=== PATIENT | male | born 1955 | race Caucasian/White ===

== ENCOUNTER 2019-04-27 13:47 | Emergency (ER) | payer MEDICAID, SELFPAY ==
[2019-04-27] VITALS (8 sets, daily range): BP systolic 137–169; BP diastolic 57–110; PULSE 89–121; RESP 16–18; TEMP 36.4–37.1; O2SAT 93–97; BMI 33.6
--- NOTE | 2019-04-27 16:03 | RAD_ITS ---
STUDY: X-RAY - LEFT FOOT CLINICAL: Male, 64 years old. Plantar ulcer. TECHNIQUE: 3 view(s) of the foot. COMPARISON: None. FINDINGS: There is an enthesophyte involving the posterior superior calcaneus at the site of insertion of the Achilles tendon. There is an additional plantar calcaneal enthesophyte present. There are degenerative changes of the subtalar, talonavicular, calcaneocuboid and tarsal articulations. Normal metatarsi. There is loss of all normal tarsometatarsal joint spaces. There is joint space loss of the first MTP joint noted as well. Normal interphalangeal joint of the great toe. Normal phalanges of the great toe. Normal interphalangeal joints and phalanges of the lesser toes. 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 RAD/Foot min 3 Views IMPRESSION: No osteomyelitis identified. Loss of the normal TMT joint spaces likely secondary to underlying arthritis. Soft tissue defect along the plantar aspect of the forefoot blood donor unit assistant with an underlying ulcer. Electronically Signed: Harriet Reveles MD at 17:06 EDT Tel , Service support ,
[2019-04-27] MEDS: 0.9% Normal Saline 1,000 ML 150 ML IV (16:30)
[2019-04-27 16:33] LABS: Absolute Lymphocyte Count 2.03 X10^3/uL (0.83-4.51); Absolute Neutrophil Count 9.2 X10^3/uL (2.0-7.7); Basophil# 0.12 X10^3/uL; Eosinophil# 0.04 X10^3/uL; Eosinophils% 0.3 % (0-5); Hematocrit 52.1 % (40-54); Hemoglobin 17.5 g/dL (13.0-16.5); Lymphocyte # 2.03 X10^3/ul (4.0); Lymphocyte % 16.1 % (19-41); Mean Corp Hgb Conc 33.6 g/dL (32-36); Mean Corpuscular Hgb 31.1 pg (27.0-32.0); Mean Corpuscular Volume 92.7 fL (80-94); Mean Platelet Vol. 10.9 fl (6.2-12.0); Monocyte# 1.11 X10^3/uL; Monocyte% 8.8 % (0-10); NRBC Flagged by Analyzer 0 % (0-5); Neutrophil # 9.17 X10^3/uL (2.7-7.7); Platelet Count 179 K/mm3 (150-450); RBC Distribution Width CV 12.4 % (11.6-14.6); RBC Distribution Width SD 42.5 fl (35.1-43.9); Red Blood Count 5.62 M/mm3 (4.6-6.2); White Blood Count 12.6 K/mm3 (4.4-11.0)
[2019-04-27 16:46] LABS: Anion Gap 11 (5-15); BUN 10 mg/dL (7-18); BUN/Creat Ratio 13.9 RATIO (10-20); Calcium,Total 9.3 mg/dL (8.5-10.1); Chloride 102 mmol/L (98-107); Creatinine, Serum 0.72 mg/dL (0.70-1.30); EST Glomerular Filtration Rate 117 mL/min (>60); Est Glom Filt Rate - Afr Amer 142 mL/min (>60); Estimated Creatinine Clearance 118.68 ml/min; Glucose 402 mg/dL (74-106); Potassium 4.1 mmol/L (3.5-5.1); Sodium Level 136 mmol/L (136-145)
[2019-04-27 16:49] LABS: Erythrocyte Sedimentation Rate 55 mm/hr (0-20)
[2019-04-27 16:56] LABS: Lactic Acid 1.5 mmol/L (0.4-2.0)
--- NOTE | 2019-04-27 17:25 | ED.DCSUM_ITS ---
- ER Visit Summary Date of Service: 04/27/19 Chief Complaint: [Wound to left foot] History of Present Illness: The patient is a 64 M [patient presents the emergency department complaining of a wound to his left foot that has had for years however is progressively worse worsened and now has concern about inf ection over the last week or so. Patient states that over the last 2 to 3 days he has had increased difficulty walking secondary to pain. Patient is noted some drainage from the wound and some foul odor. Denies any fever or chills or sweats. Patient is a diabetic and has history of hypertension however has been noncompliant with his medications because of insurance issues. He does not have a primary care physician.] Physical Examination: [HEENT-PERRLA, EOMI. Cranial nerves II through XII grossly intact. TMs clear. Mucous membranes moist. No adenopathy. Cardiovascular-regular rate and rhythm without murmur or ectopy Lungs-clear to auscultation, chest wall stable without crepitus or subcu emphysema Abdomen-normoactive bowel sounds, soft, nontender, no rebound or rigidity, no peritoneal signs. Extremities-intact ?4, normal range of motion, normal pulses, atraumatic. Left foot-patient has a large wound over the plantar aspect of the first MTP joint of the left foot with some drainage noted from it. Patient has some diffuse erythema surrounding the wound and to the dorsum of the foot. Patient has tenderness to palpation over the first metatarsal. Neurovascularly intact.] Test Results: [CBC with differential obtained showed white count 12.6, hemoglobin 17.5, hematocrit 52, plates 179. Glucose was 402. Sed rate was 55 and CRP was 125.] X-ray of the left foot obtained showed no evidence of osteomyelitis. Emergency Department Course and Treatment: [Patient had a wound culture o btained. Patient was ordered Unasyn and vancomycin. I recommended that we admit the patient for IV antibiotics and surgical consultation. Patient understands my concern about the infection and the infection potentially spreading and patient potentially losing his foot. He states that he has animals at home to care for and he needs to make arrangements for them before he can be admitted but he is willing to come back tomorrow to be admitted. Patient does not want to be admitted this evening. Patient will sign out AGAINST MEDICAL ADVICE. Patient has capacity to do so.] Treatment Plan: [Patient advised to return for admission. Patient also will be given a prescription for clindamycin in the meantime and also referral to podiatry] Disposition: [Discharged AGAINST MEDICAL ADVICE] Impression: [Diabetic foot ulcer left foot Hyperglycemia] This note was generated with [employer] dictation software. It may contain incorrect words, spelling, and punctuation that were not noted in review of the chart prior to signing ED Disposition - Plan for ED Patient: Referrals: Care Physician,No Primary [Primary Care Provider] -
--- NOTE | 2019-04-27 17:29 | ED.DEP ---
ED Disposition - Plan for ED Patient: Instructions: Diabetic Foot Ulcers, ED Diabetic Hyperglycemia Prescriptions: Clindamycin HCl [Cleocin] 300 mg PO Q6H #40 cap Prescription Printed Referrals: Care Physician,No Primary [Primary Care Provider] - Irene Claudio DPM [STAFF PHYSICIAN] - As soon as possible Bassem Heller III, MD [STAFF PHYSICIAN] - As soon as possible
--- NOTE | 2019-04-27 22:30 | ED.RN ---
MD WANTED TO ADMIT PT, PT REFUSED ADMISSION AMA WAS SIGNED BY PT PRIOR TO DISCHARGE AND WITNESSED BY THIS NURSE.PT VERBALIZES IMPORTANCE OF FOLLOWING UP WITH PCP AND WOUND CLINIC FOR CONTINUED CARE OF THE FOOT ULCER.
--- NOTE | 2019-04-28 16:49 | ED.RN ---
Attempt to do a follow up call regarding wound/blood culture reports. Phone number had voice mail of a Dr Olga Barnes. No message was left.
== END 2019-04-27 22:32 | disposition left against medical advice (07) ==
LOC: ED 16:42
PROVIDERS: Emergency Provider Emergency Medicine
DX: E11.621 Type 2 diabetes mellitus with foot ulcer (principal); L97.529 Non-pressure chronic ulcer of other part of left foot with unspecified severity; E11.65 Type 2 diabetes mellitus with hyperglycemia; I10 Essential (primary) hypertension; Z91.14 Patient's other noncompliance with medication regimen
CPT/HCPCS: 73630; 80048; 83605; 85025; 85652; 86140; 87040; 87070; 87077; 87186; 87205; 96361; 96365; 96366; 96367; 99283; J7030; J7040; A4216; J0295

== ENCOUNTER 2019-05-10 05:00 | Inpatient (IN) | payer MEDICAID, SELFPAY ==
[2019-04-27 13:48] VITALS: BMI 33.6
[2019-05-10] VITALS (19 sets, daily range): BP systolic 91–142; BP diastolic 58–84; PULSE 69–105; RESP 16–30; TEMP 36.1–36.9; O2SAT 93–99; BMI 33.2; BMI 32.2; BMI 743.0; BMI 32.3
--- NOTE | 2019-05-10 05:14 | EKG12_ITS ---
Test Reason : ADMISSION/ROUTINE Blood Pressure : / mmHG Vent. Rate : 086 BPM Atrial Rate : 086 BPM P-R Int : 170 ms QRS Dur : 098 ms QT Int : 406 ms P-R-T Axes : 056 062 061 degrees QTc Int : 485 ms Normal sinus rhythm Prolonged QT Abnormal ECG When compared with ECG of 10-MAY-2019 05:33, MANUAL COMPARISON REQUIRED, DATA IS UNCONFIRMED Confirmed by RYDER APRNELL ([id number]), sports editor DENI KERR ([id number]) on 05/17/2019 2:42:19 PM Referred By: MIKA Confirmed By:RYDER PARNELL
--- NOTE | 2019-05-10 05:14 | RAD_ITS ---
STUDY: X-RAY CHEST REASON FOR EXAM: Male, 64 years old. Dyspnea TECHNIQUE: Single AP portable view of the chest. COMPARISON: None. FINDINGS: The lungs are clear and expanded. There is no demonstrated pleural abnormality. Normal size heart. Normal mediastinum and meche. Normal visualized pulmonary arteries. Normal visualized aortic arch and descending thoracic aorta. There are diffuse degenerative changes of the visualized thoracic spine. There is degenerative osteoarthritis of the bilateral shoulders. There is no demonstrated abnormality of the visualized soft tissue structures of the upper abdomen. RAD/Chest 1 View (Portable) IMPRESSION: Degenerative changes, as described above. No demonstrated acute cardiopulmonary process. Electronically Signed: Nanci Daniel, at 5:51 EDT Tel , Service support ,
--- NOTE | 2019-05-10 05:14 | RAD_ITS ---
STUDY: X-RAY - LEFT FOOT CLINICAL: Male, 64 years old. Foot infection TECHNIQUE: 3 view(s) of the foot. COMPARISON: None. FINDINGS: Normal talus, calcaneus, and tarsal bones. Normal visualized subtalar, talonavicular, calcaneocuboid, tarsal and tarsometatarsal articulations. Deformity at the base of the fourth and fifth metatarsals most likely due to healed infection. There is degenerative arthrosis of the metatarsophalangeal joint of the hallux . Normal tibial and fibular sesamoid bones. Normal interphalangeal joint of the great toe. Normal phalanges of the great toe. Normal second through fifth metatarsophalangeal joints. There is bony erosion of the lateral aspect of the base of the proximal phalanx of the toe suggesting osteomyelitis. There is a defect in the soft tissues at the plantar aspect of the big toe. RAD/Foot min 3 Views IMPRESSION: Possible osteomyelitis at the base of the proximal phalanx of the big toe. Electronically Signed: Nanci Daniel, at 6:07 EDT Tel , Service support ,
[2019-05-10] MEDS: 0.9% Normal Saline 1,000 ML 999 ML IV ×4 (05:15→09:37)
[2019-05-10 05:20] LABS: Bedside Glucose > 500 mg/dL (70-110)
--- NOTE | 2019-05-10 05:21 | ED.VIS.GEN ---
History of Present Illness Chief Complaint: Fall Informant: Patient Onset: - - Multiple falls recently Narrative: Patient has been feeling weak and dizzy, urinating a lot, he has been out of insulin for the last couple weeks and has not gotten any because he states he cannot afford it. He was seen in the ER for a left foot wound 2 weeks ago, prescribed antibiotics that he states he just finished. He thinks the wound is looking worse. He has not seen a health provider for it. Today he was lightheaded and fell, states he did not lose consciousness or pass out. Feels dehydrated with dry mouth. He states he sustained some rug burn to his knees and face but denies any major injury from his falls. No neck or back pain. He has peripheral neuropathy related to diabetes, also has numbness in both of his feet, but still feels shooting pains in his left foot from his wound. Paramedics were called this morning, they said he tried to refuse to come but they would let him refused. He did not seem well. His house was very unkempt, he was urinating in buckets and there were feces around the floor. - Past Medical History (1) Type 2 diabetes mellitus Status: Chronic (2) Obstructive sleep apnea Status: Chronic Past Medical History - Allergies and Home Meds Allergies/Adverse Reactions: Allergies No Known Allergies Allergy (Verified 06/23/17 15:08) Primary Care Physician: Care Physician,No Primary [Primary Care Provider] - Lives: Alone Smoking Status: Current every day smoker Alcohol: None Review of Systems General: Reports: Malaise. Denies: Chills, Fever, Sweats Eyes: Denies: Visual changes - bilaterally, Diplopia ENT: Reports: - - Dry mouth. Denies: Rhinorrhea, Sore throat Cardiovascular: Denies: Chest pain, Palpitations Respiratory: Denies: Dyspnea, Cough, Dyspnea on exertion Gastrointestinal: Denies: Abdominal pain, Nausea, Vomiting, Diarrhea, Melena, Hematochezia Genitourinary: Reports: Frequency. Denies: Dysuria, Hematuria Musculoskeletal: Reports: Extremity Pain - Left foot. Denies: Neck pain, Back pain Skin: Reports: Wounds - Left foot. Denies: Rash Neurological: Reports: Numbness - Both feet. Denies: Headache, Weakness Endocrine: Reports: Polyuria, Polydipsia Physical Exam Vital Signs/Narrative: Vital Signs Temp Pulse Resp BP Pulse Ox 05/10/19 05:01 98.3 F 105 H 24 H 129/77 H 93 Inital Vital Signs reviewed: Yes General: Well nourished, Well developed, Unkempt, No Acute Distress - But ill appearing Head: Normocephalic, Atraumatic Eyes: Perrl, EOMI - Without pain or entrapment ENT: No rhinorrhea, TM's clear - Without hemotympanum, Dry mucous membranes, - - Superficial abrasions that are consistent with rug aguilar, right forehead and anterior chin. No bony tenderness.. Negative for: Moist mucous membranes, Sinus tenderness Neck: Supple, Nontender - Full range of motion without pain or neurologic symptom Cardiovascular: Regular rate, Regular rhythm, No murmurs, Tachycardia Respiratory: No distress, CTA bilaterally, Chest nontender Abdomen: Soft, Nontender, Nondistended, Normal bowel sounds, Ventral hernia, Hernia reducible Back: Nontender, Normal Inspection. Negative for: CVA tenderness Extremities: No edema, Tenderness - Left foot wound Skin: Normal color, Rash - Complex left mid/fore-foot wound with dorsal and plantar aspects. Appears grossly infected with some green and/or necrotic aspects. Significant surrounding cellulitis that does not extend to the lower leg, there is no lymphangitis, Trauma - abrasions to both knees without tenderness; facial abrasions. Neurological: Alert, Oriented x3, Cranial nerves II-XII grossly intact, Normal Strength. Negative for: Normal Sensation - Numb in feet but high speed warper tender in left foot wound Psychological: Normal affect, Normal Mood Diagnostic/Tx/Re-eval Impressions Chest X-Ray 05/10/19 05:14 IMPRESSION: Degenerative changes, as described above. No demonstrated acute cardiopulmonary process. Electronically Signed: Nanci Daniel, at 5:51 EDT Tel , Service support , Foot X-Ray 05/10/19 05:14 IMPRESSION: Possible osteomyelitis at the base of the proximal phalanx of the big toe. Electronically Signed: Nanci Daniel, at 6:07 EDT Tel , Service support , 05/10/19 05:14 Chest 1 View (Portable) [RAD] Stat Xray Foot [Foot min 3 Views] [RAD] Stat Laboratory Results 05/10/19 05/10/19 05/10/19 05:07 05:10 05:10 WBC 23.4 H RBC 5.34 Hgb 16.4 Hct 49.9 MCV 93.4 MCH 30.7 MCHC 32.9 RDW Std Deviation 42.6 RDW Coeff of Fatuma 12.4 Plt Count 367 MPV 11.0 Immature Gran % (Auto) 2.100 H Neut % (Auto) 87.9 H Lymph % (Auto) 4.3 L [place] % (Auto) 5.4 Eos % (Auto) 0.0 Baso % (Auto) 0.3 Absolute Neuts (auto) 20.6 H Absolute Lymphs (auto) 1.00 Nucleated RBC % 0 PT 15.6 H INR 1.3 APTT 37.8 H Sodium Potassium Chloride Carbon Dioxide Anion Gap BUN Creatinine Estim Creat Clear Calc Est GFR (MDRD) Af Amer Est GFR (MDRD) Non-Af BUN/Creatinine Ratio Glucose Lactic Acid Calcium Total Bilirubin AST ALT Alkaline Phosphatase Troponin I Total Protein Albumin Globulin Albumin/Globulin Ratio Urine Color Urine Clarity Urine pH Ur Specific [place] Urine Protein Urine Glucose (UA) Urine Ketones Urine Occult Blood Urine Nitrite Urine Bilirubin Urine Urobilinogen Ur Leukocyte Esterase Urine RBC Urine WBC Ur Squamous Epith Cells Urine Bacteria Urine Mucus POC Glucose > 500 H* 05/10/19 05/10/19 05/10/19 05:10 05:10 05:40 WBC RBC Hgb Hct MCV MCH MCHC RDW Std Deviation RDW Coeff of Fatuma Plt Count MPV Immature Gran % (Auto) Neut % (Auto) Lymph % (Auto) [place] % (Auto) Eos % (Auto) Baso % (Auto) Absolute Neuts (auto) Absolute Lymphs (auto) Nucleated RBC % PT INR APTT Sodium 134 L Potassium 3.6 Chloride 101 Carbon Dioxide 20.0 L Anion Gap 13 BUN 17 Creatinine 1.33 H Estim Creat Clear Calc 64.25 Est GFR (MDRD) Af Amer 70 Est GFR (MDRD) Non-Af 58 L BUN/Creatinine Ratio 12.8 Glucose 896 H* Lactic Acid 3.1 H Calcium 9.1 Total Bilirubin 0.60 AST 73 H ALT 52 Alkaline Phosphatase 125 H Troponin I 0.523 H Total Protein 8.0 Albumin 2.6 L Globulin 5.4 H Albumin/Globulin Ratio 0.5 L Urine Color Straw Urine Clarity Clear Urine pH 6.5 Ur Specific [place] 1.010 Urine Protein Negative Urine Glucose (UA) 1000 H Urine Ketones 5 H Urine Occult Blood 150 H Urine Nitrite Negative Urine Bilirubin Negative Urine Urobilinogen Normal Ur Leukocyte Esterase Negative Urine RBC 0 SEEN Urine WBC 0 SEEN Ur Squamous Epith Cells 0 SEEN Urine Bacteria 0 SEEN Urine Mucus 0 SEEN POC Glucose - Rhythm Strip Rhythm Strip: Sinus Tach Rate: 110 Ectopy: None - EKG Initial EKG Interpretation: Sinus Rhythm, No Acute Injury Pattern, Non-Specific ST Changes - V3-6 with J-point elevation and concave ST elevation, no reciprocal changes Prior: No Prior - Medical Decision Making Clinically, patient is awake and conversive, but appears dehydrated, tachycardic, ill but relatively stable. His left foot wound looks awful. We obtained blood cultures, I sterilized the top of his foot where the worst aspects of the wound are with chlorhexidine, followed by expressing clear fluid from the peroneal-most wound and swabbing the tibial wound with both aerobic and anaerobic swabs. After blood work was obtained we quickly started both Zosyn and vancomycin. X-rays show suspicion for osteomyelitis in the proximal phalanx of the great toe, consistent with the location of the plantar wound, which was the main wound present at his prior visit. His blood sugar is a 96. He is getting IV fluid boluses, and he will also get some insulin. His heart rate is come down to the 90s with a liter of fluid so far. His troponin is elevated but his EKG does not appear to show any acute injury although he has slight J-point elevation of a millimeter and mild subsequent concave ST elevation in the V3-6 leads. He has no chest pain and I do not think this indicates a STEMI. He has no prior EKGs available for comparison. He was given morphine for his left foot pain. Plan is for admission for further care. Patient is amenable this time. Discussed w/ Dr. Vasquez, who prefers PCU vs ICU, and to hold off on insulin gtt. - Critical Care Time Critical care time (excluding procedures): 30-74 minutes - 45 min, Including time spent:, Discussing w/Patient &/or Family/Beet End Supervisor, Discussing w/Consultants, Arranging Admission or Transfer, Performing Direct Patient Care at Bedside ED Disposition - Plan for ED Patient: Disposition: Acute Care Hospital [facility] Diagnosis: Uncontrolled diabetes mellitus, Hyperglycemia due to type 2 diabetes mellitus, Diabetic infection of left foot, Osteomyelitis of great toe of left foot, DEAN (acute kidney injury), Severe sepsis, Elevated troponin Referrals: Care Physician,No Primary [Primary Care Provider] -
[2019-05-10 05:44] LABS: International Normalized Ratio 1.3; Prothrombin Time (Protime)PT. 15.6 SECONDS (11.7-14.9)
[2019-05-10 05:45] LABS: Absolute Neutrophil Count 20.6 X10^3/uL (2.0-7.7); Basophil# 0.08 X10^3/uL; Basophil% 0.3 % (0-1); Differential Indicated SCAN CRITERIA MET; Hematocrit 49.9 % (40-54); Hemoglobin 16.4 g/dL (13.0-16.5); Lymphocyte % 4.3 % (19-41); Mean Corp Hgb Conc 32.9 g/dL (32-36); Mean Corpuscular Hgb 30.7 pg (27.0-32.0); Mean Corpuscular Volume 93.4 fL (80-94); Monocyte# 1.26 X10^3/uL; Monocyte% 5.4 % (0-10); NRBC Flagged by Analyzer 0 % (0-5); Neutrophil # 20.61 X10^3/uL (2.7-7.7); Neutrophil % 87.9 % (47-70); POSITIVE DIFFERENTIAL YES; POSITIVE MORPHOLOGY YES; Partial Thromboplast Time 37.8 Seconds (24.1-36.2); Platelet Count 367 K/mm3 (150-450); RBC Distribution Width CV 12.4 % (11.6-14.6); RBC Distribution Width SD 42.6 fl (35.1-43.9); Red Blood Count 5.34 M/mm3 (4.6-6.2); White Blood Count 23.4 K/mm3 (4.4-11.0)
--- NOTE | 2019-05-10 05:48 | ED.RN ---
PT STATES I DON'T TAKE ANY MEDICINE DAILY. I AM SUPPOSED TO BUT I CAN NOT AFFORD IT . MEDICATION LIST ONLY PARTIALLY COMPLETED. DID NOT REMOVE ALL MEDICATIONS SO ABLE TO SEE WHAT PT WAS TAKING
[2019-05-10 05:51] LABS: Bacteria 0 SEEN /hpf (None Seen); Mucous, Urine 0 SEEN /hpf (<or=2+); Red Blood Cells-Urine 0 SEEN /hpf (0-5); Squamous Epithelial Cells - UA 0 SEEN /hpf (0-5); White Blood Cells 0 SEEN /hpf (0-5)
[2019-05-10] MEDS: Morphine 4 MG/ML Syringe IV (06:02)
[2019-05-10 06:11] LABS: Color, Urine Straw (Yellow); Glucose, Dipstick 1000 mg/dl (Normal); Ketone-Dipstick 5 mg/dl (Negative); Leukocyte Esterase-Dipstick Negative /ul (Negative); Nitrite-Dipstick Negative (Negative); Occult Blood-Urine 150 /ul (Negative); Protein-Dipstick Negative (Negative); Urine Bilirubin Dipstick Negative (Negative); Urine Clarity Clear (Clear); Urine Urobilinogen Normal (Normal); Urine pH 6.5 (5.0 - 8.0)
[2019-05-10 06:25] LABS: ALB/GLOB Ratio 0.5 RATIO (0.9-2.4); AST(SGOT) 73 U/L (15-37); Alanine Aminotransfer ALT/SGPT 52 U/L (16-61); Albumin, Serum 2.6 g/dL (3.2-5.0); Alkaline Phosphatase 125 U/L (45-117); Anion Gap 13 (5-15); BUN 17 mg/dL (7-18); BUN/Creat Ratio 12.8 RATIO (10-20); Calcium,Total 9.1 mg/dL (8.5-10.1); Chloride 101 mmol/L (98-107); Creatinine, Serum 1.33 mg/dL (0.70-1.30); EST Glomerular Filtration Rate 58 mL/min (>60); Est Glom Filt Rate - Afr Amer 70 mL/min (>60); Estimated Creatinine Clearance 64.25 ml/min; Globulin 5.4 g/dL (2.2-4.2); Glucose 896 mg/dL (74-106); Potassium 3.6 mmol/L (3.5-5.1); Sodium Level 134 mmol/L (136-145)
--- NOTE | 2019-05-10 06:25 | ED.RN ---
DR GUERRERO NOTIFIED OF GLUCOSE AND LACTIC ACID RESULTS
[2019-05-10 06:26] LABS: Lactic Acid 3.1 mmol/L (0.4-2.0)
[2019-05-10 06:39] LABS: Differential Comment SCANNED
[2019-05-10 07:01] LABS: Bedside Glucose > 500 mg/dL (70-110)
[2019-05-10] MEDS: Insulin Lispro 100 UNIT/ML INSULN.PEN 20 UNIT IV (07:14)
[2019-05-10 07:15] LABS: Osmolality, Serum 323 mOsm/KG (280-301)
[2019-05-10 07:26] LABS: CPK Total, Creatine Kinase 4362 U/L (39-308)
--- NOTE | 2019-05-10 07:47 | HP.PCM_ITS ---
Problem List (1) Morbid obesity due to excess calories Status: Chronic (2) Tobacco dependence due to cigarettes Status: Chronic (3) DEAN (acute kidney injury) Status: Acute (4) Diabetic infection of left foot Status: Acute (5) Elevated troponin Status: Acute (6) Osteomyelitis of great toe of left foot Status: Chronic (7) Severe sepsis Status: Acute (8) Uncontrolled diabetes mellitus Status: Chronic Qualifiers: Diabetes mellitus type: type 2 (9) Obstructive sleep apnea Status: Chronic (10) Type 2 diabetes mellitus Status: Chronic (11) Diabetic neuropathy Status: Chronic Qualifiers: Diabetes mellitus type: type 2 Diabetes mellitus complication detail: diabetic polyneuropathy Qualified Code(s): E11.42 - Type 2 diabetes mellitus with diabetic polyneuropathy (12) Dehydration Status: Acute (13) Diabetic hyperosmolar non-ketotic state Status: Acute (14) Hypertension Status: Chronic (15) Peripheral vascular disease Status: Suspected History of Present Illness Date of Admission: 05/10/19 Chief Complaint: red foot with open wounds The patient is a 64 year old M with a past medical history of hypertension, diabetes mellitus type 2, diabetic polyneuropathy, tobacco dependence, morbid obesity, and ANT who was brought to the ED by squad with lightheadedness and a fall and infection due to diabetic ulcers of the the left foot. He fell and was unable to get to the phone so he had to crawl thus the abrasions on his knees. He also has abrasions on both knees, his chin and forehead. He was seen in the Ed on 04/27/2019 and was sent home with a prescription for clindamycin. He admits to pain in his left lower extremity, primarily in the left foot. He has not taken any of his medications in 2 weeks. He has been having polyuria and polydipsia. He lives by himself and is not taking care of himself. The EMT's stated he has been urinating in buckets and there was stool around the floor. Vital signs at presentation to the emergency department were temperature 98.3, pulse rate 105, blood pressure 129/77, respiratory rate 24 and he was 93 to 99% saturated on room air. White blood cell count was elevated at 23.4 with 88% neutrophils and 2.1% immature granulocytes. Hemoglobin was 16.4 and platelets were within normal limits. MCV was normal. Sodium was low at 134 and the serum bicarb was mildly decreased at 20. BUN is 17 and the creatinine is 1.33, up from 0.72 on . Serum osmolality is high at 323 and the lactic acid is 3.1. AST is mildly increased at 73 and the alkaline phosphatase is mildly increased at 125. Troponin was 0.523. Urine was negative for protein and had no white blood cells. Random blood sugar was 896. the EKG showed NSR with no significant ST or T wave changes. He denied CP, SOB, palpitations. He had a stress that was negative many years ago. There is a FH of CVD in his father. 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) Allergies No Known Allergies Allergy (Verified 06/23/17 15:08) Home Medications: Ambulatory Orders Medication Instructions Recorded Calcium Carbonate [Calcium] 500 mg PO DAILY 06/23/17 Cephalexin [Keflex] 500 mg PO Q6 #40 capsule 06/23/17 Dulaglutide [Trulicity] 1.5 mg SQ QWEEK 06/23/17 Gabapentin [Neurontin] 300 mg PO TIDCM 06/23/17 Lisinopril [Zestril] 10 mg PO DAILY 06/23/17 Metformin HCl 1,000 mg PO BID 06/23/17 Multivitamin [Multiple Vitamins] 1 each PO DAILY 06/23/17 Potassium Chloride [K-Tab ER] 8 meq PO DAILY 06/23/17 Clindamycin HCl [Cleocin] 300 mg PO Q6H #40 cap 04/27/19 Surgical History: - - Surgery to the right ankle for fracture Psychiatric History: No pertinent psych hx Lives: Alone Smoking Status: Current every day smoker - 1-1/2 packs/day Tobacco Use: Cigarettes Alcohol: Rare Drugs: None - *Family History Maternal History Items: Diabetes Paternal History Items: Heart Disease Sibling History Items: Cancer - breast cancer in his sister Review of Systems Constitutional: Reports: Weakness. Denies: Chills, Fever, Weight Change Eyes: Reports: Blurred vision HEENT: Denies: Head Aches, Sinus Congestion, Sinus Drainage Cardiovascular: Reports: Edema - left foot, Light Headedness. Denies: Chest Pain, Palpitations Respiratory: Denies: Cough, Shortness of breath at rest, Sputum production Gastrointestinal: Denies: Abdominal Pain, Nausea, Vomiting Genitourinary: Reports: Frequency. Denies: Dysuria Musculoskeletal: Reports: Joint Tenderness - R ankle and the left ankle also. Denies: Joint Pain Skin: Reports: Wounds - diabetic foot ulcers on the dorsal and plantar surfaces of the left foot. Denies: Rash Neurological: Reports: Numbness - both feet. Denies: Focal weakness, Tingling Psychiatric: Denies: Anxiety, Depression, Homicidal Ideations, Suicidal Ideations Endocrine: Reports: Polydipsia, Polyuria Hematologic/ Lymphatic: Denies: Easy Bruising, Easy Bleeding, Hx of blood clot VTE Information - Inpt Only VTE Present on Admission: No VTE Mechan Device Prophylaxis: SCD's VTE Pharm Prophylaxis ordered?: Yes Patient Problems: Active and Suspected Problems Diabetic infection of left foot (Acute) DEAN (acute kidney injury) (Acute) Severe sepsis (Acute) Elevated troponin (Acute) Dehydration (Acute) Diabetic hyperosmolar non-ketotic state (Acute) Peripheral vascular disease (Suspected) - Physical Exam General: Alert, Oriented x3, Cooperative, Well developed, Well nourished, - - looks very tired HEENT: PERRLA, EOMI, Normocephalic, - - he has abrasions on the chin and the forehead Oral: No Gingival or Mucosal Lesions/ Ulcerations, Dry Mucosa Neck: Supple, No JVD, Negative Carotid Bruits, No Nodes, No Nuchal Rigidity, Trachea Midline Lungs: Clear to auscultation, Diminished Cardiovascular: Regular rate, Regular Rhythm, Normal S1, Normal S2, No murmurs, No rub noted, No Gallop Abdomen: Bowel Sounds Present, Soft, Non Tender, Non-Distended, Obese, - - No abdominal bruits Extremities: No clubbing, No cyanosis, Edema - of the left foot Skin: No rashes, Ulcer/ Wound - necrotic ulcers on the dorsum of the left foot and also a plantar ulcer, there is erythema of the dorsum of the left foot and it is warm to touch. the erythema involves the ankle Lymphatic: No Cervical, Supraclavicular, or Inguinal Adenopathy Neurological: Cranial nerves II-XII grossly intact, Neuro grossly intact, - - decreased sensation both LE's due to diabetic neuropathy Psych/Mental Status: Appropriate, Flat Affect Vital Signs Temp Pulse Resp BP Pulse Ox 97.9 F 97 29 H 139/62 H 96 05/10/19 07:10 05/10/19 07:10 05/10/19 07:10 05/10/19 07:10 05/10/19 07:10 Oxygen Delivery Method Room Air Weight: 244 lb 7.882 oz Body Mass Index (BMI) 32.2 Finger Stick Blood Glucose 600 Microbiology Past 72 Hours 05/10/19 05:40 Gram Stain - Final Wound Abcess - Left Foot Laboratory Tests Past 24 Hrs 05/10/19 05/10/19 05/10/19 05:10 05:10 05:10 WBC 23.4 H RBC 5.34 Hgb 16.4 Hct 49.9 MCV 93.4 MCH 30.7 MCHC 32.9 RDW Std Deviation 42.6 RDW Coeff of Fatuma 12.4 Plt Count 367 MPV 11.0 Immature Gran % (Auto) 2.100 H Neut % (Auto) 87.9 H Lymph % (Auto) 4.3 L [place] % (Auto) 5.4 Eos % (Auto) 0.0 Baso % (Auto) 0.3 Absolute Neuts (auto) 20.6 H Absolute Lymphs (auto) 1.00 Nucleated RBC % 0 Differential Comment SCANNED PT 15.6 H INR 1.3 APTT 37.8 H Sodium 134 L Potassium 3.6 Chloride 101 Carbon Dioxide 20.0 L Anion Gap 13 BUN 17 Creatinine 1.33 H Estim Creat Clear Calc 64.25 Est GFR (MDRD) Af Amer 70 Est GFR (MDRD) Non-Af 58 L BUN/Creatinine Ratio 12.8 Glucose 896 H* Serum Osmolality Lactic Acid Calcium 9.1 Total Bilirubin 0.60 AST 73 H ALT 52 Alkaline Phosphatase 125 H Total Creatine Kinase Troponin I 0.523 H Total Protein 8.0 Albumin 2.6 L Globulin 5.4 H Albumin/Globulin Ratio 0.5 L Urine Color Urine Clarity Urine pH Ur Specific [place] Urine Protein Urine Glucose (UA) Urine Ketones Urine Occult Blood Urine Nitrite Urine Bilirubin Urine Urobilinogen Ur Leukocyte Esterase Urine RBC Urine WBC Ur Squamous Epith Cells Urine Bacteria Urine Mucus 05/10/19 05/10/19 05/10/19 05:10 05:20 05:20 WBC RBC Hgb Hct MCV MCH MCHC RDW Std Deviation RDW Coeff of Fatuma Plt Count MPV Immature Gran % (Auto) Neut % (Auto) Lymph % (Auto) [place] % (Auto) Eos % (Auto) Baso % (Auto) Absolute Neuts (auto) Absolute Lymphs (auto) Nucleated RBC % Differential Comment PT INR APTT Sodium Potassium Chloride Carbon Dioxide Anion Gap BUN Creatinine Estim Creat Clear Calc Est GFR (MDRD) Af Amer Est GFR (MDRD) Non-Af BUN/Creatinine Ratio Glucose Serum Osmolality 323 H Lactic Acid 3.1 H Calcium Total Bilirubin AST ALT Alkaline Phosphatase Total Creatine Kinase 4362 H Troponin I Total Protein Albumin Globulin Albumin/Globulin Ratio Urine Color Urine Clarity Urine pH Ur Specific [place] Urine Protein Urine Glucose (UA) Urine Ketones Urine Occult Blood Urine Nitrite Urine Bilirubin Urine Urobilinogen Ur Leukocyte Esterase Urine RBC Urine WBC Ur Squamous Epith Cells Urine Bacteria Urine Mucus 05/10/19 05:40 WBC RBC Hgb Hct MCV MCH MCHC RDW Std Deviation RDW Coeff of Fatuma Plt Count MPV Immature Gran % (Auto) Neut % (Auto) Lymph % (Auto) [place] % (Auto) Eos % (Auto) Baso % (Auto) Absolute Neuts (auto) Absolute Lymphs (auto) Nucleated RBC % Differential Comment PT INR APTT Sodium Potassium Chloride Carbon Dioxide Anion Gap BUN Creatinine Estim Creat Clear Calc Est GFR (MDRD) Af Amer Est GFR (MDRD) Non-Af BUN/Creatinine Ratio Glucose Serum Osmolality Lactic Acid Calcium Total Bilirubin AST ALT Alkaline Phosphatase Total Creatine Kinase Troponin I Total Protein Albumin Globulin Albumin/Globulin Ratio Urine Color Straw Urine Clarity Clear Urine pH 6.5 Ur Specific [place] 1.010 Urine Protein Negative Urine Glucose (UA) 1000 H Urine Ketones 5 H Urine Occult Blood 150 H Urine Nitrite Negative Urine Bilirubin Negative Urine Urobilinogen Normal Ur Leukocyte Esterase Negative Urine RBC 0 SEEN Urine WBC 0 SEEN Ur Squamous Epith Cells 0 SEEN Urine Bacteria 0 SEEN Urine Mucus 0 SEEN POC Glucose 05/10/19 05/10/19 06:55 05:07 POC Glucose > 500 H* > 500 H* Assessment/Plan All Active Problems Diabetic infection of left foot (Acute) DEAN (acute kidney injury) (Acute) Severe sepsis (Acute) Elevated troponin (Acute) Dehydration (Acute) Diabetic hyperosmolar non-ketotic state (Acute) Impressions 1. severe sepsis due to diabetic foot infection with ARF 2. Diabetic hyperosmolar non-ketotic state 3. DM II - uncontrolled. 4. ARF - likely pre-renal. The fractional excretion of sodium is less than 1%. 5. Diabetic foot infection with necrosis and osteomyelitis 6. Dehydration 7. Diabetic peripheral polyneuropathy 8. Tobacco dependence 9. ANT-noncompliant with CPAP 10. Abrasions to both knees, chin, nose and forehead 11. Hypertension 12. Hypokalemia 13. Rhabdomyolysis 14. Elevated troponin-more likely than not due to demand ischemia related to severe sepsis 15. Stage I diastolic dysfunction with inferobasal hypokinesis 16 hyponatremia-resolved Consult Dr. Claudio Consult Dr. Pathak Serial cardiac enzymes Supplement potassium Hydrate Recheck lab in the a.m. Echocardiogram Urine sodium, chloride, creatinine and potassium Get the blood sugars under control MRSA PCR of wound drainage-negative Continue vancomycin and Zosyn for now Check a phosphorus and magnesium ESR and CRP Smoking cessation counseling was given-NicoDerm patch written for Will likely need amputation (possibly a transmetatarsal amputation- Dr. Claudio will be taking to surgery tonight Needs a stress test going forward Blood cultures ordered, wound culture taken SCDs and enoxaparin for DVT prophylaxis Famotidine 20 mg twice daily for GI prophylaxis Code Visit Inpatient E&M: 24977 Init Hosp L3
--- NOTE | 2019-05-10 08:01 | MRI_ITS ---
STUDY: MRI LEFT MIDFOOT REASON FOR EXAM: Male, 64 years old. TECHNIQUE: Standardized fat and water weighted pulse sequences were obtained in all 3 orthogonal planes. COMPARISON: None. FINDINGS: Mild Charcot changes of the forefoot and midfoot. Extensive cellulitis adjacent to the MTP joint of the first digit with a soft tissue ulceration extending to the plantar tendons of the first digit. Large area of soft tissue edema along the extensor surface of the foot adjacent to the heads of the first and second toes (sagittal series 3 images 18-27).. Increased signal intensity within the head of the first metatarsal and the proximal phalanx of the first digit. These findings are compatible with contiguous-spread osteomyelitis of the head of the first metatarsal and the proximal phalanx of the first metatarsal (sagittal series 3 images 18-27). MRI/Lower Ext/No Jt/w/o IMPRESSION: Mild Charcot changes of the forefoot and midfoot. Findings compatible with contiguous size and spread osteomyelitis of the head and proximal phalanx of the first metatarsal. Electronically Signed: Nabil Daniels MD at 10:54 EDT , Service support ,
--- NOTE | 2019-05-10 08:06 | ART_ITS ---
Reason For Study: Decreased pedal pulses Procedure A bilateral lower extremity continuous wave Doppler with analog waveform analysis,segmental pressures,and ankle brachial indexes without exercise. Left Segmental Pressures Left posterior tibial artery = 149mmHg. Left dorsalis pedis artery = 144mmHg. Left digit = >254 mmHg. The left dorsalis pedis waveforms are triphasic. The left posterior tibial artery waveforms are triphasic. Right Segmental Pressures Right brachial= 134mmHg. Right posterior tibial artery = 148mmHg. Right dorsalis pedis artery = 137mmHg. Right digit = 78 mmHg. The right dorsalis pedis waveforms are triphasic. The right posterior tibial artery waveforms are triphasic. Indices The right ankle brachial index by the dorsalis pedis is 1.02. The right ankle brachial index by the posterior tibial artery is 1.10. The right digital-brachial index is 0.58. The left ankle brachial index by the posterior tibial artery is 1.07. The left ankle brachial index by the dorsalis pedis is 1.11. The left digital-brachial index is NC. Interpretation Summary Triphasic Doppler waveforms are noted at ankle level bilaterally. Pulse-volume recording waveform amplitudes appear satisfactory at all levels, including low-thigh, calf, ankle, and digital levels. Resting ankle-brachial indices are normal bilaterally. The right digital-brachial index is mildly diminished. The left digital-brachial index could not be determined due to the non-compressibility of the vasculature at digital level. Arterial flow appears normal to ankle level bilaterally. The right digital-brachial index suggests mild, distal, small-vessel arterial occlusive disease in the right lower extremity. There appears to be arterial calcification at digital level on the left, precluding complete assessment of arterial flow at this level. Clinical correlation is advised. Ordering Physician: Shivani Vasquez Performed By: Madai Crockett RVT
[2019-05-10 08:18] LABS: Phosphorus 2.7 mg/dL (2.5-4.9)
--- NOTE | 2019-05-10 08:19 | EKG12_ITS ---
Test Reason : FALL Blood Pressure : / mmHG Vent. Rate : 098 BPM Atrial Rate : 098 BPM P-R Int : 166 ms QRS Dur : 096 ms QT Int : 370 ms P-R-T Axes : 064 059 060 degrees QTc Int : 472 ms Normal sinus rhythm Normal ECG Confirmed by SULEIMAN VACA, DAWOOD ([id number]), book editor CHERYL EDWARD ([id number]) on 05/11/2019 1:41:10 PM Referred By: CESAR Confirmed By:DAWOOD BEARDEN MD
[2019-05-10 08:29] LABS: Erythrocyte Sedimentation Rate 102 mm/hr (0-20)
[2019-05-10 08:39] LABS: Hemoglobin A1c 13.3 % (4.2-6.3)
--- NOTE | 2019-05-10 09:08 | PCM.RX.CS ---
Consult Pharmacy has been consulted to manage selected antiobiotic: Vancomycin Type of Consult: New start Suspected Infection: Osteomyelitis Prior Doses of Antibiotics Received/Current Regimen: 1 X 1750MG IN ED AT 0542 Labs: Sodium 134 mmol/L (136-145) L 05/10/19 05:10 Potassium 3.6 mmol/L (3.5-5.1) 05/10/19 05:10 Chloride 101 mmol/L (98-107) 05/10/19 05:10 Carbon Dioxide 20.0 mmol/L (21.0-32.0) L 05/10/19 05:10 13 (5-15) 05/10/19 05:10 BUN 17 mg/dL (7-18) 05/10/19 05:10 1.33 mg/dL (0.70-1.30) H 05/10/19 05:10 Est GFR (MDRD) Af Amer 70 mL/min (>60) 05/10/19 05:10 Est GFR (MDRD) Non-Af 58 mL/min (>60) L 05/10/19 05:10 12.8 RATIO (10-20) 05/10/19 05:10 Glucose 896 mg/dL (74-106) H* 05/10/19 05:10 TROUGH LEVEL ORDERED 30 MIN PRIOR TO 4TH DOSE = 05/11/19 @ 1730 Microbiology: Microbiology 05/10/19 05:40 Wound Abcess - Left Foot Gram Stain - Final Weight used for dosin.9 kg Estimated Creatinine Clearance: 64.25 Goal Trough: 15-20 mcg/mL - VANCOMYCIN IVPB 1500MG Q12H Pharmacy Plan for Drug Dosing: Pharmacy Service will continue to monitor and adjust dosing as required.
[2019-05-10 09:31] LABS: Reflex Lactate? Y
[2019-05-10] MEDS: 0.9% Normal Saline 1,000 ML 200 ML IV ×2 (09:37→11:44)
[2019-05-10] MEDS: Calcium (Elemental) 500 MG Tablet PO (09:38)
[2019-05-10] MEDS: Docusate Sodium 100 MG Capsule PO ×2 (09:38→22:51)
[2019-05-10] MEDS: Multivitamins,Therapeutic Tablet 1 TABLET PO (09:38)
[2019-05-10] MEDS: Famotidine 20 MG Tablet PO ×2 (09:38→22:52)
[2019-05-10] MEDS: Enoxaparin 40 MG/0.4 ML Syringe SC (09:39)
[2019-05-10] MEDS: Lisinopril 10 MG Tablet PO (09:39)
--- NOTE | 2019-05-10 09:51 | NURSING ---
wound photo: left dorsal foot
--- NOTE | 2019-05-10 09:53 | NURSING ---
wound photo: left plantar foot
--- NOTE | 2019-05-10 09:53 | NURSING ---
wound photo: bilateral knees
--- NOTE | 2019-05-10 09:54 | NURSING ---
wound photo: right plantar lateral foot
[2019-05-10 10:12] LABS: Lactic Acid 1.6 mmol/L (0.4-2.0)
[2019-05-10] MEDS: Insulin Lispro 100 UNIT/ML INSULN.PEN SC ×3 (11:26→22:51)
--- NOTE | 2019-05-10 12:14 | CON.PCM_ITS ---
Problem List (1) Chronic ulcer of left foot with necrosis of bone Status: Chronic (2) Diabetic infection of left foot Status: Acute (3) Osteomyelitis of great toe of left foot Status: Chronic (4) Severe sepsis Status: Acute (5) Peripheral vascular disease Status: Suspected Reason for Consult Date of Consultation: 05/10/19 Reason for Consultation: Left foot infection History of Present Illness: The patient is a 64 year old M with multiple comorbidities including diabetic neuropathy, hyperglycemia, hypertension, and obstructive sleep apnea was seen bedside this afternoon for left foot infection with associated severe sepsis. He relates his foot progressively worsened in a rapid manner for the past 2 weeks and dates the initial ulcer onset to about 1-1/2 years ago. He has been treated in outpatient setting with an outside provider which she does not remember the care providers name. He denies trauma or exposure to pets. He denies soaking the foot. It is noted that he presented to the emergency room on April 29 and left AGAINST MEDICAL ADVICE on oral clindamycin. He returned earlier today due to dizziness and was found that his blood sugar was over 900 mg/dL. He denies current fever or chills, nausea or vomiting. His family is bedside. His family reports he is unable to safely take care of himself at home and ask for social work assistance for assistive services. He denies claudication however also denies routine ambulation. He does have rest paresthesias which is consistent with neuropathy. 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) Allergies No Known Allergies Allergy (Verified 06/23/17 15:08) Home Medications: Ambulatory Orders Medication Instructions Recorded Calcium Carbonate [Calcium] 500 mg PO DAILY 06/23/17 Cephalexin [Keflex] 500 mg PO Q6 #40 capsule 06/23/17 Dulaglutide [Trulicity] 1.5 mg SQ QWEEK 06/23/17 Gabapentin [Neurontin] 300 mg PO TIDCM 06/23/17 Lisinopril [Zestril] 10 mg PO DAILY 06/23/17 Metformin HCl 1,000 mg PO BID 06/23/17 Multivitamin [Multiple Vitamins] 1 each PO DAILY 06/23/17 Potassium Chloride [K-Tab ER] 8 meq PO DAILY 06/23/17 Clindamycin HCl [Cleocin] 300 mg PO Q6H #40 cap 04/27/19 Surgical History: - - Surgery to the right ankle for fracture Psychiatric History: No pertinent psych hx Lives: Alone Smoking Status: Current every day smoker Tobacco Use: Cigarettes Alcohol: Rare Drugs: None - *Family History Maternal History Items: Diabetes Paternal History Items: Heart Disease Sibling History Items: Cancer - breast cancer in his sister Review of Systems Constitutional: Reports: Weakness, Fatigue. Denies: Chills, Fever Cardiovascular: Denies: Chest Pain, Claudication Respiratory: Denies: Shortness of Breath Gastrointestinal: Denies: Diarrhea, Nausea, Vomiting Musculoskeletal: Reports: Foot Pain. Denies: Joint Tenderness, Leg Pain Skin: Reports: Skin Changes, Wounds Neurological: Reports: Numbness, Tingling Endocrine: Reports: Polydipsia, Polyuria Patient Problems: Active and Suspected Problems Diabetic infection of left foot (Acute) DEAN (acute kidney injury) (Acute) Severe sepsis (Acute) Elevated troponin (Acute) Dehydration (Acute) Diabetic hyperosmolar non-ketotic state (Acute) Peripheral vascular disease (Suspected) - Physical Exam General: Alert, Oriented x3, Cooperative, Lethargic HEENT: Atraumatic Extremities: Capillary Refill Less than 3 Seconds - All digits left, No Calf Tenderness - Negative Ernie and Rangel sign bilateral, Diminished Peripheral Pulses - Nonpalpable PT and DP pulses left, - - Also manipulation pain is noted. There is fibrous necrotic devitalized dorsal foot with purulence on expression and positive probe to bone. This site does communicate with the plantar sub-fir st metatarsal ulcer site with significant peripheral callus buildup. His peripheral skin is hairless and atrophic. There is no interdigital maceration. A significant degree of tissue devitalized is noted which is a concern for limbs salvageability. Skin: Ulcer/ Wound - Significant tissue loss and necrosis and purulence noted to left foot. There is mild peripheral erythema with no distinct streaking. Musculoskeletal: No Tenderness to Palpation of Joints or Extremities, Muscle Wasting, - - Active range of motion toes left. Compartments remain soft to palpate the left foot, ankle, and leg. Neurological: - - Lack of normal epicritic sensation light touch consistent with neuropathy Psych/Mental Status: Normal Affect, Appropriate Vital Signs Temp Pulse Resp BP Pulse Ox 98.4 F 84 16 130/78 H 97 05/10/19 10:30 05/10/19 11:48 05/10/19 10:30 05/10/19 10:30 05/10/19 11:05 Oxygen Delivery Method Room Air Weight: 110.9 kg Body Mass Index (BMI) 32.2 Finger Stick Blood Glucose 600 Intake and Output for Last 24 Hours 05/08/19 05/09/19 05/10/19 23:59 23:59 23:59 Output Total 350 / 350 Balance -350 / -350 Microbiology Past 72 Hours 05/10/19 05:40 Gram Stain - Final Wound Abcess - Left Foot Laboratory Tests Past 24 Hrs 05/10/19 05/10/19 05/10/19 05:10 05:10 05:10 WBC 23.4 H RBC 5.34 Hgb 16.4 Hct 49.9 MCV 93.4 MCH 30.7 MCHC 32.9 RDW Std Deviation 42.6 RDW Coeff of Fatuma 12.4 Plt Count 367 MPV 11.0 Immature Gran % (Auto) 2.100 H Neut % (Auto) 87.9 H Lymph % (Auto) 4.3 L [place] % (Auto) 5.4 Eos % (Auto) 0.0 Baso % (Auto) 0.3 Absolute Neuts (auto) 20.6 H Absolute Lymphs (auto) 1.00 Nucleated RBC % 0 Differential Comment SCANNED ESR PT 15.6 H INR 1.3 APTT 37.8 H Sodium 134 L Potassium 3.6 Chloride 101 Carbon Dioxide 20.0 L Anion Gap 13 BUN 17 Creatinine 1.33 H Estim Creat Clear Calc 64.25 Est GFR (MDRD) Af Amer 70 Est GFR (MDRD) Non-Af 58 L BUN/Creatinine Ratio 12.8 Glucose 896 H* Hemoglobin A1c Serum Osmolality Lactic Acid Calcium 9.1 Phosphorus Magnesium Total Bilirubin 0.60 AST 73 H ALT 52 Alkaline Phosphatase 125 H Total Creatine Kinase Troponin I 0.523 H C-React Prot Ext Range Total Protein 8.0 Albumin 2.6 L Globulin 5.4 H Albumin/Globulin Ratio 0.5 L Urine Color Urine Clarity Urine pH Ur Specific [place] Urine Protein Urine Glucose (UA) Urine Ketones Urine Occult Blood Urine Nitrite Urine Bilirubin Urine Urobilinogen Ur Leukocyte Esterase Urine RBC Urine WBC Ur Squamous Epith Cells Urine Bacteria Urine Mucus S.aureus Protein A PCR MRSA (PCR) 05/10/19 05/10/19 05/10/19 05:10 05:10 05:10 WBC RBC Hgb Hct MCV MCH MCHC RDW Std Deviation RDW Coeff of Fatuma Plt Count MPV Immature Gran % (Auto) Neut % (Auto) Lymph % (Auto) [place] % (Auto) Eos % (Auto) Baso % (Auto) Absolute Neuts (auto) Absolute Lymphs (auto) Nucleated RBC % Differential Comment ESR 102 H PT INR APTT Sodium Potassium Chloride Carbon Dioxide Anion Gap BUN Creatinine Estim Creat Clear Calc Est GFR (MDRD) Af Amer Est GFR (MDRD) Non-Af BUN/Creatinine Ratio Glucose Hemoglobin A1c 13.3 H Serum Osmolality Lactic Acid 3.1 H Calcium Phosphorus Magnesium Total Bilirubin AST ALT Alkaline Phosphatase Total Creatine Kinase Troponin I C-React Prot Ext Range Total Protein Albumin Globulin Albumin/Globulin Ratio Urine Color Urine Clarity Urine pH Ur Specific [place] Urine Protein Urine Glucose (UA) Urine Ketones Urine Occult Blood Urine Nitrite Urine Bilirubin Urine Urobilinogen Ur Leukocyte Esterase Urine RBC Urine WBC Ur Squamous Epith Cells Urine Bacteria Urine Mucus S.aureus Protein A PCR MRSA (PCR) 05/10/19 05/10/19 05/10/19 05:10 05:20 05:20 WBC RBC Hgb Hct MCV MCH MCHC RDW Std Deviation RDW Coeff of Fatuma Plt Count MPV Immature Gran % (Auto) Neut % (Auto) Lymph % (Auto) [place] % (Auto) Eos % (Auto) Baso % (Auto) Absolute Neuts (auto) Absolute Lymphs (auto) Nucleated RBC % Differential Comment ESR PT INR APTT Sodium Potassium Chloride Carbon Dioxide Anion Gap BUN Creatinine Estim Creat Clear Calc Est GFR (MDRD) Af Amer Est GFR (MDRD) Non-Af BUN/Creatinine Ratio Glucose Hemoglobin A1c Serum Osmolality 323 H Lactic Acid Calcium Phosphorus 2.7 Magnesium 2.0 Total Bilirubin AST ALT Alkaline Phosphatase Total Creatine Kinase 4362 H Troponin I C-React Prot Ext Range 166.00 H Total Protein Albumin Globulin Albumin/Globulin Ratio Urine Color Urine Clarity Urine pH Ur Specific [place] Urine Protein Urine Glucose (UA) Urine Ketones Urine Occult Blood Urine Nitrite Urine Bilirubin Urine Urobilinogen Ur Leukocyte Esterase Urine RBC Urine WBC Ur Squamous Epith Cells Urine Bacteria Urine Mucus S.aureus Protein A PCR MRSA (PCR) 05/10/19 05/10/19 05/10/19 05:40 08:25 08:30 WBC RBC Hgb Hct MCV MCH MCHC RDW Std Deviation RDW Coeff of Fatuma Plt Count MPV Immature Gran % (Auto) Neut % (Auto) Lymph % (Auto) [place] % (Auto) Eos % (Auto) Baso % (Auto) Absolute Neuts (auto) Absolute Lymphs (auto) Nucleated RBC % Differential Comment ESR PT INR APTT Sodium Potassium Chloride Carbon Dioxide Anion Gap BUN Creatinine Estim Creat Clear Calc Est GFR (MDRD) Af Amer Est GFR (MDRD) Non-Af BUN/Creatinine Ratio Glucose Hemoglobin A1c Serum Osmolality Lactic Acid Calcium Phosphorus Magnesium Total Bilirubin AST ALT Alkaline Phosphatase Total Creatine Kinase Troponin I 0.410 H C-React Prot Ext Range Total Protein Albumin Globulin Albumin/Globulin Ratio Urine Color Straw Urine Clarity Clear Urine pH 6.5 Ur Specific [place] 1.010 Urine Protein Negative Urine Glucose (UA) 1000 H Urine Ketones 5 H Urine Occult Blood 150 H Urine Nitrite Negative Urine Bilirubin Negative Urine Urobilinogen Normal Ur Leukocyte Esterase Negative Urine RBC 0 SEEN Urine WBC 0 SEEN Ur Squamous Epith Cells 0 SEEN Urine Bacteria 0 SEEN Urine Mucus 0 SEEN S.aureus Protein A PCR Pending MRSA (PCR) Pending 05/10/19 05/10/19 09:40 11:14 WBC RBC Hgb Hct MCV MCH MCHC RDW Std Deviation RDW Coeff of Fatuma Plt Count MPV Immature Gran % (Auto) Neut % (Auto) Lymph % (Auto) [place] % (Auto) Eos % (Auto) Baso % (Auto) Absolute Neuts (auto) Absolute Lymphs (auto) Nucleated RBC % Differential Comment ESR PT INR APTT Sodium Potassium Chloride Carbon Dioxide Anion Gap BUN Creatinine Estim Creat Clear Calc Est GFR (MDRD) Af Amer Est GFR (MDRD) Non-Af BUN/Creatinine Ratio Glucose Hemoglobin A1c Serum Osmolality Lactic Acid 1.6 Calcium Phosphorus Magnesium Total Bilirubin AST ALT Alkaline Phosphatase Total Creatine Kinase Troponin I 0.341 H C-React Prot Ext Range Total Protein Albumin Globulin Albumin/Globulin Ratio Urine Color Urine Clarity Urine pH Ur Specific [place] Urine Protein Urine Glucose (UA) Urine Ketones Urine Occult Blood Urine Nitrite Urine Bilirubin Urine Urobilinogen Ur Leukocyte Esterase Urine RBC Urine WBC Ur Squamous Epith Cells Urine Bacteria Urine Mucus S.aureus Protein A PCR MRSA (PCR) POC Glucose 05/10/19 05/10/19 06:55 05:07 POC Glucose > 500 H* > 500 H* Assessment/Plan All Active Problems Diabetic infection of left foot (Acute) DEAN (acute kidney injury) (Acute) Severe sepsis (Acute) Elevated troponin (Acute) Dehydration (Acute) Diabetic hyperosmolar non-ketotic state (Acute) Left diabetic foot infection with associated severe sepsis Ulcer with necrotic tissue including bone left foot Osteomyelitis left foot hallux and first and second metatarsals Uncontrolled diabetes with neuropathy Malnutrition suspected Peripheral vascular disease suspected Lower extremity edema Other comorbidities Inability to care for self I reviewed and discussed his case. I also reviewed his diagnostic data. It is noted his white blood cell count 23.4 and he has a sedimentation rate of 102. His blood sugar was decreased from 896 to 286 mg/dL this afternoon. His x-rays were reviewed without acute fracture dislocation. There is some soft tissue emphysema to the dorsal forefoot consistent with the ulcer location. There was no foreign body. There is some osseous changes suspicious for ostium myelitis to the proximal fingers of the hallux. The corresponding MRI of the left foot demonstrates devitalized tissue to the forefoot but corresponds with the ulcer sites in addition to bone marrow edema on STIR, decreased hypointensity on T1 and increased hyperintensity on T2 which supports a diagnosis of osteomyelitis. Deep wound cultures were obtained of the foot and these are pending. It is noted he has a negative leukocyte esterase and cultures of his urine were also taken and pending. He was started on IV vancomycin and Zosyn per infectious disease recommendations. Clinically the salvageability of this foot is not likely and I recommend performing an open midfoot amputation to better control his infection status. The indications, planned procedure, possible benefits, risks, complications, and anticipated healing time management were discussed in detail with patient. No guarantees were made. The informed surgical consent and limb will need to be signed. He understands this is likely a staged procedure. I also recommend vascular surgery work-up after his acute life and limb threatening infection surgical intervention today is performed. He understands he is at risk for further amputation. He understands potential complications and risks include but are not limited to following: Pain, swelling, scarring, transfer lesion, need for further surgery, blood clot, allergic reaction, chronic pain, delayed or nonhealing, and continued infection. I answer all his questions. His family was informed of this decision and I also answered their questions. NPO and hold any anticoagulation medication orders were placed at this time. Care coordination for discharge planning and insurance guidance is also needed. Medical management per primary team and infectious diseases also greatly appreciated This case was discussed with the admitting hospitalist, Dr. Vasquez. His surgery will be performed this afternoon or evening pending operating room time availability. I will continue to follow him close while in house. Irene Claudio DPM, [facility] [phone]
--- NOTE | 2019-05-10 12:49 | PCM.HP.ID ---
Problem List (1) Diabetic infection of left foot Status: Acute Reason for Consult: osteo Consulted by: Dr. Vasquez History of Present Illness: The patient is a 64 year old M with uncontrolled DM complicated by neuropathy, presented with several weeks of L foot swelling, pain, redness, drainage. Some associated fever and chills. Denies any pet scratches/bites, no unusual exposures. Came to ED on 04/27, left AMA, given rx for clinda. Next day foot opened with purulent drainage. Now came back 05/09, admitted on vanc/zosyn. Podiatry consulted. MRI done. Pain is a shooting pain. Full ROS performed and neg except as noted above. - Medical History Past Medical History (Chronic Problems): Chronic Problems Type 2 diabetes mellitus (Chronic) Obstructive sleep apnea (Chronic) Uncontrolled diabetes mellitus (Chronic) Morbid obesity due to excess calories (Chronic) Tobacco dependence due to cigarettes (Chronic) Diabetic neuropathy (Chronic) Hypertension (Chronic) Allergies/Adverse Reactions: Allergies No Known Allergies Allergy (Verified 06/23/17 15:08) Home Medications: Ambulatory Orders Medication Instructions Recorded Calcium Carbonate [Calcium] 500 mg PO DAILY 06/23/17 Cephalexin [Keflex] 500 mg PO Q6 #40 capsule 06/23/17 Dulaglutide [Trulicity] 1.5 mg SQ QWEEK 06/23/17 Gabapentin [Neurontin] 300 mg PO TIDCM 06/23/17 Lisinopril [Zestril] 10 mg PO DAILY 06/23/17 Metformin HCl 1,000 mg PO BID 06/23/17 Multivitamin [Multiple Vitamins] 1 each PO DAILY 06/23/17 Potassium Chloride [K-Tab ER] 8 meq PO DAILY 06/23/17 Clindamycin HCl [Cleocin] 300 mg PO Q6H #40 cap 04/27/19 - Social History Tobacco Use: cigarettes Vital Signs Temp Pulse Resp BP Pulse Ox 98.4 F 84 16 130/78 H 97 05/10/19 10:30 05/10/19 11:48 05/10/19 10:30 05/10/19 10:30 05/10/19 11:05 Oxygen Delivery Method Room Air Weight: 110.9 kg Body Mass Index (BMI) 32.2 Finger Stick Blood Glucose 600 Microbiology Past 72 Hours 05/10/19 05:40 Gram Stain - Final Wound Abcess - Left Foot Laboratory Tests Past 24 Hrs 05/10/19 05/10/19 05/10/19 05:10 05:10 05:10 WBC 23.4 H RBC 5.34 Hgb 16.4 Hct 49.9 MCV 93.4 MCH 30.7 MCHC 32.9 RDW Std Deviation 42.6 RDW Coeff of Fatuma 12.4 Plt Count 367 MPV 11.0 Immature Gran % (Auto) 2.100 H Neut % (Auto) 87.9 H Lymph % (Auto) 4.3 L [place] % (Auto) 5.4 Eos % (Auto) 0.0 Baso % (Auto) 0.3 Absolute Neuts (auto) 20.6 H Absolute Lymphs (auto) 1.00 Nucleated RBC % 0 Differential Comment SCANNED ESR PT 15.6 H INR 1.3 APTT 37.8 H Sodium 134 L Potassium 3.6 Chloride 101 Carbon Dioxide 20.0 L Anion Gap 13 BUN 17 Creatinine 1.33 H Estim Creat Clear Calc 64.25 Est GFR (MDRD) Af Amer 70 Est GFR (MDRD) Non-Af 58 L BUN/Creatinine Ratio 12.8 Glucose 896 H* Hemoglobin A1c Serum Osmolality Lactic Acid Calcium 9.1 Phosphorus Magnesium Total Bilirubin 0.60 AST 73 H ALT 52 Alkaline Phosphatase 125 H Total Creatine Kinase Troponin I 0.523 H C-React Prot Ext Range Total Protein 8.0 Albumin 2.6 L Globulin 5.4 H Albumin/Globulin Ratio 0.5 L Urine Color Urine Clarity Urine pH Ur Specific [place] Urine Protein Urine Glucose (UA) Urine Ketones Urine Occult Blood Urine Nitrite Urine Bilirubin Urine Urobilinogen Ur Leukocyte Esterase Urine RBC Urine WBC Ur Squamous Epith Cells Urine Bacteria Urine Mucus S.aureus Protein A PCR MRSA (PCR) 05/10/19 05/10/19 05/10/19 05:10 05:10 05:10 WBC RBC Hgb Hct MCV MCH MCHC RDW Std Deviation RDW Coeff of Fatuma Plt Count MPV Immature Gran % (Auto) Neut % (Auto) Lymph % (Auto) [place] % (Auto) Eos % (Auto) Baso % (Auto) Absolute Neuts (auto) Absolute Lymphs (auto) Nucleated RBC % Differential Comment ESR 102 H PT INR APTT Sodium Potassium Chloride Carbon Dioxide Anion Gap BUN Creatinine Estim Creat Clear Calc Est GFR (MDRD) Af Amer Est GFR (MDRD) Non-Af BUN/Creatinine Ratio Glucose Hemoglobin A1c 13.3 H Serum Osmolality Lactic Acid 3.1 H Calcium Phosphorus Magnesium Total Bilirubin AST ALT Alkaline Phosphatase Total Creatine Kinase Troponin I C-React Prot Ext Range Total Protein Albumin Globulin Albumin/Globulin Ratio Urine Color Urine Clarity Urine pH Ur Specific [place] Urine Protein Urine Glucose (UA) Urine Ketones Urine Occult Blood Urine Nitrite Urine Bilirubin Urine Urobilinogen Ur Leukocyte Esterase Urine RBC Urine WBC Ur Squamous Epith Cells Urine Bacteria Urine Mucus S.aureus Protein A PCR MRSA (PCR) 05/10/19 05/10/19 05/10/19 05:10 05:20 05:20 WBC RBC Hgb Hct MCV MCH MCHC RDW Std Deviation RDW Coeff of Fatuma Plt Count MPV Immature Gran % (Auto) Neut % (Auto) Lymph % (Auto) [place] % (Auto) Eos % (Auto) Baso % (Auto) Absolute Neuts (auto) Absolute Lymphs (auto) Nucleated RBC % Differential Comment ESR PT INR APTT Sodium Potassium Chloride Carbon Dioxide Anion Gap BUN Creatinine Estim Creat Clear Calc Est GFR (MDRD) Af Amer Est GFR (MDRD) Non-Af BUN/Creatinine Ratio Glucose Hemoglobin A1c Serum Osmolality 323 H Lactic Acid Calcium Phosphorus 2.7 Magnesium 2.0 Total Bilirubin AST ALT Alkaline Phosphatase Total Creatine Kinase 4362 H Troponin I C-React Prot Ext Range 166.00 H Total Protein Albumin Globulin Albumin/Globulin Ratio Urine Color Urine Clarity Urine pH Ur Specific [place] Urine Protein Urine Glucose (UA) Urine Ketones Urine Occult Blood Urine Nitrite Urine Bilirubin Urine Urobilinogen Ur Leukocyte Esterase Urine RBC Urine WBC Ur Squamous Epith Cells Urine Bacteria Urine Mucus S.aureus Protein A PCR MRSA (PCR) 05/10/19 05/10/19 05/10/19 05:40 08:25 08:30 WBC RBC Hgb Hct MCV MCH MCHC RDW Std Deviation RDW Coeff of Fatuma Plt Count MPV Immature Gran % (Auto) Neut % (Auto) Lymph % (Auto) [place] % (Auto) Eos % (Auto) Baso % (Auto) Absolute Neuts (auto) Absolute Lymphs (auto) Nucleated RBC % Differential Comment ESR PT INR APTT Sodium Potassium Chloride Carbon Dioxide Anion Gap BUN Creatinine Estim Creat Clear Calc Est GFR (MDRD) Af Amer Est GFR (MDRD) Non-Af BUN/Creatinine Ratio Glucose Hemoglobin A1c Serum Osmolality Lactic Acid Calcium Phosphorus Magnesium Total Bilirubin AST ALT Alkaline Phosphatase Total Creatine Kinase Troponin I 0.410 H C-React Prot Ext Range Total Protein Albumin Globulin Albumin/Globulin Ratio Urine Color Straw Urine Clarity Clear Urine pH 6.5 Ur Specific [place] 1.010 Urine Protein Negative Urine Glucose (UA) 1000 H Urine Ketones 5 H Urine Occult Blood 150 H Urine Nitrite Negative Urine Bilirubin Negative Urine Urobilinogen Normal Ur Leukocyte Esterase Negative Urine RBC 0 SEEN Urine WBC 0 SEEN Ur Squamous Epith Cells 0 SEEN Urine Bacteria 0 SEEN Urine Mucus 0 SEEN S.aureus Protein A PCR Pending MRSA (PCR) Pending 05/10/19 05/10/19 09:40 11:14 WBC RBC Hgb Hct MCV MCH MCHC RDW Std Deviation RDW Coeff of Fatuma Plt Count MPV Immature Gran % (Auto) Neut % (Auto) Lymph % (Auto) [place] % (Auto) Eos % (Auto) Baso % (Auto) Absolute Neuts (auto) Absolute Lymphs (auto) Nucleated RBC % Differential Comment ESR PT INR APTT Sodium Potassium Chloride Carbon Dioxide Anion Gap BUN Creatinine Estim Creat Clear Calc Est GFR (MDRD) Af Amer Est GFR (MDRD) Non-Af BUN/Creatinine Ratio Glucose Hemoglobin A1c Serum Osmolality Lactic Acid 1.6 Calcium Phosphorus Magnesium Total Bilirubin AST ALT Alkaline Phosphatase Total Creatine Kinase Troponin I 0.341 H C-React Prot Ext Range Total Protein Albumin Globulin Albumin/Globulin Ratio Urine Color Urine Clarity Urine pH Ur Specific [place] Urine Protein Urine Glucose (UA) Urine Ketones Urine Occult Blood Urine Nitrite Urine Bilirubin Urine Urobilinogen Ur Leukocyte Esterase Urine RBC Urine WBC Ur Squamous Epith Cells Urine Bacteria Urine Mucus S.aureus Protein A PCR MRSA (PCR) - Other Studies Radiology: [] reviewed Other Studies: [] Route of nutrition/ use of supplements: [] Nutritional Intake: [] IV Site: [] Dyer Catheter: [] - Physical Exam General: Alert, Oriented x3, Cooperative, No apparent distress HEENT: Atraumatic, PERRLA, EOMI Neck: Supple, No Nodes Lungs: Normal air movement, Rales - R base Cardiovascular: Regular rate, Regular Rhythm, Murmur Abdomen: Soft, Non Tender, Non-Distended Extremities: Edema Skin: Ulcer/ Wound - shallow ulcers over extremities. L foot with necrosis, deep probe to bone. IV Site: Peripheral, without redness Musculoskeletal: No Tenderness to Palpation of Joints or Extremities Neurological: Cranial nerves II-XII grossly intact - Assessment/Plan Antibiotics: [] Assessment/Plan: [] Active and Suspected Problems Diabetic infection of left foot (Acute) 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 Cont empiric vanc/zosyn. Cxs and pcr pending. Will check TTE. With depth of involvement, I think he will need partial foot amputation. D/w Dr. Claudio. Will follow, thank you.
--- NOTE | 2019-05-10 12:57 | ECHOD_ITS ---
Version 2 Reason For Study: Murmur Procedure This was a 2D Doppler, Color Flow transthoracic echocardiogram. Exam performed portable in patient room. Left Ventricle Normal LV size. The estimated ejection fraction is 55 %. Stage 1 diastolic dysfunction. Infero- Basal: Hypokinetic. Basal inferoseptal: Hypokinetic. The rest of the wall segments are normal. Right Ventricle Normal RV size. Normal systolic function. Atria The left atrium is mildly enlarged. Normal right atrium. Mitral Valve Normal mitral valve. Tricuspid Valve Normal tricuspid valve. Aortic Valve Normal aortic valve. Pulmonic Valve Normal pulmonic valve. Great Vessels Normal aortic root. The pulmonary artery is normal size. Normal inferior vena cava. Pericardium/Pleural No pericardial effusion. MMode/2D Measurements & Calculations LVIDd: 4.3 cm IVSd: 0.89 cm LA dimension: 4.0 cm LVIDs: 2.8 cm LVPWd: 0.92 cm FS: 36.1 % LAV(MOD-bp): 66.8 ml LA A4 area: 21.4 cm2 RA A4 area: 20.0 cm2 LAV(MOD-bp) Indexed: 28.5 ml/m2 LAV(MOD-sp2): 71.0 ml LAV(MOD-sp4): 58.6 ml Time Measurements MV dec time: 0.28 sec Doppler Measurements & Calculations MV E max marcos: 70.2 cm/sec Lat Peak E' Marcos: 10.7 cm/sec Med Peak E' Marcos: 8.5 cm/sec MV A max marcos: 77.1 cm/sec E/E' lat: 6.6 E/E' med: 8.3 MV E/A: 0.91 MV V2 max: 92.9 cm/sec MV P1/2t max marcos: 83.8 cm/sec Ao V2 max: 136.3 cm/sec MV max P.4 mmHg MV P1/2t: 85.7 msec Ao max P.4 mmHg MV V2 mean: 53.9 cm/sec MV dec slope: 286.4 cm/sec2 MV mean P.4 mmHg MVA(P1/2t): 2.6 cm2 MV V2 VTI: 22.3 cm LV V1 max: 104.9 cm/sec PA V2 max: 89.6 cm/sec LV V1 max P.4 mmHg Interpretation Summary Normal LV size. The estimated ejection fraction is 55 %. Stage 1 diastolic dysfunction. Infero-Basal: Hypokinetic Basal inferoseptal: Hypokinetic The rest of the wall segments are normal. Structurally normal valves. Ordering Physician: Teo Pathak Referring Physician: NO PCP NOTED Performed By: Keny Tijerina RCS
[2019-05-10 13:16] LABS: Bedside Glucose 331 mg/dL (70-110)
[2019-05-10 13:30] LABS: Urine Chloride < 10 mmol/L (Not Establ.); Urine Sodium 12 mmol/L (Not Establ.)
[2019-05-10 14:41] LABS: M R Staph aureus DNA By PCR Negative (Negative); Probe Check PASS; Specimen Processing Control PASS; Staph aureus DNA By PCR NEGATIVE (Negative)
--- NOTE | 2019-05-10 15:17 | CASEMGMT ---
SW spoke with patient. Introduced self and role at [facility]. Patient confirmed he does not have Medicaid anymore. He said once he started to get disability he no longer qualified for Medicaid. He is aware he will likely need to go to SNF at d/c. SW completed Medicaid application with patient. He did give SW his sister's name and number as she may be able to help if information needs to go to S. Patient's sister- Marybeth Brown [phone] Kylah FRANZ MSW
[2019-05-10 15:38] LABS: Anion Gap 7 (5-15); BUN 10 mg/dL (7-18); BUN/Creat Ratio 19.4 RATIO (10-20); Calcium,Total 8.3 mg/dL (8.5-10.1); Chloride 107 mmol/L (98-107); Creatinine, Serum 0.52 mg/dL (0.70-1.30); EST Glomerular Filtration Rate 172 mL/min (>60); Est Glom Filt Rate - Afr Amer 208 mL/min (>60); Estimated Creatinine Clearance 164.32 ml/min; Glucose 286 mg/dL (74-106); Potassium 3.4 mmol/L (3.5-5.1); Sodium Level 137 mmol/L (136-145)
--- NOTE | 2019-05-10 16:30 | BON_PTH ---
PATIENT: GEN SIM LOC: [facility] U#:[id number] AGE/SX: 64/M ROOM: [facility] RE05/10/[address]: Dr. Rosales Aguilar MD : [id number] BED: 1 DIS: 05/21/2019 SPEC #: [id number] RECD: 05/11/19 15:17 STATUS: LEELA REQ #: [id number] SERAFIN: 05/10/19 16:[address]: Irene Claudio DEPT: SURGICAL PATHOLOGY RECD BY: Shakir Wellington ENTERED: 05/12/19 09:54 SP TYPE: Bone OTHR DR: DO Dr. Irene Simon, DPM MD Dr. Teo Driver MD No Primary Care Phys Tissues: A - Bone of foot, NOS B - Bone of foot, NOS Procedures: Decalcification bone/plaque Surgery Specimen Level III Comments: @ Ordering doctor for DEC edited from to @ noah KOHLI at 05/12/19 1018 @ Ordering doctor for SUIII edited from to @ by SEUN at 05/12/19 1018 @ Submitting doctor edited from to @ noah KOHLI at 05/12/19 1018 HEADER OPERATION: Left foot debridement of soft tissue and bone PRE-OP DIAGNOSIS: Diabetic infection of left foot TISSUE SUBMITTED: A - First and second metatarsals, B - Clearance fragment MICROSCOPIC DIAGNOSIS A. First and second metatarsals, left foot, amputations: Soft tissue with ulceration and associated acute and chronic inflammation and fibrin with purulent material consistent with ulcer and abscess formation. Bone with acute osteomyelitis. B. Bone, clearance fragment, biopsy: Bone with no evidence of acute osteomyelitis. SINA:werner 05/17/19 MICROSCOPIC DESCRIPTION Slides are reviewed. GROSS DESCRIPTION A - Received in fixative is one container labeled with the patient's name and designated first and second left metatarsals. The specimen consists of a portion of foot containing first and second toe measuring 8.5 x 6 x 6 cm. A focal area of ulceration is noted at the proximal portion of the great toe measuring 3 x 2 cm. Nails are also present. Focal areas of ulceration are also noted on the dorsal surface of the great toe and second toe measuring 3 x 2.5 cm. Also present in the container are multiple detached pieces of bone and soft tissue measuring in aggregate 7 x 6 x 3 cm. Director Ambulatory sections are submitted in six cassettes as follows: 1 & 2 - ulcerated area, 3-6 - Director Ambulatory sections from bone after decalcification. B - Received in fixative is one container labeled with the patient's name and designated clearance fragment. The specimen consists of a piece of bone measuring 1.2 x 0.4 x 0.2 cm. The entire specimen is submitted in one cassette after decalcification. / SJ:rg 05/12/19 TC: 2 CPT: 72095 x2; 68895 x2
[2019-05-10 16:46] LABS: Bedside Glucose 287 mg/dL (70-110)
--- NOTE | 2019-05-10 17:00 | RAD_ITS ---
HISTORY:LEFT FOOT PARTIAL AMPUTATION. LEFT FOOT PARTIAL AMPUTATION. COMPARISON: None FINDINGS: # of images incl. paperwork: 4 XR Foot Min 3 Views: Left BONE AND JOINTS: 3 intraoperative images demonstrate resection of the distal half of the first and second metatarsals and the first and second toes. SOFT TISSUES: Unremarkable. No radiopaque foreign body. RAD/Foot min 3 Views IMPRESSION: Resection of the distal half of the first and second metatarsals and first and second toes at 0042 Reported and signed by: Marcelina Bowles DO Electronically Signed: Marcelina Bowles DO at 23:41 EDT Tel , Service support ,
--- NOTE | 2019-05-10 18:57 | PCM.OPRPT ---
Problem List (1) Chronic ulcer of left foot with necrosis of bone Status: Chronic (2) Diabetic infection of left foot Status: Acute (3) Osteomyelitis of great toe of left foot Status: Chronic (4) Severe sepsis Status: Acute (5) Type 2 diabetes mellitus with diabetic polyneuropathy Status: Chronic Report of Operation Date of Procedure: 05/10/19 Pre-Operative Diagnosis: infection left foot with abscess, ulceration, and osteomyelitis Post-Operative Diagnosis: infection left foot with abscess, ulceration, and osteomyelitis Surgery/Procedure Performed:: debridement of non viable soft tissue and bone including up to an open first and second ray resection with additional incision and drainage to dorsal left foot Description of Surgical Findings:: hemostasis: well padded pneumatic left leg tourniquet; 250 mmHg, 19 minutes specimens sent findings: removal of necrotic and purulent tissue noted. hemostasis controlled complications: none specimens sent The patient tolerated the procedure and anesthesia well. He was transported to the pacu with vital signs stable and vascular status intact to the left lower extremity. He will be transferred back to the progressive care unit upon continued stability. Post operative x-rays were reviewed prior to leaving the operating room. Staged procedure is anticipated. Post operative orders were entered electronically. director operations broadcast: none - surgeon: Irene Claudio DPM Type of Anesthesia:: Local MAC - preop: 1:1 mix of 1% lidocaine plain and 0.5% marcaine plain administered in typical left ankle block fashion proximal to the infection level, 20 cc Specimen's removed: 1. soft tissue and bone left foot sent to pathology. 2. soft tissue and bone left foot sent to microbiology (aerobic, acid fast, fungal, anearobic). 3. clearance fragment soft tissue and bone left foot sent to pathology. 4. clearance fragment soft tissue and bone left foot sent to microbiology (aerobic, acid fast, fungal, anearobic) Drains: no Estimated Blood Loss (mL): < 200 mL Description of Procedure: Indications: This 64-year-old male with significant past medical history of diabetes with neuropathy, obstructive sleep apnea, hypertension, delayed wound healing of the left foot for approximately 1-1/2 years. He relates recent progressive worsening with discoloration and odor that has been exacerbated the last one to two weeks. He presented to the emergency room on April 29, 2019 in which she was started on oral clindamycin and left against medical advise. He returned earlier today due to progressive illness. He does have a palpable posterior tibial pulse 2 out of 4 and a weaker dorsalis pedis pulse of 1 out of 4 noted upon reassessment. He has edema and varicosities to the left lower extremity. He has a necrotic ulcer to the dorsal left foot that probes to bone and first and second metatarsal phalangeal joint and also communicates at the sub-first metatarsal head ulcer site. There is purulence on expression coming from the dorsal aspect of the foot with peripheral erythema. There is no streaking beyond the ankle lebel or other areas of bogginess or fluctuance. The preoperative x-rays do not demonstrate fractures, dislocations, or soft tissue emphysema adjacent to the ulcer site. The ulcer site does have air collection. There is some osseous destruction noted to the proximal phalanx of the hallux and there is concern for osteomyyelitis. The MRI demonstrates fluid abscess collection at the ulcer site of the dorsal foot and sub-first metatarsal head with adjacent bone marrow changes to the proximal phalanx of the hallux and first metatarsal bone consistent with osteomyelitis. Cultures were taken and are pending. He has severe elevation of white blood cell count of 23.4, elevated blood glucose level almost 900 mg/dL, hemoglobin A1c of over 13%, and evidence of kidney injury. He is septic. Infectious disease on consultation and he has been started on vancomycin and Zosyn. Urinalysis and wound cultures are also pending. Blood cultures were also obtained and are pending. He appears to have adequate perfusion for healing per his non invasive vascular studies however abnormalities are noted. His studies did demonstrate noncompressible vessels at the ankle level with triphasic waveforms. A vascular consult will additionally be considered due to his noted delayed healing of this site for over a year. He is at high risk for limb and life loss due to this condition and I recommend urgent surgical intervention. The preoperative indications, planned procedure, possible benefits, risk, complications, and anticipated healing time management were discussed in detail the patient. He understands and elects to proceed with surgery at this time. No guarantees were made. He understands complications and risks include but are not limited to the following: pain, swelling, scarring, delayed or nonhealing, continued infection, loss of limb, function, life, blood clot, allergic reaction, chronic pain, and need for further surgeries. This is a planned staged procedure. No guarantees were made. The informed surgical consent and limb were signed. I answered all his questions. Preoperative optimization was assisted with the hospitalist physician. Procedure detail: The patient was transported to the operating room via cart and placed on the operating table in the supine position. Final verification of patient, surgery, limb designation was performed via the timeout procedure. A well-padded pneumatic left mid calf tourniquet was placed. He is already receiving IV antibiotics on the medical floor including vancomycin and Zosyn. MAC anesthesia was initially by the anesthesia team. I administered the local anesthetic as noted proximal to the cellulitis area. The left lower extremity was prepped and draped in the usual aseptic manner. [place] exsanguination was performed and the tourniquet was inflated at this time. Attention was first directed to the dorsal medial forefoot which a 15 blade was used to excise the non viable fibrous and necrotic purulent plug from the dorsal aspect of the foot. Devitalized tissue was removed including the first and second toe and plantar metatarsal region. This was removed from the table and total and was not considered clinically salvageable. Next the metatarsals 1 and 2 were reflected from adjacent soft tissue and a sagittal saw was used to resect devitalized discolored and maloney bone. This was all sent to microbiology and pathology as noted. This was copiously irrigated with normal saline. A clean rongeur was used to remove devitalized soft tissue including tendon and subcutaneous tissue. Initial purulent collection was noted to the dorsal lateral left foot in which a curvilinear incision extending approximately 2 inches was performed to the skin. Blunt dissection was performed down to the tendon sheath layer and this was irrigated and cleaned with a rongeur as well. After the debridement irrigation of devitalized soft tissue and bone, no purulence or additional necrosis or odor were noted. Tourniquet was deflated at this time and capillary refill time of less than 3 seconds noted to digits 3, 4, 5 of the left foot. Electrocauterization and pressure was utilized to control hemostasis. No pulsatile bleeding was noted. The remaining ulcer site measured approximately 7 cm x 7 cm with a depth of 1.5 cm with exposed bone tendon and subcutaneous tissue. After saline irrigation, a clean rongeur was used to obtain clearance fragment from the first metatarsal and this was sent to microbiology and pathology as noted. Postoperative x-ray was obtained including 3 views of the left foot (AP, oblique, and lateral) with adequate resection of the first and second rays. No acute injuries or further proximal soft tissue emphysema or foreign body were identified. A postoperative dressing consisting of Betadine soaked gauze, abdominal pads, Kerlix, Angus wrap were applied. After procedure: The patient tolerated the procedure and anesthesia well. He was transported to PACU with vital signs stable and vascular status intact to the left lower extremity. He was advised to remain nonweightbearing to left lower extremity. He was advised to elevate for pain and inflammation management. He will be transferred back to the regular progressive care unit upon continued stability. This is a limb salvage attempt and this is likely a staged procedure. The tentative plan is to return after the tissue demarcates and I am hopeful for transmetatarsal amputation (open versus closed). I will recommend a vascular surgery consultation due to this vessel calcification and previously reported delayed healing of over one year. To continue on IV antibiotics per infectious disease. Multiple cultures are pending. Lab trends will continued to be followed. The following surgical plan and timing of the surgery is pending response to infection management, tissue demarcation, and ultimate vascular perfusion. Postoperative orders were entered electronically. I will continue to follow him closely while in house. Irene Claudio DPM, [facility] - Complications none - Admit VTE Documentation VTE Present on Admission: No VTE Mechan Device Prophylaxis: SCD's VTE Pharm Prophylaxis ordered?: Yes
[2019-05-10 19:16] LABS: Bedside Glucose 226 mg/dL (70-110)
[2019-05-10] MEDS: MELATONIN 3 MG TABLET PO (22:52)
[2019-05-10] MEDS: oxyCODONE 5 MG Tablet 10 MG PO (22:52)
[2019-05-10 23:31] LABS: Bedside Glucose 234 mg/dL (70-110)
[2019-05-11] VITALS (15 sets, daily range): BP systolic 118–149; BP diastolic 62–82; PULSE 77–91; RESP 16–18; TEMP 36.5–37.7; O2SAT 91–96; BMI 743.0; BMI 32.3
[2019-05-11] MEDS: Insulin Lispro 100 UNIT/ML INSULN.PEN SC ×4 (06:34→21:23)
[2019-05-11 06:46] LABS: Bedside Glucose 232 mg/dL (70-110)
[2019-05-11 07:07] LABS: Absolute Lymphocyte Count 1.62 X10^3/uL (0.83-4.51); Absolute Neutrophil Count 11.7 X10^3/uL (2.0-7.7); Basophil# 0.08 X10^3/uL; Basophil% 0.5 % (0-1); Eosinophil# 0.14 X10^3/uL; Hematocrit 41.7 % (40-54); Hemoglobin 13.5 g/dL (13.0-16.5); Lymphocyte # 1.62 X10^3/ul (4.0); Lymphocyte % 11.1 % (19-41); Mean Corp Hgb Conc 32.4 g/dL (32-36); Mean Corpuscular Hgb 30.9 pg (27.0-32.0); Mean Corpuscular Volume 95.4 fL (80-94); Mean Platelet Vol. 10.5 fl (6.2-12.0); Monocyte# 0.98 X10^3/uL; Monocyte% 6.7 % (0-10); NRBC Flagged by Analyzer 0 % (0-5); Neutrophil # 11.71 X10^3/uL (2.7-7.7); Neutrophil % 79.9 % (47-70); Platelet Count 297 K/mm3 (150-450); RBC Distribution Width CV 12.6 % (11.6-14.6); RBC Distribution Width SD 44.4 fl (35.1-43.9); Red Blood Count 4.37 M/mm3 (4.6-6.2); White Blood Count 14.6 K/mm3 (4.4-11.0)
[2019-05-11 07:42] LABS: Anion Gap 11 (5-15); BUN 16 mg/dL (7-18); BUN/Creat Ratio 13.8 RATIO (10-20); CPK Total, Creatine Kinase 2608 U/L (39-308); Calcium,Total 7.9 mg/dL (8.5-10.1); Chloride 108 mmol/L (98-107); Cholesterol 69 mg/dL (200); Creatinine, Serum 1.16 mg/dL (0.70-1.30); EST Glomerular Filtration Rate 68 mL/min (>60); Est Glom Filt Rate - Afr Amer 82 mL/min (>60); Estimated Creatinine Clearance 73.66 ml/min; Glucose 212 mg/dL (74-106); High Density Lipoprotein 43 mg/dL; Magnesium 1.8 mg/dL (1.6-2.6); Phosphorus 3.3 mg/dL (2.5-4.9); Potassium 4.1 mmol/L (3.5-5.1); Sodium Level 139 mmol/L (136-145); Triglycerides 67 mg/dL; Very Low Density Lipoprotein 13 mg/dL (5-40)
--- NOTE | 2019-05-11 08:14 | PN_ITS ---
Patient Problems: Active and Suspected Problems Diabetic infection of left foot (Acute) DEAN (acute kidney injury) (Acute) Severe sepsis (Acute) Elevated troponin (Acute) Dehydration (Acute) Diabetic hyperosmolar non-ketotic state (Acute) Peripheral vascular disease (Suspected) Subjective: Postoperative day #1 Antibiotic day #2-vancomycin and Zosyn All events of the past 24 hours of been reviewed. Patient was taken to surgery last evening by Dr. Claudio and had debridement of nonviable soft tissue and bone including up to an open first and second ray resection with additional incision and drainage of dorsal left foot. Arterial studies of the lower extremity showed triphasic Doppler waveforms at the ankle level bilaterally. Resting ankle-brachial indices were normal bilaterally. The left digital brachial index could not be determined due to non-compressibility of the vasculature at digital level. Radial flow appeared to be normal to ankle level bilaterally. Echocardiogram showed no evidence of endocarditis and the ejection fraction was normal at 55% with stage I diastolic dysfunction. There is inferobasal hypo kinesis possibly secondary to old myocardial infarction. He has not had a stress test in many years. Afebrile since admission Vital signs are stable. Pulse ox on room air is 94 to 95% today. Fluid balance since admission is +[phone]. Urine output on 05/10/2019 was 2450. All lab was personally reviewed. White blood cell count today is 14.6, down from 23.4 at admission. He has 80% neutrophils. ESR was 102. CRP was 166. Potassium is 4.1 following supplementation. Serum bicarb is mildly decreased at 20. Creatinine has increased from 0.52-1.16. The CK is down to 2608 from 4362 at admission. LDL is 13 and the HDL is 43. Phosphorus and magnesium are normal. 2 of 2 blood cultures are positive for gram-positive cocci in chains. The blood sugar record was reviewed. Blood sugars are now in the low 200s. Pain is adequately controlled. He denies chest pain, shortness of breath, nausea, vomiting. He denies any cravings for cigarettes since he is on the nicotine patch. I reviewed Dr. Claudio's note and she is planning on possible transmetatarsal amputation after the wound demarcates. I reviewed Dr. Pathak's note today and will continue vancomycin and Zosyn until final cultures are available. Objective: PHYSICAL EXAM: GENERAL: alert, oriented X 3, Cooperative, NAD, looks better today with better color in his face, more alert ORAL: moist mucosa, no mucosal lesions NECK: No JVD, supple, trachea midline LUNGS: CTA, symmetric chest expansion, diminished, no wheezes, rhonchi or rales, not tachypneic HEART: RRR, Normal S1 and S2, no rub, no gallop, telemetry -normal sinus rhythm with one ventricular couplet ABDOMEN: soft, NT, ND, BS present, no guarding with palpation, obese EXTREMITIES: no edema, no cyanosis, no calf tenderness SKIN: No rashes, the abrasions on the knees, elbows, face are all stable with no evidence infection NEUROLOGIC: no focal neurologic deficits PSYCH: appropriate, normal affect, pleasant The wound was examined by Dr. Claudio - please see her dictation for description of the wound - Physical Exam Vital Signs Temp Pulse Resp BP Pulse Ox 98.0 F 90 18 135/70 H 94 05/11/19 07:50 05/11/19 07:50 05/11/19 07:50 05/11/19 07:50 05/11/19 07:50 Oxygen Delivery Method Room Air Weight: 244 lb 7.882 oz Body Mass Index (BMI) 32.2 Finger Stick Blood Glucose 600 Intake and Output for Last 24 Hours 05/09/19 05/10/19 05/11/19 23:59 23:59 23:59 Intake Total 6209.4 / 6209.4 1934.69 / 1934.69 Output Total 2450 / 2450 300 / 300 Balance 3759.4 / 3759.4 1634.69 / 1634.69 Microbiology Past 72 Hours 05/10/19 05:20 Blood Culture - Preliminary Blood Culture (Wb) - Left Forearm 05/10/19 05:17 Blood Culture - Preliminary Blood Culture (Wb) - Right Forearm 05/10/19 05:40 Gram Stain - Final Wound Abcess - Left Foot Laboratory Tests Past 24 Hrs 05/10/19 05/10/19 05/10/19 05:10 05:10 05:10 WBC RBC Hgb Hct MCV MCH MCHC RDW Std Deviation RDW Coeff of Fatuma Plt Count MPV Immature Gran % (Auto) Neut % (Auto) Lymph % (Auto) [place] % (Auto) Eos % (Auto) Baso % (Auto) Absolute Neuts (auto) Absolute Lymphs (auto) Nucleated RBC % ESR 102 H Sodium Potassium Chloride Carbon Dioxide Anion Gap BUN Creatinine Estim Creat Clear Calc Est GFR (MDRD) Af Amer Est GFR (MDRD) Non-Af BUN/Creatinine Ratio Glucose Hemoglobin A1c 13.3 H Lactic Acid Calcium Phosphorus 2.7 Magnesium 2.0 Total Creatine Kinase Troponin I C-React Prot Ext Range 166.00 H Triglycerides Cholesterol LDL Cholesterol VLDL Cholesterol HDL Cholesterol Ur Random Sodium Urine Creatinine Urine Potassium Urine Chloride S.aureus Protein A PCR MRSA (PCR) 05/10/19 05/10/19 05/10/19 05:40 05:40 08:25 WBC RBC Hgb Hct MCV MCH MCHC RDW Std Deviation RDW Coeff of Fatuma Plt Count MPV Immature Gran % (Auto) Neut % (Auto) Lymph % (Auto) [place] % (Auto) Eos % (Auto) Baso % (Auto) Absolute Neuts (auto) Absolute Lymphs (auto) Nucleated RBC % ESR Sodium Potassium Chloride Carbon Dioxide Anion Gap BUN Creatinine Estim Creat Clear Calc Est GFR (MDRD) Af Amer Est GFR (MDRD) Non-Af BUN/Creatinine Ratio Glucose Hemoglobin A1c Lactic Acid Calcium Phosphorus Magnesium Total Creatine Kinase Troponin I C-React Prot Ext Range Triglycerides Cholesterol LDL Cholesterol VLDL Cholesterol HDL Cholesterol Ur Random Sodium 12 Urine Creatinine 17.70 Urine Potassium 11.0 Urine Chloride < 10 S.aureus Protein A PCR NEGATIVE MRSA (PCR) Negative 05/10/19 05/10/19 05/10/19 08:30 09:40 11:14 WBC RBC Hgb Hct MCV MCH MCHC RDW Std Deviation RDW Coeff of Fatuma Plt Count MPV Immature Gran % (Auto) Neut % (Auto) Lymph % (Auto) [place] % (Auto) Eos % (Auto) Baso % (Auto) Absolute Neuts (auto) Absolute Lymphs (auto) Nucleated RBC % ESR Sodium Potassium Chloride Carbon Dioxide Anion Gap BUN Creatinine Estim Creat Clear Calc Est GFR (MDRD) Af Amer Est GFR (MDRD) Non-Af BUN/Creatinine Ratio Glucose Hemoglobin A1c Lactic Acid 1.6 Calcium Phosphorus Magnesium Total Creatine Kinase Troponin I 0.410 H 0.341 H C-React Prot Ext Range Triglycerides Cholesterol LDL Cholesterol VLDL Cholesterol HDL Cholesterol Ur Random Sodium Urine Creatinine Urine Potassium Urine Chloride S.aureus Protein A PCR MRSA (PCR) 05/10/19 05/11/19 05/11/19 14:55 06:08 06:08 WBC 14.6 H RBC 4.37 L Hgb 13.5 Hct 41.7 MCV 95.4 H MCH 30.9 MCHC 32.4 RDW Std Deviation 44.4 H RDW Coeff of Fatuma 12.6 Plt Count 297 MPV 10.5 Immature Gran % (Auto) 0.800 Neut % (Auto) 79.9 H Lymph % (Auto) 11.1 L Stark % (Auto) 6.7 Eos % (Auto) 1.0 Baso % (Auto) 0.5 Absolute Neuts (auto) 11.7 H Absolute Lymphs (auto) 1.62 Nucleated RBC % 0 ESR Sodium 137 139 Potassium 3.4 L 4.1 Chloride 107 108 H Carbon Dioxide 23.0 20.0 L Anion Gap 7 11 BUN 10 16 Creatinine 0.52 L 1.16 Estim Creat Clear Calc 164.32 73.66 Est GFR (MDRD) Af Amer 208 82 Est GFR (MDRD) Non-Af 172 68 BUN/Creatinine Ratio 19.4 13.8 Glucose 286 H 212 H Hemoglobin A1c Lactic Acid Calcium 8.3 L 7.9 L Phosphorus 3.3 Magnesium 1.8 Total Creatine Kinase 2608 H Troponin I C-React Prot Ext Range Triglycerides 67 Cholesterol 69 LDL Cholesterol 13 VLDL Cholesterol 13 HDL Cholesterol 43 Ur Random Sodium Urine Creatinine Urine Potassium Urine Chloride S.aureus Protein A PCR MRSA (PCR) POC Glucose 05/11/19 05/10/19 05/10/19 06:32 22:47 19:08 POC Glucose 232 H 234 H 226 H 05/10/19 05/10/19 16:37 11:17 POC Glucose 287 H 331 H Medical Necessity - Tobacco Use Smoking Status: Current every day smoker Tobacco Use: Cigarettes Assessment/Plan All Active Problems Diabetic infection of left foot (Acute) DEAN (acute kidney injury) (Acute) Severe sepsis (Acute) Elevated troponin (Acute) Dehydration (Acute) Diabetic hyperosmolar non-ketotic state (Acute) Postoperative day #1 Day #2 Zosyn and vancomycin Impressions 1. severe sepsis due to diabetic foot infection with ARF and bacteremia in 2/2 BC's with GM + cocci in chains 2. Diabetic hyperosmolar non-ketotic state -resolved 3. DM II - uncontrolled. Hemoglobin A1c is 13.3. 4. ARF - likely pre-renal. The fractional excretion of sodium is less than 1%. 5. Diabetic foot infection with necrosis and osteomyelitis 6. Dehydration 7. Diabetic peripheral polyneuropathy 8. Tobacco dependence 9. ANT-noncompliant with CPAP 10. Abrasions to both knees, chin, nose and forehead 11. Hypertension 12. Hypokalemia 13. Rhabdomyolysis 14. NSTEMI - more likely than not Type II due to demand ischemia related to severe sepsis 15. Stage I diastolic dysfunction with inferobasal hypokinesis 16. hyponatremia-resolved Adjust the insulin Add Brett BID, Vitamin C and zinc to aid in wound healing Continue the IV at 175 recheck lab in the AM The arterial studies have triphasic flow to the ankle BL. THe digital brachial index on the left can not be done due to the vessels being non-compressible more likely than not from calcification of the arteries. Vascular intervention is likely not going to be indicated for this small vessel disease but, vascular consult recommended by podiatry so will ask Dr. Heller to see the pt in the AM. Code Visit Inpatient E&M: 89335 Subs Hosp L3
[2019-05-11] MEDS: Lisinopril 10 MG Tablet PO (09:00)
[2019-05-11] MEDS: Docusate Sodium 100 MG Capsule PO ×2 (09:00→21:22)
[2019-05-11] MEDS: Famotidine 20 MG Tablet PO ×2 (09:00→21:24)
[2019-05-11] MEDS: Calcium (Elemental) 500 MG Tablet PO (09:00)
[2019-05-11] MEDS: Multivitamins,Therapeutic Tablet 1 TABLET PO (09:00)
[2019-05-11] MEDS: 0.9% NaCl Peripheral Flush Adult/Peds IV ×2 (09:01→18:27)
--- NOTE | 2019-05-11 09:27 | PN.ID_ITS ---
Patient Problems: Active and Suspected Problems Diabetic infection of left foot (Acute) DEAN (acute kidney injury) (Acute) Severe sepsis (Acute) Elevated troponin (Acute) Dehydration (Acute) Diabetic hyperosmolar non-ketotic state (Acute) Peripheral vascular disease (Suspected) Subjective: Foot is sore, no fever, no n/v/d. - Physical Exam General: Alert, Cooperative, No apparent distress Lungs: Clear to auscultation Cardiovascular: Regular rate, Regular Rhythm Abdomen: Soft, Non Tender, Non-Distended Skin: Ulcer/ Wound - L foot wrapped Vital Signs Temp Pulse Resp BP Pulse Ox 98.0 F 90 18 135/70 H 94 05/11/19 07:50 05/11/19 07:50 05/11/19 07:50 05/11/19 07:50 05/11/19 07:50 Oxygen Delivery Method Room Air Weight: 110.9 kg Body Mass Index (BMI) 32.2 Finger Stick Blood Glucose 600 Intake and Output for Last 24 Hours 05/09/19 05/10/19 05/11/19 23:59 23:59 23:59 Intake Total 6209.4 / 6209.4 2318.86 / 2318.86 Output Total 2450 / 2450 300 / 300 Balance 3759.4 / 3759.4 Microbiology Past 72 Hours 05/10/19 05:17 Blood Culture - Preliminary Blood Culture (Wb) - Right Forearm 05/10/19 05:20 Blood Culture - Preliminary Blood Culture (Wb) - Left Forearm 05/10/19 05:40 Gram Stain - Final Wound Abcess - Left Foot Laboratory Tests Past 24 Hrs 05/10/19 05/10/19 05/10/19 05:40 05:40 08:25 WBC RBC Hgb Hct MCV MCH MCHC RDW Std Deviation RDW Coeff of Fatuma Plt Count MPV Immature Gran % (Auto) Neut % (Auto) Lymph % (Auto) [place] % (Auto) Eos % (Auto) Baso % (Auto) Absolute Neuts (auto) Absolute Lymphs (auto) Nucleated RBC % Sodium Potassium Chloride Carbon Dioxide Anion Gap BUN Creatinine Estim Creat Clear Calc Est GFR (MDRD) Af Amer Est GFR (MDRD) Non-Af BUN/Creatinine Ratio Glucose Lactic Acid Calcium Phosphorus Magnesium Total Creatine Kinase Troponin I Triglycerides Cholesterol LDL Cholesterol VLDL Cholesterol HDL Cholesterol Ur Random Sodium 12 Urine Creatinine 17.70 Urine Potassium 11.0 Urine Chloride < 10 S.aureus Protein A PCR NEGATIVE MRSA (PCR) Negative 05/10/19 05/10/19 05/10/19 09:40 11:14 14:55 WBC RBC Hgb Hct MCV MCH MCHC RDW Std Deviation RDW Coeff of Fatuma Plt Count MPV Immature Gran % (Auto) Neut % (Auto) Lymph % (Auto) [place] % (Auto) Eos % (Auto) Baso % (Auto) Absolute Neuts (auto) Absolute Lymphs (auto) Nucleated RBC % Sodium 137 Potassium 3.4 L Chloride 107 Carbon Dioxide 23.0 Anion Gap 7 BUN 10 Creatinine 0.52 L Estim Creat Clear Calc 164.32 Est GFR (MDRD) Af Amer 208 Est GFR (MDRD) Non-Af 172 BUN/Creatinine Ratio 19.4 Glucose 286 H Lactic Acid 1.6 Calcium 8.3 L Phosphorus Magnesium Total Creatine Kinase Troponin I 0.341 H Triglycerides Cholesterol LDL Cholesterol VLDL Cholesterol HDL Cholesterol Ur Random Sodium Urine Creatinine Urine Potassium Urine Chloride S.aureus Protein A PCR MRSA (PCR) 05/11/19 05/11/19 06:08 06:08 WBC 14.6 H RBC 4.37 L Hgb 13.5 Hct 41.7 MCV 95.4 H MCH 30.9 MCHC 32.4 RDW Std Deviation 44.4 H RDW Coeff of Fatuma 12.6 Plt Count 297 MPV 10.5 Immature Gran % (Auto) 0.800 Neut % (Auto) 79.9 H Lymph % (Auto) 11.1 L [place] % (Auto) 6.7 Eos % (Auto) 1.0 Baso % (Auto) 0.5 Absolute Neuts (auto) 11.7 H Absolute Lymphs (auto) 1.62 Nucleated RBC % 0 Sodium 139 Potassium 4.1 Chloride 108 H Carbon Dioxide 20.0 L Anion Gap 11 BUN 16 Creatinine 1.16 Estim Creat Clear Calc 73.66 Est GFR (MDRD) Af Amer 82 Est GFR (MDRD) Non-Af 68 BUN/Creatinine Ratio 13.8 Glucose 212 H Lactic Acid Calcium 7.9 L Phosphorus 3.3 Magnesium 1.8 Total Creatine Kinase 2608 H Troponin I Triglycerides 67 Cholesterol 69 LDL Cholesterol 13 VLDL Cholesterol 13 HDL Cholesterol 43 Ur Random Sodium Urine Creatinine Urine Potassium Urine Chloride S.aureus Protein A PCR MRSA (PCR) POC Glucose 05/11/19 05/10/19 05/10/19 06:32 22:47 19:08 POC Glucose 232 H 234 H 226 H 05/10/19 05/10/19 16:37 11:17 POC Glucose 287 H 331 H Medical Necessity - Tobacco Use Smoking Status: Current every day smoker Tobacco Use: Cigarettes Route of nutrition/ use of supplements: [] Nutritional Intake: [] IV Site: [] Dyer Catheter: [] - Assessment/Plan Antibiotics: [] Assessment/Plan: [] Active and Suspected Problems Diabetic infection of left foot (Acute) 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 Cont empiric vanc/zosyn. Staph aureus pcr was neg from foot. Bcx x2 showing strep-like bacteremia. TTE with no veg seen. Wbc, Cr, and lactate improved. No fever. Now s/p I&D 05/[address] Claudio. Will follow
[2019-05-11] MEDS: oxyCODONE 5 MG Tablet 10 MG PO ×2 (11:04→16:36)
[2019-05-11 11:40] LABS: Urine Sodium 32 mmol/L (Not Establ.)
[2019-05-11 11:51] LABS: Bedside Glucose 300 mg/dL (70-110)
--- NOTE | 2019-05-11 16:05 | CASEMGMT ---
ROBBIN spoke with patient earlier this am. ROBBIN gave him a list of [facility] nursing homes. ROBBIN explained to him that he will have to pick several options as it is difficult to get an accepting facility when a patient is coming on pending Medicaid. ROBBIN explained to him that when he leaves the hospital we won't know if he officially qualifies for Medicaid. Therefore, there is a chance he may not and he would be responsible for the [place] [facility] [place] bill. ROBBIN told him to look over the list and SW will fax his Medicaid application to [facility]. ROBBIN called Carmen at [facility] and the [facility] [place] [facility] [place] $2,313 per month. Any patients over this amount will have to establish a Qualified Income Trust at a local [employer]. The amount patient's income is over above number ($[id number]) will have to go into this Qualified Income Trust. Patient is over this amount so SW will have to explain this to patient and see if his sister is willing to help patient set this up. Kylah FRANZ MSW
[2019-05-11 16:51] LABS: Bedside Glucose 353 mg/dL (70-110)
--- NOTE | 2019-05-11 17:07 | PCM.PROGNOTE ---
Patient Problems: Active and Suspected Problems Diabetic infection of left foot (Acute) DEAN (acute kidney injury) (Acute) Severe sepsis (Acute) Elevated troponin (Acute) Dehydration (Acute) Diabetic hyperosmolar non-ketotic state (Acute) Peripheral vascular disease (Suspected) Subjective: This 64 year old male with multiple comorbidities was seen bedside left foot s/p debridement of non viable soft tissue and bone including first and second ray resections. He denies fever, chills, nausea, vomiting, urinary retention, or loss of appetite today. He rates his pain as a 5/10. - Physical Exam General: Alert, Oriented x3, Cooperative HEENT: Atraumatic Extremities: No cyanosis, Capillary Refill Less than 3 Seconds - to digits 3,4,5 left and peripheral to the open amputation site, No Calf Tenderness - negative agustina and stafford signs bilateral, Diminished Peripheral Pulses - palpable pt pulse noted and faint dp pulse, Edema - decreased left lower extremity Skin: Ulcer/ Wound - no purulence on expression. odor resolved. the open amputation/debridement site has fibrous, granular tissue with devitalized and some healthy tissue. there is no alfred eschar noted. no streaking noted. the peripheral skin is hairless and atrophic. there is no bogginess or fluctuance on palpation. the incision that extends to the dorsal lateral foot is also free of purulence on expression Musculoskeletal: No Tenderness to Palpation of Joints or Extremities, Muscle Wasting, - - amputation/debridement noted Neurological: - - lack of normal epicritic sensation via light touch consistent with neuropathy left lower extremity Psych/Mental Status: Normal Affect, Appropriate Vital Signs Temp Pulse Resp BP Pulse Ox 98.5 F 84 16 118/62 96 05/11/19 14:00 05/11/19 15:00 05/11/19 14:00 05/11/19 14:00 05/11/19 14:00 Oxygen Delivery Method Room Air Weight: 110.9 kg Body Mass Index (BMI) 32.2 Finger Stick Blood Glucose 600 Intake and Output for Last 24 Hours 05/09/19 05/10/19 05/11/19 23:59 23:59 23:59 Intake Total 6209.4 / 6209.4 4132.90 / 4132.90 Output Total 2450 / 2450 500 / 500 Balance 3759.4 / 3759.4 3632.90 / 3632.90 Microbiology Past 72 Hours 05/10/19 19:11 Gram Stain - Final Biopsy - Other Wound Culture - Preliminary Gram positive organism 05/10/19 19:11 Gram Stain - Final Tissue - Other Wound Culture - Preliminary Gram positive organism Alpha hemolytic organism 05/10/19 05:40 Gram Stain - Final Wound Abcess - Left Foot Wound Culture - Preliminary GNR lactose equipment man Alpha hemolytic organism 05/10/19 05:40 Urine Culture - Final Urine, Clean Catch Mixed Gram Pos & Gram Neg Org 05/10/19 05:17 Blood Culture - Preliminary Blood Culture (Wb) - Right Forearm 05/10/19 05:20 Blood Culture - Preliminary Blood Culture (Wb) - Left Forearm Laboratory Tests Past 24 Hrs 05/11/19 05/11/19 05/11/19 06:08 06:08 10:35 WBC 14.6 H RBC 4.37 L Hgb 13.5 Hct 41.7 MCV 95.4 H MCH 30.9 MCHC 32.4 RDW Std Deviation 44.4 H RDW Coeff of Fatuma 12.6 Plt Count 297 MPV 10.5 Immature Gran % (Auto) 0.800 Neut % (Auto) 79.9 H Lymph % (Auto) 11.1 L [place] % (Auto) 6.7 Eos % (Auto) 1.0 Baso % (Auto) 0.5 Absolute Neuts (auto) 11.7 H Absolute Lymphs (auto) 1.62 Nucleated RBC % 0 Sodium 139 Potassium 4.1 Chloride 108 H Carbon Dioxide 20.0 L Anion Gap 11 BUN 16 Creatinine 1.16 Estim Creat Clear Calc 73.66 Est GFR (MDRD) Af Amer 82 Est GFR (MDRD) Non-Af 68 BUN/Creatinine Ratio 13.8 Glucose 212 H Calcium 7.9 L Phosphorus 3.3 Magnesium 1.8 Total Creatine Kinase 2608 H Triglycerides 67 Cholesterol 69 LDL Cholesterol 13 VLDL Cholesterol 13 HDL Cholesterol 43 Ur Random Sodium Urine Creatinine 71.60 05/11/19 10:35 WBC RBC Hgb Hct MCV MCH MCHC RDW Std Deviation RDW Coeff of Fatuma Plt Count MPV Immature Gran % (Auto) Neut % (Auto) Lymph % (Auto) [place] % (Auto) Eos % (Auto) Baso % (Auto) Absolute Neuts (auto) Absolute Lymphs (auto) Nucleated RBC % Sodium Potassium Chloride Carbon Dioxide Anion Gap BUN Creatinine Estim Creat Clear Calc Est GFR (MDRD) Af Amer Est GFR (MDRD) Non-Af BUN/Creatinine Ratio Glucose Calcium Phosphorus Magnesium Total Creatine Kinase Triglycerides Cholesterol LDL Cholesterol VLDL Cholesterol HDL Cholesterol Ur Random Sodium 32 Urine Creatinine POC Glucose 05/11/19 05/11/19 05/11/19 16:39 11:37 06:32 POC Glucose 353 H 300 H 232 H 05/10/19 05/10/19 22:47 19:08 POC Glucose 234 H 226 H Medical Necessity - Tobacco Use Smoking Status: Current every day smoker Tobacco Use: Cigarettes Assessment/Plan All Active Problems Diabetic infection of left foot (Acute) DEAN (acute kidney injury) (Acute) Severe sepsis (Acute) Elevated troponin (Acute) Dehydration (Acute) Diabetic hyperosmolar non-ketotic state (Acute) Left diabetic foot infection with associated severe sepsis and osteomyelitis now s/p left soft tissue and bone debridement including open first and second ray resection Uncontrolled diabetes with neuropathy Malnutrition suspected Peripheral vascular disease suspected Lower extremity edema Other comorbidities I reviewed and discussed his case. I also reviewed his diagnostic data. It is noted his white blood cell count was 23.4 and is decreased to 14.6 today. He had a low grade fever earlier and his vitals are stable otherwise. His cultures from surgery is in process. It is noted he has bacteremia. He was started on IV vancomycin and Zosyn per infectious disease recommendations; this will be altered pending culture results. Clinically, the infection status is stabilizing to the foot now that he is s/p. This will be monitored close for complete infection resolution and tissue demarcation to determine the level of limb salvage. He understands a transmetatarsal amputation is likely after the tissues demarcates. I also recommend a vascular referral to get established due to his evidence of limb calcification and h/o extended delayed healing of the foot ulcer. The consult will be placed for tomorrow and is appreciated. He understands recommendations may range from additional testing, intervention, or clinical monitoring. Hemostasis is controlled; it is ok to resume enoxaparin. Medical management and DVT prophylaxis per primary team is appreciated. I will continue to follow him close while in house. Please do not hesitate to call if you have any questions. Irene Claudio DPM, [facility] [phone]
[2019-05-11] MEDS: Morphine 4 MG/ML Syringe IV (18:28)
[2019-05-11 18:46] LABS: Vancomycin, Trough Level 14.8 ug/mL (5.0-15.0)
[2019-05-11 18:57] LABS: Anion Gap 8 (5-15); BUN 25 mg/dL (7-18); BUN/Creat Ratio 12.4 RATIO (10-20); Calcium,Total 7.6 mg/dL (8.5-10.1); Chloride 106 mmol/L (98-107); Creatinine, Serum 2.01 mg/dL (0.70-1.30); EST Glomerular Filtration Rate 36 mL/min (>60); Est Glom Filt Rate - Afr Amer 43 mL/min (>60); Estimated Creatinine Clearance 42.51 ml/min; Glucose 349 mg/dL (74-106); Potassium 5.3 mmol/L (3.5-5.1); Sodium Level 133 mmol/L (136-145)
[2019-05-11 19:27] LABS: CPK Total, Creatine Kinase 3085 U/L (39-308)
--- NOTE | 2019-05-11 19:38 | PCM.RX.CS ---
Consult Pharmacy has been consulted to manage selected antiobiotic: Vancomycin Type of Consult: Follow-up Suspected Infection: Sepsis, Osteomyelitis Prior Doses of Antibiotics Received/Current Regimen: Currently on 1500mg IV q12h Labs: Sodium 133 mmol/L (136-145) L 05/11/19 17:25 Potassium 5.3 mmol/L (3.5-5.1) H 05/11/19 17:25 Chloride 106 mmol/L (98-107) 05/11/19 17:25 Carbon Dioxide 19.0 mmol/L (21.0-32.0) L 05/11/19 17:25 8 (5-15) 05/11/19 17:25 BUN 25 mg/dL (7-18) H 05/11/19 17:25 2.01 mg/dL (0.70-1.30) H 05/11/19 17:25 Est GFR (MDRD) Af Amer 43 mL/min (>60) L 05/11/19 17:25 Est GFR (MDRD) Non-Af 36 mL/min (>60) L 05/11/19 17:25 12.4 RATIO (10-20) 05/11/19 17:25 Glucose 349 mg/dL (74-106) H 05/11/19 17:25 Vancomycin Trough 14.8 ug/mL (5.0-15.0) 05/11/19 17:25 Microbiology: Microbiology 05/10/19 19:11 Biopsy - Other Gram Stain - Final 05/10/19 19:11 Biopsy - Other Wound Culture - Preliminary Gram positive organism 05/10/19 19:11 Tissue - Other Gram Stain - Final 05/10/19 19:11 Tissue - Other Wound Culture - Preliminary Gram positive organism Alpha hemolytic organism 05/10/19 05:40 Wound Abcess - Left Foot Gram Stain - Final 05/10/19 05:40 Wound Abcess - Left Foot Wound Culture - Preliminary GNR lactose practice assistant Alpha hemolytic organism 05/10/19 05:40 Urine, Clean Catch Urine Culture - Final Mixed Gram Pos & Gram Neg Org 05/10/19 05:17 Blood Culture (Wb) - Right Forearm Blood Culture - Preliminary 05/10/19 05:20 Blood Culture (Wb) - Left Forearm Blood Culture - Preliminary Weight used for dosin.9 kg Estimated Creatinine Clearance: 49 ml/min Goal Trough: 15-20 mcg/mL Pharmacy Plan for Drug Dosing: Trough obtained before this evening's dose was 14.8 mg/L. Plan to continue the same dosing regimen for now as it is almost within the goal range. It should also be noted that the patient's SCr has risen to 2.01 (CrCl 49 ml/min calculated using an adjusted body weight of 92.3kg) so we will need to monitor vancomycin levels more closely. Will repeat another trough in 24 hours. Pharmacy Service will continue to monitor and adjust dosing as required. Follow-Up Labs: Trough Vancomycin Labs to be done on [date and time ordered]: 05/12/19 17:30
[2019-05-11 21:16] LABS: Anion Gap 6 (5-15); BUN 26 mg/dL (7-18); BUN/Creat Ratio 11.7 RATIO (10-20); Chloride 106 mmol/L (98-107); Creatinine, Serum 2.22 mg/dL (0.70-1.30); EST Glomerular Filtration Rate 32 mL/min (>60); Est Glom Filt Rate - Afr Amer 39 mL/min (>60); Estimated Creatinine Clearance 38.49 ml/min; Glucose 336 mg/dL (74-106); Potassium 4.4 mmol/L (3.5-5.1); Sodium Level 134 mmol/L (136-145)
[2019-05-11 22:25] LABS: Bedside Glucose 343 mg/dL (70-110)
[2019-05-11 22:45] LABS: Anion Gap 5 (5-15); BUN 25 mg/dL (7-18); BUN/Creat Ratio 10.9 RATIO (10-20); Calcium,Total 7.9 mg/dL (8.5-10.1); Chloride 107 mmol/L (98-107); Creatinine, Serum 2.29 mg/dL (0.70-1.30); EST Glomerular Filtration Rate 31 mL/min (>60); Est Glom Filt Rate - Afr Amer 37 mL/min (>60); Estimated Creatinine Clearance 37.31 ml/min; Potassium 4.2 mmol/L (3.5-5.1); Sodium Level 134 mmol/L (136-145)
[2019-05-11 22:47] LABS: Glucose 308 mg/dL (74-106)
[2019-05-12] VITALS (8 sets, daily range): BP systolic 138–156; BP diastolic 71–81; PULSE 71–81; RESP 16–18; TEMP 36.3–36.8; O2SAT 92–97
[2019-05-12] MEDS: Morphine 4 MG/ML Syringe IV ×3 (03:46→21:32)
[2019-05-12] MEDS: 0.9% NaCl Peripheral Flush Adult/Peds IV ×2 (03:47→21:33)
[2019-05-12 05:26] LABS: Absolute Lymphocyte Count 1.61 X10^3/uL (0.83-4.51); Absolute Neutrophil Count 9.9 X10^3/uL (2.0-7.7); Basophil# 0.11 X10^3/uL; Basophil% 0.9 % (0-1); Eosinophil# 0.17 X10^3/uL; Eosinophils% 1.4 % (0-5); Hemoglobin 12.5 g/dL (13.0-16.5); Lymphocyte # 1.61 X10^3/ul (4.0); Lymphocyte % 12.8 % (19-41); Mean Corp Hgb Conc 31.3 g/dL (32-36); Mean Corpuscular Hgb 30.6 pg (27.0-32.0); Mean Platelet Vol. 10.4 fl (6.2-12.0); Monocyte# 0.69 X10^3/uL; Monocyte% 5.5 % (0-10); NRBC Flagged by Analyzer 0 % (0-5); Neutrophil # 9.87 X10^3/uL (2.7-7.7); Neutrophil % 78.4 % (47-70); Platelet Count 260 K/mm3 (150-450); RBC Distribution Width CV 12.5 % (11.6-14.6); Red Blood Count 4.08 M/mm3 (4.6-6.2); White Blood Count 12.6 K/mm3 (4.4-11.0)
--- NOTE | 2019-05-12 05:30 | PCM.CONS.GEN ---
Problem List (1) Peripheral vascular disease Status: Suspected Reason for Consult Date of Consultation: 05/12/19 History of Present Illness: The patient is a 64 year old M who was admitted to the [facility] on May 10, 2019 with multiple medical problems including diabetes [id number] and diabetic infection of the left foot and acute kidney being used complicated by morbid obesity and tobacco dependence and osteomyelitis of the left great toe and severe sepsis. I have been asked to see him by Dr. Vasquez surgical consultation regarding peripheral vascular supply to the left foot. A written copy of my surgical consult recommendations will be was present electronic records. This will be a brief focused consultation. Upon my arrival nursing reported that the patient had strikethrough on his bandage with bleeding and had to have it reinforced. The patient denies any previous vascular intervention. He denies previous history of myocardial infarction or stroke. States that he has not had any vascular surgery or endovascular techniques for his lower extremities. On May 10 he had bilateral extremity PVRs. Triphasic Doppler waveforms were noted to the ankle bilaterally. PVRs were also noted to be satisfactory at all levels. Resting ABIs were normal bilaterally. The right digital index was mildly diminished. The left atrial index could not be determined because of noncompressibility. Final interpretation was mild distal small vessel occlusive disease of the right lower extremity. Arterial calcification at the digital level in the left precluding complete assessment. Clinical correlation advised. On his presentation his white blood cell count was 23.4 thousand with 87% neutrophils. As of today his white blood cell count is 12.6 thousand with 78% neutrophils. On May 10, 2019 performed a debridement of nonviable soft tissue and bone including an open first and second ray resection was additional incision and drainage of the left foot. The operative note reports that a left leg tourniquet was applied to 250 mmHg pressure for 19 minutes. After the tourniquet was released electrocauterization and pressure was utilized to control hemostasis. No pulsatile bleeding was noted. Concern was expressed regarding calcification of distal small digital vessels. The patient states that he has been noncompliant with his medical treatment because of lack of funds. It is of note that he is a chronic tobacco user. 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) Allergies No Known Allergies Allergy (Verified 06/23/17 15:08) Home Medications: Ambulatory Orders Medication Instructions Recorded Calcium Carbonate [Calcium] 500 mg PO DAILY 06/23/17 Cephalexin [Keflex] 500 mg PO Q6 #40 capsule 06/23/17 Dulaglutide [Trulicity] 1.5 mg SQ QWEEK 06/23/17 Gabapentin [Neurontin] 300 mg PO TIDCM 06/23/17 Lisinopril [Zestril] 10 mg PO DAILY 06/23/17 Metformin HCl 1,000 mg PO BID 06/23/17 Multivitamin [Multiple Vitamins] 1 each PO DAILY 06/23/17 Potassium Chloride [K-Tab ER] 8 meq PO DAILY 06/23/17 Clindamycin HCl [Cleocin] 300 mg PO Q6H #40 cap 04/27/19 Surgical History: - - Surgery to the right ankle for fracture Psychiatric History: No pertinent psych hx Lives: Alone Smoking Status: Current every day smoker Tobacco Use: Cigarettes Alcohol: Rare Drugs: None - *Family History Maternal History Items: Diabetes Paternal History Items: Heart Disease Sibling History Items: Cancer - breast cancer in his sister Review of Systems Constitutional: Denies: Anorexia Patient Problems: Active and Suspected Problems Diabetic infection of left foot (Acute) DEAN (acute kidney injury) (Acute) Severe sepsis (Acute) Elevated troponin (Acute) Dehydration (Acute) Diabetic hyperosmolar non-ketotic state (Acute) Peripheral vascular disease (Suspected) - Physical Exam General: Alert, Oriented x3, Cooperative, No apparent distress Lungs: Clear to auscultation Cardiovascular: Regular rate, Regular Rhythm, - - Bilateral radials and brachials are 3+. Left femoral and popliteal and DP and PT pulses are all 3+. Extremities: - - The left foot dressing was partially taken down with external wraps demonstrating evidence of blood strikethrough. The dressing immediately adjacent to the wound was not exchanged. It was noted to be blood soaked. Digits are noted to be pink. The foot is warm. There is slightly diminished capillary refill at the digital level Vital Signs Temp Pulse Resp BP Pulse Ox 98.2 F 76 16 156/81 H 94 05/12/19 03:15 05/12/19 03:15 05/12/19 03:15 05/12/19 03:15 05/12/19 03:15 Oxygen Delivery Method Room Air Weight: 244 lb 7.882 oz Body Mass Index (BMI) 32.2 Finger Stick Blood Glucose 600 Intake and Output for Last 24 Hours 05/10/19 05/11/19 05/12/19 23:59 23:59 23:59 Intake Total 6209.4 / 6209.4 6877.27 / 6877.27 693.13 / 693.13 Output Total 2450 / 2450 650 / 650 Balance 3759.4 / 3759.4 6227.27 / 6227.27 693.13 / 693.13 Microbiology Past 72 Hours 05/10/19 05:17 Blood Culture - Preliminary Blood Culture (Wb) - Right Forearm 05/10/19 19:11 Gram Stain - Final Biopsy - Other Wound Culture - Preliminary Gram positive organism 05/10/19 19:11 Gram Stain - Final Tissue - Other Wound Culture - Preliminary Gram positive organism Alpha hemolytic organism 05/10/19 05:40 Gram Stain - Final Wound Abcess - Left Foot Wound Culture - Preliminary GNR lactose music rehabilitation therapist Alpha hemolytic organism 05/10/19 05:40 Urine Culture - Final Urine, Clean Catch Mixed Gram Pos & Gram Neg Org 05/10/19 05:20 Blood Culture - Preliminary Blood Culture (Wb) - Left Forearm Laboratory Tests Past 24 Hrs 05/11/19 05/11/19 05/11/19 06:08 06:08 10:35 WBC 14.6 H RBC 4.37 L Hgb 13.5 Hct 41.7 MCV 95.4 H MCH 30.9 MCHC 32.4 RDW Std Deviation 44.4 H RDW Coeff of Fatuma 12.6 Plt Count 297 MPV 10.5 Immature Gran % (Auto) 0.800 Neut % (Auto) 79.9 H Lymph % (Auto) 11.1 L Graham % (Auto) 6.7 Eos % (Auto) 1.0 Baso % (Auto) 0.5 Absolute Neuts (auto) 11.7 H Absolute Lymphs (auto) 1.62 Nucleated RBC % 0 Sodium 139 Potassium 4.1 Chloride 108 H Carbon Dioxide 20.0 L Anion Gap 11 BUN 16 Creatinine 1.16 Estim Creat Clear Calc 73.66 Est GFR (MDRD) Af Amer 82 Est GFR (MDRD) Non-Af 68 BUN/Creatinine Ratio 13.8 Glucose 212 H Calcium 7.9 L Phosphorus 3.3 Magnesium 1.8 Total Creatine Kinase 2608 H Triglycerides 67 Cholesterol 69 LDL Cholesterol 13 VLDL Cholesterol 13 HDL Cholesterol 43 Ur Random Sodium Urine Creatinine 71.60 Vancomycin Trough 05/11/19 05/11/19 05/11/19 10:35 17:25 17:25 WBC RBC Hgb Hct MCV MCH MCHC RDW Std Deviation RDW Coeff of Fatuma Plt Count MPV Immature Gran % (Auto) Neut % (Auto) Lymph % (Auto) Graham % (Auto) Eos % (Auto) Baso % (Auto) Absolute Neuts (auto) Absolute Lymphs (auto) Nucleated RBC % Sodium 133 L Potassium 5.3 H Chloride 106 Carbon Dioxide 19.0 L Anion Gap 8 BUN 25 H Creatinine 2.01 H Estim Creat Clear Calc 42.51 Est GFR (MDRD) Af Amer 43 L Est GFR (MDRD) Non-Af 36 L BUN/Creatinine Ratio 12.4 Glucose 349 H Calcium 7.6 L Phosphorus Magnesium Total Creatine Kinase Triglycerides Cholesterol LDL Cholesterol VLDL Cholesterol HDL Cholesterol Ur Random Sodium 32 Urine Creatinine Vancomycin Trough 14.8 05/11/19 05/11/19 05/11/19 17:25 20:45 22:15 WBC RBC Hgb Hct MCV MCH MCHC RDW Std Deviation RDW Coeff of Fatuma Plt Count MPV Immature Gran % (Auto) Neut % (Auto) Lymph % (Auto) Graham % (Auto) Eos % (Auto) Baso % (Auto) Absolute Neuts (auto) Absolute Lymphs (auto) Nucleated RBC % Sodium 134 L 134 L Potassium 4.4 4.2 Chloride 106 107 Carbon Dioxide 22.0 22.0 Anion Gap 6 5 BUN 26 H 25 H Creatinine 2.22 H 2.29 H Estim Creat Clear Calc 38.49 37.31 Est GFR (MDRD) Af Amer 39 L 37 L Est GFR (MDRD) Non-Af 32 L 31 L BUN/Creatinine Ratio 11.7 10.9 Glucose 336 H 308 H Calcium 8.0 L 7.9 L Phosphorus Magnesium Total Creatine Kinase 3085 H Triglycerides Cholesterol LDL Cholesterol VLDL Cholesterol HDL Cholesterol Ur Random Sodium Urine Creatinine Vancomycin Trough 05/12/19 05/12/19 05:10 05:10 WBC 12.6 H RBC 4.08 L Hgb 12.5 L Hct 40.0 MCV 98.0 H MCH 30.6 MCHC 31.3 L RDW Std Deviation 45.0 H RDW Coeff of Fatuma 12.5 Plt Count 260 MPV 10.4 Immature Gran % (Auto) 1.000 H Neut % (Auto) 78.4 H Lymph % (Auto) 12.8 L Graham % (Auto) 5.5 Eos % (Auto) 1.4 Baso % (Auto) 0.9 Absolute Neuts (auto) 9.9 H Absolute Lymphs (auto) 1.61 Nucleated RBC % 0 Sodium Potassium Chloride Carbon Dioxide Anion Gap BUN Creatinine Estim Creat Clear Calc Est GFR (MDRD) Af Amer Est GFR (MDRD) Non-Af BUN/Creatinine Ratio Glucose Calcium Phosphorus Pending Magnesium Pending Total Creatine Kinase Triglycerides Cholesterol LDL Cholesterol VLDL Cholesterol HDL Cholesterol Ur Random Sodium Urine Creatinine Vancomycin Trough POC Glucose 05/11/19 05/11/19 05/11/19 21:18 16:39 11:37 POC Glucose 343 H 353 H 300 H 05/11/19 06:32 POC Glucose 232 H Assessment/Plan All Active Problems Diabetic infection of left foot (Acute) DEAN (acute kidney injury) (Acute) Severe sepsis (Acute) Elevated troponin (Acute) Dehydration (Acute) Diabetic hyperosmolar non-ketotic state (Acute) I am actually very impressed and pleased with the degree of blood supply that Mr. Wynne is getting to the left foot. He has blood strikethrough with saturated dressings. He has nicely palpable DP and PT pulses. Doppler waveforms demonstrate that large vessel inflow is well-maintained. Based upon his presentation particularly with the amount of strikethrough blood that he has had do not believe that he will require any type of vascular intervention. As noted it would appear that his large vessel inflow with which we might be able to interact is well-maintained. Obviously he will be followed clinically for resolution of his osteomyelitis in the space foot infection. With a creatinine clearance of 31 mm/min and a BUN of 25 and a creatinine of 2.29 I am not recommending any additional vascular studies or intervention at this time. It is of note that blood glucose yesterday was as high as 349. Ongoing medical maximization of his care should assist with wound healing and infection as well. I appreciate the opportunity of assisting with his surgical care. At this point I am not anticipating that he will require any type of intervention. Teo Heller M.D., F.A.C.S.
[2019-05-12 05:45] LABS: Magnesium 1.9 mg/dL (1.6-2.6); Phosphorus 3.7 mg/dL (2.5-4.9)
[2019-05-12] MEDS: Insulin Lispro 100 UNIT/ML INSULN.PEN SC ×3 (06:51→17:08)
[2019-05-12 07:00] LABS: Bedside Glucose 222 mg/dL (70-110)
[2019-05-12] MEDS: Calcium (Elemental) 500 MG Tablet PO (08:03)
[2019-05-12] MEDS: Ascorbic Acid 500 MG Tablet PO ×2 (08:03→17:07)
[2019-05-12] MEDS: Lisinopril 10 MG Tablet PO (08:03)
[2019-05-12] MEDS: Multivitamins,Therapeutic Tablet 1 TABLET PO (08:03)
[2019-05-12] MEDS: Famotidine 20 MG Tablet PO ×2 (08:03→21:32)
[2019-05-12] MEDS: Docusate Sodium 100 MG Capsule PO ×2 (08:04→21:31)
--- NOTE | 2019-05-12 09:03 | PCM.PROGNOTE ---
Patient Problems: Active and Suspected Problems Diabetic infection of left foot (Acute) DEAN (acute kidney injury) (Acute) Severe sepsis (Acute) Elevated troponin (Acute) Dehydration (Acute) Diabetic hyperosmolar non-ketotic state (Acute) Peripheral vascular disease (Suspected) Subjective: This 64 year old male with multiple comorbidities was seen bedside left foot s/p debridement of non viable soft tissue and bone including first and second ray resections. He denies fever, chills, nausea, vomiting, urinary retention, or loss of appetite today. He rates his pain as a 5/10. - Physical Exam General: Alert, Oriented x3, Cooperative Extremities: No cyanosis, Capillary Refill Less than 3 Seconds, No Calf Tenderness - negative agustina and stafford signs, Diminished Peripheral Pulses, Edema Skin: Ulcer/ Wound - no purulence on expression. odor resolved. the open amputation/debridement site has fibrous, granular tissue with devitalized and some healthy tissue. there is no alfred eschar noted. no streaking noted. the peripheral skin is hairless and atrophic. there is no bogginess or fluctuance on palpation. the incision that extends to the dorsal lateral foot is also free of purulence on expression Musculoskeletal: No Tenderness to Palpation of Joints or Extremities, Muscle Wasting, - - arom digits Neurological: - - lack of normal sensation via light touch consistent with neuropathy Psych/Mental Status: Normal Affect, Appropriate Vital Signs Temp Pulse Resp BP Pulse Ox 98.2 F 77 16 156/81 H 94 05/12/19 03:15 05/12/19 07:00 05/12/19 03:15 05/12/19 03:15 05/12/19 03:15 Oxygen Delivery Method Room Air Weight: 110.9 kg Body Mass Index (BMI) 32.2 Finger Stick Blood Glucose 600 Intake and Output for Last 24 Hours 05/10/19 05/11/19 05/12/19 23:59 23:59 23:59 Intake Total 6209.4 / 6209.4 6877.27 / 6877.27 933.13 / 933.13 Output Total 2450 / 2450 650 / 650 700 / 700 Balance 3759.4 / 3759.4 6227.27 / 6227.27 233.13 / 233.13 Microbiology Past 72 Hours 05/10/19 05:17 Blood Culture - Preliminary Blood Culture (Wb) - Right Forearm Alpha Hemolytic Streptococcus 05/10/19 05:20 Blood Culture - Preliminary Blood Culture (Wb) - Left Forearm Alpha Hemolytic Streptococcus 05/10/19 19:11 Gram Stain - Final Biopsy - Other Wound Culture - Preliminary Gram positive organism 05/10/19 19:11 Gram Stain - Final Tissue - Other Wound Culture - Preliminary Gram positive organism Alpha hemolytic organism 05/10/19 05:40 Gram Stain - Final Wound Abcess - Left Foot Wound Culture - Preliminary GNR lactose mutton puncher Alpha hemolytic organism 05/10/19 05:40 Urine Culture - Final Urine, Clean Catch Mixed Gram Pos & Gram Neg Org Laboratory Tests Past 24 Hrs 05/11/19 05/11/19 05/11/19 10:35 10:35 17:25 WBC RBC Hgb Hct MCV MCH MCHC RDW Std Deviation RDW Coeff of Fatuma Plt Count MPV Immature Gran % (Auto) Neut % (Auto) Lymph % (Auto) Gregory % (Auto) Eos % (Auto) Baso % (Auto) Absolute Neuts (auto) Absolute Lymphs (auto) Nucleated RBC % Sodium Potassium Chloride Carbon Dioxide Anion Gap BUN Creatinine Estim Creat Clear Calc Est GFR (MDRD) Af Amer Est GFR (MDRD) Non-Af BUN/Creatinine Ratio Glucose Calcium Phosphorus Magnesium Total Creatine Kinase Ur Random Sodium 32 Urine Creatinine 71.60 Vancomycin Trough 14.8 05/11/19 05/11/19 05/11/19 17:25 17:25 20:45 WBC RBC Hgb Hct MCV MCH MCHC RDW Std Deviation RDW Coeff of Fatuma Plt Count MPV Immature Gran % (Auto) Neut % (Auto) Lymph % (Auto) Gregory % (Auto) Eos % (Auto) Baso % (Auto) Absolute Neuts (auto) Absolute Lymphs (auto) Nucleated RBC % Sodium 133 L 134 L Potassium 5.3 H 4.4 Chloride 106 106 Carbon Dioxide 19.0 L 22.0 Anion Gap 8 6 BUN 25 H 26 H Creatinine 2.01 H 2.22 H Estim Creat Clear Calc 42.51 38.49 Est GFR (MDRD) Af Amer 43 L 39 L Est GFR (MDRD) Non-Af 36 L 32 L BUN/Creatinine Ratio 12.4 11.7 Glucose 349 H 336 H Calcium 7.6 L 8.0 L Phosphorus Magnesium Total Creatine Kinase 3085 H Ur Random Sodium Urine Creatinine Vancomycin Trough 05/11/19 05/12/19 05/12/19 22:15 05:10 05:10 WBC 12.6 H RBC 4.08 L Hgb 12.5 L Hct 40.0 MCV 98.0 H MCH 30.6 MCHC 31.3 L RDW Std Deviation 45.0 H RDW Coeff of Fatuma 12.5 Plt Count 260 MPV 10.4 Immature Gran % (Auto) 1.000 H Neut % (Auto) 78.4 H Lymph % (Auto) 12.8 L Gregory % (Auto) 5.5 Eos % (Auto) 1.4 Baso % (Auto) 0.9 Absolute Neuts (auto) 9.9 H Absolute Lymphs (auto) 1.61 Nucleated RBC % 0 Sodium 134 L Potassium 4.2 Chloride 107 Carbon Dioxide 22.0 Anion Gap 5 BUN 25 H Creatinine 2.29 H Estim Creat Clear Calc 37.31 Est GFR (MDRD) Af Amer 37 L Est GFR (MDRD) Non-Af 31 L BUN/Creatinine Ratio 10.9 Glucose 308 H Calcium 7.9 L Phosphorus 3.7 Magnesium 1.9 Total Creatine Kinase Ur Random Sodium Urine Creatinine Vancomycin Trough POC Glucose 05/12/19 05/11/19 05/11/19 06:50 21:18 16:39 POC Glucose 222 H 343 H 353 H 05/11/19 11:37 POC Glucose 300 H Medical Necessity - Tobacco Use Smoking Status: Current every day smoker Tobacco Use: Cigarettes Assessment/Plan All Active Problems Diabetic infection of left foot (Acute) DEAN (acute kidney injury) (Acute) Severe sepsis (Acute) Elevated troponin (Acute) Dehydration (Acute) Diabetic hyperosmolar non-ketotic state (Acute) Left diabetic foot infection with associated severe sepsis and osteomyelitis now POD #2 left soft tissue and bone debridement including open first and second ray resection Uncontrolled diabetes with neuropathy Malnutrition suspected Lower extremity edema Other comorbidities I reviewed and discussed his case. I also reviewed his diagnostic data. It is noted his white blood cell count was 23.4 and is decreased to 12.6 today. He is afebrile and his vitals are stable otherwise. His cultures from surgery is in process. So far gram positive and alpha hemolytic organisms growth is noted. The clearance fragment demonstrates gram positive growth so far as well. It is noted he has bacteremia. Pathology specimens are pending. He was started on IV vancomycin and Zosyn per infectious disease recommendations; this will be altered pending culture results. Clinically, the infection status is stabilizing to the foot now that he is s/p. This will be monitored close for complete infection resolution and tissue demarcation to determine the level of limb salvage. He understands a transmetatarsal amputation is likely after the tissues demarcates. Vascular surgery consult is appreciated; no intervention is planned. Hemostasis is controlled; it is ok to resume enoxaparin. To remain non weightbearing to left lower extremity; surgical shoe was ordered. Medical management and DVT prophylaxis per primary team is appreciated. I will continue to follow him close while in house. Please do not hesitate to call if you have any questions. Irene Claudio DPM, [facility] [phone]
[2019-05-12] MEDS: Enoxaparin 40 MG/0.4 ML Syringe SC (11:28)
[2019-05-12 11:51] LABS: Bedside Glucose 309 mg/dL (70-110)
--- NOTE | 2019-05-12 12:18 | CASEMGMT ---
SW spoke with patient about qualifying for Medicaid. SW explained the Medicaid Qualified Income Trust (QIT) program. SW explained that he is over the $2313 allotted amount. SW explained that anything over this 2313 has to go into this account every month while he is in the detention. ROBBIN told him this is used to pay for his medical expenses. ROBBIN explained once he is discharged home the account still exists, but he no longer has to contribute money. Any money left over in the account has to be used to pay for medical expenses. He cannot just close out the account and get the money back. SW also told him that if the account is not set up with money in it before the end of the current month they will not be able to qualify him for Medicaid for that month. He said his sister would be able to help him with setting up this account. He has not decided which SNF he will go to yet. ROBBIN told him he will need to pick at least 3 facilities so SW can work on referrals. His sister teaches in [place] and is not off until 2p. ROBBIN gave him the QIT information with SW's name and phone number on it. He will talk with his sister and they will set up a time to meet with ROBBIN. Kylah FRANZ MSW
--- NOTE | 2019-05-12 13:28 | PCM.PROGNOTE ---
Patient Problems: Active and Suspected Problems Diabetic infection of left foot (Acute) DEAN (acute kidney injury) (Acute) Severe sepsis (Acute) Elevated troponin (Acute) Dehydration (Acute) Diabetic hyperosmolar non-ketotic state (Acute) Peripheral vascular disease (Suspected) Subjective: Day #3 antibiotics transitioned to Rocephin today from Vanco and Zosyn at admission Postoperative day #2 All events of the past 24 hours of been reviewed. He is afebrile. Vital signs are stable. He is 92 to 93% saturated on room air. Fluid balance since admission is +11,804. All lab was personally reviewed. White blood cell count today is down to 12.6 from 23.4 to admission. Seen in consultation by Dr. Teo Heller today and his impression is that no intervention is necessary at this time. Patient states his pain is adequately controlled. He denies chest pain, shortness of breath, nausea, vomiting, diarrhea, sores in his mouth. Objective: PHYSICAL EXAM: GENERAL: alert, oriented X 3, Cooperative, NAD, looks better today with better color in his face, more alert, sitting up in the recliner at the bedside ORAL: moist mucosa, no mucosal lesions NECK: No JVD, supple, trachea midline LUNGS: CTA, symmetric chest expansion, diminished in the bases mostly, no wheezes, rhonchi or rales, not tachypneic HEART: RRR, Normal S1 and S2, no rub, no gallop, telemetry -normal sinus rhythm with no ventricular ectopy today ABDOMEN: soft, NT, ND, BS present, no guarding with palpation, obese EXTREMITIES: no edema, no cyanosis, no calf tenderness SKIN: No rashes, the abrasions on the knees, elbows, face are all stable with no evidence infection, see Dr. Claudio's dictation for description of the wound NEUROLOGIC: no focal neurologic deficits PSYCH: appropriate, normal affect, pleasant - Physical Exam Vital Signs Temp Pulse Resp BP Pulse Ox 98.3 F 81 18 146/72 H 92 05/12/19 09:15 05/12/19 09:15 05/12/19 09:15 05/12/19 09:15 05/12/19 09:15 Oxygen Delivery Method Room Air Weight: 244 lb 7.882 oz Body Mass Index (BMI) 32.2 Finger Stick Blood Glucose 600 Intake and Output for Last 24 Hours 05/10/19 05/11/19 05/12/19 23:59 23:59 23:59 Intake Total 6209.4 / 6209.4 6877.27 / 6877.27 2518.13 / 2518.13 Output Total 2450 / 2450 650 / 650 700 / 700 Balance 3759.4 / 3759.4 6227.27 / 6227.27 1818.13 / 1818.13 Microbiology Past 72 Hours 05/10/19 19:11 Gram Stain - Final Biopsy - Other Wound Culture - Preliminary Gram positive organism 05/10/19 05:40 Gram Stain - Final Wound Abcess - Left Foot Wound Culture - Preliminary Klebsiella oxytoca Alpha hemolytic organism Anaerobic Culture - Preliminary Checking for anaerobes, further studies to follow. 05/10/19 05:17 Blood Culture - Preliminary Blood Culture (Wb) - Right Forearm Alpha Hemolytic Streptococcus 05/10/19 05:20 Blood Culture - Preliminary Blood Culture (Wb) - Left Forearm Alpha Hemolytic Streptococcus 05/10/19 19:11 Gram Stain - Final Tissue - Other Wound Culture - Preliminary Gram positive organism Alpha hemolytic organism 05/10/19 05:40 Urine Culture - Final Urine, Clean Catch Mixed Gram Pos & Gram Neg Org Laboratory Tests Past 24 Hrs 05/11/19 05/11/19 05/11/19 17:25 17:25 17:25 WBC RBC Hgb Hct MCV MCH MCHC RDW Std Deviation RDW Coeff of Fatuma Plt Count MPV Immature Gran % (Auto) Neut % (Auto) Lymph % (Auto) Jay % (Auto) Eos % (Auto) Baso % (Auto) Absolute Neuts (auto) Absolute Lymphs (auto) Nucleated RBC % Sodium 133 L Potassium 5.3 H Chloride 106 Carbon Dioxide 19.0 L Anion Gap 8 BUN 25 H Creatinine 2.01 H Estim Creat Clear Calc 42.51 Est GFR (MDRD) Af Amer 43 L Est GFR (MDRD) Non-Af 36 L BUN/Creatinine Ratio 12.4 Glucose 349 H Calcium 7.6 L Phosphorus Magnesium Total Creatine Kinase 3085 H Vancomycin Trough 14.8 05/11/19 05/11/19 05/12/19 20:45 22:15 05:10 WBC 12.6 H RBC 4.08 L Hgb 12.5 L Hct 40.0 MCV 98.0 H MCH 30.6 MCHC 31.3 L RDW Std Deviation 45.0 H RDW Coeff of Fatuma 12.5 Plt Count 260 MPV 10.4 Immature Gran % (Auto) 1.000 H Neut % (Auto) 78.4 H Lymph % (Auto) 12.8 L Jay % (Auto) 5.5 Eos % (Auto) 1.4 Baso % (Auto) 0.9 Absolute Neuts (auto) 9.9 H Absolute Lymphs (auto) 1.61 Nucleated RBC % 0 Sodium 134 L 134 L Potassium 4.4 4.2 Chloride 106 107 Carbon Dioxide 22.0 22.0 Anion Gap 6 5 BUN 26 H 25 H Creatinine 2.22 H 2.29 H Estim Creat Clear Calc 38.49 37.31 Est GFR (MDRD) Af Amer 39 L 37 L Est GFR (MDRD) Non-Af 32 L 31 L BUN/Creatinine Ratio 11.7 10.9 Glucose 336 H 308 H Calcium 8.0 L 7.9 L Phosphorus Magnesium Total Creatine Kinase Vancomycin Trough 05/12/19 05:10 WBC RBC Hgb Hct MCV MCH MCHC RDW Std Deviation RDW Coeff of Fatuma Plt Count MPV Immature Gran % (Auto) Neut % (Auto) Lymph % (Auto) Jay % (Auto) Eos % (Auto) Baso % (Auto) Absolute Neuts (auto) Absolute Lymphs (auto) Nucleated RBC % Sodium Potassium Chloride Carbon Dioxide Anion Gap BUN Creatinine Estim Creat Clear Calc Est GFR (MDRD) Af Amer Est GFR (MDRD) Non-Af BUN/Creatinine Ratio Glucose Calcium Phosphorus 3.7 Magnesium 1.9 Total Creatine Kinase Vancomycin Trough POC Glucose 05/12/19 05/12/19 05/11/19 11:25 06:50 21:18 POC Glucose 309 H 222 H 343 H 05/11/19 16:39 POC Glucose 353 H Medical Necessity - Tobacco Use Smoking Status: Current every day smoker Tobacco Use: Cigarettes Assessment/Plan All Active Problems Diabetic infection of left foot (Acute) DEAN (acute kidney injury) (Acute) Severe sepsis (Acute) Elevated troponin (Acute) Dehydration (Acute) Diabetic hyperosmolar non-ketotic state (Acute) Postoperative day #2 Day # 3 antibiotics-transition to Rocephin today Impressions 1. severe sepsis due to diabetic foot infection with ARF and bacteremia in 2/2 BC's with GM + cocci in chains 2. Diabetic hyperosmolar non-ketotic state -resolved 3. DM II - uncontrolled. Hemoglobin A1c is 13.3. 4. ARF - likely pre-renal at admission. The fractional excretion of sodium was less than 1%. Creat continues to increase.....has been on Vanco....no contrast. 5. Diabetic foot infection with necrosis and osteomyelitis 6. Dehydration 7. Diabetic peripheral polyneuropathy 8. Tobacco dependence 9. ANT-noncompliant with CPAP 10. Abrasions to both knees, chin, nose and forehead 11. Hypertension 12. Hypokalemia 13. Rhabdomyolysis 14. NSTEMI - more likely than not Type II due to demand ischemia related to severe sepsis 15. Stage I diastolic dysfunction with inferobasal hypokinesis 16. hyponatremia-resolved Continue Rocephin Will need further surgical intervention but Dr. Claudio is waiting for the wound to demarcate better-possibly will need a transmetatarsal amputation of the forefoot Creatinine has increased from 1.33 at admission to 2.39 today. He has been adequately fluid resuscitated however he had been on vancomycin. We will recheck lab in the a.m. and if the creatinine does not begin to improve will consult nephrology. Check postvoid residual. Fluid balance is up 12-1/2 L since admission. Check a urine sodium and creatinine to calculate fractional excretion of urine. If creatinine continues to increase will order renal ultrasound in the a.m. Code Visit Inpatient E&M: [id number] [facility] L3
[2019-05-12] MEDS: metroNIDAZOLE 500 MG Tablet PO ×2 (14:07→21:31)
--- NOTE | 2019-05-12 14:08 | PN.ID_ITS ---
Patient Problems: Active and Suspected Problems Diabetic infection of left foot (Acute) DEAN (acute kidney injury) (Acute) Severe sepsis (Acute) Elevated troponin (Acute) Dehydration (Acute) Diabetic hyperosmolar non-ketotic state (Acute) Peripheral vascular disease (Suspected) Subjective: Feeling better, pain improved, no fever - Physical Exam General: Alert, Cooperative, No apparent distress Lungs: Clear to auscultation, Normal air movement Cardiovascular: Regular rate, Regular Rhythm Abdomen: Soft, Non Tender, Non-Distended Skin: Ulcer/ Wound - foot wrapped Vital Signs Temp Pulse Resp BP Pulse Ox 98.3 F 81 18 146/72 H 92 05/12/19 09:15 05/12/19 09:15 05/12/19 09:15 05/12/19 09:15 05/12/19 09:15 Oxygen Delivery Method Room Air Weight: 110.9 kg Body Mass Index (BMI) 32.2 Finger Stick Blood Glucose 600 Intake and Output for Last 24 Hours 05/10/19 05/11/19 05/12/19 23:59 23:59 23:59 Intake Total 6209.4 / 6209.4 6877.27 / 6877.27 2568.13 / 2568.13 Output Total 2450 / 2450 650 / 650 700 / 700 Balance 3759.4 / 3759.4 6227.27 / 6227.27 1868.13 / 1868.13 Microbiology Past 72 Hours 05/10/19 19:11 Gram Stain - Final Tissue - Other Wound Culture - Preliminary GPC Poss Enterococcus sp Alpha hemolytic organism 05/10/19 05:40 Gram Stain - Final Wound Abcess - Left Foot Wound Culture - Preliminary Klebsiella oxytoca Gram positive veronica Anaerobic Culture - Preliminary Checking for anaerobes, further studies to follow. 05/10/19 19:11 Gram Stain - Final Biopsy - Other Wound Culture - Preliminary Gram positive organism 05/10/19 05:17 Blood Culture - Preliminary Blood Culture (Wb) - Right Forearm Alpha Hemolytic Streptococcus 05/10/19 05:20 Blood Culture - Preliminary Blood Culture (Wb) - Left Forearm Alpha Hemolytic Streptococcus 05/10/19 05:40 Urine Culture - Final Urine, Clean Catch Mixed Gram Pos & Gram Neg Org Laboratory Tests Past 24 Hrs 05/11/19 05/11/19 05/11/19 17:25 17:25 17:25 WBC RBC Hgb Hct MCV MCH MCHC RDW Std Deviation RDW Coeff of Fatuma Plt Count MPV Immature Gran % (Auto) Neut % (Auto) Lymph % (Auto) [place] % (Auto) Eos % (Auto) Baso % (Auto) Absolute Neuts (auto) Absolute Lymphs (auto) Nucleated RBC % Sodium 133 L Potassium 5.3 H Chloride 106 Carbon Dioxide 19.0 L Anion Gap 8 BUN 25 H Creatinine 2.01 H Estim Creat Clear Calc 42.51 Est GFR (MDRD) Af Amer 43 L Est GFR (MDRD) Non-Af 36 L BUN/Creatinine Ratio 12.4 Glucose 349 H Calcium 7.6 L Phosphorus Magnesium Total Creatine Kinase 3085 H Vancomycin Trough 14.8 05/11/19 05/11/19 05/12/19 20:45 22:15 05:10 WBC 12.6 H RBC 4.08 L Hgb 12.5 L Hct 40.0 MCV 98.0 H MCH 30.6 MCHC 31.3 L RDW Std Deviation 45.0 H RDW Coeff of Fatuma 12.5 Plt Count 260 MPV 10.4 Immature Gran % (Auto) 1.000 H Neut % (Auto) 78.4 H Lymph % (Auto) 12.8 L [place] % (Auto) 5.5 Eos % (Auto) 1.4 Baso % (Auto) 0.9 Absolute Neuts (auto) 9.9 H Absolute Lymphs (auto) 1.61 Nucleated RBC % 0 Sodium 134 L 134 L Potassium 4.4 4.2 Chloride 106 107 Carbon Dioxide 22.0 22.0 Anion Gap 6 5 BUN 26 H 25 H Creatinine 2.22 H 2.29 H Estim Creat Clear Calc 38.49 37.31 Est GFR (MDRD) Af Amer 39 L 37 L Est GFR (MDRD) Non-Af 32 L 31 L BUN/Creatinine Ratio 11.7 10.9 Glucose 336 H 308 H Calcium 8.0 L 7.9 L Phosphorus Magnesium Total Creatine Kinase Vancomycin Trough 05/12/19 05:10 WBC RBC Hgb Hct MCV MCH MCHC RDW Std Deviation RDW Coeff of Fatuma Plt Count MPV Immature Gran % (Auto) Neut % (Auto) Lymph % (Auto) [place] % (Auto) Eos % (Auto) Baso % (Auto) Absolute Neuts (auto) Absolute Lymphs (auto) Nucleated RBC % Sodium Potassium Chloride Carbon Dioxide Anion Gap BUN Creatinine Estim Creat Clear Calc Est GFR (MDRD) Af Amer Est GFR (MDRD) Non-Af BUN/Creatinine Ratio Glucose Calcium Phosphorus 3.7 Magnesium 1.9 Total Creatine Kinase Vancomycin Trough POC Glucose 05/12/19 05/12/19 05/11/19 11:25 06:50 21:18 POC Glucose 309 H 222 H 343 H 05/11/19 16:39 POC Glucose 353 H Medical Necessity - Tobacco Use Smoking Status: Current every day smoker Tobacco Use: Cigarettes Route of nutrition/ use of supplements: [] Nutritional Intake: [] IV Site: [] Dyer Catheter: [] - Assessment/Plan Antibiotics: [] Assessment/Plan: [] Active and Suspected Problems Diabetic infection of left foot (Acute) 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 On empiric vanc/zosyn. Staph aureus pcr was neg from foot. Bcx x2 (+) alpha strep. Surg cxs with enterococcus-like, gram pos, strep, klebs, GPR. TTE with no veg seen. Wbc, Cr, and lactate improved. No fever. Now s/p I&D 05/[address] Claudio. Narrow abx to vanc/ceftriax one/flagyl. Has DEAN, vanc trough has been at goal. D/c isolation. Will follow
[2019-05-12 15:09] LABS: Anion Gap 10 (5-15); BUN 26 mg/dL (7-18); BUN/Creat Ratio 10.9 RATIO (10-20); CPK Total, Creatine Kinase 1653 U/L (39-308); Calcium,Total 7.9 mg/dL (8.5-10.1); Chloride 110 mmol/L (98-107); Creatinine, Serum 2.39 mg/dL (0.70-1.30); EST Glomerular Filtration Rate 29 mL/min (>60); Est Glom Filt Rate - Afr Amer 36 mL/min (>60); Estimated Creatinine Clearance 35.75 ml/min; Glucose 233 mg/dL (74-106); Potassium 4.5 mmol/L (3.5-5.1); Sodium Level 137 mmol/L (136-145)
--- NOTE | 2019-05-12 15:54 | PCM.RX.CS ---
<Teo Cuello - Last Filed: 05/12/19 15:54> Consult Pharmacy has been consulted to manage selected antiobiotic: Vancomycin Suspected Infection: Sepsis, Osteomyelitis Prior Doses of Antibiotics Received/Current Regimen: Has been on 1500mg q12h. Labs: Sodium 137 mmol/L (136-145) 05/12/19 05:10 Potassium 4.5 mmol/L (3.5-5.1) 05/12/19 05:10 Chloride 110 mmol/L (98-107) H 05/12/19 05:10 Carbon Dioxide 17.0 mmol/L (21.0-32.0) L 05/12/19 05:10 10 (5-15) 05/12/19 05:10 BUN 26 mg/dL (7-18) H 05/12/19 05:10 2.39 mg/dL (0.70-1.30) H 05/12/19 05:10 Est GFR (MDRD) Af Amer 36 mL/min (>60) L 05/12/19 05:10 Est GFR (MDRD) Non-Af 29 mL/min (>60) L 05/12/19 05:10 10.9 RATIO (10-20) 05/12/19 05:10 Glucose 233 mg/dL (74-106) H 05/12/19 05:10 Vancomycin Trough 14.8 ug/mL (5.0-15.0) 05/11/19 17:25 Microbiology: Microbiology 05/10/19 19:11 Tissue - Other Gram Stain - Final 05/10/19 19:11 Tissue - Other Wound Culture - Preliminary GPC Poss Enterococcus sp Alpha hemolytic organism 05/10/19 05:40 Wound Abcess - Left Foot Gram Stain - Final 05/10/19 05:40 Wound Abcess - Left Foot Wound Culture - Preliminary Klebsiella oxytoca Gram positive veronica 05/10/19 05:40 Wound Abcess - Left Foot Anaerobic Culture - Preliminary Checking for anaerobes, further studies to follow. 05/10/19 19:11 Biopsy - Other Gram Stain - Final 05/10/19 19:11 Biopsy - Other Wound Culture - Preliminary Gram positive organism 05/10/19 05:17 Blood Culture (Wb) - Right Forearm Blood Culture - Preliminary Alpha Hemolytic Streptococcus 05/10/19 05:20 Blood Culture (Wb) - Left Forearm Blood Culture - Preliminary Alpha Hemolytic Streptococcus 05/10/19 05:40 Urine, Clean Catch Urine Culture - Final Mixed Gram Pos & Gram Neg Org Weight used for dosin.9 kg Estimated Creatinine Clearance: ~35 ml/min Goal Trough: 15-20 mcg/mL Pharmacy Plan for Drug Dosing: Will obtain another trough level today @1730 due to renal function changing (goal range 15-20 mcg/ml). Level 8.20.19 was 14.8. Will continue 1500mg iv q12h if therapeutic trough level. Pharmacy Service will continue to monitor and adjust dosing as required. Follow-Up Labs: Trough Vancomycin - 8.. @1730 before 1800 dose <[place] - Last Filed: 05/12/19 18:48> Consult Labs: Sodium 137 mmol/L (136-145) 05/12/19 05:10 Potassium 4.5 mmol/L (3.5-5.1) 05/12/19 05:10 Chloride 110 mmol/L (98-107) H 05/12/19 05:10 Carbon Dioxide 17.0 mmol/L (21.0-32.0) L 05/12/19 05:10 10 (5-15) 05/12/19 05:10 BUN 26 mg/dL (7-18) H 05/12/19 05:10 2.39 mg/dL (0.70-1.30) H 05/12/19 05:10 Est GFR (MDRD) Af Amer 36 mL/min (>60) L 05/12/19 05:10 Est GFR (MDRD) Non-Af 29 mL/min (>60) L 05/12/19 05:10 10.9 RATIO (10-20) 05/12/19 05:10 Glucose 233 mg/dL (74-106) H 05/12/19 05:10 Vancomycin Trough 23.4 ug/mL (5.0-15.0) H 05/12/19 17:30 Microbiology: Microbiology 05/10/19 19:11 Tissue - Other Gram Stain - Final 05/10/19 19:11 Tissue - Other Wound Culture - Preliminary GPC Poss Enterococcus sp Alpha hemolytic organism 05/10/19 05:40 Wound Abcess - Left Foot Gram Stain - Final 05/10/19 05:40 Wound Abcess - Left Foot Wound Culture - Preliminary Klebsiella oxytoca Gram positive veronica 05/10/19 05:40 Wound Abcess - Left Foot Anaerobic Culture - Preliminary Checking for anaerobes, further studies to follow. 05/10/19 19:11 Biopsy - Other Gram Stain - Final 05/10/19 19:11 Biopsy - Other Wound Culture - Preliminary Gram positive organism 05/10/19 05:17 Blood Culture (Wb) - Right Forearm Blood Culture - Preliminary Alpha Hemolytic Streptococcus 05/10/19 05:20 Blood Culture (Wb) - Left Forearm Blood Culture - Preliminary Alpha Hemolytic Streptococcus 05/10/19 05:40 Urine, Clean Catch Urine Culture - Final Mixed Gram Pos & Gram Neg Org Pharmacy Plan for Drug Dosing: The patient had a trough drawn 05/12/19 @1730, which resulted in a trough of 23.4 (~11.5hrs from last administered dose from previous order). Pharmacy got a call from pt's RN notifying us of elevated trough. Pharmacy recommended to hold dose, but dose already hung. RN notified pharmacy that the dose had only been running ~10min, pharmacy recommended to not infuse remaining amount and stop administration. Will plan on drawing a trough in 24hrs to assess dosing at that time. Pt will likely need to have dose adjusted d/t decrease in CrCl. PLAN/RECOMMENDATIONS 1. HOLD vancomycin dosing at present due to elevated trough 2. Random vancomycin level 05/13/19 @1800 3. Pharmacy Service will continue to monitor and adjust dosing as required.
[2019-05-12] MEDS: oxyCODONE 5 MG Tablet 10 MG PO (16:12)
[2019-05-12 17:16] LABS: Bedside Glucose 265 mg/dL (70-110)
[2019-05-12 18:16] LABS: Vancomycin, Trough Level 23.4 ug/mL (5.0-15.0)
[2019-05-12 23:10] LABS: Bedside Glucose 223 mg/dL (70-110)
[2019-05-13] VITALS (11 sets, daily range): BP systolic 141–163; BP diastolic 66–86; PULSE 72–78; RESP 18–23; TEMP 36.6–36.9; O2SAT 94–98
[2019-05-13 03:37] LABS: Urine Sodium 52 mmol/L (Not Establ.)
[2019-05-13 06:09] LABS: Anion Gap 11 (5-15); BUN 37 mg/dL (7-18); BUN/Creat Ratio 13.2 RATIO (10-20); Chloride 113 mmol/L (98-107); EST Glomerular Filtration Rate 24 mL/min (>60); Est Glom Filt Rate - Afr Amer 30 mL/min (>60); Estimated Creatinine Clearance 30.52 ml/min; Glucose 237 mg/dL (74-106); Phosphorus 3.7 mg/dL (2.5-4.9); Potassium 4.8 mmol/L (3.5-5.1); Sodium Level 141 mmol/L (136-145)
[2019-05-13] MEDS: Insulin Lispro 100 UNIT/ML INSULN.PEN SC ×3 (06:37→18:27)
[2019-05-13] MEDS: metroNIDAZOLE 500 MG Tablet PO (06:37)
[2019-05-13] MEDS: Morphine 4 MG/ML Syringe IV ×3 (06:38→21:33)
[2019-05-13 06:55] LABS: Bedside Glucose 218 mg/dL (70-110)
--- NOTE | 2019-05-13 07:00 | PCM.PROGNOTE ---
Patient Problems: Active and Suspected Problems Diabetic infection of left foot (Acute) DEAN (acute kidney injury) (Acute) Severe sepsis (Acute) Elevated troponin (Acute) Dehydration (Acute) Diabetic hyperosmolar non-ketotic state (Acute) Peripheral vascular disease (Suspected) Subjective: This 64 year old male with multiple comorbidities was seen bedside POD #3 left foot debridement of non viable soft tissue and bone including first and second ray resections. He denies fever, chills, nausea, vomiting. He reports his foot is less painful today and is stiff. He is taking less pain medication. - Physical Exam General: Alert, Oriented x3, Cooperative Extremities: No cyanosis, Capillary Refill Less than 3 Seconds, No Calf Tenderness - Negative Rangel, Diminished Peripheral Pulses - Palpable PT left, Edema - Mild to bilateral lower extremities with varicosities, Tenderness - Open wound manipulation, - - Decreased ankle dorsiflexion with the knee extended. Exam is limited due to foot pain while performing this exam. Skin: Ulcer/ Wound - No purulence on expression or alfred necrosis. There is no odor. There is no streaking. The erythema to the ankle level has resolved. The open tissue resection amputation site is a mix of granulation tissue, fibrous, biofilm, slough, and devitalized tendon and subcutaneous tissue with exposed bone resections. Hemostasis is controlled and there is decreased drainage noted. The peripheral skin is hairless and atrophic on the left foot Musculoskeletal: No Tenderness to Palpation of Joints or Extremities, Muscle Wasting, - - Open first and second ray resection left lower extremity. Active range of motion digits noted foot. Compartments are soft to palpate left lower extremity Neurological: - - Lack of normal epicritic sensation light touch Psych/Mental Status: Normal Affect, Appropriate Vital Signs Temp Pulse Resp BP Pulse Ox 98.1 F 78 18 154/66 H 94 05/13/19 03:05 05/13/19 06:33 05/13/19 06:33 05/13/19 06:33 05/13/19 03:05 Oxygen Delivery Method Room Air Weight: 110.9 kg Body Mass Index (BMI) 32.2 Finger Stick Blood Glucose 600 Intake and Output for Last 24 Hours 05/11/19 05/12/19 05/13/19 23:59 23:59 23:59 Intake Total 6877.27 / 6877.27 5320.63 / 5620.63 1109.17 / 1109.17 Output Total 650 / 650 2355 / 2705 990 / 990 Balance 6227.27 / 6227.27 2965.63 / 2915.63 119.17 / 119.17 Microbiology Past 72 Hours 05/10/19 19:11 Gram Stain - Final Tissue - Other Wound Culture - Preliminary GPC Poss Enterococcus sp Alpha hemolytic organism 05/10/19 05:40 Gram Stain - Final Wound Abcess - Left Foot Wound Culture - Preliminary Klebsiella oxytoca Gram positive veronica Anaerobic Culture - Preliminary Checking for anaerobes, further studies to follow. 05/10/19 19:11 Gram Stain - Final Biopsy - Other Wound Culture - Preliminary Gram positive organism 05/10/19 05:17 Blood Culture - Preliminary Blood Culture (Wb) - Right Forearm Alpha Hemolytic Streptococcus 05/10/19 05:20 Blood Culture - Preliminary Blood Culture (Wb) - Left Forearm Alpha Hemolytic Streptococcus 05/10/19 05:40 Urine Culture - Final Urine, Clean Catch Mixed Gram Pos & Gram Neg Org Laboratory Tests Past 24 Hrs 05/12/19 05/12/19 05/13/19 05:10 17:30 02:40 Sodium 137 Potassium 4.5 Chloride 110 H Carbon Dioxide 17.0 L Anion Gap 10 BUN 26 H Creatinine 2.39 H Estim Creat Clear Calc 35.75 Est GFR (MDRD) Af Amer 36 L Est GFR (MDRD) Non-Af 29 L BUN/Creatinine Ratio 10.9 Glucose 233 H Calcium 7.9 L Phosphorus Total Creatine Kinase 1653 H Ur Random Sodium Urine Creatinine 22.70 Vancomycin Trough 23.4 H 05/13/19 05/13/19 02:40 05:23 Sodium 141 Potassium 4.8 Chloride 113 H Carbon Dioxide 17.0 L Anion Gap 11 BUN 37 H Creatinine 2.80 H Estim Creat Clear Calc 30.52 Est GFR (MDRD) Af Amer 30 L Est GFR (MDRD) Non-Af 24 L BUN/Creatinine Ratio 13.2 Glucose 237 H Calcium 8.0 L Phosphorus 3.7 Total Creatine Kinase Ur Random Sodium 52 Urine Creatinine Vancomycin Trough POC Glucose 05/13/19 05/12/19 05/12/19 06:36 21:29 17:03 POC Glucose 218 H 223 H 265 H 05/12/19 05/12/19 11:25 06:50 POC Glucose 309 H 222 H Medical Necessity - Tobacco Use Smoking Status: Current every day smoker Tobacco Use: Cigarettes Assessment/Plan All Active Problems Diabetic infection of left foot (Acute) DEAN (acute kidney injury) (Acute) Severe sepsis (Acute) Elevated troponin (Acute) Dehydration (Acute) Diabetic hyperosmolar non-ketotic state (Acute) Left diabetic foot infection with associated severe sepsis and osteomyelitis now POD #3 left soft tissue and bone debridement including open first and second ray resection Bacteremia Uncontrolled diabetes with neuropathy Lower extremity edema Other comorbidities I reviewed and discussed his case. He is afebrile and his vitals are stable otherwise. It is noted he has bacteremia. He continues on IV Rocephin at this time to the management of infectious disease. Clinically, the infection status is stabilizing to the foot now that he is s/p. This will be monitored close for complete infection resolution and tissue demarcation to determine the level of limb salvage. He understands a transmetatarsal amputation is likely after the tissues demarcates next week. To remain non weightbearing to left lower extremity with surgical shoe. Medical management and DVT prophylaxis per primary team is appreciated. I will continue to follow him close while in house. Please do not hesitate to call if you have any questions. Irene Claudio DPM, FAC[facility] [phone]
[2019-05-13] MEDS: Ascorbic Acid 500 MG Tablet PO ×2 (08:52→18:26)
[2019-05-13] MEDS: Multivitamins,Therapeutic Tablet 1 TABLET PO (08:52)
[2019-05-13] MEDS: Calcium (Elemental) 500 MG Tablet PO (08:52)
[2019-05-13] MEDS: Enoxaparin 40 MG/0.4 ML Syringe SC (08:53)
[2019-05-13] MEDS: Docusate Sodium 100 MG Capsule PO ×2 (08:53→21:57)
[2019-05-13] MEDS: Famotidine 20 MG Tablet PO ×2 (08:54→21:57)
[2019-05-13] MEDS: Lisinopril 10 MG Tablet PO (08:55)
--- NOTE | 2019-05-13 10:19 | PCM.PN.ID ---
Patient Problems: Active and Suspected Problems Diabetic infection of left foot (Acute) DEAN (acute kidney injury) (Acute) Severe sepsis (Acute) Elevated troponin (Acute) Dehydration (Acute) Diabetic hyperosmolar non-ketotic state (Acute) Peripheral vascular disease (Suspected) Subjective: Still some chills/sweats, no fever, no abd pain - Physical Exam General: Alert, Cooperative, No apparent distress Lungs: Clear to auscultation, Normal air movement Cardiovascular: Regular rate, Regular Rhythm Abdomen: Soft, Non Tender, Non-Distended Skin: Ulcer/ Wound - foot wrapped Vital Signs Temp Pulse Resp BP Pulse Ox 98.5 F 75 18 141/78 H 95 05/13/19 08:48 05/13/19 08:48 05/13/19 08:48 05/13/19 08:48 05/13/19 08:48 Oxygen Delivery Method Room Air Weight: 110.9 kg Body Mass Index (BMI) 32.2 Finger Stick Blood Glucose 600 Intake and Output for Last 24 Hours 05/11/19 05/12/19 05/13/19 23:59 23:59 23:59 Intake Total 6877.27 / 6877.27 5320.63 / 5620.63 2114.17 / 2114.17 Output Total 650 / 650 2355 / 2705 990 / 990 Balance 6227.27 / 6227.27 2965.63 / 2915.63 1124.17 / 1124.17 Microbiology Past 72 Hours 05/10/19 19:11 Gram Stain - Final Biopsy - Other Wound Culture - Preliminary Alpha hemolytic organism Anaerobic Culture - Preliminary Checking for anaerobes, further studies to follow. 05/10/19 19:11 Gram Stain - Final Tissue - Other Wound Culture - Preliminary Enterococcus faecalis Alpha hemolytic organism Anaerobic Culture - Preliminary Checking for anaerobes, further studies to follow. 05/10/19 05:20 Blood Culture - Final Blood Culture (Wb) - Left Forearm Alpha Hemolytic Streptococcus 05/10/19 05:17 Blood Culture - Final Blood Culture (Wb) - Right Forearm Streptococcus constellatus pha 05/10/19 05:40 Gram Stain - Final Wound Abcess - Left Foot Wound Culture - Preliminary Klebsiella oxytoca Alpha hemolytic organism Anaerobic Culture - Preliminary Checking for anaerobes, further studies to follow. 05/11/19 08:47 Blood Culture - Preliminary Blood Culture (Wb) - Left Hand No growth in 48 hours. 05/11/19 08:40 Blood Culture - Preliminary Blood Culture (Wb) - Right Hand No growth in 48 hours. 05/10/19 05:40 Urine Culture - Final Urine, Clean Catch Mixed Gram Pos & Gram Neg Org Laboratory Tests Past 24 Hrs 05/12/19 05/12/19 05/13/19 05:10 17:30 02:40 Sodium 137 Potassium 4.5 Chloride 110 H Carbon Dioxide 17.0 L Anion Gap 10 BUN 26 H Creatinine 2.39 H Estim Creat Clear Calc 35.75 Est GFR (MDRD) Af Amer 36 L Est GFR (MDRD) Non-Af 29 L BUN/Creatinine Ratio 10.9 Glucose 233 H Calcium 7.9 L Phosphorus Total Creatine Kinase 1653 H Ur Random Sodium Urine Creatinine 22.70 Vancomycin Trough 23.4 H 05/13/19 05/13/19 02:40 05:23 Sodium 141 Potassium 4.8 Chloride 113 H Carbon Dioxide 17.0 L Anion Gap 11 BUN 37 H Creatinine 2.80 H Estim Creat Clear Calc 30.52 Est GFR (MDRD) Af Amer 30 L Est GFR (MDRD) Non-Af 24 L BUN/Creatinine Ratio 13.2 Glucose 237 H Calcium 8.0 L Phosphorus 3.7 Total Creatine Kinase Ur Random Sodium 52 Urine Creatinine Vancomycin Trough POC Glucose 05/13/19 05/12/19 05/12/19 06:36 21:29 17:03 POC Glucose 218 H 223 H 265 H 05/12/19 11:25 POC Glucose 309 H Medical Necessity - Tobacco Use Smoking Status: Current every day smoker Tobacco Use: Cigarettes Route of nutrition/ use of supplements: [] Nutritional Intake: [] IV Site: [] Dyer Catheter: [] - Assessment/Plan Antibiotics: [] Assessment/Plan: [] Active and Suspected Problems Diabetic infection of left foot (Acute) 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 Staph aureus pcr was neg from foot. Bcx x2 (+) alpha strep. Surg cxs with enterococcus, strep, klebs, GPR. TTE with no veg seen. Wbc, Cr, and lactate improved. No fever. Now s/p I&D 05/[address] Claudio. Worsening DEAN. Checking urine eos, may need neph eval. Will narrow abx to unasyn now that susc are back. Will follow
[2019-05-13] MEDS: 0.9% NaCl Peripheral Flush Adult/Peds IV ×3 (10:57→21:36)
[2019-05-13 11:30] LABS: Bedside Glucose 313 mg/dL (70-110)
--- NOTE | 2019-05-13 12:26 | PCM.PROGNOTE ---
Patient Problems: Active and Suspected Problems Diabetic infection of left foot (Acute) DEAN (acute kidney injury) (Acute) Severe sepsis (Acute) Elevated troponin (Acute) Dehydration (Acute) Diabetic hyperosmolar non-ketotic state (Acute) Peripheral vascular disease (Suspected) Subjective: Ongoing heavy sweats. Severe pain with any slight movement of the left foot. Pt agreeable to further amputation. No fever/chills. No N/V/D. Blood cultures now clear @ 48 hours. CP, palp. - Physical Exam General: Alert, Oriented x3, Cooperative HEENT: Atraumatic, PERRLA, EOMI, Normocephalic Neck: Supple, No JVD, Negative Carotid Bruits Lungs: Clear to auscultation, Normal air movement Cardiovascular: Regular rate, No murmurs Abdomen: Bowel Sounds Present, Soft, Non Tender Extremities: No edema, Capillary Refill Less than 3 Seconds Skin: No rashes, No breakdown Musculoskeletal: - - LLE prior 1st/2nd toe amputation. Wound dressed. Neurological: Cranial nerves II-XII grossly intact Psych/Mental Status: Normal Affect, Appropriate, Alert and oriented to time, place, person, mood and affect Vital Signs Temp Pulse Resp BP Pulse Ox 98.5 F 75 18 141/78 H 95 05/13/19 08:48 05/13/19 11:00 05/13/19 08:48 05/13/19 08:48 05/13/19 08:48 Oxygen Delivery Method Room Air Weight: 244 lb 7.882 oz Body Mass Index (BMI) 32.2 Finger Stick Blood Glucose 600 Intake and Output for Last 24 Hours 05/11/19 05/12/19 05/13/19 23:59 23:59 23:59 Intake Total 6877.27 / 6877.27 5320.63 / 5620.63 2114.17 / 2114.17 Output Total 650 / 650 2355 / 2705 990 / 990 Balance 6227.27 / 6227.27 2965.63 / 2915.63 1124.17 / 1124.17 Microbiology Past 72 Hours 05/10/19 19:11 Gram Stain - Final Biopsy - Other Wound Culture - Preliminary Alpha hemolytic organism Anaerobic Culture - Preliminary Checking for anaerobes, further studies to follow. 05/10/19 19:11 Gram Stain - Final Tissue - Other Wound Culture - Preliminary Enterococcus faecalis Alpha hemolytic organism Anaerobic Culture - Preliminary Checking for anaerobes, further studies to follow. 05/10/19 05:20 Blood Culture - Final Blood Culture (Wb) - Left Forearm Alpha Hemolytic Streptococcus 05/10/19 05:17 Blood Culture - Final Blood Culture (Wb) - Right Forearm Streptococcus constellatus pha 05/10/19 05:40 Gram Stain - Final Wound Abcess - Left Foot Wound Culture - Preliminary Klebsiella oxytoca Alpha hemolytic organism Anaerobic Culture - Preliminary Checking for anaerobes, further studies to follow. 05/11/19 08:47 Blood Culture - Preliminary Blood Culture (Wb) - Left Hand No growth in 48 hours. 05/11/19 08:40 Blood Culture - Preliminary Blood Culture (Wb) - Right Hand No growth in 48 hours. 05/10/19 05:40 Urine Culture - Final Urine, Clean Catch Mixed Gram Pos & Gram Neg Org Laboratory Tests Past 24 Hrs 05/12/19 05/12/19 05/13/19 05:10 17:30 02:40 Eos Smear Total Cells Sodium 137 Potassium 4.5 Chloride 110 H Carbon Dioxide 17.0 L Anion Gap 10 BUN 26 H Creatinine 2.39 H Estim Creat Clear Calc 35.75 Est GFR (MDRD) Af Amer 36 L Est GFR (MDRD) Non-Af 29 L BUN/Creatinine Ratio 10.9 Glucose 233 H Calcium 7.9 L Phosphorus Total Creatine Kinase 1653 H Ur Random Sodium Urine Creatinine 22.70 Vancomycin Trough 23.4 H 05/13/19 05/13/19 05/13/19 02:40 05:23 10:50 Eos Smear Total Cells Pending Sodium 141 Potassium 4.8 Chloride 113 H Carbon Dioxide 17.0 L Anion Gap 11 BUN 37 H Creatinine 2.80 H Estim Creat Clear Calc 30.52 Est GFR (MDRD) Af Amer 30 L Est GFR (MDRD) Non-Af 24 L BUN/Creatinine Ratio 13.2 Glucose 237 H Calcium 8.0 L Phosphorus 3.7 Total Creatine Kinase Ur Random Sodium 52 Urine Creatinine Vancomycin Trough POC Glucose 05/13/19 05/13/19 05/12/19 11:26 06:36 21:29 POC Glucose 313 H 218 H 223 H 05/12/19 17:03 POC Glucose 265 H Medical Necessity - Tobacco Use Smoking Status: Current every day smoker Tobacco Use: Cigarettes Assessment/Plan All Active Problems Diabetic infection of left foot (Acute) DEAN (acute kidney injury) (Acute) Severe sepsis (Acute) Elevated troponin (Acute) Dehydration (Acute) Diabetic hyperosmolar non-ketotic state (Acute) 1. Acute severe sepsis, bacteremia, 2/2 LLE diabetic foot wound - continue Ampicillin. Blood cx now negative. echo without valvular involvement. WBC improved. Plan for further amputation next week. Dr. Claudio/Pina/Lawson following. Cultures with E faecalis, K oxytoca, S constellatus. 2. DMt2 with poor control. A1C 13.3. Titrate insulin to response. 3. DEAN - worsening renal function. C/s Dr. Marsh. 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 4. NSTEMI - initial indeterminate trop trended down, no CP, tele changes. Echo with some wall motion abnormalities, EF 55%, St1 diastolic dysfxn. 5. Acute rhabdomyolysis - CK trending down. 6. Hyponatremia resolved. 7. HTN stable This patient was seen by Filiberto Camejo PA-C under the supervision of Doctor Garcia.
--- NOTE | 2019-05-13 13:33 | CASEMGMT ---
ROBBIN checked with patient to see if he spoke with his sister about the QIT program. He said he gave her the information and she will read over it. He asked if SW could give him a new list of nursing homes as he thinks his son accidentally took the other copy. ROBBIN gave him a new list and asked him to at least pick 3 if not more as it is often difficult to get patients on pending Medicaid into nursing homes. ROBBIN also told him some of the facilities want money up front. ROBBIN will work on finding out which ones for sure so he knows this ahead of time. Kylah FRANZ MSW
--- NOTE | 2019-05-13 14:18 | PCM.CONS.R ---
Consultation - Renal 05/13/19 PCP/ Referring MD: Requesting physician: [] Primary care physician: No Primary Care Phys Reason for Consultation:: DEAN - History of Present Illness History of Present Illness: The patient is a 64 year old M who was admitted to [facility] by squad on 05/10 for fall at home with diabetic left foot ulcer and lightheadedness. He had complaints of pain in LLE, collapsed at home. He had a foot callous for several months that turned into a blister and ulcer on bottom of left foot. He was unable to walk due to pain. He was seen in ER on 04/27/19 and discharged with oral antibiotics clindamycin since he signed out AMA. He lives alone at home and takes poor care of himself. He has not been taking his medication for several months and did not see a doctor for several years due to loss of insurance. He is currently on disability. He had a WBC of 23 on admit improved to 12.3 on antibiotics. His hgb A1C was 13.3 with sugar at 896 on admit. His creatinine was 1.33 on 05/10 improved to 0.52 on 05/10/19 then progressed to 1.16 to 2.22 on 05/11, 2.39 on 05/13. He had a hypotensive episode given fluids on 05/10. CPK was 4362 improved to 1653. He had no iv contrast studies. He is on lisinopril. He has been on antibiotics with vanco, flagyl, pip/tazo, and ceftriaxzone today. He has sepsis with alpha strep followed by ID. He complains of foul odor in urine. He admits to urinary hesitancy, dribbling, weak stream. He had his left great toe and second toe amputated with further debridement and amputation scheduled for next week. He denied CP, SOB, palpitations, or syncope. Denied nausea, vomiting, anorexia, fever or chills. PMH for DM2, neuropathy, HTN. Denied heart disease, stroke, TN. - Allergies Allergies: Allergies No Known Allergies Allergy (Verified 06/23/17 15:08) - Current Medications Current Medications: Current Medications Acetaminophen (Tylenol) 650 mg PO Q6H PRN PRN PRN Reason: Mild pain 1-3/Temp > 100.7 F Albuterol Sulfate (Ventolin Aerosols) 2.5 mg INHALATION Q2H PRN PRN PRN Reason: SOB/Wheezing Ascorbic [facility]itamin C) [facility] Last Admin: 05/13/19 08:52 Dose: 500 mg Documented by: Calcium Carbonate (Os-Ladarius 500) 500 mg PO DAILYCM [facility] Last Admin: 05/13/19 08:52 Dose: 500 mg Documented by: Dextrose (D50w Syringe) 0 gm IV X1 PRN; Protocol PRN Reason: Hypoglycemia Docusate Sodium (Colace) 100 mg PO BID [facility] Last Admin: 05/13/19 08:53 Dose: 100 mg Documented by: Enoxaparin Sodium (Lovenox) 40 mg SC DAILY@1000 [facility] Last Admin: 05/13/19 08:53 Dose: 40 mg Documented by: Famotidine (Pepcid) 20 mg PO BID [facility] Last Admin: 05/13/19 08:54 Dose: 20 mg Documented by: Glucagon () 1 mg IM .X1 PRN PRN Reason: Hypoglycemia Potassium Chloride 10 meq/ (Sodium Chloride) 1,005 mls @ 175 mls/hr IV .[id number] [facility] Last Admin: 05/13/19 09:30 Dose: 175 mls/hr Documented by: Sodium Chloride () 250 mls @ 15 mls/hr IV .[id number] PRN PRN Reason: SALINE FLUSH Ampicillin Sodium/Sulbactam (Sodium 3 gm/ Sodium Chloride) 112 mls @ 150 mls/hr IV Q12 [facility] Last Admin: 05/13/19 10:57 Dose: 150 mls/hr Documented by: Insulin Glargine (Lantus (Bkc)) 20 units SC QHS [facility] Last Admin: 05/12/19 21:31 Dose: 20 units Documented by: Insulin Glargine (Lantus (Bkc)) 42 units SC BREAKFAST [facility] Last Admin: 05/13/19 08:51 Dose: 42 units Documented by: Insulin Human Lispro (Humalog Kwikpen (Bk)) 0 unit SC TIDAC [facility]; Protocol Last Admin: 05/13/19 12:19 Dose: 9 u Documented by: Magnesium Hydroxide (Milk Of Magnesia) 30 ml PO DAILY PRN PRN PRN Reason: Constipation Melatonin (Melatonin) 3 mg PO QHS PRN PRN PRN Reason: INSOMNIA Last Admin: 05/10/19 22:52 Dose: 3 mg Documented by: Morphine Sulfate () 4 mg IV Q3H PRN PRN PRN Reason: Severe Pain (7-10/10) Last Admin: 05/13/19 13:45 Dose: 4 mg Documented by: Multivitamins (Multivitamin) 1 tablet PO DAILY@0800 [facility] Last Admin: 05/13/19 08:52 Dose: 1 tablet Documented by: Nicotine (Nicoderm Cq (Pbkc)) 21 mg TRANSDERM. DAILY [facility] Last Admin: 05/13/19 08:54 Dose: 21 mg Documented by: Nitroglycerin (Nitrostat) 0.4 mg SUBLINGUAL Q5M PRN PRN Reason: CARDIAC/CHEST PAIN Nutritional Formula (Brett - Esmeralda Flavor) [facility] Last Admin: 05/13/19 08:50 Dose: 1 packet Documented by: Ondansetron HCl (Zofran) 4 mg IV Q8H PRN PRN PRN Reason: NAUSEA/VOMITING Oxycodone HCl (Oxyir) 10 mg PO Q4H PRN PRN PRN Reason: Moderate Pain (4-6/10) Last Admin: 05/12/19 16:12 Dose: 10 mg Documented by: Prochlorperazine Edisylate (Compazine Iv) 5 mg IV Q4H PRN PRN PRN Reason: Breakthrough Nausea/Vomiting Sodium Chloride () 10 - 40 ml IV UD PRN PRN Reason: SALINE FLUSH Last Admin: 05/13/19 13:45 Dose: 10 ml Documented by: Zinc Sulfate (Zinc Sulfate) [facility] Last Admin: 05/13/19 08:53 Dose: 220 mg Documented by: - 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 Denies: Anorexia, Chills, Fever Eyes: Denies: Blurred vision HEENT: Denies: Head Aches Cardiovascular: Reports: - - collapsed, fell at home. Denies: Chest Pain, Edema, Palpitations, Syncope Respiratory: Denies: Cough, Shortness of Breath Gastrointestinal: Denies: Abdominal Pain, Constipation, Diarrhea, Nausea, Vomiting Genitourinary: Reports: Hesitancy, Retention, Urgency, - - dribbling. Denies: Dysuria Musculoskeletal: Reports: - - left foot pain Skin: Reports: Wounds - left foot wrapped, - - skin abrasions on face, knees, elbows Patient Problems: Active and Suspected Problems Diabetic infection of left foot (Acute) DEAN (acute kidney injury) (Acute) Severe sepsis (Acute) Elevated troponin (Acute) Dehydration (Acute) Diabetic hyperosmolar non-ketotic state (Acute) Peripheral vascular disease (Suspected) - Physical Exam General: Alert, Oriented x3, Cooperative HEENT: PERRLA Oral: Moist Mucosa Neck: Supple Lungs: Clear to auscultation, Normal air movement Cardiovascular: Regular rate Abdomen: Bowel Sounds Present, Soft, Non Tender, Non-Distended, Obese Extremities: No edema, - - left foot wrapped Skin: Ulcer/ Wound - left foot, Excoriated, - - abrasions bilateral knees, elbow, chin Musculoskeletal: No Muscle Wasting, - - mild charcot joint on xray Lymphatic: No Cervical, Supraclavicular, or Inguinal Adenopathy Neurological: Cranial nerves II-XII grossly intact Psych/Mental Status: Normal Affect, Appropriate, Alert and oriented to time, place, person, mood and affect Vital Signs Temp Pulse Resp BP Pulse Ox 98.5 F 75 18 141/78 H 95 05/13/19 08:48 05/13/19 11:00 05/13/19 08:48 05/13/19 08:48 05/13/19 08:48 Oxygen Delivery Method Room Air Weight: 110.9 kg Body Mass Index (BMI) 32.2 Finger Stick Blood Glucose 600 Intake and Output for Last 24 Hours 05/11/19 05/12/19 05/13/19 23:59 23:59 23:59 Intake Total 6877.27 / 6877.27 5320.63 / 5620.63 4709.17 / 4709.17 Output Total 650 / 650 2355 / 2705 2915 / 2915 Balance 6227.27 / 6227.27 2965.63 / 2915.63 1794.17 / 1794.17 Microbiology Past 72 Hours 05/10/19 19:11 Gram Stain - Final Biopsy - Other Wound Culture - Preliminary Alpha hemolytic organism Anaerobic Culture - Preliminary Checking for anaerobes, further studies to follow. 05/10/19 05:40 Gram Stain - Final Wound Abcess - Left Foot Wound Culture - Preliminary Klebsiella oxytoca Alpha hemolytic organism Anaerobic Culture - Preliminary Checking for anaerobes, further studies to follow. 05/10/19 19:11 Gram Stain - Final Tissue - Other Wound Culture - Preliminary Enterococcus faecalis Alpha hemolytic organism Anaerobic Culture - Preliminary Checking for anaerobes, further studies to follow. 05/10/19 05:20 Blood Culture - Final Blood Culture (Wb) - Left Forearm Alpha Hemolytic Streptococcus 05/10/19 05:17 Blood Culture - Final Blood Culture (Wb) - Right Forearm Streptococcus constellatus pha 05/11/19 08:47 Blood Culture - Preliminary Blood Culture (Wb) - Left Hand No growth in 48 hours. 05/11/19 08:40 Blood Culture - Preliminary Blood Culture (Wb) - Right Hand No growth in 48 hours. 05/10/19 05:40 Urine Culture - Final Urine, Clean Catch Mixed Gram Pos & Gram Neg Org Laboratory Tests Past 24 Hrs 05/12/19 05/12/19 05/13/19 05:10 17:30 02:40 Eos Smear Total Cells Sodium 137 Potassium 4.5 Chloride 110 H Carbon Dioxide 17.0 L Anion Gap 10 BUN 26 H Creatinine 2.39 H Estim Creat Clear Calc 35.75 Est GFR (MDRD) Af Amer 36 L Est GFR (MDRD) Non-Af 29 L BUN/Creatinine Ratio 10.9 Glucose 233 H Calcium 7.9 L Phosphorus Total Creatine Kinase 1653 H Ur Random Sodium Urine Creatinine 22.70 Vancomycin Trough 23.4 H 05/13/19 05/13/19 05/13/19 02:40 05:23 10:50 Eos Smear Total Cells Pending Sodium 141 Potassium 4.8 Chloride 113 H Carbon Dioxide 17.0 L Anion Gap 11 BUN 37 H Creatinine 2.80 H Estim Creat Clear Calc 30.52 Est GFR (MDRD) Af Amer 30 L Est GFR (MDRD) Non-Af 24 L BUN/Creatinine Ratio 13.2 Glucose 237 H Calcium 8.0 L Phosphorus 3.7 Total Creatine Kinase Ur Random Sodium 52 Urine Creatinine Vancomycin Trough POC Glucose 05/13/19 05/13/19 05/12/19 11:26 06:36 21:29 POC Glucose 313 H 218 H 223 H 05/12/19 17:03 POC Glucose 265 H Assessment/Plan All Active Problems Diabetic infection of left foot (Acute) DEAN (acute kidney injury) (Acute) Severe sepsis (Acute) Elevated troponin (Acute) Dehydration (Acute) Diabetic hyperosmolar non-ketotic state (Acute) 1. DEAN suspect ATN from sepsis, hypotension, rhabdo. Nonoliguric with creatinine up to 2.8. Evaluate for urinary retention. Check renal US, bladder scan. may need singleton to CD. STart flomax. Check FENA. Continue iv fluids. 2. Diabetic foot ulcer s/p toe amputation, debridement 3. Sepsis on iv antibx 4. HTN stable 5. DM2 with medical noncompliance due to financial reasons. 6. Rhabdomyolysis 7. weakness, debilitation 6. mild Charcot joint found on xray with diabetic neuropathy.
--- NOTE | 2019-05-13 15:10 | US_ITS ---
STUDY: RENAL ULTRASOUND - COMPLETE REASON FOR EXAM: Male, 64 years old. Acute renal failure TECHNIQUE: Ultrasound evaluation of the kidneys was performed with real-time and static foley-scale imaging. COMPARISON: None. FINDINGS: RIGHT KIDNEY: Normal location of the right kidney, which is normal in size. The right kidney measures 14.4 x 6.3 x 7.2 cm. There is a normal cortex of the right kidney. The renal cortex measures cm. There is no right renal mass or cyst. There are no right renal calculi. There is no right hydronephrosis. DISTAL RIGHT URETER: There is non-visualization of the distal right ureter. LEFT KIDNEY: Normal location of the left kidney, which is normal in size. The left kidney measures 15.4 x 6.3 x 6.8 cm. There is a normal cortex of the left kidney. The renal cortex measures 1.6 cm. There is no left renal mass or cyst. There are no left renal calculi. There is no left hydronephrosis. DISTAL LEFT URETER: There is non-visualization of the distal left ureter. BLADDER: The urinary bladder is decompressed by a Dyer catheter. US/Kidney and Bladder IMPRESSION: Normal ultrasound of the kidneys. Electronically Signed: Melvin Boateng DO at 19:25 EDT Tel [phone], Service support ,
[2019-05-13 16:36] LABS: Bedside Glucose 273 mg/dL (70-110)
[2019-05-13 17:03] LABS: Bacteria 0 SEEN /hpf (None Seen); Red Blood Cells-Urine 0 SEEN /hpf (0-5); Squamous Epithelial Cells - UA 0 SEEN /hpf (0-5)
[2019-05-13 17:05] LABS: Mucous, Urine 0 SEEN /hpf (<or=2+)
[2019-05-13 17:12] LABS: Color, Urine Yellow (Yellow); Glucose, Dipstick 250 mg/dl (Normal); Ketone-Dipstick Negative (Negative); Leukocyte Esterase-Dipstick Negative /ul (Negative); Nitrite-Dipstick Negative (Negative); Occult Blood-Urine 50 /ul (Negative); Protein-Dipstick 15 mg/dl (Negative); Specific Gravity, Urine 1.005 (1.002-1.030); Urine Bilirubin Dipstick Negative (Negative); Urine Clarity Clear (Clear); Urine Sodium 65 mmol/L (Not Establ.); Urine Urobilinogen Normal (Normal)
[2019-05-13 17:20] LABS: White Blood Cells 0-5 SEEN /hpf (0-5)
[2019-05-13 17:24] LABS: Protein, Urine (Random) 14.1 mg/dL (<11.9)
[2019-05-13] MEDS: Tamsulosin HCl 0.4 MG Capsule PO (18:32)
[2019-05-13] MEDS: 0.9% NaCl IVPB Med Flush (250 mL) 15 ML IV (21:37)
[2019-05-13 22:05] LABS: Bedside Glucose 282 mg/dL (70-110)
[2019-05-14] VITALS (15 sets, daily range): BP systolic 142–169; BP diastolic 47–79; PULSE 66–78; RESP 16–20; TEMP 36.7–37.2; O2SAT 93–98
[2019-05-14 06:36] LABS: Absolute Lymphocyte Count 1.33 X10^3/uL (0.83-4.51); Absolute Neutrophil Count 9.3 X10^3/uL (2.0-7.7); Basophil# 0.09 X10^3/uL; Basophil% 0.7 % (0-1); Eosinophil# 0.19 X10^3/uL; Eosinophils% 1.6 % (0-5); Hematocrit 39.8 % (40-54); Hemoglobin 12.8 g/dL (13.0-16.5); Lymphocyte # 1.33 X10^3/ul (4.0); Lymphocyte % 11.1 % (19-41); Mean Corp Hgb Conc 32.2 g/dL (32-36); Mean Corpuscular Hgb 30.7 pg (27.0-32.0); Mean Corpuscular Volume 95.4 fL (80-94); Mean Platelet Vol. 10.3 fl (6.2-12.0); Monocyte# 0.87 X10^3/uL; Monocyte% 7.2 % (0-10); NRBC Flagged by Analyzer 0 % (0-5); Neutrophil # 9.32 X10^3/uL (2.7-7.7); Neutrophil % 77.7 % (47-70); Platelet Count 305 K/mm3 (150-450); RBC Distribution Width CV 12.5 % (11.6-14.6); RBC Distribution Width SD 44.5 fl (35.1-43.9); Red Blood Count 4.17 M/mm3 (4.6-6.2)
[2019-05-14 06:58] LABS: Anion Gap 11 (5-15); BUN 46 mg/dL (7-18); BUN/Creat Ratio 14.9 RATIO (10-20); Calcium,Total 8.3 mg/dL (8.5-10.1); Chloride 113 mmol/L (98-107); Creatinine, Serum 3.09 mg/dL (0.70-1.30); EST Glomerular Filtration Rate 22 mL/min (>60); Est Glom Filt Rate - Afr Amer 26 mL/min (>60); Estimated Creatinine Clearance 27.65 ml/min; Glucose 232 mg/dL (74-106); Potassium 4.7 mmol/L (3.5-5.1); Sodium Level 143 mmol/L (136-145)
[2019-05-14] MEDS: Insulin Lispro 100 UNIT/ML INSULN.PEN SC ×3 (07:02→16:41)
[2019-05-14 07:36] LABS: Bedside Glucose 221 mg/dL (70-110)
[2019-05-14] MEDS: 0.9% Normal Saline 1,000 ML 75 ML IV ×2 (08:02→21:16)
[2019-05-14] MEDS: Ascorbic Acid 500 MG Tablet PO ×2 (08:16→16:40)
[2019-05-14] MEDS: oxyCODONE 5 MG Tablet 10 MG PO (08:16)
[2019-05-14] MEDS: Multivitamins,Therapeutic Tablet 1 TABLET PO (08:16)
--- NOTE | 2019-05-14 08:40 | NURSING ---
Dressing to the left foot is D&I at this time. will discuss with Dr Claudio to see if she will be in to change dressing or if she would like this nurse to change the dressing today. pt denies much discomfort at this time. pt is currently up in chair with legs elevated.
[2019-05-14] MEDS: Famotidine 20 MG Tablet PO ×2 (10:44→21:04)
[2019-05-14] MEDS: Enoxaparin 40 MG/0.4 ML Syringe SC (10:44)
[2019-05-14] MEDS: Docusate Sodium 100 MG Capsule PO ×2 (10:45→21:04)
[2019-05-14] MEDS: Calcium (Elemental) 500 MG Tablet PO (11:17)
[2019-05-14 11:30] LABS: Bedside Glucose 340 mg/dL (70-110)
--- NOTE | 2019-05-14 11:36 | CASEMGMT ---
SW spoke with patient. He chose 3 nursing facilities. [facility], [facility], and [facility]. He did not have any particular order. SW will work on making referrals. Patient will be in hospital until mid next week at least. He is also being seen by Nephrology. All of his medical needs are not all completely known yet. For instance, he could possibly need dialysis and not sure what IV antibiotics if any he will be on at d/c. ROBBIN will make initial referral at least. Kylah FRANZ MSW
--- NOTE | 2019-05-14 12:13 | CASEMGMT ---
SW called [facility] with referral as well as faxed over referral. Await response from [facility]. Kylah FRANZ MSW
--- NOTE | 2019-05-14 12:24 | PCM.PN.REN ---
Patient Problems: Active and Suspected Problems Diabetic infection of left foot (Acute) DEAN (acute kidney injury) (Acute) Severe sepsis (Acute) Elevated troponin (Acute) Dehydration (Acute) Diabetic hyperosmolar non-ketotic state (Acute) Peripheral vascular disease (Suspected) Subjective: Patient denies nausea, vomiting, diarrhea. Denies any fever chills or shortness of breath. Dyer catheter inserted for urinary retention of 500 cc on bladder scan. Kidney ultrasound did not show hydronephrosis. Renal function continues to worsen with creatinine at 3.0 however may be plateauing. - Physical Exam General: Alert, Oriented x3, Cooperative, No apparent distress Neck: Supple Lungs: Clear to auscultation Cardiovascular: Regular rate Abdomen: Bowel Sounds Present, Soft, Non Tender, Non-Distended Extremities: No edema Skin: Ulcer/ Wound - left foot, Excoriated Musculoskeletal: No Muscle Wasting Psych/Mental Status: Normal Affect, Appropriate, Alert and oriented to time, place, person, mood and affect Vital Signs Temp Pulse Resp BP Pulse Ox 98.0 F 72 18 145/68 H 97 05/14/19 08:33 05/14/19 11:00 05/14/19 08:33 05/14/19 08:33 05/14/19 08:48 Oxygen Delivery Method Room Air Weight: 110.9 kg Body Mass Index (BMI) 32.2 Finger Stick Blood Glucose 600 Intake and Output for Last 24 Hours 05/12/19 05/13/19 05/14/19 23:59 23:59 23:59 Intake Total 5320.63 / 5620.63 7666.75 / 7666.75 1321.17 / 1321.17 Output Total 2355 / 2705 6155 / 6155 1300 / 1300 Balance 2965.63 / 2915.63 1511.75 / 1511.75 21.17 / 21.17 Microbiology Past 72 Hours 05/10/19 19:11 Gram Stain - Final Biopsy - Other Wound Culture - Preliminary Alpha Hemolytic Streptococcus Gram positive veronica Anaerobic Culture - Preliminary Checking for anaerobes, further studies to follow. 05/10/19 05:40 Gram Stain - Final Wound Abcess - Left Foot Wound Culture - Preliminary Klebsiella oxytoca Gram positive veronica Alpha Hemolytic Streptococcus Gram Positive Cocci Anaerobic Culture - Preliminary Checking for anaerobes, further studies to follow. 05/10/19 19:11 Gram Stain - Final Tissue - Other Wound Culture - Final Enterococcus faecalis Streptococcus sanguinis Actinomyces odontolyticus Anaerobic Culture - Preliminary Checking for anaerobes, further studies to follow. 05/10/19 05:20 Blood Culture - Final Blood Culture (Wb) - Left Forearm Alpha Hemolytic Streptococcus 05/10/19 05:17 Blood Culture - Final Blood Culture (Wb) - Right Forearm Streptococcus constellatus pha 05/11/19 08:47 Blood Culture - Preliminary Blood Culture (Wb) - Left Hand No growth in 48 hours. 05/11/19 08:40 Blood Culture - Preliminary Blood Culture (Wb) - Right Hand No growth in 48 hours. 05/10/19 05:40 Urine Culture - Final Urine, Clean Catch Mixed Gram Pos & Gram Neg Org Laboratory Tests Past 24 Hrs 05/13/19 05/13/19 05/13/19 16:50 16:50 16:50 WBC RBC Hgb Hct MCV MCH MCHC RDW Std Deviation RDW Coeff of Fatuma Plt Count MPV Immature Gran % (Auto) Neut % (Auto) Lymph % (Auto) [place] % (Auto) Eos % (Auto) Baso % (Auto) Absolute Neuts (auto) Absolute Lymphs (auto) Nucleated RBC % Sodium Potassium Chloride Carbon Dioxide Anion Gap BUN Creatinine Estim Creat Clear Calc Est GFR (MDRD) Af Amer Est GFR (MDRD) Non-Af BUN/Creatinine Ratio Glucose Calcium Urine Color Urine Clarity Urine pH Ur Specific [place] Urine Protein Urine Glucose (UA) Urine Ketones Urine Occult Blood Urine Nitrite Urine Bilirubin Urine Urobilinogen Ur Leukocyte Esterase Urine RBC Urine WBC Ur Squamous Epith Cells Urine Bacteria Urine Mucus Urine Myoglobin Pending U Random Total Protein 14.1 H Ur Random Sodium Urine Creatinine 19.70 05/13/19 05/13/19 05/14/19 16:50 16:50 05:45 WBC 12.0 H RBC 4.17 L Hgb 12.8 L Hct 39.8 L MCV 95.4 H MCH 30.7 MCHC 32.2 RDW Std Deviation 44.5 H RDW Coeff of Fatuma 12.5 Plt Count 305 MPV 10.3 Immature Gran % (Auto) 1.700 H Neut % (Auto) 77.7 H Lymph % (Auto) 11.1 L [place] % (Auto) 7.2 Eos % (Auto) 1.6 Baso % (Auto) 0.7 Absolute Neuts (auto) 9.3 H Absolute Lymphs (auto) 1.33 Nucleated RBC % 0 Sodium Potassium Chloride Carbon Dioxide Anion Gap BUN Creatinine Estim Creat Clear Calc Est GFR (MDRD) Af Amer Est GFR (MDRD) Non-Af BUN/Creatinine Ratio Glucose Calcium Urine Color Yellow Urine Clarity Clear Urine pH 6.0 Ur Specific [place] 1.005 Urine Protein 15 H Urine Glucose (UA) 250 H Urine Ketones Negative Urine Occult Blood 50 H Urine Nitrite Negative Urine Bilirubin Negative Urine Urobilinogen Normal Ur Leukocyte Esterase Negative Urine RBC 0 SEEN Urine WBC 0-5 SEEN Ur Squamous Epith Cells 0 SEEN Urine Bacteria 0 SEEN Urine Mucus 0 SEEN Urine Myoglobin U Random Total Protein Ur Random Sodium 65 Urine Creatinine 05/14/19 05:45 WBC RBC Hgb Hct MCV MCH MCHC RDW Std Deviation RDW Coeff of Fatuma Plt Count MPV Immature Gran % (Auto) Neut % (Auto) Lymph % (Auto) [place] % (Auto) Eos % (Auto) Baso % (Auto) Absolute Neuts (auto) Absolute Lymphs (auto) Nucleated RBC % Sodium 143 Potassium 4.7 Chloride 113 H Carbon Dioxide 19.0 L Anion Gap 11 BUN 46 H Creatinine 3.09 H Estim Creat Clear Calc 27.65 Est GFR (MDRD) Af Amer 26 L Est GFR (MDRD) Non-Af 22 L BUN/Creatinine Ratio 14.9 Glucose 232 H Calcium 8.3 L Urine Color Urine Clarity Urine pH Ur Specific [place] Urine Protein Urine Glucose (UA) Urine Ketones Urine Occult Blood Urine Nitrite Urine Bilirubin Urine Urobilinogen Ur Leukocyte Esterase Urine RBC Urine WBC Ur Squamous Epith Cells Urine Bacteria Urine Mucus Urine Myoglobin U Random Total Protein Ur Random Sodium Urine Creatinine POC Glucose 05/14/19 05/14/19 05/13/19 11:15 06:59 21:53 POC Glucose 340 H 221 H 282 H 05/13/19 16:30 POC Glucose 273 H Clinical Impression(s) from Imaging Studies Renal Ultrasound 05/13/19 15:10 IMPRESSION: Normal ultrasound of the kidneys. Electronically Signed: Melvin Boateng DO at 19:25 EDT Tel [phone], Service support , Medical Necessity - Tobacco Use Smoking Status: Current every day smoker Tobacco Use: Cigarettes Assessment/Plan All Active Problems Diabetic infection of left foot (Acute) DEAN (acute kidney injury) (Acute) Severe sepsis (Acute) Elevated troponin (Acute) Dehydration (Acute) Diabetic hyperosmolar non-ketotic state (Acute) 1. DEAN suspect ATN from sepsis, hypotension, rhabdo. Nonoliguric with creatinine up to 3.0. Renal US no hydro. Dyer placed for high residuals 500cc. Flomax started. No urgent indication to initiate dialysis today. Pt without uremic symptoms. 2. Diabetic foot ulcer s/p ray amputation, debridement 3. Sepsis on iv antibx followed. 4. HTN stable 5. DM2 poorly controlled due to medical noncompliance, infection 6. Rhabdomyolysis CPK improving 7. weakness, debilitation
--- NOTE | 2019-05-14 12:47 | PN_ITS ---
Patient Problems: Active and Suspected Problems Diabetic infection of left foot (Acute) DEAN (acute kidney injury) (Acute) Severe sepsis (Acute) Elevated troponin (Acute) Dehydration (Acute) Diabetic hyperosmolar non-ketotic state (Acute) Peripheral vascular disease (Suspected) Subjective: Pt has no fever/chills. No SOB/cough. Pain in the affected limb is unchanged. He is reluctantly tolerating the singleton, no discomfort currently. Output is clear yellow. He was retaining 500cc. - Physical Exam General: Alert, Oriented x3, Cooperative HEENT: Atraumatic, PERRLA, EOMI, Normocephalic Neck: Supple, No JVD, Negative Carotid Bruits Lungs: Clear to auscultation, Normal air movement Cardiovascular: Regular rate, No murmurs Abdomen: Bowel Sounds Present, Soft, Non Tender Extremities: No edema, Capillary Refill Less than 3 Seconds Skin: No rashes, No breakdown Musculoskeletal: No Tenderness to Palpation of Joints or Extremities, - - left distal leg wrapped. Neurological: Cranial nerves II-XII grossly intact Psych/Mental Status: Normal Affect, Appropriate, Alert and oriented to time, place, person, mood and affect Vital Signs Temp Pulse Resp BP Pulse Ox 98.0 F 72 18 145/68 H 97 05/14/19 08:33 05/14/19 11:00 05/14/19 08:33 05/14/19 08:33 05/14/19 08:48 Oxygen Delivery Method Room Air Weight: 244 lb 7.882 oz Body Mass Index (BMI) 32.2 Finger Stick Blood Glucose 600 Intake and Output for Last 24 Hours 05/12/19 05/13/19 05/14/19 23:59 23:59 23:59 Intake Total 5320.63 / 5620.63 7666.75 / 7666.75 1321.17 / 1321.17 Output Total 2355 / 2705 6155 / 6155 1300 / 1300 Balance 2965.63 / 2915.63 1511.75 / 1511.75 21. / .17 Microbiology Past 72 Hours 05/10/19 19:11 Gram Stain - Final Biopsy - Other Wound Culture - Preliminary Alpha Hemolytic Streptococcus Gram positive veronica Anaerobic Culture - Preliminary Checking for anaerobes, further studies to follow. 05/10/19 05:40 Gram Stain - Final Wound Abcess - Left Foot Wound Culture - Preliminary Klebsiella oxytoca Gram positive veronica Alpha Hemolytic Streptococcus Gram Positive Cocci Anaerobic Culture - Preliminary Checking for anaerobes, further studies to follow. 05/10/19 19:11 Gram Stain - Final Tissue - Other Wound Culture - Final Enterococcus faecalis Streptococcus sanguinis Actinomyces odontolyticus Anaerobic Culture - Preliminary Checking for anaerobes, further studies to follow. 05/10/19 05:20 Blood Culture - Final Blood Culture (Wb) - Left Forearm Alpha Hemolytic Streptococcus 05/10/19 05:17 Blood Culture - Final Blood Culture (Wb) - Right Forearm Streptococcus constellatus pha 05/11/19 08:47 Blood Culture - Preliminary Blood Culture (Wb) - Left Hand No growth in 48 hours. 05/11/19 08:40 Blood Culture - Preliminary Blood Culture (Wb) - Right Hand No growth in 48 hours. 05/10/19 05:40 Urine Culture - Final Urine, Clean Catch Mixed Gram Pos & Gram Neg Org Laboratory Tests Past 24 Hrs 05/13/19 05/13/19 05/13/19 16:50 16:50 16:50 WBC RBC Hgb Hct MCV MCH MCHC RDW Std Deviation RDW Coeff of Fatuma Plt Count MPV Immature Gran % (Auto) Neut % (Auto) Lymph % (Auto) [place] % (Auto) Eos % (Auto) Baso % (Auto) Absolute Neuts (auto) Absolute Lymphs (auto) Nucleated RBC % Sodium Potassium Chloride Carbon Dioxide Anion Gap BUN Creatinine Estim Creat Clear Calc Est GFR (MDRD) Af Amer Est GFR (MDRD) Non-Af BUN/Creatinine Ratio Glucose Calcium Urine Color Urine Clarity Urine pH Ur Specific [place] Urine Protein Urine Glucose (UA) Urine Ketones Urine Occult Blood Urine Nitrite Urine Bilirubin Urine Urobilinogen Ur Leukocyte Esterase Urine RBC Urine WBC Ur Squamous Epith Cells Urine Bacteria Urine Mucus Urine Myoglobin Pending U Random Total Protein 14.1 H Ur Random Sodium Urine Creatinine 19.70 05/13/19 05/13/19 05/14/19 16:50 16:50 05:45 WBC 12.0 H RBC 4.17 L Hgb 12.8 L Hct 39.8 L MCV 95.4 H MCH 30.7 MCHC 32.2 RDW Std Deviation 44.5 H RDW Coeff of Fatuma 12.5 Plt Count 305 MPV 10.3 Immature Gran % (Auto) 1.700 H Neut % (Auto) 77.7 H Lymph % (Auto) 11.1 L [place] % (Auto) 7.2 Eos % (Auto) 1.6 Baso % (Auto) 0.7 Absolute Neuts (auto) 9.3 H Absolute Lymphs (auto) 1.33 Nucleated RBC % 0 Sodium Potassium Chloride Carbon Dioxide Anion Gap BUN Creatinine Estim Creat Clear Calc Est GFR (MDRD) Af Amer Est GFR (MDRD) Non-Af BUN/Creatinine Ratio Glucose Calcium Urine Color Yellow Urine Clarity Clear Urine pH 6.0 Ur Specific [place] 1.005 Urine Protein 15 H Urine Glucose (UA) 250 H Urine Ketones Negative Urine Occult Blood 50 H Urine Nitrite Negative Urine Bilirubin Negative Urine Urobilinogen Normal Ur Leukocyte Esterase Negative Urine RBC 0 SEEN Urine WBC 0-5 SEEN Ur Squamous Epith Cells 0 SEEN Urine Bacteria 0 SEEN Urine Mucus 0 SEEN Urine Myoglobin U Random Total Protein Ur Random Sodium 65 Urine Creatinine 05/14/19 05:45 WBC RBC Hgb Hct MCV MCH MCHC RDW Std Deviation RDW Coeff of Fatuma Plt Count MPV Immature Gran % (Auto) Neut % (Auto) Lymph % (Auto) [place] % (Auto) Eos % (Auto) Baso % (Auto) Absolute Neuts (auto) Absolute Lymphs (auto) Nucleated RBC % Sodium 143 Potassium 4.7 Chloride 113 H Carbon Dioxide 19.0 L Anion Gap 11 BUN 46 H Creatinine 3.09 H Estim Creat Clear Calc 27.65 Est GFR (MDRD) Af Amer 26 L Est GFR (MDRD) Non-Af 22 L BUN/Creatinine Ratio 14.9 Glucose 232 H Calcium 8.3 L Urine Color Urine Clarity Urine pH Ur Specific [place] Urine Protein Urine Glucose (UA) Urine Ketones Urine Occult Blood Urine Nitrite Urine Bilirubin Urine Urobilinogen Ur Leukocyte Esterase Urine RBC Urine WBC Ur Squamous Epith Cells Urine Bacteria Urine Mucus Urine Myoglobin U Random Total Protein Ur Random Sodium Urine Creatinine POC Glucose 05/14/19 05/14/19 05/13/19 11:15 06:59 21:53 POC Glucose 340 H 221 H 282 H 05/13/19 16:30 POC Glucose 273 H Medical Necessity - Tobacco Use Smoking Status: Current every day smoker Tobacco Use: Cigarettes Assessment/Plan All Active Problems Diabetic infection of left foot (Acute) DEAN (acute kidney injury) (Acute) Severe sepsis (Acute) Elevated troponin (Acute) Dehydration (Acute) Diabetic hyperosmolar non-ketotic state (Acute) 1. Acute severe sepsis, bacteremia, 2/2 LLE diabetic foot wound - continue Ampicillin. Blood cx now negative. echo without valvular involvement. WBC improved. Plan for further amputation next week. Dr. Claudio/Pina/Lawson following. Cultures with E faecalis, K oxytoca, S constellatus. 2. DMt2 with poor control. A1C 13.3. Adjusted long acting insulin, depending on how he responds will plan to add mealtime short acting. 3. DEAN - 2/2 sepsis and urinary retention. Neph following. 500cc retained, singleton placed. Flomax started. Renal US is normal. Output is good. Trend. Gently IV fluids given. Will need voiding trial prior to DC. 4. NSTEMI - initial indeterminate trop trended down, no CP, tele changes. Echo with some wall motion abnormalities, EF 55%, St1 diastolic dysfxn. 5. Acute rhabdomyolysis - resolved. 6. Hyponatremia resolved. 7. HTN stable 8. Nicotine abuse - will complicate #1. Patch provided. DVT ppx: lovenox This patient was seen by Filiberto Camejo PA-C under the supervision of Doctor Garcia.
--- NOTE | 2019-05-14 13:28 | PCM.PN.ID ---
Patient Problems: Active and Suspected Problems Diabetic infection of left foot (Acute) DEAN (acute kidney injury) (Acute) Severe sepsis (Acute) Elevated troponin (Acute) Dehydration (Acute) Diabetic hyperosmolar non-ketotic state (Acute) Peripheral vascular disease (Suspected) Subjective: Feeling ok, singleton in place, no fever, no n/v/d. - Physical Exam General: Alert, Cooperative, No apparent distress Lungs: Clear to auscultation, Normal air movement Cardiovascular: Regular rate, Regular Rhythm Abdomen: Soft, Non Tender, Non-Distended Skin: Ulcer/ Wound - foot wrapped Vital Signs Temp Pulse Resp BP Pulse Ox 98.0 F 72 18 145/68 H 97 05/14/19 08:33 05/14/19 11:00 05/14/19 08:33 05/14/19 08:33 05/14/19 08:48 Oxygen Delivery Method Room Air Weight: 110.9 kg Body Mass Index (BMI) 32.2 Finger Stick Blood Glucose 600 Intake and Output for Last 24 Hours 05/12/19 05/13/19 05/14/19 23:59 23:59 23:59 Intake Total 5320.63 / 5620.63 7666.75 / 7666.75 2121.17 / 2121.17 Output Total 2355 / 2705 6155 / 6155 3125 / 3125 Balance 2965.63 / 2915.63 1511.75 / 1511.75 -1003.83 / -1003.83 Microbiology Past 72 Hours 05/10/19 19:11 Gram Stain - Final Biopsy - Other Wound Culture - Preliminary Alpha Hemolytic Streptococcus Gram positive veronica Anaerobic Culture - Preliminary Checking for anaerobes, further studies to follow. 05/10/19 05:40 Gram Stain - Final Wound Abcess - Left Foot Wound Culture - Preliminary Klebsiella oxytoca Gram positive veronica Alpha Hemolytic Streptococcus Gram Positive Cocci Anaerobic Culture - Preliminary Checking for anaerobes, further studies to follow. 05/10/19 19:11 Gram Stain - Final Tissue - Other Wound Culture - Final Enterococcus faecalis Streptococcus sanguinis Actinomyces odontolyticus Anaerobic Culture - Preliminary Checking for anaerobes, further studies to follow. 05/10/19 05:20 Blood Culture - Final Blood Culture (Wb) - Left Forearm Alpha Hemolytic Streptococcus 05/10/19 05:17 Blood Culture - Final Blood Culture (Wb) - Right Forearm Streptococcus constellatus pha 05/11/19 08:47 Blood Culture - Preliminary Blood Culture (Wb) - Left Hand No growth in 48 hours. 05/11/19 08:40 Blood Culture - Preliminary Blood Culture (Wb) - Right Hand No growth in 48 hours. 05/10/19 05:40 Urine Culture - Final Urine, Clean Catch Mixed Gram Pos & Gram Neg Org Laboratory Tests Past 24 Hrs 05/13/19 05/13/19 05/13/19 16:50 16:50 16:50 WBC RBC Hgb Hct MCV MCH MCHC RDW Std Deviation RDW Coeff of Fatuma Plt Count MPV Immature Gran % (Auto) Neut % (Auto) Lymph % (Auto) [place] % (Auto) Eos % (Auto) Baso % (Auto) Absolute Neuts (auto) Absolute Lymphs (auto) Nucleated RBC % Sodium Potassium Chloride Carbon Dioxide Anion Gap BUN Creatinine Estim Creat Clear Calc Est GFR (MDRD) Af Amer Est GFR (MDRD) Non-Af BUN/Creatinine Ratio Glucose Calcium Urine Color Urine Clarity Urine pH Ur Specific [place] Urine Protein Urine Glucose (UA) Urine Ketones Urine Occult Blood Urine Nitrite Urine Bilirubin Urine Urobilinogen Ur Leukocyte Esterase Urine RBC Urine WBC Ur Squamous Epith Cells Urine Bacteria Urine Mucus Urine Myoglobin Pending U Random Total Protein 14.1 H Ur Random Sodium Urine Creatinine 19.70 05/13/19 05/13/19 05/14/19 16:50 16:50 05:45 WBC 12.0 H RBC 4.17 L Hgb 12.8 L Hct 39.8 L MCV 95.4 H MCH 30.7 MCHC 32.2 RDW Std Deviation 44.5 H RDW Coeff of Fatuma 12.5 Plt Count 305 MPV 10.3 Immature Gran % (Auto) 1.700 H Neut % (Auto) 77.7 H Lymph % (Auto) 11.1 L [place] % (Auto) 7.2 Eos % (Auto) 1.6 Baso % (Auto) 0.7 Absolute Neuts (auto) 9.3 H Absolute Lymphs (auto) 1.33 Nucleated RBC % 0 Sodium Potassium Chloride Carbon Dioxide Anion Gap BUN Creatinine Estim Creat Clear Calc Est GFR (MDRD) Af Amer Est GFR (MDRD) Non-Af BUN/Creatinine Ratio Glucose Calcium Urine Color Yellow Urine Clarity Clear Urine pH 6.0 Ur Specific [place] 1.005 Urine Protein 15 H Urine Glucose (UA) 250 H Urine Ketones Negative Urine Occult Blood 50 H Urine Nitrite Negative Urine Bilirubin Negative Urine Urobilinogen Normal Ur Leukocyte Esterase Negative Urine RBC 0 SEEN Urine WBC 0-5 SEEN Ur Squamous Epith Cells 0 SEEN Urine Bacteria 0 SEEN Urine Mucus 0 SEEN Urine Myoglobin U Random Total Protein Ur Random Sodium 65 Urine Creatinine 05/14/19 05:45 WBC RBC Hgb Hct MCV MCH MCHC RDW Std Deviation RDW Coeff of Fatuma Plt Count MPV Immature Gran % (Auto) Neut % (Auto) Lymph % (Auto) [place] % (Auto) Eos % (Auto) Baso % (Auto) Absolute Neuts (auto) Absolute Lymphs (auto) Nucleated RBC % Sodium 143 Potassium 4.7 Chloride 113 H Carbon Dioxide 19.0 L Anion Gap 11 BUN 46 H Creatinine 3.09 H Estim Creat Clear Calc 27.65 Est GFR (MDRD) Af Amer 26 L Est GFR (MDRD) Non-Af 22 L BUN/Creatinine Ratio 14.9 Glucose 232 H Calcium 8.3 L Urine Color Urine Clarity Urine pH Ur Specific [place] Urine Protein Urine Glucose (UA) Urine Ketones Urine Occult Blood Urine Nitrite Urine Bilirubin Urine Urobilinogen Ur Leukocyte Esterase Urine RBC Urine WBC Ur Squamous Epith Cells Urine Bacteria Urine Mucus Urine Myoglobin U Random Total Protein Ur Random Sodium Urine Creatinine POC Glucose 05/14/19 05/14/19 05/13/19 11:15 06:59 21:53 POC Glucose 340 H 221 H 282 H 05/13/19 16:30 POC Glucose 273 H Medical Necessity - Tobacco Use Smoking Status: Current every day smoker Tobacco Use: Cigarettes Route of nutrition/ use of supplements: [] Nutritional Intake: [] IV Site: [] Singleton Catheter: [] - Assessment/Plan Antibiotics: [] Assessment/Plan: [] Active and Suspected Problems Diabetic infection of left foot (Acute) 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 Staph aureus pcr was neg from foot. Bcx x2 (+) alpha strep. Surg cxs with enterococcus, strep, klebs, GPC, acinetobacter, GPR. TTE with no veg seen. No fever. Now s/p I&D 05/[address] Claudio. Worsening DEAN. Checking urine eos, neph following. 05/13 narrowed abx to unasyn. Will follow
[2019-05-14] MEDS: Morphine 4 MG/ML Syringe IV ×2 (13:39→18:21)
[2019-05-14] MEDS: 0.9% NaCl Peripheral Flush Adult/Peds IV (13:39)
--- NOTE | 2019-05-14 13:58 | NURSING ---
wound photo: left foot
--- NOTE | 2019-05-14 13:59 | NURSING ---
wound photo: left foot
[2019-05-14 16:46] LABS: Bedside Glucose 239 mg/dL (70-110)
[2019-05-14] MEDS: Tamsulosin HCl 0.4 MG Capsule PO (17:32)
[2019-05-14 22:01] LABS: Bedside Glucose 253 mg/dL (70-110)
[2019-05-15] VITALS (11 sets, daily range): BP systolic 149–168; BP diastolic 65–80; PULSE 67–84; RESP 16–18; TEMP 36.7–36.9; O2SAT 93–98
[2019-05-15] MEDS: Insulin Lispro 100 UNIT/ML INSULN.PEN SC ×3 (06:36→16:38)
[2019-05-15 06:41] LABS: Bedside Glucose 209 mg/dL (70-110)
[2019-05-15 06:42] LABS: Absolute Lymphocyte Count 1.47 X10^3/uL (0.83-4.51); Absolute Neutrophil Count 9.2 X10^3/uL (2.0-7.7); Basophil# 0.08 X10^3/uL; Basophil% 0.7 % (0-1); Eosinophil# 0.28 X10^3/uL; Eosinophils% 2.3 % (0-5); Hematocrit 37.3 % (40-54); Hemoglobin 11.9 g/dL (13.0-16.5); Lymphocyte # 1.47 X10^3/ul (4.0); Mean Corp Hgb Conc 31.9 g/dL (32-36); Mean Corpuscular Hgb 30.2 pg (27.0-32.0); Mean Corpuscular Volume 94.7 fL (80-94); Mean Platelet Vol. 10.4 fl (6.2-12.0); Monocyte# 0.98 X10^3/uL; NRBC Flagged by Analyzer 0 % (0-5); Neutrophil # 9.18 X10^3/uL (2.7-7.7); Neutrophil % 75.3 % (47-70); Platelet Count 322 K/mm3 (150-450); RBC Distribution Width CV 12.9 % (11.6-14.6); RBC Distribution Width SD 44.6 fl (35.1-43.9); Red Blood Count 3.94 M/mm3 (4.6-6.2); White Blood Count 12.2 K/mm3 (4.4-11.0)
[2019-05-15 07:01] LABS: Albumin, Serum 1.7 g/dL (3.2-5.0); BUN 46 mg/dL (7-18); BUN/Creat Ratio 14.6 RATIO (10-20); Calcium,Total 8.4 mg/dL (8.5-10.1); Chloride 113 mmol/L (98-107); Creatinine, Serum 3.15 mg/dL (0.70-1.30); EST Glomerular Filtration Rate 21 mL/min (>60); Est Glom Filt Rate - Afr Amer 26 mL/min (>60); Estimated Creatinine Clearance 27.13 ml/min; Glucose 220 mg/dL (74-106); Potassium 4.6 mmol/L (3.5-5.1); Sodium Level 142 mmol/L (136-145)
[2019-05-15] MEDS: Multivitamins,Therapeutic Tablet 1 TABLET PO (08:53)
[2019-05-15] MEDS: Calcium (Elemental) 500 MG Tablet PO (08:53)
[2019-05-15] MEDS: Ascorbic Acid 500 MG Tablet PO ×2 (08:53→17:31)
[2019-05-15] MEDS: Docusate Sodium 100 MG Capsule PO ×2 (10:41→21:23)
[2019-05-15] MEDS: Enoxaparin 40 MG/0.4 ML Syringe SC (10:41)
[2019-05-15] MEDS: Famotidine 20 MG Tablet PO ×2 (10:41→21:23)
[2019-05-15] MEDS: 0.9% Normal Saline 1,000 ML 75 ML IV ×2 (10:49→23:47)
[2019-05-15 11:55] LABS: Bedside Glucose 263 mg/dL (70-110)
--- NOTE | 2019-05-15 11:56 | PN_ITS ---
Patient Problems: Active and Suspected Problems Diabetic infection of left foot (Acute) DEAN (acute kidney injury) (Acute) Severe sepsis (Acute) Elevated troponin (Acute) Dehydration (Acute) Diabetic hyperosmolar non-ketotic state (Acute) Peripheral vascular disease (Suspected) Subjective: This 64 year old male with multiple comorbidities was seen bedside POD #5 s/p left foot debridement of non viable soft tissue and bone including first and second ray resections. He denies fever, chills, nausea, vomiting. He reports his pain in foot is still well controlled. He has an appetite and is getting ready to eat his lunch. His is sitting up and feeling well overall. - Physical Exam General: Alert, Oriented x3, Cooperative, No apparent distress Extremities: No cyanosis, Capillary Refill Less than 3 Seconds, No Calf Tenderness, Diminished Peripheral Pulses - Negative Rangel sign, Edema - Mild bilateral lower extremity edema Skin: Ulcer/ Wound - No purulence on expression or alfred necrosis noted today. There is no malodor. There is no streaking erythema/cellulitis noted. The open tissue resection amputation site is a mix of granulation tissue, fibrous, biofilm, slough, and devitalized tendon and subcutaneous tissue with exposed bon e resections. Hemostasis is controlled and there is decreased drainage noted. No strikethrough to outer dressing. The peripheral skin is hairless and atrophic on the left foot. Musculoskeletal: No Tenderness to Palpation of Joints or Extremities, Muscle Wasting, Tenderness - With surgical site manipulation., - - Open first and second ray resection left lower extremity. Patient noted to have active range of motion of remaining digits at this time. Neurological: - - Lack of epicritic sensation to the lower extremity consistent with diabetic neuropathy Psych/Mental Status: Normal Affect, Appropriate Vital Signs Temp Pulse Resp BP Pulse Ox 98.0 F 78 18 149/68 H 98 05/15/19 08:23 05/15/19 11:00 05/15/19 08:23 05/15/19 08:23 05/15/19 09:07 Oxygen Delivery Method Room Air Weight: 110.9 kg Body Mass Index (BMI) 32.2 Finger Stick Blood Glucose 600 Intake and Output for Last 24 Hours 05/13/19 05/14/19 05/15/19 23:59 23:59 23:59 Intake Total 7666.75 / 7666.75 4505.67 / 4505.67 1352 / 1352 Output Total 6155 / 6155 6525 / 6525 2500 / 2500 Balance 1511.75 / 1511.75 -2019.33 / -2019.33 -1148 / -1148 Microbiology Past 72 Hours 05/10/19 19:11 Gram Stain - Final Biopsy - Other Wound Culture - Final Streptococcus constellatus pha Lactobacillus gasseri Anaerobic Culture - Preliminary Checking for anaerobes, further studies to follow. 05/10/19 05:40 Gram Stain - Final Wound Abcess - Left Foot Wound Culture - Final Klebsiella oxytoca Lactobacillus plantarum Streptococcus agalactiae (B) Enterococcus faecalis Anaerobic Culture - Preliminary Checking for anaerobes, further studies to follow. 05/10/19 19:11 Gram Stain - Final Tissue - Other Wound Culture - Final Enterococcus faecalis Streptococcus sanguinis Actinomyces odontolyticus Anaerobic Culture - Preliminary Checking for anaerobes, further studies to follow. 05/10/19 05:20 Blood Culture - Final Blood Culture (Wb) - Left Forearm Alpha Hemolytic Streptococcus 05/10/19 05:17 Blood Culture - Final Blood Culture (Wb) - Right Forearm Streptococcus constellatus pha 05/11/19 08:47 Blood Culture - Preliminary Blood Culture (Wb) - Left Hand No growth in 48 hours. 05/11/19 08:40 Blood Culture - Preliminary Blood Culture (Wb) - Right Hand No growth in 48 hours. Laboratory Tests Past 24 Hrs 05/15/19 05/15/19 05:53 05:53 WBC 12.2 H RBC 3.94 L Hgb 11.9 L Hct 37.3 L MCV 94.7 H MCH 30.2 MCHC 31.9 L RDW Std Deviation 44.6 H RDW Coeff of Fatuma 12.9 Plt Count 322 MPV 10.4 Immature Gran % (Auto) 1.700 H Neut % (Auto) 75.3 H Lymph % (Auto) 12.0 L Edgar % (Auto) 8.0 Eos % (Auto) 2.3 Baso % (Auto) 0.7 Absolute Neuts (auto) 9.2 H Absolute Lymphs (auto) 1.47 Nucleated RBC % 0 Sodium 142 Potassium 4.6 Chloride 113 H Carbon Dioxide 21.0 BUN 46 H Creatinine 3.15 H Estim Creat Clear Calc 27.13 Est GFR (MDRD) Af Amer 26 L Est GFR (MDRD) Non-Af 21 L BUN/Creatinine Ratio 14.6 Glucose 220 H Calcium 8.4 L Phosphorus 4.0 Albumin 1.7 L POC Glucose 05/15/19 05/15/19 05/14/19 11:40 06:33 21:07 POC Glucose 263 H 209 H 253 H 05/14/19 16:38 POC Glucose 239 H Medical Necessity - Tobacco Use Smoking Status: Current every day smoker Tobacco Use: Cigarettes Assessment/Plan All Active Problems Diabetic infection of left foot (Acute) DEAN (acute kidney injury) (Acute) Severe sepsis (Acute) Elevated troponin (Acute) Dehydration (Acute) Diabetic hyperosmolar non-ketotic state (Acute) Left diabetic foot infection with associated severe sepsis and osteomyelitis now POD #5 left soft tissue and bone debridement including open first and second ray resection Bacteremia Uncontrolled diabetes with neuropathy Lower extremity edema Other comorbidities This patient was carefully examined and evaluated again today. Patient is POD #5 s/p left soft tissue and bone debridement including open first and second ray resection by Dr. Claudio. He is resting in chair bedside and getting ready to eat his lunch. He remains afebrile and his vital signs are stable. He continues on IV antibiotics at this time under the management of infectious disease. Clinically, the surgical site continues to improve in appearance while allowing the tissues to continue to demarcate. This will continue to be monitored close for complete infection resolution and tissue demarcation to determine the level of limb salvage. As of now, the plan is for patient to have his next procedure performed by Dr. Claudio early this coming week. He understands a transmetatarsal amputation is likely after the tissues demarcates next week. Surgical site was again evaluated today and then flushed with copious amounts of normal sterile saline. Once complete, the site was then dressed with adaptic to the base, followed by 4x4s, ABDs, kerlix, and guerrero bandage. Dressing can be reinforced by nursing as necessary. He is instructed to continue to remain non weightbearing to left lower extremity with surgical shoe. Medical management and DVT prophylaxis per primary team is appreciated. Podiatry will continue to follow him close while in house. Please do not hesitate to call if you have any questions.
[2019-05-15] MEDS: Morphine 4 MG/ML Syringe IV ×2 (14:55→21:35)
[2019-05-15 17:10] LABS: Bedside Glucose 229 mg/dL (70-110)
[2019-05-15] MEDS: oxyCODONE 5 MG Tablet 10 MG PO (17:31)
[2019-05-15] MEDS: Tamsulosin HCl 0.4 MG Capsule PO (17:31)
--- NOTE | 2019-05-15 18:38 | PCM.PROGNOTE ---
Patient Problems: Active and Suspected Problems Diabetic infection of left foot (Acute) DEAN (acute kidney injury) (Acute) Severe sepsis (Acute) Elevated troponin (Acute) Dehydration (Acute) Diabetic hyperosmolar non-ketotic state (Acute) Peripheral vascular disease (Suspected) Subjective: Patient was seen and examined today, his creatinine is virtually unchanged today. Patient has no complaints of any chills or fever today. - Physical Exam General: Alert, Oriented x3, Cooperative, No apparent distress HEENT: Atraumatic, PERRLA, EOMI, Normocephalic Oral: Moist Mucosa Neck: Supple, Trachea Midline, Thyroid Normal Size and Texture Lungs: Clear to auscultation, Normal air movement, No rhonchi, No wheeze, No rales Cardiovascular: Regular rate, Regular Rhythm, Normal S1, Normal S2, No murmurs, No Ectopic Activity Abdomen: Bowel Sounds Present, Soft, Non Tender, Non-Distended, No hernias noted Extremities: No clubbing, No cyanosis, No edema, Capillary Refill Less than 3 Seconds Skin: - - Left lower leg is wrapped with surgical dressing and was not examined at this time Neurological: Cranial nerves II-XII grossly intact, Neuro grossly intact, Sensory exam intact to light touch and pain, Coordination normal Psych/Mental Status: Normal Affect, Appropriate, Alert and oriented to time, place, person, mood and affect Vital Signs Temp Pulse Resp BP Pulse Ox 98.2 F 71 16 155/65 H 97 05/15/19 17:00 05/15/19 17:00 05/15/19 17:00 05/15/19 17:00 05/15/19 17:00 Oxygen Delivery Method Room Air Weight: 110.9 kg Body Mass Index (BMI) 32.2 Finger Stick Blood Glucose 600 Intake and Output for Last 24 Hours 05/13/19 05/14/19 05/15/19 23:59 23:59 23:59 Intake Total 7666.75 / 7666.75 4505.67 / 4505.67 2192 / 2192 Output Total 6155 / 6155 6525 / 6525 4008 / 4008 Balance 1511.75 / 1511.75 -2019.33 / -2019.33 -1816 / -1816 Microbiology Past 72 Hours 05/10/19 19:11 Gram Stain - Final Biopsy - Other Wound Culture - Final Streptococcus constellatus pha Lactobacillus gasseri Anaerobic Culture - Preliminary Checking for anaerobes, further studies to follow. 05/10/19 05:40 Gram Stain - Final Wound Abcess - Left Foot Wound Culture - Final Klebsiella oxytoca Lactobacillus plantarum Streptococcus agalactiae (B) Enterococcus faecalis Anaerobic Culture - Preliminary Checking for anaerobes, further studies to follow. 05/10/19 19:11 Gram Stain - Final Tissue - Other Wound Culture - Final Enterococcus faecalis Streptococcus sanguinis Actinomyces odontolyticus Anaerobic Culture - Preliminary Checking for anaerobes, further studies to follow. 05/10/19 05:20 Blood Culture - Final Blood Culture (Wb) - Left Forearm Alpha Hemolytic Streptococcus 05/10/19 05:17 Blood Culture - Final Blood Culture (Wb) - Right Forearm Streptococcus constellatus pha 05/11/19 08:47 Blood Culture - Preliminary Blood Culture (Wb) - Left Hand No growth in 48 hours. 05/11/19 08:40 Blood Culture - Preliminary Blood Culture (Wb) - Right Hand No growth in 48 hours. Laboratory Tests Past 24 Hrs 05/15/19 05/15/19 05:53 05:53 WBC 12.2 H RBC 3.94 L Hgb 11.9 L Hct 37.3 L MCV 94.7 H MCH 30.2 MCHC 31.9 L RDW Std Deviation 44.6 H RDW Coeff of Fatuma 12.9 Plt Count 322 MPV 10.4 Immature Gran % (Auto) 1.700 H Neut % (Auto) 75.3 H Lymph % (Auto) 12.0 L Stevens % (Auto) 8.0 Eos % (Auto) 2.3 Baso % (Auto) 0.7 Absolute Neuts (auto) 9.2 H Absolute Lymphs (auto) 1.47 Nucleated RBC % 0 Sodium 142 Potassium 4.6 Chloride 113 H Carbon Dioxide 21.0 BUN 46 H Creatinine 3.15 H Estim Creat Clear Calc 27.13 Est GFR (MDRD) Af Amer 26 L Est GFR (MDRD) Non-Af 21 L BUN/Creatinine Ratio 14.6 Glucose 220 H Calcium 8.4 L Phosphorus 4.0 Albumin 1.7 L POC Glucose 05/15/19 05/15/19 05/15/19 16:34 11:40 06:33 POC Glucose 229 H 263 H 209 H 05/14/19 21:07 POC Glucose 253 H Medical Necessity - Tobacco Use Smoking Status: Current every day smoker Tobacco Use: Cigarettes Assessment/Plan All Active Problems Diabetic infection of left foot (Acute) DEAN (acute kidney injury) (Acute) Severe sepsis (Acute) Elevated troponin (Acute) Dehydration (Acute) Diabetic hyperosmolar non-ketotic state (Acute) #1 acute severe sepsis secondary to left lower leg neuropathic wound infection with osteomyelitis-secondary to enterococcus, strep, Klebsiella oxytoca, lactobacillus-patient is to continue with his present antibiotics, podiatry is following the patient, infectious diseases is following patient #2 type 2 diabetes-under poor control due to patient noncompliance-continue to monitor blood sugars, titrate insulin as needed #3 acute kidney injury-etiology unclear, patient's creatinine again is unchanged from yesterday, continue to monitor labs and give IV fluids #4 acute rhabdomyolysis-resolving #5 hypertension #6 diabetic neuropathy #7 type II [id number] #8 BPH-continue Flomax, patient is a Dyer catheter Code Visit Inpatient E&M: 07211 Subs Hosp L2
--- NOTE | 2019-05-15 18:49 | NURSING ---
Reviewed and agreed w/ Xiang Leo RN charting.
[2019-05-15] MEDS: 0.9% NaCl Peripheral Flush Adult/Peds IV (21:36)
[2019-05-15 22:30] LABS: Bedside Glucose 227 mg/dL (70-110)
[2019-05-16] VITALS (11 sets, daily range): BP systolic 148–165; BP diastolic 61–75; PULSE 65–86; RESP 16–20; TEMP 36.7–37.1; O2SAT 92–98
[2019-05-16 06:17] LABS: Albumin, Serum 1.8 g/dL (3.2-5.0); BUN 49 mg/dL (7-18); BUN/Creat Ratio 16.2 RATIO (10-20); Calcium,Total 8.6 mg/dL (8.5-10.1); Chloride 115 mmol/L (98-107); Creatinine, Serum 3.02 mg/dL (0.70-1.30); EST Glomerular Filtration Rate 22 mL/min (>60); Est Glom Filt Rate - Afr Amer 27 mL/min (>60); Estimated Creatinine Clearance 28.29 ml/min; Glucose 193 mg/dL (74-106); Phosphorus 4.3 mg/dL (2.5-4.9); Potassium 4.7 mmol/L (3.5-5.1); Sodium Level 144 mmol/L (136-145)
[2019-05-16] MEDS: oxyCODONE 5 MG Tablet 10 MG PO ×2 (06:32→11:33)
[2019-05-16] MEDS: Insulin Lispro 100 UNIT/ML INSULN.PEN SC ×3 (06:35→17:21)
[2019-05-16 06:40] LABS: Bedside Glucose 186 mg/dL (70-110)
[2019-05-16] MEDS: Ascorbic Acid 500 MG Tablet PO ×2 (08:11→17:23)
[2019-05-16] MEDS: Calcium (Elemental) 500 MG Tablet PO (08:11)
[2019-05-16] MEDS: Multivitamins,Therapeutic Tablet 1 TABLET PO (08:12)
[2019-05-16] MEDS: Docusate Sodium 100 MG Capsule PO ×2 (09:16→21:38)
[2019-05-16] MEDS: Famotidine 20 MG Tablet PO ×2 (09:17→21:38)
[2019-05-16] MEDS: Enoxaparin 40 MG/0.4 ML Syringe SC (09:17)
[2019-05-16 11:25] LABS: Bedside Glucose 311 mg/dL (70-110)
[2019-05-16] MEDS: 0.9% Normal Saline 1,000 ML 75 ML IV (11:35)
--- NOTE | 2019-05-16 14:23 | PCM.PN.REN ---
Patient Problems: Active and Suspected Problems Diabetic infection of left foot (Acute) DEAN (acute kidney injury) (Acute) Severe sepsis (Acute) Elevated troponin (Acute) Dehydration (Acute) Diabetic hyperosmolar non-ketotic state (Acute) Peripheral vascular disease (Suspected) Subjective: denies nausea, vomiting, SOB. Complains of thirst. Good urine output. Creatinine slightly improved. - Physical Exam General: Alert, Oriented x3, Cooperative, No apparent distress Lungs: Clear to auscultation Cardiovascular: Regular rate, No rub noted Abdomen: Bowel Sounds Present, Soft, Non Tender, Non-Distended, Obese Extremities: Edema, - - LLE wrapped Skin: Ulcer/ Wound - left foot s/p ray amp Neurological: Cranial nerves II-XII grossly intact, - - no tremor Psych/Mental Status: Alert and oriented to time, place, person, mood and affect Vital Signs Temp Pulse Resp BP Pulse Ox 98.1 F 65 20 H 148/61 H 92 05/16/19 09:10 05/16/19 13:51 05/16/19 13:51 05/16/19 09:10 05/16/19 09:10 Oxygen Delivery Method Room Air Weight: 110.9 kg Body Mass Index (BMI) 32.2 Finger Stick Blood Glucose 600 Intake and Output for Last 24 Hours 05/14/19 05/15/19 05/16/19 23:59 23:59 23:59 Intake Total 4505.67 / 4505.67 5131.5 / 5131.5 1872 / 1872 Output Total 6525 / 6525 8858 / 8858 4050 / 4050 Balance -2019.33 / -2019.33 -3726.5 / -3726.5 -2178 / -2178 Microbiology Past 72 Hours 05/11/19 08:47 Blood Culture - Final Blood Culture (Wb) - Left Hand No growth in 5 days. 05/11/19 08:40 Blood Culture - Final Blood Culture (Wb) - Right Hand No growth in 5 days. 05/10/19 05:40 Gram Stain - Final Wound Abcess - Left Foot Wound Culture - Final Klebsiella oxytoca Lactobacillus plantarum Streptococcus agalactiae (B) Enterococcus faecalis Anaerobic Culture - Final No anaerobic bacteria isolated. 05/10/19 19:11 Gram Stain - Final Biopsy - Other Wound Culture - Final Streptococcus constellatus pha Lactobacillus gasseri Anaerobic Culture - Final Lactobacillus gasseri 05/10/19 19:11 Gram Stain - Final Tissue - Other Wound Culture - Final Enterococcus faecalis Streptococcus sanguinis Actinomyces odontolyticus Anaerobic Culture - Final Lactobacillus gasseri Laboratory Tests Past 24 Hrs 05/16/19 05:35 Sodium 144 Potassium 4.7 Chloride 115 H Carbon Dioxide 22.0 BUN 49 H Creatinine 3.02 H Estim Creat Clear Calc 28.29 Est GFR (MDRD) Af Amer 27 L Est GFR (MDRD) Non-Af 22 L BUN/Creatinine Ratio 16.2 Glucose 193 H Calcium 8.6 Phosphorus 4.3 Albumin 1.8 L POC Glucose 05/16/19 05/16/19 05/15/19 11:16 06:34 21:29 POC Glucose 311 H 186 H 227 H 05/15/19 16:34 POC Glucose 229 H Medical Necessity - Tobacco Use Smoking Status: Current every day smoker Tobacco Use: Cigarettes Assessment/Plan All Active Problems Diabetic infection of left foot (Acute) DEAN (acute kidney injury) (Acute) Severe sepsis (Acute) Elevated troponin (Acute) Dehydration (Acute) Diabetic hyperosmolar non-ketotic state (Acute) 1. DEAN due to ATN from sepsis, hypotension, rhabdo. Nonoliguric with creatinine slightly improved. May be recovering. No urgent indication to initiate dialysis today. Pt without uremic symptoms. In negative balance 2. Diabetic foot ulcer s/p ray amputation, debridement 3. Sepsis on iv antibx followed. 4. HTN stable 5. DM2 poorly controlled due to medical noncompliance, infection 6. Rhabdomyolysis CPK improving 7. weakness, debilitation
[2019-05-16] MEDS: Morphine 4 MG/ML Syringe IV ×2 (15:23→20:30)
[2019-05-16] MEDS: Tamsulosin HCl 0.4 MG Capsule PO (17:23)
[2019-05-16 17:30] LABS: Bedside Glucose 247 mg/dL (70-110)
--- NOTE | 2019-05-16 19:03 | PN_ITS ---
Patient Problems: Active and Suspected Problems Diabetic infection of left foot (Acute) DEAN (acute kidney injury) (Acute) Severe sepsis (Acute) Elevated troponin (Acute) Dehydration (Acute) Diabetic hyperosmolar non-ketotic state (Acute) Peripheral vascular disease (Suspected) Subjective: Patient seen and examined today, his creatinine dropped slightly today, he does not complain of any fevers or chills. Objective: General: Alert, Oriented x3, Cooperative, No apparent distress HEENT: Atraumatic, PERRLA, EOMI, Normocephalic Oral: Moist Mucosa Neck: Supple, Trachea Midline, Thyroid Normal Size and Texture Lungs: Clear to auscultation, Normal air movement, No rhonchi, No wheeze, No rales Cardiovascular: Regular rate, Regular Rhythm, Normal S1, Normal S2, No murmurs, No Ectopic Activity Abdomen: Bowel Sounds Present, Soft, Non Tender, Non-Distended, No hernias noted Extremities: No clubbing, No cyanosis, No edema, Capillary Refill Less than 3 Seconds, left lower leg is wrapped with surgical dressing this time Skin: - - Left lower leg is wrapped with surgical dressing and was not examined at this time Neurological: Cranial nerves II-XII grossly intact, Neuro grossly intact, Sensory exam intact to light touch and pain, Coordination normal Psych/Mental Status: Normal Affect, Appropriate, Alert and oriented to time, place, person, mood and affect - Physical Exam Vital Signs Temp Pulse Resp BP Pulse Ox 98.2 F 69 20 H 150/64 H 98 05/16/19 15:30 05/16/19 16:00 05/16/19 15:30 05/16/19 15:30 05/16/19 15:30 Oxygen Delivery Method Room Air Weight: 110.9 kg Body Mass Index (BMI) 32.2 Finger Stick Blood Glucose 600 Intake and Output for Last 24 Hours 05/14/19 05/15/19 05/16/19 23:59 23:59 23:59 Intake Total 4505.67 / 4505.67 5131.5 / 5131.5 2272 / 2272 Output Total 6525 / 6525 8858 / 8858 5800 / 5800 Balance -2019.33 / -2019.33 -3726.5 / -3726.5 -3528 / -3528 Microbiology Past 72 Hours 05/11/19 08:47 Blood Culture - Final Blood Culture (Wb) - Left Hand No growth in 5 days. 05/11/19 08:40 Blood Culture - Final Blood Culture (Wb) - Right Hand No growth in 5 days. 05/10/19 05:40 Gram Stain - Final Wound Abcess - Left Foot Wound Culture - Final Klebsiella oxytoca Lactobacillus plantarum Streptococcus agalactiae (B) Enterococcus faecalis Anaerobic Culture - Final No anaerobic bacteria isolated. 05/10/19 19:11 Gram Stain - Final Biopsy - Other Wound Culture - Final Streptococcus constellatus pha Lactobacillus gasseri Anaerobic Culture - Final Lactobacillus gasseri 05/10/19 19:11 Gram Stain - Final Tissue - Other Wound Culture - Final Enterococcus faecalis Streptococcus sanguinis Actinomyces odontolyticus Anaerobic Culture - Final Lactobacillus gasseri Laboratory Tests Past 24 Hrs 05/16/19 05:35 Sodium 144 Potassium 4.7 Chloride 115 H Carbon Dioxide 22.0 BUN 49 H Creatinine 3.02 H Estim Creat Clear Calc 28.29 Est GFR (MDRD) Af Amer 27 L Est GFR (MDRD) Non-Af 22 L BUN/Creatinine Ratio 16.2 Glucose 193 H Calcium 8.6 Phosphorus 4.3 Albumin 1.8 L POC Glucose 05/16/19 05/16/19 05/16/19 17:20 11:16 06:34 POC Glucose 247 H 311 H 186 H 05/15/19 21:29 POC Glucose 227 H Medical Necessity - Tobacco Use Smoking Status: Current every day smoker Tobacco Use: Cigarettes Assessment/Plan All Active Problems Diabetic infection of left foot (Acute) DEAN (acute kidney injury) (Acute) Severe sepsis (Acute) Elevated troponin (Acute) Dehydration (Acute) Diabetic hyperosmolar non-ketotic state (Acute) #1 acute severe sepsis secondary to left lower leg neuropathic wound infection with osteomyelitis-secondary to enterococcus, strep, Klebsiella oxytoca, lac tobacillus-patient is to continue with his present antibiotics, podiatry is following the patient, infectious diseases is following patient #2 type 2 diabetes-under poor control due to patient noncompliance-continue to monitor blood sugars, titrate insulin as needed #3 acute kidney injury-etiology unclear, patient's creatinine is slightly improved from yesterday, continue present treatment as directed by nephrology #4 acute rhabdomyolysis-resolving #5 hypertension #6 diabetic neuropathy #7 type II [id number] #8 BPH-continue Flomax, patient has a Dyer catheter Code Visit Inpatient E&M: 84179 Subs Hosp L2
[2019-05-16] MEDS: 0.9% NaCl Peripheral Flush Adult/Peds IV (20:30)
[2019-05-16 22:10] LABS: Bedside Glucose 283 mg/dL (70-110)
[2019-05-17] VITALS (16 sets, daily range): BP systolic 149–160; BP diastolic 58–78; PULSE 64–86; RESP 18–20; TEMP 36.6–36.9; O2SAT 93–98; BMI 32.3
[2019-05-17] MEDS: 0.9% Normal Saline 1,000 ML 75 ML IV ×2 (01:16→13:09)
[2019-05-17] MEDS: Morphine 4 MG/ML Syringe IV ×2 (03:53→21:46)
[2019-05-17 06:10] LABS: Albumin, Serum 1.8 g/dL (3.2-5.0); BUN 49 mg/dL (7-18); BUN/Creat Ratio 16.6 RATIO (10-20); Calcium,Total 8.7 mg/dL (8.5-10.1); Chloride 112 mmol/L (98-107); Creatinine, Serum 2.95 mg/dL (0.70-1.30); EST Glomerular Filtration Rate 23 mL/min (>60); Est Glom Filt Rate - Afr Amer 28 mL/min (>60); Estimated Creatinine Clearance 28.97 ml/min; Glucose 253 mg/dL (74-106); Phosphorus 3.8 mg/dL (2.5-4.9); Potassium 4.6 mmol/L (3.5-5.1); Sodium Level 142 mmol/L (136-145)
[2019-05-17 08:11] LABS: Bedside Glucose 224 mg/dL (70-110)
[2019-05-17] MEDS: Multivitamins,Therapeutic Tablet 1 TABLET PO (09:48)
[2019-05-17] MEDS: Calcium (Elemental) 500 MG Tablet PO (09:49)
[2019-05-17] MEDS: Docusate Sodium 100 MG Capsule PO ×2 (09:49→21:46)
[2019-05-17] MEDS: Famotidine 20 MG Tablet PO ×2 (09:50→21:46)
[2019-05-17] MEDS: Enoxaparin 40 MG/0.4 ML Syringe SC (09:51)
[2019-05-17] MEDS: Insulin Lispro 100 UNIT/ML INSULN.PEN SC ×5 (09:53→17:11)
--- NOTE | 2019-05-17 10:44 | PCM.PN.ID ---
Patient Problems: Active and Suspected Problems Foot abscess, left (Acute) Diabetic infection of left foot (Acute) DEAN (acute kidney injury) (Acute) Severe sepsis (Acute) Elevated troponin (Acute) Dehydration (Acute) Diabetic hyperosmolar non-ketotic state (Acute) Peripheral vascular disease (Suspected) Subjective: Feeling ok, OR planned for tomorrow, no fever, no n/v/d. - Physical Exam General: Alert, Cooperative, No apparent distress Lungs: Clear to auscultation, Normal air movement Cardiovascular: Regular rate, Regular Rhythm Abdomen: Soft, Non Tender, Non-Distended Extremities: Edema Skin: Ulcer/ Wound - foot wrapped Vital Signs Temp Pulse Resp BP Pulse Ox 98.1 F 71 18 158/67 H 98 05/17/19 09:30 05/17/19 09:30 05/17/19 09:30 05/17/19 09:30 05/17/19 09:30 Oxygen Delivery Method Room Air Weight: 110.9 kg Body Mass Index (BMI) 32.2 Finger Stick Blood Glucose 600 Intake and Output for Last 24 Hours 05/15/19 05/16/19 05/17/19 23:59 23:59 23:59 Intake Total 5131.5 / 5131.5 2534 / 2534 1150 / 1150 Output Total 8858 / 8858 8150 / 8150 1500 / 1500 Balance -3726.5 / -3726.5 -5616 / -5616 -350 / -350 Microbiology Past 72 Hours 05/11/19 08:47 Blood Culture - Final Blood Culture (Wb) - Left Hand No growth in 5 days. 05/11/19 08:40 Blood Culture - Final Blood Culture (Wb) - Right Hand No growth in 5 days. 05/10/19 05:40 Gram Stain - Final Wound Abcess - Left Foot Wound Culture - Final Klebsiella oxytoca Lactobacillus plantarum Streptococcus agalactiae (B) Enterococcus faecalis Anaerobic Culture - Final No anaerobic bacteria isolated. 05/10/19 19:11 Gram Stain - Final Biopsy - Other Wound Culture - Final Streptococcus constellatus pha Lactobacillus gasseri Anaerobic Culture - Final Lactobacillus gasseri 05/10/19 19:11 Gram Stain - Final Tissue - Other Wound Culture - Final Enterococcus faecalis Streptococcus sanguinis Actinomyces odontolyticus Anaerobic Culture - Final Lactobacillus gasseri Laboratory Tests Past 24 Hrs 05/17/19 05:32 Sodium 142 Potassium 4.6 Chloride 112 H Carbon Dioxide 23.0 BUN 49 H Creatinine 2.95 H Estim Creat Clear Calc 28.97 Est GFR (MDRD) Af Amer 28 L Est GFR (MDRD) Non-Af 23 L BUN/Creatinine Ratio 16.6 Glucose 253 H Calcium 8.7 Phosphorus 3.8 Albumin 1.8 L POC Glucose 05/17/19 05/16/19 05/16/19 08:06 21:33 17:20 POC Glucose 224 H 283 H 247 H 05/16/19 11:16 POC Glucose 311 H Medical Necessity - Tobacco Use Smoking Status: Current every day smoker Tobacco Use: Cigarettes Route of nutrition/ use of supplements: [] Nutritional Intake: [] IV Site: [] Dyer Catheter: [] - Assessment/Plan Antibiotics: [] Assessment/Plan: [] Active and Suspected Problems Diabetic infection of left foot (Acute) 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 Staph aureus pcr was neg from foot. Bcx x2 (+) alpha strep. Surg cxs with enterococcus, strep, klebs, GPC, acinetobacter, GPR. TTE with no veg seen. No fever. Now s/p I&D 05/[address] Claudio. DEAN slowly improving. 05/13 narrowed abx to unasyn. Will follow
[2019-05-17 13:01] LABS: Bedside Glucose 266 mg/dL (70-110)
--- NOTE | 2019-05-17 13:10 | PCM.PROGNOTE ---
Patient Problems: Active and Suspected Problems Diabetic infection of left foot (Acute) DEAN (acute kidney injury) (Acute) Severe sepsis (Acute) Elevated troponin (Acute) Dehydration (Acute) Diabetic hyperosmolar non-ketotic state (Acute) Peripheral vascular disease (Suspected) Subjective: Agreeable to surgery tomorrow. No fever/chills. No diarrhea. No cough/sob. Pain is controlled. No nicotine craving. No irritation with singleton. - Physical Exam General: Alert, Oriented x3, Cooperative HEENT: Atraumatic, PERRLA, EOMI, Normocephalic Neck: Supple, No JVD, Negative Carotid Bruits Lungs: Clear to auscultation, Normal air movement Cardiovascular: Regular rate, No murmurs Abdomen: Bowel Sounds Present, Soft, Non Tender Extremities: No edema, Capillary Refill Less than 3 Seconds Skin: No rashes, No breakdown Musculoskeletal: No Tenderness to Palpation of Joints or Extremities Neurological: Cranial nerves II-XII grossly intact Psych/Mental Status: Normal Affect, Appropriate, Alert and oriented to time, place, person, mood and affect Vital Signs Temp Pulse Resp BP Pulse Ox 98.1 F 64 18 158/67 H 98 05/17/19 09:30 05/17/19 12:35 05/17/19 09:30 05/17/19 09:30 05/17/19 09:30 Oxygen Delivery Method Room Air Weight: 244 lb 7.882 oz Body Mass Index (BMI) 32.2 Finger Stick Blood Glucose 600 Intake and Output for Last 24 Hours 05/15/19 05/16/19 05/17/19 23:59 23:59 23:59 Intake Total 5131.5 / 5131.5 2534 / 2534 2503 / 2503 Output Total 8858 / 8858 8150 / 8150 3200 / 3200 Balance -3726.5 / -3726.5 -5616 / -5616 -697 / -697 Microbiology Past 72 Hours 05/11/19 08:47 Blood Culture - Final Blood Culture (Wb) - Left Hand No growth in 5 days. 05/11/19 08:40 Blood Culture - Final Blood Culture (Wb) - Right Hand No growth in 5 days. 05/10/19 05:40 Gram Stain - Final Wound Abcess - Left Foot Wound Culture - Final Klebsiella oxytoca Lactobacillus plantarum Streptococcus agalactiae (B) Enterococcus faecalis Anaerobic Culture - Final No anaerobic bacteria isolated. 05/10/19 19:11 Gram Stain - Final Biopsy - Other Wound Culture - Final Streptococcus constellatus pha Lactobacillus gasseri Anaerobic Culture - Final Lactobacillus gasseri 05/10/19 19:11 Gram Stain - Final Tissue - Other Wound Culture - Final Enterococcus faecalis Streptococcus sanguinis Actinomyces odontolyticus Anaerobic Culture - Final Lactobacillus gasseri Laboratory Tests Past 24 Hrs 05/17/19 05:32 Sodium 142 Potassium 4.6 Chloride 112 H Carbon Dioxide 23.0 BUN 49 H Creatinine 2.95 H Estim Creat Clear Calc 28.97 Est GFR (MDRD) Af Amer 28 L Est GFR (MDRD) Non-Af 23 L BUN/Creatinine Ratio 16.6 Glucose 253 H Calcium 8.7 Phosphorus 3.8 Albumin 1.8 L POC Glucose 05/17/19 05/17/19 05/16/19 12:52 08:06 21:33 POC Glucose 266 H 224 H 283 H 05/16/19 17:20 POC Glucose 247 H Medical Necessity - Tobacco Use Smoking Status: Current every day smoker Tobacco Use: Cigarettes Assessment/Plan All Active Problems Foot abscess, left (Acute) Foot abscess, left (Acute) Diabetic infection of left foot (Acute) DEAN (acute kidney injury) (Acute) Severe sepsis (Acute) Elevated troponin (Acute) Dehydration (Acute) Diabetic hyperosmolar non-ketotic state (Acute) 1. Acute severe sepsis, bacteremia, 2/2 LLE diabetic foot wound - continue Ampicillin. Blood cx now negative. echo without valvular involvement. Likely transmet amputation tomorrow. 2. DMt2 with poor control. A1C 13.3. Continue titrating insulin to response. Started low dose mealtime will go up from there depending on his needs post op. 3. DEAN - 2/2 sepsis and urinary retention. Neph following. 500cc retained, singleton placed. Flomax started. Renal US is normal. Output is good. Trend. Gently IV fluids given. Will need voiding trial prior to DC. 4. NSTEMI - initial indeterminate trop trended down, no CP, tele changes. Echo with some wall motion abnormalities, EF 55%, St1 diastolic dysfxn. 5. Acute rhabdomyolysis - resolved. 6. Hyponatremia resolved. 7. HTN stable 8. Nicotine abuse - will complicate #1. Patch provided. DVT ppx: lovenox This patient was seen by Filiberto Camejo PA-C under the supervision of Doctor Garcia.
[2019-05-17 13:55] LABS: Eosinophil Ct. Urine No Eosinophils Seen % (.)
--- NOTE | 2019-05-17 15:35 | CASEMGMT ---
Social Work Phone call to [facility] to check if they can accept pt. Yudelka states they cannot accept until pt has his QIT set up for Medicaid eligibility. ROBBIN met with pt and sister Marybeth came in shortly after ROBBIN. Pt and sister have not worked on QIT over the weekend. ROBBIN assisted pt in completing QIT form and pt sister Marybeth was going to leave hospital and go to bank to set up and make deposit into the QIT account. ROBBIN provided sister with form that [employer] needs to complete to prove to [facility] that account has been set up and deposit has been made. This form will need faxed to [facility] when completed. Surgery is scheduled for tomorrow. ROBBIN will continue to follow. BRODY [place]
[2019-05-17 16:55] LABS: Bedside Glucose 226 mg/dL (70-110)
[2019-05-17] MEDS: Tamsulosin HCl 0.4 MG Capsule PO (17:12)
[2019-05-17] MEDS: Ascorbic Acid 500 MG Tablet PO (17:12)
--- NOTE | 2019-05-17 18:15 | PN_ITS ---
Patient Problems: Active and Suspected Problems Diabetic infection of left foot (Acute) DEAN (acute kidney injury) (Acute) Severe sepsis (Acute) Elevated troponin (Acute) Dehydration (Acute) Diabetic hyperosmolar non-ketotic state (Acute) Peripheral vascular disease (Suspected) Subjective: This 64 year old male with multiple comorbidities was seen bedside s/p left foot debridement of non viable soft tissue and bone including first and second ray resections. He denies fever, chills, nausea, vomiting. He reports his foot has decreased. He is ready to proceed with surgery for delayed procedure tomorrow now that his demarcation and infection are stable. He is concerned about his scab to this left thigh / knee area. - Physical Exam General: Alert, Oriented x3, Cooperative Extremities: No cyanosis, Capillary Refill Less than 3 Seconds, No Calf Tenderness - negative stafford and agustina signs bilateral, Diminished Peripheral Pulses, Edema - decreased Skin: Ulcer/ Wound - No purulence on expression or alfred necrosis. There is no odor. There is no streaking. The erythema to the ankle level has resolved. The open tissue resection amputation site is a mix of granulation tissue, fibrous, biofilm, slough, and devitalized tendon and subcutaneous tissue with exposed bone resections. Hemostasis is controlled and there is decreased drainage noted. The peripheral skin is hairless and atrophic on the left foot, - - scab medial knee / lower thigh left leg with serous drainage; no purulence or peripheral bogginess or infection Musculoskeletal: Muscle Wasting, Tenderness - open amputation is tender to palpate, - - open amputation left foot. compartments soft to palpate left lower extremity. Neurological: - - lack of epicritic sensation via light touch consistent with neuropathy Psych/Mental Status: Normal Affect, Appropriate Vital Signs Temp Pulse Resp BP Pulse Ox 97.9 F 72 18 160/78 H 94 05/17/19 19:25 05/17/19 19:25 05/17/19 19:25 05/17/19 19:25 05/17/19 19:25 Oxygen Delivery Method Room Air Weight: 110.9 kg Body Mass Index (BMI) 32.2 Finger Stick Blood Glucose 600 Intake and Output for Last 24 Hours 05/15/19 05/16/19 05/17/19 23:59 23:59 23:59 Intake Total 5131.5 / 5131.5 2534 / 2534 3906.25 / 3906.25 Output Total 8858 / 8858 8150 / 8150 4900 / 4900 Balance -3726.5 / -3726.5 -5616 / -5616 -993.75 / -993.75 Microbiology Past 72 Hours 05/11/19 08:47 Blood Culture - Final Blood Culture (Wb) - Left Hand No growth in 5 days. 05/11/19 08:40 Blood Culture - Final Blood Culture (Wb) - Right Hand No growth in 5 days. 05/10/19 05:40 Gram Stain - Final Wound Abcess - Left Foot Wound Culture - Final Klebsiella oxytoca Lactobacillus plantarum Streptococcus agalactiae (B) Enterococcus faecalis Anaerobic Culture - Final No anaerobic bacteria isolated. 05/10/19 19:11 Gram Stain - Final Biopsy - Other Wound Culture - Final Streptococcus constellatus pha Lactobacillus gasseri Anaerobic Culture - Final Lactobacillus gasseri 05/10/19 19:11 Gram Stain - Final Tissue - Other Wound Culture - Final Enterococcus faecalis Streptococcus sanguinis Actinomyces odontolyticus Anaerobic Culture - Final Lactobacillus gasseri Laboratory Tests Past 24 Hrs 05/13/19 05/17/19 10:50 05:32 Eos Smear Total Cells No Eosinophils Seen Sodium 142 Potassium 4.6 Chloride 112 H Carbon Dioxide 23.0 BUN 49 H Creatinine 2.95 H Estim Creat Clear Calc 28.97 Est GFR (MDRD) Af Amer 28 L Est GFR (MDRD) Non-Af 23 L BUN/Creatinine Ratio 16.6 Glucose 253 H Calcium 8.7 Phosphorus 3.8 Albumin 1.8 L POC Glucose 05/17/19 05/17/19 05/17/19 16:43 12:52 08:06 POC Glucose 226 H 266 H 224 H 05/16/19 21:33 POC Glucose 283 H Medical Necessity - Tobacco Use Smoking Status: Current every day smoker Tobacco Use: Cigarettes Assessment/Plan All Active Problems Foot abscess, left (Acute) Foot abscess, left (Acute) Diabetic infection of left foot (Acute) DEAN (acute kidney injury) (Acute) Severe sepsis (Acute) Elevated troponin (Acute) Dehydration (Acute) Diabetic hyperosmolar non-ketotic state (Acute) Left diabetic foot infection with associated severe sepsis and osteomyelitis left soft tissue and bone debridement including open first and second ray resection Bacteremia Uncontrolled diabetes with neuropathy Lower extremity edema left thigh wound, stable Other comorbidities I reviewed and discussed his case. He is afebrile and his vitals are stable. His leukocytosis has resolved. He continues on IV unasyn at this time to the management of infectious disease. Microbiology results were reviewed for the resected tissue and metatarsal clearance fragment with multiorganism growth. His pathology assessment was consistent with acute osteomyelitis for the resected infected tissue and was negative for osteomyelitis with the metatarsal clearance fragment. Clinically, the infection status is stabilizing to the foot now that he is s/p. He is ready for serial debridement with definitive transmetatarsal amputation and posterior leg muscle lengthening tomorrow afternoon. The goals of the surgery were reviewed. The planned procedure, benefits, risks, complications, anticipated healing time and management were reviewed. No guarantees were made. The informed surgical consent and limb will be signed. 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 To remain non weightbearing to left lower extremity with surgical shoe. I answered his questions. Orders were placed for NPO status and to hold anticoagulation medication. The surgery is tentatively scheduled for 15:45 on 05/18/19. It is noted he is amenable to go to rehabilitation or skilled facility after surgery if needed and covered. His left thigh wound is noted and appears stable. This would likely benefit from debridement and wound care. I recommend consult for this. It is above the tibial tuberosity and not currently in my scope to perform the debridement. I explained this to the patient. Medical management and preoperative optimization and DVT prophylaxis per primary team is appreciated. I will continue to follow him close while in house. Please do not hesitate to call if you have any questions. Irene Claudio DPM, [facility] [phone]
--- NOTE | 2019-05-17 20:16 | PCM.PN.REN ---
Patient Problems: Active and Suspected Problems Diabetic infection of left foot (Acute) DEAN (acute kidney injury) (Acute) Severe sepsis (Acute) Elevated troponin (Acute) Dehydration (Acute) Diabetic hyperosmolar non-ketotic state (Acute) Peripheral vascular disease (Suspected) Subjective: denies NVD, no SOB - Physical Exam General: Alert, Oriented x3, Cooperative, No apparent distress Cardiovascular: Regular rate Extremities: No edema - left foot wrapped Psych/Mental Status: Alert and oriented to time, place, person, mood and affect Vital Signs Temp Pulse Resp BP Pulse Ox 98.0 F 74 18 151/66 H 96 05/17/19 16:30 05/17/19 18:00 05/17/19 16:30 05/17/19 16:30 05/17/19 16:30 Oxygen Delivery Method Room Air Weight: 110.9 kg Body Mass Index (BMI) 32.2 Finger Stick Blood Glucose 600 Intake and Output for Last 24 Hours 05/15/19 05/16/19 05/17/19 23:59 23:59 23:59 Intake Total 5131.5 / 5131.5 2534 / 2534 3906.25 / 3906.25 Output Total 8858 / 8858 8150 / 8150 4900 / 4900 Balance -3726.5 / -3726.5 -5616 / -5616 -993.75 / -993.75 Microbiology Past 72 Hours 05/11/19 08:47 Blood Culture - Final Blood Culture (Wb) - Left Hand No growth in 5 days. 05/11/19 08:40 Blood Culture - Final Blood Culture (Wb) - Right Hand No growth in 5 days. 05/10/19 05:40 Gram Stain - Final Wound Abcess - Left Foot Wound Culture - Final Klebsiella oxytoca Lactobacillus plantarum Streptococcus agalactiae (B) Enterococcus faecalis Anaerobic Culture - Final No anaerobic bacteria isolated. 05/10/19 19:11 Gram Stain - Final Biopsy - Other Wound Culture - Final Streptococcus constellatus pha Lactobacillus gasseri Anaerobic Culture - Final Lactobacillus gasseri 05/10/19 19:11 Gram Stain - Final Tissue - Other Wound Culture - Final Enterococcus faecalis Streptococcus sanguinis Actinomyces odontolyticus Anaerobic Culture - Final Lactobacillus gasseri Laboratory Tests Past 24 Hrs 05/13/19 05/17/19 10:50 05:32 Eos Smear Total Cells No Eosinophils Seen Sodium 142 Potassium 4.6 Chloride 112 H Carbon Dioxide 23.0 BUN 49 H Creatinine 2.95 H Estim Creat Clear Calc 28.97 Est GFR (MDRD) Af Amer 28 L Est GFR (MDRD) Non-Af 23 L BUN/Creatinine Ratio 16.6 Glucose 253 H Calcium 8.7 Phosphorus 3.8 Albumin 1.8 L POC Glucose 05/17/19 05/17/19 05/17/19 16:43 12:52 08:06 POC Glucose 226 H 266 H 224 H 05/16/19 21:33 POC Glucose 283 H Medical Necessity - Tobacco Use Smoking Status: Current every day smoker Tobacco Use: Cigarettes Assessment/Plan All Active Problems Foot abscess, left (Acute) Foot abscess, left (Acute) Diabetic infection of left foot (Acute) DEAN (acute kidney injury) (Acute) Severe sepsis (Acute) Elevated troponin (Acute) Dehydration (Acute) Diabetic hyperosmolar non-ketotic state (Acute) 1. DEAN due to ATN from sepsis, hypotension, rhabdo. Nonoliguric with creatinine slightly improved. Continue iv fluids for negative balance 2. Diabetic foot ulcer s/p ray amputation, debridement 3. Sepsis on iv antibx followed. 4. HTN stable 5. DM2 poorly controlled due to medical noncompliance, infection
[2019-05-17 22:00] LABS: Bedside Glucose 269 mg/dL (70-110)
[2019-05-17] MEDS: 0.9% NaCl Peripheral Flush Adult/Peds IV (22:13)
[2019-05-18] VITALS (17 sets, daily range): BP systolic 141–179; BP diastolic 57–84; PULSE 62–79; RESP 16–24; TEMP 36.5–37.1; O2SAT 90–96; BMI 32.2; BMI 32.3
[2019-05-18] MEDS: 0.9% Normal Saline 1,000 ML 75 ML IV ×3 (01:38→17:25)
[2019-05-18 06:04] LABS: Absolute Lymphocyte Count 1.76 X10^3/uL (0.83-4.51); Absolute Neutrophil Count 6.6 X10^3/uL (2.0-7.7); Basophil# 0.07 X10^3/uL; Basophil% 0.7 % (0-1); Eosinophil# 0.28 X10^3/uL; Eosinophils% 2.9 % (0-5); Hematocrit 35.9 % (40-54); Hemoglobin 11.7 g/dL (13.0-16.5); Lymphocyte # 1.76 X10^3/ul (4.0); Lymphocyte % 18.1 % (19-41); Mean Corp Hgb Conc 32.6 g/dL (32-36); Mean Platelet Vol. 9.9 fl (6.2-12.0); Monocyte# 0.83 X10^3/uL; Monocyte% 8.5 % (0-10); NRBC Flagged by Analyzer 0 % (0-5); Neutrophil # 6.62 X10^3/uL (2.7-7.7); Neutrophil % 68.2 % (47-70); Platelet Count 325 K/mm3 (150-450); RBC Distribution Width SD 44.9 fl (35.1-43.9); Red Blood Count 3.78 M/mm3 (4.6-6.2); White Blood Count 9.7 K/mm3 (4.4-11.0)
[2019-05-18 06:09] LABS: Anion Gap 7 (5-15); BUN 45 mg/dL (7-18); BUN/Creat Ratio 16.4 RATIO (10-20); Calcium,Total 8.5 mg/dL (8.5-10.1); Chloride 112 mmol/L (98-107); Creatinine, Serum 2.74 mg/dL (0.70-1.30); EST Glomerular Filtration Rate 25 mL/min (>60); Est Glom Filt Rate - Afr Amer 30 mL/min (>60); Estimated Creatinine Clearance 31.19 ml/min; Glucose 160 mg/dL (74-106); Potassium 4.1 mmol/L (3.5-5.1); Sodium Level 144 mmol/L (136-145)
[2019-05-18] MEDS: Insulin Lispro 100 UNIT/ML INSULN.PEN SC ×4 (09:33→11:30)
--- NOTE | 2019-05-18 09:37 | PN.RENAL_ITS ---
Patient Problems: Active and Suspected Problems Diabetic infection of left foot (Acute) DEAN (acute kidney injury) (Acute) Severe sepsis (Acute) Elevated troponin (Acute) Dehydration (Acute) Diabetic hyperosmolar non-ketotic state (Acute) Peripheral vascular disease (Suspected) Subjective: no complaints of nausea, vomiting, SOB. - Physical Exam General: Alert, Oriented x3, Cooperative Lungs: Clear to auscultation Cardiovascular: Regular rate Extremities: No edema Psych/Mental Status: Alert and oriented to time, place, person, mood and affect Vital Signs Temp Pulse Resp BP Pulse Ox 98.0 F 64 18 154/70 H 93 05/18/19 05:00 05/18/19 07:26 05/18/19 05:00 05/18/19 05:00 05/18/19 05:00 Oxygen Delivery Method Room Air Weight: 110.9 kg Body Mass Index (BMI) 32.2 Finger Stick Blood Glucose 600 Intake and Output for Last 24 Hours 05/16/19 05/17/19 05/18/19 23:59 23:59 23:59 Intake Total 2534 / 2534 5270.75 / 5270.75 121.25 / 121.25 Output Total 8150 / 8150 7500 / 7500 1600 / 1600 Balance -5616 / -5616 -2229.25 / -2229.25 -1478.75 / -1478.75 Microbiology Past 72 Hours 05/11/19 08:47 Blood Culture - Final Blood Culture (Wb) - Left Hand No growth in 5 days. 05/11/19 08:40 Blood Culture - Final Blood Culture (Wb) - Right Hand No growth in 5 days. 05/10/19 05:40 Gram Stain - Final Wound Abcess - Left Foot Wound Culture - Final Klebsiella oxytoca Lactobacillus plantarum Streptococcus agalactiae (B) Enterococcus faecalis Anaerobic Culture - Final No anaerobic bacteria isolated. 05/10/19 19:11 Gram Stain - Final Biopsy - Other Wound Culture - Final Streptococcus constellatus pha Lactobacillus gasseri Anaerobic Culture - Final Lactobacillus gasseri 05/10/19 19:11 Gram Stain - Final Tissue - Other Wound Culture - Final Enterococcus faecalis Streptococcus sanguinis Actinomyces odontolyticus Anaerobic Culture - Final Lactobacillus gasseri Laboratory Tests Past 24 Hrs 05/13/19 05/18/19 05/18/19 10:50 05:36 05:36 WBC 9.7 RBC 3.78 L Hgb 11.7 L Hct 35.9 L MCV 95.0 H MCH 31.0 MCHC 32.6 RDW Std Deviation 44.9 H RDW Coeff of Fatuma 13.0 Plt Count 325 MPV 9.9 Immature Gran % (Auto) 1.600 H Neut % (Auto) 68.2 Lymph % (Auto) 18.1 L [place] % (Auto) 8.5 Eos % (Auto) 2.9 Baso % (Auto) 0.7 Absolute Neuts (auto) 6.6 Absolute Lymphs (auto) 1.76 Nucleated RBC % 0 Eos Smear Total Cells No Eosinophils Seen Sodium 144 Potassium 4.1 Chloride 112 H Carbon Dioxide 25.0 Anion Gap 7 BUN 45 H Creatinine 2.74 H Estim Creat Clear Calc 31.19 Est GFR (MDRD) Af Amer 30 L Est GFR (MDRD) Non-Af 25 L BUN/Creatinine Ratio 16.4 Glucose 160 H Calcium 8.5 POC Glucose 05/17/19 05/17/19 05/17/19 21:43 16:43 12:52 POC Glucose 269 H 226 H 266 H Medical Necessity - Tobacco Use Smoking Status: Current every day smoker Tobacco Use: Cigarettes Assessment/Plan All Active Problems Foot abscess, left (Acute) Foot abscess, left (Acute) Diabetic infection of left foot (Acute) DEAN (acute kidney injury) (Acute) Severe sepsis (Acute) Elevated troponin (Acute) Dehydration (Acute) Diabetic hyperosmolar non-ketotic state (Acute) 1. DEAN due to ATN from sepsis, hypotension, rhabdo. creatinine continues to improve. Continue iv fluids for negative balance 2. Diabetic foot ulcer s/p ray amputation, debridement. OR today 3. Sepsis, afebrile, leukocytosis improving 4. HTN stable 5. DM2 poorly controlled due to medical noncompliance, infection
[2019-05-18 09:40] LABS: Bedside Glucose 157 mg/dL (70-110)
--- NOTE | 2019-05-18 10:41 | PN.ID_ITS ---
Patient Problems: Active and Suspected Problems Diabetic infection of left foot (Acute) DEAN (acute kidney injury) (Acute) Severe sepsis (Acute) Elevated troponin (Acute) Dehydration (Acute) Diabetic hyperosmolar non-ketotic state (Acute) Peripheral vascular disease (Suspected) Subjective: Feeling ok, OR today, no fever - Physical Exam General: Alert, Cooperative, No apparent distress Lungs: Clear to auscultation, Normal air movement Cardiovascular: Regular rate, Regular Rhythm Abdomen: Soft, Non Tender, Non-Distended Skin: Ulcer/ Wound - L thigh shallow scabbed ulcer. L foot wrapped, reviewed photo. Vital Signs Temp Pulse Resp BP Pulse Ox 98.0 F 64 18 154/70 H 93 05/18/19 05:00 05/18/19 07:26 05/18/19 05:00 05/18/19 05:00 05/18/19 05:00 Oxygen Delivery Method Room Air Weight: 110.9 kg Body Mass Index (BMI) 32.2 Finger Stick Blood Glucose 600 Intake and Output for Last 24 Hours 05/16/19 05/17/19 05/18/19 23:59 23:59 23:59 Intake Total 2534 / 2534 5270.75 / 5270.75 233.25 / 233.25 Output Total 8150 / 8150 7500 / 7500 1600 / 1600 Balance -5616 / -5616 -2229.25 / -2229.25 -1366.75 / -1366.75 Microbiology Past 72 Hours 05/11/19 08:47 Blood Culture - Final Blood Culture (Wb) - Left Hand No growth in 5 days. 05/11/19 08:40 Blood Culture - Final Blood Culture (Wb) - Right Hand No growth in 5 days. 05/10/19 05:40 Gram Stain - Final Wound Abcess - Left Foot Wound Culture - Final Klebsiella oxytoca Lactobacillus plantarum Streptococcus agalactiae (B) Enterococcus faecalis Anaerobic Culture - Final No anaerobic bacteria isolated. 05/10/19 19:11 Gram Stain - Final Biopsy - Other Wound Culture - Final Streptococcus constellatus pha Lactobacillus gasseri Anaerobic Culture - Final Lactobacillus gasseri 05/10/19 19:11 Gram Stain - Final Tissue - Other Wound Culture - Final Enterococcus faecalis Streptococcus sanguinis Actinomyces odontolyticus Anaerobic Culture - Final Lactobacillus gasseri Laboratory Tests Past 24 Hrs 05/13/19 05/18/19 05/18/19 10:50 05:36 05:36 WBC 9.7 RBC 3.78 L Hgb 11.7 L Hct 35.9 L MCV 95.0 H MCH 31.0 MCHC 32.6 RDW Std Deviation 44.9 H RDW Coeff of Fatuma 13.0 Plt Count 325 MPV 9.9 Immature Gran % (Auto) 1.600 H Neut % (Auto) 68.2 Lymph % (Auto) 18.1 L [place] % (Auto) 8.5 Eos % (Auto) 2.9 Baso % (Auto) 0.7 Absolute Neuts (auto) 6.6 Absolute Lymphs (auto) 1.76 Nucleated RBC % 0 Eos Smear Total Cells No Eosinophils Seen Sodium 144 Potassium 4.1 Chloride 112 H Carbon Dioxide 25.0 Anion Gap 7 BUN 45 H Creatinine 2.74 H Estim Creat Clear Calc 31.19 Est GFR (MDRD) Af Amer 30 L Est GFR (MDRD) Non-Af 25 L BUN/Creatinine Ratio 16.4 Glucose 160 H Calcium 8.5 POC Glucose 05/18/19 05/17/19 05/17/19 09:32 21:43 16:43 POC Glucose 157 H 269 H 226 H 05/17/19 12:52 POC Glucose 266 H Medical Necessity - Tobacco Use Smoking Status: Current every day smoker Tobacco Use: Cigarettes Route of nutrition/ use of supplements: [] Nutritional Intake: [] IV Site: [] Dyer Catheter: [] - Assessment/Plan Antibiotics: [] Assessment/Plan: [] Active and Suspected Problems Diabetic infection of left foot (Acute) 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 Staph aureus pcr was neg from foot. Bcx x2 (+) alpha strep. Surg cxs with enterococcus, strep, klebs, GPC, acinetobacter, GPR. TTE with no veg seen. No fever. Now s/p I&D 05/[address] Claudio. DEAN slowly improving. 05/13 narrowed abx to unasyn. OR today for amp. Will follow
[2019-05-18 11:20] LABS: Bedside Glucose 184 mg/dL (70-110)
--- NOTE | 2019-05-18 14:09 | CASEMGMT ---
ROBBIN checked in with patient to see if his sister had left a paper for SW. He said she won't be in until after 230. ROBBIN will check back after 230. Kylah FRANZ MSW
--- NOTE | 2019-05-18 14:40 | NURSING ---
verbal reoprt called to elisa SULLIVAN in [place]
--- NOTE | 2019-05-18 14:47 | PCM.PROGNOTE ---
Patient Problems: Active and Suspected Problems Diabetic infection of left foot (Acute) DEAN (acute kidney injury) (Acute) Severe sepsis (Acute) Elevated troponin (Acute) Dehydration (Acute) Diabetic hyperosmolar non-ketotic state (Acute) Peripheral vascular disease (Suspected) Subjective: No complaints. Agreeable to surgery. No fevers/chills. No SOB or cough. No CP/palp/tightness. No dizziness/LH. - Physical Exam General: Alert, Oriented x3, Cooperative HEENT: Atraumatic, PERRLA, EOMI, Normocephalic Neck: Supple, No JVD, Negative Carotid Bruits Lungs: Clear to auscultation, Normal air movement Cardiovascular: Regular rate, No murmurs Abdomen: Bowel Sounds Present, Soft, Non Tender Extremities: No edema, Capillary Refill Less than 3 Seconds Skin: No rashes, No breakdown Musculoskeletal: No Tenderness to Palpation of Joints or Extremities Neurological: Cranial nerves II-XII grossly intact Psych/Mental Status: Normal Affect, Appropriate, Alert and oriented to time, place, person, mood and affect Vital Signs Temp Pulse Resp BP Pulse Ox 98.3 F 66 16 155/57 H 95 05/18/19 11:11 05/18/19 11:11 05/18/19 11:11 05/18/19 11:11 05/18/19 11:11 Oxygen Delivery Method Room Air Weight: 244 lb 7.882 oz Body Mass Index (BMI) 32.2 Finger Stick Blood Glucose 600 Intake and Output for Last 24 Hours 05/16/19 05/17/19 05/18/19 23:59 23:59 23:59 Intake Total 2534 / 2534 5270.75 / 5270.75 1091.25 / 1091.25 Output Total 8150 / 8150 7500 / 7500 2300 / 2300 Balance -5616 / -5616 -2229.25 / -2229.25 -1208.75 / -1208.75 Microbiology Past 72 Hours 05/11/19 08:47 Blood Culture - Final Blood Culture (Wb) - Left Hand No growth in 5 days. 05/11/19 08:40 Blood Culture - Final Blood Culture (Wb) - Right Hand No growth in 5 days. 05/10/19 05:40 Gram Stain - Final Wound Abcess - Left Foot Wound Culture - Final Klebsiella oxytoca Lactobacillus plantarum Streptococcus agalactiae (B) Enterococcus faecalis Anaerobic Culture - Final No anaerobic bacteria isolated. 05/10/19 19:11 Gram Stain - Final Biopsy - Other Wound Culture - Final Streptococcus constellatus pha Lactobacillus gasseri Anaerobic Culture - Final Lactobacillus gasseri 05/10/19 19:11 Gram Stain - Final Tissue - Other Wound Culture - Final Enterococcus faecalis Streptococcus sanguinis Actinomyces odontolyticus Anaerobic Culture - Final Lactobacillus gasseri Laboratory Tests Past 24 Hrs 05/18/19 05/18/19 05:36 05:36 WBC 9.7 RBC 3.78 L Hgb 11.7 L Hct 35.9 L MCV 95.0 H MCH 31.0 MCHC 32.6 RDW Std Deviation 44.9 H RDW Coeff of Fatuma 13.0 Plt Count 325 MPV 9.9 Immature Gran % (Auto) 1.600 H Neut % (Auto) 68.2 Lymph % (Auto) 18.1 L [place] % (Auto) 8.5 Eos % (Auto) 2.9 Baso % (Auto) 0.7 Absolute Neuts (auto) 6.6 Absolute Lymphs (auto) 1.76 Nucleated RBC % 0 Sodium 144 Potassium 4.1 Chloride 112 H Carbon Dioxide 25.0 Anion Gap 7 BUN 45 H Creatinine 2.74 H Estim Creat Clear Calc 31.19 Est GFR (MDRD) Af Amer 30 L Est GFR (MDRD) Non-Af 25 L BUN/Creatinine Ratio 16.4 Glucose 160 H Calcium 8.5 POC Glucose 05/18/19 05/18/19 05/17/19 11:05 09:32 21:43 POC Glucose 184 H 157 H 269 H 05/17/19 16:43 POC Glucose 226 H Medical Necessity - Tobacco Use Smoking Status: Current every day smoker Tobacco Use: Cigarettes Assessment/Plan All Active Problems Foot abscess, left (Acute) Foot abscess, left (Acute) Diabetic infection of left foot (Acute) DEAN (acute kidney injury) (Acute) Severe sepsis (Acute) Elevated troponin (Acute) Dehydration (Acute) Diabetic hyperosmolar non-ketotic state (Acute) 1. Acute severe sepsis, bacteremia, 2/2 LLE diabetic foot wound - continue Ampicillin. Blood cx now negative. echo without valvular involvement. Surgery today - transmet. 2. DMt2 with poor control. A1C 13.3. Glucose continues to improve. Will defer adjustments today given that he is going to the OR. 3. DEAN - 2/2 sepsis and urinary retention. Continued gradual improvement. Neph following. 500cc retained, singleton placed. Flomax started. Renal US is normal. Output is good. Trend. Gently IV fluids given. Will need voiding trial prior to DC. 4. NSTEMI - initial indeterminate trop trended down, no CP, tele changes. Echo with some wall motion abnormalities, EF 55%, St1 diastolic dysfxn. 5. Acute rhabdomyolysis - resolved. 6. Hyponatremia resolved. 7. HTN stable 8. Nicotine abuse - will complicate #1. Patch provided. DVT ppx: lovenox This patient was seen by Filiberto Camejo PA-C under the supervision of Doctor Garcia.
--- NOTE | 2019-05-18 15:30 | RAD_ITS ---
STUDY: X-RAY - LEFT FOOT CLINICAL: Male, 64 years old. Transmetatarsal amputation TECHNIQUE: 3 intraoperative view(s) of the foot. COMPARISON: None. FINDINGS: Transmetatarsal amputation of the foot. Bony details are limited. RAD/Foot 2 Views IMPRESSION: Transmetatarsal amputation of the foot. Electronically Signed: Melvin Boateng DO at 18:39 EDT Tel [phone], Service support ,
[2019-05-18 15:31] LABS: Bedside Glucose 125 mg/dL (70-110)
[2019-05-18] MEDS: Bupivacaine Mpf 0.5% 30 ML VIAL (15:36)
--- NOTE | 2019-05-18 15:45 | BON_PTH ---
PATIENT: GEN SIM LOC: [facility] U#:[id number] AGE/SX: 64/M ROOM: [facility] RE05/10/[address]: Dr. Rosales Aguilar MD : [id number] BED: 1 DIS: 05/21/2019 SPEC #: [id number] RECD: 05/19/19 07:39 STATUS: LEELA RE #: [id number] SERAFIN: 05/18/19 15:[address]: Irene Claudio DEPT: SURGICAL PATHOLOGY RECD BY: Nicolle Sarmiento ENTERED: 05/19/19 09:33 SP TYPE: Bone OTHR DR: Dr. Mary Marsh, DO Dr. Shivani Vasquez, DO Dr. Phong Garcia, DO MD Dr. Teo Driver MD No Primary Care Phys Tissues: A - Bone of foot, NOS B - Bone of foot, NOS Procedures: PAS Fungus (control) Decalcification bone/plaque Special Stain Group I Surgery Specimen Level III Surgery Specimen Level IV AFB Stain (control) HEADER OPERATION: Left foot debridement of soft tissue and bone PRE-OP DIAGNOSIS: Diabetic infection of left foot TISSUE SUBMITTED: A. Left foot, soft tissue and bone, B. Left foot, clearance fragment MICROSCOPIC DIAGNOSIS A. Left foot tissue and bone, amputation: Focal ulceration, acute and chronic inflammation and granulation tissue reaction. Pieces of bone with focal acute osteomyelitis and reactive changes. Special stains for acid fast bacilli and fungi are negative for organisms; matched controls are appropriate. B. Left foot, clearance fragment: A piece of bone with chronic inflammation and reactive changes. Negative for acute osteomyelitis. SJ:rg 05/25/19 COMMENT Case has been reviewed in consultation with Dr. Georges who concurs with the above diagnosis. IDC:AM MICROSCOPIC DESCRIPTION Slides are reviewed. GROSS DESCRIPTION A. Received in fixative is one container labeled with the patient's name and designated left foot soft tissue and bone. The specimen consists of a portion of foot containing three toes measuring 8 x 7 x 2 cm. The big toe and adjacent second toe is absent. Also present in the container are multiple detached pieces of soft tissue measuring in aggregate 6.5 x 5 x 2 cm. Also present in the container are 5 pieces of bone most consistent with metatarsal bone measuring in aggregate 8 x 5 x 3 cm. A focal area of ulceration is noted close to the third toe. Treating Engineer Helper sections are submitted as follows: 1-2 - soft tissue, 3-7 - bone after decalcification. B. Received in fixative is one container labeled with the patient's name and designated left foot clearance fragment. The specimen consists of a piece of bone measuring 1.2 x 0.3 x 0.2 cm. The entire specimen is submitted in one cassette after decalcification. / GINNY:sp 05/19/19 TC:2 CPT: 45435, 63158, 43073 x2, 78399 x2
--- NOTE | 2019-05-18 18:02 | RAD_ITS ---
REPORT STUDY: X-RAY - LEFT FOOT CLINICAL: Male, 64 years old. Postop TECHNIQUE: 3 view(s) of the foot. COMPARISON: None. FINDINGS: Normal talus, calcaneus, and tarsal bones. Normal visualized subtalar, talonavicular, calcaneocuboid, tarsal and tarsometatarsal articulations. Status post transmetatarsal amputation of the toes.. Postsurgical soft tissue changes at the stump. RAD/Foot min 3 Views IMPRESSION: Status post transmetatarsal amputation of the foot with postsurgical changes. Electronically Signed: Melvin Boateng DO at 18:37 EDT Tel [phone], Service support ,
--- NOTE | 2019-05-18 18:07 | PCM.OPRPT ---
Problem List (1) Foot abscess, left Status: Acute (2) Chronic ulcer of left foot with necrosis of bone Status: Chronic (3) Diabetic infection of left foot Status: Acute (4) Osteomyelitis of great toe of left foot Status: Chronic (5) Severe sepsis Status: Acute (6) Type 2 diabetes mellitus with diabetic polyneuropathy Status: Chronic Report of Operation Date of Procedure: 05/18/19 Pre-Operative Diagnosis: Left foot open first and second ray resection secondary to abscess and osteomyelitis. Gastrocnemius equinus left Post-Operative Diagnosis: Left foot open first and second ray resection secondary to abscess and osteomyelitis. Gastrocnemius equinus left. Continued abscess left foot Surgery/Procedure Performed:: Left transmetatarsal amputation with partial complex closure. Left open gastrocnemius recession Description of Surgical Findings:: Hemostasis: Well-padded pneumatic left thigh tourniquet, 315 mmHg, 47 minutes Materials: 3-0 and 2-0 Prolene, 2-0 Vicryl Complications: None Specimen sent The patient tolerated the procedure and anesthesia well. He was transported to the PACU vital signs stable and vascular status intact to the left lower extremity. Postoperative x-rays were reviewed demonstrating adequate transmetatarsal amputation resection without acute injuries. Maintained amputation parabola is noted. He will be transferred back to the progressive care unit upon continued stability. All postoperative orders were entered electronically. clinical cytogeneticist scientist: none - Surgeon: Irene Claudio D.P.M. Type of Anesthesia:: General - LMA, Local - Preoperative: 18 cc of 1:1 mixture of 1% lidocaine plain and 0.5% Marcaine plain administered in left ankle block fashion proximal to the infection site Intraoperative: A total of 8 cc of 1% lidocaine with epinephrine was administered at the open gastrocnemius site Specimen's removed: 1. Soft tissue and bone left foot sent to pathology. 2. Soft tissue and bone sent to microbiology for aerobic, anaerobic, acid-fast, fungal. 3. Clearance fragment metatarsal sent to pathology. 4. Clearance fragment metatarsal sent to microbiology for aerobic, anaerobic, acid-fast, fungal Estimated Blood Loss (mL): < 400 mL Description of Procedure: Indications: This 64-year-old male with significant past medical history of diabetes with neuropathy, obstructive sleep apnea, hypertension, delayed wound healing of the left foot for approximately 1-1/2 years. He had a left foot abscess and suspected osteomyelitis with unsalvageable forefoot. He underwent an incision and drainage with open first and second ray resection one week ago in which his sepsis and clinical salvageability of the foot has been restored. He remained afebrile and his leukocytosis has improved. It is noted he also had rhabdomyolysis and acute kidney injury secondary to his sepsis. Over the past week the infection and salvageable tissue has demarcated. His ankle dorsiflexion availability was tested while he was sedated and there is decreased ankle dorsiflexion with the knee extended and this improves when the knee is flexed. This is consistent with gastrocnemius equinus. The preoperative x-rays do not demonstrate fractures, dislocations, or soft tissue emphysema adjacent to the ulcer site. The previous first and second ray resections are noted. His blood cultures confirm bacteremia. Cultures have been monitored and infectious disease is on the case. He continues on IV Unasyn at this time. He was also evaluated for vascular impairment and no intervention is recommended at this time. The preoperative indications, planned procedure, possible benefits, risk, complications, and anticipated healing time management were discussed in detail the patient. He understands and elects to proceed with surgery at this time. No guarantees were made. He understands complications and risks include but are not limited to the following: pain, swelling, scarring, delayed or nonhealing, continued infection, loss of limb, function, life, blood clot, allergic reaction, chronic pain, and need for further surgeries. This is a planned staged procedure. No guarantees were made. The informed surgical consent and limb were signed. I answered all his questions. Preoperative optimization was assisted with the hospitalist physician. Procedure detail: The patient was transported to the operating room via cart and placed on the operating table in the supine position. Final verification of patient, surgery, limb designation was performed via the timeout procedure. A well-padded pneumatic left thigh tourniquet was placed. He is already receiving IV antibiotics on the medical floor including Unasyn. LMA was initially by the anesthesia team. I administered the local anesthetic as noted proximal to the cellulitis area as noted. The left lower extremity was prepped and draped in the usual aseptic manner. Attention was first directed to the posterior left leg for the gastrocnemius recession procedure in which no infection is noted at this level. The procedure began as the following: Several fingerbreadths distal to the medial gastrocnemius head, a 3 cm linear incision was made in the skin at the posterior medial aspect. The lidocaine with epinephrine was injected at this site for pain control prior to this incision, and also to control local hemostasis. Blunt dissection was performed until the posterior compartment fascia was identified. A rent was made in this structure and the gastrocnemius aponeurosis was identified and clearly from the underlying soleus aponeurosis. A 15 blade and tenotomy scissors were used to resect this in a transverse manner taking care to identify, protect, and retract all neurovascular structures at this time and throughout the remainder of the procedure. This was adequately resected and improved ankle dorsiflexion was noted of approximately 10 degrees with the knee flexed and extended. This was copiously irrigated with normal saline. No pulsatile bleeding was noted and no abnormal tissues were identified at this level. Vicryl was used to reapproximate the overlying fascial layer and the skin was reapproximated with Prolene utilizing horizontal mattress technique. Attention was next directed to the open amputation of the left foot. A 15 blade was used to make a fishmouth incision to resect the remaining third fourth and fifth digits in total. This was removed from the table. A martin elevator was used to reflect the soft tissue off of the metatarsals proximal to the infection area. A sagittal saw was used to perform the transmetatarsal amputation taking care to bevel the stump site to create a good parabola. Intraoperative x-ray was used to confirm adequate resection. No additional acute injuries were noted. Next, attention was directed to the plantar soft tissue in which this was debulked in any dysvascular and devitalized structures such as plantar plates, tendons, and devitalized subcutaneous tissues which was excised. All of the soft tissue and bone was sent to pathology and microbiology. It is noted that there was purulence and devitalization of the abductor hallucis muscle belly which an additional 5 cc of purulence was expressed coming from the arch of the foot. No purulence was expressed upon palpation to the medial posterior leg compartments. After debridement of these the aforementioned infected muscle bellies and saline irrigation, no additional purulence, necrosis, or odor were noted. Additional copious saline irrigation was performed. At this time, clean gloves, instrumentation, and drapery were utilized. A fresh rongeur was used to obtain clearance fragments of the first metatarsal in which these were sent to both microbiology and pathology. The tourniquet was deflated at this time and brisk capillary refill time was noted to dorsal and plantar aspects of the open amputation site. Prolene was used to form stick ties to address the visualized plantar venous complex. Electrocauterization and pressure was utilized to further control hemostasis. No pulsatile bleeding or purulence was noted. Retention vertical, horizontal mattress, and simple suture techniques were used to the central and lateral aspects of the amputation stump site. The medial aspect was left open and this was further packed with Betadine soaked gauze. The remaineder of the postoperative dressing consisted of Betadine soaked gauze, abdominal pads, Kerlix, and Angus wrap. Additionally, a well-padded left posterior mold was applied with the left lower extremity in a rectus position utilizing webril and angus wrap. After procedure: The patient tolerated the procedure and anesthesia well. He was transported to the PACU with vital signs stable and vascular status intact to the left lower extremity. He was advised to remain nonweightbearing to left lower extremity. He was advised to elevate for pain and inflammation management. He will be transferred back to the progressive care unit upon continued stability. This is a limb and life salvage attempt. To continue on IV antibiotics per infectious disease. Specimen results from surgery are pending. Lab trends will continued to be followed. To maintain a strict nonweightbearing status to left lower extremity. I recommend transition to a rehabilitation unit to aid in compliance and postoperative care. Continue glycemic control and nutritional supplementation are recommended to optimize healing. Postoperative orders were entered electronically. I will continue to follow him closely while in house. Irene Claudio DPM, [facility] Grafts/Implants Used: none - Complications none - Admit VTE Documentation VTE Present on Admission: No VTE Mechan Device Prophylaxis: SCD's VTE Pharm Prophylaxis ordered?: Yes
[2019-05-18 18:21] LABS: Bedside Glucose 137 mg/dL (70-110)
[2019-05-18] MEDS: Morphine 4 MG/ML Syringe IV (20:02)
[2019-05-18] MEDS: Docusate Sodium 100 MG Capsule PO (22:56)
[2019-05-18] MEDS: oxyCODONE 5 MG Tablet 10 MG PO (22:56)
[2019-05-18] MEDS: Famotidine 20 MG Tablet PO (22:56)
[2019-05-18 23:36] LABS: Bedside Glucose 199 mg/dL (70-110)
[2019-05-19] VITALS (11 sets, daily range): BP systolic 139–150; BP diastolic 68–75; PULSE 61–84; RESP 14–18; TEMP 36.7–37.1; O2SAT 92–94; BMI 32.3
[2019-05-19] MEDS: Morphine 4 MG/ML Syringe IV ×3 (01:02→18:05)
[2019-05-19 06:16] LABS: Absolute Lymphocyte Count 1.34 X10^3/uL (0.83-4.51); Absolute Neutrophil Count 9.3 X10^3/uL (2.0-7.7); Basophil# 0.06 X10^3/uL; Basophil% 0.5 % (0-1); Eosinophil# 0.02 X10^3/uL; Eosinophils% 0.2 % (0-5); Hematocrit 37.5 % (40-54); Hemoglobin 12.2 g/dL (13.0-16.5); Lymphocyte # 1.34 X10^3/ul (4.0); Lymphocyte % 11.5 % (19-41); Mean Corp Hgb Conc 32.5 g/dL (32-36); Mean Corpuscular Hgb 31.4 pg (27.0-32.0); Mean Corpuscular Volume 96.4 fL (80-94); Mean Platelet Vol. 9.5 fl (6.2-12.0); Monocyte# 0.83 X10^3/uL; Monocyte% 7.1 % (0-10); NRBC Flagged by Analyzer 0 % (0-5); Neutrophil # 9.31 X10^3/uL (2.7-7.7); Neutrophil % 79.7 % (47-70); Platelet Count 297 K/mm3 (150-450); RBC Distribution Width CV 12.8 % (11.6-14.6); RBC Distribution Width SD 45.4 fl (35.1-43.9); Red Blood Count 3.89 M/mm3 (4.6-6.2); White Blood Count 11.7 K/mm3 (4.4-11.0)
[2019-05-19 06:40] LABS: Anion Gap 6 (5-15); BUN 40 mg/dL (7-18); BUN/Creat Ratio 17.1 RATIO (10-20); Calcium,Total 7.9 mg/dL (8.5-10.1); Chloride 112 mmol/L (98-107); Creatinine, Serum 2.34 mg/dL (0.70-1.30); EST Glomerular Filtration Rate 30 mL/min (>60); Est Glom Filt Rate - Afr Amer 36 mL/min (>60); Estimated Creatinine Clearance 36.52 ml/min; Glucose 206 mg/dL (74-106); Potassium 4.6 mmol/L (3.5-5.1); Sodium Level 143 mmol/L (136-145)
[2019-05-19] MEDS: 0.9% Normal Saline 1,000 ML 75 ML IV ×2 (06:46→18:09)
[2019-05-19] MEDS: Insulin Lispro 100 UNIT/ML INSULN.PEN SC ×6 (08:11→16:52)
[2019-05-19] MEDS: Ascorbic Acid 500 MG Tablet PO ×2 (08:13→16:07)
[2019-05-19] MEDS: Calcium (Elemental) 500 MG Tablet PO (08:13)
[2019-05-19] MEDS: Multivitamins,Therapeutic Tablet 1 TABLET PO (08:13)
[2019-05-19] MEDS: Docusate Sodium 100 MG Capsule PO ×2 (08:14→21:30)
[2019-05-19] MEDS: Famotidine 20 MG Tablet PO ×2 (08:20→21:30)
[2019-05-19 08:25] LABS: Bedside Glucose 213 mg/dL (70-110)
--- NOTE | 2019-05-19 08:43 | NURSING ---
Dressing to the left foot is D&I. Will leave in place. Podiatry has been changing dressings daily and patient is POD#1 left transmetatarsal amputation with complex closure per Dr Claudio. no breakthrough drainage noted. pt states there has been moderate discomfort and is slightly irritable this am. will follow as needed.
--- NOTE | 2019-05-19 10:11 | CASEMGMT ---
ROBBIN spoke with patient. His sister left documents in room. SW looked and form SW needs is not there. ROBBIN called patient's sister. She said she went to [facility] and they told her she needs an regulatory attorney to start the trust. ROBBIN told her this is not accurate and some pabon are not familiar with this type of trust. She said her sister in law works at a longterm in [facility]. She is familiar with these QIT's and told her to try [facility]. She works today until 2p and will be in after that. ROBBIN told her ROBBIN will call [facility] in the meantime to see if they are familiar with this type of trust. ROBBIN called [employer] and person ROBBIN should talk with was with a customer. Someone will call ROBBIN back. Await return call. ROBBIN also called [facility] to see what bank they go through. Charissa was checking and said she would get back with ROBBIN. ROBBIN confirmed that they will accept patient as long as he has a pending Medicaid number and the QIT set up. She said that is accurate. ROBBIN also gave patient a packet that [facility] sent SW for patient. There are various forms patient needs to sign and return. Kylah FRANZ MSW
[2019-05-19 10:19] LABS: Myoglobin, Urine 18 ng/mL (0-13)
[2019-05-19] MEDS: oxyCODONE 5 MG Tablet 10 MG PO ×2 (10:30→16:07)
[2019-05-19] MEDS: oxyCODONE HCl Cr 10 MG Tablet PO ×2 (11:33→21:30)
[2019-05-19 11:51] LABS: Bedside Glucose 256 mg/dL (70-110)
--- NOTE | 2019-05-19 11:57 | CASEMGMT ---
ROBBIN checked in with patient and he completed documents in Medicaid packet. His sister will sign the one form when she comes in to [facility]. Kylah FRANZ MSW
--- NOTE | 2019-05-19 14:41 | PCM.PROGNOTE ---
Patient Problems: Active and Suspected Problems Diabetic infection of left foot (Acute) DEAN (acute kidney injury) (Acute) Severe sepsis (Acute) Elevated troponin (Acute) Dehydration (Acute) Diabetic hyperosmolar non-ketotic state (Acute) Peripheral vascular disease (Suspected) Subjective: Pt complains of severe pain following surgery, and that the medications are wearing off too quickly. No fevers/chills. No SOB/cough. C/o sore throat since surgery. Tolerating diet, no N/V. Last BM yesterday - normal. - Physical Exam General: Alert, Oriented x3, Cooperative HEENT: Atraumatic, PERRLA, EOMI, Normocephalic Neck: Supple, No JVD, Negative Carotid Bruits Lungs: Clear to auscultation, Normal air movement Cardiovascular: Regular rate, No murmurs Abdomen: Bowel Sounds Present, Soft, Non Tender Extremities: No edema, Capillary Refill Less than 3 Seconds Skin: No rashes, No breakdown Musculoskeletal: No Tenderness to Palpation of Joints or Extremities, - - wound dressed appropriately. Neurological: Cranial nerves II-XII grossly intact Psych/Mental Status: Normal Affect, Appropriate, Alert and oriented to time, place, person, mood and affect Vital Signs Temp Pulse Resp BP Pulse Ox 98.3 F 80 16 139/68 H 92 05/19/19 14:00 05/19/19 14:00 05/19/19 14:00 05/19/19 14:00 05/19/19 14:00 Oxygen Flow Rate (L/min) 2 Oxygen Delivery Method Room Air Weight: 244 lb 7.882 oz Body Mass Index (BMI) 32.2 Finger Stick Blood Glucose 137 Intake and Output for Last 24 Hours 05/17/19 05/18/19 05/19/19 23:59 23:59 23:59 Intake Total 5270.75 / 5270.75 4651.25 / 4651.25 1106.5 / 1106.5 Output Total 7500 / 7500 4700 / 4700 2245 / 2245 Balance -2229.25 / -2229.25 -48.75 / -48.75 -1138.5 / -1138.5 Microbiology Past 72 Hours 05/18/19 15:50 Gram Stain - Final Tissue - Left Foot Wound Culture - Preliminary No growth-Final to follow 05/18/19 15:50 Gram Stain - Final Bone - Left Foot Wound Culture - Preliminary No growth-Final to follow Laboratory Tests Past 24 Hrs 05/13/19 05/19/19 05/19/19 16:50 06:05 06:05 WBC 11.7 H RBC 3.89 L Hgb 12.2 L Hct 37.5 L MCV 96.4 H MCH 31.4 MCHC 32.5 RDW Std Deviation 45.4 H RDW Coeff of Fatuma 12.8 Plt Count 297 MPV 9.5 Immature Gran % (Auto) 1.000 H Neut % (Auto) 79.7 H Lymph % (Auto) 11.5 L [place] % (Auto) 7.1 Eos % (Auto) 0.2 Baso % (Auto) 0.5 Absolute Neuts (auto) 9.3 H Absolute Lymphs (auto) 1.34 Nucleated RBC % 0 Sodium 143 Potassium 4.6 Chloride 112 H Carbon Dioxide 25.0 Anion Gap 6 BUN 40 H Creatinine 2.34 H Estim Creat Clear Calc 36.52 Est GFR (MDRD) Af Amer 36 L Est GFR (MDRD) Non-Af 30 L BUN/Creatinine Ratio 17.1 Glucose 206 H Calcium 7.9 L Urine Myoglobin 18 H POC Glucose 05/19/19 05/19/19 05/18/19 11:27 08:06 23:21 POC Glucose 256 H 213 H 199 H 05/18/19 05/18/19 18:15 15:26 POC Glucose 137 H 125 H Medical Necessity - Tobacco Use Smoking Status: Current every day smoker Tobacco Use: Cigarettes Assessment/Plan All Active Problems Foot abscess, left (Acute) Foot abscess, left (Acute) Diabetic infection of left foot (Acute) DEAN (acute kidney injury) (Acute) Severe sepsis (Acute) Elevated troponin (Acute) Dehydration (Acute) Diabetic hyperosmolar non-ketotic state (Acute) 1. Acute severe sepsis, bacteremia, 2/2 LLE diabetic foot wound - continue Ampicillin. Blood cx now negative. echo without valvular involvement. Transmetatarsal amputation POD#1. 2. DMt2 with poor control. A1C 13.3. Glucose continues to improve. Will defer adjustments today given that he is going to the OR. 3. DEAN - 2/2 sepsis and urinary retention. Continues to improve. Neph following. 500cc retained, singleton placed. Flomax started. Renal US is normal. Output is good. Trend. Gently IV fluids given. Will need voiding trial prior to DC. 4. NSTEMI - initial indeterminate trop trended down, no CP, tele changes. Echo with some wall motion abnormalities, EF 55%, St1 diastolic dysfxn. 5. Acute rhabdomyolysis - resolved. 6. Hyponatremia resolved. 7. HTN stable 8. Nicotine abuse - will complicate #1. Patch provided. DVT ppx: lovenox DC planning: needs SNF placement for proper wound care, proper assistance with nonweightbearing, PTOT, and likely IV abx. This patient was seen by Filiberto Camejo PA-C under the supervision of Doctor Garcia.
--- NOTE | 2019-05-19 14:42 | PCM.PN.ID ---
Patient Problems: Active and Suspected Problems Diabetic infection of left foot (Acute) DEAN (acute kidney injury) (Acute) Severe sepsis (Acute) Elevated troponin (Acute) Dehydration (Acute) Diabetic hyperosmolar non-ketotic state (Acute) Peripheral vascular disease (Suspected) Subjective: Feeling ok, pain increased in foot after having surgery. No fever. - Physical Exam General: Alert, Cooperative, No apparent distress Lungs: Clear to auscultation, Normal air movement Cardiovascular: Regular rate, Regular Rhythm Abdomen: Soft, Non Tender, Non-Distended Skin: Incision - foot wrapped Vital Signs Temp Pulse Resp BP Pulse Ox 98.3 F 80 16 139/68 H 92 05/19/19 14:00 05/19/19 14:00 05/19/19 14:00 05/19/19 14:00 05/19/19 14:00 Oxygen Flow Rate (L/min) 2 Oxygen Delivery Method Room Air Weight: 110.9 kg Body Mass Index (BMI) 32.2 Finger Stick Blood Glucose 137 Intake and Output for Last 24 Hours 05/17/19 05/18/19 05/19/19 23:59 23:59 23:59 Intake Total 5270.75 / 5270.75 4651.25 / 4651.25 1106.5 / 1106.5 Output Total 7500 / 7500 4700 / 4700 2245 / 2245 Balance -2229.25 / -2229.25 -48.75 / -48.75 -1138.5 / -1138.5 Microbiology Past 72 Hours 05/18/19 15:50 Gram Stain - Final Tissue - Left Foot Wound Culture - Preliminary No growth-Final to follow 05/18/19 15:50 Gram Stain - Final Bone - Left Foot Wound Culture - Preliminary No growth-Final to follow Laboratory Tests Past 24 Hrs 05/13/19 05/19/19 05/19/19 16:50 06:05 06:05 WBC 11.7 H RBC 3.89 L Hgb 12.2 L Hct 37.5 L MCV 96.4 H MCH 31.4 MCHC 32.5 RDW Std Deviation 45.4 H RDW Coeff of Fatuma 12.8 Plt Count 297 MPV 9.5 Immature Gran % (Auto) 1.000 H Neut % (Auto) 79.7 H Lymph % (Auto) 11.5 L [place] % (Auto) 7.1 Eos % (Auto) 0.2 Baso % (Auto) 0.5 Absolute Neuts (auto) 9.3 H Absolute Lymphs (auto) 1.34 Nucleated RBC % 0 Sodium 143 Potassium 4.6 Chloride 112 H Carbon Dioxide 25.0 Anion Gap 6 BUN 40 H Creatinine 2.34 H Estim Creat Clear Calc 36.52 Est GFR (MDRD) Af Amer 36 L Est GFR (MDRD) Non-Af 30 L BUN/Creatinine Ratio 17.1 Glucose 206 H Calcium 7.9 L Urine Myoglobin 18 H POC Glucose 05/19/19 05/19/19 05/18/19 11:27 08:06 23:21 POC Glucose 256 H 213 H 199 H 05/18/19 05/18/19 18:15 15:26 POC Glucose 137 H 125 H Medical Necessity - Tobacco Use Smoking Status: Current every day smoker Tobacco Use: Cigarettes Route of nutrition/ use of supplements: [] Nutritional Intake: [] IV Site: [] Dyer Catheter: [] - Assessment/Plan Antibiotics: [] Assessment/Plan: [] Active and Suspected Problems Diabetic infection of left foot (Acute) 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 Staph aureus pcr was neg from foot. Bcx x2 (+) alpha strep. Surg cxs with enterococcus, strep, klebs, GPC, acinetobacter, GPR. TTE with no veg seen. No fever. Now s/p I&D 05/[address] Claudio. DEAN slowly improving. 05/13 narrowed abx to unasyn. OR 05/18 for TMA. Surg cx and path pending. It does sound from the op note that there was some pus present in the residual stump; this makes it likely that he will need picc and iv abx at discharge. Will follow
--- NOTE | 2019-05-19 14:52 | NURSING ---
Patient with court hearing in AM. Requests excuse to be sent to [facility] regarding unable to appear d/t hospitalization. Excuse faxed.
--- NOTE | 2019-05-19 15:01 | PN.RENAL_ITS ---
Patient Problems: Active and Suspected Problems Diabetic infection of left foot (Acute) DEAN (acute kidney injury) (Acute) Severe sepsis (Acute) Elevated troponin (Acute) Dehydration (Acute) Diabetic hyperosmolar non-ketotic state (Acute) Peripheral vascular disease (Suspected) Subjective: complains of pain at incision site left foot. Pt sister Marybeth at bedside. Waiting on ECF placement. Renal fxn continues to improve. - Physical Exam General: Alert, Oriented x3, Cooperative, No apparent distress Lungs: Clear to auscultation Cardiovascular: Regular rate Extremities: No edema, - - left foot covered Psych/Mental Status: Normal Affect, Appropriate, Alert and oriented to time, place, person, mood and affect Vital Signs Temp Pulse Resp BP Pulse Ox 98.3 F 80 16 139/68 H 92 05/19/19 14:00 05/19/19 14:00 05/19/19 14:00 05/19/19 14:00 05/19/19 14:00 Oxygen Flow Rate (L/min) 2 Oxygen Delivery Method Room Air Weight: 110.9 kg Body Mass Index (BMI) 32.2 Finger Stick Blood Glucose 137 Intake and Output for Last 24 Hours 05/17/19 05/18/19 05/19/19 23:59 23:59 23:59 Intake Total 5270.75 / 5270.75 4651.25 / 4651.25 1106.5 / 1106.5 Output Total 7500 / 7500 4700 / 4700 2245 / 2245 Balance -2229.25 / -2229.25 -48.75 / -48.75 -1138.5 / -1138.5 Microbiology Past 72 Hours 05/18/19 15:50 Gram Stain - Final Tissue - Left Foot Wound Culture - Preliminary No growth-Final to follow 05/18/19 15:50 Gram Stain - Final Bone - Left Foot Wound Culture - Preliminary No growth-Final to follow Laboratory Tests Past 24 Hrs 05/13/19 05/19/19 05/19/19 16:50 06:05 06:05 WBC 11.7 H RBC 3.89 L Hgb 12.2 L Hct 37.5 L MCV 96.4 H MCH 31.4 MCHC 32.5 RDW Std Deviation 45.4 H RDW Coeff of Fatuma 12.8 Plt Count 297 MPV 9.5 Immature Gran % (Auto) 1.000 H Neut % (Auto) 79.7 H Lymph % (Auto) 11.5 L [place] % (Auto) 7.1 Eos % (Auto) 0.2 Baso % (Auto) 0.5 Absolute Neuts (auto) 9.3 H Absolute Lymphs (auto) 1.34 Nucleated RBC % 0 Sodium 143 Potassium 4.6 Chloride 112 H Carbon Dioxide 25.0 Anion Gap 6 BUN 40 H Creatinine 2.34 H Estim Creat Clear Calc 36.52 Est GFR (MDRD) Af Amer 36 L Est GFR (MDRD) Non-Af 30 L BUN/Creatinine Ratio 17.1 Glucose 206 H Calcium 7.9 L Urine Myoglobin 18 H POC Glucose 05/19/19 05/19/19 05/18/19 11:27 08:06 23:21 POC Glucose 256 H 213 H 199 H 05/18/19 05/18/19 18:15 15:26 POC Glucose 137 H 125 H Medical Necessity - Tobacco Use Smoking Status: Current every day smoker Tobacco Use: Cigarettes Assessment/Plan All Active Problems Foot abscess, left (Acute) Foot abscess, left (Acute) Diabetic infection of left foot (Acute) DEAN (acute kidney injury) (Acute) Severe sepsis (Acute) Elevated troponin (Acute) Dehydration (Acute) Diabetic hyperosmolar non-ketotic state (Acute) 1. DEAN due to ATN from sepsis, hypotension, rhabdo. creatinine continues to improve down to 2.3. Post ATN diuresis 2. Diabetic foot ulcer s/p 1st/2nd toe amputation 3. Sepsis, afebrile, leukocytosis improving 4. HTN stable BP 5. DM2 poorly controlled due to medical noncompliance, infection
--- NOTE | 2019-05-19 15:31 | CASEMGMT ---
ROBBIN spoke with Emi from [employer]. She said patient's sister should be listed as the trustee. That way she has patient's permission to set up the account and manage deposits for him. ROBBIN helped them re-do paperwork. Patient's sister then went to [facility] [employer] across the street. She called ROBBIN and let her know she left all the papers with [facility] and it has to get approved. They told her it could be as soon as and as late as Friday. ROBBIN told her hopefully it is done or Friday so he can get qualified for April. ROBBIN thanked her for her assistance. Plan: Plan is for patient to go to [facility] for IV antibiotics, wound care, and PT/OT. However, patient does not have insurance. ROBBIN helped patient apply for Medicaid which he is over the income limit. In order to qualify him for Medicaid he has to open a Qualified Income Trust with a bank. Any money he is over the Medicaid amount goes into this account to help qualify him for Medicaid. Patient's sister took all necessary paperwork to [facility] [employer] across the street today. Now we are waiting on approval for the trust from the bank. Hopefully this will be approved or Fri. Kylah CHAMORRO
[2019-05-19] MEDS: Tamsulosin HCl 0.4 MG Capsule PO (16:07)
[2019-05-19 17:00] LABS: Bedside Glucose 223 mg/dL (70-110)
--- NOTE | 2019-05-19 17:51 | PN_ITS ---
Patient Problems: Active and Suspected Problems Diabetic infection of left foot (Acute) DEAN (acute kidney injury) (Acute) Severe sepsis (Acute) Elevated troponin (Acute) Dehydration (Acute) Diabetic hyperosmolar non-ketotic state (Acute) Peripheral vascular disease (Suspected) Subjective: This 64-year-old male with multiple comorbidities was seen bedside postoperative day #1 left transmetatarsal amputation with open gastrocnemius recession. His pain is moderate to the foot and back of the leg. He denies fever, chill, nausea, vomiting, loss of appetite, chest pain, shortness of breath. He is remain nonweightbearing today and elevates the surgical limb. - Physical Exam General: Alert, Oriented x3, Cooperative HEENT: Atraumatic Extremities: No cyanosis, Capillary Refill Less than 3 Seconds, No Calf Tenderness, Diminished Peripheral Pulses, Edema, Tenderness - To gastrocnemius recession and transmetatarsal amputation site palpation Skin: Incision - Well aligned and coapted to the transmetatarsal amputation stump site centrally and laterally with Prolene sutures intact. The open medial aspect is noted without purulence on expression or purulence or odor noted with removal of packing. There is no necrosis or duskiness. No proximal streaking. Incision to the posterior left leg also appears well aligned and coapted with sutures intact Musculoskeletal: Muscle Wasting, - - Improved ankle dorsiflexion with knee extended. Left lower extremity remains in a rectus position with the posterior mold splint in place Neurological: - - His sensation is intact to touch and his surgical site is sensitive Psych/Mental Status: Normal Affect, Appropriate Vital Signs Temp Pulse Resp BP Pulse Ox 98.3 F 83 16 139/68 H 92 05/19/19 14:00 05/19/19 15:00 05/19/19 14:00 05/19/19 14:00 05/19/19 14:00 Oxygen Flow Rate (L/min) 2 Oxygen Delivery Method Room Air Weight: 110.9 kg Body Mass Index (BMI) 32.2 Finger Stick Blood Glucose 137 Intake and Output for Last 24 Hours 05/17/19 05/18/19 05/19/19 23:59 23:59 23:59 Intake Total 5270.75 / 5270.75 4651.25 / 4651.25 1106.5 / 1106.5 Output Total 7500 / 7500 4700 / 4700 2245 / 2245 Balance -2229.25 / -2229.25 -48.75 / -48.75 -1138.5 / -1138.5 Microbiology Past 72 Hours 05/18/19 15:50 Gram Stain - Final Tissue - Left Foot Wound Culture - Preliminary No growth-Final to follow 05/18/19 15:50 Gram Stain - Final Bone - Left Foot Wound Culture - Preliminary No growth-Final to follow Laboratory Tests Past 24 Hrs 05/13/19 05/19/19 05/19/19 16:50 06:05 06:05 WBC 11.7 H RBC 3.89 L Hgb 12.2 L Hct 37.5 L MCV 96.4 H MCH 31.4 MCHC 32.5 RDW Std Deviation 45.4 H RDW Coeff of Fatuma 12.8 Plt Count 297 MPV 9.5 Immature Gran % (Auto) 1.000 H Neut % (Auto) 79.7 H Lymph % (Auto) 11.5 L [place] % (Auto) 7.1 Eos % (Auto) 0.2 Baso % (Auto) 0.5 Absolute Neuts (auto) 9.3 H Absolute Lymphs (auto) 1.34 Nucleated RBC % 0 Sodium 143 Potassium 4.6 Chloride 112 H Carbon Dioxide 25.0 Anion Gap 6 BUN 40 H Creatinine 2.34 H Estim Creat Clear Calc 36.52 Est GFR (MDRD) Af Amer 36 L Est GFR (MDRD) Non-Af 30 L BUN/Creatinine Ratio 17.1 Glucose 206 H Calcium 7.9 L Urine Myoglobin 18 H POC Glucose 05/19/19 05/19/19 05/19/19 16:51 11:27 08:06 POC Glucose 223 H 256 H 213 H 05/18/19 05/18/19 23:21 18:15 POC Glucose 199 H 137 H Medical Necessity - Tobacco Use Smoking Status: Current every day smoker Tobacco Use: Cigarettes Assessment/Plan All Active Problems Foot abscess, left (Acute) Foot abscess, left (Acute) Diabetic infection of left foot (Acute) DEAN (acute kidney injury) (Acute) Severe sepsis (Acute) Elevated troponin (Acute) Dehydration (Acute) Diabetic hyperosmolar non-ketotic state (Acute) POD #1 left transmetatarsal with partial complex closure and open gastrocnemius recession secondary to continued abscess formation, osteomyelitis, and previous open amputation and sepsis Bacteremia Uncontrolled diabetes with neuropathy Lower extremity edema left thigh wound, stable Other comorbidities I reviewed and discussed his case. He is afebrile and his vitals are stable. WBC 11.7 noted. He continues on IV unasyn at this time to the management of infectious disease. Updated microbiology and pathology specimens were obtained and surgery yesterday and these results are pending including clearance fragments. Postoperative x-rays were reviewed with adequate resection at the transmetatarsal level with no acute injuries or foreign bodies noted. Clinically, the infection status is stabilizing to the foot now that he is s/p. The dressing was changed this evening and was gently irrigated with normal saline. Additional dressing saline with gauze was packed into the medial aspect and this will need to be monitored and re-irrigated over the next 1 to 3 days to ensure the purulence has resolved. This was not noted today. The dressing consisted of Adaptic to the gastrocnemius recession site, gauze, abdominal pads, Kerlix, and Angus wrap to both sites. Well-padded posterior mold was also applied. His left thigh wound is noted and appears stable. This would likely benefit from debridement and wound care. I recommend consult for this. It is above the tibial tuberosity and not currently in my scope to perform the debridement. I explained this to the patient. Medical management and preoperative optimization and DVT prophylaxis per primary team is appreciated. I will continue to follow him close while in house. It is noted he is amenable to go to rehabilitation or skilled facility which is recommended. Please do not hesitate to call if you have any questions. Irene Claudio DPM, [facility] [phone]
[2019-05-19] MEDS: Acetaminophen 325 MG Tablet 650 MG PO (18:52)
[2019-05-20] VITALS (10 sets, daily range): BP systolic 149–176; BP diastolic 63–78; PULSE 60–90; RESP 16–18; TEMP 36.4–37.2; O2SAT 92–95
[2019-05-20 00:55] LABS: Bedside Glucose 252 mg/dL (70-110)
[2019-05-20 06:07] LABS: Absolute Lymphocyte Count 1.88 X10^3/uL (0.83-4.51); Basophil# 0.11 X10^3/uL; Basophil% 1.1 % (0-1); Eosinophil# 0.29 X10^3/uL; Eosinophils% 2.9 % (0-5); Hematocrit 38.3 % (40-54); Hemoglobin 12.1 g/dL (13.0-16.5); Lymphocyte # 1.88 X10^3/ul (4.0); Lymphocyte % 18.6 % (19-41); Mean Corp Hgb Conc 31.6 g/dL (32-36); Mean Corpuscular Hgb 30.9 pg (27.0-32.0); Mean Platelet Vol. 9.9 fl (6.2-12.0); Monocyte# 0.79 X10^3/uL; Monocyte% 7.8 % (0-10); NRBC Flagged by Analyzer 0 % (0-5); Neutrophil # 6.99 X10^3/uL (2.7-7.7); Neutrophil % 68.9 % (47-70); Platelet Count 312 K/mm3 (150-450); RBC Distribution Width CV 12.9 % (11.6-14.6); Red Blood Count 3.91 M/mm3 (4.6-6.2); White Blood Count 10.1 K/mm3 (4.4-11.0)
[2019-05-20 06:30] LABS: Anion Gap 8 (5-15); BUN 42 mg/dL (7-18); BUN/Creat Ratio 17.5 RATIO (10-20); Calcium,Total 8.2 mg/dL (8.5-10.1); Chloride 111 mmol/L (98-107); EST Glomerular Filtration Rate 29 mL/min (>60); Est Glom Filt Rate - Afr Amer 35 mL/min (>60); Glucose 164 mg/dL (74-106); Potassium 3.9 mmol/L (3.5-5.1); Sodium Level 144 mmol/L (136-145)
[2019-05-20] MEDS: 0.9% Normal Saline 1,000 ML 75 ML IV ×2 (06:59→21:02)
[2019-05-20] MEDS: Insulin Lispro 100 UNIT/ML INSULN.PEN SC ×6 (08:10→17:03)
[2019-05-20] MEDS: Multivitamins,Therapeutic Tablet 1 TABLET PO (08:13)
[2019-05-20] MEDS: Famotidine 20 MG Tablet PO ×2 (08:13→21:50)
[2019-05-20] MEDS: Calcium (Elemental) 500 MG Tablet PO (08:13)
[2019-05-20] MEDS: Docusate Sodium 100 MG Capsule PO ×2 (08:13→21:38)
[2019-05-20] MEDS: Ascorbic Acid 500 MG Tablet PO ×2 (08:13→17:04)
--- NOTE | 2019-05-20 08:33 | PN.RENAL_ITS ---
Patient Problems: Active and Suspected Problems Diabetic infection of left foot (Acute) DEAN (acute kidney injury) (Acute) Severe sepsis (Acute) Elevated troponin (Acute) Dehydration (Acute) Diabetic hyperosmolar non-ketotic state (Acute) Peripheral vascular disease (Suspected) Subjective: up to comode. Still with high urine volumes. Continue with iv fluids. Less foot pain - Physical Exam General: Alert, Oriented x3, Cooperative, No apparent distress Cardiovascular: Regular rate Psych/Mental Status: Alert and oriented to time, place, person, mood and affect Vital Signs Temp Pulse Resp BP Pulse Ox 97.5 F L 69 18 149/78 H 93 05/20/19 02:55 05/20/19 02:59 05/20/19 02:55 05/20/19 02:55 05/20/19 03:00 Oxygen Flow Rate (L/min) 2 Oxygen Delivery Method Nasal Cannula Weight: 110.9 kg Body Mass Index (BMI) 32.2 Finger Stick Blood Glucose 137 Intake and Output for Last 24 Hours 05/18/19 05/19/19 05/20/19 23:59 23:59 23:59 Intake Total 4651.25 / 4651.25 2809.75 / 2809.75 722.5 / 722.5 Output Total 4700 / 4700 5095 / 5095 2200 / 2200 Balance -48.75 / -48.75 -2285.25 / -2285.25 -1477.5 / -1477.5 Microbiology Past 72 Hours 05/18/19 15:50 Gram Stain - Final Bone - Left Foot Wound Culture - Preliminary No growth-Final to follow Anaerobic Culture - Preliminary No growth in 48 hours. 05/18/19 15:50 Gram Stain - Final Tissue - Left Foot Wound Culture - Preliminary No growth-Final to follow Anaerobic Culture - Preliminary No growth in 48 hours. Laboratory Tests Past 24 Hrs 05/13/19 05/20/19 05/20/19 16:50 05:36 05:36 WBC 10.1 RBC 3.91 L Hgb 12.1 L Hct 38.3 L MCV 98.0 H MCH 30.9 MCHC 31.6 L RDW Std Deviation 46.0 H RDW Coeff of Fatuma 12.9 Plt Count 312 MPV 9.9 Immature Gran % (Auto) 0.700 Neut % (Auto) 68.9 Lymph % (Auto) 18.6 L [place] % (Auto) 7.8 Eos % (Auto) 2.9 Baso % (Auto) 1.1 H Absolute Neuts (auto) 7.0 Absolute Lymphs (auto) 1.88 Nucleated RBC % 0 Sodium 144 Potassium 3.9 Chloride 111 H Carbon Dioxide 25.0 Anion Gap 8 BUN 42 H Creatinine 2.40 H Estim Creat Clear Calc 35.60 Est GFR (MDRD) Af Amer 35 L Est GFR (MDRD) Non-Af 29 L BUN/Creatinine Ratio 17.5 Glucose 164 H Calcium 8.2 L Urine Myoglobin 18 H POC Glucose 05/19/19 05/19/19 05/19/19 21:28 16:51 11:27 POC Glucose 252 H 223 H 256 H Medical Necessity - Tobacco Use Smoking Status: Current every day smoker Tobacco Use: Cigarettes Assessment/Plan All Active Problems Foot abscess, left (Acute) Foot abscess, left (Acute) Diabetic infection of left foot (Acute) DEAN (acute kidney injury) (Acute) Severe sepsis (Acute) Elevated troponin (Acute) Dehydration (Acute) Diabetic hyperosmolar non-ketotic state (Acute) 1. DEAN due to ATN from sepsis, hypotension, rhabdo. creatinine essentially unchanged at 2.4. Continue with iv fluids for Post ATN diuresis 2. Diabetic foot ulcer s/p 1st/2nd toe amputation 3. Sepsis, afebrile, leukocytosis improving 4. HTN stable BP 5. DM2 poorly controlled due to medical noncompliance, infection
[2019-05-20 08:40] LABS: Bedside Glucose 153 mg/dL (70-110)
[2019-05-20] MEDS: Morphine 4 MG/ML Syringe IV ×3 (08:46→23:15)
--- NOTE | 2019-05-20 09:27 | CASEMGMT ---
ROBBIN faxed updates to [facility]. Kylah FRANZ GLASSBLOWER
[2019-05-20] MEDS: oxyCODONE HCl Cr 10 MG Tablet PO ×2 (09:58→21:38)
[2019-05-20] MEDS: Enoxaparin 40 MG/0.4 ML Syringe SC (09:59)
--- NOTE | 2019-05-20 10:29 | PN.ID_ITS ---
Patient Problems: Active and Suspected Problems Diabetic infection of left foot (Acute) DEAN (acute kidney injury) (Acute) Severe sepsis (Acute) Elevated troponin (Acute) Dehydration (Acute) Diabetic hyperosmolar non-ketotic state (Acute) Peripheral vascular disease (Suspected) Subjective: Feeling ok, pain improved, no fever - Physical Exam General: Alert, Cooperative, No apparent distress Lungs: Clear to auscultation, Normal air movement Cardiovascular: Regular rate, Regular Rhythm Abdomen: Soft, Non Tender, Non-Distended Skin: Ulcer/ Wound - foot wrapped Vital Signs Temp Pulse Resp BP Pulse Ox 97.7 F L 80 18 158/66 H 92 05/20/19 08:50 05/20/19 08:50 05/20/19 08:50 05/20/19 08:50 05/20/19 08:50 Oxygen Flow Rate (L/min) 2 Oxygen Delivery Method Room Air Weight: 110.9 kg Body Mass Index (BMI) 32.2 Finger Stick Blood Glucose 137 Intake and Output for Last 24 Hours 05/18/19 05/19/19 05/20/19 23:59 23:59 23:59 Intake Total 4651.25 / 4651.25 2809.75 / 2809.75 955.0 / 955.0 Output Total 4700 / 4700 5095 / 5095 2200 / 2200 Balance -48.75 / -48.75 -2285.25 / -2285.25 -1245.0 / -1245.0 Microbiology Past 72 Hours 05/18/19 15:50 Gram Stain - Final Bone - Left Foot Wound Culture - Preliminary No growth-Final to follow Anaerobic Culture - Preliminary No growth in 48 hours. 05/18/19 15:50 Gram Stain - Final Tissue - Left Foot Wound Culture - Preliminary No growth-Final to follow Anaerobic Culture - Preliminary No growth in 48 hours. Laboratory Tests Past 24 Hrs 05/20/19 05/20/19 05:36 05:36 WBC 10.1 RBC 3.91 L Hgb 12.1 L Hct 38.3 L MCV 98.0 H MCH 30.9 MCHC 31.6 L RDW Std Deviation 46.0 H RDW Coeff of Fatuma 12.9 Plt Count 312 MPV 9.9 Immature Gran % (Auto) 0.700 Neut % (Auto) 68.9 Lymph % (Auto) 18.6 L [place] % (Auto) 7.8 Eos % (Auto) 2.9 Baso % (Auto) 1.1 H Absolute Neuts (auto) 7.0 Absolute Lymphs (auto) 1.88 Nucleated RBC % 0 Sodium 144 Potassium 3.9 Chloride 111 H Carbon Dioxide 25.0 Anion Gap 8 BUN 42 H Creatinine 2.40 H Estim Creat Clear Calc 35.60 Est GFR (MDRD) Af Amer 35 L Est GFR (MDRD) Non-Af 29 L BUN/Creatinine Ratio 17.5 Glucose 164 H Calcium 8.2 L POC Glucose 05/20/19 05/19/19 05/19/19 08:07 21:28 16:51 POC Glucose 153 H 252 H 223 H 05/19/19 11:27 POC Glucose 256 H Medical Necessity - Tobacco Use Smoking Status: Current every day smoker Tobacco Use: Cigarettes Route of nutrition/ use of supplements: [] Nutritional Intake: [] IV Site: [] Dyer Catheter: [] - Assessment/Plan Antibiotics: [] Assessment/Plan: [] Active and Suspected Problems Diabetic infection of left foot (Acute) 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 Staph aureus pcr was neg from foot. Bcx x2 (+) alpha strep. Surg cxs with enterococcus, strep, klebs, GPC, acinetobacter, GPR. TTE with no veg seen. No fever. Now s/p I&D 05/[address] Claudio. DEAN slowly improving. 05/13 narrowed abx to unasyn. OR 05/18 for TMA. Surg cx and path pending. It does sound from the op note that there was some pus present in the residual stump; this makes it likely that he will need picc and iv abx at discharge. If no residual osteo, course of po abx could be an option. Will follow
--- NOTE | 2019-05-20 10:31 | PCM.PROGNOTE ---
<Monica Barillas - Last Filed: 05/20/19 11:10> Patient Problems: Active and Suspected Problems Diabetic infection of left foot (Acute) DEAN (acute kidney injury) (Acute) Severe sepsis (Acute) Elevated troponin (Acute) Dehydration (Acute) Diabetic hyperosmolar non-ketotic state (Acute) Peripheral vascular disease (Suspected) Subjective: Patient seen and examined. Wound RN cleansing left foot postop area, patient complains of 8/10 pain. He denies other current complaints. Denies fever, chills. - Physical Exam General: Alert, Oriented x3, Cooperative HEENT: Atraumatic, PERRLA, EOMI, Normocephalic Neck: Supple, No JVD, Negative Carotid Bruits Lungs: Clear to auscultation, Normal air movement Cardiovascular: Regular rate, Regular Rhythm, Normal S1, Normal S2, No murmurs Abdomen: Bowel Sounds Present, Soft, Non Tender, Non-Distended, Obese Extremities: No clubbing, No cyanosis, No edema Skin: - - Left foot transmetatarsal amputation postop site intact without evidence of infection. Bilateral knee abrasions. Musculoskeletal: No Tenderness to Palpation of Joints or Extremities Neurological: Cranial nerves II-XII grossly intact, Neuro grossly intact Psych/Mental Status: Normal Affect, Appropriate Vital Signs Temp Pulse Resp BP Pulse Ox 97.7 F L 80 18 158/66 H 92 05/20/19 08:50 05/20/19 08:50 05/20/19 08:50 05/20/19 08:50 05/20/19 08:50 Oxygen Flow Rate (L/min) 2 Oxygen Delivery Method Room Air Weight: 244 lb 7.882 oz Body Mass Index (BMI) 32.2 Finger Stick Blood Glucose 137 Intake and Output for Last 24 Hours 05/18/19 05/19/19 05/20/19 23:59 23:59 23:59 Intake Total 4651.25 / 4651.25 2809.75 / 2809.75 955.0 / 955.0 Output Total 4700 / 4700 5095 / 5095 2200 / 2200 Balance -48.75 / -48.75 -2285.25 / -2285.25 -1245.0 / -1245.0 Microbiology Past 72 Hours 05/18/19 15:50 Gram Stain - Final Bone - Left Foot Wound Culture - Preliminary No growth-Final to follow Anaerobic Culture - Preliminary No growth in 48 hours. 05/18/19 15:50 Gram Stain - Final Tissue - Left Foot Wound Culture - Preliminary No growth-Final to follow Anaerobic Culture - Preliminary No growth in 48 hours. Laboratory Tests Past 24 Hrs 05/20/19 05/20/19 05:36 05:36 WBC 10.1 RBC 3.91 L Hgb 12.1 L Hct 38.3 L MCV 98.0 H MCH 30.9 MCHC 31.6 L RDW Std Deviation 46.0 H RDW Coeff of Fatuma 12.9 Plt Count 312 MPV 9.9 Immature Gran % (Auto) 0.700 Neut % (Auto) 68.9 Lymph % (Auto) 18.6 L [place] % (Auto) 7.8 Eos % (Auto) 2.9 Baso % (Auto) 1.1 H Absolute Neuts (auto) 7.0 Absolute Lymphs (auto) 1.88 Nucleated RBC % 0 Sodium 144 Potassium 3.9 Chloride 111 H Carbon Dioxide 25.0 Anion Gap 8 BUN 42 H Creatinine 2.40 H Estim Creat Clear Calc 35.60 Est GFR (MDRD) Af Amer 35 L Est GFR (MDRD) Non-Af 29 L BUN/Creatinine Ratio 17.5 Glucose 164 H Calcium 8.2 L POC Glucose 05/20/19 05/19/19 05/19/19 08:07 21:28 16:51 POC Glucose 153 H 252 H 223 H 05/19/19 11:27 POC Glucose 256 H Medical Necessity - Tobacco Use Smoking Status: Current every day smoker Tobacco Use: Cigarettes Assessment/Plan All Active Problems Foot abscess, left (Acute) Foot abscess, left (Acute) Diabetic infection of left foot (Acute) DEAN (acute kidney injury) (Acute) Severe sepsis (Acute) Elevated troponin (Acute) Dehydration (Acute) Diabetic hyperosmolar non-ketotic state (Acute) 1. Acute severe sepsis secondary to left foot osteomyelitis/diabetic foot ulceration with associated Streptococcus bacteremia-podiatry, ID and wound RN following. Patient underwent left transmetatarsal amputation with partial complex closure 05/18/2019 secondary to left foot abscess with osteomyelitis. Wound cultures with multiple organisms including Klebsiella, lactobacillus, strep and enterococcus. TTE with no vegetation. Continue IV Unasyn. Plan for continued IV antibiotics at discharge. Continue dressing changes per orders. PT/OT. 2. Type 2 diabetes mellitus, poorly controlled-hemoglobin A1c 13.3%. Home oral regimen on hold. Accu-Cheks ACHS with sliding scale insulin, scheduled Humalog and Lantus. 3. Acute kidney injury, presumed secondary to sepsis as well as urinary retention-nephrology following. Dyer in place, continue Flomax regimen. Renal ultrasound normal. Voiding trial prior to discharge. Continue IV fluids. Trend BMP. 4. NSTEMI-enzymes did not trend. Denies chest pain. Echocardiogram demonstrated EF 55%, stage I diastolic dysfunction hypokinetic inferobasal and basal inferoseptal. Rest of all segments normal. 5. Acute rhabdomyolysis-resolved. 6. Hyponatremia-resolved. 7. Hypertension-stable, home lisinopril regimen on hold given DEAN. PRN hydralazine for systolic blood pressure greater than 160. 8. Tobacco dependence-encouraged smoking cessation. Nicotine replacement patch. 9. Mild macrocytic anemia-stable. 10. Bilateral knee abrasions, secondary to fall prior to admission-wound RN following, no evidence of infection. Left knee large abrasion debrided by wound RN 05/20/2019. Keep area clean and dry. DVT prophylaxis-Lovenox subcu Discharge planning: SNF pending Medicaid, will need discharge on IV antibiotics. This patient was seen by NAGA Mercado under the supervision of Dr. Aguilar. <Rosales Aguilar - Last Filed: 05/20/19 13:15> - Physical Exam Vital Signs Temp Pulse Resp BP Pulse Ox 97.7 F L 80 18 158/66 H 94 05/20/19 08:50 05/20/19 08:50 05/20/19 08:50 05/20/19 08:50 05/20/19 11:02 Oxygen Flow Rate (L/min) 2 Oxygen Delivery Method Room Air Weight: 110.9 kg Body Mass Index (BMI) 32.2 Finger Stick Blood Glucose 137 Intake and Output for Last 24 Hours 05/18/19 05/19/19 05/20/19 23:59 23:59 23:59 Intake Total 4651.25 / 4651.25 2809.75 / 2809.75 1067.0 / 1067.0 Output Total 4700 / 4700 5095 / 5095 4400 / 4400 Balance -48.75 / -48.75 -2285.25 / -2285.25 -3333.0 / -3333.0 Microbiology Past 72 Hours 05/18/19 15:50 Gram Stain - Final Bone - Left Foot Wound Culture - Preliminary No growth-Final to follow Anaerobic Culture - Preliminary No growth in 48 hours. 05/18/19 15:50 Gram Stain - Final Tissue - Left Foot Wound Culture - Preliminary No growth-Final to follow Anaerobic Culture - Preliminary No growth in 48 hours. Laboratory Tests Past 24 Hrs 05/20/19 05/20/19 05:36 05:36 WBC 10.1 RBC 3.91 L Hgb 12.1 L Hct 38.3 L MCV 98.0 H MCH 30.9 MCHC 31.6 L RDW Std Deviation 46.0 H RDW Coeff of Fatuma 12.9 Plt Count 312 MPV 9.9 Immature Gran % (Auto) 0.700 Neut % (Auto) 68.9 Lymph % (Auto) 18.6 L [place] % (Auto) 7.8 Eos % (Auto) 2.9 Baso % (Auto) 1.1 H Absolute Neuts (auto) 7.0 Absolute Lymphs (auto) 1.88 Nucleated RBC % 0 Sodium 144 Potassium 3.9 Chloride 111 H Carbon Dioxide 25.0 Anion Gap 8 BUN 42 H Creatinine 2.40 H Estim Creat Clear Calc 35.60 Est GFR (MDRD) Af Amer 35 L Est GFR (MDRD) Non-Af 29 L BUN/Creatinine Ratio 17.5 Glucose 164 H Calcium 8.2 L POC Glucose 05/20/19 05/20/19 05/19/19 12:02 08:07 21:28 POC Glucose 225 H 153 H 252 H 05/19/19 16:51 POC Glucose 223 H Assessment/Plan his patient was seen in conjunction with NAGA Mercado . I have independently interviewed and examined the patient and reviewed pertinent historical, laboratory, and other data. Please refer to NAGA Mercado note for details of this patient's presentation, findings, and recommendations. I have reviewed NAGA Mercado note and concur with documented findings. In brief, patient is 64-year-old gentleman with history of uncontrolled diabetes mellitus type 2 admitted with severe sepsis secondary to left foot osteomyelitis and diabetic wound infection with wound culture has been positive for Klebsiella Lactobacillus Streptococcus and enterococcus in addition to streptococcal bacteremia. Patient has had a protracted stay underwent left transmetatarsal amputation with partial complex wound closure on 05/18/2019 Physical Examination: GENERAL: cooperative HEENT: Atraumatic; moist oral mucosa EYES; Anicteric, Normal Conjunctiva NECK; supple, normal thyroid, RESPIRATORY: Diminished to auscultation CARDIOVASCULAR: Regular S1 S2, GI: soft, non-tender, normoactive bowel sounds, : No Renal angle tenderness; EXTREMITIES: Left foot in surgical dressing NEURO: Awake; no lateralizing signs. PSYCH; Normal affect Assessment: 1. Severe sepsis secondary to left foot osteomyelitis as well as polymicrobial diabetic foot infection 2. Streptococcal bacteremia with negative [place] 3. Diabetes mellitus type 2 uncontrolled 4. Acute kidney injury suspected to be secondary to combination of ATN as well as obstructive uropathy 5. Acute non-STEMI attributed to demand ischemia from patient above infection 6. Acute rhabdomyolysis resolved 7. Essential hypertension 8. Tobacco dependence. 9. Anemia secondary to anemia of chronic disorder monitoring H&H Recommendations: 1. I have discussed the results of my overview and impressions with the patient 2. Options for management were reviewed Code Visit Inpatient E&M: 46677 Subs Hosp L2
--- NOTE | 2019-05-20 11:27 | NURSING ---
wound photo: left foot
--- NOTE | 2019-05-20 11:28 | NURSING ---
wound photo: left foot
[2019-05-20 12:11] LABS: Bedside Glucose 225 mg/dL (70-110)
[2019-05-20] MEDS: oxyCODONE 5 MG Tablet 10 MG PO (14:54)
[2019-05-20] MEDS: Tamsulosin HCl 0.4 MG Capsule PO (17:04)
[2019-05-20 17:11] LABS: Bedside Glucose 207 mg/dL (70-110)
[2019-05-20 22:21] LABS: Bedside Glucose 163 mg/dL (70-110)
[2019-05-21 03:00] VITALS: BP 163/79; PULSE 106; PULSE 70; RESP 18; TEMP 37.2; O2SAT 94
[2019-05-21] MEDS: Morphine 4 MG/ML Syringe IV ×2 (05:24→11:22)
[2019-05-21 06:02] LABS: Hematocrit 35.9 % (40-54); Hemoglobin 11.3 g/dL (13.0-16.5); Mean Corp Hgb Conc 31.5 g/dL (32-36); Mean Corpuscular Hgb 30.4 pg (27.0-32.0); Mean Corpuscular Volume 96.5 fL (80-94); Mean Platelet Vol. 9.6 fl (6.2-12.0); Platelet Count 280 K/mm3 (150-450); RBC Distribution Width CV 12.8 % (11.6-14.6); RBC Distribution Width SD 45.2 fl (35.1-43.9); Red Blood Count 3.72 M/mm3 (4.6-6.2); White Blood Count 9.6 K/mm3 (4.4-11.0)
[2019-05-21 06:26] LABS: Anion Gap 6 (5-15); BUN 42 mg/dL (7-18); BUN/Creat Ratio 20.2 RATIO (10-20); Calcium,Total 8.4 mg/dL (8.5-10.1); Chloride 112 mmol/L (98-107); Creatinine, Serum 2.08 mg/dL (0.70-1.30); EST Glomerular Filtration Rate 34 mL/min (>60); Est Glom Filt Rate - Afr Amer 42 mL/min (>60); Estimated Creatinine Clearance 41.08 ml/min; Glucose 130 mg/dL (74-106); Potassium 3.9 mmol/L (3.5-5.1); Sodium Level 145 mmol/L (136-145)
[2019-05-21 06:46] VITALS: PULSE 64
[2019-05-21 07:36] VITALS: O2SAT 92
[2019-05-21] MEDS: Calcium (Elemental) 500 MG Tablet PO (08:09)
[2019-05-21] MEDS: Ascorbic Acid 500 MG Tablet PO (08:09)
[2019-05-21] MEDS: Multivitamins,Therapeutic Tablet 1 TABLET PO (08:09)
[2019-05-21] MEDS: Docusate Sodium 100 MG Capsule PO (08:10)
[2019-05-21] MEDS: Famotidine 20 MG Tablet PO (08:10)
[2019-05-21] MEDS: oxyCODONE HCl Cr 10 MG Tablet PO (08:10)
[2019-05-21] MEDS: Enoxaparin 40 MG/0.4 ML Syringe SC (08:10)
[2019-05-21] MEDS: Insulin Lispro 100 UNIT/ML INSULN.PEN SC ×3 (08:17→12:12)
[2019-05-21 09:05] VITALS: BP 153/69; PULSE 83; RESP 16; TEMP 36.7; O2SAT 92
[2019-05-21 09:16] LABS: Bedside Glucose 131 mg/dL (70-110)
--- NOTE | 2019-05-21 11:23 | PCM.PN.REN ---
Patient Problems: Active and Suspected Problems Diabetic infection of left foot (Acute) DEAN (acute kidney injury) (Acute) Severe sepsis (Acute) Elevated troponin (Acute) Dehydration (Acute) Diabetic hyperosmolar non-ketotic state (Acute) Peripheral vascular disease (Suspected) Subjective: singleton removed, urine output good. Creatinine improving. Still with left leg pain. - Physical Exam General: Alert, Oriented x3, Cooperative Lungs: Clear to auscultation Cardiovascular: Regular rate Abdomen: Bowel Sounds Present, Soft, Non Tender, Non-Distended, Obese Extremities: Edema, - - left foot wrapped Musculoskeletal: No Muscle Wasting Psych/Mental Status: Alert and oriented to time, place, person, mood and affect Vital Signs Temp Pulse Resp BP Pulse Ox 98.9 F 64 18 163/79 H 92 05/21/19 03:00 05/21/19 06:46 05/21/19 03:00 05/21/19 03:00 05/21/19 07:36 Oxygen Flow Rate (L/min) 2 Oxygen Delivery Method Room Air Weight: 110.9 kg Body Mass Index (BMI) 32.2 Finger Stick Blood Glucose 137 Intake and Output for Last 24 Hours 05/19/19 05/20/19 05/21/19 23:59 23:59 23:59 Intake Total 2809.75 / 2809.75 2385.25 / 2385.25 985.75 / 985.75 Output Total 5095 / 5095 7175 / 7175 1500 / 1500 Balance -2285.25 / -2285.25 -4789.75 / -4789.75 -514.25 / -514.25 Microbiology Past 72 Hours 05/18/19 15:50 Gram Stain - Final Bone - Left Foot Wound Culture - Preliminary No growth-Final to follow Anaerobic Culture - Preliminary No growth in 48 hours. 05/18/19 15:50 Gram Stain - Final Tissue - Left Foot Wound Culture - Preliminary No growth-Final to follow Anaerobic Culture - Preliminary No growth in 48 hours. Laboratory Tests Past 24 Hrs 05/21/19 05/21/19 05:45 05:45 WBC 9.6 RBC 3.72 L Hgb 11.3 L Hct 35.9 L MCV 96.5 H MCH 30.4 MCHC 31.5 L RDW Std Deviation 45.2 H RDW Coeff of Fatuma 12.8 Plt Count 280 MPV 9.6 Sodium 145 Potassium 3.9 Chloride 112 H Carbon Dioxide 27.0 Anion Gap 6 BUN 42 H Creatinine 2.08 H Estim Creat Clear Calc 41.08 Est GFR (MDRD) Af Amer 42 L Est GFR (MDRD) Non-Af 34 L BUN/Creatinine Ratio 20.2 H Glucose 130 H Calcium 8.4 L POC Glucose 05/21/19 05/20/19 05/20/19 08:04 21:38 17:01 POC Glucose 131 H 163 H 207 H 05/20/19 12:02 POC Glucose 225 H Medical Necessity - Tobacco Use Smoking Status: Current every day smoker Tobacco Use: Cigarettes Assessment/Plan All Active Problems Foot abscess, left (Acute) Foot abscess, left (Acute) Diabetic infection of left foot (Acute) DEAN (acute kidney injury) (Acute) Severe sepsis (Acute) Elevated troponin (Acute) Dehydration (Acute) Diabetic hyperosmolar non-ketotic state (Acute) 1. DEAN due to ATN from sepsis, hypotension, rhabdo. creatinine improved to 2.0 today. Ok to dc to ECF. follow up in office in 2 wks with labs in one week. 2. Diabetic foot ulcer s/p 1st/2nd toe amputation 3. Sepsis, afebrile, leukocytosis improving 4. HTN stable BP 5. DM2 poorly controlled due to medical noncompliance, infection
[2019-05-21 11:26] LABS: Bedside Glucose 196 mg/dL (70-110)
--- NOTE | 2019-05-21 11:44 | PCM.EXTCARCO ---
- Diet 05/20/19 11:28 Diet: Carbohydrate Controlled Dietary Modifications:: Low Potassium Restriction Type of Dietary Supplement:: Glucerna [place] Is pt able to select menu?: Yes Diet Comments: 2G potassium restriction - Routine Orders/Code Status Enema Type: Fleetz Enema Frequency: Daily PRN Suppository Type: Dulcolax 10mg Suppository Frequency: Daily PRN O2 Liters per Minute: 2 O2 Frequency: PRN Keep PO Greater than or Equal to (%): 90 Routine Lab Work: CBC, BMP, - - Q Week Code Status: Full Code - Wound(s) left knee Wound Type: Abrasion right knee Wound Type: cluster of abrasions left dorsal foot Wound Type: Neuropathic/Diabetic Foot Ulcer Dressing Change: betadine with dry dressing left plantar foot Wound Type: Surgical Incision Dressing Change: Dry Sterile Dressing right lateral plantar foot Wound Type: Neuropathic/Diabetic Foot Ulcer left foot Wound Type: Neuropathic/Diabetic Foot Ulcer Dressing Change: gently packed medial incision with betadine gauze Bilateral Knees/Elbows Wound Type: Abrasion - Suggestions for Active Care Change Position every (hours): 2 Times a day to sit in chair: 3 - Therapies Weight Bearing: Non weight bearing - LLE Extremity Affected:: Left Lower Physical Therapy: Eval and Treat Occupational Therapy: Eval and Treat - Problem/Diagnosis (1) DEAN (acute kidney injury) Status: Acute Current Visit: Yes (2) Elevated troponin Status: Acute Current Visit: Yes (3) Severe sepsis Status: Acute Current Visit: Yes (4) Chronic ulcer of left foot with necrosis of bone Status: Chronic Current Visit: Yes (5) Hypertension Status: Chronic Current Visit: No (6) Morbid obesity due to excess calories Status: Chronic Current Visit: No (7) Type 2 diabetes mellitus with diabetic polyneuropathy Status: Chronic Current Visit: No (8) Obstructive sleep apnea Status: Chronic Current Visit: No - Allergies/Procedures Done in Hospital Allergies/Adverse Reactions: Allergies No Known Allergies Allergy (Verified 06/23/17 15:08) Procedures: 2-D Echocardiogram, - - left transmetatarsal amputation with partial complex closure 05/18/2019 secondary to left foot abscess with osteomyelitis - Type of Care/Length of Stay Estimated LOS: Convalescent Care Less Than 30 days Type of Care Needed: Skilled Rehab Potential: Fair Prognosis: Fair - Additional Orders/Day of Discharge Additional Orders: Left foot, flush wound with large amount of normal saline and applied Adaptic to base, 4 x 4 then ABDs over gauze, additional ABD pad over ankle. Kerlix and Angus wrap over top. H&P will serve as current which was dated: 05/10/19 Day of Discharge: 05/21/19 - Dietary and Speech Recommendations Dietitian Recommendations/Changes: Recommend carbohydrate controlled, 2g potassium, low sodium diet. Recommond continue Brett 1 packet BID to promote wound healing. Will continue Glucerna shake at meals to provide additional protein. - Follow Up Care Primary Care Physician: Care Physician,No Primary [Primary Care Provider] - Please follow up with your Primary Care Physician in: 1 Week Please Follow Up With: Irene Claudio DPM - Wound center When: 1 Week Please Follow Up With: Mary Marsh DO When: 1-2 Weeks
--- NOTE | 2019-05-21 12:07 | DS.PCM_ITS ---
<Monica Barillas - Last Filed: 05/21/19 12:22> Discharge Date and Diagnosis Date of Admission: 05/10/19 Date of Discharge: 05/21/19 - Primary Discharge Diagnosis Active and Suspected Problems 1. Acute severe sepsis secondary to left foot osteomyelitis/polymicrobial diabetic foot ulceration with associated Streptococcus bacteremia 2. Type 2 diabetes mellitus, poorly controlled 3. Acute kidney injury, presumed secondary to sepsis as well as urinary r etention 4. NSTEMI, demand ischemia as a result of #1 5. Acute rhabdomyolysis 6. Hyponatremia 7. Hypertension 8. Tobacco dependence 9. Mild macrocytic anemia 10. 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 No demonstrated acute cardiopulmonary process. Electronically Signed: Nanci Daniel, at 5:51 EDT Tel , Service support , Lower Extremity MRI 05/10/19 08:01 IMPRESSION: Mild Charcot changes of the forefoot and midfoot. Findings compatible with contiguous size and spread osteomyelitis of the head and proximal phalanx of the first metatarsal. Electronically Signed: Nabil Daniels MD at 10:54 EDT , Service support , Renal Ultrasound 05/13/19 15:10 IMPRESSION: Normal ultrasound of the kidneys. Electronically Signed: Melvin Boateng DO at 19:25 EDT Tel [phone], Service support , Foot X-Ray 05/18/19 18:02 IMPRESSION: Status post transmetatarsal amputation of the foot with postsurgical changes. Electronically Signed: Melvin Boateng DO at 18:37 EDT Tel [phone], Service support , Consultations 05/10/19 08:01 Consult: Onc/Wound/asp web developer Routine Comment: Dr. Claudio- Podiatry Dr. Pathak- ID Dr. Heller- General surgery Dr. Marsh- Nephrology Operations: - - Left transmetatarsal amputation with partial complex closure Procedures: 2-D Echocardiogram Summary of Care Provided: The patient is a 64 year old M admitted 05/10/2019 due to red foot with open wounds. 1. Acute severe sepsis secondary to left foot osteomyelitis/diabetic foot ulceration with associated Streptococcus bacteremia-podiatry, ID and wound RN consulted during admission. Patient underwent left transmetatarsal amputation with partial complex closure 05/18/2019 secondary to left foot abscess with osteomyelitis. Wound cultures with multiple organisms including Klebsiella, lactobacillus, strep and enterococcus. Left tissue foot pathology showing no growth in 48 hours. Repeat blood cultures show no growth. TTE with no vegetation. IV Unasyn during admission. Transition to oral Augmentin for 10 days at discharge per ID recommendations. Continue dressing changes per orders. PT/OT. Follow-up with wound center, Dr. Claudio in 1 week. 2. Type 2 diabetes mellitus, poorly controlled-hemoglobin A1c 13.3%. Home metformin and Trulicity regimen discontinued. Glucose well controlled on current insulin regimen. Continue home Lantus 44 units with breakfast and 32 units nightly. Humalog sliding scale insulin and 5 units 3 times daily. Follow-up with primary care provider in 1 week. 3. Acute kidney injury, presumed secondary to sepsis as well as urinary retention-nephrology following. Continue Flomax regimen, folate discontinued and voiding without difficulty. Renal ultrasound normal. Follow-up with Dr. Marsh in 1 to 2 weeks. Lisinopril discontinued at discharge. 4. NSTEMI, demand ischemia as result of #1-enzymes did not trend. Denies chest pain. Echocardiogram demonstrated EF 55%, stage I diastolic dysfunction hypokinetic inferobasal and basal inferoseptal. Rest of all segments normal. 5. Acute rhabdomyolysis-resolved. 6. Hyponatremia-resolved. 7. Hypertension-stable, home lisinopril regimen on hold given DEAN. Initiated on amlodipine 10 mg daily. 8. Tobacco dependence-encouraged smoking cessation. Nicotine replacement patch. 9. Mild macrocytic anemia-stable. 10. Bilateral knee abrasions, secondary to fall prior to admission-wound RN following, no evidence of infection. Left knee large abrasion debrided by wound RN 05/20/2019. Keep area clean and dry. General: Alert, Oriented x3, Cooperative HEENT: Atraumatic, PERRLA, EOMI, Normocephalic Neck: Supple, No JVD, Negative Carotid Bruits Lungs: Clear to auscultation, Normal air movement Cardiovascular: Regular rate, Regular Rhythm, Normal S1, Normal S2, No murmurs Abdomen: Bowel Sounds Present, Soft, Non Tender, Non-Distended, Obese Extremities: No clubbing, No cyanosis, No edema Skin: - - Left foot transmetatarsal amputation postop site intact without evidence of infection. Bilateral knee abrasions. Musculoskeletal: No Tenderness to Palpation of Joints or Extremities Neurological: Cranial nerves II-XII grossly intact, Neuro grossly intact Psych/Mental Status: Normal Affect, Appropriate Patient seen and examined prior to discharge. Physical assessment as noted above. Patient is stable for discharge with follow up recommendations as noted above. This patient was seen by NAGA Mercado under the supervision of Dr. Aguilar. - Physical Exam Vital Signs Temp Pulse Resp BP Pulse Ox 98.0 F 83 16 153/69 H 92 05/21/19 09:05 05/21/19 09:05 05/21/19 09:05 05/21/19 09:05 05/21/19 09:05 Oxygen Flow Rate (L/min) 2 Oxygen Delivery Method Room Air Weight: 244 lb 7.882 oz Body Mass Index (BMI) 32.2 Finger Stick Blood Glucose 137 Intake and Output for Last 24 Hours 05/19/19 05/20/19 05/21/19 23:59 23:59 23:59 Intake Total 2809.75 / 2809.75 2385.25 / 2385.25 985.75 / 985.75 Output Total 5095 / 5095 7175 / 7175 1500 / 1500 Balance -2285.25 / -2285.25 -4789.75 / -4789.75 -514.25 / -514.25 Microbiology Past 72 Hours 05/18/19 15:50 Gram Stain - Final Bone - Left Foot Wound Culture - Preliminary No growth-Final to follow Anaerobic Culture - Preliminary No growth in 48 hours. 05/18/19 15:50 Gram Stain - Final Tissue - Left Foot Wound Culture - Preliminary No growth-Final to follow Anaerobic Culture - Preliminary No growth in 48 hours. Laboratory Tests Past 24 Hrs 05/21/19 05/21/19 05:45 05:45 WBC 9.6 RBC 3.72 L Hgb 11.3 L Hct 35.9 L MCV 96.5 H MCH 30.4 MCHC 31.5 L RDW Std Deviation 45.2 H RDW Coeff of Fatuma 12.8 Plt Count 280 MPV 9.6 Sodium 145 Potassium 3.9 Chloride 112 H Carbon Dioxide 27.0 Anion Gap 6 BUN 42 H Creatinine 2.08 H Estim Creat Clear Calc 41.08 Est GFR (MDRD) Af Amer 42 L Est GFR (MDRD) Non-Af 34 L BUN/Creatinine Ratio 20.2 H Glucose 130 H Calcium 8.4 L POC Glucose 05/21/19 05/21/19 05/20/19 11:23 08:04 21:38 POC Glucose 196 H 131 H 163 H 05/20/19 05/20/19 17:01 12:02 POC Glucose 207 H 225 H Home Medications: Medications to take at Discharge Calcium Carbonate [Calcium] 500 mg PO DAILY 06/23/17 Gabapentin [Neurontin] 300 mg PO TIDCM 06/23/17 Multivitamin [Multiple Vitamins] 1 each PO DAILY 06/23/17 Amlodipine [Norvasc] 10 mg PO DAILY tab 05/21/19 Amoxicillin/Potassium Clav [Augmentin 875-125 Tablet] 1 ea PO BID #20 tab 05/21/19 Ascorbic Acid [Vitamin C] 500 mg PO BIDCM tab 05/21/19 Insulin Glargine [Lantus SoloStar Pen] 32 units SUBCUT QHS pen 05/21/19 Insulin Glargine [Lantus SoloStar Pen] 44 units SUBCUT BREAKFAST pen 05/21/19 Insulin Lispro [Humalog KwikPen] 5 unit SUBCUT TIDAC insuln.pen 05/21/19 Insulin Lispro [Humalog KwikPen] See Protocol SUBCUT TIDAC insuln.pen 05/21/19 Nicotine [Nicoderm Cq] 21 mg TRANSDERM. DAILY patch 05/21/19 Nutritional Supplement [Brett - ORANGE FLAVOR] 1 packet PO BIDCM packet 05/21/19 Oxycodone CR [Oxycontin] 10 mg PO BID 2 Days #4 tab 05/21/19 Oxycodone [Oxyir] 10 mg PO Q4H PRN PRN 2 Days #24 tab 05/21/19 Tamsulosin HCl [Flomax] 0.4 mg PO DAILY@1730 cap 05/21/19 Zinc Sulfate (50mg elemental) [Zinc Sulfate] 220 mg PO DAILYCM cap 05/21/19 Following Prescrptions Were Given to Patient: Amoxicillin/Potassium Clav [Augmentin 875-125 Tablet] 1 ea PO BID #20 tab Prescription Printed Oxycodone CR [Oxycontin] 10 mg PO BID 2 Days #4 tab Prescription Printed Oxycodone [Oxyir] 10 mg PO Q4H PRN PRN 2 Days #24 tab PRN Reason: Moderate Pain (4-6/10) Prescription Printed Primary Care Physician: Care Physician,No Primary [Primary Care Provider] - Please follow up with your Primary Care Physician in: 1 Week Please Follow Up With: Irene Claudio DPM - Wound center When: 1 Week Please Follow Up With: Mary Marsh DO When: 1-2 Weeks Disposition: [facility] facility Minutes spent on discharge:: 35 Patient Condition:: Stable Medical Necessity - Tobacco Use Smoking Status: Current every day smoker Tobacco Use: Cigarettes Meaningful Use Info Meaningful Use Diagnoses (Choose all that apply): None applicable <Rosales Aguilar - Last Filed: 05/21/19 12:57> Discharge Date and Diagnosis - Secondary Discharge Diagnosis Chronic Problems Type 2 diabetes mellitus (Chronic) Obstructive sleep apnea (Chronic) Uncontrolled diabetes mellitus (Chronic) Osteomyelitis of great toe of left foot (Chronic) Morbid obesity due to excess calories (Chronic) Tobacco dependence due to cigarettes (Chronic) Diabetic neuropathy (Chronic) Hypertension (Chronic) 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 I have independently interviewed and examined the patient and reviewed pertinent historical, laboratory, and other data. Please refer to NAGA Mercado note for details of this patient's presentation, findings, and recommendations. I have reviewed NAGA Mercado note and concur with documented findings. In brief, patient is 64-year-old gentleman with history of uncontrolled diabetes mellitus type 2 admitted with severe sepsis secondary to left foot osteomyelitis and diabetic wound infection with wound culture has been positive for Klebsiella Lactobacillus Streptococcus and enterococcus in addition to streptococcal bacteremia. Patient has had a protracted stay underwent left transmetatarsal amputation with partial complex wound closure on 05/18/2019 Hospital course: As documented above by Monica Barillas NP?C - Physical Exam Vital Signs Temp Pulse Resp BP Pulse Ox 98.0 F 83 16 153/69 H 92 05/21/19 09:05 05/21/19 09:05 05/21/19 09:05 05/21/19 09:05 05/21/19 09:05 Oxygen Flow Rate (L/min) 2 Oxygen Delivery Method Room Air Weight: 110.9 kg Body Mass Index (BMI) 32.2 Finger Stick Blood Glucose 137 Intake and Output for Last 24 Hours 05/19/19 05/20/19 05/21/19 23:59 23:59 23:59 Intake Total 2809.75 / 2809.75 2385.25 / 2385.25 985.75 / 985.75 Output Total 5095 / 5095 7175 / 7175 1500 / 1500 Balance -2285.25 / -2285.25 -4789.75 / -4789.75 -514.25 / -514.25 Microbiology Past 72 Hours 05/18/19 15:50 Gram Stain - Final Bone - Left Foot Wound Culture - Preliminary No growth-Final to follow Anaerobic Culture - Preliminary No growth in 48 hours. 05/18/19 15:50 Gram Stain - Final Tissue - Left Foot Wound Culture - Preliminary No growth-Final to follow Anaerobic Culture - Preliminary No growth in 48 hours. Laboratory Tests Past 24 Hrs 05/21/19 05/21/19 05:45 05:45 WBC 9.6 RBC 3.72 L Hgb 11.3 L Hct 35.9 L MCV 96.5 H MCH 30.4 MCHC 31.5 L RDW Std Deviation 45.2 H RDW Coeff of Fatuma 12.8 Plt Count 280 MPV 9.6 Sodium 145 Potassium 3.9 Chloride 112 H Carbon Dioxide 27.0 Anion Gap 6 BUN 42 H Creatinine 2.08 H Estim Creat Clear Calc 41.08 Est GFR (MDRD) Af Amer 42 L Est GFR (MDRD) Non-Af 34 L BUN/Creatinine Ratio 20.2 H Glucose 130 H Calcium 8.4 L POC Glucose 05/21/19 05/21/19 05/20/19 11:23 08:04 21:38 POC Glucose 196 H 131 H 163 H 05/20/19 17:01 POC Glucose 207 H Code Visit Inpatient E&M: 13640 Disch Hosp
[2019-05-21] MEDS: amLODIPine 10 MG Tablet PO (12:11)
--- NOTE | 2019-05-21 12:29 | PCM.PN.ID ---
Subjective: Throbbing pain in foot, no fever, no n/v/d. - Physical Exam General: Alert, Cooperative, No apparent distress Cardiovascular: Regular rate, Regular Rhythm Abdomen: Soft, Non Tender, Non-Distended Skin: Ulcer/ Wound - reviewed photos of foot Vital Signs Temp Pulse Resp BP Pulse Ox 98.0 F 83 16 153/69 H 92 05/21/19 09:05 05/21/19 09:05 05/21/19 09:05 05/21/19 09:05 05/21/19 09:05 Oxygen Flow Rate (L/min) 2 Oxygen Delivery Method Room Air Weight: 110.9 kg Body Mass Index (BMI) 32.2 Finger Stick Blood Glucose 137 Intake and Output for Last 24 Hours 05/19/19 05/20/19 05/21/19 23:59 23:59 23:59 Intake Total 2809.75 / 2809.75 2385.25 / 2385.25 985.75 / 985.75 Output Total 5095 / 5095 7175 / 7175 1500 / 1500 Balance -2285.25 / -2285.25 -4789.75 / -4789.75 -514.25 / -514.25 Microbiology Past 72 Hours 05/18/19 15:50 Gram Stain - Final Bone - Left Foot Wound Culture - Preliminary No growth-Final to follow Anaerobic Culture - Preliminary No growth in 48 hours. 05/18/19 15:50 Gram Stain - Final Tissue - Left Foot Wound Culture - Preliminary No growth-Final to follow Anaerobic Culture - Preliminary No growth in 48 hours. Laboratory Tests Past 24 Hrs 05/21/19 05/21/19 05:45 05:45 WBC 9.6 RBC 3.72 L Hgb 11.3 L Hct 35.9 L MCV 96.5 H MCH 30.4 MCHC 31.5 L RDW Std Deviation 45.2 H RDW Coeff of Fatuma 12.8 Plt Count 280 MPV 9.6 Sodium 145 Potassium 3.9 Chloride 112 H Carbon Dioxide 27.0 Anion Gap 6 BUN 42 H Creatinine 2.08 H Estim Creat Clear Calc 41.08 Est GFR (MDRD) Af Amer 42 L Est GFR (MDRD) Non-Af 34 L BUN/Creatinine Ratio 20.2 H Glucose 130 H Calcium 8.4 L POC Glucose 05/21/19 05/21/19 05/20/19 11:23 08:04 21:38 POC Glucose 196 H 131 H 163 H 05/20/19 17:01 POC Glucose 207 H Medical Necessity - Tobacco Use Smoking Status: Current every day smoker Tobacco Use: Cigarettes Route of nutrition/ use of supplements: [] Nutritional Intake: [] IV Site: [] Dyer Catheter: [] - Assessment/Plan Antibiotics: [] Assessment/Plan: [] Active and Suspected Problems Diabetic infection of left foot (Acute) 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 Staph aureus pcr was neg from foot. Bcx x2 (+) alpha strep. Surg cxs with enterococcus, strep, klebs, GPC, acinetobacter, GPR. TTE with no veg seen. No fever. Now s/p I&D 05/[address] Claudio. DEAN slowly improving. 05/13 narrowed abx to unasyn. OR 05/18 for TMA. Surg cx and path neg for residual osteo. There was some pus seen in OR, so plan will be for d/c to ECF on 10 days of augmentin, ID followup prn. Will sign off, wrote rx, d/w primary team
--- NOTE | 2019-05-21 13:36 | CASEMGMT ---
SW faxed all necessary information to [facility] in order to obtain a level of care. ROBBIN faxed orders to [facility]. Cannot set up transport until level of care is received and patient's sister comes to [facility] with QIT paperwork which will not be until after 2p. Kylah FRANZ WORKERS COMPENSATION CLAIMS SPECIALIST
[2019-05-21 15:05] VITALS: BP 153/68; PULSE 67; RESP 16; TEMP 36.7; O2SAT 94
--- NOTE | 2019-05-21 15:05 | CASEMGMT ---
Patient's sister came to [facility] with the QIT paperwork, proof that one was set up and that money was deposited. SW made copies and faxed information to [facility] and Indu Conner at [facility]. SW called [facility] and they confirmed they received ROBBIN's request for level of care. Once ROBBIN receives the level of care SW will work on transportation. Kylah FRANZ MSW
[2019-05-21] MEDS: oxyCODONE 5 MG Tablet 10 MG PO (15:09)
--- NOTE | 2019-05-21 15:34 | CASEMGMT ---
Addendum entered by Kylah Cline 05/21/19 15:47: Natali from [facility] called and they can come and picking supervisor patient. She is on her way. She said she is not allowed to transfer patient so staff will have to do this. ROBBIN told her that is fine. ROBBIN notified RN of this plan and that they will have to transfer patient to wheelchair. ROBBIN also notified cupola charger insulation, clerk secretary, and patient. PASRR was completed on [facility]. Level of care was received as patient went on pending Medicaid number. He also had to open a [employer] trust to qualify for medicaid. Patient's pending number is [id number]. Plan: d/c to [facility] under intermediate level of care on a PASRR. Patient went on pending Medicaid. [facility] picked patient up via their wc van. Kylah FRANZ YIELD IMPROVEMENT ENGINEER Original Note: ROBBIN received level of care from [facility]. ROBBIN faxed this to [facility]. ROBBIN called Natali at [facility] and left her a voice mail inquiring if they would be able to picking supervisor patient or if they would be willing to pay for [employer]. Await return call. Kylah FRANZ YIELD IMPROVEMENT ENGINEER
--- NOTE | 2019-05-21 15:53 | NURSING ---
called report to Angela @ [facility]
== END 2019-05-21 16:05 | disposition intermediate care facility (04) | DRG 853 ==
LOC: ED 06:40 → PCU 08:30
PROVIDERS: Internal Medicine; Internal Medicine Infectious Disease; Internal Medicine Nephrology; Nurse Practitioner Family; Physician Assistant; Podiatrist; Admitting Provider Internal Medicine; Emergency Provider Emergency Medicine; Visit Provider Internal Medicine
PROC: 0Y6N0Z9 Detachment at Left Foot, Partial 1st Ray, Open Approach (ICD-10-PCS; principal; 2019-05-10 16:15)
PROC: 0Y6N0ZC Detachment at Left Foot, Partial 3rd Ray, Open Approach (ICD-10-PCS; CPT 28805; principal; 2019-05-18 15:30)
DX: A40.9 Streptococcal sepsis, unspecified (principal); E11.00 Type 2 diabetes mellitus with hyperosmolarity without nonketotic hyperglycemic-hyperosmolar coma (NKHHC); I21.A1 Myocardial infarction type 2; E87.1 Hypo-osmolality and hyponatremia; M86.172 Other acute osteomyelitis, left ankle and foot; M62.82 Rhabdomyolysis; N17.9 Acute kidney failure, unspecified; L02.612 Cutaneous abscess of left foot; R65.20 Severe sepsis without septic shock; E11.42 Type 2 diabetes mellitus with diabetic polyneuropathy; S80.211A Abrasion, right knee, initial encounter; E11.69 Type 2 diabetes mellitus with other specified complication; S80.212A Abrasion, left knee, initial encounter; F17.210 Nicotine dependence, cigarettes, uncomplicated; G47.33 Obstructive sleep apnea (adult) (pediatric); L97.529 Non-pressure chronic ulcer of other part of left foot with unspecified severity; E87.6 Hypokalemia; E11.628 Type 2 diabetes mellitus with other skin complications; E86.0 Dehydration; Z91.19 Patient's noncompliance with other medical treatment and regimen; I10 Essential (primary) hypertension; W18.30XA Fall on same level, unspecified, initial encounter; Y92.009 Unspecified place in unspecified non-institutional (private) residence as the place of occurrence of the external cause; E11.621 Type 2 diabetes mellitus with foot ulcer; R33.9 Retention of urine, unspecified; E66.01 Morbid (severe) obesity due to excess calories; Z68.32 Body mass index [BMI] 32.0-32.9, adult; M62.462 Contracture of muscle, left lower leg; B96.1 Klebsiella pneumoniae [K. pneumoniae] as the cause of diseases classified elsewhere; B95.2 Enterococcus as the cause of diseases classified elsewhere; Z79.4 Long term (current) use of insulin
CPT/HCPCS: 36415; 71045; 73620; 73630; 73718; 76000; 76770; 80048; 80053; 80061; 80069; 80202; 81001; 82436; 82550; 82570; 82962; 83036; 83605; 83735; 83874; 83930; 84100; 84133; 84156; 84300; 84484; 85025; 85027; 85610; 85652; 85730; 86140; 87015; 87040; 87070; 87075; 87077; 87086; 87088; 87102; 87106; 87116; 87186; 87205; 87206; 87640; 88304; 88305; 88311; 88312; 93005; 93306; 93923; 94762; 97110; 97162; 97166; 97530; 97535; 97802; 97803; 99285; 99406; J7030; J7040; J7050; J7120; Q9957; A4216; J0295; J0696

== ENCOUNTER → 2019-07-13 15:53 | Outpatient (CLI) | payer MEDICAID, SELFPAY ==
[2019-05-18 01:20] VITALS: BMI 32.2
[2019-07-13 16:57] LABS: Absolute Lymphocyte Count 2.17 X10^3/uL (0.83-4.51); Absolute Neutrophil Count 6.2 X10^3/uL (2.0-7.7); Basophil# 0.12 X10^3/uL; Basophil% 1.2 % (0-1); Eosinophil# 0.34 X10^3/uL; Eosinophils% 3.5 % (0-5); Hematocrit 39.5 % (40-54); Hemoglobin 12.8 g/dL (13.0-16.5); Lymphocyte # 2.17 X10^3/ul (4.0); Lymphocyte % 22.4 % (19-41); Mean Corp Hgb Conc 32.4 g/dL (32-36); Mean Corpuscular Hgb 29.9 pg (27.0-32.0); Mean Corpuscular Volume 92.3 fL (80-94); Mean Platelet Vol. 10.8 fl (6.2-12.0); Monocyte# 0.81 X10^3/uL; Monocyte% 8.4 % (0-10); NRBC Flagged by Analyzer 0 % (0-5); Neutrophil # 6.18 X10^3/uL (2.7-7.7); Neutrophil % 63.7 % (47-70); Platelet Count 240 K/mm3 (150-450); RBC Distribution Width CV 13.3 % (11.6-14.6); RBC Distribution Width SD 45.1 fl (35.1-43.9); Red Blood Count 4.28 M/mm3 (4.6-6.2); White Blood Count 9.7 K/mm3 (4.4-11.0)
[2019-07-13 17:59] LABS: ALB/GLOB Ratio 0.8 RATIO (0.9-2.4); AST(SGOT) 10 U/L (15-37); Alanine Aminotransfer ALT/SGPT 18 U/L (16-61); Albumin, Serum 3.3 g/dL (3.2-5.0); Alkaline Phosphatase 74 U/L (45-117); Anion Gap 6 (5-15); BUN 13 mg/dL (7-18); BUN/Creat Ratio 16.5 RATIO (10-20); Calcium,Total 8.9 mg/dL (8.5-10.1); Chloride 107 mmol/L (98-107); Creatinine, Serum 0.79 mg/dL (0.70-1.30); EST Glomerular Filtration Rate 106 mL/min (>60); Est Glom Filt Rate - Afr Amer 128 mL/min (>60); Globulin 4.4 g/dL (2.2-4.2); Glucose 190 mg/dL (74-106); PSA,Total - Annual Screen 1.27 ng/mL (0.00-4.00); Potassium 3.9 mmol/L (3.5-5.1); Protein, Total 7.7 g/dL (6.4-8.2); Sodium Level 139 mmol/L (136-145); Thyroid Stim Hormone (TSH) 1.88 uIU/mL (0.358-3.74)
== END ==
PROVIDERS: Visit Provider Family Medicine Geriatric Medicine
DX: E11.9 Type 2 diabetes mellitus without complications (principal); I10 Essential (primary) hypertension; Z12.5 Encounter for screening for malignant neoplasm of prostate
CPT/HCPCS: 36415; 80053; 84153; 84443; 85025; G0103

== ENCOUNTER → 2019-10-05 15:15 | Outpatient (CLI) | payer MEDICARE, MEDICAID, SELFPAY ==
[2019-05-18 01:20] VITALS: BMI 32.2
[2019-10-05 17:12] LABS: Albumin, Serum 3.5 g/dL (3.2-5.0); BUN 14 mg/dL (7-18); Calcium,Total 8.9 mg/dL (8.5-10.1); Chloride 101 mmol/L (98-107); Creatinine, Serum 1.17 mg/dL (0.70-1.30); EST Glomerular Filtration Rate 67 mL/min (>60); Est Glom Filt Rate - Afr Amer 81 mL/min (>60); Glucose 394 mg/dL (74-106); Phosphorus 3.3 mg/dL (2.5-4.9); Potassium 4.6 mmol/L (3.5-5.1); Sodium Level 135 mmol/L (136-145)
[2019-10-05 17:13] LABS: Protein, Urine (Random) 7.7 mg/dL (<11.9); Protein:Creat Ratio 164 mg/g CRE (0-200)
[2019-10-05 17:23] LABS: Hematocrit 51.8 % (40-54); Hemoglobin 16.8 g/dL (13.0-16.5); Mean Corp Hgb Conc 32.4 g/dL (32-36); Mean Corpuscular Hgb 29.8 pg (27.0-32.0); Mean Platelet Vol. 11.2 fl (6.2-12.0); Platelet Count 200 K/mm3 (150-450); RBC Distribution Width CV 12.8 % (11.6-14.6); RBC Distribution Width SD 43.7 fl (35.1-43.9); Red Blood Count 5.63 M/mm3 (4.6-6.2)
== END ==
PROVIDERS: PCP Family Medicine Geriatric Medicine; Visit Provider Internal Medicine Nephrology
DX: N17.0 Acute kidney failure with tubular necrosis (principal); E11.21 Type 2 diabetes mellitus with diabetic nephropathy
CPT/HCPCS: 36415; 80069; 82570; 84156; 85027

== ENCOUNTER → 2019-10-12 14:08 | Outpatient (CLI) | payer MEDICARE, MEDICAID, SELFPAY ==
[2019-05-18 01:20] VITALS: BMI 32.2
[2019-10-12 16:32] LABS: Absolute Lymphocyte Count 2.25 X10^3/uL (0.83-4.51); Absolute Neutrophil Count 7.1 X10^3/uL (2.0-7.7); Basophil# 0.12 X10^3/uL; Basophil% 1.1 % (0-1); Eosinophils% 2.8 % (0-5); Hematocrit 51.3 % (40-54); Hemoglobin 16.4 g/dL (13.0-16.5); Lymphocyte # 2.25 X10^3/ul (4.0); Lymphocyte % 21.3 % (19-41); Mean Corpuscular Hgb 29.3 pg (27.0-32.0); Mean Corpuscular Volume 91.8 fL (80-94); Mean Platelet Vol. 11.9 fl (6.2-12.0); Monocyte# 0.74 X10^3/uL; NRBC Flagged by Analyzer 0 % (0-5); Neutrophil # 7.09 X10^3/uL (2.7-7.7); Platelet Count 195 K/mm3 (150-450); RBC Distribution Width CV 13.2 % (11.6-14.6); RBC Distribution Width SD 44.2 fl (35.1-43.9); Red Blood Count 5.59 M/mm3 (4.6-6.2); White Blood Count 10.6 K/mm3 (4.4-11.0)
[2019-10-12 16:41] LABS: ALB/GLOB Ratio 0.9 RATIO (0.9-2.4); AST(SGOT) 10 U/L (15-37); Alanine Aminotransfer ALT/SGPT 30 U/L (16-61); Albumin, Serum 3.4 g/dL (3.2-5.0); Alkaline Phosphatase 88 U/L (45-117); Anion Gap 5 (5-15); BUN 12 mg/dL (7-18); BUN/Creat Ratio 12.9 RATIO (10-20); Calcium,Total 8.7 mg/dL (8.5-10.1); Chloride 102 mmol/L (98-107); Creatinine, Serum 0.93 mg/dL (0.70-1.30); EST Glomerular Filtration Rate 87 mL/min (>60); Est Glom Filt Rate - Afr Amer 106 mL/min (>60); Globulin 3.8 g/dL (2.2-4.2); Glucose 393 mg/dL (74-106); Potassium 4.4 mmol/L (3.5-5.1); Protein, Total 7.2 g/dL (6.4-8.2); Sodium Level 134 mmol/L (136-145); Thyroid Stim Hormone (TSH) 3.24 uIU/mL (0.358-3.74)
== END ==
PROVIDERS: PCP Family Medicine Geriatric Medicine; Visit Provider Family Medicine Geriatric Medicine
DX: E11.9 Type 2 diabetes mellitus without complications (principal); I10 Essential (primary) hypertension; E23.6 Other disorders of pituitary gland
CPT/HCPCS: 36415; 80053; 84403; 84443; 85025

== ENCOUNTER → 2019-11-19 13:47 | Outpatient (CLI) | payer MEDICARE, SELFPAY ==
[2019-10-18 09:24] VITALS: BMI 32.2
[2019-11-19 15:41] LABS: M R Staph aureus DNA By PCR Negative (Negative); Probe Check PASS; Specimen Processing Control PASS; Staph aureus DNA By PCR NEGATIVE (Negative)
== END ==
PROVIDERS: PCP Family Medicine Geriatric Medicine; Referring Provider Podiatrist; Visit Provider Podiatrist
DX: L03.115 Cellulitis of right lower limb (principal)
CPT/HCPCS: 87070; 87075; 87186; 87205; 87640

== ENCOUNTER → 2020-01-11 15:10 | Outpatient (CLI) | payer MEDICARE, SELFPAY ==
[2019-10-18 09:24] VITALS: BMI 32.2
[2020-01-11 15:39] LABS: Absolute Neutrophil Count 8.2 X10^3/uL (2.0-7.7); Basophil# 0.13 X10^3/uL; Eosinophils% 2.4 % (0-5); Hematocrit 49.8 % (40-54); Lymphocyte % 22.5 % (19-41); Mean Corp Hgb Conc 32.1 g/dL (32-36); Mean Corpuscular Hgb 29.1 pg (27.0-32.0); Mean Corpuscular Volume 90.7 fL (80-94); Mean Platelet Vol. 10.2 fl (6.2-12.0); Monocyte# 0.86 X10^3/uL; Monocyte% 6.9 % (0-10); NRBC Flagged by Analyzer 0 % (0-5); Neutrophil # 8.19 X10^3/uL (2.7-7.7); Neutrophil % 66.1 % (47-70); Platelet Count 208 K/mm3 (150-450); RBC Distribution Width CV 13.6 % (11.6-14.6); RBC Distribution Width SD 45.2 fl (35.1-43.9); Red Blood Count 5.49 M/mm3 (4.6-6.2); White Blood Count 12.4 K/mm3 (4.4-11.0)
[2020-01-11 16:15] LABS: ALB/GLOB Ratio 0.8 RATIO (0.9-2.4); AST(SGOT) 21 U/L (15-37); Alanine Aminotransfer ALT/SGPT 36 U/L (16-61); Albumin, Serum 3.2 g/dL (3.2-5.0); Alkaline Phosphatase 80 U/L (45-117); Anion Gap 6 (5-15); BUN 13 mg/dL (7-18); BUN/Creat Ratio 17.5 RATIO (10-20); Calcium,Total 8.8 mg/dL (8.5-10.1); Chloride 104 mmol/L (98-107); Cholesterol 82 mg/dL (200); Creatinine, Serum 0.74 mg/dL (0.70-1.30); EST Glomerular Filtration Rate 113 mL/min (>60); Est Glom Filt Rate - Afr Amer 137 mL/min (>60); Globulin 3.8 g/dL (2.2-4.2); Glucose 165 mg/dL (74-106); High Density Lipoprotein 57 mg/dL; Sodium Level 137 mmol/L (136-145); Thyroid Stim Hormone (TSH) 2.05 uIU/mL (0.358-3.74); Triglycerides 76 mg/dL; Very Low Density Lipoprotein 15 mg/dL (5-40)
== END ==
PROVIDERS: PCP Family Medicine Geriatric Medicine; Referring Provider Family Medicine Geriatric Medicine; Visit Provider Family Medicine Geriatric Medicine
DX: E11.9 Type 2 diabetes mellitus without complications (principal); F52.8 Other sexual dysfunction not due to a substance or known physiological condition; I10 Essential (primary) hypertension
CPT/HCPCS: 36415; 80053; 80061; 84403; 84443; 85025

== ENCOUNTER 2020-01-18 09:37 | Outpatient (RCR) | payer MEDICARE, MEDICAID, SELFPAY ==
[2020-01-12 08:42] VITALS: BMI 43.5
[2020-01-17 13:44] VITALS: BMI 43.5
== END 2020-01-20 23:59 ==
LOC: DC 09:37
PROVIDERS: PCP Family Medicine Geriatric Medicine; Visit Provider Podiatrist
DX: Z71.3 Dietary counseling and surveillance (principal); E66.9 Obesity, unspecified; Z68.41 Body mass index [BMI] 40.0-44.9, adult; E11.42 Type 2 diabetes mellitus with diabetic polyneuropathy
CPT/HCPCS: 97802

== ENCOUNTER 2020-01-19 09:00 | Outpatient (RCR) | payer MEDICARE, MEDICAID, SELFPAY ==
[2019-10-18 09:24] VITALS: BMI 32.2
[2020-01-12 08:42] VITALS: BP 146/78; PULSE 101; RESP 18; TEMP 34.3; BMI 43.5
--- NOTE | 2020-01-12 09:42 | PCM.WC.HP ---
(1) Chronic ulcer of right foot with fat layer exposed Status: Chronic Current Visit: Yes Code(s): L97.512 - Non-pressure chronic ulcer of other part of right foot with fat layer exposed (2) Obesity Status: Acute Current Visit: Yes Code(s): E66.9 - Obesity, unspecified (3) Tobacco abuse Status: Acute Current Visit: Yes Code(s): Z72.0 - Tobacco use (4) Polyneuropathy due to type 2 diabetes mellitus Status: Chronic Current Visit: Yes Code(s): E11.42 - Type 2 diabetes mellitus with diabetic polyneuropathy (5) Uncontrolled diabetes mellitus Status: Chronic Current Visit: Yes Code(s): E11.65 - Type 2 diabetes mellitus with hyperglycemia (6) Chronic ulcer of left foot with necrosis of bone Status: Chronic Current Visit: Yes Code(s): L97.524 - Non-pressure chronic ulcer of other part of left foot with necrosis of bone (7) Type 2 diabetes mellitus with diabetic polyneuropathy Status: Chronic Current Visit: Yes Code(s): E11.42 - Type 2 diabetes mellitus with diabetic polyneuropathy (8) Colonization status Status: Suspected Current Visit: Yes Code(s): Z22.9 - Carrier of infectious disease, unspecified History of Present Illness Date of Service: 01/12/20 Chief Complaint: This 64-year-old male with multiple comorbidities was seen today for bilateral foot ulcers. His right foot ulcer onset was November 16, 2019. His left foot ulcer onset was 12-07-2019 and prior to that he had a blister. He is previously known to me and had a left transmetatarsal amputation performed last year for treatment of limb threatening infection. That has since been healed. He has been changing the dressing daily with hydrogel and offloads with a cam walker boot and surgical shoes. He denies fever, chill, nausea, vomiting. He denies odor or redness. History of Wound: Stable Past Medical History Past Medical History: Chronic Problems (Last Reviewed 10/18/19 @ 09:[address] 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) Diabetes (Chronic) Type 2 diabetes mellitus (Chronic) Obstructive sleep apnea (Chronic) Uncontrolled diabetes mellitus (Chronic) Osteomyelitis of great toe of left foot (Chronic) Morbid obesity due to excess calories (Chronic) Tobacco dependence due to cigarettes (Chronic) Diabetic neuropathy (Chronic) Hypertension (Chronic) 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) Past Medical History: Hyperlipidemia, hypertension, stage II chronic kidney disease, diabetes with neuropathy, obstructive sleep apnea, tobacco dependence, obesity Surgical History: - - Surgery to the right ankle for fracture, left foot transmetatarsal amputation Allergies/Adverse Reactions: Allergies No Known Allergies Allergy (Verified 10/18/19 09:18) Home Medications: Ambulatory Orders Medication Instructions Recorded Calcium Carbonate [Calcium] 500 mg PO DAILY 06/23/17 Gabapentin [Neurontin] 300 mg PO TIDCM 06/23/17 Multivitamin [Multiple Vitamins] 1 ea PO DAILY 06/23/17 aspirin 81 mg tablet,delayed 81 mg PO DAILY 08/12/19 release atorvastatin 40 mg tablet 40 mg PO DAILY 10/18/19 bupropion HCl 150 mg 24 hr tablet, 150 mg PO BID tab 10/18/19 extended release lisinopril 10 mg tablet 10 mg PO DAILY 10/18/19 tamsulosin 0.4 mg capsule 0.4 mg PO DAILY@1730 cap 10/18/19 blood sugar diagnostic See Rx Instructions .ROUTE 10/28/19 .MEDSUPPLY #100 ea lancets 33 gauge See Rx Instructions .ROUTE 10/28/19 .MEDSUPPLY #100 ea insulin degludec 200 unit/mL (3 140 unit SC QHS #15 ml 12/27/19 mL) subcutaneous pen insulin aspart U-100 100 unit/mL 80 unit SC TID #75 ml 12/28/19 (3 mL) subcutaneous pen - Family History Maternal Family History: Family History (Last Reviewed 10/18/19 @ 09:[address] Juan Arteaga MD) Father Myocardial infarction Heart disease Mother Kidney disease Diabetes Sister Asthma Breast cancer Hypertension Brother Alcoholism Melanoma Diabetes, Renal Disease - on dialysis Paternal Family History: Family History (Last Reviewed 10/18/19 @ 09:[address] Juan Arteaga MD) Father Myocardial infarction Heart disease Mother Kidney disease Diabetes Sister Asthma Breast cancer Hypertension Brother Alcoholism Melanoma Heart Disease Sibling Family History: Family History (Last Reviewed 10/18/19 @ 09:[address] Juan Arteaga MD) Father Myocardial infarction Heart disease Mother Kidney disease Diabetes Sister Asthma Breast cancer Hypertension Brother Alcoholism Melanoma Cancer - breast cancer in his sister Smoking Status: Current every day smoker Review of Systems Constitutional: Denies: Chills, Fever Cardiovascular: Denies: Chest Pain, Claudication Respiratory: Denies: Cough, Shortness of Breath Gastrointestinal: Denies: Constipation, Diarrhea, Nausea Musculoskeletal: Denies: Leg Pain Skin: Reports: Skin Changes, Wounds Neurological: Reports: Numbness, Tingling Endocrine: Denies: Change in Body Habitus - Physical Exam Vital Signs Temp Pulse Resp BP 93.7 F L 101 H 18 146/78 H 01/12/20 08:42 01/12/20 08:42 01/12/20 08:42 01/12/20 08:42 General: Alert, Oriented x3, Cooperative, No apparent distress HEENT: Atraumatic Extremities: No cyanosis, Capillary Refill Less than 3 Seconds, No Calf Tenderness, Diminished Peripheral Pulses, Edema, - - Left transmetatarsal amputation. Dorsal contraction lesser toes on the right foot with prominent metatarsal head including tailor bunion deformity Skin: Ulcer/ Wound - No purulence, erythema, streaking, odor, infection is hairless and atrophic. There is a pale granular base right sub-fifth metatarsal head ulcer site. The plantar medial left foot ulcer that has progressed and now has a fibrous base with devitalized tissue. There is no probe to bone. There is a significant amount of peripheral callus noted, - - Skin is hairless and atrophic. There is no blister formation Wound Measurements and Assessment WC - Nurse 1 - General Ulcer Measurement Start: 01/12/20 08:41 Freq: Status: Active Protocol: Activity Type Activity Date Activity User E-Sign Co-Sign Detail Recorded Client Recorded Date Recorded By Document 01/12/20 08:42 DV [id number] 01/12/20 09:05 DV 01/12/20 08:42 Wound Center Nurse 1 [Ulcer Assessment] #2 -Combined with other wound No -Current Size (cm) - Length 0.5 -Current Size (cm) - Width 1.0 -Current Size (cm) - Depth 0.2 -Total Square Cm 0.50 -Date of Last Picture (Recall this 01/12/20 field) -Photo Taken Yes -Epithelialization None Present -Tunneling No -Undermining/Tunneling No -Circular Undermining No -Classification - Thickness Full Thickness without Exposed Support Structure -Exudate Amt Medium -Exudate Type Serosanguineous -Wound Margin Indistinct, Non -Visible -Granulation Amt None Present (0 %) -Granulation Quality N/A -Slough/Fibrin Yes -Necrosis Amt Medium (34-66%) -Necrotic Tissue Type Adherent Slough -Structure Exposed None/Limited to Skin Breakdown -Texture (Maria M-wound Skin Appearance) Assessed, Scarring -Moisture (Maria M-wound Skin Appearance Assessed, ) Maceration, Weeping -Color (Maria M-wound Skin Appearance) Assessed, Ecchymosis -Temperature (Maria M-wound Skin No Abnormality Appearance) (Pt Warm) -Tenderness on Palpation (Maria M-wound No Skin Appearance) -Ulcer Cleansing Rinsed/ Irrigated with Saline -Foul Odor after Cleansing No -Anesthetic Used 5% Lidocaine Gel #1 Left Plantar -Combined with other wound No -Current Size (cm) - Length 10.2 -Current Size (cm) - Width 1.1 -Current Size (cm) - Depth 0.7 -Total Square Cm 11. -Date of Last Picture (Recall this 01/12/20 field) -Photo Taken Yes -Epithelialization None Present -Tunneling No -Undermining/Tunneling No -Circular Undermining No -Classification - Thickness Full Thickness without Exposed Support Structure -Classification - [place] Grading ( Grade 2 Diabetic Ulcer) -Exudate Amt Medium -Exudate Type Serous -Wound Margin Thickened -Granulation Amt None Present (0 %) -Granulation Quality N/A -Slough/Fibrin Yes -Necrosis Amt Large (67-100%) -Necrotic Tissue Type Adherent Slough -Structure Exposed None/Limited to Skin Breakdown -Texture (Maria M-wound Skin Appearance) Assessed, Scarring -Moisture (Maria M-wound Skin Appearance Assessed, ) Maceration, Weeping -Color (Maria M-wound Skin Appearance) Assessed, Erythema -Temperature (Maria M-wound Skin No Abnormality Appearance) (Pt Warm) -Tenderness on Palpation (Maria M-wound No Skin Appearance) -Ulcer Cleansing Rinsed/ Irrigated with Saline -Foul Odor after Cleansing No -Anesthetic Used 5% Lidocaine Gel [Edema Assessment] -Lower Limb Edema Present Yes -Right Calf (cm) 41.5 -Right Ankle (cm) 25.2 -Left Calf (cm) 43.2 -Left Ankle (cm) 25.5 Musculoskeletal: No Tenderness to Palpation of Joints or Extremities, Muscle Wasting Neurological: - - Lack of epicritic sensation light touch is consistent with neuropathy status Psych/Mental Status: Normal Affect, Appropriate Debridement Note Wound debrided: sub 5th metatarsal head Laterality: Right Wound Grade/Stage: grade 1 Type of Debridement: Excisional debridement Anesthesia Used: 5% Lidocaine Gel Depth: in the subcutaneous layer Percentage of wound debrided: 100 Instrument Used: #15 blade Tissue Removed: fibrous, devitalized subcutaneous, biofilm, slough Severity: Fat Layer Exposed Amount of bleeding with debridement: Mild Bleeding Controlled with: Pressure Patient tolerated procedure well - Additional Wound Wound debrided: plantar medial foot Laterality: Left Wound Grade/Stage: grade 1 Type of Debridement: Excisional debridement Anesthesia Used: 5% Lidocaine Gel Depth: in the subcutaneous layer Percentage of wound debrided: 100 Instrument Used: #15 blade Tissue Removed: fibrous, devitalized subcutaneous, biofilm, slough Severity: Fat Layer Exposed Amount of bleeding with debridement: Mild Bleeding Controlled with: Pressure Patient tolerated procedure: Patient tolerated procedure well Assessment/Plan Active Problems (Last Reviewed 10/18/19 @ 09:[address] Juan Arteaga MD) Chronic ulcer of right foot with fat layer exposed (Chronic) Obesity (Acute) Tobacco abuse (Acute) Polyneuropathy due to type 2 diabetes mellitus (Chronic) Uncontrolled diabetes mellitus (Chronic) 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) Assessment: Right sub-fifth metatarsal head ulcer, grade 1. Left plantar medial foot ulcer, grade 1. Left transmetatarsal amputation. Diabetes with neuropathy that is uncontrolled. Obesity. Malnutrition suspected Plan: I reviewed and discussed his case. Subcutaneous excisional debridement was performed as noted in the clinical panel. To change dressing daily with hydrogel. I would like to consider advanced wound healing product application, epi-fix, and this will be considered after the quality of the left foot tissue has improved. Keep strict weight off of the sites of the left cam walker boot and a right surgical shoe. Previous dual density Plastizote liners have been added to relieve the sites at further pressure. His noninvasive vascular studies were reviewed from which were normal and intervention is not recommended. I recommend an updated left foot x-ray due to the increased depth of 0.7 cm today. An order was placed. His hemoglobin A1c was 13 in 2019 and he reports he had it done last week with a rating of 12.1%. His elevated glucose levels are significantly impairing his healing and I recommend he follows up with a electronics assembler and tester to better control his diet. A referral was provided today. His other labs were reviewed including CBC and CMP. WBC of 12.4 is noted. Smoking cessation was discussed in detail and he was advised on the healing impairment associated with this. To return to the wound healing center in 1 week or call sooner if he has any questions or concerns. He is reassured no local signs of infection are noted today. However his slight elevation in white blood cell count is noted and devitalized left foot ulcer site. A culture was obtained including aerobic, anaerobic, and MRSA PCR.
[2020-01-12 17:41] LABS: M R Staph aureus DNA By PCR Negative (Negative); Probe Check PASS; Specimen Processing Control PASS; Staph aureus DNA By PCR NEGATIVE (Negative)
[2020-01-19 09:19] VITALS: BP 160/82; PULSE 88; RESP 16; TEMP 36.5; BMI 43.5
--- NOTE | 2020-01-19 09:46 | PCM.WC.PN ---
(1) Chronic ulcer of right foot with fat layer exposed Status: Chronic Current Visit: Yes Code(s): L97.512 - Non-pressure chronic ulcer of other part of right foot with fat layer exposed (2) Obesity Status: Acute Current Visit: Yes Code(s): E66.9 - Obesity, unspecified (3) Tobacco abuse Status: Acute Current Visit: Yes Code(s): Z72.0 - Tobacco use (4) Polyneuropathy due to type 2 diabetes mellitus Status: Chronic Current Visit: Yes Code(s): E11.42 - Type 2 diabetes mellitus with diabetic polyneuropathy (5) Uncontrolled diabetes mellitus Status: Chronic Current Visit: Yes Code(s): E11.65 - Type 2 diabetes mellitus with hyperglycemia (6) Chronic ulcer of left foot with necrosis of bone Status: Chronic Current Visit: Yes Code(s): L97.524 - Non-pressure chronic ulcer of other part of left foot with necrosis of bone (7) Type 2 diabetes mellitus with diabetic polyneuropathy Status: Chronic Current Visit: Yes Qualifiers: Diabetes mellitus prison insulin use: with prison use Qualified Code(s): E11.42 - Type 2 diabetes mellitus with diabetic polyneuropathy; Z79.4 - senior care (current) use of insulin Code(s): E11.42 - Type 2 diabetes mellitus with diabetic polyneuropathy (8) Colonization status Status: Acute Current Visit: Yes Code(s): Z22.9 - Carrier of infectious disease, unspecified (9) Osteomyelitis, unspecified Status: Chronic Current Visit: Yes Code(s): M86.9 - Osteomyelitis, unspecified Type of Wound Date of Service: 01/19/20 Chief Complaint: Right and left foot ulcers History of Wound: This 64-year-old male with multiple comorbidities was seen today for bilateral foot ulcers. His right foot ulcer onset was November 16, 2019. His left foot ulcer onset was 12-07-2019 and prior to that he had a blister. He is previously known to me and had a left transmetatarsal amputation performed last year for treatment of limb threatening infection. That has since been healed. He has been changing the dressing daily with hydrogel and offloads with a cam walker boot and surgical shoes. He denies fever, chill, nausea, vomiting. He denies odor or redness. He has been washing with the antimicrobial soap and he relates he started this yesterday. He is also taking Chantix now and has not been smoking. He also wants his nutrition referral and has made some changes with some of his snacks. He is also starting to log his food that he is eating and perform some carbohydrate counting. Progress of Wound: Right stable. Left deteriorating - Physical Exam Vital Signs Temp Pulse Resp BP 97.7 F L 88 16 160/82 H 01/19/20 09:19 01/19/20 09:19 01/19/20 09:19 01/19/20 09:19 General: Alert, Oriented x3, Cooperative, No apparent distress Extremities: No cyanosis, Capillary Refill Less than 3 Seconds, No Calf Tenderness, Diminished Peripheral Pulses, Edema Skin: Ulcer/ Wound - No purulence, erythema, string, odor, alfred necrosis. The right sub-fifth metatarsal head ulcer is ready appears very healthy. The left ulcer has a granular base with centralized deeper fibrous plug. There is no probe directly to bone however this is a concern that is in near approximation. Wound Measurements and Assessment WC - Nurse 1 - General Ulcer Measurement Start: 01/12/20 08:41 Freq: Status: Active Protocol: Activity Type Activity Date Activity User E-Sign Co-Sign Detail Recorded Client Recorded Date Recorded By Document 01/19/20 09:19 RB [id number] 01/19/20 09:21 RB 01/19/20 09:19 Wound Center Nurse 1 [Ulcer Assessment] #2 right 5th metatarsal -Combined with other wound No -Current Size (cm) - Length 0.2 -Current Size (cm) - Width 0.2 -Current Size (cm) - Depth 0.2 -Total Square Cm 0.04 -Tunneling No -Undermining/Tunneling No -Circular Undermining No -Exudate Amt Small -Exudate Type Serosanguineous -Wound Margin Thickened -Granulation Amt Medium (34-66%) -Granulation Quality [place] -Slough/Fibrin Yes -Necrosis Amt Small (1-33%) -Necrotic Tissue Type Adherent Slough -Structure Exposed N/A -Texture (Maria M-wound Skin Appearance) Callus -Moisture (Maria M-wound Skin Appearance Assessed ) -Color (Maria M-wound Skin Appearance) Assessed -Temperature (Maria M-wound Skin No Abnormality Appearance) (Pt Warm) -Tenderness on Palpation (Maria M-wound No Skin Appearance) -Ulcer Cleansing Wound Cleanser -Foul Odor after Cleansing No #1 Left Plantar medial -Combined with other wound No -Current Size (cm) - Length 1.6 -Current Size (cm) - Width 1.7 -Current Size (cm) - Depth 0.6 -Total Square Cm 2.72 -Tunneling No -Undermining/Tunneling No -Circular Undermining No -Exudate Amt Medium -Exudate Type Serosanguineous -Wound Margin Thickened -Granulation Amt Medium (34-66%) -Granulation Quality [place] -Slough/Fibrin Yes -Necrosis Amt Small (1-33%) -Necrotic Tissue Type Adherent Slough -Structure Exposed N/A -Texture (Maria M-wound Skin Appearance) Callus -Moisture (Maria M-wound Skin Appearance Assessed ) -Color (Maria M-wound Skin Appearance) Assessed -Temperature (Maria M-wound Skin No Abnormality Appearance) (Pt Warm) -Tenderness on Palpation (Maria M-wound No Skin Appearance) -Ulcer Cleansing Wound Cleanser -Foul Odor after Cleansing No -Anesthetic Used 4% Lidocaine Solution WC - Nurse 2 - General Ulcer CM Notes Start: 01/12/20 08:41 Freq: Status: Active Protocol: Activity Type Activity Date Activity User E-Sign Co-Sign Detail Recorded Client Recorded Date Recorded By Document 01/19/20 09:28 JF [id number] 01/19/20 09:33 CASSY 01/19/20 09:28 Wound Center Nurse 2 [Procedure/Treatment] #2 right 5th metatarsal -Time 09:28 -Correct Patient Yes -Correct Side, Site, Position Yes -Correct Procedure Yes -Procedure Performed Yes -Type of Procedure Debridement -Clinical Debridement Subcutaneous -Post Debridement Size (cm) - Length 0.1 -Post Debridement Size (cm) - Width 0.1 -Post Debridement Size (cm) - Depth 0.1 -Total Square Cm 0.01 -Wound/Ulcer Outcome Not Healed -Ulcer Cleansing Rinsed/ Irrigated with Saline -Foul Odor after Cleansing No -Bioengineered Tissue No -Bleeding Controlled with Pressure -Offloading Yes -Type of Offloading Surgical Shoe -Treatment Response Procedure Tolerated Well #1 Left Plantar medial -Time 09:29 -Correct Patient Yes -Correct Side, Site, Position Yes -Correct Procedure Yes -Procedure Performed Yes -Type of Procedure Debridement -Clinical Debridement Subcutaneous -Post Debridement Size (cm) - Length 1.5 -Post Debridement Size (cm) - Width 1.5 -Post Debridement Size (cm) - Depth 0.8 -Total Square Cm 2.25 -Wound/Ulcer Outcome Not Healed -Ulcer Cleansing Rinsed/ Irrigated with Saline -Foul Odor after Cleansing No -Bioengineered Tissue No -Bleeding Controlled with Pressure -Offloading Yes -Type of Offloading Camwalker -Treatment Response Procedure Tolerated Well [See Physician Procedure note for Specifics] Pain Scale: 0-10 Numeric [Pain] -Is Patient Pain Free? Yes Musculoskeletal: No Tenderness to Palpation of Joints or Extremities, Muscle Wasting, - - Left transmetatarsal amputation. Right prominent fifth metatarsal head Neurological: - - Lack of epicritic sensation light touch is consistent with neuropathy status Psych/Mental Status: Normal Affect, Appropriate Debridement Note Post-Debridement Measurements/Treatment WC - Nurse 2 - General Ulcer CM Notes Start: 01/12/20 08:41 Freq: Status: Active Protocol: Activity Type Activity Date Activity User E-Sign Co-Sign Detail Recorded Client Recorded Date Recorded By Document 01/12/20 09:24 [id number] 01/12/20 09:49 Document 01/19/20 09:28 [id number] 01/19/20 09:33 01/12/20 01/19/20 09:24 09:28 Wound Center Nurse 2 #2 right 5th metatarsal -Time 09:25 09:28 -Correct Patient Yes Yes -Correct Side, Site, Position Yes Yes -Correct Procedure Yes Yes -Procedure Performed Yes Yes -Type of Procedure Debridement Debridement -Clinical Debridement Subcutaneous Subcutaneous -Post Debridement Size (cm) - Length 0.6 0.1 -Post Debridement Size (cm) - Width 1.1 0.1 -Post Debridement Size (cm) - Depth 0.2 0.1 -Total Square Cm 0.66 0.01 -Wound/Ulcer Outcome Not Healed Not Healed -Ulcer Cleansing Rinsed/ Rinsed/ Irrigated with Irrigated with Saline Saline -Foul Odor after Cleansing No No -Bioengineered Tissue No No -Bleeding Controlled with Pressure Pressure -Offloading No Yes -Type of Offloading Surgical Shoe -Treatment Response Procedure Procedure Tolerated Well Tolerated Well #1 Left Plantar medial -Time 09:25 09:29 -Correct Patient Yes Yes -Correct Side, Site, Position Yes Yes -Correct Procedure Yes Yes -Procedure Performed Yes Yes -Type of Procedure Debridement Debridement -Clinical Debridement Subcutaneous Subcutaneous -Post Debridement Size (cm) - Length 1.2 1.5 -Post Debridement Size (cm) - Width 1.2 1.5 -Post Debridement Size (cm) - Depth 0.8 0.8 -Total Square Cm 1.44 2.25 -Wound/Ulcer Outcome Not Healed Not Healed -Ulcer Cleansing Rinsed/ Rinsed/ Irrigated with Irrigated with Saline Saline -Foul Odor after Cleansing No No -Bioengineered Tissue No No -Bleeding Controlled with Pressure Pressure -Offloading Yes Yes -Type of Offloading Camwalker Camwalker -Treatment Response Procedure Procedure Tolerated Well Tolerated Well Pain Scale: 0-10 Numeric Is Patient Pain Free? Yes Yes Wound debrided: Sub-fifth metatarsal head Laterality: Right Wound Grade/Stage: Grade 1 Type of Debridement: Excisional debridement Anesthesia Used: 5% Lidocaine Gel Depth: in the subcutaneous layer Percentage of wound debrided: 100 Instrument Used: #15 blade Tissue Removed: fibrous, devitalized subcutaneous, biofilm, slough Severity: Fat Layer Exposed Amount of bleeding with debridement: Mild Bleeding Controlled with: Pressure Patient tolerated procedure well - Additional Wound Wound debrided: plantar medial foot Laterality: Left Wound Grade/Stage: grade 1 Type of Debridement: Excisional debridement Anesthesia Used: 5% Lidocaine Gel Depth: in the subcutaneous layer Percentage of wound debrided: 100 Instrument Used: #15 blade Tissue Removed: fibrous, devitalized subcutaneous, biofilm, slough Severity: Fat Layer Exposed Amount of bleeding with debridement: Mild Bleeding Controlled with: Pressure Patient tolerated procedure: Patient tolerated procedure well Assessment/Plan Active Problems (Last Reviewed 01/17/20 @ 13:[address] Juan Arteaga MD) Chronic ulcer of right foot with fat layer exposed (Chronic) Obesity (Acute) Tobacco abuse (Acute) Colonization status (Acute) Osteomyelitis, unspecified (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) Uncontrolled diabetes mellitus (Chronic) 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) Assessment: Right sub-fifth metatarsal head ulcer, grade 1. Left plantar medial foot ulcer, grade 1. Osteomyelitis left foot work-up in process. Left transmetatarsal amputation. Diabetes with neuropathy that is uncontrolled. Obesity. Malnutrition suspected Plan: I reviewed and discussed his case. Subcutaneous excisional debridement was performed as noted in the clinical panel. To change dressing daily with hydrogel. I would like to consider advanced wound healing product application, epi-fix, and this will be considered after the quality of the left foot tissue has improved. Keep strict weight off of the sites of the left cam walker boot and a right surgical shoe. Previous dual density Plastizote liners have been added to relieve the sites at further pressure. His noninvasive vascular studies were reviewed from which were normal and intervention is not recommended. I recommend an updated left foot x-ray due to the increased depth of 0.7 cm today. This was performed at the [facility] in 01-17-2020. The right foot does not have any fractures, dislocation, foreign body, osseous destruction, soft tissue emphysema. The left foot does not have any fracture, dislocation, foreign body, alfred osseous destruction, soft tissue emphysema either however there is a subtle area of radiolucency to the first metatarsal in one view. Given his deeper ulcer status there is a concern of osteomyelitis progression. His hemoglobin A1c was 13 in 2019 and he reports he had it done last week with a rating of 12.1%. His elevated glucose levels are significantly impairing his healing and I recommend he follows up with a link wire fabric machine tender to better control his diet. A referral was provided, and he has attended. He is currently making adjustments with his eating habits. His other labs were reviewed including CBC and CMP. WBC of 12.4 is noted. I recommend updating his ESR and C-reactive protein and an order was provided today. Smoking cessation was discussed in detail and he was advised on the healing impairment associated with this. To continue with his smoking cessation program. His cultures are reviewed from last week and multi-organism growth. He has continued anteriorization even with antimicrobial soap. I recommend an antibiotic at this time and a prescription for Augmentin and ciprofloxacin was provided. This will be called into [facility] in [place]. I also recommend infectious disease referral for work-up of osteomyelitis due to his subtle x-ray findings and progressive ulcer deterioration in the left foot there is a concern of osteomyelitis. He was advised to return to the wound healing center in 1 week or call sooner if he has any questions or concerns. He is reassured no local signs of infection are noted today. However his slight elevation in white blood cell count is noted and devitalized left foot ulcer site. A culture was obtained including aerobic, anaerobic, and MRSA PCR.
[2020-01-19 11:40] LABS: Erythrocyte Sedimentation Rate 54 mm/hr (0-20)
[2020-01-19 11:41] LABS: Absolute Lymphocyte Count 2.56 X10^3/uL (0.83-4.51); Absolute Neutrophil Count 7.5 X10^3/uL (2.0-7.7); Basophil# 0.15 X10^3/uL; Basophil% 1.3 % (0-1); Eosinophil# 0.33 X10^3/uL; Eosinophils% 2.9 % (0-5); Hematocrit 48.8 % (40-54); Hemoglobin 16.1 g/dL (13.0-16.5); Lymphocyte # 2.56 X10^3/ul (4.0); Lymphocyte % 22.3 % (19-41); Mean Corpuscular Volume 90.9 fL (80-94); Mean Platelet Vol. 10.9 fl (6.2-12.0); Monocyte# 0.86 X10^3/uL; Monocyte% 7.5 % (0-10); NRBC Flagged by Analyzer 0 % (0-5); Neutrophil # 7.45 X10^3/uL (2.7-7.7); Neutrophil % 64.9 % (47-70); Platelet Count 227 K/mm3 (150-450); RBC Distribution Width CV 13.8 % (11.6-14.6); RBC Distribution Width SD 46.1 fl (35.1-43.9); Red Blood Count 5.37 M/mm3 (4.6-6.2); White Blood Count 11.5 K/mm3 (4.4-11.0)
== END 2020-01-20 23:59 ==
LOC: WC 09:00
PROVIDERS: PCP Family Medicine Geriatric Medicine; Referring Provider Podiatrist; Visit Provider Podiatrist
DX: E11.621 Type 2 diabetes mellitus with foot ulcer (principal); E66.9 Obesity, unspecified; E11.42 Type 2 diabetes mellitus with diabetic polyneuropathy; L97.512 Non-pressure chronic ulcer of other part of right foot with fat layer exposed; E11.65 Type 2 diabetes mellitus with hyperglycemia; L97.522 Non-pressure chronic ulcer of other part of left foot with fat layer exposed; E78.2 Mixed hyperlipidemia; E11.22 Type 2 diabetes mellitus with diabetic chronic kidney disease; E66.01 Morbid (severe) obesity due to excess calories; Z68.41 Body mass index [BMI] 40.0-44.9, adult; N18.2 Chronic kidney disease, stage 2 (mild); I12.9 Hypertensive chronic kidney disease with stage 1 through stage 4 chronic kidney disease, or unspecified chronic kidney disease; G47.33 Obstructive sleep apnea (adult) (pediatric); F17.210 Nicotine dependence, cigarettes, uncomplicated; Z79.899 Other long term (current) drug therapy
CPT/HCPCS: 11042; 36415; 85025; 85652; 86140; 87070; 87075; 87077; 87186; 87205; 87640; 99213; G0463

== ENCOUNTER 2020-01-26 14:46 | Outpatient (RCR) | payer MEDICARE, MEDICAID, SELFPAY ==
[2020-01-26 13:12] VITALS: BMI 43.5
== END 2020-02-20 23:59 ==
LOC: DC 14:46
PROVIDERS: PCP Family Medicine Geriatric Medicine; Visit Provider Podiatrist
DX: Z71.3 Dietary counseling and surveillance (principal); E66.9 Obesity, unspecified; Z68.41 Body mass index [BMI] 40.0-44.9, adult; E11.42 Type 2 diabetes mellitus with diabetic polyneuropathy; E11.621 Type 2 diabetes mellitus with foot ulcer; L97.512 Non-pressure chronic ulcer of other part of right foot with fat layer exposed; L97.522 Non-pressure chronic ulcer of other part of left foot with fat layer exposed; E11.69 Type 2 diabetes mellitus with other specified complication; M86.672 Other chronic osteomyelitis, left ankle and foot; E11.65 Type 2 diabetes mellitus with hyperglycemia; F17.200 Nicotine dependence, unspecified, uncomplicated; E11.51 Type 2 diabetes mellitus with diabetic peripheral angiopathy without gangrene
CPT/HCPCS: 11042; G0108

== ENCOUNTER 2020-01-28 10:50 | Outpatient (RCR) | payer MEDICARE, MEDICAID, SELFPAY ==
[2020-01-28 11:57] LABS: Erythrocyte Sedimentation Rate 53 mm/hr (0-20)
[2020-01-28 11:58] LABS: Hematocrit 48.1 % (40-54); Hemoglobin 15.7 g/dL (13.0-16.5); Mean Corp Hgb Conc 32.6 g/dL (32-36); Mean Corpuscular Hgb 30.8 pg (27.0-32.0); Mean Corpuscular Volume 94.3 fL (80-94); Mean Platelet Vol. 10.8 fl (6.2-12.0); Platelet Count 214 K/mm3 (150-450); RBC Distribution Width CV 13.9 % (11.6-14.6); RBC Distribution Width SD 47.5 fl (35.1-43.9); White Blood Count 11.8 K/mm3 (4.4-11.0)
[2020-01-28 12:04] LABS: AST(SGOT) 21 U/L (15-37); Alanine Aminotransfer ALT/SGPT 36 U/L (16-61); Albumin, Serum 3.2 g/dL (3.2-5.0); Alkaline Phosphatase 79 U/L (45-117); Anion Gap 7 (5-15); BUN 11 mg/dL (7-18); BUN/Creat Ratio 14.5 RATIO (10-20); Bilirubin, Direct 0.14 mg/dL (0.00-0.30); Calcium,Total 8.7 mg/dL (8.5-10.1); Chloride 107 mmol/L (98-107); Creatinine, Serum 0.76 mg/dL (0.70-1.30); EST Glomerular Filtration Rate 110 mL/min (>60); Est Glom Filt Rate - Afr Amer 133 mL/min (>60); Globulin 3.9 g/dL (2.2-4.2); Glucose 220 mg/dL (74-106); Potassium 4.3 mmol/L (3.5-5.1); Protein, Total 7.1 g/dL (6.4-8.2); Sodium Level 138 mmol/L (136-145)
== END 2020-01-28 18:00 | disposition home or self-care (01) ==
LOC: LAB 10:50
PROVIDERS: PCP Family Medicine Geriatric Medicine; Referring Provider Internal Medicine Infectious Disease; Visit Provider Internal Medicine Infectious Disease
DX: M86.172 Other acute osteomyelitis, left ankle and foot (principal)
CPT/HCPCS: 36415; 80048; 80076; 85027; 85652

== ENCOUNTER 2020-02-18 14:32 | Outpatient (RCR) | payer MEDICARE, MEDICAID, SELFPAY ==
[2020-01-21 00:22] VITALS: BP 160/82; PULSE 88; RESP 16; TEMP 36.5
[2020-01-26 13:12] VITALS: BP 121/54; PULSE 97; RESP 20; TEMP 36
--- NOTE | 2020-01-26 13:58 | PCM.WC.PN ---
(1) Chronic ulcer of right foot with fat layer exposed Status: Chronic Current Visit: Yes Code(s): L97.512 - Non-pressure chronic ulcer of other part of right foot with fat layer exposed (2) Tobacco abuse Status: Acute Current Visit: Yes Code(s): Z72.0 - Tobacco use (3) Colonization status Status: Acute Current Visit: Yes Code(s): Z22.9 - Carrier of infectious disease, unspecified (4) Type 2 diabetes mellitus with diabetic polyneuropathy Status: Chronic Current Visit: No Qualifiers: Code(s): E11.42 - Type 2 diabetes mellitus with diabetic polyneuropathy (5) Chronic ulcer of left foot with fat layer exposed Status: Chronic Current Visit: Yes Code(s): L97.522 - Non-pressure chronic ulcer of other part of left foot with fat layer exposed (6) Osteomyelitis of left foot Status: Suspected Current Visit: Yes Code(s): M86.9 - Osteomyelitis, unspecified Type of Wound Date of Service: 01/26/20 Chief Complaint: Right and left foot ulcers History of Wound: This 64-year-old male with multiple comorbidities was seen today for bilateral foot ulcers. His right foot ulcer onset was November 16, 2019. His left foot ulcer onset was 12-07-2019 and prior to that he had a blister. He is previously known to me and had a left transmetatarsal amputation performed last year for treatment of limb threatening infection. That has since been healed. He has been changing the dressing daily with hydrogel and offloads with a cam walker boot and surgical shoes. He denies fever, chill, nausea, vomiting. He denies odor or redness. He has been washing with the antimicrobial soap and he relates he started this yesterday. He is also taking Chantix now and has not been smoking. He also uses a nicotine patch. He obtained his updated lab work. He takes Augmentin and ciprofloxacin that was prescribed last week. He is also scheduled to see infectious disease for evaluation of left foot deteriorating ulcer with concern of bone infection. He tries to offload with a boot on the left and surgical shoe on the right. He has a knee roller at home and has not been using it all of the time. He asked if he should just go in a wheelchair. Progress of Wound: Right stable. Left deteriorating - Physical Exam Vital Signs Temp Pulse Resp BP 96.8 F L 97 20 H 121/54 H 01/26/20 13:12 01/26/20 13:12 01/26/20 13:12 01/26/20 13:12 General: Alert, Oriented x3, Cooperative, No apparent distress HEENT: Atraumatic Extremities: Diminished Peripheral Pulses, Edema Skin: Ulcer/ Wound - No purulence, erythema, streaking, odor, infection. The adjacent skin is hairless and atrophic. The inflammation on the left sub-first ray ulcer site is decreasing. There continues to be deeper central fibrous areas that has exposed capsule. There is no probe to bone. There is a lot of callus with some moisture surrounding. There is no bogginess or fluctuance on palpation. The compartments to bilateral lower extremity remain soft. The right foot ulcer has significant peripheral epithelialization and is healing well with a small granular base ulcer Wound Measurements and Assessment WC - Nurse 1 - General Ulcer Measurement Start: 01/26/20 09:27 Freq: Status: Active Protocol: Activity Type Activity Date Activity User E-Sign Co-Sign Detail Recorded Client Recorded Date Recorded By Document 01/26/20 13:12 DL [id number] 01/26/20 13:20 DL 01/26/20 13:12 Wound Center Nurse 1 [Ulcer Assessment] #2 right 5th metatarsal -Current Size (cm) - Length 0.2 -Current Size (cm) - Width 0.2 -Current Size (cm) - Depth 0.1 -Total Square Cm 0.04 -Photo Taken No -Exudate Amt Small -Exudate Type Serosanguineous -Wound Margin Thickened -Granulation Amt None Present (0 %) -Necrosis Amt Small (1-33%) -Necrotic Tissue Type Adherent Slough -Structure Exposed N/A -Texture (Maria M-wound Skin Appearance) Callus -Moisture (Maria M-wound Skin Appearance Maceration ) -Color (Maria M-wound Skin Appearance) Hemosiderin Staining -Temperature (Maria M-wound Skin No Abnormality Appearance) (Pt Warm) -Tenderness on Palpation (Maria M-wound No Skin Appearance) -Ulcer Cleansing Rinsed/ Irrigated with Saline -Foul Odor after Cleansing No -Anesthetic Used 4% Lidocaine Solution #1 Left Plantar medial -Current Size (cm) - Length 1.2 -Current Size (cm) - Width 1.4 -Current Size (cm) - Depth 0.5 -Total Square Cm 1.68 -Photo Taken No -Exudate Amt Medium -Exudate Type Serosanguineous -Wound Margin Thickened -Granulation Amt Medium (34-66%) -Granulation Quality [place] -Necrosis Amt Medium (34-66%) -Necrotic Tissue Type Adherent Slough -Structure Exposed N/A -Texture (Maria M-wound Skin Appearance) Callus -Moisture (Maria M-wound Skin Appearance Maceration ) -Color (Maria M-wound Skin Appearance) Hemosiderin Staining -Temperature (Maria M-wound Skin No Abnormality Appearance) (Pt Warm) -Tenderness on Palpation (Maria M-wound No Skin Appearance) -Ulcer Cleansing Rinsed/ Irrigated with Saline -Foul Odor after Cleansing No -Anesthetic Used 4% Lidocaine Solution [Edema Assessment] -Right Calf (cm) 42 -Right Ankle (cm) 25 -Left Calf (cm) 42.6 -Left Ankle (cm) 25.6 WC - Nurse 2 - General Ulcer CM Notes Start: 01/26/20 09:27 Freq: Status: Active Protocol: Activity Type Activity Date Activity User E-Sign Co-Sign Detail Recorded Client Recorded Date Recorded By Document 01/26/20 13:31 JF [id number] 01/26/20 13:35 JF 01/26/20 13:31 Wound Center Nurse 2 [Procedure/Treatment] #2 right 5th metatarsal -Time 13:31 -Correct Patient Yes -Correct Side, Site, Position Yes -Correct Procedure Yes -Procedure Performed Yes -Type of Procedure Debridement -Clinical Debridement Subcutaneous -Post Debridement Size (cm) - Length 0.4 -Post Debridement Size (cm) - Width 0.2 -Post Debridement Size (cm) - Depth 0.2 -Total Square Cm 0.08 -Wound/Ulcer Outcome Not Healed -Ulcer Cleansing Rinsed/ Irrigated with Saline -Foul Odor after Cleansing No -Bioengineered Tissue No -Bleeding Controlled with Pressure -Offloading Yes -Type of Offloading Camwalker -Treatment Response Procedure Tolerated Well #1 Left Plantar medial -Time 13:31 -Correct Patient Yes -Correct Side, Site, Position Yes -Correct Procedure Yes -Procedure Performed Yes -Type of Procedure Debridement -Clinical Debridement Subcutaneous -Post Debridement Size (cm) - Length 1.8 -Post Debridement Size (cm) - Width 1.8 -Post Debridement Size (cm) - Depth 0.4 -Total Square Cm 3.24 -Wound/Ulcer Outcome Not Healed -Ulcer Cleansing Rinsed/ Irrigated with Saline -Foul Odor after Cleansing No -Bioengineered Tissue No -Bleeding Controlled with Pressure -Offloading Yes -Type of Offloading Camwalker -Treatment Response Procedure Tolerated Well [See Physician Procedure note for Specifics] Pain Scale: 0-10 Numeric [Pain] -Is Patient Pain Free? Yes Musculoskeletal: No Tenderness to Palpation of Joints or Extremities, Muscle Wasting, - - Left transmetatarsal amputation. Right dorsal contraction of lesser digits with varus rotation of fifth toe and prominent fifth metatarsal head Neurological: - - Lack of epicritic sensation light touch is consistent with neuropathy status Psych/Mental Status: Normal Affect, Appropriate Debridement Note Post-Debridement Measurements/Treatment WC - Nurse 2 - General Ulcer CM Notes Start: 01/26/20 09:27 Freq: Status: Active Protocol: Activity Type Activity Date Activity User E-Sign Co-Sign Detail Recorded Client Recorded Date Recorded By Document 01/26/20 13:31 JF [id number] 01/26/20 13:35 [email or web address] 01/26/20 13:31 Wound Center Nurse 2 #2 right 5th metatarsal -Time 13:31 -Correct Patient Yes -Correct Side, Site, Position Yes -Correct Procedure Yes -Procedure Performed Yes -Type of Procedure Debridement -Clinical Debridement Subcutaneous -Post Debridement Size (cm) - Length 0.4 -Post Debridement Size (cm) - Width 0.2 -Post Debridement Size (cm) - Depth 0.2 -Total Square Cm 0.08 -Wound/Ulcer Outcome Not Healed -Ulcer Cleansing Rinsed/ Irrigated with Saline -Foul Odor after Cleansing No -Bioengineered Tissue No -Bleeding Controlled with Pressure -Offloading Yes -Type of Offloading Camwalker -Treatment Response Procedure Tolerated Well #1 Left Plantar medial -Time 13:31 -Correct Patient Yes -Correct Side, Site, Position Yes -Correct Procedure Yes -Procedure Performed Yes -Type of Procedure Debridement -Clinical Debridement Subcutaneous -Post Debridement Size (cm) - Length 1.8 -Post Debridement Size (cm) - Width 1.8 -Post Debridement Size (cm) - Depth 0.4 -Total Square Cm 3.24 -Wound/Ulcer Outcome Not Healed -Ulcer Cleansing Rinsed/ Irrigated with Saline -Foul Odor after Cleansing No -Bioengineered Tissue No -Bleeding Controlled with Pressure -Offloading Yes -Type of Offloading Camwalker -Treatment Response Procedure Tolerated Well Pain Scale: 0-10 Numeric Is Patient Pain Free? Yes Wound debrided: sub 5th metatarsal head Laterality: Right Wound Grade/Stage: grade 1 Type of Debridement: Excisional debridement Anesthesia Used: 5% Lidocaine Gel Depth: in the subcutaneous layer Percentage of wound debrided: 100 Instrument Used: #15 blade Tissue Removed: fibrous, devitalized subcutaneous, biofilm, slough Severity: Fat Layer Exposed Amount of bleeding with debridement: Mild Bleeding Controlled with: Pressure Patient tolerated procedure well - Additional Wound Wound debrided: plantar medial foot Laterality: Left Wound Grade/Stage: grade 2 Type of Debridement: Excisional debridement Anesthesia Used: 5% Lidocaine Gel Depth: in the subcutaneous layer Percentage of wound debrided: 100 Instrument Used: #15 blade Tissue Removed: fibrous, devitalized subcutaneous, biofilm, slough Severity: Fat Layer Exposed Amount of bleeding with debridement: Mild Bleeding Controlled with: Pressure Patient tolerated procedure: Patient tolerated procedure well Assessment/Plan Active Problems (Last Reviewed 01/17/20 @ 13:[address] Juan Arteaga MD) Chronic ulcer of right foot with fat layer exposed (Chronic) Tobacco abuse (Acute) Colonization status (Acute) Chronic ulcer of left foot with fat layer exposed (Chronic) Assessment: Right sub-fifth metatarsal head ulcer, grade 1. Left plantar medial foot ulcer, grade 2. Osteomyelitis left foot work-up in process. Left transmetatarsal amputation. Diabetes with neuropathy that is uncontrolled. Obesity. Malnutrition suspected Plan: I reviewed and discussed his case. Subcutaneous excisional debridement was performed as noted in the clinical panel. To change dressing daily with hydrogel. I would like to consider advanced wound healing product application, epi-fix, and this will be considered after the quality of the left foot tissue has improved. Prior authorization will be initiated. Keep strict weight off of the sites of the left cam walker boot and a right surgical shoe. Previous dual density Plastizote liners have been added to relieve the sites at further pressure. His noninvasive vascular studies were reviewed from which were normal and intervention is not recommended. I recommend an updated left foot x-ray due to the increased depth of 0.7 cm today. This was performed at the [facility] center in 01-17-2020. The right foot does not have any fractures, dislocation, foreign body, osseous destruction, soft tissue emphysema. The left foot does not have any fracture, dislocation, foreign body, alfred osseous destruction, soft tissue emphysema either however there is a subtle area of radiolucency to the first metatarsal in one view. Given his deeper ulcer status there is a concern of osteomyelitis progression and now exposed capsule tissue. His hemoglobin A1c was 13 in 2019 and he reports he had it done last week with a rating of 12.1%. His elevated glucose levels are significantly impairing his healing and I recommend he follows up with a c 13 catapult operator to better control his diet. A referral was provided, and he has attended. He is currently making adjustments with his eating habits. His other labs were reviewed including CBC and CMP. WBC of 12.4 is noted. ESR was updated at 54 and C-reactive protein was 14.3. Smoking cessation was discussed in detail and he was advised on the healing impairment associated with this. To continue with his smoking cessation program. I also recommend discontinuation of nicotine products for this also contributes to small vessel contraction. His cultures are reviewed from last week and multi-organism growth including Klebsiella oxytoca, strep viridans, corynebacterium striatum, Enterococcus faecalis. He has continued with daily cleansing with antimicrobial soap. I recommend an antibiotic at this time and a prescription for Augmentin and ciprofloxacin was provided. I also recommend infectious disease referral for work-up of osteomyelitis due to his subtle x-ray findings and progressive ulcer deterioration in the left foot there is a concern of osteomyelitis. He was seen by Dr. Pathak and a 6-week course will be planned. If his status continues to demonstrate lack of improvement or resumes to his worsening state, an MRI is recommended. Input from infectious diseases greatly appreciated. He was advised to return to the wound healing center in 1 week or call sooner if he has any questions or concerns. He is reassured no local signs of infection are noted today. I answered all of his questions today. It was reiterated he needs to maintain a better nonweightbearing status to the left foot. I do not recommend a wheelchair at this time to prevent complete deconditioning. I do however encourage him to use his knee roller at all times while in house. This can be used mainly for the left foot because this is the higher risk status at this time.
--- NOTE | 2020-01-26 22:54 | PCM.PN.ID ---
Patient Problems: Active and Suspected Problems (Last Reviewed 01/17/20 @ 13:[address] Juan Arteaga MD) Tobacco abuse (Acute) Colonization status (Acute) Osteomyelitis of left foot (Suspected) Subjective: Developed blister and then ulcer over L foot which is s/p TMA. No fever or chills, did have some redness and drainage. No pain due to neuropathy. Wound cx sent, started on cipro and augmentin. Foot improving with abx over past week. No n/v/d. - Physical Exam Vitals/I&O's: Vital Signs Temp Pulse Resp BP 96.8 F L 97 20 H 121/54 H 01/26/20 13:12 01/26/20 13:12 01/26/20 13:12 01/26/20 13:12 Weight: 149.685 kg Body Mass Index (BMI) 43.5 Finger Stick Blood Glucose 137 General: Alert, Cooperative, No apparent distress Lungs: Clear to auscultation, Normal air movement Cardiovascular: Regular rate, Regular Rhythm Abdomen: Soft, Non Tender, Non-Distended Skin: Ulcer/ Wound - L foot Medical Necessity - Tobacco Use Smoking Status: Current every day smoker Route of nutrition/ use of supplements: [] Nutritional Intake: [] IV Site: [] Dyer Catheter: [] - Assessment/Plan Antibiotics: [] Assessment/Plan: [] Active and Suspected Problems (Last Reviewed 01/17/20 @ 13:[address] Juan Arteaga MD) Tobacco abuse (Acute) Colonization status (Acute) Osteomyelitis of left foot (Suspected) Suspected L foot osteo which is s/p prior TMA. Improving on cipro/augmentin, will extend course to a full 6 weeks. Wound cx with klebs, strep viridans, enterococcus, and corynebacteria. Will check bmp, cbc, LFT, and esr now and again in 2 weeks. Return to clinic in 2 weeks. D/w Dr. Claudio, thank you for this referral.
[2020-02-02 13:52] VITALS: BP 154/71; PULSE 85; RESP 18; TEMP 36.3; BMI 43.5
--- NOTE | 2020-02-02 23:53 | PCM.WC.PN ---
(1) Chronic ulcer of right foot with fat layer exposed Status: Chronic Code(s): L97.512 - Non-pressure chronic ulcer of other part of right foot with fat layer exposed (2) Tobacco abuse Status: Acute Code(s): Z72.0 - Tobacco use (3) Colonization status Status: Acute Code(s): Z22.9 - Carrier of infectious disease, unspecified (4) Type 2 diabetes mellitus with diabetic polyneuropathy Status: Chronic Qualifiers: Code(s): E11.42 - Type 2 diabetes mellitus with diabetic polyneuropathy (5) Chronic ulcer of left foot with fat layer exposed Status: Chronic Code(s): L97.522 - Non-pressure chronic ulcer of other part of left foot with fat layer exposed (6) Osteomyelitis of left foot Status: Suspected Code(s): M86.9 - Osteomyelitis, unspecified (7) Diabetic ulcer of left foot Status: Chronic Qualifiers: Diabetic foot ulcer location: midfoot Code(s): E11.621 - Type 2 diabetes mellitus with foot ulcer; L97.529 - Non-pressure chronic ulcer of other part of left foot with unspecified severity Type of Wound Date of Service: 02/02/20 Chief Complaint: Right and left foot ulcers History of Wound: This 64-year-old male with multiple comorbidities was seen today for bilateral foot ulcers. His right foot ulcer onset was November 16, 2019. His left foot ulcer onset was 12-07-2019 and prior to that he had a blister. He is previously known to me and had a left transmetatarsal amputation performed last year for treatment of limb threatening infection. That has since been healed. He has been changing the dressing daily with hydrogel and offloads with a cam walker boot and surgical shoes. He denies fever, chill, nausea, vomiting. He denies odor or redness. He has been washing with the antimicrobial soap as advised. He is also taking Chantix now and has not been smoking. He also uses a nicotine patch. He obtained his updated lab work. He has seen infectious disease in regards to concern of early onset of acute osteomyelitis of this remaining first metatarsal. He will undergo a 6-week course of oral antibiotics and has been taking antibiotics as advised. He denies diarrhea or other known side effects. If his status worsens he is amenable to get an MRI. He tries to offload with a boot on the left and surgical shoe on the right. He has a knee roller at home and has not been using it all of the time. Progress of Wound: Right stable. Left stable - Physical Exam Vital Signs Temp Pulse Resp BP 97.3 F L 85 18 154/71 H 02/02/20 13:52 02/02/20 13:52 02/02/20 13:52 02/02/20 13:52 General: Alert, Oriented x3, Cooperative, No apparent distress HEENT: Atraumatic Extremities: No cyanosis, Capillary Refill Less than 3 Seconds, No Calf Tenderness, Diminished Peripheral Pulses, Edema Skin: Ulcer/ Wound - No purulence, erythema, streaking, odor, infection. The skin is atrophic and hairless. The tissue quality of the ulcer bed on the left foot has improved and is less devitalized. Wound Measurements and Assessment WC - Nurse 1 - General Ulcer Measurement Start: 01/26/20 09:27 Freq: Status: Active Protocol: Activity Type Activity Date Activity User E-Sign Co-Sign Detail Recorded Client Recorded Date Recorded By Document 02/02/20 13:52 PL [id number] 02/02/20 14:07 PL 02/02/20 13:52 Wound Center Nurse 1 [Ulcer Assessment] #2 right 5th metatarsal -Combined with other wound No -Current Size (cm) - Length 0.2 -Current Size (cm) - Width 0.5 -Current Size (cm) - Depth 0.1 -Total Square Cm 0.10 -Photo Taken No -Epithelialization None Present -Tunneling No -Undermining/Tunneling No -Circular Undermining No -Exudate Amt Small -Exudate Type Serosanguineous -Granulation Amt Large (67-100%) -Granulation Quality [place] -Slough/Fibrin Yes -Necrosis Amt Small (1-33%) -Necrotic Tissue Type Adherent Slough -Texture (Maria M-wound Skin Appearance) Callus -Moisture (Maria M-wound Skin Appearance No Abnormality ) -Color (Maria M-wound Skin Appearance) No Abnormality -Temperature (Maria M-wound Skin No Abnormality Appearance) (Pt Warm) -Ulcer Cleansing Rinsed/ Irrigated with Saline -Foul Odor after Cleansing No #1 Left Plantar medial -Combined with other wound No -Current Size (cm) - Length 1.5 -Current Size (cm) - Width 1.4 -Current Size (cm) - Depth 0.5 -Total Square Cm 2.10 -Photo Taken No -Epithelialization None Present -Tunneling No -Undermining/Tunneling No -Circular Undermining No -Exudate Amt Small -Exudate Type Serosanguineous -Granulation Amt Large (67-100%) -Granulation Quality [place] -Slough/Fibrin Yes -Necrosis Amt Small (1-33%) -Necrotic Tissue Type Adherent Slough -Texture (Maria M-wound Skin Appearance) Callus -Ulcer Cleansing Rinsed/ Irrigated with Saline -Foul Odor after Cleansing No WC - Nurse 2 - General Ulcer CM Notes Start: 01/26/20 09:27 Freq: Status: Active Protocol: Activity Type Activity Date Activity User E-Sign Co-Sign Detail Recorded Client Recorded Date Recorded By Document 02/02/20 14:21 [email or web address] [id number] 02/02/20 14:26 CASSY 02/02/20 14:21 Wound Center Nurse 2 [Procedure/Treatment] #2 right 5th metatarsal -Time 14:21 -Correct Patient Yes -Correct Side, Site, Position Yes -Correct Procedure Yes -Procedure Performed Yes -Type of Procedure Debridement -Clinical Debridement Subcutaneous -Post Debridement Size (cm) - Length 0.3 -Post Debridement Size (cm) - Width 0.5 -Post Debridement Size (cm) - Depth 0.1 -Total Square Cm 0.15 -Wound/Ulcer Outcome Not Healed -Ulcer Cleansing Rinsed/ Irrigated with Saline -Foul Odor after Cleansing No -Bioengineered Tissue No -Bleeding Controlled with Pressure -Offloading Yes -Type of Offloading Surgical Shoe -Treatment Response Procedure Tolerated Well #1 Left Plantar medial -Time 14:21 -Correct Patient Yes -Correct Side, Site, Position Yes -Correct Procedure Yes -Procedure Performed Yes -Type of Procedure Debridement -Clinical Debridement Subcutaneous -Post Debridement Size (cm) - Length 1.5 -Post Debridement Size (cm) - Width 1.5 -Post Debridement Size (cm) - Depth 0.4 -Total Square Cm 2.25 -Ulcer Cleansing Rinsed/ Irrigated with Saline -Foul Odor after Cleansing No -Bioengineered Tissue No -Bleeding Controlled with Pressure -Offloading Yes -Type of Offloading Camwalker -Treatment Response Procedure Tolerated Well [See Physician Procedure note for Specifics] Pain Scale: 0-10 Numeric [Pain] -Is Patient Pain Free? Yes Musculoskeletal: No Tenderness to Palpation of Joints or Extremities, Muscle Wasting Neurological: - - Lack of epicritic sensation light touch is consistent with neuropathy status Psych/Mental Status: Normal Affect, Appropriate Debridement Note Post-Debridement Measurements/Treatment WC - Nurse 2 - General Ulcer CM Notes Start: 01/26/20 09:27 Freq: Status: Active Protocol: Activity Type Activity Date Activity User E-Sign Co-Sign Detail Recorded Client Recorded Date Recorded By Document 01/26/20 13:31 [id number] 01/26/20 13:35 Document 02/02/20 14:21 [id number] 02/02/20 14:26 01/26/20 02/02/20 13:31 14:21 Wound Center Nurse 2 #2 right 5th metatarsal -Time 13:31 14:21 -Correct Patient Yes Yes -Correct Side, Site, Position Yes Yes -Correct Procedure Yes Yes -Procedure Performed Yes Yes -Type of Procedure Debridement Debridement -Clinical Debridement Subcutaneous Subcutaneous -Post Debridement Size (cm) - Length 0.4 0.3 -Post Debridement Size (cm) - Width 0.2 0.5 -Post Debridement Size (cm) - Depth 0.2 0.1 -Total Square Cm 0.08 0.15 -Wound/Ulcer Outcome Not Healed Not Healed -Ulcer Cleansing Rinsed/ Rinsed/ Irrigated with Irrigated with Saline Saline -Foul Odor after Cleansing No No -Bioengineered Tissue No No -Bleeding Controlled with Pressure Pressure -Offloading Yes Yes -Type of Offloading Camwalker Surgical Shoe -Treatment Response Procedure Procedure Tolerated Well Tolerated Well #1 Left Plantar medial -Time 13:31 14:21 -Correct Patient Yes Yes -Correct Side, Site, Position Yes Yes -Correct Procedure Yes Yes -Procedure Performed Yes Yes -Type of Procedure Debridement Debridement -Clinical Debridement Subcutaneous Subcutaneous -Post Debridement Size (cm) - Length 1.8 1.5 -Post Debridement Size (cm) - Width 1.8 1.5 -Post Debridement Size (cm) - Depth 0.4 0.4 -Total Square Cm 3.24 2.25 -Wound/Ulcer Outcome Not Healed -Ulcer Cleansing Rinsed/ Rinsed/ Irrigated with Irrigated with Saline Saline -Foul Odor after Cleansing No No -Bioengineered Tissue No No -Bleeding Controlled with Pressure Pressure -Offloading Yes Yes -Type of Offloading Camwalker Camwalker -Treatment Response Procedure Procedure Tolerated Well Tolerated Well Pain Scale: 0-10 Numeric Is Patient Pain Free? Yes Yes Wound debrided: sub 5th metatarsal head Laterality: Right Wound Grade/Stage: grade 1 Type of Debridement: Excisional debridement Anesthesia Used: 5% Lidocaine Gel Depth: in the subcutaneous layer Percentage of wound debrided: 100 Instrument Used: #15 blade Tissue Removed: fibrous, devitalized subcutaneous, biofilm, slough Severity: Fat Layer Exposed Amount of bleeding with debridement: Mild Bleeding Controlled with: Pressure Patient tolerated procedure well - Additional Wound Wound debrided: plantar medial foot Laterality: Left Wound Grade/Stage: grade 3 Type of Debridement: Excisional debridement Depth: in the subcutaneous layer Percentage of wound debrided: 100 Instrument Used: #15 blade Tissue Removed: fibrous, devitalized subcutaneous, biofilm, slough Severity: Fat Layer Exposed Amount of bleeding with debridement: Mild Bleeding Controlled with: Pressure Patient tolerated procedure: Patient tolerated procedure well Assessment/Plan Assessment: Right sub-fifth metatarsal head ulcer, grade 1. Left plantar medial foot ulcer, grade. Osteomyelitis left foot is suspected and treated at this time. Left transmetatarsal amputation. Diabetes with neuropathy that is uncontrolled. Obesity. Malnutrition suspected Plan: I reviewed and discussed his case. Subcutaneous excisional debridement was performed as noted in the clinical panel. To change dressing daily with hydrogel. I would like to consider advanced wound healing product application, epi-fix, and this will be considered after the quality of the left foot tissue has improved. Prior authorization has been initiated. Keep strict weight off of the sites of the left cam walker boot and a right surgical shoe. Previous dual density Plastizote liners have been added to relieve the sites at further pressure. His noninvasive vascular studies were reviewed from which were normal and intervention is not recommended. I recommend an updated left foot x-ray due to the increased depth of 0.7 cm today. This was performed at the [facility] in 01-17-2020. The right foot does not have any fractures, dislocation, foreign body, osseous destruction, soft tissue emphysema. The left foot does not have any fracture, dislocation, foreign body, alfred osseous destruction, soft tissue emphysema either however there is a subtle area of radiolucency to the first metatarsal in one view. Given his deeper ulcer status there is a concern of osteomyelitis progression and now exposed capsule tissue. His hemoglobin A1c was 13 in 2019 and he reports he had it done last week with a rating of 12.1%. His elevated glucose levels are significantly impairing his healing and I recommend he follows up with a pharmacology professor to better control his diet. A referral was provided, and he has attended. He is currently making adjustments with his eating habits. His other labs were reviewed including CBC and CMP. WBC of 12.4 is noted. ESR was updated at 54 and C-reactive protein was 14.3. Smoking cessation was discussed in detail and he was advised on the healing impairment associated with this. To continue with his smoking cessation program. I also recommend discontinuation of nicotine products for this also contributes to small vessel contraction. His cultures are reviewed from last week and multi-organism growth including Klebsiella oxytoca, strep viridans, corynebacterium striatum, Enterococcus faecalis. He has continued with daily cleansing with antimicrobial soap. I recommend an antibiotic at this time and a prescription for Augmentin and ciprofloxacin was provided. I also recommend infectious disease referral for work-up of osteomyelitis due to his subtle x-ray findings and progressive ulcer deterioration in the left foot there is a concern of osteomyelitis. He was seen by Dr. Pathak and a 6-week course will be planned for treatment of osteomyelitis. If his status continues to demonstrate lack of improvement or resumes to his worsening state, an MRI is recommended. Input from infectious diseases greatly appreciated. This patient may also be a candidate for hyperbaric oxygen therapy and this will be discussed with him. He was advised to return to the wound healing center in 1 week or call sooner if he has any questions or concerns. He is reassured no local signs of infection are noted today. I answered all of his questions today. It was reiterated he needs to maintain a better nonweightbearing status to the left foot. I do not recommend a wheelchair at this time to prevent complete deconditioning. I do however encourage him to use his knee roller at all times while in house. This can be used mainly for the left foot because this is the higher risk status at this time.
[2020-02-09 14:03] VITALS: BP 154/70; PULSE 70; RESP 22; TEMP 36.7; BMI 43.5
--- NOTE | 2020-02-09 15:29 | PN.PCM_ITS ---
(1) Chronic ulcer of left foot with fat layer exposed Status: Chronic Code(s): L97.522 - Non-pressure chronic ulcer of other part of left foot with fat layer exposed (2) Chronic ulcer of right foot with fat layer exposed Status: Resolved Code(s): L97.512 - Non-pressure chronic ulcer of other part of right foot with fat layer exposed (3) Tobacco abuse Status: Acute Code(s): Z72.0 - Tobacco use (4) Colonization status Status: Acute Code(s): Z22.9 - Carrier of infectious disease, unspecified (5) Type 2 diabetes mellitus with diabetic polyneuropathy Status: Chronic Qualifiers: Code(s): E11.42 - Type 2 diabetes mellitus with diabetic polyneuropathy (6) Osteomyelitis of left foot Status: Chronic Code(s): M86.9 - Osteomyelitis, unspecified (7) Diabetic ulcer of left foot Status: Chronic Qualifiers: Diabetic foot ulcer location: midfoot Diabetes mellitus type: type 2 Code(s): E11.621 - Type 2 diabetes mellitus with foot ulcer; L97.529 - Non- pressure chronic ulcer of other part of left foot with unspecified severity (8) Other specified peripheral vascular diseases Status: Chronic Code(s): I73.89 - Other specified peripheral vascular diseases Type of Wound Date of Service: 02/09/20 Chief Complaint: Right and left foot ulcers History of Wound: This 64-year-old male with multiple comorbidities was seen today for bilateral foot ulcers. His right foot ulcer onset was November 16, 2019. He denies drainage and thinks that this ulcer site may have healed. His left foot ulcer onset was 12-07-2019. He is previously known to me and had a left transmetatarsal amputation performed last year for treatment of limb threatening infection. That has since been healed. He has been changing the dressing daily with hydrogel and offloads with a cam walker boot and surgical shoes. He denies fever, chill, nausea, vomiting. He denies odor or redness. He has been washing with the antimicrobial soap as advised. He saw vascular surgery reports that he has some additional procedure scheduled. He has been trying to use a knee roller. Progress of Wound: Right healed. Left stable - Physical Exam Vital Signs Temp Pulse Resp BP 98.1 F 70 22 H 154/70 H 02/09/20 14:03 02/09/20 14:03 02/09/20 14:03 02/09/20 14:03 General: Alert, Oriented x3, Cooperative, No apparent distress Extremities: No cyanosis, Capillary Refill Less than 3 Seconds, No Calf Tenderness, Diminished Peripheral Pulses, Edema Skin: Ulcer/ Wound - No purulence, erythema, streaking, odor, full epithelialization noted to the right fifth toe in this site has healed. The left foot ulcer site remains open with granular base and continued peripheral callus noted. There is probing to deeper structures and not directly to the bone. There is no bogginess or fluctuance on palpation. The compartments of the foot remain soft. The transmetatarsal amputation on the left foot is noted Wound Measurements and Assessment WC - Nurse 1 - General Ulcer Measurement Start: 01/26/20 09:27 Freq: Status: Active Protocol: Activity Type Activity Date Activity User E-Sign Co-Sign Detail Recorded Client Recorded Date Recorded By Document 02/09/20 14:03 DL [id number] 02/09/20 14:06 DL 02/09/20 14:03 Wound Center Nurse 1 [Ulcer Assessment] #2 right 5th metatarsal -Current Size (cm) - Length 0.6 -Current Size (cm) - Width 0.2 -Current Size (cm) - Depth 0.1 -Total Square Cm 0.12 -Photo Taken No -Exudate Amt None Present -Wound Margin Thickened -Granulation Amt None Present (0 %) -Necrosis Amt Small (1-33%) -Necrotic Tissue Type Adherent Slough -Structure Exposed N/A -Texture (Maria M-wound Skin Appearance) Callus -Moisture (Maria M-wound Skin Appearance Dry/Scaly ) -Color (Maria M-wound Skin Appearance) No Abnormality -Temperature (Maria M-wound Skin No Abnormality Appearance) (Pt Warm) -Tenderness on Palpation (Maria M-wound No Skin Appearance) -Ulcer Cleansing Wound Cleanser -Foul Odor after Cleansing No -Anesthetic Used 4% Lidocaine Solution #1 Left Plantar medial -Current Size (cm) - Length 1.7 -Current Size (cm) - Width 1.5 -Current Size (cm) - Depth 0.6 -Total Square Cm 2.55 -Photo Taken No -Exudate Amt Small -Exudate Type Serosanguineous -Wound Margin Thickened -Granulation Amt Medium (34-66%) -Granulation Quality Pale,[place] -Necrosis Amt Medium (34-66%) -Necrotic Tissue Type Adherent Slough -Structure Exposed N/A -Texture (Maria M-wound Skin Appearance) Callus,Scarring -Moisture (Maria M-wound Skin Appearance Dry/Scaly ) -Color (Maria M-wound Skin Appearance) No Abnormality -Temperature (Maria M-wound Skin No Abnormality Appearance) (Pt Warm) -Tenderness on Palpation (Maria M-wound No Skin Appearance) -Ulcer Cleansing Wound Cleanser -Foul Odor after Cleansing No -Anesthetic Used 4% Lidocaine Solution WC - Nurse 2 - General Ulcer CM Notes Start: 01/26/20 09:27 Freq: Status: Active Protocol: Activity Type Activity Date Activity User E-Sign Co-Sign Detail Recorded Client Recorded Date Recorded By Document 02/09/20 14:31 CASSY [id number] 02/09/20 14:35 CASSY 02/09/20 14:31 Wound Center Nurse 2 [Procedure/Treatment] #2 right 5th metatarsal -Correct Patient No -Correct Side, Site, Position No -Correct Procedure No -Procedure Performed No -Post Debridement Size (cm) - Length 0 -Post Debridement Size (cm) - Width 0 -Post Debridement Size (cm) - Depth 0 -Total Square Cm 0 -Wound/Ulcer Outcome Healed- Epithelialized #1 Left Plantar medial -Time 14:32 -Correct Patient Yes -Correct Side, Site, Position Yes -Correct Procedure Yes -Procedure Performed Yes -Type of Procedure Debridement -Clinical Debridement Subcutaneous -Post Debridement Size (cm) - Length 1.6 -Post Debridement Size (cm) - Width 1.6 -Post Debridement Size (cm) - Depth 0.3 -Total Square Cm 2.56 -Wound/Ulcer Outcome Not Healed -Ulcer Cleansing Rinsed/ Irrigated with Saline -Foul Odor after Cleansing No -Bioengineered Tissue No -Bleeding Controlled with Pressure -Offloading Yes -Type of Offloading Camwalker -Treatment Response Procedure Tolerated Well [See Physician Procedure note for Specifics] Pain Scale: 0-10 Numeric [Pain] -Is Patient Pain Free? Yes Musculoskeletal: No Tenderness to Palpation of Joints or Extremities, Muscle Wasting Neurological: - - Lack of epicritic sensation light touch is consistent with neuropathy Psych/Mental Status: Normal Affect, Appropriate Debridement Note Post-Debridement Measurements/Treatment WC - Nurse 2 - General Ulcer CM Notes Start: 01/26/20 09:27 Freq: Status: Active Protocol: Activity Type Activity Date Activity User E-Sign Co-Sign Detail Recorded Client Recorded Date Recorded By Document 01/26/20 13:31 [id number] 01/26/20 13:35 Document 02/02/20 14:21 [id number] 02/02/20 14:26 Document 02/09/20 14:31 [id number] 02/09/20 14:35 01/26/20 02/02/20 02/09/20 13:31 14:21 14:31 Wound Center Nurse 2 #2 right 5th metatarsal -Time 13:31 14:21 -Correct Patient Yes Yes No -Correct Side, Site, Position Yes Yes No -Correct Procedure Yes Yes No -Procedure Performed Yes Yes No -Type of Procedure Debridement Debridement -Clinical Debridement Subcutaneous Subcutaneous -Post Debridement Size (cm) - Length 0.4 0.3 0 -Post Debridement Size (cm) - Width 0.2 0.5 0 -Post Debridement Size (cm) - Depth 0.2 0.1 0 -Total Square Cm 0.08 0.15 0 -Wound/Ulcer Outcome Not Healed Not Healed Healed- Epithelialized -Ulcer Cleansing Rinsed/ Rinsed/ Irrigated with Irrigated with Saline Saline -Foul Odor after Cleansing No No -Bioengineered Tissue No No -Bleeding Controlled with Pressure Pressure -Offloading Yes Yes -Type of Offloading Camwalker Surgical Shoe -Treatment Response Procedure Procedure Tolerated Well Tolerated Well #1 Left Plantar medial -Time 13:31 14:21 14:32 -Correct Patient Yes Yes Yes -Correct Side, Site, Position Yes Yes Yes -Correct Procedure Yes Yes Yes -Procedure Performed Yes Yes Yes -Type of Procedure Debridement Debridement Debridement -Clinical Debridement Subcutaneous Subcutaneous Subcutaneous -Post Debridement Size (cm) - Length 1.8 1.5 1.6 -Post Debridement Size (cm) - Width 1.8 1.5 1.6 -Post Debridement Size (cm) - Depth 0.4 0.4 0.3 -Total Square Cm 3.24 2.25 2.56 -Wound/Ulcer Outcome Not Healed Not Healed -Ulcer Cleansing Rinsed/ Rinsed/ Rinsed/ Irrigated with Irrigated with Irrigated with Saline Saline Saline -Foul Odor after Cleansing No No No -Bioengineered Tissue No No No -Bleeding Controlled with Pressure Pressure Pressure -Offloading Yes Yes Yes -Type of Offloading Camwalker Camwalker Camwalker -Treatment Response Procedure Procedure Procedure Tolerated Well Tolerated Well Tolerated Well Pain Scale: 0-10 Numeric Is Patient Pain Free? Yes Yes Yes Wound debrided: plantar medial foot Laterality: Left Wound Grade/Stage: grade 3 Type of Debridement: Excisional debridement Depth: Down to and including healthy tissue, in the subcutaneous layer Percentage of wound debrided: 100 Instrument Used: #15 blade Tissue Removed: devitalized subcutaneous, biofilm, slough, fibrous Severity: Fat Layer Exposed Amount of bleeding with debridement: Mild Bleeding Controlled with: Pressure Patient tolerated procedure well Assessment/Plan Assessment: Right sub-fifth metatarsal head ulcer healed. Left plantar medial foot ulcer, grade 3. Osteomyelitis left foot is treated medically at this time. Left transmetatarsal amputation. Diabetes with neuropathy that is uncontrolled. Obesity. Malnutrition suspected Plan: I reviewed and discussed his case. Subcutaneous excisional debridement was performed as noted in the clinical panel to the left foot. His right foot ulcer site is healed and he was reassured there are no signs of infection. To change dressing daily with hydrogel. I would like to consider advanced wound healing product application, epi-fix, and this will be considered after the quality of the left foot tissue has improved. Prior authorization has been initiated and he is not ready to proceed with this at this time. Keep strict weight off of the sites of the left cam walker boot and a right surgical shoe. Previous dual density Plastizote liners have been added to relieve the sites at further pressure. His noninvasive vascular studies were reviewed from which were normal and intervention was previously not recommended. However, this patient did go for follow-up earlier today and he reports procedure scheduled. I advised him to follow-up with all of Dr. Bonilla's recommendations to optimize his healing process. I recommend an updated left foot x-ray due to the increased depth of 0.7 cm today. This was performed at the [facility] center in 01-17-2020. The right foot does not have any fractures, dislocation, foreign body, osseous destruction, soft tissue emphysema. The left foot does not have any fracture, dislocation, foreign body, alfred osseous destruction, soft tissue emphysema either however there is a subtle area of radiolucency to the first metatarsal in one view. Given his deeper ulcer status there is a concern of osteomyelitis progression and now exposed capsule tissue. His hemoglobin A1c was 13 in 2019 and he reports he had it done last week with a rating of 12.1%. His elevated glucose levels are significantly impairing his healing and I recommend he follows up with a audit mgr to better control his diet. A referral was provided, and he has attended. He is currently making adjustments with his eating habits. His other labs were reviewed including CBC and CMP. WBC of 12.4 is noted. ESR was updated at 54 and C-reactive protein was 14.3. Smoking cessation was discussed in detail and he was advised on the healing impairment associated with this. To continue with his smoking cessation program. I also recommend discontinuation of nicotine products for this also contributes to small vessel contraction. His cultures are reviewed from last week and multi-organism growth including Klebsiella oxytoca, strep viridans, corynebacterium striatum, Enterococcus faecalis. He has continued with daily cleansing with antimicrobial soap. I recommend an antibiotic at this time and a prescription for Augmentin and ciprofloxacin was provided. I also recommend infectious disease referral for work-up of osteomyelitis due to his subtle x- ray findings and progressive ulcer deterioration in the left foot there is a concern of osteomyelitis. He was seen by Dr. Pathak and a 6-week course will be planned for treatment of osteomyelitis. If his status continues to demonstrate lack of improvement or resumes to his worsening state, an MRI is recommended. Input from infectious diseases greatly appreciated. This patient may also be a candidate for hyperbaric oxygen therapy and this will be discussed with him. He was advised to return to the wound healing center in 1 week or call sooner if he has any questions or concerns. He is reassured no local signs of infection are noted today. I answered all of his questions today. It was reiterated he needs to maintain a better nonweightbearing status to the left f oot. I do not recommend a wheelchair at this time to prevent complete deconditioning. I do however encourage him to use his knee roller at all times while in house.
[2020-02-16 13:36] VITALS: BP 149/60; PULSE 102; RESP 22; TEMP 37.3; BMI 43.5
--- NOTE | 2020-02-16 16:45 | PN.PCM_ITS ---
(1) Osteomyelitis of left foot Status: Chronic Current Visit: Yes Qualifiers: Osteomyelitis type: chronic, with draining sinus Qualified Code(s): M86.472 - Chronic osteomyelitis with draining sinus, left ankle and foot Code(s): M86.9 - Osteomyelitis, unspecified (2) Chronic ulcer of left foot with fat layer exposed Status: Chronic Current Visit: Yes Code(s): L97.522 - Non-pressure chronic ulcer of other part of left foot with fat layer exposed (3) Tobacco abuse Status: Acute Current Visit: Yes Code(s): Z72.0 - Tobacco use (4) Colonization status Status: Acute Current Visit: Yes Code(s): Z22.9 - Carrier of infectious disease, unspecified (5) Type 2 diabetes mellitus with diabetic polyneuropathy Status: Chronic Current Visit: Yes Qualifiers: Code(s): E11.42 - Type 2 diabetes mellitus with diabetic polyneuropathy (6) Diabetic ulcer of left foot Status: Chronic Current Visit: Yes Qualifiers: Diabetic foot ulcer location: midfoot Diabetes mellitus type: type 2 Code(s): E11.621 - Type 2 diabetes mellitus with foot ulcer; L97.529 - Non- pressure chronic ulcer of other part of left foot with unspecified severity (7) Other specified peripheral vascular diseases Status: Chronic Current Visit: Yes Code(s): I73.89 - Other specified peripheral vascular diseases (8) Delayed wound healing Status: Acute Current Visit: Yes Code(s): T14.8XXD - Other injury of unspecified body region, subsequent encounter Type of Wound Date of Service: 02/16/20 Chief Complaint: Right and left foot ulcers History of Wound: This 64-year-old male with multiple comorbidities was seen today for bilateral foot ulcers. His right foot ulcer onset was November 16, 2019. He denies drainage and thinks that this ulcer site may have healed. His left foot ulcer onset was 12-07-2019. He is previously known to me and had a lef t transmetatarsal amputation performed last year for treatment of limb threatening infection. That has since been healed. He has been changing the dressing daily with hydrogel and offloads with a cam walker boot and surgical shoes. He denies fever, chill, nausea, vomiting. He denies odor or redness. He has been washing with the antimicrobial soap as advised. He saw vascular surgery reports that he has some additional procedure scheduled. He is trying to use a knee roller to further offload his ulcer site. Continues to take ciprofloxacin and Augmentin for treatment of chronic osteomyelitis and is under the management of infectious disease. He denies diarrhea or other side effects from the medication. Progress of Wound: Left stable - Physical Exam Vital Signs Temp Pulse Resp BP 99.2 F H 102 H 22 H 149/60 H 02/16/20 13:36 02/16/20 13:36 02/16/20 13:36 02/16/20 13:36 General: Alert, Oriented x3, Cooperative, No apparent distress HEENT: Atraumatic Extremities: No cyanosis, Capillary Refill Less than 3 Seconds, No Calf Tende rness - Negative Ernie and Rangel left, Diminished Peripheral Pulses, Edema - Mild left, - - Transmetatarsal amputation left. Compartment soft left lower extremity. No bogginess or fluctuance on palpation Skin: Ulcer/ Wound - No purulence, erythema, streaking, odor, infection bilateral. The prior right foot ulcer site remains healed with full epithelialization to the sub-fifth metatarsal head. Left foot ulcer has a granular base with continued deeper probing but not directly to bone under the plantar medial aspect of the transmetatarsal amputation stump site region. There is continued peripheral callus formation now with a skin discontinuity slit at the 1:00 location. Wound Measurements and Assessment WC - Nurse 1 - General Ulcer Measurement Start: 01/26/20 09:27 Freq: Status: Active Protocol: Activity Type Activity Date Activity User E-Sign Co-Sign Detail Recorded Client Recorded Date Recorded By Document 02/16/20 13:36 DL [id number] 02/16/20 13:42 DL 02/16/20 13:36 Wound Center Nurse 1 [Ulcer Assessment] #1 Left Plantar medial -Current Size (cm) - Length 2.4 -Current Size (cm) - Width 1.5 -Current Size (cm) - Depth 0.5 -Total Square Cm 3.60 -Photo Taken No -Exudate Amt Small -Exudate Type Serosanguineous -Wound Margin Thickened -Granulation Amt Medium (34-66%) -Granulation Quality [place] -Necrosis Amt Small (1-33%) -Structure Exposed N/A -Texture (Maria M-wound Skin Appearance) Callus -Moisture (Maria M-wound Skin Appearance Dry/Scaly ) -Color (Maria M-wound Skin Appearance) Hemosiderin Staining -Temperature (Maria M-wound Skin No Abnormality Appearance) (Pt Warm) -Tenderness on Palpation (Maria M-wound No Skin Appearance) -Ulcer Cleansing Rinsed/ Irrigated with Saline -Foul Odor after Cleansing No -Anesthetic Used 4% Lidocaine Solution [Edema Assessment] -Left Calf (cm) 44 -Left Ankle (cm) 26 - Nurse 2 - General Ulcer CM Notes Start: 01/26/20 09:27 Freq: Status: Active Protocol: Activity Type Activity Date Activity User E-Sign Co-Sign Detail Recorded Client Recorded Date Recorded By Document 02/16/20 14:13 [id number] 02/16/20 14:15 02/16/20 14:13 Wound Center Nurse 2 [Procedure/Treatment] #1 Left Plantar medial -Time 14:14 -Correct Patient Yes -Correct Side, Site, Position Yes -Correct Procedure Yes -Procedure Performed Yes -Type of Procedure Debridement -Clinical Debridement Subcutaneous -Post Debridement Size (cm) - Length 4.7 -Post Debridement Size (cm) - Width 1.5 -Post Debridement Size (cm) - Depth 0.3 -Total Square Cm 7.05 -Wound/Ulcer Outcome Not Healed -Ulcer Cleansing Rinsed/ Irrigated with Saline -Foul Odor after Cleansing No -Bioengineered Tissue No -Bleeding Controlled with Pressure -Offloading Yes -Type of Offloading Surgical Shoe -Treatment Response Procedure Tolerated Well [See Physician Procedure note for Specifics] Pain Scale: 0-10 Numeric [Pain] -Is Patient Pain Free? Yes Musculoskeletal: No Tenderness to Palpation of Joints or Extremities, Muscle Wasting Neurological: - - Lack of normal epicritic sensation light touch consistent with neuropathy status Psych/Mental Status: Normal Affect, Appropriate Debridement Note Post-Debridement Measurements/Treatment - Nurse 2 - General Ulcer CM Notes Start: 01/26/20 09:27 Freq: Status: Active Protocol: Activity Type Activity Date Activity User E-Sign Co-Sign Detail Recorded Client Recorded Date Recorded By Document 01/26/20 13:31 JF [id number] 01/26/20 13:35 Document 02/02/20 14:21 [id number] 02/02/20 14:26 Document 02/09/20 14:31 [id number] 02/09/20 14:35 JF Document 02/16/20 14:13 [id number] 02/16/20 14:15 JF 01/26/20 02/02/20 02/09/20 13:31 14:21 14:31 Wound Center Nurse 2 #2 right 5th metatarsal -Time 13:31 14:21 -Correct Patient Yes Yes No -Correct Side, Site, Position Yes Yes No -Correct Procedure Yes Yes No -Procedure Performed Yes Yes No -Type of Procedure Debridement Debridement -Clinical Debridement Subcutaneous Subcutaneous -Post Debridement Size (cm) - Length 0.4 0.3 0 -Post Debridement Size (cm) - Width 0.2 0.5 0 -Post Debridement Size (cm) - Depth 0.2 0.1 0 -Total Square Cm 0.08 0.15 0 -Wound/Ulcer Outcome Not Healed Not Healed Healed- Epithelialized -Ulcer Cleansing Rinsed/ Rinsed/ Irrigated with Irrigated with Saline Saline -Foul Odor after Cleansing No No -Bioengineered Tissue No No -Bleeding Controlled with Pressure Pressure -Offloading Yes Yes -Type of Offloading Camwalker Surgical Shoe -Treatment Response Procedure Procedure Tolerated Well Tolerated Well #1 Left Plantar medial -Time 13: 14:21 14:32 -Correct Patient Yes Yes Yes -Correct Side, Site, Position Yes Yes Yes -Correct Procedure Yes Yes Yes -Procedure Performed Yes Yes Yes -Type of Procedure Debridement Debridement Debridement -Clinical Debridement Subcutaneous Subcutaneous Subcutaneous -Post Debridement Size (cm) - Length 1.8 1.5 1.6 -Post Debridement Size (cm) - Width 1.8 1.5 1.6 -Post Debridement Size (cm) - Depth 0.4 0.4 0.3 -Total Square Cm 3.24 2.25 2.56 -Wound/Ulcer Outcome Not Healed Not Healed -Ulcer Cleansing Rinsed/ Rinsed/ Rinsed/ Irrigated with Irrigated with Irrigated with Saline Saline Saline -Foul Odor after Cleansing No No No -Bioengineered Tissue No No No -Bleeding Controlled with Pressure Pressure Pressure -Offloading Yes Yes Yes -Type of Offloading Camwalker Camwalker Camwalker -Treatment Response Procedure Procedure Procedure Tolerated Well Tolerated Well Tolerated Well Pain Scale: 0-10 Numeric Is Patient Pain Free? Yes Yes Yes 02/16/20 14:13 Wound Center Nurse 2 #2 right 5th metatarsal -Time -Correct Patient -Correct Side, Site, Position -Correct Procedure -Procedure Performed -Type of Procedure -Clinical Debridement -Post Debridement Size (cm) - Length -Post Debridement Size (cm) - Width -Post Debridement Size (cm) - Depth -Total Square Cm -Wound/Ulcer Outcome -Ulcer Cleansing -Foul Odor after Cleansing -Bioengineered Tissue -Bleeding Controlled with -Offloading -Type of Offloading -Treatment Response #1 Left Plantar medial -Time 14:14 -Correct Patient Yes -Correct Side, Site, Position Yes -Correct Procedure Yes -Procedure Performed Yes -Type of Procedure Debridement -Clinical Debridement Subcutaneous -Post Debridement Size (cm) - Length 4.7 -Post Debridement Size (cm) - Width 1.5 -Post Debridement Size (cm) - Depth 0.3 -Total Square Cm 7.05 -Wound/Ulcer Outcome Not Healed -Ulcer Cleansing Rinsed/ Irrigated with Saline -Foul Odor after Cleansing No -Bioengineered Tissue No -Bleeding Controlled with Pressure -Offloading Yes -Type of Offloading Surgical Shoe -Treatment Response Procedure Tolerated Well Pain Scale: 0-10 Numeric Is Patient Pain Free? Yes Wound debrided: plantar medial foot Laterality: Left Wound Grade/Stage: grade 3 Type of Debridement: Excisional debridement Anesthesia Used: 5% Lidocaine Gel Depth: in the subcutaneous layer Percentage of wound debrided: 100 Instrument Used: #15 blade Tissue Removed: fibrous, devitalized subcutaneous, biofilm, slough Severity: Fat Layer Exposed Amount of bleeding with debridement: Mild Bleeding Controlled with: Pressure Patient tolerated procedure well Assessment/Plan Active Problems (Last Reviewed 01/17/20 @ 13:[address] Juan Arteaga MD) Tobacco abuse (Acute) Colonization status (Acute) Chronic ulcer of left foot with fat layer exposed (Chronic) Osteomyelitis of left foot (Chronic) Diabetic ulcer of left foot (Chronic) Other specified peripheral vascular diseases (Chronic) Delayed wound healing (Acute) Type 2 diabetes mellitus with diabetic polyneuropathy (Chronic) Assessment: Right sub-fifth metatarsal head ulcer remains healed. Left plantar medial foot ulcer, grade 3. Chronic osteomyelitis left foot is treated medically at this time. Left transmetatarsal amputation. Diabetes with neuropathy that is uncontrolled. Obesity. Malnutrition suspected Plan: I reviewed and discussed his case. Subcutaneous excisional debridement was performed as noted in the clinical panel to the left foot. His right foot ulcer site has remained healed and he was reassured there are no signs of infection. To change dressing daily with hydrogel to the left foot. I would like to consider advanced wound healing product application, epi-fix, and this will be considered after the quality of the left foot tissue has improved. Wendi lin authorization has been initiated and he is not ready to proceed with this at this time due to his initial [id number] expenses. This was discussed again today and encouraged. Keep strict weight off of the sites of the left cam walker boot. He was encouraged to utilize the roller. Previous dual density Plastizote liners have been added to relieve the sites at further pressure. His noninvasive vascular studies were reviewed from which were normal and intervention was previously not recommended. I advised him to follow-up with all of Dr. Bonilla's recommendations to optimize his healing process. He has recently been seen and intervention is planned for arterial optimization. An updated bilateral duplex was also recommended to help with planning. I recommend an updated left foot x-ray due to the increased depth of 0.7 cm at a recent prior visit. This was performed at the [facility] center in 01-17-2020. The right foot does not have any fractures, dislocation, foreign body, osseous destruction, soft tissue emphysema. The left foot does not have any fracture, dislocation, foreign body, alfred osseous destruction, soft tissue emphysema either however there is a subtle area of radiolucency to the first metatarsal. Given his deeper ulcer status there is a concern of osteomyelitis progression and now exposed capsule tissue in combination with his overall delay ing healing even though he has been on oral antibiotics for medical treatment of chronic osteomyelitis. His hemoglobin A1c was 13 in 2019 I would like to get this updated. An order was provided. His elevated glucose levels are significantly impairing his healing and I recommend he follows up with a numerical control tool programmer to better control his diet. A referral was thank you exceedingly provided, and he has attended. He is currently making adjustments with his eating habits. His other labs were reviewed including CBC and CMP. WBC of 12.4 is noted. ESR was updated at 54 and C-reactive protein was 14.3. Smoking cessation was discussed in detail and he was advised on the healing impairment associated with this. To continue with his smoking cessation program. I also recommend discontinuation of nicotine products for this also contributes to small vessel contraction. His cultures are reviewed previously, and multi- organism growth including Klebsiella oxytoca, strep viridans, corynebacterium striatum, Enterococcus faecalis. He has continued with daily cleansing with antimicrobial soap. I recommend an antibiotic at this time and a prescription for Augmentin and ciprofloxacin was provided. I also recommend infectious disease referral for work-up of osteomyelitis due to his subtle x-ray findings and progressive ulcer deterioration in the left foot there is a concern of chronic osteomyelitis. He was seen by Dr. Pathak, infectious disease specialist, and a 6-week course will be planned for treatment of osteomyelitis. To complete this course. Input from infectious diseases greatly appreciated. This patient is also a candidate for hyperbaric oxygen therapy and this was discussed at length today. Orders were provided for pre-hyperbaric oxygen therapy session screening including EKG and chest x-ray. Upon review if these are normal I will refer him for a history and physical and clearance session with an additional wound care center provider. The indication, benefits, risk, complications, anticipated healing time management with his adjunctive advanced hyperbaric oxygen therapy was discussed. He understands the requirements including daily sessions and complete smoking cessation. Compliance is imperative during this time. He like to proceed at this time. He denies acute cardiac or respiratory ailments, hearing difficulties, or claustrophobia. Educational video on this topic was also reviewed today. He was advised to return to the wound healing center in 1 week or call sooner if he has any questions or concerns. I answered all of his questions today.
--- NOTE | 2020-02-16 20:00 | PN.ID_ITS ---
Patient Problems: Active and Suspected Problems (Last Reviewed 01/17/20 @ 13:[address] Juan Arteaga MD) Tobacco abuse (Acute) Colonization status (Acute) Delayed wound healing (Acute) Subjective: Feeling better, foot improving. No fever, no n/v/d with po abx. - Physical Exam Vitals/I&O's: Vital Signs Temp Pulse Resp BP 99.2 F H 102 H 22 H 149/60 H 02/16/20 13:36 02/16/20 13:36 02/16/20 13:36 02/16/20 13:36 Oxygen Delivery Method Room Air Weight: 149.685 kg Body Mass Index (BMI) 43.5 Finger Stick Blood Glucose 137 General: Alert, Cooperative, No apparent distress Lungs: Clear to auscultation, Normal air movement Cardiovascular: Regular rate, Regular Rhythm Abdomen: Soft, Non Tender, Non-Distended Skin: Ulcer/ Wound - L foot, less red and swollen Medical Necessity - Tobacco Use Smoking Status: Current every day smoker Route of nutrition/ use of supplements: [] Nutritional Intake: [] IV Site: [] Dyer Catheter: [] - Assessment/Plan Antibiotics: [] Assessment/Plan: [] Active and Suspected Problems (Last Reviewed 01/17/20 @ 13:[address] Juan Arteaga MD) Tobacco abuse (Acute) Colonization status (Acute) Osteomyelitis of left foot (Suspected) Suspected L foot osteo which is s/p prior TMA. Improving on cipro/augmentin, will complete a full 6 weeks. Wound cx with klebs, strep viridans, enter ococcus, and corynebacteria. Reviewed recent labs. Return to clinic as needed
--- NOTE | 2020-02-18 14:35 | RAD_ITS ---
HISTORY: pre hyperbariatric some sob per patient EXAM: XR Chest 2 Views: COMPARISON: May 10, 2019 FINDINGS: # of images incl. paperwork: 2 Fibrotic lung disease persists No focal airspace disease is perceived. Calcific plaque within the aortic arch is similar Heart is not enlarged. No acute osseous pathology perceived. Pulmonary vascularity is distinct. No effusions. RAD/Chest PA and Lateral IMPRESSION: No acute disease perceived. at 0454 Reported and signed by: Alexis Flynn MD Electronically Signed: Alexis Flynn MD at 4:53 EDT Tel , Service support ,
--- NOTE | 2020-02-18 14:37 | EKG12_ITS ---
Test Reason : O2 THERAPY Blood Pressure : / mmHG Vent. Rate : 096 BPM Atrial Rate : 096 BPM P-R Int : 174 ms QRS Dur : 110 ms QT Int : 352 ms P-R-T Axes : 049 064 064 degrees QTc Int : 444 ms Normal sinus rhythm Normal ECG Confirmed by RYDER PARNELL ([id number]), senior editor TANI ROSARIO ([id number] on 02/21/2020 11:12:26 AM Referred By: Irene Claudio Confirmed By:RYDER PARNELL
[2020-02-18 16:45] LABS: Hemoglobin A1c 10.5 % (3.8-5.6)
== END 2020-02-20 23:59 ==
LOC: WC 14:32
PROVIDERS: PCP Family Medicine Geriatric Medicine; Referring Provider Podiatrist; Visit Provider Podiatrist
DX: E11.621 Type 2 diabetes mellitus with foot ulcer (principal); E11.42 Type 2 diabetes mellitus with diabetic polyneuropathy; L97.512 Non-pressure chronic ulcer of other part of right foot with fat layer exposed; L97.522 Non-pressure chronic ulcer of other part of left foot with fat layer exposed; E11.69 Type 2 diabetes mellitus with other specified complication; M86.672 Other chronic osteomyelitis, left ankle and foot; E11.65 Type 2 diabetes mellitus with hyperglycemia; E66.9 Obesity, unspecified; Z68.41 Body mass index [BMI] 40.0-44.9, adult; F17.200 Nicotine dependence, unspecified, uncomplicated; E11.51 Type 2 diabetes mellitus with diabetic peripheral angiopathy without gangrene
CPT/HCPCS: 11042; 36415; 71046; 83036; 93005

== ENCOUNTER 2020-03-01 13:29 | Outpatient (RCR) | payer MEDICARE, SELFPAY ==
[2020-02-16 13:36] VITALS: BMI 43.5
== END 2020-03-21 23:59 ==
LOC: DC 13:29
PROVIDERS: PCP Family Medicine Geriatric Medicine; Visit Provider Podiatrist
DX: Z71.3 Dietary counseling and surveillance (principal); E66.9 Obesity, unspecified; Z68.41 Body mass index [BMI] 40.0-44.9, adult; E11.42 Type 2 diabetes mellitus with diabetic polyneuropathy
CPT/HCPCS: 11042; G0108

== ENCOUNTER 2020-03-21 09:30 | Outpatient (RCR) | payer MEDICARE, MEDICAID, SELFPAY ==
[2020-02-16 13:36] VITALS: BMI 43.5
[2020-02-21 00:30] VITALS: BP 149/60; PULSE 102; RESP 22; TEMP 37.3
[2020-02-23 13:45] VITALS: BP 180/79; PULSE 95; RESP 18; TEMP 36.6; BMI 43.5
--- NOTE | 2020-02-23 14:46 | PN.PCM_ITS ---
(1) Chronic ulcer of left foot with fat layer exposed Status: Chronic Code(s): L97.522 - Non-pressure chronic ulcer of other part of left foot with fat layer exposed (2) Tobacco abuse Status: Acute Code(s): Z72.0 - Tobacco use (3) Colonization status Status: Acute Code(s): Z22.9 - Carrier of infectious disease, unspecified (4) Osteomyelitis of left foot Status: Chronic Qualifiers: Code(s): M86.9 - Osteomyelitis, unspecified (5) Type 2 diabetes mellitus with diabetic polyneuropathy Status: Chronic Qualifiers: Code(s): E11.42 - Type 2 diabetes mellitus with diabetic polyneuropathy (6) Difficulty in walking, not elsewhere classified Status: Acute Code(s): R26.2 - Difficulty in walking, not elsewhere classified Type of Wound Date of Service: 02/23/20 Chief Complaint: left foot ulcers History of Wound: This 64-year-old male with multiple comorbidities was seen today for left foot ulcer. His left foot ulcer onset was 12-07-2019. He is previously known to me and had a left transmetatarsal amputation performed last year for treatment of limb threatening infection. That has since been healed. He has been changing the dressing daily with hydrogel and offloads with a cam walker boot and surgical shoes. He denies fever, chill, nausea, vomiting. He denies odor or redness. He has been washing with the antimicrobial soap as advised. He saw vascular surgery reports that he has some additional procedure scheduled. He is trying to use a knee roller to further offload his ulcer site. Continues to take ciprofloxacin and Augmentin for treatment of chronic osteomyelitis and is under the management of infectious disease. He denies diarrhea or other side effects from the medication. He is amendable to proceed with hyperbaric oxygen and went for some screening test. He would like to review the results today. Progress of Wound: Left stable - Physical Exam Vital Signs Temp Pulse Resp BP 97.8 F 95 18 180/79 H 02/23/20 13:45 02/23/20 13:45 02/23/20 13:45 02/23/20 13:45 General: Alert, Oriented x3, Cooperative, No apparent distress HEENT: Atraumatic Extremities: No cyanosis, Capillary Refill Less than 3 Seconds, No Calf Tenderness, Diminished Peripheral Pulses, Edema Skin: Ulcer/ Wound - No purulence, erythema, streaking, odor, infection. There is still deep probing to the skin plantar ulcer site. There is no bogginess or fluctuance on palpation. The adjacent skin is hairless and atrophic on the left foot Wound Measurements and Assessment WC - Nurse 1 - General Ulcer Measurement Start: 02/23/20 13:45 Freq: Status: Active Protocol: Activity Type Activity Date Activity User E-Sign Co-Sign Detail Recorded Client Recorded Date Recorded By Document 02/23/20 13:45 RB [id number] 02/23/20 13:48 RB 02/23/20 13:45 Wound Center Nurse 1 [Ulcer Assessment] #1 Left Plantar medial -Combined with other wound No -Current Size (cm) - Length 2 -Current Size (cm) - Width 1.6 -Current Size (cm) - Depth 0.4 -Total Square Cm 3.2 -Tunneling No -Undermining/Tunneling No -Circular Undermining No -Exudate Amt Small -Exudate Type Serosanguineous -Wound Margin Fibrotic Scar, Thickened Scar -Granulation Amt Medium (34-66%) -Granulation Quality [place] -Slough/Fibrin Yes -Necrosis Amt Small (1-33%) -Necrotic Tissue Type Adherent Slough -Structure Exposed N/A -Texture (Maria M-wound Skin Appearance) Assessed,Callus -Moisture (Maria M-wound Skin Appearance Assessed ) -Color (Maria M-wound Skin Appearance) Assessed -Temperature (Maria M-wound Skin No Abnormality Appearance) (Pt Warm) -Tenderness on Palpation (Maria M-wound No Skin Appearance) -Ulcer Cleansing Wound Cleanser -Foul Odor after Cleansing No -Anesthetic Used 4% Lidocaine Solution [Edema Assessment] -Lower Limb Edema Present Yes -Right Calf (cm) 45 -Right Ankle (cm) 27.5 -Left Calf (cm) 45.5 -Left Ankle (cm) 29 Musculoskeletal: No Tenderness to Palpation of Joints or Extremities, Muscle Wasting, - - Transmetatarsal amputation Neurological: - - Lack of normal epicritic sensation light touch is consistent with neuropathy status Psych/Mental Status: Normal Affect, Appropriate Debridement Note Wound debrided: plantar medial foot Laterality: Left Wound Grade/Stage: grade 3 Type of Debridement: Excisional debridement Anesthesia Used: 5% Lidocaine Gel Depth: in the subcutaneous layer Percentage of wound debrided: 100 Instrument Used: #15 blade Tissue Removed: fibrous, devitalized subcutaneous, biofilm, slough Severity: Fat Layer Exposed Amount of bleeding with debridement: Mild Bleeding Controlled with: Pressure Patient tolerated procedure well Assessment/Plan Assessment: Right sub-fifth metatarsal head ulcer remains healed. Left plantar medial foot ulcer, grade 3. Chronic osteomyelitis left foot is treated medically at this time. Left transmetatarsal amputation. Diabetes with neuropathy that is uncontrolled. Obesity. Malnutrition suspected Plan: I reviewed and discussed his case. Subcutaneous excisional debridement was performed as noted in the clinical panel to the left foot. His right foot ulcer site has remained healed and he was reassured there are no signs of infection. To change dressing daily with hydrogel to the left foot. I would like to consider advanced wound healing product application, epi-fix, and this will be considered after the quality of the left foot tissue has improved. Prior authorization has been initiated and he is not ready to proceed with this at this time due to his initial [id number] expenses. This was discussed again today and encouraged. Keep strict weight off of the sites of the left cam walker boot. He was encouraged to utilize the roller. Previous dual density Plastizote liners have been added to relieve the sites at further pressure. His noninvasive vascular studies were reviewed from which were normal and intervention was previously not recommended. I advised him to follow-up with all of Dr. Bonilla's recommendations to optimize his healing process. He has recently been seen and intervention is planned for arterial optimization. An updated bilateral duplex was also recommended to help with planning. I recommend an updated left foot x-ray due to the increased depth of 0.7 cm at a recent prior visit. This was performed at the foot [facility] ankle center in 01-17-2020. The right foot does not have any fractures, dislocation, foreign body, osseous destruction, soft tissue emphysema. The left foot does not have any fracture, dislocation, foreign body, alfred osseous destruction, soft tissue emphysema either however there is a subtle area of radiolucency to the first metatarsal. Given his deeper ulcer status there is a concern of osteomyelitis progression and now exposed capsule tissue in combination with his overall delaying healing even though he has been on oral antibiotics for medical treatment of chronic osteomyelitis. His hemoglobin A1c was 13 in 2019 I would like to get this updated. An order was provided. His elevated glucose levels are significantly impairing his healing and I recommend he follows up with a maintenance team member to better control his diet. To continue to follow-up as advised. He is currently making adjustments with his eating habits. His other labs were reviewed including CBC and CMP. WBC of 12.4 is noted. ESR was updated at 54 and C-reactive protein was 14.3. Smoking cessation was discussed in detail and he was advised on the healing impairment associated with this. To continue with his smoking cessation program. I also recommend discontinuation of nicotine products for this also contributes to small vessel contraction. His cultures are reviewed previously, and multi-organism growth including Klebsiella oxytoca, strep viridans, corynebacterium striatum, Enterococcus faecalis. He has continued with daily cleansing with antimicrobial soap. I recommend an antibiotic at this time and a prescription for Augmentin and ciprofloxacin was provided. I also recommend infectious disease referral for work-up of osteomyelitis due to his subtle x-ray findings and progressive ulcer deterioration in the left foot there is a concern of chronic osteomyelitis. He was seen by Dr. Pathak, infectious disease specialist, and a 6-week course will be planned for treatment of osteomyelitis. To complete this course. Input from infectious diseases greatly appreciated. This patient is also a candidate for hyperbaric oxygen therapy and this was discussed at length today. Orders were provided for pre-hyperbaric oxygen therapy session screening including EKG and chest x-ray. These were without abnormalities. At this time, I will refer him for a history and physical and clearance session with an additional wound care center provider. The indication, benefits, risk, complications, anticipat ed healing time management with his adjunctive advanced hyperbaric oxygen therapy was discussed. He understands the requirements including daily sessions and complete smoking cessation. Compliance is imperative during this time. He like to proceed at this time. He denies acute cardiac or respiratory ailments, hearing difficulties, or claustrophobia. Educational video on this topic was also reviewed previously. He was advised to return to the wound healing center in 1 week or call sooner if he has any questions or concerns. I answered all of his questions today.
[2020-03-01 13:36] VITALS: BP 122/70; PULSE 91; RESP 18; TEMP 36.5; BMI 43.5
--- NOTE | 2020-03-01 20:24 | PN.PCM_ITS ---
(1) Chronic ulcer of left foot with necrosis of muscle Status: Chronic Current Visit: Yes Code(s): L97.523 - Non-pressure chronic ulcer of other part of left foot with necrosis of muscle (2) Tobacco abuse Status: Acute Current Visit: Yes Code(s): Z72.0 - Tobacco use (3) Colonization status Status: Acute Current Visit: Yes Code(s): Z22.9 - Carrier of infectious disease, unspecified (4) Osteomyelitis of left foot Status: Chronic Current Visit: Yes Qualifiers: Code(s): M86.9 - Osteomyelitis, unspecified (5) Type 2 diabetes mellitus with diabetic polyneuropathy Status: Chronic Current Visit: Yes Qualifiers: Code(s): E11.42 - Type 2 diabetes mellitus with diabetic polyneuropathy (6) Difficulty in walking, not elsewhere classified Status: Acute Current Visit: Yes Code(s): R26.2 - Difficulty in walking, not elsewhere classified Type of Wound Date of Service: 03/01/20 Chief Complaint: left foot ulcers History of Wound: This 64-year-old male with multiple comorbidities was seen today for left foot ulcer. His left foot ulcer onset was 12-07-2019. He is previously known to me and had a left transmetatarsal amputation performed last year for treatment of limb threatening infection. That has since been healed. He has been changing the dressing daily with hydrogel and offloads with a cam walker boot and surgical shoes. He denies fever, chill, nausea, vomiting. He denies odor or redness. He has been washing with the antimicrobial soap as advised. He saw vascular surgery reports that he has some additional procedure scheduled. He is trying to use a knee roller to further offload his ulcer site. Continues to take ciprofloxacin and Augmentin for treatment of chronic osteomyelitis and is under the management of infectious disease. He has had progressive exposure of capsular tissue with intermittent infections consistent with a correct during grade 3 ulcer. He is considering hyperbaric oxygen therapy as recommended. He denies diarrhea or other side effects from the medication. Progress of Wound: Left stable - Physical Exam Vital Signs Temp Pulse Resp BP 97.7 F L 91 18 122/70 H 03/01/20 13:36 03/01/20 13:36 03/01/20 13:36 03/01/20 13:36 General: Alert, Oriented x3, Cooperative, No apparent distress HEENT: Atraumatic Extremities: No cyanosis, Capillary Refill Less than 3 Seconds, No Calf Tenderness, Diminished Peripheral Pulses, Edema, - - Transmetatarsal amputation left Skin: Ulcer/ Wound - No purulence, erythema, streaking or odor. There is continued deep probing to the plantar medial ulcer on the left foot with exposed deep muscular tissue. This corresponds with the location of radiolucency on the adjacent first metatarsal that is remaining. Consistent with a Emili grade 3 and osteomyelitis Wound Measurements and Assessment WC - Nurse 1 - General Ulcer Measurement Start: 02/23/20 13:45 Freq: Status: Active Protocol: Activity Type Activity Date Activity User E-Sign Co-Sign Detail Recorded Client Recorded Date Recorded By Document 03/01/20 13:36 DV [id number] 03/01/20 13:50 DV 03/01/20 13:36 Wound Center Nurse 1 [Ulcer Assessment] #1 Left Plantar medial -Combined with other wound No -Current Size (cm) - Length 1.7 -Current Size (cm) - Width 1.5 -Current Size (cm) - Depth 0.7 -Total Square Cm 2.55 -Photo Taken No -Epithelialization None Present -Tunneling No -Undermining/Tunneling No -Circular Undermining No -Classification - Thickness Full Thickness without Exposed Support Structure -Exudate Amt Medium -Exudate Type Serosanguineous -Wound Margin Fibrotic Scar, Thickened Scar -Granulation Amt Small (1-33%) -Granulation Quality [place] -Slough/Fibrin Yes -Necrosis Amt Large (67-100%) -Necrotic Tissue Type Adherent Slough -Structure Exposed None/Limited to Skin Breakdown -Texture (Maria M-wound Skin Appearance) Assessed, Localized Edema ,Scarring -Moisture (Maria M-wound Skin Appearance Assessed, ) Weeping,Dry/ Scaly -Color (Maria M-wound Skin Appearance) No Abnormality, Assessed -Temperature (Maria M-wound Skin No Abnormality Appearance) (Pt Warm) -Tenderness on Palpation (Maria M-wound No Skin Appearance) -Ulcer Cleansing Rinsed/ Irrigated with Saline -Foul Odor after Cleansing No -Anesthetic Used 5% Lidocaine Gel [Edema Assessment] -Right Calf (cm) 47.7 -Point of measurement (cm from the 31.0 medial instep) -Right Ankle (cm) 27.0 -Point of Measurement (cm from the 12.5 medial instep) -Left Calf (cm) 47.5 -Point of measurement (cm from the 32.5 medial instep) -Left Ankle (cm) 27.0 -Point of Measurement (cm from the 13.0 medial instep) - Nurse 2 - General Ulcer CM Notes Start: 02/23/20 13:45 Freq: Status: Active Protocol: Activity Type Activity Date Activity User E-Sign Co-Sign Detail Recorded Client Recorded Date Recorded By Document 03/01/20 14:03 [id number] 03/01/20 14:06 03/01/20 14:03 Wound Center Nurse 2 [Procedure/Treatment] #1 Left Plantar medial -Time 14:04 -Correct Patient Yes -Correct Side, Site, Position Yes -Correct Procedure Yes -Procedure Performed Yes -Type of Procedure Debridement -Clinical Debridement Subcutaneous -Post Debridement Size (cm) - Length 1.8 -Post Debridement Size (cm) - Width 1.5 -Post Debridement Size (cm) - Depth 0.7 -Total Square Cm 2.70 -Wound/Ulcer Outcome Not Healed -Ulcer Cleansing Rinsed/ Irrigated with Saline -Foul Odor after Cleansing No -Bioengineered Tissue No -Bleeding Controlled with Pressure -Offloading Yes -Type of Offloading Camwalker -Treatment Response Procedure Tolerated Well [See Physician Procedure note for Specifics] Pain Scale: 0-10 Numeric [Pain] -Is Patient Pain Free? Yes Musculoskeletal: No Tenderness to Palpation of Joints or Extremities, Muscle Wasting Neurological: - - Lack of epicritic sensation light touch is consistent with neuropathy status Psych/Mental Status: Normal Affect, Appropriate Debridement Note Post-Debridement Measurements/Treatment - Nurse 2 - General Ulcer CM Notes Start: 02/23/20 13:45 Freq: Status: Active Protocol: Activity Type Activity Date Activity User E-Sign Co-Sign Detail Recorded Client Recorded Date Recorded By Document 02/23/20 18:54 PL [id number] 02/23/20 18:55 PL Document 03/01/20 14:03 [id number] 03/01/20 14:06 02/23/20 03/01/20 18:54 14:03 Wound Center Nurse 2 #1 Left Plantar medial -Time 14:27 14:04 -Correct Patient Yes Yes -Correct Side, Site, Position Yes Yes -Correct Procedure Yes Yes -Procedure Performed Yes Yes -Type of Procedure Debridement Debridement -Clinical Debridement Subcutaneous Subcutaneous -Post Debridement Size (cm) - Length 2.1 1.8 -Post Debridement Size (cm) - Width 1.7 1.5 -Post Debridement Size (cm) - Depth 0.5 0.7 -Total Square Cm 3.57 2.70 -Wound/Ulcer Outcome Not Healed Not Healed -Ulcer Cleansing Rinsed/ Rinsed/ Irrigated with Irrigated with Saline Saline -Foul Odor after Cleansing No No -Bioengineered Tissue No -Bleeding Controlled with Pressure Pressure -Offloading Yes -Type of Offloading Camwalker -Treatment Response Procedure Procedure Tolerated Well Tolerated Well Pain Scale: 0-10 Numeric Is Patient Pain Free? Yes Yes Wound debrided: plantar medial foot Laterality: Left Wound Grade/Stage: grade 3 Type of Debridement: Excisional debridement Anesthesia Used: 5% Lidocaine Gel Depth: in the subcutaneous layer Percentage of wound debrided: 100 Instrument Used: #15 blade Tissue Removed: fibrous, devitalized subcutaneous, biofilm, slough Severity: Fat Layer Exposed Amount of bleeding with debridement: Mild Bleeding Controlled with: Pressure Patient tolerated procedure well Assessment/Plan Active Problems (Last Reviewed 01/17/20 @ 13:[address] Juan Arteaga MD) Tobacco abuse (Acute) Colonization status (Acute) Chronic ulcer of left foot with fat layer exposed (Chronic) Osteomyelitis of left foot (Chronic) Difficulty in walking, not elsewhere classified (Acute) 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) Type 2 diabetes mellitus with diabetic polyneuropathy (Chronic) Assessment: Right sub-fifth metatarsal head ulcer remains healed. Left plantar medial foot ulcer, grade 3. Chronic osteomyelitis left foot is treated medically at this time. Left transmetatarsal amputation. Diabetes with neuropathy that is uncontrolled. Obesity. Malnutrition suspected Plan: I reviewed and discussed his case. Subcutaneous excisional debridement was performed as noted in the clinical panel to the left foot. To change dressing daily with hydrogel to the left foot. I would like to consider advanced wound healing product application, epi-fix, and this will be considered after the quality of the left foot tissue has improved. Prior authorization has been initiated and he is not ready to proceed with this at this time due to his initial [id number] expenses. Keep strict weight off of the sites of the left cam walker boot. He was encouraged to utilize the knee roller. Previous dual density Plastizote liners have been added to relieve the sites at further pressure. His noninvasive vascular studies were reviewed from which were normal and intervention was previously not recommended. I advised him to follow-up with all of Dr. Bonilla's recommendations to optimize his healing process. He has recently been seen and intervention is planned for arterial optimization. An updated bilateral duplex was also recommended to help with planning. I recommend an updated left foot x-ray due to the increased depth of 0.7 cm at a recent prior visit. This was performed at the foot and ankle center in 01-17-2020. The right foot does not have any fractures, dislocation, foreign body, osseous destruction, soft tissue emphysema. The left foot does not have any fracture, dislocation, foreign body, alfred osseous destruction, soft tissue emphysema either however there is a subtle area of radiolucency to the first metatarsal. Given his deeper ulcer status there is a concern of osteomyelitis and muscular infection involvement with progression and now exposed muscle tissue in combination with his overall delaying healing even though he has been on oral antibiotics for medical treatment of chronic osteomyelitis. His hemoglobin A1c was 13 in 2019 I would like to get this updated. An order was provided. His elevated glucose levels are significantly impairing his healing and I recommend he follows up with a technician helper instrument to better control his diet. To continue to follow-up as advised. He is currently making adjustments with his eating habits. He has been following up with nutritional services and had made several lifestyle changes. He also follows up with unit tender, Dr. Arteaga who is working with him to reduce his hemoglobin A1c with medication and behavioral changes. His other labs were reviewed including CBC and CMP. WBC of 12.4 is noted. ESR was updated at 54 and C-reactive protein was 14.3. Smoking cessation was discussed in detail and he was advised on the healing impairment associated with this. To continue with his smoking cessation program. I also recommend discontinuation of nicotine products for this also contributes to small vessel contraction. His cultures are reviewed previously, and multi- organism growth including Klebsiella oxytoca, strep viridans, corynebacterium striatum, Enterococcus faecalis. He has continued with daily cleansing with antimicrobial soap. I recommend an antibiotic at this time and a prescription for Augmentin and ciprofloxacin was provided previously. I also recommend infectious disease referral for work-up of osteomyelitis due to his subtle x-ray findings and progressive ulcer deterioration in the left foot there is a concern of chronic osteomyelitis. He was seen by Dr. Pathak, infectious disease specialist, and a 6-week course will be planned for treatment of osteomyelitis. To complete this course. Input from infectious diseases greatly appreciated. This patient is also a candidate for hyperbaric oxygen therapy and this was discussed at length again today. He did not have any gross abnormalities or acute pathology on his chest x-ray or EKG. These were without abnormalities. At this time, I will refer him for a history and physical and clearance session with an additional wound care center provider. The indication, benefits, risk, complications, anticipated healing time management with his adjunctive advanced hyperbaric oxygen therapy was discussed. He understands the requirements including daily sessions and complete smoking cessation. Compliance is imperative during this time. He like to proceed at this time. He denies acute cardiac or respiratory ailments, hearing difficulties, or claustrophobia. Educational video on this topic was also reviewed previously. He was advised to return to the wound healing center in 1 week or call sooner if he has any questions or concerns. I answered all of his questions today.
[2020-03-08 13:53] VITALS: BP 151/74; PULSE 86; RESP 18; TEMP 36; BMI 43.5
--- NOTE | 2020-03-08 14:37 | PN.PCM_ITS ---
(1) Chronic ulcer of left foot with necrosis of muscle Status: Chronic Current Visit: Yes Code(s): L97.523 - Non-pressure chronic ulcer of other part of left foot with necrosis of muscle (2) Tobacco abuse Status: Acute Current Visit: Yes Code(s): Z72.0 - Tobacco use (3) Colonization status Status: Acute Current Visit: Yes Code(s): Z22.9 - Carrier of infectious disease, unspecified (4) Osteomyelitis of left foot Status: Chronic Current Visit: Yes Qualifiers: Code(s): M86.9 - Osteomyelitis, unspecified (5) Type 2 diabetes mellitus with diabetic polyneuropathy Status: Chronic Current Visit: Yes Qualifiers: Code(s): E11.42 - Type 2 diabetes mellitus with diabetic polyneuropathy (6) Difficulty in walking, not elsewhere classified Status: Acute Current Visit: Yes Code(s): R26.2 - Difficulty in walking, not elsewhere classified Type of Wound Date of Service: 03/08/20 Chief Complaint: left foot ulcers History of Wound: This 64-year-old male with multiple comorbidities was seen today for left foot ulcer. His left foot ulcer onset was 12-07-2019. He is previously known to me and had a left transmetatarsal amputation performed last year for treatment of limb threatening infection. That has since been healed. He has been changing the dressing daily with hydrogel and offloads with a cam walker boot and surgical shoes. He admits that he could keep weight off is better if he uses knee roller however he needs to get his knee roller fixed prior to using it again. He has a family member that may be able to help him with this later this week. He denies fever, chill, nausea, vomiting. He denies odor or redness. He has been washing with the antimicrobial soap as advised. He saw vascular surgery reports that he has some additional procedure scheduled. He is also treated by infectious disease and took Augmentin and ciprofloxacin for treatment of his Emili grade 3 and osteomyelitis. He has had progressive exposure of capsular tissue with intermittent infections consistent with a correct during grade 3 ulcer. He is considering hyperbaric oxygen therapy as recommended. He denies claustrophobia. His diagnostic data does not demonstrate gross abnormalities. He is scheduled to have a history and physical performed this upcoming Friday and may be able to start next week if this goes well. Progress of Wound: Left stable - Physical Exam Vital Signs Temp Pulse Resp BP 96.8 F L 86 18 151/74 H 03/08/20 13:53 03/08/20 13:53 03/08/20 13:53 03/08/20 13:53 General: Alert, Oriented x3, Cooperative HEENT: Atraumatic Extremities: No cyanosis, Capillary Refill Less than 3 Seconds, No Calf Tenderness, Diminished Peripheral Pulses, Edema Skin: Ulcer/ Wound - No purulence, erythema, string, odor, infection. There is continued moderate amounts of peripheral callus and the ulcer bed is granular. There is no deep probing to bone however there is some central deeper tissue exposed such as muscle tissue. The adjacent skin is hairless and atrophic Wound Measurements and Assessment WC - Nurse 1 - General Ulcer Measurement Start: 02/23/20 13:45 Freq: Status: Active Protocol: Activity Type Activity Date Activity User E-Sign Co-Sign Detail Recorded Client Recorded Date Recorded By Document 03/08/20 13:53 DV [id number] 03/08/20 14:00 DV 03/08/20 13:53 Wound Center Nurse 1 [Ulcer Assessment] #1 Left Plantar medial -Combined with other wound No -Current Size (cm) - Length 4.0 -Current Size (cm) - Width 1.9 -Current Size (cm) - Depth 0.3 -Total Square Cm 7.60 -Photo Taken No -Epithelialization None Present -Tunneling No -Undermining/Tunneling No -Circular Undermining No -Classification - Thickness Full Thickness without Exposed Support Structure -Exudate Amt Large -Exudate Type Serosanguineous -Wound Margin Indistinct, Non -Visible -Granulation Amt None Present (0 %) -Granulation Quality N/A -Slough/Fibrin Yes -Necrosis Amt Large (67-100%) -Necrotic Tissue Type Adherent Slough -Structure Exposed None/Limited to Skin Breakdown -Texture (Maria M-wound Skin Appearance) Assessed, Localized Edema ,Scarring -Moisture (Maria M-wound Skin Appearance Weeping ) -Color (Maria M-wound Skin Appearance) Assessed, Erythema, Mottled -Temperature (Maria M-wound Skin No Abnormality Appearance) (Pt Warm) -Tenderness on Palpation (Maria M-wound No Skin Appearance) -Foul Odor after Cleansing No -Anesthetic Used 4% Lidocaine Solution [Edema Assessment] -Left Calf (cm) 46.5 -Point of measurement (cm from the 38.0 medial instep) -Left Ankle (cm) 27.1 -Point of Measurement (cm from the 8.0 medial instep) WC - Nurse 2 - General Ulcer CM Notes Start: 02/23/20 13:45 Freq: Status: Active Protocol: Activity Type Activity Date Activity User E-Sign Co-Sign Detail Recorded Client Recorded Date Recorded By Document 03/08/20 14:17 [id number] 03/08/20 14:19 03/08/20 14:17 Wound Center Nurse 2 [Procedure/Treatment] #1 Left Plantar medial -Time 14:18 -Correct Patient Yes -Correct Side, Site, Position Yes -Correct Procedure Yes -Procedure Performed Yes -Type of Procedure Debridement -Clinical Debridement Subcutaneous -Post Debridement Size (cm) - Length 4 -Post Debridement Size (cm) - Width 2 -Post Debridement Size (cm) - Depth 0.3 -Total Square Cm 8 -Wound/Ulcer Outcome Not Healed -Ulcer Cleansing Rinsed/ Irrigated with Saline -Foul Odor after Cleansing No -Bioengineered Tissue No -Bleeding Controlled with Pressure -Offloading Yes -Type of Offloading Knee Walker -Treatment Response Procedure Tolerated Well [See Physician Procedure note for Specifics] Pain Scale: 0-10 Numeric [Pain] -Is Patient Pain Free? Yes Musculoskeletal: No Tenderness to Palpation of Joints or Extremities, Muscle Wasting, - - Transmetatarsal amputation left Neurological: - - Lack of epicritic sensation light touch is consistent with neuropathy status Psych/Mental Status: Normal Affect, Appropriate Debridement Note Post-Debridement Measurements/Treatment - Nurse 2 - General Ulcer CM Notes Start: 02/23/20 13:45 Freq: Status: Active Protocol: Activity Type Activity Date Activity User E-Sign Co-Sign Detail Recorded Client Recorded Date Recorded By Document 02/23/20 18:54 PL [id number] 02/23/20 18:55 PL Document 03/01/20 14:03 [id number] 03/01/20 14:06 Document 03/08/20 14:17 [id number] 03/08/20 14:19 02/23/20 03/01/20 03/08/20 18:54 14:03 14:17 Wound Center Nurse 2 #1 Left Plantar medial -Time 14:27 14:04 14:18 -Correct Patient Yes Yes Yes -Correct Side, Site, Position Yes Yes Yes -Correct Procedure Yes Yes Yes -Procedure Performed Yes Yes Yes -Type of Procedure Debridement Debridement Debridement -Clinical Debridement Subcutaneous Subcutaneous Subcutaneous -Post Debridement Size (cm) - Length 2.1 1.8 4 -Post Debridement Size (cm) - Width 1.7 1.5 2 -Post Debridement Size (cm) - Depth 0.5 0.7 0.3 -Total Square Cm 3.57 2.70 8 -Wound/Ulcer Outcome Not Healed Not Healed Not Healed -Ulcer Cleansing Rinsed/ Rinsed/ Rinsed/ Irrigated with Irrigated with Irrigated with Saline Saline Saline -Foul Odor after Cleansing No No No -Bioengineered Tissue No No -Bleeding Controlled with Pressure Pressure Pressure -Offloading Yes Yes -Type of Offloading Camwalker Knee Walker -Treatment Response Procedure Procedure Procedure Tolerated Well Tolerated Well Tolerated Well Pain Scale: 0-10 Numeric Is Patient Pain Free? Yes Yes Yes Wound debrided: plantar medial foot Laterality: Left Wound Grade/Stage: grade 3 Type of Debridement: Excisional debridement Anesthesia Used: 5% Lidocaine Gel Depth: in the subcutaneous layer Percentage of wound debrided: 100 Instrument Used: #15 blade Tissue Removed: fibrous, devitalized subcutaneous, biofilm, slough Severity: Fat Layer Exposed Amount of bleeding with debridement: Mild Bleeding Controlled with: Pressure Patient tolerated procedure well Assessment/Plan Active Problems (Last Reviewed 01/17/20 @ 13:[address] Juan Arteaga MD) Tobacco abuse (Acute) Colonization status (Acute) Chronic ulcer of left foot with fat layer exposed (Chronic) Osteomyelitis of left foot (Chronic) Difficulty in walking, not elsewhere classified (Acute) 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) Type 2 diabetes mellitus with diabetic polyneuropathy (Chronic) Assessment: Left plantar medial foot ulcer, grade 3. Chronic osteomyelitis left foot is treated medically at this time. Left transmetatarsal amputation. Diabetes with neuropathy that is uncontrolled. Obesity. Malnutrition suspected Plan: I reviewed and discussed his case. Subcutaneous excisional debridement was performed as noted in the clinical panel to the left foot. The large peripheral callus was also debrided. To continue to change dressing daily with hydrogel to the left foot. I would like to consider advanced wound healing product application, epi-fix, and this will be considered after the quality of the left foot tissue has improved. Prior authorization has been initiated and he is not ready to proceed with this at this time due to his initial [id number] expenses. Keep strict weight off of the sites of the left cam walker boot. He was encouraged to utilize the knee roller. Previous dual density Plastizote liners have been added to relieve the sites at further pressure. Due to the amount of callus formation I am concerned that he still has moderate friction and force applied to the site. I discussed other offloading techniques such as using a walker or a knee roller. He would like to proceed with getting his knee roller adjusted and fixed this week and using that. His noninvasive vascular studies were reviewed from which were normal and intervention was previously not recommended. I advised him to follow-up with all of Dr. Bonilla's recommendations to optimize his healing process. He has recently been seen and intervention is planned for arterial optimization. An updated bilateral duplex was also recommended to help with planning. I recommend an updated left foot x-ray due to the increased depth of 0.7 cm at a recent prior visit. This was performed at the [facility] center in 01-17-2020. The right foot does not have any fractures, dislocation, foreign body, osseous destruction, soft tissue emphysema. The left foot does not have any fracture, dislocation, foreign body, alfred osseous destruction, soft tissue emphysema either however there is a subtle area of radiolucency to the first metatarsal. Given his deeper ulcer status there is a concern of osteomyelitis and muscular infection involvement with progression and now exposed muscle tissue in combination with his overall delaying healing even though he has been on oral antibiotics for medical treatment of chronic osteomyelitis. His hemoglobin A1c was 13 in 2019 I would like to get this updated. An order was provided. His elevated glucose levels are significantly impairing his healing and I recommend he follows up with a phlebotomist associate to better control his diet. To continue to follow-up as advised. He is currently making adjustments with his eating habits. He has been following up with nutritional services and had made several lifestyle changes. He also follows up with mines inspector, Dr. Arteaga who is working with him to reduce his hemoglobin A1c with medication and behavioral changes. His other labs were reviewed including CBC and CMP. WBC of 12.4 is noted. ESR was updated at 54 and C-reactive protein was 14.3. Smoking cessation was discussed in detail and he was advised on the healing impairment associated with this. To continue with his smoking cessation program. I also recommend discontinuation of nicotine products for this also contributes to small vessel contraction. His cultures are reviewed previously, and multi- organism growth including Klebsiella oxytoca, strep viridans, corynebacterium striatum, Enterococcus faecalis. He has continued with daily cleansing with antimicrobial soap. I previously recommended an antibiotic, and a prescription for Augmentin and ciprofloxacin were provided. I also recommend infectious disease referral for Emili grade 3 ulcer and osteomyelitis due to his subtle x- ray findings and progressive ulcer deterioration in the left foot there is a concern of chronic osteomyelitis. He was seen by Dr. Pathak, infectious disease specialist, and a 6-week course will be planned for treatment of osteomyelitis. To complete this course. Input from infectious diseases greatly appreciated. This patient is also a candidate for hyperbaric oxygen therapy and this was discussed at length again today. He did not have any gross abnormalities or acute pathology on his chest x-ray or EKG. These were without abnormalities. At this time, I will refer him for a history and physical and clearance session with an additional wound care center provider. The indication, benefits, risk, complications, anticipated healing time management with his adjunctive advanced hyperbaric oxygen therapy was discussed. He understands the requirements including daily sessions and complete smoking cessation. Compliance is imperative during this time. He would like to proceed at this time. He denies acute cardiac or respiratory ailments, hearing difficulties, or claustrophobia. Educational video on this topic was also r [email or web address] previously. He has his history and physical clearance for hyperbaric oxygen therapy on Friday and will proceed with scheduling if this goes well. He was advised to return to the wound healing center in 1 week or call sooner if he has any questions or concerns. I answered all of his questions today.
[2020-03-15 16:10] VITALS: BP 141/79; PULSE 83; RESP 18; TEMP 37.1; BMI 43.5
--- NOTE | 2020-03-15 16:34 | PN.PCM_ITS ---
(1) Chronic ulcer of left foot with necrosis of muscle Status: Chronic Code(s): L97.523 - Non-pressure chronic ulcer of other part of left foot with necrosis of muscle (2) Tobacco abuse Status: Acute Code(s): Z72.0 - Tobacco use (3) Colonization status Status: Acute Code(s): Z22.9 - Carrier of infectious disease, unspecified (4) Osteomyelitis of left foot Status: Chronic Qualifiers: Code(s): M86.9 - Osteomyelitis, unspecified (5) Type 2 diabetes mellitus with diabetic polyneuropathy Status: Chronic Qualifiers: Code(s): E11.42 - Type 2 diabetes mellitus with diabetic polyneuropathy (6) Difficulty in walking, not elsewhere classified Status: Acute Code(s): R26.2 - Difficulty in walking, not elsewhere classified Type of Wound Date of Service: 03/15/20 Chief Complaint: left foot ulcers History of Wound: This 64-year-old male with multiple comorbidities was seen today for left foot ulcer. His left foot ulcer onset was 12-07-2019. He is previously known to me and had a left transmetatarsal amputation performed last year for treatment of limb threatening infection. That has since been healed. He has been changing the dressing daily with hydrogel and offloads with a cam walker boot and surgical shoes. He admits that he could keep weight off is better if he uses knee roller however he needs to get his knee roller fixed prior to using it again. He has a family member that may be able to help him with this later this week. He denies fever, chill, nausea, vomiting. He denies odor or redness. He has been washing with the antimicrobial soap as advised. He saw vascular surgery reports that he has some additional procedure scheduled. He is also treated by infectious disease and took Augmentin and ciprofloxacin for treatment of his Emili grade 3 and osteomyelitis. He has had progressive exposure of capsular tissue with intermittent infections consistent with a correct during grade 3 ulcer. He is considering hyperbaric oxygen therapy as recommended. He denies claustrophobia. His diagnostic data does not demonstrate gross abnormalities. He is scheduled to have a history and physical performed this upcoming Friday and may be able to start next week if this goes well. This had to be rescheduled and he plans to get back on track. Progress of Wound: Left stable - Physical Exam Vital Signs Temp Pulse Resp BP 98.7 F 83 18 141/79 H 03/15/20 16:10 03/15/20 16:10 03/15/20 16:10 03/15/20 16:10 General: Alert, Oriented x3, Cooperative, No apparent distress Extremities: No cyanosis, Capillary Refill Less than 3 Seconds, No Calf Tenderness, Diminished Peripheral Pulses, Edema - Mild Skin: Ulcer/ Wound - No purulence, erythema, streaking, odor, infection. Deep muscular and fascial layers exposed to the central ulcer site without a direct probing to bone. Peripheral callus is noted. No bogginess or fluctuance on palpation and the compartments of the foot remained soft Wound Measurements and Assessment WC - Nurse 1 - General Ulcer Measurement Start: 02/23/20 13:45 Freq: Status: Active Protocol: Activity Type Activity Date Activity User E-Sign Co-Sign Detail Recorded Client Recorded Date Recorded By Document 03/15/20 16:10 DV [id number] 03/15/20 16:17 DV 03/15/20 16:10 Wound Center Nurse 1 [Ulcer Assessment] #1 Left Plantar medial -Combined with other wound No -Current Size (cm) - Length 3.1 -Current Size (cm) - Width 2.0 -Current Size (cm) - Depth 0.6 -Total Square Cm 6.20 -Photo Taken No -Epithelialization None Present -Tunneling No -Undermining/Tunneling No -Circular Undermining No -Classification - Thickness Full Thickness without Exposed Support Structure -Exudate Amt Large -Exudate Type Serous -Wound Margin Indistinct, Non -Visible -Granulation Quality N/A -Slough/Fibrin Yes -Necrosis Amt Large (67-100%) -Necrotic Tissue Type Adherent Slough -Structure Exposed None/Limited to Skin Breakdown -Texture (Maria M-wound Skin Appearance) Assessed, Scarring,Rash -Moisture (Maria M-wound Skin Appearance Assessed, ) Weeping -Color (Maria M-wound Skin Appearance) Assessed, Erythema -Temperature (Maria M-wound Skin No Abnormality Appearance) (Pt Warm) -Ulcer Cleansing Rinsed/ Irrigated with Saline -Foul Odor after Cleansing No -Anesthetic Used 4% Lidocaine Solution WC - Nurse 2 - General Ulcer CM Notes Start: 02/23/20 13:45 Freq: Status: Active Protocol: Activity Type Activity Date Activity User E-Sign Co-Sign Detail Recorded Client Recorded Date Recorded By Document 03/15/20 16:25 [id number] 03/15/20 16:26 03/15/20 16:25 Wound Center Nurse 2 [Procedure/Treatment] -Time 16:25 -Correct Patient Yes -Correct Side, Site, Position Yes -Correct Procedure Yes -Procedure Performed Yes -Type of Procedure Debridement -Clinical Debridement Subcutaneous -Post Debridement Size (cm) - Length 2.4 -Post Debridement Size (cm) - Width 2.1 -Post Debridement Size (cm) - Depth 0.3 -Total Square Cm 5.04 -Wound/Ulcer Outcome Not Healed -Ulcer Cleansing Rinsed/ Irrigated with Saline -Foul Odor after Cleansing No -Bioengineered Tissue No -Bleeding Controlled with Pressure -Offloading Yes -Type of Offloading Camwalker -Treatment Response Procedure Tolerated Well [See Physician Procedure note for Specifics] Pain Scale: 0-10 Numeric [Pain] -Is Patient Pain Free? Yes Musculoskeletal: No Tenderness to Palpation of Joints or Extremities, Muscle Wasting, - - Transmetatarsal amputation Neurological: - - Lack of epicritic sensation light touch is consistent with neuropathy status Psych/Mental Status: Normal Affect, Appropriate Debridement Note Post-Debridement Measurements/Treatment WC - Nurse 2 - General Ulcer CM Notes Start: 02/23/20 13:45 Freq: Status: Active Protocol: Activity Type Activity Date Activity User E-Sign Co-Sign Detail Recorded Client Recorded Date Recorded By Document 02/23/20 18:54 PL [id number] 02/23/20 18:55 PL Document 03/01/20 14:03 [id number] 03/01/20 14:06 Document 03/08/20 14:17 [id number] 03/08/20 14:19 Document 03/15/20 16:25 [id number] 03/15/20 16:26 02/23/20 03/01/20 03/08/20 18:54 14:03 14:17 Wound Center Nurse 2 #1 Left Plantar medial -Time 14:27 14:04 14:18 -Correct Patient Yes Yes Yes -Correct Side, Site, Position Yes Yes Yes -Correct Procedure Yes Yes Yes -Procedure Performed Yes Yes Yes -Type of Procedure Debridement Debridement Debridement -Clinical Debridement Subcutaneous Subcutaneous Subcutaneous -Post Debridement Size (cm) - Length 2.1 1.8 4 -Post Debridement Size (cm) - Width 1.7 1.5 2 -Post Debridement Size (cm) - Depth 0.5 0.7 0.3 -Total Square Cm 3.57 2.70 8 -Wound/Ulcer Outcome Not Healed Not Healed Not Healed -Ulcer Cleansing Rinsed/ Rinsed/ Rinsed/ Irrigated with Irrigated with Irrigated with Saline Saline Saline -Foul Odor after Cleansing No No No -Bioengineered Tissue No No -Bleeding Controlled with Pressure Pressure Pressure -Offloading Yes Yes -Type of Offloading Camwalker Knee Walker -Treatment Response Procedure Procedure Procedure Tolerated Well Tolerated Well Tolerated Well Pain Scale: 0-10 Numeric Is Patient Pain Free? Yes Yes Yes 03/15/20 16:25 Wound Center Nurse 2 #1 Left Plantar medial -Time 16:25 -Correct Patient Yes -Correct Side, Site, Position Yes -Correct Procedure Yes -Procedure Performed Yes -Type of Procedure Debridement -Clinical Debridement Subcutaneous -Post Debridement Size (cm) - Length 2.4 -Post Debridement Size (cm) - Width 2.1 -Post Debridement Size (cm) - Depth 0.3 -Total Square Cm 5.04 -Wound/Ulcer Outcome Not Healed -Ulcer Cleansing Rinsed/ Irrigated with Saline -Foul Odor after Cleansing No -Bioengineered Tissue No -Bleeding Controlled with Pressure -Offloading Yes -Type of Offloading Camwalker -Treatment Response Procedure Tolerated Well Pain Scale: 0-10 Numeric Is Patient Pain Free? Yes Wound debrided: plantar medial foot Laterality: Left Wound Grade/Stage: grade 3 Type of Debridement: Excisional debridement Anesthesia Used: 5% Lidocaine Gel Depth: in the subcutaneous layer Percentage of wound debrided: 100 Instrument Used: #15 blade Tissue Removed: fibrous, devitalized subcutaneous, biofilm, slough Severity: Fat Layer Exposed Amount of bleeding with debridement: Mild Bleeding Controlled with: Pressure Patient tolerated procedure well Assessment/Plan Assessment: Left plantar medial foot ulcer, grade 3. Chronic osteomyelitis left foot is treated medically at this time. Left transmetatarsal amputation. Diabetes with neuropathy that is uncontrolled. Obesity. Malnutrition suspected Plan: I reviewed and discussed his case. Subcutaneous excisional debridement was performed as noted in the clinical panel to the left foot. The large peripheral callus was also debrided. To continue to change dressing daily with hydrogel to the left foot. I would like to consider advanced wound healing product application, epi-fix, and this will be considered after the quality of the left foot tissue has improved. Prior authorization has been initiated and he is not ready to proceed with this at this time due to his initial [id number] expenses. Keep strict weight off of the sites of the left cam walker boot. He was encouraged to utilize the knee roller. Previous dual density Plastizote liners have been added to relieve the sites at further pressure. Due to the amount of callus formation I am concerned that he still has moderate friction and force applied to the site. I discussed other off loading techniques such as using a walker or a knee roller. He would like to proceed with getting his knee roller adjusted and fixed this week and using that. His noninvasive vascular studies were reviewed from which were normal and intervention was previously not recommended. I advised him to follow-up with all of Dr. Bonilla's recommendations to optimize his healing process. He has recently been seen and intervention is planned for arterial optimization. An updated bilateral duplex was also recommended to help with planning. I recommend an updated left foot x-ray due to the increased depth of 0.7 cm at a recent prior visit. This was performed at the [facility] center in 01-17-2020. The right foot does not have any fractures, dislocation, foreign body, osseous destruction, soft tissue emphysema. The left foot does not have any fracture, dislocation, foreign body, alfred osseous destruction, soft tissue emphysema either however there is a subtle area of radiolucency to the first metatarsal. Given his deeper ulcer status there is a concern of osteomyelitis and muscular infection involvement with progression and now exposed muscle tissue in combination with his overall delaying healing even though he has been on oral antibiotics for medical treatment of chronic osteomyelitis. His hemoglobin A1c was 13 in 2019 I would like to get this updated. An order was provided. His elevated glucose levels are significantly impairing his healing and I recommend he follows up with a interdisciplinary professor to better control his diet. To continue to follow-up as advised. He is currently making adjustments with his eating habits. He has been following up with nutritional services and had made several lifestyle changes. He also follows up with cytogenetic technician, Dr. Arteaga who is working with him to reduce his hemoglobin A1c with medication and behavioral changes. His other labs were reviewed including CBC and CMP. WBC of 12.4 is noted. ESR was updated at 54 and C-reactive protein was 14.3. Smoking cessation was discussed in detail and he was advised on the healing impairment associated with this. To continue with his smoking cessation program. I also recommend discontinuation of nicotine products for this also contributes to small vessel contraction. His cultures are reviewed previously, and multi- organism growth including Klebsiella oxytoca, strep viridans, corynebacterium striatum, Enterococcus faecalis. He has continued with daily cleansing with antimicrobial soap. I previously recommended an antibiotic, and a prescription for Augmentin and ciprofloxacin were provided. I also recommend infectious disease referral for Emili grade 3 ulcer and osteomyelitis due to his subtle x- ray findings and progressive ulcer deterioration in the left foot there is a concern of chronic osteomyelitis. He was seen by Dr. Pathak, infectious disease specialist, and a 6-week course will be planned for treatment of osteomyelitis. To complete this course. Input from infectious diseases greatly appreciated. This patient is also a candidate for hyperbaric oxygen therapy and this was discussed at length again today. He did not have any gross abnormalities or acute pathology on his chest x-ray or EKG. These were without abnormalities. At this time, I will refer him for a history and physical and clearance session with an additional wound care center provider. The indication, benefits, risk, complications, anticipated healing time management with his adjunctive advanced hyperbaric oxygen therapy was discussed. He understands the requirements including daily sessions and complete smoking cessation. Compliance is imperative during this time. He would like to proceed at this time. He denies acute cardiac or respiratory ailments, hearing diff iculties, or claustrophobia. Educational video on this topic was also reviewed previously. He has his history and physical clearance for hyperbaric oxygen therapy on Friday and will proceed with scheduling if this goes well. He was advised to return to the wound healing center in 1 week or call sooner if he has any questions or concerns. I answered all of his questions today.
[2020-03-21 09:43] VITALS: BP 154/71; PULSE 82; RESP 20; TEMP 36.7; BMI 42.8
--- NOTE | 2020-03-21 13:27 | HP.PCM_ITS ---
(1) Tobacco abuse counseling Status: Chronic Current Visit: No Code(s): Z71.6 - Tobacco abuse counseling (2) Delayed wound healing Status: Chronic Current Visit: Yes Code(s): T14.8XXD - Other injury of unspecified body region, subsequent encounter (3) Diabetic infection of left foot Status: Chronic Current Visit: Yes Code(s): E11.628 - Type 2 diabetes mellitus with other skin complications; L08.9 - Local infection of the skin and subcutaneous tissue, unspecified (4) Difficulty in walking, not elsewhere classified Status: Chronic Current Visit: No Code(s): R26.2 - Difficulty in walking, not elsewhere classified (5) Obesity Status: Chronic Current Visit: No Qualifiers: Obesity classification: adult class 3 (BMI >= 40) Serious obesity comorbidity presence: with serious comorbidity Body mass index: BMI 40.0-44.9 Code(s): E66.9 - Obesity, unspecified (6) Tobacco abuse Status: Chronic Current Visit: Yes Code(s): Z72.0 - Tobacco use (7) Chronic ulcer of left foot with fat layer exposed Status: Chronic Current Visit: Yes Code(s): L97.522 - Non-pressure chronic ulcer of other part of left foot with fat layer exposed (8) Chronic ulcer of left foot with necrosis of muscle Status: Chronic Current Visit: Yes Code(s): L97.523 - Non-pressure chronic ulcer of other part of left foot with necrosis of muscle (9) Diabetes Status: Chronic Current Visit: Yes Qualifiers: Diabetes mellitus type: type 2 Diabetes mellitus watermaster insulin use: with senior care use Diabetes mellitus complication status: with hyperglycemia Qualified Code(s): E11.65 - Type 2 diabetes mellitus with hyperglycemia; Z79.4 - senior living (current) use of insulin Code(s): E11.9 - Type 2 diabetes mellitus without complications (10) Diabetic neuropathy Status: Chronic Current Visit: Yes Qualifiers: Diabetes mellitus type: type 2 Diabetes mellitus complication detail: diabetic polyneuropathy Qualified Code(s): E11.42 - Type 2 diabetes mellitus with diabetic polyneuropathy Code(s): E11.40 - Type 2 diabetes mellitus with diabetic neuropathy, unspecified (11) Diabetic ulcer of left foot Status: Chronic Current Visit: Yes Qualifiers: Diabetic foot ulcer location: midfoot Diabetes mellitus type: type 2 Code(s): E11.621 - Type 2 diabetes mellitus with foot ulcer; L97.529 - Non- pressure chronic ulcer of other part of left foot with unspecified severity (12) Hypertension Status: Chronic Current Visit: No Code(s): I10 - Essential (primary) hypertension (13) Mixed hyperlipidemia Status: Chronic Current Visit: No Code(s): E78.2 - Mixed hyperlipidemia (14) Morbid obesity due to excess calories Status: Chronic Current Visit: No Code(s): E66.01 - Morbid (severe) obesity due to excess calories (15) Obstructive sleep apnea Status: Chronic Current Visit: No Code(s): G47.33 - Obstructive sleep apnea (adult) (pediatric) (16) Polyneuropathy due to type 2 diabetes mellitus Status: Chronic Current Visit: No Code(s): E11.42 - Type 2 diabetes mellitus with diabetic polyneuropathy (17) 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 Status: Chronic Current Visit: No Code(s): E11.22 - Type 2 diabetes mellitus with diabetic chronic kidney disease; N18.2 - Chronic kidney disease, stage 2 (mild) (18) Tobacco dependence due to cigarettes Status: Chronic Current Visit: Yes Code(s): F17.210 - Nicotine dependence, cigarettes, uncomplicated (19) Type 2 diabetes mellitus Status: Chronic Current Visit: Yes Code(s): E11.9 - Type 2 diabetes mellitus without complications (20) Type 2 diabetes mellitus with diabetic polyneuropathy Status: Chronic Current Visit: Yes Qualifiers: Diabetes mellitus senior care insulin use: with watermaster use Code(s): E11.42 - Type 2 diabetes mellitus with diabetic polyneuropathy (21) Uncontrolled diabetes mellitus Status: Chronic Current Visit: Yes Qualifiers: Diabetes mellitus type: type 2 Code(s): E11.65 - Type 2 diabetes mellitus with hyperglycemia History of Present Illness Date of Service: 03/21/20 Chief Complaint: Diabetic left foot ulceration, Mancilla Grade 3, with infection History of Wound: This is a 65-year-old diabetic male with a Mancilla grade 3 diabetic foot ulceration of the left foot. Patient has had a longstanding history of diabetic complications in his left foot. On May 18, 2019, he underwent a left transmetatarsal amputation with partial complex closure. Following his recovery, he developed a left first transmetatarsal diabetic foot ulceration, for which she has been under the care of Dr. Claudio and Dr. Pathak. Local wound care measures have been provided at the [facility] on a weekly basis. Offloading measures, a surgical shoe, and a cam walker boot have been implemented. Nutritional consultation has been provided to optimize the patient's nutritional intake. Efforts to optimize the patient's glycemic control have also been implemented. The patient is known to be a smoker, and smoking cessation has been discussed with the patient in detail repeatedly. However, the patient continues to smoke approximately 1 pack of cigarettes per day. Cultures of the patient's left foot ulceration have been obtained, as recently as January 12, 2020, which were positive for Klebsiella oxytoca, Streptococcus viridans group, Corynebacterium stratum, and Enterococcus faecalis. The assistance of the Infectious Disease service was sought, and the patient was evaluated by Dr. Pathak on February 16, 2020. The patient has been treated with courses of antibiotics, which have included Cipro and Augmentin for a full 6-week period. Despite all measures employed, the patient's Mancilla Grade 3 diabetic left foot ulceration has failed to heal, prompting consideration of hyperbaric oxygen therapy as a treatment modality. This 65-year-old male has multiple comorbidities, documented below. These include uncontrolled diabetes mellitus with peripheral neuropathy, tobacco abuse, struct of sleep apnea, stage II chronic kidney disease, hyperlipidemia, and morbid obesity. His current left foot ulceration has been present since mid-November 2019.patient has been evaluated by the Vascular Surgery service. Review of his noninvasive lower extremity arterial study reveals arterial flow to be normal at ankle level on the left, with arterial calcification at digital level. As noted by Dr. Claudio, the patient has had progressive exposure of capsular tissue with intermittent infections consistent with a Mancilla Grade 3 diabetic foot ulcer. He denies claustrophobia. His diagnostic data does not demonstrate gross abnormalities. Past Medical History Past Medical History: Chronic Problems (Last Reviewed 01/17/20 @ 13:[address] 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) Diabetes (Chronic) Type 2 diabetes mellitus (Chronic) Obstructive sleep apnea (Chronic) Uncontrolled diabetes mellitus (Chronic) Diabetic infection of left foot (Chronic) Osteomyelitis of great toe of left foot (Chronic) Morbid obesity due to excess calories (Chronic) Tobacco dependence due to cigarettes (Chronic) Diabetic neuropathy (Chronic) Hypertension (Chronic) 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) Surgical History: - - Surgery to the right ankle for fracture, left foot transmetatarsal amputation Allergies/Adverse Reactions: Allergies No Known Allergies Allergy (Verified 10/18/19 09:18) Home Medications: Ambulatory Orders Medication Instructions Recorded Calcium Carbonate [Calcium] 500 mg PO DAILY 06/23/17 Gabapentin [Neurontin] 300 mg PO TIDCM 06/23/17 Multivitamin [Multiple Vitamins] 1 ea PO DAILY 06/23/17 aspirin 81 mg tablet,delayed 81 mg PO DAILY 08/12/19 release atorvastatin 40 mg tablet 40 mg PO DAILY 10/18/19 bupropion HCl 150 mg 24 hr tablet, 150 mg PO BID tab 10/18/19 extended release lisinopril 10 mg tablet 10 mg PO DAILY 10/18/19 tamsulosin 0.4 mg capsule 0.4 mg PO DAILY@1730 cap 10/18/19 blood sugar diagnostic See Rx Instructions .ROUTE 10/28/19 .MEDSUPPLY #100 ea lancets 33 gauge See Rx Instructions .ROUTE 10/28/19 .MEDSUPPLY #100 ea Amoxicillin/Potassium Clav 1 ea PO BID #70 tab 01/26/20 [Augmentin 875-125 Tablet] Ciprofloxacin/Ciprofloxa HCl 500 mg PO BID #70 tbmp.24hr 01/26/20 [Ciprofloxacin ER 500 mg Tablet] insulin regular hum U-500 conc 135 unit SC TID #24 ml 02/01/20 - Family History Maternal Family History: Family History (Last Reviewed 10/18/19 @ 09:[address] Juan Arteaga MD) Father Myocardial infarction Heart disease Mother Kidney disease Diabetes Sister Asthma Breast cancer Hypertension Brother Alcoholism Melanoma Diabetes, Renal Disease - on dialysis Paternal Family History: Family History (Last Reviewed 10/18/19 @ 09:[address] Juan Arteaga MD) Father Myocardial infarction Heart disease Mother Kidney disease Diabetes Sister Asthma Breast cancer Hypertension Brother Alcoholism Melanoma Heart Disease Sibling Family History: Family History (Last Reviewed 10/18/19 @ 09:[address] Juan Arteaga MD) Father Myocardial infarction Heart disease Mother Kidney disease Diabetes Sister Asthma Breast cancer Hypertension Brother Alcoholism Melanoma Cancer - breast cancer in his sister Social History: The patient is . He lives alone. He does not work, ending disability. 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 He denies the use of alcohol. He smokes 1 pack of cigarettes per day, reduced from a prior history of several packs per day. Lives: Alone Smoking Status: Heavy Smoker (>10/day) Tobacco Use: Cigarettes Alcohol: None Drugs: None Review of Systems Constitutional: Reports: - - Patient denies claustrophobia.. Denies: Chills, Fever, Weight Change Eyes: Denies: Pain, Vision Change HEENT: Reports: - - Patient has a remote history of ear infections, for which she required placement of tympanostomy tubes approximately 10 years ago. Otherwise, he has had no recent problems with his ears. 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 Denies: Difficulty H earing, Difficulty Swallowing, Sinus Congestion Cardiovascular: Reports: - - The patient denies a history of cardiac disease.. Denies: Chest Pain, Palpitations Respiratory: Reports: - - Patient has no history of significant pulmonary disease, emphysema, bronchitis, COPD, pneumothorax, etc.. Denies: Cough, Shortness of Breath Gastrointestinal: Denies: Diarrhea, Nausea, Vomiting Genitourinary: Denies: Dysuria, Hematuria Neurological: Reports: - - Patient denies any history of neurological abnormalities, but for fever induced childhood seizures. He has had no seizures as an adult. Endocrine: Denies: Heat/ Cold Intolerance, Polydipsia, Polyuria Hematologic/ Lymphatic: Reports: - - Patient denies a history of anemia, blood clotting disorders, or other hematological abnormalities.. Denies: Easy Bruising, Easy Bleeding - Physical Exam Vital Signs Temp Pulse Resp BP 98.0 F 82 20 H 154/71 H 03/21/20 09:43 03/21/20 09:43 03/21/20 09:43 03/21/20 09:43 General: Alert, Oriented x3, Cooperative, No apparent distress, Well developed, Well nourished, - - The patient is morbidly obese HEENT: Atraumatic, PERRLA, EOMI - There is a moderate amount of cerumen in the ear canals bilaterally, which does not obscure the tympanic membranes., Normocephalic, TM's Clear, - - Otoscopic examination reveals the tympanic me mbranes to be intact and normal in appearance. There is a moderate amount of Oral: Moist Mucosa, No Gingival or Mucosal Lesions/ Ulcerations Neck: Supple, No JVD, Negative Carotid Bruits, Negative Hepatojugular Reflux, No Nuchal Rigidity, Trachea Midline Lungs: Clear to auscultation, Normal air movement, No rhonchi, No wheeze, No rales Cardiovascular: Regular rate, Regular Rhythm, Normal S1, Normal S2, No murmurs Abdomen: Soft, Non Tender, Non-Distended, Obese Extremities: No clubbing, No cyanosis, No edema, No Calf Tenderness, - - A well- healed left transmetatarsal amputation stump is noted. Patient is noted to have a large open ulceration overlying the left first metatarsal head. There is no obvious roberto-ulcer erythema. There is a moderate amount of bioburden. Dimensions are documented elsewhere. Skin: No rashes Musculoskeletal: No Muscle Wasting Neurological: Cranial nerves II-XII grossly intact Psych/Mental Status: Normal Affect, Appropriate, Alert and oriented to time, place, person, mood and affect Debridement Note Post-Debridement Measurements/Treatment WC - Nurse 2 - General Ulcer CM Notes Start: 02/23/20 13:45 Freq: Status: Active Protocol: Activity Type Activity Date Activity User E-Sign Co-Sign Detail Recorded Client Recorded Date Recorded By Document 02/23/20 18:54 PL [id number] 02/23/20 18:55 PL Document 03/01/20 14:03 [id number] 03/01/20 14:06 Document 03/08/20 14:17 [id number] 03/08/20 14:19 Document 03/15/20 16:25 [id number] 03/15/20 16:26 02/23/20 03/01/20 03/08/20 18:54 14:03 14:17 Wound Center Nurse 2 #1 Left Plantar medial -Time 14:27 14:04 14:18 -Correct Patient Yes Yes Yes -Correct Side, Site, Position Yes Yes Yes -Correct Procedure Yes Yes Yes -Procedure Performed Yes Yes Yes -Type of Procedure Debridement Debridement Debridement -Clinical Debridement Subcutaneous Subcutaneous Subcutaneous -Post Debridement Size (cm) - Length 2.1 1.8 4 -Post Debridement Size (cm) - Width 1.7 1.5 2 -Post Debridement Size (cm) - Depth 0.5 0.7 0.3 -Total Square Cm 3.57 2.70 8 -Wound/Ulcer Outcome Not Healed Not Healed Not Healed -Ulcer Cleansing Rinsed/ Rinsed/ Rinsed/ Irrigated with Irrigated with Irrigated with Saline Saline Saline -Foul Odor after Cleansing No No No -Bioengineered Tissue No No -Bleeding Controlled with Pressure Pressure Pressure -Offloading Yes Yes -Type of Offloading Camwalker Knee Walker -Treatment Response Procedure Procedure Procedure Tolerated Well Tolerated Well Tolerated Well Pain Scale: 0-10 Numeric Is Patient Pain Free? Yes Yes Yes 03/15/20 16:25 Wound Center Nurse 2 #1 Left Plantar medial -Time 16:25 -Correct Patient Yes -Correct Side, Site, Position Yes -Correct Procedure Yes -Procedure Performed Yes -Type of Procedure Debridement -Clinical Debridement Subcutaneous -Post Debridement Size (cm) - Length 2.4 -Post Debridement Size (cm) - Width 2.1 -Post Debridement Size (cm) - Depth 0.3 -Total Square Cm 5.04 -Wound/Ulcer Outcome Not Healed -Ulcer Cleansing Rinsed/ Irrigated with Saline -Foul Odor after Cleansing No -Bioengineered Tissue No -Bleeding Controlled with Pressure -Offloading Yes -Type of Offloading Camwalker -Treatment Response Procedure Tolerated Well Pain Scale: 0-10 Numeric Is Patient Pain Free? Yes No debridement was completed today Assessment/Plan Active Problems (Last Reviewed 01/17/20 @ 13:[address] Juan Arteaga MD) Tobacco abuse (Chronic) Chronic ulcer of left foot with fat layer exposed (Chronic) Diabetic ulcer of left foot (Chronic) Delayed wound healing (Chronic) 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) Diabetes (Chronic) Type 2 diabetes mellitus (Chronic) Uncontrolled diabetes mellitus (Chronic) Diabetic infection of left foot (Chronic) Tobacco dependence due to cigarettes (Chronic) Diabetic neuropathy (Chronic) Type 2 diabetes mellitus with diabetic polyneuropathy (Chronic) Assessment: Left plantar medial foot ulcer, Mancilla Grade 3. Chronic osteomyelitis left foot is treated medically at this time. Post-left transmetatarsal amputation. Diabetes mellitus with neuropathy that is uncontrolled. Morbid obesity. Obstructive sleep apnea. Renal insufficiency, stage 2. Hypertension. Hyperlipidemia Plan: The patient's past medical history has been thoroughly reviewed. The patient has been examined, and a medical history has been obtained. Patient's recent diagnostic tests have been reviewed. A chest x-ray, obtained on February 20, 2020, reveals no acute cardiopulmonary disease. An EKG, formed on February 18, 2020, reveals normal sinus rhythm and is also noted to be normal. Recent laboratory results have also been reviewed, with results as follows: White blood count 11.8, hemoglobin 15.7, hematocrit 48.1, platelets 214,000, ESR 53, sodium 138, potassium 4.3, chloride 107, BUN 11, creatinine 0.76, glucose 220, hemoglobin A1c 10.5, total bilirubin 0.40, AST 21, ALT 36, alkaline phosphatase 79, total protein 7.1, albumin 3.2. Based upon a review of the patient's past medical history, as well as current findings, there appeared to be no specific contraindications to proceeding with hyperbaric oxygen therapy. Patient appears to have a Mancilla Grade 3 diabetic left foot ulceration, for which he is likely to benefit from hyperbaric oxygen therapy. The patient's vascular status, nutritional status, glycemic status, and body systems have all been assessed. Management of the patient's left foot infection has also been optimized, having recruited the expertise of the Infectious Disease service, and having undergone antibiotic treatment for at least 6 weeks.-year-old debridements have also been performed. It appears as though he is likely to benefit from hyperbaric oxygen therapy. The patient has been counseled as to the potential benefits of hyperbaric oxygen therapy. Its indications and risks have been thoroughly explained. Patient's questions have been answered. The patient has indicated his desire to proceed with hyperbaric oxygen therapy. He appears to understand the commitment to appear every weekday for hyperbaric oxygen treatments. It is anticipated that he will undergo 30 treatments at 2 silas for 90 minutes each, with no anticipated need for air breaks. In the foreseeable future, it is anticipated that the patient will remain under the care of his Podiatric specialist, Dr. Claudio. He is to continue to optimize his nutritional intake and glycemic control. He stands 6 feet 1 inches tall, and weighs 325 pounds. His BMI is 42.8, which places him in a class III obesity category. Weight loss has been recommended. The patient has been advised to discontinue his smoking habit. In this regard, collaboration with his primary care physician has been recommended.
== END 2020-03-21 23:59 ==
LOC: WC 09:30
PROVIDERS: PCP Family Medicine Geriatric Medicine; Referring Provider Podiatrist; Visit Provider Podiatrist
DX: E11.621 Type 2 diabetes mellitus with foot ulcer (principal); L97.523 Non-pressure chronic ulcer of other part of left foot with necrosis of muscle; L97.522 Non-pressure chronic ulcer of other part of left foot with fat layer exposed; E11.69 Type 2 diabetes mellitus with other specified complication; M86.672 Other chronic osteomyelitis, left ankle and foot; E11.628 Type 2 diabetes mellitus with other skin complications; L08.9 Local infection of the skin and subcutaneous tissue, unspecified; E11.22 Type 2 diabetes mellitus with diabetic chronic kidney disease; I12.9 Hypertensive chronic kidney disease with stage 1 through stage 4 chronic kidney disease, or unspecified chronic kidney disease; N18.2 Chronic kidney disease, stage 2 (mild); E11.42 Type 2 diabetes mellitus with diabetic polyneuropathy; E11.65 Type 2 diabetes mellitus with hyperglycemia; E78.2 Mixed hyperlipidemia; G47.33 Obstructive sleep apnea (adult) (pediatric); F17.210 Nicotine dependence, cigarettes, uncomplicated; E66.01 Morbid (severe) obesity due to excess calories; Z68.41 Body mass index [BMI] 40.0-44.9, adult; Z22.9 Carrier of infectious disease, unspecified; Z79.4 Long term (current) use of insulin; Z79.82 Long term (current) use of aspirin; Z79.899 Other long term (current) drug therapy
CPT/HCPCS: 11042; 99213; G0463

== ENCOUNTER → 2020-04-10 16:07 | Outpatient (CLI) | payer MEDICARE, MEDICAID, SELFPAY ==
[2020-04-05 11:03] VITALS: BMI 42.8
[2020-04-10 17:10] LABS: Absolute Lymphocyte Count 2.34 X10^3/uL (0.83-4.51); Absolute Neutrophil Count 8.6 X10^3/uL (2.0-7.7); Basophil# 0.11 X10^3/uL; Basophil% 0.9 % (0-1); Eosinophil# 0.34 X10^3/uL; Eosinophils% 2.7 % (0-5); Hematocrit 45.5 % (40-54); Hemoglobin 14.4 g/dL (13.0-16.5); Lymphocyte # 2.34 X10^3/ul (4.0); Lymphocyte % 18.9 % (19-41); Mean Corp Hgb Conc 31.6 g/dL (32-36); Mean Corpuscular Hgb 29.8 pg (27.0-32.0); Mean Corpuscular Volume 94.2 fL (80-94); Mean Platelet Vol. 10.8 fl (6.2-12.0); Monocyte# 0.84 X10^3/uL; Monocyte% 6.8 % (0-10); NRBC Flagged by Analyzer 0 % (0-5); Neutrophil # 8.63 X10^3/uL (2.7-7.7); Neutrophil % 69.7 % (47-70); Platelet Count 257 K/mm3 (150-450); RBC Distribution Width CV 14.1 % (11.6-14.6); RBC Distribution Width SD 48.6 fl (35.1-43.9); Red Blood Count 4.83 M/mm3 (4.6-6.2); White Blood Count 12.4 K/mm3 (4.4-11.0)
[2020-04-10 17:30] LABS: ALB/GLOB Ratio 0.8 RATIO (0.9-2.4); AST(SGOT) 15 U/L (15-37); Alanine Aminotransfer ALT/SGPT 35 U/L (16-61); Albumin, Serum 3.2 g/dL (3.2-5.0); Alkaline Phosphatase 70 U/L (45-117); Anion Gap 5 (5-15); BUN 14 mg/dL (7-18); BUN/Creat Ratio 16.5 RATIO (10-20); Calcium,Total 8.7 mg/dL (8.5-10.1); Chloride 108 mmol/L (98-107); Creatinine, Serum 0.85 mg/dL (0.70-1.30); EST Glomerular Filtration Rate 96 mL/min (>60); Est Glom Filt Rate - Afr Amer 117 mL/min (>60); Globulin 3.9 g/dL (2.2-4.2); Glucose 173 mg/dL (74-106); Potassium 4.3 mmol/L (3.5-5.1); Protein, Total 7.1 g/dL (6.4-8.2); Sodium Level 141 mmol/L (136-145); Thyroid Stim Hormone (TSH) 1.78 uIU/mL (0.358-3.74)
== END ==
PROVIDERS: PCP Family Medicine Geriatric Medicine; Visit Provider Family Medicine Geriatric Medicine
DX: E11.9 Type 2 diabetes mellitus without complications (principal); I10 Essential (primary) hypertension; F52.8 Other sexual dysfunction not due to a substance or known physiological condition
CPT/HCPCS: 36415; 80053; 84403; 84443; 85025

== ENCOUNTER 2020-04-21 08:30 | Outpatient (RCR) | payer BC, MEDICAID, SELFPAY ==
[2020-03-22 00:28] VITALS: BP 154/71; PULSE 82; RESP 20; TEMP 36.7
--- NOTE | 2020-03-27 18:01 | WC ---
[facility] Authorization number [id number]
[2020-03-29 14:24] VITALS: BP 142/57; PULSE 98; RESP 20; TEMP 36.8; BMI 42.8
--- NOTE | 2020-03-29 16:35 | PN.PCM_ITS ---
(1) Chronic ulcer of left foot with necrosis of bone Status: Chronic Code(s): L97.524 - Non-pressure chronic ulcer of other part of left foot with necrosis of bone (2) Tobacco abuse Status: Chronic Code(s): Z72.0 - Tobacco use (3) Osteomyelitis of left foot Status: Chronic Qualifiers: Code(s): M86.9 - Osteomyelitis, unspecified (4) Delayed wound healing Status: Chronic Code(s): T14.8XXD - Other injury of unspecified body region, subsequent encounter (5) Polyneuropathy due to type 2 diabetes mellitus Status: Chronic Code(s): E11.42 - Type 2 diabetes mellitus with diabetic polyneuropathy Type of Wound Date of Service: 03/29/20 Chief Complaint: Diabetic left foot ulceration, Mancilla Grade 3, with infection History of Wound: This is a 65-year-old diabetic male with a Mancilla grade 3 diabetic foot ulceration of the left foot. Patient has had a longstanding history of diabetic complications in his left foot. On May 18, 2019, he underwent a left transmetatarsal amputation with partial complex closure. Following his recovery, he developed a left first transmetatarsal diabetic foot ulceration, for which she has been under the care of Dr. Claudio and Dr. Pathak. Local wound care measures have been provided at the [facility] on a weekly basis. Offloading measures, a surgical shoe, and a cam walker boot have been implemented. Nutritional consultation has been provided to optimize the patient's nutritional intake. Efforts to optimize the patient's glycemic control have also been implemented. The patient is known to be a smoker, and smoking cessation has been discussed with the patient in detail repeatedly. However, the patient continues to smoke approximately 1 pack of cigarettes per day. Cultures of the patient's left foot ulceration have been obtained, as recently as January 12, 2020, which were positive for Klebsiella oxytoca, Streptococcus viridans group, Corynebacterium stratum, and Enterococcus faecalis. The assistance of the Infectious Disease service was sought, and the patient was evaluated by Dr. Pathak on February 16, 2020. The patient has been treated with courses of antibiotics, which have included Cipro and Augmentin for a full 6-week period. Despite all measures employed, the patient's Mancilla Grade 3 diabetic left foot ulceration has failed to heal, prompting consideration of hyperbaric oxygen therapy as a treatment modality. This 65-year-old male has multiple comorbidities, documented below. These include uncontrolled diabetes mellitus with peripheral neuropathy, tobacco abuse, struct of sleep apnea, stage II chronic kidney disease, hyperlipidemia, and morbid obesity. His current left foot ulceration has been present since mid-November 2019.patient has been evaluated by the Vascular Surgery service. Review of his noninvasive lower extremity arterial study reveals arterial flow to be normal at ankle level on the left, with arterial calcification at digital level. The patient has had progressive exposure of capsular tissue with intermittent infections consistent with a Mancilla Grade 3 diabetic foot ulcer. He denies claustrophobia. His diagnostic data does not demonstrate gross abnormalities. Progress of Wound: Left stable - Physical Exam Vital Signs Temp Pulse Resp BP 98.2 F 98 20 H 142/57 H 03/29/20 14:24 03/29/20 14:24 03/29/20 14:24 03/29/20 14:24 General: Alert, Oriented x3, Cooperative Extremities: No cyanosis, Capillary Refill Less than 3 Seconds, No Calf Tenderness, Diminished Peripheral Pulses, Edema - Mild Skin: Ulcer/ Wound - No purulence, erythema, streaking, odor. Peripheral skin is atrophic. The peripheral callus has a lot of buildup adjacent to the ulcer Wound Measurements and Assessment WC - Nurse 1 - General Ulcer Measurement Start: 03/29/20 14:24 Freq: Status: Active Protocol: Activity Type Activity Date Activity User E-Sign Co-Sign Detail Recorded Client Recorded Date Recorded By Document 03/29/20 14:24 [id number] 03/29/20 14:34 03/29/20 14:24 Wound Center Nurse 1 [Ulcer Assessment] #1 Left Plantar medial -Combined with other wound No -Current Size (cm) - Length 1.7 -Current Size (cm) - Width 2.0 -Current Size (cm) - Depth 0.5 -Total Square Cm 3.40 -Photo Taken No -Granulation Quality Hyper- granulation,Red -Texture (Maria M-wound Skin Appearance) Assessed, Scarring -Moisture (Maria M-wound Skin Appearance Assessed, ) Maceration,Dry/ Scaly -Color (Maria M-wound Skin Appearance) Assessed, Hemosiderin Staining -Temperature (Maria M-wound Skin No Abnormality Appearance) (Pt Warm) -Tenderness on Palpation (Maria M-wound No Skin Appearance) -Ulcer Cleansing Soap and water -Foul Odor after Cleansing No -Anesthetic Used 4% Lidocaine Solution [Edema Assessment] -Lower Limb Edema Present Yes -Left Calf (cm) 45.5 -Point of measurement (cm from the 38.0 medial instep) -Left Ankle (cm) 29.0 -Point of Measurement (cm from the 5.0 medial instep) WC - Nurse 2 - General Ulcer CM Notes Start: 03/29/20 14:24 Freq: Status: Active Protocol: Activity Type Activity Date Activity User E-Sign Co-Sign Detail Recorded Client Recorded Date Recorded By Document 03/29/20 15:29 MW [id number] 03/29/20 15:30 MW 03/29/20 15:29 Wound Center Nurse 2 [Procedure/Treatment] #1 Left Plantar medial -Time 15:30 -Correct Patient Yes -Correct Side, Site, Position Yes -Correct Procedure Yes -Procedure Performed Yes -Type of Procedure Debridement -Clinical Debridement Subcutaneous -Post Debridement Size (cm) - Length 1.8 -Post Debridement Size (cm) - Width 2.0 -Post Debridement Size (cm) - Depth 0.5 -Total Square Cm 3.60 -Wound/Ulcer Outcome Not Healed -Ulcer Cleansing Rinsed/ Irrigated with Saline -Foul Odor after Cleansing No -Bioengineered Tissue No -Bleeding Controlled with Pressure -Offloading No -Treatment Response Procedure Tolerated Well [See Physician Procedure note for Specifics] Pain Scale: 0-10 Numeric [Pain] -Is Patient Pain Free? Yes Musculoskeletal: No Tenderness to Palpation of Joints or Extremities, Muscle Wasting, - - Left transmetatarsal amputation. Compartments are soft to palpate left lower extremity Neurological: - - Lack of epicritic sensation light touch is consistent with neuropathy status Psych/Mental Status: Normal Affect, Appropriate Debridement Note Post-Debridement Measurements/Treatment WC - Nurse 2 - General Ulcer CM Notes Start: 03/29/20 14:24 Freq: Status: Active Protocol: Activity Type Activity Date Activity User E-Sign Co-Sign Detail Recorded Client Recorded Date Recorded By Document 03/29/20 15:29 MW [id number] 03/29/20 15:30 MW 03/29/20 15:29 Wound Center Nurse 2 #1 Left Plantar medial -Time 15:30 -Correct Patient Yes -Correct Side, Site, Position Yes -Correct Procedure Yes -Procedure Performed Yes -Type of Procedure Debridement -Clinical Debridement Subcutaneous -Post Debridement Size (cm) - Length 1.8 -Post Debridement Size (cm) - Width 2.0 -Post Debridement Size (cm) - Depth 0.5 -Total Square Cm 3.60 -Wound/Ulcer Outcome Not Healed -Ulcer Cleansing Rinsed/ Irrigated with Saline -Foul Odor after Cleansing No -Bioengineered Tissue No -Bleeding Controlled with Pressure -Offloading No -Treatment Response Procedure Tolerated Well Pain Scale: 0-10 Numeric Is Patient Pain Free? Yes Wound debrided: plantar medial foot Laterality: Left Wound Grade/Stage: grade 3 Type of Debridement: Excisional debridement Anesthesia Used: 5% Lidocaine Gel Depth: in the subcutaneous layer Percentage of wound debrided: 100 Instrument Used: 5mm curette, - - soft tissue nipper Tissue Removed: fibrous, devitalized subcutaneous, biofilm, slough, callous Severity: Fat Layer Exposed Amount of bleeding with debridement: Mild Bleeding Controlled with: Pressure Patient tolerated procedure well Assessment/Plan Assessment: Left plantar medial foot ulcer, Mancilla Grade 3. Chronic osteomyelitis left foot is treated medically at this time. Post-left transmetatarsal amputation. Diabetes mellitus with neuropathy that is uncontrolled. Morbid obesity. Obstructive sleep apnea. Renal insufficiency, stage 2. Hypertension. Hyperlipidemia Plan: The patient's past medical history has been thoroughly reviewed. The patient has been examined, and a medical history has been obtained. Patient's recent diagnostic tests have been reviewed. A chest x-ray, obtained on February 20, 2020, reveals no acute cardiopulmonary disease. An EKG, formed on February 18, 2020, reveals normal sinus rhythm and is also noted to be normal. Recent laboratory results have also been reviewed, with results as follows: White blood count 11.8, hemoglobin 15.7, hematocrit 48.1, platelets 214,000, ESR 53, sodium 138, potassium 4.3, chloride 107, BUN 11, creatinine 0.76, glucose 220, hemoglobin A1c 10.5, total bilirubin 0.40, AST 21, ALT 36, alkaline phosphatase 79, total protein 7.1, albumin 3.2. Based upon a review of the patient's past medical history, as well as current findings, there appeared to be no specific contraindications to proceeding with hyperbaric oxygen therapy. Patient appears to have a Mancilla Grade 3 diabetic left foot ulceration, for which he is likely to benefit from hyperbaric oxygen therapy. The patient's vascular status, nutritional status, glycemic status, and body systems have all been assessed. Management of the patient's left foot infection has also been optimized, having recruited the expertise of the Infectious Disease service, and having undergone antibiotic treatment for at least 6 weeks. debridements have also been performed as noted in the clinical panel. It appears as though he is likely to benefit from hyperbaric oxygen therapy. The patient has been counseled as to the potential benefits of hyperbaric oxygen therapy. Its indications and risks have been thoroughly explained. Patient's questions have been answered. The patient has indicated his desire to proceed with hyperbaric oxygen therapy. He appears to understand the commitment to appear every weekday for hyperbaric oxygen treatments. It is anticipated that he will undergo 30 treatments at 2 silas for 90 minutes each, with no anticipated need for air breaks. He is to continue to optimize his nutritional intake and glycemic control. The patient has been advised to discontinue his smoking habit. In this regard, collaboration with his primary care physician has been recommended.
--- NOTE | 2020-04-03 11:50 | WC ---
Patient arrived to wound center for initial HBO therapy treatment. VS obtained at 1120. Blood glucose - 146, BP- 134/73, Pulse -87, Resp-16, temp- 97.2. Christen Gonzalez [employer] was unable to visualize tympanic membrane of both ears due to wax occluding view. Patient was advised to go to the [facility] to have ears cleaned per Christen. He will be rescheduled for HBO therapy tomorrow at 1130. Voiced understanding.
--- NOTE | 2020-04-03 20:45 | PN.PCM_ITS ---
(1) Cerumen impaction Status: Acute Current Visit: Yes Code(s): H61.20 - Impacted cerumen, unsp ecified ear (2) Chronic ulcer of left foot with fat layer exposed Status: Chronic Current Visit: Yes Code(s): L97.522 - Non-pressure chronic ulcer of other part of left foot with fat layer exposed (3) Tobacco abuse Status: Chronic Current Visit: Yes Code(s): Z72.0 - Tobacco use (4) Osteomyelitis of left foot Status: Chronic Current Visit: Yes Qualifiers: Code(s): M86.9 - Osteomyelitis, unspecified (5) Diabetic ulcer of left foot Status: Chronic Current Visit: Yes Qualifiers: Diabetic foot ulcer location: midfoot Diabetes mellitus type: type 2 Code(s): E11.621 - Type 2 diabetes mellitus with foot ulcer; L97.529 - Non- pressure chronic ulcer of other part of left foot with unspecified severity Type of Wound Date of Service: 04/03/20 Chief Complaint: Diabetic left foot ulceration, Mancilla Grade 3, with infection History of Wound: This is a 65-year-old diabetic male with a Mancilla grade 3 diabetic foot ulceration of the left foot. Patient has had a longstanding history of diabetic complications in his left foot. On May 18, 2019, he underwent a left transmetatarsal amputation with partial complex closure. Following his recovery, he developed a left first transmetatarsal diabetic foot ulceration, for which she has been under the care of Dr. Claudio and Dr. Pathak. Local wound care measures have been provided at the [facility] on a weekly basis. Offloading measures, a surgical shoe, and a cam walker boot have been implemented. Nutritional consultation has been provided to optimize the patient's nutritional intake. Efforts to optimize the patient's glycemic control have also been implemented. The patient is known to be a smoker, and smoking cessation has been discussed with the patient in detail repeatedly. However, the patient continues to smoke approximately 1 pack of cigarettes per day. Cultures of the patient's left foot ulceration have been obtained, as recently as January 12, 2020, which were positive for Klebsiella oxytoca, Streptococcus viridans group, Corynebacterium stratum, and Enterococcus faecalis. The assistance of the Infectious Disease service was sought, and the patient was evaluated by Dr. Pathak on February 16, 2020. The patient has been treated with courses of antibiotics, which have included Cipro and Augmentin for a full 6-week period. Despite all measures employed, the patient's Mancilla Grade 3 diabetic left foot ulceration has failed to heal, prompting consideration of hyperbaric oxygen therapy as a treatment modality. This 65-year-old male has multiple comorbidities, documented below. These include uncontrolled diabetes mellitus with peripheral neuropathy, tobacco abuse, struct of sleep apnea, stage II chronic kidney disease, hyperlipidemia, and morbid obesity. His current left foot ulceration has been present since mid-November 2019.patient has been evaluated by the Vascular Surgery service. Review of his noninvasive lower extremity arterial study reveals arterial flow to be normal at ankle level on the left, with arterial calcification at digital level. The patient has had progressive exposure of capsular tissue with intermittent infections consistent with a Mancilla Grade 3 diabetic foot ulcer. He denies claustrophobia. His diagnostic data does not demonstrate gross abnormalities. Progress of Wound: Left stable - Physical Exam Vital Signs Temp Pulse Resp BP 98.2 F 98 20 H 142/57 H 03/29/20 14:24 03/29/20 14:24 03/29/20 14:24 03/29/20 14:24 General: Alert, Oriented x3, Cooperative HEENT: Atraumatic, Normocephalic, - - Bilateral cerumen impaction. Left TM completely occluded with cerumen. Able to remove a significant amount of cerumen with a curette but there is more cerumen deeper into the ear canal. Right TM is partially occluded with cerumen. There is a small amount of TM is visible. Lungs: Clear to auscultation, Normal air movement Cardiovascular: Regular rate, Regular Rhythm Extremities: Capillary Refill Less than 3 Seconds Neurological: Cranial nerves II-XII grossly intact Psych/Mental Status: Normal Affect, Appropriate Debridement Note Post-Debridement Measurements/Treatment WC - Nurse 2 - General Ulcer CM Notes Start: 03/29/20 14:24 Freq: Status: Active Protocol: Activity Type Activity Date Activity User E-Sign Co-Sign Detail Recorded Client Recorded Date Recorded By Document 03/29/20 15:29 MW [id number] 03/29/20 15:30 MW 03/29/20 15:29 Wound Center Nurse 2 #1 Left Plantar medial -Time 15:30 -Correct Patient Yes -Correct Side, Site, Position Yes -Correct Procedure Yes -Procedure Performed Yes -Type of Procedure Debridement -Clinical Debridement Subcutaneous -Post Debridement Size (cm) - Length 1.8 -Post Debridement Size (cm) - Width 2.0 -Post Debridement Size (cm) - Depth 0.5 -Total Square Cm 3.60 -Wound/Ulcer Outcome Not Healed -Ulcer Cleansing Rinsed/ Irrigated with Saline -Foul Odor after Cleansing No -Bioengineered Tissue No -Bleeding Controlled with Pressure -Offloading No -Treatment Response Procedure Tolerated Well Pain Scale: 0-10 Numeric Is Patient Pain Free? Yes No debridement was completed today Assessment/Plan Active Problems (Last Reviewed 01/17/20 @ 13:[address] Juan Arteaga MD) Tobacco abuse (Chronic) Chronic ulcer of left foot with fat layer exposed (Chronic) Osteomyelitis of left foot (Chronic) Diabetic ulcer of left foot (Chronic) Cerumen impaction (Acute) Assessment: Left plantar medial foot ulcer, Mancilla Grade 3. Chronic osteomyelitis left foot is treated medically at this time. Post-left transmetatarsal amputation. Diabetes mellitus with neuropathy that is uncontrolled. Morbid obesity. Obstructive sleep apnea. Renal insufficiency, stage 2. Hypertension. Hyperlipidemia Plan: Patient came in today for his first HBO therapy treatment. On his assessment before starting his treatment his left TM is completely occluded with cerumen. Able to remove significant amount with a currette but there is more cerumen that needs to be irrigated out. The right TM is partially occluded with cerumen. Able to remove a small amount of the ear canal, but it did not improve the visualization of his right TM. Visualization of the TMs would be preferred before the patient has his first HBO treatment. The wound center does not have the equipment to irrigate the cerumen, so will hold his HBO therapy today and [facility] have the [facility]umen [facility] from his his ear canals bilaterally. He should be able return tomorrow to start his HBOT. Office Visits / Consults: [id number] OV L3 Est
[2020-04-04 07:16] LABS: Bedside Glucose 146 mg/dL (70-110)
[2020-04-04 11:50] VITALS: BP 144/75; PULSE 102; RESP 18; TEMP 36.8
[2020-04-04 11:50] LABS: Bedside Glucose 145 mg/dL (70-110)
[2020-04-04 14:16] LABS: Bedside Glucose 114 mg/dL (70-110)
--- NOTE | 2020-04-04 14:38 | PCM.HBO.PN ---
History of Present Illness Date of Service: 04/04/20 Presenting Chief Complaint: Diabetic left foot ulceration, Mancilla Grade 3, with infection GEN SIM is a 65 year old currently undergoing hyperbaric oxygen therapy for Mancilla Grade 3 diabetic left foot ulceration with infection/osteomyelitis. Progress: This represents the 1st such session of hyperbaric oxygen therapy. Tolerance of hyperbaric oxygen therapy: Hyperbaric oxygen therapy was administered as per the facility's protocol. The patient was able to enter the entire hyperbaric oxygen session. However, during the course of HBO therapy, he experienced pressure in both ears, which was somewhat uncomfortable. It was learned that he has a history of sinus problems, for which myringotomy tubes have been placed in the past, during adulthood. Other than pressure in his ears, the patient tolerated HBO therapy without complaints or complications. Upon emergence from the hyperbaric chamber, the patient's vital signs remained stable. Otoscopic examination revealed the tympanic membranes to be normal in appearance. Discussion was undertaken as to the likely cause of his ear pressure, related to barotrauma from enhanced atmospheric pressure. The patient was counseled as to the potential benefits of otolaryngology consultation, and the placement of myringotomy tubes to prevent further barotrauma in the future, and related complications. The patient has granted consent, and arrangements are to be made for the patient to be evaluated by the ENT service, where tube placement is likely. Patient was discharged in good condition. HBO therapy was administered for 90 minutes at 2 silas, with two 5-minute air breaks. Past Medical History Chronic Problems (Last Reviewed 01/17/20 @ 13:[address] 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) Diabetes (Chronic) Type 2 diabetes mellitus (Chronic) Obstructive sleep apnea (Chronic) Uncontrolled diabetes mellitus (Chronic) Diabetic infection of left foot (Chronic) Osteomyelitis of great toe of left foot (Chronic) Morbid obesity due to excess calories (Chronic) Tobacco dependence due to cigarettes (Chronic) Diabetic neuropathy (Chronic) Hypertension (Chronic) 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) Allergies/Adverse Reactions: Allergies No Known Allergies Allergy (Verified 10/18/19 09:18) Home Medications: Ambulatory Orders Medication Instructions Recorded Calcium Carbonate [Calcium] 500 mg PO DAILY 06/23/17 Gabapentin [Neurontin] 300 mg PO TIDCM 06/23/17 Multivitamin [Multiple Vitamins] 1 ea PO DAILY 06/23/17 aspirin 81 mg tablet,delayed 81 mg PO DAILY 08/12/19 release atorvastatin 40 mg tablet 40 mg PO DAILY 10/18/19 bupropion HCl 150 mg 24 hr tablet, 150 mg PO BID tab 10/18/19 extended release lisinopril 10 mg tablet 10 mg PO DAILY 10/18/19 tamsulosin 0.4 mg capsule 0.4 mg PO DAILY@1730 cap 10/18/19 blood sugar diagnostic See Rx Instructions .ROUTE 10/28/19 .MEDSUPPLY #100 ea lancets 33 gauge See Rx Instructions .ROUTE 10/28/19 .MEDSUPPLY #100 ea Amoxicillin/Potassium Clav 1 ea PO BID #70 tab 01/26/20 [Augmentin 875-125 Tablet] Ciprofloxacin/Ciprofloxa HCl 500 mg PO BID #70 tbmp.24hr 01/26/20 [Ciprofloxacin ER 500 mg Tablet] insulin regular hum U-500 conc 135 unit SC TID #24 ml 02/01/20 Maternal Family History: Family History (Last Reviewed 10/18/19 @ 09:[address] Juan Arteaga MD) Father Myocardial infarction Heart disease Mother Kidney disease Diabetes Sister Asthma Breast cancer Hypertension Brother Alcoholism Melanoma Family History: Diabetes, Renal Disease - on dialysis Paternal Family History: Family History (Last Reviewed 10/18/19 @ 09:[address] Juan Arteaga MD) Father Myocardial infarction Heart disease Mother Kidney disease Diabetes Sister Asthma Breast cancer Hypertension Brother Alcoholism Melanoma Family History: Heart Disease Sibling Family History: Family History (Last Reviewed 10/18/19 @ 09:[address] Juan Arteaga MD) Father Myocardial infarction Heart disease Mother Kidney disease Diabetes Sister Asthma Breast cancer Hypertension Brother Alcoholism Melanoma Family History: Cancer - breast cancer in his sister Smoking Status: Heavy Smoker (>10/day) Tobacco Use: Cigarettes Physical Exam Vital Signs Temp Pulse Resp BP 98.2 F 102 H 18 144/75 H 04/04/20 11:50 04/04/20 11:50 04/04/20 11:50 04/04/20 11:50 General: Alert, Oriented x3, Cooperative, No apparent distress, Well developed, Well nourished, - - Patient is morbidly obese HEENT: Atraumatic, PERRLA, EOMI, Normocephalic, TM's Clear - Post HBO therapy Lungs: Normal air movement Psych/Mental Status: Normal Affect, Appropriate, Alert and oriented to time, place, person, mood and affect Assessment/Plan Active Problems (Last Reviewed 01/17/20 @ 13:[address] Juan Arteaga MD) Tobacco abuse (Chronic) Chronic ulcer of left foot with fat layer exposed (Chronic) Osteomyelitis of left foot (Chronic) Diabetic ulcer of left foot (Chronic) Cerumen impaction (Acute) The patient experienced mild pressure sensation in both ears during the course of his HBO therapy session today. Therefore, and after thorough discussion with the patient, he is to be referred for ENT consultation, where myringotomy tubes are anticipated to be placed. HBO therapy will then continue thereafter. Treatment Course Number Number of HBO Treatments 30 Ordered Treatment Course Number 1 Treatment # 1 Chamber # [id number] Chamber Type Monoplace HBO Diagnosis/Indication Diagnosis/Indication(s) for Left Diabetic Foot Ulcer,Standard/Conservative Hyperbaric Therapy Classification - Mancilla Grade 2 Grading (Diabetic Ulcer) [] Classification - Mancilla Grade 2 Grading (Diabetic Ulcer) [] Classification - Mancilla Grade 3 Grading (Diabetic Ulcer) Diabetes - Detail Diabetes Diabetes Type II Diabetes Control Uncontrolled Left Extremity Ulcer, Other part of Foot Treatment Plan MARTITA (Atmospheric Absolute) 2 Number of Minutes 90 Number of Air Breaks 2
[2020-04-05 08:05] LABS: Bedside Glucose 152 mg/dL (70-110)
[2020-04-05 08:34] VITALS: BP 136/91; BP 149/68; PULSE 105; PULSE 67; RESP 16; RESP 18; TEMP 36.2; TEMP 36.7
--- NOTE | 2020-04-05 10:38 | PCM.HBO.PN ---
History of Present Illness Date of Service: 04/05/20 Presenting Chief Complaint: Diabetic left foot ulceration, Mancilla Grade 3, with infection GEN SIM is a 65 year old currently undergoing hyperbaric oxygen therapy for Mancilla Grade 3 diabetic left foot ulceration with infection/osteomyelitis. Progress: This represents the 2st such session of hyperbaric oxygen therapy. Tolerance of hyperbaric oxygen therapy: Hyperbaric oxygen therapy was administered as per the facility's protocol. The patient was able to enter the entire hyperbaric oxygen session. However, during the course of HBO therapy, he experienced pressure in both ears, which was somewhat uncomfortable. It was learned that he has a history of sinus problems, for which myringotomy tubes have been placed in the past, during adulthood. Other than pressure in his ears, the patient tolerated HBO therapy without complaints or complications. Upon emergence from the hyperbaric chamber, the patient's vital signs remained stable. Otoscopic examination revealed the tympanic membranes to be normal in appearance. Discussion was undertaken as to the likely cause of his ear pressure, related to barotrauma from enhanced atmospheric pressure. The patient was counseled as to the potential benefits of otolaryngology consultation, and the placement of myringotomy tubes to prevent further barotrauma in the future, and related complications. The patient has granted consent, and arrangements are to be made for the patient to be evaluated by the ENT service, where tube placement is likely. Patient was discharged in good condition. HBO therapy was administered for 90 minutes at 2 silas, with two 5-minute air breaks. Patient seen by ENT and had bilateral tubes put in reevaluated before patient was put into the chamber both ears intact tubes with some blood in the canals due to drainage. Patient denies any pain and is tolerating the compression of the HBO chamber well. Patient was discharged in good health and stable vital signs. Past Medical History Chronic Problems (Last Reviewed 01/17/20 @ 13:[address] 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) Diabetes (Chronic) Type 2 diabetes mellitus (Chronic) Obstructive sleep apnea (Chronic) Uncontrolled diabetes mellitus (Chronic) Diabetic infection of left foot (Chronic) Osteomyelitis of great toe of left foot (Chronic) Morbid obesity due to excess calories (Chronic) Tobacco dependence due to cigarettes (Chronic) Diabetic neuropathy (Chronic) Hypertension (Chronic) 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) Allergies/Adverse Reactions: Allergies No Known Allergies Allergy (Verified 10/18/19 09:18) Home Medications: Ambulatory Orders Medication Instructions Recorded Calcium Carbonate [Calcium] 500 mg PO DAILY 06/23/17 Gabapentin [Neurontin] 300 mg PO TIDCM 06/23/17 Multivitamin [Multiple Vitamins] 1 ea PO DAILY 06/23/17 aspirin 81 mg tablet,delayed 81 mg PO DAILY 08/12/19 release atorvastatin 40 mg tablet 40 mg PO DAILY 10/18/19 bupropion HCl 150 mg 24 hr tablet, 150 mg PO BID tab 10/18/19 extended release lisinopril 10 mg tablet 10 mg PO DAILY 10/18/19 tamsulosin 0.4 mg capsule 0.4 mg PO DAILY@1730 cap 10/18/19 blood sugar diagnostic See Rx Instructions .ROUTE 10/28/19 .MEDSUPPLY #100 ea lancets 33 gauge See Rx Instructions .ROUTE 10/28/19 .MEDSUPPLY #100 ea Amoxicillin/Potassium Clav 1 ea PO BID #70 tab 01/26/20 [Augmentin 875-125 Tablet] Ciprofloxacin/Ciprofloxa HCl 500 mg PO BID #70 tbmp.24hr 01/26/20 [Ciprofloxacin ER 500 mg Tablet] insulin regular hum U-500 conc 135 unit SC TID #24 ml 02/01/20 Maternal Family History: Family History (Last Reviewed 10/18/19 @ 09:[address] Juan Arteaga MD) Father Myocardial infarction Heart disease Mother Kidney disease Diabetes Sister Asthma Breast cancer Hypertension Brother Alcoholism Melanoma Family History: Diabetes, Renal Disease - on dialysis Paternal Family History: Family History (Last Reviewed 10/18/19 @ 09:[address] Juan Arteaga MD) Father Myocardial infarction Heart disease Mother Kidney disease Diabetes Sister Asthma Breast cancer Hypertension Brother Alcoholism Melanoma Family History: Heart Disease Sibling Family History: Family History (Last Reviewed 10/18/19 @ 09:[address] Juan Arteaga MD) Father Myocardial infarction Heart disease Mother Kidney disease Diabetes Sister Asthma Breast cancer Hypertension Brother Alcoholism Melanoma Family History: Cancer - breast cancer in his sister Smoking Status: Heavy Smoker (>10/day) Tobacco Use: Cigarettes Physical Exam Vital Signs Temp Pulse Resp BP 98.0 F 105 H 18 136/91 H 04/05/20 08:34 04/05/20 08:34 04/05/20 08:34 04/05/20 08:34 Assessment/Plan Active Problems (Last Reviewed 01/17/20 @ 13:[address] Juan Arteaga MD) Tobacco abuse (Chronic) Chronic ulcer of left foot with fat layer exposed (Chronic) Osteomyelitis of left foot (Chronic) Diabetic ulcer of left foot (Chronic) Cerumen impaction (Acute) The patient experienced mild pressure sensation in both ears during the course of his HBO therapy session today. Therefore, and after thorough discussion with the patient, he is to be referred for ENT consultation, where myringotomy tubes are anticipated to be placed. HBO therapy will then continue thereafter. Treatment Course Number Number of HBO Treatments 30 Ordered Treatment Course Number 1 Treatment # 2 Chamber # [id number] Chamber Type Monoplace HBO Diagnosis/Indication Diagnosis/Indication(s) for Left Diabetic Foot Ulcer,Standard/Conservative Hyperbaric Therapy Classification - Mancilla Grade 2 Grading (Diabetic Ulcer) [#2 right 5th metatarsal] Classification - Mancilla Grade 2 Grading (Diabetic Ulcer) [#1 Left Plantar medial] Classification - Mancilla Grade 3 Grading (Diabetic Ulcer) Diabetes - Detail Diabetes Diabetes Type II Diabetes Control Uncontrolled Left Extremity Ulcer, Other part of Foot Treatment Plan MARTITA (Atmospheric Absolute) 2 Number of Minutes 90 Number of Air Breaks 2
[2020-04-05 10:45] LABS: Bedside Glucose 105 mg/dL (70-110)
[2020-04-05 11:03] VITALS: BP 149/68; PULSE 83; RESP 18; TEMP 36.6; BMI 42.8
--- NOTE | 2020-04-05 15:36 | PN.PCM_ITS ---
(1) Chronic ulcer of left foot with necrosis of bone Status: Chronic Code(s): L97.524 - Non-pressure chronic ulcer of other part of left foot with necrosis of bone (2) Tobacco abuse Status: Chronic Code(s): Z72.0 - Tobacco use (3) Osteomyelitis of left foot Status: Chronic Qualifiers: Code(s): M86.9 - Osteomyelitis, unspecified (4) Delayed wound healing Status: Chronic Code(s): T14.8XXD - Other injury of unspecified body region, subsequent encounter (5) Polyneuropathy due to type 2 diabetes mellitus Status: Chronic Code(s): E11.42 - Type 2 diabetes mellitus with diabetic polyneuropathy Type of Wound Date of Service: 04/05/20 Chief Complaint: Diabetic left foot ulceration, Mancilla Grade 3, with infection History of Wound: This 65-year-old male with multiple comorbidities was seen today for left foot ulcer. His left foot ulcer onset was 12-07-2019. He is previously known to me and had a left transmetatarsal amputation performed last year for treatment of limb threatening infection. That has since been healed. He has been changing the dressing daily with hydrogel and offloads with a cam walker boot and surgical shoes. He admits that he could keep weight off is better if he uses knee roller however he needs to get his knee roller fixed prior to using it again. He denies fever, chill, nausea, vomiting. He denies odor or redness. He has been washing with the antimicrobial soap as advised. He saw vascular surgery reports that he has some additional procedure scheduled. He is also treated by infectious disease and took Augmentin and ciprofloxacin for treatment of his Emili grade 3 and osteomyelitis. He has had progressive exposure of capsular tissue with intermittent infections consistent with a correct during grade 3 ulcer. He is considering hyperbaric oxygen therapy as recommended. He denies claustrophobia. He is a hyperbaric oxygen therapy candidate and had 1 session completed. Since that time he had ear buildup. This was subsequently cleared and he had a tube applied as well. Progress of Wound: Left stable - Physical Exam Vital Signs Temp Pulse Resp BP 97.8 F 83 18 149/68 H 04/05/20 11:03 04/05/20 11:03 04/05/20 11:03 04/05/20 11:03 General: Alert, Oriented x3, Cooperative, No apparent distress Extremities: No cyanosis, Capillary Refill Less than 3 Seconds, No Calf Tenderness, Diminished Peripheral Pulses, Edema Skin: Ulcer/ Wound - No purulence, erythema, streaking, odor, infection. There is some peripheral callus and this is decreased from last week. The ulcer bed is granular and there is no deep probing. His adjacent skin is hairless and atrophic Wound Measurements and Assessment WC - Nurse 1 - General Ulcer Measurement Start: 03/29/20 14:24 Freq: Status: Active Protocol: Activity Type Activity Date Activity User E-Sign Co-Sign Detail Recorded Client Recorded Date Recorded By Document 04/05/20 11:03 DL [id number] 04/05/20 11:09 DL 04/05/20 11:03 Wound Center Nurse 1 [Ulcer Assessment] #1 Left Plantar medial -Current Size (cm) - Length 1.7 -Current Size (cm) - Width 1.7 -Current Size (cm) - Depth 0.4 -Total Square Cm 2.89 -Photo Taken No -Exudate Amt Small -Exudate Type Serosanguineous -Wound Margin Thickened -Granulation Amt Large (67-100%) -Granulation Quality [place] -Necrosis Amt Small (1-33%) -Necrotic Tissue Type Adherent Slough -Structure Exposed N/A -Texture (Maria M-wound Skin Appearance) Callus,Scarring -Moisture (Maria M-wound Skin Appearance Maceration ) -Color (Maria M-wound Skin Appearance) Hemosiderin Staining -Temperature (Maria M-wound Skin No Abnormality Appearance) (Pt Warm) -Tenderness on Palpation (Maria M-wound No Skin Appearance) -Ulcer Cleansing Wound Cleanser -Foul Odor after Cleansing No -Anesthetic Used 4% Lidocaine Solution [Edema Assessment] -Left Calf (cm) 46 -Left Ankle (cm) 26.8 WC - Nurse 2 - General Ulcer CM Notes Start: 03/29/20 14:24 Freq: Status: Active Protocol: Activity Type Activity Date Activity User E-Sign Co-Sign Detail Recorded Client Recorded Date Recorded By Document 04/05/20 11:36 CASSY [id number] 04/05/20 11:37 CASSY 04/05/20 11:36 Wound Center Nurse 2 [Procedure/Treatment] #1 Left Plantar medial -Time 11:36 -Correct Patient Yes -Correct Side, Site, Position Yes -Correct Procedure Yes -Procedure Performed Yes -Type of Procedure Debridement -Clinical Debridement Subcutaneous -Post Debridement Size (cm) - Length 1.8 -Post Debridement Size (cm) - Width 1.8 -Post Debridement Size (cm) - Depth 0.5 -Total Square Cm 3.24 -Wound/Ulcer Outcome Not Healed -Ulcer Cleansing Rinsed/ Irrigated with Saline -Foul Odor after Cleansing No -Bioengineered Tissue No -Bleeding Controlled with Pressure -Offloading Yes -Type of Offloading Camwalker -Treatment Response Procedure Tolerated Well [See Physician Procedure note for Specifics] Pain Scale: 0-10 Numeric [Pain] -Is Patient Pain Free? Yes Musculoskeletal: No Tenderness to Palpation of Joints or Extremities, Muscle Wasting, - - Transmetatarsal amputation left Neurological: - - Lack of normal epicritic sensation light touch is consistent with neuropathy status Psych/Mental Status: Normal Affect, Appropriate Debridement Note Post-Debridement Measurements/Treatment WC - Nurse 2 - General Ulcer CM Notes Start: 03/29/20 14:24 Freq: Status: Active Protocol: Activity Type Activity Date Activity User E-Sign Co-Sign Detail Recorded Client Recorded Date Recorded By Document 03/29/20 15:29 [id number] 03/29/20 15:30 Document 04/05/20 11:36 [id number] 04/05/20 11:37 03/29/20 04/05/20 15:29 11:36 Wound Center Nurse 2 #1 Left Plantar medial -Time 15:30 11:36 -Correct Patient Yes Yes -Correct Side, Site, Position Yes Yes -Correct Procedure Yes Yes -Procedure Performed Yes Yes -Type of Procedure Debridement Debridement -Clinical Debridement Subcutaneous Subcutaneous -Post Debridement Size (cm) - Length 1.8 1.8 -Post Debridement Size (cm) - Width 2.0 1.8 -Post Debridement Size (cm) - Depth 0.5 0.5 -Total Square Cm 3.60 3.24 -Wound/Ulcer Outcome Not Healed Not Healed -Ulcer Cleansing Rinsed/ Rinsed/ Irrigated with Irrigated with Saline Saline -Foul Odor after Cleansing No No -Bioengineered Tissue No No -Bleeding Controlled with Pressure Pressure -Offloading No Yes -Type of Offloading Camwalker -Treatment Response Procedure Procedure Tolerated Well Tolerated Well Pain Scale: 0-10 Numeric Is Patient Pain Free? Yes Yes Wound debrided: plantar medial foot Laterality: Left Wound Grade/Stage: grade 3 Type of Debridement: Excisional debridement Anesthesia Used: 5% Lidocaine Gel Depth: in the subcutaneous layer Percentage of wound debrided: 100 Instrument Used: #15 blade Tissue Removed: fibrous, devitalized subcutaneous, biofilm, slough Severity: Fat Layer Exposed Amount of bleeding with debridement: Mild Bleeding Controlled with: Pressure Patient tolerated procedure well Assessment/Plan Assessment: Left plantar medial foot ulcer, Mancilla Grade 3. Chronic osteomyelitis left foot is treated medically at this time. Post-left transmetatarsal amputation. Diabetes mellitus with neuropathy that is uncontrolled. Morbid obesity. Obstructive sleep apnea. Renal insufficiency, stage 2. Hypertension. Hyperlipidemia Plan: I reviewed and discussed his case. Subcutaneous excisional debridement was performed as noted in the clinical panel to the left foot. The large peripheral callus was also debrided. To continue to change dressing daily with hydrogel to the left foot. I would like to consider advanced wound healing product application, epi-fix, and this will be considered after the quality of the left foot tissue has improved. Prior authorization has been initiated and he is not ready to proceed with this at this time due to his initial [id number] expenses. Keep strict weight off of the sites of the left cam walker boot. He was encouraged to utilize the knee roller. Previous dual density Plastizote liners have been added to relieve the sites at further pressure. Due to the amount of callus formation I am concerned that he still has moderate friction and force applied to the site. I discussed other offloading techniques such as using a walker or a knee roller. He would like to proceed with getting his knee roller adjusted and fixed this week and using that. His noninvasive vascular studies were reviewed from which were normal and intervention was previously not recommended. I advised him to follow-up with all of Dr. Bonilla's recommendations to optimize his healing process. He has recently been seen and intervention is planned for arterial optimization. An updated bilateral duplex was also recommended to help with planning. I recommend an updated left foot x-ray due to the increased depth of 0.7 cm at a recent prior visit. This was performed at the [facility] center in 01-17-2020. The right foot does not have any fractures, dislocation, foreign body, osseous destruction, soft tissue emphysema. The left foot does not have any fracture, dislocation, foreign body, alfred osseous destruction, soft tissue emphysema either however there is a subtle area of radiolucency to the first metatarsal. Given his deeper ulcer status there is a concern of osteomyelitis and muscular infection involvement with progression and now exposed muscle tissue in combination with his overall delaying healing even though he has been on oral antibiotics for medical treatment of chronic osteomyelitis. His hemoglobin A1c was 13 in 2019 I would like to get this updated. An order was provided. His elevated glucose levels are significantly impairing his healing and I recommend he follows up with a building code administrator to better control his diet. To continue to follow-up as advised. He is currently making adjustments with his eating habits. He has been following up with nutritional services and had made several lifestyle changes. He also follows up with stretcher operator, Dr. Arteaga who is working with him to reduce his hemoglobin A1c with medication and behavioral changes. His other labs were reviewed including CBC and CMP. WBC of 12.4 is noted. ESR was updated at 54 and C-reactive protein was 14.3. Smoking cessation was discussed in detail and he was advised on the healing impairment associated with this. To continue with his smoking cessation program. I also recommend discontinuation of nicotine products for this also contributes to small vessel contraction. His cultures are reviewed previously, and multi- organism growth including Klebsiella oxytoca, strep viridans, corynebacterium striatum, Enterococcus faecalis. He has continued with daily cleansing with antimicrobial soap. I previously recommended an antibiotic, and a prescription for Augmentin and ciprofloxacin were provided. I also recommend infectious disease referral for Mancilla grade 3 ulcer and osteomyelitis due to his subtle x- ray findings and progressive ulcer deterioration in the left foot there is a concern of chronic osteomyelitis. He was seen by Dr. Pathak, infectious disease specialist, and a 6-week course will be planned for treatment of osteomyelitis. To complete this course. Input from infectious diseases greatly appreciated. This patient is also a candidate for hyperbaric oxygen therapy and this was discussed at length again today. He did not have any gross abnormalities or acute pathology on his chest x-ray or EKG. These were without abnormalities. He is an appropriate hyperbaric oxygen therapy candidate and he has been cleared. He underwent 1 session so far. The indication, benefits, risk, complications, anticipated healing time management with his adjunctive advanced hyperbaric oxygen therapy was discussed. He understands the requirements including daily sessions and complete smoking cessation. Compliance is imperative during this time. Clearance by other wound care center providers have greatly appreciated. It is noted he had recent in her cecum buildup. This was subsequently cleared and he had a tube placed. I answered all of his questions today.
--- NOTE | 2020-04-06 08:36 | PCM.HBO.PN ---
History of Present Illness Date of Service: 04/06/20 Presenting Chief Complaint: Diabetic left foot ulceration, Mancilla Grade 3, with infection GEN SIM is a 65 year old currently undergoing hyperbaric oxygen therapy for Mancilla Grade 3 diabetic left foot ulceration with infection/osteomyelitis. Progress: This represents the 3rd such session of hyperbaric oxygen therapy. Tolerance of hyperbaric oxygen therapy: Hyperbaric oxygen therapy was administered as per the facility's protocol. HBO therapy was terminated after about an hour because patient felt immensely hot. On emergence, his vitals were stable. He Had bilateral ear tubes placed on 04 April 2020. Pre-and post blood glucose levels as documented. Past Medical History Chronic Problems (Last Reviewed 01/17/20 @ 13:[address] 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) Diabetes (Chronic) Type 2 diabetes mellitus (Chronic) Obstructive sleep apnea (Chronic) Uncontrolled diabetes mellitus (Chronic) Diabetic infection of left foot (Chronic) Osteomyelitis of great toe of left foot (Chronic) Morbid obesity due to excess calories (Chronic) Tobacco dependence due to cigarettes (Chronic) Diabetic neuropathy (Chronic) Hypertension (Chronic) 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) Allergies/Adverse Reactions: Allergies No Known Allergies Allergy (Verified 10/18/19 09:18) Home Medications: Ambulatory Orders Medication Instructions Recorded Calcium Carbonate [Calcium] 500 mg PO DAILY 06/23/17 Gabapentin [Neurontin] 300 mg PO TIDCM 06/23/17 Multivitamin [Multiple Vitamins] 1 ea PO DAILY 06/23/17 aspirin 81 mg tablet,delayed 81 mg PO DAILY 08/12/19 release atorvastatin 40 mg tablet 40 mg PO DAILY 10/18/19 bupropion HCl 150 mg 24 hr tablet, 150 mg PO BID tab 10/18/19 extended release lisinopril 10 mg tablet 10 mg PO DAILY 10/18/19 tamsulosin 0.4 mg capsule 0.4 mg PO DAILY@1730 cap 10/18/19 blood sugar diagnostic See Rx Instructions .ROUTE 10/28/19 .MEDSUPPLY #100 ea lancets 33 gauge See Rx Instructions .ROUTE 10/28/19 .MEDSUPPLY #100 ea Amoxicillin/Potassium Clav 1 ea PO BID #70 tab 01/26/20 [Augmentin 875-125 Tablet] Ciprofloxacin/Ciprofloxa HCl 500 mg PO BID #70 tbmp.24hr 01/26/20 [Ciprofloxacin ER 500 mg Tablet] insulin regular hum U-500 conc 135 unit SC TID #24 ml 02/01/20 Maternal Family History: Family History (Last Reviewed 10/18/19 @ 09:[address] Juan Arteaga MD) Father Myocardial infarction Heart disease Mother Kidney disease Diabetes Sister Asthma Breast cancer Hypertension Brother Alcoholism Melanoma Family History: Diabetes, Renal Disease - on dialysis Paternal Family History: Family History (Last Reviewed 10/18/19 @ 09:[address] Juan Arteaga MD) Father Myocardial infarction Heart disease Mother Kidney disease Diabetes Sister Asthma Breast cancer Hypertension Brother Alcoholism Melanoma Family History: Heart Disease Sibling Family History: Family History (Last Reviewed 10/18/19 @ 09:[address] Juan Arteaga MD) Father Myocardial infarction Heart disease Mother Kidney disease Diabetes Sister Asthma Breast cancer Hypertension Brother Alcoholism Melanoma Family History: Cancer - breast cancer in his sister Smoking Status: Heavy Smoker (>10/day) Tobacco Use: Cigarettes Physical Exam Vital Signs Temp Pulse Resp BP 97.8 F 83 18 149/68 H 04/05/20 11:03 04/05/20 11:03 04/05/20 11:03 04/05/20 11:03 General: Alert, Oriented x3, Cooperative, No apparent distress HEENT: Atraumatic, Normocephalic Lungs: Normal air movement Psych/Mental Status: Normal Affect Assessment/Plan Active Problems (Last Reviewed 01/17/20 @ 13:[address] Juan Arteaga MD) Tobacco abuse (Chronic) Chronic ulcer of left foot with fat layer exposed (Chronic) Osteomyelitis of left foot (Chronic) Diabetic ulcer of left foot (Chronic) Cerumen impaction (Acute) Patient stopped after about an hour because he felt immensely hot. No chills or fever just hot. Vitals stable on review. Denies any ear pressure or pain as well. He will continue HBO therapy as per his medical plan. Treatment Course Number Number of HBO Treatments 30 Ordered Treatment Course Number 1 Treatment # 3 Chamber # [id number] Chamber Type Monoplace HBO Diagnosis/Indication Diagnosis/Indication(s) for Left Diabetic Foot Ulcer,Standard/Conservative Hyperbaric Therapy Classification - Mancilla Grade 2 Grading (Diabetic Ulcer) [#2 right 5th metatarsal] Classification - Mancilla Grade 2 Grading (Diabetic Ulcer) [#1 Left Plantar medial] Classification - Mancilla Grade 3 Grading (Diabetic Ulcer) Diabetes - Detail Diabetes Diabetes Type II Diabetes Control Uncontrolled Left Extremity Ulcer, Other part of Foot Treatment Plan MARTITA (Atmospheric Absolute) 2 Number of Minutes 90 Number of Air Breaks 2
[2020-04-06 08:44] VITALS: BP 159/82; BP 176/74; PULSE 73; PULSE 93; RESP 20; RESP 22; TEMP 36.6; TEMP 36.7
[2020-04-06 09:50] LABS: Bedside Glucose 211 mg/dL (70-110)
[2020-04-06 15:41] LABS: Bedside Glucose 236 mg/dL (70-110)
[2020-04-06 15:41] LABS: Bedside Glucose 252 mg/dL (70-110)
[2020-04-07 08:21] LABS: Bedside Glucose 178 mg/dL (70-110)
[2020-04-07 11:01] LABS: Bedside Glucose 154 mg/dL (70-110)
[2020-04-07 11:22] VITALS: BP 146/71; BP 169/83; PULSE 105; PULSE 71; RESP 18; TEMP 36.6; TEMP 36.7
--- NOTE | 2020-04-07 16:16 | PCM.HBO.PN ---
History of Present Illness Date of Service: 04/07/20 Presenting Chief Complaint: Diabetic left foot ulceration, Mancilla Grade 3, with infection GEN SIM is a 65 year old currently undergoing hyperbaric oxygen therapy for Mancilla Grade 3 diabetic left foot ulceration with infection/osteomyelitis. Progress: This represents the 4th such session of hyperbaric oxygen therapy. Tolerance of hyperbaric oxygen therapy: Hyperbaric oxygen therapy was administered as per the facility's protocol. On emergence, his vitals were stable. He had bilateral ear tubes placed on 04 April 2020. Pre-and post blood glucose levels as documented. Past Medical History Chronic Problems (Last Reviewed 01/17/20 @ 13:[address] 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) Diabetes (Chronic) Type 2 diabetes mellitus (Chronic) Obstructive sleep apnea (Chronic) Uncontrolled diabetes mellitus (Chronic) Diabetic infection of left foot (Chronic) Osteomyelitis of great toe of left foot (Chronic) Morbid obesity due to excess calories (Chronic) Tobacco dependence due to cigarettes (Chronic) Diabetic neuropathy (Chronic) Hypertension (Chronic) 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) Allergies/Adverse Reactions: Allergies No Known Allergies Allergy (Verified 10/18/19 09:18) Home Medications: Ambulatory Orders Medication Instructions Recorded Calcium Carbonate [Calcium] 500 mg PO DAILY 06/23/17 Gabapentin [Neurontin] 300 mg PO TIDCM 06/23/17 Multivitamin [Multiple Vitamins] 1 ea PO DAILY 06/23/17 aspirin 81 mg tablet,delayed 81 mg PO DAILY 08/12/19 release atorvastatin 40 mg tablet 40 mg PO DAILY 10/18/19 bupropion HCl 150 mg 24 hr tablet, 150 mg PO BID tab 10/18/19 extended release lisinopril 10 mg tablet 10 mg PO DAILY 10/18/19 tamsulosin 0.4 mg capsule 0.4 mg PO DAILY@1730 cap 10/18/19 blood sugar diagnostic See Rx Instructions .ROUTE 10/28/19 .MEDSUPPLY #100 ea lancets 33 gauge See Rx Instructions .ROUTE 10/28/19 .MEDSUPPLY #100 ea Amoxicillin/Potassium Clav 1 ea PO BID #70 tab 01/26/20 [Augmentin 875-125 Tablet] Ciprofloxacin/Ciprofloxa HCl 500 mg PO BID #70 tbmp.24hr 01/26/20 [Ciprofloxacin ER 500 mg Tablet] insulin regular hum U-500 conc 135 unit SC TID #24 ml 02/01/20 Maternal Family History: Family History (Last Reviewed 10/18/19 @ 09:[address] Juan Arteaga MD) Father Myocardial infarction Heart disease Mother Kidney disease Diabetes Sister Asthma Breast cancer Hypertension Brother Alcoholism Melanoma Family History: Diabetes, Renal Disease - on dialysis Paternal Family History: Family History (Last Reviewed 10/18/19 @ 09:[address] Juan Arteaga MD) Father Myocardial infarction Heart disease Mother Kidney disease Diabetes Sister Asthma Breast cancer Hypertension Brother Alcoholism Melanoma Family History: Heart Disease Sibling Family History: Family History (Last Reviewed 10/18/19 @ 09:[address] Juan Arteaga MD) Father Myocardial infarction Heart disease Mother Kidney disease Diabetes Sister Asthma Breast cancer Hypertension Brother Alcoholism Melanoma Family History: Cancer - breast cancer in his sister Smoking Status: Heavy Smoker (>10/day) Tobacco Use: Cigarettes Physical Exam Vital Signs Temp Pulse Resp BP 98.0 F 105 H 18 146/71 H 04/07/20 11:22 04/07/20 11:22 04/07/20 11:22 04/07/20 11:22 General: Alert, Oriented x3, Cooperative, No apparent distress HEENT: TM's Clear - tubes in place b/l, EAC Clear Psych/Mental Status: Normal Affect, Appropriate Assessment/Plan Active Problems (Last Reviewed 01/17/20 @ 13:[address] Juan Arteaga MD) Tobacco abuse (Chronic) Chronic ulcer of left foot with fat layer exposed (Chronic) Osteomyelitis of left foot (Chronic) Diabetic ulcer of left foot (Chronic) Cerumen impaction (Acute) The patient tolerated hyperbaric oxygen treatment well. He will continue HBO therapy as per his medical plan. Treatment Course Number Number of HBO Treatments 30 Ordered Treatment Course Number 1 Treatment # 4 Chamber # [id number] Chamber Type Monoplace HBO Diagnosis/Indication Diagnosis/Indication(s) for Left Diabetic Foot Ulcer Hyperbaric Therapy Classification - Mancilla Grade 2 Grading (Diabetic Ulcer) [] Classification - [place]ancilla Grade 2 Grading (Diabetic Ulcer) [] Classification - [place] Grade 3 Grading (Diabetic Ulcer) Diabetes - Detail Diabetes Diabetes Type II Diabetes Control Uncontrolled Left Extremity Ulcer, Other part of Foot Treatment Plan MARTITA (Atmospheric Absolute) 2.0 Number of Minutes 90 Number of Air Breaks 2
[2020-04-10 09:45] LABS: Bedside Glucose 141 mg/dL (70-110)
[2020-04-10 11:13] VITALS: BP 143/69; BP 144/77; PULSE 103; PULSE 78; RESP 18; RESP 20; TEMP 35.7; TEMP 36
[2020-04-10 11:45] LABS: Bedside Glucose 120 mg/dL (70-110)
--- NOTE | 2020-04-10 16:41 | PCM.HBO.PN ---
History of Present Illness Date of Service: 04/10/20 Presenting Chief Complaint: Diabetic left foot ulceration, Mancilla Grade 3, with infection GEN SIM is a 65 year old currently undergoing hyperbaric oxygen therapy for Mancilla Grade 3 diabetic left foot ulceration with infection/osteomyelitis. Progress: This represents the 5th such session of hyperbaric oxygen therapy. Tolerance of hyperbaric oxygen therapy: Hyperbaric oxygen therapy was administered as per the facility's protocol. On emergence, his vitals were stable. He had bilateral ear tubes placed on 04 April 2020. Pre-treatment blood glucose was 141 and post-treatment blood glucose was 120. Past Medical History Chronic Problems (Last Reviewed 01/17/20 @ 13:[address] 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) Diabetes (Chronic) Type 2 diabetes mellitus (Chronic) Obstructive sleep apnea (Chronic) Uncontrolled diabetes mellitus (Chronic) Diabetic infection of left foot (Chronic) Osteomyelitis of great toe of left foot (Chronic) Morbid obesity due to excess calories (Chronic) Tobacco dependence due to cigarettes (Chronic) Diabetic neuropathy (Chronic) Hypertension (Chronic) 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) Allergies/Adverse Reactions: Allergies No Known Allergies Allergy (Verified 10/18/19 09:18) Home Medications: Ambulatory Orders Medication Instructions Recorded Calcium Carbonate [Calcium] 500 mg PO DAILY 06/23/17 Gabapentin [Neurontin] 300 mg PO TIDCM 06/23/17 Multivitamin [Multiple Vitamins] 1 ea PO DAILY 06/23/17 aspirin 81 mg tablet,delayed 81 mg PO DAILY 08/12/19 release atorvastatin 40 mg tablet 40 mg PO DAILY 10/18/19 bupropion HCl 150 mg 24 hr tablet, 150 mg PO BID tab 10/18/19 extended release lisinopril 10 mg tablet 10 mg PO DAILY 10/18/19 tamsulosin 0.4 mg capsule 0.4 mg PO DAILY@1730 cap 10/18/19 blood sugar diagnostic See Rx Instructions .ROUTE 10/28/19 .MEDSUPPLY #100 ea lancets 33 gauge See Rx Instructions .ROUTE 10/28/19 .MEDSUPPLY #100 ea Amoxicillin/Potassium Clav 1 ea PO BID #70 tab 01/26/20 [Augmentin 875-125 Tablet] Ciprofloxacin/Ciprofloxa HCl 500 mg PO BID #70 tbmp.24hr 01/26/20 [Ciprofloxacin ER 500 mg Tablet] insulin regular hum U-500 conc 135 unit SC TID #24 ml 02/01/20 Maternal Family History: Family History (Last Reviewed 10/18/19 @ 09:[address] Juan Arteaga MD) Father Myocardial infarction Heart disease Mother Kidney disease Diabetes Sister Asthma Breast cancer Hypertension Brother Alcoholism Melanoma Family History: Diabetes, Renal Disease - on dialysis Paternal Family History: Family History (Last Reviewed 10/18/19 @ 09:[address] Juan Arteaga MD) Father Myocardial infarction Heart disease Mother Kidney disease Diabetes Sister Asthma Breast cancer Hypertension Brother Alcoholism Melanoma Family History: Heart Disease Sibling Family History: Family History (Last Reviewed 10/18/19 @ 09:[address] Juan Arteaga MD) Father Myocardial infarction Heart disease Mother Kidney disease Diabetes Sister Asthma Breast cancer Hypertension Brother Alcoholism Melanoma Family History: Cancer - breast cancer in his sister Smoking Status: Heavy Smoker (>10/day) Tobacco Use: Cigarettes Physical Exam Vital Signs Temp Pulse Resp BP 96.3 F L 103 H 20 H 143/69 H 04/10/20 11:13 04/10/20 11:13 04/10/20 11:13 04/10/20 11:13 Assessment/Plan Treatment Course Number Number of HBO Treatments 30 Ordered Treatment Course Number 1 Treatment # 5 Chamber # [id number] Chamber Type Monoplace HBO Diagnosis/Indication Diagnosis/Indication(s) for Left Diabetic Foot Ulcer,Standard/Conservative Hyperbaric Therapy Classification - Mancilla Grade 2 Grading (Diabetic Ulcer) [] Classification - [place] Grade 2 Grading (Diabetic Ulcer) [] Classification - [place] Grade 3 Grading (Diabetic Ulcer) Diabetes - Detail Diabetes Diabetes Type II Diabetes Control Uncontrolled Left Extremity Ulcer, Other part of Foot Treatment Plan MARTITA (Atmospheric Absolute) 2 Number of Minutes 90 Number of Air Breaks 2 HBO Charges CPT - 38371 ICD-10 - E11.621, E11.628, M86.9
[2020-04-11 08:15] LABS: Bedside Glucose 213 mg/dL (70-110)
[2020-04-11 10:25] LABS: Bedside Glucose 208 mg/dL (70-110)
[2020-04-11 10:55] LABS: Bedside Glucose 221 mg/dL (70-110)
[2020-04-11 11:43] VITALS: BP 152/78; BP 159/96; PULSE 104; PULSE 78; RESP 18; TEMP 36.3; TEMP 36.6
--- NOTE | 2020-04-11 12:07 | PCM.HBO.PN ---
History of Present Illness Date of Service: 04/11/20 Presenting Chief Complaint: Diabetic left foot ulceration, Mancilla Grade 3, with infection GEN SIM is a 65 year old currently undergoing hyperbaric oxygen therapy for Mancilla Grade 3 diabetic left foot ulceration with infection/osteomyelitis. Progress: This represents the 6th such session of hyperbaric oxygen therapy. Tolerance of hyperbaric oxygen therapy: Hyperbaric oxygen therapy was administered as per the facility's protocol. The patient tolerated hyperbaric oxygen therapy well, without complaints or complications. Upon emergence from the hyperbaric chamber, his vitals were stable. The patient was discharged in good condition He had bilateral ear tubes placed on 04 April 2020. Pre-and post blood glucose levels as documented. The hyperbaric session was conducted for 90 minutes at 2 silas and with two 5-minute air breaks. Past Medical History Chronic Problems (Last Reviewed 01/17/20 @ 13:[address] 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) Diabetes (Chronic) Type 2 diabetes mellitus (Chronic) Obstructive sleep apnea (Chronic) Uncontrolled diabetes mellitus (Chronic) Diabetic infection of left foot (Chronic) Osteomyelitis of great toe of left foot (Chronic) Morbid obesity due to excess calories (Chronic) Tobacco dependence due to cigarettes (Chronic) Diabetic neuropathy (Chronic) Hypertension (Chronic) 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) Allergies/Adverse Reactions: Allergies No Known Allergies Allergy (Verified 10/18/19 09:18) Home Medications: Ambulatory Orders Medication Instructions Recorded Calcium Carbonate [Calcium] 500 mg PO DAILY 06/23/17 Gabapentin [Neurontin] 300 mg PO TIDCM 06/23/17 Multivitamin [Multiple Vitamins] 1 ea PO DAILY 06/23/17 aspirin 81 mg tablet,delayed 81 mg PO DAILY 08/12/19 release atorvastatin 40 mg tablet 40 mg PO DAILY 10/18/19 bupropion HCl 150 mg 24 hr tablet, 150 mg PO BID tab 10/18/19 extended release lisinopril 10 mg tablet 10 mg PO DAILY 10/18/19 tamsulosin 0.4 mg capsule 0.4 mg PO DAILY@1730 cap 10/18/19 blood sugar diagnostic See Rx Instructions .ROUTE 10/28/19 .MEDSUPPLY #100 ea lancets 33 gauge See Rx Instructions .ROUTE 10/28/19 .MEDSUPPLY #100 ea Amoxicillin/Potassium Clav 1 ea PO BID #70 tab 01/26/20 [Augmentin 875-125 Tablet] Ciprofloxacin/Ciprofloxa HCl 500 mg PO BID #70 tbmp.24hr 01/26/20 [Ciprofloxacin ER 500 mg Tablet] insulin regular hum U-500 conc 135 unit SC TID #24 ml 02/01/20 Maternal Family History: Family History (Last Reviewed 10/18/19 @ 09:[address] Juan Arteaga MD) Father Myocardial infarction Heart disease Mother Kidney disease Diabetes Sister Asthma Breast cancer Hypertension Brother Alcoholism Melanoma Family History: Diabetes, Renal Disease - on dialysis Paternal Family History: Family History (Last Reviewed 10/18/19 @ 09:[address] Juan Arteaga MD) Father Myocardial infarction Heart disease Mother Kidney disease Diabetes Sister Asthma Breast cancer Hypertension Brother Alcoholism Melanoma Family History: Heart Disease Sibling Family History: Family History (Last Reviewed 10/18/19 @ 09:[address] Juan Arteaga MD) Father Myocardial infarction Heart disease Mother Kidney disease Diabetes Sister Asthma Breast cancer Hypertension Brother Alcoholism Melanoma Family History: Cancer - breast cancer in his sister Smoking Status: Heavy Smoker (>10/day) Tobacco Use: Cigarettes Physical Exam Vital Signs Temp Pulse Resp BP 97.3 F L 104 H 18 152/78 H 04/11/20 11:43 04/11/20 11:43 04/11/20 11:43 04/11/20 11:43 General: Alert, Oriented x3, Cooperative, No apparent distress, Well developed, Well nourished HEENT: Atraumatic, PERRLA, EOMI, Normocephalic Lungs: Normal air movement Psych/Mental Status: Normal Affect, Appropriate, Alert and oriented to time, place, person, mood and affect Assessment/Plan The patient appears to be tolerating hyperbaric oxygen therapy well, which will be continued as per the patient's medical plan Treatment Course Number Number of HBO Treatments 40 Ordered Treatment Course Number 1 Treatment # 6 Chamber # 2 Chamber Type Monoplace HBO Diagnosis/Indication Diagnosis/Indication(s) for Left Diabetic Foot Ulcer,Standard/Conservative Hyperbaric Therapy Classification - Manc[place] Grade 2 Grading (Diabetic Ulcer) [] Classification - [place] Grade 2 Grading (Diabetic Ulcer) [] Classification - [place] Grade 3 Grading (Diabetic Ulcer) Diabetes - Detail Diabetes Diabetes Type II Diabetes Control Uncontrolled Left Extremity Ulcer, Other part of Foot Treatment Plan MARTITA (Atmospheric Absolute) 2 Number of Minutes 90 Number of Air Breaks 2
[2020-04-11 12:51] LABS: Bedside Glucose 233 mg/dL (70-110)
[2020-04-13 08:16] LABS: Bedside Glucose 162 mg/dL (70-110)
--- NOTE | 2020-04-13 10:04 | PCM.HBO.PN ---
History of Present Illness Date of Service: 04/13/20 Presenting Chief Complaint: Diabetic left foot ulceration, Mancilla Grade 3, with infection GEN SIM is a 65 year old currently undergoing hyperbaric oxygen therapy for Mancilla Grade 3 diabetic left foot ulceration with infection/osteomyelitis. Progress: This represents the 6th such session of hyperbaric oxygen therapy. Tolerance of hyperbaric oxygen therapy: Hyperbaric oxygen therapy was administered as per the facility's protocol at 2 MARTITA for 90 minutes with 2 air breaks.. On emergence, his vitals were stable and he was discharged in stable condition.. He had bilateral ear tubes placed on 04 April 2020. Pre-treatment blood glucose readings as documented Past Medical History Chronic Problems (Last Reviewed 01/17/20 @ 13:[address] 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) Diabetes (Chronic) Type 2 diabetes mellitus (Chronic) Obstructive sleep apnea (Chronic) Uncontrolled diabetes mellitus (Chronic) Diabetic infection of left foot (Chronic) Osteomyelitis of great toe of left foot (Chronic) Morbid obesity due to excess calories (Chronic) Tobacco dependence due to cigarettes (Chronic) Diabetic neuropathy (Chronic) Hypertension (Chronic) 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) Allergies/Adverse Reactions: Allergies No Known Allergies Allergy (Verified 10/18/19 09:18) Home Medications: Ambulatory Orders Medication Instructions Recorded Calcium Carbonate [Calcium] 500 mg PO DAILY 06/23/17 Gabapentin [Neurontin] 300 mg PO TIDCM 06/23/17 Multivitamin [Multiple Vitamins] 1 ea PO DAILY 06/23/17 aspirin 81 mg tablet,delayed 81 mg PO DAILY 08/12/19 release atorvastatin 40 mg tablet 40 mg PO DAILY 10/18/19 bupropion HCl 150 mg 24 hr tablet, 150 mg PO BID tab 10/18/19 extended release lisinopril 10 mg tablet 10 mg PO DAILY 10/18/19 tamsulosin 0.4 mg capsule 0.4 mg PO DAILY@1730 cap 10/18/19 blood sugar diagnostic See Rx Instructions .ROUTE 10/28/19 .MEDSUPPLY #100 ea lancets 33 gauge See Rx Instructions .ROUTE 10/28/19 .MEDSUPPLY #100 ea Amoxicillin/Potassium Clav 1 ea PO BID #70 tab 01/26/20 [Augmentin 875-125 Tablet] Ciprofloxacin/Ciprofloxa HCl 500 mg PO BID #70 tbmp.24hr 01/26/20 [Ciprofloxacin ER 500 mg Tablet] insulin regular hum U-500 conc 135 unit SC TID #24 ml 02/01/20 Maternal Family History: Family History (Last Reviewed 10/18/19 @ 09:[address] Juan Arteaga MD) Father Myocardial infarction Heart disease Mother Kidney disease Diabetes Sister Asthma Breast cancer Hypertension Brother Alcoholism Melanoma Family History: Diabetes, Renal Disease - on dialysis Paternal Family History: Family History (Last Reviewed 10/18/19 @ 09:[address] Juan Atreaga MD) Father Myocardial infarction Heart disease Mother Kidney disease Diabetes Sister Asthma Breast cancer Hypertension Brother Alcoholism Melanoma Family History: Heart Disease Sibling Family History: Family History (Last Reviewed 10/18/19 @ 09:[address] Juan Arteaga MD) Father Myocardial infarction Heart disease Mother Kidney disease Diabetes Sister Asthma Breast cancer Hypertension Brother Alcoholism Melanoma Family History: Cancer - breast cancer in his sister Smoking Status: Heavy Smoker (>10/day) Tobacco Use: Cigarettes Physical Exam Vital Signs Temp Pulse Resp BP 97.3 F L 104 H 18 152/78 H 04/11/20 11:43 04/11/20 11:43 04/11/20 11:43 04/11/20 11:43 General: Alert, Oriented x3, Cooperative, No apparent distress HEENT: Atraumatic, Normocephalic Lungs: Normal air movement Psych/Mental Status: Normal Affect Assessment/Plan The patient appears to be tolerating hyperbaric oxygen therapy well, which will be continued as per the patient's medical plan Treatment Course Number Number of HBO Treatments 40 Ordered Treatment Course Number 1 Treatment # 6 Chamber # 2 Chamber Type Monoplace HBO Diagnosis/Indication Diagnosis/Indication(s) for Left Diabetic Foot Ulcer,Standard/Conservative Hyperbaric Therapy Classification - [place] Grade 2 Grading (Diabetic Ulcer) [#2 right 5th metatarsal] Classification - [place] Grade 2 Grading (Diabetic Ulcer) [#1 Left Plantar medial] Classification - [place] Grade 3 Grading (Diabetic Ulcer) Diabetes - Detail Diabetes Diabetes Type II Diabetes Control Uncontrolled Left Extremity Ulcer, Other part of Foot Treatment Plan MARTITA (Atmospheric Absolute) 2 Number of Minutes 90 Number of Air Breaks 2
[2020-04-13 10:59] VITALS: BP 153/84; BP 155/75; PULSE 70; PULSE 93; RESP 18; RESP 20; TEMP 36.3; TEMP 37
[2020-04-13 11:21] LABS: Bedside Glucose 152 mg/dL (70-110)
[2020-04-14 08:15] LABS: Bedside Glucose 179 mg/dL (70-110)
[2020-04-14 10:40] LABS: Bedside Glucose 122 mg/dL (70-110)
[2020-04-14 11:57] VITALS: BP 135/85; BP 157/89; PULSE 80; PULSE 92; RESP 18; TEMP 36.8; TEMP 36.9
--- NOTE | 2020-04-14 15:48 | PCM.HBO.PN ---
History of Present Illness Date of Service: 04/14/20 Presenting Chief Complaint: Diabetic left foot ulceration, Manc[place] Grade 3, with infection GEN SIM is a 65 year old currently undergoing hyperbaric oxygen therapy for Manc[place] Grade 3 diabetic left foot ulceration with infection/osteomyelitis. Progress: This represents the 7th such session of hyperbaric oxygen therapy. Tolerance of hyperbaric oxygen therapy: Hyperbaric oxygen therapy was administered as per the facility's protocol at 2 MARTITA for 90 minutes with 2 air breaks.. On emergence, his vitals were stable and he was discharged in stable condition. He had bilateral ear tubes placed on 04 April 2020 and has been tolerating treatments well. Pre-treatment blood glucose readings as documented Past Medical History Chronic Problems (Last Reviewed 01/17/20 @ 13:[address] 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) Diabetes (Chronic) Type 2 diabetes mellitus (Chronic) Obstructive sleep apnea (Chronic) Uncontrolled diabetes mellitus (Chronic) Diabetic infection of left foot (Chronic) Osteomyelitis of great toe of left foot (Chronic) Morbid obesity due to excess calories (Chronic) Tobacco dependence due to cigarettes (Chronic) Diabetic neuropathy (Chronic) Hypertension (Chronic) 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) Allergies/Adverse Reactions: Allergies No Known Allergies Allergy (Verified 10/18/19 09:18) Home Medications: Ambulatory Orders Medication Instructions Recorded Calcium Carbonate [Calcium] 500 mg PO DAILY 06/23/17 Gabapentin [Neurontin] 300 mg PO TIDCM 06/23/17 Multivitamin [Multiple Vitamins] 1 ea PO DAILY 06/23/17 aspirin 81 mg tablet,delayed 81 mg PO DAILY 08/12/19 release atorvastatin 40 mg tablet 40 mg PO DAILY 10/18/19 bupropion HCl 150 mg 24 hr tablet, 150 mg PO BID tab 10/18/19 extended release lisinopril 10 mg tablet 10 mg PO DAILY 10/18/19 tamsulosin 0.4 mg capsule 0.4 mg PO DAILY@1730 cap 10/18/19 blood sugar diagnostic See Rx Instructions .ROUTE 10/28/19 .MEDSUPPLY #100 ea lancets 33 gauge See Rx Instructions .ROUTE 10/28/19 .MEDSUPPLY #100 ea Amoxicillin/Potassium Clav 1 ea PO BID #70 tab 01/26/20 [Augmentin 875-125 Tablet] Ciprofloxacin/Ciprofloxa HCl 500 mg PO BID #70 tbmp.24hr 01/26/20 [Ciprofloxacin ER 500 mg Tablet] insulin regular hum U-500 conc 135 unit SC TID #24 ml 02/01/20 Maternal Family History: Family History (Last Reviewed 10/18/19 @ 09:[address] Juan Arteaga MD) Father Myocardial infarction Heart disease Mother Kidney disease Diabetes Sister Asthma Breast cancer Hypertension Brother Alcoholism Melanoma Family History: Diabetes, Renal Disease - on dialysis Paternal Family History: Family History (Last Reviewed 10/18/19 @ 09:[address] Juan Arteaga MD) Father Myocardial infarction Heart disease Mother Kidney disease Diabetes Sister Asthma Breast cancer Hypertension Brother Alcoholism Melanoma Family History: Heart Disease Sibling Family History: Family History (Last Reviewed 10/18/19 @ 09:[address] Juan Arteaga MD) Father Myocardial infarction Heart disease Mother Kidney disease Diabetes Sister Asthma Breast cancer Hypertension Brother Alcoholism Melanoma Family History: Cancer - breast cancer in his sister Smoking Status: Heavy Smoker (>10/day) Tobacco Use: Cigarettes Alcohol: None Drugs: None Physical Exam Vital Signs Temp Pulse Resp BP 98.4 F 92 18 157/89 H 04/14/20 11:57 04/14/20 11:57 04/14/20 11:57 04/14/20 11:57 General: Alert, Oriented x3, Cooperative, No apparent distress Psych/Mental Status: Normal Affect, Appropriate Assessment/Plan Active Problems (Last Reviewed 01/17/20 @ 13:[address] 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) The patient appears to be tolerating hyperbaric oxygen therapy well, which will be continued as per the patient's medical plan Treatment Course Number Number of HBO Treatments 30 Ordered Treatment Course Number 1 Treatment # 8 Chamber # [id number] Chamber Type Monoplace HBO Diagnosis/Indication Diagnosis/Indication(s) for Left Diabetic Foot Ulcer Hyperbaric Therapy Classification - Manc[place] Grade 2 Grading (Diabetic Ulcer) [] Classification - [place] Grade 2 Grading (Diabetic Ulcer) [] Classification - [place] Grade 3 Grading (Diabetic Ulcer) Diabetes - Detail Diabetes Diabetes Type II Diabetes Control Uncontrolled Left Extremity Ulcer, Heel & Midfoot Treatment Plan MARTITA (Atmospheric Absolute) 2.0 Number of Minutes 90 Number of Air Breaks 2
[2020-04-17 08:55] LABS: Bedside Glucose 201 mg/dL (70-110)
--- NOTE | 2020-04-17 10:18 | PCM.HBO.PN ---
History of Present Illness Date of Service: 04/17/20 Presenting Chief Complaint: Diabetic left foot ulceration, Manc[place] Grade 3, with infection GEN SIM is a 65 year old currently undergoing hyperbaric oxygen therapy for [place] Grade 3 diabetic left foot ulceration with infection/osteomyelitis. Progress: This represents the 9th such session of hyperbaric oxygen therapy. Tolerance of hyperbaric oxygen therapy: Hyperbaric oxygen therapy was administered as per the facility's protocol at 2 MARTITA for 90 minutes with 2 air breaks.. On emergence, his vitals were stable and he was discharged in stable condition. He had bilateral ear tubes placed on 04 April 2020 and has been tolerating treatments well. Pre-treatment blood glucose readings as documented Past Medical History Chronic Problems (Last Reviewed 01/17/20 @ 13:[address] 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) Diabetes (Chronic) Type 2 diabetes mellitus (Chronic) Obstructive sleep apnea (Chronic) Uncontrolled diabetes mellitus (Chronic) Diabetic infection of left foot (Chronic) Osteomyelitis of great toe of left foot (Chronic) Morbid obesity due to excess calories (Chronic) Tobacco dependence due to cigarettes (Chronic) Diabetic neuropathy (Chronic) Hypertension (Chronic) 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) Allergies/Adverse Reactions: Allergies No Known Allergies Allergy (Verified 10/18/19 09:18) Home Medications: Ambulatory Orders Medication Instructions Recorded Calcium Carbonate [Calcium] 500 mg PO DAILY 06/23/17 Gabapentin [Neurontin] 300 mg PO TIDCM 06/23/17 Multivitamin [Multiple Vitamins] 1 ea PO DAILY 06/23/17 aspirin 81 mg tablet,delayed 81 mg PO DAILY 08/12/19 release atorvastatin 40 mg tablet 40 mg PO DAILY 10/18/19 bupropion HCl 150 mg 24 hr tablet, 150 mg PO BID tab 10/18/19 extended release lisinopril 10 mg tablet 10 mg PO DAILY 10/18/19 tamsulosin 0.4 mg capsule 0.4 mg PO DAILY@1730 cap 10/18/19 blood sugar diagnostic See Rx Instructions .ROUTE 10/28/19 .MEDSUPPLY #100 ea lancets 33 gauge See Rx Instructions .ROUTE 10/28/19 .MEDSUPPLY #100 ea Amoxicillin/Potassium Clav 1 ea PO BID #70 tab 01/26/20 [Augmentin 875-125 Tablet] Ciprofloxacin/Ciprofloxa HCl 500 mg PO BID #70 tbmp.24hr 01/26/20 [Ciprofloxacin ER 500 mg Tablet] insulin regular hum U-500 conc 135 unit SC TID #24 ml 02/01/20 Maternal Family History: Family History (Last Reviewed 10/18/19 @ 09:[address] Juan Arteaga MD) Father Myocardial infarction Heart disease Mother Kidney disease Diabetes Sister Asthma Breast cancer Hypertension Brother Alcoholism Melanoma Family History: Diabetes, Renal Disease - on dialysis Paternal Family History: Family History (Last Reviewed 10/18/19 @ 09:[address] Juan Arteaga MD) Father Myocardial infarction Heart disease Mother Kidney disease Diabetes Sister Asthma Breast cancer Hypertension Brother Alcoholism Melanoma Family History: Heart Disease Sibling Family History: Family History (Last Reviewed 10/18/19 @ 09:[address] Juan Arteaga MD) Father Myocardial infarction Heart disease Mother Kidney disease Diabetes Sister Asthma Breast cancer Hypertension Brother Alcoholism Melanoma Family History: Cancer - breast cancer in his sister Smoking Status: Heavy Smoker (>10/day) Tobacco Use: Cigarettes Alcohol: None Drugs: None Physical Exam Vital Signs Temp Pulse Resp BP 98.4 F 92 18 157/89 H 04/14/20 11:57 04/14/20 11:57 04/14/20 11:57 04/14/20 11:57 General: Alert, Oriented x3, Cooperative HEENT: Atraumatic, TM's Clear - Bilateral ear tubes intact Lungs: Clear to auscultation, Normal air movement Cardiovascular: Regular rate, Regular Rhythm Psych/Mental Status: Normal Affect, Appropriate Assessment/Plan The patient appears to be tolerating hyperbaric oxygen therapy well, which will be continued as per the patient's medical plan Treatment Course Number Number of HBO Treatments 30 Ordered Treatment Course Number 1 Treatment # 8 Chamber # [id number] Chamber Type Monoplace HBO Diagnosis/Indication Diagnosis/Indication(s) for Left Diabetic Foot Ulcer Hyperbaric Therapy Classification - [place] Grade 2 Grading (Diabetic Ulcer) [] Classification - [place] Grade 2 Grading (Diabetic Ulcer) [] Classification - [place] Grade 3 Grading (Diabetic Ulcer) Diabetes - Detail Diabetes Diabetes Type II Diabetes Control Uncontrolled Left Extremity Ulcer, Heel & Midfoot Treatment Plan MARTITA (Atmospheric Absolute) 2.0 Number of Minutes 90 Number of Air Breaks 2 [id number]
[2020-04-17 11:01] LABS: Bedside Glucose 171 mg/dL (70-110)
[2020-04-17 11:35] VITALS: BP 151/83; BP 162/76; PULSE 69; PULSE 88; RESP 18; RESP 20; TEMP 36.7; TEMP 36.9
[2020-04-18 08:46] LABS: Bedside Glucose 198 mg/dL (70-110)
[2020-04-18 10:56] LABS: Bedside Glucose 182 mg/dL (70-110)
[2020-04-18 11:38] VITALS: BP 146/63; BP 154/79; PULSE 103; PULSE 72; RESP 16; RESP 18; TEMP 36.6
--- NOTE | 2020-04-18 14:24 | PCM.HBO.PN ---
History of Present Illness Date of Service: 04/18/20 Presenting Chief Complaint: Diabetic left foot ulceration, Manc[place] Grade 3, with infection GEN SIM is a 65 year old currently undergoing hyperbaric oxygen therapy for [place] Grade 3 diabetic left foot ulceration with infection/osteomyelitis. Progress: This represents the 10th such session of hyperbaric oxygen therapy. Tolerance of hyperbaric oxygen therapy: Hyperbaric oxygen therapy was administered as per the facility's protocol at 2 MARTITA for 90 minutes with 2 air breaks.. On emergence from the hyperbaric chamber, his vitals were stable and he was discharged in stable condition. He had bilateral ear tubes placed on 04 April 2020 and has been tolerating treatments well. Pre- and post-treatment blood glucose readings as documented. Past Medical History Chronic Problems (Last Reviewed 01/17/20 @ 13:[address] 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) Diabetes (Chronic) Type 2 diabetes mellitus (Chronic) Obstructive sleep apnea (Chronic) Uncontrolled diabetes mellitus (Chronic) Diabetic infection of left foot (Chronic) Osteomyelitis of great toe of left foot (Chronic) Morbid obesity due to excess calories (Chronic) Tobacco dependence due to cigarettes (Chronic) Diabetic neuropathy (Chronic) Hypertension (Chronic) 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) Allergies/Adverse Reactions: Allergies No Known Allergies Allergy (Verified 10/18/19 09:18) Home Medications: Ambulatory Orders Medication Instructions Recorded Calcium Carbonate [Calcium] 500 mg PO DAILY 06/23/17 Gabapentin [Neurontin] 300 mg PO TIDCM 06/23/17 Multivitamin [Multiple Vitamins] 1 ea PO DAILY 06/23/17 aspirin 81 mg tablet,delayed 81 mg PO DAILY 08/12/19 release atorvastatin 40 mg tablet 40 mg PO DAILY 10/18/19 bupropion HCl 150 mg 24 hr tablet, 150 mg PO BID tab 10/18/19 extended release lisinopril 10 mg tablet 10 mg PO DAILY 10/18/19 tamsulosin 0.4 mg capsule 0.4 mg PO DAILY@1730 cap 10/18/19 blood sugar diagnostic See Rx Instructions .ROUTE 10/28/19 .MEDSUPPLY #100 ea lancets 33 gauge See Rx Instructions .ROUTE 10/28/19 .MEDSUPPLY #100 ea Amoxicillin/Potassium Clav 1 ea PO BID #70 tab 01/26/20 [Augmentin 875-125 Tablet] Ciprofloxacin/Ciprofloxa HCl 500 mg PO BID #70 tbmp.24hr 01/26/20 [Ciprofloxacin ER 500 mg Tablet] insulin regular hum U-500 conc 135 unit SC TID #24 ml 02/01/20 Maternal Family History: Family History (Last Reviewed 10/18/19 @ 09:[address] Juan Arteaga MD) Father Myocardial infarction Heart disease Mother Kidney disease Diabetes Sister Asthma Breast cancer Hypertension Brother Alcoholism Melanoma Family History: Diabetes, Renal Disease - on dialysis Paternal Family History: Family History (Last Reviewed 10/18/19 @ 09:[address] Juan Arteaga MD) Father Myocardial infarction Heart disease Mother Kidney disease Diabetes Sister Asthma Breast cancer Hypertension Brother Alcoholism Melanoma Family History: Heart Disease Sibling Family History: Family History (Last Reviewed 10/18/19 @ 09:[address] Juan Arteaga MD) Father Myocardial infarction Heart disease Mother Kidney disease Diabetes Sister Asthma Breast cancer Hypertension Brother Alcoholism Melanoma Family History: Cancer - breast cancer in his sister Smoking Status: Heavy Smoker (>10/day) Tobacco Use: Cigarettes Alcohol: None Drugs: None Physical Exam Vital Signs Temp Pulse Resp BP 97.8 F 103 H 18 154/79 H 04/18/20 11:38 04/18/20 11:38 04/18/20 11:38 04/18/20 11:38 General: Alert, Oriented x3, Cooperative, No apparent distress, Well developed, Well nourished HEENT: Atraumatic, PERRLA, EOMI, Normocephalic Lungs: Normal air movement Psych/Mental Status: Normal Affect, Appropriate, Alert and oriented to time, place, person, mood and affect Assessment/Plan The patient appears to be tolerating hyperbaric oxygen therapy well, which will be continued as per the patient's medical plan. Treatment Course Number Number of HBO Treatments 40 Ordered Treatment Course Number 1 Treatment # 10 Chamber # 2 Chamber Type Monoplace HBO Diagnosis/Indication Diagnosis/Indication(s) for Left Diabetic Foot Ulcer Hyperbaric Therapy Classification - [place] Grade 2 Grading (Diabetic Ulcer) [] Classification - [place] Grade 2 Grading (Diabetic Ulcer) [] Classification - [place] Grade 3 Grading (Diabetic Ulcer) Diabetes - Detail Diabetes Diabetes Type II Diabetes Control Uncontrolled Left Extremity Ulcer, Other part of Foot Treatment Plan MARTITA (Atmospheric Absolute) 2 Number of Minutes 90 Number of Air Breaks 2
[2020-04-19 14:36] VITALS: BP 141/63; PULSE 95; RESP 18; TEMP 36.7; BMI 42.8
--- NOTE | 2020-04-19 16:26 | PCM.WC.PN ---
(1) Chronic ulcer of left foot with necrosis of bone Status: Chronic Code(s): L97.524 - Non-pressure chronic ulcer of other part of left foot with necrosis of bone (2) Tobacco abuse Status: Chronic Code(s): Z72.0 - Tobacco use (3) Osteomyelitis of left foot Status: Chronic Qualifiers: Code(s): M86.9 - Osteomyelitis, unspecified (4) Delayed wound healing Status: Chronic Code(s): T14.8XXD - Other injury of unspecified body region, subsequent encounter (5) Polyneuropathy due to type 2 diabetes mellitus Status: Chronic Code(s): E11.42 - Type 2 diabetes mellitus with diabetic polyneuropathy (6) Left ankle pain Status: Acute Qualifiers: Chronicity: chronic Qualified Code(s): M25.572 - Pain in left ankle and joints of left foot; G89.29 - Other chronic pain Code(s): M25.572 - Pain in left ankle and joints of left foot Type of Wound Date of Service: 04/19/20 Chief Complaint: Diabetic left foot ulceration, Mancilla Grade 3, with infection History of Wound: This 65-year-old male with multiple comorbidities was seen today for left foot ulcer. His left foot ulcer onset was 12-07-2019. He is previously known to me and had a left transmetatarsal amputation performed last year for treatment of limb threatening infection. That has since been healed. He has been changing the dressing daily with hydrogel and offloads with a cam walker boot and surgical shoes. He admits that he could keep weight off is better if he uses knee roller however he needs to get his knee roller fixed prior to using it again. He denies fever, chill, nausea, vomiting. He denies odor or redness. He has been washing with the antimicrobial soap as advised. He saw vascular surgery reports that he has some additional procedure scheduled. He is also treated by infectious disease and took Augmentin and ciprofloxacin for treatment of his Mancilla grade 3 and osteomyelitis. He has had progressive exposure of capsular tissue with intermittent infections consistent with a correct during grade 3 ulcer. He is considering hyperbaric oxygen therapy as recommended. He denies claustrophobia. He has been participating the hyperbaric oxygen therapy program. Progress of Wound: Left stable - Physical Exam Vital Signs Temp Pulse Resp BP 98.1 F 95 18 141/63 H 04/19/20 14:36 04/19/20 14:36 04/19/20 14:36 04/19/20 14:36 General: Alert, Oriented x3, Cooperative, No apparent distress HEENT: Atraumatic Extremities: No cyanosis, Capillary Refill Less than 3 Seconds, No Calf Tenderness, Diminished Peripheral Pulses, Edema, - - Left transmetatarsal head resection Skin: Ulcer/ Wound - No purulence, erythema, streaking, odor, infection. Significant peripheral callus continues. There is no deep probing noted today. Wound Measurements and Assessment WC - Nurse 1 - General Ulcer Measurement Start: 03/29/20 14:24 Freq: Status: Active Protocol: Activity Type Activity Date Activity User E-Sign Co-Sign Detail Recorded Client Recorded Date Recorded By Document 04/19/20 14:36 DANA [id number] 04/19/20 14:44 DL 04/19/20 14:36 Wound Center Nurse 1 [Ulcer Assessment] #1 Left Plantar medial -Current Size (cm) - Length 1.7 -Current Size (cm) - Width 1.8 -Current Size (cm) - Depth 0.5 -Total Square Cm 3.06 -Photo Taken No -Exudate Amt Small -Exudate Type Serosanguineous -Wound Margin Thickened -Granulation Amt Large (67-100%) -Granulation Quality [place] -Necrosis Amt Small (1-33%) -Necrotic Tissue Type Adherent Slough -Structure Exposed N/A -Texture (Maria M-wound Skin Appearance) Callus, Localized Edema ,Scarring -Moisture (Maria M-wound Skin Appearance Weeping,Dry/ ) Scaly -Color (Maria M-wound Skin Appearance) Hemosiderin Staining -Temperature (Maria M-wound Skin No Abnormality Appearance) (Pt Warm) -Tenderness on Palpation (Maria M-wound No Skin Appearance) -Ulcer Cleansing Wound Cleanser -Foul Odor after Cleansing No -Anesthetic Used 4% Lidocaine Solution [Edema Assessment] -Left Calf (cm) 45 -Left Ankle (cm) 26.5 WC - Nurse 2 - General Ulcer CM Notes Start: 03/29/20 14:24 Freq: Status: Active Protocol: Activity Type Activity Date Activity User E-Sign Co-Sign Detail Recorded Client Recorded Date Recorded By Document 04/19/20 15:05 [email or web address] [id number] 04/19/20 15:07 04/19/20 15:05 Wound Center Nurse 2 [Procedure/Treatment] #1 Left Plantar medial -Time 15:05 -Correct Patient Yes -Correct Side, Site, Position Yes -Correct Procedure Yes -Procedure Performed Yes -Type of Procedure Debridement -Clinical Debridement Subcutaneous -Post Debridement Size (cm) - Length 1.6 -Post Debridement Size (cm) - Width 2.2 -Post Debridement Size (cm) - Depth 0.6 -Total Square (cm) 3.52 -Wound/Ulcer Outcome Not Healed -Ulcer Cleansing Rinsed/ Irrigated with Saline -Foul Odor after Cleansing No -Bioengineered Tissue No -Bleeding Controlled with Pressure -Offloading Yes -Type of Offloading Camwalker -Treatment Response Procedure Tolerated Well [See Physician Procedure note for Specifics] Pain Scale: 0-10 Numeric [Pain] -Is Patient Pain Free? Yes Musculoskeletal: No Tenderness to Palpation of Joints or Extremities, Muscle Wasting Neurological: - - Lack of normal epicritic sensation via light touch Psych/Mental Status: Normal Affect, Appropriate Debridement Note Post-Debridement Measurements/Treatment WC - Nurse 2 - General Ulcer CM Notes Start: 03/29/20 14:24 Freq: Status: Active Protocol: Activity Type Activity Date Activity User E-Sign Co-Sign Detail Recorded Client Recorded Date Recorded By Document 03/29/20 15:29 [id number] 03/29/20 15:30 Document 04/05/20 11:36 [id number] 04/05/20 11:37 Document 04/19/20 15:05 [id number] 04/19/20 15:07 03/29/20 04/05/20 04/19/20 15:29 11:36 15:05 Wound Center Nurse 2 #1 Left Plantar medial -Time 15:30 11:36 15:05 -Correct Patient Yes Yes Yes -Correct Side, Site, Position Yes Yes Yes -Correct Procedure Yes Yes Yes -Procedure Performed Yes Yes Yes -Type of Procedure Debridement Debridement Debridement -Clinical Debridement Subcutaneous Subcutaneous Subcutaneous -Post Debridement Size (cm) - Length 1.8 1.8 1.6 -Post Debridement Size (cm) - Width 2.0 1.8 2.2 -Post Debridement Size (cm) - Depth 0.5 0.5 0.6 -Total Square (cm) 3.60 3.24 3.52 -Wound/Ulcer Outcome Not Healed Not Healed Not Healed -Ulcer Cleansing Rinsed/ Rinsed/ Rinsed/ Irrigated with Irrigated with Irrigated with Saline Saline Saline -Foul Odor after Cleansing No No No -Bioengineered Tissue No No No -Bleeding Controlled with Pressure Pressure Pressure -Offloading No Yes Yes -Type of Offloading Camwalker Camwalker -Treatment Response Procedure Procedure Procedure Tolerated Well Tolerated Well Tolerated Well Pain Scale: 0-10 Numeric Is Patient Pain Free? Yes Yes Yes Wound debrided: plantar medial foot Laterality: Left Wound Grade/Stage: grade 3 Type of Debridement: Selective debridement Anesthesia Used: 5% Lidocaine Gel Depth: in the subcutaneous layer Percentage of wound debrided: 100 Instrument Used: #15 blade Tissue Removed: fibrous, devitalized subcutaneous, biofilm, slough, peripheral callous Severity: Fat Layer Exposed Amount of bleeding with debridement: Mild Bleeding Controlled with: Pressure Patient tolerated procedure well Assessment/Plan Assessment: Left plantar medial foot ulcer, Mancilla Grade 3. Chronic osteomyelitis left foot is treated medically at this time. Post-left transmetatarsal amputation. Diabetes mellitus with neuropathy that is uncontrolled. Morbid obesity. Obstructive sleep apnea. Renal insufficiency, stage 2. Hypertension. Hyperlipidemia Plan: I reviewed and discussed his case. Subcutaneous excisional debridement was performed as noted in the clinical panel to the left foot. The large peripheral callus was also debrided. To continue to change dressing daily with hydrogel to the left foot. I would like to consider advanced wound healing product application, epi-fix, and this will be considered after the quality of the left foot tissue has improved. Prior authorization has been initiated and he previously deferred. He is amendable to consider an application and a prior authorization will need to be completed again. Keep strict weight off of the sites of the left cam walker boot. He was encouraged to utilize the knee roller. Previous dual density Plastizote liners have been added to relieve the sites at further pressure. Due to the amount of callus formation I am concerned that he still has moderate friction and force applied to the site. I discussed other offloading techniques such as using a walker or a knee roller. He would like to proceed with getting his knee roller adjusted and fixed this week and using that. I offered him a total contact cast with a walker portion that is designed specifically for people with a transmetatarsal amputation. He understands he will need to keep this intact for a week at a time and can still go through hyperbaric oxygen therapy. This cast will be ordered. We can also consider doing a gastrocnemius recession or any Achilles tendon lengthening to reduce his plantarflexion progression. His noninvasive vascular studies were reviewed from which were normal and intervention was previously not recommended. I advised him to follow-up with all of Dr. Bonilla's recommendations to optimize his healing process. He has recently been seen and intervention is planned for arterial optimization. An updated bilateral duplex was also recommended to help with planning. I recommend an updated left foot x-ray due to the increased depth of 0.7 cm at a recent prior visit. This was performed at the [facility] center in 01-17-2020. The right foot does not have any fractures, dislocation, foreign body, osseous destruction, soft tissue emphysema. The left foot does not have any fracture, dislocation, foreign body, alfred osseous destruction, soft tissue emphysema either however there is a subtle area of radiolucency to the first metatarsal. Given his deeper ulcer status there is a concern of osteomyelitis and muscular infection involvement with progression and now exposed muscle tissue in combination with his overall delaying healing even though he has been on oral antibiotics for medical treatment of chronic osteomyelitis. His hemoglobin A1c was 13 in 2019 I would like to get this updated. An order was provided. His elevated glucose levels are significantly impairing his healing and I recommend he follows up with a asset protection manager to better control his diet. To continue to follow-up as advised. He is currently making adjustments with his eating habits. He has been following up with nutritional services and had made several lifestyle changes. He also follows up with wardrobe specialty worker, Dr. Arteaga who is working with him to reduce his hemoglobin A1c with medication and behavioral changes. His other labs were reviewed including CBC and CMP. WBC of 12.4 is noted. ESR was updated at 54 and C-reactive protein was 14.3. Smoking cessation was discussed in detail and he was advised on the healing impairment associated with this. To continue with his smoking cessation program. I also recommend discontinuation of nicotine products for this also contributes to small vessel contraction. His cultures are reviewed previously, and multi-organism growth including Klebsiella oxytoca, strep viridans, corynebacterium striatum, Enterococcus faecalis. He has continued with daily cleansing with antimicrobial soap. I previously recommended an antibiotic, and a prescription for Augmentin and ciprofloxacin were provided. I also recommend infectious disease referral for Mancilla grade 3 ulcer and osteomyelitis due to his subtle x-ray findings and progressive ulcer deterioration in the left foot there is a concern of chronic osteomyelitis. He was seen by Dr. Pathak, infectious disease specialist, and a 6-week course will be planned for treatment of osteomyelitis. To complete this course. Input from infectious diseases greatly appreciated. This patient is also a candidate for hyperbaric oxygen therapy and this was discussed at length again today. He did not have any gross abnormalities or acute pathology on his chest x-ray or EKG. These were without abnormalities. He is an appropriate hyperbaric oxygen therapy candidate and he has been cleared. He underwent 1 session so far. The indication, benefits, risk, complications, anticipated healing time management with his adjunctive advanced hyperbaric oxygen therapy was discussed. He understands the requirements including daily sessions and complete smoking cessation. Compliance is imperative during this time. Clearance by other wound care center providers have greatly appreciated. It is noted he had recent in her cecum buildup. This was subsequently cleared and he had a tube placed. His ankle discomfort from within the past couple weeks is noted and I recommend updating an x-ray. An order was provided today. I answered all of his questions today.
[2020-04-20 08:41] LABS: Bedside Glucose 228 mg/dL (70-110)
--- NOTE | 2020-04-20 08:52 | PCM.HBO.PN ---
History of Present Illness Date of Service: 04/20/20 Presenting Chief Complaint: Diabetic left foot ulceration, Mancilla Grade 3, with infection GEN SIM is a 65 year old currently undergoing hyperbaric oxygen therapy for Mancilla Grade 3 diabetic left foot ulceration with infection/osteomyelitis. Progress: This represents the 11th such session of hyperbaric oxygen therapy. Tolerance of hyperbaric oxygen therapy: Hyperbaric oxygen therapy was administered as per the facility's protocol at 2 MARTITA for 90 minutes with 2 air breaks.. On emergence from the hyperbaric chamber, his vitals were stable and he was discharged in stable condition. He had bilateral ear tubes placed on 04 April 2020 and has been tolerating treatments well. Pre- and post-treatment blood glucose readings as documented. Past Medical History Chronic Problems (Last Reviewed 01/17/20 @ 13:[address] 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) Diabetes (Chronic) Type 2 diabetes mellitus (Chronic) Obstructive sleep apnea (Chronic) Uncontrolled diabetes mellitus (Chronic) Diabetic infection of left foot (Chronic) Osteomyelitis of great toe of left foot (Chronic) Morbid obesity due to excess calories (Chronic) Tobacco dependence due to cigarettes (Chronic) Diabetic neuropathy (Chronic) Hypertension (Chronic) 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) Allergies/Adverse Reactions: Allergies No Known Allergies Allergy (Verified 10/18/19 09:18) Home Medications: Ambulatory Orders Medication Instructions Recorded Calcium Carbonate [Calcium] 500 mg PO DAILY 06/23/17 Gabapentin [Neurontin] 300 mg PO TIDCM 06/23/17 Multivitamin [Multiple Vitamins] 1 ea PO DAILY 06/23/17 aspirin 81 mg tablet,delayed 81 mg PO DAILY 08/12/19 release atorvastatin 40 mg tablet 40 mg PO DAILY 01/27/20 bupropion HCl 150 mg 24 hr tablet, 150 mg PO BID tab 10/18/19 extended release lisinopril 10 mg tablet 10 mg PO DAILY 10/18/19 tamsulosin 0.4 mg capsule 0.4 mg PO DAILY@1730 cap 10/18/19 blood sugar diagnostic See Rx Instructions .ROUTE 10/28/19 .MEDSUPPLY #100 ea lancets 33 gauge See Rx Instructions .ROUTE 10/28/19 .MEDSUPPLY #100 ea Amoxicillin/Potassium Clav 1 ea PO BID #70 tab 01/26/20 [Augmentin 875-125 Tablet] Ciprofloxacin/Ciprofloxa HCl 500 mg PO BID #70 tbmp.24hr 01/26/20 [Ciprofloxacin ER 500 mg Tablet] insulin regular hum U-500 conc 135 unit SC TID #24 ml 02/01/20 Maternal Family History: Family History (Last Reviewed 10/18/19 @ 09:[address] Juan Arteaga MD) Father Myocardial infarction Heart disease Mother Kidney disease Diabetes Sister Asthma Breast cancer Hypertension Brother Alcoholism Melanoma Family History: Diabetes, Renal Disease - on dialysis Paternal Family History: Family History (Last Reviewed 10/18/19 @ 09:[address] Juan Arteaga MD) Father Myocardial infarction Heart disease Mother Kidney disease Diabetes Sister Asthma Breast cancer Hypertension Brother Alcoholism Melanoma Family History: Heart Disease Sibling Family History: Family History (Last Reviewed 10/18/19 @ 09:[address] Juan Arteaga MD) Father Myocardial infarction Heart disease Mother Kidney disease Diabetes Sister Asthma Breast cancer Hypertension Brother Alcoholism Melanoma Family History: Cancer - breast cancer in his sister Smoking Status: Heavy Smoker (>10/day) Tobacco Use: Cigarettes Alcohol: None Drugs: None Physical Exam Vital Signs Temp Pulse Resp BP 98.1 F 95 18 141/63 H 04/19/20 14:36 04/19/20 14:36 04/19/20 14:36 04/19/20 14:36 General: Alert, Oriented x3, Cooperative, No apparent distress HEENT: Atraumatic, Normocephalic Lungs: Normal air movement Psych/Mental Status: Normal Affect Assessment/Plan Active Problems (Last Reviewed 01/17/20 @ 13:[address] 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 Treatment Course Number Number of HBO Treatments 40 Ordered Treatment Course Number 1 Treatment # 11 Chamber # 2 Chamber Type Monoplace HBO Diagnosis/Indication Diagnosis/Indication(s) for Left Diabetic Foot Ulcer Hyperbaric Therapy Classification - Mancilla Grade 2 Grading (Diabetic Ulcer) [#2 right 5th metatarsal] Classification - Mancilla Grade 2 Grading (Diabetic Ulcer) [#1 Left Plantar medial] Classification - Mancilla Grade 3 Grading (Diabetic Ulcer) Diabetes - Detail Diabetes Diabetes Type II Diabetes Control Uncontrolled Left Extremity Ulcer, Other part of Foot Treatment Plan MARTITA (Atmospheric Absolute) 2 Number of Minutes 90 Number of Air Breaks 2 HBO Supervision.
[2020-04-20 09:18] VITALS: BP 150/71; BP 168/83; PULSE 73; PULSE 83; RESP 20; RESP 22; TEMP 36.4
[2020-04-20 10:56] LABS: Bedside Glucose 206 mg/dL (70-110)
--- NOTE | 2020-04-20 15:10 | RAD_ITS ---
STUDY: X-RAY - LEFT ANKLE REASON FOR EXAM: Male, 65 years old. LEFT ANKLE PAIN AND SWELLING, REDNESS AND HOT TO TOUCH. NO KNOWN INJURY. PATIENT HAS DIABETES. LOST HIS TOES ON THIS FOOT. TECHNIQUE: 3 view(s) of the ankle. COMPARISON: None. FINDINGS: Normal visualized distal tibia and fibula. Avulsion fracture medial malleolus. Normal tibiotalar articulation and ankle mortise. Normal visualized talus and calcaneus. The visualized subtalar, talonavicular, calcaneocuboid and tarsal articulations are normal. Medial soft tissue swelling. RAD/Ankle min 3 Views IMPRESSION: Avulsion fracture medial malleolus age indeterminate and soft tissue swelling Electronically Signed: Nikolay Ramires MD at 20:46 EDT , Service support ,
[2020-04-20 18:21] LABS: Albumin, Serum 3.1 g/dL (3.2-5.0); BUN 10 mg/dL (7-18); BUN/Creat Ratio 12.7 RATIO (10-20); Calcium,Total 8.8 mg/dL (8.5-10.1); Chloride 107 mmol/L (98-107); Creatinine, Serum 0.79 mg/dL (0.70-1.30); EST Glomerular Filtration Rate 105 mL/min (>60); Est Glom Filt Rate - Afr Amer 128 mL/min (>60); Estimated Creatinine Clearance 106.76 ml/min; Glucose 156 mg/dL (74-106); Phosphorus 3.3 mg/dL (2.5-4.9); Potassium 4.1 mmol/L (3.5-5.1); Sodium Level 140 mmol/L (136-145)
[2020-04-21 08:40] LABS: Bedside Glucose 92 mg/dL (70-110)
[2020-04-21 08:50] LABS: Bedside Glucose 139 mg/dL (70-110)
[2020-04-21 10:56] LABS: Bedside Glucose 175 mg/dL (70-110)
--- NOTE | 2020-04-21 11:27 | PCM.HBO.PN ---
History of Present Illness Date of Service: 04/21/20 Presenting Chief Complaint: Diabetic left foot ulceration, Mancilla Grade 3, with infection GEN SIM is a 65 year old currently undergoing hyperbaric oxygen therapy for Mancilla Grade 3 diabetic left foot ulceration with infection/osteomyelitis. Progress: This represents the 12th such session of hyperbaric oxygen therapy. Tolerance of hyperbaric oxygen therapy: Hyperbaric oxygen therapy was administered as per the facility's protocol at 2 MARTITA for 90 minutes with 2 air breaks.. On emergence from the hyperbaric chamber, his vitals were stable and he was discharged in stable condition. He had bilateral ear tubes placed on 04 April 2020 and has been tolerating treatments well. Pre- and post-treatment blood glucose readings as documented. Past Medical History Chronic Problems (Last Reviewed 01/17/20 @ 13:[address] 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) Diabetes (Chronic) Type 2 diabetes mellitus (Chronic) Obstructive sleep apnea (Chronic) Uncontrolled diabetes mellitus (Chronic) Diabetic infection of left foot (Chronic) Osteomyelitis of great toe of left foot (Chronic) Morbid obesity due to excess calories (Chronic) Tobacco dependence due to cigarettes (Chronic) Diabetic neuropathy (Chronic) Hypertension (Chronic) 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) Allergies/Adverse Reactions: Allergies No Known Allergies Allergy (Verified 10/18/19 09:18) Home Medications: Ambulatory Orders Medication Instructions Recorded Calcium Carbonate [Calcium] 500 mg PO DAILY 06/23/17 Gabapentin [Neurontin] 300 mg PO TIDCM 06/23/17 Multivitamin [Multiple Vitamins] 1 ea PO DAILY 06/23/17 aspirin 81 mg tablet,delayed 81 mg PO DAILY 08/12/19 release atorvastatin 40 mg tablet 40 mg PO DAILY 10/18/19 bupropion HCl 150 mg 24 hr tablet, 150 mg PO BID tab 10/18/19 extended release lisinopril 10 mg tablet 10 mg PO DAILY 10/18/19 tamsulosin 0.4 mg capsule 0.4 mg PO DAILY@1730 cap 10/18/19 blood sugar diagnostic See Rx Instructions .ROUTE 10/28/19 .MEDSUPPLY #100 ea lancets 33 gauge See Rx Instructions .ROUTE 10/28/19 .MEDSUPPLY #100 ea Amoxicillin/Potassium Clav 1 ea PO BID #70 tab 01/26/20 [Augmentin 875-125 Tablet] Ciprofloxacin/Ciprofloxa HCl 500 mg PO BID #70 tbmp.24hr 01/26/20 [Ciprofloxacin ER 500 mg Tablet] insulin regular hum U-500 conc 135 unit SC TID #24 ml 02/01/20 Maternal Family History: Family History (Last Reviewed 10/18/19 @ 09:[address] Juan Arteaga MD) Father Myocardial infarction Heart disease Mother Kidney disease Diabetes Sister Asthma Breast cancer Hypertension Brother Alcoholism Melanoma Family History: Diabetes, Renal Disease - on dialysis Paternal Family History: Family History (Last Reviewed 10/18/19 @ 09:[address] Juan Arteaga MD) Father Myocardial infarction Heart disease Mother Kidney disease Diabetes Sister Asthma Breast cancer Hypertension Brother Alcoholism Melanoma Family History: Heart Disease Sibling Family History: Family History (Last Reviewed 10/18/19 @ 09:[address] Juan Arteaga MD) Father Myocardial infarction Heart disease Mother Kidney disease Diabetes Sister Asthma Breast cancer Hypertension Brother Alcoholism Melanoma Family History: Cancer - breast cancer in his sister Smoking Status: Heavy Smoker (>10/day) Tobacco Use: Cigarettes Alcohol: None Drugs: None Physical Exam Vital Signs Temp Pulse Resp BP 97.6 F L 83 22 H 150/71 H 04/20/20 09:18 04/20/20 09:18 04/20/20 09:18 04/20/20 09:18 General: Alert, Oriented x3, Cooperative, No apparent distress Psych/Mental Status: Normal Affect, Appropriate Assessment/Plan Active Problems (Last Reviewed 01/17/20 @ 13:[address] 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 Treatment Course Number Number of HBO Treatments 40 Ordered Treatment Course Number 1 Treatment # 11 Chamber # [id number] Chamber Type Monoplace HBO Diagnosis/Indication Diagnosis/Indication(s) for Left Diabetic Foot Ulcer,Standard/Conservative Hyperbaric Therapy Classification - Mancilla Grade 2 Grading (Diabetic Ulcer) [] Classification - [place] Grade 2 Grading (Diabetic Ulcer) [] Classification - [place] Grade 3 Grading (Diabetic Ulcer) Diabetes - Detail Diabetes Diabetes Type II Diabetes Control Uncontrolled Left Extremity Ulcer, Other part of Foot Treatment Plan MARTITA (Atmospheric Absolute) 2 Number of Minutes 90 Number of Air Breaks 2
[2020-04-21 16:42] VITALS: BP 152/80; BP 159/81; PULSE 69; PULSE 96; RESP 18; TEMP 36.8; TEMP 36.9
== END 2020-04-21 23:59 ==
LOC: WC 08:30
PROVIDERS: Internal Medicine Nephrology; PCP Family Medicine Geriatric Medicine; Referring Provider Podiatrist; Visit Provider Podiatrist
DX: L97.524 Non-pressure chronic ulcer of other part of left foot with necrosis of bone (principal); E11.621 Type 2 diabetes mellitus with foot ulcer; L97.523 Non-pressure chronic ulcer of other part of left foot with necrosis of muscle; L97.522 Non-pressure chronic ulcer of other part of left foot with fat layer exposed; E11.69 Type 2 diabetes mellitus with other specified complication; M86.672 Other chronic osteomyelitis, left ankle and foot; E11.628 Type 2 diabetes mellitus with other skin complications; L08.9 Local infection of the skin and subcutaneous tissue, unspecified; E11.22 Type 2 diabetes mellitus with diabetic chronic kidney disease; N18.2 Chronic kidney disease, stage 2 (mild); I12.9 Hypertensive chronic kidney disease with stage 1 through stage 4 chronic kidney disease, or unspecified chronic kidney disease; E11.42 Type 2 diabetes mellitus with diabetic polyneuropathy; E11.65 Type 2 diabetes mellitus with hyperglycemia; G47.33 Obstructive sleep apnea (adult) (pediatric); G89.29 Other chronic pain; E78.5 Hyperlipidemia, unspecified; F17.210 Nicotine dependence, cigarettes, uncomplicated; E66.01 Morbid (severe) obesity due to excess calories; Z68.41 Body mass index [BMI] 40.0-44.9, adult; Z22.9 Carrier of infectious disease, unspecified; Z79.82 Long term (current) use of aspirin; Z79.4 Long term (current) use of insulin
CPT/HCPCS: 11042; 36415; 73610; 80069; 82962; 99183; 99212; G0277; G0463

== ENCOUNTER 2020-05-01 13:29 | Outpatient (RCR) | payer MEDICARE, SELFPAY ==
[2020-04-26 11:02] VITALS: BMI 42.8
== END 2020-05-22 23:59 ==
LOC: DC 13:29
PROVIDERS: PCP Family Medicine Geriatric Medicine; Visit Provider Podiatrist
DX: Z71.3 Dietary counseling and surveillance (principal); E66.9 Obesity, unspecified; Z68.41 Body mass index [BMI] 40.0-44.9, adult; E11.42 Type 2 diabetes mellitus with diabetic polyneuropathy
CPT/HCPCS: 97803

== ENCOUNTER 2020-05-03 10:45 | Outpatient (RCR) | payer BC, SELFPAY ==
[2020-04-19 14:36] VITALS: BMI 42.8
[2020-04-22 00:27] VITALS: BP 152/80; PULSE 96; RESP 18; TEMP 36.9
[2020-04-26 11:02] VITALS: BP 137/71; PULSE 75; RESP 18; TEMP 36.7; BMI 42.8
--- NOTE | 2020-04-26 12:56 | PN.PCM_ITS ---
(1) Left ankle pain Status: Acute Qualifiers: Code(s): M25.572 - Pain in left ankle and joints of left foot (2) Colonization status Status: Acute Code(s): Z22.9 - Carrier of infectious disease, unspecified (3) Chronic ulcer of left foot with fat layer exposed Status: Chronic Code(s): L97.522 - Non-pressure chronic ulcer of other part of left foot with fat layer exposed (4) Delayed wound healing Status: Chronic Code(s): T14.8XXD - Other injury of unspecified body region, subsequent encounter (5) Type 2 diabetes mellitus with diabetic polyneuropathy Status: Chronic Qualifiers: Code(s): E11.42 - Type 2 diabetes mellitus with diabetic polyneuropathy (6) Osteomyelitis of left foot Status: Resolved Code(s): M86.9 - Osteomyelitis, unspecified Type of Wound Date of Service: 04/26/20 Chief Complaint: Diabetic left foot ulceration, Mancilla Grade 3, with infection History of Wound: This 65-year-old male with multiple comorbidities was seen today for left foot ulcer. His left foot ulcer onset was 12-07-2019. He is previously known to me and had a left transmetatarsal amputation performed last year for treatment of limb threatening infection. That has since been healed. He has been changing the dressing daily with hydrogel and offloads with a cam walker boot and surgical shoes. He admits that he could keep weight off is better if he uses knee roller however he needs to get his knee roller fixed prior to using it again. He denies fever, chill, nausea, vomiting. He denies odor or redness. He has been washing with the antimicrobial soap as advised. He saw vascular surgery reports that he has some additional procedure scheduled. He is also treated by infectious disease and took Augmentin and ciprofloxacin for treatment of his Emili grade 3 and osteomyelitis. He has had progressive exposure of capsular tissue with intermittent infections consistent with a correct during grade 3 ulcer. He is considering hyperbaric oxygen therapy as recommended. He denies claustrophobia. He has been undergoing hyperbaric oxygen therapy. He is amendable to proceed with total contact cast today. Progress of Wound: Left stable - Physical Exam Vital Signs Temp Pulse Resp BP 98.0 F 75 18 137/71 H 04/26/20 11:02 04/26/20 11:02 04/26/20 11:02 04/26/20 11:02 General: Alert, Oriented x3, Cooperative, No apparent distress HEENT: Atraumatic Extremities: No cyanosis, Capillary Refill Less than 3 Seconds, No Calf Tenderness, Diminished Peripheral Pulses, Edema - Generalized to ankle and foot, Tenderness - Decreased tenderness to palpate ankle Skin: Ulcer/ Wound - No purulence. The ulcer has significantly increased in size and has devitalized fibrous base. No probe to bone. There is significant callus and maceration noted also. His skin is atrophic and hairless. Wound Measurements and Assessment WC - Nurse 1 - General Ulcer Measurement Start: 04/26/20 11:02 Freq: Status: Active Protocol: Activity Type Activity Date Activity User E-Sign Co-Sign Detail Recorded Client Recorded Date Recorded By Document 04/26/20 11:02 PL [id number] 04/26/20 11:08 PL 04/26/20 11:02 Wound Center Nurse 1 [Ulcer Assessment] #1 Left Plantar medial -Combined with other wound No -Current Size (cm) - Length 4.5 -Current Size (cm) - Width 2.2 -Current Size (cm) - Depth 0.8 -Total Square Cm 9.90 -Photo Taken No -Epithelialization None Present -Tunneling No -Undermining/Tunneling No -Circular Undermining No -Exudate Amt Large -Exudate Type Serosanguineous -Granulation Amt Large (67-100%) -Granulation Quality [place],Red -Slough/Fibrin Yes -Necrosis Amt Small (1-33%) -Necrotic Tissue Type Adherent Slough -Texture (Maria M-wound Skin Appearance) No Abnormality -Moisture (Maria M-wound Skin Appearance No Abnormality ) -Color (Maria M-wound Skin Appearance) No Abnormality -Temperature (Maria M-wound Skin No Abnormality Appearance) (Pt Warm) -Tenderness on Palpation (Maria M-wound No Skin Appearance) -Ulcer Cleansing Rinsed/ Irrigated with Saline -Foul Odor after Cleansing No WC - Nurse 2 - General Ulcer CM Notes Start: 04/26/20 11:02 Freq: Status: Active Protocol: Activity Type Activity Date Activity User E-Sign Co-Sign Detail Recorded Client Recorded Date Recorded By Document 04/26/20 11:22 CASSY [id number] 04/26/20 11:23 CASSY 04/26/20 11:22 Wound Center Nurse 2 [Procedure/Treatment] -Time 11:22 -Correct Patient Yes -Correct Side, Site, Position Yes -Correct Procedure Yes -Procedure Performed Yes -Type of Procedure Debridement -Clinical Debridement Subcutaneous -Post Debridement Size (cm) - Length 4.4 -Post Debridement Size (cm) - Width 2 -Post Debridement Size (cm) - Depth 1.0 -Total Square (cm) 8.8 -Wound/Ulcer Outcome Not Healed -Ulcer Cleansing Rinsed/ Irrigated with Saline -Foul Odor after Cleansing No -Bioengineered Tissue No [See Physician Procedure note for Specifics] Musculoskeletal: No Tenderness to Palpation of Joints or Extremities, Muscle Wasting, - - Left transmetatarsal amputation. Compartments remain soft to palpate left foot Neurological: - - Lack of normal epicritic sensation light touch is consistent with neuropathy status Psych/Mental Status: Normal Affect, Appropriate Debridement Note Post-Debridement Measurements/Treatment WC - Nurse 2 - General Ulcer CM Notes Start: 04/26/20 11:02 Freq: Status: Active Protocol: Activity Type Activity Date Activity User E-Sign Co-Sign Detail Recorded Client Recorded Date Recorded By Document 04/26/20 11:22 CASSY [id number] 04/26/20 11:23 CASSY 04/26/20 11:22 Wound Center Nurse 2 #1 Left Plantar medial -Time 11:22 -Correct Patient Yes -Correct Side, Site, Position Yes -Correct Procedure Yes -Procedure Performed Yes -Type of Procedure Debridement -Clinical Debridement Subcutaneous -Post Debridement Size (cm) - Length 4.4 -Post Debridement Size (cm) - Width 2 -Post Debridement Size (cm) - Depth 1.0 -Total Square (cm) 8.8 -Wound/Ulcer Outcome Not Healed -Ulcer Cleansing Rinsed/ Irrigated with Saline -Foul Odor after Cleansing No -Bioengineered Tissue No Wound debrided: plantar medial foot Laterality: Left Wound Grade/Stage: grade 3 Type of Debridement: Excisional debridement Anesthesia Used: 5% Lidocaine Gel Depth: in the subcutaneous layer Percentage of wound debrided: 100 Instrument Used: #15 blade Tissue Removed: fibrous, devitalized subcutaneous, biofilm, slough, excessive callous Severity: Fat Layer Exposed Amount of bleeding with debridement: Mild Bleeding Controlled with: Pressure Patient tolerated procedure well Assessment/Plan Assessment: Left plantar medial foot ulcer, Mancilla Grade 3. Cellulitis work-up in process. Chronic osteomyelitis left foot is treated medically at this time. Post-left transmetatarsal amputation. Diabetes mellitus with neuropathy that is uncontrolled. Morbid obesity. Obstructive sleep apnea. Renal insufficiency, stage 2. Hypertension. Hyperlipidemia Plan: I reviewed and discussed his case. Subcutaneous excisional debridement was performed as noted in the clinical panel to the left foot. The large peripheral callus was also debrided. His ulcer is notably larger in size today and has deteriorated. To continue to change dressing daily with hydrogel to the left foot. I would like to consider advanced wound healing product application, epi-fix, and this will be considered after the quality of the left foot tissue has improved. Prior authorization has been initiated and he is not ready to proceed with this at this time due to his initial [id number] expenses. Keep strict weight off of the sites of the left cam walker boot. He was encouraged to utilize the knee roller. Previous dual density Plastizote liners have been added to relieve the sites at further pressure. Due to the amount of callus formation I am concerned that he still has moderate friction and force applied to the site. I discussed other offloading techniques such as using a walker or a knee roller. We will plan on performing a total contact cast today however due to status change and infection work-up in process this will be delayed. His noninvasive vascular studies were reviewed from which were normal and intervention was previously not recommended. I advised him to follow-up with all of Dr. Bonilla's recommendations to optimize his healing process. He has recently been seen and intervention is planned for arterial optimization. An updated bilateral duplex was also recommended to help with planning. I recommend an updated left foot x-ray due to the increased depth of 0.7 cm at a recent prior visit. This was performed at the [facility] in 01-17-2020. The right foot does not have any fractures, dislocation, foreign body, osseous destruction, soft tissue emphysema. The left foot does not have any fracture, dislocation, foreign body, alfred osseous destruction, soft tissue emphysema either however there is a subtle area of radiolucency to the first metatarsal. Given his deeper ulcer status there is a concern of osteomyelitis and muscular infection involvement with progression and now exposed muscle tissue in combination with his overall delaying healing even though he has been on oral antibiotics for medical treatment of chronic osteomyelitis. His hemoglobin A1c was 13 in 2019 I would like to get this updated. An order was provided. His elevated glucose levels are significantly impairing his healing and I recommend he follows up with a airborne mission systems superintendent to better control his diet. To continue to follow-up as advised. He is currently making adjustments with his eating habits. He has been following up with nutritional services and had made several lifestyle changes. He also follows up with flexo operator, Dr. Arteaga who is working with him to reduce his hemoglobin A1c with medication and behavioral changes. His other labs were reviewed including CBC and CMP. WBC of 12.4 is noted. ESR was updated at 54 and C-reactive protein was 14.3. Smoking cessation was discussed in detail and he was advised on the healing impairment associated with this. To continue with his smoking cessation program. I also recommend discontinuation of nicotine products for this also contributes to small vessel contraction. His cultures are reviewed previously, and multi- organism growth including Klebsiella oxytoca, strep viridans, corynebacterium striatum, Enterococcus faecalis. He has continued with daily cleansing with antimicrobial soap. I previously recommended an antibiotic, and a prescription for Augmentin and ciprofloxacin were provided. I also recommend infectious disease referral for Mancilla grade 3 ulcer and osteomyelitis due to his subtle x- ray findings and progressive ulcer deterioration in the left foot there is a concern of chronic osteomyelitis. He was seen by Dr. Pathak, infectious disease specialist, and a 6-week course will be planned for treatment of osteomyelitis. This was completed. Now he has worsening status of his ulcer and therefore a culture of the wound was obtained today. I also provided orders for him to get his foot x-ray updated as well as labs including CBC, ESR, and C- reactive protein. I will call him with the results. Antibiotics will be considered pending his progress. He is an appropriate hyperbaric oxygen therapy candidate and he has been cleared. To continue his schedule. He will be due for hyperbaric renewal consideration. Is noted his ulcer size has recently deteriorated. Smoking cessation is also imperative to help healing. He used to smoke over 2 packs a day and is now down to half a pack. Compliance is imperative during this time. I answered all of his questions today.
[2020-05-03 10:47] VITALS: BP 149/78; PULSE 78; RESP 16; TEMP 36.9; BMI 42.8
--- NOTE | 2020-05-03 13:02 | PN.PCM_ITS ---
(1) Chronic ulcer of left foot with fat layer exposed Status: Chronic Current Visit: Yes Code(s): L97.522 - Non-pressure chronic ulcer of other part of left foot with fat layer exposed (2) Delayed wound healing Status: Chronic Current Visit: Yes Code(s): T14.8XXD - Other injury of unspecified body region, subsequent encounter (3) Type 2 diabetes mellitus with diabetic polyneuropathy Status: Chronic Current Visit: Yes Qualifiers: Code(s): E11.42 - Type 2 diabetes mellitus with diabetic polyneuropathy (4) Osteomyelitis of left foot Status: Resolved Current Visit: Yes Code(s): M86.9 - Osteomyelitis, unspecified (5) Cellulitis of left lower limb Status: Acute Current Visit: Yes Code(s): L03.116 - Cellulitis of left lower limb (6) MRSA (methicillin resistant staph aureus) culture positive Status: Acute Current Visit: Yes Code(s): Z22.322 - Carrier or suspected carrier of Methicillin resistant Staphylococcus aureus Type of Wound Date of Service: 05/03/20 Chief Complaint: Diabetic left foot ulceration, [place] Grade 3, with infection History of Wound: This 65-year-old male with multiple comorbidities was seen today for left foot ulcer. His left foot ulcer onset was 12-07-2019. He is previously known to me and had a left transmetatarsal amputation performed previously. That has since been healed. He has been changing the dressing daily with dakin solution wet to dry dressing and offloads with a cam walker boot and surgical shoes. However, he presents with a regular sneaker today. He does not have a knee roller today. He denies fever, chill, nausea, vomiting, or diarrhea. He denies odor or redness. He has been washing with the antimicrobial soap as advised. He saw vascular surgery reports that he has some additional procedure scheduled. He has been taking doxycycline as advised. He has been undergoing hyperbaric oxygen therapy sessions. Progress of Wound: Worse status - Physical Exam Vital Signs Temp Pulse Resp BP 98.4 F 78 16 149/78 H 05/03/20 10:47 05/03/20 10:47 05/03/20 10:47 05/03/20 10:47 General: Alert, Oriented x3, Cooperative, No apparent distress HEENT: Atraumatic Extremities: No cyanosis, Capillary Refill Less than 3 Seconds, No Calf Tenderness, Diminished Peripheral Pulses, Edema - Mild, - - Left transmetatarsal amputation Skin: Ulcer/ Wound - No purulence on expression. Odor decreased. Erythema decreased. No streaking. The wound is notably larger in size almost double and there is continued significant callus and maceration tissue. There is a visualized part of the tendon which appears healthy and is consistent with the flexor hallucis longus tendon. No probe to bone noted. No bogginess or fluctuance on palpation, - - Adjacent skin is hairless and atrophic Wound Measurements and Assessment - Nurse 1 - General Ulcer Measurement Start: 04/26/20 11:02 Freq: Status: Active Protocol: Activity Type Activity Date Activity User E-Sign Co-Sign Detail Recorded Client Recorded Date Recorded By Document 05/03/20 10:47 DANA [id number] 05/03/20 10:56 DL 05/03/20 10:47 Wound Center Nurse 1 [Ulcer Assessment] #1 Left Plantar medial -Current Size (cm) - Length 1.8 -Current Size (cm) - Width 2.1 -Current Size (cm) - Depth 0.9 -Total Square Cm 3.78 -Photo Taken Yes -Undermining/Tunneling Starts (O' 3 clock) -Undermining/Tunneling Ends (O'clock) 4 -Maximum Distance (cm) 0.3 -Exudate Amt Small -Exudate Type Serosanguineous -Wound Margin Thickened -Granulation Amt Medium (34-66%) -Granulation Quality [place] -Necrotic Tissue Type Adherent Slough -Structure Exposed N/A -Texture (Maria M-wound Skin Appearance) Callus -Moisture (Maria M-wound Skin Appearance Dry/Scaly ) -Color (Maria M-wound Skin Appearance) Hemosiderin Staining -Temperature (Maria M-wound Skin No Abnormality Appearance) (Pt Warm) -Tenderness on Palpation (Maria M-wound No Skin Appearance) -Ulcer Cleansing Wound Cleanser -Foul Odor after Cleansing No -Anesthetic Used 4% Lidocaine Solution [Edema Assessment] -Left Calf (cm) 46 -Left Ankle (cm) 27.2 - Nurse 2 - General Ulcer CM Notes Start: 04/26/20 11:02 Freq: Status: Active Protocol: Activity Type Activity Date Activity User E-Sign Co-Sign Detail Recorded Client Recorded Date Recorded By Document 05/03/20 11:16 [id number] 05/03/20 11:17 05/03/20 11:16 Wound Center Nurse 2 [Procedure/Treatment] #1 Left Plantar medial -Time 11:17 -Correct Patient Yes -Correct Side, Site, Position Yes -Correct Procedure Yes -Procedure Performed Yes -Type of Procedure Debridement -Clinical Debridement Subcutaneous -Post Debridement Size (cm) - Length 2.4 -Post Debridement Size (cm) - Width 2.0 -Post Debridement Size (cm) - Depth 0.5 -Total Square (cm) 4.80 -Wound/Ulcer Outcome Not Healed -Ulcer Cleansing Rinsed/ Irrigated with Saline -Foul Odor after Cleansing No -Bioengineered Tissue No -Bleeding Controlled with Pressure -Offloading Yes -Type of Offloading Surgical Shoe -Treatment Response Procedure Tolerated Well [See Physician Procedure note for Specifics] Pain Scale: 0-10 Numeric [Pain] -Is Patient Pain Free? Yes Musculoskeletal: No Tenderness to Palpation of Joints or Extremities, Muscle Wasting, - - Compartments left lower extremity remain soft Neurological: - - Lack of epicritic sensation light touch is consistent with his neuropathy status Psych/Mental Status: Normal Affect, Appropriate Debridement Note Post-Debridement Measurements/Treatment WC - Nurse 2 - General Ulcer CM Notes Start: 04/26/20 11:02 Freq: Status: Active Protocol: Activity Type Activity Date Activity User E-Sign Co-Sign Detail Recorded Client Recorded Date Recorded By Document 04/26/20 11:22 [id number] 04/26/20 11:23 Document 05/03/20 11:16 [id number] 05/03/20 11:17 04/26/20 05/03/20 11:22 11:16 Wound Center Nurse 2 #1 Left Plantar medial -Time 11:22 11:17 -Correct Patient Yes Yes -Correct Side, Site, Position Yes Yes -Correct Procedure Yes Yes -Procedure Performed Yes Yes -Type of Procedure Debridement Debridement -Clinical Debridement Subcutaneous Subcutaneous -Post Debridement Size (cm) - Length 4.4 2.4 -Post Debridement Size (cm) - Width 2 2.0 -Post Debridement Size (cm) - Depth 1.0 0.5 -Total Square (cm) 8.8 4.80 -Wound/Ulcer Outcome Not Healed Not Healed -Ulcer Cleansing Rinsed/ Rinsed/ Irrigated with Irrigated with Saline Saline -Foul Odor after Cleansing No No -Bioengineered Tissue No No -Bleeding Controlled with Pressure -Offloading Yes -Type of Offloading Surgical Shoe -Treatment Response Procedure Tolerated Well Pain Scale: 0-10 Numeric Is Patient Pain Free? Yes Wound debrided: plantar medial foot Laterality: Left Wound Grade/Stage: grade 3 Type of Debridement: Excisional debridement Anesthesia Used: 5% Lidocaine Gel Depth: in the subcutaneous layer Percentage of wound debrided: 100 Instrument Used: #15 blade Tissue Removed: fibrous, devitalized subcutaneous, biofilm, slough, excess callous Severity: Necrosis of Muscle Amount of bleeding with debridement: Mild Bleeding Controlled with: Pressure Patient tolerated procedure well Assessment/Plan Active Problems (Last Reviewed 04/24/20 @ 15:[address] Juan Arteaga MD) Cellulitis of left lower limb (Acute) MRSA (methicillin resistant staph aureus) culture positive (Acute) Chronic ulcer of left foot with fat layer exposed (Chronic) Delayed wound healing (Chronic) Type 2 diabetes mellitus with diabetic polyneuropathy (Chronic) Assessment: Left plantar medial foot ulcer, [place] Grade 3. Cellulitis: MRSA. Chronic osteomyelitis left foot is treated medically at this time; concern for acute presentation. Post-left transmetatarsal amputation. Diabetes mellitus with neuropathy that is uncontrolled. Morbid obesity. Obstructive sleep apnea. Renal insufficiency, stage 2. Hypertension. Hyperlipidemia Plan: I reviewed and discussed his case. Subcutaneous excisional debridement was performed as noted in the clinical panel to the left foot. The large peripheral callus was also debrided. His ulcer is notably larger in size today and has deteriorated. To continue to change dressing daily with dakin solution wet to dry dressing to the left foot. I would like to consider advanced wound healing product application, epi-fix, and this will be considered after the quality of the left foot tissue has improved. Prior authorization has been initiated and he is not ready to proceed with this at this time due to his initial [id number]-[id number] expenses. Keep strict weight off of the sites of the left cam walker boot. He was encouraged to utilize the knee roller. Previous dual density Plastizote liners have been added to relieve the sites at further pressure. Due to the amount of callus formation I am concerned that he still has moderate friction and force applied to the site especially because he walked in today wearing athletic sneakers. Compliance was reiterated. I discussed other offloading techniques such as using a walker or a knee roller. We will plan on performing a total contact cast today however due to status change and infection work-up in process this will be delayed. His noninvasive vascular studies were reviewed from which were normal and intervention was previously not recommended. I advised him to follow-up with all of Dr. Bonilla's recommendations to optimize his healing process. He has recently been seen and intervention is planned for arterial optimization. An updated bilateral duplex was also recommended to help with planning. He had an updated left foot x-ray which did not demonstrate any new progressive osseous destruction, soft tissue emphysema, fracture, dislocation, or foreign body. His culture demonstrated MRSA growth and he did have elevated white blood cell count of 11.2. He was started on doxycycline. A refill was provided. I recommend that he sees infectious disease because he is very high risk. I also recommend an MRI to confirm the extent of infection. Additional antibiotics for surgical debridement versus other procedure will be considered pending his continued response and MRI findings. To continue to work on decreasing glucose levels. He has a history of hyperglycemia. To continue to follow-up with nutritional services. To continue to follow-up as advised. He is currently making adjustments with his eating habits. He also follows up with liner inserter, Dr. Arteaga who is working with him to reduce his hemoglobin A1c with medication and behavioral changes. His other labs were reviewed including CBC and CMP. WBC of 12.4 is noted. ESR was updated at 54 and C-reactive protein was 14.3. Smoking cessation was discussed in detail and he was advised on the healing impairment associated with this. To continue with his smoking cessation program. I also recommend discontinuation of nicotine products for this also contributes to small vessel contraction. He is not demonstrating the anticipated improvement with hyperbaric oxygen therapy and this will be placed on hold. It is noted he had a recent setback with his action will be considered potential future renewals. I answered all of his questions today. To return to clinic in 1 week or call sooner if questions, concerns, or progressive worsening.
--- NOTE | 2020-05-04 14:08 | WC ---
Called patient's insurance company to obtain a precert for his MRI of left foot. Per Joana, approved with confirmation number of [id number]. Order scheduled for 05-09-2020 at 0700. Patient has been notified.
[2020-05-10 14:23] VITALS: BP 166/66; PULSE 98; RESP 18; TEMP 36.5; BMI 42.8
== END 2020-05-22 23:59 ==
LOC: WC 10:45
PROVIDERS: PCP Family Medicine Geriatric Medicine; Referring Provider Podiatrist; Visit Provider Podiatrist
DX: E11.621 Type 2 diabetes mellitus with foot ulcer (principal); E11.42 Type 2 diabetes mellitus with diabetic polyneuropathy; L97.522 Non-pressure chronic ulcer of other part of left foot with fat layer exposed; E66.01 Morbid (severe) obesity due to excess calories; G47.33 Obstructive sleep apnea (adult) (pediatric); I10 Essential (primary) hypertension; E78.5 Hyperlipidemia, unspecified; N28.9 Disorder of kidney and ureter, unspecified; F17.200 Nicotine dependence, unspecified, uncomplicated; L03.116 Cellulitis of left lower limb; Z86.14 Personal history of Methicillin resistant Staphylococcus aureus infection; M86.672 Other chronic osteomyelitis, left ankle and foot; E11.69 Type 2 diabetes mellitus with other specified complication

== ENCOUNTER → 2020-05-04 13:05 | Outpatient (CLI) | payer MEDICARE, SELFPAY ==
[2020-02-23 13:45] VITALS: BMI 43.5
[2020-05-03 10:47] VITALS: BMI 42.8
--- NOTE | 2020-05-04 13:07 | ADU_ITS ---
Reason For Study: atherosclerosis Right Velocities Left Velocities Ext. Iliac Artery, dist = 231.2 cm./sec. Ext Iliac Artery, dist = 197.8 cm./sec. Common Femoral Artery, mid = 178.5 cm./sec. Common Femoral Artery, mid = 171.7 cm./sec. Supf Femoral Artery, prox = 149.9 cm./sec. Supf. Femoral Artery, prox = 202.8 cm./sec. Supf Femoral Artery, mid = 128.0 cm./sec. Supf. Femoral Artery, mid = 166.5 cm./sec. Supf Femoral Artery, dist. = 145.5 cm./sec. Supf. Femoral Artery, dist = 140.6 cm./sec. Profunda Femoral Artery = 130.2 cm./sec. Profunda Femoral Artery = 99.2 cm./sec. Popliteal Artery, prox. = 97.2 cm./sec. Popliteal Artery, proximal, = 122.5 cm./sec. Popliteal Artery, mid = 86.2 cm./sec. Popliteal Artery, mid = 66.5 cm./sec. Popliteal Artery, dist = 114.7 cm./sec. Popliteal Artery, distal = 112.6 cm./sec. Ant. Tibial Artery, prox = 64.5 cm./sec. Ant.Tibial Artery, prox = 84.0 cm./sec. Ant. Tibial Artery, mid = 62.6 cm./sec. Ant Tibial Artery, mid = 92.8 cm./sec. Ant. Tibial Artery, dist = 84.6 cm./sec. Ant. Tibial Artery, distal = 90.6 cm./sec. Post. Tibial Artery, prox = 92.8 cm./sec. Post. Tibial Artery, prox = 121.4 cm./sec. Post. Tibial Artery, mid = 136.7 cm./sec. Post Tibial Artery, mid = 114.8 cm./sec. Post. Tibial Artery, dist = 169.5 cm./sec. Post Tibial Artery, dist. = 156.5 cm./sec. Peroneal Artery, mid = 110.2 cm./sec. Peroneal Artery, prox = 70.9 cm./sec. Peroneal Artery,dist = 103.7 cm./sec. Peroneal Artery, mid = 134.6 cm./sec. Unable to image Proximal Peroneal artery due to ptPeroneal Artery,dist. = 70.9 cm./sec. body habitus. Procedure The exam was diagnostic. Exam performed in department. Interpretation Summary Bilateral no significant stenosis visualized. Ordering Physician: Kannan Bonilla Performed By: Viktor Post RVT
--- NOTE | 2020-05-04 13:07 | ART_ITS ---
Reason For Study: atherosclerosis Procedure A bilateral lower extremity continuous wave Doppler with analog waveform analysis and ankle brachial indexes. Left Segmental Pressures Left brachial= 148mmHg. Left posterior tibial artery = 161mmHg. Left dorsalis pedis artery = 146mmHg. The left dorsalis pedis waveforms are biphasic. The left posterior tibial artery waveforms are biphasic. Right Segmental Pressures Right brachial= 157mmHg. Right posterior tibial artery = 148mmHg. Right dorsalis pedis artery = 130mmHg. Right digit = 96 mmHg. The right dorsalis pedis waveforms are biphasic. The right posterior tibial artery waveforms are biphasic. Indices The right ankle brachial index by the dorsalis pedis is .83. The right ankle brachial index by the posterior tibial artery is .94. The right digital-brachial index is .61. The left ankle brachial index by the dorsalis pedis is .93. The left ankle brachial index by the posterior tibial artery is 1.03. Interpretation Summary No significant occlussive disease a rest with KANDI 0.94 and 1.03. Ordering Physician: Kannan Bonilla Performed By: ROSE MARIE BENJAMIN Wily
== END ==
PROVIDERS: PCP Family Medicine Geriatric Medicine; Referring Provider Surgery Vascular Surgery; Visit Provider Surgery Vascular Surgery
DX: I70.235 Atherosclerosis of native arteries of right leg with ulceration of other part of foot (principal); I70.245 Atherosclerosis of native arteries of left leg with ulceration of other part of foot
CPT/HCPCS: 93922; 93925

== ENCOUNTER → 2020-05-12 12:02 | Outpatient (CLI) | payer MEDICARE, MEDICAID, SELFPAY ==
[2020-05-10 14:23] VITALS: BMI 42.8
[2020-05-12 13:01] LABS: Anion Gap 4 (5-15); BUN 13 mg/dL (7-18); Calcium,Total 8.5 mg/dL (8.5-10.1); Chloride 107 mmol/L (98-107); Creatinine, Serum 0.76 mg/dL (0.70-1.30); EST Glomerular Filtration Rate 109 mL/min (>60); Est Glom Filt Rate - Afr Amer 132 mL/min (>60); Glucose 178 mg/dL (74-106); Potassium 4.2 mmol/L (3.5-5.1); Sodium Level 136 mmol/L (136-145)
== END ==
PROVIDERS: PCP Family Medicine Geriatric Medicine; Referring Provider Internal Medicine Infectious Disease; Visit Provider Internal Medicine Infectious Disease
DX: L97.529 Non-pressure chronic ulcer of other part of left foot with unspecified severity (principal); A49.02 Methicillin resistant Staphylococcus aureus infection, unspecified site
CPT/HCPCS: 36415; 80048

== ENCOUNTER 2020-05-17 14:30 | Outpatient (RCR) | payer MEDICARE, MEDICAID, SELFPAY ==
[2020-04-19 14:36] VITALS: BMI 42.8
[2020-04-24 08:45] LABS: Bedside Glucose 167 mg/dL (70-110)
[2020-04-24 09:11] VITALS: BP 145/66; BP 148/73; PULSE 78; PULSE 91; RESP 16; RESP 18; TEMP 36.8; TEMP 36.9
[2020-04-24 10:45] LABS: Bedside Glucose 130 mg/dL (70-110)
--- NOTE | 2020-04-24 10:46 | PCM.HBO.PN ---
History of Present Illness Date of Service: 04/24/20 Presenting Chief Complaint: Diabetic left foot ulceration, Mancilla Grade 3, with infection GEN SIM is a 65 year old currently undergoing hyperbaric oxygen therapy for Manc[place] Grade 3 diabetic left foot ulceration with infection/osteomyelitis Progress: This represents the 13th such session of hyperbaric oxygen therapy. Tolerance of hyperbaric oxygen therapy: Hyperbaric oxygen therapy was administered as per the facility's protocol at 2 MARTITA for 90 minutes with 2 air breaks.. On emergence from the hyperbaric chamber, his vitals were stable and he was discharged in stable condition. He had bilateral ear tubes placed on 04 April 2020 and has been tolerating treatments well. Pre- and post-treatment blood glucose readings as documented. Past Medical History Chronic Problems (Last Reviewed 01/17/20 @ 13:[address] 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) Diabetes (Chronic) Type 2 diabetes mellitus (Chronic) Obstructive sleep apnea (Chronic) Uncontrolled diabetes mellitus (Chronic) Diabetic infection of left foot (Chronic) Osteomyelitis of great toe of left foot (Chronic) Morbid obesity due to excess calories (Chronic) Tobacco dependence due to cigarettes (Chronic) Diabetic neuropathy (Chronic) Hypertension (Chronic) 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) Allergies/Adverse Reactions: Allergies No Known Allergies Allergy (Verified 10/18/19 09:18) Home Medications: Ambulatory Orders Medication Instructions Recorded Calcium Carbonate [Calcium] 500 mg PO DAILY 06/23/17 Gabapentin [Neurontin] 300 mg PO TIDCM 06/23/17 Multivitamin [Multiple Vitamins] 1 ea PO DAILY 06/23/17 aspirin 81 mg tablet,delayed 81 mg PO DAILY 08/12/19 release atorvastatin 40 mg tablet 40 mg PO DAILY 10/18/19 bupropion HCl 150 mg 24 hr tablet, 150 mg PO BID tab 10/18/19 extended release lisinopril 10 mg tablet 10 mg PO DAILY 10/18/19 tamsulosin 0.4 mg capsule 0.4 mg PO DAILY@1730 cap 10/18/19 blood sugar diagnostic See Rx Instructions .ROUTE 10/28/19 .MEDSUPPLY #100 ea lancets 33 gauge See Rx Instructions .ROUTE 10/28/19 .MEDSUPPLY #100 ea Amoxicillin/Potassium Clav 1 ea PO BID #70 tab 01/26/20 [Augmentin 875-125 Tablet] Ciprofloxacin/Ciprofloxa HCl 500 mg PO BID #70 tbmp.24hr 01/26/20 [Ciprofloxacin ER 500 mg Tablet] insulin regular hum U-500 conc 135 unit SC TID #24 ml 02/01/20 Maternal Family History: Family History (Last Reviewed 10/18/19 @ 09:[address] Juan Arteaga MD) Father Myocardial infarction Heart disease Mother Kidney disease Diabetes Sister Asthma Breast cancer Hypertension Brother Alcoholism Melanoma Family History: Diabetes, Renal Disease - on dialysis Paternal Family History: Family History (Last Reviewed 10/18/19 @ 09:[address] Juan Arteaga MD) Father Myocardial infarction Heart disease Mother Kidney disease Diabetes Sister Asthma Breast cancer Hypertension Brother Alcoholism Melanoma Family History: Heart Disease Sibling Family History: Family History (Last Reviewed 10/18/19 @ 09:[address] Juan Arteaga MD) Father Myocardial infarction Heart disease Mother Kidney disease Diabetes Sister Asthma Breast cancer Hypertension Brother Alcoholism Melanoma Family History: Cancer - breast cancer in his sister Smoking Status: Heavy Smoker (>10/day) Physical Exam Vital Signs Temp Pulse Resp BP 98.4 F 91 18 145/66 H 04/24/20 09:11 04/24/20 09:11 04/24/20 09:11 04/24/20 09:11 General: Alert, Oriented x3, Cooperative, No apparent distress HEENT: Atraumatic, TM's Clear - Bilateral ear tubes in place. 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 Treatment Course Number Number of HBO Treatments 30 Ordered Treatment Course Number 1 Treatment # 13 Chamber # [id number] Chamber Type Monoplace HBO Diagnosis/Indication Diagnosis/Indication(s) for Left Diabetic Foot Ulcer Hyperbaric Therapy Classification - Mancilla Grade 2 Grading (Diabetic Ulcer) [] Classification - [place]anc[place] Grade 2 Grading (Diabetic Ulcer) [] Classification - [place]anc[place] Grade 3 Grading (Diabetic Ulcer) Diabetes - Detail Diabetes Diabetes Type II Diabetes Control Uncontrolled Left Extremity Ulcer, Other part of Foot Treatment Plan MARTITA (Atmospheric Absolute) 2 Number of Minutes 90 Number of Air Breaks 2 [id number] HBO management
[2020-04-26 08:35] LABS: Bedside Glucose 144 mg/dL (70-110)
[2020-04-26 08:45] VITALS: BP 137/71; BP 150/74; PULSE 75; PULSE 86; RESP 18; RESP 20; TEMP 35.8; TEMP 36.7
[2020-04-26 10:56] LABS: Bedside Glucose 96 mg/dL (70-110)
--- NOTE | 2020-04-26 10:56 | PCM.HBO.PN ---
History of Present Illness Date of Service: 04/26/20 Presenting Chief Complaint: Diabetic left foot ulceration, Mancilla Grade 3, with infection GEN SIM is a 65 year old currently undergoing hyperbaric oxygen therapy for Manc[place] Grade 3 diabetic left foot ulceration with infection/osteomyelitis Progress: This represents the 14th such session of hyperbaric oxygen therapy. Tolerance of hyperbaric oxygen therapy: Hyperbaric oxygen therapy was administered as per the facility's protocol at 2 MARTITA for 90 minutes with 2 air breaks.. On emergence from the hyperbaric chamber, his vitals were stable and he was discharged in stable condition. He had bilateral ear tubes placed on 04 April 2020 and has been tolerating treatments well. Pre- and post-treatment blood glucose readings as documented. Past Medical History Chronic Problems (Last Reviewed 04/24/20 @ 15:[address] 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) Diabetes (Chronic) Type 2 diabetes mellitus (Chronic) Obstructive sleep apnea (Chronic) Uncontrolled diabetes mellitus (Chronic) Diabetic infection of left foot (Chronic) Osteomyelitis of great toe of left foot (Chronic) Morbid obesity due to excess calories (Chronic) Tobacco dependence due to cigarettes (Chronic) Diabetic neuropathy (Chronic) Hypertension (Chronic) 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) Allergies/Adverse Reactions: Allergies No Known Allergies Allergy (Verified 04/24/20 14:46) Home Medications: Ambulatory Orders Medication Instructions Recorded Calcium Carbonate [Calcium] 500 mg PO DAILY 06/23/17 Multivitamin [Multiple Vitamins] 1 ea PO DAILY 06/23/17 aspirin 81 mg tablet,delayed 81 mg PO DAILY 08/12/19 release atorvastatin 40 mg tablet 40 mg PO DAILY 10/18/19 bupropion HCl 150 mg 24 hr tablet, 150 mg PO BID tab 10/18/19 extended release lisinopril 10 mg tablet 10 mg PO DAILY 10/18/19 tamsulosin 0.4 mg capsule 0.4 mg PO DAILY@1730 cap 10/18/19 blood sugar diagnostic See Rx Instructions .ROUTE 10/28/19 .MEDSUPPLY #100 ea lancets 33 gauge See Rx Instructions .ROUTE 10/28/19 .MEDSUPPLY #100 ea gabapentin 300 mg capsule 600 mg PO TIDCM cap 04/24/20 insulin regular hum U-500 conc 145 unit SC TID ml 04/24/20 Maternal Family History: Family History (Last Reviewed 04/24/20 @ 15:[address] Juan Arteaga MD) Father Myocardial infarction Heart disease Mother Kidney disease Diabetes Sister Asthma Breast cancer Hypertension Brother Alcoholism Melanoma Family History: Diabetes, Renal Disease - on dialysis Paternal Family History: Family History (Last Reviewed 04/24/20 @ 15:[address] Juan Arteaga MD) Father Myocardial infarction Heart disease Mother Kidney disease Diabetes Sister Asthma Breast cancer Hypertension Brother Alcoholism Melanoma Family History: Heart Disease Sibling Family History: Family History (Last Reviewed 04/24/20 @ 15:[address] 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 Treatment Course Number Number of HBO Treatments 30 Ordered Treatment Course Number 1 Treatment # 14 Chamber # [id number] Chamber Type Monoplace HBO Diagnosis/Indication Diagnosis/Indication(s) for Left Diabetic Foot Ulcer,Standard/Conservative Hyperbaric Therapy Classification - Mancilla Grade 2 Grading (Diabetic Ulcer) [#2 right 5th metatarsal] Classification - [place]anc[place] Grade 2 Grading (Diabetic Ulcer) [#1 Left Plantar medial] Classification - [place]anc[place] Grade 3 Grading (Diabetic Ulcer) Diabetes - Detail Diabetes Diabetes Type II Diabetes Control Uncontrolled Left Extremity Ulcer, Other part of Foot Treatment Plan MARTITA (Atmospheric Absolute) 2 Number of Minutes 90 Number of Air Breaks 2
--- NOTE | 2020-04-26 12:28 | RAD_ITS ---
STUDY: X-RAY - LEFT FOOT CLINICAL: Male, 65 years old. Osteomyelitis, wound care currently TECHNIQUE: 3 view(s) of the foot. COMPARISON: 05/18/2019 FINDINGS: Transmetatarsal amputations of digits 1 through 5. Soft tissue swelling. No periosteal reaction or osteolysis. Visible joint spaces are intact. RAD/Foot min 3 Views IMPRESSION: No radiographic evidence of osteomyelitis. If there is further concern for osteomyelitis, consider correlation with three-phase bone scan or contrast-enhanced MRI. Electronically Signed: Stephane Hartley MD at 17:11 EDT Tel , Service support ,
[2020-04-26 12:54] LABS: Erythrocyte Sedimentation Rate 74 mm/hr (0-20)
[2020-04-26 12:56] LABS: Absolute Lymphocyte Count 2.17 X10^3/uL (0.83-4.51); Absolute Neutrophil Count 7.9 X10^3/uL (2.0-7.7); Basophil# 0.09 X10^3/uL; Basophil% 0.8 % (0-1); Eosinophil# 0.44 X10^3/uL; Eosinophils% 3.8 % (0-5); Hemoglobin 13.8 g/dL (13.0-16.5); Lymphocyte # 2.17 X10^3/ul (4.0); Lymphocyte % 18.9 % (19-41); Mean Corp Hgb Conc 32.1 g/dL (32-36); Mean Corpuscular Hgb 29.4 pg (27.0-32.0); Mean Corpuscular Volume 91.7 fL (80-94); Mean Platelet Vol. 10.2 fl (6.2-12.0); Monocyte# 0.81 X10^3/uL; NRBC Flagged by Analyzer 0 % (0-5); Neutrophil # 7.85 X10^3/uL (2.7-7.7); Neutrophil % 68.2 % (47-70); Platelet Count 271 K/mm3 (150-450); Red Blood Count 4.69 M/mm3 (4.6-6.2); White Blood Count 11.5 K/mm3 (4.4-11.0)
[2020-04-26 18:38] LABS: M R Staph aureus DNA By PCR POSITIVE (Negative); Probe Check PASS; Staph aureus DNA By PCR POSITIVE (Negative)
[2020-04-27 09:06] LABS: Bedside Glucose 175 mg/dL (70-110)
[2020-04-27 09:13] VITALS: BP 144/87; BP 146/73; PULSE 79; PULSE 84; RESP 16; RESP 18; TEMP 35.9; TEMP 36.6
--- NOTE | 2020-04-27 10:13 | PCM.HBO.PN ---
History of Present Illness Date of Service: 04/27/20 Presenting Chief Complaint: Diabetic left foot ulceration, Mancilla Grade 3, with infection GEN SIM is a 65 year old currently undergoing hyperbaric oxygen therapy for Mancilla Grade 3 diabetic left foot ulceration with infection/osteomyelitis Progress: This represents the 15th such session of hyperbaric oxygen therapy. Tolerance of hyperbaric oxygen therapy: Hyperbaric oxygen therapy was administered as per the facility's protocol at 2 MARTITA for 90 minutes with 2 air breaks.. On emergence from the hyperbaric chamber, his vitals were stable and he was discharged in stable condition. He had bilateral ear tubes placed on 04 April 2020 and has been tolerating treatments well. Pre- and post-treatment blood glucose readings as documented. Past Medical History Chronic Problems (Last Reviewed 04/24/20 @ 15:[address] 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) Diabetes (Chronic) Type 2 diabetes mellitus (Chronic) Obstructive sleep apnea (Chronic) Uncontrolled diabetes mellitus (Chronic) Diabetic infection of left foot (Chronic) Osteomyelitis of great toe of left foot (Chronic) Morbid obesity due to excess calories (Chronic) Tobacco dependence due to cigarettes (Chronic) Diabetic neuropathy (Chronic) Hypertension (Chronic) 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) Allergies/Adverse Reactions: Allergies No Known Allergies Allergy (Verified 04/24/20 14:46) Home Medications: Ambulatory Orders Medication Instructions Recorded Calcium Carbonate [Calcium] 500 mg PO DAILY 06/23/17 Multivitamin [Multiple Vitamins] 1 ea PO DAILY 06/23/17 aspirin 81 mg tablet,delayed 81 mg PO DAILY 08/12/19 release atorvastatin 40 mg tablet 40 mg PO DAILY 10/18/19 bupropion HCl 150 mg 24 hr tablet, 150 mg PO BID tab 10/18/19 extended release lisinopril 10 mg tablet 10 mg PO DAILY 10/18/19 tamsulosin 0.4 mg capsule 0.4 mg PO DAILY@1730 cap 10/18/19 blood sugar diagnostic See Rx Instructions .ROUTE 10/28/19 .MEDSUPPLY #100 ea lancets 33 gauge See Rx Instructions .ROUTE 10/28/19 .MEDSUPPLY #100 ea gabapentin 300 mg capsule 600 mg PO TIDCM cap 04/24/20 insulin regular hum U-500 conc 145 unit SC TID ml 04/24/20 Maternal Family History: Family History (Last Reviewed 04/24/20 @ 15:[address] Juan Arteaga MD) Father Myocardial infarction Heart disease Mother Kidney disease Diabetes Sister Asthma Breast cancer Hypertension Brother Alcoholism Melanoma Family History: Diabetes, Renal Disease - on dialysis Paternal Family History: Family History (Last Reviewed 04/24/20 @ 15:[address] Juan Arteaga MD) Father Myocardial infarction Heart disease Mother Kidney disease Diabetes Sister Asthma Breast cancer Hypertension Brother Alcoholism Melanoma Family History: Heart Disease Sibling Family History: Family History (Last Reviewed 04/24/20 @ 15:[address] Juan Arteaga MD) Father Myocardial infarction Heart disease Mother Kidney disease Diabetes Sister Asthma Breast cancer Hypertension Brother Alcoholism Melanoma Family History: Cancer - breast cancer in his sister Smoking Status: Heavy Smoker (>10/day) Physical Exam Vital Signs Temp Pulse Resp BP 96.6 F L 84 18 146/73 H 04/27/20 09:13 04/27/20 09:13 04/27/20 09:13 04/27/20 09:13 General: Alert, Oriented x3, Cooperative, No apparent distress HEENT: Atraumatic, TM's Clear Lungs: Clear to auscultation, Normal air movement Cardiovascular: Regular rate, Regular Rhythm Psych/Mental Status: Normal Affect, Appropriate, Alert and oriented to time, place, person, mood and affect Assessment/Plan Active Problems (Last Reviewed 04/24/20 @ 15:[address] Juan Arteaga MD) Left ankle pain (Acute) Colonization status (Acute) Chronic ulcer of left foot with fat layer exposed (Chronic) Delayed wound healing (Chronic) Type 2 diabetes mellitus with diabetic polyneuropathy (Chronic) Treatment Course Number Number of HBO Treatments 30 Ordered Treatment Course Number 1 Treatment # 15 Chamber # [id number] Chamber Type Monoplace HBO Diagnosis/Indication Diagnosis/Indication(s) for Left Diabetic Foot Ulcer,Standard/Conservative Hyperbaric Therapy Classification - Mancilla Grade 2 Grading (Diabetic Ulcer) [] Classification - [place]anc[place] Grade 2 Grading (Diabetic Ulcer) [] Classification - [place] Grade 3 Grading (Diabetic Ulcer) Diabetes - Detail Diabetes Diabetes Type II Diabetes Control Uncontrolled Left Extremity Ulcer, Other part of Foot Treatment Plan MARTITA (Atmospheric Absolute) 2 Number of Minutes 90 Number of Air Breaks 2 The patient appears to be tolerating hyperbaric oxygen therapy well, which will be continued as per the patient's medical plan.
[2020-04-27 11:21] LABS: Bedside Glucose 124 mg/dL (70-110)
--- NOTE | 2020-04-28 09:27 | PCM.HBO.PN ---
History of Present Illness Date of Service: 04/28/20 Presenting Chief Complaint: Diabetic left foot ulceration, Mancilla Grade 3, with infection GEN SIM is a 65 year old currently undergoing hyperbaric oxygen therapy for Mancilla Grade 3 diabetic left foot ulceration with infection/osteomyelitis Progress: This represents the 16th such session of hyperbaric oxygen therapy. Tolerance of hyperbaric oxygen therapy: Hyperbaric oxygen therapy was administered as per the facility's protocol at 2 MARTITA for 90 minutes with 2 air breaks.. On emergence from the hyperbaric chamber, his vitals were stable and he was discharged in stable condition. He had bilateral ear tubes placed on 04 April 2020 and has been tolerating treatments well. Pre- and post-treatment blood glucose readings as documented. Past Medical History Chronic Problems (Last Reviewed 04/24/20 @ 15:[address] 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) Diabetes (Chronic) Type 2 diabetes mellitus (Chronic) Obstructive sleep apnea (Chronic) Uncontrolled diabetes mellitus (Chronic) Diabetic infection of left foot (Chronic) Osteomyelitis of great toe of left foot (Chronic) Morbid obesity due to excess calories (Chronic) Tobacco dependence due to cigarettes (Chronic) Diabetic neuropathy (Chronic) Hypertension (Chronic) 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) Allergies/Adverse Reactions: Allergies No Known Allergies Allergy (Verified 04/24/20 14:46) Home Medications: Ambulatory Orders Medication Instructions Recorded Calcium Carbonate [Calcium] 500 mg PO DAILY 06/23/17 Multivitamin [Multiple Vitamins] 1 ea PO DAILY 06/23/17 aspirin 81 mg tablet,delayed 81 mg PO DAILY 08/12/19 release atorvastatin 40 mg tablet 40 mg PO DAILY 10/18/19 bupropion HCl 150 mg 24 hr tablet, 150 mg PO BID tab 10/18/19 extended release lisinopril 10 mg tablet 10 mg PO DAILY 10/18/19 tamsulosin 0.4 mg capsule 0.4 mg PO DAILY@1730 cap 10/18/19 blood sugar diagnostic See Rx Instructions .ROUTE 10/28/19 .MEDSUPPLY #100 ea lancets 33 gauge See Rx Instructions .ROUTE 10/28/19 .MEDSUPPLY #100 ea gabapentin 300 mg capsule 600 mg PO TIDCM cap 04/24/20 insulin regular hum U-500 conc 145 unit SC TID ml 04/24/20 Maternal Family History: Family History (Last Reviewed 04/24/20 @ 15:[address] Juan Arteaga MD) Father Myocardial infarction Heart disease Mother Kidney disease Diabetes Sister Asthma Breast cancer Hypertension Brother Alcoholism Melanoma Family History: Diabetes, Renal Disease - on dialysis Paternal Family History: Family History (Last Reviewed 04/24/20 @ 15:[address] Juan Arteaga MD) Father Myocardial infarction Heart disease Mother Kidney disease Diabetes Sister Asthma Breast cancer Hypertension Brother Alcoholism Melanoma Family History: Heart Disease Sibling Family History: Family History (Last Reviewed 04/24/20 @ 15:[address] Juan Arteaga MD) Father Myocardial infarction Heart disease Mother Kidney disease Diabetes Sister Asthma Breast cancer Hypertension Brother Alcoholism Melanoma Family History: Cancer - breast cancer in his sister Smoking Status: Heavy Smoker (>10/day) Physical Exam Vital Signs Temp Pulse Resp BP 96.6 F L 84 18 146/73 H 04/27/20 09:13 04/27/20 09:13 04/27/20 09:13 04/27/20 09:13 General: Alert, Oriented x3, Cooperative, No apparent distress HEENT: Atraumatic, TM's Clear Lungs: Clear to auscultation, Normal air movement Cardiovascular: Regular rate, Regular Rhythm Psych/Mental Status: Normal Affect, Appropriate, Alert and oriented to time, place, person, mood and affect Assessment/Plan Active Problems (Last Reviewed 04/24/20 @ 15:[address] Juan Arteaga MD) Left ankle pain (Acute) Colonization status (Acute) Chronic ulcer of left foot with fat layer exposed (Chronic) Delayed wound healing (Chronic) Type 2 diabetes mellitus with diabetic polyneuropathy (Chronic) Treatment Course Number Number of HBO Treatments 30 Ordered Treatment Course Number 1 Treatment # 16 Chamber # [id number] Chamber Type Monoplace HBO Diagnosis/Indication Diagnosis/Indication(s) for Left Diabetic Foot Ulcer,Standard/Conservative Hyperbaric Therapy Classification - [place] Grade 2 Grading (Diabetic Ulcer) [] Classification - [place] Grade 2 Grading (Diabetic Ulcer) [] Classification - [place] Grade 3 Grading (Diabetic Ulcer) Diabetes - Detail Diabetes Diabetes Type II Diabetes Control Uncontrolled Left Extremity Ulcer, Other part of Foot Treatment Plan MARTITA (Atmospheric Absolute) 2 Number of Minutes 90 Number of Air Breaks 2 He is tolerating hyperbaric oxygen therapy well which will be continued as per his medical plan.
[2020-04-28 09:29] VITALS: BP 148/70; BP 155/84; PULSE 76; PULSE 84; RESP 16; RESP 18; TEMP 35.8
[2020-04-28 09:30] LABS: Bedside Glucose 149 mg/dL (70-110)
[2020-04-28 11:31] LABS: Bedside Glucose 125 mg/dL (70-110)
[2020-04-28 15:55] LABS: Bedside Glucose 120 mg/dL (70-110)
[2020-04-28 15:55] LABS: Bedside Glucose 118 mg/dL (70-110)
[2020-04-28 15:55] LABS: Bedside Glucose 115 mg/dL (70-110)
[2020-05-01 08:45] LABS: Bedside Glucose 236 mg/dL (70-110)
--- NOTE | 2020-05-01 09:52 | PCM.HBO.PN ---
History of Present Illness Date of Service: 05/01/20 Presenting Chief Complaint: Diabetic left foot ulceration, Mancilla Grade 3, with infection GEN SIM is a 65 year old currently undergoing hyperbaric oxygen therapy for Mancilla Grade 3 diabetic left foot ulceration with infection/osteomyelitis Progress: This represents the 17th such session of hyperbaric oxygen therapy. Tolerance of hyperbaric oxygen therapy: Hyperbaric oxygen therapy was administered as per the facility's protocol at 2 MARTITA for 90 minutes with 2 air breaks.. On emergence from the hyperbaric chamber, his vitals were stable and he was discharged in stable condition. He had bilateral ear tubes placed on 2019 and has been tolerating treatments well. Pre- and post-treatment blood glucose readings as documented. Past Medical History Chronic Problems (Last Reviewed 04/24/20 @ 15:[address] 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) Diabetes (Chronic) Type 2 diabetes mellitus (Chronic) Obstructive sleep apnea (Chronic) Uncontrolled diabetes mellitus (Chronic) Diabetic infection of left foot (Chronic) Osteomyelitis of great toe of left foot (Chronic) Morbid obesity due to excess calories (Chronic) Tobacco dependence due to cigarettes (Chronic) Diabetic neuropathy (Chronic) Hypertension (Chronic) 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) Allergies/Adverse Reactions: Allergies No Known Allergies Allergy (Verified 04/24/20 14:46) Home Medications: Ambulatory Orders Medication Instructions Recorded Calcium Carbonate [Calcium] 500 mg PO DAILY 06/23/17 Multivitamin [Multiple Vitamins] 1 ea PO DAILY 06/23/17 aspirin 81 mg tablet,delayed 81 mg PO DAILY 08/12/19 release atorvastatin 40 mg tablet 40 mg PO DAILY 10/18/19 bupropion HCl 150 mg 24 hr tablet, 150 mg PO BID tab 10/18/19 extended release lisinopril 10 mg tablet 10 mg PO DAILY 10/18/19 tamsulosin 0.4 mg capsule 0.4 mg PO DAILY@1730 cap 10/18/19 blood sugar diagnostic See Rx Instructions .ROUTE 10/28/19 .MEDSUPPLY #100 ea lancets 33 gauge See Rx Instructions .ROUTE 10/28/19 .MEDSUPPLY #100 ea gabapentin 300 mg capsule 600 mg PO TIDCM cap 04/24/20 insulin regular hum U-500 conc 145 unit SC TID ml 04/24/20 Doxycycline Hyclate 100 mg PO BID 10 Days #21 cap 04/28/20 Maternal Family History: Family History (Last Reviewed 04/24/20 @ 15:[address] Juan Arteaga MD) Father Myocardial infarction Heart disease Mother Kidney disease Diabetes Sister Asthma Breast cancer Hypertension Brother Alcoholism Melanoma Family History: Diabetes, Renal Disease - on dialysis Paternal Family History: Family History (Last Reviewed 04/24/20 @ 15:[address] Juan Arteaga MD) Father Myocardial infarction Heart disease Mother Kidney disease Diabetes Sister Asthma Breast cancer Hypertension Brother Alcoholism Melanoma Family History: Heart Disease Sibling Family History: Family History (Last Reviewed 04/24/20 @ 15:[address] Juan Arteaga MD) Father Myocardial infarction Heart disease Mother Kidney disease Diabetes Sister Asthma Breast cancer Hypertension Brother Alcoholism Melanoma Family History: Cancer - breast cancer in his sister Smoking Status: Heavy Smoker (>10/day) Physical Exam Vital Signs Temp Pulse Resp BP 96.5 F L 84 18 148/70 H 04/28/20 09:29 04/28/20 09:29 04/28/20 09:29 04/28/20 09:29 General: Alert, Oriented x3, Cooperative, No apparent distress HEENT: Atraumatic, TM's Clear Lungs: Clear to auscultation, Normal air movement Cardiovascular: Regular rate, Regular Rhythm Psych/Mental Status: Normal Affect, Appropriate, Alert and oriented to time, place, person, mood and affect Assessment/Plan Treatment Course Number Number of HBO Treatments 30 Ordered Treatment Course Number 1 Treatment # 17 Chamber # [id number] Chamber Type Monoplace HBO Diagnosis/Indication Diagnosis/Indication(s) for Left Diabetic Foot Ulcer,Standard/Conservative Hyperbaric Therapy Classification - Mancilla Grade 2 Grading (Diabetic Ulcer) [] Classification - [place] Grade 2 Grading (Diabetic Ulcer) [] Classification - [place] Grade 3 Grading (Diabetic Ulcer) Diabetes - Detail Diabetes Diabetes Type II Diabetes Control Uncontrolled Left Extremity Ulcer, Other part of Foot Treatment Plan MARTITA (Atmospheric Absolute) 2 Number of Minutes 90 Number of Air Breaks 2 He is tolerating hyperbaric oxygen therapy well, which will be continued as per his medical treatment plan.
[2020-05-01 10:05] VITALS: BP 156/76; BP 168/72; PULSE 78; PULSE 86; RESP 16; RESP 18; TEMP 36.2
[2020-05-01 12:10] LABS: Bedside Glucose 180 mg/dL (70-110)
[2020-05-02 08:30] LABS: Bedside Glucose 213 mg/dL (70-110)
[2020-05-02 08:35] VITALS: BP 150/75; BP 158/79; PULSE 75; PULSE 88; RESP 16; RESP 18; TEMP 36.1; TEMP 36.9
[2020-05-02 10:41] LABS: Bedside Glucose 190 mg/dL (70-110)
--- NOTE | 2020-05-02 13:36 | HBO.PN.PCM_ITS ---
History of Present Illness Date of Service: 05/02/20 Presenting Chief Complaint: Diabetic left foot ulceration, Mancilla Grade 3, with infection GEN SIM is a 65 year old currently undergoing hyperbaric oxygen therapy for Manc[place] Grade 3 diabetic left foot ulceration with infection/osteomyelitis Progress: This represents the 18th such session of hyperbaric oxygen therapy. Tolerance of hyperbaric oxygen therapy: Hyperbaric oxygen therapy was administered as per the facility's protocol at 2 MARTITA for 90 minutes with 2 5- minute air breaks.. The patient tolerated hyperbaric oxygen therapy well, without complaints or complications. Upon emergence from the hyperbaric chamber, his vitals were stable and he was discharged in stable condition. He had bilateral ear tubes placed on 04/04/2020 and has been tolerating treatments well. Pre- and post-treatment blood glucose readings as documented. Past Medical History Chronic Problems (Last Reviewed 04/24/20 @ 15:[address] 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) Diabetes (Chronic) Type 2 diabetes mellitus (Chronic) Obstructive sleep apnea (Chronic) Uncontrolled diabetes mellitus (Chronic) Diabetic infection of left foot (Chronic) Osteomyelitis of great toe of left foot (Chronic) Morbid obesity due to excess calories (Chronic) Tobacco dependence due to cigarettes (Chronic) Diabetic neuropathy (Chronic) Hypertension (Chronic) 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) Allergies/Adverse Reactions: Allergies No Known Allergies Allergy (Verified 04/24/20 14:46) Home Medications: Ambulatory Orders Medication Instructions Recorded Calcium Carbonate [Calcium] 500 mg PO DAILY 06/23/17 Multivitamin [Multiple Vitamins] 1 ea PO DAILY 06/23/17 aspirin 81 mg tablet,delayed 81 mg PO DAILY 08/12/19 release atorvastatin 40 mg tablet 40 mg PO DAILY 10/18/19 bupropion HCl 150 mg 24 hr tablet, 150 mg PO BID tab 10/18/19 extended release lisinopril 10 mg tablet 10 mg PO DAILY 10/18/19 tamsulosin 0.4 mg capsule 0.4 mg PO DAILY@1730 cap 10/18/19 blood sugar diagnostic See Rx Instructions .ROUTE 10/28/19 .MEDSUPPLY #100 ea lancets 33 gauge See Rx Instructions .ROUTE 10/28/19 .MEDSUPPLY #100 ea gabapentin 300 mg capsule 600 mg PO TIDCM cap 04/24/20 insulin regular hum U-500 conc 145 unit SC TID ml 04/24/20 Doxycycline Hyclate 100 mg PO BID 10 Days #21 cap 04/28/20 Maternal Family History: Family History (Last Reviewed 04/24/20 @ 15:[address] Juan Arteaga MD) Father Myocardial infarction Heart disease Mother Kidney disease Diabetes Sister Asthma Breast cancer Hypertension Brother Alcoholism Melanoma Family History: Diabetes, Renal Disease - on dialysis Paternal Family History: Family History (Last Reviewed 04/24/20 @ 15:[address] Juan Arteaga MD) Father Myocardial infarction Heart disease Mother Kidney disease Diabetes Sister Asthma Breast cancer Hypertension Brother Alcoholism Melanoma Family History: Heart Disease Sibling Family History: Family History (Last Reviewed 04/24/20 @ 15:[address] Juan Arteaga MD) Father Myocardial infarction Heart disease Mother Kidney disease Diabetes Sister Asthma Breast cancer Hypertension Brother Alcoholism Melanoma Family History: Cancer - breast cancer in his sister Smoking Status: Heavy Smoker (>10/day) Physical Exam Vital Signs Temp Pulse Resp BP 96.9 F L 88 18 150/75 H 05/02/20 08:35 05/02/20 08:35 05/02/20 08:35 05/02/20 08:35 General: Alert, Oriented x3, Cooperative, No apparent distress, Well developed, Well nourished HEENT: Atraumatic, PERRLA, EOMI, Normocephalic Lungs: Normal air movement Psych/Mental Status: Normal Affect, Appropriate, Alert and oriented to time, place, person, mood and affect Assessment/Plan The patient appears to be tolerating hyperbaric oxygen therapy well, which will be continued as per the patient's medical plan. Treatment Course Number Number of HBO Treatments 30 Ordered Treatment Course Number 1 Treatment # 18 Chamber # [id number] Chamber Type Monoplace HBO Diagnosis/Indication Diagnosis/Indication(s) for Left Diabetic Foot Ulcer,Standard/Conservative Hyperbaric Therapy Classification - Mancilla Grade 2 Grading (Diabetic Ulcer) [] Classification - [place] Grade 2 Grading (Diabetic Ulcer) [] Classification - [place] Grade 3 Grading (Diabetic Ulcer) Diabetes - Detail Diabetes Diabetes Type II Diabetes Control Uncontrolled Left Extremity Ulcer, Other part of Foot Treatment Plan MARTITA (Atmospheric Absolute) 2 Number of Minutes 90 Number of Air Breaks 2
[2020-05-03 08:15] VITALS: BP 149/78; BP 156/77; PULSE 78; PULSE 93; RESP 16; RESP 18; TEMP 36.2; TEMP 36.9
[2020-05-03 08:21] LABS: Bedside Glucose 215 mg/dL (70-110)
--- NOTE | 2020-05-03 10:12 | HBO.PN.PCM_ITS ---
History of Present Illness Date of Service: 05/03/20 Presenting Chief Complaint: Diabetic left foot ulceration, Manc[place] Grade 3, with infection GEN SIM is a 65 year old currently undergoing hyperbaric oxygen therapy for Manc[place] Grade 3 diabetic left foot ulceration with infection/osteomyelitis Progress: This represents the 19th such session of hyperbaric oxygen therapy. Tolerance of hyperbaric oxygen therapy: Hyperbaric oxygen therapy was administered as per the facility's protocol at 2 MARTITA for 90 minutes with 2 5- minute air breaks.. The patient tolerated hyperbaric oxygen therapy well, without complaints or complications. Upon emergence from the hyperbaric chamber, his vitals were stable and he was discharged in stable condition. He had bilateral ear tubes placed on 04/04/2020 and has been tolerating treatments well. Pre- and post-treatment blood glucose readings as documented. Past Medical History Chronic Problems (Last Reviewed 04/24/20 @ 15:[address] 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) Diabetes (Chronic) Type 2 diabetes mellitus (Chronic) Obstructive sleep apnea (Chronic) Uncontrolled diabetes mellitus (Chronic) Diabetic infection of left foot (Chronic) Osteomyelitis of great toe of left foot (Chronic) Morbid obesity due to excess calories (Chronic) Tobacco dependence due to cigarettes (Chronic) Diabetic neuropathy (Chronic) Hypertension (Chronic) 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) Allergies/Adverse Reactions: Allergies No Known Allergies Allergy (Verified 04/24/20 14:46) Home Medications: Ambulatory Orders Medication Instructions Recorded Calcium Carbonate [Calcium] 500 mg PO DAILY 06/23/17 Multivitamin [Multiple Vitamins] 1 ea PO DAILY 06/23/17 aspirin 81 mg tablet,delayed 81 mg PO DAILY 08/12/19 release atorvastatin 40 mg tablet 40 mg PO DAILY 10/18/19 bupropion HCl 150 mg 24 hr tablet, 150 mg PO BID tab 10/18/19 extended release lisinopril 10 mg tablet 10 mg PO DAILY 10/18/19 tamsulosin 0.4 mg capsule 0.4 mg PO DAILY@1730 cap 10/18/19 blood sugar diagnostic See Rx Instructions .ROUTE 10/28/19 .MEDSUPPLY #100 ea lancets 33 gauge See Rx Instructions .ROUTE 10/28/19 .MEDSUPPLY #100 ea gabapentin 300 mg capsule 600 mg PO TIDCM cap 04/24/20 insulin regular hum U-500 conc 145 unit SC TID ml 04/24/20 Doxycycline Hyclate 100 mg PO BID 10 Days #21 cap 04/28/20 Maternal Family History: Family History (Last Reviewed 04/24/20 @ 15:[address] Juan Arteaga MD) Father Myocardial infarction Heart disease Mother Kidney disease Diabetes Sister Asthma Breast cancer Hypertension Brother Alcoholism Melanoma Family History: Diabetes, Renal Disease - on dialysis Paternal Family History: Family History (Last Reviewed 04/24/20 @ 15:[address] Juan Arteaga MD) Father Myocardial infarction Heart disease Mother Kidney disease Diabetes Sister Asthma Breast cancer Hypertension Brother Alcoholism Melanoma Family History: Heart Disease Sibling Family History: Family History (Last Reviewed 04/24/20 @ 15:[address] Juan Arteaga MD) Father Myocardial infarction Heart disease Mother Kidney disease Diabetes Sister Asthma Breast cancer Hypertension Brother Alcoholism Melanoma Family History: Cancer - breast cancer in his sister Smoking Status: Heavy Smoker (>10/day) Physical Exam Vital Signs Temp Pulse Resp BP 97.2 F L 93 18 156/77 H 05/03/20 08:15 05/03/20 08:15 05/03/20 08:15 05/03/20 08:15 Assessment/Plan The patient appears to be tolerating hyperbaric oxygen therapy well, which will be continued as per the patient's medical plan. Treatment Course Number Number of HBO Treatments 30 Ordered Treatment Course Number 1 Treatment # 19 Chamber # [id number] Chamber Type Monoplace HBO Diagnosis/Indication Diagnosis/Indication(s) for Left Diabetic Foot Ulcer,Standard/Conservative Hyperbaric Therapy Classification - Manc[place] Grade 2 Grading (Diabetic Ulcer) [#2 right 5th metatarsal] Classification - [place] Grade 2 Grading (Diabetic Ulcer) [#1 Left Plantar medial] Classification - [place] Grade 3 Grading (Diabetic Ulcer) Diabetes - Detail Diabetes Diabetes Type II Diabetes Control Uncontrolled Left Extremity Ulcer, Other part of Foot Treatment Plan MARTITA (Atmospheric Absolute) 2 Number of Minutes 90 Number of Air Breaks 2
[2020-05-03 10:21] LABS: Bedside Glucose 151 mg/dL (70-110)
--- NOTE | 2020-05-09 06:40 | MRI_ITS ---
STUDY: MRI LEFT MIDFOOT REASON FOR EXAM: Male, 65 years old. osteomyelitis, ulcer left foot, hx prior amputation toes 1 year ago, new wound distal tarsals x 2 months TECHNIQUE: Standardized fat and water weighted pulse sequences were obtained in all 3 orthogonal planes. COMPARISON: X-ray dated 04/26/2020. FINDINGS: Extensive forefoot amputation at the level of the metatarsals. Extensive skin thickening with ulcerations. No rim-enhancing organized collections. No acute fracture. No acute dislocation. No acute cortical destruction. Tibiotalar cartilage preserved. Subtalar cartilage preserved. Mild talonavicular arthrosis. Normal calcaneocuboid cartilage. Mild/moderate navicular cuneiform joint arthrosis. Moderate tarsometatarsal joint arthrosis. Diffuse muscle atrophy of the mid foot/hindfoot. Truncated flexor and extensor tendons without acute injury. Lisfranc ligament intact. Plantar spur with chronic plantar fascial thickening (sagittal image 16 series 6). MRI/Lower Ext No Joint W/WO Cont IMPRESSION: No acute osteomyelitis or abscess formation Cellulitis with skin thickening and ulcerations Extensive midfoot amputations with moderate osteoarthritis Plantar spur with chronic plantar fascial thickening Diffuse muscle atrophy Electronically Signed: Roni Le DO at 9:54 EDT Tel , Service support ,
--- NOTE | 2020-05-10 15:03 | PN.ID_ITS ---
Subjective: Had increased redness and drainage from L foot. No fever, did have red streaking up leg. Started on doxy for 2 week course. Cx sent, MRI done. S treaking is gone, but wound not improving. No n/v/d. - Physical Exam Vitals/I&O's: Vital Signs Temp Pulse Resp BP 97.2 F L 93 18 156/77 H 05/03/20 08:15 05/03/20 08:15 05/03/20 08:15 05/03/20 08:15 Body Mass Index (BMI) 42.8 Finger Stick Blood Glucose 137 General: Alert, Cooperative, No apparent distress Lungs: Clear to auscultation, Normal air movement Cardiovascular: Regular rate, Regular Rhythm Abdomen: Soft, Non Tender, Non-Distended Skin: Ulcer/ Wound - plantar surface, now s/p debridement, bleeding Medical Necessity - Tobacco Use Smoking Status: Heavy Smoker (>10/day) Route of nutrition/ use of supplements: [] Nutritional Intake: [] IV Site: [] Dyer Catheter: [] - Assessment/Plan Antibiotics: [] Assessment/Plan: [] L foot MRSA infected ulcer - R to tetracycline, so will see if bactrim can help. GFR normal. Will send to pharmacy. Will send lab order to [facility] for end of s week/early next week. Counseled him re: potential side effects including rash and DEAN. Return to clinic as needed, d/w Dr. Claudio.
--- NOTE | 2020-05-10 16:06 | PN.PCM_ITS ---
(1) Ulcer of left foot with muscle involvement without evidence of necrosis Status: Acute Current Visit: Yes Code(s): L97.525 - Non-pressure chronic ulcer of other part of left foot with muscle involvement without evidence of necrosis (2) Cellulitis of left lower limb Status: Acute Current Visit: Yes Code(s): L03.116 - Cellulitis of left lower limb (3) MRSA (methicillin resistant staph aureus) culture positive Status: Acute Current Visit: Yes Code(s): Z22.322 - Carrier or suspected carrier of Methicillin resistant Staphylococcus aureus (4) Obesity Status: Chronic Current Visit: Yes Qualifiers: Obesity type: due to excess calories Obesity classification: adult class 3 (BMI >= 40) Serious obesity comorbidity presence: with serious comorbidity Body mass index: BMI 45.0-49.9 Qualified Code(s): E66.01 - Morbid (severe) obesity due to excess calories; Z68.42 - Body mass index (BMI) 45.0-49.9, adult Code(s): E66.9 - Obesity, unspecified (5) Tobacco abuse Status: Chronic Current Visit: Yes Code(s): Z72.0 - Tobacco use (6) Delayed wound healing Status: Chronic Current Visit: Yes Code(s): T14.8XXD - Other injury of unspecified body region, subsequent encounter (7) Polyneuropathy due to type 2 diabetes mellitus Status: Chronic Current Visit: Yes Code(s): E11.42 - Type 2 diabetes mellitus with diabetic polyneuropathy Type of Wound Date of Service: 05/10/20 Chief Complaint: Diabetic left foot ulceration, [place] Grade 3, with infection History of Wound: This 65-year-old male with multiple comorbidities was seen today for left foot ulcer. His left foot ulcer onset was 12-07-2019. He is previously known to me and had a left transmetatarsal amputation performed previously. That has since been healed. He has been changing the dressing daily with dakin solution wet to dry dressing and offloads with a cam walker boot and surgical shoes. However, he presents with a regular sneaker today. He does not have a knee roller today. He denies fever, chill, nausea, vomiting, or diarrhea. He denies odor or redness. He has been washing with the antimicrobial soap as advised. He saw vascular surgery reports that he has some additional procedure scheduled. He has been taking doxycycline as advised. He has been undergoing hyperbaric oxygen therapy sessions. Progress of Wound: stable with delayed healing - Physical Exam Vital Signs Temp Pulse Resp BP 97.2 F L 93 18 156/77 H 05/03/20 08:15 05/03/20 08:15 05/03/20 08:15 05/03/20 08:15 General: Alert, Oriented x3, Cooperative, No apparent distress HEENT: Atraumatic Extremities: No cyanosis, Capillary Refill Less than 3 Seconds, No Calf Tenderness, Diminished Peripheral Pulses, Edema Skin: Ulcer/ Wound - No purulence, erythema, streaking, odor. There is continued anteriorization avoiding other central tendon exposed. There continues to be macerated excessive callus formation. There is no probe to bone. No bogginess or fluctuance on palpation. No streaking. His adjacent skin is hairless and atrophic Musculoskeletal: No Tenderness to Palpation of Joints or Extremities, Muscle Wasting, - - Transmetatarsal amputation. His ankle dorsiflexion continues at least 90 degrees which is maintained from his surgical correction including gastrocnemius recession Neurological: - - Lack of epicritic sensation light touch is consistent with neuropathy status Psych/Mental Status: Normal Affect, Appropriate Debridement Note Wound debrided: plantar medial foot Laterality: Left Wound Grade/Stage: grade 3 Type of Debridement: Excisional debridement Anesthesia Used: 5% Lidocaine Gel Depth: in the subcutaneous layer Percentage of wound debrided: 100 Instrument Used: #15 blade Tissue Removed: fibrous, devitalized subcutaneous, biofilm, slough Severity: Fat Layer Exposed Amount of bleeding with debridement: Mild Bleeding Controlled with: Pressure Patient tolerated procedure well Assessment/Plan Clinical Impression(s) from Imaging Studies Foot X-Ray 04/26/20 12:28 IMPRESSION: No radiographic evidence of osteomyelitis. If there is further concern for osteomyelitis, consider correlation with three-phase bone scan or contrast-enhanced MRI. Electronically Signed: Stephane Hartley MD at 17:11 EDT Tel , Service support , Lower Extremity MRI 05/09/20 06:40 IMPRESSION: No acute osteomyelitis or abscess formation Cellulitis with skin thickening and ulcerations Extensive midfoot amputations with moderate osteoarthritis Plantar spur with chronic plantar fascial thickening Diffuse muscle atrophy Electronically Signed: Roni Le, at 9:54 EDT Tel , Service support , Active Problems (Last Reviewed 04/24/20 @ 15:[address] Juan Arteaga MD) Cellulitis of left lower limb (Acute) MRSA (methicillin resistant staph aureus) culture positive (Acute) Ulcer of left foot with muscle involvement without evidence of necrosis (Acute) Obesity (Chronic) Tobacco abuse (Chronic) Delayed wound healing (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) Assessment: Left plantar medial foot ulcer, [place] Grade 3 (recent status change from fat layer exposed to tendon layer exposure). The tendon is white and healthy in appearance without necrosis today. Cellulitis: MRSA. Chronic osteomyelitis left foot is treated medically at this time (AB and prior hyperbaric oxygen therapy). Post-left transmetatarsal amputation. Diabetes mellitus with neuropathy that is uncontrolled. Morbid obesity. Obstructive sleep apnea. Renal insufficiency, stage 2. Hypertension. Hyperlipidemia Plan: I reviewed and discussed his case. Subcutaneous excisional debridement was performed as noted in the clinical panel to the left foot. The large peripheral callus was also debrided. His ulcer is notably larger in size today and has deteriorated. I would like to consider advanced wound healing product application, epi-fix, and this will be considered after the quality of the left foot tissue has improved. Prior authorization has been initiated and he is not ready to proceed with this at this time due to his initial [id number] expenses. Aquacel Ag was applied today. Due to the amount of callus formation I am concerned that he still has moderate friction and force applied to the site especially because he walked in today wearing athletic sneakers. Compliance was reiterated. I discussed other offloading techniques such as using a walker or a knee roller. We will plan on performing a total contact cast and verbal consent was obtained today. This applied according standard protocol in a rectus position and well-padded manner. He tolerated this well. His noninvasive vascular studies were reviewed from which were normal and intervention was previously not recommended. I advised him to follow-up with all of Dr. Bonilla's recommendations to optimize his healing process. He has recently been seen and intervention is planned for arterial optimization. An updated bilateral duplex was also recommended to help with planning. He had an updated left foot x-ray which did not demonstrate any new progressive osseous destruction, soft tissue emphysema, fracture, dislocation, or foreign body. His culture demonstrated MRSA growth and he did have elevated white blood cell count of 11.2. He was started on doxycycline. A refill was provided. Now that the culture susceptibilities have developed it is noted that he does have an intermediate resistance to doxycycline. I recommend that he sees infectious disease because he is very high risk. I also recommended an MRI to confirm the extent of infection. This was reviewed today without radiographic evidence of osteomyelitis, abscess, or other acute findings. He was seen by infectious disease specialist, Dr. Pathak, who changed his oral antibiotics to Bactrim. Labs will be repeated in a sterile manner and orders were provided. To continue to work on decreasing glucose levels. He has a history of hyperglycemia. To continue to follow-up with nutritional services. To continue to follow-up as advised. He is currently making adjustments with his eating habits. He also follows up with edge stainer machine, Dr. Arteaga who is working with him to reduce his hemoglobin A1c with medication and behavioral changes. His other labs were reviewed including CBC and CMP. WBC of 12.4 is noted. ESR was updated at 54 and C-reactive protein was 14.3. Smoking cessation was discussed in detail and he was advised on the healing impairment associated with this. To continue with his smoking cessation program. I also recommend discontinuation of nicotine products for this also contributes to small vessel contraction. He is not demonstrating the anticipated improvement with hyperbaric oxygen therapy and this will be placed on hold. I answered all of his questions today. He will return for a total contact cast check midweek likely reapplication. To return to clinic in 1 [address] ([address] Claudio) or call sooner if questions, concerns, or progressive worsening.
[2020-05-17 14:38] VITALS: BP 144/66; PULSE 97; RESP 24; TEMP 36.8; BMI 42.8
[2020-05-17 14:42] VITALS: BP 166/66; PULSE 98; RESP 18; TEMP 36.5; BMI 42.8
--- NOTE | 2020-05-17 16:33 | PN.PCM_ITS ---
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: Acute Current Visit: Yes Code(s): L97.523 - Non-pressure chronic ulcer of other part of left foot with necrosis of muscle (2) Cellulitis of left lower limb Status: Acute Current Visit: Yes Code(s): L03.116 - Cellulitis of left lower limb (3) MRSA (methicillin resistant staph aureus) culture positive Status: Acute Current Visit: Yes Code(s): Z22.322 - Carrier or suspected carrier of Methicillin resistant Staphylococcus aureus (4) Obesity Status: Chronic Current Visit: Yes Qualifiers: Obesity type: due to excess calories Obesity classification: adult class 3 (BMI >= 40) Serious obesity comorbidity presence: with serious comorbidity Body mass index: BMI 45.0-49.9 Qualified Code(s): E66.01 - Morbid (severe) obesity due to excess calories; Z68.42 - Body mass index (BMI) 45.0-49.9, adult Code(s): E66.9 - Obesity, unspecified (5) Tobacco abuse Status: Chronic Current Visit: Yes Code(s): Z72.0 - Tobacco use (6) Delayed wound healing Status: Chronic Current Visit: Yes Code(s): T14.8XXD - Other injury of unspecified body region, subsequent encounter (7) Polyneuropathy due to type 2 diabetes mellitus Status: Chronic Current Visit: Yes Code(s): E11.42 - Type 2 diabetes mellitus with diabetic polyneuropathy Type of Wound Date of Service: 05/17/20 Chief Complaint: Diabetic left foot ulceration, Mancilla Grade 3, with infection History of Wound: This 65-year-old male with multiple comorbidities was seen today for left foot ulcer. His left foot ulcer onset was 12-07-2019. He is previously known to me and had a left transmetatarsal amputation performed previously. That has since been healed. He had a total contact cast applied last week and kept this clean, dry, and intact. His antibiotics were also changed to Bactrim. After about 2 days of taking this medication he noticed a rash and called the infectious disease office. He relates he was changed back to doxycycline however he is not sure that is the name of the medication. He relates he will be on this for an additional week. He denies diarrhea, fever, c hill, nausea, vomiting. Now that he is stabilizing, he has had he can return to the hyperbarics for continued benefits. Progress of Wound: Improving in quality and with size reduction this past week - Physical Exam Vital Signs Temp Pulse Resp BP 97.7 F L 98 18 166/66 H 05/17/20 14:42 05/17/20 14:42 05/17/20 14:42 05/17/20 14:42 General: Alert, Oriented x3, Cooperative, No apparent distress HEENT: Atraumatic Extremities: No cyanosis, Capillary Refill Less than 3 Seconds - All aspects of the transmetatarsal amputation stump site, No Calf Tenderness - Negative Ernie and Rangel sign bilateral. Adequate ankle dorsiflexion with the knee flexed and extended to over 90 degrees, left lower extremity. No bogginess or fluctuance on palpation. The compartments remain soft to palpate left, Diminished Peripheral Pulses, Edema - Decreased left Skin: Ulcer/ Wound - No purulence, erythema, streaking, odor, acute infection. His skin is atrophic and hairless. There is a remarkable reduction in maria m- ulcer callus noted and the ulcer size has also decreased. Decreased maria m-ulcer inflammation is noted. The ulcer bed on the plantar aspect of the foot is granular with central tendon noted and the tendon has some devitalized moist stringy consistency that is devitalized. There is no probing to bone, - - Is have some petechiae changes to bilateral lower extremities that are dry and now crusting and peeling Wound Measurements and Assessment WC - Nurse 1 - General Ulcer Measurement Start: 04/24/20 09:11 Freq: Status: Active Protocol: Activity Type Activity Date Activity User E-Sign Co-Sign Detail Recorded Client Recorded Date Recorded By Document 05/17/20 14:38 DL [id number] 05/17/20 14:51 DL Document 05/17/20 14:42 RB [id number] 05/17/20 14:44 RB 05/17/20 05/17/20 14:38 14:42 Wound Center Nurse 1 [Ulcer Assessment] #1 Left Plantar medial -Combined with other wound No -Current Size (cm) - Length 2.2 2 -Current Size (cm) - Width 2.5 2.2 -Current Size (cm) - Depth 0.5 0.4 -Total Square Cm 5.50 4.4 -Photo Taken No -Tunneling No -Undermining/Tunneling No -Circular Undermining No -Exudate Amt Small Small -Exudate Type Serosanguineous Serosanguineous -Wound Margin Thickened Flat & Intact -Granulation Amt Large (67-100%) Medium (34-66%) -Granulation Quality Haughton Haughton -Slough/Fibrin Yes -Necrosis Amt Small (1-33%) Medium (34-66%) -Necrotic Tissue Type Adherent Slough Adherent Slough -Structure Exposed N/A N/A -Texture (Maria M-wound Skin Appearance) Callus Assessed -Moisture (Maria M-wound Skin Appearance Dry/Scaly Assessed ) -Color (Maria M-wound Skin Appearance) Hemosiderin Assessed Staining -Temperature (Maria M-wound Skin No Abnormality No Abnormality Appearance) (Pt Warm) (Pt Warm) -Tenderness on Palpation (Maria M-wound No No Skin Appearance) -Ulcer Cleansing Wound Cleanser Wound Cleanser -Foul Odor after Cleansing No No -Anesthetic Used 4% Lidocaine Solution [Edema Assessment] -Lower Limb Edema Present Yes -Left Calf (cm) 47 -Left Ankle (cm) 27 WC - Nurse 2 - General Ulcer CM Notes Start: 05/11/20 07:13 Freq: Status: Active Protocol: Activity Type Activity Date Activity User E-Sign Co-Sign Detail Recorded Client Recorded Date Recorded By Document 05/17/20 15:21 JF [id number] 05/17/20 15:34 05/17/20 15:21 Wound Center Nurse 2 [Procedure/Treatment] #1 Left Plantar medial -Time 15:22 -Correct Patient Yes -Correct Side, Site, Position Yes -Correct Procedure Yes -Procedure Performed Yes -Type of Procedure Debridement -Clinical Debridement Subcutaneous -Tissue Removed Tendon -Post Debridement (cm) - Length 2.1 -Post Debridement (cm) - Width 2.5 -Post Debridement (cm) - Depth 0.5 -Total Square (Post) (cm) 5.25 -Area of Debridement (cm) - Length 2.1 -Area of Debridement (cm) - Width 2.5 -Total Square (Area) (cm) 5.25 -Tunneling No -Undermining/Tunneling No -Circular Undermining No -Wound/Ulcer Outcome Not Healed -Ulcer Cleansing Rinsed/ Irrigated with Saline -Foul Odor after Cleansing No -Bioengineered Tissue Yes -Type of Bioengineered Tissue Epifix -Expiration Date 01/20/25 -Product Lot Number [id number] -Percent Used 100 -Saline Lot Number [id number] -Bleeding Controlled with Pressure -Offloading Yes -Type of Offloading Total Contact Cast (TCC) - Left ($) -Treatment Response Procedure Tolerated Well -Debridement - Subq, 1st 20sq cm No -Epifix (per sq cm) 4 [See Physician Procedure note for Specifics] - Nurse 3 - General Ulcer D/C NN Start: 05/17/20 15:35 Freq: Status: Active Protocol: Activity Type Activity Date Activity User E-Sign Co-Sign Detail Recorded Client Recorded Date Recorded By Document 05/16/20 20:00 [facility] [id number] 05/17/20 15:37 [facility] 05/16/20 20:00 Wound Care Nurse 3 [Wound Dressing] #1 Left Plantar medial -Primary Dressing Applied Other -Other Dressing EPIFIX PER MD -Primary Dressing Covered/Secured Other with -Other Covering TCC UNDERCAST PER Aamir ROBERTS RN [Post Procedure Tolerated] -Treatment Response Procedure Tolerated Well Pain Scale: 0-10 Numeric [Pain] -Is Patient Pain Free? Yes - Visit Discharge [Visit Discharge Information] -Discharge Condition Stable -Ambulatory Status Ambulatory -Transportation Private Auto [Facility Notification] -Facility Type Home Health Musculoskeletal: No Tenderness to Palpation of Joints or Extremities, Muscle Wasting, - - Left transmetatarsal amputation Neurological: - - Lack of normal epicritic sensation light touch is consistent with his neuropathy status Psych/Mental Status: Normal Affect, Appropriate Debridement Note Post-Debridement Measurements/Treatment - Nurse 2 - General Ulcer CM Notes Start: 05/11/20 07:13 Freq: Status: Active Protocol: Activity Type Activity Date Activity User E-Sign Co-Sign Detail Recorded Client Recorded Date Recorded By Document 05/11/20 07:18 PL [id number] 05/11/20 07:19 PL Document 05/17/20 15:21 JF [id number] 05/17/20 15:34 JF 05/11/20 05/17/20 07:18 15:21 Wound Center Nurse 2 #1 Left Plantar medial -Time 14:33 15:22 -Correct Patient Yes Yes -Correct Side, Site, Position Yes Yes -Correct Procedure Yes Yes -Procedure Performed Yes Yes -Type of Procedure Debridement Debridement -Clinical Debridement Subcutaneous Subcutaneous -Tissue Removed Subcutaneous Tendon -Post Debridement (cm) - Length 2.2 2.1 -Post Debridement (cm) - Width 2.5 2.5 -Post Debridement (cm) - Depth 0.5 0.5 -Total Square (Post) (cm) 5.50 5.25 -Area of Debridement (cm) - Length 2.2 2.1 -Area of Debridement (cm) - Width 2.5 2.5 -Total Square (Area) (cm) 5.50 5.25 -Tunneling No No -Undermining/Tunneling No No -Circular Undermining No No -Wound/Ulcer Outcome Not Healed Not Healed -Ulcer Cleansing Rinsed/ Irrigated with Saline -Foul Odor after Cleansing No -Bioengineered Tissue No Yes -Type of Bioengineered Tissue Epifix -Expiration Date 01/20/25 -Product Lot Number [id number] -Percent Used 100 -Saline Lot Number [id number] -Bleeding Controlled with Pressure -Offloading Yes -Type of Offloading Total Contact Total Contact Cast (TCC) - Cast (TCC) - Left ($) Left ($) -Treatment Response Procedure Tolerated Well -Debridement - Subq, 1st 20sq cm Yes No -Epifix (per sq cm) 4 Pain Scale: 0-10 Numeric Is Patient Pain Free? Yes - Nurse 3 - General Ulcer D/C NN Start: 05/17/20 15:35 Freq: Status: Active Protocol: Activity Type Activity Date Activity User E-Sign Co-Sign Detail Recorded Client Recorded Date Recorded By Document 05/16/20 20:00 [facility] [id number] 05/17/20 15:37 [facility] 05/16/20 20:00 Wound Care Nurse 3 -Primary Dressing Applied Other -Other Dressing EPIFIX PER MD -Primary Dressing Covered/Secured with Other -Other Covering TCC UNDERCAST PER R ARMANDO RN Treatment Response Procedure Tolerated Well Pain Scale: 0-10 Numeric Is Patient Pain Free? Yes - Visit Discharge Discharge Condition Stable Ambulatory Status Ambulatory Transportation [facility] Facility Type Home Health Wound debrided: plantar medial foot Laterality: Left Wound Grade/Stage: grade 3 Type of Debridement: Excisional debridement Anesthesia Used: 5% Lidocaine Gel Depth: to muscle Percentage of wound debrided: 100, 30 - (central tendon, flexor digitorum longus) Instrument Used: #15 blade, Forceps Tissue Removed: fibrous, devitalized subcutaneous and tendon, biofilm, slough Severity: Necrosis of Muscle Amount of bleeding with debridement: Mild Bleeding Controlled with: Pressure Patient tolerated procedure well Assessment/Plan Clinical Impression(s) from Imaging Studies Foot X-Ray 04/26/20 12:28 IMPRESSION: No radiographic evidence of osteomyelitis. If there is further concern for osteomyelitis, consider correlation with three-phase bone scan or contrast-enhanced MRI. Electronically Signed: Stephane Hartley MD at 17:11 EDT Tel , Service support , Lower Extremity MRI 05/09/20 06:40 IMPRESSION: No acute osteomyelitis or abscess formation Cellulitis with skin thickening and ulcerations Extensive midfoot amputations with moderate osteoarthritis Plantar spur with chronic plantar fascial thickening Diffuse muscle atrophy Electronically Signed: Roni Le DO at 9:54 EDT Tel , Service support , Active Problems (Last Reviewed 04/24/20 @ 15:[address] Juan Arteaga MD) Cellulitis of left lower limb (Acute) MRSA (methicillin resistant staph aureus) culture positive (Acute) Ulcer of left foot with muscle involvement without evidence of necrosis (Acute) Ulcer of left foot with necrosis of muscle (Acute) Obesity (Chronic) Tobacco abuse (Chronic) Delayed wound healing (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) Assessment: Left plantar medial foot ulcer, Mancilla Grade 3 (recent status change from fat layer exposed to tendon layer exposure now that is devitalized). The peripheral ulcer bed has improvement in granulation and the overall size has reduced. Cellulitis: MRSA. Chronic osteomyelitis left foot is treated medically at this time (AB and prior hyperbaric oxygen therapy). Post-left transmetatarsal amputation. Diabetes mellitus with neuropathy that is uncontrolled. Morbid obesity. Obstructive sleep apnea. Renal insufficiency, stage 2. Hypertension. Hyperlipidemia Plan: I reviewed and discussed his case. Subcutaneous excisional debridement was performed as noted in the clinical panel to the left foot. The peripheral callus was also debrided. His ulcer is notably smaller in size today the quality has significantly improved. However, there is devitalized central tendon and this was debrided to healthy bleeding tissue. I would like to consider advanced wound healing product application, epi-fix, and verbal consent was obtained today. The benefits, indications, anticipated application, healing time management were reviewed. This was applied according standard protocol and further secured with a wound veil and Steri-Strips. He tolerated this well. He did well with a total contact cast last week and there is been significant reduction in inflammation and callus formation. I recommend application today. Verbal consent was obtained and this was applied according to standard protocol in a neutral position well-padded manner. He tolerated this well. He is advised to keep this clean, dry, and intact until follow-up next week. I advised him to obtain a shower bag so we can date otherwise. Prior to the application of this advanced product and cast antimicrobial Hibiclens soap and water were used to wash limb. I discussed other offloading techniques such as u sing a walker or a knee roller. His noninvasive vascular studies were reviewed from which were normal and intervention was previously not recommended. I advised him to follow-up with all of Dr. Bonilla's recommendations to optimize his healing process. He has recently been seen and intervention is planned for arterial optimization. An updated bilateral duplex was also recommended to help with planning. He had an updated left foot x-ray which did not demonstrate any new progressive osseous destruction, soft tissue emphysema, fracture, dislocation, or foreign body. His culture demonstrated MRSA growth and he did have elevated white blood cell count of 11.2. He was on doxycycline and eventually transitioning to Bactrim under the management of infectious disease. He reports a reaction to Bactrim and his antibiotics were changed again. The patient reports he is on doxycycline again. I would like to confirm will request infectious disease documentation. I recommend that he sees infectious disease because he is very high risk. I also previously recommended an MRI to confirm the extent of infection. This was reviewed during his other recent visit without radiographic evidence of acute osteomyelitis, abscess, or other acute findings. He had a history of chronic refractory osteomyelitis that is documented from earlier this year. To continue to work on decreasing glucose levels. He has a history of hyperglycemia. To continue to follow-up with nutritional services. To continue to follow-up as advised. He is currently making adjustments with his eating habits. He also follows up with rotary driller helper, Dr. Arteaga who is working with him to reduce his hemoglobin A1c with medication and behavioral changes. His other labs were reviewed including CBC and CMP. WBC of 12.4 is noted. ESR was updated at 54 and C-reactive protein was 14.3. Smoking cessation was discussed in detail and he was advised on the healing impairment associated with this. To continue with his smoking cessation program. I also recommend discontinuation of nicotine products for this also contributes to small vessel contraction. He has demonstrated appropriate stabilization from an ulcer standpoint with recent quality and size improvement. His infection also appears to be stabilizing. I recommend resuming hyperbaric oxygen therapy. This is medically necessary. Is noted his nutrition, vascular, and medical status is optimized. I advised him of the benefits. Additional insurance authorization will be pursued at this time. The patient is amendable and states he is ready to resume. I answered all of his questions today. To return to clinic in 1 week or call sooner if questions, concerns, or progressive worsening.
== END 2020-05-22 23:59 ==
LOC: WC 14:30
PROVIDERS: PCP Family Medicine Geriatric Medicine; Referring Provider Family Medicine; Visit Provider Family Medicine
DX: E11.621 Type 2 diabetes mellitus with foot ulcer (principal); E11.42 Type 2 diabetes mellitus with diabetic polyneuropathy; L97.523 Non-pressure chronic ulcer of other part of left foot with necrosis of muscle; L97.522 Non-pressure chronic ulcer of other part of left foot with fat layer exposed; B95.62 Methicillin resistant Staphylococcus aureus infection as the cause of diseases classified elsewhere; L03.116 Cellulitis of left lower limb; E66.01 Morbid (severe) obesity due to excess calories; Z68.42 Body mass index [BMI] 45.0-49.9, adult; E78.5 Hyperlipidemia, unspecified; G47.33 Obstructive sleep apnea (adult) (pediatric); E11.69 Type 2 diabetes mellitus with other specified complication; M86.672 Other chronic osteomyelitis, left ankle and foot; M19.072 Primary osteoarthritis, left ankle and foot; E11.22 Type 2 diabetes mellitus with diabetic chronic kidney disease; I12.9 Hypertensive chronic kidney disease with stage 1 through stage 4 chronic kidney disease, or unspecified chronic kidney disease; N18.2 Chronic kidney disease, stage 2 (mild); E78.2 Mixed hyperlipidemia; F17.210 Nicotine dependence, cigarettes, uncomplicated; Z79.899 Other long term (current) drug therapy; Z79.82 Long term (current) use of aspirin
CPT/HCPCS: 11042; 15275; 29445; 36415; 73630; 73720; 82962; 85025; 85652; 86140; 87070; 87075; 87077; 87186; 87205; 87640; 97803; 99183; A9575; Q4186; G0277

== ENCOUNTER 2020-05-25 15:28 | Outpatient (RCR) | payer MEDICARE, MEDICAID, SELFPAY ==
[2020-05-24 09:49] VITALS: BMI 42.8
== END 2020-06-21 23:59 ==
LOC: DC 15:28
PROVIDERS: PCP Family Medicine Geriatric Medicine; Visit Provider Podiatrist
DX: Z71.3 Dietary counseling and surveillance (principal); E66.9 Obesity, unspecified; Z68.41 Body mass index [BMI] 40.0-44.9, adult; E11.42 Type 2 diabetes mellitus with diabetic polyneuropathy
CPT/HCPCS: G0109

== ENCOUNTER 2020-06-21 08:00 | Outpatient (RCR) | payer MEDICARE, MEDICAID, SELFPAY ==
[2020-05-23 00:45] VITALS: BP 166/66; PULSE 98; RESP 18; TEMP 36.5
[2020-05-24 09:49] VITALS: BP 175/65; PULSE 98; RESP 18; TEMP 36.6; BMI 42.8
--- NOTE | 2020-05-24 10:22 | PCM.WC.PN ---
(1) Foot abscess, left Status: Acute Current Visit: Yes Code(s): L02.612 - Cutaneous abscess of left foot (2) Other acquired deformities of left foot Status: Acute Current Visit: Yes Code(s): M21.6X2 - Other acquired deformities of left foot (3) Ulcer of left foot with muscle involvement without evidence of necrosis Status: Acute Current Visit: Yes Code(s): L97.525 - Non-pressure chronic ulcer of other part of left foot with muscle involvement without evidence of necrosis (4) Ulcer of left foot with necrosis of muscle Status: Acute Current Visit: Yes Code(s): L97.523 - Non-pressure chronic ulcer of other part of left foot with necrosis of muscle (5) Chronic ulcer of left foot with fat layer exposed Status: Chronic Current Visit: Yes Code(s): L97.522 - Non-pressure chronic ulcer of other part of left foot with fat layer exposed (6) Delayed wound healing Status: Chronic Current Visit: Yes Code(s): T14.8XXD - Other injury of unspecified body region, subsequent encounter (7) Diabetes Status: Chronic Current Visit: No Qualifiers: Diabetes mellitus type: due to underlying condition Code(s): E11.9 - Type 2 diabetes mellitus without complications (8) Diabetic neuropathy Status: Chronic Current Visit: No Qualifiers: Code(s): E11.40 - Type 2 diabetes mellitus with diabetic neuropathy, unspecified (9) Morbid obesity due to excess calories Status: Chronic Current Visit: No Code(s): E66.01 - Morbid (severe) obesity due to excess calories (10) Osteomyelitis of great toe of left foot Status: Chronic Current Visit: No Code(s): M86.9 - Osteomyelitis, unspecified (11) 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 Status: Chronic Current Visit: No Code(s): E11.22 - Type 2 diabetes mellitus with diabetic chronic kidney disease; N18.2 - Chronic kidney disease, stage 2 (mild) Type of Wound Date of Service: 05/24/20 Chief Complaint: Diabetic left foot ulceration, Mancilla Grade 3, with infection History of Wound: This 65-year-old male with multiple comorbidities was seen today for left foot ulcer. His left foot ulcer onset was 12-07-2019. He is previously known to me and had a left transmetatarsal amputation performed previously. That has since been healed. He had a total contact cast applied last week and kept this clean, dry, and intact. His antibiotics were also changed to Bactrim. After about 2 days of taking this medication he noticed a rash and called the infectious disease office. He relates he was changed back to doxycycline however he is not sure that is the name of the medication. He relates he will be on this for an additional week. He denies diarrhea, fever, chill, nausea, vomiting. Now that he is stabilizing, he has had he can return to the hyperbarics for continued benefits. Progress of Wound: Improving in quality and with size reduction this past week. Is being seen to restart his HBO treatments for healing purposes along with regular weekly debridements. Wound is improving therefore the patient is able to reactivate his HBO treatments. - Physical Exam Vital Signs Temp Pulse Resp BP 97.8 F 98 18 175/65 H 05/24/20 09:49 05/24/20 09:49 05/24/20 09:49 05/24/20 09:49 General: Oriented x3, Cooperative, Well developed HEENT: Atraumatic, PERRLA Oral: Moist Mucosa Neck: Supple, No JVD Lungs: Clear to auscultation, Normal air movement Cardiovascular: Regular rate, Regular Rhythm Abdomen: Bowel Sounds Present, Soft, Non Tender, No Hepato-splenomegaly Extremities: No clubbing, No edema Skin: Ulcer/ Wound - Left plantar Emili 3 DFU Wound Measurements and Assessment WC - Nurse 1 - General Ulcer Measurement Start: 05/24/20 09:49 Freq: Status: Active Protocol: Activity Type Activity Date Activity User E-Sign Co-Sign Detail Recorded Client Recorded Date Recorded By Document 05/24/20 09:49 [facility] [id number] 05/24/20 09:59 [facility] 05/24/20 09:49 Wound Center Nurse 1 [Ulcer Assessment] #1 Left Plantar medial -Combined with other wound No -Current Size (cm) - Length 2.4 -Current Size (cm) - Width 2.1 -Current Size (cm) - Depth 0.5 -Total Square Cm 5.04 -Photo Taken No -Epithelialization Small 1-33% -Tunneling No -Undermining/Tunneling No -Circular Undermining No -Exudate Amt Small -Exudate Type Serosanguineous -Wound Margin Distinct, Outline Attached -Granulation Amt Large (67-100%) -Granulation Quality Pale,Red -Slough/Fibrin Yes -Necrosis Amt Small (1-33%) -Necrotic Tissue Type Adherent Slough -Texture (Maria M-wound Skin Appearance) Assessed,Callus ,Scarring -Moisture (Maria M-wound Skin Appearance Assessed,Dry/ ) Scaly -Color (Maria M-wound Skin Appearance) Assessed -Temperature (Maria M-wound Skin No Abnormality Appearance) (Pt Warm) -Tenderness on Palpation (Maria M-wound No Skin Appearance) -Ulcer Cleansing soapy water -Foul Odor after Cleansing No -Anesthetic Used 4% Lidocaine Solution Musculoskeletal: No Tenderness to Palpation of Joints or Extremities Lymphatic: No Cervical, Supraclavicular, or Inguinal Adenopathy Neurological: Cranial nerves II-XII grossly intact, Neuro grossly intact Psych/Mental Status: Normal Affect, Appropriate Debridement Note No debridement was completed today Assessment/Plan Active Problems (Last Reviewed 04/24/20 @ 15:[address] Juan Arteaga MD) Ulcer of left foot with muscle involvement without evidence of necrosis (Acute) Ulcer of left foot with necrosis of muscle (Acute) Chronic ulcer of left foot with fat layer exposed (Chronic) Delayed wound healing (Chronic) Other acquired deformities of left foot (Acute) Foot abscess, left (Acute) Assessment: Left plantar medial foot ulcer, Mancilla Grade 3 (recent status change from fat layer exposed to tendon layer exposure now that is devitalized). Morbid obesity. Diabetes type 2 with complications Plan: I I have evaluated and reviewed this case patient is to restart HBO treatments still to be used patient may started anytime and continue with debridement along with treatments
--- NOTE | 2020-05-24 14:34 | PN.PCM_ITS ---
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 Code(s): L97.523 - Non-pressure chronic ulcer of other part of left foot with necrosis of muscle (2) Type 2 diabetes mellitus with diabetic polyneuropathy Status: Chronic Qualifiers: Code(s): E11.42 - Type 2 diabetes mellitus with diabetic polyneuropathy (3) Osteomyelitis of left foot Status: Resolved Code(s): M86.9 - Osteomyelitis, unspecified (4) History of transmetatarsal amputation of left foot Status: Chronic Code(s): Z89.432 - Acquired absence of left foot (5) MRSA (methicillin resistant staph aureus) culture positive Status: Acute Code(s): Z22.322 - Carrier or suspected carrier of Methicillin resistant Staphylococcus aureus Type of Wound Date of Service: 05/24/20 Chief Complaint: Diabetic left foot ulceration, Mancilla Grade 3, with infection History of Wound: This 65-year-old male with multiple comorbidities was seen today for left foot ulcer. His left foot ulcer onset was 12-07-2019. He is previously known to me and had a left transmetatarsal amputation performed previously. That has since been healed. He had a total contact cast applied last week and kept this clean, dry, and intact. His antibiotics were also recently changed to linezolid. He is doing much better since his transition has occurred. He denies diarrhea, rash, fever, chill, nausea, vomiting. He also continues hyperbaric oxygen therapy. Progress of Wound: Improving - Physical Exam Vital Signs Temp Pulse Resp BP 97.8 F 98 18 175/65 H 05/24/20 09:49 05/24/20 09:49 05/24/20 09:49 05/24/20 09:49 General: Alert, Oriented x3, Cooperative, No apparent distress Extremities: No cyanosis, Capillary Refill Less than 3 Seconds, No Calf Tenderness, Diminished Peripheral Pulses, Edema Skin: Ulcer/ Wound - No purulence, erythema, streaking, odor, infection. There is a small central area of exposed flexor tendon that has lack of necrosis or probe to bone. His adjacent skin is hairless and atrophic. There is reduced callus formation also noted peripherally Wound Measurements and Assessment WC - Nurse 1 - General Ulcer Measurement Start: 05/24/20 09:49 Freq: Status: Active Protocol: Activity Type Activity Date Activity User E-Sign Co-Sign Detail Recorded Client Recorded Date Recorded By Document 05/24/20 09:49 [facility] [id number] 05/24/20 09:59 [facility] 05/24/20 09:49 Wound Center Nurse 1 [Ulcer Assessment] #1 Left Plantar medial -Combined with other wound No -Current Size (cm) - Length 2.4 -Current Size (cm) - Width 2.1 -Current Size (cm) - Depth 0.5 -Total Square Cm 5.04 -Photo Taken No -Epithelialization Small 1-33% -Tunneling No -Undermining/Tunneling No -Circular Undermining No -Exudate Amt Small -Exudate Type Serosanguineous -Wound Margin Distinct, Outline Attached -Granulation Amt Large (67-100%) -Granulation Quality Pale,Red -Slough/Fibrin Yes -Necrosis Amt Small (1-33%) -Necrotic Tissue Type Adherent Slough -Texture (Maria M-wound Skin Appearance) Assessed,Callus ,Scarring -Moisture (Maria M-wound Skin Appearance Assessed,Dry/ ) Scaly -Color (Maria M-wound Skin Appearance) Assessed -Temperature (Maria M-wound Skin No Abnormality Appearance) (Pt Warm) -Tenderness on Palpation (Maria M-wound No Skin Appearance) -Ulcer Cleansing soapy water -Foul Odor after Cleansing No -Anesthetic Used 4% Lidocaine Solution WC - Nurse 2 - General Ulcer CM Notes Start: 05/24/20 09:49 Freq: Status: Active Protocol: Activity Type Activity Date Activity User E-Sign Co-Sign Detail Recorded Client Recorded Date Recorded By Document 05/24/20 10:23 [id number] 05/24/20 10:30 05/24/20 10:23 Wound Center Nurse 2 [Procedure/Treatment] -Time 10:23 -Correct Patient Yes -Correct Side, Site, Position Yes -Correct Procedure Yes -Procedure Performed Yes -Type of Procedure Debridement -Clinical Debridement Subcutaneous -Tissue Removed Subcutaneous -Post Debridement (cm) - Length 2.2 -Post Debridement (cm) - Width 2.2 -Post Debridement (cm) - Depth 0.3 -Total Square (Post) (cm) 4.84 -Area of Debridement (cm) - Length 2.2 -Area of Debridement (cm) - Width 2.2 -Total Square (Area) (cm) 4.84 -Tunneling No -Undermining/Tunneling No -Circular Undermining No -Wound/Ulcer Outcome Not Healed -Ulcer Cleansing Rinsed/ Irrigated with Saline -Foul Odor after Cleansing No -Bioengineered Tissue Yes -Type of Bioengineered Tissue Epifix -Expiration Date 01/20/25 -Product Lot Number [id number] -Percent Used 100 -Saline Lot Number [id number] -Bleeding Controlled with Pressure -Offloading Yes -Type of Offloading Total Contact Cast (TCC) - Left ($) -Treatment Response Procedure Tolerated Well -Debridement - Subq, 1st 20sq cm No -Apply Skin Sub - 1st 25 sq cm - Feet 1 -Epifix (per sq cm) 4 [See Physician Procedure note for Specifics] Pain Scale: 0-10 Numeric [Pain] -Is Patient Pain Free? Yes - Nurse 3 - General Ulcer D/C NN Start: 05/24/20 09:49 Freq: Status: Active Protocol: Activity Type Activity Date Activity User E-Sign Co-Sign Detail Recorded Client Recorded Date Recorded By Document 05/24/20 10:47 RB [id number] 05/24/20 10:48 RB 05/24/20 10:47 Wound Care Nurse 3 [Wound Dressing] #1 Left Plantar medial -Other Dressing primary layer TCC [Compression Applied] Left -Other primary layer TCC 3 inch [Post Procedure Tolerated] -Treatment Response Procedure Tolerated Well Pain Scale: 0-10 Numeric [Pain] -Is Patient Pain Free? Yes Teaching: Wound Center [Wound Center Education] (Items with an * have Printed Materials Available- Please identify what is given to patient under the Teaching materials given to patient and caregiver Section. Foot Care -Person Taught Patient -Teaching Method Discussion -Response to teaching Verbalize understanding - Visit Discharge [Visit Discharge Information] -Discharge Condition Stable -Ambulatory Status Ambulatory -Transportation Private Auto -Medication Reconcilliation completed No & provided to patient/care provider -Clinical Summary of Care Provided Yes Musculoskeletal: No Tenderness to Palpation of Joints or Extremities, Muscle Wasting Neurological: - - Lack of normal epicritic sensation light touch is consistent w ith neuropathy status Psych/Mental Status: Normal Affect, Appropriate Debridement Note Post-Debridement Measurements/Treatment - Nurse 2 - General Ulcer CM Notes Start: 05/24/20 09:49 Freq: Status: Active Protocol: Activity Type Activity Date Activity User E-Sign Co-Sign Detail Recorded Client Recorded Date Recorded By Document 05/24/20 10:23 [email or web address] [id number] 05/24/20 10:30 CASSY 05/24/20 10:23 Wound Center Nurse 2 #1 Left Plantar medial -Time 10:23 -Correct Patient Yes -Correct Side, Site, Position Yes -Correct Procedure Yes -Procedure Performed Yes -Type of Procedure Debridement -Clinical Debridement Subcutaneous -Tissue Removed Subcutaneous -Post Debridement (cm) - Length 2.2 -Post Debridement (cm) - Width 2.2 -Post Debridement (cm) - Depth 0.3 -Total Square (Post) (cm) 4.84 -Area of Debridement (cm) - Length 2.2 -Area of Debridement (cm) - Width 2.2 -Total Square (Area) (cm) 4.84 -Tunneling No -Undermining/Tunneling No -Circular Undermining No -Wound/Ulcer Outcome Not Healed -Ulcer Cleansing Rinsed/ Irrigated with Saline -Foul Odor after Cleansing No -Bioengineered Tissue Yes -Type of Bioengineered Tissue Epifix -Expiration Date 01/20/25 -Product Lot Number [id number] -Percent Used 100 -Saline Lot Number [id number] -Bleeding Controlled with Pressure -Offloading Yes -Type of Offloading Total Contact Cast (TCC) - Left ($) -Treatment Response Procedure Tolerated Well -Debridement - Subq, 1st 20sq cm No -Apply Skin Sub - 1st 25 sq cm - Feet 1 -Epifix (per sq cm) 4 Pain Scale: 0-10 Numeric Is Patient Pain Free? Yes - Nurse 3 - General Ulcer D/C NN Start: 05/24/20 09:49 Freq: Status: Active Protocol: Activity Type Activity Date Activity User E-Sign Co-Sign Detail Recorded Client Recorded Date Recorded By Document 05/24/20 10:47 LEV [id number] 05/24/20 10:48 LEV 05/24/20 10:47 Wound Care Nurse 3 #1 Left Plantar medial -Other Dressing primary layer TCC Left -Other primary layer TCC 3 inch Treatment Response Procedure Tolerated Well Pain Scale: 0-10 Numeric Is Patient Pain Free? Yes Teaching: Wound Center Foot Care -Person Taught Patient -Teaching Method Discussion -Response to teaching Verbalize understanding WC - Visit Discharge Discharge Condition Stable Ambulatory Status Ambulatory Transportation Private Auto Medication Reconcilliation completed & No provided to patient/care provider Clinical Summary of Care Provided Yes Wound debrided: plantar foot Laterality: Left Wound Grade/Stage: grade 3 Type of Debridement: Excisional debridement Anesthesia Used: 5% Lidocaine Gel Depth: in the subcutaneous layer Percentage of wound debrided: 100 Instrument Used: #15 blade Tissue Removed: fibrous, devitalized subcutaneous, biofilm, slough Severity: Fat Layer Exposed Amount of bleeding with debridement: Mild Bleeding Controlled with: Pressure Patient tolerated procedure well Assessment/Plan Assessment: Left plantar medial foot ulcer, Mancilla Grade 3 (recent status change from fat layer exposed to tendon layer exposure now that is devitalized). Morbid obesity. Diabetes type 2 with complications. 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 Subcutaneous excisional debridement was performed as noted in the clinical panel to the left foot. The peripheral callus was also debrided. His ulcer is notably smaller in size today the quality has significantly improved. Some tendon exposed however it was not debrided today. There is not any remaining necrotic tissue noted. I would like to consider advanced wound healing product application, epi-fix, and verbal consent was obtained today. The benefits, indications, anticipated application, healing time management were reviewed. This was applied according standard protocol and further secured with a wound veil and Steri-Strips. He tolerated this well. He did well with a total contact cast last week and there is been significant reduction in inflammation and callus formation. I recommend application today. Verbal consent was obtained and this was applied according to standard protocol in a neutral position well-padded manner. He tolerated this well. He is advised to keep this clean, dry, and intact until follow-up next week. I advised him to obtain a shower bag so we can date otherwise. Prior to the application of this advanced product and cast antimicrobial Hibiclens soap and water were used to wash limb. I discussed other offloading techniques such as using a walker or a knee roller. His noninvasive vascular studies were reviewed from which were normal and intervention was previously not recommended. I advised him to follow-up with all of Dr. Bonilla's recommendations to optimize his healing process. He has recently been seen and intervention is planned for arterial optimization. An updated bilateral duplex was also recommended to help with planning. He relates he did not schedule his follow-up session with the ordering physician, Dr. Bonilla yet and he was encouraged to do so. He had an updated left foot x-ray which did not demonstrate any new progressive osseous destruction, soft tissue emphysema, fracture, dislocation, or foreign body. His culture demonstrated MRSA growth and he did have elevated white blood cell count of 11.2. This patient was trans-positioned into Selam nasal lid use due to his doxycycline resistance and rash secondary to Bactrim use. I recommend that he sees infectious disease because he is very high risk and input is greatly appreciated. I also previously recommended an MRI to confirm the extent of infection. This was reviewed during his other recent visit without radiographic evidence of acute osteomyelitis, abscess, or other acute findings. He had a history of chronic refractory osteomyelitis that is documented from earlier this year. To continue to work on decreasing glucose levels. He has a history of hyperglycemia. To c memo to follow-up with nutritional services. To continue to follow-up as advised. He is currently making adjustments with his eating habits. He also follows up with inside parts sales, Dr. Arteaga who is working with him to reduce his hemoglobin A1c with medication and behavioral changes. His other labs were reviewed including CBC and CMP. WBC of 12.4 is noted. ESR was updated at 54 and C-reactive protein was 14.3. Smoking cessation was discussed in detail and he was advised on the healing impairment associated with this. To continue with his smoking cessation program. I also recommend discontinuation of nicotine products for this also contributes to small vessel contraction. He has demonstrated appropriate stabilization from an ulcer standpoint with recent quality and size improvement. His infection also appears to be stabilizing. I recommend resuming hyperbaric oxygen therapy. This is medically necessary. Is noted his nutrition, vascular, and medical status is optimized. I advised him of the benefits. Additional insurance authorization will be pursued at this time. The patient is amendable and states he is ready to resume. I answered all of his questions today. To return to clinic in 1 week or call sooner if questions, concerns, or progressive worsening.
--- NOTE | 2020-05-26 10:57 | WC ---
Called and left a patient a message on his voicemail about his HBO start time for 05/30/2020 at 9-9:15 am. Advised that he eat breakfast prior to his treatment and to call in to confirm that he received this message.
[2020-05-30 11:55] LABS: Bedside Glucose 146 mg/dL (70-110)
[2020-05-30 12:22] VITALS: BP 127/73; BP 134/72; PULSE 101; PULSE 77; RESP 16; RESP 18; TEMP 35.7; TEMP 36.6
--- NOTE | 2020-05-30 12:46 | PCM.HBO.PN ---
History of Present Illness Date of Service: 05/30/20 Presenting Chief Complaint: Diabetic left foot ulceration, Mancilla Grade 3, with infection GEN SIM is a 65 year old currently undergoing hyperbaric oxygen therapy for diabetic left foot infection, Mancilla grade 3 Progress: Today's session represents the 20th/session of hyperbaric oxygen therapy, of an expected 30 such treatments. Tolerance of hyperbaric oxygen therapy: Hyperbaric oxygen therapy was administered as per the facility's protocol. Hyperbaric oxygen therapy was administered at 2 silas for 90 minutes with two 5-minute air breaks. Patient tolerated hyperbaric oxygen therapy well, without complaints or complications. Upon emergence from the hyperbaric chamber, the patient's vital signs remained stable. Pre-and post treatment blood sugars are documented elsewhere. The patient was discharged in good condition. Past Medical History Chronic Problems (Last Reviewed 04/24/20 @ 15:[address] 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) Tobacco abuse counseling (Chronic) Mixed hyperlipidemia (Chronic) Benign essential hypertension (Chronic) 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) Diabetes (Chronic) Type 2 diabetes mellitus (Chronic) Obstructive sleep apnea (Chronic) Uncontrolled diabetes mellitus (Chronic) Diabetic infection of left foot (Chronic) Osteomyelitis of great toe of left foot (Chronic) Morbid obesity due to excess calories (Chronic) Tobacco dependence due to cigarettes (Chronic) Diabetic neuropathy (Chronic) Hypertension (Chronic) 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) Allergies/Adverse Reactions: Allergies Sulfa (Sulfonamide Antibiotics) Allergy (Verified 05/24/20 10:13) Rash Home Medications: Ambulatory Orders Medication Instructions Recorded Calcium Carbonate [Calcium] 500 mg PO DAILY 06/23/17 Multivitamin [Multiple Vitamins] 1 ea PO DAILY 06/23/17 aspirin 81 mg tablet,delayed 81 mg PO DAILY 08/12/19 release atorvastatin 40 mg tablet 40 mg PO DAILY 10/18/19 bupropion HCl 150 mg 24 hr tablet, 150 mg PO BID tab 10/18/19 extended release lisinopril 10 mg tablet 10 mg PO DAILY 10/18/19 tamsulosin 0.4 mg capsule 0.4 mg PO DAILY@1730 cap 10/18/19 blood sugar diagnostic See Rx Instructions .ROUTE 10/28/19 .MEDSUPPLY #100 ea lancets 33 gauge See Rx Instructions .ROUTE 10/28/19 .MEDSUPPLY #100 ea gabapentin 300 mg capsule 600 mg PO TIDCM cap 04/24/20 Smz/Tmp Ds [Bactrim Ds] 1 tab PO BID #20 tab 05/10/20 insulin regular hum U-500 conc 145 unit SC TID #27 ml 05/12/20 Maternal Family History: Family History (Last Reviewed 04/24/20 @ 15:[address] Juan Arteaga MD) Father Myocardial infarction Heart disease Mother Kidney disease Diabetes Sister Asthma Breast cancer Hypertension Brother Alcoholism Melanoma Family History: Diabetes, Renal Disease - on dialysis Paternal Family History: Family History (Last Reviewed 04/24/20 @ 15:[address] Juan Arteaga MD) Father Myocardial infarction Heart disease Mother Kidney disease Diabetes Sister Asthma Breast cancer Hypertension Brother Alcoholism Melanoma Family History: Heart Disease Sibling Family History: Family History (Last Reviewed 04/24/20 @ 15:[address] Juan Arteaga MD) Father Myocardial infarction Heart disease Mother Kidney disease Diabetes Sister Asthma Breast cancer Hypertension Brother Alcoholism Melanoma Family History: Cancer - breast cancer in his sister Smoking Status: Heavy Smoker (>10/day) Physical Exam Vital Signs Temp Pulse Resp BP 97.8 F 77 16 134/72 H 05/30/20 12:22 05/30/20 12:22 05/30/20 12:22 05/30/20 12:22 General: Alert, Oriented x3, Cooperative, No apparent distress, Well developed, Well nourished HEENT: Atraumatic, PERRLA, EOMI, Normocephalic Lungs: Normal air movement Psych/Mental Status: Normal Affect, Appropriate, Alert and oriented to time, place, person, mood and affect Assessment/Plan The patient appears to be tolerating hyperbaric oxygen therapy well, which will be continued as per the patient's medical plan. Treatment Course Number Treatment Course Number 1 Treatment # 20 Chamber # 2 Chamber Type Monoplace HBO Diagnosis/Indication Diagnosis/Indication(s) for Left Diabetic Foot Ulcer,Standard/Conservative Hyperbaric Therapy Classification - Mancilla Grade 2 Grading (Diabetic Ulcer) [] Classification - Mancilla Grade 2 Grading (Diabetic Ulcer) [] Classification - Mancilla Grade 3 Grading (Diabetic Ulcer) Diabetes - Detail Diabetes Diabetes Type II Left Extremity Ulcer, Other part of Foot Treatment Plan MARTITA (Atmospheric Absolute) 2 Number of Minutes 90 Number of Air Breaks 2
[2020-05-31 08:11] LABS: Bedside Glucose 150 mg/dL (70-110)
[2020-05-31 10:35] LABS: Bedside Glucose 143 mg/dL (70-110)
[2020-05-31 10:57] VITALS: BP 154/70; PULSE 81; RESP 18; TEMP 36.4; BMI 42.8
--- NOTE | 2020-05-31 11:03 | PCM.HBO.PN ---
History of Present Illness Date of Service: 05/31/20 Presenting Chief Complaint: Diabetic left foot ulceration, Mancilla Grade 3, with infection GEN SIM is a 65 year old currently undergoing hyperbaric oxygen therapy for diabetic left foot infection, Mancilla grade 3 Progress: Today's session represents the 21st/session of hyperbaric oxygen therapy, of an expected 30 such treatments. Tolerance of hyperbaric oxygen therapy: Hyperbaric oxygen therapy was administered as per the facility's protocol. Hyperbaric oxygen therapy was administered at 2 silas for 90 minutes with two 5-minute air breaks. Patient tolerated hyperbaric oxygen therapy well, without complaints or complications. Upon emergence from the hyperbaric chamber, the patient's vital signs remained stable. Pre-and post treatment blood sugars are documented elsewhere. The patient was discharged in good condition. Past Medical History Chronic Problems (Last Reviewed 04/24/20 @ 15:[address] 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) Tobacco abuse counseling (Chronic) Mixed hyperlipidemia (Chronic) Benign essential hypertension (Chronic) 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) Diabetes (Chronic) Type 2 diabetes mellitus (Chronic) Obstructive sleep apnea (Chronic) Uncontrolled diabetes mellitus (Chronic) Diabetic infection of left foot (Chronic) Osteomyelitis of great toe of left foot (Chronic) Morbid obesity due to excess calories (Chronic) Tobacco dependence due to cigarettes (Chronic) Diabetic neuropathy (Chronic) Hypertension (Chronic) 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) Allergies/Adverse Reactions: Allergies Sulfa (Sulfonamide Antibiotics) Allergy (Verified 05/24/20 10:13) Rash Home Medications: Ambulatory Orders Medication Instructions Recorded Calcium Carbonate [Calcium] 500 mg PO DAILY 06/23/17 Multivitamin [Multiple Vitamins] 1 ea PO DAILY 06/23/17 aspirin 81 mg tablet,delayed 81 mg PO DAILY 08/12/19 release atorvastatin 40 mg tablet 40 mg PO DAILY 10/18/19 bupropion HCl 150 mg 24 hr tablet, 150 mg PO BID tab 10/18/19 extended release lisinopril 10 mg tablet 10 mg PO DAILY 10/18/19 tamsulosin 0.4 mg capsule 0.4 mg PO DAILY@1730 cap 10/18/19 blood sugar diagnostic See Rx Instructions .ROUTE 10/28/19 .MEDSUPPLY #100 ea lancets 33 gauge See Rx Instructions .ROUTE 10/28/19 .MEDSUPPLY #100 ea gabapentin 300 mg capsule 600 mg PO TIDCM cap 04/24/20 Smz/Tmp Ds [Bactrim Ds] 1 tab PO BID #20 tab 05/10/20 insulin regular hum U-500 conc 145 unit SC TID #27 ml 05/12/20 Maternal Family History: Family History (Last Reviewed 04/24/20 @ 15:[address] Juan Arteaga MD) Father Myocardial infarction Heart disease Mother Kidney disease Diabetes Sister Asthma Breast cancer Hypertension Brother Alcoholism Melanoma Family History: Diabetes, Renal Disease - on dialysis Paternal Family History: Family History (Last Reviewed 04/24/20 @ 15:[address] Juan Arteaga MD) Father Myocardial infarction Heart disease Mother Kidney disease Diabetes Sister Asthma Breast cancer Hypertension Brother Alcoholism Melanoma Family History: Heart Disease Sibling Family History: Family History (Last Reviewed 04/24/20 @ 15:[address] Juan Arteaga MD) Father Myocardial infarction Heart disease Mother Kidney disease Diabetes Sister Asthma Breast cancer Hypertension Brother Alcoholism Melanoma Family History: Cancer - breast cancer in his sister Smoking Status: Heavy Smoker (>10/day) Physical Exam Vital Signs Temp Pulse Resp BP 97.8 F 77 16 134/72 H 05/30/20 12:22 05/30/20 12:22 05/30/20 12:22 05/30/20 12:22 Assessment/Plan The patient appears to be tolerating hyperbaric oxygen therapy well, which will be continued as per the patient's medical plan. Treatment Course Number Treatment Course Number 1 Treatment # 20 Chamber # 2 Chamber Type Monoplace HBO Diagnosis/Indication Diagnosis/Indication(s) for Left Diabetic Foot Ulcer,Standard/Conservative Hyperbaric Therapy Classification - Mancilla Grade 2 Grading (Diabetic Ulcer) [#2 right 5th metatarsal] Classification - Mancilla Grade 2 Grading (Diabetic Ulcer) [#1 Left Plantar medial] Classification - Mancilla Grade 3 Grading (Diabetic Ulcer) Diabetes - Detail Diabetes Diabetes Type II Left Extremity Ulcer, Other part of Foot Treatment Plan MARTITA (Atmospheric Absolute) 2 Number of Minutes 90 Number of Air Breaks 2
[2020-05-31 11:21] VITALS: BP 135/66; BP 145/74; PULSE 70; PULSE 95; RESP 18; TEMP 36.3; TEMP 36.8
--- NOTE | 2020-05-31 13:05 | PCM.WC.PN ---
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 Current Visit: Yes Code(s): L97.523 - Non-pressure chronic ulcer of other part of left foot with necrosis of muscle (2) Type 2 diabetes mellitus with diabetic polyneuropathy Status: Chronic Current Visit: Yes Qualifiers: Code(s): E11.42 - Type 2 diabetes mellitus with diabetic polyneuropathy (3) Osteomyelitis of left foot Status: Resolved Current Visit: Yes Code(s): M86.9 - Osteomyelitis, unspecified (4) History of transmetatarsal amputation of left foot Status: Chronic Current Visit: Yes Code(s): Z89.432 - Acquired absence of left foot (5) MRSA (methicillin resistant staph aureus) culture positive Status: Resolved Current Visit: Yes Code(s): Z22.322 - Carrier or suspected carrier of Methicillin resistant Staphylococcus aureus Type of Wound Date of Service: 05/31/20 Chief Complaint: Diabetic left foot ulceration, Mancilla Grade 3, with infection History of Wound: This 65-year-old male with multiple comorbidities was seen today for left foot ulcer. His left foot ulcer onset was 12-07-2019. He is previously known to me and had a left transmetatarsal amputation performed previously. That has since been healed. He had a total contact cast applied last week and kept this clean, dry, and intact. His antibiotics were also recently changed to linezolid. He completed this course. He is doing much better since his transition has occurred. He denies diarrhea, rash, fever, chill, nausea, vomiting. He also continues hyperbaric oxygen therapy. He relates he has 9 sessions left. Progress of Wound: Improving - Physical Exam Vital Signs Temp Pulse Resp BP 97.4 F L 95 18 135/66 H 05/31/20 11:21 05/31/20 11:21 05/31/20 11:21 05/31/20 11:21 General: Alert, Oriented x3, Cooperative, No apparent distress HEENT: Atraumatic Extremities: No cyanosis, Capillary Refill Less than 3 Seconds, No Calf Tenderness, Diminished Peripheral Pulses, Edema - Mild, - - Transmetatarsal amputation left Skin: Ulcer/ Wound - No purulence, erythema, streaking, odor, infection. The tendon is no longer visualized and there is reduction in ulcer depth. There is also significant reduction in peripheral callus Wound Measurements and Assessment WC - Nurse 1 - General Ulcer Measurement Start: 05/24/20 09:49 Freq: Status: Active Protocol: Activity Type Activity Date Activity User E-Sign Co-Sign Detail Recorded Client Recorded Date Recorded By Document 05/31/20 10:57 OR [id number] 05/31/20 11:10 OR 05/31/20 10:57 Wound Center Nurse 1 [Ulcer Assessment] #1 Left Plantar medial -Current Size (cm) - Length 2.2 -Current Size (cm) - Width 2.0 -Current Size (cm) - Depth 0.2 -Total Square Cm 4.40 -Exudate Amt Small -Exudate Type Serosanguineous -Wound Margin Thickened & Rolled Under -Granulation Amt Medium (34-66%) -Granulation Quality Pale,[place] -Necrosis Amt Medium (34-66%) -Necrotic Tissue Type Adherent Slough -Texture (Maria M-wound Skin Appearance) Assessed,Callus -Moisture (Maria M-wound Skin Appearance Assessed ) -Color (Maria M-wound Skin Appearance) Assessed -Temperature (Maria M-wound Skin No Abnormality Appearance) (Pt Warm) -Tenderness on Palpation (Maria M-wound No Skin Appearance) -Ulcer Cleansing Rinsed/ Irrigated with Saline -Foul Odor after Cleansing Yes -Anesthetic Used 4% Lidocaine Solution [Edema Assessment] -Lower Limb Edema Present Yes -Left Calf (cm) 47 -Left Ankle (cm) 27 - Nurse 2 - General Ulcer CM Notes Start: 05/24/20 09:49 Freq: Status: Active Protocol: Activity Type Activity Date Activity User E-Sign Co-Sign Detail Recorded Client Recorded Date Recorded By Document 05/31/20 11:30 [id number] 05/31/20 11:33 05/31/20 11:30 Wound Center Nurse 2 [Procedure/Treatment] #1 Left Plantar medial -Time 11:31 -Correct Patient Yes -Correct Side, Site, Position Yes -Correct Procedure Yes -Procedure Performed Yes -Type of Procedure Debridement -Clinical Debridement Subcutaneous -Tissue Removed Subcutaneous -Post Debridement (cm) - Length 2.0 -Post Debridement (cm) - Width 2.0 -Post Debridement (cm) - Depth 0.6 -Total Square (Post) (cm) 4.00 -Area of Debridement (cm) - Length 2.0 -Area of Debridement (cm) - Width 2.0 -Total Square (Area) (cm) 4.00 -Tunneling No -Undermining/Tunneling No -Circular Undermining No -Wound/Ulcer Outcome Not Healed -Ulcer Cleansing Rinsed/ Irrigated with Saline -Foul Odor after Cleansing No -Bioengineered Tissue Yes -Type of Bioengineered Tissue Epifix 18mm Disc -Expiration Date 01/20/25 -Product Lot Number [id number] -Percent Used 100 -Saline Lot Number [id number] -Bleeding Controlled with Pressure -Offloading Yes -Type of Offloading Total Contact Cast (TCC) - Left ($) -Debridement - Subq, 1st 20sq cm No -Apply Skin Sub - 1st 25 sq cm - Feet 1 -Epifix (per sq cm) 4 -Epifix 18mm Disc 0 Query Text:18mm = 3 [See Physician Procedure note for Specifics] Pain Scale: 0-10 Numeric [Pain] -Is Patient Pain Free? Yes - Nurse 3 - General Ulcer D/C NN Start: 05/24/20 09:49 Freq: Status: Active Protocol: Activity Type Activity Date Activity User E-Sign Co-Sign Detail Recorded Client Recorded Date Recorded By Document 05/30/20 12:22 [id number] 05/30/20 12:25 Document 05/31/20 11:52 [id number] 05/31/20 11:53 05/30/20 05/31/20 12:22 11:52 Wound Care Nurse 3 [Wound Dressing] #1 Left Plantar medial -Other Dressing primary layer TCC applied [Post Procedure Tolerated] -Treatment Response Procedure Tolerated Well Pain Scale: 0-10 Numeric [Pain] -Is Patient Pain Free? Yes Yes - Visit Discharge [Visit Discharge Information] -Discharge Condition Stable Stable -Ambulatory Status Ambulatory,Cane Cane -Transportation Private Auto Private Auto -Medication Reconcilliation completed Yes No & provided to patient/care provider -Clinical Summary of Care Provided Yes Yes Musculoskeletal: Muscle Wasting, - - Compartment soft to palpate. No bogginess or fluctuance on palpation Neurological: - - Lack of normal epicritic sensation light touch is consistent with neuropathy status Psych/Mental Status: Normal Affect, Appropriate Debridement Note Post-Debridement Measurements/Treatment - Nurse 2 - General Ulcer CM Notes Start: 05/24/20 09:49 Freq: Status: Active Protocol: Activity Type Activity Date Activity User E-Sign Co-Sign Detail Recorded Client Recorded Date Recorded By Document 05/24/20 10:23 [id number] 05/24/20 10:30 Document 05/31/20 11:30 [id number] 05/31/20 11:33 05/24/20 05/31/20 10:23 11:30 Wound Center Nurse 2 #1 Left Plantar medial -Time 10:23 11:31 -Correct Patient Yes Yes -Correct Side, Site, Position Yes Yes -Correct Procedure Yes Yes -Procedure Performed Yes Yes -Type of Procedure Debridement Debridement -Clinical Debridement Subcutaneous Subcutaneous -Tissue Removed Subcutaneous Subcutaneous -Post Debridement (cm) - Length 2.2 2.0 -Post Debridement (cm) - Width 2.2 2.0 -Post Debridement (cm) - Depth 0.3 0.6 -Total Square (Post) (cm) 4.84 4.00 -Area of Debridement (cm) - Length 2.2 2.0 -Area of Debridement (cm) - Width 2.2 2.0 -Total Square (Area) (cm) 4.84 4.00 -Tunneling No No -Undermining/Tunneling No No -Circular Undermining No No -Wound/Ulcer Outcome Not Healed Not Healed -Ulcer Cleansing Rinsed/ Rinsed/ Irrigated with Irrigated with Saline Saline -Foul Odor after Cleansing No No -Bioengineered Tissue Yes Yes -Type of Bioengineered Tissue Epifix Epifix 18mm Disc -Expiration Date 01/20/25 01/20/25 -Product Lot Number [id number] -Percent Used 100 100 -Saline Lot Number [id number] -Bleeding Controlled with Pressure Pressure -Offloading Yes Yes -Type of Offloading Total Contact Total Contact Cast (TCC) - Cast (TCC) - Left ($) Left ($) -Treatment Response Procedure Tolerated Well -Debridement - Subq, 1st 20sq cm No No -Apply Skin Sub - 1st 25 sq cm - Feet 1 1 -Epifix (per sq cm) 4 4 -Epifix 18mm Disc 0 Query Text:18mm = 3 Pain Scale: 0-10 Numeric Is Patient Pain Free? Yes Yes - Nurse 3 - General Ulcer D/C NN Start: 05/24/20 09:49 Freq: Status: Active Protocol: Activity Type Activity Date Activity User E-Sign Co-Sign Detail Recorded Client Recorded Date Recorded By Document 05/24/20 10:47 RB [id number] 05/24/20 10:48 RB Document 05/30/20 12:22 [id number] [id number] 05/30/20 12:25 JF Document 05/31/20 11:52 RB [id number] 05/31/20 11:53 RB 05/24/20 05/30/20 05/31/20 10:47 12:22 11:52 Wound Care Nurse 3 #1 Left Plantar medial -Other Dressing primary layer primary layer TCC TCC applied Left -Other primary layer TCC 3 inch Treatment Response Procedure Procedure Tolerated Well Tolerated Well Pain Scale: 0-10 Numeric Is Patient Pain Free? Yes Yes Yes Teaching: Wound Center Foot Care -Person Taught Patient -Teaching Method Discussion -Response to teaching Verbalize understanding WC - Visit Discharge Discharge Condition Stable Stable Stable Ambulatory Status Ambulatory Ambulatory,Cane Cane Transportation Private Auto Private Auto Private Auto Medication Reconcilliation completed & No Yes No provided to patient/care provider Clinical Summary of Care Provided Yes Yes Yes Wound debrided: plantar foot Laterality: Left Wound Grade/Stage: grade 3 Type of Debridement: Excisional debridement Anesthesia Used: 5% Lidocaine Gel Percentage of wound debrided: 100 Instrument Used: #15 blade Tissue Removed: fibrous, devitalized subcutaneous, biofilm, slough Severity: Fat Layer Exposed Amount of bleeding with debridement: Mild Bleeding Controlled with: Pressure Patient tolerated procedure well Assessment/Plan Active Problems (Last Reviewed 04/24/20 @ 15:[address] 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 Morbid obesity. Diabetes type 2 with complications. 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 Subcutaneous excisional debridement was performed as noted in the clinical panel to the left foot. The peripheral callus was also debrided which is decreased. His ulcer is notably smaller in size today the quality has significantly improved. There is no longer any tendon exposed today. I would like to consider advanced wound healing product application, epi-fix, and verbal consent was obtained today. The benefits, indications, anticipated application, healing time management were reviewed. This was applied according standard protocol and further secured with a wound veil and Steri-Strips. He tolerated this well. He did well with a total contact cast last week and there is been significant reduction in inflammation and callus formation. I recommend application today. Verbal consent was obtained and this was applied according to standard protocol in a neutral position well-padded manner. He tolerated this well. He is advised to keep this clean, dry, and intact until follow-up next week. I discussed other offloading techniques such as using a walker or a knee roller. His noninvasive vascular studies were reviewed from which were normal and intervention was previously not recommended. I advised him to follow-up with all of Dr. Bonilla's recommendations to optimize his healing process. He has for help scheduling this because he has not been able to do this. He has recently been seen and intervention is planned for arterial optimization. An updated bilateral duplex was also recommended to help with planning. He had an updated left foot x-ray which did not demonstrate any new progressive osseous destruction, soft tissue emphysema, fracture, dislocation, or foreign body. His culture demonstrated MRSA growth and he did have elevated white blood cell count of 11.2. He was started on antibiotics and the type of antibiotics was changed a couple times due to reported side effects and resistance. He completed a course of Linezolid. I recommend that he sees infectious disease because he is very high risk and input is greatly appreciated. I also previously recommended an MRI to confirm the extent of infection. This was reviewed during his other recent visit without radiographic evidence of acute osteomyelitis, abscess, or other acute findings. He had a history of chronic refractory osteomyelitis that is documented from earlier this year. To continue to work on decreasing glucose levels. He has a history of hyperglycemia. To continue to follow-up with nutritional services. To continue to follow-up as advised. He is currently making adjustments with his eating habits. He also follows up with veterinary assistant technician, Dr. Arteaga who is working with him to reduce his hemoglobin A1c with medication and behavioral changes. His other labs were reviewed including CBC and CMP. WBC of 12.4 is noted. ESR was updated at 54 and C-reactive protein was 14.3. Smoking cessation was discussed in detail and he was advised on the healing impairment associated with this. To continue with his smoking cessation program. I also recommend discontinuation of nicotine products for this also contributes to small vessel contraction. He has demonstrated appropriate stabilization from an ulcer standpoint with recent quality and size improvement. His infection also appears to be stabilizing. I recommend the continuation of hyperbaric oxygen therapy. This is medically necessary and he is responding well and making appropriate progress. Additional sessions will be requested. Is noted his nutrition, vascular, and medical status is optimized. I advised him of the benefits. Additional insurance authorization will be pursued at this time. The patient is amendable and states he is ready to resume. I answered all of his questions today. To return to clinic in 1 week or call sooner if questions, concerns, or progressive worsening.
[2020-06-01 08:15] LABS: Bedside Glucose 199 mg/dL (70-110)
[2020-06-01 10:41] LABS: Bedside Glucose 148 mg/dL (70-110)
[2020-06-01 10:41] LABS: Bedside Glucose 133 mg/dL (70-110)
[2020-06-01 10:41] LABS: Bedside Glucose 114 mg/dL (70-110)
[2020-06-01 10:41] LABS: Bedside Glucose 165 mg/dL (70-110)
[2020-06-01 10:45] VITALS: BP 136/84; BP 153/66; PULSE 73; PULSE 86; RESP 18; TEMP 36.6; TEMP 36.8
--- NOTE | 2020-06-01 15:34 | PCM.HBO.PN ---
History of Present Illness Date of Service: 06/01/20 Presenting Chief Complaint: Diabetic left foot ulceration, Mancilla Grade 3, with infection GEN SIM is a 65 year old currently undergoing hyperbaric oxygen therapy for diabetic left foot infection, Mancilla grade 3. Progress: Today's session represents the 22nd session of hyperbaric oxygen therapy, of an expected 30 such treatments. Tolerance of hyperbaric oxygen therapy: Hyperbaric oxygen therapy was administered as per the facility's protocol. Hyperbaric oxygen therapy was administered at 2 silas for 90 minutes with two 5-minute air breaks. Patient tolerated hyperbaric oxygen therapy well, without complaints or complications. Upon emergence from the hyperbaric chamber, the patient's vital signs remained stable. Pre-and post treatment blood sugars are documented elsewhere. The patient was discharged in good condition. Past Medical History Chronic Problems (Last Reviewed 04/24/20 @ 15:[address] 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) Tobacco abuse counseling (Chronic) Mixed hyperlipidemia (Chronic) Benign essential hypertension (Chronic) 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) Diabetes (Chronic) Type 2 diabetes mellitus (Chronic) Obstructive sleep apnea (Chronic) Uncontrolled diabetes mellitus (Chronic) Diabetic infection of left foot (Chronic) Osteomyelitis of great toe of left foot (Chronic) Morbid obesity due to excess calories (Chronic) Tobacco dependence due to cigarettes (Chronic) Diabetic neuropathy (Chronic) Hypertension (Chronic) 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) Allergies/Adverse Reactions: Allergies Sulfa (Sulfonamide Antibiotics) Allergy (Verified 05/24/20 10:13) Rash Home Medications: Ambulatory Orders Medication Instructions Recorded Calcium Carbonate [Calcium] 500 mg PO DAILY 06/23/17 Multivitamin [Multiple Vitamins] 1 ea PO DAILY 10/02/17 aspirin 81 mg tablet,delayed 81 mg PO DAILY 08/12/19 release atorvastatin 40 mg tablet 40 mg PO DAILY 10/18/19 bupropion HCl 150 mg 24 hr tablet, 150 mg PO BID tab 10/18/19 extended release lisinopril 10 mg tablet 10 mg PO DAILY 10/18/19 tamsulosin 0.4 mg capsule 0.4 mg PO DAILY@1730 cap 10/18/19 blood sugar diagnostic See Rx Instructions .ROUTE 10/28/19 .MEDSUPPLY #100 ea lancets 33 gauge See Rx Instructions .ROUTE 10/28/19 .MEDSUPPLY #100 ea gabapentin 300 mg capsule 600 mg PO TIDCM cap 04/24/20 Smz/Tmp Ds [Bactrim Ds] 1 tab PO BID #20 tab 05/10/20 insulin regular hum U-500 conc 145 unit SC TID #27 ml 05/12/20 Maternal Family History: Family History (Last Reviewed 04/24/20 @ 15:[address] Juan Arteaga MD) Father Myocardial infarction Heart disease Mother Kidney disease Diabetes Sister Asthma Breast cancer Hypertension Brother Alcoholism Melanoma Family History: Diabetes, Renal Disease - on dialysis Paternal Family History: Family History (Last Reviewed 04/24/20 @ 15:[address] Juan Arteaga MD) Father Myocardial infarction Heart disease Mother Kidney disease Diabetes Sister Asthma Breast cancer Hypertension Brother Alcoholism Melanoma Family History: Heart Disease Sibling Family History: Family History (Last Reviewed 04/24/20 @ 15:[address] Juan Arteaga MD) Father Myocardial infarction Heart disease Mother Kidney disease Diabetes Sister Asthma Breast cancer Hypertension Brother Alcoholism Melanoma Family History: Cancer - breast cancer in his sister Smoking Status: Heavy Smoker (>10/day) Physical Exam Vital Signs Temp Pulse Resp BP 98.2 F 73 18 136/84 H 06/01/20 10:45 06/01/20 10:45 06/01/20 10:45 06/01/20 10:45 General: Alert, Oriented x3, Cooperative, No apparent distress HEENT: Atraumatic, TM's Clear Lungs: Clear to auscultation, Normal air movement Cardiovascular: Regular rate, Regular Rhythm Psych/Mental Status: Normal Affect, Appropriate, Alert and oriented to time, place, person, mood and affect Assessment/Plan Active Problems (Last Reviewed 04/24/20 @ 15:[address] 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 (Chronic) History of transmetatarsal amputation of left foot (Chronic) Type 2 diabetes mellitus with diabetic polyneuropathy (Chronic) Treatment Course Number Number of HBO Treatments 30 Ordered Treatment Course Number 1 Treatment # 22 Chamber # [id number] Chamber Type Monoplace HBO Diagnosis/Indication Diagnosis/Indication(s) for Left Diabetic Foot Ulcer Hyperbaric Therapy Classification - Mancilla Grade 2 Grading (Diabetic Ulcer) [] Classification - Mancilla Grade 2 Grading (Diabetic Ulcer) [] Classification - [place]anc[place] Grade 3 Grading (Diabetic Ulcer) Diabetes - Detail Diabetes Diabetes Type II Left Extremity Ulcer, Other part of Foot Treatment Plan MARTITA (Atmospheric Absolute) 2.0 Number of Minutes 90 Number of Air Breaks 2
[2020-06-06 08:11] LABS: Bedside Glucose 146 mg/dL (70-110)
[2020-06-06 10:20] LABS: Bedside Glucose 173 mg/dL (70-110)
[2020-06-06 11:08] VITALS: BP 144/69; BP 174/78; PULSE 110; PULSE 76; RESP 18; RESP 20; TEMP 36.4; TEMP 36.8
--- NOTE | 2020-06-06 14:45 | PCM.HBO.PN ---
History of Present Illness Date of Service: 06/06/20 Presenting Chief Complaint: Diabetic left foot ulceration, Mancilla Grade 3, with infection GEN SIM is a 65 year old currently undergoing hyperbaric oxygen therapy for diabetic left foot infection, Mancilla grade 3. Progress: Today's session represents the 23rd session of hyperbaric oxygen therapy, of an expected 30 such treatments. Tolerance of hyperbaric oxygen therapy: Hyperbaric oxygen therapy was administered as per the facility's protocol. Hyperbaric oxygen therapy was administered at 2 silas for 90 minutes with two 5-minute air breaks. Patient tolerated hyperbaric oxygen therapy well, without complaints or complications. Upon emergence from the hyperbaric chamber, the patient's vital signs remained stable. Pre-and post treatment blood sugars are documented elsewhere. The patient was discharged in good condition. Past Medical History Chronic Problems (Last Reviewed 04/24/20 @ 15:[address] 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) Tobacco abuse counseling (Chronic) Mixed hyperlipidemia (Chronic) Benign essential hypertension (Chronic) 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) Diabetes (Chronic) Type 2 diabetes mellitus (Chronic) Obstructive sleep apnea (Chronic) Uncontrolled diabetes mellitus (Chronic) Diabetic infection of left foot (Chronic) Osteomyelitis of great toe of left foot (Chronic) Morbid obesity due to excess calories (Chronic) Tobacco dependence due to cigarettes (Chronic) Diabetic neuropathy (Chronic) Hypertension (Chronic) 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) Allergies/Adverse Reactions: Allergies Sulfa (Sulfonamide Antibiotics) Allergy (Verified 05/24/20 10:13) Rash Home Medications: Ambulatory Orders Medication Instructions Recorded Calcium Carbonate [Calcium] 500 mg PO DAILY 06/23/17 Multivitamin [Multiple Vitamins] 1 ea PO DAILY 10/02/17 aspirin 81 mg tablet,delayed 81 mg PO DAILY 08/12/19 release atorvastatin 40 mg tablet 40 mg PO DAILY 10/18/19 bupropion HCl 150 mg 24 hr tablet, 150 mg PO BID tab 10/18/19 extended release lisinopril 10 mg tablet 10 mg PO DAILY 10/18/19 tamsulosin 0.4 mg capsule 0.4 mg PO DAILY@1730 cap 10/18/19 blood sugar diagnostic See Rx Instructions .ROUTE 10/28/19 .MEDSUPPLY #100 ea lancets 33 gauge See Rx Instructions .ROUTE 10/28/19 .MEDSUPPLY #100 ea gabapentin 300 mg capsule 600 mg PO TIDCM cap 04/24/20 Smz/Tmp Ds [Bactrim Ds] 1 tab PO BID #20 tab 05/10/20 insulin regular hum U-500 conc 145 unit SC TID #27 ml 05/12/20 Maternal Family History: Family History (Last Reviewed 04/24/20 @ 15:[address] Juan Arteaga MD) Father Myocardial infarction Heart disease Mother Kidney disease Diabetes Sister Asthma Breast cancer Hypertension Brother Alcoholism Melanoma Family History: Diabetes, Renal Disease - on dialysis Paternal Family History: Family History (Last Reviewed 04/24/20 @ 15:[address] Juan Arteaga MD) Father Myocardial infarction Heart disease Mother Kidney disease Diabetes Sister Asthma Breast cancer Hypertension Brother Alcoholism Melanoma Family History: Heart Disease Sibling Family History: Family History (Last Reviewed 04/24/20 @ 15:[address] Juan Arteaga MD) Father Myocardial infarction Heart disease Mother Kidney disease Diabetes Sister Asthma Breast cancer Hypertension Brother Alcoholism Melanoma Family History: Cancer - breast cancer in his sister Smoking Status: Heavy Smoker (>10/day) Physical Exam Vital Signs Temp Pulse Resp BP 98.2 F 76 18 144/69 H 06/06/20 11:08 06/06/20 11:08 06/06/20 11:08 06/06/20 11:08 General: Alert, Oriented x3, Cooperative, No apparent distress, Well developed, Well nourished HEENT: Atraumatic, PERRLA, EOMI, Normocephalic Lungs: Normal air movement Psych/Mental Status: Normal Affect, Appropriate, Alert and oriented to time, place, person, mood and affect Assessment/Plan Active Problems (Last Reviewed 04/24/20 @ 15:[address] 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 (Chronic) History of transmetatarsal amputation of left foot (Chronic) Type 2 diabetes mellitus with diabetic polyneuropathy (Chronic) The patient appears to be tolerating hyperbaric oxygen therapy well, which will be continued as per the patient's medical plan. Treatment Course Number Number of HBO Treatments 30 Ordered Treatment Course Number 1 Treatment # 23 Chamber # 2 Chamber Type Monoplace HBO Diagnosis/Indication Diagnosis/Indication(s) for Left Diabetic Foot Ulcer Hyperbaric Therapy Classification - Mancilla Grade 2 Grading (Diabetic Ulcer) [] Classification - [place] Grade 2 Grading (Diabetic Ulcer) [] Classification - [place] Grade 3 Grading (Diabetic Ulcer) Diabetes - Detail Diabetes Diabetes Type II Left Extremity Ulcer, Other part of Foot Treatment Plan MARTITA (Atmospheric Absolute) 2 Number of Minutes 90 Number of Air Breaks 2
[2020-06-07 08:20] LABS: Bedside Glucose 148 mg/dL (70-110)
[2020-06-07 10:59] VITALS: BP 128/58; PULSE 98; RESP 18; TEMP 36.8; BMI 42.8
[2020-06-07 11:06] LABS: Bedside Glucose 107 mg/dL (70-110)
--- NOTE | 2020-06-07 11:07 | PCM.HBO.PN ---
History of Present Illness Date of Service: 06/07/20 Presenting Chief Complaint: Diabetic left foot ulceration, Mancilla Grade 3, with infection GEN SIM is a 65 year old currently undergoing hyperbaric oxygen therapy for diabetic left foot infection, Mancilla grade 3. Progress: Today's session represents the 24th session of hyperbaric oxygen therapy, of an expected 30 such treatments. Tolerance of hyperbaric oxygen therapy: Hyperbaric oxygen therapy was administered as per the facility's protocol. Hyperbaric oxygen therapy was administered at 2 silas for 90 minutes with two 5-minute air breaks. Patient tolerated hyperbaric oxygen therapy well, without complaints or complications. Upon emergence from the hyperbaric chamber, the patient's vital signs remained stable. Pre-and post treatment blood sugars are documented elsewhere. The patient was discharged in good condition. Past Medical History Chronic Problems (Last Reviewed 04/24/20 @ 15:[address] 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) Tobacco abuse counseling (Chronic) Mixed hyperlipidemia (Chronic) Benign essential hypertension (Chronic) 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) Diabetes (Chronic) Type 2 diabetes mellitus (Chronic) Obstructive sleep apnea (Chronic) Uncontrolled diabetes mellitus (Chronic) Diabetic infection of left foot (Chronic) Osteomyelitis of great toe of left foot (Chronic) Morbid obesity due to excess calories (Chronic) Tobacco dependence due to cigarettes (Chronic) Diabetic neuropathy (Chronic) Hypertension (Chronic) 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) Allergies/Adverse Reactions: Allergies Sulfa (Sulfonamide Antibiotics) Allergy (Verified 05/24/20 10:13) Rash Home Medications: Ambulatory Orders Medication Instructions Recorded Calcium Carbonate [Calcium] 500 mg PO DAILY 06/23/17 Multivitamin [Multiple Vitamins] 1 ea PO DAILY 10/02/17 aspirin 81 mg tablet,delayed 81 mg PO DAILY 08/12/19 release atorvastatin 40 mg tablet 40 mg PO DAILY 10/18/19 bupropion HCl 150 mg 24 hr tablet, 150 mg PO BID tab 10/18/19 extended release lisinopril 10 mg tablet 10 mg PO DAILY 10/18/19 tamsulosin 0.4 mg capsule 0.4 mg PO DAILY@1730 cap 10/18/19 blood sugar diagnostic See Rx Instructions .ROUTE 10/28/19 .MEDSUPPLY #100 ea lancets 33 gauge See Rx Instructions .ROUTE 10/28/19 .MEDSUPPLY #100 ea gabapentin 300 mg capsule 600 mg PO TIDCM cap 04/24/20 Smz/Tmp Ds [Bactrim Ds] 1 tab PO BID #20 tab 05/10/20 insulin regular hum U-500 conc 145 unit SC TID #27 ml 05/12/20 Maternal Family History: Family History (Last Reviewed 04/24/20 @ 15:[address] Juan Arteaga MD) Father Myocardial infarction Heart disease Mother Kidney disease Diabetes Sister Asthma Breast cancer Hypertension Brother Alcoholism Melanoma Family History: Diabetes, Renal Disease - on dialysis Paternal Family History: Family History (Last Reviewed 04/24/20 @ 15:[address] Juan Arteaga MD) Father Myocardial infarction Heart disease Mother Kidney disease Diabetes Sister Asthma Breast cancer Hypertension Brother Alcoholism Melanoma Family History: Heart Disease Sibling Family History: Family History (Last Reviewed 04/24/20 @ 15:[address] Juan Arteaga MD) Father Myocardial infarction Heart disease Mother Kidney disease Diabetes Sister Asthma Breast cancer Hypertension Brother Alcoholism Melanoma Family History: Cancer - breast cancer in his sister Smoking Status: Heavy Smoker (>10/day) Physical Exam Vital Signs Temp Pulse Resp BP 98.2 F 76 18 144/69 H 06/06/20 11:08 06/06/20 11:08 06/06/20 11:08 06/06/20 11:08 Assessment/Plan Active Problems (Last Reviewed 04/24/20 @ 15:[address] 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 (Chronic) History of transmetatarsal amputation of left foot (Chronic) Type 2 diabetes mellitus with diabetic polyneuropathy (Chronic) The patient appears to be tolerating hyperbaric oxygen therapy well, which will be continued as per the patient's medical plan. Treatment Course Number Number of HBO Treatments 30 Ordered Treatment Course Number 1 Treatment # 23 Chamber # 2 Chamber Type Monoplace HBO Diagnosis/Indication Diagnosis/Indication(s) for Left Diabetic Foot Ulcer Hyperbaric Therapy Classification - Mancilla Grade 2 Grading (Diabetic Ulcer) [#2 right 5th metatarsal] Classification - [place]ancilla Grade 2 Grading (Diabetic Ulcer) [#1 Left Plantar medial] Classification - [place]anc[place] Grade 3 Grading (Diabetic Ulcer) Diabetes - Detail Diabetes Diabetes Type II Left Extremity Ulcer, Other part of Foot Treatment Plan MARTITA (Atmospheric Absolute) 2 Number of Minutes 90 Number of Air Breaks 2
[2020-06-07 11:45] VITALS: BP 135/71; BP 142/72; PULSE 104; PULSE 75; RESP 18; TEMP 36.2; TEMP 36.4
--- NOTE | 2020-06-07 13:38 | RAD_ITS ---
STUDY: X-RAY - RIGHT FOOT CLINICAL: Male, 65 years old. PATIENT CLAIMS MULTIPLE ULCERS ON RIGHT FOOT. FOOT WRAPPED IN GAUZE. TECHNIQUE: 3 view(s) of the foot. COMPARISON: None. FINDINGS: Status post ORIF of the distal tibia. There is an enthesophyte involving the posterior superior calcaneus at the site of insertion of the Achilles tendon. Small plantar spur. Normal visualized subtalar, talonavicular, calcaneocuboid, tarsal and tarsometatarsal articulations. Normal metatarsi. There is degenerative arthrosis of the metatarsophalangeal joint of the hallux . Normal tibial and fibular sesamoid bones. Normal interphalangeal joint of the great toe. Normal phalanges of the great toe. Normal second through fifth metatarsophalangeal joints. Normal interphalangeal joints and phalanges of the lesser toes. Soft tissue swelling and ulceration overlying the fifth metatarsal phalangeal joint. RAD/Foot min 3 Views IMPRESSION: Soft tissue swelling and ulceration overlying the fifth metatarsophalangeal joint. No definite changes of osteomyelitis is seen. Electronically Signed: John Gibbons, at 13:56 EDT , Service support ,
[2020-06-07 14:00] LABS: Erythrocyte Sedimentation Rate 54 mm/hr (0-20)
[2020-06-07 14:02] LABS: Absolute Lymphocyte Count 2.35 X10^3/uL (0.83-4.51); Absolute Neutrophil Count 7.5 X10^3/uL (2.0-7.7); Basophil# 0.11 X10^3/uL; Eosinophil# 0.39 X10^3/uL; Eosinophils% 3.4 % (0-5); Hematocrit 42.6 % (40-54); Hemoglobin 13.5 g/dL (13.0-16.5); Lymphocyte # 2.35 X10^3/ul (4.0); Lymphocyte % 20.8 % (19-41); Mean Corp Hgb Conc 31.7 g/dL (32-36); Mean Corpuscular Hgb 29.3 pg (27.0-32.0); Mean Corpuscular Volume 92.4 fL (80-94); Monocyte# 0.82 X10^3/uL; Monocyte% 7.3 % (0-10); NRBC Flagged by Analyzer 0 % (0-5); Neutrophil # 7.48 X10^3/uL (2.7-7.7); Neutrophil % 66.1 % (47-70); Platelet Count 264 K/mm3 (150-450); RBC Distribution Width CV 14.7 % (11.6-14.6); RBC Distribution Width SD 49.2 fl (35.1-43.9); Red Blood Count 4.61 M/mm3 (4.6-6.2); White Blood Count 11.3 K/mm3 (4.4-11.0)
[2020-06-07 14:28] LABS: ALB/GLOB Ratio 0.6 RATIO (0.9-2.4); AST(SGOT) 25 U/L (15-37); Alanine Aminotransfer ALT/SGPT 28 U/L (16-61); Alkaline Phosphatase 73 U/L (45-117); Anion Gap 4 (5-15); BUN 10 mg/dL (7-18); BUN/Creat Ratio 12.3 RATIO (10-20); Calcium,Total 8.8 mg/dL (8.5-10.1); Chloride 105 mmol/L (98-107); Creatinine, Serum 0.81 mg/dL (0.70-1.30); EST Glomerular Filtration Rate 102 mL/min (>60); Est Glom Filt Rate - Afr Amer 123 mL/min (>60); Globulin 4.9 g/dL (2.2-4.2); Glucose 66 mg/dL (74-106); Potassium 4.1 mmol/L (3.5-5.1); Protein, Total 7.9 g/dL (6.4-8.2); Sodium Level 138 mmol/L (136-145)
[2020-06-07 16:40] LABS: M R Staph aureus DNA By PCR POSITIVE (Negative); Probe Check PASS; Staph aureus DNA By PCR POSITIVE (Negative)
[2020-06-08 12:20] LABS: Bedside Glucose 132 mg/dL (70-110)
[2020-06-08 12:50] VITALS: BP 140/77; BP 153/78; PULSE 104; PULSE 74; RESP 18; TEMP 36.5; TEMP 36.6
[2020-06-08 14:45] LABS: Bedside Glucose 141 mg/dL (70-110)
--- NOTE | 2020-06-08 16:00 | PCM.HBO.PN ---
History of Present Illness Date of Service: 06/08/20 Presenting Chief Complaint: Diabetic left foot ulceration, Mancilla Grade 3, with infection GEN SIM is a 65 year old currently undergoing hyperbaric oxygen therapy for diabetic left foot infection, Mancilla grade 3. Progress: Today's session represents the 25th session of hyperbaric oxygen therapy, of an expected 30 such treatments. Tolerance of hyperbaric oxygen therapy: Hyperbaric oxygen therapy was administered as per the facility's protocol. Hyperbaric oxygen therapy was administered at 2 silas for 90 minutes with two 5-minute air breaks. Patient tolerated hyperbaric oxygen therapy well, without complaints or complications. Upon emergence from the hyperbaric chamber, the patient's vital signs remained stable. Pre-and post treatment blood sugars are documented elsewhere. The patient was discharged in good condition. Past Medical History Chronic Problems (Last Reviewed 04/24/20 @ 15:[address] 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) Tobacco abuse counseling (Chronic) Mixed hyperlipidemia (Chronic) Benign essential hypertension (Chronic) 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) Diabetes (Chronic) Type 2 diabetes mellitus (Chronic) Obstructive sleep apnea (Chronic) Uncontrolled diabetes mellitus (Chronic) Diabetic infection of left foot (Chronic) Osteomyelitis of great toe of left foot (Chronic) Morbid obesity due to excess calories (Chronic) Tobacco dependence due to cigarettes (Chronic) Diabetic neuropathy (Chronic) Hypertension (Chronic) 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) Allergies/Adverse Reactions: Allergies Sulfa (Sulfonamide Antibiotics) Allergy (Verified 05/24/20 10:13) Rash Home Medications: Ambulatory Orders Medication Instructions Recorded Calcium Carbonate [Calcium] 500 mg PO DAILY 06/23/17 Multivitamin [Multiple Vitamins] 1 ea PO DAILY 06/23/17 aspirin 81 mg tablet,delayed 81 mg PO DAILY 08/12/19 release atorvastatin 40 mg tablet 40 mg PO DAILY 10/18/19 bupropion HCl 150 mg 24 hr tablet, 150 mg PO BID tab 10/18/19 extended release lisinopril 10 mg tablet 10 mg PO DAILY 10/18/19 tamsulosin 0.4 mg capsule 0.4 mg PO DAILY@1730 cap 10/18/19 blood sugar diagnostic See Rx Instructions .ROUTE 10/28/19 .MEDSUPPLY #100 ea lancets 33 gauge See Rx Instructions .ROUTE 10/28/19 .MEDSUPPLY #100 ea gabapentin 300 mg capsule 600 mg PO TIDCM cap 04/24/20 Smz/Tmp Ds [Bactrim Ds] 1 tab PO BID #20 tab 05/10/20 insulin regular hum U-500 conc 145 unit SC TID #27 ml 05/12/20 Maternal Family History: Family History (Last Reviewed 04/24/20 @ 15:[address] Juan Arteaga MD) Father Myocardial infarction Heart disease Mother Kidney disease Diabetes Sister Asthma Breast cancer Hypertension Brother Alcoholism Melanoma Family History: Diabetes, Renal Disease - on dialysis Paternal Family History: Family History (Last Reviewed 04/24/20 @ 15:[address] Juan Arteaga MD) Father Myocardial infarction Heart disease Mother Kidney disease Diabetes Sister Asthma Breast cancer Hypertension Brother Alcoholism Melanoma Family History: Heart Disease Sibling Family History: Family History (Last Reviewed 04/24/20 @ 15:[address] Juan Arteaga MD) Father Myocardial infarction Heart disease Mother Kidney disease Diabetes Sister Asthma Breast cancer Hypertension Brother Alcoholism Melanoma Family History: Cancer - breast cancer in his sister Smoking Status: Heavy Smoker (>10/day) Physical Exam Vital Signs Temp Pulse Resp BP 97.7 F L 74 18 153/78 H 06/08/20 12:50 06/08/20 12:50 06/08/20 12:50 06/08/20 12:50 General: Alert, Oriented x3, Cooperative, No apparent distress HEENT: Atraumatic, PERRLA, Normocephalic, TM's Clear Lungs: Clear to auscultation, Normal air movement, No rhonchi, No wheeze, No rales Cardiovascular: Regular rate, Regular Rhythm, Normal S1, Normal S2 Psych/Mental Status: Normal Affect, Alert and oriented to time, place, person, mood and affect Assessment/Plan Active Problems (Last Reviewed 04/24/20 @ 15:[address] 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 (Chronic) History of transmetatarsal amputation of left foot (Chronic) Type 2 diabetes mellitus with diabetic polyneuropathy (Chronic) The patient appears to be tolerating hyperbaric oxygen therapy well, which will be continued as per the patient's medical plan. Treatment Course Number Number of HBO Treatments 30 Ordered Treatment Course Number 1 Treatment # 25 Chamber # [id number] Chamber Type Monoplace HBO Diagnosis/Indication Diagnosis/Indication(s) for Left Diabetic Foot Ulcer Hyperbaric Therapy Classification - Mancilla Grade 2 Grading (Diabetic Ulcer) [] Classification - [place] Grade 2 Grading (Diabetic Ulcer) [] Classification - [place] Grade 3 Grading (Diabetic Ulcer) Diabetes - Detail Diabetes Diabetes Type II Left Extremity Ulcer, Other part of Foot Treatment Plan MARTITA (Atmospheric Absolute) 2.0 Number of Minutes 90 Number of Air Breaks 2 The patient appears to be tolerating hyperbaric oxygen therapy well, which will be continued as per the patient's medical plan.
[2020-06-09 08:31] LABS: Bedside Glucose 208 mg/dL (70-110)
[2020-06-09 10:40] LABS: Bedside Glucose 194 mg/dL (70-110)
[2020-06-09 11:08] VITALS: BP 176/64; BP 180/77; PULSE 69; PULSE 84; RESP 16; TEMP 36.6
--- NOTE | 2020-06-09 16:51 | PCM.HBO.PN ---
History of Present Illness Date of Service: 06/09/20 Presenting Chief Complaint: Diabetic left foot ulceration, Mancilla Grade 3, with infection GEN SIM is a 65 year old currently undergoing hyperbaric oxygen therapy for diabetic left foot infection, Mancilla grade 3. Progress: Today's session represents the 26th session of hyperbaric oxygen therapy, of an expected 30 such treatments. Tolerance of hyperbaric oxygen therapy: Hyperbaric oxygen therapy was administered as per the facility's protocol. Hyperbaric oxygen therapy was administered at 2 silas for 90 minutes with two 5-minute air breaks of 100% oxygen. Patient tolerated hyperbaric oxygen therapy well, without complaints or complications. Upon emergence from the hyperbaric chamber, the patient's vital signs remained stable. Pre-and post treatment blood sugars are documented in the clinical panel. The patient was discharged in good condition. Past Medical History Chronic Problems (Last Reviewed 04/24/20 @ 15:[address] 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) Tobacco abuse counseling (Chronic) Mixed hyperlipidemia (Chronic) Benign essential hypertension (Chronic) 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) Diabetes (Chronic) Type 2 diabetes mellitus (Chronic) Obstructive sleep apnea (Chronic) Uncontrolled diabetes mellitus (Chronic) Diabetic infection of left foot (Chronic) Osteomyelitis of great toe of left foot (Chronic) Morbid obesity due to excess calories (Chronic) Tobacco dependence due to cigarettes (Chronic) Diabetic neuropathy (Chronic) Hypertension (Chronic) 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) Allergies/Adverse Reactions: Allergies Sulfa (Sulfonamide Antibiotics) Allergy (Verified 05/24/20 10:13) Rash Home Medications: Ambulatory Orders Medication Instructions Recorded Calcium Carbonate [Calcium] 500 mg PO DAILY 06/23/17 Multivitamin [Multiple Vitamins] 1 ea PO DAILY 06/23/17 aspirin 81 mg tablet,delayed 81 mg PO DAILY 08/12/19 release atorvastatin 40 mg tablet 40 mg PO DAILY 10/18/19 bupropion HCl 150 mg 24 hr tablet, 150 mg PO BID tab 10/18/19 extended release lisinopril 10 mg tablet 10 mg PO DAILY 10/18/19 tamsulosin 0.4 mg capsule 0.4 mg PO DAILY@1730 cap 10/18/19 blood sugar diagnostic See Rx Instructions .ROUTE 10/28/19 .MEDSUPPLY #100 ea lancets 33 gauge See Rx Instructions .ROUTE 10/28/19 .MEDSUPPLY #100 ea gabapentin 300 mg capsule 600 mg PO TIDCM cap 04/24/20 Smz/Tmp Ds [Bactrim Ds] 1 tab PO BID #20 tab 05/10/20 insulin regular hum U-500 conc 145 unit SC TID #27 ml 05/12/20 Maternal Family History: Family History (Last Reviewed 04/24/20 @ 15:[address] Juan Arteaga MD) Father Myocardial infarction Heart disease Mother Kidney disease Diabetes Sister Asthma Breast cancer Hypertension Brother Alcoholism Melanoma Family History: Diabetes, Renal Disease - on dialysis Paternal Family History: Family History (Last Reviewed 04/24/20 @ 15:[address] Juan Arteaga MD) Father Myocardial infarction Heart disease Mother Kidney disease Diabetes Sister Asthma Breast cancer Hypertension Brother Alcoholism Melanoma Family History: Heart Disease Sibling Family History: Family History (Last Reviewed 04/24/20 @ 15:[address] Juan Arteaga MD) Father Myocardial infarction Heart disease Mother Kidney disease Diabetes Sister Asthma Breast cancer Hypertension Brother Alcoholism Melanoma Family History: Cancer - breast cancer in his sister Smoking Status: Heavy Smoker (>10/day) Physical Exam Vital Signs Temp Pulse Resp BP 97.8 F 69 16 180/77 H 06/09/20 11:08 06/09/20 11:08 06/09/20 11:08 06/09/20 11:08 General: Alert, Oriented x3, Cooperative, No apparent distress Psych/Mental Status: Normal Affect, Appropriate Assessment/Plan Active Problems (Last Reviewed 04/24/20 @ 15:[address] 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 (Chronic) History of transmetatarsal amputation of left foot (Chronic) Type 2 diabetes mellitus with diabetic polyneuropathy (Chronic) The patient appears to be tolerating hyperbaric oxygen therapy well, which will be continued as per the patient's medical plan. Treatment Course Number Number of HBO Treatments 30 Ordered Treatment Course Number 1 Treatment # 26 Chamber # 2 Chamber Type Monoplace HBO Diagnosis/Indication Diagnosis/Indication(s) for Left Diabetic Foot Ulcer Hyperbaric Therapy Classification - Mancilla Grade 2 Grading (Diabetic Ulcer) [] Classification - [place] Grade 2 Grading (Diabetic Ulcer) [] Classification - [place] Grade 3 Grading (Diabetic Ulcer) Diabetes - Detail Diabetes Diabetes Type II Left Extremity Ulcer, Other part of Foot Treatment Plan MARTITA (Atmospheric Absolute) 2 Number of Minutes 90 Number of Air Breaks 2
--- NOTE | 2020-06-10 18:36 | PN.PCM_ITS ---
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 Current Visit: Yes Code(s): L97.523 - Non-pressure chronic ulcer of other part of left foot with necrosis of muscle (2) Type 2 diabetes mellitus with diabetic polyneuropathy Status: Chronic Current Visit: Yes Qualifiers: Code(s): E11.42 - Type 2 diabetes mellitus with diabetic polyneuropathy (3) Osteomyelitis of left foot Status: Resolved Current Visit: Yes Code(s): M86.9 - Osteomyelitis, unspecified (4) History of transmetatarsal amputation of left foot Status: Chronic Current Visit: Yes Code(s): Z89.432 - Acquired absence of left foot (5) MRSA (methicillin resistant staph aureus) culture positive Status: Resolved Current Visit: Yes Code(s): Z22.322 - Carrier or suspected carrier of Methicillin resistant Staphylococcus aureus (6) Ulcer of right foot with fat layer exposed Status: Acute Current Visit: Yes Code(s): L97.512 - Non-pressure chronic ulcer of other part of right foot with fat layer exposed Type of Wound Date of Service: 06/07/20 Chief Complaint: Diabetic left foot ulceration, [place] Grade 3, with infection History of Wound: This 65-year-old male with multiple comorbidities was seen today for left foot ulcer. His left foot ulcer onset was 12-07-2019. He is previously known to me and had a left transmetatarsal amputation performed previously. That has since been healed. He had a total contact cast applied last week and kept this clean, dry, and intact. His antibiotics were also recently changed to linezolid. He completed this course. He is doing much better since his transition has occurred. He denies diarrhea, rash, fever, chill, nausea, vomiting. He also continues hyperbaric oxygen therapy. He denies known wounds to the right lower extremity and is amendable for a lower extremity check today. Progress of Wound: Improving left. multiple new ulcers right lower extremity - Physical Exam Vital Signs Temp Pulse Resp BP 97.8 F 69 16 180/77 H 06/09/20 11:08 06/09/20 11:08 06/09/20 11:08 06/09/20 11:08 General: Alert, Oriented x3, Cooperative, No apparent distress HEENT: Atraumatic Extremities: No cyanosis, Capillary Refill Less than 3 Seconds, No Calf Tenderness, Diminished Peripheral Pulses, Edema Skin: Ulcer/ Wound - Ulcer left foot does not have purulence, erythema, string, odor, infection. Improvement in the granular base is noted. The right lower extremity have multiple new ulcers with unknown onset in which the plantar lateral ulcer near the fifth metatarsal head has an eschar and upon debridement there is granulation tissue. No deep bone or necrosis or purulence noted. There is also skin discontinuity to the dorsal 1, 2, 3 digits, dorsal medial cluster foot, and medial ankle., - - Skin is hairless and atrophic. Bilateral lower extremities compartments remain soft and there is no bogginess or fluctuance on palpation. Wound Measurements and Assessment - Nurse 3 - General Ulcer D/C NN Start: 05/24/20 09:49 Freq: Status: Active Protocol: Activity Type Activity Date Activity User E-Sign Co-Sign Detail Recorded Client Recorded Date Recorded By Document 06/09/20 11:08 [id number] 06/09/20 11:14 06/09/20 11:08 Pain Scale: 0-10 Numeric [Pain] -Is Patient Pain Free? Yes - Visit Discharge [Visit Discharge Information] -Discharge Condition Stable -Ambulatory Status Ambulatory -Transportation Private Auto -Medication Reconcilliation completed Yes & provided to patient/care provider -Clinical Summary of Care Provided Yes Musculoskeletal: No Tenderness to Palpation of Joints or Extremities, Muscle Wasting, - - Dorsal contracture lesser toes right foot. Left foot transmetatarsal amputation Neurological: - - Lack of normal epicritic sensation light touch is consistent with neuropathy status Psych/Mental Status: Normal Affect, Appropriate Debridement Note Post-Debridement Measurements/Treatment - Nurse 2 - General Ulcer CM Notes Start: 05/24/20 09:49 Freq: Status: Active Protocol: Activity Type Activity Date Activity User E-Sign Co-Sign Detail Recorded Client Recorded Date Recorded By Document 05/24/20 10:23 [id number] 05/24/20 10:30 Document 05/31/20 11:30 [id number] 05/31/20 11:33 Document 06/07/20 12:40 [id number] 06/07/20 12:49 05/24/20 05/31/20 06/07/20 10:23 11:30 12:40 Wound Center Nurse 2 #9 right lateral plantar -Time 12:41 -Correct Patient Yes -Correct Side, Site, Position Yes -Correct Procedure Yes -Procedure Performed Yes -Type of Procedure Debridement -Clinical Debridement Subcutaneous -Tissue Removed Subcutaneous -Post Debridement (cm) - Length 1.8 -Post Debridement (cm) - Width 2.3 -Post Debridement (cm) - Depth 0.5 -Total Square (Post) (cm) 4.14 -Area of Debridement (cm) - Length 1.8 -Area of Debridement (cm) - Width 2.3 -Total Square (Area) (cm) 4.14 -Tunneling No -Undermining/Tunneling No -Circular Undermining No -Wound/Ulcer Outcome Not Healed -Ulcer Cleansing Rinsed/ Irrigated with Saline -Foul Odor after Cleansing No -Bioengineered Tissue No -Bleeding Controlled with Pressure -Offloading No -Treatment Response Procedure Tolerated Well -Debridement - Subq, 1st 20sq cm Yes #8 right 3rd toe -Time 12:43 -Correct Patient Yes -Correct Side, Site, Position Yes -Correct Procedure Yes -Procedure Performed Yes -Type of Procedure Debridement -Clinical Debridement Subcutaneous -Tissue Removed Subcutaneous -Post Debridement (cm) - Length 0.3 -Post Debridement (cm) - Width 0.4 -Post Debridement (cm) - Depth 0.2 -Total Square (Post) (cm) 0.12 -Area of Debridement (cm) - Length 0.3 -Area of Debridement (cm) - Width 0.4 -Total Square (Area) (cm) 0.12 -Tunneling No -Undermining/Tunneling No -Circular Undermining No -Wound/Ulcer Outcome Not Healed -Ulcer Cleansing Rinsed/ Irrigated with Saline -Foul Odor after Cleansing No -Bioengineered Tissue No -Bleeding Controlled with Pressure -Offloading Yes -Type of Offloading Surgical Shoe -Treatment Response Procedure Tolerated Well -Debridement - Subq, 1st 20sq cm No #7 right 2nd toe -Time 12:43 -Correct Patient Yes -Correct Side, Site, Position Yes -Correct Procedure Yes -Procedure Performed Yes -Type of Procedure Debridement -Clinical Debridement Subcutaneous -Tissue Removed Subcutaneous -Post Debridement (cm) - Length 2.3 -Post Debridement (cm) - Width 1.3 -Post Debridement (cm) - Depth 0.3 -Total Square (Post) (cm) 2.99 -Area of Debridement (cm) - Length 2.3 -Area of Debridement (cm) - Width 1.3 -Total Square (Area) (cm) 2.99 -Tunneling No -Undermining/Tunneling No -Circular Undermining No -Wound/Ulcer Outcome Not Healed -Ulcer Cleansing Rinsed/ Irrigated with Saline -Foul Odor after Cleansing No -Bioengineered Tissue No -Bleeding Controlled with Pressure -Offloading Yes -Type of Offloading Surgical Shoe -Treatment Response Procedure Tolerated Well -Debridement - Subq, 1st 20sq cm No #6 right lateral base great toe -Time 12:44 -Correct Patient Yes -Correct Side, Site, Position Yes -Correct Procedure Yes -Procedure Performed Yes -Type of Procedure Debridement -Clinical Debridement Subcutaneous -Tissue Removed Subcutaneous -Post Debridement (cm) - Length 0.2 -Post Debridement (cm) - Width 0.8 -Post Debridement (cm) - Depth 0.2 -Total Square (Post) (cm) 0.16 -Area of Debridement (cm) - Length 0.2 -Area of Debridement (cm) - Width 0.8 -Total Square (Area) (cm) 0.16 -Tunneling No -Undermining/Tunneling No -Circular Undermining No -Wound/Ulcer Outcome Not Healed -Ulcer Cleansing Rinsed/ Irrigated with Saline -Foul Odor after Cleansing No -Bioengineered Tissue No -Bleeding Controlled with Pressure -Offloading Yes -Type of Offloading Surgical Shoe -Treatment Response Procedure Tolerated Well -Debridement - Subq, 1st 20sq cm No #5 right great toe cluster -Time 12:44 -Correct Patient Yes -Correct Side, Site, Position Yes -Correct Procedure Yes -Procedure Performed Yes -Type of Procedure Debridement -Clinical Debridement Subcutaneous -Tissue Removed Subcutaneous -Post Debridement (cm) - Length 0.5 -Post Debridement (cm) - Width 2.4 -Post Debridement (cm) - Depth 0.3 -Total Square (Post) (cm) 1.20 -Area of Debridement (cm) - Length 0.5 -Area of Debridement (cm) - Width 2.4 -Total Square (Area) (cm) 1.20 -Tunneling No -Undermining/Tunneling No -Circular Undermining No -Wound/Ulcer Outcome Not Healed -Ulcer Cleansing Rinsed/ Irrigated with Saline -Foul Odor after Cleansing No -Bioengineered Tissue No -Bleeding Controlled with Pressure -Offloading Yes -Type of Offloading Surgical Shoe -Treatment Response Procedure Tolerated Well -Debridement - Subq, 1st 20sq cm No #4 right medial dorsal cluster -Time 12:45 -Correct Patient Yes -Correct Side, Site, Position Yes -Correct Procedure Yes -Procedure Performed Yes -Type of Procedure Debridement -Clinical Debridement Subcutaneous -Tissue Removed Subcutaneous -Post Debridement (cm) - Length 1.8 -Post Debridement (cm) - Width 1.2 -Post Debridement (cm) - Depth 0.2 -Total Square (Post) (cm) 2.16 -Area of Debridement (cm) - Length 1.8 -Area of Debridement (cm) - Width 1.2 -Total Square (Area) (cm) 2.16 -Tunneling No -Undermining/Tunneling No -Circular Undermining No -Wound/Ulcer Outcome Not Healed -Ulcer Cleansing Rinsed/ Irrigated with Saline -Foul Odor after Cleansing No -Bioengineered Tissue No -Bleeding Controlled with Pressure -Offloading Yes -Type of Offloading Surgical Shoe -Treatment Response Procedure Tolerated Well -Debridement - Subq, 1st 20sq cm No #3 right medial ankle -Time 12:46 -Correct Patient Yes -Correct Side, Site, Position Yes -Correct Procedure Yes -Procedure Performed Yes -Type of Procedure Debridement -Clinical Debridement Subcutaneous -Tissue Removed Subcutaneous -Post Debridement (cm) - Length 3.5 -Post Debridement (cm) - Width 2.4 -Post Debridement (cm) - Depth 0.2 -Total Square (Post) (cm) 8.40 -Area of Debridement (cm) - Length 3.5 -Area of Debridement (cm) - Width 2.4 -Total Square (Area) (cm) 8.40 -Tunneling No -Undermining/Tunneling No -Circular Undermining No -Wound/Ulcer Outcome Not Healed -Ulcer Cleansing Rinsed/ Irrigated with Saline -Foul Odor after Cleansing No -Bioengineered Tissue No -Bleeding Controlled with Pressure -Offloading Yes -Type of Offloading Surgical Shoe -Treatment Response Procedure Tolerated Well -Debridement - Subq, 1st 20sq cm No #1 Left Plantar medial -Time 10:23 11:31 12:46 -Correct Patient Yes Yes Yes -Correct Side, Site, Position Yes Yes Yes -Correct Procedure Yes Yes Yes -Procedure Performed Yes Yes Yes -Type of Procedure Debridement Debridement Debridement -Clinical Debridement Subcutaneous Subcutaneous Subcutaneous -Tissue Removed Subcutaneous Subcutaneous Subcutaneous -Post Debridement (cm) - Length 2.2 2.0 2.1 -Post Debridement (cm) - Width 2.2 2.0 2 -Post Debridement (cm) - Depth 0.3 0.6 0.3 -Total Square (Post) (cm) 4.84 4.00 4.2 -Area of Debridement (cm) - Length 2.2 2.0 2.1 -Area of Debridement (cm) - Width 2.2 2.0 2 -Total Square (Area) (cm) 4.84 4.00 4.2 -Tunneling No No No -Undermining/Tunneling No No No -Circular Undermining No No No -Wound/Ulcer Outcome Not Healed Not Healed Not Healed -Ulcer Cleansing Rinsed/ Rinsed/ Rinsed/ Irrigated with Irrigated with Irrigated with Saline Saline Saline -Foul Odor after Cleansing No No No -Bioengineered Tissue Yes Yes Yes -Type of Bioengineered Tissue Epifix Epifix 18mm Epifix Disc -Expiration Date 01/20/25 01/20/25 01/20/25 -Product Lot Number [id number] -Percent Used 100 100 100 -Saline Lot Number [id number] -Bleeding Controlled with Pressure Pressure Pressure -Offloading Yes Yes Yes -Type of Offloading Total Contact Total Contact Total Contact Cast (TCC) - Cast (TCC) - Cast (TCC) - Left ($) Left ($) Left ($) -Treatment Response Procedure Procedure Tolerated Well Tolerated Well -Debridement - Subq, 1st 20sq cm No No No -Apply Skin Sub - 1st 25 sq cm - Feet 1 1 1 -Epifix (per sq cm) 4 4 4 -Epifix 18mm Disc 0 Pain Scale: 0-10 Numeric Is Patient Pain Free? Yes Yes Yes - Nurse 3 - General Ulcer D/C NN Start: 05/24/20 09:49 Freq: Status: Active Protocol: Activity Type Activity Date Activity User E-Sign Co-Sign Detail Recorded Client Recorded Date Recorded By Document 05/24/20 10:47 RB [id number] 05/24/20 10:48 RB Document 05/30/20 12:22 JF [id number] 05/30/20 12:25 JF Document 05/31/20 11:52 RB [id number] 05/31/20 11:53 RB Document 06/06/20 11:08 JF [id number] 06/06/20 11:12 JF Document 06/09/20 11:08 [id number] 06/09/20 11:14 JF 05/24/20 05/30/20 05/31/20 10:47 12:22 11:52 Wound Care Nurse 3 #1 Left Plantar medial -Other Dressing primary layer primary layer TCC TCC applied Left -Other primary layer TCC 3 inch Treatment Response Procedure Procedure Tolerated Well Tolerated Well Pain Scale: 0-10 Numeric Is Patient Pain Free? Yes Yes Yes Teaching: Wound Center Foot Care -Person Taught Patient -Teaching Method Discussion -Response to teaching Verbalize understanding WC - Visit Discharge Discharge Condition Stable Stable Stable Ambulatory Status Ambulatory Ambulatory,Cane Cane Transportation Private Auto Private Auto Private Auto Medication Reconcilliation completed & No Yes No provided to patient/care provider Clinical Summary of Care Provided Yes Yes Yes 06/06/20 06/09/20 11:08 11:08 Wound Care Nurse 3 #1 Left Plantar medial -Other Dressing Left -Other Treatment Response Pain Scale: 0-10 Numeric Is Patient Pain Free? Yes Yes Teaching: Wound Center Foot Care -Person Taught -Teaching Method -Response to teaching WC - Visit Discharge Discharge Condition Stable Stable Ambulatory Status Ambulatory Ambulatory Transportation Private Auto Private Auto Medication Reconcilliation completed & Yes Yes provided to patient/care provider Clinical Summary of Care Provided Yes Yes Wound debrided: plantar medial foot Laterality: Left Wound Grade/Stage: grade 3 Type of Debridement: Excisional debridement Anesthesia Used: 5% Lidocaine Gel Depth: in the subcutaneous layer Percentage of wound debrided: 100 Instrument Used: #15 blade Tissue Removed: fibrous, devitalized subcutaneous, biofilm, slough Severity: Fat Layer Exposed Amount of bleeding with debridement: Mild Bleeding Controlled with: Pressure Patient tolerated procedure well - Additional Wound Wound debrided: dorsal toe (1,2,3), dorsal medial foot, medial ankle, plantar lateral foot Laterality: Right Wound Grade/Stage: grade 1 Type of Debridement: Excisional debridement Anesthesia Used: 5% Lidocaine Gel Depth: in the subcutaneous layer Percentage of wound debrided: 100 Instrument Used: #15 blade Tissue Removed: fibrous, devitalized subcutaneous, biofilm, slough Severity: Fat Layer Exposed Amount of bleeding with debridement: Mild Bleeding Controlled with: Pressure Patient tolerated procedure: Patient tolerated procedure well Assessment/Plan Clinical Impression(s) from Imaging Studies Foot X-Ray 06/07/20 13:38 IMPRESSION: Soft tissue swelling and ulceration overlying the fifth metatarsophalangeal joint. No definite changes of osteomyelitis is seen. Electronically Signed: John Gibbons, at 13:56 EDT , Service support , Active Problems (Last Reviewed 04/24/20 @ 15:[address] 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 Multiple new foot ulcers include plantar lateral, dorsal medial, medial ankle, dorsal hallux, second toe, and third toe. Morbid obesity. 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 Subcutaneous excisional debridement was performed as noted in the clinical panel to the left foot. The peripheral callus was also debrided which is decreased. His ulcer status has improved. There is no longer any tendon exposed today. I would like to consider advanced wound healing product application, epi-fix, and verbal consent was obtained today. The benefits, indications, anticipated application, healing time management were reviewed. This was applied according standard protocol and further secured with a wound veil and Steri-Strips. He tolerated this well. He did well with a total contact cast last week and there is been significant reduction in inflammation and callus formation. I recommend application today. Verbal consent was obtained and this was applied according to standard protocol in a neutral position well-padded manner. He tolerated this well. He is advised to keep this clean, dry, and intact until follow-up next week. I discussed other offloading techniques such as using a walker or a knee roller. His noninvasive vascular studies were reviewed from which were normal and intervention was previously not recommended. I advised him to follow-up with all of Dr. Bonilla's recommendations to optimize his healing process. He has for help scheduling this because he has not been able to do this. He has recently been seen and intervention is planned for arterial optimization. An updated bilateral duplex was also recommended to help with planning. He had an updated left foot x-ray which did not demonstrate any new progressive osseous destruction, soft tissue emphysema, fracture, dislocation, or foreign body. His culture demonstrated MRSA growth and he did have elevated white blood cell count of 11.2. He was started on antibiotics and the type of antibiotics was changed a couple times due to reported side effects and resistance. He completed a course of Linezolid. I recommend that he sees infectious disease because he is very high risk and input is greatly appreciated. I also previously recommended an MRI to confirm the extent of infection. This was reviewed during his other recent visit without radiographic evidence of acute osteomyelitis, abscess, or other acute findings. He had a history of chronic refractory osteomyelitis that is documented from earlier this year. To continue to work on decreasing glucose levels. He has a history of hyperglycemia. To continue to follow-up with nutritional services. To continue to follow-up as advised. He is currently making adjustments with his eating habits. He also follows up with parimutuel ticket checker, Dr. Arteaga who is working with him to reduce his hemoglobin A1c with medication and behavioral changes. His other labs were reviewed including CBC and CMP. WBC of 12.4 is noted. ESR was updated at 54 and C-reactive protein was 14.3. Smoking cessation was discussed in detail and he was advised on the healing impairment associated with this. To continue with his smoking cessation program. I also recommend discontinuation of nicotine products for this also contributes to small vessel contraction. He has demonstrated appropriate stabilization from an ulcer standpoint with recent quality and size improvement. His infection also appears to be stabilizing. I recommend the continuation of hyperbaric oxygen therapy. This is medically necessary and he is responding well and making appropriate progress. Additional sessions will be requested. Is noted his nutrition, vascular, and medical status is optimized. I advised him of the benefits. Additional insurance authorization will be pursued at this time. The patient is amendable and states he is ready to resume. His right lower extremity was also reviewed today multiple new ulcers were identified. Subcutaneous excisional debridement was performed as noted in the clinical panel. I recommend updating foot x-rays. Culture was also obtained due to the moist eschar that was noted the plantar lateral aspect including aerobic, anaerobic, acid-fast, fungal. Updated labs were also ordered including CBC, ESR, C-reactive protein, and CMP. These results are pending. After debridement there was no additional eschar or purulence noted. The excised tissue was very devitalized. He is very high risk for ongoing infection and complications will be monitored close. He is advised to offload in a surgical shoe was fitted and dispensed. To place weight on his heel. Wearing bilateral total contact cast or cam walker on the right side is not recommended due to fall risk. He was advised to use an assistive device keep pressure off of his new ulcer sites as well. I answered all of his questions today. To return to clinic in 1 week or call sooner if questions, concerns, or progressive worsening.
[2020-06-12 08:15] LABS: Bedside Glucose 300 mg/dL (70-110)
[2020-06-12 08:20] LABS: Bedside Glucose 305 mg/dL (70-110)
--- NOTE | 2020-06-12 08:33 | HBO.PN.PCM_ITS ---
History of Present Illness Date of Service: 06/12/20 Presenting Chief Complaint: Diabetic left foot ulceration, Mancilla Grade 3, with infection GEN SIM is a 65 year old currently undergoing hyperbaric oxygen therapy for diabetic left foot infection, Mancilla grade 3. Progress: Today's session represents the 26th session of hyperbaric oxygen therapy, of an expected 30 such treatments. Tolerance of hyperbaric oxygen therapy: The patient was found to have elevated blood glucose levels today. Please see documented blood glucose levels elsewhere documented. He is also complaining of some discomfort to the right ear. Upon examination I am not able to visualize the right tympanic membrane due to hard cerumen. Left tympanic membrane is visible and the eustachian tube is intact. Advised the patient to be seen by manager operations research to have the cerumen in the right ear canal removed and the tympanic membrane evaluated. No dive today. Past Medical History Chronic Problems (Last Reviewed 04/24/20 @ 15:[address] 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) Tobacco abuse counseling (Chronic) Mixed hyperlipidemia (Chronic) Benign essential hypertension (Chronic) 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) Diabetes (Chronic) Type 2 diabetes mellitus (Chronic) Obstructive sleep apnea (Chronic) Uncontrolled diabetes mellitus (Chronic) Diabetic infection of left foot (Chronic) Osteomyelitis of great toe of left foot (Chronic) Morbid obesity due to excess calories (Chronic) Tobacco dependence due to cigarettes (Chronic) Diabetic neuropathy (Chronic) Hypertension (Chronic) 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) Allergies/Adverse Reactions: Allergies Sulfa (Sulfonamide Antibiotics) Allergy (Verified 05/24/20 10:13) Rash Home Medications: Ambulatory Orders Medication Instructions Recorded Calcium Carbonate [Calcium] 500 mg PO DAILY 06/23/17 Multivitamin [Multiple Vitamins] 1 ea PO DAILY 06/23/17 aspirin 81 mg tablet,delayed 81 mg PO DAILY 08/12/19 release atorvastatin 40 mg tablet 40 mg PO DAILY 10/18/19 bupropion HCl 150 mg 24 hr tablet, 150 mg PO BID tab 10/18/19 extended release lisinopril 10 mg tablet 10 mg PO DAILY 10/18/19 tamsulosin 0.4 mg capsule 0.4 mg PO DAILY@1730 cap 10/18/19 blood sugar diagnostic See Rx Instructions .ROUTE 10/28/19 .MEDSUPPLY #100 ea lancets 33 gauge See Rx Instructions .ROUTE 10/28/19 .MEDSUPPLY #100 ea gabapentin 300 mg capsule 600 mg PO TIDCM cap 04/24/20 Smz/Tmp Ds [Bactrim Ds] 1 tab PO BID #20 tab 05/10/20 insulin regular hum U-500 conc 145 unit SC TID #27 ml 05/12/20 Levofloxacin 500 mg PO DAILY 4 Days #4 tab 06/11/20 Linezolid 600 MG [Zyvox 600mg IVPB] 600 mg PO Q12 4 Days #8 tab 06/11/20 Maternal Family History: Family History (Last Reviewed 04/24/20 @ 15:[address] Juan Arteaga MD) Father Myocardial infarction Heart disease Mother Kidney disease Diabetes Sister Asthma Breast cancer Hypertension Brother Alcoholism Melanoma Family History: Diabetes, Renal Disease - on dialysis Paternal Family History: Family History (Last Reviewed 04/24/20 @ 15:[address] Juan Arteaga MD) Father Myocardial infarction Heart disease Mother Kidney disease Diabetes Sister Asthma Breast cancer Hypertension Brother Alcoholism Melanoma Family History: Heart Disease Sibling Family History: Family History (Last Reviewed 04/24/20 @ 15:[address] Juan Arteaga MD) Father Myocardial infarction Heart disease Mother Kidney disease Diabetes Sister Asthma Breast cancer Hypertension Brother Alcoholism Melanoma Family History: Cancer - breast cancer in his sister Smoking Status: Heavy Smoker (>10/day) Physical Exam Vital Signs Temp Pulse Resp BP 97.8 F 69 16 180/77 H 06/09/20 11:08 06/09/20 11:08 06/09/20 11:08 06/09/20 11:08 Assessment/Plan Active Problems (Last Reviewed 04/24/20 @ 15:[address] 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 (Chronic) History of transmetatarsal amputation of left foot (Chronic) Ulcer of right foot with fat layer exposed (Acute) Type 2 diabetes mellitus with diabetic polyneuropathy (Chronic) Treatment Course Number Number of HBO Treatments 30 Ordered Treatment Course Number 1 Treatment # 26 Chamber # 2 Chamber Type Monoplace HBO Diagnosis/Indication Diagnosis/Indication(s) for Left Diabetic Foot Ulcer Hyperbaric Therapy Classification - Mancilla Grade 2 Grading (Diabetic Ulcer) [] Classification - [place]ancilla Grade 2 Grading (Diabetic Ulcer) [] Classification - [place]anc[place] Grade 3 Grading (Diabetic Ulcer) Diabetes - Detail Diabetes Diabetes Type II Left Extremity Ulcer, Other part of Foot Treatment Plan MARTITA (Atmospheric Absolute) 2 Number of Minutes 90 Number of Air Breaks 2
--- NOTE | 2020-06-12 10:07 | WC ---
Patient unable to complete HBO therapy treatment today. C/O having pain in right ear yesterday. Blood sugar at 0815 was 305. Examined per Ruth Grace NP. Unable to visualize right eardrum. She Instructed patient to be seen at Dr. Wilcox [facility] before proceeding with any HBO treatments. Called Dr. Wilcox office. Scheduled patient to be seen at 1300 today. Patient voiced understanding.
[2020-06-13 08:10] LABS: Bedside Glucose 156 mg/dL (70-110)
[2020-06-13 10:26] LABS: Bedside Glucose 135 mg/dL (70-110)
[2020-06-13 12:06] VITALS: BP 156/76; BP 158/63; PULSE 76; PULSE 94; RESP 16; RESP 18; TEMP 35.8; TEMP 36.6
--- NOTE | 2020-06-13 12:14 | PCM.HBO.PN ---
History of Present Illness Date of Service: 06/13/20 Presenting Chief Complaint: Diabetic left foot ulceration, Mancilla Grade 3, with infection GEN SIM is a 65 year old currently undergoing hyperbaric oxygen therapy for diabetic left foot infection, Mancilla grade 3. Progress: Today's session represents the 27th session of hyperbaric oxygen therapy, of an expected 30 such treatments. Tolerance of hyperbaric oxygen therapy: Hyperbaric oxygen therapy was administered as per the facility's protocol. Hyperbaric oxygen therapy was administered for 90 minutes at 2 silas, with two 5-minute air breaks. The patient tolerated hyperbaric oxygen therapy well, without complaints or complications. Upon emergence from the hyperbaric chamber, the patient's vital signs remained stable. The patient was discharged in good condition. His pre-and post- HBO blood sugars are documented elsewhere. Past Medical History Chronic Problems (Last Reviewed 04/24/20 @ 15:[address] 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) Tobacco abuse counseling (Chronic) Mixed hyperlipidemia (Chronic) Benign essential hypertension (Chronic) 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) Diabetes (Chronic) Type 2 diabetes mellitus (Chronic) Obstructive sleep apnea (Chronic) Uncontrolled diabetes mellitus (Chronic) Diabetic infection of left foot (Chronic) Osteomyelitis of great toe of left foot (Chronic) Morbid obesity due to excess calories (Chronic) Tobacco dependence due to cigarettes (Chronic) Diabetic neuropathy (Chronic) Hypertension (Chronic) 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) Allergies/Adverse Reactions: Allergies Sulfa (Sulfonamide Antibiotics) Allergy (Verified 05/24/20 10:13) Rash Home Medications: Ambulatory Orders Medication Instructions Recorded Calcium Carbonate [Calcium] 500 mg PO DAILY 06/23/17 Multivitamin [Multiple Vitamins] 1 ea PO DAILY 06/23/17 aspirin 81 mg tablet,delayed 81 mg PO DAILY 08/12/19 release atorvastatin 40 mg tablet 40 mg PO DAILY 10/18/19 bupropion HCl 150 mg 24 hr tablet, 150 mg PO BID tab 10/18/19 extended release lisinopril 10 mg tablet 10 mg PO DAILY 10/18/19 tamsulosin 0.4 mg capsule 0.4 mg PO DAILY@1730 cap 10/18/19 blood sugar diagnostic See Rx Instructions .ROUTE 10/28/19 .MEDSUPPLY #100 ea lancets 33 gauge See Rx Instructions .ROUTE 10/28/19 .MEDSUPPLY #100 ea gabapentin 300 mg capsule 600 mg PO TIDCM cap 04/24/20 Smz/Tmp Ds [Bactrim Ds] 1 tab PO BID #20 tab 05/10/20 insulin regular hum U-500 conc 145 unit SC TID #27 ml 05/12/20 Levofloxacin 500 mg PO DAILY 4 Days #4 tab 06/11/20 Linezolid 600 MG [Zyvox 600mg IVPB] 600 mg PO Q12 4 Days #8 tab 06/11/20 Maternal Family History: Family History (Last Reviewed 04/24/20 @ 15:[address] Juan Arteaga MD) Father Myocardial infarction Heart disease Mother Kidney disease Diabetes Sister Asthma Breast cancer Hypertension Brother Alcoholism Melanoma Family History: Diabetes, Renal Disease - on dialysis Paternal Family History: Family History (Last Reviewed 04/24/20 @ 15:[address] Juan Arteaga MD) Father Myocardial infarction Heart disease Mother Kidney disease Diabetes Sister Asthma Breast cancer Hypertension Brother Alcoholism Melanoma Family History: Heart Disease Sibling Family History: Family History (Last Reviewed 04/24/20 @ 15:[address] Juan Arteaga MD) Father Myocardial infarction Heart disease Mother Kidney disease Diabetes Sister Asthma Breast cancer Hypertension Brother Alcoholism Melanoma Family History: Cancer - breast cancer in his sister Smoking Status: Heavy Smoker (>10/day) Physical Exam Vital Signs Temp Pulse Resp BP 97.8 F 76 18 156/76 H 06/13/20 12:06 06/13/20 12:06 06/13/20 12:06 06/13/20 12:06 General: Alert, Oriented x3, Cooperative, No apparent distress, Well developed, Well nourished HEENT: Atraumatic, PERRLA, EOMI, Normocephalic Lungs: Normal air movement Psych/Mental Status: Normal Affect, Appropriate, Alert and oriented to time, place, person, mood and affect Assessment/Plan Active Problems (Last Reviewed 04/24/20 @ 15:[address] 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 (Chronic) History of transmetatarsal amputation of left foot (Chronic) Ulcer of right foot with fat layer exposed (Acute) Type 2 diabetes mellitus with diabetic polyneuropathy (Chronic) The patient appears to be tolerating hyperbaric oxygen therapy well, which will be continued as per the patient's medical plan. Treatment Course Number Number of HBO Treatments 30 Ordered Treatment Course Number 1 Treatment # 27 Chamber # 2 Chamber Type Monoplace HBO Diagnosis/Indication Diagnosis/Indication(s) for Left Diabetic Foot Ulcer Hyperbaric Therapy Classification - Mancilla Grade 2 Grading (Diabetic Ulcer) [] Classification - [place] Grade 2 Grading (Diabetic Ulcer) [] Classification - [place] Grade 3 Grading (Diabetic Ulcer) Diabetes - Detail Diabetes Diabetes Type II Left Extremity Ulcer, Other part of Foot Treatment Plan MARTITA (Atmospheric Absolute) 2.0 Number of Minutes 90 Number of Air Breaks 2
[2020-06-14 15:06] VITALS: BP 144/92; PULSE 93; RESP 18; TEMP 36.7; BMI 42.8
--- NOTE | 2020-06-14 15:23 | PCM.PN.ID ---
Patient Problems: Active and Suspected Problems (Last Reviewed 04/24/20 @ 15:[address] Juan Arteaga MD) Ulcer of right foot with fat layer exposed (Acute) Subjective: Feeling better, leg less sore and red. No fever. No n/v/d. - Physical Exam Vitals/I&O's: Vital Signs Temp Pulse Resp BP 97.8 F 76 18 156/76 H 06/13/20 12:06 06/13/20 12:06 06/13/20 12:06 06/13/20 12:06 Oxygen Delivery Method Room Air Body Mass Index (BMI) 42.8 Finger Stick Blood Glucose 137 General: Alert, Cooperative, No apparent distress Lungs: Clear to auscultation, Normal air movement Cardiovascular: Regular rate, Regular Rhythm Abdomen: Soft, Non Tender, Non-Distended Skin: Ulcer/ Wound - R lateral foot ulcer Microbiology Past 72 Hours 06/07/20 14:19 Wound Abcess - Right Foot Gram Stain - Final 06/07/20 14:19 Wound Abcess - Right Foot Wound Culture - Final Meth. resistant Staph. aureus Enterococcus faecalis Klebsiella pneumoniae sp pneum Streptococcus mitis/ oralis Corynebacterium minutissimum 06/07/20 14:19 Wound Abcess - Right Foot Anaerobic Culture - Final No anaerobic bacteria isolated. Medical Necessity - Tobacco Use Smoking Status: Heavy Smoker (>10/day) Route of nutrition/ use of supplements: [] Nutritional Intake: [] IV Site: [] Dyer Catheter: [] - Assessment/Plan Antibiotics: [] Assessment/Plan: [] Active and Suspected Problems (Last Reviewed 04/24/20 @ 15:[address] Juan Arteaga MD) Ulcer of right foot with fat layer exposed (Acute) Infected R lateral foot ulcer - recent wound cx with MRSA, e faecalis, klebs, strep, corynebacteria. Day 3 of linezolid and levaquin, sx improving, tolerating well. Will write for another week's worth. Will follow as needed.
--- NOTE | 2020-06-14 16:09 | PCM.WC.PN ---
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 Current Visit: Yes Code(s): L97.523 - Non-pressure chronic ulcer of other part of left foot with necrosis of muscle (2) Type 2 diabetes mellitus with diabetic polyneuropathy Status: Chronic Current Visit: Yes Qualifiers: Code(s): E11.42 - Type 2 diabetes mellitus with diabetic polyneuropathy (3) Osteomyelitis of left foot Status: Resolved Current Visit: Yes Code(s): M86.9 - Osteomyelitis, unspecified (4) History of transmetatarsal amputation of left foot Status: Chronic Current Visit: Yes Code(s): Z89.432 - Acquired absence of left foot (5) MRSA (methicillin resistant staph aureus) culture positive Status: Chronic Current Visit: Yes Code(s): Z22.322 - Carrier or suspected carrier of Methicillin resistant Staphylococcus aureus (6) Ulcer of right foot with fat layer exposed Status: Acute Current Visit: Yes Code(s): L97.512 - Non-pressure chronic ulcer of other part of right foot with fat layer exposed (7) Cellulitis of right foot Status: Acute Current Visit: Yes Code(s): L03.115 - Cellulitis of right lower limb Type of Wound Date of Service: 06/14/20 Chief Complaint: Diabetic left foot ulceration, [place] Grade 3, with infection History of Wound: This 65-year-old male with multiple comorbidities was seen today for left foot ulcer. His left foot ulcer onset was 12-07-2019. He is previously known to me and had a left transmetatarsal amputation performed previously. That has since been healed. He had a total contact cast applied last week and kept this clean, dry, and intact. He denies diarrhea, rash, fever, chill, nausea, vomiting. He also continues hyperbaric oxygen therapy. Progress of Wound: Improving left. multiple new ulcers right lower extremity, stabilizing - Physical Exam Vital Signs Temp Pulse Resp BP 98.1 F 93 18 144/92 H 06/14/20 15:06 06/14/20 15:06 06/14/20 15:06 06/14/20 15:06 General: Alert, Oriented x3, Cooperative, No apparent distress HEENT: Atraumatic Extremities: No cyanosis, Capillary Refill Less than 3 Seconds, No Calf Tenderness, Diminished Peripheral Pulses, Edema Skin: Ulcer/ Wound - No purulence, erythema, streaking, odor, deep tissue exposure, necrosis, maceration bilateral lower extremities. Maria M-ulcer inflammation and infection sites are resolving bilateral lower extremities. The maria m-ulcer skin is also atrophic and hairless. There is no longer any exposed tendon on the left foot. There is a tunnel at the 5:00 location of the right sub-fifth metatarsal head ulcer site without direct probe to bone and this extends proximally Wound Measurements and Assessment WC - Nurse 1 - General Ulcer Measurement Start: 05/24/20 09:49 Freq: Status: Active Protocol: Activity Type Activity Date Activity User E-Sign Co-Sign Detail Recorded Client Recorded Date Recorded By Document 06/14/20 15:06 [facility] [id number] 06/14/20 15:27 [facility] 06/14/20 15:06 Wound Center Nurse 1 [Ulcer Assessment] #9 right lateral plantar -Current Size (cm) - Length 1.4 -Current Size (cm) - Width 2.4 -Current Size (cm) - Depth 0.4 -Total Square Cm 3.36 -Tunneling No -Undermining/Tunneling No -Circular Undermining No -Exudate Amt Small -Exudate Type Serosanguineous -Wound Margin Flat & Intact -Granulation Amt Large (67-100%) -Granulation Quality Red -Slough/Fibrin Yes -Necrosis Amt Medium (34-66%) -Necrotic Tissue Type Adherent Slough -Structure Exposed N/A -Texture (Maria M-wound Skin Appearance) Assessed,Callus -Moisture (Maria M-wound Skin Appearance Assessed ) -Color (Maria M-wound Skin Appearance) Assessed -Temperature (Maria M-wound Skin No Abnormality Appearance) (Pt Warm) -Tenderness on Palpation (Maria M-wound No Skin Appearance) -Ulcer Cleansing Wound Cleanser -Foul Odor after Cleansing No -Anesthetic Used 4% Lidocaine Solution #8 right 3rd toe -Combined with other wound No -Current Size (cm) - Length 0.1 -Current Size (cm) - Width 0.1 -Current Size (cm) - Depth 0.1 -Total Square Cm 0.01 -Tunneling No -Undermining/Tunneling No -Circular Undermining No -Exudate Amt None Present -Wound Margin Flat & Intact -Granulation Amt Medium (34-66%) -Granulation Quality [place] -Slough/Fibrin Yes -Necrosis Amt Small (1-33%) -Necrotic Tissue Type Adherent Slough -Structure Exposed N/A -Texture (Maria M-wound Skin Appearance) Assessed -Moisture (Maria M-wound Skin Appearance Assessed ) -Color (Maria M-wound Skin Appearance) Assessed -Temperature (Maria M-wound Skin No Abnormality Appearance) (Pt Warm) -Tenderness on Palpation (Maria M-wound No Skin Appearance) -Ulcer Cleansing Wound Cleanser -Foul Odor after Cleansing No -Anesthetic Used 4% Lidocaine Solution #7 right 2nd toe -Combined with other wound No -Current Size (cm) - Length 1.4 -Current Size (cm) - Width 0.6 -Current Size (cm) - Depth 0.2 -Total Square Cm 0.84 -Tunneling No -Undermining/Tunneling No -Circular Undermining No -Exudate Amt None Present -Wound Margin Flat & Intact -Granulation Amt Medium (34-66%) -Slough/Fibrin Yes -Necrosis Amt Medium (34-66%) -Necrotic Tissue Type Adherent Slough -Structure Exposed N/A -Texture (Maria M-wound Skin Appearance) Assessed -Moisture (Maria M-wound Skin Appearance Assessed ) -Color (Maria M-wound Skin Appearance) Assessed -Temperature (Maria M-wound Skin No Abnormality Appearance) (Pt Warm) -Tenderness on Palpation (Maria M-wound No Skin Appearance) -Ulcer Cleansing Rinsed/ Irrigated with Saline -Foul Odor after Cleansing No -Anesthetic Used 4% Lidocaine Solution #6 right lateral base great toe -Combined with other wound No -Current Size (cm) - Length 0.1 -Current Size (cm) - Width 0.1 -Current Size (cm) - Depth 0.1 -Total Square Cm 0.01 -Tunneling No -Undermining/Tunneling No -Circular Undermining No -Exudate Amt Small -Exudate Type Serosanguineous -Wound Margin Flat & Intact -Granulation Amt Medium (34-66%) -Granulation Quality [place] -Slough/Fibrin Yes -Necrosis Amt Medium (34-66%) -Necrotic Tissue Type Adherent Slough -Structure Exposed N/A -Texture (Maria M-wound Skin Appearance) Assessed -Moisture (Maria M-wound Skin Appearance Assessed ) -Color (Maria M-wound Skin Appearance) Assessed -Temperature (Maria M-wound Skin No Abnormality Appearance) (Pt Warm) -Tenderness on Palpation (Maria M-wound No Skin Appearance) -Ulcer Cleansing Wound Cleanser -Foul Odor after Cleansing No -Anesthetic Used 4% Lidocaine Solution #5 right great toe cluster -Combined with other wound No -Current Size (cm) - Length 0.1 -Current Size (cm) - Width 0.1 -Current Size (cm) - Depth 0.1 -Total Square Cm 0.01 -Tunneling No -Undermining/Tunneling No -Circular Undermining No -Exudate Amt Small -Exudate Type Serosanguineous -Wound Margin Flat & Intact -Granulation Amt Medium (34-66%) -Granulation Quality [place] -Slough/Fibrin Yes -Necrosis Amt Small (1-33%) -Necrotic Tissue Type Adherent Slough -Structure Exposed N/A -Texture (Maria M-wound Skin Appearance) Assessed -Moisture (Maria M-wound Skin Appearance Assessed ) -Color (Maria M-wound Skin Appearance) Assessed -Temperature (Maria M-wound Skin No Abnormality Appearance) (Pt Warm) -Tenderness on Palpation (Maria M-wound No Skin Appearance) -Ulcer Cleansing Wound Cleanser -Foul Odor after Cleansing No -Anesthetic Used 4% Lidocaine Solution #4 right medial dorsal cluster -Combined with other wound No -Current Size (cm) - Length 0.1 -Current Size (cm) - Width 0.1 -Current Size (cm) - Depth 0.1 -Total Square Cm 0.01 -Tunneling No -Undermining/Tunneling No -Circular Undermining No -Exudate Amt Small -Exudate Type Serosanguineous -Wound Margin Flat & Intact -Granulation Amt Medium (34-66%) -Granulation Quality [place] -Slough/Fibrin Yes -Necrosis Amt Small (1-33%) -Necrotic Tissue Type Adherent Slough -Structure Exposed N/A -Texture (Maria M-wound Skin Appearance) Assessed -Moisture (Maria M-wound Skin Appearance Assessed ) -Color (Maria M-wound Skin Appearance) Assessed -Temperature (Maria M-wound Skin No Abnormality Appearance) (Pt Warm) -Tenderness on Palpation (Maria M-wound No Skin Appearance) -Ulcer Cleansing Wound Cleanser -Foul Odor after Cleansing No -Anesthetic Used 4% Lidocaine Solution #3 right medial ankle -Combined with other wound No -Current Size (cm) - Length 3.3 -Current Size (cm) - Width 2.1 -Current Size (cm) - Depth 0.2 -Total Square Cm 6.93 -Tunneling No -Undermining/Tunneling No -Exudate Amt Small -Exudate Type Serosanguineous -Wound Margin Flat & Intact -Granulation Amt Medium (34-66%) -Granulation Quality [place] -Slough/Fibrin Yes -Necrosis Amt Large (67-100%) -Necrotic Tissue Type Adherent Slough -Structure Exposed N/A -Texture (Maria M-wound Skin Appearance) Assessed -Moisture (Maria M-wound Skin Appearance Assessed ) -Color (Maria M-wound Skin Appearance) Assessed -Temperature (Maria M-wound Skin No Abnormality Appearance) (Pt Warm) -Tenderness on Palpation (Maria M-wound No Skin Appearance) -Ulcer Cleansing Wound Cleanser -Foul Odor after Cleansing No -Anesthetic Used 4% Lidocaine Solution #1 Left Plantar medial -Current Size (cm) - Length 2.2 -Current Size (cm) - Width 1.9 -Current Size (cm) - Depth 0.6 -Total Square Cm 4.18 -Tunneling No -Undermining/Tunneling No -Circular Undermining No -Exudate Amt Medium -Exudate Type Serosanguineous -Wound Margin Thickened -Granulation Amt Medium (34-66%) -Granulation Quality [place] -Slough/Fibrin Yes -Necrosis Amt Medium (34-66%) -Necrotic Tissue Type Adherent Slough -Structure Exposed N/A -Texture (Maria M-wound Skin Appearance) Assessed,Callus -Moisture (Maria M-wound Skin Appearance Assessed ) -Color (Maria M-wound Skin Appearance) Assessed -Temperature (Maria M-wound Skin No Abnormality Appearance) (Pt Warm) -Tenderness on Palpation (Maria M-wound No Skin Appearance) -Ulcer Cleansing Wound Cleanser -Foul Odor after Cleansing No -Anesthetic Used 4% Lidocaine Solution [Edema Assessment] -Lower Limb Edema Present Yes -Right Calf (cm) 49 -Right Ankle (cm) 26.4 -Left Calf (cm) 44 -Left Ankle (cm) 27.4 WC - Nurse 2 - General Ulcer CM Notes Start: 05/24/20 09:49 Freq: Status: Active Protocol: Activity Type Activity Date Activity User E-Sign Co-Sign Detail Recorded Client Recorded Date Recorded By Document 06/14/20 15:45 [email or web address] [id number] 06/14/20 16:07 CASSY 06/14/20 15:45 Wound Center Nurse 2 [Procedure/Treatment] #9 right lateral plantar -Time 15:46 -Correct Patient Yes -Correct Side, Site, Position Yes -Correct Procedure Yes -Procedure Performed Yes -Type of Procedure Debridement -Clinical Debridement Subcutaneous -Tissue Removed Subcutaneous -Post Debridement (cm) - Length 1.5 -Post Debridement (cm) - Width 2.5 -Post Debridement (cm) - Depth 0.4 -Total Square (Post) (cm) 3.75 -Area of Debridement (cm) - Length 1.5 -Area of Debridement (cm) - Width 2.5 -Total Square (Area) (cm) 3.75 -Tunneling Yes -Tunneling Position (O'clock) 5 -Tunneling Distance (cm) 3.5 -Undermining/Tunneling No -Circular Undermining No -Wound/Ulcer Outcome Not Healed -Ulcer Cleansing Rinsed/ Irrigated with Saline -Bioengineered Tissue No -Bleeding Controlled with Pressure -Offloading Yes -Type of Offloading Surgical Shoe -Treatment Response Procedure Tolerated Well -Debridement - Subq, 1st 20sq cm Yes #8 right 3rd toe -Time 16:00 -Correct Patient Yes -Correct Side, Site, Position Yes -Correct Procedure Yes -Procedure Performed Yes -Type of Procedure Debridement -Clinical Debridement Subcutaneous -Tissue Removed Subcutaneous -Post Debridement (cm) - Length 0.3 -Post Debridement (cm) - Width 0.2 -Post Debridement (cm) - Depth 0.1 -Total Square (Post) (cm) 0.06 -Area of Debridement (cm) - Length 0.3 -Area of Debridement (cm) - Width 0.2 -Total Square (Area) (cm) 0.06 -Tunneling No -Undermining/Tunneling No -Circular Undermining No -Wound/Ulcer Outcome Not Healed -Ulcer Cleansing Rinsed/ Irrigated with Saline -Foul Odor after Cleansing No -Bioengineered Tissue No -Bleeding Controlled with Pressure -Offloading Yes -Type of Offloading Surgical Shoe -Treatment Response Procedure Tolerated Well -Debridement - Subq, 1st 20sq cm No #7 right 2nd toe -Time 16:00 -Correct Patient Yes -Correct Side, Site, Position Yes -Correct Procedure Yes -Procedure Performed Yes -Type of Procedure Debridement -Clinical Debridement Subcutaneous -Tissue Removed Subcutaneous -Post Debridement (cm) - Length 1.5 -Post Debridement (cm) - Width 0.6 -Post Debridement (cm) - Depth 0.2 -Total Square (Post) (cm) 0.90 -Area of Debridement (cm) - Length 1.5 -Area of Debridement (cm) - Width 0.6 -Total Square (Area) (cm) 0.90 -Tunneling No -Undermining/Tunneling No -Circular Undermining No -Wound/Ulcer Outcome Not Healed -Ulcer Cleansing Rinsed/ Irrigated with Saline -Foul Odor after Cleansing No -Bioengineered Tissue No -Bleeding Controlled with Pressure -Offloading Yes -Type of Offloading Surgical Shoe -Treatment Response Procedure Tolerated Well -Debridement - Subq, 1st 20sq cm No #6 right lateral base great toe -Time 16:01 -Correct Patient Yes -Correct Side, Site, Position Yes -Correct Procedure Yes -Procedure Performed Yes -Type of Procedure Debridement -Clinical Debridement Subcutaneous -Tissue Removed Subcutaneous -Post Debridement (cm) - Length 0.2 -Post Debridement (cm) - Width 0.2 -Post Debridement (cm) - Depth 0.1 -Total Square (Post) (cm) 0.04 -Area of Debridement (cm) - Length 0.2 -Area of Debridement (cm) - Width 0.2 -Total Square (Area) (cm) 0.04 -Tunneling No -Undermining/Tunneling No -Circular Undermining No -Wound/Ulcer Outcome Not Healed -Ulcer Cleansing Rinsed/ Irrigated with Saline -Foul Odor after Cleansing No -Bioengineered Tissue No -Bleeding Controlled with Pressure -Offloading No -Treatment Response Procedure Tolerated Well -Debridement - Subq, 1st 20sq cm No #5 right great toe cluster -Time 16:02 -Correct Patient Yes -Correct Side, Site, Position Yes -Correct Procedure Yes -Procedure Performed Yes -Type of Procedure Debridement -Clinical Debridement Subcutaneous -Tissue Removed Subcutaneous -Post Debridement (cm) - Length 0.3 -Post Debridement (cm) - Width 0.3 -Post Debridement (cm) - Depth 0.1 -Total Square (Post) (cm) 0.09 -Area of Debridement (cm) - Length 0.3 -Area of Debridement (cm) - Width 0.3 -Total Square (Area) (cm) 0.09 -Tunneling No -Undermining/Tunneling No -Circular Undermining No -Wound/Ulcer Outcome Not Healed -Ulcer Cleansing Rinsed/ Irrigated with Saline -Foul Odor after Cleansing No -Bioengineered Tissue No -Bleeding Controlled with Pressure -Offloading No -Treatment Response Procedure Tolerated Well -Debridement - Subq, 1st 20sq cm No #4 right medial dorsal cluster -Time 16:02 -Correct Patient Yes -Correct Side, Site, Position Yes -Correct Procedure Yes -Procedure Performed Yes -Type of Procedure Debridement -Clinical Debridement Subcutaneous -Tissue Removed Subcutaneous -Post Debridement (cm) - Length 0.3 -Post Debridement (cm) - Width 0.4 -Post Debridement (cm) - Depth 0.2 -Total Square (Post) (cm) 0.12 -Area of Debridement (cm) - Length 0.3 -Area of Debridement (cm) - Width 0.4 -Total Square (Area) (cm) 0.12 -Tunneling No -Undermining/Tunneling No -Circular Undermining No -Wound/Ulcer Outcome Not Healed -Ulcer Cleansing Rinsed/ Irrigated with Saline -Foul Odor after Cleansing No -Bioengineered Tissue No -Bleeding Controlled with Pressure -Offloading No -Treatment Response Procedure Tolerated Well -Debridement - Subq, 1st 20sq cm No #3 right medial ankle -Time 16:03 -Correct Patient Yes -Correct Side, Site, Position Yes -Correct Procedure Yes -Procedure Performed Yes -Type of Procedure Debridement -Clinical Debridement Subcutaneous -Tissue Removed Subcutaneous -Post Debridement (cm) - Length 3.3 -Post Debridement (cm) - Width 2.2 -Post Debridement (cm) - Depth 0.2 -Total Square (Post) (cm) 7.26 -Area of Debridement (cm) - Length 3.3 -Area of Debridement (cm) - Width 2.2 -Total Square (Area) (cm) 7.26 -Tunneling No -Undermining/Tunneling No -Circular Undermining No -Wound/Ulcer Outcome Not Healed -Ulcer Cleansing Rinsed/ Irrigated with Saline -Foul Odor after Cleansing No -Bioengineered Tissue No -Bleeding Controlled with Pressure -Offloading Yes -Type of Offloading Surgical Shoe -Treatment Response Procedure Tolerated Well -Debridement - Subq, 1st 20sq cm No #1 Left Plantar medial -Time 16:04 -Correct Patient Yes -Correct Side, Site, Position Yes -Correct Procedure Yes -Procedure Performed Yes -Type of Procedure Debridement -Clinical Debridement Subcutaneous -Tissue Removed Subcutaneous -Post Debridement (cm) - Length 2.3 -Post Debridement (cm) - Width 2 -Post Debridement (cm) - Depth 0.6 -Total Square (Post) (cm) 4.6 -Area of Debridement (cm) - Length 2.3 -Area of Debridement (cm) - Width 2.0 -Total Square (Area) (cm) 4.60 -Tunneling No -Undermining/Tunneling No -Circular Undermining No -Wound/Ulcer Outcome Not Healed -Ulcer Cleansing Rinsed/ Irrigated with Saline -Foul Odor after Cleansing No -Bioengineered Tissue Yes -Type of Bioengineered Tissue Epifix 18mm Disc -Expiration Date 01/20/25 -Product Lot Number [id number] -Percent Used 100 -Saline Lot Number [id number] -Bleeding Controlled with Pressure -Offloading Yes -Type of Offloading Total Contact Cast (TCC) - Left ($) -Debridement - Subq, 1st 20sq cm No -Apply Skin Sub - 1st 25 sq cm - Feet 1 -Epifix (per sq cm) 4 -Epifix 18mm Disc 0 Query Text:18mm = 3 [See Physician Procedure note for Specifics] Pain Scale: 0-10 Numeric [Pain] -Is Patient Pain Free? Yes - Nurse 3 - General Ulcer D/C NN Start: 05/24/20 09:49 Freq: Status: Active Protocol: Activity Type Activity Date Activity User E-Sign Co-Sign Detail Recorded Client Recorded Date Recorded By Document 06/13/20 12:06 [id number] 06/13/20 12:09 06/13/20 12:06 -Is Patient Pain Free? Yes - Visit Discharge [Visit Discharge Information] -Discharge Condition Stable -Ambulatory Status Ambulatory,Cane -Transportation Private Auto -Medication Reconcilliation completed Yes & provided to patient/care provider -Clinical Summary of Care Provided Yes Debridement Note Post-Debridement Measurements/Treatment - Nurse 2 - General Ulcer CM Notes Start: 05/24/20 09:49 Freq: Status: Active Protocol: Activity Type Activity Date Activity User E-Sign Co-Sign Detail Recorded Client Recorded Date Recorded By Document 05/24/20 10:23 [id number] 05/24/20 10:30 Document 05/31/20 11:30 [id number] 05/31/20 11:33 Document 06/07/20 12:40 [id number] 06/07/20 12:49 JF Document 06/14/20 15:45 JF [id number] 06/14/20 16:07 JF 05/24/20 05/31/20 06/07/20 10:23 11:30 12:40 Wound Center Nurse 2 #9 right lateral plantar -Time 12:41 -Correct Patient Yes -Correct Side, Site, Position Yes -Correct Procedure Yes -Procedure Performed Yes -Type of Procedure Debridement -Clinical Debridement Subcutaneous -Tissue Removed Subcutaneous -Post Debridement (cm) - Length 1.8 -Post Debridement (cm) - Width 2.3 -Post Debridement (cm) - Depth 0.5 -Total Square (Post) (cm) 4.14 -Area of Debridement (cm) - Length 1.8 -Area of Debridement (cm) - Width 2.3 -Total Square (Area) (cm) 4.14 -Tunneling No -Tunneling Position (O'clock) -Tunneling Distance (cm) -Undermining/Tunneling No -Circular Undermining No -Wound/Ulcer Outcome Not Healed -Ulcer Cleansing Rinsed/ Irrigated with Saline -Foul Odor after Cleansing No -Bioengineered Tissue No -Bleeding Controlled with Pressure -Offloading No -Type of Offloading -Treatment Response Procedure Tolerated Well -Debridement - Subq, 1st 20sq cm Yes #8 right 3rd toe -Time 12:43 -Correct Patient Yes -Correct Side, Site, Position Yes -Correct Procedure Yes -Procedure Performed Yes -Type of Procedure Debridement -Clinical Debridement Subcutaneous -Tissue Removed Subcutaneous -Post Debridement (cm) - Length 0.3 -Post Debridement (cm) - Width 0.4 -Post Debridement (cm) - Depth 0.2 -Total Square (Post) (cm) 0.12 -Area of Debridement (cm) - Length 0.3 -Area of Debridement (cm) - Width 0.4 -Total Square (Area) (cm) 0.12 -Tunneling No -Undermining/Tunneling No -Circular Undermining No -Wound/Ulcer Outcome Not Healed -Ulcer Cleansing Rinsed/ Irrigated with Saline -Foul Odor after Cleansing No -Bioengineered Tissue No -Bleeding Controlled with Pressure -Offloading Yes -Type of Offloading Surgical Shoe -Treatment Response Procedure Tolerated Well -Debridement - Subq, 1st 20sq cm No #7 right 2nd toe -Time 12:43 -Correct Patient Yes -Correct Side, Site, Position Yes -Correct Procedure Yes -Procedure Performed Yes -Type of Procedure Debridement -Clinical Debridement Subcutaneous -Tissue Removed Subcutaneous -Post Debridement (cm) - Length 2.3 -Post Debridement (cm) - Width 1.3 -Post Debridement (cm) - Depth 0.3 -Total Square (Post) (cm) 2.99 -Area of Debridement (cm) - Length 2.3 -Area of Debridement (cm) - Width 1.3 -Total Square (Area) (cm) 2.99 -Tunneling No -Undermining/Tunneling No -Circular Undermining No -Wound/Ulcer Outcome Not Healed -Ulcer Cleansing Rinsed/ Irrigated with Saline -Foul Odor after Cleansing No -Bioengineered Tissue No -Bleeding Controlled with Pressure -Offloading Yes -Type of Offloading Surgical Shoe -Treatment Response Procedure Tolerated Well -Debridement - Subq, 1st 20sq cm No #6 right lateral base great toe -Time 12:44 -Correct Patient Yes -Correct Side, Site, Position Yes -Correct Procedure Yes -Procedure Performed Yes -Type of Procedure Debridement -Clinical Debridement Subcutaneous -Tissue Removed Subcutaneous -Post Debridement (cm) - Length 0.2 -Post Debridement (cm) - Width 0.8 -Post Debridement (cm) - Depth 0.2 -Total Square (Post) (cm) 0.16 -Area of Debridement (cm) - Length 0.2 -Area of Debridement (cm) - Width 0.8 -Total Square (Area) (cm) 0.16 -Tunneling No -Undermining/Tunneling No -Circular Undermining No -Wound/Ulcer Outcome Not Healed -Ulcer Cleansing Rinsed/ Irrigated with Saline -Foul Odor after Cleansing No -Bioengineered Tissue No -Bleeding Controlled with Pressure -Offloading Yes -Type of Offloading Surgical Shoe -Treatment Response Procedure Tolerated Well -Debridement - Subq, 1st 20sq cm No #5 right great toe cluster -Time 12:44 -Correct Patient Yes -Correct Side, Site, Position Yes -Correct Procedure Yes -Procedure Performed Yes -Type of Procedure Debridement -Clinical Debridement Subcutaneous -Tissue Removed Subcutaneous -Post Debridement (cm) - Length 0.5 -Post Debridement (cm) - Width 2.4 -Post Debridement (cm) - Depth 0.3 -Total Square (Post) (cm) 1.20 -Area of Debridement (cm) - Length 0.5 -Area of Debridement (cm) - Width 2.4 -Total Square (Area) (cm) 1.20 -Tunneling No -Undermining/Tunneling No -Circular Undermining No -Wound/Ulcer Outcome Not Healed -Ulcer Cleansing Rinsed/ Irrigated with Saline -Foul Odor after Cleansing No -Bioengineered Tissue No -Bleeding Controlled with Pressure -Offloading Yes -Type of Offloading Surgical Shoe -Treatment Response Procedure Tolerated Well -Debridement - Subq, 1st 20sq cm No #4 right medial dorsal cluster -Time 12:45 -Correct Patient Yes -Correct Side, Site, Position Yes -Correct Procedure Yes -Procedure Performed Yes -Type of Procedure Debridement -Clinical Debridement Subcutaneous -Tissue Removed Subcutaneous -Post Debridement (cm) - Length 1.8 -Post Debridement (cm) - Width 1.2 -Post Debridement (cm) - Depth 0.2 -Total Square (Post) (cm) 2.16 -Area of Debridement (cm) - Length 1.8 -Area of Debridement (cm) - Width 1.2 -Total Square (Area) (cm) 2.16 -Tunneling No -Undermining/Tunneling No -Circular Undermining No -Wound/Ulcer Outcome Not Healed -Ulcer Cleansing Rinsed/ Irrigated with Saline -Foul Odor after Cleansing No -Bioengineered Tissue No -Bleeding Controlled with Pressure -Offloading Yes -Type of Offloading Surgical Shoe -Treatment Response Procedure Tolerated Well -Debridement - Subq, 1st 20sq cm No #3 right medial ankle -Time 12:46 -Correct Patient Yes -Correct Side, Site, Position Yes -Correct Procedure Yes -Procedure Performed Yes -Type of Procedure Debridement -Clinical Debridement Subcutaneous -Tissue Removed Subcutaneous -Post Debridement (cm) - Length 3.5 -Post Debridement (cm) - Width 2.4 -Post Debridement (cm) - Depth 0.2 -Total Square (Post) (cm) 8.40 -Area of Debridement (cm) - Length 3.5 -Area of Debridement (cm) - Width 2.4 -Total Square (Area) (cm) 8.40 -Tunneling No -Undermining/Tunneling No -Circular Undermining No -Wound/Ulcer Outcome Not Healed -Ulcer Cleansing Rinsed/ Irrigated with Saline -Foul Odor after Cleansing No -Bioengineered Tissue No -Bleeding Controlled with Pressure -Offloading Yes -Type of Offloading Surgical Shoe -Treatment Response Procedure Tolerated Well -Debridement - Subq, 1st 20sq cm No #1 Left Plantar medial -Time 10:23 11:31 12:46 -Correct Patient Yes Yes Yes -Correct Side, Site, Position Yes Yes Yes -Correct Procedure Yes Yes Yes -Procedure Performed Yes Yes Yes -Type of Procedure Debridement Debridement Debridement -Clinical Debridement Subcutaneous Subcutaneous Subcutaneous -Tissue Removed Subcutaneous Subcutaneous Subcutaneous -Post Debridement (cm) - Length 2.2 2.0 2.1 -Post Debridement (cm) - Width 2.2 2.0 2 -Post Debridement (cm) - Depth 0.3 0.6 0.3 -Total Square (Post) (cm) 4.84 4.00 4.2 -Area of Debridement (cm) - Length 2.2 2.0 2.1 -Area of Debridement (cm) - Width 2.2 2.0 2 -Total Square (Area) (cm) 4.84 4.00 4.2 -Tunneling No No No -Undermining/Tunneling No No No -Circular Undermining No No No -Wound/Ulcer Outcome Not Healed Not Healed Not Healed -Ulcer Cleansing Rinsed/ Rinsed/ Rinsed/ Irrigated with Irrigated with Irrigated with Saline Saline Saline -Foul Odor after Cleansing No No No -Bioengineered Tissue Yes Yes Yes -Type of Bioengineered Tissue Epifix Epifix 18mm Epifix Disc -Expiration Date 01/20/25 01/20/25 01/20/25 -Product Lot Number [id number] -Percent Used 100 100 100 -Saline Lot Number [id number] -Bleeding Controlled with Pressure Pressure Pressure -Offloading Yes Yes Yes -Type of Offloading Total Contact Total Contact Total Contact Cast (TCC) - Cast (TCC) - Cast (TCC) - Left ($) Left ($) Left ($) -Treatment Response Procedure Procedure Tolerated Well Tolerated Well -Debridement - Subq, 1st 20sq cm No No No -Apply Skin Sub - 1st 25 sq cm - Feet 1 1 1 -Epifix (per sq cm) 4 4 4 -Epifix 18mm Disc 0 Query Text:18mm = 3 Pain Scale: 0-10 Numeric Is Patient Pain Free? Yes Yes Yes 06/14/20 15:45 Wound Center Nurse 2 #9 right lateral plantar -Time 15:46 -Correct Patient Yes -Correct Side, Site, Position Yes -Correct Procedure Yes -Procedure Performed Yes -Type of Procedure Debridement -Clinical Debridement Subcutaneous -Tissue Removed Subcutaneous -Post Debridement (cm) - Length 1.5 -Post Debridement (cm) - Width 2.5 -Post Debridement (cm) - Depth 0.4 -Total Square (Post) (cm) 3.75 -Area of Debridement (cm) - Length 1.5 -Area of Debridement (cm) - Width 2.5 -Total Square (Area) (cm) 3.75 -Tunneling Yes -Tunneling Position (O'clock) 5 -Tunneling Distance (cm) 3.5 -Undermining/Tunneling No -Circular Undermining No -Wound/Ulcer Outcome Not Healed -Ulcer Cleansing Rinsed/ Irrigated with Saline -Foul Odor after Cleansing -Bioengineered Tissue No -Bleeding Controlled with Pressure -Offloading Yes -Type of Offloading Surgical Shoe -Treatment Response Procedure Tolerated Well -Debridement - Subq, 1st 20sq cm Yes #8 right 3rd toe -Time 16:00 -Correct Patient Yes -Correct Side, Site, Position Yes -Correct Procedure Yes -Procedure Performed Yes -Type of Procedure Debridement -Clinical Debridement Subcutaneous -Tissue Removed Subcutaneous -Post Debridement (cm) - Length 0.3 -Post Debridement (cm) - Width 0.2 -Post Debridement (cm) - Depth 0.1 -Total Square (Post) (cm) 0.06 -Area of Debridement (cm) - Length 0.3 -Area of Debridement (cm) - Width 0.2 -Total Square (Area) (cm) 0.06 -Tunneling No -Undermining/Tunneling No -Circular Undermining No -Wound/Ulcer Outcome Not Healed -Ulcer Cleansing Rinsed/ Irrigated with Saline -Foul Odor after Cleansing No -Bioengineered Tissue No -Bleeding Controlled with Pressure -Offloading Yes -Type of Offloading Surgical Shoe -Treatment Response Procedure Tolerated Well -Debridement - Subq, 1st 20sq cm No #7 right 2nd toe -Time 16:00 -Correct Patient Yes -Correct Side, Site, Position Yes -Correct Procedure Yes -Procedure Performed Yes -Type of Procedure Debridement -Clinical Debridement Subcutaneous -Tissue Removed Subcutaneous -Post Debridement (cm) - Length 1.5 -Post Debridement (cm) - Width 0.6 -Post Debridement (cm) - Depth 0.2 -Total Square (Post) (cm) 0.90 -Area of Debridement (cm) - Length 1.5 -Area of Debridement (cm) - Width 0.6 -Total Square (Area) (cm) 0.90 -Tunneling No -Undermining/Tunneling No -Circular Undermining No -Wound/Ulcer Outcome Not Healed -Ulcer Cleansing Rinsed/ Irrigated with Saline -Foul Odor after Cleansing No -Bioengineered Tissue No -Bleeding Controlled with Pressure -Offloading Yes -Type of Offloading Surgical Shoe -Treatment Response Procedure Tolerated Well -Debridement - Subq, 1st 20sq cm No #6 right lateral base great toe -Time 16:01 -Correct Patient Yes -Correct Side, Site, Position Yes -Correct Procedure Yes -Procedure Performed Yes -Type of Procedure Debridement -Clinical Debridement Subcutaneous -Tissue Removed Subcutaneous -Post Debridement (cm) - Length 0.2 -Post Debridement (cm) - Width 0.2 -Post Debridement (cm) - Depth 0.1 -Total Square (Post) (cm) 0.04 -Area of Debridement (cm) - Length 0.2 -Area of Debridement (cm) - Width 0.2 -Total Square (Area) (cm) 0.04 -Tunneling No -Undermining/Tunneling No -Circular Undermining No -Wound/Ulcer Outcome Not Healed -Ulcer Cleansing Rinsed/ Irrigated with Saline -Foul Odor after Cleansing No -Bioengineered Tissue No -Bleeding Controlled with Pressure -Offloading No -Type of Offloading -Treatment Response Procedure Tolerated Well -Debridement - Subq, 1st 20sq cm No #5 right great toe cluster -Time 16:02 -Correct Patient Yes -Correct Side, Site, Position Yes -Correct Procedure Yes -Procedure Performed Yes -Type of Procedure Debridement -Clinical Debridement Subcutaneous -Tissue Removed Subcutaneous -Post Debridement (cm) - Length 0.3 -Post Debridement (cm) - Width 0.3 -Post Debridement (cm) - Depth 0.1 -Total Square (Post) (cm) 0.09 -Area of Debridement (cm) - Length 0.3 -Area of Debridement (cm) - Width 0.3 -Total Square (Area) (cm) 0.09 -Tunneling No -Undermining/Tunneling No -Circular Undermining No -Wound/Ulcer Outcome Not Healed -Ulcer Cleansing Rinsed/ Irrigated with Saline -Foul Odor after Cleansing No -Bioengineered Tissue No -Bleeding Controlled with Pressure -Offloading No -Type of Offloading -Treatment Response Procedure Tolerated Well -Debridement - Subq, 1st 20sq cm No #4 right medial dorsal cluster -Time 16:02 -Correct Patient Yes -Correct Side, Site, Position Yes -Correct Procedure Yes -Procedure Performed Yes -Type of Procedure Debridement -Clinical Debridement Subcutaneous -Tissue Removed Subcutaneous -Post Debridement (cm) - Length 0.3 -Post Debridement (cm) - Width 0.4 -Post Debridement (cm) - Depth 0.2 -Total Square (Post) (cm) 0.12 -Area of Debridement (cm) - Length 0.3 -Area of Debridement (cm) - Width 0.4 -Total Square (Area) (cm) 0.12 -Tunneling No -Undermining/Tunneling No -Circular Undermining No -Wound/Ulcer Outcome Not Healed -Ulcer Cleansing Rinsed/ Irrigated with Saline -Foul Odor after Cleansing No -Bioengineered Tissue No -Bleeding Controlled with Pressure -Offloading No -Type of Offloading -Treatment Response Procedure Tolerated Well -Debridement - Subq, 1st 20sq cm No #3 right medial ankle -Time 16:03 -Correct Patient Yes -Correct Side, Site, Position Yes -Correct Procedure Yes -Procedure Performed Yes -Type of Procedure Debridement -Clinical Debridement Subcutaneous -Tissue Removed Subcutaneous -Post Debridement (cm) - Length 3.3 -Post Debridement (cm) - Width 2.2 -Post Debridement (cm) - Depth 0.2 -Total Square (Post) (cm) 7.26 -Area of Debridement (cm) - Length 3.3 -Area of Debridement (cm) - Width 2.2 -Total Square (Area) (cm) 7.26 -Tunneling No -Undermining/Tunneling No -Circular Undermining No -Wound/Ulcer Outcome Not Healed -Ulcer Cleansing Rinsed/ Irrigated with Saline -Foul Odor after Cleansing No -Bioengineered Tissue No -Bleeding Controlled with Pressure -Offloading Yes -Type of Offloading Surgical Shoe -Treatment Response Procedure Tolerated Well -Debridement - Subq, 1st 20sq cm No #1 Left Plantar medial -Time 16:04 -Correct Patient Yes -Correct Side, Site, Position Yes -Correct Procedure Yes -Procedure Performed Yes -Type of Procedure Debridement -Clinical Debridement Subcutaneous -Tissue Removed Subcutaneous -Post Debridement (cm) - Length 2.3 -Post Debridement (cm) - Width 2 -Post Debridement (cm) - Depth 0.6 -Total Square (Post) (cm) 4.6 -Area of Debridement (cm) - Length 2.3 -Area of Debridement (cm) - Width 2.0 -Total Square (Area) (cm) 4.60 -Tunneling No -Undermining/Tunneling No -Circular Undermining No -Wound/Ulcer Outcome Not Healed -Ulcer Cleansing Rinsed/ Irrigated with Saline -Foul Odor after Cleansing No -Bioengineered Tissue Yes -Type of Bioengineered Tissue Epifix 18mm Disc -Expiration Date 01/20/25 -Product Lot Number [id number] -Percent Used 100 -Saline Lot Number [id number] -Bleeding Controlled with Pressure -Offloading Yes -Type of Offloading Total Contact Cast (TCC) - Left ($) -Treatment Response -Debridement - Subq, 1st 20sq cm No -Apply Skin Sub - 1st 25 sq cm - Feet 1 -Epifix (per sq cm) 4 -Epifix 18mm Disc 0 Query Text:18mm = 3 Pain Scale: 0-10 Numeric Is Patient Pain Free? Yes - Nurse 3 - General Ulcer D/C NN Start: 05/24/20 09:49 Freq: Status: Active Protocol: Activity Type Activity Date Activity User E-Sign Co-Sign Detail Recorded Client Recorded Date Recorded By Document 05/24/20 10:47 [id number] 05/24/20 10:48 RB Document 05/30/20 12:22 [id number] 05/30/20 12:25 Document 05/31/20 11:52 RB [id number] 05/31/20 11:53 RB Document 06/06/20 11:08 [id number] 06/06/20 11:12 Document 06/09/20 11:08 [id number] 06/09/20 11:14 Document 06/13/20 12:06 [id number] 06/13/20 12:09 05/24/20 05/30/20 05/31/20 10:47 12:22 11:52 Wound Care Nurse 3 #1 Left Plantar medial -Other Dressing primary layer primary layer TCC TCC applied Left -Other primary layer TCC 3 inch Treatment Response Procedure Procedure Tolerated Well Tolerated Well Pain Scale: 0-10 Numeric Is Patient Pain Free? Yes Yes Yes Teaching: Wound Center Foot Care -Person Taught Patient -Teaching Method Discussion -Response to teaching Verbalize understanding WC - Visit Discharge Discharge Condition Stable Stable Stable Ambulatory Status Ambulatory Ambulatory,Cane Cane Transportation Private Auto Private Auto Private Auto Medication Reconcilliation completed & No Yes No provided to patient/care provider Clinical Summary of Care Provided Yes Yes Yes 06/06/20 06/09/20 06/13/20 11:08 11:08 12:06 Wound Care Nurse 3 #1 Left Plantar medial -Other Dressing Left -Other Treatment Response Pain Scale: 0-10 Numeric Is Patient Pain Free? Yes Yes Yes Teaching: Wound Center Foot Care -Person Taught -Teaching Method -Response to teaching WC - Visit Discharge Discharge Condition Stable Stable Stable Ambulatory Status Ambulatory Ambulatory Ambulatory,Cane Transportation Private Auto Private Auto Private Auto Medication Reconcilliation completed & Yes Yes Yes provided to patient/care provider Clinical Summary of Care Provided Yes Yes Yes Wound debrided: plantar foot Laterality: Left Wound Grade/Stage: grade 3 Type of Debridement: Excisional debridement Anesthesia Used: 5% Lidocaine Gel Depth: in the subcutaneous layer Percentage of wound debrided: 100 Instrument Used: #15 blade Tissue Removed: fibrous, devitalized subcutaneous, biofilm, slough Severity: Fat Layer Exposed Amount of bleeding with debridement: Mild Bleeding Controlled with: Pressure Patient tolerated procedure well - Additional Wound Wound debrided: sub 5th metatarsal head Laterality: Right Wound Grade/Stage: grade 1 Type of Debridement: Excisional debridement Anesthesia Used: 5% Lidocaine Gel Depth: in the subcutaneous layer Percentage of wound debrided: 100 Instrument Used: #15 blade Tissue Removed: fibrous, devitalized subcutaneous, biofilm, slough Severity: Fat Layer Exposed Amount of bleeding with debridement: Mild Bleeding Controlled with: Pressure Patient tolerated procedure: Patient tolerated procedure well - Additional Wound Wound debrided: medial lower leg, dorsal hallux, dorsal 2nd and 3rd toe, medial dorsal foot Laterality: Right Wound Grade/Stage: grade 1 Type of Debridement: Excisional debridement Anesthesia Used: 5% Lidocaine Gel Depth: in the subcutaneous layer Percentage of wound debrided: 100 Instrument Used: #15 blade Tissue Removed: fibrous, devitalized subcutaneous, biofilm, slough Severity: Fat Layer Exposed Amount of bleeding with debridement: Mild Bleeding Controlled with: Pressure Patient tolerated procedure: Patient tolerated procedure well Assessment/Plan Clinical Impression(s) from Imaging Studies Foot X-Ray 06/07/20 13:38 IMPRESSION: Soft tissue swelling and ulceration overlying the fifth metatarsophalangeal joint. No definite changes of osteomyelitis is seen. Electronically Signed: John Gibbons, at 13:56 EDT , Service support , Active Problems (Last Reviewed 04/24/20 @ 15:[address] 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 Multiple new right foot ulcers include plantar lateral, dorsal medial, medial ankle, dorsal hallux, second toe, and third toe. Cellulitis right foot. Morbid obesity. 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 Subcutaneous excisional debridement was performed as noted in the clinical panel to the left and right feet. His ulcer status has improved bilateral. There is no longer any tendon exposed today on the left foot. I would like to consider advanced wound healing product application, epi-fix, and verbal consent was obtained today. The benefits, indications, anticipated application, healing time management were reviewed. This was applied according standard protocol and further secured with a wound veil and Steri-Strips. He tolerated this well to the left foot. He did well with a total contact cast last week and there is been significant reduction in inflammation and callus formation. I recommend application today. Verbal consent was obtained and this was applied according to standard protocol in a neutral position well-padded manner to the left foot. He tolerated this well. He was advised to keep this clean, dry, and intact until follow-up next week. His right foot ulcer sites were also debrided as noted in the clinical panel. To change dressing daily with Aquacel Ag. To offload by heel weightbearing in a surgical shoe which was previously provided. I discussed other offloading techniques such as using a walker or a knee roller for the left limb. His noninvasive vascular studies were reviewed from which were normal and intervention was previously not recommended. I advised him to follow-up with all of Dr. Bonilla's recommendations to optimize his healing process. He has for help scheduling this because he has not been able to do this. He has recently been seen and intervention is planned for arterial optimization. An updated bilateral duplex was also recommended to help with planning. He had an updated left foot x-ray which did not demonstrate any new progressive osseous destruction, soft tissue emphysema, fracture, dislocation, or foreign body. I recommend that he sees infectious disease because he is very high risk and input is greatly appreciated. He had recent multi-organism culture (MRSA, E facealis, klebs, strep, corynebacterium) results and cellulitis clinical signs to the right foot. These have improved since he started linezolid and Levaquin over the weekend. An additional weeks course of antibiotics were provided. His right foot x-rays reviewed without any osseous destruction. 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 To continue with hyperbaric oxygen therapy which appears to be helping. I recommend continued course due to his positive response. This is medically necessary and he is responding well and making appropriate progress. It is noted his nutrition, vascular, and medical status is optimized. To continue to work on decreasing glucose levels. He has a history of hyperglycemia. To continue to follow-up with nutritional services. To continue to follow-up as advised. He is currently making adjustments with his eating habits. He also follows up with cooling machine operator, Dr. Arteaga who is working with him to reduce his hemoglobin A1c with medication and behavioral changes. Smoking cessation was discussed in detail and he was advised on the healing impairment associated with this. To continue with his smoking cessation program. I also recommend discontinuation of nicotine products for this also contributes to small vessel contraction. He has demonstrated appropriate stabilization from an ulcer standpoint with recent qualit I answered all of his questions today. To return to clinic in 1 week or call sooner if questions, concerns, or progressive worsening.
[2020-06-14 16:15] VITALS: RESP 16
--- NOTE | 2020-06-14 17:04 | WC ---
This was charted on wrong account on 05/26/2020: GEN SIM CONSTANCE Male : 1955 Emr# [id number] 05/26/20 10:57 - Wound Center by Kendal Haines Acct Num: [id number] : 1955 Patient Age: 65 Called and left a patient a message on his voicemail about his HBO start time for 05/30/2020 at 9-9:15 am. Advised that he eat breakfast prior to his treatment and to call in to confirm that he received this message. Initialized on 05/26/20 10:57 - END OF NOTE
--- NOTE | 2020-06-15 08:30 | PCM.HBO.PN ---
History of Present Illness Date of Service: 06/15/20 Presenting Chief Complaint: Diabetic left foot ulceration, Mancilla Grade 3, with infection GEN SIM is a 65 year old currently undergoing hyperbaric oxygen therapy for diabetic left foot infection, Mancilla grade 3. Progress: Today's session represents the 28th session of hyperbaric oxygen therapy, of an expected 30 such treatments. Tolerance of hyperbaric oxygen therapy: Hyperbaric oxygen therapy was administered as per the facility's protocol. Hyperbaric oxygen therapy was administered for 90 minutes at 2 silas, with two 5-minute air breaks. The patient tolerated hyperbaric oxygen therapy well, without complaints or complications. Upon emergence from the hyperbaric chamber, the patient's vital signs remained stable. The patient was discharged in good condition. His pre-and post- HBO blood sugars are documented elsewhere. Past Medical History Chronic Problems (Last Reviewed 04/24/20 @ 15:[address] 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) Tobacco abuse counseling (Chronic) Mixed hyperlipidemia (Chronic) Benign essential hypertension (Chronic) 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) Diabetes (Chronic) Type 2 diabetes mellitus (Chronic) Obstructive sleep apnea (Chronic) Uncontrolled diabetes mellitus (Chronic) Diabetic infection of left foot (Chronic) Osteomyelitis of great toe of left foot (Chronic) Morbid obesity due to excess calories (Chronic) Tobacco dependence due to cigarettes (Chronic) Diabetic neuropathy (Chronic) Hypertension (Chronic) 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) Allergies/Adverse Reactions: Allergies Sulfa (Sulfonamide Antibiotics) Allergy (Verified 05/24/20 10:13) Rash Home Medications: Ambulatory Orders Medication Instructions Recorded Calcium Carbonate [Calcium] 500 mg PO DAILY 06/23/17 Multivitamin [Multiple Vitamins] 1 ea PO DAILY 06/23/17 aspirin 81 mg tablet,delayed 81 mg PO DAILY 08/12/19 release atorvastatin 40 mg tablet 40 mg PO DAILY 10/18/19 bupropion HCl 150 mg 24 hr tablet, 150 mg PO BID tab 10/18/19 extended release lisinopril 10 mg tablet 10 mg PO DAILY 10/18/19 tamsulosin 0.4 mg capsule 0.4 mg PO DAILY@1730 cap 10/18/19 blood sugar diagnostic See Rx Instructions .ROUTE 10/28/19 .MEDSUPPLY #100 ea lancets 33 gauge See Rx Instructions .ROUTE 10/28/19 .MEDSUPPLY #100 ea gabapentin 300 mg capsule 600 mg PO TIDCM cap 04/24/20 insulin regular hum U-500 conc 145 unit SC TID #27 ml 05/12/20 Linezolid 600 mg PO DAILY #7 tab 06/14/20 levoFLOXacin tablet [Levaquin 500 mg PO DAILY #7 tab 06/14/20 tablet] Maternal Family History: Family History (Last Reviewed 04/24/20 @ 15:[address] Juan Arteaga MD) Father Myocardial infarction Heart disease Mother Kidney disease Diabetes Sister Asthma Breast cancer Hypertension Brother Alcoholism Melanoma Family History: Diabetes, Renal Disease - on dialysis Paternal Family History: Family History (Last Reviewed 04/24/20 @ 15:[address] Juan Arteaga MD) Father Myocardial infarction Heart disease Mother Kidney disease Diabetes Sister Asthma Breast cancer Hypertension Brother Alcoholism Melanoma Family History: Heart Disease Sibling Family History: Family History (Last Reviewed 04/24/20 @ 15:[address] Juan Arteaga MD) Father Myocardial infarction Heart disease Mother Kidney disease Diabetes Sister Asthma Breast cancer Hypertension Brother Alcoholism Melanoma Family History: Cancer - breast cancer in his sister Smoking Status: Heavy Smoker (>10/day) Physical Exam Vital Signs Temp Pulse Resp BP 98.1 F 93 16 144/92 H 06/14/20 15:06 06/14/20 15:06 06/14/20 16:15 06/14/20 15:06 General: Alert, Oriented x3, Cooperative, No apparent distress HEENT: Atraumatic, Normocephalic Lungs: Normal air movement Psych/Mental Status: Normal Affect Assessment/Plan Active Problems (Last Reviewed 04/24/20 @ 15:[address] 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 Treatment Course Number Number of HBO Treatments 30 Ordered Treatment Course Number 1 Treatment # 28 Chamber # 2 Chamber Type Monoplace HBO Diagnosis/Indication Diagnosis/Indication(s) for Left Diabetic Foot Ulcer Hyperbaric Therapy Classification - Mancilla Grade 2 Grading (Diabetic Ulcer) [#2 right 5th metatarsal] Classification - Mancilla Grade 2 Grading (Diabetic Ulcer) [#1 Left Plantar medial] Classification - Mancilla Grade 3 Grading (Diabetic Ulcer) Diabetes - Detail Diabetes Diabetes Type II Left Extremity Ulcer, Other part of Foot Treatment Plan MARTITA (Atmospheric Absolute) 2.0 Number of Minutes 90 Number of Air Breaks 2 HBO Supervision
[2020-06-15 08:31] LABS: Bedside Glucose 150 mg/dL (70-110)
[2020-06-15 08:53] VITALS: BP 137/72; BP 156/80; PULSE 100; PULSE 72; RESP 18; RESP 20; TEMP 35.9; TEMP 36.2
[2020-06-15 10:50] LABS: Bedside Glucose 132 mg/dL (70-110)
[2020-06-16 08:21] LABS: Bedside Glucose 174 mg/dL (70-110)
[2020-06-16 09:07] VITALS: BP 153/86; BP 179/85; PULSE 69; PULSE 80; RESP 18; TEMP 35.7; TEMP 35.8
[2020-06-16 11:35] LABS: Bedside Glucose 171 mg/dL (70-110)
--- NOTE | 2020-06-16 13:48 | PCM.HBO.PN ---
History of Present Illness Date of Service: 06/16/20 Presenting Chief Complaint: Diabetic left foot ulceration, [place]anc[place] Grade 3, with infection GEN SIM is a 65 year old currently undergoing hyperbaric oxygen therapy for diabetic left foot infection, Manc[place] grade 3. Progress: Today's session represents the 29th session of hyperbaric oxygen therapy, of an expected 30 such treatments. Tolerance of hyperbaric oxygen therapy: Hyperbaric oxygen therapy was administered as per the facility's protocol. Hyperbaric oxygen therapy was administered for 90 minutes at 2 silas, with two 5-minute air breaks. The patient tolerated hyperbaric oxygen therapy well, without complaints or complications. Upon emergence from the hyperbaric chamber, the patient's vital signs remained stable. The patient was discharged in good condition. His pre-and post- HBO blood sugars are documented elsewhere. Past Medical History Chronic Problems (Last Reviewed 04/24/20 @ 15:[address] 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) Tobacco abuse counseling (Chronic) Mixed hyperlipidemia (Chronic) Benign essential hypertension (Chronic) 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) Diabetes (Chronic) Type 2 diabetes mellitus (Chronic) Obstructive sleep apnea (Chronic) Uncontrolled diabetes mellitus (Chronic) Diabetic infection of left foot (Chronic) Osteomyelitis of great toe of left foot (Chronic) Morbid obesity due to excess calories (Chronic) Tobacco dependence due to cigarettes (Chronic) Diabetic neuropathy (Chronic) Hypertension (Chronic) 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) Allergies/Adverse Reactions: Allergies Sulfa (Sulfonamide Antibiotics) Allergy (Verified 05/24/20 10:13) Rash Home Medications: Ambulatory Orders Medication Instructions Recorded Calcium Carbonate [Calcium] 500 mg PO DAILY 06/23/17 Multivitamin [Multiple Vitamins] 1 ea PO DAILY 06/23/17 aspirin 81 mg tablet,delayed 81 mg PO DAILY 08/12/19 release atorvastatin 40 mg tablet 40 mg PO DAILY 10/18/19 bupropion HCl 150 mg 24 hr tablet, 150 mg PO BID tab 10/18/19 extended release lisinopril 10 mg tablet 10 mg PO DAILY 10/18/19 tamsulosin 0.4 mg capsule 0.4 mg PO DAILY@1730 cap 10/18/19 blood sugar diagnostic See Rx Instructions .ROUTE 10/28/19 .MEDSUPPLY #100 ea lancets 33 gauge See Rx Instructions .ROUTE 10/28/19 .MEDSUPPLY #100 ea gabapentin 300 mg capsule 600 mg PO TIDCM cap 04/24/20 insulin regular hum U-500 conc 145 unit SC TID #27 ml 05/12/20 Linezolid 600 mg PO DAILY #7 tab 06/14/20 levoFLOXacin tablet [Levaquin 500 mg PO DAILY #7 tab 06/14/20 tablet] Maternal Family History: Family History (Last Reviewed 04/24/20 @ 15:[address] Juan Arteaga MD) Father Myocardial infarction Heart disease Mother Kidney disease Diabetes Sister Asthma Breast cancer Hypertension Brother Alcoholism Melanoma Family History: Diabetes, Renal Disease - on dialysis Paternal Family History: Family History (Last Reviewed 04/24/20 @ 15:[address] Juan Arteaga MD) Father Myocardial infarction Heart disease Mother Kidney disease Diabetes Sister Asthma Breast cancer Hypertension Brother Alcoholism Melanoma Family History: Heart Disease Sibling Family History: Family History (Last Reviewed 04/24/20 @ 15:[address] Juan Arteaga MD) Father Myocardial infarction Heart disease Mother Kidney disease Diabetes Sister Asthma Breast cancer Hypertension Brother Alcoholism Melanoma Family History: Cancer - breast cancer in his sister Smoking Status: Heavy Smoker (>10/day) Tobacco Use: Cigarettes Physical Exam Vital Signs Temp Pulse Resp BP 96.3 F L 69 18 153/86 H 06/16/20 09:07 06/16/20 09:07 06/16/20 09:07 06/16/20 09:07 General: Alert, Oriented x3, Cooperative, No apparent distress Psych/Mental Status: Normal Affect, Appropriate Assessment/Plan Active Problems (Last Reviewed 04/24/20 @ 15:[address] 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) History of transmetatarsal amputation of left foot (Chronic) Ulcer of right foot with fat layer exposed (Acute) Cellulitis of right foot (Acute) Type 2 diabetes mellitus with diabetic polyneuropathy (Chronic) The patient appears to be tolerating hyperbaric oxygen therapy well, which will be continued as per the patient's medical plan. Treatment Course Number Number of HBO Treatments 30 Ordered Treatment Course Number 1 Treatment # 29 Chamber # [id number] Chamber Type Monoplace HBO Diagnosis/Indication Diagnosis/Indication(s) for Left Diabetic Foot Ulcer Hyperbaric Therapy Classification - [place] Grade 2 Grading (Diabetic Ulcer) [] Classification - [place] Grade 2 Grading (Diabetic Ulcer) [] Classification - [place] Grade 3 Grading (Diabetic Ulcer) Diabetes - Detail Diabetes Diabetes Type II Diabetes Control Uncontrolled Left Extremity Ulcer, Other part of Foot Treatment Plan MARTITA (Atmospheric Absolute) 2 Number of Minutes 90 Number of Air Breaks 2
[2020-06-19 08:45] LABS: Bedside Glucose 194 mg/dL (70-110)
--- NOTE | 2020-06-19 08:50 | PCM.HBO.PN ---
History of Present Illness Date of Service: 06/19/20 Presenting Chief Complaint: Diabetic left foot ulceration, [place] Grade 3, with infection GEN SIM is a 65 year old currently undergoing hyperbaric oxygen therapy for diabetic left foot infection, [place] grade 3. Progress: Today's session represents the 30th session of hyperbaric oxygen therapy, of an expected 30 such treatments. Tolerance of hyperbaric oxygen therapy: Hyperbaric oxygen therapy was administered as per the facility's protocol. Hyperbaric oxygen therapy was administered for 75 minutes at 2 silas, with two 5-minute air breaks. The treatment was stopped 15 minutes early due to the patient reporting nausea. He was diaphoretic upon emergence from the hyperbaric chamber. Nausea and diaphoresis subsided quickly. The patient's vital signs remained stable. The patient was discharged in good condition. His pre-and post- HBO blood sugars are documented elsewhere. Past Medical History Chronic Problems (Last Reviewed 04/24/20 @ 15:[address] 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) Tobacco abuse counseling (Chronic) Mixed hyperlipidemia (Chronic) Benign essential hypertension (Chronic) 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) Diabetes (Chronic) Type 2 diabetes mellitus (Chronic) Obstructive sleep apnea (Chronic) Uncontrolled diabetes mellitus (Chronic) Diabetic infection of left foot (Chronic) Osteomyelitis of great toe of left foot (Chronic) Morbid obesity due to excess calories (Chronic) Tobacco dependence due to cigarettes (Chronic) Diabetic neuropathy (Chronic) Hypertension (Chronic) 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) Allergies/Adverse Reactions: Allergies Sulfa (Sulfonamide Antibiotics) Allergy (Verified 05/24/20 10:13) Rash Home Medications: Ambulatory Orders Medication Instructions Recorded Calcium Carbonate [Calcium] 500 mg PO DAILY 06/23/17 Multivitamin [Multiple Vitamins] 1 ea PO DAILY 06/23/17 aspirin 81 mg tablet,delayed 81 mg PO DAILY 08/12/19 release atorvastatin 40 mg tablet 40 mg PO DAILY 10/18/19 bupropion HCl 150 mg 24 hr tablet, 150 mg PO BID tab 10/18/19 extended release lisinopril 10 mg tablet 10 mg PO DAILY 10/18/19 tamsulosin 0.4 mg capsule 0.4 mg PO DAILY@1730 cap 10/18/19 blood sugar diagnostic See Rx Instructions .ROUTE 10/28/19 .MEDSUPPLY #100 ea lancets 33 gauge See Rx Instructions .ROUTE 10/28/19 .MEDSUPPLY #100 ea gabapentin 300 mg capsule 600 mg PO TIDCM cap 04/24/20 insulin regular hum U-500 conc 145 unit SC TID #27 ml 05/12/20 Linezolid 600 mg PO DAILY #7 tab 06/14/20 levoFLOXacin tablet [Levaquin 500 mg PO DAILY #7 tab 06/14/20 tablet] Maternal Family History: Family History (Last Reviewed 04/24/20 @ 15:[address] Juan Arteaga MD) Father Myocardial infarction Heart disease Mother Kidney disease Diabetes Sister Asthma Breast cancer Hypertension Brother Alcoholism Melanoma Family History: Diabetes, Renal Disease - on dialysis Paternal Family History: Family History (Last Reviewed 04/24/20 @ 15:[address] Juan Arteaga MD) Father Myocardial infarction Heart disease Mother Kidney disease Diabetes Sister Asthma Breast cancer Hypertension Brother Alcoholism Melanoma Family History: Heart Disease Sibling Family History: Family History (Last Reviewed 04/24/20 @ 15:[address] Juan Arteaga MD) Father Myocardial infarction Heart disease Mother Kidney disease Diabetes Sister Asthma Breast cancer Hypertension Brother Alcoholism Melanoma Family History: Cancer - breast cancer in his sister Smoking Status: Heavy Smoker (>10/day) Tobacco Use: Cigarettes Physical Exam Vital Signs Temp Pulse Resp BP 96.3 F L 69 18 153/86 H 06/16/20 09:07 06/16/20 09:07 06/16/20 09:07 06/16/20 09:07 General: Alert, Oriented x3, Cooperative, No apparent distress HEENT: Atraumatic, TM's Clear Lungs: Clear to auscultation, Normal air movement Cardiovascular: Regular rate, Regular Rhythm Psych/Mental Status: Normal Affect, Appropriate, Alert and oriented to time, place, person, mood and affect Assessment/Plan Active Problems (Last Reviewed 04/24/20 @ 15:[address] 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) History of transmetatarsal amputation of left foot (Chronic) Ulcer of right foot with fat layer exposed (Acute) Cellulitis of right foot (Acute) Type 2 diabetes mellitus with diabetic polyneuropathy (Chronic) Treatment Course Number Number of HBO Treatments 30 Ordered Treatment Course Number 1 Treatment # 30 Chamber # [id number] Chamber Type Monoplace HBO Diagnosis/Indication Diagnosis/Indication(s) for Left Diabetic Foot Ulcer Hyperbaric Therapy Classification - [place] Grade 2 Grading (Diabetic Ulcer) [] Classification - [place] Grade 2 Grading (Diabetic Ulcer) [] Classification - [place] Grade 3 Grading (Diabetic Ulcer) Diabetes - Detail Diabetes Diabetes Type II Diabetes Control Uncontrolled Left Extremity Ulcer, Other part of Foot Treatment Plan MARTITA (Atmospheric Absolute) 2 Number of Minutes 90 Number of Air Breaks 2
[2020-06-19 09:12] VITALS: BP 156/77; PULSE 81; RESP 18; TEMP 35.8
[2020-06-19 10:40] LABS: Bedside Glucose 165 mg/dL (70-110)
[2020-06-21 08:15] LABS: Bedside Glucose 236 mg/dL (70-110)
[2020-06-21 10:20] LABS: Bedside Glucose 163 mg/dL (70-110)
[2020-06-21 10:34] VITALS: BP 149/74; PULSE 68; RESP 18; TEMP 36.4; BMI 42.8
--- NOTE | 2020-06-21 11:33 | PCM.HBO.PN ---
History of Present Illness Date of Service: 06/21/20 Presenting Chief Complaint: Diabetic left foot ulceration, [place] Grade 3, with infection GEN SIM is a 65 year old currently undergoing hyperbaric oxygen therapy for diabetic left foot infection, [place] grade 3. Progress: Today's session represents the 31st session of hyperbaric oxygen therapy, of an expected 30 such treatments. Tolerance of hyperbaric oxygen therapy: Hyperbaric oxygen therapy was administered as per the facility's protocol. Hyperbaric oxygen therapy was administered for 75 minutes at 2 silas, with two 5-minute air breaks. The treatment was stopped 15 minutes early due to the patient reporting nausea. He was diaphoretic upon emergence from the hyperbaric chamber. Nausea and diaphoresis subsided quickly. The patient's vital signs remained stable. The patient was discharged in good condition. His pre-and post- HBO blood sugars are documented elsewhere. Past Medical History Chronic Problems (Last Reviewed 04/24/20 @ 15:[address] 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) Tobacco abuse counseling (Chronic) Mixed hyperlipidemia (Chronic) Benign essential hypertension (Chronic) 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) Diabetes (Chronic) Type 2 diabetes mellitus (Chronic) Obstructive sleep apnea (Chronic) Uncontrolled diabetes mellitus (Chronic) Diabetic infection of left foot (Chronic) Osteomyelitis of great toe of left foot (Chronic) Morbid obesity due to excess calories (Chronic) Tobacco dependence due to cigarettes (Chronic) Diabetic neuropathy (Chronic) Hypertension (Chronic) 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) Allergies/Adverse Reactions: Allergies Sulfa (Sulfonamide Antibiotics) Allergy (Verified 05/24/20 10:13) Rash Home Medications: Ambulatory Orders Medication Instructions Recorded Calcium Carbonate [Calcium] 500 mg PO DAILY 06/23/17 Multivitamin [Multiple Vitamins] 1 ea PO DAILY 06/23/17 aspirin 81 mg tablet,delayed 81 mg PO DAILY 08/12/19 release atorvastatin 40 mg tablet 40 mg PO DAILY 10/18/19 bupropion HCl 150 mg 24 hr tablet, 150 mg PO BID tab 10/18/19 extended release lisinopril 10 mg tablet 10 mg PO DAILY 10/18/19 tamsulosin 0.4 mg capsule 0.4 mg PO DAILY@1730 cap 10/18/19 blood sugar diagnostic See Rx Instructions .ROUTE 10/28/19 .MEDSUPPLY #100 ea lancets 33 gauge See Rx Instructions .ROUTE 10/28/19 .MEDSUPPLY #100 ea gabapentin 300 mg capsule 600 mg PO TIDCM cap 04/24/20 insulin regular hum U-500 conc 145 unit SC TID #27 ml 05/12/20 Linezolid 600 mg PO DAILY #7 tab 06/14/20 levoFLOXacin tablet [Levaquin 500 mg PO DAILY #7 tab 06/14/20 tablet] Maternal Family History: Family History (Last Reviewed 04/24/20 @ 15:[address] Juan Arteaga MD) Father Myocardial infarction Heart disease Mother Kidney disease Diabetes Sister Asthma Breast cancer Hypertension Brother Alcoholism Melanoma Family History: Diabetes, Renal Disease - on dialysis Paternal Family History: Family History (Last Reviewed 04/24/20 @ 15:[address] Juan Arteaga MD) Father Myocardial infarction Heart disease Mother Kidney disease Diabetes Sister Asthma Breast cancer Hypertension Brother Alcoholism Melanoma Family History: Heart Disease Sibling Family History: Family History (Last Reviewed 04/24/20 @ 15:[address] Juan Arteaga MD) Father Myocardial infarction Heart disease Mother Kidney disease Diabetes Sister Asthma Breast cancer Hypertension Brother Alcoholism Melanoma Family History: Cancer - breast cancer in his sister Smoking Status: Heavy Smoker (>10/day) Tobacco Use: Cigarettes Physical Exam Vital Signs Temp Pulse Resp BP 97.6 F L 68 18 149/74 H 06/21/20 10:34 06/21/20 10:34 06/21/20 10:34 06/21/20 10:34 Assessment/Plan Active Problems (Last Reviewed 04/24/20 @ 15:[address] 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) History of transmetatarsal amputation of left foot (Chronic) Ulcer of right foot with fat layer exposed (Acute) Cellulitis of right foot (Acute) Type 2 diabetes mellitus with diabetic polyneuropathy (Chronic) The patient appears to be tolerating hyperbaric oxygen therapy well, which will be continued as per the patient's medical plan. Treatment Course Number Number of HBO Treatments 30 Ordered Treatment Course Number 1 Treatment # 30 Chamber # [id number] Chamber Type Monoplace HBO Diagnosis/Indication Diagnosis/Indication(s) for Left Diabetic Foot Ulcer Hyperbaric Therapy Classification - [place] Grade 2 Grading (Diabetic Ulcer) [#2 right 5th metatarsal] Classification - [place] Grade 2 Grading (Diabetic Ulcer) [#1 Left Plantar medial] Classification - [place] Grade 3 Grading (Diabetic Ulcer) Diabetes - Detail Diabetes Diabetes Type II Diabetes Control Uncontrolled Left Extremity Ulcer, Other part of Foot Treatment Plan MARTITA (Atmospheric Absolute) 2 Number of Minutes 90 Number of Air Breaks 2
[2020-06-21 11:36] VITALS: BP 165/94; PULSE 72; RESP 18
--- NOTE | 2020-06-21 13:27 | PN.PCM_ITS ---
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 Code(s): L97.523 - Non-pressure chronic ulcer of other part of left foot with necrosis of muscle (2) Type 2 diabetes mellitus with diabetic polyneuropathy Status: Chronic Qualifiers: Code(s): E11.42 - Type 2 diabetes mellitus with diabetic polyneuropathy (3) Osteomyelitis of left foot Status: Resolved Code(s): M86.9 - Osteomyelitis, unspecified (4) History of transmetatarsal amputation of left foot Status: Chronic Code(s): Z89.432 - Acquired absence of left foot (5) MRSA (methicillin resistant staph aureus) culture positive Status: Chronic Code(s): Z22.322 - Carrier or suspected carrier of Methicillin resistant Staphylococcus aureus (6) Ulcer of right foot with fat layer exposed Status: Chronic Code(s): L97.512 - Non-pressure chronic ulcer of other part of right foot with fat layer exposed (7) Cellulitis of right foot Status: Resolved Code(s): L03.115 - Cellulitis of right lower limb Type of Wound Date of Service: 06/21/20 Chief Complaint: Diabetic left foot ulceration, [place] Grade 3, with infection. Right foot ulcers with recent infection History of Wound: This 65-year-old male with multiple comorbidities was seen today for left foot ulcer. His left foot ulcer onset was 12-07-2019. He is previously known to me and had a left transmetatarsal amputation performed previously. That has since been healed. He had a total contact cast applied last week and kept this clean, dry, and intact. He denies diarrhea, rash, fever, chill, nausea, vomiting. He also continues hyperbaric oxygen therapy. He was also seen today for multiple right foot ulcers and he has been taking antibiotics as recommended by infectious disease. He relates his foot is doing better and he tries to offload. Progress of Wound: Improving left. Improving right foot ulcers with resolution of cellulitis - Physical Exam Vital Signs Temp Pulse Resp BP 97.6 F L 72 18 165/94 H 06/21/20 10:34 06/21/20 11:36 06/21/20 11:36 06/21/20 11:36 General: Alert, Oriented x3, Cooperative, No apparent distress HEENT: Atraumatic Extremities: No cyanosis, Capillary Refill Less than 3 Seconds, No Calf Tenderness, Diminished Peripheral Pulses, Edema Skin: Ulcer/ Wound - No purulence, erythema, streaking, odor, infection. Reduced depth to left foot ulcer with decreased callus formation noted. There is also reduced right maria m-ulcer inflammation without necrosis or maceration. Adjacent skin is hairless and atrophic Wound Measurements and Assessment WC - Nurse 1 - General Ulcer Measurement Start: 05/24/20 09:49 Freq: Status: Active Protocol: Activity Type Activity Date Activity User E-Sign Co-Sign Detail Recorded Client Recorded Date Recorded By Document 06/21/20 10:34 [facility] [id number] 06/21/20 10:53 [facility] 06/21/20 10:34 Wound Center Nurse 1 [Ulcer Assessment] #9 right lateral plantar -Combined with other wound No -Current Size (cm) - Length 1.8 -Current Size (cm) - Width 2.4 -Current Size (cm) - Depth 0.4 -Total Square Cm 4.32 -Photo Taken No -Epithelialization Small 1-33% -Tunneling No -Undermining/Tunneling No -Circular Undermining No -Exudate Amt Medium -Exudate Type Serosanguineous -Wound Margin Distinct, Outline Attached -Granulation Amt Medium (34-66%) -Granulation Quality Red -Slough/Fibrin Yes -Necrosis Amt Medium (34-66%) -Necrotic Tissue Type Adherent Slough -Texture (Maria M-wound Skin Appearance) Assessed,Callus ,Scarring -Moisture (Maria M-wound Skin Appearance Assessed,Dry/ ) Scaly -Color (Maria M-wound Skin Appearance) Assessed -Temperature (Maria M-wound Skin No Abnormality Appearance) (Pt Warm) -Tenderness on Palpation (Maria M-wound No Skin Appearance) -Ulcer Cleansing soapy water -Foul Odor after Cleansing No -Anesthetic Used 4% Lidocaine Solution #8 right 3rd toe -Combined with other wound No -Current Size (cm) - Length 0.1 -Current Size (cm) - Width 0.1 -Current Size (cm) - Depth 0.1 -Total Square Cm 0.01 -Epithelialization Large 67-100% -Exudate Amt None Present -Granulation Amt None Present (0 %) -Necrosis Amt Small (1-33%) -Necrotic Tissue Type Adherent Slough -Texture (Maria M-wound Skin Appearance) Assessed -Moisture (Maria M-wound Skin Appearance Assessed,Dry/ ) Scaly -Color (Maria M-wound Skin Appearance) Assessed -Temperature (Maria M-wound Skin No Abnormality Appearance) (Pt Warm) -Tenderness on Palpation (Maria M-wound No Skin Appearance) -Ulcer Cleansing soapy water -Foul Odor after Cleansing No -Anesthetic Used 4% Lidocaine Solution #7 right 2nd toe -Combined with other wound No -Current Size (cm) - Length 0.1 -Current Size (cm) - Width 0.1 -Current Size (cm) - Depth 0.1 -Total Square Cm 0.01 -Photo Taken No -Tunneling No -Undermining/Tunneling No -Circular Undermining No -Exudate Amt None Present -Granulation Amt None Present (0 %) -Slough/Fibrin Yes -Necrosis Amt Small (1-33%) -Necrotic Tissue Type Adherent Slough -Texture (Maria M-wound Skin Appearance) Assessed, Scarring -Moisture (Maria M-wound Skin Appearance Assessed ) -Color (Mari Am-wound Skin Appearance) Assessed -Temperature (Maria M-wound Skin No Abnormality Appearance) (Pt Warm) -Tenderness on Palpation (Maria M-wound No Skin Appearance) -Ulcer Cleansing soapy water -Foul Odor after Cleansing No -Anesthetic Used 4% Lidocaine Solution #6 right lateral base great toe -Combined with other wound No -Current Size (cm) - Length 0.1 -Current Size (cm) - Width 0.1 -Current Size (cm) - Depth 0.1 -Total Square Cm 0.01 -Photo Taken No -Epithelialization Large 67-100% -Tunneling No -Undermining/Tunneling No -Circular Undermining No -Exudate Amt None Present -Granulation Amt None Present (0 %) -Slough/Fibrin Yes -Necrosis Amt Small (1-33%) -Necrotic Tissue Type Adherent Slough -Texture (Maria M-wound Skin Appearance) Assessed, Scarring -Moisture (Maria M-wound Skin Appearance Assessed ) -Color (Maria M-wound Skin Appearance) Assessed -Temperature (Maria M-wound Skin No Abnormality Appearance) (Pt Warm) -Tenderness on Palpation (Maria M-wound No Skin Appearance) -Ulcer Cleansing soapy water -Foul Odor after Cleansing No -Anesthetic Used 4% Lidocaine Solution #5 right great toe cluster -Combined with other wound No -Current Size (cm) - Length 0.1 -Current Size (cm) - Width 0.1 -Current Size (cm) - Depth 0.1 -Total Square Cm 0.01 -Photo Taken No -Epithelialization Large 67-100% -Tunneling No -Undermining/Tunneling No -Circular Undermining No -Exudate Amt None Present -Granulation Amt None Present (0 %) -Slough/Fibrin Yes -Necrosis Amt Small (1-33%) -Necrotic Tissue Type Adherent Slough -Texture (Maria M-wound Skin Appearance) Assessed, Scarring -Moisture (Maria M-wound Skin Appearance Assessed ) -Color (Maria M-wound Skin Appearance) Assessed -Temperature (Maria M-wound Skin No Abnormality Appearance) (Pt Warm) -Tenderness on Palpation (Maria M-wound No Skin Appearance) -Ulcer Cleansing soapy water -Foul Odor after Cleansing No -Anesthetic Used 4% Lidocaine Solution #4 right medial dorsal cluster -Combined with other wound No -Current Size (cm) - Length 0.1 -Current Size (cm) - Width 0.1 -Current Size (cm) - Depth 0.1 -Total Square Cm 0.01 -Photo Taken No -Epithelialization Large 67-100% -Tunneling No -Undermining/Tunneling No -Circular Undermining No -Exudate Amt None Present -Granulation Amt None Present (0 %) -Slough/Fibrin Yes -Necrosis Amt Small (1-33%) -Necrotic Tissue Type Adherent Slough -Texture (Maria M-wound Skin Appearance) Assessed, Scarring -Moisture (Maria M-wound Skin Appearance Assessed ) -Color (Maria M-wound Skin Appearance) Assessed -Temperature (Maria M-wound Skin No Abnormality Appearance) (Pt Warm) -Tenderness on Palpation (Maria M-wound No Skin Appearance) -Ulcer Cleansing soapy water -Foul Odor after Cleansing No -Anesthetic Used 4% Lidocaine Solution #3 right medial ankle -Combined with other wound No -Current Size (cm) - Length 3 -Current Size (cm) - Width 1.5 -Current Size (cm) - Depth 0.2 -Total Square Cm 4.5 -Photo Taken No -Epithelialization None Present -Tunneling No -Undermining/Tunneling No -Circular Undermining No -Exudate Amt Medium -Exudate Type Serosanguineous -Wound Margin Thickened -Granulation Amt Medium (34-66%) -Granulation Quality Red -Slough/Fibrin Yes -Necrosis Amt Medium (34-66%) -Necrotic Tissue Type Adherent Slough -Texture (Maria M-wound Skin Appearance) Assessed, Scarring -Moisture (Maria M-wound Skin Appearance Assessed,Dry/ ) Scaly -Color (Maria M-wound Skin Appearance) Assessed -Temperature (Maria M-wound Skin No Abnormality Appearance) (Pt Warm) -Tenderness on Palpation (Maria M-wound No Skin Appearance) -Ulcer Cleansing soapy water -Foul Odor after Cleansing No -Anesthetic Used 4% Lidocaine Solution #1 Left Plantar medial -Combined with other wound No -Current Size (cm) - Length 1.7 -Current Size (cm) - Width 1.6 -Current Size (cm) - Depth 0.5 -Total Square Cm 2.72 -Photo Taken No -Epithelialization Small 1-33% -Tunneling No -Undermining/Tunneling No -Circular Undermining No -Exudate Amt Small -Exudate Type Serosanguineous -Wound Margin Distinct, Outline Attached -Granulation Amt Large (67-100%) -Granulation Quality [place] -Slough/Fibrin Yes -Necrosis Amt Small (1-33%) -Necrotic Tissue Type Adherent Slough -Texture (Maria M-wound Skin Appearance) Assessed,Callus ,Scarring -Moisture (Maria M-wound Skin Appearance Assessed,Dry/ ) Scaly -Color (Maria M-wound Skin Appearance) Assessed -Temperature (Maria M-wound Skin No Abnormality Appearance) (Pt Warm) -Tenderness on Palpation (Maria M-wound No Skin Appearance) -Ulcer Cleansing soapy water -Foul Odor after Cleansing No -Anesthetic Used 4% Lidocaine Solution [Edema Assessment] -Lower Limb Edema Present Yes -Right Calf (cm) 49.1 -Right Ankle (cm) 26.4 WC - Nurse 2 - General Ulcer CM Notes Start: 05/24/20 09:49 Freq: Status: Active Protocol: Activity Type Activity Date Activity User E-Sign Co-Sign Detail Recorded Client Recorded Date Recorded By Document 06/21/20 11:01 [facility] [id number] 06/21/20 11:20 [facility] 06/21/20 11:01 Wound Center Nurse 2 [Procedure/Treatment] #9 right lateral plantar -Time 11:10 -Correct Patient Yes -Correct Side, Site, Position Yes -Correct Procedure Yes -Procedure Performed Yes -Type of Procedure Debridement -Clinical Debridement Subcutaneous -Tissue Removed Subcutaneous -Post Debridement (cm) - Length 1.7 -Post Debridement (cm) - Width 2.2 -Post Debridement (cm) - Depth 0.3 -Total Square (Post) (cm) 3.74 -Area of Debridement (cm) - Length 1.7 -Area of Debridement (cm) - Width 2.2 -Total Square (Area) (cm) 3.74 -Tunneling No -Undermining/Tunneling No -Circular Undermining No -Wound/Ulcer Outcome Not Healed -Ulcer Cleansing Rinsed/ Irrigated with Saline -Foul Odor after Cleansing No -Bioengineered Tissue No -Bleeding Controlled with Pressure -Offloading Yes -Type of Offloading Surgical Shoe -Treatment Response Procedure Tolerated Well -Debridement - Subq, 1st 20sq cm Yes #8 right 3rd toe -Time 11:11 -Correct Patient No -Correct Side, Site, Position No -Correct Procedure No -Procedure Performed No -Post Debridement (cm) - Length 0 -Post Debridement (cm) - Width 0 -Post Debridement (cm) - Depth 0 -Total Square (Post) (cm) 0 -Area of Debridement (cm) - Length 0 -Area of Debridement (cm) - Width 0 -Total Square (Area) (cm) 0 -Tunneling No -Undermining/Tunneling No -Circular Undermining No -Wound/Ulcer Outcome Not Healed -Ulcer Cleansing Rinsed/ Irrigated with Saline -Foul Odor after Cleansing No -Bioengineered Tissue No -Bleeding Controlled with Pressure -Offloading Yes -Type of Offloading Surgical Shoe -Treatment Response Procedure Tolerated Well -Debridement - Subq, 1st 20sq cm No #7 right 2nd toe -Time 11:11 -Correct Patient Yes -Correct Side, Site, Position Yes -Correct Procedure Yes -Procedure Performed Yes -Type of Procedure Debridement -Clinical Debridement Subcutaneous -Tissue Removed Subcutaneous -Post Debridement (cm) - Length 1.0 -Post Debridement (cm) - Width 0.8 -Post Debridement (cm) - Depth 0.1 -Total Square (Post) (cm) 0.80 -Area of Debridement (cm) - Length 1.0 -Area of Debridement (cm) - Width 0.8 -Total Square (Area) (cm) 0.80 -Tunneling No -Undermining/Tunneling No -Circular Undermining No -Wound/Ulcer Outcome Not Healed -Ulcer Cleansing Rinsed/ Irrigated with Saline -Foul Odor after Cleansing No -Bioengineered Tissue No -Bleeding Controlled with Pressure -Offloading Yes -Type of Offloading Surgical Shoe -Treatment Response Procedure Tolerated Well -Debridement - Subq, 1st 20sq cm No #6 right lateral base great toe -Time 11:12 -Correct Patient Yes -Correct Side, Site, Position Yes -Correct Procedure Yes -Procedure Performed Yes -Type of Procedure Debridement -Clinical Debridement Subcutaneous -Tissue Removed Subcutaneous -Post Debridement (cm) - Length 0.3 -Post Debridement (cm) - Width 0.5 -Post Debridement (cm) - Depth 0.1 -Total Square (Post) (cm) 0.15 -Area of Debridement (cm) - Length 0.3 -Area of Debridement (cm) - Width 0.5 -Total Square (Area) (cm) 0.15 -Tunneling No -Undermining/Tunneling No -Circular Undermining No -Wound/Ulcer Outcome Not Healed -Ulcer Cleansing Rinsed/ Irrigated with Saline -Foul Odor after Cleansing No -Bioengineered Tissue No -Treatment Response Procedure Tolerated Well -Debridement - Subq, 1st 20sq cm No #5 right great toe cluster -Time 11:13 -Correct Patient Yes -Correct Side, Site, Position Yes -Correct Procedure Yes -Procedure Performed Yes -Type of Procedure Debridement -Clinical Debridement Subcutaneous -Tissue Removed Subcutaneous -Post Debridement (cm) - Length 0.1 -Post Debridement (cm) - Width 0.1 -Post Debridement (cm) - Depth 0.1 -Total Square (Post) (cm) 0.01 -Area of Debridement (cm) - Length 0.1 -Area of Debridement (cm) - Width 0.1 -Total Square (Area) (cm) 0.01 -Tunneling No -Undermining/Tunneling No -Circular Undermining No -Wound/Ulcer Outcome Not Healed -Ulcer Cleansing Rinsed/ Irrigated with Saline -Foul Odor after Cleansing No -Bioengineered Tissue No -Bleeding Controlled with Pressure -Offloading Yes -Type of Offloading Surgical Shoe -Treatment Response Procedure Tolerated Well -Debridement - Subq, 1st 20sq cm No #4 right medial dorsal cluster -Time 11:13 -Correct Patient Yes -Correct Side, Site, Position Yes -Correct Procedure Yes -Procedure Performed Yes -Type of Procedure Debridement -Clinical Debridement Subcutaneous -Tissue Removed Subcutaneous -Post Debridement (cm) - Length 1.0 -Post Debridement (cm) - Width 0.3 -Post Debridement (cm) - Depth 0.2 -Total Square (Post) (cm) 0.30 -Area of Debridement (cm) - Length 1.0 -Area of Debridement (cm) - Width 0.3 -Total Square (Area) (cm) 0.30 -Tunneling No -Undermining/Tunneling No -Circular Undermining No -Wound/Ulcer Outcome Not Healed -Ulcer Cleansing Rinsed/ Irrigated with Saline -Foul Odor after Cleansing No -Bioengineered Tissue No -Bleeding Controlled with Pressure -Offloading Yes -Type of Offloading Surgical Shoe -Treatment Response Procedure Tolerated Well -Debridement - Subq, 1st 20sq cm No #3 right medial ankle -Time 11:14 -Correct Patient Yes -Correct Side, Site, Position Yes -Correct Procedure Yes -Procedure Performed Yes -Type of Procedure Debridement -Clinical Debridement Subcutaneous -Tissue Removed Subcutaneous -Post Debridement (cm) - Length 2.8 -Post Debridement (cm) - Width 1.5 -Post Debridement (cm) - Depth 0.2 -Total Square (Post) (cm) 4.20 -Area of Debridement (cm) - Length 2.8 -Area of Debridement (cm) - Width 1.5 -Total Square (Area) (cm) 4.20 -Tunneling No -Undermining/Tunneling No -Circular Undermining No -Wound/Ulcer Outcome Not Healed -Ulcer Cleansing Rinsed/ Irrigated with Saline -Foul Odor after Cleansing No -Bioengineered Tissue No -Bleeding Controlled with Pressure -Offloading Yes -Type of Offloading Surgical Shoe -Treatment Response Procedure Tolerated Well -Debridement - Subq, 1st 20sq cm No #1 Left Plantar medial -Time 11:14 -Correct Patient Yes -Correct Side, Site, Position Yes -Correct Procedure Yes -Procedure Performed Yes -Type of Procedure Debridement -Clinical Debridement Subcutaneous -Tissue Removed Subcutaneous -Post Debridement (cm) - Length 2.0 -Post Debridement (cm) - Width 1.4 -Post Debridement (cm) - Depth 0.2 -Total Square (Post) (cm) 2.80 -Area of Debridement (cm) - Length 2.0 -Area of Debridement (cm) - Width 1.4 -Total Square (Area) (cm) 2.80 -Tunneling No -Undermining/Tunneling No -Circular Undermining No -Wound/Ulcer Outcome Not Healed -Ulcer Cleansing Rinsed/ Irrigated with Saline -Foul Odor after Cleansing No -Bioengineered Tissue Yes -Type of Bioengineered Tissue Epifix -Expiration Date 02/20/25 -Product Lot Number [id number] -Percent Used 100 -Saline Lot Number [id number] -Bleeding Controlled with Pressure -Offloading Yes -Type of Offloading Total Contact Cast (TCC) - Left ($) -Treatment Response Procedure Tolerated Well -Debridement - Subq, 1st 20sq cm No -Apply Skin Sub - 1st 25 sq cm - Feet 1 -Epifix (per sq cm) 4 [See Physician Procedure note for Specifics] Pain Scale: 0-10 Numeric [Pain] -Is Patient Pain Free? Yes - Nurse 3 - General Ulcer D/C NN Start: 05/24/20 09:49 Freq: Status: Active Protocol: Activity Type Activity Date Activity User E-Sign Co-Sign Detail Recorded Client Recorded Date Recorded By Document 06/21/20 11:36 [facility] [id number] 06/21/20 11:41 [facility] 06/21/20 11:36 Wound Care Nurse 3 [Wound Dressing] #9 right lateral plantar -Ulcer Cleansing Rinsed/ Irrigated with Saline -Foul Odor after Cleansing No -Primary Dressing Applied Aquacel AG 4x4 -Primary Dressing Covered/Secured Dry Gauze & with Roll Gauze, Secured with Tape -Aquacel AG 4x4 1 #7 right 2nd toe -Ulcer Cleansing Rinsed/ Irrigated with Saline -Foul Odor after Cleansing No -Primary Dressing Applied Aquacel AG 4x4 -Primary Dressing Covered/Secured Dry Gauze & with Roll Gauze, Secured with Tape -Aquacel AG 4x4 0 #6 right lateral base great toe -Ulcer Cleansing Rinsed/ Irrigated with Saline -Foul Odor after Cleansing No -Primary Dressing Applied Aquacel AG 4x4 -Primary Dressing Covered/Secured Dry Gauze & with Roll Gauze, Secured with Tape -Aquacel AG 4x4 0 #5 right great toe cluster -Ulcer Cleansing Rinsed/ Irrigated with Saline -Foul Odor after Cleansing No -Primary Dressing Applied Aquacel AG 4x4 -Primary Dressing Covered/Secured Dry Gauze & with Roll Gauze, Secured with Tape -Aquacel AG 4x4 0 #4 right medial dorsal cluster -Ulcer Cleansing Rinsed/ Irrigated with Saline -Foul Odor after Cleansing No -Primary Dressing Applied Aquacel AG 4x4, Other -Primary Dressing Covered/Secured Dry Gauze & with Roll Gauze, Secured with Tape -Aquacel AG 4x4 0 #3 right medial ankle -Ulcer Cleansing Rinsed/ Irrigated with Saline -Foul Odor after Cleansing No -Primary Dressing Applied Aquacel AG 4x4 -Primary Dressing Covered/Secured Dry Gauze & with Roll Gauze, Secured with Tape -Aquacel AG 4x4 0 #1 Left Plantar medial -Primary Dressing Applied Other -Other Dressing epifix per fascihakan -Primary Dressing Covered/Secured Other with -Other Covering tcc undercast [Compression Applied] Left -Other tcc undercast [Post Procedure Tolerated] -Treatment Response Procedure Tolerated Well Vital Signs [Pulse] -Pulse Rate (60-100) 72 -Pulse Location Monitor [Respirations] -Respiratory Rate (12-18) 18 -Respiratory rate source Observation -Oxygen Delivery Method Room Air [Blood Pressure] -Blood Pressure (90/60-120/80) 165/94 H -Blood Pressure Mean (mm Hg) 117 -Source Monitor -Position Sitting -Blood Pressure Location Right Arm WC - Visit Discharge [Visit Discharge Information] -Discharge Condition Stable -Ambulatory Status Ambulatory -Transportation Private Auto Musculoskeletal: No Tenderness to Palpation of Joints or Extremities, Muscle Wasting, - - Left transmetatarsal amputation. Compartments remain soft to palpate bilateral lower extremities Neurological: - - Lack of epicritic sensation light touch is consistent with neuropathy status Psych/Mental Status: Normal Affect, Appropriate Debridement Note Post-Debridement Measurements/Treatment - Nurse 2 - General Ulcer CM Notes Start: 05/24/20 09:49 Freq: Status: Active Protocol: Activity Type Activity Date Activity User E-Sign Co-Sign Detail Recorded Client Recorded Date Recorded By Document 05/24/20 10:23 [id number] 05/24/20 10:30 Document 05/31/20 11:30 [id number] 05/31/20 11:33 Document 06/07/20 12:40 [id number] 06/07/20 12:49 Document 06/14/20 15:45 [id number] 06/14/20 16:07 Document 06/21/20 11:01 [id number] 06/21/20 11:20 JF 05/24/20 05/31/20 06/07/20 10:23 11:30 12:40 Wound Center Nurse 2 #9 right lateral plantar -Time 12:41 -Correct Patient Yes -Correct Side, Site, Position Yes -Correct Procedure Yes -Procedure Performed Yes -Type of Procedure Debridement -Clinical Debridement Subcutaneous -Tissue Removed Subcutaneous -Post Debridement (cm) - Length 1.8 -Post Debridement (cm) - Width 2.3 -Post Debridement (cm) - Depth 0.5 -Total Square (Post) (cm) 4.14 -Area of Debridement (cm) - Length 1.8 -Area of Debridement (cm) - Width 2.3 -Total Square (Area) (cm) 4.14 -Tunneling No -Tunneling Position (O'clock) -Tunneling Distance (cm) -Undermining/Tunneling No -Circular Undermining No -Wound/Ulcer Outcome Not Healed -Ulcer Cleansing Rinsed/ Irrigated with Saline -Foul Odor after Cleansing No -Bioengineered Tissue No -Bleeding Controlled with Pressure -Offloading No -Type of Offloading -Treatment Response Procedure Tolerated Well -Debridement - Subq, 1st 20sq cm Yes #8 right 3rd toe -Time 12:43 -Correct Patient Yes -Correct Side, Site, Position Yes -Correct Procedure Yes -Procedure Performed Yes -Type of Procedure Debridement -Clinical Debridement Subcutaneous -Tissue Removed Subcutaneous -Post Debridement (cm) - Length 0.3 -Post Debridement (cm) - Width 0.4 -Post Debridement (cm) - Depth 0.2 -Total Square (Post) (cm) 0.12 -Area of Debridement (cm) - Length 0.3 -Area of Debridement (cm) - Width 0.4 -Total Square (Area) (cm) 0.12 -Tunneling No -Undermining/Tunneling No -Circular Undermining No -Wound/Ulcer Outcome Not Healed -Ulcer Cleansing Rinsed/ Irrigated with Saline -Foul Odor after Cleansing No -Bioengineered Tissue No -Bleeding Controlled with Pressure -Offloading Yes -Type of Offloading Surgical Shoe -Treatment Response Procedure Tolerated Well -Debridement - Subq, 1st 20sq cm No #7 right 2nd toe -Time 12:43 -Correct Patient Yes -Correct Side, Site, Position Yes -Correct Procedure Yes -Procedure Performed Yes -Type of Procedure Debridement -Clinical Debridement Subcutaneous -Tissue Removed Subcutaneous -Post Debridement (cm) - Length 2.3 -Post Debridement (cm) - Width 1.3 -Post Debridement (cm) - Depth 0.3 -Total Square (Post) (cm) 2.99 -Area of Debridement (cm) - Length 2.3 -Area of Debridement (cm) - Width 1.3 -Total Square (Area) (cm) 2.99 -Tunneling No -Undermining/Tunneling No -Circular Undermining No -Wound/Ulcer Outcome Not Healed -Ulcer Cleansing Rinsed/ Irrigated with Saline -Foul Odor after Cleansing No -Bioengineered Tissue No -Bleeding Controlled with Pressure -Offloading Yes -Type of Offloading Surgical Shoe -Treatment Response Procedure Tolerated Well -Debridement - Subq, 1st 20sq cm No #6 right lateral base great toe -Time 12:44 -Correct Patient Yes -Correct Side, Site, Position Yes -Correct Procedure Yes -Procedure Performed Yes -Type of Procedure Debridement -Clinical Debridement Subcutaneous -Tissue Removed Subcutaneous -Post Debridement (cm) - Length 0.2 -Post Debridement (cm) - Width 0.8 -Post Debridement (cm) - Depth 0.2 -Total Square (Post) (cm) 0.16 -Area of Debridement (cm) - Length 0.2 -Area of Debridement (cm) - Width 0.8 -Total Square (Area) (cm) 0.16 -Tunneling No -Undermining/Tunneling No -Circular Undermining No -Wound/Ulcer Outcome Not Healed -Ulcer Cleansing Rinsed/ Irrigated with Saline -Foul Odor after Cleansing No -Bioengineered Tissue No -Bleeding Controlled with Pressure -Offloading Yes -Type of Offloading Surgical Shoe -Treatment Response Procedure Tolerated Well -Debridement - Subq, 1st 20sq cm No #5 right great toe cluster -Time 12:44 -Correct Patient Yes -Correct Side, Site, Position Yes -Correct Procedure Yes -Procedure Performed Yes -Type of Procedure Debridement -Clinical Debridement Subcutaneous -Tissue Removed Subcutaneous -Post Debridement (cm) - Length 0.5 -Post Debridement (cm) - Width 2.4 -Post Debridement (cm) - Depth 0.3 -Total Square (Post) (cm) 1.20 -Area of Debridement (cm) - Length 0.5 -Area of Debridement (cm) - Width 2.4 -Total Square (Area) (cm) 1.20 -Tunneling No -Undermining/Tunneling No -Circular Undermining No -Wound/Ulcer Outcome Not Healed -Ulcer Cleansing Rinsed/ Irrigated with Saline -Foul Odor after Cleansing No -Bioengineered Tissue No -Bleeding Controlled with Pressure -Offloading Yes -Type of Offloading Surgical Shoe -Treatment Response Procedure Tolerated Well -Debridement - Subq, 1st 20sq cm No #4 right medial dorsal cluster -Time 12:45 -Correct Patient Yes -Correct Side, Site, Position Yes -Correct Procedure Yes -Procedure Performed Yes -Type of Procedure Debridement -Clinical Debridement Subcutaneous -Tissue Removed Subcutaneous -Post Debridement (cm) - Length 1.8 -Post Debridement (cm) - Width 1.2 -Post Debridement (cm) - Depth 0.2 -Total Square (Post) (cm) 2.16 -Area of Debridement (cm) - Length 1.8 -Area of Debridement (cm) - Width 1.2 -Total Square (Area) (cm) 2.16 -Tunneling No -Undermining/Tunneling No -Circular Undermining No -Wound/Ulcer Outcome Not Healed -Ulcer Cleansing Rinsed/ Irrigated with Saline -Foul Odor after Cleansing No -Bioengineered Tissue No -Bleeding Controlled with Pressure -Offloading Yes -Type of Offloading Surgical Shoe -Treatment Response Procedure Tolerated Well -Debridement - Subq, 20sq cm No #3 right medial ankle -Time 12:46 -Correct Patient Yes -Correct Side, Site, Position Yes -Correct Procedure Yes -Procedure Performed Yes -Type of Procedure Debridement -Clinical Debridement Subcutaneous -Tissue Removed Subcutaneous -Post Debridement (cm) - Length 3.5 -Post Debridement (cm) - Width 2.4 -Post Debridement (cm) - Depth 0.2 -Total Square (Post) (cm) 8.40 -Area of Debridement (cm) - Length 3.5 -Area of Debridement (cm) - Width 2.4 -Total Square (Area) (cm) 8.40 -Tunneling No -Undermining/Tunneling No -Circular Undermining No -Wound/Ulcer Outcome Not Healed -Ulcer Cleansing Rinsed/ Irrigated with Saline -Foul Odor after Cleansing No -Bioengineered Tissue No -Bleeding Controlled with Pressure -Offloading Yes -Type of Offloading Surgical Shoe -Treatment Response Procedure Tolerated Well -Debridement - Subq, 1st 20sq cm No #1 Left Plantar medial -Time 10:23 11:31 12:46 -Correct Patient Yes Yes Yes -Correct Side, Site, Position Yes Yes Yes -Correct Procedure Yes Yes Yes -Procedure Performed Yes Yes Yes -Type of Procedure Debridement Debridement Debridement -Clinical Debridement Subcutaneous Subcutaneous Subcutaneous -Tissue Removed Subcutaneous Subcutaneous Subcutaneous -Post Debridement (cm) - Length 2.2 2.0 2.1 -Post Debridement (cm) - Width 2.2 2.0 2 -Post Debridement (cm) - Depth 0.3 0.6 0.3 -Total Square (Post) (cm) 4.84 4.00 4.2 -Area of Debridement (cm) - Length 2.2 2.0 2.1 -Area of Debridement (cm) - Width 2.2 2.0 2 -Total Square (Area) (cm) 4.84 4.00 4.2 -Tunneling No No No -Undermining/Tunneling No No No -Circular Undermining No No No -Wound/Ulcer Outcome Not Healed Not Healed Not Healed -Ulcer Cleansing Rinsed/ Rinsed/ Rinsed/ Irrigated with Irrigated with Irrigated with Saline Saline Saline -Foul Odor after Cleansing No No No -Bioengineered Tissue Yes Yes Yes -Type of Bioengineered Tissue Epifix Epifix 18mm Epifix Disc -Expiration Date 01/20/25 01/20/25 01/20/25 -Product Lot Number [id number] -Percent Used 100 100 100 -Saline Lot Number [id number] -Bleeding Controlled with Pressure Pressure Pressure -Offloading Yes Yes Yes -Type of Offloading Total Contact Total Contact Total Contact Cast (TCC) - Cast (TCC) - Cast (TCC) - Left ($) Left ($) Left ($) -Treatment Response Procedure Procedure Tolerated Well Tolerated Well -Debridement - Subq, 1st 20sq cm No No No -Apply Skin Sub - 1st 25 sq cm - Feet 1 1 1 -Epifix (per sq cm) 4 4 4 -Epifix 18mm Disc 0 Pain Scale: 0-10 Numeric Is Patient Pain Free? Yes Yes Yes 06/14/20 06/21/20 15:45 11:01 Wound Center Nurse 2 #9 right lateral plantar -Time 15:46 11:10 -Correct Patient Yes Yes -Correct Side, Site, Position Yes Yes -Correct Procedure Yes Yes -Procedure Performed Yes Yes -Type of Procedure Debridement Debridement -Clinical Debridement Subcutaneous Subcutaneous -Tissue Removed Subcutaneous Subcutaneous -Post Debridement (cm) - Length 1.5 1.7 -Post Debridement (cm) - Width 2.5 2.2 -Post Debridement (cm) - Depth 0.4 0.3 -Total Square (Post) (cm) 3.75 3.74 -Area of Debridement (cm) - Length 1.5 1.7 -Area of Debridement (cm) - Width 2.5 2.2 -Total Square (Area) (cm) 3.75 3.74 -Tunneling Yes No -Tunneling Position (O'clock) 5 -Tunneling Distance (cm) 3.5 -Undermining/Tunneling No No -Circular Undermining No No -Wound/Ulcer Outcome Not Healed Not Healed -Ulcer Cleansing Rinsed/ Rinsed/ Irrigated with Irrigated with Saline Saline -Foul Odor after Cleansing No -Bioengineered Tissue No No -Bleeding Controlled with Pressure Pressure -Offloading Yes Yes -Type of Offloading Surgical Shoe Surgical Shoe -Treatment Response Procedure Procedure Tolerated Well Tolerated Well -Debridement - Subq, 1st 20sq cm Yes Yes #8 right 3rd toe -Time 16:00 11:11 -Correct Patient Yes No -Correct Side, Site, Position Yes No -Correct Procedure Yes No -Procedure Performed Yes No -Type of Procedure Debridement -Clinical Debridement Subcutaneous -Tissue Removed Subcutaneous -Post Debridement (cm) - Length 0.3 0 -Post Debridement (cm) - Width 0.2 0 -Post Debridement (cm) - Depth 0.1 0 -Total Square (Post) (cm) 0.06 0 -Area of Debridement (cm) - Length 0.3 0 -Area of Debridement (cm) - Width 0.2 0 -Total Square (Area) (cm) 0.06 0 -Tunneling No No -Undermining/Tunneling No No -Circular Undermining No No -Wound/Ulcer Outcome Not Healed Not Healed -Ulcer Cleansing Rinsed/ Rinsed/ Irrigated with Irrigated with Saline Saline -Foul Odor after Cleansing No No -Bioengineered Tissue No No -Bleeding Controlled with Pressure Pressure -Offloading Yes Yes -Type of Offloading Surgical Shoe Surgical Shoe -Treatment Response Procedure Procedure Tolerated Well Tolerated Well -Debridement - Subq, 1st 20sq cm No No #7 right 2nd toe -Time 16:00 11:11 -Correct Patient Yes Yes -Correct Side, Site, Position Yes Yes -Correct Procedure Yes Yes -Procedure Performed Yes Yes -Type of Procedure Debridement Debridement -Clinical Debridement Subcutaneous Subcutaneous -Tissue Removed Subcutaneous Subcutaneous -Post Debridement (cm) - Length 1.5 1.0 -Post Debridement (cm) - Width 0.6 0.8 -Post Debridement (cm) - Depth 0.2 0.1 -Total Square (Post) (cm) 0.90 0.80 -Area of Debridement (cm) - Length 1.5 1.0 -Area of Debridement (cm) - Width 0.6 0.8 -Total Square (Area) (cm) 0.90 0.80 -Tunneling No No -Undermining/Tunneling No No -Circular Undermining No No -Wound/Ulcer Outcome Not Healed Not Healed -Ulcer Cleansing Rinsed/ Rinsed/ Irrigated with Irrigated with Saline Saline -Foul Odor after Cleansing No No -Bioengineered Tissue No No -Bleeding Controlled with Pressure Pressure -Offloading Yes Yes -Type of Offloading Surgical Shoe Surgical Shoe -Treatment Response Procedure Procedure Tolerated Well Tolerated Well -Debridement - Subq, 1st 20sq cm No No #6 right lateral base great toe -Time 16:01 11:12 -Correct Patient Yes Yes -Correct Side, Site, Position Yes Yes -Correct Procedure Yes Yes -Procedure Performed Yes Yes -Type of Procedure Debridement Debridement -Clinical Debridement Subcutaneous Subcutaneous -Tissue Removed Subcutaneous Subcutaneous -Post Debridement (cm) - Length 0.2 0.3 -Post Debridement (cm) - Width 0.2 0.5 -Post Debridement (cm) - Depth 0.1 0.1 -Total Square (Post) (cm) 0.04 0.15 -Area of Debridement (cm) - Length 0.2 0.3 -Area of Debridement (cm) - Width 0.2 0.5 -Total Square (Area) (cm) 0.04 0.15 -Tunneling No No -Undermining/Tunneling No No -Circular Undermining No No -Wound/Ulcer Outcome Not Healed Not Healed -Ulcer Cleansing Rinsed/ Rinsed/ Irrigated with Irrigated with Saline Saline -Foul Odor after Cleansing No No -Bioengineered Tissue No No -Bleeding Controlled with Pressure -Offloading No -Type of Offloading -Treatment Response Procedure Procedure Tolerated Well Tolerated Well -Debridement - Subq, 1st 20sq cm No No #5 right great toe cluster -Time 16: 11:13 -Correct Patient Yes Yes -Correct Side, Site, Position Yes Yes -Correct Procedure Yes Yes -Procedure Performed Yes Yes -Type of Procedure Debridement Debridement -Clinical Debridement Subcutaneous Subcutaneous -Tissue Removed Subcutaneous Subcutaneous -Post Debridement (cm) - Length 0.3 0.1 -Post Debridement (cm) - Width 0.3 0.1 -Post Debridement (cm) - Depth 0.1 0.1 -Total Square (Post) (cm) 0.09 0.01 -Area of Debridement (cm) - Length 0.3 0.1 -Area of Debridement (cm) - Width 0.3 0.1 -Total Square (Area) (cm) 0.09 0.01 -Tunneling No No -Undermining/Tunneling No No -Circular Undermining No No -Wound/Ulcer Outcome Not Healed Not Healed -Ulcer Cleansing Rinsed/ Rinsed/ Irrigated with Irrigated with Saline Saline -Foul Odor after Cleansing No No -Bioengineered Tissue No No -Bleeding Controlled with Pressure Pressure -Offloading No Yes -Type of Offloading Surgical Shoe -Treatment Response Procedure Procedure Tolerated Well Tolerated Well -Debridement - Subq, 1st 20sq cm No No #4 right medial dorsal cluster -Time 16: 11:13 -Correct Patient Yes Yes -Correct Side, Site, Position Yes Yes -Correct Procedure Yes Yes -Procedure Performed Yes Yes -Type of Procedure Debridement Debridement -Clinical Debridement Subcutaneous Subcutaneous -Tissue Removed Subcutaneous Subcutaneous -Post Debridement (cm) - Length 0.3 1.0 -Post Debridement (cm) - Width 0.4 0.3 -Post Debridement (cm) - Depth 0.2 0.2 -Total Square (Post) (cm) 0.12 0.30 -Area of Debridement (cm) - Length 0.3 1.0 -Area of Debridement (cm) - Width 0.4 0.3 -Total Square (Area) (cm) 0.12 0.30 -Tunneling No No -Undermining/Tunneling No No -Circular Undermining No No -Wound/Ulcer Outcome Not Healed Not Healed -Ulcer Cleansing Rinsed/ Rinsed/ Irrigated with Irrigated with Saline Saline -Foul Odor after Cleansing No No -Bioengineered Tissue No No -Bleeding Controlled with Pressure Pressure -Offloading No Yes -Type of Offloading Surgical Shoe -Treatment Response Procedure Procedure Tolerated Well Tolerated Well -Debridement - Subq, 1st 20sq cm No No #3 right medial ankle -Time 16:03 11:14 -Correct Patient Yes Yes -Correct Side, Site, Position Yes Yes -Correct Procedure Yes Yes -Procedure Performed Yes Yes -Type of Procedure Debridement Debridement -Clinical Debridement Subcutaneous Subcutaneous -Tissue Removed Subcutaneous Subcutaneous -Post Debridement (cm) - Length 3.3 2.8 -Post Debridement (cm) - Width 2.2 1.5 -Post Debridement (cm) - Depth 0.2 0.2 -Total Square (Post) (cm) 7.26 4.20 -Area of Debridement (cm) - Length 3.3 2.8 -Area of Debridement (cm) - Width 2.2 1.5 -Total Square (Area) (cm) 7.26 4.20 -Tunneling No No -Undermining/Tunneling No No -Circular Undermining No No -Wound/Ulcer Outcome Not Healed Not Healed -Ulcer Cleansing Rinsed/ Rinsed/ Irrigated with Irrigated with Saline Saline -Foul Odor after Cleansing No No -Bioengineered Tissue No No -Bleeding Controlled with Pressure Pressure -Offloading Yes Yes -Type of Offloading Surgical Shoe Surgical Shoe -Treatment Response Procedure Procedure Tolerated Well Tolerated Well -Debridement - Subq, 1st 20sq cm No No #1 Left Plantar medial -Time 16:04 11:14 -Correct Patient Yes Yes -Correct Side, Site, Position Yes Yes -Correct Procedure Yes Yes -Procedure Performed Yes Yes -Type of Procedure Debridement Debridement -Clinical Debridement Subcutaneous Subcutaneous -Tissue Removed Subcutaneous Subcutaneous -Post Debridement (cm) - Length 2.3 2.0 -Post Debridement (cm) - Width 2 1.4 -Post Debridement (cm) - Depth 0.6 0.2 -Total Square (Post) (cm) 4.6 2.80 -Area of Debridement (cm) - Length 2.3 2.0 -Area of Debridement (cm) - Width 2.0 1.4 -Total Square (Area) (cm) 4.60 2.80 -Tunneling No No -Undermining/Tunneling No No -Circular Undermining No No -Wound/Ulcer Outcome Not Healed Not Healed -Ulcer Cleansing Rinsed/ Rinsed/ Irrigated with Irrigated with Saline Saline -Foul Odor after Cleansing No No -Bioengineered Tissue Yes Yes -Type of Bioengineered Tissue Epifix 18mm Epifix Disc -Expiration Date 01/20/25 02/20/25 -Product Lot Number [id number] -Percent Used 100 100 -Saline Lot Number [id number] -Bleeding Controlled with Pressure Pressure -Offloading Yes Yes -Type of Offloading Total Contact Total Contact Cast (TCC) - Cast (TCC) - Left ($) Left ($) -Treatment Response Procedure Tolerated Well -Debridement - Subq, 1st 20sq cm No No -Apply Skin Sub - 1st 25 sq cm - Feet 1 1 -Epifix (per sq cm) 4 4 -Epifix 18mm Disc 0 Pain Scale: 0-10 Numeric Is Patient Pain Free? Yes Yes - Nurse 3 - General Ulcer D/C NN Start: 05/24/20 09:49 Freq: Status: Active Protocol: Activity Type Activity Date Activity User E-Sign Co-Sign Detail Recorded Client Recorded Date Recorded By Document 05/24/20 10:47 [id number] 05/24/20 10:48 RB Document 05/30/20 12:22 [id number] 05/30/20 12:25 Document 05/31/20 11:52 [id number] 05/31/20 11:53 RB Document 06/06/20 11:08 [id number] 06/06/20 11:12 Document 06/09/20 11:08 [id number] 06/09/20 11:14 Document 06/13/20 12:06 [id number] 06/13/20 12:09 Document 06/14/20 16:15 [facility] [id number] 06/14/20 16:18 [facility] Document 06/21/20 11:36 [facility] [id number] 06/21/20 11:41 [facility] 05/24/20 05/30/20 05/31/20 10:47 12:22 11:52 Wound Care Nurse 3 #9 right lateral plantar -Ulcer Cleansing -Foul Odor after Cleansing -Primary Dressing Applied -Primary Dressing Covered/Secured with -Aquacel AG 4x4 #8 right 3rd toe -Ulcer Cleansing -Foul Odor after Cleansing -Primary Dressing Applied -Primary Dressing Covered/Secured with -Aquacel AG 4x4 #7 right 2nd toe -Ulcer Cleansing -Foul Odor after Cleansing -Primary Dressing Applied -Primary Dressing Covered/Secured with -Aquacel AG 4x4 #6 right lateral base great toe -Ulcer Cleansing -Foul Odor after Cleansing -Primary Dressing Applied -Primary Dressing Covered/Secured with -Aquacel AG 4x4 #5 right great toe cluster -Ulcer Cleansing -Foul Odor after Cleansing -Primary Dressing Applied -Primary Dressing Covered/Secured with -Aquacel AG 4x4 #4 right medial dorsal cluster -Ulcer Cleansing -Foul Odor after Cleansing -Primary Dressing Applied -Primary Dressing Covered/Secured with -Aquacel AG 4x4 #3 right medial ankle -Ulcer Cleansing -Foul Odor after Cleansing -Primary Dressing Applied -Primary Dressing Covered/Secured with -Aquacel AG 4x4 #1 Left Plantar medial -Primary Dressing Applied -Other Dressing primary layer primary layer TCC TCC applied -Primary Dressing Covered/Secured with -Other Covering Right -Tubular Bandage -Size of Tubigrip Used -Size F ($) Left -Other primary layer TCC 3 inch Treatment Response Procedure Procedure Tolerated Well Tolerated Well Pain Scale: 0-10 Numeric Is Patient Pain Free? Yes Yes Yes Pulse Rate (60-100) Pulse Location Vital Signs Respiratory Rate (12-18) Respiratory rate source Oxygen Delivery Method Blood Pressure (90/60-120/80) Blood Pressure Mean (mm Hg) Source Position Blood Pressure Location Teaching: Wound Center Foot Care -Person Taught Patient -Teaching Method Discussion -Response to teaching Verbalize understanding WC - Visit Discharge Discharge Condition Stable Stable Stable Ambulatory Status Ambulatory Ambulatory,Cane Cane Transportation Private Auto Private Auto Private Auto Medication Reconcilliation completed & No Yes No provided to patient/care provider Clinical Summary of Care Provided Yes Yes Yes Facility Type 06/06/20 06/09/20 06/13/20 11:08 11:08 12:06 Wound Care Nurse 3 #9 right lateral plantar -Ulcer Cleansing -Foul Odor after Cleansing -Primary Dressing Applied -Primary Dressing Covered/Secured with -Aquacel AG 4x4 #8 right 3rd toe -Ulcer Cleansing -Foul Odor after Cleansing -Primary Dressing Applied -Primary Dressing Covered/Secured with -Aquacel AG 4x4 #7 right 2nd toe -Ulcer Cleansing -Foul Odor after Cleansing -Primary Dressing Applied -Primary Dressing Covered/Secured with -Aquacel AG 4x4 #6 right lateral base great toe -Ulcer Cleansing -Foul Odor after Cleansing -Primary Dressing Applied -Primary Dressing Covered/Secured with -Aquacel AG 4x4 #5 right great toe cluster -Ulcer Cleansing -Foul Odor after Cleansing -Primary Dressing Applied -Primary Dressing Covered/Secured with -Aquacel AG 4x4 #4 right medial dorsal cluster -Ulcer Cleansing -Foul Odor after Cleansing -Primary Dressing Applied -Primary Dressing Covered/Secured with -Aquacel AG 4x4 #3 right medial ankle -Ulcer Cleansing -Foul Odor after Cleansing -Primary Dressing Applied -Primary Dressing Covered/Secured with -Aquacel AG 4x4 #1 Left Plantar medial -Primary Dressing Applied -Other Dressing -Primary Dressing Covered/Secured with -Other Covering Right -Tubular Bandage -Size of Tubigrip Used -Size F ($) Left -Other Treatment Response Pain Scale: 0-10 Numeric Is Patient Pain Free? Yes Yes Yes Pulse Rate (60-100) Pulse Location Vital Signs Respiratory Rate (12-18) Respiratory rate source Oxygen Delivery Method Blood Pressure (90/60-120/80) Blood Pressure Mean (mm Hg) Source Position Blood Pressure Location Teaching: Wound Center Foot Care -Person Taught -Teaching Method -Response to teaching WC - Visit Discharge Discharge Condition Stable Stable Stable Ambulatory Status Ambulatory Ambulatory Ambulatory,Cane Transportation Private Auto Private Auto Private Auto Medication Reconcilliation completed & Yes Yes Yes provided to patient/care provider Clinical Summary of Care Provided Yes Yes Yes Facility Type 06/14/20 06/21/20 16:15 11:36 Wound Care Nurse 3 #9 right lateral plantar -Ulcer Cleansing Rinsed/ Rinsed/ Irrigated with Irrigated with Saline Saline -Foul Odor after Cleansing No No -Primary Dressing Applied Aquacel AG 4x4 Aquacel AG 4x4 -Primary Dressing Covered/Secured with Dry Gauze & Dry Gauze & Roll Gauze, Roll Gauze, Secured with Secured with Tape Tape -Aquacel AG 4x4 1 1 #8 right 3rd toe -Ulcer Cleansing Rinsed/ Irrigated with Saline -Foul Odor after Cleansing No -Primary Dressing Applied Aquacel AG 4x4 -Primary Dressing Covered/Secured with Dry Gauze & Roll Gauze, Secured with Tape -Aquacel AG 4x4 0 #7 right 2nd toe -Ulcer Cleansing Rinsed/ Rinsed/ Irrigated with Irrigated with Saline Saline -Foul Odor after Cleansing No No -Primary Dressing Applied Aquacel AG 4x4 Aquacel AG 4x4 -Primary Dressing Covered/Secured with Dry Gauze & Dry Gauze & Roll Gauze, Roll Gauze, Secured with Secured with Tape Tape -Aquacel AG 4x4 0 0 #6 right lateral base great toe -Ulcer Cleansing Rinsed/ Rinsed/ Irrigated with Irrigated with Saline Saline -Foul Odor after Cleansing No No -Primary Dressing Applied Aquacel AG 4x4 Aquacel AG 4x4 -Primary Dressing Covered/Secured with Dry Gauze & Dry Gauze & Roll Gauze, Roll Gauze, Secured with Secured with Tape Tape -Aquacel AG 4x4 0 0 #5 right great toe cluster -Ulcer Cleansing Rinsed/ Rinsed/ Irrigated with Irrigated with Saline Saline -Foul Odor after Cleansing No No -Primary Dressing Applied Aquacel AG 4x4 Aquacel AG 4x4 -Primary Dressing Covered/Secured with Dry Gauze & Dry Gauze & Roll Gauze, Roll Gauze, Secured with Secured with Tape Tape -Aquacel AG 4x4 0 0 #4 right medial dorsal cluster -Ulcer Cleansing Rinsed/ Rinsed/ Irrigated with Irrigated with Saline Saline -Foul Odor after Cleansing No No -Primary Dressing Applied Aquacel AG 4x4 Aquacel AG 4x4, Other -Primary Dressing Covered/Secured with Dry Gauze & Dry Gauze & Roll Gauze, Roll Gauze, Secured with Secured with Tape Tape -Aquacel AG 4x4 0 0 #3 right medial ankle -Ulcer Cleansing Rinsed/ Rinsed/ Irrigated with Irrigated with Saline Saline -Foul Odor after Cleansing No No -Primary Dressing Applied Aquacel AG 4x4 Aquacel AG 4x4 -Primary Dressing Covered/Secured with Dry Gauze & Dry Gauze & Roll Gauze, Roll Gauze, Secured with Secured with Tape Tape -Aquacel AG 4x4 0 0 #1 Left Plantar medial -Primary Dressing Applied Other Other -Other Dressing epifix per dr epifix per dr fascione fascioine -Primary Dressing Covered/Secured with Other Other -Other Covering tcc undercast tcc undercast applied Right -Tubular Bandage Single Layer -Size of Tubigrip Used Size F -Size F ($) 1 Left -Other tcc undercast Treatment Response Procedure Procedure Tolerated Well Tolerated Well Pain Scale: 0-10 Numeric Is Patient Pain Free? Yes Pulse Rate (60-100) 72 Pulse Location Monitor Vital Signs Respiratory Rate (12-18) 16 18 Respiratory rate source Observation Observation Oxygen Delivery Method Room Air Room Air Blood Pressure (90/60-120/80) 165/94 H Blood Pressure Mean (mm Hg) 117 Source Monitor Position Sitting Blood Pressure Location Right Arm Teaching: Wound Center Foot Care -Person Taught -Teaching Method -Response to teaching WC - Visit Discharge Discharge Condition Stable Stable Ambulatory Status Ambulatory Ambulatory Transportation Private Auto Private Auto Medication Reconcilliation completed & provided to patient/care provider Clinical Summary of Care Provided Facility Type Home Health Wound debrided: plantar medial foot Laterality: Left Wound Grade/Stage: grade 3 Type of Debridement: Excisional debridement Anesthesia Used: 5% Lidocaine Gel Depth: in the subcutaneous layer Percentage of wound debrided: 100 Instrument Used: #15 blade Tissue Removed: fibrous, devitalized subcutaneous, biofilm, slough Severity: Fat Layer Exposed Amount of bleeding with debridement: Mild Bleeding Controlled with: Pressure Patient tolerated procedure well - Additional Wound Wound debrided: plantar lateral, hallux, dorsal 2nd toe, medial lower leg Laterality: Right Wound Grade/Stage: grade 1 Type of Debridement: Excisional debridement Anesthesia Used: 5% Lidocaine Gel Depth: in the subcutaneous layer Percentage of wound debrided: 100 Instrument Used: #15 blade Tissue Removed: fibrous, devitalized subcutaneous, biofilm, slough Severity: Fat Layer Exposed Amount of bleeding with debridement: Mild Bleeding Controlled with: Pressure Patient tolerated procedure: Patient tolerated procedure well Assessment/Plan Clinical Impression(s) from Imaging Studies Foot X-Ray 06/07/20 13:38 IMPRESSION: Soft tissue swelling and ulceration overlying the fifth metatarsophalangeal joint. No definite changes of osteomyelitis is seen. Electronically Signed: John Gibbons, at 13:56 EDT , Service support , Active Problems (Last Reviewed 04/24/20 @ 15:[address] 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 Multiple newer right foot ulcers include plantar lateral, dorsal medial, medial ankle, dorsal hallux, second toe, and third toe - manc[place] grade 1. Cellulitis right foot resolving well. Morbid obesity. 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 Subcutaneous excisional debridement was performed as noted in the clinical panel to the left foot and right foot and leg. His ulcer status has improved bilateral. There is no longer any tendon exposed today on the left foot. I would like to consider advanced wound healing product application, epi-fix, and verbal consent was obtained today. The benefits, indications, anticipated application, healing time management were reviewed. This was applied according standard protocol and further secured with a wound veil and Steri-Strips. He tolerated this well to the left foot. He did well with a total contact cast last week and there is been significant reduction in inflammation and callus formation. I recommend application today. Verbal consent was obtained and this was applied according to standard protocol in a neutral position well-padded manner to the left foot. He tolerated this well. He was advised to keep this clean, dry, and intact until follow-up next week. His right foot ulcer sites were also debrided as noted in the clinical panel. To change dressing daily with [employer]. To offload by heel weightbearing in a surgical shoe which was previously provided. I discussed other offloading techniques such as using a walker or a knee roller for the left limb. His noninvasive vascular studies were reviewed from which were normal and intervention was previously not recommended. I advised him to follow-up with all of Dr. Bonilla's recommendations to optimize his healing process. He has for help scheduling this because he has not been able to do this. He has recently been seen and intervention is planned for arterial optimization. An updated bilateral duplex was also recommended to help with planning. He had an updated left foot x-ray which did not demonstrate any new progressive osseous destruction, soft tissue emphysema, fracture, dislocation, or foreign body. I recommend that he sees infectious disease because he is very high risk and input is greatly appreciated. He had recent multi-organism culture (MRSA, E facealis, klebs, strep, corynebacterium) results and cellulitis clinical signs to the right foot. These have improved since he started linezolid and Levaquin over the weekend. An additional weeks course of antibiotics were provided. His right foot x-rays reviewed without any osseous destruction. 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 To continue with hyperbaric oxygen therapy which appears to be helping. I recommend continued course due to his positive response. This is medically necessary and he is responding well and making appropriate progress. It is noted his nutrition, vascular, and medical status is optimized. To continue to work on decreasing glucose levels. He has a history of hyperglycemia. To continue to follow-up with nutritional services. To continue to follow-up as advised. He is currently making adjustments with his eating habits. He also follows up with facility specialist, Dr. Arteaga who is working with him to reduce his hemoglobin A1c with medication and behavioral changes. Smoking cessation was discussed in detail and he was advised on the healing impairment associated with this. To continue with his smoking cessation program. I also recommend discontinuation of nicotine products for this also contributes to small vessel contraction. He has demonstrated appropriate stabilization from an ulcer standpoint with recent qualit I answered all of his questions today. To return to clinic in 1 week or call sooner if questions, concerns, or progressive worsening.
[2020-06-21 14:55] VITALS: BP 149/74; BP 163/78; PULSE 68; PULSE 80; RESP 18; TEMP 36.2; TEMP 36.4
[2020-06-24 15:16] LABS: Bedside Glucose 241 mg/dL (70-110)
== END 2020-06-21 23:59 ==
LOC: WC 08:00
PROVIDERS: PCP Family Medicine Geriatric Medicine; Referring Provider Family Medicine; Visit Provider Family Medicine
DX: E11.621 Type 2 diabetes mellitus with foot ulcer (principal); L97.522 Non-pressure chronic ulcer of other part of left foot with fat layer exposed; L02.612 Cutaneous abscess of left foot; E11.42 Type 2 diabetes mellitus with diabetic polyneuropathy; E66.01 Morbid (severe) obesity due to excess calories; E11.22 Type 2 diabetes mellitus with diabetic chronic kidney disease; N18.2 Chronic kidney disease, stage 2 (mild); Z86.14 Personal history of Methicillin resistant Staphylococcus aureus infection; Z89.432 Acquired absence of left foot; L97.512 Non-pressure chronic ulcer of other part of right foot with fat layer exposed; L97.312 Non-pressure chronic ulcer of right ankle with fat layer exposed; L03.115 Cellulitis of right lower limb; E78.2 Mixed hyperlipidemia; I12.9 Hypertensive chronic kidney disease with stage 1 through stage 4 chronic kidney disease, or unspecified chronic kidney disease; G47.33 Obstructive sleep apnea (adult) (pediatric); F17.210 Nicotine dependence, cigarettes, uncomplicated
CPT/HCPCS: 11042; 15275; 29445; 36415; 73630; 80053; 82962; 85025; 85652; 86140; 87015; 87070; 87075; 87077; 87101; 87116; 87186; 87205; 87206; 87640; 99183; 99213; Q4186; G0277; G0463

== ENCOUNTER 2020-07-19 08:00 | Outpatient (RCR) | payer MEDICARE, MEDICAID, SELFPAY ==
[2020-06-22 00:36] VITALS: BP 149/74; PULSE 68; RESP 18; TEMP 36.4
[2020-06-22 12:03] VITALS: BP 148/81; BP 183/65; PULSE 73; PULSE 94; RESP 18; TEMP 36.6; TEMP 37
--- NOTE | 2020-06-22 12:03 | PCM.HBO.PN ---
History of Present Illness Date of Service: 06/22/20 Presenting Chief Complaint: Diabetic left foot ulceration, Mancilla Grade 3, with infection GEN SIM is a 65 year old currently undergoing hyperbaric oxygen therapy for diabetic left foot infection, Mancilla grade 3. Progress: Today's session represents the 32nd session of hyperbaric oxygen therapy, of an expected 30 such treatments. Tolerance of hyperbaric oxygen therapy: Hyperbaric oxygen therapy was administered as per the facility's protocol. Hyperbaric oxygen therapy was administered for 90 minutes at 2 silas, with two 5-minute air breaks. Upon emergence from the hyperbaric oxygen chamber the patient had no complaints or complications. The patient's vital signs remained stable. The patient was discharged in good condition. His pre-and post- HBO blood sugars are Past Medical History Chronic Problems (Last Reviewed 04/24/20 @ 15:[address] 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) History of transmetatarsal amputation of left foot (Chronic) Ulcer of right foot with fat layer exposed (Chronic) Obesity (Chronic) Tobacco abuse (Chronic) Osteomyelitis, unspecified (Chronic) Chronic ulcer of left foot with fat layer exposed (Chronic) Osteomyelitis of left foot (Chronic) Diabetic ulcer of left foot (Chronic) Other specified peripheral vascular diseases (Chronic) Delayed wound healing (Chronic) Difficulty in walking, not elsewhere classified (Chronic) 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) Tobacco abuse counseling (Chronic) Mixed hyperlipidemia (Chronic) Benign essential hypertension (Chronic) 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) Diabetes (Chronic) Type 2 diabetes mellitus (Chronic) Obstructive sleep apnea (Chronic) Uncontrolled diabetes mellitus (Chronic) Diabetic infection of left foot (Chronic) Osteomyelitis of great toe of left foot (Chronic) Morbid obesity due to excess calories (Chronic) Tobacco dependence due to cigarettes (Chronic) Diabetic neuropathy (Chronic) Hypertension (Chronic) 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) Allergies/Adverse Reactions: Allergies Sulfa (Sulfonamide Antibiotics) Allergy (Verified 05/24/20 10:13) Rash Home Medications: Ambulatory Orders Medication Instructions Recorded Calcium Carbonate [Calcium] 500 mg PO DAILY 06/23/17 Multivitamin [Multiple Vitamins] 1 ea PO DAILY 06/23/17 aspirin 81 mg tablet,delayed 81 mg PO DAILY 08/12/19 release atorvastatin 40 mg tablet 40 mg PO DAILY 10/18/19 bupropion HCl 150 mg 24 hr tablet, 150 mg PO BID tab 10/18/19 extended release lisinopril 10 mg tablet 10 mg PO DAILY 10/18/19 tamsulosin 0.4 mg capsule 0.4 mg PO DAILY@1730 cap 10/18/19 blood sugar diagnostic See Rx Instructions .ROUTE 10/28/19 .MEDSUPPLY #100 ea lancets 33 gauge See Rx Instructions .ROUTE 10/28/19 .MEDSUPPLY #100 ea gabapentin 300 mg capsule 600 mg PO TIDCM cap 04/24/20 insulin regular hum U-500 conc 145 unit SC TID #27 ml 05/12/20 Linezolid 600 mg PO DAILY #7 tab 06/14/20 levoFLOXacin tablet [Levaquin 500 mg PO DAILY #7 tab 06/14/20 tablet] Maternal Family History: Family History (Last Reviewed 04/24/20 @ 15:[address] Juan Arteaga MD) Father Myocardial infarction Heart disease Mother Kidney disease Diabetes Sister Asthma Breast cancer Hypertension Brother Alcoholism Melanoma Family History: Diabetes, Renal Disease - on dialysis Paternal Family History: Family History (Last Reviewed 04/24/20 @ 15:[address] Juan Arteaga MD) Father Myocardial infarction Heart disease Mother Kidney disease Diabetes Sister Asthma Breast cancer Hypertension Brother Alcoholism Melanoma Family History: Heart Disease Sibling Family History: Family History (Last Reviewed 04/24/20 @ 15:[address] Juan Arteaga MD) Father Myocardial infarction Heart disease Mother Kidney disease Diabetes Sister Asthma Breast cancer Hypertension Brother Alcoholism Melanoma Family History: Cancer - breast cancer in his sister Smoking Status: Heavy Smoker (>10/day) Tobacco Use: Cigarettes Physical Exam Vital Signs Temp Pulse Resp BP 97.6 F L 68 18 149/74 H 06/22/20 00:36 06/22/20 00:36 06/22/20 00:36 06/22/20 00:36 General: Alert, Oriented x3, Cooperative, No apparent distress HEENT: Atraumatic, TM's Clear Lungs: Clear to auscultation, Normal air movement Cardiovascular: Regular rate, Regular Rhythm Psych/Mental Status: Normal Affect, Appropriate, Alert and oriented to time, place, person, mood and affect Assessment/Plan Treatment Course Number Treatment Course Number 1 Treatment # 32 HBO Diagnosis/Indication Diagnosis/Indication(s) for Left Diabetic Foot Ulcer Hyperbaric Therapy Classification - Mancilla Grade 2 Grading (Diabetic Ulcer) [] Classification - [place] Grade 2 Grading (Diabetic Ulcer) [] Classification - [place] Grade 3 Grading (Diabetic Ulcer) Diabetes - Detail Diabetes Diabetes Type II Left Extremity Ulcer, Other part of Foot
[2020-06-22 16:01] LABS: Bedside Glucose 114 mg/dL (70-110)
[2020-06-22 16:05] LABS: Bedside Glucose 152 mg/dL (70-110)
[2020-06-23 10:26] LABS: Bedside Glucose 205 mg/dL (70-110)
[2020-06-23 11:19] VITALS: BP 156/66; BP 162/66; PULSE 74; PULSE 89; RESP 16; RESP 18; TEMP 36.5; TEMP 36.6
--- NOTE | 2020-06-23 14:42 | PCM.HBO.PN ---
History of Present Illness Date of Service: 06/23/20 Presenting Chief Complaint: Diabetic left foot ulceration, Mancilla Grade 3, with infection GEN SIM is a 65 year old currently undergoing hyperbaric oxygen therapy for diabetic left foot infection, Mancilla grade 3. Progress: Today's session represents the 33rd session of hyperbaric oxygen therapy, of an expected 40 such treatments. Tolerance of hyperbaric oxygen therapy: Hyperbaric oxygen therapy was administered as per the facility's protocol. Hyperbaric oxygen therapy was administered for 90 minutes at 2 silas, with two 5-minute air breaks. Upon emergence from the hyperbaric oxygen chamber the patient had no complaints or complications. The patient's vital signs remained stable. The patient was discharged in good condition. His pre-and post- HBO blood sugars are recorded elsewhere. Past Medical History Chronic Problems (Last Reviewed 04/24/20 @ 15:[address] 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) History of transmetatarsal amputation of left foot (Chronic) Ulcer of right foot with fat layer exposed (Chronic) Obesity (Chronic) Tobacco abuse (Chronic) Osteomyelitis, unspecified (Chronic) Chronic ulcer of left foot with fat layer exposed (Chronic) Osteomyelitis of left foot (Chronic) Diabetic ulcer of left foot (Chronic) Other specified peripheral vascular diseases (Chronic) Delayed wound healing (Chronic) Difficulty in walking, not elsewhere classified (Chronic) 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) Tobacco abuse counseling (Chronic) Mixed hyperlipidemia (Chronic) Benign essential hypertension (Chronic) 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) Diabetes (Chronic) Type 2 diabetes mellitus (Chronic) Obstructive sleep apnea (Chronic) Uncontrolled diabetes mellitus (Chronic) Diabetic infection of left foot (Chronic) Osteomyelitis of great toe of left foot (Chronic) Morbid obesity due to excess calories (Chronic) Tobacco dependence due to cigarettes (Chronic) Diabetic neuropathy (Chronic) Hypertension (Chronic) 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) Allergies/Adverse Reactions: Allergies Sulfa (Sulfonamide Antibiotics) Allergy (Verified 05/24/20 10:13) Rash Home Medications: Ambulatory Orders Medication Instructions Recorded Calcium Carbonate [Calcium] 500 mg PO DAILY 06/23/17 Multivitamin [Multiple Vitamins] 1 ea PO DAILY 06/23/17 aspirin 81 mg tablet,delayed 81 mg PO DAILY 08/12/19 release atorvastatin 40 mg tablet 40 mg PO DAILY 10/18/19 bupropion HCl 150 mg 24 hr tablet, 150 mg PO BID tab 10/18/19 extended release lisinopril 10 mg tablet 10 mg PO DAILY 10/18/19 tamsulosin 0.4 mg capsule 0.4 mg PO DAILY@1730 cap 10/18/19 blood sugar diagnostic See Rx Instructions .ROUTE 10/28/19 .MEDSUPPLY #100 ea lancets 33 gauge See Rx Instructions .ROUTE 10/28/19 .MEDSUPPLY #100 ea gabapentin 300 mg capsule 600 mg PO TIDCM cap 04/24/20 insulin regular hum U-500 conc 145 unit SC TID #27 ml 05/12/20 Linezolid 600 mg PO DAILY #7 tab 06/14/20 levoFLOXacin tablet [Levaquin 500 mg PO DAILY #7 tab 06/14/20 tablet] Maternal Family History: Family History (Last Reviewed 04/24/20 @ 15:[address] Juan Arteaga MD) Father Myocardial infarction Heart disease Mother Kidney disease Diabetes Sister Asthma Breast cancer Hypertension Brother Alcoholism Melanoma Family History: Diabetes, Renal Disease - on dialysis Paternal Family History: Family History (Last Reviewed 04/24/20 @ 15:[address] Juan Arteaga MD) Father Myocardial infarction Heart disease Mother Kidney disease Diabetes Sister Asthma Breast cancer Hypertension Brother Alcoholism Melanoma Family History: Heart Disease Sibling Family History: Family History (Last Reviewed 04/24/20 @ 15:[address] Juan Arteaga MD) Father Myocardial infarction Heart disease Mother Kidney disease Diabetes Sister Asthma Breast cancer Hypertension Brother Alcoholism Melanoma Family History: Cancer - breast cancer in his sister Smoking Status: Heavy Smoker (>10/day) Tobacco Use: Cigarettes Alcohol: None Drugs: None Physical Exam Vital Signs Temp Pulse Resp BP 97.7 F L 89 16 156/66 H 06/23/20 11:19 06/23/20 11:19 06/23/20 11:19 06/23/20 11:19 General: Alert, Oriented x3, Cooperative, No apparent distress Psych/Mental Status: Normal Affect, Appropriate Assessment/Plan Active Problems (Last Reviewed 04/24/20 @ 15:[address] 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 Treatment Course Number Number of HBO Treatments 50 Ordered Treatment Course Number 1 Treatment # 33 Chamber # 2 Chamber Type Monoplace HBO Diagnosis/Indication Diagnosis/Indication(s) for Right Diabetic Foot Ulcer Hyperbaric Therapy Classification - Mancilla Grade 2 Grading (Diabetic Ulcer) [] Classification - [place] Grade 2 Grading (Diabetic Ulcer) [] Classification - [place] Grade 3 Grading (Diabetic Ulcer) Diabetes - Detail Diabetes Diabetes Type II Diabetes Control Uncontrolled Left Extremity Ulcer, Other part of Foot Treatment Plan MARTITA (Atmospheric Absolute) 2 Number of Minutes 90 Number of Air Breaks 2
[2020-06-26 08:05] LABS: Bedside Glucose 220 mg/dL (70-110)
--- NOTE | 2020-06-26 08:52 | HBO.PN.PCM_ITS ---
History of Present Illness Date of Service: 06/26/20 Presenting Chief Complaint: Diabetic left foot ulceration, Mancilla Grade 3, with infection. Right foot ulcers with recent infection GEN SIM is a 65 year old currently undergoing hyperbaric oxygen therapy for diabetic left foot infection, Mancilla grade 3. Progress: Today's session represents the 34th session of hyperbaric oxygen therapy, of an expected 40 such treatments. Tolerance of hyperbaric oxygen therapy: Hyperbaric oxygen therapy was a dministered as per the facility's protocol. Hyperbaric oxygen therapy was administered for 90 minutes at 2 silas, with two 5-minute air breaks. Upon emergence from the hyperbaric oxygen chamber the patient had no complaints or complications. The patient's vital signs remained stable. The patient was discharged in good condition. His pre-and post- HBO blood sugars are recorded elsewhere. Past Medical History Chronic Problems (Last Reviewed 04/24/20 @ 15:[address] 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) History of transmetatarsal amputation of left foot (Chronic) Ulcer of right foot with fat layer exposed (Chronic) Obesity (Chronic) Tobacco abuse (Chronic) Osteomyelitis, unspecified (Chronic) Chronic ulcer of left foot with fat layer exposed (Chronic) Osteomyelitis of left foot (Chronic) Diabetic ulcer of left foot (Chronic) Other specified peripheral vascular diseases (Chronic) Delayed wound healing (Chronic) Difficulty in walking, not elsewhere classified (Chronic) 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) Tobacco abuse counseling (Chronic) Mixed hyperlipidemia (Chronic) Benign essential hypertension (Chronic) 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) Diabetes (Chronic) Type 2 diabetes mellitus (Chronic) Obstructive sleep apnea (Chronic) Uncontrolled diabetes mellitus (Chronic) Diabetic infection of left foot (Chronic) Osteomyelitis of great toe of left foot (Chronic) Morbid obesity due to excess calories (Chronic) Tobacco dependence due to cigarettes (Chronic) Diabetic neuropathy (Chronic) Hypertension (Chronic) 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) Allergies/Adverse Reactions: Allergies Sulfa (Sulfonamide Antibiotics) Allergy (Verified 05/24/20 10:13) Rash Home Medications: Ambulatory Orders Medication Instructions Recorded Calcium Carbonate [Calcium] 500 mg PO DAILY 06/23/17 Multivitamin [Multiple Vitamins] 1 ea PO DAILY 06/23/17 aspirin 81 mg tablet,delayed 81 mg PO DAILY 08/12/19 release atorvastatin 40 mg tablet 40 mg PO DAILY 10/18/19 bupropion HCl 150 mg 24 hr tablet, 150 mg PO BID tab 10/18/19 extended release lisinopril 10 mg tablet 10 mg PO DAILY 10/18/19 tamsulosin 0.4 mg capsule 0.4 mg PO DAILY@1730 cap 10/18/19 blood sugar diagnostic See Rx Instructions .ROUTE 10/28/19 .MEDSUPPLY #100 ea lancets 33 gauge See Rx Instructions .ROUTE 10/28/19 .MEDSUPPLY #100 ea gabapentin 300 mg capsule 600 mg PO TIDCM cap 04/24/20 insulin regular hum U-500 conc 145 unit SC TID #27 ml 05/12/20 Linezolid 600 mg PO DAILY #7 tab 06/14/20 levoFLOXacin tablet [Levaquin 500 mg PO DAILY #7 tab 06/14/20 tablet] Maternal Family History: Family History (Last Reviewed 04/24/20 @ 15:[address] Juan Arteaga MD) Father Myocardial infarction Heart disease Mother Kidney disease Diabetes Sister Asthma Breast cancer Hypertension Brother Alcoholism Melanoma Family History: Diabetes, Renal Disease - on dialysis Paternal Family History: Family History (Last Reviewed 04/24/20 @ 15:[address] Juan Arteaga MD) Father Myocardial infarction Heart disease Mother Kidney disease Diabetes Sister Asthma Breast cancer Hypertension Brother Alcoholism Melanoma Family History: Heart Disease Sibling Family History: Family History (Last Reviewed 04/24/20 @ 15:[address] Juan Arteaga MD) Father Myocardial infarction Heart disease Mother Kidney disease Diabetes Sister Asthma Breast cancer Hypertension Brother Alcoholism Melanoma Family History: Cancer - breast cancer in his sister Smoking Status: Heavy Smoker (>10/day) Tobacco Use: Cigarettes Alcohol: None Drugs: None Physical Exam Vital Signs Temp Pulse Resp BP 97.7 F L 89 16 156/66 H 06/23/20 11:19 06/23/20 11:19 06/23/20 11:19 06/23/20 11:19 General: Alert, Oriented x3, Cooperative, No apparent distress HEENT: Atraumatic, TM's Clear Lungs: Clear to auscultation, Normal air movement Cardiovascular: Regular rate, Regular Rhythm Psych/Mental Status: Normal Affect, Appropriate, Alert and oriented to time, place, person, mood and affect Assessment/Plan Treatment Course Number Number of HBO Treatments 50 Ordered Treatment Course Number 1 Treatment # 34 Chamber # 2 Chamber Type Monoplace HBO Diagnosis/Indication Diagnosis/Indication(s) for Right Diabetic Foot Ulcer Hyperbaric Therapy Classification - [place]anc[place] Grade 2 Grading (Diabetic Ulcer) [] Classification - [place] Grade 2 Grading (Diabetic Ulcer) [] Classification - [place] Grade 3 Grading (Diabetic Ulcer) Diabetes - Detail Diabetes Diabetes Type II Diabetes Control Uncontrolled Left Extremity Ulcer, Other part of Foot Treatment Plan MARTITA (Atmospheric Absolute) 2 Number of Minutes 90 Number of Air Breaks 2
[2020-06-26 09:22] VITALS: BP 157/79; BP 158/76; PULSE 74; PULSE 84; RESP 18; TEMP 36.2; TEMP 36.4
[2020-06-26 10:45] LABS: Bedside Glucose 171 mg/dL (70-110)
[2020-06-27 09:05] LABS: Bedside Glucose 209 mg/dL (70-110)
[2020-06-27 10:16] LABS: Bedside Glucose 148 mg/dL (70-110)
[2020-06-27 10:20] VITALS: BP 144/70; BP 151/70; PULSE 71; PULSE 92; RESP 16; TEMP 35.9; TEMP 36.3
--- NOTE | 2020-06-27 11:34 | HBO.PN.PCM_ITS ---
History of Present Illness Date of Service: 06/27/20 Presenting Chief Complaint: Diabetic left foot ulceration, [place] Grade 3, with infection. Right foot ulcers with recent infection GEN SIM is a 65 year old currently undergoing hyperbaric oxygen therapy for diabetic left foot infection, [place] grade 3. Progress: Today's session represents the 35th session of hyperbaric oxygen therapy, of an expected 40 such treatments. Tolerance of hyperbaric oxygen therapy: Hyperbaric oxygen therapy was a dministered as per the facility's protocol. Hyperbaric oxygen therapy was administered for 90 minutes at 2 silas, with two 5-minute air breaks. Upon emergence from the hyperbaric oxygen chamber the patient had no complaints or complications. The patient's vital signs remained stable. The patient was discharged in good condition. His pre-and post- HBO blood sugars are recorded elsewhere. Past Medical History Chronic Problems (Last Reviewed 04/24/20 @ 15:[address] 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) History of transmetatarsal amputation of left foot (Chronic) Ulcer of right foot with fat layer exposed (Chronic) Obesity (Chronic) Tobacco abuse (Chronic) Osteomyelitis, unspecified (Chronic) Chronic ulcer of left foot with fat layer exposed (Chronic) Osteomyelitis of left foot (Chronic) Diabetic ulcer of left foot (Chronic) Other specified peripheral vascular diseases (Chronic) Delayed wound healing (Chronic) Difficulty in walking, not elsewhere classified (Chronic) 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) Tobacco abuse counseling (Chronic) Mixed hyperlipidemia (Chronic) Benign essential hypertension (Chronic) 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) Diabetes (Chronic) Type 2 diabetes mellitus (Chronic) Obstructive sleep apnea (Chronic) Uncontrolled diabetes mellitus (Chronic) Diabetic infection of left foot (Chronic) Osteomyelitis of great toe of left foot (Chronic) Morbid obesity due to excess calories (Chronic) Tobacco dependence due to cigarettes (Chronic) Diabetic neuropathy (Chronic) Hypertension (Chronic) 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) Allergies/Adverse Reactions: Allergies Sulfa (Sulfonamide Antibiotics) Allergy (Verified 05/24/20 10:13) Rash Home Medications: Ambulatory Orders Medication Instructions Recorded Calcium Carbonate [Calcium] 500 mg PO DAILY 06/23/17 Multivitamin [Multiple Vitamins] 1 ea PO DAILY 06/23/17 aspirin 81 mg tablet,delayed 81 mg PO DAILY 08/12/19 release atorvastatin 40 mg tablet 40 mg PO DAILY 10/18/19 bupropion HCl 150 mg 24 hr tablet, 150 mg PO BID tab 10/18/19 extended release lisinopril 10 mg tablet 10 mg PO DAILY 10/18/19 tamsulosin 0.4 mg capsule 0.4 mg PO DAILY@1730 cap 10/18/19 blood sugar diagnostic See Rx Instructions .ROUTE 10/28/19 .MEDSUPPLY #100 ea lancets 33 gauge See Rx Instructions .ROUTE 10/28/19 .MEDSUPPLY #100 ea gabapentin 300 mg capsule 600 mg PO TIDCM cap 04/24/20 insulin regular hum U-500 conc 145 unit SC TID #27 ml 05/12/20 Linezolid 600 mg PO DAILY #7 tab 06/14/20 levoFLOXacin tablet [Levaquin 500 mg PO DAILY #7 tab 06/14/20 tablet] Maternal Family History: Family History (Last Reviewed 04/24/20 @ 15:[address] Juan Arteaga MD) Father Myocardial infarction Heart disease Mother Kidney disease Diabetes Sister Asthma Breast cancer Hypertension Brother Alcoholism Melanoma Family History: Diabetes, Renal Disease - on dialysis Paternal Family History: Family History (Last Reviewed 04/24/20 @ 15:[address] Juan Arteaga MD) Father Myocardial infarction Heart disease Mother Kidney disease Diabetes Sister Asthma Breast cancer Hypertension Brother Alcoholism Melanoma Family History: Heart Disease Sibling Family History: Family History (Last Reviewed 04/24/20 @ 15:[address] Juan Arteaga MD) Father Myocardial infarction Heart disease Mother Kidney disease Diabetes Sister Asthma Breast cancer Hypertension Brother Alcoholism Melanoma Family History: Cancer - breast cancer in his sister Smoking Status: Heavy Smoker (>10/day) Tobacco Use: Cigarettes Alcohol: None Drugs: None Physical Exam Vital Signs Temp Pulse Resp BP 96.7 F L 92 16 144/70 H 06/27/20 10:20 06/27/20 10:20 06/27/20 10:20 06/27/20 10:20 General: Alert, Oriented x3, Cooperative, No apparent distress, Well developed, Well nourished HEENT: Atraumatic, PERRLA, EOMI, Normocephalic Lungs: Normal air movement Psych/Mental Status: Normal Affect, Appropriate, Alert and oriented to time, place, person, mood and affect Assessment/Plan The patient appears to be tolerating hyperbaric oxygen therapy well, which will be continued as per the patient's medical plan. Treatment Course Number Number of HBO Treatments 50 Ordered Treatment Course Number 1 Treatment # 35 Chamber # 2 Chamber Type Monoplace HBO Diagnosis/Indication Diagnosis/Indication(s) for Right Diabetic Foot Ulcer Hyperbaric Therapy Classification - [place] Grade 2 Grading (Diabetic Ulcer) [] Classification - [place] Grade 2 Grading (Diabetic Ulcer) [] Classification - [place] Grade 3 Grading (Diabetic Ulcer) Diabetes - Detail Diabetes Diabetes Type II Diabetes Control Uncontrolled Left Extremity Ulcer, Other part of Foot Treatment Plan MARTITA (Atmospheric Absolute) 2 Number of Minutes 90 Number of Air Breaks 2
[2020-06-28 10:41] VITALS: BP 154/71; PULSE 82; RESP 18; TEMP 37; BMI 42.8
[2020-06-28 11:26] VITALS: BP 153/69; PULSE 77
--- NOTE | 2020-06-28 12:48 | PCM.WC.PN ---
(1) Chronic ulcer of left foot with fat layer exposed Status: Chronic Current Visit: Yes Code(s): L97.522 - Non-pressure chronic ulcer of other part of left foot with fat layer exposed (2) Delayed wound healing Status: Chronic Current Visit: Yes Code(s): T14.8XXD - Other injury of unspecified body region, subsequent encounter (3) Diabetes Status: Chronic Current Visit: Yes Code(s): E11.9 - Type 2 diabetes mellitus without complications (4) Diabetic neuropathy Status: Chronic Current Visit: Yes Qualifiers: Code(s): E11.40 - Type 2 diabetes mellitus with diabetic neuropathy, unspecified (5) Other specified peripheral vascular diseases Status: Chronic Current Visit: Yes Code(s): I73.89 - Other specified peripheral vascular diseases (6) 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 Right foot ulcers with recent infection History of Wound: This 65-year-old male with multiple comorbidities was seen today for left foot ulcer. His left foot ulcer onset was 12-07-2019. He is previously known to me and had a left transmetatarsal amputation performed previously. That has since been healed. He had a total contact cast applied last week and kept this clean, dry, and intact. He denies diarrhea, rash, fever, chill, nausea, vomiting. He also continues hyperbaric oxygen therapy. He was also seen today for multiple right foot ulcers and he has been taking antibiotics as recommended by infectious disease. He relates his foot is doing better and he tries to offload. Progress of Wound: Subbing for regular doctor. Right lateral plantar and right medial ankle all healing well. We will continue with same treatment left plantar medial foot improving will continue with epi fix for 6 and a total contact cast which she is tolerating well - Physical Exam Vital Signs Temp Pulse Resp BP 98.6 F 77 18 153/69 H 06/28/20 10:41 06/28/20 11:26 06/28/20 10:41 06/28/20 11:26 General: Oriented x3, Cooperative, Well developed HEENT: Atraumatic, PERRLA Oral: Moist Mucosa Neck: Supple, No JVD Lungs: Clear to auscultation, Normal air movement Cardiovascular: Regular rate, Regular Rhythm Abdomen: Bowel Sounds Present, Soft, Non Tender, No Hepato-splenomegaly Extremities: No clubbing, No edema, - - Wounds to bilateral lower legs Wound Measurements and Assessment WC - Nurse 1 - General Ulcer Measurement Start: 06/22/20 11:33 Freq: Status: Active Protocol: Activity Type Activity Date Activity User E-Sign Co-Sign Detail Recorded Client Recorded Date Recorded By Document 06/28/20 10:27 RB [id number] 06/28/20 10:41 RB 06/28/20 10:27 Wound Center Nurse 1 [Ulcer Assessment] #9 right lateral plantar -Combined with other wound No -Current Size (cm) - Length 2 -Current Size (cm) - Width 2.3 -Current Size (cm) - Depth 0.6 -Total Square Cm 4.6 -Tunneling No -Undermining/Tunneling No -Circular Undermining No -Exudate Amt Medium -Exudate Type Serosanguineous -Wound Margin Thickened & Rolled Under -Granulation Amt Medium (34-66%) -Granulation Quality [place],Red -Slough/Fibrin Yes -Necrosis Amt Small (1-33%) -Necrotic Tissue Type Adherent Slough -Structure Exposed N/A -Texture (Maria M-wound Skin Appearance) Assessed,Callus -Moisture (Maria M-wound Skin Appearance Assessed ) -Color (Maria M-wound Skin Appearance) Assessed -Temperature (Maria M-wound Skin No Abnormality Appearance) (Pt Warm) -Tenderness on Palpation (Maria M-wound No Skin Appearance) -Ulcer Cleansing Wound Cleanser -Foul Odor after Cleansing No -Anesthetic Used 4% Lidocaine Solution #7 right 2nd toe -Combined with other wound No -Current Size (cm) - Length 0.1 -Current Size (cm) - Width 0.1 -Current Size (cm) - Depth 0.1 -Total Square Cm 0.01 -Tunneling No -Undermining/Tunneling No -Circular Undermining No -Exudate Amt Small -Exudate Type Serosanguineous -Wound Margin Flat & Intact -Granulation Amt Medium (34-66%) -Granulation Quality [place] -Slough/Fibrin Yes -Necrosis Amt Small (1-33%) -Necrotic Tissue Type Adherent Slough -Structure Exposed N/A -Texture (Maria M-wound Skin Appearance) Assessed -Moisture (Maria M-wound Skin Appearance Assessed ) -Color (Maria M-wound Skin Appearance) Assessed -Temperature (Maria M-wound Skin No Abnormality Appearance) (Pt Warm) -Tenderness on Palpation (Maria M-wound No Skin Appearance) -Ulcer Cleansing Wound Cleanser -Foul Odor after Cleansing No -Anesthetic Used 4% Lidocaine Solution #6 right lateral base great toe -Combined with other wound No -Current Size (cm) - Length 0.1 -Current Size (cm) - Width 0.1 -Current Size (cm) - Depth 0.1 -Total Square Cm 0.01 -Tunneling No -Undermining/Tunneling No -Circular Undermining No -Exudate Amt None Present -Wound Margin Flat & Intact -Granulation Amt Medium (34-66%) -Granulation Quality [place] -Slough/Fibrin Yes -Necrosis Amt Small (1-33%) -Necrotic Tissue Type Adherent Slough -Structure Exposed N/A -Texture (Maria M-wound Skin Appearance) Assessed -Moisture (Maria M-wound Skin Appearance Assessed ) -Color (Maria M-wound Skin Appearance) Assessed -Temperature (Maria M-wound Skin No Abnormality Appearance) (Pt Warm) -Tenderness on Palpation (Maria M-wound No Skin Appearance) -Ulcer Cleansing Wound Cleanser -Foul Odor after Cleansing No -Anesthetic Used 4% Lidocaine Solution #5 right great toe cluster -Combined with other wound No -Current Size (cm) - Length 0.1 -Current Size (cm) - Width 0.1 -Current Size (cm) - Depth 0.1 -Total Square Cm 0.01 -Tunneling No -Undermining/Tunneling No -Circular Undermining No -Wound Margin Flat & Intact -Granulation Amt Medium (34-66%) -Granulation Quality [place] -Slough/Fibrin Yes -Necrosis Amt Small (1-33%) -Necrotic Tissue Type Adherent Slough -Structure Exposed N/A -Texture (Maria M-wound Skin Appearance) Assessed -Moisture (Maria M-wound Skin Appearance Assessed ) -Color (Maria M-wound Skin Appearance) Assessed -Temperature (Maria M-wound Skin No Abnormality Appearance) (Pt Warm) -Tenderness on Palpation (Maria M-wound No Skin Appearance) -Ulcer Cleansing Wound Cleanser -Foul Odor after Cleansing No -Anesthetic Used 4% Lidocaine Solution #4 right medial dorsal cluster -Combined with other wound No -Current Size (cm) - Length 0.1 -Current Size (cm) - Width 0.1 -Current Size (cm) - Depth 0.1 -Total Square Cm 0.01 -Tunneling No -Undermining/Tunneling No -Circular Undermining No -Exudate Amt Small -Exudate Type Serosanguineous -Wound Margin Flat & Intact -Granulation Amt Medium (34-66%) -Granulation Quality [place] -Slough/Fibrin Yes -Necrosis Amt Small (1-33%) -Necrotic Tissue Type Adherent Slough -Structure Exposed N/A -Texture (Maria M-wound Skin Appearance) Assessed -Moisture (Maria M-wound Skin Appearance Assessed ) -Color (Maria M-wound Skin Appearance) Assessed -Temperature (Maria M-wound Skin No Abnormality Appearance) (Pt Warm) -Tenderness on Palpation (Maria M-wound No Skin Appearance) -Ulcer Cleansing Wound Cleanser -Foul Odor after Cleansing No -Anesthetic Used 4% Lidocaine Solution #3 right medial ankle -Current Size (cm) - Length 2.8 -Current Size (cm) - Width 1.8 -Current Size (cm) - Depth 0.1 -Total Square Cm 5.04 -Tunneling No -Undermining/Tunneling No -Exudate Amt Small -Exudate Type Serosanguineous -Wound Margin Flat & Intact -Granulation Amt Medium (34-66%) -Granulation Quality [place] -Slough/Fibrin Yes -Necrosis Amt Large (67-100%) -Necrotic Tissue Type Adherent Slough -Structure Exposed N/A -Texture (Maria M-wound Skin Appearance) Assessed -Moisture (Maria M-wound Skin Appearance Assessed ) -Color (Maria M-wound Skin Appearance) Assessed -Temperature (Maria M-wound Skin No Abnormality Appearance) (Pt Warm) -Tenderness on Palpation (Maria M-wound No Skin Appearance) -Ulcer Cleansing Wound Cleanser -Foul Odor after Cleansing No -Anesthetic Used 4% Lidocaine Solution #1 Left Plantar medial -Combined with other wound No -Current Size (cm) - Length 1.6 -Current Size (cm) - Width 1.5 -Current Size (cm) - Depth 0.5 -Total Square Cm 2.40 -Tunneling No -Undermining/Tunneling No -Circular Undermining No -Exudate Amt Medium -Exudate Type Serosanguineous -Wound Margin Thickened & Rolled Under -Granulation Amt Medium (34-66%) -Granulation Quality [place] -Slough/Fibrin Yes -Necrosis Amt Medium (34-66%) -Necrotic Tissue Type Adherent Slough -Structure Exposed N/A -Texture (Maria M-wound Skin Appearance) Assessed -Moisture (Maria M-wound Skin Appearance Assessed ) -Color (Maria M-wound Skin Appearance) Assessed -Temperature (Maria M-wound Skin No Abnormality Appearance) (Pt Warm) -Tenderness on Palpation (Maria M-wound No Skin Appearance) -Ulcer Cleansing Wound Cleanser -Foul Odor after Cleansing No -Anesthetic Used 4% Lidocaine Solution WC - Nurse 2 - General Ulcer CM Notes Start: 06/22/20 11:33 Freq: Status: Active Protocol: Activity Type Activity Date Activity User E-Sign Co-Sign Detail Recorded Client Recorded Date Recorded By Document 06/28/20 11:00 MW [id number] 06/28/20 11:16 MW 06/28/20 11:00 Wound Center Nurse 2 [Procedure/Treatment] #9 right lateral plantar -Time 11:01 -Correct Patient Yes -Correct Side, Site, Position Yes -Correct Procedure Yes -Procedure Performed Yes -Type of Procedure Debridement -Clinical Debridement Subcutaneous -Tissue Removed Subcutaneous -Post Debridement (cm) - Length 2.0 -Post Debridement (cm) - Width 2.0 -Post Debridement (cm) - Depth 0.3 -Total Square (Post) (cm) 4.00 -Area of Debridement (cm) - Length 2.0 -Area of Debridement (cm) - Width 2.0 -Total Square (Area) (cm) 4.00 -Tunneling No -Undermining/Tunneling No -Circular Undermining No -Wound/Ulcer Outcome Not Healed -Ulcer Cleansing Rinsed/ Irrigated with Saline -Foul Odor after Cleansing No -Bioengineered Tissue No -Bleeding Controlled with Pressure -Offloading No -Debridement - Subq, 1st 20sq cm Yes #7 right 2nd toe -Time 11:06 -Correct Patient Yes -Correct Side, Site, Position Yes -Correct Procedure Yes -Procedure Performed No -Post Debridement (cm) - Length 0 -Post Debridement (cm) - Width 0 -Post Debridement (cm) - Depth 0 -Total Square (Post) (cm) 0 -Tunneling No -Undermining/Tunneling No -Circular Undermining No -Wound/Ulcer Outcome Healed- Epithelialized -Bleeding Controlled with NA #6 right lateral base great toe -Time 11:07 -Correct Patient Yes -Correct Side, Site, Position Yes -Correct Procedure Yes -Procedure Performed No -Post Debridement (cm) - Length 0 -Post Debridement (cm) - Width 0 -Post Debridement (cm) - Depth 0 -Total Square (Post) (cm) 0 -Wound/Ulcer Outcome Healed- Epithelialized #5 right great toe cluster -Time 11:08 -Correct Patient Yes -Correct Side, Site, Position Yes -Correct Procedure Yes -Procedure Performed No -Post Debridement (cm) - Length 0 -Post Debridement (cm) - Width 0 -Post Debridement (cm) - Depth 0 -Total Square (Post) (cm) 0 -Wound/Ulcer Outcome Healed- Epithelialized #4 right medial dorsal cluster -Time 11:08 -Correct Patient Yes -Correct Side, Site, Position Yes -Correct Procedure Yes -Procedure Performed No -Post Debridement (cm) - Length 0 -Post Debridement (cm) - Width 0 -Post Debridement (cm) - Depth 0 -Total Square (Post) (cm) 0 -Wound/Ulcer Outcome Healed- Epithelialized #3 right medial ankle -Time 11:08 -Correct Patient Yes -Correct Side, Site, Position Yes -Correct Procedure Yes -Procedure Performed Yes -Type of Procedure Debridement -Clinical Debridement Subcutaneous -Tissue Removed Subcutaneous -Post Debridement (cm) - Length 2.8 -Post Debridement (cm) - Width 1.6 -Post Debridement (cm) - Depth 0.2 -Total Square (Post) (cm) 4.48 -Area of Debridement (cm) - Length 2.8 -Area of Debridement (cm) - Width 1.6 -Total Square (Area) (cm) 4.48 -Tunneling No -Undermining/Tunneling No -Circular Undermining No -Wound/Ulcer Outcome Not Healed -Ulcer Cleansing Rinsed/ Irrigated with Saline -Foul Odor after Cleansing No -Bioengineered Tissue No -Bleeding Controlled with Pressure -Offloading No -Debridement - Subq, 1st 20sq cm No #1 Left Plantar medial -Time 11:05 -Correct Patient Yes -Correct Side, Site, Position Yes -Correct Procedure Yes -Procedure Performed Yes -Type of Procedure Debridement -Clinical Debridement Subcutaneous -Tissue Removed Subcutaneous -Post Debridement (cm) - Length 2.2 -Post Debridement (cm) - Width 2.2 -Post Debridement (cm) - Depth 4 -Total Square (Post) (cm) 4.84 -Area of Debridement (cm) - Length 2.2 -Area of Debridement (cm) - Width 2.2 -Total Square (Area) (cm) 4.84 -Tunneling No -Undermining/Tunneling No -Circular Undermining No -Wound/Ulcer Outcome Not Healed -Ulcer Cleansing Rinsed/ Irrigated with Saline -Foul Odor after Cleansing No -Bioengineered Tissue Yes -Type of Bioengineered Tissue Epifix -Expiration Date 02/20/25 -Product Lot Number [id number] -Percent Used 100 -Saline Lot Number [id number] -Bleeding Controlled with Pressure -Offloading No -Debridement - Subq, 1st 20sq cm No -Apply Skin Sub - 1st 25 sq cm - Feet 1 -Epifix (per sq cm) 4 [See Physician Procedure note for Specifics] Pain Scale: 0-10 Numeric [Pain] -Is Patient Pain Free? Yes - Nurse 3 - General Ulcer D/C NN Start: 06/22/20 11:33 Freq: Status: Active Protocol: Activity Type Activity Date Activity User E-Sign Co-Sign Detail Recorded Client Recorded Date Recorded By Document 06/27/20 10:20 [id number] 06/27/20 10:25 Document 06/28/20 11:26 DL [id number] 06/28/20 11:31 DL 06/27/20 06/28/20 10:20 11:26 Wound Care Nurse 3 [Wound Dressing] #9 right lateral plantar -Ulcer Cleansing Wound Cleanser -Foul Odor after Cleansing No -Primary Dressing Applied Aquacel AG 4x4 -Primary Dressing Covered/Secured Dry Gauze & with Roll Gauze, Secured with Tape -Aquacel AG 4x4 1 #3 right medial ankle -Ulcer Cleansing Wound Cleanser -Foul Odor after Cleansing No -Other Dressing Aguacel AG -Primary Dressing Covered/Secured Dry Gauze & with Roll Gauze, Secured with Tape #1 Left Plantar medial -Ulcer Cleansing Wound Cleanser -Foul Odor after Cleansing No -Other Dressing Epifix -Primary Dressing Covered/Secured Dry Gauze & with Roll Gauze, Secured with Tape -Other Covering TCC Undercasting Size 3 [Post Procedure Tolerated] -Treatment Response Procedure Tolerated Well Vital Signs [Pulse] -Pulse Rate (60-100 beats/min) 77 -Pulse Location Monitor [Blood Pressure] -Blood Pressure (90/60-120/80 mm Hg) 153/69 H -Blood Pressure Mean (mm Hg) 97 -Source Monitor Pain Scale: 0-10 Numeric [Pain] -Is Patient Pain Free? Yes Yes WC - Visit Discharge [Visit Discharge Information] -Discharge Condition Stable Stable -Ambulatory Status Ambulatory Ambulatory -Transportation Private Auto -Medication Reconcilliation completed Yes & provided to patient/care provider -Clinical Summary of Care Provided Yes -Notes: Personal transport thru his insurance. [Facility Notification] -Facility Type Home Health -Orders Sent Yes Musculoskeletal: No Tenderness to Palpation of Joints or Extremities Lymphatic: No Cervical, Supraclavicular, or Inguinal Adenopathy Neurological: Cranial nerves II-XII grossly intact, Neuro grossly intact Psych/Mental Status: Normal Affect, Appropriate, Alert and oriented to time, place, person, mood and affect Debridement Note Post-Debridement Measurements/Treatment WC - Nurse 2 - General Ulcer CM Notes Start: 06/22/20 11:33 Freq: Status: Active Protocol: Activity Type Activity Date Activity User E-Sign Co-Sign Detail Recorded Client Recorded Date Recorded By Document 06/28/20 11:00 MW [id number] 06/28/20 11:16 MW 06/28/20 11:00 Wound Center Nurse 2 #9 right lateral plantar -Time 11:01 -Correct Patient Yes -Correct Side, Site, Position Yes -Correct Procedure Yes -Procedure Performed Yes -Type of Procedure Debridement -Clinical Debridement Subcutaneous -Tissue Removed Subcutaneous -Post Debridement (cm) - Length 2.0 -Post Debridement (cm) - Width 2.0 -Post Debridement (cm) - Depth 0.3 -Total Square (Post) (cm) 4.00 -Area of Debridement (cm) - Length 2.0 -Area of Debridement (cm) - Width 2.0 -Total Square (Area) (cm) 4.00 -Tunneling No -Undermining/Tunneling No -Circular Undermining No -Wound/Ulcer Outcome Not Healed -Ulcer Cleansing Rinsed/ Irrigated with Saline -Foul Odor after Cleansing No -Bioengineered Tissue No -Bleeding Controlled with Pressure -Offloading No -Debridement - Subq, 1st 20sq cm Yes #7 right 2nd toe -Time 11:06 -Correct Patient Yes -Correct Side, Site, Position Yes -Correct Procedure Yes -Procedure Performed No -Post Debridement (cm) - Length 0 -Post Debridement (cm) - Width 0 -Post Debridement (cm) - Depth 0 -Total Square (Post) (cm) 0 -Tunneling No -Undermining/Tunneling No -Circular Undermining No -Wound/Ulcer Outcome Healed- Epithelialized -Bleeding Controlled with NA #6 right lateral base great toe -Time 11:07 -Correct Patient Yes -Correct Side, Site, Position Yes -Correct Procedure Yes -Procedure Performed No -Post Debridement (cm) - Length 0 -Post Debridement (cm) - Width 0 -Post Debridement (cm) - Depth 0 -Total Square (Post) (cm) 0 -Wound/Ulcer Outcome Healed- Epithelialized #5 right great toe cluster -Time 11:08 -Correct Patient Yes -Correct Side, Site, Position Yes -Correct Procedure Yes -Procedure Performed No -Post Debridement (cm) - Length 0 -Post Debridement (cm) - Width 0 -Post Debridement (cm) - Depth 0 -Total Square (Post) (cm) 0 -Wound/Ulcer Outcome Healed- Epithelialized #4 right medial dorsal cluster -Time 11:08 -Correct Patient Yes -Correct Side, Site, Position Yes -Correct Procedure Yes -Procedure Performed No -Post Debridement (cm) - Length 0 -Post Debridement (cm) - Width 0 -Post Debridement (cm) - Depth 0 -Total Square (Post) (cm) 0 -Wound/Ulcer Outcome Healed- Epithelialized #3 right medial ankle -Time 11:08 -Correct Patient Yes -Correct Side, Site, Position Yes -Correct Procedure Yes -Procedure Performed Yes -Type of Procedure Debridement -Clinical Debridement Subcutaneous -Tissue Removed Subcutaneous -Post Debridement (cm) - Length 2.8 -Post Debridement (cm) - Width 1.6 -Post Debridement (cm) - Depth 0.2 -Total Square (Post) (cm) 4.48 -Area of Debridement (cm) - Length 2.8 -Area of Debridement (cm) - Width 1.6 -Total Square (Area) (cm) 4.48 -Tunneling No -Undermining/Tunneling No -Circular Undermining No -Wound/Ulcer Outcome Not Healed -Ulcer Cleansing Rinsed/ Irrigated with Saline -Foul Odor after Cleansing No -Bioengineered Tissue No -Bleeding Controlled with Pressure -Offloading No -Debridement - Subq, 1st 20sq cm No #1 Left Plantar medial -Time 11:05 -Correct Patient Yes -Correct Side, Site, Position Yes -Correct Procedure Yes -Procedure Performed Yes -Type of Procedure Debridement -Clinical Debridement Subcutaneous -Tissue Removed Subcutaneous -Post Debridement (cm) - Length 2.2 -Post Debridement (cm) - Width 2.2 -Post Debridement (cm) - Depth 4 -Total Square (Post) (cm) 4.84 -Area of Debridement (cm) - Length 2.2 -Area of Debridement (cm) - Width 2.2 -Total Square (Area) (cm) 4.84 -Tunneling No -Undermining/Tunneling No -Circular Undermining No -Wound/Ulcer Outcome Not Healed -Ulcer Cleansing Rinsed/ Irrigated with Saline -Foul Odor after Cleansing No -Bioengineered Tissue Yes -Type of Bioengineered Tissue Epifix -Expiration Date 02/20/25 -Product Lot Number [id number] -Percent Used 100 -Saline Lot Number [id number] -Bleeding Controlled with Pressure -Offloading No -Debridement - Subq, 1st 20sq cm No -Apply Skin Sub - 1st 25 sq cm - Feet 1 -Epifix (per sq cm) 4 Pain Scale: 0-10 Numeric Is Patient Pain Free? Yes - Nurse 3 - General Ulcer D/C NN Start: 06/22/20 11:33 Freq: Status: Active Protocol: Activity Type Activity Date Activity User E-Sign Co-Sign Detail Recorded Client Recorded Date Recorded By Document 06/23/20 11:19 CASSY [id number] 06/23/20 11:25 JF Document 06/27/20 10:20 JF [id number] 06/27/20 10:25 JF Document 06/28/20 11:26 DL [id number] 06/28/20 11:31 DL 06/23/20 06/27/20 06/28/20 11:19 10:20 11:26 Wound Care Nurse 3 #9 right lateral plantar -Ulcer Cleansing Wound Cleanser -Foul Odor after Cleansing No -Primary Dressing Applied Aquacel AG 4x4 -Primary Dressing Covered/Secured with Dry Gauze & Roll Gauze, Secured with Tape -Aquacel AG 4x4 1 #3 right medial ankle -Ulcer Cleansing Wound Cleanser -Foul Odor after Cleansing No -Other Dressing Aguacel AG -Primary Dressing Covered/Secured with Dry Gauze & Roll Gauze, Secured with Tape #1 Left Plantar medial -Ulcer Cleansing Wound Cleanser -Foul Odor after Cleansing No -Other Dressing Epifix -Primary Dressing Covered/Secured with Dry Gauze & Roll Gauze, Secured with Tape -Other Covering TCC Undercasting Size 3 Treatment Response Procedure Tolerated Well Vital Signs Pulse Rate (60-100 beats/min) 77 Pulse Location Monitor Blood Pressure (90/60-120/80 mm Hg) 153/69 H Blood Pressure Mean (mm Hg) 97 Source Monitor Pain Scale: 0-10 Numeric Is Patient Pain Free? Yes Yes Yes WC - Visit Discharge Discharge Condition Stable Stable Stable Ambulatory Status Ambulatory Ambulatory Ambulatory Transportation private Private Auto transportation Medication Reconcilliation completed & Yes Yes provided to patient/care provider Clinical Summary of Care Provided Yes Yes Notes: Personal transport thru his insurance. Facility Type Home Health Orders Sent Yes Wound debrided: Right lateral plantar Type of Debridement: Excisional debridement Anesthesia Used: 5% Lidocaine Gel Depth: Down to and including healthy tissue Percentage of wound debrided: 100 Instrument Used: 7mm curette Tissue Removed: Fibrin and devitalized tissue Severity: Limited To Skin Breakdown Amount of bleeding with debridement: Mild Bleeding Controlled with: Compression and gauze Patient tolerated procedure well - Additional Wound Wound debrided: Medial ankle Laterality: Right Type of Debridement: Excisional debridement Anesthesia Used: 5% Lidocaine Gel Depth: Down to and including healthy tissue, in the subcutaneous layer Percentage of wound debrided: 100 Instrument Used: 7mm curette Tissue Removed: Fibrin and slough Severity: Limited To Skin Breakdown Amount of bleeding with debridement: Mild Bleeding Controlled with: Compression and gauze Patient tolerated procedure: Patient tolerated procedure well - Additional Wound Wound debrided: Left plantar medial foot Type of Debridement: Excisional debridement Anesthesia Used: 5% Lidocaine Gel Depth: Down to and including healthy tissue, in the subcutaneous layer Percentage of wound debrided: 100 Instrument Used: 7mm curette Tissue Removed: Fibrin and callus Severity: Limited To Skin Breakdown Amount of bleeding with debridement: Mild Bleeding Controlled with: Compression and gauze Patient tolerated procedure: Patient tolerated procedure well Assessment/Plan Active Problems (Last Reviewed 04/24/20 @ 15:[address] Juan Arteaga MD) Ulcer of right foot with fat layer exposed (Chronic) Chronic ulcer of left foot with fat layer exposed (Chronic) Other specified peripheral vascular diseases (Chronic) Delayed wound healing (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) Diabetes (Chronic) Diabetic neuropathy (Chronic) Assessment: Left plantar medial foot ulcer, [place] Grade 3 (recent status change from fat layer exposed to tendon layer exposure now that is devitalized). Multiple newer right foot ulcers include plantar lateral, dorsal medial, medial ankle, dorsal hallux, second toe, and third toe - [place] grade 1. Cellulitis right foot resolving well. Morbid obesity. 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 Subcutaneous excisional debridement was performed as noted in the clinical panel to the left foot and right foot and leg. His ulcer status has improved bilateral. There is no longer any tendon exposed today on the left foot. epi-fix, rated well and patient is healing well. The benefits, indications, anticipated application, healing time management were reviewed. This was applied according standard protocol and further secured with a wound veil and Steri-Strips. He tolerated this well to the left foot. He did well with a total contact cast last week and there is been significant reduction in inflammation and callus formation. I recommend application today. Verbal consent was obtained and this was applied according to standard protocol in a neutral position well-padded manner to the left foot. He tolerated this well. He was advised to keep this clean, dry, and intact until follow-up next week. His right foot ulcer sites were also debrided as noted in the clinical panel. To change dressing daily with Medprex Ag. To offload by heel weightbearing in a surgical shoe which was previously provided. I discussed other offloading techniques such as using a walker or a knee roller for the left limb. His noninvasive vascular studies were reviewed from which were normal and intervention was previously not recommended. I advised him to follow-up with all of Dr. Bonilla's recommendations to optimize his healing process. He has for help scheduling this because he has not been able to do this. He has recently been seen and intervention is planned for arterial optimization. An updated bilateral duplex was also recommended to help with planning. He had an updated left foot x-ray which did not demonstrate any new progressive osseous destruction, soft tissue emphysema, fracture, dislocation, or foreign body. I recommend that he sees infectious disease because he is very high risk and input is greatly appreciated. He had recent multi-organism culture (MRSA, E facealis, klebs, strep, corynebacterium) results and cellulitis clinical signs to the right foot. These have improved since he started linezolid and Levaquin over the weekend. An additional weeks course of antibiotics were provided. His right foot x-rays reviewed without any osseous destruction. 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 To continue with hyperbaric oxygen therapy which appears to be helping. I recommend continued course due to his positive response. This is medically necessary and he is responding well and making appropriate progress. It is noted his nutrition, vascular, and medical status is optimized. To continue to work on decreasing glucose levels. He has a history of hyperglycemia. To continue to follow-up with nutritional services. To continue to follow-up as advised. He is currently making adjustments with his eating habits. He also follows up with [facility] hands, Dr. Arteaga who is working with him to reduce his hemoglobin A1c with medication and behavioral changes. Smoking cessation was discussed in detail and he was advised on the healing impairment associated with this. To continue with his smoking cessation program. I also recommend discontinuation of nicotine products for this also contributes to small vessel contraction. He has demonstrated appropriate stabilization from an ulcer standpoint with recent qualit I answered all of his questions today. To return to clinic in 1 week or call sooner if questions, concerns, or progressive worsening.
[2020-06-29 08:21] LABS: Bedside Glucose 200 mg/dL (70-110)
[2020-06-29 08:36] VITALS: BP 139/66; BP 167/72; PULSE 77; PULSE 92; RESP 18; RESP 20; TEMP 35.9; TEMP 36.1
--- NOTE | 2020-06-29 08:59 | HBO.PN.PCM_ITS ---
History of Present Illness Date of Service: 06/29/20 Presenting Chief Complaint: Diabetic left foot ulceration, Mancilla Grade 3, with infection. Right foot ulcers with recent infection GEN SIM is a 65 year old currently undergoing hyperbaric oxygen therapy for diabetic left foot infection, Mancilla grade 3. Progress: Today's session represents the 36th session of hyperbaric oxygen therapy, of an expected 40 such treatments. Tolerance of hyperbaric oxygen therapy: Hyperbaric oxygen therapy was a dministered as per the facility's protocol. Hyperbaric oxygen therapy was administered for 90 minutes at 2 silas, with two 5-minute air breaks. Upon emergence from the hyperbaric oxygen chamber the patient had no complaints or complications. The patient's vital signs remained stable. The patient was discharged in good condition. His pre-and post- HBO blood sugars are recorded elsewhere. Past Medical History Chronic Problems (Last Reviewed 04/24/20 @ 15:[address] 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) History of transmetatarsal amputation of left foot (Chronic) Ulcer of right foot with fat layer exposed (Chronic) Obesity (Chronic) Tobacco abuse (Chronic) Osteomyelitis, unspecified (Chronic) Chronic ulcer of left foot with fat layer exposed (Chronic) Osteomyelitis of left foot (Chronic) Diabetic ulcer of left foot (Chronic) Other specified peripheral vascular diseases (Chronic) Delayed wound healing (Chronic) Difficulty in walking, not elsewhere classified (Chronic) 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) Tobacco abuse counseling (Chronic) Mixed hyperlipidemia (Chronic) Benign essential hypertension (Chronic) 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) Diabetes (Chronic) Type 2 diabetes mellitus (Chronic) Obstructive sleep apnea (Chronic) Uncontrolled diabetes mellitus (Chronic) Diabetic infection of left foot (Chronic) Osteomyelitis of great toe of left foot (Chronic) Morbid obesity due to excess calories (Chronic) Tobacco dependence due to cigarettes (Chronic) Diabetic neuropathy (Chronic) Hypertension (Chronic) 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) Allergies/Adverse Reactions: Allergies Sulfa (Sulfonamide Antibiotics) Allergy (Verified 05/24/20 10:13) Rash Home Medications: Ambulatory Orders Medication Instructions Recorded Calcium Carbonate [Calcium] 500 mg PO DAILY 06/23/17 Multivitamin [Multiple Vitamins] 1 ea PO DAILY 06/23/17 aspirin 81 mg tablet,delayed 81 mg PO DAILY 08/12/19 release atorvastatin 40 mg tablet 40 mg PO DAILY 10/18/19 bupropion HCl 150 mg 24 hr tablet, 150 mg PO BID tab 10/18/19 extended release lisinopril 10 mg tablet 10 mg PO DAILY 10/18/19 tamsulosin 0.4 mg capsule 0.4 mg PO DAILY@1730 cap 10/18/19 blood sugar diagnostic See Rx Instructions .ROUTE 10/28/19 .MEDSUPPLY #100 ea lancets 33 gauge See Rx Instructions .ROUTE 10/28/19 .MEDSUPPLY #100 ea gabapentin 300 mg capsule 600 mg PO TIDCM cap 04/24/20 insulin regular hum U-500 conc 145 unit SC TID #27 ml 05/12/20 Linezolid 600 mg PO DAILY #7 tab 06/14/20 levoFLOXacin tablet [Levaquin 500 mg PO DAILY #7 tab 06/14/20 tablet] Maternal Family History: Family History (Last Reviewed 04/24/20 @ 15:[address] Juan Arteaga MD) Father Myocardial infarction Heart disease Mother Kidney disease Diabetes Sister Asthma Breast cancer Hypertension Brother Alcoholism Melanoma Family History: Diabetes, Renal Disease - on dialysis Paternal Family History: Family History (Last Reviewed 04/24/20 @ 15:[address] Juan Arteaga MD) Father Myocardial infarction Heart disease Mother Kidney disease Diabetes Sister Asthma Breast cancer Hypertension Brother Alcoholism Melanoma Family History: Heart Disease Sibling Family History: Family History (Last Reviewed 04/24/20 @ 15:[address] Juan Arteaga MD) Father Myocardial infarction Heart disease Mother Kidney disease Diabetes Sister Asthma Breast cancer Hypertension Brother Alcoholism Melanoma Family History: Cancer - breast cancer in his sister Smoking Status: Heavy Smoker (>10/day) Tobacco Use: Cigarettes Alcohol: None Drugs: None Physical Exam Vital Signs Temp Pulse Resp BP 96.7 F L 92 20 H 167/72 H 06/29/20 08:36 06/29/20 08:36 06/29/20 08:36 06/29/20 08:36 General: Alert, Oriented x3, Cooperative, No apparent distress HEENT: Atraumatic, TM's Clear Lungs: Clear to auscultation, Normal air movement Cardiovascular: Regular rate, Regular Rhythm Psych/Mental Status: Normal Affect, Appropriate, Alert and oriented to time, place, person, mood and affect Assessment/Plan Active Problems (Last Reviewed 04/24/20 @ 15:[address] Juan Arteaga MD) Ulcer of right foot with fat layer exposed (Chronic) Chronic ulcer of left foot with fat layer exposed (Chronic) Other specified peripheral vascular diseases (Chronic) Delayed wound healing (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) Diabetes (Chronic) Diabetic neuropathy (Chronic) Treatment Course Number Number of HBO Treatments 50 Ordered Treatment Course Number 1 Treatment # 36 Chamber # [id number] Chamber Type Monoplace HBO Diagnosis/Indication Diagnosis/Indication(s) for Right Diabetic Foot Ulcer Hyperbaric Therapy Classification - Manc[place] Grade 2 Grading (Diabetic Ulcer) [] Classification - [place] Grade 2 Grading (Diabetic Ulcer) [] Classification - [place] Grade 3 Grading (Diabetic Ulcer) Diabetes - Detail Diabetes Diabetes Type II Diabetes Control Uncontrolled Left Extremity Ulcer, Other part of Foot Treatment Plan MARTITA (Atmospheric Absolute) 2 Number of Minutes 90 Number of Air Breaks 2
[2020-06-29 10:11] LABS: Bedside Glucose 186 mg/dL (70-110)
[2020-06-30 10:16] LABS: Bedside Glucose 124 mg/dL (70-110)
[2020-06-30 10:36] LABS: Bedside Glucose 131 mg/dL (70-110)
[2020-06-30 10:45] VITALS: BP 153/70; BP 171/70; PULSE 75; PULSE 86; RESP 18; TEMP 35.9; TEMP 36.3
[2020-06-30 12:46] LABS: Bedside Glucose 139 mg/dL (70-110)
--- NOTE | 2020-06-30 13:48 | HBO.PN.PCM_ITS ---
History of Present Illness Date of Service: 06/30/20 Presenting Chief Complaint: Diabetic left foot ulceration, Manc[place] Grade 3, with infection. Right foot ulcers with recent infection GEN SIM is a 65 year old currently undergoing hyperbaric oxygen therapy for diabetic left foot infection, Mancilla grade 3. Progress: Today's session represents the 37th session of hyperbaric oxygen therapy, of an expected 40 such treatments. Tolerance of hyperbaric oxygen therapy: Hyperbaric oxygen therapy was a dministered as per the facility's protocol. Hyperbaric oxygen therapy was administered for 90 minutes at 2 silas, with two 5-minute air breaks. Upon emergence from the hyperbaric oxygen chamber the patient had no complaints or complications. The patient's vital signs remained stable. The patient was discharged in good condition. His pre-and post- HBO blood sugars are recorded elsewhere. Past Medical History Chronic Problems (Last Reviewed 04/24/20 @ 15:[address] 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) History of transmetatarsal amputation of left foot (Chronic) Ulcer of right foot with fat layer exposed (Chronic) Obesity (Chronic) Tobacco abuse (Chronic) Osteomyelitis, unspecified (Chronic) Chronic ulcer of left foot with fat layer exposed (Chronic) Osteomyelitis of left foot (Chronic) Diabetic ulcer of left foot (Chronic) Other specified peripheral vascular diseases (Chronic) Delayed wound healing (Chronic) Difficulty in walking, not elsewhere classified (Chronic) 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) Tobacco abuse counseling (Chronic) Mixed hyperlipidemia (Chronic) Benign essential hypertension (Chronic) 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) Diabetes (Chronic) Type 2 diabetes mellitus (Chronic) Obstructive sleep apnea (Chronic) Uncontrolled diabetes mellitus (Chronic) Diabetic infection of left foot (Chronic) Osteomyelitis of great toe of left foot (Chronic) Morbid obesity due to excess calories (Chronic) Tobacco dependence due to cigarettes (Chronic) Diabetic neuropathy (Chronic) Hypertension (Chronic) 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) Allergies/Adverse Reactions: Allergies Sulfa (Sulfonamide Antibiotics) Allergy (Verified 05/24/20 10:13) Rash Home Medications: Ambulatory Orders Medication Instructions Recorded Calcium Carbonate [Calcium] 500 mg PO DAILY 06/23/17 Multivitamin [Multiple Vitamins] 1 ea PO DAILY 06/23/17 aspirin 81 mg tablet,delayed 81 mg PO DAILY 08/12/19 release atorvastatin 40 mg tablet 40 mg PO DAILY 10/18/19 bupropion HCl 150 mg 24 hr tablet, 150 mg PO BID tab 10/18/19 extended release lisinopril 10 mg tablet 10 mg PO DAILY 10/18/19 tamsulosin 0.4 mg capsule 0.4 mg PO DAILY@1730 cap 10/18/19 blood sugar diagnostic See Rx Instructions .ROUTE 10/28/19 .MEDSUPPLY #100 ea lancets 33 gauge See Rx Instructions .ROUTE 10/28/19 .MEDSUPPLY #100 ea gabapentin 300 mg capsule 600 mg PO TIDCM cap 04/24/20 insulin regular hum U-500 conc 145 unit SC TID #27 ml 05/12/20 Linezolid 600 mg PO DAILY #7 tab 06/14/20 levoFLOXacin tablet [Levaquin 500 mg PO DAILY #7 tab 06/14/20 tablet] Maternal Family History: Family History (Last Reviewed 04/24/20 @ 15:[address] Juan Arteaga MD) Father Myocardial infarction Heart disease Mother Kidney disease Diabetes Sister Asthma Breast cancer Hypertension Brother Alcoholism Melanoma Family History: Diabetes, Renal Disease - on dialysis Paternal Family History: Family History (Last Reviewed 04/24/20 @ 15:[address] Juan Arteaga MD) Father Myocardial infarction Heart disease Mother Kidney disease Diabetes Sister Asthma Breast cancer Hypertension Brother Alcoholism Melanoma Family History: Heart Disease Sibling Family History: Family History (Last Reviewed 04/24/20 @ 15:[address] Juan Arteaga MD) Father Myocardial infarction Heart disease Mother Kidney disease Diabetes Sister Asthma Breast cancer Hypertension Brother Alcoholism Melanoma Family History: Cancer - breast cancer in his sister Smoking Status: Heavy Smoker (>10/day) Tobacco Use: Cigarettes Alcohol: None Drugs: None Physical Exam Vital Signs Temp Pulse Resp BP 96.7 F L 86 18 153/70 H 06/30/20 10:45 06/30/20 10:45 06/30/20 10:45 06/30/20 10:45 General: Alert, Cooperative, No apparent distress HEENT: Atraumatic, Normocephalic, TM's Clear - Tympanostomy tubes present bilaterally, EAC Clear Lungs: Clear to auscultation, Normal air movement, No rhonchi, No wheeze, No rales Cardiovascular: Regular rate, Regular Rhythm Psych/Mental Status: Normal Affect, Appropriate Assessment/Plan Active Problems (Last Reviewed 04/24/20 @ 15:[address] Juan Arteaga MD) Ulcer of right foot with fat layer exposed (Chronic) Chronic ulcer of left foot with fat layer exposed (Chronic) Other specified peripheral vascular diseases (Chronic) Delayed wound healing (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) Diabetes (Chronic) Diabetic neuropathy (Chronic) The patient appears to be tolerating hyperbaric oxygen therapy well, which will be continued as per the patient's medical plan. Treatment Course Number Number of HBO Treatments 50 Ordered Treatment Course Number 1 Treatment # 37 Chamber # [id number] Chamber Type Monoplace HBO Diagnosis/Indication Diagnosis/Indication(s) for Right Diabetic Foot Ulcer Hyperbaric Therapy Classification - Mancilla Grade 2 Grading (Diabetic Ulcer) [] Classification - [place] Grade 2 Grading (Diabetic Ulcer) [] Classification - [place] Grade 3 Grading (Diabetic Ulcer) Diabetes - Detail Diabetes Diabetes Type II Diabetes Control Uncontrolled Left Extremity Ulcer, Other part of Foot Treatment Plan MARTITA (Atmospheric Absolute) 2 Number of Minutes 90 Number of Air Breaks 2
[2020-07-03 08:16] LABS: Bedside Glucose 206 mg/dL (70-110)
[2020-07-03 08:37] VITALS: BP 154/74; BP 176/88; PULSE 80; PULSE 86; RESP 18; TEMP 36.5
--- NOTE | 2020-07-03 10:32 | HBO.PN.PCM_ITS ---
History of Present Illness Date of Service: 07/03/20 Presenting Chief Complaint: Diabetic left foot ulceration, Mancilla Grade 3, with infection. Right foot ulcers with recent infection GEN SIM is a 65 year old currently undergoing hyperbaric oxygen therapy for diabetic left foot infection, Mancilla grade 3. Progress: Today's session represents the 38th session of hyperbaric oxygen therapy, of an expected 40 such treatments. Tolerance of hyperbaric oxygen therapy: Hyperbaric oxygen therapy was a dministered as per the facility's protocol. Hyperbaric oxygen therapy was administered for 90 minutes at 2 silas, with two 5-minute air breaks. Upon emergence from the hyperbaric oxygen chamber the patient had no complaints or complications. The patient's vital signs remained stable. The patient was discharged in good condition. His pre-and post- HBO blood sugars are recorded elsewhere. Past Medical History Chronic Problems (Last Reviewed 04/24/20 @ 15:[address] Jaun Arteaga MD) MRSA (methicillin resistant staph aureus) culture positive (Chronic) Ulcer of left foot with necrosis of muscle (Chronic) History of transmetatarsal amputation of left foot (Chronic) Ulcer of right foot with fat layer exposed (Chronic) Obesity (Chronic) Tobacco abuse (Chronic) Osteomyelitis, unspecified (Chronic) Chronic ulcer of left foot with fat layer exposed (Chronic) Osteomyelitis of left foot (Chronic) Diabetic ulcer of left foot (Chronic) Other specified peripheral vascular diseases (Chronic) Delayed wound healing (Chronic) Difficulty in walking, not elsewhere classified (Chronic) 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) Tobacco abuse counseling (Chronic) Mixed hyperlipidemia (Chronic) Benign essential hypertension (Chronic) 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) Diabetes (Chronic) Type 2 diabetes mellitus (Chronic) Obstructive sleep apnea (Chronic) Uncontrolled diabetes mellitus (Chronic) Diabetic infection of left foot (Chronic) Osteomyelitis of great toe of left foot (Chronic) Morbid obesity due to excess calories (Chronic) Tobacco dependence due to cigarettes (Chronic) Diabetic neuropathy (Chronic) Hypertension (Chronic) 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) Allergies/Adverse Reactions: Allergies Sulfa (Sulfonamide Antibiotics) Allergy (Verified 05/24/20 10:13) Rash Home Medications: Ambulatory Orders Medication Instructions Recorded Calcium Carbonate [Calcium] 500 mg PO DAILY 06/23/17 Multivitamin [Multiple Vitamins] 1 ea PO DAILY 06/23/17 aspirin 81 mg tablet,delayed 81 mg PO DAILY 08/12/19 release atorvastatin 40 mg tablet 40 mg PO DAILY 10/18/19 bupropion HCl 150 mg 24 hr tablet, 150 mg PO BID tab 10/18/19 extended release lisinopril 10 mg tablet 10 mg PO DAILY 10/18/19 tamsulosin 0.4 mg capsule 0.4 mg PO DAILY@1730 cap 10/18/19 blood sugar diagnostic See Rx Instructions .ROUTE 10/28/19 .MEDSUPPLY #100 ea lancets 33 gauge See Rx Instructions .ROUTE 10/28/19 .MEDSUPPLY #100 ea gabapentin 300 mg capsule 600 mg PO TIDCM cap 04/24/20 insulin regular hum U-500 conc 145 unit SC TID #27 ml 05/12/20 Linezolid 600 mg PO DAILY #7 tab 06/14/20 levoFLOXacin tablet [Levaquin 500 mg PO DAILY #7 tab 06/14/20 tablet] Maternal Family History: Family History (Last Reviewed 04/24/20 @ 15:[address] Juan Arteaga MD) Father Myocardial infarction Heart disease Mother Kidney disease Diabetes Sister Asthma Breast cancer Hypertension Brother Alcoholism Melanoma Family History: Diabetes, Renal Disease - on dialysis Paternal Family History: Family History (Last Reviewed 04/24/20 @ 15:[address] Juan Arteaga MD) Father Myocardial infarction Heart disease Mother Kidney disease Diabetes Sister Asthma Breast cancer Hypertension Brother Alcoholism Melanoma Family History: Heart Disease Sibling Family History: Family History (Last Reviewed 04/24/20 @ 15:[address] Juan Arteaga MD) Father Myocardial infarction Heart disease Mother Kidney disease Diabetes Sister Asthma Breast cancer Hypertension Brother Alcoholism Melanoma Family History: Cancer - breast cancer in his sister Smoking Status: Heavy Smoker (>10/day) Tobacco Use: Cigarettes Alcohol: None Drugs: None Physical Exam Vital Signs Temp Pulse Resp BP 97.7 F L 86 18 154/74 H 07/03/20 08:37 07/03/20 08:37 07/03/20 08:37 07/03/20 08:37 General: Alert, Oriented x3, Cooperative, No apparent distress HEENT: Atraumatic, - - left TM slightly injected but non-tender, tube intact Lungs: Clear to auscultation, Normal air movement Cardiovascular: Regular rate, Regular Rhythm Psych/Mental Status: Normal Affect, Appropriate, Alert and oriented to time, place, person, mood and affect Assessment/Plan Active Problems (Last Reviewed 04/24/20 @ 15:[address] Juan Arteaga MD) Ulcer of right foot with fat layer exposed (Chronic) Chronic ulcer of left foot with fat layer exposed (Chronic) Other specified peripheral vascular diseases (Chronic) Delayed wound healing (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) Diabetes (Chronic) Diabetic neuropathy (Chronic) Treatment Course Number Number of HBO Treatments 50 Ordered Treatment Course Number 1 Treatment # 38 Chamber # [id number] Chamber Type Monoplace HBO Diagnosis/Indication Diagnosis/Indication(s) for Right Diabetic Foot Ulcer Hyperbaric Therapy Classification - [place] Grade 2 Grading (Diabetic Ulcer) [] Classification - [place] Grade 2 Grading (Diabetic Ulcer) [] Classification - [place] Grade 3 Grading (Diabetic Ulcer) Diabetes - Detail Diabetes Diabetes Type II Diabetes Control Uncontrolled Left Extremity Ulcer, Other part of Foot Treatment Plan MARTITA (Atmospheric Absolute) 2 Number of Minutes 90 Number of Air Breaks 2
[2020-07-03 11:01] LABS: Bedside Glucose 165 mg/dL (70-110)
[2020-07-04 08:06] LABS: Bedside Glucose 160 mg/dL (70-110)
[2020-07-04 10:10] LABS: Bedside Glucose 110 mg/dL (70-110)
[2020-07-04 10:49] VITALS: BP 160/70; BP 162/70; PULSE 72; PULSE 91; RESP 16; TEMP 36.1; TEMP 36.2
--- NOTE | 2020-07-04 12:13 | HBO.PN.PCM_ITS ---
History of Present Illness Date of Service: 07/04/20 Presenting Chief Complaint: Diabetic left foot ulceration, [place] Grade 3, with infection. Right foot ulcers with recent infection GEN SIM is a 65 year old currently undergoing hyperbaric oxygen therapy for diabetic left foot infection, [place] grade 3. Progress: Today's session represents the 39th session of hyperbaric oxygen therapy, of an expected 40 such treatments. Tolerance of hyperbaric oxygen therapy: Hyperbaric oxygen therapy was a dministered as per the facility's protocol. Hyperbaric oxygen therapy was administered for 90 minutes at 2 silas, with two 5-minute air breaks. Upon emergence from the hyperbaric oxygen chamber the patient had no complaints or complications. The patient's vital signs remained stable. The patient was discharged in good condition. His pre-and post- HBO blood sugars are recorded elsewhere. Past Medical History Chronic Problems (Last Reviewed 04/24/20 @ 15:[address] 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) History of transmetatarsal amputation of left foot (Chronic) Ulcer of right foot with fat layer exposed (Chronic) Obesity (Chronic) Tobacco abuse (Chronic) Osteomyelitis, unspecified (Chronic) Chronic ulcer of left foot with fat layer exposed (Chronic) Osteomyelitis of left foot (Chronic) Diabetic ulcer of left foot (Chronic) Other specified peripheral vascular diseases (Chronic) Delayed wound healing (Chronic) Difficulty in walking, not elsewhere classified (Chronic) 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) Tobacco abuse counseling (Chronic) Mixed hyperlipidemia (Chronic) Benign essential hypertension (Chronic) 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) Diabetes (Chronic) Type 2 diabetes mellitus (Chronic) Obstructive sleep apnea (Chronic) Uncontrolled diabetes mellitus (Chronic) Diabetic infection of left foot (Chronic) Osteomyelitis of great toe of left foot (Chronic) Morbid obesity due to excess calories (Chronic) Tobacco dependence due to cigarettes (Chronic) Diabetic neuropathy (Chronic) Hypertension (Chronic) 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) Allergies/Adverse Reactions: Allergies Sulfa (Sulfonamide Antibiotics) Allergy (Verified 05/24/20 10:13) Rash Home Medications: Ambulatory Orders Medication Instructions Recorded Calcium Carbonate [Calcium] 500 mg PO DAILY 06/23/17 Multivitamin [Multiple Vitamins] 1 ea PO DAILY 06/23/17 aspirin 81 mg tablet,delayed 81 mg PO DAILY 08/12/19 release atorvastatin 40 mg tablet 40 mg PO DAILY 10/18/19 bupropion HCl 150 mg 24 hr tablet, 150 mg PO BID tab 10/18/19 extended release lisinopril 10 mg tablet 10 mg PO DAILY 10/18/19 tamsulosin 0.4 mg capsule 0.4 mg PO DAILY@1730 cap 10/18/19 blood sugar diagnostic See Rx Instructions .ROUTE 10/28/19 .MEDSUPPLY #100 ea lancets 33 gauge See Rx Instructions .ROUTE 10/28/19 .MEDSUPPLY #100 ea gabapentin 300 mg capsule 600 mg PO TIDCM cap 04/24/20 insulin regular hum U-500 conc 145 unit SC TID #27 ml 05/12/20 Linezolid 600 mg PO DAILY #7 tab 06/14/20 levoFLOXacin tablet [Levaquin 500 mg PO DAILY #7 tab 06/14/20 tablet] Maternal Family History: Family History (Last Reviewed 04/24/20 @ 15:[address] Juan Arteaga MD) Father Myocardial infarction Heart disease Mother Kidney disease Diabetes Sister Asthma Breast cancer Hypertension Brother Alcoholism Melanoma Family History: Diabetes, Renal Disease - on dialysis Paternal Family History: Family History (Last Reviewed 04/24/20 @ 15:[address] Juan Arteaga MD) Father Myocardial infarction Heart disease Mother Kidney disease Diabetes Sister Asthma Breast cancer Hypertension Brother Alcoholism Melanoma Family History: Heart Disease Sibling Family History: Family History (Last Reviewed 04/24/20 @ 15:[address] Juan Arteaga MD) Father Myocardial infarction Heart disease Mother Kidney disease Diabetes Sister Asthma Breast cancer Hypertension Brother Alcoholism Melanoma Family History: Cancer - breast cancer in his sister Smoking Status: Heavy Smoker (>10/day) Tobacco Use: Cigarettes Alcohol: None Drugs: None Physical Exam Vital Signs Temp Pulse Resp BP 97.1 F L 91 16 162/70 H 07/04/20 10:49 07/04/20 10:49 07/04/20 10:49 07/04/20 10:49 General: Alert, Oriented x3, Cooperative, No apparent distress, Well developed, Well nourished HEENT: Atraumatic, PERRLA, EOMI, Normocephalic Lungs: Normal air movement Psych/Mental Status: Normal Affect, Appropriate, Alert and oriented to time, place, person, mood and affect Assessment/Plan The patient appears to be tolerating hyperbaric oxygen therapy well, which will be continued as per the patient's medical plan. Treatment Course Number Number of HBO Treatments 50 Ordered Treatment Course Number 1 Treatment # 39 Chamber # 2 Chamber Type Monoplace HBO Diagnosis/Indication Diagnosis/Indication(s) for Left Diabetic Foot Ulcer Hyperbaric Therapy Classification - [place] Grade 2 Grading (Diabetic Ulcer) [] Classification - [place] Grade 2 Grading (Diabetic Ulcer) [] Classification - [place] Grade 3 Grading (Diabetic Ulcer) Diabetes - Detail Diabetes Diabetes Type II Diabetes Control Uncontrolled Left Extremity Ulcer, Other part of Foot Treatment Plan MARTITA (Atmospheric Absolute) 2.0 Number of Minutes 90 Number of Air Breaks 2
[2020-07-05 07:46] LABS: Bedside Glucose 232 mg/dL (70-110)
[2020-07-05 10:05] LABS: Bedside Glucose 156 mg/dL (70-110)
[2020-07-05 10:21] VITALS: BP 140/71; PULSE 73; RESP 18; TEMP 35.9; BMI 42.8
--- NOTE | 2020-07-05 10:52 | HBO.PN.PCM_ITS ---
History of Present Illness Date of Service: 07/05/20 Presenting Chief Complaint: Diabetic left foot ulceration, [place] Grade 3, with infection. Right foot ulcers with recent infection GEN SIM is a 65 year old currently undergoing hyperbaric oxygen therapy for diabetic left foot infection, [place] grade 3. Progress: Today's session represents the 40th session of hyperbaric oxygen therapy, of an expected 40 such treatments. Tolerance of hyperbaric oxygen therapy: Hyperbaric oxygen therapy was a dministered as per the facility's protocol. Hyperbaric oxygen therapy was administered for 90 minutes at 2 silas, with two 5-minute air breaks. Upon emergence from the hyperbaric oxygen chamber the patient had no complaints or complications. The patient's vital signs remained stable. The patient was discharged in good condition. His pre-and post- HBO blood sugars are recorded elsewhere. Past Medical History Chronic Problems (Last Reviewed 04/24/20 @ 15:[address] 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) History of transmetatarsal amputation of left foot (Chronic) Ulcer of right foot with fat layer exposed (Chronic) Obesity (Chronic) Tobacco abuse (Chronic) Osteomyelitis, unspecified (Chronic) Chronic ulcer of left foot with fat layer exposed (Chronic) Osteomyelitis of left foot (Chronic) Diabetic ulcer of left foot (Chronic) Other specified peripheral vascular diseases (Chronic) Delayed wound healing (Chronic) Difficulty in walking, not elsewhere classified (Chronic) 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) Tobacco abuse counseling (Chronic) Mixed hyperlipidemia (Chronic) Benign essential hypertension (Chronic) 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) Diabetes (Chronic) Type 2 diabetes mellitus (Chronic) Obstructive sleep apnea (Chronic) Uncontrolled diabetes mellitus (Chronic) Diabetic infection of left foot (Chronic) Osteomyelitis of great toe of left foot (Chronic) Morbid obesity due to excess calories (Chronic) Tobacco dependence due to cigarettes (Chronic) Diabetic neuropathy (Chronic) Hypertension (Chronic) 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) Allergies/Adverse Reactions: Allergies Sulfa (Sulfonamide Antibiotics) Allergy (Verified 05/24/20 10:13) Rash Home Medications: Ambulatory Orders Medication Instructions Recorded Calcium Carbonate [Calcium] 500 mg PO DAILY 06/23/17 Multivitamin [Multiple Vitamins] 1 ea PO DAILY 06/23/17 aspirin 81 mg tablet,delayed 81 mg PO DAILY 08/12/19 release atorvastatin 40 mg tablet 40 mg PO DAILY 10/18/19 bupropion HCl 150 mg 24 hr tablet, 150 mg PO BID tab 10/18/19 extended release lisinopril 10 mg tablet 10 mg PO DAILY 10/18/19 tamsulosin 0.4 mg capsule 0.4 mg PO DAILY@1730 cap 10/18/19 blood sugar diagnostic See Rx Instructions .ROUTE 10/28/19 .MEDSUPPLY #100 ea lancets 33 gauge See Rx Instructions .ROUTE 10/28/19 .MEDSUPPLY #100 ea gabapentin 300 mg capsule 600 mg PO TIDCM cap 04/24/20 insulin regular hum U-500 conc 145 unit SC TID #27 ml 05/12/20 Linezolid 600 mg PO DAILY #7 tab 06/14/20 levoFLOXacin tablet [Levaquin 500 mg PO DAILY #7 tab 06/14/20 tablet] Maternal Family History: Family History (Last Reviewed 04/24/20 @ 15:[address] Juan Arteaga MD) Father Myocardial infarction Heart disease Mother Kidney disease Diabetes Sister Asthma Breast cancer Hypertension Brother Alcoholism Melanoma Family History: Diabetes, Renal Disease - on dialysis Paternal Family History: Family History (Last Reviewed 04/24/20 @ 15:[address] Juan Arteaga MD) Father Myocardial infarction Heart disease Mother Kidney disease Diabetes Sister Asthma Breast cancer Hypertension Brother Alcoholism Melanoma Family History: Heart Disease Sibling Family History: Family History (Last Reviewed 04/24/20 @ 15:[address] Juan Arteaga MD) Father Myocardial infarction Heart disease Mother Kidney disease Diabetes Sister Asthma Breast cancer Hypertension Brother Alcoholism Melanoma Family History: Cancer - breast cancer in his sister Smoking Status: Heavy Smoker (>10/day) Tobacco Use: Cigarettes Alcohol: None Drugs: None Physical Exam Vital Signs Temp Pulse Resp BP 96.6 F L 73 18 140/71 H 07/05/20 10:21 07/05/20 10:21 07/05/20 10:21 07/05/20 10:21 Assessment/Plan The patient appears to be tolerating hyperbaric oxygen therapy well, which will be continued as per the patient's medical plan. Treatment Course Number Number of HBO Treatments 50 Ordered Treatment Course Number 1 Treatment # 39 Chamber # 2 Chamber Type Monoplace HBO Diagnosis/Indication Diagnosis/Indication(s) for Left Diabetic Foot Ulcer Hyperbaric Therapy Classification - [place] Grade 2 Grading (Diabetic Ulcer) [#2 right 5th metatarsal] Classification - [place] Grade 2 Grading (Diabetic Ulcer) [#1 Left Plantar medial] Classification - [place] Grade 3 Grading (Diabetic Ulcer) Diabetes - Detail Diabetes Diabetes Type II Diabetes Control Uncontrolled Left Extremity Ulcer, Other part of Foot Treatment Plan MARTITA (Atmospheric Absolute) 2.0 Number of Minutes 90 Number of Air Breaks 2
[2020-07-05 11:08] VITALS: BP 140/71; BP 168/69; PULSE 73; PULSE 85; RESP 18; RESP 20; TEMP 35.9; TEMP 36.2
--- NOTE | 2020-07-05 11:48 | PN.PCM_ITS ---
(1) Ulcer of right foot with fat layer exposed Status: Chronic Code(s): L97.512 - Non-pressure chronic ulcer of other part of right foot with fat layer exposed (2) Cellulitis of right foot Status: Resolved Code(s): L03.115 - Cellulitis of right lower limb (3) Chronic ulcer of left foot with fat layer exposed Status: Chronic Code(s): L97.522 - Non-pressure chronic ulcer of other part of left foot with fat layer exposed (4) Osteomyelitis of left foot Status: Chronic Qualifiers: Code(s): M86.9 - Osteomyelitis, unspecified (5) Delayed wound healing Status: Chronic Code(s): T14.8XXD - Other injury of unspecified body region, subsequent encounter (6) Tobacco abuse counseling Status: Chronic Code(s): Z71.6 - Tobacco abuse counseling (7) Type 2 diabetes mellitus with diabetic polyneuropathy Status: Chronic Qualifiers: Code(s): E11.42 - Type 2 diabetes mellitus with diabetic polyneuropathy Type of Wound Date of Service: 07/05/20 Chief Complaint: Diabetic left foot ulceration, [place] Grade 3, with infection. Right foot ulcers with recent infection History of Wound: This 65-year-old male with multiple comorbidities was seen today for left foot ulcer. His left foot ulcer onset was 12-07-2019. He is previously known to me and had a left transmetatarsal amputation performed previously. He had a total contact cast applied last week and kept this clean, dry, and intact. He denies diarrhea, rash, fever, chill, nausea, vomiting. He also continues hyperbaric oxygen therapy. He was also seen today for multiple right foot ulcers and he has been taking antibiotics as recommended by infectious disease. He relates his foot is doing better and he tries to offload. Progress of Wound: Subbing for regular doctor. Right lateral plantar and right medial ankle all healing well. We will continue with same treatment left plantar medial foot improving will continue with epi fix for 6 and a total contact cast which she is tolerating well - Physical Exam Vital Signs Temp Pulse Resp BP 97.1 F L 85 20 H 168/69 H 07/05/20 11:08 07/05/20 11:08 07/05/20 11:08 07/05/20 11:08 General: Alert, Oriented x3, Cooperative, No apparent distress HEENT: Atraumatic Extremities: No cyanosis, Capillary Refill Less than 3 Seconds, No Calf Tenderness, Diminished Peripheral Pulses, Edema, - - Left transmetatarsal amputation Prominent metatarsal heads right Skin: Ulcer/ Wound - No purulence, erythema, streaking, odor, infection. Adjacent skin is hairless and atrophic. Decrease callus formation noted on the left and right feet Wound Measurements and Assessment WC - Nurse 1 - General Ulcer Measurement Start: 06/22/20 11:33 Freq: Status: Active Protocol: Activity Type Activity Date Activity User E-Sign Co-Sign Detail Recorded Client Recorded Date Recorded By Document 07/05/20 10:21 DL [id number] 07/05/20 10:35 DL 07/05/20 10:21 Wound Center Nurse 1 [Ulcer Assessment] #9 right lateral plantar -Current Size (cm) - Length 1.8 -Current Size (cm) - Width 2.2 -Current Size (cm) - Depth 0.7 -Total Square Cm 3.96 -Exudate Amt Small -Exudate Type Serosanguineous -Wound Margin Thickened & Rolled Under -Granulation Amt Medium (34-66%) -Granulation Quality Red -Necrosis Amt Medium (34-66%) -Necrotic Tissue Type Adherent Slough -Structure Exposed N/A -Texture (Maria M-wound Skin Appearance) Callus,Scarring -Moisture (Maria M-wound Skin Appearance Dry/Scaly ) -Color (Maria M-wound Skin Appearance) No Abnormality -Temperature (Maria M-wound Skin No Abnormality Appearance) (Pt Warm) -Tenderness on Palpation (Maria M-wound No Skin Appearance) -Ulcer Cleansing Wound Cleanser -Foul Odor after Cleansing No -Anesthetic Used 4% Lidocaine Solution #3 right medial ankle -Current Size (cm) - Length 1.3 -Current Size (cm) - Width 1 -Current Size (cm) - Depth 0.2 -Total Square Cm 1.3 -Exudate Amt Small -Exudate Type Serosanguineous -Wound Margin Distinct, Outline Attached -Granulation Amt Large (67-100%) -Granulation Quality [place] -Necrosis Amt Small (1-33%) -Necrotic Tissue Type Adherent Slough -Structure Exposed N/A -Texture (Maria M-wound Skin Appearance) Scarring -Moisture (Maria M-wound Skin Appearance No Abnormality ) -Color (Maria M-wound Skin Appearance) Hemosiderin Staining -Temperature (Maria M-wound Skin No Abnormality Appearance) (Pt Warm) -Tenderness on Palpation (Maria M-wound No Skin Appearance) -Ulcer Cleansing Wound Cleanser -Foul Odor after Cleansing No -Anesthetic Used 4% Lidocaine Solution #1 Left Plantar medial -Current Size (cm) - Length 1.4 -Current Size (cm) - Width 1.1 -Current Size (cm) - Depth 0.7 -Total Square Cm 1.54 -Exudate Amt Medium -Exudate Type Serosanguineous -Wound Margin Thickened -Granulation Amt Medium (34-66%) -Granulation Quality Pale,[place] -Necrosis Amt Medium (34-66%) -Necrotic Tissue Type Adherent Slough -Structure Exposed N/A -Texture (Maria M-wound Skin Appearance) Scarring -Moisture (Maria M-wound Skin Appearance Maceration ) -Color (Maria M-wound Skin Appearance) No Abnormality -Temperature (Maria M-wound Skin No Abnormality Appearance) (Pt Warm) -Tenderness on Palpation (Maria M-wound No Skin Appearance) -Ulcer Cleansing Wound Cleanser -Foul Odor after Cleansing No -Anesthetic Used 4% Lidocaine Solution WC - Nurse 2 - General Ulcer CM Notes Start: 06/22/20 11:33 Freq: Status: Active Protocol: Activity Type Activity Date Activity User E-Sign Co-Sign Detail Recorded Client Recorded Date Recorded By Document 07/05/20 10:53 [email or web address] [id number] 07/05/20 11:02 CASSY 07/05/20 10:53 Wound Center Nurse 2 [Procedure/Treatment] #9 right lateral plantar -Time 10:57 -Correct Patient Yes -Correct Side, Site, Position Yes -Correct Procedure Yes -Procedure Performed Yes -Type of Procedure Debridement -Clinical Debridement Subcutaneous -Tissue Removed Subcutaneous -Post Debridement (cm) - Length 1.8 -Post Debridement (cm) - Width 2.3 -Post Debridement (cm) - Depth 0.7 -Total Square (Post) (cm) 4.14 -Area of Debridement (cm) - Length 1.8 -Area of Debridement (cm) - Width 2.3 -Total Square (Area) (cm) 4.14 -Tunneling No -Undermining/Tunneling No -Circular Undermining No -Wound/Ulcer Outcome Not Healed -Ulcer Cleansing Rinsed/ Irrigated with Saline -Foul Odor after Cleansing No -Bioengineered Tissue No -Bleeding Controlled with Pressure -Offloading Yes -Type of Offloading Surgical Shoe -Treatment Response Procedure Tolerated Well -Debridement - Subq, 1st 20sq cm Yes #3 right medial ankle -Time 10:53 -Correct Patient Yes -Correct Side, Site, Position Yes -Correct Procedure Yes -Procedure Performed Yes -Type of Procedure Debridement -Clinical Debridement Subcutaneous -Tissue Removed Subcutaneous -Post Debridement (cm) - Length 1.3 -Post Debridement (cm) - Width 1.1 -Post Debridement (cm) - Depth 0.2 -Total Square (Post) (cm) 1.43 -Area of Debridement (cm) - Length 1.3 -Area of Debridement (cm) - Width 1.1 -Total Square (Area) (cm) 1.43 -Tunneling No -Undermining/Tunneling No -Circular Undermining No -Wound/Ulcer Outcome Not Healed -Ulcer Cleansing Rinsed/ Irrigated with Saline -Foul Odor after Cleansing No -Bioengineered Tissue No -Bleeding Controlled with Pressure -Offloading Yes -Type of Offloading Surgical Shoe -Treatment Response Procedure Tolerated Well -Debridement - Subq, 20sq cm No #1 Left Plantar medial -Time 10:53 -Correct Patient Yes -Correct Side, Site, Position Yes -Correct Procedure Yes -Procedure Performed Yes -Type of Procedure Debridement -Clinical Debridement Subcutaneous -Tissue Removed Subcutaneous -Post Debridement (cm) - Length 1.5 -Post Debridement (cm) - Width 1.1 -Post Debridement (cm) - Depth 0.7 -Total Square (Post) (cm) 1.65 -Area of Debridement (cm) - Length 1.4 -Area of Debridement (cm) - Width 1.1 -Total Square (Area) (cm) 1.54 -Tunneling No -Undermining/Tunneling No -Circular Undermining No -Wound/Ulcer Outcome Not Healed -Ulcer Cleansing Rinsed/ Irrigated with Saline -Foul Odor after Cleansing No -Bioengineered Tissue Yes -Type of Bioengineered Tissue Epifix -Expiration Date 02/20/25 -Product Lot Number [id number] -Percent Used 100 -Saline Lot Number [id number] -Bleeding Controlled with Pressure -Offloading Yes -Type of Offloading Total Contact Cast (TCC) - Left ($) -Treatment Response Procedure Tolerated Well -Debridement - Subq, 1st 20sq cm No -Apply Skin Sub - 1st 25 sq cm - Feet 1 -Epifix (per sq cm) 4 [See Physician Procedure note for Specifics] Pain Scale: 0-10 Numeric [Pain] -Is Patient Pain Free? Yes - Nurse 3 - General Ulcer D/C NN Start: 06/22/20 11:33 Freq: Status: Active Protocol: Activity Type Activity Date Activity User E-Sign Co-Sign Detail Recorded Client Recorded Date Recorded By Document 07/04/20 10:49 [id number] 07/04/20 10:59 07/04/20 10:49 - Visit Discharge [Visit Discharge Information] -Discharge Condition Stable -Ambulatory Status Ambulatory -Transportation Private Auto -Medication Reconcilliation completed Yes & provided to patient/care provider -Clinical Summary of Care Provided Yes Musculoskeletal: No Tenderness to Palpation of Joints or Extremities, Muscle Wasting Neurological: - - Lack of appropriate sensation light touch is consistent with neuropathy status Psych/Mental Status: Normal Affect, Appropriate Debridement Note Post-Debridement Measurements/Treatment - Nurse 2 - General Ulcer CM Notes Start: 06/22/20 11:33 Freq: Status: Active Protocol: Activity Type Activity Date Activity User E-Sign Co-Sign Detail Recorded Client Recorded Date Recorded By Document 06/28/20 11:00 [id number] 06/28/20 11:16 Document 07/05/20 10:53 [id number] 07/05/20 11:02 06/28/20 07/05/20 11:00 10:53 Wound Center Nurse 2 #9 right lateral plantar -Time 11:01 10:57 -Correct Patient Yes Yes -Correct Side, Site, Position Yes Yes -Correct Procedure Yes Yes -Procedure Performed Yes Yes -Type of Procedure Debridement Debridement -Clinical Debridement Subcutaneous Subcutaneous -Tissue Removed Subcutaneous Subcutaneous -Post Debridement (cm) - Length 2.0 1.8 -Post Debridement (cm) - Width 2.0 2.3 -Post Debridement (cm) - Depth 0.3 0.7 -Total Square (Post) (cm) 4.00 4.14 -Area of Debridement (cm) - Length 2.0 1.8 -Area of Debridement (cm) - Width 2.0 2.3 -Total Square (Area) (cm) 4.00 4.14 -Tunneling No No -Undermining/Tunneling No No -Circular Undermining No No -Wound/Ulcer Outcome Not Healed Not Healed -Ulcer Cleansing Rinsed/ Rinsed/ Irrigated with Irrigated with Saline Saline -Foul Odor after Cleansing No No -Bioengineered Tissue No No -Bleeding Controlled with Pressure Pressure -Offloading No Yes -Type of Offloading Total Contact Surgical Shoe Cast (TCC) - Left ($) -Treatment Response Procedure Tolerated Well -Debridement - Subq, 1st 20sq cm Yes Yes #7 right 2nd toe -Time 11:06 -Correct Patient Yes -Correct Side, Site, Position Yes -Correct Procedure Yes -Procedure Performed No -Post Debridement (cm) - Length 0 -Post Debridement (cm) - Width 0 -Post Debridement (cm) - Depth 0 -Total Square (Post) (cm) 0 -Tunneling No -Undermining/Tunneling No -Circular Undermining No -Wound/Ulcer Outcome Healed- Epithelialized -Bleeding Controlled with NA #6 right lateral base great toe -Time 11:07 -Correct Patient Yes -Correct Side, Site, Position Yes -Correct Procedure Yes -Procedure Performed No -Post Debridement (cm) - Length 0 -Post Debridement (cm) - Width 0 -Post Debridement (cm) - Depth 0 -Total Square (Post) (cm) 0 -Wound/Ulcer Outcome Healed- Epithelialized #5 right great toe cluster -Time 11:08 -Correct Patient Yes -Correct Side, Site, Position Yes -Correct Procedure Yes -Procedure Performed No -Post Debridement (cm) - Length 0 -Post Debridement (cm) - Width 0 -Post Debridement (cm) - Depth 0 -Total Square (Post) (cm) 0 -Wound/Ulcer Outcome Healed- Epithelialized #4 right medial dorsal cluster -Time 11:08 -Correct Patient Yes -Correct Side, Site, Position Yes -Correct Procedure Yes -Procedure Performed No -Post Debridement (cm) - Length 0 -Post Debridement (cm) - Width 0 -Post Debridement (cm) - Depth 0 -Total Square (Post) (cm) 0 -Wound/Ulcer Outcome Healed- Epithelialized #3 right medial ankle -Time 11:08 10:53 -Correct Patient Yes Yes -Correct Side, Site, Position Yes Yes -Correct Procedure Yes Yes -Procedure Performed Yes Yes -Type of Procedure Debridement Debridement -Clinical Debridement Subcutaneous Subcutaneous -Tissue Removed Subcutaneous Subcutaneous -Post Debridement (cm) - Length 2.8 1.3 -Post Debridement (cm) - Width 1.6 1.1 -Post Debridement (cm) - Depth 0.2 0.2 -Total Square (Post) (cm) 4.48 1.43 -Area of Debridement (cm) - Length 2.8 1.3 -Area of Debridement (cm) - Width 1.6 1.1 -Total Square (Area) (cm) 4.48 1.43 -Tunneling No No -Undermining/Tunneling No No -Circular Undermining No No -Wound/Ulcer Outcome Not Healed Not Healed -Ulcer Cleansing Rinsed/ Rinsed/ Irrigated with Irrigated with Saline Saline -Foul Odor after Cleansing No No -Bioengineered Tissue No No -Bleeding Controlled with Pressure Pressure -Offloading No Yes -Type of Offloading Surgical Shoe -Treatment Response Procedure Tolerated Well -Debridement - Subq, 1st 20sq cm No No #1 Left Plantar medial -Time 11:05 10:53 -Correct Patient Yes Yes -Correct Side, Site, Position Yes Yes -Correct Procedure Yes Yes -Procedure Performed Yes Yes -Type of Procedure Debridement Debridement -Clinical Debridement Subcutaneous Subcutaneous -Tissue Removed Subcutaneous Subcutaneous -Post Debridement (cm) - Length 2.2 1.5 -Post Debridement (cm) - Width 2.2 1.1 -Post Debridement (cm) - Depth 4 0.7 -Total Square (Post) (cm) 4.84 1.65 -Area of Debridement (cm) - Length 2.2 1.4 -Area of Debridement (cm) - Width 2.2 1.1 -Total Square (Area) (cm) 4.84 1.54 -Tunneling No No -Undermining/Tunneling No No -Circular Undermining No No -Wound/Ulcer Outcome Not Healed Not Healed -Ulcer Cleansing Rinsed/ Rinsed/ Irrigated with Irrigated with Saline Saline -Foul Odor after Cleansing No No -Bioengineered Tissue Yes Yes -Type of Bioengineered Tissue Epifix Epifix -Expiration Date 02/20/25 02/20/25 -Product Lot Number [id number] -Percent Used 100 100 -Saline Lot Number [id number] -Bleeding Controlled with Pressure Pressure -Offloading No Yes -Type of Offloading Total Contact Cast (TCC) - Left ($) -Treatment Response Procedure Tolerated Well -Debridement - Subq, 1st 20sq cm No No -Apply Skin Sub - 1st 25 sq cm - Feet 1 1 -Epifix (per sq cm) 4 4 Pain Scale: 0-10 Numeric Is Patient Pain Free? Yes Yes - Nurse 3 - General Ulcer D/C NN Start: 06/22/20 11:33 Freq: Status: Active Protocol: Activity Type Activity Date Activity User E-Sign Co-Sign Detail Recorded Client Recorded Date Recorded By Document 06/23/20 11:19 [id number] 06/23/20 11:25 Document 06/27/20 10:20 JF [id number] 06/27/20 10:25 JF Document 06/28/20 11:26 DL [id number] 06/28/20 11:31 DL Document 07/04/20 10:49 [id number] 07/04/20 10:59 06/23/20 06/27/20 06/28/20 11:19 10:20 11:26 Wound Care Nurse 3 #9 right lateral plantar -Ulcer Cleansing Wound Cleanser -Foul Odor after Cleansing No -Primary Dressing Applied Aquacel AG 4x4 -Primary Dressing Covered/Secured with Dry Gauze & Roll Gauze, Secured with Tape -Aquacel AG 4x4 1 #3 right medial ankle -Ulcer Cleansing Wound Cleanser -Foul Odor after Cleansing No -Other Dressing Aguacel AG -Primary Dressing Covered/Secured with Dry Gauze & Roll Gauze, Secured with Tape #1 Left Plantar medial -Ulcer Cleansing Wound Cleanser -Foul Odor after Cleansing No -Other Dressing Epifix -Primary Dressing Covered/Secured with Dry Gauze & Roll Gauze, Secured with Tape -Other Covering TCC Undercasting Size 3 Treatment Response Procedure Tolerated Well Vital Signs Pulse Rate (60-100) 77 Pulse Location Monitor Blood Pressure (90/60-120/80) 153/69 H Blood Pressure Mean (mm Hg) 97 Source Monitor Pain Scale: 0-10 Numeric Is Patient Pain Free? Yes Yes Yes - Visit Discharge Discharge Condition Stable Stable Stable Ambulatory Status Ambulatory Ambulatory Ambulatory Transportation private Private Auto transportation Medication Reconcilliation completed & Yes Yes provided to patient/care provider Clinical Summary of Care Provided Yes Yes Notes: Personal transport thru his insurance. Facility Type Home Health Orders Sent Yes 07/04/20 10:49 Wound Care Nurse 3 #9 right lateral plantar -Ulcer Cleansing -Foul Odor after Cleansing -Primary Dressing Applied -Primary Dressing Covered/Secured with -Aquacel AG 4x4 #3 right medial ankle -Ulcer Cleansing -Foul Odor after Cleansing -Other Dressing -Primary Dressing Covered/Secured with #1 Left Plantar medial -Ulcer Cleansing -Foul Odor after Cleansing -Other Dressing -Primary Dressing Covered/Secured with -Other Covering Treatment Response Vital Signs Pulse Rate (60-100) Pulse Location Blood Pressure (90/60-120/80) Blood Pressure Mean (mm Hg) Source Pain Scale: 0-10 Numeric Is Patient Pain Free? WC - Visit Discharge Discharge Condition Stable Ambulatory Status Ambulatory Transportation Private Auto Medication Reconcilliation completed & Yes provided to patient/care provider Clinical Summary of Care Provided Yes Notes: Facility Type Orders Sent Wound debrided: plantar medial foot Laterality: Left Wound Grade/Stage: grade 3 Type of Debridement: Excisional debridement Anesthesia Used: 5% Lidocaine Gel Depth: in the subcutaneous layer Percentage of wound debrided: 100 Instrument Used: #15 blade Tissue Removed: fibrous, devitalized subcutaneous, biofilm, slough Severity: Fat Layer Exposed Amount of bleeding with debridement: Mild Bleeding Controlled with: Pressure Patient tolerated procedure well - Additional Wound Wound debrided: medial ankle, sub 5th metatarsal head Laterality: Right Wound Grade/Stage: grade 1 Type of Debridement: Excisional debridement Anesthesia Used: 5% Lidocaine Gel Depth: in the subcutaneous layer Percentage of wound debrided: 100 Instrument Used: #15 blade Tissue Removed: fibrous, devitalized subcutaneous, biofilm, slough Severity: Fat Layer Exposed Amount of bleeding with debridement: Mild Bleeding Controlled with: Pressure Patient tolerated procedure: Patient tolerated procedure well Assessment/Plan Active Problems (Last Reviewed 04/24/20 @ 15:[address] Juan Arteaga MD) Ulcer of right foot with fat layer exposed (Chronic) Chronic ulcer of left foot with fat layer exposed (Chronic) Osteomyelitis of left foot (Chronic) Delayed wound healing (Chronic) Tobacco abuse counseling (Chronic) Type 2 diabetes mellitus with diabetic polyneuropathy (Chronic) Assessment: Left plantar medial foot ulcer, [place] Grade 3 (recent status change from fat layer exposed to tendon layer exposure now that is devitalized). right foot ulcers include plantar lateral, medial ankle - [place] grade 1. Other dorsal toe ulcers are healed with epithelialization noted. Cellulitis right foot resolved. Morbid obesity. 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 Subcutaneous excisional debridement was performed as noted in the clinical panel to the left foot and right foot and lower leg. His ulcer status has improved bilateral. There is no longer any tendon exposed today on the left foot. epi-fix, rated well and patient is healing well. The benefits, indications, anticipated application, healing time management were reviewed. This was applied according standard protocol and further secured with a wound veil and Steri-Strips. He tolerated this well to the left foot. He did well with a total contact cast last week and there is been significant reduction in inflammation and callus formation. I recommend application today. Verbal consent was obtained and this was applied according to standard protocol in a neutral position well-padded manner to the left foot. He tolerated this well. He was advised to keep this clean, dry, and intact until follow-up next week. His right foot ulcer sites were also debrided as noted in the clinical panel. To change dressing daily with [email or web address] Ag. To offload by heel weightbearing in a surgical shoe which was previously provided. I discussed other offloading techniques such as using a walker or a knee roller for the left limb. His noninvasive vascular studies were reviewed from which were normal and intervention was previously not recommended. I advised him to follow-up with all of Dr. Bonilla's recommendations to optimize his healing process. He has for help scheduling this because he has not been able to do this. He has recently been seen and intervention is planned for arterial optimization. An updated bilateral duplex was also recommended to help with planning. He had an updated left foot x-ray which did not demonstrate any new progressive osseous destruction, soft tissue emphysema, fracture, dislocation, or foreign body. I recommend that he sees infectious disease because he is very high risk and input is greatly appreciated. He had recent multi-organism culture (MRSA, E facealis, klebs, strep, corynebacterium) results and cellulitis clinical signs to the right foot. These have improved since he started linezolid and Levaquin over the weekend. He completed a course of antibiotics and has responded well. His right foot x-rays reviewed without any osseous destruction. 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 To continue with hyperbaric oxygen therapy which appears to be helping. I recommend continued course due to his positive response. This is medically necessary and he is responding well and making appropriate progress. It is noted his nutrition, vascular, and medical status is optimized. To continue to work on decreasing glucose levels. He has a history of hyperglycemia. To continue to follow-up with nutritional services. To continue to follow-up as advised. He is currently making adjustments with his eating habits. He also follows up with site superintendent, Dr. Arteaga who is working with him to reduce his hemoglobin A1c with medication and behavioral changes. Smoking cessation was discussed in detail and he was advised on the healing impairment associated with this. To continue with his smoking cessation program. I also recommend discontinuation of nicotine products for this also contributes to small vessel contraction. He has demonstrated appropriate stabilization from an ulcer standpoint with recent qualit I answered all of his questions today. To return to clinic in 1 week or call sooner if questions, concerns, or progressive worsening.
[2020-07-06 08:26] LABS: Bedside Glucose 211 mg/dL (70-110)
[2020-07-06 08:35] VITALS: BP 140/65; BP 169/65; PULSE 79; PULSE 93; RESP 18; TEMP 36.2
--- NOTE | 2020-07-06 09:04 | HBO.PN.PCM_ITS ---
History of Present Illness Date of Service: 07/06/20 Presenting Chief Complaint: Diabetic left foot ulceration, [place] Grade 3, with infection. Right foot ulcers with recent infection GEN SIM is a 65 year old currently undergoing hyperbaric oxygen therapy for diabetic left foot infection, Manc[place] grade 3. Progress: Today's session represents the 41st session of hyperbaric oxygen therapy, of an expected 40 such treatments. Tolerance of hyperbaric oxygen therapy: Hyperbaric oxygen therapy was a dministered as per the facility's protocol. Hyperbaric oxygen therapy was administered for 90 minutes at 2 silas, with two 5-minute air breaks. Upon emergence from the hyperbaric oxygen chamber the patient had no complaints or complications. The patient's vital signs remained stable. The patient was discharged in good condition. His pre-and post- HBO blood sugars are recorded elsewhere. Past Medical History Chronic Problems (Last Reviewed 04/24/20 @ 15:[address] Juan Artegaa MD) MRSA (methicillin resistant staph aureus) culture positive (Chronic) Ulcer of left foot with necrosis of muscle (Chronic) History of transmetatarsal amputation of left foot (Chronic) Ulcer of right foot with fat layer exposed (Chronic) Obesity (Chronic) Tobacco abuse (Chronic) Osteomyelitis, unspecified (Chronic) Chronic ulcer of left foot with fat layer exposed (Chronic) Osteomyelitis of left foot (Chronic) Diabetic ulcer of left foot (Chronic) Other specified peripheral vascular diseases (Chronic) Delayed wound healing (Chronic) Difficulty in walking, not elsewhere classified (Chronic) 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) Tobacco abuse counseling (Chronic) Mixed hyperlipidemia (Chronic) Benign essential hypertension (Chronic) 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) Diabetes (Chronic) Type 2 diabetes mellitus (Chronic) Obstructive sleep apnea (Chronic) Uncontrolled diabetes mellitus (Chronic) Diabetic infection of left foot (Chronic) Osteomyelitis of great toe of left foot (Chronic) Morbid obesity due to excess calories (Chronic) Tobacco dependence due to cigarettes (Chronic) Diabetic neuropathy (Chronic) Hypertension (Chronic) 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) Allergies/Adverse Reactions: Allergies Sulfa (Sulfonamide Antibiotics) Allergy (Verified 05/24/20 10:13) Rash Home Medications: Ambulatory Orders Medication Instructions Recorded Calcium Carbonate [Calcium] 500 mg PO DAILY 06/23/17 Multivitamin [Multiple Vitamins] 1 ea PO DAILY 06/23/17 aspirin 81 mg tablet,delayed 81 mg PO DAILY 08/12/19 release atorvastatin 40 mg tablet 40 mg PO DAILY 10/18/19 bupropion HCl 150 mg 24 hr tablet, 150 mg PO BID tab 10/18/19 extended release lisinopril 10 mg tablet 10 mg PO DAILY 10/18/19 tamsulosin 0.4 mg capsule 0.4 mg PO DAILY@1730 cap 10/18/19 blood sugar diagnostic See Rx Instructions .ROUTE 10/28/19 .MEDSUPPLY #100 ea lancets 33 gauge See Rx Instructions .ROUTE 10/28/19 .MEDSUPPLY #100 ea gabapentin 300 mg capsule 600 mg PO TIDCM cap 04/24/20 insulin regular hum U-500 conc 145 unit SC TID #27 ml 05/12/20 Linezolid 600 mg PO DAILY #7 tab 06/14/20 levoFLOXacin tablet [Levaquin 500 mg PO DAILY #7 tab 06/14/20 tablet] Maternal Family History: Family History (Last Reviewed 04/24/20 @ 15:[address] Juan Arteaga MD) Father Myocardial infarction Heart disease Mother Kidney disease Diabetes Sister Asthma Breast cancer Hypertension Brother Alcoholism Melanoma Family History: Diabetes, Renal Disease - on dialysis Paternal Family History: Family History (Last Reviewed 04/24/20 @ 15:[address] uJan Arteaga MD) Father Myocardial infarction Heart disease Mother Kidney disease Diabetes Sister Asthma Breast cancer Hypertension Brother Alcoholism Melanoma Family History: Heart Disease Sibling Family History: Family History (Last Reviewed 04/24/20 @ 15:[address] Juan Arteaga MD) Father Myocardial infarction Heart disease Mother Kidney disease Diabetes Sister Asthma Breast cancer Hypertension Brother Alcoholism Melanoma Family History: Cancer - breast cancer in his sister Smoking Status: Heavy Smoker (>10/day) Tobacco Use: Cigarettes Alcohol: None Drugs: None Physical Exam Vital Signs Temp Pulse Resp BP 97.2 F L 93 18 169/65 H 07/06/20 08:35 07/06/20 08:35 07/06/20 08:35 07/06/20 08:35 General: Alert, Oriented x3, Cooperative, No apparent distress HEENT: Atraumatic, TM's Clear Lungs: Clear to auscultation, Normal air movement Cardiovascular: Regular rate, Regular Rhythm Psych/Mental Status: Normal Affect, Appropriate, Alert and oriented to time, place, person, mood and affect Assessment/Plan Active Problems (Last Reviewed 04/24/20 @ 15:[address] Juan Arteaga MD) Ulcer of right foot with fat layer exposed (Chronic) Chronic ulcer of left foot with fat layer exposed (Chronic) Osteomyelitis of left foot (Chronic) Delayed wound healing (Chronic) Tobacco abuse counseling (Chronic) Type 2 diabetes mellitus with diabetic polyneuropathy (Chronic) Treatment Course Number Number of HBO Treatments 50 Ordered Treatment Course Number 1 Treatment # 41 Chamber # [id number] Chamber Type Monoplace HBO Diagnosis/Indication Diagnosis/Indication(s) for Left Diabetic Foot Ulcer Hyperbaric Therapy Classification - [place] Grade 2 Grading (Diabetic Ulcer) [] Classification - [place] Grade 2 Grading (Diabetic Ulcer) [] Classification - [place] Grade 3 Grading (Diabetic Ulcer) Diabetes - Detail Diabetes Diabetes Type II Diabetes Control Uncontrolled Left Extremity Ulcer, Other part of Foot Treatment Plan MARTITA (Atmospheric Absolute) 2 Number of Minutes 90 Number of Air Breaks 2
[2020-07-06 11:00] LABS: Bedside Glucose 152 mg/dL (70-110)
[2020-07-07 08:10] LABS: Bedside Glucose 196 mg/dL (70-110)
[2020-07-07 10:56] LABS: Bedside Glucose 210 mg/dL (70-110)
--- NOTE | 2020-07-07 12:23 | HBO.PN.PCM_ITS ---
History of Present Illness Date of Service: 07/07/20 Presenting Chief Complaint: Diabetic left foot ulceration, [place] Grade 3, with infection. Right foot ulcers with recent infection GEN SIM is a 65 year old currently undergoing hyperbaric oxygen therapy for diabetic left foot infection, [place] grade 3. Progress: Today's session represents the 42nd session of hyperbaric oxygen therapy, of an expected 60 such treatments. Tolerance of hyperbaric oxygen therapy: Hyperbaric oxygen therapy was a dministered as per the facility's protocol. Hyperbaric oxygen therapy was administered for 90 minutes at 2 silas, with two 5-minute air breaks. Upon emergence from the hyperbaric oxygen chamber the patient had no complaints or complications. The patient's vital signs remained stable. The patient was discharged in good condition. His pre-and post- HBO blood sugars are recorded elsewhere and were appropriate for treatment. Past Medical History Chronic Problems (Last Reviewed 04/24/20 @ 15:[address] 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) History of transmetatarsal amputation of left foot (Chronic) Ulcer of right foot with fat layer exposed (Chronic) Obesity (Chronic) Tobacco abuse (Chronic) Osteomyelitis, unspecified (Chronic) Chronic ulcer of left foot with fat layer exposed (Chronic) Osteomyelitis of left foot (Chronic) Diabetic ulcer of left foot (Chronic) Other specified peripheral vascular diseases (Chronic) Delayed wound healing (Chronic) Difficulty in walking, not elsewhere classified (Chronic) 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) Tobacco abuse counseling (Chronic) Mixed hyperlipidemia (Chronic) Benign essential hypertension (Chronic) 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) Diabetes (Chronic) Type 2 diabetes mellitus (Chronic) Obstructive sleep apnea (Chronic) Uncontrolled diabetes mellitus (Chronic) Diabetic infection of left foot (Chronic) Osteomyelitis of great toe of left foot (Chronic) Morbid obesity due to excess calories (Chronic) Tobacco dependence due to cigarettes (Chronic) Diabetic neuropathy (Chronic) Hypertension (Chronic) 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) Allergies/Adverse Reactions: Allergies Sulfa (Sulfonamide Antibiotics) Allergy (Verified 05/24/20 10:13) Rash Home Medications: Ambulatory Orders Medication Instructions Recorded Calcium Carbonate [Calcium] 500 mg PO DAILY 06/23/17 Multivitamin [Multiple Vitamins] 1 ea PO DAILY 06/23/17 aspirin 81 mg tablet,delayed 81 mg PO DAILY 08/12/19 release atorvastatin 40 mg tablet 40 mg PO DAILY 10/18/19 bupropion HCl 150 mg 24 hr tablet, 150 mg PO BID tab 10/18/19 extended release lisinopril 10 mg tablet 10 mg PO DAILY 10/18/19 tamsulosin 0.4 mg capsule 0.4 mg PO DAILY@1730 cap 10/18/19 blood sugar diagnostic See Rx Instructions .ROUTE 10/28/19 .MEDSUPPLY #100 ea lancets 33 gauge See Rx Instructions .ROUTE 10/28/19 .MEDSUPPLY #100 ea gabapentin 300 mg capsule 600 mg PO TIDCM cap 04/24/20 insulin regular hum U-500 conc 145 unit SC TID #27 ml 05/12/20 Linezolid 600 mg PO DAILY #7 tab 06/14/20 levoFLOXacin tablet [Levaquin 500 mg PO DAILY #7 tab 06/14/20 tablet] Maternal Family History: Family History (Last Reviewed 04/24/20 @ 15:[address] Juan Arteaga MD) Father Myocardial infarction Heart disease Mother Kidney disease Diabetes Sister Asthma Breast cancer Hypertension Brother Alcoholism Melanoma Family History: Diabetes, Renal Disease - on dialysis Paternal Family History: Family History (Last Reviewed 04/24/20 @ 15:[address] Juan Arteaga MD) Father Myocardial infarction Heart disease Mother Kidney disease Diabetes Sister Asthma Breast cancer Hypertension Brother Alcoholism Melanoma Family History: Heart Disease Sibling Family History: Family History (Last Reviewed 04/24/20 @ 15:[address] Juan Arteaga MD) Father Myocardial infarction Heart disease Mother Kidney disease Diabetes Sister Asthma Breast cancer Hypertension Brother Alcoholism Melanoma Family History: Cancer - breast cancer in his sister Smoking Status: Heavy Smoker (>10/day) Tobacco Use: Cigarettes Alcohol: None Drugs: None Physical Exam Vital Signs Temp Pulse Resp BP 97.2 F L 93 18 169/65 H 07/06/20 08:35 07/06/20 08:35 07/06/20 08:35 07/06/20 08:35 General: Alert, Oriented x3, Cooperative, No apparent distress Psych/Mental Status: Normal Affect, Appropriate Assessment/Plan Active Problems (Last Reviewed 04/24/20 @ 15:[address] Juan Arteaga MD) Ulcer of right foot with fat layer exposed (Chronic) Chronic ulcer of left foot with fat layer exposed (Chronic) Osteomyelitis of left foot (Chronic) Delayed wound healing (Chronic) Tobacco abuse counseling (Chronic) Type 2 diabetes mellitus with diabetic polyneuropathy (Chronic) The patient appears to be tolerating hyperbaric oxygen therapy well, which will be continued as per the patient's medical plan. Treatment Course Number Number of HBO Treatments 50 Ordered Treatment Course Number 1 Treatment # 41 Chamber # [id number] Chamber Type Monoplace HBO Diagnosis/Indication Diagnosis/Indication(s) for Left Diabetic Foot Ulcer Hyperbaric Therapy Classification - [place] Grade 2 Grading (Diabetic Ulcer) [] Classification - [place] Grade 2 Grading (Diabetic Ulcer) [] Classification - [place] Grade 3 Grading (Diabetic Ulcer) Diabetes - Detail Diabetes Diabetes Type II Diabetes Control Uncontrolled Left Extremity Ulcer, Other part of Foot Treatment Plan MARTITA (Atmospheric Absolute) 2 Number of Minutes 90 Number of Air Breaks 2
[2020-07-07 13:22] VITALS: BP 156/73; BP 168/68; PULSE 73; PULSE 96; RESP 16; RESP 18; TEMP 36.3; TEMP 36.7
[2020-07-11 08:25] LABS: Bedside Glucose 118 mg/dL (70-110)
[2020-07-11 08:56] LABS: Bedside Glucose 138 mg/dL (70-110)
[2020-07-11 08:56] LABS: Bedside Glucose 127 mg/dL (70-110)
[2020-07-11 10:35] LABS: Bedside Glucose 181 mg/dL (70-110)
[2020-07-11 10:40] VITALS: BP 151/68; BP 160/77; PULSE 113; PULSE 77; RESP 16; TEMP 35.9; TEMP 36.7
--- NOTE | 2020-07-11 13:30 | HBO.PN.PCM_ITS ---
History of Present Illness Date of Service: 07/11/20 Presenting Chief Complaint: Diabetic left foot ulceration, [place] Grade 3, with infection. Right foot ulcers with recent infection GEN SIM is a 65 year old currently undergoing hyperbaric oxygen therapy for diabetic left foot infection, [place] grade 3. Progress: Today's session represents the 43rd session of hyperbaric oxygen therapy, of an expected 60 such treatments. Tolerance of hyperbaric oxygen therapy: Hyperbaric oxygen therapy was a dministered as per the facility's protocol. Hyperbaric oxygen therapy was administered for 90 minutes at 2 silas, with two 5-minute air breaks. Upon emergence from the hyperbaric oxygen chamber the patient had no complaints or complications. The patient's vital signs remained stable. The patient was discharged in good condition. His pre-and post- HBO blood sugars are recorded elsewhere and were appropriate for treatment. Past Medical History Chronic Problems (Last Reviewed 04/24/20 @ 15:[address] 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) History of transmetatarsal amputation of left foot (Chronic) Ulcer of right foot with fat layer exposed (Chronic) Obesity (Chronic) Tobacco abuse (Chronic) Osteomyelitis, unspecified (Chronic) Chronic ulcer of left foot with fat layer exposed (Chronic) Osteomyelitis of left foot (Chronic) Diabetic ulcer of left foot (Chronic) Other specified peripheral vascular diseases (Chronic) Delayed wound healing (Chronic) Difficulty in walking, not elsewhere classified (Chronic) 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) Tobacco abuse counseling (Chronic) Mixed hyperlipidemia (Chronic) Benign essential hypertension (Chronic) 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) Diabetes (Chronic) Type 2 diabetes mellitus (Chronic) Obstructive sleep apnea (Chronic) Uncontrolled diabetes mellitus (Chronic) Diabetic infection of left foot (Chronic) Osteomyelitis of great toe of left foot (Chronic) Morbid obesity due to excess calories (Chronic) Tobacco dependence due to cigarettes (Chronic) Diabetic neuropathy (Chronic) Hypertension (Chronic) 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) Allergies/Adverse Reactions: Allergies Sulfa (Sulfonamide Antibiotics) Allergy (Verified 05/24/20 10:13) Rash Home Medications: Ambulatory Orders Medication Instructions Recorded Calcium Carbonate [Calcium] 500 mg PO DAILY 06/23/17 Multivitamin [Multiple Vitamins] 1 ea PO DAILY 06/23/17 aspirin 81 mg tablet,delayed 81 mg PO DAILY 08/12/19 release atorvastatin 40 mg tablet 40 mg PO DAILY 10/18/19 bupropion HCl 150 mg 24 hr tablet, 150 mg PO BID tab 10/18/19 extended release lisinopril 10 mg tablet 10 mg PO DAILY 10/18/19 tamsulosin 0.4 mg capsule 0.4 mg PO DAILY@1730 cap 10/18/19 blood sugar diagnostic See Rx Instructions .ROUTE 10/28/19 .MEDSUPPLY #100 ea lancets 33 gauge See Rx Instructions .ROUTE 10/28/19 .MEDSUPPLY #100 ea gabapentin 300 mg capsule 600 mg PO TIDCM cap 04/24/20 insulin regular hum U-500 conc 145 unit SC TID #27 ml 05/12/20 Linezolid 600 mg PO DAILY #7 tab 06/14/20 levoFLOXacin tablet [Levaquin 500 mg PO DAILY #7 tab 06/14/20 tablet] Maternal Family History: Family History (Last Reviewed 04/24/20 @ 15:[address] Juan Arteaga MD) Father Myocardial infarction Heart disease Mother Kidney disease Diabetes Sister Asthma Breast cancer Hypertension Brother Alcoholism Melanoma Family History: Diabetes, Renal Disease - on dialysis Paternal Family History: Family History (Last Reviewed 04/24/20 @ 15:[address] Juan Arteaga MD) Father Myocardial infarction Heart disease Mother Kidney disease Diabetes Sister Asthma Breast cancer Hypertension Brother Alcoholism Melanoma Family History: Heart Disease Sibling Family History: Family History (Last Reviewed 04/24/20 @ 15:[address] Juan Arteaga MD) Father Myocardial infarction Heart disease Mother Kidney disease Diabetes Sister Asthma Breast cancer Hypertension Brother Alcoholism Melanoma Family History: Cancer - breast cancer in his sister Smoking Status: Heavy Smoker (>10/day) Tobacco Use: Cigarettes Alcohol: None Drugs: None Physical Exam Vital Signs Temp Pulse Resp BP 96.6 F L 113 H 16 151/68 H 07/11/20 10:40 07/11/20 10:40 07/11/20 10:40 07/11/20 10:40 General: Alert, Oriented x3, Cooperative, No apparent distress, Well developed, Well nourished HEENT: Atraumatic, PERRLA, EOMI, Normocephalic Lungs: Normal air movement Psych/Mental Status: Normal Affect, Appropriate, Alert and oriented to time, place, person, mood and affect Assessment/Plan Active Problems (Last Reviewed 04/24/20 @ 15:[address] Juan Arteaga MD) Ulcer of right foot with fat layer exposed (Chronic) Chronic ulcer of left foot with fat layer exposed (Chronic) Osteomyelitis of left foot (Chronic) Delayed wound healing (Chronic) Tobacco abuse counseling (Chronic) Type 2 diabetes mellitus with diabetic polyneuropathy (Chronic) The patient appears to be tolerating hyperbaric oxygen therapy well, which will be continued as per the patient's medical plan. Treatment Course Number Number of HBO Treatments 50 Ordered Treatment Course Number 1 Treatment # 43 Chamber # 2 Chamber Type Monoplace HBO Diagnosis/Indication Diagnosis/Indication(s) for Left Diabetic Foot Ulcer Hyperbaric Therapy Classification - [place] Grade 2 Grading (Diabetic Ulcer) [] Classification - [place] Grade 2 Grading (Diabetic Ulcer) [] Classification - [place] Grade 3 Grading (Diabetic Ulcer) Diabetes - Detail Diabetes Diabetes Type II Diabetes Control Uncontrolled Left Extremity Ulcer, Other part of Foot Treatment Plan MARTITA (Atmospheric Absolute) 2 Number of Minutes 90 Number of Air Breaks 2
[2020-07-12 09:50] LABS: Bedside Glucose 129 mg/dL (70-110)
[2020-07-12 09:50] LABS: Bedside Glucose 136 mg/dL (70-110)
[2020-07-12 09:50] LABS: Bedside Glucose 126 mg/dL (70-110)
[2020-07-12 10:42] VITALS: BP 151/63; PULSE 74; RESP 18; TEMP 36.4; BMI 42.8
[2020-07-12 10:56] LABS: Bedside Glucose 149 mg/dL (70-110)
--- NOTE | 2020-07-12 11:27 | PN.PCM_ITS ---
(1) Ulcer of right foot with fat layer exposed Status: Chronic Code(s): L97.512 - Non-pressure chronic ulcer of other part of right foot with fat layer exposed (2) Chronic ulcer of left foot with fat layer exposed Status: Chronic Code(s): L97.522 - Non-pressure chronic ulcer of other part of left foot with fat layer exposed (3) Osteomyelitis of left foot Status: Chronic Qualifiers: Code(s): M86.9 - Osteomyelitis, unspecified (4) Delayed wound healing Status: Chronic Code(s): T14.8XXD - Other injury of unspecified body region, subsequent encounter (5) Tobacco abuse counseling Status: Chronic Code(s): Z71.6 - Tobacco abuse counseling (6) Type 2 diabetes mellitus with diabetic polyneuropathy Status: Chronic Qualifiers: Code(s): E11.42 - Type 2 diabetes mellitus with diabetic polyneuropathy (7) Ulcer of right lower extremity with fat layer exposed Status: Chronic Code(s): L97.912 - Non-pressure chronic ulcer of unspecified part of right lower leg with fat layer exposed Type of Wound Date of Service: 07/12/20 Chief Complaint: Diabetic left foot ulceration, Mancilla Grade 3, with infection. Right foot ulcers with resolved infection and medial lower leg History of Wound: This 65-year-old male with multiple comorbidities was seen today for left foot ulcer. His left foot ulcer onset was 12-07-2019. He is previously known to me and had a left transmetatarsal amputation performed previously. He had a total contact cast applied last week and kept this clean, dry, and intact. He denies diarrhea, rash, fever, chill, nausea, vomiting. He also continues hyperbaric oxygen therapy. He denies redness or odor. He kept his total contact cast on the left lower extremity clean and intact this past week. Progress of Wound: Improving right. Stable left with recent maceration return - Physical Exam Vital Signs Temp Pulse Resp BP 97.6 F L 74 18 151/63 H 07/12/20 10:42 07/12/20 10:42 07/12/20 10:42 07/12/20 10:42 General: Alert, Oriented x3, Cooperative, No apparent distress HEENT: Atraumatic Extremities: No cyanosis, Capillary Refill Less than 3 Seconds, No Calf Tenderness, Diminished Peripheral Pulses, Edema Skin: Ulcer/ Wound - No purulence, erythema, streaking, odor, infection bilateral. Maceration in periwound moisture moderate left. The skin is atrophic and hairless bilateral lower extremities Wound Measurements and Assessment WC - Nurse 1 - General Ulcer Measurement Start: 06/22/20 11:33 Freq: Status: Active Protocol: Activity Type Activity Date Activity User E-Sign Co-Sign Detail Recorded Client Recorded Date Recorded By Document 07/12/20 10:42 DL [id number] 07/12/20 10:53 DL 07/12/20 10:42 Wound Center Nurse 1 [Ulcer Assessment] #9 right lateral plantar -Current Size (cm) - Length 1.8 -Current Size (cm) - Width 2.2 -Current Size (cm) - Depth 0.4 -Total Square Cm 3.96 -Photo Taken No -Exudate Amt Small -Exudate Type Serosanguineous -Wound Margin Thickened -Granulation Amt Large (67-100%) -Granulation Quality Red -Necrosis Amt Small (1-33%) -Necrotic Tissue Type Adherent Slough -Structure Exposed N/A -Texture (Maria M-wound Skin Appearance) Scarring -Moisture (Maria M-wound Skin Appearance Maceration ) -Color (Maria M-wound Skin Appearance) Hemosiderin Staining -Temperature (Maria M-wound Skin No Abnormality Appearance) (Pt Warm) -Tenderness on Palpation (Maria M-wound No Skin Appearance) -Ulcer Cleansing Wound Cleanser -Foul Odor after Cleansing No -Anesthetic Used 4% Lidocaine Solution #3 right medial ankle -Current Size (cm) - Length 2.6 -Current Size (cm) - Width 1.2 -Current Size (cm) - Depth 0.1 -Total Square Cm 3.12 -Photo Taken No -Exudate Amt Small -Exudate Type Serosanguineous -Wound Margin Distinct, Outline Attached -Granulation Amt Medium (34-66%) -Granulation Quality Red -Necrosis Amt Medium (34-66%) -Necrotic Tissue Type Adherent Slough -Structure Exposed N/A -Texture (Maria M-wound Skin Appearance) Scarring -Moisture (Maria M-wound Skin Appearance Dry/Scaly ) -Color (Maria M-wound Skin Appearance) Hemosiderin Staining -Temperature (Maria M-wound Skin No Abnormality Appearance) (Pt Warm) -Tenderness on Palpation (Maria M-wound No Skin Appearance) -Ulcer Cleansing Wound Cleanser -Foul Odor after Cleansing No -Anesthetic Used 4% Lidocaine Solution #1 Left Plantar medial -Current Size (cm) - Length 2.4 -Current Size (cm) - Width 1.5 -Current Size (cm) - Depth 0.7 -Total Square Cm 3.60 -Photo Taken No -Exudate Amt Medium -Exudate Type Serosanguineous -Wound Margin Indistinct, Non -Visible -Granulation Amt Small (1-33%) -Granulation Quality Red -Necrosis Amt Large (67-100%) -Necrotic Tissue Type Adherent Slough -Structure Exposed N/A -Texture (Maria M-wound Skin Appearance) Scarring -Moisture (Maria M-wound Skin Appearance Maceration ) -Color (Maria M-wound Skin Appearance) Hemosiderin Staining -Temperature (Maria M-wound Skin No Abnormality Appearance) (Pt Warm) -Tenderness on Palpation (Maria M-wound No Skin Appearance) -Ulcer Cleansing Wound Cleanser -Foul Odor after Cleansing No -Anesthetic Used 4% Lidocaine Solution WC - Nurse 2 - General Ulcer CM Notes Start: 06/22/20 11:33 Freq: Status: Active Protocol: Activity Type Activity Date Activity User E-Sign Co-Sign Detail Recorded Client Recorded Date Recorded By Document 07/12/20 11:01 [id number] 07/12/20 11:10 [email or web address] 07/12/20 11:01 Wound Center Nurse 2 [Procedure/Treatment] #9 right lateral plantar -Time 11:05 -Correct Patient Yes -Correct Side, Site, Position Yes -Correct Procedure Yes -Procedure Performed Yes -Type of Procedure Debridement -Clinical Debridement Subcutaneous -Tissue Removed Subcutaneous -Post Debridement (cm) - Length 1.8 -Post Debridement (cm) - Width 2.1 -Post Debridement (cm) - Depth 0.1 -Total Square (Post) (cm) 3.78 -Area of Debridement (cm) - Length 1.8 -Area of Debridement (cm) - Width 2.1 -Total Square (Area) (cm) 3.78 -Tunneling No -Undermining/Tunneling No -Circular Undermining No -Wound/Ulcer Outcome Not Healed -Ulcer Cleansing Rinsed/ Irrigated with Saline -Foul Odor after Cleansing No -Bioengineered Tissue No -Bleeding Controlled with Pressure -Offloading No -Type of Offloading Total Contact Cast (TCC) - Right ($) -Treatment Response Procedure Tolerated Well -Debridement - Subq, 1st 20sq cm Yes #3 right medial ankle -Time 11:06 -Correct Patient Yes -Correct Side, Site, Position Yes -Correct Procedure Yes -Procedure Performed Yes -Type of Procedure Debridement -Clinical Debridement Subcutaneous -Tissue Removed Subcutaneous -Post Debridement (cm) - Length 2.6 -Post Debridement (cm) - Width 1.3 -Post Debridement (cm) - Depth 0.1 -Total Square (Post) (cm) 3.38 -Area of Debridement (cm) - Length 2.6 -Area of Debridement (cm) - Width 1.3 -Total Square (Area) (cm) 3.38 -Tunneling No -Undermining/Tunneling No -Circular Undermining No -Wound/Ulcer Outcome Not Healed -Ulcer Cleansing Rinsed/ Irrigated with Saline -Foul Odor after Cleansing No -Bioengineered Tissue No -Bleeding Controlled with Pressure -Offloading No -Treatment Response Procedure Tolerated Well -Debridement - Subq, 1st 20sq cm No #1 Left Plantar medial -Time 11:10 -Correct Patient Yes -Correct Side, Site, Position Yes -Correct Procedure Yes -Procedure Performed Yes -Type of Procedure Debridement -Clinical Debridement Subcutaneous -Tissue Removed Subcutaneous -Post Debridement (cm) - Length 2.5 -Post Debridement (cm) - Width 1.5 -Post Debridement (cm) - Depth 0.7 -Total Square (Post) (cm) 3.75 -Area of Debridement (cm) - Length 2.5 -Area of Debridement (cm) - Width 1.5 -Total Square (Area) (cm) 3.75 -Tunneling No -Undermining/Tunneling No -Circular Undermining No -Wound/Ulcer Outcome Not Healed -Ulcer Cleansing Rinsed/ Irrigated with Saline -Foul Odor after Cleansing No -Bioengineered Tissue No -Bleeding Controlled with Pressure -Offloading Yes -Type of Offloading Surgical Shoe -Treatment Response Procedure Tolerated Well -Debridement - Subq, 1st 20sq cm No [See Physician Procedure note for Specifics] Pain Scale: 0-10 Numeric [Pain] -Is Patient Pain Free? Yes WC - Nurse 3 - General Ulcer D/C NN Start: 06/22/20 11:33 Freq: Status: Active Protocol: Activity Type Activity Date Activity User E-Sign Co-Sign Detail Recorded Client Recorded Date Recorded By Document 07/11/20 10:40 [id number] 07/11/20 10:59 07/11/20 10:40 -Is Patient Pain Free? Yes - Visit Discharge [Visit Discharge Information] -Discharge Condition Stable -Ambulatory Status Ambulatory -Transportation Private Auto -Accompanied by private transport -Medication Reconcilliation completed Yes & provided to patient/care provider -Clinical Summary of Care Provided Yes Musculoskeletal: No Tenderness to Palpation of Joints or Extremities, Muscle Wasting, - - Transmetatarsal amputation left. Prominent fifth metatarsal head right Neurological: - - Lack of normal epicritic sensation light touch is consistent with neuropathy status Psych/Mental Status: Normal Affect, Appropriate Debridement Note Post-Debridement Measurements/Treatment WC - Nurse 2 - General Ulcer CM Notes Start: 06/22/20 11:33 Freq: Status: Active Protocol: Activity Type Activity Date Activity User E-Sign Co-Sign Detail Recorded Client Recorded Date Recorded By Document 06/28/20 11:00 [id number] 06/28/20 11:16 Document 07/05/20 10:53 [id number] 07/05/20 11:02 Document 07/12/20 11:01 [id number] 07/12/20 11:10 06/28/20 07/05/20 07/12/20 11:00 10:53 11:01 Wound Center Nurse 2 #9 right lateral plantar -Time 11:01 10:57 11:05 -Correct Patient Yes Yes Yes -Correct Side, Site, Position Yes Yes Yes -Correct Procedure Yes Yes Yes -Procedure Performed Yes Yes Yes -Type of Procedure Debridement Debridement Debridement -Clinical Debridement Subcutaneous Subcutaneous Subcutaneous -Tissue Removed Subcutaneous Subcutaneous Subcutaneous -Post Debridement (cm) - Length 2.0 1.8 1.8 -Post Debridement (cm) - Width 2.0 2.3 2.1 -Post Debridement (cm) - Depth 0.3 0.7 0.1 -Total Square (Post) (cm) 4.00 4.14 3.78 -Area of Debridement (cm) - Length 2.0 1.8 1.8 -Area of Debridement (cm) - Width 2.0 2.3 2.1 -Total Square (Area) (cm) 4.00 4.14 3.78 -Tunneling No No No -Undermining/Tunneling No No No -Circular Undermining No No No -Wound/Ulcer Outcome Not Healed Not Healed Not Healed -Ulcer Cleansing Rinsed/ Rinsed/ Rinsed/ Irrigated with Irrigated with Irrigated with Saline Saline Saline -Foul Odor after Cleansing No No No -Bioengineered Tissue No No No -Bleeding Controlled with Pressure Pressure Pressure -Offloading No Yes No -Type of Offloading Total Contact Surgical Shoe Total Contact Cast (TCC) - Cast (TCC) - Left ($) Right ($) -Treatment Response Procedure Procedure Tolerated Well Tolerated Well -Debridement - Subq, 1st 20sq cm Yes Yes Yes #7 right 2nd toe -Time 11:06 -Correct Patient Yes -Correct Side, Site, Position Yes -Correct Procedure Yes -Procedure Performed No -Post Debridement (cm) - Length 0 -Post Debridement (cm) - Width 0 -Post Debridement (cm) - Depth 0 -Total Square (Post) (cm) 0 -Tunneling No -Undermining/Tunneling No -Circular Undermining No -Wound/Ulcer Outcome Healed- Epithelialized -Bleeding Controlled with NA #6 right lateral base great toe -Time 11:07 -Correct Patient Yes -Correct Side, Site, Position Yes -Correct Procedure Yes -Procedure Performed No -Post Debridement (cm) - Length 0 -Post Debridement (cm) - Width 0 -Post Debridement (cm) - Depth 0 -Total Square (Post) (cm) 0 -Wound/Ulcer Outcome Healed- Epithelialized #5 right great toe cluster -Time 11:08 -Correct Patient Yes -Correct Side, Site, Position Yes -Correct Procedure Yes -Procedure Performed No -Post Debridement (cm) - Length 0 -Post Debridement (cm) - Width 0 -Post Debridement (cm) - Depth 0 -Total Square (Post) (cm) 0 -Wound/Ulcer Outcome Healed- Epithelialized #4 right medial dorsal cluster -Time 11:08 -Correct Patient Yes -Correct Side, Site, Position Yes -Correct Procedure Yes -Procedure Performed No -Post Debridement (cm) - Length 0 -Post Debridement (cm) - Width 0 -Post Debridement (cm) - Depth 0 -Total Square (Post) (cm) 0 -Wound/Ulcer Outcome Healed- Epithelialized #3 right medial ankle -Time 11:08 10:53 11:06 -Correct Patient Yes Yes Yes -Correct Side, Site, Position Yes Yes Yes -Correct Procedure Yes Yes Yes -Procedure Performed Yes Yes Yes -Type of Procedure Debridement Debridement Debridement -Clinical Debridement Subcutaneous Subcutaneous Subcutaneous -Tissue Removed Subcutaneous Subcutaneous Subcutaneous -Post Debridement (cm) - Length 2.8 1.3 2.6 -Post Debridement (cm) - Width 1.6 1.1 1.3 -Post Debridement (cm) - Depth 0.2 0.2 0.1 -Total Square (Post) (cm) 4.48 1.43 3.38 -Area of Debridement (cm) - Length 2.8 1.3 2.6 -Area of Debridement (cm) - Width 1.6 1.1 1.3 -Total Square (Area) (cm) 4.48 1.43 3.38 -Tunneling No No No -Undermining/Tunneling No No No -Circular Undermining No No No -Wound/Ulcer Outcome Not Healed Not Healed Not Healed -Ulcer Cleansing Rinsed/ Rinsed/ Rinsed/ Irrigated with Irrigated with Irrigated with Saline Saline Saline -Foul Odor after Cleansing No No No -Bioengineered Tissue No No No -Bleeding Controlled with Pressure Pressure Pressure -Offloading No Yes No -Type of Offloading Surgical Shoe -Treatment Response Procedure Procedure Tolerated Well Tolerated Well -Debridement - Subq, 1st 20sq cm No No No #1 Left Plantar medial -Time 11:05 10:53 11:10 -Correct Patient Yes Yes Yes -Correct Side, Site, Position Yes Yes Yes -Correct Procedure Yes Yes Yes -Procedure Performed Yes Yes Yes -Type of Procedure Debridement Debridement Debridement -Clinical Debridement Subcutaneous Subcutaneous Subcutaneous -Tissue Removed Subcutaneous Subcutaneous Subcutaneous -Post Debridement (cm) - Length 2.2 1.5 2.5 -Post Debridement (cm) - Width 2.2 1.1 1.5 -Post Debridement (cm) - Depth 4 0.7 0.7 -Total Square (Post) (cm) 4.84 1.65 3.75 -Area of Debridement (cm) - Length 2.2 1.4 2.5 -Area of Debridement (cm) - Width 2.2 1.1 1.5 -Total Square (Area) (cm) 4.84 1.54 3.75 -Tunneling No No No -Undermining/Tunneling No No No -Circular Undermining No No No -Wound/Ulcer Outcome Not Healed Not Healed Not Healed -Ulcer Cleansing Rinsed/ Rinsed/ Rinsed/ Irrigated with Irrigated with Irrigated with Saline Saline Saline -Foul Odor after Cleansing No No No -Bioengineered Tissue Yes Yes No -Type of Bioengineered Tissue Epifix Epifix -Expiration Date 02/20/25 02/20/25 -Product Lot Number [id number] -Percent Used 100 100 -Saline Lot Number [id number] -Bleeding Controlled with Pressure Pressure Pressure -Offloading No Yes Yes -Type of Offloading Total Contact Surgical Shoe Cast (TCC) - Left ($) -Treatment Response Procedure Procedure Tolerated Well Tolerated Well -Debridement - Subq, 1st 20sq cm No No No -Apply Skin Sub - 1st 25 sq cm - Feet 1 1 -Epifix (per sq cm) 4 4 Pain Scale: 0-10 Numeric Is Patient Pain Free? Yes Yes Yes - Nurse 3 - General Ulcer D/C NN Start: 06/22/20 11:33 Freq: Status: Active Protocol: Activity Type Activity Date Activity User E-Sign Co-Sign Detail Recorded Client Recorded Date Recorded By Document 06/23/20 11:19 [id number] 06/23/20 11:25 Document 06/27/20 10:20 [id number] 06/27/20 10:25 Document 06/28/20 11:26 DL [id number] 06/28/20 11:31 DL Document 07/04/20 10:49 [id number] 07/04/20 10:59 Document 07/05/20 13:02 [facility] [id number] 07/05/20 13:04 [facility] Document 07/07/20 13:22 [id number] 07/07/20 13:25 Document 07/11/20 10:40 [id number] 07/11/20 10:59 06/23/20 06/27/20 06/28/20 11:19 10:20 11:26 Wound Care Nurse 3 #9 right lateral plantar -Ulcer Cleansing Wound Cleanser -Foul Odor after Cleansing No -Primary Dressing Applied Aquacel AG 4x4 -Primary Dressing Covered/Secured with Dry Gauze & Roll Gauze, Secured with Tape -Aquacel AG 4x4 1 #3 right medial ankle -Ulcer Cleansing Wound Cleanser -Foul Odor after Cleansing No -Primary Dressing Applied -Other Dressing Aguacel AG -Primary Dressing Covered/Secured with Dry Gauze & Roll Gauze, Secured with Tape -Aquacel AG 4x4 #1 Left Plantar medial -Ulcer Cleansing Wound Cleanser -Foul Odor after Cleansing No -Primary Dressing Applied -Other Dressing Epifix -Primary Dressing Covered/Secured with Dry Gauze & Roll Gauze, Secured with Tape -Other Covering TCC Undercasting Size 3 Left -Lotion applied to leg before compression wrap -Other Treatment Response Procedure Tolerated Well Vital Signs Pulse Rate (60-100) 77 Pulse Location Monitor Blood Pressure (90/60-120/80) 153/69 H Blood Pressure Mean (mm Hg) 97 Source Monitor Pain Scale: 0-10 Numeric Is Patient Pain Free? Yes Yes Yes WC - Visit Discharge Discharge Condition Stable Stable Stable Ambulatory Status Ambulatory Ambulatory Ambulatory Transportation private [employer] Auto transportation Accompanied by Medication Reconcilliation completed & Yes Yes provided to patient/care provider Clinical Summary of Care Provided Yes Yes Notes: Personal transport thru his insurance. Facility Type Home Health Orders Sent Yes 07/04/20 07/05/20 07/07/20 10:49 13:02 13:22 Wound Care Nurse 3 #9 right lateral plantar -Ulcer Cleansing Rinsed/ Irrigated with Saline -Foul Odor after Cleansing No -Primary Dressing Applied Aquacel AG 4x4 -Primary Dressing Covered/Secured with Dry Gauze & Roll Gauze, Secured with Tape -Aquacel AG 4x4 1 #3 right medial ankle -Ulcer Cleansing Rinsed/ Irrigated with Saline -Foul Odor after Cleansing No -Primary Dressing Applied Aquacel AG 4x4 -Other Dressing -Primary Dressing Covered/Secured with Dry Gauze & Roll Gauze, Secured with Tape -Aquacel AG 4x4 1 #1 Left Plantar medial -Ulcer Cleansing -Foul Odor after Cleansing -Primary Dressing Applied Other -Other Dressing epifix per md -Primary Dressing Covered/Secured with Dry Gauze, Secured with Tape,Other -Other Covering tcc undercast Left -Lotion applied to leg before No compression wrap -Other tcc undercast Treatment Response Procedure Tolerated Well Vital Signs Pulse Rate (60-100) Pulse Location Blood Pressure (90/60-120/80) Blood Pressure Mean (mm Hg) Source Pain Scale: 0-10 Numeric Is Patient Pain Free? Yes WC - Visit Discharge Discharge Condition Stable Stable Stable Ambulatory Status Ambulatory Ambulatory Ambulatory Transportation Private Auto Private Auto Private Auto Accompanied by Medication Reconcilliation completed & Yes Yes provided to patient/care provider Clinical Summary of Care Provided Yes Yes Notes: Facility Type Orders Sent 07/11/20 10:40 Wound Care Nurse 3 #9 right lateral plantar -Ulcer Cleansing -Foul Odor after Cleansing -Primary Dressing Applied -Primary Dressing Covered/Secured with -Aquacel AG 4x4 #3 right medial ankle -Ulcer Cleansing -Foul Odor after Cleansing -Primary Dressing Applied -Other Dressing -Primary Dressing Covered/Secured with -Aquacel AG 4x4 #1 Left Plantar medial -Ulcer Cleansing -Foul Odor after Cleansing -Primary Dressing Applied -Other Dressing -Primary Dressing Covered/Secured with -Other Covering Left -Lotion applied to leg before compression wrap -Other Treatment Response Vital Signs Pulse Rate (60-100) Pulse Location Blood Pressure (90/60-120/80) Blood Pressure Mean (mm Hg) Source Pain Scale: 0-10 Numeric Is Patient Pain Free? Yes WC - Visit Discharge Discharge Condition Stable Ambulatory Status Ambulatory Transportation Private Auto Accompanied by private transport Medication Reconcilliation completed & Yes provided to patient/care provider Clinical Summary of Care Provided Yes Notes: Facility Type Orders Sent Wound debrided: plantar medial foot Laterality: Left Wound Grade/Stage: grade 3 Type of Debridement: Excisional debridement Anesthesia Used: 5% Lidocaine Gel Depth: in the subcutaneous layer Percentage of wound debrided: 100 Instrument Used: #15 blade Tissue Removed: fibrous, devitalized subcutaneous, biofilm, slough Severity: Fat Layer Exposed Amount of bleeding with debridement: Mild Bleeding Controlled with: Pressure Patient tolerated procedure well - Additional Wound Wound debrided: sub 5th metataral head, medial lower leg/ankle Laterality: Right Wound Grade/Stage: grade 1 Type of Debridement: Excisional debridement Anesthesia Used: 5% Lidocaine Gel Depth: in the subcutaneous layer Percentage of wound debrided: 100 Instrument Used: #15 blade Tissue Removed: fibrous, devitalized subcutaneous, biofilm, slough Amount of bleeding with debridement: Mild Bleeding Controlled with: Pressure Patient tolerated procedure: Patient tolerated procedure well Assessment/Plan Active Problems (Last Reviewed 04/24/20 @ 15:[address] Juan Arteaga MD) Ulcer of right foot with fat layer exposed (Chronic) Chronic ulcer of left foot with fat layer exposed (Chronic) Osteomyelitis of left foot (Chronic) Delayed wound healing (Chronic) Tobacco abuse counseling (Chronic) Type 2 diabetes mellitus with diabetic polyneuropathy (Chronic) Assessment: Left plantar medial foot ulcer, Manc[place] Grade 3 -stable. right foot ulcers include plantar lateral, medial ankle - mancilla grade 1. Cellulitis right foot resolved. maceration left foot. Morbid obesity. 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 Subcutaneous excisional debridement was performed as noted in the clinical panel to the left foot and right foot and lower leg. His ulcer status has improved bilateral. There is no longer any tendon exposed today on the left foot. He did well with a total contact cast last week and there is been significant reduction in inflammation and callus formation. However there is maceration this week and I recommend taking a break and proceeding with daily soap and water wash with Dakin wet-to-dry dressing application. I do recommend a total contact cast for the right lower extremity at this time because he is taking a break from the left. We previously did not want to put a cast on bilateral lower extremities to prevent fall risk. Verbal consent was obtained and this was applied according to standard protocol in a neutral position well-padded manner to the left foot. He tolerated this well. He was advised to keep this clean, dry, and intact until follow-up next week. . I discussed other offloading techniques such as using a walker or a knee roller for the left limb. His noninvasive vascular studies were reviewed from which were normal and intervention was previously not recommended. I advised him to follow-up with all of Dr. Bonilla's recommendations to optimize his healing process. He has for help scheduling this because he has not been able to do this. He has recently been seen and intervention is planned for arterial optimization. An updated bilateral duplex was also recommended to help with planning. He had an updated left foot x-ray which did not demonstrate any new progressive osseous destruction, soft tissue emphysema, fracture, dislocation, or foreign body. I recommend that he sees infectious disease because he is very high risk and input is greatly appreciated. He had recent multi-organism culture (MRSA, E facealis, klebs, strep, corynebacterium) results and cellulitis clinical signs to the right foot. These have improved since he started linezolid and Levaquin over the weekend. He completed a course of antibiotics and has responded well. His right foot x-rays reviewed without any osseous destruction. 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 To continue with hyperbaric oxygen therapy which appears to be helping. I recommend continued course due to his positive response. This is medically necessary and he is responding well and making appropriate progress. It is noted his nutrition, vascular, and medical status is optimized. To continue to work on decreasing glucose levels. He has a history of hyperglycemia. To continue to follow-up with nutritional services. To continue to follow-up as advised. He is currently making adjustments with his eating habits. He also follows up with construction scheduler, Dr. Arteaga who is working with him to reduce his hemoglobin A1c with medication and behavioral changes. Smoking cessation was discussed in detail and he was advised on the healing impairment associated with this. To continue with his smoking cessation program. I also recommend discontinuation of nicotine products for this also contributes to small vessel contraction. I answered all of his questions today. To return to clinic in 1 week or call sooner if questions, concerns, or progressive worsening.
--- NOTE | 2020-07-12 12:05 | PCM.HBO.PN ---
History of Present Illness Date of Service: 07/12/20 Presenting Chief Complaint: Diabetic left foot ulceration, [place] Grade 3, with infection. Right foot ulcers with resolved infection and medial lower leg GEN SIM is a 65 year old currently undergoing hyperbaric oxygen therapy for diabetic left foot infection, [place] grade 3. Progress: Today's session represents the 44th session of hyperbaric oxygen therapy, of an expected 60 such treatments. Tolerance of hyperbaric oxygen therapy: Hyperbaric oxygen therapy was administered as per the facility's protocol. Hyperbaric oxygen therapy was administered for 90 minutes at 2 silas, with two 5-minute air breaks. Upon emergence from the hyperbaric oxygen chamber the patient had no complaints or complications. The patient's vital signs remained stable. The patient was discharged in good condition. His pre-and post- HBO blood sugars are recorded elsewhere and were appropriate for treatment. Past Medical History Chronic Problems (Last Reviewed 04/24/20 @ 15:[address] Juan Arteaga MD) Ulcer of right lower extremity with fat layer exposed (Chronic) MRSA (methicillin resistant staph aureus) culture positive (Chronic) Ulcer of left foot with necrosis of muscle (Chronic) History of transmetatarsal amputation of left foot (Chronic) Ulcer of right foot with fat layer exposed (Chronic) Obesity (Chronic) Tobacco abuse (Chronic) Osteomyelitis, unspecified (Chronic) Chronic ulcer of left foot with fat layer exposed (Chronic) Osteomyelitis of left foot (Chronic) Diabetic ulcer of left foot (Chronic) Other specified peripheral vascular diseases (Chronic) Delayed wound healing (Chronic) Difficulty in walking, not elsewhere classified (Chronic) 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) Tobacco abuse counseling (Chronic) Mixed hyperlipidemia (Chronic) Benign essential hypertension (Chronic) 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) Diabetes (Chronic) Type 2 diabetes mellitus (Chronic) Obstructive sleep apnea (Chronic) Uncontrolled diabetes mellitus (Chronic) Diabetic infection of left foot (Chronic) Osteomyelitis of great toe of left foot (Chronic) Morbid obesity due to excess calories (Chronic) Tobacco dependence due to cigarettes (Chronic) Diabetic neuropathy (Chronic) Hypertension (Chronic) 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) Allergies/Adverse Reactions: Allergies Sulfa (Sulfonamide Antibiotics) Allergy (Verified 05/24/20 10:13) Rash Home Medications: Ambulatory Orders Medication Instructions Recorded Calcium Carbonate [Calcium] 500 mg PO DAILY 06/23/17 Multivitamin [Multiple Vitamins] 1 ea PO DAILY 06/23/17 aspirin 81 mg tablet,delayed 81 mg PO DAILY 08/12/19 release atorvastatin 40 mg tablet 40 mg PO DAILY 10/18/19 bupropion HCl 150 mg 24 hr tablet, 150 mg PO BID tab 10/18/19 extended release lisinopril 10 mg tablet 10 mg PO DAILY 10/18/19 tamsulosin 0.4 mg capsule 0.4 mg PO DAILY@1730 cap 10/18/19 blood sugar diagnostic See Rx Instructions .ROUTE 10/28/19 .MEDSUPPLY #100 ea lancets 33 gauge See Rx Instructions .ROUTE 10/28/19 .MEDSUPPLY #100 ea gabapentin 300 mg capsule 600 mg PO TIDCM cap 04/24/20 insulin regular hum U-500 conc 145 unit SC TID #27 ml 05/12/20 Linezolid 600 mg PO DAILY #7 tab 06/14/20 levoFLOXacin tablet [Levaquin 500 mg PO DAILY #7 tab 06/14/20 tablet] Maternal Family History: Family History (Last Reviewed 04/24/20 @ 15:[address] Juan Arteaga MD) Father Myocardial infarction Heart disease Mother Kidney disease Diabetes Sister Asthma Breast cancer Hypertension Brother Alcoholism Melanoma Family History: Diabetes, Renal Disease - on dialysis Paternal Family History: Family History (Last Reviewed 04/24/20 @ 15:[address] Juan Arteaga MD) Father Myocardial infarction Heart disease Mother Kidney disease Diabetes Sister Asthma Breast cancer Hypertension Brother Alcoholism Melanoma Family History: Heart Disease Sibling Family History: Family History (Last Reviewed 04/24/20 @ 15:[address] Juan Arteaga MD) Father Myocardial infarction Heart disease Mother Kidney disease Diabetes Sister Asthma Breast cancer Hypertension Brother Alcoholism Melanoma Family History: Cancer - breast cancer in his sister Smoking Status: Heavy Smoker (>10/day) Tobacco Use: Cigarettes Alcohol: None Drugs: None Physical Exam Vital Signs Temp Pulse Resp BP 97.6 F L 74 18 151/63 H 07/12/20 10:42 07/12/20 10:42 07/12/20 10:42 07/12/20 10:42 Assessment/Plan Active Problems (Last Reviewed 04/24/20 @ 15:[address] Juan Arteaga MD) Ulcer of right lower extremity with fat layer exposed (Chronic) Ulcer of right foot with fat layer exposed (Chronic) Chronic ulcer of left foot with fat layer exposed (Chronic) Osteomyelitis of left foot (Chronic) Delayed wound healing (Chronic) Tobacco abuse counseling (Chronic) Type 2 diabetes mellitus with diabetic polyneuropathy (Chronic) The patient appears to be tolerating hyperbaric oxygen therapy well, which will be continued as per the patient's medical plan. Treatment Course Number Number of HBO Treatments 50 Ordered Treatment Course Number 1 Treatment # 43 Chamber # 2 Chamber Type Monoplace HBO Diagnosis/Indication Diagnosis/Indication(s) for Left Diabetic Foot Ulcer Hyperbaric Therapy Classification - [place] Grade 2 Grading (Diabetic Ulcer) [#2 right 5th metatarsal] Classification - [place] Grade 2 Grading (Diabetic Ulcer) [#1 Left Plantar medial] Classification - [place] Grade 3 Grading (Diabetic Ulcer) Diabetes - Detail Diabetes Diabetes Type II Diabetes Control Uncontrolled Left Extremity Ulcer, Other part of Foot Treatment Plan MARTITA (Atmospheric Absolute) 2 Number of Minutes 90 Number of Air Breaks 2
[2020-07-12 16:49] VITALS: BP 143/70; BP 151/63; PULSE 74; PULSE 96; RESP 18; TEMP 35.9; TEMP 36.4
[2020-07-13 08:56] LABS: Bedside Glucose 191 mg/dL (70-110)
[2020-07-13 10:00] LABS: Bedside Glucose 191 mg/dL (70-110)
[2020-07-13 11:11] VITALS: BP 157/64; BP 159/70; PULSE 74; PULSE 87; RESP 18; TEMP 36.5; TEMP 36.6
--- NOTE | 2020-07-13 12:08 | PCM.HBO.PN ---
History of Present Illness Date of Service: 07/13/20 Presenting Chief Complaint: Diabetic left foot ulceration, [place] Grade 3, with infection. Right foot ulcers with resolved infection and medial lower leg GEN SIM is a 65 year old currently undergoing hyperbaric oxygen therapy for diabetic left foot infection, [place] grade 3. Progress: Today's session represents the 45th session of hyperbaric oxygen therapy, of an expected 60 such treatments. Tolerance of hyperbaric oxygen therapy: Hyperbaric oxygen therapy was administered as per the facility's protocol. Hyperbaric oxygen therapy was administered for 80 minutes at 2 silas, with two 5-minute air breaks. Patient discontinued 10 minutes earlier due to being hot. Upon emergence from the hyperbaric oxygen chamber the patient had no complaints or complications. The patient's vital signs remained stable. The patient was discharged in good condition. His pre-and post- HBO blood sugars are recorded elsewhere and were appropriate for treatment. Past Medical History Chronic Problems (Last Reviewed 04/24/20 @ 15:[address] Juan Arteaga MD) Ulcer of right lower extremity with fat layer exposed (Chronic) MRSA (methicillin resistant staph aureus) culture positive (Chronic) Ulcer of left foot with necrosis of muscle (Chronic) History of transmetatarsal amputation of left foot (Chronic) Ulcer of right foot with fat layer exposed (Chronic) Obesity (Chronic) Tobacco abuse (Chronic) Osteomyelitis, unspecified (Chronic) Chronic ulcer of left foot with fat layer exposed (Chronic) Osteomyelitis of left foot (Chronic) Diabetic ulcer of left foot (Chronic) Other specified peripheral vascular diseases (Chronic) Delayed wound healing (Chronic) Difficulty in walking, not elsewhere classified (Chronic) 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) Tobacco abuse counseling (Chronic) Mixed hyperlipidemia (Chronic) Benign essential hypertension (Chronic) 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) Diabetes (Chronic) Type 2 diabetes mellitus (Chronic) Obstructive sleep apnea (Chronic) Uncontrolled diabetes mellitus (Chronic) Diabetic infection of left foot (Chronic) Osteomyelitis of great toe of left foot (Chronic) Morbid obesity due to excess calories (Chronic) Tobacco dependence due to cigarettes (Chronic) Diabetic neuropathy (Chronic) Hypertension (Chronic) 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) Allergies/Adverse Reactions: Allergies Sulfa (Sulfonamide Antibiotics) Allergy (Verified 05/24/20 10:13) Rash Home Medications: Ambulatory Orders Medication Instructions Recorded Calcium Carbonate [Calcium] 500 mg PO DAILY 06/23/17 Multivitamin [Multiple Vitamins] 1 ea PO DAILY 06/23/17 aspirin 81 mg tablet,delayed 81 mg PO DAILY 08/12/19 release atorvastatin 40 mg tablet 40 mg PO DAILY 10/18/19 bupropion HCl 150 mg 24 hr tablet, 150 mg PO BID tab 10/18/19 extended release lisinopril 10 mg tablet 10 mg PO DAILY 10/18/19 tamsulosin 0.4 mg capsule 0.4 mg PO DAILY@1730 cap 10/18/19 blood sugar diagnostic See Rx Instructions .ROUTE 10/28/19 .MEDSUPPLY #100 ea lancets 33 gauge See Rx Instructions .ROUTE 10/28/19 .MEDSUPPLY #100 ea gabapentin 300 mg capsule 600 mg PO TIDCM cap 04/24/20 insulin regular hum U-500 conc 145 unit SC TID #27 ml 05/12/20 Linezolid 600 mg PO DAILY #7 tab 06/14/20 levoFLOXacin tablet [Levaquin 500 mg PO DAILY #7 tab 06/14/20 tablet] Maternal Family History: Family History (Last Reviewed 04/24/20 @ 15:[address] Juan Arteaga MD) Father Myocardial infarction Heart disease Mother Kidney disease Diabetes Sister Asthma Breast cancer Hypertension Brother Alcoholism Melanoma Family History: Diabetes, Renal Disease - on dialysis Paternal Family History: Family History (Last Reviewed 04/24/20 @ 15:[address] Juan Arteaga MD) Father Myocardial infarction Heart disease Mother Kidney disease Diabetes Sister Asthma Breast cancer Hypertension Brother Alcoholism Melanoma Family History: Heart Disease Sibling Family History: Family History (Last Reviewed 04/24/20 @ 15:[address] Juan Arteaga MD) Father Myocardial infarction Heart disease Mother Kidney disease Diabetes Sister Asthma Breast cancer Hypertension Brother Alcoholism Melanoma Family History: Cancer - breast cancer in his sister Smoking Status: Heavy Smoker (>10/day) Tobacco Use: Cigarettes Alcohol: None Drugs: None Physical Exam Vital Signs Temp Pulse Resp BP 97.8 F 87 18 159/70 H 07/13/20 11:11 07/13/20 11:11 07/13/20 11:11 10/22/20 11:11 General: Alert, Oriented x3, Cooperative, No apparent distress HEENT: Atraumatic, Normocephalic Lungs: Normal air movement Psych/Mental Status: Normal Affect Assessment/Plan Active Problems (Last Reviewed 04/24/20 @ 15:[address] Juan Arteaga MD) Ulcer of right lower extremity with fat layer exposed (Chronic) Ulcer of right foot with fat layer exposed (Chronic) Chronic ulcer of left foot with fat layer exposed (Chronic) Osteomyelitis of left foot (Chronic) Delayed wound healing (Chronic) Tobacco abuse counseling (Chronic) Type 2 diabetes mellitus with diabetic polyneuropathy (Chronic) The patient appears to be tolerating hyperbaric oxygen therapy well, which will be continued as per the patient's medical plan. Treatment Course Number Number of HBO Treatments 50 Ordered Treatment Course Number 1 Treatment # 45 Chamber # [id number] Chamber Type Monoplace HBO Diagnosis/Indication Diagnosis/Indication(s) for Right Diabetic Foot Ulcer Hyperbaric Therapy Classification - [place] Grade 2 Grading (Diabetic Ulcer) [] Classification - [place] Grade 2 Grading (Diabetic Ulcer) [] Classification - [place] Grade 3 Grading (Diabetic Ulcer) Diabetes - Detail Diabetes Diabetes Type II Diabetes Control Uncontrolled Left Extremity Ulcer, Other part of Foot Treatment Plan MARTITA (Atmospheric Absolute) 2.0 Number of Minutes 90 Number of Air Breaks 2 HBO supervision.
[2020-07-17 11:02] VITALS: BP 187/73; PULSE 100; RESP 18; TEMP 36.1
[2020-07-18 07:15] LABS: Bedside Glucose 269 mg/dL (70-110)
[2020-07-18 07:15] LABS: Bedside Glucose 289 mg/dL (70-110)
[2020-07-18 07:15] LABS: Bedside Glucose 292 mg/dL (70-110)
[2020-07-19 07:50] LABS: Bedside Glucose 212 mg/dL (70-110)
[2020-07-19 10:21] VITALS: BP 131/53; PULSE 79; RESP 20; TEMP 36.6; BMI 42.8
--- NOTE | 2020-07-19 10:26 | PCM.HBO.PN ---
History of Present Illness Date of Service: 07/19/20 Presenting Chief Complaint: Diabetic left foot ulceration, [place] Grade 3, with infection. Right foot ulcers with resolved infection and medial lower leg GEN SIM is a 65 year old currently undergoing hyperbaric oxygen therapy for diabetic left foot infection, [place] grade 3. Progress: Today's session represents the 46th session of hyperbaric oxygen therapy, of an expected 60 such treatments. Tolerance of hyperbaric oxygen therapy: Hyperbaric oxygen therapy was administered as per the facility's protocol. Hyperbaric oxygen therapy was administered for 80 minutes at 2 silas, with two 5-minute air breaks. Patient discontinued 10 minutes earlier due to being hot. Upon emergence from the hyperbaric oxygen chamber the patient had no complaints or complications. The patient's vital signs remained stable. The patient was discharged in good condition. His pre-and post- HBO blood sugars are recorded elsewhere and were appropriate for treatment. Past Medical History Chronic Problems (Last Reviewed 04/24/20 @ 15:[address] Juan Arteaga MD) Ulcer of right lower extremity with fat layer exposed (Chronic) MRSA (methicillin resistant staph aureus) culture positive (Chronic) Ulcer of left foot with necrosis of muscle (Chronic) History of transmetatarsal amputation of left foot (Chronic) Ulcer of right foot with fat layer exposed (Chronic) Obesity (Chronic) Tobacco abuse (Chronic) Osteomyelitis, unspecified (Chronic) Chronic ulcer of left foot with fat layer exposed (Chronic) Osteomyelitis of left foot (Chronic) Diabetic ulcer of left foot (Chronic) Other specified peripheral vascular diseases (Chronic) Delayed wound healing (Chronic) Difficulty in walking, not elsewhere classified (Chronic) 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) Tobacco abuse counseling (Chronic) Mixed hyperlipidemia (Chronic) Benign essential hypertension (Chronic) 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) Diabetes (Chronic) Type 2 diabetes mellitus (Chronic) Obstructive sleep apnea (Chronic) Uncontrolled diabetes mellitus (Chronic) Diabetic infection of left foot (Chronic) Osteomyelitis of great toe of left foot (Chronic) Morbid obesity due to excess calories (Chronic) Tobacco dependence due to cigarettes (Chronic) Diabetic neuropathy (Chronic) Hypertension (Chronic) 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) Allergies/Adverse Reactions: Allergies Sulfa (Sulfonamide Antibiotics) Allergy (Verified 05/24/20 10:13) Rash Home Medications: Ambulatory Orders Medication Instructions Recorded Calcium Carbonate [Calcium] 500 mg PO DAILY 06/23/17 Multivitamin [Multiple Vitamins] 1 ea PO DAILY 06/23/17 aspirin 81 mg tablet,delayed 81 mg PO DAILY 08/12/19 release atorvastatin 40 mg tablet 40 mg PO DAILY 10/18/19 bupropion HCl 150 mg 24 hr tablet, 150 mg PO BID tab 10/18/19 extended release lisinopril 10 mg tablet 10 mg PO DAILY 10/18/19 tamsulosin 0.4 mg capsule 0.4 mg PO DAILY@1730 cap 10/18/19 blood sugar diagnostic See Rx Instructions .ROUTE 10/28/19 .MEDSUPPLY #100 ea lancets 33 gauge See Rx Instructions .ROUTE 10/28/19 .MEDSUPPLY #100 ea gabapentin 300 mg capsule 600 mg PO TIDCM cap 04/24/20 insulin regular hum U-500 conc 145 unit SC TID #27 ml 05/12/20 Linezolid 600 mg PO DAILY #7 tab 06/14/20 levoFLOXacin tablet [Levaquin 500 mg PO DAILY #7 tab 06/14/20 tablet] Maternal Family History: Family History (Last Reviewed 04/24/20 @ 15:[address] Juan Arteaga MD) Father Myocardial infarction Heart disease Mother Kidney disease Diabetes Sister Asthma Breast cancer Hypertension Brother Alcoholism Melanoma Family History: Diabetes, Renal Disease - on dialysis Paternal Family History: Family History (Last Reviewed 04/24/20 @ 15:[address] Juan Atreaga MD) Father Myocardial infarction Heart disease Mother Kidney disease Diabetes Sister Asthma Breast cancer Hypertension Brother Alcoholism Melanoma Family History: Heart Disease Sibling Family History: Family History (Last Reviewed 04/24/20 @ 15:[address] Juan Arteaga MD) Father Myocardial infarction Heart disease Mother Kidney disease Diabetes Sister Asthma Breast cancer Hypertension Brother Alcoholism Melanoma Family History: Cancer - breast cancer in his sister Smoking Status: Heavy Smoker (>10/day) Tobacco Use: Cigarettes Alcohol: None Drugs: None Physical Exam Vital Signs Temp Pulse Resp BP 96.9 F L 100 18 187/73 H 07/17/20 11:02 07/17/20 11:02 07/17/20 11:02 07/17/20 11:02 Assessment/Plan Active Problems (Last Reviewed 04/24/20 @ 15:[address] Juan Arteaga MD) Ulcer of right lower extremity with fat layer exposed (Chronic) Ulcer of right foot with fat layer exposed (Chronic) Chronic ulcer of left foot with fat layer exposed (Chronic) Osteomyelitis of left foot (Chronic) Delayed wound healing (Chronic) Tobacco abuse counseling (Chronic) Type 2 diabetes mellitus with diabetic polyneuropathy (Chronic) The patient appears to be tolerating hyperbaric oxygen therapy well, which will be continued as per the patient's medical plan. Treatment Course Number Number of HBO Treatments 50 Ordered Treatment Course Number 1 Treatment # 45 Chamber # [id number] Chamber Type Monoplace HBO Diagnosis/Indication Diagnosis/Indication(s) for Right Diabetic Foot Ulcer Hyperbaric Therapy Classification - [place] Grade 2 Grading (Diabetic Ulcer) [#2 right 5th metatarsal] Classification - [place] Grade 2 Grading (Diabetic Ulcer) [#1 Left Plantar medial] Classification - [place] Grade 3 Grading (Diabetic Ulcer) Diabetes - Detail Diabetes Diabetes Type II Diabetes Control Uncontrolled Left Extremity Ulcer, Other part of Foot Treatment Plan MARTITA (Atmospheric Absolute) 2.0 Number of Minutes 90 Number of Air Breaks 2
[2020-07-19 10:31] LABS: Bedside Glucose 147 mg/dL (70-110)
--- NOTE | 2020-07-19 11:11 | PN.PCM_ITS ---
(1) Ulcer of right foot with fat layer exposed Status: Chronic Code(s): L97.512 - Non-pressure chronic ulcer of other part of right foot with fat layer exposed (2) Chronic ulcer of left foot with fat layer exposed Status: Chronic Code(s): L97.522 - Non-pressure chronic ulcer of other part of left foot with fat layer exposed (3) Osteomyelitis of left foot Status: Chronic Qualifiers: Code(s): M86.9 - Osteomyelitis, unspecified (4) Delayed wound healing Status: Chronic Code(s): T14.8XXD - Other injury of unspecified body region, subsequent encounter (5) Tobacco abuse counseling Status: Chronic Code(s): Z71.6 - Tobacco abuse counseling (6) Type 2 diabetes mellitus with diabetic polyneuropathy Status: Chronic Qualifiers: Code(s): E11.42 - Type 2 diabetes mellitus with diabetic polyneuropathy (7) Ulcer of right lower extremity with fat layer exposed Status: Chronic Code(s): L97.912 - Non-pressure chronic ulcer of unspecified part of right lower leg with fat layer exposed Type of Wound Date of Service: 07/19/20 Chief Complaint: Diabetic left foot ulceration, [place] Grade 3, with infection. Right foot ulcers with resolved infection and medial lower leg History of Wound: This 65-year-old male with multiple comorbidities was seen today for left foot ulcer. His left foot ulcer onset was 12-07-2019. He is previously known to me and had a left transmetatarsal amputation performed previously. He denies diarrhea, rash, fever, chill, nausea, vomiting. He also continues hyperbaric oxygen therapy. He denies redness or odor. He kept his total contact cast on the right lower extremity clean and intact this past week. He expresses extreme difficulty with the cast in regards to walking and being able to travel. He requested a break from the cast for a week. He was not able to obtain the recommended Dakin solution either and is still working on this. Progress of Wound: Improving right. Stable left with recent maceration return - Physical Exam Vital Signs Temp Pulse Resp BP 97.9 F 79 20 H 131/53 H 07/19/20 10:21 07/19/20 10:21 07/19/20 10:21 07/19/20 10:21 General: Alert, Oriented x3, Cooperative, No apparent distress HEENT: Atraumatic Extremities: No cyanosis, Capillary Refill Less than 3 Seconds, No Calf Tenderness, Diminished Peripheral Pulses, Edema Skin: Ulcer/ Wound - No purulence, erythema, streaking, odor, infection. The skin is hairless and atrophic. There is no exposed tendon or bone in the left foot however there is continued significant callus noted. The adjacent skin is hairless and atrophic Wound Measurements and Assessment WC - Nurse 1 - General Ulcer Measurement Start: 06/22/20 11:33 Freq: Status: Active Protocol: Activity Type Activity Date Activity User E-Sign Co-Sign Detail Recorded Client Recorded Date Recorded By Document 07/19/20 10:21 DL [id number] 07/19/20 10:38 DL 07/19/20 10:21 Wound Center Nurse 1 [Ulcer Assessment] #9 right lateral plantar -Current Size (cm) - Length 2.5 -Current Size (cm) - Width 2 -Current Size (cm) - Depth 0.3 -Total Square Cm 5.0 -Photo Taken No -Exudate Amt Small -Exudate Type Serosanguineous -Wound Margin Thickened -Granulation Amt Large (67-100%) -Granulation Quality [place] -Necrosis Amt Small (1-33%) -Necrotic Tissue Type Adherent Slough -Structure Exposed N/A -Texture (Maria M-wound Skin Appearance) Scarring -Moisture (Maria M-wound Skin Appearance Maceration ) -Color (Maria M-wound Skin Appearance) Hemosiderin Staining -Temperature (Maria M-wound Skin No Abnormality Appearance) (Pt Warm) -Tenderness on Palpation (Maria M-wound No Skin Appearance) -Ulcer Cleansing Wound Cleanser -Foul Odor after Cleansing No -Anesthetic Used 4% Lidocaine Solution #3 right medial ankle -Current Size (cm) - Length 0.8 -Current Size (cm) - Width 0.7 -Current Size (cm) - Depth 0.1 -Total Square Cm 0.56 -Photo Taken No -Exudate Amt Small -Exudate Type Serosanguineous -Wound Margin Distinct, Outline Attached -Granulation Amt Large (67-100%) -Granulation Quality Red -Necrosis Amt Small (1-33%) -Necrotic Tissue Type Adherent Slough -Structure Exposed N/A -Texture (Maria M-wound Skin Appearance) Scarring -Moisture (Maria M-wound Skin Appearance No Abnormality ) -Color (Maria M-wound Skin Appearance) No Abnormality -Temperature (Maria M-wound Skin No Abnormality Appearance) (Pt Warm) -Tenderness on Palpation (Maria M-wound No Skin Appearance) -Ulcer Cleansing Wound Cleanser -Foul Odor after Cleansing No -Anesthetic Used 4% Lidocaine Solution #1 Left Plantar medial -Current Size (cm) - Length 3.5 -Current Size (cm) - Width 3.8 -Current Size (cm) - Depth 0.7 -Total Square Cm 13.30 -Photo Taken No -Exudate Amt Medium -Exudate Type Serosanguineous -Wound Margin Thickened -Granulation Amt Medium (34-66%) -Granulation Quality Red -Necrosis Amt Medium (34-66%) -Necrotic Tissue Type Adherent Slough -Structure Exposed N/A -Texture (Maria M-wound Skin Appearance) Scarring -Moisture (Maria M-wound Skin Appearance Dry/Scaly ) -Color (Maria M-wound Skin Appearance) Rubor -Temperature (Maria M-wound Skin No Abnormality Appearance) (Pt Warm) -Tenderness on Palpation (Maria M-wound No Skin Appearance) -Ulcer Cleansing Wound Cleanser -Foul Odor after Cleansing No -Anesthetic Used 4% Lidocaine Solution WC - Nurse 2 - General Ulcer CM Notes Start: 06/22/20 11:33 Freq: Status: Active Protocol: Activity Type Activity Date Activity User E-Sign Co-Sign Detail Recorded Client Recorded Date Recorded By Document 07/19/20 10:49 CASSY [id number] 07/19/20 11:01 CASSY 07/19/20 10:49 Wound Center Nurse 2 [Procedure/Treatment] #9 right lateral plantar -Time 10:49 -Correct Patient Yes -Correct Side, Site, Position Yes -Correct Procedure Yes -Procedure Performed Yes -Type of Procedure Debridement -Clinical Debridement Subcutaneous -Tissue Removed Subcutaneous -Post Debridement (cm) - Length 1.8 -Post Debridement (cm) - Width 2.8 -Post Debridement (cm) - Depth 0.2 -Total Square (Post) (cm) 5.04 -Area of Debridement (cm) - Length 1.8 -Area of Debridement (cm) - Width 2.8 -Total Square (Area) (cm) 5.04 -Tunneling No -Undermining/Tunneling No -Circular Undermining No -Wound/Ulcer Outcome Not Healed -Ulcer Cleansing Rinsed/ Irrigated with Saline -Foul Odor after Cleansing No -Bioengineered Tissue No -Bleeding Controlled with Pressure -Offloading Yes -Type of Offloading Surgical Shoe -Treatment Response Procedure Tolerated Well -Debridement - Subq, 1st 20sq cm Yes #3 right medial ankle -Time 10:50 -Correct Patient Yes -Correct Side, Site, Position Yes -Correct Procedure Yes -Procedure Performed Yes -Type of Procedure Debridement -Clinical Debridement Subcutaneous -Tissue Removed Subcutaneous -Post Debridement (cm) - Length 1.0 -Post Debridement (cm) - Width 0.7 -Post Debridement (cm) - Depth 0.1 -Total Square (Post) (cm) 0.70 -Area of Debridement (cm) - Length 1.0 -Area of Debridement (cm) - Width 0.7 -Total Square (Area) (cm) 0.70 -Tunneling No -Undermining/Tunneling No -Circular Undermining No -Wound/Ulcer Outcome Not Healed -Ulcer Cleansing Rinsed/ Irrigated with Saline -Foul Odor after Cleansing No -Bioengineered Tissue No -Bleeding Controlled with Pressure -Offloading Yes -Type of Offloading Surgical Shoe -Treatment Response Procedure Tolerated Well -Debridement - Subq, 20sq cm No #1 Left Plantar medial -Time 10:50 -Correct Patient Yes -Correct Side, Site, Position Yes -Correct Procedure Yes -Procedure Performed Yes -Type of Procedure Debridement -Clinical Debridement Subcutaneous -Tissue Removed Subcutaneous -Post Debridement (cm) - Length 2.2 -Post Debridement (cm) - Width 1.8 -Post Debridement (cm) - Depth 0.3 -Total Square (Post) (cm) 3.96 -Area of Debridement (cm) - Length 2.2 -Area of Debridement (cm) - Width 1.8 -Total Square (Area) (cm) 3.96 -Tunneling No -Undermining/Tunneling No -Circular Undermining No -Wound/Ulcer Outcome Not Healed -Ulcer Cleansing Rinsed/ Irrigated with Saline -Foul Odor after Cleansing No -Bioengineered Tissue No -Bleeding Controlled with Pressure -Offloading Yes -Type of Offloading Surgical Shoe -Treatment Response Procedure Tolerated Well -Debridement - Subq, 1st 20sq cm No [See Physician Procedure note for Specifics] Pain Scale: 0-10 Numeric [Pain] -Is Patient Pain Free? Yes Musculoskeletal: No Tenderness to Palpation of Joints or Extremities, Muscle Wasting, - - Transmetatarsal amputation left. Prominent metatarsal heads right Neurological: - - Lack of normal epicritic sensation light touch is consistent with neuropathy status Psych/Mental Status: Normal Affect, Appropriate Debridement Note Post-Debridement Measurements/Treatment WC - Nurse 2 - General Ulcer CM Notes Start: 06/22/20 11:33 Freq: Status: Active Protocol: Activity Type Activity Date Activity User E-Sign Co-Sign Detail Recorded Client Recorded Date Recorded By Document 06/28/20 11:00 MW [id number] 06/28/20 11:16 MW Document 07/05/20 10:53 JF [id number] 07/05/20 11:02 JF Document 07/12/20 11:01 JF [id number] 07/12/20 11:10 JF Document 07/19/20 10:49 JF [id number] 07/19/20 11:01 JF 06/28/20 07/05/20 07/12/20 11:00 10:53 11:01 Wound Center Nurse 2 #9 right lateral plantar -Time 11:01 10:57 11:05 -Correct Patient Yes Yes Yes -Correct Side, Site, Position Yes Yes Yes -Correct Procedure Yes Yes Yes -Procedure Performed Yes Yes Yes -Type of Procedure Debridement Debridement Debridement -Clinical Debridement Subcutaneous Subcutaneous Subcutaneous -Tissue Removed Subcutaneous Subcutaneous Subcutaneous -Post Debridement (cm) - Length 2.0 1.8 1.8 -Post Debridement (cm) - Width 2.0 2.3 2.1 -Post Debridement (cm) - Depth 0.3 0.7 0.1 -Total Square (Post) (cm) 4.00 4.14 3.78 -Area of Debridement (cm) - Length 2.0 1.8 1.8 -Area of Debridement (cm) - Width 2.0 2.3 2.1 -Total Square (Area) (cm) 4.00 4.14 3.78 -Tunneling No No No -Undermining/Tunneling No No No -Circular Undermining No No No -Wound/Ulcer Outcome Not Healed Not Healed Not Healed -Ulcer Cleansing Rinsed/ Rinsed/ Rinsed/ Irrigated with Irrigated with Irrigated with Saline Saline Saline -Foul Odor after Cleansing No No No -Bioengineered Tissue No No No -Bleeding Controlled with Pressure Pressure Pressure -Offloading No Yes No -Type of Offloading Total Contact Surgical Shoe Total Contact Cast (TCC) - Cast (TCC) - Left ($) Right ($) -Treatment Response Procedure Procedure Tolerated Well Tolerated Well -Debridement - Subq, 1st 20sq cm Yes Yes Yes #7 right 2nd toe -Time 11:06 -Correct Patient Yes -Correct Side, Site, Position Yes -Correct Procedure Yes -Procedure Performed No -Post Debridement (cm) - Length 0 -Post Debridement (cm) - Width 0 -Post Debridement (cm) - Depth 0 -Total Square (Post) (cm) 0 -Tunneling No -Undermining/Tunneling No -Circular Undermining No -Wound/Ulcer Outcome Healed- Epithelialized -Bleeding Controlled with NA #6 right lateral base great toe -Time 11:07 -Correct Patient Yes -Correct Side, Site, Position Yes -Correct Procedure Yes -Procedure Performed No -Post Debridement (cm) - Length 0 -Post Debridement (cm) - Width 0 -Post Debridement (cm) - Depth 0 -Total Square (Post) (cm) 0 -Wound/Ulcer Outcome Healed- Epithelialized #5 right great toe cluster -Time 11:08 -Correct Patient Yes -Correct Side, Site, Position Yes -Correct Procedure Yes -Procedure Performed No -Post Debridement (cm) - Length 0 -Post Debridement (cm) - Width 0 -Post Debridement (cm) - Depth 0 -Total Square (Post) (cm) 0 -Wound/Ulcer Outcome Healed- Epithelialized #4 right medial dorsal cluster -Time 11:08 -Correct Patient Yes -Correct Side, Site, Position Yes -Correct Procedure Yes -Procedure Performed No -Post Debridement (cm) - Length 0 -Post Debridement (cm) - Width 0 -Post Debridement (cm) - Depth 0 -Total Square (Post) (cm) 0 -Wound/Ulcer Outcome Healed- Epithelialized #3 right medial ankle -Time 11:08 10:53 11:06 -Correct Patient Yes Yes Yes -Correct Side, Site, Position Yes Yes Yes -Correct Procedure Yes Yes Yes -Procedure Performed Yes Yes Yes -Type of Procedure Debridement Debridement Debridement -Clinical Debridement Subcutaneous Subcutaneous Subcutaneous -Tissue Removed Subcutaneous Subcutaneous Subcutaneous -Post Debridement (cm) - Length 2.8 1.3 2.6 -Post Debridement (cm) - Width 1.6 1.1 1.3 -Post Debridement (cm) - Depth 0.2 0.2 0.1 -Total Square (Post) (cm) 4.48 1.43 3.38 -Area of Debridement (cm) - Length 2.8 1.3 2.6 -Area of Debridement (cm) - Width 1.6 1.1 1.3 -Total Square (Area) (cm) 4.48 1.43 3.38 -Tunneling No No No -Undermining/Tunneling No No No -Circular Undermining No No No -Wound/Ulcer Outcome Not Healed Not Healed Not Healed -Ulcer Cleansing Rinsed/ Rinsed/ Rinsed/ Irrigated with Irrigated with Irrigated with Saline Saline Saline -Foul Odor after Cleansing No No No -Bioengineered Tissue No No No -Bleeding Controlled with Pressure Pressure Pressure -Offloading No Yes No -Type of Offloading Surgical Shoe -Treatment Response Procedure Procedure Tolerated Well Tolerated Well -Debridement - Subq, 1st 20sq cm No No No #1 Left Plantar medial -Time 11:05 10:53 11:10 -Correct Patient Yes Yes Yes -Correct Side, Site, Position Yes Yes Yes -Correct Procedure Yes Yes Yes -Procedure Performed Yes Yes Yes -Type of Procedure Debridement Debridement Debridement -Clinical Debridement Subcutaneous Subcutaneous Subcutaneous -Tissue Removed Subcutaneous Subcutaneous Subcutaneous -Post Debridement (cm) - Length 2.2 1.5 2.5 -Post Debridement (cm) - Width 2.2 1.1 1.5 -Post Debridement (cm) - Depth 4 0.7 0.7 -Total Square (Post) (cm) 4.84 1.65 3.75 -Area of Debridement (cm) - Length 2.2 1.4 2.5 -Area of Debridement (cm) - Width 2.2 1.1 1.5 -Total Square (Area) (cm) 4.84 1.54 3.75 -Tunneling No No No -Undermining/Tunneling No No No -Circular Undermining No No No -Wound/Ulcer Outcome Not Healed Not Healed Not Healed -Ulcer Cleansing Rinsed/ Rinsed/ Rinsed/ Irrigated with Irrigated with Irrigated with Saline Saline Saline -Foul Odor after Cleansing No No No -Bioengineered Tissue Yes Yes No -Type of Bioengineered Tissue Epifix Epifix -Expiration Date 02/20/25 02/20/25 -Product Lot Number [id number] -Percent Used 100 100 -Saline Lot Number [id number] -Bleeding Controlled with Pressure Pressure Pressure -Offloading No Yes Yes -Type of Offloading Total Contact Surgical Shoe Cast (TCC) - Left ($) -Treatment Response Procedure Procedure Tolerated Well Tolerated Well -Debridement - Subq, 1st 20sq cm No No No -Apply Skin Sub - 1st 25 sq cm - Feet 1 1 -Epifix (per sq cm) 4 4 Pain Scale: 0-10 Numeric Is Patient Pain Free? Yes Yes Yes 07/19/20 10:49 Wound Center Nurse 2 #9 right lateral plantar -Time 10:49 -Correct Patient Yes -Correct Side, Site, Position Yes -Correct Procedure Yes -Procedure Performed Yes -Type of Procedure Debridement -Clinical Debridement Subcutaneous -Tissue Removed Subcutaneous -Post Debridement (cm) - Length 1.8 -Post Debridement (cm) - Width 2.8 -Post Debridement (cm) - Depth 0.2 -Total Square (Post) (cm) 5.04 -Area of Debridement (cm) - Length 1.8 -Area of Debridement (cm) - Width 2.8 -Total Square (Area) (cm) 5.04 -Tunneling No -Undermining/Tunneling No -Circular Undermining No -Wound/Ulcer Outcome Not Healed -Ulcer Cleansing Rinsed/ Irrigated with Saline -Foul Odor after Cleansing No -Bioengineered Tissue No -Bleeding Controlled with Pressure -Offloading Yes -Type of Offloading Surgical Shoe -Treatment Response Procedure Tolerated Well -Debridement - Subq, 1st 20sq cm Yes #7 right 2nd toe -Time -Correct Patient -Correct Side, Site, Position -Correct Procedure -Procedure Performed -Post Debridement (cm) - Length -Post Debridement (cm) - Width -Post Debridement (cm) - Depth -Total Square (Post) (cm) -Tunneling -Undermining/Tunneling -Circular Undermining -Wound/Ulcer Outcome -Bleeding Controlled with #6 right lateral base great toe -Time -Correct Patient -Correct Side, Site, Position -Correct Procedure -Procedure Performed -Post Debridement (cm) - Length -Post Debridement (cm) - Width -Post Debridement (cm) - Depth -Total Square (Post) (cm) -Wound/Ulcer Outcome #5 right great toe cluster -Time -Correct Patient -Correct Side, Site, Position -Correct Procedure -Procedure Performed -Post Debridement (cm) - Length -Post Debridement (cm) - Width -Post Debridement (cm) - Depth -Total Square (Post) (cm) -Wound/Ulcer Outcome #4 right medial dorsal cluster -Time -Correct Patient -Correct Side, Site, Position -Correct Procedure -Procedure Performed -Post Debridement (cm) - Length -Post Debridement (cm) - Width -Post Debridement (cm) - Depth -Total Square (Post) (cm) -Wound/Ulcer Outcome #3 right medial ankle -Time 10:50 -Correct Patient Yes -Correct Side, Site, Position Yes -Correct Procedure Yes -Procedure Performed Yes -Type of Procedure Debridement -Clinical Debridement Subcutaneous -Tissue Removed Subcutaneous -Post Debridement (cm) - Length 1.0 -Post Debridement (cm) - Width 0.7 -Post Debridement (cm) - Depth 0.1 -Total Square (Post) (cm) 0.70 -Area of Debridement (cm) - Length 1.0 -Area of Debridement (cm) - Width 0.7 -Total Square (Area) (cm) 0.70 -Tunneling No -Undermining/Tunneling No -Circular Undermining No -Wound/Ulcer Outcome Not Healed -Ulcer Cleansing Rinsed/ Irrigated with Saline -Foul Odor after Cleansing No -Bioengineered Tissue No -Bleeding Controlled with Pressure -Offloading Yes -Type of Offloading Surgical Shoe -Treatment Response Procedure Tolerated Well -Debridement - Subq, 1st 20sq cm No #1 Left Plantar medial -Time 10:50 -Correct Patient Yes -Correct Side, Site, Position Yes -Correct Procedure Yes -Procedure Performed Yes -Type of Procedure Debridement -Clinical Debridement Subcutaneous -Tissue Removed Subcutaneous -Post Debridement (cm) - Length 2.2 -Post Debridement (cm) - Width 1.8 -Post Debridement (cm) - Depth 0.3 -Total Square (Post) (cm) 3.96 -Area of Debridement (cm) - Length 2.2 -Area of Debridement (cm) - Width 1.8 -Total Square (Area) (cm) 3.96 -Tunneling No -Undermining/Tunneling No -Circular Undermining No -Wound/Ulcer Outcome Not Healed -Ulcer Cleansing Rinsed/ Irrigated with Saline -Foul Odor after Cleansing No -Bioengineered Tissue No -Type of Bioengineered Tissue -Expiration Date -Product Lot Number -Percent Used -Saline Lot Number -Bleeding Controlled with Pressure -Offloading Yes -Type of Offloading Surgical Shoe -Treatment Response Procedure Tolerated Well -Debridement - Subq, 1st 20sq cm No -Apply Skin Sub - 1st 25 sq cm - Feet -Epifix (per sq cm) Pain Scale: 0-10 Numeric Is Patient Pain Free? Yes WC - Nurse 3 - General Ulcer D/C NN Start: 06/22/20 11:33 Freq: Status: Active Protocol: Activity Type Activity Date Activity User E-Sign Co-Sign Detail Recorded Client Recorded Date Recorded By Document 06/23/20 11:19 [id number] 06/23/20 11:25 JF Document 06/27/20 10:20 JF [id number] 06/27/20 10:25 JF Document 06/28/20 11:26 DL [id number] 06/28/20 11:31 DL Document 07/04/20 10:49 [id number] 07/04/20 10:59 Document 07/05/20 13:02 [facility] [id number] 07/05/20 13:04 [facility] Document 07/07/20 13:22 [id number] 07/07/20 13:25 Document 07/11/20 10:40 [id number] 07/11/20 10:59 Document 07/12/20 11:38 [facility] [id number] 07/12/20 11:40 [facility] 06/23/20 06/27/20 06/28/20 11:19 10:20 11:26 Wound Care Nurse 3 #9 right lateral plantar -Ulcer Cleansing Wound Cleanser -Foul Odor after Cleansing No -Primary Dressing Applied Aquacel AG 4x4 -Primary Dressing Covered/Secured with Dry Gauze & Roll Gauze, Secured with Tape -Other Covering -Aquacel AG 4x4 1 #3 right medial ankle -Ulcer Cleansing Wound Cleanser -Foul Odor after Cleansing No -Primary Dressing Applied -Other Dressing Aguacel AG -Primary Dressing Covered/Secured with Dry Gauze & Roll Gauze, Secured with Tape -Other Covering -Aquacel AG 4x4 #1 Left Plantar medial -Ulcer Cleansing Wound Cleanser -Foul Odor after Cleansing No -Primary Dressing Applied -Other Dressing Epifix -Primary Dressing Covered/Secured with Dry Gauze & Roll Gauze, Secured with Tape -Other Covering TCC Undercasting Size 3 -Aquacel AG 4x4 Right -Other Left -Lotion applied to leg before compression wrap -Other Treatment Response Procedure Tolerated Well Vital Signs Pulse Rate (60-100) 77 Pulse Location Monitor Blood Pressure (90/60-120/80) 153/69 H Blood Pressure Mean (mm Hg) 97 Source Monitor Pain Scale: 0-10 Numeric Is Patient Pain Free? Yes Yes Yes WC - Visit Discharge Discharge Condition Stable Stable Stable Ambulatory Status Ambulatory Ambulatory Ambulatory Transportation private Private Auto transportation Accompanied by Medication Reconcilliation completed & Yes Yes provided to patient/care provider Clinical Summary of Care Provided Yes Yes Notes: Personal transport thru his insurance. Facility Type Home Health Orders Sent Yes 07/04/20 07/05/20 07/07/20 10:49 13:02 13:22 Wound Care Nurse 3 #9 right lateral plantar -Ulcer Cleansing Rinsed/ Irrigated with Saline -Foul Odor after Cleansing No -Primary Dressing Applied Aquacel AG 4x4 -Primary Dressing Covered/Secured with Dry Gauze & Roll Gauze, Secured with Tape -Other Covering -Aquacel AG 4x4 1 #3 right medial ankle -Ulcer Cleansing Rinsed/ Irrigated with Saline -Foul Odor after Cleansing No -Primary Dressing Applied Aquacel AG 4x4 -Other Dressing -Primary Dressing Covered/Secured with Dry Gauze & Roll Gauze, Secured with Tape -Other Covering -Aquacel AG 4x4 1 #1 Left Plantar medial -Ulcer Cleansing -Foul Odor after Cleansing -Primary Dressing Applied Other -Other Dressing epifix per md -Primary Dressing Covered/Secured with Dry Gauze, Secured with Tape,Other -Other Covering tcc undercast -Aquacel AG 4x4 Right -Other Left -Lotion applied to leg before No compression wrap -Other tcc undercast Treatment Response Procedure Tolerated Well Vital Signs Pulse Rate (60-100) Pulse Location Blood Pressure (90/60-120/80) Blood Pressure Mean (mm Hg) Source Pain Scale: 0-10 Numeric Is Patient Pain Free? Yes WC - Visit Discharge Discharge Condition Stable Stable Stable Ambulatory Status Ambulatory Ambulatory Ambulatory Transportation Private Auto Private Auto Private Auto Accompanied by Medication Reconcilliation completed & Yes Yes provided to patient/care provider Clinical Summary of Care Provided Yes Yes Notes: Facility Type Orders Sent 07/11/20 07/12/20 10:40 11:38 Wound Care Nurse 3 #9 right lateral plantar -Ulcer Cleansing -Foul Odor after Cleansing -Primary Dressing Applied Aquacel AG 4x4 -Primary Dressing Covered/Secured with Dry Gauze & Roll Gauze, Secured with Tape,Other -Other Covering tcc undercast per luis lock rn -Aquacel AG 4x4 1 #3 right medial ankle -Ulcer Cleansing Rinsed/ Irrigated with Saline -Foul Odor after Cleansing No -Primary Dressing Applied Aquacel AG 4x4 -Other Dressing -Primary Dressing Covered/Secured with Dry Gauze & Roll Gauze, Secured with Tape,Other -Other Covering tcc undercast per luis lock rn -Aquacel AG 4x4 0 #1 Left Plantar medial -Ulcer Cleansing Rinsed/ Irrigated with Saline -Foul Odor after Cleansing No -Primary Dressing Applied Aquacel AG 4x4 -Other Dressing -Primary Dressing Covered/Secured with Dry Gauze & Roll Gauze, Secured with Tape -Other Covering -Aquacel AG 4x4 0 Right -Other tcc undercast Left -Lotion applied to leg before compression wrap -Other Treatment Response Vital Signs Pulse Rate (60-100) Pulse Location Blood Pressure (90/60-120/80) Blood Pressure Mean (mm Hg) Source Pain Scale: 0-10 Numeric Is Patient Pain Free? Yes Yes WC - Visit Discharge Discharge Condition Stable Stable Ambulatory Status Ambulatory Ambulatory Transportation Private Auto Private Auto Accompanied by private transport Medication Reconcilliation completed & Yes provided to patient/care provider Clinical Summary of Care Provided Yes Notes: Facility Type Home Health Orders Sent Wound debrided: Subfifth metatarsal head, medial ankle/lower leg Laterality: Right Wound Grade/Stage: grade 1 Type of Debridement: Excisional debridement Anesthesia Used: 5% Lidocaine Gel Depth: in the subcutaneous layer Percentage of wound debrided: 100 Instrument Used: #15 blade Tissue Removed: fibrous, devitalized subcutaneous, biofilm, slough Severity: Fat Layer Exposed Amount of bleeding with debridement: Mild Bleeding Controlled with: Pressure Patient tolerated procedure well - Additional Wound Wound debrided: plantar medial foot Laterality: Left Wound Grade/Stage: grade 3 Type of Debridement: Excisional debridement Anesthesia Used: 5% Lidocaine Gel Depth: in the subcutaneous layer Percentage of wound debrided: 100 Instrument Used: #15 blade Tissue Removed: fibrous, devitalized subcutaneous, biofilm, slough Severity: Fat Layer Exposed Amount of bleeding with debridement: Mild Bleeding Controlled with: Pressure Patient tolerated procedure: Patient tolerated procedure well Assessment/Plan Active Problems (Last Reviewed 04/24/20 @ 15:[address] Juan Arteaga MD) Ulcer of right lower extremity with fat layer exposed (Chronic) Ulcer of right foot with fat layer exposed (Chronic) Chronic ulcer of left foot with fat layer exposed (Chronic) Osteomyelitis of left foot (Chronic) Delayed wound healing (Chronic) Tobacco abuse counseling (Chronic) Type 2 diabetes mellitus with diabetic polyneuropathy (Chronic) Assessment: Left plantar medial foot ulcer, Mancilla Grade 3 -stable. right foot ulcers include plantar lateral, medial ankle - mancilla grade 1. Cellulitis right foot resolved. maceration left foot. Morbid obesity. 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 Subcutaneous excisional debridement was performed as noted in the clinical panel to the left foot and right foot and lower leg. His ulcer status has improved bilateral. There is no longer any tendon exposed today on the left foot. He did well with a total contact cast last week and there is been significant reduction in inflammation and callus formation to the right foot and lower leg. He relates he not tolerate this week and will going a wound VAC vacation. Will consider reapplication next week. I recommend he continues to work on obtaining the Dakin's solution and to perform Dakin wet-to-dry dressing applications on a daily basis. Aquacel Ag was applied today because that was the dressing that was appropriate and available in clinic. . I discussed other offloading techniques such as using a walker or a knee roller for the left limb. His noninvasive vascular studies were reviewed from which were normal and intervention was previously not recommended. I advised him to follow-up with all of Dr. Bonilla's recommendations to optimize his healing process. He has for help scheduling this because he has not been able to do this. He has recently been seen and intervention is planned for arterial optimization. An updated bilateral duplex was also recommended to help with planning. He had an updated left foot x-ray which did not demonstrate any new progressive osseous destruction, soft tissue emphysema, fracture, dislocation, or foreign body. I previously recommend that he sees infectious disease because he is very high risk and input is greatly appreciated. He had recent multi-organism culture (MRSA, E facealis, klebs, strep, corynebacterium) results and cellulitis clinical signs to the right foot. This has resolved and there are no clinical or systemic signs of infection noted today. 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 To continue with hyperbaric oxygen therapy which appears to be helping. I recommend continued course due to his positive response. This is medically necessary and he is responding well and making appropriate progress. It is noted his nutrition, vascular, and medical status is optimized. He understands insurance authorization is required to continue and he may not meet continued criteria. This is in process. To continue to work on decreasing glucose levels. He has a history of hyperglycemia. To continue to follow-up with nutritional services. To continue to follow-up as advised. He is currently making adjustments with his eating habits. He also follows up with molder offbearer, Dr. Arteaga who is working with him to reduce his hemoglobin A1c with medication and behavioral changes. Smoking cessation was discussed in detail and he was advised on the healing impairment associated with this. To continue with his smoking cessation program. I also recommend discontinuation of nicotine products for this also contributes to small vessel contraction. I answered all of his questions today. To return to clinic in 1 week or call sooner if questions, concerns, or progressive worsening.
[2020-07-19 11:24] VITALS: BP 130/60; PULSE 78
[2020-07-19 11:26] VITALS: BP 131/53; BP 157/58; PULSE 105; PULSE 79; RESP 18; TEMP 36.4; TEMP 36.6
== END 2020-07-22 23:59 ==
LOC: WC 08:00
PROVIDERS: PCP Family Medicine Geriatric Medicine; Referring Provider Family Medicine; Visit Provider Family Medicine
DX: E11.621 Type 2 diabetes mellitus with foot ulcer (principal); L97.522 Non-pressure chronic ulcer of other part of left foot with fat layer exposed; E11.51 Type 2 diabetes mellitus with diabetic peripheral angiopathy without gangrene; E11.42 Type 2 diabetes mellitus with diabetic polyneuropathy; L97.512 Non-pressure chronic ulcer of other part of right foot with fat layer exposed; L97.511 Non-pressure chronic ulcer of other part of right foot limited to breakdown of skin; L97.521 Non-pressure chronic ulcer of other part of left foot limited to breakdown of skin; L03.115 Cellulitis of right lower limb; E66.01 Morbid (severe) obesity due to excess calories; Z86.14 Personal history of Methicillin resistant Staphylococcus aureus infection; E11.69 Type 2 diabetes mellitus with other specified complication; M86.672 Other chronic osteomyelitis, left ankle and foot; E78.2 Mixed hyperlipidemia; I12.9 Hypertensive chronic kidney disease with stage 1 through stage 4 chronic kidney disease, or unspecified chronic kidney disease; E11.22 Type 2 diabetes mellitus with diabetic chronic kidney disease; N18.2 Chronic kidney disease, stage 2 (mild); F17.210 Nicotine dependence, cigarettes, uncomplicated; G47.33 Obstructive sleep apnea (adult) (pediatric)
CPT/HCPCS: 11042; 15275; 29445; 82962; 99183; Q4186; G0277

== ENCOUNTER → 2020-07-26 13:21 | Outpatient (CLI) | payer MEDICARE, MEDICAID, SELFPAY ==
[2020-07-26 11:27] VITALS: BMI 42.8
[2020-07-26 16:00] LABS: Absolute Lymphocyte Count 2.01 X10^3/uL (0.83-4.51); Absolute Neutrophil Count 8.2 X10^3/uL (2.0-7.7); Basophil# 0.14 X10^3/uL; Basophil% 1.2 % (0-1); Eosinophil# 0.29 X10^3/uL; Eosinophils% 2.5 % (0-5); Hematocrit 45.4 % (40-54); Lymphocyte # 2.01 X10^3/ul (4.0); Lymphocyte % 17.5 % (19-41); Mean Corp Hgb Conc 30.8 g/dL (32-36); Mean Corpuscular Hgb 28.6 pg (27.0-32.0); Mean Corpuscular Volume 92.7 fL (80-94); Mean Platelet Vol. 10.1 fl (6.2-12.0); Monocyte# 0.72 X10^3/uL; Monocyte% 6.3 % (0-10); NRBC Flagged by Analyzer 0 % (0-5); Neutrophil # 8.18 X10^3/uL (2.7-7.7); Neutrophil % 71.4 % (47-70); Platelet Count 279 K/mm3 (150-450); RBC Distribution Width CV 14.5 % (11.6-14.6); RBC Distribution Width SD 49.1 fl (35.1-43.9); White Blood Count 11.5 K/mm3 (4.4-11.0)
[2020-07-26 16:21] LABS: ALB/GLOB Ratio 0.6 RATIO (0.9-2.4); AST(SGOT) 14 U/L (15-37); Alanine Aminotransfer ALT/SGPT 34 U/L (16-61); Albumin, Serum 2.9 g/dL (3.2-5.0); Alkaline Phosphatase 101 U/L (45-117); Anion Gap 2 (5-15); BUN 11 mg/dL (7-18); BUN/Creat Ratio 12.9 RATIO (10-20); Calcium,Total 8.8 mg/dL (8.5-10.1); Chloride 104 mmol/L (98-107); Creatinine, Serum 0.85 mg/dL (0.70-1.30); EST Glomerular Filtration Rate 96 mL/min (>60); Est Glom Filt Rate - Afr Amer 116 mL/min (>60); Globulin 5.1 g/dL (2.2-4.2); Glucose 239 mg/dL (74-106); PSA,Total - Annual Screen 1.51 ng/mL (0.00-4.00); Potassium 4.7 mmol/L (3.5-5.1); Sodium Level 134 mmol/L (136-145); Thyroid Stim Hormone (TSH) 2.54 uIU/mL (0.358-3.74)
[2020-07-27 14:02] LABS: Vitamin D,25 Hydroxy 38.3 ng/mL
== END ==
PROVIDERS: PCP Family Medicine Geriatric Medicine; Visit Provider Family Medicine Geriatric Medicine
DX: I10 Essential (primary) hypertension (principal); E55.9 Vitamin D deficiency, unspecified; F52.8 Other sexual dysfunction not due to a substance or known physiological condition; Z12.5 Encounter for screening for malignant neoplasm of prostate; L97.525 Non-pressure chronic ulcer of other part of left foot with muscle involvement without evidence of necrosis; L97.512 Non-pressure chronic ulcer of other part of right foot with fat layer exposed
CPT/HCPCS: 11042; 36415; 80053; 82306; 84153; 84403; 84443; 85025; G0103

== ENCOUNTER 2020-07-27 14:39 | Outpatient (RCR) | payer MEDICARE, MEDICAID, SELFPAY ==
[2020-07-26 11:27] VITALS: BMI 42.8
== END 2020-08-21 23:59 ==
LOC: DC 14:39
PROVIDERS: PCP Family Medicine Geriatric Medicine; Visit Provider Podiatrist
DX: Z71.3 Dietary counseling and surveillance (principal); E66.9 Obesity, unspecified; Z68.41 Body mass index [BMI] 40.0-44.9, adult; E11.42 Type 2 diabetes mellitus with diabetic polyneuropathy
CPT/HCPCS: G0109

== ENCOUNTER 2020-08-16 08:45 | Outpatient (RCR) | payer MEDICARE, MEDICAID, SELFPAY ==
[2020-07-23 00:22] VITALS: BP 157/58; PULSE 105; RESP 18; TEMP 36.4
[2020-07-26 11:27] VITALS: BP 162/80; PULSE 105; RESP 18; TEMP 36.2; BMI 42.8
--- NOTE | 2020-07-26 14:18 | PCM.WC.PN ---
(1) Ulcer of left foot with muscle involvement without evidence of necrosis Status: Chronic Code(s): L97.525 - Non-pressure chronic ulcer of other part of left foot with muscle involvement without evidence of necrosis (2) Chronic ulcer of right foot with fat layer exposed Status: Chronic Code(s): L97.512 - Non-pressure chronic ulcer of other part of right foot with fat layer exposed (3) Tobacco abuse counseling Status: Chronic Code(s): Z71.6 - Tobacco abuse counseling (4) Polyneuropathy due to type 2 diabetes mellitus Status: Chronic Code(s): E11.42 - Type 2 diabetes mellitus with diabetic polyneuropathy Type of Wound Date of Service: 07/26/20 Chief Complaint: Diabetic left foot ulceration, Mancilla Grade 3, with infection. Right foot ulcers with resolved infection and medial lower leg History of Wound: This 65-year-old male with multiple comorbidities was seen today for left foot ulcer. His left foot ulcer onset was 12-07-2019. He is previously known to [facility] and had a left transmetatarsal amputation performed previously. He denies diarrhea, rash, fever, chill, nausea, vomiting. He also continues hyperbaric oxygen therapy. He denies redness or odor. He kept his total contact cast on the right lower extremity clean and intact this past week. He just started dakin solution yesterday. Progress of Wound: Improving right. Stable left - Physical Exam Vital Signs Temp Pulse Resp BP 97.2 F L 105 H 18 162/80 H 07/26/20 11:27 07/26/20 11:27 07/26/20 11:27 07/26/20 11:27 General: Alert, Oriented x3, Cooperative, No apparent distress HEENT: Atraumatic Extremities: No cyanosis, Capillary Refill Less than 3 Seconds, No Calf Tenderness, Diminished Peripheral Pulses, Edema Skin: Ulcer/ Wound - No purulence, erythema, streaking, odor, infection. Reduce maceration. His skin is atrophic and hairless Wound Measurements and Assessment WC - Nurse 1 - General Ulcer Measurement Start: 07/26/20 11:27 Freq: Status: Active Protocol: Activity Type Activity Date Activity User E-Sign Co-Sign Detail Recorded Client Recorded Date Recorded By Document 07/26/20 11:27 [facility] [id number] 07/26/20 11:36 [facility] 07/26/20 11:27 Wound Center Nurse 1 [Ulcer Assessment] #9 right lateral plantar -Combined with other wound No -Current Size (cm) - Length 2.1 -Current Size (cm) - Width 2.3 -Current Size (cm) - Depth 0.3 -Total Square Cm 4.83 -Photo Taken No -Epithelialization None Present -Tunneling No -Undermining/Tunneling No -Circular Undermining No -Exudate Amt Medium -Exudate Type Serosanguineous -Wound Margin Distinct, Outline Attached -Granulation Amt Large (67-100%) -Granulation Quality Pale,Red -Slough/Fibrin Yes -Necrosis Amt Small (1-33%) -Necrotic Tissue Type Adherent Slough -Texture (Maria M-wound Skin Appearance) Assessed,Callus ,Scarring -Moisture (Maria M-wound Skin Appearance Assessed,Dry/ ) Scaly -Color (Maria M-wound Skin Appearance) Assessed -Temperature (Maria M-wound Skin No Abnormality Appearance) (Pt Warm) -Tenderness on Palpation (Maria M-wound No Skin Appearance) -Ulcer Cleansing soapy water -Foul Odor after Cleansing No -Anesthetic Used 4% Lidocaine Solution #3 right medial ankle -Combined with other wound No -Current Size (cm) - Length 0.1 -Current Size (cm) - Width 0.1 -Current Size (cm) - Depth 0.1 -Total Square Cm 0.01 -Photo Taken No -Slough/Fibrin Yes -Necrosis Amt Small (1-33%) -Necrotic Tissue Type Adherent Slough -Texture (Maria M-wound Skin Appearance) Assessed, Scarring -Moisture (Maria M-wound Skin Appearance Assessed ) -Color (Maria M-wound Skin Appearance) Assessed -Temperature (Maria M-wound Skin No Abnormality Appearance) (Pt Warm) -Tenderness on Palpation (Maria M-wound No Skin Appearance) -Ulcer Cleansing soapy water -Foul Odor after Cleansing No -Anesthetic Used 4% Lidocaine Solution #1 Left Plantar medial -Combined with other wound No -Current Size (cm) - Length 2.1 -Current Size (cm) - Width 2.3 -Current Size (cm) - Depth 0.1 -Total Square Cm 4.83 -Photo Taken No -Epithelialization None Present -Tunneling No -Undermining/Tunneling No -Circular Undermining No -Exudate Amt Large -Exudate Type Serosanguineous -Wound Margin Distinct, Outline Attached -Granulation Amt Large (67-100%) -Granulation Quality [place] -Slough/Fibrin Yes -Necrosis Amt Small (1-33%) -Necrotic Tissue Type Adherent Slough -Texture (Maria M-wound Skin Appearance) Assessed,Callus ,Scarring -Moisture (Maria M-wound Skin Appearance Assessed,Dry/ ) Scaly -Color (Maria M-wound Skin Appearance) Assessed -Temperature (Maria M-wound Skin No Abnormality Appearance) (Pt Warm) -Tenderness on Palpation (Maria M-wound No Skin Appearance) -Ulcer Cleansing soapy water -Foul Odor after Cleansing No -Anesthetic Used 4% Lidocaine Solution [Edema Assessment] -Lower Limb Edema Present Yes -Right Calf (cm) 43.9 -Right Ankle (cm) 26.5 -Left Calf (cm) 44 -Left Ankle (cm) 27.6 WC - Nurse 2 - General Ulcer CM Notes Start: 07/26/20 11:27 Freq: Status: Active Protocol: Activity Type Activity Date Activity User E-Sign Co-Sign Detail Recorded Client Recorded Date Recorded By Document 07/26/20 11:53 [id number] 07/26/20 11:56 [facility] 07/26/20 11:53 Wound Center Nurse 2 [Procedure/Treatment] #9 right lateral plantar -Time 11:53 -Correct Patient Yes -Correct Side, Site, Position Yes -Correct Procedure Yes -Procedure Performed Yes -Type of Procedure Debridement -Clinical Debridement Subcutaneous -Tissue Removed Subcutaneous -Post Debridement (cm) - Length 2.2 -Post Debridement (cm) - Width 2.3 -Post Debridement (cm) - Depth 0.3 -Total Square (Post) (cm) 5.06 -Area of Debridement (cm) - Length 2.2 -Area of Debridement (cm) - Width 2.3 -Total Square (Area) (cm) 5.06 -Tunneling No -Undermining/Tunneling No -Circular Undermining No -Wound/Ulcer Outcome Not Healed -Ulcer Cleansing Rinsed/ Irrigated with Saline -Foul Odor after Cleansing No -Bioengineered Tissue No -Bleeding Controlled with Pressure -Offloading Yes -Type of Offloading Surgical Shoe -Treatment Response Procedure Tolerated Well -Debridement - Subq, 1st 20sq cm No #3 right medial ankle -Time 11:54 -Correct Patient Yes -Correct Side, Site, Position Yes -Correct Procedure Yes -Procedure Performed Yes -Type of Procedure Debridement -Clinical Debridement Subcutaneous -Tissue Removed Subcutaneous -Post Debridement (cm) - Length 0.4 -Post Debridement (cm) - Width 0.2 -Post Debridement (cm) - Depth 0.1 -Total Square (Post) (cm) 0.08 -Area of Debridement (cm) - Length 0.4 -Area of Debridement (cm) - Width 0.2 -Total Square (Area) (cm) 0.08 -Tunneling No -Undermining/Tunneling No -Circular Undermining No -Wound/Ulcer Outcome Not Healed -Ulcer Cleansing Rinsed/ Irrigated with Saline -Foul Odor after Cleansing No -Bioengineered Tissue No -Bleeding Controlled with Pressure -Offloading No -Treatment Response Procedure Tolerated Well -Debridement - Subq, 1st 20sq cm No #1 Left Plantar medial -Time 11:55 -Correct Patient Yes -Correct Side, Site, Position Yes -Correct Procedure Yes -Procedure Performed Yes -Type of Procedure Debridement -Clinical Debridement Subcutaneous -Tissue Removed Subcutaneous -Post Debridement (cm) - Length 2.2 -Post Debridement (cm) - Width 2.4 -Post Debridement (cm) - Depth 0.2 -Total Square (Post) (cm) 5.28 -Area of Debridement (cm) - Length 2.1 -Area of Debridement (cm) - Width 2.4 -Total Square (Area) (cm) 5.04 -Tunneling No -Undermining/Tunneling No -Circular Undermining No -Wound/Ulcer Outcome Not Healed -Ulcer Cleansing Rinsed/ Irrigated with Saline -Foul Odor after Cleansing No -Bioengineered Tissue No -Bleeding Controlled with Pressure -Offloading Yes -Type of Offloading Surgical Shoe -Treatment Response Procedure Tolerated Well -Debridement - Subq, 1st 20sq cm Yes [See Physician Procedure note for Specifics] Pain Scale: 0-10 Numeric [Pain] -Is Patient Pain Free? Yes WC - Nurse 3 - General Ulcer D/C NN Start: 07/26/20 11:27 Freq: Status: Active Protocol: Activity Type Activity Date Activity User E-Sign Co-Sign Detail Recorded Client Recorded Date Recorded By Document 07/26/20 12:13 DL [id number] 07/26/20 12:16 DL 07/26/20 12:13 Wound Care Nurse 3 [Wound Dressing] #9 right lateral plantar -Ulcer Cleansing Wound Cleanser -Foul Odor after Cleansing No -Primary Dressing Applied Aquacel AG 4x4 -Primary Dressing Covered/Secured Dry Gauze & with Roll Gauze, Secured with Tape -Aquacel AG 4x4 1 #3 right medial ankle -Ulcer Cleansing Wound Cleanser -Foul Odor after Cleansing No -Other Dressing aquacel ag -Primary Dressing Covered/Secured Dry Gauze & with Roll Gauze, Secured with Tape #1 Left Plantar medial -Ulcer Cleansing Wound Cleanser -Foul Odor after Cleansing No -Other Dressing aqaucel ag -Primary Dressing Covered/Secured Dry Gauze & with Roll Gauze, Secured with Tape [Post Procedure Tolerated] -Treatment Response Procedure Tolerated Well Pain Scale: 0-10 Numeric [Pain] -Is Patient Pain Free? Yes WC - Visit Discharge [Visit Discharge Information] -Discharge Condition Stable -Ambulatory Status Ambulatory,Cane -Transportation Private Auto -Notes: Pt to [facility] at home. Musculoskeletal: No Tenderness to Palpation of Joints or Extremities, Muscle Wasting, - - Left transmetatarsal amputation Neurological: - - Lack of normal epicritic sensation is consistent with neuropathy Psych/Mental Status: Normal Affect, Appropriate Debridement Note Post-Debridement Measurements/Treatment WC - Nurse 2 - General Ulcer CM Notes Start: 07/26/20 11:27 Freq: Status: Active Protocol: Activity Type Activity Date Activity User E-Sign Co-Sign Detail Recorded Client Recorded Date Recorded By Document 07/26/20 11:53 CASSY [id number] 07/26/20 11:56 CASSY 07/26/20 11:53 Wound Center Nurse 2 #9 right lateral plantar -Time 11:53 -Correct Patient Yes -Correct Side, Site, Position Yes -Correct Procedure Yes -Procedure Performed Yes -Type of Procedure Debridement -Clinical Debridement Subcutaneous -Tissue Removed Subcutaneous -Post Debridement (cm) - Length 2.2 -Post Debridement (cm) - Width 2.3 -Post Debridement (cm) - Depth 0.3 -Total Square (Post) (cm) 5.06 -Area of Debridement (cm) - Length 2.2 -Area of Debridement (cm) - Width 2.3 -Total Square (Area) (cm) 5.06 -Tunneling No -Undermining/Tunneling No -Circular Undermining No -Wound/Ulcer Outcome Not Healed -Ulcer Cleansing Rinsed/ Irrigated with Saline -Foul Odor after Cleansing No -Bioengineered Tissue No -Bleeding Controlled with Pressure -Offloading Yes -Type of Offloading Surgical Shoe -Treatment Response Procedure Tolerated Well -Debridement - Subq, 1st 20sq cm No #3 right medial ankle -Time 11:54 -Correct Patient Yes -Correct Side, Site, Position Yes -Correct Procedure Yes -Procedure Performed Yes -Type of Procedure Debridement -Clinical Debridement Subcutaneous -Tissue Removed Subcutaneous -Post Debridement (cm) - Length 0.4 -Post Debridement (cm) - Width 0.2 -Post Debridement (cm) - Depth 0.1 -Total Square (Post) (cm) 0.08 -Area of Debridement (cm) - Length 0.4 -Area of Debridement (cm) - Width 0.2 -Total Square (Area) (cm) 0.08 -Tunneling No -Undermining/Tunneling No -Circular Undermining No -Wound/Ulcer Outcome Not Healed -Ulcer Cleansing Rinsed/ Irrigated with Saline -Foul Odor after Cleansing No -Bioengineered Tissue No -Bleeding Controlled with Pressure -Offloading No -Treatment Response Procedure Tolerated Well -Debridement - Subq, 1st 20sq cm No #1 Left Plantar medial -Time 11:55 -Correct Patient Yes -Correct Side, Site, Position Yes -Correct Procedure Yes -Procedure Performed Yes -Type of Procedure Debridement -Clinical Debridement Subcutaneous -Tissue Removed Subcutaneous -Post Debridement (cm) - Length 2.2 -Post Debridement (cm) - Width 2.4 -Post Debridement (cm) - Depth 0.2 -Total Square (Post) (cm) 5.28 -Area of Debridement (cm) - Length 2.1 -Area of Debridement (cm) - Width 2.4 -Total Square (Area) (cm) 5.04 -Tunneling No -Undermining/Tunneling No -Circular Undermining No -Wound/Ulcer Outcome Not Healed -Ulcer Cleansing Rinsed/ Irrigated with Saline -Foul Odor after Cleansing No -Bioengineered Tissue No -Bleeding Controlled with Pressure -Offloading Yes -Type of Offloading Surgical Shoe -Treatment Response Procedure Tolerated Well -Debridement - Subq, 1st 20sq cm Yes Pain Scale: 0-10 Numeric Is Patient Pain Free? Yes WC - Nurse 3 - General Ulcer D/C NN Start: 07/26/20 11:27 Freq: Status: Active Protocol: Activity Type Activity Date Activity User E-Sign Co-Sign Detail Recorded Client Recorded Date Recorded By Document 07/26/20 12:13 DL [id number] 07/26/20 12:16 DL 07/26/20 12:13 Wound Care Nurse 3 #9 right lateral plantar -Ulcer Cleansing Wound Cleanser -Foul Odor after Cleansing No -Primary Dressing Applied Aquacel AG 4x4 -Primary Dressing Covered/Secured with Dry Gauze & Roll Gauze, Secured with Tape -Aquacel AG 4x4 1 #3 right medial ankle -Ulcer Cleansing Wound Cleanser -Foul Odor after Cleansing No -Other Dressing aquacel ag -Primary Dressing Covered/Secured with Dry Gauze & Roll Gauze, Secured with Tape #1 Left Plantar medial -Ulcer Cleansing Wound Cleanser -Foul Odor after Cleansing No -Other Dressing aqaucel ag -Primary Dressing Covered/Secured with Dry Gauze & Roll Gauze, Secured with Tape Treatment Response Procedure Tolerated Well Pain Scale: 0-10 Numeric Is Patient Pain Free? Yes WC - Visit Discharge Discharge Condition Stable Ambulatory Status Ambulatory,Cane Transportation Private Auto Notes: Pt to [facility] at home. Wound debrided: plantar medial foot Laterality: Left Wound Grade/Stage: grade 3 Type of Debridement: Excisional debridement Anesthesia Used: 5% Lidocaine Gel Depth: in the subcutaneous layer Percentage of wound debrided: 100 Instrument Used: #15 blade Tissue Removed: fibrous, devitalized subcutaneous, biofilm, slough Severity: Fat Layer Exposed Amount of bleeding with debridement: Mild Bleeding Controlled with: Pressure Patient tolerated procedure well - Additional Wound Wound debrided: medial ankle, plantar lateral foot Laterality: Left Wound Grade/Stage: grade 1 Type of Debridement: Excisional debridement Anesthesia Used: 5% Lidocaine Gel Depth: in the subcutaneous layer Percentage of wound debrided: 100 Instrument Used: #15 blade Tissue Removed: fibrous, devitalized subcutaneous, biofilm, slough Severity: Fat Layer Exposed Amount of bleeding with debridement: Mild Bleeding Controlled with: Pressure Patient tolerated procedure: Patient tolerated procedure well Assessment/Plan Active Problems (Last Reviewed 04/24/20 @ 15:[address] Juan Arteaga MD) Ulcer of left foot with muscle involvement without evidence of necrosis (Chronic) Chronic ulcer of right foot with fat layer exposed (Chronic) Tobacco abuse counseling (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) Assessment: Left plantar medial foot ulcer, [place]anc[place] Grade 3 -stable. right foot ulcers include plantar lateral, medial ankle - mancilla grade 1. Cellulitis right foot resolved. maceration left foot resolving. Morbid obesity. 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 Subcutaneous excisional debridement was performed as noted in the clinical panel to the left foot and right foot and lower leg. His ulcer status has improved bilateral. There is no longer any tendon exposed today on the left foot. To continue with Dakin's solution daily dressing changes with home health assistance. I do not recommend a total contact cast this week to allow a course of Dakin's solution dressing changes. . I discussed other offloading techniques such as using a walker or a knee roller for the left limb. His noninvasive vascular studies were reviewed from which were normal and intervention was previously not recommended. I advised him to follow-up with all of Dr. Bonilla's recommendations to optimize his healing process. He has for help scheduling this because he has not been able to do this. He has recently been seen and intervention is planned for arterial optimization. An updated bilateral duplex was also recommended to help with planning. He had an updated left foot x-ray which did not demonstrate any new progressive osseous destruction, soft tissue emphysema, fracture, dislocation, or foreign body. I previously recommend that he sees infectious disease because he is very high risk and input is greatly appreciated. He had recent multi-organism culture (MRSA, E facealis, klebs, strep, corynebacterium) results and cellulitis clinical signs to the right foot. This has resolved and there are no clinical or systemic signs of infection noted today. 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 He completed a course of hyperbaric oxygen therapy and this has helped. Additional coverage is not confirmed with his insurance. He will proceed at this time without additional sessions. To continue to work on decreasing glucose levels. He has a history of hyperglycemia. To continue to follow-up with nutritional services. To continue to follow-up as advised. He is currently making adjustments with his eating habits. He also follows up with rounding machine operator, Dr. Arteaga who is working with him to reduce his hemoglobin A1c with medication and behavioral changes. Smoking cessation was discussed in detail and he was advised on the healing impairment associated with this. To continue with his smoking cessation program. I also recommend discontinuation of nicotine products for this also contributes to small vessel contraction. I answered all of his questions today. To return to clinic in 1 week or call sooner if questions, concerns, or progressive worsening.
[2020-08-02 09:27] VITALS: BP 164/109; PULSE 90; RESP 18; TEMP 36.1; BMI 42.8
[2020-08-02 10:22] VITALS: BP 160/100
--- NOTE | 2020-08-02 23:12 | PN.PCM_ITS ---
(1) Ulcer of left foot with muscle involvement without evidence of necrosis Status: Chronic Code(s): L97.525 - Non-pressure chronic ulcer of other part of left foot with muscle involvement without evidence of necrosis (2) Chronic ulcer of right foot with fat layer exposed Status: Chronic Code(s): L97.512 - Non-pressure chronic ulcer of other part of right foot with fat layer exposed (3) Tobacco abuse counseling Status: Chronic Code(s): Z71.6 - Tobacco abuse counseling (4) Polyneuropathy due to type 2 diabetes mellitus Status: Chronic Code(s): E11.42 - Type 2 diabetes mellitus with diabetic polyneuropathy Type of Wound Date of Service: 08/02/20 Chief Complaint: Diabetic left foot ulceration, Mancilla Grade 3, with infection. Right foot ulcers with resolved infection and medial lower leg History of Wound: This 65-year-old male with multiple comorbidities was seen today for left foot ulcer. His left foot ulcer onset was 12-07-2019. He is previously known to or and had a left transmetatarsal amputation performed previously. He denies diarrhea, rash, fever, chill, nausea, vomiting. He also continues hyperbaric oxygen therapy. He denies redness or odor. He took a break from the total contact cast last week. He presents wearing bilateral extra-depth diabetic shoes today and this was not advised. He used [employer] wet-to-dry dressings last week as advised. Progress of Wound: Improving right. Stable left - Physical Exam Vital Signs Temp Pulse Resp BP 97 F L 90 18 160/100 H 08/02/20 09:27 08/02/20 09:27 08/02/20 09:27 08/02/20 10:22 General: Alert, Oriented x3, Cooperative, No apparent distress HEENT: Atraumatic Extremities: No cyanosis, Capillary Refill Less than 3 Seconds, No Calf Tenderness, Diminished Peripheral Pulses, Edema, - - Left transmetatarsal amputation Skin: Ulcer/ Wound - No purulence, erythema, string, odor, infection, exposed deep tissue, necrosis bilateral lower extremities. Skin is hairless and atrophic. Significant peripheral callus to the left foot ulcer site is noted Wound Measurements and Assessment WC - Nurse 1 - General Ulcer Measurement Start: 07/26/20 11:27 Freq: Status: Active Protocol: Activity Type Activity Date Activity User E-Sign Co-Sign Detail Recorded Client Recorded Date Recorded By Document 08/02/20 09:27 DL [id number] 08/02/20 09:36 DANA 08/02/20 09:27 Wound Center Nurse 1 [Ulcer Assessment] #9 right lateral plantar -Combined with other wound No -Current Size (cm) - Length 1.8 -Current Size (cm) - Width 2 -Current Size (cm) - Depth 0.4 -Total Square Cm 3.6 -Tunneling No -Undermining/Tunneling No -Circular Undermining No -Exudate Amt Medium -Exudate Type Serosanguineous -Wound Margin Thickened -Granulation Amt Medium (34-66%) -Granulation Quality [place] -Slough/Fibrin Yes -Necrosis Amt Small (1-33%) -Necrotic Tissue Type Adherent Slough -Structure Exposed N/A -Texture (Maria M-wound Skin Appearance) Assessed -Moisture (Maria M-wound Skin Appearance Assessed ) -Color (Maria M-wound Skin Appearance) Assessed -Temperature (Maria M-wound Skin No Abnormality Appearance) (Pt Warm) -Tenderness on Palpation (Maria M-wound No Skin Appearance) -Ulcer Cleansing Wound Cleanser -Foul Odor after Cleansing No -Anesthetic Used 4% Lidocaine Solution #3 right medial ankle -Combined with other wound No -Current Size (cm) - Length 0.1 -Current Size (cm) - Width 0.1 -Current Size (cm) - Depth 0.1 -Total Square Cm 0.01 -Tunneling No -Undermining/Tunneling No -Circular Undermining No -Exudate Amt None Present -Wound Margin Flat & Intact -Granulation Amt Large (67-100%) -Slough/Fibrin Yes -Necrosis Amt Small (1-33%) -Necrotic Tissue Type Adherent Slough -Structure Exposed N/A -Texture (Maria M-wound Skin Appearance) Assessed -Moisture (Maria M-wound Skin Appearance Assessed ) -Color (Maria M-wound Skin Appearance) Assessed -Temperature (Maria M-wound Skin No Abnormality Appearance) (Pt Warm) -Tenderness on Palpation (Maria M-wound No Skin Appearance) -Ulcer Cleansing Wound Cleanser -Foul Odor after Cleansing No -Anesthetic Used 4% Lidocaine Solution #1 Left Plantar medial -Combined with other wound No -Current Size (cm) - Length 2.1 -Current Size (cm) - Width 1.9 -Current Size (cm) - Depth 0.4 -Total Square Cm 3.99 -Tunneling No -Undermining/Tunneling No -Circular Undermining No -Exudate Amt Large -Exudate Type Serosanguineous -Wound Margin Thickened -Granulation Quality [place] -Slough/Fibrin Yes -Necrosis Amt Small (1-33%) -Necrotic Tissue Type Adherent Slough -Structure Exposed N/A -Texture (Maria M-wound Skin Appearance) Callus -Moisture (Maria M-wound Skin Appearance Assessed ) -Color (Maria M-wound Skin Appearance) Assessed -Temperature (Maria M-wound Skin No Abnormality Appearance) (Pt Warm) -Tenderness on Palpation (Maria M-wound No Skin Appearance) -Ulcer Cleansing Wound Cleanser -Foul Odor after Cleansing No -Anesthetic Used 4% Lidocaine Solution [Edema Assessment] -Lower Limb Edema Present Yes -Right Calf (cm) 43.5 -Right Ankle (cm) 26 -Left Calf (cm) 43.5 -Left Ankle (cm) 26.8 WC - Nurse 2 - General Ulcer CM Notes Start: 07/26/20 11:27 Freq: Status: Active Protocol: Activity Type Activity Date Activity User E-Sign Co-Sign Detail Recorded Client Recorded Date Recorded By Document 08/02/20 10:13 CASSY [id number] 08/02/20 10:20 CASSY 08/02/20 10:13 Wound Center Nurse 2 [Procedure/Treatment] #9 right lateral plantar -Time 10:14 -Correct Patient Yes -Correct Side, Site, Position Yes -Correct Procedure Yes -Procedure Performed Yes -Type of Procedure Debridement -Clinical Debridement Subcutaneous -Tissue Removed Subcutaneous -Post Debridement (cm) - Length 1.8 -Post Debridement (cm) - Width 2.1 -Post Debridement (cm) - Depth 0.4 -Total Square (Post) (cm) 3.78 -Area of Debridement (cm) - Length 1.8 -Area of Debridement (cm) - Width 2.1 -Total Square (Area) (cm) 3.78 -Tunneling No -Undermining/Tunneling No -Circular Undermining No -Wound/Ulcer Outcome Not Healed -Ulcer Cleansing Rinsed/ Irrigated with Saline -Foul Odor after Cleansing No -Bioengineered Tissue No -Bleeding Controlled with Pressure -Offloading Yes -Type of Offloading Camwalker -Treatment Response Procedure Tolerated Well -Debridement - Subq, 1st 20sq cm Yes #3 right medial ankle -Time 10:15 -Correct Patient Yes -Correct Side, Site, Position Yes -Correct Procedure Yes -Procedure Performed Yes -Type of Procedure Debridement -Clinical Debridement Subcutaneous -Tissue Removed Subcutaneous -Post Debridement (cm) - Length 0.1 -Post Debridement (cm) - Width 0.3 -Post Debridement (cm) - Depth 0.1 -Total Square (Post) (cm) 0.03 -Area of Debridement (cm) - Length 0.1 -Area of Debridement (cm) - Width 0.3 -Total Square (Area) (cm) 0.03 -Tunneling No -Undermining/Tunneling No -Circular Undermining No -Wound/Ulcer Outcome Not Healed -Ulcer Cleansing Rinsed/ Irrigated with Saline -Foul Odor after Cleansing No -Bioengineered Tissue No -Bleeding Controlled with Pressure -Offloading Yes -Type of Offloading Camwalker -Treatment Response Procedure Tolerated Well -Debridement - Subq, 1st 20sq cm No #1 Left Plantar medial -Time 10:17 -Correct Patient Yes -Correct Side, Site, Position Yes -Correct Procedure Yes -Procedure Performed Yes -Type of Procedure Debridement -Clinical Debridement Subcutaneous -Tissue Removed Subcutaneous -Post Debridement (cm) - Length 2.2 -Post Debridement (cm) - Width 2.0 -Post Debridement (cm) - Depth 0.3 -Total Square (Post) (cm) 4.40 -Area of Debridement (cm) - Length 2.2 -Area of Debridement (cm) - Width 2.0 -Total Square (Area) (cm) 4.40 -Tunneling No -Undermining/Tunneling No -Circular Undermining No -Wound/Ulcer Outcome Not Healed -Ulcer Cleansing Rinsed/ Irrigated with Saline -Foul Odor after Cleansing No -Bioengineered Tissue Yes -Type of Bioengineered Tissue Epifix -Expiration Date 03/22/25 -Product Lot Number [id number] -Percent Used 100 -Saline Lot Number [id number] -Other saline [id number] exp date 02/2022 -Offloading Yes -Type of Offloading Total Contact Cast (TCC) - Left ($) -Treatment Response Procedure Tolerated Well -Debridement - Subq, 1st 20sq cm No -Apply Skin Sub - 1st 25 sq cm - Feet 1 -Epifix (per sq cm) 4 [See Physician Procedure note for Specifics] Pain Scale: 0-10 Numeric [Pain] -Is Patient Pain Free? Yes WC - Nurse 3 - General Ulcer D/C NN Start: 07/26/20 11:27 Freq: Status: Active Protocol: Activity Type Activity Date Activity User E-Sign Co-Sign Detail Recorded Client Recorded Date Recorded By Document 08/02/20 10:22 DARRELL [id number] 08/02/20 10:26 KR 08/02/20 10:22 Wound Care Nurse 3 [Wound Dressing] #9 right lateral plantar -Primary Dressing Applied Promogran Guru Matter -Primary Dressing Covered/Secured Dry Gauze & with Roll Gauze, Secured with Tape -Promogran Guru Matter 1 #3 right medial ankle -Other Dressing guru -Primary Dressing Covered/Secured Dry Gauze & with Roll Gauze, Secured with Tape #1 Left Plantar medial -Other Dressing primary layer TCC [Post Procedure Tolerated] -Treatment Response Procedure Tolerated Well Vital Signs [Blood Pressure] -Blood Pressure (90/60-120/80) 160/100 H -Blood Pressure Mean (mm Hg) 120 -Source Monitor -Position Semi-Fowlers -Blood Pressure Location Left Arm WC - Visit Discharge [Visit Discharge Information] -Discharge Condition Stable -Ambulatory Status Ambulatory -Transportation Private Auto -Medication Reconcilliation completed No & provided to patient/care provider -Clinical Summary of Care Provided Yes Musculoskeletal: No Tenderness to Palpation of Joints or Extremities, Muscle Wasting Neurological: - - Lack of normal epicritic sensation light touch is consistent with neuropathy status Psych/Mental Status: Normal Affect, Appropriate Debridement Note Post-Debridement Measurements/Treatment WC - Nurse 2 - General Ulcer CM Notes Start: 07/26/20 11:27 Freq: Status: Active Protocol: Activity Type Activity Date Activity User E-Sign Co-Sign Detail Recorded Client Recorded Date Recorded By Document 07/26/20 11:53 CASSY [id number] 07/26/20 11:56 Document 08/02/20 10:13 CASSY [id number] 08/02/20 10:20 07/26/20 08/02/20 11:53 10:13 Wound Center Nurse 2 #9 right lateral plantar -Time 11:53 10:14 -Correct Patient Yes Yes -Correct Side, Site, Position Yes Yes -Correct Procedure Yes Yes -Procedure Performed Yes Yes -Type of Procedure Debridement Debridement -Clinical Debridement Subcutaneous Subcutaneous -Tissue Removed Subcutaneous Subcutaneous -Post Debridement (cm) - Length 2.2 1.8 -Post Debridement (cm) - Width 2.3 2.1 -Post Debridement (cm) - Depth 0.3 0.4 -Total Square (Post) (cm) 5.06 3.78 -Area of Debridement (cm) - Length 2.2 1.8 -Area of Debridement (cm) - Width 2.3 2.1 -Total Square (Area) (cm) 5.06 3.78 -Tunneling No No -Undermining/Tunneling No No -Circular Undermining No No -Wound/Ulcer Outcome Not Healed Not Healed -Ulcer Cleansing Rinsed/ Rinsed/ Irrigated with Irrigated with Saline Saline -Foul Odor after Cleansing No No -Bioengineered Tissue No No -Bleeding Controlled with Pressure Pressure -Offloading Yes Yes -Type of Offloading Surgical Shoe Camwalker -Treatment Response Procedure Procedure Tolerated Well Tolerated Well -Debridement - Subq, 1st 20sq cm No Yes #3 right medial ankle -Time 11:54 10:15 -Correct Patient Yes Yes -Correct Side, Site, Position Yes Yes -Correct Procedure Yes Yes -Procedure Performed Yes Yes -Type of Procedure Debridement Debridement -Clinical Debridement Subcutaneous Subcutaneous -Tissue Removed Subcutaneous Subcutaneous -Post Debridement (cm) - Length 0.4 0.1 -Post Debridement (cm) - Width 0.2 0.3 -Post Debridement (cm) - Depth 0.1 0.1 -Total Square (Post) (cm) 0.08 0.03 -Area of Debridement (cm) - Length 0.4 0.1 -Area of Debridement (cm) - Width 0.2 0.3 -Total Square (Area) (cm) 0.08 0.03 -Tunneling No No -Undermining/Tunneling No No -Circular Undermining No No -Wound/Ulcer Outcome Not Healed Not Healed -Ulcer Cleansing Rinsed/ Rinsed/ Irrigated with Irrigated with Saline Saline -Foul Odor after Cleansing No No -Bioengineered Tissue No No -Bleeding Controlled with Pressure Pressure -Offloading No Yes -Type of Offloading Camwalker -Treatment Response Procedure Procedure Tolerated Well Tolerated Well -Debridement - Subq, 1st 20sq cm No No #1 Left Plantar medial -Time 11:55 10:17 -Correct Patient Yes Yes -Correct Side, Site, Position Yes Yes -Correct Procedure Yes Yes -Procedure Performed Yes Yes -Type of Procedure Debridement Debridement -Clinical Debridement Subcutaneous Subcutaneous -Tissue Removed Subcutaneous Subcutaneous -Post Debridement (cm) - Length 2.2 2.2 -Post Debridement (cm) - Width 2.4 2.0 -Post Debridement (cm) - Depth 0.2 0.3 -Total Square (Post) (cm) 5.28 4.40 -Area of Debridement (cm) - Length 2.1 2.2 -Area of Debridement (cm) - Width 2.4 2.0 -Total Square (Area) (cm) 5.04 4.40 -Tunneling No No -Undermining/Tunneling No No -Circular Undermining No No -Wound/Ulcer Outcome Not Healed Not Healed -Ulcer Cleansing Rinsed/ Rinsed/ Irrigated with Irrigated with Saline Saline -Foul Odor after Cleansing No No -Bioengineered Tissue No Yes -Type of Bioengineered Tissue Epifix -Expiration Date 03/22/25 -Product Lot Number [id number] -Percent Used 100 -Saline Lot Number [id number] -Bleeding Controlled with Pressure -Other saline [id number] exp date 02/2022 -Offloading Yes Yes -Type of Offloading Surgical Shoe Total Contact Cast (TCC) - Left ($) -Treatment Response Procedure Procedure Tolerated Well Tolerated Well -Debridement - Subq, 1st 20sq cm Yes No -Apply Skin Sub - 1st 25 sq cm - Feet 1 -Epifix (per sq cm) 4 Pain Scale: 0-10 Numeric Is Patient Pain Free? Yes Yes WC - Nurse 3 - General Ulcer D/C NN Start: 07/26/20 11:27 Freq: Status: Active Protocol: Activity Type Activity Date Activity User E-Sign Co-Sign Detail Recorded Client Recorded Date Recorded By Document 07/26/20 12:13 DL [id number] 07/26/20 12:16 DL Document 08/02/20 10:22 KR [id number] 08/02/20 10:26 KR 07/26/20 08/02/20 12:13 10:22 Wound Care Nurse 3 #9 right lateral plantar -Ulcer Cleansing Wound Cleanser -Foul Odor after Cleansing No -Primary Dressing Applied Aquacel AG 4x4 Promogran Guru Matter -Primary Dressing Covered/Secured with Dry Gauze & Dry Gauze & Roll Gauze, Roll Gauze, Secured with Secured with Tape Tape -Aquacel AG 4x4 1 -Promogran Guru Matter 1 #3 right medial ankle -Ulcer Cleansing Wound Cleanser -Foul Odor after Cleansing No -Other Dressing aquacel ag guru -Primary Dressing Covered/Secured with Dry Gauze & Dry Gauze & Roll Gauze, Roll Gauze, Secured with Secured with Tape Tape #1 Left Plantar medial -Ulcer Cleansing Wound Cleanser -Foul Odor after Cleansing No -Other Dressing aqaucel ag primary layer TCC -Primary Dressing Covered/Secured with Dry Gauze & Roll Gauze, Secured with Tape Treatment Response Procedure Procedure Tolerated Well Tolerated Well Vital Signs Blood Pressure (90/60-120/80) 160/100 H Blood Pressure Mean (mm Hg) 120 Source Monitor Position Semi-Fowlers Blood Pressure Location Left Arm Pain Scale: 0-10 Numeric Is Patient Pain Free? Yes WC - Visit Discharge Discharge Condition Stable Stable Ambulatory Status Ambulatory,Cane Ambulatory Transportation Private Auto Private Auto Medication Reconcilliation completed & No provided to patient/care provider Clinical Summary of Care Provided Yes Notes: Pt to [facility] at home. Wound debrided: plantar medial Laterality: Left Wound Grade/Stage: grade 3 Type of Debridement: Excisional debridement Anesthesia Used: 5% Lidocaine Gel Depth: in the subcutaneous layer Percentage of wound debrided: 100 Instrument Used: #15 blade Tissue Removed: fibrous, devitalized subcutaneous tissue, biofilm, slough Severity: Fat Layer Exposed Amount of bleeding with debridement: Mild Bleeding Controlled with: Pressure Patient tolerated procedure well - Additional Wound Wound debrided: sub 5th metatarsal head ulcer , medial lower leg/ankle Laterality: Right Wound Grade/Stage: grade 1 Type of Debridement: Excisional debridement Anesthesia Used: 5% Lidocaine Gel Depth: in the subcutaneous layer Percentage of wound debrided: 100 Instrument Used: #15 blade Tissue Removed: fibrous, devitalized subcutaneous tissue, biofilm, slough Severity: Fat Layer Exposed Amount of bleeding with debridement: Mild Bleeding Controlled with: Pressure Patient tolerated procedure: Patient tolerated procedure well Assessment/Plan Active Problems (Last Reviewed 07/31/20 @ 11:[address] Juan Arteaga MD) Ulcer of left foot with muscle involvement without evidence of necrosis (Chronic) Chronic ulcer of right foot with fat layer exposed (Chronic) Tobacco abuse counseling (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) Assessment: Left plantar medial foot ulcer, [place] Grade 3 -stable. right foot ulcers include plantar lateral, medial ankle - [place] grade 1. Cellulitis right foot resolved. maceration left foot resolving. Morbid obesity. 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 Subcutaneous excisional debridement wa s performed as noted in the clinical panel to the left foot and right foot and lower leg. His ulcer status has improved bilateral. There is no longer any tendon exposed today on the left foot. To change right foot ulcer sites daily with [email or web address] Ag. Reapplication of Apligraf is recommended and continued insurance authorization will be confirmed prior to ordering for next Friday. He understands the benefits and indications of this product. A well-padded total contact cast in neutral position was applied to the left lower extremity after verbal consent was obtained. He tolerated this well. To keep clean dry and intact. I discussed other offloading techniques such as using a walker or a knee roller for the left limb. His noninvasive vascular studies were reviewed from which were normal and intervention was previously not recommended. I advised him to follow-up with all of Dr. Bonilla's recommendations to optimize his healing process. He has for help scheduling this because he has not been able to do this. He has recently been seen and intervention is planned for arterial optimization. An updated bilateral duplex was also recommended to help with planning. He had an updated left foot x-ray which did not demonstrate any new progressive osseous destruction, soft tissue emphysema, fracture, dislocation, or foreign body. I previously recommend that he sees infectious disease because he is very high risk and input is greatly appreciated. He had recent multi-organism culture (MRSA, E facealis, klebs, strep, corynebacterium) results and cellulitis clinical signs to the right foot. This has resolved and there are no clinical or systemic signs of infection noted today. 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 He completed a course of hyperbaric oxygen therapy and this has helped. Additional coverage is not confirmed with his insurance. He will proceed at this time without additional sessions. To continue to work on decreasing glucose levels. He has a history of hyperglycemia. To continue follow-up with primary care physician. To continue to follow-up with nutritional services. To continue to follow-up as advised. He is currently making adjustments with his eating habits. He also follows up with branch customer service representative, Dr. Arteaga who is working with him to reduce his hemoglobin A1c with medication and behavioral changes. Smoking cessation was discussed in detail and he was advised on the healing impairment associated with this. To continue with his smoking cessation program. I also recommend discontinuation of nicotine products for this also contributes to small vessel contraction. I answered all of his questions today. To return to clinic in 1 week or call sooner if questions, concerns, or progressive worsening.
[2020-08-09 11:11] VITALS: BP 113/81; PULSE 90; RESP 18; TEMP 36.6; BMI 42.8
[2020-08-09 11:59] VITALS: BP 130/84
--- NOTE | 2020-08-09 19:06 | PCM.WC.PN ---
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 Right foot ulcers with resolved infection and medial lower leg History of Wound: This 65-year-old male with multiple comorbidities was seen today for left foot ulcer. His left foot ulcer onset was 12-07-2019. He is previously known to me and had a left transmetatarsal amputation performed previously. He denies diarrhea, rash, fever, chill, nausea, vomiting. He completed hyperbaric oxygen therapy sessions. He denies redness or odor. He kept his total contact cast intact last week. He relates he actually bumped his right foot ulcer on something while he was bathing earlier this week and it caused a decent amount of bleeding that has since been controlled. Progress of Wound: Improving right. left improving - Physical Exam Vital Signs Temp Pulse Resp BP 97.8 F 90 18 130/84 H 08/09/20 11:11 08/09/20 11:11 08/09/20 11:11 08/09/20 11:59 General: Alert, Oriented x3, Cooperative, No apparent distress Extremities: No cyanosis, Capillary Refill Less than 3 Seconds, No Calf Tenderness, Diminished Peripheral Pulses, Edema Skin: Ulcer/ Wound - No purulence, erythema, streaking, odor, deep probing or necrosis. Adjacent skin is hairless and atrophic Wound Measurements and Assessment WC - Nurse 1 - General Ulcer Measurement Start: 07/26/20 11:27 Freq: Status: Active Protocol: Activity Type Activity Date Activity User E-Sign Co-Sign Detail Recorded Client Recorded Date Recorded By Document 08/09/20 11:11 RB [id number] 08/09/20 11:16 RB 08/09/20 11:11 Wound Center Nurse 1 [Ulcer Assessment] #9 right lateral plantar -Current Size (cm) - Length 2 -Current Size (cm) - Width 1.5 -Current Size (cm) - Depth 0.3 -Total Square Cm 3.0 -Tunneling No -Undermining/Tunneling No -Circular Undermining No -Exudate Amt Medium -Exudate Type Serosanguineous -Wound Margin Thickened -Granulation Amt Medium (34-66%) -Granulation Quality [place] -Slough/Fibrin Yes -Necrotic Tissue Type Adherent Slough -Structure Exposed N/A -Texture (Maria M-wound Skin Appearance) Callus -Moisture (Maria M-wound Skin Appearance Assessed ) -Color (Maria M-wound Skin Appearance) Assessed -Temperature (Maria M-wound Skin No Abnormality Appearance) (Pt Warm) -Tenderness on Palpation (Maria M-wound No Skin Appearance) -Ulcer Cleansing Wound Cleanser -Foul Odor after Cleansing No -Anesthetic Used 4% Lidocaine Solution #3 right medial ankle -Combined with other wound No -Current Size (cm) - Length 1.3 -Current Size (cm) - Width 1 -Current Size (cm) - Depth 0.1 -Total Square Cm 1.3 -Tunneling No -Undermining/Tunneling No -Circular Undermining No -Exudate Amt Small -Exudate Type Serosanguineous -Wound Margin Flat & Intact -Granulation Amt Medium (34-66%) -Granulation Quality [place] -Slough/Fibrin Yes -Necrosis Amt Small (1-33%) -Necrotic Tissue Type Adherent Slough -Structure Exposed N/A -Texture (Maria M-wound Skin Appearance) Assessed -Moisture (Maria M-wound Skin Appearance Assessed ) -Color (Maria M-wound Skin Appearance) Assessed -Temperature (Maria M-wound Skin No Abnormality Appearance) (Pt Warm) -Tenderness on Palpation (Maria M-wound No Skin Appearance) -Ulcer Cleansing Wound Cleanser -Foul Odor after Cleansing No -Anesthetic Used 4% Lidocaine Solution #1 Left Plantar medial -Combined with other wound No -Current Size (cm) - Length 2 -Current Size (cm) - Width 1.7 -Current Size (cm) - Depth 0.5 -Total Square Cm 3.4 -Tunneling No -Undermining/Tunneling No -Circular Undermining No -Exudate Amt Medium -Exudate Type Serosanguineous -Wound Margin Thickened -Granulation Amt Medium (34-66%) -Granulation Quality [place] -Slough/Fibrin Yes -Necrosis Amt Small (1-33%) -Structure Exposed N/A -Texture (Maria M-wound Skin Appearance) Callus -Moisture (Maria M-wound Skin Appearance Assessed ) -Color (Maria M-wound Skin Appearance) Assessed -Temperature (Maria M-wound Skin No Abnormality Appearance) (Pt Warm) -Tenderness on Palpation (Maria M-wound No Skin Appearance) -Ulcer Cleansing Wound Cleanser -Foul Odor after Cleansing No -Anesthetic Used 4% Lidocaine Solution [Edema Assessment] -Lower Limb Edema Present Yes -Right Calf (cm) 46 -Right Ankle (cm) 26 -Left Calf (cm) 45.5 -Left Ankle (cm) 27.5 WC - Nurse 2 - General Ulcer CM Notes Start: 07/26/20 11:27 Freq: Status: Active Protocol: Activity Type Activity Date Activity User E-Sign Co-Sign Detail Recorded Client Recorded Date Recorded By Document 08/09/20 11:32 [email or web address] [id number] 08/09/20 11:43 CASSY 08/09/20 11:32 Wound Center Nurse 2 [Procedure/Treatment] #9 right lateral plantar -Time 11:32 -Correct Patient Yes -Correct Side, Site, Position Yes -Correct Procedure Yes -Procedure Performed Yes -Type of Procedure Debridement -Clinical Debridement Subcutaneous -Tissue Removed Subcutaneous -Post Debridement (cm) - Length 2.2 -Post Debridement (cm) - Width 1.9 -Post Debridement (cm) - Depth 0.2 -Total Square (Post) (cm) 4.18 -Area of Debridement (cm) - Length 2.2 -Area of Debridement (cm) - Width 1.9 -Total Square (Area) (cm) 4.18 -Tunneling No -Undermining/Tunneling No -Circular Undermining No -Ulcer Cleansing Rinsed/ Irrigated with Saline -Bioengineered Tissue No -Bleeding Controlled with Pressure -Offloading Yes -Type of Offloading Surgical Shoe -Treatment Response Procedure Tolerated Well -Debridement - Subq, 1st 20sq cm No #3 right medial ankle -Time 11:33 -Correct Patient Yes -Correct Side, Site, Position Yes -Correct Procedure Yes -Procedure Performed Yes -Type of Procedure Debridement -Clinical Debridement Subcutaneous -Tissue Removed Subcutaneous -Post Debridement (cm) - Length 1.5 -Post Debridement (cm) - Width 0.9 -Post Debridement (cm) - Depth 0.1 -Total Square (Post) (cm) 1.35 -Area of Debridement (cm) - Length 1.5 -Area of Debridement (cm) - Width 0.9 -Total Square (Area) (cm) 1.35 -Tunneling No -Undermining/Tunneling No -Circular Undermining No -Wound/Ulcer Outcome Not Healed -Ulcer Cleansing Rinsed/ Irrigated with Saline -Foul Odor after Cleansing No -Bioengineered Tissue No -Bleeding Controlled with Pressure -Offloading Yes -Type of Offloading Surgical Shoe -Treatment Response Procedure Tolerated Well -Debridement - Subq, 1st 20sq cm Yes #1 Left Plantar medial -Time 11:33 -Correct Patient Yes -Correct Side, Site, Position Yes -Procedure Performed Yes -Type of Procedure Debridement -Clinical Debridement Subcutaneous -Tissue Removed Subcutaneous -Post Debridement (cm) - Length 2.1 -Post Debridement (cm) - Width 1.8 -Post Debridement (cm) - Depth 0.2 -Total Square (Post) (cm) 3.78 -Area of Debridement (cm) - Length 2.1 -Area of Debridement (cm) - Width 1.8 -Total Square (Area) (cm) 3.78 -Tunneling No -Undermining/Tunneling No -Circular Undermining No -Wound/Ulcer Outcome Not Healed -Ulcer Cleansing Rinsed/ Irrigated with Saline -Foul Odor after Cleansing No -Bioengineered Tissue Yes -Type of Bioengineered Tissue Epifix -Expiration Date 03/22/25 -Product Lot Number [id number] -Percent Used 100 -Saline Lot Number [id number] -Bleeding Controlled with Pressure -Other saline [id number] -Offloading Yes -Type of Offloading Total Contact Cast (TCC) - Left ($) -Treatment Response Procedure Tolerated Well -Debridement - Subq, 1st 20sq cm No -Apply Skin Sub - 1st 25 sq cm - Feet 1 -Epifix (per sq cm) 4 [See Physician Procedure note for Specifics] Pain Scale: 0-10 Numeric [Pain] -Is Patient Pain Free? Yes WC - Nurse 3 - General Ulcer D/C NN Start: 07/26/20 11:27 Freq: Status: Active Protocol: Activity Type Activity Date Activity User E-Sign Co-Sign Detail Recorded Client Recorded Date Recorded By Document 08/09/20 11:59 [email or web address] [id number] 08/09/20 12:01 KR 08/09/20 11:59 Wound Care Nurse 3 [Wound Dressing] #9 right lateral plantar -Primary Dressing Applied Promogran Guru Matter -Primary Dressing Covered/Secured Dry Gauze,Dry with Gauze & Roll Gauze,Secured with Tape -Promogran Guru Matter 1 #3 right medial ankle -Other Dressing guru -Primary Dressing Covered/Secured Dry Gauze,Dry with Gauze & Roll Gauze,Secured with Tape #1 Left Plantar medial -Other Dressing primary layer TCC applied [Post Procedure Tolerated] -Treatment Response Procedure Tolerated Well Vital Signs [Blood Pressure] -Blood Pressure (90/60-120/80) 130/84 H -Blood Pressure Mean (mm Hg) 99 -Source Monitor -Position Sitting -Blood Pressure Location Left Arm Pain Scale: 0-10 Numeric [Pain] -Is Patient Pain Free? Yes WC - Visit Discharge [Visit Discharge Information] -Discharge Condition Stable -Ambulatory Status Ambulatory,Cane -Transportation Private Auto -Medication Reconcilliation completed No & provided to patient/care provider -Clinical Summary of Care Provided Yes -Notes: primary TCC applied to LLE Musculoskeletal: No Tenderness to Palpation of Joints or Extremities, Muscle Wasting, - - Left transmetatarsal amputation. Right hammertoes Neurological: - - Lack of epicritic sensation consistent with neuropathy status Psych/Mental Status: Normal Affect, Appropriate Debridement Note Post-Debridement Measurements/Treatment WC - Nurse 2 - General Ulcer CM Notes Start: 07/26/20 11:27 Freq: Status: Active Protocol: Activity Type Activity Date Activity User E-Sign Co-Sign Detail Recorded Client Recorded Date Recorded By Document 07/26/20 11:53 [id number] 07/26/20 11:56 Document 08/02/20 10:13 [id number] 08/02/20 10:20 Document 08/09/20 11:32 [id number] 08/09/20 11:43 07/26/20 08/02/20 08/09/20 11:53 10:13 11:32 Wound Center Nurse 2 #9 right lateral plantar -Time 11:53 10:14 11:32 -Correct Patient Yes Yes Yes -Correct Side, Site, Position Yes Yes Yes -Correct Procedure Yes Yes Yes -Procedure Performed Yes Yes Yes -Type of Procedure Debridement Debridement Debridement -Clinical Debridement Subcutaneous Subcutaneous Subcutaneous -Tissue Removed Subcutaneous Subcutaneous Subcutaneous -Post Debridement (cm) - Length 2.2 1.8 2.2 -Post Debridement (cm) - Width 2.3 2.1 1.9 -Post Debridement (cm) - Depth 0.3 0.4 0.2 -Total Square (Post) (cm) 5.06 3.78 4.18 -Area of Debridement (cm) - Length 2.2 1.8 2.2 -Area of Debridement (cm) - Width 2.3 2.1 1.9 -Total Square (Area) (cm) 5.06 3.78 4.18 -Tunneling No No No -Undermining/Tunneling No No No -Circular Undermining No No No -Wound/Ulcer Outcome Not Healed Not Healed -Ulcer Cleansing Rinsed/ Rinsed/ Rinsed/ Irrigated with Irrigated with Irrigated with Saline Saline Saline -Foul Odor after Cleansing No No -Bioengineered Tissue No No No -Bleeding Controlled with Pressure Pressure Pressure -Offloading Yes Yes Yes -Type of Offloading [facility] -Treatment Response Procedure Procedure Procedure Tolerated Well Tolerated Well Tolerated Well -Debridement - Subq, 1st 20sq cm No Yes No #3 right medial ankle -Time 11:54 10:15 11:33 -Correct Patient Yes Yes Yes -Correct Side, Site, Position Yes Yes Yes -Correct Procedure Yes Yes Yes -Procedure Performed Yes Yes Yes -Type of Procedure Debridement Debridement Debridement -Clinical Debridement Subcutaneous Subcutaneous Subcutaneous -Tissue Removed Subcutaneous Subcutaneous Subcutaneous -Post Debridement (cm) - Length 0.4 0.1 1.5 -Post Debridement (cm) - Width 0.2 0.3 0.9 -Post Debridement (cm) - Depth 0.1 0.1 0.1 -Total Square (Post) (cm) 0.08 0.03 1.35 -Area of Debridement (cm) - Length 0.4 0.1 1.5 -Area of Debridement (cm) - Width 0.2 0.3 0.9 -Total Square (Area) (cm) 0.08 0.03 1.35 -Tunneling No No No -Undermining/Tunneling No No No -Circular Undermining No No No -Wound/Ulcer Outcome Not Healed Not Healed Not Healed -Ulcer Cleansing Rinsed/ Rinsed/ Rinsed/ Irrigated with Irrigated with Irrigated with Saline Saline Saline -Foul Odor after Cleansing No No No -Bioengineered Tissue No No No -Bleeding Controlled with Pressure Pressure Pressure -Offloading No Yes Yes -Type of Offloading [place] Surgical Shoe -Treatment Response Procedure Procedure Procedure Tolerated Well Tolerated Well Tolerated Well -Debridement - Subq, 1st 20sq cm No No Yes #1 Left Plantar medial -Time 11:55 10:17 11:33 -Correct Patient Yes Yes Yes -Correct Side, Site, Position Yes Yes Yes -Correct Procedure Yes Yes -Procedure Performed Yes Yes Yes -Type of Procedure Debridement Debridement Debridement -Clinical Debridement Subcutaneous Subcutaneous Subcutaneous -Tissue Removed Subcutaneous Subcutaneous Subcutaneous -Post Debridement (cm) - Length 2.2 2.2 2.1 -Post Debridement (cm) - Width 2.4 2.0 1.8 -Post Debridement (cm) - Depth 0.2 0.3 0.2 -Total Square (Post) (cm) 5.28 4.40 3.78 -Area of Debridement (cm) - Length 2.1 2.2 2.1 -Area of Debridement (cm) - Width 2.4 2.0 1.8 -Total Square (Area) (cm) 5.04 4.40 3.78 -Tunneling No No No -Undermining/Tunneling No No No -Circular Undermining No No No -Wound/Ulcer Outcome Not Healed Not Healed Not Healed -Ulcer Cleansing Rinsed/ Rinsed/ Rinsed/ Irrigated with Irrigated with Irrigated with Saline Saline Saline -Foul Odor after Cleansing No No No -Bioengineered Tissue No Yes Yes -Type of Bioengineered Tissue Epifix Epifix -Expiration Date 03/22/25 03/22/25 -Product Lot Number [id number] -Percent Used 100 100 -Saline Lot Number [id number] -Bleeding Controlled with Pressure Pressure -Other saline [id number] saline [id number] exp date 02/2022 -Offloading Yes Yes Yes -Type of Offloading Surgical Shoe Total Contact Total Contact Cast (TCC) - Cast (TCC) - Left ($) Left ($) -Treatment Response Procedure Procedure Procedure Tolerated Well Tolerated Well Tolerated Well -Debridement - Subq, 1st 20sq cm Yes No No -Apply Skin Sub - 1st 25 sq cm - Feet 1 1 -Epifix (per sq cm) 4 4 Pain Scale: 0-10 Numeric Is Patient Pain Free? Yes Yes Yes - Nurse 3 - General Ulcer D/C NN Start: 07/26/20 11:27 Freq: Status: Active Protocol: Activity Type Activity Date Activity User E-Sign Co-Sign Detail Recorded Client Recorded Date Recorded By Document 07/26/20 12:13 DL [id number] 07/26/20 12:16 DL Document 08/02/20 10:22 KR [id number] 08/02/20 10:26 KR Document 08/09/20 11:59 KR [id number] 08/09/20 12:01 KR 07/26/20 08/02/20 08/09/20 12:13 10:22 11:59 Wound Care Nurse 3 #9 right lateral plantar -Ulcer Cleansing Wound Cleanser -Foul Odor after Cleansing No -Primary Dressing Applied Aquacel AG 4x4 Promogran Promogran Guru Matter Guru Matter -Primary Dressing Covered/Secured with Dry Gauze & Dry Gauze & Dry Gauze,Dry Roll Gauze, Roll Gauze, Gauze & Roll Secured with Secured with Gauze,Secured Tape Tape with Tape -Aquacel AG 4x4 1 -Promogran Guru Matter 1 1 #3 right medial ankle -Ulcer Cleansing Wound Cleanser -Foul Odor after Cleansing No -Other Dressing aquacel ag guru guru -Primary Dressing Covered/Secured with Dry Gauze & Dry Gauze & Dry Gauze,Dry Roll Gauze, Roll Gauze, Gauze & Roll Secured with Secured with Gauze,Secured Tape Tape with Tape #1 Left Plantar medial -Ulcer Cleansing Wound Cleanser -Foul Odor after Cleansing No -Other Dressing aqaucel ag primary layer primary layer TCC TCC applied -Primary Dressing Covered/Secured with Dry Gauze & Roll Gauze, Secured with Tape Treatment Response Procedure Procedure Procedure Tolerated Well Tolerated Well Tolerated Well Vital Signs Blood Pressure (90/60-120/80) 160/100 H 130/84 H Blood Pressure Mean (mm Hg) 120 99 Source Monitor Monitor Position Semi-Fowlers Sitting Blood Pressure Location Left Arm Left Arm Pain Scale: 0-10 Numeric Is Patient Pain Free? Yes Yes WC - Visit Discharge Discharge Condition Stable Stable Stable Ambulatory Status Ambulatory,Cane Ambulatory Ambulatory,Cane Transportation Private Auto Private Auto Private Auto Medication Reconcilliation completed & No No provided to patient/care provider Clinical Summary of Care Provided Yes Yes Notes: Pt to [facility] primary TCC [place] [facility] [place]. applied to LLE Wound debrided: sub 5 metatarsal head ulcer, medial lower leg Laterality: Right Wound Grade/Stage: grade 1 Type of Debridement: Excisional debridement Anesthesia Used: 5% Lidocaine Gel Depth: in the subcutaneous layer Percentage of wound debrided: 100 Instrument Used: #15 blade Tissue Removed: fibrous, devitalized subcutaneous, biofilm, slough Severity: Fat Layer Exposed Amount of bleeding with debridement: Mild Bleeding Controlled with: Pressure Patient tolerated procedure well - Additional Wound Wound debrided: plantar medial foot Laterality: Left Wound Grade/Stage: grade 3 Type of Debridement: Excisional debridement Anesthesia Used: 5% Lidocaine Gel Depth: in the subcutaneous layer Percentage of wound debrided: 100 Instrument Used: #15 blade Tissue Removed: fibrous, devitalized subcutaneous, biofilm, slough Severity: Fat Layer Exposed Amount of bleeding with debridement: Mild Bleeding Controlled with: Pressure Patient tolerated procedure: Patient tolerated procedure well Assessment/Plan Active Problems (Last Reviewed 07/31/20 @ 11:[address] Juan Arteaga MD) Ulcer of left foot with muscle involvement without evidence of necrosis (Chronic) Chronic ulcer of right foot with fat layer exposed (Chronic) Tobacco abuse counseling (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) Assessment: Left plantar medial foot ulcer, [place] Grade 3 -stable. right foot ulcers include plantar lateral, medial ankle - [place] grade 1. Cellulitis right foot resolved. Morbid obesity. Diabetes type 2 with complications. 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 Subcutaneous excisional debridement was performed as noted in the clinical panel to the left foot and right foot and lower leg. His ulcer status has improved bilateral. There is no longer any tendon exposed today on the left foot. To change right foot ulcer sites daily with guru. Reapplication of epifix is recommended. This was applied according to standard protocol after verbal consent was obtained. He understands the benefits and indications of this product. This was secured in place with Steri-Strips and he tolerated this well, left foot. A well-padded total contact cast in neutral position was applied to the left lower extremity after verbal consent was obtained. He tolerated this well. To keep clean dry and intact. He was also reassured he do not see any new injuries or infections on the right lower extremity. I discussed other offloading techniques such as using a walker or a knee roller for the left limb. His noninvasive vascular studies were reviewed from which were normal and intervention was previously not recommended. I advised him to follow-up with all of Dr. Bonilla's recommendations to optimize his healing process. He has for help scheduling this because he has not been able to do this. He has recently been seen and intervention is planned for arterial optimization. An updated bilateral duplex was also recommended to help with planning. He had an updated left foot x-ray which did not demonstrate any new progressive osseous destruction, soft tissue emphysema, fracture, dislocation, or foreign body. I previously recommend that he sees infectious disease because he is very high risk and input is greatly appreciated. He had recent multi-organism culture (MRSA, E facealis, klebs, strep, corynebacterium) results and cellulitis clinical signs to the right foot. This has resolved and there are no clinical or systemic signs of infection noted today. 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 He completed a course of hyperbaric oxygen therapy and this has helped. Additional coverage is not confirmed with his insurance. He will proceed at this time without additional sessions. To continue to work on decreasing glucose levels. He has a history of hyperglycemia. To continue follow-up with primary care physician. To continue to follow-up with nutritional services. To continue to follow-up as advised. He is currently making adjustments with his eating habits. He also follows up with manager field services, Dr. Arteaga who is working with him to reduce his hemoglobin A1c with medication and behavioral changes. Smoking cessation was discussed in detail and he was advised on the healing impairment associated with this. To continue with his smoking cessation program. I also recommend discontinuation of nicotine products for this also contributes to small vessel contraction. I answered all of his questions today. To return to clinic in 1 week or call sooner if questions, concerns, or progressive worsening.
[2020-08-16 08:38] VITALS: BP 144/78; PULSE 91; RESP 18; TEMP 37; BMI 42.8
--- NOTE | 2020-08-16 10:12 | PCM.WC.PN ---
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 Status: Chronic Code(s): L97.513 - Non-pressure chronic ulcer of other part of right foot with necrosis of muscle Comment: no necrosis clarified (2) Ulcer of left foot with muscle involvement without evidence of necrosis Status: Chronic Code(s): L97.525 - Non-pressure chronic ulcer of other part of left foot with muscle involvement without evidence of necrosis (3) Tobacco abuse counseling Status: Chronic Code(s): Z71.6 - Tobacco abuse counseling (4) Polyneuropathy due to type 2 diabetes mellitus Status: Chronic Code(s): E11.42 - Type 2 diabetes mellitus with diabetic polyneuropathy (5) Injury of right foot Status: Acute Qualifiers: Encounter type: initial encounter Qualified Code(s): S99.921A - Unspecified injury of right foot, initial encounter Code(s): S99.921A - Unspecified injury of right foot, initial encounter Type of Wound Date of Service: 08/16/20 Chief Complaint: Diabetic left foot ulceration, [place] Grade 3, with infection. Right foot ulcer History of Wound: This 65-year-old male with multiple comorbidities was seen today for left foot ulcer. His left foot ulcer onset was 12-07-2019. He is previously known to me and had a left transmetatarsal amputation performed previously. He denies diarrhea, rash, fever, chill, nausea, vomiting. He completed hyperbaric oxygen therapy sessions. He denies redness or odor. He kept his total contact cast intact last week. He relates he actually bumped his right foot ulcer on something while he was bathing earlier last week and it caused a decent amount of bleeding that has since been controlled. This site has now become painful within the past 2 days. He denies redness or odor from the site. He relates that it does bleed when he walks on it. He relates he offloads it only 50% of the time and often is wearing a regular shoe. He expresses frustration with his delayed healing. He also admits sometimes he walks on a total contact cast without the cast boot. Progress of Wound: Worse status right. left improving - Physical Exam Vital Signs Temp Pulse Resp BP 98.6 F 91 18 144/78 H 08/16/20 08:38 08/16/20 08:38 08/16/20 08:38 08/16/20 08:38 General: Alert, Oriented x3, Cooperative, No apparent distress HEENT: Atraumatic Extremities: No cyanosis, Capillary Refill Less than 3 Seconds, No Calf Tenderness, Diminished Peripheral Pulses, Edema, - - No pain on palpation to fifth metatarsal head without laxity or crepitus also Skin: Ulcer/ Wound - No purulence, erythema, streaking, odor, infection. No bogginess or fluctuance. There is decreased periulcer inflammation left with decreased callus that still formed. The right foot now has exposed healthy tendon without probe to bone. This is worse status with deeper tissue exposed now., - - There is no odor or maceration bilateral. His adjacent skin is hairless and atrophic. He has scattered excoriations to bilateral lower extremities that appear stable Wound Measurements and Assessment WC - Nurse 1 - General Ulcer Measurement Start: 07/26/20 11:27 Freq: Status: Active Protocol: Activity Type Activity Date Activity User E-Sign Co-Sign Detail Recorded Client Recorded Date Recorded By Document 08/16/20 08:38 [id number] 08/16/20 08:53 RB 08/16/20 08:38 Wound Center Nurse 1 [Ulcer Assessment] #9 right lateral plantar -Combined with other wound No -Current Size (cm) - Length 1.7 -Current Size (cm) - Width 2 -Current Size (cm) - Depth 0.3 -Total Square Cm 3.4 -Tunneling No -Undermining/Tunneling No -Circular Undermining No -Exudate Amt Small -Exudate Type Serosanguineous -Wound Margin Thickened -Granulation Amt Medium (34-66%) -Granulation Quality Flora -Slough/Fibrin Yes -Necrosis Amt Medium (34-66%) -Necrotic Tissue Type Adherent Slough -Structure Exposed N/A -Texture (Maria M-wound Skin Appearance) Assessed,Callus -Moisture (Maria M-wound Skin Appearance Assessed ) -Color (Maria M-wound Skin Appearance) Assessed -Temperature (Maria M-wound Skin No Abnormality Appearance) (Pt Warm) -Tenderness on Palpation (Maria M-wound No Skin Appearance) -Ulcer Cleansing Wound Cleanser -Foul Odor after Cleansing No -Anesthetic Used 4% Lidocaine Solution #3 right medial ankle -Combined with other wound No -Current Size (cm) - Length 0.1 -Current Size (cm) - Width 0.1 -Current Size (cm) - Depth 0.1 -Total Square Cm 0.01 -Epithelialization Large 67-100% -Tunneling No -Undermining/Tunneling No -Circular Undermining No -Exudate Amt None Present -Wound Margin Flat & Intact -Granulation Amt Large (67-100%) -Granulation Quality Flora -Necrosis Amt None Present (0 %) -Structure Exposed N/A -Texture (Maria M-wound Skin Appearance) Assessed -Moisture (Maria M-wound Skin Appearance Assessed ) -Color (Maria M-wound Skin Appearance) Assessed -Temperature (Maria M-wound Skin No Abnormality Appearance) (Pt Warm) -Tenderness on Palpation (Maria M-wound No Skin Appearance) -Ulcer Cleansing Wound Cleanser -Foul Odor after Cleansing No -Anesthetic Used 4% Lidocaine Solution #1 Left Plantar medial -Combined with other wound No -Current Size (cm) - Length 1.7 -Current Size (cm) - Width 1.6 -Current Size (cm) - Depth 0.2 -Total Square Cm 2.72 -Tunneling No -Undermining/Tunneling No -Circular Undermining No -Exudate Amt Small -Exudate Type Serosanguineous -Wound Margin Thickened -Granulation Amt Medium (34-66%) -Granulation Quality Flora -Slough/Fibrin Yes -Necrosis Amt Medium (34-66%) -Necrotic Tissue Type Adherent Slough -Structure Exposed N/A -Texture (Maria M-wound Skin Appearance) Assessed,Callus -Moisture (Maria M-wound Skin Appearance Assessed ) -Color (Maria M-wound Skin Appearance) Assessed -Temperature (Maria M-wound Skin No Abnormality Appearance) (Pt Warm) -Tenderness on Palpation (Maria M-wound No Skin Appearance) -Ulcer Cleansing Wound Cleanser -Foul Odor after Cleansing No -Anesthetic Used 4% Lidocaine Solution Musculoskeletal: No Tenderness to Palpation of Joints or Extremities, Muscle Wasting, - - Transmetatarsal amputation left Neurological: - - Lack of normal epicritic sensation is consistent with neuropathy Psych/Mental Status: Normal Affect, Appropriate Debridement Note Post-Debridement Measurements/Treatment WC - Nurse 2 - General Ulcer CM Notes Start: 07/26/20 11:27 Freq: Status: Active Protocol: Activity Type Activity Date Activity User E-Sign Co-Sign Detail Recorded Client Recorded Date Recorded By Document 07/26/20 11:53 [id number] 07/26/20 11:56 Document 08/02/20 10:13 [id number] 08/02/20 10:20 Document 08/09/20 11:32 [id number] 08/09/20 11:43 07/26/20 08/02/20 08/09/20 11:53 10:13 11:32 Wound Center Nurse 2 #9 right lateral plantar -Time 11:53 10:14 11:32 -Correct Patient Yes Yes Yes -Correct Side, Site, Position Yes Yes Yes -Correct Procedure Yes Yes Yes -Procedure Performed Yes Yes Yes -Type of Procedure Debridement Debridement Debridement -Clinical Debridement Subcutaneous Subcutaneous Subcutaneous -Tissue Removed Subcutaneous Subcutaneous Subcutaneous -Post Debridement (cm) - Length 2.2 1.8 2.2 -Post Debridement (cm) - Width 2.3 2.1 1.9 -Post Debridement (cm) - Depth 0.3 0.4 0.2 -Total Square (Post) (cm) 5.06 3.78 4.18 -Area of Debridement (cm) - Length 2.2 1.8 2.2 -Area of Debridement (cm) - Width 2.3 2.1 1.9 -Total Square (Area) (cm) 5.06 3.78 4.18 -Tunneling No No No -Undermining/Tunneling No No No -Circular Undermining No No No -Wound/Ulcer Outcome Not Healed Not Healed -Ulcer Cleansing Rinsed/ Rinsed/ Rinsed/ Irrigated with Irrigated with Irrigated with Saline Saline Saline -Foul Odor after Cleansing No No -Bioengineered Tissue No No No -Bleeding Controlled with Pressure Pressure Pressure -Offloading Yes Yes Yes -Type of Offloading Surgical Shoe Camwalker Surgical Shoe -Treatment Response Procedure Procedure Procedure Tolerated Well Tolerated Well Tolerated Well -Debridement - Subq, 1st 20sq cm No Yes No #3 right medial ankle -Time 11:54 10:15 11:33 -Correct Patient Yes Yes Yes -Correct Side, Site, Position Yes Yes Yes -Correct Procedure Yes Yes Yes -Procedure Performed Yes Yes Yes -Type of Procedure Debridement Debridement Debridement -Clinical Debridement Subcutaneous Subcutaneous Subcutaneous -Tissue Removed Subcutaneous Subcutaneous Subcutaneous -Post Debridement (cm) - Length 0.4 0.1 1.5 -Post Debridement (cm) - Width 0.2 0.3 0.9 -Post Debridement (cm) - Depth 0.1 0.1 0.1 -Total Square (Post) (cm) 0.08 0.03 1.35 -Area of Debridement (cm) - Length 0.4 0.1 1.5 -Area of Debridement (cm) - Width 0.2 0.3 0.9 -Total Square (Area) (cm) 0.08 0.03 1.35 -Tunneling No No No -Undermining/Tunneling No No No -Circular Undermining No No No -Wound/Ulcer Outcome Not Healed Not Healed Not Healed -Ulcer Cleansing Rinsed/ Rinsed/ Rinsed/ Irrigated with Irrigated with Irrigated with Saline Saline Saline -Foul Odor after Cleansing No No No -Bioengineered Tissue No No No -Bleeding Controlled with Pressure Pressure Pressure -Offloading No Yes Yes -Type of Offloading Camwalker Surgical Shoe -Treatment Response Procedure Procedure Procedure Tolerated Well Tolerated Well Tolerated Well -Debridement - Subq, 1st 20sq cm No No Yes #1 Left Plantar medial -Time 11:55 10:17 11:33 -Correct Patient Yes Yes Yes -Correct Side, Site, Position Yes Yes Yes -Correct Procedure Yes Yes -Procedure Performed Yes Yes Yes -Type of Procedure Debridement Debridement Debridement -Clinical Debridement Subcutaneous Subcutaneous Subcutaneous -Tissue Removed Subcutaneous Subcutaneous Subcutaneous -Post Debridement (cm) - Length 2.2 2.2 2.1 -Post Debridement (cm) - Width 2.4 2.0 1.8 -Post Debridement (cm) - Depth 0.2 0.3 0.2 -Total Square (Post) (cm) 5.28 4.40 3.78 -Area of Debridement (cm) - Length 2.1 2.2 2.1 -Area of Debridement (cm) - Width 2.4 2.0 1.8 -Total Square (Area) (cm) 5.04 4.40 3.78 -Tunneling No No No -Undermining/Tunneling No No No -Circular Undermining No No No -Wound/Ulcer Outcome Not Healed Not Healed Not Healed -Ulcer Cleansing Rinsed/ Rinsed/ Rinsed/ Irrigated with Irrigated with Irrigated with Saline Saline Saline -Foul Odor after Cleansing No No No -Bioengineered Tissue No Yes Yes -Type of Bioengineered Tissue Epifix Epifix -Expiration Date 03/22/25 03/22/25 -Product Lot Number [id number] -Percent Used 100 100 -Saline Lot Number [id number] -Bleeding Controlled with Pressure Pressure -Other saline [id number] saline [id number] exp date 02/2022 -Offloading Yes Yes Yes -Type of Offloading Surgical Shoe Total Contact Total Contact Cast (TCC) - Cast (TCC) - Left ($) Left ($) -Treatment Response Procedure Procedure Procedure Tolerated Well Tolerated Well Tolerated Well -Debridement - Subq, 1st 20sq cm Yes No No -Apply Skin Sub - 1st 25 sq cm - Feet 1 1 -Epifix (per sq cm) 4 4 Pain Scale: 0-10 Numeric Is Patient Pain Free? Yes Yes Yes WC - Nurse 3 - General Ulcer D/C NN Start: 07/26/20 11:27 Freq: Status: Active Protocol: Activity Type Activity Date Activity User E-Sign Co-Sign Detail Recorded Client Recorded Date Recorded By Document 07/26/20 12:13 DL [id number] 07/26/20 12:16 DL Document 08/02/20 10:22 KR [id number] 08/02/20 10:26 KR Document 08/09/20 11:59 KR [id number] 08/09/20 12:01 KR 07/26/20 08/02/20 08/09/20 12:13 10:22 11:59 Wound Care Nurse 3 #9 right lateral plantar -Ulcer Cleansing Wound Cleanser -Foul Odor after Cleansing No -Primary Dressing Applied Aquacel AG 4x4 Promogran Promogran Guru Matter Guru Matter -Primary Dressing Covered/Secured with Dry Gauze & Dry Gauze & Dry Gauze,Dry Roll Gauze, Roll Gauze, Gauze & Roll Secured with Secured with Gauze,Secured Tape Tape with Tape -Aquacel AG 4x4 1 -Promogran Guru Matter 1 1 #3 right medial ankle -Ulcer Cleansing Wound Cleanser -Foul Odor after Cleansing No -Other Dressing aquacel ag guru guru -Primary Dressing Covered/Secured with Dry Gauze & Dry Gauze & Dry Gauze,Dry Roll Gauze, Roll Gauze, Gauze & Roll Secured with Secured with Gauze,Secured Tape Tape with Tape #1 Left Plantar medial -Ulcer Cleansing Wound Cleanser -Foul Odor after Cleansing No -Other Dressing aqaucel ag primary layer primary layer TCC TCC applied -Primary Dressing Covered/Secured with Dry Gauze & Roll Gauze, Secured with Tape Treatment Response Procedure Procedure Procedure Tolerated Well Tolerated Well Tolerated Well Vital Signs Blood Pressure (90/60-120/80) 160/100 H 130/84 H Blood Pressure Mean (mm Hg) 120 99 Source Monitor Monitor Position Semi-Fowlers Sitting Blood Pressure Location Left Arm Left Arm Pain Scale: 0-10 Numeric Is Patient Pain Free? Yes Yes WC - Visit Discharge Discharge Condition Stable Stable Stable Ambulatory Status Ambulatory,Cane Ambulatory Ambulatory,Cane Transportation Private Auto Private Auto Private Auto Medication Reconcilliation completed & No No provided to patient/care provider Clinical Summary of Care Provided Yes Yes Notes: Pt to [facility] [place] at home. applied to LLE Wound debrided: plantar medial foot at amputation site Laterality: Left Wound Grade/Stage: grade 3 Type of Debridement: Excisional debridement Anesthesia Used: 5% Lidocaine Gel Depth: in the subcutaneous layer Percentage of wound debrided: 100 Instrument Used: #15 blade Tissue Removed: fibrous, devitalized subcutaneous, biofilm, slough Severity: Fat Layer Exposed Amount of bleeding with debridement: Mild Bleeding Controlled with: Pressure Patient tolerated procedure well - Additional Wound Wound debrided: sub 5th metatarsal head Laterality: Right Wound Grade/Stage: grade 2 Type of Debridement: Excisional debridement Anesthesia Used: 5% Lidocaine Gel Depth: in the subcutaneous layer Percentage of wound debrided: 100 Instrument Used: #15 blade Tissue Removed: fibrous, devitalized subcutaneous, biofilm, slough Severity: Fat Layer Exposed Amount of bleeding with debridement: Mild Bleeding Controlled with: Pressure Patient tolerated procedure: Patient tolerated procedure well Assessment/Plan Active Problems (Last Reviewed 07/31/20 @ 11:[address] Juan Arteaga MD) Ulcer of left foot with muscle involvement without evidence of necrosis (Chronic) Chronic ulcer of right foot with fat layer exposed (Chronic) Tobacco abuse counseling (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) Assessment: Left plantar medial foot ulcer, [place] Grade 3 -stable. right foot ulcers include medial ankle, healed. Right foot ulcer subfifth metatarsal head work status now with exposed healthy-appearing tendon, Manc[place] grade 2. Injury right foot, work-up in process. Morbid obesity. Diabetes type 2 with complications. 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 Subcutaneous excisional debridement was performed as noted in the clinical panel to the left foot and right foot. His ulcer status has improved left and has worsened right. There is no longer any tendon exposed today on the left foot. There is no tendon exposed on the right foot. To change right foot ulcer sites daily with Gynes[employer]ics which he reports he has at home. Reapplication of epifix is recommended to the left foot. This was applied according to standard protocol after verbal consent was obtained. He understands the benefits and indications of this product. This was secured in place with Steri-Strips and he tolerated this well, left foot. A well-padded total contact cast in neutral position was applied to the left lower extremity after verbal consent was obtained. He tolerated this well. To keep clean dry and intact. He was also reassured he do not see any new injuries or infections on the right lower extremity. I would like to apply advanced wound healing product to the right foot as well however he is currently not covered under his insurance for this time. I will investigate to see if he can get approved for contralateral limb application as well. Additional prior authorization process will be started again. This is medically necessary for limb salvage. Due to his worsening status on the right foot I recommend an updated x-ray. An order for right foot and left foot x-rays were ordered due to chronicity of the ulcers and his recent reported right foot injury from about 2 weeks ago. He relates he is unable to get these today but will try to get them completed prior to his follow-up visit next week. He was also reassured no local signs of infection are noted however there is concern of deeper bone and tendon infection in the future due to the chronicity of this ulcer. He will monitor for signs of infection locally and systemically. I discussed other offloading techniques such as using a walker or a knee roller for the left limb. His noninvasive vascular studies were reviewed from which were normal and intervention was previously not recommended. I advised him to follow-up with all of Dr. Bonilla's recommendations to optimize his healing process. He has for help scheduling this because he has not been able to do this. He has recently been seen and intervention is planned for arterial optimization. An updated bilateral duplex was also recommended to help with planning. He had an updated left foot x-ray which did not demonstrate any new progressive osseous destruction, soft tissue emphysema, fracture, dislocation, or foreign body. I previously recommend that he sees infectious disease because he is very high risk and input is greatly appreciated. He had recent multi-organism culture (MRSA, E facealis, klebs, strep, corynebacterium) results and cellulitis clinical signs to the right foot. This has resolved and there are no clinical or systemic signs of infection noted today. 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 He completed a course of hyperbaric oxygen therapy and this has helped. Additional coverage is not confirmed with his insurance. He will proceed at this time without additional sessions. To continue to work on decreasing glucose levels. He has a history of hyperglycemia. To continue follow-up with primary care physician. To continue to follow-up with nutritional services. To continue to follow-up as advised. He is currently making adjustments with his eating habits. He also follows up with materials research engineer, Dr. Arteaga who is working with him to reduce his hemoglobin A1c with medication and behavioral changes. Smoking cessation was discussed in detail and he was advised on the healing impairment associated with this. To continue with his smoking cessation program. I also recommend discontinuation of nicotine products for this also contributes to small vessel contraction. I answered all of his questions today. To return to clinic in 1 week or call sooner if questions, concerns, or progressive worsening.
== END 2020-08-21 23:59 ==
LOC: WC 08:45
PROVIDERS: PCP Family Medicine Geriatric Medicine; Referring Provider Family Medicine; Visit Provider Family Medicine
DX: E11.621 Type 2 diabetes mellitus with foot ulcer (principal); L97.525 Non-pressure chronic ulcer of other part of left foot with muscle involvement without evidence of necrosis; L97.513 Non-pressure chronic ulcer of other part of right foot with necrosis of muscle; L03.115 Cellulitis of right lower limb; E66.01 Morbid (severe) obesity due to excess calories; A49.02 Methicillin resistant Staphylococcus aureus infection, unspecified site; E11.42 Type 2 diabetes mellitus with diabetic polyneuropathy; Z71.6 Tobacco abuse counseling
CPT/HCPCS: 11042; 15271; 15275; 29445; Q4186

== ENCOUNTER → 2020-08-21 12:12 | Outpatient (CLI) | payer MEDICARE, SELFPAY ==
[2020-08-16 08:38] VITALS: BMI 42.8
--- NOTE | 2020-08-21 12:16 | RAD_ITS ---
STUDY: X-RAY - LEFT FOOT CLINICAL: Diabetic ulcer, partial amputation. TECHNIQUE: 3 view(s) of the foot. COMPARISON: Radiographs 04/26/2020. FINDINGS: There is a plantar calcaneal enthesophyte. There is no evidence of active bone destruction of the tarsal bones of the hindfoot or midfoot. Normal visualized subtalar, talonavicular, calcaneocuboid, tarsal and tarsometatarsal articulations. There is transmetatarsal amputation of the first through fifth proximal metatarsal diaphyses without evidence of active bone destruction. There is soft tissue swelling at the amputation stump. RAD/Foot min 3 Views IMPRESSION: Metatarsal amputations without demonstrated active bone destruction. Electronically Signed: Bebeto Lynn MD at 13:40 EST Tel , Service support ,
--- NOTE | 2020-08-21 12:16 | RAD_ITS ---
STUDY: X-RAY - RIGHT FOOT CLINICAL: Right foot pain, ulcer. TECHNIQUE: 3 view(s) of the foot. COMPARISON: Radiographs 06/07/2020. FINDINGS: There are posterior and plantar calcaneal enthesophytes. There is orthopedic hardware in the distal fibula and medial malleolus. Normal visualized subtalar, talonavicular, calcaneocuboid, tarsal and tarsometatarsal articulations. Normal metatarsi. Normal metatarsophalangeal joint of the great toe. Normal tibial and fibular sesamoid bones. Normal interphalangeal joint of the great toe. Normal phalanges of the great toe. Normal second through fifth metatarsophalangeal joints. There is a questionable subtle nondisplaced fracture of the proximal metaphysis of the fifth proximal phalanx. There is soft tissue swelling at the lateral aspect of the forefoot. RAD/Foot min 3 Views IMPRESSION: Questionable subtle nondisplaced fracture of the proximal metaphysis of the fifth proximal phalanx. No demonstrated active bone destruction. Electronically Signed: Bebeto Lynn MD at 14:16 EST Tel , Service support ,
== END ==
PROVIDERS: PCP Family Medicine Geriatric Medicine; Referring Provider Podiatrist; Visit Provider Podiatrist
DX: L97.513 Non-pressure chronic ulcer of other part of right foot with necrosis of muscle (principal); M86.9 Osteomyelitis, unspecified
CPT/HCPCS: 73630

== ENCOUNTER 2020-08-23 10:00 | Outpatient (RCR) | payer MEDICARE, SELFPAY ==
[2020-08-22 00:22] VITALS: BP 144/78; PULSE 91; RESP 18; TEMP 37
--- NOTE | 2020-08-22 12:21 | WC ---
Anaid from [facility] called concerned that patient's toes on his right foot are swollen and there's some redness from his foot to his leg. Now warmth or drainage. He is experiencing some pain from the knee to the foot. Spoke to Dr Claudio about this , patient's xray results has not been read. Patient has an appt tomorrow at 10am. Patient has been explained that if his pain worsens before his appt, he is to report to the ER for evaluation. Spoke to Ed about this and her verbalized understanding.
[2020-08-23 10:01] VITALS: BP 155/63; PULSE 99; RESP 20; TEMP 36.6; BMI 42.8
--- NOTE | 2020-08-23 11:32 | PN.PCM_ITS ---
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 Status: Chronic Code(s): L97.513 - Non-pressure chronic ulcer of other part of right foot with necrosis of muscle Comment: no necrosis clarified (2) Ulcer of left foot with necrosis of muscle Status: Chronic Code(s): L97.523 - Non-pressure chronic ulcer of other part of left foot with necrosis of muscle (3) Polyneuropathy due to type 2 diabetes mellitus Status: Chronic Code(s): E11.42 - Type 2 diabetes mellitus with diabetic polyneuropathy (4) Diabetic neuropathy Status: Chronic Qualifiers: Code(s): E11.40 - Type 2 diabetes mellitus with diabetic neuropathy, unspecified (5) Type 2 diabetes mellitus with diabetic polyneuropathy Status: Chronic Qualifiers: Code(s): E11.42 - Type 2 diabetes mellitus with diabetic polyneuropathy (6) Muscle strain of right lower extremity Status: Acute Qualifiers: Encounter type: initial encounter Qualified Code(s): S86.911A - Strain of unspecified muscle(s) and tendon(s) at lower leg level, right leg, initial encounter Code(s): S86.911A - Strain of unspecified muscle(s) and tendon(s) at lower leg level, right leg, initial encounter Type of Wound Date of Service: 08/23/20 Chief Complaint: Diabetic left foot ulceration, [place] Grade 3, with infection. Right foot ulcer History of Wound: This 65-year-old male with multiple comorbidities was seen today for left foot ulcer. His left foot ulcer onset was 12-07-2019. He is previously known to me and had a left transmetatarsal amputation performed previously. He denies diarrhea, rash, fever, chill, nausea, vomiting. He completed hyperbaric oxygen therapy sessions. He denies redness or odor. He kept his total contact cast intact last week to the left lower extremity. He continues to walk in his regular shoe although this is not going to allow healing. He had called into the foot and ankle center and wound care center a couple of days ago complaining of right lower extremity pain and swelling after he had a very difficult time getting into and out of the transportation van to get his updated foot x-rays. He relates after resting last night the swelling and pain have significantly resolved. He denies chest pain shortness of breath, redness, odor, or new drainage. He denies calf pain. He did relate some radiating symptoms that seem to be shooting down the back of his leg also. Progress of Wound: Stable right. left improving - Physical Exam Vital Signs Temp Pulse Resp BP 97.8 F 99 20 H 155/63 H 08/23/20 10:01 08/23/20 10:01 08/23/20 10:01 08/23/20 10:01 General: Alert, Oriented x3, Cooperative, No apparent distress Extremities: No cyanosis, Capillary Refill Less than 3 Seconds, No Calf Tenderness, Diminished Peripheral Pulses, Edema - No increased edema to the right or left lower extremity. Skin: Ulcer/ Wound - No purulence, erythema, streaking, odor, infection bilateral. Continued peripheral callus is noted to the ulcer sites. His skin is atrophic., - - The right lower extremity does not demonstrate any for lower, notable edema, or redness. The compartments remain soft. Wound Measurements and Assessment WC - Nurse 1 - General Ulcer Measurement Start: 08/23/20 10:01 Freq: Status: Active Protocol: Activity Type Activity Date Activity User E-Sign Co-Sign Detail Recorded Client Recorded Date Recorded By Document 08/23/20 10:01 DL [id number] 08/23/20 10:32 DL 08/23/20 10:01 Wound Center Nurse 1 [Ulcer Assessment] #9 right lateral plantar -Current Size (cm) - Length 1.8 -Current Size (cm) - Width 2 -Current Size (cm) - Depth 0.7 -Total Square Cm 3.6 -Photo Taken No -Undermining/Tunneling Starts (O' 7 clock) -Undermining/Tunneling Ends (O'clock) 2 -Maximum Distance (cm) 0.8 -Exudate Amt Medium -Exudate Type Serosanguineous -Wound Margin Thickened -Granulation Amt Medium (34-66%) -Granulation Quality [place] -Necrosis Amt Medium (34-66%) -Necrotic Tissue Type Adherent Slough -Structure Exposed N/A -Texture (Maria M-wound Skin Appearance) Callus,Scarring -Moisture (Maria M-wound Skin Appearance Maceration ) -Color (Maria M-wound Skin Appearance) Hemosiderin Staining -Temperature (Maria M-wound Skin No Abnormality Appearance) (Pt Warm) -Tenderness on Palpation (Maria M-wound No Skin Appearance) -Ulcer Cleansing Wound Cleanser -Foul Odor after Cleansing No -Anesthetic Used 4% Lidocaine Solution #3 right medial ankle -Current Size (cm) - Length 0.1 -Current Size (cm) - Width 0.1 -Current Size (cm) - Depth 0.1 -Total Square Cm 0.01 -Photo Taken No -Exudate Amt None Present -Wound Margin Flat & Intact -Granulation Amt Large (67-100%) -Granulation Quality [place] -Necrosis Amt None Present (0 %) -Structure Exposed N/A -Texture (Maria M-wound Skin Appearance) Scarring -Moisture (Maria M-wound Skin Appearance No Abnormality ) -Color (Maria M-wound Skin Appearance) Hemosiderin Staining -Temperature (Maria M-wound Skin No Abnormality Appearance) (Pt Warm) -Tenderness on Palpation (Maria M-wound No Skin Appearance) -Ulcer Cleansing Wound Cleanser -Foul Odor after Cleansing No -Anesthetic Used 4% Lidocaine Solution #1 Left Plantar medial -Current Size (cm) - Length 1.9 -Current Size (cm) - Width 2 -Current Size (cm) - Depth 0.2 -Total Square Cm 3.8 -Exudate Amt Medium -Exudate Type Serosanguineous -Wound Margin Thickened -Granulation Amt Large (67-100%) -Granulation Quality Red -Necrosis Amt Small (1-33%) -Necrotic Tissue Type Adherent Slough -Structure Exposed N/A -Texture (Maria M-wound Skin Appearance) Callus,Scarring -Moisture (Maria M-wound Skin Appearance Maceration ) -Color (Maria M-wound Skin Appearance) Hemosiderin Staining -Temperature (Maria M-wound Skin No Abnormality Appearance) (Pt Warm) -Tenderness on Palpation (Maria M-wound No Skin Appearance) -Ulcer Cleansing Wound Cleanser -Foul Odor after Cleansing No -Anesthetic Used 4% Lidocaine Solution [Edema Assessment] -Right Calf (cm) 45.5 -Right Ankle (cm) 26.5 -Left Calf (cm) 45 -Left Ankle (cm) 26.7 WC - Nurse 2 - General Ulcer CM Notes Start: 08/23/20 10:01 Freq: Status: Active Protocol: Activity Type Activity Date Activity User E-Sign Co-Sign Detail Recorded Client Recorded Date Recorded By Document 08/23/20 10:39 CASSY [id number] 08/23/20 10:51 CASSY 08/23/20 10:39 Wound Center Nurse 2 [Procedure/Treatment] #9 right lateral plantar -Time 10:45 -Correct Patient Yes -Correct Side, Site, Position Yes -Correct Procedure Yes -Procedure Performed Yes -Type of Procedure Debridement -Clinical Debridement Subcutaneous -Tissue Removed Subcutaneous -Post Debridement (cm) - Length 2 -Post Debridement (cm) - Width 2 -Post Debridement (cm) - Depth 0.7 -Total Square (Post) (cm) 4 -Area of Debridement (cm) - Length 2 -Area of Debridement (cm) - Width 2 -Total Square (Area) (cm) 4 -Tunneling No -Undermining/Tunneling No -Circular Undermining No -Wound/Ulcer Outcome Not Healed -Ulcer Cleansing Rinsed/ Irrigated with Saline -Foul Odor after Cleansing No -Bioengineered Tissue Yes -Type of Bioengineered Tissue Epifix Mesh -Expiration Date 05/23/25 -Product Lot Number [id number] -Percent Used 100 -Other [id number] -Offloading Yes -Type of Offloading Surgical Shoe -Treatment Response Procedure Tolerated Well -Debridement - Subq, 1st 20sq cm No -Apply Skin Sub - 1st 25 sq cm - Feet 1 -Epifix Mesh (per sq cm) 11 #3 right medial ankle -Correct Patient No -Correct Side, Site, Position No -Correct Procedure No -Procedure Performed No -Post Debridement (cm) - Length 0 -Post Debridement (cm) - Width 0 -Post Debridement (cm) - Depth 0 -Total Square (Post) (cm) 0 -Area of Debridement (cm) - Length 0 -Area of Debridement (cm) - Width 0 -Total Square (Area) (cm) 0 -Wound/Ulcer Outcome Healed- Epithelialized #1 Left Plantar medial -Time 10:49 -Correct Patient Yes -Correct Side, Site, Position Yes -Correct Procedure Yes -Procedure Performed Yes -Type of Procedure Debridement -Clinical Debridement Subcutaneous -Tissue Removed Subcutaneous -Post Debridement (cm) - Length 2 -Post Debridement (cm) - Width 2 -Post Debridement (cm) - Depth 0.2 -Total Square (Post) (cm) 4 -Area of Debridement (cm) - Length 2 -Area of Debridement (cm) - Width 2 -Total Square (Area) (cm) 4 -Tunneling No -Undermining/Tunneling No -Circular Undermining No -Wound/Ulcer Outcome Not Healed -Ulcer Cleansing Rinsed/ Irrigated with Saline -Foul Odor after Cleansing No -Bioengineered Tissue No -Bleeding Controlled with Pressure -Offloading Yes -Type of Offloading Total Contact Cast (TCC) - Left ($) -Debridement - Subq, 1st 20sq cm Yes [See Physician Procedure note for Specifics] Pain Scale: 0-10 Numeric [Pain] -Is Patient Pain Free? Yes Musculoskeletal: Muscle Wasting, - - Left transmetatarsal amputation. No pain with ulcer manipulation. Negative Ernie and Rangel sign bilateral Neurological: - - Lack of normal epicritic sensation light touch Psych/Mental Status: Normal Affect, Appropriate Debridement Note Post-Debridement Measurements/Treatment WC - Nurse 2 - General Ulcer CM Notes Start: 08/23/20 10:01 Freq: Status: Active Protocol: Activity Type Activity Date Activity User E-Sign Co-Sign Detail Recorded Client Recorded Date Recorded By Document 08/23/20 10:39 CASSY [id number] 08/23/20 10:51 CASSY 08/23/20 10:39 Wound Center Nurse 2 #9 right lateral plantar -Time 10:45 -Correct Patient Yes -Correct Side, Site, Position Yes -Correct Procedure Yes -Procedure Performed Yes -Type of Procedure Debridement -Clinical Debridement Subcutaneous -Tissue Removed Subcutaneous -Post Debridement (cm) - Length 2 -Post Debridement (cm) - Width 2 -Post Debridement (cm) - Depth 0.7 -Total Square (Post) (cm) 4 -Area of Debridement (cm) - Length 2 -Area of Debridement (cm) - Width 2 -Total Square (Area) (cm) 4 -Tunneling No -Undermining/Tunneling No -Circular Undermining No -Wound/Ulcer Outcome Not Healed -Ulcer Cleansing Rinsed/ Irrigated with Saline -Foul Odor after Cleansing No -Bioengineered Tissue Yes -Type of Bioengineered Tissue Epifix Mesh -Expiration Date 05/23/25 -Product Lot Number [id number] -Percent Used 100 -Other [id number] -Offloading Yes -Type of Offloading Surgical Shoe -Treatment Response Procedure Tolerated Well -Debridement - Subq, 1st 20sq cm No -Apply Skin Sub - 1st 25 sq cm - Feet 1 -Epifix Mesh (per sq cm) 11 #3 right medial ankle -Correct Patient No -Correct Side, Site, Position No -Correct Procedure No -Procedure Performed No -Post Debridement (cm) - Length 0 -Post Debridement (cm) - Width 0 -Post Debridement (cm) - Depth 0 -Total Square (Post) (cm) 0 -Area of Debridement (cm) - Length 0 -Area of Debridement (cm) - Width 0 -Total Square (Area) (cm) 0 -Wound/Ulcer Outcome Healed- Epithelialized #1 Left Plantar medial -Time 10:49 -Correct Patient Yes -Correct Side, Site, Position Yes -Correct Procedure Yes -Procedure Performed Yes -Type of Procedure Debridement -Clinical Debridement Subcutaneous -Tissue Removed Subcutaneous -Post Debridement (cm) - Length 2 -Post Debridement (cm) - Width 2 -Post Debridement (cm) - Depth 0.2 -Total Square (Post) (cm) 4 -Area of Debridement (cm) - Length 2 -Area of Debridement (cm) - Width 2 -Total Square (Area) (cm) 4 -Tunneling No -Undermining/Tunneling No -Circular Undermining No -Wound/Ulcer Outcome Not Healed -Ulcer Cleansing Rinsed/ Irrigated with Saline -Foul Odor after Cleansing No -Bioengineered Tissue No -Bleeding Controlled with Pressure -Offloading Yes -Type of Offloading Total Contact Cast (TCC) - Left ($) -Debridement - Subq, 1st 20sq cm Yes Pain Scale: 0-10 Numeric Is Patient Pain Free? Yes Wound debrided: sub 5th metatarsal head ulcer Laterality: Right Wound Grade/Stage: grade 1 Type of Debridement: Excisional debridement Anesthesia Used: 5% Lidocaine Gel Depth: in the subcutaneous layer Percentage of wound debrided: 100 Instrument Used: #15 blade Tissue Removed: fibrous, devitalized subcutaneous, biofilm, slough Severity: Fat Layer Exposed Amount of bleeding with debridement: Mild Bleeding Controlled with: Pressure Patient tolerated procedure well - Additional Wound Wound debrided: plantar medial foot Laterality: Left Wound Grade/Stage: grade 3 Type of Debridement: Excisional debridement Anesthesia Used: 5% Lidocaine Gel Depth: in the subcutaneous layer Percentage of wound debrided: 100 Instrument Used: #15 blade Tissue Removed: fibrous, devitalized subcutaneous, biofilm, slough Severity: Fat Layer Exposed Amount of bleeding with debridement: Mild Bleeding Controlled with: Pressure Patient tolerated procedure: Patient tolerated procedure well Assessment/Plan Active Problems (Last Reviewed 07/31/20 @ 11:[address] 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 right foot ulcers include medial ankle, healed. Right foot ulcer subfifth metatarsal head work status now with exposed healthy-appearing tendon, [place] grade 2. Injury right leg, work-up in process; muscle strain suspected. Morbid obesity. Diabetes type 2 with complications Plan: I reviewed and discussed his case. Subcutaneous excisional debridement was performed as noted in the clinical panel to the left foot and right foot. His ulcer status has improved left and has worsened right. There is no longer any tendon exposed today on the left foot. There is newer tendon exposed on the right foot. He was approved for application of advanced wound healing product, epifix for the right foot. Verbal consent was obtained and this was applied according standard protocol. This was secured with a wound veil and Steri- Strips. A basic primary dressing was also applied to the left foot and was further prepped for total contact cast application which was additionally applied according to standard protocol in a rectus well-padded manner. He tolerated this well. It is noted in medial right ankle and foot ulcer site is fully epithelialized and healed. He understands the benefits and indications of this advanced epifix product. To keep bilateral lower extremities clean dry and intact. I reviewed his diagnostic data from last week including bilateral foot x-rays which did not demonstrate any new fractures, dislocation, soft tissue emphysema, osseous destruction or deterioration adjacent to the ulcer sites. I discussed other offloading techniques such as using a walker or a knee roller for the left limb. His noninvasive vascular studies were reviewed from which were normal and intervention was previously not recommended. I adv ised him to follow-up with all of Dr. Bonilla's recommendations to optimize his healing process. He has for help scheduling this because he has not been able to do this. He has recently been seen and intervention is planned for arterial optimization. An updated bilateral duplex was also recommended to help with planning. To continue to work on decreasing glucose levels. He has a history of hyperglycemia. To continue follow-up with primary care physician. To continue to follow-up with nutritional services. To continue to follow-up as advised. He is currently making adjustments with his eating habits. He also follows up with check writer, Dr. Arteaga who is working with him to reduce his hemoglobin A1c with medication and behavioral changes. Smoking cessation was discussed in detail and he was advised on the healing impairment associated with this. To continue with his smoking cessation program. I also recommend discontinuation of nicotine products for this also contributes to small vessel contraction. I answered all of his questions today. We also discussed his right lower limb complaints and he was screened for signs of critical limb ischemia, deep venous thrombosis or infection in which he is not suspect at this time. Due to his mechanical difficulty entering and exiting the bands and pain immediately after this activity I am suspecting a muscle strain of some sort. It is also possible that he irritated the nerve or his lower back due to his radiating symptoms. He says he doing much better at this time and will monitor for return or other more concerning signs. To return to clinic in 1 week or call sooner if questions, concerns, or progressive worsening.
[2020-08-23 11:45] VITALS: BP 155/64
--- NOTE | 2020-08-25 13:54 | WC ---
Received a call from [facility] home [facility]. Stated Patient said he forgot he had an epifix skin sub on his right plantar and removed it and showered. Home health nurse re-dressed with aquacel extra and gauze. Stated they will see him every other day to dress with aquacel extra until next wound center appt next week. Stated right foot/pinky toe still red and warm to touch but she feels it looks the same as it did on friday and isn't any worse. Instructed for patient to go to ER if worsens over weekend. Updated Kendal Patel RN case manager.
== END 2020-09-21 23:59 ==
LOC: WC 10:00
PROVIDERS: PCP Family Medicine Geriatric Medicine; Referring Provider Family Medicine; Visit Provider Podiatrist
DX: E11.621 Type 2 diabetes mellitus with foot ulcer (principal); L97.513 Non-pressure chronic ulcer of other part of right foot with necrosis of muscle; L97.523 Non-pressure chronic ulcer of other part of left foot with necrosis of muscle; E11.42 Type 2 diabetes mellitus with diabetic polyneuropathy; S86.911A Strain of unspecified muscle(s) and tendon(s) at lower leg level, right leg, initial encounter; E66.01 Morbid (severe) obesity due to excess calories
CPT/HCPCS: 11042; 15275; 29445; Q4186

== ENCOUNTER 2020-08-28 16:56 | Inpatient (IN) | payer MEDICARE, MEDICAID, SELFPAY ==
--- NOTE | 2020-08-28 16:55 | HP.PCM_ITS ---
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 He is well-known at the wound care center. He relates his pain and odor started on Friday however he decided to wait until today to contact us about this. He denies injury. He admits he has been walking on his wound in his shoe. He denies fever, chill, nausea, vomiting. He does report loss of appetite and tenderness to the foot and leg even though he has neuropathic. Home health has been helping him with dressing changes and also reported a worsening status over the weekend. Past Medical History Past Medical History (Chronic Problems): Chronic Problems (Last Reviewed 07/31/20 @ 11:[address] 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 (Chronic) no necrosis clarified Ulcer of right lower extremity with fat layer exposed (Chronic) MRSA (methicillin resistant staph aureus) culture positive (Chronic) Ulcer of left foot with muscle involvement without evidence of necrosis (Chronic) Ulcer of left foot with necrosis of muscle (Chronic) History of transmetatarsal amputation of left foot (Chronic) Ulcer of right foot with fat layer exposed (Chronic) Chronic ulcer of right foot with fat layer exposed (Chronic) Obesity (Chronic) Tobacco abuse (Chronic) Osteomyelitis, unspecified (Chronic) Chronic ulcer of left foot with fat layer exposed (Chronic) Osteomyelitis of left foot (Chronic) Diabetic ulcer of left foot (Chronic) Other specified peripheral vascular diseases (Chronic) Delayed wound healing (Chronic) Difficulty in walking, not elsewhere classified (Chronic) 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) Tobacco abuse counseling (Chronic) Mixed hyperlipidemia (Chronic) Benign essential hypertension (Chronic) 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) Diabetes (Chronic) Type 2 diabetes mellitus (Chronic) Obstructive sleep apnea (Chronic) Uncontrolled diabetes mellitus (Chronic) Diabetic infection of left foot (Chronic) Osteomyelitis of great toe of left foot (Chronic) Morbid obesity due to excess calories (Chronic) Tobacco dependence due to cigarettes (Chronic) Diabetic neuropathy (Chronic) Hypertension (Chronic) 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) Medical History: Medical History (Last Updated 08/28/20 @ 17:[address] Irene lCaudio, DPM) BPH (benign prostatic hyperplasia) N40.0 Erectile dysfunction N52.9 Hyperlipidemia E78.5 Hypokalemia E87.6 Neuropathic pain M79.2 Obesity E66.9 Sleep apnea G47.30 Tobacco abuse Z72.0 Type 2 diabetes mellitus E11.9 HTN (hypertension) I10 Allergies Sulfa (Sulfonamide Antibiotics) Allergy (Verified 07/28/20 14:16) Rash Home Medications: Ambulatory Orders Medication Instructions Recorded Calcium Carbonate [Calcium] 500 mg PO DAILY 06/23/17 Multivitamin [Multiple Vitamins] 1 ea PO DAILY 06/23/17 atorvastatin 40 mg tablet 40 mg PO DAILY 10/18/19 bupropion HCl 150 mg 24 hr tablet, 150 mg PO BID tab 10/18/19 extended release tamsulosin 0.4 mg capsule 0.4 mg PO DAILY@1730 cap 10/18/19 blood sugar diagnostic See Rx Instructions .ROUTE 10/28/19 .MEDSUPPLY #100 ea lancets 33 gauge See Rx Instructions .ROUTE 10/28/19 .MEDSUPPLY #100 ea gabapentin 300 mg capsule 600 mg PO TIDCM cap 04/24/20 aspirin 81 mg tablet,delayed 81 mg PO DAILY tab 07/28/20 release insulin regular hum U-500 conc 150 unit SC TID ml 07/28/20 lisinopril 40 mg tablet 40 mg PO DAILY #90 tab 07/31/20 Insulin Lispro [Humalog KwikPen] 160 units SQ LUNCH 08/28/20 Insulin U-500 [Humulin R U-500 140 units SQ DINNER 08/28/20 ([facility])] Surgical History: Surgical History (Last Reviewed 07/31/20 @ 11:[address] Juan Arteaga MD) History of ankle surgery Z98.890 History of deviated nasal septum Z87.09 History of hernia repair Z98.890, Z87.19 History of oral surgery Z98.890 History of transmetatarsal amputation of left foot Z89.432 History of vasectomy Z98.52 Surgical History: - - Surgery to the right ankle for fracture, left foot transmetatarsal amputation Psychiatric History: No pertinent psych hx Smoking Status: Heavy Smoker (>10/day) - *Family History Maternal Family History: Family History (Last Reviewed 07/31/20 @ 11:[address] Juan Arteaga MD) Father Myocardial infarction Heart disease Mother Kidney disease Diabetes Sister Asthma Breast cancer Hypertension Brother Alcoholism Melanoma History Items: Diabetes, Renal Disease - on dialysis Paternal Family History: Family History (Last Reviewed 07/31/20 @ 11:[address] Juan Arteaga MD) Father Myocardial infarction Heart disease Mother Kidney disease Diabetes Sister Asthma Breast cancer Hypertension Brother Alcoholism Melanoma History Items: Heart Disease Sibling Family History: Family History (Last Reviewed 07/31/20 @ 11:[address] Juan Arteaga MD) Father Myocardial infarction Heart disease Mother Kidney disease Diabetes Sister Asthma Breast cancer Hypertension Brother Alcoholism Melanoma History Items: Cancer - breast cancer in his sister Review of Systems Constitutional: Denies: Chills, Fever Cardiovascular: Denies: Chest Pain, Claudication Respiratory: Denies: Cough Gastrointestinal: Denies: Nausea, Vomiting Musculoskeletal: Reports: Foot Pain, Leg Pain Skin: Reports: Skin Changes, Wounds Neurological: Reports: Balance problems, Incoordination, Numbness, Tingling Psychiatric: Reports: Depression VTE Information - Inpt Only VTE Present on Admission: No VTE Pharm Prophylaxis ordered?: Yes Reason prophylaxis not ordered:: Treatment Not Indicated - will hold until after surgery Patient Problems: Active and Suspected Problems (Last Reviewed 07/31/20 @ 11:[address] Juan Arteaga MD) Cellulitis of right lower limb (Acute) Osteomyelitis of right foot (Suspected) - Physical Exam Vitals/I&O's: Body Mass Index (BMI) 42.8 Finger Stick Blood Glucose 137 General: Alert, Oriented x3, Cooperative HEENT: Atraumatic Oral: Moist Mucosa Extremities: No cyanosis, Capillary Refill Less than 3 Seconds - All digits right foot, Diminished Peripheral Pulses, Edema - Right lower extremity, Tenderness - Tenderness to palpate plantar arch, medial and posterior leg Skin: Ulcer/ Wound - Skin discontinuity subfifth metatarsal head right with increased size and new exposed bone and necrotic peripheral macerated tissue. Pronounced odor is noted. There is no purulence on expression. There is erythema and edema adjacent to the ulcer site., - - He also has dry stable excoriations to the lower extremity Musculoskeletal: Muscle Wasting, Tenderness - Pain to palpate ulcer site, - - Left lower extremity transmetatarsal amputation with total contact cast intact Neurological: - - Lack of normal epicritic sensation is consistent with his neuropathy status however he does have pain not to the infected ulcer site Psych/Mental Status: Normal Affect, Appropriate Assessment/Plan All Active Problems (Last Reviewed 07/31/20 @ 11:[address] Juan Arteaga MD) Injury of right foot (Acute) Muscle strain of right lower extremity (Acute) Cellulitis of right lower limb (Acute) Maceration of periwound skin (Acute) Left ankle pain (Acute) Osteomyelitis of left foot (Resolved) Cellulitis of left lower limb (Acute) Cellulitis of right foot (Resolved) Colonization status (Acute) Cerumen impaction (Acute) Other acquired deformities of left foot (Acute) Foot abscess, left (Acute) Foot abscess, left (Acute) DEAN (acute kidney injury) (Acute) Severe sepsis (Acute) Elevated troponin (Acute) Dehydration (Acute) Diabetic hyperosmolar non-ketotic state (Acute) Right foot infection Osteomyelitis fifth metatarsal is suspected Uncontrolled diabetes with neuropathy Other comorbidities include tobacco abuse, obesity, sleep apnea, hyperlipidemia, hypertension, prior stage II kidney disease, BPH I reviewed and discussed his case in clinic today at the foot and ankle center. He has an infected ulcer at this time with concern of osteomyelitis. His infection erythema and inflammatory changes extend well beyond 2 cm periulcer and admission for IV antibiotics and surgical intervention is recommended. X- rays (3 views, AP, lateral, oblique) were reviewed at the foot and ankle center without acute fracture dislocation. There is some rarefraction and irregular trabecular pattern to the fifth metatarsal head. There is no soft tissue emphysema or foreign body. A deep wound culture was obtained for aerobic, anaerobic, MRSA PCR post debridement. The excisional subcutaneous and muscle debridement was performed after verbal consent with a 15 blade scalpel to remove devitalized tissue, biofilm, slough, fibrous tissue. Pressure was applied to maintain hemostasis and he tolerated this. Betadine wet to dry dressing was applied. He was advised to keep weight off of this site. It is noted he is walking with a regular shoe on today. Broad-spectrum antibiotics were initiated including vancomycin and Zosyn. I recommend infectious disease consultation. MRI will be ordered as well to evaluate for additional abscess or the extent of the suspected osteomyelitis. He understand surgical intervention most likely will include 5th metatarsal head resection or fifth ray resection potentially more pending his MRI results and his response overnight. Labs are ordered including CBC, CMP, ESR, C-reactive protein, lactic acid, and EKG for preoperative assessment. Hospitalist will be consulted for medical management and care will be greatly appreciated including diabetes management, medication review, and IV fluid recommendations. The case was discussed with Dr. Linder. This patient was also seen with Dr. Powell who is the on-call podiatric physician at this time and will be involved with his care plan while in house. Please not hesitate to call if you have any questions. Irene Claudio DPM, F[facility] [phone]
[2020-08-28 17:01] VITALS: BMI 46.9
--- NOTE | 2020-08-28 17:23 | MRI_ITS ---
STUDY: MRI RIGHT FOREFOOT WITH AND WITHOUT CONTRAST REASON FOR EXAM: Male, 65 years old. rt forefoot ulcer 5TH mt,, ?osteo, odor, debridement today, surgery 08/29/20 TECHNIQUE: Standardized fat and water weighted pulse sequences were obtained in all 3 orthogonal planes, post contrast administration. IV dotarem 30ml was administered for the contrast portion of the examination. COMPARISON: Right foot x-ray dated August 21, 2020 FINDINGS: Mild diffuse subcutaneous edema is present. No discrete fluid collections are seen. Diffuse edema is present in the head of the fifth metatarsal bone, throughout the proximal phalanx, and partially in the middle and distal phalanges. Mild cortical thinning is present at the base of the proximal phalanx on the plantar surface at the region of an open soft tissue wound/ulcer measuring at least 8.5 mm in diameter, compatible with osteomyelitis. Similar findings are seen dorsum of the head of the fifth metatarsal bone also due to mild osteomyelitis. No visualized abscess. Diffuse enhancement is present in the affected fifth metatarsal head and neck and throughout the phalanges. Normal metatarsophalangeal joint of the hallux. Normal tibial and fibular sesamoids, with normal sesamoids-first metatarsal articulations. Normal interphalangeal joint of the hallux. Normal proximal and distal phalanges of the great toe. Normal medial and lateral heads of the flexor hallucis brevis tendons. Normal flexor and extensor hallucis longus tendons. Normal second through fifth metatarsophalangeal (MTP) joints. Normal interphalangeal joints of the second through fifth toes. Normal proximal, middle and distal phalanges of the second through fifth toes. Normal flexor and extensor tendons of the second through fifth toes. Normal first through fourth intermetatarsal spaces. Normal remaining visualized metatarsi. There is diffuse atrophy of the intrinsic muscles of the forefoot consistent with a peripheral neuropathy. MRI/Lower Ext No Joint W/WO Cont IMPRESSION: 1. Diffuse edema is present in the head of the fifth metatarsal bone, throughout the proximal phalanx, and partially in the middle and distal phalanges. 2. Mild cortical thinning is present at the base of the proximal phalanx on the plantar surface at the region of an open soft tissue wound/ulcer measuring at least 8.5 mm in diameter, compatible with osteomyelitis. 3. Similar findings are seen dorsum of the head of the fifth metatarsal bone also due to mild osteomyelitis. No visualized abscess. Diffuse enhancement is present in the affected fifth metatarsal head and neck and throughout the phalanges. 4. Mild diffuse subcutaneous edema is present. No discrete fluid collections are seen. Electronically Signed: Kole Terry MD at 23:21 EST , Service support ,
[2020-08-28 17:24] VITALS: BP 144/61; PULSE 89; RESP 20; TEMP 36.9; O2SAT 95
--- NOTE | 2020-08-28 17:24 | EKG12_ITS ---
Test Reason : PRE-OP Blood Pressure : / mmHG Vent. Rate : 082 BPM Atrial Rate : 082 BPM P-R Int : 174 ms QRS Dur : 112 ms QT Int : 388 ms P-R-T Axes : 045 064 067 degrees QTc Int : 453 ms Normal sinus rhythm Normal ECG Confirmed by EMMA VACA, JANE ([id number]), legal editor CHERYL EDWARD ([id number]) on 08/30/2020 1:37:37 PM Referred By: Aneta Barron Confirmed By:JANE CARTER MD
--- NOTE | 2020-08-28 17:54 | PCM.PROGNOTE ---
<Monica Barillas BE[employer]OSS - Last Filed: 08/28/20 18:06> Patient Problems: Active and Suspected Problems (Last Updated 08/28/20 @ 17:[address] Irene Claudio DPM) Cellulitis of right lower limb (Acute) Osteomyelitis of right foot (Suspected) Subjective: Patient seen and examined. Denies fever, chills. Denies pain. Plan for OR tomorrow for right foot wound. Denies current symptoms or complaints. Hospitalist medicine consulted for medical management. - Physical Exam Vitals/I&O's: Vital Signs Temp Pulse Resp BP Pulse Ox 98.4 F 89 20 H 144/61 H 95 08/28/20 17:24 08/28/20 17:24 08/28/20 17:24 08/28/20 17:24 08/28/20 17:24 Oxygen Delivery Method Room Air Weight: 365 lb 4.895 oz Body Mass Index (BMI) 46.9 Finger Stick Blood Glucose 137 General: Alert, Oriented x3, Cooperative HEENT: Atraumatic, PERRLA, EOMI, Normocephalic Neck: Supple, No JVD, Negative Carotid Bruits Lungs: Clear to auscultation, Normal air movement Cardiovascular: Regular rate, No murmurs Abdomen: Bowel Sounds Present, Soft, Non Tender, Non-Distended, Obese Extremities: No clubbing, No cyanosis, No edema, Capillary Refill Less than 3 Seconds Skin: No rashes, No breakdown, - - Right foot wound, dressing intact Musculoskeletal: No Tenderness to Palpation of Joints or Extremities Neurological: Cranial nerves II-XII grossly intact, Neuro grossly intact Psych/Mental Status: Normal Affect, Appropriate Current Medications Dextrose (Dextrose 50%-Water 25 Gm/50 Ml Disp.Syrin) 0 gm IV X1 PRN; Protocol PRN Reason: Hypoglycemia Docusate Sodium (Docusate Sodium 100 Mg Capsule) 100 mg PO BID PRN PRN PRN Reason: Constipation Famotidine (Famotidine 20 Mg Tablet) 20 mg PO BID GT Glucagon (Glucagon 1 Mg/Ml Syringe) 1 mg IM .X1 PRN PRN Reason: Hypoglycemia Sodium Chloride () 250 mls @ 15 mls/hr IV .[id number] PRN PRN Reason: Saline Flush Sodium Chloride () 250 mls @ 15 mls/hr IV .[id number] PRN PRN Reason: Additional IVPB Infusion Piperacillin Sod/Tazobactam (Sod 3.375 gm/ Sodium Chloride) 50 mls @ 12.5 mls/hr IV Q8 GT Vancomycin IV Pharmacy to Dose (1 ea/ Sodium Chloride) 500 mls @ 250 mls/hr IV X1 PRN; Protocol PRN Reason: Rx to Dose Vancomycin HCl 2,000 mg/ (Sodium Chloride) 540 mls @ 250 mls/hr IV X1 ONE Stop: 08/28/20 20:09 Melatonin (Melatonin 3 Mg Tablet) 3 mg PO QHS PRN PRN PRN Reason: INSOMNIA Nicotine (Nicotine 21 Mg Patch) 21 mg TD DAILY GT Ondansetron HCl (Ondansetron 4 Mg/2 Ml Vial) 4 mg IV Q8H PRN PRN PRN Reason: NAUSEA/VOMITING Oxycodone HCl (Oxycodone 5 Mg Tablet) 5 mg PO Q4H PRN PRN PRN Reason: Pain Score 4-10/10 Sodium Chloride (0.9% Saline Lock 10 Ml Syringe) 10 - 40 ml IV UD PRN PRN Reason: SALINE FLUSH Medical Necessity - Tobacco Use Smoking Status: Heavy Smoker (>10/day) Assessment/Plan All Active Problems (Last Updated 08/28/20 @ 17:[address] Irene Claudio, DP) DEAN (acute kidney injury) (Acute) Severe sepsis (Acute) Elevated troponin (Acute) Dehydration (Acute) Diabetic hyperosmolar non-ketotic state (Acute) Foot abscess, left (Acute) Foot abscess, left (Acute) Other acquired deformities of left foot (Acute) Colonization status (Acute) Cerumen impaction (Acute) Left ankle pain (Acute) Osteomyelitis of left foot (Resolved) Cellulitis of left lower limb (Acute) Cellulitis of right foot (Resolved) Maceration of periwound skin (Acute) Injury of right foot (Acute) Muscle strain of right lower extremity (Acute) Cellulitis of right lower limb (Acute) 1. Type 2 diabetes mellitus, poorly controlled with neuropathy-hemoglobin A1c Feb 08 2010.5%. Accu-Cheks with sliding scale insulin. Continue U5 100 regimen. 2. Acute right foot cellulitis with suspected fifth metatarsal osteomyelitis, chronic right foot ulceration-podiatry admitting. MRI ordered. Continue IV vancomycin and IV Zosyn. Follow cultures. Plan for debridement tomorrow per podiatry. 3. Hyperlipidemia-continue statin. 4. Hypertension-continue lisinopril. 5. BPH-continue Flomax. 6. Tobacco dependence- encouraged cessation. DVT prophylaxis- SCDs This patient was seen by NAGA Mercado under the supervision of Dr. Linder. <Audrey Linder - Last Filed: 08/28/20 20:48> - Physical Exam Vitals/I&O's: Vital Signs Temp Pulse Resp BP Pulse Ox 98.4 F 89 20 H 144/61 H 95 08/28/20 17:24 08/28/20 17:24 08/28/20 17:24 08/28/20 17:24 08/28/20 17:24 Oxygen Delivery Method Room Air Weight: 165.7 kg Body Mass Index (BMI) 46.9 Finger Stick Blood Glucose 137 Intake and Output for Last 24 Hours 08/26/20 08/27/20 08/28/20 23:59 23:59 23:59 Intake Total 558.33 / 558.33 Balance 558.33 / 558.33 Laboratory Results 08/28/20 17:59: POC Glucose 61 L 08/28/20 18:18: POC Glucose 78 08/28/20 18:19: WBC 12.0 H, RBC 4.87, Hgb 13.6, Hct 44.0, MCV 90.3, MCH 27.9, MCHC 30.9 L, RDW Std Deviation 48.8 H, RDW Coeff of Fatuma 14.6, Plt Count 264, MPV 9.9, Immature Gran % (Auto) 0.800, Neut % (Auto) 70.9 H, Lymph % (Auto) 17.3 L, [place] % (Auto) 7.5, Eos % (Auto) 2.7, Baso % (Auto) 0.8, Absolute Neuts (auto) 8.5 H, Absolute Lymphs (auto) 2.07, Nucleated RBC % 0, ESR 114 H 08/28/20 18:19: Sodium 141, Potassium 4.3, Chloride 109 H, Carbon Dioxide 27.0, Anion Gap 5, BUN 22 H, Creatinine 0.86, Estim Creat Clear Calc 100.89, Est GFR (MDRD) Af Amer 115, Est GFR (MDRD) Non-Af 95, BUN/Creatinine Ratio 25.6 H, Glucose 69 L, Calcium 8.8, Total Bilirubin 0.40, AST 15, ALT 31, Alkaline Phosphatase 84, C-React Prot Ext Range 50.30 H, Total Protein 8.1, Albumin 3.0 L, Globulin 5.1 H, Albumin/Globulin Ratio 0.6 L 08/28/20 18:19: Lactic Acid 1.2 Current Medications Atorvastatin Calcium (Atorvastatin Calcium 40 Mg Tablet) 40 mg PO QHS [facility] Bupropion HCl (Bupropion (Sr) 150 Mg Tablet.Sa) 150 mg PO BID [facility] Dextrose (Dextrose 50%-Water 25 Gm/50 Ml Disp.Syrin) 0 gm IV X1 PRN; Protocol PRN Reason: Hypoglycemia Docusate Sodium (Docusate Sodium 100 Mg Capsule) 100 mg PO BID PRN PRN PRN Reason: Constipation Famotidine (Famotidine 20 Mg Tablet) 20 mg PO BID [facility] Gabapentin (Gabapentin 600 Mg Tablet) 600 mg PO TIDCM [facility] Glucagon (Glucagon 1 Mg/Ml Syringe) 1 mg IM .X1 PRN PRN Reason: Hypoglycemia Sodium Chloride () 250 mls @ 15 mls/hr IV .[id number] PRN PRN Reason: Saline Flush Last Infusion: 08/28/20 18:46 Dose: 0 mls/hr Documented by: Sodium Chloride () 250 mls @ 15 mls/hr IV .[id number] PRN PRN Reason: Additional IVPB Infusion Piperacillin Sod/Tazobactam (Sod 3.375 gm/ Sodium Chloride) 50 mls @ 12.5 mls/hr IV Q8 [facility] Vancomycin IV Pharmacy to Dose (1 ea/ Sodium Chloride) 500 mls @ 250 mls/hr IV X1 PRN; Protocol PRN Reason: Rx to Dose Insulin Human Lispro (Insulin Lispro 100 Unit/Ml Insuln.Pen) 0 unit SC ACHS [facility]; Protocol Insulin Human Regular (Insulin U-500 Pen) 150 units SC TID [facility] Lisinopril (Lisinopril 40 Mg Tablet) 40 mg PO DAILY [facility] Melatonin (Melatonin 3 Mg Tablet) 3 mg PO QHS PRN PRN PRN Reason: INSOMNIA Nicotine (Nicotine 21 Mg Patch) 21 mg TD DAILY [facility] Nutritional Formula (Lactose Free) (Glucerna Shake 120 Ml Liquid) 120 ml PO 4X/DAY [facility] Ondansetron HCl (Ondansetron 4 Mg/2 Ml Vial) 4 mg IV Q8H PRN PRN PRN Reason: NAUSEA/VOMITING Oxycodone HCl (Oxycodone 5 Mg Tablet) 5 mg PO Q4H PRN PRN PRN Reason: Pain Score 4-10/10 Last Admin: 08/28/20 18:20 Dose: 5 mg Documented by: Sodium Chloride (0.9% Saline Lock 10 Ml Syringe) 10 - 40 ml IV UD PRN PRN Reason: SALINE FLUSH Last Admin: 08/28/20 18:46 Dose: 10 ml Documented by: Tamsulosin HCl (Tamsulosin Hcl 0.4 Mg Capsule) 0.4 mg PO DAILY@1730 [facility] Assessment/Plan This patient was seen in conjunction with Monica Barillas NP. I have independently interviewed and examined the patient and reviewed pertinent historical, laboratory, and other data. Please refer to her note for patient's presentation, findings, and recommendations. Consult for medical management: 65-year-old male with past medical history of type II DM complicated by nephropathy, with chronic right foot wound who comes in to follow-up in the wound center with podiatry with worsening foot pain and odor. Patient's exam was suggestive of worsening foot infection/cellulitis with possible osteomyelitis Denied any fever or chills Discussed with podiatry, plan is for OR tomorrow Vitals were reviewed -stable Physical Exam: Gen: Comfortable, not pale, not jaundiced, alert oriented x3 CVS:HS I +II, regular, no murmurs RESP: Diminished at lung bases GI: BS present and normal, nontender, no palpable organs EXT:No edema, right foot dressing Labs reviewed: ASSESSMENT: 1. Acute right foot cellulitis, history of chronic right foot ulcer with suspected right fifth metatarsal osteomyelitis 2. Type II DM, HbA1c in July was 8.3 3. Hypertension 4. Hyperlipidemia 5. Nicotine dependence 6. BPH Meds reviewed Plan: Continue IV antibiotics -vancomycin and Zosyn Continue to trend blood sugars -hold this p.m. insulin Aggressively treat hypoglycemia Follow-up on MRI Inpatient E&M: 27957 Subs Hosp L2
[2020-08-28 18:05] LABS: Bedside Glucose 61 mg/dL (70-110)
[2020-08-28] MEDS: oxyCODONE 5 MG Tablet PO (18:20)
[2020-08-28 18:37] LABS: Absolute Lymphocyte Count 2.07 X10^3/uL (0.83-4.51); Absolute Neutrophil Count 8.5 X10^3/uL (2.0-7.7); Basophil% 0.8 % (0-1); Eosinophil# 0.32 X10^3/uL; Eosinophils% 2.7 % (0-5); Hemoglobin 13.6 g/dL (13.0-16.5); Lymphocyte # 2.07 X10^3/ul (4.0); Lymphocyte % 17.3 % (19-41); Mean Corp Hgb Conc 30.9 g/dL (32-36); Mean Corpuscular Hgb 27.9 pg (27.0-32.0); Mean Corpuscular Volume 90.3 fL (80-94); Mean Platelet Vol. 9.9 fl (6.2-12.0); Monocyte% 7.5 % (0-10); NRBC Flagged by Analyzer 0 % (0-5); Neutrophil # 8.51 X10^3/uL (2.7-7.7); Neutrophil % 70.9 % (47-70); Platelet Count 264 K/mm3 (150-450); RBC Distribution Width CV 14.6 % (11.6-14.6); RBC Distribution Width SD 48.8 fl (35.1-43.9); Red Blood Count 4.87 M/mm3 (4.6-6.2)
[2020-08-28] MEDS: 0.9% Saline Lock 10 ML Syringe IV ×2 (18:46→21:56)
[2020-08-28 19:00] LABS: Erythrocyte Sedimentation Rate 114 mm/hr (0-20)
[2020-08-28 19:06] LABS: Bedside Glucose 78 mg/dL (70-110)
[2020-08-28 19:11] LABS: Lactic Acid 1.2 mmol/L (0.4-1.9)
[2020-08-28 19:13] LABS: ALB/GLOB Ratio 0.6 RATIO (0.9-2.4); AST(SGOT) 15 U/L (15-37); Alanine Aminotransfer ALT/SGPT 31 U/L (16-61); Alkaline Phosphatase 84 U/L (45-117); Anion Gap 5 (5-15); BUN 22 mg/dL (7-18); BUN/Creat Ratio 25.6 RATIO (10-20); Calcium,Total 8.8 mg/dL (8.5-10.1); Chloride 109 mmol/L (98-107); Creatinine, Serum 0.86 mg/dL (0.70-1.30); EST Glomerular Filtration Rate 95 mL/min (>60); Est Glom Filt Rate - Afr Amer 115 mL/min (>60); Estimated Creatinine Clearance 100.89 ml/min; Globulin 5.1 g/dL (2.2-4.2); Glucose 69 mg/dL (74-106); Potassium 4.3 mmol/L (3.5-5.1); Protein, Total 8.1 g/dL (6.4-8.2); Sodium Level 141 mmol/L (136-145)
[2020-08-28 21:50] VITALS: BP 139/65; PULSE 67; RESP 18; TEMP 36.5; O2SAT 92
[2020-08-28] MEDS: Famotidine 20 MG Tablet PO (21:58)
[2020-08-28] MEDS: buPROPion (SR) 150 MG Tablet.SA PO (21:58)
[2020-08-28] MEDS: Atorvastatin Calcium 40 MG Tablet PO (21:58)
[2020-08-28] MEDS: Gabapentin 600 MG Tablet PO (21:59)
[2020-08-28] MEDS: Tamsulosin HCl 0.4 MG Capsule PO (21:59)
[2020-08-28] MEDS: MELATONIN 3 MG TABLET PO (22:07)
[2020-08-28] MEDS: Glucerna Shake 120 ML LIQUID PO (22:07)
[2020-08-28] MEDS: 0.9% Normal Saline 1,000 ML 75 ML IV (22:11)
[2020-08-28 22:16] LABS: Bedside Glucose 97 mg/dL (70-110)
--- NOTE | 2020-08-28 22:37 | PCM.RX.CS ---
Consult Pharmacy has been consulted to manage selected antiobiotic: Vancomycin Type of Consult: New start Prior Doses of Antibiotics Received/Current Regimen: Medications Discontinued Medications Vancomycin HCl 2,000 mg/ (Sodium Chloride) 540 mls @ 250 mls/hr IV X1 ONE Stop: 08/28/20 20:09 Last Admin: 08/28/20 21:59 Dose: 250 mls/hr Documented by: Labs: Sodium 141 mmol/L (136-145) 08/28/20 18:19 Potassium 4.3 mmol/L (3.5-5.1) 08/28/20 18:19 Chloride 109 mmol/L (98-107) H 08/28/20 18:19 Carbon Dioxide 27.0 mmol/L (21.0-32.0) 08/28/20 18:19 Anion Gap 5 (5-15) 08/28/20 18:19 BUN 22 mg/dL (7-18) H 08/28/20 18:19 Creatinine 0.86 mg/dL (0.70-1.30) 08/28/20 18:19 Est GFR (MDRD) Af Amer 115 mL/min (>60) 08/28/20 18:19 Est GFR (MDRD) Non-Af 95 mL/min (>60) 08/28/20 18:19 BUN/Creatinine Ratio 25.6 RATIO (10-20) H 08/28/20 18:19 Glucose 69 mg/dL (74-106) L 08/28/20 18:19 Weight used for dosin kg Estimated Creatinine Clearance: 100 Goal Trough: 15-20 mcg/mL Pharmacy Plan for Drug Dosing: In a previous admission, patient was given 1750mg IV x1 followed by 1500mg IV q12h followed by increased SCr and vanc levels. Protocol dose is 1500mg IV q8h but considering that huge dose, especially for patients age, will restart on previous dose that patient tolerated of 1500mg IV q12h. Need to watch levels closely. Pharmacy Service will continue to monitor and adjust dosing as required. Follow-Up Labs: Trough Vancomycin - 08/30 @ 3066
[2020-08-29] VITALS (10 sets, daily range): BP systolic 109–156; BP diastolic 60–117; PULSE 73–87; RESP 16–18; TEMP 36.2–36.7; O2SAT 92–100
[2020-08-29] MEDS: oxyCODONE 5 MG Tablet PO ×3 (00:39→21:17)
--- NOTE | 2020-08-29 05:55 | RAD_ITS ---
STUDY: X-RAY CHEST REASON FOR EXAM: Male, 65 years old. Pre op -- diabetic -- some XIE TECHNIQUE: Single AP portable view of the chest. COMPARISON: Comparison is made with prior study dated 02/18/2020. FINDINGS: Hyperinflation. The lungs are clear. There is no demonstrated pleural abnormality. Normal size heart. Normal mediastinum and meche. There is prominence of the pulmonary hilar arteries without peripheral pulmonary vascular congestion, suggesting pulmonary hypertension. Normal visualized aortic arch and descending thoracic aorta. Normal visualized thoracic spine. Normal visualized ribs, clavicles, and shoulders. There is no demonstrated abnormality of the visualized soft tissue structures of the upper abdomen. RAD/Chest 1 View (Portable) IMPRESSION: Hyperinflation. Prominence of the central pulmonary arteries. Electronically Signed: John Gibbons, at 8:58 EST , Service support ,
[2020-08-29 07:31] LABS: Absolute Lymphocyte Count 2.58 X10^3/uL (0.83-4.51); Absolute Neutrophil Count 6.8 X10^3/uL (2.0-7.7); Basophil% 0.9 % (0-1); Eosinophil# 0.42 X10^3/uL; Eosinophils% 3.9 % (0-5); Hematocrit 41.3 % (40-54); Hemoglobin 12.7 g/dL (13.0-16.5); Lymphocyte # 2.58 X10^3/ul (4.0); Mean Corp Hgb Conc 30.8 g/dL (32-36); Mean Platelet Vol. 9.9 fl (6.2-12.0); Monocyte# 0.81 X10^3/uL; Monocyte% 7.5 % (0-10); NRBC Flagged by Analyzer 0 % (0-5); Neutrophil # 6.76 X10^3/uL (2.7-7.7); Platelet Count 232 K/mm3 (150-450); RBC Distribution Width CV 14.6 % (11.6-14.6); RBC Distribution Width SD 49.4 fl (35.1-43.9); Red Blood Count 4.54 M/mm3 (4.6-6.2); White Blood Count 10.7 K/mm3 (4.4-11.0)
[2020-08-29 07:59] LABS: ALB/GLOB Ratio 0.5 RATIO (0.9-2.4); AST(SGOT) 20 U/L (15-37); Alanine Aminotransfer ALT/SGPT 28 U/L (16-61); Albumin, Serum 2.6 g/dL (3.2-5.0); Alkaline Phosphatase 76 U/L (45-117); Anion Gap 6 (5-15); BUN 18 mg/dL (7-18); BUN/Creat Ratio 20.5 RATIO (10-20); Calcium,Total 8.4 mg/dL (8.5-10.1); Chloride 106 mmol/L (98-107); Creatinine, Serum 0.88 mg/dL (0.70-1.30); EST Glomerular Filtration Rate 93 mL/min (>60); Est Glom Filt Rate - Afr Amer 112 mL/min (>60); Globulin 4.9 g/dL (2.2-4.2); Glucose 115 mg/dL (74-106); Potassium 4.1 mmol/L (3.5-5.1); Protein, Total 7.5 g/dL (6.4-8.2); Sodium Level 137 mmol/L (136-145)
--- NOTE | 2020-08-29 07:59 | PN_ITS ---
Patient Problems: Active and Suspected Problems (Last Updated 08/28/20 @ 17:[address] Irene Claudio, [facility]) Cellulitis of right lower limb (Acute) Osteomyelitis of right foot (Suspected) Subjective: Patient seen bedside resting comfortably. Patient relates being thirsty. Patient is anxious about surgery and potential COVID 19 exposure. Patient denies N/F/V/C/CP/SOB. - Physical Exam Vitals/I&O's: Vital Signs Temp Pulse Resp BP Pulse Ox 97.7 F L 73 18 116/71 92 08/29/20 03:58 08/29/20 03:58 08/29/20 03:58 08/29/20 03:58 08/29/20 03:58 Oxygen Delivery Method Room Air Weight: 165.7 kg Body Mass Index (BMI) 46.9 Finger Stick Blood Glucose 137 Intake and Output for Last 24 Hours 08/27/20 08/28/20 08/29/20 23:59 23:59 23:59 Intake Total 1303.75 / 1303.75 1161.25 / 1161.25 Output Total 300 / 300 250 / 250 Balance 1003.75 / 1003.75 911.25 / 911.25 General: Alert, Oriented x3 HEENT: Atraumatic Extremities: No clubbing, No cyanosis, Capillary Refill Less than 3 Seconds Skin: Ulcer/ Wound - bilateral feet Musculoskeletal: Muscle Wasting, Tenderness, - - total contact cast noted to left lower extremity Neurological: - - decreased epicritic sensation consistent with neuropathy Psych/Mental Status: Normal Affect, Appropriate, Alert and oriented to time, place, person, mood and affect Microbiology Past 72 Hours 08/28/20 23:00 Interface Orders - Final Laboratory Results 08/28/20 17:59: POC Glucose 61 L 08/28/20 18:18: POC Glucose 78 08/28/20 18:19: WBC 12.0 H, RBC 4.87, Hgb 13.6, Hct 44.0, MCV 90.3, MCH 27.9, MCHC 30.9 L, RDW Std Deviation 48.8 H, RDW Coeff of Fatuma 14.6, Plt Count 264, MPV 9.9, Immature Gran % (Auto) 0.800, Neut % (Auto) 70.9 H, Lymph % (Auto) 17.3 L, [place] % (Auto) 7.5, Eos % (Auto) 2.7, Baso % (Auto) 0.8, Absolute Neuts (auto) 8.5 H, Absolute Lymphs (auto) 2.07, Nucleated RBC % 0, ESR 114 H 08/28/20 18:19: Sodium 141, Potassium 4.3, Chloride 109 H, Carbon Dioxide 27.0, Anion Gap 5, BUN 22 H, Creatinine 0.86, Estim Creat Clear Calc 100.89, Est GFR (MDRD) Af Amer 115, Est GFR (MDRD) Non-Af 95, BUN/Creatinine Ratio 25.6 H, Glucose 69 L, Calcium 8.8, Total Bilirubin 0.40, AST 15, ALT 31, Alkaline Phosphatase 84, C-React Prot Ext Range 50.30 H, Total Protein 8.1, Albumin 3.0 L , Globulin 5.1 H, Albumin/Globulin Ratio 0.6 L 08/28/20 18:19: Lactic Acid 1.2 08/28/20 22:04: POC Glucose 97 08/29/20 07:18: WBC 10.7, RBC 4.54 L, Hgb 12.7 L, Hct 41.3, MCV 91.0, MCH 28.0, MCHC 30.8 L, RDW Std Deviation 49.4 H, RDW Coeff of Fatuma 14.6, Plt Count 232, MPV 9.9, Immature Gran % (Auto) 0.700, Neut % (Auto) 63.0, Lymph % (Auto) 24.0, [place] % (Auto) 7.5, Eos % (Auto) 3.9, Baso % (Auto) 0.9, Absolute Neuts (auto) 6.8, Absolute Lymphs (auto) 2.58, Nucleated RBC % 0 08/29/20 07:18: Sodium 137, Potassium 4.1, Chloride 106, Carbon Dioxide 25.0, Anion Gap 6, BUN 18, Creatinine 0.88, Estim Creat Clear Calc 98.60, Est GFR ( RD) Af Amer 112, Est GFR (MDRD) Non-Af 93, BUN/Creatinine Ratio 20.5 H, Glucose 115 H, Calcium 8.4 L, Total Bilirubin 0.50, AST 20, ALT 28, Alkaline Phosphatase 76, Total Protein 7.5, Albumin 2.6 L, Globulin 4.9 H, Albumin/Globulin Ratio 0.5 L Current Medications Atorvastatin Calcium (Atorvastatin Calcium 40 Mg Tablet) 40 mg PO QHS [facility] Last Admin: 08/28/20 21:58 Dose: 40 mg Documented by: Bupropion HCl (Bupropion (Sr) 150 Mg Tablet.Sa) 150 mg PO BID [facility] Last Admin: 08/28/20 21:58 Dose: 150 mg Documented by: Dextrose (Dextrose 50%-Water 25 Gm/50 Ml Disp.Syrin) 0 gm IV X1 PRN; Protocol PRN Reason: Hypoglycemia Docusate Sodium (Docusate Sodium 100 Mg Capsule) 100 mg PO BID PRN PRN PRN Reason: Constipation Famotidine (Famotidine 20 Mg Tablet) 20 mg PO BID [facility] Last Admin: 08/28/20 21:58 Dose: 20 mg Documented by: Gabapentin (Gabapentin 600 Mg Tablet) 600 mg PO TIDCM [facility] Last Admin: 08/28/20 21:59 Dose: 600 mg Documented by: Glucagon (Glucagon 1 Mg/Ml Syringe) 1 mg IM .X1 PRN PRN Reason: Hypoglycemia Sodium Chloride () 250 mls @ 15 mls/hr IV .[id number] PRN PRN Reason: Saline Flush Last Infusion: 08/28/20 18:46 Dose: 0 mls/hr Documented by: Sodium Chloride () 250 mls @ 15 mls/hr IV .[id number] PRN PRN Reason: Additional IVPB Infusion Piperacillin Sod/Tazobactam (Sod 3.375 gm/ Sodium Chloride) 50 mls @ 12.5 mls/hr IV Q8 [facility] Last Infusion: 08/29/20 03:51 Dose: Infused Documented by: Vancomycin IV Pharmacy to Dose (1 ea/ Sodium Chloride) 500 mls @ 250 mls/hr IV X1 PRN; Protocol PRN Reason: Rx to Dose Sodium Chloride () 1,000 mls @ 75 mls/hr IV .[id number] [facility] Stop: 08/29/20 10:34 Last Infusion: 08/29/20 06:40 Dose: 0 mls/hr Documented by: Vancomycin HCl 1,500 mg/ (Sodium Chloride) 530 mls @ 250 mls/hr IV Q12H [facility] Last Infusion: 08/29/20 07:36 Dose: Infused Documented by: Insulin Human Lispro (Insulin Lispro 100 Unit/Ml Insuln.Pen) 0 unit SC ACHS [facility]; Protocol Last Admin: 08/28/20 22:05 Dose: Not Given Documented by: Insulin Human Regular (Insulin U-500 Pen) 150 units SC BREAKFAST [facility] Insulin Human Regular (Insulin U-500 Pen) 160 units SC LUNCH [facility] Insulin Human Regular (Insulin U-500 Pen) 140 units SC DINNER [facility] Lisinopril (Lisinopril 40 Mg Tablet) 40 mg PO DAILY [facility] Melatonin (Melatonin 3 Mg Tablet) 3 mg PO QHS PRN PRN PRN Reason: INSOMNIA Last Admin: 08/28/20 22:07 Dose: 3 mg Documented by: Nicotine (Nicotine 21 Mg Patch) 21 mg TD DAILY [facility] Last Admin: 08/28/20 21:57 Dose: 21 mg Documented by: Nutritional Formula (Lactose Free) (Glucerna Shake 120 Ml Liquid) 120 ml PO 4X/DAY [facility] Last Admin: 08/28/20 22:07 Dose: 120 ml Documented by: Ondansetron HCl (Ondansetron 4 Mg/2 Ml Vial) 4 mg IV Q8H PRN PRN PRN Reason: NAUSEA/VOMITING Oxycodone HCl (Oxycodone 5 Mg Tablet) 5 mg PO Q4H PRN PRN PRN Reason: Pain Score 4-10/10 Last Admin: 08/29/20 00:39 Dose: 5 mg Documented by: Sodium Chloride (0.9% Saline Lock 10 Ml Syringe) 10 - 40 ml IV UD PRN PRN Reason: SALINE FLUSH Last Admin: 08/28/20 21:56 Dose: 20 ml Documented by: Tamsulosin HCl (Tamsulosin Hcl 0.4 Mg Capsule) 0.4 mg PO DAILY@1730 [facility] Last Admin: 08/28/20 21:59 Dose: 0.4 mg Documented by: Medical Necessity - Tobacco Use Smoking Status: Heavy Smoker (>10/day) Assessment/Plan All Active Problems (Last Updated 08/28/20 @ 17:[address] Irene Claudio DPM) DEAN (acute kidney injury) (Acute) Severe sepsis (Acute) Elevated troponin (Acute) Dehydration (Acute) Diabetic hyperosmolar non-ketotic state (Acute) Foot abscess, left (Acute) Foot abscess, left (Acute) Other acquired deformities of left foot (Acute) Colonization status (Acute) Cerumen impaction (Acute) Left ankle pain (Acute) Osteomyelitis of left foot (Resolved) Cellulitis of left lower limb (Acute) Cellulitis of right foot (Resolved) Maceration of periwound skin (Acute) Injury of right foot (Acute) Muscle strain of right lower extremity (Acute) Cellulitis of right lower limb (Acute) Right foot infection Osteomyelitis fifth metatarsal is suspected Uncontrolled diabetes with neuropathy bilateral foot ulcers Other comorbidities include tobacco abuse, obesity, sleep apnea, hyperlipidemia, hypertension, prior stage II kidney disease, BPH Patient seen bedside Reviewed MRI and lab work with patient Reviewed surgical options with the patient as well as not conservative options including IV antibiotics. Discussed that with the extent of the infection noted on MRI as well as his rapid decline in wound appearance over the course of the week that I would recommend surgical intervention. Reviewed all risk benefits alternatives and complications including but not limited to infection delayed healing nonhealing need for further surgery or further amputation with the patient. All questions were answered. Patient agreed to proceed with the procedure. Patient is on the OR schedule for today at 4 PM. Patient is to be n.p.o. prior to. Cultures from yesterday are still pending. White blood cell count is within normal limits today was elevated upon admission PVRs from April 2020 were reviewed showing an KANDI of 0.94 which should show adequate blood flow for healing after surgery Patient is noted to have a total contact cast on his left lower extremity for foot ulceration Discussed with the patient the importance of nonweightbearing to the surgical si te but due to total contact cast on the opposite side realize that this is not feasible so recommend heel weightbearing Continue IV antibiotics Recommend ID consult Hospitalist will be consulted for medical management and care will be greatly appreciated including diabetes management, medication review, and IV fluid recommendations. The case was discussed with Dr. Linder. Please not hesitate to call if you have any questions.
[2020-08-29 08:01] LABS: Bedside Glucose 132 mg/dL (70-110)
[2020-08-29] MEDS: Lisinopril 40 MG Tablet PO (08:05)
[2020-08-29] MEDS: Gabapentin 600 MG Tablet PO ×3 (08:05→21:04)
[2020-08-29] MEDS: Famotidine 20 MG Tablet PO ×2 (08:06→21:17)
[2020-08-29] MEDS: buPROPion (SR) 150 MG Tablet.SA PO ×2 (08:06→22:07)
--- NOTE | 2020-08-29 11:31 | CON.PCM_ITS ---
Problem List (1) Osteomyelitis of right foot Status: Suspected Reason for Consult: osteo Consulted by: Dr. Claudio History of Present Illness: The patient is a 65 year old M with DM, neuropathy, recurrent foot infection, presented with several days worsening R foot pain, swelling, drainage, redness, and foul odor. No fever or chills. Follows at wound center. MRSA (+) in the past. Admitted on vanc/zosyn, seen by podiatry, MRI done, OR planned for today. Full ROS performed and neg except as noted above. - Medical History Past Medical History (Chronic Problems): Chronic Problems (Last Updated 08/28/20 @ 17:[address] 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) Diabetes (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) 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) Benign essential hypertension (Chronic) Mixed hyperlipidemia (Chronic) Chronic ulcer of right foot with fat layer exposed (Chronic) Obesity (Chronic) Tobacco abuse (Chronic) Osteomyelitis, unspecified (Chronic) Chronic ulcer of left foot with fat layer exposed (Chronic) Osteomyelitis of left foot (Chronic) Diabetic ulcer of left foot (Chronic) Other specified peripheral vascular diseases (Chronic) Delayed wound healing (Chronic) Difficulty in walking, not elsewhere classified (Chronic) 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) Tobacco abuse counseling (Chronic) MRSA (methicillin resistant staph aureus) culture positive (Chronic) Ulcer of left foot with muscle involvement without evidence of necrosis (Chronic) Ulcer of left foot with necrosis of muscle (Chronic) History of transmetatarsal amputation of left foot (Chronic) Ulcer of right foot with fat layer exposed (Chronic) Ulcer of right lower extremity with fat layer exposed (Chronic) Chronic ulcer of right foot with necrosis of muscle (Chronic) no necrosis clarified Allergies/Adverse Reactions: Allergies Sulfa (Sulfonamide Antibiotics) Allergy (Verified 07/28/20 14:16) Rash Home Medications: Ambulatory Orders Medication Instructions Recorded Calcium Carbonate [Calcium] 500 mg PO DAILY 06/23/17 Multivitamin [Multiple Vitamins] 1 ea PO DAILY 06/23/17 atorvastatin 40 mg tablet 40 mg PO DAILY 10/18/19 bupropion HCl 150 mg 24 hr tablet, 150 mg PO BID tab 10/18/19 extended release tamsulosin 0.4 mg capsule 0.4 mg PO DAILY@1730 cap 10/18/19 blood sugar diagnostic See Rx Instructions .ROUTE 10/28/19 .MEDSUPPLY #100 ea lancets 33 gauge See Rx Instructions .ROUTE 10/28/19 .MEDSUPPLY #100 ea gabapentin 300 mg capsule 600 mg PO TIDCM cap 04/24/20 aspirin 81 mg tablet,delayed 81 mg PO DAILY tab 07/28/20 release lisinopril 40 mg tablet 40 mg PO DAILY #90 tab 07/31/20 Insulin U-500 [Humulin R U-500 140 units SC DINNER 08/28/20 ([facility])] Insulin U-500 [Humulin R U-500 150 units SC BREAKFAST 08/28/20 ([facility])] Insulin U-500 [Humulin R U-500 160 units SC LUNCH 08/28/20 ([facility])] - Social History SMOKING STATUS:: Current every day smoker Vital Signs Temp Pulse Resp BP Pulse Ox 98.0 F 80 18 154/66 H 93 08/29/20 10:00 08/29/20 10:00 08/29/20 10:00 08/29/20 10:00 08/29/20 10:00 Oxygen Delivery Method Room Air Weight: 165.7 kg Body Mass Index (BMI) 46.9 Finger Stick Blood Glucose 137 Microbiology Past 72 Hours 08/28/20 23:00 - Final Interface Orders Laboratory Tests Past 24 Hrs 08/28/20 08/28/20 08/28/20 18:19 18:19 18:19 WBC 12.0 H RBC 4.87 Hgb 13.6 Hct 44.0 MCV 90.3 MCH 27.9 MCHC 30.9 L RDW Std Deviation 48.8 H RDW Coeff of Fatuma 14.6 Plt Count 264 MPV 9.9 Immature Gran % (Auto) 0.800 Neut % (Auto) 70.9 H Lymph % (Auto) 17.3 L [place] % (Auto) 7.5 Eos % (Auto) 2.7 Baso % (Auto) 0.8 Absolute Neuts (auto) 8.5 H Absolute Lymphs (auto) 2.07 Nucleated RBC % 0 ESR 114 H Sodium 141 Potassium 4.3 Chloride 109 H Carbon Dioxide 27.0 Anion Gap 5 BUN 22 H Creatinine 0.86 Estim Creat Clear Calc 100.89 Est GFR (MDRD) Af Amer 115 Est GFR (MDRD) Non-Af 95 BUN/Creatinine Ratio 25.6 H Glucose 69 L Lactic Acid 1.2 Calcium 8.8 Total Bilirubin 0.40 AST 15 ALT 31 Alkaline Phosphatase 84 C-React Prot Ext Range 50.30 H Total Protein 8.1 Albumin 3.0 L Globulin 5.1 H Albumin/Globulin Ratio 0.6 L 08/29/20 08/29/20 07:18 07:18 WBC 10.7 RBC 4.54 L Hgb 12.7 L Hct 41.3 MCV 91.0 MCH 28.0 MCHC 30.8 L RDW Std Deviation 49.4 H RDW Coeff of Fatuma 14.6 Plt Count 232 MPV 9.9 Immature Gran % (Auto) 0.700 Neut % (Auto) 63.0 Lymph % (Auto) 24.0 [place] % (Auto) 7.5 Eos % (Auto) 3.9 Baso % (Auto) 0.9 Absolute Neuts (auto) 6.8 Absolute Lymphs (auto) 2.58 Nucleated RBC % 0 ESR Sodium 137 Potassium 4.1 Chloride 106 Carbon Dioxide 25.0 Anion Gap 6 BUN 18 Creatinine 0.88 Estim Creat Clear Calc 98.60 Est GFR (MDRD) Af Amer 112 Est GFR (MDRD) Non-Af 93 BUN/Creatinine Ratio 20.5 H Glucose 115 H Lactic Acid Calcium 8.4 L Total Bilirubin 0.50 AST 20 ALT 28 Alkaline Phosphatase 76 C-React Prot Ext Range Total Protein 7.5 Albumin 2.6 L Globulin 4.9 H Albumin/Globulin Ratio 0.5 L - Other Studies Radiology: [] reviewed Other Studies: [] Route of nutrition/ use of supplements: [] Nutritional Intake: [] IV Site: [] Dyer Catheter: [] - Physical Exam General: Alert, Oriented x3, Cooperative, No apparent distress HEENT: Atraumatic, PERRLA, EOMI Neck: Supple, No Nodes Lungs: Clear to auscultation, Normal air movement Cardiovascular: Regular rate, Regular Rhythm Abdomen: Soft, Non Tender, Non-Distended Extremities: Edema Skin: Ulcer/ Wound - feet wrapped Musculoskeletal: No Tenderness to Palpation of Joints or Extremities Neurological: Cranial nerves II-XII grossly intact - Assessment/Plan Antibiotics: [] Assessment/Plan: [] Active and Suspected Problems (Last Updated 08/28/20 @ 17:[address] Irene Claudio, DP) Cellulitis of right lower limb (Acute) Osteomyelitis of right foot (Suspected) R foot osteo with uncontrolled DM - recent cxs with mrsa, enterococcus, klebs, strep mitis/oralis, and diphtheroids. Agree with vanc/zosyn. OR today. Will follow, thank you
[2020-08-29 12:01] LABS: Bedside Glucose 191 mg/dL (70-110)
--- NOTE | 2020-08-29 12:29 | PCM.PROGNOTE ---
<Monica Barillas SUPERVISOR [employer] - Last Filed: 08/29/20 12:35> Patient Problems: Active and Suspected Problems (Last Updated 08/28/20 @ 17:[address] Irene Claudio DPM) Cellulitis of right lower limb (Acute) Osteomyelitis of right foot (Suspected) Subjective: Patient seen and examined. Right lower extremity pain improved. Plan for OR at 4 PM. Patient denies current symptoms or complaints. - Physical Exam Vitals/I&O's: Vital Signs Temp Pulse Resp BP Pulse Ox 98.0 F 80 18 154/66 H 93 08/29/20 10:00 08/29/20 10:00 08/29/20 10:00 08/29/20 10:00 08/29/20 10:00 Oxygen Delivery Method Room Air Weight: 365 lb 4.895 oz Body Mass Index (BMI) 46.9 Finger Stick Blood Glucose 137 Intake and Output for Last 24 Hours 08/27/20 08/28/20 08/29/20 23:59 23:59 23:59 Intake Total 1303.75 / 1303.75 1161.25 / 1161.25 Output Total 300 / 300 1150 / 1150 Balance 1003.75 / 1003.75 11.25 / 11.25 General: Alert, Oriented x3, Cooperative HEENT: Atraumatic, PERRLA, EOMI, Normocephalic Neck: Supple, No JVD, Negative Carotid Bruits Lungs: Clear to auscultation, Normal air movement Cardiovascular: Regular rate, No murmurs Abdomen: Bowel Sounds Present, Soft, Non Tender, Non-Distended, Obese Extremities: No clubbing, No cyanosis, No edema, Capillary Refill Less than 3 Seconds Skin: No rashes, No breakdown, - - Right foot wound, dressing intact Musculoskeletal: No Tenderness to Palpation of Joints or Extremities Neurological: Cranial nerves II-XII grossly intact, Neuro grossly intact Psych/Mental Status: Normal Affect, Appropriate Microbiology Past 72 Hours 08/28/20 23:00 Interface Orders - Final Laboratory Results 08/28/20 17:59: POC Glucose 61 L 08/28/20 18:18: POC Glucose 78 08/28/20 18:19: WBC 12.0 H, RBC 4.87, Hgb 13.6, Hct 44.0, MCV 90.3, MCH 27.9, MCHC 30.9 L, RDW Std Deviation 48.8 H, RDW Coeff of Fatuma 14.6, Plt Count 264, MPV 9.9, Immature Gran % (Auto) 0.800, Neut % (Auto) 70.9 H, Lymph % (Auto) 17.3 L, [place] % (Auto) 7.5, Eos % (Auto) 2.7, Baso % (Auto) 0.8, Absolute Neuts (auto) 8.5 H, Absolute Lymphs (auto) 2.07, Nucleated RBC % 0, ESR 114 H 08/28/20 18:19: Sodium 141, Potassium 4.3, Chloride 109 H, Carbon Dioxide 27.0, Anion Gap 5, BUN 22 H, Creatinine 0.86, Estim Creat Clear Calc 100.89, Est GFR (MDRD) Af Amer 115, Est GFR (MDRD) Non-Af 95, BUN/Creatinine Ratio 25.6 H, Glucose 69 L, Calcium 8.8, Total Bilirubin 0.40, AST 15, ALT 31, Alkaline Phosphatase 84, C-React Prot Ext Range 50.30 H, Total Protein 8.1, Albumin 3.0 L, Globulin 5.1 H, Albumin/Globulin Ratio 0.6 L 08/28/20 18:19: Lactic Acid 1.2 08/28/20 22:04: POC Glucose 97 08/29/20 07:18: WBC 10.7, RBC 4.54 L, Hgb 12.7 L, Hct 41.3, MCV 91.0, MCH 28.0, MCHC 30.8 L, RDW Std Deviation 49.4 H, RDW Coeff of Fatuma 14.6, Plt Count 232, MPV 9.9, Immature Gran % (Auto) 0.700, Neut % (Auto) 63.0, Lymph % (Auto) 24.0, [place] % (Auto) 7.5, Eos % (Auto) 3.9, Baso % (Auto) 0.9, Absolute Neuts (auto) 6.8, Absolute Lymphs (auto) 2.58, Nucleated RBC % 0 08/29/20 07:18: Sodium 137, Potassium 4.1, Chloride 106, Carbon Dioxide 25.0, Anion Gap 6, BUN 18, Creatinine 0.88, Estim Creat Clear Calc 98.60, Est GFR (MDRD) Af Amer 112, Est GFR (MDRD) Non-Af 93, BUN/Creatinine Ratio 20.5 H, Glucose 115 H, Calcium 8.4 L, Total Bilirubin 0.50, AST 20, ALT 28, Alkaline Phosphatase 76, Total Protein 7.5, Albumin 2.6 L, Globulin 4.9 H, Albumin/Globulin Ratio 0.5 L 08/29/20 07:57: POC Glucose 132 H 08/29/20 11:54: POC Glucose 191 H Current Medications Atorvastatin Calcium (Atorvastatin Calcium 40 Mg Tablet) 40 mg PO QHS [facility] Last Admin: 08/28/20 21:58 Dose: 40 mg Documented by: Bupropion HCl (Bupropion (Sr) 150 Mg Tablet.Sa) 150 mg PO BID [facility] Last Admin: 08/29/20 08:06 Dose: 150 mg Documented by: Dextrose (Dextrose 50%-Water 25 Gm/50 Ml Disp.Syrin) 0 gm IV X1 PRN; Protocol PRN Reason: Hypoglycemia Docusate Sodium (Docusate Sodium 100 Mg Capsule) 100 mg PO BID PRN PRN PRN Reason: Constipation Famotidine (Famotidine 20 Mg Tablet) 20 mg PO BID [facility] Last Admin: 08/29/20 08:06 Dose: 20 mg Documented by: Gabapentin (Gabapentin 600 Mg Tablet) 600 mg PO TIDCM [facility] Last Admin: 08/29/20 12:26 Dose: 600 mg Documented by: Glucagon (Glucagon 1 Mg/Ml Syringe) 1 mg IM .X1 PRN PRN Reason: Hypoglycemia Sodium Chloride () 250 mls @ 15 mls/hr IV .[id number] PRN PRN Reason: Saline Flush Last Infusion: 08/28/20 18:46 Dose: 0 mls/hr Documented by: Sodium Chloride () 250 mls @ 15 mls/hr IV .[id number] PRN PRN Reason: Additional IVPB Infusion Piperacillin Sod/Tazobactam (Sod 3.375 gm/ Sodium Chloride) 50 mls @ 12.5 mls/hr IV Q8 [facility] Last Admin: 08/29/20 09:25 Dose: 12.5 mls/hr Documented by: Vancomycin IV Pharmacy to Dose (1 ea/ Sodium Chloride) 500 mls @ 250 mls/hr IV X1 PRN; Protocol PRN Reason: Rx to Dose Vancomycin HCl 1,500 mg/ (Sodium Chloride) 530 mls @ 250 mls/hr IV Q12H [facility] Last Infusion: 08/29/20 07:36 Dose: Infused Documented by: Insulin Human Lispro (Insulin Lispro 100 Unit/Ml Insuln.Pen) 0 unit SC ACHS [facility]; Protocol Last Admin: 08/29/20 08:03 Dose: Not Given Documented by: Insulin Human Regular (Insulin U-500 Pen) 150 units SC BREAKFAST [facility] Last Admin: 08/29/20 11:57 Dose: Not Given Documented by: Insulin Human Regular (Insulin U-500 Pen) 160 units SC LUNCH [facility] Insulin Human Regular (Insulin U-500 Pen) 140 units SC DINNER [facility] Lisinopril (Lisinopril 40 Mg Tablet) 40 mg PO DAILY [facility] Last Admin: 08/29/20 08:05 Dose: 40 mg Documented by: Melatonin (Melatonin 3 Mg Tablet) 3 mg PO QHS PRN PRN PRN Reason: INSOMNIA Last Admin: 08/28/20 22:07 Dose: 3 mg Documented by: Nicotine (Nicotine 21 Mg Patch) 21 mg TD DAILY [facility] Last Admin: 08/29/20 08:06 Dose: 21 mg Documented by: Nutritional Formula (Lactose Free) (Glucerna Shake 120 Ml Liquid) 120 ml PO 4X/DAY [facility] Last Admin: 08/29/20 08:06 Dose: Not Given Documented by: Ondansetron HCl (Ondansetron 4 Mg/2 Ml Vial) 4 mg IV Q8H PRN PRN PRN Reason: NAUSEA/VOMITING Oxycodone HCl (Oxycodone 5 Mg Tablet) 5 mg PO Q4H PRN PRN PRN Reason: Pain Score 4-10/10 Last Admin: 08/29/20 12:26 Dose: 5 mg Documented by: Sodium Chloride (0.9% Saline Lock 10 Ml Syringe) 10 - 40 ml IV UD PRN PRN Reason: SALINE FLUSH Last Admin: 08/28/20 21:56 Dose: 20 ml Documented by: Tamsulosin HCl (Tamsulosin Hcl 0.4 Mg Capsule) 0.4 mg PO DAILY@1730 [facility] Last Admin: 08/28/20 21:59 Dose: 0.4 mg Documented by: Medical Necessity - Tobacco Use Smoking Status: Heavy Smoker (>10/day) Assessment/Plan All Active Problems (Last Updated 08/28/20 @ 17:[address] Irene Claudio DPM) Cellulitis of right lower limb (Acute) 1. Type 2 diabetes mellitus, poorly controlled with neuropathy-hemoglobin A1c January 2020 10.5%. Accu-Cheks with sliding scale insulin. Continue U5 100 regimen. 2. Acute right foot cellulitis with suspected fifth metatarsal osteomyelitis, chronic right foot ulceration-podiatry primary. Continue IV vancomycin and IV Zosyn. Follow cultures. Plan for OR 08/29/2020. ID consulted. 3. Hyperlipidemia-continue statin. 4. Hypertension-continue lisinopril. 5. BPH-continue Flomax. 6. Tobacco dependence- encouraged cessation. DVT prophylaxis- SCDs This patient was seen by NAGA Mercado under the supervision of Dr. Esteves. <Andres Esteves E - Last Filed: 08/29/20 13:17> - Physical Exam Vitals/I&O's: Vital Signs Temp Pulse Resp BP Pulse Ox 98.0 F 80 18 154/66 H 93 08/29/20 10:00 08/29/20 10:00 08/29/20 10:00 08/29/20 10:00 08/29/20 10:00 Oxygen Delivery Method Room Air Weight: 365 lb 4.895 oz Body Mass Index (BMI) 46.9 Finger Stick Blood Glucose 137 Intake and Output for Last 24 Hours 08/27/20 08/28/20 08/29/20 23:59 23:59 23:59 Intake Total 1303.75 / 1303.75 1161.25 / 1161.25 Output Total 300 / 300 1150 / 1150 Balance 1003.75 / 1003.75 11.25 / 11.25 Microbiology Past 72 Hours 08/28/20 23:00 Interface Orders - Final Laboratory Results 08/28/20 17:59: POC Glucose 61 L 08/28/20 18:18: POC Glucose 78 08/28/20 18:19: WBC 12.0 H, RBC 4.87, Hgb 13.6, Hct 44.0, MCV 90.3, MCH 27.9, MCHC 30.9 L, RDW Std Deviation 48.8 H, RDW Coeff of Fatuma 14.6, Plt Count 264, MPV 9.9, Immature Gran % (Auto) 0.800, Neut % (Auto) 70.9 H, Lymph % (Auto) 17.3 L, [place] % (Auto) 7.5, Eos % (Auto) 2.7, Baso % (Auto) 0.8, Absolute Neuts (auto) 8.5 H, Absolute Lymphs (auto) 2.07, Nucleated RBC % 0, ESR 114 H 08/28/20 18:19: Sodium 141, Potassium 4.3, Chloride 109 H, Carbon Dioxide 27.0, Anion Gap 5, BUN 22 H, Creatinine 0.86, Estim Creat Clear Calc 100.89, Est GFR (MDRD) Af Amer 115, Est GFR (MDRD) Non-Af 95, BUN/Creatinine Ratio 25.6 H, Glucose 69 L, Calcium 8.8, Total Bilirubin 0.40, AST 15, ALT 31, Alkaline Phosphatase 84, C-React Prot Ext Range 50.30 H, Total Protein 8.1, Albumin 3.0 L, Globulin 5.1 H, Albumin/Globulin Ratio 0.6 L 08/28/20 18:19: Lactic Acid 1.2 08/28/20 22:04: POC Glucose 97 08/29/20 07:18: WBC 10.7, RBC 4.54 L, Hgb 12.7 L, Hct 41.3, MCV 91.0, MCH 28.0, MCHC 30.8 L, RDW Std Deviation 49.4 H, RDW Coeff of Fatuma 14.6, Plt Count 232, MPV 9.9, Immature Gran % (Auto) 0.700, Neut % (Auto) 63.0, Lymph % (Auto) 24.0, [place] % (Auto) 7.5, Eos % (Auto) 3.9, Baso % (Auto) 0.9, Absolute Neuts (auto) 6.8, Absolute Lymphs (auto) 2.58, Nucleated RBC % 0 08/29/20 07:18: Sodium 137, Potassium 4.1, Chloride 106, Carbon Dioxide 25.0, Anion Gap 6, BUN 18, Creatinine 0.88, Estim Creat Clear Calc 98.60, Est GFR (MDRD) Af Amer 112, Est GFR (MDRD) Non-Af 93, BUN/Creatinine Ratio 20.5 H, Glucose 115 H, Calcium 8.4 L, Total Bilirubin 0.50, AST 20, ALT 28, Alkaline Phosphatase 76, Total Protein 7.5, Albumin 2.6 L, Globulin 4.9 H, Albumin/Globulin Ratio 0.5 L 08/29/20 07:57: POC Glucose 132 H 08/29/20 11:54: POC Glucose 191 H Current Medications Atorvastatin Calcium (Atorvastatin Calcium 40 Mg Tablet) 40 mg PO QHS [facility] Last Admin: 08/28/20 21:58 Dose: 40 mg Documented by: Bupropion HCl (Bupropion (Sr) 150 Mg Tablet.Sa) 150 mg PO BID [facility] Last Admin: 08/29/20 08:06 Dose: 150 mg Documented by: Dextrose (Dextrose 50%-Water 25 Gm/50 Ml Disp.Syrin) 0 gm IV X1 PRN; Protocol PRN Reason: Hypoglycemia Docusate Sodium (Docusate Sodium 100 Mg Capsule) 100 mg PO BID PRN PRN PRN Reason: Constipation Famotidine (Famotidine 20 Mg Tablet) 20 mg PO BID [facility] Last Admin: 08/29/20 08:06 Dose: 20 mg Documented by: Gabapentin (Gabapentin 600 Mg Tablet) 600 mg PO TIDCM [facility] Last Admin: 08/29/20 12:26 Dose: 600 mg Documented by: Glucagon (Glucagon 1 Mg/Ml Syringe) 1 mg IM .X1 PRN PRN Reason: Hypoglycemia Sodium Chloride () 250 mls @ 15 mls/hr IV .[id number] PRN PRN Reason: Saline Flush Last Infusion: 08/28/20 18:46 Dose: 0 mls/hr Documented by: Sodium Chloride () 250 mls @ 15 mls/hr IV .[id number] PRN PRN Reason: Additional IVPB Infusion Piperacillin Sod/Tazobactam (Sod 3.375 gm/ Sodium Chloride) 50 mls @ 12.5 mls/hr IV Q8 [facility] Last Admin: 08/29/20 09:25 Dose: 12.5 mls/hr Documented by: Vancomycin IV Pharmacy to Dose (1 ea/ Sodium Chloride) 500 mls @ 250 mls/hr IV X1 PRN; Protocol PRN Reason: Rx to Dose Vancomycin HCl 1,500 mg/ (Sodium Chloride) 530 mls @ 250 mls/hr IV Q12H [facility] Last Infusion: 08/29/20 07:36 Dose: Infused Documented by: Insulin Human Lispro (Insulin Lispro 100 Unit/Ml Insuln.Pen) 0 unit SC ACHS [facility]; Protocol Last Admin: 08/29/20 13:02 Dose: Not Given Documented by: Insulin Human Regular (Insulin U-500 Pen) 150 units SC BREAKFAST [facility] Last Admin: 08/29/20 11:57 Dose: Not Given Documented by: Insulin Human Regular (Insulin U-500 Pen) 160 units SC LUNCH [facility] Last Admin: 08/29/20 13:04 Dose: Not Given Documented by: Insulin Human Regular (Insulin U-500 Pen) 140 units SC DINNER [facility] Lisinopril (Lisinopril 40 Mg Tablet) 40 mg PO DAILY [facility] Last Admin: 08/29/20 08:05 Dose: 40 mg Documented by: Melatonin (Melatonin 3 Mg Tablet) 3 mg PO QHS PRN PRN PRN Reason: INSOMNIA Last Admin: 08/28/20 22:07 Dose: 3 mg Documented by: Nicotine (Nicotine 21 Mg Patch) 21 mg TD DAILY [facility] Last Admin: 08/29/20 08:06 Dose: 21 mg Documented by: Nutritional Formula (Lactose Free) (Glucerna Shake 120 Ml Liquid) 120 ml PO 4X/DAY [facility] Last Admin: 08/29/20 13:05 Dose: Not Given Documented by: Ondansetron HCl (Ondansetron 4 Mg/2 Ml Vial) 4 mg IV Q8H PRN PRN PRN Reason: NAUSEA/VOMITING Oxycodone HCl (Oxycodone 5 Mg Tablet) 5 mg PO Q4H PRN PRN PRN Reason: Pain Score 4-10/10 Last Admin: 08/29/20 12:26 Dose: 5 mg Documented by: Sodium Chloride (0.9% Saline Lock 10 Ml Syringe) 10 - 40 ml IV UD PRN PRN Reason: SALINE FLUSH Last Admin: 08/28/20 21:56 Dose: 20 ml Documented by: Tamsulosin HCl (Tamsulosin Hcl 0.4 Mg Capsule) 0.4 mg PO DAILY@1730 [facility] Last Admin: 08/28/20 21:59 Dose: 0.4 mg Documented by: Assessment/Plan Hospitalist note: I am seeing this patient in conjunction with Monica Barillas. I independently seen and examined the patient. Progress note above, laboratory data and imaging studies reviewed and I concur with above treatment plan. Patient complained of right foot pain but improved. Denied fever chills. His vital signs are stable, afebrile. - Physical Exam General: Alert, Oriented x3, Cooperative, No apparent distress. HEENT: Atraumatic, PERRLA, EOMI. Neck: Supple, No JVD, Negative Carotid Bruits, Trachea Midline, Thyroid Normal. Lungs: Clear to auscultation, Normal air movement, No rhonchi, No wheeze, No rales. Cardiovascular: Regular rate, Regular Rhythm, Normal S1, Normal S2, PMI Normal. Abdomen: Bowel Sounds Present, Soft, Non Tender, Non-Distended, No Hepato-splenomegaly, obese. Extremities: No clubbing, No cyanosis, No edema. Right foot wound, dressed. Skin: No rashes, ulcer/wound Neurological: Cranial nerves are intact, neuro grossly intact Vital Signs are stable. Assessment and plan: #1 acute right foot cellulitis/right fifth metatarsal osteomyelitis: Patient is on IV Zosyn and vancomycin. Wound cultures are pending. Infectious disease consulted. Plan for surgery today. Podiatry medicine on the case. #2 uncontrolled type 2 diabetes mellitus: Hemoglobin A1c was 10.5% on Jan, 2020. Currently, patient is on insulin U500, sliding scale. So far, blood sugar has been under fair control during this hospital stay. #3 other chronic medical problems: Stable, continue current medications as above. This note was generated with [employer] dictation software. It may contain incorrect words, spelling, and punctuation that were not noted in checking the note before signing. Inpatient E&M: 15604 Subs Hosp L2
--- NOTE | 2020-08-29 16:00 | BON_PTH ---
PATIENT: GEN SIM LOC: [facility] U#:[id number] AGE/SX: 65/M ROOM: [facility]324 RE08/28/[address]: Dr. Irene Claudio DPM : [id number] BED: 1 DIS: 09/01/2020 SPEC #: [id number] RECD: 08/30/20 10:57 STATUS: LEELA REQ #: [id number] SERAFIN: 08/29/20 16:[address]: Irene Claudio DEPT: SURGICAL PATHOLOGY RECD BY: Lynette Mancilla ENTERED: 08/30/20 12:18 SP TYPE: Bone OTHR DR: MD Dr. Teo Loya MD Dr. Tai Chi Kwok, MD Tissues: A - Toe, NOS B - Bone of foot, NOS Procedures: Decalcification bone/plaque Surgery Specimen Level IV HEADER OPERATION: Foot infection, fifth toe amputation, fifth metatarsal resection PRE-OP DIAGNOSIS: Cellulitis, chronic ulceration right foot TISSUE SUBMITTED: A - Fifth toe right foot, B - Bone, proximal margin fifth metatarsal, right MICROSCOPIC DIAGNOSIS A. Fifth toe right foot, amputation: Focal ulceration, acute inflammation and granulation tissue reaction. Bone with acute osteomyelitis. B. Proximal margin fifth metatarsal bone, right: Pieces of bone, negative for acute osteomyelitis. SJ:benigno 09/04/20 MICROSCOPIC DESCRIPTION Slides are reviewed. GROSS DESCRIPTION A - Received in fixative is one container labeled with the patient's name and designated fifth toe right foot. The specimen consists of three fragments of dark mora bone. The largest fragment contains a nail and portions of distal toe. The fragments range in size from 2 to 5.5 cm. No distinct mass lesion is identified. Calculating Machine Mechanic sections are submitted after decalcification as follows: 1 - smaller fragments, 2??bony margin of largest fragment, 3 & 4 1 longitudinal section of largest fragment. B - Received in fixative is one container labeled with the patient's name and designated proximal margin fifth metatarsal bone right. The specimen consists of two irregular fragments of bone ranging in size from 0.3 to 1 cm. The fragments are submitted in their entirety in one cassette after decalcification. / AM:benigno 08/30/20 TC:2 CPT: 38079 x2, 13458 x2
--- NOTE | 2020-08-29 16:20 | OP.PCM_ITS ---
Problem List (1) Type 2 diabetes mellitus Status: Chronic (2) Type 2 diabetes mellitus with diabetic polyneuropathy Status: Chronic Qualifiers: (3) Chronic ulcer of right foot with fat layer exposed Status: Chronic (4) Osteomyelitis, unspecified Status: Chronic (5) Difficulty in walking, not elsewhere classified Status: Chronic (6) Osteomyelitis of right foot Status: Suspected Report of Operation Date of Procedure: 08/29/20 Pre-Operative Diagnosis: right foot ulcer. right foot cellulitis. right foot suspected OM. DM2 with neuropathy Post-Operative Diagnosis: same Surgery/Procedure Performed:: right foot 5th digit amputation and 5th metatarsal head resection with bone biopsy Description of Surgical Findings:: hemostasis: no tourniquet was used materials: 3-0 nylon, yari minimal pus within 5 MPJ capsule remaining ulceration measures 0.5x0.7x0.8cm 10cc of 1:1 mix of 1% lidocaine and 0.5% marcaine plain injected counterintelligence agent: none - Surgeon: Danielle Powell DPM, assist: Monica Phipps PGY-1 Type of Anesthesia:: Local MAC Specimen's removed: 5th digit and 5th metatarsal head, proximal 5th metatarsal bone Drains: none Estimated Blood Loss (mL): <60 Description of Procedure: Indications for Procedure: Patient presented to office with worsening right foot wound with cellulitis. He was last seen on previous Friday where graft was applied to right foot. He has history of bilateral foot ulcers with TMA and total contact cast noted to left foot. Patient was sent to [facility] for admission and further care. Imaging was obtained showing OM to proximal phalanx and metatarsa l head of the 5th digit. Leukocytosis and elevated ESR and CRP were noted. Surgical intervention was discussed with the patient to remove the infected bone and try to close the plantar 5th metatarsal head ulceration. Discussed surgical intervention with pt, understood, agreed. The patient had clearance obtained in the chart and cardiology cleared pt as well. The postoperative risks, benefits, alternatives, and complications were explained in detail with the patient. Discussed risk of COVID 19 exposure with the patient, discussed that risk of not going to hospital and having surgery were likely higher than COVID risk. Patient understood and agreed to proceed with treatment course. Description of the procedure: The patient was seen in the preoperative holding area where the chart was reviewed and the patient was examined. A consent form was reviewed and signed by the patient. All risks, benefits, alternatives, and complication including, but not limited to infection, delayed healing, nonhealing, recurrence, possible need for further surgery or amputation were explained to the patient. No guarantees, again, were given to outcome. Consent form was reviewed and signed. The patient was then transported to the OR and placed on the OR table in the supine position. After anesthesia was established an additional 10 cc of .5% jah pl. and 1% lidocaine pl. was injected in infiltrative block of the lateral right foot, 5th metatarsal, in reverse mcadams block fashion. No ankle tourniquet was applied. At this time the right foot and ankle were prepped and draped in the usual sterile fashion. Attention was then directed to the lateral right foot where an approx. 6cm incision encompassing the wound, was circumscribed with a skin scribe. Using a #15 blade the incision was initially carried out. Incision was deepened through the underlying tissue layers via sharp and blunt dissection. Care was taken to clamp and electrocauterize all vessels that were encountered. Some bleeding was noted at this time. The toe was then disarticulated at the 5th MPJ. This along with metatarsal head would be sent to pathology. The incision was carried down to the level of the right 5th metatarsal. A freer and blade was used to separate 5th met from surrounding tissue attachments. Sag saw was introduced to cut the 5th met from dorsal distal to plantar proximal at diaphysis. Site was then flushed with copious amounts of sterile saline utilizing a pulse lavage. Another cut was made at proximal 5th met with same angulation and this was sent as specimen to pathology and microbiology for proximal margin evaluation. Swab cultures were also obtained from the lateral foot wound to micro. It was noted that the left 5th proximal metatarsal remaining, was normal in appearance, with cortex noted to be hard. It was noted that good adequate bleeding was encountered at this level. Any remaining bleeders were cauterized at this time. Yari was also introduced for hemost asis. The wound edges were then reapproximated and sutured closed with 3-0 nylon in deep vertical mattress, trauma and simple suture fashion. The largel wound was able to be largely closed with small central incision deficit remaining measuring 0.4x0.3x0.8cm. Site was then cleaned and dressed with 4x4, abd, kerlix and guerrero wrap. Vascular status was maintained throughout the procedure to remaining foot. The patient was transported from the OR to the PACU with vital signs stable and vascular status intact. Patient admitted back to the floor. - Complications none - Admit VTE Documentation VTE Present on Admission: No - non operative foot has total contact cast present VTE Mechan Device Prophylaxis: None VTE Pharm Prophylaxis ordered?: Yes
[2020-08-29] MEDS: Lidocaine 1% (20 ml mdv) 20 ML Vial (16:30)
[2020-08-29] MEDS: Bupivacaine Mpf 0.5% 30 ML VIAL (16:33)
[2020-08-29] MEDS: Ipratropium/Albuterol Sulfate 3 ML AMPUL.NEB INHALATION (18:04)
--- NOTE | 2020-08-29 18:10 | RAD_ITS ---
HISTORY: POST OP RIGHT FOOT ADDITIONAL HISTORY: None provided. EXAMINATION/TECHNIQUE: XR Foot Min 3 Views Right Number of images including paperwork: 3 COMPARISON: None FINDINGS: BONES: Amputation of the fifth ray has been performed at the mid metatarsal level. No acute fracture. Mineralization appears decreased. Ankle hardware partially visible. Calcaneal enthesophytes. JOINTS: No subluxation. SOFT TISSUES: No distinct foreign body. Soft tissue irregularity/wound noted near the amputation site. Soft tissue edema, most pronounced laterally. RAD/Foot min 3 Views IMPRESSION: Status post amputation of the right fifth ray at the level of the mid metatarsal. at 0617 Reported and signed by: Radha Harris MD Electronically Signed: Radha Harris MD at 6:16 EST Tel , Service support ,
[2020-08-29 18:46] LABS: Bedside Glucose 219 mg/dL (70-110)
[2020-08-29] MEDS: Atorvastatin Calcium 40 MG Tablet PO (21:17)
[2020-08-29] MEDS: MELATONIN 3 MG TABLET PO (21:17)
[2020-08-29] MEDS: Insulin Lispro 100 UNIT/ML INSULN.PEN SC (21:18)
[2020-08-29 21:46] LABS: Bedside Glucose 298 mg/dL (70-110)
[2020-08-30 02:33] VITALS: BP 131/62; PULSE 89; RESP 18; TEMP 36.7; O2SAT 92
[2020-08-30 05:53] LABS: Hematocrit 41.5 % (40-54); Hemoglobin 12.9 g/dL (13.0-16.5); Mean Corp Hgb Conc 31.1 g/dL (32-36); Mean Corpuscular Hgb 28.4 pg (27.0-32.0); Mean Corpuscular Volume 91.2 fL (80-94); Platelet Count 242 K/mm3 (150-450); RBC Distribution Width CV 14.6 % (11.6-14.6); RBC Distribution Width SD 48.7 fl (35.1-43.9); Red Blood Count 4.55 M/mm3 (4.6-6.2); White Blood Count 10.1 K/mm3 (4.4-11.0)
[2020-08-30 06:37] LABS: Anion Gap 3 (5-15); BUN 13 mg/dL (7-18); BUN/Creat Ratio 16.1 RATIO (10-20); Calcium,Total 8.5 mg/dL (8.5-10.1); Chloride 105 mmol/L (98-107); Creatinine, Serum 0.81 mg/dL (0.70-1.30); EST Glomerular Filtration Rate 102 mL/min (>60); Est Glom Filt Rate - Afr Amer 124 mL/min (>60); Estimated Creatinine Clearance 107.12 ml/min; Glucose 249 mg/dL (74-106); Potassium 4.4 mmol/L (3.5-5.1); Sodium Level 135 mmol/L (136-145)
[2020-08-30 06:38] LABS: Vancomycin, Trough Level 8.8 ug/mL (5.0-15.0)
[2020-08-30 06:45] LABS: Bedside Glucose 237 mg/dL (70-110)
[2020-08-30] MEDS: Insulin Lispro 100 UNIT/ML INSULN.PEN SC ×2 (08:28→12:33)
[2020-08-30 08:30] VITALS: BP 158/64; PULSE 79; RESP 18; TEMP 36.6; O2SAT 93
[2020-08-30] MEDS: Juven (unflavored) Packet 1 PACKET PO ×2 (08:30→16:42)
[2020-08-30] MEDS: Glucerna Shake 120 ML LIQUID PO ×4 (08:30→22:03)
[2020-08-30] MEDS: Gabapentin 600 MG Tablet PO ×3 (08:30→16:43)
[2020-08-30] MEDS: Famotidine 20 MG Tablet PO ×2 (08:31→22:02)
[2020-08-30] MEDS: buPROPion (SR) 150 MG Tablet.SA PO ×2 (08:32→22:02)
[2020-08-30] MEDS: Lisinopril 40 MG Tablet PO (08:32)
[2020-08-30] MEDS: oxyCODONE 5 MG Tablet PO ×4 (08:35→22:02)
--- NOTE | 2020-08-30 08:42 | PN_ITS ---
Patient Problems: Active and Suspected Problems (Last Updated 08/28/20 @ 17:[address] Irene Claudio, [facility]) Cellulitis of right lower limb (Acute) Osteomyelitis of right foot (Suspected) Subjective: Chief complaint: Follow-up after consultation for medical management. Patient seen and examined. No acute events overnight. He underwent surgery today for his right foot. He has minimal pain up on movement, pain is well controlled. No other complaints. His vital signs are stable. - Physical Exam Vitals/I&O's: Vital Signs Temp Pulse Resp BP Pulse Ox 98.1 F 89 18 131/62 H 92 08/30/20 02:33 08/30/20 02:33 08/30/20 02:33 08/30/20 02:33 08/30/20 02:33 Oxygen Delivery Method Room Air Weight: 365 lb 4.895 oz Body Mass Index (BMI) 46.9 Finger Stick Blood Glucose 137 Intake and Output for Last 24 Hours 08/28/20 08/29/20 08/30/20 23:59 23:59 23:59 Intake Total 1303.75 / 1303.75 2196.25 / 2196.25 1480 / 1480 Output Total 300 / 300 2050 / 2050 1150 / 1150 Balance 1003.75 / 1003.75 146.25 / 146.25 330 / 330 General: Alert, Oriented x3, Cooperative, No apparent distress HEENT: Atraumatic, PERRLA, EOMI, Normocephalic Oral: Moist Mucosa, No Gingival or Mucosal Lesions/ Ulcerations Neck: Supple, No JVD, Negative Carotid Bruits, Trachea Midline, Thyroid Normal Size and Texture Lungs: Clear to auscultation, Normal air movement, No rhonchi, No wheeze, No rales, Diminished Cardiovascular: Regular rate, Regular Rhythm, Normal S1, Normal S2, PMI Normal Abdomen: Bowel Sounds Present, Soft, Non Tender, Non-Distended, No Hepato- splenomegaly, Obese Extremities: No clubbing, No cyanosis, Edema Skin: No rashes, Ulcer/ Wound Lymphatic: No Cervical, Supraclavicular, or Inguinal Adenopathy Neurological: Cranial nerves II-XII grossly intact, Neuro grossly intact Psych/Mental Status: Normal Affect, Appropriate, Alert and oriented to time, place, person, mood and affect Microbiology Past 72 Hours 08/28/20 23:00 Interface Orders - Final Laboratory Results 08/29/20 11:54: POC Glucose 191 H 08/29/20 18:41: POC Glucose 219 H 08/29/20 21:10: POC Glucose 298 H 08/30/20 05:39: Vancomycin Trough 8.8 08/30/20 05:39: WBC 10.1, RBC 4.55 L, Hgb 12.9 L, Hct 41.5, MCV 91.2, MCH 28.4, MCHC 31.1 L, RDW Std Deviation 48.7 H, RDW Coeff of Fatuma 14.6, Plt Count 242, MPV 10.0 08/30/20 05:39: Sodium 135 L, Potassium 4.4, Chloride 105, Carbon Dioxide 27.0, Anion Gap 3 L, BUN 13, Creatinine 0.81, Estim Creat Clear Calc 107.12, Est GFR (MDRD) Af Amer 124, Est GFR (MDRD) Non-Af 102, BUN/Creatinine Ratio 16.1, Glucose 249 H, Calcium 8.5 08/30/20 06:41: POC Glucose 237 H Current Medications Atorvastatin Calcium (Atorvastatin Calcium 40 Mg Tablet) 40 mg PO QHS [facility] Last Admin: 08/29/20 21:17 Dose: 40 mg Documented by: Bupropion HCl (Bupropion (Sr) 150 Mg Tablet.Sa) 150 mg PO BID [facility] Last Admin: 08/30/20 08:32 Dose: 150 mg Documented by: Dextrose (Dextrose 50%-Water 25 Gm/50 Ml Disp.Syrin) 0 gm IV X1 PRN; Protocol PRN Reason: Hypoglycemia Docusate Sodium (Docusate Sodium 100 Mg Capsule) 100 mg PO BID PRN PRN PRN Reason: Constipation Famotidine (Famotidine 20 Mg Tablet) 20 mg PO BID [facility] Last Admin: 08/30/20 08:31 Dose: 20 mg Documented by: Gabapentin (Gabapentin 600 Mg Tablet) 600 mg PO TIDCM [facility] Last Admin: 08/30/20 08:30 Dose: 600 mg Documented by: Glucagon (Glucagon 1 Mg/Ml Syringe) 1 mg IM .X1 PRN PRN Reason: Hypoglycemia Sodium Chloride () 250 mls @ 15 mls/hr IV .[id number] PRN PRN Reason: Saline Flush Last Infusion: 08/28/20 18:46 Dose: 0 mls/hr Documented by: Sodium Chloride () 250 mls @ 15 mls/hr IV .[id number] PRN PRN Reason: Additional IVPB Infusion Piperacillin Sod/Tazobactam (Sod 3.375 gm/ Sodium Chloride) 50 mls @ 12.5 mls/hr IV Q8 [facility] Last Admin: 08/30/20 08:21 Dose: 12.5 mls/hr Documented by: Vancomycin IV Pharmacy to Dose (1 ea/ Sodium Chloride) 500 mls @ 250 mls/hr IV X1 PRN; Protocol PRN Reason: Rx to Dose Vancomycin HCl 1,500 mg/ (Sodium Chloride) 530 mls @ 250 mls/hr IV Q12H [facility] Last Infusion: 08/30/20 07:44 Dose: Infused Documented by: Insulin Human Lispro (Insulin Lispro 100 Unit/Ml Insuln.Pen) 0 unit SC ACHS [facility]; Protocol Last Admin: 08/30/20 08:28 Dose: 2 units Documented by: Insulin Human Regular (Insulin U-500 Pen) 150 units SC BREAKFAST [facility] Last Admin: 08/30/20 08:30 Dose: 150 u Documented by: Insulin Human Regular (Insulin U-500 Pen) 160 units SC LUNCH [facility] Last Admin: 08/29/20 13:04 Dose: Not Given Documented by: Insulin Human Regular (Insulin U-500 Pen) 140 units SC DINNER [facility] Last Admin: 08/29/20 17:09 Dose: Not Given Documented by: L-Arginine/L-Glutamine/Calcium HMB (Brett (Unflavored) Packet) 1 packet PO BIDCM [facility] Last Admin: 08/30/20 08:30 Dose: 1 packet Documented by: Lisinopril (Lisinopril 40 Mg Tablet) 40 mg PO DAILY [facility] Last Admin: 08/30/20 08:32 Dose: 40 mg Documented by: Melatonin (Melatonin 3 Mg Tablet) 3 mg PO QHS PRN PRN PRN Reason: INSOMNIA Last Admin: 08/29/20 21:17 Dose: 3 mg Documented by: Nicotine (Nicotine 21 Mg Patch) 21 mg TD DAILY [facility] Last Admin: 08/30/20 08:31 Dose: 21 mg Documented by: Nutritional Formula (Lactose Free) (Glucerna Shake 120 Ml Liquid) 120 ml PO 4X/DAY [facility] Last Admin: 08/30/20 08:30 Dose: 120 ml Documented by: Ondansetron HCl (Ondansetron 4 Mg/2 Ml Vial) 4 mg IV Q8H PRN PRN PRN Reason: NAUSEA/VOMITING Oxycodone HCl (Oxycodone 5 Mg Tablet) 5 mg PO Q4H PRN PRN PRN Reason: Pain Score 4-10/10 Last Admin: 08/30/20 08:35 Dose: 5 mg Documented by: Sodium Chloride (0.9% Saline Lock 10 Ml Syringe) 10 - 40 ml IV UD PRN PRN Reason: SALINE FLUSH Last Admin: 08/28/20 21:56 Dose: 20 ml Documented by: Tamsulosin HCl (Tamsulosin Hcl 0.4 Mg Capsule) 0.4 mg PO DAILY@1730 GT Last Admin: 08/29/20 17:09 Dose: Not Given Documented by: Medical Necessity - Tobacco Use Smoking Status: Heavy Smoker (>10/day) Assessment/Plan All Active Problems (Last Updated 08/28/20 @ 17:[address] Irene Claudio, DP) Cellulitis of right lower limb (Acute) This is a 65 years old male patient admitted because of right foot infection by podiatry medicine underwent surgery for suspected right foot osteomyelitis and I am seeing this patient for pre and postoperative medical management. #1 acute right foot cellulitis/suspected right foot/right fifth metatarsal osteomyelitis: Status post right foot fifth digit amputation and right fifth metatarsal head resection with bone biopsy, postoperative day 1. Remained on IV Zosyn and vancomycin. He is on OxyIR as needed for pain. Wound cultures are pending. Podiatry medicine is managing. Infectious disease on the case as well. Plan to continue same treatment. #2 uncontrolled type 2 diabetes mellitus: Blood sugar has been in the range of around 200s, fair control. Hemoglobin A1c was 10.5% on Jan, 2020. Currently, patient is on insulin U500, sliding scale. Plan to continue same treatment. #3 hypertension: Blood pressure stable, continue lisinopril. #4 hyperlipidemia: Continue statins. #5 benign prostatic hypertrophy: Continue Flomax. #6 DVT prophylaxis: Subcu Lovenox. This note was generated with flikdate dictation software. It may contain incorrect words, spelling, and punctuation that were not noted in checking the note before signing. Inpatient E&M: 60966 Subs Hosp L2
--- NOTE | 2020-08-30 09:15 | PCM.RX.CS ---
Consult Pharmacy has been consulted to manage selected antiobiotic: Vancomycin Type of Consult: Follow-up Suspected Infection: Skin/Soft tissue, Osteomyelitis Prior Doses of Antibiotics Received/Current Regimen: Has been on 1500mg iv q12h. Labs: Sodium 135 mmol/L (136-145) L 08/30/20 05:39 Potassium 4.4 mmol/L (3.5-5.1) 08/30/20 05:39 Chloride 105 mmol/L (98-107) 08/30/20 05:39 Carbon Dioxide 27.0 mmol/L (21.0-32.0) 08/30/20 05:39 Anion Gap 3 (5-15) L 08/30/20 05:39 BUN 13 mg/dL (7-18) 08/30/20 05:39 Creatinine 0.81 mg/dL (0.70-1.30) 08/30/20 05:39 Est GFR (MDRD) Af Amer 124 mL/min (>60) 08/30/20 05:39 Est GFR (MDRD) Non-Af 102 mL/min (>60) 08/30/20 05:39 BUN/Creatinine Ratio 16.1 RATIO (10-20) 08/30/20 05:39 Glucose 249 mg/dL (74-106) H 08/30/20 05:39 Vancomycin Trough 8.8 ug/mL (5.0-15.0) 08/30/20 05:39 Microbiology: Microbiology 08/28/20 23:00 Interface Orders - Final Weight used for dosin kg Estimated Creatinine Clearance: >100ml/min Goal Trough: 15-20 mcg/mL Pharmacy Plan for Drug Dosing: Trough level today was 8.8 (goal range 15-20mcg/ml). Renal with Cr 0.81 and CrCl ~107ml/min. Will increase dose to 1500mg iv q8h per protocol. Another trough level ordered for 08.31.20 before 4th dose of this new regimen. Pharmacy Service will continue to monitor and adjust dosing as required. Follow-Up Labs: Trough Vancomycin - 08.31.20 @1330 before 1400 dose
--- NOTE | 2020-08-30 10:50 | CASEMGMT ---
RN HENNY Face to Face with patient for initial transition planning/care coordination assessment. RN HENNY introduced self and role at [facility]. Patient sitting in chair, alert and oriented. Patient willing to participate in assessment and is able to answer all questions appropriately. Care providers, pharmacy, and demographics verified. Patient wishes to discharge home with resumption of HHC with [facility]. Patient states he has no further needs or concerns at this time. CM to follow for discharge planning needs that may arise. PCP: Mitch Specialists: González, driver retraining instructor; , manager of applications development Preferred Pharmacy: [facility] Insurance: Smackages Prescription Benefit: yes Living Will/HPOA: none LNOK: son, sister Living Arrangements: Patient lives alone in a mobile home with 3 steps and railing to enter the home. Per patient he is independent at home. Transportation: [facility] van, [employer] DME/HHC: Patient states he has shower chair, BSC, rollator, knee scooter, cpap, and glucometer at home. Patient states he is active with [facility] for HHC. Disposition Plan: Patient to discharge home with resumption of HHC and follow-up plans in place. Will monitor for need for IV ATBs at discharge and possible placement. Madai GRACIA, RN, CM
[2020-08-30] MEDS: Enoxaparin 40 MG/0.4 ML Syringe SC (11:58)
[2020-08-30 12:05] LABS: Bedside Glucose 216 mg/dL (70-110)
[2020-08-30 14:30] VITALS: BP 136/63; PULSE 82; RESP 18; TEMP 36.6; O2SAT 93
--- NOTE | 2020-08-30 16:32 | PN.ID_ITS ---
Patient Problems: Active and Suspected Problems (Last Updated 08/28/20 @ 17:[address] Irene Claudio, [facility]) Cellulitis of right lower limb (Acute) Osteomyelitis of right foot (Suspected) Subjective: Feeling ok, foot sore, no fever - Physical Exam Vitals/I&O's: Vital Signs Temp Pulse Resp BP Pulse Ox 97.8 F 82 18 136/63 H 93 08/30/20 14:30 08/30/20 14:30 08/30/20 14:30 08/30/20 14:30 08/30/20 14:30 Oxygen Delivery Method Room Air Weight: 165.7 kg Body Mass Index (BMI) 46.9 Finger Stick Blood Glucose 137 Intake and Output for Last 24 Hours 08/28/20 08/29/20 08/30/20 23:59 23:59 23:59 Intake Total 1303.75 / 1303.75 2196.25 / 2196.25 2059 Output Total 300 / 300 2049 Balance 1003.75 / 1003.75 146.25 / 146.25 General: Alert, Cooperative, No apparent distress Lungs: Clear to auscultation, Normal air movement Cardiovascular: Regular rate, Regular Rhythm Abdomen: Soft, Non Tender, Non-Distended Skin: Ulcer/ Wound - foot wrapped Microbiology Past 72 Hours 08/29/20 17:08 Tissue - Aerobic & Anaerobic Swabs Gram Stain - Final 08/29/20 17:08 Tissue - Aerobic & Anaerobic Swabs Wound Culture - Preliminary Gram positive organism 08/29/20 17:10 Bone - Toe Gram Stain - Final 08/28/20 23:00 Interface Orders - Final Laboratory Results 08/29/20 18:41: POC Glucose 219 H 08/29/20 21:10: POC Glucose 298 H 08/30/20 05:39: Vancomycin Trough 8.8 08/30/20 05:39: WBC 10.1, RBC 4.55 L, Hgb 12.9 L, Hct 41.5, MCV 91.2, MCH 28.4, MCHC 31.1 L, RDW Std Deviation 48.7 H, RDW Coeff of Fatuma 14.6, Plt Count 242, MPV 10.0 08/30/20 05:39: Sodium 135 L, Potassium 4.4, Chloride 105, Carbon Dioxide 27.0, Anion Gap 3 L, BUN 13, Creatinine 0.81, Estim Creat Clear Calc 107.12, Est GFR (MDRD) Af Amer 124, Est GFR (MDRD) Non-Af 102, BUN/Creatinine Ratio 16.1, Glucose 249 H, Calcium 8.5 08/30/20 06:41: POC Glucose 237 H 08/30/20 11:51: POC Glucose 216 H Current Medications Atorvastatin Calcium (Atorvastatin Calcium 40 Mg Tablet) 40 mg PO QHS [facility] Last Admin: 08/29/20 21:17 Dose: 40 mg Documented by: Bupropion HCl (Bupropion (Sr) 150 Mg Tablet.Sa) 150 mg PO BID [facility] Last Admin: 08/30/20 08:32 Dose: 150 mg Documented by: Dextrose (Dextrose 50%-Water 25 Gm/50 Ml Disp.Syrin) 0 gm IV X1 PRN; Protocol PRN Reason: Hypoglycemia Docusate Sodium (Docusate Sodium 100 Mg Capsule) 100 mg PO BID PRN PRN PRN Reason: Constipation Enoxaparin Sodium (Enoxaparin 40 Mg/0.4 Ml Syringe) 40 mg SC DAILY [facility] Last Admin: 08/30/20 11:58 Dose: 40 mg Documented by: Famotidine (Famotidine 20 Mg Tablet) 20 mg PO BID [facility] Last Admin: 08/30/20 08:31 Dose: 20 mg Documented by: Gabapentin (Gabapentin 600 Mg Tablet) 600 mg PO TIDCM [facility] Last Admin: 08/30/20 11:58 Dose: 600 mg Documented by: Glucagon (Glucagon 1 Mg/Ml Syringe) 1 mg IM .X1 PRN PRN Reason: Hypoglycemia Sodium Chloride () 250 mls @ 15 mls/hr IV .[id number] PRN PRN Reason: Saline Flush Last Infusion: 08/30/20 12:21 Dose: 15 mls/hr Documented by: Sodium Chloride () 250 mls @ 15 mls/hr IV .[id number] PRN PRN Reason: Additional IVPB Infusion Piperacillin Sod/Tazobactam (Sod 3.375 gm/ Sodium Chloride) 50 mls @ 12.5 mls/hr IV Q8 [facility] Last Infusion: 08/30/20 12:21 Dose: Infused Documented by: Vancomycin IV Pharmacy to Dose (1 ea/ Sodium Chloride) 500 mls @ 250 mls/hr IV X1 PRN; Protocol PRN Reason: Rx to Dose Vancomycin HCl 1,500 mg/ (Sodium Chloride) 530 mls @ 250 mls/hr IV Q8H [facility] Last Infusion: 08/30/20 16:13 Dose: Infused Documented by: Insulin Human Lispro (Insulin Lispro 100 Unit/Ml Insuln.Pen) 0 unit SC ACHS [facility]; Protocol Last Admin: 08/30/20 12:33 Dose: 2 units Documented by: Insulin Human Regular (Insulin U-500 Pen) 150 units SC BREAKFAST [facility] Last Admin: 08/30/20 08:30 Dose: 150 u Documented by: Insulin Human Regular (Insulin U-500 Pen) 160 units SC LUNCH [facility] Last Admin: 08/30/20 12:33 Dose: 160 u Documented by: Insulin Human Regular (Insulin U-500 Pen) 140 units SC DINNER [facility] [place] Last Admin: 08/29/20 17:09 Dose: Not Given Documented by: L-Arginine/L-Glutamine/Calcium HMB (Brett (Unflavored) Packet) 1 packet PO BIDCM [facility] Last Admin: 08/30/20 08:30 Dose: 1 packet Documented by: Lisinopril (Lisinopril 40 Mg Tablet) 40 mg PO DAILY [facility] Last Admin: 08/30/20 08:32 Dose: 40 mg Documented by: Melatonin (Melatonin 3 Mg Tablet) 3 mg PO QHS PRN PRN PRN Reason: INSOMNIA Last Admin: 08/29/20 21:17 Dose: 3 mg Documented by: Nicotine (Nicotine 21 Mg Patch) 21 mg TD DAILY [facility] [place] Last Admin: 08/30/20 08:31 Dose: 21 mg Documented by: Nutritional Formula (Lactose Free) (Glucerna Shake 120 Ml Liquid) 120 ml PO 4X/DAY [facility] Last Admin: 08/30/20 12:40 Dose: 120 ml Documented by: Ondansetron HCl (Ondansetron 4 Mg/2 Ml Vial) 4 mg IV Q8H PRN PRN PRN Reason: NAUSEA/VOMITING Oxycodone HCl (Oxycodone 5 Mg Tablet) 5 mg PO Q4H PRN PRN PRN Reason: Pain Score 4-10/10 Last Admin: 08/30/20 12:35 Dose: 5 mg Documented by: Sodium Chloride (0.9% Saline Lock 10 Ml Syringe) 10 - 40 ml IV UD PRN PRN Reason: SALINE FLUSH Last Admin: 08/28/20 21:56 Dose: 20 ml Documented by: Tamsulosin HCl (Tamsulosin Hcl 0.4 Mg Capsule) 0.4 mg PO DAILY@1730 GT Last Admin: 08/29/20 17:09 Dose: Not Given Documented by: Medical Necessity - Tobacco Use Smoking Status: Heavy Smoker (>10/day) Route of nutrition/ use of supplements: [] Nutritional Intake: [] IV Site: [] Dyer Catheter: [] - Assessment/Plan Antibiotics: [] Assessment/Plan: [] Active and Suspected Problems (Last Updated 08/28/20 @ 17:[address] Irene Claudio, DPM) Cellulitis of right lower limb (Acute) Osteomyelitis of right foot (Suspected) R foot osteo with uncontrolled DM - recent cxs with mrsa, enterococcus, klebs, strep mitis/oralis, and diphtheroids. Cont with vanc/zosyn. OR 08/[address] Powell. Will follow
[2020-08-30] MEDS: Tamsulosin HCl 0.4 MG Capsule PO (16:43)
--- NOTE | 2020-08-30 19:57 | PCM.PROGNOTE ---
Patient Problems: Active and Suspected Problems (Last Updated 08/28/20 @ 17:[address] Irene Claudio, [facility]) Cellulitis of right lower limb (Acute) Osteomyelitis of right foot (Suspected) Subjective: Patient seen and examined in bedside chair resting comfortably. Patient denies pain in operative foot. He has no new complaints. Patient denies N/F/V/C/CP/SOB - Physical Exam Vitals/I&O's: Vital Signs Temp Pulse Resp BP Pulse Ox 97.8 F 82 18 136/63 H 93 08/30/20 14:30 08/30/20 14:30 08/30/20 14:30 08/30/20 14:30 08/30/20 14:30 Oxygen Delivery Method Room Air Weight: 165.7 kg Body Mass Index (BMI) 46.9 Finger Stick Blood Glucose 137 Intake and Output for Last 24 Hours 08/28/20 08/29/20 08/30/20 23:59 23:59 23:59 Intake Total 1303.75 / 1303.75 2196.25 / 2196.25 2131.25 / 2131.25 Output Total 300 / 300 2050 / 2050 2650 / 2650 Balance 1003.75 / 1003.75 146.25 / 146.25 -518.75 / -518.75 General: Alert, Oriented x3 HEENT: Atraumatic Extremities: No clubbing, No cyanosis, Capillary Refill Less than 3 Seconds, No Calf Tenderness, Edema - right foot, Peripheral Pulses Normal, - - total contact cast left lower extremity Skin: Ulcer/ Wound - small ulceration noted to central incision lateral right foot, Incision - lateral right foot, mild maceration noted centrally, sutures intact, skin well coapted, known mild central ulceration, skin edges warm, mild [id number] drainage noted Musculoskeletal: No Tenderness to Palpation of Joints or Extremities Neurological: - - diminished epicritic senation consistent with patient's neuropathy Psych/Mental Status: Normal Affect, Appropriate Microbiology Past 72 Hours 08/29/20 17:08 Tissue - Aerobic & Anaerobic Swabs Gram Stain - Final 08/29/20 17:08 Tissue - Aerobic & Anaerobic Swabs Wound Culture - Preliminary Gram positive organism 08/29/20 17:10 Bone - Toe Gram Stain - Final 08/28/20 23:00 Interface Orders - Final Laboratory Results 08/29/20 21:10: POC Glucose 298 H 08/30/20 05:39: Vancomycin Trough 8.8 08/30/20 05:39: WBC 10.1, RBC 4.55 L, Hgb 12.9 L, Hct 41.5, MCV 91.2, MCH 28.4, MCHC 31.1 L, RDW Std Deviation 48.7 H, RDW Coeff of Fatuma 14.6, Plt Count 242, MPV 10.0 08/30/20 05:39: Sodium 135 L, Potassium 4.4, Chloride 105, Carbon Dioxide 27.0, Anion Gap 3 L, BUN 13, Creatinine 0.81, Estim Creat Clear Calc 107.12, Est GFR (MDRD) Af Amer 124, Est GFR (MDRD) Non-Af 102, BUN/Creatinine Ratio 16.1, Glucose 249 H, Calcium 8.5 08/30/20 06:41: POC Glucose 237 H 08/30/20 11:51: POC Glucose 216 H Current Medications Atorvastatin Calcium (Atorvastatin Calcium 40 Mg Tablet) 40 mg PO QHS [facility] Last Admin: 08/29/20 21:17 Dose: 40 mg Documented by: Bupropion HCl (Bupropion (Sr) 150 Mg Tablet.Sa) 150 mg PO BID [facility] Last Admin: 08/30/20 08:32 Dose: 150 mg Documented by: Dextrose (Dextrose 50%-Water 25 Gm/50 Ml Disp.Syrin) 0 gm IV X1 PRN; Protocol PRN Reason: Hypoglycemia Docusate Sodium (Docusate Sodium 100 Mg Capsule) 100 mg PO BID PRN PRN PRN Reason: Constipation Enoxaparin Sodium (Enoxaparin 40 Mg/0.4 Ml Syringe) 40 mg SC DAILY [facility] Last Admin: 08/30/20 11:58 Dose: 40 mg Documented by: Famotidine (Famotidine 20 Mg Tablet) 20 mg PO BID [facility] Last Admin: 08/30/20 08:31 Dose: 20 mg Documented by: Gabapentin (Gabapentin 600 Mg Tablet) 600 mg PO TIDCM [facility] Last Admin: 08/30/20 16:43 Dose: 600 mg Documented by: Glucagon (Glucagon 1 Mg/Ml Syringe) 1 mg IM .X1 PRN PRN Reason: Hypoglycemia Sodium Chloride () 250 mls @ 15 mls/hr IV .[id number] PRN PRN Reason: Saline Flush Last Infusion: 08/30/20 17:06 Dose: 0 mls/hr Documented by: Sodium Chloride () 250 mls @ 15 mls/hr IV .[id number] PRN PRN Reason: Additional IVPB Infusion Piperacillin Sod/Tazobactam (Sod 3.375 gm/ Sodium Chloride) 50 mls @ 12.5 mls/hr IV Q8 [facility] Last Admin: 08/30/20 16:37 Dose: 12.5 mls/hr Documented by: Vancomycin IV Pharmacy to Dose (1 ea/ Sodium Chloride) 500 mls @ 250 mls/hr IV X1 PRN; Protocol PRN Reason: Rx to Dose Vancomycin HCl 1,500 mg/ (Sodium Chloride) 530 mls @ 250 mls/hr IV Q8H [facility] Last Infusion: 08/30/20 16:13 Dose: Infused Documented by: Insulin Human Lispro (Insulin Lispro 100 Unit/Ml Insuln.Pen) 0 unit SC ACHS [facility]; Protocol Last Admin: 08/30/20 16:43 Dose: Not Given Documented by: Insulin Human Regular (Insulin U-500 Pen) 150 units SC BREAKFAST [facility] Last Admin: 08/30/20 08:30 Dose: 150 u Documented by: Insulin Human Regular (Insulin U-500 Pen) 160 units SC LUNCH [facility] Last Admin: 08/30/20 12:33 Dose: 160 u Documented by: Insulin Human Regular (Insulin U-500 Pen) 140 units SC DINNER [facility] Last Admin: 08/30/20 16:44 Dose: 140 u Documented by: L-Arginine/L-Glutamine/Calcium HMB (Brett (Unflavored) Packet) 1 packet PO BIDCM [facility] Last Admin: 08/30/20 16:42 Dose: 1 packet Documented by: Lisinopril (Lisinopril 40 Mg Tablet) 40 mg PO DAILY [facility] Last Admin: 08/30/20 08:32 Dose: 40 mg Documented by: Melatonin (Melatonin 3 Mg Tablet) 3 mg PO QHS PRN PRN PRN Reason: INSOMNIA Last Admin: 08/29/20 21:17 Dose: 3 mg Documented by: Nicotine (Nicotine 21 Mg Patch) 21 mg TD DAILY [facility] Last Admin: 08/30/20 08:31 Dose: 21 mg Documented by: Nutritional Formula (Lactose Free) (Glucerna Shake 120 Ml Liquid) 120 ml PO 4X/DAY [facility] Last Admin: 08/30/20 16:43 Dose: 120 ml Documented by: Ondansetron HCl (Ondansetron 4 Mg/2 Ml Vial) 4 mg IV Q8H PRN PRN PRN Reason: NAUSEA/VOMITING Oxycodone HCl (Oxycodone 5 Mg Tablet) 5 mg PO Q4H PRN PRN PRN Reason: Pain Score 4-10/10 Last Admin: 08/30/20 16:49 Dose: 5 mg Documented by: Sodium Chloride (0.9% Saline Lock 10 Ml Syringe) 10 - 40 ml IV UD PRN PRN Reason: SALINE FLUSH Last Admin: 08/28/20 21:56 Dose: 20 ml Documented by: Tamsulosin HCl (Tamsulosin Hcl 0.4 Mg Capsule) 0.4 mg PO DAILY@1730 [facility] Last Admin: 08/30/20 16:43 Dose: 0.4 mg Documented by: Medical Necessity - Tobacco Use Smoking Status: Heavy Smoker (>10/day) Assessment/Plan All Active Problems (Last Updated 08/28/20 @ 17:[address] Irene Claudio, [facility]) Cellulitis of right lower limb (Acute) Right foot infection Osteomyelitis fifth metatarsal is suspected Uncontrolled diabetes with neuropathy bilateral foot ulcers Other comorbidities include tobacco abuse, obesity, sleep apnea, hyperlipidemia, hypertension, prior stage II kidney disease, BPH Patient seen and examined Patient has no pain in surgical foot Dressing changed today with mild sanginous drainage noted. Dressed with betadine, adaptic, 4x4, kerlix guerrero Cultures from OR are still pending. Follow culture results. Cultures from office growing methacillin resistiant staph aureus, kelbsiella, enterobacter, strepp mitis, corynebacterium Reviewed post op XR White blood cell count is within normal limits today was elevated upon admission PVRs from April 2020 were reviewed showing an KANDI of 0.94 which should show adequate blood flow for healing after surgery Patient is noted to have a total contact cast on his left lower extremity for foot ulceration, will remove tomorrow Discussed with the patient the importance of nonweightbearing to the surgical site but due to total contact cast on the opposite side realize that this is not feasible so recommend heel weightbearing Continue IV antibiotics Follow ID recommendations PT consulted Will need to adjust his HHC since surgery prior to DC Hospitalist will be consulted for medical management and care will be greatly appreciated including diabetes management, medication review, and IV fluid recommendations. The case was discussed with Dr. Linder. Please not hesitate to call if you have any questions.
[2020-08-30 21:50] VITALS: BP 141/83; PULSE 83; RESP 18; TEMP 36.6; O2SAT 92
[2020-08-30] MEDS: Atorvastatin Calcium 40 MG Tablet PO (22:02)
[2020-08-30] MEDS: MELATONIN 3 MG TABLET PO (22:02)
[2020-08-30 22:11] LABS: Bedside Glucose 86 mg/dL (70-110)
[2020-08-31 03:11] VITALS: BP 152/55; PULSE 79; RESP 18; TEMP 36.6; O2SAT 92
[2020-08-31 04:21] LABS: Bedside Glucose 125 mg/dL (70-110)
[2020-08-31 07:36] LABS: Bedside Glucose 62 mg/dL (70-110)
[2020-08-31 07:36] LABS: Bedside Glucose 109 mg/dL (70-110)
[2020-08-31] MEDS: oxyCODONE 5 MG Tablet PO ×3 (07:44→17:34)
[2020-08-31 07:53] VITALS: BP 146/60; PULSE 76; RESP 18; TEMP 36.6; O2SAT 94
--- NOTE | 2020-08-31 08:32 | PN_ITS ---
Patient Problems: Active and Suspected Problems (Last Updated 08/28/20 @ 17:[address] Irene Claudio, [facility]) Cellulitis of right lower limb (Acute) Osteomyelitis of right foot (Suspected) Subjective: Chief complaint: Follow-up after consultation for medical management. Patient seen and examined. No acute events overnight. He complained of mild dull aching pain of the left foot. Denied fever or chills. No other complaints. His vital signs are stable. - Physical Exam Vitals/I&O's: Vital Signs Temp Pulse Resp BP Pulse Ox 97.8 F 76 18 146/60 H 94 08/31/20 07:53 08/31/20 07:53 08/31/20 07:53 08/31/20 07:53 08/31/20 07:53 Oxygen Delivery Method Room Air Weight: 365 lb 4.895 oz Body Mass Index (BMI) 46.9 Finger Stick Blood Glucose 137 Intake and Output for Last 24 Hours 08/29/20 08/30/20 08/31/20 23:59 23:59 23:59 Intake Total 2196.25 / 2196.25 2681.25 / 2681.25 1080 / 1080 Output Total 0 / 0 3200 / 3200 700 / 700 Balance 146.25 / 146.25 -518.75 / -518.75 380 / 380 General: Alert, Oriented x3, Cooperative, No apparent distress HEENT: Atraumatic, PERRLA, EOMI, Normocephalic Oral: Moist Mucosa, No Gingival or Mucosal Lesions/ Ulcerations Neck: Supple, No JVD, Negative Carotid Bruits, Trachea Midline, Thyroid Normal Size and Texture Lungs: Clear to auscultation, Normal air movement, No rhonchi, No wheeze, No rales, Diminished Cardiovascular: Regular rate, Regular Rhythm, Normal S1, Normal S2, No murmurs, PMI Normal Abdomen: Bowel Sounds Present, Soft, Non Tender, Non-Distended, No Hepato- splenomegaly, Obese Extremities: No clubbing, No cyanosis, Edema Skin: No rashes, Ulcer/ Wound Lymphatic: No Cervical, Supraclavicular, or Inguinal Adenopathy Neurological: Cranial nerves II-XII grossly intact, Neuro grossly intact Psych/Mental Status: Normal Affect, Appropriate, Alert and oriented to time, place, person, mood and affect Microbiology Past 72 Hours 08/29/20 17:08 Tissue - Aerobic & Anaerobic Swabs Gram Stain - Final 08/29/20 17:08 Tissue - Aerobic & Anaerobic Swabs Wound Culture - Preliminary Gram positive organism 08/29/20 17:10 Bone - Toe Gram Stain - Final 08/28/20 23:00 Interface Orders - Final Laboratory Results 08/30/20 11:51: POC Glucose 216 H 08/30/20 16:41: POC Glucose 125 H 08/30/20 21:57: POC Glucose 86 08/31/20 06:45: POC Glucose 62 L 08/31/20 07:28: POC Glucose 109 Current Medications Atorvastatin Calcium (Atorvastatin Calcium 40 Mg Tablet) 40 mg PO QHS [facility] Last Admin: 08/30/20 22:02 Dose: 40 mg Documented by: Bupropion HCl (Bupropion (Sr) 150 Mg Tablet.Sa) 150 mg PO BID [facility] Last Admin: 08/30/20 22:02 Dose: 150 mg Documented by: Dextrose (Dextrose 50%-Water 25 Gm/50 Ml Disp.Syrin) 0 gm IV X1 PRN; Protocol PRN Reason: Hypoglycemia Docusate Sodium (Docusate Sodium 100 Mg Capsule) 100 mg PO BID PRN PRN PRN Reason: Constipation Enoxaparin Sodium (Enoxaparin 40 Mg/0.4 Ml Syringe) 40 mg SC DAILY [facility] Last Admin: 08/30/20 11:58 Dose: 40 mg Documented by: Famotidine (Famotidine 20 Mg Tablet) 20 mg PO BID [facility] Last Admin: 08/30/20 22:02 Dose: 20 mg Documented by: Gabapentin (Gabapentin 600 Mg Tablet) 600 mg PO TIDCM [facility] Last Admin: 08/30/20 16:43 Dose: 600 mg Documented by: Glucagon (Glucagon 1 Mg/Ml Syringe) 1 mg IM .X1 PRN PRN Reason: Hypoglycemia Sodium Chloride () 250 mls @ 15 mls/hr IV .[id number] PRN PRN Reason: Saline Flush Last Infusion: 08/31/20 00:26 Dose: 0 mls/hr Documented by: Sodium Chloride () 250 mls @ 15 mls/hr IV .[id number] PRN PRN Reason: Additional IVPB Infusion Piperacillin Sod/Tazobactam (Sod 3.375 gm/ Sodium Chloride) 50 mls @ 12.5 mls/hr IV Q8 [facility] Last Infusion: 08/31/20 05:00 Dose: Infused Documented by: Vancomycin IV Pharmacy to Dose (1 ea/ Sodium Chloride) 500 mls @ 250 mls/hr IV X1 PRN; Protocol PRN Reason: Rx to Dose Vancomycin HCl 1,500 mg/ (Sodium Chloride) 530 mls @ 250 mls/hr IV Q8H [facility] Last Admin: 08/31/20 05:26 Dose: 250 mls/hr Documented by: Insulin Human Lispro (Insulin Lispro 100 Unit/Ml Insuln.Pen) 0 unit SC ACHS [facility]; Protocol Last Admin: 08/31/20 07:46 Dose: Not Given Documented by: Insulin Human Regular (Insulin U-500 Pen) 150 units SC BREAKFAST [facility] Last Admin: 08/30/20 08:30 Dose: 150 u Documented by: Insulin Human Regular (Insulin U-500 Pen) 160 units SC LUNCH [facility] Last Admin: 08/30/20 12:33 Dose: 160 u Documented by: Insulin Human Regular (Insulin U-500 Pen) 140 units SC DINNER [facility] Last Admin: 08/30/20 16:44 Dose: 140 u Documented by: L-Arginine/L-Glutamine/Calcium HMB (Brett (Unflavored) Packet) 1 packet PO BIDCM [facility] Last Admin: 08/30/20 16:42 Dose: 1 packet Documented by: Lisinopril (Lisinopril 40 Mg Tablet) 40 mg PO DAILY [facility] Last Admin: 08/30/20 08:32 Dose: 40 mg Documented by: Melatonin (Melatonin 3 Mg Tablet) 3 mg PO QHS PRN PRN PRN Reason: INSOMNIA Last Admin: 08/30/20 22:02 Dose: 3 mg Documented by: Nicotine (Nicotine 21 Mg Patch) 21 mg TD DAILY [facility] Last Admin: 08/30/20 08:31 Dose: 21 mg Documented by: Nutritional Formula (Lactose Free) (Glucerna Shake 120 Ml Liquid) 120 ml PO 4X/DAY [facility] Last Admin: 08/30/20 22:03 Dose: 120 ml Documented by: Ondansetron HCl (Ondansetron 4 Mg/2 Ml Vial) 4 mg IV Q8H PRN PRN PRN Reason: NAUSEA/VOMITING Oxycodone HCl (Oxycodone 5 Mg Tablet) 5 mg PO Q4H PRN PRN PRN Reason: Pain Score 4-10/10 Last Admin: 08/31/20 07:44 Dose: 5 mg Documented by: Sodium Chloride (0.9% Saline Lock 10 Ml Syringe) 10 - 40 ml IV UD PRN PRN Reason: SALINE FLUSH Last Admin: 08/28/20 21:56 Dose: 20 ml Documented by: Tamsulosin HCl (Tamsulosin Hcl 0.4 Mg Capsule) 0.4 mg PO DAILY@1730 [facility] Last Admin: 08/30/20 16:43 Dose: 0.4 mg Documented by: Medical Necessity - Tobacco Use Smoking Status: Heavy Smoker (>10/day) Assessment/Plan All Active Problems (Last Updated 08/28/20 @ 17:[address] Irene Claudio, DPM) Cellulitis of right lower limb (Acute) This is a 65 years old male patient admitted because of right foot infection by podiatry medicine underwent surgery for suspected right foot osteomyelitis and I am seeing this patient for pre and postoperative medical management. #1 acute right foot cellulitis/suspected right foot/right fifth metatarsal osteomyelitis: Status post right foot fifth digit amputation and right fifth metatarsal head resection with bone biopsy, postoperative day 2. Remained on IV Zosyn and vancomycin. He is on OxyIR as needed for pain. Wound cultures are pending. Podiatry medicine is managing. Infectious disease on the case as well. Plan to continue same treatment. #2 uncontrolled type 2 diabetes mellitus: Blood sugar has been under fair control during this admission. Hemoglobin A1c was 10.5% on Jan, 2020. Currently, patient is on insulin U500, sliding scale. Plan to continue same treatment. #3 hypertension: Blood pressure stable, continue lisinopril. #4 hyperlipidemia: Continue statins. #5 benign prostatic hypertrophy: Continue Flomax. #6 DVT prophylaxis: Subcu Lovenox. This note was generated with [employer] dictation software. It may contain incorrect words, spelling, and punctuation that were not noted in checking the note before signing. Inpatient E&M: 34530 Subs Hosp L2
[2020-08-31] MEDS: Juven (unflavored) Packet 1 PACKET PO ×2 (09:19→17:28)
[2020-08-31] MEDS: Famotidine 20 MG Tablet PO ×2 (09:19→22:39)
[2020-08-31] MEDS: Gabapentin 600 MG Tablet PO ×3 (09:19→17:28)
[2020-08-31] MEDS: Glucerna Shake 120 ML LIQUID PO ×3 (09:19→22:39)
[2020-08-31] MEDS: Enoxaparin 40 MG/0.4 ML Syringe SC (09:19)
[2020-08-31] MEDS: Lisinopril 40 MG Tablet PO (09:20)
[2020-08-31] MEDS: buPROPion (SR) 150 MG Tablet.SA PO ×2 (09:20→22:39)
--- NOTE | 2020-08-31 11:12 | PN.ID_ITS ---
Patient Problems: Active and Suspected Problems (Last Updated 08/28/20 @ 17:[address] Irene Claudio, [facility]) Cellulitis of right lower limb (Acute) Osteomyelitis of right foot (Suspected) Subjective: Feeling ok, no fever, no n/v/d. - Physical Exam Vitals/I&O's: Vital Signs Temp Pulse Resp BP Pulse Ox 97.8 F 76 18 146/60 H 94 08/31/20 07:53 08/31/20 07:53 08/31/20 07:53 08/31/20 07:53 08/31/20 07:53 Oxygen Delivery Method Room Air Weight: 165.7 kg Body Mass Index (BMI) 46.9 Finger Stick Blood Glucose 137 Intake and Output for Last 24 Hours 08/29/20 08/30/20 08/31/20 23:59 23:59 23:59 Intake Total 2196.25 / 2196.25 2681.25 / 2681.25 1610 / 1610 Output Total 2049 / 2049 3200 / 3200 700 / 700 Balance 146.25 / 146.25 -518.75 / -518.75 910 / 910 General: Alert, Cooperative, No apparent distress Lungs: Clear to auscultation, Normal air movement Cardiovascular: Regular rate, Regular Rhythm Abdomen: Soft, Non Tender, Non-Distended Skin: Ulcer/ Wound - foot wrapped Microbiology Past 72 Hours 08/29/20 17:08 Tissue - Aerobic & Anaerobic Swabs Gram Stain - Final 08/29/20 17:08 Tissue - Aerobic & Anaerobic Swabs Wound Culture - Preliminary Staphylococcus aureus Staphylococcus species Gram positive organism 08/29/20 17:10 Bone - Toe Gram Stain - Final 08/29/20 17:10 Bone - Toe Wound Culture - Preliminary Staphylococcus aureus 08/28/20 23:00 Interface Orders - Final Laboratory Results 08/30/20 11:51: POC Glucose 216 H 08/30/20 16:41: POC Glucose 125 H 08/30/20 21:57: POC Glucose 86 08/31/20 06:45: POC Glucose 62 L 08/31/20 07:28: POC Glucose 109 Current Medications Acetaminophen (Acetaminophen 325 Mg Tablet) 650 mg PO Q8H PRN PRN PRN Reason: Pain 1-10 or Fever Atorvastatin Calcium (Atorvastatin Calcium 40 Mg Tablet) 40 mg PO QHS [facility] Last Admin: 08/30/20 22:02 Dose: 40 mg Documented by: Bupropion HCl (Bupropion (Sr) 150 Mg Tablet.Sa) 150 mg PO BID [facility] Last Admin: 08/31/20 09:20 Dose: 150 mg Documented by: Dextrose (Dextrose 50%-Water 25 Gm/50 Ml Disp.Syrin) 0 gm IV X1 PRN; Protocol PRN Reason: Hypoglycemia Docusate Sodium (Docusate Sodium 100 Mg Capsule) 100 mg PO BID PRN PRN PRN Reason: Constipation Enoxaparin Sodium (Enoxaparin 40 Mg/0.4 Ml Syringe) 40 mg SC DAILY [facility] Last Admin: 08/31/20 09:19 Dose: 40 mg Documented by: Famotidine (Famotidine 20 Mg Tablet) 20 mg PO BID [facility] Last Admin: 08/31/20 09:19 Dose: 20 mg Documented by: Gabapentin (Gabapentin 600 Mg Tablet) 600 mg PO TIDCM [facility] Last Admin: 08/31/20 09:19 Dose: 600 mg Documented by: Glucagon (Glucagon 1 Mg/Ml Syringe) 1 mg IM .X1 PRN PRN Reason: Hypoglycemia Sodium Chloride () 250 mls @ 15 mls/hr IV .[id number] PRN PRN Reason: Saline Flush Last Infusion: 08/31/20 00:26 Dose: 0 mls/hr Documented by: Sodium Chloride () 250 mls @ 15 mls/hr IV .[id number] PRN PRN Reason: Additional IVPB Infusion Piperacillin Sod/Tazobactam (Sod 3.375 gm/ Sodium Chloride) 50 mls @ 12.5 mls/hr IV Q8 [facility] Last Admin: 08/31/20 09:19 Dose: 12.5 mls/hr Documented by: Vancomycin IV Pharmacy to Dose (1 ea/ Sodium Chloride) 500 mls @ 250 mls/hr IV X1 PRN; Protocol PRN Reason: Rx to Dose Vancomycin HCl 1,500 mg/ (Sodium Chloride) 530 mls @ 250 mls/hr IV Q8H [facility] Last Infusion: 08/31/20 07:50 Dose: Infused Documented by: Insulin Human Lispro (Insulin Lispro 100 Unit/Ml Insuln.Pen) 0 unit SC ACHS [facility]; Protocol Last Admin: 08/31/20 07:46 Dose: Not Given Documented by: Insulin Human Regular (Insulin U-500 Pen) 150 units SC BREAKFAST [facility] Last Admin: 08/31/20 08:40 Dose: Not Given Documented by: Insulin Human Regular (Insulin U-500 Pen) 160 units SC LUNCH [facility] Last Admin: 08/30/20 12:33 Dose: 160 u Documented by: Insulin Human Regular (Insulin U-500 Pen) 140 units SC DINNER [facility] Last Admin: 08/30/20 16:44 Dose: 140 u Documented by: L-Arginine/L-Glutamine/Calcium HMB (Brett (Unflavored) Packet) 1 packet PO BIDCM [facility] Last Admin: 08/31/20 09:19 Dose: 1 packet Documented by: Lisinopril (Lisinopril 40 Mg Tablet) 40 mg PO DAILY [facility] Last Admin: 08/31/20 09:20 Dose: 40 mg Documented by: Melatonin (Melatonin 3 Mg Tablet) 3 mg PO QHS PRN PRN PRN Reason: INSOMNIA Last Admin: 08/30/20 22:02 Dose: 3 mg Documented by: Nicotine (Nicotine 21 Mg Patch) 21 mg TD DAILY [facility] Last Admin: 08/31/20 09:19 Dose: 21 mg Documented by: Nutritional Formula (Lactose Free) (Glucerna Shake 120 Ml Liquid) 120 ml PO 4X/DAY [facility] Last Admin: 08/31/20 09:19 Dose: 120 ml Documented by: Ondansetron HCl (Ondansetron 4 Mg/2 Ml Vial) 4 mg IV Q8H PRN PRN PRN Reason: NAUSEA/VOMITING Oxycodone HCl (Oxycodone 5 Mg Tablet) 5 mg PO Q4H PRN PRN PRN Reason: Pain Score 4-10/10 Last Admin: 08/31/20 07:44 Dose: 5 mg Documented by: Sodium Chloride (0.9% Saline Lock 10 Ml Syringe) 10 - 40 ml IV UD PRN PRN Reason: SALINE FLUSH Last Admin: 08/28/20 21:56 Dose: 20 ml Documented by: Tamsulosin HCl (Tamsulosin Hcl 0.4 Mg Capsule) 0.4 mg PO DAILY@1730 [facility] Last Admin: 08/30/20 16:43 Dose: 0.4 mg Documented by: Medical Necessity - Tobacco Use Smoking Status: Heavy Smoker (>10/day) Route of nutrition/ use of supplements: [] Nutritional Intake: [] IV Site: [] Dyer Catheter: [] - Assessment/Plan Antibiotics: [] Assessment/Plan: [] Active and Suspected Problems (Last Updated 08/28/20 @ 17:[address] Irene Claudio, [facility]) Cellulitis of right lower limb (Acute) Osteomyelitis of right foot (Suspected) R foot osteo with uncontrolled DM - recent cxs with mrsa, enterococcus, klebs, strep mitis/oralis, and diphtheroids. Cont with vanc/zosyn. OR 08/[address] Powell. Will order picc. Plan at this point will be 6 weeks iv vanc/erta, stop date 10/10/20, weekly bmp, cbc, esr, LFT, and vanc trough. Wrote rx, d/w case reviewer. will need one time dose of erta here prior to discharge. Will follow
[2020-08-31 11:35] LABS: Bedside Glucose 204 mg/dL (70-110)
--- NOTE | 2020-08-31 11:45 | CASEMGMT ---
LAURIE INMAN in to discuss discharge planning with patient. Scripts for IV ATBs received from ID, Vancomycin and Ertapenem. LAURIE INMAN discussed potential cost with patient. Patient states he would like to go home and his sister or niece could help with IV ATBs. Patient states he would want [facility] to come daily for dressing changes. LAURIE INMAN explained that [facility] may not be able to do dressing changes daily and the patient may need to consider SNF at discharge. Patient would like CM to send referral to [facility] to find out financials. CM will updated [facility] with discharge needs. CM will continue to follow this patient and plan for a safe discharge.
--- NOTE | 2020-08-31 11:51 | PCM.PROGNOTE ---
Patient Problems: Active and Suspected Problems (Last Updated 08/28/20 @ 17:[address] Irene Claudio, [facility]) Cellulitis of right lower limb (Acute) Osteomyelitis of right foot (Suspected) Subjective: Patient seen and examined bedside. Patient states that he has had some phantom limb pain. He denies any nausea fever vomiting chills chest pain shortness of breath. - Physical Exam Vitals/I&O's: Vital Signs Temp Pulse Resp BP Pulse Ox 97.8 F 76 18 146/60 H 94 08/31/20 07:53 08/31/20 07:53 08/31/20 07:53 08/31/20 07:53 08/31/20 07:53 Oxygen Delivery Method Room Air Weight: 165.7 kg Body Mass Index (BMI) 46.9 Finger Stick Blood Glucose 137 Intake and Output for Last 24 Hours 08/29/20 08/30/20 08/31/20 23:59 23:59 23:59 Intake Total 2196.25 / 2196.25 2681.25 / 2681.25 1610 / 1610 Output Total 2049 / 2049 3200 / 3200 700 / 700 Balance 146.25 / 146.25 -518.75 / -518.75 910 / 910 General: Alert, Oriented x3 HEENT: Atraumatic Extremities: No clubbing, No cyanosis, Capillary Refill Less than 3 Seconds, No Calf Tenderness, Edema, Peripheral Pulses Normal, Tenderness - Right foot distal incision Skin: Ulcer/ Wound - Ulceration noted to left plantar medial foot measuring 1.4 x 1.2 x 0.4 cm predebridement. There is surrounding callus tissue noted as well. This is a chronic ulceration no signs of active infection. Wound has granular base after debridement, Incision - Incision to right lateral foot with increased maceration noted to central incision. Moderate amount of serous drainage noted on dressing. Sutures intact skin well coapted. Small central ulceration. Skin edges are warm capillary fill time is normal Musculoskeletal: Tenderness, - - TMA left foot, right fifth ray resection Neurological: - - Decreased epicritic sensation consistent with neuropathy Psych/Mental Status: Normal Affect, Appropriate, Alert and oriented to time, place, person, mood and affect Microbiology Past 72 Hours 08/29/20 17:08 Tissue - Aerobic & Anaerobic Swabs Gram Stain - Final 08/29/20 17:08 Tissue - Aerobic & Anaerobic Swabs Wound Culture - Preliminary Staphylococcus aureus Staphylococcus species Gram positive organism 08/29/20 17:10 Bone - Toe Gram Stain - Final 08/29/20 17:10 Bone - Toe Wound Culture - Preliminary Staphylococcus aureus 08/28/20 23:00 Interface Orders - Final Laboratory Results 08/30/20 11:51: POC Glucose 216 H 08/30/20 16:41: POC Glucose 125 H 08/30/20 21:57: POC Glucose 86 08/31/20 06:45: POC Glucose 62 L 08/31/20 07:28: POC Glucose 109 08/31/20 11:30: POC Glucose 204 H Current Medications Acetaminophen (Acetaminophen 325 Mg Tablet) 650 mg PO Q8H PRN PRN PRN Reason: Pain 1-10 or Fever Atorvastatin Calcium (Atorvastatin Calcium 40 Mg Tablet) 40 mg PO QHS [facility] Last Admin: 08/30/20 22:02 Dose: 40 mg Documented by: Bupropion HCl (Bupropion (Sr) 150 Mg Tablet.Sa) 150 mg PO BID [facility] Last Admin: 08/31/20 09:20 Dose: 150 mg Documented by: Dextrose (Dextrose 50%-Water 25 Gm/50 Ml Disp.Syrin) 0 gm IV X1 PRN; Protocol PRN Reason: Hypoglycemia Docusate Sodium (Docusate Sodium 100 Mg Capsule) 100 mg PO BID PRN PRN PRN Reason: Constipation Enoxaparin Sodium (Enoxaparin 40 Mg/0.4 Ml Syringe) 40 mg SC DAILY [facility] Last Admin: 08/31/20 09:19 Dose: 40 mg Documented by: Famotidine (Famotidine 20 Mg Tablet) 20 mg PO BID [facility] Last Admin: 08/31/20 09:19 Dose: 20 mg Documented by: Gabapentin (Gabapentin 600 Mg Tablet) 600 mg PO TIDCM [facility] Last Admin: 08/31/20 09:19 Dose: 600 mg Documented by: Glucagon (Glucagon 1 Mg/Ml Syringe) 1 mg IM .X1 PRN PRN Reason: Hypoglycemia Sodium Chloride () 250 mls @ 15 mls/hr IV .[id number] PRN PRN Reason: Saline Flush Last Infusion: 08/31/20 00:26 Dose: 0 mls/hr Documented by: Sodium Chloride () 250 mls @ 15 mls/hr IV .[id number] PRN PRN Reason: Additional IVPB Infusion Piperacillin Sod/Tazobactam (Sod 3.375 gm/ Sodium Chloride) 50 mls @ 12.5 mls/hr IV Q8 [facility] Last Admin: 08/31/20 09:19 Dose: 12.5 mls/hr Documented by: Vancomycin IV Pharmacy to Dose (1 ea/ Sodium Chloride) 500 mls @ 250 mls/hr IV X1 PRN; Protocol PRN Reason: Rx to Dose Vancomycin HCl 1,500 mg/ (Sodium Chloride) 530 mls @ 250 mls/hr IV Q8H [facility] Last Infusion: 08/31/20 07:50 Dose: Infused Documented by: Insulin Human Lispro (Insulin Lispro 100 Unit/Ml Insuln.Pen) 0 unit SC ACHS [facility]; Protocol Last Admin: 08/31/20 07:46 Dose: Not Given Documented by: Insulin Human Regular (Insulin U-500 Pen) 150 units SC BREAKFAST [facility] Last Admin: 08/31/20 08:40 Dose: Not Given Documented by: Insulin Human Regular (Insulin U-500 Pen) 160 units SC LUNCH [facility] Last Admin: 08/30/20 12:33 Dose: 160 u Documented by: Insulin Human Regular (Insulin U-500 Pen) 140 units SC DINNER [facility] Last Admin: 08/30/20 16:44 Dose: 140 u Documented by: L-Arginine/L-Glutamine/Calcium HMB (Brett (Unflavored) Packet) 1 packet PO BIDCM [facility] Last Admin: 08/31/20 09:19 Dose: 1 packet Documented by: Lisinopril (Lisinopril 40 Mg Tablet) 40 mg PO DAILY [facility] Last Admin: 08/31/20 09:20 Dose: 40 mg Documented by: Melatonin (Melatonin 3 Mg Tablet) 3 mg PO QHS PRN PRN PRN Reason: INSOMNIA Last Admin: 08/30/20 22:02 Dose: 3 mg Documented by: Nicotine (Nicotine 21 Mg Patch) 21 mg TD DAILY [facility] Last Admin: 08/31/20 09:19 Dose: 21 mg Documented by: Nutritional Formula (Lactose Free) (Glucerna Shake 120 Ml Liquid) 120 ml PO 4X/DAY [facility] Last Admin: 08/31/20 09:19 Dose: 120 ml Documented by: Ondansetron HCl (Ondansetron 4 Mg/2 Ml Vial) 4 mg IV Q8H PRN PRN PRN Reason: NAUSEA/VOMITING Oxycodone HCl (Oxycodone 5 Mg Tablet) 5 mg PO Q4H PRN PRN PRN Reason: Pain Score 4-10/10 Last Admin: 08/31/20 07:44 Dose: 5 mg Documented by: Sodium Chloride (0.9% Saline Lock 10 Ml Syringe) 10 - 40 ml IV UD PRN PRN Reason: SALINE FLUSH Last Admin: 08/28/20 21:56 Dose: 20 ml Documented by: Tamsulosin HCl (Tamsulosin Hcl 0.4 Mg Capsule) 0.4 mg PO DAILY@1730 [facility] Last Admin: 08/30/20 16:43 Dose: 0.4 mg Documented by: Medical Necessity - Tobacco Use Smoking Status: Heavy Smoker (>10/day) Assessment/Plan All Active Problems (Last Updated 08/28/20 @ 17:[address] Irene Claudio, [facility]) Cellulitis of right lower limb (Acute) Right foot infection Osteomyelitis fifth metatarsal is suspected Uncontrolled diabetes with neuropathy bilateral foot ulcers Other comorbidities include tobacco abuse, obesity, sleep apnea, hyperlipidemia, hypertension, prior stage II kidney disease, BPH Patient seen and examined Patient has no pain in surgical foot Dressing changed today with moderate serous drainage noted. Dressed with betadine, abd, 4x4, kerlix, guerrero. Will consider changing dressing more frequently due to amount of drainage and maceration Cultures from OR are still finalizing but so far show staph aureus growing in the bone. Follow culture results. Cultures from office growing methacillin resistiant staph aureus, kelbsiella, enterobacter, strepp mitis, corynebacterium Reviewed post op XR White blood cell count is within normal limits today was elevated upon admission PVRs from April 2020 were reviewed showing an KANDI of 0.94 which should show adequate blood flow for healing after surgery Total contact cast to left lower extremity was removed today with a cast saw without incident. Underlying ulceration noted to plantar medial foot with surrounding callus tissue. Patient also has a TMA on the left side Sharp excisional nonselective debridement of all devitalized tissue, fibrous, biofilm, slough was carried out with a 3 mm curette into the level of subcutaneous tissue to the left plantar medial forefoot near TMA stump. This was done without incident. Patient tolerated due to neuropathy. Post debridement measurements were 1.5 x 1.3 x 0.4 cm Due to patient having ulcerations on both feet he is unable to be nonweightbearing to both the ulcerative and the surgical site. This would be ideal but not feasible. Patient is to limit weightbearing and focus on heel weightbearing as much as possible. Continue IV antibiotics Follow ID recommendations who recommend PICC line and long-term IV antibiotics PT consulted Talk to case management about home health care versus SNF placement. Patient is reluctant to go to a care facility due to potential COVID-19 exposure Hospitalist will be consulted for medical management and care will be greatly appreciated including diabetes management, medication review, and IV fluid recommendations Please not hesitate to call if you have any questions.
[2020-08-31] MEDS: Acetaminophen 325 MG Tablet 650 MG PO (12:07)
[2020-08-31] MEDS: Insulin Lispro 100 UNIT/ML INSULN.PEN SC ×2 (12:39→17:29)
[2020-08-31 15:00] LABS: Vancomycin, Trough Level 14.1 ug/mL (5.0-15.0)
[2020-08-31 15:30] VITALS: BP 152/113; PULSE 83; RESP 18; TEMP 36.6; O2SAT 94
--- NOTE | 2020-08-31 15:36 | PCM.RX.CS ---
Consult Pharmacy has been consulted to manage selected antiobiotic: Vancomycin Type of Consult: Follow-up Suspected Infection: Skin/Soft tissue, Osteomyelitis Prior Doses of Antibiotics Received/Current Regimen: Currently on 1500mg iv q8h. Labs: Sodium 135 mmol/L (136-145) L 08/30/20 05:39 Potassium 4.4 mmol/L (3.5-5.1) 08/30/20 05:39 Chloride 105 mmol/L (98-107) 08/30/20 05:39 Carbon Dioxide 27.0 mmol/L (21.0-32.0) 08/30/20 05:39 Anion Gap 3 (5-15) L 08/30/20 05:39 BUN 13 mg/dL (7-18) 08/30/20 05:39 Creatinine 0.81 mg/dL (0.70-1.30) 08/30/20 05:39 Est GFR (MDRD) Af Amer 124 mL/min (>60) 08/30/20 05:39 Est GFR (MDRD) Non-Af 102 mL/min (>60) 08/30/20 05:39 BUN/Creatinine Ratio 16.1 RATIO (-20) 08/30/20 05:39 Glucose 249 mg/dL (74-106) H 08/30/20 05:39 Vancomycin Trough 14.1 ug/mL (5.0-15.0) 08/31/20 13:40 Microbiology: Microbiology 08/29/20 17:08 Tissue - Aerobic & Anaerobic Swabs Gram Stain - Final 08/29/20 17:08 Tissue - Aerobic & Anaerobic Swabs Wound Culture - Preliminary Staphylococcus aureus Staphylococcus species Gram positive organism 08/29/20 17:10 Bone - Toe Gram Stain - Final 08/29/20 17:10 Bone - Toe Wound Culture - Preliminary Staphylococcus aureus 08/28/20 23:00 Interface Orders - Final Weight used for dosin kg Estimated Creatinine Clearance: 107 ml/min Goal Trough: 15-20 mcg/mL Pharmacy Plan for Drug Dosing: After increasing dose from 1500mg iv q12 to 1500mg iv q8h trough level has increased from 8.8 to 14.1 (goal range 15-20mcg/ml). Renal function stable with Cr 0.8 and CrCl >100ml/min. Will continue same dose for now and get another trough before 4th new dose with expectation trough level may still increase. Pharmacy Service will continue to monitor and adjust dosing as required. Follow-Up Labs: Trough Vancomycin - 12.11.20 @2130 before 2200 dose
--- NOTE | 2020-08-31 16:05 | CASEMGMT ---
LAURIE INMAN received call from [facility] regarding cost of ATBs. Medication is covered at 100% and supplies are covered at 80%. Cost for supplies approx $21 per day. LAURIE INMAN also spoke with Deric at [facility] and they are not able to see pay daily on MWF. LAURIE INMAN updated patient regarding cost per day and C. LAURIE INMAN updated patient that he will need to find someone to learn IV ATB administration and wound care. Patient states he knows some people that could maybe help. Patient states he is not going to a SNF.
[2020-08-31 17:11] LABS: Bedside Glucose 167 mg/dL (70-110)
[2020-08-31] MEDS: Tamsulosin HCl 0.4 MG Capsule PO (17:28)
[2020-08-31 21:00] VITALS: BP 159/62; PULSE 87; RESP 20; TEMP 36.6; O2SAT 94
[2020-08-31] MEDS: Atorvastatin Calcium 40 MG Tablet PO (22:39)
[2020-08-31] MEDS: 0.9% Saline Lock 10 ML Syringe IV (22:40)
[2020-08-31 23:46] LABS: Bedside Glucose 121 mg/dL (70-110)
[2020-09-01 02:36] VITALS: BP 167/70; PULSE 84; RESP 16; TEMP 36.7; O2SAT 93
[2020-09-01] MEDS: 0.9% Saline Lock 10 ML Syringe IV ×2 (05:58→17:30)
[2020-09-01 08:11] LABS: Bedside Glucose 98 mg/dL (70-110)
[2020-09-01 08:24] VITALS: BP 165/67; PULSE 86; RESP 18; TEMP 36.5; O2SAT 95
[2020-09-01] MEDS: Juven (unflavored) Packet 1 PACKET PO ×2 (08:26→17:30)
[2020-09-01] MEDS: Enoxaparin 40 MG/0.4 ML Syringe SC (08:26)
[2020-09-01] MEDS: Famotidine 20 MG Tablet PO (08:27)
[2020-09-01] MEDS: Gabapentin 600 MG Tablet PO ×3 (08:27→17:30)
[2020-09-01] MEDS: Lisinopril 40 MG Tablet PO (08:27)
[2020-09-01] MEDS: buPROPion (SR) 150 MG Tablet.SA PO (08:27)
--- NOTE | 2020-09-01 08:57 | PN_ITS ---
Patient Problems: Active and Suspected Problems (Last Updated 08/28/20 @ 17:[address] Irene Claudio, [facility]) Cellulitis of right lower limb (Acute) Osteomyelitis of right foot (Suspected) Subjective: Chief complaint: Follow-up after consultation for medical management. Patient seen and examined. No acute events overnight. Today, right foot pain is manageable, stable. No other complaints. Blood pressure slight elevated, other vital signs are stable. - Physical Exam Vitals/I&O's: Vital Signs Temp Pulse Resp BP Pulse Ox 97.7 F L 86 18 165/67 H 95 09/01/20 08:24 09/01/20 08:24 09/01/20 08:24 09/01/20 08:24 09/01/20 08:24 Oxygen Delivery Method Room Air Weight: 365 lb 4.895 oz Body Mass Index (BMI) 46.9 Finger Stick Blood Glucose 137 Intake and Output for Last 24 Hours 08/30/20 08/31/20 09/01/20 23:59 23:59 23:59 Intake Total 2681.25 / 2681.25 3343 / 3863 2301 / 2301 Output Total 3200 / 3200 2000 / 2900 1950 / 1950 Balance -518.75 / -518.75 1343 / 963 351 / 351 General: Alert, Oriented x3, Cooperative, No apparent distress HEENT: Atraumatic, PERRLA, EOMI, Normocephalic Oral: Moist Mucosa, No Gingival or Mucosal Lesions/ Ulcerations Neck: Supple, No JVD, Negative Carotid Bruits, Trachea Midline, Thyroid Normal Size and Texture Lungs: Clear to auscultation, Normal air movement, No rhonchi, No wheeze, No rales Cardiovascular: Regular rate, Regular Rhythm, Normal S1, Normal S2, PMI Normal Abdomen: Bowel Sounds Present, Soft, Non Tender, Non-Distended, No Hepato- splenomegaly, Obese Extremities: No clubbing, No cyanosis, Edema Skin: No rashes, Ulcer/ Wound Lymphatic: No Cervical, Supraclavicular, or Inguinal Adenopathy Neurological: Cranial nerves II-XII grossly intact, Neuro grossly intact Psych/Mental Status: Normal Affect, Appropriate, Alert and oriented to time, place, person, mood and affect Microbiology Past 72 Hours 08/29/20 17:10 Bone - Toe Gram Stain - Final 08/29/20 17:10 Bone - Toe Wound Culture - Final Meth. resistant Staph. aureus 08/29/20 17:08 Tissue - Aerobic & Anaerobic Swabs Gram Stain - Final 08/29/20 17:08 Tissue - Aerobic & Anaerobic Swabs Wound Culture - Preliminary Meth. resistant Staph. aureus Kocuria kristinae Staphylococcus simulans Laboratory Results 08/31/20 11:30: POC Glucose 204 H 08/31/20 13:40: Vancomycin Trough 14.1 08/31/20 17:05: POC Glucose 167 H 08/31/20 22:37: POC Glucose 121 H 09/01/20 08:00: POC Glucose 98 Microbiology 08/29/20 17:10 Bone - Toe Gram Stain - Final 08/29/20 17:10 Bone - Toe Wound Culture - Final Meth. resistant Staph. aureus 08/29/20 17:08 Tissue - Aerobic & Anaerobic Swabs Gram Stain - Final 08/29/20 17:08 Tissue - Aerobic & Anaerobic Swabs Wound Culture - Prel iminary Meth. resistant Staph. aureus Kocuria kristinae Staphylococcus simulans 08/28/20 23:00 Interface Orders - Final Current Medications Acetaminophen (Acetaminophen 325 Mg Tablet) 650 mg PO Q8H PRN PRN PRN Reason: Pain 1-10 or Fever Last Admin: 08/31/20 12:07 Dose: 650 mg Documented by: Atorvastatin Calcium (Atorvastatin Calcium 40 Mg Tablet) 40 mg PO QHS [facility] Last Admin: 08/31/20 22:39 Dose: 40 mg Documented by: Bupropion HCl (Bupropion (Sr) 150 Mg Tablet.Sa) 150 mg PO BID [facility] Last Admin: 09/01/20 08:27 Dose: 150 mg Documented by: Dextrose (Dextrose 50%-Water 25 Gm/50 Ml Disp.Syrin) 0 gm IV X1 PRN; Protocol PRN Reason: Hypoglycemia Docusate Sodium (Docusate Sodium 100 Mg Capsule) 100 mg PO BID PRN PRN PRN Reason: Constipation Enoxaparin Sodium (Enoxaparin 40 Mg/0.4 Ml Syringe) 40 mg SC DAILY [facility] Last Admin: 09/01/20 08:26 Dose: 40 mg Documented by: Famotidine (Famotidine 20 Mg Tablet) 20 mg PO BID [facility] Last Admin: 09/01/20 08:27 Dose: 20 mg Documented by: Gabapentin (Gabapentin 600 Mg Tablet) 600 mg PO TIDCM [facility] Last Admin: 09/01/20 08:27 Dose: 600 mg Documented by: Glucagon (Glucagon 1 Mg/Ml Syringe) 1 mg IM .X1 PRN PRN Reason: Hypoglycemia Sodium Chloride () 250 mls @ 15 mls/hr IV .[id number] PRN PRN Reason: Saline Flush Last Infusion: 09/01/20 05:59 Dose: 0 mls/hr Documented by: Sodium Chloride () 250 mls @ 15 mls/hr IV .[id number] PRN PRN Reason: Additional IVPB Infusion Piperacillin Sod/Tazobactam (Sod 3.375 gm/ Sodium Chloride) 50 mls @ 12.5 mls/hr IV Q8 [facility] Last Admin: 09/01/20 05:59 Dose: 12.5 mls/hr Documented by: Vancomycin IV Pharmacy to Dose (1 ea/ Sodium Chloride) 500 mls @ 250 mls/hr IV X1 PRN; Protocol PRN Reason: Rx to Dose Vancomycin HCl 1,500 mg/ (Sodium Chloride) 530 mls @ 250 mls/hr IV Q8H [facility] Last Infusion: 09/01/20 08:07 Dose: Infused Documented by: Insulin Human Lispro (Insulin Lispro 100 Unit/Ml Insuln.Pen) 0 unit SC ACHS [facility]; Protocol Last Admin: 09/01/20 08:25 Dose: Not Given Documented by: Insulin Human Regular (Insulin U-500 Pen) 150 units SC BREAKFAST [facility] Last Admin: 09/01/20 08:26 Dose: 150 u Documented by: Insulin Human Regular (Insulin U-500 Pen) 160 units SC LUNCH [facility] Last Admin: 08/31/20 12:39 Dose: 160 u Documented by: Insulin Human Regular (Insulin U-500 Pen) 140 units SC DINNER [facility] Last Admin: 08/31/20 17:29 Dose: 140 u Documented by: L-Arginine/L-Glutamine/Calcium HMB (Brett (Unflavored) Packet) 1 packet PO BIDCM [facility] Last Admin: 09/01/20 08:26 Dose: 1 packet Documented by: Lisinopril (Lisinopril 40 Mg Tablet) 40 mg PO DAILY [facility] Last Admin: 09/01/20 08:27 Dose: 40 mg Documented by: Melatonin (Melatonin 3 Mg Tablet) 3 mg PO QHS PRN PRN PRN Reason: INSOMNIA Last Admin: 08/30/20 22:02 Dose: 3 mg Documented by: Nicotine (Nicotine 21 Mg Patch) 21 mg TD DAILY [facility] Last Admin: 09/01/20 08:26 Dose: 21 mg Documented by: Nutritional Formula (Lactose Free) (Glucerna Shake 120 Ml Liquid) 120 ml PO 4X/DAY [facility] Last Admin: 09/01/20 08:27 Dose: Not Given Documented by: Ondansetron HCl (Ondansetron 4 Mg/2 Ml Vial) 4 mg IV Q8H PRN PRN PRN Reason: NAUSEA/VOMITING Oxycodone HCl (Oxycodone 5 Mg Tablet) 5 mg PO Q4H PRN PRN PRN Reason: Pain Score 4-1010 Last Admin: 08/31/20 17:34 Dose: 5 mg Documented by: Sodium Chloride (0.9% Saline Lock 10 Ml Syringe) 10 - 40 ml IV UD PRN PRN Reason: SALINE FLUSH Last Admin: 09/01/20 05:58 Dose: 10 ml Documented by: Tamsulosin HCl (Tamsulosin Hcl 0.4 Mg Capsule) 0.4 mg PO DAILY@1730 [facility] Last Admin: 08/31/20 17:28 Dose: 0.4 mg Documented by: Medical Necessity - Tobacco Use Smoking Status: Heavy Smoker (>10/day) Assessment/Plan All Active Problems (Last Updated 08/28/20 @ 17:[address] Irene Claudio, [facility]) Cellulitis of right lower limb (Acute) This is a 65 years old male patient admitted because of right foot infection by podiatry medicine underwent surgery for suspected right foot osteomyelitis and I am seeing this patient for pre and postoperative medical management. #1 acute right foot cellulitis/suspected right foot/right fifth metatarsal osteomyelitis: Status post right foot fifth digit amputation and right fifth metatarsal head resection with bone biopsy, postoperative day 2. Remained on IV Zosyn and vancomycin. He is on OxyIR as needed for pain. Wound cultures are revealed MRSA, staph stimulans. Podiatry medicine is managing. Infectious disease on the case as well. Plan to DC home with home health on IV antibiotics. #2 uncontrolled type 2 diabetes mellitus: Blood sugar has been under fair control during this admission. Hemoglobin A1c was 10.5% on Jan, 2020. Currently, patient is on insulin U500, sliding scale. continue same treatment. #3 hypertension: Blood pressure stable, continue lisinopril. #4 hyperlipidemia: Continue statins. #5 benign prostatic hypertrophy: Continue Flomax. #6 DVT prophylaxis: Subcu Lovenox. This note was generated with [employer] dictation software. It may contain incorrect words, spelling, and punctuation that were not noted in checking the note before signing. Inpatient E&M: 09399 Subs Hosp L2
--- NOTE | 2020-09-01 09:30 | CASEMGMT ---
LAURIE INMAN in to discuss discharge planning for patient. Patient states he would like to go home with [facility]. LAURIE INMAN called [facility] and they could do a start of care for 7pm this evening. LAURIE INMAN updated podiatry and plan is for discharge today to home. LAURIE INMAN updated the patient that he will need family member that is learning IV ATBs and wound care to be at his home this evening for teaching. Patient states he is still working on finding family member to assist with care. LAURIE INMAN will follow-up with patient and plan for a safe discharge.
--- NOTE | 2020-09-01 11:15 | CASEMGMT ---
LAURIE INMAN called and updated [facility] that patient will be leaving today and [facility] will be at home at 7pm for start of care. Patient asked to talk with CM. Patient states he is agreeable to SNF if TCU has bed available and is able to accept. LAURIE INMAN updated SW. Per SW called TCU and bed is available and they are able to accept the patient . LAURIE INMAN updated the patient regarding acceptance to TCU. LAURIE INMAN [place] [facility] and updated that patient will now be discharging to TCU pending Precert. LAURIE INMAN updated inbound ingredient logistics specialist as well. Disposition Plan: TCU pending precert
--- NOTE | 2020-09-01 12:16 | DCINST_ITS ---
Discharge Diet: Carb Control Diet Discharge Activity: - - as little as possible, stay off feet as much as he can, in surgical shoes if needs to be up Weight Bearing Status: Partial weight bearing - bilateral LE in surgical shoes Call your doctor if your incision/area has: Sudden Increased Bleeding, Increased Pain/ Swelling, Increased Redness, Foul Smelling Discharge Call your doctor if you observe: Fever of 101 or Higher, Chest pain, Calf discomfort, Uncontrolled pain Change Dressing in (Days):: 1 Additional Dressing/Incision Instructions:: change dressing daily to left foot. Left foot apply aquacel, 4x4, kerlix. Change dressing to right foot BID. Right foot apply betadine to incision, silver alginate, 4x4, abd, kerlix, guerrero wrap Allergies/Adverse Reactions: Allergies Sulfa (Sulfonamide Antibiotics) Allergy (Verified 07/28/20 14:16) Rash Medications to take at Discharge Calcium Carbonate [Calcium] 500 mg PO DAILY 06/23/17 Multivitamin [Multiple Vitamins] 1 ea PO DAILY 06/23/17 atorvastatin 40 mg tablet 40 mg PO DAILY 10/18/19 bupropion HCl 150 mg 24 hr tablet, extended release 150 mg PO BID tab 10/18/19 tamsulosin 0.4 mg capsule 0.4 mg PO DAILY@1730 cap 10/18/19 blood sugar diagnostic See Rx Instructions .ROUTE .MEDSUPPLY #100 ea 10/28/19 lancets 33 gauge See Rx Instructions .ROUTE .MEDSUPPLY #100 ea 10/28/19 gabapentin 300 mg capsule 600 mg PO TIDCM cap 04/24/20 aspirin 81 mg tablet,delayed release 81 mg PO DAILY tab 07/28/20 lisinopril 40 mg tablet 40 mg PO DAILY #90 tab 07/31/20 Insulin U-500 [Humulin R U-500 (BKC)] 140 units SC DINNER 08/28/20 Insulin U-500 [Humulin R U-500 (BKC)] 150 units SC BREAKFAST 08/28/20 Insulin U-500 [Humulin R U-500 (BK)] 160 units SC LUNCH 08/28/20 Ertapenem Sodium [Ertapenem] 1 gm IV DAILY #40 vial 08/31/20 Vancomycin/0.9 % Sod Chloride [Vanco 2 Gram/500 ml-0.9% NaCl] 2 gm IV Q12H #80 plast..bag 12/10/20 Acetaminophen [Tylenol Tablet] 650 mg PO Q8H PRN PRN tab 09/01/20 Enoxaparin [Lovenox] 40 mg SC DAILY syringe 09/01/20 Insulin U-500 [Humulin R U-500 (BKC)] 140 units SC DINNER pen 09/01/20 Insulin U-500 [Humulin R U-500 (BKC)] 150 units SC BREAKFAST pen 09/01/20 Insulin U-500 [Humulin R U-500 (BKC)] 160 units SC LUNCH pen 09/01/20 Brett (unflavored) [Brett Packet] 1 packet PO BIDCM packet 09/01/20 Nicotine [Nicoderm Cq] 21 mg TD DAILY patch 09/01/20 The following prescriptions were given: Ertapenem Sodium [Ertapenem] 1 gm IV DAILY #40 vial Prescription Printed Vancomycin/0.9 % Sod Chloride [Vanco 2 Gram/500 ml-0.9% NaCl] 2 gm IV Q12H #80 plast..bag Prescription Printed Orders to be completed after discharge: Durable Medical Equipment Location: None Selected Durable Medical Equipment Location: None Selected Primary Care Physician: Jaime Meyer Chi, MD [Primary Care Provider] - Test Results: Test results from this visit will be discussed in further detail at your follow- up appointment, if applicable. Please Follow Up With: Danielle Powell DPM When: 1 week after DC Please Follow Up With: Irene Claudio DPM When: 1 week after DC in [facility] Proposed Discharge Date: 09/01/20 - awaiting precert
--- NOTE | 2020-09-01 12:20 | PCM.TXEXTCAR ---
- Diet 08/29/20 17:44 Diet: Carbohydrate Controlled Is pt able to select menu?: Yes - Routine Orders/Code Status Routine Lab Work: CBC - once a week Code Status: Full Code - Wound(s) R foot Wound Type: Surgical Incision Dressing Change: AntiMicrobial (Aquacel AG, etc) LLE Wound Type: Neuropathic/Diabetic Foot Ulcer Dressing Change: AntiMicrobial (Aquacel AG, etc) generalized, all extremitites Wound Type: scattered scabs Dressing Change: Dry Sterile Dressing - Therapies Weight Bearing: Partial weight bearing Extremity Affected:: Bilateral Lower Physical Therapy: Eval and Treat Occupational Therapy: Eval and Treat - Problem/Diagnosis (1) Type 2 diabetes mellitus Status: Chronic (2) Type 2 diabetes mellitus with diabetic polyneuropathy Status: Chronic (3) Chronic ulcer of right foot with fat layer exposed Status: Chronic (4) Osteomyelitis, unspecified Status: Chronic (5) Difficulty in walking, not elsewhere classified Status: Chronic (6) Osteomyelitis of right foot Status: Suspected - Allergies/Procedures Done in Hospital Allergies/Adverse Reactions: Allergies Sulfa (Sulfonamide Antibiotics) Allergy (Verified 07/28/20 14:16) Rash Procedures: - - right lateral foot amputation - Type of Care/Length of Stay Estimated LOS: Convalescent Care Less Than 30 days Type of Care Needed: Skilled Rehab Potential: Fair Prognosis: Fair - Additional Orders/Day of Discharge H&P will serve as current which was dated: 08/28/20 Day of Discharge: 09/01/20 - Dietary and Speech Recommendations Dietitian Recommendations/Changes: Advance diet as tolerated to 2200 calorie controlled. Will add Brett BID for wound healing. - Follow Up Care Primary Care Physician: Jaime Meyer Chi, MD [Primary Care Provider] - Please Follow Up With: Danielle Powell DPM When: 1 week after DC Please Follow Up With: Irene Claudio DPM When: 1 week after DC at [facility]
[2020-09-01] MEDS: Acetaminophen 325 MG Tablet 650 MG PO (13:13)
[2020-09-01] MEDS: Insulin Lispro 100 UNIT/ML INSULN.PEN SC (13:14)
--- NOTE | 2020-09-01 13:22 | CASEMGMT ---
Social Work Note ROBBIN updated that pt would be agreeable to TCU and only TCU if they have beds available. ROBBIN placed a call to Emmanuelle with referral line and provided TCU referral. Emmanuelle states she has a bed available, will submit for pre-cert. Emmanuelle state she will need COVID test and states OT has not been ordered. ROBBIN spoke with physician, ravin for OT to be ordered. OT ordered. ROBBIN updated charge nurse that pt will need COVID test. SW in to speak with pt. ROBBIN introduced self and role at [facility]. Pt is alert and orientated x3. ROBBIN updated pt that TCU is able to accept pt pending pre-cert. SW updated pt that his insurance may not cover full 6 week stay at TCU for IV antibiotics. ROBBIN updated pt that if pre-cert is not obtained today, pt will likely be at [facility] through the weekend. Pt states understanding. Plan: TCU pending pre-cert. Pt will need COVID results before admitting to TCU. Madai Andrade [employer], HEART NURSE
--- NOTE | 2020-09-01 14:02 | CASEMGMT ---
LAURIE INMNA in to discuss discharge planning for patient. Patient states he would like to go home with [facility]. LAURIE INMAN called [facility] and they could do a start of care for 7pm this evening. LAURIE INMAN updated podiatry and plan is for discharge today to home. LAURIE INMAN updated the patient that he will need family member that is learning IV ATBs and wound care to be at his home this evening for teaching. Patient states he is still working on finding family member to assist with care. LAURIE INMAN will follow-up with patient and plan for a safe discharge.
--- NOTE | 2020-09-01 14:24 | PN_ITS ---
Patient Problems: Active and Suspected Problems (Last Updated 08/28/20 @ 17:[address] Irene Claudio, [facility]) Cellulitis of right lower limb (Acute) Osteomyelitis of right foot (Suspected) Subjective: Patient seen and examined in chair. Phantom limb pain, much improved. Patient has decided to go to TCU instead of [facility]. Patient is reluctant due to COVID concerns. Patient denies N/V/F/C/CP/SOB - Physical Exam Vitals/I&O's: Vital Signs Temp Pulse Resp BP Pulse Ox 97.7 F L 86 18 165/67 H 95 09/01/20 08:24 09/01/20 08:24 09/01/20 08:24 09/01/20 08:24 09/01/20 08:24 Oxygen Delivery Method Room Air Weight: 165.7 kg Body Mass Index (BMI) 46.9 Finger Stick Blood Glucose 137 Intake and Output for Last 24 Hours 08/30/20 08/31/20 09/01/20 23:59 23:59 23:59 Intake Total 2681.25 / 2681.25 3343 / 3863 2351 / 2351 Output Total 3200 / 3200 2000 / 2900 1950 / 1950 Balance -518.75 / -518.75 1343 / 963 401 / 401 General: Alert, Oriented x3 HEENT: Atraumatic Extremities: No clubbing, No cyanosis, Capillary Refill Less than 3 Seconds, No Calf Tenderness, Diminished Peripheral Pulses, Edema Skin: Ulcer/ Wound - left foot plantar medial, Incision - right foot with central ulceration, maceration to central incision is worse than yesterday. Heavy serous drainage noted to dressing, rest of wound is well copated, sutures intact, no erythema, no purulence, edges warm Musculoskeletal: No Tenderness to Palpation of Joints or Extremities, - - TMA left, right 5th ray resection Neurological: - - absent light touch sensation Psych/Mental Status: Normal Affect, Appropriate, Alert and oriented to time, place, person, mood and affect Microbiology Past 72 Hours 09/01/20 13:12 Mucosa - Nose SARS-CoV-2 Antigen (Rapid) - Final 08/29/20 17:08 Tissue - Aerobic & Anaerobic Swabs Gram Stain - Final 08/29/20 17:08 Tissue - Aerobic & Anaerobic Swabs Wound Culture - Final Meth. resistant Staph. aureus Kocuria kristinae Staphylococcus simulans 08/29/20 17:08 Tissue - Aerobic & Anaerobic Swabs Anaerobic Culture - Preliminary Checking for anaerobes, further studies to follow. 08/29/20 17:10 Bone - Toe Gram Stain - Final 08/29/20 17:10 Bone - Toe Wound Culture - Final Meth. resistant Staph. aureus 08/29/20 17:10 Bone - Toe Anaerobic Culture - Preliminary Checking for anaerobes, further studies to follow. Laboratory Results 08/31/20 13:40: Vancomycin Trough 14.1 08/31/20 17:05: POC Glucose 167 H 08/31/20 22:37: POC Glucose 121 H 09/01/20 08:00: POC Glucose 98 Current Medications Acetaminophen (Acetaminophen 325 Mg Tablet) 650 mg PO Q8H PRN PRN PRN Reason: Pain 1-10 or Fever Last Admin: 09/01/20 13:13 Dose: 650 mg Documented by: Atorvastatin Calcium (Atorvastatin Calcium 40 Mg Tablet) 40 mg PO QHS [facility] Last Admin: 08/31/20 22:39 Dose: 40 mg Documented by: Bupropion HCl (Bupropion (Sr) 150 Mg Tablet.Sa) 150 mg PO BID [facility] Last Admin: 09/01/20 08:27 Dose: 150 mg Documented by: Dextrose (Dextrose 50%-Water 25 Gm/50 Ml Disp.Syrin) 0 gm IV X1 PRN; Protocol PRN Reason: Hypoglycemia Docusate Sodium (Docusate Sodium 100 Mg Capsule) 100 mg PO BID PRN PRN PRN Reason: Constipation Enoxaparin Sodium (Enoxaparin 40 Mg/0.4 Ml Syringe) 40 mg SC DAILY [facility] Last Admin: 09/01/20 08:26 Dose: 40 mg Documented by: Famotidine (Famotidine 20 Mg Tablet) 20 mg PO BID [facility] Last Admin: 09/01/20 08:27 Dose: 20 mg Documented by: Gabapentin (Gabapentin 600 Mg Tablet) 600 mg PO TIDCM [facility] Last Admin: 09/01/20 13:15 Dose: 600 mg Documented by: Glucagon (Glucagon 1 Mg/Ml Syringe) 1 mg IM .X1 PRN PRN Reason: Hypoglycemia Sodium Chloride () 250 mls @ 15 mls/hr IV .[id number] PRN PRN Reason: Saline Flush Last Infusion: 09/01/20 09:59 Dose: 15 mls/hr Documented by: Sodium Chloride () 250 mls @ 15 mls/hr IV .[id number] PRN PRN Reason: Additional IVPB Infusion Piperacillin Sod/Tazobactam (Sod 3.375 gm/ Sodium Chloride) 50 mls @ 12.5 mls/hr IV Q8 [facility] Last Infusion: 09/01/20 09:59 Dose: Infused Documented by: Vancomycin IV Pharmacy to Dose (1 ea/ Sodium Chloride) 500 mls @ 250 mls/hr IV X1 PRN; Protocol PRN Reason: Rx to Dose Vancomycin HCl 1,500 mg/ (Sodium Chloride) 530 mls @ 250 mls/hr IV Q8H [facility] Last Infusion: 09/01/20 08:07 Dose: Infused Documented by: Insulin Human Lispro (Insulin Lispro 100 Unit/Ml Insuln.Pen) 0 unit SC ACHS [facility]; Protocol Last Admin: 09/01/20 13:14 Dose: 1 units Documented by: Insulin Human Regular (Insulin U-500 Pen) 150 units SC BREAKFAST [facility] Last Admin: 09/01/20 08:26 Dose: 150 u Documented by: Insulin Human Regular (Insulin U-500 Pen) 160 units SC LUNCH [facility] Last Admin: 09/01/20 13:13 Dose: 160 u Documented by: Insulin Human Regular (Insulin U-500 Pen) 140 units SC DINNER [facility] Last Admin: 08/31/20 17:29 Dose: 140 u Documented by: L-Arginine/L-Glutamine/Calcium HMB (Brett (Unflavored) Packet) 1 packet PO BIDCM [facility] Last Admin: 09/01/20 08:26 Dose: 1 packet Documented by: Lisinopril (Lisinopril 40 Mg Tablet) 40 mg PO DAILY [facility] Last Admin: 09/01/20 08:27 Dose: 40 mg Documented by: Melatonin (Melatonin 3 Mg Tablet) 3 mg PO QHS PRN PRN PRN Reason: INSOMNIA Last Admin: 08/30/20 22:02 Dose: 3 mg Documented by: Nicotine (Nicotine 21 Mg Patch) 21 mg TD DAILY [facility] Last Admin: 09/01/20 08:26 Dose: 21 mg Documented by: Ondansetron HCl (Ondansetron 4 Mg/2 Ml Vial) 4 mg IV Q8H PRN PRN PRN Reason: NAUSEA/VOMITING Oxycodone HCl (Oxycodone 5 Mg Tablet) 5 mg PO Q4H PRN PRN PRN Reason: Pain Score 4-10 Last Admin: 08/31/20 17:34 Dose: 5 mg Documented by: Sodium Chloride (0.9% Saline Lock 10 Ml Syringe) 10 - 40 ml IV UD PRN PRN Reason: SALINE FLUSH Last Admin: 09/01/20 05:58 Dose: 10 ml Documented by: Tamsulosin HCl (Tamsulosin Hcl 0.4 Mg Capsule) 0.4 mg PO DAILY@1730 GT Last Admin: 08/31/20 17:28 Dose: 0.4 mg Documented by: Medical Necessity - Tobacco Use Smoking Status: Heavy Smoker (>10/day) Assessment/Plan All Active Problems (Last Updated 08/28/20 @ 17:[address] Irene Claudio, DP) Cellulitis of right lower limb (Acute) Right foot infection Osteomyelitis fifth metatarsal s/p 5th ray resection right foot 08/29/20 Uncontrolled diabetes with neuropathy bilateral foot ulcers Hx TMA left foot Other comorbidities include tobacco abuse, obesity, sleep apnea, hyperlipidemia, hypertension, prior stage II kidney disease, BPH Patient seen and examined Patient has no pain in surgical foot, Dressing changed today with heavy serous drainage noted to right foot. Recommend changing at least BID. Dressed with betadine, alginate, 4x4, abd, kerlix, guerrero. Will consider changing dressing more frequently due to amount of drainage and maceration. Left foot dressed with aquacel, 4x4, kerlix Cultures from OR are still finalizing but so far show staph aureus growing in the bone. Follow culture results. Cultures from office growing methacillin resistiant staph aureus, kelbsiella, enterobacter, strepp mitis, corynebacterium Reviewed post op XR PVRs from April 2020 were reviewed showing an KANDI of 0.94 which should show adequate blood flow for healing after surgery left ulceration noted to plantar medial foot with surrounding callus tissue. Patient also has a TMA on the left side Due to patient having ulcerations on both feet he is unable to be nonweightbearing to both the ulcerative and the surgical site. This would be ideal but not feasible. Patient is to limit weightbearing and focus on heel weightbearing as much as possible. Surgical shoes ordered Continue IV antibiotics per ID Follow ID recommendations who recommend PICC line and long-term IV antibiotics PT/OT consulted RX for wheel chair and ramp placed Talk to case management about home health care versus SNF placement. Patient is reluctant to go to a care facility due to potential COVID-19 exposure. Patient did agree to TCU though. Precert is pending Hospitalist will be consulted for medical management and care will be greatly a ppreciated including diabetes management, medication review, and IV fluid recommendations Please not hesitate to call if you have any questions.
[2020-09-01 14:31] LABS: Bedside Glucose 192 mg/dL (70-110)
[2020-09-01 14:59] VITALS: BP 146/64; PULSE 78; RESP 20; TEMP 36.7; O2SAT 97
--- NOTE | 2020-09-01 16:53 | NURSING ---
got call from Emmanuelle who reported that pt got approval for TCU and could DC this evening. notified Dr Powell and Dr Esteves.
[2020-09-01 17:06] LABS: Bedside Glucose 113 mg/dL (70-110)
[2020-09-01] MEDS: Tamsulosin HCl 0.4 MG Capsule PO (17:30)
[2020-09-01] MEDS: oxyCODONE 5 MG Tablet PO (17:34)
--- NOTE | 2020-09-01 17:34 | PCM.DC.SUM ---
Discharge Date and Diagnosis - Problem List Patient Problems: Active and Suspected Problems (Last Updated 08/28/20 @ 17:[address] Irene Claudio DPM) Cellulitis of right lower limb (Acute) Osteomyelitis of right foot (Acute) Date of Admission: 08/28/20 Date of Discharge: 09/01/20 - Primary Discharge Diagnosis Acute Problems: Active Problems (Last Updated 08/28/20 @ 17:[address] Irene Claudio DPM) Cellulitis of right lower limb (Acute) Osteomyelitis right fifth metatarsal Chronic ulcerations bilateral feet Suspected Problems: Suspected Problems (Last Updated 08/28/20 @ 17:[address] Irene Claudio DPM) Diabetes with neuropathy Peripheral vascular disease - Secondary Discharge Diagnosis Chronic Problems: Chronic Problems (Last Updated 08/28/20 @ 17:[address] 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) 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) Benign essential hypertension (Chronic) Mixed hyperlipidemia (Chronic) Chronic ulcer of right foot with fat layer exposed (Chronic) Obesity (Chronic) Tobacco abuse (Chronic) Osteomyelitis, unspecified (Chronic) Chronic ulcer of left foot with fat layer exposed (Chronic) Osteomyelitis of left foot (Chronic) Diabetic ulcer of left foot (Chronic) Other specified peripheral vascular diseases (Chronic) Delayed wound healing (Chronic) Difficulty in walking, not elsewhere classified (Chronic) 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) Tobacco abuse counseling (Chronic) MRSA (methicillin resistant staph aureus) culture positive (Chronic) Ulcer of left foot with muscle involvement without evidence of necrosis (Chronic) Ulcer of left foot with necrosis of muscle (Chronic) History of transmetatarsal amputation of left foot (Chronic) Ulcer of right foot with fat layer exposed (Chronic) Ulcer of right lower extremity with fat layer exposed (Chronic) Chronic ulcer of right foot with necrosis of muscle (Chronic) no necrosis clarified Hospital Course and Treatment Operations: - - Right fifth ray partial amputation with partial closure of ulceration Procedures: PICC line placement Summary of Care Provided: The patient is a 65 year old M who was sent for admission following appointment at Dr. 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 Patient is also noted to have a total contact cast to his left lower extremity for another ulceration. Significant medical history and comorbidities. Patient was admitted and labs and imaging were obtained. Patient started on IV antibiotics. ID and medicine were consulted. Imaging showed osteomyelitis of the right fifth metatarsal and proximal phalanx. Patient went to surgery for amputation of the fifth digit and partial fifth metatarsal. This was performed with Dr. Powell on 08/29/2020. The ulceration to his right foot was partially closed at that time. Cultures from the office demonstrated a polymicrobial infection. Cultures from the operating room showed remaining positive bone margins. ID recommendations were to start patient on long-term course of IV antibiotics and the PICC line was placed. Patient was sent to facility on vancomycin and ertapenem per ID recommendations. Podiatry continue to follow with daily monitoring. It was noted that the incision site had a area of central maceration which was concerning for wound breakdown and Betadine and alginate were started as well as twice daily dressing changes as patient was having significant amount of serous drainage. Seem to stabilize and will continue with the dressing changes at the facility as well. The cast to the left foot was removed and the wound on the plantar aspect of the left medial foot was examined should be noted the patient has a TMA on the side. Dressings were also applied and changed daily on this foot. Patient was weaned off of opioids. Patient was transferred to TCU for further care, monitoring, and recovering. [] Patient Problems: Active and Suspected Problems (Last Updated 08/28/20 @ 17:[address] Irene Claudio, [facility] Cellulitis of right lower limb (Acute) Osteomyelitis of right foot (Acute) - Physical Exam Vitals/I&O's: Vital Signs Temp Pulse Resp BP Pulse Ox 98.0 F 78 20 H 146/64 H 97 09/01/20 14:59 09/01/20 14:59 09/01/20 14:59 09/01/20 14:59 09/01/20 14:59 Oxygen Delivery Method Room Air Weight: 165.7 kg Body Mass Index (BMI) 46.9 Finger Stick Blood Glucose 137 Intake and Output for Last 24 Hours 08/30/20 08/31/20 09/01/20 23:59 23:59 23:59 Intake Total 2681.25 / 2681.25 3343 / 3863 3456 / 3456 Output Total 3200 / 3200 1999 / 2900 2550 / 2550 Balance -518.75 / -518.75 1343 / 963 906 / 906 General: Alert, Oriented x3 HEENT: Atraumatic Extremities: No clubbing, No cyanosis, Capillary Refill Less than 3 Seconds, No Calf Tenderness, Diminished Peripheral Pulses, Edema Skin: Ulcer/ Wound - Bilateral feet Musculoskeletal: - - TMA left foot Neurological: - - Creased epicritic light sensation Psych/Mental Status: Normal Affect, Appropriate, Alert and oriented to time, place, person, mood and affect Microbiology Past 72 Hours 09/01/20 13:12 Mucosa - Nose SARS-CoV-2 Antigen (Rapid) - Final 08/29/20 17:08 Tissue - Aerobic & Anaerobic Swabs Gram Stain - Final 08/29/20 17:08 Tissue - Aerobic & Anaerobic Swabs Wound Culture - Final Meth. resistant Staph. aureus Kocuria kristinae Staphylococcus simulans 08/29/20 17:08 Tissue - Aerobic & Anaerobic Swabs Anaerobic Culture - Preliminary Checking for anaerobes, further studies to follow. 08/29/20 17:10 Bone - Toe Gram Stain - Final 08/29/20 17:10 Bone - Toe Wound Culture - Final Meth. resistant Staph. aureus 08/29/20 17:10 Bone - Toe Anaerobic Culture - Preliminary Checking for anaerobes, further studies to follow. Laboratory Results 08/31/20 22:37: POC Glucose 121 H 09/01/20 08:00: POC Glucose 98 09/01/20 13:07: POC Glucose 192 H 09/01/20 17:02: POC Glucose 113 H Current Medications Acetaminophen (Acetaminophen 325 Mg Tablet) 650 mg PO Q8H PRN PRN PRN Reason: Pain 1-10 or Fever Last Admin: 09/01/20 13:13 Dose: 650 mg Documented by: Atorvastatin Calcium (Atorvastatin Calcium 40 Mg Tablet) 40 mg PO QHS [facility] Last Admin: 08/31/20 22:39 Dose: 40 mg Documented by: Bupropion HCl (Bupropion (Sr) 150 Mg Tablet.Sa) 150 mg PO BID [facility] Last Admin: 09/01/20 08:27 Dose: 150 mg Documented by: Dextrose (Dextrose 50%-Water 25 Gm/50 Ml Disp.Syrin) 0 gm IV X1 PRN; Protocol PRN Reason: Hypoglycemia Docusate Sodium (Docusate Sodium 100 Mg Capsule) 100 mg PO BID PRN PRN PRN Reason: Constipation Enoxaparin Sodium (Enoxaparin 40 Mg/0.4 Ml Syringe) 40 mg SC DAILY [facility] Last Admin: 09/01/20 08:26 Dose: 40 mg Documented by: Famotidine (Famotidine 20 Mg Tablet) 20 mg PO BID [facility] Last Admin: 09/01/20 08:27 Dose: 20 mg Documented by: Gabapentin (Gabapentin 600 Mg Tablet) 600 mg PO TIDCM [facility] Last Admin: 09/01/20 17:30 Dose: 600 mg Documented by: Glucagon (Glucagon 1 Mg/Ml Syringe) 1 mg IM .X1 PRN PRN Reason: Hypoglycemia Sodium Chloride () 250 mls @ 15 mls/hr IV .[id number] PRN PRN Reason: Saline Flush Last Infusion: 09/01/20 14:59 Dose: 0 mls/hr Documented by: Sodium Chloride () 250 mls @ 15 mls/hr IV .[id number] PRN PRN Reason: Additional IVPB Infusion Piperacillin Sod/Tazobactam (Sod 3.375 gm/ Sodium Chloride) 50 mls @ 12.5 mls/hr IV Q8 [facility] Last Admin: 09/01/20 14:50 Dose: 12.5 mls/hr Documented by: Vancomycin IV Pharmacy to Dose (1 ea/ Sodium Chloride) 500 mls @ 250 mls/hr IV X1 PRN; Protocol PRN Reason: Rx to Dose Vancomycin HCl 1,500 mg/ (Sodium Chloride) 530 mls @ 250 mls/hr IV Q8H [facility] Last Infusion: 09/01/20 16:58 Dose: Infused Documented by: Insulin Human Lispro (Insulin Lispro 100 Unit/Ml Insuln.Pen) 0 unit SC ACHS [facility]; Protocol Last Admin: 09/01/20 17:25 Dose: Not Given Documented by: Insulin Human Regular (Insulin U-500 Pen) 150 units SC BREAKFAST [facility] Last Admin: 09/01/20 08:26 Dose: 150 u Documented by: Insulin Human Regular (Insulin U-500 Pen) 160 units SC LUNCH [facility] Last Admin: 09/01/20 13:13 Dose: 160 u Documented by: Insulin Human Regular (Insulin U-500 Pen) 140 units SC DINNER [facility] Last Admin: 09/01/20 17:29 Dose: 140 u Documented by: L-Arginine/L-Glutamine/Calcium HMB (Brett (Unflavored) Packet) 1 packet PO BIDCM [facility] Last Admin: 09/01/20 17:30 Dose: 1 packet Documented by: Lisinopril (Lisinopril 40 Mg Tablet) 40 mg PO DAILY [facility] Last Admin: 09/01/20 08:27 Dose: 40 mg Documented by: Melatonin (Melatonin 3 Mg Tablet) 3 mg PO QHS PRN PRN PRN Reason: INSOMNIA Last Admin: 08/30/20 22:02 Dose: 3 mg Documented by: Nicotine (Nicotine 21 Mg Patch) 21 mg TD DAILY [facility] Last Admin: 09/01/20 08:26 Dose: 21 mg Documented by: Ondansetron HCl (Ondansetron 4 Mg/2 Ml Vial) 4 mg IV Q8H PRN PRN PRN Reason: NAUSEA/VOMITING Oxycodone HCl (Oxycodone 5 Mg Tablet) 5 mg PO Q4H PRN PRN PRN Reason: Pain Score 4-10/10 Last Admin: 08/31/20 17:34 Dose: 5 mg Documented by: Sodium Chloride (0.9% Saline Lock 10 Ml Syringe) 10 - 40 ml IV UD PRN PRN Reason: SALINE FLUSH Last Admin: 09/01/20 17:30 Dose: 40 ml Documented by: Tamsulosin HCl (Tamsulosin Hcl 0.4 Mg Capsule) 0.4 mg PO DAILY@1730 [facility] Last Admin: 09/01/20 17:30 Dose: 0.4 mg Documented by: Discharge Diet: Carb Control Diet Discharge Activity: - - as little as possible, stay off feet as much as he can, in surgical shoes if needs to be up Weight Bearing Status: Partial weight bearing - bilateral LE in surgical shoes Call your doctor if your incision/area has: Sudden Increased Bleeding, Increased Pain/ Swelling, Increased Redness, Foul Smelling Discharge Call your doctor if you observe: Fever of 101 or Higher, Chest pain, Calf discomfort, Uncontrolled pain Change Dressing in (Days):: 1 Additional Dressing/Incision Instructions:: change dressing daily to left foot. Left foot apply aquacel, 4x4, kerlix. Change dressing to right foot BID. Right foot apply betadine to incision, silver alginate, 4x4, abd, kerlix, guerrero wrap Home Medications: Medications to take at Discharge Calcium Carbonate [Calcium] 500 mg PO DAILY 06/23/17 Multivitamin [Multiple Vitamins] 1 ea PO DAILY 06/23/17 atorvastatin 40 mg tablet 40 mg PO DAILY 10/18/19 bupropion HCl 150 mg 24 hr tablet, extended release 150 mg PO BID tab 10/18/19 tamsulosin 0.4 mg capsule 0.4 mg PO DAILY@1730 cap 10/18/19 gabapentin 300 mg capsule 600 mg PO TIDCM cap 04/24/20 aspirin 81 mg tablet,delayed release 81 mg PO DAILY tab 07/28/20 Insulin U-500 [Humulin R U-500 ([facility])] 140 units SC DINNER 08/28/20 Insulin U-500 [Humulin R U-500 ([facility])] 150 units SC BREAKFAST 08/28/20 Insulin U-500 [Humulin R U-500 ([facility])] 160 units SC LUNCH 08/28/20 Acetaminophen [Tylenol Tablet] 650 mg PO Q8H PRN PRN tab 09/01/20 Blood Sugar Diagnostic [Onetouch Verio Test Strip] See Rx Instructions .ROUTE .MEDSUPPLY 09/01/20 Enoxaparin [Lovenox] 40 mg SC DAILY 09/01/20 Ertapenem Sodium [Ertapenem] 1 gm IV DAILY 09/01/20 Brett (unflavored) [Brett Packet] 1 packet PO BIDCM 09/01/20 Lancets See Rx Instructions .ROUTE .MEDSUPPLY 09/01/20 Lisinopril 40 mg PO DAILY 09/01/20 Nicotine [Nicoderm Cq] 21 mg TD DAILY 09/01/20 Vancomycin/0.9 % Sod Chloride [Vanco 2 Gram/500 ml-0.9% NaCl] 2 gm IV Q12H 09/01/20 Other Amb Orders: Durable Medical Equipment Location: None Selected Durable Medical Equipment Location: None Selected Primary Care Physician: Jaime Meyer Chi, MD [Primary Care Provider] - Please follow up with your Primary Care Physician in: 1-2 weeks Please Follow Up With: Danielle Powell DPM When: 1 week after DC Please Follow Up With: Irene Claudio DPM When: 1 week after DC at [facility] Medical Necessity - Tobacco Use Smoking Status: Heavy Smoker (>10/day) Meaningful Use Info Meaningful Use Diagnoses (Choose all that apply): None applicable
--- NOTE | 2020-09-01 18:14 | NURSING ---
Report called to TCU at this time. Maggy states she needs to STAT clean a room and will call when room is ready.
--- NOTE | 2020-09-01 18:41 | PCS.PANDOC ---
PANDEMIC DOCUMENTATION INITIATED: Date: 08/28/2020 Time: 220
== END 2020-09-01 18:59 | disposition skilled nursing facility (03) | DRG 570 ==
PROVIDERS: Hospitalist; Internal Medicine; Nurse Practitioner Family; Podiatrist Foot & Ankle Surgery; Admitting Provider Podiatrist; PCP Family Medicine Geriatric Medicine; Visit Provider Podiatrist
PROC: 0Y6X0Z0 Detachment at Right 5th Toe, Complete, Open Approach (ICD-10-PCS; principal; 2020-08-29 15:45)
DX: L03.115 Cellulitis of right lower limb (principal); E11.00 Type 2 diabetes mellitus with hyperosmolarity without nonketotic hyperglycemic-hyperosmolar coma (NKHHC); Z68.42 Body mass index [BMI] 45.0-49.9, adult; M86.672 Other chronic osteomyelitis, left ankle and foot; E11.621 Type 2 diabetes mellitus with foot ulcer; E11.42 Type 2 diabetes mellitus with diabetic polyneuropathy; E66.01 Morbid (severe) obesity due to excess calories; L97.512 Non-pressure chronic ulcer of other part of right foot with fat layer exposed; I12.9 Hypertensive chronic kidney disease with stage 1 through stage 4 chronic kidney disease, or unspecified chronic kidney disease; E11.22 Type 2 diabetes mellitus with diabetic chronic kidney disease; N40.0 Benign prostatic hyperplasia without lower urinary tract symptoms; E11.69 Type 2 diabetes mellitus with other specified complication; R26.2 Difficulty in walking, not elsewhere classified; F17.200 Nicotine dependence, unspecified, uncomplicated; Z79.4 Long term (current) use of insulin; Z79.82 Long term (current) use of aspirin; Z80.3 Family history of malignant neoplasm of breast; Z80.8 Family history of malignant neoplasm of other organs or systems; Z82.49 Family history of ischemic heart disease and other diseases of the circulatory system; Z86.14 Personal history of Methicillin resistant Staphylococcus aureus infection; Z83.3 Family history of diabetes mellitus; L97.513 Non-pressure chronic ulcer of other part of right foot with necrosis of muscle; L97.524 Non-pressure chronic ulcer of other part of left foot with necrosis of bone; G47.33 Obstructive sleep apnea (adult) (pediatric); E78.2 Mixed hyperlipidemia; Z82.5 Family history of asthma and other chronic lower respiratory diseases; E11.51 Type 2 diabetes mellitus with diabetic peripheral angiopathy without gangrene; N18.2 Chronic kidney disease, stage 2 (mild)
CPT/HCPCS: 36415; 36569; 71045; 73630; 73720; 80048; 80053; 80202; 82962; 83605; 85025; 85027; 85652; 86140; 87070; 87075; 87077; 87102; 87176; 87186; 87205; 87206; 87426; 88305; 88311; 93005; 94640; 97110; 97162; 97166; 97530; 97802; 97803; A9575; J7030; J7040; J7050; A4216

== ENCOUNTER → 2020-08-28 18:10 | Outpatient (CLI) | payer MEDICARE, SELFPAY ==
[2020-08-28 17:01] VITALS: BMI 46.9
[2020-08-28 20:29] LABS: M R Staph aureus DNA By PCR POSITIVE (Negative); Probe Check PASS; Staph aureus DNA By PCR POSITIVE (Negative)
== END ==
PROVIDERS: PCP Family Medicine Geriatric Medicine; Visit Provider Podiatrist
DX: L03.115 Cellulitis of right lower limb (principal); L97.514 Non-pressure chronic ulcer of other part of right foot with necrosis of bone
CPT/HCPCS: 87070; 87075; 87077; 87186; 87205; 87640

== ENCOUNTER 2020-09-01 19:00 | Inpatient (IN) | payer MEDICARE, SELFPAY ==
[2020-08-28 17:01] VITALS: BMI 46.9
[2020-09-01 19:45] VITALS: BP 173/66; PULSE 76; RESP 16; TEMP 36.9; O2SAT 95
[2020-09-01 20:00] VITALS: BMI 47.2
--- NOTE | 2020-09-01 21:21 | HP.PCM_ITS ---
Problem List (1) Debility Status: Acute (2) Diabetes mellitus Status: Chronic (3) Diabetic polyneuropathy Status: Chronic (4) Hyperlipidemia Status: Chronic (5) BPH (benign prostatic hyperplasia) Status: Chronic (6) Tobacco abuse Status: Chronic (7) Cellulitis of right lower limb Status: Acute (8) Osteomyelitis of right foot Status: Acute History of Present Illness Date of Admission: 09/01/20 Chief Complaint: Here for rehabilitation, strengthening, intravenous antibiotics, wound care, prior to discharge home alone. 08/28/20 The patient is a 65 year old Male with below past medical history admitted to [facility]. 08/28/20 EKG normal sinus rhythm, normal EKG. 08/28/20 MRI right forefoot showed 5th toe swelling, osteomyelitis, right great toe, 5th metatarsal osteomyelitis. Right foot cultures done, right foot ulcer debrided. Vancomycin, Zosyn IV right foot osteomyelitis, right lower extremity cellulitis. 08/28/20 Monitor blood sugars. 08/29/20 Chest X-ray hyperinflation, central pulmonary artery prominence. 08/29/20 Infectious Disease recommended continuing Vancomycin, Zosyn, follow cultures. 08/29/20 Podiatry performed right foot 5th digit amputation, 5th metatarsal head resection with bone biopsy. 08/30/20 OxyIR for pain. A1c 10.5%, blood sugars poorly controlled, patient sees Endocrine. Patient states last A1c 8.2. 08/30/20 Infectious Disease recent cultures MRSA, Enterococcus, Klebsiella, Strep mitis/oralis, Diphtheroids. 08/31/20 Infectious Disease recommended IV Vancomycin/Ertapenem x 6 weeks. 09/01/20 Wound culture growing MRSA, Staph stimulans. 09/01/20 Admit to TCU with debility, here for rehabilitation, strengthening, intravenous antibiotics, wound care, prior to discharge home alone. Past Medical History Past Medical History (Chronic Problems): Chronic Problems (Last Updated 08/28/20 @ 17:[address] 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) 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) Benign essential hypertension (Chronic) Mixed hyperlipidemia (Chronic) Chronic ulcer of right foot with fat layer exposed (Chronic) Obesity (Chronic) Tobacco abuse (Chronic) Osteomyelitis, unspecified (Chronic) Chronic ulcer of left foot with fat layer exposed (Chronic) Osteomyelitis of left foot (Chronic) Diabetic ulcer of left foot (Chronic) Other specified peripheral vascular diseases (Chronic) Delayed wound healing (Chronic) Difficulty in walking, not elsewhere classified (Chronic) 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) Tobacco abuse counseling (Chronic) MRSA (methicillin resistant staph aureus) culture positive (Chronic) Ulcer of left foot with muscle involvement without evidence of necrosis (Chronic) Ulcer of left foot with necrosis of muscle (Chronic) History of transmetatarsal amputation of left foot (Chronic) Ulcer of right foot with fat layer exposed (Chronic) Ulcer of right lower extremity with fat layer exposed (Chronic) Chronic ulcer of right foot with necrosis of muscle (Chronic) no necrosis clarified Medical History: Medical History (Last Updated 08/28/20 @ 17:[address] Irene Claudio, DPM) BPH (benign prostatic hyperplasia) N40.0 Erectile dysfunction N52.9 Hyperlipidemia E78.5 Hypokalemia E87.6 Neuropathic pain M79.2 Obesity E66.9 Sleep apnea G47.30 Tobacco abuse Z72.0 Type 2 diabetes mellitus E11.9 HTN (hypertension) I10 Allergies Sulfa (Sulfonamide Antibiotics) Allergy (Verified 07/28/20 14:16) Rash Home Medications: Ambulatory Orders Medication Instructions Recorded Calcium Carbonate [Calcium] 500 mg PO DAILY 06/23/17 Multivitamin [Multiple Vitamins] 1 ea PO DAILY 06/23/17 atorvastatin 40 mg tablet 40 mg PO DAILY 10/18/19 bupropion HCl 150 mg 24 hr tablet, 150 mg PO BID tab 10/18/19 extended release tamsulosin 0.4 mg capsule 0.4 mg PO DAILY@1730 cap 10/18/19 gabapentin 300 mg capsule 600 mg PO TIDCM cap 04/24/20 aspirin 81 mg tablet,delayed 81 mg PO DAILY tab 07/28/20 release Insulin U-500 [Humulin R U-500 140 units SC DINNER 08/28/20 ([facility])] Insulin U-500 [Humulin R U-500 150 units SC BREAKFAST 08/28/20 ([facility])] Insulin U-500 [Humulin R U-500 160 units SC LUNCH 08/28/20 ([facility])] Acetaminophen [Tylenol Tablet] 650 mg PO Q8H PRN PRN tab 09/01/20 Blood Sugar Diagnostic [Onetouch See Rx Instructions .ROUTE 09/01/20 Verio Test Strip] .MEDSUPPLY Enoxaparin [Lovenox] 40 mg SC DAILY 09/01/20 Ertapenem Sodium [Ertapenem] 1 gm IV DAILY 09/01/20 Brett (unflavored) [Brett Packet] 1 packet PO BIDCM 09/01/20 Lancets See Rx Instructions .ROUTE 09/01/20 .MEDSUPPLY Lisinopril 40 mg PO DAILY 09/01/20 Nicotine [Nicoderm Cq] 21 mg TD DAILY 09/01/20 Vancomycin/0.9 % Sod Chloride 2 gm IV Q12H 09/01/20 [Vanco 2 Gram/500 ml-0.9% NaCl] Surgical History: Surgical History (Last Reviewed 07/31/20 @ 11:[address] Juan Arteaga MD) History of ankle surgery Z98.890 History of deviated nasal septum Z87.09 History of hernia repair Z98.890, Z87.19 History of oral surgery Z98.890 History of transmetatarsal amputation of left foot Z89.432 History of vasectomy Z98.52 Surgical History: herniorrhaphy, - - Surgery to the right ankle for fracture, Deviated nasal septum, oral surgery, left foot transmetatarsal amputation, vasectomy. Psychiatric History: No pertinent psych hx Lives: Alone Smoking Status: Heavy Smoker (>10/day) Tobacco Use: Cigarettes Alcohol: None Drugs: None - *Family History Maternal Family History: Family History (Last Reviewed 07/31/20 @ 11:[address] Juan Arteaga MD) Father Myocardial infarction Heart disease Mother Kidney disease Diabetes Sister Asthma Breast cancer Hypertension Brother Alcoholism Melanoma History Items: Diabetes, Renal Disease - on dialysis Paternal Family History: Family History (Last Reviewed 07/31/20 @ 11:[address] Juan Arteaga MD) Father Myocardial infarction Heart disease Mother Kidney disease Diabetes Sister Asthma Breast cancer Hypertension Brother Alcoholism Melanoma History Items: Heart Disease Sibling Family History: Family History (Last Reviewed 07/31/20 @ 11:[address] Juan Arteaga MD) Father Myocardial infarction Heart disease Mother Kidney disease Diabetes Sister Asthma Breast cancer Hypertension Brother Alcoholism Melanoma History Items: Cancer - breast cancer in his sister Review of Systems Constitutional: Denies: Chills, Fever, Weight Change HEENT: Denies: Head Aches, Sinus Congestion, Sinus Drainage Cardiovascular: Denies: Chest Pain, Palpitations Respiratory: Denies: Cough, Shortness of breath at rest, Sputum production Gastrointestinal: Denies: Abdominal Pain, Nausea, Vomiting Genitourinary: Denies: Dysuria Musculoskeletal: Denies: Joint Pain, Joint Tenderness Skin: Denies: Rash, Wounds Neurological: Denies: Numbness, Tingling, Focal weakness Psychiatric: Denies: Anxiety, Depression, Homicidal Ideations, Suicidal Ideations Hematologic/ Lymphatic: Denies: Easy Bruising, Easy Bleeding VTE Information - Inpt Only VTE Present on Admission: No VTE Mechan Device Prophylaxis: Knee High FRIDA Hose VTE Pharm Prophylaxis ordered?: Yes Patient Problems: Active and Suspected Problems (Last Updated 08/28/20 @ 17:[address] Irene Claudio, SUZETTE) Debility (Acute) Cellulitis of right lower limb (Acute) Osteomyelitis of right foot (Acute) - Physical Exam Vitals/I&O's: Vital Signs Temp Pulse Resp BP Pulse Ox 98.5 F 76 16 173/66 H 95 09/01/20 19:45 09/01/20 19:45 09/01/20 19:45 09/01/20 19:45 09/01/20 19:45 Oxygen Delivery Method Room Air Weight: 166.922 kg Body Mass Index (BMI) 47.2 Finger Stick Blood Glucose 137 General: Alert, Oriented x3, Cooperative HEENT: Atraumatic, PERRLA, EOMI, Normocephalic Neck: Supple, No JVD, Negative Carotid Bruits Lungs: Clear to auscultation, Normal air movement Cardiovascular: Regular rate, No murmurs Abdomen: Bowel Sounds Present, Soft, Non Tender Extremities: No edema, Capillary Refill Less than 3 Seconds, - - Bilateral feet dressed, PICC line left upper extremity. Skin: No rashes, No breakdown Musculoskeletal: No Tenderness to Palpation of Joints or Extremities Neurological: Cranial nerves II-XII grossly intact Psych/Mental Status: Normal Affect, Appropriate Current Medications Acetaminophen (Acetaminophen 325 Mg Tablet) 650 mg PO Q8H PRN PRN PRN Reason: Pain 1-10 or Fever Aspirin (Aspirin E.C. 81 Mg Tablet) 81 mg PO DAILY@0800 [facility] Atorvastatin Calcium (Atorvastatin Calcium 40 Mg Tablet) 40 mg PO DAILY [facility] Bupropion HCl (Bupropion (Sr) 150 Mg Tablet.Sa) 150 mg PO BID [facility] Calcium Carbonate (Calcium (Elemental) 500 Mg Tablet) 500 mg PO DAILY@0800 [facility] Enoxaparin Sodium (Enoxaparin 40 Mg/0.4 Ml Syringe) 40 mg SC DAILY [facility] Gabapentin (Gabapentin 600 Mg Tablet) 600 mg PO TIDCM [facility] Ertapenem 1 gm/ Sodium (Chloride) 50 mls @ 100 mls/hr IV DAILY@1000 ONE Stop: 09/02/20 10:29 Vancomycin HCl 2,000 mg/ (Sodium Chloride) 540 mls @ 250 mls/hr IV Q12H [facility] Insulin Human Regular (Insulin U-500 Pen) 140 units SC DINNER [facility] Insulin Human Regular (Insulin U-500 Pen) 160 units SC LUNCH [facility] Insulin Human Regular (Insulin U-500 Pen) 150 units SC BREAKFAST [facility] L-Arginine/L-Glutamine/Calcium HMB (Brett (Unflavored) Packet) 1 packet PO BI DCM [facility] Lisinopril (Lisinopril 40 Mg Tablet) 40 mg PO DAILY [facility] Multivitamins (Multivitamins,Therapeutic Tablet) 1 tablet PO DAILY@0800 [facility] Nicotine (Nicotine 21 Mg Patch) 21 mg TD DAILY [facility] Non-Formulary Medication (Vancomycin/0.9 % Sod Chloride [Vanco 2 Gram/500 Ml- 0.9% Nacl]) 2 gm IV Q12H [facility] Tamsulosin HCl (Tamsulosin Hcl 0.4 Mg Capsule) 0.4 mg PO DAILY@1730 [facility] Assessment/Plan All Active Problems (Last Updated 08/28/20 @ 17:[address] Irene Claudio, DPShad) Debility (Acute) Cellulitis of right lower limb (Acute) Osteomyelitis of right foot (Acute) 65 year old male with below past medical history hospitalized for right foot osteomyelitis, underwent right 5th toe amputation, right 5th metatarsal head resection 08/29/20, admitted to TCU with debility, here for rehabilitation, strengthening, intravenous antibiotics, wound care, prior to discharge home alone. * Debility - PT/OT. * Pain - Tylenol 1000MG Q6H PRN pain (1-10). * Bowel - Miralax 17GM daily, Senna/colace 1 tablet BID, MOM 30ML daily PRN, Dulcolax 10MG TN daily PRN. * Adult immunization - Administer Prevnar 13, Pneumovax 23, Fluzone as appropriate. * DVT prophylaxis - Lovenox 40MG SC daily. * CV prophylaxis - Aspirin 81MG daily. * Hyperlipidemia - Atorvastatin 40MG QHS. * Depression - Wellbutrin 150MG BID, stable chronic mcc use, GDR not recommended. * Calcium deficiency - Calcium 500MG daily. * Right foot osteomyelitis - Invanz 1GM daily, Vancomycin 2GM IV Q12H thru 10/10/20, consult Dr. Pathak, consult Dr. Powell. * Diabetic polyneuropathy - Gabapentin 600MG TID. * Diabetes Mellitus II - Humulin R U-500 150 units breakfast, 160 units lunch, 140 units supper. * Nutrition - Brett 1 packet BID, MVI daily. * Hypertension - Lisinopril 40MG daily. * Tobacco Abuse - Nicotine 21MG patch daily. * BPH - Tamsulosin 0.4MG daily.
[2020-09-01 22:01] LABS: Bedside Glucose 57 mg/dL (70-110)
[2020-09-01] MEDS: 0.9% Saline Lock 10 ML Syringe IV (22:58)
[2020-09-01 23:01] VITALS: BMI 47.2
[2020-09-01 23:10] LABS: Bedside Glucose 58 mg/dL (70-110)
[2020-09-01 23:50] LABS: Bedside Glucose 84 mg/dL (70-110)
--- NOTE | 2020-09-02 02:44 | PCM.RX.CS ---
Consult Pharmacy has been consulted to manage selected antiobiotic: Vancomycin Type of Consult: New start Suspected Infection: Osteomyelitis Prior Doses of Antibiotics Received/Current Regimen: Medications Vancomycin HCl 2,000 mg/ (Sodium Chloride) 540 mls @ 250 mls/hr IV Q12H GT Stop: 10/10/20 10:59 Last Admin: 09/02/20 01:46 Dose: Infused Documented by: Weight used for dosin kg Estimated Creatinine Clearance: 107 Goal Trough: 15-20 mcg/mL Pharmacy Plan for Drug Dosing: Pharmacy Service will continue to monitor and adjust dosing as required. Follow-Up Labs: Trough Vancomycin - draw 30 minutes before 4th dose Labs to be done on [date and time ordered]: 09/03/20 1030 draw weekly levels
[2020-09-02 04:42] VITALS: BP 159/77; PULSE 86; RESP 18; TEMP 36.4; O2SAT 94
[2020-09-02] MEDS: Enoxaparin 40 MG/0.4 ML Syringe SC (04:44)
[2020-09-02] MEDS: Senna/Docusate Sodium 1 Tablet PO ×2 (04:44→17:59)
[2020-09-02] MEDS: buPROPion (SR) 150 MG Tablet.SA PO ×2 (04:45→17:59)
[2020-09-02] MEDS: Lisinopril 40 MG Tablet PO (04:46)
[2020-09-02] MEDS: Atorvastatin Calcium 40 MG Tablet PO (04:48)
[2020-09-02 06:35] LABS: Bedside Glucose 47 mg/dL (70-110)
--- NOTE | 2020-09-02 06:43 | NURSING ---
Dr. Meyer notified of patients bloods sugars running low. New orders given
[2020-09-02 06:56] LABS: Bedside Glucose 84 mg/dL (70-110)
[2020-09-02 08:05] LABS: Absolute Lymphocyte Count 1.85 X10^3/uL (0.83-4.51); Absolute Neutrophil Count 6.3 X10^3/uL (2.0-7.7); Basophil# 0.08 X10^3/uL; Basophil% 0.8 % (0-1); Eosinophil# 0.44 X10^3/uL; Eosinophils% 4.6 % (0-5); Hematocrit 40.8 % (40-54); Hemoglobin 12.8 g/dL (13.0-16.5); Lymphocyte # 1.85 X10^3/ul (4.0); Lymphocyte % 19.4 % (19-41); Mean Corp Hgb Conc 31.4 g/dL (32-36); Mean Corpuscular Hgb 28.6 pg (27.0-32.0); Mean Corpuscular Volume 91.1 fL (80-94); Monocyte# 0.75 X10^3/uL; Monocyte% 7.9 % (0-10); NRBC Flagged by Analyzer 0 % (0-5); Neutrophil # 6.26 X10^3/uL (2.7-7.7); Neutrophil % 65.8 % (47-70); Platelet Count 242 K/mm3 (150-450); RBC Distribution Width CV 14.4 % (11.6-14.6); RBC Distribution Width SD 48.2 fl (35.1-43.9); Red Blood Count 4.48 M/mm3 (4.6-6.2); White Blood Count 9.5 K/mm3 (4.4-11.0)
[2020-09-02 08:13] LABS: Anion Gap 2 (5-15); BUN 12 mg/dL (7-18); BUN/Creat Ratio 15.7 RATIO (10-20); Calcium,Total 8.9 mg/dL (8.5-10.1); Chloride 109 mmol/L (98-107); Creatinine, Serum 0.76 mg/dL (0.70-1.30); EST Glomerular Filtration Rate 109 mL/min (>60); Est Glom Filt Rate - Afr Amer 132 mL/min (>60); Estimated Creatinine Clearance 114.17 ml/min; Glucose 107 mg/dL (74-106); Potassium 4.1 mmol/L (3.5-5.1); Sodium Level 141 mmol/L (136-145)
[2020-09-02] MEDS: Gabapentin 600 MG Tablet PO ×3 (09:20→17:59)
[2020-09-02] MEDS: Juven (unflavored) Packet 1 PACKET PO ×2 (09:20→17:59)
[2020-09-02 09:21] LABS: Bedside Glucose 183 mg/dL (70-110)
[2020-09-02] MEDS: Aspirin E.C. 81 MG Tablet PO (09:21)
[2020-09-02] MEDS: Calcium (Elemental) 500 MG Tablet PO (09:21)
[2020-09-02] MEDS: Multivitamins,Therapeutic Tablet 1 TABLET PO (09:21)
[2020-09-02] MEDS: 0.9% Saline Lock 10 ML Syringe IV ×2 (10:12→13:30)
[2020-09-02] MEDS: Tuberculin,Purif.prot.deriv. 50 TU/ML Vial 5 ML ID (11:05)
[2020-09-02 11:25] LABS: Bedside Glucose 240 mg/dL (70-110)
[2020-09-02] MEDS: Acetaminophen 500 MG Tablet 1000 MG PO ×2 (13:30→22:53)
[2020-09-02 16:33] VITALS: BP 161/75; PULSE 75; RESP 22; TEMP 36.7; O2SAT 93
[2020-09-02 17:25] LABS: Bedside Glucose 185 mg/dL (70-110)
[2020-09-02] MEDS: Tamsulosin HCl 0.4 MG Capsule PO (17:59)
[2020-09-02] MEDS: Povidone-Iodine Swabstick 1 PACKET TOPICAL (19:39)
[2020-09-02 22:05] LABS: Bedside Glucose 203 mg/dL (70-110)
[2020-09-03 06:26] LABS: Bedside Glucose 207 mg/dL (70-110)
[2020-09-03 06:40] VITALS: BP 148/52; PULSE 75; RESP 18; TEMP 36.6; O2SAT 93
[2020-09-03] MEDS: Lisinopril 40 MG Tablet PO (06:46)
[2020-09-03] MEDS: Atorvastatin Calcium 40 MG Tablet PO (06:46)
[2020-09-03] MEDS: Senna/Docusate Sodium 1 Tablet PO ×2 (06:47→18:08)
[2020-09-03] MEDS: buPROPion (SR) 150 MG Tablet.SA PO ×2 (06:47→18:08)
[2020-09-03] MEDS: Enoxaparin 40 MG/0.4 ML Syringe SC (06:52)
[2020-09-03] MEDS: Juven (unflavored) Packet 1 PACKET PO (08:23)
[2020-09-03] MEDS: Gabapentin 600 MG Tablet PO ×3 (08:24→18:08)
[2020-09-03] MEDS: Aspirin E.C. 81 MG Tablet PO (08:24)
[2020-09-03] MEDS: Multivitamins,Therapeutic Tablet 1 TABLET PO (08:24)
[2020-09-03] MEDS: Calcium (Elemental) 500 MG Tablet PO (08:24)
[2020-09-03] MEDS: Acetaminophen 500 MG Tablet 1000 MG PO (08:31)
--- NOTE | 2020-09-03 10:09 | NURSING ---
PT COMPLAINED OF 4/10 PAIN ON RIGHT LOWER LEG. NO REDNESS,WARM TO TOUCH,SLIGHTLY SWOLLEN. NOT TENDER. REPORTED TO RN
[2020-09-03] MEDS: 0.9% Saline Lock 10 ML Syringe IV ×2 (10:36→11:56)
[2020-09-03 10:45] VITALS: PULSE 73; RESP 18; O2SAT 93
[2020-09-03 11:10] LABS: Bedside Glucose 260 mg/dL (70-110)
[2020-09-03] MEDS: Povidone-Iodine Swabstick 1 PACKET TOPICAL (11:18)
[2020-09-03 11:30] LABS: Vancomycin, Trough Level 9.4 ug/mL (5.0-15.0)
--- NOTE | 2020-09-03 12:29 | CON.PCM_ITS ---
Problem List (1) Diabetes mellitus Status: Chronic (2) Diabetic polyneuropathy Status: Chronic (3) Peripheral vascular disease Status: Suspected (4) Chronic ulcer of right foot with fat layer exposed Status: Chronic (5) Osteomyelitis, unspecified Status: Chronic (6) Diabetic ulcer of left foot Status: Chronic Qualifiers: Diabetic foot ulcer location: midfoot Diabetes mellitus type: type 2 (7) Difficulty in walking, not elsewhere classified Status: Chronic (8) MRSA (methicillin resistant staph aureus) culture positive Status: Chronic (9) History of transmetatarsal amputation of left foot Status: Chronic (10) Cellulitis of right lower limb Status: Acute (11) Osteomyelitis of right foot Status: Acute Reason for Consult Date of Consultation: 09/03/20 Reason for Consultation: bilateral foot ulcers History of Present Illness: The patient is a 65 year old M who was sent for admission following appointment at Dr. 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 Patient is also noted to have a total contact cast to his left lower extremity for another ulceration. Significant medical history and comorbidities. Patient was admitted and labs and imaging were obtained. Patient started on IV antibiotics. ID and medicine were consulted. Imaging showed osteomyelitis of the right fifth metatarsal and proximal phalanx. Patient went to surgery for amputation of the fifth digit and partial fifth metatarsal. This was performed with Dr. Powell on 08/29/2020. The ulceration to his right foot was partially closed at that time. Cultures from the office demonstrated a polymicrobial infection. Cultures from the operating room showed remaining positive bone margins. ID recommendations were to start patient on l anshu-term course of IV antibiotics and the PICC line was placed. Patient was sent to facility on vancomycin and ertapenem per ID recommendations. Podiatry continue to follow with daily monitoring. It was noted that the incision site had a area of central maceration which was concerning for wound breakdown and Betadine and alginate were started as well as twice daily dressing changes as patient was having significant amount of serous drainage. Seem to stabilize and will continue with the dressing changes at the facility as well. The cast to the left foot was removed and the wound on the plantar aspect of the left medial foot was examined should be noted the patient has a TMA on the side. Dressings were also applied and changed daily on this foot. Patient was weaned off of opioids. Patient was transferred to TCU for further care, monitoring, and recovering. Past Medical History Past Medical History (Chronic Problems): Chronic Problems (Last Updated 08/28/20 @ 17:[address] 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) 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) Benign essential hypertension (Chronic) Mixed hyperlipidemia (Chronic) Chronic ulcer of right foot with fat layer exposed (Chronic) Obesity (Chronic) Tobacco abuse (Chronic) Osteomyelitis, unspecified (Chronic) Chronic ulcer of left foot with fat layer exposed (Chronic) Osteomyelitis of left foot (Chronic) Diabetic ulcer of left foot (Chronic) Other specified peripheral vascular diseases (Chronic) Delayed wound healing (Chronic) Difficulty in walking, not elsewhere classified (Chronic) 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) Tobacco abuse counseling (Chronic) MRSA (methicillin resistant staph aureus) culture positive (Chronic) Ulcer of left foot with muscle involvement without evidence of necrosis (Chronic) Ulcer of left foot with necrosis of muscle (Chronic) History of transmetatarsal amputation of left foot (Chronic) Ulcer of right foot with fat layer exposed (Chronic) Ulcer of right lower extremity with fat layer exposed (Chronic) Chronic ulcer of right foot with necrosis of muscle (Chronic) no necrosis clarified Medical History: Medical History (Last Updated 08/28/20 @ 17:[address] Irene Claudio, DPM) BPH (benign prostatic hyperplasia) N40.0 Erectile dysfunction N52.9 Hyperlipidemia E78.5 Hypokalemia E87.6 Neuropathic pain M79.2 Obesity E66.9 Sleep apnea G47.30 Tobacco abuse Z72.0 Type 2 diabetes mellitus E11.9 HTN (hypertension) I10 Allergies Sulfa (Sulfonamide Antibiotics) Allergy (Verified 07/28/20 14:16) Rash Home Medications: Ambulatory Orders Medication Instructions Recorded Calcium Carbonate [Calcium] 500 mg PO DAILY 06/23/17 Multivitamin [Multiple Vitamins] 1 ea PO DAILY 06/23/17 atorvastatin 40 mg tablet 40 mg PO DAILY 10/18/19 bupropion HCl 150 mg 24 hr tablet, 150 mg PO BID tab 10/18/19 extended release tamsulosin 0.4 mg capsule 0.4 mg PO DAILY@1730 cap 10/18/19 gabapentin 300 mg capsule 600 mg PO TIDCM cap 04/24/20 aspirin 81 mg tablet,delayed 81 mg PO DAILY tab 07/28/20 release Insulin U-500 [Humulin R U-500 140 units SC DINNER 08/28/20 ([facility])] Insulin U-500 [Humulin R U-500 150 units SC BREAKFAST 08/28/20 ([facility])] Insulin U-500 [Humulin R U-500 160 units SC LUNCH 08/28/20 ([facility])] Acetaminophen [Tylenol Tablet] 650 mg PO Q8H PRN PRN tab 09/01/20 Blood Sugar Diagnostic [Onetouch See Rx Instructions .ROUTE 09/01/20 Verio Test Strip] .MEDSUPPLY Enoxaparin [Lovenox] 40 mg SC DAILY 09/01/20 Ertapenem Sodium [Ertapenem] 1 gm IV DAILY 09/01/20 Brett (unflavored) [Brett Packet] 1 packet PO BIDCM 09/01/20 Lancets See Rx Instructions .ROUTE 09/01/20 .MEDSUPPLY Lisinopril 40 mg PO DAILY 09/01/20 Nicotine [Nicoderm Cq] 21 mg TD DAILY 09/01/20 Vancomycin/0.9 % Sod Chloride 2 gm IV Q12H 09/01/20 [Vanco 2 Gram/500 ml-0.9% NaCl] Surgical History: Surgical History (Last Reviewed 07/31/20 @ 11:[address] Juan Arteaga MD) History of ankle surgery Z98.890 History of deviated nasal septum Z87.09 History of hernia repair Z98.890, Z87.19 History of oral surgery Z98.890 History of transmetatarsal amputation of left foot Z89.432 History of vasectomy Z98.52 Surgical History: herniorrhaphy, - - Surgery to the right ankle for fracture, Deviated nasal septum, oral surgery, left foot transmetatarsal amputation, vasectomy. Psychiatric History: No pertinent psych hx Lives: Alone Smoking Status: Heavy Smoker (>10/day) Tobacco Use: Cigarettes Alcohol: None Drugs: None - *Family History Maternal Family History: Family History (Last Reviewed 07/31/20 @ 11:[address] Juan Arteaga MD) Father Myocardial infarction Heart disease Mother Kidney disease Diabetes Sister Asthma Breast cancer Hypertension Brother Alcoholism Melanoma History Items: Diabetes, Renal Disease - on dialysis Paternal Family History: Family History (Last Reviewed 07/31/20 @ 11:[address] Juan Arteaga MD) Father Myocardial infarction Heart disease Mother Kidney disease Diabetes Sister Asthma Breast cancer Hypertension Brother Alcoholism Melanoma History Items: Heart Disease Sibling Family History: Family History (Last Reviewed 07/31/20 @ 11:[address] Juan Arteaga MD) Father Myocardial infarction Heart disease Mother Kidney disease Diabetes Sister Asthma Breast cancer Hypertension Brother Alcoholism Melanoma History Items: Cancer - breast cancer in his sister Review of Systems Constitutional: Denies: Chills, Fever Cardiovascular: Denies: Chest Pain Respiratory: Denies: Cough, Shortness of Breath Musculoskeletal: Reports: Foot Pain - phantom limb, improved Skin: Reports: Wounds - bilateral feet Neurological: Reports: Numbness, Tingling Patient Problems: Active and Suspected Problems (Last Updated 08/28/20 @ 17:58 by BALBIR Chirinos) Debility (Acute) Peripheral vascular disease (Suspected) Cellulitis of right lower limb (Acute) Osteomyelitis of right foot (Acute) - Physical Exam Vitals/I&O's: Vital Signs Temp Pulse Resp BP Pulse Ox 97.8 F 75 18 148/52 H 93 09/03/20 06:40 09/03/20 06:40 09/03/20 06:40 09/03/20 06:40 09/03/20 06:40 Oxygen Delivery Method Room Air Weight: 166.922 kg Body Mass Index (BMI) 47.2 Finger Stick Blood Glucose 137 Intake and Output for Last 24 Hours 09/01/20 09/02/20 09/03/20 23:59 23:59 23:59 Intake Total 2601.25 / 2601.25 1310 / 1310 Output Total 800 / 800 Balance 1801.25 / 1801.25 1310 / 1310 General: Alert, Oriented x3 HEENT: Atraumatic Extremities: No clubbing, No cyanosis, Capillary Refill Less than 3 Seconds, No Calf Tenderness, Diminished Peripheral Pulses, Edema Skin: Ulcer/ Wound - Ulceration noted to left plantar medial foot. There is surrounding callus tissue noted as well. This is a chronic ulceration no signs of active infection. Wound has granular base, Incision - Incision to right lateral foot with decreased maceration noted to central incision. Moderate amount of serous drainage noted on dressing. Sutures intact skin well coapted. Small central ulceration. Skin edges are warm capillary fill time is normal Musculoskeletal: - - TMA left foot, right fifth ray resection Neurological: - - Decreased epicritic sensation consistent with neuropathy Psych/Mental Status: Normal Affect, Appropriate, Alert and oriented to time, place, person, mood and affect Laboratory Results 09/02/20 17:01: POC Glucose 185 H 09/02/20 21:43: POC Glucose 203 H 09/03/20 06:15: POC Glucose 207 H 09/03/20 10:30: Vancomycin Trough 9.4 09/03/20 10:59: POC Glucose 260 H Current Medications Acetaminophen (Acetaminophen 500 Mg Tablet) 1,000 mg PO Q6H PRN PRN Reason: Pain Score 1-10 Last Admin: 09/03/20 08:31 Dose: 1,000 mg Documented by: Alteplase, Recombinant (Alteplase 2 Mg/2 Ml Vial) 2 mg IV X1 ONE Stop: 09/03/20 13:01 Aspirin (Aspirin E.C. 81 Mg Tablet) 81 mg PO DAILY@0800 [facility] Last Admin: 09/03/20 08:24 Dose: 81 mg Documented by: Atorvastatin Calcium (Atorvastatin Calcium 40 Mg Tablet) 40 mg PO DAILY [facility] Last Admin: 09/03/20 06:46 Dose: 40 mg Documented by: Bisacodyl (Bisacodyl 10 Mg Suppository) 10 mg RECTAL DAILY PRN PRN Reason: Constipation Bupropion HCl (Bupropion (Sr) 150 Mg Tablet.Sa) 150 mg PO BID [facility] Last Admin: 09/03/20 06:47 Dose: 150 mg Documented by: Calcium Carbonate (Calcium (Elemental) 500 Mg Tablet) 500 mg PO DAILY@0800 [facility] Last Admin: 09/03/20 08:24 Dose: 500 mg Documented by: Enoxaparin Sodium (Enoxaparin 40 Mg/0.4 Ml Syringe) 40 mg SC DAILY [facility] Last Admin: 09/03/20 06:52 Dose: 40 mg Documented by: Gabapentin (Gabapentin 600 Mg Tablet) 600 mg PO TIDCM [facility] Last Admin: 09/03/20 12:02 Dose: 600 mg Documented by: Heparin Sodium (Beef Lung) (Heparin Pf Lock 10 Units/Ml 50 Units/5 Ml Syringe) 50 units IV UD PRN PRN Reason: PICC Line Heparin Flush Vancomycin HCl 2,000 mg/ (Sodium Chloride) 540 mls @ 250 mls/hr IV Q12H [facility] Stop: 10/10/20 10:59 Last Infusion: 09/03/20 02:29 Dose: Infused Documented by: Sodium Chloride () 250 mls @ 15 mls/hr IV .[id number] PRN PRN Reason: Saline Flush Last Infusion: 09/02/20 15:37 Dose: 0 mls/hr Documented by: Sodium Chloride () 250 mls @ 15 mls/hr IV .[id number] PRN PRN Reason: Additional IVPB Infusion Ertapenem 1 gm/ Sodium (Chloride) 50 mls @ 100 mls/hr IV DAILY@1000 [facility] Stop: 10/10/20 10:29 Last Infusion: 09/03/20 11:18 Dose: Infused Documented by: Insulin Human Regular (Insulin U-500 Pen) 100 units SC DINNER [facility] Last Admin: 09/02/20 17:59 Dose: 100 units Documented by: Insulin Human Regular (Insulin U-500 Pen) 100 units SC BREAKFAST [facility] Last Admin: 09/03/20 08:24 Dose: 100 u Documented by: Insulin Human Regular (Insulin U-500 Pen) 100 units SC LUNCH [facility] Last Admin: 09/03/20 12:01 Dose: 100 units Documented by: L-Arginine/L-Glutamine/Calcium HMB (Brett (Unflavored) Packet) 1 packet PO BIDCM [facility] Last Admin: 09/03/20 08:23 Dose: 1 packet Documented by: Lisinopril (Lisinopril 40 Mg Tablet) 40 mg PO DAILY [facility] Last Admin: 09/03/20 06:46 Dose: 40 mg Documented by: Magnesium Hydroxide (Magnesium Hydroxide 30 Ml Udc) 30 ml PO DAILY PRN PRN Reason: Constipation Multivitamins (Multivitamins,Therapeutic Tablet) 1 tablet PO DAILY@0800 [facility] Last Admin: 09/03/20 08:24 Dose: 1 tablet Documented by: Nicotine (Nicotine 21 Mg Patch) 21 mg TD DAILY [facility] Last Admin: 09/03/20 06:47 Dose: 21 mg Documented by: Polyethylene Glycol (Polyethylene Glycol 3350 17 Gm Packet) 17 gm PO DAILY [facility] Last Admin: 09/03/20 06:52 Dose: Not Given Documented by: Povidone Iodine (Povidone-Iodine Swabstick) 1 packet TOPICAL 1000 GT; Protocol Last Admin: 09/03/20 11:18 Dose: 1 packet Documented by: Senna/Docusate Sodium (Senna/Docusate Sodium 1 Tablet) 1 tablet PO BID [facility] Last Admin: 09/03/20 06:47 Dose: 1 tablet Documented by: Sodium Chloride (0.9% Saline Lock 10 Ml Syringe) 10 - 40 ml IV UD PRN PRN Reason: Open End PICC Flush Last Admin: 09/03/20 11:56 Dose: 20 ml Documented by: Sodium Chloride (0.9 % Nacl (Sterile) Posiflush 10 Ml) 10 - 40 ml IV UD PRN PRN Reason: Port access or dressing change Tamsulosin HCl (Tamsulosin Hcl 0.4 Mg Capsule) 0.4 mg PO DAILY@1730 [facility] Last Admin: 09/02/20 17:59 Dose: 0.4 mg Documented by: Tuberculin PPD (Tuberculin,Purif.Prot.Deriv. 50 Tu/Ml Vial) 5 tu ID X1 ONE Stop: 09/09/20 10:01 Assessment/Plan All Active Problems (Last Updated 08/28/20 @ 17:[address] Irene Claudio, DP) Debility (Acute) Cellulitis of right lower limb (Acute) Osteomyelitis of right foot (Acute) Right foot infection Osteomyelitis fifth metatarsal is suspected Uncontrolled diabetes with neuropathy bilateral foot ulcers Other comorbidities include tobacco abuse, obesity, sleep apnea, hyperlipidemia, hypertension, prior stage II kidney disease, BPH Right foot infection Osteomyelitis fifth metatarsal s/p 5th ray resection right foot 08/29/[address] Powell Uncontrolled diabetes with neuropathy bilateral foot ulcers Hx TMA left foot Other comorbidities include tobacco abuse, obesity, sleep apnea, hyperlipidemia, hypertension, prior stage II kidney disease, BPH Patient seen and examined Patient has no pain in surgical foot due to neuropathy Dressing changed today with heavy serous drainage noted to right foot. Recommend changing at least BID on right side. Right foot dressed with betadine, silver alginate, 4x4, abd, kerlix, guerrero. Will consider changing dressing less frequently as amount of drainage and maceration decreases. Left foot dressed with aquacel, 4x4, kerlix to be done daily. Continue wound care Cultures from OR show staph aureus growing in the bone. Cultures from office growing methacillin resistiant staph aureus, kelbsiella, enterobacter, strepp mitis, corynebacterium PVRs from April 2020 were reviewed showing an KANDI of 0.94 which should show adequate blood flow for healing after surgery left ulceration noted to plantar medial foot with surrounding callus tissue. Patient also has a TMA on the left side Due to patient having ulcerations on both feet he is unable to be no nweightbearing to both the ulcerative and the surgical site. This would be ideal but not feasible. Patient is to limit weightbearing and focus on heel weightbearing as much as possible in Surgical shoes Continue IV antibiotics per ID Follow ID recommendations who recommend PICC line and long-term IV antibiotics Please not hesitate to call if you have any questions. Thank you for the consult Podiatry will continue to follow
[2020-09-03] MEDS: Alteplase 2 MG/2 ML Vial IV ×2 (13:15)
--- NOTE | 2020-09-03 13:54 | NURSING ---
IN TO CHANGE PT DRESSINGS TO FEET.
--- NOTE | 2020-09-03 14:00 | NURSING ---
pt given cath lisbeth x2 via dual picc d/t total occlusion, effective. good blood return to both lines.
[2020-09-03 15:43] VITALS: BP 152/63; PULSE 78; RESP 16; TEMP 36.8; O2SAT 94
[2020-09-03 17:20] LABS: Bedside Glucose 250 mg/dL (70-110)
[2020-09-03] MEDS: Tamsulosin HCl 0.4 MG Capsule PO (18:08)
--- NOTE | 2020-09-03 19:00 | PCM.RX.CS ---
Consult Pharmacy has been consulted to manage selected antiobiotic: Vancomycin Type of Consult: Follow-up Labs: Sodium 141 mmol/L (136-145) 09/02/20 07:34 Potassium 4.1 mmol/L (3.5-5.1) 09/02/20 07:34 Chloride 109 mmol/L (98-107) H 09/02/20 07:34 Carbon Dioxide 30.0 mmol/L (21.0-32.0) 09/02/20 07:34 Anion Gap 2 (5-15) L 09/02/20 07:34 BUN 12 mg/dL (7-18) 09/02/20 07:34 Creatinine 0.76 mg/dL (0.70-1.30) 09/02/20 07:34 Est GFR (MDRD) Af Amer 132 mL/min (>60) 09/02/20 07:34 Est GFR (MDRD) Non-Af 109 mL/min (>60) 09/02/20 07:34 BUN/Creatinine Ratio 15.7 RATIO (10-20) 09/02/20 07:34 Glucose 107 mg/dL (74-106) H 09/02/20 07:34 Vancomycin Trough 9.4 ug/mL (5.0-15.0) 09/03/20 10:30 Weight used for dosin kg Goal Trough: 15-20 mcg/mL Pharmacy Plan for Drug Dosing: Trough below goal but with large BMI and 14 hour trough, recommend to continue max q12h dosing and check trough again in 48 hours. Pharmacy Service will continue to monitor and adjust dosing as required. Follow-Up Labs: Trough Vancomycin - 09/05 1030
[2020-09-03 21:36] LABS: Bedside Glucose 266 mg/dL (70-110)
[2020-09-04] MEDS: Senna/Docusate Sodium 1 Tablet PO ×2 (06:01→17:37)
[2020-09-04] MEDS: Enoxaparin 40 MG/0.4 ML Syringe SC (06:01)
[2020-09-04] MEDS: Atorvastatin Calcium 40 MG Tablet PO (06:01)
[2020-09-04] MEDS: buPROPion (SR) 150 MG Tablet.SA PO ×2 (06:01→17:36)
[2020-09-04] MEDS: Lisinopril 40 MG Tablet PO (06:01)
[2020-09-04 06:06] VITALS: BP 145/61; PULSE 85; RESP 18; TEMP 36.6; O2SAT 95
[2020-09-04 06:21] LABS: Bedside Glucose 186 mg/dL (70-110)
[2020-09-04] MEDS: Gabapentin 600 MG Tablet PO ×3 (08:57→17:36)
[2020-09-04] MEDS: Multivitamins,Therapeutic Tablet 1 TABLET PO (08:57)
[2020-09-04] MEDS: Aspirin E.C. 81 MG Tablet PO (08:58)
[2020-09-04] MEDS: Calcium (Elemental) 500 MG Tablet PO (08:58)
[2020-09-04] MEDS: Juven (unflavored) Packet 1 PACKET PO ×2 (08:59→17:32)
[2020-09-04] MEDS: 0.9% Saline Lock 10 ML Syringe IV (11:24)
[2020-09-04 11:31] LABS: Bedside Glucose 281 mg/dL (70-110)
--- NOTE | 2020-09-04 14:20 | PHA.CONS_ITS ---
<DoriLove M - Last Filed: 09/04/20 14:20> Progress Note - Pharmacy Subjective: TCU ADMISSION Objective: Allergies Sulfa (Sulfonamide Antibiotics) Allergy (Verified 07/28/20 14:16) Rash Current Medications Generic Name Dose Route Start Last Admin Trade Name Freq PRN Reason Stop Dose Admin Acetaminophen 1,000 mg 09/01/20 21:42 09/03/20 08:31 Acetaminophen 500 Mg Tablet PO 1,000 mg Q6H PRN Administration Pain Score 1-10 Aspirin 81 mg 09/02/20 08:00 09/04/20 08:58 Aspirin E.C. 81 Mg Tablet PO 81 mg DAILY@0800 GT Administration Atorvastatin Calcium 40 mg 09/02/20 06:00 09/04/20 06:01 Atorvastatin Calcium 40 Mg Tablet PO 40 mg DAILY GT Administration Bisacodyl 10 mg 09/01/20 21:41 Bisacodyl 10 Mg Suppository RECTAL DAILY PRN Constipation Bupropion HCl 150 mg 09/02/20 06:00 09/04/20 06:01 Bupropion (Sr) 150 Mg Tablet.Sa PO 150 mg BID GT Administration Calcium Carbonate 500 mg 09/02/20 08:00 09/04/20 08:58 Calcium (Elemental) 500 Mg Tablet PO 500 mg DAILY@0800 GT Administration Enoxaparin Sodium 40 mg 09/02/20 06:00 09/04/20 06:01 Enoxaparin 40 Mg/0.4 Ml Syringe SC 40 mg DAILY GT Administration Gabapentin 600 mg 09/02/20 07:45 09/04/20 12:16 Gabapentin 600 Mg Tablet PO 600 mg TIDCM GT Administration Heparin Sodium (Beef Lung) 50 units 09/01/20 22:06 Heparin Pf Lock 10 Units/Ml 50 Units/5 Ml Syringe IV UD PRN PICC Line Heparin Flush Vancomycin HCl 2,000 mg/ 540 mls @ 250 mls/hr 09/01/20 23:00 09/04/20 12:15 Sodium Chloride IV 10/10/20 10:59 250 mls/hr Q12H GT Administration Sodium Chloride 250 mls @ 15 mls/hr 09/01/20 22:06 09/04/20 13:17 IV 0 mls/hr .[id number] PRN Infusion Saline Flush Sodium Chloride 250 mls @ 15 mls/hr 09/01/20 22:06 IV .[id number] PRN Additional IVPB Infusion Ertapenem 1 gm/ Sodium 50 mls @ 100 mls/hr 09/03/20 10:00 09/04/20 13:16 Chloride IV 10/10/20 10:29 Infused DAILY@1000 GT Infusion Insulin Human Regular 120 units 09/05/20 08:00 Insulin U-500 Pen SC BREAKFAST GT Insulin Human Regular 120 units 09/04/20 17:00 Insulin U-500 Pen SC DINNER GT Insulin Human Regular 120 units 09/05/20 12:00 Insulin U-500 Pen SC LUNCH GT L-Arginine/L-Glutamine/Calcium HMB 1 packet 09/02/20 08:00 09/04/20 08:59 Brett (Unflavored) Packet PO 1 packet BIDCM GT Administration Lisinopril 40 mg 09/02/20 06:00 09/04/20 06:01 Lisinopril 40 Mg Tablet PO 40 mg DAILY GT Administration Magnesium Hydroxide 30 ml 09/01/20 21:40 Magnesium Hydroxide 30 Ml Udc PO DAILY PRN Constipation Multivitamins 1 tablet 09/02/20 08:00 09/04/20 08:57 Multivitamins,Therapeutic Tablet PO 1 tablet DAILY@0800 GT Administration Nicotine 21 mg 09/02/20 06:00 09/04/20 06:01 Nicotine 21 Mg Patch TD 21 mg DAILY GT Administration Polyethylene Glycol 17 gm 09/02/20 06:00 09/04/20 06:04 Polyethylene Glycol 3350 17 Gm Packet PO Not Given DAILY GT Povidone Iodine 1 packet 09/02/20 10:00 09/03/20 11:18 Povidone-Iodine Swabstick TOPICAL 1 packet 1000 GT Administration Protocol Senna/Docusate Sodium 1 tablet 09/02/20 06:00 09/04/20 06:01 Senna/Docusate Sodium 1 Tablet PO 1 tablet BID GT Administration Sodium Chloride 10 - 40 ml 09/01/20 22:06 09/04/20 11:24 0.9% Saline Lock 10 Ml Syringe IV 40 ml UD PRN Administration Open End PICC Flush Sodium Chloride 10 - 40 ml 09/01/20 22:06 0.9 % Nacl (Sterile) Posiflush 10 Ml IV UD PRN Port access or dressing change Tamsulosin HCl 0.4 mg 09/02/20 17:30 09/03/20 18:08 Tamsulosin Hcl 0.4 Mg Capsule PO 0.4 mg DAILY@1730 GT Administration Tuberculin PPD 5 tu 09/09/20 10:00 Tuberculin,Purif.Prot.Deriv. 50 Tu/Ml Vial ID 09/09/20 10:01 X1 ONE Problem List (Last Updated 08/28/20 @ 17:[address] Irene Claudio, DP) Debility (Acute) Diabetes mellitus (Chronic) Diabetic polyneuropathy (Chronic) Hyperlipidemia (Chronic) BPH (benign prostatic hyperplasia) (Chronic) Peripheral vascular disease (Suspected) Chronic ulcer of right foot with fat layer exposed (Chronic) Tobacco abuse (Chronic) Osteomyelitis, unspecified (Chronic) Diabetic ulcer of left foot (Chronic) Difficulty in walking, not elsewhere classified (Chronic) MRSA (methicillin resistant staph aureus) culture positive (Chronic) History of transmetatarsal amputation of left foot (Chronic) Cellulitis of right lower limb (Acute) Osteomyelitis of right foot (Acute) Vital Signs Temp Pulse Resp BP Pulse Ox 97.8 F 85 18 145/61 H 95 09/04/20 06:06 09/04/20 06:06 09/04/20 06:06 09/04/20 06:06 09/04/20 06:06 Oxygen Delivery Method Room Air Weight: 166.922 kg Body Mass Index (BMI) 47.2 Finger Stick Blood Glucose 137 Sodium 141 mmol/L (136-145) 09/02/20 07:34 Potassium 4.1 mmol/L (3.5-5.1) 09/02/20 07:34 Chloride 109 mmol/L (98-107) H 09/02/20 07:34 Carbon Dioxide 30.0 mmol/L (21.0-32.0) 09/02/20 07:34 Anion Gap 2 (5-15) L 09/02/20 07:34 BUN 12 mg/dL (7-18) 09/02/20 07:34 Creatinine 0.76 mg/dL (0.70-1.30) 09/02/20 07:34 Est GFR (MDRD) Af Amer 132 mL/min (>60) 09/02/20 07:34 Est GFR (MDRD) Non-Af 109 mL/min (>60) 09/02/20 07:34 BUN/Creatinine Ratio 15.7 RATIO (-20) 09/02/20 07:34 Glucose 107 mg/dL (74-106) H 09/02/20 07:34 Vancomycin Trough 9.4 ug/mL (5.0-15.0) 09/03/20 10:30 Assessment/Plan: 1. Pain: Tylenol 1000mg PO Q6h PRN Pain -07/01. Please continue to monitor for increased/decreased S/S pain, PRN medication usage. 2. R-Foot Oseteomyelitis: Invanz 1g PO Daily thru 10/10/20, Vancomycin 2g IV Q12hr thru 10/10/20. Please continue to monitor for resolution of infection, renal function, microbiology (as appropriate), and vancomycin trough. 3. Hypertension/ HLD/ Cardiac Prevention: Aspirin 81mg PO Daily, Lipitor 40mg PO Daily, Lisinopril 40mg PO Daily. Please continue to monitor for S/S bleeding/bruising, BP, electrolytes, renal function, and lipid panel annually or sooner if clinically indicated. 4. Diabetes II with Neuropathy: Humulin R U-500 120 units SC TIDCM, Gabapentin 600 PO TIDCM. Please continue to monitor BG, S/S hypoglycemia, A1C, renal function, improvement in neuropathy symptoms. 5. BPH: Flomax 0.4mg PO Daily. Please continue to monitor for S/S medication effectiveness, urinary retention/flow. 6. Tobacco Abuse: Nicotine Patch 21mg TD Daily. Please continue to encourage smoking cessation, medication effectiveness. 7. DVT Prophylaxis: Lovenox 40mg SC Daily. Please continue to monitor renal function, S/S bleeding/bruising. 8. General Wellness: MVI 1 tab PO Daily, Os-Ladarius 1 tab PO Daily. Please continue to monitor accordingly. Psychotropic Medications: *9. Depression: Wellbutrin SR 150mg PO BID. Please consider a GDR by 03/12 if clinically appropriate, thank you. Unnecessary Medications: None Bowel Regimen: Miralax 17g PO Daily, Senna/Docusate 1 tab PO BID, Dulcolax 10mg NM Daily PRN, MOM 30mL PO Daily PRN. Please continue to monitor for increased/decreased S/S constipation and/or diarrhea. Date of Note:: 09/04/20 - Provider Comments Provider responsibility: Provider responsible to enter orders to implement recommendations <Jaime Meyer Chi - Last Filed: 09/04/20 17:49> Progress Note - Pharmacy Subjective: [] Objective: Allergies Sulfa (Sulfonamide Antibiotics) Allergy (Verified 07/28/20 14:16) Rash Current Medications Generic Name Dose Route Start Last Admin Trade Name Freq PRN Reason Stop Dose Admin Acetaminophen 1,000 mg 09/01/20 21:42 09/03/20 08:31 Acetaminophen 500 Mg Tablet PO 1,000 mg Q6H PRN Administration Pain Score 1-10 Aspirin 81 mg 09/02/20 08:00 09/04/20 08:58 Aspirin E.C. 81 Mg Tablet PO 81 mg DAILY@0800 GT Administration Atorvastatin Calcium 40 mg 09/02/20 06:00 09/04/20 06:01 Atorvastatin Calcium 40 Mg Tablet PO 40 mg DAILY GT Administration Bisacodyl 10 mg 09/01/20 21:41 Bisacodyl 10 Mg Suppository RECTAL DAILY PRN Constipation Bupropion HCl 150 mg 09/02/20 06:00 09/04/20 17:36 Bupropion (Sr) 150 Mg Tablet.Sa PO 150 mg BID GT Administration Calcium Carbonate 500 mg 09/02/20 08:00 09/04/20 08:58 Calcium (Elemental) 500 Mg Tablet PO 500 mg DAILY@0800 GT Administration Enoxaparin Sodium 40 mg 09/02/20 06:00 09/04/20 06:01 Enoxaparin 40 Mg/0.4 Ml Syringe SC 40 mg DAILY GT Administration Gabapentin 600 mg 09/02/20 07:45 09/04/20 17:36 Gabapentin 600 Mg Tablet PO 600 mg TIDCM GT Administration Heparin Sodium (Beef Lung) 50 units 09/01/20 22:06 Heparin Pf Lock 10 Units/Ml 50 Units/5 Ml Syringe IV UD PRN PICC Line Heparin Flush Vancomycin HCl 2,000 mg/ 540 mls @ 250 mls/hr 09/01/20 23:00 09/04/20 15:27 Sodium Chloride IV 10/10/20 10:59 Infused Q12H GT Infusion Sodium Chloride 250 mls @ 15 mls/hr 09/01/20 22:06 09/04/20 13:17 IV 0 mls/hr .[id number] PRN Infusion Saline Flush Sodium Chloride 250 mls @ 15 mls/hr 09/01/20 22:06 IV .[id number] PRN Additional IVPB Infusion Ampicillin Sodium/Sulbactam 112 mls @ 150 mls/hr 09/04/20 22:00 Sodium 3 gm/ Sodium Chloride IV 10/10/20 12:00 Q8 GT Insulin Human Regular 120 units 09/05/20 08:00 Insulin U-500 Pen SC BREAKFAST GT Insulin Human Regular 120 units 09/04/20 17:00 09/04/20 17:33 Insulin U-500 Pen SC 120 units DINNER GT Administration Insulin Human Regular 120 units 09/05/20 12:00 Insulin U-500 Pen SC LUNCH GT L-Arginine/L-Glutamine/Calcium HMB 1 packet 09/02/20 08:00 09/04/20 17:32 Brett (Unflavored) Packet PO 1 packet BIDCM GT Administration Lisinopril 40 mg 09/02/20 06:00 09/04/20 06:01 Lisinopril 40 Mg Tablet PO 40 mg DAILY GT Administration Magnesium Hydroxide 30 ml 09/01/20 21:40 Magnesium Hydroxide 30 Ml Udc PO DAILY PRN Constipation Multivitamins 1 tablet 09/02/20 08:00 09/04/20 08:57 Multivitamins,Therapeutic Tablet PO 1 tablet DAILY@0800 GT Administration Nicotine 21 mg 09/02/20 06:00 09/04/20 06:01 Nicotine 21 Mg Patch TD 21 mg DAILY GT Administration Polyethylene Glycol 17 gm 09/02/20 06:00 09/04/20 06:04 Polyethylene Glycol 3350 17 Gm Packet PO Not Given DAILY GT Povidone Iodine 1 packet 09/02/20 10:00 09/03/20 11:18 Povidone-Iodine Swabstick TOPICAL 1 packet 1000 GT Administration Protocol Senna/Docusate Sodium 1 tablet 09/02/20 06:00 09/04/20 17:37 Senna/Docusate Sodium 1 Tablet PO 1 tablet BID GT Administration Sodium Chloride 10 - 40 ml 09/01/20 22:06 09/04/20 11:24 0.9% Saline Lock 10 Ml Syringe IV 40 ml UD PRN Administration Open End PICC Flush Sodium Chloride 10 - 40 ml 09/01/20 22:06 0.9 % Nacl (Sterile) Posiflush 10 Ml IV UD PRN Port access or dressing change Tamsulosin HCl 0.4 mg 09/02/20 17:30 09/04/20 17:36 Tamsulosin Hcl 0.4 Mg Capsule PO 0.4 mg DAILY@1730 GT Administration Tuberculin PPD 5 tu 09/09/20 10:00 Tuberculin,Purif.Prot.Deriv. 50 Tu/Ml Vial ID 09/09/20 10:01 X1 ONE Problem List (Last Updated 08/28/20 @ 17:[address] Irene Claudio, DP) Debility (Acute) Diabetes mellitus (Chronic) Diabetic polyneuropathy (Chronic) Hyperlipidemia (Chronic) BPH (benign prostatic hyperplasia) (Chronic) Peripheral vascular disease (Suspected) Chronic ulcer of right foot with fat layer exposed (Chronic) Tobacco abuse (Chronic) Osteomyelitis, unspecified (Chronic) Diabetic ulcer of left foot (Chronic) Difficulty in walking, not elsewhere classified (Chronic) MRSA (methicillin resistant staph aureus) culture positive (Chronic) History of transmetatarsal amputation of left foot (Chronic) Cellulitis of right lower limb (Acute) Osteomyelitis of right foot (Acute) Vital Signs Temp Pulse Resp BP Pulse Ox 97.0 F L 76 18 164/95 H 94 09/04/20 15:29 09/04/20 15:29 09/04/20 15:29 09/04/20 15:29 09/04/20 15:29 Oxygen Delivery Method Room Air Weight: 166.922 kg Body Mass Index (BMI) 47.2 Finger Stick Blood Glucose 137 Sodium 141 mmol/L (136-145) 09/02/20 07:34 Potassium 4.1 mmol/L (3.5-5.1) 09/02/20 07:34 Chloride 109 mmol/L (98-107) H 09/02/20 07:34 Carbon Dioxide 30.0 mmol/L (21.0-32.0) 09/02/20 07:34 Anion Gap 2 (5-15) L 09/02/20 07:34 BUN 12 mg/dL (7-18) 09/02/20 07:34 Creatinine 0.76 mg/dL (0.70-1.30) 09/02/20 07:34 Est GFR (MDRD) Af Amer 132 mL/min (>60) 09/02/20 07:34 Est GFR (MDRD) Non-Af 109 mL/min (>60) 09/02/20 07:34 BUN/Creatinine Ratio 15.7 RATIO (10-20) 09/02/20 07:34 Glucose 107 mg/dL (74-106) H 09/02/20 07:34 Vancomycin Trough 9.4 ug/mL (5.0-15.0) 09/03/20 10:30 Assessment/Plan: Psychotropic Medications: Unnecessary Medications: Bowel Regimen: - Provider Comments Provider responsibility: Provider responsible to enter orders to implement gibson mmendations Provider Comments to Recommendations by Pharmacy: Agree
--- NOTE | 2020-09-04 14:40 | NURSING ---
This nurse was in pts room checking IV tubing when pts bathroom call light started to ring, this nurse went into bathroom to answer light and pt started to scream at staff telling staff to leave room, pt non-compliant with transferring refusing to let staff assist. RN and therapy aware.
--- NOTE | 2020-09-04 14:44 | NURSING ---
This nurse spoke with Dr. Powell to clarify orders, pt is weight bearing as tolerated but would like pt to wear weight only to terry heels as much as possible, pt may shower as long as feet remain dry, and pt should have surgical shoes already as to follow previous recommendations for those, RN aware
[2020-09-04 15:29] VITALS: BP 164/95; PULSE 76; RESP 18; TEMP 36.1; O2SAT 94
--- NOTE | 2020-09-04 16:54 | CASEMGMT ---
Social Work Discussed code status with pt. Pt confirmed full code. MOLST form reviewed, communication to dr, and placed in chart. Martina Rothman, ADMISSIONS DEAN JOURNEYMAN MEAT CUTTER
--- NOTE | 2020-09-04 17:05 | PN.ID_ITS ---
Patient Problems: Active and Suspected Problems (Last Updated 08/28/20 @ 17:[address] Irene Claudio, [facility]) Debility (Acute) Peripheral vascular disease (Suspected) Cellulitis of right lower limb (Acute) Osteomyelitis of right foot (Acute) Subjective: Feeling well, no fever, no n/v/d - Physical Exam Vitals/I&O's: Vital Signs Temp Pulse Resp BP Pulse Ox 97.0 F L 76 18 164/95 H 94 09/04/20 15:29 09/04/20 15:29 09/04/20 15:29 09/04/20 15:29 09/04/20 15:29 Oxygen Delivery Method Room Air Weight: 166.922 kg Body Mass Index (BMI) 47.2 Finger Stick Blood Glucose 137 Intake and Output for Last 24 Hours 09/02/20 09/03/20 09/04/20 23:59 23:59 23:59 Intake Total 2601.25 / 2601.25 2770 / 2770 1995 Output Total 800 / 800 Balance 1801.25 / 1801.25 2770 / 2770 1995 General: Alert, Cooperative, No apparent distress Lungs: Clear to auscultation, Normal air movement Cardiovascular: Regular rate, Regular Rhythm Abdomen: Soft, Non Tender, Non-Distended Skin: Ulcer/ Wound - foot wrapped Laboratory Results 09/02/20 10:10: COVID-19 (NAI) Not Detected 09/03/20 16:50: POC Glucose 250 H 09/03/20 21:33: POC Glucose 266 H 09/04/20 06:09: POC Glucose 186 H 09/04/20 11:16: POC Glucose 281 H Current Medications Acetaminophen (Acetaminophen 500 Mg Tablet) 1,000 mg PO Q6H PRN PRN Reason: Pain Score 1-10 Last Admin: 09/03/20 08:31 Dose: 1,000 mg Documented by: Aspirin (Aspirin E.C. 81 Mg Tablet) 81 mg PO DAILY@0800 [facility] Last Admin: 09/04/20 08:58 Dose: 81 mg Documented by: Atorvastatin Calcium (Atorvastatin Calcium 40 Mg Tablet) 40 mg PO DAILY [facility] Last Admin: 09/04/20 06:01 Dose: 40 mg Documented by: Bisacodyl (Bisacodyl 10 Mg Suppository) 10 mg RECTAL DAILY PRN PRN Reason: Constipation Bupropion HCl (Bupropion (Sr) 150 Mg Tablet.Sa) 150 mg PO BID [facility] Last Admin: 09/04/20 06:01 Dose: 150 mg Documented by: Calcium Carbonate (Calcium (Elemental) 500 Mg Tablet) 500 mg PO DAILY@0800 [facility] Last Admin: 09/04/20 08:58 Dose: 500 mg Documented by: Enoxaparin Sodium (Enoxaparin 40 Mg/0.4 Ml Syringe) 40 mg SC DAILY [facility] Last Admin: 09/04/20 06:01 Dose: 40 mg Documented by: Gabapentin (Gabapentin 600 Mg Tablet) 600 mg PO TIDCM [facility] Last Admin: 09/04/20 12:16 Dose: 600 mg Documented by: Heparin Sodium (Beef Lung) (Heparin Pf Lock 10 Units/Ml 50 Units/5 Ml Syringe) 50 units IV UD PRN PRN Reason: PICC Line Heparin Flush Vancomycin HCl 2,000 mg/ (Sodium Chloride) 540 mls @ 250 mls/hr IV Q12H [facility] Stop: 10/10/20 10:59 Last Infusion: 09/04/20 15:27 Dose: Infused Documented by: Sodium Chloride () 250 mls @ 15 mls/hr IV .[id number] PRN PRN Reason: Saline Flush Last Infusion: 09/04/20 13:17 Dose: 0 mls/hr Documented by: Sodium Chloride () 250 mls @ 15 mls/hr IV .[id number] PRN PRN Reason: Additional IVPB Infusion Ertapenem 1 gm/ Sodium (Chloride) 50 mls @ 100 mls/hr IV DAILY@1000 [facility] Stop: 10/10/20 10:29 Last Infusion: 09/04/20 13:16 Dose: Infused Documented by: Insulin Human Regular (Insulin U-500 Pen) 120 units SC BREAKFAST [facility] Insulin Human Regular (Insulin U-500 Pen) 120 units SC DINNER [facility] Insulin Human Regular (Insulin U-500 Pen) 120 units SC LUNCH [facility] L-Arginine/L-Glutamine/Calcium HMB (Brett (Unflavored) Packet) 1 packet PO BIDCM [facility] Last Admin: 09/04/20 08:59 Dose: 1 packet Documented by: Lisinopril (Lisinopril 40 Mg Tablet) 40 mg PO DAILY [facility] Last Admin: 09/04/20 06:01 Dose: 40 mg Documented by: Magnesium Hydroxide (Magnesium Hydroxide 30 Ml Udc) 30 ml PO DAILY PRN PRN Reason: Constipation Multivitamins (Multivitamins,Therapeutic Tablet) 1 tablet PO DAILY@0800 [facility] Last Admin: 09/04/20 08:57 Dose: 1 tablet Documented by: Nicotine (Nicotine 21 Mg Patch) 21 mg TD DAILY [facility] Last Admin: 09/04/20 06:01 Dose: 21 mg Documented by: Polyethylene Glycol (Polyethylene Glycol 3350 17 Gm Packet) 17 gm PO DAILY [facility] Last Admin: 09/04/20 06:04 Dose: Not Given Documented by: Povidone Iodine (Povidone-Iodine Swabstick) 1 packet TOPICAL 1000 GT; Protocol Last Admin: 09/03/20 11:18 Dose: 1 packet Documented by: Senna/Docusate Sodium (Senna/Docusate Sodium 1 Tablet) 1 tablet PO BID [facility] Last Admin: 09/04/20 06:01 Dose: 1 tablet Documented by: Sodium Chloride (0.9% Saline Lock 10 Ml Syringe) 10 - 40 ml IV UD PRN PRN Reason: Open End PICC Flush Last Admin: 09/04/20 11:24 Dose: 40 ml Documented by: Sodium Chloride (0.9 % Nacl (Sterile) Posiflush 10 Ml) 10 - 40 ml IV UD PRN PRN Reason: Port access or dressing change Tamsulosin HCl (Tamsulosin Hcl 0.4 Mg Capsule) 0.4 mg PO DAILY@1730 [facility] Last Admin: 09/03/20 18:08 Dose: 0.4 mg Documented by: Tuberculin PPD (Tuberculin,Purif.Prot.Deriv. 50 Tu/Ml Vial) 5 tu ID X1 ONE Stop: 09/09/20 10:01 Medical Necessity - Tobacco Use Smoking Status: Heavy Smoker (>10/day) Tobacco Use: Cigarettes Route of nutrition/ use of supplements: [] Nutritional Intake: [] IV Site: [] Dyer Catheter: [] - Assessment/Plan Antibiotics: [] Assessment/Plan: [] Active and Suspected Problems (Last Updated 08/28/20 @ 17:[address] Irene Claudio, DPM) Debility (Acute) Peripheral vascular disease (Suspected) Cellulitis of right lower limb (Acute) Osteomyelitis of right foot (Acute) R foot osteo with uncontrolled DM - recent cxs with mrsa, enterococcus, klebs, strep mitis/oralis, and diphtheroids. OR 08/[address] Powell. Plan at this point will be 6 weeks iv vanc/unasyn, stop date 10/10/20, weekly bmp, cbc, esr, LFT, and vanc trough. Will follow
[2020-09-04 17:31] LABS: Bedside Glucose 214 mg/dL (70-110)
[2020-09-04] MEDS: Tamsulosin HCl 0.4 MG Capsule PO (17:36)
[2020-09-04] MEDS: Povidone-Iodine Swabstick 1 PACKET TOPICAL (21:10)
[2020-09-04 21:35] LABS: Bedside Glucose 230 mg/dL (70-110)
[2020-09-05 06:20] LABS: Bedside Glucose 233 mg/dL (70-110)
[2020-09-05] MEDS: Atorvastatin Calcium 40 MG Tablet PO (06:36)
[2020-09-05] MEDS: Lisinopril 40 MG Tablet PO (06:36)
[2020-09-05] MEDS: buPROPion (SR) 150 MG Tablet.SA PO ×2 (06:36→18:13)
[2020-09-05] MEDS: Enoxaparin 40 MG/0.4 ML Syringe SC (06:37)
[2020-09-05 06:45] VITALS: BP 139/53; PULSE 72; RESP 18; TEMP 36.8; O2SAT 92
[2020-09-05] MEDS: 0.9% Saline Lock 10 ML Syringe IV ×5 (08:02→21:29)
[2020-09-05] MEDS: Aspirin E.C. 81 MG Tablet PO (08:06)
[2020-09-05] MEDS: Juven (unflavored) Packet 1 PACKET PO ×2 (08:06→18:11)
[2020-09-05] MEDS: Calcium (Elemental) 500 MG Tablet PO (08:06)
[2020-09-05] MEDS: Gabapentin 600 MG Tablet PO ×3 (08:06→18:13)
[2020-09-05] MEDS: Multivitamins,Therapeutic Tablet 1 TABLET PO (08:06)
--- NOTE | 2020-09-05 08:14 | NURSING ---
NICOTINE PATCH VERIFIED TO RIGHT POST SHOULDER.
--- NOTE | 2020-09-05 09:45 | NURSING ---
therapy getting Surgical shoes for pt.
[2020-09-05 11:01] LABS: Bedside Glucose 271 mg/dL (70-110)
[2020-09-05 11:16] LABS: Vancomycin, Trough Level 10.7 ug/mL (5.0-15.0)
--- NOTE | 2020-09-05 13:49 | NURSING ---
This nurse offered to call Pt's family with Pt update. Pt states his care plan is tomorrow and that his son will be on the call. Pt denies need for this nurse to call family at this time.
[2020-09-05 14:22] VITALS: BP 162/90; PULSE 72; RESP 18; TEMP 36.7; O2SAT 92
--- NOTE | 2020-09-05 14:40 | PCM.RX.CS ---
Consult Pharmacy has been consulted to manage selected antiobiotic: Vancomycin Type of Consult: Follow-up Suspected Infection: Osteomyelitis Labs: Sodium 141 mmol/L (136-145) 09/02/20 07:34 Potassium 4.1 mmol/L (3.5-5.1) 09/02/20 07:34 Chloride 109 mmol/L (98-107) H 09/02/20 07:34 Carbon Dioxide 30.0 mmol/L (21.0-32.0) 09/02/20 07:34 Anion Gap 2 (5-15) L 09/02/20 07:34 BUN 12 mg/dL (7-18) 09/02/20 07:34 Creatinine 0.76 mg/dL (0.70-1.30) 09/02/20 07:34 Est GFR (MDRD) Af Amer 132 mL/min (>60) 09/02/20 07:34 Est GFR (MDRD) Non-Af 109 mL/min (>60) 09/02/20 07:34 BUN/Creatinine Ratio 15.7 RATIO (10-20) 09/02/20 07:34 Glucose 107 mg/dL (74-106) H 09/02/20 07:34 Vancomycin Trough 10.7 ug/mL (5.0-15.0) 09/05/20 10:32 Goal Trough: 15-20 mcg/mL Pharmacy Plan for Drug Dosing: VANCOMYCIN LEVEL RECEIVED Current Vancomycin Dose: 2000mg IV Q12hr Number of Doses Received: several Vancomycin Level: 10.7 Hours Since Last Dose:12.25hrs Renal Function: 0.76 Renal Function Trend: stable Lab/Micro: no new (+) MRSA in cultures Vancomycin Plan/Comments: Patient had trough drawn which resulted in a value of 10.7 (goal 15-20). Due to body habitus and older age, would hesitate to place patient on Q8hr dosing due to accumulation concerns. Patient was previously on Q8hr dosing while on MS3, and after only 3 doses of Q8hr dosing, trough jumped from 8 --> 14. Called and spoke with Dr. Pathak to discuss patient's case. Per discussion, pt has had amputation of infected site, has clean margins, and is doing well. Will plan on continuing current dose despite trough not being at goal, due to improvement in patient's condition and risk of increasing to Q8hr dosing. If patient's trough has dropped after next trough draw, can consider increasing to Q8hr interval at that time per discussion with ID service. Pending Level:09/07/20 @1030 Pharmacy Service will continue to monitor and adjust dosing as required.
[2020-09-05] MEDS: Povidone-Iodine Swabstick 1 PACKET TOPICAL (15:39)
--- NOTE | 2020-09-05 15:46 | CHAPLAIN ---
Type of Pastoral Visit _x__ Initial Visit ___ Follow-up Visit ___ On-call Visit ___ General Patient Visit ___ Spiritual Assessment ___ Family Conference ___ Bereavement ___ Rapid Response ___ Code Blue ___ Other (describe below) Pastoral Care Referral From _x__ Patient ___ Family ___ Nurse ___ Physician ___ Mule Spinner ___ Veterinary Assistant ___ Other (describe below) Sacrament/Intervention _x__ Active listening ___ Anointing ___ Confucianist ___ Bereavement ___ Communion ___ Makeda exploration ___ _x__ Life review _x__ Prayer ___ Reconciliation ___ Sacrament of Sick _x__ Supportive presence ___ Wedding ___ Other (describe below) Pastoral Comments patient invites this pulverizer tender for future visits
[2020-09-05 16:10] VITALS: PULSE 64; RESP 18; O2SAT 95
[2020-09-05 17:20] LABS: Bedside Glucose 158 mg/dL (70-110)
[2020-09-05] MEDS: Tamsulosin HCl 0.4 MG Capsule PO (18:12)
[2020-09-05 21:26] LABS: Bedside Glucose 221 mg/dL (70-110)
[2020-09-06 05:00] VITALS: BP 143/81; PULSE 75; RESP 18; TEMP 36.8; O2SAT 94
[2020-09-06] MEDS: 0.9% Saline Lock 10 ML Syringe IV ×7 (06:02→23:43)
[2020-09-06] MEDS: buPROPion (SR) 150 MG Tablet.SA PO ×2 (06:08→18:07)
[2020-09-06] MEDS: Lisinopril 40 MG Tablet PO (06:08)
[2020-09-06] MEDS: Enoxaparin 40 MG/0.4 ML Syringe SC (06:08)
[2020-09-06] MEDS: Atorvastatin Calcium 40 MG Tablet PO (06:08)
[2020-09-06 06:21] LABS: Bedside Glucose 105 mg/dL (70-110)
--- NOTE | 2020-09-06 06:53 | NURSING ---
Red lumen unable to flush. Heparin given per order. Flushed with 10cc NS and blood return noted. RN aware.
[2020-09-06] MEDS: Gabapentin 600 MG Tablet PO ×3 (08:31→18:06)
[2020-09-06] MEDS: Aspirin E.C. 81 MG Tablet PO (08:31)
[2020-09-06] MEDS: Multivitamins,Therapeutic Tablet 1 TABLET PO (08:32)
[2020-09-06] MEDS: Juven (unflavored) Packet 1 PACKET PO ×2 (08:32→18:05)
[2020-09-06] MEDS: Calcium (Elemental) 500 MG Tablet PO (08:32)
[2020-09-06 10:51] LABS: Bedside Glucose 217 mg/dL (70-110)
[2020-09-06 12:48] VITALS: PULSE 84; RESP 18; O2SAT 94
[2020-09-06] MEDS: Povidone-Iodine Swabstick 1 PACKET TOPICAL (13:31)
--- NOTE | 2020-09-06 13:59 | NURSING ---
POC DONE TODAY FOR UPDATES.
--- NOTE | 2020-09-06 14:29 | CASEMGMT ---
Social Work IDT met with patient and son via conference call for care plan meeting. Discussed patient's progress in therapy. Pt is Erin for tx, ambulating 40ft with FWW, requested to be adlib in room. Educated to heel WBS and risks - pt expressed understanding. Pt declined OT ADLS states he doesn't need any help. Supervised for all ADLs. Pt wears right surgical shoes. Pt agreed for OT to DC 09/09. Pt is on a cardiac, consistent card diet, receiving Brett. Intake is good. Pt is on IV ATB until 10/10, wounds to both feet, and is out of room isolation 09/16. Pt reiterated if there was a way for him to get the care he needs to get his IVs at home, he would be home, but there isn't, and he has accepted he needs to be in TCU for that duration. Explained [facility] insurance with [employer] 09/07 and continued stay is not guaranteed. Pt has 3 steps to enter. Provided grab bar and ramp resources to pt. Will continue to follow. Martina Rothman, ACCESS DATABASE DEVELOPER DUPLICATING 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
[2020-09-06 14:41] VITALS: BP 154/56; PULSE 75; RESP 18; TEMP 36.5; O2SAT 91
[2020-09-06 17:00] LABS: Bedside Glucose 209 mg/dL (70-110)
[2020-09-06] MEDS: Tamsulosin HCl 0.4 MG Capsule PO (18:06)
[2020-09-06 22:01] LABS: Bedside Glucose 112 mg/dL (70-110)
[2020-09-07 05:00] VITALS: BP 154/76; PULSE 78; RESP 18; TEMP 36.6; O2SAT 93
[2020-09-07] MEDS: 0.9% Saline Lock 10 ML Syringe IV ×4 (05:50→21:52)
[2020-09-07] MEDS: buPROPion (SR) 150 MG Tablet.SA PO ×2 (05:51→17:12)
[2020-09-07] MEDS: Atorvastatin Calcium 40 MG Tablet PO (05:51)
[2020-09-07] MEDS: Enoxaparin 40 MG/0.4 ML Syringe SC (05:52)
[2020-09-07 06:26] LABS: Bedside Glucose 72 mg/dL (70-110)
[2020-09-07] MEDS: Lisinopril 40 MG Tablet PO (06:56)
[2020-09-07] MEDS: Calcium (Elemental) 500 MG Tablet PO (09:19)
[2020-09-07] MEDS: Gabapentin 600 MG Tablet PO ×3 (09:19→17:12)
[2020-09-07] MEDS: Aspirin E.C. 81 MG Tablet PO (09:19)
[2020-09-07] MEDS: Multivitamins,Therapeutic Tablet 1 TABLET PO (09:19)
[2020-09-07] MEDS: Acetaminophen 500 MG Tablet 1000 MG PO ×2 (09:24→21:52)
[2020-09-07 09:26] LABS: Bedside Glucose 206 mg/dL (70-110)
--- NOTE | 2020-09-07 10:30 | NURSING ---
Dressing changes completed per order.
[2020-09-07 11:11] LABS: Bedside Glucose 192 mg/dL (70-110)
[2020-09-07 11:22] LABS: Vancomycin, Trough Level 12.5 ug/mL (5.0-15.0)
[2020-09-07] MEDS: Povidone-Iodine Swabstick 1 PACKET TOPICAL (12:08)
[2020-09-07 14:21] VITALS: BP 156/75; PULSE 69; RESP 18; TEMP 36.7; O2SAT 92
--- NOTE | 2020-09-07 16:23 | CHAPLAIN ---
Type of Pastoral Visit ___ Initial Visit _x__ Follow-up Visit ___ On-call Visit ___ General Patient Visit ___ Spiritual Assessment ___ Family Conference ___ Bereavement ___ Rapid Response ___ Code Blue ___ Other (describe below) Pastoral Care Referral From _x__ Patient ___ Family ___ Nurse ___ Physician ___ Diabetes Manager ___ Supervisor Functional Testing ___ Other (describe below) Sacrament/Intervention _x__ Active listening ___ Anointing ___ Orthodoxy ___ Bereavement ___ Communion ___ [place] exploration ___ _x__ Life review _x__ Prayer ___ Reconciliation ___ Sacrament of Sick _x__ Supportive presence ___ Wedding ___ Other (describe below) Pastoral Comments
[2020-09-07 17:01] LABS: Bedside Glucose 137 mg/dL (70-110)
[2020-09-07] MEDS: Juven (unflavored) Packet 1 PACKET PO (17:12)
[2020-09-07] MEDS: Tamsulosin HCl 0.4 MG Capsule PO (17:12)
[2020-09-07 22:06] LABS: Bedside Glucose 148 mg/dL (70-110)
[2020-09-08 02:49] VITALS: BP 142/53; PULSE 72; RESP 18; TEMP 36.4; O2SAT 95
[2020-09-08 06:26] LABS: Bedside Glucose 102 mg/dL (70-110)
[2020-09-08] MEDS: buPROPion (SR) 150 MG Tablet.SA PO ×2 (06:33→18:02)
[2020-09-08] MEDS: Enoxaparin 40 MG/0.4 ML Syringe SC (06:33)
[2020-09-08] MEDS: Lisinopril 40 MG Tablet PO (06:33)
[2020-09-08] MEDS: Atorvastatin Calcium 40 MG Tablet PO (06:33)
[2020-09-08] MEDS: 0.9% Saline Lock 10 ML Syringe IV ×2 (06:35→21:23)
[2020-09-08] MEDS: Multivitamins,Therapeutic Tablet 1 TABLET PO (08:57)
[2020-09-08] MEDS: Juven (unflavored) Packet 1 PACKET PO (08:57)
[2020-09-08] MEDS: Aspirin E.C. 81 MG Tablet PO (08:57)
[2020-09-08] MEDS: Gabapentin 600 MG Tablet PO ×3 (08:57→18:01)
[2020-09-08] MEDS: Calcium (Elemental) 500 MG Tablet PO (08:57)
--- NOTE | 2020-09-08 09:38 | PCM.RX.CS ---
Consult Pharmacy has been consulted to manage selected antiobiotic: Vancomycin Type of Consult: Follow-up Labs: Sodium 141 mmol/L (136-145) 09/02/20 07:34 Potassium 4.1 mmol/L (3.5-5.1) 09/02/20 07:34 Chloride 109 mmol/L (98-107) H 09/02/20 07:34 Carbon Dioxide 30.0 mmol/L (21.0-32.0) 09/02/20 07:34 Anion Gap 2 (5-15) L 09/02/20 07:34 BUN 12 mg/dL (7-18) 09/02/20 07:34 Creatinine 0.76 mg/dL (0.70-1.30) 09/02/20 07:34 Est GFR (MDRD) Af Amer 132 mL/min (>60) 09/02/20 07:34 Est GFR (MDRD) Non-Af 109 mL/min (>60) 09/02/20 07:34 BUN/Creatinine Ratio 15.7 RATIO (10-20) 09/02/20 07:34 Glucose 107 mg/dL (74-106) H 09/02/20 07:34 Vancomycin Trough 12.5 ug/mL (5.0-15.0) 09/07/20 10:30 Goal Trough: 15-20 mcg/mL Pharmacy Plan for Drug Dosing: VANCOMYCIN LEVEL RECEIVED Current Vancomycin Dose: 2000mg IV Q12hr Number of Doses Received: several Vancomycin Level: 12.5 Hours Since Last Dose: 11 Renal Function: 0.76 Renal Function Trend: stable Vancomycin Plan/Comments: Patient had a trough drawn which resulted in a value of 12.7 (goal 15-20). Discussed case with ID service. Pt continues to improve despite low trough (see previous note). Will continue current dose (2000mg IV Q12hr) and check a trough in a few days. Will likely go up again, given pt's body habitus. At this time, would hesitate to increase to every 8 hours due to pt age as well. Will continue to follow closely. Pending Level: 09/11/20 @1030 Pharmacy Service will continue to monitor and adjust dosing as required.
[2020-09-08 11:46] LABS: Bedside Glucose 174 mg/dL (70-110)
[2020-09-08] MEDS: Povidone-Iodine Swabstick 1 PACKET TOPICAL (12:03)
--- NOTE | 2020-09-08 12:33 | NURSING ---
Pt refused to allow me to administer insulin and vanc stating just let me eat in peace. I already had the foot doctor interrupt me and now you want to interrupt me. Will try to administer after he is finished eating
--- NOTE | 2020-09-08 14:18 | PN_ITS ---
Patient Problems: Active and Suspected Problems (Last Updated 08/28/20 @ 17:[address] Irene Claudio, [facility]) Debility (Acute) Peripheral vascular disease (Suspected) Cellulitis of right lower limb (Acute) Osteomyelitis of right foot (Acute) Subjective: Patient was seen today for follow up on bilateral feet. He is resting in chair, no complaints. No complaints of fever, chills, nausea or vomiting. - Physical Exam Vitals/I&O's: Vital Signs Temp Pulse Resp BP Pulse Ox 97.6 F L 72 18 142/53 H 95 09/08/20 02:49 09/08/20 02:49 09/08/20 02:49 09/08/20 02:49 09/08/20 02:49 Oxygen Delivery Method Room Air Weight: 167.999 kg Body Mass Index (BMI) 47.2 Finger Stick Blood Glucose 137 Intake and Output for Last 24 Hours 09/06/20 09/07/20 09/08/20 23:59 23:59 23:59 Intake Total 2624 / 2624 3152.5 / 3152.5 940 / 940 Output Total 1550 / 1550 500 / 500 Balance 2624 / 2624 1602.5 / 1602.5 440 / 440 General: Alert, Oriented x3, Cooperative, No apparent distress Extremities: Capillary Refill Less than 3 Seconds, No Calf Tenderness, - - TMA left foot with plantar ulcer sub residual 1st met: measures 1.4cm x 1.3cm and 0.2cm in depth down to subcutaneous tissue layer, no evidence of infection, there is some nonviable tissue to base and margins, no maloder. Skin: - - s/p right foot partial 5th ray amp - site healing well, there is residual ulcer centrally down to subcutaneous tissue, sutures otherwise intact and periphery is healed. There is no probe to bone, no streaking, no cellulitis, no visible abscess, no crepitus, no fluctuance bilateral foot or ankle. Musculoskeletal: No Tenderness to Palpation of Joints or Extremities - to the foot or ankle bilateral. TMA left foot. Psych/Mental Status: Appropriate, Alert and oriented to time, place, person, mood and affect Laboratory Results 09/07/20 16:57: POC Glucose 137 H 09/07/20 21:07: POC Glucose 148 H 09/08/20 06:20: POC Glucose 102 09/08/20 11:35: POC Glucose 174 H Current Medications Acetaminophen (Acetaminophen 500 Mg Tablet) 1,000 mg PO Q6H PRN PRN Reason: Pain Score 1-10 Last Admin: 09/07/20 21:52 Dose: 1,000 mg Documented by: Aspirin (Aspirin E.C. 81 Mg Tablet) 81 mg PO DAILY@0800 [facility] Last Admin: 09/08/20 08:57 Dose: 81 mg Documented by: Atorvastatin Calcium (Atorvastatin Calcium 40 Mg Tablet) 40 mg PO DAILY [facility] Last Admin: 09/08/20 06:33 Dose: 40 mg Documented by: Bisacodyl (Bisacodyl 10 Mg Suppository) 10 mg RECTAL DAILY PRN PRN Reason: Constipation Bupropion HCl (Bupropion (Sr) 150 Mg Tablet.Sa) 150 mg PO BID [facility] Last Admin: 09/08/20 06:33 Dose: 150 mg Documented by: Calcium Carbonate (Calcium (Elemental) 500 Mg Tablet) 500 mg PO DAILY@0800 [facility] Last Admin: 09/08/20 08:57 Dose: 500 mg Documented by: Enoxaparin Sodium (Enoxaparin 40 Mg/0.4 Ml Syringe) 40 mg SC DAILY [facility] Last Admin: 09/08/20 06:33 Dose: 40 mg Documented by: Gabapentin (Gabapentin 600 Mg Tablet) 600 mg PO TIDCM [facility] Last Admin: 09/08/20 13:31 Dose: 600 mg Documented by: Heparin Sodium (Beef Lung) (Heparin Pf Lock 10 Units/Ml 50 Units/5 Ml Syringe) 50 units IV UD PRN PRN Reason: PICC Line Heparin Flush Last Admin: 09/06/20 06:46 Dose: 50 units Documented by: Vancomycin HCl 2,000 mg/ (Sodium Chloride) 540 mls @ 250 mls/hr IV Q12H [facility] Stop: 10/10/20 10:59 Last Admin: 09/08/20 13:22 Dose: 250 mls/hr Documented by: Sodium Chloride () 250 mls @ 15 mls/hr IV .[id number] PRN PRN Reason: Saline Flush Last Infusion: 09/07/20 14:36 Dose: 0 mls/hr Documented by: Sodium Chloride () 250 mls @ 15 mls/hr IV .[id number] PRN PRN Reason: Additional IVPB Infusion Ampicillin Sodium/Sulbactam (Sodium 3 gm/ Sodium Chloride) 112 mls @ 150 mls/hr IV Q8 [facility] Stop: 10/10/20 12:00 Last Admin: 09/08/20 06:34 Dose: 150 mls/hr Documented by: Insulin Human Regular (Insulin U-500 Pen) 120 units SC BREAKFAST [facility] Last Admin: 09/08/20 08:58 Dose: 120 u Documented by: Insulin Human Regular (Insulin U-500 Pen) 120 units SC DINNER [facility] Last Admin: 09/07/20 17:11 Dose: 120 u Documented by: Insulin Human Regular (Insulin U-500 Pen) 120 units SC LUNCH [facility] Last Admin: 09/08/20 13:29 Dose: 120 u Documented by: L-Arginine/L-Glutamine/Calcium HMB (Brett (Unflavored) Packet) 1 packet PO BIDCM [facility] Last Admin: 09/08/20 08:57 Dose: 1 packet Documented by: Lisinopril (Lisinopril 40 Mg Tablet) 40 mg PO DAILY [facility] Last Admin: 09/08/20 06:33 Dose: 40 mg Documented by: Magnesium Hydroxide (Magnesium Hydroxide 30 Ml Udc) 30 ml PO DAILY PRN PRN Reason: Constipation Multivitamins (Multivitamins,Therapeutic Tablet) 1 tablet PO DAILY@0800 [facility] Last Admin: 09/08/20 08:57 Dose: 1 tablet Documented by: Nicotine (Nicotine 21 Mg Patch) 21 mg TD DAILY [facility] Last Admin: 09/08/20 06:33 Dose: 21 mg Documented by: Polyethylene Glycol (Polyethylene Glycol 3350 17 Gm Packet) 17 gm PO DAILY [facility] Last Admin: 09/08/20 06:30 Dose: Not Given Documented by: Povidone Iodine (Povidone-Iodine Swabstick) 1 packet TOPICAL 1000 [facility]; Protocol Last Admin: 09/08/20 12:03 Dose: 1 packet Documented by: Senna/Docusate Sodium (Senna/Docusate Sodium 1 Tablet) 1 tablet PO BID [facility] Last Admin: 09/08/20 06:30 Dose: Not Given Documented by: Sodium Chloride (0.9% Saline Lock 10 Ml Syringe) 10 - 40 ml IV UD PRN PRN Reason: Open End PICC Flush Last Admin: 09/08/20 06:35 Dose: 30 ml Documented by: Sodium Chloride (0.9 % Nacl (Sterile) Posiflush 10 Ml) 10 - 40 ml IV UD PRN PRN Reason: Port access or dressing change Tamsulosin HCl (Tamsulosin Hcl 0.4 Mg Capsule) 0.4 mg PO DAILY@1730 [facility] Last Admin: 09/07/20 17:12 Dose: 0.4 mg Documented by: Tuberculin PPD (Tuberculin,Purif.Prot.Deriv. 50 Tu/Ml Vial) 5 tu ID [id number] Stop: 09/09/20 10:01 Medical Necessity - Tobacco Use Smoking Status: Heavy Smoker (>10/day) Tobacco Use: Cigarettes Assessment/Plan All Active Problems (Last Updated 08/28/20 @ 17:[address] Irene Claudio, DPM) Debility (Acute) Cellulitis of right lower limb (Acute) Osteomyelitis of right foot (Acute) Osteomyelitis right 5th metatarsal s/p 5th ray resection right foot 08/29/[address] Powell with healing ulcer Left foot ulcer down to subcutaneous tissue TMA left foot Uncontrolled diabetes with neuropathy Other comorbidities include tobacco abuse, obesity, sleep apnea, hyperlipidemia, hypertension, prior stage II kidney disease, BPH Patient seen and examined. Removed sutures right foot, nonviable callus removed from around site using a 15 blade, cleansed with normal saline soln, applied betadine soln and gauze, kerlix and guerrero dressing - change daily using Aquacel Ag, gauze, kerlix and guerrero. Left foot ulcer: Ulceration was debrided down to subcutaneous tissue layer in sharp excisional fashion using a 15 blade, post debridement it measured 1.5cm x 1.4cm and 0.3cm in depth. Cleansed with normal saline soln. Applied Aquacel Ag, gauze, kerlix and guerrero dressing - change daily. No anesthesia was needed due to patient's neuropathy. Hemostasis achieved with gauze and pressure. Continue with antibiotic therapy per ID service. PVRs from April 2020 were reviewed showing an KANDI of 0.94 which should show adequate blood flow for healing after surgery. No weightbearing to ulcer sites. Patient is to limit weightbearing as much as possible, but if have to focus on heel weightbearing in Surgical shoes with ulcers offloaded. Keep offloaded at all times. Discussed with patient Podiatry will continue to follow weekly, call sooner if needed.
--- NOTE | 2020-09-08 16:00 | NURSING ---
Resident and son, Matthew, notified of staff member testing positive for COVID.
[2020-09-08] MEDS: Acetaminophen 500 MG Tablet 1000 MG PO (16:32)
[2020-09-08 17:56] LABS: Bedside Glucose 127 mg/dL (70-110)
[2020-09-08] MEDS: Tamsulosin HCl 0.4 MG Capsule PO (18:01)
[2020-09-08 21:40] LABS: Bedside Glucose 103 mg/dL (70-110)
[2020-09-09 06:26] LABS: Bedside Glucose 51 mg/dL (70-110)
[2020-09-09 06:45] LABS: Bedside Glucose 57 mg/dL (70-110)
[2020-09-09] MEDS: Enoxaparin 40 MG/0.4 ML Syringe SC (06:47)
[2020-09-09] MEDS: Lisinopril 40 MG Tablet PO (06:48)
[2020-09-09] MEDS: Atorvastatin Calcium 40 MG Tablet PO (06:48)
[2020-09-09] MEDS: buPROPion (SR) 150 MG Tablet.SA PO ×2 (06:48→17:25)
[2020-09-09] MEDS: Gabapentin 600 MG Tablet PO ×3 (06:48→17:25)
[2020-09-09] MEDS: 0.9% Saline Lock 10 ML Syringe IV ×5 (06:50→22:15)
[2020-09-09 06:51] VITALS: BP 143/70; PULSE 80; RESP 18; TEMP 35.9; O2SAT 94
[2020-09-09 06:58] LABS: Absolute Lymphocyte Count 1.65 X10^3/uL (0.83-4.51); Absolute Neutrophil Count 7.5 X10^3/uL (2.0-7.7); Basophil# 0.07 X10^3/uL; Basophil% 0.7 % (0-1); Eosinophil# 0.12 X10^3/uL; Eosinophils% 1.2 % (0-5); Hematocrit 44.5 % (40-54); Hemoglobin 13.7 g/dL (13.0-16.5); Lymphocyte # 1.65 X10^3/ul (4.0); Lymphocyte % 16.4 % (19-41); Mean Corp Hgb Conc 30.8 g/dL (32-36); Mean Corpuscular Hgb 27.8 pg (27.0-32.0); Mean Corpuscular Volume 90.4 fL (80-94); Mean Platelet Vol. 10.3 fl (6.2-12.0); Monocyte# 0.64 X10^3/uL; Monocyte% 6.4 % (0-10); NRBC Flagged by Analyzer 0 % (0-5); Neutrophil # 7.48 X10^3/uL (2.7-7.7); Neutrophil % 74.4 % (47-70); Platelet Count 257 K/mm3 (150-450); RBC Distribution Width CV 14.4 % (11.6-14.6); RBC Distribution Width SD 48.5 fl (35.1-43.9); Red Blood Count 4.92 M/mm3 (4.6-6.2); White Blood Count 10.1 K/mm3 (4.4-11.0)
[2020-09-09 07:00] LABS: Bedside Glucose 67 mg/dL (70-110)
--- NOTE | 2020-09-09 07:00 | NURSING ---
Pt blood sugar at 0615 was 51, pt states he feels tired and dizzy, orange juice w/sugar given, recheck in 15 minutes was 57, given cedrick doones, apple juice w/sugar, recheck was 67, pt given butterscotch candy. Will continue to monitor, reported to dayshift nurses.
[2020-09-09 07:19] LABS: Erythrocyte Sedimentation Rate 100 mm/hr (0-20)
[2020-09-09 07:32] LABS: AST(SGOT) 18 U/L (15-37); Alanine Aminotransfer ALT/SGPT 34 U/L (16-61); Albumin, Serum 2.9 g/dL (3.2-5.0); Alkaline Phosphatase 70 U/L (45-117); Anion Gap 3 (5-15); BUN 13 mg/dL (7-18); BUN/Creat Ratio 20.1 RATIO (10-20); Bilirubin, Direct 0.13 mg/dL (0.00-0.30); Calcium,Total 8.8 mg/dL (8.5-10.1); Chloride 111 mmol/L (98-107); Creatinine, Serum 0.65 mg/dL (0.70-1.30); EST Glomerular Filtration Rate 132 mL/min (>60); Est Glom Filt Rate - Afr Amer 160 mL/min (>60); Estimated Creatinine Clearance 133.49 ml/min; Globulin 5.1 g/dL (2.2-4.2); Glucose 43 mg/dL (74-106); Potassium 3.9 mmol/L (3.5-5.1); Sodium Level 140 mmol/L (136-145)
[2020-09-09] MEDS: Aspirin E.C. 81 MG Tablet PO (08:23)
[2020-09-09] MEDS: Multivitamins,Therapeutic Tablet 1 TABLET PO (08:24)
[2020-09-09] MEDS: Calcium (Elemental) 500 MG Tablet PO (08:25)
[2020-09-09 08:31] LABS: Bedside Glucose 155 mg/dL (70-110)
[2020-09-09 10:00] VITALS: PULSE 79; RESP 18; O2SAT 92
[2020-09-09 11:20] LABS: Bedside Glucose 203 mg/dL (70-110)
[2020-09-09] MEDS: Tuberculin,Purif.prot.deriv. 50 TU/ML Vial 5 ML ID (12:12)
[2020-09-09 13:58] VITALS: BP 155/75; PULSE 79; RESP 17; TEMP 36.8; O2SAT 92
[2020-09-09] MEDS: Povidone-Iodine Swabstick 1 PACKET TOPICAL (14:10)
[2020-09-09 16:55] LABS: Bedside Glucose 179 mg/dL (70-110)
[2020-09-09] MEDS: Alteplase 2 MG/2 ML Vial IV ×2 (17:09→17:19)
[2020-09-09] MEDS: Tamsulosin HCl 0.4 MG Capsule PO (17:25)
--- NOTE | 2020-09-09 18:44 | NURSING ---
Cathflo 2mg administered to bilateral lumens via stopcock method. Blood return noted. 4ml blood return removed from bilateral lumens prior to stopcock disconnection. [place] connectors changed and bilateral lumens flushed with 20ml of NS pulsated. Patient tolerated well. Sonam SULLIVAN to assist.
[2020-09-09 21:50] LABS: Bedside Glucose 191 mg/dL (70-110)
[2020-09-10 06:14] VITALS: BP 144/78; PULSE 77; RESP 18; TEMP 36.6; O2SAT 96
[2020-09-10] MEDS: Enoxaparin 40 MG/0.4 ML Syringe SC (06:24)
[2020-09-10] MEDS: Atorvastatin Calcium 40 MG Tablet PO (06:25)
[2020-09-10] MEDS: buPROPion (SR) 150 MG Tablet.SA PO ×2 (06:25→17:51)
[2020-09-10] MEDS: Lisinopril 40 MG Tablet PO (06:25)
[2020-09-10] MEDS: Gabapentin 600 MG Tablet PO ×3 (06:25→17:51)
[2020-09-10 06:30] LABS: Bedside Glucose 113 mg/dL (70-110)
[2020-09-10] MEDS: Aspirin E.C. 81 MG Tablet PO (08:43)
[2020-09-10] MEDS: Calcium (Elemental) 500 MG Tablet PO (08:44)
[2020-09-10] MEDS: Multivitamins,Therapeutic Tablet 1 TABLET PO (08:44)
[2020-09-10 10:56] LABS: Bedside Glucose 191 mg/dL (70-110)
[2020-09-10] MEDS: 0.9% Saline Lock 10 ML Syringe IV ×2 (11:21→21:57)
[2020-09-10 13:46] VITALS: BP 155/73; PULSE 74; RESP 20; TEMP 36.7; O2SAT 95
[2020-09-10 17:45] LABS: Bedside Glucose 132 mg/dL (70-110)
[2020-09-10] MEDS: Tamsulosin HCl 0.4 MG Capsule PO (17:50)
[2020-09-10 21:51] LABS: Bedside Glucose 146 mg/dL (70-110)
[2020-09-10] MEDS: Acetaminophen 500 MG Tablet 1000 MG PO (21:53)
[2020-09-10] MEDS: Povidone-Iodine Swabstick 1 PACKET TOPICAL (22:11)
[2020-09-11] MEDS: 0.9% Saline Lock 10 ML Syringe IV ×5 (05:59→15:35)
[2020-09-11] MEDS: buPROPion (SR) 150 MG Tablet.SA PO ×2 (06:09→17:55)
[2020-09-11] MEDS: Enoxaparin 40 MG/0.4 ML Syringe SC (06:09)
[2020-09-11] MEDS: Gabapentin 600 MG Tablet PO ×3 (06:09→17:54)
[2020-09-11] MEDS: Lisinopril 40 MG Tablet PO (06:09)
[2020-09-11] MEDS: Atorvastatin Calcium 40 MG Tablet PO (06:10)
[2020-09-11 06:12] VITALS: BP 149/61; PULSE 78; RESP 18; TEMP 36.4; O2SAT 94
[2020-09-11 06:21] LABS: Bedside Glucose 86 mg/dL (70-110)
[2020-09-11] MEDS: Calcium (Elemental) 500 MG Tablet PO (08:32)
[2020-09-11] MEDS: Aspirin E.C. 81 MG Tablet PO (08:33)
[2020-09-11] MEDS: Multivitamins,Therapeutic Tablet 1 TABLET PO (08:33)
[2020-09-11 08:45] LABS: Bedside Glucose 157 mg/dL (70-110)
[2020-09-11 11:05] LABS: Bedside Glucose 158 mg/dL (70-110)
[2020-09-11 11:10] LABS: Vancomycin, Trough Level 12.1 ug/mL (5.0-15.0)
--- NOTE | 2020-09-11 12:42 | NURSING ---
pt positive TB skin test to LT arm, dr avendaño notified, new order chest xray, TB quant and consult Dr Pathak.
--- NOTE | 2020-09-11 14:20 | RAD_ITS ---
STUDY: X-RAY CHEST REASON FOR EXAM: Male, 65 years old. Positive TB skin test , diabetic TECHNIQUE: PA and lateral views of the chest. COMPARISON: Comparison is made with prior study dated 08/29/2020. FINDINGS: Mild increased markings at the lung bases suggestive of atelectasis. This is more prominent on the left side. There is no demonstrated pleural abnormality. Normal size heart. Normal mediastinum and meche. Normal visualized pulmonary arteries. Normal visualized aortic arch and descending thoracic aorta. There are diffuse degenerative changes of the visualized thoracic spine. Increased thoracic kyphosis. Normal visualized ribs, clavicles, and shoulders. There is no demonstrated abnormality of the visualized soft tissue structures of the upper abdomen. RAD/Chest PA and Lateral IMPRESSION: Mild degree of increased signal markings at the lung bases worse at the left lung base suggestive of atelectasis. Electronically Signed: John Gibbons, at 14:52 EST , Service support ,
--- NOTE | 2020-09-11 14:24 | PCM.RX.CS ---
Consult Pharmacy has been consulted to manage selected antiobiotic: Vancomycin Type of Consult: Follow-up Suspected Infection: Osteomyelitis Prior Doses of Antibiotics Received/Current Regimen: Currently on 2gm iv q12h. Labs: Sodium 140 mmol/L (136-145) 09/09/20 06:25 Potassium 3.9 mmol/L (3.5-5.1) 09/09/20 06:25 Chloride 111 mmol/L (98-107) H 09/09/20 06:25 Carbon Dioxide 26.0 mmol/L (21.0-32.0) 09/09/20 06:25 Anion Gap 3 (5-15) L 09/09/20 06:25 BUN 13 mg/dL (7-18) 09/09/20 06:25 Creatinine 0.65 mg/dL (0.70-1.30) L 09/09/20 06:25 Est GFR (MDRD) Af Amer 160 mL/min (>60) 09/09/20 06:25 Est GFR (MDRD) Non-Af 132 mL/min (>60) 09/09/20 06:25 BUN/Creatinine Ratio 20.1 RATIO (10-20) H 09/09/20 06:25 Glucose 43 mg/dL (74-106) L* 09/09/20 06:25 Vancomycin Trough 12.1 ug/mL (5.0-15.0) 09/11/20 10:30 Weight used for dosin kg Estimated Creatinine Clearance: ~133ml/min Goal Trough: 15-20 mcg/mL Pharmacy Plan for Drug Dosing: Trough level today 12.1. Will continue 2gm iv q12h. A repeat trough level to be done in 4 days,. Pharmacy Service will continue to monitor and adjust dosing as required. Follow-Up Labs: Trough Vancomycin - 12.25.20 @1030 before 1100 dose
[2020-09-11 14:33] VITALS: BP 141/75; PULSE 75; RESP 17; TEMP 36.8; O2SAT 93
--- NOTE | 2020-09-11 15:03 | NURSING ---
pt refused this nurse to do dressing on left foot that has orders for dressing change 1-2x a day with drainage. reported to rn. pt also stated he did not want ANYONe updated.
--- NOTE | 2020-09-11 16:10 | PN.ID_ITS ---
Patient Problems: Active and Suspected Problems (Last Updated 08/28/20 @ 17:[address] Irene Claudio, [facility]) Debility (Acute) Peripheral vascular disease (Suspected) Cellulitis of right lower limb (Acute) Osteomyelitis of right foot (Acute) Subjective: Feeling ok. No h/o TB exposure, no night sweats, no hemoptysis, no weight loss. - Physical Exam Vitals/I&O's: Vital Signs Temp Pulse Resp BP Pulse Ox 98.3 F 75 17 141/75 H 93 09/11/20 14:33 09/11/20 14:33 09/11/20 14:33 09/11/20 14:33 09/11/20 14:33 Oxygen Delivery Method Room Air Weight: 167.999 kg Body Mass Index (BMI) 47.2 Finger Stick Blood Glucose 137 Intake and Output for Last 24 Hours 09/09/20 09/10/20 09/11/20 23:59 23:59 23:59 Intake Total 2776 / 2776 2816 / 2816 2654 / 2654 Balance 2776 / 2776 2816 / 2816 2654 / 2654 General: Alert, Cooperative, No apparent distress Lungs: Clear to auscultation, Normal air movement Cardiovascular: Regular rate, Regular Rhythm Abdomen: Soft, Non Tender, Non-Distended Skin: Ulcer/ Wound - legs wrapped, - - no raised induration on either forearm Microbiology Past 72 Hours 09/11/20 14:00 Nasal Secretion SARS-CoV-2 Antigen (Rapid) - Final Laboratory Results 09/10/20 16:24: POC Glucose 132 H 09/10/20 21:44: POC Glucose 146 H 09/11/20 06:10: POC Glucose 86 09/11/20 08:38: POC Glucose 157 H 09/11/20 10:30: Vancomycin Trough 12.1 09/11/20 10:56: POC Glucose 158 H 09/11/20 13:28: TB Test (QFT) Nil Pending, TB Test (QFT) Mitogen Pending, TB Test (QFT) Ag 1 Pending, TB Test (QFT) Ag 2 Pending, TB Test (QFT) Pending, TB Positive Criteria Pending Current Medications Acetaminophen (Acetaminophen 500 Mg Tablet) 1,000 mg PO Q6H PRN PRN Reason: Pain Score 1-10 Last Admin: 09/10/20 21:53 Dose: 1,000 mg Documented by: Aspirin (Aspirin E.C. 81 Mg Tablet) 81 mg PO DAILY@0800 [facility] Last Admin: 09/11/20 08:33 Dose: 81 mg Documented by: Atorvastatin Calcium (Atorvastatin Calcium 40 Mg Tablet) 40 mg PO DAILY [facility] Last Admin: 09/11/20 06:10 Dose: 40 mg Documented by: Bisacodyl (Bisacodyl 10 Mg Suppository) 10 mg RECTAL DAILY PRN PRN Reason: Constipation Bupropion HCl (Bupropion (Sr) 150 Mg Tablet.Sa) 150 mg PO BID [facility] Last Admin: 09/11/20 06:09 Dose: 150 mg Documented by: Calcium Carbonate (Calcium (Elemental) 500 Mg Tablet) 500 mg PO DAILY@0800 [facility] Last Admin: 09/11/20 08:32 Dose: 500 mg Documented by: Enoxaparin Sodium (Enoxaparin 40 Mg/0.4 Ml Syringe) 40 mg SC DAILY [facility] Last Admin: 09/11/20 06:09 Dose: 40 mg Documented by: Gabapentin (Gabapentin 600 Mg Tablet) 600 mg PO TIDCM [facility] Last Admin: 09/11/20 11:46 Dose: 600 mg Documented by: Heparin Sodium (Beef Lung) (Heparin Pf Lock 10 Units/Ml 50 Units/5 Ml Syringe) 50 units IV UD PRN PRN Reason: PICC Line Heparin Flush Last Admin: 09/06/20 06:46 Dose: 50 units Documented by: Vancomycin HCl 2,000 mg/ (Sodium Chloride) 540 mls @ 250 mls/hr IV Q12H [facility] Stop: 10/10/20 10:59 Last Infusion: 09/11/20 14:07 Dose: Infused Documented by: Sodium Chloride () 250 mls @ 15 mls/hr IV .[id number] PRN PRN Reason: Saline Flush Last Infusion: 09/11/20 06:51 Dose: Infused Documented by: Sodium Chloride () 250 mls @ 15 mls/hr IV .[id number] PRN PRN Reason: Additional IVPB Infusion Ampicillin Sodium/Sulbactam (Sodium 3 gm/ Sodium Chloride) 112 mls @ 150 mls/hr IV Q8 [facility] Stop: 10/10/20 12:00 Last Infusion: 09/11/20 15:35 Dose: Infused Documented by: Insulin Human Regular (Insulin U-500 Pen) 110 units SC BREAKFAST [facility] Last Admin: 09/11/20 08:38 Dose: 110 units Documented by: Insulin Human Regular (Insulin U-500 Pen) 110 units SC DINNER [facility] Last Admin: 09/10/20 17:50 Dose: 110 units Documented by: Insulin Human Regular (Insulin U-500 Pen) 110 units SC LUNCH [facility] Last Admin: 09/11/20 11:46 Dose: 110 units Documented by: L-Arginine/L-Glutamine/Calcium HMB (Brett (Unflavored) Packet) 1 packet PO BIDCM [facility] Last Admin: 09/11/20 08:32 Dose: Not Given Documented by: Lisinopril (Lisinopril 40 Mg Tablet) 40 mg PO DAILY [facility] Last Admin: 09/11/20 06:09 Dose: 40 mg Documented by: Magnesium Hydroxide (Magnesium Hydroxide 30 Ml Udc) 30 ml PO DAILY PRN PRN Reason: Constipation Multivitamins (Multivitamins,Therapeutic Tablet) 1 tablet PO DAILY@0800 [facility] Last Admin: 09/11/20 08:33 Dose: 1 tablet Documented by: Nicotine (Nicotine 21 Mg Patch) 21 mg TD DAILY [facility] Last Admin: 09/11/20 05:59 Dose: 21 mg Documented by: Polyethylene Glycol (Polyethylene Glycol 3350 17 Gm Packet) 17 gm PO DAILY [facility] Last Admin: 09/11/20 05:57 Dose: Not Given Documented by: Povidone Iodine (Povidone-Iodine Swabstick) 1 packet TOPICAL 1000 [facility]; Protocol Last Admin: 09/10/20 22:11 Dose: 1 packet Documented by: Senna/Docusate Sodium (Senna/Docusate Sodium 1 Tablet) 1 tablet PO BID [facility] Last Admin: 09/11/20 05:57 Dose: Not Given Documented by: Sodium Chloride (0.9% Saline Lock 10 Ml Syringe) 10 - 40 ml IV UD PRN PRN Reason: Open End PICC Flush Last Admin: 09/11/20 15:35 Dose: 20 ml Documented by: Sodium Chloride (0.9 % Nacl (Sterile) Posiflush 10 Ml) 10 - 40 ml IV UD PRN PRN Reason: Port access or dressing change Tamsulosin HCl (Tamsulosin Hcl 0.4 Mg Capsule) 0.4 mg PO DAILY@1730 [facility] Last Admin: 09/10/20 17:50 Dose: 0.4 mg Documented by: Medical Necessity - Tobacco Use Smoking Status: Heavy Smoker (>10/day) Tobacco Use: Cigarettes Route of nutrition/ use of supplements: [] Nutritional Intake: [] IV Site: [] Dyer Catheter: [] - Assessment/Plan Antibiotics: [] Assessment/Plan: [] Active and Suspected Problems (Last Updated 08/28/20 @ 17:[address] Irene Claudio, [facility]) Debility (Acute) Peripheral vascular disease (Suspected) Cellulitis of right lower limb (Acute) Osteomyelitis of right foot (Acute) R foot osteo with uncontrolled DM - recent cxs with mrsa, enterococcus, klebs, strep mitis/oralis, and diphtheroids. OR 08/[address] Powell. Plan at this point will be 6 weeks iv vanc/unasyn, stop date 10/10/20, weekly bmp, cbc, esr, LFT, and vanc trough. reported abnormal PPD - no raised induration on exam this afternoon, no sx of active TB, no known exposures. Will check quantiferon but overall do not think this represents a true active or latent TB infection. Will follow
[2020-09-11 17:00] LABS: Bedside Glucose 129 mg/dL (70-110)
[2020-09-11] MEDS: Tamsulosin HCl 0.4 MG Capsule PO (17:54)
--- NOTE | 2020-09-11 17:56 | NURSING ---
nicotine patch verified to left shoulder
[2020-09-11] MEDS: Povidone-Iodine Swabstick 1 PACKET TOPICAL (20:51)
[2020-09-11 21:51] LABS: Bedside Glucose 131 mg/dL (70-110)
[2020-09-12 05:00] VITALS: BP 145/75; PULSE 77; RESP 18; TEMP 36.6; O2SAT 93
[2020-09-12 06:21] LABS: Bedside Glucose 105 mg/dL (70-110)
[2020-09-12] MEDS: Lisinopril 40 MG Tablet PO (06:23)
[2020-09-12] MEDS: Enoxaparin 40 MG/0.4 ML Syringe SC (06:23)
[2020-09-12] MEDS: buPROPion (SR) 150 MG Tablet.SA PO ×2 (06:23→17:56)
[2020-09-12] MEDS: Atorvastatin Calcium 40 MG Tablet PO (06:23)
[2020-09-12] MEDS: 0.9% Saline Lock 10 ML Syringe IV ×4 (07:32→22:19)
[2020-09-12] MEDS: Gabapentin 600 MG Tablet PO ×3 (08:04→17:55)
[2020-09-12] MEDS: Multivitamins,Therapeutic Tablet 1 TABLET PO (08:04)
[2020-09-12] MEDS: Aspirin E.C. 81 MG Tablet PO (08:04)
[2020-09-12] MEDS: Calcium (Elemental) 500 MG Tablet PO (08:05)
[2020-09-12 10:00] VITALS: PULSE 77; RESP 18; O2SAT 93
[2020-09-12 11:16] LABS: Bedside Glucose 183 mg/dL (70-110)
--- NOTE | 2020-09-12 13:00 | NURSING ---
THIS NURSE REMINDED PT THAT HE NEEDS TO WEAR HIS SURGICAL SHOES WHEN WALKING. PT STATED THEY DONT FIT SHIREEN NOT WEARING THEM. THIS NURSE STATED I COULD FIND SOME OTHERS.PT STATED NO. REPORTED TO RN
[2020-09-12] MEDS: Povidone-Iodine Swabstick 1 PACKET TOPICAL (14:03)
[2020-09-12 14:51] VITALS: BP 142/88; PULSE 73; RESP 16; TEMP 36.2; O2SAT 93
--- NOTE | 2020-09-12 15:46 | NURSING ---
NICOTINE PATCH VERIFIED TO PT RIGHT SHOULDER
[2020-09-12 16:45] LABS: Bedside Glucose 150 mg/dL (70-110)
--- NOTE | 2020-09-12 16:45 | PN_ITS ---
Patient Problems: Active and Suspected Problems (Last Updated 08/28/20 @ 17:[address] Irene Claudio, [facility]) Debility (Acute) Peripheral vascular disease (Suspected) Cellulitis of right lower limb (Acute) Osteomyelitis of right foot (Acute) Subjective: This 65-year-old male with diabetes and other comorbidities was seen bedside [facility] right foot fifth ray resection and chronic ulcer of the left plantar medial foot (prior transmetatarsal amputation). He denies fever, chill, nausea, vomiting, foot pain. He relates he is able to stay off of his feet better while in the transitional care unit. He continues on IV antibiotics. - Physical Exam Vitals/I&O's: Vital Signs Temp Pulse Resp BP Pulse Ox 97.2 F L 73 16 142/88 H 93 09/12/20 14:51 09/12/20 14:51 09/12/20 14:51 09/12/20 14:51 09/12/20 14:51 Oxygen Delivery Method Room Air Weight: 166.695 kg Body Mass Index (BMI) 47.2 Finger Stick Blood Glucose 137 Intake and Output for Last 24 Hours 09/10/20 09/11/20 09/12/20 23:59 23:59 23:59 Intake Total 2816 / 2816 2886 / 2886 2063 Balance 2816 / 2816 2886 / 2886 2063 General: Alert, Oriented x3, Cooperative Extremities: No cyanosis, No edema, No Calf Tenderness, Diminished Peripheral Pulses, Edema, - - Left transmetatarsal amputation. Right fifth ray resection. Compartment soft. No bogginess or fluctuance on palpation. Skin: Ulcer/ Wound - No purulence, erythema, streaking, odor, infection, necrosis, maceration in bilateral lower extremities. Adjacent skin is hairless and atrophic bilateral. Remaining granular base wound right lateral forefoot measures 1 cm x 1 cm x 0.2 cm (post debride) (predebrid 0.9 x0.9 x 0.2cm), - - Plantar medial left granular base ulcer measures 1.4 x 1.2 x 0.2 cm post debridement (predebridement 1.3 x 1.1 x 0.2 cm). There are also some excoriations and in a cluster of granular base ulcers to the right anterior leg with no deep tissue exposed or infection Musculoskeletal: No Tenderness to Palpation of Joints or Extremities, Muscle Wasting Neurological: - - Lack of normal epicritic sensation to light touch is consistent with his neuropathy status Psych/Mental Status: Normal Affect, Appropriate Microbiology Past 72 Hours 09/11/20 14:00 Nasal Secretion SARS-CoV-2 Antigen (Rapid) - Final Laboratory Results 09/11/20 16:48: POC Glucose 129 H 09/11/20 21:41: POC Glucose 131 H 09/12/20 06:14: POC Glucose 105 09/12/20 11:04: POC Glucose 183 H Current Medications Acetaminophen (Acetaminophen 500 Mg Tablet) 1,000 mg PO Q6H PRN PRN Reason: Pain Score 1-10 Last Admin: 09/10/20 21:53 Dose: 1,000 mg Documented by: Aspirin (Aspirin E.C. 81 Mg Tablet) 81 mg PO DAILY@0800 [facility] Last Admin: 09/12/20 08:04 Dose: 81 mg Documented by: Atorvastatin Calcium (Atorvastatin Calcium 40 Mg Tablet) 40 mg PO DAILY [facility] Last Admin: 09/12/20 06:23 Dose: 40 mg Documented by: Bisacodyl (Bisacodyl 10 Mg Suppository) 10 mg RECTAL DAILY PRN PRN Reason: Constipation Bupropion HCl (Bupropion (Sr) 150 Mg Tablet.Sa) 150 mg PO BID [facility] Last Admin: 09/12/20 06:23 Dose: 150 mg Documented by: Calcium Carbonate (Calcium (Elemental) 500 Mg Tablet) 500 mg PO DAILY@0800 [facility] Last Admin: 09/12/20 08:05 Dose: 500 mg Documented by: Enoxaparin Sodium (Enoxaparin 40 Mg/0.4 Ml Syringe) 40 mg SC DAILY [facility] Last Admin: 09/12/20 06:23 Dose: 40 mg Documented by: Gabapentin (Gabapentin 600 Mg Tablet) 600 mg PO TIDCM [facility] Last Admin: 09/12/20 11:57 Dose: 600 mg Documented by: Heparin Sodium (Beef Lung) (Heparin Pf Lock 10 Units/Ml 50 Units/5 Ml Syringe) 50 units IV UD PRN PRN Reason: PICC Line Heparin Flush Last Admin: 09/06/20 06:46 Dose: 50 units Documented by: Vancomycin HCl 2,000 mg/ (Sodium Chloride) 540 mls @ 250 mls/hr IV Q12H [facility] Stop: 10/10/20 10:59 Last Infusion: 09/12/20 13:56 Dose: Infused Documented by: Sodium Chloride () 250 mls @ 15 mls/hr IV .[id number] PRN PRN Reason: Saline Flush Last Infusion: 09/11/20 06:51 Dose: Infused Documented by: Sodium Chloride () 250 mls @ 15 mls/hr IV .[id number] PRN PRN Reason: Additional IVPB Infusion Ampicillin Sodium/Sulbactam (Sodium 3 gm/ Sodium Chloride) 112 mls @ 150 mls/hr IV Q8 [facility] Stop: 10/10/20 12:00 Last Infusion: 09/12/20 14:49 Dose: Infused Documented by: Insulin Human Regular (Insulin U-500 Pen) 110 units SC BREAKFAST [facility] Last Admin: 09/12/20 08:05 Dose: 110 units Documented by: Insulin Human Regular (Insulin U-500 Pen) 110 units SC DINNER [facility] Last Admin: 09/11/20 17:53 Dose: 110 units Documented by: Insulin Human Regular (Insulin U-500 Pen) 110 units SC LUNCH [facility] Last Admin: 09/12/20 11:58 Dose: 110 units Documented by: L-Arginine/L-Glutamine/Calcium HMB (Brett (Unflavored) Packet) 1 packet PO BIDCM [facility] Last Admin: 09/12/20 08:04 Dose: Not Given Documented by: Lisinopril (Lisinopril 40 Mg Tablet) 40 mg PO DAILY [facility] Last Admin: 09/12/20 06:23 Dose: 40 mg Documented by: Magnesium Hydroxide (Magnesium Hydroxide 30 Ml Udc) 30 ml PO DAILY PRN PRN Reason: Constipation Multivitamins (Multivitamins,Therapeutic Tablet) 1 tablet PO DAILY@0800 [facility] Last Admin: 09/12/20 08:04 Dose: 1 tablet Documented by: Nicotine (Nicotine 21 Mg Patch) 21 mg TD DAILY [facility] Last Admin: 09/12/20 06:22 Dose: 21 mg Documented by: Polyethylene Glycol (Polyethylene Glycol 3350 17 Gm Packet) 17 gm PO DAILY [facility] Last Admin: 09/12/20 06:24 Dose: Not Given Documented by: Povidone Iodine (Povidone-Iodine Swabstick) 1 packet TOPICAL 1000 [facility]; Protocol Last Admin: 09/12/20 14:03 Dose: 1 packet Documented by: Senna/Docusate Sodium (Senna/Docusate Sodium 1 Tablet) 1 tablet PO BID [facility] Last Admin: 09/12/20 06:24 Dose: Not Given Documented by: Sodium Chloride (0.9% Saline Lock 10 Ml Syringe) 10 - 40 ml IV UD PRN PRN Reason: Open End PICC Flush Last Admin: 09/12/20 13:56 Dose: 40 ml Documented by: Sodium Chloride (0.9 % Nacl (Sterile) Posiflush 10 Ml) 10 - 40 ml IV UD PRN PRN Reason: Port access or dressing change Tamsulosin HCl (Tamsulosin Hcl 0.4 Mg Capsule) 0.4 mg PO DAILY@1730 [facility] Last Admin: 09/11/20 17:54 Dose: 0.4 mg Documented by: Medical Necessity - Tobacco Use Smoking Status: Heavy Smoker (>10/day) Tobacco Use: Cigarettes Assessment/Plan All Active Problems (Last Updated 08/28/20 @ 17:[address] Irene Claudio, [facility]) Debility (Acute) Cellulitis of right lower limb (Acute) Osteomyelitis of right foot (Acute) Osteomyelitis right 5th metatarsal s/p 5th ray resection right foot 08/29/[address] Powell with healing ulcer Left foot ulcer down to subcutaneous tissue (causey grade 1, no infection) Transmetatarsal amputation left foot Uncontrolled diabetes with neuropathy Other comorbidities include tobacco abuse, obesity, sleep apnea, hyperlipidemia, hypertension, prior stage II kidney disease, BPH Patient seen and examined. He remains afebrile with vital signs stable. Excisional debridement was performed to right and left foot utilizing a 15 blade scalpel after verbal consent was obtained to remove devitalized subcutaneous tissue, fibrous tissue, biofilm and slough. Pressure was applied to maintain hemostasis and he tolerated this well. Cleansed with normal saline soln, applied Aquacel Ag, gauze, kerlix and guerrero. To change daily. To continue to offload. No anesthesia needed due to neuropathy. Continue with antibiotic therapy per ID service. He is currently being treated for right foot osteomyelitis. His recent culture growth includes mrsa, enterococcus, klebs, strep mitis/oralis, and diphtheroids. The plan is for 6 weeks iv vanc/unasyn with stop date 10/10/20. Serial labs will be followed. PVRs from April 2020 were reviewed showing an KANDI of 0.94 which should show adequate blood flow for healing after surgery. No weightbearing to ulcer sites. Patient is to limit weightbearing as much as possible, but if have to focus on heel weightbearing in surgical shoes with ulcers offloaded. Podiatry will continue to follow weekly, call sooner if needed To follow up at the wound healing center after discharge. I answered his questions. Irene Claudio DPM, [facility] [phone]
[2020-09-12] MEDS: Tamsulosin HCl 0.4 MG Capsule PO (17:55)
--- NOTE | 2020-09-12 18:45 | NURSING ---
DR SIMPSON IN TO SEE PT FEET.
[2020-09-12] MEDS: Acetaminophen 500 MG Tablet 1000 MG PO (20:54)
[2020-09-12 21:45] LABS: Bedside Glucose 169 mg/dL (70-110)
[2020-09-13 06:26] LABS: Bedside Glucose 79 mg/dL (70-110)
[2020-09-13 06:33] VITALS: BP 134/32; PULSE 83; RESP 18; TEMP 36.3; O2SAT 94
[2020-09-13] MEDS: Lisinopril 40 MG Tablet PO (06:41)
[2020-09-13] MEDS: Gabapentin 600 MG Tablet PO ×3 (06:41→17:59)
[2020-09-13] MEDS: Enoxaparin 40 MG/0.4 ML Syringe SC (06:41)
[2020-09-13] MEDS: Atorvastatin Calcium 40 MG Tablet PO (06:41)
[2020-09-13] MEDS: buPROPion (SR) 150 MG Tablet.SA PO ×2 (06:42→17:59)
[2020-09-13] MEDS: 0.9% Saline Lock 10 ML Syringe IV ×2 (06:45→11:20)
[2020-09-13] MEDS: Multivitamins,Therapeutic Tablet 1 TABLET PO (08:18)
[2020-09-13] MEDS: Aspirin E.C. 81 MG Tablet PO (08:18)
[2020-09-13] MEDS: Calcium (Elemental) 500 MG Tablet PO (08:19)
[2020-09-13 10:36] LABS: Bedside Glucose 128 mg/dL (70-110)
--- NOTE | 2020-09-13 13:45 | MDS.RN ---
Information for the mds was obtained from review of the clinical record, interview of resident, staff, and direct observation of resident's care.
[2020-09-13 14:22] VITALS: BP 156/78; PULSE 77; RESP 18; TEMP 37.3; O2SAT 93
--- NOTE | 2020-09-13 14:31 | NURSING ---
BS was 128 prior to lunch, insulin held waiting to see if pt ate lunch. BS rechecked after lunch pt ate well, new BS 187
[2020-09-13 14:36] LABS: Bedside Glucose 187 mg/dL (70-110)
[2020-09-13 16:15] VITALS: PULSE 71; RESP 18; O2SAT 96
--- NOTE | 2020-09-13 16:36 | NURSING ---
Dressing change to bilateral feet. Pt tolerated well. Minimal draining on the left bottom foot noted.
[2020-09-13 16:46] LABS: Bedside Glucose 144 mg/dL (70-110)
[2020-09-13] MEDS: Tamsulosin HCl 0.4 MG Capsule PO (17:58)
[2020-09-13 21:46] LABS: Bedside Glucose 83 mg/dL (70-110)
[2020-09-13] MEDS: Acetaminophen 500 MG Tablet 1000 MG PO (23:09)
--- NOTE | 2020-09-14 02:00 | NURSING ---
Talked to the nursing concrete stone fabricating supervisor about cath lisbeth. Nursing concrete stone fabricating supervisor states to not do it due to other line still working.
[2020-09-14 06:04] VITALS: BP 149/62; PULSE 79; RESP 16; TEMP 36.6; O2SAT 94
[2020-09-14 06:20] LABS: Bedside Glucose 62 mg/dL (70-110)
[2020-09-14] MEDS: 0.9% Saline Lock 10 ML Syringe IV ×5 (06:20→22:21)
[2020-09-14] MEDS: Enoxaparin 40 MG/0.4 ML Syringe SC (06:21)
[2020-09-14] MEDS: Gabapentin 600 MG Tablet PO ×3 (06:21→17:23)
[2020-09-14] MEDS: buPROPion (SR) 150 MG Tablet.SA PO ×2 (06:22→17:24)
[2020-09-14] MEDS: Lisinopril 40 MG Tablet PO (06:22)
[2020-09-14] MEDS: Atorvastatin Calcium 40 MG Tablet PO (06:22)
[2020-09-14 07:26] LABS: Bedside Glucose 85 mg/dL (70-110)
[2020-09-14] MEDS: Aspirin E.C. 81 MG Tablet PO (08:29)
[2020-09-14] MEDS: Calcium (Elemental) 500 MG Tablet PO (08:30)
[2020-09-14 08:41] LABS: Bedside Glucose 127 mg/dL (70-110)
[2020-09-14 10:51] LABS: Bedside Glucose 169 mg/dL (70-110)
[2020-09-14] MEDS: Multivitamins,Therapeutic Tablet 1 TABLET PO (10:55)
--- NOTE | 2020-09-14 11:49 | NURSING ---
THIS NURSE HELD PT HUMULIN RU-500 AT BREAKFAST WITH THE OK FROM PT. PT STATED HE STILL WASN'T FEELING WELL. BLOOD SUGAR WAS 85 THEN RECHECKED AND 127. PT BLOOD SUGAR AT LUNCH 169 AND PT STATED HE FELT BETTER BUT ONLY WANTED 75 UNITS. RN AND AWARE.
--- NOTE | 2020-09-14 13:27 | NURSING ---
Addendum entered by Shivani Gonzalez 09/14/20 17:32: surgeon assistant here assessed line and felt it was flushing both lines and good blood return. If feel it continues to give us issues, notify them Original Note: surgeon assistant notified of pt needing new picc line d/t lines clotting off many times even after cath lisbeth administration. They will return call with arrival time
[2020-09-14 15:26] VITALS: BP 159/69; PULSE 70; RESP 16; TEMP 36.8; O2SAT 94
[2020-09-14 16:35] LABS: Bedside Glucose 221 mg/dL (70-110)
--- NOTE | 2020-09-14 16:40 | NUR.TO.PHY ---
PT STATED HE DID NOT WANT ANYONE CALLED HE WOULD UPDATE SON.
[2020-09-14] MEDS: Juven (unflavored) Packet 1 PACKET PO (17:22)
[2020-09-14] MEDS: Tamsulosin HCl 0.4 MG Capsule PO (17:23)
[2020-09-14 21:31] LABS: Bedside Glucose 204 mg/dL (70-110)
[2020-09-14 23:15] VITALS: PULSE 70; RESP 18; O2SAT 97
[2020-09-14] MEDS: Povidone-Iodine Swabstick 1 PACKET TOPICAL (23:22)
--- NOTE | 2020-09-15 01:55 | NURSING ---
Pt amb while holding onto overbed table, slightly unsteady, when asked why he uses over bed table and not walker that is in room states sonia been doing this forever and i dont want to use the walker, im sleepy, thats why im unsteady edcuated that needs to use walker to be safe. pt cont to refuse and cont to use over bed table, observed returning to bed
[2020-09-15 02:15] LABS: Bedside Glucose 269 mg/dL (70-110)
[2020-09-15 05:00] VITALS: BP 156/76; PULSE 76; RESP 18; TEMP 36.7; O2SAT 94
[2020-09-15 06:26] LABS: Bedside Glucose 312 mg/dL (70-110)
[2020-09-15] MEDS: Enoxaparin 40 MG/0.4 ML Syringe SC (06:26)
[2020-09-15] MEDS: Lisinopril 40 MG Tablet PO (06:27)
[2020-09-15] MEDS: Atorvastatin Calcium 40 MG Tablet PO (06:27)
[2020-09-15] MEDS: buPROPion (SR) 150 MG Tablet.SA PO ×2 (06:27→17:42)
[2020-09-15] MEDS: Gabapentin 600 MG Tablet PO ×3 (06:27→17:42)
[2020-09-15] MEDS: 0.9% Saline Lock 10 ML Syringe IV ×4 (06:34→22:58)
[2020-09-15] MEDS: Aspirin E.C. 81 MG Tablet PO (08:14)
[2020-09-15] MEDS: Multivitamins,Therapeutic Tablet 1 TABLET PO (08:15)
[2020-09-15] MEDS: Calcium (Elemental) 500 MG Tablet PO (08:15)
[2020-09-15 10:56] LABS: Vancomycin, Trough Level 11.2 ug/mL (5.0-15.0)
[2020-09-15 11:45] LABS: Bedside Glucose 220 mg/dL (70-110)
[2020-09-15 15:00] VITALS: BP 167/77; PULSE 73; RESP 20; TEMP 36.6; O2SAT 95
[2020-09-15] MEDS: Povidone-Iodine Swabstick 1 PACKET TOPICAL (16:11)
[2020-09-15 16:46] LABS: Bedside Glucose 273 mg/dL (70-110)
[2020-09-15] MEDS: Tamsulosin HCl 0.4 MG Capsule PO (17:41)
[2020-09-15] MEDS: Juven (unflavored) Packet 1 PACKET PO (17:42)
[2020-09-15 21:51] LABS: Bedside Glucose 237 mg/dL (70-110)
--- NOTE | 2020-09-15 23:42 | NURSING ---
Pt had taken shower earlier this juliana, terry feet dressings were noted at this time to be wet, pt did not notify staff, dressings changed, advised to ask for assist with shower next time and notify staff if dressings get wet
[2020-09-16 04:41] VITALS: BP 160/64; PULSE 80; RESP 17; TEMP 36.8; O2SAT 94
[2020-09-16 06:20] LABS: Absolute Lymphocyte Count 1.94 X10^3/uL (0.83-4.51); Absolute Neutrophil Count 6.3 X10^3/uL (2.0-7.7); Eosinophil# 0.44 X10^3/uL; Eosinophils% 4.6 % (0-5); Hematocrit 39.8 % (40-54); Hemoglobin 12.4 g/dL (13.0-16.5); Lymphocyte # 1.94 X10^3/ul (4.0); Lymphocyte % 20.1 % (19-41); Mean Corp Hgb Conc 31.2 g/dL (32-36); Mean Corpuscular Hgb 28.3 pg (27.0-32.0); Mean Corpuscular Volume 90.9 fL (80-94); Mean Platelet Vol. 10.2 fl (6.2-12.0); Monocyte# 0.81 X10^3/uL; Monocyte% 8.4 % (0-10); NRBC Flagged by Analyzer 0 % (0-5); Neutrophil # 6.26 X10^3/uL (2.7-7.7); Neutrophil % 64.7 % (47-70); Platelet Count 229 K/mm3 (150-450); RBC Distribution Width CV 14.3 % (11.6-14.6); RBC Distribution Width SD 47.8 fl (35.1-43.9); Red Blood Count 4.38 M/mm3 (4.6-6.2); White Blood Count 9.7 K/mm3 (4.4-11.0)
[2020-09-16] MEDS: 0.9% Saline Lock 10 ML Syringe IV ×4 (06:20→21:50)
[2020-09-16 06:21] LABS: Bedside Glucose 124 mg/dL (70-110)
[2020-09-16] MEDS: Enoxaparin 40 MG/0.4 ML Syringe SC (06:22)
[2020-09-16] MEDS: Lisinopril 40 MG Tablet PO (06:23)
[2020-09-16] MEDS: Atorvastatin Calcium 40 MG Tablet PO (06:23)
[2020-09-16] MEDS: buPROPion (SR) 150 MG Tablet.SA PO ×2 (06:23→17:33)
[2020-09-16 06:50] LABS: Erythrocyte Sedimentation Rate 66 mm/hr (0-20)
[2020-09-16 07:04] LABS: AST(SGOT) 20 U/L (15-37); Alanine Aminotransfer ALT/SGPT 27 U/L (16-61); Albumin, Serum 2.7 g/dL (3.2-5.0); Alkaline Phosphatase 68 U/L (45-117); Anion Gap 4 (5-15); BUN 10 mg/dL (7-18); BUN/Creat Ratio 13.7 RATIO (10-20); Bilirubin, Direct 0.08 mg/dL (0.00-0.30); Calcium,Total 8.3 mg/dL (8.5-10.1); Chloride 109 mmol/L (98-107); Creatinine, Serum 0.73 mg/dL (0.70-1.30); EST Glomerular Filtration Rate 115 mL/min (>60); Est Glom Filt Rate - Afr Amer 139 mL/min (>60); Estimated Creatinine Clearance 118.86 ml/min; Globulin 4.4 g/dL (2.2-4.2); Glucose 113 mg/dL (74-106); Potassium 3.9 mmol/L (3.5-5.1); Protein, Total 7.1 g/dL (6.4-8.2); Sodium Level 139 mmol/L (136-145)
[2020-09-16] MEDS: Gabapentin 600 MG Tablet PO ×3 (08:04→17:33)
[2020-09-16] MEDS: Aspirin E.C. 81 MG Tablet PO (08:04)
[2020-09-16] MEDS: Multivitamins,Therapeutic Tablet 1 TABLET PO (08:05)
[2020-09-16] MEDS: Calcium (Elemental) 500 MG Tablet PO (08:06)
--- NOTE | 2020-09-16 10:15 | NURSING ---
Dressings changed to b/l feet per orders
[2020-09-16] MEDS: Povidone-Iodine Swabstick 1 PACKET TOPICAL (10:51)
[2020-09-16 11:46] LABS: Bedside Glucose 172 mg/dL (70-110)
[2020-09-16 16:00] VITALS: BP 184/76; PULSE 72; RESP 19; TEMP 37.1; O2SAT 94
[2020-09-16 16:51] LABS: Bedside Glucose 151 mg/dL (70-110)
[2020-09-16] MEDS: Tamsulosin HCl 0.4 MG Capsule PO (17:33)
[2020-09-16] MEDS: Acetaminophen 500 MG Tablet 1000 MG PO (17:37)
[2020-09-16 19:45] VITALS: BP 148/58; PULSE 76; RESP 18; TEMP 37.3; O2SAT 94
[2020-09-16 21:10] LABS: Bedside Glucose 210 mg/dL (70-110)
[2020-09-17] MEDS: Acetaminophen 500 MG Tablet 1000 MG PO (01:21)
[2020-09-17 06:26] LABS: Bedside Glucose 118 mg/dL (70-110)
[2020-09-17 06:47] VITALS: BP 151/72; PULSE 68; RESP 18; TEMP 36.4; O2SAT 95
[2020-09-17] MEDS: Lisinopril 40 MG Tablet PO (06:48)
[2020-09-17] MEDS: buPROPion (SR) 150 MG Tablet.SA PO ×2 (06:48→17:13)
[2020-09-17] MEDS: Atorvastatin Calcium 40 MG Tablet PO (06:48)
[2020-09-17] MEDS: Enoxaparin 40 MG/0.4 ML Syringe SC (06:48)
[2020-09-17] MEDS: 0.9% Saline Lock 10 ML Syringe IV ×4 (06:52→22:09)
[2020-09-17] MEDS: Gabapentin 600 MG Tablet PO ×3 (07:22→17:14)
[2020-09-17] MEDS: Multivitamins,Therapeutic Tablet 1 TABLET PO (08:01)
[2020-09-17] MEDS: Calcium (Elemental) 500 MG Tablet PO (08:03)
[2020-09-17] MEDS: Aspirin E.C. 81 MG Tablet PO (08:05)
[2020-09-17 10:00] VITALS: PULSE 85; RESP 16; O2SAT 96
[2020-09-17] MEDS: Povidone-Iodine Swabstick 1 PACKET TOPICAL (10:30)
[2020-09-17 11:36] LABS: Bedside Glucose 125 mg/dL (70-110)
[2020-09-17 15:43] VITALS: BP 189/100; PULSE 71; RESP 18; TEMP 36.7; O2SAT 95
[2020-09-17 16:35] LABS: Bedside Glucose 160 mg/dL (70-110)
[2020-09-17] MEDS: Tamsulosin HCl 0.4 MG Capsule PO (17:13)
[2020-09-17 21:11] LABS: Bedside Glucose 122 mg/dL (70-110)
[2020-09-18 06:41] LABS: Bedside Glucose 102 mg/dL (70-110)
[2020-09-18] MEDS: Atorvastatin Calcium 40 MG Tablet PO (06:46)
[2020-09-18] MEDS: buPROPion (SR) 150 MG Tablet.SA PO ×2 (06:46→18:03)
[2020-09-18] MEDS: Lisinopril 40 MG Tablet PO (06:46)
[2020-09-18] MEDS: Enoxaparin 40 MG/0.4 ML Syringe SC (06:46)
[2020-09-18] MEDS: 0.9% Saline Lock 10 ML Syringe IV ×4 (06:49→22:09)
[2020-09-18] MEDS: Gabapentin 600 MG Tablet PO ×3 (08:54→18:03)
[2020-09-18] MEDS: Calcium (Elemental) 500 MG Tablet PO (08:54)
[2020-09-18] MEDS: Multivitamins,Therapeutic Tablet 1 TABLET PO (08:54)
[2020-09-18] MEDS: Aspirin E.C. 81 MG Tablet PO (08:58)
[2020-09-18 11:10] LABS: Bedside Glucose 209 mg/dL (70-110)
--- NOTE | 2020-09-18 14:12 | PN_ITS ---
Patient Problems: Active and Suspected Problems (Last Updated 08/28/20 @ 17:[address] Irene Claudio, [facility]) Debility (Acute) Peripheral vascular disease (Suspected) Cellulitis of right lower limb (Acute) Osteomyelitis of right foot (Acute) Subjective: Patient seen and examined in bedside chair. Patient denies N/F/V/C/CP/SOB/stre aking/purulence/diarrhea. - Physical Exam Vitals/I&O's: Vital Signs Temp Pulse Resp BP Pulse Ox 98.0 F 71 18 189/100 H 95 09/17/20 15:43 09/17/20 15:43 09/17/20 15:43 09/17/20 15:43 09/17/20 15:43 Oxygen Delivery Method Room Air Weight: 166.695 kg Body Mass Index (BMI) 47.2 Finger Stick Blood Glucose 137 Intake and Output for Last 24 Hours 09/16/20 09/17/20 09/18/20 23:59 23:59 23:59 Intake Total 2316 / 2316 2967.75 / 2967.75 215 / 2 Output Total 650 / 650 225 / 225 Balance 1666 / 1666 2742.75 / 2742.75 2151 / 2151 General: Alert, Oriented x3 HEENT: Atraumatic Abdomen: Obese Extremities: No clubbing, No cyanosis, Capillary Refill Less than 3 Seconds, No Calf Tenderness, Diminished Peripheral Pulses, Edema Skin: Ulcer/ Wound - left foot plantar midfoot uceration with surrounding callus tissue. Right lateral foot ucleration along amputation incision centrally. Multiple right leg ulcers. All sites into level of fat/fascia, no surrounding edema/erythema, no purulence, granular base, no signs of infection Musculoskeletal: No Tenderness to Palpation of Joints or Extremities, - - right 5th ray resection, left TMA Neurological: - - lack of epicritic sensation Psych/Mental Status: Normal Affect, Appropriate, Alert and oriented to time, place, person, mood and affect Microbiology Past 72 Hours 09/18/20 12:20 Nasal Secretion SARS-CoV-2 Antigen (Rapid) - Final Laboratory Results 09/17/20 16:29: POC Glucose 160 H 09/17/20 21:01: POC Glucose 122 H 09/18/20 06:09: POC Glucose 102 09/18/20 11:02: POC Glucose 209 H Current Medications Acetaminophen (Acetaminophen 500 Mg Tablet) 1,000 mg PO Q6H PRN PRN Reason: Pain Score 1-10 Last Admin: 09/17/20 01:21 Dose: 1,000 mg Documented by: Alteplase, Recombinant (Alteplase 2 Mg/2 Ml Vial) 2 mg IV DAILY PRN PRN PRN Reason: clotted central line port Aspirin (Aspirin E.C. 81 Mg Tablet) 81 mg PO DAILY@0800 [facility] Last Admin: 09/18/20 08:58 Dose: 81 mg Documented by: Atorvastatin Calcium (Atorvastatin Calcium 40 Mg Tablet) 40 mg PO DAILY [facility] Last Admin: 09/18/20 06:46 Dose: 40 mg Documented by: Bisacodyl (Bisacodyl 10 Mg Suppository) 10 mg RECTAL DAILY PRN PRN Reason: Constipation Bupropion HCl (Bupropion (Sr) 150 Mg Tablet.Sa) 150 mg PO BID [facility] Last Admin: 09/18/20 06:46 Dose: 150 mg Documented by: Calcium Carbonate (Calcium (Elemental) 500 Mg Tablet) 500 mg PO DAILY@0800 [facility] Last Admin: 09/18/20 08:54 Dose: 500 mg Documented by: Enoxaparin Sodium (Enoxaparin 40 Mg/0.4 Ml Syringe) 40 mg SC DAILY [facility] Last Admin: 09/18/20 06:46 Dose: 40 mg Documented by: Gabapentin (Gabapentin 600 Mg Tablet) 600 mg PO TIDCM [facility] Last Admin: 09/18/20 11:52 Dose: 600 mg Documented by: Heparin Sodium (Beef Lung) (Heparin Pf Lock 10 Units/Ml 50 Units/5 Ml Syringe) 50 units IV UD PRN PRN Reason: PICC Line Heparin Flush Last Admin: 09/06/20 06:46 Dose: 50 units Documented by: Vancomycin HCl 2,000 mg/ (Sodium Chloride) 540 mls @ 250 mls/hr IV Q12H [facility] Stop: 10/10/20 10:59 Last Infusion: 09/18/20 13:56 Dose: Infused Documented by: Sodium Chloride () 250 mls @ 15 mls/hr IV .[id number] PRN PRN Reason: Saline Flush Last Infusion: 09/17/20 18:19 Dose: 0 mls/hr Documented by: Sodium Chloride () 250 mls @ 15 mls/hr IV .[id number] PRN PRN Reason: Additional IVPB Infusion Ampicillin Sodium/Sulbactam (Sodium 3 gm/ Sodium Chloride) 112 mls @ 150 mls/hr IV Q8 [facility] Stop: 10/10/20 12:00 Last Admin: 09/18/20 13:56 Dose: 150 mls/hr Documented by: Insulin Human Regular (Insulin U-500 Pen) 110 units SC BREAKFAST [facility] Last Admin: 09/18/20 08:54 Dose: 110 units Documented by: Insulin Human Regular (Insulin U-500 Pen) 110 units SC DINNER [facility] Last Admin: 09/17/20 17:13 Dose: 110 units Documented by: Insulin Human Regular (Insulin U-500 Pen) 110 units SC LUNCH [facility] Last Admin: 09/18/20 11:52 Dose: 110 units Documented by: L-Arginine/L-Glutamine/Calcium HMB (Brett (Unflavored) Packet) 1 packet PO BIDCM [facility] Last Admin: 09/18/20 08:54 Dose: Not Given Documented by: Lisinopril (Lisinopril 40 Mg Tablet) 40 mg PO DAILY [facility] Last Admin: 09/18/20 06:46 Dose: 40 mg Documented by: Magnesium Hydroxide (Magnesium Hydroxide 30 Ml Udc) 30 ml PO DAILY PRN PRN Reason: Constipation Multivitamins (Multivitamins,Therapeutic Tablet) 1 tablet PO DAILY@0800 [facility] Last Admin: 09/18/20 08:54 Dose: 1 tablet Documented by: Nicotine (Nicotine 21 Mg Patch) 21 mg TD DAILY [facility] Last Admin: 09/18/20 06:46 Dose: 21 mg Documented by: Polyethylene Glycol (Polyethylene Glycol 3350 17 Gm Packet) 17 gm PO DAILY [facility] Last Admin: 09/18/20 06:49 Dose: Not Given Documented by: Povidone Iodine (Povidone-Iodine Swabstick) 1 packet TOPICAL 1000 [facility]; Protocol Last Admin: 09/17/20 10:30 Dose: 1 packet Documented by: Senna/Docusate Sodium (Senna/Docusate Sodium 1 Tablet) 1 tablet PO BID [facility] Last Admin: 09/18/20 06:49 Dose: Not Given Documented by: Sodium Chloride (0.9% Saline Lock 10 Ml Syringe) 10 - 40 ml IV UD PRN PRN Reason: Open End PICC Flush Last Admin: 09/18/20 11:11 Dose: 20 ml Documented by: Sodium Chloride (0.9 % Nacl (Sterile) Posiflush 10 Ml) 10 - 40 ml IV UD PRN PRN Reason: Port access or dressing change Tamsulosin HCl (Tamsulosin Hcl 0.4 Mg Capsule) 0.4 mg PO DAILY@1730 [facility] Last Admin: 09/17/20 17:13 Dose: 0.4 mg Documented by: Medical Necessity - Tobacco Use Smoking Status: Heavy Smoker (>10/day) Tobacco Use: Cigarettes Assessment/Plan All Active Problems (Last Updated 08/28/20 @ 17:[address] Irene Claudio, DPM) Debility (Acute) Cellulitis of right lower limb (Acute) Osteomyelitis of right foot (Acute) Osteomyelitis right 5th metatarsal s/p 5th ray resection right foot 08/29/[address] Powell with healing ulcer Left foot ulcer down to subcutaneous tissue (causey grade 1, no infection) Transmetatarsal amputation left foot Uncontrolled diabetes with neuropathy Other comorbidities include tobacco abuse, obesity, sleep apnea, hyperlipidemia, hypertension, prior stage II kidney disease, BPH Patient seen and examined. He remains afebrile with vital signs stable. Excisional debridement was performed to right foot and leg and left foot utilizing a 5mm curette after verbal consent was obtained to remove devitalized subcutaneous tissue, fibrous tissue, biofilm and slough. Pressure was applied to maintain hemostasis and he tolerated this well. The wound to right lateral forefoot measures 1 cm x 1.1 cm x 0.2 cm post debridement and pre debridement measured 0.9 x1.0 x 0.1cm, Plantar medial left granular base ulcer measures 1.2 x 0.9 x 0.2 cm post debridement and predebridement 1.1 x 1.0 x 0.1 cm. There are also some excoriations and in a cluster of granular base ulcers to the right anterior leg with no deep tissue exposed or infection. Cleansed with normal saline soln, applied Aquacel Ag, gauze, kerlix and guerrero. To change daily. To continue to offload. No anesthesia needed due to neuropathy. Continue with dressing changes Continue with antibiotic therapy per ID service. He is currently being treated for right foot osteomyelitis. His recent culture growth includes mrsa, enterococcus, klebs, strep mitis/oralis, and diphtheroids. The plan is for 6 weeks iv vanc/unasyn with stop date 10/10/20. Serial labs will be followed. PVRs from April 2020 were reviewed showing an KANDI of 0.94 which should show adequate blood flow for healing after surgery. No weightbearing to ulcer sites. Patient is to limit weightbearing as much as possible, but if have to focus on heel weightbearing in surgical shoes with ulcers offloaded. Podiatry will continue to follow weekly, call sooner if needed To follow up at the wound healing center after discharge. I answered his questions.
[2020-09-18 14:40] VITALS: BP 152/55; PULSE 78; RESP 16; TEMP 36.7; O2SAT 94
[2020-09-18 16:21] LABS: Bedside Glucose 170 mg/dL (70-110)
[2020-09-18] MEDS: Senna/Docusate Sodium 1 Tablet PO (18:03)
[2020-09-18] MEDS: Juven (unflavored) Packet 1 PACKET PO (18:03)
[2020-09-18] MEDS: Tamsulosin HCl 0.4 MG Capsule PO (18:03)
[2020-09-18 21:26] LABS: Bedside Glucose 220 mg/dL (70-110)
[2020-09-19 06:07] LABS: QNTFERON TB Mitogen Value > 10.00 IU/mL (.); QNTFERON TB Nil Value 0.05 IU/mL (.); QNTFERON TB1+ Ag Value 0.04 IU/mL (.); QNTFERON TB2+ Ag Value 0.04 IU/mL (.)
[2020-09-19 06:29] VITALS: BP 139/72; PULSE 90; RESP 16; TEMP 36.6; O2SAT 98
[2020-09-19 06:30] LABS: Bedside Glucose 107 mg/dL (70-110)
[2020-09-19] MEDS: buPROPion (SR) 150 MG Tablet.SA PO ×2 (06:30→17:40)
[2020-09-19] MEDS: Lisinopril 40 MG Tablet PO (06:30)
[2020-09-19] MEDS: Atorvastatin Calcium 40 MG Tablet PO (06:30)
[2020-09-19] MEDS: Enoxaparin 40 MG/0.4 ML Syringe SC (06:31)
[2020-09-19] MEDS: 0.9% Saline Lock 10 ML Syringe IV ×2 (06:32→11:23)
[2020-09-19] MEDS: Aspirin E.C. 81 MG Tablet PO (07:31)
[2020-09-19] MEDS: Gabapentin 600 MG Tablet PO ×3 (07:31→17:40)
[2020-09-19] MEDS: Calcium (Elemental) 500 MG Tablet PO (07:31)
[2020-09-19] MEDS: Multivitamins,Therapeutic Tablet 1 TABLET PO (07:31)
[2020-09-19 11:01] LABS: Bedside Glucose 205 mg/dL (70-110)
[2020-09-19 11:13] LABS: Vancomycin, Trough Level 12.2 ug/mL (5.0-15.0)
[2020-09-19 11:37] LABS: QNTIFERON TB Positive Criteria Negative (Negative)
[2020-09-19 13:35] VITALS: BP 173/90; PULSE 68; RESP 17; TEMP 36.1; O2SAT 94
--- NOTE | 2020-09-19 13:58 | CHAPLAIN ---
Type of Pastoral Visit ___ Initial Visit _x__ Follow-up Visit ___ On-call Visit ___ General Patient Visit ___ Spiritual Assessment ___ Family Conference ___ Bereavement ___ Rapid Response ___ Code Blue ___ Other (describe below) Pastoral Care Referral From _x__ Patient ___ Family ___ Nurse ___ Physician ___ Ore Storage Drier ___ Testing And Regulating Chief ___ Other (describe below) Sacrament/Intervention _x__ Active listening ___ Anointing ___ Religious ___ Bereavement ___ Communion ___ Makeda exploration ___ _x__ Life review _x__ Prayer ___ Reconciliation ___ Sacrament of Sick ___ Supportive presence ___ Wedding ___ Other (describe below) Pastoral Comments
[2020-09-19] MEDS: Povidone-Iodine Swabstick 1 PACKET TOPICAL (14:06)
[2020-09-19 14:24] VITALS: PULSE 73; RESP 18; O2SAT 97
--- NOTE | 2020-09-19 14:47 | NURSING ---
Resident and family notified of COVID status on the unit.
--- NOTE | 2020-09-19 15:07 | PCM.RX.CS ---
Consult Pharmacy has been consulted to manage selected antiobiotic: Vancomycin Type of Consult: Follow-up Suspected Infection: Osteomyelitis Labs: Sodium 139 mmol/L (136-145) 09/16/20 06:04 Potassium 3.9 mmol/L (3.5-5.1) 09/16/20 06:04 Chloride 109 mmol/L (98-107) H 09/16/20 06:04 Carbon Dioxide 26.0 mmol/L (21.0-32.0) 09/16/20 06:04 Anion Gap 4 (5-15) L 09/16/20 06:04 BUN 10 mg/dL (7-18) 09/16/20 06:04 Creatinine 0.73 mg/dL (0.70-1.30) 09/16/20 06:04 Est GFR (MDRD) Af Amer 139 mL/min (>60) 09/16/20 06:04 Est GFR (MDRD) Non-Af 115 mL/min (>60) 09/16/20 06:04 BUN/Creatinine Ratio 13.7 RATIO (10-20) 09/16/20 06:04 Glucose 113 mg/dL (74-106) H 09/16/20 06:04 Vancomycin Trough 12.2 ug/mL (5.0-15.0) 09/19/20 10:26 Microbiology: Microbiology 09/18/20 12:20 Nasal Secretion SARS-CoV-2 Antigen (Rapid) - Final 09/11/20 14:00 Nasal Secretion SARS-CoV-2 Antigen (Rapid) - Final Goal Trough: 15-20 mcg/mL Pharmacy Plan for Drug Dosing: VANCOMYCIN LEVEL RECEIVED Current Vancomycin Dose: 2000MG Q12h (11,23) Number of Doses Received: Vancomycin Level: 12.2 Hours Since Last Dose: Renal Function: 0.73 Renal Function Trend: stable Lab/Micro: Vancomycin Plan/Comments: talked with dr. sprague. he is happy with the trough level being around 12 since the pt is on 2grams q12h. recommend keeping pt on same dose and checking level in 7 days Pending Level: 09/26/2020 Pharmacy Service will continue to monitor and adjust dosing as required. Follow-Up Labs: Trough Vancomycin - 09/26/20 @ 1030
[2020-09-19 17:05] LABS: Bedside Glucose 185 mg/dL (70-110)
[2020-09-19] MEDS: Tamsulosin HCl 0.4 MG Capsule PO (17:40)
[2020-09-19] MEDS: Juven (unflavored) Packet 1 PACKET PO (17:41)
[2020-09-19 21:15] LABS: Bedside Glucose 143 mg/dL (70-110)
[2020-09-20] MEDS: Atorvastatin Calcium 40 MG Tablet PO (05:54)
[2020-09-20] MEDS: Lisinopril 40 MG Tablet PO (05:54)
[2020-09-20] MEDS: buPROPion (SR) 150 MG Tablet.SA PO ×2 (05:55→17:39)
[2020-09-20] MEDS: Enoxaparin 40 MG/0.4 ML Syringe SC (05:56)
[2020-09-20 06:05] VITALS: BP 144/80; PULSE 87; RESP 20; TEMP 36.5; O2SAT 93
[2020-09-20 06:25] LABS: Bedside Glucose 102 mg/dL (70-110)
[2020-09-20] MEDS: Calcium (Elemental) 500 MG Tablet PO (08:05)
[2020-09-20] MEDS: Multivitamins,Therapeutic Tablet 1 TABLET PO (08:05)
[2020-09-20] MEDS: Aspirin E.C. 81 MG Tablet PO (08:05)
[2020-09-20] MEDS: Gabapentin 600 MG Tablet PO ×3 (08:05→17:34)
[2020-09-20 10:00] VITALS: PULSE 63; RESP 18; O2SAT 93
[2020-09-20] MEDS: 0.9% Saline Lock 10 ML Syringe IV ×2 (10:20→21:12)
[2020-09-20 11:15] LABS: Bedside Glucose 148 mg/dL (70-110)
[2020-09-20] MEDS: Povidone-Iodine Swabstick 1 PACKET TOPICAL ×2 (13:36→13:38)
[2020-09-20 14:09] VITALS: BP 156/88; PULSE 81; RESP 18; TEMP 36.2; O2SAT 94
--- NOTE | 2020-09-20 16:24 | PN.ID_ITS ---
Patient Problems: Active and Suspected Problems (Last Updated 08/28/20 @ 17:[address] Irene Claudio, [facility]) Debility (Acute) Peripheral vascular disease (Suspected) Cellulitis of right lower limb (Acute) Osteomyelitis of right foot (Acute) Subjective: Feeling ok, no fever, no n/v/d - Physical Exam Vitals/I&O's: Vital Signs Temp Pulse Resp BP Pulse Ox 97.1 F L 81 18 156/88 H 94 09/20/20 14:09 09/20/20 14:09 09/20/20 14:09 09/20/20 14:09 09/20/20 14:09 Oxygen Delivery Method Room Air Weight: 165.561 kg Body Mass Index (BMI) 47.2 Finger Stick Blood Glucose 137 Intake and Output for Last 24 Hours 09/18/20 09/19/20 09/20/20 23:59 23:59 23:59 Intake Total 2916 / 2916 2416 / 2416 2077.5 / 2077.5 Output Total 950 / 950 350 / 350 Balance 2916 / 2916 1466 / 1466 1727.5 / 1727.5 General: Alert, Cooperative, No apparent distress Lungs: Clear to auscultation, Normal air movement Cardiovascular: Regular rate, Regular Rhythm Abdomen: Soft, Non Tender, Non-Distended Skin: Ulcer/ Wound - foot wrapped Microbiology Past 72 Hours 09/18/20 12:20 Nasal Secretion SARS-CoV-2 Antigen (Rapid) - Final Laboratory Results 09/19/20 16:52: POC Glucose 185 H 09/19/20 21:09: POC Glucose 143 H 09/20/20 06:18: POC Glucose 102 09/20/20 11:09: POC Glucose 148 H Current Medications Acetaminophen (Acetaminophen 500 Mg Tablet) 1,000 mg PO Q6H PRN PRN Reason: Pain Score 1-10 Last Admin: 09/17/20 01:21 Dose: 1,000 mg Documented by: Alteplase, Recombinant (Alteplase 2 Mg/2 Ml Vial) 2 mg IV DAILY PRN PRN PRN Reason: clotted central line port Aspirin (Aspirin E.C. 81 Mg Tablet) 81 mg PO DAILY@0800 [facility] Last Admin: 09/20/20 08:05 Dose: 81 mg Documented by: Atorvastatin Calcium (Atorvastatin Calcium 40 Mg Tablet) 40 mg PO DAILY [facility] Last Admin: 09/20/20 05:54 Dose: 40 mg Documented by: Bisacodyl (Bisacodyl 10 Mg Suppository) 10 mg RECTAL DAILY PRN PRN Reason: Constipation Bupropion HCl (Bupropion (Sr) 150 Mg Tablet.Sa) 150 mg PO BID [facility] Last Admin: 09/20/20 05:55 Dose: 150 mg Documented by: Calcium Carbonate (Calcium (Elemental) 500 Mg Tablet) 500 mg PO DAILY@0800 [facility] Last Admin: 09/20/20 08:05 Dose: 500 mg Documented by: Enoxaparin Sodium (Enoxaparin 40 Mg/0.4 Ml Syringe) 40 mg SC DAILY [facility] Last Admin: 09/20/20 05:56 Dose: 40 mg Documented by: Gabapentin (Gabapentin 600 Mg Tablet) 600 mg PO TIDCM [facility] Last Admin: 09/20/20 12:13 Dose: 600 mg Documented by: Heparin Sodium (Beef Lung) (Heparin Pf Lock 10 Units/Ml 50 Units/5 Ml Syringe) 50 units IV UD PRN PRN Reason: PICC Line Heparin Flush Last Admin: 09/06/20 06:46 Dose: 50 units Documented by: Vancomycin HCl 2,000 mg/ (Sodium Chloride) 540 mls @ 250 mls/hr IV Q12H [facility] Stop: 10/10/20 10:59 Last Admin: 09/20/20 11:23 Dose: 250 mls/hr Documented by: Sodium Chloride () 250 mls @ 15 mls/hr IV .[id number] PRN PRN Reason: Saline Flush Last Infusion: 09/20/20 01:00 Dose: 0 mls/hr Documented by: Sodium Chloride () 250 mls @ 15 mls/hr IV .[id number] PRN PRN Reason: Additional IVPB Infusion Ampicillin Sodium/Sulbactam (Sodium 3 gm/ Sodium Chloride) 112 mls @ 150 mls/hr IV Q8 [facility] Stop: 10/10/20 12:00 Last Admin: 09/20/20 15:37 Dose: 150 mls/hr Documented by: Insulin Human Regular (Insulin U-500 Pen) 110 units SC BREAKFAST [facility] Last Admin: 09/20/20 08:05 Dose: 110 units Documented by: Insulin Human Regular (Insulin U-500 Pen) 110 units SC DINNER [facility] Last Admin: 09/19/20 17:39 Dose: 110 units Documented by: Insulin Human Regular (Insulin U-500 Pen) 110 units SC LUNCH [facility] Last Admin: 09/20/20 12:13 Dose: 110 units Documented by: L-Arginine/L-Glutamine/Calcium HMB (Brett (Unflavored) Packet) 1 packet PO BIDCM [facility] Last Admin: 09/20/20 08:06 Dose: Not Given Documented by: Lisinopril (Lisinopril 40 Mg Tablet) 40 mg PO DAILY [facility] Last Admin: 09/20/20 05:54 Dose: 40 mg Documented by: Magnesium Hydroxide (Magnesium Hydroxide 30 Ml Udc) 30 ml PO DAILY PRN PRN Reason: Constipation Multivitamins (Multivitamins,Therapeutic Tablet) 1 tablet PO DAILY@0800 [facility] Last Admin: 09/20/20 08:05 Dose: 1 tablet Documented by: Nicotine (Nicotine 21 Mg Patch) 21 mg TD DAILY [facility] Last Admin: 09/20/20 05:56 Dose: 21 mg Documented by: Polyethylene Glycol (Polyethylene Glycol 3350 17 Gm Packet) 17 gm PO DAILY [facility] Last Admin: 09/20/20 05:55 Dose: Not Given Documented by: Povidone Iodine (Povidone-Iodine Swabstick) 1 packet TOPICAL 1000 [facility]; Protocol Last Admin: 09/20/20 13:36 Dose: 1 packet Documented by: Senna/Docusate Sodium (Senna/Docusate Sodium 1 Tablet) 1 tablet PO BID [facility] Last Admin: 09/20/20 05:55 Dose: Not Given Documented by: Sodium Chloride (0.9% Saline Lock 10 Ml Syringe) 10 - 40 ml IV UD PRN PRN Reason: Open End PICC Flush Last Admin: 09/20/20 10:20 Dose: 20 ml Documented by: Sodium Chloride (0.9 % Nacl (Sterile) Posiflush 10 Ml) 10 - 40 ml IV UD PRN PRN Reason: Port access or dressing change Tamsulosin HCl (Tamsulosin Hcl 0.4 Mg Capsule) 0.4 mg PO DAILY@1730 [facility] Last Admin: 09/19/20 17:40 Dose: 0.4 mg Documented by: Medical Necessity - Tobacco Use Smoking Status: Heavy Smoker (>10/day) Tobacco Use: Cigarettes Route of nutrition/ use of supplements: [] Nutritional Intake: [] IV Site: [] Dyer Catheter: [] - Assessment/Plan Antibiotics: [] Assessment/Plan: [] Active and Suspected Problems (Last Updated 08/28/20 @ 17:[address] Irene Claudio, [facility]) Debility (Acute) Peripheral vascular disease (Suspected) Cellulitis of right lower limb (Acute) Osteomyelitis of right foot (Acute) R foot osteo with uncontrolled DM - recent cxs with mrsa, enterococcus, klebs, strep mitis/oralis, and diphtheroids. OR 08/[address] Powell. Plan at this point will be 6 weeks iv vanc/unasyn, stop date 10/10/20, weekly bmp, cbc, esr, LFT, and vanc trough. Quantiferon was neg, low suspicion for latent TB. Will follow
[2020-09-20 16:41] LABS: Bedside Glucose 156 mg/dL (70-110)
[2020-09-20] MEDS: Alteplase 2 MG/2 ML Vial IV (17:27)
[2020-09-20] MEDS: Tamsulosin HCl 0.4 MG Capsule PO (17:34)
[2020-09-20 21:35] LABS: Bedside Glucose 168 mg/dL (70-110)
[2020-09-21 06:28] VITALS: BP 132/50; PULSE 94; RESP 18; TEMP 37; O2SAT 95
[2020-09-21] MEDS: Atorvastatin Calcium 40 MG Tablet PO (06:29)
[2020-09-21] MEDS: Enoxaparin 40 MG/0.4 ML Syringe SC (06:29)
[2020-09-21] MEDS: Gabapentin 600 MG Tablet PO ×3 (06:29→17:45)
[2020-09-21 06:30] LABS: Bedside Glucose 176 mg/dL (70-110)
[2020-09-21] MEDS: Lisinopril 40 MG Tablet PO (06:30)
[2020-09-21] MEDS: buPROPion (SR) 150 MG Tablet.SA PO ×2 (06:30→17:46)
[2020-09-21] MEDS: Multivitamins,Therapeutic Tablet 1 TABLET PO (08:27)
[2020-09-21] MEDS: Calcium (Elemental) 500 MG Tablet PO (08:27)
[2020-09-21] MEDS: Aspirin E.C. 81 MG Tablet PO (08:27)
[2020-09-21 10:00] VITALS: PULSE 76; RESP 18; O2SAT 96
[2020-09-21 11:16] LABS: Bedside Glucose 200 mg/dL (70-110)
[2020-09-21 15:40] VITALS: BP 162/59; PULSE 78; RESP 18; TEMP 36.3; O2SAT 94
[2020-09-21 16:16] LABS: Bedside Glucose 253 mg/dL (70-110)
[2020-09-21] MEDS: 0.9% Saline Lock 10 ML Syringe IV ×2 (16:28→21:52)
[2020-09-21] MEDS: Tamsulosin HCl 0.4 MG Capsule PO (17:45)
[2020-09-21 21:31] LABS: Bedside Glucose 186 mg/dL (70-110)
[2020-09-22 05:50] VITALS: BP 146/79; PULSE 80; RESP 16; TEMP 36.2; O2SAT 93
[2020-09-22] MEDS: Enoxaparin 40 MG/0.4 ML Syringe SC (05:51)
[2020-09-22] MEDS: Lisinopril 40 MG Tablet PO (05:51)
[2020-09-22] MEDS: Gabapentin 600 MG Tablet PO ×3 (05:51→17:43)
[2020-09-22] MEDS: Atorvastatin Calcium 40 MG Tablet PO (05:52)
[2020-09-22] MEDS: buPROPion (SR) 150 MG Tablet.SA PO ×2 (05:52→17:43)
[2020-09-22] MEDS: 0.9% Saline Lock 10 ML Syringe IV ×4 (05:55→21:34)
[2020-09-22 06:11] LABS: Bedside Glucose 136 mg/dL (70-110)
[2020-09-22] MEDS: Calcium (Elemental) 500 MG Tablet PO (07:59)
[2020-09-22] MEDS: Aspirin E.C. 81 MG Tablet PO (07:59)
[2020-09-22] MEDS: Multivitamins,Therapeutic Tablet 1 TABLET PO (07:59)
--- NOTE | 2020-09-22 08:02 | NURSING ---
satish patch verified to right shoulder
[2020-09-22 10:56] LABS: Bedside Glucose 203 mg/dL (70-110)
[2020-09-22 13:44] VITALS: BP 153/81; PULSE 81; RESP 18; TEMP 36.3; O2SAT 94
[2020-09-22 16:26] LABS: Bedside Glucose 196 mg/dL (70-110)
[2020-09-22] MEDS: Tamsulosin HCl 0.4 MG Capsule PO (17:43)
[2020-09-22 21:30] LABS: Bedside Glucose 197 mg/dL (70-110)
[2020-09-22] MEDS: Povidone-Iodine Swabstick 1 PACKET TOPICAL (21:34)
[2020-09-23 06:19] VITALS: BP 141/72; PULSE 77; RESP 18; TEMP 36.6; O2SAT 95
[2020-09-23] MEDS: Enoxaparin 40 MG/0.4 ML Syringe SC (06:21)
[2020-09-23] MEDS: buPROPion (SR) 150 MG Tablet.SA PO ×2 (06:22→18:00)
[2020-09-23] MEDS: Lisinopril 40 MG Tablet PO (06:23)
[2020-09-23] MEDS: Atorvastatin Calcium 40 MG Tablet PO (06:23)
[2020-09-23] MEDS: 0.9% Saline Lock 10 ML Syringe IV ×4 (06:24→14:27)
[2020-09-23 06:36] LABS: Bedside Glucose 139 mg/dL (70-110)
[2020-09-23 08:05] LABS: Absolute Lymphocyte Count 1.84 X10^3/uL (0.83-4.51); Absolute Neutrophil Count 6.2 X10^3/uL (2.0-7.7); Basophil# 0.12 X10^3/uL; Basophil% 1.3 % (0-1); Eosinophil# 0.41 X10^3/uL; Eosinophils% 4.3 % (0-5); Hematocrit 41.4 % (40-54); Hemoglobin 12.8 g/dL (13.0-16.5); Lymphocyte # 1.84 X10^3/ul (4.0); Lymphocyte % 19.4 % (19-41); Mean Corp Hgb Conc 30.9 g/dL (32-36); Mean Corpuscular Hgb 27.8 pg (27.0-32.0); Mean Platelet Vol. 10.9 fl (6.2-12.0); Monocyte# 0.78 X10^3/uL; Monocyte% 8.2 % (0-10); NRBC Flagged by Analyzer 0 % (0-5); Neutrophil # 6.22 X10^3/uL (2.7-7.7); Neutrophil % 65.5 % (47-70); Platelet Count 197 K/mm3 (150-450); RBC Distribution Width CV 14.5 % (11.6-14.6); RBC Distribution Width SD 47.5 fl (35.1-43.9); White Blood Count 9.5 K/mm3 (4.4-11.0)
[2020-09-23 08:15] LABS: Erythrocyte Sedimentation Rate 82 mm/hr (0-20)
[2020-09-23] MEDS: Gabapentin 600 MG Tablet PO ×3 (08:27→17:59)
[2020-09-23] MEDS: Multivitamins,Therapeutic Tablet 1 TABLET PO (08:28)
[2020-09-23] MEDS: Calcium (Elemental) 500 MG Tablet PO (08:28)
[2020-09-23] MEDS: Aspirin E.C. 81 MG Tablet PO (08:28)
[2020-09-23 08:54] LABS: AST(SGOT) 19 U/L (15-37); Alanine Aminotransfer ALT/SGPT 24 U/L (16-61); Albumin, Serum 2.8 g/dL (3.2-5.0); Alkaline Phosphatase 74 U/L (45-117); Anion Gap 5 (5-15); BUN 11 mg/dL (7-18); BUN/Creat Ratio 14.8 RATIO (10-20); Bilirubin, Direct 0.09 mg/dL (0.00-0.30); Calcium,Total 8.3 mg/dL (8.5-10.1); Chloride 109 mmol/L (98-107); Creatinine, Serum 0.74 mg/dL (0.70-1.30); EST Glomerular Filtration Rate 112 mL/min (>60); Est Glom Filt Rate - Afr Amer 136 mL/min (>60); Estimated Creatinine Clearance 117.25 ml/min; Globulin 4.7 g/dL (2.2-4.2); Glucose 135 mg/dL (74-106); Potassium 4.1 mmol/L (3.5-5.1); Protein, Total 7.5 g/dL (6.4-8.2); Sodium Level 138 mmol/L (136-145)
[2020-09-23 10:20] VITALS: PULSE 74; RESP 18; O2SAT 96
--- NOTE | 2020-09-23 10:39 | NURSING ---
this nurse set pt up for shower and wrapped pt legs up in trash bags to protect feet/dressing and wrapped left arm to cover picc AREA.
[2020-09-23 10:56] LABS: Bedside Glucose 138 mg/dL (70-110)
[2020-09-23] MEDS: Povidone-Iodine Swabstick 1 PACKET TOPICAL (13:43)
[2020-09-23 13:45] VITALS: BP 153/66; PULSE 97; RESP 20; TEMP 36.8; O2SAT 94
--- NOTE | 2020-09-23 14:20 | NURSING ---
PT STATED HE UPDATES HIS FAMILY
[2020-09-23 16:50] LABS: Bedside Glucose 142 mg/dL (70-110)
[2020-09-23] MEDS: Tamsulosin HCl 0.4 MG Capsule PO (17:59)
[2020-09-23 21:10] LABS: Bedside Glucose 142 mg/dL (70-110)
[2020-09-24 05:00] VITALS: BP 138/63; PULSE 67; RESP 18; TEMP 36.4; O2SAT 94
[2020-09-24] MEDS: Enoxaparin 40 MG/0.4 ML Syringe SC (05:57)
[2020-09-24] MEDS: Atorvastatin Calcium 40 MG Tablet PO (05:57)
[2020-09-24] MEDS: Lisinopril 40 MG Tablet PO (05:57)
[2020-09-24] MEDS: buPROPion (SR) 150 MG Tablet.SA PO ×2 (05:57→17:28)
[2020-09-24 06:16] LABS: Bedside Glucose 159 mg/dL (70-110)
--- NOTE | 2020-09-24 07:29 | NURSING ---
at hs pt was very agitated when IV vanc was running. IV was going off d/t upstream occlusion before atb was fully infused. This nurse into room, pt yells to why dont you just turn this F off! It F keeps going off and I need unhooked to do something! This nurse educates how important to get his full dose of atb, pt refused and was upset wanting it off. unhooked pt and notified RN.
[2020-09-24] MEDS: Multivitamins,Therapeutic Tablet 1 TABLET PO (07:54)
[2020-09-24] MEDS: Gabapentin 600 MG Tablet PO ×3 (07:55→17:28)
[2020-09-24] MEDS: Calcium (Elemental) 500 MG Tablet PO (07:55)
[2020-09-24] MEDS: Aspirin E.C. 81 MG Tablet PO (07:55)
[2020-09-24] MEDS: 0.9% Saline Lock 10 ML Syringe IV ×2 (10:37→13:08)
[2020-09-24 10:56] LABS: Bedside Glucose 190 mg/dL (70-110)
--- NOTE | 2020-09-24 11:48 | NURSING ---
PT STATED HE UPDATES FAMILY.
[2020-09-24] MEDS: Acetaminophen 500 MG Tablet 1000 MG PO (13:18)
[2020-09-24 14:30] VITALS: BP 161/66; PULSE 74; RESP 20; TEMP 36.9; O2SAT 94
--- NOTE | 2020-09-24 16:01 | NURSING ---
Addendum entered by Aliya Hardy 09/25/20 02:15: during hs med pass pt had apologized for his behavior and attitude towards staff. this nurse thanked him, and continued with his dx change and medications. pt tolerated well dx change well and remained pleasant throughout the night. Original Note: THIS NURSE ENTERED PT ROOM AND ASKED PT IF I COULD VERIFIE WERE HIS NICOTINE PATCH WAS. PT YELLED WHY? THIS NURSE STATED TO MAKE SURE THAT IT WAS STILL THERE AND DIDNT FALL OFF. PT YELLED NO! WHY DO YOU HAVE TO LOOK AT IT AFTER YOU PUT IT ON THIS MORNING! THIS NURSE STATED THAT SHE WAS NOT THE NURSE THAT PUT THE PATCH ON. PT YELLED NO YOU DONT HAVE TO CHECK ON SOME THING SO STUPID LEAVE ME ALONE. THIS NURSE LEFT ROOM AND REPORTED TO RN.
[2020-09-24 16:41] LABS: Bedside Glucose 191 mg/dL (70-110)
[2020-09-24] MEDS: Tamsulosin HCl 0.4 MG Capsule PO (17:28)
[2020-09-24] MEDS: Povidone-Iodine Swabstick 1 PACKET TOPICAL (21:55)
[2020-09-24 21:56] LABS: Bedside Glucose 144 mg/dL (70-110)
[2020-09-25] MEDS: Lisinopril 40 MG Tablet PO (04:27)
[2020-09-25] MEDS: Enoxaparin 40 MG/0.4 ML Syringe SC (04:27)
[2020-09-25] MEDS: Atorvastatin Calcium 40 MG Tablet PO (04:27)
[2020-09-25] MEDS: buPROPion (SR) 150 MG Tablet.SA PO ×2 (04:27→17:42)
[2020-09-25 04:35] VITALS: BP 125/61; PULSE 83; RESP 18; TEMP 36.6; O2SAT 94
[2020-09-25 06:10] LABS: Bedside Glucose 90 mg/dL (70-110)
[2020-09-25] MEDS: Calcium (Elemental) 500 MG Tablet PO (08:28)
[2020-09-25] MEDS: Aspirin E.C. 81 MG Tablet PO (08:28)
[2020-09-25] MEDS: Multivitamins,Therapeutic Tablet 1 TABLET PO (08:28)
[2020-09-25] MEDS: Gabapentin 600 MG Tablet PO ×3 (08:28→17:41)
[2020-09-25 10:00] VITALS: PULSE 78; RESP 20; O2SAT 96
[2020-09-25] MEDS: Povidone-Iodine Swabstick 1 PACKET TOPICAL (10:50)
[2020-09-25 10:51] LABS: Bedside Glucose 111 mg/dL (70-110)
[2020-09-25] MEDS: 0.9% Saline Lock 10 ML Syringe IV ×2 (11:14→21:33)
--- NOTE | 2020-09-25 13:37 | NURSING ---
PICC dressing falling off, new tegaderm CHG applied
[2020-09-25 14:13] VITALS: BP 145/68; PULSE 78; RESP 18; TEMP 36.7; O2SAT 96
[2020-09-25 16:30] LABS: Bedside Glucose 108 mg/dL (70-110)
[2020-09-25] MEDS: Tamsulosin HCl 0.4 MG Capsule PO (17:40)
[2020-09-25 21:11] LABS: Bedside Glucose 113 mg/dL (70-110)
[2020-09-26] VITALS (7 sets, daily range): BP systolic 143–181; BP diastolic 54–80; PULSE 76–86; RESP 18; TEMP 36.4–36.7; O2SAT 94–97
--- NOTE | 2020-09-26 04:55 | NURSING ---
A loud crash came from room. Patient yelling I need help Into patient's room. Patient found on floor. Patient states that I was sitting on the side of my bed and I must have fell asleep and the next thing I know I fell on the floor. Patient was asked if he hit his head. Patient states that I just hit my chin. It is noted that patient has abrasion on his chin. Patients left leg is noted to be bleeding a bit. No new areas noted. Left leg is a little puffy but patient states My leg has been like that for awhile. Patient has no complaints of pain from fall. Neurochecks initiated. Vital signs WNL. Dr. Meyer and supervisor core drilling notified.
[2020-09-26 05:11] LABS: Bedside Glucose 102 mg/dL (70-110)
[2020-09-26] MEDS: Atorvastatin Calcium 40 MG Tablet PO (05:17)
[2020-09-26] MEDS: Enoxaparin 40 MG/0.4 ML Syringe SC (05:17)
[2020-09-26] MEDS: Lisinopril 40 MG Tablet PO (05:17)
[2020-09-26] MEDS: buPROPion (SR) 150 MG Tablet.SA PO ×2 (05:18→17:37)
[2020-09-26] MEDS: Calcium (Elemental) 500 MG Tablet PO (08:13)
[2020-09-26] MEDS: Aspirin E.C. 81 MG Tablet PO (08:13)
[2020-09-26] MEDS: Multivitamins,Therapeutic Tablet 1 TABLET PO (08:13)
[2020-09-26] MEDS: Gabapentin 600 MG Tablet PO ×3 (08:13→17:37)
--- NOTE | 2020-09-26 09:06 | PCM.TCUNOT ---
Subjective: Resident seen and examined today for regulatory visit. He had swelling, redness, left lower extremity, Doppler ultrasound left lower extremity ordered, but pending. He fell asleep and fell this AM, hit his chin, Neuro checks okay. He has no other complaints. Vitals/I&O's: Vital Signs Temp Pulse Resp BP Pulse Ox 98.1 F 78 18 181/60 H 96 09/26/20 04:55 09/26/20 06:58 09/26/20 04:55 09/26/20 06:58 09/26/20 04:55 Oxygen Delivery Method Room Air Weight: 165.561 kg Body Mass Index (BMI) 47.2 Finger Stick Blood Glucose 137 Intake and Output for Last 24 Hours 09/24/20 09/25/20 09/26/20 23:59 23:59 23:59 Intake Total 3336 / 3336 2848 / 2848 1291 / 1291 Balance 3336 / 3336 2848 / 2848 1291 / 1291 Microbiology Past 72 Hours 09/25/20 11:30 Nasal Secretion SARS-CoV-2 Antigen (Rapid) - Final Laboratory Results 09/25/20 10:42: POC Glucose 111 H 09/25/20 16:27: POC Glucose 108 09/25/20 21:03: POC Glucose 113 H 09/26/20 05:02: POC Glucose 102 Past Medical History Past Medical History (Chronic Problems): Chronic Problems (Last Updated 08/28/20 @ 17:[address] 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) Benign essential hypertension (Chronic) Mixed hyperlipidemia (Chronic) Chronic ulcer of right foot with fat layer exposed (Chronic) Obesity (Chronic) Tobacco abuse (Chronic) Osteomyelitis, unspecified (Chronic) Chronic ulcer of left foot with fat layer exposed (Chronic) Osteomyelitis of left foot (Chronic) Diabetic ulcer of left foot (Chronic) Other specified peripheral vascular diseases (Chronic) Delayed wound healing (Chronic) Difficulty in walking, not elsewhere classified (Chronic) 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) Tobacco abuse counseling (Chronic) MRSA (methicillin resistant staph aureus) culture positive (Chronic) Ulcer of left foot with muscle involvement without evidence of necrosis (Chronic) Ulcer of left foot with necrosis of muscle (Chronic) History of transmetatarsal amputation of left foot (Chronic) Ulcer of right foot with fat layer exposed (Chronic) Ulcer of right lower extremity with fat layer exposed (Chronic) Chronic ulcer of right foot with necrosis of muscle (Chronic) no necrosis clarified Medical History: Medical History (Last Updated 08/28/20 @ 17:[address] Irene Claudio, DPM) BPH (benign prostatic hyperplasia) N40.0 Erectile dysfunction N52.9 Hyperlipidemia E78.5 Hypokalemia E87.6 Neuropathic pain M79.2 Obesity E66.9 Sleep apnea G47.30 Tobacco abuse Z72.0 Type 2 diabetes mellitus E11.9 HTN (hypertension) I10 Allergies Sulfa (Sulfonamide Antibiotics) Allergy (Verified 07/28/20 14:16) Rash Home Medications: Ambulatory Orders Medication Instructions Recorded Calcium Carbonate [Calcium] 500 mg PO DAILY 06/23/17 Multivitamin [Multiple Vitamins] 1 ea PO DAILY 06/23/17 atorvastatin 40 mg tablet 40 mg PO DAILY 10/18/19 bupropion HCl 150 mg 24 hr tablet, 150 mg PO BID tab 10/18/19 extended release tamsulosin 0.4 mg capsule 0.4 mg PO DAILY@1730 cap 10/18/19 gabapentin 300 mg capsule 600 mg PO TIDCM cap 04/24/20 aspirin 81 mg tablet,delayed 81 mg PO DAILY tab 07/28/20 release Insulin U-500 [Humulin R U-500 140 units SC DINNER 08/28/20 ([facility] [place])] Insulin U-500 [Humulin R U-500 150 units SC BREAKFAST 08/28/20 ([facility] [place])] Insulin U-500 [Humulin R U-500 160 units SC LUNCH 08/28/20 ([facility] [place])] Acetaminophen [Tylenol Tablet] 650 mg PO Q8H PRN PRN tab 09/01/20 Blood Sugar Diagnostic [Onetouch See Rx Instructions .ROUTE 09/01/20 Verio Test Strip] .MEDSUPPLY Enoxaparin [Lovenox] 40 mg SC DAILY 09/01/20 Ertapenem Sodium [Ertapenem] 1 gm IV DAILY 09/01/20 Brett (unflavored) [Brett Packet] 1 packet PO BIDCM 09/01/20 Lancets See Rx Instructions .ROUTE 09/01/20 .MEDSUPPLY Lisinopril 40 mg PO DAILY 09/01/20 Nicotine [Nicoderm Cq] 21 mg TD DAILY 09/01/20 Vancomycin/0.9 % Sod Chloride 2 gm IV Q12H 09/01/20 [Vanco 2 Gram/500 ml-0.9% NaCl] Surgical History: Surgical History (Last Reviewed 07/31/20 @ 11:[address] Juan Arteaga MD) History of ankle surgery Z98.890 History of deviated nasal septum Z87.09 History of hernia repair Z98.890, Z87.19 History of oral surgery Z98.890 History of transmetatarsal amputation of left foot Z89.432 History of vasectomy Z98.52 Surgical History: herniorrhaphy, - - Surgery to the right ankle for fracture, Deviated nasal septum, oral surgery, left foot transmetatarsal amputation, vasectomy. Psychiatric History: No pertinent psych hx Lives: Alone Smoking Status: Heavy Smoker (>10/day) Tobacco Use: Cigarettes Alcohol: None Drugs: None - *Family History Maternal Family History: Family History (Last Reviewed 07/31/20 @ 11:[address] Juan Arteaga MD) Father Myocardial infarction Heart disease Mother Kidney disease Diabetes Sister Asthma Breast cancer Hypertension Brother Alcoholism Melanoma History Items: Diabetes, Renal Disease - on dialysis Paternal Family History: Family History (Last Reviewed 07/31/20 @ 11:[address] Juan Arteaga MD) Father Myocardial infarction Heart disease Mother Kidney disease Diabetes Sister Asthma Breast cancer Hypertension Brother Alcoholism Melanoma History Items: Heart Disease Sibling Family History: Family History (Last Reviewed 07/31/20 @ 11:[address] Juan Arteaga MD) Father Myocardial infarction Heart disease Mother Kidney disease Diabetes Sister Asthma Breast cancer Hypertension Brother Alcoholism Melanoma History Items: Cancer - breast cancer in his sister Capacity - Capacity Assessment Tool Can the patient make a choice & communicate that choice?: Yes Can the patient understand benefits, risks and alternatives?: Yes Can the patient make a logical, rational choice?: Yes Is the choice the patient makes consistent w/ their values?: Yes Is there an impending, emergent risk to the patient?: No Does the patient have an Advance Directive?: No Is there a Surrogate Available?: No i.e. HCPOA: No i.e. close relative (spouse, child, parent, sibling)?: No Review of Systems Constitutional: Denies: Chills, Fever, Weight Change HEENT: Denies: Head Aches, Sinus Congestion, Sinus Drainage Cardiovascular: Denies: Chest Pain, Palpitations Respiratory: Denies: Cough, Shortness of breath at rest, Sputum production Gastrointestinal: Denies: Abdominal Pain, Nausea, Vomiting Genitourinary: Denies: Dysuria Musculoskeletal: Denies: Joint Pain, Joint Tenderness Skin: Denies: Rash, Wounds Neurological: Denies: Numbness, Tingling, Focal weakness Psychiatric: Denies: Anxiety, Depression, Homicidal Ideations, Suicidal Ideations Hematologic/ Lymphatic: Denies: Easy Bruising, Easy Bleeding Patient Problems: Active and Suspected Problems (Last Updated 08/28/20 @ 17:[address] Irene Claudio, [facility]) Debility (Acute) Peripheral vascular disease (Suspected) Cellulitis of right lower limb (Acute) Osteomyelitis of right foot (Acute) - Physical Exam Vitals/I&O's: Vital Signs Temp Pulse Resp BP Pulse Ox 98.1 F 78 18 181/60 H 96 09/26/20 04:55 09/26/20 06:58 09/26/20 04:55 09/26/20 06:58 09/26/20 04:55 Oxygen Delivery Method Room Air Weight: 165.561 kg Body Mass Index (BMI) 47.2 Finger Stick Blood Glucose 137 Intake and Output for Last 24 Hours 09/24/20 09/25/20 09/26/20 23:59 23:59 23:59 Intake Total 870 / 3336 2848 / 2848 1291 / 1291 Balance 333 / 3336 2848 / 2848 1291 / 1291 General: Alert, Oriented x3, Cooperative HEENT: Atraumatic, PERRLA, EOMI, Normocephalic Neck: Supple, No JVD, Negative Carotid Bruits Lungs: Clear to auscultation, Normal air movement Cardiovascular: Regular rate, No murmurs Abdomen: Bowel Sounds Present, Soft, Non Tender Extremities: Capillary Refill Less than 3 Seconds, Edema - Bilateral lower extremity edema. Right upper extremity PICC. Skin: No rashes, No breakdown Musculoskeletal: No Tenderness to Palpation of Joints or Extremities Neurological: Cranial nerves II-XII grossly intact Psych/Mental Status: Normal Affect, Appropriate Microbiology Past 72 Hours 09/25/20 11:30 Nasal Secretion SARS-CoV-2 Antigen (Rapid) - Final Laboratory Results 09/25/20 10:42: POC Glucose 111 H 09/25/20 16:27: POC Glucose 108 09/25/20 21:03: POC Glucose 113 H 09/26/20 05:02: POC Glucose 102 Current Medications Acetaminophen (Acetaminophen 500 Mg Tablet) 1,000 mg PO Q6H PRN PRN Reason: Pain Score 1-10 Last Admin: 09/24/20 13:18 Dose: 1,000 mg Documented by: Alteplase, Recombinant (Alteplase 2 Mg/2 Ml Vial) 2 mg IV DAILY PRN PRN PRN Reason: clotted central line port Last Admin: 09/20/20 17:27 Dose: 2 mg Documented by: Aspirin (Aspirin E.C. 81 Mg Tablet) 81 mg PO DAILY@0800 [facility] Last Admin: 09/26/20 08:13 Dose: 81 mg Documented by: Atorvastatin Calcium (Atorvastatin Calcium 40 Mg Tablet) 40 mg PO DAILY [facility] Last Admin: 09/26/20 05:17 Dose: 40 mg Documented by: Bisacodyl (Bisacodyl 10 Mg Suppository) 10 mg RECTAL DAILY PRN PRN Reason: Constipation Bupropion HCl (Bupropion (Sr) 150 Mg Tablet.Sa) 150 mg PO BID [facility] Last Admin: 09/26/20 05:18 Dose: 150 mg Documented by: Calcium Carbonate (Calcium (Elemental) 500 Mg Tablet) 500 mg PO DAILY@0800 [facility] Last Admin: 09/26/20 08:13 Dose: 500 mg Documented by: Enoxaparin Sodium (Enoxaparin 40 Mg/0.4 Ml Syringe) 40 mg SC DAILY [facility] Last Admin: 09/26/20 05:17 Dose: 40 mg Documented by: Gabapentin (Gabapentin 600 Mg Tablet) 600 mg PO TIDCM [facility] Last Admin: 09/26/20 08:13 Dose: 600 mg Documented by: Heparin Sodium (Beef Lung) (Heparin Pf Lock 10 Units/Ml 50 Units/5 Ml Syringe) 50 units IV UD PRN PRN Reason: PICC Line Heparin Flush Last Admin: 09/06/20 06:46 Dose: 50 units Documented by: Vancomycin HCl 2,000 mg/ (Sodium Chloride) 540 mls @ 250 mls/hr IV Q12H [facility] Stop: 10/10/20 10:59 Last Infusion: 09/26/20 01:22 Dose: Infused Documented by: Sodium Chloride () 250 mls @ 15 mls/hr IV .[id number] PRN PRN Reason: Saline Flush Last Infusion: 09/26/20 00:05 Dose: 0 mls/hr Documented by: Sodium Chloride () 250 mls @ 15 mls/hr IV .[id number] PRN PRN Reason: Additional IVPB Infusion Ampicillin Sodium/Sulbactam (Sodium 3 gm/ Sodium Chloride) 112 mls @ 150 mls/hr IV Q8 [facility] Stop: 10/10/20 12:00 Last Infusion: 09/26/20 06:00 Dose: Infused Documented by: Insulin Human Regular (Insulin U-500 Pen) 100 units SC BREAKFAST [facility] Last Admin: 09/26/20 08:13 Dose: 100 units Documented by: Insulin Human Regular (Insulin U-500 Pen) 100 units SC DINNER [facility] Insulin Human Regular (Insulin U-500 Pen) 100 units SC LUNCH [facility] L-Arginine/L-Glutamine/Calcium HMB (Brett (Unflavored) Packet) 1 packet PO BIDCM [facility] Last Admin: 09/26/20 08:11 Dose: Not Given Documented by: Lisinopril (Lisinopril 40 Mg Tablet) 40 mg PO DAILY [facility] Last Admin: 09/26/20 05:17 Dose: 40 mg Documented by: Magnesium Hydroxide (Magnesium Hydroxide 30 Ml Udc) 30 ml PO DAILY PRN PRN Reason: Constipation Multivitamins (Multivitamins,Therapeutic Tablet) 1 tablet PO DAILY@0800 [facility] Last Admin: 09/26/20 08:13 Dose: 1 tablet Documented by: Nicotine (Nicotine 21 Mg Patch) 21 mg TD DAILY [facility] Last Admin: 09/26/20 05:07 Dose: 21 mg Documented by: Polyethylene Glycol (Polyethylene Glycol 3350 17 Gm Packet) 17 gm PO DAILY [facility] Last Admin: 09/26/20 05:15 Dose: Not Given Documented by: Povidone Iodine (Povidone-Iodine Swabstick) 1 packet TOPICAL 1000 GT; Protocol Last Admin: 09/25/20 10:50 Dose: 1 packet Documented by: Senna/Docusate Sodium (Senna/Docusate Sodium 1 Tablet) 1 tablet PO BID GT Last Admin: 09/26/20 05:15 Dose: Not Given Documented by: Sodium Chloride (0.9% Saline Lock 10 Ml Syringe) 10 - 40 ml IV UD PRN PRN Reason: Open End PICC Flush Last Admin: 09/25/20 21:33 Dose: 40 ml Documented by: Sodium Chloride (0.9 % Nacl (Sterile) Posiflush 10 Ml) 10 - 40 ml IV UD PRN PRN Reason: Port access or dressing change Tamsulosin HCl (Tamsulosin Hcl 0.4 Mg Capsule) 0.4 mg PO DAILY@1730 GT Last Admin: 09/25/20 17:40 Dose: 0.4 mg Documented by: Assessment/Plan All Active Problems (Last Updated 08/28/20 @ 17:[address] Irene Claudio, DPM) Debility (Acute) Cellulitis of right lower limb (Acute) Osteomyelitis of right foot (Acute) 65 year old male with below past medical history hospitalized for right foot osteomyelitis, underwent right 5th toe amputation, right 5th metatarsal head resection 08/29/20, admitted to TCU with debility, here for rehabilitation, strengthening, intravenous antibiotics, wound care, prior to discharge home alone. Debility - PT/OT. Pain - Tylenol 1000MG Q6H PRN pain (1-10). Bowel - Miralax 17GM daily, Senna/colace 1 tablet BID, MOM 30ML daily PRN, Dulcolax 10MG MA daily PRN. Adult immunization - Administer Prevnar 13, Pneumovax 23, Fluzone as appropriate. DVT prophylaxis - Lovenox 40MG SC daily. CV prophylaxis - Aspirin 81MG daily. Hyperlipidemia - Atorvastatin 40MG QHS. 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 Calcium deficiency - Calcium 500MG daily. Right foot osteomyelitis - Unasyn 3GM IV Q8H, Vancomycin 2GM IV Q12H thru 10/10/20, Dr. Pathak, Dr. Powell. Diabetic polyneuropathy - Gabapentin 600MG TID. Diabetes Mellitus II - Humulin R U-500 100 units TID. Nutrition - Brett 1 packet BID, MVI daily. Hypertension - Lisinopril 40MG daily. Tobacco Abuse - Nicotine 21MG patch daily. BPH - Tamsulosin 0.4MG daily. Left lower extremity edema - Doppler ultrasound left lower extremity pending.
[2020-09-26] MEDS: 0.9% Saline Lock 10 ML Syringe IV ×3 (10:00→22:05)
[2020-09-26 11:06] LABS: Bedside Glucose 177 mg/dL (70-110)
[2020-09-26 11:47] LABS: Vancomycin, Trough Level 11.8 ug/mL (5.0-15.0)
--- NOTE | 2020-09-26 14:00 | PCM.RX.CS ---
Consult Pharmacy has been consulted to manage selected antiobiotic: Vancomycin Type of Consult: Follow-up Labs: Sodium 138 mmol/L (136-145) 09/23/20 07:33 Potassium 4.1 mmol/L (3.5-5.1) 09/23/20 07:33 Chloride 109 mmol/L (98-107) H 09/23/20 07:33 Carbon Dioxide 24.0 mmol/L (21.0-32.0) 09/23/20 07:33 Anion Gap 5 (5-15) 09/23/20 07:33 BUN 11 mg/dL (7-18) 09/23/20 07:33 Creatinine 0.74 mg/dL (0.70-1.30) 09/23/20 07:33 Est GFR (MDRD) Af Amer 136 mL/min (>60) 09/23/20 07:33 Est GFR (MDRD) Non-Af 112 mL/min (>60) 09/23/20 07:33 BUN/Creatinine Ratio 14.8 RATIO (10-20) 09/23/20 07:33 Glucose 135 mg/dL (74-106) H 09/23/20 07:33 Vancomycin Trough 11.8 ug/mL (5.0-15.0) 09/26/20 10:44 Microbiology: Microbiology 09/25/20 11:30 Nasal Secretion SARS-CoV-2 Antigen (Rapid) - Final 09/18/20 12:20 Nasal Secretion SARS-CoV-2 Antigen (Rapid) - Final 09/11/20 14:00 Nasal Secretion SARS-CoV-2 Antigen (Rapid) - Final Pharmacy Plan for Drug Dosing: VANCOMYCIN LEVEL RECEIVED Current Vancomycin Dose: 2g IV Q12hr Number of Doses Received: 50 doses Vancomycin Level: 11.8 Hours Since Last Dose: 12.25hr Renal Function: NNL Renal Function Trend: NNL Lab/Micro: No new Vancomycin Plan/Comments: Trough resulted in value of 11.8 (Drawn ~12.25hr from last dose). Per previous notes, Dr. Pathak aware of trough levels, ok with trough around 12, as pt already on 2g IV Q12hr. Will continue current dose and recheck a trough in 7 days. Stopdate 10/10/20 for antibiotic. Pending Level: 10/03/19 @1030 Pharmacy Service will continue to monitor and adjust dosing as required.
[2020-09-26] MEDS: Acetaminophen 500 MG Tablet 1000 MG PO (14:33)
--- NOTE | 2020-09-26 16:51 | CHAPLAIN ---
Type of Pastoral Visit ___ Initial Visit _x__ Follow-up Visit ___ On-call Visit ___ General Patient Visit ___ Spiritual Assessment ___ Family Conference ___ Bereavement ___ Rapid Response ___ Code Blue ___ Other (describe below) Pastoral Care Referral From _x__ Patient ___ Family ___ Nurse ___ Physician ___ Telephone Appointment Clerk ___ Ethics Manager ___ Other (describe below) Sacrament/Intervention _x__ Active listening ___ Anointing ___ Moravian ___ Bereavement ___ Communion ___ Makeda exploration ___ ___ Life review ___ Prayer ___ Reconciliation ___ Sacrament of Sick _x__ Supportive presence ___ Wedding ___ Other (describe below) Pastoral Comments patient was out of room and walking in the hallway; greeted pt and pt invited this web marketing intern to walk with him and visit; walked with pt to [employer] shop after he signed out and back then to his room; casual conversation; phone call from pt sister came and then left pt
[2020-09-26] MEDS: Tamsulosin HCl 0.4 MG Capsule PO (17:36)
[2020-09-26 18:31] LABS: Bedside Glucose 152 mg/dL (70-110)
[2020-09-26 21:35] LABS: Bedside Glucose 182 mg/dL (70-110)
[2020-09-26] MEDS: Povidone-Iodine Swabstick 1 PACKET TOPICAL (23:11)
--- NOTE | 2020-09-26 23:57 | NURSING ---
Addendum entered by Radha Sierra 09/27/20 00:10: Left message with bilingual social worker to talk with patient. Original Note: Patient states he would like to speak with bilingual social worker has asked about it before and hasn't heard from them yet. I communicated that I would call and leave a message let them know. Patient also said that he would like to speak with a wound nurse about his left foot. Made RN aware.
[2020-09-27] MEDS: Acetaminophen 500 MG Tablet 1000 MG PO (00:45)
[2020-09-27 05:00] VITALS: BP 135/65; PULSE 76; RESP 18; TEMP 36.7; O2SAT 94
[2020-09-27] MEDS: Lisinopril 40 MG Tablet PO (06:15)
[2020-09-27] MEDS: Atorvastatin Calcium 40 MG Tablet PO (06:15)
[2020-09-27] MEDS: Enoxaparin 40 MG/0.4 ML Syringe SC (06:15)
[2020-09-27] MEDS: buPROPion (SR) 150 MG Tablet.SA PO ×2 (06:28→18:15)
[2020-09-27] MEDS: 0.9% Saline Lock 10 ML Syringe IV ×3 (06:29→22:19)
[2020-09-27 06:30] LABS: Bedside Glucose 170 mg/dL (70-110)
[2020-09-27] MEDS: Aspirin E.C. 81 MG Tablet PO (09:20)
[2020-09-27] MEDS: Gabapentin 600 MG Tablet PO ×3 (09:20→18:15)
[2020-09-27] MEDS: Calcium (Elemental) 500 MG Tablet PO (09:20)
[2020-09-27] MEDS: Multivitamins,Therapeutic Tablet 1 TABLET PO (09:21)
[2020-09-27 11:16] LABS: Bedside Glucose 204 mg/dL (70-110)
--- NOTE | 2020-09-27 11:49 | NURSING ---
wound photo: right lateral foot
--- NOTE | 2020-09-27 11:50 | NURSING ---
wound photo: bilateral lower legs
--- NOTE | 2020-09-27 11:51 | NURSING ---
wound photo: left foot
[2020-09-27 13:36] VITALS: BP 149/61; PULSE 72; RESP 20; TEMP 36.4; O2SAT 96
--- NOTE | 2020-09-27 15:56 | CASEMGMT ---
Social Work Followed up with pt, per his request. Answered questions pertaining to insurance, wound dressing and IV ATB. Explained insurance is requesting pt lern how to change wound dressings since it is once daily and at home, there will not be a nurse out daily. Pt expressed irritation with request as he feels it is a complicated dressing, he is not comfortable changing it, he wants the nurses who are professionals to do it, and he cannot reach the wound to properly change the dressing. He is frustrated with the request and feels it is unfair for insurance to expect him to complete that task. Provided supportive listening and empathy. Pt inquired about DME at [facility] to assist with staying off feet - like an electric scooter or w/c. Explained insurance will not pay for either, but if he needs a knee scooter or walker or w/c, SW can assist. Pt stated he has a rollator at home that he could use. SW suggested for family to bring it in to ensure it is safe. Pt agreed. Encouraged pt to not refuse eduction to dressing changes by nursing and attempt to learn and assist - if it not possible, it will prove it is unable to be done by the pt. Pt reluctantly agreed. SW offered continued assistance. Will continue to follow. NRD 10/02 and continued stay is not guaranteed. Martina Rothman, [facility]
[2020-09-27 16:45] LABS: Bedside Glucose 86 mg/dL (70-110)
[2020-09-27] MEDS: Tamsulosin HCl 0.4 MG Capsule PO (18:15)
[2020-09-27 18:21] LABS: Bedside Glucose 121 mg/dL (70-110)
[2020-09-27 21:30] LABS: Bedside Glucose 106 mg/dL (70-110)
[2020-09-28 05:00] VITALS: BP 156/68; PULSE 80; RESP 18; TEMP 36.6; O2SAT 94
[2020-09-28] MEDS: Enoxaparin 40 MG/0.4 ML Syringe SC (05:19)
[2020-09-28] MEDS: Atorvastatin Calcium 40 MG Tablet PO (05:19)
[2020-09-28] MEDS: Lisinopril 40 MG Tablet PO (05:20)
[2020-09-28] MEDS: buPROPion (SR) 150 MG Tablet.SA PO ×2 (05:21→17:59)
[2020-09-28 06:10] LABS: Bedside Glucose 178 mg/dL (70-110)
--- NOTE | 2020-09-28 07:01 | NURSING ---
Patient was asked if he would like to get help with showering this am after ATB. Patient refused stating he would wait tell later. Patient stated to this nurse that he asked twice yesterday for help with shower and didn't receive any help. Rn made aware.
[2020-09-28] MEDS: Gabapentin 600 MG Tablet PO ×3 (08:23→17:59)
[2020-09-28] MEDS: Multivitamins,Therapeutic Tablet 1 TABLET PO (08:23)
[2020-09-28] MEDS: Calcium (Elemental) 500 MG Tablet PO (08:23)
[2020-09-28] MEDS: Aspirin E.C. 81 MG Tablet PO (08:23)
[2020-09-28] MEDS: 0.9% Saline Lock 10 ML Syringe IV ×2 (10:28→22:09)
--- NOTE | 2020-09-28 10:41 | NURSING ---
OLD NICOTINE PATCH REMOVED AND PUT IN DESTROYER. NEW PATCH APPLIED TO LEFT SHOULDER.
[2020-09-28 10:56] LABS: Bedside Glucose 188 mg/dL (70-110)
--- NOTE | 2020-09-28 13:44 | NURSING ---
Resident and family updated on COVID status on the unit.
[2020-09-28 13:53] VITALS: BP 160/81; PULSE 90; RESP 18; TEMP 36.4; O2SAT 95
--- NOTE | 2020-09-28 14:45 | NURSING ---
PT STATED HE UP DATES FAMILY.
--- NOTE | 2020-09-28 14:47 | NURSING ---
NOT ABLE TO FLUSH OR BLOOD RETURN IN BOTH LINES. RN AWARE AND PUT SALINE LOCK IN RIGHT HAND.
--- NOTE | 2020-09-28 14:50 | NURSING ---
PT UPDATED ON COVID POSITIVE STAFF.
[2020-09-28 16:56] LABS: Bedside Glucose 162 mg/dL (70-110)
[2020-09-28] MEDS: Tamsulosin HCl 0.4 MG Capsule PO (17:59)
[2020-09-28 22:41] LABS: Bedside Glucose 133 mg/dL (70-110)
[2020-09-28 23:45] VITALS: PULSE 85; RESP 18; O2SAT 96
[2020-09-29] MEDS: Acetaminophen 500 MG Tablet 1000 MG PO ×2 (00:20→11:42)
[2020-09-29] MEDS: Povidone-Iodine Swabstick 1 PACKET TOPICAL ×2 (00:28→10:58)
[2020-09-29 06:39] VITALS: BP 156/66; PULSE 78; RESP 16; TEMP 36.8; O2SAT 98
[2020-09-29] MEDS: Atorvastatin Calcium 40 MG Tablet PO (06:42)
[2020-09-29] MEDS: Enoxaparin 40 MG/0.4 ML Syringe SC (06:42)
[2020-09-29] MEDS: buPROPion (SR) 150 MG Tablet.SA PO ×2 (06:43→17:50)
[2020-09-29] MEDS: Lisinopril 40 MG Tablet PO (06:43)
[2020-09-29] MEDS: Gabapentin 600 MG Tablet PO ×3 (08:18→17:50)
[2020-09-29] MEDS: Calcium (Elemental) 500 MG Tablet PO (08:18)
[2020-09-29] MEDS: Multivitamins,Therapeutic Tablet 1 TABLET PO (08:18)
[2020-09-29] MEDS: Aspirin E.C. 81 MG Tablet PO (08:18)
[2020-09-29 08:33] LABS: Bedside Glucose 136 mg/dL (70-110)
[2020-09-29 08:33] LABS: Bedside Glucose 107 mg/dL (70-110)
--- NOTE | 2020-09-29 08:55 | PCM.PROGNOTE ---
Patient Problems: Active and Suspected Problems (Last Updated 08/28/20 @ 17:[address] Irene Claudio, [facility]) Debility (Acute) Peripheral vascular disease (Suspected) Cellulitis of right lower limb (Acute) Osteomyelitis of right foot (Acute) Subjective: Patient was seen today for follow up on bilateral feet. He relates he has been trying to stay off of his feet. No complaints of fever, chills, nausea or vomiting. - Physical Exam Vitals/I&O's: Vital Signs Temp Pulse Resp BP Pulse Ox 98.3 F 78 16 156/66 H 98 09/29/20 06:39 09/29/20 06:39 09/29/20 06:39 09/29/20 06:39 09/29/20 06:39 Oxygen Delivery Method Room Air Weight: 172.478 kg Body Mass Index (BMI) 47.2 Finger Stick Blood Glucose 137 Intake and Output for Last 24 Hours 09/27/20 09/28/20 09/29/20 23:59 23:59 23:59 Intake Total 2739.25 / 2739.25 2743.25 / 2743.25 1020 / 1020 Output Total 600 / 600 Balance 2739.25 / 2739.25 2143.25 / 2143.25 1020 / 1020 General: Alert, Oriented x3, Cooperative, No apparent distress Extremities: No cyanosis, Capillary Refill Less than 3 Seconds, No Calf Tenderness, Edema - diffuse generalized lower extremity edema - chronic bilaterally., - - TMA left foot with plantar ulcer sub residual 1st met: measures 1.4cm x 1.9cm and 0.2cm in depth down to subcutaneous tissue layer prior to debridement, no evidence of infection, there is a lot of callus and nonviable tissue to base and margins, no maloder. Skin: - - Right foot ulceration lateral aspect with some nonviable tissue and callus formation; measured 1.3cm x 0.9cm and 0.2cm in depth prior to debridement; no evidence of infection, no exposed bone bilateral. No evidence of ischemia to the foot or ankle bilateral. Musculoskeletal: No Tenderness to Palpation of Joints or Extremities - to the foot or ankle bilateral. TMA left foot. Laboratory Results 09/28/20 10:52: POC Glucose 188 H 09/28/20 16:40: POC Glucose 162 H 09/28/20 22:31: POC Glucose 133 H 09/29/20 06:03: POC Glucose 107 09/29/20 08:12: POC Glucose 136 H Current Medications Acetaminophen (Acetaminophen 500 Mg Tablet) 1,000 mg PO Q6H PRN PRN Reason: Pain Score 1-10 Last Admin: 09/29/20 00:20 Dose: 1,000 mg Documented by: Alteplase, Recombinant (Alteplase 2 Mg/2 Ml Vial) 2 mg IV DAILY PRN PRN PRN Reason: clotted central line port Last Admin: 09/20/20 17:27 Dose: 2 mg Documented by: Aspirin (Aspirin E.C. 81 Mg Tablet) 81 mg PO DAILY@0800 [facility] Last Admin: 09/29/20 08:18 Dose: 81 mg Documented by: Atorvastatin Calcium (Atorvastatin Calcium 40 Mg Tablet) 40 mg PO DAILY [facility] Last Admin: 09/29/20 06:42 Dose: 40 mg Documented by: Bisacodyl (Bisacodyl 10 Mg Suppository) 10 mg RECTAL DAILY PRN PRN Reason: Constipation Bupropion HCl (Bupropion (Sr) 150 Mg Tablet.Sa) 150 mg PO BID [facility] Last Admin: 09/29/20 06:43 Dose: 150 mg Documented by: Calcium Carbonate (Calcium (Elemental) 500 Mg Tablet) 500 mg PO DAILY@0800 [facility] Last Admin: 09/29/20 08:18 Dose: 500 mg Documented by: Enoxaparin Sodium (Enoxaparin 40 Mg/0.4 Ml Syringe) 40 mg SC DAILY [facility] Last Admin: 09/29/20 06:42 Dose: 40 mg Documented by: Gabapentin (Gabapentin 600 Mg Tablet) 600 mg PO TIDCM [facility] Last Admin: 09/29/20 08:18 Dose: 600 mg Documented by: Heparin Sodium (Beef Lung) (Heparin Pf Lock 10 Units/Ml 50 Units/5 Ml Syringe) 50 units IV UD PRN PRN Reason: PICC Line Heparin Flush Last Admin: 09/06/20 06:46 Dose: 50 units Documented by: Vancomycin HCl 2,000 mg/ (Sodium Chloride) 540 mls @ 250 mls/hr IV Q12H [facility] Stop: 10/10/20 10:59 Last Infusion: 09/29/20 01:20 Dose: Infused Documented by: Sodium Chloride () 250 mls @ 15 mls/hr IV .[id number] PRN PRN Reason: Saline Flush Last Infusion: 09/28/20 06:20 Dose: 0 mls/hr Documented by: Sodium Chloride () 250 mls @ 15 mls/hr IV .[id number] PRN PRN Reason: Additional IVPB Infusion Ampicillin Sodium/Sulbactam (Sodium 3 gm/ Sodium Chloride) 112 mls @ 150 mls/hr IV Q8 [facility] Stop: 10/10/20 12:00 Last Admin: 09/29/20 06:41 Dose: 150 mls/hr Documented by: Insulin Human Regular (Insulin U-500 Pen) 100 units SC BREAKFAST [facility] Last Admin: 09/29/20 08:17 Dose: 100 units Documented by: Insulin Human Regular (Insulin U-500 Pen) 100 units SC DINNER [facility] Last Admin: 09/28/20 17:58 Dose: 100 units Documented by: Insulin Human Regular (Insulin U-500 Pen) 100 units SC LUNCH [facility] Last Admin: 09/28/20 11:52 Dose: 100 units Documented by: Lisinopril (Lisinopril 40 Mg Tablet) 40 mg PO DAILY [facility] Last Admin: 09/29/20 06:43 Dose: 40 mg Documented by: Magnesium Hydroxide (Magnesium Hydroxide 30 Ml Udc) 30 ml PO DAILY PRN PRN Reason: Constipation Multivitamins (Multivitamins,Therapeutic Tablet) 1 tablet PO DAILY@0800 [facility] Last Admin: 09/29/20 08:18 Dose: 1 tablet Documented by: Nicotine (Nicotine 21 Mg Patch) 21 mg TD DAILY [facility] Last Admin: 09/29/20 06:40 Dose: 21 mg Documented by: Polyethylene Glycol (Polyethylene Glycol 3350 17 Gm Packet) 17 gm PO DAILY [facility] Last Admin: 09/29/20 06:40 Dose: Not Given Documented by: Povidone Iodine (Povidone-Iodine Swabstick) 1 packet TOPICAL 1000 [facility]; Protocol Last Admin: 09/29/20 00:28 Dose: 1 packet Documented by: Senna/Docusate Sodium (Senna/Docusate Sodium 1 Tablet) 1 tablet PO BID [facility] Last Admin: 09/29/20 06:40 Dose: Not Given Documented by: Sodium Chloride (0.9% Saline Lock 10 Ml Syringe) 10 - 40 ml IV UD PRN PRN Reason: Open End PICC Flush Last Admin: 09/28/20 22:09 Dose: 10 ml Documented by: Sodium Chloride (0.9 % Nacl (Sterile) Posiflush 10 Ml) 10 - 40 ml IV UD PRN PRN Reason: Port access or dressing change Tamsulosin HCl (Tamsulosin Hcl 0.4 Mg Capsule) 0.4 mg PO DAILY@1730 [facility] Last Admin: 09/28/20 17:59 Dose: 0.4 mg Documented by: Medical Necessity - Tobacco Use Smoking Status: Heavy Smoker (>10/day) Tobacco Use: Cigarettes Assessment/Plan All Active Problems (Last Updated 08/28/20 @ 17:[address] Irene Claudio, [facility]) Debility (Acute) Cellulitis of right lower limb (Acute) Osteomyelitis of right foot (Acute) Osteomyelitis right 5th metatarsal s/p 5th ray resection right foot 08/29/[address] Powell with healing ulcer Left foot ulcer down to subcutaneous tissue TMA left foot Uncontrolled diabetes with neuropathy Other comorbidities include tobacco abuse, obesity, sleep apnea, hyperlipidemia, hypertension, prior stage II kidney disease, BPH Patient seen and examined. Ulcerations were debrided in excision fashion right and left foot. This was done with a 15 blade, down to subcutaneous tissue. Post debridement the right foot ulcer measured 1.5cm x 1cm and 0.2cm in depth and left foot ulcer measured 1.5cm x 2.5cm and 0.2cm in depth. No anesthesia was needed due to patient's neuropathy. Hemostasis achieved with gauze and pressure. Cleansed with normal saline soln, applied aquacel and gauze, kerlix and guerrero dressing - change daily. Reviewed the importance of strict offloading of the ulcers at all times. Continue with antibiotic therapy per ID service. Again, no weightbearing to ulcer sites. Patient is to limit weightbearing as much as possible, but if have to focus on heel weightbearing in Surgical shoes with ulcers offloaded. Keep offloaded at all times. Discussed with patient in detail, he appears to be nonadherent with his based on the amount of callus formation left foot ulcer. Will add offloading pad to the surgical shoe. Podiatry will continue to follow weekly, call sooner if needed.
[2020-09-29] MEDS: 0.9% Saline Lock 10 ML Syringe IV ×2 (10:50→14:20)
[2020-09-29 11:01] LABS: Bedside Glucose 178 mg/dL (70-110)
--- NOTE | 2020-09-29 11:08 | NURSING ---
DR. CRAWFORD IN TO SEE PT THIS MORNING. DID DRESSING CHANGES AND SOME SCRAPING TO BOTH FEET.
--- NOTE | 2020-09-29 11:12 | NURSING ---
PT STATED HE UPDATES FAMILY.
--- NOTE | 2020-09-29 12:13 | NURSING ---
smocking machine operator called will be here in 45 minutes to one hour
[2020-09-29 12:50] VITALS: PULSE 78; RESP 18; O2SAT 95
--- NOTE | 2020-09-29 12:56 | NURSING ---
NICOTINE PATCH VERIFIED RIGHT POST SHOULDER.
--- NOTE | 2020-09-29 14:54 | NURSING ---
saline lock d/c and new picc put in in right upper arm.
[2020-09-29 15:13] VITALS: BP 163/51; PULSE 79; RESP 16; TEMP 36.9; O2SAT 96
[2020-09-29 16:40] LABS: Bedside Glucose 129 mg/dL (70-110)
[2020-09-29] MEDS: Tamsulosin HCl 0.4 MG Capsule PO (17:49)
[2020-09-29 21:36] LABS: Bedside Glucose 247 mg/dL (70-110)
[2020-09-30 04:00] VITALS: BP 154/69; PULSE 83; RESP 18; TEMP 36.6; O2SAT 92
[2020-09-30 06:25] LABS: Bedside Glucose 165 mg/dL (70-110)
[2020-09-30] MEDS: buPROPion (SR) 150 MG Tablet.SA PO ×2 (07:02→17:43)
[2020-09-30] MEDS: Lisinopril 40 MG Tablet PO (07:02)
[2020-09-30] MEDS: Enoxaparin 40 MG/0.4 ML Syringe SC (07:02)
[2020-09-30] MEDS: Atorvastatin Calcium 40 MG Tablet PO (07:02)
[2020-09-30 07:09] LABS: Absolute Neutrophil Count 5.9 X10^3/uL (2.0-7.7); Basophil% 1.1 % (0-1); Eosinophil# 0.41 X10^3/uL; Eosinophils% 4.4 % (0-5); Hematocrit 40.1 % (40-54); Hemoglobin 12.7 g/dL (13.0-16.5); Lymphocyte % 21.5 % (19-41); Mean Corp Hgb Conc 31.7 g/dL (32-36); Mean Corpuscular Hgb 28.1 pg (27.0-32.0); Mean Corpuscular Volume 88.7 fL (80-94); Mean Platelet Vol. 10.3 fl (6.2-12.0); Monocyte% 8.6 % (0-10); NRBC Flagged by Analyzer 0 % (0-5); Neutrophil % 63.2 % (47-70); Platelet Count 229 K/mm3 (150-450); RBC Distribution Width CV 14.4 % (11.6-14.6); RBC Distribution Width SD 46.1 fl (35.1-43.9); Red Blood Count 4.52 M/mm3 (4.6-6.2); White Blood Count 9.3 K/mm3 (4.4-11.0)
[2020-09-30 07:16] LABS: Erythrocyte Sedimentation Rate 79 mm/hr (0-20)
[2020-09-30 07:34] LABS: AST(SGOT) 12 U/L (15-37); Alanine Aminotransfer ALT/SGPT 25 U/L (16-61); Alkaline Phosphatase 86 U/L (45-117); Anion Gap 4 (5-15); BUN 13 mg/dL (7-18); BUN/Creat Ratio 17.1 RATIO (10-20); Bilirubin, Direct 0.09 mg/dL (0.00-0.30); Calcium,Total 8.3 mg/dL (8.5-10.1); Chloride 110 mmol/L (98-107); Creatinine, Serum 0.76 mg/dL (0.70-1.30); EST Glomerular Filtration Rate 109 mL/min (>60); Est Glom Filt Rate - Afr Amer 132 mL/min (>60); Estimated Creatinine Clearance 114.17 ml/min; Globulin 4.5 g/dL (2.2-4.2); Glucose 166 mg/dL (74-106); Protein, Total 7.5 g/dL (6.4-8.2); Sodium Level 139 mmol/L (136-145)
[2020-09-30] MEDS: 0.9% Saline Lock 10 ML Syringe IV ×4 (08:04→22:23)
[2020-09-30] MEDS: Gabapentin 600 MG Tablet PO ×3 (08:04→17:43)
[2020-09-30] MEDS: Aspirin E.C. 81 MG Tablet PO (08:04)
[2020-09-30] MEDS: Multivitamins,Therapeutic Tablet 1 TABLET PO (08:05)
[2020-09-30] MEDS: Calcium (Elemental) 500 MG Tablet PO (08:05)
[2020-09-30 11:21] LABS: Bedside Glucose 214 mg/dL (70-110)
--- NOTE | 2020-09-30 11:21 | PCM.PROGNOTE ---
Patient Problems: Active and Suspected Problems (Last Updated 08/28/20 @ 17:[address] Irene Claudio, [facility]) Debility (Acute) Peripheral vascular disease (Suspected) Cellulitis of right lower limb (Acute) Osteomyelitis of right foot (Acute) Subjective: Patient was seen today for follow up on bilateral foot ulcers, also has some leg wounds. He has no new complaints, no complaints of fever, chills, nausea or vomiting. - Physical Exam Vitals/I&O's: Vital Signs Temp Pulse Resp BP Pulse Ox 97.8 F 83 18 154/69 H 92 09/30/20 04:00 09/30/20 04:00 09/30/20 04:00 09/30/20 04:00 09/30/20 04:00 Oxygen Delivery Method Room Air Weight: 172.478 kg Body Mass Index (BMI) 47.2 Finger Stick Blood Glucose 137 Intake and Output for Last 24 Hours 09/28/20 09/29/20 09/30/20 23:59 23:59 23:59 Intake Total 2743.25 / 2743.25 2744 / 2744 1244 / 1244 Output Total 600 / 600 Balance 2143.25 / 2143.25 2744 / 2744 1244 / 1244 Extremities: Capillary Refill Less than 3 Seconds, No Calf Tenderness, - - plantar medial left foot ulcer, lateral right foot ulcer, also anterior right leg ulcer and left anterior leg ulcer - down to subcutaneous tissue, no evidence of infection, no maloder, no fluctuance, no crepitus, no visible abscess, no necrosis, no probe to bone, no cellulitis - tissues are healthy Musculoskeletal: No Tenderness to Palpation of Joints or Extremities, - - TMA left foot Neurological: - - Peripheral neuropathy bilateral lower extremity Psych/Mental Status: Normal Affect, Appropriate, Alert and oriented to time, place, person, mood and affect Laboratory Results 09/29/20 16:28: POC Glucose 129 H 09/29/20 21:28: POC Glucose 247 H 09/30/20 06:21: POC Glucose 165 H 09/30/20 06:46: WBC 9.3, RBC 4.52 L, Hgb 12.7 L, Hct 40.1, MCV 88.7, MCH 28.1, MCHC 31.7 L, RDW Std Deviation 46.1 H, RDW Coeff of Fatuma 14.4, Plt Count 229, MPV 10.3, Immature Gran % (Auto) 1.200 H, Neut % (Auto) 63.2, Lymph % (Auto) 21.5, Christian % (Auto) 8.6, Eos % (Auto) 4.4, Baso % (Auto) 1.1 H, Absolute Neuts (auto) 5.9, Absolute Lymphs (auto) 2.00, Nucleated RBC % 0, ESR 79 H 09/30/20 06:46: Sodium 139, Potassium 4.0, Chloride 110 H, Carbon Dioxide 25.0, Anion Gap 4 L, BUN 13, Creatinine 0.76, Estim Creat Clear Calc 114.17, Est GFR (MDRD) Af Amer 132, Est GFR (MDRD) Non-Af 109, BUN/Creatinine Ratio 17.1, Glucose 166 H, Calcium 8.3 L, Total Bilirubin 0.30, Direct Bilirubin 0.09, AST 12 L, ALT 25, Alkaline Phosphatase 86, Total Protein 7.5, Albumin 3.0 L, Globulin 4.5 H 09/30/20 11:10: POC Glucose 214 H Current Medications Acetaminophen (Acetaminophen 500 Mg Tablet) 1,000 mg PO Q6H PRN PRN Reason: Pain Score 1-10 Last Admin: 09/29/20 11:42 Dose: 1,000 mg Documented by: Alteplase, Recombinant (Alteplase 2 Mg/2 Ml Vial) 2 mg IV DAILY PRN PRN PRN Reason: clotted central line port Last Admin: 09/20/20 17:27 Dose: 2 mg Documented by: Aspirin (Aspirin E.C. 81 Mg Tablet) 81 mg PO DAILY@0800 [facility] Last Admin: 09/30/20 08:04 Dose: 81 mg Documented by: Atorvastatin Calcium (Atorvastatin Calcium 40 Mg Tablet) 40 mg PO DAILY [facility] Last Admin: 09/30/20 07:02 Dose: 40 mg Documented by: Bisacodyl (Bisacodyl 10 Mg Suppository) 10 mg RECTAL DAILY PRN PRN Reason: Constipation Bupropion HCl (Bupropion (Sr) 150 Mg Tablet.Sa) 150 mg PO BID [facility] Last Admin: 09/30/20 07:02 Dose: 150 mg Documented by: Calcium Carbonate (Calcium (Elemental) 500 Mg Tablet) 500 mg PO DAILY@0800 [facility] Last Admin: 09/30/20 08:05 Dose: 500 mg Documented by: Enoxaparin Sodium (Enoxaparin 40 Mg/0.4 Ml Syringe) 40 mg SC DAILY [facility] Last Admin: 09/30/20 07:02 Dose: 40 mg Documented by: Gabapentin (Gabapentin 600 Mg Tablet) 600 mg PO TIDCM [facility] Last Admin: 09/30/20 08:04 Dose: 600 mg Documented by: Heparin Sodium (Beef Lung) (Heparin Pf Lock 10 Units/Ml 50 Units/5 Ml Syringe) 50 units IV UD PRN PRN Reason: PICC Line Heparin Flush Last Admin: 09/06/20 06:46 Dose: 50 units Documented by: Vancomycin HCl 2,000 mg/ (Sodium Chloride) 540 mls @ 250 mls/hr IV Q12H [facility] Stop: 10/10/20 10:59 Last Infusion: 09/30/20 02:11 Dose: Infused Documented by: Sodium Chloride () 250 mls @ 15 mls/hr IV .[id number] PRN PRN Reason: Saline Flush Last Infusion: 09/28/20 06:20 Dose: 0 mls/hr Documented by: Sodium Chloride () 250 mls @ 15 mls/hr IV .[id number] PRN PRN Reason: Additional IVPB Infusion Ampicillin Sodium/Sulbactam (Sodium 3 gm/ Sodium Chloride) 112 mls @ 150 mls/hr IV Q8 [facility] Stop: 10/10/20 12:00 Last Infusion: 09/30/20 08:07 Dose: Infused Documented by: Insulin Human Regular (Insulin U-500 Pen) 100 units SC BREAKFAST [facility] Last Admin: 09/30/20 08:04 Dose: 100 units Documented by: Insulin Human Regular (Insulin U-500 Pen) 100 units SC DINNER [facility] Last Admin: 09/29/20 17:48 Dose: 100 units Documented by: Insulin Human Regular (Insulin U-500 Pen) 100 units SC LUNCH [facility] Last Admin: 09/29/20 11:38 Dose: 100 units Documented by: Lisinopril (Lisinopril 40 Mg Tablet) 40 mg PO DAILY [facility] Last Admin: 09/30/20 07:02 Dose: 40 mg Documented by: Magnesium Hydroxide (Magnesium Hydroxide 30 Ml Udc) 30 ml PO DAILY PRN PRN Reason: Constipation Multivitamins (Multivitamins,Therapeutic Tablet) 1 tablet PO DAILY@0800 [facility] Last Admin: 09/30/20 08:05 Dose: 1 tablet Documented by: Nicotine (Nicotine 21 Mg Patch) 21 mg TD DAILY [facility] Last Admin: 09/30/20 07:03 Dose: 21 mg Documented by: Polyethylene Glycol (Polyethylene Glycol 3350 17 Gm Packet) 17 gm PO DAILY [facility] Last Admin: 09/30/20 07:04 Dose: Not Given Documented by: Povidone Iodine (Povidone-Iodine Swabstick) 1 packet TOPICAL 1000 [facility]; Protocol Last Admin: 09/29/20 10:58 Dose: 1 packet Documented by: Senna/Docusate Sodium (Senna/Docusate Sodium 1 Tablet) 1 tablet PO BID [facility] Last Admin: 09/30/20 07:03 Dose: Not Given Documented by: Sodium Chloride (0.9% Saline Lock 10 Ml Syringe) 10 - 40 ml IV UD PRN PRN Reason: Open End PICC Flush Last Admin: 09/30/20 08:04 Dose: 10 ml Documented by: Sodium Chloride (0.9 % Nacl (Sterile) Posiflush 10 Ml) 10 - 40 ml IV UD PRN PRN Reason: Port access or dressing change Tamsulosin HCl (Tamsulosin Hcl 0.4 Mg Capsule) 0.4 mg PO DAILY@1730 [facility] Last Admin: 09/29/20 17:49 Dose: 0.4 mg Documented by: Medical Necessity - Tobacco Use Smoking Status: Heavy Smoker (>10/day) Tobacco Use: Cigarettes Assessment/Plan All Active Problems (Last Updated 08/28/20 @ 17:[address] Irene Claudio, [facility]) Debility (Acute) Cellulitis of right lower limb (Acute) Osteomyelitis of right foot (Acute) Osteomyelitis right 5th metatarsal s/p 5th ray resection right foot 08/29/[address] Powell with healing ulcer Left foot ulcer down to subcutaneous tissue Right anterior leg ulcer down to subcutaneous tissue Left leg ulcer down to subcutaneous tissue layer TMA left foot Uncontrolled diabetes with neuropathy Other comorbidities include tobacco abuse, obesity, sleep apnea, hyperlipidemia, hypertension, prior stage II kidney disease, BPH Patient seen and examined. Ulcerations do not need to be debrided today. Cleansed ulcerations with normal saline solution. Applied aquacel Ag to ulcerations, along with betadine to the right foot ulcer, right and left leg ulcers - these ulcerations were covered with gauze, applied kerlix and guerrero to bilateral foot. Continue with antibiotic therapy per ID service. Again, no weightbearing to ulcer sites. Patient is to limit weightbearing as much as possible, but if have to focus on heel weightbearing in Surgical shoes with ulcers offloaded. Keep offloaded at all times. Discussed with patient in detail, he appears to be nonadherent with his based on the amount of callus formation left foot ulcer. Offloading plastizote inserts were applied to surgical shoes to float and offload ulceration sites. Podiatry will continue to follow weekly, call sooner if needed.
[2020-09-30] MEDS: Povidone-Iodine Swabstick 1 PACKET TOPICAL (11:54)
[2020-09-30 15:43] VITALS: BP 155/79; PULSE 76; RESP 18; TEMP 36.7; O2SAT 96
[2020-09-30 16:40] LABS: Bedside Glucose 163 mg/dL (70-110)
[2020-09-30] MEDS: Tamsulosin HCl 0.4 MG Capsule PO (17:44)
[2020-09-30 21:36] LABS: Bedside Glucose 171 mg/dL (70-110)
[2020-09-30] MEDS: Acetaminophen 500 MG Tablet 1000 MG PO (22:21)
[2020-10-01 06:21] LABS: Bedside Glucose 185 mg/dL (70-110)
[2020-10-01] MEDS: 0.9% Saline Lock 10 ML Syringe IV ×2 (06:37→11:45)
[2020-10-01] MEDS: buPROPion (SR) 150 MG Tablet.SA PO ×2 (08:18→17:50)
[2020-10-01] MEDS: Aspirin E.C. 81 MG Tablet PO (08:18)
[2020-10-01] MEDS: Calcium (Elemental) 500 MG Tablet PO (08:18)
[2020-10-01] MEDS: Gabapentin 600 MG Tablet PO ×3 (08:18→17:49)
[2020-10-01] MEDS: Multivitamins,Therapeutic Tablet 1 TABLET PO (08:19)
[2020-10-01] MEDS: Lisinopril 40 MG Tablet PO (08:19)
[2020-10-01] MEDS: Atorvastatin Calcium 40 MG Tablet PO (08:19)
[2020-10-01] MEDS: Enoxaparin 40 MG/0.4 ML Syringe SC (08:20)
[2020-10-01 11:26] LABS: Bedside Glucose 261 mg/dL (70-110)
[2020-10-01] MEDS: Acetaminophen 500 MG Tablet 1000 MG PO ×2 (13:24→19:31)
[2020-10-01 14:46] VITALS: BP 162/59; PULSE 75; RESP 18; TEMP 36.8; O2SAT 97
[2020-10-01] MEDS: Povidone-Iodine Swabstick 1 PACKET TOPICAL (15:11)
[2020-10-01 16:18] VITALS: PULSE 74; RESP 18; O2SAT 96
[2020-10-01 16:40] LABS: Bedside Glucose 213 mg/dL (70-110)
[2020-10-01] MEDS: Tamsulosin HCl 0.4 MG Capsule PO (17:49)
[2020-10-01 21:35] LABS: Bedside Glucose 160 mg/dL (70-110)
[2020-10-02] MEDS: Acetaminophen 500 MG Tablet 1000 MG PO ×2 (00:54→06:42)
--- NOTE | 2020-10-02 01:18 | NURSING ---
Pt c/o pain to rt knee, no redness, no warmth, pt able to mb, pt amb to kitchen several times this past juliana, med with tylenol with fair affect, note left for Dr Meyer
[2020-10-02 03:09] VITALS: BP 154/66; PULSE 74; RESP 16; TEMP 37.1; O2SAT 97
[2020-10-02] MEDS: 0.9% Saline Lock 10 ML Syringe IV ×3 (05:53→13:32)
[2020-10-02 06:35] LABS: Bedside Glucose 133 mg/dL (70-110)
[2020-10-02] MEDS: Gabapentin 600 MG Tablet PO ×3 (08:16→17:57)
[2020-10-02] MEDS: Aspirin E.C. 81 MG Tablet PO (08:16)
[2020-10-02] MEDS: Atorvastatin Calcium 40 MG Tablet PO (08:18)
[2020-10-02] MEDS: Enoxaparin 40 MG/0.4 ML Syringe SC (08:18)
[2020-10-02] MEDS: Multivitamins,Therapeutic Tablet 1 TABLET PO (08:21)
[2020-10-02] MEDS: Calcium (Elemental) 500 MG Tablet PO (08:21)
[2020-10-02] MEDS: buPROPion (SR) 150 MG Tablet.SA PO ×2 (08:22→17:57)
[2020-10-02] MEDS: Lisinopril 40 MG Tablet PO (08:23)
[2020-10-02 08:32] VITALS: BP 142/52; PULSE 82
--- NOTE | 2020-10-02 08:41 | NURSING ---
THIS NURSE FOUND PT WITH OUT GREY WRAP TO RIGHT FOOT. ASKED PT WHAT HAPPENED PT STATED IT FELL OFF AND I THRU IT IN THE TRASH. THIS NURSE ASKED PT IF HE WAS ABLE TO REWRAP HIS FOOT WITH THE NEW GREY WRAP. PT STATED NO, WHY IS THIS 20 QUESTIONS. EXPLAINED TO PT HE NEEDS TO START TRYING TO LEARN HOW TO DO HIS DRESSINGS BEFORE GOING HOME. PT STATED HE CANT REACH HIS FEET. REPORTED TO RN.
--- NOTE | 2020-10-02 10:09 | NURSING ---
NEW NICOTINE PATCH TO LEFT SHOULDER. OLD PUT IN DESTROYER,WITNESS BY LAURIE ROTH
[2020-10-02] MEDS: traMADol 50 MG Tablet PO ×2 (11:08→22:33)
[2020-10-02 11:15] LABS: Bedside Glucose 215 mg/dL (70-110)
[2020-10-02 14:04] VITALS: BP 165/82; PULSE 79; RESP 16; O2SAT 96
[2020-10-02 16:30] LABS: Bedside Glucose 235 mg/dL (70-110)
[2020-10-02] MEDS: Tamsulosin HCl 0.4 MG Capsule PO (17:57)
[2020-10-02 21:31] LABS: Bedside Glucose 236 mg/dL (70-110)
[2020-10-02] MEDS: Povidone-Iodine Swabstick 1 PACKET TOPICAL (22:56)
[2020-10-03 04:00] VITALS: PULSE 75; RESP 18; TEMP 36.6; O2SAT 93
[2020-10-03 06:15] LABS: Bedside Glucose 225 mg/dL (70-110)
[2020-10-03] MEDS: Gabapentin 600 MG Tablet PO ×3 (07:56→16:42)
[2020-10-03] MEDS: Multivitamins,Therapeutic Tablet 1 TABLET PO (07:56)
[2020-10-03] MEDS: Calcium (Elemental) 500 MG Tablet PO (07:56)
[2020-10-03] MEDS: Lisinopril 40 MG Tablet PO (07:56)
[2020-10-03] MEDS: buPROPion (SR) 150 MG Tablet.SA PO ×2 (07:56→16:42)
[2020-10-03] MEDS: Aspirin E.C. 81 MG Tablet PO (07:56)
[2020-10-03] MEDS: Enoxaparin 40 MG/0.4 ML Syringe SC (07:57)
[2020-10-03] MEDS: Atorvastatin Calcium 40 MG Tablet PO (07:57)
[2020-10-03 08:02] VITALS: BP 159/70; PULSE 71
[2020-10-03 10:00] VITALS: PULSE 710; RESP 18; O2SAT 97
[2020-10-03] MEDS: Povidone-Iodine Swabstick 1 PACKET TOPICAL (10:43)
[2020-10-03 10:46] LABS: Bedside Glucose 233 mg/dL (70-110)
[2020-10-03] MEDS: traMADol 50 MG Tablet PO (10:50)
--- NOTE | 2020-10-03 11:29 | PCM.RX.CS ---
Consult Pharmacy has been consulted to manage selected antiobiotic: Vancomycin Type of Consult: Follow-up Labs: Sodium 139 mmol/L (136-145) 09/30/20 06:46 Potassium 4.0 mmol/L (3.5-5.1) 09/30/20 06:46 Chloride 110 mmol/L (98-107) H 09/30/20 06:46 Carbon Dioxide 25.0 mmol/L (21.0-32.0) 09/30/20 06:46 Anion Gap 4 (5-15) L 09/30/20 06:46 BUN 13 mg/dL (7-18) 09/30/20 06:46 Creatinine 0.76 mg/dL (0.70-1.30) 09/30/20 06:46 Est GFR (MDRD) Af Amer 132 mL/min (>60) 09/30/20 06:46 Est GFR (MDRD) Non-Af 109 mL/min (>60) 09/30/20 06:46 BUN/Creatinine Ratio 17.1 RATIO (10-20) 09/30/20 06:46 Glucose 166 mg/dL (74-106) H 09/30/20 06:46 Vancomycin Trough 11.0 ug/mL (5.0-15.0) 10/03/20 10:26 Microbiology: Microbiology 10/02/20 11:35 Nasal Secretion SARS-CoV-2 Antigen (Rapid) - Final 09/25/20 11:30 Nasal Secretion SARS-CoV-2 Antigen (Rapid) - Final 09/18/20 12:20 Nasal Secretion SARS-CoV-2 Antigen (Rapid) - Final 09/11/20 14:00 Nasal Secretion SARS-CoV-2 Antigen (Rapid) - Final Pharmacy Plan for Drug Dosing: VANCOMYCIN LEVEL RECEIVED Current Vancomycin Dose: 2000mg IV Q12hr Number of Doses Received: 63 Vancomycin Level: 11 Hours Since Last Dose: 11hrs Renal Function: 0.76 Renal Function Trend: stable Lab/Micro: no new results Vancomycin Plan/Comments: The patient has been on 2000mg IV Q12hr for several weeks at this time. Trough resulted in 11 (drawn appropriately). I discussed case with Dr. Pathak, and is ok with continuing at current dose. Patient is to be on IV Abx through 10/10/20 at this time. Will not plan on drawing another trough, and will continue current dose of 2000mg IV Q12hrs to complete course of therapy. Pending Level: None at this time. Pharmacy Service will continue to monitor and adjust dosing as required.
[2020-10-03] MEDS: 0.9% Saline Lock 10 ML Syringe IV ×3 (12:04→21:20)
--- NOTE | 2020-10-03 12:30 | NURSING ---
NEW NICOTINE PATCH APPLIED TO LEFT DELT. OLD PATCH PUT IN DESTROYER.
[2020-10-03 14:01] VITALS: BP 158/69; PULSE 74; RESP 18; TEMP 36.6; O2SAT 95
--- NOTE | 2020-10-03 15:13 | CASEMGMT ---
Social Work Insurance LCD 10/10, DC 10/11 due to end of IV ATB. Spoke with wound nurse about dressing changes since pt cannot change them on his own. Dr. Claudio approved every other day dressing changes, and she can see him at the wound clinic every Friday. Referred to [facility] for SN for 2-3 times/wk visits for dressing changes. Awaiting acceptance. Spoke with pt and provided above information. Pt agreeable and appreciative. Pt stated he can use the bus for transport. Left message with wound clinic. Plan: DC home 10/11 with wound center f/u and [facility] SN Martina Rothman, [employer]
[2020-10-03 16:20] LABS: Bedside Glucose 204 mg/dL (70-110)
[2020-10-03] MEDS: Tamsulosin HCl 0.4 MG Capsule PO (16:42)
--- NOTE | 2020-10-03 20:30 | DCINST_ITS ---
- Discharge Diagnoses Current Active Problems: Current Active and Chronic Problems (Last Updated 08/28/20 @ 17:[address] 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) Tobacco abuse (Chronic) Osteomyelitis, unspecified (Chronic) Diabetic ulcer of left foot (Chronic) Difficulty in walking, not elsewhere classified (Chronic) MRSA (methicillin resistant staph aureus) culture positive (Chronic) History of transmetatarsal amputation of left foot (Chronic) Cellulitis of right lower limb (Acute) Osteomyelitis of right foot (Acute) You will use the following diet at home:: No restrictions, Regular Your food should be the consistency of: Regular Your liquids should be the consistency of: Regular/Thin Discharge Activity: Return to Normal Activity, May Shower, Use Walker Weight Bearing Status: Weight bearing as tolerated Call your doctor if you observe: Fever of 101 or Higher, Inability to urinate, Inability to have a bowel movement, Shortness of breath, Chest pain, Uncontrolled pain Allergies/Adverse Reactions: Allergies Sulfa (Sulfonamide Antibiotics) Allergy (Verified 07/28/20 14:16) Rash Medications to take at Discharge Calcium Carbonate [Calcium] 500 mg PO DAILY 06/23/17 Multivitamin [Multiple Vitamins] 1 ea PO DAILY 06/23/17 atorvastatin 40 mg tablet 40 mg PO DAILY 10/18/19 bupropion HCl 150 mg 24 hr tablet, extended release 150 mg PO BID tab 10/18/19 tamsulosin 0.4 mg capsule 0.4 mg PO DAILY@1730 cap 10/18/19 gabapentin 300 mg capsule 600 mg PO TIDCM cap 04/24/20 aspirin 81 mg tablet,delayed release 81 mg PO DAILY tab 07/28/20 Insulin U-500 [Humulin R U-500 (BK)] 140 units SC DINNER 08/28/20 Insulin U-500 [Humulin R U-500 (BKC)] 150 units SC BREAKFAST 08/28/20 Insulin U-500 [Humulin R U-500 (BK)] 160 units SC LUNCH 08/28/20 Blood Sugar Diagnostic [Onetouch Verio Test Strip] See Rx Instructions .ROUTE .MEDSUPPLY 09/01/20 Lancets See Rx Instructions .ROUTE .MEDSUPPLY 09/01/20 Lisinopril 40 mg PO DAILY 09/01/20 Acetaminophen [Tylenol] 1,000 mg PO Q6H PRN tablet 10/03/20 Nicotine [Nicoderm Cq] 21 mg TD DAILY #30 patch 10/03/20 traMADol [Ultram] 50 mg PO Q6H PRN PRN #28 tablet 10/03/20 The following prescriptions were given: Nicotine [Nicoderm Cq] 21 mg TD DAILY #30 patch Transmission Status: Pending to [id number] traMADol [Ultram] 50 mg PO Q6H PRN PRN #28 tablet PRN Reason: Pain Score 6-10 Transmission Status: Received by [id number] Primary Care Physician: Jaime Meyer Chi, MD [Primary Care Provider] - Please follow up with your Primary Care Physician in: 1 week. Test Results: Test results from this visit will be discussed in further detail at your follow- up appointment, if applicable. Please Follow Up With: Glenn Leone DPM - Wound Center. When: 1 week. Proposed Discharge Date: 10/11/20
--- NOTE | 2020-10-03 20:32 | DS.PCM_ITS ---
Discharge Date and Diagnosis - Problem List Patient Problems: Active and Suspected Problems (Last Updated 08/28/20 @ 17:[address] Irene Claudio DPM) Debility (Acute) Peripheral vascular disease (Suspected) Cellulitis of right lower limb (Acute) Osteomyelitis of right foot (Acute) Date of Admission: 09/01/20 Date of Discharge: 10/11/20 - Primary Discharge Diagnosis Acute Problems: Active Problems (Last Updated 08/28/20 @ 17:[address] Irene Claudio DPM) Debility (Acute) Cellulitis of right lower limb (Acute) Osteomyelitis of right foot (Acute) Suspected Problems: Suspected Problems (Last Updated 08/28/20 @ 17:[address] Irene Claudio DPM) Peripheral vascular disease (Suspected) - Secondary Discharge Diagnosis Chronic Problems: Chronic Problems (Last Updated 08/28/20 @ 17:[address] 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) 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) Benign essential hypertension (Chronic) Mixed hyperlipidemia (Chronic) Chronic ulcer of right foot with fat layer exposed (Chronic) Obesity (Chronic) Tobacco abuse (Chronic) Osteomyelitis, unspecified (Chronic) Chronic ulcer of left foot with fat layer exposed (Chronic) Osteomyelitis of left foot (Chronic) Diabetic ulcer of left foot (Chronic) Other specified peripheral vascular diseases (Chronic) Delayed wound healing (Chronic) Difficulty in walking, not elsewhere classified (Chronic) 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) Tobacco abuse counseling (Chronic) MRSA (methicillin resistant staph aureus) culture positive (Chronic) Ulcer of left foot with muscle involvement without evidence of necrosis (Chronic) Ulcer of left foot with necrosis of muscle (Chronic) History of transmetatarsal amputation of left foot (Chronic) Ulcer of right foot with fat layer exposed (Chronic) Ulcer of right lower extremity with fat layer exposed (Chronic) Chronic ulcer of right foot with necrosis of muscle (Chronic) no necrosis clarified Hospital Course and Treatment Imaging Results: 09/04/20 11:56 Diet: Cardiac - Heart Healthy Food consistency:: Regular Liquid Consistency:: Regular/Thin Dietary Modifications:: Consistent Carbohydrate Is pt able to select menu?: Yes Clinical Impression(s) from Imaging Studies Chest X-Ray 09/11/20 14:20 IMPRESSION: Mild degree of increased signal markings at the lung bases worse at the left lung base suggestive of atelectasis. 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 Discharge home with Wound Center follow-up, [facility] . Patient Problems: Active and Suspected Problems (Last Updated 08/28/20 @ 17:[address] Irene Claudio, DPM) Debility (Acute) Peripheral vascular disease (Suspected) Cellulitis of right lower limb (Acute) Osteomyelitis of right foot (Acute) - Physical Exam Vitals/I&O's: Vital Signs Temp Pulse Resp BP Pulse Ox 97.9 F 74 18 158/69 H 95 10/03/20 14:01 10/03/20 14:01 10/03/20 14:01 10/03/20 14:01 10/03/20 14:01 Oxygen Delivery Method Room Air Weight: 170.778 kg Body Mass Index (BMI) 47.2 Finger Stick Blood Glucose 137 Intake and Output for Last 24 Hours 10/01/20 10/02/20 10/03/20 23:59 23:59 23:59 Intake Total 3106 / 3106 2655 / 2655 2504 / 2504 Output Total 900 / 900 Balance 2206 / 2206 2655 / 2655 2504 / 2504 Microbiology Past 72 Hours 10/02/20 11:35 Nasal Secretion SARS-CoV-2 Antigen (Rapid) - Final Laboratory Results 10/02/20 21:25: POC Glucose 236 H 10/03/20 06:07: POC Glucose 225 H 10/03/20 10:26: Vancomycin Trough 11.0 10/03/20 10:42: POC Glucose 233 H 10/03/20 16:15: POC Glucose 204 H Current Medications Acetaminophen (Acetaminophen 500 Mg Tablet) 1,000 mg PO Q6H PRN PRN Reason: Pain Score 1-5 Last Admin: 10/02/20 06:42 Dose: 1,000 mg Documented by: Alteplase, Recombinant (Alteplase 2 Mg/2 Ml Vial) 2 mg IV DAILY PRN PRN PRN Reason: clotted central line port Last Admin: 09/20/20 17:27 Dose: 2 mg Documented by: Aspirin (Aspirin E.C. 81 Mg Tablet) 81 mg PO DAILY@0800 [facility] Last Admin: 10/03/20 07:56 Dose: 81 mg Documented by: Atorvastatin Calcium (Atorvastatin Calcium 40 Mg Tablet) 40 mg PO DAILY@0800 [facility] Last Admin: 10/03/20 07:57 Dose: 40 mg Documented by: Bisacodyl (Bisacodyl 10 Mg Suppository) 10 mg RECTAL DAILY PRN PRN Reason: Constipation Bupropion HCl (Bupropion (Sr) 150 Mg Tablet.Sa) 150 mg PO 0800,1800 [facility] Last Admin: 10/03/20 16:42 Dose: 150 mg Documented by: Calcium Carbonate (Calcium (Elemental) 500 Mg Tablet) 500 mg PO DAILY@0800 [facility] Last Admin: 10/03/20 07:56 Dose: 500 mg Documented by: Enoxaparin Sodium (Enoxaparin 40 Mg/0.4 Ml Syringe) 40 mg SC DAILY@0800 [facility] Last Admin: 10/03/20 07:57 Dose: 40 mg Documented by: Gabapentin (Gabapentin 600 Mg Tablet) 600 mg PO TIDCM [facility] Last Admin: 10/03/20 16:42 Dose: 600 mg Documented by: Heparin Sodium (Beef Lung) (Heparin Pf Lock 10 Units/Ml 50 Units/5 Ml Syringe) 50 units IV UD PRN PRN Reason: PICC Line Heparin Flush Last Admin: 09/06/20 06:46 Dose: 50 units Documented by: Vancomycin HCl 2,000 mg/ (Sodium Chloride) 540 mls @ 250 mls/hr IV Q12H [facility] Stop: 10/10/20 10:59 Last Infusion: 10/03/20 15:01 Dose: Infused Documented by: Sodium Chloride () 250 mls @ 15 mls/hr IV .[id number] PRN PRN Reason: Saline Flush Last Admin: 10/03/20 06:38 Dose: 15 mls/hr Documented by: Sodium Chloride () 250 mls @ 15 mls/hr IV .[id number] PRN PRN Reason: Additional IVPB Infusion Ampicillin Sodium/Sulbactam (Sodium 3 gm/ Sodium Chloride) 112 mls @ 150 mls/hr IV Q8 [facility] Stop: 10/10/20 12:00 Last Infusion: 10/03/20 16:00 Dose: Infused Documented by: Insulin Human Regular (Insulin U-500 Pen) 110 units SC BREAKFAST [facility] Insulin Human Regular (Insulin U-500 Pen) 110 units SC DINNER [facility] Last Admin: 10/03/20 16:41 Dose: 110 u Documented by: Insulin Human Regular (Insulin U-500 Pen) 110 units SC LUNCH [facility] Lisinopril (Lisinopril 40 Mg Tablet) 40 mg PO DAILY@0800 [facility] Last Admin: 10/03/20 07:56 Dose: 40 mg Documented by: Magnesium Hydroxide (Magnesium Hydroxide 30 Ml Udc) 30 ml PO DAILY PRN PRN Reason: Constipation Multivitamins (Multivitamins,Therapeutic Tablet) 1 tablet PO DAILY@0800 [facility] Last Admin: 10/03/20 07:56 Dose: 1 tablet Documented by: Nicotine (Nicotine 21 Mg Patch) 21 mg TD DAILY@0800 [facility] Last Admin: 10/03/20 07:54 Dose: 21 mg Documented by: Polyethylene Glycol (Polyethylene Glycol 3350 17 Gm Packet) 17 gm PO DAILY@0800 [facility] Last Admin: 10/03/20 07:57 Dose: Not Given Documented by: Povidone Iodine (Povidone-Iodine Swabstick) 1 packet TOPICAL 1000 GT; Protocol Last Admin: 10/03/20 10:43 Dose: 1 packet Documented by: Senna/Docusate Sodium (Senna/Docusate Sodium 1 Tablet) 1 tablet PO 0800,1800 [facility] Last Admin: 10/03/20 16:42 Dose: Not Given Documented by: Sodium Chloride (0.9% Saline Lock 10 Ml Syringe) 10 - 40 ml IV UD PRN PRN Reason: Open End PICC Flush Last Admin: 10/03/20 15:14 Dose: 10 ml Documented by: Sodium Chloride (0.9 % Nacl (Sterile) Posiflush 10 Ml) 10 - 40 ml IV UD PRN PRN Reason: Port access or dressing change Tamsulosin HCl (Tamsulosin Hcl 0.4 Mg Capsule) 0.4 mg PO DAILY@1730 [facility] Last Admin: 10/03/20 16:42 Dose: 0.4 mg Documented by: Tramadol HCl (Tramadol 50 Mg Tablet) 50 mg PO Q6H PRN PRN PRN Reason: Pain Score 6-10 Last Admin: 10/03/20 10:50 Dose: 50 mg Documented by: Discharge Diet: No Restrictions Discharge Activity: Return to Normal Activity, May Shower, Use Walker Weight Bearing Status: Weight bearing as tolerated Call your doctor if you observe: Fever of 101 or Higher, Inability to urinate, Inability to have a bowel movement, Shortness of breath, Chest pain, Uncontrolled pain Home Medications: Medications to take at Discharge Calcium Carbonate [Calcium] 500 mg PO DAILY 06/23/17 Multivitamin [Multiple Vitamins] 1 ea PO DAILY 06/23/17 atorvastatin 40 mg tablet 40 mg PO DAILY 10/18/19 bupropion HCl 150 mg 24 hr tablet, extended release 150 mg PO BID tab 10/18/19 tamsulosin 0.4 mg capsule 0.4 mg PO DAILY@1730 cap 10/18/19 gabapentin 300 mg capsule 600 mg PO TIDCM cap 04/24/20 aspirin 81 mg tablet,delayed release 81 mg PO DAILY tab 07/28/20 Insulin U-500 [Humulin R U-500 (BKC)] 140 units SC DINNER 08/28/20 Insulin U-500 [Humulin R U-500 (BKC)] 150 units SC BREAKFAST 08/28/20 Insulin U-500 [Humulin R U-500 (BKC)] 160 units SC LUNCH 08/28/20 Blood Sugar Diagnostic [Onetouch Verio Test Strip] See Rx Instructions .ROUTE .MEDSUPPLY 09/01/20 Lancets See Rx Instructions .ROUTE .MEDSUPPLY 09/01/20 Lisinopril 40 mg PO DAILY 09/01/20 Acetaminophen [Tylenol] 1,000 mg PO Q6H PRN tablet 10/03/20 Nicotine [Nicoderm Cq] 21 mg TD DAILY #30 patch 10/03/20 traMADol [Ultram] 50 mg PO Q6H PRN PRN #28 tablet 10/03/20 Following Prescriptions Were Given to Patient: Nicotine [Nicoderm Cq] 21 mg TD DAILY #30 patch Transmission Status: [id number] traMADol [Ultram] 50 mg PO Q6H PRN PRN #28 tablet PRN Reason: Pain Score 6-10 Transmission Status: Re[facility] by [id number] Primary Care Physician: Jaime Meyer Chi, MD [Primary Care Provider] - Please follow up with your Primary Care Physician in: 1 week. Please Follow Up With: Glenn Leone DPM - Wound Center. When: 1 week. Disposition: Home with Home Health Minutes spent on discharge:: 35 Patient Condition:: Stable Medical Necessity - Tobacco Use Smoking Status: Heavy Smoker (>10/day) Tobacco Use: Cigarettes Meaningful Use Info Meaningful Use Diagnoses (Choose all that apply): None applicable
[2020-10-03 21:25] LABS: Bedside Glucose 110 mg/dL (70-110)
[2020-10-04] MEDS: 0.9% Saline Lock 10 ML Syringe IV ×3 (06:19→21:43)
[2020-10-04 06:21] LABS: Bedside Glucose 97 mg/dL (70-110)
[2020-10-04 06:45] VITALS: BP 156/96; PULSE 81; RESP 18; TEMP 36.6; O2SAT 95
[2020-10-04] MEDS: Gabapentin 600 MG Tablet PO ×3 (08:37→17:59)
[2020-10-04] MEDS: Aspirin E.C. 81 MG Tablet PO (08:37)
[2020-10-04] MEDS: Atorvastatin Calcium 40 MG Tablet PO (08:38)
[2020-10-04] MEDS: Enoxaparin 40 MG/0.4 ML Syringe SC (08:39)
[2020-10-04] MEDS: Multivitamins,Therapeutic Tablet 1 TABLET PO (08:40)
[2020-10-04] MEDS: Lisinopril 40 MG Tablet PO (08:40)
[2020-10-04] MEDS: Calcium (Elemental) 500 MG Tablet PO (08:40)
[2020-10-04] MEDS: buPROPion (SR) 150 MG Tablet.SA PO ×2 (08:40→17:59)
[2020-10-04] MEDS: Senna/Docusate Sodium 1 Tablet PO ×2 (08:40→17:59)
[2020-10-04 11:00] LABS: Bedside Glucose 187 mg/dL (70-110)
[2020-10-04] MEDS: traMADol 50 MG Tablet PO (12:12)
[2020-10-04 13:29] VITALS: BP 157/75; PULSE 74; RESP 18; TEMP 36.9; O2SAT 93
--- NOTE | 2020-10-04 16:13 | NURSING ---
DR GUAN CHANGED DRESSING TO BILAT FEET TODAY
--- NOTE | 2020-10-04 16:15 | PN_ITS ---
Patient Problems: Active and Suspected Problems (Last Updated 08/28/20 @ 17:[address] Irene Claudio, [facility]) Debility (Acute) Peripheral vascular disease (Suspected) Cellulitis of right lower limb (Acute) Osteomyelitis of right foot (Acute) Subjective: Patient was seen today for follow up on bilateral foot ulcers and right leg [facility] as well. He has no new complaints, no complaints of fever, chills, nausea or vomiting. He is on IV antibiotics for treatment of previous osteomyelitis. He is planning to return home next Friday or . He denies lower extremity pain. - Physical Exam Vitals/I&O's: Vital Signs Temp Pulse Resp BP Pulse Ox 98.5 F 74 18 157/75 H 93 10/04/20 13:29 10/04/20 13:29 10/04/20 13:29 10/04/20 13:29 10/04/20 13:29 Oxygen Delivery Method Room Air Weight: 170.778 kg Body Mass Index (BMI) 47.2 Finger Stick Blood Glucose 137 Intake and Output for Last 24 Hours 10/02/20 10/03/20 10/04/20 23:59 23:59 23:59 Intake Total 2655 / 2655 2847 / 2847 2264 / 2264 Balance 2655 / 2655 2847 / 2847 2264 / 2264 General: Alert, Oriented x3, Cooperative HEENT: Atraumatic Extremities: No cyanosis, Capillary Refill Less than 3 Seconds, No Calf Tenderness - Negative Ernie and Rangel sign bilateral, Diminished Peripheral Pulses, Edema - Moderate bilateral lower extremities. Compartments remain soft. There is no bogginess or fluctuance., - - Left transmetatarsal amputation Skin: Ulcer/ Wound - Skin discontinuity lateral right foot measures 2 x 1.5 x 0.2 cm and predebridement 1.9 x 1.4 x 0.2 cm with granular base and no exposed deep tissue or necrosis. Anterior right leg clustered granular base and fibrous tissue and weeping drainage., - - Plantar left foot measures 1.6 x 1.6 x 0.1 cm and post debridement 1.7 x 1.7 x 0.1 cm with granular base and peripheral callus. Skin is hairless and atrophic. There is no purulence, erythema, streaking, odor, necrosis or deep tissue exposure bilateral lower extremities. Neurological: - - Lack of normal epicritic sensation light touch is consistent with his neuropathy status Psych/Mental Status: Normal Affect, Appropriate Microbiology Past 72 Hours 10/02/20 11:35 Nasal Secretion SARS-CoV-2 Antigen (Rapid) - Final Laboratory Results 10/03/20 16:15: POC Glucose 204 H 10/03/20 21:21: POC Glucose 110 10/04/20 06:13: POC Glucose 97 10/04/20 10:53: POC Glucose 187 H Current Medications Acetaminophen (Acetaminophen 500 Mg Tablet) 1,000 mg PO Q6H PRN PRN Reason: Pain Score 1-5 Last Admin: 10/02/20 06:42 Dose: 1,000 mg Documented by: Alteplase, Recombinant (Alteplase 2 Mg/2 Ml Vial) 2 mg IV DAILY PRN PRN PRN Reason: clotted central line port Last Admin: 09/20/20 17:27 Dose: 2 mg Documented by: Aspirin (Aspirin E.C. 81 Mg Tablet) 81 mg PO DAILY@0800 [facility] Last Admin: 10/04/20 08:37 Dose: 81 mg Documented by: Atorvastatin Calcium (Atorvastatin Calcium 40 Mg Tablet) 40 mg PO DAILY@0800 [facility] Last Admin: 10/04/20 08:38 Dose: 40 mg Documented by: Bisacodyl (Bisacodyl 10 Mg Suppository) 10 mg RECTAL DAILY PRN PRN Reason: Constipation Bupropion HCl (Bupropion (Sr) 150 Mg Tablet.Sa) 150 mg PO 0800,1800 [facility] Last Admin: 10/04/20 08:40 Dose: 150 mg Documented by: Calcium Carbonate (Calcium (Elemental) 500 Mg Tablet) 500 mg PO DAILY@0800 [facility] Last Admin: 10/04/20 08:40 Dose: 500 mg Documented by: Enoxaparin Sodium (Enoxaparin 40 Mg/0.4 Ml Syringe) 40 mg SC DAILY@0800 [facility] Last Admin: 10/04/20 08:39 Dose: 40 mg Documented by: Gabapentin (Gabapentin 600 Mg Tablet) 600 mg PO TIDCM [facility] Last Admin: 10/04/20 11:16 Dose: 600 mg Documented by: Heparin Sodium (Beef Lung) (Heparin Pf Lock 10 Units/Ml 50 Units/5 Ml Syringe) 50 units IV UD PRN PRN Reason: PICC Line Heparin Flush Last Admin: 09/06/20 06:46 Dose: 50 units Documented by: Vancomycin HCl 2,000 mg/ (Sodium Chloride) 540 mls @ 250 mls/hr IV Q12H [facility] Stop: 10/10/20 10:59 Last Infusion: 10/04/20 15:29 Dose: Infused Documented by: Sodium Chloride () 250 mls @ 15 mls/hr IV .[id number] PRN PRN Reason: Saline Flush Last Infusion: 10/03/20 22:46 Dose: 0 mls/hr Documented by: Sodium Chloride () 250 mls @ 15 mls/hr IV .[id number] PRN PRN Reason: Additional IVPB Infusion Ampicillin Sodium/Sulbactam (Sodium 3 gm/ Sodium Chloride) 112 mls @ 150 mls/hr IV Q8 [facility] Stop: 10/10/20 12:00 Last Infusion: 10/04/20 15:29 Dose: Infused Documented by: Insulin Human Regular (Insulin U-500 Pen) 110 units SC BREAKFAST [facility] Last Admin: 10/04/20 08:37 Dose: 110 units Documented by: Insulin Human Regular (Insulin U-500 Pen) 110 units SC DINNER [facility] Last Admin: 10/03/20 16:41 Dose: 110 u Documented by: Insulin Human Regular (Insulin U-500 Pen) 110 units SC LUNCH [facility] Last Admin: 10/04/20 11:17 Dose: 110 units Documented by: Lisinopril (Lisinopril 40 Mg Tablet) 40 mg PO DAILY@0800 [facility] Last Admin: 10/04/20 08:40 Dose: 40 mg Documented by: Magnesium Hydroxide (Magnesium Hydroxide 30 Ml Udc) 30 ml PO DAILY PRN PRN Reason: Constipation Multivitamins (Multivitamins,Therapeutic Tablet) 1 tablet PO DAILY@0800 [facility] Last Admin: 10/04/20 08:40 Dose: 1 tablet Documented by: Nicotine (Nicotine 21 Mg Patch) 21 mg TD DAILY@0800 [facility] Last Admin: 10/04/20 08:40 Dose: 21 mg Documented by: Polyethylene Glycol (Polyethylene Glycol 3350 17 Gm Packet) 17 gm PO DAILY@0800 [facility] Last Admin: 10/04/20 08:39 Dose: Not Given Documented by: Povidone Iodine (Povidone-Iodine Swabstick) 1 packet TOPICAL 1000 [facility]; Protocol Last Admin: 10/04/20 11:22 Dose: Not Given Documented by: Senna/Docusate Sodium (Senna/Docusate Sodium 1 Tablet) 1 tablet PO 0800,1800 [facility] Last Admin: 10/04/20 08:40 Dose: 1 tablet Documented by: Sodium Chloride (0.9% Saline Lock 10 Ml Syringe) 10 - 40 ml IV UD PRN PRN Reason: Open End PICC Flush Last Admin: 10/04/20 11:12 Dose: 20 ml Documented by: Sodium Chloride (0.9 % Nacl (Sterile) Posiflush 10 Ml) 10 - 40 ml IV UD PRN PRN Reason: Port access or dressing change Tamsulosin HCl (Tamsulosin Hcl 0.4 Mg Capsule) 0.4 mg PO DAILY@1730 [facility] Last Admin: 10/03/20 16:42 Dose: 0.4 mg Documented by: Tramadol HCl (Tramadol 50 Mg Tablet) 50 mg PO Q6H PRN PRN PRN Reason: Pain Score 6-10 Last Admin: 10/04/20 12:12 Dose: 50 mg Documented by: Medical Necessity - Tobacco Use Smoking Status: Heavy Smoker (>10/day) Tobacco Use: Cigarettes Assessment/Plan All Active Problems (Last Updated 08/28/20 @ 17:[address] Irene Claudio, [facility]) Debility (Acute) Cellulitis of right lower limb (Acute) Osteomyelitis of right foot (Acute) Osteomyelitis right 5th metatarsal s/p 5th ray resection right foot 08/29/[address] Powell with healing ulcer Left foot ulcer down to subcutaneous tissue Right anterior leg ulcer down to subcutaneous tissue TMA left foot Uncontrolled diabetes with neuropathy Other comorbidities include tobacco abuse, obesity, sleep apnea, hyperlipidemia, hypertension, prior stage II kidney disease, BPH Walking impairment Patient seen and examined. Debridement with a 15 blade scalpel was performed after verbal consent was obtained the right leg, lateral right forefoot, and plantar medial left foot. This was performed to remove fibrous tissue, devitalized subcutaneous tissue, biofilm, and slough. Hematogenous drainage was noted and pressure was applied to maintain hemostasis. He tolerated this well without the use of local anesthetic due to his neuropathy status. Cleansed ulcerations with normal saline solution. Applied aquacel Ag to ulcerations, along with betadine to the right foot ulcer, right and left leg ulcers - these ulcerations were covered with gauze, applied kerlix and angus to bilateral foot. Continue with antibiotic therapy per ID service. This course will and next week and he plans to return home at that time. Again, no weightbearing to ulcer sites. Patient is to limit weightbearing as much as possible, but if have to focus on heel weightbearing in Surgical shoes with ulcers offloaded. Keep offloaded at all times. Discussed with patient in detail, he appears to be nonadherent with his based on the amount of callus formation left foot ulcer. Offloading plastizote inserts were applied to surgical shoes to float and offload ulceration sites. A motorized scooter prescription was also provided and he will start the process and see if he can get this approved by his insurance. Lower extremity edema is continued and noted and I recommend he elevates and also performs lower extremity muscular contraction hourly while awake. To avoid extra sodium intake throughout his diet also. Angus wraps were applied to bilateral feet and legs. Podiatry will continue to follow weekly, call sooner if needed. To follow-up with the wound healing center at time of discharge. Please not hesitate to call if you have any questions. Irene Claudio DPM, [facility] [phone]
[2020-10-04 16:50] LABS: Bedside Glucose 159 mg/dL (70-110)
--- NOTE | 2020-10-04 17:05 | NURSING ---
PT CALLED OUT, ENTERED ROOM AND PT HAD AMBULATED TO BR & BACK TO BED, TRAIL OF BLOOD NOTED FROM BR TO BED WITH EACH STEP ONTO HIS LT FOOT. PT IS AWARE HE IS ONLY TO BEAR WEIGHT TO HIS HEEL AND VERY LITTLE, BUT NON COMPLIANT AND OBVIOUS THAT HE WAS PUTTING WEIGHT ON PAD OF FOOT. DRESSING CHANGED AND REWRAPPED WITH KERLIX AND FRESH GREY WRAP. PT SITTING IN RECLINER CHAIR WITH LEGS ELEVATED. ENCOURAGED PT TO STAY THERE TO GET BLEEDING TO STOP.
[2020-10-04] MEDS: Tamsulosin HCl 0.4 MG Capsule PO (17:59)
--- NOTE | 2020-10-04 18:06 | NURSING ---
PT STILL IN RECLINER CHAIR BUT FEET BACK DOWN ON FLOOR, NO BLEEDING NOTED THROUGH GREY WRAP.
[2020-10-04 19:52] VITALS: PULSE 76; RESP 18; O2SAT 94
[2020-10-04 21:15] LABS: Bedside Glucose 215 mg/dL (70-110)
--- NOTE | 2020-10-04 23:41 | NURSING ---
Pt requesting to keep am PO meds administration time to 0800
[2020-10-04] MEDS: Acetaminophen 500 MG Tablet 1000 MG PO (23:51)
[2020-10-05 01:39] VITALS: BP 164/68; PULSE 76; RESP 18; TEMP 36.7; O2SAT 94
[2020-10-05 06:25] LABS: Bedside Glucose 213 mg/dL (70-110)
[2020-10-05] MEDS: 0.9% Saline Lock 10 ML Syringe IV ×3 (06:33→22:04)
[2020-10-05] MEDS: Enoxaparin 40 MG/0.4 ML Syringe SC (08:26)
[2020-10-05] MEDS: Gabapentin 600 MG Tablet PO ×3 (08:28→17:49)
[2020-10-05] MEDS: Aspirin E.C. 81 MG Tablet PO (08:28)
[2020-10-05] MEDS: Calcium (Elemental) 500 MG Tablet PO (08:29)
[2020-10-05] MEDS: Atorvastatin Calcium 40 MG Tablet PO (08:29)
[2020-10-05] MEDS: Senna/Docusate Sodium 1 Tablet PO ×2 (08:29→17:48)
[2020-10-05] MEDS: Multivitamins,Therapeutic Tablet 1 TABLET PO (08:29)
[2020-10-05] MEDS: buPROPion (SR) 150 MG Tablet.SA PO ×2 (08:30→17:48)
[2020-10-05] MEDS: Lisinopril 40 MG Tablet PO (08:30)
[2020-10-05 08:34] VITALS: BP 146/70; PULSE 80
--- NOTE | 2020-10-05 08:34 | NURSING ---
new nicotine patch applied to left shoulder. old removed and put in destroyer.
[2020-10-05 10:56] LABS: Bedside Glucose 183 mg/dL (70-110)
[2020-10-05] MEDS: Acetaminophen 500 MG Tablet 1000 MG PO (11:27)
[2020-10-05 12:49] VITALS: PULSE 74; RESP 18; O2SAT 94
[2020-10-05 13:42] VITALS: BP 133/96; PULSE 78; RESP 22; TEMP 36.4; O2SAT 97
[2020-10-05] MEDS: 0.9 % NaCl (Sterile) Posiflush 10 mL IV (15:14)
[2020-10-05 16:35] LABS: Bedside Glucose 190 mg/dL (70-110)
[2020-10-05] MEDS: Tamsulosin HCl 0.4 MG Capsule PO (17:48)
[2020-10-05 21:26] LABS: Bedside Glucose 226 mg/dL (70-110)
[2020-10-05] MEDS: traMADol 50 MG Tablet PO (23:33)
[2020-10-06 04:00] VITALS: BP 190/84; PULSE 90; RESP 18; TEMP 36.6; O2SAT 95
[2020-10-06 06:25] LABS: Bedside Glucose 231 mg/dL (70-110)
[2020-10-06] MEDS: Atorvastatin Calcium 40 MG Tablet PO (08:19)
[2020-10-06] MEDS: Gabapentin 600 MG Tablet PO ×3 (08:19→16:55)
[2020-10-06] MEDS: Enoxaparin 40 MG/0.4 ML Syringe SC (08:19)
[2020-10-06] MEDS: Aspirin E.C. 81 MG Tablet PO (08:20)
[2020-10-06] MEDS: buPROPion (SR) 150 MG Tablet.SA PO ×2 (08:20→16:56)
[2020-10-06] MEDS: Multivitamins,Therapeutic Tablet 1 TABLET PO (08:20)
[2020-10-06] MEDS: Lisinopril 40 MG Tablet PO (08:20)
[2020-10-06] MEDS: Calcium (Elemental) 500 MG Tablet PO (08:21)
[2020-10-06 11:01] LABS: Bedside Glucose 264 mg/dL (70-110)
--- NOTE | 2020-10-06 11:19 | CASEMGMT ---
Addendum entered by Miroslava Dale 10/06/20 11:49: Social Work: SW did give pt the information to pt in regard to the appointment [facility]. SW gave him the number for [facility] at the [facility] to call to set up transport, pt is calling now. EMI Odom Original Note: Social Work SW called the [facility], pt is set up to be seen every Friday at 10:30 am, starting on 10/18/2020. EMI Odom
[2020-10-06] MEDS: Acetaminophen 500 MG Tablet 1000 MG PO (15:09)
[2020-10-06 15:29] VITALS: BP 169/67; PULSE 74; RESP 18; TEMP 36.4; O2SAT 94
[2020-10-06 16:30] LABS: Bedside Glucose 240 mg/dL (70-110)
[2020-10-06] MEDS: Povidone-Iodine Swabstick 1 PACKET TOPICAL (16:55)
[2020-10-06] MEDS: Tamsulosin HCl 0.4 MG Capsule PO (16:55)
[2020-10-06 21:00] LABS: Bedside Glucose 186 mg/dL (70-110)
[2020-10-07 01:44] VITALS: BP 166/69; PULSE 76; RESP 20; TEMP 36.6; O2SAT 97
[2020-10-07] MEDS: 0.9% Saline Lock 10 ML Syringe IV ×4 (06:08→22:46)
[2020-10-07 06:21] LABS: Bedside Glucose 165 mg/dL (70-110)
[2020-10-07] MEDS: buPROPion (SR) 150 MG Tablet.SA PO ×2 (07:52→17:06)
[2020-10-07] MEDS: Lisinopril 40 MG Tablet PO (07:52)
[2020-10-07] MEDS: Calcium (Elemental) 500 MG Tablet PO (07:52)
[2020-10-07] MEDS: Aspirin E.C. 81 MG Tablet PO (07:53)
[2020-10-07] MEDS: Gabapentin 600 MG Tablet PO ×3 (07:53→17:06)
[2020-10-07] MEDS: Atorvastatin Calcium 40 MG Tablet PO (07:53)
[2020-10-07] MEDS: Multivitamins,Therapeutic Tablet 1 TABLET PO (07:53)
[2020-10-07 08:16] LABS: Absolute Lymphocyte Count 1.99 X10^3/uL (0.83-4.51); Absolute Neutrophil Count 7.7 X10^3/uL (2.0-7.7); Basophil# 0.12 X10^3/uL; Basophil% 1.1 % (0-1); Eosinophil# 0.54 X10^3/uL; Eosinophils% 4.8 % (0-5); Hematocrit 42.3 % (40-54); Hemoglobin 13.4 g/dL (13.0-16.5); Lymphocyte # 1.99 X10^3/ul (4.0); Lymphocyte % 17.6 % (19-41); Mean Corp Hgb Conc 31.7 g/dL (32-36); Mean Corpuscular Hgb 28.2 pg (27.0-32.0); Mean Corpuscular Volume 89.1 fL (80-94); Mean Platelet Vol. 10.7 fl (6.2-12.0); Monocyte# 0.83 X10^3/uL; Monocyte% 7.4 % (0-10); NRBC Flagged by Analyzer 0 % (0-5); Neutrophil # 7.66 X10^3/uL (2.7-7.7); Neutrophil % 67.8 % (47-70); Platelet Count 238 K/mm3 (150-450); RBC Distribution Width CV 14.1 % (11.6-14.6); Red Blood Count 4.75 M/mm3 (4.6-6.2); White Blood Count 11.3 K/mm3 (4.4-11.0)
[2020-10-07 08:35] LABS: Erythrocyte Sedimentation Rate 72 mm/hr (0-20)
[2020-10-07 08:50] LABS: AST(SGOT) 11 U/L (15-37); Alanine Aminotransfer ALT/SGPT 26 U/L (16-61); Alkaline Phosphatase 81 U/L (45-117); Anion Gap 6 (5-15); BUN 10 mg/dL (7-18); BUN/Creat Ratio 11.5 RATIO (10-20); Bilirubin, Direct 0.08 mg/dL (0.00-0.30); Calcium,Total 8.5 mg/dL (8.5-10.1); Chloride 107 mmol/L (98-107); Creatinine, Serum 0.87 mg/dL (0.70-1.30); EST Glomerular Filtration Rate 94 mL/min (>60); Est Glom Filt Rate - Afr Amer 114 mL/min (>60); Estimated Creatinine Clearance 99.73 ml/min; Globulin 4.8 g/dL (2.2-4.2); Glucose 153 mg/dL (74-106); Potassium 3.9 mmol/L (3.5-5.1); Protein, Total 7.8 g/dL (6.4-8.2); Sodium Level 138 mmol/L (136-145)
[2020-10-07] MEDS: Enoxaparin 40 MG/0.4 ML Syringe SC (09:26)
[2020-10-07] MEDS: Acetaminophen 500 MG Tablet 1000 MG PO (10:55)
[2020-10-07 11:50] LABS: Bedside Glucose 248 mg/dL (70-110)
[2020-10-07 13:39] VITALS: BP 147/68; PULSE 85; RESP 18; TEMP 37.3; O2SAT 94
[2020-10-07] MEDS: traMADol 50 MG Tablet PO (14:42)
[2020-10-07 16:56] LABS: Bedside Glucose 288 mg/dL (70-110)
[2020-10-07] MEDS: Tamsulosin HCl 0.4 MG Capsule PO (17:06)
[2020-10-07] MEDS: Senna/Docusate Sodium 1 Tablet PO (17:06)
[2020-10-07 17:42] VITALS: TEMP 36.8
[2020-10-07 21:35] LABS: Bedside Glucose 255 mg/dL (70-110)
[2020-10-08 06:21] LABS: Bedside Glucose 261 mg/dL (70-110)
[2020-10-08 06:42] VITALS: BP 136/48; PULSE 75; RESP 18; TEMP 36.9; O2SAT 95
[2020-10-08] MEDS: Aspirin E.C. 81 MG Tablet PO (08:12)
[2020-10-08] MEDS: Gabapentin 600 MG Tablet PO ×3 (08:13→17:36)
[2020-10-08] MEDS: Atorvastatin Calcium 40 MG Tablet PO (08:13)
[2020-10-08] MEDS: Multivitamins,Therapeutic Tablet 1 TABLET PO (08:13)
[2020-10-08] MEDS: Senna/Docusate Sodium 1 Tablet PO (08:15)
[2020-10-08] MEDS: Lisinopril 40 MG Tablet PO (08:15)
[2020-10-08] MEDS: Calcium (Elemental) 500 MG Tablet PO (08:15)
[2020-10-08] MEDS: buPROPion (SR) 150 MG Tablet.SA PO ×2 (08:15→17:36)
[2020-10-08] MEDS: Enoxaparin 40 MG/0.4 ML Syringe SC (08:22)
[2020-10-08] MEDS: 0.9% Saline Lock 10 ML Syringe IV ×2 (10:56→14:31)
[2020-10-08 11:05] LABS: Bedside Glucose 235 mg/dL (70-110)
[2020-10-08 14:04] VITALS: BP 159/56; PULSE 78; RESP 18; TEMP 35.9; O2SAT 94
[2020-10-08 14:34] VITALS: PULSE 72; RESP 18; O2SAT 96
[2020-10-08 16:51] LABS: Bedside Glucose 263 mg/dL (70-110)
[2020-10-08] MEDS: Tamsulosin HCl 0.4 MG Capsule PO (17:35)
[2020-10-09 00:06] LABS: Bedside Glucose 246 mg/dL (70-110)
[2020-10-09 04:00] VITALS: BP 158/74; PULSE 78; RESP 16; TEMP 36.8; O2SAT 94
[2020-10-09 06:10] LABS: Bedside Glucose 246 mg/dL (70-110)
[2020-10-09] MEDS: 0.9% Saline Lock 10 ML Syringe IV ×2 (06:21→21:34)
[2020-10-09] MEDS: Atorvastatin Calcium 40 MG Tablet PO (09:05)
[2020-10-09] MEDS: Gabapentin 600 MG Tablet PO ×3 (09:05→17:04)
[2020-10-09] MEDS: Lisinopril 40 MG Tablet PO (09:05)
[2020-10-09] MEDS: buPROPion (SR) 150 MG Tablet.SA PO ×2 (09:05→17:06)
[2020-10-09] MEDS: Calcium (Elemental) 500 MG Tablet PO (09:06)
[2020-10-09] MEDS: Aspirin E.C. 81 MG Tablet PO (09:06)
[2020-10-09] MEDS: Senna/Docusate Sodium 1 Tablet PO ×2 (09:06→17:04)
[2020-10-09] MEDS: Multivitamins,Therapeutic Tablet 1 TABLET PO (09:06)
[2020-10-09] MEDS: Enoxaparin 40 MG/0.4 ML Syringe SC (09:07)
[2020-10-09 10:51] LABS: Bedside Glucose 263 mg/dL (70-110)
[2020-10-09] MEDS: Acetaminophen 500 MG Tablet 1000 MG PO (11:07)
[2020-10-09 14:53] VITALS: BP 129/53; PULSE 71; RESP 18; TEMP 36.6; O2SAT 95
[2020-10-09 16:31] LABS: Bedside Glucose 213 mg/dL (70-110)
[2020-10-09] MEDS: Tamsulosin HCl 0.4 MG Capsule PO (17:04)
[2020-10-09 21:41] LABS: Bedside Glucose 133 mg/dL (70-110)
[2020-10-10 04:54] VITALS: BP 149/61; PULSE 97; RESP 16; TEMP 36.4; O2SAT 95
[2020-10-10 06:20] LABS: Bedside Glucose 82 mg/dL (70-110)
[2020-10-10] MEDS: Aspirin E.C. 81 MG Tablet PO (08:12)
[2020-10-10] MEDS: Gabapentin 600 MG Tablet PO ×3 (08:12→17:41)
[2020-10-10] MEDS: Atorvastatin Calcium 40 MG Tablet PO (08:13)
[2020-10-10] MEDS: Enoxaparin 40 MG/0.4 ML Syringe SC (08:13)
[2020-10-10] MEDS: Multivitamins,Therapeutic Tablet 1 TABLET PO (08:14)
[2020-10-10] MEDS: Calcium (Elemental) 500 MG Tablet PO (08:15)
[2020-10-10] MEDS: Senna/Docusate Sodium 1 Tablet PO ×2 (08:15→17:41)
[2020-10-10] MEDS: buPROPion (SR) 150 MG Tablet.SA PO ×2 (08:15→17:41)
[2020-10-10] MEDS: Lisinopril 40 MG Tablet PO (08:17)
[2020-10-10] MEDS: Acetaminophen 500 MG Tablet 1000 MG PO (08:20)
[2020-10-10 08:25] VITALS: BP 145/77; PULSE 87
[2020-10-10 10:46] LABS: Bedside Glucose 197 mg/dL (70-110)
--- NOTE | 2020-10-10 10:47 | NURSING ---
wound photo: left foot
--- NOTE | 2020-10-10 10:52 | NURSING ---
wound photo: right lower leg
--- NOTE | 2020-10-10 10:53 | NURSING ---
wound photo: right lateral foot
--- NOTE | 2020-10-10 10:54 | NURSING ---
1035 PICC PULLED FROM RT UPPER UPPER, 52 CM INTACT. DRSG APPLIED TO SITE, NO S/S INFECTION.
[2020-10-10 11:45] VITALS: PULSE 78; RESP 18; O2SAT 94
--- NOTE | 2020-10-10 11:48 | NURSING ---
PT WOULD ONLY LET THIS NURSE GIVE 110 UNITS OF INSULIN FOR BREAKFAST AND LUNCH. REPORTED TO RN
--- NOTE | 2020-10-10 11:50 | NURSING ---
THIS NURSE WENT IN TO PT ROOM TO DO DAILY ASSESSMENT. PT AT TIME STATED NO SHIREEN NOT A PT ANY MORE CAUSE THEY TOOK OUT MY PICC LINE. THIS NURSE EXPLAINED TO PT HE IS STILL A PT LONG HE IS ON THIS FLOOR AND WHY WE DO ASSESSMENTS BUT HE CAN REFUSE. PT STATED I GUESS YOU CAN JUST GO A HEAD AND DO IT THEN. REPORTED TO RN.
[2020-10-10 12:44] VITALS: BP 156/77; PULSE 82; RESP 17; TEMP 36.9; O2SAT 94
--- NOTE | 2020-10-10 14:00 | NURSING ---
pt stated he didnt want anyone calling family,he updates them.
--- NOTE | 2020-10-10 14:08 | NURSING ---
new nicotine patch to right shoulder. pt up walking around with out surgical shoes on. pt refused to let this nurse looked at his butt for assessment.
--- NOTE | 2020-10-10 14:10 | NURSING ---
kim wade/wound nurse changed pt dressings to feet.
[2020-10-10 15:51] LABS: Bedside Glucose 178 mg/dL (70-110)
--- NOTE | 2020-10-10 16:05 | PN_ITS ---
Patient Problems: Active and Suspected Problems (Last Updated 08/28/20 @ 17:[address] Irene Claudio, [facility]) Debility (Acute) Peripheral vascular disease (Suspected) Cellulitis of right lower limb (Acute) Osteomyelitis of right foot (Acute) Subjective: Patient seen and examined bedside. Patient denies any new pedal complaints. P atient denies any nausea, fever, chills, chest pain, shortness of breath, cough, streaking, purulence, vomiting. - Physical Exam Vitals/I&O's: Vital Signs Temp Pulse Resp BP Pulse Ox 98.5 F 82 17 156/77 H 94 10/10/20 12:44 10/10/20 12:44 10/10/20 12:44 10/10/20 12:44 10/10/20 12:44 Oxygen Delivery Method Room Air Weight: 171.203 kg Body Mass Index (BMI) 47.2 Finger Stick Blood Glucose 137 Intake and Output for Last 24 Hours 10/08/20 10/09/20 10/10/20 23:59 23:59 23:59 Intake Total 2776.25 / 2776.25 2799.75 / 2799.75 1732 / 1732 Balance 2776.25 / 2776.25 2799.75 / 2799.75 1732 / 1732 General: Alert, Oriented x3 HEENT: Atraumatic Abdomen: Obese Extremities: No clubbing, No cyanosis, Capillary Refill Less than 3 Seconds, No Calf Tenderness, Diminished Peripheral Pulses, Edema - No bogginess or fluc tuance with mild to moderate edema bilateral lower extremities Skin: Ulcer/ Wound - Skin discontinuity lateral right along surgical incision foot measures 2 x 1.5 x 0.2 cm and predebridement 1.9 x 1.4 x 0.2 cm with granular base and no exposed deep tissue or necrosis. Anterior right leg clustered granular base and fibrous tissue and weeping drainage., - - Plantar left foot measures 1.6 x 1.6 x 0.1 cm and post debridement 1.7 x 1.7 x 0.1 cm with granular base and peripheral callus. Skin is hairless and atrophic. There is no purulence, erythema, streaking, odor, necrosis or deep tissue exposure bilateral lower extremities. Sanguinous drainage noted Musculoskeletal: Muscle Wasting, - - Left TMA, right fifth ray resection Neurological: - - Lack of epicritic sensation consistent with neuropathy Psych/Mental Status: Normal Affect, Appropriate, Alert and oriented to time, place, person, mood and affect Microbiology Past 72 Hours 10/09/20 11:30 Nasal Secretion SARS-CoV-2 Antigen (Rapid) - Final Laboratory Results 10/09/20 16:27: POC Glucose 213 H 10/09/20 21:34: POC Glucose 133 H 10/10/20 06:08: POC Glucose 82 10/10/20 10:40: POC Glucose 197 H 10/10/20 15:45: POC Glucose 178 H Current Medications Acetaminophen (Acetaminophen 500 Mg Tablet) 1,000 mg PO Q6H PRN PRN Reason: Pain Score 1-5 Last Admin: 10/10/20 08:20 Dose: 1,000 mg Documented by: Alteplase, Recombinant (Alteplase 2 Mg/2 Ml Vial) 2 mg IV DAILY PRN PRN PRN Reason: clotted central line port Last Admin: 09/20/20 17:27 Dose: 2 mg Documented by: Aspirin (Aspirin E.C. 81 Mg Tablet) 81 mg PO DAILY@0800 [facility] Last Admin: 10/10/20 08:12 Dose: 81 mg Documented by: Atorvastatin Calcium (Atorvastatin Calcium 40 Mg Tablet) 40 mg PO DAILY@0800 [facility] Last Admin: 10/10/20 08:13 Dose: 40 mg Documented by: Bisacodyl (Bisacodyl 10 Mg Suppository) 10 mg RECTAL DAILY PRN PRN Reason: Constipation Bupropion HCl (Bupropion (Sr) 150 Mg Tablet.Sa) 150 mg PO 0800,1800 [facility] Last Admin: 10/10/20 08:15 Dose: 150 mg Documented by: Calcium Carbonate (Calcium (Elemental) 500 Mg Tablet) 500 mg PO DAILY@0800 [facility] Last Admin: 10/10/20 08:15 Dose: 500 mg Documented by: Enoxaparin Sodium (Enoxaparin 40 Mg/0.4 Ml Syringe) 40 mg SC DAILY@0800 [facility] Last Admin: 10/10/20 08:13 Dose: 40 mg Documented by: Gabapentin (Gabapentin 600 Mg Tablet) 600 mg PO TIDCM [facility] Last Admin: 10/10/20 11:48 Dose: 600 mg Documented by: Heparin Sodium (Beef Lung) (Heparin Pf Lock 10 Units/Ml 50 Units/5 Ml Syringe) 50 units IV UD PRN PRN Reason: PICC Line Heparin Flush Last Admin: 09/06/20 06:46 Dose: 50 units Documented by: Sodium Chloride () 250 mls @ 15 mls/hr IV .[id number] PRN PRN Reason: Saline Flush Last Infusion: 10/10/20 00:44 Dose: Infused Documented by: Sodium Chloride () 250 mls @ 15 mls/hr IV .[id number] PRN PRN Reason: Additional IVPB Infusion Insulin Human Regular (Insulin U-500 Pen) 150 units SC BREAKFAST [facility] Last Admin: 10/10/20 08:10 Dose: 110 units Documented by: Insulin Human Regular (Insulin U-500 Pen) 160 units SC DINNER [facility] Last Admin: 10/09/20 17:11 Dose: 160 units Documented by: Insulin Human Regular (Insulin U-500 Pen) 140 units SC LUNCH [facility] Last Admin: 10/10/20 11:46 Dose: 110 units Documented by: Lisinopril (Lisinopril 40 Mg Tablet) 40 mg PO DAILY@0800 [facility] Last Admin: 10/10/20 08:17 Dose: 40 mg Documented by: Magnesium Hydroxide (Magnesium Hydroxide 30 Ml Udc) 30 ml PO DAILY PRN PRN Reason: Constipation Multivitamins (Multivitamins,Therapeutic Tablet) 1 tablet PO DAILY@0800 [facility] Last Admin: 10/10/20 08:14 Dose: 1 tablet Documented by: Nicotine (Nicotine 21 Mg Patch) 21 mg TD DAILY@0800 [facility] Last Admin: 10/10/20 08:15 Dose: 21 mg Documented by: Polyethylene Glycol (Polyethylene Glycol 3350 17 Gm Packet) 17 gm PO DAILY@0800 [facility] Last Admin: 10/10/20 08:12 Dose: Not Given Documented by: Senna/Docusate Sodium (Senna/Docusate Sodium 1 Tablet) 1 tablet PO 0800,1800 [facility] Last Admin: 10/10/20 08:15 Dose: 1 tablet Documented by: Sodium Chloride (0.9% Saline Lock 10 Ml Syringe) 10 - 40 ml IV UD PRN PRN Reason: Open End PICC Flush Last Admin: 10/09/20 21:34 Dose: 30 ml Documented by: Sodium Chloride (0.9 % Nacl (Sterile) Posiflush 10 Ml) 10 - 40 ml IV UD PRN PRN Reason: Port access or dressing change Last Admin: 10/05/20 15:14 Dose: 10 ml Documented by: Tamsulosin HCl (Tamsulosin Hcl 0.4 Mg Capsule) 0.4 mg PO DAILY@1730 [facility] Last Admin: 10/09/20 17:04 Dose: 0.4 mg Documented by: Tramadol HCl (Tramadol 50 Mg Tablet) 50 mg PO Q6H PRN PRN PRN Reason: Pain Score 6-10 Last Admin: 10/07/20 14:42 Dose: 50 mg Documented by: Medical Necessity - Tobacco Use Smoking Status: Heavy Smoker (>10/day) Tobacco Use: Cigarettes Assessment/Plan All Active Problems (Last Updated 08/28/20 @ 17:[address] Irene Claudio, [facility]) Debility (Acute) Cellulitis of right lower limb (Acute) Osteomyelitis of right foot (Acute) Osteomyelitis right 5th metatarsal s/p 5th ray resection right foot 08/29/[address] Powell with healing ulcer Left foot ulcer down to subcutaneous tissue Right anterior leg ulcer down to subcutaneous tissue TMA left foot Uncontrolled diabetes with neuropathy Other comorbidities include tobacco abuse, obesity, sleep apnea, hyperlipidemia, hypertension, prior stage II kidney disease, BPH Walking impairment Patient seen and examined. Debridement with a 15 blade scalpel and 5 mm curette was performed after verbal consent was obtained the right leg, lateral right forefoot, and plantar medial left foot. This was performed to remove fibrous tissue, devitalized subcutaneous tissue, biofilm, and slough. Hematogenous drainage was noted and pressure was applied to maintain hemostasis. He tolerated this well without the use of local anesthetic due to his neuropathy status. Cleansed ulcerations with normal saline solution. Applied aquacel Ag to ulcerations, along with betadine to the right foot ulcer, right and left leg ulcers - these ulcerations were covered with gauze, applied kerlix and angus to bilateral foot. Continue with antibiotic therapy per ID service. He is scheduled to finish his course of antibiotics tomorrow and then will be discharged. Again, no weightbearing to ulcer sites. Patient is to limit weightbearing as much as possible, but if have to focus on heel weightbearing in Surgical shoes with ulcers offloaded. Keep offloaded at all times. Discussed with patient in detail, he appears to be nonadherent with his based on the amount of callus formation left foot ulcer which has worsened since previous exam. Lower extremity edema is continued and noted and I recommend he elevates and also performs lower extremity muscular contraction hourly while awake. To avoid extra sodium intake throughout his diet also. Angus wraps were applied to bilateral feet and legs. Discussed with patient again the importance of offloading. Noted that upon discharge and return to care at the wound care clinic that it is likely he will resume total contact casting to assist with healing of ulceration to left foot To follow-up with the wound healing center at time of discharge. Please not hesitate to call if you have any questions.
[2020-10-10] MEDS: Tamsulosin HCl 0.4 MG Capsule PO (17:40)
--- NOTE | 2020-10-10 18:03 | NURSING ---
IN TO SEE PT AND DEBRIDED LEFT FOOT.
--- NOTE | 2020-10-10 23:23 | PCA ---
refused to let check his blood sugar pt.stated not doing anymore going home tomorrow
[2020-10-11] MEDS: Multivitamins,Therapeutic Tablet 1 TABLET PO (08:27)
[2020-10-11] MEDS: Gabapentin 600 MG Tablet PO (08:28)
[2020-10-11] MEDS: Aspirin E.C. 81 MG Tablet PO (08:28)
[2020-10-11] MEDS: Atorvastatin Calcium 40 MG Tablet PO (08:28)
[2020-10-11] MEDS: buPROPion (SR) 150 MG Tablet.SA PO (08:28)
[2020-10-11] MEDS: Calcium (Elemental) 500 MG Tablet PO (08:28)
[2020-10-11] MEDS: Enoxaparin 40 MG/0.4 ML Syringe SC (08:30)
[2020-10-11] MEDS: Senna/Docusate Sodium 1 Tablet PO (08:30)
[2020-10-11 08:31] LABS: Bedside Glucose 291 mg/dL (70-110)
[2020-10-11] MEDS: Lisinopril 40 MG Tablet PO (08:34)
--- NOTE | 2020-10-11 10:50 | PCA ---
patient refused to get his blood sugar checked before lunch. he told me that he will be being discharged soon.
--- NOTE | 2020-10-11 14:46 | NURSING ---
Pt left with out receiving pt's Medication list/orders. Pt was walking past nursing station with his bags of personal belongings to leave, staff asked if he received his paperwork and was discharged. Pt stated yes I have received my paperwork. FLOOR REFINISHER saw pt walking by himself to elevator carrying his own bags and decided to get on the elevator with patient and ask where he was going, pt stated he was going home his ride was here. FLOOR REFINISHER asked pt if he got everything and if someone went over his paperwork he said yes. When FLOOR REFINISHER got to front entrance with patient, transport van was waiting to pick pt up.
== END 2020-10-11 11:00 | disposition home health service (06) | DRG 623 ==
PROVIDERS: Internal Medicine Infectious Disease; Admitting Provider Family Medicine Geriatric Medicine; PCP Family Medicine Geriatric Medicine; Visit Provider Family Medicine Geriatric Medicine
DX: E11.69 Type 2 diabetes mellitus with other specified complication (principal); L03.115 Cellulitis of right lower limb; M86.171 Other acute osteomyelitis, right ankle and foot; Z68.42 Body mass index [BMI] 45.0-49.9, adult; E11.621 Type 2 diabetes mellitus with foot ulcer; L97.519 Non-pressure chronic ulcer of other part of right foot with unspecified severity; Z23 Encounter for immunization; E11.42 Type 2 diabetes mellitus with diabetic polyneuropathy; N18.2 Chronic kidney disease, stage 2 (mild); I12.9 Hypertensive chronic kidney disease with stage 1 through stage 4 chronic kidney disease, or unspecified chronic kidney disease; E11.22 Type 2 diabetes mellitus with diabetic chronic kidney disease; E11.51 Type 2 diabetes mellitus with diabetic peripheral angiopathy without gangrene; N40.0 Benign prostatic hyperplasia without lower urinary tract symptoms; E78.2 Mixed hyperlipidemia; G47.33 Obstructive sleep apnea (adult) (pediatric); E66.01 Morbid (severe) obesity due to excess calories; F32.9 Major depressive disorder, single episode, unspecified; B95.62 Methicillin resistant Staphylococcus aureus infection as the cause of diseases classified elsewhere; F17.210 Nicotine dependence, cigarettes, uncomplicated; B95.2 Enterococcus as the cause of diseases classified elsewhere; B96.1 Klebsiella pneumoniae [K. pneumoniae] as the cause of diseases classified elsewhere; B95.5 Unspecified streptococcus as the cause of diseases classified elsewhere; B96.89 Other specified bacterial agents as the cause of diseases classified elsewhere; Z89.432 Acquired absence of left foot
CPT/HCPCS: 36415; 36569; 71046; 80048; 80076; 80202; 82962; 85025; 85652; 86480; 87426; 87635; 97110; 97116; 97162; 97165; 97530; 97535; 97802; 99406; G0009; J2997; J7040; J7050; 90670; A4216; J0295; U0003

== ENCOUNTER → 2020-09-26 08:47 | Outpatient (CLI) | payer MEDICARE, MEDICAID, SELFPAY ==
[2020-09-01 20:00] VITALS: BMI 47.2
--- NOTE | 2020-09-26 09:41 | VDLE_ITS ---
Reason For Study: Swelling Procedure LEFT This is a venous duplex using B-mode, color GSV is normal. flow and spectral Doppler. CFV is compressible, spontaneous, phasic, Exam performed portable in patient room. competent, and demonstrates normal A preliminary report was called and/or faxed augmentation. to TCU. FV is compressible, spontaneous, phasic, competent and demonstrates normal augmentation. POP V is compressible, spontaneous, phasic, competent and demonstrates normal augmentation. T/P Trunk is compressible. PTV is compressible. LT PerV is compressible. Interpretation Summary Deep veins of the left lower extremity are patent and compressible segmentally. There is no evidence of left lower extremity deep vein thrombosis. Valvular competence appears intact within the proximal deep venous system on the left . The left great saphenous vein appears patent and compressible segmentally. Ordering Physician: Jaime Meyer Referring Physician: Jaime Meyer Chi Performed By: Madai Crockett RVT
== END ==
PROVIDERS: PCP Family Medicine Geriatric Medicine; Visit Provider Family Medicine Geriatric Medicine
DX: R22.42 Localized swelling, mass and lump, left lower limb (principal)
CPT/HCPCS: 93971

== ENCOUNTER 2020-10-18 10:13 | Outpatient (RCR) | payer MEDICARE, SELFPAY ==
[2020-09-22 00:20] VITALS: BP 155/64; PULSE 99; RESP 20; TEMP 36.6
[2020-10-18 10:56] VITALS: BP 149/68; PULSE 96; RESP 22; TEMP 36.9; BMI 47.2
--- NOTE | 2020-10-18 15:45 | PN.PCM_ITS ---
(1) Diabetic polyneuropathy Status: Chronic Code(s): E11.42 - Type 2 diabetes mellitus with diabetic polyneuropathy (2) Chronic ulcer of right foot with fat layer exposed Status: Chronic Code(s): L97.512 - Non-pressure chronic ulcer of other part of right foot with fat layer exposed (3) Tobacco abuse Status: Chronic Code(s): Z72.0 - Tobacco use (4) Chronic ulcer of left foot with fat layer exposed Status: Chronic Code(s): L97.522 - Non-pressure chronic ulcer of other part of left foot with fat layer exposed (5) Delayed wound healing Status: Chronic Code(s): T14.8XXD - Other injury of unspecified body region, subsequent encounter (6) Difficulty in walking, not elsewhere classified Status: Chronic Code(s): R26.2 - Difficulty in walking, not elsewhere classified (7) Tobacco abuse counseling Status: Chronic Code(s): Z71.6 - Tobacco abuse counseling (8) Osteomyelitis of right foot Status: Resolved Code(s): M86.9 - Osteomyelitis, unspecified (9) Localized edema Status: Chronic Code(s): R60.0 - Localized edema (10) 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 Right foot ulcer History of Wound: This 65-year-old male with multiple comorbidities was seen today for left foot ulcer. His left foot ulcer onset was 12-07-2019. He is previously known to me and had a left transmetatarsal amputation performed previously. He denies diarrhea, rash, fever, chill, nausea, vomiting. He completed hyperbaric oxygen therapy sessions. He denies redness or odor. He continues to walk in his regular shoe although this is not going to allow healing. He denies calf pain. He was recently discharged from the transitional care unit for osteomyelitis management of the right foot. He also had a fifth ray resection performed by Dr. Powell. He continues to struggle with edema management, smoking cessation, nutrition, and maintaining reduced weightbearing activity. He is trying to get approved for a [employer] scooter. Progress of Wound: Stable - Physical Exam Vital Signs Temp Pulse Resp BP 98.5 F 96 22 H 149/68 H 10/18/20 10:56 10/18/20 10:56 10/18/20 10:56 10/18/20 10:56 General: Alert, Oriented x3, Cooperative, No apparent distress HEENT: Atraumatic Extremities: No cyanosis, Capillary Refill Less than 3 Seconds, No Calf Tenderness - negative agustina and stafford signs bilateral, Diminished Peripheral Pulses, Edema - Moderate lateral lower extremity, - Skin: Ulcer/ Wound - no purulence, no erythema, no streaking, no odor, no infection. Increased ulcers is noted compared to his last series of visits while staying in the transitional care unit. There is no necrosis or deep tissue exposure. Wound Measurements and Assessment WC - Nurse 1 - General Ulcer Measurement Start: 10/18/20 10:44 Freq: Status: Active Protocol: Activity Type Activity Date Activity User E-Sign Co-Sign Detail Recorded Client Recorded Date Recorded By Document 10/18/20 10:56 DL [id number] 10/18/20 11:21 DL 10/18/20 10:56 Wound Center Nurse 1 [Ulcer Assessment] #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 -Current Size (cm) - Length 16 -Current Size (cm) - Width 15 -Current Size (cm) - Depth 0.2 -Total Square Cm 240 -Photo Taken Yes #9 right lateral plantar -Current Size (cm) - Length 1.3 -Current Size (cm) - Width 1 -Current Size (cm) - Depth 0.1 -Total Square Cm 1.3 -Photo Taken Yes -Circular Undermining No -Exudate Amt Medium -Exudate Type Serosanguineous -Wound Margin Thickened -Granulation Amt Medium (34-66%) -Granulation Quality [place] -Necrosis Amt Medium (34-66%) -Necrotic Tissue Type Adherent Slough -Structure Exposed N/A -Texture (Maria M-wound Skin Appearance) Scarring -Moisture (Maria M-wound Skin Appearance Dry/Scaly ) -Color (Maria M-wound Skin Appearance) Hemosiderin Staining -Temperature (Maria M-wound Skin No Abnormality Appearance) (Pt Warm) -Tenderness on Palpation (Maria M-wound No Skin Appearance) -Ulcer Cleansing Wound Cleanser -Foul Odor after Cleansing No -Anesthetic Used 4% Lidocaine Solution #1 Left Plantar medial -Current Size (cm) - Length 2.8 -Current Size (cm) - Width 2.2 -Current Size (cm) - Depth 0.4 -Total Square Cm 6.16 -Photo Taken Yes -Undermining/Tunneling Starts (O' 3 clock) -Undermining/Tunneling Ends (O'clock) 5 -Maximum Distance (cm) 0.4 -Exudate Amt Medium -Exudate Type Serosanguineous -Wound Margin Thickened -Granulation Amt Medium (34-66%) -Granulation [place] -Necrosis Amt Medium (34-66%) -Necrotic Tissue Type Adherent Slough -Texture (Maria M-wound Skin Appearance) Scarring -Moisture (Maria M-wound Skin Appearance Dry/Scaly ) -Color (Maria M-wound Skin Appearance) Hemosiderin Staining -Temperature (Maria M-wound Skin No Abnormality Appearance) (Pt Warm) -Tenderness on Palpation (Maria M-wound No Skin Appearance) -Ulcer Cleansing Wound Cleanser -Foul Odor after Cleansing No -Anesthetic Used 4% Lidocaine Solution WC - Nurse 2 - General Ulcer CM Notes Start: 10/18/20 10:44 Freq: Status: Active Protocol: Activity Type Activity Date Activity User E-Sign Co-Sign Detail Recorded Client Recorded Date Recorded By Document 10/18/20 11:49 [email or web address] [id number] 10/18/20 11:54 CASSY 10/18/20 11:49 Wound Center Nurse 2 [Procedure/Treatment] #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 -Time 11:50 -Correct Patient Yes -Correct Side, Site, Position Yes -Correct Procedure Yes -Procedure Performed Yes -Type of Procedure Debridement -Clinical Debridement Subcutaneous -Tissue Removed Subcutaneous -Post Debridement (cm) - Length 8 -Post Debridement (cm) - Width 1 -Post Debridement (cm) - Depth 0.1 -Total Square (Post) (cm) 8 -Area of Debridement (cm) - Length 8 -Area of Debridement (cm) - Width 1 -Total Square (Area) (cm) 8 -Tunneling No -Undermining/Tunneling No -Circular Undermining No -Wound/Ulcer Outcome Not Healed -Ulcer Cleansing Rinsed/ Irrigated with Saline -Foul Odor after Cleansing No -Bioengineered Tissue No -Bleeding Controlled with Pressure -Offloading Yes -Type of Offloading Surgical Shoe -Treatment Response Procedure Tolerated Well -Debridement - Subq, 1st 20sq cm Yes #9 right lateral plantar -Time 11:50 -Correct Patient Yes -Correct Side, Site, Position Yes -Correct Procedure Yes -Procedure Performed Yes -Type of Procedure Debridement -Clinical Debridement Subcutaneous -Tissue Removed Subcutaneous -Post Debridement (cm) - Length 2.3 -Post Debridement (cm) - Width 1.2 -Post Debridement (cm) - Depth 0.4 -Total Square (Post) (cm) 2.76 -Area of Debridement (cm) - Length 2.3 -Area of Debridement (cm) - Width 1.2 -Total Square (Area) (cm) 2.76 -Tunneling No -Undermining/Tunneling No -Circular Undermining No -Wound/Ulcer Outcome Not Healed -Ulcer Cleansing Rinsed/ Irrigated with Saline -Foul Odor after Cleansing No -Bioengineered Tissue No -Bleeding Controlled with Pressure -Offloading Yes -Type of Offloading Surgical Shoe -Treatment Response Procedure Tolerated Well -Debridement - Subq, 20sq cm No #1 Left Plantar medial -Time 11:50 -Correct Patient Yes -Correct Side, Site, Position Yes -Correct Procedure Yes -Procedure Performed Yes -Type of Procedure Debridement -Clinical Debridement Subcutaneous -Tissue Removed Subcutaneous -Post Debridement (cm) - Length 2.8 -Post Debridement (cm) - Width 2.3 -Post Debridement (cm) - Depth 0.4 -Total Square (Post) (cm) 6.44 -Area of Debridement (cm) - Length 2.8 -Area of Debridement (cm) - Width 2.3 -Total Square (Area) (cm) 6.44 -Tunneling No -Undermining/Tunneling No -Circular Undermining No -Wound/Ulcer Outcome Not Healed -Ulcer Cleansing Rinsed/ Irrigated with Saline -Foul Odor after Cleansing No -Bioengineered Tissue No -Bleeding Controlled with Pressure -Offloading Yes -Type of Offloading Surgical Shoe -Treatment Response Procedure Tolerated Well -Debridement - Subq, 20sq cm No [See Physician Procedure note for Specifics] Pain Scale: 0-10 Numeric [Pain] -Is Patient Pain Free? Yes WC - Nurse 3 - General Ulcer D/C NN Start: 10/18/20 10:44 Freq: Status: Active Protocol: Activity Type Activity Date Activity User E-Sign Co-Sign Detail Recorded Client Recorded Date Recorded By Document 10/18/20 12:07 [id number] 10/18/20 12:08 DARRELL 10/18/20 12:07 Wound Care Nurse 3 [Wound Dressing] #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 -Primary Dressing Applied C Hydrogel ($), [place] -Primary Dressing Covered/Secured Dry Gauze,Dry with Gauze & Roll Gauze,Secured with Tape -[place] 1 #9 right lateral plantar -Ulcer Cleansing Rinsed/ Irrigated with Saline -Foul Odor after Cleansing No -Primary Dressing Covered/Secured Dry Gauze,Dry with Gauze & Roll Gauze,Secured with Tape #1 Left Plantar medial -Ulcer Cleansing Rinsed/ Irrigated with Saline -Foul Odor after Cleansing No -Primary Dressing Covered/Secured Dry Gauze,Dry with Gauze & Roll Gauze,Secured with Tape Pain Scale: 0-10 Numeric [Pain] -Is Patient Pain Free? Yes WC - Visit Discharge [Visit Discharge Information] -Discharge Condition Stable -Ambulatory Status Walker -Transportation Private Auto Musculoskeletal: No Tenderness to Palpation of Joints or Extremities, Muscle Wasting, - - Fifth ray resection right. Transmetatarsal amputation left. Neurological: - - Lack of normal epicritic sensation light touch is consistent with neuropathy status. Debridement Note Post-Debridement Measurements/Treatment WC - Nurse 2 - General Ulcer CM Notes Start: 10/18/20 10:44 Freq: Status: Active Protocol: Activity Type Activity Date Activity User E-Sign Co-Sign Detail Recorded Client Recorded Date Recorded By Document 10/18/20 11:49 [id number] 10/18/20 11:54 CASSY 10/18/20 11:49 Wound Center Nurse 2 #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 -Time 11:50 -Correct Patient Yes -Correct Side, Site, Position Yes -Correct Procedure Yes -Procedure Performed Yes -Type of Procedure Debridement -Clinical Debridement Subcutaneous -Tissue Removed Subcutaneous -Post Debridement (cm) - Length 8 -Post Debridement (cm) - Width 1 -Post Debridement (cm) - Depth 0.1 -Total Square (Post) (cm) 8 -Area of Debridement (cm) - Length 8 -Area of Debridement (cm) - Width 1 -Total Square (Area) (cm) 8 -Tunneling No -Undermining/Tunneling No -Circular Undermining No -Wound/Ulcer Outcome Not Healed -Ulcer Cleansing Rinsed/ Irrigated with Saline -Foul Odor after Cleansing No -Bioengineered Tissue No -Bleeding Controlled with Pressure -Offloading Yes -Type of Offloading Surgical Shoe -Treatment Response Procedure Tolerated Well -Debridement - Subq, 1st 20sq cm Yes #9 right lateral plantar -Time 11:50 -Correct Patient Yes -Correct Side, Site, Position Yes -Correct Procedure Yes -Procedure Performed Yes -Type of Procedure Debridement -Clinical Debridement Subcutaneous -Tissue Removed Subcutaneous -Post Debridement (cm) - Length 2.3 -Post Debridement (cm) - Width 1.2 -Post Debridement (cm) - Depth 0.4 -Total Square (Post) (cm) 2.76 -Area of Debridement (cm) - Length 2.3 -Area of Debridement (cm) - Width 1.2 -Total Square (Area) (cm) 2.76 -Tunneling No -Undermining/Tunneling No -Circular Undermining No -Wound/Ulcer Outcome Not Healed -Ulcer Cleansing Rinsed/ Irrigated with Saline -Foul Odor after Cleansing No -Bioengineered Tissue No -Bleeding Controlled with Pressure -Offloading Yes -Type of Offloading Surgical Shoe -Treatment Response Procedure Tolerated Well -Debridement - Subq, 1st 20sq cm No #1 Left Plantar medial -Time 11:50 -Correct Patient Yes -Correct Side, Site, Position Yes -Correct Procedure Yes -Procedure Performed Yes -Type of Procedure Debridement -Clinical Debridement Subcutaneous -Tissue Removed Subcutaneous -Post Debridement (cm) - Length 2.8 -Post Debridement (cm) - Width 2.3 -Post Debridement (cm) - Depth 0.4 -Total Square (Post) (cm) 6.44 -Area of Debridement (cm) - Length 2.8 -Area of Debridement (cm) - Width 2.3 -Total Square (Area) (cm) 6.44 -Tunneling No -Undermining/Tunneling No -Circular Undermining No -Wound/Ulcer Outcome Not Healed -Ulcer Cleansing Rinsed/ Irrigated with Saline -Foul Odor after Cleansing No -Bioengineered Tissue No -Bleeding Controlled with Pressure -Offloading Yes -Type of Offloading Surgical Shoe -Treatment Response Procedure Tolerated Well -Debridement - Subq, 1st 20sq cm No Pain Scale: 0-10 Numeric Is Patient Pain Free? Yes WC - Nurse 3 - General Ulcer D/C NN Start: 10/18/20 10:44 Freq: Status: Active Protocol: Activity Type Activity Date Activity User E-Sign Co-Sign Detail Recorded Client Recorded Date Recorded By Document 10/18/20 12:07 DARRELL [id number] 10/18/20 12:08 DARRELL 10/18/20 12:07 Wound Care Nurse 3 #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 -Primary Dressing Applied C Hydrogel ($), [place] -Primary Dressing Covered/Secured with Dry Gauze,Dry Gauze & Roll Gauze,Secured with Tape -[place] 1 #9 right lateral plantar -Ulcer Cleansing Rinsed/ Irrigated with Saline -Foul Odor after Cleansing No -Primary Dressing Covered/Secured with Dry Gauze,Dry Gauze & Roll Gauze,Secured with Tape #1 Left Plantar medial -Ulcer Cleansing Rinsed/ Irrigated with Saline -Foul Odor after Cleansing No -Primary Dressing Covered/Secured with Dry Gauze,Dry Gauze & Roll Gauze,Secured with Tape Pain Scale: 0-10 Numeric Is Patient Pain Free? Yes WC - Visit Discharge Discharge Condition Stable Ambulatory Status Walker Transportation Private Auto Wound debrided: plantar medial foot Laterality: Left Wound Grade/Stage: grade 3 Type of Debridement: Excisional debridement Anesthesia Used: 5% Lidocaine Gel Depth: in the subcutaneous layer Percentage of wound debrided: 100 Instrument Used: #15 blade Tissue Removed: fibrous, devitalized subcutaneous, biofilm, slough Severity: Fat Layer Exposed Amount of bleeding with debridement: Mild Bleeding Controlled with: Pressure Patient tolerated procedure well - Additional Wound Wound debrided: lateral forefoot Laterality: Left Wound Grade/Stage: grade 1 (prior surgical site) Type of Debridement: Excisional debridement Anesthesia Used: 5% Lidocaine Gel Depth: in the subcutaneous layer Percentage of wound debrided: 100 Instrument Used: #15 blade Tissue Removed: fibrous, devitalized subcutaneous, biofilm, slough Severity: Fat Layer Exposed Amount of bleeding with debridement: Mild Bleeding Controlled with: Pressure Patient tolerated procedure: Patient tolerated procedure well - Additional Wound Wound debrided: anterior leg cluster Laterality: Right Wound Grade/Stage: grade 1 Type of Debridement: Excisional debridement Anesthesia Used: 5% Lidocaine Gel Depth: in the subcutaneous layer Percentage of wound debrided: 100 Instrument Used: #15 blade Tissue Removed: fibrous, devitalized subcutaneous, biofilm, slough Severity: Fat Layer Exposed Amount of bleeding with debridement: Mild Bleeding Controlled with: Pressure Patient tolerated procedure: Patient tolerated procedure well Assessment/Plan Active Problems (Last Updated 08/28/20 @ 17:[address] Irene Claudio, SUZETTE) Diabetic polyneuropathy (Chronic) Chronic ulcer of right foot with fat layer exposed (Chronic) Tobacco abuse (Chronic) Chronic ulcer of left foot with fat layer exposed (Chronic) Delayed wound healing (Chronic) Difficulty in walking, not elsewhere classified (Chronic) Tobacco abuse counseling (Chronic) Assessment: Left plantar medial foot ulcer, [place] Grade 3 -stable. Right foot ulcer w/ fat layer exposed at s/p fifth ray resection site (grade 1). Morbid obesity. Diabetes type 2 with complications. Walking difficulty and impairment. Delayed healing Plan: I reviewed and discussed his case. Subcutaneous excisional debridement was performed as noted in the clinical panel to the left foot and right foot. His ulcer status is stable to bilateral foot however increased ulcer size has been noted since he has been discharged home. His leg edema is slightly more compared to when he was in the transitional care unit. To elevate and reduce salt intake. To continue with Tubigrip compression garments. He is recently not been using these and he will resume use today. Compliance was discussed. This is imperative to proceed in a positive direction in regards to his wound healing. I discussed the need for serious offloading for limb salvage purposes. He has tried various shoes and walking boots. He has struggled with the use of such as a walker of a knee roller. A motorized scooter is also an option and at this time I recommend this. This is medically necessary to offload bilateral lower extremities which is very challenging performed with compliance. His noninvasive vascular studies were reviewed from which were normal and intervention was previously not recommended. I advised him to follow-up with all of Dr. Bonilla's recommendations to optimize his healing process. He has for help scheduling this because he has not been able to do this. He has recently been seen and intervention is planned for arterial optimization. An updated bilateral duplex was also recommended to help with planning. To continue to work on decreasing glucose levels. He has a history of hyperglycemia. To continue follow-up with primary care physician. To continue to follow-up with nutritional services. To continue to follow-up as advised. He is currently making adjustments with his eating habits. He also follows up with hydramatic mechanic, Dr. Arteaga who is working with him to reduce his hemoglobin A1c with medication and behavioral changes. Smoking cessation was discussed in detail and he was advised on the healing impairment associated with this. To continue with his smoking cessation program. I also recommend discontinuation of nicotine products for this also contributes to small vessel contraction. I answered all of his questions today. . To return to clinic in 1 week or call sooner if questions, concerns, or progressive worsening.
== END 2020-10-22 23:59 ==
LOC: WC 10:13
PROVIDERS: PCP Family Medicine Geriatric Medicine; Referring Provider Podiatrist; Visit Provider Podiatrist
DX: E11.621 Type 2 diabetes mellitus with foot ulcer (principal); L97.512 Non-pressure chronic ulcer of other part of right foot with fat layer exposed; E11.42 Type 2 diabetes mellitus with diabetic polyneuropathy; L97.522 Non-pressure chronic ulcer of other part of left foot with fat layer exposed; E66.01 Morbid (severe) obesity due to excess calories; R26.2 Difficulty in walking, not elsewhere classified; Z72.0 Tobacco use; R60.0 Localized edema; L97.912 Non-pressure chronic ulcer of unspecified part of right lower leg with fat layer exposed
CPT/HCPCS: 11042; 99213; G0463

== ENCOUNTER → 2020-10-18 14:10 | Outpatient (CLI) | payer MEDICARE, MEDICAID, SELFPAY ==
[2020-10-18 10:56] VITALS: BMI 47.2
--- NOTE | 2020-10-18 14:18 | RAD_ITS ---
STUDY: X-RAY - RIGHT KNEE REASON FOR EXAM: Male, 65 years old. Pt states fell onto right knee x 1 week ago, pain medial side of patella on right knee, was swollen TECHNIQUE: 3 view(s) of the knee. COMPARISON: None. FINDINGS: Normal visualized distal femur. Normal visualized proximal tibia and fibula. Normal proximal tibiofibular articulation. There is mild degenerative arthrosis of the medial femorotibial compartment. Normal lateral femorotibial compartment. There is moderate degenerative arthrosis of the patellofemoral articulation. Small joint effusion. RAD/Knee 4 or More Views IMPRESSION: Degenerative arthrosis. Small joint effusion. Electronically Signed: John Gibbons MD at 15:24 EST , Service support ,
== END ==
PROVIDERS: PCP Family Medicine Geriatric Medicine; Referring Provider Family Medicine Geriatric Medicine; Visit Provider Family Medicine Geriatric Medicine
DX: M25.569 Pain in unspecified knee (principal); L97.522 Non-pressure chronic ulcer of other part of left foot with fat layer exposed; E11.42 Type 2 diabetes mellitus with diabetic polyneuropathy; L97.512 Non-pressure chronic ulcer of other part of right foot with fat layer exposed; Z72.0 Tobacco use; R26.2 Difficulty in walking, not elsewhere classified
CPT/HCPCS: 11042; 73564; 99213; G0463

== ENCOUNTER → 2020-10-25 14:04 | Outpatient (CLI) | payer MEDICARE, MEDICAID, SELFPAY ==
[2020-10-25 10:38] VITALS: BMI 47.2
[2020-10-25 16:05] LABS: Absolute Lymphocyte Count 2.13 X10^3/uL (0.83-4.51); Absolute Neutrophil Count 11.2 X10^3/uL (2.0-7.7); Basophil# 0.12 X10^3/uL; Basophil% 0.8 % (0-1); Eosinophil# 0.45 X10^3/uL; Hemoglobin 12.7 g/dL (13.0-16.5); Lymphocyte # 2.13 X10^3/ul (4.0); Lymphocyte % 14.2 % (19-41); Mean Corp Hgb Conc 30.2 g/dL (32-36); Mean Corpuscular Volume 89.2 fL (80-94); Monocyte# 0.85 X10^3/uL; Monocyte% 5.7 % (0-10); NRBC Flagged by Analyzer 0 % (0-5); Neutrophil % 74.7 % (47-70); Platelet Count 257 K/mm3 (150-450); RBC Distribution Width CV 15.1 % (11.6-14.6); RBC Distribution Width SD 48.8 fl (35.1-43.9); Red Blood Count 4.71 M/mm3 (4.6-6.2)
[2020-10-25 17:00] LABS: ALB/GLOB Ratio 0.7 RATIO (0.9-2.4); AST(SGOT) 12 U/L (15-37); Alanine Aminotransfer ALT/SGPT 33 U/L (16-61); Albumin, Serum 3.1 g/dL (3.2-5.0); Alkaline Phosphatase 101 U/L (45-117); Anion Gap 5 (5-15); BUN 18 mg/dL (7-18); Calcium,Total 8.9 mg/dL (8.5-10.1); Chloride 105 mmol/L (98-107); Creatinine, Serum 0.82 mg/dL (0.70-1.30); EST Glomerular Filtration Rate 101 mL/min (>60); Est Glom Filt Rate - Afr Amer 122 mL/min (>60); Globulin 4.4 g/dL (2.2-4.2); Glucose 235 mg/dL (74-106); Potassium 4.4 mmol/L (3.5-5.1); Protein, Total 7.5 g/dL (6.4-8.2); Sodium Level 136 mmol/L (136-145); Thyroid Stim Hormone (TSH) 2.52 uIU/mL (0.358-3.74)
== END ==
PROVIDERS: PCP Family Medicine Geriatric Medicine; Visit Provider Family Medicine Geriatric Medicine
DX: I10 Essential (primary) hypertension (principal); F52.8 Other sexual dysfunction not due to a substance or known physiological condition; E11.9 Type 2 diabetes mellitus without complications; S90.821A Blister (nonthermal), right foot, initial encounter; S99.921A Unspecified injury of right foot, initial encounter; B35.1 Tinea unguium; G60.8 Other hereditary and idiopathic neuropathies; E11.42 Type 2 diabetes mellitus with diabetic polyneuropathy; R60.0 Localized edema; L97.912 Non-pressure chronic ulcer of unspecified part of right lower leg with fat layer exposed; F17.210 Nicotine dependence, cigarettes, uncomplicated; E66.9 Obesity, unspecified; L97.522 Non-pressure chronic ulcer of other part of left foot with fat layer exposed; R26.2 Difficulty in walking, not elsewhere classified; L97.513 Non-pressure chronic ulcer of other part of right foot with necrosis of muscle; Z89.432 Acquired absence of left foot
CPT/HCPCS: 11042; 36415; 80053; 84403; 84443; 85025

== ENCOUNTER 2020-11-15 13:45 | Outpatient (RCR) | payer MEDICARE, MEDICAID, SELFPAY ==
[2020-10-23 00:20] VITALS: BP 149/68; PULSE 96; RESP 22; TEMP 36.9
[2020-10-25 10:38] VITALS: BP 173/58; PULSE 99; RESP 22; TEMP 36.6; BMI 47.2
--- NOTE | 2020-10-25 12:05 | PN.PCM_ITS ---
(1) Blister (nonthermal), right foot, initial encounter Status: Acute Code(s): S90.821A - Blister (nonthermal), right foot, initial encounter (2) Trauma of toe of right foot Status: Acute Qualifiers: Encounter type: initial encounter Qualified Code(s): S99.921A - Unspecified injury of right foot, initial encounter Code(s): S99.921A - Unspecified injury of right foot, initial encounter (3) Tinea unguium Status: Chronic Code(s): B35.1 - Tinea unguium (4) Other hereditary and idiopathic neuropathies Status: Chronic Code(s): G60.8 - Other hereditary and idiopathic neuropathies (5) Diabetic polyneuropathy Status: Chronic Code(s): E11.42 - Type 2 diabetes mellitus with diabetic polyneuropathy (6) Localized edema Status: Chronic Code(s): R60.0 - Localized edema (7) 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 Status: Chronic Code(s): L97.912 - Non-pressure chronic ulcer of unspecified part of right lower leg with fat layer exposed (8) Tobacco dependence due to cigarettes Status: Chronic Code(s): F17.210 - Nicotine dependence, cigarettes, uncomplicated (9) Obesity Status: Chronic Qualifiers: Code(s): E66.9 - Obesity, unspecified (10) Chronic ulcer of left foot with fat layer exposed Status: Chronic Code(s): L97.522 - Non-pressure chronic ulcer of other part of left foot with fat layer exposed (11) Difficulty in walking, not elsewhere classified Status: Chronic Code(s): R26.2 - Difficulty in walking, not elsewhere classified (12) History of transmetatarsal amputation of left foot Status: Chronic Code(s): Z89.432 - Acquired absence of left foot (13) 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 right leg ulcer. New right foot injury History of Wound: This 65-year-old male with multiple comorbidities was seen today for left foot ulcer. His left foot ulcer onset was 12-07-2019. He is previously known to me and had a left transmetatarsal amputation performed previously. He denies diarrhea, rash, fever, chill, nausea, vomiting. He completed hyperbaric oxygen therapy sessions. He denies redness or odor. He continues to walk in his regular shoe although this is not going to allow healing. He denies calf pain. He was recently discharged from the transitional care unit for osteomyelitis management of the right foot. He also had a fifth ray resection performed by Dr. Powell. He continues to struggle with edema management, smoking cessation, nutrition, and maintaining reduced weightbearing activity. He is trying to get approved for a motorized scooter. He reports that he had an injury. He ran into a chair in his kitchen and he developed a blister and his toenail and peritoenail area started turning white. He denies active drainage. This occurred within the past week. He asks for help safely trimming his toenails that he cannot safely trim on his own. he has neuropathy and having his nails trimmed by a non professional is not recommended. Progress of Wound: Stable - Physical Exam Vital Signs Temp Pulse Resp BP 97.8 F 99 22 H 173/58 H 10/25/20 10:38 10/25/20 10:38 10/25/20 10:38 10/25/20 10:38 General: Alert, Oriented x3, Cooperative, No apparent distress HEENT: Atraumatic Extremities: No cyanosis, Capillary Refill Less than 3 Seconds, No Calf Tenderness, Diminished Peripheral Pulses, Edema, - - Left transmetatarsal amputation. Right fifth ray resection Skin: Ulcer/ Wound - No purulence, erythema, streaking, odor, infection. He does have excoriations and scattered skin discontinuity to the anterior right leg. Adjacent skin is hairless and atrophic, - - Blister with serosanguineous drainage to distal second toe. Third and second toe are well adhered. The right hallux nail is nonadhered and upon gentle movement the entire nail was avulsed with a healthy pink granular base with partial keratinization. The nails on the right foot long thick 2,3,4 Wound Measurements and Assessment WC - Nurse 1 - General Ulcer Measurement Start: 10/25/20 10:38 Freq: Status: Active Protocol: Activity Type Activity Date Activity User E-Sign Co-Sign Detail Recorded Client Recorded Date Recorded By Document 10/25/20 10:38 DL [id number] 10/25/20 10:51 DL 10/25/20 10:38 Wound Center Nurse 1 [Ulcer Assessment] #11 R. Grt Toe -Current Size (cm) - Length 0.1 -Current Size (cm) - Width 0.1 -Current Size (cm) - Depth 0.1 -Total Square Cm 0.01 -Photo Taken Yes -Exudate Amt Medium -Exudate Type Serosanguineous -Wound Margin Indistinct, Non -Visible -Granulation Amt Large (67-100%) -Granulation Quality Pale -Necrosis Amt None Present (0 %) -Structure Exposed N/A -Texture (Maria M-wound Skin Appearance) Localized Edema -Moisture (Maria M-wound Skin Appearance Maceration ) -Color (Maria M-wound Skin Appearance) Hemosiderin Staining -Temperature (Maria M-wound Skin No Abnormality Appearance) (Pt Warm) -Tenderness on Palpation (Maria M-wound No Skin Appearance) -Ulcer Cleansing Wound Cleanser -Foul Odor after Cleansing No -Anesthetic Used 4% Lidocaine 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 -Current Size (cm) - Length 15.2 -Current Size (cm) - Width 12 -Current Size (cm) - Depth 0.1 -Total Square Cm 182.4 -Photo Taken No -Exudate Amt None Present -Wound Margin Thickened -Granulation Amt None Present (0 %) -Necrosis Amt Large (67-100%) -Necrotic Tissue Type Eschar -Structure Exposed N/A -Texture (Maria M-wound Skin Appearance) Localized Edema ,Scarring -Moisture (Maria M-wound Skin Appearance No Abnormality ) -Color (Maria M-wound Skin Appearance) Hemosiderin Staining -Temperature (Maria M-wound Skin No Abnormality Appearance) (Pt Warm) -Tenderness on Palpation (Maria M-wound No Skin Appearance) -Ulcer Cleansing Wound Cleanser -Foul Odor after Cleansing No -Anesthetic Used 4% Lidocaine Solution #9 right lateral plantar foot -Current Size (cm) - Length 2.6 -Current Size (cm) - Width 0.7 -Current Size (cm) - Depth 0.4 -Total Square Cm 1.82 -Photo Taken No -Exudate Type Serosanguineous -Wound Margin Thickened & Rolled Under -Granulation Amt Large (67-100%) -Granulation Quality Red -Necrosis Amt Small (1-33%) -Necrotic Tissue Type Adherent Slough -Structure Exposed N/A -Texture (Maria M-wound Skin Appearance) Scarring -Moisture (Maria M-wound Skin Appearance Maceration ) -Color (Maria M-wound Skin Appearance) Hemosiderin Staining -Temperature (Maria M-wound Skin No Abnormality Appearance) (Pt Warm) -Tenderness on Palpation (Maria M-wound No Skin Appearance) -Ulcer Cleansing Wound Cleanser -Foul Odor after Cleansing No -Anesthetic Used 4% Lidocaine Solution #1 Left Plantar medial -Current Size (cm) - Length 2.6 -Current Size (cm) - Width 3.3 -Current Size (cm) - Depth 0.4 -Total Square Cm 8.58 -Photo Taken No -Exudate Amt Medium -Exudate Type Serosanguineous -Wound Margin Thickened & Rolled Under -Granulation Amt Medium (34-66%) -Granulation Quality [place] -Necrosis Amt Medium (34-66%) -Necrotic Tissue Type Adherent Slough -Structure Exposed N/A -Texture (Maria M-wound Skin Appearance) Scarring -Moisture (Maria M-wound Skin Appearance Maceration ) -Color (Maria M-wound Skin Appearance) Hemosiderin Staining -Temperature (Maria M-wound Skin No Abnormality Appearance) (Pt Warm) -Tenderness on Palpation (Maria M-wound No Skin Appearance) -Ulcer Cleansing Wound Cleanser -Foul Odor after Cleansing No -Anesthetic Used 4% Lidocaine Solution [Edema Assessment] -Right Calf (cm) 46 -Right Ankle (cm) 25.3 -Left Calf (cm) 46.1 -Left Ankle (cm) 26 WC - Nurse 2 - General Ulcer CM Notes Start: 10/25/20 10:38 Freq: Status: Active Protocol: Activity Type Activity Date Activity User E-Sign Co-Sign Detail Recorded Client Recorded Date Recorded By Document 10/25/20 11:09 CASSY [id number] 10/25/20 11:26 CASSY 10/25/20 11:09 Wound Center Nurse 2 [Procedure/Treatment] #11 R. Grt Toe -Time 11:10 -Correct Patient No -Correct Side, Site, Position No -Correct Procedure No -Procedure Performed No -Tunneling No -Undermining/Tunneling No -Circular Undermining No -Wound/Ulcer Outcome Not Healed -Ulcer Cleansing Rinsed/ Irrigated with Saline -Foul Odor after Cleansing No -Bioengineered Tissue No -Bleeding Controlled with Pressure -Offloading Yes -Type of Offloading Surgical Shoe -Treatment Response Procedure Tolerated Well -Debridement - Subq, 1st 20sq cm No #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 -Correct Patient Yes -Correct Side, Site, Position Yes -Correct Procedure Yes -Procedure Performed Yes -Type of Procedure Debridement -Clinical Debridement Subcutaneous -Tissue Removed Subcutaneous -Post Debridement (cm) - Length 10 -Post Debridement (cm) - Width 7 -Post Debridement (cm) - Depth 0.1 -Total Square (Post) (cm) 70 -Area of Debridement (cm) - Length 10 -Area of Debridement (cm) - Width 7 -Total Square (Area) (cm) 70 -Tunneling No -Undermining/Tunneling No -Circular Undermining No -Wound/Ulcer Outcome Not Healed -Ulcer Cleansing Rinsed/ Irrigated with Saline -Foul Odor after Cleansing No -Bioengineered Tissue No -Bleeding Controlled with Pressure -Offloading Yes -Type of Offloading Surgical Shoe -Treatment Response Procedure Tolerated Well -Debridement - Subq, 1st 20sq cm Yes -Debridement, SubQ, ea addt'l 20sq cm 3 or part thereof #9 right lateral plantar foot -Time 11:11 -Correct Patient Yes -Correct Side, Site, Position Yes -Correct Procedure Yes -Procedure Performed Yes -Type of Procedure Debridement -Clinical Debridement Subcutaneous -Tissue Removed Subcutaneous -Post Debridement (cm) - Length 2.6 -Post Debridement (cm) - Width 0.8 -Post Debridement (cm) - Depth 0.4 -Total Square (Post) (cm) 2.08 -Area of Debridement (cm) - Length 2.6 -Area of Debridement (cm) - Width 0.8 -Total Square (Area) (cm) 2.08 -Tunneling No -Undermining/Tunneling No -Circular Undermining No -Wound/Ulcer Outcome Not Healed -Ulcer Cleansing Rinsed/ Irrigated with Saline -Foul Odor after Cleansing No -Bioengineered Tissue No -Bleeding Controlled with Pressure -Offloading Yes -Type of Offloading Surgical Shoe -Treatment Response Procedure Tolerated Well -Debridement - Subq, 1st 20sq cm No #1 Left Plantar medial -Time 11:12 -Correct Patient Yes -Correct Side, Site, Position Yes -Correct Procedure Yes -Procedure Performed Yes -Type of Procedure Debridement -Clinical Debridement Subcutaneous -Tissue Removed Subcutaneous -Post Debridement (cm) - Length 2.6 -Post Debridement (cm) - Width 3.4 -Post Debridement (cm) - Depth 0.4 -Total Square (Post) (cm) 8.84 -Area of Debridement (cm) - Length 2.6 -Area of Debridement (cm) - Width 3.4 -Total Square (Area) (cm) 8.84 -Tunneling No -Undermining/Tunneling No -Circular Undermining No -Wound/Ulcer Outcome Not Healed -Ulcer Cleansing Rinsed/ Irrigated with Saline -Foul Odor after Cleansing No -Bioengineered Tissue No -Bleeding Controlled with Pressure -Offloading Yes -Type of Offloading Surgical Shoe -Treatment Response Procedure Tolerated Well -Debridement - Subq, 1st 20sq cm No [See Physician Procedure note for Specifics] Pain Scale: 0-10 Numeric [Pain] -Is Patient Pain Free? Yes WC - Nurse 3 - General Ulcer D/C NN Start: 10/25/20 10:38 Freq: Status: Active Protocol: Activity Type Activity Date Activity User E-Sign Co-Sign Detail Recorded Client Recorded Date Recorded By Document 10/25/20 11:42 DL [id number] 10/25/20 11:46 DL 10/25/20 11:42 Wound Care Nurse 3 [Wound Dressing] #11 R. Grt Toe -Ulcer Cleansing Rinsed/ Irrigated with Saline -Foul Odor after Cleansing No -Primary Dressing Applied Aquacel AG 4x4 -Primary Dressing Covered/Secured Dry Gauze & with Roll Gauze, Secured with Tape -Aquacel AG 4x4 1 #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 -Ulcer Cleansing Wound Cleanser -Foul Odor after Cleansing No -Other Dressing Hydrogel/ adaptic -Primary Dressing Covered/Secured Dry Gauze & with Roll Gauze, Secured with Tape #9 right lateral plantar foot -Ulcer Cleansing Rinsed/ Irrigated with Saline -Foul Odor after Cleansing No -Other Dressing aquacel ag -Primary Dressing Covered/Secured Dry Gauze & with Roll Gauze, Secured with Tape #1 Left Plantar medial -Ulcer Cleansing Rinsed/ Irrigated with Saline -Foul Odor after Cleansing No -Other Dressing aqaucel ag -Primary Dressing Covered/Secured Dry Gauze & with Roll Gauze, Secured with Tape [Post Procedure Tolerated] -Treatment Response Procedure Tolerated Well Pain Scale: 0-10 Numeric [Pain] -Is Patient Pain Free? Yes WC - Visit Discharge [Visit Discharge Information] -Discharge Condition Stable -Ambulatory Status Ambulatory -Transportation Private Auto Musculoskeletal: No Tenderness to Palpation of Joints or Extremities, Muscle Wasting, - - Compartments of leg are soft bilateral. Walking impairment Neurological: - - Lack of normal epicritic sensation is consistent with neuropathy Psych/Mental Status: Normal Affect, Appropriate Debridement Note Post-Debridement Measurements/Treatment - Nurse 2 - General Ulcer CM Notes Start: 10/25/20 10:38 Freq: Status: Active Protocol: Activity Type Activity Date Activity User E-Sign Co-Sign Detail Recorded Client Recorded Date Recorded By Document 10/25/20 11:09 CASSY [id number] 10/25/20 11:26 CASSY 10/25/20 11:09 Wound Center Nurse 2 #11 R. Grt Toe -Time 11:10 -Correct Patient No -Correct Side, Site, Position No -Correct Procedure No -Procedure Performed No -Tunneling No -Undermining/Tunneling No -Circular Undermining No -Wound/Ulcer Outcome Not Healed -Ulcer Cleansing Rinsed/ Irrigated with Saline -Foul Odor after Cleansing No -Bioengineered Tissue No -Bleeding Controlled with Pressure -Offloading Yes -Type of Offloading Surgical Shoe -Treatment Response Procedure Tolerated Well -Debridement - Subq, 1st 20sq cm No #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 -Correct Patient Yes -Correct Side, Site, Position Yes -Correct Procedure Yes -Procedure Performed Yes -Type of Procedure Debridement -Clinical Debridement Subcutaneous -Tissue Removed Subcutaneous -Post Debridement (cm) - Length 10 -Post Debridement (cm) - Width 7 -Post Debridement (cm) - Depth 0.1 -Total Square (Post) (cm) 70 -Area of Debridement (cm) - Length 10 -Area of Debridement (cm) - Width 7 -Total Square (Area) (cm) 70 -Tunneling No -Undermining/Tunneling No -Circular Undermining No -Wound/Ulcer Outcome Not Healed -Ulcer Cleansing Rinsed/ Irrigated with Saline -Foul Odor after Cleansing No -Bioengineered Tissue No -Bleeding Controlled with Pressure -Offloading Yes -Type of Offloading Surgical Shoe -Treatment Response Procedure Tolerated Well -Debridement - Subq, 1st 20sq cm Yes -Debridement, SubQ, ea addt'l 20sq cm 3 or part thereof #9 right lateral plantar foot -Time 11:11 -Correct Patient Yes -Correct Side, Site, Position Yes -Correct Procedure Yes -Procedure Performed Yes -Type of Procedure Debridement -Clinical Debridement Subcutaneous -Tissue Removed Subcutaneous -Post Debridement (cm) - Length 2.6 -Post Debridement (cm) - Width 0.8 -Post Debridement (cm) - Depth 0.4 -Total Square (Post) (cm) 2.08 -Area of Debridement (cm) - Length 2.6 -Area of Debridement (cm) - Width 0.8 -Total Square (Area) (cm) 2.08 -Tunneling No -Undermining/Tunneling No -Circular Undermining No -Wound/Ulcer Outcome Not Healed -Ulcer Cleansing Rinsed/ Irrigated with Saline -Foul Odor after Cleansing No -Bioengineered Tissue No -Bleeding Controlled with Pressure -Offloading Yes -Type of Offloading Surgical Shoe -Treatment Response Procedure Tolerated Well -Debridement - Subq, 1st 20sq cm No #1 Left Plantar medial -Time 11:12 -Correct Patient Yes -Correct Side, Site, Position Yes -Correct Procedure Yes -Procedure Performed Yes -Type of Procedure Debridement -Clinical Debridement Subcutaneous -Tissue Removed Subcutaneous -Post Debridement (cm) - Length 2.6 -Post Debridement (cm) - Width 3.4 -Post Debridement (cm) - Depth 0.4 -Total Square (Post) (cm) 8.84 -Area of Debridement (cm) - Length 2.6 -Area of Debridement (cm) - Width 3.4 -Total Square (Area) (cm) 8.84 -Tunneling No -Undermining/Tunneling No -Circular Undermining No -Wound/Ulcer Outcome Not Healed -Ulcer Cleansing Rinsed/ Irrigated with Saline -Foul Odor after Cleansing No -Bioengineered Tissue No -Bleeding Controlled with Pressure -Offloading Yes -Type of Offloading Surgical Shoe -Treatment Response Procedure Tolerated Well -Debridement - Subq, 1st 20sq cm No Pain Scale: 0-10 Numeric Is Patient Pain Free? Yes WC - Nurse 3 - General Ulcer D/C NN Start: 10/25/20 10:38 Freq: Status: Active Protocol: Activity Type Activity Date Activity User E-Sign Co-Sign Detail Recorded Client Recorded Date Recorded By Document 10/25/20 11:42 DL [id number] 10/25/20 11:46 DL 10/25/20 11:42 Wound Care Nurse 3 #11 R. Grt Toe -Ulcer Cleansing Rinsed/ Irrigated with Saline -Foul Odor after Cleansing No -Primary Dressing Applied Aquacel AG 4x4 -Primary Dressing Covered/Secured with Dry Gauze & Roll Gauze, Secured with Tape -Aquacel AG 4x4 1 #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 -Ulcer Cleansing Wound Cleanser -Foul Odor after Cleansing No -Other Dressing Hydrogel/ adaptic -Primary Dressing Covered/Secured with Dry Gauze & Roll Gauze, Secured with Tape #9 right lateral plantar foot -Ulcer Cleansing Rinsed/ Irrigated with Saline -Foul Odor after Cleansing No -Other Dressing aquacel ag -Primary Dressing Covered/Secured with Dry Gauze & Roll Gauze, Secured with Tape #1 Left Plantar medial -Ulcer Cleansing Rinsed/ Irrigated with Saline -Foul Odor after Cleansing No -Other Dressing aqaucel ag -Primary Dressing Covered/Secured with Dry Gauze & Roll Gauze, Secured with Tape Treatment Response Procedure Tolerated Well Pain Scale: 0-10 Numeric Is Patient Pain Free? Yes WC - Visit Discharge Discharge Condition Stable Ambulatory Status Ambulatory Transportation Private Auto Wound debrided: plantar medial foot Laterality: Left Wound Grade/Stage: grade 3 Type of Debridement: Excisional debridement Anesthesia Used: 5% Lidocaine Gel Depth: in the subcutaneous layer Percentage of wound debrided: 100 Instrument Used: #15 blade Tissue Removed: fibrous, devitalized subcutaneous, biofilm, slough Severity: Fat Layer Exposed Amount of bleeding with debridement: Mild Bleeding Controlled with: Pressure Patient tolerated procedure well - Additional Wound Wound debrided: anterior leg cluster Laterality: Right Wound Grade/Stage: grade 1 Type of Debridement: Excisional debridement Anesthesia Used: 5% Lidocaine Gel Depth: in the subcutaneous layer Percentage of wound debrided: 10 Instrument Used: #15 blade Tissue Removed: fibrous, devitalized subcutaneous, biofilm, slough, eschar Severity: Fat Layer Exposed Amount of bleeding with debridement: Mild Bleeding Controlled with: Pressure Patient tolerated procedure: Patient tolerated procedure well - Additional Wound Wound debrided: lateral foot Laterality: Right Wound Grade/Stage: grade 1 (prior surgical site) Type of Debridement: Excisional debridement Anesthesia Used: 5% Lidocaine Gel Depth: in the subcutaneous layer Percentage of wound debrided: 100 Instrument Used: #15 blade Tissue Removed: fibrous, devitalized subcutaneous, biofilm, slough Severity: Fat Layer Exposed Amount of bleeding with debridement: Mild Bleeding Controlled with: Pressure Patient tolerated procedure: Patient tolerated procedure well Assessment/Plan Active Problems (Last Updated 08/28/20 @ 17:[address] 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 Right foot ulcer w/ fat layer exposed at s/p fifth ray resection site (grade 1). Right leg ulcer, grade 1. Trauma right foot with nail avulsion of the hallux and blister right second toe. Morbid obesity. Diabetes type 2 with complications. Walking difficulty and impairment. Delayed healing. Tinea unguium versus onychauxis right 2, 3, 4 Plan: I reviewed and discussed his case. Subcutaneous excisional debridement was performed as noted in the clinical panel to the left foot and right foot. His ulcer status is stable to bilateral foot however increased ulcer size has been noted since he has been discharged home. His leg edema is slightly more compared to when he was in the transitional care unit. To elevate and reduce salt intake. To continue with Tubigrip compression garments. He is recently not been using these and he will resume use today. Compliance was discussed. This is imperative to proceed in a positive direction in regards to his wound healing. I discussed the need for serious offloading for limb salvage purposes. He has tried various shoes and walking boots. He has struggled with the use of such as a walker of a knee roller. A motorized scooter is also an option and at this time I recommend this. This is in process and he is been referred to a facility in [place]. I also recommend application of a total contact cast on the left lower extremity. He will bring his cast boot next week for application. This is medically necessary to offload bilateral lower extremities which is very challenging performed with compliance. His noninvasive vascular studies were reviewed from which were normal and intervention was previously not recommended. I advised him to follow-up with all of Dr. Bonilla's recommendations to optimize his healing process. He has for help scheduling this because he has not been able to do this. He has recently been seen and intervention is planned for arterial optimization. An updated bilateral duplex was also recommended to help with planning. His new injuries are noted. His right hallux nail was avulsed without anesthetic due to his neuropathy. There are no signs of infection. His blister was also drained after alcohol preparation to the second toe. He will apply Aquacel to the sites. His toenails no the right foot were also debrided with a nail nipper 2,3,4 without incident to reduce pressure, infection, and potential fungal load. He tolerated this well and was not able to perform this on his own. To continue to work on decreasing glucose levels. He has a history of hyperglycemia. To continue follow-up with primary care physician. To continue to follow-up with nutritional services. To continue to follow-up as advised. He is currently making adjustments with his eating habits. He also follows up with metal fabricator apprentice, Dr. Arteaga who is working with him to reduce his hemoglobin A1c with medication and behavioral changes. Smoking cessation was discussed in detail and he was advised on the healing impairment associated with this. To continue with his smoking cessation program. I also recommend discontinuation of nicotine products for this also contributes to small vessel contraction. I answered all of his questions today. . To return to clinic in 1 week or call sooner if questions, concerns, or progressive worsening.
[2020-11-01 11:47] VITALS: BP 162/78; PULSE 88; RESP 22; TEMP 37; BMI 47.2
--- NOTE | 2020-11-01 14:17 | PCM.WC.PN ---
(1) Blister (nonthermal), right foot, initial encounter Status: Resolved Code(s): S90.821A - Blister (nonthermal), right foot, initial encounter (2) Trauma of toe of right foot Status: Resolved Qualifiers: Encounter type: subsequent encounter Qualified Code(s): S99.921D - Unspecified injury of right foot, subsequent encounter Code(s): S99.921A - Unspecified injury of right foot, initial encounter (3) Diabetic polyneuropathy Status: Chronic Qualifiers: Diabetes mellitus type: type 2 Qualified Code(s): E11.42 - Type 2 diabetes mellitus with diabetic polyneuropathy Code(s): E11.42 - Type 2 diabetes mellitus with diabetic polyneuropathy (4) Localized edema Status: Chronic Code(s): R60.0 - Localized edema (5) 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 Status: Chronic Code(s): L97.912 - Non-pressure chronic ulcer of unspecified part of right lower leg with fat layer exposed (6) Tobacco dependence due to cigarettes Status: Chronic Code(s): F17.210 - Nicotine dependence, cigarettes, uncomplicated (7) Obesity Status: Chronic Qualifiers: Obesity type: due to excess calories Obesity classification: adult class 3 (BMI >= 40) Serious obesity comorbidity presence: with serious comorbidity Body mass index: BMI 45.0-49.9 Qualified Code(s): E66.01 - Morbid (severe) obesity due to excess calories; Z68.42 - Body mass index [BMI] 45.0-49.9, adult Code(s): E66.9 - Obesity, unspecified (8) Chronic ulcer of left foot with fat layer exposed Status: Chronic Code(s): L97.522 - Non-pressure chronic ulcer of other part of left foot with fat layer exposed (9) Difficulty in walking, not elsewhere classified Status: Chronic Code(s): R26.2 - Difficulty in walking, not elsewhere classified (10) History of transmetatarsal amputation of left foot Status: Chronic Code(s): Z89.432 - Acquired absence of left foot (11) Ulcer of right foot with fat layer exposed Status: Chronic Code(s): L97.512 - Non-pressure chronic ulcer of other part of right foot with fat layer exposed Type of Wound Date of Service: 11/01/20 Chief Complaint: Diabetic left foot ulceration, [place] Grade 3. right leg ulcer. Right foot ulcer (prior surgery) History of Wound: This 65-year-old male with multiple comorbidities was seen today for left foot ulcer. His left foot ulcer onset was 12-07-2019. He is previously known to me and had a left transmetatarsal amputation performed previously. He also had a 5th ray resection performed on his right foot and he has residual ulcer at that site. He also has ulcers in a clustered manner to his right leg. He denies diarrhea, rash, fever, chill, nausea, vomiting. He completed hyperbaric oxygen therapy sessions. He denies redness or odor. He continues to walk in his regular shoe although this is not going to allow healing. He denies calf pain. He continues to struggle with edema management, smoking cessation, nutrition, and maintaining reduced weightbearing activity. He recently followed up with endocrinology who emphasized the need to follow through on things as well. He is trying to get approved for a motorized scooter. He reports that he had an injury. He had a blister drained last week to the right second toe and his hallux nail was avulsed. He denies drainage at the sites and this has healed. He is ready to proceed with total contact casting epifix application of these are available and recommended today. Progress of Wound: Stable bilateral - Physical Exam Vital Signs Temp Pulse Resp BP 98.6 F 88 22 H 162/78 H 11/01/20 11:47 11/01/20 11:47 11/01/20 11:47 11/01/20 11:47 General: Alert, Oriented x3, Cooperative, No apparent distress HEENT: Atraumatic Extremities: No cyanosis, Capillary Refill Less than 3 Seconds, No Calf Tenderness, Diminished Peripheral Pulses, Edema Skin: Ulcer/ Wound - No purulence, erythema, streaking, odor, infection. Atrophic skin hairless bilateral. Granular base to right lateral forefoot and plantar left medial foot (decreased callus). There is full epithelialization and keratinization to wear the right hallux nail was avulsed last week., - - The previously drained right second distal toe blister is healed without active drainage or infection. Wound Measurements and Assessment WC - Nurse 1 - General Ulcer Measurement Start: 10/25/20 10:38 Freq: Status: Active Protocol: Activity Type Activity Date Activity User E-Sign Co-Sign Detail Recorded Client Recorded Date Recorded By Document 11/01/20 11:47 DL [id number] 11/01/20 11:57 DL 11/01/20 11:47 Wound Center Nurse 1 [Ulcer Assessment] #11 R. Grt Toe -Combined with other wound No -Current Size (cm) - Length 0.1 -Current Size (cm) - Width 0.1 -Current Size (cm) - Depth 0.1 -Total Square Cm 0.01 -Photo Taken No -Epithelialization Large 67-100% -Tunneling No -Undermining/Tunneling No -Circular Undermining No -Exudate Amt None Present -Wound Margin Flat & Intact -Granulation Amt Large (67-100%) -Granulation Quality [place] -Slough/Fibrin Yes -Necrosis Amt Small (1-33%) -Necrotic Tissue Type Adherent Slough -Texture (Maria M-wound Skin Appearance) Assessed, Scarring -Moisture (Maria M-wound Skin Appearance Assessed ) -Color (Maria M-wound Skin Appearance) Assessed -Temperature (Maria M-wound Skin No Abnormality Appearance) (Pt Warm) -Tenderness on Palpation (Maria M-wound No Skin Appearance) -Ulcer Cleansing Rinsed/ Irrigated with Saline -Foul Odor after Cleansing No -Anesthetic Used 4% Lidocaine 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 -Combined with other wound No -Current Size (cm) - Length 16 -Current Size (cm) - Width 14.2 -Current Size (cm) - Depth 0.1 -Total Square Cm 227.2 -Photo Taken No -Epithelialization None Present -Tunneling No -Undermining/Tunneling No -Circular Undermining No -Exudate Amt Medium -Exudate Type Serosanguineous -Wound Margin Distinct, Outline Attached -Granulation Amt Medium (34-66%) -Granulation Quality Red -Slough/Fibrin Yes -Necrosis Amt Medium (34-66%) -Necrotic Tissue Type Adherent Slough -Texture (Maria M-wound Skin Appearance) Assessed, Scarring -Moisture (Maria M-wound Skin Appearance Assessed,Dry/ ) Scaly -Color (Maria M-wound Skin Appearance) Assessed, Erythema -Temperature (Maria M-wound Skin No Abnormality Appearance) (Pt Warm) -Tenderness on Palpation (Maria M-wound No Skin Appearance) -Ulcer Cleansing Rinsed/ Irrigated with Saline -Foul Odor after Cleansing No -Anesthetic Used 4% Lidocaine Solution #14 RIGHT LATERAL PLANTAR FOOT -Combined with other wound No -Current Size (cm) - Length 2.7 -Current Size (cm) - Width 0.7 -Current Size (cm) - Depth 0.4 -Total Square Cm 1.89 -Photo Taken No -Epithelialization None Present -Tunneling No -Undermining/Tunneling No -Circular Undermining No -Exudate Amt Medium -Exudate Type Serosanguineous -Wound Margin Thickened & Rolled Under -Granulation Amt Small (1-33%) -Granulation Quality [place] -Slough/Fibrin Yes -Necrosis Amt Large (67-100%) -Necrotic Tissue Type Adherent Slough -Texture (Maria M-wound Skin Appearance) Assessed, Scarring -Moisture (Maria M-wound Skin Appearance Assessed,Dry/ ) Scaly -Color (Maria M-wound Skin Appearance) Assessed -Temperature (Maria M-wound Skin No Abnormality Appearance) (Pt Warm) -Tenderness on Palpation (Maria M-wound No Skin Appearance) -Ulcer Cleansing Rinsed/ Irrigated with Saline -Foul Odor after Cleansing No -Anesthetic Used 4% Lidocaine Solution #13 LEFT MEDIAL PLANTAR -Combined with other wound No -Current Size (cm) - Length 2.8 -Current Size (cm) - Width 3.5 -Current Size (cm) - Depth 0.5 -Total Square Cm 9.80 -Photo Taken No -Epithelialization None Present -Tunneling No -Undermining/Tunneling No -Circular Undermining No -Exudate Amt Medium -Exudate Type Serosanguineous -Wound Margin Distinct, Outline Attached -Granulation Amt Large (67-100%) -Granulation Quality Pale,Red -Slough/Fibrin Yes -Necrosis Amt Small (1-33%) -Necrotic Tissue Type Adherent Slough -Texture (Maria M-wound Skin Appearance) Assessed,Callus ,Scarring -Moisture (Maria M-wound Skin Appearance Assessed,Dry/ ) Scaly -Color (Maria M-wound Skin Appearance) Assessed -Temperature (Maria M-wound Skin No Abnormality Appearance) (Pt Warm) -Tenderness on Palpation (Maria M-wound No Skin Appearance) -Ulcer Cleansing Rinsed/ Irrigated with Saline -Foul Odor after Cleansing No -Anesthetic Used 4% Lidocaine Solution WC - Nurse 2 - General Ulcer CM Notes Start: 10/25/20 10:38 Freq: Status: Active Protocol: Activity Type Activity Date Activity User E-Sign Co-Sign Detail Recorded Client Recorded Date Recorded By Document 11/01/20 12:19 CASSY [id number] 11/01/20 12:32 CASSY 11/01/20 12:19 Wound Center Nurse 2 [Procedure/Treatment] #Ita Jarvis Toe -Time 12:23 -Correct Patient No -Correct Side, Site, Position No -Correct Procedure No -Procedure Performed No -Post Debridement (cm) - Length 0 -Post Debridement (cm) - Width 0 -Post Debridement (cm) - Depth 0 -Total Square (Post) (cm) 0 -Area of Debridement (cm) - Length 0 -Area of Debridement (cm) - Width 0 -Total Square (Area) (cm) 0 -Wound/Ulcer Outcome Healed- Epithelialized #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 -Time 12:24 -Correct Patient Yes -Correct Side, Site, Position Yes -Correct Procedure Yes -Procedure Performed Yes -Type of Procedure Debridement -Clinical Debridement Subcutaneous -Tissue Removed Subcutaneous -Post Debridement (cm) - Length 4.5 -Post Debridement (cm) - Width 2.5 -Post Debridement (cm) - Depth 0.1 -Total Square (Post) (cm) 11.25 -Area of Debridement (cm) - Length 4.5 -Area of Debridement (cm) - Width 2.5 -Total Square (Area) (cm) 11.25 -Tunneling No -Undermining/Tunneling No -Circular Undermining No -Wound/Ulcer Outcome Not Healed -Ulcer Cleansing Rinsed/ Irrigated with Saline -Foul Odor after Cleansing No -Bioengineered Tissue No -Bleeding Controlled with Pressure -Offloading No -Treatment Response Procedure Tolerated Well -Debridement - Subq, 1st 20sq cm No #14 RIGHT LATERAL PLANTAR FOOT -Time 12:19 -Correct Patient Yes -Correct Side, Site, Position Yes -Correct Procedure Yes -Procedure Performed Yes -Type of Procedure Debridement -Clinical Debridement Subcutaneous -Tissue Removed Subcutaneous -Post Debridement (cm) - Length 2.8 -Post Debridement (cm) - Width 0.8 -Post Debridement (cm) - Depth 0.4 -Total Square (Post) (cm) 2.24 -Area of Debridement (cm) - Length 2.8 -Area of Debridement (cm) - Width 0.8 -Total Square (Area) (cm) 2.24 -Tunneling No -Undermining/Tunneling No -Circular Undermining No -Wound/Ulcer Outcome Not Healed -Ulcer Cleansing Rinsed/ Irrigated with Saline -Foul Odor after Cleansing No -Bioengineered Tissue Yes -Type of Bioengineered Tissue Epifix -Expiration Date 05/23/25 -Product Lot Number [id number] -Percent Used 100 -Lot number of Saline Used [id number] -Bleeding Controlled with Pressure -Offloading Yes -Type of Offloading Surgical Shoe -Treatment Response Procedure Tolerated Well -Debridement - Subq, 1st 20sq cm No -Apply Skin Sub - 1st 25 sq cm - Feet 1 -Epifix (per sq cm) 4 #13 LEFT MEDIAL PLANTAR -Time 12:26 -Correct Patient Yes -Correct Side, Site, Position Yes -Correct Procedure Yes -Procedure Performed Yes -Type of Procedure Debridement -Clinical Debridement Subcutaneous -Tissue Removed Subcutaneous -Post Debridement (cm) - Length 2.8 -Post Debridement (cm) - Width 3.6 -Post Debridement (cm) - Depth 0.5 -Total Square (Post) (cm) 10.08 -Area of Debridement (cm) - Length 2.8 -Area of Debridement (cm) - Width 3.6 -Total Square (Area) (cm) 10.08 -Tunneling No -Undermining/Tunneling No -Circular Undermining No -Wound/Ulcer Outcome Not Healed -Ulcer Cleansing Rinsed/ Irrigated with Saline -Foul Odor after Cleansing No -Bioengineered Tissue No -Bleeding Controlled with Pressure -Offloading Yes -Type of Offloading Total Contact Cast (TCC) - Left ($) -Treatment Response Procedure Tolerated Well -Debridement - Subq, 1st 20sq cm No [See Physician Procedure note for Specifics] UZIEL - Nurse 3 - General Ulcer D/C NN Start: 10/25/20 10:38 Freq: Status: Active Protocol: Activity Type Activity Date Activity User E-Sign Co-Sign Detail Recorded Client Recorded Date Recorded By Document 11/01/20 12:41 CASSY [id number] 11/01/20 12:42 CASSY 11/01/20 12:41 Wound Care Nurse 3 [Wound Dressing] #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 -Ulcer Cleansing Rinsed/ Irrigated with Saline -Foul Odor after Cleansing No -Primary Dressing Applied C Hydrogel ($), NonAdherent Contact Layer -Primary Dressing Covered/Secured Dry Gauze & with Roll Gauze, Secured with Tape #14 RIGHT LATERAL PLANTAR FOOT -Ulcer Cleansing Rinsed/ Irrigated with Saline -Foul Odor after Cleansing No -Primary Dressing Covered/Secured Dry Gauze & with Roll Gauze, Secured with Tape #13 LEFT MEDIAL PLANTAR -Ulcer Cleansing Rinsed/ Irrigated with Saline -Foul Odor after Cleansing No -Primary Dressing Applied Aquacel AG 4x4 -Primary Dressing Covered/Secured Dry Gauze & with Roll Gauze, Secured with Tape -Aquacel AG 4x4 1 [Compression Applied] Right -Tubular Bandage Single Layer -Size of Tubigrip Used Size E -Size E ($) 1 Pain Scale: 0-10 Numeric [Pain] -Is Patient Pain Free? Yes - Visit Discharge [Visit Discharge Information] -Discharge Condition Stable -Ambulatory Status Ambulatory -Transportation Ambulance -Medication Reconcilliation completed Yes & provided to patient/care provider -Clinical Summary of Care Provided Yes Musculoskeletal: No Tenderness to Palpation of Joints or Extremities, Muscle Wasting, - - Transmetatarsal amputation left Neurological: - - Lack of epicritic sensation light touch is consistent with neuropathy status Psych/Mental Status: Normal Affect, Appropriate Debridement Note Post-Debridement Measurements/Treatment - Nurse 2 - General Ulcer CM Notes Start: 10/25/20 10:38 Freq: Status: Active Protocol: Activity Type Activity Date Activity User E-Sign Co-Sign Detail Recorded Client Recorded Date Recorded By Document 10/25/20 11:09 [id number] 10/25/20 11:26 Document 11/01/20 12:19 [id number] 11/01/20 12:32 10/25/20 11/01/20 11:09 12:19 Wound Center Nurse 2 #11 R. mJt Toe -Time 11:10 12:23 -Correct Patient No No -Correct Side, Site, Position No No -Correct Procedure No No -Procedure Performed No No -Post Debridement (cm) - Length 0 -Post Debridement (cm) - Width 0 -Post Debridement (cm) - Depth 0 -Total Square (Post) (cm) 0 -Area of Debridement (cm) - Length 0 -Area of Debridement (cm) - Width 0 -Total Square (Area) (cm) 0 -Tunneling No -Undermining/Tunneling No -Circular Undermining No -Wound/Ulcer Outcome Not Healed Healed- Epithelialized -Ulcer Cleansing Rinsed/ Irrigated with Saline -Foul Odor after Cleansing No -Bioengineered Tissue No -Bleeding Controlled with Pressure -Offloading Yes -Type of Offloading Surgical Shoe -Treatment Response Procedure Tolerated Well -Debridement - Subq, 1st 20sq cm No #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 -Time 12:05 12:24 -Correct Patient Yes Yes -Correct Side, Site, Position Yes Yes -Correct Procedure Yes Yes -Procedure Performed Yes Yes -Type of Procedure Debridement Debridement -Clinical Debridement Subcutaneous Subcutaneous -Tissue Removed Subcutaneous Subcutaneous -Post Debridement (cm) - Length 10 4.5 -Post Debridement (cm) - Width 7 2.5 -Post Debridement (cm) - Depth 0.1 0.1 -Total Square (Post) (cm) 70 11.25 -Area of Debridement (cm) - Length 10 4.5 -Area of Debridement (cm) - Width 7 2.5 -Total Square (Area) (cm) 70 11.25 -Tunneling No No -Undermining/Tunneling No No -Circular Undermining No No -Wound/Ulcer Outcome Not Healed Not Healed -Ulcer Cleansing Rinsed/ Rinsed/ Irrigated with Irrigated with Saline Saline -Foul Odor after Cleansing No No -Bioengineered Tissue No No -Bleeding Controlled with Pressure Pressure -Other 10% of the ulcer was debrided per Dr González -Offloading Yes No -Type of Offloading Surgical Shoe -Treatment Response Procedure Procedure Tolerated Well Tolerated Well -Debridement - Subq, 1st 20sq cm Yes No #14 RIGHT LATERAL PLANTAR FOOT -Time 11:11 12:19 -Correct Patient Yes Yes -Correct Side, Site, Position Yes Yes -Correct Procedure Yes Yes -Procedure Performed Yes Yes -Type of Procedure Debridement Debridement -Clinical Debridement Subcutaneous Subcutaneous -Tissue Removed Subcutaneous Subcutaneous -Post Debridement (cm) - Length 2.6 2.8 -Post Debridement (cm) - Width 0.8 0.8 -Post Debridement (cm) - Depth 0.4 0.4 -Total Square (Post) (cm) 2.08 2.24 -Area of Debridement (cm) - Length 2.6 2.8 -Area of Debridement (cm) - Width 0.8 0.8 -Total Square (Area) (cm) 2.08 2.24 -Tunneling No No -Undermining/Tunneling No No -Circular Undermining No No -Wound/Ulcer Outcome Not Healed Not Healed -Ulcer Cleansing Rinsed/ Rinsed/ Irrigated with Irrigated with Saline Saline -Foul Odor after Cleansing No No -Bioengineered Tissue No Yes -Type of Bioengineered Tissue Epifix -Expiration Date 05/23/25 -Product Lot Number [id number] -Percent Used 100 -Lot number of Saline Used [id number] -Bleeding Controlled with Pressure Pressure -Offloading Yes Yes -Type of Offloading Surgical Shoe Surgical Shoe -Treatment Response Procedure Procedure Tolerated Well Tolerated Well -Debridement - Subq, 1st 20sq cm No No -Apply Skin Sub - 1st 25 sq cm - Feet 1 -Epifix (per sq cm) 4 #13 LEFT MEDIAL PLANTAR -Time 11:12 12:26 -Correct Patient Yes Yes -Correct Side, Site, Position Yes Yes -Correct Procedure Yes Yes -Procedure Performed Yes Yes -Type of Procedure Debridement Debridement -Clinical Debridement Subcutaneous Subcutaneous -Tissue Removed Subcutaneous Subcutaneous -Post Debridement (cm) - Length 2.6 2.8 -Post Debridement (cm) - Width 3.4 3.6 -Post Debridement (cm) - Depth 0.4 0.5 -Total Square (Post) (cm) 8.84 10.08 -Area of Debridement (cm) - Length 2.6 2.8 -Area of Debridement (cm) - Width 3.4 3.6 -Total Square (Area) (cm) 8.84 10.08 -Tunneling No No -Undermining/Tunneling No No -Circular Undermining No No -Wound/Ulcer Outcome Not Healed Not Healed -Ulcer Cleansing Rinsed/ Rinsed/ Irrigated with Irrigated with Saline Saline -Foul Odor after Cleansing No No -Bioengineered Tissue No No -Bleeding Controlled with Pressure Pressure -Offloading Yes Yes -Type of Offloading Surgical Shoe Total Contact Cast (TCC) - Left ($) -Treatment Response Procedure Procedure Tolerated Well Tolerated Well -Debridement - Subq, 1st 20sq cm No No Pain Scale: 0-10 Numeric Is Patient Pain Free? Yes WC - Nurse 3 - General Ulcer D/C NN Start: 10/25/20 10:38 Freq: Status: Active Protocol: Activity Type Activity Date Activity User E-Sign Co-Sign Detail Recorded Client Recorded Date Recorded By Document 10/25/20 11:42 DL [id number] 10/25/20 11:46 DL Document 11/01/20 12:41 JF [id number] 11/01/20 12:42 JF 10/25/20 11/01/20 11:42 12:41 Wound Care Nurse 3 #11 R. Grt Toe -Ulcer Cleansing Rinsed/ Irrigated with Saline -Foul Odor after Cleansing No -Primary Dressing Applied Aquacel AG 4x4 -Primary Dressing Covered/Secured with Dry Gauze & Roll Gauze, Secured with Tape -Aquacel AG 4x4 1 #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 -Ulcer Cleansing Wound Cleanser Rinsed/ Irrigated with Saline -Foul Odor after Cleansing No No -Primary Dressing Applied C Hydrogel ($), NonAdherent Contact Layer -Other Dressing Hydrogel/ adaptic -Primary Dressing Covered/Secured with Dry Gauze & Dry Gauze & Roll Gauze, Roll Gauze, Secured with Secured with Tape Tape #14 RIGHT LATERAL PLANTAR FOOT -Ulcer Cleansing Rinsed/ Rinsed/ Irrigated with Irrigated with Saline Saline -Foul Odor after Cleansing No No -Other Dressing aquacel ag -Primary Dressing Covered/Secured with Dry Gauze & Dry Gauze & Roll Gauze, Roll Gauze, Secured with Secured with Tape Tape #13 LEFT MEDIAL PLANTAR -Ulcer Cleansing Rinsed/ Rinsed/ Irrigated with Irrigated with Saline Saline -Foul Odor after Cleansing No No -Primary Dressing Applied Aquacel AG 4x4 -Other Dressing aqaucel ag -Primary Dressing Covered/Secured with Dry Gauze & Dry Gauze & Roll Gauze, Roll Gauze, Secured with Secured with Tape Tape -Aquacel AG 4x4 1 Right -Tubular Bandage Single Layer -Size of Tubigrip Used Size E -Size E ($) 1 Treatment Response Procedure Tolerated Well Pain Scale: 0-10 Numeric Is Patient Pain Free? Yes Yes WC - Visit Discharge Discharge Condition Stable Stable Ambulatory Status Ambulatory Ambulatory Transportation Private Auto Ambulance Medication Reconcilliation completed & Yes provided to patient/care provider Clinical Summary of Care Provided Yes Wound debrided: plantar medial foot Laterality: Left Wound Grade/Stage: grade 3 Type of Debridement: Excisional debridement Anesthesia Used: 5% Lidocaine Gel Depth: in the subcutaneous layer Percentage of wound debrided: 100 Instrument Used: #15 blade Tissue Removed: fibrous, devitalized subcutaneous, biofilm, slough Severity: Fat Layer Exposed Amount of bleeding with debridement: Mild Bleeding Controlled with: Pressure Patient tolerated procedure well - Additional Wound Wound debrided: lateral forefoot Laterality: Left Wound Grade/Stage: grade 1 (prior surgical site) Type of Debridement: Excisional debridement Anesthesia Used: 5% Lidocaine Gel Depth: in the subcutaneous layer Percentage of wound debrided: 100 Instrument Used: #15 blade Tissue Removed: fibrous, devitalized subcutaneous, biofilm, slough Severity: Fat Layer Exposed Amount of bleeding with debridement: Mild Bleeding Controlled with: Pressure Patient tolerated procedure: Patient tolerated procedure well - Additional Wound Wound debrided: cluster leg Laterality: Right Wound Grade/Stage: grade 1 Type of Debridement: Excisional debridement Anesthesia Used: 5% Lidocaine Gel Depth: in the subcutaneous layer Percentage of wound debrided: 10 Instrument Used: #15 blade Tissue Removed: fibrous, devitalized subcutaneous, biofilm, slough Severity: Fat Layer Exposed Amount of bleeding with debridement: Mild Bleeding Controlled with: Pressure Assessment/Plan Active Problems (Last Reviewed 10/31/20 @ 16:[address] 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 Right foot ulcer w/ fat layer exposed at s/p fifth ray resection site (grade 1). Right leg ulcer, grade 1. Trauma right foot with nail avulsion of the hallux and blister right second toe - both healed today. Morbid obesity. Diabetes type 2 with complications. Walking difficulty and impairment. Delayed healing Plan: I reviewed and discussed his case. Subcutaneous excisional debridement was performed as noted in the clinical panel to the left foot and right foot. His ulcer status is stable to bilateral foot however increased ulcer size has been noted since he has been discharged home. His leg edema is slightly more compared to when he was in the transitional care unit. To elevate and reduce salt intake. To continue with Tubigrip compression garments. He is recently not been using these and he will resume use today. I recommend application of advanced wound healing product to the right foot. Prior authorization was confirmed. The indications, benefits, anticipated application and healing time management were reviewed in detail. Verbal consent was obtained in the procedure for today. This was applied according to standard protocol and was further secured with a wound veil and Steri-Strips. It is noted that this is the same application site that was previously improved last year however there was time gap did not allow subsequent applications during his initial delineated approval time. The reason there was a gap included hospitalization and further rehabilitation in our transitional care unit. Therefore it was reapplied today. He was advised to keep this dressing of the right foot clean, dry, and intact until follow-up next week. Aquacel Ag was applied to the left foot and he provided verbal consent for a left total contact cast. This was applied in a well padded neutral position according standard protocol. He tolerated this well. He was also advised to keep this clean, dry, and intact until follow-up next week. Compliance was discussed. This is imperative to proceed in a positive direction in regards to his wound healing. I discussed the need for serious offloading for limb salvage purposes. He has tried various shoes and walking boots. He presents with full weightbearing and diabetic shoes again today which is not recommended. He has struggled with the use of such as a walker of a knee roller. A motorized scooter is also an option and at this time I recommend this. This is in process and he is been referred to a facility in [place]. He was not able to follow-up on this this past weekend he was advised to reach out again this week. His noninvasive vascular studies were reviewed from which were normal and intervention was previously not recommended. I advised him to follow-up with all of Dr. Bonilla's recommendations to optimize his healing process. He has for help scheduling this because he has not been able to do this. He has recently been seen and intervention is planned for arterial optimization. An updated bilateral duplex was also recommended to help with planning. His new injuries are noted. His right hallux nail was avulsed and his blister on his distal right second toe was drained last week and the sites have fully healed without signs of infection. Additional dressings to the sites are not recommended. To continue to work on decreasing glucose levels. He has a history of hyperglycemia. To continue follow-up with primary care physician. To continue to follow-up with nutritional services. To continue to follow-up as advised. He is currently making adjustments with his eating habits. He also follows up with test department helper, Dr. Arteaga who is working with him to reduce his hemoglobin A1c with medication and behavioral changes. Smoking cessation was discussed in detail and he was advised on the healing impairment associated with this. To continue with his smoking cessation program. I also recommend discontinuation of nicotine products for this also contributes to small vessel contraction. I answered all of his questions today. . To return to clinic in 1 week or call sooner if questions, concerns, or progressive worsening. He will follow-up with Dr. Powell for postoperative right foot evaluation. I answered all his questions. Note: [employer] speech recognition school athletic director software was used to create portions of this document. Sound-alike and misspelled words, as well as other school athletic director errors may be contained in the documentation. 32 minutes was spent on this encounter. This included face to face and non face to face care including preparing for the visit, reviewing the history, performing the exam, counseling and providing education to the patient, family, or caregiver, ordering medications/test/ procedures if indicated as documented, communicating with other healthcare providers, documenting information in the medical record, interpreting / sharing this information when indicated as documented, and care coordination.
[2020-11-07 12:02] VITALS: BP 164/73; PULSE 94; RESP 18; TEMP 36.2; BMI 47.2
--- NOTE | 2020-11-07 12:45 | PN.PCM_ITS ---
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 (current) use of insulin Code(s): E11.9 - Type 2 diabetes mellitus without complications (2) Diabetic polyneuropathy Status: Chronic Qualifiers: Diabetes mellitus type: type 2 Qualified Code(s): E11.42 - Type 2 diabetes mellitus with diabetic polyneuropathy Code(s): E11.42 - Type 2 diabetes mellitus with diabetic polyneuropathy (3) 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 Status: Chronic Code(s): L97.912 - Non-pressure chronic ulcer of unspecified part of right lower leg with fat layer exposed (4) Blister (nonthermal), right foot, initial encounter Status: Resolved Code(s): S90.821A - Blister (nonthermal), right foot, initial encounter (5) Ulcer of right foot with fat layer exposed Status: Chronic Code(s): L97.512 - Non-pressure chronic ulcer of other part of right foot with fat layer exposed (6) Obesity Status: Chronic Qualifiers: Obesity type: due to excess calories Obesity classification: adult class 3 (BMI >= 40) Serious obesity comorbidity presence: with serious comorbidity Body mass index: BMI 45.0-49.9 Qualified Code(s): E66.01 - Morbid (severe) obesity due to excess calories; Z68.42 - Body mass index [BMI] 45.0-49.9, adult Code(s): E66.9 - Obesity, unspecified (7) Chronic ulcer of left foot with fat layer exposed Status: Chronic Code(s): L97.522 - Non-pressure chronic ulcer of other part of left foot with fat layer exposed (8) Diabetic ulcer of left foot Status: Chronic Qualifiers: Diabetic foot ulcer location: midfoot Diabetes mellitus type: type 2 Code(s): E11.621 - Type 2 diabetes mellitus with foot ulcer; L97.529 - Non- pressure chronic ulcer of other part of left foot with unspecified severity (9) Delayed wound healing Status: Chronic Code(s): T14.8XXD - Other injury of unspecified body region, subsequent encounter (10) Difficulty in walking, not elsewhere classified Status: Chronic Code(s): R26.2 - Difficulty in walking, not elsewhere classified (11) Ulcer of right foot with fat layer exposed Status: Chronic Code(s): L97.512 - Non-pressure chronic ulcer of other part of right foot with fat layer exposed Type of Wound Date of Service: 11/07/20 Chief Complaint: Diabetic left foot ulceration, [place] Grade 3. right leg ulcer. Right foot ulcer (prior surgery) History of Wound: This 65-year-old male with multiple comorbidities was seen today for bilateral foot ulcer. His left foot ulcer onset was 12-07-2019. He is previously known to me and had a left transmetatarsal amputation performed pre viously. He also had a 5th ray resection performed on his right foot and he has residual ulcer at that site. He also has ulcers in a clustered manner to his right leg is new ulceration noted to medial right ankle cluster. He denies diarrhea, rash, fever, chill, nausea, vomiting. He completed hyperbaric oxygen therapy sessions. He denies redness or odor. He continues to walk in his regular shoe although this is not going to allow healing. He denies calf pain. He continues to struggle with edema management, smoking cessation, nutrition, and maintaining reduced weightbearing activity. He recently followed up with endocrinology who emphasized the need to follow through on things as well. He is trying to get approved for a motorized scooter. This is still pending. He reports that he had an injury. He states that the total contact cast on his left lower extremity rubbed against his medial right ankle creating a new cluster of ulcerations. He states that this was noticed yesterday November 06, 2020. He wishes to continue with total contact casting on the left and epifix application on the right foot ulceration. Progress of Wound: Stable bilateral. New ulceration to medial right ankle Subjective: Insert subjective patient states that the total contact cast rubbed against his right ankle creating a new wound. Patient denies any other issues. Patient states most likely rub during the night as he has restless leg syndrome. He states that this is only been there for 1 day duration. - Physical Exam Vital Signs Temp Pulse Resp BP 97.2 F L 94 18 164/73 H 11/07/20 12:02 11/07/20 12:02 11/07/20 12:02 11/07/20 12:02 General: Alert, Oriented x3 HEENT: Atraumatic Extremities: No clubbing, No cyanosis, Capillary Refill Less than 3 Seconds, No Calf Tenderness, Diminished Peripheral Pulses, Edema Skin: Ulcer/ Wound - Right leg cluster, right medial ankle cluster, right lateral foot, left anterior mccloud. No malodor, erythema, purulence, probing to bone, streaking, or other signs of infection. Skin is atrophic and hairless. Granular base with serosanguineous drainage after debridement, - - Left plantar foot ulceration at TMA site. No malodor, erythema, purulence, probing to bone, streaking, or other signs of infection. Skin is atrophic and hairless. Granular base with serosanguineous drainage after debridement. There is a significant amount of callus buildup periulcer and stump Wound Measurements and Assessment WC - Nurse 1 - General Ulcer Measurement Start: 10/25/20 10:38 Freq: Status: Active Protocol: Activity Type Activity Date Activity User E-Sign Co-Sign Detail Recorded Client Recorded Date Recorded By Document 11/07/20 12:02 KIKA [id number] 11/07/20 12:15 KIKA 11/07/20 12:02 Wound Center Nurse 1 [Ulcer Assessment] #15 Right medial cluster ankle -Combined with other wound No -Current Size (cm) - Length 2 -Current Size (cm) - Width 1.7 -Current Size (cm) - Depth 0.2 -Total Square Cm 3.4 -Date of Last Picture (Recall this 11/07/20 field) -Photo Taken Yes -Epithelialization None Present -Tunneling No -Undermining/Tunneling No -Granulation Amt None Present (0 %) -Slough/Fibrin Yes -Necrosis Amt Large (67-100%) -Necrotic Tissue Type Eschar -Texture (Maria M-wound Skin Appearance) No Abnormality -Moisture (Maria M-wound Skin Appearance No Abnormality ) -Color (Maria M-wound Skin Appearance) No Abnormality -Temperature (Maria M-wound Skin No Abnormality Appearance) (Pt Warm) #14 Left Ant Mccloud -Combined with other wound No -Current Size (cm) - Length 1.3 -Current Size (cm) - Width 1.0 -Current Size (cm) - Depth 0.1 -Total Square Cm 1.30 -Date of Last Picture (Recall this 11/07/20 field) -Photo Taken Yes -Epithelialization None Present -Tunneling No -Undermining/Tunneling No -Circular Undermining No -Exudate Amt Small -Exudate Type Serosanguineous -Granulation Amt Large (67-100%) -Granulation Quality [place] -Slough/Fibrin Yes -Necrosis Amt Small (1-33%) -Necrotic Tissue Type Adherent Slough -Texture (Maria M-wound Skin Appearance) No Abnormality -Moisture (Maria M-wound Skin Appearance No Abnormality ) -Color (Maria M-wound Skin Appearance) No Abnormality #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 -Combined with other wound No -Current Size (cm) - Length 15 -Current Size (cm) - Width 14 -Current Size (cm) - Depth 0.2 -Total Square Cm 210 -Epithelialization Small 1-33% -Tunneling No -Undermining/Tunneling No -Circular Undermining No -Exudate Amt Medium -Exudate Type Purulent -Granulation Amt None Present (0 %) -Slough/Fibrin Yes -Necrosis Amt Large (67-100%) -Necrotic Tissue Type Adherent Slough -Texture (Maria M-wound Skin Appearance) No Abnormality -Moisture (Maria M-wound Skin Appearance No Abnormality ) -Color (Maria M-wound Skin Appearance) No Abnormality -Temperature (Maria M-wound Skin No Abnormality Appearance) (Pt Warm) -Ulcer Cleansing Rinsed/ Irrigated with Saline #14 RIGHT LATERAL PLANTAR FOOT -Combined with other wound No -Current Size (cm) - Length 2.1 -Current Size (cm) - Width 0.7 -Current Size (cm) - Depth 0.2 -Total Square Cm 1.47 -Photo Taken No -Epithelialization None Present -Tunneling No -Undermining/Tunneling No -Circular Undermining No -Exudate Amt Medium -Exudate Type Serosanguineous -Granulation Amt Small (1-33%) -Granulation Quality [place] -Slough/Fibrin Yes -Necrosis Amt Large (67-100%) -Necrotic Tissue Type Adherent Slough -Moisture (Maria M-wound Skin Appearance Maceration ) #13 LEFT MEDIAL PLANTAR -Combined with other wound No -Current Size (cm) - Length 2.8 -Current Size (cm) - Width 3.5 -Current Size (cm) - Depth 0.3 -Total Square Cm 9.80 -Photo Taken No -Epithelialization None Present -Tunneling No -Undermining/Tunneling No -Circular Undermining No -Exudate Amt Medium -Exudate Type Serosanguineous -Granulation Amt Medium (34-66%) -Granulation Quality [place] -Slough/Fibrin Yes -Necrosis Amt Medium (34-66%) -Necrotic Tissue Type Adherent Slough -Texture (Maria M-wound Skin Appearance) Callus -Moisture (Maria M-wound Skin Appearance Maceration ) WC - Nurse 2 - General Ulcer CM Notes Start: 10/25/20 10:38 Freq: Status: Active Protocol: Activity Type Activity Date Activity User E-Sign Co-Sign Detail Recorded Client Recorded Date Recorded By Document 11/07/20 12:20 CASSY [id number] 11/07/20 12:45 CASSY 11/07/20 12:20 Wound Center Nurse 2 [Procedure/Treatment] #15 Right medial cluster ankle -Time 12:20 -Correct Patient Yes -Correct Side, Site, Position Yes -Correct Procedure Yes -Procedure Performed Yes -Type of Procedure Debridement -Clinical Debridement Subcutaneous -Tissue Removed Subcutaneous -Post Debridement (cm) - Length 2.9 -Post Debridement (cm) - Width 2.1 -Post Debridement (cm) - Depth 0.1 -Total Square (Post) (cm) 6.09 -Area of Debridement (cm) - Length 2.9 -Area of Debridement (cm) - Width 2.1 -Total Square (Area) (cm) 6.09 -Tunneling No -Undermining/Tunneling No -Circular Undermining No -Wound/Ulcer Outcome Not Healed -Ulcer Cleansing Rinsed/ Irrigated with Saline -Foul Odor after Cleansing No -Bioengineered Tissue No -Bleeding Controlled with Pressure -Offloading No -Treatment Response Procedure Tolerated Well -Debridement - Subq, 1st 20sq cm Yes -Debridement, SubQ, ea addt'l 20sq cm 2 or part thereof #14 Left Ant Mccloud -Time 12:21 -Correct Patient Yes -Correct Side, Site, Position Yes -Correct Procedure Yes -Procedure Performed Yes -Type of Procedure Debridement -Clinical Debridement Subcutaneous -Tissue Removed Subcutaneous -Post Debridement (cm) - Length 1.1 -Post Debridement (cm) - Width 1.0 -Post Debridement (cm) - Depth 0.1 -Total Square (Post) (cm) 1.10 -Area of Debridement (cm) - Length 1.1 -Area of Debridement (cm) - Width 1.0 -Total Square (Area) (cm) 1.10 -Tunneling No -Undermining/Tunneling No -Circular Undermining No -Wound/Ulcer Outcome Not Healed -Ulcer Cleansing Rinsed/ Irrigated with Saline -Foul Odor after Cleansing No -Bioengineered Tissue No -Bleeding Controlled with Pressure -Offloading Yes -Type of Offloading Total Contact Cast (TCC) - Left ($) -Treatment Response Procedure Tolerated Well -Debridement - Subq, 1st 20sq cm No #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 -Time 12:34 -Correct Patient Yes -Correct Side, Site, Position Yes -Correct Procedure Yes -Procedure Performed Yes -Type of Procedure Debridement -Clinical Debridement Subcutaneous -Tissue Removed Subcutaneous -Post Debridement (cm) - Length 9 -Post Debridement (cm) - Width 4 -Post Debridement (cm) - Depth 0.1 -Total Square (Post) (cm) 36 -Area of Debridement (cm) - Length 9 -Area of Debridement (cm) - Width 4 -Total Square (Area) (cm) 36 -Tunneling No -Undermining/Tunneling No -Circular Undermining No -Wound/Ulcer Outcome Not Healed -Ulcer Cleansing Rinsed/ Irrigated with Saline -Foul Odor after Cleansing No -Bioengineered Tissue No -Bleeding Controlled with Pressure -Offloading No -Treatment Response Procedure Tolerated Well -Debridement - Subq, 1st 20sq cm No #14 RIGHT LATERAL PLANTAR FOOT -Time 12:34 -Correct Patient Yes -Correct Side, Site, Position Yes -Correct Procedure Yes -Procedure Performed Yes -Type of Procedure Debridement -Clinical Debridement Subcutaneous -Tissue Removed Subcutaneous -Post Debridement (cm) - Length 2.5 -Post Debridement (cm) - Width 1.0 -Post Debridement (cm) - Depth 0.5 -Total Square (Post) (cm) 2.50 -Area of Debridement (cm) - Length 2.5 -Area of Debridement (cm) - Width 1.0 -Total Square (Area) (cm) 2.50 -Tunneling No -Undermining/Tunneling No -Circular Undermining No -Wound/Ulcer Outcome Not Healed -Ulcer Cleansing Rinsed/ Irrigated with Saline -Foul Odor after Cleansing No -Bioengineered Tissue Yes -Type of Bioengineered Tissue Epifix -Expiration Date 04/22/25 -Product Lot Number [id number] -Percent Used 100 -Lot number of Saline Used [id number] -Bleeding Controlled with Pressure -Offloading Yes -Type of Offloading Surgical Shoe -Treatment Response Procedure Tolerated Well -Debridement - Subq, 1st 20sq cm No -Apply Skin Sub - 1st 25 sq cm - Feet 1 -Epifix (per sq cm) 4 #13 LEFT MEDIAL PLANTAR -Time 12:43 -Correct Patient Yes -Correct Side, Site, Position Yes -Correct Procedure Yes -Procedure Performed Yes -Type of Procedure Debridement -Clinical Debridement Subcutaneous -Tissue Removed Subcutaneous -Post Debridement (cm) - Length 3.0 -Post Debridement (cm) - Width 3.3 -Post Debridement (cm) - Depth 0.3 -Total Square (Post) (cm) 9.90 -Area of Debridement (cm) - Length 3.0 -Area of Debridement (cm) - Width 3.3 -Total Square (Area) (cm) 9.90 -Tunneling No -Undermining/Tunneling No -Circular Undermining No -Wound/Ulcer Outcome Not Healed -Ulcer Cleansing Rinsed/ Irrigated with Saline -Foul Odor after Cleansing No -Bioengineered Tissue No -Bleeding Controlled with Pressure -Offloading No -Treatment Response Procedure Tolerated Well -Debridement - Subq, 1st 20sq cm No [See Physician Procedure note for Specifics] Pain Scale: 0-10 Numeric [Pain] -Is Patient Pain Free? Yes Musculoskeletal: No Tenderness to Palpation of Joints or Extremities, - - Right fifth ray resection, left TMA Neurological: - - Lack of epicritic sensation consistent with neuropathy Psych/Mental Status: Normal Affect, Appropriate Debridement Note Post-Debridement Measurements/Treatment WC - Nurse 2 - General Ulcer CM Notes Start: 10/25/20 10:38 Freq: Status: Active Protocol: Activity Type Activity Date Activity User E-Sign Co-Sign Detail Recorded Client Recorded Date Recorded By Document 10/25/20 11:09 CASSY [id number] 10/25/20 11:26 Document 11/01/20 12:19 [id number] 11/01/20 12:32 Document 11/07/20 12:20 [id number] 11/07/20 12:45 CASSY 10/25/20 11/01/20 11/07/20 11:09 12:19 12:20 Wound Center Nurse 2 #15 Right medial cluster ankle -Time 12:20 -Correct Patient Yes -Correct Side, Site, Position Yes -Correct Procedure Yes -Procedure Performed Yes -Type of Procedure Debridement -Clinical Debridement Subcutaneous -Tissue Removed Subcutaneous -Post Debridement (cm) - Length 2.9 -Post Debridement (cm) - Width 2.1 -Post Debridement (cm) - Depth 0.1 -Total Square (Post) (cm) 6.09 -Area of Debridement (cm) - Length 2.9 -Area of Debridement (cm) - Width 2.1 -Total Square (Area) (cm) 6.09 -Tunneling No -Undermining/Tunneling No -Circular Undermining No -Wound/Ulcer Outcome Not Healed -Ulcer Cleansing Rinsed/ Irrigated with Saline -Foul Odor after Cleansing No -Bioengineered Tissue No -Bleeding Controlled with Pressure -Offloading No -Treatment Response Procedure Tolerated Well -Debridement - Subq, 1st 20sq cm Yes -Debridement, SubQ, ea addt'l 20sq cm 2 or part thereof #14 Left Ant Mccloud -Time 12:21 -Correct Patient Yes -Correct Side, Site, Position Yes -Correct Procedure Yes -Procedure Performed Yes -Type of Procedure Debridement -Clinical Debridement Subcutaneous -Tissue Removed Subcutaneous -Post Debridement (cm) - Length 1.1 -Post Debridement (cm) - Width 1.0 -Post Debridement (cm) - Depth 0.1 -Total Square (Post) (cm) 1.10 -Area of Debridement (cm) - Length 1.1 -Area of Debridement (cm) - Width 1.0 -Total Square (Area) (cm) 1.10 -Tunneling No -Undermining/Tunneling No -Circular Undermining No -Wound/Ulcer Outcome Not Healed -Ulcer Cleansing Rinsed/ Irrigated with Saline -Foul Odor after Cleansing No -Bioengineered Tissue No -Bleeding Controlled with Pressure -Offloading Yes -Type of Offloading Total Contact Cast (TCC) - Left ($) -Treatment Response Procedure Tolerated Well -Debridement - Subq, 1st 20sq cm No #11 R. Grt Toe -Time 11:10 12:23 -Correct Patient No No -Correct Side, Site, Position No No -Correct Procedure No No -Procedure Performed No No -Post Debridement (cm) - Length 0 -Post Debridement (cm) - Width 0 -Post Debridement (cm) - Depth 0 -Total Square (Post) (cm) 0 -Area of Debridement (cm) - Length 0 -Area of Debridement (cm) - Width 0 -Total Square (Area) (cm) 0 -Tunneling No -Undermining/Tunneling No -Circular Undermining No -Wound/Ulcer Outcome Not Healed Healed- Epithelialized -Ulcer Cleansing Rinsed/ Irrigated with Saline -Foul Odor after Cleansing No -Bioengineered Tissue No -Bleeding Controlled with Pressure -Offloading Yes -Type of Offloading Surgical Shoe -Treatment Response Procedure Tolerated Well -Debridement - Subq, 1st 20sq cm No #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 -Time 12:05 12:24 12:34 -Correct Patient Yes Yes Yes -Correct Side, Site, Position Yes Yes Yes -Correct Procedure Yes Yes Yes -Procedure Performed Yes Yes Yes -Type of Procedure Debridement Debridement Debridement -Clinical Debridement Subcutaneous Subcutaneous Subcutaneous -Tissue Removed Subcutaneous Subcutaneous Subcutaneous -Post Debridement (cm) - Length 10 4.5 9 -Post Debridement (cm) - Width 7 2.5 4 -Post Debridement (cm) - Depth 0.1 0.1 0.1 -Total Square (Post) (cm) 70 11.25 36 -Area of Debridement (cm) - Length 10 4.5 9 -Area of Debridement (cm) - Width 7 2.5 4 -Total Square (Area) (cm) 70 11.25 36 -Tunneling No No No -Undermining/Tunneling No No No -Circular Undermining No No No -Wound/Ulcer Outcome Not Healed Not Healed Not Healed -Ulcer Cleansing Rinsed/ Rinsed/ Rinsed/ Irrigated with Irrigated with Irrigated with Saline Saline Saline -Foul Odor after Cleansing No No No -Bioengineered Tissue No No No -Bleeding Controlled with Pressure Pressure Pressure -Other 10% of the ulcer was debrided per Dr Sanamone -Offloading Yes No No -Type of Offloading Surgical Shoe -Treatment Response Procedure Procedure Procedure Tolerated Well Tolerated Well Tolerated Well -Debridement - Subq, 1st 20sq cm Yes No No #14 RIGHT LATERAL PLANTAR FOOT -Time 11:11 12:19 12:34 -Correct Patient Yes Yes Yes -Correct Side, Site, Position Yes Yes Yes -Correct Procedure Yes Yes Yes -Procedure Performed Yes Yes Yes -Type of Procedure Debridement Debridement Debridement -Clinical Debridement Subcutaneous Subcutaneous Subcutaneous -Tissue Removed Subcutaneous Subcutaneous Subcutaneous -Post Debridement (cm) - Length 2.6 2.8 2.5 -Post Debridement (cm) - Width 0.8 0.8 1.0 -Post Debridement (cm) - Depth 0.4 0.4 0.5 -Total Square (Post) (cm) 2.08 2.24 2.50 -Area of Debridement (cm) - Length 2.6 2.8 2.5 -Area of Debridement (cm) - Width 0.8 0.8 1.0 -Total Square (Area) (cm) 2.08 2.24 2.50 -Tunneling No No No -Undermining/Tunneling No No No -Circular Undermining No No No -Wound/Ulcer Outcome Not Healed Not Healed Not Healed -Ulcer Cleansing Rinsed/ Rinsed/ Rinsed/ Irrigated with Irrigated with Irrigated with Saline Saline Saline -Foul Odor after Cleansing No No No -Bioengineered Tissue No Yes Yes -Type of Bioengineered Tissue Epifix Epifix -Expiration Date 05/23/25 04/22/25 -Product Lot Number [id number] -Percent Used 100 100 -Lot number of Saline Used [id number] -Bleeding Controlled with Pressure Pressure Pressure -Offloading Yes Yes Yes -Type of Offloading Surgical Shoe Surgical Shoe Surgical Shoe -Treatment Response Procedure Procedure Procedure Tolerated Well Tolerated Well Tolerated Well -Debridement - Subq, 1st 20sq cm No No No -Apply Skin Sub - 1st 25 sq cm - Feet 1 1 -Epifix (per sq cm) 4 4 #13 LEFT MEDIAL PLANTAR -Time 11:12 12:26 12:43 -Correct Patient Yes Yes Yes -Correct Side, Site, Position Yes Yes Yes -Correct Procedure Yes Yes Yes -Procedure Performed Yes Yes Yes -Type of Procedure Debridement Debridement Debridement -Clinical Debridement Subcutaneous Subcutaneous Subcutaneous -Tissue Removed Subcutaneous Subcutaneous Subcutaneous -Post Debridement (cm) - Length 2.6 2.8 3.0 -Post Debridement (cm) - Width 3.4 3.6 3.3 -Post Debridement (cm) - Depth 0.4 0.5 0.3 -Total Square (Post) (cm) 8.84 10.08 9.90 -Area of Debridement (cm) - Length 2.6 2.8 3.0 -Area of Debridement (cm) - Width 3.4 3.6 3.3 -Total Square (Area) (cm) 8.84 10.08 9.90 -Tunneling No No No -Undermining/Tunneling No No No -Circular Undermining No No No -Wound/Ulcer Outcome Not Healed Not Healed Not Healed -Ulcer Cleansing Rinsed/ Rinsed/ Rinsed/ Irrigated with Irrigated with Irrigated with Saline Saline Saline -Foul Odor after Cleansing No No No -Bioengineered Tissue No No No -Bleeding Controlled with Pressure Pressure Pressure -Offloading Yes Yes No -Type of Offloading Surgical Shoe Total Contact Cast (TCC) - Left ($) -Treatment Response Procedure Procedure Procedure Tolerated Well Tolerated Well Tolerated Well -Debridement - Subq, 1st 20sq cm No No No Pain Scale: 0-10 Numeric Is Patient Pain Free? Yes Yes WC - Nurse 3 - General Ulcer D/C NN Start: 10/25/20 10:38 Freq: Status: Active Protocol: Activity Type Activity Date Activity User E-Sign Co-Sign Detail Recorded Client Recorded Date Recorded By Document 10/25/20 11:42 DL [id number] 10/25/20 11:46 DL Document 11/01/20 12:41 [id number] 11/01/20 12:42 10/25/20 11/01/20 11:42 12:41 Wound Care Nurse 3 #11 R. Grt Toe -Ulcer Cleansing Rinsed/ Irrigated with Saline -Foul Odor after Cleansing No -Primary Dressing Applied Aquacel AG 4x4 -Primary Dressing Covered/Secured with Dry Gauze & Roll Gauze, Secured with Tape -Aquacel AG 4x4 1 #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 -Ulcer Cleansing Wound Cleanser Rinsed/ Irrigated with Saline -Foul Odor after Cleansing No No -Primary Dressing Applied C Hydrogel ($), NonAdherent Contact Layer -Other Dressing Hydrogel/ adaptic -Primary Dressing Covered/Secured with Dry Gauze & Dry Gauze & Roll Gauze, Roll Gauze, Secured with Secured with Tape Tape #14 RIGHT LATERAL PLANTAR FOOT -Ulcer Cleansing Rinsed/ Rinsed/ Irrigated with Irrigated with Saline Saline -Foul Odor after Cleansing No No -Other Dressing aquacel ag -Primary Dressing Covered/Secured with Dry Gauze & Dry Gauze & Roll Gauze, Roll Gauze, Secured with Secured with Tape Tape #13 LEFT MEDIAL PLANTAR -Ulcer Cleansing Rinsed/ Rinsed/ Irrigated with Irrigated with Saline Saline -Foul Odor after Cleansing No No -Primary Dressing Applied Aquacel AG 4x4 -Other Dressing aqaucel ag -Primary Dressing Covered/Secured with Dry Gauze & Dry Gauze & Roll Gauze, Roll Gauze, Secured with Secured with Tape Tape -Aquacel AG 4x4 1 Right -Tubular Bandage Single Layer -Size of Tubigrip Used Size E -Size E ($) 1 Treatment Response Procedure Tolerated Well Pain Scale: 0-10 Numeric Is Patient Pain Free? Yes Yes WC - Visit Discharge Discharge Condition Stable Stable Ambulatory Status Ambulatory Ambulatory Transportation Private Auto Ambulance Medication Reconcilliation completed & Yes provided to patient/care provider Clinical Summary of Care Provided Yes Wound debrided: Leg cluster Laterality: Right Wound Grade/Stage: [place] 1 Type of Debridement: Excisional debridement Anesthesia Used: 4% Lidocaine Solution Depth: in the subcutaneous layer Percentage of wound debrided: 10 Instrument Used: 3mm curette Tissue Removed: Tissue removed includes fibrous, devitalized, biofilm, and slough tissue Severity: Fat Layer Exposed Amount of bleeding with debridement: Mild Bleeding Controlled with: Pressure Patient tolerated procedure well - Additional Wound Wound debrided: Medial ankle cluster Laterality: Right Wound Grade/Stage: [place] 1 Type of Debridement: Excisional debridement Anesthesia Used: 4% Lidocaine Solution Depth: in the subcutaneous layer Percentage of wound debrided: 80 Instrument Used: 3mm curette Tissue Removed: Tissue removed includes fibrous, devitalized, biofilm, and slough tissue Severity: Fat Layer Exposed Amount of bleeding with debridement: Mild Bleeding Controlled with: Pressure Patient tolerated procedure: Patient tolerated procedure well - Additional Wound Wound debrided: Lateral foot Laterality: Right Wound Grade/Stage: [place] 1 Type of Debridement: Excisional debridement Anesthesia Used: 4% Lidocaine Solution Depth: in the subcutaneous layer Percentage of wound debrided: 100 Instrument Used: 3mm curette Tissue Removed: Tissue removed includes fibrous, devitalized, biofilm, and slough tissue Severity: Fat Layer Exposed Amount of bleeding with debridement: Mild Bleeding Controlled with: Pressure Patient tolerated procedure: Patient tolerated procedure well - Additional Wound Wound debrided: Left anterior mccloud Laterality: Left Wound Grade/Stage: [place] 1 Type of Debridement: Excisional debridement Anesthesia Used: 4% Lidocaine Solution Depth: in the subcutaneous layer Percentage of wound debrided: 100 Instrument Used: 3mm curette Tissue Removed: Tissue removed includes fibrous, devitalized, biofilm, and slough tissue Severity: Fat Layer Exposed Amount of bleeding with debridement: Mild Bleeding Controlled with: Pressure - Additional Wound Wound debrided: Left plantar foot Laterality: Left Wound Grade/Stage: [place] 3 Type of Debridement: Excisional debridement Anesthesia Used: 4% Lidocaine Solution Depth: in the subcutaneous layer Percentage of wound debrided: 100 Instrument Used: 7mm curette Tissue Removed: Tissue removed includes fibrous, devitalized, biofilm, and slough tissue Severity: Fat Layer Exposed Amount of bleeding with debridement: Mild Bleeding Controlled with: Pressure Patient tolerated procedure: Patient tolerated procedure well Assessment/Plan Active Problems (Last Reviewed 10/31/20 @ 16:[address] 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) Tinea unguium (Chronic) Other hereditary and idiopathic neuropathies (Chronic) Ulcer of right foot with fat layer exposed (Chronic) Tobacco dependence due to cigarettes (Chronic) Obesity (Chronic) Chronic ulcer of left foot with fat layer exposed (Chronic) Diabetic ulcer of left foot (Chronic) Delayed wound healing (Chronic) Difficulty in walking, not elsewhere classified (Chronic) History of transmetatarsal amputation of left foot (Chronic) Ulcer of right foot with fat layer exposed (Chronic) 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 Right foot ulcer w/ fat layer exposed at s/p fifth ray resection site (grade 1). Right leg ulcer, grade 1. Right medial ankle cluster grade 1. Morbid obesity. Diabetes type 2 with complications. Walking difficulty and impairment. Delayed healing Plan: I reviewed and discussed his case. Subcutaneous excisional debridement was performed as noted in the clinical panel to the left foot and right foot. His ulcer status is stable to bilateral foot however increased ulcer size has been noted since he has been discharged home. His leg edema is slightly more compared to when he was in the transitional care unit. To elevate and reduce salt intake. To continue with Tubigrip compression garments. He is recently not been using these and he will resume use today. I recommend application of advanced wound healing product to the right foot. Prior authorization was confirmed. The indications, benefits, anticipated application and healing time management were reviewed in detail. Verbal consent was obtained in the procedure for today. Epigraft was applied according to standard protocol and was further secured with a wound veil and Steri-Strips. It is noted that this is the same application site that was previously improved last year however there was time gap did not allow subsequent applications during his initial delineated approval time. The reason there was a gap included hospitalization and further rehabilitation in our transitional care unit. Therefore it was reapplied today. He was advised to keep this dressing of the right foot clean, dry, and intact until follow-up next week. Right leg clusters had hydrogel applied and were dressed with gauze. Aquacel Ag was applied to the left foot and he provided verbal consent for a left total contact cast. This was applied in a well padded neutral position according standard protocol. He tolerated this well. He was also advised to keep this clean, dry, and intact until follow-up next week. Compliance was discussed. This is imperative to proceed in a positive direction in regards to his wound healing. I discussed the need for serious offloading for limb salvage purposes. He has tried various shoes and walking boots. He presents with full weightbearing and diabetic shoes again today which is not recommended. He has struggled with the use of such as a walker of a knee roller. A motorized scooter is also an option and at this time I recommend this. This is in process and he is been referred to a facility in [place]. The application process is still pending. His noninvasive vascular studies were reviewed from which were normal and intervention was previously not recommended. I advised him to follow-up with all of Dr. Bonilla's recommendations to optimize his healing process. He has for help scheduling this because he has not been able to do this. He has recently been seen and intervention is planned for arterial optimization. An updated bilateral duplex was also recommended to help with planning. His new injuries are noted. Discussed padding of medial right ankle well to prevent further rubbing on total contact cast to left lower extremity. To continue to work on decreasing glucose levels. He has a history of hyperglycemia. To continue follow-up with primary care physician. To continue to follow-up with nutritional services. To continue to follow-up as advised. He is currently making adjustments with his eating habits. He also follows up with fiction and nonfiction author, Dr. Arteaga who is working with him to reduce his hemoglobin A1c with medication and behavioral changes. Smoking cessation was discussed in detail and he was advised on the healing impairment associated with this. To continue with his smoking cessation program. I also recommend discontinuation of nicotine products for this also contributes to small vessel contraction. I answered all of his questions today. . To return to clinic in 1 week or call sooner if questions, concerns, or progressive worsening. He will follow-up with Dr. Claudio. I answered all his questions. Note: [employer] speech recognition computer specialist software was used to create portions of this document. Sound-alike and misspelled words, as well as other computer specialist errors may be contained in the documentation. 10 to 19 minutes was spent on this encounter. This included both face to face and non face to face care, which includes but not limited to time preparing for the visit (which includes but not limited to reviewing medical record, any pertinent paperwork, as well as previous imaging and/or test results), reviewing/obtaining the noted history, performing the noted examination, counseling and providing education to the patient as well as to patient's family and/or patient caregivers per patient request. This also includes ordering any medication(s), test(s), and/or procedure(s) as indicated and as documented in the medical record, interpreting / sharing this information when indicated (and with patient's permission) as documented, communicating with other healthcare providers as needed/as requested, the time documenting information in the medical record, as well as any further care coordination.
[2020-11-15 13:35] VITALS: BP 155/76; PULSE 95; RESP 18; TEMP 36.3; BMI 47.2
--- NOTE | 2020-11-15 15:06 | PCM.WC.PN ---
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 Status: Chronic Code(s): L97.912 - Non-pressure chronic ulcer of unspecified part of right lower leg with fat layer exposed (4) Tobacco dependence due to cigarettes Status: Chronic Code(s): F17.210 - Nicotine dependence, cigarettes, uncomplicated (5) Obesity Status: Chronic Qualifiers: Obesity type: due to excess calories Obesity classification: adult class 3 (BMI >= 40) Serious obesity comorbidity presence: with serious comorbidity Body mass index: BMI 45.0-49.9 Qualified Code(s): E66.01 - Morbid (severe) obesity due to excess calories; Z68.42 - Body mass index [BMI] 45.0-49.9, adult Code(s): E66.9 - Obesity, unspecified (6) Chronic ulcer of left foot with fat layer exposed Status: Chronic Code(s): L97.522 - Non-pressure chronic ulcer of other part of left foot with fat layer exposed (7) Difficulty in walking, not elsewhere classified Status: Chronic Code(s): R26.2 - Difficulty in walking, not elsewhere classified (8) History of transmetatarsal amputation of left foot Status: Chronic Code(s): Z89.432 - Acquired absence of left foot (9) Ulcer of right foot with fat layer exposed Status: Chronic Code(s): L97.512 - Non-pressure chronic ulcer of other part of right foot with fat layer exposed (10) Ulcer of left lower extremity with fat layer exposed Status: Chronic Code(s): L97.922 - Non-pressure chronic ulcer of unspecified part of left lower leg with fat layer exposed Type of Wound Date of Service: 11/15/20 Chief Complaint: Diabetic left foot ulceration, [place] Grade 3. right and left leg ulcers. Right foot ulcer (prior surgery). left foot ulcer History of Wound: This 65-year-old male with multiple comorbidities was seen today for bilateral foot ulcer. His left foot ulcer onset was 3-17-2020. He is previously known to me and had a left transmetatarsal amputation performed previously. He also had a 5th ray resection performed on his right foot and he has residual ulcer at that site. He also has ulcers in a clustered manner to his right and left legs and also a newer ulceration noted to medial right ankle cluster. He denies diarrhea, rash, fever, chill, nausea, vomiting. He completed hyperbaric oxygen therapy sessions. He denies redness or odor. He denies calf pain. He continues to struggle with edema management, smoking cessation, nutrition, and maintaining reduced weightbearing activity. He got his left total contact cast wet and his dressings were saturated upon arrival today. He also removed his right foot epifix during bathing yesterday. He is still trying to obtain an electric wheelchair. Progress of Wound: stable, all - Physical Exam Vital Signs Temp Pulse Resp BP 97.3 F L 95 18 155/76 H 11/15/20 13:35 11/15/20 13:35 11/15/20 13:35 11/15/20 13:35 General: Alert, Oriented x3, Cooperative, No apparent distress HEENT: Atraumatic Extremities: No cyanosis, Capillary Refill Less than 3 Seconds, No Calf Tenderness, Diminished Peripheral Pulses, Edema - Bilateral lower extremities, - - The left foot ulcer site is very moist and macerated with significant callus formation. The base is granular without deep tissue exposure Skin: Ulcer/ Wound - No purulence, erythema, streaking, odor, infection. Peripheral epithelialization is noted to the right foot. His cluster right and left leg ulcer sites also have improvement with granulation base. There is no deep tissue exposed or maceration. Wound Measurements and Assessment WC - Nurse 1 - General Ulcer Measurement Start: 10/25/20 10:38 Freq: Status: Active Protocol: Activity Type Activity Date Activity User E-Sign Co-Sign Detail Recorded Client Recorded Date Recorded By Document 11/15/20 13:35 RB [id number] 11/15/20 13:50 RB 11/15/20 13:35 Wound Center Nurse 1 [Ulcer Assessment] #16 right medial cluster -Combined with other wound No -Current Size (cm) - Length 2.9 -Current Size (cm) - Width 2 -Current Size (cm) - Depth 0.2 -Total Square Cm 5.8 -Tunneling No -Undermining/Tunneling No -Circular Undermining No -Exudate Amt Small -Exudate Type Serosanguineous -Wound Margin Distinct, Outline Attached -Granulation Amt Small (1-33%) -Granulation Quality [place] -Slough/Fibrin Yes -Necrosis Amt Large (67-100%) -Necrotic Tissue Type Adherent Slough -Structure Exposed N/A -Texture (Maria M-wound Skin Appearance) Assessed, Scarring -Moisture (Maria M-wound Skin Appearance Assessed ) -Color (Maria M-wound Skin Appearance) Assessed -Temperature (Maria M-wound Skin No Abnormality Appearance) (Pt Warm) -Tenderness on Palpation (Maria M-wound No Skin Appearance) -Ulcer Cleansing Wound Cleanser -Foul Odor after Cleansing No -Anesthetic Used 4% Lidocaine Solution #14 Left Ant Mccloud -Combined with other wound No -Current Size (cm) - Length 0.1 -Current Size (cm) - Width 0.1 -Current Size (cm) - Depth 0.1 -Total Square Cm 0.01 -Tunneling No -Undermining/Tunneling No -Circular Undermining No -Exudate Amt None Present -Wound Margin Flat & Intact -Granulation Amt Small (1-33%) -Granulation Quality [place] -Necrosis Amt Medium (34-66%) -Necrotic Tissue Type Adherent Slough -Structure Exposed N/A -Texture (Maria M-wound Skin Appearance) Assessed, Scarring -Moisture (Maria M-wound Skin Appearance Assessed ) -Color (Maria M-wound Skin Appearance) Assessed -Temperature (Maria M-wound Skin No Abnormality Appearance) (Pt Warm) -Tenderness on Palpation (Maria M-wound No Skin Appearance) -Ulcer Cleansing Wound Cleanser -Foul Odor after Cleansing No -Anesthetic Used 4% Lidocaine 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 -Combined with other wound No -Current Size (cm) - Length 19.4 -Current Size (cm) - Width 42.5 -Current Size (cm) - Depth 0.1 -Total Square Cm 824.50 -Tunneling No -Undermining/Tunneling No -Circular Undermining No -Exudate Amt Medium -Exudate Type Serosanguineous -Wound Margin Flat & Intact -Granulation Amt Medium (34-66%) -Granulation Quality [place] -Slough/Fibrin Yes -Necrosis Amt Medium (34-66%) -Necrotic Tissue Type Adherent Slough -Structure Exposed N/A -Texture (Maria M-wound Skin Appearance) Scarring -Moisture (Maria M-wound Skin Appearance Assessed ) -Color (Maria M-wound Skin Appearance) Assessed -Temperature (Maria M-wound Skin No Abnormality Appearance) (Pt Warm) -Tenderness on Palpation (Maria M-wound No Skin Appearance) -Ulcer Cleansing Wound Cleanser -Foul Odor after Cleansing No -Anesthetic Used 4% Lidocaine Solution #15 right lateral plantar -Combined with other wound No -Current Size (cm) - Length 1.2 -Current Size (cm) - Width 0.3 -Current Size (cm) - Depth 0.3 -Total Square Cm 0.36 -Tunneling No -Undermining/Tunneling Yes -Undermining/Tunneling Starts (O' 3 clock) -Undermining/Tunneling Ends (O'clock) 4 -Maximum Distance (cm) 0.2 -Exudate Amt Small -Exudate Type Serosanguineous -Wound Margin Flat & Intact -Granulation Amt Medium (34-66%) -Granulation Quality [place] -Slough/Fibrin Yes -Necrosis Amt Medium (34-66%) -Necrotic Tissue Type Adherent Slough -Structure Exposed N/A -Texture (Maria M-wound Skin Appearance) Assessed, Scarring -Moisture (Maria M-wound Skin Appearance Assessed ) -Color (Maria M-wound Skin Appearance) Assessed -Temperature (Maria M-wound Skin No Abnormality Appearance) (Pt Warm) -Tenderness on Palpation (Maria M-wound No Skin Appearance) -Ulcer Cleansing Wound Cleanser -Foul Odor after Cleansing No -Anesthetic Used 4% Lidocaine Solution #13 LEFT MEDIAL PLANTAR -Combined with other wound No -Current Size (cm) - Length 2.6 -Current Size (cm) - Width 3.4 -Current Size (cm) - Depth 0.3 -Total Square Cm 8.84 -Tunneling No -Undermining/Tunneling No -Circular Undermining No -Exudate Amt Small -Exudate Type Serosanguineous -Wound Margin Flat & Intact -Granulation Amt Medium (34-66%) -Granulation Quality [place] -Slough/Fibrin Yes -Necrosis Amt Medium (34-66%) -Necrotic Tissue Type Adherent Slough -Structure Exposed N/A -Texture (Maria M-wound Skin Appearance) Assessed -Moisture (Maria M-wound Skin Appearance Dry/Scaly ) -Color (Maria M-wound Skin Appearance) Assessed -Temperature (Maria M-wound Skin No Abnormality Appearance) (Pt Warm) -Tenderness on Palpation (Maria M-wound No Skin Appearance) -Ulcer Cleansing Wound Cleanser -Foul Odor after Cleansing No -Anesthetic Used 4% Lidocaine Solution [Edema Assessment] -Lower Limb Edema Present Yes -Right Calf (cm) 48.1 -Right Ankle (cm) 26.3 -Left Calf (cm) 48.4 -Left Ankle (cm) 28.3 WC - Nurse 2 - General Ulcer CM Notes Start: 10/25/20 10:38 Freq: Status: Active Protocol: Activity Type Activity Date Activity User E-Sign Co-Sign Detail Recorded Client Recorded Date Recorded By Document 11/15/20 14:00 [id number] 11/15/20 14:21 [email or web address] 11/15/20 14:00 Wound Center Nurse 2 [Procedure/Treatment] #16 right medial cluster -Time 14:12 -Correct Patient Yes -Correct Side, Site, Position Yes -Correct Procedure Yes -Procedure Performed Yes -Type of Procedure Debridement -Clinical Debridement Subcutaneous -Tissue Removed Subcutaneous -Post Debridement (cm) - Length 3 -Post Debridement (cm) - Width 2 -Post Debridement (cm) - Depth 0.2 -Total Square (Post) (cm) 6 -Area of Debridement (cm) - Length 3 -Area of Debridement (cm) - Width 2 -Total Square (Area) (cm) 6 -Tunneling No -Undermining/Tunneling No -Circular Undermining No -Wound/Ulcer Outcome Not Healed -Ulcer Cleansing Rinsed/ Irrigated with Saline -Foul Odor after Cleansing No -Bioengineered Tissue No -Bleeding Controlled with Pressure -Offloading No -Treatment Response Procedure Tolerated Well -Debridement - Subq, 1st 20sq cm No #14 Left Ant Mccloud -Time 14:12 -Correct Patient Yes -Correct Side, Site, Position Yes -Correct Procedure Yes -Procedure Performed Yes -Type of Procedure Debridement -Clinical Debridement Subcutaneous -Tissue Removed Subcutaneous -Post Debridement (cm) - Length 0.2 -Post Debridement (cm) - Width 0.2 -Post Debridement (cm) - Depth 0.1 -Total Square (Post) (cm) 0.04 -Area of Debridement (cm) - Length 0.2 -Area of Debridement (cm) - Width 0.2 -Total Square (Area) (cm) 0.04 -Tunneling No -Undermining/Tunneling No -Circular Undermining No -Wound/Ulcer Outcome Not Healed -Ulcer Cleansing Rinsed/ Irrigated with Saline -Foul Odor after Cleansing No -Bioengineered Tissue No -Bleeding Controlled with Pressure -Offloading No -Treatment Response Procedure Tolerated Well -Debridement - Subq, 1st 20sq cm No #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 -Time 14:13 -Correct Patient Yes -Correct Side, Site, Position Yes -Correct Procedure Yes -Procedure Performed Yes -Type of Procedure Debridement -Clinical Debridement Subcutaneous -Tissue Removed Subcutaneous -Post Debridement (cm) - Length 10 -Post Debridement (cm) - Width 2 -Post Debridement (cm) - Depth 0.1 -Total Square (Post) (cm) 20 -Area of Debridement (cm) - Length 10 -Area of Debridement (cm) - Width 2 -Total Square (Area) (cm) 20 -Tunneling No -Undermining/Tunneling No -Circular Undermining No -Wound/Ulcer Outcome Not Healed -Ulcer Cleansing Rinsed/ Irrigated with Saline -Foul Odor after Cleansing No -Bioengineered Tissue No -Bleeding Controlled with Pressure -Offloading No -Treatment Response Procedure Tolerated Well -Debridement - Subq, 20sq cm No #15 right lateral plantar -Time 14:04 -Correct Patient Yes -Correct Side, Site, Position Yes -Correct Procedure Yes -Procedure Performed Yes -Type of Procedure Debridement -Clinical Debridement Subcutaneous -Tissue Removed Subcutaneous -Post Debridement (cm) - Length 1.3 -Post Debridement (cm) - Width 0.4 -Post Debridement (cm) - Depth 0.3 -Total Square (Post) (cm) 0.52 -Area of Debridement (cm) - Length 1.3 -Area of Debridement (cm) - Width 0.4 -Total Square (Area) (cm) 0.52 -Tunneling No -Undermining/Tunneling No -Circular Undermining No -Wound/Ulcer Outcome Not Healed -Ulcer Cleansing Rinsed/ Irrigated with Saline -Foul Odor after Cleansing No -Bioengineered Tissue Yes -Type of Bioengineered Tissue Epifix -Expiration Date 05/23/25 -Product Lot Number [id number] -Percent Used 100 -Lot number of Saline Used [id number] -Bleeding Controlled with Pressure -Offloading No -Type of Offloading Surgical Shoe -Treatment Response Procedure Tolerated Well -Debridement - Subq, 1st 20sq cm No -Apply Skin Sub - 1st 25 sq cm - Feet 1 -Epifix (per sq cm) 4 #13 LEFT MEDIAL PLANTAR -Time 14:11 -Correct Patient Yes -Correct Side, Site, Position Yes -Correct Procedure Yes -Procedure Performed Yes -Type of Procedure Debridement -Clinical Debridement Subcutaneous -Tissue Removed Subcutaneous -Post Debridement (cm) - Length 3.9 -Post Debridement (cm) - Width 2.9 -Post Debridement (cm) - Depth 0.3 -Total Square (Post) (cm) 11.31 -Area of Debridement (cm) - Length 3.9 -Area of Debridement (cm) - Width 2.9 -Total Square (Area) (cm) 11.31 -Tunneling No -Undermining/Tunneling No -Circular Undermining No -Wound/Ulcer Outcome Not Healed -Ulcer Cleansing Rinsed/ Irrigated with Saline -Foul Odor after Cleansing No -Bioengineered Tissue No -Bleeding Controlled with Pressure -Offloading No -Treatment Response Procedure Tolerated Well -Debridement - Subq, 1st 20sq cm Yes -Debridement, SubQ, ea addt'l 20sq cm 1 or part thereof [See Physician Procedure note for Specifics] Pain Scale: 0-10 Numeric [Pain] -Is Patient Pain Free? Yes WC - Nurse 3 - General Ulcer D/C NN Start: 10/25/20 10:38 Freq: Status: Active Protocol: Activity Type Activity Date Activity User E-Sign Co-Sign Detail Recorded Client Recorded Date Recorded By Document 11/15/20 14:[address] [facility] [id number] 11/15/20 14:[address] [facility] 11/15/20 14:31 Wound Care Nurse 3 [Wound Dressing] #16 right medial cluster -Primary Dressing Applied Other -Other Dressing epifix -Primary Dressing Covered/Secured Dry Gauze & with Roll Gauze, Secured with Tape #14 Left Ant Mccloud -Ulcer Cleansing Rinsed/ Irrigated with Saline -Foul Odor after Cleansing No -Primary Dressing Applied C Hydrogel ($) -Primary Dressing Covered/Secured Dry Gauze & with Roll Gauze, Secured with Tape #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 -Ulcer Cleansing Rinsed/ Irrigated with Saline -Foul Odor after Cleansing No -Primary Dressing Applied C Hydrogel ($) -Primary Dressing Covered/Secured Dry Gauze & with Roll Gauze, Secured with Tape #15 right lateral plantar -Primary Dressing Applied Other -Other Dressing epifix -Primary Dressing Covered/Secured Dry Gauze & with Roll Gauze, Secured with Tape #13 LEFT MEDIAL PLANTAR -Ulcer Cleansing Rinsed/ Irrigated with Saline -Foul Odor after Cleansing No -Primary Dressing Applied [place] -Primary Dressing Covered/Secured Dry Gauze & with Roll Gauze, Secured with Tape -[place] 1 [Compression Applied] Left -Tubular Bandage Single Layer -Size of Tubigrip Used Size F -Size F ($) 1 Right -Tubular Bandage Single Layer -Size of Tubigrip Used Size F -Size F ($) 1 [Post Procedure Tolerated] -Treatment Response Procedure Tolerated Well WC - Visit Discharge [Visit Discharge Information] -Discharge Condition Stable -Ambulatory Status Ambulatory,Cane -Transportation Private Auto [Facility Notification] -Facility Type Home Health Musculoskeletal: Muscle Wasting, - - Left transmetatarsal amputation and right fifth ray resection. Compartments remain soft to bilateral lower extremities Neurological: - - Lack of normal epicritic sensation light touch is consistent with neuropathy status Psych/Mental Status: Normal Affect, Appropriate Debridement Note Post-Debridement Measurements/Treatment - Nurse 2 - General Ulcer CM Notes Start: 10/25/20 10:38 Freq: Status: Active Protocol: Activity Type Activity Date Activity User E-Sign Co-Sign Detail Recorded Client Recorded Date Recorded By Document 10/25/20 11:09 [id number] 10/25/20 11:26 Document 11/01/20 12:19 [id number] 11/01/20 12:32 Document 11/07/20 12:20 [id number] 11/07/20 12:45 Document 11/15/20 14:00 [id number] 11/15/20 14:21 10/25/20 11/01/20 11/07/20 11:09 12:19 12:20 Wound Center Nurse 2 #16 right medial cluster -Time 12:20 -Correct Patient Yes -Correct Side, Site, Position Yes -Correct Procedure Yes -Procedure Performed Yes -Type of Procedure Debridement -Clinical Debridement Subcutaneous -Tissue Removed Subcutaneous -Post Debridement (cm) - Length 2.9 -Post Debridement (cm) - Width 2.1 -Post Debridement (cm) - Depth 0.1 -Total Square (Post) (cm) 6.09 -Area of Debridement (cm) - Length 2.9 -Area of Debridement (cm) - Width 2.1 -Total Square (Area) (cm) 6.09 -Tunneling No -Undermining/Tunneling No -Circular Undermining No -Wound/Ulcer Outcome Not Healed -Ulcer Cleansing Rinsed/ Irrigated with Saline -Foul Odor after Cleansing No -Bioengineered Tissue No -Bleeding Controlled with Pressure -Offloading No -Treatment Response Procedure Tolerated Well -Debridement - Subq, 1st 20sq cm Yes -Debridement, SubQ, ea addt'l 20sq cm 2 or part thereof #14 Left Ant Mccloud -Time 12:21 -Correct Patient Yes -Correct Side, Site, Position Yes -Correct Procedure Yes -Procedure Performed Yes -Type of Procedure Debridement -Clinical Debridement Subcutaneous -Tissue Removed Subcutaneous -Post Debridement (cm) - Length 1.1 -Post Debridement (cm) - Width 1.0 -Post Debridement (cm) - Depth 0.1 -Total Square (Post) (cm) 1.10 -Area of Debridement (cm) - Length 1.1 -Area of Debridement (cm) - Width 1.0 -Total Square (Area) (cm) 1.10 -Tunneling No -Undermining/Tunneling No -Circular Undermining No -Wound/Ulcer Outcome Not Healed -Ulcer Cleansing Rinsed/ Irrigated with Saline -Foul Odor after Cleansing No -Bioengineered Tissue No -Bleeding Controlled with Pressure -Offloading Yes -Type of Offloading Total Contact Cast (TCC) - Left ($) -Treatment Response Procedure Tolerated Well -Debridement - Subq, 1st 20sq cm No #11 R. Grt Toe -Time 11:10 12:23 -Correct Patient No No -Correct Side, Site, Position No No -Correct Procedure No No -Procedure Performed No No -Post Debridement (cm) - Length 0 -Post Debridement (cm) - Width 0 -Post Debridement (cm) - Depth 0 -Total Square (Post) (cm) 0 -Area of Debridement (cm) - Length 0 -Area of Debridement (cm) - Width 0 -Total Square (Area) (cm) 0 -Tunneling No -Undermining/Tunneling No -Circular Undermining No -Wound/Ulcer Outcome Not Healed Healed- Epithelialized -Ulcer Cleansing Rinsed/ Irrigated with Saline -Foul Odor after Cleansing No -Bioengineered Tissue No -Bleeding Controlled with Pressure -Offloading Yes -Type of Offloading Surgical Shoe -Treatment Response Procedure Tolerated Well -Debridement - Subq, 1st 20sq cm No #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 -Time 12:05 12:24 12:34 -Correct Patient Yes Yes Yes -Correct Side, Site, Position Yes Yes Yes -Correct Procedure Yes Yes Yes -Procedure Performed Yes Yes Yes -Type of Procedure Debridement Debridement Debridement -Clinical Debridement Subcutaneous Subcutaneous Subcutaneous -Tissue Removed Subcutaneous Subcutaneous Subcutaneous -Post Debridement (cm) - Length 10 4.5 9 -Post Debridement (cm) - Width 7 2.5 4 -Post Debridement (cm) - Depth 0.1 0.1 0.1 -Total Square (Post) (cm) 70 11.25 36 -Area of Debridement (cm) - Length 10 4.5 9 -Area of Debridement (cm) - Width 7 2.5 4 -Total Square (Area) (cm) 70 11.25 36 -Tunneling No No No -Undermining/Tunneling No No No -Circular Undermining No No No -Wound/Ulcer Outcome Not Healed Not Healed Not Healed -Ulcer Cleansing Rinsed/ Rinsed/ Rinsed/ Irrigated with Irrigated with Irrigated with Saline Saline Saline -Foul Odor after Cleansing No No No -Bioengineered Tissue No No No -Bleeding Controlled with Pressure Pressure Pressure -Other 10% of the ulcer was debrided per Dr Claudio -Offloading Yes No No -Type of Offloading Surgical Shoe -Treatment Response Procedure Procedure Procedure Tolerated Well Tolerated Well Tolerated Well -Debridement - Subq, 1st 20sq cm Yes No No #15 right lateral plantar -Time 11:11 12:19 12:34 -Correct Patient Yes Yes Yes -Correct Side, Site, Position Yes Yes Yes -Correct Procedure Yes Yes Yes -Procedure Performed Yes Yes Yes -Type of Procedure Debridement Debridement Debridement -Clinical Debridement Subcutaneous Subcutaneous Subcutaneous -Tissue Removed Subcutaneous Subcutaneous Subcutaneous -Post Debridement (cm) - Length 2.6 2.8 2.5 -Post Debridement (cm) - Width 0.8 0.8 1.0 -Post Debridement (cm) - Depth 0.4 0.4 0.5 -Total Square (Post) (cm) 2.08 2.24 2.50 -Area of Debridement (cm) - Length 2.6 2.8 2.5 -Area of Debridement (cm) - Width 0.8 0.8 1.0 -Total Square (Area) (cm) 2.08 2.24 2.50 -Tunneling No No No -Undermining/Tunneling No No No -Circular Undermining No No No -Wound/Ulcer Outcome Not Healed Not Healed Not Healed -Ulcer Cleansing Rinsed/ Rinsed/ Rinsed/ Irrigated with Irrigated with Irrigated with Saline Saline Saline -Foul Odor after Cleansing No No No -Bioengineered Tissue No Yes Yes -Type of Bioengineered Tissue Epifix Epifix -Expiration Date 05/23/25 04/22/25 -Product Lot Number [id number] -Percent Used 100 100 -Lot number of Saline Used [id number] -Bleeding Controlled with Pressure Pressure Pressure -Offloading Yes Yes Yes -Type of Offloading Surgical Shoe Surgical Shoe Surgical Shoe -Treatment Response Procedure Procedure Procedure Tolerated Well Tolerated Well Tolerated Well -Debridement - Subq, 1st 20sq cm No No No -Apply Skin Sub - 1st 25 sq cm - Feet 1 1 -Epifix (per sq cm) 4 4 #13 LEFT MEDIAL PLANTAR -Time 11:12 12:26 12:43 -Correct Patient Yes Yes Yes -Correct Side, Site, Position Yes Yes Yes -Correct Procedure Yes Yes Yes -Procedure Performed Yes Yes Yes -Type of Procedure Debridement Debridement Debridement -Clinical Debridement Subcutaneous Subcutaneous Subcutaneous -Tissue Removed Subcutaneous Subcutaneous Subcutaneous -Post Debridement (cm) - Length 2.6 2.8 3.0 -Post Debridement (cm) - Width 3.4 3.6 3.3 -Post Debridement (cm) - Depth 0.4 0.5 0.3 -Total Square (Post) (cm) 8.84 10.08 9.90 -Area of Debridement (cm) - Length 2.6 2.8 3.0 -Area of Debridement (cm) - Width 3.4 3.6 3.3 -Total Square (Area) (cm) 8.84 10.08 9.90 -Tunneling No No No -Undermining/Tunneling No No No -Circular Undermining No No No -Wound/Ulcer Outcome Not Healed Not Healed Not Healed -Ulcer Cleansing Rinsed/ Rinsed/ Rinsed/ Irrigated with Irrigated with Irrigated with Saline Saline Saline -Foul Odor after Cleansing No No No -Bioengineered Tissue No No No -Bleeding Controlled with Pressure Pressure Pressure -Offloading Yes Yes No -Type of Offloading Surgical Shoe Total Contact Cast (TCC) - Left ($) -Treatment Response Procedure Procedure Procedure Tolerated Well Tolerated Well Tolerated Well -Debridement - Subq, 1st 20sq cm No No No -Debridement, SubQ, ea addt'l 20sq cm or part thereof Pain Scale: 0-10 Numeric Is Patient Pain Free? Yes Yes 11/15/20 14:00 Wound Center Nurse 2 #16 right medial cluster -Time 14:12 -Correct Patient Yes -Correct Side, Site, Position Yes -Correct Procedure Yes -Procedure Performed Yes -Type of Procedure Debridement -Clinical Debridement Subcutaneous -Tissue Removed Subcutaneous -Post Debridement (cm) - Length 3 -Post Debridement (cm) - Width 2 -Post Debridement (cm) - Depth 0.2 -Total Square (Post) (cm) 6 -Area of Debridement (cm) - Length 3 -Area of Debridement (cm) - Width 2 -Total Square (Area) (cm) 6 -Tunneling No -Undermining/Tunneling No -Circular Undermining No -Wound/Ulcer Outcome Not Healed -Ulcer Cleansing Rinsed/ Irrigated with Saline -Foul Odor after Cleansing No -Bioengineered Tissue No -Bleeding Controlled with Pressure -Offloading No -Treatment Response Procedure Tolerated Well -Debridement - Subq, 1st 20sq cm No -Debridement, SubQ, ea addt'l 20sq cm or part thereof #14 Left Ant Mccloud -Time 14:12 -Correct Patient Yes -Correct Side, Site, Position Yes -Correct Procedure Yes -Procedure Performed Yes -Type of Procedure Debridement -Clinical Debridement Subcutaneous -Tissue Removed Subcutaneous -Post Debridement (cm) - Length 0.2 -Post Debridement (cm) - Width 0.2 -Post Debridement (cm) - Depth 0.1 -Total Square (Post) (cm) 0.04 -Area of Debridement (cm) - Length 0.2 -Area of Debridement (cm) - Width 0.2 -Total Square (Area) (cm) 0.04 -Tunneling No -Undermining/Tunneling No -Circular Undermining No -Wound/Ulcer Outcome Not Healed -Ulcer Cleansing Rinsed/ Irrigated with Saline -Foul Odor after Cleansing No -Bioengineered Tissue No -Bleeding Controlled with Pressure -Offloading No -Type of Offloading -Treatment Response Procedure Tolerated Well -Debridement - Subq, 1st 20sq cm No #11 R. Grt Toe -Time -Correct Patient -Correct Side, Site, Position -Correct Procedure -Procedure Performed -Post Debridement (cm) - Length -Post Debridement (cm) - Width -Post Debridement (cm) - Depth -Total Square (Post) (cm) -Area of Debridement (cm) - Length -Area of Debridement (cm) - Width -Total Square (Area) (cm) -Tunneling -Undermining/Tunneling -Circular Undermining -Wound/Ulcer Outcome -Ulcer Cleansing -Foul Odor after Cleansing -Bioengineered Tissue -Bleeding Controlled with -Offloading -Type of Offloading -Treatment Response -Debridement - Subq, 1st 20sq cm #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 -Time 14:13 -Correct Patient Yes -Correct Side, Site, Position Yes -Correct Procedure Yes -Procedure Performed Yes -Type of Procedure Debridement -Clinical Debridement Subcutaneous -Tissue Removed Subcutaneous -Post Debridement (cm) - Length 10 -Post Debridement (cm) - Width 2 -Post Debridement (cm) - Depth 0.1 -Total Square (Post) (cm) 20 -Area of Debridement (cm) - Length 10 -Area of Debridement (cm) - Width 2 -Total Square (Area) (cm) 20 -Tunneling No -Undermining/Tunneling No -Circular Undermining No -Wound/Ulcer Outcome Not Healed -Ulcer Cleansing Rinsed/ Irrigated with Saline -Foul Odor after Cleansing No -Bioengineered Tissue No -Bleeding Controlled with Pressure -Other -Offloading No -Type of Offloading -Treatment Response Procedure Tolerated Well -Debridement - Subq, 1st 20sq cm No #15 right lateral plantar -Time 14:04 -Correct Patient Yes -Correct Side, Site, Position Yes -Correct Procedure Yes -Procedure Performed Yes -Type of Procedure Debridement -Clinical Debridement Subcutaneous -Tissue Removed Subcutaneous -Post Debridement (cm) - Length 1.3 -Post Debridement (cm) - Width 0.4 -Post Debridement (cm) - Depth 0.3 -Total Square (Post) (cm) 0.52 -Area of Debridement (cm) - Length 1.3 -Area of Debridement (cm) - Width 0.4 -Total Square (Area) (cm) 0.52 -Tunneling No -Undermining/Tunneling No -Circular Undermining No -Wound/Ulcer Outcome Not Healed -Ulcer Cleansing Rinsed/ Irrigated with Saline -Foul Odor after Cleansing No -Bioengineered Tissue Yes -Type of Bioengineered Tissue Epifix -Expiration Date 05/23/25 -Product Lot Number [id number] -Percent Used 100 -Lot number of Saline Used [id number] -Bleeding Controlled with Pressure -Offloading No -Type of Offloading Surgical Shoe -Treatment Response Procedure Tolerated Well -Debridement - Subq, 1st 20sq cm No -Apply Skin Sub - 1st 25 sq cm - Feet 1 -Epifix (per sq cm) 4 #13 LEFT MEDIAL PLANTAR -Time 14:11 -Correct Patient Yes -Correct Side, Site, Position Yes -Correct Procedure Yes -Procedure Performed Yes -Type of Procedure Debridement -Clinical Debridement Subcutaneous -Tissue Removed Subcutaneous -Post Debridement (cm) - Length 3.9 -Post Debridement (cm) - Width 2.9 -Post Debridement (cm) - Depth 0.3 -Total Square (Post) (cm) 11.31 -Area of Debridement (cm) - Length 3.9 -Area of Debridement (cm) - Width 2.9 -Total Square (Area) (cm) 11.31 -Tunneling No -Undermining/Tunneling No -Circular Undermining No -Wound/Ulcer Outcome Not Healed -Ulcer Cleansing Rinsed/ Irrigated with Saline -Foul Odor after Cleansing No -Bioengineered Tissue No -Bleeding Controlled with Pressure -Offloading No -Type of Offloading -Treatment Response Procedure Tolerated Well -Debridement - Subq, 1st 20sq cm Yes -Debridement, SubQ, ea addt'l 20sq cm 1 or part thereof Pain Scale: 0-10 Numeric Is Patient Pain Free? Yes WC - Nurse 3 - General Ulcer D/C NN Start: 10/25/20 10:38 Freq: Status: Active Protocol: Activity Type Activity Date Activity User E-Sign Co-Sign Detail Recorded Client Recorded Date Recorded By Document 10/25/20 11:42 DL [id number] 10/25/20 11:46 DL Document 11/01/20 12:41 JF [id number] 11/01/20 12:42 JF Document 11/07/20 12:56 JF [id number] 11/07/20 12:58 JF Document 11/15/20 14:[address] [facility] [id number] 11/15/20 14:[address] [facility] 10/25/20 11/01/20 11/07/20 11:42 12:41 12:56 Wound Care Nurse 3 #16 right medial cluster -Ulcer Cleansing Rinsed/ Irrigated with Saline -Foul Odor after Cleansing No -Primary Dressing Applied C Hydrogel ($), NonAdherent Contact Layer -Other Dressing -Primary Dressing Covered/Secured with Dry Gauze & Roll Gauze, Secured with Tape #14 Left Ant Mccloud -Ulcer Cleansing Rinsed/ Irrigated with Saline -Foul Odor after Cleansing No -Primary Dressing Applied C Hydrogel ($), NonAdherent Contact Layer -Primary Dressing Covered/Secured with Dry Gauze & Roll Gauze, Secured with Tape #11 R. Grt Toe -Ulcer Cleansing Rinsed/ Irrigated with Saline -Foul Odor after Cleansing No -Primary Dressing Applied Aquacel AG 4x4 -Primary Dressing Covered/Secured with Dry Gauze & Roll Gauze, Secured with Tape -Aquacel AG 4x4 1 #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 -Ulcer Cleansing Wound Cleanser Rinsed/ Rinsed/ Irrigated with Irrigated with Saline Saline -Foul Odor after Cleansing No No No -Primary Dressing Applied C Hydrogel ($), C Hydrogel ($), NonAdherent NonAdherent Contact Layer Contact Layer -Other Dressing Hydrogel/ adaptic -Primary Dressing Covered/Secured with Dry Gauze & Dry Gauze & Dry Gauze & Roll Gauze, Roll Gauze, Roll Gauze, Secured with Secured with Secured with Tape Tape Tape #15 right lateral plantar -Ulcer Cleansing Rinsed/ Rinsed/ Rinsed/ Irrigated with Irrigated with Irrigated with Saline Saline Saline -Foul Odor after Cleansing No No No -Primary Dressing Applied -Other Dressing aquacel ag -Primary Dressing Covered/Secured with Dry Gauze & Dry Gauze & Dry Gauze & Roll Gauze, Roll Gauze, Roll Gauze, Secured with Secured with Secured with Tape Tape Tape #13 LEFT MEDIAL PLANTAR -Ulcer Cleansing Rinsed/ Rinsed/ Rinsed/ Irrigated with Irrigated with Irrigated with Saline Saline Saline -Foul Odor after Cleansing No No No -Primary Dressing Applied Aquacel AG 4x4 Aquacel AG 2x2 -Other Dressing aqaucel ag -Primary Dressing Covered/Secured with Dry Gauze & Dry Gauze & Dry Gauze & Roll Gauze, Roll Gauze, Roll Gauze, Secured with Secured with Secured with Tape Tape Tape -Aquacel AG 4x4 1 -Aquacel AG 2x2 1 -Silvercel Left -Tubular Bandage -Size of Tubigrip Used -Size F ($) Right -Tubular Bandage Single Layer -Size of Tubigrip Used Size E Size D -Size D ($) 1 -Size E ($) 1 -Size F ($) Treatment Response Procedure Tolerated Well Pain Scale: 0-10 Numeric Is Patient Pain Free? Yes Yes Yes WC - Visit Discharge Discharge Condition Stable Stable Stable Ambulatory Status Ambulatory Ambulatory Ambulatory Transportation Private Auto Ambulance Private Auto Medication Reconcilliation completed & Yes Yes provided to patient/care provider Clinical Summary of Care Provided Yes Yes Facility Type 11/15/20 14:31 Wound Care Nurse 3 #16 right medial cluster -Ulcer Cleansing -Foul Odor after Cleansing -Primary Dressing Applied Other -Other Dressing epifix -Primary Dressing Covered/Secured with Dry Gauze & Roll Gauze, Secured with Tape #14 Left Ant Mccloud -Ulcer Cleansing Rinsed/ Irrigated with Saline -Foul Odor after Cleansing No -Primary Dressing Applied C Hydrogel ($) -Primary Dressing Covered/Secured with Dry Gauze & Roll Gauze, Secured with Tape #11 R. Grt Toe -Ulcer Cleansing -Foul Odor after Cleansing -Primary Dressing Applied -Primary Dressing Covered/Secured with -Aquacel AG 4x4 #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 -Ulcer Cleansing Rinsed/ Irrigated with Saline -Foul Odor after Cleansing No -Primary Dressing Applied C Hydrogel ($) -Other Dressing -Primary Dressing Covered/Secured with Dry Gauze & Roll Gauze, Secured with Tape #15 right lateral plantar -Ulcer Cleansing -Foul Odor after Cleansing -Primary Dressing Applied Other -Other Dressing epifix -Primary Dressing Covered/Secured with Dry Gauze & Roll Gauze, Secured with Tape #13 LEFT MEDIAL PLANTAR -Ulcer Cleansing Rinsed/ Irrigated with Saline -Foul Odor after Cleansing No -Primary Dressing Applied Silvercel -Other Dressing -Primary Dressing Covered/Secured with Dry Gauze & Roll Gauze, Secured with Tape -Aquacel AG 4x4 -Aquacel AG 2x2 -Silvercel 1 Left -Tubular Bandage Single Layer -Size of Tubigrip Used Size F -Size F ($) 1 Right -Tubular Bandage Single Layer -Size of Tubigrip Used Size F -Size D ($) -Size E ($) -Size F ($) 1 Treatment Response Procedure Tolerated Well Pain Scale: 0-10 Numeric Is Patient Pain Free? WC - Visit Discharge Discharge Condition Stable Ambulatory Status Ambulatory,Cane Transportation Private Auto Medication Reconcilliation completed & provided to patient/care provider Clinical Summary of Care Provided Facility Type Home Health Wound debrided: plantar foot Laterality: Left Wound Grade/Stage: grade 3 Type of Debridement: Excisional debridement Anesthesia Used: 5% Lidocaine Gel Depth: in the subcutaneous layer Percentage of wound debrided: 100 Instrument Used: #15 blade Tissue Removed: fibrous, devitalized subcutaneous, biofilm, slough Severity: Fat Layer Exposed Amount of bleeding with debridement: Mild Bleeding Controlled with: Pressure Patient tolerated procedure well - Additional Wound Wound debrided: leg clusters Laterality: Left Wound Grade/Stage: grade 1 Type of Debridement: Excisional debridement Anesthesia Used: 5% Lidocaine Gel Depth: in the subcutaneous layer Percentage of wound debrided: - - 5 Instrument Used: #15 blade Tissue Removed: fibrous, devitalized subcutaneous, biofilm, slough Severity: Fat Layer Exposed Amount of bleeding with debridement: Mild Bleeding Controlled with: Pressure Patient tolerated procedure: Patient tolerated procedure well - Additional Wound Wound debrided: leg cluster Laterality: Right Wound Grade/Stage: 1 Type of Debridement: Excisional debridement Anesthesia Used: 5% Lidocaine Gel Depth: in the subcutaneous layer Percentage of wound debrided: - - 2 Instrument Used: #15 blade Tissue Removed: fibrous, devitalized subcutaneous, biofilm, slough Severity: Fat Layer Exposed Amount of bleeding with debridement: Mild Bleeding Controlled with: Pressure Patient tolerated procedure: Patient tolerated procedure well - Additional Wound Wound debrided: lateral forefoot Laterality: Right Wound Grade/Stage: grade 1 (prior surgical site also) Type of Debridement: Excisional debridement Anesthesia Used: 5% Lidocaine Gel Depth: in the subcutaneous layer Percentage of wound debrided: 100 Instrument Used: #15 blade Tissue Removed: fibrous, devitalized subcutaneous, biofilm, slough Severity: Fat Layer Exposed Amount of bleeding with debridement: Mild Bleeding Controlled with: Pressure Patient tolerated procedure: Patient tolerated procedure well Assessment/Plan Active Problems (Last Reviewed 10/31/20 @ 16:[address] 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) Tinea unguium (Chronic) Other hereditary and idiopathic neuropathies (Chronic) Ulcer of right foot with fat layer exposed (Chronic) Tobacco dependence due to cigarettes (Chronic) Obesity (Chronic) Chronic ulcer of left foot with fat layer exposed (Chronic) Diabetic ulcer of left foot (Chronic) Delayed wound healing (Chronic) Difficulty in walking, not elsewhere classified (Chronic) History of transmetatarsal amputation of left foot (Chronic) Ulcer of right foot with fat layer exposed (Chronic) 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 Right foot ulcer w/ fat layer exposed at s/p fifth ray resection site (grade 1). Right leg ulcer cluster, grade 1. Right medial ankle cluster, grade 1. left leg ulcer, grade 1. Morbid obesity. Diabetes type 2 with complications. Walking difficulty and impairment. Delayed healing Plan: I reviewed and discussed his case. Subcutaneous excisional debridement was performed as noted in the clinical panel to the left foot, right foot, right leg and left leg. His leg edema is slightly more compared to when he was in the transitional care unit. To elevate and reduce salt intake. To continue with Tubigrip compression garments. He is recently not been using these and he will resume use today. I recommend application of advanced wound healing product to the right foot. Prior authorization was confirmed. The indications, benefits, anticipated application and healing time management were reviewed in detail. Verbal consent was obtained in the procedure for today. Epigraft was applied according to standard protocol and was further secured with a wound veil and Steri-Strips. It is noted that this is the same application site that was previously improved last year however there was time gap did not allow subsequent applications during his initial delineated approval time. The reason there was a gap included hospitalization and further rehabilitation in our transitional care unit. Therefore it was reapplied today. He was advised to keep this dressing of the right foot clean, dry, and intact until follow-up next week. Right and left leg clusters had hydrogel applied and were dressed with gauze. Aquacel Ag was applied to the left foot and he will take a break from the total contact cast due to peripheral ulcer site moisture. To change daily. Compliance was discussed. This is imperative to proceed in a positive direction in regards to his wound healing. I discussed the need for serious offloading for limb salvage purposes. He has tried various shoes and walking boots. He presents with full weightbearing and diabetic shoes again today which is not recommended. He has struggled with the use of such as a walker of a knee roller. An electric wheelchair (extra width) is also an option and at this time I recommend this. This is in process and he is been referred to a facility in [place]. The application process is still pending. An updated prescription was provided today. His noninvasive vascular studies were reviewed from which were normal and intervention was previously not recommended. I advised him to follow-up with all of Dr. Bonilla's recommendations to optimize his healing process. He has for help scheduling this because he has not been able to do this. He has recently been seen and intervention is planned for arterial optimization. An updated bilateral duplex was also recommended to help with planning. To continue to work on decreasing glucose levels. He has a history of hyperglycemia. To continue follow-up with primary care physician. To continue to follow-up with nutritional services. To continue to follow-up as advised. He is currently making adjustments with his eating habits. He also follows up with bundle packer, Dr. Arteaga who is working with him to reduce his hemoglobin A1c with medication and behavioral changes. Smoking cessation was discussed in detail and he was advised on the healing impairment associated with this. To continue with his smoking cessation program. I also recommend discontinuation of nicotine products for this also contributes to small vessel contraction. I answered all of his questions today. . To return to clinic in 1 week or call sooner if questions, concerns, or progressive worsening. I answered all his questions. Note: [employer] speech recognition warehouse checker software was used to create portions of this document. Sound-alike and misspelled words, as well as other warehouse checker errors may be contained in the documentation.
== END 2020-11-19 23:59 ==
LOC: WC 13:45
PROVIDERS: PCP Family Medicine Geriatric Medicine; Referring Provider Podiatrist; Visit Provider Podiatrist
DX: E11.621 Type 2 diabetes mellitus with foot ulcer (principal); L97.522 Non-pressure chronic ulcer of other part of left foot with fat layer exposed; E11.622 Type 2 diabetes mellitus with other skin ulcer; L97.812 Non-pressure chronic ulcer of other part of right lower leg with fat layer exposed; L97.512 Non-pressure chronic ulcer of other part of right foot with fat layer exposed; E11.42 Type 2 diabetes mellitus with diabetic polyneuropathy; F17.210 Nicotine dependence, cigarettes, uncomplicated; R60.0 Localized edema; E66.01 Morbid (severe) obesity due to excess calories; Z68.41 Body mass index [BMI] 40.0-44.9, adult; S90.821A Blister (nonthermal), right foot, initial encounter; W22.03XA Walked into furniture, initial encounter; Y93.9 Activity, unspecified; Y92.89 Other specified places as the place of occurrence of the external cause; R26.2 Difficulty in walking, not elsewhere classified; Z89.432 Acquired absence of left foot; B35.1 Tinea unguium
CPT/HCPCS: 11042; 11045; 15275; 29445; Q4186

== ENCOUNTER 2020-12-19 10:30 | Outpatient (RCR) | payer MEDICARE, MEDICAID, SELFPAY ==
[2020-11-20 00:19] VITALS: BP 155/76; PULSE 95; RESP 18; TEMP 36.3; BMI 48.5
[2020-11-22 13:00] VITALS: BP 160/55; PULSE 93; RESP 18; TEMP 36.7; BMI 48.5
--- NOTE | 2020-11-22 16:18 | PN.PCM_ITS ---
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 Code(s): L97.912 - Non-pressure chronic ulcer of unspecified part of right lower leg with fat layer exposed (4) Ulcer of right foot with fat layer exposed Status: Chronic Code(s): L97.512 - Non-pressure chronic ulcer of other part of right foot with fat layer exposed (5) Ulcer of left lower extremity with fat layer exposed Status: Chronic Code(s): L97.922 - Non-pressure chronic ulcer of unspecified part of left lower leg with fat layer exposed (6) Type 2 diabetes mellitus with diabetic polyneuropathy Status: Chronic Qualifiers: Code(s): E11.42 - Type 2 diabetes mellitus with diabetic polyneuropathy (7) Chronic ulcer of left foot with fat layer exposed Status: Chronic Code(s): L97.522 - Non-pressure chronic ulcer of other part of left foot with fat layer exposed (8) Localized edema Status: Chronic Code(s): R60.0 - Localized edema Type of Wound Date of Service: 11/22/20 Chief Complaint: Diabetic left foot ulceration, Mancilla Grade 3. right and left leg ulcers. Right foot ulcer (prior surgery). left foot ulcer History of Wound: This 65-year-old male with multiple comorbidities was seen today for bilateral foot ulcer. His left foot ulcer onset was 12-07-2019. He is previously known to me and had a left transmetatarsal amputation performed previously. He also had a 5th ray resection performed on his right foot and he has residual ulcer at that site. He also has ulcers in a clustered manner to his right and left legs. He denies diarrhea, rash, fever, chill, nausea, vomiting. He completed hyperbaric oxygen therapy sessions. He denies redness or odor. He denies calf pain. He continues to struggle with edema manageme nt, smoking cessation, nutrition, and maintaining reduced weightbearing activity. He is ready to proceed with application of left total contact cast again today. He has still not gained approval for electronic wheelchair at this time. Progress of Wound: stable, all - Physical Exam Vital Signs Temp Pulse Resp BP 98.1 F 93 18 160/55 H 11/22/20 13:00 11/22/20 13:00 11/22/20 13:00 11/22/20 13:00 General: Alert, Oriented x3, Cooperative, No apparent distress HEENT: Atraumatic Extremities: No cyanosis, Capillary Refill Less than 3 Seconds, No Calf Tenderness, Diminished Peripheral Pulses, Edema Skin: Ulcer/ Wound - no purulence, erythema, streaking, odor or infection bilateral. skin is hairless and atrophic Wound Measurements and Assessment WC - Nurse 1 - General Ulcer Measurement Start: 11/22/20 13:00 Freq: Status: Active Protocol: Activity Type Activity Date Activity User E-Sign Co-Sign Detail Recorded Client Recorded Date Recorded By Document 11/22/20 13:00 [facility] [id number] 11/22/20 13:13 [facility] 11/22/20 13:00 Wound Center Nurse 1 [Ulcer Assessment] #16 right medial cluster -Combined with other wound No -Current Size (cm) - Length 0.8 -Current Size (cm) - Width 0.9 -Current Size (cm) - Depth 0.1 -Total Square Cm 0.72 -Photo Taken No -Epithelialization Small 1-33% -Tunneling No -Undermining/Tunneling No -Circular Undermining No -Exudate Amt Small -Exudate Type Serosanguineous -Wound Margin Distinct, Outline Attached -Granulation Amt Large (67-100%) -Granulation Quality [place] -Slough/Fibrin No -Necrosis Amt None Present (0 %) -Texture (Maria M-wound Skin Appearance) Assessed, Scarring -Moisture (Maria M-wound Skin Appearance Assessed,Dry/ ) Scaly -Color (Maria M-wound Skin Appearance) Assessed -Temperature (Maria M-wound Skin No Abnormality Appearance) (Pt Warm) -Tenderness on Palpation (Maria M-wound No Skin Appearance) -Ulcer Cleansing soapy water -Foul Odor after Cleansing No -Anesthetic Used 4% Lidocaine Solution #14 Left Ant Mccloud -Combined with other wound No -Current Size (cm) - Length 0.1 -Current Size (cm) - Width 0.1 -Current Size (cm) - Depth 0.1 -Total Square Cm 0.01 -Epithelialization Large 67-100% -Tunneling No -Undermining/Tunneling No -Circular Undermining No -Texture (Maria M-wound Skin Appearance) Assessed -Moisture (Maria M-wound Skin Appearance Assessed,Dry/ ) Scaly -Color (Maria M-wound Skin Appearance) Assessed -Ulcer Cleansing soapy water #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 -Combined with other wound No -Current Size (cm) - Length 18.5 -Current Size (cm) - Width 13 -Current Size (cm) - Depth 0.1 -Total Square Cm 240.5 -Photo Taken No -Epithelialization None Present -Tunneling No -Undermining/Tunneling No -Circular Undermining No -Exudate Amt Small -Exudate Type Serosanguineous -Wound Margin Distinct, Outline Attached -Granulation Amt Small (1-33%) -Granulation Quality Red -Slough/Fibrin Yes -Necrosis Amt Large (67-100%) -Necrotic Tissue Type Eschar -Texture (Maria M-wound Skin Appearance) Assessed, Scarring -Moisture (Maria M-wound Skin Appearance Assessed,Dry/ ) Scaly -Color (Maria M-wound Skin Appearance) Assessed -Temperature (Maria M-wound Skin No Abnormality Appearance) (Pt Warm) -Tenderness on Palpation (Maria M-wound No Skin Appearance) -Ulcer Cleansing soapy water -Foul Odor after Cleansing No -Anesthetic Used 4% Lidocaine Solution #15 right lateral plantar -Combined with other wound No -Current Size (cm) - Length 1.8 -Current Size (cm) - Width 0.5 -Current Size (cm) - Depth 0.3 -Total Square Cm 0.90 -Photo Taken No -Epithelialization None Present -Tunneling No -Undermining/Tunneling No -Circular Undermining No -Exudate Amt Medium -Exudate Type Serosanguineous -Wound Margin Distinct, Outline Attached -Granulation Amt Medium (34-66%) -Granulation Quality Red -Slough/Fibrin Yes -Necrosis Amt Medium (34-66%) -Necrotic Tissue Type Adherent Slough -Texture (Maria M-wound Skin Appearance) Assessed,Callus ,Scarring -Moisture (Maria M-wound Skin Appearance Assessed,Dry/ ) Scaly -Color (Maria M-wound Skin Appearance) Assessed -Temperature (Maria M-wound Skin No Abnormality Appearance) (Pt Warm) -Tenderness on Palpation (Maria M-wound No Skin Appearance) -Ulcer Cleansing soapy water -Foul Odor after Cleansing No -Anesthetic Used 4% Lidocaine Solution #13 LEFT MEDIAL PLANTAR -Combined with other wound No -Current Size (cm) - Length 2.5 -Current Size (cm) - Width 3 -Current Size (cm) - Depth 0.4 -Total Square Cm 7.5 -Photo Taken No -Epithelialization Small 1-33% -Tunneling No -Undermining/Tunneling No -Circular Undermining No -Exudate Amt Medium -Exudate Type Serosanguineous -Wound Margin Thickened -Granulation Amt Large (67-100%) -Granulation Quality Pale,Red -Slough/Fibrin Yes -Necrosis Amt Small (1-33%) -Necrotic Tissue Type Adherent Slough -Texture (Maria M-wound Skin Appearance) Assessed,Callus ,Scarring -Moisture (Maria M-wound Skin Appearance Assessed,Dry/ ) Scaly -Color (Maria M-wound Skin Appearance) Assessed -Temperature (Maria M-wound Skin No Abnormality Appearance) (Pt Warm) -Tenderness on Palpation (Maria M-wound No Skin Appearance) -Ulcer Cleansing soapy water -Foul Odor after Cleansing No -Anesthetic Used 4% Lidocaine Solution [Edema Assessment] -Lower Limb Edema Present Yes -Right Calf (cm) 44 -Right Ankle (cm) 25.7 -Left Calf (cm) 47.5 -Left Ankle (cm) 27 WC - Nurse 2 - General Ulcer CM Notes Start: 11/22/20 13:00 Freq: Status: Active Protocol: Activity Type Activity Date Activity User E-Sign Co-Sign Detail Recorded Client Recorded Date Recorded By Document 11/22/20 13:21 [facility] [id number] 11/22/20 13:39 C[facility] 11/22/20 13:21 Wound Center Nurse 2 [Procedure/Treatment] 17-Left upper leg -Time 13:41 -Correct Patient Yes -Correct Side, Site, Position Yes -Correct Procedure Yes -Procedure Performed Yes -Type of Procedure Debridement -Clinical Debridement Subcutaneous -Tissue Removed Subcutaneous -Post Debridement (cm) - Length 3.8 -Post Debridement (cm) - Width 5.7 -Post Debridement (cm) - Depth 0.2 -Total Square (Post) (cm) 21.66 -Area of Debridement (cm) - Length 3.8 -Area of Debridement (cm) - Width 5.7 -Total Square (Area) (cm) 21.66 -Tunneling No -Undermining/Tunneling No -Circular Undermining No -Wound/Ulcer Outcome Not Healed -Ulcer Cleansing Rinsed/ Irrigated with Saline -Foul Odor after Cleansing No -Bioengineered Tissue No -Bleeding Controlled with Pressure -Offloading No -Type of Offloading Total Contact Cast (TCC) - Left ($) -Treatment Response Procedure Tolerated Well -Debridement - Subq, 1st 20sq cm No -Debridement, SubQ, ea addt'l 20sq cm 1 or part thereof #16 right medial cluster -Time 13:21 -Correct Patient Yes -Correct Side, Site, Position Yes -Correct Procedure Yes -Procedure Performed Yes -Type of Procedure Debridement -Clinical Debridement Subcutaneous -Tissue Removed Subcutaneous -Post Debridement (cm) - Length 0.9 -Post Debridement (cm) - Width 1 -Post Debridement (cm) - Depth 0.1 -Total Square (Post) (cm) 0.9 -Area of Debridement (cm) - Length 0.9 -Area of Debridement (cm) - Width 1 -Total Square (Area) (cm) 0.9 -Tunneling No -Undermining/Tunneling No -Circular Undermining No -Wound/Ulcer Outcome Not Healed -Ulcer Cleansing Rinsed/ Irrigated with Saline -Foul Odor after Cleansing No -Bioengineered Tissue No -Bleeding Controlled with Pressure -Offloading No -Treatment Response Procedure Tolerated Well -Debridement - Subq, 1st 20sq cm Yes #14 Left Ant Mccloud -Time 13:24 -Correct Patient Yes -Correct Side, Site, Position Yes -Correct Procedure Yes -Procedure Performed Yes -Type of Procedure Debridement -Clinical Debridement Subcutaneous -Tissue Removed Subcutaneous -Post Debridement (cm) - Length 0.2 -Post Debridement (cm) - Width 0.2 -Post Debridement (cm) - Depth 0.2 -Total Square (Post) (cm) 0.04 -Area of Debridement (cm) - Length 0.2 -Area of Debridement (cm) - Width 0.2 -Total Square (Area) (cm) 0.04 -Tunneling No -Undermining/Tunneling No -Circular Undermining No -Wound/Ulcer Outcome Not Healed -Ulcer Cleansing Rinsed/ Irrigated with Saline -Foul Odor after Cleansing No -Bioengineered Tissue No -Bleeding Controlled with Pressure -Offloading No -Treatment Response Procedure Tolerated Well -Debridement - Subq, 1st 20sq cm No #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 -Time 13:24 -Correct Patient Yes -Correct Side, Site, Position Yes -Correct Procedure Yes -Procedure Performed Yes -Type of Procedure Debridement -Clinical Debridement Subcutaneous -Tissue Removed Subcutaneous -Post Debridement (cm) - Length 18.5 -Post Debridement (cm) - Width 13 -Post Debridement (cm) - Depth 0.1 -Total Square (Post) (cm) 240.5 -Area of Debridement (cm) - Length 18.5 -Area of Debridement (cm) - Width 13 -Total Square (Area) (cm) 240.5 -Tunneling No -Undermining/Tunneling No -Circular Undermining No -Wound/Ulcer Outcome Not Healed -Ulcer Cleansing Rinsed/ Irrigated with Saline -Foul Odor after Cleansing No -Bioengineered Tissue No -Bleeding Controlled with Pressure -Other 2% debrided. -Offloading Yes -Type of Offloading Surgical Shoe -Treatment Response Procedure Tolerated Well -Debridement - Subq, 1st 20sq cm No #15 right lateral plantar -Time 13:24 -Correct Patient Yes -Correct Side, Site, Position Yes -Correct Procedure Yes -Procedure Performed Yes -Type of Procedure Debridement -Clinical Debridement Subcutaneous -Tissue Removed Subcutaneous -Post Debridement (cm) - Length 1.8 -Post Debridement (cm) - Width 0.6 -Post Debridement (cm) - Depth 0.3 -Total Square (Post) (cm) 1.08 -Area of Debridement (cm) - Length 1.8 -Area of Debridement (cm) - Width 0.6 -Total Square (Area) (cm) 1.08 -Tunneling No -Undermining/Tunneling No -Circular Undermining No -Wound/Ulcer Outcome Not Healed -Ulcer Cleansing Rinsed/ Irrigated with Saline -Foul Odor after Cleansing No -Bioengineered Tissue Yes -Type of Bioengineered Tissue Epifix 18mm Disc -Expiration Date 07/23/25 -Product Lot Number [id number] -Percent Used 100 -Bleeding Controlled with Pressure -Offloading Yes -Type of Offloading Surgical Shoe -Treatment Response Procedure Tolerated Well -Debridement - Subq, 1st 20sq cm No -Apply Skin Sub - 1st 25 sq cm - Feet 1 -Epifix 18mm Disc 3 Query Text:18mm = 3 #13 LEFT MEDIAL PLANTAR -Time 13:25 -Correct Patient Yes -Correct Side, Site, Position Yes -Correct Procedure Yes -Procedure Performed Yes -Type of Procedure Debridement -Clinical Debridement Subcutaneous -Tissue Removed Subcutaneous -Post Debridement (cm) - Length 2.6 -Post Debridement (cm) - Width 3 -Post Debridement (cm) - Depth 0.3 -Total Square (Post) (cm) 7.8 -Area of Debridement (cm) - Length 2.6 -Area of Debridement (cm) - Width 3 -Total Square (Area) (cm) 7.8 -Tunneling No -Undermining/Tunneling No -Circular Undermining No -Wound/Ulcer Outcome Not Healed -Ulcer Cleansing Rinsed/ Irrigated with Saline -Foul Odor after Cleansing No -Bioengineered Tissue No -Bleeding Controlled with Pressure -Offloading Yes -Type of Offloading Surgical Shoe -Treatment Response Procedure Tolerated Well -Debridement - Subq, 1st 20sq cm No [See Physician Procedure note for Specifics] Pain Scale: 0-10 Numeric [Pain] -Is Patient Pain Free? Yes WC - Nurse 3 - General Ulcer D/C NN Start: 11/22/20 13:00 Freq: Status: Active Protocol: Activity Type Activity Date Activity User E-Sign Co-Sign Detail Recorded Client Recorded Date Recorded By Document 11/22/20 13:45 RB [id number] 11/22/20 13:48 RB 11/22/20 13:45 Wound Care Nurse 3 [Wound Dressing] 17-Left upper leg -Ulcer Cleansing Rinsed/ Irrigated with Saline -Other Dressing hydrogel -Primary Dressing Covered/Secured Dry Gauze,Dry with Gauze & Roll Gauze,Secured with Tape #16 right medial cluster -Ulcer Cleansing Rinsed/ Irrigated with Saline -Other Dressing hydrogel -Primary Dressing Covered/Secured Dry Gauze,Dry with Gauze & Roll Gauze,Secured with Tape #14 Left Ant Mccloud -Ulcer Cleansing Rinsed/ Irrigated with Saline -Primary Dressing Applied Aquacel AG 4x4 -Primary Dressing Covered/Secured Dry Gauze,Dry with Gauze & Roll Gauze,Secured with Tape -Aquacel AG 4x4 1 #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 -Primary Dressing Covered/Secured Dry Gauze,Dry with Gauze & Roll Gauze,Secured with Tape #15 right lateral plantar -Primary Dressing Covered/Secured Dry Gauze,Dry with Gauze & Roll Gauze,Secured with Tape #13 LEFT MEDIAL PLANTAR -Other Dressing silver -Primary Dressing Covered/Secured Dry Gauze with -Other Covering primary of TCC applied Musculoskeletal: Muscle Wasting, - - left transmetatarsal amputation Neurological: - - lack of normal epicritic sensation via light touch consistent with neuropathy Psych/Mental Status: Normal Affect, Appropriate Debridement Note Post-Debridement Measurements/Treatment WC - Nurse 2 - General Ulcer CM Notes Start: 11/22/20 13:00 Freq: Status: Active Protocol: Activity Type Activity Date Activity User E-Sign Co-Sign Detail Recorded Client Recorded Date Recorded By Document 11/22/20 13:21 C[facility] [id number] 11/22/20 13:39 CASSY 11/22/20 13:21 Wound Center Nurse 2 17-Left upper leg -Time 13:41 -Correct Patient Yes -Correct Side, Site, Position Yes -Correct Procedure Yes -Procedure Performed Yes -Type of Procedure Debridement -Clinical Debridement Subcutaneous -Tissue Removed Subcutaneous -Post Debridement (cm) - Length 3.8 -Post Debridement (cm) - Width 5.7 -Post Debridement (cm) - Depth 0.2 -Total Square (Post) (cm) 21.66 -Area of Debridement (cm) - Length 3.8 -Area of Debridement (cm) - Width 5.7 -Total Square (Area) (cm) 21.66 -Tunneling No -Undermining/Tunneling No -Circular Undermining No -Wound/Ulcer Outcome Not Healed -Ulcer Cleansing Rinsed/ Irrigated with Saline -Foul Odor after Cleansing No -Bioengineered Tissue No -Bleeding Controlled with Pressure -Offloading No -Type of Offloading Total Contact Cast (TCC) - Left ($) -Treatment Response Procedure Tolerated Well -Debridement - Subq, 1st 20sq cm No -Debridement, SubQ, ea addt'l 20sq cm 1 or part thereof #16 right medial cluster -Time 13:21 -Correct Patient Yes -Correct Side, Site, Position Yes -Correct Procedure Yes -Procedure Performed Yes -Type of Procedure Debridement -Clinical Debridement Subcutaneous -Tissue Removed Subcutaneous -Post Debridement (cm) - Length 0.9 -Post Debridement (cm) - Width 1 -Post Debridement (cm) - Depth 0.1 -Total Square (Post) (cm) 0.9 -Area of Debridement (cm) - Length 0.9 -Area of Debridement (cm) - Width 1 -Total Square (Area) (cm) 0.9 -Tunneling No -Undermining/Tunneling No -Circular Undermining No -Wound/Ulcer Outcome Not Healed -Ulcer Cleansing Rinsed/ Irrigated with Saline -Foul Odor after Cleansing No -Bioengineered Tissue No -Bleeding Controlled with Pressure -Offloading No -Treatment Response Procedure Tolerated Well -Debridement - Subq, 1st 20sq cm Yes #14 Left Ant Mccloud -Time 13:24 -Correct Patient Yes -Correct Side, Site, Position Yes -Correct Procedure Yes -Procedure Performed Yes -Type of Procedure Debridement -Clinical Debridement Subcutaneous -Tissue Removed Subcutaneous -Post Debridement (cm) - Length 0.2 -Post Debridement (cm) - Width 0.2 -Post Debridement (cm) - Depth 0.2 -Total Square (Post) (cm) 0.04 -Area of Debridement (cm) - Length 0.2 -Area of Debridement (cm) - Width 0.2 -Total Square (Area) (cm) 0.04 -Tunneling No -Undermining/Tunneling No -Circular Undermining No -Wound/Ulcer Outcome Not Healed -Ulcer Cleansing Rinsed/ Irrigated with Saline -Foul Odor after Cleansing No -Bioengineered Tissue No -Bleeding Controlled with Pressure -Offloading No -Treatment Response Procedure Tolerated Well -Debridement - Subq, 1st 20sq cm No #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 -Time 13:24 -Correct Patient Yes -Correct Side, Site, Position Yes -Correct Procedure Yes -Procedure Performed Yes -Type of Procedure Debridement -Clinical Debridement Subcutaneous -Tissue Removed Subcutaneous -Post Debridement (cm) - Length 18.5 -Post Debridement (cm) - Width 13 -Post Debridement (cm) - Depth 0.1 -Total Square (Post) (cm) 240.5 -Area of Debridement (cm) - Length 18.5 -Area of Debridement (cm) - Width 13 -Total Square (Area) (cm) 240.5 -Tunneling No -Undermining/Tunneling No -Circular Undermining No -Wound/Ulcer Outcome Not Healed -Ulcer Cleansing Rinsed/ Irrigated with Saline -Foul Odor after Cleansing No -Bioengineered Tissue No -Bleeding Controlled with Pressure -Other 2% debrided. -Offloading Yes -Type of Offloading Surgical Shoe -Treatment Response Procedure Tolerated Well -Debridement - Subq, 1st 20sq cm No #15 right lateral plantar -Time 13:24 -Correct Patient Yes -Correct Side, Site, Position Yes -Correct Procedure Yes -Procedure Performed Yes -Type of Procedure Debridement -Clinical Debridement Subcutaneous -Tissue Removed Subcutaneous -Post Debridement (cm) - Length 1.8 -Post Debridement (cm) - Width 0.6 -Post Debridement (cm) - Depth 0.3 -Total Square (Post) (cm) 1.08 -Area of Debridement (cm) - Length 1.8 -Area of Debridement (cm) - Width 0.6 -Total Square (Area) (cm) 1.08 -Tunneling No -Undermining/Tunneling No -Circular Undermining No -Wound/Ulcer Outcome Not Healed -Ulcer Cleansing Rinsed/ Irrigated with Saline -Foul Odor after Cleansing No -Bioengineered Tissue Yes -Type of Bioengineered Tissue Epifix 18mm Disc -Expiration Date 07/23/25 -Product Lot Number [id number] -Percent Used 100 -Bleeding Controlled with Pressure -Offloading Yes -Type of Offloading Surgical Shoe -Treatment Response Procedure Tolerated Well -Debridement - Subq, 1st 20sq cm No -Apply Skin Sub - 1st 25 sq cm - Feet 1 -Epifix 18mm Disc 3 Query Text:18mm = 3 #13 LEFT MEDIAL PLANTAR -Time 13:25 -Correct Patient Yes -Correct Side, Site, Position Yes -Correct Procedure Yes -Procedure Performed Yes -Type of Procedure Debridement -Clinical Debridement Subcutaneous -Tissue Removed Subcutaneous -Post Debridement (cm) - Length 2.6 -Post Debridement (cm) - Width 3 -Post Debridement (cm) - Depth 0.3 -Total Square (Post) (cm) 7.8 -Area of Debridement (cm) - Length 2.6 -Area of Debridement (cm) - Width 3 -Total Square (Area) (cm) 7.8 -Tunneling No -Undermining/Tunneling No -Circular Undermining No -Wound/Ulcer Outcome Not Healed -Ulcer Cleansing Rinsed/ Irrigated with Saline -Foul Odor after Cleansing No -Bioengineered Tissue No -Bleeding Controlled with Pressure -Offloading Yes -Type of Offloading Surgical Shoe -Treatment Response Procedure Tolerated Well -Debridement - Subq, 1st 20sq cm No Pain Scale: 0-10 Numeric Is Patient Pain Free? Yes WC - Nurse 3 - General Ulcer D/C NN Start: 11/22/20 13:00 Freq: Status: Active Protocol: Activity Type Activity Date Activity User E-Sign Co-Sign Detail Recorded Client Recorded Date Recorded By Document 11/22/20 13:45 RB [id number] 11/22/20 13:48 RB 11/22/20 13:45 Wound Care Nurse 3 17-Left upper leg -Ulcer Cleansing Rinsed/ Irrigated with Saline -Other Dressing hydrogel -Primary Dressing Covered/Secured with Dry Gauze,Dry Gauze & Roll Gauze,Secured with Tape #16 right medial cluster -Ulcer Cleansing Rinsed/ Irrigated with Saline -Other Dressing hydrogel -Primary Dressing Covered/Secured with Dry Gauze,Dry Gauze & Roll Gauze,Secured with Tape #14 Left Ant Mccloud -Ulcer Cleansing Rinsed/ Irrigated with Saline -Primary Dressing Applied Aquacel AG 4x4 -Primary Dressing Covered/Secured with Dry Gauze,Dry Gauze & Roll Gauze,Secured with Tape -Aquacel AG 4x4 1 #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 -Primary Dressing Covered/Secured with Dry Gauze,Dry Gauze & Roll Gauze,Secured with Tape #15 right lateral plantar -Primary Dressing Covered/Secured with Dry Gauze,Dry Gauze & Roll Gauze,Secured with Tape #13 LEFT MEDIAL PLANTAR -Other Dressing silver -Primary Dressing Covered/Secured with Dry Gauze -Other Covering primary of TCC applied Wound debrided: leg Laterality: Right Wound Grade/Stage: grade 1 Type of Debridement: Excisional debridement Anesthesia Used: 5% Lidocaine Gel Depth: in the subcutaneous layer Percentage of wound debrided: - - 2% Instrument Used: #15 blade Tissue Removed: fibrous, devitalized subcutaneous, biofilm, slough Severity: Fat Layer Exposed Amount of bleeding with debridement: Mild Bleeding Controlled with: Pressure Patient tolerated procedure well - Additional Wound Wound debrided: leg cluster Laterality: Left Wound Grade/Stage: grade 1 Type of Debridement: Excisional debridement Anesthesia Used: 5% Lidocaine Gel Depth: in the subcutaneous layer Percentage of wound debrided: - - 5 Instrument Used: #15 blade Tissue Removed: fibrous, devitalized subcutaneous, biofilm, slough Severity: Fat Layer Exposed Amount of bleeding with debridement: Mild Bleeding Controlled with: Pressure Patient tolerated procedure: Patient tolerated procedure well - Additional Wound Wound debrided: distal lateral foot Laterality: Right Wound Grade/Stage: grade 1 Type of Debridement: Excisional debridement Anesthesia Used: 5% Lidocaine Gel Depth: in the subcutaneous layer Percentage of wound debrided: 100 Instrument Used: #15 blade Tissue Removed: fibrous, devitalized subcutaneous, biofilm, slough Severity: Fat Layer Exposed Amount of bleeding with debridement: Mild Bleeding Controlled with: Pressure Patient tolerated procedure: Patient tolerated procedure well - Additional Wound Wound debrided: plantar medial foot Laterality: Left Wound Grade/Stage: grade 3 Type of Debridement: Excisional debridement Anesthesia Used: 5% Lidocaine Gel Depth: in the subcutaneous layer Percentage of wound debrided: 100 Instrument Used: #15 blade Tissue Removed: fibrous, devitalized subcutaneous, biofilm, slough Severity: Fat Layer Exposed Amount of bleeding with debridement: Mild Bleeding Controlled with: Pressure Patient tolerated procedure: Patient tolerated procedure well Assessment/Plan Active Problems (Last Reviewed 10/31/20 @ 16:[address] 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 Right foot ulcer w/ fat layer exposed at s/p fifth ray resection site (grade 1). Right leg ulcer cluster, grade 1. Right medial ankle cluster, grade 1. left leg ulcer, grade 1. Morbid obesity. Diabetes type 2 with complications. Walking difficulty and impairment. Delayed healing Plan: I reviewed and discussed his case. Subcutaneous excisional debridement was performed as noted in the clinical panel to the left foot, right foot, right leg and left leg. To elevate and reduce salt intake. To continue with Tubigr ip compression garments. He is recently not been using these and he will resume use today. I recommend application of advanced wound healing product to the right foot. Prior authorization was confirmed. The indications, benefits, anticipated application and healing time management were reviewed in detail. Verbal consent was obtained in the procedure for today. Epi fix was applied according to standard protocol and was further secured with a wound veil and Steri-Strips. He tolerated this well. He was advised to keep this dressing of the right foot clean, dry, and intact until follow-up next week. Right and left leg clusters had hydrogel applied and were dressed with gauze. Verbal consent was applied for a total contact cast. This was applied according to standard protocol in a rectus well padded manner. He tolerated this well. He was advised to keep this clean, dry, intact until follow up next week. Aquacel Ag was applied to the left foot prior to cast application. I discussed the need for serious offloading for limb salvage purposes. He has tried various shoes and walking boots. He presents with full weightbearing and diabetic shoes again today which is not recommended. He has struggled with the use of such as a walker of a knee roller. An electric wheelchair (extra width) is also an option and at this time I recommend this. This was not approved and several hours have been spent on this attempt with nursing staff. I suggested he review this option with his commercial insurance underwriter to see if a different route of approval is more appropriate such as different codes or going through PCP / physical therapist. His noninvasive vascular studies were reviewed from which were normal and intervention was previously not recommended. I advised him to follow-up with all of Dr. Bonilla's recommendations to optimize his healing process. He has for help scheduling this because he has not been able to do this. He has recently been seen and intervention is planned for arterial optimization. An updated bilateral duplex was also recommended to help with planning. To continue to work on decreasing glucose levels. He has a history of hyperglycemia. To continue follow-up with primary care physician. To continue to follow-up with nutritional services. To continue to follow-up as advised. He is currently making adjustments with his eating habits. He also follows up with pickup driver, Dr. Arteaga who is working with him to reduce his hemoglobin A1c with medication and behavioral changes. Smoking cessation was discussed in detail and he was advised on the healing impairment associated with this. To continue with his smoking cessation program. I also recommend discontinuation of nicotine products for this also contributes to small vessel c ontraction. I answered all of his questions today. . To return to clinic in 1 week or call sooner if questions, concerns, or progressive worsening. I answered all his questions. Note: [facility] speech recognition transportation program director software was used to create portions of this document. Sound-alike and misspelled words, as well as other transportation program director errors may be contained in the documentation.
[2020-11-29 13:15] VITALS: BP 161/80; PULSE 99; TEMP 36.6; BMI 48.5
--- NOTE | 2020-11-29 14:09 | PN.PCM_ITS ---
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 Code(s): L97.912 - Non-pressure chronic ulcer of unspecified part of right lower leg with fat layer exposed (4) Ulcer of right foot with fat layer exposed Status: Chronic Code(s): L97.512 - Non-pressure chronic ulcer of other part of right foot with fat layer exposed (5) Type 2 diabetes mellitus with diabetic polyneuropathy Status: Chronic Qualifiers: Code(s): E11.42 - Type 2 diabetes mellitus with diabetic polyneuropathy (6) Chronic ulcer of left foot with fat layer exposed Status: Chronic Code(s): L97.522 - Non-pressure chronic ulcer of other part of left foot with fat layer exposed (7) Localized edema Status: Chronic Code(s): R60.0 - Localized edema Type of Wound Date of Service: 11/29/20 Chief Complaint: Diabetic left foot ulceration, [place] Grade 3. right and left leg ulcers. Right foot ulcer (prior surgery). left foot ulcer History of Wound: This 65-year-old male with multiple comorbidities was seen today for bilateral foot ulcer. His left foot ulcer onset was 12-07-2019. He is previously known to me and had a left transmetatarsal amputation performed previously. He also had a 5th ray resection performed on his right foot and he has residual ulcer at that site. He also has ulcers in a clustered manner to his right and left legs. He denies diarrhea, rash, fever, chill, nausea, vomiting. He completed hyperbaric oxygen therapy sessions. He denies redness or odor. He denies calf pain. He continues to struggle with edema management, smoking cessation, nutrition, and maintaining reduced weightbearing activity. He is ready to proceed with application of left total contact cast again today. He has still not gained approval for electronic wheelchair at this time and did talk to his patient case coordinator with his insurance in regards to other avenues to work towards and is approved. He does not have the details today to share with the medical team. Progress of Wound: Improving right. Stable left - Physical Exam Vital Signs Temp Pulse Resp BP 97.8 F 99 18 161/80 H 11/29/20 13:15 11/29/20 13:15 11/22/20 13:00 11/29/20 13:15 General: Alert, Oriented x3, Cooperative, No apparent distress HEENT: Atraumatic Extremities: No cyanosis, Capillary Refill Less than 3 Seconds, No Calf Tenderness, Diminished Peripheral Pulses, Edema Skin: Ulcer/ Wound - No purulence, erythema, string, odor, infection. Skin is hairless and atrophic., - - Ulcer sites noted to right lateral foot and plantar left foot. Wound Measurements and Assessment WC - Nurse 1 - General Ulcer Measurement Start: 11/22/20 13:00 Freq: Status: Active Protocol: Activity Type Activity Date Activity User E-Sign Co-Sign Detail Recorded Client Recorded Date Recorded By Document 11/29/20 13:15 DARRELL [id number] 11/29/20 13:28 DARRELL 11/29/20 13:15 Wound Center Nurse 1 [Ulcer Assessment] 17-Left upper leg -Current Size (cm) - Length 0.1 -Current Size (cm) - Width 0.1 -Current Size (cm) - Depth 0.1 -Total Square Cm 0.01 -Exudate Amt Small -Exudate Type Serosanguineous -Wound Margin Distinct, Outline Attached -Granulation Amt Medium (34-66%) -Granulation Quality Red -Necrosis Amt Medium (34-66%) -Necrotic Tissue Type Adherent Slough -Texture (Maria M-wound Skin Appearance) Assessed, Scarring -Moisture (Maria M-wound Skin Appearance Assessed,Dry/ ) Scaly -Color (Maria M-wound Skin Appearance) Assessed, Hemosiderin Staining -Temperature (Maria M-wound Skin No Abnormality Appearance) (Pt Warm) -Tenderness on Palpation (Maria M-wound No Skin Appearance) -Ulcer Cleansing soap and water -Foul Odor after Cleansing No -Anesthetic Used 4% Lidocaine Solution #16 right medial foot cluster -Current Size (cm) - Length 3.3 -Current Size (cm) - Width 1.5 -Current Size (cm) - Depth 0.2 -Total Square Cm 4.95 -Exudate Amt Medium -Exudate Type Serosanguineous -Wound Margin Distinct, Outline Attached -Granulation Amt Medium (34-66%) -Granulation Quality Red -Necrosis Amt Medium (34-66%) -Necrotic Tissue Type Adherent Slough -Texture (Maria M-wound Skin Appearance) Assessed, Scarring -Moisture (Maria M-wound Skin Appearance Assessed,Dry/ ) Scaly -Color (Maria M-wound Skin Appearance) Assessed, Hemosiderin Staining -Temperature (Maria M-wound Skin No Abnormality Appearance) (Pt Warm) -Tenderness on Palpation (Maria M-wound No Skin Appearance) -Ulcer Cleansing soap and water -Foul Odor after Cleansing No -Anesthetic Used 4% Lidocaine Solution #14 Left Ant Mccloud -Current Size (cm) - Length 0.1 -Current Size (cm) - Width 0.1 -Current Size (cm) - Depth 0.1 -Total Square Cm 0.01 -Exudate Amt Small -Exudate Type Serosanguineous -Wound Margin Distinct, Outline Attached -Granulation Amt Medium (34-66%) -Granulation Quality Red -Necrosis Amt Medium (34-66%) -Necrotic Tissue Type Adherent Slough -Texture (Maria M-wound Skin Appearance) Assessed, Scarring -Moisture (Maria M-wound Skin Appearance Assessed,Dry/ ) Scaly -Color (Maria M-wound Skin Appearance) Assessed -Temperature (Maria M-wound Skin No Abnormality Appearance) (Pt Warm) -Tenderness on Palpation (Maria M-wound No Skin Appearance) -Ulcer Cleansing soap and water -Foul Odor after Cleansing No -Anesthetic Used 4% Lidocaine 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 -Current Size (cm) - Length 13 -Current Size (cm) - Width 5 -Current Size (cm) - Depth 0.1 -Total Square Cm 65 -Exudate Amt Medium -Exudate Type Serosanguineous -Wound Margin Distinct, Outline Attached -Granulation Amt Medium (34-66%) -Granulation Quality Red -Necrosis Amt Medium (34-66%) -Necrotic Tissue Type Adherent Slough -Texture (Maria M-wound Skin Appearance) Assessed, Scarring -Moisture (Maria M-wound Skin Appearance Assessed,Dry/ ) Scaly -Color (Maria M-wound Skin Appearance) Assessed, Hemosiderin Staining -Temperature (Maria M-wound Skin No Abnormality Appearance) (Pt Warm) -Tenderness on Palpation (Maria M-wound No Skin Appearance) -Ulcer Cleansing soap and water -Foul Odor after Cleansing No -Anesthetic Used 4% Lidocaine Solution #15 right lateral plantar -Current Size (cm) - Length 0.5 -Current Size (cm) - Width 0.2 -Current Size (cm) - Depth 0.2 -Total Square Cm 0.10 -Exudate Amt Small -Exudate Type Serosanguineous -Wound Margin Distinct, Outline Attached -Granulation Amt Medium (34-66%) -Granulation Quality Red -Necrosis Amt Medium (34-66%) -Necrotic Tissue Type Adherent Slough -Texture (Maria M-wound Skin Appearance) Assessed, Scarring -Moisture (Maria M-wound Skin Appearance Assessed,Dry/ ) Scaly -Color (Maria M-wound Skin Appearance) Assessed, Hemosiderin Staining -Temperature (Maria M-wound Skin No Abnormality Appearance) (Pt Warm) -Tenderness on Palpation (Maria M-wound No Skin Appearance) -Ulcer Cleansing soapa and water -Foul Odor after Cleansing No -Anesthetic Used 4% Lidocaine Solution #13 LEFT MEDIAL PLANTAR -Current Size (cm) - Length 2.4 -Current Size (cm) - Width 2.9 -Current Size (cm) - Depth 0.4 -Total Square Cm 6.96 -Exudate Amt Small -Exudate Type Serosanguineous -Wound Margin Distinct, Outline Attached -Granulation Amt Medium (34-66%) -Granulation Quality Red -Necrosis Amt Small (1-33%) -Necrotic Tissue Type Adherent Slough -Texture (Maria M-wound Skin Appearance) Assessed, Scarring -Moisture (Maria M-wound Skin Appearance Assessed,Dry/ ) Scaly -Color (Maria M-wound Skin Appearance) Assessed, Hemosiderin Staining -Temperature (Maria M-wound Skin No Abnormality Appearance) (Pt Warm) -Tenderness on Palpation (Mariam -wound No Skin Appearance) -Ulcer Cleansing soap and water -Foul Odor after Cleansing No -Anesthetic Used 4% Lidocaine Solution WC - Nurse 2 - General Ulcer CM Notes Start: 11/22/20 13:00 Freq: Status: Active Protocol: Activity Type Activity Date Activity User E-Sign Co-Sign Detail Recorded Client Recorded Date Recorded By Document 11/29/20 13:38 CASSY [id number] 11/29/20 13:53 CASSY 11/29/20 13:38 Wound Center Nurse 2 [Procedure/Treatment] 17-Left upper leg -Time 13:39 -Correct Patient Yes -Correct Side, Site, Position Yes -Correct Procedure Yes -Procedure Performed Yes -Type of Procedure Debridement -Clinical Debridement Subcutaneous -Tissue Removed Subcutaneous -Post Debridement (cm) - Length 0.5 -Post Debridement (cm) - Width 0.4 -Post Debridement (cm) - Depth 0.1 -Total Square (Post) (cm) 0.20 -Area of Debridement (cm) - Length 0.5 -Area of Debridement (cm) - Width 0.4 -Total Square (Area) (cm) 0.20 -Tunneling No -Undermining/Tunneling No -Circular Undermining No -Wound/Ulcer Outcome Not Healed -Ulcer Cleansing Rinsed/ Irrigated with Saline -Foul Odor after Cleansing No -Bioengineered Tissue No -Bleeding Controlled with Pressure -Offloading No -Treatment Response Procedure Tolerated Well -Debridement - Subq, 1st 20sq cm Yes #16 right medial foot cluster -Time 13:38 -Correct Patient Yes -Correct Side, Site, Position Yes -Correct Procedure Yes -Procedure Performed Yes -Type of Procedure Debridement -Clinical Debridement Subcutaneous -Tissue Removed Subcutaneous -Post Debridement (cm) - Length 3.3 -Post Debridement (cm) - Width 1.6 -Post Debridement (cm) - Depth 0.2 -Total Square (Post) (cm) 5.28 -Area of Debridement (cm) - Length 3.3 -Area of Debridement (cm) - Width 1.6 -Total Square (Area) (cm) 5.28 -Tunneling No -Undermining/Tunneling No -Circular Undermining No -Wound/Ulcer Outcome Not Healed -Ulcer Cleansing Rinsed/ Irrigated with Saline -Foul Odor after Cleansing No -Bioengineered Tissue No -Bleeding Controlled with Pressure -Offloading Yes -Type of Offloading Surgical Shoe -Treatment Response Procedure Tolerated Well -Debridement - Subq, 1st 20sq cm No #14 Left Ant Mccloud -Time 13:41 -Correct Patient Yes -Correct Side, Site, Position Yes -Correct Procedure Yes -Procedure Performed Yes -Type of Procedure Debridement -Clinical Debridement Subcutaneous -Tissue Removed Subcutaneous -Post Debridement (cm) - Length 0.1 -Post Debridement (cm) - Width 0.1 -Post Debridement (cm) - Depth 0.1 -Total Square (Post) (cm) 0.01 -Area of Debridement (cm) - Length 0.1 -Area of Debridement (cm) - Width 0.1 -Total Square (Area) (cm) 0.01 -Tunneling No -Undermining/Tunneling No -Circular Undermining No -Wound/Ulcer Outcome Not Healed -Ulcer Cleansing Rinsed/ Irrigated with Saline -Foul Odor after Cleansing No -Bioengineered Tissue No -Bleeding Controlled with Pressure -Offloading No -Treatment Response Procedure Tolerated Well -Debridement - Subq, 1st 20sq cm No #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 -Time 13:42 -Correct Patient Yes -Correct Side, Site, Position Yes -Correct Procedure Yes -Procedure Performed Yes -Type of Procedure Debridement -Clinical Debridement Subcutaneous -Tissue Removed Subcutaneous -Post Debridement (cm) - Length 4 -Post Debridement (cm) - Width 3 -Post Debridement (cm) - Depth 0.1 -Total Square (Post) (cm) 12 -Area of Debridement (cm) - Length 4 -Area of Debridement (cm) - Width 3 -Total Square (Area) (cm) 12 -Tunneling No -Undermining/Tunneling No -Circular Undermining No -Wound/Ulcer Outcome Not Healed -Ulcer Cleansing Rinsed/ Irrigated with Saline -Foul Odor after Cleansing No -Bioengineered Tissue No -Bleeding Controlled with Pressure -Offloading No -Treatment Response Procedure Tolerated Well -Debridement - Subq, 20sq cm No #15 right lateral plantar -Time 13:46 -Correct Patient Yes -Correct Side, Site, Position Yes -Correct Procedure Yes -Procedure Performed Yes -Type of Procedure Debridement -Clinical Debridement Subcutaneous -Tissue Removed Subcutaneous -Post Debridement (cm) - Length 0.6 -Post Debridement (cm) - Width 0.3 -Post Debridement (cm) - Depth 0.2 -Total Square (Post) (cm) 0.18 -Area of Debridement (cm) - Length 0.6 -Area of Debridement (cm) - Width 0.3 -Total Square (Area) (cm) 0.18 -Tunneling No -Undermining/Tunneling No -Circular Undermining No -Wound/Ulcer Outcome Not Healed -Ulcer Cleansing Rinsed/ Irrigated with Saline -Foul Odor after Cleansing No -Bioengineered Tissue Yes -Type of Bioengineered Tissue Epifix 18mm Disc -Expiration Date 07/23/25 -Product Lot Number [id number] -Percent Used 100 -Lot number of Saline Used [id number] -Bleeding Controlled with Pressure -Offloading No -Treatment Response Procedure Tolerated Well -Debridement - Subq, 1st 20sq cm No -Apply Skin Sub - 1st 25 sq cm - Feet 1 -Epifix 18mm Disc 3 Query Text:18mm = 3 #13 LEFT MEDIAL PLANTAR -Time 13:47 -Correct Patient Yes -Correct Side, Site, Position Yes -Correct Procedure Yes -Procedure Performed Yes -Type of Procedure Debridement -Clinical Debridement Subcutaneous -Tissue Removed Subcutaneous -Post Debridement (cm) - Length 2.5 -Post Debridement (cm) - Width 2 -Post Debridement (cm) - Depth 0.2 -Total Square (Post) (cm) 5.0 -Area of Debridement (cm) - Length 2.5 -Area of Debridement (cm) - Width 2 -Total Square (Area) (cm) 5.0 -Tunneling No -Undermining/Tunneling No -Circular Undermining No -Wound/Ulcer Outcome Not Healed -Ulcer Cleansing Rinsed/ Irrigated with Saline -Foul Odor after Cleansing No -Bioengineered Tissue No -Bleeding Controlled with Pressure -Offloading Yes -Type of Offloading Total Contact Cast (TCC) - Left ($) -Treatment Response Procedure Tolerated Well -Debridement - Subq, 1st 20sq cm No [See Physician Procedure note for Specifics] Pain Scale: 0-10 Numeric [Pain] -Is Patient Pain Free? Yes WC - Nurse 3 - General Ulcer D/C NN Start: 11/22/20 13:00 Freq: Status: Active Protocol: Activity Type Activity Date Activity User E-Sign Co-Sign Detail Recorded Client Recorded Date Recorded By Document 11/29/20 13:59 [facility] [id number] 11/29/20 14:03 [facility] 11/29/20 13:59 Wound Care Nurse 3 [Wound Dressing] 17-Left upper leg -Ulcer Cleansing Rinsed/ Irrigated with Saline -Foul Odor after Cleansing No -Primary Dressing Applied Aquacel AG 2x2 -Primary Dressing Covered/Secured Dry Gauze & with Roll Gauze, Secured with Tape -Other Covering drsg per riccardo mcdowell rn -Aquacel AG 2x2 1 #16 right medial foot cluster -Ulcer Cleansing Rinsed/ Irrigated with Saline -Foul Odor after Cleansing No -Other Dressing epifix per md -Primary Dressing Covered/Secured Dry Gauze & with Roll Gauze, Secured with Tape -Other Covering drsgs per riccardo mcdowell rn, tcc undercast #14 Left Ant Mccloud -Ulcer Cleansing Rinsed/ Irrigated with Saline -Foul Odor after Cleansing No -Primary Dressing Applied Aquacel AG 2x2 -Primary Dressing Covered/Secured Dry Gauze & with Roll Gauze, Secured with Tape -Other Covering drsgs per riccardo mcdowell rn -Aquacel AG 2x2 0 #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 -Ulcer Cleansing Rinsed/ Irrigated with Saline -Foul Odor after Cleansing No -Primary Dressing Applied Other -Other Dressing hydrogel, drsgs per riccardo mcdowell rn -Primary Dressing Covered/Secured Dry Gauze & with Roll Gauze, Secured with Tape -Other Covering tcc undercast #15 right lateral plantar -Other Dressing epifix per md -Primary Dressing Covered/Secured Dry Gauze & with Roll Gauze, Secured with Tape -Other Covering tcc under cast #13 LEFT MEDIAL PLANTAR -Ulcer Cleansing Rinsed/ Irrigated with Saline -Foul Odor after Cleansing No -Primary Dressing Applied Aquacel AG 2x2 -Primary Dressing Covered/Secured Dry Gauze & with Roll Gauze, Secured with Tape -Other Covering drsg s per riccardo mcdowell rn -Aquacel AG 2x2 0 [Post Procedure Tolerated] -Treatment Response Procedure Tolerated Well Pain Scale: 0-10 Numeric [Pain] -Is Patient Pain Free? Yes WC - Visit Discharge [Visit Discharge Information] -Discharge Condition Stable -Ambulatory Status Ambulatory,Cane -Transportation Private Auto [Facility Notification] -Facility Type Home Health Musculoskeletal: No Tenderness to Palpation of Joints or Extremities, Muscle Wasting, - - Left transmetatarsal amputation. Right fifth ray resection. Compartments remain soft to palpate bilateral lower extremities Neurological: - - Lack of normal epicritic sensation is consistent with neuropathy Psych/Mental Status: Normal Affect, Appropriate Debridement Note Post-Debridement Measurements/Treatment WC - Nurse 2 - General Ulcer CM Notes Start: 11/22/20 13:00 Freq: Status: Active Protocol: Activity Type Activity Date Activity User E-Sign Co-Sign Detail Recorded Client Recorded Date Recorded By Document 11/22/20 13:21 CASSY [id number] 11/22/20 13:39 Document 11/29/20 13:38 [id number] 11/29/20 13:53 JF 11/22/20 11/29/20 13:21 13:38 Wound Center Nurse 2 17-Left upper leg -Time 13:41 13:39 -Correct Patient Yes Yes -Correct Side, Site, Position Yes Yes -Correct Procedure Yes Yes -Procedure Performed Yes Yes -Type of Procedure Debridement Debridement -Clinical Debridement Subcutaneous Subcutaneous -Tissue Removed Subcutaneous Subcutaneous -Post Debridement (cm) - Length 3.8 0.5 -Post Debridement (cm) - Width 5.7 0.4 -Post Debridement (cm) - Depth 0.2 0.1 -Total Square (Post) (cm) 21.66 0.20 -Area of Debridement (cm) - Length 3.8 0.5 -Area of Debridement (cm) - Width 5.7 0.4 -Total Square (Area) (cm) 21.66 0.20 -Tunneling No No -Undermining/Tunneling No No -Circular Undermining No No -Wound/Ulcer Outcome Not Healed Not Healed -Ulcer Cleansing Rinsed/ Rinsed/ Irrigated with Irrigated with Saline Saline -Foul Odor after Cleansing No No -Bioengineered Tissue No No -Bleeding Controlled with Pressure Pressure -Offloading No No -Type of Offloading Total Contact Cast (TCC) - Left ($) -Treatment Response Procedure Procedure Tolerated Well Tolerated Well -Debridement - Subq, 1st 20sq cm No Yes -Debridement, SubQ, ea addt'l 20sq cm 1 or part thereof #16 right medial foot cluster -Time 13:21 13:38 -Correct Patient Yes Yes -Correct Side, Site, Position Yes Yes -Correct Procedure Yes Yes -Procedure Performed Yes Yes -Type of Procedure Debridement Debridement -Clinical Debridement Subcutaneous Subcutaneous -Tissue Removed Subcutaneous Subcutaneous -Post Debridement (cm) - Length 0.9 3.3 -Post Debridement (cm) - Width 1 1.6 -Post Debridement (cm) - Depth 0.1 0.2 -Total Square (Post) (cm) 0.9 5.28 -Area of Debridement (cm) - Length 0.9 3.3 -Area of Debridement (cm) - Width 1 1.6 -Total Square (Area) (cm) 0.9 5.28 -Tunneling No No -Undermining/Tunneling No No -Circular Undermining No No -Wound/Ulcer Outcome Not Healed Not Healed -Ulcer Cleansing Rinsed/ Rinsed/ Irrigated with Irrigated with Saline Saline -Foul Odor after Cleansing No No -Bioengineered Tissue No No -Bleeding Controlled with Pressure Pressure -Offloading No Yes -Type of Offloading Surgical Shoe -Treatment Response Procedure Procedure Tolerated Well Tolerated Well -Debridement - Subq, 1st 20sq cm Yes No #14 Left Ant Mccloud -Time 13:24 13:41 -Correct Patient Yes Yes -Correct Side, Site, Position Yes Yes -Correct Procedure Yes Yes -Procedure Performed Yes Yes -Type of Procedure Debridement Debridement -Clinical Debridement Subcutaneous Subcutaneous -Tissue Removed Subcutaneous Subcutaneous -Post Debridement (cm) - Length 0.2 0.1 -Post Debridement (cm) - Width 0.2 0.1 -Post Debridement (cm) - Depth 0.2 0.1 -Total Square (Post) (cm) 0.04 0.01 -Area of Debridement (cm) - Length 0.2 0.1 -Area of Debridement (cm) - Width 0.2 0.1 -Total Square (Area) (cm) 0.04 0.01 -Tunneling No No -Undermining/Tunneling No No -Circular Undermining No No -Wound/Ulcer Outcome Not Healed Not Healed -Ulcer Cleansing Rinsed/ Rinsed/ Irrigated with Irrigated with Saline Saline -Foul Odor after Cleansing No No -Bioengineered Tissue No No -Bleeding Controlled with Pressure Pressure -Offloading No No -Treatment Response Procedure Procedure Tolerated Well Tolerated Well -Debridement - Subq, 1st 20sq cm No No #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 -Time 13:24 13:42 -Correct Patient Yes Yes -Correct Side, Site, Position Yes Yes -Correct Procedure Yes Yes -Procedure Performed Yes Yes -Type of Procedure Debridement Debridement -Clinical Debridement Subcutaneous Subcutaneous -Tissue Removed Subcutaneous Subcutaneous -Post Debridement (cm) - Length 18.5 4 -Post Debridement (cm) - Width 13 3 -Post Debridement (cm) - Depth 0.1 0.1 -Total Square (Post) (cm) 240.5 12 -Area of Debridement (cm) - Length 18.5 4 -Area of Debridement (cm) - Width 13 3 -Total Square (Area) (cm) 240.5 12 -Tunneling No No -Undermining/Tunneling No No -Circular Undermining No No -Wound/Ulcer Outcome Not Healed Not Healed -Ulcer Cleansing Rinsed/ Rinsed/ Irrigated with Irrigated with Saline Saline -Foul Odor after Cleansing No No -Bioengineered Tissue No No -Bleeding Controlled with Pressure Pressure -Other 2% debrided. -Offloading Yes No -Type of Offloading Surgical Shoe -Treatment Response Procedure Procedure Tolerated Well Tolerated Well -Debridement - Subq, 1st 20sq cm No No #15 right lateral plantar -Time 13:24 13:46 -Correct Patient Yes Yes -Correct Side, Site, Position Yes Yes -Correct Procedure Yes Yes -Procedure Performed Yes Yes -Type of Procedure Debridement Debridement -Clinical Debridement Subcutaneous Subcutaneous -Tissue Removed Subcutaneous Subcutaneous -Post Debridement (cm) - Length 1.8 0.6 -Post Debridement (cm) - Width 0.6 0.3 -Post Debridement (cm) - Depth 0.3 0.2 -Total Square (Post) (cm) 1.08 0.18 -Area of Debridement (cm) - Length 1.8 0.6 -Area of Debridement (cm) - Width 0.6 0.3 -Total Square (Area) (cm) 1.08 0.18 -Tunneling No No -Undermining/Tunneling No No -Circular Undermining No No -Wound/Ulcer Outcome Not Healed Not Healed -Ulcer Cleansing Rinsed/ Rinsed/ Irrigated with Irrigated with Saline Saline -Foul Odor after Cleansing No No -Bioengineered Tissue Yes Yes -Type of Bioengineered Tissue Epifix 18mm Epifix 18mm Disc Disc -Expiration Date 07/23/25 07/23/25 -Product Lot Number [id number] -Percent Used 100 100 -Lot number of Saline Used [id number] -Bleeding Controlled with Pressure Pressure -Offloading Yes No -Type of Offloading Surgical Shoe -Treatment Response Procedure Procedure Tolerated Well Tolerated Well -Debridement - Subq, 1st 20sq cm No No -Apply Skin Sub - 1st 25 sq cm - Feet 1 1 -Epifix 18mm Disc 3 3 Query Text:18mm = 3 #13 LEFT MEDIAL PLANTAR -Time 13:25 13:47 -Correct Patient Yes Yes -Correct Side, Site, Position Yes Yes -Correct Procedure Yes Yes -Procedure Performed Yes Yes -Type of Procedure Debridement Debridement -Clinical Debridement Subcutaneous Subcutaneous -Tissue Removed Subcutaneous Subcutaneous -Post Debridement (cm) - Length 2.6 2.5 -Post Debridement (cm) - Width 3 2 -Post Debridement (cm) - Depth 0.3 0.2 -Total Square (Post) (cm) 7.8 5.0 -Area of Debridement (cm) - Length 2.6 2.5 -Area of Debridement (cm) - Width 3 2 -Total Square (Area) (cm) 7.8 5.0 -Tunneling No No -Undermining/Tunneling No No -Circular Undermining No No -Wound/Ulcer Outcome Not Healed Not Healed -Ulcer Cleansing Rinsed/ Rinsed/ Irrigated with Irrigated with Saline Saline -Foul Odor after Cleansing No No -Bioengineered Tissue No No -Bleeding Controlled with Pressure Pressure -Offloading Yes Yes -Type of Offloading Surgical Shoe Total Contact Cast (TCC) - Left ($) -Treatment Response Procedure Procedure Tolerated Well Tolerated Well -Debridement - Subq, 1st 20sq cm No No Pain Scale: 0-10 Numeric Is Patient Pain Free? Yes Yes WC - Nurse 3 - General Ulcer D/C NN Start: 11/22/20 13:00 Freq: Status: Active Protocol: Activity Type Activity Date Activity User E-Sign Co-Sign Detail Recorded Client Recorded Date Recorded By Document 11/22/20 13:45 RB [id number] 11/22/20 13:48 RB Document 11/29/20 13:59 [facility] [id number] 11/29/20 14:03 BM 11/22/20 11/29/20 13:45 13:59 Wound Care Nurse 3 17-Left upper leg -Ulcer Cleansing Rinsed/ Rinsed/ Irrigated with Irrigated with Saline Saline -Foul Odor after Cleansing No -Primary Dressing Applied Aquacel AG 2x2 -Other Dressing hydrogel -Primary Dressing Covered/Secured with Dry Gauze,Dry Dry Gauze & Gauze & Roll Roll Gauze, Gauze,Secured Secured with with Tape Tape -Other Covering drsg per riccardo mcdowell rn -Aquacel AG 2x2 1 #16 right medial foot cluster -Ulcer Cleansing Rinsed/ Rinsed/ Irrigated with Irrigated with Saline Saline -Foul Odor after Cleansing No -Other Dressing hydrogel epifix per md -Primary Dressing Covered/Secured with Dry Gauze,Dry Dry Gauze & Gauze & Roll Roll Gauze, Gauze,Secured Secured with with Tape Tape -Other Covering drsgs per riccardo mcdowell rn, tcc undercast #14 Left Ant Mccloud -Ulcer Cleansing Rinsed/ Rinsed/ Irrigated with Irrigated with Saline Saline -Foul Odor after Cleansing No -Primary Dressing Applied Aquacel AG 4x4 Aquacel AG 2x2 -Primary Dressing Covered/Secured with Dry Gauze,Dry Dry Gauze & Gauze & Roll Roll Gauze, Gauze,Secured Secured with with Tape Tape -Other Covering drsgs per r july alvarez -Aquacel AG 4x4 1 -Aquacel AG 2x2 0 #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 -Ulcer Cleansing Rinsed/ Irrigated with Saline -Foul Odor after Cleansing No -Primary Dressing Applied Other -Other Dressing hydrogel, drsgs per r july rn -Primary Dressing Covered/Secured with Dry Gauze,Dry Dry Gauze & Gauze & Roll Roll Gauze, Gauze,Secured Secured with with Tape Tape -Other Covering tcc undercast #15 right lateral plantar -Other Dressing epifix per md -Primary Dressing Covered/Secured with Dry Gauze,Dry Dry Gauze & Gauze & Roll Roll Gauze, Gauze,Secured Secured with with Tape Tape -Other Covering tcc under cast #13 LEFT MEDIAL PLANTAR -Ulcer Cleansing Rinsed/ Irrigated with Saline -Foul Odor after Cleansing No -Primary Dressing Applied Aquacel AG 2x2 -Other Dressing silver -Primary Dressing Covered/Secured with Dry Gauze Dry Gauze & Roll Gauze, Secured with Tape -Other Covering primary of TCC drsg s per r applied jluy rn -Aquacel AG 2x2 0 Treatment Response Procedure Tolerated Well Pain Scale: 0-10 Numeric Is Patient Pain Free? Yes WC - Visit Discharge Discharge Condition Stable Ambulatory Status Ambulatory,[facility] Facility Type Home Health Wound debrided: anterior leg cluster Laterality: Right Wound Grade/Stage: grade 1 Type of Debridement: Excisional debridement Anesthesia Used: 5% Lidocaine Gel Depth: in the subcutaneous layer Percentage of wound debrided: - - 15% Instrument Used: #15 blade Tissue Removed: fibrous, devitalized subcutaneous, biofilm, slough Severity: Fat Layer Exposed Amount of bleeding with debridement: Mild Bleeding Controlled with: Pressure Patient tolerated procedure well - Additional Wound Wound debrided: lateral forefoot Laterality: Right Wound Grade/Stage: grade 3 Type of Debridement: Excisional debridement Anesthesia Used: 5% Lidocaine Gel Depth: in the subcutaneous layer Percentage of wound debrided: 100 Instrument Used: #15 blade Tissue Removed: fibrous, devitalized subcutaneous, biofilm, slough Severity: Fat Layer Exposed Amount of bleeding with debridement: Mild Bleeding Controlled with: Pressure Patient tolerated procedure: Patient tolerated procedure well - Additional Wound Wound debrided: medial ankle Laterality: Right Wound Grade/Stage: grade 1 Type of Debridement: Excisional debridement Anesthesia Used: 5% Lidocaine Gel Depth: in the subcutaneous layer Percentage of wound debrided: 100 Instrument Used: #15 blade Tissue Removed: fibrous, devitalized subcutaneous, biofilm, slough Severity: Fat Layer Exposed Amount of bleeding with debridement: Mild Bleeding Controlled with: Pressure Patient tolerated procedure: Patient tolerated procedure well - Additional Wound Wound debrided: plantar medial foot Laterality: Left Wound Grade/Stage: grade 3 Type of Debridement: Excisional debridement Anesthesia Used: 5% Lidocaine Gel Depth: in the subcutaneous layer Percentage of wound debrided: 100 Instrument Used: #15 blade Tissue Removed: fibrous, devitalized subcutaneous, biofilm, slough Severity: Fat Layer Exposed Amount of bleeding with debridement: Mild Bleeding Controlled with: Pressure Patient tolerated procedure: Patient tolerated procedure well Assessment/Plan Active Problems (Last Reviewed 10/31/20 @ 16:[address] 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 Right foot ulcer w/ fat layer exposed at s/p fifth ray resection site (grade 1). Right leg ulcer cluster, grade 1. Right medial ankle cluster, grade 1. left leg ulcer, grade 1. Morbid obesity. Diabetes type 2 with complications. Walking difficulty and impairment. Delayed healing Plan: I reviewed and discussed his case. Subcutaneous excisional debridement was performed as noted in the clinical panel to the left foot, right foot, right leg. To elevate and reduce salt intake. To continue with Tubigrip compression garments. I recommend application of advanced wound healing product to the right foot. Prior authorization was confirmed. The indications, benefits, anticipated application and healing time management were reviewed in detail. Verbal consent was obtained in the procedure for today. Epi fix was applied according to standard protocol and was further secured with a wound veil and Steri-Strips. He tolerated this well. He was advised to keep this dressing of the right foot clean, dry, and intact until follow-up next week. Right leg clusters had hydrogel applied and were dressed with gauze. Verbal consent was applied for a total contact cast to the left lower extremity. This was applied according to standard protocol in a rectus well padded manner. He tolerated this well. He was advised to keep this clean, dry, intact until follow up next week. Aquacel Ag was applied to the left foot prior to cast application. I discussed the need for serious offloading for limb salvage purposes. He has tried various shoes and walking boots. He presents with full weightbearing and diabetic shoes again today which is not recommended. He has struggled with the use of such as a walker of a knee roller. An electric wheelchair (extra width) is also an option and at this time I recommend this. This was not approved and several hours have been spent on this attempt with nursing staff. I suggested he review this option with his insurance broker to see if a different route of approval is more appropriate such as different codes or going through PCP / physical therapist. He started this process and still needs to communicate this with the medical team so we can help him proceed forward. I would like him to call me at [facility] later this week to provide information so I can help with the next step. His noninvasive vascular studies were reviewed from which were normal and intervention was previously not recommended. I advised him to follow-up with all of Dr. Bonilla's recommendations to optimize his healing process. He has for help scheduling this because he has not been able to do this. He has recently been seen and intervention is planned for arterial optimization. An updated bilateral duplex was also recommended to help with planning. To continue to work on decreasing glucose levels. He has a history of hyperglycemia. To continue follow-up with primary care physician. To continue to follow-up with nutritional services. To continue to follow-up as advised. He is currently making adjustments with his eating habits. He also follows up with painter rough, Dr. Arteaga who is working with him to reduce his hemoglobin A1c with medication and behavioral changes. He was last seen about 2 weeks ago. Smoking cessation was discussed in detail and he was advised on the healing impairment associated with this. To continue with his smoking cessation program. I also recommend discontinuation of nicotine products for this also contributes to small vessel contraction. I answered all of his questions today. . To return to clinic in 1 week or call sooner if questions, concerns, or progressive worsening. I answered all his questions. Note: [employer] speech recognition concrete curer software was used to create portions of this document. Sound-alike and misspelled words, as well as other concrete curer errors may be contained in the documentation.
[2020-12-06 13:51] VITALS: BP 173/56; PULSE 87; RESP 18; TEMP 37.2; BMI 48.5
--- NOTE | 2020-12-06 15:40 | PN.PCM_ITS ---
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 Code(s): L97.912 - Non-pressure chronic ulcer of unspecified part of right lower leg with fat layer exposed (4) Ulcer of right foot with fat layer exposed Status: Chronic Code(s): L97.512 - Non-pressure chronic ulcer of other part of right foot with fat layer exposed (5) Type 2 diabetes mellitus with diabetic polyneuropathy Status: Chronic Qualifiers: Code(s): E11.42 - Type 2 diabetes mellitus with diabetic polyneuropathy (6) Chronic ulcer of left foot with fat layer exposed Status: Chronic Code(s): L97.522 - Non-pressure chronic ulcer of other part of left foot with fat layer exposed (7) Localized edema Status: Chronic Code(s): R60.0 - Localized edema (8) Non-pressure chronic ulcer of unspecified part of left lower leg with fat layer exposed Status: Chronic Code(s): L97.922 - Non-pressure chronic ulcer of unspecified part of left lower leg with fat layer exposed Type of Wound Date of Service: 12/06/20 Chief Complaint: Diabetic left foot ulceration, Mancilla Grade 3. right and left leg ulcers. Right foot ulcer (prior surgery). left foot ulcer History of Wound: This 65-year-old male with multiple comorbidities was seen today for bilateral foot ulcer. His left foot ulcer onset was 12-07-2019. He is previously known to me and had a left transmetatarsal amputation performed previously. He also had a 5th ray resection performed on his right foot and he has residual ulcer at that site. He also has ulcers in a clustered manner to his right and left legs. He denies diarrhea, rash, fever, chill, nausea, vomiting. He completed hyperbaric oxygen therapy sessions. He denies redness or odor. He denies calf pain. He continues to struggle with edema management, smoking cessation, nutrition, and maintaining reduced weightbearing activity. He is ready to proceed with application of left total contact cast again today. He denies new injuries. Progress of Wound: Improving bilateral (all) - Physical Exam Vital Signs Temp Pulse Resp BP 98.9 F 87 18 173/56 H 12/06/20 13:51 12/06/20 13:51 12/06/20 13:51 12/06/20 13:51 General: Alert, Oriented x3, Cooperative, No apparent distress Extremities: No cyanosis, Capillary Refill Less than 3 Seconds, No Calf Tenderness, Diminished Peripheral Pulses, Edema Skin: Ulcer/ Wound - no purulence, no erythema, no streaking, no odor, no infection. atrophic skin noted Wound Measurements and Assessment WC - Nurse 1 - General Ulcer Measurement Start: 11/22/20 13:00 Freq: Status: Active Protocol: Activity Type Activity Date Activity User E-Sign Co-Sign Detail Recorded Client Recorded Date Recorded By Document 12/06/20 13:51 [facility] [id number] 12/06/20 14:12 [facility] 12/06/20 13:51 Wound Center Nurse 1 [Ulcer Assessment] 17-Left upper leg -Current Size (cm) - Length 8.4 -Current Size (cm) - Width 6 -Current Size (cm) - Depth 0.1 -Total Square Cm 50.4 -Exudate Type Serosanguineous -Wound Margin Distinct, Outline Attached -Granulation Amt Medium (34-66%) -Granulation Quality Red -Necrosis Amt Medium (34-66%) -Necrotic Tissue Type Adherent Slough -Texture (Maria M-wound Skin Appearance) Assessed, Scarring -Moisture (Maria M-wound Skin Appearance No Abnormality ) -Color (Maria M-wound Skin Appearance) No Abnormality -Temperature (Maria M-wound Skin No Abnormality Appearance) (Pt Warm) -Tenderness on Palpation (Maria M-wound No Skin Appearance) -Ulcer Cleansing Rinsed/ Irrigated with Saline -Foul Odor after Cleansing No -Anesthetic Used 4% Lidocaine Solution #16 right medial foot cluster -Current Size (cm) - Length 0.7 -Current Size (cm) - Width 0.4 -Current Size (cm) - Depth 0.1 -Total Square Cm 0.28 -Exudate Amt Small -Exudate Type Serosanguineous -Wound Margin Distinct, Outline Attached -Granulation Amt Medium (34-66%) -Granulation Quality Red -Necrosis Amt Medium (34-66%) -Necrotic Tissue Type Adherent Slough -Texture (Maria M-wound Skin Appearance) Assessed, Scarring -Moisture (Maria M-wound Skin Appearance No Abnormality, ) Assessed -Color (Maria M-wound Skin Appearance) No Abnormality, Assessed -Temperature (Maria M-wound Skin No Abnormality Appearance) (Pt Warm) -Tenderness on Palpation (Maria M-wound No Skin Appearance) -Ulcer Cleansing Rinsed/ Irrigated with Saline -Foul Odor after Cleansing No -Anesthetic Used 4% Lidocaine Solution #14 Left Ant Mccloud -Current Size (cm) - Length 0.1 -Current Size (cm) - Width 0.1 -Current Size (cm) - Depth 0.1 -Total Square Cm 0.01 -Exudate Amt None Present -Wound Margin Distinct, Outline Attached -Granulation Amt Medium (34-66%) -Granulation Quality Red -Necrosis Amt Medium (34-66%) -Necrotic Tissue Type Adherent Slough -Texture (Maria M-wound Skin Appearance) Assessed, Scarring -Moisture (Maria M-wound Skin Appearance No Abnormality, ) Assessed -Color (Maria M-wound Skin Appearance) No Abnormality, Assessed -Temperature (Maria M-wound Skin No Abnormality Appearance) (Pt Warm) -Tenderness on Palpation (Maria M-wound No Skin Appearance) -Ulcer Cleansing Rinsed/ Irrigated with Saline -Foul Odor after Cleansing No -Anesthetic Used 4% Lidocaine 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 -Current Size (cm) - Length 21.3 -Current Size (cm) - Width 20 -Current Size (cm) - Depth 0.2 -Total Square Cm 426.0 -Exudate Amt Small -Exudate Type Serosanguineous -Wound Margin Distinct, Outline Attached -Granulation Amt Medium (34-66%) -Granulation Quality Red -Necrosis Amt Medium (34-66%) -Necrotic Tissue Type Adherent Slough -Texture (Maria M-wound Skin Appearance) Assessed, Scarring -Moisture (Maria M-wound Skin Appearance No Abnormality, ) Assessed -Color (Maria M-wound Skin Appearance) No Abnormality, Assessed -Temperature (Maria M-wound Skin No Abnormality Appearance) (Pt Warm) -Tenderness on Palpation (Maria M-wound No Skin Appearance) -Ulcer Cleansing Rinsed/ Irrigated with Saline -Foul Odor after Cleansing No -Anesthetic Used 4% Lidocaine Solution #15 right lateral plantar -Current Size (cm) - Length 0.1 -Current Size (cm) - Width 0.1 -Current Size (cm) - Depth 0.1 -Total Square Cm 0.01 -Exudate Amt Small -Exudate Type Serosanguineous -Wound Margin Distinct, Outline Attached -Granulation Amt Medium (34-66%) -Granulation Quality Red -Necrosis Amt Medium (34-66%) -Necrotic Tissue Type Adherent Slough -Texture (Maria M-wound Skin Appearance) Assessed, Scarring -Moisture (Maria M-wound Skin Appearance No Abnormality, ) Assessed -Color (Maria M-wound Skin Appearance) No Abnormality, Assessed -Temperature (Maria M-wound Skin No Abnormality Appearance) (Pt Warm) -Tenderness on Palpation (Maria M-wound No Skin Appearance) -Ulcer Cleansing Rinsed/ Irrigated with Saline -Foul Odor after Cleansing No -Anesthetic Used 4% Lidocaine Solution #13 LEFT MEDIAL PLANTAR -Current Size (cm) - Length 2.5 -Current Size (cm) - Width 2.8 -Current Size (cm) - Depth 0.3 -Total Square Cm 7.00 -Exudate Amt Small -Exudate Type Serosanguineous -Wound Margin Distinct, Outline Attached -Granulation Amt Medium (34-66%) -Granulation Quality Red -Necrosis Amt Medium (34-66%) -Necrotic Tissue Type Adherent Slough -Texture (Maria M-wound Skin Appearance) Assessed, Scarring -Moisture (Maria M-wound Skin Appearance No Abnormality, ) Assessed -Color (Maria M-wound Skin Appearance) No Abnormality, Assessed -Temperature (Maria M-wound Skin No Abnormality Appearance) (Pt Warm) -Tenderness on Palpation (Maria M-wound No Skin Appearance) -Ulcer Cleansing Rinsed/ Irrigated with Saline -Foul Odor after Cleansing No -Anesthetic Used 4% Lidocaine Solution [Edema Assessment] -Right Calf (cm) 46.6 -Right Ankle (cm) 25.7 WC - Nurse 3 - General Ulcer D/C NN Start: 11/22/20 13:00 Freq: Status: Active Protocol: Activity Type Activity Date Activity User E-Sign Co-Sign Detail Recorded Client Recorded Date Recorded By Document 12/06/20 15:17 RB [id number] 12/06/20 15:20 RB 12/06/20 15:17 Wound Care Nurse 3 [Wound Dressing] 17-Left upper leg -Ulcer Cleansing Wound Cleanser -Primary Dressing Applied Aquacel AG 4x4 -Primary Dressing Covered/Secured Dry Gauze, with Secured with Tape -Aquacel AG 4x4 1 #16 right medial foot cluster -Primary Dressing Covered/Secured Dry Gauze,Dry with Gauze & Roll Gauze,Secured with Tape #14 Left Ant Mccloud -Other Dressing aquacel ag -Primary Dressing Covered/Secured Dry Gauze with #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 -Ulcer Cleansing Wound Cleanser -Other Dressing hydrogel -Primary Dressing Covered/Secured Dry Gauze,Dry with Gauze & Roll Gauze,Secured with Tape #15 right lateral plantar -Primary Dressing Covered/Secured Dry Gauze,Dry with Gauze & Roll Gauze,Secured with Tape #13 LEFT MEDIAL PLANTAR -Ulcer Cleansing Wound Cleanser -Other Dressing aquacel ag -Other Covering primary layer of TCC [Compression Applied] Right -Tubular Bandage Single Layer -Size of Tubigrip Used Size F -Size F ($) 1 -Other guerrero [Post Procedure Tolerated] -Treatment Response Procedure Tolerated Well Pain Scale: 0-10 Numeric [Pain] -Is Patient Pain Free? Yes Teaching: Wound Center [Wound Center Education] (Items with an * have Printed Materials Available- Please identify what is given to patient under the Teaching materials given to patient and caregiver Section. Compression Wraps & Stockings -Person Taught Patient -Teaching Method Discussion, Demonstration -Response to teaching Verbalize understanding WC - Visit Discharge [Visit Discharge Information] -Discharge Condition Stable -Ambulatory Status Ambulatory -Transportation Private Auto -Medication Reconcilliation completed No & provided to patient/care provider -Clinical Summary of Care Provided Yes Musculoskeletal: Muscle Wasting, - - TMA right. compartments soft bilateral Neurological: - - lack of normal epicritic sensation via light touch terry Psych/Mental Status: Normal Affect, Appropriate Debridement Note Post-Debridement Measurements/Treatment WC - Nurse 2 - General Ulcer CM Notes Start: 11/22/20 13:00 Freq: Status: Active Protocol: Activity Type Activity Date Activity User E-Sign Co-Sign Detail Recorded Client Recorded Date Recorded By Document 11/22/20 13:21 JF [id number] 11/22/20 13:39 Document 11/29/20 13:38 [id number] 11/29/20 13:53 11/22/20 11/29/20 13:21 13:38 Wound Center Nurse 2 17-Left upper leg -Time 13:41 13:39 -Correct Patient Yes Yes -Correct Side, Site, Position Yes Yes -Correct Procedure Yes Yes -Procedure Performed Yes Yes -Type of Procedure Debridement Debridement -Clinical Debridement Subcutaneous Subcutaneous -Tissue Removed Subcutaneous Subcutaneous -Post Debridement (cm) - Length 3.8 0.5 -Post Debridement (cm) - Width 5.7 0.4 -Post Debridement (cm) - Depth 0.2 0.1 -Total Square (Post) (cm) 21.66 0.20 -Area of Debridement (cm) - Length 3.8 0.5 -Area of Debridement (cm) - Width 5.7 0.4 -Total Square (Area) (cm) 21.66 0.20 -Tunneling No No -Undermining/Tunneling No No -Circular Undermining No No -Wound/Ulcer Outcome Not Healed Not Healed -Ulcer Cleansing Rinsed/ Rinsed/ Irrigated with Irrigated with Saline Saline -Foul Odor after Cleansing No No -Bioengineered Tissue No No -Bleeding Controlled with Pressure Pressure -Offloading No No -Type of Offloading Total Contact Cast (TCC) - Left ($) -Treatment Response Procedure Procedure Tolerated Well Tolerated Well -Debridement - Subq, 1st 20sq cm No Yes -Debridement, SubQ, ea addt'l 20sq cm 1 or part thereof #16 right medial foot cluster -Time 13:21 13:38 -Correct Patient Yes Yes -Correct Side, Site, Position Yes Yes -Correct Procedure Yes Yes -Procedure Performed Yes Yes -Type of Procedure Debridement Debridement -Clinical Debridement Subcutaneous Subcutaneous -Tissue Removed Subcutaneous Subcutaneous -Post Debridement (cm) - Length 0.9 3.3 -Post Debridement (cm) - Width 1 1.6 -Post Debridement (cm) - Depth 0.1 0.2 -Total Square (Post) (cm) 0.9 5.28 -Area of Debridement (cm) - Length 0.9 3.3 -Area of Debridement (cm) - Width 1 1.6 -Total Square (Area) (cm) 0.9 5.28 -Tunneling No No -Undermining/Tunneling No No -Circular Undermining No No -Wound/Ulcer Outcome Not Healed Not Healed -Ulcer Cleansing Rinsed/ Rinsed/ Irrigated with Irrigated with Saline Saline -Foul Odor after Cleansing No No -Bioengineered Tissue No No -Bleeding Controlled with Pressure Pressure -Offloading No Yes -Type of Offloading Surgical Shoe -Treatment Response Procedure Procedure Tolerated Well Tolerated Well -Debridement - Subq, 1st 20sq cm Yes No #14 Left Ant Mccloud -Time 13:24 13:41 -Correct Patient Yes Yes -Correct Side, Site, Position Yes Yes -Correct Procedure Yes Yes -Procedure Performed Yes Yes -Type of Procedure Debridement Debridement -Clinical Debridement Subcutaneous Subcutaneous -Tissue Removed Subcutaneous Subcutaneous -Post Debridement (cm) - Length 0.2 0.1 -Post Debridement (cm) - Width 0.2 0.1 -Post Debridement (cm) - Depth 0.2 0.1 -Total Square (Post) (cm) 0.04 0.01 -Area of Debridement (cm) - Length 0.2 0.1 -Area of Debridement (cm) - Width 0.2 0.1 -Total Square (Area) (cm) 0.04 0.01 -Tunneling No No -Undermining/Tunneling No No -Circular Undermining No No -Wound/Ulcer Outcome Not Healed Not Healed -Ulcer Cleansing Rinsed/ Rinsed/ Irrigated with Irrigated with Saline Saline -Foul Odor after Cleansing No No -Bioengineered Tissue No No -Bleeding Controlled with Pressure Pressure -Offloading No No -Treatment Response Procedure Procedure Tolerated Well Tolerated Well -Debridement - Subq, 1st 20sq cm No No #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 -Time 13: 13:42 -Correct Patient Yes Yes -Correct Side, Site, Position Yes Yes -Correct Procedure Yes Yes -Procedure Performed Yes Yes -Type of Procedure Debridement Debridement -Clinical Debridement Subcutaneous Subcutaneous -Tissue Removed Subcutaneous Subcutaneous -Post Debridement (cm) - Length 18.5 4 -Post Debridement (cm) - Width 13 3 -Post Debridement (cm) - Depth 0.1 0.1 -Total Square (Post) (cm) 240.5 12 -Area of Debridement (cm) - Length 18.5 4 -Area of Debridement (cm) - Width 13 3 -Total Square (Area) (cm) 240.5 12 -Tunneling No No -Undermining/Tunneling No No -Circular Undermining No No -Wound/Ulcer Outcome Not Healed Not Healed -Ulcer Cleansing Rinsed/ Rinsed/ Irrigated with Irrigated with Saline Saline -Foul Odor after Cleansing No No -Bioengineered Tissue No No -Bleeding Controlled with Pressure Pressure -Other 2% debrided. -Offloading Yes No -Type of Offloading Surgical Shoe -Treatment Response Procedure Procedure Tolerated Well Tolerated Well -Debridement - Subq, 1st 20sq cm No No #15 right lateral plantar -Time 13:24 13:46 -Correct Patient Yes Yes -Correct Side, Site, Position Yes Yes -Correct Procedure Yes Yes -Procedure Performed Yes Yes -Type of Procedure Debridement Debridement -Clinical Debridement Subcutaneous Subcutaneous -Tissue Removed Subcutaneous Subcutaneous -Post Debridement (cm) - Length 1.8 0.6 -Post Debridement (cm) - Width 0.6 0.3 -Post Debridement (cm) - Depth 0.3 0.2 -Total Square (Post) (cm) 1.08 0.18 -Area of Debridement (cm) - Length 1.8 0.6 -Area of Debridement (cm) - Width 0.6 0.3 -Total Square (Area) (cm) 1.08 0.18 -Tunneling No No -Undermining/Tunneling No No -Circular Undermining No No -Wound/Ulcer Outcome Not Healed Not Healed -Ulcer Cleansing Rinsed/ Rinsed/ Irrigated with Irrigated with Saline Saline -Foul Odor after Cleansing No No -Bioengineered Tissue Yes Yes -Type of Bioengineered Tissue Epifix 18mm Epifix 18mm Disc Disc -Expiration Date 07/23/25 07/23/25 -Product Lot Number [id number] -Percent Used 100 100 -Lot number of Saline Used [id number] -Bleeding Controlled with Pressure Pressure -Offloading Yes No -Type of Offloading Surgical Shoe -Treatment Response Procedure Procedure Tolerated Well Tolerated Well -Debridement - Subq, 1st 20sq cm No No -Apply Skin Sub - 1st 25 sq cm - Feet 1 1 -Epifix 18mm Disc 3 3 #13 LEFT MEDIAL PLANTAR -Time 13:25 13:47 -Correct Patient Yes Yes -Correct Side, Site, Position Yes Yes -Correct Procedure Yes Yes -Procedure Performed Yes Yes -Type of Procedure Debridement Debridement -Clinical Debridement Subcutaneous Subcutaneous -Tissue Removed Subcutaneous Subcutaneous -Post Debridement (cm) - Length 2.6 2.5 -Post Debridement (cm) - Width 3 2 -Post Debridement (cm) - Depth 0.3 0.2 -Total Square (Post) (cm) 7.8 5.0 -Area of Debridement (cm) - Length 2.6 2.5 -Area of Debridement (cm) - Width 3 2 -Total Square (Area) (cm) 7.8 5.0 -Tunneling No No -Undermining/Tunneling No No -Circular Undermining No No -Wound/Ulcer Outcome Not Healed Not Healed -Ulcer Cleansing Rinsed/ Rinsed/ Irrigated with Irrigated with Saline Saline -Foul Odor after Cleansing No No -Bioengineered Tissue No No -Bleeding Controlled with Pressure Pressure -Offloading Yes Yes -Type of Offloading Surgical Shoe Total Contact Cast (TCC) - Left ($) -Treatment Response Procedure Procedure Tolerated Well Tolerated Well -Debridement - Subq, 1st 20sq cm No No Pain Scale: 0-10 Numeric Is Patient Pain Free? Yes Yes WC - Nurse 3 - General Ulcer D/C NN Start: 11/22/20 13:00 Freq: Status: Active Protocol: Activity Type Activity Date Activity User E-Sign Co-Sign Detail Recorded Client Recorded Date Recorded By Document 11/22/20 13:45 RB [id number] 11/22/20 13:48 RB Document 11/29/20 13:59 [facility] [id number] 11/29/20 14:03 BM Document 12/06/20 15:17 RB [id number] 12/06/20 15:20 RB 11/22/20 11/29/20 12/06/20 13:45 13:59 15:17 Wound Care Nurse 3 17-Left upper leg -Ulcer Cleansing Rinsed/ Rinsed/ Wound Cleanser Irrigated with Irrigated with Saline Saline -Foul Odor after Cleansing No -Primary Dressing Applied Aquacel AG 2x2 Aquacel AG 4x4 -Other Dressing hydrogel -Primary Dressing Covered/Secured with Dry Gauze,Dry Dry Gauze & Dry Gauze, Gauze & Roll Roll Gauze, Secured with Gauze,Secured Secured with Tape with Tape Tape -Other Covering drsg per riccardo mcdowell rn -Aquacel AG 4x4 1 -Aquacel AG 2x2 1 #16 right medial foot cluster -Ulcer Cleansing Rinsed/ Rinsed/ Irrigated with Irrigated with Saline Saline -Foul Odor after Cleansing No -Other Dressing hydrogel epifix per md -Primary Dressing Covered/Secured with Dry Gauze,Dry Dry Gauze & Dry Gauze,Dry Gauze & Roll Roll Gauze, Gauze & Roll Gauze,Secured Secured with Gauze,Secured with Tape Tape with Tape -Other Covering drsgs per riccardo mcdowell rn, tcc undercast #14 Left Ant Mccloud -Ulcer Cleansing Rinsed/ Rinsed/ Irrigated with Irrigated with Saline Saline -Foul Odor after Cleansing No -Primary Dressing Applied Aquacel AG 4x4 Aquacel AG 2x2 -Other Dressing aquacel ag -Primary Dressing Covered/Secured with Dry Gauze,Dry Dry Gauze & Dry Gauze Gauze & Roll Roll Gauze, Gauze,Secured Secured with with Tape Tape -Other Covering drscata per r july rn -Aquacel AG 4x4 1 -Aquacel AG 2x2 0 #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 -Ulcer Cleansing Rinsed/ Wound Cleanser Irrigated with Saline -Foul Odor after Cleansing No -Primary Dressing Applied Other -Other Dressing hydrogel, chari hydrogel per r july rn -Primary Dressing Covered/Secured with Dry Gauze,Dry Dry Gauze & Dry Gauze,Dry Gauze & Roll Roll Gauze, Gauze & Roll Gauze,Secured Secured with Gauze,Secured with Tape Tape with Tape -Other Covering tcc undercast #15 right lateral plantar -Other Dressing epifix per md -Primary Dressing Covered/Secured with Dry Gauze,Dry Dry Gauze & Dry Gauze,Dry Gauze & Roll Roll Gauze, Gauze & Roll Gauze,Secured Secured with Gauze,Secured with Tape Tape with Tape -Other Covering tcc under cast #13 LEFT MEDIAL PLANTAR -Ulcer Cleansing Rinsed/ Wound Cleanser Irrigated with Saline -Foul Odor after Cleansing No -Primary Dressing Applied Aquacel AG 2x2 -Other Dressing silver aquacel ag -Primary Dressing Covered/Secured with Dry Gauze Dry Gauze & Roll Gauze, Secured with Tape -Other Covering primary of TCC hanny s per r primary layer applied july rn of TCC -Aquacel AG 2x2 0 Right -Tubular Bandage Single Layer -Size of Tubigrip Used Size F -Size F ($) 1 -Other geurrero Treatment Response Procedure Procedure Tolerated Well Tolerated Well Pain Scale: 0-10 Numeric Is Patient Pain Free? Yes Yes Teaching: Wound Center Compression Wraps & Stockings -Person Taught Patient -Teaching Method Discussion, Demonstration -Response to teaching Verbalize understanding WC - Visit Discharge Discharge Condition Stable Stable Ambulatory Status Ambulatory,Cane Ambulatory Transportation Private Auto Private Auto Medication Reconcilliation completed & No provided to patient/care provider Clinical Summary of Care Provided Yes Facility Type Home Health Wound debrided: leg cluster Laterality: Right Wound Grade/Stage: grade 1 Type of Debridement: Excisional debridement Anesthesia Used: 5% Lidocaine Gel Depth: in the subcutaneous layer Percentage of wound debrided: - - 5% Instrument Used: #15 blade Tissue Removed: fibrous, devitalized subcutaneous, biofilm, slough Severity: Fat Layer Exposed Amount of bleeding with debridement: Mild Bleeding Controlled with: Pressure Patient tolerated procedure well - Additional Wound Wound debrided: leg cluster Laterality: Left Wound Grade/Stage: grade 1 Type of Debridement: Excisional debridement Anesthesia Used: 5% Lidocaine Gel Depth: in the subcutaneous layer Percentage of wound debrided: - - 5% Instrument Used: #15 blade Tissue Removed: fibrous, devitalized subcutaneous, biofilm, slough Severity: Fat Layer Exposed Amount of bleeding with debridement: Mild Bleeding Controlled with: Pressure Patient tolerated procedure: Patient tolerated procedure well - Additional Wound Wound debrided: plantar foot Laterality: Left Wound Grade/Stage: grade 3 Type of Debridement: Excisional debridement Anesthesia Used: 5% Lidocaine Gel Depth: in the subcutaneous layer Percentage of wound debrided: 100 Instrument Used: #15 blade Tissue Removed: fibrous, devitalized subcutaneous, biofilm, slough Severity: Fat Layer Exposed Amount of bleeding with debridement: Mild Bleeding Controlled with: Pressure Patient tolerated procedure: Patient tolerated procedure well - Additional Wound Wound debrided: distal lateral foot Laterality: Right Wound Grade/Stage: grade 3 Type of Debridement: Excisional debridement Anesthesia Used: 5% Lidocaine Gel Depth: in the subcutaneous layer Percentage of wound debrided: 100 Instrument Used: #15 blade Tissue Removed: fibrous, devitalized subcutaneous, biofilm, slough Severity: Fat Layer Exposed Amount of bleeding with debridement: Mild Bleeding Controlled with: Pressure Patient tolerated procedure: Patient tolerated procedure well - Additional Wound Wound debrided: medial ankle Laterality: Right Wound Grade/Stage: grade 1 Type of Debridement: Excisional debridement Anesthesia Used: 5% Lidocaine Gel Depth: in the subcutaneous layer Percentage of wound debrided: 100 Instrument Used: #15 blade Tissue Removed: fibrous, devitalized subcutaneous, biofilm, slough Severity: Fat Layer Exposed Amount of bleeding with debridement: Mild Bleeding Controlled with: Pressure Patient tolerated procedure: Patient tolerated procedure well Assessment/Plan Active Problems (Last Reviewed 10/31/20 @ 16:[address] 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 Right foot ulcer w/ fat layer exposed at s/p fifth ray resection site (grade 1, prior 3). Right leg ulcer cluster, grade 1. Right medial ankle cluster, grade 1. left leg ulcer, grade 1. Morbid obesity. Diabetes type 2 with complications. Walking difficulty and impairment. Delayed healing Plan: I reviewed and discussed his case. Subcutaneous excisional debridement was performed as noted in the clinical panel to the left foot, right foot, right leg, and left leg. To elevate and reduce salt intake. To continue with Tubigrip compression garments. I recommend application of advanced wound healing product to the right foot. Prior authorization was confirmed. The indications, benefits, anticipated application and healing time management were reviewed in detail. Verbal consent was obtained in the procedure for today. Epi fix was applied according to standard protocol and was further secured with a wound veil and Steri-Strips. He tolerated this well. He was advised to keep this dressing of the right foot clean, dry, and intact until follow-up next week. Right and left leg clusters had hydrogel applied and were dressed with gauze. Verbal consent was applied for a total contact cast to the left lower extremity. This was applied according to standard protocol in a rectus well padded manner. He tolerated this well. He was advised to keep this clean, dry, intact until follow up next week. Aquacel Ag was applied to the left foot prior to cast application. I discussed the need for serious offloading for limb salvage purposes. He has tried various shoes and walking boots. He presents with full weightbearing and diabetic shoes again today which is not recommended. He has struggled with the use of such as a walker of a knee roller. An electric wheelchair (extra width) is also an option and at this time I recommend this. This was not approved and several hours have been spent on this attempt with nursing staff. I suggested he review this option with his insurance office supervisor to see if a different route of approval is more appropriate such as different codes or going through PCP / physical therapist. He started this process and still needs to communicate this with the medical team so we can help him proceed forward. His noninvasive vascular studies were reviewed from which were normal and intervention was previously not recommended. I advised him to follow-up with all of Dr. Bonilla's recommendations to optimize his healing process. He has for help scheduling this because he has not been able to do this. He has recently been seen and intervention is planned for arterial optimization. An updated bilateral duplex was also recommended to help with planning. To continue to work on decreasing glucose levels. He has a history of hyperglycemia. To continue follow-up with primary care physician. To continue to follow-up with nutritional services. To continue to follow-up as advised. He is currently making adjustments with his eating habits. He also follows up with chronic disease epidemiologist, Dr. Arteaga who is working with him to reduce his hemoglobin A1c with medication and behavioral changes. Smoking cessation was discussed in detail and he was advised on the healing impairment associated with this. To continue with his smoking cessation program. I also recommend discontinuation of nicotine products for this also contributes to small vessel contraction. I answered all of his questions today. . To return to clinic in 1 week or call sooner if questions, concerns, or progressive worsening. I answered all his questions. Note: [employer] speech recognition medical appointment clerk s oftware was used to create portions of this document. Sound-alike and misspelled words, as well as other medical appointment clerk errors may be contained in the documentation.
[2020-12-13 14:25] VITALS: BP 164/75; PULSE 98; RESP 22; TEMP 36.7; BMI 48.5
--- NOTE | 2020-12-13 17:11 | PCM.WC.PN ---
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 Code(s): L97.912 - Non-pressure chronic ulcer of unspecified part of right lower leg with fat layer exposed (4) Ulcer of right foot with fat layer exposed Status: Chronic Code(s): L97.512 - Non-pressure chronic ulcer of other part of right foot with fat layer exposed (5) Type 2 diabetes mellitus with diabetic polyneuropathy Status: Chronic Qualifiers: Code(s): E11.42 - Type 2 diabetes mellitus with diabetic polyneuropathy (6) Chronic ulcer of left foot with fat layer exposed Status: Chronic Code(s): L97.522 - Non-pressure chronic ulcer of other part of left foot with fat layer exposed (7) Localized edema Status: Chronic Code(s): R60.0 - Localized edema (8) Non-pressure chronic ulcer of unspecified part of left lower leg with fat layer exposed Status: Chronic Code(s): L97.922 - Non-pressure chronic ulcer of unspecified part of left lower leg with fat layer exposed (9) Onycholysis Status: Acute Code(s): L60.1 - Onycholysis (10) Difficulty walking Status: Acute Code(s): R26.2 - Difficulty in walking, not elsewhere classified Type of Wound Date of Service: 12/13/20 Chief Complaint: Diabetic left foot ulceration, [place] Grade 3. right and left leg ulcers. Right foot ulcer (prior surgery). left foot ulcer History of Wound: This 65-year-old male with multiple comorbidities was seen today for bilateral foot ulcer. His left foot ulcer onset was 12-07-2019. He is previously known to me and had a left transmetatarsal amputation performed previously. He also had a 5th ray resection performed on his right foot and he has residual ulcer at that site. He also has ulcers in a clustered manner to his right and left legs. He denies diarrhea,fever, chill, nausea, vomiting. He completed hyperbaric oxygen therapy sessions. He denies redness or odor. He denies calf pain. He continues to struggle with edema management, smoking cessation, nutrition, and maintaining reduced weightbearing activity. He is ready to proceed with application of left total contact cast again today. He denies new injuries. He has done well with epi fix applications to the right foot so far. He is really struggling with ambulation is trying to get approved for an electric wheelchair. The prior order I provided him was rejected. He will try to continue to work with his primary care physician and insurance company on this process. We have also given him numerous resources I reached out to several local facilities. He also has a new complaint today involving his right third toenail. He relates he bumped his toenail while coming into the building and it is now discolored. He denies pain but would like this evaluated. Progress of Wound: Improving bilateral (all). Healed right medial lower leg at the ankle. Healed proximal left leg - Physical Exam Vital Signs Temp Pulse Resp BP 98.1 F 98 22 H 164/75 H 12/13/20 14:25 12/13/20 14:25 12/13/20 14:25 12/13/20 14:25 General: Alert, Oriented x3, Cooperative, No apparent distress HEENT: Atraumatic Extremities: No cyanosis, Capillary Refill Less than 3 Seconds, No Calf Tenderness, Diminished Peripheral Pulses, Edema Skin: Ulcer/ Wound - No purulence, erythema hamstring, odor, infection. Adjacent skin is hairless and atrophic. Full epithelialization is noted to the proximal left leg and medial ankle of the right lower extremity., - - Loosening of the third toenail with dark discoloration consistent with a previous dried subungual hematoma. Upon manipulation the nail was removed and there is no remaining ulcer or infection. Wound Measurements and Assessment WC - Nurse 1 - General Ulcer Measurement Start: 11/22/20 13:00 Freq: Status: Active Protocol: Activity Type Activity Date Activity User E-Sign Co-Sign Detail Recorded Client Recorded Date Recorded By Document 12/13/20 14:25 DL [id number] 12/13/20 14:44 DL 12/13/20 14:25 Wound Center Nurse 1 [Ulcer Assessment] 17-Left upper leg -Current Size (cm) - Length 0.1 -Current Size (cm) - Width 0.1 -Current Size (cm) - Depth 0.1 -Total Square Cm 0.01 -Photo Taken No -Exudate Amt None Present -Wound Margin Indistinct, Non -Visible -Granulation Amt Small (1-33%) -Granulation Quality Evergreen -Necrosis Amt Large (67-100%) -Necrotic Tissue Type Adherent Slough -Structure Exposed N/A -Texture (Maria M-wound Skin Appearance) Scarring -Moisture (Maria M-wound Skin Appearance Dry/Scaly ) -Color (Maria M-wound Skin Appearance) Hemosiderin Staining -Temperature (Maria M-wound Skin No Abnormality Appearance) (Pt Warm) -Tenderness on Palpation (Maria M-wound No Skin Appearance) -Ulcer Cleansing Wound Cleanser -Foul Odor after Cleansing No -Anesthetic Used 4% Lidocaine Solution #16 right medial foot cluster -Current Size (cm) - Length 0.1 -Current Size (cm) - Width 0.1 -Current Size (cm) - Depth 0.1 -Total Square Cm 0.01 -Photo Taken No -Exudate Amt None Present -Wound Margin Indistinct, Non -Visible -Granulation Amt Large (67-100%) -Granulation Quality Pale,Evergreen -Necrosis Amt Small (1-33%) -Necrotic Tissue Type Adherent Slough -Structure Exposed N/A -Texture (Maria M-wound Skin Appearance) Scarring -Moisture (Maria M-wound Skin Appearance Dry/Scaly ) -Color (Maria M-wound Skin Appearance) No Abnormality -Temperature (Maria M-wound Skin No Abnormality Appearance) (Pt Warm) -Tenderness on Palpation (Maria M-wound No Skin Appearance) -Ulcer Cleansing Wound Cleanser -Foul Odor after Cleansing No -Anesthetic Used 4% Lidocaine 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 -Current Size (cm) - Length 9.7 -Current Size (cm) - Width 1 -Current Size (cm) - Depth 0.1 -Total Square Cm 9.7 -Photo Taken No -Exudate Amt None Present -Wound Margin Indistinct, Non -Visible -Granulation Amt Large (67-100%) -Granulation Quality Evergreen -Necrosis Amt Small (1-33%) -Necrotic Tissue Type Adherent Slough -Structure Exposed N/A -Texture (Maria M-wound Skin Appearance) Scarring -Moisture (Maria M-wound Skin Appearance Dry/Scaly ) -Color (Maria M-wound Skin Appearance) Hemosiderin Staining -Temperature (Maria M-wound Skin No Abnormality Appearance) (Pt Warm) -Tenderness on Palpation (Maria M-wound No Skin Appearance) -Ulcer Cleansing Wound Cleanser -Foul Odor after Cleansing No -Anesthetic Used 4% Lidocaine Solution #15 right lateral plantar -Current Size (cm) - Length 0.1 -Current Size (cm) - Width 0.1 -Current Size (cm) - Depth 0.1 -Total Square Cm 0.01 -Photo Taken No -Exudate Amt None Present -Exudate Type Serosanguineous -Wound Margin Thickened -Granulation Amt Large (67-100%) -Granulation Quality Pale -Necrosis Amt Small (1-33%) -Necrotic Tissue Type Adherent Slough -Structure Exposed N/A -Texture (Maria M-wound Skin Appearance) Scarring -Moisture (Maria M-wound Skin Appearance Dry/Scaly ) -Color (Maria M-wound Skin Appearance) Hemosiderin Staining -Temperature (Maria M-wound Skin No Abnormality Appearance) (Pt Warm) -Tenderness on Palpation (Maria M-wound No Skin Appearance) -Ulcer Cleansing Wound Cleanser -Foul Odor after Cleansing No -Anesthetic Used 4% Lidocaine Solution #13 LEFT MEDIAL PLANTAR -Current Size (cm) - Length 2.5 -Current Size (cm) - Width 2.8 -Current Size (cm) - Depth 0.4 -Total Square Cm 7.00 -Photo Taken No -Exudate Amt Medium -Exudate Type Serosanguineous -Wound Margin Thickened -Granulation Amt Medium (34-66%) -Granulation Quality Red -Necrosis Amt Medium (34-66%) -Necrotic Tissue Type Adherent Slough -Structure Exposed N/A -Texture (Maria M-wound Skin Appearance) Scarring -Moisture (Maria M-wound Skin Appearance Maceration ) -Color (Maria M-wound Skin Appearance) Hemosiderin Staining -Temperature (Maria M-wound Skin No Abnormality Appearance) (Pt Warm) -Tenderness on Palpation (Maria M-wound No Skin Appearance) -Ulcer Cleansing Wound Cleanser -Foul Odor after Cleansing No -Anesthetic Used 4% Lidocaine Solution [Edema Assessment] -Right Calf (cm) 44 -Right Ankle (cm) 25.3 -Left Calf (cm) 44 -Left Ankle (cm) 26.5 WC - Nurse 2 - General Ulcer CM Notes Start: 11/22/20 13:00 Freq: Status: Active Protocol: Activity Type Activity Date Activity User E-Sign Co-Sign Detail Recorded Client Recorded Date Recorded By Document 12/13/20 15:24 [email or web address] [id number] 12/13/20 16:38 12/13/20 15:24 Wound Center Nurse 2 [Procedure/Treatment] 17-Left upper leg -Correct Patient No -Correct Side, Site, Position No -Correct Procedure No -Procedure Performed No -Post Debridement (cm) - Length 0 -Post Debridement (cm) - Width 0 -Post Debridement (cm) - Depth 0 -Total Square (Post) (cm) 0 -Area of Debridement (cm) - Length 0 -Area of Debridement (cm) - Width 0 -Total Square (Area) (cm) 0 -Wound/Ulcer Outcome Healed- Epithelialized #16 right medial foot cluster -Correct Patient No -Correct Side, Site, Position No -Correct Procedure No -Procedure Performed No -Post Debridement (cm) - Length 0 -Post Debridement (cm) - Width 0 -Post Debridement (cm) - Depth 0 -Total Square (Post) (cm) 0 -Area of Debridement (cm) - Length 0 -Area of Debridement (cm) - Width 0 -Total Square (Area) (cm) 0 -Wound/Ulcer Outcome Healed- Epithelialized #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 -Time 16:35 -Correct Patient Yes -Correct Side, Site, Position Yes -Correct Procedure Yes -Procedure Performed Yes -Type of Procedure Debridement -Clinical Debridement Subcutaneous -Tissue Removed Subcutaneous -Post Debridement (cm) - Length 9.8 -Post Debridement (cm) - Width 1 -Post Debridement (cm) - Depth 0.1 -Total Square (Post) (cm) 9.8 -Area of Debridement (cm) - Length 9.8 -Area of Debridement (cm) - Width 1 -Total Square (Area) (cm) 9.8 -Tunneling No -Undermining/Tunneling No -Circular Undermining No -Wound/Ulcer Outcome Not Healed -Ulcer Cleansing Rinsed/ Irrigated with Saline -Foul Odor after Cleansing No -Bioengineered Tissue No -Bleeding Controlled with Pressure -Offloading No -Treatment Response Procedure Tolerated Well -Debridement - Subq, 1st 20sq cm Yes #15 right lateral plantar -Time 16:36 -Correct Patient Yes -Correct Side, Site, Position Yes -Correct Procedure Yes -Procedure Performed Yes -Type of Procedure Debridement -Clinical Debridement Subcutaneous -Tissue Removed Subcutaneous -Post Debridement (cm) - Length 1.3 -Post Debridement (cm) - Width 0.2 -Post Debridement (cm) - Depth 0.2 -Total Square (Post) (cm) 0.26 -Area of Debridement (cm) - Length 1.3 -Area of Debridement (cm) - Width 0.2 -Total Square (Area) (cm) 0.26 -Tunneling No -Undermining/Tunneling No -Circular Undermining No -Wound/Ulcer Outcome Not Healed -Ulcer Cleansing Rinsed/ Irrigated with Saline -Foul Odor after Cleansing No -Bioengineered Tissue Yes -Type of Bioengineered Tissue Epifix 18mm Disc -Expiration Date 08/22/25 -Product Lot Number [id number] -Percent Used 100 -Lot number of Saline Used [id number] -Bleeding Controlled with Pressure -Offloading Yes -Type of Offloading Surgical Shoe -Treatment Response Procedure Tolerated Well -Debridement - Subq, 1st 20sq cm No -Apply Skin Sub - 1st 25 sq cm - Feet 1 -Epifix 18mm Disc 3 Query Text:18mm = 3 #13 LEFT MEDIAL PLANTAR -Time 16:37 -Correct Patient Yes -Correct Side, Site, Position Yes -Correct Procedure Yes -Procedure Performed Yes -Type of Procedure Debridement -Clinical Debridement Subcutaneous -Tissue Removed Subcutaneous -Post Debridement (cm) - Length 2.5 -Post Debridement (cm) - Width 2.8 -Post Debridement (cm) - Depth 0.4 -Total Square (Post) (cm) 7.00 -Area of Debridement (cm) - Length 2.5 -Area of Debridement (cm) - Width 2.8 -Total Square (Area) (cm) 7.00 -Tunneling No -Undermining/Tunneling No -Circular Undermining No -Wound/Ulcer Outcome Not Healed -Ulcer Cleansing Rinsed/ Irrigated with Saline -Foul Odor after Cleansing No -Bioengineered Tissue No -Bleeding Controlled with Pressure -Offloading Yes -Type of Offloading Total Contact Cast (TCC) - Left ($) -Treatment Response Procedure Tolerated Well -Debridement - Subq, 1st 20sq cm No [See Physician Procedure note for Specifics] Pain Scale: 0-10 Numeric [Pain] -Is Patient Pain Free? Yes WC - Nurse 3 - General Ulcer D/C NN Start: 11/22/20 13:00 Freq: Status: Active Protocol: Activity Type Activity Date Activity User E-Sign Co-Sign Detail Recorded Client Recorded Date Recorded By Document 12/13/20 15:43 [facility] [id number] 12/13/20 15:46 [facility] 12/13/20 15:43 Wound Care Nurse 3 [Wound Dressing] #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 -Ulcer Cleansing Rinsed/ Irrigated with Saline -Foul Odor after Cleansing No -Primary Dressing Applied Other -Other Dressing hydrogel -Primary Dressing Covered/Secured Dry Gauze & with Roll Gauze, Secured with Tape -Other Covering drsg per riccardo mcdowell rn #15 right lateral plantar -Other Dressing epifix -Primary Dressing Covered/Secured Dry Gauze & with Roll Gauze, Secured with Tape -Other Covering drsg per riccardo mcdowell rn #13 LEFT MEDIAL PLANTAR -Other Dressing epifix -Primary Dressing Covered/Secured Dry Gauze & with Roll Gauze, Secured with Tape,Other -Other Covering tcc undercast; drsg per riccardo mcdowell rn [Compression Applied] Left -Other tcc undercast per riccardo mcdowell rn Right -Tubular Bandage Single Layer -Size of Tubigrip Used Size E -Size E ($) 1 [Post Procedure Tolerated] -Treatment Response Procedure Tolerated Well Pain Scale: 0-10 Numeric [Pain] -Is Patient Pain Free? Yes WC - Visit Discharge [Visit Discharge Information] -Discharge Condition Stable -Ambulatory Status Ambulatory,Cane -Transportation Private Auto [Facility Notification] -Facility Type Home Health Musculoskeletal: No Tenderness to Palpation of Joints or Extremities, Muscle Wasting, - - Left transmetatarsal amputation Neurological: - - Lack of normal epicritic sensation light touch is consistent with neuropathic status Psych/Mental Status: Normal Affect, Appropriate Debridement Note Post-Debridement Measurements/Treatment WC - Nurse 2 - General Ulcer CM Notes Start: 11/22/20 13:00 Freq: Status: Active Protocol: Activity Type Activity Date Activity User E-Sign Co-Sign Detail Recorded Client Recorded Date Recorded By Document 11/22/20 13:21 [id number] 11/22/20 13:39 Document 11/29/20 13:38 [id number] 11/29/20 13:53 Document 12/06/20 16:05 [id number] 12/06/20 16:12 Document 12/13/20 15:24 [id number] 12/13/20 16:38 11/22/20 11/29/20 12/06/20 13:21 13:38 16:05 Wound Center Nurse 2 17-Left upper leg -Time 13:41 13:39 16:05 -Correct Patient Yes Yes Yes -Correct Side, Site, Position Yes Yes Yes -Correct Procedure Yes Yes Yes -Procedure Performed Yes Yes Yes -Type of Procedure Debridement Debridement Debridement -Clinical Debridement Subcutaneous Subcutaneous Subcutaneous -Tissue Removed Subcutaneous Subcutaneous Subcutaneous -Post Debridement (cm) - Length 3.8 0.5 2.5 -Post Debridement (cm) - Width 5.7 0.4 2 -Post Debridement (cm) - Depth 0.2 0.1 0.1 -Total Square (Post) (cm) 21.66 0.20 5.0 -Area of Debridement (cm) - Length 3.8 0.5 2.5 -Area of Debridement (cm) - Width 5.7 0.4 2 -Total Square (Area) (cm) 21.66 0.20 5.0 -Tunneling No No No -Undermining/Tunneling No No No -Circular Undermining No No No -Wound/Ulcer Outcome Not Healed Not Healed Not Healed -Ulcer Cleansing Rinsed/ Rinsed/ Rinsed/ Irrigated with Irrigated with Irrigated with Saline Saline Saline -Foul Odor after Cleansing No No No -Bioengineered Tissue No No No -Bleeding Controlled with Pressure Pressure Pressure -Offloading No No No -Type of Offloading Total Contact Cast (TCC) - Left ($) -Treatment Response Procedure Procedure Procedure Tolerated Well Tolerated Well Tolerated Well -Debridement - Subq, 1st 20sq cm No Yes Yes -Debridement, SubQ, ea addt'l 20sq cm 1 or part thereof #16 right medial foot cluster -Time 13:21 13:38 16:06 -Correct Patient Yes Yes Yes -Correct Side, Site, Position Yes Yes Yes -Correct Procedure Yes Yes Yes -Procedure Performed Yes Yes Yes -Type of Procedure Debridement Debridement Debridement -Clinical Debridement Subcutaneous Subcutaneous Subcutaneous -Tissue Removed Subcutaneous Subcutaneous Subcutaneous -Post Debridement (cm) - Length 0.9 3.3 0.8 -Post Debridement (cm) - Width 1 1.6 0.4 -Post Debridement (cm) - Depth 0.1 0.2 0.1 -Total Square (Post) (cm) 0.9 5.28 0.32 -Area of Debridement (cm) - Length 0.9 3.3 0.8 -Area of Debridement (cm) - Width 1 1.6 0.4 -Total Square (Area) (cm) 0.9 5.28 0.32 -Tunneling No No No -Undermining/Tunneling No No No -Circular Undermining No No No -Wound/Ulcer Outcome Not Healed Not Healed Not Healed -Ulcer Cleansing Rinsed/ Rinsed/ Rinsed/ Irrigated with Irrigated with Irrigated with Saline Saline Saline -Foul Odor after Cleansing No No No -Bioengineered Tissue No No Yes -Type of Bioengineered Tissue Epifix 18mm Disc -Expiration Date 08/22/25 -Product Lot Number [id number] -Percent Used 100 -Lot number of Saline Used [id number] -Bleeding Controlled with Pressure Pressure Pressure -Offloading No Yes Yes -Type of Offloading Surgical Shoe Surgical Shoe -Treatment Response Procedure Procedure Procedure Tolerated Well Tolerated Well Tolerated Well -Debridement - Subq, 1st 20sq cm Yes No No -Apply Skin Sub - 1st 25 sq cm - Feet 0 -Epifix 18mm Disc 0 Query Text:18mm = 3 #14 Left Ant Mccloud -Time 13:24 13:41 16:07 -Correct Patient Yes Yes Yes -Correct Side, Site, Position Yes Yes Yes -Correct Procedure Yes Yes Yes -Procedure Performed Yes Yes Yes -Type of Procedure Debridement Debridement Debridement -Clinical Debridement Subcutaneous Subcutaneous Subcutaneous -Tissue Removed Subcutaneous Subcutaneous Subcutaneous -Post Debridement (cm) - Length 0.2 0.1 0.1 -Post Debridement (cm) - Width 0.2 0.1 0.1 -Post Debridement (cm) - Depth 0.2 0.1 0.1 -Total Square (Post) (cm) 0.04 0.01 0.01 -Area of Debridement (cm) - Length 0.2 0.1 0.1 -Area of Debridement (cm) - Width 0.2 0.1 0.1 -Total Square (Area) (cm) 0.04 0.01 0.01 -Tunneling No No No -Undermining/Tunneling No No No -Circular Undermining No No No -Wound/Ulcer Outcome Not Healed Not Healed Not Healed -Ulcer Cleansing Rinsed/ Rinsed/ Rinsed/ Irrigated with Irrigated with Irrigated with Saline Saline Saline -Foul Odor after Cleansing No No No -Bioengineered Tissue No No No -Bleeding Controlled with Pressure Pressure Pressure -Offloading No No No -Treatment Response Procedure Procedure Procedure Tolerated Well Tolerated Well Tolerated Well -Debridement - Subq, 1st 20sq cm No No No #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 -Time 13:24 13:42 16:08 -Correct Patient Yes Yes Yes -Correct Side, Site, Position Yes Yes Yes -Correct Procedure Yes Yes Yes -Procedure Performed Yes Yes Yes -Type of Procedure Debridement Debridement Debridement -Clinical Debridement Subcutaneous Subcutaneous Subcutaneous -Tissue Removed Subcutaneous Subcutaneous Subcutaneous -Post Debridement (cm) - Length 18.5 4 7 -Post Debridement (cm) - Width 13 3 3 -Post Debridement (cm) - Depth 0.1 0.1 0.1 -Total Square (Post) (cm) 240.5 12 21 -Area of Debridement (cm) - Length 18.5 4 7 -Area of Debridement (cm) - Width 13 3 3 -Total Square (Area) (cm) 240.5 12 21 -Tunneling No No No -Undermining/Tunneling No No No -Circular Undermining No No No -Wound/Ulcer Outcome Not Healed Not Healed Not Healed -Ulcer Cleansing Rinsed/ Rinsed/ Rinsed/ Irrigated with Irrigated with Irrigated with Saline Saline Saline -Foul Odor after Cleansing No No No -Bioengineered Tissue No No No -Bleeding Controlled with Pressure Pressure Pressure -Other 2% debrided. -Offloading Yes No No -Type of Offloading Surgical Shoe -Treatment Response Procedure Procedure Procedure Tolerated Well Tolerated Well Tolerated Well -Debridement - Subq, 1st 20sq cm No No No #15 right lateral plantar -Time 13:24 13:46 16:10 -Correct Patient Yes Yes Yes -Correct Side, Site, Position Yes Yes Yes -Correct Procedure Yes Yes Yes -Procedure Performed Yes Yes Yes -Type of Procedure Debridement Debridement Debridement -Clinical Debridement Subcutaneous Subcutaneous Subcutaneous -Tissue Removed Subcutaneous Subcutaneous Subcutaneous -Post Debridement (cm) - Length 1.8 0.6 1.0 -Post Debridement (cm) - Width 0.6 0.3 0.3 -Post Debridement (cm) - Depth 0.3 0.2 0.2 -Total Square (Post) (cm) 1.08 0.18 0.30 -Area of Debridement (cm) - Length 1.8 0.6 1.0 -Area of Debridement (cm) - Width 0.6 0.3 0.3 -Total Square (Area) (cm) 1.08 0.18 0.30 -Tunneling No No No -Undermining/Tunneling No No No -Circular Undermining No No No -Wound/Ulcer Outcome Not Healed Not Healed Not Healed -Ulcer Cleansing Rinsed/ Rinsed/ Rinsed/ Irrigated with Irrigated with Irrigated with Saline Saline Saline -Foul Odor after Cleansing No No No -Bioengineered Tissue Yes Yes Yes -Type of Bioengineered Tissue Epifix 18mm Epifix 18mm Epifix 18mm Disc Disc Disc -Expiration Date 07/23/25 07/23/25 08/22/25 -Product Lot Number [id number] -Percent Used 100 100 100 -Lot number of Saline Used [id number] -Bleeding Controlled with Pressure Pressure Pressure -Offloading Yes No No -Type of Offloading Surgical Shoe -Treatment Response Procedure Procedure Procedure Tolerated Well Tolerated Well Tolerated Well -Debridement - Subq, 1st 20sq cm No No No -Apply Skin Sub - 1st 25 sq cm - Feet 1 1 1 -Epifix 18mm Disc 3 3 3 Query Text:18mm = 3 #13 LEFT MEDIAL PLANTAR -Time 13:25 13:47 16:11 -Correct Patient Yes Yes Yes -Correct Side, Site, Position Yes Yes Yes -Correct Procedure Yes Yes Yes -Procedure Performed Yes Yes Yes -Type of Procedure Debridement Debridement Debridement -Clinical Debridement Subcutaneous Subcutaneous Subcutaneous -Tissue Removed Subcutaneous Subcutaneous Subcutaneous -Post Debridement (cm) - Length 2.6 2.5 2.5 -Post Debridement (cm) - Width 3 2 2.9 -Post Debridement (cm) - Depth 0.3 0.2 0.3 -Total Square (Post) (cm) 7.8 5.0 7.25 -Area of Debridement (cm) - Length 2.6 2.5 2.5 -Area of Debridement (cm) - Width 3 2 2.9 -Total Square (Area) (cm) 7.8 5.0 7.25 -Tunneling No No No -Undermining/Tunneling No No No -Circular Undermining No No No -Wound/Ulcer Outcome Not Healed Not Healed Not Healed -Ulcer Cleansing Rinsed/ Rinsed/ Rinsed/ Irrigated with Irrigated with Irrigated with Saline Saline Saline -Foul Odor after Cleansing No No No -Bioengineered Tissue No No No -Bleeding Controlled with Pressure Pressure Pressure -Offloading Yes Yes Yes -Type of Offloading Surgical Shoe Total Contact Total Contact Cast (TCC) - Cast (TCC) - Left ($) Left ($) -Treatment Response Procedure Procedure Procedure Tolerated Well Tolerated Well Tolerated Well -Debridement - Subq, 1st 20sq cm No No No Pain Scale: 0-10 Numeric Is Patient Pain Free? Yes Yes Yes 12/13/20 15:24 Wound Center Nurse 2 17-Left upper leg -Time -Correct Patient No -Correct Side, Site, Position No -Correct Procedure No -Procedure Performed No -Type of Procedure -Clinical Debridement -Tissue Removed -Post Debridement (cm) - Length 0 -Post Debridement (cm) - Width 0 -Post Debridement (cm) - Depth 0 -Total Square (Post) (cm) 0 -Area of Debridement (cm) - Length 0 -Area of Debridement (cm) - Width 0 -Total Square (Area) (cm) 0 -Tunneling -Undermining/Tunneling -Circular Undermining -Wound/Ulcer Outcome Healed- Epithelialized -Ulcer Cleansing -Foul Odor after Cleansing -Bioengineered Tissue -Bleeding Controlled with -Offloading -Type of Offloading -Treatment Response -Debridement - Subq, 1st 20sq cm -Debridement, SubQ, ea addt'l 20sq cm or part thereof #16 right medial foot cluster -Time -Correct Patient No -Correct Side, Site, Position No -Correct Procedure No -Procedure Performed No -Type of Procedure -Clinical Debridement -Tissue Removed -Post Debridement (cm) - Length 0 -Post Debridement (cm) - Width 0 -Post Debridement (cm) - Depth 0 -Total Square (Post) (cm) 0 -Area of Debridement (cm) - Length 0 -Area of Debridement (cm) - Width 0 -Total Square (Area) (cm) 0 -Tunneling -Undermining/Tunneling -Circular Undermining -Wound/Ulcer Outcome Healed- Epithelialized -Ulcer Cleansing -Foul Odor after Cleansing -Bioengineered Tissue -Type of Bioengineered Tissue -Expiration Date -Product Lot Number -Percent Used -Lot number of Saline Used -Bleeding Controlled with -Offloading -Type of Offloading -Treatment Response -Debridement - Subq, 1st 20sq cm -Apply Skin Sub - 1st 25 sq cm - Feet -Epifix 18mm Disc Query Text:18mm = 3 #14 Left Ant Mccloud -Time -Correct Patient -Correct Side, Site, Position -Correct Procedure -Procedure Performed -Type of Procedure -Clinical Debridement -Tissue Removed -Post Debridement (cm) - Length -Post Debridement (cm) - Width -Post Debridement (cm) - Depth -Total Square (Post) (cm) -Area of Debridement (cm) - Length -Area of Debridement (cm) - Width -Total Square (Area) (cm) -Tunneling -Undermining/Tunneling -Circular Undermining -Wound/Ulcer Outcome -Ulcer Cleansing -Foul Odor after Cleansing -Bioengineered Tissue -Bleeding Controlled with -Offloading -Treatment Response -Debridement - Subq, 1st 20sq cm #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 -Time 16:35 -Correct Patient Yes -Correct Side, Site, Position Yes -Correct Procedure Yes -Procedure Performed Yes -Type of Procedure Debridement -Clinical Debridement Subcutaneous -Tissue Removed Subcutaneous -Post Debridement (cm) - Length 9.8 -Post Debridement (cm) - Width 1 -Post Debridement (cm) - Depth 0.1 -Total Square (Post) (cm) 9.8 -Area of Debridement (cm) - Length 9.8 -Area of Debridement (cm) - Width 1 -Total Square (Area) (cm) 9.8 -Tunneling No -Undermining/Tunneling No -Circular Undermining No -Wound/Ulcer Outcome Not Healed -Ulcer Cleansing Rinsed/ Irrigated with Saline -Foul Odor after Cleansing No -Bioengineered Tissue No -Bleeding Controlled with Pressure -Other -Offloading No -Type of Offloading -Treatment Response Procedure Tolerated Well -Debridement - Subq, 1st 20sq cm Yes #15 right lateral plantar -Time 16:36 -Correct Patient Yes -Correct Side, Site, Position Yes -Correct Procedure Yes -Procedure Performed Yes -Type of Procedure Debridement -Clinical Debridement Subcutaneous -Tissue Removed Subcutaneous -Post Debridement (cm) - Length 1.3 -Post Debridement (cm) - Width 0.2 -Post Debridement (cm) - Depth 0.2 -Total Square (Post) (cm) 0.26 -Area of Debridement (cm) - Length 1.3 -Area of Debridement (cm) - Width 0.2 -Total Square (Area) (cm) 0.26 -Tunneling No -Undermining/Tunneling No -Circular Undermining No -Wound/Ulcer Outcome Not Healed -Ulcer Cleansing Rinsed/ Irrigated with Saline -Foul Odor after Cleansing No -Bioengineered Tissue Yes -Type of Bioengineered Tissue Epifix 18mm Disc -Expiration Date 08/22/25 -Product Lot Number [id number] -Percent Used 100 -Lot number of Saline Used [id number] -Bleeding Controlled with Pressure -Offloading Yes -Type of Offloading Surgical Shoe -Treatment Response Procedure Tolerated Well -Debridement - Subq, 1st 20sq cm No -Apply Skin Sub - 1st 25 sq cm - Feet 1 -Epifix 18mm Disc 3 Query Text:18mm = 3 #13 LEFT MEDIAL PLANTAR -Time 16:37 -Correct Patient Yes -Correct Side, Site, Position Yes -Correct Procedure Yes -Procedure Performed Yes -Type of Procedure Debridement -Clinical Debridement Subcutaneous -Tissue Removed Subcutaneous -Post Debridement (cm) - Length 2.5 -Post Debridement (cm) - Width 2.8 -Post Debridement (cm) - Depth 0.4 -Total Square (Post) (cm) 7.00 -Area of Debridement (cm) - Length 2.5 -Area of Debridement (cm) - Width 2.8 -Total Square (Area) (cm) 7.00 -Tunneling No -Undermining/Tunneling No -Circular Undermining No -Wound/Ulcer Outcome Not Healed -Ulcer Cleansing Rinsed/ Irrigated with Saline -Foul Odor after Cleansing No -Bioengineered Tissue No -Bleeding Controlled with Pressure -Offloading Yes -Type of Offloading Total Contact Cast (TCC) - Left ($) -Treatment Response Procedure Tolerated Well -Debridement - Subq, 1st 20sq cm No Pain Scale: 0-10 Numeric Is Patient Pain Free? Yes WC - Nurse 3 - General Ulcer D/C NN Start: 11/22/20 13:00 Freq: Status: Active Protocol: Activity Type Activity Date Activity User E-Sign Co-Sign Detail Recorded Client Recorded Date Recorded By Document 11/22/20 13:45 RB [id number] 11/22/20 13:48 RB Document 11/29/20 13:59 BMF [id number] 11/29/20 14:03 BMF Document 12/06/20 15:17 RB [id number] 12/06/20 15:20 RB Document 12/13/20 15:43 BMF [id number] 12/13/20 15:46 BMF 11/22/20 11/29/20 12/06/20 13:45 13:59 15:17 Wound Care Nurse 3 17-Left upper leg -Ulcer Cleansing Rinsed/ Rinsed/ Wound Cleanser Irrigated with Irrigated with Saline Saline -Foul Odor after Cleansing No -Primary Dressing Applied Aquacel AG 2x2 Aquacel AG 4x4 -Other Dressing hydrogel -Primary Dressing Covered/Secured with Dry Gauze,Dry Dry Gauze & Dry Gauze, Gauze & Roll Roll Gauze, Secured with Gauze,Secured Secured with Tape with Tape Tape -Other Covering drsg per r july rn -Aquacel AG 4x4 1 -Aquacel AG 2x2 1 #16 right medial foot cluster -Ulcer Cleansing Rinsed/ Rinsed/ Irrigated with Irrigated with Saline Saline -Foul Odor after Cleansing No -Other Dressing hydrogel epifix per md -Primary Dressing Covered/Secured with Dry Gauze,Dry Dry Gauze & Dry Gauze,Dry Gauze & Roll Roll Gauze, Gauze & Roll Gauze,Secured Secured with Gauze,Secured with Tape Tape with Tape -Other Covering drsgs per r july rn, tcc undercast #14 Left Ant Mccloud -Ulcer Cleansing Rinsed/ Rinsed/ Irrigated with Irrigated with Saline Saline -Foul Odor after Cleansing No -Primary Dressing Applied Aquacel AG 4x4 Aquacel AG 2x2 -Other Dressing aquacel ag -Primary Dressing Covered/Secured with Dry Gauze,Dry Dry Gauze & Dry Gauze Gauze & Roll Roll Gauze, Gauze,Secured Secured with with Tape Tape -Other Covering drsgs per riccardo mcdowell rn -Aquacel AG 4x4 1 -Aquacel AG 2x2 0 #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 -Ulcer Cleansing Rinsed/ Wound Cleanser Irrigated with Saline -Foul Odor after Cleansing No -Primary Dressing Applied Other -Other Dressing hydrogel, drsgs hydrogel per riccardo mcdowell rn -Primary Dressing Covered/Secured with Dry Gauze,Dry Dry Gauze & Dry Gauze,Dry Gauze & Roll Roll Gauze, Gauze & Roll Gauze,Secured Secured with Gauze,Secured with Tape Tape with Tape -Other Covering tcc undercast #15 right lateral plantar -Other Dressing epifix per md -Primary Dressing Covered/Secured with Dry Gauze,Dry Dry Gauze & Dry Gauze,Dry Gauze & Roll Roll Gauze, Gauze & Roll Gauze,Secured Secured with Gauze,Secured with Tape Tape with Tape -Other Covering tcc under cast #13 LEFT MEDIAL PLANTAR -Ulcer Cleansing Rinsed/ Wound Cleanser Irrigated with Saline -Foul Odor after Cleansing No -Primary Dressing Applied Aquacel AG 2x2 -Other Dressing silver aquacel ag -Primary Dressing Covered/Secured with Dry Gauze Dry Gauze & Roll Gauze, Secured with Tape -Other Covering primary of TCC drscrow s per r primary layer applied july alvarez of TCC -Aquacel AG 2x2 0 Left -Other Right -Tubular Bandage Single Layer -Size of Tubigrip Used Size F -Size E ($) -Size F ($) 1 -Other guerrero Treatment Response Procedure Procedure Tolerated Well Tolerated Well Pain Scale: 0-10 Numeric Is Patient Pain Free? Yes Yes Teaching: Wound Center Compression Wraps & Stockings -Person Taught Patient -Teaching Method Discussion, Demonstration -Response to teaching Verbalize understanding WC - Visit Discharge Discharge Condition Stable Stable Ambulatory Status Ambulatory,Cane Ambulatory Transportation Private Auto Private Auto Medication Reconcilliation completed & No provided to patient/care provider Clinical Summary of Care Provided Yes Facility Type Home Health 12/13/20 15:43 Wound Care Nurse 3 17-Left upper leg -Ulcer Cleansing -Foul Odor after Cleansing -Primary Dressing Applied -Other Dressing -Primary Dressing Covered/Secured with -Other Covering -Aquacel AG 4x4 -Aquacel AG 2x2 #16 right medial foot cluster -Ulcer Cleansing -Foul Odor after Cleansing -Other Dressing -Primary Dressing Covered/Secured with -Other Covering #14 Left Ant Mccloud -Ulcer Cleansing -Foul Odor after Cleansing -Primary Dressing Applied -Other Dressing -Primary Dressing Covered/Secured with -Other Covering -Aquacel AG 4x4 -Aquacel AG 2x2 #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 -Ulcer Cleansing Rinsed/ Irrigated with Saline -Foul Odor after Cleansing No -Primary Dressing Applied Other -Other Dressing hydrogel -Primary Dressing Covered/Secured with Dry Gauze & Roll Gauze, Secured with Tape -Other Covering hanny per riccardo mcdowell rn #15 right lateral plantar -Other Dressing epifix -Primary Dressing Covered/Secured with Dry Gauze & Roll Gauze, Secured with Tape -Other Covering hanny per riccardo mcdowell rn #13 LEFT MEDIAL PLANTAR -Ulcer Cleansing -Foul Odor after Cleansing -Primary Dressing Applied -Other Dressing epifix -Primary Dressing Covered/Secured with Dry Gauze & Roll Gauze, Secured with Tape,Other -Other Covering tcc undercast; hanny per riccardo mcdowell rn -Aquacel AG 2x2 Left -Other tcc undercast per riccardo mcdowell rn Right -Tubular Bandage Single Layer -Size of Tubigrip Used Size E -Size E ($) 1 -Size F ($) -Other Treatment Response Procedure Tolerated Well Pain Scale: 0-10 Numeric Is Patient Pain Free? Yes Teaching: Wound Center Compression Wraps & Stockings -Person Taught -Teaching Method -Response to teaching WC - Visit Discharge Discharge Condition Stable Ambulatory Status Ambulatory,Cane Transportation Private Auto Medication Reconcilliation completed & provided to patient/care provider Clinical Summary of Care Provided Facility Type Home Health Wound debrided: plantar foot Laterality: Left Wound Grade/Stage: grade 3 Type of Debridement: Excisional debridement Anesthesia Used: 5% Lidocaine Gel Depth: in the subcutaneous layer Percentage of wound debrided: 100 Instrument Used: #15 blade Tissue Removed: fibrous, devitalized subcutaneous, biofilm, slough Severity: Fat Layer Exposed Amount of bleeding with debridement: Mild Bleeding Controlled with: Pressure Patient tolerated procedure well - Additional Wound Wound debrided: leg cluster and right lateral foot Laterality: Right Wound Grade/Stage: grade 1 Type of Debridement: Excisional debridement Anesthesia Used: 5% Lidocaine Gel Depth: in the subcutaneous layer Percentage of wound debrided: 100 - foot, - - 5% leg Instrument Used: #15 blade Tissue Removed: fibrous, devitalized subcutaneous, biofilm, slough Severity: Fat Layer Exposed Amount of bleeding with debridement: Mild Bleeding Controlled with: Pressure Patient tolerated procedure: Patient tolerated procedure well Assessment/Plan Active Problems (Last Reviewed 10/31/20 @ 16:[address] 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 Right foot ulcer w/ fat layer exposed at s/p fifth ray resection site (grade 1, prior 3). Right leg ulcer cluster, grade 1. Right medial ankle cluster, grade 1 - healed. left leg ulcer, grade 1 - healed. Onycholysis now nail avulsion right third toe. Morbid obesity. Diabetes type 2 with complications. Walking difficulty and impairment. Delayed healing Plan: I reviewed and discussed his case. Subcutaneous excisional debridement was performed as noted in the clinical panel to the left foot, right foot, right leg, and left leg. 2 sites have healed and are fully epithelialized as noted. The left third toe was evaluated and is under the nail is loose. A hemostat was used to complete the nail avulsion. Local anesthetic was not required due to his neuropathic status. There is no open ulcer or infection noted. A dressing is not required at this site. To elevate and reduce salt intake. To continue with Tubigrip compression garments. I recommend application of advanced wound healing product to the right foot. Prior authorization was confirmed. The indications, benefits, anticipated application and healing time management were reviewed in detail. Verbal consent was obtained in the procedure for today. Epi fix was applied according to standard protocol and was further secured with a wound veil and Steri-Strips. He tolerated this well. He was advised to keep this dressing of the right foot clean, dry, and intact until follow-up next week. Right and left leg clusters had hydrogel applied and were dressed with gauze. Verbal consent was applied for a total contact cast to the left lower extremity. This was applied according to standard protocol in a rectus well padded manner. He tolerated this well. He was advised to keep this clean, dry, intact until follow up next week. Aquacel Ag was applied to the left foot prior to cast application. I discussed the need for serious offloading for limb salvage purposes. He has tried various shoes and walking boots. He presents with full weightbearing and diabetic shoes again today which is not recommended. He has struggled with the use of such as a walker of a knee roller. An electric wheelchair (extra width) is also an option and at this time I recommend this. This was not approved. I suggested he review this option with his insurance healthcare consultant to see if a different route of approval is more appropriate such as different codes or going through PCP / physical therapist. He started this process and still needs to communicate this with the medical team so we can help him proceed forward. His noninvasive vascular studies were reviewed from which were normal and intervention was previously not recommended. I advised him to follow-up with all of Dr. Bonilla's recommendations to optimize his healing process. He has for help scheduling this because he has not been able to do this. He has recently been seen and intervention is planned for arterial optimization. An updated bilateral duplex was also recommended to help with planning. To continue to work on decreasing glucose levels. He has a history of hyperglycemia. To continue follow-up with primary care physician. To continue to follow-up with nutritional services. To continue to follow-up as advised. He is currently making adjustments with his nutritional habits. He also follows up with blueprint tracer, Dr. Arteaga who is working with him to reduce his hemoglobin A1c with medication and behavioral changes. Smoking cessation was discussed in detail and he was advised on the healing impairment associated with this. To continue with his smoking cessation program. I also recommend discontinuation of nicotine products for this also contributes to small vessel contraction. I answered all of his questions today. . To return to clinic in 1 week or call sooner if questions, concerns, or progressive worsening. Will follow up with Dr. Powell for surgical follow-up of his right fifth ray resection. I answered all his questions. Note: [employer] speech recognition model and mold maker plaster software was used to create portions of this document. Sound-alike and misspelled words, as well as other model and mold maker plaster errors may be contained in the documentation.
[2020-12-19 10:37] VITALS: BP 158/79; PULSE 78; RESP 18; TEMP 35.8; BMI 48.5
--- NOTE | 2020-12-19 12:15 | PN.PCM_ITS ---
(1) Non-pressure chronic ulcer of right calf with fat layer exposed Status: Chronic Code(s): L97.212 - Non-pressure chronic ulcer of right calf with fat layer exposed (2) Non-pressure chronic ulcer of other part of left foot with fat layer exposed Status: Chronic Code(s): L97.522 - Non-pressure chronic ulcer of other part of left foot with fat layer exposed (3) Non-pressure chronic ulcer of other part of right foot with fat layer ex posed Status: Chronic Code(s): L97.512 - Non-pressure chronic ulcer of other part of right foot with fat layer exposed (4) Difficulty walking Status: Chronic Code(s): R26.2 - Difficulty in walking, not elsewhere classified (5) Diabetic polyneuropathy Status: Chronic Qualifiers: Code(s): E11.42 - Type 2 diabetes mellitus with diabetic polyneuropathy (6) Diabetes mellitus Status: Chronic Qualifiers: Diabetes mellitus type: type 2 Diabetes mellitus exterminator helper termite insulin use: with exterminator helper termite use Diabetes mellitus complication status: with hyperglycemia Qualified Code(s): E11.65 - Type 2 diabetes mellitus with hyperglycemia; Z79.4 - exterminator helper termite (current) use of insulin Code(s): E11.9 - Type 2 diabetes mellitus without complications (7) 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 right and left leg ulcers. Right foot ulcer (prior surgery). left foot ulcer History of Wound: This 65-year-old male with multiple comorbidities was seen today for bilateral foot ulcer. His left foot ulcer onset was 12-07-2019. He is previously known to in and had a left transmetatarsal amputation performed previously. He also had a 5th ray resection performed on his right foot and he has residual ulcer at that site. He also has ulcers in a clustered manner to his right and left legs. He denies diarrhea,fever, chill, nausea, vomiting. He completed hyperbaric oxygen therapy sessions. He denies redness or odor. He denies calf pain. He continues to struggle with edema management, smoking cessation, nutrition, and maintaining reduced weightbearing activity. He is ready to proceed with application of left total contact cast again today. He denies new injuries. He has done well with epi fix applications to the right foot so far. He is really struggling with ambulation is trying to get approved for an electric wheelchair. The prior order provided to him was rejected. He will try to continue to work with his primary care physician and insurance company on this process. We have also given him numerous resources I reached out to several local facilities. Progress of Wound: Improving bilateral (all). Healed right medial lower leg at the ankle. Healed proximal left leg Subjective: Patient seen and examined resting comfortably. Patient denies any new pedal complaints. Patient denies any nausea, fever, chills, chest pain, shortness of breath, cough, streaking, purulence, vomiting. - Physical Exam Vital Signs Temp Pulse Resp BP 96.5 F L 78 18 158/79 H 12/19/20 10:37 12/19/20 10:37 12/19/20 10:37 12/19/20 10:37 General: Alert, Oriented x3 HEENT: Atraumatic Abdomen: Obese Extremities: No clubbing, No cyanosis, Capillary Refill Less than 3 Seconds, No Calf Tenderness, Diminished Peripheral Pulses, Edema Skin: Ulcer/ Wound - Left plantar forefoot, right lateral foot leg cluster. No malodor, erythema, purulence, probing to bone, streaking, fluctuation, crepitus, or other signs of infection. Skin is atrophic and hairless. Granular base. Noted callus buildup to left periwound ulcer and amputation site, Incision - right 5th ray resection amputation site is noted to have partially dehisced and has been being treated as a wound Wound Measurements and Assessment WC - Nurse 1 - General Ulcer Measurement Start: 11/22/20 13:00 Freq: Status: Active Protocol: Activity Type Activity Date Activity User E-Sign Co-Sign Detail Recorded Client Recorded Date Recorded By Document 12/19/20 10:37 BMF [id number] 12/19/20 10:53 BMF 12/19/20 10:37 Wound Center Nurse 1 [Ulcer Assessment] #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 -Combined with other wound No -Current Size (cm) - Length 22.3 -Current Size (cm) - Width 14.3 -Current Size (cm) - Depth 0.2 -Total Square Cm 318.89 -Photo Taken No -Epithelialization None Present -Tunneling No -Undermining/Tunneling No -Circular Undermining No -Exudate Amt Small -Exudate Type Serosanguineous -Wound Margin Distinct, Outline Attached -Granulation Amt Medium (34-66%) -Granulation Quality Red -Slough/Fibrin Yes -Necrosis Amt Medium (34-66%) -Necrotic Tissue Type Eschar -Texture (Maria M-wound Skin Appearance) Assessed, Scarring -Moisture (Maria M-wound Skin Appearance Assessed ) -Color (Maria M-wound Skin Appearance) Assessed, Erythema -Temperature (Maria M-wound Skin No Abnormality Appearance) (Pt Warm) -Tenderness on Palpation (Maria M-wound No Skin Appearance) -Ulcer Cleansing soapy water -Foul Odor after Cleansing No -Anesthetic Used 4% Lidocaine Solution #15 right lateral plantar -Combined with other wound No -Current Size (cm) - Length 0.1 -Current Size (cm) - Width 0.1 -Current Size (cm) - Depth 0.1 -Total Square Cm 0.01 -Epithelialization Large 67-100% -Tunneling No -Undermining/Tunneling No -Circular Undermining No -Exudate Amt None Present -Texture (Maria M-wound Skin Appearance) Assessed -Moisture (Maria M-wound Skin Appearance Assessed,Dry/ ) Scaly -Color (Maria M-wound Skin Appearance) Assessed -Temperature (Maria M-wound Skin No Abnormality Appearance) (Pt Warm) -Tenderness on Palpation (Maria M-wound No Skin Appearance) -Ulcer Cleansing soapy water -Foul Odor after Cleansing No -Anesthetic Used 4% Lidocaine Solution #13 LEFT MEDIAL PLANTAR -Combined with other wound No -Current Size (cm) - Length 2.4 -Current Size (cm) - Width 2.7 -Current Size (cm) - Depth 0.4 -Total Square Cm 6.48 -Photo Taken No -Epithelialization None Present -Tunneling No -Undermining/Tunneling No -Circular Undermining No -Exudate Amt Large -Exudate Type Serosanguineous -Wound Margin Distinct, Outline Attached -Granulation Amt Large (67-100%) -Granulation Quality [place] -Slough/Fibrin Yes -Necrosis Amt Small (1-33%) -Necrotic Tissue Type Adherent Slough -Texture (Maria M-wound Skin Appearance) Assessed,Callus ,Scarring -Moisture (Maria M-wound Skin Appearance Assessed,Dry/ ) Scaly -Color (Maria M-wound Skin Appearance) Assessed -Temperature (Marai M-wound Skin No Abnormality Appearance) (Pt Warm) -Tenderness on Palpation (Maria M-wound No Skin Appearance) -Ulcer Cleansing soapy water -Foul Odor after Cleansing No -Anesthetic Used 4% Lidocaine Solution [Edema Assessment] -Lower Limb Edema Present Yes -Right Calf (cm) 46.9 -Right Ankle (cm) 25.6 WC - Nurse 2 - General Ulcer CM Notes Start: 11/22/20 13:00 Freq: Status: Active Protocol: Activity Type Activity Date Activity User E-Sign Co-Sign Detail Recorded Client Recorded Date Recorded By Document 12/19/20 11:17 [id number] [id number] 12/19/20 11:29 CASSY 12/19/20 11:17 Wound Center Nurse 2 [Procedure/Treatment] #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 -Time 11:17 -Correct Patient Yes -Correct Side, Site, Position Yes -Correct Procedure Yes -Procedure Performed Yes -Type of Procedure Debridement -Clinical Debridement Subcutaneous -Tissue Removed Subcutaneous -Post Debridement (cm) - Length 9.5 -Post Debridement (cm) - Width 1 -Post Debridement (cm) - Depth 0.1 -Total Square (Post) (cm) 9.5 -Area of Debridement (cm) - Length 9.5 -Area of Debridement (cm) - Width 1 -Total Square (Area) (cm) 9.5 -Tunneling No -Undermining/Tunneling No -Circular Undermining No -Wound/Ulcer Outcome Not Healed -Ulcer Cleansing Rinsed/ Irrigated with Saline -Foul Odor after Cleansing No -Bioengineered Tissue No -Bleeding Controlled with Pressure -Offloading No -Treatment Response Procedure Tolerated Well -Debridement - Subq, 1st 20sq cm Yes #15 right lateral plantar -Time 11:18 -Correct Patient Yes -Correct Side, Site, Position Yes -Correct Procedure Yes -Procedure Performed Yes -Type of Procedure Debridement -Clinical Debridement Subcutaneous -Tissue Removed Subcutaneous -Post Debridement (cm) - Length 0.6 -Post Debridement (cm) - Width 0.4 -Post Debridement (cm) - Depth 0.2 -Total Square (Post) (cm) 0.24 -Area of Debridement (cm) - Length 0.6 -Area of Debridement (cm) - Width 0.4 -Total Square (Area) (cm) 0.24 -Tunneling No -Undermining/Tunneling No -Circular Undermining No -Wound/Ulcer Outcome Not Healed -Ulcer Cleansing Rinsed/ Irrigated with Saline -Foul Odor after Cleansing No -Bioengineered Tissue Yes -Type of Bioengineered Tissue Epifix 18mm Disc -Expiration Date 07/23/25 -Product Lot Number [id number] -Percent Used 100 -Lot number of Saline Used [id number] -Bleeding Controlled with Pressure -Offloading No -Treatment Response Procedure Tolerated Well -Debridement - Subq, 1st 20sq cm No -Apply Skin Sub - 1st 25 sq cm - Feet 1 -Epifix 18mm Disc 3 Query Text:18mm = 3 #13 LEFT MEDIAL PLANTAR -Time 11:18 -Correct Patient Yes -Correct Side, Site, Position Yes -Correct Procedure Yes -Procedure Performed Yes -Type of Procedure Debridement -Clinical Debridement Subcutaneous -Tissue Removed Subcutaneous -Post Debridement (cm) - Length 2.6 -Post Debridement (cm) - Width 2.7 -Post Debridement (cm) - Depth 0.4 -Total Square (Post) (cm) 7.02 -Area of Debridement (cm) - Length 2.6 -Area of Debridement (cm) - Width 2.7 -Total Square (Area) (cm) 7.02 -Tunneling No -Undermining/Tunneling No -Circular Undermining No -Wound/Ulcer Outcome Not Healed -Ulcer Cleansing Rinsed/ Irrigated with Saline -Foul Odor after Cleansing No -Bioengineered Tissue No -Bleeding Controlled with Pressure -Offloading Yes -Type of Offloading Total Contact Cast (TCC) - Left ($) -Treatment Response Procedure Tolerated Well -Debridement - Subq, 1st 20sq cm No [See Physician Procedure note for Specifics] Pain Scale: 0-10 Numeric [Pain] -Is Patient Pain Free? Yes WC - Nurse 3 - General Ulcer D/C NN Start: 11/22/20 13:00 Freq: Status: Active Protocol: Activity Type Activity Date Activity User E-Sign Co-Sign Detail Recorded Client Recorded Date Recorded By Document 12/19/20 11:46 [facility] [id number] 12/19/20 11:47 [facility] 12/19/20 11:46 Wound Care Nurse 3 [Wound Dressing] #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 -Ulcer Cleansing Rinsed/ Irrigated with Saline -Foul Odor after Cleansing No -Primary Dressing Applied NonAdherent Contact Layer, Other -Other Dressing hydrogel -Primary Dressing Covered/Secured Dry Gauze & with Roll Gauze, Secured with Tape,Other -Other Covering abd #15 right lateral plantar -Other Dressing epifix -Primary Dressing Covered/Secured Dry Gauze & with Roll Gauze, Secured with Tape,Other -Other Covering abd #13 LEFT MEDIAL PLANTAR -Other Dressing epifix -Other Covering tcc undercast per d jessica asphalt smoother [Compression Applied] Left -Other tcc under cast Right -Tubular Bandage Single Layer -Size of Tubigrip Used Size E -Size E ($) 1 [Post Procedure Tolerated] -Treatment Response Procedure Tolerated Well Pain Scale: 0-10 Numeric [Pain] -Is Patient Pain Free? Yes WC - Visit Discharge [Visit Discharge Information] -Discharge Condition Stable -Ambulatory Status Ambulatory -Transportation Private Auto [Facility Notification] -Facility Type Home Health Musculoskeletal: No Tenderness to Palpation of Joints or Extremities, Muscle Wasting - Unsteady gait, - - Left TMA and right fifth ray resection Neurological: - - Decrease in epicritic sensation Psych/Mental Status: Normal Affect, Appropriate Debridement Note Post-Debridement Measurements/Treatment WC - Nurse 2 - General Ulcer CM Notes Start: 11/22/20 13:00 Freq: Status: Active Protocol: Activity Type Activity Date Activity User E-Sign Co-Sign Detail Recorded Client Recorded Date Recorded By Document 11/22/20 13:21 [id number] 11/22/20 13:39 Document 11/29/20 13:38 [id number] 11/29/20 13:53 Document 12/06/20 16:05 [id number] 12/06/20 16:12 Document 12/13/20 15:24 [id number] 12/13/20 16:38 Document 12/19/20 11:17 [id number] 12/19/20 11:29 11/22/20 11/29/20 12/06/20 13:21 13:38 16:05 Wound Center Nurse 2 17-Left upper leg -Time 13:41 13:39 16:05 -Correct Patient Yes Yes Yes -Correct Side, Site, Position Yes Yes Yes -Correct Procedure Yes Yes Yes -Procedure Performed Yes Yes Yes -Type of Procedure Debridement Debridement Debridement -Clinical Debridement Subcutaneous Subcutaneous Subcutaneous -Tissue Removed Subcutaneous Subcutaneous Subcutaneous -Post Debridement (cm) - Length 3.8 0.5 2.5 -Post Debridement (cm) - Width 5.7 0.4 2 -Post Debridement (cm) - Depth 0.2 0.1 0.1 -Total Square (Post) (cm) 21.66 0.20 5.0 -Area of Debridement (cm) - Length 3.8 0.5 2.5 -Area of Debridement (cm) - Width 5.7 0.4 2 -Total Square (Area) (cm) 21.66 0.20 5.0 -Tunneling No No No -Undermining/Tunneling No No No -Circular Undermining No No No -Wound/Ulcer Outcome Not Healed Not Healed Not Healed -Ulcer Cleansing Rinsed/ Rinsed/ Rinsed/ Irrigated with Irrigated with Irrigated with Saline Saline Saline -Foul Odor after Cleansing No No No -Bioengineered Tissue No No No -Bleeding Controlled with Pressure Pressure Pressure -Offloading No No No -Type of Offloading Total Contact Cast (TCC) - Left ($) -Treatment Response Procedure Procedure Procedure Tolerated Well Tolerated Well Tolerated Well -Debridement - Subq, 1st 20sq cm No Yes Yes -Debridement, SubQ, ea addt'l 20sq cm 1 or part thereof #16 right medial foot cluster -Time 13:21 13:38 16:06 -Correct Patient Yes Yes Yes -Correct Side, Site, Position Yes Yes Yes -Correct Procedure Yes Yes Yes -Procedure Performed Yes Yes Yes -Type of Procedure Debridement Debridement Debridement -Clinical Debridement Subcutaneous Subcutaneous Subcutaneous -Tissue Removed Subcutaneous Subcutaneous Subcutaneous -Post Debridement (cm) - Length 0.9 3.3 0.8 -Post Debridement (cm) - Width 1 1.6 0.4 -Post Debridement (cm) - Depth 0.1 0.2 0.1 -Total Square (Post) (cm) 0.9 5.28 0.32 -Area of Debridement (cm) - Length 0.9 3.3 0.8 -Area of Debridement (cm) - Width 1 1.6 0.4 -Total Square (Area) (cm) 0.9 5.28 0.32 -Tunneling No No No -Undermining/Tunneling No No No -Circular Undermining No No No -Wound/Ulcer Outcome Not Healed Not Healed Not Healed -Ulcer Cleansing Rinsed/ Rinsed/ Rinsed/ Irrigated with Irrigated with Irrigated with Saline Saline Saline -Foul Odor after Cleansing No No No -Bioengineered Tissue No No Yes -Type of Bioengineered Tissue Epifix 18mm Disc -Expiration Date 08/22/25 -Product Lot Number [id number] -Percent Used 100 -Lot number of Saline Used [id number] -Bleeding Controlled with Pressure Pressure Pressure -Offloading No Yes Yes -Type of Offloading Surgical Shoe Surgical Shoe -Treatment Response Procedure Procedure Procedure Tolerated Well Tolerated Well Tolerated Well -Debridement - Subq, 1st 20sq cm Yes No No -Apply Skin Sub - 1st 25 sq cm - Feet 0 -Epifix 18mm Disc 0 Query Text:18mm = 3 #14 Left Ant Mccloud -Time 13:24 13:41 16:07 -Correct Patient Yes Yes Yes -Correct Side, Site, Position Yes Yes Yes -Correct Procedure Yes Yes Yes -Procedure Performed Yes Yes Yes -Type of Procedure Debridement Debridement Debridement -Clinical Debridement Subcutaneous Subcutaneous Subcutaneous -Tissue Removed Subcutaneous Subcutaneous Subcutaneous -Post Debridement (cm) - Length 0.2 0.1 0.1 -Post Debridement (cm) - Width 0.2 0.1 0.1 -Post Debridement (cm) - Depth 0.2 0.1 0.1 -Total Square (Post) (cm) 0.04 0.01 0.01 -Area of Debridement (cm) - Length 0.2 0.1 0.1 -Area of Debridement (cm) - Width 0.2 0.1 0.1 -Total Square (Area) (cm) 0.04 0.01 0.01 -Tunneling No No No -Undermining/Tunneling No No No -Circular Undermining No No No -Wound/Ulcer Outcome Not Healed Not Healed Not Healed -Ulcer Cleansing Rinsed/ Rinsed/ Rinsed/ Irrigated with Irrigated with Irrigated with Saline Saline Saline -Foul Odor after Cleansing No No No -Bioengineered Tissue No No No -Bleeding Controlled with Pressure Pressure Pressure -Offloading No No No -Treatment Response Procedure Procedure Procedure Tolerated Well Tolerated Well Tolerated Well -Debridement - Subq, 1st 20sq cm No No No #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 -Time 13:24 13:42 16:08 -Correct Patient Yes Yes Yes -Correct Side, Site, Position Yes Yes Yes -Correct Procedure Yes Yes Yes -Procedure Performed Yes Yes Yes -Type of Procedure Debridement Debridement Debridement -Clinical Debridement Subcutaneous Subcutaneous Subcutaneous -Tissue Removed Subcutaneous Subcutaneous Subcutaneous -Post Debridement (cm) - Length 18.5 4 7 -Post Debridement (cm) - Width 13 3 3 -Post Debridement (cm) - Depth 0.1 0.1 0.1 -Total Square (Post) (cm) 240.5 12 21 -Area of Debridement (cm) - Length 18.5 4 7 -Area of Debridement (cm) - Width 13 3 3 -Total Square (Area) (cm) 240.5 12 21 -Tunneling No No No -Undermining/Tunneling No No No -Circular Undermining No No No -Wound/Ulcer Outcome Not Healed Not Healed Not Healed -Ulcer Cleansing Rinsed/ Rinsed/ Rinsed/ Irrigated with Irrigated with Irrigated with Saline Saline Saline -Foul Odor after Cleansing No No No -Bioengineered Tissue No No No -Bleeding Controlled with Pressure Pressure Pressure -Other 2% debrided. -Offloading Yes No No -Type of Offloading Surgical Shoe -Treatment Response Procedure Procedure Procedure Tolerated Well Tolerated Well Tolerated Well -Debridement - Subq, 1st 20sq cm No No No #15 right lateral plantar -Time 13:24 13:46 16:10 -Correct Patient Yes Yes Yes -Correct Side, Site, Position Yes Yes Yes -Correct Procedure Yes Yes Yes -Procedure Performed Yes Yes Yes -Type of Procedure Debridement Debridement Debridement -Clinical Debridement Subcutaneous Subcutaneous Subcutaneous -Tissue Removed Subcutaneous Subcutaneous Subcutaneous -Post Debridement (cm) - Length 1.8 0.6 1.0 -Post Debridement (cm) - Width 0.6 0.3 0.3 -Post Debridement (cm) - Depth 0.3 0.2 0.2 -Total Square (Post) (cm) 1.08 0.18 0.30 -Area of Debridement (cm) - Length 1.8 0.6 1.0 -Area of Debridement (cm) - Width 0.6 0.3 0.3 -Total Square (Area) (cm) 1.08 0.18 0.30 -Tunneling No No No -Undermining/Tunneling No No No -Circular Undermining No No No -Wound/Ulcer Outcome Not Healed Not Healed Not Healed -Ulcer Cleansing Rinsed/ Rinsed/ Rinsed/ Irrigated with Irrigated with Irrigated with Saline Saline Saline -Foul Odor after Cleansing No No No -Bioengineered Tissue Yes Yes Yes -Type of Bioengineered Tissue Epifix 18mm Epifix 18mm Epifix 18mm Disc Disc Disc -Expiration Date 07/23/25 07/23/25 08/22/25 -Product Lot Number [id number] -Percent Used 100 100 100 -Lot number of Saline Used [id number] -Bleeding Controlled with Pressure Pressure Pressure -Offloading Yes No No -Type of Offloading Surgical Shoe -Treatment Response Procedure Procedure Procedure Tolerated Well Tolerated Well Tolerated Well -Debridement - Subq, 1st 20sq cm No No No -Apply Skin Sub - 1st 25 sq cm - Feet 1 1 1 -Epifix 18mm Disc 3 3 3 Query Text:18mm = 3 #13 LEFT MEDIAL PLANTAR -Time 13:25 13:47 16:11 -Correct Patient Yes Yes Yes -Correct Side, Site, Position Yes Yes Yes -Correct Procedure Yes Yes Yes -Procedure Performed Yes Yes Yes -Type of Procedure Debridement Debridement Debridement -Clinical Debridement Subcutaneous Subcutaneous Subcutaneous -Tissue Removed Subcutaneous Subcutaneous Subcutaneous -Post Debridement (cm) - Length 2.6 2.5 2.5 -Post Debridement (cm) - Width 3 2 2.9 -Post Debridement (cm) - Depth 0.3 0.2 0.3 -Total Square (Post) (cm) 7.8 5.0 7.25 -Area of Debridement (cm) - Length 2.6 2.5 2.5 -Area of Debridement (cm) - Width 3 2 2.9 -Total Square (Area) (cm) 7.8 5.0 7.25 -Tunneling No No No -Undermining/Tunneling No No No -Circular Undermining No No No -Wound/Ulcer Outcome Not Healed Not Healed Not Healed -Ulcer Cleansing Rinsed/ Rinsed/ Rinsed/ Irrigated with Irrigated with Irrigated with Saline Saline Saline -Foul Odor after Cleansing No No No -Bioengineered Tissue No No No -Bleeding Controlled with Pressure Pressure Pressure -Offloading Yes Yes Yes -Type of Offloading Surgical Shoe Total Contact Total Contact Cast (TCC) - Cast (TCC) - Left ($) Left ($) -Treatment Response Procedure Procedure Procedure Tolerated Well Tolerated Well Tolerated Well -Debridement - Subq, 1st 20sq cm No No No Pain Scale: 0-10 Numeric Is Patient Pain Free? Yes Yes Yes 12/13/20 12/19/20 15:24 11:17 Wound Center Nurse 2 17-Left upper leg -Time -Correct Patient No -Correct Side, Site, Position No -Correct Procedure No -Procedure Performed No -Type of Procedure -Clinical Debridement -Tissue Removed -Post Debridement (cm) - Length 0 -Post Debridement (cm) - Width 0 -Post Debridement (cm) - Depth 0 -Total Square (Post) (cm) 0 -Area of Debridement (cm) - Length 0 -Area of Debridement (cm) - Width 0 -Total Square (Area) (cm) 0 -Tunneling -Undermining/Tunneling -Circular Undermining -Wound/Ulcer Outcome Healed- Epithelialized -Ulcer Cleansing -Foul Odor after Cleansing -Bioengineered Tissue -Bleeding Controlled with -Offloading -Type of Offloading -Treatment Response -Debridement - Subq, 1st 20sq cm -Debridement, SubQ, ea addt'l 20sq cm or part thereof #16 right medial foot cluster -Time -Correct Patient No -Correct Side, Site, Position No -Correct Procedure No -Procedure Performed No -Type of Procedure -Clinical Debridement -Tissue Removed -Post Debridement (cm) - Length 0 -Post Debridement (cm) - Width 0 -Post Debridement (cm) - Depth 0 -Total Square (Post) (cm) 0 -Area of Debridement (cm) - Length 0 -Area of Debridement (cm) - Width 0 -Total Square (Area) (cm) 0 -Tunneling -Undermining/Tunneling -Circular Undermining -Wound/Ulcer Outcome Healed- Epithelialized -Ulcer Cleansing -Foul Odor after Cleansing -Bioengineered Tissue -Type of Bioengineered Tissue -Expiration Date -Product Lot Number -Percent Used -Lot number of Saline Used -Bleeding Controlled with -Offloading -Type of Offloading -Treatment Response -Debridement - Subq, 1st 20sq cm -Apply Skin Sub - 1st 25 sq cm - Feet -Epifix 18mm Disc Query Text:18mm = 3 #14 Left Ant Mccloud -Time -Correct Patient -Correct Side, Site, Position -Correct Procedure -Procedure Performed -Type of Procedure -Clinical Debridement -Tissue Removed -Post Debridement (cm) - Length -Post Debridement (cm) - Width -Post Debridement (cm) - Depth -Total Square (Post) (cm) -Area of Debridement (cm) - Length -Area of Debridement (cm) - Width -Total Square (Area) (cm) -Tunneling -Undermining/Tunneling -Circular Undermining -Wound/Ulcer Outcome -Ulcer Cleansing -Foul Odor after Cleansing -Bioengineered Tissue -Bleeding Controlled with -Offloading -Treatment Response -Debridement - Subq, 1st 20sq cm #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 -Time 16:35 11:17 -Correct Patient Yes Yes -Correct Side, Site, Position Yes Yes -Correct Procedure Yes Yes -Procedure Performed Yes Yes -Type of Procedure Debridement Debridement -Clinical Debridement Subcutaneous Subcutaneous -Tissue Removed Subcutaneous Subcutaneous -Post Debridement (cm) - Length 9.8 9.5 -Post Debridement (cm) - Width 1 1 -Post Debridement (cm) - Depth 0.1 0.1 -Total Square (Post) (cm) 9.8 9.5 -Area of Debridement (cm) - Length 9.8 9.5 -Area of Debridement (cm) - Width 1 1 -Total Square (Area) (cm) 9.8 9.5 -Tunneling No No -Undermining/Tunneling No No -Circular Undermining No No -Wound/Ulcer Outcome Not Healed Not Healed -Ulcer Cleansing Rinsed/ Rinsed/ Irrigated with Irrigated with Saline Saline -Foul Odor after Cleansing No No -Bioengineered Tissue No No -Bleeding Controlled with Pressure Pressure -Other -Offloading No No -Type of Offloading -Treatment Response Procedure Procedure Tolerated Well Tolerated Well -Debridement - Subq, 1st 20sq cm Yes Yes #15 right lateral plantar -Time 16:36 11:18 -Correct Patient Yes Yes -Correct Side, Site, Position Yes Yes -Correct Procedure Yes Yes -Procedure Performed Yes Yes -Type of Procedure Debridement Debridement -Clinical Debridement Subcutaneous Subcutaneous -Tissue Removed Subcutaneous Subcutaneous -Post Debridement (cm) - Length 1.3 0.6 -Post Debridement (cm) - Width 0.2 0.4 -Post Debridement (cm) - Depth 0.2 0.2 -Total Square (Post) (cm) 0.26 0.24 -Area of Debridement (cm) - Length 1.3 0.6 -Area of Debridement (cm) - Width 0.2 0.4 -Total Square (Area) (cm) 0.26 0.24 -Tunneling No No -Undermining/Tunneling No No -Circular Undermining No No -Wound/Ulcer Outcome Not Healed Not Healed -Ulcer Cleansing Rinsed/ Rinsed/ Irrigated with Irrigated with Saline Saline -Foul Odor after Cleansing No No -Bioengineered Tissue Yes Yes -Type of Bioengineered Tissue Epifix 18mm Epifix 18mm Disc Disc -Expiration Date 08/22/25 07/23/25 -Product Lot Number [id number] -Percent Used 100 100 -Lot number of Saline Used [id number] -Bleeding Controlled with Pressure Pressure -Offloading Yes No -Type of Offloading Surgical Shoe -Treatment Response Procedure Procedure Tolerated Well Tolerated Well -Debridement - Subq, 1st 20sq cm No No -Apply Skin Sub - 1st 25 sq cm - Feet 1 1 -Epifix 18mm Disc 3 3 Query Text:18mm = 3 #13 LEFT MEDIAL PLANTAR -Time 16:37 11:18 -Correct Patient Yes Yes -Correct Side, Site, Position Yes Yes -Correct Procedure Yes Yes -Procedure Performed Yes Yes -Type of Procedure Debridement Debridement -Clinical Debridement Subcutaneous Subcutaneous -Tissue Removed Subcutaneous Subcutaneous -Post Debridement (cm) - Length 2.5 2.6 -Post Debridement (cm) - Width 2.8 2.7 -Post Debridement (cm) - Depth 0.4 0.4 -Total Square (Post) (cm) 7.00 7.02 -Area of Debridement (cm) - Length 2.5 2.6 -Area of Debridement (cm) - Width 2.8 2.7 -Total Square (Area) (cm) 7.00 7.02 -Tunneling No No -Undermining/Tunneling No No -Circular Undermining No No -Wound/Ulcer Outcome Not Healed Not Healed -Ulcer Cleansing Rinsed/ Rinsed/ Irrigated with Irrigated with Saline Saline -Foul Odor after Cleansing No No -Bioengineered Tissue No No -Bleeding Controlled with Pressure Pressure -Offloading Yes Yes -Type of Offloading Total Contact Total Contact Cast (TCC) - Cast (TCC) - Left ($) Left ($) -Treatment Response Procedure Procedure Tolerated Well Tolerated Well -Debridement - Subq, 1st 20sq cm No No Pain Scale: 0-10 Numeric Is Patient Pain Free? Yes Yes WC - Nurse 3 - General Ulcer D/C NN Start: 11/22/20 13:00 Freq: Status: Active Protocol: Activity Type Activity Date Activity User E-Sign Co-Sign Detail Recorded Client Recorded Date Recorded By Document 11/22/20 13:45 RB [id number] 11/22/20 13:48 RB Document 11/29/20 13:59 BM [id number] 11/29/20 14:03 BMF Document 12/06/20 15:17 RB [id number] 12/06/20 15:20 RB Document 12/13/20 15:43 BMF [id number] 12/13/20 15:46 BMF Document 12/19/20 11:46 BMF [id number] 12/19/20 11:47 BMF 11/22/20 11/29/20 12/06/20 13:45 13:59 15:17 Wound Care Nurse 3 17-Left upper leg -Ulcer Cleansing Rinsed/ Rinsed/ Wound Cleanser Irrigated with Irrigated with Saline Saline -Foul Odor after Cleansing No -Primary Dressing Applied Aquacel AG 2x2 Aquacel AG 4x4 -Other Dressing hydrogel -Primary Dressing Covered/Secured with Dry Gauze,Dry Dry Gauze & Dry Gauze, Gauze & Roll Roll Gauze, Secured with Gauze,Secured Secured with Tape with Tape Tape -Other Covering drsg per riccardo mcdowell rn -Aquacel AG 4x4 1 -Aquacel AG 2x2 1 #16 right medial foot cluster -Ulcer Cleansing Rinsed/ Rinsed/ Irrigated with Irrigated with Saline Saline -Foul Odor after Cleansing No -Other Dressing hydrogel epifix per md -Primary Dressing Covered/Secured with Dry Gauze,Dry Dry Gauze & Dry Gauze,Dry Gauze & Roll Roll Gauze, Gauze & Roll Gauze,Secured Secured with Gauze,Secured with Tape Tape with Tape -Other Covering drsgs per riccardo mcdowell rn, tcc undercast #14 Left Ant Mccloud -Ulcer Cleansing Rinsed/ Rinsed/ Irrigated with Irrigated with Saline Saline -Foul Odor after Cleansing No -Primary Dressing Applied Aquacel AG 4x4 Aquacel AG 2x2 -Other Dressing aquacel ag -Primary Dressing Covered/Secured with Dry Gauze,Dry Dry Gauze & Dry Gauze Gauze & Roll Roll Gauze, Gauze,Secured Secured with with Tape Tape -Other Covering drsgs per r july rn -Aquacel AG 4x4 1 -Aquacel AG 2x2 0 #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 -Ulcer Cleansing Rinsed/ Wound Cleanser Irrigated with Saline -Foul Odor after Cleansing No -Primary Dressing Applied Other -Other Dressing hydrogel, drsgs hydrogel per r july rn -Primary Dressing Covered/Secured with Dry Gauze,Dry Dry Gauze & Dry Gauze,Dry Gauze & Roll Roll Gauze, Gauze & Roll Gauze,Secured Secured with Gauze,Secured with Tape Tape with Tape -Other Covering tcc undercast #15 right lateral plantar -Other Dressing epifix per md -Primary Dressing Covered/Secured with Dry Gauze,Dry Dry Gauze & Dry Gauze,Dry Gauze & Roll Roll Gauze, Gauze & Roll Gauze,Secured Secured with Gauze,Secured with Tape Tape with Tape -Other Covering tcc under cast #13 LEFT MEDIAL PLANTAR -Ulcer Cleansing Rinsed/ Wound Cleanser Irrigated with Saline -Foul Odor after Cleansing No -Primary Dressing Applied Aquacel AG 2x2 -Other Dressing silver aquacel ag -Primary Dressing Covered/Secured with Dry Gauze Dry Gauze & Roll Gauze, Secured with Tape -Other Covering primary of TCC drsg s per r primary layer applied july rn of TCC -Aquacel AG 2x2 0 Left -Other Right -Tubular Bandage Single Layer -Size of Tubigrip Used Size F -Size E ($) -Size F ($) 1 -Other guerrero Treatment Response Procedure Procedure Tolerated Well Tolerated Well Pain Scale: 0-10 Numeric Is Patient Pain Free? Yes Yes Teaching: Wound Center Compression Wraps & Stockings -Person Taught Patient -Teaching Method Discussion, Demonstration -Response to teaching Verbalize understanding WC - Visit Discharge Discharge Condition Stable Stable Ambulatory Status Ambulatory,Cane Ambulatory Transportation Private Auto Private Auto Medication Reconcilliation completed & No provided to patient/care provider Clinical Summary of Care Provided Yes Facility Type Home Health 12/13/20 12/19/20 15:43 11:46 Wound Care Nurse 3 17-Left upper leg -Ulcer Cleansing -Foul Odor after Cleansing -Primary Dressing Applied -Other Dressing -Primary Dressing Covered/Secured with -Other Covering -Aquacel AG 4x4 -Aquacel AG 2x2 #16 right medial foot cluster -Ulcer Cleansing -Foul Odor after Cleansing -Other Dressing -Primary Dressing Covered/Secured with -Other Covering #14 Left Ant Mccloud -Ulcer Cleansing -Foul Odor after Cleansing -Primary Dressing Applied -Other Dressing -Primary Dressing Covered/Secured with -Other Covering -Aquacel AG 4x4 -Aquacel AG 2x2 #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 -Ulcer Cleansing Rinsed/ Rinsed/ Irrigated with Irrigated with Saline Saline -Foul Odor after Cleansing No No -Primary Dressing Applied Other NonAdherent Contact Layer, Other -Other Dressing hydrogel hydrogel -Primary Dressing Covered/Secured with Dry Gauze & Dry Gauze & Roll Gauze, Roll Gauze, Secured with Secured with Tape Tape,Other -Other Covering drsg per riccardo mcdowell rn #15 right lateral plantar -Other Dressing epifix epifix -Primary Dressing Covered/Secured with Dry Gauze & Dry Gauze & Roll Gauze, Roll Gauze, Secured with Secured with Tape Tape,Other -Other Covering drsg per riccardo mcdowell rn #13 LEFT MEDIAL PLANTAR -Ulcer Cleansing -Foul Odor after Cleansing -Primary Dressing Applied -Other Dressing epifix epifix -Primary Dressing Covered/Secured with Dry Gauze & Roll Gauze, Secured with Tape,Other -Other Covering tcc undercast; tcc undercast drsg per r per d jessica mcdowell rn -Aquacel AG 2x2 Left -Other tcc undercast tcc under cast per riccardo mcdowell rn Right -Tubular Bandage Single Layer Single Layer -Size of Tubigrip Used Size E Size E -Size E ($) 1 1 -Size F ($) -Other Treatment Response Procedure Procedure Tolerated Well Tolerated Well Pain Scale: 0-10 Numeric Is Patient Pain Free? Yes Yes Teaching: Wound Center Compression Wraps & Stockings -Person Taught -Teaching Method -Response to teaching WC - Visit Discharge Discharge Condition Stable Stable Ambulatory Status Ambulatory,Cane Ambulatory Transportation Private Auto Private Auto Medication Reconcilliation completed & provided to patient/care provider Clinical Summary of Care Provided Facility Type Home Health Home Health Wound debrided: Lateral foot Laterality: Right Wound Grade/Stage: [place] 1 Type of Debridement: Excisional debridement Anesthesia Used: 4% Lidocaine Solution Depth: in the subcutaneous layer Percentage of wound debrided: 100 Instrument Used: 3mm curette Tissue Removed: Tissue removed includes fibrous, devitalized, biofilm, and slough tissue Severity: Fat Layer Exposed Amount of bleeding with debridement: Mild Bleeding Controlled with: Pressure Patient tolerated procedure well - Additional Wound Wound debrided: Leg cluster Laterality: Right Wound Grade/Stage: [place] 1 Type of Debridement: Excisional debridement Anesthesia Used: 4% Lidocaine Solution Depth: in the subcutaneous layer Percentage of wound debrided: 10 Instrument Used: 3mm curette Tissue Removed: Tissue removed includes fibrous, devitalized, biofilm, and slough tissue Severity: Fat Layer Exposed Amount of bleeding with debridement: Mild Bleeding Controlled with: Pressure Patient tolerated procedure: Patient tolerated procedure well - Additional Wound Wound debrided: Plantar forefoot Laterality: Left Wound Grade/Stage: [place] 3 Type of Debridement: Excisional debridement Anesthesia Used: 4% Lidocaine Solution Percentage of wound debrided: 100 Instrument Used: 3mm curette, #15 blade Tissue Removed: Tissue removed includes fibrous, devitalized, biofilm, callus,slough tissue Severity: Fat Layer Exposed Amount of bleeding with debridement: Mild Bleeding Controlled with: Pressure Patient tolerated procedure: Patient tolerated procedure well Assessment/Plan Active Problems (Last Reviewed 10/31/20 @ 16:[address] 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) Ulcer of right foot with fat layer exposed (Chronic) Ulcer of left lower extremity with fat layer exposed (Chronic) Localized edema (Chronic) Non-pressure chronic ulcer of unspecified part of left lower leg with fat layer exposed (Chronic) Onycholysis (Acute) Difficulty walking (Chronic) Non-pressure chronic ulcer of right calf with fat layer exposed (Chronic) Non-pressure chronic ulcer of other part of left foot with fat layer exposed (Chronic) Non-pressure chronic ulcer of other part of right foot with fat layer exposed (Chronic) Peripheral vascular disease (Chronic) Type 2 diabetes mellitus with diabetic polyneuropathy (Chronic) 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) Tobacco abuse (Chronic) Chronic ulcer of left foot with fat layer exposed (Chronic) Assessment: Left plantar medial foot ulcer, [place] Grade 3 - stable. Right foot ulcer w/ fat layer exposed at s/p fifth ray resection site (grade 1, prior 3). Right leg ulcer cluster, grade 1. Right medial ankle cluster, grade 1 - healed. left leg ulcer, grade 1 - healed. Morbid obesity. Diabetes type 2 with complications. Walking difficulty and impairment. Delayed healing Plan: I reviewed and discussed his case. Patient is status post right 5th ray resection secondary to OM. Patient noted to have cracked his total contact cast. Discussed importance of wearing boot with the cast to prevent cracking of the cast. Discussed if cast cracks it can cause new wounds or make existing wounds worse. Subcutaneous excisional debridement was performed as noted in the clinical panel to the left foot, right foot, right leg. 2 sites have healed and are fully epithelialized as noted. To elevate and reduce salt intake. To continue with Tubigrip compression garments. I recommend application of advanced wound healing product to the right foot. Prior authorization was confirmed. The indications, benefits, anticipated application and healing time management were reviewed in detail. Verbal consent was obtained in the procedure for today. Epi fix was applied according to standard protocol and was further secured with a wound veil and Steri-Strips. He tolerated this well. He was advised to keep this dressing of the right foot clean, dry, and intact until follow-up next week. Right leg clusters and left foot had hydrogel applied and were dressed with gauze. Verbal consent was applied for a total contact cast to the left lower extremity. This was applied according to standard protocol in a rectus well padded manner. He tolerated this well. He was advised to keep this clean, dry, intact until follow up next week. I discussed the need for serious offloading for limb salvage purposes. He has tried various shoes and walking boots. He presents with full weightbearing and diabetic shoes again today which is not recommended. He has struggled with the use of such as a walker of a knee roller. An electric wheelchair (extra width) is also an option and at this time I recommend this. This was not approved. I suggested he review this option with his insurance sales representative to see if a different route of approval is more appropriate such as different codes or going through PCP / physical therapist. He started this process and still needs to communicate this with the medical team so we can help him proceed forward. His noninvasive vascular studies were reviewed from which were normal and intervention was previously not recommended. I advised him to follow-up with all of Dr. Bonilla's recommendations to optimize his healing process. He has for help scheduling this because he has not been able to do this. He has recently been seen and intervention is planned for arterial optimization. An updated bilateral duplex was also recommended to help with planning. To continue to work on decreasing glucose levels. He has a history of hyperglycemia. To continue follow-up with primary care physician. To continue to follow-up with nutritional services. To continue to follow-up as advised. He is currently making adjustments with his nutritional habits. He also follows up with records management associate, Dr. Arteaga, who is working with him to reduce his hemoglobin A1c with medication and behavioral changes. Smoking cessation was discussed in detail and he was advised on the healing impairment associated with this. To continue with his smoking cessation program. I also recommend discontinuation of nicotine products for this also contributes to small vessel contraction. I answered all of his questions today. . To return to clinic in 1 week or call sooner if questions, concerns, or progressive worsening. Will follow up with Dr. Claudio for surgical follow-up of his right fifth ray resection. I answered all his questions. Note: [employer] speech recognition garbage collector driver software was used to create portions of this document. Sound-alike and misspelled words, as well as other garbage collector driver errors may be contained in the documentation.
== END 2020-12-20 23:59 ==
LOC: WC 10:30
PROVIDERS: PCP Family Medicine Geriatric Medicine; Referring Provider Podiatrist; Visit Provider Podiatrist
DX: E11.621 Type 2 diabetes mellitus with foot ulcer (principal); E11.42 Type 2 diabetes mellitus with diabetic polyneuropathy; E11.622 Type 2 diabetes mellitus with other skin ulcer; R60.0 Localized edema; L97.812 Non-pressure chronic ulcer of other part of right lower leg with fat layer exposed; L97.512 Non-pressure chronic ulcer of other part of right foot with fat layer exposed; L97.522 Non-pressure chronic ulcer of other part of left foot with fat layer exposed; Z89.432 Acquired absence of left foot; L97.312 Non-pressure chronic ulcer of right ankle with fat layer exposed; E66.01 Morbid (severe) obesity due to excess calories; Z68.41 Body mass index [BMI] 40.0-44.9, adult; L97.822 Non-pressure chronic ulcer of other part of left lower leg with fat layer exposed
CPT/HCPCS: 11042; 11045; 15275; 29445; Q4186

== ENCOUNTER 2021-01-17 09:45 | Outpatient (RCR) | payer MEDICARE, MEDICAID, SELFPAY ==
[2020-12-21 00:30] VITALS: BP 158/79; PULSE 78; RESP 18; TEMP 35.8
[2020-12-27 13:23] VITALS: BP 142/63; PULSE 86; RESP 18; TEMP 36.7; BMI 48.5
--- NOTE | 2020-12-27 15:37 | PCM.WC.PN ---
(1) Diabetic polyneuropathy Status: Chronic Qualifiers: Code(s): E11.42 - Type 2 diabetes mellitus with diabetic polyneuropathy (2) Ulcer of right foot with fat layer exposed Status: Chronic Code(s): L97.512 - Non-pressure chronic ulcer of other part of right foot with fat layer exposed (3) Localized edema Status: Chronic Code(s): R60.0 - Localized edema (4) Difficulty walking Status: Chronic Code(s): R26.2 - Difficulty in walking, not elsewhere classified (5) Non-pressure chronic ulcer of other part of left foot with fat layer exposed Status: Chronic Code(s): L97.522 - Non-pressure chronic ulcer of other part of left foot with fat layer exposed (6) Type 2 diabetes mellitus with diabetic polyneuropathy Status: Chronic Qualifiers: Code(s): E11.42 - Type 2 diabetes mellitus with diabetic polyneuropathy (7) Ulcer of right lower extremity with fat layer exposed Status: Chronic Code(s): L97.912 - Non-pressure chronic ulcer of unspecified part of right lower leg with fat layer exposed (8) Delayed wound healing Status: Chronic Code(s): T14.8XXD - Other injury of unspecified body region, subsequent encounter Type of Wound Date of Service: 12/27/20 Chief Complaint: Diabetic left foot ulceration, [place] Grade 3. right and left leg ulcers. Right foot ulcer (prior surgery). left foot ulcer History of Wound: This 65-year-old male with multiple comorbidities was seen today for bilateral foot ulcer. His left foot ulcer onset was 12-07-2019. He is previously known to me and had a left transmetatarsal amputation performed previously. He also had a 5th ray resection performed on his right foot and he has residual ulcer at that site. He also has ulcers in a clustered manner to his right leg. He denies diarrhea,fever, chill, nausea, vomiting. He completed hyperbaric oxygen therapy sessions. He denies redness or odor. He denies calf pain. He continues to struggle with edema management, smoking cessation, nutrition, and maintaining reduced weightbearing activity. He is ready to proceed with application of left total contact cast again today. He denies new injuries. He has done well with epi fix applications to the right foot so far. Progress of Wound: Improving bilateral (all) - Physical Exam Vital Signs Temp Pulse Resp BP 98.1 F 86 18 142/63 H 12/27/20 13:23 12/27/20 13:23 12/27/20 13:23 12/27/20 13:23 General: Alert, Oriented x3, Cooperative, No apparent distress HEENT: Atraumatic Extremities: No cyanosis, Capillary Refill Less than 3 Seconds, No Calf Tenderness, Diminished Peripheral Pulses, Edema, - - Left transmetatarsal amputation Skin: Ulcer/ Wound - No purulence, erythema, streaking, odor, or infection. Peripheral callus noted to ulcer. Peripheral skin is hairless and atrophic Wound Measurements and Assessment WC - Nurse 1 - General Ulcer Measurement Start: 12/27/20 13:23 Freq: Status: Active Protocol: Activity Type Activity Date Activity User E-Sign Co-Sign Detail Recorded Client Recorded Date Recorded By Document 12/27/20 13:23 RB [id number] 12/27/20 13:33 RB 12/27/20 13:23 Wound Center Nurse 1 [Ulcer Assessment] #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 -Combined with other wound No -Current Size (cm) - Length 11 -Current Size (cm) - Width 5.1 -Current Size (cm) - Depth 0.2 -Total Square Cm 56.1 -Tunneling No -Undermining/Tunneling No -Circular Undermining No -Exudate Amt Medium -Exudate Type Serosanguineous -Wound Margin Distinct, Outline Attached -Granulation Amt Medium (34-66%) -Granulation Quality Red -Slough/Fibrin Yes -Necrosis Amt Medium (34-66%) -Necrotic Tissue Type Adherent Slough -Structure Exposed N/A -Texture (Maria M-wound Skin Appearance) Scarring -Moisture (Maria M-wound Skin Appearance Assessed ) -Color (Maria M-wound Skin Appearance) Assessed -Temperature (Maria M-wound Skin No Abnormality Appearance) (Pt Warm) -Tenderness on Palpation (Maria M-wound No Skin Appearance) -Ulcer Cleansing Wound Cleanser -Foul Odor after Cleansing No -Anesthetic Used 4% Lidocaine Solution #15 right lateral plantar -Combined with other wound No -Current Size (cm) - Length 0.5 -Current Size (cm) - Width 0.2 -Current Size (cm) - Depth 0.2 -Total Square Cm 0.10 -Tunneling No -Undermining/Tunneling No -Exudate Amt Small -Exudate Type Serosanguineous -Wound Margin Thickened -Granulation Amt Medium (34-66%) -Granulation Quality [place] -Slough/Fibrin Yes -Necrosis Amt Medium (34-66%) -Necrotic Tissue Type Adherent Slough -Structure Exposed N/A -Texture (Maria M-wound Skin Appearance) Callus -Moisture (Maria M-wound Skin Appearance Assessed ) -Color (Maria M-wound Skin Appearance) Assessed -Temperature (Maria M-wound Skin No Abnormality Appearance) (Pt Warm) -Tenderness on Palpation (Maria M-wound No Skin Appearance) -Ulcer Cleansing Wound Cleanser -Foul Odor after Cleansing No -Anesthetic Used 4% Lidocaine Solution #13 LEFT MEDIAL PLANTAR -Combined with other wound No -Current Size (cm) - Length 2.5 -Current Size (cm) - Width 2.7 -Current Size (cm) - Depth 0.6 -Total Square Cm 6.75 -Tunneling No -Undermining/Tunneling No -Circular Undermining No -Exudate Amt Medium -Exudate Type Serosanguineous -Wound Margin Thickened -Granulation Amt Medium (34-66%) -Granulation Quality [place] -Slough/Fibrin Yes -Necrosis Amt Large (67-100%) -Necrotic Tissue Type Adherent Slough -Structure Exposed N/A -Texture (Maria M-wound Skin Appearance) Callus -Moisture (Maria M-wound Skin Appearance Assessed ) -Color (Maria M-wound Skin Appearance) Assessed -Temperature (Maria M-wound Skin No Abnormality Appearance) (Pt Warm) -Tenderness on Palpation (Maria M-wound No Skin Appearance) -Ulcer Cleansing Wound Cleanser -Foul Odor after Cleansing No -Anesthetic Used 4% Lidocaine Solution [Edema Assessment] -Lower Limb Edema Present Yes -Right Calf (cm) 46.1 -Right Ankle (cm) 25.4 WC - Nurse 2 - General Ulcer CM Notes Start: 12/27/20 13:23 Freq: Status: Active Protocol: Activity Type Activity Date Activity User E-Sign Co-Sign Detail Recorded Client Recorded Date Recorded By Document 12/27/20 13:53 CASSY [id number] 12/27/20 14:06 CASSY 12/27/20 13:53 Wound Center Nurse 2 [Procedure/Treatment] #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 -Time 13:57 -Correct Patient Yes -Correct Side, Site, Position Yes -Correct Procedure Yes -Procedure Performed Yes -Type of Procedure Debridement -Clinical Debridement Subcutaneous -Tissue Removed Subcutaneous -Post Debridement (cm) - Length 0.5 -Post Debridement (cm) - Width 0.3 -Post Debridement (cm) - Depth 0.2 -Total Square (Post) (cm) 0.15 -Area of Debridement (cm) - Length 0.5 -Area of Debridement (cm) - Width 0.3 -Total Square (Area) (cm) 0.15 -Tunneling No -Undermining/Tunneling No -Circular Undermining No -Wound/Ulcer Outcome Not Healed -Ulcer Cleansing Rinsed/ Irrigated with Saline -Foul Odor after Cleansing No -Bioengineered Tissue No -Bleeding Controlled with Pressure -Offloading No -Treatment Response Procedure Tolerated Well -Debridement - Subq, 1st 20sq cm Yes #15 right lateral plantar -Time 13:58 -Correct Patient Yes -Correct Side, Site, Position Yes -Correct Procedure Yes -Procedure Performed Yes -Type of Procedure Debridement -Clinical Debridement Subcutaneous -Tissue Removed Subcutaneous -Post Debridement (cm) - Length 0.6 -Post Debridement (cm) - Width 0.2 -Post Debridement (cm) - Depth 0.2 -Total Square (Post) (cm) 0.12 -Area of Debridement (cm) - Length 0.6 -Area of Debridement (cm) - Width 0.2 -Total Square (Area) (cm) 0.12 -Tunneling No -Undermining/Tunneling No -Circular Undermining No -Wound/Ulcer Outcome Not Healed -Ulcer Cleansing Rinsed/ Irrigated with Saline -Foul Odor after Cleansing No -Bioengineered Tissue Yes -Type of Bioengineered Tissue Epifix 18mm Disc -Expiration Date 08/22/25 -Product Lot Number [id number] -Percent Used 100 -Lot number of Saline Used [id number] -Bleeding Controlled with Pressure -Offloading Yes -Type of Offloading Surgical Shoe -Treatment Response Procedure Tolerated Well -Debridement - Subq, 1st 20sq cm No -Apply Skin Sub - 1st 25 sq cm - Feet 1 -Epifix 18mm Disc 3 Query Text:18mm = 3 #13 LEFT MEDIAL PLANTAR -Time 14:00 -Correct Patient Yes -Correct Side, Site, Position Yes -Correct Procedure Yes -Procedure Performed Yes -Type of Procedure Debridement -Clinical Debridement Subcutaneous -Tissue Removed Subcutaneous -Post Debridement (cm) - Length 2.5 -Post Debridement (cm) - Width 2.8 -Post Debridement (cm) - Depth 0.6 -Total Square (Post) (cm) 7.00 -Area of Debridement (cm) - Length 2.5 -Area of Debridement (cm) - Width 2.8 -Total Square (Area) (cm) 7.00 -Tunneling No -Circular Undermining No -Wound/Ulcer Outcome Not Healed -Ulcer Cleansing Rinsed/ Irrigated with Saline -Foul Odor after Cleansing No -Bioengineered Tissue Yes -Type of Bioengineered Tissue Epifix 18mm Disc -Expiration Date 08/22/25 -Product Lot Number [id number] -Percent Used 100 -Lot number of Saline Used [id number] -Bleeding Controlled with Pressure -Offloading Yes -Type of Offloading Total Contact Cast (TCC) - Left ($) -Treatment Response Procedure Tolerated Well -Debridement - Subq, 1st 20sq cm No -Apply Skin Sub - 1st 25 sq cm - Feet 0 -Epifix 18mm Disc 0 Query Text:18mm = 3 [See Physician Procedure note for Specifics] Pain Scale: 0-10 Numeric [Pain] -Is Patient Pain Free? Yes Musculoskeletal: No Tenderness to Palpation of Joints or Extremities, Muscle Wasting, - - Lack of epicritic sensation is consistent with neuropathic status Psych/Mental Status: Normal Affect, Appropriate Debridement Note Post-Debridement Measurements/Treatment WC - Nurse 2 - General Ulcer CM Notes Start: 12/27/20 13:23 Freq: Status: Active Protocol: Activity Type Activity Date Activity User E-Sign Co-Sign Detail Recorded Client Recorded Date Recorded By Document 12/27/20 13:53 CASSY [id number] 12/27/20 14:06 CASSY 12/27/20 13:53 Wound Center Nurse 2 #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 -Time 13:57 -Correct Patient Yes -Correct Side, Site, Position Yes -Correct Procedure Yes -Procedure Performed Yes -Type of Procedure Debridement -Clinical Debridement Subcutaneous -Tissue Removed Subcutaneous -Post Debridement (cm) - Length 0.5 -Post Debridement (cm) - Width 0.3 -Post Debridement (cm) - Depth 0.2 -Total Square (Post) (cm) 0.15 -Area of Debridement (cm) - Length 0.5 -Area of Debridement (cm) - Width 0.3 -Total Square (Area) (cm) 0.15 -Tunneling No -Undermining/Tunneling No -Circular Undermining No -Wound/Ulcer Outcome Not Healed -Ulcer Cleansing Rinsed/ Irrigated with Saline -Foul Odor after Cleansing No -Bioengineered Tissue No -Bleeding Controlled with Pressure -Offloading No -Treatment Response Procedure Tolerated Well -Debridement - Subq, 1st 20sq cm Yes #15 right lateral plantar -Time 13:58 -Correct Patient Yes -Correct Side, Site, Position Yes -Correct Procedure Yes -Procedure Performed Yes -Type of Procedure Debridement -Clinical Debridement Subcutaneous -Tissue Removed Subcutaneous -Post Debridement (cm) - Length 0.6 -Post Debridement (cm) - Width 0.2 -Post Debridement (cm) - Depth 0.2 -Total Square (Post) (cm) 0.12 -Area of Debridement (cm) - Length 0.6 -Area of Debridement (cm) - Width 0.2 -Total Square (Area) (cm) 0.12 -Tunneling No -Undermining/Tunneling No -Circular Undermining No -Wound/Ulcer Outcome Not Healed -Ulcer Cleansing Rinsed/ Irrigated with Saline -Foul Odor after Cleansing No -Bioengineered Tissue Yes -Type of Bioengineered Tissue Epifix 18mm Disc -Expiration Date 08/22/25 -Product Lot Number [id number] -Percent Used 100 -Lot number of Saline Used [id number] -Bleeding Controlled with Pressure -Offloading Yes -Type of Offloading Surgical Shoe -Treatment Response Procedure Tolerated Well -Debridement - Subq, 1st 20sq cm No -Apply Skin Sub - 1st 25 sq cm - Feet 1 -Epifix 18mm Disc 3 Query Text:18mm = 3 #13 LEFT MEDIAL PLANTAR -Time 14:00 -Correct Patient Yes -Correct Side, Site, Position Yes -Correct Procedure Yes -Procedure Performed Yes -Type of Procedure Debridement -Clinical Debridement Subcutaneous -Tissue Removed Subcutaneous -Post Debridement (cm) - Length 2.5 -Post Debridement (cm) - Width 2.8 -Post Debridement (cm) - Depth 0.6 -Total Square (Post) (cm) 7.00 -Area of Debridement (cm) - Length 2.5 -Area of Debridement (cm) - Width 2.8 -Total Square (Area) (cm) 7.00 -Tunneling No -Circular Undermining No -Wound/Ulcer Outcome Not Healed -Ulcer Cleansing Rinsed/ Irrigated with Saline -Foul Odor after Cleansing No -Bioengineered Tissue Yes -Type of Bioengineered Tissue Epifix 18mm Disc -Expiration Date 08/22/25 -Product Lot Number [id number] -Percent Used 100 -Lot number of Saline Used [id number] -Bleeding Controlled with Pressure -Offloading Yes -Type of Offloading Total Contact Cast (TCC) - Left ($) -Treatment Response Procedure Tolerated Well -Debridement - Subq, 1st 20sq cm No -Apply Skin Sub - 1st 25 sq cm - Feet 0 -Epifix 18mm Disc 0 Query Text:18mm = 3 Pain Scale: 0-10 Numeric Is Patient Pain Free? Yes Wound debrided: plantar foot Laterality: Left Wound Grade/Stage: grade 3 Type of Debridement: Excisional debridement Anesthesia Used: 5% Lidocaine Gel Depth: in the subcutaneous layer Percentage of wound debrided: 100 Instrument Used: #15 blade Tissue Removed: fibrous, devitalized subcutaneous, biofilm, slough, callous Severity: Fat Layer Exposed Amount of bleeding with debridement: Mild Bleeding Controlled with: Pressure Patient tolerated procedure well - Additional Wound Wound debrided: lateral forefoot, anterior leg Laterality: Right Wound Grade/Stage: grade 1 Type of Debridement: Excisional debridement Anesthesia Used: 5% Lidocaine Gel Depth: in the subcutaneous layer Percentage of wound debrided: 100 - foot, - - 5% leg cluster Instrument Used: #15 blade Tissue Removed: fibrous, devitalized subcutaneous, biofilm, slough Severity: Fat Layer Exposed Amount of bleeding with debridement: Mild Bleeding Controlled with: Pressure Patient tolerated procedure: Patient tolerated procedure well Assessment/Plan Active Problems (Last Reviewed 10/31/20 @ 16:[address] Juan Arteaga MD) Diabetic polyneuropathy (Chronic) Ulcer of right foot with fat layer exposed (Chronic) Localized edema (Chronic) Difficulty walking (Chronic) Non-pressure chronic ulcer of other part of left foot with fat layer exposed (Chronic) Type 2 diabetes mellitus with diabetic polyneuropathy (Chronic) Delayed wound healing (Chronic) Ulcer of right lower extremity with fat layer exposed (Chronic) Assessment: Left plantar medial foot ulcer, [place] Grade 3 - stable. Right foot ulcer w/ fat layer exposed at s/p fifth ray resection site (grade 1, prior 3). Right leg ulcer cluster, grade 1. Right medial ankle cluster, grade 1 - healed. left leg ulcer, grade 1 - healed. Morbid obesity. Diabetes type 2 with complications. Walking difficulty and impairment. Delayed healing Plan: I reviewed and discussed his case. Patient is status post right 5th ray resection secondary to osteomyelitis of the right lower extremity. He also follows up today for right leg ulcers and left foot ulcer. He has a remote history of left transmetatarsal amputation. He had a left total contact cast applied last week. Discussed importance of wearing boot with the cast to prevent cracking of the cast. Subcutaneous excisional debridement was performed as noted in the clinical panel to the left foot, right foot, right leg. To elevate and reduce salt intake. To continue with Tubigrip compression garments. I recommend application of advanced wound healing product to the right foot. Prior authorization was confirmed. The indications, benefits, anticipated application and healing time management were reviewed in detail. Verbal consent was obtained in the procedure for today. Epi fix was applied according to standard protocol and was further secured with a wound veil and Steri-Strips. He tolerated this well. He was advised to keep this dressing of the right foot clean, dry, and intact until follow-up next week. Right leg clusters and left foot had hydrogel applied and were dressed with gauze. Epifix advancement had prior application to the left foot also. There has been applications in the remote setting approved for this limb salvage technique again. Prior authorization will be started. This is medically necessary for limb salvage. He has tried other conservative care without healed status. Verbal consent was applied for a total contact cast to the left lower extremity. This was applied according to standard protocol in a rectus well padded manner. He tolerated this well. He was advised to keep this clean, dry, intact until follow up next week. I discussed the need for serious offloading for limb salvage purposes. He has tried various shoes and walking boots. He presents with full weightbearing and diabetic shoes again today which is not recommended. He has struggled with the use of such as a walker of a knee roller. An electric wheelchair (extra width) is also an option and at this time I recommend this. This was not approved. I suggested he review this option with his insurance account executive to see if a different route of approval is more appropriate such as different codes or going through PCP / physical therapist. He started this process and still needs to communicate this with the medical team so we can help him proceed forward. His noninvasive vascular studies were reviewed from 05-04-2020 which were normal and intervention was previously not recommended. I advised him to follow-up with all of Dr. Bonilla's recommendations to optimize his healing process. He has for help scheduling this because he has not been able to do this. He has recently been seen and intervention is planned for arterial optimization. An updated bilateral duplex was also recommended to help with planning. To continue to work on decreasing glucose levels. He has a history of hyperglycemia. To continue follow-up with primary care physician. To continue to follow-up with nutritional services. To continue to follow-up as advised. He is currently making adjustments with his nutritional habits. He also follows up with welding machine operator friction, Dr. Arteaga, who is working with him to reduce his hemoglobin A1c with medication and behavioral changes. Smoking cessation was discussed in detail and he was advised on the healing impairment associated with this. To continue with his smoking cessation program. I also recommend discontinuation of nicotine products for this also contributes to small vessel contraction. I answered all of his questions today. . To return to clinic in 1 week or call sooner if questions, concerns, or progressive worsening. I answered all his questions. Note: [employer] speech recognition concrete plant laborer software was used to create portions of this document. Sound-alike and misspelled words, as well as other concrete plant laborer errors may be contained in the documentation.
[2021-01-03 14:59] VITALS: BP 148/75; PULSE 84; RESP 18; TEMP 36.8; BMI 48.5
--- NOTE | 2021-01-03 17:07 | PN.PCM_ITS ---
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 exposed Status: Chronic Code(s): L97.522 - Non-pressure chronic ulcer of other part of left foot with fat layer exposed (6) Type 2 diabetes mellitus with diabetic polyneuropathy Status: Chronic Qualifiers: Code(s): E11.42 - Type 2 diabetes mellitus with diabetic polyneuropathy (7) Ulcer of right lower extremity with fat layer exposed Status: Chronic Code(s): L97.912 - Non-pressure chronic ulcer of unspecified part of right lower leg with fat layer exposed (8) Delayed wound healing Status: Chronic Code(s): T14.8XXD - Other injury of unspecified body region, subsequent encounter Type of Wound Date of Service: 01/03/21 Chief Complaint: Diabetic left foot ulceration, [place] Grade 3. right and left leg ulcers. Right foot ulcer (prior surgery). left foot ulcer History of Wound: This 65-year-old male with multiple comorbidities was seen today for bilateral foot ulcer. His left foot ulcer onset was 12-07-2019. He is previously known to me and had a left transmetatarsal amputation performed pr eviously. He also had a 5th ray resection performed on his right foot and he has residual ulcer at that site. He also has ulcers in a clustered manner to his right leg. He denies diarrhea,fever, chill, nausea, vomiting. He completed hyperbaric oxygen therapy sessions. He denies redness or odor. He denies calf pain. He continues to struggle with edema management, smoking cessation, nutrition, and maintaining reduced weightbearing activity. He is ready to proceed with application of left total contact cast again today. He denies new injuries. He has done well with epi fix applications to the right foot so far. He thinks the site has healed. His total contact cast scraped on his right ankle reopened his ulcer site when he fell asleep on his side. This occurred within the past 4 days. He denies redness or odor. Progress of Wound: Improved right leg, left foot, healed right foot - Physical Exam Vital Signs Temp Pulse Resp BP 98.2 F 84 18 148/75 H 01/03/21 14:59 01/03/21 14:59 01/03/21 14:59 01/03/21 14:59 General: Alert, Oriented x3, Cooperative, No apparent distress HEENT: Atraumatic Extremities: No cyanosis, Capillary Refill Less than 3 Seconds, No Calf Tenderness, Diminished Peripheral Pulses, Edema Skin: Ulcer/ Wound - No purulence, erythema, streaking, odor, infection. Adjacent skin atrophic. Full epithelialization to right foot and the site has healed, - - New skin discontinuity medial malleolus without erythema or deep tissue exposure. Granular fibrous base Wound Measurements and Assessment WC - Nurse 1 - General Ulcer Measurement Start: 12/27/20 13:23 Freq: Status: Active Protocol: Activity Type Activity Date Activity User E-Sign Co-Sign Detail Recorded Client Recorded Date Recorded By Document 01/03/21 14:[address] [facility] [id number] 01/03/21 15:[address] [facility] 01/03/21 14:59 Wound Center Nurse 1 [Ulcer Assessment] #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 -Combined with other wound No -Current Size (cm) - Length 11.1 -Current Size (cm) - Width 5.3 -Current Size (cm) - Depth 0.2 -Total Square Cm 58.83 -Photo Taken No -Epithelialization None Present -Tunneling No -Undermining/Tunneling No -Circular Undermining No -Exudate Amt Medium -Exudate Type Serosanguineous -Wound Margin Distinct, Outline Attached -Granulation Amt Small (1-33%) -Granulation Quality Red -Slough/Fibrin Yes -Necrosis Amt Large (67-100%) -Necrotic Tissue Type Adherent Slough -Texture (Maria M-wound Skin Appearance) Assessed, Scarring -Moisture (Maria M-wound Skin Appearance Assessed ) -Color (Maria M-wound Skin Appearance) Assessed, Erythema -Temperature (Maria M-wound Skin No Abnormality Appearance) (Pt Warm) -Tenderness on Palpation (Maria M-wound No Skin Appearance) -Ulcer Cleansing SOAPY WATER -Foul Odor after Cleansing No -Anesthetic Used 4% Lidocaine Solution #15 right lateral plantar -Combined with other wound No -Current Size (cm) - Length 0.1 -Current Size (cm) - Width 0.1 -Current Size (cm) - Depth 0.1 -Total Square Cm 0.01 -Photo Taken No -Epithelialization Large 67-100% -Tunneling No -Undermining/Tunneling No -Circular Undermining No -Exudate Amt None Present -Texture (Maria M-wound Skin Appearance) Assessed,Callus -Moisture (Maria M-wound Skin Appearance Assessed,Dry/ ) Scaly -Color (Maria M-wound Skin Appearance) Assessed -Temperature (Maria M-wound Skin No Abnormality Appearance) (Pt Warm) -Tenderness on Palpation (Maria M-wound No Skin Appearance) -Ulcer Cleansing SOAPY WATER -Foul Odor after Cleansing No -Anesthetic Used 4% Lidocaine Solution #13 LEFT MEDIAL PLANTAR -Combined with other wound No -Current Size (cm) - Length 2.1 -Current Size (cm) - Width 2.2 -Current Size (cm) - Depth 0.3 -Total Square Cm 4.62 -Photo Taken No -Epithelialization None Present -Tunneling No -Undermining/Tunneling No -Circular Undermining No -Exudate Amt Large -Exudate Type Serosanguineous -Wound Margin Distinct, Outline Attached -Granulation Amt Large (67-100%) -Granulation Quality [place] -Slough/Fibrin Yes -Necrosis Amt Small (1-33%) -Necrotic Tissue Type Adherent Slough -Texture (Maria M-wound Skin Appearance) Assessed,Callus ,Scarring -Moisture (Maria M-wound Skin Appearance Assessed,Dry/ ) Scaly -Color (Maria M-wound Skin Appearance) Assessed -Temperature (Maria M-wound Skin No Abnormality Appearance) (Pt Warm) -Tenderness on Palpation (Maria M-wound No Skin Appearance) -Ulcer Cleansing SOAPY WATER -Foul Odor after Cleansing No -Anesthetic Used 4% Lidocaine Solution [Edema Assessment] -Lower Limb Edema Present Yes -Right Calf (cm) 45.7 -Right Ankle (cm) 25.6 WC - Nurse 2 - General Ulcer CM Notes Start: 12/27/20 13:23 Freq: Status: Active Protocol: Activity Type Activity Date Activity User E-Sign Co-Sign Detail Recorded Client Recorded Date Recorded By Document 01/03/21 15:35 [id number] 01/03/21 15:43 01/03/21 15:35 Wound Center Nurse 2 [Procedure/Treatment] #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 -Time 15:37 -Correct Patient Yes -Correct Side, Site, Position Yes -Correct Procedure Yes -Procedure Performed Yes -Type of Procedure Debridement -Clinical Debridement Subcutaneous -Tissue Removed Subcutaneous -Post Debridement (cm) - Length 2 -Post Debridement (cm) - Width 1 -Post Debridement (cm) - Depth 0.2 -Total Square (Post) (cm) 2 -Area of Debridement (cm) - Length 2 -Area of Debridement (cm) - Width 1 -Total Square (Area) (cm) 2 -Tunneling No -Undermining/Tunneling No -Circular Undermining No -Wound/Ulcer Outcome Not Healed -Ulcer Cleansing Rinsed/ Irrigated with Saline -Foul Odor after Cleansing No -Bioengineered Tissue No -Bleeding Controlled with Pressure -Offloading No -Treatment Response Procedure Tolerated Well -Debridement - Subq, 1st 20sq cm Yes -Apply Skin Sub - 1st 25 sq cm - Feet 1 -Epifix (per sq cm) 4 #15 right lateral plantar -Correct Patient No -Correct Side, Site, Position No -Correct Procedure No -Procedure Performed No -Post Debridement (cm) - Length 0 -Post Debridement (cm) - Width 0 -Post Debridement (cm) - Depth 0 -Total Square (Post) (cm) 0 -Area of Debridement (cm) - Length 0 -Area of Debridement (cm) - Width 0 -Total Square (Area) (cm) 0 -Wound/Ulcer Outcome Healed- Epithelialized #13 LEFT MEDIAL PLANTAR -Time 15:40 -Correct Patient Yes -Correct Side, Site, Position Yes -Correct Procedure Yes -Procedure Performed Yes -Type of Procedure Debridement -Clinical Debridement Subcutaneous -Tissue Removed Subcutaneous -Post Debridement (cm) - Length 3.2 -Post Debridement (cm) - Width 2.2 -Post Debridement (cm) - Depth 0.3 -Total Square (Post) (cm) 7.04 -Area of Debridement (cm) - Length 3.2 -Area of Debridement (cm) - Width 2.2 -Total Square (Area) (cm) 7.04 -Tunneling No -Undermining/Tunneling No -Circular Undermining No -Wound/Ulcer Outcome Not Healed -Ulcer Cleansing Rinsed/ Irrigated with Saline -Foul Odor after Cleansing No -Bioengineered Tissue Yes -Type of Bioengineered Tissue Epifix -Expiration Date 08/22/25 -Product Lot Number [id number] -Percent Used 100 -Lot number of Saline Used [id number] -Bleeding Controlled with Pressure -Offloading Yes -Type of Offloading Total Contact Cast (TCC) - Left ($) -Treatment Response Procedure Tolerated Well -Debridement - Subq, 1st 20sq cm No -Apply Skin Sub - 1st 25 sq cm - Feet 1 -Epifix (per sq cm) 4 [See Physician Procedure note for Specifics] Pain Scale: 0-10 Numeric [Pain] -Is Patient Pain Free? Yes - Nurse 3 - General Ulcer D/C NN Start: 12/27/20 13:23 Freq: Status: Active Protocol: Activity Type Activity Date Activity User E-Sign Co-Sign Detail Recorded Client Recorded Date Recorded By Document 01/03/21 16:[address] [facility] [id number] 01/03/21 16:[address] [facility] 01/03/21 16:00 Wound Care Nurse 3 [Wound Dressing] #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 -Ulcer Cleansing Rinsed/ Irrigated with Saline -Foul Odor after Cleansing No -Primary Dressing Applied Other -Other Dressing HYDROGEL -Primary Dressing Covered/Secured Dry Gauze & with Roll Gauze, Secured with Tape #13 LEFT MEDIAL PLANTAR -Other Dressing EPIFIX -Other Covering TCC UNDERCAST PER Aamir ROBERTS RN [Post Procedure Tolerated] -Treatment Response Procedure Tolerated Well Pain Scale: 0-10 Numeric [Pain] -Is Patient Pain Free? Yes - Visit Discharge [Visit Discharge Information] -Discharge Condition Stable -Ambulatory Status Ambulatory,Cane -Transportation Private Auto Musculoskeletal: No Tenderness to Palpation of Joints or Extremities, Muscle Wasting, - - Transmetatarsal amputation left. Right fifth ray resection. Compartments are soft to palpate bilateral lower extremities Neurological: - - Lack of epicritic sensation to light touch is consistent with neuropathy Psych/Mental Status: Normal Affect, Appropriate Debridement Note Post-Debridement Measurements/Treatment - Nurse 2 - General Ulcer CM Notes Start: 12/27/20 13:23 Freq: Status: Active Protocol: Activity Type Activity Date Activity User E-Sign Co-Sign Detail Recorded Client Recorded Date Recorded By Document 12/27/20 13:53 [id number] 12/27/20 14:06 JF Document 01/03/21 15:35 [id number] 01/03/21 15:43 JF 12/27/20 01/03/21 13:53 15:35 Wound Center Nurse 2 #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 -Time 13:57 15:37 -Correct Patient Yes Yes -Correct Side, Site, Position Yes Yes -Correct Procedure Yes Yes -Procedure Performed Yes Yes -Type of Procedure Debridement Debridement -Clinical Debridement Subcutaneous Subcutaneous -Tissue Removed Subcutaneous Subcutaneous -Post Debridement (cm) - Length 0.5 2 -Post Debridement (cm) - Width 0.3 1 -Post Debridement (cm) - Depth 0.2 0.2 -Total Square (Post) (cm) 0.15 2 -Area of Debridement (cm) - Length 0.5 2 -Area of Debridement (cm) - Width 0.3 1 -Total Square (Area) (cm) 0.15 2 -Tunneling No No -Undermining/Tunneling No No -Circular Undermining No No -Wound/Ulcer Outcome Not Healed Not Healed -Ulcer Cleansing Rinsed/ Rinsed/ Irrigated with Irrigated with Saline Saline -Foul Odor after Cleansing No No -Bioengineered Tissue No No -Bleeding Controlled with Pressure Pressure -Offloading No No -Treatment Response Procedure Procedure Tolerated Well Tolerated Well -Debridement - Subq, 1st 20sq cm Yes Yes -Apply Skin Sub - 1st 25 sq cm - Feet 1 -Epifix (per sq cm) 4 #15 right lateral plantar -Time 13:58 -Correct Patient Yes No -Correct Side, Site, Position Yes No -Correct Procedure Yes No -Procedure Performed Yes No -Type of Procedure Debridement -Clinical Debridement Subcutaneous -Tissue Removed Subcutaneous -Post Debridement (cm) - Length 0.6 0 -Post Debridement (cm) - Width 0.2 0 -Post Debridement (cm) - Depth 0.2 0 -Total Square (Post) (cm) 0.12 0 -Area of Debridement (cm) - Length 0.6 0 -Area of Debridement (cm) - Width 0.2 0 -Total Square (Area) (cm) 0.12 0 -Tunneling No -Undermining/Tunneling No -Circular Undermining No -Wound/Ulcer Outcome Not Healed Healed- Epithelialized -Ulcer Cleansing Rinsed/ Irrigated with Saline -Foul Odor after Cleansing No -Bioengineered Tissue Yes -Type of Bioengineered Tissue Epifix 18mm Disc -Expiration Date 08/22/25 -Product Lot Number [id number] -Percent Used 100 -Lot number of Saline Used [id number] -Bleeding Controlled with Pressure -Offloading Yes -Type of Offloading Surgical Shoe -Treatment Response Procedure Tolerated Well -Debridement - Subq, 1st 20sq cm No -Apply Skin Sub - 1st 25 sq cm - Feet 1 -Epifix 18mm Disc 3 #13 LEFT MEDIAL PLANTAR -Time 14:00 15:40 -Correct Patient Yes Yes -Correct Side, Site, Position Yes Yes -Correct Procedure Yes Yes -Procedure Performed Yes Yes -Type of Procedure Debridement Debridement -Clinical Debridement Subcutaneous Subcutaneous -Tissue Removed Subcutaneous Subcutaneous -Post Debridement (cm) - Length 2.5 3.2 -Post Debridement (cm) - Width 2.8 2.2 -Post Debridement (cm) - Depth 0.6 0.3 -Total Square (Post) (cm) 7.00 7.04 -Area of Debridement (cm) - Length 2.5 3.2 -Area of Debridement (cm) - Width 2.8 2.2 -Total Square (Area) (cm) 7.00 7.04 -Tunneling No No -Undermining/Tunneling No -Circular Undermining No No -Wound/Ulcer Outcome Not Healed Not Healed -Ulcer Cleansing Rinsed/ Rinsed/ Irrigated with Irrigated with Saline Saline -Foul Odor after Cleansing No No -Bioengineered Tissue Yes Yes -Type of Bioengineered Tissue Epifix 18mm Epifix Disc -Expiration Date 08/22/25 08/22/25 -Product Lot Number [id number] -Percent Used 100 100 -Lot number of Saline Used [id number] -Bleeding Controlled with Pressure Pressure -Offloading Yes Yes -Type of Offloading Total Contact Total Contact Cast (TCC) - Cast (TCC) - Left ($) Left ($) -Treatment Response Procedure Procedure Tolerated Well Tolerated Well -Debridement - Subq, 1st 20sq cm No No -Apply Skin Sub - 1st 25 sq cm - Feet 0 1 -Epifix (per sq cm) 4 -Epifix 18mm Disc 0 Pain Scale: 0-10 Numeric Is Patient Pain Free? Yes Yes WC - Nurse 3 - General Ulcer D/C NN Start: 12/27/20 13:23 Freq: Status: Active Protocol: Activity Type Activity Date Activity User E-Sign Co-Sign Detail Recorded Client Recorded Date Recorded By Document 01/03/21 16:[address] [facility] [id number] 01/03/21 16:[address] [facility] 01/03/21 16:00 Wound Care Nurse 3 #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 -Ulcer Cleansing Rinsed/ Irrigated with Saline -Foul Odor after Cleansing No -Primary Dressing Applied Other -Other Dressing HYDROGEL -Primary Dressing Covered/Secured with Dry Gauze & Roll Gauze, Secured with Tape #13 LEFT MEDIAL PLANTAR -Other Dressing EPIFIX -Other Covering TCC UNDERCAST PER Aamir ROBERTS RN Treatment Response Procedure Tolerated Well Pain Scale: 0-10 Numeric Is Patient Pain Free? Yes WC - Visit Discharge Discharge Condition Stable Ambulatory Status Ambulatory,Cane Transportation Private Auto Wound debrided: leg Laterality: Right Wound Grade/Stage: grade 1 Type of Debridement: Excisional debridement Anesthesia Used: 5% Lidocaine Gel Depth: in the subcutaneous layer Percentage of wound debrided: - - 2% Instrument Used: #15 blade Tissue Removed: fibrous, devitalized subcutaneous, biofilm, slough Severity: Fat Layer Exposed Amount of bleeding with debridement: Mild Bleeding Controlled with: Pressure Patient tolerated procedure well - Additional Wound Wound debrided: plantar foot Laterality: Left - g Wound Grade/Stage: grade 3 Type of Debridement: Excisional debridement Anesthesia Used: 5% Lidocaine Gel Depth: in the subcutaneous layer Percentage of wound debrided: 100 Instrument Used: #15 blade Tissue Removed: fibrous, devitalized subcutaneous, biofilm, slough Severity: Fat Layer Exposed Amount of bleeding with debridement: Mild Bleeding Controlled with: Pressure Patient tolerated procedure: Patient tolerated procedure well Assessment/Plan Active Problems (Last Reviewed 10/31/20 @ 16:[address] Juan Arteaga MD) Diabetic polyneuropathy (Chronic) Localized edema (Chronic) Difficulty walking (Chronic) Non-pressure chronic ulcer of other part of left foot with fat layer exposed (Chronic) Type 2 diabetes mellitus with diabetic polyneuropathy (Chronic) Delayed wound healing (Chronic) Ulcer of right lower extremity with fat layer exposed (Chronic) Assessment: Left plantar medial foot ulcer, [place] Grade 3 - stable. Right foot ulcer w/ fat layer exposed at s/p fifth ray resection site - healed. Right leg ulcer cluster, grade 1. Right medial ankle cluster, grade 1 - reopened. Morbid obesity. Diabetes type 2 with complications. Walking difficulty and impairment. Delayed healing Plan: I reviewed and discussed his case. Patient is status post right 5th ray resection secondary to osteomyelitis of the right lower extremity. This site is now healed. He also follows up today for right leg ulcers and left foot ulcer. He has a remote history of left transmetatarsal amputation. He had a left total contact cast applied last week. Discussed importance of wearing boot with the cast to prevent cracking of the cast. Subcutaneous excisional debridement was performed as noted in the clinical panel to the left foot and right leg. To elevate and reduce salt intake. To continue with Tubigrip compression garments. I recommend application of advanced wound healing product to the left foot. Prior authorization was confirmed. The indications, benefits, anticipated application and healing time management were reviewed in detail. Verbal consent was obtained in the procedure for today. Epi fix was applied according to standard protocol and was further secured with a wound veil and Steri-Strips. He tolerated this well. He was advised to keep this dressing of the right foot clean, dry, and intact until follow-up next week. Hydrogel was applied to other wound site. The application of advanced wound healing product is medically necessary for limb salvage. He has tried other conservative care without healed status. Verbal consent was applied for a total contact cast to the left lower extremity. This was applied according to standard protocol in a rectus well padded manner. He tolerated this well. He was advised to keep this clean, dry, intact until follow up next week. I discussed the need for serious offloading for limb salvage purposes. He has tried various shoes and walking boots. He presents with full weightbearing and diabetic shoes again today which is not recommended. He has struggled with the use of such as a walker of a knee ro ller. An electric wheelchair (extra width) is also an option and at this time I recommend this. This was not approved. I suggested he review this option with his disability insurance claim examiner to see if a different route of approval is more appropriate such as different codes or going through PCP / physical therapist. He started this process and still needs to communicate this with the medical team so we can help him proceed forward. His noninvasive vascular studies were reviewed from 05-04-2020 which were normal and intervention was previously not recommended. I advised him to follow-up with all of Dr. Bonilla's recommendations to optimize his healing process. He has for help scheduling this because he has not been able to do this. He has recently been seen and intervention is planned for arterial optimization. An updated bilateral duplex was also recommended to help with planning. To continue to work on decreasing glucose levels. He has a history of hyperglycemia. To continue follow-up with primary care physician. To continue to follow-up with nutritional services. To continue to follow-up as advised. He is currently making adjustments with his nutritional habits. He also follows up with tenter frame operator, Dr. Arteaga, who is working with him to reduce his hemoglobin A1c with medication and behavioral changes. Smoking cessation was discussed in detail and he was advised on the healing impairment associated with this. To continue with his smoking cessation program. I also recommend discontinuation of nicotine products for this also contributes to small vessel contraction. I answered all of his questions today. . To return to clinic in 1 week or call sooner if questions, concerns, or progressive worsening. I answered all his questions. Note: [employer] speech re cognition economic analysis director software was used to create portions of this document. Sound-alike and misspelled words, as well as other economic analysis director errors may be contained in the documentation. 20 to 29 minutes was spent on this encounter. This included face to face and non face to face care including preparing for the visit, reviewing the history, performing the exam, counseling and providing education to the patient, family, or caregiver, ordering medications/test/ procedures if indicated as documented, communicating with other healthcare providers, documenting information in the medical record, interpreting / sharing this information when indicated as documented, and care coordination. . Jose Maria 21: Medications and allergies reviewed and reconciled. He is a current tobacco user and was advised on smoking cessation. His pneumococcal and influenza vaccinations have been completed and are up-to-date. His body mass index is elevated at 40.5. He does have elevated blood pressure at 148/75. Nutrition and exercise recommendations were reviewed to decrease blood pressure to optimize healing potential. To follow-up with primary care physician.
[2021-01-10 14:56] VITALS: BP 149/79; PULSE 82; RESP 18; TEMP 35.7; BMI 48.5
--- NOTE | 2021-01-10 16:59 | PN.PCM_ITS ---
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 exposed Status: Chronic Code(s): L97.522 - Non-pressure chronic ulcer of other part of left foot with fat layer exposed (6) Type 2 diabetes mellitus with diabetic polyneuropathy Status: Chronic Qualifiers: Code(s): E11.42 - Type 2 diabetes mellitus with diabetic polyneuropathy (7) Ulcer of right lower extremity with fat layer exposed Status: Chronic Code(s): L97.912 - Non-pressure chronic ulcer of unspecified part of right lower leg with fat layer exposed (8) Delayed wound healing Status: Chronic Code(s): T14.8XXD - Other injury of unspecified body region, subsequent encounter Type of Wound Date of Service: 01/10/21 Chief Complaint: Diabetic left foot ulceration, [place] Grade 3. right and left leg ulcers. Right foot ulcer (prior surgery). left foot ulcer History of Wound: This 65-year-old male with multiple comorbidities was seen today for left foot ulcer that is very chronic. He was also seen for right leg and medial ankle ulcers. He denies diarrhea,fever, chill, nausea, vomiting. He denies redness or odor. He denies calf pain. He continues to struggle with edema management, smoking cessation, nutrition, and maintaining reduced weightbearing activity. He is ready to proceed with application of left total contact cast again today. He denies new injuries. He has done well with epi fix applications to the left foot so far. Progress of Wound: Improving all - Physical Exam Vital Signs Temp Pulse Resp BP 96.2 F L 82 18 149/79 H 01/10/21 14:56 01/10/21 14:56 01/10/21 14:56 01/10/21 14:56 General: Alert, Oriented x3, Cooperative, No apparent distress Extremities: No cyanosis, No Calf Tenderness, Diminished Peripheral Pulses, Edema Skin: Ulcer/ Wound - No purulence, erythema, string, odor, infection. Adjacent skin is hairless and atrophic Wound Measurements and Assessment WC - Nurse 1 - General Ulcer Measurement Start: 12/27/20 13:23 Freq: Status: Active Protocol: Activity Type Activity Date Activity User E-Sign Co-Sign Detail Recorded Client Recorded Date Recorded By Document 01/10/21 14:56 [facility] [id number] 01/10/21 15:09 [facility] 01/10/21 14:56 Wound Center Nurse 1 [Ulcer Assessment] #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 -Combined with other wound No -Current Size (cm) - Length 10.5 -Current Size (cm) - Width 2 -Current Size (cm) - Depth 0.1 -Total Square Cm 21.0 -Photo Taken No -Epithelialization None Present -Tunneling No -Undermining/Tunneling No -Circular Undermining No -Exudate Amt None Present -Exudate Type Serosanguineous -Wound Margin Distinct, Outline Attached -Granulation Amt None Present (0 %) -Slough/Fibrin Yes -Necrosis Amt Large (67-100%) -Necrotic Tissue Type Adherent Slough -Texture (Maria M-wound Skin Appearance) Assessed, Scarring -Moisture (Maria M-wound Skin Appearance Assessed ) -Color (Maria M-wound Skin Appearance) Assessed, Erythema -Temperature (Maria M-wound Skin No Abnormality Appearance) (Pt Warm) -Tenderness on Palpation (Maria M-wound No Skin Appearance) -Ulcer Cleansing Wound Cleanser -Foul Odor after Cleansing No -Anesthetic Used 4% Lidocaine Solution #13 LEFT MEDIAL PLANTAR -Combined with other wound No -Current Size (cm) - Length 1.8 -Current Size (cm) - Width 2.2 -Current Size (cm) - Depth 0.3 -Total Square Cm 3.96 -Photo Taken No -Epithelialization Small 1-33% -Tunneling No -Undermining/Tunneling No -Circular Undermining No -Exudate Amt Medium -Exudate Type Serosanguineous -Wound Margin Thickened -Granulation Amt Large (67-100%) -Granulation Quality [place] -Slough/Fibrin Yes -Necrosis Amt Small (1-33%) -Necrotic Tissue Type Adherent Slough -Texture (Maria M-wound Skin Appearance) Assessed,Callus ,Scarring -Moisture (Maria M-wound Skin Appearance Assessed,Dry/ ) Scaly -Color (Maria M-wound Skin Appearance) Assessed -Temperature (Maria M-wound Skin No Abnormality Appearance) (Pt Warm) -Tenderness on Palpation (Maria M-wound No Skin Appearance) -Ulcer Cleansing Wound Cleanser -Foul Odor after Cleansing No -Anesthetic Used 4% Lidocaine Solution [Edema Assessment] -Lower Limb Edema Present Yes -Right Calf (cm) 46 -Right Ankle (cm) 25 -Left Calf (cm) 46.2 -Left Ankle (cm) 27.7 WC - Nurse 2 - General Ulcer CM Notes Start: 12/27/20 13:23 Freq: Status: Active Protocol: Activity Type Activity Date Activity User E-Sign Co-Sign Detail Recorded Client Recorded Date Recorded By Document 01/10/21 15:28 [email or web address] [id number] 01/10/21 15:31 CASSY 01/10/21 15:28 Wound Center Nurse 2 [Procedure/Treatment] #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 -Time 15:28 -Correct Patient Yes -Correct Side, Site, Position Yes -Correct Procedure Yes -Procedure Performed Yes -Type of Procedure Debridement -Clinical Debridement Subcutaneous -Tissue Removed Subcutaneous -Post Debridement (cm) - Length 10 -Post Debridement (cm) - Width 2 -Post Debridement (cm) - Depth 0.1 -Total Square (Post) (cm) 20 -Area of Debridement (cm) - Length 10 -Area of Debridement (cm) - Width 2 -Total Square (Area) (cm) 20 -Tunneling No -Undermining/Tunneling No -Circular Undermining No -Wound/Ulcer Outcome Not Healed -Ulcer Cleansing Rinsed/ Irrigated with Saline -Foul Odor after Cleansing No -Bioengineered Tissue No -Bleeding Controlled with Pressure -Offloading No -Treatment Response Procedure Tolerated Well -Debridement - Subq, 1st 20sq cm Yes #13 LEFT MEDIAL PLANTAR -Time 15:30 -Correct Patient Yes -Correct Side, Site, Position Yes -Correct Procedure Yes -Procedure Performed Yes -Type of Procedure Debridement -Clinical Debridement Subcutaneous -Tissue Removed Subcutaneous -Post Debridement (cm) - Length 2 -Post Debridement (cm) - Width 2.2 -Post Debridement (cm) - Depth 0.3 -Total Square (Post) (cm) 4.4 -Area of Debridement (cm) - Length 2 -Area of Debridement (cm) - Width 2.2 -Total Square (Area) (cm) 4.4 -Tunneling No -Undermining/Tunneling No -Circular Undermining No -Wound/Ulcer Outcome Not Healed -Ulcer Cleansing Rinsed/ Irrigated with Saline -Foul Odor after Cleansing No -Bioengineered Tissue Yes -Type of Bioengineered Tissue Epifix -Expiration Date 06/22/25 -Product Lot Number [id number] -Percent Used 100 -Lot number of Saline Used [id number] -Bleeding Controlled with Pressure -Offloading Yes -Type of Offloading Total Contact Cast (TCC) - Left ($) -Treatment Response Procedure Tolerated Well -Debridement - Subq, 1st 20sq cm No -Apply Skin Sub - 1st 25 sq cm - Feet 1 -Epifix (per sq cm) 4 [See Physician Procedure note for Specifics] Pain Scale: 0-10 Numeric [Pain] -Is Patient Pain Free? Yes - Nurse 3 - General Ulcer D/C NN Start: 12/27/20 13:23 Freq: Status: Active Protocol: Activity Type Activity Date Activity User E-Sign Co-Sign Detail Recorded Client Recorded Date Recorded By Document 01/10/21 15:48 RB [id number] 01/10/21 15:49 RB 01/10/21 15:48 Wound Care Nurse 3 [Wound Dressing] #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 -Primary Dressing Applied NonAdherent Contact Layer -Other Dressing hydrogel -Primary Dressing Covered/Secured Dry Gauze,Dry with Gauze & Roll Gauze,Secured with Tape #13 LEFT MEDIAL PLANTAR -Other Dressing primary TCC applied [Post Procedure Tolerated] -Treatment Response Procedure Tolerated Well Pain Scale: 0-10 Numeric [Pain] -Is Patient Pain Free? Yes - Visit Discharge [Visit Discharge Information] -Discharge Condition Stable -Ambulatory Status Ambulatory,Cane -Transportation Private Auto -Medication Reconcilliation completed No & provided to patient/care provider -Clinical Summary of Care Provided Yes Musculoskeletal: No Tenderness to Palpation of Joints or Extremities, Muscle Wasting, - - Left transmetatarsal amputation Neurological: - - Neuropathy lack of sensation Psych/Mental Status: Normal Affect, Appropriate Debridement Note Post-Debridement Measurements/Treatment - Nurse 2 - General Ulcer CM Notes Start: 12/27/20 13:23 Freq: Status: Active Protocol: Activity Type Activity Date Activity User E-Sign Co-Sign Detail Recorded Client Recorded Date Recorded By Document 12/27/20 13:53 [id number] 12/27/20 14:06 Document 01/03/21 15:35 [id number] 01/03/21 15:43 Document 01/10/21 15:28 [id number] 01/10/21 15:31 12/27/20 01/03/21 01/10/21 13:53 15:35 15:28 Wound Center Nurse 2 #10 Aamir Mccloud cluster -Time 13:57 15:37 15:28 -Correct Patient Yes Yes Yes -Correct Side, Site, Position Yes Yes Yes -Correct Procedure Yes Yes Yes -Procedure Performed Yes Yes Yes -Type of Procedure Debridement Debridement Debridement -Clinical Debridement Subcutaneous Subcutaneous Subcutaneous -Tissue Removed Subcutaneous Subcutaneous Subcutaneous -Post Debridement (cm) - Length 0.5 2 10 -Post Debridement (cm) - Width 0.3 1 2 -Post Debridement (cm) - Depth 0.2 0.2 0.1 -Total Square (Post) (cm) 0.15 2 20 -Area of Debridement (cm) - Length 0.5 2 10 -Area of Debridement (cm) - Width 0.3 1 2 -Total Square (Area) (cm) 0.15 2 20 -Tunneling No No No -Undermining/Tunneling No No No -Circular Undermining No No No -Wound/Ulcer Outcome Not Healed Not Healed Not Healed -Ulcer Cleansing Rinsed/ Rinsed/ Rinsed/ Irrigated with Irrigated with Irrigated with Saline Saline Saline -Foul Odor after Cleansing No No No -Bioengineered Tissue No No No -Bleeding Controlled with Pressure Pressure Pressure -Offloading No No No -Treatment Response Procedure Procedure Procedure Tolerated Well Tolerated Well Tolerated Well -Debridement - Subq, 1st 20sq cm Yes Yes Yes #15 right lateral plantar -Time 13:58 -Correct Patient Yes No -Correct Side, Site, Position Yes No -Correct Procedure Yes No -Procedure Performed Yes No -Type of Procedure Debridement -Clinical Debridement Subcutaneous -Tissue Removed Subcutaneous -Post Debridement (cm) - Length 0.6 0 -Post Debridement (cm) - Width 0.2 0 -Post Debridement (cm) - Depth 0.2 0 -Total Square (Post) (cm) 0.12 0 -Area of Debridement (cm) - Length 0.6 0 -Area of Debridement (cm) - Width 0.2 0 -Total Square (Area) (cm) 0.12 0 -Tunneling No -Undermining/Tunneling No -Circular Undermining No -Wound/Ulcer Outcome Not Healed Healed- Epithelialized -Ulcer Cleansing Rinsed/ Irrigated with Saline -Foul Odor after Cleansing No -Bioengineered Tissue Yes -Type of Bioengineered Tissue Epifix 18mm Disc -Expiration Date 08/22/25 -Product Lot Number [id number] -Percent Used 100 -Lot number of Saline Used [id number] -Bleeding Controlled with Pressure -Offloading Yes -Type of Offloading Surgical Shoe -Treatment Response Procedure Tolerated Well -Debridement - Subq, 1st 20sq cm No -Apply Skin Sub - 1st 25 sq cm - Feet 1 -Epifix 18mm Disc 3 #13 LEFT MEDIAL PLANTAR -Time 14:00 15:40 15:30 -Correct Patient Yes Yes Yes -Correct Side, Site, Position Yes Yes Yes -Correct Procedure Yes Yes Yes -Procedure Performed Yes Yes Yes -Type of Procedure Debridement Debridement Debridement -Clinical Debridement Subcutaneous Subcutaneous Subcutaneous -Tissue Removed Subcutaneous Subcutaneous Subcutaneous -Post Debridement (cm) - Length 2.5 3.2 2 -Post Debridement (cm) - Width 2.8 2.2 2.2 -Post Debridement (cm) - Depth 0.6 0.3 0.3 -Total Square (Post) (cm) 7.00 7.04 4.4 -Area of Debridement (cm) - Length 2.5 3.2 2 -Area of Debridement (cm) - Width 2.8 2.2 2.2 -Total Square (Area) (cm) 7.00 7.04 4.4 -Tunneling No No No -Undermining/Tunneling No No -Circular Undermining No No No -Wound/Ulcer Outcome Not Healed Not Healed Not Healed -Ulcer Cleansing Rinsed/ Rinsed/ Rinsed/ Irrigated with Irrigated with Irrigated with Saline Saline Saline -Foul Odor after Cleansing No No No -Bioengineered Tissue Yes Yes Yes -Type of Bioengineered Tissue Epifix 18mm Epifix Epifix Disc -Expiration Date 08/22/25 08/22/25 06/22/25 -Product Lot Number [id number] -Percent Used 100 100 100 -Lot number of Saline Used [id number] -Bleeding Controlled with Pressure Pressure Pressure -Offloading Yes Yes Yes -Type of Offloading Total Contact Total Contact Total Contact Cast (TCC) - Cast (TCC) - Cast (TCC) - Left ($) Left ($) Left ($) -Treatment Response Procedure Procedure Procedure Tolerated Well Tolerated Well Tolerated Well -Debridement - Subq, 1st 20sq cm No No No -Apply Skin Sub - 1st 25 sq cm - Feet 0 1 1 -Epifix (per sq cm) 4 4 -Epifix 18mm Disc 0 Pain Scale: 0-10 Numeric Is Patient Pain Free? Yes Yes Yes - Nurse 3 - General Ulcer D/C NN Start: 12/27/20 13:23 Freq: Status: Active Protocol: Activity Type Activity Date Activity User E-Sign Co-Sign Detail Recorded Client Recorded Date Recorded By Document 01/03/21 16:00 [facility] [id number] 01/03/21 16:00 [facility] Document 01/10/21 15:48 [id number] 01/10/21 15:49 01/03/21 01/10/21 16:00 15:48 Wound Care Nurse 3 #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 -Ulcer Cleansing Rinsed/ Irrigated with Saline -Foul Odor after Cleansing No -Primary Dressing Applied Other NonAdherent Contact Layer -Other Dressing HYDROGEL hydrogel -Primary Dressing Covered/Secured with Dry Gauze & Dry Gauze,Dry Roll Gauze, Gauze & Roll Secured with Gauze,Secured Tape with Tape #13 LEFT MEDIAL PLANTAR -Other Dressing EPIFIX primary TCC applied -Other Covering TCC UNDERCAST PER Aamir ROBERTS RN Treatment Response Procedure Procedure Tolerated Well Tolerated Well Pain Scale: 0-10 Numeric Is Patient Pain Free? Yes Yes - Visit Discharge Discharge Condition Stable Stable Ambulatory Status Ambulatory,Cane Ambulatory,Cane Transportation Private Auto Private Auto Medication Reconcilliation completed & No provided to patient/care provider Clinical Summary of Care Provided Yes Wound debrided: medial ankle and leg cluster Laterality: Right Wound Grade/Stage: grade 1 Type of Debridement: Excisional debridement Anesthesia Used: 5% Lidocaine Gel Depth: in the subcutaneous layer Percentage of wound debrided: 100 - medial ankle, 30 - leg cluster Instrument Used: #15 blade Tissue Removed: fibrous, devitalized subcutaneous, biofilm, slough Severity: Fat Layer Exposed Amount of bleeding with debridement: Mild Bleeding Controlled with: Pressure Patient tolerated procedure well - Additional Wound Wound debrided: plantar medial foot Laterality: Left Wound Grade/Stage: grade 3 Type of Debridement: Excisional debridement Anesthesia Used: 5% Lidocaine Gel Depth: in the subcutaneous layer Percentage of wound debrided: 100 Instrument Used: #15 blade Tissue Removed: fibrous, devitalized subcutaneous, biofilm, slough Severity: Fat Layer Exposed Amount of bleeding with debridement: Mild Bleeding Controlled with: Pressure Patient tolerated procedure: Patient tolerated procedure well Assessment/Plan Active Problems (Last Reviewed 10/31/20 @ 16:[address] Juan Arteaga MD) Diabetic polyneuropathy (Chronic) Localized edema (Chronic) Difficulty walking (Chronic) Non-pressure chronic ulcer of other part of left foot with fat layer exposed (Chronic) Type 2 diabetes mellitus with diabetic polyneuropathy (Chronic) Delayed wound healing (Chronic) Ulcer of right lower extremity with fat layer exposed (Chronic) Assessment: Left plantar medial foot ulcer, [place] Grade 3 - stable. Right leg ulcer cluster, grade 1. Right medial ankle cluster, grade 1. Morbid obesity. Diabetes type 2 with complications. Walking difficulty and impairment. Delayed healing Plan: I reviewed and discussed his case. Subcutaneous excisional debridement was performed as noted in the clinical panel to the left foot and the right ankle and leg. He had a left total contact cast applied last week. Discussed importance of wearing boot with the cast to prevent cracking of the cast. . To elevate and reduce salt intake. To continue with Tubigrip compression garments. I recommend application of advanced wound healing product to the left foot. Prior authorization was confirmed. The indications, benefits, anticipated application and healing time management were reviewed in detail. Verbal consent was obtained in the procedure for today. Epi fix was applied according to standard protocol and was further secured with a wound veil and Steri-Strips. He tolerated this well. He was advised to keep this dressing of the right foot clean, dry, and intact until follow-up next week. Hydrogel was applied to other wound site. The application of advanced wound healing product is medically necessary for limb salvage. He has tried other conservative care without healed status. Verbal consent was applied for a total contact cast to the left lower extremity. This was applied according to standard protocol in a rectus well padded manner. He tolerated this well. He was advised to keep this clean, dry, intact until follow up next week. I discussed the need for serious offloading for limb salvage purposes. He has tried various shoes and walking boots. He presents with full weightbearing and diabetic shoes again today which is not recommended. He has struggled with the use of such as a walker of a knee roller. An electric wheelchair (extra width) is also an option and at this time I recommend this. This was not approved. Every 2 hours. His noninvasive vascular studies were reviewed from 05-04-2020 which were normal and intervention was previously not recommended. I advised him to follow-up with all of Dr. Bonilla's recommendations to optimize his healing process. He has for help scheduling this because he has not been able to do this. He has recently been seen and intervention is planned for arterial optimization. An updated bilater al duplex was also recommended to help with planning. To continue to work on decreasing glucose levels. He has a history of hyperglycemia. To continue follow-up with primary care physician. To continue to follow-up with nutritional services. To continue to follow-up as advised. He is currently making adjustments with his nutritional habits. He also follows up with p d driver, Dr. Arteaga, who is working with him to reduce his hemoglobin A1c with medication and behavioral changes. Smoking cessation was discussed in detail and he was advised on the healing impairment associated with this. To continue with his smoking cessation program. I also recommend discontinuation of nicotine products for this also contributes to small vessel contraction. I answered all of his questions today. . To return to clinic in 1 week or call sooner if questions, concerns, or progressive worsening. I answered all his questions. Note: [employer] speech recognition fusing machine feeder software was used to create portions of this document. Sound-alike and misspelled words, as well as other fusing machine feeder errors may be contained in the documentation. . Macra 21: Medications and allergies reviewed and reconciled. He is a current tobacco user and was advised on smoking cessation. His pneumococcal and influenza vaccinations have been completed and are up-to-date. His body mass index is elevated at 40.5. He does have elevated blood pressure at 148/75. Nutrition and exercise recommendations were reviewed to decrease blood pressure to optimize healing potential. To follow-up with primary care physician.
[2021-01-17 09:53] VITALS: BP 153/80; PULSE 98; RESP 22; TEMP 37; BMI 48.5
--- NOTE | 2021-01-17 11:35 | PN_ITS ---
Subjective Subjective: This 65 year old male [facility] for right leg ulcer cluster, right medial ankle ulcer, and left chronic foot ulcer. He had a total contact cast last week on the left and kept this intact. He denies fever, chills, nausea, vomiting. He wears tubigrip. Objective Data Objective Data Vital Signs: Vital Signs Temp Pulse Resp BP 98.6 F 98 22 H 153/80 H 01/17/21 09:53 01/17/21 09:53 01/17/21 09:53 01/17/21 09:53 Oxygen Delivery Method Room Air Weight: 147.418 kg Body Mass Index (BMI) 48.5 Finger Stick Blood Glucose 137 Physical Exam Const alert and oriented x3 General Appearance: cooperative HEENT normocephalic Extremity normal capillary refill Extremity Narrative: no cyanosis, no calf tenderness, diminished pulses muscle wasting noted. no tenderness. General Extremity: edema Skin Skin Narrative: no purulence, no erythema, no streaking, no odor, no infection. Adjacent skin is atrophic. ulcer all w/ granular bases and no infection. 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: Status: Chronic Code(s): L97.912 - Non-pressure chronic ulcer of unspecified part of right lower leg with fat layer exposed (2) Localized edema: Status: Chronic Code(s): R60.0 - Localized edema (3) Difficulty walking: Status: Chronic Code(s): R26.2 - Difficulty in walking, not elsewhere classified (4) Delayed wound healing: Status: Chronic Code(s): T14.8XXD - Other injury of unspecified body region, subsequent encounter (5) Type 2 diabetes mellitus with diabetic polyneuropathy: Status: Chronic Code(s): E11.42 - Type 2 diabetes mellitus with diabetic polyneuropathy Qualifiers: Qualified Code(s): Z79.4 - group home (current) use of insulin (6) Non-pressure chronic ulcer of other part of left foot with fat layer exposed: Status: Chronic Code(s): L97.522 - Non-pressure chronic ulcer of other part of left foot with fat layer exposed Plan: Procedure- Location: plantar left foot, medial ankle Excisional debridement performed Anesthesia: 5% lidocaine plain Debridement layer: subcutaneous Amount of debridement: 100% Instrumentation used: 15 blade Tissue debrided: fibrous, devitalized subcutaneous, biofilm, slough Exposed tissue: fat layer Bleeding: mild Hemostasis controlled: pressure The patient tolerated the procedure well Procedure- Location: right leg Excisional debridement performed Anesthesia: 5% lidocaine plain Debridement layer: subcutaneous Amount of debridement: 30% Instrumentation used: 15 blade Tissue debrided: fibrous, devitalized subcutaneous, biofilm, slough Exposed tissue: fat layer Bleeding: mild Hemostasis controlled: pressure The patient tolerated the procedure well Assessment: Left plantar medial foot ulcer, Mancilla Grade 3 - stable. Right leg ulcer cluster, grade 1. Right medial ankle cluster, grade 1. Morbid obesity. Diabetes type 2 with complications. Walking difficulty and impairment. Delayed healing Plan: I reviewed and discussed his case. Subcutaneous excisional debridement was performed as noted in the clinical panel to the left foot and the right ankle and leg (pre and post measurements included in nursing documentation). He had a left total contact cast applied last week. Edema noted and has been addressed. To elevate and reduce salt intake. To continue with Tubigrip compression garments. I recommend application of advanced wound healing product to the left foot. Prior authorization was confirmed. The indications, benefits, anticipated application and healing time management were reviewed in detail. Verbal consent was obtained in the procedure for today. Epi fix was applied according to standard protocol and was further secured with a wound veil and Steri-Strips to the left foot. He tolerated this well. Hydrogel was applied to other wound sites of the right medial ankle and leg cluster; to change daily. The application of advanced wound healing product is medically necessary for limb salvage. He has tried other conservative care without healed status. Verbal consent was applied for a total contact cast to the left lower extremity. This was applied according to standard protocol in a rectus well padded manner. He tolerated this well. He was advised to keep this clean, dry, intact until follow up next week. I discussed the need for serious offloading for limb salvage purposes. He has tried various shoes and walking boots. He has struggled with the use of such as a walker of a knee roller and has impaired gait. An electric wheelchair (extra width) is also an option and at this time I recommend this. This is medically necessary due to his bilateral lower extremity non weightbearing status, he lives alone and does not have assistance, he is a fall risk, and prolonged delayed wound healing is limb and life threatening. Updated prescription was provided today. His noninvasive vascular studies were reviewed from 05-04-2020 which were normal and intervention was previously not recommended. I advised him to follow-up with all of Dr. Bonilla's recommendations to optimize his healing process. He has for help scheduling this because he has not been able to do this. He has recently been seen and intervention is planned for arterial optimization. An updated bilateral duplex was also recommended to help with planning. He relates additional intervention is not recommended. To continue to work on decreasing glucose levels. He has a history of hyperglycemia. To continue follow-up with primary care physician. To continue to follow-up with nutritional services. To continue to follow-up as advised. He is currently making adjustments with his nutritional habits. He also follows up with photographic reproduction technician, Dr. Arteaga, who is working with him to reduce his hemoglobin A1c with medication and behavioral changes. Smoking cessation was discussed in detail and he was advised on the healing impairment associated with this. To continue with his smoking cessation program. He denies current tobacco use. I also recommend discontinuation of nicotine products for this also contributes to small vessel contraction. I answered all of his questions today. To return to clinic in 1 week or call sooner if questions, concerns, or progressive worsening. Note: [employer] speech recognition supervisor ornamental ironworking software was used to create portions of this document. Sound-alike and misspelled words, as well as other supervisor ornamental ironworking errors may be contained in the documentation. Mac 21: Medications and allergies reviewed and reconciled.
== END 2021-01-19 23:59 ==
LOC: WC 09:45
PROVIDERS: PCP Family Medicine Geriatric Medicine; Referring Provider Podiatrist; Visit Provider Podiatrist
DX: E11.621 Type 2 diabetes mellitus with foot ulcer (principal); L97.512 Non-pressure chronic ulcer of other part of right foot with fat layer exposed; L97.912 Non-pressure chronic ulcer of unspecified part of right lower leg with fat layer exposed; T14.8XXD Other injury of unspecified body region, subsequent encounter; L97.522 Non-pressure chronic ulcer of other part of left foot with fat layer exposed; R60.0 Localized edema; R26.2 Difficulty in walking, not elsewhere classified; E11.42 Type 2 diabetes mellitus with diabetic polyneuropathy; E66.01 Morbid (severe) obesity due to excess calories; Z79.4 Long term (current) use of insulin; Z68.41 Body mass index [BMI] 40.0-44.9, adult
CPT/HCPCS: 11042; 15275; 29445; Q4186

== ENCOUNTER → 2021-01-22 15:07 | Outpatient (CLI) | payer MEDICARE, MEDICAID, SELFPAY ==
[2021-01-17 09:53] VITALS: BMI 48.5
--- NOTE | 2021-01-22 15:15 | RAD_ITS ---
STUDY: X-RAY - LEFT KNEE REASON FOR EXAM: Male, 65 years old. KNEE PAIN TECHNIQUE: 4 view(s) of the knee. COMPARISON: None. FINDINGS: No acute fracture, dislocation or osseous destruction. Moderate medial compartment joint space. Mild lateral compartments joint space narrowing. Quadriceps enthesophyte. Mild soft tissue swelling. Trace joint effusion. RAD/Knee 4 or More Views IMPRESSION: Left knee intact with degenerative changes, as above Mild soft tissue swelling with trace joint effusion Electronically Signed: Roni Le DO at 10:10 EDT Tel , Service support ,
== END ==
PROVIDERS: PCP Family Medicine Geriatric Medicine; Referring Provider Family Medicine Geriatric Medicine; Visit Provider Family Medicine Geriatric Medicine
DX: M25.569 Pain in unspecified knee (principal)
CPT/HCPCS: 73564

== ENCOUNTER → 2021-02-06 13:49 | Outpatient (CLI) | payer MEDICARE, MEDICAID, SELFPAY ==
[2021-01-31 13:54] VITALS: BMI 48.5
--- NOTE | 2021-02-06 13:51 | RAD_ITS ---
STUDY: X-RAY - LEFT FOOT CLINICAL: Male, 65 years old. Nonhealing ulcer TECHNIQUE: 3 view(s) of the foot. COMPARISON: 08/21/2020 FINDINGS: Stable calcaneal spurs There is no evidence of active bone destruction of the tarsal bones of the hindfoot or midfoot. Normal visualized subtalar, talonavicular, calcaneocuboid, tarsal and tarsometatarsal articulations. There is transmetatarsal amputation of the first through fifth proximal metatarsal diaphyses without evidence of active bone destruction. There is soft tissue swelling at the amputation stump. RAD/Foot min 3 Views IMPRESSION: Metatarsal amputations without demonstrated active bone destruction Electronically Signed: Eugenio Lynch MD at 14:10 EDT , Service support ,
== END ==
PROVIDERS: PCP Family Medicine Geriatric Medicine; Referring Provider Podiatrist; Visit Provider Podiatrist
DX: L97.522 Non-pressure chronic ulcer of other part of left foot with fat layer exposed (principal)
CPT/HCPCS: 73630

== ENCOUNTER 2021-02-14 08:45 | Outpatient (RCR) | payer MEDICARE, SELFPAY ==
[2021-01-20 00:31] VITALS: BP 153/80; PULSE 98; RESP 22; TEMP 37
[2021-01-24 13:29] VITALS: BP 153/63; PULSE 82; RESP 18; TEMP 36.3; BMI 48.5
--- NOTE | 2021-01-24 16:30 | PN.PCM_ITS ---
History of Present Illness Date of Service: 01/24/21 Chief Complaint: Diabetic left foot ulceration, Mancilla Grade 3 right leg ulcers right medial ankle ulcer left chronic foot ulcer History of Wound: This 65-year-old male with multiple comorbidities was seen today for left foot ulcer that is very chronic. He was also seen for right leg and medial ankle ulcers. He denies diarrhea,fever, chill, nausea, vomiting. He denies redness or odor. He denies calf pain. He continues to struggle with edema management, smoking cessation, nutrition, and maintaining reduced weightbearing activity. He denies new injuries. He has done well with epi fix applications to the left foot so far. He requests a break from the total contact cast this upcoming week. He is trying to get approved for an electric wheelchair. 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 Subcutaneous excisional debr idement was performed as noted in the clinical panel to the left foot and the right ankle and leg.? He had a left total contact cast applied last week and did well. This was not applied today and he will consider it again next week. Edema noted and has been addressed.? To elevate and reduce salt intake.? To continue with Tubigrip compression garments. I recommend application of advanced wound healing product to the left foot.? Prior authorization was confirmed.? The indications, benefits, anticipated application and healing time management were reviewed in detail.? Verbal consent was obtained in the procedure for today.? Epi fix was applied according to standard protocol and was further secured with a wound veil and Steri-Strips to the left foot. ? He tolerated this well. Hydrogel was applied to other wound sites of the right medial ankle and leg cluster; to change daily.? The application of advanced wound healing product is medically necessary for limb salvage.? He has tried other conservative care without healed status. To wash limbs with soap and water. To avoid soaking activities. I discussed the need for serious offloading for limb salvage purposes.? He has tried various shoes and walking boots.? He has struggled with the use of such as a walker of a knee roller and has impaired gait.? An electric wheelchair (extra width) is also an option and at this time I recommend this.? This is medically necessary due to his bilateral lower extremity non weightbearing status, he lives alone and does not have assistance, he is a fall risk, and prolonged delayed wound healing is limb and life threatening. Updated prescription was provided again at previous visit. His noninvasive vascular studies were reviewed from 05-04-2020 which were normal and intervention was previously not recommended.? I advised him to follow-up with all of Dr. Bonilla's recommendations to optimize his healing process.? He has for help scheduling this because he has not been able to do this.? He has recently been seen and intervention is planned for arterial optimization.? An updated bilateral duplex was also recommended to help with planning.? He relates additional intervention is not recommended. To continue to work on decreasing glucose levels.? He has a history of hyperglycemia.? To continue follow-up with primary care physician.? To continue to follow-up with nutritional services.? To continue to follow-up as advised.? He is currently making adjustments with his nutritional habits.? He also follows up with foreign exchange services manager, Dr. Arteaga, who is working with him to reduce his hemoglobin A1c with medication and behavioral changes. Smoking cessation was discussed in detail and he was advised on the healing impairment associated with this.? To continue with his smoking cessation program .? He denies current tobacco use. I also recommend discontinuation of nicotine products for this also contributes to small vessel contraction.? ? I answered all of his questions today.? To return to clinic in 1 week or call sooner if questions, concerns, or progressive worsening. ? Note: [employer] speech recognition manager of digital software was used to create portions of this document. Sound-alike and misspelled words, as well as other manager of digital errors may be contained in the documentation. Macra 21: Medications and allergies reviewed and reconciled.? Physical Exam Const alert and oriented x3 General Appearance: cooperative HEENT normocephalic Extremity Extremity Narrative: No calf tenderness Diminished pulses Muscle wasting noted right fifth ray resection. left transmetatarsal amputation General Extremity: edema and no tenderness to palpation of joints or extremities; Negative for cyanosis Skin Skin Narrative: no purulence, no streaking, no odor, no infection. peripheral left foot ulcer callous noted. no maceration or necrosis noted bilateral General Skin Exam: Negative for erythema Neuro Neuro Narrative: lack of normal epicritic sensation via light touch is consistent with neuropathy status Psych cooperative and affect normal Debridement Note Debridement Note Post-Debridement Measurements and Additional Note: Pre debridement measurements Right leg cluster (30% skin discontinuity: 8.9x2.9 x 0.1 cm), right medial ankle (0.9 x 0.4 x 0.x1 cm), and left plantar foot 1.7 x 1.9 x 0.2 cm) Post-Debridement Measurements/Treatment WC - Nurse 2 - General Ulcer CM Notes Start: 01/24/21 13:29 Freq: Status: Active Protocol: Activity Type Activity Date Activity User E-Sign Co-Sign Detail Recorded Client Recorded Date Recorded By Document 01/24/21 14:05 CASSY [id number] 01/24/21 14:09 CASSY 01/24/21 14:05 [facility] Nurse 2 18-right medial ankle -Time 14:05 -Correct Patient Yes -Correct Side, Site, Position Yes -Correct Procedure Yes -Procedure Performed Yes -Type of Procedure Debridement -Clinical Debridement Subcutaneous -Tissue Removed Subcutaneous -Post Debridement (cm) - Length 1 -Post Debridement (cm) - Width 0.5 -Post Debridement (cm) - Depth 0.1 -Total Square (Post) (cm) 0.5 -Area of Debridement (cm) - Length 1 -Area of Debridement (cm) - Width 0.5 -Total Square (Area) (cm) 0.5 -Tunneling No -Undermining/Tunneling No -Circular Undermining No -Wound/Ulcer Outcome Not Healed -Ulcer Cleansing Rinsed/ Irrigated with Saline -Foul Odor after Cleansing No -Bioengineered Tissue No -Bleeding Controlled with Pressure -Offloading No -Treatment Response Procedure Tolerated Well -Debridement - Subq, 1st 20sq cm Yes -Debridement, SubQ, ea addt'l 20sq cm 1 or part thereof #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 -Time 14:06 -Correct Patient Yes -Correct Side, Site, Position Yes -Correct Procedure Yes -Procedure Performed Yes -Type of Procedure Debridement -Clinical Debridement Subcutaneous -Tissue Removed Subcutaneous -Post Debridement (cm) - Length 9 -Post Debridement (cm) - Width 3 -Post Debridement (cm) - Depth 0.1 -Total Square (Post) (cm) 27 -Area of Debridement (cm) - Length 9 -Area of Debridement (cm) - Width 3 -Total Square (Area) (cm) 27 -Tunneling No -Undermining/Tunneling No -Circular Undermining No -Wound/Ulcer Outcome Not Healed -Ulcer Cleansing Rinsed/ Irrigated with Saline -Foul Odor after Cleansing No -Bioengineered Tissue No -Bleeding Controlled with Pressure -Offloading No -Treatment Response Procedure Tolerated Well -Debridement - Subq, 1st 20sq cm No #13 LEFT MEDIAL PLANTAR -Time 14:07 -Correct Patient Yes -Correct Side, Site, Position Yes -Correct Procedure Yes -Procedure Performed Yes -Type of Procedure Debridement -Clinical Debridement Subcutaneous -Tissue Removed Subcutaneous -Post Debridement (cm) - Length 1.8 -Post Debridement (cm) - Width 2 -Post Debridement (cm) - Depth 0.2 -Total Square (Post) (cm) 3.6 -Area of Debridement (cm) - Length 1.8 -Area of Debridement (cm) - Width 2 -Total Square (Area) (cm) 3.6 -Tunneling No -Undermining/Tunneling No -Circular Undermining No -Wound/Ulcer Outcome Not Healed -Ulcer Cleansing Rinsed/ Irrigated with Saline -Foul Odor after Cleansing No -Bioengineered Tissue Yes -Type of Bioengineered Tissue Epifix -Expiration Date 09/22/25 -Product Lot Number [id number] -Percent Used 100 -Lot number of Saline Used [id number] -Bleeding Controlled with Pressure -Offloading Yes -Type of Offloading Camwalker -Treatment Response Procedure Tolerated Well -Debridement - Subq, 1st 20sq cm No -Apply Skin Sub - 1st 25 sq cm - Feet 1 -Epifix (per sq cm) 4 Pain Scale: 0-10 Numeric Is Patient Pain Free? Yes - Nurse 3 - General Ulcer D/C NN Start: 01/24/21 13:29 Freq: Status: Active Protocol: Activity Type Activity Date Activity User E-Sign Co-Sign Detail Recorded Client Recorded Date Recorded By Document 01/24/21 14:29 DL [id number] 01/24/21 14:30 DL 01/24/21 14:29 Wound Care Nurse 3 18-right medial ankle -Ulcer Cleansing Rinsed/ Irrigated with Saline -Foul Odor after Cleansing No -Primary Dressing Applied NonAdherent Contact Layer -Other Dressing hydrogel -Primary Dressing Covered/Secured with Dry Gauze & Roll Gauze, Secured with Tape #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 -Ulcer Cleansing Rinsed/ Irrigated with Saline -Foul Odor after Cleansing No -Primary Dressing Applied NonAdherent Contact Layer -Other Dressing hydrogel -Primary Dressing Covered/Secured with Dry Gauze & Roll Gauze, Secured with Tape #13 LEFT MEDIAL PLANTAR -Foul Odor after Cleansing No -Other Dressing Epifix -Primary Dressing Covered/Secured with Dry Gauze & Roll Gauze, Secured with Tape Treatment Response Procedure Tolerated Well Pain Scale: 0-10 Numeric Is Patient Pain Free? Yes WC - Visit Discharge Discharge Condition Stable Ambulatory Status Ambulatory Transportation Private Auto Wound debrided: right leg and right medial ankle Wound Grade/Stage: 1 Type of Debridement: Excisional debridement Anesthesia Used: 4% Lidocaine Solution Depth: in the subcutaneous layer Percentage of wound debrided: 100 ((medial ankle)) and 30 (leg cluster) Instrument Used: #15 blade Tissue Removed: fibrous, devitalized subcutaneous, biofilm, slough Severity: Fat Layer Exposed Amount of bleeding with debridement: Mild Bleeding Controlled with: Pressure Patient tolerated procedure: Patient tolerated procedure well Additional Wound Wound debrided: plantar foot Laterality: Left Wound Grade/Stage: 3 Type of Debridement: Excisional debridement Anesthesia Used: 4% Lidocaine Solution Depth: in the subcutaneous layer Percentage of wound debrided: 100 Instrument Used: #15 blade Tissue Removed: fibrous, devitalized subcutaneous, biofilm, slough Severity: Fat Layer Exposed Amount of bleeding with debridement: Mild Bleeding Controlled with: Pressure Patient tolerated procedure: Patient tolerated procedure well
[2021-01-31 13:54] VITALS: BP 143/64; PULSE 89; RESP 20; TEMP 36.6; BMI 48.5
--- NOTE | 2021-01-31 16:24 | PCM.WC.PN ---
History of Present Illness Date of Service: 01/31/21 Chief Complaint: Diabetic left foot ulceration, [place] Grade 3 right leg ulcers right medial ankle ulcer left chronic foot ulcer History of Wound: This 65-year-old male with multiple comorbidities was seen today for left foot ulcer that is very chronic. He was also seen for right leg and medial ankle ulcers. He denies diarrhea,fever, chill, nausea, vomiting. He denies redness or odor. He denies calf pain. He is trying to get approved for an electric wheelchair. He has been having left knee pain in which she is following up with his primary care physician. Therefore he took a break from the total contact cast. Home health been changing his dressing and he reports the epi fix was no longer present this past Friday. 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 Subcutaneous excisional debridement was performed as noted in the clinical panel to the left foot and the right ankle and leg.? Edema noted and has been addressed.? To elevate and reduce salt intake.? To continue with Tubigrip compression garments. I recommend application of advanced wound healing product to the left foot.? Prior authorization was confirmed.? The indications, benefits, anticipated application and healing time management were reviewed in detail.? Verbal consent was obtained in the procedure for today.? Epi fix was applied according to standard protocol and was further secured with a wound veil and Steri-Strips to the left foot. ? He tolerated this well. Hydrogel was applied to other wound sites of the right medial ankle and leg cluster; to change daily.? The application of advanced wound healing product is medically necessary for limb salvage.? He has tried other conservative care without healed status. To wash limbs with soap and water. To avoid soaking activities. I discussed the need for serious offloading for limb salvage purposes.? He has tried various shoes and walking boots.? He has struggled with the use of such as a walker of a knee roller and has impaired gait.? An electric wheelchair (extra width) is also an option and at this time I recommend this.? This is medically necessary due to his bilateral lower extremity non weightbearing status, he lives alone and does not have assistance, he is a fall risk, and prolonged delayed wound healing is limb and life threatening. Updated prescription was provided again at previous visit. A left lower extremity total contact cast was applied after verbal consent was obtained. The benefits, indication, anticipated use were reviewed. This was applied according to standard protocol in a well-padded manner neutral position. He tolerated this well. He was advised keep this clean, dry, and intact until follow-up next week. His noninvasive vascular studies were reviewed from 05-04-2020 which were normal and intervention was previously not recommended.? Urine he had bilateral arterial duplex and was advised to follow-up 1 year for updated exam. I reviewed Dr. Bonilla's note from June 14, 2020. To continue to work on decreasing glucose levels.? He has a history of hyperglycemia.? To continue follow-up with primary care physician.? To continue to follow-up with nutritional services.? To continue to follow-up as advised.? He is currently making adjustments with his nutritional habits.? He also follows up with scrap hooker, Dr. Arteaga, who is working with him to reduce his hemoglobin A1c with medication and behavioral changes. Smoking cessation was discussed in detail and he was advised on the healing impairment associated with this.? To continue with his smoking cessation program.? He denies current tobacco use. I also recommend discontinuation of nicotine products for this also contributes to small vessel contraction.? ? I answered all of his questions today.? To return to clinic in 1 week or call sooner if questions, concerns, or progressive worsening. ? Note: [employer] speech recognition physical therapist aide software was used to create portions of this document. Sound-alike and misspelled words, as well as other physical therapist aide errors may be contained in the documentation. Macra 21: Medications and allergies reviewed and reconciled.? Physical Exam Const alert and oriented x3 General Appearance: cooperative HEENT normocephalic Extremity Extremity Narrative: No calf tenderness Diminished pulses Muscle wasting noted right fifth ray resection. left transmetatarsal amputation General Extremity: edema and no tenderness to palpation of joints or extremities; Negative for cyanosis Skin Skin Narrative: no purulence, no streaking, no odor, no infection. peripheral left foot ulcer callous noted. no maceration or necrosis noted bilateral General Skin Exam: Negative for erythema Neuro Neuro Narrative: lack of normal epicritic sensation via light touch is consistent with neuropathy status Psych cooperative and affect normal Debridement Note Debridement Note Post-Debridement Measurements and Additional Note: Post-Debridement Measurements/Treatment - Nurse 1 - General Ulcer Assessment Start: 01/24/21 13:29 Freq: Status: Active Protocol: MARIA ESTHER Activity Type Activity Date Activity User E-Sign Co-Sign Detail Recorded Client Recorded Date Recorded By Document 01/24/21 13:29 [facility] [id number] 01/24/21 13:41 [facility] Document 01/31/21 13:54 DL [id number] 01/31/21 14:04 DL 01/24/21 01/31/21 13:29 13:54 - Today's Visit Information Type of service Follow-up Visit Follow-up Visit (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 (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 ) ) Arrival Mode Ambulatory,Cane Ambulatory Transfer Assistance None None Patient Identification Verified (Name & Yes Yes ) Patient Requires Transmission-Based No No Precautions Finger Stick Blood Sugar(mg/dl) (if [phone] indicated): Blood Sugar Stated by Stated by Patient Patient Height and Weight Body Mass Index (BMI) 48.5 48.5 BMI Classification Obese Obese Vital Signs Temperature (97.8 F-99.1 F) 97.3 F L 97.9 F Temperature Source Temporal Temporal Pulse Rate (60-100) 82 89 Pulse Location Monitor Monitor Respiratory Rate (12-18) 18 20 H Respiratory rate source Observation Oxygen Delivery Method Room Air Blood Pressure (90/60-120/80) 153/63 H 143/64 H Blood Pressure Mean (mm Hg) 93 90 Source Monitor Monitor Position Sitting Blood Pressure Location Left Arm History Since Last Visit- (Skip if this is Patient's initial visit) Have you changed medications since your No No last visit? Any new allergies or adverse reactions No No Had a fall/change in ADL's that may No No increase risk of falls Signs or symptoms of abuse and/or No No neglect since last visit Have you been in the hospital since your No No last visit? Has dressing in place as prescribed Yes Yes Has compression in place as prescribed N/A No Has offloadiing in place as prescribed Yes Yes Experienced any changes in pain level or No No management Left Footwear Total Contact Custom Shoe Cast Right Footwear Regular Shoe Surgical Shoe with pressure relief insole Pain Scale: 0-10 Numeric Is Patient Pain Free? Yes Yes WC - Nurse 1 - General Ulcer Measurement Start: 01/24/21 13:29 Freq: Status: Active Protocol: Activity Type Activity Date Activity User E-Sign Co-Sign Detail Recorded Client Recorded Date Recorded By Document 01/24/21 13:29 [facility] [id number] 01/24/21 13:41 [facility] Document 01/31/21 13:54 DL [id number] 01/31/21 14:04 DL 01/24/21 01/31/21 13:29 13:54 Wound Center Nurse 1 18-right medial ankle -Combined with other wound No -Current Size (cm) - Length 0.9 0.3 -Current Size (cm) - Width 0.4 0.2 -Current Size (cm) - Depth 0.2 0.1 -Total Square Cm 0.36 0.06 -Photo Taken No No -Epithelialization None Present -Tunneling No -Undermining/Tunneling No -Circular Undermining No -Exudate Amt Small None Present -Exudate Type Serosanguineous -Wound Margin Distinct, Distinct, Outline Outline Attached Attached -Granulation Amt Small (1-33%) Small (1-33%) -Granulation Quality Red [place] -Slough/Fibrin Yes -Necrosis Amt Medium (34-66%) Small (1-33%) -Necrotic Tissue Type Adherent Slough Adherent Slough -Structure Exposed N/A -Texture (Maria M-wound Skin Appearance) Assessed, Scarring Scarring -Moisture (Maria M-wound Skin Appearance) Assessed,Dry/ Dry/Scaly Scaly -Color (Maria M-wound Skin Appearance) Assessed Mottled -Temperature (Maria M-wound Skin No Abnormality No Abnormality Appearance) (Pt Warm) (Pt Warm) -Tenderness on Palpation (Maria M-wound No No Skin Appearance) -Ulcer Cleansing soapy water Wound Cleanser -Foul Odor after Cleansing No No -Anesthetic Used 4% Lidocaine 5% Lidocaine Solution Gel #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 -Combined with other wound No -Current Size (cm) - Length 10.6 3.2 -Current Size (cm) - Width 8.4 4.8 -Current Size (cm) - Depth 0.1 0.1 -Total Square Cm 89.04 15.36 -Photo Taken No No -Epithelialization None Present -Tunneling No -Undermining/Tunneling No -Circular Undermining No -Exudate Amt None Present Small -Exudate Type Yellow/Green -Wound Margin Distinct, Distinct, Outline Outline Attached Attached -Granulation Amt None Present (0 Small (1-33%) %) -Granulation Quality [place] -Slough/Fibrin Yes -Necrosis Amt Large (67-100%) Large (67-100%) -Necrotic Tissue Type Eschar -Structure Exposed Tendon,N/A -Texture (Maria M-wound Skin Appearance) Assessed, Scarring Scarring -Moisture (Maria M-wound Skin Appearance) Assessed No Abnormality -Color (Maria M-wound Skin Appearance) Assessed Hemosiderin Staining -Temperature (Maria M-wound Skin No Abnormality No Abnormality Appearance) (Pt Warm) (Pt Warm) -Tenderness on Palpation (Maria M-wound No No Skin Appearance) -Ulcer Cleansing soapy water Wound Cleanser -Foul Odor after Cleansing No No -Anesthetic Used 4% Lidocaine 5% Lidocaine Solution Gel #13 LEFT MEDIAL PLANTAR -Combined with other wound No -Current Size (cm) - Length 1.7 2 -Current Size (cm) - Width 2 2.6 -Current Size (cm) - Depth 0.2 0.6 -Total Square Cm 3.4 5.2 -Photo Taken No No -Epithelialization None Present -Tunneling No -Undermining/Tunneling Yes -Undermining/Tunneling Starts (O'clock 12 ) -Undermining/Tunneling Ends (O'clock) 1 -Maximum Distance (cm) 0.4 -Circular Undermining No -Exudate Amt Large Medium -Exudate Type Serosanguineous Serosanguineous -Wound Margin Distinct, Thickened Outline Attached -Granulation Amt Large (67-100%) Large (67-100%) -Granulation Quality [place] Red -Slough/Fibrin Yes -Necrosis Amt Small (1-33%) Small (1-33%) -Necrotic Tissue Type Adherent Slough Adherent Slough -Structure Exposed N/A -Texture (Maria M-wound Skin Appearance) Assessed,Callus Callus,Scarring ,Scarring -Moisture (Maria M-wound Skin Appearance) Assessed,Dry/ Dry/Scaly Scaly -Color (Maria M-wound Skin Appearance) Assessed Hemosiderin Staining -Temperature (Maria M-wound Skin No Abnormality No Abnormality Appearance) (Pt Warm) (Pt Warm) -Tenderness on Palpation (Maria M-wound No No Skin Appearance) -Ulcer Cleansing soapy water Wound Cleanser -Foul Odor after Cleansing No -Anesthetic Used 4% Lidocaine 5% Lidocaine Solution Gel Lower Limb Edema Present Yes Right Calf (cm) 47.8 43.5 Right Ankle (cm) 26.6 24 Left Calf (cm) 47.6 43.2 Left Ankle (cm) 28.7 27.4 WC - Nurse 2 - General Ulcer CM Notes Start: 01/24/21 13:29 Freq: Status: Active Protocol: Activity Type Activity Date Activity User E-Sign Co-Sign Detail Recorded Client Recorded Date Recorded By Document 01/24/21 14:05 [id number] 01/24/21 14:09 Document 01/31/21 14:41 [id number] 01/31/21 14:52 01/24/21 01/31/21 14:05 14:41 Wound Center Nurse 2 18-right medial ankle -Time 14:05 14:42 -Correct Patient Yes Yes -Correct Side, Site, Position Yes Yes -Correct Procedure Yes Yes -Procedure Performed Yes Yes -Type of Procedure Debridement Debridement -Clinical Debridement Subcutaneous Subcutaneous -Tissue Removed Subcutaneous Subcutaneous -Post Debridement (cm) - Length 1 0.3 -Post Debridement (cm) - Width 0.5 0.3 -Post Debridement (cm) - Depth 0.1 0.1 -Total Square (Post) (cm) 0.5 0.09 -Area of Debridement (cm) - Length 1 0.3 -Area of Debridement (cm) - Width 0.5 0.3 -Total Square (Area) (cm) 0.5 0.09 -Tunneling No No -Undermining/Tunneling No No -Circular Undermining No No -Wound/Ulcer Outcome Not Healed Not Healed -Ulcer Cleansing Rinsed/ Rinsed/ Irrigated with Irrigated with Saline Saline -Foul Odor after Cleansing No No -Bioengineered Tissue No No -Bleeding Controlled with Pressure Pressure -Offloading No No -Type of Offloading Knee Walker -Treatment Response Procedure Tolerated Well -Debridement - Subq, 1st 20sq cm Yes Yes -Debridement, SubQ, ea addt'l 20sq cm 1 or part thereof #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 -Time 14:06 14:43 -Correct Patient Yes Yes -Correct Side, Site, Position Yes Yes -Correct Procedure Yes Yes -Procedure Performed Yes Yes -Type of Procedure Debridement Debridement -Clinical Debridement Subcutaneous Subcutaneous -Tissue Removed Subcutaneous Subcutaneous -Post Debridement (cm) - Length 9 3.2 -Post Debridement (cm) - Width 3 4.9 -Post Debridement (cm) - Depth 0.1 0.1 -Total Square (Post) (cm) 27 15.68 -Area of Debridement (cm) - Length 9 3.2 -Area of Debridement (cm) - Width 3 4.9 -Total Square (Area) (cm) 27 15.68 -Tunneling No No -Undermining/Tunneling No No -Circular Undermining No No -Wound/Ulcer Outcome Not Healed Not Healed -Ulcer Cleansing Rinsed/ Rinsed/ Irrigated with Irrigated with Saline Saline -Foul Odor after Cleansing No No -Bioengineered Tissue No No -Bleeding Controlled with Pressure Pressure -Offloading No No -Type of Offloading Knee Walker -Treatment Response Procedure Tolerated Well -Debridement - Subq, 1st 20sq cm No No #13 LEFT MEDIAL PLANTAR -Time 14:07 14:44 -Correct Patient Yes Yes -Correct Side, Site, Position Yes Yes -Correct Procedure Yes Yes -Procedure Performed Yes Yes -Type of Procedure Debridement Debridement -Clinical Debridement Subcutaneous Subcutaneous -Tissue Removed Subcutaneous Subcutaneous -Post Debridement (cm) - Length 1.8 2.1 -Post Debridement (cm) - Width 2 2.6 -Post Debridement (cm) - Depth 0.2 0.6 -Total Square (Post) (cm) 3.6 5.46 -Area of Debridement (cm) - Length 1.8 2.1 -Area of Debridement (cm) - Width 2 2.6 -Total Square (Area) (cm) 3.6 5.46 -Tunneling No No -Undermining/Tunneling No No -Circular Undermining No No -Wound/Ulcer Outcome Not Healed Not Healed -Ulcer Cleansing Rinsed/ Rinsed/ Irrigated with Irrigated with Saline Saline -Foul Odor after Cleansing No No -Bioengineered Tissue Yes Yes -Type of Bioengineered Tissue Epifix Epifix -Expiration Date 09/22/25 10/23/25 -Product Lot Number [id number] -Percent Used 100 100 -Lot number of Saline Used [id number] -Bleeding Controlled with Pressure Pressure -Offloading Yes Yes -Type of Offloading Camwalker Total Contact Cast (TCC) - Left ($) -Treatment Response Procedure Procedure Tolerated Well Tolerated Well -Debridement - Subq, 1st 20sq cm No No -Apply Skin Sub - 1st 25 sq cm - Feet 1 1 -Epifix (per sq cm) 4 4 Pain Scale: 0-10 Numeric Is Patient Pain Free? Yes Yes WC - Nurse 3 - General Ulcer D/C NN Start: 01/24/21 13:29 Freq: Status: Active Protocol: Activity Type Activity Date Activity User E-Sign Co-Sign Detail Recorded Client Recorded Date Recorded By Document 01/24/21 14:29 DL [id number] 01/24/21 14:30 DL Document 01/31/21 15:10 RB [id number] 01/31/21 15:14 RB 01/24/21 01/31/21 14:29 15:10 Wound Care Nurse 3 18-right medial ankle -Ulcer Cleansing Rinsed/ Irrigated with Saline -Foul Odor after Cleansing No -Primary Dressing Applied NonAdherent NonAdherent Contact Layer Contact Layer -Other Dressing hydrogel hydrogel -Primary Dressing Covered/Secured with Dry Gauze & Dry Gauze,Dry Roll Gauze, Gauze & Roll Secured with Gauze,Secured Tape with Tape #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 -Ulcer Cleansing Rinsed/ Irrigated with Saline -Foul Odor after Cleansing No -Primary Dressing Applied NonAdherent NonAdherent Contact Layer Contact Layer -Other Dressing hydrogel hydrogel -Primary Dressing Covered/Secured with Dry Gauze & Dry Gauze,Dry Roll Gauze, Gauze & Roll Secured with Gauze,Secured Tape with Tape #13 LEFT MEDIAL PLANTAR -Foul Odor after Cleansing No -Other Dressing Epifix -Primary Dressing Covered/Secured with Dry Gauze & Roll Gauze, Secured with Tape -Other Covering primary layer TCC applied Right -Tubular Bandage Single Layer -Size of Tubigrip Used Size E -Size E ($) 1 Treatment Response Procedure Procedure Tolerated Well Tolerated Well Pain Scale: 0-10 Numeric Is Patient Pain Free? Yes WC - Visit Discharge Discharge Condition Stable Stable Ambulatory Status Ambulatory Ambulatory Transportation Private Auto Private Auto Medication Reconcilliation completed & No provided to patient/care provider Clinical Summary of Care Provided Yes Wound debrided: plantar medial foot, left Wound Grade/Stage: 1 Type of Debridement: Excisional debridement Anesthesia Used: 4% Lidocaine Solution Depth: in the subcutaneous layer Percentage of wound debrided: 100 Instrument Used: #15 blade Tissue Removed: fibrous, devitalized subcutaneous, biofilm, slough Severity: Fat Layer Exposed Amount of bleeding with debridement: Mild Bleeding Controlled with: Pressure Patient tolerated procedure: Patient tolerated procedure well
[2021-02-07 15:06] VITALS: BP 144/74; PULSE 104; RESP 20; TEMP 36.2; BMI 48.5
--- NOTE | 2021-02-07 22:25 | PN.PCM_ITS ---
History of Present Illness Date of Service: 02/10/21 Chief Complaint: Diabetic left foot ulceration, [place] Grade 3 right leg ulcers right medial ankle ulcer left chronic foot ulcer History of Wound: This 65-year-old male with multiple comorbidities was seen today for left foot ulcer that is very chronic. He was also seen for right leg and medial ankle ulcers. He denies diarrhea, fever, chill, nausea, vomiting. He denies redness or odor. He denies calf pain. He is trying to get approved for an electric wheelchair. Progress of Wound: right improving left stable Objective Data Objective Data Vital Signs: Vital Signs Temp Pulse Resp BP 97.2 F L 104 H 20 H 144/74 H 02/07/21 15:06 02/07/21 15:06 02/07/21 15:06 02/07/21 15:06 Oxygen Delivery Method Room Air Weight: 147.418 kg Body Mass Index (BMI) 48.5 Physical Exam Const alert and oriented x3 General Appearance: cooperative HEENT normocephalic Extremity Extremity Narrative: No calf tenderness Diminished pulses Muscle wasting noted right fifth ray resection. left transmetatarsal amputation General Extremity: edema and no tenderness to palpation of joints or extremities; Negative for cyanosis Skin Skin Narrative: no purulence, no streaking, no odor, no infection. peripheral left foot ulcer callous noted and excessive. granular bases to all bilateral ulcer sites. no maceration or necrosis noted bilateral General Skin Exam: Negative for erythema Neuro Neuro Narrative: lack of normal epicritic sensation via light touch is con sistent with neuropathy status Psych cooperative and affect normal Debridement Note Debridement Note Post-Debridement Measurements and Additional Note: Post-Debridement Measurements/Treatment - Nurse 1 - General Ulcer Assessment Start: 01/24/21 13:29 Freq: Status: Active Protocol: UZIEL.LOWEXT Activity Type Activity Date Activity User E-Sign Co-Sign Detail Recorded Client Recorded Date Recorded By Document 01/24/21 13:29 [facility] [id number] 01/24/21 13:41 BM Document 01/31/21 13:54 DL [id number] 01/31/21 14:04 DL Document 02/07/21 15:06 [facility] [id number] 02/07/21 15:13 [facility] 01/24/21 01/31/21 02/07/21 13:29 13:54 15:06 WC - Today's Visit Information Type of service Follow-up Visit Follow-up Visit Follow-up Visit (Physician/RESEARCH COORDINATOR (Physician/RESEARCH COORDINATOR (Physician/RESEARCH COORDINATOR ) ) ) Arrival Mode Ambulatory,Cane Ambulatory Ambulatory Transfer Assistance None None None Patient Identification Verified (Name & Yes Yes Yes ) Patient Requires Transmission-Based No No No Precautions Finger Stick Blood Sugar(mg/dl) (if [phone] indicated): Blood Sugar Stated by Stated by Patient Patient Height and Weight Body Mass Index (BMI) 48.5 48.5 48.5 BMI Classification Obese Obese Obese Vital Signs Temperature (97.8 F-99.1 F) 97.3 F L 97.9 F 97.2 F L Temperature Source Temporal Temporal Temporal Pulse Rate (60-100) 82 89 104 H Pulse Location Monitor Monitor Monitor Respiratory Rate (12-18) 18 20 H 20 H Respiratory rate source Observation Observation Oxygen Delivery Method Room Air Room Air Blood Pressure (90/60-120/80) 153/63 H 143/64 H 144/74 H Blood Pressure Mean (mm Hg) 93 90 97 Source Monitor Monitor Monitor Position Sitting Sitting Blood Pressure Location Left Arm Right Arm History Since Last Visit- (Skip if this is Patient's initial visit) Have you changed medications since your No No No last visit? Any new allergies or adverse reactions No No No Had a fall/change in ADL's that may No No No increase risk of falls Signs or symptoms of abuse and/or No No No neglect since last visit Have you been in the hospital since your No No No last visit? Has dressing in place as prescribed Yes Yes Yes Has compression in place as prescribed N/A No No Has offloadiing in place as prescribed Yes Yes Yes Experienced any changes in pain level or No No No management Left Footwear Total Contact Custom Shoe Total Contact Cast Cast Right Footwear Regular Shoe Surgical Shoe Regular Shoe with pressure relief insole Pain Scale: 0-10 Numeric Is Patient Pain Free? Yes Yes Yes WC - Nurse 1 - General Ulcer Measurement Start: 01/24/21 13:29 Freq: Status: Active Protocol: Activity Type Activity Date Activity User E-Sign Co-Sign Detail Recorded Client Recorded Date Recorded By Document 01/24/21 13:29 [facility] [id number] 01/24/21 13:41 BMF Document 01/31/21 13:54 DL [id number] 01/31/21 14:04 DL Document 02/07/21 15:06 [facility] [id number] 02/07/21 15:13 [facility] 01/24/21 01/31/21 02/07/21 13:29 13:54 15:06 Wound Center Nurse 1 18-right medial ankle -Combined with other wound No No -Current Size (cm) - Length 0.9 0.3 0.1 -Current Size (cm) - Width 0.4 0.2 0.1 -Current Size (cm) - Depth 0.2 0.1 0.1 -Total Square Cm 0.36 0.06 0.01 -Photo Taken No No No -Epithelialization None Present Small 1-33% -Tunneling No No -Undermining/Tunneling No No -Circular Undermining No No -Exudate Amt Small None Present None Present -Exudate Type Serosanguineous -Wound Margin Distinct, Distinct, Distinct, Outline Outline Outline Attached Attached Attached -Granulation Amt Small (1-33%) Small (1-33%) None Present (0 %) -Granulation Quality Red [place] -Slough/Fibrin Yes Yes -Necrosis Amt Medium (34-66%) Small (1-33%) Large (67-100%) -Necrotic Tissue Type Adherent Slough Adherent Slough Adherent Slough -Structure Exposed N/A -Texture (Maria M-wound Skin Appearance) Assessed, Scarring Assessed, Scarring Scarring -Moisture (Maria M-wound Skin Appearance) Assessed,Dry/ Dry/Scaly Assessed,Dry/ Scaly Scaly -Color (Maria M-wound Skin Appearance) Assessed Mottled Assessed -Temperature (Maria M-wound Skin No Abnormality No Abnormality No Abnormality Appearance) (Pt Warm) (Pt Warm) (Pt Warm) -Tenderness on Palpation (Maria M-wound No No No Skin Appearance) -Ulcer Cleansing soapy water Wound Cleanser Rinsed/ Irrigated with Saline -Foul Odor after Cleansing No No No -Anesthetic Used 4% Lidocaine 5% Lidocaine 4% Lidocaine Solution Gel 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 -Combined with other wound No No -Current Size (cm) - Length 10.6 3.2 10.5 -Current Size (cm) - Width 8.4 4.8 7.5 -Current Size (cm) - Depth 0.1 0.1 0.1 -Total Square Cm 89.04 15.36 78.75 -Photo Taken No No No -Epithelialization None Present Small 1-33% -Tunneling No No -Undermining/Tunneling No No -Circular Undermining No No -Exudate Amt None Present Small None Present -Exudate Type Yellow/Green -Wound Margin Distinct, Distinct, Distinct, Outline Outline Outline Attached Attached Attached -Granulation Amt None Present (0 Small (1-33%) Large (67-100%) %) -Granulation Quality [place] Red -Slough/Fibrin Yes Yes -Necrosis Amt Large (67-100%) Large (67-100%) Small (1-33%) -Necrotic Tissue Type Eschar Eschar -Structure Exposed Tendon,N/A -Texture (Maria M-wound Skin Appearance) Assessed, Scarring Assessed, Scarring Scarring -Moisture (Maria M-wound Skin Appearance) Assessed No Abnormality Assessed,Dry/ Scaly -Color (Maria M-wound Skin Appearance) Assessed Hemosiderin Assessed Staining -Temperature (Maria M-wound Skin No Abnormality No Abnormality No Abnormality Appearance) (Pt Warm) (Pt Warm) (Pt Warm) -Tenderness on Palpation (Maria M-wound No No No Skin Appearance) -Ulcer Cleansing soapy water Wound Cleanser Rinsed/ Irrigated with Saline -Foul Odor after Cleansing No No No -Anesthetic Used 4% Lidocaine 5% Lidocaine 4% Lidocaine Solution Gel Solution #13 LEFT MEDIAL PLANTAR -Combined with other wound No No -Current Size (cm) - Length 1.7 2 1.9 -Current Size (cm) - Width 2 2.6 2 -Current Size (cm) - Depth 0.2 0.6 0.4 -Total Square Cm 3.4 5.2 3.8 -Photo Taken No No No -Epithelialization None Present None Present -Tunneling No No -Undermining/Tunneling Yes No -Undermining/Tunneling Starts (O'clock 12 ) -Undermining/Tunneling Ends (O'clock) 1 -Maximum Distance (cm) 0.4 -Circular Undermining No No -Exudate Amt Large Medium Large -Exudate Type Serosanguineous Serosanguineous Serosanguineous -Wound Margin Distinct, Thickened Thickened & Outline Rolled Under Attached -Granulation Amt Large (67-100%) Large (67-100%) Large (67-100%) -Granulation Quality [place] Red Pale,Red -Slough/Fibrin Yes Yes -Necrosis Amt Small (1-33%) Small (1-33%) Small (1-33%) -Necrotic Tissue Type Adherent Slough Adherent Slough Adherent Slough -Structure Exposed N/A -Texture (Maria M-wound Skin Appearance) Assessed,Callus Callus,Scarring Assessed,Callus ,Scarring ,Scarring -Moisture (Maria M-wound Skin Appearance) Assessed,Dry/ Dry/Scaly Assessed Scaly -Color (Maria M-wound Skin Appearance) Assessed Hemosiderin Assessed Staining -Temperature (Maria M-wound Skin No Abnormality No Abnormality No Abnormality Appearance) (Pt Warm) (Pt Warm) (Pt Warm) -Tenderness on Palpation (Maria M-wound No No No Skin Appearance) -Ulcer Cleansing soapy water Wound Cleanser soapy water -Foul Odor after Cleansing No No -Anesthetic Used 4% Lidocaine 5% Lidocaine 4% Lidocaine Solution Gel Solution Lower Limb Edema Present Yes Right Calf (cm) 47.8 43.5 Right Ankle (cm) 26.6 24 Left Calf (cm) 47.6 43.2 Left Ankle (cm) 28.7 27.4 WC - Nurse 2 - General Ulcer CM Notes Start: 01/24/21 13:29 Freq: Status: Active Protocol: Activity Type Activity Date Activity User E-Sign Co-Sign Detail Recorded Client Recorded Date Recorded By Document 01/24/21 14:05 [id number] 01/24/21 14:09 Document 01/31/21 14:41 [id number] 01/31/21 14:52 Document 02/07/21 15:37 [id number] 02/07/21 15:49 01/24/21 01/31/21 02/07/21 14:05 14:41 15:37 Wound Center Nurse 2 18-right medial ankle -Time 14:05 14:42 15:39 -Correct Patient Yes Yes Yes -Correct Side, Site, Position Yes Yes Yes -Correct Procedure Yes Yes Yes -Procedure Performed Yes Yes Yes -Type of Procedure Debridement Debridement Debridement -Clinical Debridement Subcutaneous Subcutaneous Subcutaneous -Tissue Removed Subcutaneous Subcutaneous Subcutaneous -Post Debridement (cm) - Length 1 0.3 0.3 -Post Debridement (cm) - Width 0.5 0.3 0.3 -Post Debridement (cm) - Depth 0.1 0.1 0.2 -Total Square (Post) (cm) 0.5 0.09 0.09 -Area of Debridement (cm) - Length 1 0.3 0.3 -Area of Debridement (cm) - Width 0.5 0.3 0.2 -Total Square (Area) (cm) 0.5 0.09 0.06 -Tunneling No No No -Undermining/Tunneling No No No -Circular Undermining No No No -Wound/Ulcer Outcome Not Healed Not Healed Not Healed -Ulcer Cleansing Rinsed/ Rinsed/ Rinsed/ Irrigated with Irrigated with Irrigated with Saline Saline Saline -Foul Odor after Cleansing No No No -Bioengineered Tissue No No No -Bleeding Controlled with Pressure Pressure Pressure -Offloading No No No -Type of Offloading Knee Walker -Treatment Response Procedure Procedure Tolerated Well Tolerated Well -Debridement - Subq, 1st 20sq cm Yes Yes Yes -Debridement, SubQ, ea addt'l 20sq cm 1 or part thereof #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 -Time 14:06 14:43 15:39 -Correct Patient Yes Yes Yes -Correct Side, Site, Position Yes Yes Yes -Correct Procedure Yes Yes Yes -Procedure Performed Yes Yes Yes -Type of Procedure Debridement Debridement Debridement -Clinical Debridement Subcutaneous Subcutaneous Subcutaneous -Tissue Removed Subcutaneous Subcutaneous Subcutaneous -Post Debridement (cm) - Length 9 3.2 3 -Post Debridement (cm) - Width 3 4.9 1.5 -Post Debridement (cm) - Depth 0.1 0.1 0.1 -Total Square (Post) (cm) 27 15.68 4.5 -Area of Debridement (cm) - Length 9 3.2 3 -Area of Debridement (cm) - Width 3 4.9 1.5 -Total Square (Area) (cm) 27 15.68 4.5 -Tunneling No No No -Undermining/Tunneling No No No -Circular Undermining No No No -Wound/Ulcer Outcome Not Healed Not Healed Not Healed -Ulcer Cleansing Rinsed/ Rinsed/ Rinsed/ Irrigated with Irrigated with Irrigated with Saline Saline Saline -Foul Odor after Cleansing No No No -Bioengineered Tissue No No No -Bleeding Controlled with Pressure Pressure Pressure -Offloading No No No -Type of Offloading Knee Walker -Treatment Response Procedure Procedure Tolerated Well Tolerated Well -Debridement - Subq, 1st 20sq cm No No No #13 LEFT MEDIAL PLANTAR -Time 14:07 14:44 15:40 -Correct Patient Yes Yes Yes -Correct Side, Site, Position Yes Yes Yes -Correct Procedure Yes Yes Yes -Procedure Performed Yes Yes Yes -Type of Procedure Debridement Debridement Debridement -Clinical Debridement Subcutaneous Subcutaneous Subcutaneous -Tissue Removed Subcutaneous Subcutaneous Subcutaneous -Post Debridement (cm) - Length 1.8 2.1 2 -Post Debridement (cm) - Width 2 2.6 2 -Post Debridement (cm) - Depth 0.2 0.6 0.4 -Total Square (Post) (cm) 3.6 5.46 4 -Area of Debridement (cm) - Length 1.8 2.1 2 -Area of Debridement (cm) - Width 2 2.6 2 -Total Square (Area) (cm) 3.6 5.46 4 -Tunneling No No No -Undermining/Tunneling No No No -Circular Undermining No No No -Wound/Ulcer Outcome Not Healed Not Healed Not Healed -Ulcer Cleansing Rinsed/ Rinsed/ Rinsed/ Irrigated with Irrigated with Irrigated with Saline Saline Saline -Foul Odor after Cleansing No No No -Bioengineered Tissue Yes Yes Yes -Type of Bioengineered Tissue Epifix Epifix Epifix -Expiration Date 09/22/25 10/23/25 10/23/25 -Product Lot Number [id number] -Percent Used 100 100 100 -Lot number of Saline Used [id number] -Bleeding Controlled with Pressure Pressure Pressure -Offloading Yes Yes Yes -Type of Offloading Camwalker Total Contact Total Contact Cast (TCC) - Cast (TCC) - Left ($) Left ($) -Treatment Response Procedure Procedure Procedure Tolerated Well Tolerated Well Tolerated Well -Debridement - Subq, 1st 20sq cm No No No -Apply Skin Sub - 1st 25 sq cm - Feet 1 1 -Apply Skin Sub - each addt'l 25 sq cm 1 - Feet -Epifix (per sq cm) 4 4 4 Pain Scale: 0-10 Numeric Is Patient Pain Free? Yes Yes - Nurse 3 - General Ulcer D/C NN Start: 01/24/21 13:29 Freq: Status: Active Protocol: Activity Type Activity Date Activity User E-Sign Co-Sign Detail Recorded Client Recorded Date Recorded By Document 01/24/21 14:29 DL [id number] 01/24/21 14:30 DL Document 01/31/21 15:10 RB [id number] 01/31/21 15:14 RB Document 02/07/21 15:53 MS [id number] 02/07/21 15:57 MS 01/24/21 01/31/21 02/07/21 14:29 15:10 15:53 Wound Care Nurse 3 18-right medial ankle -Ulcer Cleansing Rinsed/ Irrigated with Saline -Foul Odor after Cleansing No No -Primary Dressing Applied NonAdherent NonAdherent Contact Layer Contact Layer -Other Dressing hydrogel hydrogel hydrogeol, adaptic -Primary Dressing Covered/Secured with Dry Gauze & Dry Gauze,Dry Roll Gauze, Gauze & Roll Secured with Gauze,Secured Tape with Tape #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 -Ulcer Cleansing Rinsed/ Irrigated with Saline -Foul Odor after Cleansing No -Primary Dressing Applied NonAdherent NonAdherent Contact Layer Contact Layer -Other Dressing hydrogel hydrogel hydrogel, adaptic -Primary Dressing Covered/Secured with Dry Gauze & Dry Gauze,Dry Roll Gauze, Gauze & Roll Secured with Gauze,Secured Tape with Tape #13 LEFT MEDIAL PLANTAR -Foul Odor after Cleansing No No -Other Dressing Epifix hydrogel -Primary Dressing Covered/Secured with Dry Gauze & Roll Gauze, Secured with Tape -Other Covering primary layer tcc undercast TCC applied 4 Right -Tubular Bandage Single Layer -Size of Tubigrip Used Size E -Size E ($) 1 Treatment Response Procedure Procedure Tolerated Well Tolerated Well Pain Scale: 0-10 Numeric Is Patient Pain Free? Yes Yes WC - Visit Discharge Discharge Condition Stable Stable Stable Ambulatory Status Ambulatory Ambulatory Ambulatory Transportation Private Auto Private Auto Medication Reconcilliation completed & No No provided to patient/care provider Clinical Summary of Care Provided Yes Yes Wound debrided: right proximal lateral leg and medial ankle Wound Grade/Stage: 1 Type of Debridement: Excisional debridement Anesthesia Used: 4% Lidocaine Solution Depth: in the subcutaneous layer Percentage of wound debrided: 100 Instrument Used: #15 blade Tissue Removed: fibrous, devitalized subcutaneous, biofilm, slough Severity: Fat Layer Exposed Amount of bleeding with debridement: Mild Bleeding Controlled with: Pressure Patient tolerated procedure: Patient tolerated procedure well Assessment/Plan Assessment/Plan (1) 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: CODE(S): Code(s): L97.912 - Non-pressure chronic ulcer of unspecified part of right lower leg with fat layer exposed (2) Ulcer of left lower extremity with fat layer exposed: CODE(S): Code(s): L97.922 - Non-pressure chronic ulcer of unspecified part of left lower leg with fat layer exposed (3) Type 2 diabetes mellitus with diabetic polyneuropathy: CODE(S): Code(s): E11.42 - Type 2 diabetes mellitus with diabetic polyneuropathy QUALIFIERS: Qualified Code(s): Z79.4 - USP (current) use of insulin (4) Debility: CODE(S): Code(s): R53.81 - Other malaise (5) Diabetic polyneuropathy: CODE(S): Code(s): E11.42 - Type 2 diabetes mellitus with diabetic polyneuropathy (6) Localized edema: CODE(S): Code(s): R60.0 - Localized edema (7) Difficulty walking: CODE(S): Code(s): R26.2 - Difficulty in walking, not elsewhere classified (8) Delayed wound healing: CODE(S): Code(s): T14.8XXD - Other injury of unspecified body region, subsequent encounter PLAN: Procedure- Location: plantar left foot grade 3 Excisional debridement performed Anesthesia: 5% lidocaine plain Debridement layer: subcutaneous Amount of debridement: 100% Instrumentation used: 15 blade Tissue debrided: fibrous, devitalized subcutaneous, biofilm, slough Exposed tissue: fat layer Bleeding: mild Hemostasis controlled: pressure The patient tolerated the procedure well I reviewed and discussed his case.? Subcutaneous excisional debridement was performed as noted in the clinical panel to the left foot and the right ankle and leg.? Edema noted and has been addressed.? To elevate and reduce salt intake.? To continue with Tubigrip compression garments. I recommend application of advanced wound healing product to the left foot.? Prior authorization was confirmed.? The indications, benefits, anticipated application and healing time management were reviewed in detail.? Verbal consent was obtained in the procedure for today.? Epi fix was applied according to standard protocol and was further secured with a wound veil and Steri-Strips to the left foot. ? He tolerated this well. Hydrogel was applied to other wound sites of the right medial ankle and leg cluster; to change daily.? The application of advanced wound healing product is medically necessary for limb salvage.? He has tried other conservative care without healed status. Verbal consent was obtained for application of left total contact cast. This was applied according to standard protocol in a rectus position and well-padded manner. He tolerated this well. He was advised to keep this clean, dry, and intact until follow-up next week. To call if the cast gets wet or problematic. To wash limbs with soap and water. To avoid soaking activities. I discussed the need for serious offloading for limb salvage purposes.? He has tried various shoes and walking boots.? He has struggled with the use of such as a walker of a knee roller and has impaired gait.? An electric wheelchair (extra width) is also an option and at this time I recommend this.? This is medically necessary due to his bilateral lower extremity non weightbearing status, he lives alone and does not have assistance, he is a fall risk, and prolonged delayed wound healing is limb and life threatening. Updated prescription was provided again at previous visit. His noninvasive vascular studies were reviewed from 05-04-2020 which were normal and intervention was previously not recommended.? Urine he had bilateral arterial duplex and was advised to follow-up 1 year for updated exam. I reviewed Dr. Bonilla's note from June 14, 2020. To continue to work on decreasing glucose levels.? He has a history of hyperglycemia.? His last A1c was 8.8% in October 2020. To continue follow-up with primary care physician.? To continue to follow-up with nutritional services.? To continue to follow-up as advised.? He is currently making adjustments with his nutritional habits.? He also follows up with endoc rinologist, Dr. Arteaga, who is working with him to reduce his hemoglobin A1c with medication and behavioral changes. Smoking cessation was discussed in detail and he was advised on the healing impairment associated with this.? To continue with his smoking cessation program.? He denies current tobacco use. I also recommend discontinuation of nicotine products for this also contributes to small vessel contraction.? ? He is currently undergoing advanced wound healing product application. If this fails the following options exist: Proceeding with a palliative wound care plan which she follows up every 2 to 4 weeks and the goal is to keep the ulcers noninfected and stable, below-knee amputation, revisional transmetatarsal amputation with rotational skin flap. Prognosis is guarded with ongoing glucose elevation and inability to comply with nonweightbearing standards. I answered all of his questions today.? To return to clinic in 1 week or call sooner if questions, concerns, or progressive worsening. ? Note: [employer] speech recognition admin prog coord software was used to create portions of this document. Sound-alike and misspelled words, as well as other admin prog coord errors may be contained in the documentation.
[2021-02-14 08:55] VITALS: BP 149/71; PULSE 94; RESP 18; TEMP 36.3; BMI 48.5
--- NOTE | 2021-02-14 10:06 | PN.PCM_ITS ---
History of Present Illness Date of Service: 02/14/21 Chief Complaint: Diabetic left foot ulceration, [place] Grade 3 right leg ulcers right medial ankle ulcer left chronic foot ulcer History of Wound: This 65-year-old male with multiple comorbidities was seen today for left foot ulcer that is very chronic. He was also seen for right leg and medial ankle ulcers. He denies diarrhea, fever, chill, nausea, vomiting. He denies redness or odor. He denies calf pain. Progress of Wound: right improving left stable Objective Data Objective Data Vital Signs: Vital Signs Temp Pulse Resp BP 97.3 F L 94 18 149/71 H 02/14/21 08:55 02/14/21 08:55 02/14/21 08:55 02/14/21 08:55 Oxygen Delivery Method Room Air Weight: 147.418 kg Body Mass Index (BMI) 48.5 Physical Exam Const alert and oriented x3 General Appearance: cooperative HEENT normocephalic Extremity Extremity Narrative: No calf tenderness Diminished pulses Muscle wasting noted right fifth ray resection healed. left transmetatarsal amputation General Extremity: edema and no tenderness to palpation of joints or extremities; Negative for cyanosis Skin Skin Narrative: no purulence, no streaking, no odor, no infection. peripheral left foot ulcer callous noted and excessive. granular bases to all bilateral ulcer sites. improved left foot granulation tissue. improved granulation tissue to right leg. subhemorrhagic tissue only to right medial ankle ulcer. no maceration or necrosis noted bilateral General Skin Exam: Negative for erythema Neuro Neuro Narrative: lack of normal epicritic sensation via light touch is consistent with neuropathy status Psych cooperative and affect normal Debridement Note Debridement Note Post-Debridement Measurements and Additional Note: Post-Debridement Measurements/Treatment - Nurse 1 - General Ulcer Assessment Start: 01/24/21 13:29 Freq: Status: Active Protocol: [email or web address].[email or web address] Activity Type Activity Date Activity User E-Sign Co-Sign Detail Recorded Client Recorded Date Recorded By Document 01/24/21 13:29 BMF [id number] 01/24/21 13:41 BMF Document 01/31/21 13:54 DL [id number] 01/31/21 14:04 DL Document 02/07/21 15:06 BMF [id number] 02/07/21 15:13 BMF Document 02/14/21 08:55 RB [id number] 02/14/21 09:11 RB 01/24/21 01/31/21 02/07/21 13:29 13:54 15:06 WC - Today's Visit Information Type of service Follow-up Visit Follow-up Visit Follow-up Visit (Physician/WINDOWS SYSTEMS ADMIN (Physician/WINDOWS SYSTEMS ADMIN (Physician/WINDOWS SYSTEMS ADMIN ) ) ) Arrival Mode Ambulatory,Cane Ambulatory Ambulatory Transfer Assistance None None None Patient Identification Verified (Name & Yes Yes Yes ) Patient Requires Transmission-Based No No No Precautions Finger Stick Blood Sugar(mg/dl) (if 239 222 indicated): Blood Sugar Stated by Stated by Patient Patient Height and Weight Body Mass Index (BMI) 48.5 48.5 48.5 BMI Classification Obese Obese Obese Vital Signs Temperature (97.8 F-99.1 F) 97.3 F L 97.9 F 97.2 F L Temperature Source Temporal Temporal Temporal Pulse Rate (60-100) 82 89 104 H Pulse Location Monitor Monitor Monitor Respiratory Rate (12-18) 18 20 H 20 H Respiratory rate source Observation Observation Oxygen Delivery Method Room Air Room Air Blood Pressure (90/60-120/80) 153/63 H 143/64 H 144/74 H Blood Pressure Mean (mm Hg) 93 90 97 Source Monitor Monitor Monitor Position Sitting Sitting Blood Pressure Location Left Arm Right Arm History Since Last Visit- (Skip if this is Patient's initial visit) Have you changed medications since your No No No last visit? Any new allergies or adverse reactions No No No Had a fall/change in ADL's that may No No No increase risk of falls Signs or symptoms of abuse and/or No No No neglect since last visit Have you been in the hospital since your No No No last visit? Has dressing in place as prescribed Yes Yes Yes Has compression in place as prescribed N/A No No Has offloadiing in place as prescribed Yes Yes Yes Experienced any changes in pain level or No No No management Left Footwear Total Contact Custom Shoe Total Contact Cast Cast Right Footwear Regular Shoe Surgical Shoe Regular Shoe with pressure relief insole Pain Scale: 0-10 Numeric Is Patient Pain Free? Yes Yes Yes 02/14/21 08:55 - Today's Visit Information Type of service Follow-up Visit (Physician/WINDOWS SYSTEMS ADMIN ) Arrival Mode Ambulatory Transfer Assistance None Patient Identification Verified (Name & Yes ) Patient Requires Transmission-Based No Precautions Finger Stick Blood Sugar(mg/dl) (if indicated): Blood Sugar Height and Weight Body Mass Index (BMI) 48.5 BMI Classification Obese Vital Signs Temperature (97.8 F-99.1 F) 97.3 F L Temperature Source Temporal Pulse Rate (60-100) 94 Pulse Location Monitor Respiratory Rate (12-18) 18 Respiratory rate source Observation Oxygen Delivery Method Blood Pressure (90/60-120/80) 149/71 H Blood Pressure Mean (mm Hg) 97 Source Monitor Position Semi-Fowlers Blood Pressure Location Left Arm History Since Last Visit- (Skip if this is Patient's initial visit) Have you changed medications since your No last visit? Any new allergies or adverse reactions No Had a fall/change in ADL's that may No increase risk of falls Signs or symptoms of abuse and/or No neglect since last visit Have you been in the hospital since your No last visit? Has dressing in place as prescribed Yes Has compression in place as prescribed No Has offloadiing in place as prescribed Yes Experienced any changes in pain level or No management Left Footwear Total Contact Cast Right Footwear Regular Shoe Pain Scale: 0-10 Numeric Is Patient Pain Free? Yes WC - Nurse 1 - General Ulcer Measurement Start: 01/24/21 13:29 Freq: Status: Active Protocol: Activity Type Activity Date Activity User E-Sign Co-Sign Detail Recorded Client Recorded Date Recorded By Document 01/24/21 13:29 [facility] [id number] 01/24/21 13:41 [facility] Document 01/31/21 13:54 DL [id number] 01/31/21 14:04 DL Document 02/07/21 15:06 [facility] [id number] 02/07/21 15:13 [facility] Document 02/14/21 08:55 RB [id number] 02/14/21 09:11 RB 01/24/21 01/31/21 02/07/21 13:29 13:54 15:06 Wound Center Nurse 1 18-right medial ankle -Combined with other wound No No -Current Size (cm) - Length 0.9 0.3 0.1 -Current Size (cm) - Width 0.4 0.2 0.1 -Current Size (cm) - Depth 0.2 0.1 0.1 -Total Square Cm 0.36 0.06 0.01 -Photo Taken No No No -Epithelialization None Present Small 1-33% -Tunneling No No -Undermining/Tunneling No No -Circular Undermining No No -Exudate Amt Small None Present None Present -Exudate Type Serosanguineous -Wound Margin Distinct, Distinct, Distinct, Outline Outline Outline Attached Attached Attached -Granulation Amt Small (1-33%) Small (1-33%) None Present (0 %) -Granulation Quality Red [place] -Slough/Fibrin Yes Yes -Necrosis Amt Medium (34-66%) Small (1-33%) Large (67-100%) -Necrotic Tissue Type Adherent Slough Adherent Slough Adherent Slough -Structure Exposed N/A -Texture (Maria M-wound Skin Appearance) Assessed, Scarring Assessed, Scarring Scarring -Moisture (Maria M-wound Skin Appearance) Assessed,Dry/ Dry/Scaly Assessed,Dry/ Scaly Scaly -Color (Maria M-wound Skin Appearance) Assessed Mottled Assessed -Temperature (Maria M-wound Skin No Abnormality No Abnormality No Abnormality Appearance) (Pt Warm) (Pt Warm) (Pt Warm) -Tenderness on Palpation (Maria M-wound No No No Skin Appearance) -Ulcer Cleansing soapy water Wound Cleanser Rinsed/ Irrigated with Saline -Foul Odor after Cleansing No No No -Anesthetic Used 4% Lidocaine 5% Lidocaine 4% Lidocaine Solution Gel 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 -Combined with other wound No No -Current Size (cm) - Length 10.6 3.2 10.5 -Current Size (cm) - Width 8.4 4.8 7.5 -Current Size (cm) - Depth 0.1 0.1 0.1 -Total Square Cm 89.04 15.36 78.75 -Photo Taken No No No -Epithelialization None Present Small 1-33% -Tunneling No No -Undermining/Tunneling No No -Circular Undermining No No -Exudate Amt None Present Small None Present -Exudate Type Yellow/Green -Wound Margin Distinct, Distinct, Distinct, Outline Outline Outline Attached Attached Attached -Granulation Amt None Present (0 Small (1-33%) Large (67-100%) %) -Granulation Quality [place] Red -Slough/Fibrin Yes Yes -Necrosis Amt Large (67-100%) Large (67-100%) Small (1-33%) -Necrotic Tissue Type Eschar Eschar -Structure Exposed Tendon,N/A -Texture (Maria M-wound Skin Appearance) Assessed, Scarring Assessed, Scarring Scarring -Moisture (Maria M-wound Skin Appearance) Assessed No Abnormality Assessed,Dry/ Scaly -Color (Maria M-wound Skin Appearance) Assessed Hemosiderin Assessed Staining -Temperature (Maria M-wound Skin No Abnormality No Abnormality No Abnormality Appearance) (Pt Warm) (Pt Warm) (Pt Warm) -Tenderness on Palpation (Maria M-wound No No No Skin Appearance) -Ulcer Cleansing soapy water Wound Cleanser Rinsed/ Irrigated with Saline -Foul Odor after Cleansing No No No -Anesthetic Used 4% Lidocaine 5% Lidocaine 4% Lidocaine Solution Gel Solution #13 LEFT MEDIAL PLANTAR -Combined with other wound No No -Current Size (cm) - Length 1.7 2 1.9 -Current Size (cm) - Width 2 2.6 2 -Current Size (cm) - Depth 0.2 0.6 0.4 -Total Square Cm 3.4 5.2 3.8 -Photo Taken No No No -Epithelialization None Present None Present -Tunneling No No -Undermining/Tunneling Yes No -Undermining/Tunneling Starts (O'clock 12 ) -Undermining/Tunneling Ends (O'clock) 1 -Maximum Distance (cm) 0.4 -Circular Undermining No No -Exudate Amt Large Medium Large -Exudate Type Serosanguineous Serosanguineous Serosanguineous -Wound Margin Distinct, Thickened Thickened & Outline Rolled Under Attached -Granulation Amt Large (67-100%) Large (67-100%) Large (67-100%) -Granulation Quality [place] Red Pale,Red -Slough/Fibrin Yes Yes -Necrosis Amt Small (1-33%) Small (1-33%) Small (1-33%) -Necrotic Tissue Type Adherent Slough Adherent Slough Adherent Slough -Structure Exposed N/A -Texture (Maria M-wound Skin Appearance) Assessed,Callus Callus,Scarring Assessed,Callus ,Scarring ,Scarring -Moisture (Maria M-wound Skin Appearance) Assessed,Dry/ Dry/Scaly Assessed Scaly -Color (Maria M-wound Skin Appearance) Assessed Hemosiderin Assessed Staining -Temperature (Maria M-wound Skin No Abnormality No Abnormality No Abnormality Appearance) (Pt Warm) (Pt Warm) (Pt Warm) -Tenderness on Palpation (Maria M-wound No No No Skin Appearance) -Ulcer Cleansing soapy water Wound Cleanser soapy water -Foul Odor after Cleansing No No -Anesthetic Used 4% Lidocaine 5% Lidocaine 4% Lidocaine Solution Gel Solution Lower Limb Edema Present Yes Right Calf (cm) 47.8 43.5 Right Ankle (cm) 26.6 24 Left Calf (cm) 47.6 43.2 Left Ankle (cm) 28.7 27.4 02/14/21 08:55 Wound Center Nurse 1 18-right medial ankle -Combined with other wound No -Current Size (cm) - Length 0.4 -Current Size (cm) - Width 0.4 -Current Size (cm) - Depth 0.1 -Total Square Cm 0.16 -Photo Taken -Epithelialization -Tunneling No -Undermining/Tunneling No -Circular Undermining No -Exudate Amt Small -Exudate Type Serosanguineous -Wound Margin Flat & Intact -Granulation Amt Small (1-33%) -Granulation Quality Red -Slough/Fibrin Yes -Necrosis Amt -Necrotic Tissue Type Adherent Slough -Structure Exposed N/A -Texture (Amria M-wound Skin Appearance) Assessed -Moisture (Maria M-wound Skin Appearance) Dry/Scaly -Color (Maria M-wound Skin Appearance) Assessed -Temperature (Maria M-wound Skin No Abnormality Appearance) (Pt Warm) -Tenderness on Palpation (Marai M-wound No Skin Appearance) -Ulcer Cleansing Wound Cleanser -Foul Odor after Cleansing -Anesthetic Used #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 -Combined with other wound No -Current Size (cm) - Length 10.5 -Current Size (cm) - Width 4.5 -Current Size (cm) - Depth 0.1 -Total Square Cm 47.25 -Photo Taken -Epithelialization -Tunneling No -Undermining/Tunneling No -Circular Undermining No -Exudate Amt Small -Exudate Type Serosanguineous -Wound Margin Flat & Intact -Granulation Amt Medium (34-66%) -Granulation Quality Red -Slough/Fibrin Yes -Necrosis Amt Medium (34-66%) -Necrotic Tissue Type Adherent Slough -Structure Exposed N/A -Texture (Maria M-wound Skin Appearance) Assessed -Moisture (Maria M-wound Skin Appearance) Assessed,Dry/ Scaly -Color (Maria M-wound Skin Appearance) Assessed -Temperature (Maria M-wound Skin No Abnormality Appearance) (Pt Warm) -Tenderness on Palpation (Maria M-wound No Skin Appearance) -Ulcer Cleansing Wound Cleanser -Foul Odor after Cleansing No -Anesthetic Used #13 LEFT MEDIAL PLANTAR -Combined with other wound -Current Size (cm) - Length 1.3 -Current Size (cm) - Width 1.5 -Current Size (cm) - Depth 0.4 -Total Square Cm 1.95 -Photo Taken -Epithelialization -Tunneling No -Undermining/Tunneling No -Undermining/Tunneling Starts (O'clock ) -Undermining/Tunneling Ends (O'clock) -Maximum Distance (cm) -Circular Undermining No -Exudate Amt Medium -Exudate Type Serosanguineous -Wound Margin Thickened -Granulation Amt Medium (34-66%) -Granulation Quality -Slough/Fibrin -Necrosis Amt Medium (34-66%) -Necrotic Tissue Type -Structure Exposed N/A -Texture (Maria M-wound Skin Appearance) Callus -Moisture (Maria M-wound Skin Appearance) Assessed -Color (Maria M-wound Skin Appearance) Assessed -Temperature (Maria M-wound Skin No Abnormality Appearance) (Pt Warm) -Tenderness on Palpation (Maria M-wound No Skin Appearance) -Ulcer Cleansing Wound Cleanser -Foul Odor after Cleansing No -Anesthetic Used 4% Lidocaine Solution Lower Limb Edema Present Right Calf (cm) Right Ankle (cm) Left Calf (cm) Left Ankle (cm) WC - Nurse 2 - General Ulcer CM Notes Start: 01/24/21 13:29 Freq: Status: Active Protocol: Activity Type Activity Date Activity User E-Sign Co-Sign Detail Recorded Client Recorded Date Recorded By Document 01/24/21 14:05 [id number] 01/24/21 14:09 Document 01/31/21 14:41 [id number] 01/31/21 14:52 Document 02/07/21 15:37 [id number] 02/07/21 15:49 JF Edit Result 02/07/21 15:37 JF (1) [id number] 02/08/21 06:35 PL Document 02/14/21 09:25 PL [id number] 02/14/21 09:32 PL (1) #13 LEFT MEDIAL PLANTAR - Apply Skin Sub - 1st 25 sq cm - Feet => 1 - Apply Skin Sub - each addt'l 25 sq cm 1 => - Feet 01/24/21 01/31/21 02/07/21 14:05 14:41 15:37 Wound Center Nurse 2 18-right medial ankle -Time 14:05 14:42 15:39 -Correct Patient Yes Yes Yes -Correct Side, Site, Position Yes Yes Yes -Correct Procedure Yes Yes Yes -Procedure Performed Yes Yes Yes -Type of Procedure Debridement Debridement Debridement -Clinical Debridement Subcutaneous Subcutaneous Subcutaneous -Tissue Removed Subcutaneous Subcutaneous Subcutaneous -Post Debridement (cm) - Length 1 0.3 0.3 -Post Debridement (cm) - Width 0.5 0.3 0.3 -Post Debridement (cm) - Depth 0.1 0.1 0.2 -Total Square (Post) (cm) 0.5 0.09 0.09 -Area of Debridement (cm) - Length 1 0.3 0.3 -Area of Debridement (cm) - Width 0.5 0.3 0.2 -Total Square (Area) (cm) 0.5 0.09 0.06 -Tunneling No No No -Undermining/Tunneling No No No -Circular Undermining No No No -Wound/Ulcer Outcome Not Healed Not Healed Not Healed -Ulcer Cleansing Rinsed/ Rinsed/ Rinsed/ Irrigated with Irrigated with Irrigated with Saline Saline Saline -Foul Odor after Cleansing No No No -Bioengineered Tissue No No No -Bleeding Controlled with Pressure Pressure Pressure -Offloading No No No -Type of Offloading Knee Walker -Treatment Response Procedure Procedure Tolerated Well Tolerated Well -Debridement - Open, 1st 20sq cm -Debridement - Subq, 1st 20sq cm Yes Yes Yes -Debridement, SubQ, ea addt'l 20sq cm 1 or part thereof #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 -Time 14:06 14:43 15:39 -Correct Patient Yes Yes Yes -Correct Side, Site, Position Yes Yes Yes -Correct Procedure Yes Yes Yes -Procedure Performed Yes Yes Yes -Type of Procedure Debridement Debridement Debridement -Clinical Debridement Subcutaneous Subcutaneous Subcutaneous -Tissue Removed Subcutaneous Subcutaneous Subcutaneous -Post Debridement (cm) - Length 9 3.2 3 -Post Debridement (cm) - Width 3 4.9 1.5 -Post Debridement (cm) - Depth 0.1 0.1 0.1 -Total Square (Post) (cm) 27 15.68 4.5 -Area of Debridement (cm) - Length 9 3.2 3 -Area of Debridement (cm) - Width 3 4.9 1.5 -Total Square (Area) (cm) 27 15.68 4.5 -Tunneling No No No -Undermining/Tunneling No No No -Circular Undermining No No No -Wound/Ulcer Outcome Not Healed Not Healed Not Healed -Ulcer Cleansing Rinsed/ Rinsed/ Rinsed/ Irrigated with Irrigated with Irrigated with Saline Saline Saline -Foul Odor after Cleansing No No No -Bioengineered Tissue No No No -Bleeding Controlled with Pressure Pressure Pressure -Offloading No No No -Type of Offloading Knee Walker -Treatment Response Procedure Procedure Tolerated Well Tolerated Well -Debridement - Subq, 1st 20sq cm No No No #13 LEFT MEDIAL PLANTAR -Time 14:07 14:44 15:40 -Correct Patient Yes Yes Yes -Correct Side, Site, Position Yes Yes Yes -Correct Procedure Yes Yes Yes -Procedure Performed Yes Yes Yes -Type of Procedure Debridement Debridement Debridement -Clinical Debridement Subcutaneous Subcutaneous Subcutaneous -Tissue Removed Subcutaneous Subcutaneous Subcutaneous -Post Debridement (cm) - Length 1.8 2.1 2 -Post Debridement (cm) - Width 2 2.6 2 -Post Debridement (cm) - Depth 0.2 0.6 0.4 -Total Square (Post) (cm) 3.6 5.46 4 -Area of Debridement (cm) - Length 1.8 2.1 2 -Area of Debridement (cm) - Width 2 2.6 2 -Total Square (Area) (cm) 3.6 5.46 4 -Tunneling No No No -Undermining/Tunneling No No No -Circular Undermining No No No -Wound/Ulcer Outcome Not Healed Not Healed Not Healed -Ulcer Cleansing Rinsed/ Rinsed/ Rinsed/ Irrigated with Irrigated with Irrigated with Saline Saline Saline -Foul Odor after Cleansing No No No -Bioengineered Tissue Yes Yes Yes -Type of Bioengineered Tissue Epifix Epifix Epifix -Expiration Date 09/22/25 10/23/25 10/23/25 -Product Lot Number [id number] -Percent Used 100 100 100 -Lot number of Saline Used [id number] -Bleeding Controlled with Pressure Pressure Pressure -Offloading Yes Yes Yes -Type of Offloading Camwalker Total Contact Total Contact Cast (TCC) - Cast (TCC) - Left ($) Left ($) -Treatment Response Procedure Procedure Procedure Tolerated Well Tolerated Well Tolerated Well -Debridement - Subq, 1st 20sq cm No No No -Apply Skin Sub - 1st 25 sq cm - Feet 1 1 1 -Epifix (per sq cm) 4 4 4 Pain Scale: 0-10 Numeric Is Patient Pain Free? Yes Yes 02/14/21 09:25 Wound Center Nurse 2 18-right medial ankle -Time 09:14 -Correct Patient Yes -Correct Side, Site, Position Yes -Correct Procedure Yes -Procedure Performed Yes -Type of Procedure Debridement -Clinical Debridement Epidermis / Dermis -Tissue Removed Epidermis, Dermis -Post Debridement (cm) - Length 0.5 -Post Debridement (cm) - Width 0.5 -Post Debridement (cm) - Depth 0.2 -Total Square (Post) (cm) 0.25 -Area of Debridement (cm) - Length 0.5 -Area of Debridement (cm) - Width 0.5 -Total Square (Area) (cm) 0.25 -Tunneling No -Undermining/Tunneling No -Circular Undermining No -Wound/Ulcer Outcome Not Healed -Ulcer Cleansing Rinsed/ Irrigated with Saline -Foul Odor after Cleansing No -Bioengineered Tissue No -Bleeding Controlled with Pressure -Offloading -Type of Offloading -Treatment Response Procedure Tolerated Well -Debridement - Open, 1st 20sq cm Yes -Debridement - Subq, 1st 20sq cm -Debridement, SubQ, ea addt'l 20sq cm or part thereof #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 -Time 09:14 -Correct Patient Yes -Correct Side, Site, Position Yes -Correct Procedure Yes -Procedure Performed Yes -Type of Procedure Debridement -Clinical Debridement Subcutaneous -Tissue Removed Subcutaneous -Post Debridement (cm) - Length 10.6 -Post Debridement (cm) - Width 4.6 -Post Debridement (cm) - Depth 0.2 -Total Square (Post) (cm) 48.76 -Area of Debridement (cm) - Length 10.6 -Area of Debridement (cm) - Width 4.6 -Total Square (Area) (cm) 48.76 -Tunneling No -Undermining/Tunneling No -Circular Undermining No -Wound/Ulcer Outcome Not Healed -Ulcer Cleansing Rinsed/ Irrigated with Saline -Foul Odor after Cleansing No -Bioengineered Tissue No -Bleeding Controlled with -Offloading -Type of Offloading -Treatment Response -Debridement - Subq, 1st 20sq cm No #13 LEFT MEDIAL PLANTAR -Time 09:14 -Correct Patient Yes -Correct Side, Site, Position Yes -Correct Procedure Yes -Procedure Performed Yes -Type of Procedure Debridement -Clinical Debridement Subcutaneous -Tissue Removed Subcutaneous -Post Debridement (cm) - Length 1.4 -Post Debridement (cm) - Width 1.6 -Post Debridement (cm) - Depth 0.5 -Total Square (Post) (cm) 2.24 -Area of Debridement (cm) - Length 1.4 -Area of Debridement (cm) - Width 1.6 -Total Square (Area) (cm) 2.24 -Tunneling No -Undermining/Tunneling No -Circular Undermining No -Wound/Ulcer Outcome Not Healed -Ulcer Cleansing Rinsed/ Irrigated with Saline -Foul Odor after Cleansing No -Bioengineered Tissue Yes -Type of Bioengineered Tissue Epifix -Expiration Date 10/23/25 -Product Lot Number [id number] -Percent Used 100 -Lot number of Saline Used -Bleeding Controlled with Pressure -Offloading -Type of Offloading Total Contact Cast (TCC) - Left ($) -Treatment Response Procedure Tolerated Well -Debridement - Subq, 1st 20sq cm No -Apply Skin Sub - 1st 25 sq cm - Feet -Epifix (per sq cm) 4 Pain Scale: 0-10 Numeric Is Patient Pain Free? Yes WC - Nurse 3 - General Ulcer D/C NN Start: 01/24/21 13:29 Freq: Status: Active Protocol: Activity Type Activity Date Activity User E-Sign Co-Sign Detail Recorded Client Recorded Date Recorded By Document 01/24/21 14:29 DL [id number] 01/24/21 14:30 DL Document 01/31/21 15:10 RB [id number] 01/31/21 15:14 RB Document 02/07/21 15:53 MS [id number] 02/07/21 15:57 MS 01/24/21 01/31/21 02/07/21 14:29 15:10 15:53 Wound Care Nurse 3 18-right medial ankle -Ulcer Cleansing Rinsed/ Irrigated with Saline -Foul Odor after Cleansing No No -Primary Dressing Applied NonAdherent NonAdherent Contact Layer Contact Layer -Other Dressing hydrogel hydrogel hydrogeol, adaptic -Primary Dressing Covered/Secured with Dry Gauze & Dry Gauze,Dry Roll Gauze, Gauze & Roll Secured with Gauze,Secured Tape with Tape #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 -Ulcer Cleansing Rinsed/ Irrigated with Saline -Foul Odor after Cleansing No -Primary Dressing Applied NonAdherent NonAdherent Contact Layer Contact Layer -Other Dressing hydrogel hydrogel hydrogel, adaptic -Primary Dressing Covered/Secured with Dry Gauze & Dry Gauze,Dry Roll Gauze, Gauze & Roll Secured with Gauze,Secured Tape with Tape #13 LEFT MEDIAL PLANTAR -Foul Odor after Cleansing No No -Other Dressing Epifix hydrogel -Primary Dressing Covered/Secured with Dry Gauze & Roll Gauze, Secured with Tape -Other Covering primary layer tcc undercast TCC applied 4 Right -Tubular Bandage Single Layer -Size of Tubigrip Used Size E -Size E ($) 1 Treatment Response Procedure Procedure Tolerated Well Tolerated Well Pain Scale: 0-10 Numeric Is Patient Pain Free? Yes Yes WC - Visit Discharge Discharge Condition Stable Stable Stable Ambulatory Status Ambulatory Ambulatory Ambulatory Transportation Private Auto Private Auto Medication Reconcilliation completed & No No provided to patient/care provider Clinical Summary of Care Provided Yes Yes Wound debrided: left foot Wound Grade/Stage: 3 Type of Debridement: Excisional debridement Anesthesia Used: 4% Lidocaine Solution Depth: in the subcutaneous layer Percentage of wound debrided: 100 Instrument Used: #15 blade Tissue Removed: fibrous, devitalized subcutaneous, biofilm, slough Severity: Fat Layer Exposed Amount of bleeding with debridement: Mild Bleeding Controlled with: Pressure Patient tolerated procedure: Patient tolerated procedure well Assessment/Plan Assessment/Plan (1) 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: CODE(S): L97.912 - Non-pressure chronic ulcer of unspecified part of right lower leg with fat layer exposed (2) Ulcer of left lower extremity with fat layer exposed: CODE(S): L97.922 - Non-pressure chronic ulcer of unspecified part of left lower leg with fat layer exposed (3) Type 2 diabetes mellitus with diabetic polyneuropathy: CODE(S): E11.42 - Type 2 diabetes mellitus with diabetic polyneuropathy QUALIFIERS: Qualified Code(s): Z79.4 - prison (current) use of insulin (4) Debility: CODE(S): R53.81 - Other malaise (5) Diabetic polyneuropathy: CODE(S): E11.42 - Type 2 diabetes mellitus with diabetic polyneuropathy (6) Localized edema: CODE(S): R60.0 - Localized edema (7) Difficulty walking: CODE(S): R26.2 - Difficulty in walking, not elsewhere classified (8) Delayed wound healing: CODE(S): T14.8XXD - Other injury of unspecified body region, subsequent encounter PLAN: Procedure- Location: right leg and medial ankle grade 1 Excisional debridement performed Anesthesia: 5% lidocaine plain Debridement layer: subcutaneous (leg), selective (ankle) Amount of debridement: 100% , 100% Instrumentation used: 15 blade Tissue debrided: fibrous, devitalized subcutaneous, biofilm, slough Exposed tissue: fat layer Bleeding: mild Hemostasis controlled: pressure The patient tolerated the procedure well I reviewed and discussed his case.? Subcutaneous excisional debridement was performed as noted in the clinical panel to the left foot and the right leg.? Selective debridement was performed to the medial right ankle. Edema noted and has been addressed.? To elevate and reduce salt intake.? To continue with Tubigrip compression garments. I recommend application of advanced wound healing product to the left foot.? Prior authorization was confirmed.? The indications, benefits, anticipated application and healing time management were reviewed in detail.? Verbal consent was obtained in the procedure for today.? Epi fix was applied according to standard protocol and was further secured with a wound veil and Steri-Strips to the left foot. ? He tolerated this well. Hydrogel was applied to other wound sites of the right medial ankle and leg cluster; to change daily.? The applicat ion of advanced wound healing product is medically necessary for limb salvage.? He has tried other conservative care without healed status. Verbal consent was obtained for application of left total contact cast. This was applied according to standard protocol in a rectus position and well-padded manner. He tolerated this well. He was advised to keep this clean, dry, and intact until follow-up next week. To call if the cast gets wet or problematic. To wash limbs with soap and water. To avoid soaking activities. I discussed the need for serious offloading for limb salvage purposes.? He has tried various shoes and walking boots.? He has struggled with the use of such as a walker of a knee roller and has impaired gait.? An electric wheelchair (extra width) is also an option and at this time I recommend this.? This is medically necessary due to his bilateral lower extremity non weightbearing status, he lives alone and does not have assistance, he is a fall risk, and prolonged delayed wound healing is limb and life threatening. Updated prescription was provided again at previous visit. His noninvasive vascular studies were reviewed from 05-04-2020 which were normal and intervention was previously not recommended.? Urine he had bilateral arterial duplex and was advised to follow-up 1 year for updated exam. I reviewed Dr. Bonilla's note from June 14, 2020. To continue to work on decreasing glucose levels.? He has a history of hyperglycemia.? His last A1c was 8.8% in October 2020. To continue follow-up with primary care physician.? To continue to follow-up with nutritional services.? To continue to follow-up as advised.? He is currently making adjustments with his nutritional habits.? He also follows up with tunnel form placing supervisor, Dr. Arteaga, who is working with him to reduce his hemoglobin A1c with medication and behavioral changes. Smoking cessation was discussed in detail and he was advised on the healing impairment associated with this.? To continue with his smoking cessation program.? He denies current tobacco use. I also recommend discontinuation of nicotine products for this also contributes to small vessel contraction.? ? He is currently undergoing advanced wound healing product application. If this fails the following options exist: Proceeding with a palliative wound care plan which she follows up every 2 to 4 weeks and the goal is to keep the ulcers noninfected and stable, below-knee amputation, revisional transmetatarsal amputation with rotational skin flap. Prognosis is guarded with ongoing glucose elevation and inability to comply with nonweightbearing standards. I answered all of his questions today.? To return to clinic in 1 week or call sooner if questions, concerns, or progressive worsening. ? Note: [employer] speech recognition investigator utility bill complaints software was used to create portions of this document. Sound-alike and misspelled words, as well as other investigator utility bill complaints errors may be contained in the documentation.
== END 2021-02-19 23:59 ==
LOC: WC 08:45
PROVIDERS: PCP Family Medicine Geriatric Medicine; Referring Provider Podiatrist; Visit Provider Podiatrist
DX: E11.621 Type 2 diabetes mellitus with foot ulcer (principal); E11.622 Type 2 diabetes mellitus with other skin ulcer; E11.42 Type 2 diabetes mellitus with diabetic polyneuropathy; R60.0 Localized edema; L97.312 Non-pressure chronic ulcer of right ankle with fat layer exposed; L97.812 Non-pressure chronic ulcer of other part of right lower leg with fat layer exposed; L97.522 Non-pressure chronic ulcer of other part of left foot with fat layer exposed; R26.2 Difficulty in walking, not elsewhere classified
CPT/HCPCS: 11042; 11045; 15275; 15276; 29445; 97597; Q4186

== ENCOUNTER 2021-03-21 13:00 | Outpatient (RCR) | payer MEDICARE, MEDICAID, SELFPAY ==
[2021-02-20 00:20] VITALS: BP 149/71; PULSE 94; RESP 18; TEMP 36.3
[2021-02-21 13:30] VITALS: BP 157/71; PULSE 98; RESP 18; TEMP 36.2; BMI 48.5
--- NOTE | 2021-02-21 14:19 | PN.PCM_ITS ---
History of Present Illness Date of Service: 02/21/21 Chief Complaint: Diabetic left foot ulceration, [place] Grade 3 right leg ulcers right medial ankle ulcer History of Wound: This 65-year-old male with multiple comorbidities was seen today for left foot ulcer that is very chronic. He was also seen for right leg and medial ankle ulcers. He denies diarrhea, fever, chill, nausea, vomiting. He denies redness or odor. He denies calf pain. Progress of Wound: stable Objective Data Objective Data Vital Signs: Vital Signs Temp Pulse Resp BP 97.2 F L 98 18 157/71 H 02/21/21 13:30 02/21/21 13:30 02/21/21 13:30 02/21/21 13:30 Weight: 147.418 kg Body Mass Index (BMI) 48.5 Physical Exam Const alert and oriented x3 General Appearance: cooperative HEENT normocephalic Extremity Extremity Narrative: No calf tenderness Diminished pulses Muscle wasting noted left transmetatarsal amputation no fluctuance or bogginess General Extremity: edema and no tenderness to palpation of joints or extremities; Negative for cyanosis Skin Skin Narrative: no purulence, no streaking, no odor, no infection. skin is atrophic and hairless. granular base ulcer,all General Skin Exam: Negative for erythema Neuro Neuro Narrative: lack of normal epicritic sensation via light touch is consistent with neuropathy status Psych cooperative and affect normal Debridement Note Debridement Note Post-Debridement Measurements and Additional Note: Post-Debridement Measurements/Treatment WC - Nurse 1 - General Ulcer Assessment Start: 02/21/21 13:30 Freq: Status: Active Protocol: UZIEL.NIC Activity Type Activity Date Activity User E-Sign Co-Sign Detail Recorded Client Recorded Date Recorded By Document 02/21/21 13:30 KIKA [id number] 02/21/21 13:46 PL 02/21/21 13:30 - Today's Visit Information Type of service Follow-up Visit (Physician/PRODUCTION CONTROL EXPERT ) Arrival Mode Cane Transfer Assistance None Patient Identification Verified (Name & Yes ) Patient Requires Transmission-Based No Precautions Safety Precautions NA Height and Weight Body Mass Index (BMI) 48.5 BMI Classification Obese Vital Signs Temperature (97.8 F-99.1 F) 97.2 F L Temperature Source Temporal Pulse Rate (60-100) 98 Respiratory Rate (12-18) 18 Blood Pressure (90/60-120/80) 157/71 H Blood Pressure Mean (mm Hg) 99 History Since Last Visit- (Skip if this is Patient's initial visit) Have you changed medications since your No last visit? Any new allergies or adverse reactions No Had a fall/change in ADL's that may No increase risk of falls Signs or symptoms of abuse and/or No neglect since last visit Have you been in the hospital since your No last visit? Has dressing in place as prescribed Yes Has compression in place as prescribed Yes Has offloadiing in place as prescribed Yes Experienced any changes in pain level or No management Pain Scale: 0-10 Numeric Is Patient Pain Free? Yes WC - Nurse 1 - General Ulcer Measurement Start: 02/21/21 13:30 Freq: Status: Active Protocol: Activity Type Activity Date Activity User E-Sign Co-Sign Detail Recorded Client Recorded Date Recorded By Document 02/21/21 13:30 PL [id number] 02/21/21 13:46 PL 02/21/21 13:30 Wound Center Nurse 1 18-right medial ankle -Current Size (cm) - Length 0.5 -Current Size (cm) - Width 0.4 -Current Size (cm) - Depth 0.3 -Total Square Cm 0.20 -Photo Taken No -Epithelialization None Present -Tunneling No -Undermining/Tunneling No -Circular Undermining No -Exudate Amt Medium -Exudate Type Serosanguineous -Wound Margin Thickened & Rolled Under -Granulation Amt Small (1-33%) -Granulation Quality [place] -Slough/Fibrin Yes -Necrosis Amt Large (67-100%) -Necrotic Tissue Type Adherent Slough -Texture (Maria M-wound Skin Appearance) Callus -Moisture (Maria M-wound Skin Appearance) No Abnormality -Color (Maria M-wound Skin Appearance) No Abnormality -Temperature (Maria M-wound Skin No Abnormality Appearance) (Pt Warm) -Ulcer Cleansing Soap and Water -Anesthetic Used 5% Lidocaine Gel #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 -Combined with other wound No -Current Size (cm) - Length 10 -Current Size (cm) - Width 1.0 -Current Size (cm) - Depth 0.1 -Total Square Cm 10.0 -Photo Taken No -Epithelialization Large 67-100% -Tunneling No -Undermining/Tunneling No -Circular Undermining No -Exudate Amt Medium -Exudate Type Serosanguineous -Granulation Amt Medium (34-66%) -Granulation Quality [place] -Slough/Fibrin Yes -Necrosis Amt Medium (34-66%) -Necrotic Tissue Type Adherent Slough -Texture (Maria M-wound Skin Appearance) No Abnormality -Moisture (Maria M-wound Skin Appearance) No Abnormality -Color (Maria M-wound Skin Appearance) No Abnormality -Temperature (Maria M-wound Skin No Abnormality Appearance) (Pt Warm) -Ulcer Cleansing Rinsed/ Irrigated with Saline -Foul Odor after Cleansing No -Anesthetic Used 5% Lidocaine Gel #13 LEFT MEDIAL PLANTAR -Current Size (cm) - Length 1.0 -Current Size (cm) - Width 1.0 -Current Size (cm) - Depth 0.4 -Total Square Cm 1.00 -Photo Taken No -Epithelialization None Present -Tunneling No -Undermining/Tunneling No -Circular Undermining No -Exudate Amt Medium -Exudate Type Serosanguineous -Wound Margin Thickened & Rolled Under -Granulation Amt Medium (34-66%) -Granulation Quality [place] -Slough/Fibrin Yes -Necrosis Amt Medium (34-66%) -Necrotic Tissue Type Adherent Slough -Texture (Maria M-wound Skin Appearance) Callus -Moisture (Maria M-wound Skin Appearance) Weeping -Color (Maria M-wound Skin Appearance) No Abnormality -Ulcer Cleansing Soap and Water -Anesthetic Used 5% Lidocaine Gel WC - Nurse 2 - General Ulcer CM Notes Start: 02/21/21 13:30 Freq: Status: Active Protocol: Activity Type Activity Date Activity User E-Sign Co-Sign Detail Recorded Client Recorded Date Recorded By Document 02/21/21 14:06 CASSY [id number] 02/21/21 14:17 CASSY 02/21/21 14:06 Wound Center Nurse 2 18-right medial ankle -Time 14:06 -Correct Patient Yes -Correct Side, Site, Position Yes -Correct Procedure Yes -Procedure Performed Yes -Type of Procedure Debridement -Clinical Debridement Subcutaneous -Tissue Removed Subcutaneous -Post Debridement (cm) - Length 0.5 -Post Debridement (cm) - Width 0.5 -Post Debridement (cm) - Depth 0.3 -Total Square (Post) (cm) 0.25 -Area of Debridement (cm) - Length 0.5 -Area of Debridement (cm) - Width 0.5 -Total Square (Area) (cm) 0.25 -Tunneling No -Circular Undermining No -Wound/Ulcer Outcome Not Healed -Ulcer Cleansing Rinsed/ Irrigated with Saline -Foul Odor after Cleansing No -Bioengineered Tissue No -Bleeding Controlled with Pressure -Offloading No -Treatment Response Procedure Tolerated Well -Debridement - Subq, 1st 20sq cm Yes #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 -Time 14:07 -Correct Patient Yes -Correct Side, Site, Position Yes -Correct Procedure Yes -Procedure Performed Yes -Type of Procedure Debridement -Clinical Debridement Subcutaneous -Tissue Removed Subcutaneous -Post Debridement (cm) - Length 1 -Post Debridement (cm) - Width 1 -Post Debridement (cm) - Depth 0.1 -Total Square (Post) (cm) 1 -Area of Debridement (cm) - Length 1 -Area of Debridement (cm) - Width 1 -Total Square (Area) (cm) 1 -Tunneling No -Undermining/Tunneling No -Circular Undermining No -Wound/Ulcer Outcome Not Healed -Ulcer Cleansing Rinsed/ Irrigated with Saline -Foul Odor after Cleansing No -Bioengineered Tissue No -Bleeding Controlled with Pressure -Offloading No -Treatment Response Procedure Tolerated Well -Debridement - Subq, 1st 20sq cm No #13 LEFT MEDIAL PLANTAR -Time 14:07 -Correct Patient Yes -Correct Side, Site, Position Yes -Correct Procedure Yes -Procedure Performed Yes -Type of Procedure Debridement -Clinical Debridement Subcutaneous -Tissue Removed Dermis -Post Debridement (cm) - Length 1.7 -Post Debridement (cm) - Width 1.8 -Post Debridement (cm) - Depth 0.3 -Total Square (Post) (cm) 3.06 -Area of Debridement (cm) - Length 1.7 -Area of Debridement (cm) - Width 1.8 -Total Square (Area) (cm) 3.06 -Tunneling No -Undermining/Tunneling No -Circular Undermining No -Wound/Ulcer Outcome Not Healed -Ulcer Cleansing Rinsed/ Irrigated with Saline -Foul Odor after Cleansing No -Bioengineered Tissue Yes -Type of Bioengineered Tissue Epifix -Expiration Date 10/23/25 -Product Lot Number [id number] -Percent Used 100 -Lot number of Saline Used [id number] -Bleeding Controlled with Pressure -Offloading Yes -Type of Offloading Total Contact Cast (TCC) - Left ($) -Treatment Response Procedure Tolerated Well -Debridement - Subq, 1st 20sq cm No -Apply Skin Sub - 1st 25 sq cm - Feet 1 -Epifix (per sq cm) 4 Pain Scale: 0-10 Numeric Is Patient Pain Free? 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: CODE(S): L97.912 - Non-pressure chronic ulcer of unspecified part of right lower leg with fat layer exposed (2) Non-pressure chronic ulcer of other part of left foot with fat layer exposed: CODE(S): L97.522 - Non-pressure chronic ulcer of other part of left foot with fat layer exposed (3) Type 2 diabetes mellitus with diabetic polyneuropathy: CODE(S): E11.42 - Type 2 diabetes mellitus with diabetic polyneuropathy QUALIFIERS: Qualified Code(s): Z79.4 - 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 (4) Localized edema: CODE(S): R60.0 - Localized edema (5) Difficulty walking: CODE(S): R26.2 - Difficulty in walking, not elsewhere classified PLAN: Procedure- Location: right leg and medial ankle grade 1 Excisional debridement performed Anesthesia: 5% lidocaine plain Debridement layer: subcutaneous Amount of debridement: 10% leg cluster , 100% medial ankle location Instrumentation used: 15 blade Tissue debrided: fibrous, devitalized subcutaneous, biofilm, slough Exposed tissue: fat layer Bleeding: mild Hemostasis controlled: pressure The patient tolerated the procedure well I reviewed and discussed his case. Subcutaneous excisional debridement was performed as noted in the clinical panel to the left foot and the right leg/medial ankle. Edema noted and has been addressed. To elevate and reduce salt intake. To continue with Tubigrip compression garments. To change right leg / ankle dressings with adaptic and hydrogel I recommend application of advanced wound healing product to the left foot. Prior authorization was confirmed. The indications, benefits, anticipated application and healing time management were reviewed in detail. Verbal consent was obtained in the procedure for today. Epi fix was applied according to standard protocol and was further secured with a wound veil and Steri-Strips to the left foot. He tolerated this well. Hydrogel was applied to other wound sites of the right medial ankle and leg cluster; to change daily. The application of advanced wound healing product is medically necessary for limb salvage. He has tried other conservative care without healed status. Verbal consent was obtained for application of left total contact cast. This was applied according to standard protocol in a rectus position and well-padded manner. He tolerated this well. He was advised to keep this clean, dry, and intact until follow-up next week. To call if the cast gets wet or problematic. To wash limbs with soap and water. To avoid soaking activities. I discussed the need for serious offloading for limb salvage purposes. He has tried various shoes and walking boots. He has struggled with the use of such as a walker of a knee roller and has impaired gait. An electric wheelchair (extra width) is also an option and at this time I recommend this. This is medically necessary due to his bilateral lower extremity non weightbearing status, he lives alone and does not have assistance, he is a fall risk, and prolonged delayed wound healing is limb and life threatening. Updated prescription was provided again at previous visit. His noninvasive vascular studies were reviewed from 05-04-2020 which were normal and intervention was previously not recommended. Urine he had bilateral arterial duplex and was advised to follow-up 1 year for updated exam. I reviewed Dr. Bonilla's note from June 14, 2020. To continue to work on decreasing glucose levels. He has a history of hyperglycemia. His last A1c was 8.8% in October 2020. To continue follow-up with primary care physician. To continue to follow-up with nutritional services. To continue to follow-up as advised. He is currently making adjustments with his nutritional habits. He also follows up with hand profiler, Dr. Arteaga, who is working with him to reduce his hemoglobin A1c with medication and behavioral changes. Smoking cessation was discussed in detail and he was advised on the healing impairment associated with this. To continue with his smoking cessation program. He denies current tobacco use. I also recommend discontinuation of nicotine products for this also contributes to small vessel contraction. He is currently undergoing advanced wound healing product application. If this fails the following options exist: Proceeding with a palliative wound care plan which he follows up every 2 to 4 weeks and the goal is to keep the ulcers noninfected and stable, below-knee amputation, revisional transmetatarsal amputation with rotational skin flap. Prognosis is guarded with ongoing glucose elevation and inability to comply with nonweightbearing standards. I answered all of his questions today. To return to clinic in 1 week or call sooner if questions, concerns, or progressive worsening. Note: [employer] speech recognition toe closing machine tender software was used to create portions of this document. Sound-alike and misspelled words, as well as other toe closing machine tender errors may be contained in the documentation.
[2021-02-28 14:14] VITALS: BP 150/70; PULSE 91; RESP 22; TEMP 36.9; BMI 48.5
--- NOTE | 2021-02-28 16:21 | PN.PCM_ITS ---
History of Present Illness Date of Service: 02/28/21 Chief Complaint: Diabetic left foot ulceration, [place] Grade 3 right leg ulcers right medial ankle ulcer History of Wound: This 65-year-old male with multiple comorbidities was seen today for left foot ulcer that is very chronic. He was also seen for right leg and medial ankle ulcers. He denies diarrhea, fever, chill, nausea, vomiting. He denies redness or odor. He denies calf pain. He has debility and difficulty walking. He is trying to get approved for an electric wheelchair because ambulation is limiting his ability to heal his foot ulcers by placing routine weight on these. He tolerated his total contact cast well last week. His treatment plan is medically necessary for limb and life salvage. Progress of Wound: stable Objective Data Objective Data Vital Signs: Vital Signs Temp Pulse Resp BP 98.4 F 91 22 H 150/70 H 02/28/21 14:14 02/28/21 14:14 02/28/21 14:14 02/28/21 14:14 Weight: 147.418 kg Body Mass Index (BMI) 48.5 Physical Exam Const alert and oriented x3 General Appearance: cooperative HEENT normocephalic Extremity Extremity Narrative: Left transmetatarsal amputation Muscle wasting Compartments soft to palpate bilateral lower extremities No bogginess or fluctuance on palpation General Extremity: edema and no tenderness to palpation of joints or extremities; Negative for cyanosis Skin Skin Narrative: No purulence, erythema, streaking, odor, infection. The right leg ulcer sites have healthier moisture and granulation tissue development. His left foot ulcer also has a healthy granular base today with reduced peripheral callus. No necrosis, deep tissue exposure, odor or maceration. His skin to the bilateral lower extremities is hairless and atrophic. General Skin Exam: Negative for erythema Neuro Neuro Narrative: Lack of normal epicritic sensation to light touch is consistent with neuropathic status bilateral lower extremities Psych cooperative and affect normal Debridement Note Debridement Note Post-Debridement Measurements and Additional Note: Post-Debridement Measurements/Treatment WC - Nurse 1 - General Ulcer Assessment Start: 02/21/21 13:30 Freq: Status: Active Protocol: [email or web address] Activity Type Activity Date Activity User E-Sign Co-Sign Detail Recorded Client Recorded Date Recorded By Document 02/21/21 13:30 PL [id number] 02/21/21 13:46 PL Document 02/28/21 14:14 DL [id number] 02/28/21 14:32 DL 02/21/21 02/28/21 13:30 14:14 WC - Today's Visit Information Type of service Follow-up Visit Follow-up Visit (Physician/BEAMING 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 (Physician/BEAMING 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 ) ) Arrival Mode Cane Ambulatory Transfer Assistance None None Patient Identification Verified (Name & Yes Yes ) Patient Requires Transmission-Based No No Precautions Safety Precautions NA Finger Stick Blood Sugar(mg/dl) (if 185 indicated): Blood Sugar Stated by Patient Height and Weight Body Mass Index (BMI) 48.5 48.5 BMI Classification Obese Obese Vital Signs Temperature (97.8 F-99.1 F) 97.2 F L 98.4 F Temperature Source Temporal Temporal Pulse Rate (60-100) 98 91 Pulse Location Monitor Respiratory Rate (12-18) 18 22 H Respiratory rate source Observation Blood Pressure (90/60-120/80) 157/71 H 150/70 H Blood Pressure Mean (mm Hg) 99 96 Source Monitor History Since Last Visit- (Skip if this is Patient's initial visit) Have you changed medications since your No No last visit? Any new allergies or adverse reactions No No Had a fall/change in ADL's that may No No increase risk of falls Signs or symptoms of abuse and/or No No neglect since last visit Have you been in the hospital since your No No last visit? Has dressing in place as prescribed Yes Yes Has compression in place as prescribed Yes N/A Has offloadiing in place as prescribed Yes Experienced any changes in pain level or No No management Left Footwear Total Contact Cast Right Footwear Regular Shoe Pain Scale: 0-10 Numeric Is Patient Pain Free? Yes Yes - Nurse 1 - General Ulcer Measurement Start: 02/21/21 13:30 Freq: Status: Active Protocol: Activity Type Activity Date Activity User E-Sign Co-Sign Detail Recorded Client Recorded Date Recorded By Document 02/21/21 13:30 PL [id number] 02/21/21 13:46 PL Document 02/28/21 14:14 DL [id number] 02/28/21 14:32 DL 02/21/21 02/28/21 13:30 14:14 Wound Center Nurse 1 18-right medial ankle -Current Size (cm) - Length 0.5 0.3 -Current Size (cm) - Width 0.4 0.2 -Current Size (cm) - Depth 0.3 0.1 -Total Square Cm 0.20 0.06 -Photo Taken No No -Epithelialization None Present -Tunneling No -Undermining/Tunneling No -Circular Undermining No -Exudate Amt Medium None Present -Exudate Type Serosanguineous -Wound Margin Thickened & Thickened Rolled Under -Granulation Amt Small (1-33%) Small (1-33%) -Granulation Quality [place] -Slough/Fibrin Yes -Necrosis Amt Large (67-100%) Small (1-33%) -Necrotic Tissue Type Adherent Slough Adherent Slough -Structure Exposed N/A -Texture (Maria M-wound Skin Appearance) Callus Scarring -Moisture (Maria M-wound Skin Appearance) No Abnormality Dry/Scaly -Color (Maria M-wound Skin Appearance) No Abnormality Hemosiderin Staining -Temperature (Maria M-wound Skin No Abnormality No Abnormality Appearance) (Pt Warm) (Pt Warm) -Tenderness on Palpation (Maria M-wound No Skin Appearance) -Ulcer Cleansing Soap and Water Wound Cleanser -Foul Odor after Cleansing Yes, Due to Product Use -Anesthetic Used 5% Lidocaine 4% Lidocaine Gel 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 -Combined with other wound No -Current Size (cm) - Length 10 15 -Current Size (cm) - Width 1.0 7 -Current Size (cm) - Depth 0.1 0.1 -Total Square Cm 10.0 105 -Photo Taken No No -Epithelialization Large 67-100% -Tunneling No -Undermining/Tunneling No -Circular Undermining No -Exudate Amt Medium Small -Exudate Type Serosanguineous Serosanguineous -Wound Margin Distinct, Outline Attached -Granulation Amt Medium (34-66%) Large (67-100%) -Granulation Quality [place] Red -Slough/Fibrin Yes -Necrosis Amt Medium (34-66%) Small (1-33%) -Necrotic Tissue Type Adherent Slough Adherent Slough -Structure Exposed N/A -Texture (Maria M-wound Skin Appearance) No Abnormality Scarring -Moisture (Maria M-wound Skin Appearance) No Abnormality Dry/Scaly -Color (Maria M-wound Skin Appearance) No Abnormality Hemosiderin Staining -Temperature (Maria M-wound Skin No Abnormality No Abnormality Appearance) (Pt Warm) (Pt Warm) -Tenderness on Palpation (Maria M-wound No Skin Appearance) -Ulcer Cleansing Rinsed/ Wound Cleanser Irrigated with Saline -Foul Odor after Cleansing No No -Anesthetic Used 5% Lidocaine 4% Lidocaine Gel Solution #13 LEFT MEDIAL PLANTAR -Current Size (cm) - Length 1.0 1.4 -Current Size (cm) - Width 1.0 1.6 -Current Size (cm) - Depth 0.4 0.4 -Total Square Cm 1.00 2.24 -Photo Taken No No -Epithelialization None Present -Tunneling No -Undermining/Tunneling No -Circular Undermining No -Exudate Amt Medium Small -Exudate Type Serosanguineous -Wound Margin Thickened & Thickened Rolled Under -Granulation Amt Medium (34-66%) Large (67-100%) -Granulation Quality [place] -Slough/Fibrin Yes -Necrosis Amt Medium (34-66%) Large (67-100%) -Necrotic Tissue Type Adherent Slough Adherent Slough -Structure Exposed N/A -Texture (Maria M-wound Skin Appearance) Callus Scarring -Moisture (Maria M-wound Skin Appearance) Weeping Maceration -Color (Maria M-wound Skin Appearance) No Abnormality Hemosiderin Staining -Temperature (Maria M-wound Skin No Abnormality Appearance) (Pt Warm) -Tenderness on Palpation (Maria M-wound No Skin Appearance) -Ulcer Cleansing Soap and Water Wound Cleanser -Foul Odor after Cleansing No -Anesthetic Used 5% Lidocaine 4% Lidocaine Gel Solution Right Calf (cm) 43.5 Right Ankle (cm) 24.2 WC - Nurse 2 - General Ulcer CM Notes Start: 02/21/21 13:30 Freq: Status: Active Protocol: Activity Type Activity Date Activity User E-Sign Co-Sign Detail Recorded Client Recorded Date Recorded By Document 02/21/21 14:06 [id number] 02/21/21 14:17 Document 02/28/21 14:47 [id number] 02/28/21 15:26 02/21/21 02/28/21 14:06 14:47 Wound Center Nurse 2 18-right medial ankle -Time 14:06 14:48 -Correct Patient Yes Yes -Correct Side, Site, Position Yes Yes -Correct Procedure Yes Yes -Procedure Performed Yes Yes -Type of Procedure Debridement Debridement -Clinical Debridement Subcutaneous Subcutaneous -Tissue Removed Subcutaneous Subcutaneous -Post Debridement (cm) - Length 0.5 0.3 -Post Debridement (cm) - Width 0.5 0.3 -Post Debridement (cm) - Depth 0.3 0.1 -Total Square (Post) (cm) 0.25 0.09 -Area of Debridement (cm) - Length 0.5 0.3 -Area of Debridement (cm) - Width 0.5 0.3 -Total Square (Area) (cm) 0.25 0.09 -Tunneling No No -Undermining/Tunneling No -Circular Undermining No No -Wound/Ulcer Outcome Not Healed Not Healed -Ulcer Cleansing Rinsed/ Rinsed/ Irrigated with Irrigated with Saline Saline -Foul Odor after Cleansing No No -Bioengineered Tissue No No -Bleeding Controlled with Pressure Pressure -Offloading No No -Treatment Response Procedure Procedure Tolerated Well Tolerated Well -Debridement - Subq, 1st 20sq cm Yes Yes #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 -Time 14: 14:49 -Correct Patient Yes Yes -Correct Side, Site, Position Yes Yes -Correct Procedure Yes Yes -Procedure Performed Yes Yes -Type of Procedure Debridement Debridement -Clinical Debridement Subcutaneous Subcutaneous -Tissue Removed Subcutaneous Subcutaneous -Post Debridement (cm) - Length 1 1.5 -Post Debridement (cm) - Width 1 0.4 -Post Debridement (cm) - Depth 0.1 0.1 -Total Square (Post) (cm) 1 0.60 -Area of Debridement (cm) - Length 1 1.5 -Area of Debridement (cm) - Width 1 0.4 -Total Square (Area) (cm) 1 0.60 -Tunneling No No -Undermining/Tunneling No No -Circular Undermining No No -Wound/Ulcer Outcome Not Healed Not Healed -Ulcer Cleansing Rinsed/ Rinsed/ Irrigated with Irrigated with Saline Saline -Foul Odor after Cleansing No No -Bioengineered Tissue No No -Bleeding Controlled with Pressure Pressure -Offloading No No -Treatment Response Procedure Procedure Tolerated Well Tolerated Well -Debridement - Subq, 1st 20sq cm No No #13 LEFT MEDIAL PLANTAR -Time 14: 14:50 -Correct Patient Yes Yes -Correct Side, Site, Position Yes Yes -Correct Procedure Yes Yes -Procedure Performed Yes Yes -Type of Procedure Debridement Debridement -Clinical Debridement Subcutaneous Subcutaneous -Tissue Removed Dermis Subcutaneous -Post Debridement (cm) - Length 1.7 1.5 -Post Debridement (cm) - Width 1.8 1.6 -Post Debridement (cm) - Depth 0.3 0.4 -Total Square (Post) (cm) 3.06 2.40 -Area of Debridement (cm) - Length 1.7 1.5 -Area of Debridement (cm) - Width 1.8 1.6 -Total Square (Area) (cm) 3.06 2.40 -Tunneling No No -Undermining/Tunneling No No -Circular Undermining No No -Wound/Ulcer Outcome Not Healed Not Healed -Ulcer Cleansing Rinsed/ Rinsed/ Irrigated with Irrigated with Saline Saline -Foul Odor after Cleansing No No -Bioengineered Tissue Yes Yes -Type of Bioengineered Tissue Epifix Epifix -Expiration Date 10/23/25 11/20/25 -Product Lot Number [id number] -Percent Used 100 100 -Lot number of Saline Used [id number] -Bleeding Controlled with Pressure Pressure -Offloading Yes Yes -Type of Offloading Total Contact Total Contact Cast (TCC) - Cast (TCC) - Left ($) Left ($) -Treatment Response Procedure Procedure Not Tolerated Well Tolerated Well -Debridement - Subq, 1st 20sq cm No No -Apply Skin Sub - 1st 25 sq cm - Feet 1 1 -Epifix (per sq cm) 4 4 Pain Scale: 0-10 Numeric Is Patient Pain Free? Yes Yes - Nurse 3 - General Ulcer D/C NN Start: 02/21/21 13:30 Freq: Status: Active Protocol: Activity Type Activity Date Activity User E-Sign Co-Sign Detail Recorded Client Recorded Date Recorded By Document 02/21/21 14:49 RB Desktop 02/21/21 14:51 RB Document 02/28/21 16:03 RB [id number] 02/28/21 16:04 RB 02/21/21 02/28/21 14:49 16:03 Wound Care Nurse 3 18-right medial ankle -Ulcer Cleansing Wound Cleanser -Primary Dressing Applied NonAdherent Contact Layer -Other Dressing HYDROGEL [email or web address] -Primary Dressing Covered/Secured with Dry Gauze,Dry Dry Gauze,Dry Gauze & Roll Gauze & Roll Gauze,Secured Gauze,Secured with Tape with Tape #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 -Ulcer Cleansing Wound Cleanser -Primary Dressing Applied NonAdherent Contact Layer -Other Dressing HYDROGEL hydrogel -Primary Dressing Covered/Secured with Dry Gauze,Dry Dry Gauze,Dry Gauze & Roll Gauze & Roll Gauze,Secured Gauze,Secured with Tape with Tape #13 LEFT MEDIAL PLANTAR -Other Dressing PRIMARY TCC primary layer of TCC Right -Tubular Bandage Single Layer Single Layer -Size of Tubigrip Used Size E Size F -Size E ($) 1 -Size F ($) 1 Treatment Response Procedure Tolerated Well Pain Scale: 0-10 Numeric Is Patient Pain Free? Yes Yes WC - Visit Discharge Discharge Condition Stable Stable Ambulatory Status Ambulatory Ambulatory Transportation Private Auto Private Auto Medication Reconcilliation completed & No No provided to patient/care provider Clinical Summary of Care Provided Yes Yes Wound debrided: plantar left foot Wound Grade/Stage: 1 Type of Debridement: Excisional debridement Anesthesia Used: 4% Lidocaine Solution Depth: in the subcutaneous layer Percentage of wound debrided: 100 Instrument Used: #15 blade Tissue Removed: fibrous, devitalized subcutaneous, biofilm, slough Severity: Fat Layer Exposed Amount of bleeding with debridement: Mild Bleeding Controlled with: Pressure Patient tolerated procedure: Patient tolerated procedure well Assessment/Plan Assessment/Plan (1) 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: CODE(S): L97.912 - Non-pressure chronic ulcer of unspecified part of right lower leg with fat layer exposed (2) Non-pressure chronic ulcer of other part of left foot with fat layer exposed: CODE(S): L97.522 - Non-pressure chronic ulcer of other part of left foot with fat layer exposed (3) Type 2 diabetes mellitus with diabetic polyneuropathy: CODE(S): E11.42 - Type 2 diabetes mellitus with diabetic polyneuropathy QUALIFIERS: Qualified Code(s): Z79.4 - ferry terminal agent (current) use of insulin (4) Difficulty walking: CODE(S): R26.2 - Difficulty in walking, not elsewhere classified (5) Debility: CODE(S): R53.81 - Other malaise (6) Localized edema: CODE(S): R60.0 - Localized edema (7) Obesity: CODE(S): E66.9 - Obesity, unspecified QUALIFIERS: Obesity type: due to excess calories Obesity classification: adult class 3 (BMI >= 40) Serious obesity comorbidity presence: with serious comorbidity Body mass index: BMI 45.0-49.9 Qualified Code(s): E66.01 - Morbid (severe) obesity due to excess calories; Z68.42 - Body mass index [BMI] 45.0-49.9, adult (8) Delayed wound healing: CODE(S): T14.8XXD - Other injury of unspecified body region, subsequent encounter PLAN: Procedure- Location: right leg and medial ankle grade 1 Excisional debridement performed Anesthesia: 5% lidocaine plain Debridement layer: subcutaneous Amount of debridement: 10% leg cluster , 100% medial ankle location Instrumentation used: 15 blade Tissue debrided: fibrous, devitalized subcutaneous, biofilm, slough Exposed tissue: fat layer Bleeding: mild Hemostasis controlled: pressure The patient tolerated the procedure well I reviewed and discussed his case. Subcutaneous excisional debridement was performed as noted in the clinical panel to the left foot and the right leg/medial ankle. Edema noted and has been addressed. To elevate and reduce salt intake. To continue with Tubigrip compression garments. To change right leg / ankle dressings with adaptic and hydrogel I recommend application of advanced wound healing product to the left foot. Prior authorization was confirmed. The indications, benefits, anticipated application and healing time management were reviewed in detail. Verbal consent was obtained in the procedure for today. Epi fix was applied according to standard protocol and was further secured with a wound veil and Steri-Strips to the left foot. He tolerated this well. Hydrogel was applied to other wound sites of the right medial ankle and leg cluster; to change daily. The application of advanced wound healing product is medically necessary for limb salvage. He has tried other conservative care without healed status. 100% of the product was utilized. Verbal consent was obtained for application of left total contact cast. This was applied according to standard protocol in a rectus position and well-padded manner. He tolerated this well. He was advised to keep this clean, dry, and intact until follow-up next week. To call if the cast gets wet or problematic. To wash limbs with soap and water. To avoid soaking activities. I discussed the need for serious offloading for limb salvage purposes. He has tried various shoes and walking boots. He has struggled with the use of such as a walker of a knee roller and has impaired gait. An electric power wheelchair (extra width-heavy duty) is also an option and at this time I recommend this. The CPT code for this device is K0807. This is medically necessary due to his bilateral lower extremity non weightbearing status, he lives alone and does not have assistance, he is a fall risk, and prolonged delayed wound healing is limb and life threatening. Updated prescription was provided again at previous visit. He is now better communicating this plan with his insurance company and has also located a durable medical biller coder location to proceed forward with this service. His noninvasive vascular studies were reviewed from 05-04-2020 which were normal and intervention was previously not recommended. Urine he had bilateral arterial duplex and was advised to follow-up 1 year for updated exam. I reviewed Dr. Bonilla's note from June 14, 2020. To continue to work on decreasing glucose levels. He has a history of hyperglycemia. His last A1c was 8.8% in October 2020. To continue follow-up with primary care physician. To continue to follow-up with nutritional services. To continue to follow-up as advised. He is currently making adjustments with his nutritional habits. He also follows up with planer mill grader, Dr. Arteaga, who is working with him to reduce his hemoglobin A1c with medication and behavioral changes. Smoking cessation was discussed in detail and he was advised on the healing impairment associated with this. To continue with his smoking cessation program. He denies current tobacco use. I also recommend discontinuation of nicotine products for this also contributes to small vessel contraction. He is currently undergoing advanced wound healing product application. If this fails the following options exist: Proceeding with a palliative wound care plan which he follows up every 2 to 4 weeks and the goal is to keep the ulcers noninfected and stable, below-knee amputation, revisional transmetatarsal amputation with rotational skin flap. Prognosis is guarded with ongoing glucose elevation and inability to comply with nonweightbearing standards. I answered all of his questions today. To return to clinic in 1 week or call sooner if questions, concerns, or progressive worsening. Note: [employer] speech recognition side splitter software was used to create portions of this document. Sound-alike and misspelled words, as well as other side splitter errors may be contained in the documentation.
[2021-03-07 13:30] VITALS: BP 144/79; PULSE 99; RESP 22; TEMP 37.1; BMI 48.5
--- NOTE | 2021-03-07 16:27 | PN.PCM_ITS ---
History of Present Illness Date of Service: 03/07/21 Chief Complaint: Diabetic left foot ulceration, [place] Grade 3 right leg ulcers right medial ankle ulcer History of Wound: This 65-year-old male with multiple comorbidities was seen today for left foot ulcer that is very chronic. He was also seen for right leg and medial ankle ulcers. He denies diarrhea, fever, chill, nausea, vomiting. He denies redness or odor. He denies calf pain. He has debility and difficulty walking. He is trying to get approved for an electric wheelchair because ambulation is limiting his ability to heal his foot ulcers by placing routine weight on these. He tolerated his total contact cast well last week. His treatment plan is medically necessary for limb and life salvage. He relates he noticed some skin color change and peeling to his top of the right second toe however did not notice any drainage or open wound. He denies trauma. He denies toe pain right foot Progress of Wound: stable Objective Data Objective Data Vital Signs: Vital Signs Temp Pulse Resp BP 98.7 F 99 22 H 144/79 H 03/07/21 13:30 03/07/21 13:30 03/07/21 13:30 03/07/21 13:30 Weight: 147.418 kg Body Mass Index (BMI) 48.5 Physical Exam Const alert and oriented x3 General Appearance: cooperative HEENT normocephalic Extremity Extremity Narrative: Left transmetatarsal amputation Muscle wasting Compartments soft to palpate bilateral lower extremities No bogginess or fluctuance on palpation General Extremity: edema and no tenderness to palpation of joints or extremities; Negative for cyanosis Skin Skin Narrative: No purulence, erythema, streaking, odor, infection. The right leg ulcer sites have healthier moisture and granulation tissue development. His left foot ulcer also has a healthy granular base today with reduced peripheral callus. No necrosis, deep tissue exposure, odor or maceration. His skin to the bilateral lower extremities is hairless and atrophic. There is a new skin discontinuity to the dorsal second toe as a pale granular base without exposure of deep tissue or signs of infection or bogginess or fluctuance. General Skin Exam: Negative for erythema Neuro Neuro Narrative: Lack of normal epicritic sensation to light touch is consistent with neuropathic status bilateral lower extremities Psych cooperative and affect normal Debridement Note Debridement Note Post-Debridement Measurements and Additional Note: Post-Debridement Measurements/Treatment WC - Nurse 1 - General Ulcer Assessment Start: 02/21/21 13:30 Freq: Status: Active Protocol: WC.LOWEXT Activity Type Activity Date Activity User E-Sign Co-Sign Detail Recorded Client Recorded Date Recorded By Document 02/21/21 13:30 PL [id number] 02/21/21 13:46 PL Document 02/28/21 14:14 DL [id number] 02/28/21 14:32 DL Document 03/07/21 13:30 DL [id number] 03/07/21 13:41 DL 02/21/21 02/28/21 03/07/21 13:30 14:14 13:30 WC - Today's Visit Information Type of service Follow-up Visit Follow-up Visit Follow-up Visit (Physician/INDUCTION 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 (Physician/INDUCTION 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 (Physician/INDUCTION 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 ) ) ) Arrival Mode Cane Ambulatory Ambulatory,Cane Transfer Assistance None None None Patient Identification Verified (Name & Yes Yes Yes ) Patient Requires Transmission-Based No No No Precautions Safety Precautions NA Finger Stick Blood Sugar(mg/dl) (if 185 186 indicated): Blood Sugar Stated by Stated by Patient Patient Height and Weight Body Mass Index (BMI) 48.5 48.5 48.5 BMI Classification Obese Obese Obese Vital Signs Temperature (97.8 F-99.1 F) 97.2 F L 98.4 F 98.7 F Temperature Source Temporal Temporal Temporal Pulse Rate (60-100) 98 91 99 Pulse Location Monitor Monitor Respiratory Rate (12-18) 18 22 H 22 H Respiratory rate source Observation Observation Blood Pressure (90/60-120/80) 157/71 H 150/70 H 144/79 H Blood Pressure Mean (mm Hg) 99 96 100 Source Monitor Monitor History Since Last Visit- (Skip if this is Patient's initial visit) Have you changed medications since your No No No last visit? Any new allergies or adverse reactions No No No Had a fall/change in ADL's that may No No No increase risk of falls Signs or symptoms of abuse and/or No No No neglect since last visit Have you been in the hospital since your No No No last visit? Has dressing in place as prescribed Yes Yes Yes Has compression in place as prescribed Yes N/A Yes Has offloadiing in place as prescribed Yes Yes Experienced any changes in pain level or No No No management Left Footwear Total Contact Total Contact Cast Cast Right Footwear Regular Shoe Pain Scale: 0-10 Numeric Is Patient Pain Free? Yes Yes Yes WC - Nurse 1 - General Ulcer Measurement Start: 02/21/21 13:30 Freq: Status: Active Protocol: Activity Type Activity Date Activity User E-Sign Co-Sign Detail Recorded Client Recorded Date Recorded By Document 02/21/21 13:30 PL [id number] 02/21/21 13:46 PL Document 02/28/21 14:14 DL [id number] 02/28/21 14:32 DL Document 03/07/21 13:30 DL [id number] 03/07/21 13:41 DL 02/21/21 02/28/21 03/07/21 13:30 14:14 13:30 Wound Center Nurse 1 18-right medial ankle -Current Size (cm) - Length 0.5 0.3 0.1 -Current Size (cm) - Width 0.4 0.2 0.1 -Current Size (cm) - Depth 0.3 0.1 0.1 -Total Square Cm 0.20 0.06 0.01 -Photo Taken No No No -Epithelialization None Present -Tunneling No -Undermining/Tunneling No -Circular Undermining No -Exudate Amt Medium None Present None Present -Exudate Type Serosanguineous -Wound Margin Thickened & Thickened Thickened Rolled Under -Granulation Amt Small (1-33%) Small (1-33%) Small (1-33%) -Granulation Quality [place] -Slough/Fibrin Yes -Necrosis Amt Large (67-100%) Small (1-33%) Small (1-33%) -Necrotic Tissue Type Adherent Slough Adherent Slough Adherent Slough -Structure Exposed N/A N/A -Texture (Maria M-wound Skin Appearance) Callus Scarring Scarring -Moisture (Maria M-wound Skin Appearance) No Abnormality Dry/Scaly Dry/Scaly -Color (Maria M-wound Skin Appearance) No Abnormality Hemosiderin No Abnormality Staining -Temperature (Maria M-wound Skin No Abnormality No Abnormality No Abnormality Appearance) (Pt Warm) (Pt Warm) (Pt Warm) -Tenderness on Palpation (Maria M-wound No No Skin Appearance) -Ulcer Cleansing Soap and Water Wound Cleanser Wound Cleanser -Foul Odor after Cleansing Yes, Due to No Product Use -Anesthetic Used 5% Lidocaine 4% Lidocaine 4% Lidocaine Gel Solution 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 -Combined with other wound No -Current Size (cm) - Length 10 15 14.2 -Current Size (cm) - Width 1.0 7 1 -Current Size (cm) - Depth 0.1 0.1 0.1 -Total Square Cm 10.0 105 14.2 -Photo Taken No No No -Epithelialization Large 67-100% -Tunneling No -Undermining/Tunneling No -Circular Undermining No -Exudate Amt Medium Small Small -Exudate Type Serosanguineous Serosanguineous Serosanguineous -Wound Margin Distinct, Indistinct, Non Outline -Visible Attached -Granulation Amt Medium (34-66%) Large (67-100%) Medium (34-66%) -Granulation Quality [place] -Slough/Fibrin Yes -Necrosis Amt Medium (34-66%) Small (1-33%) Medium (34-66%) -Necrotic Tissue Type Adherent Slough Adherent Slough Adherent Slough -Structure Exposed N/A N/A -Texture (Maria M-wound Skin Appearance) No Abnormality Scarring Scarring -Moisture (Maria M-wound Skin Appearance) No Abnormality Dry/Scaly Dry/Scaly -Color (Maria M-wound Skin Appearance) No Abnormality Hemosiderin Hemosiderin Staining Staining -Temperature (Maria M-wound Skin No Abnormality No Abnormality No Abnormality Appearance) (Pt Warm) (Pt Warm) (Pt Warm) -Tenderness on Palpation (Maria M-wound No No Skin Appearance) -Ulcer Cleansing Rinsed/ Wound Cleanser Wound Cleanser Irrigated with Saline -Foul Odor after Cleansing No No Yes, Due to Product Use -Anesthetic Used 5% Lidocaine 4% Lidocaine 4% Lidocaine Gel Solution Solution #13 LEFT MEDIAL PLANTAR -Current Size (cm) - Length 1.0 1.4 1.5 -Current Size (cm) - Width 1.0 1.6 1.5 -Current Size (cm) - Depth 0.4 0.4 0.6 -Total Square Cm 1.00 2.24 2.25 -Photo Taken No No No -Epithelialization None Present -Tunneling No -Undermining/Tunneling No -Circular Undermining No -Exudate Amt Medium Small Medium -Exudate Type Serosanguineous -Wound Margin Thickened & Thickened Thickened Rolled Under -Granulation Amt Medium (34-66%) Large (67-100%) None Present (0 %) -Granulation Quality [place] -Slough/Fibrin Yes -Necrosis Amt Medium (34-66%) Large (67-100%) Large (67-100%) -Necrotic Tissue Type Adherent Slough Adherent Slough Adherent Slough -Structure Exposed N/A N/A -Texture (Maria M-wound Skin Appearance) Callus Scarring Callus,Scarring -Moisture (Maria M-wound Skin Appearance) Weeping Maceration Maceration -Color (Maria M-wound Skin Appearance) No Abnormality Hemosiderin Hemosiderin Staining Staining -Temperature (Maria M-wound Skin No Abnormality No Abnormality Appearance) (Pt Warm) (Pt Warm) -Tenderness on Palpation (Maria M-wound No No Skin Appearance) -Ulcer Cleansing Soap and Water Wound Cleanser Wound Cleanser -Foul Odor after Cleansing No No -Anesthetic Used 5% Lidocaine 4% Lidocaine 4% Lidocaine Gel Solution Solution Right Calf (cm) 43.5 42.5 Right Ankle (cm) 24.2 23.4 WC - Nurse 2 - General Ulcer CM Notes Start: 02/21/21 13:30 Freq: Status: Active Protocol: Activity Type Activity Date Activity User E-Sign Co-Sign Detail Recorded Client Recorded Date Recorded By Document 02/21/21 14:06 [id number] 02/21/21 14:17 Document 02/28/21 14:47 [id number] 02/28/21 15:26 02/21/21 02/28/21 14:06 14:47 Wound Center Nurse 2 18-right medial ankle -Time 14:06 14:48 -Correct Patient Yes Yes -Correct Side, Site, Position Yes Yes -Correct Procedure Yes Yes -Procedure Performed Yes Yes -Type of Procedure Debridement Debridement -Clinical Debridement Subcutaneous Subcutaneous -Tissue Removed Subcutaneous Subcutaneous -Post Debridement (cm) - Length 0.5 0.3 -Post Debridement (cm) - Width 0.5 0.3 -Post Debridement (cm) - Depth 0.3 0.1 -Total Square (Post) (cm) 0.25 0.09 -Area of Debridement (cm) - Length 0.5 0.3 -Area of Debridement (cm) - Width 0.5 0.3 -Total Square (Area) (cm) 0.25 0.09 -Tunneling No No -Undermining/Tunneling No -Circular Undermining No No -Wound/Ulcer Outcome Not Healed Not Healed -Ulcer Cleansing Rinsed/ Rinsed/ Irrigated with Irrigated with Saline Saline -Foul Odor after Cleansing No No -Bioengineered Tissue No No -Bleeding Controlled with Pressure Pressure -Offloading No No -Treatment Response Procedure Procedure Tolerated Well Tolerated Well -Debridement - Subq, 1st 20sq cm Yes Yes #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 -Time 14: 14:49 -Correct Patient Yes Yes -Correct Side, Site, Position Yes Yes -Correct Procedure Yes Yes -Procedure Performed Yes Yes -Type of Procedure Debridement Debridement -Clinical Debridement Subcutaneous Subcutaneous -Tissue Removed Subcutaneous Subcutaneous -Post Debridement (cm) - Length 1 1.5 -Post Debridement (cm) - Width 1 0.4 -Post Debridement (cm) - Depth 0.1 0.1 -Total Square (Post) (cm) 1 0.60 -Area of Debridement (cm) - Length 1 1.5 -Area of Debridement (cm) - Width 1 0.4 -Total Square (Area) (cm) 1 0.60 -Tunneling No No -Undermining/Tunneling No No -Circular Undermining No No -Wound/Ulcer Outcome Not Healed Not Healed -Ulcer Cleansing Rinsed/ Rinsed/ Irrigated with Irrigated with Saline Saline -Foul Odor after Cleansing No No -Bioengineered Tissue No No -Bleeding Controlled with Pressure Pressure -Offloading No No -Treatment Response Procedure Procedure Tolerated Well Tolerated Well -Debridement - Subq, 1st 20sq cm No No #13 LEFT MEDIAL PLANTAR -Time 14: 14:50 -Correct Patient Yes Yes -Correct Side, Site, Position Yes Yes -Correct Procedure Yes Yes -Procedure Performed Yes Yes -Type of Procedure Debridement Debridement -Clinical Debridement Subcutaneous Subcutaneous -Tissue Removed Dermis Subcutaneous -Post Debridement (cm) - Length 1.7 1.5 -Post Debridement (cm) - Width 1.8 1.6 -Post Debridement (cm) - Depth 0.3 0.4 -Total Square (Post) (cm) 3.06 2.40 -Area of Debridement (cm) - Length 1.7 1.5 -Area of Debridement (cm) - Width 1.8 1.6 -Total Square (Area) (cm) 3.06 2.40 -Tunneling No No -Undermining/Tunneling No No -Circular Undermining No No -Wound/Ulcer Outcome Not Healed Not Healed -Ulcer Cleansing Rinsed/ Rinsed/ Irrigated with Irrigated with Saline Saline -Foul Odor after Cleansing No No -Bioengineered Tissue Yes Yes -Type of Bioengineered Tissue Epifix Epifix -Expiration Date 10/23/25 11/20/25 -Product Lot Number [id number] -Percent Used 100 100 -Lot number of Saline Used [id number] -Bleeding Controlled with Pressure Pressure -Offloading Yes Yes -Type of Offloading Total Contact Total Contact Cast (TCC) - Cast (TCC) - Left ($) Left ($) -Treatment Response Procedure Procedure Not Tolerated Well Tolerated Well -Debridement - Subq, 1st 20sq cm No No -Apply Skin Sub - 1st 25 sq cm - Feet 1 1 -Epifix (per sq cm) 4 4 Pain Scale: 0-10 Numeric Is Patient Pain Free? Yes Yes - Nurse 3 - General Ulcer D/C NN Start: 02/21/21 13:30 Freq: Status: Active Protocol: Activity Type Activity Date Activity User E-Sign Co-Sign Detail Recorded Client Recorded Date Recorded By Document 02/21/21 14:49 RB Desktop 02/21/21 14:51 RB Document 02/28/21 16:03 RB [id number] 02/28/21 16:04 RB Document 03/07/21 14:13 RB [id number] 03/07/21 14:15 RB 02/21/21 02/28/21 03/07/21 14:49 16:03 14:13 Wound Care Nurse 3 18-right medial ankle -Ulcer Cleansing Wound Cleanser -Primary Dressing Applied NonAdherent Contact Layer -Other Dressing HYDROGEL [email or web address] -Primary Dressing Covered/Secured with Dry Gauze,Dry Dry Gauze,Dry Gauze & Roll Gauze & Roll Gauze,Secured Gauze,Secured with Tape with Tape #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 -Ulcer Cleansing Wound Cleanser -Primary Dressing Applied NonAdherent Contact Layer -Other Dressing HYDROGEL hydrogel hydrogel -Primary Dressing Covered/Secured with Dry Gauze,Dry Dry Gauze,Dry Dry Gauze,Dry Gauze & Roll Gauze & Roll Gauze & Roll Gauze,Secured Gauze,Secured Gauze,Secured with Tape with Tape with Tape #13 LEFT MEDIAL PLANTAR -Other Dressing PRIMARY TCC primary layer TCC primary of TCC layer Right -Tubular Bandage Single Layer Single Layer Single Layer -Size of Tubigrip Used Size E Size F Size F -Size E ($) 1 -Size F ($) 1 1 Treatment Response Procedure Tolerated Well Pain Scale: 0-10 Numeric Is Patient Pain Free? Yes Yes Yes WC - Visit Discharge Discharge Condition Stable Stable Stable Ambulatory Status Ambulatory Ambulatory Ambulatory Transportation Private Auto Private Auto Private Auto Medication Reconcilliation completed & No No No provided to patient/care provider Clinical Summary of Care Provided Yes Yes Yes Wound debrided: leg cluster right and new dorsal 2nd toe right Wound Grade/Stage: 1 Type of Debridement: Excisional debridement Anesthesia Used: 4% Lidocaine Solution Depth: in the subcutaneous layer Percentage of wound debrided: 100 (2nd toe) and 10 (leg cluster) Instrument Used: #15 blade Tissue Removed: fibrous, devitalized subcutaneous, biofilm, slough Severity: Fat Layer Exposed Amount of bleeding with debridement: Mild Bleeding Controlled with: Pressure Patient tolerated procedure: Patient tolerated procedure well Assessment/Plan Assessment/Plan (1) 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: CODE(S): L97.912 - Non-pressure chronic ulcer of unspecified part of right lower leg with fat layer exposed (2) Non-pressure chronic ulcer of other part of left foot with fat layer exposed: CODE(S): L97.522 - Non-pressure chronic ulcer of other part of left foot with fat layer exposed (3) Type 2 diabetes mellitus with diabetic polyneuropathy: CODE(S): E11.42 - Type 2 diabetes mellitus with diabetic polyneuropathy QUALIFIERS: Qualified Code(s): Z79.4 - FPC (current) use of insulin (4) Difficulty walking: CODE(S): R26.2 - Difficulty in walking, not elsewhere classified (5) Debility: CODE(S): R53.81 - Other malaise (6) Localized edema: CODE(S): R60.0 - Localized edema (7) Obesity: CODE(S): E66.9 - Obesity, unspecified QUALIFIERS: Obesity type: due to excess calories Obesity classification: adult class 3 (BMI >= 40) Serious obesity comorbidity presence: with serious comorbidity Body mass index: BMI 45.0-49.9 Qualified Code(s): E66.01 - Morbid (severe) obesity due to excess calories; Z68.42 - Body mass index [BMI] 45.0-49.9, adult (8) Delayed wound healing: CODE(S): T14.8XXD - Other injury of unspecified body region, subsequent encounter (9) Ulcer of right foot with fat layer exposed: CODE(S): L97.512 - Non-pressure chronic ulcer of other part of right foot with fat layer exposed PLAN: Procedure- Location: left foot grade 1 Excisional debridement performed Anesthesia: 5% lidocaine plain Debridement layer: subcutaneous Amount of debridement: 10% leg cluster , 100% medial ankle location Instrumentation used: 15 blade Tissue debrided: fibrous, devitalized subcutaneous, biofilm, slough Exposed tissue: fat layer Bleeding: mild Hemostasis controlled: pressure The patient tolerated the procedure well I reviewed and discussed his case. Subcutaneous excisional debridement was performed as noted in the clinical panel to the left foot and the right leg/medial ankle and new dosal right second toe ulcer. It is noted his right medial ankle ulcer site has healed Edema noted and has been addressed. To elevate and reduce salt intake. To continue with Tubigrip compression garments. To change right leg / ankle dressings with adaptic and hydrogel I recommend application of advanced wound healing product to the left foot. Prior authorization was confirmed. The indications, benefits, anticipated application and healing time management were reviewed in detail. Verbal consent was obtained in the procedure for today. Epi fix was applied according to standard protocol and was further secured with a wound veil and Steri-Strips to the left foot. He tolerated this well. Hydrogel was applied to other wound sites of the right medial ankle and leg cluster; to change daily. The application of advanced wound healing product is medically necessary for limb salvage. He has tried other conservative care without healed status. 100% of the product was utilized. Verbal consent was obtained for application of left total contact cast. This was applied according to standard protocol in a rectus position and well-padded manner. He tolerated this well. He was advised to keep this clean, dry, and intact until follow-up next week. To call if the cast gets wet or problematic. To wash limbs with soap and water. To avoid soaking activities. I discussed the need for serious offloading for limb salvage purposes. He has tried various shoes and walking boots. He has struggled with the use of such as a walker of a knee roller and has impaired gait. An electric power wheelchair (extra width-heavy duty) is also an option and at this time I recommend this. The CPT code for this device is K0807. This is medically necessary due to his bilateral lower extremity non weightbearing status, he lives alone and does not have assistance, he is a fall risk, and prolonged delayed wound healing is limb and life threatening. Updated prescription was provided again at previous visit. He is now better communicating this plan with his insurance company and has also located a durable medical technologist hematology location to proceed forward with this service. His noninvasive vascular studies were reviewed from 05-04-2020 which were normal and intervention was previously not recommended. Urine he had bilateral arterial duplex and was advised to follow-up 1 year for updated exam. I reviewed Dr. Bonilla's note from June 14, 2020. To continue to work on decreasing glucose levels. He has a history of hyperglycemia. His last A1c was 8.8% in October 2020. To continue follow-up with primary care physician. To continue to follow-up with nutritional services. To continue to follow-up as advised. He is currently making adjustments with his nutritional habits. He also follows up with finance business partner, Dr. Arteaga, who is working with him to reduce his hemoglobin A1c with medication and behavioral changes. Smoking cessation was discussed in detail and he was advised on the healing impairment associated with this. To continue with his smoking cessation program. He denies current tobacco use. I also recommend discontinuation of nicotine products for this also contributes to small vessel contraction. He is currently undergoing advanced wound healing product application. If this fails the following options exist: Proceeding with a palliative wound care plan which he follows up every 2 to 4 weeks and the goal is to keep the ulcers noninfected and stable, below-knee amputation, revisional transmetatarsal amputation with rotational skin flap. Prognosis is guarded with ongoing glucose elevation and inability to comply with nonweightbearing standards. I answered all of his questions today. To return to clinic in 1 week or call sooner if questions, concerns, or progressive worsening. Note: [employer] speech recognition bridge opener software was used to create portions of this document. Sound-alike and misspelled words, as well as other bridge opener errors may be contained in the documentation. The medical decision making level is low. There is noted low risk of morbidity after considering this treatment plan and diagnostic data. The problems addressed require a low medical decision making level which includes two or more minor problems, a stable chronic illness, or an acute uncomplicated illness or injury.
[2021-03-14 13:07] VITALS: RESP 18; TEMP 36.6; BMI 48.5
--- NOTE | 2021-03-14 13:45 | PN.PCM_ITS ---
History of Present Illness Date of Service: 03/14/21 Chief Complaint: Diabetic left foot ulceration, [place] Grade 3 right leg ulcers Right second toe ulcer History of Wound: This 65-year-old male with multiple comorbidities was seen today for left foot ulcer that is very chronic. He was also seen for right leg and right second toe ulcers. He denies diarrhea, fever, chill, nausea, vomiting. He denies redness or odor. He denies calf pain. He has debility and difficulty walking. He is trying to get approved for an electric wheelchair because ambulation is limiting his ability to heal his foot ulcers by placing routine weight on these. He tolerated his total contact cast well last week however there is a crack in it noted. He relates he is less active this past week. His treatment plan is medically necessary for limb and life salvage. He relates he noticed some skin color change and peeling to his top of the right second toe however did not notice any drainage or open wound. Progress of Wound: All sites improving Objective Data Objective Data Vital Signs: Vital Signs Temp Pulse Resp BP 98 F 99 18 144/79 H 03/14/21 13:07 03/07/21 13:30 03/14/21 13:07 03/07/21 13:30 Oxygen Delivery Method Room Air Weight: 147.418 kg Body Mass Index (BMI) 48.5 Physical Exam Const alert and oriented x3 General Appearance: cooperative HEENT normocephalic Extremity Extremity Narrative: Left transmetatarsal amputation Muscle wasting Compartments soft to palpate bilateral lower extremities No bogginess or fluctuance on palpation General Extremity: edema and no tenderness to palpation of joints or extremities; Negative for cyanosis Skin Skin Narrative: No purulence, erythema, streaking, odor, infection. The right leg ulcer sites have healthier moisture and granulation tissue development. His left foot ulcer also has a healthy granular base today with reduced peripheral callus (decreased size). No necrosis, deep tissue exposure, odor or maceration. His skin to the bilateral lower extremities is hairless and atrophic. There is a skin discontinuity to the dorsal second toe as a pale granular base without exposure of deep tissue or signs of infection or bogginess or fluctuance. General Skin Exam: Negative for erythema Neuro Neuro Narrative: Lack of normal epicritic sensation to light touch is consistent with neuropathic status bilateral lower extremities Psych cooperative and affect normal Debridement Note Debridement Note Post-Debridement Measurements and Additional Note: Post-Debridement Measurements/Treatment WC - Nurse 1 - General Ulcer Assessment Start: 02/21/21 13:30 Freq: Status: Active Protocol: MARIA ESTHER Activity Type Activity Date Activity User E-Sign Co-Sign Detail Recorded Client Recorded Date Recorded By Document 02/21/21 13:30 PL [id number] 02/21/21 13:46 PL Document 02/28/21 14:14 DL [id number] 02/28/21 14:32 DL Document 03/07/21 13:30 DL [id number] 03/07/21 13:41 DL Document 03/14/21 13:07 BMF [id number] 03/14/21 13:20 BMF 02/21/21 02/28/21 03/07/21 13:30 14:14 13:30 WC - Today's Visit Information Type of service Follow-up Visit Follow-up Visit Follow-up Visit (Physician/HOST/HOSTESS GROUND (Physician/HOST/HOSTESS GROUND (Physician/HOST/HOSTESS GROUND ) ) ) Arrival Mode Cane Ambulatory Ambulatory,Cane Transfer Assistance None None None Patient Identification Verified (Name & Yes Yes Yes ) Patient Requires Transmission-Based No No No Precautions Safety Precautions NA Finger Stick Blood Sugar(mg/dl) (if 185 186 indicated): Blood Sugar Stated by Stated by Patient Patient Height and Weight Body Mass Index (BMI) 48.5 48.5 48.5 BMI Classification Obese Obese Obese Vital Signs Temperature (97.8 F-99.1 F) 97.2 F L 98.4 F 98.7 F Temperature Source Temporal Temporal Temporal Pulse Rate (60-100) 98 91 99 Pulse Location Monitor Monitor Respiratory Rate (12-18) 18 22 H 22 H Respiratory rate source Observation Observation Oxygen Delivery Method Blood Pressure (90/60-120/80) 157/71 H 150/70 H 144/79 H Blood Pressure Mean (mm Hg) 99 96 100 Source Monitor Monitor Position Blood Pressure Location History Since Last Visit- (Skip if this is Patient's initial visit) Have you changed medications since your No No No last visit? Any new allergies or adverse reactions No No No Had a fall/change in ADL's that may No No No increase risk of falls Signs or symptoms of abuse and/or No No No neglect since last visit Have you been in the hospital since your No No No last visit? Has dressing in place as prescribed Yes Yes Yes Has compression in place as prescribed Yes N/A Yes Has offloadiing in place as prescribed Yes Yes Experienced any changes in pain level or No No No management Left Footwear Total Contact Total Contact Cast Cast Right Footwear Regular Shoe Pain Scale: 0-10 Numeric Is Patient Pain Free? Yes Yes Yes 03/14/21 13:07 - Today's Visit Information Type of service Follow-up Visit (Physician/HOST/HOSTESS GROUND ) Arrival Mode Ambulatory,Cane Transfer Assistance None Patient Identification Verified (Name & Yes ) Patient Requires Transmission-Based No Precautions Safety Precautions Finger Stick Blood Sugar(mg/dl) (if 228 indicated): Blood Sugar Stated by Patient Height and Weight Body Mass Index (BMI) 48.5 BMI Classification Obese Vital Signs Temperature (97.8 F-99.1 F) 98 F Temperature Source Temporal Pulse Rate (60-100) Pulse Location Monitor Respiratory Rate (12-18) 18 Respiratory rate source Observation Oxygen Delivery Method Room Air Blood Pressure (90/60-120/80) Blood Pressure Mean (mm Hg) Source Monitor Position Sitting Blood Pressure Location Left Arm History Since Last Visit- (Skip if this is Patient's initial visit) Have you changed medications since your No last visit? Any new allergies or adverse reactions No Had a fall/change in ADL's that may No increase risk of falls Signs or symptoms of abuse and/or No neglect since last visit Have you been in the hospital since your No last visit? Has dressing in place as prescribed No Has compression in place as prescribed No Has offloadiing in place as prescribed Yes Experienced any changes in pain level or No management Left Footwear Total Contact Cast Right Footwear Regular Shoe Pain Scale: 0-10 Numeric Is Patient Pain Free? Yes - Nurse 1 - General Ulcer Measurement Start: 02/21/21 13:30 Freq: Status: Active Protocol: Activity Type Activity Date Activity User E-Sign Co-Sign Detail Recorded Client Recorded Date Recorded By Document 02/21/21 13:30 PL [id number] 02/21/21 13:46 PL Document 02/28/21 14:14 DL [id number] 02/28/21 14:32 DL Document 03/07/21 13:30 DL [id number] 03/07/21 13:41 DL Document 03/14/21 13:07 BMF [id number] 03/14/21 13:20 BMF 02/21/21 02/28/2103/07/21 13:30 14:14 13:30 Wound Center Nurse 1 #19 Right 2nd Toe -Combined with other wound -Current Size (cm) - Length -Current Size (cm) - Width -Current Size (cm) - Depth -Total Square Cm -Tunneling -Undermining/Tunneling -Circular Undermining -Exudate Amt -Exudate Type -Wound Margin -Granulation Amt -Granulation Quality -Slough/Fibrin -Necrosis Amt -Necrotic Tissue Type -Structure Exposed -Texture (Maria M-wound Skin Appearance) -Moisture (Maria M-wound Skin Appearance) -Color (Maria M-wound Skin Appearance) -Temperature (Maria M-wound Skin Appearance) -Tenderness on Palpation (Maria M-wound Skin Appearance) -Ulcer Cleansing -Foul Odor after Cleansing -Anesthetic Used 18-right medial ankle -Current Size (cm) - Length 0.5 0.3 0.1 -Current Size (cm) - Width 0.4 0.2 0.1 -Current Size (cm) - Depth 0.3 0.1 0.1 -Total Square Cm 0.20 0.06 0.01 -Photo Taken No No No -Epithelialization None Present -Tunneling No -Undermining/Tunneling No -Circular Undermining No -Exudate Amt Medium None Present None Present -Exudate Type Serosanguineous -Wound Margin Thickened & Thickened Thickened Rolled Under -Granulation Amt Small (1-33%) Small (1-33%) Small (1-33%) -Granulation Quality [place] -Slough/Fibrin Yes -Necrosis Amt Large (67-100%) Small (1-33%) Small (1-33%) -Necrotic Tissue Type Adherent Slough Adherent Slough Adherent Slough -Structure Exposed N/A N/A -Texture (Maria M-wound Skin Appearance) Callus Scarring Scarring -Moisture (Maria M-wound Skin Appearance) No Abnormality Dry/Scaly Dry/Scaly -Color (Maria M-wound Skin Appearance) No Abnormality Hemosiderin No Abnormality Staining -Temperature (Maria M-wound Skin No Abnormality No Abnormality No Abnormality Appearance) (Pt Warm) (Pt Warm) (Pt Warm) -Tenderness on Palpation (Maria M-wound No No Skin Appearance) -Ulcer Cleansing Soap and Water Wound Cleanser Wound Cleanser -Foul Odor after Cleansing Yes, Due to No Product Use -Anesthetic Used 5% Lidocaine 4% Lidocaine 4% Lidocaine Gel Solution 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 -Combined with other wound No -Current Size (cm) - Length 10 15 14.2 -Current Size (cm) - Width 1.0 7 1 -Current Size (cm) - Depth 0.1 0.1 0.1 -Total Square Cm 10.0 105 14.2 -Photo Taken No No No -Epithelialization Large 67-100% -Tunneling No -Undermining/Tunneling No -Circular Undermining No -Exudate Amt Medium Small Small -Exudate Type Serosanguineous Serosanguineous Serosanguineous -Wound Margin Distinct, Indistinct, Non Outline -Visible Attached -Granulation Amt Medium (34-66%) Large (67-100%) Medium (34-66%) -Granulation Quality [place] -Slough/Fibrin Yes -Necrosis Amt Medium (34-66%) Small (1-33%) Medium (34-66%) -Necrotic Tissue Type Adherent Slough Adherent Slough Adherent Slough -Structure Exposed N/A N/A -Texture (Maria M-wound Skin Appearance) No Abnormality Scarring Scarring -Moisture (Maria M-wound Skin Appearance) No Abnormality Dry/Scaly Dry/Scaly -Color (Maria M-wound Skin Appearance) No Abnormality Hemosiderin Hemosiderin Staining Staining -Temperature (Maria M-wound Skin No Abnormality No Abnormality No Abnormality Appearance) (Pt Warm) (Pt Warm) (Pt Warm) -Tenderness on Palpation (Maria M-wound No No Skin Appearance) -Ulcer Cleansing Rinsed/ Wound Cleanser Wound Cleanser Irrigated with Saline -Foul Odor after Cleansing No No Yes, Due to Product Use -Anesthetic Used 5% Lidocaine 4% Lidocaine 4% Lidocaine Gel Solution Solution #13 LEFT MEDIAL PLANTAR -Combined with other wound -Current Size (cm) - Length 1.0 1.4 1.5 -Current Size (cm) - Width 1.0 1.6 1.5 -Current Size (cm) - Depth 0.4 0.4 0.6 -Total Square Cm 1.00 2.24 2.25 -Photo Taken No No No -Epithelialization None Present -Tunneling No -Undermining/Tunneling No -Undermining/Tunneling Starts (O'clock ) -Undermining/Tunneling Ends (O'clock) -Maximum Distance (cm) -Circular Undermining No -Exudate Amt Medium Small Medium -Exudate Type Serosanguineous -Wound Margin Thickened & Thickened Thickened Rolled Under -Granulation Amt Medium (34-66%) Large (67-100%) None Present (0 %) -Granulation Quality [place] -Slough/Fibrin Yes -Necrosis Amt Medium (34-66%) Large (67-100%) Large (67-100%) -Necrotic Tissue Type Adherent Slough Adherent Slough Adherent Slough -Structure Exposed N/A N/A -Texture (Maria M-wound Skin Appearance) Callus Scarring Callus,Scarring -Moisture (Maria M-wound Skin Appearance) Weeping Maceration Maceration -Color (Maria M-wound Skin Appearance) No Abnormality Hemosiderin Hemosiderin Staining Staining -Temperature (Maria M-wound Skin No Abnormality No Abnormality Appearance) (Pt Warm) (Pt Warm) -Tenderness on Palpation (Maria M-wound No No Skin Appearance) -Ulcer Cleansing Soap and Water Wound Cleanser Wound Cleanser -Foul Odor after Cleansing No No -Anesthetic Used 5% Lidocaine 4% Lidocaine 4% Lidocaine Gel Solution Solution Right Calf (cm) 43.5 42.5 Right Ankle (cm) 24.2 23.4 03/14/21 13:07 Wound Center Nurse 1 #19 Right 2nd Toe -Combined with other wound No -Current Size (cm) - Length 0.5 -Current Size (cm) - Width 0.2 -Current Size (cm) - Depth 0.2 -Total Square Cm 0.10 -Tunneling No -Undermining/Tunneling No -Circular Undermining No -Exudate Amt Medium -Exudate Type Serosanguineous -Wound Margin Distinct, Outline Attached -Granulation Amt Medium (34-66%) -Granulation Quality [place] -Slough/Fibrin Yes -Necrosis Amt Small (1-33%) -Necrotic Tissue Type Adherent Slough -Structure Exposed N/A -Texture (Maria M-wound Skin Appearance) Assessed -Moisture (Maria M-wound Skin Appearance) Assessed -Color (Maria M-wound Skin Appearance) Assessed -Temperature (Maria M-wound Skin No Abnormality Appearance) (Pt Warm) -Tenderness on Palpation (Maria M-wound No Skin Appearance) -Ulcer Cleansing Wound Cleanser -Foul Odor after Cleansing No -Anesthetic Used 4% Lidocaine Solution 18-right medial ankle -Current Size (cm) - Length -Current Size (cm) - Width -Current Size (cm) - Depth -Total Square Cm -Photo Taken -Epithelialization -Tunneling -Undermining/Tunneling -Circular Undermining -Exudate Amt -Exudate Type -Wound Margin -Granulation Amt -Granulation Quality -Slough/Fibrin -Necrosis Amt -Necrotic Tissue Type -Structure Exposed -Texture (Maria M-wound Skin Appearance) -Moisture (Maria M-wound Skin Appearance) -Color (Maria M-wound Skin Appearance) -Temperature (Maria M-wound Skin Appearance) -Tenderness on Palpation (Maria M-wound Skin Appearance) -Ulcer Cleansing -Foul Odor after Cleansing -Anesthetic Used #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 -Combined with other wound No -Current Size (cm) - Length 14.3 -Current Size (cm) - Width 4.7 -Current Size (cm) - Depth 0.2 -Total Square Cm 67.21 -Photo Taken -Epithelialization -Tunneling No -Undermining/Tunneling No -Circular Undermining No -Exudate Amt Medium -Exudate Type Serosanguineous -Wound Margin Thickened -Granulation Amt Medium (34-66%) -Granulation Quality [place] -Slough/Fibrin Yes -Necrosis Amt Small (1-33%) -Necrotic Tissue Type Adherent Slough -Structure Exposed N/A -Texture (Maria M-wound Skin Appearance) Assessed -Moisture (Maria M-wound Skin Appearance) No Abnormality -Color (Maria M-wound Skin Appearance) Assessed -Temperature (Maria M-wound Skin No Abnormality Appearance) (Pt Warm) -Tenderness on Palpation (Maria M-wound No Skin Appearance) -Ulcer Cleansing Wound Cleanser -Foul Odor after Cleansing No -Anesthetic Used 4% Lidocaine Solution #13 LEFT MEDIAL PLANTAR -Combined with other wound No -Current Size (cm) - Length 1.2 -Current Size (cm) - Width 1.2 -Current Size (cm) - Depth 0.4 -Total Square Cm 1.44 -Photo Taken No -Epithelialization -Tunneling No -Undermining/Tunneling Yes -Undermining/Tunneling Starts (O'clock 8 ) -Undermining/Tunneling Ends (O'clock) 2 -Maximum Distance (cm) 0.3 -Circular Undermining -Exudate Amt Medium -Exudate Type Serosanguineous -Wound Margin Thickened -Granulation Amt Medium (34-66%) -Granulation Quality [place] -Slough/Fibrin Yes -Necrosis Amt Small (1-33%) -Necrotic Tissue Type Adherent Slough -Structure Exposed N/A -Texture (Maria M-wound Skin Appearance) Assessed,Callus -Moisture (Maria M-wound Skin Appearance) Assessed -Color (Maria M-wound Skin Appearance) Assessed -Temperature (Maria M-wound Skin No Abnormality Appearance) (Pt Warm) -Tenderness on Palpation (Maria M-wound No Skin Appearance) -Ulcer Cleansing Wound Cleanser -Foul Odor after Cleansing No -Anesthetic Used 4% Lidocaine Solution Right Calf (cm) Right Ankle (cm) WC - Nurse 2 - General Ulcer CM Notes Start: 02/21/21 13:30 Freq: Status: Active Protocol: Activity Type Activity Date Activity User E-Sign Co-Sign Detail Recorded Client Recorded Date Recorded By Document 02/21/21 14:06 [id number] 02/21/21 14:17 JF Document 02/28/21 14:47 JF [id number] 02/28/21 15:26 JF Document 03/07/21 17:31 PL [id number] 03/07/21 17:37 PL Edit Result 03/07/21 17:31 PL (1) [id number] 03/07/21 17:39 PL Edit Result 03/07/21 17:31 PL (2) [id number] 03/09/21 07:32 PL Document 03/14/21 13:26 [id number] 03/14/21 13:38 JF (1) #19 Right 2nd Toe - Time => 13:58 - Correct Patient => Yes - Correct Side, Site, Position => Yes - Correct Procedure => Yes - Procedure Performed => Yes - Type of Procedure => Debridement - Clinical Debridement => Subcutaneous - Tissue Removed => Subcutaneous - Post Debridement (cm) - Length => 0.5 - Post Debridement (cm) - Width => 0.3 - Post Debridement (cm) - Depth => 0.1 - Total Square (Post) (cm) => 0.15 - Area of Debridement (cm) - Length => 0.5 - Area of Debridement (cm) - Width => 0.3 - Total Square (Area) (cm) => 0.15 - Tunneling => No - Undermining/Tunneling => No - Circular Undermining => No - Wound/Ulcer Outcome => Not Healed - Ulcer Cleansing => Rinsed/Irrigated => with Saline - Foul Odor after Cleansing => No - Bioengineered Tissue => No - Bleeding Controlled with => Pressure - Treatment Response => Procedure => Tolerated Well - Debridement - Subq, 1st 20sq cm => No (2) #13 LEFT MEDIAL PLANTAR - Type of Offloading => Total Contact Cast => (TCC) - Left ($) 02/21/21 02/28/21 03/07/21 14:06 14:47 17:31 Wound Center Nurse 2 #19 Right 2nd Toe -Time 13:58 -Correct Patient Yes -Correct Side, Site, Position Yes -Correct Procedure Yes -Procedure Performed Yes -Type of Procedure Debridement -Clinical Debridement Subcutaneous -Tissue Removed Subcutaneous -Post Debridement (cm) - Length 0.5 -Post Debridement (cm) - Width 0.3 -Post Debridement (cm) - Depth 0.1 -Total Square (Post) (cm) 0.15 -Area of Debridement (cm) - Length 0.5 -Area of Debridement (cm) - Width 0.3 -Total Square (Area) (cm) 0.15 -Tunneling No -Undermining/Tunneling No -Circular Undermining No -Wound/Ulcer Outcome Not Healed -Ulcer Cleansing Rinsed/ Irrigated with Saline -Foul Odor after Cleansing No -Bioengineered Tissue No -Bleeding Controlled with Pressure -Offloading -Treatment Response Procedure Tolerated Well -Debridement - Subq, 1st 20sq cm No 18-right medial ankle -Time 14:06 14:48 -Correct Patient Yes Yes -Correct Side, Site, Position Yes Yes -Correct Procedure Yes Yes -Procedure Performed Yes Yes -Type of Procedure Debridement Debridement -Clinical Debridement Subcutaneous Subcutaneous -Tissue Removed Subcutaneous Subcutaneous -Post Debridement (cm) - Length 0.5 0.3 -Post Debridement (cm) - Width 0.5 0.3 -Post Debridement (cm) - Depth 0.3 0.1 -Total Square (Post) (cm) 0.25 0.09 -Area of Debridement (cm) - Length 0.5 0.3 -Area of Debridement (cm) - Width 0.5 0.3 -Total Square (Area) (cm) 0.25 0.09 -Tunneling No No -Undermining/Tunneling No -Circular Undermining No No -Wound/Ulcer Outcome Not Healed Not Healed -Ulcer Cleansing Rinsed/ Rinsed/ Irrigated with Irrigated with Saline Saline -Foul Odor after Cleansing No No -Bioengineered Tissue No No -Bleeding Controlled with Pressure Pressure -Offloading No No -Treatment Response Procedure Procedure Tolerated Well Tolerated Well -Debridement - Subq, 1st 20sq cm Yes Yes #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 -Time 14:07 14:49 13:58 -Correct Patient Yes Yes Yes -Correct Side, Site, Position Yes Yes Yes -Correct Procedure Yes Yes Yes -Procedure Performed Yes Yes Yes -Type of Procedure Debridement Debridement Debridement -Clinical Debridement Subcutaneous Subcutaneous Subcutaneous -Tissue Removed Subcutaneous Subcutaneous Subcutaneous -Post Debridement (cm) - Length 1 1.5 14.2 -Post Debridement (cm) - Width 1 0.4 1.0 -Post Debridement (cm) - Depth 0.1 0.1 0.1 -Total Square (Post) (cm) 1 0.60 14.20 -Area of Debridement (cm) - Length 1 1.5 1.4 -Area of Debridement (cm) - Width 1 0.4 1.0 -Total Square (Area) (cm) 1 0.60 1.40 -Tunneling No No No -Undermining/Tunneling No No No -Circular Undermining No No No -Wound/Ulcer Outcome Not Healed Not Healed Not Healed -Ulcer Cleansing Rinsed/ Rinsed/ Rinsed/ Irrigated with Irrigated with Irrigated with Saline Saline Saline -Foul Odor after Cleansing No No No -Bioengineered Tissue No No No -Bleeding Controlled with Pressure Pressure -Offloading No No -Treatment Response Procedure Procedure Tolerated Well Tolerated Well -Debridement - Subq, 1st 20sq cm No No No #13 LEFT MEDIAL PLANTAR -Time 14: 14:50 13:58 -Correct Patient Yes Yes Yes -Correct Side, Site, Position Yes Yes Yes -Correct Procedure Yes Yes Yes -Procedure Performed Yes Yes Yes -Type of Procedure Debridement Debridement Debridement -Clinical Debridement Subcutaneous Subcutaneous Subcutaneous -Tissue Removed Dermis Subcutaneous Subcutaneous -Post Debridement (cm) - Length 1.7 1.5 1.5 -Post Debridement (cm) - Width 1.8 1.6 1.5 -Post Debridement (cm) - Depth 0.3 0.4 0.6 -Total Square (Post) (cm) 3.06 2.40 2.25 -Area of Debridement (cm) - Length 1.7 1.5 1.5 -Area of Debridement (cm) - Width 1.8 1.6 1.5 -Total Square (Area) (cm) 3.06 2.40 2.25 -Tunneling No No No -Undermining/Tunneling No No No -Circular Undermining No No No -Wound/Ulcer Outcome Not Healed Not Healed Not Healed -Ulcer Cleansing Rinsed/ Rinsed/ Rinsed/ Irrigated with Irrigated with Irrigated with Saline Saline Saline -Foul Odor after Cleansing No No No -Bioengineered Tissue Yes Yes Yes -Type of Bioengineered Tissue Epifix Epifix Epifix -Expiration Date 10/23/25 11/20/25 11/20/25 -Product Lot Number [id number] -Percent Used 100 100 100 -Lot number of Saline Used [id number] -Bleeding Controlled with Pressure Pressure Pressure -Offloading Yes Yes -Type of Offloading Total Contact Total Contact Total Contact Cast (TCC) - Cast (TCC) - Cast (TCC) - Left ($) Left ($) Left ($) -Treatment Response Procedure Procedure Not Procedure Tolerated Well Tolerated Well Tolerated Well -Debridement - Subq, 1st 20sq cm No No No -Apply Skin Sub - 1st 25 sq cm - Feet 1 1 1 -Epifix (per sq cm) 4 4 4 Pain Scale: 0-10 Numeric Is Patient Pain Free? Yes Yes Yes 03/14/21 13:26 Wound Center Nurse 2 #19 Right 2nd Toe -Time 13:29 -Correct Patient Yes -Correct Side, Site, Position Yes -Correct Procedure Yes -Procedure Performed Yes -Type of Procedure Debridement -Clinical Debridement Subcutaneous -Tissue Removed Subcutaneous -Post Debridement (cm) - Length 0.6 -Post Debridement (cm) - Width 0.2 -Post Debridement (cm) - Depth 0.2 -Total Square (Post) (cm) 0.12 -Area of Debridement (cm) - Length 0.6 -Area of Debridement (cm) - Width 0.2 -Total Square (Area) (cm) 0.12 -Tunneling No -Undermining/Tunneling No -Circular Undermining No -Wound/Ulcer Outcome Not Healed -Ulcer Cleansing Rinsed/ Irrigated with Saline -Foul Odor after Cleansing No -Bioengineered Tissue No -Bleeding Controlled with Pressure -Offloading No -Treatment Response Procedure Tolerated Well -Debridement - Subq, 1st 20sq cm Yes 18-right medial ankle -Time -Correct Patient -Correct Side, Site, Position -Correct Procedure -Procedure Performed -Type of Procedure -Clinical Debridement -Tissue Removed -Post Debridement (cm) - Length -Post Debridement (cm) - Width -Post Debridement (cm) - Depth -Total Square (Post) (cm) -Area of Debridement (cm) - Length -Area of Debridement (cm) - Width -Total Square (Area) (cm) -Tunneling -Undermining/Tunneling -Circular Undermining -Wound/Ulcer Outcome -Ulcer Cleansing -Foul Odor after Cleansing -Bioengineered Tissue -Bleeding Controlled with -Offloading -Treatment Response -Debridement - Subq, 20sq cm #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 -Time 13:30 -Correct Patient Yes -Correct Side, Site, Position Yes -Correct Procedure Yes -Procedure Performed Yes -Type of Procedure Debridement -Clinical Debridement Subcutaneous -Tissue Removed Subcutaneous -Post Debridement (cm) - Length 3.5 -Post Debridement (cm) - Width 2 -Post Debridement (cm) - Depth 0.1 -Total Square (Post) (cm) 7.0 -Area of Debridement (cm) - Length 3.5 -Area of Debridement (cm) - Width 2 -Total Square (Area) (cm) 7.0 -Tunneling No -Undermining/Tunneling No -Circular Undermining No -Wound/Ulcer Outcome Not Healed -Ulcer Cleansing -Foul Odor after Cleansing No -Bioengineered Tissue No -Bleeding Controlled with Pressure -Offloading No -Treatment Response Procedure Tolerated Well -Debridement - Subq, 1st 20sq cm No #13 LEFT MEDIAL PLANTAR -Time 13:30 -Correct Patient Yes -Correct Side, Site, Position Yes -Correct Procedure Yes -Procedure Performed Yes -Type of Procedure Debridement -Clinical Debridement Subcutaneous -Tissue Removed Epidermis, Subcutaneous -Post Debridement (cm) - Length 1.3 -Post Debridement (cm) - Width 1.3 -Post Debridement (cm) - Depth 0.4 -Total Square (Post) (cm) .4 -Area of Debridement (cm) - Length 1.3 -Area of Debridement (cm) - Width 1.3 -Total Square (Area) (cm) 1.69 -Tunneling No -Undermining/Tunneling No -Circular Undermining No -Wound/Ulcer Outcome Healed- Surgical Closure -Ulcer Cleansing -Foul Odor after Cleansing No -Bioengineered Tissue No -Type of Bioengineered Tissue -Expiration Date -Product Lot Number -Percent Used -Lot number of Saline Used -Bleeding Controlled with Pressure -Offloading Yes -Type of Offloading Total Contact Cast (TCC) - Left ($) -Treatment Response Procedure Tolerated Well -Debridement - Subq, 1st 20sq cm No -Apply Skin Sub - 1st 25 sq cm - Feet -Epifix (per sq cm) Pain Scale: 0-10 Numeric Is Patient Pain Free? Yes WC - Nurse 3 - General Ulcer D/C NN Start: 02/21/21 13:30 Freq: Status: Active Protocol: Activity Type Activity Date Activity User E-Sign Co-Sign Detail Recorded Client Recorded Date Recorded By Document 02/21/21 14:49 RB Desktop 02/21/21 14:51 RB Document 02/28/21 16:03 RB [id number] 02/28/21 16:04 RB Document 03/07/21 14:13 RB [id number] 03/07/21 14:15 RB 02/21/21 02/28/21 03/07/21 14:49 16:03 14:13 Wound Care Nurse 3 18-right medial ankle -Ulcer Cleansing Wound Cleanser -Primary Dressing Applied NonAdherent Contact Layer -Other Dressing HYDROGEL hydsrogel -Primary Dressing Covered/Secured with Dry Gauze,Dry Dry Gauze,Dry Gauze & Roll Gauze & Roll Gauze,Secured Gauze,Secured with Tape with Tape #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 -Ulcer Cleansing Wound Cleanser -Primary Dressing Applied NonAdherent Contact Layer -Other Dressing HYDROGEL hydrogel hydrogel -Primary Dressing Covered/Secured with Dry Gauze,Dry Dry Gauze,Dry Dry Gauze,Dry Gauze & Roll Gauze & Roll Gauze & Roll Gauze,Secured Gauze,Secured Gauze,Secured with Tape with Tape with Tape #13 LEFT MEDIAL PLANTAR -Other Dressing PRIMARY TCC primary layer TCC primary of TCC layer Right -Tubular Bandage Single Layer Single Layer Single Layer -Size of Tubigrip Used Size E Size F Size F -Size E ($) 1 -Size F ($) 1 1 Treatment Response Procedure Tolerated Well Pain Scale: 0-10 Numeric Is Patient Pain Free? Yes Yes Yes WC - Visit Discharge Discharge Condition Stable Stable Stable Ambulatory Status Ambulatory Ambulatory Ambulatory Transportation Private Auto Private Auto Private Auto Medication Reconcilliation completed & No No No provided to patient/care provider Clinical Summary of Care Provided Yes Yes Yes Wound debrided: plantar left foot Wound Grade/Stage: 1 Type of Debridement: Excisional debridement Anesthesia Used: 4% Lidocaine Solution Depth: in the subcutaneous layer Percentage of wound debrided: 100 Instrument Used: #15 blade Tissue Removed: fibrous, devitalized subcutaneous, biofilm, slough Severity: Fat Layer Exposed Amount of bleeding with debridement: Mild Bleeding Controlled with: Pressure Patient tolerated procedure: Patient tolerated procedure well Assessment/Plan Assessment/Plan (1) 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: CODE(S): L97.912 - Non-pressure chronic ulcer of unspecified part of right lower leg with fat layer exposed (2) Non-pressure chronic ulcer of other part of left foot with fat layer exposed: CODE(S): L97.522 - Non-pressure chronic ulcer of other part of left foot with fat layer exposed (3) Type 2 diabetes mellitus with diabetic polyneuropathy: CODE(S): E11.42 - Type 2 diabetes mellitus with diabetic polyneuropathy QUALIFIERS: Diabetes mellitus intermediate teacher insulin use: without snf use Qualified Code(s): E11.42 - Type 2 diabetes mellitus with diabetic polyneuropathy (4) Difficulty walking: CODE(S): R26.2 - Difficulty in walking, not elsewhere classified (5) Debility: CODE(S): R53.81 - Other malaise (6) Localized edema: CODE(S): R60.0 - Localized edema (7) Obesity: CODE(S): E66.9 - Obesity, unspecified QUALIFIERS: Obesity type: due to excess calories Obesity classification: adult class 3 (BMI >= 40) Serious obesity comorbidity presence: with serious comorbidity Body mass index: BMI 45.0-49.9 Qualified Code(s): E66.01 - Morbid (severe) obesity due to excess calories; Z68.42 - Body mass index [BMI] 45.0-49.9, adult (8) Delayed wound healing: CODE(S): T14.8XXD - Other injury of unspecified body region, subsequent encounter (9) Ulcer of right foot with fat layer exposed: CODE(S): L97.512 - Non-pressure chronic ulcer of other part of right foot with fat layer exposed PLAN: Procedure- Location: right leg cluster and right second toe foot grade 1 Excisional debridement performed Anesthesia: 5% lidocaine plain Debridement layer: subcutaneous Amount of debridement: 10% leg cluster , 100% medial ankle location Instrumentation used: 15 blade Tissue debrided: fibrous, devitalized subcutaneous, biofilm, slough Exposed tissue: fat layer Bleeding: mild Hemostasis controlled: pressure The patient tolerated the procedure well I reviewed and discussed his case. Subcutaneous excisional debridement was performed as noted in the clinical panel to the left foot and the right leg/medial ankle and right second toe ulcer. Edema noted and has been addressed. To elevate and reduce salt intake. To continue with Tubigrip compression garments. To change right leg / ankle dressings with adaptic and hydrogel He completed a course of advanced wound healing product, epi fix to the left foot and notable improvement is seen. Holley was applied to the left foot today. Verbal consent was obtained for application of left total contact cast. This was applied according to standard protocol in a rectus position and well-padded manner. He tolerated this well. He was advised to keep this clean, dry, and intact until follow-up next week. To call if the cast gets wet or problematic. To wash limbs with soap and water. To avoid soaking activities. I discussed the need for serious offloading for limb salvage purposes. He has tried various shoes and walking boots. He has struggled with the use of such as a walker of a knee roller and has impaired gait. An electric power wheelchair (extra width-heavy duty) is also an option and at this time I recommend this. The CPT code for this device is K0807. This is medically necessary due to his bilateral lower extremity non weightbearing status, he lives alone and does not have assistance, he is a fall risk, and prolonged delayed wound healing is limb and life threatening. Updated prescription was provided again at previous visit. He is now better communicating this plan with his insurance company and has also located a durable medical staff manager location to proceed forward with this service. The request has been reviewed by ravi and has been assigned a pending reference number #[id number]. We will continue to work with his insurance company to see if we get this approved. His noninvasive vascular studies were reviewed from 05-04-2020 which were normal and intervention was previously not recommended. Urine he had bilateral arterial duplex and was advised to follow-up 1 year for updated exam. I reviewed Dr. Bonilla's note from June 14, 2020. To continue to work on decreasing glucose levels. He has a history of hyperglycemia. His last A1c was 8.8% in October 2020. To continue follow-up with primary care physician. To continue to follow-up with nutritional services. To continue to follow-up as advised. He is currently making adjustments with his nutritional habits. He also follows up with rebar fabricator, Dr. Arteaga, who is working with him to reduce his hemoglobin A1c with medication and behavioral changes. Smoking cessation was discussed in detail and he was advised on the healing impairment associated with this. To continue with his smoking cessation pro gram. He denies current tobacco use. I also recommend discontinuation of nicotine products for this also contributes to small vessel contraction. He is currently undergoing advanced wound healing product application. If this fails the following options exist: Proceeding with a palliative wound care plan which he follows up every 2 to 4 weeks and the goal is to keep the ulcers noninfected and stable, below-knee amputation, revisional transmetatarsal amputation with rotational skin flap. Prognosis is guarded with ongoing glucose elevation and inability to comply with nonweightbearing standards. I answered all of his questions today. To return to clinic in 1 week or call sooner if questions, concerns, or progressive worsening. Note: [employer] speech recognition information systems consultant software was used to create portions of this document. Sound-alike and misspelled words, as well as other information systems consultant errors may be contained in the documentation. The medical decision making level is low. There is noted low risk of morbidity after considering this treatment plan and diagnostic data. The problems addressed require a low medical decision making level which includes two or more minor problems, a stable chronic illness, or an acute uncomplicated illness or injury.
[2021-03-21 13:08] VITALS: BP 132/72; PULSE 97; RESP 18; TEMP 36.9; BMI 48.5
--- NOTE | 2021-03-21 13:46 | PN.PCM_ITS ---
History of Present Illness Date of Service: 03/21/21 Chief Complaint: Diabetic left foot ulceration, [place] Grade 3 right leg ulcers Right second toe ulcer History of Wound: This 65-year-old male with multiple comorbidities was seen today for left foot ulcer that is very chronic. He was also seen for right leg and right second toe ulcers. He denies diarrhea, fever, chill, nausea, vomiting. He denies redness or odor. He denies calf pain. He has debility and difficulty walking. He is trying to get approved for an electric wheelchair because ambulation is limiting his ability to heal his foot ulcers by placing routine weight on these. He tolerated his total contact cast well last week. He relates he is less active this past week. His treatment plan is medically necessary for limb and life salvage. Progress of Wound: Improving right leg Healed right second toe Stable left foot Objective Data Objective Data Vital Signs: Vital Signs Temp Pulse Resp BP 98.5 F 97 18 132/72 H 03/21/21 13:08 03/21/21 13:08 03/21/21 13:08 03/21/21 13:08 Oxygen Delivery Method Room Air Weight: 147.418 kg Body Mass Index (BMI) 48.5 Physical Exam Const alert and oriented x3 General Appearance: cooperative HEENT normocephalic Extremity Extremity Narrative: Left transmetatarsal amputation Muscle wasting Compartments soft to palpate bilateral lower extremities No bogginess or fluctuance on palpation General Extremity: edema and no tenderness to palpation of joints or extremities; Negative for cyanosis Skin Skin Narrative: No purulence, erythema, streaking, odor, infection. The right leg ulcer sites have healthier moisture and granulation tissue development; reduced size noted. His left foot ulcer also has a granular base with centralized devitalized tissue. No necrosis, deep tissue exposure, odor or mace ration. His skin to the bilateral lower extremities is hairless and atrophic. full epithelialization to second toe General Skin Exam: Negative for erythema Neuro Neuro Narrative: Lack of normal epicritic sensation to light touch is consistent with neuropathic status bilateral lower extremities Psych cooperative and affect normal Debridement Note Debridement Note Post-Debridement Measurements and Additional Note: Post-Debridement Measurements/Treatment UZIEL - Nurse 1 - General Ulcer Assessment Start: 02/21/21 13:30 Freq: Status: Active Protocol: MARIA ESTHER Activity Type Activity Date Activity User E-Sign Co-Sign Detail Recorded Client Recorded Date Recorded By Document 02/21/21 13:30 PL [id number] 02/21/21 13:46 PL Document 02/28/21 14:14 DL [id number] 02/28/21 14:32 DL Document 03/07/21 13:30 DL [id number] 03/07/21 13:41 DL Document 03/14/21 13:07 BMF [id number] 03/14/21 13:20 BMF Document 03/21/21 13:08 RB [id number] 03/21/21 13:20 RB 02/21/21 02/28/21 03/07/21 13:30 14:14 13:30 WC - Today's Visit Information Type of service Follow-up Visit Follow-up Visit Follow-up Visit (Physician/DATA ANALYTICS DEVELOPER (Physician/DATA ANALYTICS DEVELOPER (Physician/DATA ANALYTICS DEVELOPER ) ) ) Arrival Mode Cane Ambulatory Ambulatory,Cane Transfer Assistance None None None Patient Identification Verified (Name & Yes Yes Yes ) Patient Requires Transmission-Based No No No Precautions Safety Precautions NA Finger Stick Blood Sugar(mg/dl) (if 185 186 indicated): Blood Sugar Stated by Stated by Patient Patient Height and Weight Body Mass Index (BMI) 48.5 48.5 48.5 BMI Classification Obese Obese Obese Vital Signs Temperature (97.8 F-99.1 F) 97.2 F L 98.4 F 98.7 F Temperature Source Temporal Temporal Temporal Pulse Rate (60-100) 98 91 99 Pulse Location Monitor Monitor Respiratory Rate (12-18) 18 22 H 22 H Respiratory rate source Observation Observation Oxygen Delivery Method Blood Pressure (90/60-120/80) 157/71 H 150/70 H 144/79 H Blood Pressure Mean (mm Hg) 99 96 100 Source Monitor Monitor Position Blood Pressure Location History Since Last Visit- (Skip if this is Patient's initial visit) Have you changed medications since your No No No last visit? Any new allergies or adverse reactions No No No Had a fall/change in ADL's that may No No No increase risk of falls Signs or symptoms of abuse and/or No No No neglect since last visit Have you been in the hospital since your No No No last visit? Has dressing in place as prescribed Yes Yes Yes Has compression in place as prescribed Yes N/A Yes Has offloadiing in place as prescribed Yes Yes Experienced any changes in pain level or No No No management Left Footwear Total Contact Total Contact Cast Cast Right Footwear Regular Shoe Pain Scale: 0-10 Numeric Is Patient Pain Free? Yes Yes Yes 03/14/21 03/21/21 13:07 13:08 WC - Today's Visit Information Type of service Follow-up Visit Follow-up Visit (Physician/DATA ANALYTICS DEVELOPER (Physician/DATA ANALYTICS DEVELOPER ) ) Arrival Mode Ambulatory,Cane Ambulatory Transfer Assistance None None Patient Identification Verified (Name & Yes Yes ) Patient Requires Transmission-Based No No Precautions Safety Precautions Finger Stick Blood Sugar(mg/dl) (if 228 indicated): Blood Sugar Stated by Patient Height and Weight Body Mass Index (BMI) 48.5 48.5 BMI Classification Obese Obese Vital Signs Temperature (97.8 F-99.1 F) 98 F 98.5 F Temperature Source Temporal Temporal Pulse Rate (60-100) 97 Pulse Location Monitor Monitor Respiratory Rate (12-18) 18 18 Respiratory rate source Observation Observation Oxygen Delivery Method Room Air Blood Pressure (90/60-120/80) 132/72 H Blood Pressure Mean (mm Hg) 92 Source Monitor Monitor Position Sitting Semi-Fowlers Blood Pressure Location Left Arm Left Arm History Since Last Visit- (Skip if this is Patient's initial visit) Have you changed medications since your No No last visit? Any new allergies or adverse reactions No No Had a fall/change in ADL's that may No No increase risk of falls Signs or symptoms of abuse and/or No No neglect since last visit Have you been in the hospital since your No No last visit? Has dressing in place as prescribed No Yes Has compression in place as prescribed No No Has offloadiing in place as prescribed Yes Yes Experienced any changes in pain level or No No management Left Footwear Total Contact Total Contact Cast Cast Right Footwear Regular Shoe Regular Shoe Pain Scale: 0-10 Numeric Is Patient Pain Free? Yes Yes - Nurse 1 - General Ulcer Measurement Start: 02/21/21 13:30 Freq: Status: Active Protocol: Activity Type Activity Date Activity User E-Sign Co-Sign Detail Recorded Client Recorded Date Recorded By Document 02/21/21 13:30 PL [id number] 02/21/21 13:46 PL Document 02/28/21 14:14 DL [id number] 02/28/21 14:32 DL Document 03/07/21 13:30 DL [id number] 03/07/21 13:41 DL Document 03/14/21 13:07 BM [id number] 03/14/21 13:20 BMF Document 03/21/21 13:08 RB [id number] 03/21/21 13:20 RB 02/21/21 02/28/21 03/07/21 13:30 14:14 13:30 Wound Center Nurse 1 #19 Right 2nd Toe -Combined with other wound -Current Size (cm) - Length -Current Size (cm) - Width -Current Size (cm) - Depth -Total Square Cm -Tunneling -Undermining/Tunneling -Circular Undermining -Exudate Amt -Exudate Type -Wound Margin -Granulation Amt -Granulation Quality -Slough/Fibrin -Necrosis Amt -Necrotic Tissue Type -Structure Exposed -Texture (Maria M-wound Skin Appearance) -Moisture (Maria M-wound Skin Appearance) -Color (Maria M-wound Skin Appearance) -Temperature (Maria M-wound Skin Appearance) -Tenderness on Palpation (Maria M-wound Skin Appearance) -Ulcer Cleansing -Foul Odor after Cleansing -Anesthetic Used 18-right medial ankle -Current Size (cm) - Length 0.5 0.3 0.1 -Current Size (cm) - Width 0.4 0.2 0.1 -Current Size (cm) - Depth 0.3 0.1 0.1 -Total Square Cm 0.20 0.06 0.01 -Photo Taken No No No -Epithelialization None Present -Tunneling No -Undermining/Tunneling No -Circular Undermining No -Exudate Amt Medium None Present None Present -Exudate Type Serosanguineous -Wound Margin Thickened & Thickened Thickened Rolled Under -Granulation Amt Small (1-33%) Small (1-33%) Small (1-33%) -Granulation Quality Fortescue Fortescue Fortescue -Slough/Fibrin Yes -Necrosis Amt Large (67-100%) Small (1-33%) Small (1-33%) -Necrotic Tissue Type Adherent Slough Adherent Slough Adherent Slough -Structure Exposed N/A N/A -Texture (Maria M-wound Skin Appearance) Callus Scarring Scarring -Moisture (Maria M-wound Skin Appearance) No Abnormality Dry/Scaly Dry/Scaly -Color (Maria M-wound Skin Appearance) No Abnormality Hemosiderin No Abnormality Staining -Temperature (Maria M-wound Skin No Abnormality No Abnormality No Abnormality Appearance) (Pt Warm) (Pt Warm) (Pt Warm) -Tenderness on Palpation (Maria M-wound No No Skin Appearance) -Ulcer Cleansing Soap and Water Wound Cleanser Wound Cleanser -Foul Odor after Cleansing Yes, Due to No Product Use -Anesthetic Used 5% Lidocaine 4% Lidocaine 4% Lidocaine Gel Solution 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 -Combined with other wound No -Current Size (cm) - Length 10 15 14.2 -Current Size (cm) - Width 1.0 7 1 -Current Size (cm) - Depth 0.1 0.1 0.1 -Total Square Cm 10.0 105 14.2 -Photo Taken No No No -Epithelialization Large 67-100% -Tunneling No -Undermining/Tunneling No -Circular Undermining No -Exudate Amt Medium Small Small -Exudate Type Serosanguineous Serosanguineous Serosanguineous -Wound Margin Distinct, Indistinct, Non Outline -Visible Attached -Granulation Amt Medium (34-66%) Large (67-100%) Medium (34-66%) -Granulation Quality Fortescue Red Fortescue -Slough/Fibrin Yes -Necrosis Amt Medium (34-66%) Small (1-33%) Medium (34-66%) -Necrotic Tissue Type Adherent Slough Adherent Slough Adherent Slough -Structure Exposed N/A N/A -Texture (Maria M-wound Skin Appearance) No Abnormality Scarring Scarring -Moisture (Maria M-wound Skin Appearance) No Abnormality Dry/Scaly Dry/Scaly -Color (Maria M-wound Skin Appearance) No Abnormality Hemosiderin Hemosiderin Staining Staining -Temperature (Maria M-wound Skin No Abnormality No Abnormality No Abnormality Appearance) (Pt Warm) (Pt Warm) (Pt Warm) -Tenderness on Palpation (Maria M-wound No No Skin Appearance) -Ulcer Cleansing Rinsed/ Wound Cleanser Wound Cleanser Irrigated with Saline -Foul Odor after Cleansing No No Yes, Due to Product Use -Anesthetic Used 5% Lidocaine 4% Lidocaine 4% Lidocaine Gel Solution Solution #13 LEFT MEDIAL PLANTAR -Combined with other wound -Current Size (cm) - Length 1.0 1.4 1.5 -Current Size (cm) - Width 1.0 1.6 1.5 -Current Size (cm) - Depth 0.4 0.4 0.6 -Total Square Cm 1.00 2.24 2.25 -Photo Taken No No No -Epithelialization None Present -Tunneling No -Undermining/Tunneling No -Undermining/Tunneling Starts (O'clock ) -Undermining/Tunneling Ends (O'clock) -Maximum Distance (cm) -Circular Undermining No -Exudate Amt Medium Small Medium -Exudate Type Serosanguineous -Wound Margin Thickened & Thickened Thickened Rolled Under -Granulation Amt Medium (34-66%) Large (67-100%) None Present (0 %) -Granulation Quality Fortescue -Slough/Fibrin Yes -Necrosis Amt Medium (34-66%) Large (67-100%) Large (67-100%) -Necrotic Tissue Type Adherent Slough Adherent Slough Adherent Slough -Structure Exposed N/A N/A -Texture (Maria M-wound Skin Appearance) Callus Scarring Callus,Scarring -Moisture (Maria M-wound Skin Appearance) Weeping Maceration Maceration -Color (Maria M-wound Skin Appearance) No Abnormality Hemosiderin Hemosiderin Staining Staining -Temperature (Maria M-wound Skin No Abnormality No Abnormality Appearance) (Pt Warm) (Pt Warm) -Tenderness on Palpation (Maria M-wound No No Skin Appearance) -Ulcer Cleansing Soap and Water Wound Cleanser Wound Cleanser -Foul Odor after Cleansing No No -Anesthetic Used 5% Lidocaine 4% Lidocaine 4% Lidocaine Gel Solution Solution Right Calf (cm) 43.5 42.5 Right Ankle (cm) 24.2 23.4 03/14/21 03/21/21 13:07 13:08 Wound Center Nurse 1 #19 Right 2nd Toe -Combined with other wound No No -Current Size (cm) - Length 0.5 0.3 -Current Size (cm) - Width 0.2 0.3 -Current Size (cm) - Depth 0.2 0.1 -Total Square Cm 0.10 0.09 -Tunneling No No -Undermining/Tunneling No No -Circular Undermining No No -Exudate Amt Medium Small -Exudate Type Serosanguineous Serosanguineous -Wound Margin Distinct, Flat & Intact Outline Attached -Granulation Amt Medium (34-66%) Medium (34-66%) -Granulation Quality Fortescue Fortescue,Red -Slough/Fibrin Yes Yes -Necrosis Amt Small (1-33%) Small (1-33%) -Necrotic Tissue Type Adherent Slough Adherent Slough -Structure Exposed N/A N/A -Texture (Maria M-wound Skin Appearance) Assessed Assessed -Moisture (Maria M-wound Skin Appearance) Assessed Assessed -Color (Maria M-wound Skin Appearance) Assessed Assessed -Temperature (Maria M-wound Skin No Abnormality No Abnormality Appearance) (Pt Warm) (Pt Warm) -Tenderness on Palpation (Maria M-wound No No Skin Appearance) -Ulcer Cleansing Wound Cleanser Wound Cleanser -Foul Odor after Cleansing No No -Anesthetic Used 4% Lidocaine 5% Lidocaine Solution Gel 18-right medial ankle -Current Size (cm) - Length -Current Size (cm) - Width -Current Size (cm) - Depth -Total Square Cm -Photo Taken -Epithelialization -Tunneling -Undermining/Tunneling -Circular Undermining -Exudate Amt -Exudate Type -Wound Margin -Granulation Amt -Granulation Quality -Slough/Fibrin -Necrosis Amt -Necrotic Tissue Type -Structure Exposed -Texture (Maria M-wound Skin Appearance) -Moisture (Maria M-wound Skin Appearance) -Color (Maria M-wound Skin Appearance) -Temperature (Maria M-wound Skin Appearance) -Tenderness on Palpation (Maria M-wound Skin Appearance) -Ulcer Cleansing -Foul Odor after Cleansing -Anesthetic Used #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 -Combined with other wound No No -Current Size (cm) - Length 14.3 13.5 -Current Size (cm) - Width 4.7 4.5 -Current Size (cm) - Depth 0.2 0.1 -Total Square Cm 67.21 60.75 -Photo Taken -Epithelialization -Tunneling No -Undermining/Tunneling No No -Circular Undermining No No -Exudate Amt Medium Medium -Exudate Type Serosanguineous Serosanguineous -Wound Margin Thickened Flat & Intact -Granulation Amt Medium (34-66%) Medium (34-66%) -Granulation Quality Fortescue Fortescue,Red -Slough/Fibrin Yes Yes -Necrosis Amt Small (1-33%) Small (1-33%) -Necrotic Tissue Type Adherent Slough Adherent Slough -Structure Exposed N/A None/Limited to Skin Breakdown -Texture (Maria M-wound Skin Appearance) Assessed Assessed, Excoriation -Moisture (Maria M-wound Skin Appearance) No Abnormality Assessed -Color (Maria M-wound Skin Appearance) Assessed Assessed -Temperature (Maria M-wound Skin No Abnormality No Abnormality Appearance) (Pt Warm) (Pt Warm) -Tenderness on Palpation (Maria M-wound No No Skin Appearance) -Ulcer Cleansing Wound Cleanser Wound Cleanser -Foul Odor after Cleansing No Yes, Due to Product Use -Anesthetic Used 4% Lidocaine 5% Lidocaine Solution Gel #13 LEFT MEDIAL PLANTAR -Combined with other wound No No -Current Size (cm) - Length 1.2 1.1 -Current Size (cm) - Width 1.2 1 -Current Size (cm) - Depth 0.4 0.6 -Total Square Cm 1.44 1.1 -Photo Taken No -Epithelialization -Tunneling No No -Undermining/Tunneling Yes Yes -Undermining/Tunneling Starts (O'clock 8 12 ) -Undermining/Tunneling Ends (O'clock) 2 12 -Maximum Distance (cm) 0.3 0.3 -Circular Undermining Yes -Exudate Amt Medium Large -Exudate Type Serosanguineous Serosanguineous -Wound Margin Thickened Thickened -Granulation Amt Medium (34-66%) Medium (34-66%) -Granulation Quality Fortescue Fortescue -Slough/Fibrin Yes Yes -Necrosis Amt Small (1-33%) Large (67-100%) -Necrotic Tissue Type Adherent Slough Adherent Slough -Structure Exposed N/A N/A -Texture (Maria M-wound Skin Appearance) Assessed,Callus Callus -Moisture (Maria M-wound Skin Appearance) Assessed Assessed -Color (Maria M-wound Skin Appearance) Assessed Assessed -Temperature (Maria M-wound Skin No Abnormality No Abnormality Appearance) (Pt Warm) (Pt Warm) -Tenderness on Palpation (Maria M-wound No No Skin Appearance) -Ulcer Cleansing Wound Cleanser Wound Cleanser -Foul Odor after Cleansing No No -Anesthetic Used 4% Lidocaine 5% Lidocaine Solution Gel Right Calf (cm) Right Ankle (cm) WC - Nurse 2 - General Ulcer CM Notes Start: 02/21/21 13:30 Freq: Status: Active Protocol: Activity Type Activity Date Activity User E-Sign Co-Sign Detail Recorded Client Recorded Date Recorded By Document 02/21/21 14:06 JF [id number] 02/21/21 14:17 JF Document 02/28/21 14:47 JF [id number] 02/28/21 15:26 JF Document 03/07/21 17:31 PL [id number] 03/07/21 17:37 PL Edit Result 03/07/21 17:31 PL (1) [id number] 03/07/21 17:39 PL Edit Result 03/07/21 17:31 PL (2) [id number] 03/09/21 07:32 PL Document 03/14/21 13:26 JF [id number] 03/14/21 13:38 JF Document 03/21/21 13:34 JF [id number] 03/21/21 13:43 JF (1) #19 Right 2nd Toe - Time => 13:58 - Correct Patient => Yes - Correct Side, Site, Position => Yes - Correct Procedure => Yes - Procedure Performed => Yes - Type of Procedure => Debridement - Clinical Debridement => Subcutaneous - Tissue Removed => Subcutaneous - Post Debridement (cm) - Length => 0.5 - Post Debridement (cm) - Width => 0.3 - Post Debridement (cm) - Depth => 0.1 - Total Square (Post) (cm) => 0.15 - Area of Debridement (cm) - Length => 0.5 - Area of Debridement (cm) - Width => 0.3 - Total Square (Area) (cm) => 0.15 - Tunneling => No - Undermining/Tunneling => No - Circular Undermining => No - Wound/Ulcer Outcome => Not Healed - Ulcer Cleansing => Rinsed/Irrigated => with Saline - Foul Odor after Cleansing => No - Bioengineered Tissue => No - Bleeding Controlled with => Pressure - Treatment Response => Procedure => Tolerated Well - Debridement - Subq, 1st 20sq cm => No (2) #13 LEFT MEDIAL PLANTAR - Type of Offloading => Total Contact Cast => (TCC) - Left ($) 02/21/21 02/28/21 03/07/21 14:06 14:47 17:31 Wound Center Nurse 2 #19 Right 2nd Toe -Time 13:58 -Correct Patient Yes -Correct Side, Site, Position Yes -Correct Procedure Yes -Procedure Performed Yes -Type of Procedure Debridement -Clinical Debridement Subcutaneous -Tissue Removed Subcutaneous -Post Debridement (cm) - Length 0.5 -Post Debridement (cm) - Width 0.3 -Post Debridement (cm) - Depth 0.1 -Total Square (Post) (cm) 0.15 -Area of Debridement (cm) - Length 0.5 -Area of Debridement (cm) - Width 0.3 -Total Square (Area) (cm) 0.15 -Tunneling No -Undermining/Tunneling No -Circular Undermining No -Wound/Ulcer Outcome Not Healed -Ulcer Cleansing Rinsed/ Irrigated with Saline -Foul Odor after Cleansing No -Bioengineered Tissue No -Bleeding Controlled with Pressure -Offloading -Treatment Response Procedure Tolerated Well -Debridement - Subq, 1st 20sq cm No 18-right medial ankle -Time 14:06 14:48 -Correct Patient Yes Yes -Correct Side, Site, Position Yes Yes -Correct Procedure Yes Yes -Procedure Performed Yes Yes -Type of Procedure Debridement Debridement -Clinical Debridement Subcutaneous Subcutaneous -Tissue Removed Subcutaneous Subcutaneous -Post Debridement (cm) - Length 0.5 0.3 -Post Debridement (cm) - Width 0.5 0.3 -Post Debridement (cm) - Depth 0.3 0.1 -Total Square (Post) (cm) 0.25 0.09 -Area of Debridement (cm) - Length 0.5 0.3 -Area of Debridement (cm) - Width 0.5 0.3 -Total Square (Area) (cm) 0.25 0.09 -Tunneling No No -Undermining/Tunneling No -Circular Undermining No No -Wound/Ulcer Outcome Not Healed Not Healed -Ulcer Cleansing Rinsed/ Rinsed/ Irrigated with Irrigated with Saline Saline -Foul Odor after Cleansing No No -Bioengineered Tissue No No -Bleeding Controlled with Pressure Pressure -Offloading No No -Treatment Response Procedure Procedure Tolerated Well Tolerated Well -Debridement - Subq, 1st 20sq cm Yes Yes #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 -Time 14:07 14:49 13:58 -Correct Patient Yes Yes Yes -Correct Side, Site, Position Yes Yes Yes -Correct Procedure Yes Yes Yes -Procedure Performed Yes Yes Yes -Type of Procedure Debridement Debridement Debridement -Clinical Debridement Subcutaneous Subcutaneous Subcutaneous -Tissue Removed Subcutaneous Subcutaneous Subcutaneous -Post Debridement (cm) - Length 1 1.5 14.2 -Post Debridement (cm) - Width 1 0.4 1.0 -Post Debridement (cm) - Depth 0.1 0.1 0.1 -Total Square (Post) (cm) 1 0.60 14.20 -Area of Debridement (cm) - Length 1 1.5 1.4 -Area of Debridement (cm) - Width 1 0.4 1.0 -Total Square (Area) (cm) 1 0.60 1.40 -Tunneling No No No -Undermining/Tunneling No No No -Circular Undermining No No No -Wound/Ulcer Outcome Not Healed Not Healed Not Healed -Ulcer Cleansing Rinsed/ Rinsed/ Rinsed/ Irrigated with Irrigated with Irrigated with Saline Saline Saline -Foul Odor after Cleansing No No No -Bioengineered Tissue No No No -Bleeding Controlled with Pressure Pressure -Offloading No No -Treatment Response Procedure Procedure Tolerated Well Tolerated Well -Debridement - Subq, 1st 20sq cm No No No #13 LEFT MEDIAL PLANTAR -Time 14:07 14:50 13:58 -Correct Patient Yes Yes Yes -Correct Side, Site, Position Yes Yes Yes -Correct Procedure Yes Yes Yes -Procedure Performed Yes Yes Yes -Type of Procedure Debridement Debridement Debridement -Clinical Debridement Subcutaneous Subcutaneous Subcutaneous -Tissue Removed Dermis Subcutaneous Subcutaneous -Post Debridement (cm) - Length 1.7 1.5 1.5 -Post Debridement (cm) - Width 1.8 1.6 1.5 -Post Debridement (cm) - Depth 0.3 0.4 0.6 -Total Square (Post) (cm) 3.06 2.40 2.25 -Area of Debridement (cm) - Length 1.7 1.5 1.5 -Area of Debridement (cm) - Width 1.8 1.6 1.5 -Total Square (Area) (cm) 3.06 2.40 2.25 -Tunneling No No No -Undermining/Tunneling No No No -Circular Undermining No No No -Wound/Ulcer Outcome Not Healed Not Healed Not Healed -Ulcer Cleansing Rinsed/ Rinsed/ Rinsed/ Irrigated with Irrigated with Irrigated with Saline Saline Saline -Foul Odor after Cleansing No No No -Bioengineered Tissue Yes Yes Yes -Type of Bioengineered Tissue Epifix Epifix Epifix -Expiration Date 10/23/25 11/20/25 11/20/25 -Product Lot Number [id number] -Percent Used 100 100 100 -Lot number of Saline Used [id number] -Bleeding Controlled with Pressure Pressure Pressure -Offloading Yes Yes -Type of Offloading Total Contact Total Contact Total Contact Cast (TCC) - Cast (TCC) - Cast (TCC) - Left ($) Left ($) Left ($) -Treatment Response Procedure Procedure Not Procedure Tolerated Well Tolerated Well Tolerated Well -Debridement - Subq, 1st 20sq cm No No No -Apply Skin Sub - 1st 25 sq cm - Feet 1 1 1 -Epifix (per sq cm) 4 4 4 Pain Scale: 0-10 Numeric Is Patient Pain Free? Yes Yes Yes 03/14/21 03/21/21 13:26 13:34 Wound Center Nurse 2 #19 Right 2nd Toe -Time 13:29 13:35 -Correct Patient Yes No -Correct Side, Site, Position Yes No -Correct Procedure Yes No -Procedure Performed Yes No -Type of Procedure Debridement -Clinical Debridement Subcutaneous -Tissue Removed Subcutaneous -Post Debridement (cm) - Length 0.6 0 -Post Debridement (cm) - Width 0.2 0 -Post Debridement (cm) - Depth 0.2 0 -Total Square (Post) (cm) 0.12 0 -Area of Debridement (cm) - Length 0.6 0 -Area of Debridement (cm) - Width 0.2 0 -Total Square (Area) (cm) 0.12 0 -Tunneling No -Undermining/Tunneling No -Circular Undermining No -Wound/Ulcer Outcome Not Healed Healed- Epithelialized -Ulcer Cleansing Rinsed/ Irrigated with Saline -Foul Odor after Cleansing No -Bioengineered Tissue No -Bleeding Controlled with Pressure -Offloading No -Treatment Response Procedure Tolerated Well -Debridement - Subq, 1st 20sq cm Yes 18-right medial ankle -Time -Correct Patient -Correct Side, Site, Position -Correct Procedure -Procedure Performed -Type of Procedure -Clinical Debridement -Tissue Removed -Post Debridement (cm) - Length -Post Debridement (cm) - Width -Post Debridement (cm) - Depth -Total Square (Post) (cm) -Area of Debridement (cm) - Length -Area of Debridement (cm) - Width -Total Square (Area) (cm) -Tunneling -Undermining/Tunneling -Circular Undermining -Wound/Ulcer Outcome -Ulcer Cleansing -Foul Odor after Cleansing -Bioengineered Tissue -Bleeding Controlled with -Offloading -Treatment Response -Debridement - Subq, 1st 20sq cm #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 -Time 13:30 13:36 -Correct Patient Yes Yes -Correct Side, Site, Position Yes Yes -Correct Procedure Yes Yes -Procedure Performed Yes Yes -Type of Procedure Debridement Debridement -Clinical Debridement Subcutaneous Subcutaneous -Tissue Removed Subcutaneous Dermis -Post Debridement (cm) - Length 3.5 1.6 -Post Debridement (cm) - Width 2 1.2 -Post Debridement (cm) - Depth 0.1 0.1 -Total Square (Post) (cm) 7.0 1.92 -Area of Debridement (cm) - Length 3.5 1.6 -Area of Debridement (cm) - Width 2 1.2 -Total Square (Area) (cm) 7.0 1.92 -Tunneling No No -Undermining/Tunneling No No -Circular Undermining No No -Wound/Ulcer Outcome Not Healed Not Healed -Ulcer Cleansing Rinsed/ Irrigated with Saline -Foul Odor after Cleansing No No -Bioengineered Tissue No No -Bleeding Controlled with Pressure Pressure -Offloading No No -Treatment Response Procedure Procedure Tolerated Well Tolerated Well -Debridement - Subq, 1st 20sq cm No Yes #13 LEFT MEDIAL PLANTAR -Time 13:30 13:36 -Correct Patient Yes Yes -Correct Side, Site, Position Yes Yes -Correct Procedure Yes Yes -Procedure Performed Yes Yes -Type of Procedure Debridement Debridement -Clinical Debridement Subcutaneous Subcutaneous -Tissue Removed Epidermis, Subcutaneous Subcutaneous -Post Debridement (cm) - Length 1.3 1.8 -Post Debridement (cm) - Width 1.3 1.2 -Post Debridement (cm) - Depth 0.4 0.4 -Total Square (Post) (cm) .4 2.16 -Area of Debridement (cm) - Length 1.3 1.8 -Area of Debridement (cm) - Width 1.3 0.2 -Total Square (Area) (cm) 1.69 0.36 -Tunneling No No -Undermining/Tunneling No No -Circular Undermining No -Wound/Ulcer Outcome Healed- Not Healed Surgical Closure -Ulcer Cleansing Rinsed/ Irrigated with Saline -Foul Odor after Cleansing No No -Bioengineered Tissue No No -Type of Bioengineered Tissue -Expiration Date -Product Lot Number -Percent Used -Lot number of Saline Used -Bleeding Controlled with Pressure Pressure -Offloading Yes Yes -Type of Offloading Total Contact Camwalker Cast (TCC) - Left ($) -Treatment Response Procedure Procedure Tolerated Well Tolerated Well -Debridement - Subq, 1st 20sq cm No No -Apply Skin Sub - 1st 25 sq cm - Feet -Epifix (per sq cm) Pain Scale: 0-10 Numeric Is Patient Pain Free? Yes Yes WC - Nurse 3 - General Ulcer D/C NN Start: 02/21/21 13:30 Freq: Status: Active Protocol: Activity Type Activity Date Activity User E-Sign Co-Sign Detail Recorded Client Recorded Date Recorded By Document 02/21/21 14:49 RB Desktop 02/21/21 14:51 RB Document 02/28/21 16:03 RB [id number] 02/28/21 16:04 RB Document 03/07/21 14:13 RB [id number] 03/07/21 14:15 RB Document 03/14/21 13:48 BMF [id number] 03/14/21 13:51 BMF 02/21/21 02/28/21 03/07/21 14:49 16:03 14:13 Wound Care Nurse 3 #19 Right 2nd Toe -Ulcer Cleansing -Foul Odor after Cleansing -Primary Dressing Applied -Other Dressing -Primary Dressing Covered/Secured with -Other Covering 18-right medial ankle -Ulcer Cleansing Wound Cleanser -Primary Dressing Applied NonAdherent Contact Layer -Other Dressing HYDROGEL hydsrogel -Primary Dressing Covered/Secured with Dry Gauze,Dry Dry Gauze,Dry Gauze & Roll Gauze & Roll Gauze,Secured Gauze,Secured with Tape with Tape #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 -Ulcer Cleansing Wound Cleanser -Foul Odor after Cleansing -Primary Dressing Applied NonAdherent Contact Layer -Other Dressing HYDROGEL hydrogel hydrogel -Primary Dressing Covered/Secured with Dry Gauze,Dry Dry Gauze,Dry Dry Gauze,Dry Gauze & Roll Gauze & Roll Gauze & Roll Gauze,Secured Gauze,Secured Gauze,Secured with Tape with Tape with Tape -Other Covering #13 LEFT MEDIAL PLANTAR -Ulcer Cleansing -Foul Odor after Cleansing -Primary Dressing Applied -Other Dressing PRIMARY TCC primary layer TCC primary of TCC layer -Promogran Holley Matter Right -Tubular Bandage Single Layer Single Layer Single Layer -Size of Tubigrip Used Size E Size F Size F -Size E ($) 1 -Size F ($) 1 1 Treatment Response Procedure Tolerated Well Pain Scale: 0-10 Numeric Is Patient Pain Free? Yes Yes Yes WC - Visit Discharge Discharge Condition Stable Stable Stable Ambulatory Status Ambulatory Ambulatory Ambulatory Transportation Private Auto Private Auto Private Auto Medication Reconcilliation completed & No No No provided to patient/care provider Clinical Summary of Care Provided Yes Yes Yes Facility Type 03/14/21 13:48 Wound Care Nurse 3 #19 Right 2nd Toe -Ulcer Cleansing Rinsed/ Irrigated with Saline -Foul Odor after Cleansing No -Primary Dressing Applied NonAdherent Contact Layer, Other -Other Dressing HYDROGEL -Primary Dressing Covered/Secured with Dry Gauze, Secured with Tape -Other Covering DRSG PER RB RN 18-right medial ankle -Ulcer Cleansing -Primary Dressing Applied -Other Dressing -Primary Dressing Covered/Secured with #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 -Ulcer Cleansing Rinsed/ Irrigated with Saline -Foul Odor after Cleansing No -Primary Dressing Applied NonAdherent Contact Layer, Other -Other Dressing HYDROGEL -Primary Dressing Covered/Secured with -Other Covering DRSG PER RB RN #13 LEFT MEDIAL PLANTAR -Ulcer Cleansing Rinsed/ Irrigated with Saline -Foul Odor after Cleansing No -Primary Dressing Applied Promogran Holley Matter, Other -Other Dressing TCC UNDERCAST PER RB RN -Promogran Holley Matter 1 Right -Tubular Bandage Single Layer -Size of Tubigrip Used Size F -Size E ($) -Size F ($) 1 Treatment Response Procedure Tolerated Well Pain Scale: 0-10 Numeric Is Patient Pain Free? Yes WC - Visit Discharge Discharge Condition Stable Ambulatory Status Ambulatory,Cane Transportation Private Auto Medication Reconcilliation completed & provided to patient/care provider Clinical Summary of Care Provided Facility Type Home Health Wound debrided: plantar left foot Wound Grade/Stage: 1 Type of Debridement: Excisional debridement Anesthesia Used: 4% Lidocaine Solution Depth: in the subcutaneous layer Percentage of wound debrided: 100 Instrument Used: #15 blade Tissue Removed: fibrous, devitalized subcutaneous, biofilm, slough Severity: Fat Layer Exposed Amount of bleeding with debridement: Mild Bleeding Controlled with: Pressure Patient tolerated procedure: Patient tolerated procedure well Assessment/Plan Assessment/Plan (1) 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: CODE(S): L97.912 - Non-pressure chronic ulcer of unspecified part of right lower leg with fat layer exposed (2) Non-pressure chronic ulcer of other part of left foot with fat layer exposed: CODE(S): L97.522 - Non-pressure chronic ulcer of other part of left foot with fat layer exposed (3) Type 2 diabetes mellitus with diabetic polyneuropathy: CODE(S): E11.42 - Type 2 diabetes mellitus with diabetic polyneuropathy QUALIFIERS: Diabetes mellitus middle or intermediate school principal insulin use: without middle or intermediate school principal use Qualified Code(s): E11.42 - Type 2 diabetes mellitus with diabetic polyneuropathy (4) Difficulty walking: CODE(S): R26.2 - Difficulty in walking, not elsewhere classified (5) Debility: CODE(S): R53.81 - Other malaise (6) Localized edema: CODE(S): R60.0 - Localized edema (7) Obesity: CODE(S): E66.9 - Obesity, unspecified QUALIFIERS: Obesity type: due to excess calories Obesity classification: adult class 3 (BMI >= 40) Serious obesity comorbidity presence: with serious comorbidity Body mass index: BMI 45.0-49.9 Qualified Code(s): E66.01 - Morbid (severe) obesity due to excess calories; Z68.42 - Body mass index [BMI] 45.0-49.9, adult (8) Delayed wound healing: CODE(S): T14.8XXD - Other injury of unspecified body region, subsequent encounter PLAN: Procedure- Location: right leg grade 1 Excisional debridement performed Anesthesia: 5% lidocaine plain Debridement layer: subcutaneous Amount of debridement: 10% leg cluster , 100% medial ankle location Instrumentation used: 15 blade Tissue debrided: fibrous, devitalized subcutaneous, biofilm, slough Exposed tissue: fat layer Bleeding: mild Hemostasis controlled: pressure The patient tolerated the procedure well I reviewed and discussed his case. Subcutaneous excisional debridement was performed as noted in the clinical panel to the left foot and the right leg. Toe ulcer is healed. Edema noted and has been addressed. To elevate and reduce salt intake. To continue with Tubigrip compression garments. To change right leg with adaptic and hydrogel He completed a course of advanced wound healing product, epi fix to the left foot and notable improvement is seen. There are some devitalized tissue and I do not recommend application of cast. I would like him to wash this daily with soap and water the left foot. Change dressing daily with Dakin wet-to-dry. He is reassured no local signs of infection are noted however these are precautions to prevent further diogenes lization or bacterial colonization. He has a surgical offloading shoe at home. I did provide him with a prescription to get an offloading cam walker boot for his edema, wound offloading, and walking difficulty. [facility] I discussed the need for serious offloading for limb salvage purposes. He has tried various shoes and walking boots. He has struggled with the use of such as a walker of a knee roller and has impaired gait. An electric power wheelchair (extra width-heavy duty) is also an option and at this time I recommend this. The CPT code for this device is K0807. This is medically necessary due to his bilateral lower extremity non weightbearing status, he lives alone and does not have assistance, he is a fall risk, and prolonged delayed wound healing is limb and life threatening. Updated prescription was provided again at previous visit. He is now better communicating this plan with his insurance company and has also located a durable adjunct faculty for medical terminology location to proceed forward with this service. The request has been reviewed by ravi and has been assigned a pending reference number #[id number]. We will continue to work with his insurance company to see if we get this approved. His noninvasive vascular studies were reviewed from 05-04-2020 which were normal and intervention was previously not recommended. Urine he had bilateral arterial duplex and was advised to follow-up 1 year for updated exam. I reviewed Dr. Bonilla's note from June 14, 2020. To continue to work on decreasing glucose levels. He has a history of hyperglycemia. His last A1c was 8.8% in October 2020. To continue follow-up with primary care physician. To continue to follow-up with nutritional services. To continue to follow-up as advised. He is currently making adjustments with his nutritional habits. He also follows up with humane agent, Dr. Arteaga, who is working with him to reduce his hemoglobin A1c with medication and behavioral changes. Smoking cessation was discussed in detail and he was advised on the healing impairment associated with this. To continue with his smoking cessation program. He denies current tobacco use. I also recommend discontinuation of nicotine products for this also contributes to small vessel contraction. The following options exist: Proceeding with a palliative wound care plan which he follows up every 2 to 4 weeks and the goal is to keep the ulcers noninfected and stable, below-knee amputation, revisional transmetatarsal amputation with rotational skin flap. Prognosis is guarded with ongoing glucose elevation and inability to comply with nonweightbearing standards. I answered all of his questions today. To return to clinic in 1 week or call sooner if questions, concerns, or progressive worsening. Note: [employer] speech recognition drivematic machine operator software was used to create portions of this document. Sound-alike and misspelled words, as well as other drivematic machine operator errors may be contained in the documentation.
== END 2021-03-21 23:59 ==
LOC: WC 13:00
PROVIDERS: PCP Family Medicine Geriatric Medicine; Referring Provider Podiatrist; Visit Provider Podiatrist
DX: E11.621 Type 2 diabetes mellitus with foot ulcer (principal); L97.912 Non-pressure chronic ulcer of unspecified part of right lower leg with fat layer exposed; L97.522 Non-pressure chronic ulcer of other part of left foot with fat layer exposed; E11.42 Type 2 diabetes mellitus with diabetic polyneuropathy; R26.2 Difficulty in walking, not elsewhere classified; R60.0 Localized edema; R53.81 Other malaise; Z79.4 Long term (current) use of insulin; E66.01 Morbid (severe) obesity due to excess calories; T14.8XXD Other injury of unspecified body region, subsequent encounter; Z68.42 Body mass index [BMI] 45.0-49.9, adult
CPT/HCPCS: 11042; 15275; 29445; Q4186

== ENCOUNTER 2021-04-11 14:30 | Outpatient (RCR) | payer MEDICARE, MEDICAID, SELFPAY ==
[2021-03-22 00:18] VITALS: BP 132/72; PULSE 97; RESP 18; TEMP 36.9
[2021-03-28 13:50] VITALS: BP 132/84; PULSE 103; RESP 18; TEMP 36.9; BMI 48.5
--- NOTE | 2021-03-28 14:47 | PN.PCM_ITS ---
History of Present Illness Date of Service: 03/28/21 Chief Complaint: Diabetic left foot ulceration, [place] Grade 3 right leg ulcer History of Wound: This 66-year-old male with multiple comorbidities was seen today for left foot ulcer that is very chronic. He was also seen for right leg ulcer. He denies diarrhea, fever, chill, nausea, vomiting. He denies redness or odor. He denies calf pain. He has debility and difficulty walking. He is trying to get approved for an electric wheelchair because ambulation is limiting his ability to heal his foot ulcers by placing routine weight on these. He was fitted for an updated cam walker boot with offloading liner today for the left lower extremity contact cast well last week. His treatment plan is medically necessary for limb and life salvage. Objective Data Objective Data Vital Signs: Vital Signs Temp Pulse Resp BP 98.5 F 103 H 18 132/84 H 03/28/21 13:50 03/28/21 13:50 03/28/21 13:50 03/28/21 13:50 Weight: 147.418 kg Body Mass Index (BMI) 48.5 Physical Exam Const alert and oriented x3 General Appearance: cooperative HEENT normocephalic Extremity Extremity Narrative: No calf tenderness Diminished pulses Left transmetatarsal amputation Muscle wasting noted General Extremity: edema and no tenderness to palpation of joints or extremities; Negative for cyanosis Skin Skin Narrative: no purulence, no streaking, no odor, no infection. Bilateral lower extremity skin is atrophic and hairless. Right leg ulcer has healthy granular base with peripheral epithelialization the left plantar foot ulcer has improvement in healthy granular base tissue with reduction of devitalized central location. There is moderate to severe peripheral callus noted today. No new ulcers bilateral General Skin Exam: Negative for erythema Neuro Neuro Narrative: lack of normal epicritic sensation via light touch is consisten t with neuropathy status Psych cooperative and affect normal Debridement Note Debridement Note Post-Debridement Measurements and Additional Note: Post-Debridement Measurements/Treatment - Nurse 1 - General Ulcer Assessment Start: 03/28/21 13:50 Freq: Status: Active Protocol: [email or web address] Activity Type Activity Date Activity User E-Sign Co-Sign Detail Recorded Client Recorded Date Recorded By Document 03/28/21 13:50 RB [id number] 03/28/21 13:59 RB 03/28/21 13:50 - Today's Visit Information Type of service Follow-up Visit (Physician/PASTE UP ARTIST ) Arrival Mode Ambulatory,Cane Transfer Assistance None Patient Identification Verified (Name & Yes ) Patient Requires Transmission-Based No Precautions Height and Weight Body Mass Index (BMI) 48.5 BMI Classification Obese Vital Signs Temperature (97.8 F-99.1 F) 98.5 F Temperature Source Temporal Pulse Rate (60-100) 103 H Pulse Location Monitor Respiratory Rate (12-18) 18 Respiratory rate source Observation Blood Pressure (90/60-120/80) 132/84 H Blood Pressure Mean (mm Hg) 100 Source Monitor Position Semi-Fowlers Blood Pressure Location Left Arm History Since Last Visit- (Skip if this is Patient's initial visit) Have you changed medications since your No last visit? Any new allergies or adverse reactions No Had a fall/change in ADL's that may No increase risk of falls Signs or symptoms of abuse and/or No neglect since last visit Have you been in the hospital since your No last visit? Has dressing in place as prescribed Yes Has compression in place as prescribed No Has offloadiing in place as prescribed Yes Experienced any changes in pain level or No management WC - Nurse 1 - General Ulcer Measurement Start: 03/28/21 13:50 Freq: Status: Active Protocol: Activity Type Activity Date Activity User E-Sign Co-Sign Detail Recorded Client Recorded Date Recorded By Document 03/28/21 13:50 RB [id number] 03/28/21 13:59 RB 03/28/21 13:50 Wound Center Nurse 1 #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 -Combined with other wound No -Current Size (cm) - Length 12 -Current Size (cm) - Width 6 -Current Size (cm) - Depth 0.1 -Total Square Cm 72 -Tunneling No -Undermining/Tunneling No -Circular Undermining No -Exudate Amt Large -Exudate Type Serosanguineous -Wound Margin Distinct, Outline Attached -Granulation Amt Medium (34-66%) -Granulation Quality Fontanet -Slough/Fibrin Yes -Necrosis Amt Small (1-33%) -Necrotic Tissue Type Adherent Slough -Structure Exposed N/A -Texture (Maria M-wound Skin Appearance) Assessed -Moisture (Maria M-wound Skin Appearance) Assessed -Color (Maria M-wound Skin Appearance) Assessed -Temperature (Maria M-wound Skin No Abnormality Appearance) (Pt Warm) -Tenderness on Palpation (Maria M-wound No Skin Appearance) -Ulcer Cleansing Wound Cleanser -Foul Odor after Cleansing No -Anesthetic Used 4% Lidocaine Solution #13 LEFT MEDIAL PLANTAR -Combined with other wound No -Current Size (cm) - Length 1.5 -Current Size (cm) - Width 1.5 -Current Size (cm) - Depth 0.5 -Total Square Cm 2.25 -Tunneling No -Undermining/Tunneling No -Circular Undermining No -Exudate Amt Large -Exudate Type Serosanguineous -Wound Margin Distinct, Outline Attached -Granulation Amt Medium (34-66%) -Granulation Quality Fontanet,Red -Slough/Fibrin Yes -Necrosis Amt Small (1-33%) -Necrotic Tissue Type Adherent Slough -Structure Exposed N/A -Texture (Maria M-wound Skin Appearance) Assessed, Friable -Moisture (Maria M-wound Skin Appearance) Assessed -Color (Maria M-wound Skin Appearance) Assessed -Temperature (Maria M-wound Skin No Abnormality Appearance) (Pt Warm) -Tenderness on Palpation (Maria M-wound No Skin Appearance) -Ulcer Cleansing Wound Cleanser -Foul Odor after Cleansing No -Anesthetic Used 4% Lidocaine Solution WC - Nurse 2 - General Ulcer CM Notes Start: 03/28/21 13:50 Freq: Status: Active Protocol: Activity Type Activity Date Activity User E-Sign Co-Sign Detail Recorded Client Recorded Date Recorded By Document 03/28/21 14:31 [email or web address] [id number] 03/28/21 14:38 CASSY 03/28/21 14:31 Wound Center Nurse 2 #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 -Time 14:32 -Correct Patient Yes -Correct Side, Site, Position Yes -Correct Procedure Yes -Procedure Performed Yes -Type of Procedure Debridement -Clinical Debridement Subcutaneous -Tissue Removed Subcutaneous -Post Debridement (cm) - Length 1.3 -Post Debridement (cm) - Width 0.6 -Post Debridement (cm) - Depth 0.2 -Total Square (Post) (cm) 0.78 -Area of Debridement (cm) - Length 1.3 -Area of Debridement (cm) - Width 0.6 -Total Square (Area) (cm) 0.78 -Tunneling No -Undermining/Tunneling No -Circular Undermining No -Wound/Ulcer Outcome Not Healed -Ulcer Cleansing Rinsed/ Irrigated with Saline -Foul Odor after Cleansing No -Bioengineered Tissue No -Bleeding Controlled with Pressure -Offloading No -Treatment Response Procedure Tolerated Well -Debridement - Subq, 1st 20sq cm Yes #13 LEFT MEDIAL PLANTAR -Time 14:33 -Correct Patient Yes -Correct Side, Site, Position Yes -Correct Procedure Yes -Procedure Performed Yes -Type of Procedure Debridement -Clinical Debridement Subcutaneous -Tissue Removed Subcutaneous -Post Debridement (cm) - Length 1.6 -Post Debridement (cm) - Width 1.6 -Post Debridement (cm) - Depth 0.4 -Total Square (Post) (cm) 2.56 -Area of Debridement (cm) - Length 1.6 -Area of Debridement (cm) - Width 1.6 -Total Square (Area) (cm) 2.56 -Tunneling No -Undermining/Tunneling No -Circular Undermining No -Wound/Ulcer Outcome Not Healed -Ulcer Cleansing Rinsed/ Irrigated with Saline -Foul Odor after Cleansing No -Bioengineered Tissue No -Bleeding Controlled with Pressure -Offloading Yes -Type of Offloading Camwalker -Treatment Response Procedure Tolerated Well -Debridement - Subq, 1st 20sq cm No Pain Scale: 0-10 Numeric Is Patient Pain Free? 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: CODE(S): L97.912 - Non-pressure chronic ulcer of unspecified part of right lower leg with fat layer exposed (2) Non-pressure chronic ulcer of other part of left foot with fat layer exposed: CODE(S): L97.522 - Non-pressure chronic ulcer of other part of left foot with fat layer exposed (3) Type 2 diabetes mellitus with diabetic polyneuropathy: CODE(S): E11.42 - Type 2 diabetes mellitus with diabetic polyneuropathy QUALIFIERS: Diabetes mellitus exterminator helper termite insulin use: without halfway use Qualified Code(s): E11.42 - Type 2 diabetes mellitus with diabetic polyneuropathy (4) Debility: CODE(S): R53.81 - Other malaise (5) Localized edema: CODE(S): R60.0 - Localized edema PLAN: Procedure- Location: plantar medial left foot grade 1 Excisional debridement performed Anesthesia: 5% lidocaine plain Debridement layer: subcutaneous Amount of debridement: 100% Instrumentation used: 15 blade Tissue debrided: fibrous, devitalized subcutaneous, biofilm, slough Exposed tissue: fat layer Bleeding: mild Hemostasis controlled: pressure The patient tolerated the procedure well I reviewed and discussed his case. Subcutaneous excisional debridement was performed as noted in the clinical panel to the left foot and the right leg. Edema noted and has been addressed. To elevate and reduce salt intake. To continue with Tubigrip compression garments. To change right leg with adaptic and hydrogel daily. To change left foot ulcer daily with Aquacel Ag. He completed a course of advanced wound healing product, epi fix to the left foot and notable improvement is seen. There are some devitalized tissue and I do not recommend application of cast. I would like him to wash this daily with soap and water the left foot. He is reassured no local signs of infection are noted however these are precautions to prevent further devitalization or bacterial colonization. He has a surgical offloading shoe at home. I did provide him with a prescription to get an offloading cam walker boot for his edema, wound offloading, and walking difficulty. [facility] The offloading pocket was further adjusted now that he has had several days to try to place and out. The offloading pocket appears appropriately aligned to take pressure off of the ulcer site now. I discussed the need for serious offloading for limb salvage purposes. He has tried various shoes and walking boots. He has struggled with the use of such as a walker of a knee roller and has impaired gait. An electric power wheelchair (extra width-heavy duty) is also an option and at this time I recommend this. The CPT code for this device is K0807. This is medically necessary due to his bilateral lower extremity non weightbearing status, he lives alone and does not have assistance, he is a fall risk, and prolonged delayed wound healing is limb and life threatening. Updated prescription was provided again at previous visit. He is now better communicating this plan with his insurance company and has also located a durable medical services manager location to proceed forward with this service. The request has been reviewed by ravi and has been assigned a pending re ference number #[id number]. We will continue to work with his insurance company to see if we get this approved. His noninvasive vascular studies were reviewed from 05-04-2020 which were normal and intervention was previously not recommended. Urine he had bilateral arterial duplex and was advised to follow-up 1 year for updated exam. I reviewed Dr. Bonilla's note from June 14, 2020. To continue to work on decreasing glucose levels. He has a history of hyperglycemia. His last A1c was 8.8% in October 2020. To continue follow-up with primary care physician. To continue to follow-up with nutritional services. To continue to follow-up as advised. He is currently making adjustments with his nutritional habits. He also follows up with project manager, Dr. Arteaga, who is working with him to reduce his hemoglobin A1c with medication and behavioral changes. Smoking cessation was discussed in detail and he was advised on the healing impairment associated with this. To continue with his smoking cessation program. He denies current tobacco use. I also recommend discontinuation of nicotine products for this also contributes to small vessel contraction. The following options exist: Proceeding with a palliative wound care plan which he follows up every 2 to 4 weeks and the goal is to keep the ulcers noninfected and stable, below-knee amputation, revision transmetatarsal amputation with rotational skin flap. Prognosis is guarded with ongoing glucose elevation and inability to comply with nonweightbearing standards. I answered all of his questions today. To return to clinic in 1 week or call sooner if questions, concerns, or progressive worsening. Note: ustyme speech recognition architectural inspector software was used to create portions of this document. Sound-alike and misspelled words, as well as other architectural inspector errors may be contained in the documentation.
[2021-04-04 15:20] VITALS: BP 149/63; PULSE 100; RESP 18; TEMP 35.7; BMI 48.5
--- NOTE | 2021-04-04 23:01 | PN.PCM_ITS ---
History of Present Illness Date of Service: 04/04/21 Chief Complaint: Diabetic left foot ulceration, [place] Grade 3 right leg ulcer (prior and new) History of Wound: This 66-year-old male with multiple comorbidities was seen today for left foot ulcer that is very chronic. He was also seen for right leg ulcer. He denies diarrhea, fever, chill, nausea, vomiting. He denies redness or odor. He denies calf pain. He has debility and difficulty walking. He is trying to get approved for an electric wheelchair because ambulation is limiting his ability to heal his foot ulcers by placing routine weight on these. He has been offloading with a cam walker boot to the left lower extremity as advised. His treatment plan is medically necessary for limb and life salvage. He relates he bumped his right leg again in the shower and sustained a new wound. Progress of Wound: Stable Right leg ulcer new Objective Data Objective Data Vital Signs: Vital Signs Temp Pulse Resp BP 96.3 F L 100 18 149/63 H 04/04/21 15:20 04/04/21 15:20 04/04/21 15:20 04/04/21 15:20 Oxygen Delivery Method Room Air Weight: 147.418 kg Body Mass Index (BMI) 48.5 Physical Exam Const alert and oriented x3 General Appearance: cooperative HEENT normocephalic Extremity Extremity Narrative: No calf tenderness Diminished pulses Left transmetatarsal amputation Muscle wasting noted General Extremity: edema and no tenderness to palpation of joints or extremities; Negative for cyanosis Skin Skin Narrative: no purulence, no streaking, no odor, no infection. Bilateral lower extremity skin is atrophic and hairless. Right leg ulcer has healthy granular base with peripheral epithelialization the left plantar foot ulcer has improvement in healthy granular base tissue with reduction of devitalized central location. There is moderate peripheral callus noted today. Granular base ulcer to the right anterior mid leg; new. General Skin Exam: Negative for erythema Neuro Neuro Narrative: lack of normal epicritic sensation via light touch is consistent with neuropathy status Psych cooperative and affect normal Debridement Note Debridement Note Post-Debridement Measurements and Additional Note: Post-Debridement Measurements/Treatment UZIEL - Nurse 1 - General Ulcer Assessment Start: 03/28/21 13:50 Freq: Status: Active Protocol: MARIA ESTHER Activity Type Activity Date Activity User E-Sign Co-Sign Detail Recorded Client Recorded Date Recorded By Document 03/28/21 13:50 RB [id number] 03/28/21 13:59 RB Document 04/04/21 15:20 [facility] [id number] 04/04/21 15:31 [facility] 03/28/21 04/04/21 13:50 15:20 - Today's Visit Information Type of service Follow-up Visit Follow-up Visit (Physician/CONTRACT CONSULTANT (Physician/CONTRACT CONSULTANT ) ) Arrival Mode Ambulatory,Cane Ambulatory Transfer Assistance None None Patient Identification Verified (Name & Yes Yes ) Patient Requires Transmission-Based No No Precautions Height and Weight Body Mass Index (BMI) 48.5 48.5 BMI Classification Obese Obese Vital Signs Temperature (97.8 F-99.1 F) 98.5 F 96.3 F L Temperature Source Temporal Temporal Pulse Rate (60-100) 103 H 100 Pulse Location Monitor Monitor Respiratory Rate (12-18) 18 18 Respiratory rate source Observation Observation Oxygen Delivery Method Room Air Blood Pressure (90/60-120/80) 132/84 H 149/63 H Blood Pressure Mean (mm Hg) 100 91 Source Monitor Monitor Position Semi-Fowlers Sitting Blood Pressure Location Left Arm Left Arm History Since Last Visit- (Skip if this is Patient's initial visit) Have you changed medications since your No No last visit? Any new allergies or adverse reactions No No Had a fall/change in ADL's that may No No increase risk of falls Signs or symptoms of abuse and/or No No neglect since last visit Have you been in the hospital since your No No last visit? Has dressing in place as prescribed Yes Yes Has compression in place as prescribed No No Has offloadiing in place as prescribed Yes Yes Experienced any changes in pain level or No No management Left Footwear Removable Cast Walker/Walking Boot Right Footwear Regular Shoe Pain Scale: 0-10 Numeric Is Patient Pain Free? Yes - Nurse 1 - General Ulcer Measurement Start: 03/28/21 13:50 Freq: Status: Active Protocol: Activity Type Activity Date Activity User E-Sign Co-Sign Detail Recorded Client Recorded Date Recorded By Document 03/28/21 13:50 RB [id number] 03/28/21 13:59 RB Document 04/04/21 15:20 [facility] [id number] 04/04/21 15:31 [facility] 03/28/21 04/04/21 13:50 15:20 Wound Center Nurse 1 #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 -Combined with other wound No No -Current Size (cm) - Length 12 20.5 -Current Size (cm) - Width 6 9 -Current Size (cm) - Depth 0.1 0.1 -Total Square Cm 72 184.5 -Photo Taken No -Epithelialization None Present -Tunneling No No -Undermining/Tunneling No No -Circular Undermining No No -Exudate Amt Large Medium -Exudate Type Serosanguineous Serosanguineous -Wound Margin Distinct, Flat & Intact Outline Attached -Granulation Amt Medium (34-66%) Large (67-100%) -Granulation Quality [place] Red -Slough/Fibrin Yes Yes -Necrosis Amt Small (1-33%) Small (1-33%) -Necrotic Tissue Type Adherent Slough Adherent Slough -Structure Exposed N/A -Texture (Maria M-wound Skin Appearance) Assessed Assessed, Scarring -Moisture (Maria M-wound Skin Appearance) Assessed Assessed -Color (Maria M-wound Skin Appearance) Assessed Assessed, Erythema -Temperature (Maria M-wound Skin No Abnormality No Abnormality Appearance) (Pt Warm) (Pt Warm) -Tenderness on Palpation (Maria M-wound No No Skin Appearance) -Ulcer Cleansing Wound Cleanser Rinsed/ Irrigated with Saline -Foul Odor after Cleansing No No -Anesthetic Used 4% Lidocaine 4% Lidocaine Solution Solution #13 LEFT MEDIAL PLANTAR -Combined with other wound No No -Current Size (cm) - Length 1.5 1.9 -Current Size (cm) - Width 1.5 1.8 -Current Size (cm) - Depth 0.5 0.5 -Total Square Cm 2.25 3.42 -Photo Taken No -Epithelialization None Present -Tunneling No -Undermining/Tunneling No -Circular Undermining No -Exudate Amt Large Medium -Exudate Type Serosanguineous Serosanguineous -Wound Margin Distinct, Thickened & Outline Rolled Under Attached -Granulation Amt Medium (34-66%) Large (67-100%) -Granulation Quality [place],Red Red -Slough/Fibrin Yes Yes -Necrosis Amt Small (1-33%) Small (1-33%) -Necrotic Tissue Type Adherent Slough Adherent Slough -Structure Exposed N/A -Texture (Maria M-wound Skin Appearance) Assessed, Assessed,Callus Friable ,Localized Edema,Scarring -Moisture (Maria M-wound Skin Appearance) Assessed Assessed,Dry/ Scaly -Color (Maria M-wound Skin Appearance) Assessed Assessed, Erythema -Temperature (Maria M-wound Skin No Abnormality No Abnormality Appearance) (Pt Warm) (Pt Warm) -Tenderness on Palpation (Maria M-wound No No Skin Appearance) -Ulcer Cleansing Wound Cleanser Rinsed/ Irrigated with Saline -Foul Odor after Cleansing No No -Anesthetic Used 4% Lidocaine 4% Lidocaine Solution Solution Lower Limb Edema Present Yes Right Calf (cm) 43.5 Right Ankle (cm) 25.5 Left Calf (cm) 44.5 Left Ankle (cm) 27.4 WC - Nurse 2 - General Ulcer CM Notes Start: 03/28/21 13:50 Freq: Status: Active Protocol: Activity Type Activity Date Activity User E-Sign Co-Sign Detail Recorded Client Recorded Date Recorded By Document 03/28/21 14:31 JF [id number] 03/28/21 14:38 JF Document 04/04/21 18:35 PL [id number] 04/04/21 18:39 PL 03/28/21 04/04/21 14:31 18:35 Wound Center Nurse 2 #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 -Time 14:32 16:00 -Correct Patient Yes Yes -Correct Side, Site, Position Yes Yes -Correct Procedure Yes Yes -Procedure Performed Yes Yes -Type of Procedure Debridement Debridement -Clinical Debridement Subcutaneous Subcutaneous -Tissue Removed Subcutaneous Subcutaneous -Post Debridement (cm) - Length 1.3 20.5 -Post Debridement (cm) - Width 0.6 9.0 -Post Debridement (cm) - Depth 0.2 0.1 -Total Square (Post) (cm) 0.78 184.50 -Area of Debridement (cm) - Length 1.3 20.5 -Area of Debridement (cm) - Width 0.6 9.0 -Total Square (Area) (cm) 0.78 184.50 -Tunneling No No -Undermining/Tunneling No No -Circular Undermining No No -Wound/Ulcer Outcome Not Healed Not Healed -Ulcer Cleansing Rinsed/ Rinsed/ Irrigated with Irrigated with Saline Saline -Foul Odor after Cleansing No No -Bioengineered Tissue No No -Bleeding Controlled with Pressure -Offloading No -Treatment Response Procedure Tolerated Well -Debridement - Subq, 1st 20sq cm Yes No -Debridement, SubQ, ea addt'l 20sq cm 9 or part thereof #13 LEFT MEDIAL PLANTAR -Time 14:33 16:00 -Correct Patient Yes Yes -Correct Side, Site, Position Yes Yes -Correct Procedure Yes Yes -Procedure Performed Yes Yes -Type of Procedure Debridement Debridement -Clinical Debridement Subcutaneous Subcutaneous -Tissue Removed Subcutaneous Subcutaneous -Post Debridement (cm) - Length 1.6 19 -Post Debridement (cm) - Width 1.6 1.8 -Post Debridement (cm) - Depth 0.4 0.5 -Total Square (Post) (cm) 2.56 34.2 -Area of Debridement (cm) - Length 1.6 19 -Area of Debridement (cm) - Width 1.6 1.8 -Total Square (Area) (cm) 2.56 34.2 -Tunneling No No -Undermining/Tunneling No No -Circular Undermining No No -Wound/Ulcer Outcome Not Healed Not Healed -Ulcer Cleansing Rinsed/ Rinsed/ Irrigated with Irrigated with Saline Saline -Foul Odor after Cleansing No No -Bioengineered Tissue No No -Bleeding Controlled with Pressure Pressure -Offloading Yes -Type of Offloading Camwalker -Treatment Response Procedure Procedure Tolerated Well Tolerated Well -Debridement - Subq, 1st 20sq cm No Yes -Debridement, SubQ, ea addt'l 20sq cm 1 or part thereof Pain Scale: 0-10 Numeric Is Patient Pain Free? Yes - Nurse 3 - General Ulcer D/C NN Start: 03/28/21 13:50 Freq: Status: Active Protocol: Activity Type Activity Date Activity User E-Sign Co-Sign Detail Recorded Client Recorded Date Recorded By Document 03/28/21 14:47 [facility] [id number] 03/28/21 14:48 [facility] Document 04/04/21 16:21 [facility] [id number] 04/04/21 16:23 [facility] 03/28/21 04/04/21 14:47 16:21 Wound Care Nurse 3 #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 -Ulcer Cleansing Rinsed/ Rinsed/ Irrigated with Irrigated with Saline Saline -Foul Odor after Cleansing No No -Primary Dressing Applied NonAdherent C Hydrogel ($), Contact Layer, NonAdherent Other Contact Layer -Other Dressing hydrogel -Primary Dressing Covered/Secured with Dry Gauze & Dry Gauze & Roll Gauze, Roll Gauze, Secured with Secured with Tape Tape -Other Covering 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 #13 LEFT MEDIAL PLANTAR -Ulcer Cleansing Rinsed/ Rinsed/ Irrigated with Irrigated with Saline Saline -Foul Odor after Cleansing No No -Primary Dressing Applied Other Other -Other Dressing dakins MOIST TO DRY -Primary Dressing Covered/Secured with Dry Gauze & Dry Gauze & Roll Gauze, Roll Gauze, Secured with Secured with Tape,Other Tape -Other Covering drsg 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 Right -Tubular Bandage Single Layer Single Layer -Size of Tubigrip Used Size E Size D -Size D ($) 1 -Size E ($) 1 Left -Tubular Bandage Single Layer Single Layer -Size of Tubigrip Used Size E Size D -Size D ($) 1 -Size E ($) 1 Treatment Response Procedure Procedure Tolerated Well Tolerated Well Pain Scale: 0-10 Numeric Is Patient Pain Free? Yes Yes WC - Visit Discharge Discharge Condition Stable Stable Ambulatory Status Ambulatory,Cane Ambulatory Transportation Private Auto Private Auto Wound debrided: right anterior lateral leg (prior) and anterior mid leg (new) Wound Grade/Stage: 1 Type of Debridement: Excisional debridement Anesthesia Used: 4% Lidocaine Solution Depth: in the subcutaneous layer Percentage of wound debrided: 100 Instrument Used: #15 blade Tissue Removed: fibrous, devitalized subcutaneous, biofilm, slough Severity: Fat Layer Exposed Amount of bleeding with debridement: Mild Bleeding Controlled with: Pressure Patient tolerated procedure: Patient tolerated procedure well Assessment/Plan Assessment/Plan (1) 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: CODE(S): L97.912 - Non-pressure chronic ulcer of unspecified part of right lower leg with fat layer exposed (2) Non-pressure chronic ulcer of other part of left foot with fat layer exposed: CODE(S): L97.522 - Non-pressure chronic ulcer of other part of left foot with fat layer exposed (3) Type 2 diabetes mellitus with diabetic polyneuropathy: CODE(S): E11.42 - Type 2 diabetes mellitus with diabetic polyneuropathy QUALIFIERS: Diabetes mellitus terminal operations supervisor insulin use: without assisted use Qualified Code(s): E11.42 - Type 2 diabetes mellitus with diabetic polyneuropathy (4) Debility: CODE(S): R53.81 - Other malaise (5) Localized edema: CODE(S): R60.0 - Localized edema PLAN: Procedure- Location: plantar medial left foot grade 1 Excisional debridement performed Anesthesia: 5% lidocaine plain Debridement layer: subcutaneous Amount of debridement: 100% Instrumentation used: 15 blade Tissue debrided: fibrous, devitalized subcutaneous, biofilm, slough Exposed tissue: fat layer Bleeding: mild Hemostasis controlled: pressure The patient tolerated the procedure well I reviewed and discussed his case. Subcutaneous excisional debridement was performed as noted in the clinical panel to the left foot and the right leg. Edema noted and has been addressed. To elevate and reduce salt intake. To continue with Tubigrip compression garments. To change right leg with adaptic and hydrogel daily. To change left foot ulcer daily with Aquacel Ag. He completed a course of advanced wound healing product, epi fix to the left foot and notable improvement is seen. There are some devitalized tissue and I do not recommend application of cast. I would like him to wash this daily with soap and water the left foot. He is reassured no local signs of infection are noted however these are precautions to prevent further devitalization or bacterial colonization. He has a surgical offloading shoe at home. I did provide him with a prescription to get an offloading cam walker boot for his edema, wound offloading, and walking difficulty. He did obtain this at the foot [facility] ankle [facility]. The offloading pocket was further adjusted now that he has had several days to try to place and out. The offloading pocket appears appropriately aligned to take pressure off of the ulcer site now. I discussed the need for serious offloading for limb salvage purposes. He has tried various shoes and walking boots. He has struggled with the use of such as a walker of a knee roller and has impaired gait. An electric power wheelchair (extra width-heavy duty) is also an option and at this time I recommend this. The CPT code for this device is K0807. This is medically necessary due to his bilateral lower extremity non weightbearing status, he lives alone and does not have assistance, he is a fall risk, and prolonged delayed wound healing is limb and life threatening. Updated prescription was provided again at previous visit. He is now better communicating this plan with his insurance company and has also located a durable medical scribe location to proceed forward with this service. The request has been reviewed by ravi and has been assigned a pending reference number #[id number]. We will continue to work with his insurance company to see if we get this approved. His noninvasive vascular studies were reviewed from 05-04-2020 which were normal and intervention was previously not recommended. Urine he had bilateral arterial duplex and was advised to follow-up 1 year for updated exam. I reviewed Dr. Bonilla's note from June 14, 2020. To continue to work on decreasing glucose levels. He has a history of hyperglycemia. His last A1c was 8.8% in October 2020. To continue follow-up with primary care physician. To continue to follow-up with nutritional services. To continue to follow-up as advised. He is currently making adjustments with his nutritional habits. He also follows up with finishing machine operator automatic, Dr. Arteaga, who is working with him to reduce his hemoglobin A1c with medication and behavioral changes. Smoking cessation was discussed in detail and he was advised on the healing impairment associated with this. To continue with his smoking cessation program. He denies current tobacco use. I also recommend discontinuation of nicotine products for this also contributes to small vessel contraction. The following options exist: Proceeding with a palliative wound care plan which he follows up every 2 to 4 weeks and the goal is to keep the ulcers noninfected and stable, below-knee amputation, revision transmetatarsal amputation with rotational skin flap. Prognosis is guarded with ongoing glucose elevation and inability to comply with nonweightbearing standards. I answered all of his questions today. To return to clinic in 1 week or call sooner if questions, concerns, or progressive worsening. Note: [employer] speech recognition relations liaison software was used to create portions of this document. Sound-alike and misspelled words, as well as other relations liaison errors may be contained in the documentation. The medical decision making level is low. There is noted low risk of morbidity after considering this treatment plan and diagnostic data. The problems addressed require a low medical decision making level which includes two or more minor problems, a stable chronic illness, or an acute uncomplicated illness or injury.
[2021-04-11 14:47] VITALS: BP 140/71; PULSE 100; RESP 22; TEMP 36.9; BMI 48.5
--- NOTE | 2021-04-11 15:39 | PCM.WC.PN ---
History of Present Illness Date of Service: 04/11/21 Chief Complaint: Diabetic left foot ulceration, [place] Grade 3 right leg ulcer History of Wound: This 66-year-old male with multiple comorbidities was seen today for left foot ulcer that is very chronic. He was also seen for right leg ulcer. He denies diarrhea, fever, chill, nausea, vomiting. He denies redness or odor. He denies calf pain. He has debility and difficulty walking. He is trying to get approved for an electric wheelchair because ambulation is limiting his ability to heal his foot ulcers by placing routine weight on these. He has been offloading with a cam walker boot to the left lower extremity as advised. His treatment plan is medically necessary for limb and life salvage. He denies new injuries this week Progress of Wound: Stable bilateral Objective Data Objective Data Vital Signs: Vital Signs Temp Pulse Resp BP 98.5 F 100 22 H 140/71 H 04/11/21 14:47 04/11/21 14:47 04/11/21 14:47 04/11/21 14:47 Oxygen Delivery Method Room Air Weight: 147.418 kg Body Mass Index (BMI) 48.5 Physical Exam Const alert and oriented x3 General Appearance: cooperative HEENT normocephalic Extremity Extremity Narrative: No calf tenderness Diminished pulses Left transmetatarsal amputation Muscle wasting noted General Extremity: edema and no tenderness to palpation of joints or extremities; Negative for cyanosis Skin Skin Narrative: no purulence, no streaking, no odor, no infection. Bilateral lower extremity skin is atrophic and hairless. Right leg ulcer has healthy granular base with peripheral epithelialization the left plantar foot ulcer has improvement in healthy granular base tissue without devitalized central location. Reduced peripheral callus is also noted at this site in the left foot today. Full epithelialization is noted to the proximal right leg ulcer site and this is healed. General Skin Exam: Negative for erythema Neuro Neuro Narrative: lack of normal epicritic sensation via light touch is consistent with neuropathy status Psych cooperative and affect normal Debridement Note Debridement Note Post-Debridement Measurements and Additional Note: Post-Debridement Measurements/Treatment UZIEL - Nurse 1 - General Ulcer Assessment Start: 03/28/21 13:50 Freq: Status: Active Protocol: MARIA ESTHER Activity Type Activity Date Activity User E-Sign Co-Sign Detail Recorded Client Recorded Date Recorded By Document 03/28/21 13:50 RB [id number] 03/28/21 13:59 RB Document 04/04/21 15:20 BMF [id number] 04/04/21 15:31 BMF Document 04/11/21 14:47 DL [id number] 04/11/21 14:58 DL 03/28/21 04/04/21 04/11/21 13:50 15:20 14:47 WC - Today's Visit Information Type of service Follow-up Visit Follow-up Visit Follow-up Visit (Physician/PADDED PRODUCTS FINISHER (Physician/PADDED PRODUCTS FINISHER (Physician/PADDED PRODUCTS FINISHER ) ) ) Arrival Mode Ambulatory,Cane Ambulatory Ambulatory, Walker Transfer Assistance None None None Patient Identification Verified (Name & Yes Yes Yes ) Patient Requires Transmission-Based No No No Precautions Finger Stick Blood Sugar(mg/dl) (if 178 indicated): Blood Sugar Stated by Patient Height and Weight Body Mass Index (BMI) 48.5 48.5 48.5 BMI Classification Obese Obese Obese Vital Signs Temperature (97.8 F-99.1 F) 98.5 F 96.3 F L 98.5 F Temperature Source Temporal Temporal Temporal Pulse Rate (60-100) 103 H 100 100 Pulse Location Monitor Monitor Monitor Respiratory Rate (12-18) 18 18 22 H Respiratory rate source Observation Observation Observation Oxygen Delivery Method Room Air Blood Pressure (90/60-120/80) 132/84 H 149/63 H 140/71 H Blood Pressure Mean (mm Hg) 100 91 94 Source Monitor Monitor Monitor Position Semi-Fowlers Sitting Blood Pressure Location Left Arm Left Arm History Since Last Visit- (Skip if this is Patient's initial visit) Have you changed medications since your No No No last visit? Any new allergies or adverse reactions No No No Had a fall/change in ADL's that may No No No increase risk of falls Signs or symptoms of abuse and/or No No No neglect since last visit Have you been in the hospital since your No No last visit? Has dressing in place as prescribed Yes Yes Yes Has compression in place as prescribed No No No Has offloadiing in place as prescribed Yes Yes Yes Experienced any changes in pain level or No No No management Left Footwear Removable Cast Removable Cast Walker/Walking Walker/Walking Boot Boot Right Footwear Regular Shoe Regular Shoe Pain Scale: 0-10 Numeric Is Patient Pain Free? Yes Yes - Nurse 1 - General Ulcer Measurement Start: 03/28/21 13:50 Freq: Status: Active Protocol: Activity Type Activity Date Activity User E-Sign Co-Sign Detail Recorded Client Recorded Date Recorded By Document 03/28/21 13:50 RB [id number] 03/28/21 13:59 RB Document 04/04/21 15:20 [facility] [id number] 04/04/21 15:31 [facility] Document 04/11/21 14:47 DL [id number] 04/11/21 14:58 DL 03/28/21 04/04/21 04/11/21 13:50 15:20 14:47 Wound Center Nurse 1 #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 -Combined with other wound No No -Current Size (cm) - Length 12 20.5 2.6 -Current Size (cm) - Width 6 9 2 -Current Size (cm) - Depth 0.1 0.1 0.1 -Total Square Cm 72 184.5 5.2 -Photo Taken No No -Epithelialization None Present -Tunneling No No -Undermining/Tunneling No No -Circular Undermining No No -Exudate Amt Large Medium Medium -Exudate Type Serosanguineous Serosanguineous Serosanguineous -Wound Margin Distinct, Flat & Intact Distinct, Outline Outline Attached Attached -Granulation Amt Medium (34-66%) Large (67-100%) Small (1-33%) -Granulation Quality [place] Red Red -Slough/Fibrin Yes Yes -Necrosis Amt Small (1-33%) Small (1-33%) Large (67-100%) -Necrotic Tissue Type Adherent Slough Adherent Slough Adherent Slough -Structure Exposed N/A N/A -Texture (Maria M-wound Skin Appearance) Assessed Assessed, Scarring Scarring -Moisture (Maria M-wound Skin Appearance) Assessed Assessed Maceration -Color (Maria M-wound Skin Appearance) Assessed Assessed, Mottled Erythema -Temperature (Maria M-wound Skin No Abnormality No Abnormality No Abnormality Appearance) (Pt Warm) (Pt Warm) (Pt Warm) -Tenderness on Palpation (Maria M-wound No No No Skin Appearance) -Ulcer Cleansing Wound Cleanser Rinsed/ Wound Cleanser Irrigated with Saline -Foul Odor after Cleansing No No -Anesthetic Used 4% Lidocaine 4% Lidocaine 4% Lidocaine Solution Solution Solution #13 LEFT MEDIAL PLANTAR -Combined with other wound No No -Current Size (cm) - Length 1.5 1.9 2 -Current Size (cm) - Width 1.5 1.8 2.2 -Current Size (cm) - Depth 0.5 0.5 0.7 -Total Square Cm 2.25 3.42 4.4 -Photo Taken No No -Epithelialization None Present -Tunneling No -Undermining/Tunneling No -Circular Undermining No -Exudate Amt Large Medium Medium -Exudate Type Serosanguineous Serosanguineous Serosanguineous -Wound Margin Distinct, Thickened & Thickened Outline Rolled Under Attached -Granulation Amt Medium (34-66%) Large (67-100%) Large (67-100%) -Granulation Quality [place],Red Red -Slough/Fibrin Yes Yes -Necrosis Amt Small (1-33%) Small (1-33%) Medium (34-66%) -Necrotic Tissue Type Adherent Slough Adherent Slough Adherent Slough -Structure Exposed N/A N/A -Texture (Maria M-wound Skin Appearance) Assessed, Assessed,Callus Callus,Scarring Friable ,Localized Edema,Scarring -Moisture (Maria M-wound Skin Appearance) Assessed Assessed,Dry/ Dry/Scaly Scaly -Color (Maria M-wound Skin Appearance) Assessed Assessed, Hemosiderin Erythema Staining -Temperature (Maria M-wound Skin No Abnormality No Abnormality No Abnormality Appearance) (Pt Warm) (Pt Warm) (Pt Warm) -Tenderness on Palpation (Maria M-wound No No No Skin Appearance) -Ulcer Cleansing Wound Cleanser Rinsed/ Rinsed/ Irrigated with Irrigated with Saline Saline -Foul Odor after Cleansing No No No -Anesthetic Used 4% Lidocaine 4% Lidocaine 4% Lidocaine Solution Solution Solution Lower Limb Edema Present Yes Right Calf (cm) 43.5 42.6 Right Ankle (cm) 25.5 25.8 Left Calf (cm) 44.5 42.6 Left Ankle (cm) 27.4 27 WC - Nurse 2 - General Ulcer CM Notes Start: 03/28/21 13:50 Freq: Status: Active Protocol: Activity Type Activity Date Activity User E-Sign Co-Sign Detail Recorded Client Recorded Date Recorded By Document 03/28/21 14:31 CASSY [id number] 03/28/21 14:38 JF Document 04/04/21 18:35 PL [id number] 04/04/21 18:39 PL Document 04/11/21 15:33 JF [id number] 04/11/21 15:38 03/28/21 04/04/21 04/11/21 14:31 18:35 15:33 Wound Center Nurse 2 #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 -Time 14:32 16:00 15:36 -Correct Patient Yes Yes Yes -Correct Side, Site, Position Yes Yes Yes -Correct Procedure Yes Yes Yes -Procedure Performed Yes Yes Yes -Type of Procedure Debridement Debridement Debridement -Clinical Debridement Subcutaneous Subcutaneous Subcutaneous -Tissue Removed Subcutaneous Subcutaneous Subcutaneous -Post Debridement (cm) - Length 1.3 20.5 2.4 -Post Debridement (cm) - Width 0.6 9.0 1.7 -Post Debridement (cm) - Depth 0.2 0.1 0.1 -Total Square (Post) (cm) 0.78 184.50 4.08 -Area of Debridement (cm) - Length 1.3 20.5 2.4 -Area of Debridement (cm) - Width 0.6 9.0 1.7 -Total Square (Area) (cm) 0.78 184.50 4.08 -Tunneling No No No -Undermining/Tunneling No No No -Circular Undermining No No No -Wound/Ulcer Outcome Not Healed Not Healed Not Healed -Ulcer Cleansing Rinsed/ Rinsed/ Rinsed/ Irrigated with Irrigated with Irrigated with Saline Saline Saline -Foul Odor after Cleansing No No No -Bioengineered Tissue No No No -Bleeding Controlled with Pressure Pressure -Offloading No No -Treatment Response Procedure Procedure Tolerated Well Tolerated Well -Debridement - Subq, 1st 20sq cm Yes No No -Debridement, SubQ, ea addt'l 20sq cm 9 or part thereof #13 LEFT MEDIAL PLANTAR -Time 14:33 16:00 15:36 -Correct Patient Yes Yes Yes -Correct Side, Site, Position Yes Yes Yes -Correct Procedure Yes Yes Yes -Procedure Performed Yes Yes Yes -Type of Procedure Debridement Debridement Debridement -Clinical Debridement Subcutaneous Subcutaneous Subcutaneous -Tissue Removed Subcutaneous Subcutaneous Subcutaneous -Post Debridement (cm) - Length 1.6 19 2.4 -Post Debridement (cm) - Width 1.6 1.8 2.4 -Post Debridement (cm) - Depth 0.4 0.5 0.6 -Total Square (Post) (cm) 2.56 34.2 5.76 -Area of Debridement (cm) - Length 1.6 19 2.4 -Area of Debridement (cm) - Width 1.6 1.8 2.4 -Total Square (Area) (cm) 2.56 34.2 5.76 -Tunneling No No No -Undermining/Tunneling No No No -Circular Undermining No No No -Wound/Ulcer Outcome Not Healed Not Healed Not Healed -Ulcer Cleansing Rinsed/ Rinsed/ Rinsed/ Irrigated with Irrigated with Irrigated with Saline Saline Saline -Foul Odor after Cleansing No No No -Bioengineered Tissue No No No -Bleeding Controlled with Pressure Pressure Pressure -Offloading Yes Yes -Type of Offloading Camwalker Camwalker -Treatment Response Procedure Procedure Procedure Tolerated Well Tolerated Well Tolerated Well -Debridement - Subq, 1st 20sq cm No Yes No -Debridement, SubQ, ea addt'l 20sq cm 1 or part thereof Pain Scale: 0-10 Numeric Is Patient Pain Free? Yes Yes - Nurse 3 - General Ulcer D/C NN Start: 03/28/21 13:50 Freq: Status: Active Protocol: Activity Type Activity Date Activity User E-Sign Co-Sign Detail Recorded Client Recorded Date Recorded By Document 03/28/21 14:47 [facility] [id number] 03/28/21 14:48 [facility] Document 04/04/21 16:21 [facility] [id number] 04/04/21 16:23 BM 03/28/21 04/04/21 14:47 16:21 Wound Care Nurse 3 #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 -Ulcer Cleansing Rinsed/ Rinsed/ Irrigated with Irrigated with Saline Saline -Foul Odor after Cleansing No No -Primary Dressing Applied NonAdherent C Hydrogel ($), Contact Layer, NonAdherent Other Contact Layer -Other Dressing hydrogel -Primary Dressing Covered/Secured with Dry Gauze & Dry Gauze & Roll Gauze, Roll Gauze, Secured with Secured with Tape Tape -Other Covering drsg per ml biomedical engineering director #13 LEFT MEDIAL PLANTAR -Ulcer Cleansing Rinsed/ Rinsed/ Irrigated with Irrigated with Saline Saline -Foul Odor after Cleansing No No -Primary Dressing Applied Other Other -Other Dressing dakins MOIST TO DRY -Primary Dressing Covered/Secured with Dry Gauze & Dry Gauze & Roll Gauze, Roll Gauze, Secured with Secured with Tape,Other Tape -Other Covering drsg per ml biomedical engineering director Right -Tubular Bandage Single Layer Single Layer -Size of Tubigrip Used Size E Size D -Size D ($) 1 -Size E ($) 1 Left -Tubular Bandage Single Layer Single Layer -Size of Tubigrip Used Size E Size D -Size D ($) 1 -Size E ($) 1 Treatment Response Procedure Procedure Tolerated Well Tolerated Well Pain Scale: 0-10 Numeric Is Patient Pain Free? Yes Yes WC - Visit Discharge Discharge Condition Stable Stable Ambulatory Status Ambulatory,Cane Ambulatory Transportation Private Auto Private Auto Wound debrided: anterior central right leg, plantar left foot Wound Grade/Stage: 1 Type of Debridement: Excisional debridement Anesthesia Used: 4% Lidocaine Solution Depth: in the subcutaneous layer Percentage of wound debrided: 100 Instrument Used: #15 blade Tissue Removed: fibrous, devitalized subcutaneous, biofilm, slough, callous (left) Severity: Fat Layer Exposed Amount of bleeding with debridement: Mild Bleeding Controlled with: Pressure Patient tolerated procedure: Patient tolerated procedure well Assessment/Plan Assessment/Plan (1) 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: CODE(S): L97.912 - Non-pressure chronic ulcer of unspecified part of right lower leg with fat layer exposed (2) Non-pressure chronic ulcer of other part of left foot with fat layer exposed: CODE(S): L97.522 - Non-pressure chronic ulcer of other part of left foot with fat layer exposed (3) Type 2 diabetes mellitus with diabetic polyneuropathy: CODE(S): E11.42 - Type 2 diabetes mellitus with diabetic polyneuropathy QUALIFIERS: Diabetes mellitus usp insulin use: without usp use Qualified Code(s): E11.42 - Type 2 diabetes mellitus with diabetic polyneuropathy (4) Debility: CODE(S): R53.81 - Other malaise (5) Localized edema: CODE(S): R60.0 - Localized edema PLAN: I reviewed and discussed his case. Subcutaneous excisional debridement was performed as noted in the clinical panel to the left foot and the right leg. The chronic proximal right leg ulcer is healed and only remaining one is the one that was identified last week. Edema noted and has been addressed. To elevate and reduce salt intake. To continue with Tubigrip compression garments. To change right leg with adaptic and hydrogel daily. To change left foot ulcer daily with Aquacel Ag. He completed a course of advanced wound healing product, epi fix to the left foot and notable improvement is seen. There are some devitalized tissue and I do not recommend application of cast. I would like him to wash this daily with soap and water the left foot. He is reassured no local signs of infection are noted however these are precautions to prevent further devitalization or bacterial colonization. He has a surgical offloading shoe at home. To offload left foot ulcer with Cam walker offloading Plastizote liner. The offloading pocket appears appropriately aligned to take pressure off of the ulcer site now. I discussed the need for serious offloading for limb salvage purposes. He has tried various shoes and walking boots. He has struggled with the use of such as a walker of a knee roller and has impaired gait. An electric power wheelchair (extra width-heavy duty) is also an option and at this time I recommend this. The CPT code for this device is K0807. This is medically necessary due to his bilateral lower extremity non weightbearing status, he lives alone and does not have assistance, he is a fall risk, and prolonged delayed wound healing is limb and life threatening. Updated prescription was provided again at previous visit. He is now better communicating this plan with his insurance company and has also located a durable diagnostic medical sonographer location to proceed forward with this service. The request has been reviewed by ravi and has been assigned a pending reference number #[id number]. We will continue to work with his insurance company to see if we get this approved. His noninvasive vascular studies were reviewed from 05-04-2020 which were normal and intervention was previously not recommended. Urine he had bilateral arterial duplex and was advised to follow-up 1 year for updated exam. I reviewed Dr. Bonilla's note from June 14, 2020. To continue to work on decreasing glucose levels. He has a history of hyperglycemia. His last A1c was 8.8% in October 2020. To continue follow-up with primary care physician. To continue to follow-up with nutritional services. To continue to follow-up as advised. He is currently making adjustments with his nutritional habits. He also follows up with senior technical editor, Dr. Arteaga, who is working with him to reduce his hemoglobin A1c with medication and behavioral changes. He started a new medication within the past few weeks to better control his glucose levels he reports his home glucose levels have been decreasing. Smoking cessation was discussed in detail and he was advised on the healing impairment associated with this. To continue with his smoking cessation program. He denies current tobacco use. I also recommend discontinuation of nicotine products for this also contributes to small vessel contraction. The following options exist: Proceeding with a palliative wound care plan which he follows up every 2 to 4 weeks and the goal is to keep the ulcers noninfected and stable, below-knee amputation, revision transmetatarsal amputation with rotational skin flap. Prognosis is guarded with ongoing glucose elevation and inability to comply with nonweightbearing standards. I answered all of his questions today. To return to clinic in 1 week with nursing staff in 2 weeks with physician, or call sooner if questions, concerns, or progressive worsening. Note: [employer] speech recognition bryologist software was used to create portions of this document. Sound-alike and misspelled words, as well as other bryologist errors may be contained in the documentation.
== END 2021-04-21 23:59 ==
LOC: WC 14:30
PROVIDERS: PCP Family Medicine Geriatric Medicine; Referring Provider Podiatrist; Visit Provider Podiatrist
DX: E11.622 Type 2 diabetes mellitus with other skin ulcer (principal); L97.812 Non-pressure chronic ulcer of other part of right lower leg with fat layer exposed; E11.621 Type 2 diabetes mellitus with foot ulcer; L97.422 Non-pressure chronic ulcer of left heel and midfoot with fat layer exposed; E11.42 Type 2 diabetes mellitus with diabetic polyneuropathy; R60.0 Localized edema
CPT/HCPCS: 11042; 11045

== ENCOUNTER → 2021-04-24 09:20 | Outpatient (CLI) | payer MEDICARE, MEDICAID, SELFPAY ==
[2021-04-11 14:47] VITALS: BMI 48.5
[2021-04-24 14:32] LABS: Absolute Lymphocyte Count 2.04 X10^3/uL (0.83-4.51); Basophil# 0.11 X10^3/uL; Basophil% 1.1 % (0-1); Eosinophil# 0.35 X10^3/uL; Eosinophils% 3.4 % (0-5); Hematocrit 47.8 % (40-54); Hemoglobin 14.5 g/dL (13.0-16.5); Lymphocyte # 2.04 X10^3/ul (0.83-4.51); Mean Corp Hgb Conc 30.3 g/dL (32-36); Mean Corpuscular Hgb 26.7 pg (27.0-32.0); Mean Corpuscular Volume 87.9 fL (80-94); Mean Platelet Vol. 10.8 fl (6.2-12.0); Monocyte# 0.58 X10^3/uL; Monocyte% 5.7 % (0-10); NRBC Flagged by Analyzer 0 % (0-5); Neutrophil # 6.96 X10^3/uL (2.7-7.7); Neutrophil % 68.3 % (47-70); Platelet Count 253 K/mm3 (150-450); RBC Distribution Width SD 50.4 fl (35.1-43.9); Red Blood Count 5.44 M/mm3 (4.6-6.2); White Blood Count 10.2 K/mm3 (4.4-11.0)
[2021-04-24 14:53] LABS: Vitamin D,25 Hydroxy 44.8 ng/mL
[2021-04-24 15:00] LABS: ALB/GLOB Ratio 0.7 RATIO (0.9-2.4); AST(SGOT) 19 U/L (15-37); Alanine Aminotransfer ALT/SGPT 34 U/L (16-61); Alkaline Phosphatase 99 U/L (45-117); BUN 11 mg/dL (7-18); BUN/Creat Ratio 13.8 RATIO (10-20); Calcium,Total 8.6 mg/dL (8.5-10.1); EST Glomerular Filtration Rate 103 mL/min (>60); Est Glom Filt Rate - Afr Amer 125 mL/min (>60); Globulin 4.4 g/dL (2.2-4.2); Glucose 77 mg/dL (74-106); Potassium 4.2 mmol/L (3.5-5.1); Protein, Total 7.4 g/dL (6.4-8.2); Sodium Level 138 mmol/L (136-145)
[2021-04-24 15:01] LABS: Anion Gap 6 (5-15); Chloride 106 mmol/L (98-107); Thyroid Stim Hormone (TSH) 2.85 uIU/mL (0.358-3.74)
== END ==
PROVIDERS: PCP Family Medicine Geriatric Medicine; Visit Provider Family Medicine Geriatric Medicine
DX: I10 Essential (primary) hypertension (principal); E11.9 Type 2 diabetes mellitus without complications; E55.9 Vitamin D deficiency, unspecified; F52.8 Other sexual dysfunction not due to a substance or known physiological condition
CPT/HCPCS: 36415; 80053; 82306; 84403; 84443; 85025

== ENCOUNTER 2021-05-16 13:00 | Outpatient (RCR) | payer MEDICARE, MEDICAID, SELFPAY ==
[2021-04-22 00:22] VITALS: BP 140/71; PULSE 100; RESP 22; TEMP 36.9
[2021-04-25 13:22] VITALS: BP 145/66; PULSE 85; RESP 18; TEMP 36.4; BMI 48.5
--- NOTE | 2021-04-25 16:53 | PCM.WC.PN ---
History of Present Illness Date of Service: 04/25/21 Chief Complaint: Diabetic left foot ulceration, [place] Grade 3 right leg ulcer History of Wound: This 66-year-old male with multiple comorbidities was seen today for left foot ulcer that is very chronic. He was also seen for right leg ulcer. He denies diarrhea, fever, chill, nausea, vomiting. He denies redness or odor. He denies calf pain. He has debility and difficulty walking. He was trying to get approved for an electric wheelchair because ambulation is limiting his ability to heal his foot ulcers by placing routine weight on these. He has been offloading with a cam walker boot to the left lower extremity as advised. His treatment plan is medically necessary for limb and life salvage. He denies new injuries this week Objective Data Objective Data Vital Signs: Vital Signs Temp Pulse Resp BP 97.6 F L 85 18 145/66 H 04/25/21 13:22 04/25/21 13:22 04/25/21 13:22 04/25/21 13:22 Weight: 147.418 kg Body Mass Index (BMI) 48.5 Physical Exam Const alert and oriented x3 General Appearance: cooperative HEENT normocephalic Extremity Extremity Narrative: No calf tenderness Diminished pulses Left transmetatarsal amputation Muscle wasting noted General Extremity: edema and no tenderness to palpation of joints or extremities; Negative for cyanosis Skin Skin Narrative: no purulence, no streaking, no odor, no infection. Bilateral lower extremity skin is atrophic and hairless. Right leg ulcer has healthy granular base with peripheral epithelialization the left plantar foot ulcer has improvement in healthy granular base tissue without devitalized central location. Reduced peripheral callus is also noted at this site in the left foot today. Full epithelialization is noted to the proximal right leg ulcer site and this is healed. General Skin Exam: Negative for erythema Neuro Neuro Narrative: lack of normal epicritic sensation via light touch is consistent with neuropathy status Psych cooperative and affect normal Debridement Note Debridement Note Post-Debridement Measurements and Additional Note: Post-Debridement Measurements/Treatment UZIEL - Nurse 1 - General Ulcer Assessment Start: 04/25/21 13:22 Freq: Status: Active Protocol: [email or web address].NIC Activity Type Activity Date Activity User E-Sign Co-Sign Detail Recorded Client Recorded Date Recorded By Document 04/25/21 13:22 PL [id number] 04/25/21 13:32 PL 04/25/21 13:22 - Today's Visit Information Type of service Follow-up Visit (Physician/[employer] ) Arrival Mode Ambulatory Transfer Assistance None Patient Identification Verified (Name & Yes ) Patient Requires Transmission-Based No Precautions Safety Precautions NA Finger Stick Blood Sugar(mg/dl) (if 166 indicated): Blood Sugar Stated by Patient Height and Weight Body Mass Index (BMI) 48.5 BMI Classification Obese Vital Signs Temperature (97.8 F-99.1 F) 97.6 F L Temperature Source Temporal Pulse Rate (60-100) 85 Respiratory Rate (12-18) 18 Blood Pressure (90/60-120/80) 145/66 H Blood Pressure Mean (mm Hg) 92 History Since Last Visit- (Skip if this is Patient's initial visit) Have you changed medications since your No last visit? Any new allergies or adverse reactions No Had a fall/change in ADL's that may No increase risk of falls Signs or symptoms of abuse and/or No neglect since last visit Have you been in the hospital since your No last visit? Has dressing in place as prescribed Yes Has compression in place as prescribed Yes Has offloadiing in place as prescribed Yes Experienced any changes in pain level or No management Pain Scale: 0-10 Numeric Is Patient Pain Free? No - Nurse 1 - General Ulcer Measurement Start: 04/25/21 13:22 Freq: Status: Active Protocol: Activity Type Activity Date Activity User E-Sign Co-Sign Detail Recorded Client Recorded Date Recorded By Document 04/25/21 13:22 PL [id number] 04/25/21 13:32 PL 04/25/21 13:22 Wound Center Nurse 1 #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 -Current Size (cm) - Length 2.0 -Current Size (cm) - Width 1.5 -Current Size (cm) - Depth 0.1 -Total Square Cm 3.00 -Photo Taken No -Epithelialization None Present -Tunneling No -Undermining/Tunneling No -Circular Undermining No -Exudate Amt Medium -Exudate Type Serosanguineous -Granulation Amt Large (67-100%) -Granulation Quality [place] -Slough/Fibrin Yes -Necrosis Amt Small (1-33%) -Necrotic Tissue Type Adherent Slough -Temperature (Maria M-wound Skin No Abnormality Appearance) (Pt Warm) -Ulcer Cleansing Rinsed/ Irrigated with Saline -Anesthetic Used 5% Lidocaine Gel #13 LEFT MEDIAL PLANTAR -Current Size (cm) - Length 2.0 -Current Size (cm) - Width 2.5 -Current Size (cm) - Depth 0.7 -Total Square Cm 5.00 -Photo Taken No -Epithelialization None Present -Tunneling No -Undermining/Tunneling No -Circular Undermining No -Exudate Amt Medium -Exudate Type Serosanguineous -Granulation Amt Medium (34-66%) -Granulation Quality Pale -Slough/Fibrin Yes -Necrosis Amt Medium (34-66%) -Necrotic Tissue Type Adherent Slough -Texture (Maria M-wound Skin Appearance) Callus -Moisture (Maria M-wound Skin Appearance) No Abnormality -Color (Maria M-wound Skin Appearance) No Abnormality -Temperature (Maria M-wound Skin No Abnormality Appearance) (Pt Warm) -Tenderness on Palpation (Maria M-wound No Skin Appearance) -Ulcer Cleansing Rinsed/ Irrigated with Saline -Foul Odor after Cleansing No -Anesthetic Used 5% Lidocaine Gel WC - Nurse 2 - General Ulcer CM Notes Start: 04/25/21 13:22 Freq: Status: Active Protocol: Activity Type Activity Date Activity User E-Sign Co-Sign Detail Recorded Client Recorded Date Recorded By Document 04/25/21 13:39 [id number] 04/25/21 13:44 04/25/21 13:39 Wound Center Nurse 2 #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 -Time 13:39 -Correct Patient Yes -Correct Side, Site, Position Yes -Correct Procedure Yes -Procedure Performed Yes -Type of Procedure Debridement -Clinical Debridement Subcutaneous -Tissue Removed Subcutaneous -Post Debridement (cm) - Length 9.5 -Post Debridement (cm) - Width 1 -Post Debridement (cm) - Depth 0.1 -Total Square (Post) (cm) 9.5 -Area of Debridement (cm) - Length 9.5 -Area of Debridement (cm) - Width 1 -Total Square (Area) (cm) 9.5 -Tunneling No -Undermining/Tunneling No -Circular Undermining No -Wound/Ulcer Outcome Not Healed -Ulcer Cleansing Rinsed/ Irrigated with Saline -Foul Odor after Cleansing No -Bioengineered Tissue No -Bleeding Controlled with Pressure -Offloading No -Treatment Response Procedure Tolerated Well -Debridement - Subq, 1st 20sq cm Yes #13 LEFT MEDIAL PLANTAR -Time 13:40 -Correct Patient Yes -Correct Side, Site, Position Yes -Correct Procedure Yes -Procedure Performed Yes -Type of Procedure Debridement -Clinical Debridement Subcutaneous -Tissue Removed Subcutaneous -Post Debridement (cm) - Length 1.8 -Post Debridement (cm) - Width 2.7 -Post Debridement (cm) - Depth 1.1 -Total Square (Post) (cm) 4.86 -Area of Debridement (cm) - Length 1.8 -Area of Debridement (cm) - Width 2.7 -Total Square (Area) (cm) 4.86 -Tunneling No -Undermining/Tunneling No -Circular Undermining No -Wound/Ulcer Outcome Not Healed -Ulcer Cleansing Rinsed/ Irrigated with Saline -Foul Odor after Cleansing No -Bioengineered Tissue No -Bleeding Controlled with Pressure -Offloading No -Treatment Response Procedure Tolerated Well -Debridement - Subq, 1st 20sq cm No Pain Scale: 0-10 Numeric Is Patient Pain Free? Yes - Nurse 3 - General Ulcer D/C NN Start: 04/25/21 13:22 Freq: Status: Active Protocol: Activity Type Activity Date Activity User E-Sign Co-Sign Detail Recorded Client Recorded Date Recorded By Document 04/25/21 14:13 DL [id number] 04/25/21 14:15 DL 04/25/21 14:13 Wound Care Nurse 3 #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 -Ulcer Cleansing Rinsed/ Irrigated with Saline -Foul Odor after Cleansing No -Primary Dressing Applied C Hydrogel ($), NonAdherent Contact Layer -Primary Dressing Covered/Secured with Dry Gauze & Roll Gauze, Secured with Tape -Other Covering tubigrip #13 LEFT MEDIAL PLANTAR -Ulcer Cleansing Rinsed/ Irrigated with Saline -Foul Odor after Cleansing No -Other Dressing moist gauze tday -Primary Dressing Covered/Secured with Dry Gauze & Roll Gauze, Secured with Tape -Other Covering tubigrip Treatment Response Procedure Tolerated Well Pain Scale: 0-10 Numeric Is Patient Pain Free? Yes - Visit Discharge Discharge Condition Stable Ambulatory Status Ambulatory,Cane Notes: resume Dakins at home. 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: CODE(S): L97.912 - Non-pressure chronic ulcer of unspecified part of right lower leg with fat layer exposed (2) Non-pressure chronic ulcer of other part of left foot with fat layer exposed: CODE(S): L97.522 - Non-pressure chronic ulcer of other part of left foot with fat layer exposed (3) Type 2 diabetes mellitus with diabetic polyneuropathy: CODE(S): E11.42 - Type 2 diabetes mellitus with diabetic polyneuropathy QUALIFIERS: Diabetes mellitus correction insulin use: without correction use Qualified Code(s): E11.42 - Type 2 diabetes mellitus with diabetic polyneuropathy (4) Debility: CODE(S): R53.81 - Other malaise (5) Localized edema: CODE(S): R60.0 - Localized edema PLAN: Procedure- Location: right mccloud cluster grade: 1 Excisional debridement performed Anesthesia: 5% lidocaine plain Debridement layer: subcutaneous Amount of debridement: 100% Instrumentation used: 15 blade Tissue debrided: fibrous, devitalized subcutaneous, biofilm, slough Exposed tissue: fat layer Bleeding: mild Hemostasis controlled: pressure The patient tolerated the procedure well I reviewed and discussed his case. Subcutaneous excisional debridement was performed as noted in the clinical panel to the left foot and the right leg. The chronic proximal right leg ulcer is healed and only remaining one is the one that was identified last week. Edema noted and has been addressed. To elevate and reduce salt intake. To continue with Tubigrip compression garments. To change right leg with adaptic and hydrogel daily. To change left foot ulcer daily with Aquacel Ag. He completed a course of advanced wound healing product, epi fix to the left foot and notable improvement is seen. There are some devitalized tissue and I do not recommend application of cast. I would like him to wash this daily with soap and water the left foot. He is reassured no local signs of infection are noted however these are precautions to prevent further devitalization or bacterial colonization. He has a surgical offloading shoe at home. To offload left foot ulcer with Cam walker offloading Plastizote liner. The offloading pocket appears appropriately aligned to take pressure off of the ulcer site now. I discussed the need for serious offloading for limb salvage purposes. He has tried various shoes and walking boots. He has struggled with the use of such as a walker of a knee roller and has impaired gait. An electric power wheelchair (extra width-heavy duty) is also an option and at this time I recommend this. The CPT code for this device is K0807. This is medically necessary due to his bilateral lower extremity non weightbearing status, he lives alone and does not have assistance, he is a fall risk, and prolonged delayed wound healing is limb and life threatening. Updated prescription was provided again at previous visit. He is now better communicating this plan with his insurance company and has also located a durable medical record librarians teacher location to proceed forward with this service. The request has been reviewed by ravi and has been assigned a pending reference number #[id number]. Per the patient, this was recently approved he was advised to proceed forward with getting the device to ensure he is able to offload. His noninvasive vascular studies were reviewed from 05-04-2020 which were normal and intervention was previously not recommended. Urine he had bilateral arterial duplex and was advised to follow-up 1 year for updated exam. I reviewed Dr. Bonilla's note from June 14, 2020. To continue to work on decreasing glucose levels. He has a history of hyperglycemia. His last A1c was 8.8% in October 2020. To continue follow-up with primary care physician. To continue to follow-up with nutritional services. To continue to follow-up as advised. He is currently making adjustments with his nutritional habits. He also follows up with polymer materials consultant, Dr. Arteaga, who is working with him to reduce his hemoglobin A1c with medication and behavioral changes. He started a new medication within the past few weeks to better control his glucose levels he reports his home glucose levels have been decreasing. Smoking cessation was discussed in detail and he was advised on the healing impairment associated with this. To continue with his smoking cessation program. He denies current tobacco use. I also recommend discontinuation of nicotine products for this also contributes to small vessel contraction. The following options exist: Proceeding with a palliative wound care plan which he follows up every 2 to 4 weeks and the goal is to keep the ulcers noninfected and stable, below-knee amputation, revision transmetatarsal amputation with rotational skin flap. Prognosis is guarded with ongoing glucose elevation and inability to comply with nonweightbearing standards. I answered all of his questions today. To return to clinic in 1 week with nursing staff in 2 weeks with physician, or call sooner if questions, concerns, or progressive worsening. Note: [employer] speech recognition panel fitter software was used to create portions of this document. Sound-alike and misspelled words, as well as other panel fitter errors may be contained in the documentation.
[2021-05-02 13:17] VITALS: BP 166/77; PULSE 97; RESP 18; TEMP 36.1; BMI 48.5
--- NOTE | 2021-05-02 15:50 | PN.PCM_ITS ---
History of Present Illness Date of Service: 05/02/21 Chief Complaint: Diabetic left foot ulceration, [place] Grade 3 right leg ulcer History of Wound: This 66-year-old male with multiple comorbidities was seen today for left foot ulcer that is very chronic. He was also seen for right leg ulcer. He denies diarrhea, fever, chill, nausea, vomiting. He denies redness or odor. He denies calf pain. He has debility and difficulty walking. He was trying to get approved for an electric wheelchair in which he was successful. He reports it is schedule to arrive within the next two weeks. He has been offloading with a cam walker boot to the left lower extremity as advised. However he walks on this on a daily basis. His treatment plan is medically necessary for limb and life salvage. He denies new injuries this week Objective Data Objective Data Vital Signs: Vital Signs Temp Pulse Resp BP 97.0 F L 97 18 166/77 H 05/02/21 13:17 05/02/21 13:17 05/02/21 13:17 05/02/21 13:17 Oxygen Delivery Method Room Air Weight: 147.418 kg Body Mass Index (BMI) 48.5 Physical Exam Extremity Extremity Narrative: No calf tenderness Diminished pulses Left transmetatarsal amputation Muscle wasting noted Skin Skin Narrative: no purulence, no streaking, no odor, no infection. Bilateral lower extremity skin is atrophic and hairless. Right leg ulcer has healthy granular base with peripheral epithelialization the left plantar foot ulcer has improvement in healthy granular base tissue without devitalized central location. Reduced peripheral callus is also noted at this site in the left foot today. Full epithelialization is noted to the proximal right leg ulcer site and this is healed. Neuro Neuro Narrative: lack of normal epicritic sensation via light touch is consistent with neuropathy status Debridement Note Debridement Note Post-Debridement Measurements and Additional Note: Post-Debridement Measurements/Treatment WC - Nurse 1 - General Ulcer Assessment Start: 04/25/21 13:22 Freq: Status: Active Protocol: MARIA ESTHER Activity Type Activity Date Activity User E-Sign Co-Sign Detail Recorded Client Recorded Date Recorded By Document 04/25/21 13:22 PL [id number] 04/25/21 13:32 PL Document 05/02/21 13:17 MW [id number] 05/02/21 13:22 MW 04/25/21 05/02/21 13:22 13:17 - Today's Visit Information Type of service Follow-up Visit Follow-up Visit (Physician/PUBLIC AID ELIGIBILITY ASSISTANT (Physician/PUBLIC AID ELIGIBILITY ASSISTANT ) ) Arrival Mode Ambulatory Ambulatory Transfer Assistance None None Accompanied by self Patient Identification Verified (Name & Yes Yes ) Patient Requires Transmission-Based No No Precautions Safety Precautions NA Finger Stick Blood Sugar(mg/dl) (if 166 174 indicated): Blood Sugar Stated by Patient Height and Weight Body Mass Index (BMI) 48.5 48.5 BMI Classification Obese Obese Vital Signs Temperature (97.8 F-99.1 F) 97.6 F L 97.0 F L Temperature Source Temporal Temporal Pulse Rate (60-100) 85 97 Pulse Location Monitor Respiratory Rate (12-18) 18 18 Respiratory rate source Observation Oxygen Delivery Method Room Air Blood Pressure (90/60-120/80) 145/66 H 166/77 H Blood Pressure Mean (mm Hg) 92 106 Source Monitor Position Sitting Blood Pressure Location Left Arm History Since Last Visit- (Skip if this is Patient's initial visit) Have you changed medications since your No No last visit? Any new allergies or adverse reactions No No Had a fall/change in ADL's that may No No increase risk of falls Signs or symptoms of abuse and/or No No neglect since last visit Have you been in the hospital since your No No last visit? Has dressing in place as prescribed Yes Yes Has compression in place as prescribed Yes No Has offloadiing in place as prescribed Yes N/A Experienced any changes in pain level or No No management Left Footwear Removable Cast Walker/Walking Boot Right Footwear Regular Shoe Pain Scale: 0-10 Numeric Is Patient Pain Free? No Yes - Nurse 1 - General Ulcer Measurement Start: 04/25/21 13:22 Freq: Status: Active Protocol: Activity Type Activity Date Activity User E-Sign Co-Sign Detail Recorded Client Recorded Date Recorded By Document 04/25/21 13:22 PL [id number] 04/25/21 13:32 PL Document 05/02/21 13:17 MW [id number] 05/02/21 13:22 MW 04/25/21 05/02/21 13:22 13:17 Wound Center Nurse 1 #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 -Combined with other wound No -Current Size (cm) - Length 2.0 19.5 -Current Size (cm) - Width 1.5 7.0 -Current Size (cm) - Depth 0.1 0.1 -Total Square Cm 3.00 136.50 -Photo Taken No No -Epithelialization None Present None Present -Tunneling No No -Undermining/Tunneling No No -Circular Undermining No No -Exudate Amt Medium Small -Exudate Type Serosanguineous Serosanguineous -Wound Margin Flat & Intact -Granulation Amt Large (67-100%) Medium (34-66%) -Granulation Quality Spearman Spearman -Slough/Fibrin Yes Yes -Necrosis Amt Small (1-33%) Medium (34-66%) -Necrotic Tissue Type Adherent Slough Adherent Slough -Structure Exposed N/A -Texture (Maria M-wound Skin Appearance) Assessed, Localized Edema -Moisture (Maria M-wound Skin Appearance) Assessed -Color (Maria M-wound Skin Appearance) Assessed -Temperature (Maria M-wound Skin No Abnormality No Abnormality Appearance) (Pt Warm) (Pt Warm) -Tenderness on Palpation (Maria M-wound Yes Skin Appearance) -Ulcer Cleansing Rinsed/ Rinsed/ Irrigated with Irrigated with Saline Saline -Foul Odor after Cleansing No -Anesthetic Used 5% Lidocaine 4% Lidocaine Gel Solution #13 LEFT MEDIAL PLANTAR -Combined with other wound No -Current Size (cm) - Length 2.0 2.3 -Current Size (cm) - Width 2.5 2.4 -Current Size (cm) - Depth 0.7 0.9 -Total Square Cm 5.00 5.52 -Photo Taken No No -Epithelialization None Present None Present -Tunneling No No -Undermining/Tunneling No No -Circular Undermining No No -Exudate Amt Medium Medium -Exudate Type Serosanguineous Serosanguineous -Wound Margin Thickened & Rolled Under -Granulation Amt Medium (34-66%) Large (67-100%) -Granulation Quality Pale Red -Slough/Fibrin Yes -Necrosis Amt Medium (34-66%) Small (1-33%) -Necrotic Tissue Type Adherent Slough Adherent Slough -Structure Exposed N/A -Texture (Maria M-wound Skin Appearance) Callus Assessed,Callus -Moisture (Maria M-wound Skin Appearance) No Abnormality Assessed,Dry/ Scaly -Color (Maria M-wound Skin Appearance) No Abnormality No Abnormality, Assessed -Temperature (Maria M-wound Skin No Abnormality No Abnormality Appearance) (Pt Warm) (Pt Warm) -Tenderness on Palpation (Maria M-wound No Yes Skin Appearance) -Ulcer Cleansing Rinsed/ Rinsed/ Irrigated with Irrigated with Saline Saline -Foul Odor after Cleansing No No -Anesthetic Used 5% Lidocaine 4% Lidocaine Gel Solution Lower Limb Edema Present Yes Right Calf (cm) 45.0 Right Ankle (cm) 25.5 Left Calf (cm) 45.5 Left Ankle (cm) 29.5 WC - Nurse 2 - General Ulcer CM Notes Start: 04/25/21 13:22 Freq: Status: Active Protocol: Activity Type Activity Date Activity User E-Sign Co-Sign Detail Recorded Client Recorded Date Recorded By Document 04/25/21 13:39 JF [id number] 04/25/21 13:44 Document 05/02/21 13:36 [id number] 05/02/21 13:42 04/25/21 05/02/21 13:39 13:36 Wound Center Nurse 2 #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 -Time 13:39 13:36 -Correct Patient Yes Yes -Correct Side, Site, Position Yes Yes -Correct Procedure Yes Yes -Procedure Performed Yes Yes -Type of Procedure Debridement Debridement -Clinical Debridement Subcutaneous Subcutaneous -Tissue Removed Subcutaneous Subcutaneous -Post Debridement (cm) - Length 9.5 19.5 -Post Debridement (cm) - Width 1 7 -Post Debridement (cm) - Depth 0.1 0.1 -Total Square (Post) (cm) 9.5 136.5 -Area of Debridement (cm) - Length 9.5 1.9 -Area of Debridement (cm) - Width 1 0.7 -Total Square (Area) (cm) 9.5 1.33 -Tunneling No No -Undermining/Tunneling No No -Circular Undermining No No -Wound/Ulcer Outcome Not Healed Not Healed -Ulcer Cleansing Rinsed/ Rinsed/ Irrigated with Irrigated with Saline Saline -Foul Odor after Cleansing No No -Bioengineered Tissue No No -Bleeding Controlled with Pressure Pressure -Offloading No No -Treatment Response Procedure Procedure Not Tolerated Well Tolerated Well -Debridement - Subq, 1st 20sq cm Yes Yes #13 LEFT MEDIAL PLANTAR -Time 13:40 13:37 -Correct Patient Yes Yes -Correct Side, Site, Position Yes Yes -Correct Procedure Yes Yes -Procedure Performed Yes Yes -Type of Procedure Debridement Debridement -Clinical Debridement Subcutaneous Subcutaneous -Tissue Removed Subcutaneous Subcutaneous -Post Debridement (cm) - Length 1.8 2.4 -Post Debridement (cm) - Width 2.7 2.4 -Post Debridement (cm) - Depth 1.1 1 -Total Square (Post) (cm) 4.86 5.76 -Area of Debridement (cm) - Length 1.8 2.4 -Area of Debridement (cm) - Width 2.7 2.4 -Total Square (Area) (cm) 4.86 5.76 -Tunneling No No -Undermining/Tunneling No No -Circular Undermining No No -Wound/Ulcer Outcome Not Healed Not Healed -Ulcer Cleansing Rinsed/ Rinsed/ Irrigated with Irrigated with Saline Saline -Foul Odor after Cleansing No No -Bioengineered Tissue No No -Bleeding Controlled with Pressure -Offloading No No -Treatment Response Procedure Procedure Tolerated Well Tolerated Well -Debridement - Subq, 1st 20sq cm No No Pain Scale: 0-10 Numeric Is Patient Pain Free? Yes Yes WC - Nurse 3 - General Ulcer D/C NN Start: 04/25/21 13:22 Freq: Status: Active Protocol: Activity Type Activity Date Activity User E-Sign Co-Sign Detail Recorded Client Recorded Date Recorded By Document 04/25/21 14:13 DL [id number] 04/25/21 14:15 DL Document 05/02/21 13:59 RB [id number] 05/02/21 14:00 RB 04/25/21 05/02/21 14:13 13:59 Wound Care Nurse 3 #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 -Ulcer Cleansing Rinsed/ Rinsed/ Irrigated with Irrigated with Saline Saline -Foul Odor after Cleansing No -Primary Dressing Applied C Hydrogel ($), NonAdherent Contact Layer -Other Dressing hydrogel -Primary Dressing Covered/Secured with Dry Gauze & Dry Gauze,Dry Roll Gauze, Gauze & Roll Secured with Gauze,Secured Tape with Tape -Other Covering tubigrip #13 LEFT MEDIAL PLANTAR -Ulcer Cleansing Rinsed/ Rinsed/ Irrigated with Irrigated with Saline Saline -Foul Odor after Cleansing No -Other Dressing moist gauze hydrogel tday -Primary Dressing Covered/Secured with Dry Gauze & Dry Gauze,Dry Roll Gauze, Gauze & Roll Secured with Gauze,Secured Tape with Tape -Other Covering tubigrip Right -Tubular Bandage Single Layer -Size of Tubigrip Used Size E -Size E ($) 1 -Other guerrero Left -Tubular Bandage Single Layer -Size of Tubigrip Used Size E -Size E ($) 1 -Other guerrero Treatment Response Procedure Tolerated Well Pain Scale: 0-10 Numeric Is Patient Pain Free? Yes Yes WC - Visit Discharge Discharge Condition Stable Stable Ambulatory Status Ambulatory,Cane Ambulatory,Cane Transportation Private Auto Medication Reconcilliation completed & No provided to patient/care provider Clinical Summary of Care Provided Yes Notes: resume Dakins at home. 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: CODE(S): L97.912 - Non-pressure chronic ulcer of unspecified part of right lower leg with fat layer exposed (2) Non-pressure chronic ulcer of other part of left foot with fat layer exposed: CODE(S): L97.522 - Non-pressure chronic ulcer of other part of left foot with fat layer exposed (3) Type 2 diabetes mellitus with diabetic polyneuropathy: CODE(S): E11.42 - Type 2 diabetes mellitus with diabetic polyneuropathy QUALIFIERS: Diabetes mellitus group home insulin use: without 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 Qualified Code(s): E11.42 - Type 2 diabetes mellitus with diabetic polyneuropathy (4) Debility: CODE(S): R53.81 - Other malaise (5) Localized edema: CODE(S): R60.0 - Localized edema PLAN: Procedure- Location: right mccloud cluster grade: 1 Excisional debridement performed Anesthesia: 5% lidocaine plain Debridement layer: subcutaneous Amount of debridement: 5% Instrumentation used: 15 blade Tissue debrided: fibrous, devitalized subcutaneous, biofilm, slough Exposed tissue: fat layer Bleeding: mild Hemostasis controlled: pressure The patient tolerated the procedure well Procedure- Location: plantar medial left foot grade 1 Excisional debridement performed Anesthesia: 5% lidocaine plain Debridement layer: subcutaneous Amount of debridement: 100% Instrumentation used: 15 blade Tissue debrided: fibrous, devitalized subcutaneous, biofilm, slough Exposed tissue: fat layer Bleeding: mild Hemostasis controlled: pressure The patient tolerated the procedure well I reviewed and discussed his case. Subcutaneous excisional debridement was performed as noted in the clinical panel to the left foot and the right leg cluster. Edema noted and has been addressed. To elevate and reduce salt intake. To continue with Tubigrip compression garments. To change right leg with adaptic and hydrogel daily. To change left foot ulcer daily with Aquacel Ag. He completed a course of advanced wound healing product, epi fix to the left foot and notable improvement is seen. There are some devitalized tissue and I do not recommend application of cast. I would like him to wash this daily with soap and water the left foot. He is reassured no local signs of infection are noted however these are precautions to prevent further devitalization or bacterial colonization. He has a surgical offloading shoe at home. To offload left foot ulcer with Cam walker offloading Plastizote liner. The offloading pocket appears appropriately aligned to take pressure off of the ulcer site now. I discussed the need for serious offloading for limb salvage purposes. He has tried various shoes and walking boots. He has struggled with the use of such as a walker of a knee roller and has impaired gait. An electric power wheelchair (extra width-heavy duty) is also an option and at this time I recommend this. The CPT code for this device is K0807. This is medically necessary due to his bilateral lower extremity non weightbearing status, he lives alone and does not have assistance, he is a fall risk, and prolonged delayed wound healing is limb and life threatening. Updated prescription was provided again at previous visit. He is now better communicating this plan with his insurance company and has also located a durable medical device assembler location to proceed forward with this service. The request has been reviewed by ravi and has been assigned a pending reference number #[id number]. Per the patient, this was recently approved he was advised to proceed forward with getting the device to ensure he is able to offload. Anticipated arrival time is about two weeks. He also recently installed a ramp at his home to accommodate home entry. His noninvasive vascular studies were reviewed from 05-04-2020 which were normal and intervention was previously not recommended. Urine he had bilateral arterial duplex and was advised to follow-up 1 year for updated exam. I reviewed Dr. Bonilla's note from June 14, 2020. To continue to work on decreasing glucose levels. He has a history of hyperglycemia. His last A1c was 8.8% in October 2020. To continue follow-up with primary care physician. To continue to follow-up with nutritional services. To continue to follow-up as advised. He is currently making adjustments with his nutritional habits. He also follows up with rn traveling, Dr. Arteaga, who is working with him to reduce his hemoglobin A1c with medication and behavioral changes. He started a new medication within the past few weeks to better control his glucose levels he reports his home glucose levels have been decreasing. Smoking cessation was discussed in detail and he was advised on the healing impairment associated with this. To continue with his smoking cessation program. He denies current tobacco use. I also recommend discontinuation of nicotine products for this also contributes to small vessel contraction. The following options exist: Proceeding with a palliative wound care plan which he follows up every 2 to 4 weeks and the goal is to keep the ulcers noninfected and stable, below-knee amputation, revision transmetatarsal amputation with rotational skin flap. Prognosis is guarded with ongoing glucose elevation and inability to comply with nonweightbearing standards. He is hopeful that wheelchair with aid offloading goals. I answered all of his questions today. To return to clinic in 1 week with nursing staff in 2 weeks with physician, or call sooner if questions, concerns, or progressive worsening. Note: [employer] speech recognition encoding machine operator software was used to create portions of this document. Sound-alike and misspelled words, as well as other encoding machine operator errors may be contained in the documentation.
[2021-05-16 13:05] VITALS: BP 156/146; PULSE 68; RESP 20; TEMP 36.7; BMI 48.5
--- NOTE | 2021-05-16 14:41 | PCM.WC.PN ---
History of Present Illness Date of Service: 05/16/21 Chief Complaint: Diabetic left foot ulceration, [place] Grade 3 right leg ulcer cluster History of Wound: This 66-year-old male with multiple comorbidities was seen today for left foot ulcer that is very chronic. He was also seen for right leg ulcer. He denies diarrhea, fever, chill, nausea, vomiting. He denies redness or odor. He denies calf pain. He has debility and difficulty walking. He was trying to get approved for an electric wheelchair in which he was successful. He set up a ramp to enter his home. He has been offloading with a cam walker boot to the left lower extremity as advised. However he walks on this on a daily basis. His treatment plan is medically necessary for limb and life salvage. He denies new concerns today. Progress of Wound: stable left improving right leg Objective Data Objective Data Vital Signs: Vital Signs Temp Pulse Resp BP 98.1 F 68 20 H 156/146 H 05/16/21 13:05 05/16/21 13:05 05/16/21 13:05 05/16/21 13:05 Oxygen Delivery Method Room Air Weight: 147.418 kg Body Mass Index (BMI) 48.5 Physical Exam Extremity Extremity Narrative: No calf tenderness Diminished pulses Left transmetatarsal amputation Muscle wasting noted Skin Skin Narrative: no purulence, no streaking, no odor, no infection. Bilateral lower extremity skin is atrophic and hairless. Right leg ulcer has healthy granular base with peripheral epithelialization the left plantar foot ulcer has improvement in healthy granular base tissue without devitalized central location. moderate callous noted left foot. Neuro Neuro Narrative: lack of normal epicritic sensation via light touch is consistent with neuropathy status Debridement Note Debridement Note Post-Debridement Measurements and Additional Note: Post-Debridement Measurements/Treatment WC - Nurse 1 - General Ulcer Assessment Start: 04/25/21 13:22 Freq: Status: Active Protocol: MARIA ESTHER Activity Type Activity Date Activity User E-Sign Co-Sign Detail Recorded Client Recorded Date Recorded By Document 04/25/21 13:22 PL [id number] 04/25/21 13:32 PL Document 05/02/21 13:17 MW [id number] 05/02/21 13:22 MW Document 05/16/21 13:05 DL [id number] 05/16/21 13:17 DL 0805/02/21 05/16/21 13:22 13:17 13:05 WC - Today's Visit Information Type of service Follow-up Visit Follow-up Visit Follow-up Visit (Physician/UI UX ENGINEER (Physician/UI UX ENGINEER (Physician/UI UX ENGINEER ) ) ) Arrival Mode Ambulatory Ambulatory Ambulatory,Cane Transfer Assistance None None None Accompanied by self Patient Identification Verified (Name & Yes Yes Yes ) Patient Requires Transmission-Based No No No Precautions Safety Precautions NA NA Finger Stick Blood Sugar(mg/dl) (if 166 174 178 indicated): Blood Sugar Stated by Stated by Patient Patient Height and Weight Body Mass Index (BMI) 48.5 48.5 48.5 BMI Classification Obese Obese Obese Vital Signs Temperature (97.8 F-99.1 F) 97.6 F L 97.0 F L 98.1 F Temperature Source Temporal Temporal Temporal Pulse Rate (60-100) 85 97 68 Pulse Location Monitor Monitor Respiratory Rate (12-18) 18 18 20 H Respiratory rate source Observation Observation Oxygen Delivery Method Room Air Blood Pressure (90/60-120/80) 145/66 H 166/77 H 156/146 H Blood Pressure Mean (mm Hg) 92 106 149 Source Monitor Position Sitting Blood Pressure Location Left Arm History Since Last Visit- (Skip if this is Patient's initial visit) Have you changed medications since your No No No last visit? Any new allergies or adverse reactions No No No Had a fall/change in ADL's that may No No No increase risk of falls Signs or symptoms of abuse and/or No No No neglect since last visit Have you been in the hospital since your No No No last visit? Has dressing in place as prescribed Yes Yes Yes Has compression in place as prescribed Yes No Yes Has offloadiing in place as prescribed Yes N/A Yes Experienced any changes in pain level or No No No management Left Footwear Removable Cast Walker/Walking Boot Right Footwear Regular Shoe Pain Scale: 0-10 Numeric Is Patient Pain Free? No Yes Yes - Nurse 1 - General Ulcer Measurement Start: 04/25/21 13:22 Freq: Status: Active Protocol: Activity Type Activity Date Activity User E-Sign Co-Sign Detail Recorded Client Recorded Date Recorded By Document 04/25/21 13:22 PL [id number] 04/25/21 13:32 PL Document 05/02/21 13:17 MW [id number] 05/02/21 13:22 MW Document 05/16/21 13:05 DL [id number] 05/16/21 13:17 DL 04/25/21 05/02/21 05/16/21 13:22 13:17 13:05 Wound Center Nurse 1 #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 -Combined with other wound No -Current Size (cm) - Length 2.0 19.5 20 -Current Size (cm) - Width 1.5 7.0 5.8 -Current Size (cm) - Depth 0.1 0.1 0.1 -Total Square Cm 3.00 136.50 116.0 -Photo Taken No No No -Epithelialization None Present None Present -Tunneling No No -Undermining/Tunneling No No -Circular Undermining No No -Exudate Amt Medium Small Small -Exudate Type Serosanguineous Serosanguineous Serosanguineous -Wound Margin Flat & Intact Distinct, Outline Attached -Granulation Amt Large (67-100%) Medium (34-66%) Medium (34-66%) -Granulation Quality Blende Blende Red -Slough/Fibrin Yes Yes -Necrosis Amt Small (1-33%) Medium (34-66%) Medium (34-66%) -Necrotic Tissue Type Adherent Slough Adherent Slough Adherent Slough -Structure Exposed N/A N/A -Texture (Maria M-wound Skin Appearance) Assessed, Scarring Localized Edema -Moisture (Maria M-wound Skin Appearance) Assessed No Abnormality -Color (Maria M-wound Skin Appearance) Assessed Hemosiderin Staining -Temperature (Maria M-wound Skin No Abnormality No Abnormality No Abnormality Appearance) (Pt Warm) (Pt Warm) (Pt Warm) -Tenderness on Palpation (Maria M-wound Yes No Skin Appearance) -Ulcer Cleansing Rinsed/ Rinsed/ Wound Cleanser Irrigated with Irrigated with Saline Saline -Foul Odor after Cleansing No No -Anesthetic Used 5% Lidocaine 4% Lidocaine 4% Lidocaine Gel Solution Solution #13 LEFT MEDIAL PLANTAR -Combined with other wound No -Current Size (cm) - Length 2.0 2.3 2.5 -Current Size (cm) - Width 2.5 2.4 3 -Current Size (cm) - Depth 0.7 0.9 0.8 -Total Square Cm 5.00 5.52 7.5 -Photo Taken No No No -Epithelialization None Present None Present -Tunneling No No -Undermining/Tunneling No No -Circular Undermining No No -Exudate Amt Medium Medium Medium -Exudate Type Serosanguineous Serosanguineous Serosanguineous -Wound Margin Thickened & Thickened Rolled Under -Granulation Amt Medium (34-66%) Large (67-100%) Large (67-100%) -Granulation Quality Pale Red Red -Slough/Fibrin Yes -Necrosis Amt Medium (34-66%) Small (1-33%) Small (1-33%) -Necrotic Tissue Type Adherent Slough Adherent Slough Adherent Slough -Structure Exposed N/A N/A -Texture (Maria M-wound Skin Appearance) Callus Assessed,Callus Callus,Scarring -Moisture (Maria M-wound Skin Appearance) No Abnormality Assessed,Dry/ Dry/Scaly Scaly -Color (Maria M-wound Skin Appearance) No Abnormality No Abnormality, Hemosiderin Assessed Staining -Temperature (Maria M-wound Skin No Abnormality No Abnormality No Abnormality Appearance) (Pt Warm) (Pt Warm) (Pt Warm) -Tenderness on Palpation (Maria M-wound No Yes No Skin Appearance) -Ulcer Cleansing Rinsed/ Rinsed/ Wound Cleanser Irrigated with Irrigated with Saline Saline -Foul Odor after Cleansing No No No -Anesthetic Used 5% Lidocaine 4% Lidocaine 4% Lidocaine Gel Solution Solution Lower Limb Edema Present Yes Right Calf (cm) 45.0 43 Right Ankle (cm) 25.5 25.4 Left Calf (cm) 45.5 44 Left Ankle (cm) 29.5 27.3 WC - Nurse 2 - General Ulcer CM Notes Start: 04/25/21 13:22 Freq: Status: Active Protocol: Activity Type Activity Date Activity User E-Sign Co-Sign Detail Recorded Client Recorded Date Recorded By Document 04/25/21 13:39 [id number] 04/25/21 13:44 Document 05/02/21 13:36 [id number] 05/02/21 13:42 Document 05/16/21 13:37 [id number] 05/16/21 13:41 04/25/21 05/02/21 05/16/21 13:39 13:36 13:37 Wound Center Nurse 2 #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 -Time 13:39 13:36 13:38 -Correct Patient Yes Yes Yes -Correct Side, Site, Position Yes Yes Yes -Correct Procedure Yes Yes Yes -Procedure Performed Yes Yes Yes -Type of Procedure Debridement Debridement Debridement -Clinical Debridement Subcutaneous Subcutaneous Subcutaneous -Tissue Removed Subcutaneous Subcutaneous Subcutaneous -Post Debridement (cm) - Length 9.5 19.5 5.8 -Post Debridement (cm) - Width 1 7 1 -Post Debridement (cm) - Depth 0.1 0.1 0.1 -Total Square (Post) (cm) 9.5 136.5 5.8 -Area of Debridement (cm) - Length 9.5 1.9 5.8 -Area of Debridement (cm) - Width 1 0.7 1 -Total Square (Area) (cm) 9.5 1.33 5.8 -Tunneling No No No -Undermining/Tunneling No No No -Circular Undermining No No No -Wound/Ulcer Outcome Not Healed Not Healed Not Healed -Ulcer Cleansing Rinsed/ Rinsed/ Rinsed/ Irrigated with Irrigated with Irrigated with Saline Saline Saline -Foul Odor after Cleansing No No No -Bioengineered Tissue No No No -Bleeding Controlled with Pressure Pressure Pressure -Offloading No No No -Treatment Response Procedure Procedure Not Procedure Tolerated Well Tolerated Well Tolerated Well -Debridement - Subq, 1st 20sq cm Yes Yes No #13 LEFT MEDIAL PLANTAR -Time 13:40 13:37 13:39 -Correct Patient Yes Yes Yes -Correct Side, Site, Position Yes Yes Yes -Correct Procedure Yes Yes Yes -Procedure Performed Yes Yes Yes -Type of Procedure Debridement Debridement Incision & Drainage -Clinical Debridement Subcutaneous Subcutaneous Subcutaneous -Tissue Removed Subcutaneous Subcutaneous Subcutaneous -Post Debridement (cm) - Length 1.8 2.4 2.5 -Post Debridement (cm) - Width 2.7 2.4 3.1 -Post Debridement (cm) - Depth 1.1 1 0.8 -Total Square (Post) (cm) 4.86 5.76 7.75 -Area of Debridement (cm) - Length 1.8 2.4 2.5 -Area of Debridement (cm) - Width 2.7 2.4 3.1 -Total Square (Area) (cm) 4.86 5.76 7.75 -Tunneling No No No -Undermining/Tunneling No No No -Circular Undermining No No No -Wound/Ulcer Outcome Not Healed Not Healed Not Healed -Ulcer Cleansing Rinsed/ Rinsed/ Rinsed/ Irrigated with Irrigated with Irrigated with Saline Saline Saline -Foul Odor after Cleansing No No No -Bioengineered Tissue No No No -Bleeding Controlled with Pressure Pressure -Offloading No No Yes -Type of Offloading Camwalker -Treatment Response Procedure Procedure Procedure Tolerated Well Tolerated Well Tolerated Well -Debridement - Subq, 1st 20sq cm No No Yes Pain Scale: 0-10 Numeric Is Patient Pain Free? Yes Yes Yes WC - Nurse 3 - General Ulcer D/C NN Start: 04/25/21 13:22 Freq: Status: Active Protocol: Activity Type Activity Date Activity User E-Sign Co-Sign Detail Recorded Client Recorded Date Recorded By Document 04/25/21 14:13 DL [id number] 04/25/21 14:15 DL Document 05/02/21 13:59 RB [id number] 05/02/21 14:00 RB Document 05/16/21 13:53 RB [id number] 05/16/21 13:55 RB 04/25/21 05/02/21 05/16/21 14:13 13:59 13:53 Wound Care Nurse 3 #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 -Ulcer Cleansing Rinsed/ Rinsed/ Wound Cleanser Irrigated with Irrigated with Saline Saline -Foul Odor after Cleansing No -Primary Dressing Applied C Hydrogel ($), C Hydrogel ($), NonAdherent NonAdherent Contact Layer Contact Layer -Other Dressing hydrogel -Primary Dressing Covered/Secured with Dry Gauze & Dry Gauze,Dry Dry Gauze,Dry Roll Gauze, Gauze & Roll Gauze & Roll Secured with Gauze,Secured Gauze,Secured Tape with Tape with Tape -Other Covering tubigrip #13 LEFT MEDIAL PLANTAR -Ulcer Cleansing Rinsed/ Rinsed/ Wound Cleanser Irrigated with Irrigated with Saline Saline -Foul Odor after Cleansing No -Primary Dressing Applied Aquacel AG 2x2 -Other Dressing moist gauze hydrogel tday -Primary Dressing Covered/Secured with Dry Gauze & Dry Gauze,Dry Dry Gauze,Dry Roll Gauze, Gauze & Roll Gauze & Roll Secured with Gauze,Secured Gauze,Secured Tape with Tape with Tape -Other Covering tubigrip -Aquacel AG 2x2 1 Right -Tubular Bandage Single Layer Single Layer -Size of Tubigrip Used Size E Size E -Size E ($) 1 1 -Other guerrero Left -Tubular Bandage Single Layer Single Layer -Size of Tubigrip Used Size E Size E -Size E ($) 1 1 -Other guerrero Treatment Response Procedure Procedure Tolerated Well Tolerated Well Pain Scale: 0-10 Numeric Is Patient Pain Free? Yes Yes Yes WC - Visit Discharge Discharge Condition Stable Stable Stable Ambulatory Status Ambulatory,Cane Ambulatory,Cane Ambulatory Transportation Private Auto Private Auto Medication Reconcilliation completed & No No provided to patient/care provider Clinical Summary of Care Provided Yes Yes Notes: resume Dak[facility] at home. 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: CODE(S): L97.912 - Non-pressure chronic ulcer of unspecified part of right lower leg with fat layer exposed (2) Non-pressure chronic ulcer of other part of left foot with fat layer exposed: CODE(S): L97.522 - Non-pressure chronic ulcer of other part of left foot with fat layer exposed (3) Type 2 diabetes mellitus with diabetic polyneuropathy: CODE(S): E11.42 - Type 2 diabetes mellitus with diabetic polyneuropathy QUALIFIERS: Diabetes mellitus marine oil terminal superintendent insulin use: without marine oil terminal superintendent use Qualified Code(s): E11.42 - Type 2 diabetes mellitus with diabetic polyneuropathy (4) Debility: CODE(S): R53.81 - Other malaise (5) Localized edema: CODE(S): R60.0 - Localized edema PLAN: Procedure- Location: right mccloud cluster grade: 1 Excisional debridement performed Anesthesia: 5% lidocaine plain Debridement layer: subcutaneous Amount of debridement: 5% Instrumentation used: 15 blade Tissue debrided: fibrous, devitalized subcutaneous, biofilm, slough Exposed tissue: fat layer Bleeding: mild Hemostasis controlled: pressure The patient tolerated the procedure well I reviewed and discussed his case. Subcutaneous excisional debridement was performed as noted in the clinical panel to the left foot and the right leg cluster. Edema noted and has been addressed. To elevate and reduce salt intake. To continue with Tubigrip compression garments. To change right leg with adaptic and hydrogel daily. To change left foot ulcer daily with Aquacel Ag. He completed a course of advanced wound healing product, epi fix to the left foot and notable improvement is seen. There are some devitalized tissue and I do not recommend application of cast. I would like him to wash this daily with soap and water the left foot. He is reassured no local signs of infection are noted however these are precautions to prevent further devitalization or bacterial colonization. He has a surgical offloading shoe at home. To offload left foot ulcer with Cam walker offloading Plastizote liner. The offloading pocket appears appropriately aligned to take pressure off of the ulcer site now. I discussed the need for serious offloading for limb salvage purposes. He has tried various shoes and walking boots. He has struggled with the use of such as a walker of a knee roller and has impaired gait. An electric power wheelchair (extra width-heavy duty) is also an option and at this time I recommend this. The CPT code for this device is K0807. This is medically necessary due to his bilateral lower extremity non weightbearing status, he lives alone and does not have assistance, he is a fall risk, and prolonged delayed wound healing is limb and life threatening. Updated prescription was provided again at previous visit. He is now better communicating this plan with his insurance company and has also located a durable emergency medical services coordinator location to proceed forward with this service. The request has been reviewed by ravi and has been assigned a pending reference number #[id number]. Per the patient, this was recently approved he was advised to proceed forward with getting the device to ensure he is able to offload. Anticipated arrival time is about two weeks. He also recently installed a ramp at his home to accommodate home entry. His noninvasive vascular studies were reviewed from 05-04-2020 which were normal and intervention was previously not recommended. Urine he had bilateral arterial duplex and was advised to follow-up 1 year for updated exam. I reviewed Dr. Bonilla's note from June 14, 2020. To continue to work on decreasing glucose levels. He has a history of hyperglycemia. His last A1c was 8.8% in October 2020. To continue follow-up with primary care physician. To continue to follow-up with nutritional services. To continue to follow-up as advised. He is currently making adjustments with his nutritional habits. He also follows up with elderly companion, Dr. Arteaga, who is working with him to reduce his hemoglobin A1c with medication and behavioral changes. He started a new medication within the past few weeks to better control his glucose levels he reports his home glucose levels have been decreasing. Smoking cessation was discussed in detail and he was advised on the healing impairment associated with this. To continue with his smoking cessation program. He denies current tobacco use. I also recommend discontinuation of nicotine products for this also contributes to small vessel contraction. The following options exist: Proceeding with a palliative wound care plan which he follows up every 2 to 4 weeks and the goal is to keep the ulcers noninfected and stable, below-knee amputation, revision transmetatarsal amputation with rotational skin flap. Prognosis is guarded with ongoing glucose elevation and inability to comply with nonweightbearing standards. He is hopeful that wheelchair with aid offloading goals. I answered all of his questions today. To return to clinic in 2 weeks with physician, or call sooner if questions, concerns, or progressive worsening. Note: [employer] speech recognition wash driller software was used to create portions of this document. Sound-alike and misspelled words, as well as other wash driller errors may be contained in the documentation.
== END 2021-05-22 23:59 ==
LOC: WC 13:00
PROVIDERS: PCP Family Medicine Geriatric Medicine; Referring Provider Podiatrist; Visit Provider Podiatrist
DX: E11.621 Type 2 diabetes mellitus with foot ulcer (principal); L97.522 Non-pressure chronic ulcer of other part of left foot with fat layer exposed; E11.42 Type 2 diabetes mellitus with diabetic polyneuropathy; Z79.4 Long term (current) use of insulin; R60.0 Localized edema
CPT/HCPCS: 11042

== ENCOUNTER 2021-06-13 13:00 | Outpatient (RCR) | payer MEDICARE, MEDICAID, SELFPAY ==
[2021-05-23 00:27] VITALS: BP 156/146; PULSE 68; RESP 20; TEMP 36.7; BMI 48.5
[2021-05-30 13:00] VITALS: BP 146/76; PULSE 99; RESP 18; TEMP 35.7; BMI 48.5
--- NOTE | 2021-05-30 13:47 | PCM.WC.PN ---
History of Present Illness Date of Service: 05/30/21 Chief Complaint: Diabetic left foot ulceration, [place] Grade 3 right leg ulcer cluster History of Wound: This 66-year-old male with multiple comorbidities was seen today for left foot ulcer that is very chronic. He was also seen for right leg ulcer. He denies diarrhea, fever, chill, nausea, vomiting. He denies redness or odor. He denies calf pain. He has debility and difficulty walking. He was trying to get approved for an electric wheelchair in which he was successful. This is supposed to arrive in 5 weeks. He continues to struggle with offloading. He reports some extra moisture with changing the right leg dressing. Progress of Wound: Improving right leg Stable left foot Objective Data Objective Data Vital Signs: Vital Signs Temp Pulse Resp BP 96.2 F L 99 18 146/76 H 05/30/21 13:00 05/30/21 13:00 05/30/21 13:00 05/30/21 13:00 Weight: 147.418 kg Body Mass Index (BMI) 48.5 Physical Exam Extremity Extremity Narrative: No calf tenderness Diminished pulses Left transmetatarsal amputation Muscle wasting noted Skin Skin Narrative: no purulence, no streaking, no odor, no infection. Bilateral lower extremity skin is atrophic and hairless. Right leg ulcer has healthy granular base with peripheral epithelialization the left plantar foot ulcer has improvement in healthy granular base tissue without devitalized central location. moderate callous noted left foot. The proximal skin discontinuities of the right leg cluster healed with epithelialization and dry skin. The distal aspect of the cluster has granular base without maceration, necrosis or infection. Neuro Neuro Narrative: lack of normal epicritic sensation via light touch is consistent with neuropathy status Debridement Note Debridement Note Wound debrided: Right leg cluster left foot Wound Grade/Stage: 1 Type of Debridement: Excisional debridement Anesthesia Used: 4% Lidocaine Solution Depth: in the subcutaneous layer Percentage of wound debrided: 100 (Left foot) and - (25% right leg cluster) Instrument Used: #15 blade Tissue Removed: fibrous, devitalized subcutaneous, biofilm, slough Severity: Fat Layer Exposed Amount of bleeding with debridement: Mild Bleeding Controlled with: Pressure Patient tolerated procedure: Patient tolerated procedure well Post-Debridement Measurements and Additional Note: Post-Debridement Measurements/Treatment WC - Nurse 1 - General Ulcer Assessment Start: 05/30/21 13:00 Freq: Status: Active Protocol: [email or web address] Activity Type Activity Date Activity User E-Sign Co-Sign Detail Recorded Client Recorded Date Recorded By Document 05/30/21 13:00 [employer] 05/30/21 13:14 [place] 05/30/21 13:00 - Today's Visit Information Type of service Follow-up Visit (Physician/FIELD CONTACT TECHNICIAN ) Arrival Mode Ambulatory Patient Identification Verified (Name & Yes ) Patient Requires Transmission-Based No Precautions Safety Precautions NA Height and Weight Body Mass Index (BMI) 48.5 BMI Classification Obese Vital Signs Temperature (97.8 F-99.1 F) 96.2 F L Temperature Source Temporal Pulse Rate (60-100) 99 Pulse Location Monitor Respiratory Rate (12-18) 18 Respiratory rate source Observation Blood Pressure (90/60-120/80) 146/76 H Blood Pressure Mean (mm Hg) 99 Source Monitor Position Semi-Fowlers Blood Pressure Location Left Arm History Since Last Visit- (Skip if this is Patient's initial visit) Have you changed medications since your No last visit? Any new allergies or adverse reactions No Had a fall/change in ADL's that may No increase risk of falls Signs or symptoms of abuse and/or No neglect since last visit Have you been in the hospital since your No last visit? Has dressing in place as prescribed Yes Has compression in place as prescribed No Has offloadiing in place as prescribed No Experienced any changes in pain level or No management Pain Scale: 0-10 Numeric Is Patient Pain Free? Yes - Nurse 1 - General Ulcer Measurement Start: 05/30/21 13:00 Freq: Status: Active Protocol: Activity Type Activity Date Activity User E-Sign Co-Sign Detail Recorded Client Recorded Date Recorded By Document 05/30/21 13:00 [employer] 05/30/21 13:14 [place] 05/30/21 13:00 Wound Center Nurse 1 #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 -Combined with other wound No -Current Size (cm) - Length 21 -Current Size (cm) - Width 6 -Current Size (cm) - Depth 0.1 -Total Square Cm 126 -Tunneling No -Undermining/Tunneling No -Circular Undermining No -Exudate Amt Medium -Exudate Type Serosanguineous -Wound Margin Distinct, Outline Attached -Granulation Amt Medium (34-66%) -Granulation Quality [place] -Slough/Fibrin Yes -Necrosis Amt Small (1-33%) -Necrotic Tissue Type Adherent Slough -Structure Exposed N/A -Texture (Maria M-wound Skin Appearance) Assessed -Moisture (Maria M-wound Skin Appearance) Assessed -Color (Maria M-wound Skin Appearance) Assessed -Tenderness on Palpation (Maria M-wound No Skin Appearance) -Ulcer Cleansing Wound Cleanser -Foul Odor after Cleansing No -Anesthetic Used 5% Lidocaine Gel #13 LEFT MEDIAL PLANTAR -Combined with other wound No -Current Size (cm) - Length 2.5 -Current Size (cm) - Width 0.3 -Current Size (cm) - Depth 0.7 -Total Square Cm 0.75 -Tunneling No -Undermining/Tunneling No -Circular Undermining No -Exudate Amt Medium -Exudate Type Serosanguineous -Wound Margin Distinct, Outline Attached -Granulation Amt Medium (34-66%) -Granulation Quality [place] -Slough/Fibrin Yes -Necrosis Amt Small (1-33%) -Necrotic Tissue Type Adherent Slough -Structure Exposed N/A -Texture (Maria M-wound Skin Appearance) Assessed -Moisture (Maria M-wound Skin Appearance) Assessed -Color (Mariam -wound Skin Appearance) Assessed -Temperature (Maria M-wound Skin No Abnormality Appearance) (Pt Warm) -Tenderness on Palpation (Maria M-wound No Skin Appearance) -Ulcer Cleansing Wound Cleanser -Foul Odor after Cleansing No -Anesthetic Used 5% Lidocaine Gel Lower Limb Edema Present Yes Right Calf (cm) 44 Right Ankle (cm) 25 Left Calf (cm) 44.5 Left Ankle (cm) 27 - Nurse 2 - General Ulcer CM Notes Start: 05/30/21 13:00 Freq: Status: Active Protocol: Activity Type Activity Date Activity User E-Sign Co-Sign Detail Recorded Client Recorded Date Recorded By Document 05/30/21 13:24 CASS[facility] [id number] 05/30/21 13:31 CASSY 05/30/21 13:24 Wound Center Nurse 2 #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 -Time 13:25 -Correct Patient Yes -Correct Side, Site, Position Yes -Correct Procedure Yes -Procedure Performed Yes -Type of Procedure Debridement -Clinical Debridement Subcutaneous -Tissue Removed Subcutaneous -Post Debridement (cm) - Length 4.5 -Post Debridement (cm) - Width 5 -Post Debridement (cm) - Depth 0.1 -Total Square (Post) (cm) 22.5 -Area of Debridement (cm) - Length 4.5 -Area of Debridement (cm) - Width 5 -Total Square (Area) (cm) 22.5 -Tunneling No -Undermining/Tunneling No -Circular Undermining No -Wound/Ulcer Outcome Not Healed -Ulcer Cleansing Rinsed/ Irrigated with Saline -Foul Odor after Cleansing No -Bioengineered Tissue No -Bleeding Controlled with Pressure -Offloading Yes -Type of Offloading Surgical Shoe -Treatment Response Procedure Tolerated Well -Debridement - Subq, 1st 20sq cm Yes -Debridement, SubQ, ea addt'l 20sq cm 1 or part thereof #13 LEFT MEDIAL PLANTAR -Time 13:25 -Correct Patient Yes -Correct Side, Site, Position Yes -Correct Procedure Yes -Procedure Performed Yes -Type of Procedure Debridement -Clinical Debridement Subcutaneous -Tissue Removed Subcutaneous -Post Debridement (cm) - Length 2.8 -Post Debridement (cm) - Width 3 -Post Debridement (cm) - Depth 0.4 -Total Square (Post) (cm) 8.4 -Area of Debridement (cm) - Length 2.8 -Area of Debridement (cm) - Width 3 -Total Square (Area) (cm) 8.4 -Tunneling No -Undermining/Tunneling No -Circular Undermining No -Wound/Ulcer Outcome Not Healed -Ulcer Cleansing Rinsed/ Irrigated with Saline -Foul Odor after Cleansing No -Bioengineered Tissue No -Bleeding Controlled with Pressure -Offloading Yes -Type of Offloading Camwalker -Treatment Response Procedure Tolerated Well -Debridement - Subq, 1st 20sq cm No Pain Scale: 0-10 Numeric Is Patient Pain Free? 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 Subcutaneous excisional debridement was performed as noted in the clinical panel to the left foot and the right leg cluster. Edema noted and has been addressed. To elevate and reduce salt intake. To continue with Tubigrip compression garments. To change right leg with Aquacel Ag daily to help promote granulation tissue and reduce excessive moisture. To change left foot ulcer daily with Aquacel Ag also. He completed a course of advanced wound healing product, epi fix to the left foot and notable improvement is seen. There are some devitalized tissue and I do not recommend application of cast. I would like him to wash this daily with soap and water the left foot. He is reassured no local signs of infection are noted however these are precautions to prevent further devitalization or bacterial colonization. He has a surgical offloading shoe at home. To offload left foot ulcer with Cam walker offloading Plastizote liner. The offloading pocket appears appropriately aligned to take pressure off of the ulcer site now. To use a walker until his wheelchair arrives. I discussed the need for serious offloading for limb salvage purposes. He has tried various shoes and walking boots. He has struggled with the use of such as a walker of a knee roller and has impaired gait. An electric power wheelchair (extra width-heavy duty) is also an option and at this time I recommend this. The CPT code for this device is K0807. This is medically necessary due to his bilateral lower extremity non weightbearing status, he lives alone and does not have assistance, he is a fall risk, and prolonged delayed wound healing is limb and life threatening. Updated prescription was provided again at previous visit. He is now better communicating this plan with his insurance company and has also located a durable medical insurance claims specialist location to proceed forward with this service. The request has been reviewed by ravi and has been assigned a pending reference number #[id number]. Per the patient, this was recently approved he was advised to proceed forward with getting the device to ensure he is able to offload. Anticipated arrival time is five weeks. He also recently installed a ramp at his home to accommodate home entry. His noninvasive vascular studies were reviewed from 05-04-2020 which were normal and intervention was previously not recommended. Urine he had bilateral arterial duplex and was advised to follow-up 1 year for updated exam. I reviewed Dr. Bonilla's note from June 14, 2020. To continue to work on decreasing glucose levels. He has a history of hyperglycemia. His last A1c was 8.8% in October 2020. To continue follow-up with primary care physician. To continue to follow-up with nutritional services. To continue to follow-up as advised. He is currently making adjustments with his nutritional habits. He also follows up with manager of clinical, Dr. Arteaga, who is working with him to reduce his hemoglobin A1c with medication and behavioral changes. He started a new medication within the past few weeks to better control his glucose levels he reports his home glucose levels have been decreasing. Smoking cessation was discussed in detail and he was advised on the healing impairment associated with this. To continue with his smoking cessation program. He denies current tobacco use. I also recommend discontinuation of nicotine products for this also contributes to small vessel contraction. The following options exist: Proceeding with a palliative wound care plan which he follows up every 2 to 4 weeks and the goal is to keep the ulcers noninfected and stable, below-knee amputation, revision transmetatarsal amputation with rotational skin flap. Prognosis is guarded with ongoing glucose elevation and inability to comply with nonweightbearing standards. He is hopeful that wheelchair with aid offloading goals. I answered all of his questions today. To return to clinic in 2 weeks with physician, or call sooner if questions, concerns, or progressive worsening. Note: [employer] speech recognition thumb sewer software was used to create portions of this document. Sound-alike and misspelled words, as well as other thumb sewer errors may be contained in the documentation.
[2021-06-13 13:06] VITALS: BP 139/68; PULSE 89; RESP 22; TEMP 35.7; BMI 48.5
--- NOTE | 2021-06-13 20:07 | PN.PCM_ITS ---
History of Present Illness Date of Service: 06/13/21 Chief Complaint: Diabetic left foot ulceration, [place] Grade 3 right leg ulcer cluster History of Wound: This 66-year-old male with multiple comorbidities was seen today for left foot ulcer that is very chronic. He was also seen for right leg ulcer. He denies diarrhea, fever, chill, nausea, vomiting. He denies redness or odor. He denies calf pain. He has debility and difficulty walking. He was trying to get approved for an electric wheelchair in which he was successful. This is supposed to arrive in 4 weeks. He continues to struggle with offloading. Progress of Wound: stable right leg Stable left foot Objective Data Objective Data Vital Signs: Vital Signs Temp Pulse Resp BP 96.2 F L 89 22 H 139/68 H 06/13/21 13:06 06/13/21 13:06 06/13/21 13:06 06/13/21 13:06 Weight: 147.418 kg Body Mass Index (BMI) 48.5 Physical Exam Extremity Extremity Narrative: No calf tenderness Diminished pulses Left transmetatarsal amputation Muscle wasting noted Skin Skin Narrative: no purulence, no streaking, no odor, no infection. Bilateral lower extremity skin is atrophic and hairless. Right leg ulcer has healthy granular base with peripheral epithelialization the left plantar foot ulcer has improvement in healthy granular base tissue without devitalized central location. moderate callous noted left foot. The proximal skin discontinuities of the right leg cluster reopened and are suprficial in nature and with granular non infected base. The distal aspect of the cluster has granular base without maceration, necrosis or infection. Neuro Neuro Narrative: lack of normal epicritic sensation via light touch is consistent with neuropathy status Debridement Note Debridement Note Wound debrided: right leg cluster, left foot Wound Grade/Stage: 1 Type of Debridement: Excisional debridement Anesthesia Used: 4% Lidocaine Solution Depth: in the subcutaneous layer Percentage of wound debrided: 100 (left ) Instrument Used: #15 blade Tissue Removed: fibrous, devitalized subcutaneous, biofilm, slough Severity: Fat Layer Exposed Amount of bleeding with debridement: Mild Bleeding Controlled with: Pressure Patient tolerated procedure: Patient tolerated procedure well Post-Debridement Measurements and Additional Note: Post-Debridement Measurements/Treatment WC - Nurse 1 - General Ulcer Assessment Start: 05/30/21 13:00 Freq: Status: Active Protocol: WC.LOWEXT Activity Type Activity Date Activity User E-Sign Co-Sign Detail Recorded Client Recorded Date Recorded By Document 05/30/21 13:00 AK [email or web address] 05/30/21 13:14 AK Document 06/13/21 13:06 DL [id number] 06/13/21 13:14 DL 05/30/21 06/13/21 13:00 13:06 - Today's Visit Information Type of service Follow-up Visit Follow-up Visit (Physician/[facility] (Physician/[facility] ) ) Arrival Mode Ambulatory Ambulatory, Walker Transfer Assistance None Patient Identification Verified (Name & Yes Yes ) Patient Requires Transmission-Based No No Precautions Safety Precautions NA Finger Stick Blood Sugar(mg/dl) (if 168 indicated): Blood Sugar Stated by Patient Height and Weight Body Mass Index (BMI) 48.5 48.5 BMI Classification Obese Obese Vital Signs Temperature (97.8 F-99.1 F) 96.2 F L 96.2 F L Temperature Source Temporal Temporal Pulse Rate (60-100) 99 89 Pulse Location Monitor Monitor Respiratory Rate (12-18) 18 22 H Respiratory rate source Observation Observation Blood Pressure (90/60-120/80) 146/76 H 139/68 H Blood Pressure Mean (mm Hg) 99 91 Source Monitor Monitor Position Semi-Fowlers Blood Pressure Location Left Arm History Since Last Visit- (Skip if this is Patient's initial visit) Have you changed medications since your No No last visit? Any new allergies or adverse reactions No No Had a fall/change in ADL's that may No No increase risk of falls Signs or symptoms of abuse and/or No No neglect since last visit Have you been in the hospital since your No No last visit? Has dressing in place as prescribed Yes Yes Has compression in place as prescribed No Yes Has offloadiing in place as prescribed No Yes Experienced any changes in pain level or No No management Pain Scale: 0-10 Numeric Is Patient Pain Free? Yes Yes - Nurse 1 - General Ulcer Measurement Start: 05/30/21 13:00 Freq: Status: Active Protocol: Activity Type Activity Date Activity User E-Sign Co-Sign Detail Recorded Client Recorded Date Recorded By Document 05/30/21 13:00 [employer] 05/30/21 13:14 AK Document 06/13/21 13:06 DL [id number] 06/13/21 13:14 DL 05/30/21 06/13/21 13:00 13:06 Wound Center Nurse 1 #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 -Combined with other wound No -Current Size (cm) - Length 21 20.5 -Current Size (cm) - Width 6 7.4 -Current Size (cm) - Depth 0.1 0.2 -Total Square Cm 126 151.70 -Photo Taken No -Tunneling No -Undermining/Tunneling No -Circular Undermining No -Exudate Amt Medium Small -Exudate Type Serosanguineous Serosanguineous -Wound Margin Distinct, Indistinct, Non Outline -Visible Attached -Granulation Amt Medium (34-66%) Large (67-100%) -Granulation Quality White Signal Red -Slough/Fibrin Yes -Necrosis Amt Small (1-33%) Small (1-33%) -Necrotic Tissue Type Adherent Slough Adherent Slough -Structure Exposed N/A N/A -Texture (Maria M-wound Skin Appearance) Assessed No Abnormality -Moisture (Maria M-wound Skin Appearance) Assessed No Abnormality -Color (Maria M-wound Skin Appearance) Assessed Hemosiderin Staining -Temperature (Maria M-wound Skin No Abnormality Appearance) (Pt Warm) -Tenderness on Palpation (Maria M-wound No No Skin Appearance) -Ulcer Cleansing Wound Cleanser Wound Cleanser -Foul Odor after Cleansing No No -Anesthetic Used 5% Lidocaine 4% Lidocaine Gel Solution #13 LEFT MEDIAL PLANTAR -Combined with other wound No -Current Size (cm) - Length 2.5 2.5 -Current Size (cm) - Width 0.3 2.6 -Current Size (cm) - Depth 0.7 0.5 -Total Square Cm 0.75 6.50 -Photo Taken No -Tunneling No -Undermining/Tunneling No -Circular Undermining No -Exudate Amt Medium Medium -Exudate Type Serosanguineous Serosanguineous -Wound Margin Distinct, Thickened Outline Attached -Granulation Amt Medium (34-66%) Large (67-100%) -Granulation Quality White Signal Red -Slough/Fibrin Yes -Necrosis Amt Small (1-33%) Small (1-33%) -Necrotic Tissue Type Adherent Slough Adherent Slough -Structure Exposed N/A Fat Layer Exposed -Texture (Maria M-wound Skin Appearance) Assessed Callus -Moisture (Maria M-wound Skin Appearance) Assessed Dry/Scaly -Color (Maria M-wound Skin Appearance) Assessed Hemosiderin Staining -Temperature (Maria M-wound Skin No Abnormality No Abnormality Appearance) (Pt Warm) (Pt Warm) -Tenderness on Palpation (Maria M-wound No No Skin Appearance) -Ulcer Cleansing Wound Cleanser Wound Cleanser -Foul Odor after Cleansing No No -Anesthetic Used 5% Lidocaine 4% Lidocaine Gel Solution Lower Limb Edema Present Yes Right Calf (cm) 44 44.4 Right Ankle (cm) 25 25.4 Left Calf (cm) 44.5 46.3 Left Ankle (cm) 27 28.6 WC - Nurse 2 - General Ulcer CM Notes Start: 05/30/21 13:00 Freq: Status: Active Protocol: Activity Type Activity Date Activity User E-Sign Co-Sign Detail Recorded Client Recorded Date Recorded By Document 05/30/21 13:24 [id number] 05/30/21 13:31 JF Document 06/13/21 13:22 JF [id number] 06/13/21 13:31 05/30/21 06/13/21 13:24 13:22 Wound Center Nurse 2 #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 -Time 13:25 13:24 -Correct Patient Yes Yes -Correct Side, Site, Position Yes Yes -Correct Procedure Yes Yes -Procedure Performed Yes Yes -Type of Procedure Debridement Debridement -Clinical Debridement Subcutaneous Subcutaneous -Tissue Removed Subcutaneous Subcutaneous -Post Debridement (cm) - Length 4.5 3.4 -Post Debridement (cm) - Width 5 4.5 -Post Debridement (cm) - Depth 0.1 0.1 -Total Square (Post) (cm) 22.5 15.30 -Area of Debridement (cm) - Length 4.5 3.4 -Area of Debridement (cm) - Width 5 4.5 -Total Square (Area) (cm) 22.5 15.30 -Tunneling No No -Undermining/Tunneling No No -Circular Undermining No No -Wound/Ulcer Outcome Not Healed Not Healed -Ulcer Cleansing Rinsed/ Rinsed/ Irrigated with Irrigated with Saline Saline -Foul Odor after Cleansing No No -Bioengineered Tissue No No -Bleeding Controlled with Pressure Pressure -Offloading Yes No -Type of Offloading Surgical Shoe -Treatment Response Procedure Procedure Tolerated Well Tolerated Well -Debridement - Subq, 1st 20sq cm Yes No -Debridement, SubQ, ea addt'l 20sq cm 1 or part thereof #13 LEFT MEDIAL PLANTAR -Time 13:25 13:24 -Correct Patient Yes Yes -Correct Side, Site, Position Yes Yes -Correct Procedure Yes Yes -Procedure Performed Yes Yes -Type of Procedure Debridement Debridement -Clinical Debridement Subcutaneous Subcutaneous -Tissue Removed Subcutaneous Subcutaneous -Post Debridement (cm) - Length 2.8 2.6 -Post Debridement (cm) - Width 3 2.6 -Post Debridement (cm) - Depth 0.4 0.5 -Total Square (Post) (cm) 8.4 6.76 -Area of Debridement (cm) - Length 2.8 2.6 -Area of Debridement (cm) - Width 3 2.6 -Total Square (Area) (cm) 8.4 6.76 -Tunneling No No -Undermining/Tunneling No No -Circular Undermining No No -Wound/Ulcer Outcome Not Healed Not Healed -Ulcer Cleansing Rinsed/ Rinsed/ Irrigated with Irrigated with Saline Saline -Foul Odor after Cleansing No No -Bioengineered Tissue No No -Bleeding Controlled with Pressure Pressure -Offloading Yes No -Type of Offloading Camwalker -Treatment Response Procedure Procedure Tolerated Well Tolerated Well -Debridement - Subq, 1st 20sq cm No Yes -Debridement, SubQ, ea addt'l 20sq cm 1 or part thereof Pain Scale: 0-10 Numeric Is Patient Pain Free? Yes Yes WC - Nurse 3 - General Ulcer D/C NN Start: 05/30/21 13:00 Freq: Status: Active Protocol: Activity Type Activity Date Activity User E-Sign Co-Sign Detail Recorded Client Recorded Date Recorded By Document 05/30/21 13:53 AK Desktop 05/30/21 13:54 ND Document 06/13/21 13:42 [facility] [id number] 06/13/21 13:43 [facility] 05/30/21 06/13/21 13:53 13:42 Wound Care Nurse 3 #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 -Ulcer Cleansing Rinsed/ Rinsed/ Irrigated with Irrigated with Saline Saline -Foul Odor after Cleansing No No -Negative Pressure Wound Therapy N/A -Primary Dressing Applied Aquacel Extra C Hydrogel ($), NonAdherent Contact Layer -Primary Dressing Covered/Secured with Dry Gauze & Dry Gauze & Roll Gauze, Roll Gauze, Secured with Secured with Tape Tape,Other -Other Covering drsg per rb rn -Aquacel Extra 1 #13 LEFT MEDIAL PLANTAR -Ulcer Cleansing Rinsed/ Rinsed/ Irrigated with Irrigated with Saline Saline -Foul Odor after Cleansing No No -Negative Pressure Wound Therapy N/A -Primary Dressing Applied Other -Other Dressing wet to dry here tee Platt at home -Primary Dressing Covered/Secured with Dry Gauze & Dry Gauze & Roll Gauze, Roll Gauze, Secured with Secured with Tape Tape,Other -Other Covering drsg per rb rn Right -Tubular Bandage Single Layer -Size of Tubigrip Used Size E -Size E ($) 1 Left -Tubular Bandage Single Layer -Size of Tubigrip Used Size E -Size E ($) 1 Treatment Response Procedure Tolerated Well Pain Scale: 0-10 Numeric Is Patient Pain Free? 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: CODE(S): L97.912 - Non-pressure chronic ulcer of unspecified part of right lower leg with fat layer exposed (2) Non-pressure chronic ulcer of other part of left foot with fat layer exposed: CODE(S): L97.522 - Non-pressure chronic ulcer of other part of left foot with fat layer exposed (3) Type 2 diabetes mellitus with diabetic polyneuropathy: CODE(S): E11.42 - Type 2 diabetes mellitus with diabetic polyneuropathy QUALIFIERS: Diabetes mellitus terminal computer operator insulin use: without terminal computer operator use Qualified Code(s): E11.42 - Type 2 diabetes mellitus with diabetic polyneuropathy (4) Debility: CODE(S): R53.81 - Other malaise (5) Localized edema: CODE(S): R60.0 - Localized edema PLAN: I reviewed and discussed his case. Subcutaneous excisional debridement was performed as noted in the clinical panel to the left foot and the right leg cluster. Edema noted and has been addressed. To elevate and reduce salt intake. To continue with Tubigrip compression garments. To change right leg with hydrogel daily to help promote granulation tissue and reduce excessive moisture. To change left foot ulcer daily with Aquacel Ag also. He completed a course of advanced wound healing product, epi fix to the left foot and notable improvement is seen. There are some devitalized tissue and I do not recommend application of cast. I would like him to wash this daily with soap and water the left foot. He is reassured no local signs of infection are noted however these are precautions to prevent further devitalization or bacterial colonization. He has a surgical offloading shoe at home. To offload left foot ulcer with Cam walker offloading Plastizote liner. The offloading pocket appears appropriately aligned to take pressure off of the ulcer site now. To use a walker until his wheelchair arrives. I discussed the need for serious offloading for limb salvage purposes. He has tried various shoes and walking boots. He has struggled with the use of such as a walker of a knee roller and has impaired gait. An electric power wheelchair (extra width-heavy duty) is also an option and at this time I recommend this. The CPT code for this device is K0807. This is medically necessary due to his bilateral lower extremity non weightbearing status, he lives alone and does not have assistance, he is a fall risk, and prolonged delayed wound healing is limb and life threatening. Updated prescription was provided again at previous visit. He is now better communicating this plan with his insurance company and has also located a durable medical cash poster location to proceed forward with this service. The request has been reviewed by ravi and has been assigned a pending reference number #[id number]. Per the patient, this was recently approved he was advised to proceed forward with getting the device to ensure he is able to offload. Anticipated arrival time is four weeks. He also recently installed a ramp at his home to accommodate home entry. His noninvasive vascular studies were reviewed from 05-04-2020 which were normal and intervention was previously not recommended. Urine he had bilateral arterial duplex and was advised to follow-up 1 year for updated exam. I reviewed Dr. Bonilla's note from June 14, 2020. To continue to work on decreasing glucose levels. He has a history of hyperglycemia. His last A1c was 8.8% in October 2020. To continue follow-up with primary care physician. To continue to follow-up with nutritional services. To continue to follow-up as advised. He is currently making adjustments with his nutritional habits. He also follows up with blood bank attendant, Dr. Arteaga, who is working with him to reduce his hemoglobin A1c with medication and behavioral changes. He started a new medication within the past few weeks to better control his glucose levels he reports his home glucose levels have been decreasing. Smoking cessation was discussed in detail and he was advised on the healing impairment associated with this. To continue with his smoking cessation program. He denies current tobacco use. I also recommend discontinuation of nicotine products for this also contributes to small vessel contraction. The following options exist: Proceeding with a palliative wound care plan which he follows up every 2 to 4 weeks and the goal is to keep the ulcers noninfected and stable, below-knee amputation, revision transmetatarsal amputation with rotational skin flap. Prognosis is guarded with ongoing glucose elevation and inability to comply with nonweightbearing standards. He is hopeful that wheelchair with aid offloading goals. I answered all of his questions today. To return to clinic in 2 weeks with physician, or call sooner if questions, concerns, or progressive worsening. Note: [employer] speech recognition supervisor software was used to create portions of this document. Sound-alike and misspelled words, as well as other supervisor errors may be contained in the documentation.
== END 2021-06-21 23:59 ==
LOC: WC 13:00
PROVIDERS: PCP Family Medicine Geriatric Medicine; Referring Provider Podiatrist; Visit Provider Podiatrist
DX: E11.621 Type 2 diabetes mellitus with foot ulcer (principal); L97.912 Non-pressure chronic ulcer of unspecified part of right lower leg with fat layer exposed; L97.522 Non-pressure chronic ulcer of other part of left foot with fat layer exposed; E11.42 Type 2 diabetes mellitus with diabetic polyneuropathy; R53.81 Other malaise; R60.0 Localized edema; Z79.4 Long term (current) use of insulin
CPT/HCPCS: 11042; 11045

== ENCOUNTER 2021-07-11 13:15 | Outpatient (RCR) | payer MEDICARE, MEDICAID, SELFPAY ==
[2021-06-22 00:21] VITALS: BP 139/68; PULSE 89; RESP 22; TEMP 35.7; BMI 48.5
[2021-06-27 13:10] VITALS: BP 149/78; PULSE 93; RESP 18; BMI 48.5
--- NOTE | 2021-06-27 13:35 | PN.PCM_ITS ---
History of Present Illness Date of Service: 06/27/21 Chief Complaint: Diabetic left foot ulceration, [place] Grade 3 right leg ulcer History of Wound: This 66-year-old male with multiple comorbidities was seen today for left foot ulcer that is very chronic. He was also seen for right leg ulcer. He denies diarrhea, fever, chill, nausea, vomiting. He denies redness or odor. He denies calf pain. He has debility and difficulty walking. He was trying to get approved for an electric wheelchair in which he was successful. However the parts are on back order and this is expected to arrive in 2021. Progress of Wound: Improving right leg Stable left foot Objective Data Objective Data Vital Signs: Vital Signs Temp Pulse Resp BP 96.2 F L 93 18 149/78 H 06/22/21 00:21 06/27/21 13:10 06/27/21 13:10 06/27/21 13:10 Oxygen Delivery Method Room Air Weight: 147.418 kg Body Mass Index (BMI) 48.5 Physical Exam Extremity Extremity Narrative: No calf tenderness Diminished pulses Left transmetatarsal amputation Muscle wasting noted Skin Skin Narrative: no purulence, no streaking, no odor, no infection. Bilateral lower extremity skin is atrophic and hairless. Right leg ulcer has healthy granular base with peripheral epithelialization the left plantar foot ulcer has improvement in healthy granular base tissue without devitalized central location. moderate callous noted left foot. No maceration, necrosis or infection. Right foot plantar medial first metatarsal head significant callus formation with fissuring and no ulcer Neuro Neuro Narrative: lack of normal epicritic sensation via light touch is consistent with neuropathy status Debridement Note Debridement Note Wound debrided: Right anterior mid leg, left plantar medial foot (stump site) Wound Grade/Stage: 1 Type of Debridement: Excisional debridement Anesthesia Used: 4% Lidocaine Solution Depth: in the subcutaneous layer Percentage of wound debrided: 100 Instrument Used: #15 blade and - ([employer] ultrasound debridement instrument) Tissue Removed: fibrous, devitalized subcutaneous, biofilm, slough Severity: Fat Layer Exposed Amount of bleeding with debridement: Mild Bleeding Controlled with: Pressure Patient tolerated procedure: Patient tolerated procedure well Post-Debridement Measurements and Additional Note: Post-Debridement Measurements/Treatment UZIEL - Nurse 1 - General Ulcer Assessment Start: 06/27/21 13:05 Freq: Status: Active Protocol: WC.LOWEXT Activity Type Activity Date Activity User E-Sign Co-Sign Detail Recorded Client Recorded Date Recorded By Document 06/27/21 13:10 [employer] 06/27/21 13:14 [place] 06/27/21 13:10 - Today's Visit Information Type of service Follow-up Visit (Physician/IMPORT DISPATCHER ) Arrival Mode Ambulatory Transfer Assistance None Patient Identification Verified (Name & Yes ) Patient Requires Transmission-Based No Precautions Height and Weight Body Mass Index (BMI) 48.5 BMI Classification Obese Vital Signs Pulse Rate (60-100) 93 Pulse Location Monitor Respiratory Rate (12-18) 18 Respiratory rate source Observation Oxygen Delivery Method Room Air Blood Pressure (90/60-120/80) 149/78 H Blood Pressure Mean (mm Hg) 101 Source Monitor Position Sitting Blood Pressure Location Left Arm History Since Last Visit- (Skip if this is Patient's initial visit) Have you changed medications since your No last visit? Any new allergies or adverse reactions No Had a fall/change in ADL's that may No increase risk of falls Signs or symptoms of abuse and/or No neglect since last visit Have you been in the hospital since your No last visit? Has dressing in place as prescribed No Has compression in place as prescribed No Has offloadiing in place as prescribed N/A Experienced any changes in pain level or No management Pain Scale: 0-10 Numeric Is Patient Pain Free? Yes - Nurse 1 - General Ulcer Measurement Start: 06/27/21 13:05 Freq: Status: Active Protocol: Activity Type Activity Date Activity User E-Sign Co-Sign Detail Recorded Client Recorded Date Recorded By Document 06/27/21 13:10 [employer] 06/27/21 13:14 [place] 06/27/21 13:10 Wound Center Nurse 1 #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 -Combined with other wound No -Current Size (cm) - Length 20.5 -Current Size (cm) - Width 7 -Current Size (cm) - Depth 0.1 -Total Square Cm 143.5 -Photo Taken No -Epithelialization None Present -Tunneling No -Undermining/Tunneling No -Circular Undermining No -Exudate Amt None Present -Wound Margin Distinct, Outline Attached -Granulation Amt None Present (0 %) -Slough/Fibrin Yes -Necrosis Amt Large (67-100%) -Necrotic Tissue Type Eschar -Texture (Maria M-wound Skin Appearance) Assessed, Scarring -Moisture (Maria M-wound Skin Appearance) Assessed -Color (Maria M-wound Skin Appearance) Assessed -Temperature (Maria M-wound Skin No Abnormality Appearance) (Pt Warm) -Tenderness on Palpation (Maria M-wound No Skin Appearance) -Ulcer Cleansing Rinsed/ Irrigated with Saline -Foul Odor after Cleansing No -Anesthetic Used 4% Lidocaine Solution #13 LEFT MEDIAL PLANTAR -Combined with other wound No -Current Size (cm) - Length 2.4 -Current Size (cm) - Width 2.4 -Current Size (cm) - Depth 0.2 -Total Square Cm 5.76 -Photo Taken No -Epithelialization None Present -Tunneling No -Undermining/Tunneling No -Circular Undermining No -Exudate Amt Medium -Exudate Type Serosanguineous -Wound Margin Distinct, Outline Attached -Granulation Amt Large (67-100%) -Granulation Quality Red -Slough/Fibrin Yes -Necrosis Amt Small (1-33%) -Necrotic Tissue Type Adherent Slough -Texture (Maria M-wound Skin Appearance) Assessed,Callus ,Scarring -Moisture (Maria M-wound Skin Appearance) Assessed,Dry/ Scaly -Color (Maria M-wound Skin Appearance) Assessed -Temperature (Maria M-wound Skin No Abnormality Appearance) (Pt Warm) -Tenderness on Palpation (Maria M-wound No Skin Appearance) -Ulcer Cleansing Rinsed/ Irrigated with Saline -Foul Odor after Cleansing No -Anesthetic Used 4% Lidocaine Solution Lower Limb Edema Present Yes Right Calf (cm) 44.5 Right Ankle (cm) 25.3 Left Calf (cm) 45.5 Left Ankle (cm) 26.4 WC - Nurse 2 - General Ulcer CM Notes Start: 06/27/21 13:05 Freq: Status: Active Protocol: Activity Type Activity Date Activity User E-Sign Co-Sign Detail Recorded Client Recorded Date Recorded By Document 06/27/21 13:31 [facility]ASS[facility] [id number] 06/27/21 13:35 CASS[facility] 06/27/21 13:31 Wound Center Nurse 2 #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 -Time 13:31 -Correct Patient Yes -Correct Side, Site, Position Yes -Correct Procedure Yes -Procedure Performed Yes -Type of Procedure Debridement -Clinical Debridement Subcutaneous -Tissue Removed Subcutaneous -Post Debridement (cm) - Length 0.6 -Post Debridement (cm) - Width 1.5 -Post Debridement (cm) - Depth 0.2 -Total Square (Post) (cm) 0.90 -Area of Debridement (cm) - Length 0.6 -Area of Debridement (cm) - Width 1.5 -Total Square (Area) (cm) 0.90 -Tunneling No -Undermining/Tunneling No -Circular Undermining No -Wound/Ulcer Outcome Not Healed -Ulcer Cleansing Rinsed/ Irrigated with Saline -Foul Odor after Cleansing No -Bioengineered Tissue No -Bleeding Controlled with Pressure -Offloading No -Treatment Response Procedure Tolerated Well -Debridement - Subq, 1st 20sq cm No #13 LEFT MEDIAL PLANTAR -Time 13:31 -Correct Patient Yes -Correct Side, Site, Position Yes -Correct Procedure Yes -Procedure Performed Yes -Type of Procedure Debridement -Clinical Debridement Subcutaneous -Tissue Removed Subcutaneous -Post Debridement (cm) - Length 2.5 -Post Debridement (cm) - Width 2.5 -Post Debridement (cm) - Depth 0.2 -Total Square (Post) (cm) 6.25 -Area of Debridement (cm) - Length 2.5 -Area of Debridement (cm) - Width 2.5 -Total Square (Area) (cm) 6.25 -Tunneling No -Undermining/Tunneling No -Circular Undermining No -Wound/Ulcer Outcome Not Healed -Ulcer Cleansing Rinsed/ Irrigated with Saline -Foul Odor after Cleansing No -Bioengineered Tissue No -Bleeding Controlled with Pressure -Offloading Yes -Type of Offloading Camwalker -Treatment Response Procedure Tolerated Well -Debridement - Subq, 1st 20sq cm Yes Pain Scale: 0-10 Numeric Is Patient Pain Free? 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: CODE(S): L97.912 - Non-pressure chronic ulcer of unspecified part of right lower leg with fat layer exposed (2) Non-pressure chronic ulcer of other part of left foot with fat layer exposed: CODE(S): L97.522 - Non-pressure chronic ulcer of other part of left foot with fat layer exposed (3) Type 2 diabetes mellitus with diabetic polyneuropathy: CODE(S): E11.42 - Type 2 diabetes mellitus with diabetic polyneuropathy QUALIFIERS: Diabetes mellitus custodial insulin use: without custodial use Qualified Code(s): E11.42 - Type 2 diabetes mellitus with diabetic polyneuropathy (4) Debility: CODE(S): R53.81 - Other malaise (5) Localized edema: CODE(S): R60.0 - Localized edema PLAN: I reviewed and discussed his case. Subcutaneous excisional debridement was performed as noted in the clinical panel to the left foot and the right leg cluster. Edema noted and has been addressed. To elevate and reduce salt intake. To continue with Tubigrip compression garments. To change right leg with hydrogel daily to help promote granulation tissue and reduce excessive moisture. To change left foot ulcer daily with Aquacel Ag also. He completed a course of advanced wound healing product, epi fix to the left foot and notable improvement is seen. There are some devitalized tissue and I do not recommend application of cast. I would like him to wash this daily with soap and water the left foot. He is reassured no local signs of infection are noted however these are precautions to prevent further devitalization or bacterial colonization. He has a surgical offloading shoe at home. To offload left foot ulcer with Cam walker offloading Plastizote liner. The offloading pocket appears appropriately aligned to take pressure off of the ulcer site now. To use a walker until his wheelchair arrives. I discussed the need for serious offloading for limb salvage purposes. He has tried various shoes and walking boots. He has struggled with the use of such as a walker of a knee roller and has impaired gait. An electric power wheelchair (extra width-heavy duty) is also an option and at this time I recommend this. The CPT code for this device is K0807. This is medically necessary due to his bilateral lower extremity non weightbearing status, he lives alone and does not have assistance, he is a fall risk, and prolonged delayed wound healing is limb and life threatening. Updated prescription was provided again at previous visit. He is now better communicating this plan with his insurance company and has also located a durable medical management trainer location to proceed forward with this service. The request has been reviewed by ravi and has been assigned a pending reference number #[id number]. Per the patient, this was recently approved he was advised to proceed forward with getting the device to ensure he is able to offload. Anticipated arrival time is four weeks. He also recently installed a ramp at his home to accommodate home entry. His noninvasive vascular studies were reviewed from 05-04-2020 which were normal and intervention was previously not recommended. Urine he had bilateral arterial duplex and was advised to follow-up 1 year for updated exam. I reviewed Dr. Bonilla's note from June 14, 2020. To continue to work on decreasing glucose levels. He has a history of hyperglycemia. His last A1c was 8.8% in October 2020. To continue follow-up with primary care physician. To continue to follow-up with nutritional services. To continue to follow-up as advised. He is currently making adjustments with his nutritional habits. He also follows up with ship's carpenter, Dr. Arteaga, who is working with him to reduce his hemoglobin A1c with medication and behavioral changes. He started a new medication within the past few weeks to better control his glucose levels he reports his home glucose levels have been decreasing. Smoking cessation was discussed in detail and he was advised on the healing impairment associated with this. To continue with his smoking cessation program. He denies current tobacco use. I also recommend discontinuation of nicotine products for this also contributes to small vessel contraction. The following options exist: Proceeding with a palliative wound care plan which he follows up every 2 to 4 weeks and the goal is to keep the ulcers noninfected and stable, below-knee amputation, revision transmetatarsal amputation with rotational skin flap. Prognosis is guarded with ongoing glucose elevation and inability to comply with nonweightbearing standards. He is hopeful that wheelchair with aid offloading goals. I answered all of his questions today. To return to clinic in 2 weeks with physician, or call sooner if questions, concerns, or progressive worsening. Note: [employer] speech recognition project surveyor software was used to create portions of this document. Sound-alike and misspelled words, as well as other project surveyor errors may be contained in the documentation.
[2021-07-11 13:21] VITALS: BP 96/56; PULSE 100; RESP 18; TEMP 36.6; BMI 48.5
--- NOTE | 2021-07-11 15:53 | PN.PCM_ITS ---
History of Present Illness Date of Service: 07/11/21 Chief Complaint: Diabetic left foot ulceration, [place] Grade 3 right leg ulcer History of Wound: This 66-year-old male with multiple comorbidities was seen today for left foot ulcer that is very chronic. He was also seen for right leg ulcer. He denies diarrhea, fever, chill, nausea, vomiting. He denies redness or odor. He denies calf pain. He has debility and difficulty walking. He was trying to get approved for an electric wheelchair in which he was successful. However the parts are on back order and this is expected to arrive in 2021. He denies injuries. He relates he eats 1-2 whole foods each day. Progress of Wound: Improving right leg Stable left foot Objective Data Objective Data Vital Signs: Vital Signs Temp Pulse Resp BP 98 F 100 18 96/56 L 07/11/21 13:21 07/11/21 13:21 07/11/21 13:21 07/11/21 13:21 Oxygen Delivery Method Room Air Weight: 147.418 kg Body Mass Index (BMI) 48.5 Physical Exam Extremity Extremity Narrative: No calf tenderness Diminished pulses Left transmetatarsal amputation Muscle wasting noted Skin Skin Narrative: no purulence, no streaking, no odor, no infection. Bilateral lower extremity skin is atrophic and hairless. Right leg ulcer has healthy granular base with peripheral epithelialization the left plantar foot ulcer has improvement in healthy granular base tissue without devitalized central location. No maceration, necrosis or infection. reduced ulcer depth noted Neuro Neuro Narrative: lack of normal epicritic sensation via light touch is consistent with neuropathy status Debridement Note Debridement Note Wound debrided: right leg, plantar medial left foot Wound Grade/Stage: 1 Type of Debridement: Excisional debridement Anesthesia Used: 4% Lidocaine Solution Depth: in the subcutaneous layer Percentage of wound debrided: 100 Instrument Used: #15 blade Tissue Removed: fibrous, devitalized subcutaneous, biofilm, slough Severity: Fat Layer Exposed Amount of bleeding with debridement: Mild Bleeding Controlled with: Pressure Patient tolerated procedure: Patient tolerated procedure well Post-Debridement Measurements and Additional Note: Post-Debridement Measurements/Treatment UZIEL - Nurse 1 - General Ulcer Assessment Start: 06/27/21 13:05 Freq: Status: Active Protocol: MARIA ESTHER Activity Type Activity Date Activity User E-Sign Co-Sign Detail Recorded Client Recorded Date Recorded By Document 06/27/21 13:10 AK Desktop 06/27/21 13:14 AK Document 07/11/21 13:21 RB [id number] 07/11/21 13:24 RB 06/27/21 07/11/21 13:10 13:21 - Today's Visit Information Type of service Follow-up Visit Follow-up Visit (Physician/EXTERMINATOR HELPER TERMITE (Physician/EXTERMINATOR HELPER TERMITE ) ) Arrival Mode Ambulatory Ambulatory, Walker Transfer Assistance None None Patient Identification Verified (Name & Yes Yes ) Patient Requires Transmission-Based No No Precautions Finger Stick Blood Sugar(mg/dl) (if 109 indicated): Blood Sugar Stated by Patient Height and Weight Body Mass Index (BMI) 48.5 48.5 BMI Classification Obese Obese Temperature (97.8 F-99.1 F) 98 F Temperature Source Temporal Vital Signs Pulse Rate (60-100) 93 100 Pulse Location Monitor Monitor Respiratory Rate (12-18) 18 18 Respiratory rate source Observation Observation Oxygen Delivery Method Room Air Blood Pressure (90/60-120/80) 149/78 H 96/56 L Blood Pressure Mean (mm Hg) 101 69 Source Monitor Monitor Position Sitting Sitting Blood Pressure Location Left Arm Left Arm History Since Last Visit- (Skip if this is Patient's initial visit) Have you changed medications since your No No last visit? Any new allergies or adverse reactions No No Had a fall/change in ADL's that may No No increase risk of falls Signs or symptoms of abuse and/or No No neglect since last visit Have you been in the hospital since your No No last visit? Has dressing in place as prescribed No Yes Has compression in place as prescribed No No Has offloadiing in place as prescribed N/A No Experienced any changes in pain level or No No management Left Footwear Surgical Shoe with pressure relief insole Right Footwear Regular Shoe Pain Scale: 0-10 Numeric Is Patient Pain Free? Yes Yes - Nurse 1 - General Ulcer Measurement Start: 06/27/21 13:05 Freq: Status: Active Protocol: Activity Type Activity Date Activity User E-Sign Co-Sign Detail Recorded Client Recorded Date Recorded By Document 06/27/21 13:10 AK Desktop 06/27/21 13:14 AK Document 07/11/21 13:21 RB [id number] 07/11/21 13:24 RB 06/27/21 07/11/21 13:10 13:21 Wound Center Nurse 1 #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 -Combined with other wound No No -Current Size (cm) - Length 20.5 10 -Current Size (cm) - Width 7 0.5 -Current Size (cm) - Depth 0.1 0.1 -Total Square Cm 143.5 5.0 -Photo Taken No -Epithelialization None Present -Tunneling No No -Undermining/Tunneling No No -Circular Undermining No No -Exudate Amt None Present Medium -Exudate Type Serosanguineous -Wound Margin Distinct, Distinct, Outline Outline Attached Attached -Granulation Amt None Present (0 Medium (34-66%) %) -Granulation Quality [place] -Slough/Fibrin Yes Yes -Necrosis Amt Large (67-100%) Small (1-33%) -Necrotic Tissue Type Eschar -Structure Exposed N/A -Texture (Maria M-wound Skin Appearance) Assessed, Assessed Scarring -Moisture (Maria M-wound Skin Appearance) Assessed Dry/Scaly -Color (Maria M-wound Skin Appearance) Assessed Assessed -Temperature (Maria M-wound Skin No Abnormality No Abnormality Appearance) (Pt Warm) (Pt Warm) -Tenderness on Palpation (Maria M-wound No No Skin Appearance) -Ulcer Cleansing Rinsed/ Wound Cleanser Irrigated with Saline -Foul Odor after Cleansing No No -Anesthetic Used 4% Lidocaine 4% Lidocaine Solution Solution #13 LEFT MEDIAL PLANTAR -Combined with other wound No No -Current Size (cm) - Length 2.4 2 -Current Size (cm) - Width 2.4 2.1 -Current Size (cm) - Depth 0.2 0.2 -Total Square Cm 5.76 4.2 -Photo Taken No -Epithelialization None Present -Tunneling No No -Undermining/Tunneling No No -Circular Undermining No No -Exudate Amt Medium Medium -Exudate Type Serosanguineous Serosanguineous -Wound Margin Distinct, Thickened & Outline Rolled Under Attached -Granulation Amt Large (67-100%) Medium (34-66%) -Granulation Quality Red Red -Slough/Fibrin Yes Yes -Necrosis Amt Small (1-33%) Small (1-33%) -Necrotic Tissue Type Adherent Slough Adherent Slough -Structure Exposed N/A -Texture (Maria M-wound Skin Appearance) Assessed,Callus Callus ,Scarring -Moisture (Maria M-wound Skin Appearance) Assessed,Dry/ Assessed Scaly -Color (Maria M-wound Skin Appearance) Assessed Assessed -Temperature (Maria M-wound Skin No Abnormality No Abnormality Appearance) (Pt Warm) (Pt Warm) -Tenderness on Palpation (Maria M-wound No No Skin Appearance) -Ulcer Cleansing Rinsed/ Wound Cleanser Irrigated with Saline -Foul Odor after Cleansing No No -Anesthetic Used 4% Lidocaine 4% Lidocaine Solution Solution Lower Limb Edema Present Yes Yes Right Calf (cm) 44.5 44.5 Right Ankle (cm) 25.3 25.2 Left Calf (cm) 45.5 45.5 Left Ankle (cm) 26.4 27 WC - Nurse 2 - General Ulcer CM Notes Start: 06/27/21 13:05 Freq: Status: Active Protocol: Activity Type Activity Date Activity User E-Sign Co-Sign Detail Recorded Client Recorded Date Recorded By Document 06/27/21 13:31 [id number] 06/27/21 13:35 Document 07/11/21 13:34 [id number] 07/11/21 13:38 06/27/21 07/11/21 13:31 13:34 Wound Center Nurse 2 #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 -Time 13:31 13:34 -Correct Patient Yes Yes -Correct Side, Site, Position Yes Yes -Correct Procedure Yes Yes -Procedure Performed Yes Yes -Type of Procedure Debridement Debridement -Clinical Debridement Subcutaneous Subcutaneous -Tissue Removed Subcutaneous Subcutaneous -Post Debridement (cm) - Length 0.6 5 -Post Debridement (cm) - Width 1.5 0.5 -Post Debridement (cm) - Depth 0.2 0.1 -Total Square (Post) (cm) 0.90 2.5 -Area of Debridement (cm) - Length 0.6 0.5 -Area of Debridement (cm) - Width 1.5 0.5 -Total Square (Area) (cm) 0.90 0.25 -Tunneling No -Undermining/Tunneling No No -Circular Undermining No No -Wound/Ulcer Outcome Not Healed Not Healed -Ulcer Cleansing Rinsed/ Rinsed/ Irrigated with Irrigated with Saline Saline -Foul Odor after Cleansing No No -Bioengineered Tissue No No -Bleeding Controlled with Pressure Pressure -Offloading No No -Treatment Response Procedure Procedure Tolerated Well Tolerated Well -Debridement - Subq, 1st 20sq cm No No #13 LEFT MEDIAL PLANTAR -Time 13:31 13:35 -Correct Patient Yes Yes -Correct Side, Site, Position Yes Yes -Correct Procedure Yes Yes -Procedure Performed Yes Yes -Type of Procedure Debridement Debridement -Clinical Debridement Subcutaneous Subcutaneous -Tissue Removed Subcutaneous Subcutaneous -Post Debridement (cm) - Length 2.5 2 -Post Debridement (cm) - Width 2.5 2.2 -Post Debridement (cm) - Depth 0.2 0.3 -Total Square (Post) (cm) 6.25 4.4 -Area of Debridement (cm) - Length 2.5 2 -Area of Debridement (cm) - Width 2.5 2.2 -Total Square (Area) (cm) 6.25 4.4 -Tunneling No No -Undermining/Tunneling No No -Circular Undermining No No -Wound/Ulcer Outcome Not Healed Not Healed -Ulcer Cleansing Rinsed/ Rinsed/ Irrigated with Irrigated with Saline Saline -Foul Odor after Cleansing No No -Bioengineered Tissue No No -Bleeding Controlled with Pressure Pressure -Offloading Yes Yes -Type of Offloading Camwalker Camwalker -Treatment Response Procedure Procedure Tolerated Well Tolerated Well -Debridement - Subq, 1st 20sq cm Yes Yes Pain Scale: 0-10 Numeric Is Patient Pain Free? Yes Yes WC - Nurse 3 - General Ulcer D/C NN Start: 06/27/21 13:05 Freq: Status: Active Protocol: Activity Type Activity Date Activity User E-Sign Co-Sign Detail Recorded Client Recorded Date Recorded By Document 06/27/21 13:58 RB Desktop 06/27/21 13:59 RB Document 07/11/21 13:45 RB [id number] 07/11/21 13:47 RB 06/27/21 07/11/21 13:58 13:45 Wound Care Nurse 3 #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 -Ulcer Cleansing Rinsed/ Rinsed/ Irrigated with Irrigated with Saline Saline -Primary Dressing Applied NonAdherent C Hydrogel ($), Contact Layer NonAdherent Contact Layer -Other Dressing hydrogel -Primary Dressing Covered/Secured with Dry Gauze,Dry Dry Gauze,Dry Gauze & Roll Gauze & Roll Gauze,Secured Gauze,Secured with Tape with Tape #13 LEFT MEDIAL PLANTAR -Ulcer Cleansing Rinsed/ Rinsed/ Irrigated with Irrigated with Saline Saline -Primary Dressing Applied Aquacel AG 2x2 Aquacel AG 4x4 -Other Dressing abd -Primary Dressing Covered/Secured with Dry Gauze,Dry Dry Gauze Gauze & Roll Gauze,Secured with Tape -Aquacel AG 4x4 1 -Aquacel AG 2x2 1 Right -Tubular Bandage Single Layer -Size of Tubigrip Used Size E Size F -Size E ($) 1 -Size F ($) 1 Left -Tubular Bandage Single Layer -Size of Tubigrip Used Size E -Size E ($) 1 -Size F ($) 1 Treatment Response Procedure Procedure Tolerated Well Tolerated Well Pain Scale: 0-10 Numeric Is Patient Pain Free? 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: CODE(S): L97.912 - Non-pressure chronic ulcer of unspecified part of right lower leg with fat layer exposed (2) Non-pressure chronic ulcer of other part of left foot with fat layer exposed: CODE(S): L97.522 - Non-pressure chronic ulcer of other part of left foot with fat layer exposed (3) Type 2 diabetes mellitus with diabetic polyneuropathy: CODE(S): E11.42 - Type 2 diabetes mellitus with diabetic polyneuropathy QUALIFIERS: Diabetes mellitus shelter insulin use: without oil heaterman use Qualified Code(s): E11.42 - Type 2 diabetes mellitus with diabetic polyneuropathy (4) Debility: CODE(S): R53.81 - Other malaise (5) Localized edema: CODE(S): R60.0 - Localized edema PLAN: I reviewed and discussed his case. Subcutaneous excisional debridement was performed as noted in the clinical panel to the left foot and the right leg cluster. Edema noted and has been addressed. To elevate and reduce salt intake. To continue with Tubigrip compression garments. To change right leg with hydrogel daily to help promote granulation tissue and reduce excessive moisture. To change left foot ulcer daily with Aquacel Ag also. He completed a course of advanced wound healing product, epi fix to the left foot and notable improvement is seen. There are some devitalized tissue and I do not recommend application of cast. I would like him to wash this daily with soap and water the left foot. He is reassured no local signs of infection are noted however these are precautions to prevent further devitalization or bacterial colonization. He has a surgical offloading shoe at home. To offload left foot ulcer with Cam walker offloading Plastizote liner. The offloading pocket appears appropriately aligned to take pressure off of the ulcer site now. To use a walker until his wheelchair arrives. I discussed the need for serious offloading for limb salvage purposes. He has tried various shoes and walking boots. He has struggled with the use of such as a walker of a knee roller and has impaired gait. An electric power wheelchair (extra width-heavy duty) is also an option and at this time I recommend this. The CPT code for this device is K0807. This is medically necessary due to his bilateral lower extremity non weightbearing status, he lives alone and does not have assistance, he is a fall risk, and prolonged delayed wound healing is limb and life threatening. Updated prescription was provided again at previous visit. He is now better communicating this plan with his insurance company and has also located a durable medical delivery driver location to proceed forward with this service. The request has been reviewed by ravi and has been assigned a pending reference number #[id number]. Per the patient, this was recently approved he was advised to proceed forward with getting the device to ensure he is able to offload. Anticipated arrival time is four weeks. He also recently installed a ramp at his home to accommodate home entry. His noninvasive vascular studies were reviewed from 05-04-2020 which were normal and intervention was previously not recommended. Urine he had bilateral arterial duplex and was advised to follow-up 1 year for updated exam. I reviewed Dr. Bonilla's note from June 14, 2020. To continue to work on decreasing glucose levels. He has a history of hyperglycemia. His last A1c was 8.8% in October 2020. To continue follow-up with primary care physician. To continue to follow-up with nutritional services. To continue to follow-up as advised. It is noted he is eating a limited amount of whole foods; I recommend starting with at least 5-10 each day. Some examples were provided. He is currently making adjustments with his nutritional habits. He also follows up with home appliance washing machine mechanic, Dr. Arteaga, who is working with him to reduce his hemoglobin A1c with medication and behavioral changes. He started a new medication recently to better control his glucose levels he reports his home glucose levels have been decreasing. Smoking cessation was discussed in detail and he was advised on the healing impairment associated with this. To continue with his smoking cessation program. He denies current tobacco use. I also recommend discontinuation of nicotine products for this also contributes to small vessel contraction. The following options exist: Proceeding with a palliative wound care plan which he follows up every 2 to 4 weeks and the goal is to keep the ulcers noninfected and stable, below-knee amputation, revision transmetatarsal amputation with rotational skin flap. Prognosis is guarded with ongoing glucose elevation and inability to comply with nonweightbearing standards. He is hopeful that wheelchair with aid offloading goals. I answered all of his questions today. To return to clinic in 2 weeks with physician, or call sooner if questions, concerns, or progressive worsening. Note: [employer] speech recognition machine clothing man software was used to create portions of this document. Sound-alike and misspelled words, as well as other machine clothing man errors may be contained in the documentation.
== END 2021-07-22 23:59 ==
LOC: WC 13:15
PROVIDERS: PCP Family Medicine Geriatric Medicine; Referring Provider Podiatrist; Visit Provider Podiatrist
DX: E11.621 Type 2 diabetes mellitus with foot ulcer (principal); L97.522 Non-pressure chronic ulcer of other part of left foot with fat layer exposed; L97.912 Non-pressure chronic ulcer of unspecified part of right lower leg with fat layer exposed; E11.42 Type 2 diabetes mellitus with diabetic polyneuropathy; R53.81 Other malaise; R60.0 Localized edema; Z79.4 Long term (current) use of insulin
CPT/HCPCS: 11042

== ENCOUNTER → 2021-07-31 14:23 | Outpatient (CLI) | payer MEDICARE, MEDICAID, SELFPAY ==
[2021-07-31 16:13] LABS: Absolute Lymphocyte Count 1.94 X10^3/uL (0.83-4.51); Absolute Neutrophil Count 5.8 X10^3/uL (2.0-7.7); Basophil# 0.11 X10^3/uL; Basophil% 1.2 % (0-1); Eosinophil# 0.34 X10^3/uL; Eosinophils% 3.8 % (0-5); Hematocrit 47.8 % (40-54); Hemoglobin 14.5 g/dL (13.0-16.5); Lymphocyte # 1.94 X10^3/ul (0.83-4.51); Lymphocyte % 21.8 % (19-41); Mean Corp Hgb Conc 30.3 g/dL (32-36); Mean Corpuscular Hgb 26.2 pg (27.0-32.0); Mean Corpuscular Volume 86.3 fL (80-94); Mean Platelet Vol. 10.6 fl (6.2-12.0); Monocyte# 0.62 X10^3/uL; NRBC Flagged by Analyzer 0 % (0-5); Neutrophil % 65.3 % (47-70); Platelet Count 268 K/mm3 (150-450); RBC Distribution Width CV 16.2 % (11.6-14.6); RBC Distribution Width SD 51.7 fl (35.1-43.9); Red Blood Count 5.54 M/mm3 (4.6-6.2); White Blood Count 8.9 K/mm3 (4.4-11.0)
[2021-07-31 16:34] LABS: Vitamin D,25 Hydroxy 42.6 ng/mL
[2021-07-31 16:42] LABS: ALB/GLOB Ratio 0.7 RATIO (0.9-2.4); AST(SGOT) 19 U/L (15-37); Alanine Aminotransfer ALT/SGPT 33 U/L (16-61); Albumin, Serum 3.1 g/dL (3.2-5.0); Alkaline Phosphatase 95 U/L (45-117); Anion Gap 6 (5-15); BUN 8 mg/dL (7-18); BUN/Creat Ratio 9.5 RATIO (10-20); Calcium,Total 9.1 mg/dL (8.5-10.1); Chloride 106 mmol/L (98-107); Creatinine, Serum 0.84 mg/dL (0.70-1.30); EST Glomerular Filtration Rate 97 mL/min (>60); Est Glom Filt Rate - Afr Amer 117 mL/min (>60); Globulin 4.7 g/dL (2.2-4.2); Glucose 66 mg/dL (74-106); PSA,Total - Annual Screen 1.86 ng/mL (0.00-4.00); Protein, Total 7.8 g/dL (6.4-8.2); Sodium Level 139 mmol/L (136-145); Thyroid Stim Hormone (TSH) 2.57 uIU/mL (0.358-3.74)
== END ==
PROVIDERS: PCP Family Medicine Geriatric Medicine; Visit Provider Family Medicine Geriatric Medicine
DX: I10 Essential (primary) hypertension (principal); E55.9 Vitamin D deficiency, unspecified; F52.8 Other sexual dysfunction not due to a substance or known physiological condition; Z12.5 Encounter for screening for malignant neoplasm of prostate
CPT/HCPCS: 36415; 80053; 82306; 84153; 84403; 84443; 85025; G0103

== ENCOUNTER 2021-08-08 13:00 | Outpatient (RCR) | payer MEDICARE, MEDICAID, SELFPAY ==
[2021-07-23 00:17] VITALS: BP 96/56; PULSE 100; RESP 18; TEMP 36.6; BMI 48.5
[2021-07-25 13:16] VITALS: BP 129/67; PULSE 96; RESP 22; TEMP 36.9; BMI 48.5
--- NOTE | 2021-07-25 14:36 | PCM.WC.PN ---
History of Present Illness Date of Service: 07/25/21 Chief Complaint: Diabetic left foot ulceration, [place] Grade 3 right leg ulcer History of Wound: This 66-year-old male with multiple comorbidities was seen today for left foot ulcer that is very chronic. He was also seen for right leg ulcer. He denies diarrhea, fever, chill, nausea, vomiting. He denies redness or odor. He denies calf pain. He has debility and difficulty walking. He was trying to get approved for an electric wheelchair in which he was successful. However the parts are on back order and this is expected to arrive in 2021. He denies injuries. Progress of Wound: Healed right Stable left Objective Data Objective Data Vital Signs: Vital Signs Temp Pulse Resp BP 98.4 F 96 22 H 129/67 H 07/25/21 13:16 07/25/21 13:16 07/25/21 13:16 07/25/21 13:16 Weight: 147.418 kg Body Mass Index (BMI) 48.5 Physical Exam Extremity Extremity Narrative: No calf tenderness Diminished pulses Left transmetatarsal amputation Muscle wasting noted Skin Skin Narrative: no purulence, no streaking, no odor, no infection. Bilateral lower extremity skin is atrophic and hairless. Right leg ulcer healed with full epithelialization with reduced peripheral skin dryness. Left plantar foot ulcer has improvement in healthy granular base tissue without devitalized central location. No maceration, necrosis or infection. reduced ulcer depth noted Neuro Neuro Narrative: lack of normal epicritic sensation via light touch is consistent with neuropathy status Debridement Note Debridement Note Wound debrided: Left plantar foot Wound Grade/Stage: 1 Type of Debridement: Excisional debridement Anesthesia Used: 4% Lidocaine Solution Depth: in the subcutaneous layer Percentage of wound debrided: 100 Instrument Used: #15 blade Tissue Removed: fibrous, devitalized subcutaneous, biofilm, slough Severity: Fat Layer Exposed Amount of bleeding with debridement: Mild Bleeding Controlled with: Pressure Patient tolerated procedure: Patient tolerated procedure well Post-Debridement Measurements and Additional Note: Post-Debridement Measurements/Treatment UZIEL - Nurse 1 - General Ulcer Assessment Start: 07/25/21 13:16 Freq: Status: Active Protocol: MARIA ESTHER Activity Type Activity Date Activity User E-Sign Co-Sign Detail Recorded Client Recorded Date Recorded By Document 07/25/21 13:16 DL [id number] 07/25/21 13:26 DL 07/25/21 13:16 - Today's Visit Information Type of service Follow-up Visit (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 ) Arrival Mode Ambulatory, Walker Transfer Assistance None Patient Identification Verified (Name & Yes ) Patient Requires Transmission-Based No Precautions Finger Stick Blood Sugar(mg/dl) (if 182 indicated): Blood Sugar Stated by Patient Height and Weight Body Mass Index (BMI) 48.5 BMI Classification Obese Vital Signs Temperature (97.8 F-99.1 F) 98.4 F Temperature Source Temporal Pulse Rate (60-100) 96 Pulse Location Monitor Respiratory Rate (12-18) 22 H Respiratory rate source Observation Blood Pressure (90/60-120/80) 129/67 H Blood Pressure Mean (mm Hg) 87 Source Monitor History Since Last Visit- (Skip if this is Patient's initial visit) Have you changed medications since your No last visit? Any new allergies or adverse reactions No Had a fall/change in ADL's that may No increase risk of falls Signs or symptoms of abuse and/or No neglect since last visit Have you been in the hospital since your No last visit? Has dressing in place as prescribed Yes Has compression in place as prescribed No Has offloadiing in place as prescribed Yes Experienced any changes in pain level or No management Left Footwear Removable Cast Walker/Walking Boot Pain Scale: 0-10 Numeric Is Patient Pain Free? Yes - Nurse 1 - General Ulcer Measurement Start: 07/25/21 13:16 Freq: Status: Active Protocol: Activity Type Activity Date Activity User E-Sign Co-Sign Detail Recorded Client Recorded Date Recorded By Document 07/25/21 13:16 DL [id number] 07/25/21 13:26 DL 07/25/21 13:16 Wound Center Nurse 1 #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 -Current Size (cm) - Length 0.1 -Current Size (cm) - Width 0.1 -Current Size (cm) - Depth 0.1 -Total Square Cm 0.01 -Photo Taken No -Exudate Amt None Present -Granulation Amt Small (1-33%) -Granulation Quality Red -Necrosis Amt Small (1-33%) -Necrotic Tissue Type Adherent Slough -Structure Exposed N/A -Texture (Maria M-wound Skin Appearance) Scarring -Moisture (Maria M-wound Skin Appearance) Dry/Scaly -Color (Maria M-wound Skin Appearance) Hemosiderin Staining -Temperature (Maria M-wound Skin No Abnormality Appearance) (Pt Warm) -Tenderness on Palpation (Maria M-wound No Skin Appearance) -Ulcer Cleansing Soap and Water -Foul Odor after Cleansing No -Anesthetic Used 5% Lidocaine Gel #13 LEFT MEDIAL PLANTAR -Current Size (cm) - Length 1.9 -Current Size (cm) - Width 2 -Current Size (cm) - Depth 0.5 -Total Square Cm 3.8 -Photo Taken No -Exudate Amt Small -Exudate Type Serosanguineous -Wound Margin Thickened -Granulation Amt Large (67-100%) -Granulation Quality Red -Necrosis Amt Small (1-33%) -Necrotic Tissue Type Adherent Slough -Structure Exposed N/A -Texture (Maria M-wound Skin Appearance) Scarring -Moisture (Maria M-wound Skin Appearance) No Abnormality -Color (Maria M-wound Skin Appearance) Hemosiderin Staining -Temperature (Maria M-wound Skin No Abnormality Appearance) (Pt Warm) -Tenderness on Palpation (Maria M-wound No Skin Appearance) -Ulcer Cleansing Soap and Water -Foul Odor after Cleansing No -Anesthetic Used 5% Lidocaine Gel Right Calf (cm) 44 Right Ankle (cm) 24.5 Left Calf (cm) 44.5 Left Ankle (cm) 27.5 WC - Nurse 2 - General Ulcer CM Notes Start: 07/25/21 13:16 Freq: Status: Active Protocol: Activity Type Activity Date Activity User E-Sign Co-Sign Detail Recorded Client Recorded Date Recorded By Document 07/25/21 13:28 CASSY [id number] 07/25/21 13:37 CASSY 07/25/21 13:28 Wound Center Nurse 2 #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 -Time 13:32 -Correct Patient No -Correct Side, Site, Position No -Correct Procedure No -Procedure Performed No -Post Debridement (cm) - Length 0 -Post Debridement (cm) - Width 0 -Post Debridement (cm) - Depth 0 -Total Square (Post) (cm) 0 -Area of Debridement (cm) - Length 0 -Area of Debridement (cm) - Width 0 -Total Square (Area) (cm) 0 -Tunneling No -Undermining/Tunneling No -Circular Undermining No -Wound/Ulcer Outcome Healed- Epithelialized -Ulcer Cleansing Rinsed/ Irrigated with Saline -Foul Odor after Cleansing No -Bioengineered Tissue No #13 LEFT MEDIAL PLANTAR -Time 13:33 -Correct Patient Yes -Correct Side, Site, Position Yes -Correct Procedure Yes -Procedure Performed Yes -Type of Procedure Debridement -Clinical Debridement Subcutaneous -Tissue Removed Subcutaneous -Post Debridement (cm) - Length 2 -Post Debridement (cm) - Width 2 -Post Debridement (cm) - Depth 0.5 -Total Square (Post) (cm) 4 -Area of Debridement (cm) - Length 2 -Area of Debridement (cm) - Width 2 -Total Square (Area) (cm) 4 -Tunneling No -Undermining/Tunneling No -Circular Undermining No -Wound/Ulcer Outcome Not Healed -Ulcer Cleansing Rinsed/ Irrigated with Saline -Foul Odor after Cleansing No -Bioengineered Tissue No -Bleeding Controlled with Pressure -Offloading Yes -Type of Offloading Camwalker -Treatment Response Procedure Tolerated Well -Debridement - Subq, 1st 20sq cm Yes WC - Nurse 3 - General Ulcer D/C NN Start: 07/25/21 13:16 Freq: Status: Active Protocol: Activity Type Activity Date Activity User E-Sign Co-Sign Detail Recorded Client Recorded Date Recorded By Document 07/25/21 13:54 DL [id number] 07/25/21 13:56 DL 07/25/21 13:54 Wound Care Nurse 3 #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 -Ulcer Cleansing Rinsed/ Irrigated with Saline -Foul Odor after Cleansing No #13 LEFT MEDIAL PLANTAR -Ulcer Cleansing Soap and Water -Foul Odor after Cleansing No -Primary Dressing Applied Aquacel AG 4x4 -Primary Dressing Covered/Secured with Dry Gauze & Roll Gauze, Secured with Tape -Aquacel AG 4x4 1 Treatment Response Procedure Tolerated Well Pain Scale: 0-10 Numeric Is Patient Pain Free? 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: CODE(S): L97.912 - Non-pressure chronic ulcer of unspecified part of right lower leg with fat layer exposed (2) Non-pressure chronic ulcer of other part of left foot with fat layer exposed: CODE(S): L97.522 - Non-pressure chronic ulcer of other part of left foot with fat layer exposed (3) Type 2 diabetes mellitus with diabetic polyneuropathy: CODE(S): E11.42 - Type 2 diabetes mellitus with diabetic polyneuropathy QUALIFIERS: Diabetes mellitus residential insulin use: without terminal manager use Qualified Code(s): E11.42 - Type 2 diabetes mellitus with diabetic polyneuropathy (4) Debility: CODE(S): R53.81 - Other malaise (5) Localized edema: CODE(S): R60.0 - Localized edema PLAN: I reviewed and discussed his case. Subcutaneous excisional debridement was performed as noted in the clinical panel to the left foot. Right leg healed Edema noted and has been addressed. To elevate and reduce salt intake. To continue with Tubigrip compression garments. To change left foot ulcer daily with Aquacel Ag also. He completed a course of advanced wound healing product, epi fix to the left foot and notable improvement is seen. There are some devitalized tissue and I do not recommend application of cast. I would like him to wash this daily with soap and water the left foot. He is reassured no local signs of infection are noted however these are precautions to prevent further devitalization or bacterial colonization. He has a surgical offloading shoe at home. To offload left foot ulcer with Cam walker offloading Plastizote liner. The offloading pocket appears appropriately aligned to take pressure off of the ulcer site now. To use a walker until his wheelchair arrives. I discussed the need for serious offloading for limb salvage purposes. He has tried various shoes and walking boots. He has struggled with the use of such as a walker of a knee roller and has impaired gait. An electric power wheelchair (extra width-heavy duty) is also an option and at this time I recommend this. Per the patient, this was recently approved he was advised to proceed forward with getting the device to ensure he is able to offload. Anticipated arrival time is four weeks. He also recently installed a ramp at his home to accommodate home entry. His noninvasive vascular studies were reviewed from 05-04-2020 which were normal and intervention was previously not recommended. Urine he had bilateral arterial duplex and was advised to follow-up 1 year for updated exam. I reviewed Dr. Bonilla's note from June 14, 2020. To continue to work on decreasing glucose levels. He has a history of hyperglycemia. His last A1c was 8.8% in October 2020. To continue follow-up with primary care physician. To continue to follow-up with nutritional services. To continue to follow-up as advised. It is noted he is eating a limited amount of whole foods; I recommend starting with at least 5-10 each day. Some examples were provided. He is currently making adjustments with his nutritional habits. He also follows up with firing pin gauger, Dr. Arteaga, who is working with him to reduce his hemoglobin A1c with medication and behavioral changes. He started a new medication recently to better control his glucose levels he reports his home glucose levels have been decreasing. Smoking cessation was discussed in detail and he was advised on the healing impairment associated with this. To continue with his smoking cessation program. He denies current tobacco use. I also recommend discontinuation of nicotine products for this also contributes to small vessel contraction. The following options exist: Proceeding with a palliative wound care plan which he follows up every 2 to 4 weeks and the goal is to keep the ulcers noninfected and stable, below-knee amputation, revision transmetatarsal amputation with rotational skin flap. Prognosis is guarded with ongoing glucose elevation and inability to comply with nonweightbearing standards. He is hopeful that wheelchair with aid offloading goals. I answered all of his questions today. To return to clinic in 2 weeks with physician, or call sooner if questions, concerns, or progressive worsening. Note: [employer] speech recognition hydroelectric station chief software was used to create portions of this document. Sound-alike and misspelled words, as well as other hydroelectric station chief errors may be contained in the documentation.
[2021-08-08 13:06] VITALS: BP 181/70; PULSE 87; RESP 18; TEMP 36.4; BMI 48.5
--- NOTE | 2021-08-08 14:35 | PCM.WC.PN ---
History of Present Illness Date of Service: 08/08/21 Chief Complaint: Diabetic left foot ulceration, [place] Grade 3 right leg ulcer new History of Wound: This 66-year-old male with multiple comorbidities was seen today for left foot ulcer that is very chronic. He was also seen for right leg ulcer. He denies diarrhea, fever, chill, nausea, vomiting. He denies redness or odor. He denies calf pain. He has debility and difficulty walking. He was trying to get approved for an electric wheelchair in which he was successful. However the parts are on back order and this is expected to arrive in Oct 2021. He reports a new injury yesterday when he scraped his right mccloud and noticed that when he saw blood. He denies being more active even though he has more callus to both feet. He has rupturing his calluses because he does not feel safe performing this on his own. Progress of Wound: New right leg ulcer Stable left Objective Data Objective Data Vital Signs: Vital Signs Temp Pulse Resp BP 97.6 F L 87 18 181/70 H 08/08/21 13:06 08/08/21 13:06 08/08/21 13:06 08/08/21 13:06 Oxygen Delivery Method Room Air Weight: 147.418 kg Body Mass Index (BMI) 48.5 Physical Exam Extremity Extremity Narrative: No calf tenderness Diminished pulses Left transmetatarsal amputation Muscle wasting noted Skin Skin Narrative: no purulence, no streaking, no odor, no infection. Bilateral lower extremity skin is atrophic and hairless. New skin discontinuity right central anterior leg with granular base and some superficial overlying peeling skin was left intact. Left plantar foot ulcer has improvement in healthy granular base tissue without devitalized central location. No maceration, necrosis or infection. There is also a fissured callus to the plantar first metatarsal head region of the right foot and excessive callus periulcer on the left foot noted today Neuro Neuro Narrative: lack of normal epicritic sensation via light touch is consistent with neuropathy status Debridement Note Debridement Note Wound debrided: Plantar left foot Wound Grade/Stage: 1 Type of Debridement: Excisional debridement Anesthesia Used: 4% Lidocaine Solution Depth: in the subcutaneous layer Percentage of wound debrided: 100 Instrument Used: #15 blade Tissue Removed: fibrous, devitalized subcutaneous, biofilm, slough Severity: Fat Layer Exposed Amount of bleeding with debridement: Mild Bleeding Controlled with: Pressure Patient tolerated procedure: Patient tolerated procedure well Post-Debridement Measurements and Additional Note: Post-Debridement Measurements/Treatment UZIEL - Nurse 1 - General Ulcer Assessment Start: 07/25/21 13:16 Freq: Status: Active Protocol: MARIA ESTHER Activity Type Activity Date Activity User E-Sign Co-Sign Detail Recorded Client Recorded Date Recorded By Document 07/25/21 13:16 DL [id number] 07/25/21 13:26 DL Document 08/08/21 13:06 [facility] [id number] 08/08/21 13:17 BM 07/25/21 08/08/21 13:16 13:06 WC - Today's Visit Information Type of service Follow-up Visit Follow-up Visit (Physician/ENVIRONMENTAL CONSERVATION OFFICER (Physician/ENVIRONMENTAL CONSERVATION OFFICER ) ) Arrival Mode Ambulatory, Ambulatory Walker Transfer Assistance None None Patient Identification Verified (Name & Yes Yes ) Patient Requires Transmission-Based No No Precautions Finger Stick Blood Sugar(mg/dl) (if 182 indicated): Blood Sugar Stated by Patient Height and Weight Body Mass Index (BMI) 48.5 48.5 BMI Classification Obese Obese Vital Signs Temperature (97.8 F-99.1 F) 98.4 F 97.6 F L Temperature Source Temporal Temporal Pulse Rate (60-100) 96 87 Pulse Location Monitor Monitor Respiratory Rate (12-18) 22 H 18 Respiratory rate source Observation Observation Oxygen Delivery Method Room Air Blood Pressure (90/60-120/80) 129/67 H 181/70 H Blood Pressure Mean (mm Hg) 87 107 Source Monitor Monitor Position Sitting Blood Pressure Location Left Arm History Since Last Visit- (Skip if this is Patient's initial visit) Have you changed medications since your No No last visit? Any new allergies or adverse reactions No No Had a fall/change in ADL's that may No No increase risk of falls Signs or symptoms of abuse and/or No No neglect since last visit Have you been in the hospital since your No No last visit? Has dressing in place as prescribed Yes Yes Has compression in place as prescribed No No Has offloadiing in place as prescribed Yes Yes Experienced any changes in pain level or No No management Left Footwear Removable Cast Removable Cast Walker/Walking Walker/Walking Boot Boot Right Footwear Regular Shoe Pain Scale: 0-10 Numeric Is Patient Pain Free? Yes Yes UZIEL - Nurse 1 - General Ulcer Measurement Start: 07/25/21 13:16 Freq: Status: Active Protocol: Activity Type Activity Date Activity User E-Sign Co-Sign Detail Recorded Client Recorded Date Recorded By Document 07/25/21 13:16 DL [id number] 07/25/21 13:26 DL Document 08/08/21 13:06 [facility] [id number] 08/08/21 13:17 BM 07/25/21 08/08/21 13:16 13:06 Wound Center Nurse 1 #20- R MCCLOUD -Combined with other wound No -Current Size (cm) - Length 4.3 -Current Size (cm) - Width 1.2 -Current Size (cm) - Depth 0.1 -Total Square Cm 5.16 -Photo Taken No -Epithelialization None Present -Tunneling No -Undermining/Tunneling No -Circular Undermining No -Exudate Amt Medium -Exudate Type Purulent -Wound Margin Distinct, Outline Attached -Granulation Amt Medium (34-66%) -Granulation Quality Red -Slough/Fibrin Yes -Necrosis Amt Medium (34-66%) -Necrotic Tissue Type Eschar -Texture (Maria M-wound Skin Appearance) Assessed, Scarring -Moisture (Maria M-wound Skin Appearance) Assessed -Color (Maria M-wound Skin Appearance) Assessed, Erythema -Temperature (Maria M-wound Skin No Abnormality Appearance) (Pt Warm) -Tenderness on Palpation (Maria M-wound No Skin Appearance) -Ulcer Cleansing Rinsed/ Irrigated with Saline -Foul Odor after Cleansing No -Anesthetic Used 5% Lidocaine Gel #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 -Current Size (cm) - Length 0.1 -Current Size (cm) - Width 0.1 -Current Size (cm) - Depth 0.1 -Total Square Cm 0.01 -Photo Taken No -Exudate Amt None Present -Granulation Amt Small (1-33%) -Granulation Quality Red -Necrosis Amt Small (1-33%) -Necrotic Tissue Type Adherent Slough -Structure Exposed N/A -Texture (Maria M-wound Skin Appearance) Scarring -Moisture (Maria M-wound Skin Appearance) Dry/Scaly -Color (Maria M-wound Skin Appearance) Hemosiderin Staining -Temperature (Maria M-wound Skin No Abnormality Appearance) (Pt Warm) -Tenderness on Palpation (Maria M-wound No Skin Appearance) -Ulcer Cleansing Soap and Water -Foul Odor after Cleansing No -Anesthetic Used 5% Lidocaine Gel #13 LEFT MEDIAL PLANTAR -Combined with other wound No -Current Size (cm) - Length 1.9 2.3 -Current Size (cm) - Width 2 1.9 -Current Size (cm) - Depth 0.5 0.6 -Total Square Cm 3.8 4.37 -Photo Taken No No -Epithelialization None Present -Tunneling No -Undermining/Tunneling No -Circular Undermining No -Exudate Amt Small Medium -Exudate Type Serosanguineous Serosanguineous -Wound Margin Thickened Thickened -Granulation Amt Large (67-100%) Large (67-100%) -Granulation Quality Red Red -Slough/Fibrin Yes -Necrosis Amt Small (1-33%) Small (1-33%) -Necrotic Tissue Type Adherent Slough Adherent Slough -Structure Exposed N/A -Texture (Maria M-wound Skin Appearance) Scarring Assessed,Callus ,Scarring -Moisture (Maria M-wound Skin Appearance) No Abnormality Assessed,Dry/ Scaly -Color (Maria M-wound Skin Appearance) Hemosiderin Assessed Staining -Temperature (Maria M-wound Skin No Abnormality No Abnormality Appearance) (Pt Warm) (Pt Warm) -Tenderness on Palpation (Maria M-wound No No Skin Appearance) -Ulcer Cleansing Soap and Water Rinsed/ Irrigated with Saline -Foul Odor after Cleansing No No -Anesthetic Used 5% Lidocaine 5% Lidocaine Gel Gel Lower Limb Edema Present Yes Right Calf (cm) 44 45 Right Ankle (cm) 24.5 26.7 Left Calf (cm) 44.5 46.7 Left Ankle (cm) 27.5 28 - Nurse 2 - General Ulcer CM Notes Start: 07/25/21 13:16 Freq: Status: Active Protocol: Activity Type Activity Date Activity User E-Sign Co-Sign Detail Recorded Client Recorded Date Recorded By Document 07/25/21 13:28 CASSY [id number] 07/25/21 13:37 Document 08/08/21 13:26 CASSY [id number] 08/08/21 13:34 07/25/21 08/08/21 13:28 13:26 Wound Center Nurse 2 #20- R MCCLOUD -Time 13:27 -Correct Patient No -Correct Side, Site, Position No -Correct Procedure No -Procedure Performed No -Wound/Ulcer Outcome Not Healed #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 -Time 13:32 -Correct Patient No -Correct Side, Site, Position No -Correct Procedure No -Procedure Performed No -Post Debridement (cm) - Length 0 -Post Debridement (cm) - Width 0 -Post Debridement (cm) - Depth 0 -Total Square (Post) (cm) 0 -Area of Debridement (cm) - Length 0 -Area of Debridement (cm) - Width 0 -Total Square (Area) (cm) 0 -Tunneling No -Undermining/Tunneling No -Circular Undermining No -Wound/Ulcer Outcome Healed- Epithelialized -Ulcer Cleansing Rinsed/ Irrigated with Saline -Foul Odor after Cleansing No -Bioengineered Tissue No #13 LEFT MEDIAL PLANTAR -Time 13:33 13:26 -Correct Patient Yes Yes -Correct Side, Site, Position Yes Yes -Correct Procedure Yes Yes -Procedure Performed Yes Yes -Type of Procedure Debridement Debridement -Clinical Debridement Subcutaneous Subcutaneous -Tissue Removed Subcutaneous Subcutaneous -Post Debridement (cm) - Length 2 2.5 -Post Debridement (cm) - Width 2 2.5 -Post Debridement (cm) - Depth 0.5 0.3 -Total Square (Post) (cm) 4 6.25 -Area of Debridement (cm) - Length 2 2.5 -Area of Debridement (cm) - Width 2 2.5 -Total Square (Area) (cm) 4 6.25 -Tunneling No No -Undermining/Tunneling No No -Circular Undermining No No -Wound/Ulcer Outcome Not Healed Not Healed -Ulcer Cleansing Rinsed/ Rinsed/ Irrigated with Irrigated with Saline Saline -Foul Odor after Cleansing No No -Bioengineered Tissue No No -Bleeding Controlled with Pressure Pressure -Offloading Yes Yes -Type of Offloading Camwalker Camwalker -Treatment Response Procedure Procedure Tolerated Well Tolerated Well -Debridement - Subq, 1st 20sq cm Yes Yes Pain Scale: 0-10 Numeric Is Patient Pain Free? Yes WC - Nurse 3 - General Ulcer D/C NN Start: 07/25/21 13:16 Freq: Status: Active Protocol: Activity Type Activity Date Activity User E-Sign Co-Sign Detail Recorded Client Recorded Date Recorded By Document 07/25/21 13:54 DL [id number] 07/25/21 13:56 DL Document 08/08/21 13:45 DL [id number] 08/08/21 13:47 DL 07/25/21 08/08/21 13:54 13:45 Wound Care Nurse 3 #20- R MCCLOUD -Ulcer Cleansing Rinsed/ Irrigated with Saline -Foul Odor after Cleansing No -Primary Dressing Applied C Hydrogel ($), NonAdherent Contact Layer -Primary Dressing Covered/Secured with Dry Gauze & Roll Gauze, Secured with Tape #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 -Ulcer Cleansing Rinsed/ Irrigated with Saline -Foul Odor after Cleansing No #13 LEFT MEDIAL PLANTAR -Ulcer Cleansing Soap and Water Soap and Water -Foul Odor after Cleansing No No -Primary Dressing Applied Aquacel AG 4x4 Aquacel AG 4x4 -Primary Dressing Covered/Secured with Dry Gauze & Dry Gauze & Roll Gauze, Roll Gauze, Secured with Secured with Tape Tape -Aquacel AG 4x4 1 1 Treatment Response Procedure Procedure Tolerated Well Tolerated Well Pain Scale: 0-10 Numeric Is Patient Pain Free? 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: CODE(S): L97.912 - Non-pressure chronic ulcer of unspecified part of right lower leg with fat layer exposed (2) Non-pressure chronic ulcer of other part of left foot with fat layer exposed: CODE(S): L97.522 - Non-pressure chronic ulcer of other part of left foot with fat layer exposed (3) Type 2 diabetes mellitus with diabetic polyneuropathy: CODE(S): E11.42 - Type 2 diabetes mellitus with diabetic polyneuropathy 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 Subcutaneous excisional debridement was performed as noted in the clinical panel to the left foot. Right leg has a new ulcer site now is noted. This was not debrided today. Edema noted and has been addressed. To elevate and reduce salt intake. To continue with Tubigrip compression garments. To change left foot ulcer daily with hydrogel and gauze. He completed a course of advanced wound healing product, epi fix to the left foot and notable improvement is seen. There are some devitalized tissue and I do not recommend application of cast. His callus sites to right subfirst metatarsal head and left periulcer were debrided with 15 blade and tissue nipper without incident. He was advised to apply moisturizing cream. I recommend callus debridement by a professional due to his class findings and neuropathic status. This is not safe for him to perform this on his own. The sites are considered preulcerative lesions and were debrided to prevent additional ulcer formation. I would like him to wash this daily with soap and water the left foot. He is reassured no local signs of infection are noted however these are precautions to prevent further devitalization or bacterial colonization. He has a surgical offloading shoe at home. To offload left foot ulcer with Cam walker offloading Plastizote liner. The offloading pocket appears appropriately aligned to take pressure off of the ulcer site now. To use a walker until his wheelchair arrives. I discussed the need for serious offloading for limb salvage purposes. He has tried various shoes and walking boots. He has struggled with the use of such as a walker of a knee roller and has impaired gait. An electric power wheelchair (extra width-heavy duty) is also an option and at this time I recommend this. Per the patient, this was recently approved he was advised to proceed forward with getting the device to ensure he is able to offload. Anticipated arrival time is four weeks. He also recently installed a ramp at his home to accommodate home entry. His noninvasive vascular studies were reviewed from 05-04-2020 which were normal and intervention was previously not recommended. Urine he had bilateral arterial duplex and was advised to follow-up 1 year for updated exam. I reviewed Dr. Bonilla's note from June 14, 2020. To continue to work on decreasing glucose levels. He has a history of hyperglycemia. His last A1c was 8.8% in October 2020. To continue follow-up with primary care physician. To continue to follow-up with nutritional services. To continue to follow-up as advised. It is noted he is eating a limited amount of whole foods; I recommend starting with at least 5-10 each day. Some examples were provided. He is currently making adjustments with his nutritional habits. He also follows up with service desk technician, Dr. Arteaga, who is working with him to reduce his hemoglobin A1c with medication and behavioral changes. He started a new medication recently to better control his glucose levels he reports his home glucose levels have been decreasing. Smoking cessation was discussed in detail and he was advised on the healing impairment associated with this. To continue with his smoking cessation program. He denies current tobacco use. I also recommend discontinuation of nicotine products for this also contributes to small vessel contraction. The following options exist: Proceeding with a palliative wound care plan which he follows up every 2 to 4 weeks and the goal is to keep the ulcers noninfected and stable, below-knee amputation, revision transmetatarsal amputation with rotational skin flap. Prognosis is guarded with ongoing glucose elevation and inability to comply with nonweightbearing standards. He is hopeful that wheelchair with aid offloading goals. I answered all of his questions today. To return to clinic in 2 weeks with physician, or call sooner if questions, concerns, or progressive worsening. Note: [employer] speech recognition paint mixer software was used to create portions of this document. Sound-alike and misspelled words, as well as other paint mixer errors may be contained in the documentation. 20 minutes was spent on this encounter. This included face to face and non face to face care including preparing for the visit, reviewing the history, performing the exam, counseling and providing education to the patient, family, or caregiver, ordering medications/test/ procedures if indicated as documented, communicating with other healthcare providers, documenting information in the medical record, interpreting / sharing this information when indicated as documented, and care coordination.
== END 2021-08-21 23:59 ==
LOC: WC 13:00
PROVIDERS: PCP Family Medicine Geriatric Medicine; Referring Provider Podiatrist; Visit Provider Podiatrist
DX: E11.621 Type 2 diabetes mellitus with foot ulcer (principal); L97.522 Non-pressure chronic ulcer of other part of left foot with fat layer exposed; L97.912 Non-pressure chronic ulcer of unspecified part of right lower leg with fat layer exposed; E11.42 Type 2 diabetes mellitus with diabetic polyneuropathy; R53.81 Other malaise; R60.0 Localized edema; L84 Corns and callosities; Z79.4 Long term (current) use of insulin
CPT/HCPCS: 11042

== ENCOUNTER 2021-09-05 13:00 | Outpatient (RCR) | payer MEDICARE, MEDICAID, SELFPAY ==
[2021-08-22 00:23] VITALS: BP 181/70; PULSE 87; RESP 18; TEMP 36.4; BMI 48.5
[2021-08-22 13:05] VITALS: BP 149/82; PULSE 84; RESP 18; TEMP 36.6; BMI 48.5
--- NOTE | 2021-08-22 13:35 | PN.PCM_ITS ---
History of Present Illness Date of Service: 08/22/21 Chief Complaint: Diabetic left foot ulceration, [place] Grade 3 right leg ulcer History of Wound: This 66-year-old male with multiple comorbidities was seen today for left foot ulcer that is very chronic. He was also seen for right leg ulcer. He denies diarrhea, fever, chill, nausea, vomiting. He denies redness or odor. He denies calf pain. He has debility and difficulty walking. He was trying to get approved for an electric wheelchair in which he was successful. However the parts are on back order and this is expected to arrive in Oct 2021. He denies new injuries or complaints today. Progress of Wound: stable bilateral Objective Data Objective Data Vital Signs: Vital Signs Temp Pulse Resp BP 97.8 F 84 18 149/82 H 08/22/21 13:05 08/22/21 13:05 08/22/21 13:05 08/22/21 13:05 Weight: 147.418 kg Body Mass Index (BMI) 48.5 Physical Exam Extremity Extremity Narrative: No calf tenderness Diminished pulses Left transmetatarsal amputation Muscle wasting noted Skin Skin Narrative: no purulence, no streaking, no odor, no infection. Bilateral lower extremity skin is atrophic and hairless. skin discontinuity right central anterior leg with granular base and some superficial overlying peeling skin was left intact. Left plantar foot ulcer has improvement in healthy granular base tissue without devitalized central location. No maceration, necrosis or infection. Neuro Neuro Narrative: lack of normal epicritic sensation via light touch is consistent with neuropathy status Debridement Note Debridement Note Wound debrided: right leg and left foot Wound Grade/Stage: 1 Type of Debridement: Excisional debridement Anesthesia Used: 4% Lidocaine Solution Depth: in the subcutaneous layer Percentage of wound debrided: 100 Instrument Used: #15 blade Tissue Removed: fibrous, devitalized subcutaneous, biofilm, slough Severity: Fat Layer Exposed Amount of bleeding with debridement: Mild Bleeding Controlled with: Pressure Patient tolerated procedure: Patient tolerated procedure well Post-Debridement Measurements and Additional Note: Post-Debridement Measurements/Treatment UZIEL - Nurse 1 - General Ulcer Assessment Start: 08/22/21 13:05 Freq: Status: Active Protocol: MARIA ESTHER Activity Type Activity Date Activity User E-Sign Co-Sign Detail Recorded Client Recorded Date Recorded By Document 08/22/21 13:05 LEV [id number] 08/22/21 13:10 RB 08/22/21 13:05 - Today's Visit Information Type of service Follow-up Visit (Physician/CIG[employer] BANDER ) Arrival Mode Ambulatory, Walker Transfer Assistance None Patient Identification Verified (Name & Yes ) Patient Requires Transmission-Based No Precautions Finger Stick Blood Sugar(mg/dl) (if 164 indicated): Blood Sugar Stated by Patient Height and Weight Body Mass Index (BMI) 48.5 BMI Classification Obese Vital Signs Temperature (97.8 F-99.1 F) 97.8 F Temperature Source Temporal Pulse Rate (60-100) 84 Pulse Location Monitor Respiratory Rate (12-18) 18 Respiratory rate source Observation Blood Pressure (90/60-120/80) 149/82 H Blood Pressure Mean (mm Hg) 104 Source Monitor Position Semi-Fowlers Blood Pressure Location Left Arm History Since Last Visit- (Skip if this is Patient's initial visit) Have you changed medications since your No last visit? Any new allergies or adverse reactions No Had a fall/change in ADL's that may No increase risk of falls Signs or symptoms of abuse and/or No neglect since last visit Have you been in the hospital since your No last visit? Has dressing in place as prescribed Yes Has compression in place as prescribed No Has offloadiing in place as prescribed No Experienced any changes in pain level or No management Pain Scale: 0-10 Numeric Is Patient Pain Free? Yes - Nurse 1 - General Ulcer Measurement Start: 08/22/21 13:05 Freq: Status: Active Protocol: Activity Type Activity Date Activity User E-Sign Co-Sign Detail Recorded Client Recorded Date Recorded By Document 08/22/21 13:05 [id number] 08/22/21 13:10 RB 08/22/21 13:05 Wound Center Nurse 1 #20- R BRYANT -Combined with other wound No -Current Size (cm) - Length 2.3 -Current Size (cm) - Width 1.3 -Current Size (cm) - Depth 0.1 -Total Square Cm 2.99 -Tunneling No -Undermining/Tunneling No -Circular Undermining No -Exudate Amt Medium -Exudate Type Serosanguineous -Wound Margin Thickened -Granulation Amt Medium (34-66%) -Granulation Quality [place] -Slough/Fibrin Yes -Necrosis Amt Small (1-33%) -Necrotic Tissue Type Adherent Slough -Structure Exposed N/A -Texture (Maria M-wound Skin Appearance) Assessed -Moisture (Maria M-wound Skin Appearance) Assessed -Color (Maria M-wound Skin Appearance) Assessed -Temperature (Maria M-wound Skin No Abnormality Appearance) (Pt Warm) -Tenderness on Palpation (Maria M-wound No Skin Appearance) -Ulcer Cleansing Wound Cleanser -Foul Odor after Cleansing No -Anesthetic Used 5% Lidocaine Gel #13 LEFT MEDIAL PLANTAR -Combined with other wound No -Current Size (cm) - Length 2.6 -Current Size (cm) - Width 2.3 -Current Size (cm) - Depth 0.4 -Total Square Cm 5.98 -Tunneling No -Undermining/Tunneling No -Circular Undermining No -Exudate Amt Medium -Exudate Type Serosanguineous -Wound Margin Thickened -Granulation Amt Medium (34-66%) -Granulation Quality [place] -Slough/Fibrin Yes -Necrosis Amt Small (1-33%) -Necrotic Tissue Type Adherent Slough -Structure Exposed N/A -Texture (Maria M-wound Skin Appearance) Callus -Moisture (Maria M-wound Skin Appearance) Assessed -Color (Maria M-wound Skin Appearance) Assessed -Temperature (Maria M-wound Skin No Abnormality Appearance) (Pt Warm) -Tenderness on Palpation (Maria M-wound No Skin Appearance) -Ulcer Cleansing Wound Cleanser -Foul Odor after Cleansing No -Anesthetic Used 5% Lidocaine Gel Lower Limb Edema Present Yes Right Calf (cm) 45 Right Ankle (cm) 25 Left Calf (cm) 45.4 Left Ankle (cm) 27.6 WC - Nurse 2 - General Ulcer CM Notes Start: 08/22/21 13:05 Freq: Status: Active Protocol: Activity Type Activity Date Activity User E-Sign Co-Sign Detail Recorded Client Recorded Date Recorded By Document 08/22/21 13:20 CASSY [id number] 08/22/21 13:28 CASSY 08/22/21 13:20 Wound Center Nurse 2 #20- R BRYANT -Time 13:21 -Correct Patient Yes -Correct Side, Site, Position Yes -Correct Procedure Yes -Procedure Performed Yes -Type of Procedure Debridement -Clinical Debridement Subcutaneous -Tissue Removed Subcutaneous -Post Debridement (cm) - Length 2.5 -Post Debridement (cm) - Width 0.5 -Post Debridement (cm) - Depth 0.2 -Total Square (Post) (cm) 1.25 -Area of Debridement (cm) - Length 2.5 -Area of Debridement (cm) - Width 0.5 -Total Square (Area) (cm) 1.25 -Tunneling No -Undermining/Tunneling No -Circular Undermining No -Wound/Ulcer Outcome Not Healed -Ulcer Cleansing Rinsed/ Irrigated with Saline -Foul Odor after Cleansing No -Bioengineered Tissue No -Bleeding Controlled with Pressure -Offloading Yes -Type of Offloading Camwalker -Treatment Response Procedure Tolerated Well -Debridement - Subq, 1st 20sq cm Yes #13 LEFT MEDIAL PLANTAR -Time 13:21 -Correct Patient Yes -Correct Side, Site, Position Yes -Correct Procedure Yes -Procedure Performed Yes -Type of Procedure Debridement -Clinical Debridement Subcutaneous -Tissue Removed Subcutaneous -Post Debridement (cm) - Length 3.0 -Post Debridement (cm) - Width 2.5 -Post Debridement (cm) - Depth 0.2 -Total Square (Post) (cm) 7.50 -Area of Debridement (cm) - Length 3.0 -Area of Debridement (cm) - Width 2.5 -Total Square (Area) (cm) 7.50 -Tunneling No -Undermining/Tunneling No -Circular Undermining No -Wound/Ulcer Outcome Not Healed -Ulcer Cleansing Rinsed/ Irrigated with Saline -Foul Odor after Cleansing No -Bioengineered Tissue No -Bleeding Controlled with Pressure -Offloading Yes -Type of Offloading Camwalker -Treatment Response Procedure Tolerated Well -Debridement - Subq, 1st 20sq cm No Pain Scale: 0-10 Numeric Is Patient Pain Free? 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: CODE(S): L97.912 - Non-pressure chronic ulcer of unspecified part of right lower leg with fat layer exposed (2) Non-pressure chronic ulcer of other part of left foot with fat layer exposed: CODE(S): L97.522 - Non-pressure chronic ulcer of other part of left foot with fat layer exposed (3) Type 2 diabetes mellitus with diabetic polyneuropathy: CODE(S): E11.42 - Type 2 diabetes mellitus with diabetic polyneuropathy QUALIFIERS: Diabetes mellitus middle or intermediate school principal insulin use: without middle or intermediate school principal use Qualified Code(s): E11.42 - Type 2 diabetes mellitus with diabetic polyneuropathy (4) Debility: CODE(S): R53.81 - Other malaise (5) Localized edema: CODE(S): R60.0 - Localized edema (6) Corns and callosities: CODE(S): L84 - Corns and callosities PLAN: I reviewed and discussed his case. Subcutaneous excisional debridement was performed as noted in the clinical panel to the left foot and right leg. Edema noted and has been addressed. To elevate and reduce salt intake. To continue with Tubigrip compression garments. To change left foot ulcer daily with hydrogel and gauze. He completed a course of advanced wound healing product, epi fix to the left foot and notable improvement is seen. There are some devitalized tissue and I do not recommend application of cast. His callus sites to right subfirst metatarsal head and left periulcer were debrided with 15 blade and tissue nipper without incident. He was advised to apply moisturizing cream. I recommend callus debridement by a professional due to his class findings and neuropathic status. This is not safe for him to perform this on his own. The sites are considered preulcerative lesions and were debrided to prevent additional ulcer formation. I would like him to wash this daily with soap and water the left foot. He is reassured no local signs of infection are noted however these are precautions to prevent further devitalization or bacterial colonization. He has a surgical offloading shoe at home. To offload left foot ulcer with Cam walker offloading Plastizote liner. The offloading pocket appears appropriately aligned to take pressure off of the ulcer site now. To use a walker until his wheelchair arrives. I discussed the need for serious offloading for limb salvage purposes. He has tried various shoes and walking boots. He has struggled with the use of such as a walker of a knee roller and has impaired gait. An electric power wheelchair (extra width-heavy duty) is also an option and at this time I recommend this. Per the patient, this was recently approved he was advised to proceed forward with getting the device to ensure he is able to offload. Anticipated arrival time is four weeks. He also recently installed a ramp at his home to accommodate home entry. His noninvasive vascular studies were reviewed from 05-04-2020 which were normal and intervention was previously not recommended. Urine he had bilateral arterial duplex and was advised to follow-up 1 year for updated exam. I reviewed Dr. Bonilla's note from June 14, 2020. To continue to work on decreasing glucose levels. He has a history of hyperglycemia. His last A1c was 8.8% in October 2020. To continue follow-up with primary care physician. To continue to follow-up with nutritional services. To continue to follow-up as advised. It is noted he is eating a limited amount of whole foods; I recommend starting with at least 5-10 each day. Some examples were provided. He is currently making adjustments with his nutritional habits. He also follows up with web development consultant, Dr. Arteaga, who is working with him to reduce his hemoglobin A1c with medication and behavioral changes. He started a new medication recently to better control his glucose levels he reports his home glucose levels have been decreasing. Smoking cessation was discussed in detail and he was advised on the healing impairment associated with this. To continue with his smoking cessation program. He denies current tobacco use. I also recommend discontinuation of nicotine products for this also contributes to small vessel contraction. The following options exist: Proceeding with a palliative wound care plan which he follows up every 2 to 4 weeks and the goal is to keep the ulcers noninfected and stable, below-knee amputation, revision transmetatarsal amputation with rotational skin flap. Prognosis is guarded with ongoing glucose elevation and inability to comply with nonweightbearing standards. He is hopeful that wheelchair with aid offloading goals. I answered all of his questions today. To return to clinic in 2 weeks with physician, or call sooner if questions, concerns, or progressive worsening. Note: [employer] speech recognition manager beauty software was used to create portions of this document. Sound-alike and misspelled words, as well as other manager beauty errors may be contained in the documentation.
[2021-09-05 13:16] VITALS: BP 178/69; PULSE 66; TEMP 36.7; BMI 48.5
--- NOTE | 2021-09-05 15:22 | PCM.WC.PN ---
History of Present Illness Date of Service: 09/05/21 Chief Complaint: Diabetic left foot ulceration, [place] Grade 3 right leg ulcer History of Wound: This 66-year-old male with multiple comorbidities was seen today for left foot ulcer that is very chronic. He was also seen for right leg ulcer. He denies diarrhea, fever, chill, nausea, vomiting. He denies redness or odor. He denies calf pain. He has debility and difficulty walking. He was trying to get approved for an electric wheelchair in which he was successful. However the parts are on back order and this is expected to arrive in Oct 2021. He denies new injuries or complaints today. Progress of Wound: stable bilateral Objective Data Objective Data Vital Signs: Vital Signs Temp Pulse Resp BP 98.1 F 66 18 178/69 H 09/05/21 13:16 09/05/21 13:16 08/22/21 13:05 09/05/21 13:16 Weight: 147.418 kg Body Mass Index (BMI) 48.5 Physical Exam Extremity Extremity Narrative: No calf tenderness Diminished pulses Left transmetatarsal amputation Muscle wasting noted Skin Skin Narrative: no purulence, no streaking, no odor, no infection. Bilateral lower extremity skin is atrophic and hairless. skin discontinuity right central anterior leg with granular base and some superficial overlying peeling skin was left intact. Left plantar foot ulcer has improvement in healthy granular base tissue without devitalized central location. No maceration, necrosis or infection. Neuro Neuro Narrative: lack of normal epicritic sensation via light touch is consistent with neuropathy status Debridement Note Debridement Note Wound debrided: right leg, plantar left foot Wound Grade/Stage: 1 Type of Debridement: Excisional debridement Anesthesia Used: 4% Lidocaine Solution Depth: in the subcutaneous layer Percentage of wound debrided: 100 Instrument Used: #15 blade Tissue Removed: fibrous, devitalized subcutaneous, biofilm, slough Severity: Fat Layer Exposed Amount of bleeding with debridement: Mild Bleeding Controlled with: Pressure Patient tolerated procedure: Patient tolerated procedure well Post-Debridement Measurements and Additional Note: Post-Debridement Measurements/Treatment UZIEL - Nurse 1 - General Ulcer Assessment Start: 08/22/21 13:05 Freq: Status: Active Protocol: [email or web address].ADRIANAEXT Activity Type Activity Date Activity User E-Sign Co-Sign Detail Recorded Client Recorded Date Recorded By Document 08/22/21 13:05 LEV [id number] 08/22/21 13:10 RB Document 09/05/21 13:16 AK [id number] 09/05/21 13:19 AK 08/22/21 09/05/21 13:05 13:16 WC - Today's Visit Information Type of service Follow-up Visit Follow-up Visit (Physician/POLITICAL ANTHROPOLOGIST (Physician/POLITICAL ANTHROPOLOGIST ) ) Arrival Mode Ambulatory, Ambulatory, Walker Walker Transfer Assistance None Patient Identification Verified (Name & Yes Yes ) Patient Requires Transmission-Based No No Precautions Safety Precautions NA Finger Stick Blood Sugar(mg/dl) (if 164 indicated): Blood Sugar Stated by Patient Height and Weight Body Mass Index (BMI) 48.5 48.5 BMI Classification Obese Obese Vital Signs Temperature (97.8 F-99.1 F) 97.8 F 98.1 F Temperature Source Temporal Temporal Pulse Rate (60-100) 84 66 Pulse Location Monitor Monitor Respiratory Rate (12-18) 18 Respiratory rate source Observation Blood Pressure (90/60-120/80) 149/82 H 178/69 H Blood Pressure Mean (mm Hg) 104 105 Source Monitor Monitor Position Semi-Fowlers Blood Pressure Location Left Arm History Since Last Visit- (Skip if this is Patient's initial visit) Have you changed medications since your No No last visit? Any new allergies or adverse reactions No No Had a fall/change in ADL's that may No No increase risk of falls Signs or symptoms of abuse and/or No No neglect since last visit Have you been in the hospital since your No No last visit? Has dressing in place as prescribed Yes No Has compression in place as prescribed No N/A Has offloadiing in place as prescribed No N/A Experienced any changes in pain level or No No management Left Footwear Removable Cast Walker/Walking Boot Right Footwear Regular Shoe Pain Scale: 0-10 Numeric Is Patient Pain Free? Yes - Nurse 1 - General Ulcer Measurement Start: 08/22/21 13:05 Freq: Status: Active Protocol: Activity Type Activity Date Activity User E-Sign Co-Sign Detail Recorded Client Recorded Date Recorded By Document 08/22/21 13:05 RB [id number] 08/22/21 13:10 RB Document 09/05/21 13:16 AK [id number] 09/05/21 13:19 AK 08/22/21 09/05/21 13:05 13:16 Wound Center Nurse 1 #20- R BRYANT -Combined with other wound No No -Current Size (cm) - Length 2.3 1 -Current Size (cm) - Width 1.3 0.7 -Current Size (cm) - Depth 0.1 0.1 -Total Square Cm 2.99 0.7 -Photo Taken No -Epithelialization None Present -Tunneling No No -Undermining/Tunneling No No -Circular Undermining No No -Change in Wound Grade/Stage No -Exudate Amt Medium Medium -Exudate Type Serosanguineous Serosanguineous -Wound Margin Thickened Distinct, Outline Attached -Granulation Amt Medium (34-66%) None Present (0 %) -Granulation Quality [place] N/A -Slough/Fibrin Yes No -Necrosis Amt Small (1-33%) Small (1-33%) -Necrotic Tissue Type Adherent Slough Adherent Slough -Structure Exposed N/A N/A -Texture (Maria M-wound Skin Appearance) Assessed No Abnormality, Assessed -Moisture (Maria M-wound Skin Appearance) Assessed No Abnormality, Assessed -Color (Maria M-wound Skin Appearance) Assessed No Abnormality, Assessed -Temperature (Maria M-wound Skin No Abnormality No Abnormality Appearance) (Pt Warm) (Pt Warm) -Tenderness on Palpation (Maria M-wound No No Skin Appearance) -Ulcer Cleansing Wound Cleanser Rinsed/ Irrigated with Saline -Foul Odor after Cleansing No No -Anesthetic Used 5% Lidocaine 4% Lidocaine Gel Solution #13 LEFT MEDIAL PLANTAR -Combined with other wound No No -Current Size (cm) - Length 2.6 3 -Current Size (cm) - Width 2.3 2.6 -Current Size (cm) - Depth 0.4 0.3 -Total Square Cm 5.98 7.8 -Photo Taken No -Epithelialization Small 1-33% -Tunneling No No -Undermining/Tunneling No No -Circular Undermining No No -Exudate Amt Medium Medium -Exudate Type Serosanguineous Serosanguineous -Wound Margin Thickened Thickened & Rolled Under -Granulation Amt Medium (34-66%) Large (67-100%) -Granulation Quality [place],Red -Slough/Fibrin Yes Yes -Necrosis Amt Small (1-33%) Medium (34-66%) -Necrotic Tissue Type Adherent Slough Adherent Slough -Structure Exposed N/A N/A -Texture (Maria M-wound Skin Appearance) Callus Assessed,Callus -Moisture (Maria M-wound Skin Appearance) Assessed Assessed,Dry/ Scaly -Color (Maria M-wound Skin Appearance) Assessed Assessed -Temperature (Maria M-wound Skin No Abnormality No Abnormality Appearance) (Pt Warm) (Pt Warm) -Tenderness on Palpation (Maria M-wound No No Skin Appearance) -Ulcer Cleansing Wound Cleanser Rinsed/ Irrigated with Saline -Foul Odor after Cleansing No No -Anesthetic Used 5% Lidocaine 4% Lidocaine Gel Solution Lower Limb Edema Present Yes Right Calf (cm) 45 Right Ankle (cm) 25 Left Calf (cm) 45.4 Left Ankle (cm) 27.6 WC - Nurse 2 - General Ulcer CM Notes Start: 08/22/21 13:05 Freq: Status: Active Protocol: Activity Type Activity Date Activity User E-Sign Co-Sign Detail Recorded Client Recorded Date Recorded By Document 08/22/21 13:20 [id number] 08/22/21 13:28 Document 09/05/21 13:18 [id number] 09/05/21 13:21 08/22/21 09/05/21 13:20 13:18 Wound Center Nurse 2 #20- R BRYANT -Time 13:21 13:18 -Correct Patient Yes Yes -Correct Side, Site, Position Yes Yes -Correct Procedure Yes Yes -Procedure Performed Yes Yes -Type of Procedure Debridement Debridement -Clinical Debridement Subcutaneous Subcutaneous -Tissue Removed Subcutaneous Subcutaneous -Post Debridement (cm) - Length 2.5 1.0 -Post Debridement (cm) - Width 0.5 0.6 -Post Debridement (cm) - Depth 0.2 0.1 -Total Square (Post) (cm) 1.25 0.60 -Area of Debridement (cm) - Length 2.5 1.0 -Area of Debridement (cm) - Width 0.5 0.6 -Total Square (Area) (cm) 1.25 0.60 -Tunneling No No -Undermining/Tunneling No No -Circular Undermining No No -Wound/Ulcer Outcome Not Healed Not Healed -Ulcer Cleansing Rinsed/ Rinsed/ Irrigated with Irrigated with Saline Saline -Foul Odor after Cleansing No No -Bioengineered Tissue No No -Bleeding Controlled with Pressure Pressure -Offloading Yes No -Type of Offloading Camwalker -Treatment Response Procedure Procedure Tolerated Well Tolerated Well -Debridement - Subq, 1st 20sq cm Yes No #13 LEFT MEDIAL PLANTAR -Time 13:21 13:19 -Correct Patient Yes Yes -Correct Side, Site, Position Yes Yes -Correct Procedure Yes Yes -Procedure Performed Yes Yes -Type of Procedure Debridement Debridement -Clinical Debridement Subcutaneous Subcutaneous -Tissue Removed Subcutaneous Subcutaneous -Post Debridement (cm) - Length 3.0 2.5 -Post Debridement (cm) - Width 2.5 2.9 -Post Debridement (cm) - Depth 0.2 0.4 -Total Square (Post) (cm) 7.50 7.25 -Area of Debridement (cm) - Length 3.0 2.5 -Area of Debridement (cm) - Width 2.5 2.9 -Total Square (Area) (cm) 7.50 7.25 -Tunneling No No -Undermining/Tunneling No No -Circular Undermining No No -Wound/Ulcer Outcome Not Healed Not Healed -Ulcer Cleansing Rinsed/ Rinsed/ Irrigated with Irrigated with Saline Saline -Foul Odor after Cleansing No No -Bioengineered Tissue No No -Bleeding Controlled with Pressure Pressure -Offloading Yes Yes -Type of Offloading Camwalker Surgical Shoe -Treatment Response Procedure Procedure Tolerated Well Tolerated Well -Debridement - Subq, 1st 20sq cm No Yes Pain Scale: 0-10 Numeric Is Patient Pain Free? Yes Yes WC - Nurse 3 - General Ulcer D/C NN Start: 08/22/21 13:05 Freq: Status: Active Protocol: Activity Type Activity Date Activity User E-Sign Co-Sign Detail Recorded Client Recorded Date Recorded By Document 08/22/21 13:32 [facility] [id number] 08/22/21 13:41 [facility] Document 09/05/21 13:46 RB [id number] 09/05/21 13:48 RB 08/22/21 09/05/21 13:32 13:46 Wound Care Nurse 3 #20- R BRYANT -Ulcer Cleansing Wound Cleanser -Primary Dressing Applied C Hydrogel ($) Aquacel AG 4x4 -Other Dressing drsg per dl candy decorator -Primary Dressing Covered/Secured with Dry Gauze & Dry Gauze,Dry Roll Gauze, Gauze & Roll Secured with Gauze,Secured Tape with Tape -Aquacel AG 4x4 1 #13 LEFT MEDIAL PLANTAR -Ulcer Cleansing Rinsed/ Irrigated with Saline -Foul Odor after Cleansing No -Primary Dressing Applied Aquacel AG 4x4 -Primary Dressing Covered/Secured with Dry Gauze & Roll Gauze, Secured with Tape -Other Covering drsg per dl candy decorator -Aquacel AG 4x4 1 Right -Tubular Bandage Single Layer -Size of Tubigrip Used Size E -Size E ($) 1 Left -Tubular Bandage Single Layer -Size of Tubigrip Used Size E -Size E ($) 1 Treatment Response Procedure Procedure Tolerated Well Tolerated Well Pain Scale: 0-10 Numeric Is Patient Pain Free? Yes Yes WC - Visit Discharge Discharge Condition Stable Stable Ambulatory Status Ambulatory, Ambulatory, Walker Walker Transportation Private Auto Medication Reconcilliation completed & No provided to patient/care provider Clinical Summary of Care Provided Yes Notes: RLE ulcers adaptic and hydrogel applied. 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: CODE(S): L97.912 - Non-pressure chronic ulcer of unspecified part of right lower leg with fat layer exposed (2) Non-pressure chronic ulcer of other part of left foot with fat layer exposed: CODE(S): L97.522 - Non-pressure chronic ulcer of other part of left foot with fat layer exposed (3) Type 2 diabetes mellitus with diabetic polyneuropathy: CODE(S): E11.42 - Type 2 diabetes mellitus with diabetic polyneuropathy QUALIFIERS: 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 Subcutaneous excisional debridement was performed as noted in the clinical panel to the left foot and right leg. Edema noted and has been addressed. To elevate and reduce salt intake. To continue with Tubigrip compression garments. To change left foot ulcer daily with hydrogel and gauze. He completed a course of advanced wound healing product, epi fix to the left foot and notable improvement is seen. There are some devitalized tissue and I do not recommend application of cast. His callus sites to right subfirst metatarsal head and left periulcer were debrided with 15 blade and tissue nipper without incident. He was advised to apply moisturizing cream. I recommend callus debridement by a professional due to his class findings and neuropathic status. This is not safe for him to perform this on his own. The sites are considered preulcerative lesions and were debrided to prevent additional ulcer formation. I would like him to wash this daily with soap and water the left foot. He is reassured no local signs of infection are noted however these are precautions to prevent further devitalization or bacterial colonization. He has a surgical offloading shoe at home. To offload left foot ulcer with Cam walker offloading Plastizote liner. The offloading pocket appears appropriately aligned to take pressure off of the ulcer site now. To use a walker until his wheelchair arrives. I discussed the need for serious offloading for limb salvage purposes. He has tried various shoes and walking boots. He has struggled with the use of such as a walker of a knee roller and has impaired gait. An electric power wheelchair (extra width-heavy duty) is also an option and at this time I recommend this. Per the patient, this was recently approved he was advised to proceed forward with getting the device to ensure he is able to offload. Anticipated arrival time is four weeks. He also recently installed a ramp at his home to accommodate home entry. His noninvasive vascular studies were reviewed from 05-04-2020 which were normal and intervention was previously not recommended. Urine he had bilateral arterial duplex and was advised to follow-up 1 year for updated exam. I reviewed Dr. Bonilla's note from June 14, 2020. To continue to work on decreasing glucose levels. He has a history of hyperglycemia. His last A1c was 8.8% in October 2020. To continue follow-up with primary care physician. To continue to follow-up with nutritional services. To continue to follow-up as advised. It is noted he is eating a limited amount of whole foods; I recommend starting with at least 5-10 each day. Some examples were provided. He is currently making adjustments with his nutritional habits. He also follows up with economic historian, Dr. Arteaga, who is working with him to reduce his hemoglobin A1c with medication and behavioral changes. He started a new medication recently to better control his glucose levels he reports his home glucose levels have been decreasing. Smoking cessation was discussed in detail and he was advised on the healing impairment associated with this. To continue with his smoking cessation program. He denies current tobacco use. I also recommend discontinuation of nicotine products for this also contributes to small vessel contraction. The following options exist: Proceeding with a palliative wound care plan which he follows up every 2 to 4 weeks and the goal is to keep the ulcers noninfected and stable, below-knee amputation, revision transmetatarsal amputation with rotational skin flap. Prognosis is guarded with ongoing glucose elevation and inability to comply with nonweightbearing standards. He is hopeful that wheelchair with aid offloading goals. I answered all of his questions today. To return to clinic in 2 weeks with physician, or call sooner if questions, concerns, or progressive worsening. Note: [employer] speech recognition housesmith software was used to create portions of this document. Sound-alike and misspelled words, as well as other housesmith errors may be contained in the documentation.
== END 2021-09-21 23:59 ==
LOC: WC 13:00
PROVIDERS: PCP Family Medicine Geriatric Medicine; Referring Provider Podiatrist; Visit Provider Podiatrist
DX: E11.621 Type 2 diabetes mellitus with foot ulcer (principal); L97.522 Non-pressure chronic ulcer of other part of left foot with fat layer exposed; L97.912 Non-pressure chronic ulcer of unspecified part of right lower leg with fat layer exposed; E11.42 Type 2 diabetes mellitus with diabetic polyneuropathy; R53.81 Other malaise; L84 Corns and callosities; R60.0 Localized edema; Z79.4 Long term (current) use of insulin
CPT/HCPCS: 11042

== ENCOUNTER 2021-09-24 10:22 | Emergency (ER) | payer MEDICARE, MEDICAID, SELFPAY ==
[2021-09-24 10:23] VITALS: BP 111/91; PULSE 84; RESP 16; TEMP 36.6; O2SAT 97; BMI 47.2
[2021-09-24 10:31] LABS: Bedside Glucose 58 mg/dL (70-110)
--- NOTE | 2021-09-24 10:33 | EKG12_ITS ---
Test Reason : Blood Pressure : / mmHG Vent. Rate : 071 BPM Atrial Rate : 071 BPM P-R Int : 204 ms QRS Dur : 112 ms QT Int : 406 ms P-R-T Axes : 049 056 064 degrees QTc Int : 441 ms Normal sinus rhythm Normal ECG Confirmed by EMMA VACA, JANE ([id number]), order editor PHUONG DIANE ([id number]) on 09/26/2021 9:48:29 AM Referred By: CHE/CESAR Confirmed By:JANE CARTER MD
--- NOTE | 2021-09-24 10:34 | EDS_ITS ---
HPI History of Present Illness Chief Complaint: Hypoglycemia Narrative Narrative: Patient states he has had hypoglycemic episodes since last night associated with getting weak in the knees and collapsing to the floor or ground, each time with no injury. EMS was called the first 2, once in his driveway while walking back from taking out the garbage, once at 3 AM inside of his house, and again this morning around 9-10 AM in his house. He denies any recent illness or injury including these falls. He states the other 2 times a day gave him something to eat and drink, and he stayed home. He states the only thing different he can think of is that he started Trulicity around 4 or 5 weeks ago, in addition to his regular insulin dose. He states his blood sugars were way off before this and have been low on more occasions than before since starting this. He had a partial left foot amputation recently but states it has been doing well. [facility] Medical History (Updated 09/24/21 @ 12:[address] Khari Zaman MD) BPH (benign prostatic hyperplasia) Erectile dysfunction HTN (hypertension) Hyperlipidemia Hypokalemia Neuropathic pain Obesity Sleep apnea Tobacco abuse Type 2 diabetes mellitus Home Medications calcium carbonate 500 mg PO DAILY 06/23/17 [History Last Taken 06/23/17] multivitamin 1 ea PO DAILY 06/23/17 [History Last Taken 06/23/17] atorvastatin 40 mg tablet 40 mg PO DAILY 10/18/19 [History Last Taken 08/31/20 22:39] bupropion HCl 150 mg 24 hr tablet, extended release 150 mg PO BID tab 10/18/19 [History Last Taken 09/01/20 08:27] tamsulosin 0.4 mg capsule 0.4 mg PO DAILY@1730 cap 10/18/19 [History Last Taken 08/31/20 17:28] gabapentin 300 mg capsule 600 mg PO TIDCM cap 04/24/20 [History Last Taken 09/01/20 13:15] aspirin 81 mg tablet,delayed release 81 mg PO DAILY tab 07/28/20 [History Last Taken Unknown] lancets 09/01/20 [History Last Taken Unknown] acetaminophen 1,000 mg PO Q6H PRN tab 10/03/20 [Rx Last Taken Unknown] nicotine 21 mg TD DAILY #30 patch 10/03/20 [Rx Last Taken Unknown] tramadol 50 mg PO Q6H PRN PRN #28 tab 10/03/20 [Rx Last Taken Unknown] gabapentin 600 mg tablet 600 mg PO TID tab 10/31/20 [History Last Taken Unknown] naproxen 500 mg tablet ea PO 10/31/20 [History Last Taken Unknown] blood-glucose transmitter #1 ea 11/30/20 [Rx Last Taken Unknown] Humulin R U-500 (Conc) Kwikpen 500 unit/mL (3 mL) subcutaneous See Rx Instructions SUBCUT TID #27 ml NS 07/09/21 [Rx Last Taken Unknown] dulaglutide 0.75 mg/0.5 mL subcutaneous pen injector 0.75 mg SUBCUT QWEEK #2 ml 07/26/21 [Rx Last Taken Unknown] blood sugar diagnostic #100 ea 08/06/21 [Rx Last Taken Unknown] lisinopril 40 mg tablet 40 mg PO DAILY #90 tab 08/06/21 [Rx Last Taken Unknown] flash glucose sensor #2 ea 08/23/21 [Rx Last Taken Unknown] Farxiga 10 mg tablet 10 mg PO DAILY #90 tab NS 09/03/21 [Rx Last Taken Unknown] Allergy/AdvReac Type Severity Reaction Status Date / Time Sulfa (Sulfonamide Allergy Rash Verified 09/24/21 10:23 Antibiotics) Family History Father Myocardial infarction Heart disease Mother Kidney disease Diabetes Sister Asthma Breast cancer Hypertension Brother Alcoholism Melanoma Surgical History History of ankle surgery History of deviated nasal septum History of hernia repair History of oral surgery History of transmetatarsal amputation of left foot History of vasectomy Social History Smoking Status: Heavy Smoker (>10/day) alcohol intake: never substance use type: does not use what type of physical activity do you participate in: none ROS ROS ED Constitutional Constitutional ED: Denies chills or fever(s) Eyes Eyes: Denies change in vision or diplopia ENT ENT ED: Denies rhinorrhea or sore throat Cardiovascular Cardiovascular: Denies chest pain or palpitations Respiratory/Chest Respiratory/Chest: Denies cough or dyspnea Gastrointestinal Gastrointestinal: Denies abdominal pain, diarrhea, nausea or vomiting Genitourinary Genitourinary ED: Denies dysuria or hematuria Musculoskeletal Musculoskeletal: Reports as per HPI; Denies back pain or neck pain Integumentary Denies abscess or rash Neurologic Neurologic: Reports paresthesias RLE (Chronic distally due to peripheral neuropathy) and LLE (Chronic distally due to peripheral neuropathy); Denies headache(s) or weakness Psychiatric Psychiatric: Denies anxiety or suicidal thoughts EXAM Physical Exam Const Vital Signs: 09/24/21 10:23 09/24/21 10:56 09/24/21 12:28 Temperature 98 F Temperature Source Oral Pulse Rate 84 83 69 Respiratory Rate 16 18 19 H Blood Pressure 111/91 H 120/77 158/117 H Blood Pressure Mean 97 91 130 Pulse Ox 97 96 96 Oxygen Delivery Method Room Air Room Air Nasal Cannula Oxygen Flow Rate (L/min) 2 Positive well nourished, well developed and obese General Appearance ED: well developed and NAD Nutritional Appearance: obese HEENT Reports moist mucous membranes normocephalic and atraumatic Eyes PERRL and EOMs intact bilaterally Neck full ROM and supple Resp normal respiratory effort and clear to auscultation bilaterally Cardio regular rate, regular rhythm and no murmurs GI non-tender and non-distended Auscultation: normoactive bowel sounds Palpation: soft Back/Spine no CVA tenderness General Back: other FROM Extremity normal to inspection Extremity Narrative: Left lower extremity compression stocking in place along with bandage around left foot and ankle General Extremety ED: Negative for edema, pulses abnormal or tenderness General Extremity: Negative for edema or pulses abnormal Neuro oriented x3, CN's II-XII intact bilaterally and no sensory deficits noted Sensorium / Orientation: awake and alert Motor Exam: strength 5/5 throughout Skin no rashes or lesions noted and no wounds MDM MDM MDM Narrative Medical decision making narrative: Other than a mild nonspecific leukocytosis the patient's labs are within normal limits. He was given something to eat, we rechecked his blood sugar and it was over 100, he is asymptomatic and wants to leave. He refuses the urinalysis and does not want to wait for him to be able to urinate, he states he does not currently need to. 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 Banuelos, and also discussed the fact that he states he has been without his Farxiga for the past 2 weeks because he is out of it. She recommends decreasing his insulin dose by 25 units per dose, he uses it 3 times daily, and she will contact him tomorrow. Lab Data Attestation: I reviewed the patient's lab results. Labs: Laboratory Results - last 24 hr 09/24/21 09/24/21 09/24/21 10:26 11:20 11:20 WBC 12.7 H RBC 5.35 Hgb 14.3 Hct 46.2 MCV 86.4 MCH 26.7 L MCHC 31.0 L RDW Std Deviation 52.9 H RDW Coeff of Fatuma 16.8 H Plt Count 247 MPV 10.2 Immature Gran % (Auto) 1.700 H Neut % (Auto) 82.2 H Lymph % (Auto) 7.6 L [place] % (Auto) 7.1 Eos % (Auto) 0.8 Baso % (Auto) 0.6 Absolute Neuts (auto) 10.5 H Absolute Lymphs (auto) 0.96 Nucleated RBC % 0 Sodium 140 Potassium 3.7 Chloride 106 Carbon Dioxide 27.0 Anion Gap 7 BUN 12 Creatinine 0.77 Estim Creat Clear Calc 111.20 Est GFR (MDRD) Af Amer 131 Est GFR (MDRD) Non-Af 108 BUN/Creatinine Ratio 15.7 Glucose 102 Calcium 9.1 Troponin I High Sens 13 POC Glucose 58 L EKG Initial EKG: Attestation: I personally reviewed and interpreted this EKG as follows: Interpretation: Sinus Rhythm and No Acute Injury Pattern Comments: 71; normal EKG Discharge Plan Triage Chief Complaint: Hypoglycemia ED Provider: Khari Zaman Dx/Rx/DC Orders Clinical Impression: Hypoglycemia due to type 2 diabetes mellitus, Accidental fall Instructions: ED Diabetic Insulin Reaction Prescriptions: No Action tamsulosin 0.4 mg capsule 0.4 mg PO DAILY@1730 RF: 0 atorvastatin 40 mg tablet 40 mg PO DAILY RF: 0 bupropion HCl 150 mg tablet extended release 24 hr 150 mg PO BID RF: 0 aspirin [Adult Low Dose Aspirin] 81 mg tablet,delayed release (DR/EC) 81 mg PO DAILY RF: 0 naproxen 500 mg tablet PO RF: 0 gabapentin 600 mg tablet 600 mg PO TID RF: 0 Trulicity 0.75 mg/0.5 mL pen injector 0.75 mg subcut QWEEK Qty: 2 RF: 3 multivitamin 1 EACH tablet 1 ea PO DAILY RF: 0 calcium carbonate 500 MG tablet 500 mg PO DAILY RF: 0 gabapentin 300 mg capsule 600 mg PO TIDCM RF: 0 (DME) lancets 1 EACH misc See Rx Instructions .Route .MEDSUPPLY RF: 0 tramadol 50 MG tablet 50 mg PO Q6H PRN PRN (Reason: Pain Score 6-10) Qty: 28 RF: 0 acetaminophen 500 MG tablet 1,000 mg PO Q6H PRN (Reason: Pain Score 1-5) RF: 0 nicotine 21 MG patch 21 mg TD DAILY Qty: 30 RF: 0 (DME) [employer] G6 Transmitter Device See Rx Instructions .ROUTE .MEDSUPPLY Qty: 1 RF: 1 Humulin R U-500 (Conc) Kwikpen 500 unit/mL (3 mL) insulin pen See Rx Instructions subcut TID Qty: 27 RF: 5 (DME) OneTouch Verio test strips Strip See Rx Instructions .ROUTE .MEDSUPPLY Qty: 100 RF: 8 lisinopril 40 mg tablet 40 mg PO DAILY Qty: 90 RF: 1 (DME) FreeStyle Heather 2 Sensor Kit See Rx Instructions .ROUTE .MEDSUPPLY Qty: 2 RF: 6 Farxiga 10 mg tablet 10 mg PO DAILY Qty: 90 RF: 1 Primary Care Provider: Jaime Meyer Chi Referrals: Juan Arteaga MD [STAFF PHYSICIAN] - 1 Day Jaime Meyer Chi, MD [Primary Care Provider] - As soon as possible Activity Restrictions/Additional Instructions: For now decrease each of your insulin doses by [address] Arteaga will call you tomorrow, you can get a hold of her overnight if needed for anything. Disposition Disposition: Home, Self Care
[2021-09-24 10:56] VITALS: BP 120/77; PULSE 83; RESP 18; O2SAT 96
[2021-09-24 11:29] LABS: Absolute Lymphocyte Count 0.96 X10^3/uL (0.83-4.51); Absolute Neutrophil Count 10.5 X10^3/uL (2.0-7.7); Basophil# 0.07 X10^3/uL; Basophil% 0.6 % (0-1); Eosinophils% 0.8 % (0-5); Hematocrit 46.2 % (40-54); Hemoglobin 14.3 g/dL (13.0-16.5); Lymphocyte # 0.96 X10^3/ul (0.83-4.51); Lymphocyte % 7.6 % (19-41); Mean Corpuscular Hgb 26.7 pg (27.0-32.0); Mean Corpuscular Volume 86.4 fL (80-94); Mean Platelet Vol. 10.2 fl (6.2-12.0); Monocyte% 7.1 % (0-10); NRBC Flagged by Analyzer 0 % (0-5); Neutrophil # 10.46 X10^3/uL (2.7-7.7); Neutrophil % 82.2 % (47-70); Platelet Count 247 K/mm3 (150-450); RBC Distribution Width CV 16.8 % (11.6-14.6); RBC Distribution Width SD 52.9 fl (35.1-43.9); Red Blood Count 5.35 M/mm3 (4.6-6.2); White Blood Count 12.7 K/mm3 (4.4-11.0)
[2021-09-24 11:46] LABS: Anion Gap 7 (5-15); BUN 12 mg/dL (7-18); BUN/Creat Ratio 15.7 RATIO (10-20); Calcium,Total 9.1 mg/dL (8.5-10.1); Chloride 106 mmol/L (98-107); Creatinine, Serum 0.77 mg/dL (0.70-1.30); EST Glomerular Filtration Rate 108 mL/min (>60); Est Glom Filt Rate - Afr Amer 131 mL/min (>60); Glucose 102 mg/dL (74-106); Potassium 3.7 mmol/L (3.5-5.1); Sodium Level 140 mmol/L (136-145); Troponin-I HS 13 pg/mL (3.0-78.0)
[2021-09-24 12:28] VITALS: BP 158/117; PULSE 69; RESP 19; O2SAT 96
--- NOTE | 2021-09-24 13:04 | NURSING ---
DR KING SKINNER
[2021-09-24 13:47] VITALS: BP 162/78; PULSE 77; RESP 16; O2SAT 97; O2SAT 98
[2021-09-24 13:51] LABS: Bedside Glucose 190 mg/dL (70-110)
== END 2021-09-24 13:49 | disposition home or self-care (01) ==
PROVIDERS: Emergency Provider Emergency Medicine; PCP Family Medicine Geriatric Medicine; Visit Provider Emergency Medicine
DX: E11.649 Type 2 diabetes mellitus with hypoglycemia without coma (principal); E11.40 Type 2 diabetes mellitus with diabetic neuropathy, unspecified; I10 Essential (primary) hypertension; E78.5 Hyperlipidemia, unspecified; F17.210 Nicotine dependence, cigarettes, uncomplicated; G47.30 Sleep apnea, unspecified; W19.XXXA Unspecified fall, initial encounter; E66.9 Obesity, unspecified
CPT/HCPCS: 80048; 82962; 84484; 85025; 93005; 99284; A4216

== ENCOUNTER 2021-10-10 13:45 | Outpatient (RCR) | payer MEDICARE, MEDICAID, SELFPAY ==
[2021-09-22 00:22] VITALS: BP 178/69; PULSE 66; RESP 18; TEMP 36.7; BMI 48.5
[2021-10-10 13:48] VITALS: BP 153/68; PULSE 91; RESP 20; TEMP 36.1; BMI 48.5
--- NOTE | 2021-10-10 15:51 | PN.PCM_ITS ---
History of Present Illness Date of Service: 10/10/21 Chief Complaint: Diabetic left foot ulceration, [place] Grade 3 right leg ulcer History of Wound: This 66-year-old male with multiple comorbidities was seen today for left foot ulcer that is very chronic. He was also seen for right leg ulcer. He denies diarrhea, fever, chill, nausea, vomiting. He denies redness or odor. He denies calf pain. He has debility and difficulty walking. He was trying to get approved for an electric wheelchair in which he was successful. However the parts are on back order and this is expected to arrive in Oct 2021. He was sick last week and was unable to make his appointment. He is still fatigued and is participating in a minimal manner today. He does have lower extremity swelling that is slightly increased from last visit approximately 1 month ago. Since he has not been seen for a while, he has some callus formation that is excessive to the right ball of the foot and also around the left foot ulcer. He has diabetic Goldbond lotion and reports he is unable to apply this on his own. He has home health assistance when they are doing his dressing change. Progress of Wound: Stable bilateral Objective Data Objective Data Vital Signs: Vital Signs Temp Pulse Resp BP 96.9 F L 91 20 H 153/68 H 10/10/21 13:48 10/10/21 13:48 10/10/21 13:48 10/10/21 13:48 Oxygen Delivery Method Room Air Weight: 147.418 kg Body Mass Index (BMI) 48.5 Physical Exam Extremity Extremity Narrative: No calf tenderness Diminished pulses Left transmetatarsal amputation Muscle wasting noted Skin Skin Narrative: no purulence, no streaking, no odor, no infection. Bilateral lower extremity skin is atrophic and hairless. skin discontinuity right central anterior leg with granular base. Callus and fissure plantar medial first metatarsal head without ulcer formation noted upon debridement. Left plantar foot ulcer has improvement in healthy granular base tissue without devitalized central location. There is excessive callus noted. Left foot ulcer site. No maceration, necrosis or infection. Neuro Neuro Narrative: lack of normal epicritic sensation via light touch is consistent with neuropathy status Debridement Note Debridement Note Wound debrided: Right leg, left foot Wound Grade/Stage: 1, 1 Type of Debridement: Excisional debridement Anesthesia Used: 4% Lidocaine Solution Depth: in the subcutaneous layer Percentage of wound debrided: 100 Instrument Used: #15 blade Tissue Removed: fibrous, devitalized subcutaneous, biofilm, slough Severity: Fat Layer Exposed Amount of bleeding with debridement: Mild Bleeding Controlled with: Pressure Patient tolerated procedure: Patient tolerated procedure well Post-Debridement Measurements and Additional Note: Post-Debridement Measurements/Treatment - Nurse 1 - General Ulcer Assessment Start: 10/10/21 13:48 Freq: Status: Active Protocol: MARIA ESTHER Activity Type Activity Date Activity User E-Sign Co-Sign Detail Recorded Client Recorded Date Recorded By Document 10/10/21 13:48 [facility] [id number] 10/10/21 13:55 [facility] 10/10/21 13:48 WC - Today's Visit Information Type of service Follow-up Visit (Physician/TRAFFIC SAFETY ADMINISTRATOR ) Arrival Mode Ambulatory, Walker Transfer Assistance None Patient Identification Verified (Name & Yes ) Patient Requires Transmission-Based No Precautions Height and Weight Body Mass Index (BMI) 48.5 BMI Classification Obese Vital Signs Temperature (97.8 F-99.1 F) 96.9 F L Temperature Source Temporal Pulse Rate (60-100) 91 Pulse Location Monitor Respiratory Rate (12-18) 20 H Respiratory rate source Observation Oxygen Delivery Method Room Air Blood Pressure (90/60-120/80) 153/68 H Blood Pressure Mean (mm Hg) 96 Source Monitor Position Sitting Blood Pressure Location Left Arm History Since Last Visit- (Skip if this is Patient's initial visit) Have you changed medications since your No last visit? Any new allergies or adverse reactions No Had a fall/change in ADL's that may No increase risk of falls Signs or symptoms of abuse and/or No neglect since last visit Have you been in the hospital since your No last visit? Has dressing in place as prescribed Yes Has compression in place as prescribed No Has offloadiing in place as prescribed No Experienced any changes in pain level or No management Left Footwear Regular Shoe Right Footwear Regular Shoe Pain Scale: 0-10 Numeric Is Patient Pain Free? Yes [facility] Nurse 1 - General Ulcer Measurement Start: 10/10/21 13:48 Freq: Status: Active Protocol: Activity Type Activity Date Activity User E-Sign Co-Sign Detail Recorded Client Recorded Date Recorded By Document 10/10/21 13:48 [facility] [id number] 10/10/21 13:55 [facility] 10/10/21 13:48 Wound Center Nurse 1 #20- R BRYANT -Combined with other wound No -Current Size (cm) - Length 9.9 -Current Size (cm) - Width 3.5 -Current Size (cm) - Depth 0.1 -Total Square Cm 34.65 -Date of Last Picture (Recall this 10/10/21 field) -Photo Taken Yes -Epithelialization None Present -Tunneling No -Undermining/Tunneling No -Circular Undermining No -Exudate Amt Medium -Exudate Type Serosanguineous -Wound Margin Flat & Intact -Granulation Amt Medium (34-66%) -Granulation Quality Red -Slough/Fibrin Yes -Necrosis Amt Medium (34-66%) -Necrotic Tissue Type Adherent Slough -Texture (Maria M-wound Skin Appearance) Assessed, Scarring -Moisture (Maria M-wound Skin Appearance) Assessed -Color (Maria M-wound Skin Appearance) Assessed -Temperature (Maria M-wound Skin No Abnormality Appearance) (Pt Warm) -Tenderness on Palpation (Maria M-wound No Skin Appearance) -Ulcer Cleansing Rinsed/ Irrigated with Saline -Foul Odor after Cleansing No -Anesthetic Used 4% Lidocaine Solution #13 LEFT MEDIAL PLANTAR -Combined with other wound No -Current Size (cm) - Length 2.8 -Current Size (cm) - Width 2.6 -Current Size (cm) - Depth 0.3 -Total Square Cm 7.28 -Date of Last Picture (Recall this 10/10/21 field) -Photo Taken Yes -Epithelialization None Present -Tunneling No -Undermining/Tunneling No -Circular Undermining No -Exudate Amt Medium -Exudate Type Serosanguineous -Wound Margin Distinct, Outline Attached -Granulation Amt Large (67-100%) -Granulation Quality Red -Slough/Fibrin No -Necrosis Amt None Present (0 %) -Texture (Maria M-wound Skin Appearance) Assessed,Callus ,Scarring -Moisture (Maria M-wound Skin Appearance) Assessed,Dry/ Scaly -Color (Maria M-wound Skin Appearance) Assessed -Temperature (Maria M-wound Skin No Abnormality Appearance) (Pt Warm) -Tenderness on Palpation (Maria M-wound No Skin Appearance) -Ulcer Cleansing Rinsed/ Irrigated with Saline -Foul Odor after Cleansing No -Anesthetic Used 4% Lidocaine Solution Lower Limb Edema Present Yes Right Calf (cm) 42 Right Ankle (cm) 25 Left Calf (cm) 43.4 Left Ankle (cm) 26 - Nurse 2 - General Ulcer CM Notes Start: 10/10/21 13:48 Freq: Status: Active Protocol: Activity Type Activity Date Activity User E-Sign Co-Sign Detail Recorded Client Recorded Date Recorded By Document 10/10/21 14:01 [id number] 10/10/21 14:13 CASSY 10/10/21 14:01 Wound Center Nurse 2 #20- R BRYANT -Time 14:01 -Correct Patient Yes -Correct Side, Site, Position Yes -Correct Procedure Yes -Procedure Performed Yes -Type of Procedure Debridement -Clinical Debridement Subcutaneous -Tissue Removed Subcutaneous -Post Debridement (cm) - Length 10.8 -Post Debridement (cm) - Width 3.5 -Post Debridement (cm) - Depth 0.1 -Total Square (Post) (cm) 37.80 -Area of Debridement (cm) - Length 10.8 -Area of Debridement (cm) - Width 3.5 -Total Square (Area) (cm) 37.80 -Tunneling No -Undermining/Tunneling No -Circular Undermining No -Wound/Ulcer Outcome Not Healed -Ulcer Cleansing Rinsed/ Irrigated with Saline -Foul Odor after Cleansing No -Bioengineered Tissue No -Bleeding Controlled with Pressure -Offloading No -Treatment Response Procedure Tolerated Well -Debridement - Subq, 1st 20sq cm Yes -Debridement, SubQ, ea addt'l 20sq cm 2 or part thereof #13 LEFT MEDIAL PLANTAR -Time 14:02 -Correct Patient Yes -Correct Side, Site, Position Yes -Correct Procedure Yes -Procedure Performed Yes -Type of Procedure Debridement -Clinical Debridement Subcutaneous -Tissue Removed Subcutaneous -Post Debridement (cm) - Length 2.5 -Post Debridement (cm) - Width 2.8 -Post Debridement (cm) - Depth 0.3 -Total Square (Post) (cm) 7.00 -Area of Debridement (cm) - Length 2.5 -Area of Debridement (cm) - Width 2.8 -Total Square (Area) (cm) 7.00 -Tunneling No -Undermining/Tunneling No -Circular Undermining No -Wound/Ulcer Outcome Not Healed -Ulcer Cleansing Rinsed/ Irrigated with Saline -Foul Odor after Cleansing No -Bioengineered Tissue No -Bleeding Controlled with Pressure -Offloading Yes -Type of Offloading Camwalker -Treatment Response Procedure Tolerated Well -Debridement - Subq, 1st 20sq cm No Pain Scale: 0-10 Numeric Is Patient Pain Free? Yes - Nurse 3 - General Ulcer D/C NN Start: 10/10/21 13:48 Freq: Status: Active Protocol: Activity Type Activity Date Activity User E-Sign Co-Sign Detail Recorded Client Recorded Date Recorded By Document 10/10/21 14:17 [facility] [id number] 10/10/21 14:19 [facility] 10/10/21 14:17 Wound Care Nurse 3 #20- R BRYANT -Ulcer Cleansing Rinsed/ Irrigated with Saline -Foul Odor after Cleansing No -Primary Dressing Applied C Hydrogel ($), NonAdherent Contact Layer -Other Dressing DRSG PER [employer] -Primary Dressing Covered/Secured with Dry Gauze & Roll Gauze, Secured with Tape #13 LEFT MEDIAL PLANTAR -Ulcer Cleansing Rinsed/ Irrigated with Saline -Foul Odor after Cleansing No -Primary Dressing Applied Aquacel AG 4x4 -Primary Dressing Covered/Secured with Dry Gauze & Roll Gauze, Secured with Tape -Other Covering DRSG PER [employer] -Aquacel AG 4x4 1 BLE -Tubular Bandage Single Layer -Size of Tubigrip Used Size E -Size E ($) 2 Treatment Response Procedure Tolerated Well Pain Scale: 0-10 Numeric Is Patient Pain Free? 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: CODE(S): L97.912 - Non-pressure chronic ulcer of unspecified part of right lower leg with fat layer exposed (2) Non-pressure chronic ulcer of other part of left foot with fat layer exposed: CODE(S): L97.522 - Non-pressure chronic ulcer of other part of left foot with fat layer exposed (3) Type 2 diabetes mellitus with diabetic polyneuropathy: CODE(S): E11.42 - Type 2 diabetes mellitus with diabetic polyneuropathy QUALIFIERS: Diabetes mellitus 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 Subcutaneous excisional debrid ement was performed as noted in the clinical panel to the left foot and right leg. Edema noted and has been addressed. To elevate and reduce salt intake. To continue with Tubigrip compression garments. Okay to apply additional Angus wrap during exacerbation. To change left foot ulcer daily with hydrogel and gauze. To change right leg ulcer with hydrogel and Adaptic if needed. It is noted he had prior advanced wound healing product application and total contact cast applications. His callus sites to right subfirst metatarsal head and left periulcer were debrided with 15 blade and tissue nipper without incident. He was advised to apply moisturizing cream; diabetic Goldbond. These are preulcers and he is at risk for developing additional wounds. Home health has been helping him with l otion application on intermittent basis. I recommend routine assistance and he can also apply it on his own with an assistive device such as a tongue depressor or even a toothbrush to help him reach. I would like him to wash this daily with soap and water the left foot. He is reassured no local signs of infection are noted however these are precautions to prevent further devitalization or bacterial colonization. He has a surgical offloading shoe at home. To offload left foot ulcer with Cam walker offloading Plastizote liner. The offloading pocket appears appropriately aligned to take pressure off of the ulcer site now. To use a walker until his wheelchair arrives. I discussed the need for serious offloading for limb salvage purposes. He has tried various shoes and walking boots. He has struggled with the use of such as a walker of a knee roller and has impaired gait. An electric power wheelchair (extra width-heavy duty) is also an option and at this time I recommend this. Per the patient, this was recently approved he was advised to proceed forward with getting the device to ensure he is able to offload. Anticipated arrival time is four weeks. He also recently installed a ramp at his home to accommodate home entry. His noninvasive vascular studies were reviewed from 05-04-2020 which were normal and intervention was previously not recommended. Urine he had bilateral arterial duplex and was advised to follow-up 1 year for updated exam. I reviewed Dr. Bonilla's note from June 14, 2020. To continue to work on decreasing glucose levels. He has a history of h yperglycemia. His last A1c was 8.8% in October 2020. To continue follow-up with primary care physician. To continue to follow-up with nutritional services. To continue to follow-up as advised. It is noted he is eating a limited amount of whole foods; I recommend starting with at least 5-10 each day. Some examples were provided. He is currently making adjustments with his nutritional habits. He also follows up with sap plant maintenance consultant, Dr. Arteaga, who is working with him to reduce his hemoglobin A1c with medication and behavioral changes. He started a new medication recently to better control his glucose levels he reports his home glucose levels have been decreasing. Smoking cessation was discussed in detail and he was advised on the healing impairment associated with this. To continue with his smoking cessation program. He denies current tobacco use. I also recommend discontinuation of nicotine products for this also contributes to small vessel contraction. The following options exist: Proceeding with a palliative wound care plan which he follows up every 2 to 4 weeks and the goal is to keep the ulcers noninfected and stable, below-knee amputation, revision transmetatarsal amputation with rotational skin flap. Prognosis is guarded with ongoing glucose elevation and inability to comply with nonweightbearing standards. He is hopeful that wheelchair with aid offloading goals. I answered all of his questions today. To return to clinic in 2 weeks with physician, or call sooner if questions, concerns, or progressive worsening. Note: [employer] speech recognition business strategy manager software was used to create portions of this document. Sound-alike and misspelled words, as well as other business strategy manager errors may be contained in the documentation. The medical decision making level is low. There is noted low risk of morbidity after considering this treatment plan and diagnostic data. The problems addressed require a low medical decision making level which includes two or more minor problems, a stable chronic illness, or an acute uncomplicated illness or injury.
== END 2021-10-22 23:59 ==
LOC: WC 13:45
PROVIDERS: PCP Family Medicine Geriatric Medicine; Referring Provider Podiatrist; Visit Provider Podiatrist
DX: E11.621 Type 2 diabetes mellitus with foot ulcer (principal); L97.912 Non-pressure chronic ulcer of unspecified part of right lower leg with fat layer exposed; L97.522 Non-pressure chronic ulcer of other part of left foot with fat layer exposed; E11.42 Type 2 diabetes mellitus with diabetic polyneuropathy; R53.81 Other malaise; R60.0 Localized edema; R26.2 Difficulty in walking, not elsewhere classified; L84 Corns and callosities; R23.4 Changes in skin texture
CPT/HCPCS: 11042; 11045

== ENCOUNTER 2021-10-19 16:54 | Observation (INO) | payer MEDICARE, MEDICAID, SELFPAY ==
[2021-10-19] VITALS (7 sets, daily range): BP systolic 128–164; BP diastolic 52–77; PULSE 70–85; RESP 18–22; TEMP 36.4–36.8; O2SAT 96–100; BMI 39.6; BMI 39.9
--- NOTE | 2021-10-19 17:01 | ED.RN ---
Pt BGL reading 52, was given [employer] and crackers prior to being seen by physician. Pt. able to swallow appropriately and is awake and alert at time.
[2021-10-19 18:29] LABS: Absolute Lymphocyte Count 1.16 X10^3/uL (0.83-4.51); Absolute Neutrophil Count 8.1 X10^3/uL (2.0-7.7); Basophil# 0.11 X10^3/uL; Basophil% 1.1 % (0-1); Eosinophil# 0.16 X10^3/uL; Eosinophils% 1.5 % (0-5); Hematocrit 49.2 % (40-54); Lymphocyte # 1.16 X10^3/ul (0.83-4.51); Lymphocyte % 11.2 % (19-41); Mean Corp Hgb Conc 30.5 g/dL (32-36); Mean Corpuscular Hgb 26.8 pg (27.0-32.0); Mean Platelet Vol. 10.3 fl (6.2-12.0); Monocyte# 0.76 X10^3/uL; Monocyte% 7.4 % (0-10); NRBC Flagged by Analyzer 0 % (0-5); Neutrophil # 8.06 X10^3/uL (2.7-7.7); Platelet Count 274 K/mm3 (150-450); RBC Distribution Width CV 16.7 % (11.6-14.6); RBC Distribution Width SD 53.5 fl (35.1-43.9); Red Blood Count 5.59 M/mm3 (4.6-6.2); White Blood Count 10.3 K/mm3 (4.4-11.0)
--- NOTE | 2021-10-19 18:44 | EDS_ITS ---
HPI History of Present Illness Chief Complaint: Hypoglycemia Narrative Narrative: 66-year-old male presenting with hypoglycemic episode. He states he had 3 or 4 these over the last month. He spoke with Dr. Arteaga who did decreasedHis insulin and this has improved the symptoms of hypoglycemic episodes. Today he states he ate breakfast and then did a lot of running around and he was on his way to get something to eat when his blood sugar dropped and he became confused. Patient given IV glucose prior to arrival as his blood sugar was reading low in the field. Patient's alert and awake and feels back to normal on arrival. He denies any headache, chest pain, shortness breath, abdom inal pain, fever, chills. He states he was otherwise normal prior to the hypoglycemic episode. There is no history of any trauma. He did not fall or hit his head. [facility] Medical History BPH (benign prostatic hyperplasia) Erectile dysfunction HTN (hypertension) Hyperlipidemia Hypokalemia Neuropathic pain Obesity Sleep apnea Tobacco abuse Type 2 diabetes mellitus Home Medications calcium carbonate 500 mg PO DAILY 06/23/17 [History Last Taken 06/23/17] multivitamin 1 ea PO DAILY 06/23/17 [History Last Taken 06/23/17] atorvastatin 40 mg tablet 40 mg PO DAILY 10/18/19 [History Last Taken 08/31/20 22:39] bupropion HCl 150 mg 24 hr tablet, extended release 150 mg PO BID tab 10/18/19 [History Last Taken 09/01/20 08:27] tamsulosin 0.4 mg capsule 0.4 mg PO DAILY@1730 cap 10/18/19 [History Last Taken 08/31/20 17:28] gabapentin 300 mg capsule 600 mg PO TIDCM cap 04/24/20 [History Last Taken 09/01/20 13:15] aspirin 81 mg tablet,delayed release 81 mg PO DAILY tab 07/28/20 [History Last Taken Unknown] lancets 09/01/20 [History Last Taken Unknown] acetaminophen 1,000 mg PO Q6H PRN tab 10/03/20 [Rx Last Taken Unknown] nicotine 21 mg TD DAILY #30 patch 10/03/20 [Rx Last Taken Unknown] tramadol 50 mg PO Q6H PRN PRN #28 tab 10/03/20 [Rx Last Taken Unknown] gabapentin 600 mg tablet 600 mg PO TID tab 10/31/20 [History Last Taken Unknown] naproxen 500 mg tablet ea PO 10/31/20 [History Last Taken Unknown] blood-glucose transmitter #1 ea 11/30/20 [Rx Last Taken Unknown] Humulin R U-500 (Conc) Kwikpen 500 unit/mL (3 mL) subcutaneous See Rx Instructions SUBCUT TID #27 ml NS 07/09/21 [Rx Last Taken Unknown] dulaglutide 0.75 mg/0.5 mL subcutaneous pen injector 0.75 mg SUBCUT QWEEK #2 ml 07/26/21 [Rx Last Taken Unknown] blood sugar diagnostic #100 ea 08/06/21 [Rx Last Taken Unknown] lisinopril 40 mg tablet 40 mg PO DAILY #90 tab 08/06/21 [Rx Last Taken Unknown] flash glucose sensor #2 ea 08/23/21 [Rx Last Taken Unknown] Farxiga 10 mg tablet 10 mg PO DAILY #90 tab NS 09/03/21 [Rx Last Taken Unknown] Allergy/AdvReac Type Severity Reaction Status Date / Time Sulfa (Sulfonamide Allergy Rash Verified 09/24/21 10:23 Antibiotics) Family History Father Myocardial infarction Heart disease Mother Kidney disease Diabetes Sister Asthma Breast cancer Hypertension Brother Alcoholism Melanoma Surgical History History of ankle surgery History of deviated nasal septum History of hernia repair History of oral surgery History of transmetatarsal amputation of left foot History of vasectomy Social History Smoking Status: Heavy Smoker (>10/day) alcohol intake: never substance use type: does not use what type of physical activity do you participate in: none ROS ROS ED ROS Narrative Confusion resolved Constitutional Constitutional ED: Denies chills, fever(s) or sweats Eyes Eyes: Denies blurry vision or change in vision ENT ENT ED: Denies ear pain or sore throat Cardiovascular Cardiovascular: Denies chest pain, palpitations or racing heartbeat Respiratory/Chest Respiratory/Chest: Denies cough, dyspnea or sputum Gastrointestinal Gastrointestinal: Denies abdominal pain, constipation, diarrhea, nausea or vomiting Genitourinary Genitourinary ED: Denies dysuria, hematuria or urinary frequency Musculoskeletal Musculoskeletal: Denies arthralgias, myalgias or neck pain Integumentary Denies abscess, Abrasions or rash Neurologic Neurologic: Denies headache(s), paresthesias or weakness Psychiatric Psychiatric: Denies anxiety, depression, suicidal ideation or suicidal thoughts Endocrine Endocrinology: Denies polydipsia or polyuria EXAM Physical Exam Const Vital Signs: 10/19/21 16:55 10/19/21 16:59 10/19/21 18:01 Temperature 97.6 F L Temperature Source Temporal Pulse Rate 72 70 Respiratory Rate 18 Respiratory Effort Normal Respiratory Pattern Normal Blood Pressure 128/52 H Blood Pressure Mean 77 Pulse Ox 98 Oxygen Delivery Method Room Air Positive well nourished, alert and oriented x3 General Appearance ED: Negative for pallor HEENT Reports normocephalic, head/scalp atraumatic and moist mucous membranes Eyes PERRL and EOMs intact bilaterally Neck no lymphadenopathy and supple Chest Wall inspection of chest normal and palpation of chest normal Resp normal respiratory effort and clear to auscultation bilaterally Auscultation: Negative for rales, rhonchi or wheezes Cardio regular rate and regular rhythm GI normal to inspection, nondistended, normoactive bowel sounds and non-distended Auscultation: normoactive bowel sounds Palpation: soft Narrative: Deferred Extremity normal to inspection and full ROM General Extremety ED: Negative for edema or tenderness General Extremity: Negative for edema Neuro oriented x3 and CN's II-XII intact bilaterally Sensorium / Orientation: alert Motor Exam: strength 5/5 throughout Psych mental status grossly normal Attitude: No agitated Skin no rashes or lesions noted and no wounds General Skin Exam: Negative for jaundice or pallor MDM MDM MDM Narrative Medical decision making narrative: Patient alert and awake currently. I will check basic lab work. Patient is eating currently and is able to give a history. He states that when he has hypoglycemic episodes he gets wacky. He feels like that is what happened today. He states prior to this he was otherwise feeling well. CBC and BMP are unremarkable with exception of the glucose of 37 which was collected on arrival. Patient has been able to eat and drink since then. He is alert and awake. Patient is reported to me by the nurse and to have already eaten food before that blood work was obtained and his blood sugar was still low. After eating cookies, lemon pie, orange juice his blood sugar is 66. He still alert and mentating. He will be given D10. CBC and BMP are unremarkable. Given the patient's persistently low blood sugars even after eating and getting IV glucose twice I recommended to him that he stay for observation. Patient was discussed with the hospitalist on admission. Impression: #1 hypoglycemia Lab Data Attestation: I reviewed the patient's lab results. Labs: Laboratory Results - last 24 hr 10/19/21 10/19/21 10/19/21 18:00 18:00 18:50 WBC 10.3 RBC 5.59 Hgb 15.0 Hct 49.2 MCV 88.0 MCH 26.8 L MCHC 30.5 L RDW Std Deviation 53.5 H RDW Coeff of Fatuma 16.7 H Plt Count 274 MPV 10.3 Immature Gran % (Auto) 0.800 Neut % (Auto) 78.0 H Lymph % (Auto) 11.2 L [place] % (Auto) 7.4 Eos % (Auto) 1.5 Baso % (Auto) 1.1 H Absolute Neuts (auto) 8.1 H Absolute Lymphs (auto) 1.16 Nucleated RBC % 0 Sodium 137 Potassium 3.7 Chloride 105 Carbon Dioxide 28.0 Anion Gap 4 L BUN 11 Creatinine 0.87 Estim Creat Clear Calc 95.67 Est GFR (MDRD) Af Amer 113 Est GFR (MDRD) Non-Af 93 BUN/Creatinine Ratio 12.6 Glucose 37 L* Calcium 8.9 POC Glucose 66 L 10/19/21 19:15 WBC RBC Hgb Hct MCV MCH MCHC RDW Std Deviation RDW Coeff of Fatuma Plt Count MPV Immature Gran % (Auto) Neut % (Auto) Lymph % (Auto) [place] % (Auto) Eos % (Auto) Baso % (Auto) Absolute Neuts (auto) Absolute Lymphs (auto) Nucleated RBC % Sodium Potassium Chloride Carbon Dioxide Anion Gap BUN Creatinine Estim Creat Clear Calc Est GFR (MDRD) Af Amer Est GFR (MDRD) Non-Af BUN/Creatinine Ratio Glucose Calcium POC Glucose 113 H Discharge Plan Triage Chief Complaint: Hypoglycemia ED Provider: Sorin Mcdaniel Dx/Rx/DC Orders Prescriptions: No Action tamsulosin 0.4 mg capsule 0.4 mg PO DAILY@1730 RF: 0 atorvastatin 40 mg tablet 40 mg PO DAILY RF: 0 bupropion HCl 150 mg tablet extended release 24 hr 150 mg PO BID RF: 0 aspirin [Adult Low Dose Aspirin] 81 mg tablet,delayed release (DR/EC) 81 mg PO DAILY RF: 0 naproxen 500 mg tablet PO RF: 0 gabapentin 600 mg tablet 600 mg PO TID RF: 0 Trulicity 0.75 mg/0.5 mL pen injector 0.75 mg subcut QWEEK Qty: 2 RF: 3 multivitamin 1 EACH tablet 1 ea PO DAILY RF: 0 calcium carbonate 500 MG tablet 500 mg PO DAILY RF: 0 gabapentin 300 mg capsule 600 mg PO TIDCM RF: 0 (DME) lancets 1 EACH misc See Rx Instructions .Route .MEDSUPPLY RF: 0 tramadol 50 MG tablet 50 mg PO Q6H PRN PRN (Reason: Pain Score 6-10) Qty: 28 RF: 0 acetaminophen 500 MG tablet 1,000 mg PO Q6H PRN (Reason: Pain Score 1-5) RF: 0 nicotine 21 MG patch 21 mg TD DAILY Qty: 30 RF: 0 (DME) GeoDigital G6 Transmitter Device See Rx Instructions .ROUTE .MEDSUPPLY Qty: 1 RF: 1 Humulin R U-500 (Conc) Kwikpen 500 unit/mL (3 mL) insulin pen See Rx Instructions subcut TID Qty: 27 RF: 5 (DME) OneTouch Verio test strips Strip See Rx Instructions .ROUTE .MEDSUPPLY Qty: 100 RF: 8 lisinopril 40 mg tablet 40 mg PO DAILY Qty: 90 RF: 1 (DME) FreeStyle Heather 2 Sensor Kit See Rx Instructions .ROUTE .MEDSUPPLY Qty: 2 RF: 6 Farxiga 10 mg tablet 10 mg PO DAILY Qty: 90 RF: 1 Primary Care Provider: Jaime Meyer Chi
[2021-10-19 18:47] LABS: Anion Gap 4 (5-15); BUN 11 mg/dL (7-18); BUN/Creat Ratio 12.6 RATIO (10-20); Calcium,Total 8.9 mg/dL (8.5-10.1); Chloride 105 mmol/L (98-107); Creatinine, Serum 0.87 mg/dL (0.70-1.30); EST Glomerular Filtration Rate 93 mL/min (>60); Est Glom Filt Rate - Afr Amer 113 mL/min (>60); Estimated Creatinine Clearance 95.67 ml/min; Glucose 37 mg/dL (74-106); Potassium 3.7 mmol/L (3.5-5.1); Sodium Level 137 mmol/L (136-145)
[2021-10-19 18:56] LABS: Bedside Glucose 66 mg/dL (70-110)
[2021-10-19] MEDS: Dextrose 10%-Water 250 ML 999 ML IV (19:00)
[2021-10-19 19:21] LABS: Bedside Glucose 113 mg/dL (70-110)
--- NOTE | 2021-10-19 20:07 | HP.PCM_ITS ---
Documented by User: NAGA Lechuga 10/19/21 20:26 HPI - General General Date of Admission: 10/19/21 Date of Service: 10/19/21 Chief Complaint: Hypoglycemia HPI Narrative GEN SIM, is a 66 M who presents with complaints of hypoglycemia today, initial blood sugar done by EMS read is lower than 30. Patient was given multiple snacks in the ER and two 250 mL boluses of D10. patient is a known type II diabetic and recently saw Dr. Arteaga who adjusted his insulin. Patient is on Farxiga and Trulicity as well. Patient reports other medical history that includes BPH, hyperlipidemia, diabetic polyneuropathy, peripheral vascular disease, hypertension, morbid obesity, obstructive sleep apnea. Patient also reports that he has had multiple toes on bilateral feet amputated. Patient is also noted to have multiple episodes of diarrhea in the ER. [facility] Medical History (Updated 10/19/21 @ 21:13 by Leonardo Goddard) BPH (benign prostatic hyperplasia) CPAP (continuous positive airway pressure) dependence Erectile dysfunction HTN (hypertension) Hyperlipidemia Hypokalemia Neuropathic pain Obesity Sleep apnea Smoker Tobacco abuse Type 2 diabetes mellitus Home Medications calcium carbonate 500 mg PO DAILY 06/23/17 [History Last Taken 06/23/17] multivitamin 1 ea PO DAILY 06/23/17 [History Last Taken 06/23/17] atorvastatin 40 mg tablet 40 mg PO DAILY 10/18/19 [History Last Taken 08/31/20 2 2:39] bupropion HCl 150 mg 24 hr tablet, extended release 150 mg PO BID tab 10/18/19 [History Last Taken 09/01/20 08:27] tamsulosin 0.4 mg capsule 0.4 mg PO DAILY@1730 cap 10/18/19 [History Last Taken 08/31/20 17:28] gabapentin 300 mg capsule 600 mg PO TIDCM cap 04/24/20 [History Last Taken 09/01/20 13:15] aspirin 81 mg tablet,delayed release 81 mg PO DAILY tab 07/28/20 [History Last Taken Unknown] lancets 09/01/20 [History Last Taken Unknown] acetaminophen 1,000 mg PO Q6H PRN tab 10/03/20 [Rx Last Taken Unknown] nicotine 21 mg TD DAILY #30 patch 10/03/20 [Rx Last Taken Unknown] tramadol 50 mg PO Q6H PRN PRN #28 tab 10/03/20 [Rx Last Taken Unknown] gabapentin 600 mg tablet 600 mg PO TID tab 10/31/20 [History Last Taken Unknown] naproxen 500 mg tablet ea PO 10/31/20 [History Last Taken Unknown] blood-glucose transmitter #1 ea 11/30/20 [Rx Last Taken Unknown] Humulin R U-500 (Conc) Kwikpen 500 unit/mL (3 mL) subcutaneous See Rx Instructions SUBCUT TID #27 ml NS 07/09/21 [Rx Last Taken Unknown] dulaglutide 0.75 mg/0.5 mL subcutaneous pen injector 0.75 mg SUBCUT QWEEK #2 ml 07/26/21 [Rx Last Taken Unknown] blood sugar diagnostic #100 ea 08/06/21 [Rx Last Taken Unknown] lisinopril 40 mg tablet 40 mg PO DAILY #90 tab 08/06/21 [Rx Last Taken Unknown] flash glucose sensor #2 ea 08/23/21 [Rx Last Taken Unknown] Farxiga 10 mg tablet 10 mg PO DAILY #90 tab NS 09/03/21 [Rx Last Taken Unknown] Allergy/AdvReac Type Severity Reaction Status Date / Time Sulfa (Sulfonamide Allergy Rash Verified 09/24/21 10:23 Antibiotics) Family History Father Myocardial infarction Heart disease Mother Kidney disease Diabetes Sister Asthma Breast cancer Hypertension Brother Alcoholism Melanoma Surgical History History of ankle surgery History of deviated nasal septum History of hernia repair History of oral surgery History of transmetatarsal amputation of left foot History of vasectomy Social History Smoking Status: Heavy Smoker (>10/day) alcohol intake: never substance use type: does not use what type of physical activity do you participate in: none ROS Constitutional Constitutional: Denies anorexia, chills, fatigue, fever(s), malaise or weakness Cardiovascular Cardiovascular: Denies chest pain, edema or palpitations Respiratory/Chest Respiratory/Chest: Denies cough, shortness of breath at rest, shortness of breath with exertion or wheezing Gastrointestinal Gastrointestinal: Reports diarrhea; Denies abdominal pain, constipation, nausea or vomiting Genitourinary Genitourinary: Denies dysuria Musculoskeletal Musculoskeletal: Denies back pain, extremity pain, joint pain or joint stiffness Integumentary Integumentary: Denies dry skin Neurologic Neurologic: Denies abnormal gait, abnormal speech, confusion or dizziness Psychiatric Psychiatric: Denies anxiety or depression Endocrine Endocrinology: Reports other Details: Hypoglycemia Vital Signs Vital Signs Vital Signs: 10/19/21 16:55 10/19/21 16:59 10/19/21 18:01 Temperature 97.6 F L Temperature Source Temporal Pulse Rate 72 70 Respiratory Rate 18 Respiratory Effort Normal Respiratory Pattern Normal Blood Pressure 128/52 H Blood Pressure Mean 77 Pulse Ox 98 Oxygen Delivery Method Room Air 10/19/21 19:50 Temperature 98.1 F Temperature Source Temporal Pulse Rate 70 Respiratory Rate 22 H Respiratory Effort Respiratory Pattern Blood Pressure 155/64 H Blood Pressure Mean 94 Pulse Ox 100 Oxygen Delivery Method Room Air Weight Weight: 300 lb 14.896 oz Body Mass Index (BMI) 39.6 Physical Exam Const alert, oriented x3 and no apparent distress General Appearance: cooperative HEENT normocephalic and head/scalp atraumatic Eyes conjunctivae normal and no scleral icterus Neck no lymphadenopathy and supple General: trachea midline Resp normal respiratory effort, normal air movement and clear to auscultation bilaterally Cardio regular rate, regular rhythm, S1 normal heart sound, S2 normal heart sound and peripheral pulses 2+ throughout GI normal to inspection, nondistended, normoactive bowel sounds, soft to palpation and non-tender Extremity normal capillary refill and no clubbing, cyanosis or edema General Extremity: no tenderness to palpation of joints or extremities Skin General Skin Exam: no breakdown and turgor normal Lesions: no lesions Rashes: no rashes Neuro oriented x3, moves all extremities, no focal motor deficits and no sensory deficits noted Speech: speech normal Motor Exam: Negative for general weakness Psych thought process normal, cooperative and affect normal Appearance: appropriate Results Lab / Micro Data Result Diagrams: 10/19/21 18:00 10/19/21 18:00 Labs: Laboratory Results - last 24 hr 10/19/21 18:00: WBC 10.3, RBC 5.59, Hgb 15.0, Hct 49.2, MCV 88.0, MCH 26.8 L, MCHC 30.5 L, RDW Std Deviation 53.5 H, RDW Coeff of Fatuma 16.7 H, Plt Count 274, MPV 10.3, Immature Gran % (Auto) 0.800, Neut % (Auto) 78.0 H, Lymph % (Auto) 11.2 L, [place] % (Auto) 7.4, Eos % (Auto) 1.5, Baso % (Auto) 1.1 H, Absolute Neuts (auto) 8.1 H, Absolute Lymphs (auto) 1.16, Nucleated RBC % 0 10/19/21 18:00: Sodium 137, Potassium 3.7, Chloride 105, Carbon Dioxide 28.0, Anion Gap 4 L, BUN 11, Creatinine 0.87, Estim Creat Clear Calc 95.67, Est GFR (MDRD) Af Amer 113, Est GFR (MDRD) Non-Af 93, BUN/Creatinine Ratio 12.6, Glucose 37 L*, Calcium 8.9 10/19/21 18:50: POC Glucose 66 L 10/19/21 19:15: POC Glucose 113 H Assessment & Plan Assessment/Plan (1) Hypoglycemia associated with type 2 diabetes mellitus: (2) Hypertension: QUALIFIERS: Hypertension type: essential hypertension Qualified Code(s): I10 - Essential (primary) hypertension (3) Hyperlipidemia: QUALIFIERS: Hyperlipidemia type: mixed hyperlipidemia Qualified Code(s): E78.2 - Mixed hyperlipidemia (4) Type 2 diabetes mellitus with diabetic polyneuropathy: QUALIFIERS: Diabetes mellitus manager terminal insulin use: without custodial use Qualified Code(s): E11.42 - Type 2 diabetes mellitus with diabetic polyneuropathy (5) Diarrhea: QUALIFIERS: Diarrhea type: unspecified type Qualified Code(s): R19.7 - Diarrhea, unspecified PLAN: 1. Hypoglycemia associated with type 2 diabetes mellitus with polyneuropathy -Admit to [facility] -Every 2 hour blood glucose test -Hold patient's home diabetic regimen at this time -D5 0.45 100 mL/h -Hypoglycemia protocol ordered -CMP, CBC, hemoglobin A1c, TSH, magnesium ordered for a.m. -Regular diet ordered -Continue patient's home medication regimen of gabapentin for neuropathy 2. Diarrhea -C. difficile, enteric pathogen panel, COVID-19 rapid ordered -Patient does not report feeling ill however patient has had multiple episodes of diarrhea in ER -Special contact precautions ordered pending stool testing 3. Hypertension -Continue patient's home medication regimen of lisinopril -Vital signs per protocol, currently stable 4. Hyperlipidemia -Continue atorvastatin 5. BPH -Continue tamsulosin 6. Obstructive sleep apnea -CPAP ordered 7. Tobacco use -Encourage smoking cessation -Patient provided nicotine patch 8. Obesity BMI 35.0-39.9 -Encourage lifestyle modifications diet and exercise DVT prophylaxis-subcu Lovenox This patient was seen by Randee Man NP-C under the supervision of Dr. Chavez. 32 minutes spent in clinical coordination of patient's plan of care. Documented by User: Dr. Shannon Chavez MD 10/19/21 21:21 HPI - General General Date of Admission: 10/19/21 [facility] Medical History (Updated 10/19/21 @ 21:13 by Leonardo Goddard) BPH (benign prostatic hyperplasia) CPAP (continuous positive airway pressure) dependence Erectile dysfunction HTN (hypertension) Hyperlipidemia Hypokalemia Neuropathic pain Obesity Sleep apnea Smoker Tobacco abuse Type 2 diabetes mellitus Home Medications calcium carbonate 500 mg PO DAILY 06/23/17 [History Last Taken 06/23/17] multivitamin 1 ea PO DAILY 06/23/17 [History Last Taken 06/23/17] atorvastatin 40 mg tablet 40 mg PO DAILY 10/18/19 [History Last Taken 08/31/20 22:39] bupropion HCl 150 mg 24 hr tablet, extended release 150 mg PO BID tab 10/18/19 [History Last Taken 09/01/20 08:27] tamsulosin 0.4 mg capsule 0.4 mg PO DAILY@1730 cap 10/18/19 [History Last Taken 08/31/20 17:28] gabapentin 300 mg capsule 600 mg PO TIDCM cap 04/24/20 [History Last Taken 09/01/20 13:15] aspirin 81 mg tablet,delayed release 81 mg PO DAILY tab 07/28/20 [History Last Taken Unknown] lancets 09/01/20 [History Last Taken Unknown] acetaminophen 1,000 mg PO Q6H PRN tab 10/03/20 [Rx Last Taken Unknown] nicotine 21 mg TD DAILY #30 patch 10/03/20 [Rx Last Taken Unknown] tramadol 50 mg PO Q6H PRN PRN #28 tab 10/03/20 [Rx Last Taken Unknown] gabapentin 600 mg tablet 600 mg PO TID tab 10/31/20 [History Last Taken Unknown] naproxen 500 mg tablet ea PO 10/31/20 [History Last Taken Unknown] blood-glucose transmitter #1 ea 11/30/20 [Rx Last Taken Unknown] Humulin R U-500 (Conc) Kwikpen 500 unit/mL (3 mL) subcutaneous See Rx Instructions SUBCUT TID #27 ml NS 07/09/21 [Rx Last Taken Unknown] dulaglutide 0.75 mg/0.5 mL subcutaneous pen injector 0.75 mg SUBCUT QWEEK #2 ml 07/26/21 [Rx Last Taken Unknown] blood sugar diagnostic #100 ea 08/06/21 [Rx Last Taken Unknown] lisinopril 40 mg tablet 40 mg PO DAILY #90 tab 08/06/21 [Rx Last Taken Unknown] flash glucose sensor #2 ea 08/23/21 [Rx Last Taken Unknown] Farxiga 10 mg tablet 10 mg PO DAILY #90 tab NS 09/03/21 [Rx Last Taken Unknown] Allergy/AdvReac Type Severity Reaction Status Date / Time Sulfa (Sulfonamide Allergy Rash Verified 09/24/21 10:23 Antibiotics) Family History Father Myocardial infarction Heart disease Mother Kidney disease Diabetes Sister Asthma Breast cancer Hypertension Brother Alcoholism Melanoma Surgical History History of ankle surgery History of deviated nasal septum History of hernia repair History of oral surgery History of transmetatarsal amputation of left foot History of vasectomy Social History Smoking Status: Heavy Smoker (>10/day) alcohol intake: never substance use type: does not use what type of physical activity do you participate in: none Results Lab / Micro Data Result Diagrams: 10/19/21 18:00 10/19/21 18:00
[2021-10-19 20:10] LABS: Bedside Glucose 101 mg/dL (70-110)
[2021-10-19 20:48] LABS: Magnesium 2.6 mg/dL (1.6-2.6)
[2021-10-19] MEDS: 0.9% Saline Lock 10 ML Syringe IV (22:11)
[2021-10-19] MEDS: Dext 5%-0.45% NS 1,000 ML 100 ML IV (22:11)
[2021-10-19 22:16] LABS: Bedside Glucose 160 mg/dL (70-110)
[2021-10-19] MEDS: Enoxaparin 40 MG/0.4 ML Syringe SC (22:29)
[2021-10-19] MEDS: buPROPion (XL) 150 MG TABLET.XL PO (22:29)
[2021-10-19 23:31] LABS: Bedside Glucose 136 mg/dL (70-110)
[2021-10-20] MEDS: Gabapentin 300 MG Capsule 600 MG PO ×3 (08:00→17:00)
[2021-10-20] MEDS: Glucerna Shake 120 ML LIQUID PO ×3 (08:00→17:00)
[2021-10-20] MEDS: Dext 5%-0.45% NS 1,000 ML 100 ML IV (08:10)
[2021-10-20] MEDS: buPROPion (XL) 150 MG TABLET.XL PO ×2 (10:00→22:00)
[2021-10-20] MEDS: Enoxaparin 40 MG/0.4 ML Syringe SC ×2 (10:00→22:00)
[2021-10-20] MEDS: Aspirin E.C. 81 MG Tablet PO (10:00)
[2021-10-20] MEDS: Lisinopril 40 MG Tablet PO (10:00)
[2021-10-20] MEDS: Insulin Lispro 100 UNIT/ML INSULN.PEN SC ×3 (13:00→22:00)
--- NOTE | 2021-10-20 13:59 | PN_ITS ---
DATE OF SERVICE 10/20/21 SUBJECTIVE Patient seen and examined. Alert and oriented. Denies further diarrhea. Tolerating diet. Blood glucose improved. Denies other symptoms or complaints. States his insulin was reduced approximately 2 weeks ago by sample builder. OBJECTIVE Physical exam: General appearance: Awake, appropriate, no noted distress HEENT: Normocephalic, head/scalp atraumatic Eyes: Conjunctiva normal and no scleral icterus Neck: Supple, no lymphadenopathy, trachea midline Respiratory: Diminished, clear to auscultation Cardio: regular rate/rhythm GI: Soft, nondistended, nontender, normal active bowel sounds Extremity: Normal capillary refill, no edema Skin: No lesions, no rashes, no breakdown Neuro: No focal motor deficits and no sensory deficits noted Psych: Normal affect Vital signs and lab data reviewed. Hemodynamically stable. ASSESSMENT/PLAN 1. Hypoglycemia in the setting of type 2 diabetes mellitus-patient reports recent recurrent hypoglycemic episodes. Insulin recently reduced by endocrinology. Blood glucose improved. Resume Accu-Cheks with sliding scale insulin. Will attempt to discuss with patient's primary sample builder regarding discharge medication adjustments. 2. Acute metabolic encephalopathy-secondary to hypoglycemia. Resolved. 3. Diarrhea-resolved. 4. Hypertension-stable, continue lisinopril. 5. Hyperlipidemia-continue statin. 6. Chronic diabetic foot wounds with history of osteomyelitis-follows with wound center/podiatry. Recent dressing changes 10/19/2021. Dressing changes as needed. 7. Anxiety/depression-on bupropion. 8. Morbid obesity-encouraged diet and lifestyle modifications 9. Tobacco dependence-encouraged cessation. 10. ANT-CPAP nightly. DVT prophylaxis-Lovenox This patient was seen by NAGA Mercado under the supervision of Dr. Stanford. Time spent examining patient, reviewing data and subsequent management of care: 12 minutes Addendum- LEMUEL Stanford Patient seen by Monica NIELSON under my supervision Patient seen and examined. He was admitted with a complaint of altered mental status and was found to be hypoglycemic. Patient said his short-acting insulin had been reduced by his PCP recently on account of recurrent hypoglycemia. He states he has been eating and drinking well. He denies any lightheadedness, dizziness, palpitations, chest pain, nausea or vomiting. Review of systems otherwise negative. O/E: Physical exam: General appearance: Awake, appropriate, no noted distress HEENT: Normocephalic, head/scalp atraumatic Eyes: Conjunctiva normal and no scleral icterus Neck: Supple, no lymphadenopathy, trachea midline Respiratory: Diminished, clear to auscultation Cardio: regular rate/rhythm GI: Soft, nondistended, nontender, normal active bowel sounds Extremity: Normal capillary refill, no edema Skin: No lesions, no rashes, no breakdown, bandage on LEs Neuro: No focal motor deficits and no sensory deficits noted Psych: Normal affect Assessment and plan #Hypoglycemia in the setting of known type 2 diabetes mellitus He is on Trulicity with a weekly shot and states his short-acting insulin was recently reduced by his sample builder. Blood sugar levels have now improved. To DC D5 normal saline. Insulin sliding scale. Accu-Cheks AC at bedtime. #Diarrhea: Resolved. Has not had any diarrheal episode since admission. #Acute metabolic encephalopathy due to hypoglycemia Resolved. Patient is alert and oriented now. #Hypertension: On lisinopril #Hyperlipidemia: on statin #Chronic diabetic foot wounds: has a history of osteomyelitis. Follow up with wound center on outpatient basis #Anxiety and depression: on bupropion #ANT: on CPAP qhs DVT prophylaxis: lovenox Patient seen by Monica NIELSON under my supervision Billing code: Inpatient level 2 [id number]
[2021-10-20] MEDS: Tamsulosin HCl 0.4 MG Capsule PO (17:30)
[2021-10-20 19:10] LABS: ALB/GLOB Ratio 0.7 RATIO (0.9-2.4); AST(SGOT) 16 U/L (15-37); Alanine Aminotransfer ALT/SGPT 23 U/L (16-61); Albumin, Serum 2.8 g/dL (3.2-5.0); Alkaline Phosphatase 81 U/L (45-117); Anion Gap 6 (5-15); BUN 10 mg/dL (7-18); BUN/Creat Ratio 12.5 RATIO (10-20); Calcium,Total 8.5 mg/dL (8.5-10.1); Chloride 107 mmol/L (98-107); EST Glomerular Filtration Rate 103 mL/min (>60); Est Glom Filt Rate - Afr Amer 124 mL/min (>60); Estimated Creatinine Clearance 101.04 ml/min; Glucose 103 mg/dL (74-106); Hemoglobin A1c 6.7 % (3.8-5.6); Potassium 4.1 mmol/L (3.5-5.1); Protein, Total 6.8 g/dL (6.4-8.2); Sodium Level 138 mmol/L (136-145); Thyroid Stim Hormone (TSH) 1.83 uIU/mL (0.358-3.74)
[2021-10-20 19:24] LABS: Bedside Glucose 110 mg/dL (70-110)
[2021-10-20 19:24] LABS: Bedside Glucose 103 mg/dL (70-110)
[2021-10-20 19:24] LABS: Bedside Glucose 159 mg/dL (70-110)
[2021-10-20 19:25] LABS: Bedside Glucose 182 mg/dL (70-110)
[2021-10-20 19:25] LABS: Bedside Glucose 196 mg/dL (70-110)
[2021-10-20 21:10] LABS: Bedside Glucose 190 mg/dL (70-110)
[2021-10-20] MEDS: Atorvastatin Calcium 40 MG Tablet PO (22:00)
[2021-10-20 22:04] LABS: Absolute Lymphocyte Count 2.05 X10^3/uL (0.83-4.51); Absolute Neutrophil Count 6.7 X10^3/uL (2.0-7.7); Basophil# 0.12 X10^3/uL; Basophil% 1.2 % (0-1); Eosinophil# 0.32 X10^3/uL; Eosinophils% 3.1 % (0-5); Hematocrit 46.5 % (40-54); Hemoglobin 14.5 g/dL (13.0-16.5); Lymphocyte # 2.05 X10^3/ul (0.83-4.51); Lymphocyte % 20.1 % (19-41); Mean Corp Hgb Conc 31.2 g/dL (32-36); Mean Corpuscular Hgb 27.4 pg (27.0-32.0); Mean Corpuscular Volume 87.7 fL (80-94); Mean Platelet Vol. 10.3 fl (6.2-12.0); Monocyte% 8.8 % (0-10); NRBC Flagged by Analyzer 0 % (0-5); Neutrophil # 6.72 X10^3/uL (2.7-7.7); Neutrophil % 66.1 % (47-70); Platelet Count 226 K/mm3 (150-450); RBC Distribution Width CV 16.7 % (11.6-14.6); RBC Distribution Width SD 53.8 fl (35.1-43.9); White Blood Count 10.2 K/mm3 (4.4-11.0)
[2021-10-21 02:20] VITALS: BP 142/63; PULSE 76; RESP 18; TEMP 36.8; O2SAT 94
[2021-10-21 03:59] VITALS: PULSE 69
[2021-10-21] MEDS: 0.9% Normal Saline 1,000 ML 100 ML IV (06:27)
[2021-10-21 06:51] LABS: Bedside Glucose 140 mg/dL (70-110)
[2021-10-21 07:29] VITALS: PULSE 68
[2021-10-21 07:49] VITALS: O2SAT 95
[2021-10-21] MEDS: Gabapentin 300 MG Capsule 600 MG PO (09:14)
[2021-10-21 09:15] VITALS: BP 151/78; PULSE 84; RESP 16; TEMP 37; O2SAT 94
[2021-10-21] MEDS: Lisinopril 40 MG Tablet PO (09:15)
[2021-10-21] MEDS: buPROPion (XL) 150 MG TABLET.XL PO (09:15)
[2021-10-21] MEDS: Aspirin E.C. 81 MG Tablet PO (09:17)
--- NOTE | 2021-10-21 10:36 | DCINST_ITS ---
Discharge Instructions Diet Discharge Diet: Carb Control Diet Activity Discharge Activity: Return to Normal Activity Dressing / Incision Call your doctor if you observe: Shortness of breath, Dizziness, Fainting spells and Chest pain Follow Up Care Test Results: Test results from this visit will be discussed in further detail at your follow-up appointment, if applicable. Discharge Plan Admission Admit Date/Time: 10/19/21 20:10 Primary Reason for Your Visit: Hypoglycemia Attending Provider: Muna Stanford Primary Care Provider: Jaime Meyer Chi Instructions Additional Instructions / Restrictions: Your insulin regimen was discussed with Dr. Arteaga, each dose was reduced by 20 units as noted on medication list. Discharge Orders/Prescriptions Prescriptions: Continued tamsulosin 0.4 mg capsule 0.4 mg PO DAILY@1730 RF: 0 atorvastatin 40 mg tablet 40 mg PO DAILY RF: 0 bupropion HCl 150 mg tablet extended release 24 hr 150 mg PO BID RF: 0 aspirin [Adult Low Dose Aspirin] 81 mg tablet,delayed release (DR/EC) 81 mg PO DAILY RF: 0 naproxen 500 mg tablet PO RF: 0 gabapentin 600 mg tablet 600 mg PO TID RF: 0 Trulicity 0.75 mg/0.5 mL pen injector 0.75 mg subcut QWEEK Qty: 2 RF: 3 multivitamin 1 EACH tablet 1 ea PO DAILY RF: 0 calcium carbonate 500 MG tablet 500 mg PO DAILY RF: 0 gabapentin 300 mg capsule 600 mg PO TIDCM RF: 0 (DME) lancets 1 EACH misc See Rx Instructions .Route .MEDSUPPLY RF: 0 tramadol 50 MG tablet 50 mg PO Q6H PRN PRN (Reason: Pain Score 6-10) Qty: 28 RF: 0 acetaminophen 500 MG tablet 1,000 mg PO Q6H PRN (Reason: Pain Score 1-5) RF: 0 nicotine 21 MG patch 21 mg TD DAILY Qty: 30 RF: 0 (DME) [employer] G6 Transmitter Device See Rx Instructions .ROUTE .MEDSUPPLY Qty: 1 RF: 1 (DME) OneTouch Verio test strips Strip See Rx Instructions .ROUTE .MEDSUPPLY Qty: 100 RF: 8 lisinopril 40 mg tablet 40 mg PO DAILY Qty: 90 RF: 1 (DME) FreeStyle Heather 2 Sensor Kit See Rx Instructions .ROUTE .MEDSUPPLY Qty: 2 RF: 6 Farxiga 10 mg tablet 10 mg PO DAILY Qty: 90 RF: 1 Changed Humulin R U-500 (Conc) Kwikpen 500 unit/mL (3 mL) insulin pen See Rx Instructions subcut TID Qty: 27 RF: 5 Referrals / Follow Up: Juan Arteaga MD [STAFF PHYSICIAN] - Within 2 Weeks (May see [employer]ER APPRENTICE) Jaime Meyer Chi, MD [Primary Care Provider] - In 1 Week Disposition Disposition (needs filled in before D/C Order can be placed): Home, Self Care
--- NOTE | 2021-10-21 10:41 | DS.PCM_ITS ---
Documented by User: Monica Barillas NP, [employer]-C 10/21/21 10:50 Providers Date of Admission: 10/19/21 Date of Discharge: 10/21/21 Primary Care Physician: Dr. Jaime Meyer MD Consultations 10/19/21 21:30 Consult: Onc/Wound/recreation specialist Routine Comment: Reason For Visit: hypoglycemia Diagnosis Discharge Diagnosis (1) Hypoglycemia associated with type 2 diabetes mellitus: Status: Acute Code(s): E11.649 - Type 2 diabetes mellitus with hypoglycemia without coma (2) Hypertension: Status: Chronic Code(s): I10 - Essential (primary) hypertension Qualifiers: Hypertension type: essential hypertension Qualified Code(s): I10 - Essential (primary) hypertension (3) Hyperlipidemia: Status: Chronic Code(s): E78.5 - Hyperlipidemia, unspecified Qualifiers: Hyperlipidemia type: mixed hyperlipidemia Qualified Code(s): E78.2 - Mixed hyperlipidemia (4) Type 2 diabetes mellitus with diabetic polyneuropathy: Status: Chronic Code(s): E11.42 - Type 2 diabetes mellitus with diabetic polyneuropathy Qualifiers: Diabetes mellitus retirement insulin use: without retirement use Qualified Code(s): E11.42 - Type 2 diabetes mellitus with diabetic polyneuropathy (5) Diarrhea: Status: Acute Code(s): R19.7 - Diarrhea, unspecified Qualifiers: Diarrhea type: unspecified type Qualified Code(s): R19.7 - Diarrhea, unspecified Medications at Discharge Home Medications calcium carbonate 500 mg PO DAILY 06/23/17 multivitamin 1 ea PO DAILY 06/23/17 atorvastatin 40 mg tablet 40 mg PO DAILY 10/18/19 bupropion HCl 150 mg 24 hr tablet, extended release 150 mg PO BID tab 10/18/19 tamsulosin 0.4 mg capsule 0.4 mg PO DAILY@1730 cap 10/18/19 gabapentin 300 mg capsule 600 mg PO TIDCM cap 04/24/20 aspirin 81 mg tablet,delayed release 81 mg PO DAILY tab 07/28/20 lancets 09/01/20 acetaminophen 1,000 mg PO Q6H PRN tab 10/03/20 nicotine 21 mg TD DAILY #30 patch 10/03/20 tramadol 50 mg PO Q6H PRN PRN #28 tab 10/03/20 gabapentin 600 mg tablet 600 mg PO TID tab 10/31/20 naproxen 500 mg tablet ea PO 10/31/20 blood-glucose transmitter #1 ea 11/30/20 dulaglutide 0.75 mg/0.5 mL subcutaneous pen injector 0.75 mg SUBCUT QWEEK #2 ml 07/26/21 blood sugar diagnostic #100 ea 08/06/21 lisinopril 40 mg tablet 40 mg PO DAILY #90 tab 08/06/21 flash glucose sensor #2 ea 08/23/21 Farxiga 10 mg tablet 10 mg PO DAILY #90 tab NS 09/03/21 Humulin R U-500 (Conc) Cecile See Rx Instructions SUBCUT TID #27 ml NS 10/21/21 Hospital Course Operations None Procedures None Summary of Care Provided Hospital Course: Patient is a 66-year-old male admitted 10/19/2021 due to hypoglycemia. 1. Hypoglycemia in the setting of type 2 diabetes mellitus-patient reports recent recurrent hypoglycemic episodes. Insulin recently adjusted by endocrinology. Blood glucose improved. Discussed with patient's order filler, Dr. Arteaga who recommended reducing U-500 by 20 units each dose. Continue Trulicity and Farxiga. Hemoglobin A1c 6.7%. Follow-up with PCP and endocrinology in 1 to 2 weeks at discharge. Discussed continued close glucose monitoring. 2. Acute metabolic encephalopathy-secondary to hypoglycemia. Resolved. 3. Diarrhea-resolved. 4. Hypertension-stable, continue lisinopril. 5. Hyperlipidemia-continue statin. 6. Chronic diabetic foot wounds with history of osteomyelitis-follows with wound center/podiatry. Recent dressing changes 10/19/2021. Dressing changes as needed. 7. Anxiety/depression-on bupropion. 8. Morbid obesity-encouraged diet and lifestyle modifications 9. Tobacco dependence-encouraged cessation. 10. ANT-CPAP nightly. Patient seen and examined prior to discharge. Physical assessment as noted below. Patient is stable for discharge with follow up recommendations as noted above. This patient was seen by NAGA Mercado under the supervision of Dr. Stanford. Time spent examining patient, reviewing data and subsequent management of care: 16 minutes Physical Exam Const alert, oriented x3 and no apparent distress Orientation / Consciousness: awake, oriented to person, oriented to place and oriented to time HEENT normocephalic and moist oral mucous membranes Eyes PERRL, EOMs intact bilaterally and conjunctivae normal Neck no lymphadenopathy Resp normal respiratory effort and clear to auscultation bilaterally Cardio regular rate, regular rhythm and no murmurs Peripheral Pulses: pulses 2+ throughout GI normal to inspection, nondistended, normoactive bowel sounds, non-tender and non-distended Extremity normal to inspection Skin no rashes or lesions noted Skin Narrative: Chronic diabetic foot wounds bilaterally, dressings intact. Lesions: no lesions Rashes: no rashes Trauma: no lacerations or abrasions Neuro CN's II-XII intact bilaterally, no focal motor deficits, no sensory deficits not ed and deep tendon reflexes 2+ bilaterally Psych mental status grossly normal and affect normal Weight / BMI Weight Weight: 344 lb 12.847 oz Body Mass Index (BMI) 39.9 ABG / Lab / Microbiology Data Result Diagrams: 10/20/21 05:40 10/20/21 05:40 Laboratory: Laboratory Results - last 24 hr 10/20/21 04:01: POC Glucose 103 10/20/21 05:40: WBC 10.2, RBC 5.30, Hgb 14.5, Hct 46.5, MCV 87.7, MCH 27.4, MCHC 31.2 L, RDW Std Deviation 53.8 H, RDW Coeff of Fatuma 16.7 H, Plt Count 226, MPV 10.3, Immature Gran % (Auto) 0.700, Neut % (Auto) 66.1, Lymph % (Auto) 20.1, [place] % (Auto) 8.8, Eos % (Auto) 3.1, Baso % (Auto) 1.2 H, Absolute Neuts (auto) 6.7, Absolute Lymphs (auto) 2.05, Nucleated RBC % 0 10/20/21 05:40: Sodium 138, Potassium 4.1, Chloride 107, Carbon Dioxide 25.0, Anion Gap 6, BUN 10, Creatinine 0.80, Estim Creat Clear Calc 101.04, Est GFR (MDRD) Af Amer 124, Est GFR (MDRD) Non-Af 103, BUN/Creatinine Ratio 12.5, Glucose 103, Calcium 8.5, Total Bilirubin 0.40, AST 16, ALT 23, Alkaline Phosphatase 81, Total Protein 6.8, Albumin 2.8 L, Globulin 4.0, Albumin/Globulin Ratio 0.7 L, TSH 1.83 10/20/21 05:40: Hemoglobin A1c 6.7 H 10/20/21 06:37: POC Glucose 110 10/20/21 08:09: POC Glucose 159 H 10/20/21 11:40: POC Glucose 196 H 10/20/21 17:13: POC Glucose 182 H 10/20/21 21:04: POC Glucose 190 H 10/21/21 06:25: POC Glucose 140 H Microbiology: Microbiology 10/19/21 20:20 Nasal Secretion SARS-CoV-2 Antigen (Rapid) - Final D/C Instructions Discharge Diet: Carb Control Diet Call your doctor if you observe: Shortness of breath, Dizziness, Fainting spells and Chest pain Meaningful Use Info Meaningful Use Diagnoses (Choose all that apply): None applicable Discharge Plan Admission Admit Date/Time: 10/19/21 20:10 Primary Reason for Your Visit: Hypoglycemia Attending Provider: Muna Stanford Primary Care Provider: Jaime Meyer Chi Instructions Additional Instructions / Restrictions: Your insulin regimen was discussed with Dr. Arteaga, each dose was reduced by 20 units as noted on medication list. Discharge Orders/Prescriptions Prescriptions: Continued tamsulosin 0.4 mg capsule 0.4 mg PO DAILY@1730 RF: 0 atorvastatin 40 mg tablet 40 mg PO DAILY RF: 0 bupropion HCl 150 mg tablet extended release 24 hr 150 mg PO BID RF: 0 aspirin [Adult Low Dose Aspirin] 81 mg tablet,delayed release (DR/EC) 81 mg PO DAILY RF: 0 naproxen 500 mg tablet PO RF: 0 gabapentin 600 mg tablet 600 mg PO TID RF: 0 Trulicity 0.75 mg/0.5 mL pen injector 0.75 mg subcut QWEEK Qty: 2 RF: 3 multivitamin 1 EACH tablet 1 ea PO DAILY RF: 0 calcium carbonate 500 MG tablet 500 mg PO DAILY RF: 0 gabapentin 300 mg capsule 600 mg PO TIDCM RF: 0 (DME) lancets 1 EACH misc See Rx Instructions .Route .MEDSUPPLY RF: 0 tramadol 50 MG tablet 50 mg PO Q6H PRN PRN (Reason: Pain Score 6-10) Qty: 28 RF: 0 acetaminophen 500 MG tablet 1,000 mg PO Q6H PRN (Reason: Pain Score 1-5) RF: 0 nicotine 21 MG patch 21 mg TD DAILY Qty: 30 RF: 0 (DME) [employer] G6 Transmitter Device See Rx Instructions .ROUTE .MEDSUPPLY Qty: 1 RF: 1 (DME) OneTouch Verio test strips Strip See Rx Instructions .ROUTE .MEDSUPPLY Qty: 100 RF: 8 lisinopril 40 mg tablet 40 mg PO DAILY Qty: 90 RF: 1 (DME) FreeStyle Heather 2 Sensor Kit See Rx Instructions .ROUTE .MEDSUPPLY Qty: 2 RF: 6 Farxiga 10 mg tablet 10 mg PO DAILY Qty: 90 RF: 1 Changed Humulin R U-500 (Conc) Kwikpen 500 unit/mL (3 mL) insulin pen See Rx Instructions subcut TID Qty: 27 RF: 5 Referrals / Follow Up: Juan Arteaga MD [STAFF PHYSICIAN] - Within 2 Weeks (May see [employer]INTENA[employer]CE) Jaime Meyer Chi, MD [Primary Care Provider] - In 1 Week Disposition Disposition (needs filled in before D/C Order can be placed): Home, Self Care Documented by User: Dr. Muna Stanford MD 10/21/21 16:15 Providers Date of Admission: 10/19/21 Reason For Visit: hypoglycemia Medications at Discharge Home Medications calcium carbonate 500 mg PO DAILY 06/23/17 multivitamin 1 ea PO DAILY 06/23/17 atorvastatin 40 mg tablet 40 mg PO DAILY 10/18/19 bupropion HCl 150 mg 24 hr tablet, extended release 150 mg PO BID tab 10/18/19 tamsulosin 0.4 mg capsule 0.4 mg PO DAILY@1730 cap 10/18/19 gabapentin 300 mg capsule 600 mg PO TIDCM cap 04/24/20 aspirin 81 mg tablet,delayed release 81 mg PO DAILY tab 07/28/20 lancets 09/01/20 acetaminophen 1,000 mg PO Q6H PRN tab 10/03/20 nicotine 21 mg TD DAILY #30 patch 10/03/20 tramadol 50 mg PO Q6H PRN PRN #28 tab 10/03/20 gabapentin 600 mg tablet 600 mg PO TID tab 10/31/20 naproxen 500 mg tablet ea PO 10/31/20 blood-glucose transmitter #1 ea 11/30/20 dulaglutide 0.75 mg/0.5 mL subcutaneous pen injector 0.75 mg SUBCUT QWEEK #2 ml 07/26/21 blood sugar diagnostic #100 ea 08/06/21 lisinopril 40 mg tablet 40 mg PO DAILY #90 tab 08/06/21 flash glucose sensor #2 ea 08/23/21 Farxiga 10 mg tablet 10 mg PO DAILY #90 tab NS 09/03/21 Humulin R U-500 (Conc) Kwikpen See Rx Instructions SUBCUT TID #27 ml NS 10/21/21 ABG / Lab / Microbiology Data Result Diagrams: 10/20/21 05:40 10/20/21 05:40 Discharge Plan Admission Admit Date/Time: 10/19/21 20:10 Primary Reason for Your Visit: Hypoglycemia Attending Provider: Muna Stanford Primary Care Provider: Jaime Meyer Chi Instructions Additional Instructions / Restrictions: Your insulin regimen was discussed with Dr. Arteaga, each dose was reduced by 20 units as noted on medication list. Discharge Orders/Prescriptions Prescriptions: Continued tamsulosin 0.4 mg capsule 0.4 mg PO DAILY@1730 RF: 0 atorvastatin 40 mg tablet 40 mg PO DAILY RF: 0 bupropion HCl 150 mg tablet extended release 24 hr 150 mg PO BID RF: 0 aspirin [Adult Low Dose Aspirin] 81 mg tablet,delayed release (DR/EC) 81 mg PO DAILY RF: 0 naproxen 500 mg tablet PO RF: 0 gabapentin 600 mg tablet 600 mg PO TID RF: 0 Trulicity 0.75 mg/0.5 mL pen injector 0.75 mg subcut QWEEK Qty: 2 RF: 3 multivitamin 1 EACH tablet 1 ea PO DAILY RF: 0 calcium carbonate 500 MG tablet 500 mg PO DAILY RF: 0 gabapentin 300 mg capsule 600 mg PO TIDCM RF: 0 (DME) lancets 1 EACH misc See Rx Instructions .Route .MEDSUPPLY RF: 0 tramadol 50 MG tablet 50 mg PO Q6H PRN PRN (Reason: Pain Score 6-10) Qty: 28 RF: 0 acetaminophen 500 MG tablet 1,000 mg PO Q6H PRN (Reason: Pain Score 1-5) RF: 0 nicotine 21 MG patch 21 mg TD DAILY Qty: 30 RF: 0 (DME) Dexcom G6 Transmitter Device See Rx Instructions .ROUTE .MEDSUPPLY Qty: 1 RF: 1 (DME) OneTouch Verio test strips Strip See Rx Instructions .ROUTE .MEDSUPPLY Qty: 100 RF: 8 lisinopril 40 mg tablet 40 mg PO DAILY Qty: 90 RF: 1 (DME) FreeStyle Heather 2 Sensor Kit See Rx Instructions .ROUTE .MEDSUPPLY Qty: 2 RF: 6 Farxiga 10 mg tablet 10 mg PO DAILY Qty: 90 RF: 1 Changed Humulin R U-500 (Conc) Kwikpen 500 unit/mL (3 mL) insulin pen See Rx Instructions subcut TID Qty: 27 RF: 5 Referrals / Follow Up: Juan Arteaga MD [STAFF PHYSICIAN] - Within 2 Weeks (May see [employer]TE[employer]) Jaime Meyer Chi, MD [Primary Care Provider] - In 1 Week Disposition Disposition (needs filled in before D/C Order can be placed): Home, Self Care Charges/Coding Addendum Addendum: Patient seen by Monica Barillas NP-Beka under my supervision Patient is a 66-year-old male with a past medical history as outlined which includes type 2 diabetes mellitus who was admitted with a complaint of altered mental status. He was in line at a pharmacy store and started feeling confused. EMS was called and he was found to be hypoglycemic. He was admitted and managed for hyperglycemia and started on D5 infusion. His long-acting and short acting insulin were held. Hypoglycemia subsequently resolved. Patient stated that his short-acting insulin had recently been reduced by his order filler on account of recurrent hypoglycemia. He admitted to eating and drinking well. His A1c was checked and was 6.7. Medical team therefore discussed with patient's order filler Dr. Arteaga who recommended that patient should reduce his insulin U-500 dosing by 20 units for each dose and to continue his Trulicity and Farxiga. Patient was also counseled to monitor his glucose closely. He is to follow-up with his primary care doctor and order filler. Patient seen and examined prior to discharge. He felt better and had no active complaints. Review of systems otherwise negative. Labs and vitals reviewed. Home medication reviewed and reconciled. Physical exam: General appearance: Awake, appropriate, no noted distress HEENT: Normocephalic, head/scalp atraumatic Eyes: Conjunctiva normal and no scleral icterus Neck: Supple, no lymphadenopathy, trachea midline Respiratory: Diminished, clear to auscultation Cardio: regular rate/rhythm GI: Soft, nondistended, nontender, normal active bowel sounds Extremity: Normal capillary refill, no edema Skin: No lesions, no rashes, no breakdown, bandage on LEs Neuro: No focal motor deficits and no sensory deficits noted Psych: Normal affect Plan is for discharge home today. Rest as per Monica Barillas [employer]-C's note, which I have reviewed and endorsed. Total time spent on patient's care today, not limited to chart review, evaluation and management of the patient, and documentation: 25 mins, making a total of 41 mins, with 16 mins by [employer]TE[employer] Visit Charges Inpatient E&M: 45968 Disch Hosp
[2021-10-21 11:30] VITALS: BP 149/71; PULSE 74; RESP 16; TEMP 36.7; O2SAT 94
--- NOTE | 2021-10-21 11:33 | NURSING ---
DC INFORMATION FAXED TO [facility] AT [phone]. CALL PLACED TO FACILITY FOR ONCALL NURSE.
[2021-10-21 14:26] LABS: Bedside Glucose 52 mg/dL (70-110)
== END 2021-10-21 11:45 | disposition home or self-care (01) | DRG 637 ==
LOC: ED 19:36 → MS3 20:25
PROVIDERS: Admitting Provider Family Medicine; Emergency Provider Student in an Organized Health Care Education/Training Program; PCP Family Medicine Geriatric Medicine; Visit Provider Student in an Organized Health Care Education/Training Program
DX: E11.649 Type 2 diabetes mellitus with hypoglycemia without coma (principal); E11.621 Type 2 diabetes mellitus with foot ulcer; E11.51 Type 2 diabetes mellitus with diabetic peripheral angiopathy without gangrene; L97.529 Non-pressure chronic ulcer of other part of left foot with unspecified severity; E11.42 Type 2 diabetes mellitus with diabetic polyneuropathy; E66.01 Morbid (severe) obesity due to excess calories; G93.41 Metabolic encephalopathy; G47.33 Obstructive sleep apnea (adult) (pediatric); R19.7 Diarrhea, unspecified; N40.0 Benign prostatic hyperplasia without lower urinary tract symptoms; I10 Essential (primary) hypertension; E78.2 Mixed hyperlipidemia; F41.9 Anxiety disorder, unspecified; F32.A Depression, unspecified; Z20.822 Contact with and (suspected) exposure to COVID-19; Z79.82 Long term (current) use of aspirin; Z79.1 Long term (current) use of non-steroidal anti-inflammatories (NSAID); Z68.39 Body mass index [BMI] 39.0-39.9, adult; Z79.84 Long term (current) use of oral hypoglycemic drugs; F17.200 Nicotine dependence, unspecified, uncomplicated
CPT/HCPCS: 36415; 80048; 80053; 82962; 83036; 83735; 84443; 85025; 87426; 96360; 96361; 96372; 99218; 99284; 99406; J7030; J7050; A4216; G0378; J7799

== ENCOUNTER 2021-10-24 14:36 | Outpatient (CLI) | payer MEDICARE, MEDICAID, SELFPAY ==
[2021-10-24 17:11] LABS: Absolute Lymphocyte Count 2.21 X10^3/uL (0.83-4.51); Absolute Neutrophil Count 7.1 X10^3/uL (2.0-7.7); Basophil# 0.13 X10^3/uL; Basophil% 1.2 % (0-1); Eosinophil# 0.33 X10^3/uL; Hematocrit 49.9 % (40-54); Hemoglobin 15.6 g/dL (13.0-16.5); Lymphocyte # 2.21 X10^3/ul (0.83-4.51); Lymphocyte % 20.4 % (19-41); Mean Corp Hgb Conc 31.3 g/dL (32-36); Mean Corpuscular Hgb 27.8 pg (27.0-32.0); Mean Corpuscular Volume 88.8 fL (80-94); Mean Platelet Vol. 10.6 fl (6.2-12.0); Monocyte# 0.96 X10^3/uL; Monocyte% 8.9 % (0-10); NRBC Flagged by Analyzer 0 % (0-5); Neutrophil # 7.07 X10^3/uL (2.7-7.7); Neutrophil % 65.3 % (47-70); Platelet Count 293 K/mm3 (150-450); RBC Distribution Width CV 16.5 % (11.6-14.6); RBC Distribution Width SD 53.8 fl (35.1-43.9); Red Blood Count 5.62 M/mm3 (4.6-6.2); White Blood Count 10.8 K/mm3 (4.4-11.0)
[2021-10-24 17:51] LABS: ALB/GLOB Ratio 0.7 RATIO (0.9-2.4); AST(SGOT) 16 U/L (15-37); Alanine Aminotransfer ALT/SGPT 34 U/L (16-61); Albumin, Serum 3.3 g/dL (3.2-5.0); Alkaline Phosphatase 103 U/L (45-117); Anion Gap 3 (5-15); BUN 14 mg/dL (7-18); BUN/Creat Ratio 16.5 RATIO (10-20); Calcium,Total 9.2 mg/dL (8.5-10.1); Chloride 104 mmol/L (98-107); Creatinine, Serum 0.85 mg/dL (0.70-1.30); EST Glomerular Filtration Rate 96 mL/min (>60); Est Glom Filt Rate - Afr Amer 117 mL/min (>60); Globulin 4.9 g/dL (2.2-4.2); Glucose 39 mg/dL (74-106); Potassium 4.2 mmol/L (3.5-5.1); Protein, Total 8.2 g/dL (6.4-8.2); Sodium Level 138 mmol/L (136-145); Thyroid Stim Hormone (TSH) 2.48 uIU/mL (0.358-3.74)
== END 2021-10-24 23:59 | disposition short-term general hospital (02) ==
LOC: POLAB3 14:38
PROVIDERS: PCP Family Medicine Geriatric Medicine; Visit Provider Family Medicine Geriatric Medicine
DX: E11.9 Type 2 diabetes mellitus without complications (principal); I10 Essential (primary) hypertension; F52.8 Other sexual dysfunction not due to a substance or known physiological condition
CPT/HCPCS: 36415; 80053; 84403; 84443; 85025

== ENCOUNTER 2021-11-01 22:28 | Inpatient (IN) | payer MEDICARE, MEDICAID, SELFPAY ==
--- NOTE | 2021-11-01 | RAD_ITS ---
STUDY: X-RAY - ACUTE ABDOMINAL SERIES REASON FOR EXAM: Male, 66 years old patient with chest and abdominal pain TECHNIQUE: Single view of the chest. Supine, erect, and decubitus view(s) of the abdomen were obtained. COMPARISON: Chest radiograph dated 09/11/2020. FINDINGS: The lungs are hyperexpanded. There are prominent bronchovascular markings in both lungs. There is borderline cardiomegaly. Normal mediastinum and meche. There is prominence of the pulmonary hilar arteries with peripheral pulmonary vascular congestion. Normal visualized aortic arch and descending thoracic aorta. There is no obvious organomegaly, mass, dilated bowel or pathologic calcifications. There are diffuse degenerative changes of the visualized spine. RAD/Acute Abdomen Inc Chest IMPRESSION: 1. Mild pulmonary vascular congestion. 2. There is no evidence for pneumoperitoneum. 3. Nonspecific bowel gas pattern. Electronically Signed: Mariela Alonso MD at 1:18 EST ,
[2021-11-01 22:29] VITALS: BP 142/97; PULSE 104; PULSE 109; RESP 22; TEMP 35.6; O2SAT 96; BMI 43.8
--- NOTE | 2021-11-01 22:42 | RAD_ITS ---
STUDY: X-RAY - SOFT TISSUE NECK REASON FOR EXAM: Male, 66 years old patient with neck pain. TECHNIQUE: AP and lateral view(s) of the neck were obtained. COMPARISON: Prior comparable comparison studies are not available for review at this time. FINDINGS: Normal visualized nasopharynx, oropharynx, hypopharynx. The epiglottis is mildly prominent possibly secondary to patient rotation. There is symmetric narrowing of the subglottic tracheal air column with loss of the normal shoulders of the upper airway, producing a steeple appearance, consistent with acute laryngotracheobronchitis (croup). Normal prevertebral soft tissue structures. The bones are osteopenic. There are multilevel degenerative changes of the cervical spine. There are prominent bronchovascular markings at the lung apices. RAD/Neck for Soft Tissue IMPRESSION: 1. Questionable croup. 2. Mild prominence of the epiglottis. Electronically Signed: Mariela Alonso MD at 1:15 EST ,
--- NOTE | 2021-11-01 22:42 | EKG12_ITS ---
Test Reason : DYSRHYTHMIA Blood Pressure : / mmHG Vent. Rate : 097 BPM Atrial Rate : 097 BPM P-R Int : 178 ms QRS Dur : 104 ms QT Int : 338 ms P-R-T Axes : 065 065 071 degrees QTc Int : 429 ms Normal sinus rhythm Normal ECG Confirmed by EMMA VACA, JANE ([id number]), online editor CHERYL EDWARD ([id number]) on 11/02/2021 11:10:25 AM Referred By: Shannon Chavez Confirmed By:JANE CARTER MD
[2021-11-01] MEDS: Ondansetron 4 MG/2 ML Vial IV (23:35)
[2021-11-01] MEDS: 0.9% Normal Saline 1,000 ML 999 ML IV (23:40)
[2021-11-01 23:55] VITALS: BP 157/73; PULSE 102; RESP 18; O2SAT 94
--- NOTE | 2021-11-01 23:56 | EDS_ITS ---
HPI History of Present Illness Chief Complaint: Constipation Narrative Narrative: Patient is a 66-year-old male with past medical history of diabetes. He states that this evening he was sitting in his living room when the next and he remembers is waking up on his floor with bouts of vomiting. He states that the vomit was dark in color concerning for blood. He denies any history of bleeding disorder or blood thinner use. He denies any excessive alcohol use or nonsteroidal anti-inflammatory use. Patient does admit to a large amount of caffeine daily but denies any previous history of gastric ulcer. Patient also states he was just recently in the hospital about 2 weeks ago secondary to the passing out event. At this time as he is persistently nauseous and having dark bouts of emesis concerning for bloody contact EMS and was brought in for evaluation [facility] Medical History BPH (benign prostatic hyperplasia) CPAP (continuous positive airway pressure) dependence Erectile dysfunction HTN (hypertension) Hyperlipidemia Hyperlipidemia Hypertension Hypokalemia Neuropathic pain Obesity Sleep apnea Smoker Tobacco abuse Type 2 diabetes mellitus Type 2 diabetes mellitus with diabetic polyneuropathy Home Medications calcium carbonate 500 mg PO DAILY 06/23/17 [History Last Taken 06/23/17] multivitamin 1 ea PO DAILY 06/23/17 [History Last Taken 06/23/17] atorvastatin 40 mg tablet 40 mg PO DAILY 10/18/19 [History Last Taken 08/31/20 22:39] bupropion HCl 150 mg 24 hr tablet, extended release 150 mg PO BID tab 10/18/19 [History Last Taken 09/01/20 08:27] tamsulosin 0.4 mg capsule 0.4 mg PO DAILY@1730 cap 10/18/19 [History Last Taken 08/31/20 17:28] gabapentin 300 mg capsule 600 mg PO TIDCM cap 04/24/20 [History Last Taken 09/01/20 13:15] aspirin 81 mg tablet,delayed release 81 mg PO DAILY tab 07/28/20 [History Last Taken Unknown] lancets 09/01/20 [History Last Taken Unknown] acetaminophen 1,000 mg PO Q6H PRN tab 10/03/20 [Rx Last Taken Unknown] tramadol 50 mg PO Q6H PRN PRN #28 tab 10/03/20 [Rx Last Taken Unknown] naproxen 500 mg tablet 500 mg PO BID PRN 10/31/20 [History Last Taken Unknown] blood-glucose transmitter #1 ea 11/30/20 [Rx Last Taken Unknown] dulaglutide 0.75 mg/0.5 mL subcutaneous pen injector 0.75 mg SUBCUT QWEEK #2 ml 07/26/21 [Rx Last Taken Unknown] blood sugar diagnostic #100 ea 08/06/21 [Rx Last Taken Unknown] lisinopril 40 mg tablet 40 mg PO DAILY #90 tab 08/06/21 [Rx Last Taken Unknown] flash glucose sensor #2 ea 08/23/21 [Rx Last Taken Unknown] Farxiga 10 mg tablet 10 mg PO DAILY #90 tab NS 09/03/21 [Rx Last Taken Unknown] Humulin R U-500 (Conc) Kwikpen 500 unit/mL (3 mL) subcutaneous 110 unit SUBCUT TID #27 ml NS 10/22/21 [Rx Last Taken Unknown] Allergy/AdvReac Type Severity Reaction Status Date / Time Sulfa (Sulfonamide Allergy Rash Verified 09/24/21 10:23 Antibiotics) Family History Father Myocardial infarction Heart disease Mother Kidney disease Diabetes Sister Asthma Breast cancer Hypertension Brother Alcoholism Melanoma Surgical History History of ankle surgery History of deviated nasal septum History of hernia repair History of oral surgery History of transmetatarsal amputation of left foot History of vasectomy Social History (Updated 11/02/21 @ 02:[address] Shannon Chavez MD) household members: none Smoking Status: Current every day smoker tobacco type: cigarettes Smoking packs per day: 1 Smoking cigarettes per day: 20.0 Years smoked: 40 Smoking pack-years: 40.00 alcohol intake: never substance use type: does not use what type of physical activity do you participate in: none ROS ROS ED Constitutional Constitutional ED: Denies chills or fever(s) ENT ENT ED: Reports sore throat Cardiovascular Cardiovascular: Denies chest pain, palpitations or racing heartbeat Respiratory/Chest Respiratory/Chest: Denies cough or dyspnea Gastrointestinal Gastrointestinal: Reports nausea, vomiting and other Details: Positive hematemesis ; Denies abdominal pain, diarrhea or melena Genitourinary Genitourinary ED: Denies dysuria Musculoskeletal Musculoskeletal: Denies back pain or myalgias Integumentary Denies rash Neurologic Neurologic: Denies headache(s) Hematologic/Lymphatic Hematologic/Lymphatic: Denies easy bleeding or easy bruising EXAM Physical Exam Const Vital Signs: 11/01/21 22:29 11/01/21 23:55 11/02/21 01:00 Temperature 96.0 F L Temperature Source Temporal Pulse Rate 104 H 102 H 118 H Respiratory Rate 22 H 18 16 Blood Pressure 142/97 H 157/73 H 147/96 H Blood Pressure Mean 112 101 113 Pulse Ox 96 94 91 Oxygen Delivery Method Room Air Room Air 11/02/21 01:22 Temperature Temperature Source Pulse Rate 77 Respiratory Rate 16 Blood Pressure 141/75 H Blood Pressure Mean 97 Pulse Ox Oxygen Delivery Method Positive well nourished, well developed and obese General Appearance ED: well developed Nutritional Appearance: obese HEENT Reports moist mucous membranes HEENT Narrative: Patient has soft tissue swelling in the posterior pharynx but no dried blood or active bleeding noted. No airway compromise present Eyes PERRL and EOMs intact bilaterally Neck supple Neck Narrative: No pain with extended ambulation of the thyroid cartilage no crepitance palpated Chest Wall palpation of chest normal Resp normal respiratory effort and clear to auscultation bilaterally Resp Narrative: Breath sounds are diminished throughout but overall clear to auscultation Cardio regular rate and regular rhythm Rate: other Other Details: Radial pulses are +2-4 bilaterally are equal and symmetric GI normal to inspection, nondistended, normoactive bowel sounds, non-tender and non-distended GI Narrative: Patient has a reducible umbilical hernia which is chronic in nature otherwise no voluntary guarding or rigidity no pulsatile mass Auscultation: normoactive bowel sounds Palpation: soft Narrative: Rectal tone is normal and stool is mucousy brown in color Extremity Extremity Narrative: Patient 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 He had dark emesis on his shirt and face concerning for a upper GI bleed. He reported pain in his throat and on exam he has swelling to his uvula and surrounding soft palate but no airway edema or obvious infectious process and I felt this is most like related to his recent bouts of retching. Based on the patient's hematemesis a basic work-up was obtained. His white count is elevated 18.4 but his hemoglobin and hematocrit as well as platelet count are normal. A cardiac work-up was added based on his report of syncope and his EKG is technically normal sinus rhythm and troponin normal. X-rays of his neck and abdomen were obtained. The abdominal x-ray revealed no acute findings or perforation and x-ray of the soft tissue neck question possible epiglottitis. This x-ray read along with his white count was concerning enough that vancomycin and Rocephin were given. On reevaluation the patient is now had reduction in his blood pressure to a systolic of approximately 95 and his heart rate is increased despite the patient receiving a Protonix bolus and drip. He also has more soft tissue swelling to his uvula and surrounding soft palate with increased secretions. Therefore he was given racemic epinephrine as well as inhaled TXA and IV Decadron. This did seem to improve his secretions but the uvula and surrounding soft tissue structures remained edematous. Patient will receive a CT scan of his soft tissue neck because of his swelling white count and abnormal x-ray. He will also need to be admitted to the ICU because of his blood pressure dropping his heart rate elevating and the possibility of airway compromise. Lab Data Attestation: I reviewed the patient's lab results. Labs: Laboratory Results - last 24 hr 11/01/21 11/01/21 11/01/21 23:45 23:45 23:45 WBC 18.4 H RBC 5.95 Hgb 16.5 Hct 49.9 MCV 83.9 MCH 27.7 MCHC 33.1 RDW Std Deviation 48.5 H RDW Coeff of Fatuma 16.0 H Plt Count 274 MPV 10.1 Immature Gran % (Auto) 1.900 H Neut % (Auto) 87.1 H Lymph % (Auto) 4.5 L Stanly % (Auto) 6.2 Eos % (Auto) 0.0 Baso % (Auto) 0.3 Absolute Neuts (auto) 16.1 H Absolute Lymphs (auto) 0.82 L Nucleated RBC % 0 PT 14.3 INR 1.2 APTT 35.3 Sodium 135 L Potassium 4.4 Chloride 101 Carbon Dioxide 28.0 Anion Gap 6 BUN 14 Creatinine 0.90 Estim Creat Clear Calc 95.14 Est GFR (MDRD) Af Amer 108 Est GFR (MDRD) Non-Af 89 BUN/Creatinine Ratio 15.5 Glucose 73 L Lactic Acid Calcium 8.9 Total Bilirubin 0.40 Direct Bilirubin 0.13 AST 17 ALT 21 Alkaline Phosphatase 86 Troponin I High Sens 7 Total Protein 8.0 Albumin 3.0 L Globulin 5.0 H Lipase < 10 L Procalcitonin Blood Type Antibody Screen 11/01/21 11/01/21 11/01/21 23:45 23:45 23:54 WBC RBC Hgb Hct MCV MCH MCHC RDW Std Deviation RDW Coeff of Fatuma Plt Count MPV Immature Gran % (Auto) Neut % (Auto) Lymph % (Auto) Stanly % (Auto) Eos % (Auto) Baso % (Auto) Absolute Neuts (auto) Absolute Lymphs (auto) Nucleated RBC % PT INR APTT Sodium Potassium Chloride Carbon Dioxide Anion Gap BUN Creatinine Estim Creat Clear Calc Est GFR (MDRD) Af Amer Est GFR (MDRD) Non-Af BUN/Creatinine Ratio Glucose Lactic Acid 1.6 Calcium Total Bilirubin Direct Bilirubin AST ALT Alkaline Phosphatase Troponin I High Sens Total Protein Albumin Globulin Lipase Procalcitonin 0.25 H Blood Type A POSITIVE Antibody Screen NEGATIVE Radiography Diagnostic Testing: Clinical Impression(s) from Imaging Studies Acute Abdomen Series 11/01/21 00:00 IMPRESSION: 1. Mild pulmonary vascular congestion. 2. There is no evidence for pneumoperitoneum. 3. Nonspecific bowel gas pattern. Electronically Signed: Mariela Alonso MD at 1:18 EST , Soft Tissue Neck X-Ray 11/01/21 22:42 IMPRESSION: 1. Questionable croup. 2. Mild prominence of the epiglottis. Electronically Signed: Mariela Alonso MD at 1:15 EST , Critical Care Time Critical Care Time: Yes Critical care time (excluding procedures): - (Critical care time of 31 minutes) Discharge Plan Triage Chief Complaint: Constipation ED Provider: Jono Cantrell Dx/Rx/DC Orders Clinical Impression: Hematemesis, Syncope, Acute epiglottitis Primary Care Provider: Jaime Meyer Chi Disposition Disposition: Acute Care Hospital [facility]
[2021-11-02] VITALS (24 sets, daily range): BP systolic 98–180; BP diastolic 36–123; PULSE 77–118; RESP 12–26; TEMP 36.2–37.6; O2SAT 90–97
--- NOTE | 2021-11-02 | ESO_PTH ---
PATIENT: GEN SIM LOC: [facility] U#:[id number] AGE/SX: 66/M ROOM: [facility] RE11/02/[address]: Dr. Roni Alberto DO : 1955 BED: 1 DIS: 11/05/2021 SPEC #: [id number] RECD: 11/02/21 14:17 STATUS: LEELA REJennie #: [id number] SERAFIN: 11/02/21 00:[address]: Juan Middleton DEPT: SURGICAL PATHOLOGY RECD BY: Serafin May ENTERED: 11/05/21 11:23 SP TYPE: ESOPH BX OTHR DR: MD Dr. Adriel Gerard MD Dr. Derek Brown, DO Dr. Roni Alberto, DO Dr. Juan Middleton, MD Dr. Jaime Lyle Dr., Chi, MD Tissues: Esophagus, NOS Procedures: Special Stain Group I Surgery Specimen Level IV GMS Stain (control) Comments: @ Ordering doctor for SUIV edited from to @ by SEUN at 11/05/21 1506 @ Submitting doctor edited from to @ by SRINIVASOD at 11/05/21 1506 HEADER OPERATION: EGD with biopsy (MAC) PRE-OP DIAGNOSIS: Hematemesis TISSUE SUBMITTED: Proximal esophagus biopsy MICROSCOPIC DIAGNOSIS Proximal esophagus, biopsy: Fibrinopurulent material suggestive of ulceration. Negative for fungal organisms. See comment. AM:benigno 11/06/2021 COMMENT GMS stain with matched control was used in the evaluation of this case. MICROSCOPIC DESCRIPTION Slides are reviewed. GROSS DESCRIPTION Received in fixative is one container labeled with the patient's name and designated proximal esophagus biopsy. The specimen consists of multiple irregular fragments of light mora soft tissue that in aggregate measure 0.5 x 0.2 x 0.1 cm. The specimen is totally submitted in one cassette. / SJ:benigno 11/05/2021 TC:2 CPT: 99953, 30697
[2021-11-02 00:35] LABS: Absolute Lymphocyte Count 0.82 X10^3/uL (0.83-4.51); Absolute Neutrophil Count 16.1 X10^3/uL (2.0-7.7); Basophil# 0.06 X10^3/uL; Basophil% 0.3 % (0-1); Hematocrit 49.9 % (40-54); Hemoglobin 16.5 g/dL (13.0-16.5); Lymphocyte # 0.82 X10^3/ul (0.83-4.51); Lymphocyte % 4.5 % (19-41); Mean Corp Hgb Conc 33.1 g/dL (32-36); Mean Corpuscular Hgb 27.7 pg (27.0-32.0); Mean Corpuscular Volume 83.9 fL (80-94); Mean Platelet Vol. 10.1 fl (6.2-12.0); Monocyte# 1.14 X10^3/uL; Monocyte% 6.2 % (0-10); NRBC Flagged by Analyzer 0 % (0-5); Neutrophil # 16.05 X10^3/uL (2.7-7.7); Neutrophil % 87.1 % (47-70); Platelet Count 274 K/mm3 (150-450); RBC Distribution Width SD 48.5 fl (35.1-43.9); Red Blood Count 5.95 M/mm3 (4.6-6.2); White Blood Count 18.4 K/mm3 (4.4-11.0)
[2021-11-02 00:49] LABS: AST(SGOT) 17 U/L (15-37); Alanine Aminotransfer ALT/SGPT 21 U/L (16-61); Alkaline Phosphatase 86 U/L (45-117); Anion Gap 6 (5-15); BUN 14 mg/dL (7-18); BUN/Creat Ratio 15.5 RATIO (10-20); Bilirubin, Direct 0.13 mg/dL (0.00-0.30); Calcium,Total 8.9 mg/dL (8.5-10.1); Chloride 101 mmol/L (98-107); EST Glomerular Filtration Rate 89 mL/min (>60); Est Glom Filt Rate - Afr Amer 108 mL/min (>60); Estimated Creatinine Clearance 95.14 ml/min; Glucose 73 mg/dL (74-106); Lactic Acid 1.6 mmol/L (0.4-1.9); Lipase < 10 U/L (73-393); Potassium 4.4 mmol/L (3.5-5.1); Sodium Level 135 mmol/L (136-145); Troponin-I HS 7 pg/mL (3.0-78.0)
[2021-11-02 00:57] LABS: International Normalized Ratio 1.2; Prothrombin Time (Protime)PT. 14.3 SECONDS (11.7-14.9)
[2021-11-02 00:58] LABS: Partial Thromboplast Time 35.3 Seconds (24.1-36.2)
--- NOTE | 2021-11-02 01:39 | PCM.HP.STD ---
HPI - General General Date of Admission: 11/02/21 Date of Service: 11/02/21 Chief Complaint: N/V, ? GI bleed, sore throat, low BS, syncopal event HPI Narrative The patient is a 66 y/o M w/ PMHx: Morbid Obesity, ANT on CPAP, HTN, HLD, BPH, Diabetes mellitus type with chronic neuropathy, Chronic Diabetic Wounds, Tobacco use who presents to the [facility] ED on 11/01/21 with ongoing nausea throughout the day with poor oral intake ability with hyperglycemia with onset of syncopal events, waking on the floor with bouts of dark appearing emesis prompted EMS call with noted blood glucose at that time 43 with D10 amp administered as well as OJ with repeat blood culture prior to ED presentation 66. Patient notes that earlier in the day upon awakening he had a mild sore throat that is steadily worsened and upon evaluation in the ED even since initial ED presentation has increased saliva, some difficulty swallowing and more sore throat as well as sensation of swelling. Patient reports that he was hospitalized 2 weeks prior to current presentation secondary to syncopal event. Patient notes that he has not been around anyone has been ill. Work-up in the ED included T 96, heart rate 104, BP 142/97, respiratory rate 22, 96% on room air, CBC with WC 10.4, hemoglobin 16.5, platelet 274 with left shift and lymphopenia, coags unremarkable, CMP with sodium 135, glucose 73, lactic acid 1.6 otherwise Paddock profile unremarkable, lipase less than 10, troponin VII, type and screen performed per ED physician, plain soft tissue film of the neck with questionable croup with mild prominence of the epiglottis, acute abdominal series with mild pulmonary vascular congestion with no evidence of pneumoperitoneum with nonspecific bowel gas pattern. [facility] Medical History BPH (benign prostatic hyperplasia) CPAP (continuous positive airway pressure) dependence Erectile dysfunction HTN (hypertension) Hyperlipidemia Hyperlipidemia Hypertension Hypokalemia Neuropathic pain Obesity Sleep apnea Smoker Tobacco abuse Type 2 diabetes mellitus Type 2 diabetes mellitus with diabetic polyneuropathy Home Medications calcium carbonate 500 mg PO DAILY 06/23/17 [History Last Taken 06/23/17] multivitamin 1 ea PO DAILY 06/23/17 [History Last Taken 06/23/17] atorvastatin 40 mg tablet 40 mg PO DAILY 10/18/19 [History Last Taken 08/31/20 22:39] bupropion HCl 150 mg 24 hr tablet, extended release 150 mg PO BID tab 10/18/19 [History Last Taken 09/01/20 08:27] tamsulosin 0.4 mg capsule 0.4 mg PO DAILY@1730 cap 10/18/19 [History Last Taken 08/31/20 17:28] gabapentin 300 mg capsule 600 mg PO TIDCM cap 04/24/20 [History Last Taken 09/01/20 13:15] aspirin 81 mg tablet,delayed release 81 mg PO DAILY tab 07/28/20 [History Last Taken Unknown] lancets 09/01/20 [History Last Taken Unknown] acetaminophen 1,000 mg PO Q6H PRN tab 10/03/20 [Rx Last Taken Unknown] tramadol 50 mg PO Q6H PRN PRN #28 tab 10/03/20 [Rx Last Taken Unknown] naproxen 500 mg tablet 500 mg PO BID PRN 10/31/20 [History Last Taken Unknown] blood-glucose transmitter #1 ea 11/30/20 [Rx Last Taken Unknown] dulaglutide 0.75 mg/0.5 mL subcutaneous pen injector 0.75 mg SUBCUT QWEEK #2 ml 07/26/21 [Rx Last Taken Unknown] blood sugar diagnostic #100 ea 08/06/21 [Rx Last Taken Unknown] lisinopril 40 mg tablet 40 mg PO DAILY #90 tab 08/06/21 [Rx Last Taken Unknown] flash glucose sensor #2 ea 08/23/21 [Rx Last Taken Unknown] Farxiga 10 mg tablet 10 mg PO DAILY #90 tab NS 09/03/21 [Rx Last Taken Unknown] Humulin R U-500 (Conc) Kwikpen 500 unit/mL (3 mL) subcutaneous 110 unit SUBCUT TID #27 ml NS 10/22/21 [Rx Last Taken Unknown] Allergy/AdvReac Type Severity Reaction Status Date / Time Sulfa (Sulfonamide Allergy Rash Verified 09/24/21 10:23 Antibiotics) Family History Father Myocardial infarction Heart disease Mother Kidney disease Diabetes Sister Asthma Breast cancer Hypertension Brother Alcoholism Melanoma Surgical History History of ankle surgery History of deviated nasal septum History of hernia repair History of oral surgery History of transmetatarsal amputation of left foot History of vasectomy Social History (Updated 11/02/21 @ 02:[address] Shannon Chavez MD) household members: none Smoking Status: Current every day smoker tobacco type: cigarettes Smoking packs per day: 1 Smoking cigarettes per day: 20.0 Years smoked: 40 Smoking pack-years: 40.00 alcohol intake: never substance use type: does not use what type of physical activity do you participate in: none ROS ROS Narrative Admission Review of Systems: CONSTITUTIONAL: No weight loss, fever, chills, + weakness or fatigue. HEENT: + Sore throat, sensation of swelling in his throat, increased sputum production and dysphagia. Eyes: No visual loss, blurred vision, double vision or yellow sclerae. Ears, Nose, Throat: No hearing loss, sneezing, congestion, runny nose or sore throat. SKIN: No rash or itching, lesions, wounds. CARDIOVASCULAR: No chest pain, chest pressure or chest discomfort, palpitations, edema, orthopnea, syncopal events. RESPIRATORY: No shortness of breath, cough or sputum, wheezing, hemoptysis. GASTROINTESTINAL: + anorexia, nausea, vomiting, concerns of dark potentially coffee-ground emesis, No diarrhea, abdominal pain, BRBPR. GENITOURINARY: No dysuria, frequency, urgency or retention. NEUROLOGICAL: No headache, dizziness, syncope, paralysis, ataxia, numbness or tingling in the extremities, focal weakness, change in bowel or bladder control, seizure. MUSCULOSKELETAL: + muscle, back pain, joint pain or stiffness. HEMATOLOGIC: + anemia, bleeding or bruising. LYMPHATICS: No enlarged nodes. No history of splenectomy. PSYCHIATRIC: + history of depression or anxiety. ENDOCRINOLOGIC: No reports of sweating, cold or heat intolerance. No polyuria or polydipsia. ALLERGIES: No history of asthma, hives, eczema or rhinitis. Vital Signs Vital Signs Vital Signs: 11/01/21 22:29 11/01/21 23:55 11/02/21 01:00 Temperature 96.0 F L Temperature Source Temporal Pulse Rate 104 H 102 H 118 H Respiratory Rate 22 H 18 16 Blood Pressure 142/97 H 157/73 H 147/96 H Blood Pressure Mean 112 101 113 Pulse Ox 96 94 91 Oxygen Delivery Method Room Air Room Air 11/02/21 01:22 Temperature Temperature Source Pulse Rate 77 Respiratory Rate 16 Blood Pressure 141/75 H Blood Pressure Mean 97 Pulse Ox Oxygen Delivery Method Weight Weight: 341 lb 4.409 oz Body Mass Index (BMI) 43.8 Physical Exam Narrative Physical Examination: General: Awake, alert, oriented x 3 and cooperative, seated upright in the ED bed, fatigued, notable sputum production, clear, notes worsening sore throat and sensation of swelling. Skin: Normal color, normal turgor, no icterus, no cyanosis except bilateral lower extremity stasis as well as chronic diabetic wounds status post prior midportion left foot amputation. HEENT: AT/NC, EOMI, PERRLA, MMM, significant marked sputum production, notable posterior oropharynx erythema and significant swelling, no carotid bruits or JVD noted; however thickened neck makes examination difficult especially with acute presentation. Lungs: Diminished, greater bases, mildly increased respiratory rate, no rales, ronchi or wheezing. Heart: Currently mildly tachycardic with regular rhythm; no gallop, rub audible. Abdomen: Soft, umbilical hernia present, morbidly obese, NTTP, ND, distant normal BS, no obvious evidence of HSM; however, habitus makes examination difficult. Extremities: No cyanosis, no clubbing, see skin. Neurological: Patient awake, alert, oriented as noted, cognitive function intact; pupils equally reactive to light and accommodation, cranial nerves II-XII grossly normal, moving all 4 extremities, no focal deficits, strength severely global decrease secondary to acute presentation. Psychiatric: Affect appears ill, concern for airway with worsening oropharynx appearance since even ED presentation which was reviewed and discussed with ED physician, no acute evidence of depressive or anxiety feelings. Results Lab / Micro Data Result Diagrams: 11/01/21 23:45 11/01/21 23:45 Labs: Laboratory Results - last 24 hr 11/01/21 23:45: WBC 18.4 H, RBC 5.95, Hgb 16.5, Hct 49.9, MCV 83.9, MCH 27.7, MCHC 33.1, RDW Std Deviation 48.5 H, RDW Coeff of Fatuma 16.0 H, Plt Count 274, MPV 10.1, Immature Gran % (Auto) 1.900 H, Neut % (Auto) 87.1 H, Lymph % (Auto) 4.5 L, Sierra % (Auto) 6.2, Eos % (Auto) 0.0, Baso % (Auto) 0.3, Absolute Neuts (auto) 16.1 H, Absolute Lymphs (auto) 0.82 L, Nucleated RBC % 0 11/01/21 23:45: PT 14.3, INR 1.2, APTT 35.3 11/01/21 23:45: Sodium 135 L, Potassium 4.4, Chloride 101, Carbon Dioxide 28.0, Anion Gap 6, BUN 14, Creatinine 0.90, Estim Creat Clear Calc 95.14, Est GFR (MDRD) Af Amer 108, Est GFR (MDRD) Non-Af 89, BUN/Creatinine Ratio 15.5, Glucose 73 L, Calcium 8.9, Total Bilirubin 0.40, Direct Bilirubin 0.13, AST 17, ALT 21, Alkaline Phosphatase 86, Troponin I High Sens 7, Total Protein 8.0, Albumin 3.0 L, Globulin 5.0 H, Lipase < 10 L 11/01/21 23:45: Lactic Acid 1.6 11/01/21 23:45: Blood Type A POSITIVE, Antibody Screen NEGATIVE Micro: Microbiology 11/01/21 23:30 Vomitus Gastric Occult Blood - Final Occult Blood Positive Radiology Impression Acute Abdomen Series 11/01/21 00:00 IMPRESSION: 1. Mild pulmonary vascular congestion. 2. There is no evidence for pneumoperitoneum. 3. Nonspecific bowel gas pattern. Electronically Signed: Mariela Alonso MD at 1:18 EST Reading Location ID and State: [facility] / [place] , Service support , Soft Tissue Neck X-Ray 11/01/21 22:42 IMPRESSION: 1. Questionable croup. 2. Mild prominence of the epiglottis. Electronically Signed: Mariela Alonso MD at 1:15 EST , Assessment & Plan Assessment/Plan (1) Epiglottitis: (2) GI bleed: QUALIFIERS: GI bleed type/associated pathology: unspecified gastrointestinal hemorrhage type Qualified Code(s): K92.2 - Gastrointestinal hemorrhage, unspecified (3) Hypoglycemia: (4) Syncope: QUALIFIERS: Syncope type: unspecified Qualified Code(s): R55 - Syncope and collapse PLAN: The patient is a 66 y/o M w/ PMHx: Morbid Obesity, ANT on CPAP, HTN, HLD, BPH, Diabetes mellitus type with chronic neuropathy, Chronic Diabetic Wounds, Tobacco use who presents to the [facility] ED on 11/01/21 with ongoing nausea throughout the day with poor oral intake ability with hyperglycemia with onset of syncopal events, waking on the floor with bouts of dark appearing emesis prompted EMS call with noted blood glucose at that time 43 with D10 amp administered as well as OJ with repeat blood culture prior to ED presentation 66 with reported sore throat concurrently starting in the AM and worsening. #1. Acute epiglottitis with airway compromise concern: Soft tissue plain film in the ED with questionable mild prominence of the epiglottis with questionable croup, given WBC elevation and left shift to be cautious discussed with ED physician and initiated on Rocephin and vancomycin, administered IV Decadron x1 per ED physician as well as racemic epi, tranexamic acid, pending CT soft tissue neck upon admission.given worsening airway even since ED presentation will admit to the ICU, will request repair table operator consultation as well as ENT involvement in case airway worsens, continue IV Rocephin and vancomycin, requested respiratory viral panel, maintain on IV PPI, n.p.o. status. #2. Questionable Acute GI Bleed w/ resultant Acute Blood Loss Anemia: Will admit to PCU, maintain on IVFs, obtain serial H+Hs, T+S already obtained per ED physician, maintain on IV PPI, maintain NPO status. Will request GI consultation given atypical case to be cautious. #3. Diabetes mellitus type II with hypoglycemia with neuropathy: Likely associate with acute presentation #1, will hold oral and home insulin regimen, n.p.o. status, maintain on D5 NS with close serial blood sugar monitoring. We will continue patient home gabapentin regimen. Recent HgbA1c < 7% with recent syncopal event associated per record with hypoglycemia. #4. Syncopal Event: Unclear etiololgy, likely related to #1, #2, #3, EKG in ED w/ sinus rhythm without evidence of acute ischemia, CXR w/ mild congestion, initial trop normal. Will place on a monitored bed to assure no acute myocardial infarction with serial cardiac enzymes and EKGs. Will maintain on fall precautions, obtain admission orthostatic and AM orthostatic VS and increase hydration if appropriate. ECHO ordered to be cautious. #5. Hypertension: Continue home regimen including lisinopril with hold parameters as needed, PRN hydralazine. #6. Hyperlipidemia: We will continue patient on statin therapy. #7. Anxiety and depression: We will continue patient home bupropion regimen. #8. Morbid Obesity: Weight loss and lifestyle changes encouraged. #9. GERD: We will maintain on PPI as noted. #10. ANT: Given ongoing issues with nausea and emesis will avoid placing CPAP at this time until clinically improved. #11. Tobacco Abuse: Encouraged cessation, inpatient consultation per RT, NR if desired. #12. Chronic diabetic left foot ulceration, right leg ulceration: Patient following with podiatry, Dr. Hansen on with most recent evaluation 11/13, wound RN consulted, continue care with hydrogel and gauze to the left foot and hydrogel and Adaptic to the right leg ulcer. #13. DVT prophylaxis: SCDs, defer any chemoprophylaxis given acute presentation as noted. Charges/Coding Visit Charges Inpatient E&M: 25319 Init Hosp L3
--- NOTE | 2021-11-02 01:45 | CT_ITS ---
STUDY: CT SOFT TISSUE NECK WITH CONTRAST REASON FOR EXAM: Male, 66 years old. Pain / abnormal x-ray RADIATION DOSAGE (If Supplied By Facility): CTDIvol = ( 20.30 ) mGy, DLP = ( 1163.85 ) mGycm TECHNIQUE: The patient was scanned in a multi-detector CT scanner. High resolution transaxial imaging was performed following intravenous administration of IV 100mL [id number]-300. Sagittal and coronal images were reconstructed. The contrast bolus is limited Individualized dose optimization techniques were used for this CT. COMPARISON: Neck soft tissue November 02, 2021 FINDINGS: Normal bilateral parotid glands. Normal bilateral warp dyeing tender spaces. Normal bilateral parapharyngeal spaces. Normal bilateral carotid spaces. Normal bilateral sublingual and submandibular glands and spaces. Normal visualized nasopharynx. Normal retropharyngeal space. Normal perivertebral space. There is an enlarged appearance of the partial tonsils. There is a also enlargement of the adenoids allowing for technique. There is no visualized focal enhancing mass allowing for the level of contrast enhancement. The visualized tongue, tongue base and oropharynx are normal. There are enlarged reactive appearing lymph nodes in the right side one with a fatty center measuring 1.9 to 0.8 cm one measuring 1.5 cm. There is no demonstrated solid or cystic mass lesion. There is no abnormal contrast enhancement. The thickened appearance of the epiglottis. This measures up to 6.1 mm typically measures less than 5 mm. The pre-epiglottic and paraglottic adipose spaces are normal. There is a slightly narrowed appearance of the airway at the level of vocal cords. This is nonspecific and could represent positioning. Normal subglottic trachea. Normal bilateral lobes of the thyroid gland. There is a abnormal thickened appearance of the proximal esophagus with wall thickening. There is fluid in the right maxillary sinus. There is multilevel degenerative changes of the cervical spine. CT/Soft Tissue Neck WITH Contrast IMPRESSION: Enlargement of the tonsillar tissue adenoids and the epiglottis. Consider consider tonsillitis mild epiglottitis, potentially a viral or bacterial process or chronic inflammatory change possibly associated with reflux. No visualized abscess formation.. Incidental visualization of a thickened appearance of the esophagus which may represent esophagitis. Potentially severe reflux could have this appearance. Mild sinusitis. Electronically Signed: Marcelina Chong MD at 4:12 EST ,
[2021-11-02] MEDS: Racepinephrine HCl 0.5 ML VIAL.NEB. INHALATION (02:14)
[2021-11-02] MEDS: TRANEXAMIC ACID 1,000 MG/10 ML ML 1000 MG OPERA.SITE (02:30)
[2021-11-02] MEDS: dexAMETHasone 10 MG/ML Vial IV (02:40)
[2021-11-02] MEDS: Ceftriaxone 1 GM/50 ML BAG IV ×2 (02:40→21:38)
[2021-11-02 02:56] LABS: Procalcitonin 0.25 ng/mL (0.00-0.09)
--- NOTE | 2021-11-02 02:58 | CPS ---
10mL TXA via inhalation ordered per Dr. Cantrell.
--- NOTE | 2021-11-02 03:13 | ED.RN ---
patient not able to stand for orthos
--- NOTE | 2021-11-02 03:44 | ECHOCS_ITS ---
Reason For Study: syncope/near syncope Procedure This was a 2D Doppler, Color Flow transthoracic echocardiogram. The study was technically difficult. Due to morbid obesity. Contrast injection was performed. Exam performed portable in ICU/CCU. Left Ventricle Normal left ventricle. The estimated ejection fraction is 55-60 %. Right Ventricle Normal right ventricle. Normal systolic function. Atria Normal left atrium. Normal right atrium. Mitral Valve The mitral valve is structurally normal. No prolapse or stenosis seen. Trivial mitral valve insufficiency. Tricuspid Valve Normal tricuspid valve. Mild tricuspid valve insufficiency. Aortic Valve Normal aortic valve. Pulmonic Valve The pulmonic valve is not well visualized. Great Vessels Normal aortic root. Pericardium/Pleural No pericardial effusion. Medication Diluted definity 3.0ml given slow IV push to enhance endocardial definition. MMode/2D Measurements & Calculations LVIDd: 5.6 cm FS: 55.4 % Ao root diam: 3.3 cm LVIDs: 2.5 cm RVDd: 4.1 cm LAV(MOD-bp): 50.4 ml LVAd ap4: 35.3 cm2 LVAd ap2: 33.1 cm2 LAV(MOD-bp) Indexed: 19.0 ml/m2 LVLd ap4: 9.1 cm LVLd ap2: 9.4 cm LAV(MOD-sp2): 49.1 ml EDV(MOD-sp4): 112.3 ml EDV(MOD-sp2): 96.7 ml LAV(MOD-sp4): 48.3 ml EDV(sp4-el): 115.8 ml EDV(sp2-el): 99.1 ml LVAs ap4: 21.3 cm2 LVAs ap2: 15.0 cm2 LVLs ap4: 8.4 cm LVLs ap2: 7.8 cm ESV(MOD-sp4): 44.8 ml ESV(MOD-sp2): 24.6 ml ESV(sp4-el): 45.6 ml ESV(sp2-el): 24.5 ml EF(MOD-sp4): 60.1 % EF(MOD-sp2): 74.6 % EF(sp4-el): 60.6 % SV(MOD-sp4): 67.5 ml SV(MOD-sp2): 72.1 ml SV(sp4-el): 70.1 ml LA A4 area: 16.5 cm2 LA dimension(2D): 3.6 cm RA A4 area: 13.1 cm2 Time Measurements MV dec time: 0.23 sec Doppler Measurements & Calculations MV E max marcos: 68.1 cm/sec Lat Peak E' Marcos: 13.3 cm/sec Med Peak E' Marcos: 7.3 cm/sec MV A max marcos: 86.2 cm/sec E/E' lat: 5.1 E/E' med: 9.3 MV E/A: 0.79 Ao V2 max: 165.2 cm/sec LV V1 max: 129.2 cm/sec PA V2 max: 141.4 cm/sec Ao max P.9 mmHg LV V1 max P.7 mmHg ECHO/Echo Complete W/ Contrast Interpretation Summary The estimated ejection fraction is 55-60 %. Mild Infero- basal Hypokinesia No significant changes from prior Echo Ordering Physician: Shannon Chavez Referring Physician: Jaime Meyer Chi Performed By: Dawn Hyde, ANN, RVT
[2021-11-02 04:01] LABS: Bedside Glucose 114 mg/dL (70-110)
[2021-11-02] MEDS: Dextrose 5%/0.9% NaCl 1,000 ML 100 ML IV (04:02)
--- NOTE | 2021-11-02 04:09 | PCM.RX.CS ---
Consult Pharmacy has been consulted to manage selected antiobiotic: Vancomycin Type of Consult: New start Labs: Sodium 135 mmol/L (136-145) L 11/01/21 23:45 Potassium 4.4 mmol/L (3.5-5.1) 11/01/21 23:45 Chloride 101 mmol/L (98-107) 11/01/21 23:45 Carbon Dioxide 28.0 mmol/L (21.0-32.0) 11/01/21 23:45 Anion Gap 6 (5-15) 11/01/21 23:45 BUN 14 mg/dL (7-18) 11/01/21 23:45 Creatinine 0.90 mg/dL (0.70-1.30) 11/01/21 23:45 Est GFR (MDRD) Af Amer 108 mL/min (>60) 11/01/21 23:45 Est GFR (MDRD) Non-Af 89 mL/min (>60) 11/01/21 23:45 BUN/Creatinine Ratio 15.5 RATIO (10-20) 11/01/21 23:45 Glucose 73 mg/dL (74-106) L 11/01/21 23:45 Microbiology: Microbiology 11/02/21 03:10 Stool Stool Occult Blood (JAKE) - Final 11/02/21 00:55 Nasal Secretion SARS-CoV-2 Antigen (Rapid) - Final 11/01/21 23:30 Vomitus Gastric Occult Blood - Final Occult Blood Positive Weight used for dosin.3 kg Estimated Creatinine Clearance: 128 Goal Trough: 15-20 mcg/mL Pharmacy Plan for Drug Dosing: Pharmacy Service will continue to monitor and adjust dosing as required. Medications Vancomycin HCl 1,500 mg/ (Sodium Chloride) 530 mls @ 250 mls/hr IV Q8H GT Discontinued Medications Vancomycin HCl 2,000 mg/ (Sodium Chloride) 540 mls @ 250 mls/hr IV X1 ONE Stop: 11/02/21 03:55 Last Admin: 11/02/21 03:10 Dose: 250 mls/hr Documented by: Follow-Up Labs: Trough Vancomycin Labs to be done on [date and time ordered]: 11/03 @ 1233
[2021-11-02 04:46] LABS: Bedside Glucose 131 mg/dL (70-110)
[2021-11-02 05:10] LABS: Absolute Lymphocyte Count 0.46 X10^3/uL (0.83-4.51); Absolute Neutrophil Count 14.3 X10^3/uL (2.0-7.7); Basophil# 0.03 X10^3/uL; Basophil% 0.2 % (0-1); Differential Indicated SCAN CRITERIA MET; Hematocrit 47.8 % (40-54); Hemoglobin 15.4 g/dL (13.0-16.5); Lymphocyte # 0.46 X10^3/ul (0.83-4.51); Mean Corp Hgb Conc 32.2 g/dL (32-36); Mean Corpuscular Hgb 28.4 pg (27.0-32.0); Mean Corpuscular Volume 88.2 fL (80-94); Monocyte# 0.54 X10^3/uL; Monocyte% 3.5 % (0-10); NRBC Flagged by Analyzer 0 % (0-5); Neutrophil # 14.25 X10^3/uL (2.7-7.7); Neutrophil % 92.5 % (47-70); POSITIVE DIFFERENTIAL YES; Platelet Count 243 K/mm3 (150-450); RBC Distribution Width CV 16.2 % (11.6-14.6); RBC Distribution Width SD 52.1 fl (35.1-43.9); Red Blood Count 5.42 M/mm3 (4.6-6.2); White Blood Count 15.4 K/mm3 (4.4-11.0)
[2021-11-02 05:40] LABS: ALB/GLOB Ratio 0.6 RATIO (0.9-2.4); AST(SGOT) 17 U/L (15-37); Alanine Aminotransfer ALT/SGPT 20 U/L (16-61); Albumin, Serum 2.8 g/dL (3.2-5.0); Alkaline Phosphatase 80 U/L (45-117); Anion Gap 8 (5-15); BUN 14 mg/dL (7-18); BUN/Creat Ratio 17.5 RATIO (10-20); Calcium,Total 8.5 mg/dL (8.5-10.1); Chloride 104 mmol/L (98-107); Cholesterol 81 mg/dL (200); EST Glomerular Filtration Rate 103 mL/min (>60); Est Glom Filt Rate - Afr Amer 124 mL/min (>60); Estimated Creatinine Clearance 107.03 ml/min; Globulin 4.6 g/dL (2.2-4.2); Glucose 125 mg/dL (74-106); High Density Lipoprotein 56 mg/dL; Potassium 4.7 mmol/L (3.5-5.1); Protein, Total 7.4 g/dL (6.4-8.2); Sodium Level 135 mmol/L (136-145); Triglycerides 32 mg/dL; Troponin-I HS 9 pg/mL (3.0-78.0); Very Low Density Lipoprotein 6 mg/dL (5-40)
[2021-11-02 06:15] LABS: Anisocytosis 1+
--- NOTE | 2021-11-02 06:21 | EX.PCM.CONCC ---
Assessment & Plan Assessment/Plan (1) Syncope: (2) Acute epiglottitis: PLAN: RECOMMENDATIONS: 1. Await results of echocardiogram. 2. Continue dextrose containing fluids until diet can be advanced. 3. Continue PPI therapy. 4. Await results of video laryngoscopy by ENT. 5. Transition antibiotics to Augmentin. 6. Await evaluation by gastroenterology. 7. If the patient is cleared by ENT, he can be transferred out of the ICU. 8. Will sign off from a critical care perspective. Please call with any additional questions. IMPRESSIONS: 1. Syncope Unclear precipitating etiology, although hypoglycemia is certainly a possibility. It seems unlikely that this would have been related to acute blood loss anemia, given that the patient typically has a hemoglobin baseline around 10 to 11 g/dL. Echocardiogram is currently pending. 2. Questionable epiglottitis The patient did present with a sore throat and had radiographic findings concerning for potential epiglottitis. Accordingly, ENT was consulted and evaluated the patient at the bedside. There was no significant findings noted on bedside video laryngoscopy. There is no concern for airway compromise. The patient's antimicrobials can be transition to Augmentin from my perspective. 3. Questionable hematemesis Gastroenterology has been consulted with tentative plans for endoscopy. Continue current supportive measures including PPI therapy. 4. Hypoglycemia Hold baseline diabetic regimen. Continue D5 fluids for now. Advance diet when appropriate. 5. Morbid obesity/obstructive sleep apnea/tobacco dependency/chronic lower extremity wounds, hypertension, hyperlipidemia Complicates care, management, recovery and prognosis. Continue home medications. Wound care consultation is pending. This note was generated with Ide[employer] dictation software. It may contain incorrect words, spelling, and punctuation that were not noted in checking the note before signing. HPI Consult Data Date of Consult: 11/03/21 HPI Narrative Reason for Consultation: Epiglottitis, airway concern HPI Narrative: The patient is a 66-year-old male, with a history as outlined below, who presented to the emergency department via EMS on November 01 with a syncopal event in the setting of hypoglycemia. The patient's medical history is also significant for lower extremity diabetic wounds, diabetes mellitus, obstructive sleep apnea and tobacco dependency. According to him, he woke up on the floor at home after having experienced an episode of hematemesis. He also reported the presence of a sore throat, but and no difficulty in handling secretions. He denied any prior GI diagnoses. On presentation to the emergency department, the patient was documented to have a temperature of 96 ?F and was tachycardic and tachypneic. However, the patient was otherwise hemodynamically stable and maintaining appropriate oxygen saturations on room air. Initial laboratory evaluation revealed a white blood cell count of 18,000. Chemistry profile was notable for a sodium of 135. Creatinine was within normal limits. Glucose was low at 73. Liver function was within normal limits. Procalcitonin was noted to be 0.25. Coagulation profile was unremarkable. X-ray neck revealed epiglottitis with symmetric narrowing of the subglottic tracheal air column. Gastric occult blood was positive. Rapid coronavirus antigen testing was negative. Gastroenterology and ENT providers were consulted. The patient was placed on a PPI infusion along with antimicrobials. He was subsequently admitted to the medical intensive care unit. PENDING SALE TO [facility] Medical History BPH (benign prostatic hyperplasia) CPAP (continuous positive airway pressure) dependence Erectile dysfunction HTN (hypertension) Hyperlipidemia Hyperlipidemia Hypertension Hypokalemia Neuropathic pain Obesity Sleep apnea Smoker Tobacco abuse Type 2 diabetes mellitus Type 2 diabetes mellitus with diabetic polyneuropathy Home Medications calcium carbonate 500 mg PO DAILY 06/23/17 [History Last Taken 06/23/17] multivitamin 1 ea PO DAILY 06/23/17 [History Last Taken 06/23/17] atorvastatin 40 mg tablet 40 mg PO DAILY 10/18/19 [History Last Taken 08/31/20 22:39] bupropion HCl 150 mg 24 hr tablet, extended release 150 mg PO BID tab 10/18/19 [History Last Taken 09/01/20 08:27] tamsulosin 0.4 mg capsule 0.4 mg PO DAILY@1730 cap 10/18/19 [History Last Taken 08/31/20 17:28] gabapentin 300 mg capsule 600 mg PO TIDCM cap 04/24/20 [History Last Taken 09/01/20 13:15] aspirin 81 mg tablet,delayed release 81 mg PO DAILY tab 07/28/20 [History Last Taken Unknown] lancets 09/01/20 [History Last Taken Unknown] acetaminophen 1,000 mg PO Q6H PRN tab 10/03/20 [Rx Last Taken Unknown] tramadol 50 mg PO Q6H PRN PRN #28 tab 10/03/20 [Rx Last Taken Unknown] naproxen 500 mg tablet 500 mg PO BID PRN 10/31/20 [History Last Taken Unknown] blood-glucose transmitter #1 ea 11/30/20 [Rx Last Taken Unknown] dulaglutide 0.75 mg/0.5 mL subcutaneous pen injector 0.75 mg SUBCUT QWEEK #2 ml 07/26/21 [Rx Last Taken Unknown] blood sugar diagnostic #100 ea 08/06/21 [Rx Last Taken Unknown] lisinopril 40 mg tablet 40 mg PO DAILY #90 tab 08/06/21 [Rx Last Taken Unknown] flash glucose sensor #2 ea 08/23/21 [Rx Last Taken Unknown] Farxiga 10 mg tablet 10 mg PO DAILY #90 tab NS 09/03/21 [Rx Last Taken Unknown] Humulin R U-500 (Conc) Kwikpen 500 unit/mL (3 mL) subcutaneous 110 unit SUBCUT TID #27 ml NS 10/22/21 [Rx Last Taken Unknown] Allergy/AdvReac Type Severity Reaction Status Date / Time Sulfa (Sulfonamide Allergy Rash Verified 09/24/21 10:23 Antibiotics) Family History Father Myocardial infarction Heart disease Mother Kidney disease Diabetes Sister Asthma Breast cancer Hypertension Brother Alcoholism Melanoma Surgical History History of ankle surgery History of deviated nasal septum History of hernia repair History of oral surgery History of transmetatarsal amputation of left foot History of vasectomy Social History (Updated 11/02/21 @ 02:[address] Shannon Chavez MD) household members: none Smoking Status: Current every day smoker tobacco type: cigarettes alcohol intake: never substance use type: does not use what type of physical activity do you participate in: none ROS Constitutional Constitutional: Reports fatigue and weakness; Denies chills or fever(s) Eyes Eyes: Denies blurry vision or change in vision ENT HEENT: Reports sore throat; Denies dysphagia Cardiovascular Cardiovascular: Denies chest pain or dizziness Respiratory/Chest Respiratory/Chest: Denies cough or dyspnea Gastrointestinal Gastrointestinal: Reports dyspepsia and vomiting Genitourinary Genitourinary: Denies difficulty urinating or urinary frequency Musculoskeletal Musculoskeletal: Reports back pain Integumentary Integumentary: Reports wounds Neurologic Neurologic: Denies abnormal gait, confusion or focal weakness Psychiatric Psychiatric: Reports anxiety and depression Endocrine Endocrinology: Reports fatigue Hematologic/Lymphatic Hematologic/Lymphatic: Denies easy bleeding or easy bruising Physical Exam Const alert and no apparent distress Constitutional Narrative: A bit unkempt in appearance. + Vocal hoarseness General Appearance: cooperative Nutritional Appearance: morbidly obese HEENT normocephalic and head/scalp atraumatic Eyes PERRL and EOMs intact bilaterally Neck supple General: trachea midline Chest inspection of chest normal Resp Auscultation: diminished lung sounds; Negative for rales, rhonchi or wheezes Cardio regular rate and regular rhythm GI normal to inspection, nondistended, normoactive bowel sounds Extremity Extremity Narrative: Partial left foot amputation General Extremity: Negative for clubbing Skin Wound Narrative: Lower extremity diabetic wounds, present on admission Neuro CN's II-XII intact bilaterally, moves all extremities and no focal motor deficits Psych cooperative and affect normal Lab / Micro Data Result Diagrams: 11/02/21 04:55 11/02/21 04:55 Labs: Laboratory Results - last 24 hr 11/01/21 23:45: WBC 18.4 H, RBC 5.95, Hgb 16.5, Hct 49.9, MCV 83.9, MCH 27.7, MCHC 33.1, RDW Std Deviation 48.5 H, RDW Coeff of Fatuma 16.0 H, Plt Count 274, MPV 10.1, Immature Gran % (Auto) 1.900 H, Neut % (Auto) 87.1 H, Lymph % (Auto) 4.5 L, [place] % (Auto) 6.2, Eos % (Auto) 0.0, Baso % (Auto) 0.3, Absolute Neuts (auto) 16.1 H, Absolute Lymphs (auto) 0.82 L, Nucleated RBC % 0 11/01/21 23:45: PT 14.3, INR 1.2, APTT 35.3 11/01/21 23:45: Sodium 135 L, Potassium 4.4, Chloride 101, Carbon Dioxide 28.0, Anion Gap 6, BUN 14, Creatinine 0.90, Estim Creat Clear Calc 95.14, Est GFR (MDRD) Af Amer 108, Est GFR (MDRD) Non-Af 89, BUN/Creatinine Ratio 15.5, Glucose 73 L, Calcium 8.9, Total Bilirubin 0.40, Direct Bilirubin 0.13, AST 17, ALT 21, Alkaline Phosphatase 86, Troponin I High Sens 7, Total Protein 8.0, Albumin 3.0 L, Globulin 5.0 H, Lipase < 10 L 11/01/21 23:45: Lactic Acid 1.6 11/01/21 23:45: Blood Type A POSITIVE, Antibody Screen NEGATIVE 11/01/21 23:54: Procalcitonin 0.25 H 11/02/21 03:57: POC Glucose 114 H 11/02/21 04:39: POC Glucose 131 H 11/02/21 04:55: WBC 15.4 H, RBC 5.42, Hgb 15.4, Hct 47.8, MCV 88.2 D, MCH 28.4, MCHC 32.2, RDW Std Deviation 52.1 H, RDW Coeff of Fatuma 16.2 H, Plt Count 243, MPV 10.0, Immature Gran % (Auto) 0.800, Neut % (Auto) 92.5 H, Lymph % (Auto) 3.0 L, [place] % (Auto) 3.5, Eos % (Auto) 0.0, Baso % (Auto) 0.2, Absolute Neuts (auto) 14.3 H, Absolute Lymphs (auto) 0.46 L, Nucleated RBC % 0, Anisocytosis 1+ 11/02/21 04:55: Sodium 135 L, Potassium 4.7, Chloride 104, Carbon Dioxide 23.0, Anion Gap 8, BUN 14, Creatinine 0.80, Estim Creat Clear Calc 107.03, Est GFR (MDRD) Af Amer 124, Est GFR (MDRD) Non-Af 103, BUN/Creatinine Ratio 17.5, Glucose 125 H, Calcium 8.5, Total Bilirubin 0.40, AST 17, ALT 20, Alkaline Phosphatase 80, Troponin I High Sens 9, Total Protein 7.4, Albumin 2.8 L, Globulin 4.6 H, Albumin/Globulin Ratio 0.6 L, Triglycerides 32, Cholesterol 81, LDL Cholesterol 19, VLDL Cholesterol 6, HDL Cholesterol 56 Micro: Microbiology 11/02/21 03:10 Stool Stool Occult Blood (JAKE) - Final 11/02/21 00:55 Nasal Secretion SARS-CoV-2 Antigen (Rapid) - Final 11/01/21 23:30 Vomitus Gastric Occult Blood - Final Occult Blood Positive Radiology Impression Acute Abdomen Series 11/01/21 00:00 IMPRESSION: 1. Mild pulmonary vascular congestion. 2. There is no evidence for pneumoperitoneum. 3. Nonspecific bowel gas pattern. Electronically Signed: Mariela Alonso MD at 1:18 EST , Soft Tissue Neck X-Ray 11/01/21 22:42 IMPRESSION: 1. Questionable croup. 2. Mild prominence of the epiglottis. Electronically Signed: Mariela Alonso MD at 1:15 EST , Soft Tissue Neck CT 11/02/21 01:45 IMPRESSION: Enlargement of the tonsillar tissue adenoids and the epiglottis. Consider consider tonsillitis mild epiglottitis, potentially a viral or bacterial process or chronic inflammatory change possibly associated with reflux. No visualized abscess formation.. Incidental visualization of a thickened appearance of the esophagus which may represent esophagitis. Potentially severe reflux could have this appearance. Mild sinusitis. Electronically Signed: Marcelina Chong MD at 4:12 EST , Charges/Coding Visit Charges Inpatient E&M: 74248 Init Hosp L3
--- NOTE | 2021-11-02 07:14 | PN.HOSP_ITS ---
Subjective Subjective Patient is a 66-year-old gentleman admitted with coffee-ground emesis and hypoglycemia. Patient was found to have radiographic features consistent with epiglottitis. Started on antibiotics admitted to the intensive care unit Objective Data Objective Data Vital Signs: Vital Signs Temp Pulse Resp BP Pulse Ox 98.6 F 98 22 H 142/80 H 92 11/02/21 03:38 11/02/21 07:00 11/02/21 07:00 11/02/21 07:00 11/02/21 07:00 Oxygen Flow Rate (L/min) 2 Oxygen Delivery Method Room Air Weight: 153.3 kg Body Mass Index (BMI) 43.8 Intake & Output: Intake and Output for Last 24 Hours 10/31/21 11/01/21 11/02/21 23:59 23:59 23:59 Intake Total 1625 / 1625 Output Total 100 / 100 Balance 1525 / 1525 Lab / Micro Data Result Diagrams: 11/02/21 04:55 11/02/21 04:55 Labs: Laboratory Results - last 24 hr 11/01/21 23:45: WBC 18.4 H, RBC 5.95, Hgb 16.5, Hct 49.9, MCV 83.9, MCH 27.7, MCHC 33.1, RDW Std Deviation 48.5 H, RDW Coeff of Fatuma 16.0 H, Plt Count 274, MPV 10.1, Immature Gran % (Auto) 1.900 H, Neut % (Auto) 87.1 H, Lymph % (Auto) 4.5 L , [place] % (Auto) 6.2, Eos % (Auto) 0.0, Baso % (Auto) 0.3, Absolute Neuts (auto) 16.1 H, Absolute Lymphs (auto) 0.82 L, Nucleated RBC % 0 11/01/21 23:45: PT 14.3, INR 1.2, APTT 35.3 11/01/21 23:45: Sodium 135 L, Potassium 4.4, Chloride 101, Carbon Dioxide 28.0, Anion Gap 6, BUN 14, Creatinine 0.90, Estim Creat Clear Calc 95.14, Est GFR (MDRD) Af Amer 108, Est GFR (MDRD) Non-Af 89, BUN/Creatinine Ratio 15.5, Glucose 73 L, Calcium 8.9, Total Bilirubin 0.40, Direct Bilirubin 0.13, AST 17, ALT 21, Alkaline Phosphatase 86, Troponin I High Sens 7, Total Protein 8.0, Albumin 3.0 L, Globulin 5.0 H, Lipase < 10 L 11/01/21 23:45: Lactic Acid 1.6 11/01/21 23:45: Blood Type A POSITIVE, Antibody Screen NEGATIVE 11/01/21 23:54: Procalcitonin 0.25 H 11/02/21 03:57: POC Glucose 114 H 11/02/21 04:39: POC Glucose 131 H 11/02/21 04:55: WBC 15.4 H, RBC 5.42, Hgb 15.4, Hct 47.8, MCV 88.2 D, MCH 28.4, MCHC 32.2, RDW Std Deviation 52.1 H, RDW Coeff of Fatuma 16.2 H, Plt Count 243, MPV 10.0, Immature Gran % (Auto) 0.800, Neut % (Auto) 92.5 H, Lymph % (Auto) 3.0 L, [place] % (Auto) 3.5, Eos % (Auto) 0.0, Baso % (Auto) 0.2, Absolute Neuts (auto) 14.3 H, Absolute Lymphs (auto) 0.46 L, Nucleated RBC % 0, Anisocytosis 1+ 11/02/21 04:55: Sodium 135 L, Potassium 4.7, Chloride 104, Carbon Dioxide 23.0, Anion Gap 8, BUN 14, Creatinine 0.80, Estim Creat Clear Calc 107.03, Est GFR (MDRD) Af Amer 124, Est GFR (MDRD) Non-Af 103, BUN/Creatinine Ratio 17.5, Glucose 125 H, Calcium 8.5, Total Bilirubin 0.40, AST 17, ALT 20, Alkaline Phosphatase 80, Troponin I High Sens 9, Total Protein 7.4, Albumin 2.8 L, Globulin 4.6 H, Albumin/Globulin Ratio 0.6 L, Triglycerides 32, Cholesterol 81, LDL Cholesterol 19, VLDL Cholesterol 6, HDL Cholesterol 56 Micro: Microbiology 11/02/21 03:10 Stool Stool Occult Blood (JAKE) - Final 11/02/21 00:55 Nasal Secretion SARS-CoV-2 Antigen (Rapid) - Final 11/01/21 23:30 Vomitus Gastric Occult Blood - Final Occult Blood Positive Radiography Diagnostic Testing: Radiology Impression Acute Abdomen Series 11/01/21 00:00 IMPRESSION: 1. Mild pulmonary vascular congestion. 2. There is no evidence for pneumoperitoneum. 3. Nonspecific bowel gas pattern. Electronically Signed: Mariela Alonso MD at 1:18 EST , Soft Tissue Neck X-Ray 11/01/21 22:42 IMPRESSION: 1. Questionable croup. 2. Mild prominence of the epiglottis. Electronically Signed: Mariela Alonso MD at 1:15 EST , Soft Tissue Neck CT 11/02/21 01:45 IMPRESSION: Enlargement of the tonsillar tissue adenoids and the epiglottis. Consider consider tonsillitis mild epiglottitis, potentially a viral or bacterial process or chronic inflammatory change possibly associated with reflux. No visualized abscess formation.. Incidental visualization of a thickened appearance of the esophagus which may represent esophagitis. Potentially severe reflux could have this appearance. Mild sinusitis. Electronically Signed: Marcelina Chong MD at 4:12 EST , Physical Exam Narrative GENERAL: cooperative HEENT: Uvula edematous and erythematous; EYES; Anicteric, Normal Conjunctiva NECK; supple, normal thyroid, RESPIRATORY: Diminished to auscultation CARDIOVASCULAR: Regular S1 S2, GI: soft, normoactive bowel sounds, : No Renal angle tenderness; EXTREMITIES: No edema, no clubbing, MUSCULOSKELETAL: no muscle wasting NEURO: Awake; no lateralizing signs. SKIN: No Rash PSYCH; Flat affect Assessment & Plan Assessment/Plan (1) Epiglottitis: (2) GI bleed: QUALIFIERS: GI bleed type/associated pathology: unspecified gastrointestinal hemorrhage type Qualified Code(s): K92.2 - Gastrointestinal hemorrhage, unspecified (3) Hypoglycemia: (4) Syncope: QUALIFIERS: Syncope type: unspecified Qualified Code(s): R55 - Syncope and collapse PLAN: Patient is a 66-year-old gentleman admitted with coffee-ground emesis and hypoglycemia. Patient was found to have radiographic features consistent with epiglottitis. Started on antibiotics admitted to the intensive care unit 1. Acute epiglottitis ?Admitted to the intensive care unit with concerns for airway compromise. Patient was started on broad-spectrum antibiotic therapy with ceftriaxone and vancomycin. Consultation placed to both pulmonary medicine as well as ENT. Patient had significant elevated WBC count on admission. Progress being samantha tored by trending daily CBC 2. Upper GI bleed ?Patient did experience coffee-ground emesis. Placed on Protonix drip consultation placed to GI 3. Diabetes mellitus type 2 with hypoglycemia ?Patient oral agent held on admission resuscitated with D5 with every 6 Accu- Cheks ordered 4. Hypertension - Blood pressure controlled, home medications continued with dose adjustment as needed 5. Dyslipidemia -Patient is on statin therapy, continued at home dose 6. BPH ?Patient is on tamsulosin 7. Class III obesity with BMI of 43.4 -Weight loss advised 8. Obstructive sleep apnea -PAP therapy at at bedtime 9. GERD ?On PPI 10. Chronic diabetic foot wound Consult placed wound care nurse 11. Tobacco dependence - Counseled on cessation, offered nicotine patch for tobacco cravings 12. Depression with anxiety ?Patient is on Wellbutrin did continue 13. DVT prophylaxis ?SCDs only given patient's presentation?coffee-ground emesis Charges/Coding Visit Charges Inpatient E&M: 49217 Subs Hosp L3
[2021-11-02 07:20] LABS: Bedside Glucose 65 mg/dL (70-110)
[2021-11-02 07:30] LABS: Bedside Glucose 168 mg/dL (70-110)
[2021-11-02 09:01] LABS: Troponin-I HS 8 pg/mL (3.0-78.0)
[2021-11-02] MEDS: Gabapentin 600 MG Tablet PO (09:28)
[2021-11-02] MEDS: buPROPion (XL) 150 MG TABLET.XL PO ×2 (09:28→21:38)
[2021-11-02] MEDS: Lisinopril 40 MG Tablet PO (09:28)
[2021-11-02] MEDS: 0.9% Saline Lock 10 ML Syringe IV ×2 (10:08→16:38)
--- NOTE | 2021-11-02 11:10 | WOUNDNOTE ---
wound photo: right haider
--- NOTE | 2021-11-02 11:10 | WOUNDNOTE ---
wound photo: left foot
[2021-11-02 12:10] LABS: Bedside Glucose 264 mg/dL (70-110)
[2021-11-02 12:11] LABS: M R Staph aureus DNA By PCR POSITIVE (Negative); Probe Check PASS; Staph aureus DNA By PCR POSITIVE (Negative)
--- NOTE | 2021-11-02 12:20 | CON.PCM_ITS ---
Assessment & Plan Assessment/Plan (1) Pharyngitis: PLAN: 66 year old male with odynophagia admitted for question of upper airway edema -CT with no obvious thickening of epiglottis. otherwise normal with mild supraglottis / pharyngitis -flexible laryngoscopy with some postcricoid edema. airway wide open, cords mobile. epiglottis normal. tongue base normal. no trismus. -would treat as pharyngitis. may advance diet. treat with antibiotics. may f/u at [facility] in 2 wks [phone]. HPI Consult Data Date of Consult: 11/02/21 HPI Narrative HPI Narrative: GEN SIM, is a 66 M who presented to the ED last night with pharyngitis, hypoglycemia and syncope. CT neck was read as tonsillits, pharyngitis with question for thickening of the epiglottis. no dyspnea, no stridor. received decadron, IV antibiotics. feels better today. FORMERLY [facility], [facility] Medical History BPH (benign prostatic hyperplasia) CPAP (continuous positive airway pressure) dependence Erectile dysfunction HTN (hypertension) Hyperlipidemia Hyperlipidemia Hypertension Hypokalemia Neuropathic pain Obesity Sleep apnea Smoker Tobacco abuse Type 2 diabetes mellitus Type 2 diabetes mellitus with diabetic polyneuropathy Home Medications calcium carbonate 500 mg PO DAILY 06/23/17 [History Last Taken 06/23/17] multivitamin 1 ea PO DAILY 06/23/17 [History Last Taken 06/23/17] atorvastatin 40 mg tablet 40 mg PO DAILY 10/18/19 [History Last Taken 08/31/20 22:39] bupropion HCl 150 mg 24 hr tablet, extended release 150 mg PO BID tab 10/18/19 [History Last Taken 09/01/20 08:27] tamsulosin 0.4 mg capsule 0.4 mg PO DAILY@1730 cap 10/18/19 [History Last Taken 08/31/20 17:28] gabapentin 300 mg capsule 600 mg PO TIDCM cap 04/24/20 [History Last Taken 09/01/20 13:15] aspirin 81 mg tablet,delayed release 81 mg PO DAILY tab 07/28/20 [History Last Taken Unknown] lancets 09/01/20 [History Last Taken Unknown] acetaminophen 1,000 mg PO Q6H PRN tab 10/03/20 [Rx Last Taken Unknown] tramadol 50 mg PO Q6H PRN PRN #28 tab 10/03/20 [Rx Last Taken Unknown] naproxen 500 mg tablet 500 mg PO BID PRN 10/31/20 [History Last Taken Unknown] blood-glucose transmitter #1 ea 11/30/20 [Rx Last Taken Unknown] dulaglutide 0.75 mg/0.5 mL subcutaneous pen injector 0.75 mg SUBCUT QWEEK #2 ml 07/26/21 [Rx Last Taken Unknown] blood sugar diagnostic #100 ea 08/06/21 [Rx Last Taken Unknown] lisinopril 40 mg tablet 40 mg PO DAILY #90 tab 08/06/21 [Rx Last Taken Unknown] flash glucose sensor #2 ea 08/23/21 [Rx Last Taken Unknown] Farxiga 10 mg tablet 10 mg PO DAILY #90 tab NS 09/03/21 [Rx Last Taken Unknown] Humulin R U-500 (Conc) Kwikpen 500 unit/mL (3 mL) subcutaneous 110 unit SUBCUT TID #27 ml NS 10/22/21 [Rx Last Taken Unknown] Allergy/AdvReac Type Severity Reaction Status Date / Time Sulfa (Sulfonamide Allergy Rash Verified 09/24/21 10:23 Antibiotics) Family History Father Myocardial infarction Heart disease Mother Kidney disease Diabetes Sister Asthma Breast cancer Hypertension Brother Alcoholism Melanoma Surgical History History of ankle surgery History of deviated nasal septum History of hernia repair History of oral surgery History of transmetatarsal amputation of left foot History of vasectomy Social History (Updated 11/02/21 @ 02:[address] Shannon Chavez MD) household members: none Smoking Status: Current every day smoker tobacco type: cigarettes alcohol intake: never substance use type: does not use what type of physical activity do you participate in: none ROS Constitutional Constitutional: Reports systems reviewed and no addt'l complaints, except as documented Eyes Eyes: Reports systems reviewed and no addt'l complaints, except as documented ENT HEENT: Reports systems reviewed and no addt'l complaints, except as documented Cardiovascular Cardiovascular: Reports systems reviewed and no addt'l complaints, except as documented Respiratory/Chest Respiratory/Chest: Reports systems reviewed and no addt'l complaints, except as documented Physical Exam Const alert General Appearance: cooperative Exam Limitations: no limitations HEENT HEENT Narrative: normal oropharynx. no ulcerations or mucosal irregularities. Face and Sinus: normal facial exam Nose: external nose normal Mouth: oral and palatal mucosa normal Throat: posterior oropharynx normal Lab / Micro Data Result Diagrams: 11/02/21 04:55 11/02/21 04:55 Labs: Laboratory Results - last 24 hr 11/01/21 22:29: POC Glucose 65 L 11/01/21 23:45: WBC 18.4 H, RBC 5.95, Hgb 16.5, Hct 49.9, MCV 83.9, MCH 27.7, MCHC 33.1, RDW Std Deviation 48.5 H, RDW Coeff of Fatuma 16.0 H, Plt Count 274, MPV 10.1, Immature Gran % (Auto) 1.900 H, Neut % (Auto) 87.1 H, Lymph % (Auto) 4.5 L , Vernon % (Auto) 6.2, Eos % (Auto) 0.0, Baso % (Auto) 0.3, Absolute Neuts (auto) 16.1 H, Absolute Lymphs (auto) 0.82 L, Nucleated RBC % 0 11/01/21 23:45: PT 14.3, INR 1.2, APTT 35.3 11/01/21 23:45: Sodium 135 L, Potassium 4.4, Chloride 101, Carbon Dioxide 28.0, Anion Gap 6, BUN 14, Creatinine 0.90, Estim Creat Clear Calc 95.14, Est GFR (MDRD) Af Amer 108, Est GFR (MDRD) Non-Af 89, BUN/Creatinine Ratio 15.5, Glucose 73 L, Calcium 8.9, Total Bilirubin 0.40, Direct Bilirubin 0.13, AST 17, ALT 21, Alkaline Phosphatase 86, Troponin I High Sens 7, Total Protein 8.0, Albumin 3.0 L, Globulin 5.0 H, Lipase < 10 L 11/01/21 23:45: Lactic Acid 1.6 11/01/21 23:45: Blood Type A POSITIVE, Antibody Screen NEGATIVE 11/01/21 23:54: Procalcitonin 0.25 H 11/02/21 03:57: POC Glucose 114 H 11/02/21 04:39: POC Glucose 131 H 11/02/21 04:55: WBC 15.4 H, RBC 5.42, Hgb 15.4, Hct 47.8, MCV 88.2 D, MCH 28.4, MCHC 32.2, RDW Std Deviation 52.1 H, RDW Coeff of Fatuma 16.2 H, Plt Count 243, MPV 10.0, Immature Gran % (Auto) 0.800, Neut % (Auto) 92.5 H, Lymph % (Auto) 3.0 L, Vernon % (Auto) 3.5, Eos % (Auto) 0.0, Baso % (Auto) 0.2, Absolute Neuts (auto) 14.3 H, Absolute Lymphs (auto) 0.46 L, Nucleated RBC % 0, Anisocytosis 1+ 11/02/21 04:55: Sodium 135 L, Potassium 4.7, Chloride 104, Carbon Dioxide 23.0, Anion Gap 8, BUN 14, Creatinine 0.80, Estim Creat Clear Calc 107.03, Est GFR (MDRD) Af Amer 124, Est GFR (MDRD) Non-Af 103, BUN/Creatinine Ratio 17.5, Glucose 125 H, Calcium 8.5, Total Bilirubin 0.40, AST 17, ALT 20, Alkaline Phosphatase 80, Troponin I High Sens 9, Total Protein 7.4, Albumin 2.8 L, Globulin 4.6 H, Albumin/Globulin Ratio 0.6 L, Triglycerides 32, Cholesterol 81, LDL Cholesterol 19, VLDL Cholesterol 6, HDL Cholesterol 56 11/02/21 06:49: POC Glucose 168 H 11/02/21 08:25: Troponin I High Sens 8 11/02/21 10:35: S.aureus Protein A PCR POSITIVE H, MRSA (PCR) POSITIVE H 11/02/21 12:07: POC Glucose 264 H Micro: Microbiology 11/02/21 07:35 Urine, Random Legionella Antigen - Final 11/02/21 07:35 Urine, Random Streptococcus pneumoniae Antigen (M - Final 11/02/21 04:50 Mucosa - Nasopharyngeal Respiratory Panel (PCR) - Final 11/02/21 03:10 Stool Stool Occult Blood (JAKE) - Final 11/02/21 00:55 Nasal Secretion SARS-CoV-2 Antigen (Rapid) - Final 11/01/21 23:30 Vomitus Gastric Occult Blood - Final Occult Blood Positive Radiology Impression Acute Abdomen Series 11/01/21 00:00 IMPRESSION: 1. Mild pulmonary vascular congestion. 2. There is no evidence for pneumoperitoneum. 3. Nonspecific bowel gas pattern. Electronically Signed: Mariela Alonso MD at 1:18 EST , Soft Tissue Neck X-Ray 11/01/21 22:42 IMPRESSION: 1. Questionable croup. 2. Mild prominence of the epiglottis. Electronically Signed: Mariela Alonso MD at 1:15 EST , Soft Tissue Neck CT 11/02/21 01:45 IMPRESSION: Enlargement of the tonsillar tissue adenoids and the epiglottis. Consider consider tonsillitis mild epiglottitis, potentially a viral or bacterial process or chronic inflammatory change possibly associated with reflux. No visualized abscess formation.. Incidental visualization of a thickened appearance of the esophagus which may represent esophagitis. Potentially severe reflux could have this appearance. Mild sinusitis. Electronically Signed: Marcelina Chong MD at 4:12 EST ,
--- NOTE | 2021-11-02 12:26 | PCM.OPRPT ---
Problems Associated Problem List Diagnoses (1) Acute epiglottitis: Report of Operation Date of Procedure: 11/02/21 Pre-Operative Diagnosis: supraglottitis Post-Operative Diagnosis: supraglottitis Surgery/Procedure Performed:: flexible fiberoptic laryngoscopy Surgeon: Leonardo Ba Type of Anesthesia: Local Description of Procedure: the flexible laryngoscope was inserted into the left nasal cavity. nasopharynx normal. the larynx was easily visualized. epiglottis normal. tongue base normal. cords mobile and crisp - no cord edema. some mild postcricoid edema. visualized subglottis normal. no complications.
--- NOTE | 2021-11-02 12:58 | CON.PCM.GI_ITS ---
HPI Consult Data Date of Consult: 11/02/21 HPI Narrative HPI Narrative: 66-year-old male with past medical history of diabetes. He states that this evening he was sitting in his living room when the next and he remembers is waking up on his floor with bouts of vomiting. He states that the vomit was dark in color concerning for blood. He denies any history of bleeding disorder or blood thinner use. He denies any excessive alcohol use or nonsteroidal anti-inflammatory use. Patient does admit to a large amount of caffeine daily but denies any previous history of gastric ulcer. Patient also states he was just recently in the hospital about 2 weeks ago secondary to the passing out event. At this time as he is persistently nauseous and having dark bouts of emesis concerning for bloody contact EMS and was brought in for evaluation. His white count is elevated 18.4 but his hemoglobin and hematocrit as well as platelet count are normal. A cardiac work-up was added based on his report of syncope and his EKG is technically normal sinus rhythm and troponin normal. X- rays of his neck and abdomen were obtained. The abdominal x-ray revealed no acute findings or perforation and x-ray of the soft tissue neck question possible epiglottitis. He was seen by ENT and underwent and evaluation I was determined to have supraglottic inflammation is being treated medically. I was called in to evaluate him due to his hematemesis. [facility] Medical History BPH (benign prostatic hyperplasia) CPAP (continuous positive airway pressure) dependence Erectile dysfunction HTN (hypertension) Hyperlipidemia Hyperlipidemia Hypertension Hypokalemia Neuropathic pain Obesity Sleep apnea Smoker Tobacco abuse Type 2 diabetes mellitus Type 2 diabetes mellitus with diabetic polyneuropathy Home Medications calcium carbonate 500 mg PO DAILY 06/23/17 [History Last Taken 06/23/17] multivitamin 1 ea PO DAILY 06/23/17 [History Last Taken 06/23/17] atorvastatin 40 mg tablet 40 mg PO DAILY 10/18/19 [History Last Taken 08/31/20 22:39] bupropion HCl 150 mg 24 hr tablet, extended release 150 mg PO BID tab 10/18/19 [History Last Taken 09/01/20 08:27] tamsulosin 0.4 mg capsule 0.4 mg PO DAILY@1730 cap 10/18/19 [History Last Taken 08/31/20 17:28] gabapentin 300 mg capsule 600 mg PO TIDCM cap 04/24/20 [History Last Taken 09/01/20 13:15] aspirin 81 mg tablet,delayed release 81 mg PO DAILY tab 07/28/20 [History Last Taken Unknown] lancets 09/01/20 [History Last Taken Unknown] acetaminophen 1,000 mg PO Q6H PRN tab 10/03/20 [Rx Last Taken Unknown] tramadol 50 mg PO Q6H PRN PRN #28 tab 10/03/20 [Rx Last Taken Unknown] naproxen 500 mg tablet 500 mg PO BID PRN 10/31/20 [History Last Taken Unknown] blood-glucose transmitter #1 ea 11/30/20 [Rx Last Taken Unknown] dulaglutide 0.75 mg/0.5 mL subcutaneous pen injector 0.75 mg SUBCUT QWEEK #2 ml 07/26/21 [Rx Last Taken Unknown] blood sugar diagnostic #100 ea 08/06/21 [Rx Last Taken Unknown] lisinopril 40 mg tablet 40 mg PO DAILY #90 tab 08/06/21 [Rx Last Taken Unknown] flash glucose sensor #2 ea 08/23/21 [Rx Last Taken Unknown] Farxiga 10 mg tablet 10 mg PO DAILY #90 tab NS 09/03/21 [Rx Last Taken Unknown] Humulin R U-500 (Conc) Kwikpen 500 unit/mL (3 mL) subcutaneous 110 unit SUBCUT TID #27 ml NS 10/22/21 [Rx Last Taken Unknown] Allergy/AdvReac Type Severity Reaction Status Date / Time Sulfa (Sulfonamide Allergy Rash Verified 09/24/21 10:23 Antibiotics) Family History Father Myocardial infarction Heart disease Mother Kidney disease Diabetes Sister Asthma Breast cancer Hypertension Brother Alcoholism Melanoma Surgical History History of ankle surgery History of deviated nasal septum History of hernia repair History of oral surgery History of transmetatarsal amputation of left foot History of vasectomy Social History (Updated 11/02/21 @ 02:[address] Shannon Chavez MD) household members: none Smoking Status: Current every day smoker tobacco type: cigarettes alcohol intake: never substance use type: does not use what type of physical activity do you participate in: none ROS Gastrointestinal Gastrointestinal: Reports hematemesis Physical Exam Const alert General Appearance: cooperative Orientation / Consciousness: oriented to person HEENT hearing grossly normal bilaterally Head and Scalp: normal to inspection Face and Sinus: face symmetric Nose: external nose normal Mouth: oral and palatal mucosa normal Eyes conjunctivae normal General Eye: normal appearance of both eyes Neck full ROM General: normal visual inspection Lymph Lymphatic: no lymphadenopathy noted Chest inspection of chest normal and palpation of chest normal Chest: symmetrical chest wall rise Resp normal respiratory effort Effort and Inspection: able to speak in complete sentences Cardio regular rate GI non-distended Percussion: normal to percussion Rectal Exam: deferred Neuro Speech: speech normal Gait (Neuro): normal gait Lab / Micro Data Result Diagrams: 11/02/21 04:55 11/02/21 04:55 Labs: Laboratory Results - last 24 hr 11/01/21 22:29: POC Glucose 65 L 11/01/21 23:45: WBC 18.4 H, RBC 5.95, Hgb 16.5, Hct 49.9, MCV 83.9, MCH 27.7, MCHC 33.1, RDW Std Deviation 48.5 H, RDW Coeff of Fatuma 16.0 H, Plt Count 274, MPV 10.1, Immature Gran % (Auto) 1.900 H, Neut % (Auto) 87.1 H, Lymph % (Auto) 4.5 L , Gentry % (Auto) 6.2, Eos % (Auto) 0.0, Baso % (Auto) 0.3, Absolute Neuts (auto) 16.1 H, Absolute Lymphs (auto) 0.82 L, Nucleated RBC % 0 11/01/21 23:45: PT 14.3, INR 1.2, APTT 35.3 11/01/21 23:45: Sodium 135 L, Potassium 4.4, Chloride 101, Carbon Dioxide 28.0, Anion Gap 6, BUN 14, Creatinine 0.90, Estim Creat Clear Calc 95.14, Est GFR (MDRD) Af Amer 108, Est GFR (MDRD) Non-Af 89, BUN/Creatinine Ratio 15.5, Glucose 73 L, Calcium 8.9, Total Bilirubin 0.40, Direct Bilirubin 0.13, AST 17, ALT 21, Alkaline Phosphatase 86, Troponin I High Sens 7, Total Protein 8.0, Albumin 3.0 L, Globulin 5.0 H, Lipase < 10 L 11/01/21 23:45: Lactic Acid 1.6 11/01/21 23:45: Blood Type A POSITIVE, Antibody Screen NEGATIVE 11/01/21 23:54: Procalcitonin 0.25 H 11/02/21 03:57: POC Glucose 114 H 11/02/21 04:39: POC Glucose 131 H 11/02/21 04:55: WBC 15.4 H, RBC 5.42, Hgb 15.4, Hct 47.8, MCV 88.2 D, MCH 28.4, MCHC 32.2, RDW Std Deviation 52.1 H, RDW Coeff of Fatuma 16.2 H, Plt Count 243, MPV 10.0, Immature Gran % (Auto) 0.800, Neut % (Auto) 92.5 H, Lymph % (Auto) 3.0 L, Gentry % (Auto) 3.5, Eos % (Auto) 0.0, Baso % (Auto) 0.2, Absolute Neuts (auto) 14.3 H, Absolute Lymphs (auto) 0.46 L, Nucleated RBC % 0, Anisocytosis 1+ 11/02/21 04:55: Sodium 135 L, Potassium 4.7, Chloride 104, Carbon Dioxide 23.0, Anion Gap 8, BUN 14, Creatinine 0.80, Estim Creat Clear Calc 107.03, Est GFR (MDRD) Af Amer 124, Est GFR (MDRD) Non-Af 103, BUN/Creatinine Ratio 17.5, Glucose 125 H, Calcium 8.5, Total Bilirubin 0.40, AST 17, ALT 20, Alkaline Phosphatase 80, Troponin I High Sens 9, Total Protein 7.4, Albumin 2.8 L, Globulin 4.6 H, Albumin/Globulin Ratio 0.6 L, Triglycerides 32, Cholesterol 81, LDL Cholesterol 19, VLDL Cholesterol 6, HDL Cholesterol 56 11/02/21 06:49: POC Glucose 168 H 11/02/21 08:25: Troponin I High Sens 8 11/02/21 10:35: S.aureus Protein A PCR POSITIVE H, MRSA (PCR) POSITIVE H 11/02/21 12:07: POC Glucose 264 H Micro: Microbiology 11/02/21 07:35 Urine, Random Legionella Antigen - Final 11/02/21 07:35 Urine, Random Streptococcus pneumoniae Antigen (M - Final 11/02/21 04:50 Mucosa - Nasopharyngeal Respiratory Panel (PCR) - Final 11/02/21 03:10 Stool Stool Occult Blood (JAKE) - Final 11/02/21 00:55 Nasal Secretion SARS-CoV-2 Antigen (Rapid) - Final 11/01/21 23:30 Vomitus Gastric Occult Blood - Final Occult Blood Positive Radiology Impression Acute Abdomen Series 11/01/21 00:00 IMPRESSION: 1. Mild pulmonary vascular congestion. 2. There is no evidence for pneumoperitoneum. 3. Nonspecific bowel gas pattern. Electronically Signed: Mariela Alonso MD at 1:18 EST , Soft Tissue Neck X-Ray 11/01/21 22:42 IMPRESSION: 1. Questionable croup. 2. Mild prominence of the epiglottis. Electronically Signed: Mariela Alonso MD at 1:15 EST , Soft Tissue Neck CT 11/02/21 01:45 IMPRESSION: Enlargement of the tonsillar tissue adenoids and the epiglottis. Consider consider tonsillitis mild epiglottitis, potentially a viral or bacterial process or chronic inflammatory change possibly associated with reflux. No visualized abscess formation.. Incidental visualization of a thickened appearance of the esophagus which may represent esophagitis. Potentially severe reflux could have this appearance. Mild sinusitis. Electronically Signed: Marcelina Chong MD at 4:12 EST , Echocardiogram 11/02/21 03:44 Interpretation Summary The estimated ejection fraction is 55-60 %. Mild Infero- basal Hypokinesia No significant changes from prior Echo Ordering Physician: Shannon Chavez Referring Physician: Jaime Meyer Chi Performed By: Dawn Hyde, ANN, RVT Assessment & Plan Assessment/Plan (1) Hematemesis: PLAN: The differential diagnosis for his hematemesis does include an otherwise tear, or esophagitis, upper GI bleed secondary to peptic ulcer disease. He will undergo an upper endoscopy evaluate his upper GI tract and. He was explained alternatives, risks, benefits including not withstanding bleedi ng, infection, sepsis, perforation, need for urgent periorbit ASA of 3. Charges/Coding Visit Charges Inpatient E&M: 68336 Init Hosp L2
[2021-11-02 13:35] LABS: Bedside Glucose 251 mg/dL (70-110)
--- NOTE | 2021-11-02 13:56 | SUR.PHASEI ---
THIS NURSE TOOK OVER CARE OF THE PT AT 1345.
--- NOTE | 2021-11-02 14:02 | OP.EGD_ITS ---
Patient Name: Luke Wynne Procedure Date: 11/02/2021 12:47 PM Date of : 1955 Age: 66 Procedure: Upper GI endoscopy Indications: Dysphagia Providers: Juan Middleton DO Referring MD: Shannon Chavez Medicines: See the Anesthesia note for documentation of the administered medications Patient Profile: This is a 66 year old male. Refer to note in patient chart for documentation of history and physical. Patient has symptoms of dysphagia with both liquids and solids. The symptoms first began 01,. Complications: No immediate complications. Procedure: Pre-Anesthesia Assessment: - Prior to the procedure, a History and Physical was performed, and patient medications and allergies were reviewed. The patient is competent. The risks and benefits of the procedure and the sedation options and risks were discussed with the patient. All questions were answered and informed consent was obtained. Patient identification and proposed procedure were verified by the physician in the pre-procedure area. Mental Status Examination: alert and oriented. Airway Examination: normal oropharyngeal airway and neck mobility. Respiratory Examination: clear to auscultation. CV Examination: normal. Prophylactic Antibiotics: The patient does not require prophylactic antibiotics. Prior Anticoagulants: The patient has taken no previous anticoagulant or antiplatelet agents. ASA Grade Assessment: II - A patient with mild systemic disease. After reviewing the risks and benefits, the patient was deemed in satisfactory condition to undergo the procedure. The anesthesia plan was to use moderate sedation / analgesia (conscious sedation). Immediately prior to administration of medications, the patient was re-assessed for adequacy to receive sedatives. The heart rate, respiratory rate, oxygen saturations, blood pressure, adequacy of pulmonary ventilation, and response to care were monitored throughout the procedure. The physical status of the patient was re-assessed after the procedure. After obtaining informed consent, the endoscope was passed under direct vision. Throughout the procedure, the patient's blood pressure, pulse, and oxygen saturations were monitored continuously. The Endoscope was introduced through the mouth, and advanced to the second part of duodenum. The upper GI endoscopy was accomplished without difficulty. The patient tolerated the procedure well. Moderate Sedation: Moderate (conscious) sedation was administered by the endoscopy nurse and supervised by the endoscopist. The patient's oxygen saturation, heart rate, blood pressure and response to care were monitored. Total physician intraservice time was 15 minutes. Scope In: 1:05:53 PM Scope Out: 1:10:07 PM Total Procedure Duration Time 0 hours 4 minutes 14 seconds Findings: Thrush was found diffusely, throughout the larynx. LA Grade D (one or more mucosal breaks involving at least 75% of esophageal circumference) esophagitis with no bleeding was found 19 to 40 cm from the incisors. Biopsies were taken with a cold forceps for histology. Verification of patient identification for the specimen was done. Estimated blood loss was minimal. A 9 mm non-bleeding Kalie-Acevedo tear with no stigmata of recent bleeding was found. Diffuse moderate inflammation characterized by congestion (edema) and erosions was found in the entire examined stomach. The second portion of the duodenum was normal. Impression: - Thrush was visualized diffusely, throughout the larynx. - LA Grade D candidiasis esophagitis. Biopsied. - Kalie-Acevedo tear. - Gastritis. - Normal second portion of the duodenum. Recommendation: - [facility]. - Clear liquid diet today. - Use Protonix (pantoprazole) 40 mg PO BID for 8 weeks. - Continue present medications. Procedure Code(s): --- Professional --- 24809, Esophagogastroduodenoscopy, flexible, transoral; with biopsy, single or multiple 03417, 59, Moderate sedation services provided by the same physician or other qualified health infant caregiver performing the diagnostic or therapeutic service that the sedation supports, requiring the presence of an independent trained observer to assist in the monitoring of the patient's level of consciousness and physiological status; initial 15 minutes of intraservice time, patient age 5 years or older CPT copyright 2017 [employer]. All rights reserved. The codes documented in this report are preliminary and upon conditioner tumbler operator review may be revised to meet current compliance requirements. Juan Middleton DO 11/02/2021 2:02:15 PM This report has been signed electronically. Number of Addenda: 1 Note Initiated On: 11/02/2021 12:47 PM Addendum Number: 1 Addendum Date: 06/10/2022 6:51:57 AM MAC was used for sedation during this procedure. Juan Middleton DO 06/10/2022 6:52:00 AM This report has been signed electronically.
--- NOTE | 2021-11-02 14:04 | OP.CCLET_ITS ---
06/10/2022 Jaime Meyer MD [address] [place] [address] Re : Upper GI endoscopy procedure for Luke Wynne Dear Dr. Meyer This procedure was performed on Tuesday, November 02, 2021. My impressions and recommendations are as follows: Impressions : - Thrush was visualized diffusely, throughout the larynx. - LA Grade D candidiasis esophagitis. Biopsied. - Kalie-Acevedo tear. - Gastritis. - Normal second portion of the duodenum. Recommendations : - [facility]. - Clear liquid diet today. - Use Protonix (pantoprazole) 40 mg PO BID for 8 weeks. - Continue present medications. My findings are described in the full procedure note, which is enclosed. If I can be of further assistance, please feel free to contact me at . Sincerely, Juan Middleton, 11/02/2021 2:02:15 PM This report has been signed electronically.
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
[2021-11-02] MEDS: Ondansetron 4 MG/2 ML Vial IV (16:37)
[2021-11-02 17:16] LABS: Bedside Glucose 244 mg/dL (70-110)
[2021-11-02] MEDS: Tamsulosin HCl 0.4 MG Capsule PO (17:43)
[2021-11-02] MEDS: Fluconazole 100 MG Tablet 200 MG PO (17:43)
[2021-11-02] MEDS: Atorvastatin Calcium 40 MG Tablet PO (21:38)
[2021-11-02 22:41] LABS: Bedside Glucose 221 mg/dL (70-110)
[2021-11-03] VITALS (10 sets, daily range): BP systolic 130–149; BP diastolic 54–80; PULSE 65–80; RESP 16–22; TEMP 36.7–36.9; O2SAT 92–95
[2021-11-03 03:40] LABS: Vancomycin, Trough Level 17.1 ug/mL (5.0-15.0)
--- NOTE | 2021-11-03 04:25 | PCM.RX.CS ---
Consult Pharmacy has been consulted to manage selected antiobiotic: Vancomycin Type of Consult: Follow-up Labs: Sodium 135 mmol/L (136-145) L 11/02/21 04:55 Potassium 4.7 mmol/L (3.5-5.1) 11/02/21 04:55 Chloride 104 mmol/L (98-107) 11/02/21 04:55 Carbon Dioxide 23.0 mmol/L (21.0-32.0) 11/02/21 04:55 Anion Gap 8 (5-15) 11/02/21 04:55 BUN 14 mg/dL (7-18) 11/02/21 04:55 Creatinine 0.80 mg/dL (0.70-1.30) 11/02/21 04:55 Est GFR (MDRD) Af Amer 124 mL/min (>60) 11/02/21 04:55 Est GFR (MDRD) Non-Af 103 mL/min (>60) 11/02/21 04:55 BUN/Creatinine Ratio 17.5 RATIO (10-20) 11/02/21 04:55 Glucose 125 mg/dL (74-106) H 11/02/21 04:55 Vancomycin Trough 17.1 ug/mL (5.0-15.0) H 11/03/21 02:33 Microbiology: Microbiology 11/02/21 10:35 Wound - Left Foot Gram Stain - Final 11/02/21 08:15 Sputum, Expectorated/Coughed Gram Stain - Final 11/02/21 07:35 Urine, Random Legionella Antigen - Final 11/02/21 07:35 Urine, Random Streptococcus pneumoniae Antigen (M - Final 11/02/21 04:50 Mucosa - Nasopharyngeal Respiratory Panel (PCR) - Final 11/02/21 03:10 Stool Stool Occult Blood (JAKE) - Final 11/02/21 00:55 Nasal Secretion SARS-CoV-2 Antigen (Rapid) - Final 11/01/21 23:30 Vomitus Gastric Occult Blood - Final Occult Blood Positive Goal Trough: 15-20 mcg/mL Pharmacy Plan for Drug Dosing: Pharmacy Service will continue to monitor and adjust dosing as required. TROUGH 17.1 AT 7.5 HRS. NO CHANGES FOLLOW UP TROUGH IN 2 DAYS Follow-Up Labs: Trough Vancomycin Labs to be done on [date and time ordered]: 11/05 @ 9947
[2021-11-03 06:16] LABS: Bedside Glucose 262 mg/dL (70-110)
--- NOTE | 2021-11-03 07:39 | PN.HOSP_ITS ---
Subjective Subjective Patient seen remains on Protonix drip. Seen by GI plan is for patient to undergo endoscopic evaluation. Wound cultures so far growing gram-negative rods. Patient MRSA swab also came back positive. Objective Data Objective Data Vital Signs: Vital Signs Temp Pulse Resp BP Pulse Ox 98.4 F 80 22 H 130/80 H 94 11/03/21 03:41 11/03/21 03:41 11/03/21 03:41 11/03/21 03:41 11/03/21 03:41 Oxygen Flow Rate (L/min) 2 Oxygen Delivery Method Room Air Weight: 152.4 kg Body Mass Index (BMI) 43.8 Intake & Output: Intake and Output for Last 24 Hours 11/01/21 11/02/21 11/03/21 23:59 23:59 23:59 Intake Total 4094.17 / 4094.17 530 / 530 Output Total 1225 / 1375 500 / 500 Balance 2869.17 / 2719.17 30 Lab / Micro Data Result Diagrams: 11/02/21 04:55 11/02/21 04:55 Labs: Laboratory Results - last 24 hr 11/02/21 08:25: Troponin I High Sens 8 11/02/21 10:35: S.aureus Protein A PCR POSITIVE H, MRSA (PCR) POSITIVE H 11/02/21 12:07: POC Glucose 264 H 11/02/21 13:32: POC Glucose 251 H 11/02/21 17:08: POC Glucose 244 H 11/02/21 22:36: POC Glucose 221 H 11/03/21 02:33: Vancomycin Trough 17.1 H 11/03/21 06:11: POC Glucose 262 H Micro: Microbiology 11/02/21 10:35 Wound - Left Foot Gram Stain - Final 11/02/21 08:15 Sputum, Expectorated/Coughed Gram Stain - Final 11/02/21 07:35 Urine, Random Legionella Antigen - Final 11/02/21 07:35 Urine, Random Streptococcus pneumoniae Antigen (M - Final 11/02/21 04:50 Mucosa - Nasopharyngeal Respiratory Panel (PCR) - Final 11/02/21 03:10 Stool Stool Occult Blood (JAKE) - Final 11/02/21 00:55 Nasal Secretion SARS-CoV-2 Antigen (Rapid) - Final 11/01/21 23:30 Vomitus Gastric Occult Blood - Final Occult Blood Positive Radiography Diagnostic Testing: Radiology Impression Echocardiogram 11/02/21 03:44 Interpretation Summary The estimated ejection fraction is 55-60 %. Mild Infero- basal Hypokinesia No significant changes from prior Echo Ordering Physician: Shannon Chavez Referring Physician: Jaime Meyer Chi Performed By: Dawn Hyde RDCS, RVT Physical Exam Narrative GENERAL: cooperative HEENT: Uvula edematous and erythematous; EYES; Anicteric, Normal Conjunctiva NECK; supple, normal thyroid, RESPIRATORY: Diminished to auscultation CARDIOVASCULAR: Regular S1 S2, GI: soft, normoactive bowel sounds, : No Renal angle tenderness; EXTREMITIES: No edema, no clubbing, MUSCULOSKELETAL: no muscle wasting NEURO: Awake; no lateralizing signs. SKIN: Left foot diabetic wound infection PSYCH; Flat affect Assessment & Plan Assessment/Plan (1) Epiglottitis: (2) GI bleed: QUALIFIERS: GI bleed type/associated pathology: unspecified gastrointestinal hemorrhage type Qualified Code(s): K92.2 - Gastrointestinal hemorrhage, unspecified (3) Hypoglycemia: (4) Syncope: QUALIFIERS: Syncope type: unspecified Qualified Code(s): R55 - Syncope and collapse PLAN: Patient is a 66-year-old gentleman admitted with coffee-ground emesis and hypoglycemia. Patient was found to have radiographic features consistent with epiglottitis. Started on antibiotics admitted to the intensive care unit 1. Acute epiglottitis ?Admitted to the intensive care unit with concerns for airway compromise. Patient was started on broad-spectrum antibiotic therapy with ceftriaxone and vancomycin. Consultation placed to both pulmonary medicine as well as ENT. Patient had significant elevated WBC count on admission. Progress being monitored by trending daily CBC -11/03/2021; throat culture so far negative to date 2. Upper GI bleed ?Patient did experience coffee-ground emesis. Placed on Protonix drip consultation placed to GI ?11/03/2021 patient was seen in consultation by Dr. Middleton with GI. Upper EGD planned 3. Diabetes mellitus type 2 with hypoglycemia ?Patient oral agent held on admission resuscitated with D5 with every 6 Accu- Cheks ordered ?11/03/2021 patient blood glucose control remained labile subsequent adjustment made in his regimen with Accu-Cheks before meals and at bedtime ordered for evaluation 4. Suspected diabetic wound infection involving the left lower extremity. -Consult placed wound care nurse ?11/03/2021; patient MRSA swab came back positive cultures sent so far growing gram-negative rods patient remains on Rocephin as well as vancomycin 5. Hypertension - Blood pressure controlled, home medications continued with dose adjustment as needed 6. Dyslipidemia -Patient is on statin therapy, continued at home dose 7. Class III obesity with BMI of 43.4 -Weight loss advised 8. Obstructive sleep apnea -PAP therapy at at bedtime 9. GERD ?On PPI 10. PH ?Patient is on tamsulosin 11. Tobacco dependence - Counseled on cessation, offered nicotine patch for tobacco cravings 12. Depression with anxiety ?Patient is on Wellbutrin did continue 13. DVT prophylaxis ?SCDs only given patient's presentation?coffee-ground emesis Charges/Coding Visit Charges Inpatient E&M: 43479 Subs Hosp L3
[2021-11-03] MEDS: Fluconazole 100 MG Tablet 200 MG PO (08:55)
[2021-11-03] MEDS: buPROPion (XL) 150 MG TABLET.XL PO ×2 (08:55→21:10)
[2021-11-03] MEDS: Lisinopril 40 MG Tablet PO (08:55)
[2021-11-03] MEDS: Gabapentin 600 MG Tablet PO ×3 (08:55→17:01)
[2021-11-03 10:50] LABS: Bedside Glucose 277 mg/dL (70-110)
[2021-11-03 14:16] LABS: Bedside Glucose 248 mg/dL (70-110)
[2021-11-03] MEDS: Tamsulosin HCl 0.4 MG Capsule PO (17:01)
[2021-11-03 17:11] LABS: Bedside Glucose 248 mg/dL (70-110)
[2021-11-03] MEDS: 0.9% Saline Lock 10 ML Syringe IV (18:31)
[2021-11-03] MEDS: Atorvastatin Calcium 40 MG Tablet PO (21:09)
[2021-11-03] MEDS: Ceftriaxone 1 GM/50 ML BAG IV (21:35)
[2021-11-03 21:41] LABS: Bedside Glucose 236 mg/dL (70-110)
[2021-11-04] VITALS (9 sets, daily range): BP systolic 130–156; BP diastolic 66–103; PULSE 62–104; RESP 18–20; TEMP 36.4–36.8; O2SAT 92–97
[2021-11-04 01:31] LABS: Bedside Glucose 258 mg/dL (70-110)
[2021-11-04] MEDS: 0.9% Saline Lock 10 ML Syringe IV ×3 (03:45→18:35)
[2021-11-04 06:35] LABS: Bedside Glucose 216 mg/dL (70-110)
--- NOTE | 2021-11-04 08:07 | PN.HOSP_ITS ---
Subjective Subjective Patient seen, symptoms significantly improved. Patient will be assessed for possible discharge Objective Data Objective Data Vital Signs: Vital Signs Temp Pulse Resp BP Pulse Ox 98.3 F 62 18 131/103 H 97 11/04/21 03:10 11/04/21 07:00 11/04/21 03:10 11/04/21 03:10 11/04/21 03:10 Oxygen Flow Rate (L/min) 2 Oxygen Delivery Method Room Air Weight: 152.7 kg Body Mass Index (BMI) 43.8 Intake & Output: Intake and Output for Last 24 Hours 11/02/21 11/03/21 11/04/21 23:59 23:59 23:59 Intake Total 4094.17 / 4094.17 2260 / 2360 630 / 630 Output Total 1225 / 1375 1825 / 2075 515 / 515 Balance 2869.17 / 2719.17 435 / 285 115 / 115 Lab / Micro Data Result Diagrams: 11/02/21 04:55 11/02/21 04:55 Labs: Laboratory Results - last 24 hr 11/02/21 10:35: S.aureus Protein A PCR POSITIVE H, MRSA (PCR) POSITIVE H 11/03/21 10:44: POC Glucose 277 H 11/03/21 14:08: POC Glucose 248 H 11/03/21 17:07: POC Glucose 248 H 11/03/21 21:05: POC Glucose 236 H 11/04/21 01:27: POC Glucose 258 H 11/04/21 06:27: POC Glucose 216 H Micro: Microbiology 11/02/21 08:15 Sputum, Expectorated/Coughed Gram Stain - Final 11/02/21 08:15 Sputum, Expectorated/Coughed Respiratory Culture - Final 11/02/21 10:35 Wound - Left Foot Gram Stain - Final 11/02/21 10:35 Wound - Left Foot Wound Culture - Final Pseudomonas aeroginosa 11/02/21 07:35 Urine, Random Legionella Antigen - Final 11/02/21 07:35 Urine, Random Streptococcus pneumoniae Antigen (M - Final 11/02/21 04:50 Mucosa - Nasopharyngeal Respiratory Panel (PCR) - Final 11/02/21 03:10 Stool Stool Occult Blood (JAKE) - Final 11/02/21 00:55 Nasal Secretion SARS-CoV-2 Antigen (Rapid) - Final 11/01/21 23:30 Vomitus Gastric Occult Blood - Final Occult Blood Positive Physical Exam Narrative GENERAL: cooperative HEENT: Uvula edematous and erythematous; EYES; Anicteric, Normal Conjunctiva NECK; supple, normal thyroid, RESPIRATORY: Diminished to auscultation CARDIOVASCULAR: Regular S1 S2, GI: soft, normoactive bowel sounds, : No Renal angle tenderness; EXTREMITIES: No edema, no clubbing, MUSCULOSKELETAL: no muscle wasting NEURO: Awake; no lateralizing signs. SKIN: Left foot diabetic wound infection PSYCH; Flat affect Assessment & Plan Assessment/Plan (1) Epiglottitis: (2) GI bleed: QUALIFIERS: GI bleed type/associated pathology: unspecified gastrointestinal hemorrhage type Qualified Code(s): K92.2 - Gastrointestinal hemorrhage, unspecified (3) Hypoglycemia: (4) Syncope: QUALIFIERS: Syncope type: unspecified Qualified Code(s): R55 - Syncope and collapse PLAN: Patient is a 66-year-old gentleman admitted with coffee-ground emesis and hypoglycemia. Patient was found to have radiographic features consistent with epiglottitis. Started on antibiotics admitted to the intensive care unit 1. Acute epiglottitis ?Admitted to the intensive care unit with concerns for airway compromise. Patient was started on broad-spectrum antibiotic therapy with ceftriaxone and vancomycin. Consultation placed to both pulmonary medicine as well as ENT. Patient had significant elevated WBC count on admission. Progress being monitored by trending daily CBC -11/03/2021; throat culture so far negative to date - Patient seen, symptoms significantly improved. Patient will be assessed for possible discharge 2. Upper GI bleed ?Patient did experience coffee-ground emesis. Placed on Protonix drip consultation placed to GI ?11/03/2021 patient was seen in consultation by Dr. Middleton with GI. Upper EGD performed the day prior demonstrated Thrush was visualized diffusely, throughout the larynx. - LA Grade D candidiasis esophagitis. Biopsied. - Kalie-Acevedo tear. - Gastritis. - Normal second portion of the duodenum. Recommendations : - [facility]. - Clear liquid diet today. - Use Protonix (pantoprazole) 40 mg PO BID for 8 weeks. - Continue present medications. 3. Diabetes mellitus type 2 with hypoglycemia ?Patient oral agent held on admission resuscitated with D5 with every 6 Accu- Cheks ordered ?11/03/2021 patient blood glucose control remained labile subsequent adjustment made in his regimen with Accu-Cheks before meals and at bedtime ordered for evaluation 4. Suspected diabetic wound infection involving the left lower extremity. -Consult placed wound care nurse ?11/03/2021; patient MRSA swab came back positive cultures sent so far growing gram-negative rods patient remains on Rocephin as well as vancomycin 5. Hypertension - Blood pressure controlled, home medications continued with dose adjustment as needed 6. Dyslipidemia -Patient is on statin therapy, continued at home dose 7. Class III obesity with BMI of 43.4 -Weight loss advised 8. Obstructive sleep apnea -PAP therapy at at bedtime 9. GERD ?On PPI 10. PH ?Patient is on tamsulosin 11. Tobacco dependence - Counseled on cessation, offered nicotine patch for tobacco cravings 12. Depression with anxiety ?Patient is on Wellbutrin did continue 13. DVT prophylaxis ?SCDs only given patient's presentation?coffee-ground emesis Charges/Coding Visit Charges Inpatient E&M: 44708 Subs Hosp L2
[2021-11-04] MEDS: buPROPion (XL) 150 MG TABLET.XL PO ×2 (09:48→21:00)
[2021-11-04] MEDS: Gabapentin 600 MG Tablet PO ×3 (09:48→17:03)
[2021-11-04] MEDS: Pantoprazole Sodium 40 MG Tablet PO ×2 (09:48→20:59)
[2021-11-04] MEDS: Lisinopril 40 MG Tablet PO (09:48)
[2021-11-04] MEDS: Fluconazole 100 MG Tablet 200 MG PO (09:48)
--- NOTE | 2021-11-04 10:02 | DS.PCM_ITS ---
Providers Date of Admission: 11/02/21 Primary Care Physician: Dr. Jaime Meyer MD Consultations 11/02/21 03:44 Consult: ENT Routine Consulting Provider: Leonardo Ba Reason for Consult: Epiglottitis EMERGENT Consult: No Notified: Yes Date Notified: 11/02/21 Time Notified: 02:06 Method of Notification: Text Consult: Gastroenterology Routine Consulting Provider: Juan Middleton Reason for Consult: Possible GI bleed, patient reporting hematemesis EMERGENT Consult: No Notified: Yes Date Notified: 11/02/21 Time Notified: 01:47 Method of Notification: Text Consult: Advance Seal Delivery System Maintainer / Pulmonary Medicine Routine Consulting Provider: Austen Toney Reason for Consult: Epiglottitis, airway concern, ? 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 GI BLEED, QUESTIONABLE EPIGLOTTIS, SYNCOPE Diagnosis Discharge Diagnosis (1) Epiglottitis: Status: Acute Code(s): J05.10 - Acute epiglottitis without obstruction (2) GI bleed: Status: Acute Code(s): K92.2 - Gastrointestinal hemorrhage, unspecified Qualifiers: GI bleed type/associated pathology: unspecified gastrointestinal hemorrhage type Qualified Code(s): K92.2 - Gastrointestinal hemorrhage, unspecified (3) Hypoglycemia: Status: Acute Code(s): E16.2 - Hypoglycemia, unspecified (4) Syncope: Status: Acute Code(s): R55 - Syncope and collapse Qualifiers: Syncope type: unspecified Qualified Code(s): R55 - Syncope and collapse Medications at Discharge Home Medications calcium carbonate 500 mg PO DAILY 06/23/17 multivitamin 1 ea PO DAILY 06/23/17 atorvastatin 40 mg tablet 40 mg PO DAILY 10/18/19 bupropion HCl 150 mg 24 hr tablet, extended release 150 mg PO BID tab 10/18/19 tamsulosin 0.4 mg capsule 0.4 mg PO DAILY@1730 cap 10/18/19 gabapentin 300 mg capsule 600 mg PO TIDCM cap 04/24/20 aspirin 81 mg tablet,delayed release 81 mg PO DAILY tab 07/28/20 lancets 09/01/20 acetaminophen 1,000 mg PO Q6H PRN tab 10/03/20 tramadol 50 mg PO Q6H PRN PRN #28 tab 10/03/20 naproxen 500 mg tablet 500 mg PO BID PRN 10/31/20 blood-glucose transmitter #1 ea 11/30/20 dulaglutide 0.75 mg/0.5 mL subcutaneous pen injector 0.75 mg SUBCUT QWEEK #2 ml 07/26/21 blood sugar diagnostic #100 ea 08/06/21 lisinopril 40 mg tablet 40 mg PO DAILY #90 tab 08/06/21 flash glucose sensor #2 ea 08/23/21 Farxiga 10 mg tablet 10 mg PO DAILY #90 tab NS 09/03/21 Humulin R U-500 (Conc) Kwikpen 500 unit/mL (3 mL) subcutaneous 110 unit SUBCUT TID #27 ml NS 10/22/21 Weight / BMI Weight Weight: 152.7 kg Body Mass Index (BMI) 43.8 ABG / Lab / Microbiology Data Result Diagrams: 11/02/21 04:55 11/02/21 04:55 Laboratory: Laboratory Results - last 24 hr 11/03/21 10:44: POC Glucose 277 H 11/03/21 14:08: POC Glucose 248 H 11/03/21 17:07: POC Glucose 248 H 11/03/21 21:05: POC Glucose 236 H 11/04/21 01:27: POC Glucose 258 H 11/04/21 06:27: POC Glucose 216 H Microbiology: Microbiology 11/02/21 08:15 Sputum, Expectorated/Coughed Gram Stain - Final 11/02/21 08:15 Sputum, Expectorated/Coughed Respiratory Culture - Final 11/02/21 10:35 Wound - Left Foot Gram Stain - Final 11/02/21 10:35 Wound - Left Foot Wound Culture - Final Pseudomonas aeroginosa 11/02/21 07:35 Urine, Random Legionella Antigen - Final 11/02/21 07:35 Urine, Random Streptococcus pneumoniae Antigen (M - Final 11/02/21 04:50 Mucosa - Nasopharyngeal Respiratory Panel (PCR) - Final 11/02/21 03:10 Stool Stool Occult Blood (JAKE) - Final 11/02/21 00:55 Nasal Secretion SARS-CoV-2 Antigen (Rapid) - Final 11/01/21 23:30 Vomitus Gastric Occult Blood - Final Occult Blood Positive Discharge Plan Admission Admit Date/Time: 11/02/21 01:43 Attending Provider: Rosales Aguilar Primary Care Provider: Jaime Meyer Chi Consulting Providers: Leonardo Ba ; Friend,Juan ; FengAusten Discharge Orders/Prescriptions Prescriptions: No Action tamsulosin 0.4 mg capsule 0.4 mg PO DAILY@1730 RF: 0 atorvastatin 40 mg tablet 40 mg PO DAILY RF: 0 bupropion HCl 150 mg tablet extended release 24 hr 150 mg PO BID RF: 0 aspirin [Adult Low Dose Aspirin] 81 mg tablet,delayed release (DR/EC) 81 mg PO DAILY RF: 0 naproxen 500 mg tablet 500 mg PO BID PRN (Reason: Pain) RF: 0 Trulicity 0.75 mg/0.5 mL pen injector 0.75 mg subcut QWEEK Qty: 2 RF: 3 multivitamin 1 EACH tablet 1 ea PO DAILY RF: 0 calcium carbonate 500 MG tablet 500 mg PO DAILY RF: 0 gabapentin 300 mg capsule 600 mg PO TIDCM RF: 0 (DME) lancets 1 EACH misc See Rx Instructions .Route .MEDSUPPLY RF: 0 tramadol 50 MG tablet 50 mg PO Q6H PRN PRN (Reason: Pain Score 6-10) Qty: 28 RF: 0 acetaminophen 500 MG tablet 1,000 mg PO Q6H PRN (Reason: Pain Score 1-5) RF: 0 (DME) Dexcom G6 Transmitter Device See Rx Instructions .ROUTE .MEDSUPPLY Qty: 1 RF: 1 (DME) OneTouch Verio test strips Strip See Rx Instructions .ROUTE .MEDSUPPLY Qty: 100 RF: 8 lisinopril 40 mg tablet 40 mg PO DAILY Qty: 90 RF: 1 (DME) FreeStyle Heather 2 Sensor Kit See Rx Instructions .ROUTE .MEDSUPPLY Qty: 2 RF: 6 Farxiga 10 mg tablet 10 mg PO DAILY Qty: 90 RF: 1 Humulin R U-500 (Conc) Kwikpen 500 unit/mL (3 mL) insulin pen 110 unit subcut TID Qty: 27 RF: 5 Referrals / Follow Up: Juan Arteaga MD [STAFF PHYSICIAN] - 11/15/21 10:30 am Jaime Meyer Chi, MD [Primary Care Provider] - Charges/Coding Visit Charges Inpatient E&M: 54369 Disch Hosp
[2021-11-04 10:05] LABS: Bedside Glucose 280 mg/dL (70-110)
[2021-11-04] MEDS: levoFLOXacin 500 MG Tablet PO (11:37)
--- NOTE | 2021-11-04 13:32 | PCM.PROGNOTE ---
Subjective Subjective Patient underwent an upper endoscopy yesterday for esophageal dysphagia. He wasScheduled to be discharged however his cultures came back positive for Pseudomonas. Objective Data Objective Data Vital Signs: Vital Signs Temp Pulse Resp BP Pulse Ox 98.3 F 81 18 130/66 H 92 11/04/21 09:45 11/04/21 09:45 11/04/21 09:45 11/04/21 09:45 11/04/21 09:45 Oxygen Flow Rate (L/min) 2 Oxygen Delivery Method Room Air Weight: 336 lb 10.334 oz Body Mass Index (BMI) 43.8 Intake & Output: Intake and Output for Last 24 Hours 11/02/21 11/03/21 11/04/21 23:59 23:59 23:59 Intake Total 4094.17 / 4094.17 2260 / 2360 990 / 990 Output Total 1225 / 1375 1825 / 2075 690 / 690 Balance 2869.17 / 2719.17 435 / 285 300 / 300 Lab / Micro Data Result Diagrams: 11/02/21 04:55 11/02/21 04:55 Labs: Laboratory Results - last 24 hr 11/03/21 14:08: POC Glucose 248 H 11/03/21 17:07: POC Glucose 248 H 11/03/21 21:05: POC Glucose 236 H 11/04/21 01:27: POC Glucose 258 H 11/04/21 06:27: POC Glucose 216 H 11/04/21 10:00: POC Glucose 280 H Micro: Microbiology 11/02/21 10:35 Wound - Left Foot Gram Stain - Final 11/02/21 10:35 Wound - Left Foot Wound Culture - Final Pseudomonas aeroginosa 11/02/21 10:35 Wound - Left Foot Anaerobic Culture - Preliminary Checking for anaerobes, further studies to follow. 11/02/21 08:15 Sputum, Expectorated/Coughed Gram Stain - Final 11/02/21 08:15 Sputum, Expectorated/Coughed Respiratory Culture - Final 11/02/21 07:35 Urine, Random Legionella Antigen - Final 11/02/21 07:35 Urine, Random Streptococcus pneumoniae Antigen (M - Final 11/02/21 04:50 Mucosa - Nasopharyngeal Respiratory Panel (PCR) - Final 11/02/21 03:10 Stool Stool Occult Blood (JAKE) - Final 11/02/21 00:55 Nasal Secretion SARS-CoV-2 Antigen (Rapid) - Final 11/01/21 23:30 Vomitus Gastric Occult Blood - Final Occult Blood Positive Physical Exam Const alert General Appearance: cooperative Orientation / Consciousness: oriented to person HEENT hearing grossly normal bilaterally Head and Scalp: normal to inspection Face and Sinus: face symmetric Nose: external nose normal Mouth: oral and palatal mucosa normal Eyes conjunctivae normal General Eye: normal appearance of both eyes Neck full ROM General: normal visual inspection Lymph Lymphatic: no lymphadenopathy noted Chest inspection of chest normal and palpation of chest normal Chest: symmetrical chest wall rise Resp normal respiratory effort Effort and Inspection: able to speak in complete sentences Cardio regular rate GI non-distended Percussion: normal to percussion Rectal Exam: deferred Neuro Speech: speech normal Gait (Neuro): normal gait Assessment & Plan Assessment/Plan (1) Hematemesis: PLAN: He was discovered to have severe erosive esophagitis,Giulia esophagitis and severe gastritis. He was placed on fluconazole therapy which she will continue while he is in the hospital. He should also get nystatin swish and swallow. Along with PPI therapy. Recommend strict glucose control. He will need repeat endoscopy in the futureTo ensure full healing. Charges/Coding Visit Charges Inpatient E&M: 20984 Subs Hosp L2
[2021-11-04 14:11] LABS: Bedside Glucose 284 mg/dL (70-110)
[2021-11-04 16:46] LABS: Bedside Glucose 222 mg/dL (70-110)
[2021-11-04] MEDS: Insulin U-500 UNITS/ML PEN 20 UNITS SC (17:02)
[2021-11-04] MEDS: Tamsulosin HCl 0.4 MG Capsule PO (17:03)
[2021-11-04] MEDS: Atorvastatin Calcium 40 MG Tablet PO (20:59)
[2021-11-04 21:10] LABS: Bedside Glucose 260 mg/dL (70-110)
[2021-11-05 01:15] LABS: Bedside Glucose 265 mg/dL (70-110)
[2021-11-05 03:10] VITALS: BP 166/55; PULSE 63; RESP 18; TEMP 36.3; O2SAT 94
[2021-11-05] MEDS: 0.9% Saline Lock 10 ML Syringe IV (03:11)
[2021-11-05 03:31] VITALS: PULSE 69
[2021-11-05 03:55] LABS: Vancomycin, Trough Level 18.9 ug/mL (5.0-15.0)
[2021-11-05] MEDS: levoFLOXacin 500 MG Tablet PO (05:59)
--- NOTE | 2021-11-05 06:25 | PCM.RX.CS ---
Consult Pharmacy has been consulted to manage selected antiobiotic: Vancomycin Type of Consult: Follow-up Labs: Sodium 135 mmol/L (136-145) L 11/02/21 04:55 Potassium 4.7 mmol/L (3.5-5.1) 11/02/21 04:55 Chloride 104 mmol/L (98-107) 11/02/21 04:55 Carbon Dioxide 23.0 mmol/L (21.0-32.0) 11/02/21 04:55 Anion Gap 8 (5-15) 11/02/21 04:55 BUN 14 mg/dL (7-18) 11/02/21 04:55 Creatinine 0.80 mg/dL (0.70-1.30) 11/02/21 04:55 Est GFR (MDRD) Af Amer 124 mL/min (>60) 11/02/21 04:55 Est GFR (MDRD) Non-Af 103 mL/min (>60) 11/02/21 04:55 BUN/Creatinine Ratio 17.5 RATIO (10-20) 11/02/21 04:55 Glucose 125 mg/dL (74-106) H 11/02/21 04:55 Vancomycin Trough 18.9 ug/mL (5.0-15.0) H 11/05/21 02:40 Microbiology: Microbiology 11/02/21 10:35 Wound - Left Foot Gram Stain - Final 11/02/21 10:35 Wound - Left Foot Wound Culture - Final Pseudomonas aeroginosa 11/02/21 10:35 Wound - Left Foot Anaerobic Culture - Preliminary Checking for anaerobes, further studies to follow. 11/02/21 08:15 Sputum, Expectorated/Coughed Gram Stain - Final 11/02/21 08:15 Sputum, Expectorated/Coughed Respiratory Culture - Final 11/02/21 07:35 Urine, Random Legionella Antigen - Final 11/02/21 07:35 Urine, Random Streptococcus pneumoniae Antigen (M - Final 11/02/21 04:50 Mucosa - Nasopharyngeal Respiratory Panel (PCR) - Final 11/02/21 03:10 Stool Stool Occult Blood (JAKE) - Final 11/02/21 00:55 Nasal Secretion SARS-CoV-2 Antigen (Rapid) - Final 11/01/21 23:30 Vomitus Gastric Occult Blood - Final Occult Blood Positive Goal Trough: 15-20 mcg/mL Pharmacy Plan for Drug Dosing: Pharmacy Service will continue to monitor and adjust dosing as required. TROUGH 18.9 @ 8 HRS. NO CHANGES FOLLOW UP TROUGH IN 4 DAYS Follow-Up Labs: Trough Vancomycin Labs to be done on [date and time ordered]: 11/09 @ 4674
[2021-11-05 07:07] VITALS: PULSE 87
[2021-11-05] MEDS: Insulin U-500 UNITS/ML PEN 20 UNITS SC ×2 (08:05→12:39)
[2021-11-05 08:09] VITALS: BP 148/82; PULSE 70; RESP 20; TEMP 36.8; O2SAT 97
[2021-11-05 08:10] VITALS: O2SAT 97
[2021-11-05] MEDS: Lisinopril 40 MG Tablet PO (08:11)
[2021-11-05] MEDS: Pantoprazole Sodium 40 MG Tablet PO (08:12)
[2021-11-05] MEDS: Fluconazole 100 MG Tablet 200 MG PO (08:12)
[2021-11-05] MEDS: Gabapentin 600 MG Tablet PO (08:12)
[2021-11-05] MEDS: Empagliflozin 25 MG Tablet PO (08:12)
[2021-11-05] MEDS: buPROPion (XL) 150 MG TABLET.XL PO (08:13)
[2021-11-05 08:25] LABS: Bedside Glucose 213 mg/dL (70-110)
--- NOTE | 2021-11-05 10:24 | PCM.DC ---
Discharge Instructions Diet Discharge Diet: 1999 Calorie Control Diet Activity Discharge Activity: Return to Normal Activity Dressing / Incision Call your doctor if you observe: - (vomiting blood. blood in stools. dark tarry stools.) Follow Up Care Test Results: Test results from this visit will be discussed in further detail at your follow-up appointment, if applicable. Discharge Plan Admission Admit Date/Time: 11/02/21 01:43 Primary Reason for Your Visit: supraglottitis. kelly esophagitis Attending Provider: Roni Alberto Primary Care Provider: Jaime Meyer Chi Consulting Providers: Leonardo Ba ; Emi,Juan ; Austen Toney ; Teo Pathak Discharge Orders/Prescriptions Prescriptions: New levofloxacin 750 mg tablet 750 mg PO DAILY Qty: 5 RF: 0 fluconazole 100 mg Tablet 200 mg PO DAILY 10 Days Qty: 20 RF: 0 clindamycin HCl 300 mg capsule 300 mg PO TID Qty: 15 RF: 0 pantoprazole 40 mg tablet,delayed release (DR/EC) 40 mg PO BID Qty: 60 RF: 0 Continued tamsulosin 0.4 mg capsule 0.4 mg PO DAILY@1730 RF: 0 atorvastatin 40 mg tablet 40 mg PO DAILY RF: 0 bupropion HCl 150 mg tablet extended release 24 hr 150 mg PO BID RF: 0 aspirin [Adult Low Dose Aspirin] 81 mg tablet,delayed release (DR/EC) 81 mg PO DAILY RF: 0 naproxen 500 mg tablet 500 mg PO BID PRN (Reason: Pain) RF: 0 Trulicity 0.75 mg/0.5 mL pen injector 0.75 mg subcut QWEEK Qty: 2 RF: 3 multivitamin 1 EACH tablet 1 ea PO DAILY RF: 0 calcium carbonate 500 MG tablet 500 mg PO DAILY RF: 0 gabapentin 300 mg capsule 600 mg PO TIDCM RF: 0 (DME) lancets 1 EACH misc See Rx Instructions .Route .MEDSUPPLY RF: 0 acetaminophen 500 MG tablet 1,000 mg PO Q6H PRN (Reason: Pain Score 1-5) RF: 0 (DME) Dexcom G6 Transmitter Device See Rx Instructions .ROUTE .MEDSUPPLY Qty: 1 RF: 1 (DME) OneTouch Verio test strips Strip See Rx Instructions .ROUTE .MEDSUPPLY Qty: 100 RF: 8 lisinopril 40 mg tablet 40 mg PO DAILY Qty: 90 RF: 1 (DME) FreeStyle Heather 2 Sensor Kit See Rx Instructions .ROUTE .MEDSUPPLY Qty: 2 RF: 6 Farxiga 10 mg tablet 10 mg PO DAILY Qty: 90 RF: 1 Humulin R U-500 (Conc) Kwikpen 500 unit/mL (3 mL) insulin pen 110 unit subcut TID Qty: 27 RF: 5 Discontinued tramadol 50 MG tablet 50 mg PO Q6H PRN PRN (Reason: Pain Score 6-10) Qty: 28 RF: 0 Referrals / Follow Up: Juan Arteaga MD [STAFF PHYSICIAN] - 11/15/21 10:30 am Jaime Meyer Chi, MD [Primary Care Provider] - Disposition Disposition (needs filled in before D/C Order can be placed): Home, Self Care
--- NOTE | 2021-11-05 10:40 | DS.PCM_ITS ---
Providers Date of Admission: 11/02/21 Primary Care Physician: Dr. Jaime Meyer MD Consultations 11/02/21 03:44 Consult: ENT Routine Consulting Provider: Leonardo Ba Reason for Consult: Epiglottitis EMERGENT Consult: No Notified: Yes Date Notified: 11/02/21 Time Notified: 02:06 Method of Notification: Text Consult: Gastroenterology Routine Consulting Provider: Juan Middleton Reason for Consult: Possible GI bleed, patient reporting hematemesis EMERGENT Consult: No Notified: Yes Date Notified: 11/02/21 Time Notified: 01:47 Method of Notification: Text Consult: [facility] Coordinator / Pulmonary Medicine Routine Consulting Provider: Austen Toney Reason for Consult: Epiglottitis, airway concern, ? GI bleed, Syncope, Hypoglycemia EMERGENT Consult: No Notified: Yes Date Notified: 11/02/21 Time Notified: 02:06 Method of Notification: Text Consult: Onc/Wound/corrosion control fitter Routine Comment: 11/04/21 10:11 Consult: Infectious Disease Routine Consulting Provider: Teo Pathak Reason for Consult: Infected diabetic foot ulcer EMERGENT Consult: No Notified: Yes Date Notified: 11/05/21 Time Notified: 08:24 Method of Notification: Answering Service Reason For Visit: ? GI BLEED, QUESTIONABLE EPIGLOTTIS, SYNCOPE Diagnosis Discharge Diagnosis (1) Hematemesis: Status: Acute Code(s): K92.0 - Hematemesis (2) Supraglottitis: Status: Acute Code(s): J04.30 - Supraglottitis, unspecified, without obstruction (3) Kelly esophagitis: Status: Acute Code(s): B37.81 - Candidal esophagitis (4) Kalie-Acevedo tear: Status: Acute Code(s): K22.6 - Gastro-esophageal laceration-hemorrhage syndrome Medications at Discharge Home Medications calcium carbonate 500 mg PO DAILY 06/23/17 multivitamin 1 ea PO DAILY 06/23/17 atorvastatin 40 mg tablet 40 mg PO DAILY 10/18/19 bupropion HCl 150 mg 24 hr tablet, extended release 150 mg PO BID tab 10/18/19 tamsulosin 0.4 mg capsule 0.4 mg PO DAILY@1730 cap 10/18/19 gabapentin 300 mg capsule 600 mg PO TIDCM cap 04/24/20 aspirin 81 mg tablet,delayed release 81 mg PO DAILY tab 07/28/20 lancets 09/01/20 acetaminophen 1,000 mg PO Q6H PRN tab 10/03/20 naproxen 500 mg tablet 500 mg PO BID PRN 10/31/20 blood-glucose transmitter #1 ea 11/30/20 dulaglutide 0.75 mg/0.5 mL subcutaneous pen injector 0.75 mg SUBCUT QWEEK #2 ml 07/26/21 blood sugar diagnostic #100 ea 08/06/21 lisinopril 40 mg tablet 40 mg PO DAILY #90 tab 08/06/21 flash glucose sensor #2 ea 08/23/21 Farxiga 10 mg tablet 10 mg PO DAILY #90 tab NS 09/03/21 Humulin R U-500 (Conc) Kwikpen 500 unit/mL (3 mL) subcutaneous 110 unit SUBCUT TID #27 ml NS 10/22/21 clindamycin HCl 300 mg PO TID #15 cap 11/05/21 fluconazole 200 mg PO DAILY 10 Days #20 tab 11/05/21 levofloxacin 750 mg PO DAILY #5 tab 11/05/21 pantoprazole 40 mg PO BID #60 tab 11/05/21 Hospital Course Operations None Procedures EGD Summary of Care Provided Minutes Spent on Discharge: 35 Hospital Course: This is a 36-year-old male presents with hematemesis and hypoglycemia. Patient had a CAT scan that showed enlargement of the tonsillar tissue adenoids and the epiglottis. Patient was seen by ENT who did a laryngoscopic he did not show any evidence of epiglottitis but felt the patient had a supraglottitis. Patient was on broad-spectrum antibiotics with levofloxacin and vancomycin. Patient was seen by gastroenterology and EGD was performed and showed grade D Kelly esophagitis, Kalie-Acevedo tear, gastritis. Recommended that patient continue with PPI therapy for 8 weeks and patient has been started on fluconazole. Patient overall is doing well, he has no respiratory distress, no issues with swallowing any further. Patient will continue with fluconazole, levofloxacin, clindamycin and PPI therapy. Patient will follow up with gastroenterology as well. Physical Exam Const Constitutional Narrative: Mallampati stage I Resp normal respiratory effort, no retractions, no use of accessory muscles and clear to auscultation bilaterally Cardio regular rate, regular rhythm, S1 normal heart sound and S2 normal heart sound GI normal to inspection, nondistended, normoactive bowel sounds, soft to palpation, non-tender and non-distended Extremity normal to inspection Weight / BMI Weight Weight: 153.6 kg Body Mass Index (BMI) 43.8 ABG / Lab / Microbiology Data Result Diagrams: 11/02/21 04:55 11/02/21 04:55 Laboratory: Laboratory Results - last 24 hr 11/04/21 14:04: POC Glucose 284 H 11/04/21 16:41: POC Glucose 222 H 11/04/21 20:55: POC Glucose 260 H 11/05/21 01:07: POC Glucose 265 H 11/05/21 02:40: Vancomycin Trough 18.9 H 11/05/21 08:02: POC Glucose 213 H Microbiology: Microbiology 11/02/21 10:35 Wound - Left Foot Gram Stain - Final 11/02/21 10:35 Wound - Left Foot Wound Culture - Final Pseudomonas aeroginosa 11/02/21 10:35 Wound - Left Foot Anaerobic Culture - Final No anaerobic bacteria isolated. 11/02/21 08:15 Sputum, Expectorated/Coughed Gram Stain - Final 11/02/21 08:15 Sputum, Expectorated/Coughed Respiratory Culture - Final 11/02/21 07:35 Urine, Random Legionella Antigen - Final 11/02/21 07:35 Urine, Random Streptococcus pneumoniae Antigen (M - Final 11/02/21 04:50 Mucosa - Nasopharyngeal Respiratory Panel (PCR) - Final 11/02/21 03:10 Stool Stool Occult Blood (JAKE) - Final 11/02/21 00:55 Nasal Secretion SARS-CoV-2 Antigen (Rapid) - Final 11/01/21 23:30 Vomitus Gastric Occult Blood - Final Occult Blood Positive D/C Instructions Discharge Diet: 2000 Calorie Control Diet Call your doctor if you observe: - (vomiting blood. blood in stools. dark tarry stools.) Meaningful Use Info Meaningful Use Diagnoses (Choose all that apply): None applicable Discharge Plan Admission Admit Date/Time: 11/02/21 01:43 Primary Reason for Your Visit: supraglottitis. kelly esophagitis Attending Provider: Roni Alberto Primary Care Provider: Jaime Meyer Chi Consulting Providers: Leonardo Ba ; Juan Middleton ; Austen Toney ; Teo Pathak Discharge Orders/Prescriptions Prescriptions: New levofloxacin 750 mg tablet 750 mg PO DAILY Qty: 5 RF: 0 fluconazole 100 mg Tablet 200 mg PO DAILY 10 Days Qty: 20 RF: 0 clindamycin HCl 300 mg capsule 300 mg PO TID Qty: 15 RF: 0 pantoprazole 40 mg tablet,delayed release (DR/EC) 40 mg PO BID Qty: 60 RF: 0 Continued tamsulosin 0.4 mg capsule 0.4 mg PO DAILY@1730 RF: 0 atorvastatin 40 mg tablet 40 mg PO DAILY RF: 0 bupropion HCl 150 mg tablet extended release 24 hr 150 mg PO BID RF: 0 aspirin [Adult Low Dose Aspirin] 81 mg tablet,delayed release (DR/EC) 81 mg PO DAILY RF: 0 naproxen 500 mg tablet 500 mg PO BID PRN (Reason: Pain) RF: 0 Trulicity 0.75 mg/0.5 mL pen injector 0.75 mg subcut QWEEK Qty: 2 RF: 3 multivitamin 1 EACH tablet 1 ea PO DAILY RF: 0 calcium carbonate 500 MG tablet 500 mg PO DAILY RF: 0 gabapentin 300 mg capsule 600 mg PO TIDCM RF: 0 (DME) lancets 1 EACH misc See Rx Instructions .Route .MEDSUPPLY RF: 0 acetaminophen 500 MG tablet 1,000 mg PO Q6H PRN (Reason: Pain Score 1-5) RF: 0 (DME) Muzic[employer] G6 Transmitter Device See Rx Instructions .ROUTE .MEDSUPPLY Qty: 1 RF: 1 (DME) OneTouch Verio test strips Strip See Rx Instructions .ROUTE .MEDSUPPLY Qty: 100 RF: 8 lisinopril 40 mg tablet 40 mg PO DAILY Qty: 90 RF: 1 (DME) FreeStyle Heather 2 Sensor Kit See Rx Instructions .ROUTE .MEDSUPPLY Qty: 2 RF: 6 Farxiga 10 mg tablet 10 mg PO DAILY Qty: 90 RF: 1 Humulin R U-500 (Conc) Kwikpen 500 unit/mL (3 mL) insulin pen 110 unit subcut TID Qty: 27 RF: 5 Discontinued tramadol 50 MG tablet 50 mg PO Q6H PRN PRN (Reason: Pain Score 6-10) Qty: 28 RF: 0 Referrals / Follow Up: FriendJuan DO [STAFF PHYSICIAN] - Within 1 Month Juan Arteaga MD [STAFF PHYSICIAN] - 11/15/21 10:30 am Jaime Meyer Chi, MD [Primary Care Provider] - Disposition Disposition (needs filled in before D/C Order can be placed): Home, Self Care Charges/Coding Visit Charges Inpatient E&M: 25127 Disch Hosp
--- NOTE | 2021-11-05 11:06 | CASEMGMT ---
Call to Pending sale to [facility] to notify of discharge and D/C summ/instructions faxed, voices understanding. Neftali SULLIVAN CM
[2021-11-05 12:36] LABS: Bedside Glucose 231 mg/dL (70-110)
== END 2021-11-05 13:00 | disposition home or self-care (01) | DRG 152 ==
LOC: ED 22:42 → ICU 11-02 03:09 → PCU 11-05 07:16 → ICU 11-05 11:57 → PCU 11-05 11:58
PROVIDERS: Internal Medicine; Internal Medicine Gastroenterology; Admitting Provider Family Medicine; Emergency Provider Emergency Medicine; PCP Family Medicine Geriatric Medicine; Referring Provider Family Medicine
PROC: 0DJ08ZZ Inspection of Upper Intestinal Tract, Via Natural or Artificial Opening Endoscopic (ICD-10-PCS; CPT 43235; principal; 2021-11-02 17:25)
DX: J04.30 Supraglottitis, unspecified, without obstruction (principal); K27.4 Chronic or unspecified peptic ulcer, site unspecified, with hemorrhage; K22.6 Gastro-esophageal laceration-hemorrhage syndrome; B37.81 Candidal esophagitis; Z68.41 Body mass index [BMI] 40.0-44.9, adult; L97.519 Non-pressure chronic ulcer of other part of right foot with unspecified severity; E11.649 Type 2 diabetes mellitus with hypoglycemia without coma; L97.529 Non-pressure chronic ulcer of other part of left foot with unspecified severity; E11.621 Type 2 diabetes mellitus with foot ulcer; E66.01 Morbid (severe) obesity due to excess calories; B95.62 Methicillin resistant Staphylococcus aureus infection as the cause of diseases classified elsewhere; I10 Essential (primary) hypertension; K21.9 Gastro-esophageal reflux disease without esophagitis; E78.5 Hyperlipidemia, unspecified; F17.210 Nicotine dependence, cigarettes, uncomplicated; K29.70 Gastritis, unspecified, without bleeding; N40.0 Benign prostatic hyperplasia without lower urinary tract symptoms; F41.8 Other specified anxiety disorders; G47.33 Obstructive sleep apnea (adult) (pediatric); R55 Syncope and collapse; F32.A Depression, unspecified; Z79.84 Long term (current) use of oral hypoglycemic drugs; Z79.82 Long term (current) use of aspirin; K21.00 Gastro-esophageal reflux disease with esophagitis, without bleeding; Z99.89 Dependence on other enabling machines and devices
CPT/HCPCS: 36415; 70360; 70491; 74022; 80048; 80053; 80061; 80076; 80202; 82271; 82274; 82962; 83605; 83690; 84145; 84484; 85025; 85610; 85730; 86850; 86900; 86901; 87070; 87075; 87077; 87186; 87205; 87426; 87449; 87633; 87640; 88305; 88312; 92526; 92610; 93005; 93306; 94640; 97110; 97162; 97166; 97530; 97535; 99251; 99285; 99406; J7030; J7040; J7050; J7120; Q9957; Q9967; A4216; C8929; G0463; J2405; J3490

== ENCOUNTER 2021-11-07 13:00 | Outpatient (RCR) | payer MEDICARE, MEDICAID, SELFPAY ==
[2021-10-23 00:27] VITALS: BP 153/68; PULSE 91; RESP 20; TEMP 36.1; BMI 48.5
[2021-10-24 13:32] VITALS: BP 136/68; PULSE 104; RESP 20; TEMP 37.1; BMI 48.5
--- NOTE | 2021-10-24 14:47 | PCM.WC.PN ---
History of Present Illness Date of Service: 10/24/21 Chief Complaint: Diabetic left foot ulceration, [place] Grade 3 right leg ulcer History of Wound: This 66-year-old male with multiple comorbidities was seen today for left foot ulcer that is very chronic. He was also seen for right leg ulcer. He denies diarrhea, fever, chill, nausea, vomiting. He denies redness or odor. He denies calf pain. He has debility and difficulty walking. He was trying to get approved for an electric wheelchair in which he was successful. However the parts are on back order and this is expected to arrive in Oct 2021. His lower extremity is edema is decreased this week. He admits that he was admitted to the hospital for hypoglycemia earlier this week and is doing better now that he is returned home. Progress of Wound: Stable left Improving right Objective Data Objective Data Vital Signs: Vital Signs Temp Pulse Resp BP 98.7 F 104 H 20 H 136/68 H 10/24/21 13:32 10/24/21 13:32 10/24/21 13:32 10/24/21 13:32 Weight: 147.418 kg Body Mass Index (BMI) 48.5 Physical Exam Extremity Extremity Narrative: No calf tenderness Diminished pulses Left transmetatarsal amputation Muscle wasting noted Skin Skin Narrative: no purulence, no streaking, no odor, no infection. Bilateral lower extremity skin is atrophic and hairless. skin discontinuity right central anterior leg with granular base. Callus and fissure plantar medial first metatarsal head without ulcer formation noted upon debridement, left. Left plantar foot ulcer has improvement in healthy granular base tissue without devitalized central location. No maceration, necrosis or infection. Right lower leg ulcer decreased size with granular base and no infection or necrosis Neuro Neuro Narrative: lack of normal epicritic sensation via light touch is consistent with neuropathy status Debridement Note Debridement Note Wound debrided: right leg, plantar left foot Wound Grade/Stage: 1,1 Type of Debridement: Excisional debridement Anesthesia Used: 4% Lidocaine Solution Depth: in the subcutaneous layer Percentage of wound debrided: 100 Instrument Used: #15 blade Tissue Removed: fibrous, devitalized subcutaneous, biofilm, slough Severity: Fat Layer Exposed Amount of bleeding with debridement: Mild Bleeding Controlled with: Pressure Patient tolerated procedure: Patient tolerated procedure well Post-Debridement Measurements and Additional Note: Post-Debridement Measurements/Treatment WC - Nurse 1 - General Ulcer Assessment Start: 10/24/21 13:32 Freq: Status: Active Protocol: [email or web address].NIC Activity Type Activity Date Activity User E-Sign Co-Sign Detail Recorded Client Recorded Date Recorded By Document 10/24/21 13:32 DL [id number] 10/24/21 13:38 DL 10/24/21 13:32 WC - Today's Visit Information Type of service Follow-up Visit (Physician/LOCATOR SPECIALIST ) Arrival Mode Ambulatory, Walker Transfer Assistance None Patient Identification Verified (Name & Yes ) Patient Requires Transmission-Based No Precautions Finger Stick Blood Sugar(mg/dl) (if 159 indicated): Blood Sugar Stated by Patient Height and Weight Body Mass Index (BMI) 48.5 BMI Classification Obese Vital Signs Temperature (97.8 F-99.1 F) 98.7 F Temperature Source Temporal Pulse Rate (60-100) 104 H Pulse Location Monitor Respiratory Rate (12-18) 20 H Respiratory rate source Observation Blood Pressure (90/60-120/80) 136/68 H Blood Pressure Mean (mm Hg) 90 Source Monitor History Since Last Visit- (Skip if this is Patient's initial visit) Have you changed medications since your No last visit? Any new allergies or adverse reactions No Had a fall/change in ADL's that may No increase risk of falls Signs or symptoms of abuse and/or No neglect since last visit Have you been in the hospital since your No last visit? Has dressing in place as prescribed Yes Has compression in place as prescribed N/A Has offloadiing in place as prescribed Yes Experienced any changes in pain level or No management Pain Scale: 0-10 Numeric Is Patient Pain Free? Yes - Nurse 1 - General Ulcer Measurement Start: 10/24/21 13:32 Freq: Status: Active Protocol: Activity Type Activity Date Activity User E-Sign Co-Sign Detail Recorded Client Recorded Date Recorded By Document 10/24/21 13:32 DL [id number] 10/24/21 13:38 DL 10/24/21 13:32 Wound Center Nurse 1 #20- R BRYANT -Current Size (cm) - Length 0.6 -Current Size (cm) - Width 1.1 -Current Size (cm) - Depth 0.1 -Total Square Cm 0.66 -Photo Taken No -Exudate Amt None Present -Wound Margin Thickened -Granulation Amt Large (67-100%) -Granulation Quality Red -Necrosis Amt Small (1-33%) -Necrotic Tissue Type Adherent Slough -Structure Exposed N/A -Texture (Maria M-wound Skin Appearance) Scarring -Moisture (Maria M-wound Skin Appearance) No Abnormality -Color (Maria M-wound Skin Appearance) Hemosiderin Staining -Temperature (Maria M-wound Skin No Abnormality Appearance) (Pt Warm) -Tenderness on Palpation (Maria M-wound No Skin Appearance) -Ulcer Cleansing Soap and Water -Foul Odor after Cleansing Yes, Due to Product Use -Anesthetic Used 4% Lidocaine Solution #13 LEFT MEDIAL PLANTAR -Current Size (cm) - Length 2.6 -Current Size (cm) - Width 2.6 -Current Size (cm) - Depth 0.7 -Total Square Cm 6.76 -Photo Taken No -Exudate Amt Medium -Exudate Type Serosanguineous -Wound Margin Thickened -Granulation Amt Medium (34-66%) -Granulation Quality Red -Necrosis Amt Medium (34-66%) -Necrotic Tissue Type Adherent Slough -Structure Exposed N/A -Texture (Maria M-wound Skin Appearance) Callus,Scarring -Moisture (Maria M-wound Skin Appearance) Dry/Scaly -Color (Maria M-wound Skin Appearance) Hemosiderin Staining -Temperature (Maria M-wound Skin No Abnormality Appearance) (Pt Warm) -Tenderness on Palpation (Maria M-wound No Skin Appearance) -Ulcer Cleansing Soap and Water -Foul Odor after Cleansing No -Anesthetic Used 4% Lidocaine Solution WC - Nurse 2 - General Ulcer CM Notes Start: 10/24/21 13:32 Freq: Status: Active Protocol: Activity Type Activity Date Activity User E-Sign Co-Sign Detail Recorded Client Recorded Date Recorded By Document 10/24/21 13:50 CASSY [id number] 10/24/21 13:56 CASSY 10/24/21 13:50 Wound Center Nurse 2 #20- R BRYANT -Time 13:51 -Correct Patient Yes -Correct Side, Site, Position Yes -Correct Procedure Yes -Procedure Performed Yes -Type of Procedure Incision & Drainage -Clinical Debridement Subcutaneous -Tissue Removed Subcutaneous -Post Debridement (cm) - Length 1.0 -Post Debridement (cm) - Width 0.8 -Post Debridement (cm) - Depth 0.1 -Total Square (Post) (cm) 0.80 -Area of Debridement (cm) - Length 1.0 -Area of Debridement (cm) - Width 0.8 -Total Square (Area) (cm) 0.80 -Tunneling No -Undermining/Tunneling No -Circular Undermining No -Wound/Ulcer Outcome Not Healed -Ulcer Cleansing Rinsed/ Irrigated with Saline -Foul Odor after Cleansing No -Bioengineered Tissue No -Bleeding Controlled with Pressure -Offloading No -Treatment Response Procedure Tolerated Well -Debridement - Subq, 1st 20sq cm No #13 LEFT MEDIAL PLANTAR -Time 13:51 -Correct Patient Yes -Correct Side, Site, Position Yes -Correct Procedure Yes -Procedure Performed Yes -Type of Procedure Debridement -Clinical Debridement Subcutaneous -Tissue Removed Subcutaneous -Post Debridement (cm) - Length 2.2 -Post Debridement (cm) - Width 2.4 -Post Debridement (cm) - Depth 0.2 -Total Square (Post) (cm) 5.28 -Area of Debridement (cm) - Length 2.2 -Area of Debridement (cm) - Width 2.4 -Total Square (Area) (cm) 5.28 -Tunneling No -Undermining/Tunneling No -Circular Undermining No -Wound/Ulcer Outcome Not Healed -Ulcer Cleansing Rinsed/ Irrigated with Saline -Foul Odor after Cleansing No -Bioengineered Tissue No -Bleeding Controlled with Pressure -Offloading Yes -Type of Offloading Surgical Shoe -Treatment Response Procedure Tolerated Well -Debridement - Subq, 1st 20sq cm Yes Pain Scale: 0-10 Numeric Is Patient Pain Free? Yes WC - Nurse 3 - General Ulcer D/C NN Start: 10/24/21 13:32 Freq: Status: Active Protocol: Activity Type Activity Date Activity User E-Sign Co-Sign Detail Recorded Client Recorded Date Recorded By Document 10/24/21 14:01 [facility] [id number] 10/24/21 14:02 [facility] 10/24/21 14:01 Wound Care Nurse 3 #20- R BRYANT -Ulcer Cleansing Rinsed/ Irrigated with Saline -Foul Odor after Cleansing No -Primary Dressing Applied NonAdherent Contact Layer, Other -Other Dressing HYDROGEL -Primary Dressing Covered/Secured with Dry Gauze & Roll Gauze, Secured with Tape -Other Covering DRSG PER [place] [employer] #13 LEFT MEDIAL PLANTAR -Ulcer Cleansing Rinsed/ Irrigated with Saline -Foul Odor after Cleansing No -Primary Dressing Applied Aquacel AG 4x4 -Primary Dressing Covered/Secured with Dry Gauze & Roll Gauze, Secured with Tape,Other -Other Covering ABD; DRSG PER [place] [employer] -Aquacel AG 4x4 1 BLE -Tubular Bandage Single Layer -Size of Tubigrip Used Size E -Size E ($) 2 Treatment Response Procedure Tolerated Well Pain Scale: 0-10 Numeric Is Patient Pain Free? 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: CODE(S): L97.912 - Non-pressure chronic ulcer of unspecified part of right lower leg with fat layer exposed (2) Non-pressure chronic ulcer of other part of left foot with fat layer exposed: CODE(S): L97.522 - Non-pressure chronic ulcer of other part of left foot with fat layer exposed (3) Type 2 diabetes mellitus with diabetic polyneuropathy: CODE(S): E11.42 - Type 2 diabetes mellitus with diabetic polyneuropathy QUALIFIERS: Diabetes mellitus snf insulin use: without snf use Qualified Code(s): E11.42 - Type 2 diabetes mellitus with diabetic polyneuropathy (4) Debility: CODE(S): R53.81 - Other malaise (5) Localized edema: CODE(S): R60.0 - Localized edema (6) Corns and callosities: CODE(S): L84 - Corns and callosities (7) Fissure in skin of foot: CODE(S): R23.4 - Changes in skin texture PLAN: I reviewed and discussed his case. Subcutaneous excisional debridement was performed as noted in the clinical panel to the left foot and right leg. Edema noted and has been addressed. To elevate and reduce salt intake. To continue with Tubigrip compression garments. Okay to apply additional Angus wrap during exacerbation. To change left foot ulcer daily with hydrogel and gauze. To change right leg ulcer with hydrogel and Adaptic if needed. It is noted he had prior advanced wound healing product application and total contact cast applications. His callus sites to right subfirst metatarsal head and left periulcer were debrided with 15 blade. He was advised to apply moisturizing cream; diabetic [place]. Home health has been helping him with lotion application on intermittent basis. I recommend routine assistance and he can also apply it on his own with an assistive device such as a tongue depressor or even a toothbrush to help him reach. I would like him to wash this daily with soap and water the left foot. He is reassured no local signs of infection are noted however these are precautions to prevent further devitalization or bacterial colonization. He has a surgical offloading shoe at home. To offload left foot ulcer with Cam walker offloading Plastizote liner. The offloading pocket appears appropriately aligned to take pressure off of the ulcer site now. To use a walker until his wheelchair arrives. I discussed the need for serious offloading for limb salvage purposes. He has tried various shoes and walking boots. He has struggled with the use of such as a walker of a knee roller and has impaired gait. An electric power wheelchair (extra width-heavy duty) is also an option and at this time I recommend this. Per the patient, this was recently approved he was advised to proceed forward with getting the device to ensure he is able to offload. Anticipated arrival time is four weeks. He also recently installed a ramp at his home to accommodate home entry. His noninvasive vascular studies were reviewed from 05-04-2020 which were normal and intervention was previously not recommended. Urine he had bilateral arterial duplex and was advised to follow-up 1 year for updated exam. I reviewed Dr. Bonilla's note from June 14, 2020. To continue to work on decreasing glucose levels. He has a history of hyperglycemia. His last A1c was 8.8% in October 2020. To continue follow-up with primary care physician. To continue to follow-up with nutritional services. To continue to follow-up as advised. It is noted he is eating a limited amount of whole foods; I recommend starting with at least 5-10 each day. Some examples were provided. He is currently making adjustments with his nutritional habits. He also follows up with bradder, Dr. Arteaga, who is working with him to reduce his hemoglobin A1c with medication and behavioral changes. He started a new medication recently to better control his glucose levels he reports his home glucose levels have been decreasing. Smoking cessation was discussed in detail and he was advised on the healing impairment associated with this. To continue with his smoking cessation program. He denies current tobacco use. I also recommend discontinuation of nicotine products for this also contributes to small vessel contraction. The following options exist: Proceeding with a palliative wound care plan which he follows up every 2 to 4 weeks and the goal is to keep the ulcers noninfected and stable, below-knee amputation, revision transmetatarsal amputation with rotational skin flap. Prognosis is guarded with ongoing glucose elevation and inability to comply with nonweightbearing standards. He is hopeful that wheelchair with aid offloading goals. I answered all of his questions today. To return to clinic in 2 weeks with physician, or call sooner if questions, concerns, or progressive worsening. Note: [employer] speech recognition veterinary virus serum inspector software was used to create portions of this document. Sound-alike and misspelled words, as well as other veterinary virus serum inspector errors may be contained in the documentation.
[2021-11-07 13:13] VITALS: BP 138/59; PULSE 84; RESP 20; TEMP 36.4; BMI 48.5
--- NOTE | 2021-11-07 16:16 | PN.PCM_ITS ---
History of Present Illness Date of Service: 11/07/21 Chief Complaint: Diabetic left foot ulceration, [place] Grade 3 right leg ulcer History of Wound: This 66-year-old male with multiple comorbidities was seen today for left foot ulcer that is very chronic. He was also seen for right leg ulcer. He denies diarrhea, fever, chill, nausea, vomiting. He denies redness or odor. He denies calf pain. He has debility and difficulty walking. He was trying to get approved for an electric wheelchair in which he was successful. However the parts are on back order and this is expected to arrive in Oct 2021. His lower extremity is edema is decreased this week. He admits that he was admitted to the hospital for a recent upper GI bleed and was recently released home. He is very fatigued. Progress of Wound: Stable left Improving right Objective Data Objective Data Vital Signs: Vital Signs Temp Pulse Resp BP 97.6 F L 84 20 H 138/59 H 11/07/21 13:13 11/07/21 13:13 11/07/21 13:13 11/07/21 13:13 Oxygen Delivery Method Room Air Weight: 147.418 kg Body Mass Index (BMI) 48.5 Physical Exam Extremity Extremity Narrative: No calf tenderness Diminished pulses Left transmetatarsal amputation Muscle wasting noted Skin Skin Narrative: no purulence, no streaking, no odor, no infection. Bilateral lower extremity skin is atrophic and hairless. skin discontinuity right central anterior leg with granular base. Callus and fissure plantar medial first metatarsal head without ulcer formation noted upon debridement, left. Left plantar foot ulcer has improvement in healthy granular base tissue without devitalized central location. No maceration, necrosis or infection. Right lower leg ulcer decreased size with granular base and no infection or necrosis Neuro Neuro Narrative: lack of normal epicritic sensation via light touch is consistent with neuropathy status Debridement Note Debridement Note Wound debrided: right leg, left plantar foot Wound Grade/Stage: 1,1 Type of Debridement: Excisional debridement Anesthesia Used: 4% Lidocaine Solution Depth: in the subcutaneous layer Percentage of wound debrided: 100 Instrument Used: #15 blade Tissue Removed: fibrous, devitalized subcutaneous, biofilm, slough Severity: Fat Layer Exposed Amount of bleeding with debridement: Mild Bleeding Controlled with: Pressure Patient tolerated procedure: Patient tolerated procedure well Post-Debridement Measurements and Additional Note: Post-Debridement Measurements/Treatment WC - Nurse 1 - General Ulcer Assessment Start: 10/24/21 13:32 Freq: Status: Active Protocol: MARIA ESTHER Activity Type Activity Date Activity User E-Sign Co-Sign Detail Recorded Client Recorded Date Recorded By Document 10/24/21 13:32 DL [id number] 10/24/21 13:38 DL Document 11/07/21 13:13 BMF [id number] 11/07/21 13:22 BMF 10/24/21 11/07/21 13:32 13:13 WC - Today's Visit Information Type of service Follow-up Visit Follow-up Visit (Physician/BIOPROCESSING MANUFACTURING TECHNICIAN (Physician/BIOPROCESSING MANUFACTURING TECHNICIAN ) ) Arrival Mode Ambulatory, Ambulatory, Walker Walker Transfer Assistance None None Patient Identification Verified (Name & Yes Yes ) Patient Requires Transmission-Based No Precautions Finger Stick Blood Sugar(mg/dl) (if 159 189 indicated): Blood Sugar Stated by Stated by Patient Patient Height and Weight Body Mass Index (BMI) 48.5 48.5 BMI Classification Obese Obese Vital Signs Temperature (97.8 F-99.1 F) 98.7 F 97.6 F L Temperature Source Temporal Temporal Pulse Rate (60-100) 104 H 84 Pulse Location Monitor Monitor Respiratory Rate (12-18) 20 H 20 H Respiratory rate source Observation Observation Oxygen Delivery Method Room Air Blood Pressure (90/60-120/80) 136/68 H 138/59 H Blood Pressure Mean (mm Hg) 90 85 Source Monitor Manual Position Sitting Blood Pressure Location Left Arm History Since Last Visit- (Skip if this is Patient's initial visit) Have you changed medications since your No No last visit? Any new allergies or adverse reactions No No Had a fall/change in ADL's that may No No increase risk of falls Signs or symptoms of abuse and/or No No neglect since last visit Have you been in the hospital since your No Yes last visit? Has dressing in place as prescribed Yes No Has compression in place as prescribed N/A No Has offloadiing in place as prescribed Yes N/A Experienced any changes in pain level or No No management Left Footwear Regular Shoe Right Footwear Regular Shoe Pain Scale: 0-10 Numeric Is Patient Pain Free? Yes Yes - Nurse 1 - General Ulcer Measurement Start: 10/24/21 13:32 Freq: Status: Active Protocol: Activity Type Activity Date Activity User E-Sign Co-Sign Detail Recorded Client Recorded Date Recorded By Document 10/24/21 13:32 DL [id number] 10/24/21 13:38 DL Document 11/07/21 13:13 BM [id number] 11/07/21 13:22 BMF 10/24/21 11/07/21 13:32 13:13 Wound Center Nurse 1 #20- R BRYANT -Combined with other wound No -Current Size (cm) - Length 0.6 0.1 -Current Size (cm) - Width 1.1 0.1 -Current Size (cm) - Depth 0.1 0.1 -Total Square Cm 0.66 0.01 -Photo Taken No -Epithelialization Large 67-100% -Tunneling No -Undermining/Tunneling No -Circular Undermining No -Exudate Amt None Present None Present -Wound Margin Thickened -Granulation Amt Large (67-100%) -Granulation Quality Red -Necrosis Amt Small (1-33%) -Necrotic Tissue Type Adherent Slough -Structure Exposed N/A -Texture (Maria M-wound Skin Appearance) Scarring Assessed, Scarring -Moisture (Maria M-wound Skin Appearance) No Abnormality Assessed,Dry/ Scaly -Color (Maria M-wound Skin Appearance) Hemosiderin Assessed Staining -Temperature (Maria M-wound Skin No Abnormality No Abnormality Appearance) (Pt Warm) (Pt Warm) -Tenderness on Palpation (Maria M-wound No No Skin Appearance) -Ulcer Cleansing Soap and Water Soap and Water -Foul Odor after Cleansing Yes, Due to Yes, Due to Product Use Product Use -Anesthetic Used 4% Lidocaine 4% Lidocaine Solution Solution #13 LEFT MEDIAL PLANTAR -Combined with other wound No -Current Size (cm) - Length 2.6 2 -Current Size (cm) - Width 2.6 2.2 -Current Size (cm) - Depth 0.7 0.3 -Total Square Cm 6.76 4.4 -Photo Taken No No -Epithelialization Small 1-33% -Tunneling No -Undermining/Tunneling No -Circular Undermining No -Exudate Amt Medium Medium -Exudate Type Serosanguineous Serosanguineous -Wound Margin Thickened Distinct, Outline Attached -Granulation Amt Medium (34-66%) Large (67-100%) -Granulation Quality Red Pale,Red -Slough/Fibrin Yes -Necrosis Amt Medium (34-66%) Small (1-33%) -Necrotic Tissue Type Adherent Slough Adherent Slough -Structure Exposed N/A -Texture (Maria M-wound Skin Appearance) Callus,Scarring Assessed,Callus ,Scarring -Moisture (Maria M-wound Skin Appearance) Dry/Scaly Assessed,Dry/ Scaly -Color (Maria M-wound Skin Appearance) Hemosiderin Assessed Staining -Temperature (Maria M-wound Skin No Abnormality No Abnormality Appearance) (Pt Warm) (Pt Warm) -Tenderness on Palpation (Maria M-wound No No Skin Appearance) -Ulcer Cleansing Soap and Water Soap and Water -Foul Odor after Cleansing No No -Anesthetic Used 4% Lidocaine 4% Lidocaine Solution Solution Lower Limb Edema Present Yes Right Calf (cm) 42.4 Right Ankle (cm) 24.6 Left Calf (cm) 43.2 Left Ankle (cm) 26.8 WC - Nurse 2 - General Ulcer CM Notes Start: 10/24/21 13:32 Freq: Status: Active Protocol: Activity Type Activity Date Activity User E-Sign Co-Sign Detail Recorded Client Recorded Date Recorded By Document 10/24/21 13:50 [id number] 10/24/21 13:56 Document 11/07/21 13:33 [id number] 11/07/21 13:37 10/24/21 11/07/21 13:50 13:33 Wound Center Nurse 2 #20- R BRYANT -Time 13:51 13:34 -Correct Patient Yes Yes -Correct Side, Site, Position Yes Yes -Correct Procedure Yes Yes -Procedure Performed Yes Yes -Type of Procedure Incision & Debridement Drainage -Clinical Debridement Subcutaneous Subcutaneous -Tissue Removed Subcutaneous Subcutaneous -Post Debridement (cm) - Length 1.0 0.1 -Post Debridement (cm) - Width 0.8 0.1 -Post Debridement (cm) - Depth 0.1 0.1 -Total Square (Post) (cm) 0.80 0.01 -Area of Debridement (cm) - Length 1.0 0.1 -Area of Debridement (cm) - Width 0.8 0.1 -Total Square (Area) (cm) 0.80 0.01 -Tunneling No No -Undermining/Tunneling No No -Circular Undermining No No -Wound/Ulcer Outcome Not Healed Not Healed -Ulcer Cleansing Rinsed/ Rinsed/ Irrigated with Irrigated with Saline Saline -Foul Odor after Cleansing No No -Bioengineered Tissue No No -Bleeding Controlled with Pressure Pressure -Offloading No No -Treatment Response Procedure Procedure Tolerated Well Tolerated Well -Debridement - Subq, 1st 20sq cm No No #13 LEFT MEDIAL PLANTAR -Time 13:51 13:34 -Correct Patient Yes Yes -Correct Side, Site, Position Yes Yes -Correct Procedure Yes Yes -Procedure Performed Yes Yes -Type of Procedure Debridement Debridement -Clinical Debridement Subcutaneous Subcutaneous -Tissue Removed Subcutaneous Subcutaneous -Post Debridement (cm) - Length 2.2 2.2 -Post Debridement (cm) - Width 2.4 2.4 -Post Debridement (cm) - Depth 0.2 0.3 -Total Square (Post) (cm) 5.28 5.28 -Area of Debridement (cm) - Length 2.2 2.2 -Area of Debridement (cm) - Width 2.4 2.4 -Total Square (Area) (cm) 5.28 5.28 -Tunneling No No -Undermining/Tunneling No No -Circular Undermining No No -Wound/Ulcer Outcome Not Healed Not Healed -Ulcer Cleansing Rinsed/ Rinsed/ Irrigated with Irrigated with Saline Saline -Foul Odor after Cleansing No No -Bioengineered Tissue No No -Bleeding Controlled with Pressure Pressure -Offloading Yes Yes -Type of Offloading Surgical Shoe Surgical Shoe -Treatment Response Procedure Procedure Tolerated Well Tolerated Well -Debridement - Subq, 1st 20sq cm Yes Yes Pain Scale: 0-10 Numeric Is Patient Pain Free? Yes Yes - Nurse 3 - General Ulcer D/C NN Start: 10/24/21 13:32 Freq: Status: Active Protocol: Activity Type Activity Date Activity User E-Sign Co-Sign Detail Recorded Client Recorded Date Recorded By Document 10/24/21 14:01 [facility] [id number] 10/24/21 14:02 [facility] Document 11/07/21 13:56 RB [id number] 11/07/21 13:58 RB 10/24/21 11/07/21 14:01 13:56 Wound Care Nurse 3 #20- R BRYANT -Ulcer Cleansing Rinsed/ Rinsed/ Irrigated with Irrigated with Saline Saline -Foul Odor after Cleansing No -Primary Dressing Applied NonAdherent C Hydrogel ($), Contact Layer, NonAdherent Other Contact Layer -Other Dressing HYDROGEL -Primary Dressing Covered/Secured with Dry Gauze & Dry Gauze, Roll Gauze, Secured with Secured with Tape Tape -Other Covering DRSG PER [place] MACHINE BOBBIN WINDER #13 LEFT MEDIAL PLANTAR -Ulcer Cleansing Rinsed/ Rinsed/ Irrigated with Irrigated with Saline Saline -Foul Odor after Cleansing No -Primary Dressing Applied Aquacel AG 4x4 Aquacel AG 4x4 -Primary Dressing Covered/Secured with Dry Gauze & Dry Gauze,Dry Roll Gauze, Gauze & Roll Secured with Gauze,Secured Tape,Other with Tape -Other Covering ABD; DRSG PER [place] MACHINE BOBBIN WINDER -Aquacel AG 4x4 1 1 BLE -Tubular Bandage Single Layer Single Layer -Size of Tubigrip Used Size E Size E -Size E ($) 2 2 Treatment Response Procedure Procedure Tolerated Well Tolerated Well Pain Scale: 0-10 Numeric Is Patient Pain Free? 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: CODE(S): L97.912 - Non-pressure chronic ulcer of unspecified part of right lower leg with fat layer exposed (2) Non-pressure chronic ulcer of other part of left foot with fat layer exposed: CODE(S): L97.522 - Non-pressure chronic ulcer of other part of left foot with fat layer exposed (3) Type 2 diabetes mellitus with diabetic polyneuropathy: CODE(S): E11.42 - Type 2 diabetes mellitus with diabetic polyneuropathy QUALIFIERS: Diabetes mellitus alf insulin use: without alf use Qualified Code(s): E11.42 - Type 2 diabetes mellitus with diabetic polyneuropathy (4) Debility: CODE(S): R53.81 - Other malaise (5) Localized edema: CODE(S): R60.0 - Localized edema (6) Corns and callosities: CODE(S): L84 - Corns and callosities (7) Fissure in skin of foot: CODE(S): R23.4 - Changes in skin texture PLAN: I reviewed and discussed his case. Subcutaneous excisional debridement was performed as noted in the clinical panel to the left foot and right leg. Edema noted and has been addressed. To elevate and reduce salt intake. To continue with Tubigrip compression garments. Okay to apply additional Angus wrap during exacerbation. To change left foot ulcer daily with hydrogel and gauze. To change right leg ulcer with hydrogel and Adaptic if needed. It is noted he had prior advanced wound healing product application and total contact cast applications. His callus sites to right subfirst metatarsal head and left periulcer were debrided with 15 blade. He was advised to apply moisturizing cream; diabetic [place]. Home health has been helping him with lotion application on intermittent basis. I recommend routine assistance and he can also apply it on his own with an assistive device such as a tongue depressor or even a toothbrush to help him reach. I would like him to wash this daily with soap and water the left foot. He is reassured no local signs of infection are noted however these are precautions to prevent further devitalization or bacterial colonization. He has a surgical offloading shoe at home. To offload left foot ulcer with Cam walker offloading Plastizote liner. The offloading pocket appears appropriately aligned to take pressure off of the ulcer site now. To use a walker until his wheelchair arrives. I discussed the need for serious offloading for limb salvage purposes. He has tried various shoes and walking boots. He has struggled with the use of such as a walker of a knee roller and has impaired gait. An electric power wheelchair (extra width-heavy duty) is also an option and at this time I recommend this. Per the patient, this was recently approved he was advised to proceed forward with getting the device to ensure he is able to offload. Anticipated arrival time is four weeks. He also recently installed a ramp at his home to accommodate home entry. His noninvasive vascular studies were reviewed from 05-04-2020 which were normal and intervention was previously not recommended. Urine he had bilateral arterial duplex and was advised to follow-up 1 year for updated exam. I reviewed Dr. Bonilla's note from June 14, 2020. To continue to work on decreasing glucose levels. He has a history of hyperglycemia. His last A1c was 8.8% in October 2020. To continue follow-up with primary care physician. To continue to follow-up with nutritional services. To continue to follow-up as advised. It is noted he is eating a limited amount of whole foods; I recommend starting with at least 5-10 each day. Some examples were provided. He is currently making adjustments with his nutritional habits. He also follows up with arson and bomb investigator, Dr. Arteaga, who is working with him to reduce his hemoglobin A1c with medication and behavioral changes. He started a new medication recently to better control his glucose levels he reports his home glucose levels have been decreasing. Smoking cessation was discussed in detail and he was advised on the healing impairment associated with this. To continue with his smoking cessation program. He denies current tobacco use. I also recommend discontinuation of nicotine products for this also contributes to small vessel contraction. He elects to continue. The following options exist: Proceeding with a palliative wound care plan which he follows up every 2 to 4 weeks and the goal is to keep the ulcers noninfected and stable, below-knee amputation, revision transmetatarsal amputation with rotational skin flap. Prognosis is guarded with ongoing glucose elevation and inability to comply with nonweightbearing standards. He is hopeful that wheelcha ir with aid offloading goals. I answered all of his questions today. To return to clinic in 2 weeks with physician, or call sooner if questions, concerns, or progressive worsening. Note: [employer] speech recognition call center specialist software was used to create portions of this document. Sound-alike and misspelled words, as well as other call center specialist errors may be contained in the documentation.
== END 2021-11-19 23:59 | disposition home or self-care (01) ==
LOC: WC 13:00
PROVIDERS: PCP Family Medicine Geriatric Medicine; Referring Provider Podiatrist; Visit Provider Podiatrist
DX: E11.621 Type 2 diabetes mellitus with foot ulcer (principal); L97.522 Non-pressure chronic ulcer of other part of left foot with fat layer exposed; L97.912 Non-pressure chronic ulcer of unspecified part of right lower leg with fat layer exposed; E11.42 Type 2 diabetes mellitus with diabetic polyneuropathy; R53.81 Other malaise; R26.2 Difficulty in walking, not elsewhere classified; R60.0 Localized edema; L84 Corns and callosities; R23.4 Changes in skin texture; I10 Essential (primary) hypertension; F52.8 Other sexual dysfunction not due to a substance or known physiological condition
CPT/HCPCS: 11042; 36415; 80053; 84403; 84443; 85025

== ENCOUNTER 2021-11-07 16:35 | Emergency (ER) | payer MEDICARE, MEDICAID, SELFPAY ==
[2021-11-07 16:40] VITALS: BP 140/68; PULSE 58; RESP 14; TEMP 35.6; O2SAT 97; BMI 38.0
--- NOTE | 2021-11-07 16:58 | ED.RN ---
250mL D10 GIVEN IN ROOM.
[2021-11-07 16:59] VITALS: PULSE 62; RESP 14; O2SAT 93
--- NOTE | 2021-11-07 17:09 | EX.ED.DYSGE1 ---
HPI History of Present Illness Chief Complaint: Hypoglycemia Narrative Narrative: 66-year-old male with history of diabetes presenting with an episode of hypoglycemia. His son states that he dropped him off earlier today to see Dr. Claudio and have his chronic wounds dressed and cleaned. After this he did pick him up and brought him to his appointment with Dr. Meyer. The patient states that he asked to volunteer to get him a wheelchair to help wheel him to the office visit. He states that the volunteer asked him to have a seat. His son states that about 2 and half hours later he came in to see where his father was because his visit would have ended an hour ago and he was confused sitting in a chair drooling. At this point the nursing staff did assist him and found out he was hypoglycemic. He was given some glucose and sent to the emergency room. He is currently alert and oriented. His son states he is near his baseline. He does not have any complaints. He does state that he has not had anything to eat since breakfast and he is embarrassed that he forgot to eat and had a hypoglycemic episode [facility] Medical History BPH (benign prostatic hyperplasia) CPAP (continuous positive airway pressure) dependence Erectile dysfunction HTN (hypertension) Hyperlipidemia Hyperlipidemia Hypertension Hypokalemia Neuropathic pain Obesity Sleep apnea Smoker Tobacco abuse Type 2 diabetes mellitus Type 2 diabetes mellitus with diabetic polyneuropathy Home Medications calcium carbonate 500 mg PO DAILY 06/23/17 [History Last Taken 06/23/17] multivitamin 1 ea PO DAILY 06/23/17 [History Last Taken 06/23/17] atorvastatin 40 mg tablet 40 mg PO DAILY 10/18/19 [History Last Taken 08/31/20 22:39] bupropion HCl 150 mg 24 hr tablet, extended release 150 mg PO BID tab 10/18/19 [History Last Taken 09/01/20 08:27] tamsulosin 0.4 mg capsule 0.4 mg PO DAILY@1730 cap 10/18/19 [History Last Taken 08/31/20 17:28] gabapentin 300 mg capsule 600 mg PO TIDCM cap 04/24/20 [History Last Taken 09/01/20 13:15] aspirin 81 mg tablet,delayed release 81 mg PO DAILY tab 07/28/20 [History Last Taken Unknown] lancets 09/01/20 [History Last Taken Unknown] acetaminophen 1,000 mg PO Q6H PRN tab 10/03/20 [Rx Last Taken Unknown] naproxen 500 mg tablet 500 mg PO BID PRN 10/31/20 [History Last Taken Unknown] blood-glucose transmitter #1 ea 11/30/20 [Rx Last Taken Unknown] dulaglutide 0.75 mg/0.5 mL subcutaneous pen injector 0.75 mg SUBCUT QWEEK #2 ml 07/26/21 [Rx Last Taken Unknown] blood sugar diagnostic #100 ea 08/06/21 [Rx Last Taken Unknown] lisinopril 40 mg tablet 40 mg PO DAILY #90 tab 08/06/21 [Rx Last Taken Unknown] flash glucose sensor #2 ea 08/23/21 [Rx Last Taken Unknown] Farxiga 10 mg tablet 10 mg PO DAILY #90 tab NS 09/03/21 [Rx Last Taken Unknown] Humulin R U-500 (Conc) Kwikpen 500 unit/mL (3 mL) subcutaneous 110 unit SUBCUT TID #27 ml NS 10/22/21 [Rx Last Taken Unknown] clindamycin HCl 300 mg PO TID #15 cap 11/05/21 [Rx Last Taken Unknown] fluconazole 200 mg PO DAILY 10 Days #20 tab 11/05/21 [Rx Last Taken Unknown] levofloxacin 750 mg PO DAILY #5 tab 11/05/21 [Rx Last Taken Unknown] pantoprazole 40 mg PO BID #60 tab 11/05/21 [Rx Last Taken Unknown] Allergy/AdvReac Type Severity Reaction Status Date / Time Sulfa (Sulfonamide Allergy Rash Verified 11/07/21 16:40 Antibiotics) Family History Father Myocardial infarction Heart disease Mother Kidney disease Diabetes Sister Asthma Breast cancer Hypertension Brother Alcoholism Melanoma Surgical History History of ankle surgery History of deviated nasal septum History of hernia repair History of oral surgery History of transmetatarsal amputation of left foot History of vasectomy Social History household members: none Smoking Status: Current every day smoker tobacco type: cigarettes alcohol intake: never substance use type: does not use what type of physical activity do you participate in: none ROS ROS ED Constitutional Constitutional ED: Denies chills, fever(s) or sweats Eyes Eyes: Denies blurry vision or change in vision ENT ENT ED: Denies ear pain or sore throat Cardiovascular Cardiovascular: Denies chest pain, palpitations or racing heartbeat Respiratory/Chest Respiratory/Chest: Denies cough, dyspnea or sputum Gastrointestinal Gastrointestinal: Denies abdominal pain, constipation, diarrhea, nausea or vomiting Genitourinary Genitourinary ED: Denies dysuria, hematuria or urinary frequency Musculoskeletal Musculoskeletal: Denies arthralgias, myalgias or neck pain Integumentary Denies abscess, Abrasions or rash Neurologic Neurologic: Denies headache(s), paresthesias or weakness Psychiatric Psychiatric: Denies anxiety, depression, suicidal ideation or suicidal thoughts Endocrine Endocrinology: Denies polydipsia or polyuria EXAM Physical Exam Const Vital Signs: 11/07/21 16:40 11/07/21 16:57 11/07/21 16:59 Temperature 96.1 F L Temperature Source Temporal Pulse Rate 58 L 62 Respiratory Rate 14 14 Respiratory Effort Normal Non-Labored Respiratory Pattern Normal Blood Pressure 140/68 H Blood Pressure Mean 92 Pulse Ox 97 93 Oxygen Delivery Method Room Air Room Air 11/07/21 18:03 11/07/21 19:17 11/07/21 20:15 Temperature Temperature Source Pulse Rate 59 L 62 Respiratory Rate 20 H Respiratory Effort Respiratory Pattern Blood Pressure 118/90 H 140/87 H 111/55 L Blood Pressure Mean 99 104 Pulse Ox 94 Oxygen Delivery Method Room Air Positive obese, alert, oriented x3 and no apparent distress Nutritional Appearance: obese HEENT normocephalic Eyes PERRL and EOMs intact bilaterally Neck full ROM General: normal visual inspection and trachea midline Chest Wall inspection of chest normal and palpation of chest normal Resp Effort and Inspection: able to speak in complete sentences and symmetric chest movement; Negative for respiratory distress Cardio regular rate and regular rhythm Neuro oriented x3, CN's II-XII intact bilaterally, moves all extremities, no focal motor deficits and no sensory deficits noted Motor Exam: strength 5/5 throughout MDM MDM MDM Narrative Medical decision making narrative: Patiently currently feeling improved. He is eating cookies and peanut butter with crackers to get his blood sugar up. His blood sugar was initially 20 when he was evaluated. Is up to 75 now. He feels normal. His son states he is almost at his baseline. Will obtain basic lab work and recheck his blood sugar and monitor him. Patient has a slight leukocytosis which is actually trending downward from previous. Hemoglobin hematocrit are stable. Renal function electrolytes are normal. Glucose is 22 on his BMP but patient had already been eating since then and received glucose. His initial POC glucose was 75 in the ER. He is now up to 117 and he and his son believe he is at baseline. Given this the normal work-up I feel the patient can be discharged home in stable condition. Patient given return precautions. Impression: 1. Hypoglycemia 2. Altered mental status resolved Lab Data Attestation: I reviewed the patient's lab results. Labs: Laboratory Results - last 24 hr 11/07/21 11/07/21 11/07/21 16:45 16:45 17:31 WBC 12.9 H RBC 5.66 Hgb 15.5 Hct 48.9 MCV 86.4 MCH 27.4 MCHC 31.7 L RDW Std Deviation 50.9 H RDW Coeff of Fatuma 16.1 H Plt Count 288 MPV 10.3 Immature Gran % (Auto) 2.400 H Neut % (Auto) 73.2 H Lymph % (Auto) 13.8 L [place] % (Auto) 7.6 Eos % (Auto) 1.9 Baso % (Auto) 1.1 H Absolute Neuts (auto) 9.5 H Absolute Lymphs (auto) 1.78 Nucleated RBC % 0 Sodium 140 Potassium 3.6 Chloride 109 H Carbon Dioxide 26.0 Anion Gap 5 BUN 15 Creatinine 0.94 Estim Creat Clear Calc 75.80 Est GFR (MDRD) Af Amer 104 Est GFR (MDRD) Non-Af 86 BUN/Creatinine Ratio 16.0 Glucose 22 L* Calcium 9.2 POC Glucose 75 11/07/21 18:38 WBC RBC Hgb Hct MCV MCH MCHC RDW Std Deviation RDW Coeff of Fatuma Plt Count MPV Immature Gran % (Auto) Neut % (Auto) Lymph % (Auto) [place] % (Auto) Eos % (Auto) Baso % (Auto) Absolute Neuts (auto) Absolute Lymphs (auto) Nucleated RBC % Sodium Potassium Chloride Carbon Dioxide Anion Gap BUN Creatinine Estim Creat Clear Calc Est GFR (MDRD) Af Amer Est GFR (MDRD) Non-Af BUN/Creatinine Ratio Glucose Calcium POC Glucose 117 H Discharge Plan Triage Chief Complaint: Hypoglycemia Other Complaint: Alt LOC ED Provider: Sorin Mcdaniel Dx/Rx/DC Orders Instructions: Hypoglycemia (Low Blood Sugar) Prescriptions: No Action tamsulosin 0.4 mg capsule 0.4 mg PO DAILY@1730 RF: 0 atorvastatin 40 mg tablet 40 mg PO DAILY RF: 0 bupropion HCl 150 mg tablet extended release 24 hr 150 mg PO BID RF: 0 aspirin [Adult Low Dose Aspirin] 81 mg tablet,delayed release (DR/EC) 81 mg PO DAILY RF: 0 naproxen 500 mg tablet 500 mg PO BID PRN (Reason: Pain) RF: 0 Trulicity 0.75 mg/0.5 mL pen injector 0.75 mg subcut QWEEK Qty: 2 RF: 3 multivitamin 1 EACH tablet 1 ea PO DAILY RF: 0 calcium carbonate 500 MG tablet 500 mg PO DAILY RF: 0 gabapentin 300 mg capsule 600 mg PO TIDCM RF: 0 (DME) lancets 1 EACH misc See Rx Instructions .Route .MEDSUPPLY RF: 0 acetaminophen 500 MG tablet 1,000 mg PO Q6H PRN (Reason: Pain Score 1-5) RF: 0 levofloxacin 750 mg tablet 750 mg PO DAILY Qty: 5 RF: 0 fluconazole 100 mg Tablet 200 mg PO DAILY 10 Days Qty: 20 RF: 0 clindamycin HCl 300 mg capsule 300 mg PO TID Qty: 15 RF: 0 pantoprazole 40 mg tablet,delayed release (DR/EC) 40 mg PO BID Qty: 60 RF: 0 (DME) Resource [employer] G6 Transmitter Device See Rx Instructions .ROUTE .MEDSUPPLY Qty: 1 RF: 1 (DME) OneTouch Verio test strips Strip See Rx Instructions .ROUTE .MEDSUPPLY Qty: 100 RF: 8 lisinopril 40 mg tablet 40 mg PO DAILY Qty: 90 RF: 1 (DME) FreeStyle Heather 2 Sensor Kit See Rx Instructions .ROUTE .MEDSUPPLY Qty: 2 RF: 6 Farxiga 10 mg tablet 10 mg PO DAILY Qty: 90 RF: 1 Humulin R U-500 (Conc) Kwikpen 500 unit/mL (3 mL) insulin pen 110 unit subcut TID Qty: 27 RF: 5 Primary Care Provider: Jaime Meyer Chi Referrals: Jaime Meyer Chi, MD [Primary Care Provider] - Disposition Disposition: Home, Self Care Discharge Date/Time: 11/07/21 20:26
[2021-11-07 17:28] LABS: Absolute Lymphocyte Count 1.78 X10^3/uL (0.83-4.51); Absolute Neutrophil Count 9.5 X10^3/uL (2.0-7.7); Basophil# 0.14 X10^3/uL; Basophil% 1.1 % (0-1); Eosinophil# 0.24 X10^3/uL; Eosinophils% 1.9 % (0-5); Hematocrit 48.9 % (40-54); Hemoglobin 15.5 g/dL (13.0-16.5); Lymphocyte # 1.78 X10^3/ul (0.83-4.51); Lymphocyte % 13.8 % (19-41); Mean Corp Hgb Conc 31.7 g/dL (32-36); Mean Corpuscular Hgb 27.4 pg (27.0-32.0); Mean Corpuscular Volume 86.4 fL (80-94); Mean Platelet Vol. 10.3 fl (6.2-12.0); Monocyte# 0.98 X10^3/uL; Monocyte% 7.6 % (0-10); NRBC Flagged by Analyzer 0 % (0-5); Neutrophil # 9.46 X10^3/uL (2.7-7.7); Neutrophil % 73.2 % (47-70); Platelet Count 288 K/mm3 (150-450); RBC Distribution Width CV 16.1 % (11.6-14.6); RBC Distribution Width SD 50.9 fl (35.1-43.9); Red Blood Count 5.66 M/mm3 (4.6-6.2); White Blood Count 12.9 K/mm3 (4.4-11.0)
--- NOTE | 2021-11-07 17:31 | ED.RN ---
BLOOD GLUCOSE 75 AT THIS TIME
[2021-11-07 17:36] LABS: Bedside Glucose 75 mg/dL (70-110)
[2021-11-07 17:50] LABS: Anion Gap 5 (5-15); BUN 15 mg/dL (7-18); Calcium,Total 9.2 mg/dL (8.5-10.1); Chloride 109 mmol/L (98-107); Creatinine, Serum 0.94 mg/dL (0.70-1.30); EST Glomerular Filtration Rate 86 mL/min (>60); Est Glom Filt Rate - Afr Amer 104 mL/min (>60); Glucose 22 mg/dL (74-106); Potassium 3.6 mmol/L (3.5-5.1); Sodium Level 140 mmol/L (136-145)
[2021-11-07 18:03] VITALS: BP 118/90; PULSE 59; RESP 20; O2SAT 94
[2021-11-07 18:46] LABS: Bedside Glucose 117 mg/dL (70-110)
[2021-11-07 19:17] VITALS: BP 140/87
[2021-11-07 20:15] VITALS: BP 111/55; PULSE 62
[2021-11-08 11:25] LABS: Bedside Glucose 20 mg/dL (70-110)
[2021-11-08 11:25] LABS: Bedside Glucose 75 mg/dL (70-110)
== END 2021-11-07 20:26 | disposition home or self-care (01) ==
PROVIDERS: Emergency Provider Student in an Organized Health Care Education/Training Program; PCP Family Medicine Geriatric Medicine; Visit Provider Student in an Organized Health Care Education/Training Program
DX: E11.649 Type 2 diabetes mellitus with hypoglycemia without coma (principal); E11.621 Type 2 diabetes mellitus with foot ulcer; L97.912 Non-pressure chronic ulcer of unspecified part of right lower leg with fat layer exposed; L97.522 Non-pressure chronic ulcer of other part of left foot with fat layer exposed; E11.42 Type 2 diabetes mellitus with diabetic polyneuropathy; I10 Essential (primary) hypertension; E78.5 Hyperlipidemia, unspecified; G47.30 Sleep apnea, unspecified; Z99.89 Dependence on other enabling machines and devices; N40.0 Benign prostatic hyperplasia without lower urinary tract symptoms; R53.81 Other malaise; R23.4 Changes in skin texture; L84 Corns and callosities; R60.0 Localized edema
CPT/HCPCS: 11042; 80048; 82962; 85025; 99282

== ENCOUNTER 2021-12-19 13:00 | Outpatient (RCR) | payer MEDICARE, MEDICAID, SELFPAY ==
[2021-11-20 00:26] VITALS: BP 138/59; PULSE 84; RESP 20; TEMP 36.4; BMI 48.5
[2021-11-28 13:10] VITALS: BP 116/62; PULSE 99; RESP 22; TEMP 36.2; BMI 48.5
--- NOTE | 2021-11-28 14:18 | PN.PCM_ITS ---
History of Present Illness Date of Service: 11/28/21 Chief Complaint: Diabetic left foot ulceration, [place] Grade 3 right leg ulcer History of Wound: This 66-year-old male with multiple comorbidities was seen today for left foot ulcer that is very chronic. He was also seen for right leg ulcer. He denies diarrhea, fever, chill, nausea, vomiting. He denies redness or odor. He denies calf pain. He has debility and difficulty walking. He was trying to get approved for an electric wheelchair in which he was successful. However the parts are still on back order. He wears his offloading cam walker only occasionally. He has a new right ankle wound and denies knowledge of this. he also denies increased edema or injury. Progress of Wound: stable Objective Data Objective Data Vital Signs: Vital Signs Temp Pulse Resp BP 97.1 F L 99 22 H 116/62 11/28/21 13:10 11/28/21 13:10 11/28/21 13:10 11/28/21 13:10 Weight: 147.418 kg Body Mass Index (BMI) 48.5 Physical Exam Extremity Extremity Narrative: No calf tenderness Diminished pulses Left transmetatarsal amputation Muscle wasting noted Skin Skin Narrative: no purulence, no streaking, no odor, no infection. Bilateral lower extremity skin is atrophic and hairless. skin discontinuity right central anterior leg and new ulcer to lateral distal right ankle/lower leg with granular base. Callus and fissure plantar medial first metatarsal head without ulcer formation noted upon debridement, left. Left plantar foot ulcer has improvement in healthy granular base tissue without devitalized central location. No maceration, necrosis or infection. Neuro Neuro Narrative: lack of normal epicritic sensation via light touch is consistent with neuropathy status Debridement Note Debridement Note Wound debrided: right anterior leg and distal lateral leg. left plantar foot Wound Grade/Stage: 1,1,1 Type of Debridement: Excisional debridement Anesthesia Used: 4% Lidocaine Solution Depth: in the subcutaneous layer Percentage of wound debrided: 100 Instrument Used: #15 blade Tissue Removed: fibrous, devitalized subcutaneous, biofilm, slough Severity: Fat Layer Exposed Amount of bleeding with debridement: Mild Bleeding Controlled with: Pressure Patient tolerated procedure: Patient tolerated procedure well Post-Debridement Measurements and Additional Note: Post-Debridement Measurements/Treatment WC - Nurse 1 - General Ulcer Assessment Start: 11/28/21 13:09 Freq: Status: Active Protocol: [email or web address] Activity Type Activity Date Activity User E-Sign Co-Sign Detail Recorded Client Recorded Date Recorded By Document 11/28/21 13:10 DL [id number] 11/28/21 13:21 DL 11/28/21 13:10 - Today's Visit Information Type of service Follow-up Visit (Physician/DIGITAL PHOTOGRAPHIC PRINTER ) Arrival Mode Ambulatory, Walker Transfer Assistance Stretcher Patient Identification Verified (Name & Yes ) Patient Requires Transmission-Based No Precautions Finger Stick Blood Sugar(mg/dl) (if 149 indicated): Blood Sugar Stated by Patient Height and Weight Body Mass Index (BMI) 48.5 BMI Classification Obese Vital Signs Temperature (97.8 F-99.1 F) 97.1 F L Temperature Source Temporal Pulse Rate (60-100) 99 Pulse Location Monitor Respiratory Rate (12-18) 22 H Respiratory rate source Observation Blood Pressure (90/60-120/80) 116/62 Blood Pressure Mean (mm Hg) 80 Source Monitor History Since Last Visit- (Skip if this is Patient's initial visit) Have you changed medications since your No last visit? Any new allergies or adverse reactions No Had a fall/change in ADL's that may No increase risk of falls Signs or symptoms of abuse and/or No neglect since last visit Have you been in the hospital since your No last visit? Has dressing in place as prescribed Yes Has compression in place as prescribed No Has offloadiing in place as prescribed N/A Experienced any changes in pain level or No management Pain Scale: 0-10 Numeric Is Patient Pain Free? Yes - Nurse 1 - General Ulcer Measurement Start: 11/28/21 13:09 Freq: Status: Active Protocol: Activity Type Activity Date Activity User E-Sign Co-Sign Detail Recorded Client Recorded Date Recorded By Document 11/28/21 13:10 DL [id number] 11/28/21 13:21 DL 11/28/21 13:10 Wound Center Nurse 1 #20- R BRYANT -Current Size (cm) - Length 0.8 -Current Size (cm) - Width 0.7 -Current Size (cm) - Depth 0.2 -Total Square Cm 0.56 -Photo Taken No -Exudate Amt None Present -Wound Margin Flat & Intact -Granulation Amt Large (67-100%) -Granulation Quality Red -Necrosis Amt None Present (0 %) -Structure Exposed N/A -Texture (Maria M-wound Skin Appearance) Scarring -Moisture (Maria M-wound Skin Appearance) No Abnormality -Color (Maria M-wound Skin Appearance) Hemosiderin Staining -Temperature (Maria M-wound Skin No Abnormality Appearance) (Pt Warm) -Tenderness on Palpation (Maria M-wound No Skin Appearance) -Ulcer Cleansing Rinsed/ Irrigated with Saline -Foul Odor after Cleansing No -Anesthetic Used 5% Lidocaine Gel #13 LEFT MEDIAL PLANTAR -Current Size (cm) - Length 1.8 -Current Size (cm) - Width 1.9 -Current Size (cm) - Depth 0.5 -Total Square Cm 3.42 -Photo Taken No -Exudate Amt Small -Exudate Type Serosanguineous -Wound Margin Thickened -Granulation Amt Large (67-100%) -Granulation Quality Red -Necrosis Amt Small (1-33%) -Necrotic Tissue Type Adherent Slough -Structure Exposed N/A -Texture (Maria M-wound Skin Appearance) Callus,Scarring -Moisture (Maria M-wound Skin Appearance) Dry/Scaly -Color (Maria M-wound Skin Appearance) No Abnormality -Temperature (Maria M-wound Skin No Abnormality Appearance) (Pt Warm) -Tenderness on Palpation (Maria M-wound No Skin Appearance) -Ulcer Cleansing Soap and Water -Foul Odor after Cleansing No -Anesthetic Used 4% Lidocaine Solution Right Calf (cm) 41.2 Right Ankle (cm) 24 Left Calf (cm) 41 Left Ankle (cm) 25.5 WC - Nurse 2 - General Ulcer CM Notes Start: 11/28/21 13:09 Freq: Status: Active Protocol: Activity Type Activity Date Activity User E-Sign Co-Sign Detail Recorded Client Recorded Date Recorded By Document 11/28/21 13:40 CASSY [id number] 11/28/21 13:47 CASSY 11/28/21 13:40 Wound Center Nurse 2 21-right lateral lower leg -Time 13:43 -Correct Patient Yes -Correct Side, Site, Position Yes -Correct Procedure Yes -Procedure Performed Yes -Type of Procedure Debridement -Clinical Debridement Subcutaneous -Tissue Removed Subcutaneous -Post Debridement (cm) - Length 3.2 -Post Debridement (cm) - Width 1.4 -Post Debridement (cm) - Depth 0.1 -Total Square (Post) (cm) 4.48 -Area of Debridement (cm) - Length 3.2 -Area of Debridement (cm) - Width 1.4 -Total Square (Area) (cm) 4.48 -Tunneling No -Undermining/Tunneling No -Circular Undermining No -Wound/Ulcer Outcome Not Healed -Ulcer Cleansing Rinsed/ Irrigated with Saline -Foul Odor after Cleansing No -Bioengineered Tissue No -Bleeding Controlled with Pressure -Offloading No -Treatment Response Procedure Tolerated Well -Debridement - Subq, 1st 20sq cm No #20- R BRYANT -Time 13:41 -Correct Patient Yes -Correct Side, Site, Position Yes -Correct Procedure Yes -Procedure Performed Yes -Type of Procedure Debridement -Clinical Debridement Subcutaneous -Tissue Removed Subcutaneous -Post Debridement (cm) - Length 0.8 -Post Debridement (cm) - Width 0.8 -Post Debridement (cm) - Depth 0.1 -Total Square (Post) (cm) 0.64 -Area of Debridement (cm) - Length 0.8 -Area of Debridement (cm) - Width 0.8 -Total Square (Area) (cm) 0.64 -Tunneling No -Undermining/Tunneling No -Circular Undermining No -Wound/Ulcer Outcome Not Healed -Ulcer Cleansing Rinsed/ Irrigated with Saline -Foul Odor after Cleansing No -Bioengineered Tissue No -Bleeding Controlled with Pressure -Offloading No -Treatment Response Procedure Tolerated Well -Debridement - Subq, 1st 20sq cm No #13 LEFT MEDIAL PLANTAR -Time 13:42 -Correct Patient Yes -Correct Side, Site, Position Yes -Correct Procedure Yes -Procedure Performed Yes -Type of Procedure Debridement -Clinical Debridement Subcutaneous -Tissue Removed Subcutaneous -Post Debridement (cm) - Length 1.9 -Post Debridement (cm) - Width 2.0 -Post Debridement (cm) - Depth 0.3 -Total Square (Post) (cm) 3.80 -Area of Debridement (cm) - Length 1.9 -Area of Debridement (cm) - Width 2.0 -Total Square (Area) (cm) 3.80 -Tunneling No -Undermining/Tunneling No -Circular Undermining No -Wound/Ulcer Outcome Not Healed -Ulcer Cleansing Rinsed/ Irrigated with Saline -Foul Odor after Cleansing No -Bioengineered Tissue No -Bleeding Controlled with Pressure -Offloading Yes -Type of Offloading Camwalker -Treatment Response Procedure Tolerated Well -Debridement - Subq, 1st 20sq cm Yes Pain Scale: 0-10 Numeric Is Patient Pain Free? Yes - Nurse 3 - General Ulcer D/C NN Start: 11/28/21 13:09 Freq: Status: Active Protocol: Activity Type Activity Date Activity User E-Sign Co-Sign Detail Recorded Client Recorded Date Recorded By Document 11/28/21 14:09 DL [id number] 11/28/21 14:13 DL 11/28/21 14:09 Wound Care Nurse 3 21-right lateral lower leg -Ulcer Cleansing Soap and Water -Primary Dressing Applied NonAdherent Contact Layer -Other Dressing hydrogel -Primary Dressing Covered/Secured with Dry Gauze & Roll Gauze, Secured with Tape #20- R BRYANT -Ulcer Cleansing Soap and Water -Primary Dressing Applied NonAdherent Contact Layer -Other Dressing hydrogel -Primary Dressing Covered/Secured with Dry Gauze & Roll Gauze, Secured with Tape #13 LEFT MEDIAL PLANTAR -Ulcer Cleansing Soap and Water -Foul Odor after Cleansing No -Primary Dressing Applied Aquacel AG 2x2 -Primary Dressing Covered/Secured with Dry Gauze & Roll Gauze, Secured with Tape -Aquacel AG 2x2 1 Treatment Response Procedure Tolerated Well Pain Scale: 0-10 Numeric Is Patient Pain Free? 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: CODE(S): L97.912 - Non-pressure chronic ulcer of unspecified part of right lower leg with fat layer exposed (2) Non-pressure chronic ulcer of other part of left foot with fat layer exposed: CODE(S): L97.522 - Non-pressure chronic ulcer of other part of left foot with fat layer exposed (3) Type 2 diabetes mellitus with diabetic polyneuropathy: CODE(S): E11.42 - Type 2 diabetes mellitus with diabetic polyneuropathy QUALIFIERS: Diabetes mellitus detention insulin use: without detention use Qualified Code(s): E11.42 - Type 2 diabetes mellitus with diabetic polyneuropathy (4) Debility: CODE(S): R53.81 - Other malaise (5) Localized edema: CODE(S): R60.0 - Localized edema PLAN: I reviewed and discussed his case. Subcutaneous excisional debridement was performed as noted in the clinical panel to the left foot and right leg. His new right lower leg/ankle ulcer is noted. Edema noted and has been addressed. To elevate and reduce salt intake. To continue with Tubigrip compression garments. Okay to apply additional Angus wrap during exacerbation. To change left foot ulcer daily with aquacell ag gauze. To change right leg ulcer with hydrogel and Adaptic if needed. It is noted he had prior advanced wound healing product application and total contact cast applications. To continue diabetic [place]. I would like him to wash this daily with soap and water the left foot. He is reassured no local signs of infection are noted however these are precautions to prevent further devitalization or bacterial colonization. He has a surgical offloading shoe at home. To offload left foot ulcer with Cam walker offloading Plastizote liner. The offloading pocket appears appropriately aligned to take pressure off of the ulcer site now. To use a walker until his wheelchair arrives. Compliance was reviewed. I discussed the need for serious offloading for limb salvage purposes. He has tried various shoes and walking boots. He has struggled with the use of such as a walker of a knee roller and has impaired gait. An electric power wheelchair (extra width-heavy duty) is also an option and at this time I recommend this. Per the patient, this was recently approved he was advised to proceed forward with getting the device to ensure he is able to offload. He also previously installed a ramp at his home to accommodate home entry. His noninvasive vascular studies were reviewed from 05-04-2020 which were normal and intervention was previously not recommended. Urine he had bilateral arterial duplex and was advised to follow-up 1 year for updated exam. I reviewed Dr. Bonilla's note from June 14, 2020. To continue to work on decreasing glucose levels. He has a history of hyperglycemia. His last A1c was 8.8% in October 2020. To continue follow-up with primary care physician. To continue to follow-up with nutritional services. To continue to follow-up as advised. It is noted he is eating a limited amount of whole foods; I recommend starting with at least 5-10 each day. Some examples were provided. He is currently making adjustments with his nutritional habits. He also follows up with ornamental metal worker apprentice, Dr. Arteaga, who is working with him to reduce his hemoglobin A1c with medication and behavioral changes. He started a new medication recently to better control his glucose levels he reports his home glucose levels have been decreasing. Smoking cessation was discussed in detail and he was advised on the healing impairment associated with this. To continue with his smoking cessation program. He denies current tobacco use. I also recommend discontinuation of nicotine products for this also contributes to small vessel contraction. He elects to continue. The following options exist: Proceeding with a palliative wound care plan which he follows up every 2 to 4 weeks and the goal is to keep the ulcers noninfected and stable, below-knee amputation, revision transmetatarsal amputation with rotational skin flap. Prognosis is guarded with ongoing glucose elevation and inability to comply with nonweightbearing standards. He is hopeful that wheelchair with aid offloading goals. I answered all of his questions today. To return to clinic in 2 weeks with physician, or call sooner if questions, concerns, or progressive worsening. Note: [email or web address] speech recognition microfilm machine operator software was used to create portions of this document. Sound-alike and misspelled words, as well as other microfilm machine operator errors may be contained in the documentation. The medical decision making level is low. There is noted low risk of morbidity after considering this treatment plan and diagnostic data. The problems addressed require a low medical decision making level which includes two or more minor problems, a stable chronic illness, or an acute uncomplicated illness or injury.
[2021-12-19 13:23] VITALS: BP 141/63; PULSE 90; TEMP 35.8; BMI 48.5
--- NOTE | 2021-12-19 15:45 | PCM.WC.PN ---
History of Present Illness Date of Service: 12/19/21 Chief Complaint: Diabetic left foot ulceration, [place] Grade 3 right leg ulcer History of Wound: This 66-year-old male with multiple comorbidities was seen today for left foot ulcer that is very chronic. He was also seen for right leg ulcer. He denies diarrhea, fever, chill, nausea, vomiting. He denies redness or odor. He denies calf pain. He has debility and difficulty walking. He was trying to get approved for an electric wheelchair in which he was successful. However the parts are still on back order. He wears his offloading cam walker only occasionally. He has a new right ankle wound and denies knowledge of this. he also denies increased edema or injury. Progress of Wound: stable left foot Improving right leg Objective Data Objective Data Vital Signs: Vital Signs Temp Pulse Resp BP 96.5 F L 90 22 H 141/63 H 12/19/21 13:23 12/19/21 13:23 11/28/21 13:10 12/19/21 13:23 Weight: 147.418 kg Body Mass Index (BMI) 48.5 Physical Exam Extremity Extremity Narrative: No calf tenderness Diminished pulses Left transmetatarsal amputation Muscle wasting noted Skin Skin Narrative: no purulence, no streaking, no odor, no infection. Bilateral lower extremity skin is atrophic and hairless. skin discontinuity right central anterior leg healed and decreased size to the lateral distal right ankle/lower leg with granular base. Callus and fissure plantar medial first metatarsal head without ulcer formation noted upon debridement, left. Left plantar foot ulcer has improvement in healthy granular base tissue without devitalized central location. No maceration, necrosis or infection. Neuro Neuro Narrative: lack of normal epicritic sensation via light touch is consistent with neuropathy status Debridement Note Debridement Note Wound debrided: right leg, plantar left foot Wound Grade/Stage: 1,1 Type of Debridement: Excisional debridement Anesthesia Used: 4% Lidocaine Solution Depth: in the subcutaneous layer Percentage of wound debrided: 100 Instrument Used: #15 blade Tissue Removed: fibrous, devitalized subcutaneous, biofilm, slough Severity: Fat Layer Exposed Amount of bleeding with debridement: Mild Bleeding Controlled with: Pressure Patient tolerated procedure: Patient tolerated procedure well Post-Debridement Measurements and Additional Note: Post-Debridement Measurements/Treatment WC - Nurse 1 - General Ulcer Assessment Start: 11/28/21 13:09 Freq: Status: Active Protocol: MARIA ESTHER Activity Type Activity Date Activity User E-Sign Co-Sign Detail Recorded Client Recorded Date Recorded By Document 11/28/21 13:10 DL [id number] 11/28/21 13:21 DL Document 12/19/21 13:23 AK [id number] 12/19/21 13:26 AK 11/28/21 12/19/21 13:10 13:23 - Today's Visit Information Type of service Follow-up Visit Follow-up Visit (Physician/LIFE CLAIMS EXAMINER (Physician/LIFE CLAIMS EXAMINER ) ) Arrival Mode Ambulatory, Walker Walker Transfer Assistance Stretcher Patient Identification Verified (Name & Yes Yes ) Patient Requires Transmission-Based No No Precautions Safety Precautions NA Finger Stick Blood Sugar(mg/dl) (if 149 indicated): Blood Sugar Stated by Patient Height and Weight Body Mass Index (BMI) 48.5 48.5 BMI Classification Obese Obese Vital Signs Temperature (97.8 F-99.1 F) 97.1 F L 96.5 F L Temperature Source Temporal Temporal Pulse Rate (60-100) 99 90 Pulse Location Monitor Respiratory Rate (12-18) 22 H Respiratory rate source Observation Blood Pressure (90/60-120/80) 116/62 141/63 H Blood Pressure Mean (mm Hg) 80 89 Source Monitor Monitor History Since Last Visit- (Skip if this is Patient's initial visit) Have you changed medications since your No No last visit? Any new allergies or adverse reactions No No Had a fall/change in ADL's that may No No increase risk of falls Signs or symptoms of abuse and/or No No neglect since last visit Have you been in the hospital since your No No last visit? Has dressing in place as prescribed Yes Yes Has compression in place as prescribed No N/A Has offloadiing in place as prescribed N/A N/A Experienced any changes in pain level or No No management Left Footwear Regular Shoe Right Footwear Surgical Shoe with pressure relief insole Pain Scale: 0-10 Numeric Is Patient Pain Free? Yes Yes - Nurse 1 - General Ulcer Measurement Start: 11/28/21 13:09 Freq: Status: Active Protocol: Activity Type Activity Date Activity User E-Sign Co-Sign Detail Recorded Client Recorded Date Recorded By Document 11/28/21 13:10 DL [id number] 11/28/21 13:21 DL Document 12/19/21 13:23 AK [id number] 12/19/21 13:26 AK 11/28/21 12/19/21 13:10 13:23 Wound Center Nurse 1 21-right lateral lower leg -Combined with other wound No -Current Size (cm) - Length 0.1 -Current Size (cm) - Width 0.1 -Current Size (cm) - Depth 0.1 -Total Square Cm 0.01 -Photo Taken No -Tunneling No -Undermining/Tunneling No -Circular Undermining No -Exudate Amt Small -Exudate Type Serosanguineous -Wound Margin Distinct, Outline Attached -Granulation Amt Small (1-33%) -Granulation Quality [place] -Slough/Fibrin No -Structure Exposed N/A -Texture (Maria M-wound Skin Appearance) No Abnormality, Assessed -Moisture (Maria M-wound Skin Appearance) No Abnormality, Assessed -Color (Maria M-wound Skin Appearance) No Abnormality, Assessed -Temperature (Maria M-wound Skin No Abnormality Appearance) (Pt Warm) -Ulcer Cleansing Rinsed/ Irrigated with Saline -Foul Odor after Cleansing No -Anesthetic Used 4% Lidocaine Solution #20- R BRYANT -Current Size (cm) - Length 0.8 -Current Size (cm) - Width 0.7 -Current Size (cm) - Depth 0.2 -Total Square Cm 0.56 -Photo Taken No -Exudate Amt None Present -Wound Margin Flat & Intact -Granulation Amt Large (67-100%) -Granulation Quality Red -Necrosis Amt None Present (0 %) -Structure Exposed N/A -Texture (Maria M-wound Skin Appearance) Scarring -Moisture (Maria M-wound Skin Appearance) No Abnormality -Color (Maria M-wound Skin Appearance) Hemosiderin Staining -Temperature (Maria M-wound Skin No Abnormality Appearance) (Pt Warm) -Tenderness on Palpation (Maria M-wound No Skin Appearance) -Ulcer Cleansing Rinsed/ Irrigated with Saline -Foul Odor after Cleansing No -Anesthetic Used 5% Lidocaine Gel #13 LEFT MEDIAL PLANTAR -Combined with other wound No -Current Size (cm) - Length 1.8 2 -Current Size (cm) - Width 1.9 1.5 -Current Size (cm) - Depth 0.5 0.3 -Total Square Cm 3.42 3.0 -Photo Taken No No -Epithelialization Small 1-33% -Tunneling No -Undermining/Tunneling No -Circular Undermining Yes -Exudate Amt Small Medium -Exudate Type Serosanguineous Serosanguineous -Wound Margin Thickened Thickened & Rolled Under -Granulation Amt Large (67-100%) Medium (34-66%) -Granulation Quality Red [place],Red -Slough/Fibrin Yes -Necrosis Amt Small (1-33%) Small (1-33%) -Necrotic Tissue Type Adherent Slough Adherent Slough -Structure Exposed N/A N/A -Texture (Maria M-wound Skin Appearance) Callus,Scarring Assessed,Callus -Moisture (Maria M-wound Skin Appearance) Dry/Scaly Assessed,Dry/ Scaly -Color (Maria M-wound Skin Appearance) No Abnormality No Abnormality, Assessed -Temperature (Maria M-wound Skin No Abnormality No Abnormality Appearance) (Pt Warm) (Pt Warm) -Tenderness on Palpation (Maria M-wound No No Skin Appearance) -Ulcer Cleansing Soap and Water Rinsed/ Irrigated with Saline -Foul Odor after Cleansing No No -Anesthetic Used 4% Lidocaine 4% Lidocaine Solution Solution Right Calf (cm) 41.2 Right Ankle (cm) 24 Left Calf (cm) 41 Left Ankle (cm) 25.5 WC - Nurse 2 - General Ulcer CM Notes Start: 11/28/21 13:09 Freq: Status: Active Protocol: Activity Type Activity Date Activity User E-Sign Co-Sign Detail Recorded Client Recorded Date Recorded By Document 11/28/21 13:40 [id number] 11/28/21 13:47 Document 12/19/21 13:31 [id number] 12/19/21 13:36 11/28/21 12/19/21 13:40 13:31 Wound Center Nurse 2 21-right lateral lower leg -Time 13:43 13:31 -Correct Patient Yes No -Correct Side, Site, Position Yes No -Correct Procedure Yes No -Procedure Performed Yes No -Type of Procedure Debridement -Clinical Debridement Subcutaneous -Tissue Removed Subcutaneous -Post Debridement (cm) - Length 3.2 -Post Debridement (cm) - Width 1.4 -Post Debridement (cm) - Depth 0.1 -Total Square (Post) (cm) 4.48 -Area of Debridement (cm) - Length 3.2 -Area of Debridement (cm) - Width 1.4 -Total Square (Area) (cm) 4.48 -Tunneling No No -Undermining/Tunneling No No -Circular Undermining No No -Wound/Ulcer Outcome Not Healed Not Healed -Ulcer Cleansing Rinsed/ Rinsed/ Irrigated with Irrigated with Saline Saline -Foul Odor after Cleansing No No -Bioengineered Tissue No No -Bleeding Controlled with Pressure Pressure -Treatment Response Procedure Procedure Tolerated Well Tolerated Well -Offloading No No -Debridement - Subq, 1st 20sq cm No No #20- R BRYANT -Time 13:41 13:32 -Correct Patient Yes Yes -Correct Side, Site, Position Yes Yes -Correct Procedure Yes Yes -Procedure Performed Yes Yes -Type of Procedure Debridement Debridement -Clinical Debridement Subcutaneous Subcutaneous -Tissue Removed Subcutaneous Subcutaneous -Post Debridement (cm) - Length 0.8 0.4 -Post Debridement (cm) - Width 0.8 0.5 -Post Debridement (cm) - Depth 0.1 0.1 -Total Square (Post) (cm) 0.64 0.20 -Area of Debridement (cm) - Length 0.8 0.4 -Area of Debridement (cm) - Width 0.8 0.5 -Total Square (Area) (cm) 0.64 0.20 -Tunneling No No -Undermining/Tunneling No No -Circular Undermining No No -Wound/Ulcer Outcome Not Healed Not Healed -Ulcer Cleansing Rinsed/ Rinsed/ Irrigated with Irrigated with Saline Saline -Foul Odor after Cleansing No No -Bioengineered Tissue No No -Bleeding Controlled with Pressure Pressure -Treatment Response Procedure Procedure Tolerated Well Tolerated Well -Offloading No No -Debridement - Subq, 1st 20sq cm No No #13 LEFT MEDIAL PLANTAR -Time 13:42 13:32 -Correct Patient Yes Yes -Correct Side, Site, Position Yes Yes -Correct Procedure Yes Yes -Procedure Performed Yes Yes -Type of Procedure Debridement Debridement -Clinical Debridement Subcutaneous Subcutaneous -Tissue Removed Subcutaneous Subcutaneous -Post Debridement (cm) - Length 1.9 1.8 -Post Debridement (cm) - Width 2.0 1.8 -Post Debridement (cm) - Depth 0.3 0.3 -Total Square (Post) (cm) 3.80 3.24 -Area of Debridement (cm) - Length 1.9 1.8 -Area of Debridement (cm) - Width 2.0 1.8 -Total Square (Area) (cm) 3.80 3.24 -Tunneling No No -Undermining/Tunneling No No -Circular Undermining No No -Wound/Ulcer Outcome Not Healed Not Healed -Ulcer Cleansing Rinsed/ Rinsed/ Irrigated with Irrigated with Saline Saline -Foul Odor after Cleansing No No -Bioengineered Tissue No No -Bleeding Controlled with Pressure Pressure -Treatment Response Procedure Procedure Tolerated Well Tolerated Well -Offloading Yes Yes -Type of Offloading Camwalker Surgical Shoe -Debridement - Subq, 1st 20sq cm Yes Yes Pain Scale: 0-10 Numeric Is Patient Pain Free? Yes Yes WC - Nurse 3 - General Ulcer D/C NN Start: 11/28/21 13:09 Freq: Status: Active Protocol: Activity Type Activity Date Activity User E-Sign Co-Sign Detail Recorded Client Recorded Date Recorded By Document 11/28/21 14:09 DL [id number] 11/28/21 14:13 DL Document 12/19/21 13:48 DL [id number] 12/19/21 13:50 DL 11/28/21 12/19/21 14:09 13:48 Wound Care Nurse 3 21-right lateral lower leg -Ulcer Cleansing Soap and Water -Primary Dressing Applied NonAdherent Contact Layer -Other Dressing hydrogel -Primary Dressing Covered/Secured with Dry Gauze & Roll Gauze, Secured with Tape #20- R BRYANT -Ulcer Cleansing Soap and Water Rinsed/ Irrigated with Saline -Foul Odor after Cleansing No -Primary Dressing Applied NonAdherent C Hydrogel ($) Contact Layer -Other Dressing hydrogel -Primary Dressing Covered/Secured with Dry Gauze & Dry Gauze, Roll Gauze, Secured with Secured with Tape Tape #13 LEFT MEDIAL PLANTAR -Ulcer Cleansing Soap and Water Rinsed/ Irrigated with Saline -Foul Odor after Cleansing No No -Primary Dressing Applied Aquacel AG 2x2 Aquacel AG 2x2 -Primary Dressing Covered/Secured with Dry Gauze & Dry Gauze & Roll Gauze, Roll Gauze, Secured with Secured with Tape Tape -Aquacel AG 2x2 1 1 Treatment Response Procedure Procedure Tolerated Well Tolerated Well Pain Scale: 0-10 Numeric Is Patient Pain Free? 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: CODE(S): L97.912 - Non-pressure chronic ulcer of unspecified part of right lower leg with fat layer exposed (2) Non-pressure chronic ulcer of other part of left foot with fat layer exposed: CODE(S): L97.522 - Non-pressure chronic ulcer of other part of left foot with fat layer exposed (3) Type 2 diabetes mellitus with diabetic polyneuropathy: CODE(S): E11.42 - Type 2 diabetes mellitus with diabetic polyneuropathy QUALIFIERS: Diabetes mellitus lobsterman insulin use: without jail use Qualified Code(s): E11.42 - Type 2 diabetes mellitus with diabetic polyneuropathy (4) Debility: CODE(S): R53.81 - Other malaise (5) Localized edema: CODE(S): R60.0 - Localized edema PLAN: I reviewed and discussed his case. Subcutaneous excisional debridement was performed as noted in the clinical panel to the left foot and right leg. His new right lower leg/ankle ulcer is noted. Edema noted and has been addressed. To elevate and reduce salt intake. To continue with Tubigrip compression garments. Okay to apply additional Angus wrap during exacerbation. To change left foot ulcer daily with aquacell ag gauze. To change right leg ulcer with hydrogel and Adaptic if needed. It is noted he had prior advanced wound healing product application and total contact cast applications. To continue diabetic [place]. I would like him to wash this daily with soap and water the left foot. He is reassured no local signs of infection are noted however these are precautions to prevent further devitalization or bacterial colonization. He has a surgical offloading shoe at home. To offload left foot ulcer with Cam walker offloading Plastizote liner. The offloading pocket appears appropriately aligned to take pressure off of the ulcer site now. To use a walker until his wheelchair arrives. Compliance was reviewed. I discussed the need for serious offloading for limb salvage purposes. He has tried various shoes and walking boots. He has struggled with the use of such as a walker of a knee roller and has impaired gait. An electric power wheelchair (extra width-heavy duty) is also an option and at this time I recommend this. Per the patient, this was recently approved he was advised to proceed forward with getting the device to ensure he is able to offload. He also previously installed a ramp at his home to accommodate home entry. His noninvasive vascular studies were reviewed from 05-04-2020 which were normal and intervention was previously not recommended. Urine he had bilateral arterial duplex and was advised to follow-up 1 year for updated exam. I reviewed Dr. Bonilla's note from June 14, 2020. To continue to work on decreasing glucose levels. He has a history of hyperglycemia. His last A1c was 8.8% in October 2020. To continue follow-up with primary care physician. To continue to follow-up with nutritional services. To continue to follow-up as advised. It is noted he is eating a limited amount of whole foods; I recommend starting with at least 5-10 each day. Some examples were provided. He is currently making adjustments with his nutritional habits. He also follows up with executive chef assistant, Dr. Arteaga, who is working with him to reduce his hemoglobin A1c with medication and behavioral changes. He started a new medication recently to better control his glucose levels he reports his home glucose levels have been decreasing. Smoking cessation was discussed in detail and he was advised on the healing impairment associated with this. To continue with his smoking cessation program. He denies current tobacco use. I also recommend discontinuation of nicotine products for this also contributes to small vessel contraction. He elects to continue. The following options exist: Proceeding with a palliative wound care plan which he follows up every 2 to 4 weeks and the goal is to keep the ulcers noninfected and stable, below-knee amputation, revision transmetatarsal amputation with rotational skin flap. Prognosis is guarded with ongoing glucose elevation and inability to comply with nonweightbearing standards. He is hopeful that wheelchair with aid offloading goals. I answered all of his questions today. To return to clinic in 2 weeks with physician, or call sooner if questions, concerns, or progressive worsening. Note: [employer] speech recognition hvac sales representative software was used to create portions of this document. Sound-alike and misspelled words, as well as other hvac sales representative errors may be contained in the documentation.
== END 2021-12-20 23:59 | disposition home or self-care (01) ==
LOC: WC 13:00
PROVIDERS: PCP Family Medicine Geriatric Medicine; Referring Provider Podiatrist; Visit Provider Podiatrist
DX: E11.621 Type 2 diabetes mellitus with foot ulcer (principal); L97.912 Non-pressure chronic ulcer of unspecified part of right lower leg with fat layer exposed; L97.522 Non-pressure chronic ulcer of other part of left foot with fat layer exposed; E11.42 Type 2 diabetes mellitus with diabetic polyneuropathy; R26.2 Difficulty in walking, not elsewhere classified; R60.0 Localized edema; R53.81 Other malaise
CPT/HCPCS: 11042

== ENCOUNTER 2022-01-09 13:00 | Outpatient (RCR) | payer MEDICARE, MEDICAID, SELFPAY ==
[2021-12-21 00:28] VITALS: BP 141/63; PULSE 90; RESP 22; TEMP 35.8; BMI 48.5
[2022-01-09 13:00] VITALS: BP 152/67; PULSE 78; RESP 16; TEMP 36.1; BMI 48.5
--- NOTE | 2022-01-09 14:30 | PCM.WC.PN ---
History of Present Illness Date of Service: 01/09/22 Chief Complaint: Diabetic left foot ulceration, [place] Grade 3 right leg ulcer History of Wound: This 66-year-old male with multiple comorbidities was seen today for left foot ulcer that is very chronic. He was also seen for right leg ulcer. He denies diarrhea, fever, chill, nausea, vomiting. He denies redness or odor. He denies calf pain. He has debility and difficulty walking. He was trying to get approved for an electric wheelchair in which he was successful. However the parts are still on back order. He denies wearing off his offloading boots for knee roller. He walks around at his home in a sock and wears a sneaker while leaving the house. His electric scooter is still on backorder. Objective Data Objective Data Vital Signs: Vital Signs Temp Pulse Resp BP 97 F L 78 16 152/67 H 01/09/22 13:00 01/09/22 13:00 01/09/22 13:00 01/09/22 13:00 Oxygen Delivery Method Room Air Weight: 147.418 kg Body Mass Index (BMI) 48.5 Physical Exam Extremity Extremity Narrative: No calf tenderness Diminished pulses Left transmetatarsal amputation Muscle wasting noted Skin Skin Narrative: no purulence, no streaking, no odor, no infection. Bilateral lower extremity skin is atrophic and hairless. Right leg ulcer is healed with full epithelialization. Left plantar foot ulcer granular base tissue without devitalized central location. The peripheral ulcer callus has excessive formation and some hemorrhagic bleeding today. No maceration, necrosis or infection. Neuro Neuro Narrative: lack of normal epicritic sensation via light touch is consistent with neuropathy status Debridement Note Debridement Note Wound debrided: Plantar medial Wound Grade/Stage: 1 Type of Debridement: Excisional debridement Anesthesia Used: 4% Lidocaine Solution Depth: in the subcutaneous layer Percentage of wound debrided: 100 Instrument Used: #15 blade Tissue Removed: fibrous, devitalized subcutaneous, biofilm, slough Severity: Fat Layer Exposed Amount of bleeding with debridement: Mild Bleeding Controlled with: Pressure Patient tolerated procedure: Patient tolerated procedure well Post-Debridement Measurements and Additional Note: Post-Debridement Measurements/Treatment UZIEL - Nurse 1 - General Ulcer Assessment Start: 01/09/22 13:00 Freq: Status: Active Protocol: MARIA ESTHER Activity Type Activity Date Activity User E-Sign Co-Sign Detail Recorded Client Recorded Date Recorded By Document 01/09/22 13:00 [facility] [id number] 01/09/22 13:05 [facility] 01/09/22 13:00 WC - Today's Visit Information Type of service Follow-up Visit (Physician/[employer] SALESPERSON ) Arrival Mode Ambulatory, Walker Transfer Assistance None Patient Identification Verified (Name & Yes ) Patient Requires Transmission-Based No Precautions Height and Weight Body Mass Index (BMI) 48.5 BMI Classification Obese Vital Signs Temperature (97.8 F-99.1 F) 97 F L Temperature Source Temporal Pulse Rate (60-100) 78 Pulse Location Monitor Respiratory Rate (12-18) 16 Respiratory rate source Observation Oxygen Delivery Method Room Air Blood Pressure (90/60-120/80) 152/67 H Blood Pressure Mean (mm Hg) 95 Source Monitor Position Sitting Blood Pressure Location Left Arm History Since Last Visit- (Skip if this is Patient's initial visit) Have you changed medications since your No last visit? Any new allergies or adverse reactions No Had a fall/change in ADL's that may No increase risk of falls Signs or symptoms of abuse and/or No neglect since last visit Have you been in the hospital since your No last visit? Has dressing in place as prescribed Yes Has compression in place as prescribed No Has offloadiing in place as prescribed N/A Experienced any changes in pain level or No management Left Footwear Regular Shoe Right Footwear Regular Shoe Pain Scale: 0-10 Numeric Is Patient Pain Free? Yes - Nurse 1 - General Ulcer Measurement Start: 01/09/22 13:00 Freq: Status: Active Protocol: Activity Type Activity Date Activity User E-Sign Co-Sign Detail Recorded Client Recorded Date Recorded By Document 01/09/22 13:00 [facility] [id number] 01/09/22 13:05 [facility] 01/09/22 13:00 Wound Center Nurse 1 #20- R BRYANT -Combined with other wound No -Current Size (cm) - Length 0.1 -Current Size (cm) - Width 0.1 -Current Size (cm) - Depth 0.1 -Total Square Cm 0.01 -Date of Last Picture (Recall this 01/09/22 field) -Photo Taken Yes -Epithelialization Large 67-100% -Slough/Fibrin Yes -Necrosis Amt Small (1-33%) -Necrotic Tissue Type Eschar #13 LEFT MEDIAL PLANTAR -Combined with other wound No -Current Size (cm) - Length 2 -Current Size (cm) - Width 2 -Current Size (cm) - Depth 0.9 -Total Square Cm 4 -Date of Last Picture (Recall this 01/09/22 field) -Photo Taken Yes -Epithelialization None Present -Tunneling No -Undermining/Tunneling No -Circular Undermining No -Exudate Amt Medium -Exudate Type Serosanguineous -Wound Margin Distinct, Outline Attached -Granulation Amt Medium (34-66%) -Granulation Quality Pale -Slough/Fibrin Yes -Necrosis Amt Medium (34-66%) -Necrotic Tissue Type Adherent Slough -Texture (Maria M-wound Skin Appearance) Assessed,Callus ,Scarring -Moisture (Maria M-wound Skin Appearance) Assessed,Dry/ Scaly -Color (Maria M-wound Skin Appearance) Assessed -Temperature (Maria M-wound Skin No Abnormality Appearance) (Pt Warm) -Tenderness on Palpation (Maria M-wound No Skin Appearance) -Ulcer Cleansing Soap and Water -Foul Odor after Cleansing No -Anesthetic Used 4% Lidocaine Solution WC - Nurse 2 - General Ulcer CM Notes Start: 01/09/22 13:00 Freq: Status: Active Protocol: Activity Type Activity Date Activity User E-Sign Co-Sign Detail Recorded Client Recorded Date Recorded By Document 01/09/22 13:13 [facility] [id number] 01/09/22 13:17 [facility] 01/09/22 13:13 Wound Center Nurse 2 #20- R BRYANT -Correct Patient No -Correct Side, Site, Position No -Correct Procedure No -Procedure Performed No -Post Debridement (cm) - Length 0 -Post Debridement (cm) - Width 0 -Post Debridement (cm) - Depth 0 -Total Square (Post) (cm) 0 -Area of Debridement (cm) - Length 0 -Area of Debridement (cm) - Width 0 -Total Square (Area) (cm) 0 -Wound/Ulcer Outcome Healed- Epithelialized #13 LEFT MEDIAL PLANTAR -Time 13:14 -Correct Patient Yes -Correct Side, Site, Position Yes -Correct Procedure Yes -Procedure Performed Yes -Type of Procedure Debridement -Clinical Debridement Subcutaneous -Tissue Removed Subcutaneous -Post Debridement (cm) - Length 2.1 -Post Debridement (cm) - Width 2 -Post Debridement (cm) - Depth 0.9 -Total Square (Post) (cm) 4.2 -Area of Debridement (cm) - Length 2.1 -Area of Debridement (cm) - Width 2.0 -Total Square (Area) (cm) 4.20 -Tunneling No -Undermining/Tunneling No -Circular Undermining No -Wound/Ulcer Outcome Not Healed -Ulcer Cleansing Rinsed/ Irrigated with Saline -Foul Odor after Cleansing No -Bioengineered Tissue No -Bleeding Controlled with Pressure -Treatment Response Procedure Tolerated Well -Offloading Yes -Type of Offloading Knee Walker -Assistive Device(s) Walker -Debridement - Subq, 1st 20sq cm Yes Pain Scale: 0-10 Numeric Is Patient Pain Free? Yes - Nurse 3 - General Ulcer D/C NN Start: 01/09/22 13:00 Freq: Status: Active Protocol: Activity Type Activity Date Activity User E-Sign Co-Sign Detail Recorded Client Recorded Date Recorded By Document 01/09/22 13:29 [facility] [id number] 01/09/22 13:30 [facility] 01/09/22 13:29 Wound Care Nurse 3 #13 LEFT MEDIAL PLANTAR -Ulcer Cleansing Rinsed/ Irrigated with Saline -Foul Odor after Cleansing No -Primary Dressing Applied Aquacel AG 2x2 -Other Dressing DRSG PER RB RN -Primary Dressing Covered/Secured with Dry Gauze & Roll Gauze, Secured with Tape,Other -Other Covering ABD -Aquacel AG 2x2 1 BLE -Tubular Bandage Single Layer -Size of Tubigrip Used Size E -Size E ($) 2 Treatment Response Procedure Tolerated Well Pain Scale: 0-10 Numeric Is Patient Pain Free? 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: CODE(S): L97.912 - Non-pressure chronic ulcer of unspecified part of right lower leg with fat layer exposed (2) Non-pressure chronic ulcer of other part of left foot with fat layer exposed: CODE(S): L97.522 - Non-pressure chronic ulcer of other part of left foot with fat layer exposed (3) Type 2 diabetes mellitus with diabetic polyneuropathy: CODE(S): E11.42 - Type 2 diabetes mellitus with diabetic polyneuropathy QUALIFIERS: Diabetes mellitus intermediate insulin use: without intermediate use Qualified Code(s): E11.42 - Type 2 diabetes mellitus with diabetic polyneuropathy (4) Debility: CODE(S): R53.81 - Other malaise (5) Localized edema: CODE(S): R60.0 - Localized edema PLAN: I reviewed and discussed his case. Subcutaneous excisional debridement was performed as noted in the clinical panel to the left foot. All of the right leg ulcers are healed. Edema noted and has been addressed. To elevate and reduce salt intake. To continue with Tubigrip compression garments. Okay to apply additional Angus wrap during exacerbation. To change left foot ulcer daily with aquacell ag gauze. To discontinue right lower extremity dressings because the ulcer is healed. It is noted he had prior advanced wound healing product application and total contact cast applications. To continue diabetic [place]. I would like him to wash this daily with soap and water the left foot. He is reassured no local signs of infection are noted however these are precautions to prevent further devitalization or bacterial colonization. He has a surgical offloading shoe at home. To offload left foot ulcer with Cam walker offloading Plastizote liner. The offloading pocket appears appropriately aligned to take pressure off of the ulcer site now. To use a walker until his wheelchair arrives. Compliance was reviewed. It is noted he has recently completely disregarded the offloading process and his excessive callus buildup. To use knee roller at home and bring his cam walker boot for evaluation next week. I discussed the need for serious offloading for limb salvage purposes. He has tried various shoes and walking boots. He has struggled with the use of such as a walker of a knee roller and has impaired gait. An electric power wheelchair (extra width-heavy duty) is also an option and at this time I recommend this. Per the patient, this was recently approved he was advised to proceed forward with getting the device to ensure he is able to offload. He also previously installed a ramp at his home to accommodate home entry. His noninvasive vascular studies were reviewed from 05-04-2020 which were normal and intervention was previously not recommended. Urine he had bilateral arterial duplex and was advised to follow-up 1 year for updated exam. I reviewed Dr. Bonilla's note from June 14, 2020. To continue to work on decreasing glucose levels. He has a history of hyperglycemia. His last A1c was 8.8% in October 2020. To continue follow-up with primary care physician. To continue to follow-up with nutritional services. To continue to follow-up as advised. It is noted he is eating a limited amount of whole foods; I recommend starting with at least 5-10 each day. Some examples were provided. He is currently making adjustments with his nutritional habits. He also follows up with laundry helper, Dr. Arteaga, who is working with him to reduce his hemoglobin A1c with medication and behavioral changes. He started a new medication recently to better control his glucose levels he reports his home glucose levels have been decreasing. Smoking cessation was discussed in detail and he was advised on the healing impairment associated with this. To continue with his smoking cessation program. He denies current tobacco use. I also recommend discontinuation of nicotine products for this also contributes to small vessel contraction. He elects to continue. The following options exist: Proceeding with a palliative wound care plan which he follows up every 2 weeks and the goal is to keep the ulcers noninfected and stable, below-knee amputation, revision transmetatarsal amputation with rotational skin flap. Prognosis is guarded with ongoing glucose elevation and inability to comply with nonweightbearing standards. He is hopeful that wheelchair with aid offloading goals. I answered all of his questions today. To return to clinic in 2 weeks with physician, or call sooner if questions, concerns, or progressive worsening. Note: [employer] speech recognition tool and die assembler software was used to create portions of this document. Sound-alike and misspelled words, as well as other tool and die assembler errors may be contained in the documentation. 11 minutes was spent on this encounter. This included face to face and non face to face care including preparing for the visit, reviewing the history, performing the exam, counseling and providing education to the patient, family, or caregiver, ordering medications/test/ procedures if indicated as documented, communicating with other healthcare providers, documenting information in the medical record, interpreting / sharing this information when indicated as documented, and care coordination.
== END 2022-01-19 23:59 | disposition home or self-care (01) ==
LOC: WC 13:00
PROVIDERS: PCP Family Medicine Geriatric Medicine; Referring Provider Podiatrist; Visit Provider Podiatrist
DX: E11.621 Type 2 diabetes mellitus with foot ulcer (principal); L97.522 Non-pressure chronic ulcer of other part of left foot with fat layer exposed; L97.912 Non-pressure chronic ulcer of unspecified part of right lower leg with fat layer exposed; E11.42 Type 2 diabetes mellitus with diabetic polyneuropathy; R26.2 Difficulty in walking, not elsewhere classified; R60.0 Localized edema; R53.81 Other malaise
CPT/HCPCS: 11042

== ENCOUNTER → 2022-01-23 | Outpatient (CLI) | payer MEDICARE, MEDICAID, SELFPAY ==
[2022-01-23 15:47] LABS: Absolute Lymphocyte Count 1.88 X10^3/uL (0.83-4.51); Absolute Neutrophil Count 6.8 X10^3/uL (2.0-7.7); Eosinophil# 0.27 X10^3/uL; Eosinophils% 2.8 % (0-5); Hematocrit 48.8 % (40-54); Hemoglobin 15.7 g/dL (13.0-16.5); Lymphocyte # 1.88 X10^3/ul (0.83-4.51); Lymphocyte % 19.2 % (19-41); Mean Corp Hgb Conc 32.2 g/dL (32-36); Mean Platelet Vol. 10.3 fl (6.2-12.0); Monocyte# 0.67 X10^3/uL; Monocyte% 6.8 % (0-10); NRBC Flagged by Analyzer 0 % (0-5); Neutrophil # 6.82 X10^3/uL (2.7-7.7); Neutrophil % 69.5 % (47-70); Platelet Count 288 K/mm3 (150-450); RBC Distribution Width CV 15.9 % (11.6-14.6); RBC Distribution Width SD 50.7 fl (35.1-43.9); Red Blood Count 5.61 M/mm3 (4.6-6.2); White Blood Count 9.8 K/mm3 (4.4-11.0)
[2022-01-23 16:11] LABS: Vitamin D,25 Hydroxy 41.3 ng/mL
[2022-01-23 16:16] LABS: ALB/GLOB Ratio 0.7 RATIO (0.9-2.4); AST(SGOT) 15 U/L (15-37); Alanine Aminotransfer ALT/SGPT 22 U/L (16-61); Albumin, Serum 3.2 g/dL (3.2-5.0); Alkaline Phosphatase 87 U/L (45-117); Anion Gap 6 (5-15); BUN 6 mg/dL (7-18); BUN/Creat Ratio 7.6 RATIO (10-20); Calcium,Total 8.9 mg/dL (8.5-10.1); Chloride 109 mmol/L (98-107); Creatinine, Serum 0.79 mg/dL (0.70-1.30); EST Glomerular Filtration Rate 105 mL/min (>60); Est Glom Filt Rate - Afr Amer 126 mL/min (>60); Globulin 4.5 g/dL (2.2-4.2); Glucose 99 mg/dL (74-106); Potassium 4.2 mmol/L (3.5-5.1); Protein, Total 7.7 g/dL (6.4-8.2); Sodium Level 139 mmol/L (136-145); Thyroid Stim Hormone (TSH) 2.43 uIU/mL (0.358-3.74)
== END | disposition home or self-care (01) ==
LOC: POLAB3 15:16
PROVIDERS: PCP Family Medicine Geriatric Medicine; Visit Provider Family Medicine Geriatric Medicine
DX: I10 Essential (primary) hypertension (principal); E11.65 Type 2 diabetes mellitus with hyperglycemia; F52.8 Other sexual dysfunction not due to a substance or known physiological condition; E55.9 Vitamin D deficiency, unspecified
CPT/HCPCS: 36415; 80053; 82306; 84403; 84443; 85025

== ENCOUNTER 2022-01-26 16:59 | Emergency (ER) | payer MEDICARE, MEDICAID, SELFPAY ==
[2022-01-26 17:00] VITALS: O2SAT 91
[2022-01-26 17:01] VITALS: BP 128/66; PULSE 99; RESP 18; TEMP 35.1; O2SAT 88; BMI 43.5
--- NOTE | 2022-01-26 17:28 | EX.ED.DYSGE1 ---
HPI History of Present Illness Chief Complaint: Hypoglycemia Informant: patient Onset/Context/Timing Onset: Today Context: Gradual Onset Timing: Continuous Quality: weak, in a fog Location: generalized Current Severity: Gone Maximum Severity: Severe Worsened by: nothing Relieved by: oral glucose and IM glucagon Narrative Narrative: Patient was feeling weak, lightheaded, like he was in a fog. He called EMS and they arrived and checked his blood sugar and it was around 30, he was given oral glucose and glucagon, now he feels back to normal. States he is on Humulin 110 units 3 times daily. He did his dose this morning ate 2 different boluses cereal and states he poured sugar on one of them. He is not exactly sure when this episode of hypoglycemia occurred, but he presents here around 5 PM. He did not take his afternoon dose yet nor has he eaten this afternoon. He denies any recent illness except for having had some type of amputation in the toes of his left foot, and some wounds there. He has a cast on it that has been there for a while and he states he has been following with podiatry for that. 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 Chronic ulcer of left foot with fat layer exposed Chronic ulcer of left foot with necrosis of bone Chronic ulcer of left foot with necrosis of muscle Chronic ulcer of right foot with fat layer exposed Chronic ulcer of right foot with necrosis of muscle Corns and callosities CPAP (continuous positive airway pressure) dependence Debility Delayed wound healing Diabetes mellitus Diabetic infection of left foot Diabetic neuropathy Diabetic polyneuropathy Diabetic ulcer of left foot Difficulty in walking, not elsewhere classified Difficulty walking Erectile dysfunction Fissure in skin of foot HTN (hypertension) Hyperlipidemia Hyperlipidemia Hypertension Hypokalemia Localized edema Localized edema Mixed hyperlipidemia Morbid obesity due to excess calories MRSA (methicillin resistant staph aureus) culture positive Neuropathic pain Non-pressure chronic ulcer of other part of left foot with fat layer exposed Non-pressure chronic ulcer of other part of right foot with fat layer exposed Non-pressure chronic ulcer of right calf with fat layer exposed Non-pressure chronic ulcer of unspecified part of left lower leg with fat layer exposed Obesity Obesity Obstructive sleep apnea Onycholysis Osteomyelitis of great toe of left foot Osteomyelitis of left foot Osteomyelitis of right foot Osteomyelitis, unspecified Other hereditary and idiopathic neuropathies Other specified peripheral vascular diseases Peripheral vascular disease Sleep apnea Smoker 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 Tinea unguium Tobacco abuse Tobacco abuse Tobacco abuse counseling Tobacco dependence due to cigarettes Trauma of toe of right foot Type 2 diabetes mellitus Type 2 diabetes mellitus Type 2 diabetes mellitus with diabetic polyneuropathy Ulcer of left foot with muscle involvement without evidence of necrosis Ulcer of left foot with necrosis of muscle Ulcer of left lower extremity with fat layer exposed Ulcer of right foot with fat layer exposed Ulcer of right foot with fat layer exposed Ulcer of right lower extremity with fat layer exposed Home Medications calcium carbonate 500 mg PO DAILY 06/23/17 [History Last Taken 06/23/17] multivitamin 1 ea PO DAILY 06/23/17 [History Last Taken 06/23/17] atorvastatin 40 mg tablet 40 mg PO DAILY 10/18/19 [History Last Taken 08/31/20 22:39] bupropion HCl 150 mg 24 hr tablet, extended release 150 mg PO BID tab 10/18/19 [History Last Taken 09/01/20 08:27] tamsulosin 0.4 mg capsule 0.4 mg PO DAILY@1730 cap 10/18/19 [History Last Taken 08/31/20 17:28] gabapentin 300 mg capsule 600 mg PO TIDCM cap 04/24/20 [History Last Taken 09/01/20 13:15] aspirin 81 mg tablet,delayed release 81 mg PO DAILY tab 07/28/20 [History Last Taken Unknown] lancets 09/01/20 [History Last Taken Unknown] acetaminophen 1,000 mg PO Q6H PRN tab 10/03/20 [Rx Last Taken Unknown] naproxen 500 mg tablet 500 mg PO BID PRN 10/31/20 [History Last Taken Unknown] blood-glucose transmitter #1 ea 11/30/20 [Rx Last Taken Unknown] blood sugar diagnostic #100 ea 08/06/21 [Rx Last Taken Unknown] flash glucose sensor #2 ea 08/23/21 [Rx Last Taken Unknown] Farxiga 10 mg tablet 10 mg PO DAILY #90 tab NS 09/03/21 [Rx Last Taken Unknown] clindamycin HCl 300 mg PO TID #15 cap 11/05/21 [Rx Last Taken Unknown] pantoprazole 40 mg PO BID #60 tab 11/05/21 [Rx Last Taken Unknown] dulaglutide 0.75 mg/0.5 mL subcutaneous pen injector 0.75 mg SUBCUT QWEEK #2 ml 11/14/21 [Rx Last Taken Unknown] lisinopril 40 mg tablet 40 mg PO DAILY #90 tab 11/21/21 [Rx Last Taken Unknown] Humulin R U-500 (Conc) Kwikpen 500 unit/mL (3 mL) subcutaneous 110 unit SUBCUT TID #27 ml NS 12/25/21 [Rx Last Taken Unknown] Allergy/AdvReac Type Severity Reaction Status Date / Time No Known Allergies Allergy Verified 01/26/22 17:04 Family History Father Myocardial infarction Heart disease Mother Kidney disease Diabetes Sister Asthma Breast cancer Hypertension Brother Alcoholism Melanoma Surgical History History of ankle surgery History of deviated nasal septum History of hernia repair History of oral surgery History of transmetatarsal amputation of left foot History of vasectomy Social History household members: none Smoking Status: Current every day smoker tobacco type: cigarettes alcohol intake: never substance use type: does not use what type of physical activity do you participate in: none ROS ROS ED Constitutional Constitutional ED: Denies chills or fever(s) Eyes Eyes: Denies change in vision or diplopia ENT ENT ED: Denies rhinorrhea or sore throat Cardiovascular Cardiovascular: Denies chest pain or palpitations Respiratory/Chest Respiratory/Chest: Denies cough or dyspnea Gastrointestinal Gastrointestinal: Denies abdominal pain, diarrhea, nausea or vomiting Genitourinary Genitourinary ED: Denies dysuria or hematuria Musculoskeletal Musculoskeletal: Denies back pain or neck pain Integumentary Reports as per HPI and wounds; Denies abscess or rash Neurologic Neurologic: Denies headache(s), paresthesias or weakness Psychiatric Psychiatric: Denies anxiety or suicidal thoughts EXAM Physical Exam Const Vital Signs: 01/26/22 17:00 01/26/22 17:01 01/26/22 17:12 Temperature 95.2 F L Temperature Source Temporal Pulse Rate 99 Respiratory Rate 18 Respiratory Effort Normal Non-Labored Respiratory Pattern Normal Blood Pressure 128/66 H Blood Pressure Mean 86 Pulse Ox 91 88 Oxygen Delivery Method Room Air Room Air 01/26/22 18:11 Temperature Temperature Source Pulse Rate 92 Respiratory Rate 18 Respiratory Effort Respiratory Pattern Blood Pressure 136/69 H Blood Pressure Mean 91 Pulse Ox 95 Oxygen Delivery Method Room Air Positive well nourished, well developed and obese General Appearance ED: well developed and NAD Nutritional Appearance: obese HEENT Reports moist mucous membranes normocephalic and atraumatic Eyes PERRL and EOMs intact bilaterally Neck full ROM and supple Resp normal respiratory effort and clear to auscultation bilaterally Effort and Inspection: able to speak in complete sentences Cardio regular rate, regular rhythm and no murmurs Rate: Negative for tachycardic GI non-tender and non-distended Auscultation: normoactive bowel sounds Palpation: soft Back/Spine no CVA tenderness General Back: other FROM Extremity normal to inspection Extremity Narrative: Fiberglass cast left lower extremity including toes which were not visible General Extremety ED: Negative for edema, pulses abnormal or tenderness General Extremity: Negative for edema or pulses abnormal Neuro oriented x3, CN's II-XII intact bilaterally and no sensory deficits noted Sensorium / Orientation: awake and alert Motor Exam: strength 5/5 throughout Skin no rashes or lesions noted and no wounds MDM MDM MDM Narrative Medical decision making narrative: Patient does have a leukocytosis, this is nonspecific count of unknown etiology unless it is just demargination from body stress from the hypoglycemic event which was severe. He has been drinking juice and we got him a tray and he ate a meal here. His initial chemistry showed a blood sugar of 52, but after that he has been over 100 and has had steadily increasing blood sugar since then. He feels back to normal, his son is here and he wants to go home and I am fine with that. We discussed reasons to return, I would follow-up with his commercial kitchen service technician after the weekend. Lab Data Attestation: I reviewed the patient's lab results. Labs: Laboratory Results - last 24 hr 01/26/22 01/26/22 01/26/22 17:04 17:10 17:10 WBC 18.4 H RBC 6.24 H Hgb 17.4 H Hct 55.1 H MCV 88.3 MCH 27.9 MCHC 31.6 L RDW Std Deviation 51.4 H RDW Coeff of Fatuma 17.1 H Plt Count 307 MPV 10.6 Immature Gran % (Auto) 1.000 H Neut % (Auto) 88.8 H Lymph % (Auto) 4.4 L [place] % (Auto) 5.4 Eos % (Auto) 0.0 Baso % (Auto) 0.4 Absolute Neuts (auto) 16.3 H Absolute Lymphs (auto) 0.81 L Nucleated RBC % 0 Sodium 141 Potassium 4.5 Chloride 108 H Carbon Dioxide 26.0 Anion Gap 7 BUN 11 Creatinine 0.77 Estim Creat Clear Calc 108.09 Est GFR (MDRD) Af Amer 130 Est GFR (MDRD) Non-Af 108 BUN/Creatinine Ratio 14.3 Glucose 52 L Calcium 9.4 POC Glucose 52 L 01/26/22 01/26/22 17:34 18:10 WBC RBC Hgb Hct MCV MCH MCHC RDW Std Deviation RDW Coeff of Fatuma Plt Count MPV Immature Gran % (Auto) Neut % (Auto) Lymph % (Auto) [place] % (Auto) Eos % (Auto) Baso % (Auto) Absolute Neuts (auto) Absolute Lymphs (auto) Nucleated RBC % Sodium Potassium Chloride Carbon Dioxide Anion Gap BUN Creatinine Estim Creat Clear Calc Est GFR (MDRD) Af Amer Est GFR (MDRD) Non-Af BUN/Creatinine Ratio Glucose Calcium POC Glucose 50 L 105 Discharge Plan Triage Chief Complaint: Hypoglycemia ED Provider: Khari Zaman Dx/Rx/DC Orders Clinical Impression: Hypoglycemia associated with type 2 diabetes mellitus Instructions: ED Diabetic Insulin Reaction Prescriptions: No Action tamsulosin 0.4 mg capsule 0.4 mg PO DAILY@1730 RF: 0 atorvastatin 40 mg tablet 40 mg PO DAILY RF: 0 bupropion HCl 150 mg tablet extended release 24 hr 150 mg PO BID RF: 0 aspirin [Adult Low Dose Aspirin] 81 mg tablet,delayed release (DR/EC) 81 mg PO DAILY RF: 0 naproxen 500 mg tablet 500 mg PO BID PRN (Reason: Pain) RF: 0 multivitamin 1 EACH tablet 1 ea PO DAILY RF: 0 calcium carbonate 500 MG tablet 500 mg PO DAILY RF: 0 gabapentin 300 mg capsule 600 mg PO TIDCM RF: 0 (DME) lancets 1 EACH misc See Rx Instructions .Route .MEDSUPPLY RF: 0 acetaminophen 500 MG tablet 1,000 mg PO Q6H PRN (Reason: Pain Score 1-5) RF: 0 clindamycin HCl 300 mg capsule 300 mg PO TID Qty: 15 RF: 0 pantoprazole 40 mg tablet,delayed release (DR/EC) 40 mg PO BID Qty: 60 RF: 0 (DME) Dexcom G6 Transmitter Device See Rx Instructions .ROUTE .MEDSUPPLY Qty: 1 RF: 1 (DME) OneTouch Verio test strips Strip See Rx Instructions .ROUTE .MEDSUPPLY Qty: 100 RF: 8 (DME) FreeStyle Heather 2 Sensor Kit See Rx Instructions .ROUTE .MEDSUPPLY Qty: 2 RF: 6 Farxiga 10 mg tablet 10 mg PO DAILY Qty: 90 RF: 1 Trulicity 0.75 mg/0.5 mL pen injector 0.75 mg subcut QWEEK Qty: 2 RF: 3 lisinopril 40 mg tablet 40 mg PO DAILY Qty: 90 RF: 0 Humulin R U-500 (Conc) Kwikpen 500 unit/mL (3 mL) insulin pen 110 unit subcut TID Qty: 27 RF: 0 Primary Care Provider: Jaime Meyer Chi Referrals: Jaime Meyer Chi, MD [Primary Care Provider] - (And/your your commercial kitchen service technician after the weekend) Disposition Disposition: Home, Self Care
[2022-01-26 17:41] LABS: Bedside Glucose 50 mg/dL (74-106)
[2022-01-26 17:41] LABS: Bedside Glucose 52 mg/dL (74-106)
[2022-01-26 17:47] LABS: Absolute Lymphocyte Count 0.81 X10^3/uL (0.83-4.51); Absolute Neutrophil Count 16.3 X10^3/uL (2.0-7.7); Basophil# 0.07 X10^3/uL; Basophil% 0.4 % (0-1); Hematocrit 55.1 % (40-54); Hemoglobin 17.4 g/dL (13.0-16.5); Lymphocyte # 0.81 X10^3/ul (0.83-4.51); Lymphocyte % 4.4 % (19-41); Mean Corp Hgb Conc 31.6 g/dL (32-36); Mean Corpuscular Hgb 27.9 pg (27.0-32.0); Mean Corpuscular Volume 88.3 fL (80-94); Mean Platelet Vol. 10.6 fl (6.2-12.0); Monocyte# 0.99 X10^3/uL; Monocyte% 5.4 % (0-10); NRBC Flagged by Analyzer 0 % (0-5); Neutrophil # 16.32 X10^3/uL (2.7-7.7); Neutrophil % 88.8 % (47-70); Platelet Count 307 K/mm3 (150-450); RBC Distribution Width CV 17.1 % (11.6-14.6); RBC Distribution Width SD 51.4 fl (35.1-43.9); Red Blood Count 6.24 M/mm3 (4.6-6.2); White Blood Count 18.4 K/mm3 (4.4-11.0)
[2022-01-26 18:01] LABS: Anion Gap 7 (5-15); BUN 11 mg/dL (7-18); BUN/Creat Ratio 14.3 RATIO (10-20); Calcium,Total 9.4 mg/dL (8.5-10.1); Chloride 108 mmol/L (98-107); Creatinine, Serum 0.77 mg/dL (0.70-1.30); EST Glomerular Filtration Rate 108 mL/min (>60); Est Glom Filt Rate - Afr Amer 130 mL/min (>60); Estimated Creatinine Clearance 108.09 ml/min; Glucose 52 mg/dL (74-106); Potassium 4.5 mmol/L (3.5-5.1); Sodium Level 141 mmol/L (136-145)
[2022-01-26 18:11] VITALS: BP 136/69; PULSE 92; RESP 18; O2SAT 95
[2022-01-26 18:21] LABS: Bedside Glucose 105 mg/dL (74-106)
[2022-01-26 19:26] LABS: Bedside Glucose 145 mg/dL (74-106)
--- NOTE | 2022-01-29 16:16 | CM.ED ---
ER RNCM DC F/u Call: ED Visit 01/26/22 for Hypoglycemia Called patient's listed cell number. Patient answered and this policy writer typist introduced self and role. Patient states that he has been doing good and that his blood sugar has been maintaining. Has been checking his blood sugar more often approx 9times/day. States only once was it low and not emergency low- just ate some peanut butter and orange juice and it came up. Denies any further issues or concerns. Andrea Shaikh RNCM
== END 2022-01-26 19:49 | disposition home or self-care (01) ==
PROVIDERS: Emergency Provider Emergency Medicine; PCP Family Medicine Geriatric Medicine; Visit Provider Emergency Medicine
DX: E11.649 Type 2 diabetes mellitus with hypoglycemia without coma (principal); E11.22 Type 2 diabetes mellitus with diabetic chronic kidney disease; I73.9 Peripheral vascular disease, unspecified; Z79.4 Long term (current) use of insulin; F17.210 Nicotine dependence, cigarettes, uncomplicated; N18.2 Chronic kidney disease, stage 2 (mild); G47.33 Obstructive sleep apnea (adult) (pediatric); I12.9 Hypertensive chronic kidney disease with stage 1 through stage 4 chronic kidney disease, or unspecified chronic kidney disease; E78.5 Hyperlipidemia, unspecified; Z99.89 Dependence on other enabling machines and devices
CPT/HCPCS: 80048; 82962; 85025; 99285; A4216

== ENCOUNTER 2022-02-06 14:45 | Outpatient (RCR) | payer MEDICARE, MEDICAID, SELFPAY ==
[2022-01-20 00:27] VITALS: BP 152/67; PULSE 78; RESP 16; TEMP 36.1; BMI 48.5
[2022-01-23 12:59] VITALS: BP 151/73; PULSE 74; RESP 18; TEMP 36.4; BMI 48.5
--- NOTE | 2022-01-23 15:15 | PN.PCM_ITS ---
History of Present Illness Date of Service: 01/23/22 Chief Complaint: Diabetic left foot ulceration, [place] Grade 3 History of Wound: This 66-year-old male with multiple comorbidities was seen today for left foot ulcer that is very chronic. He was also seen for right leg ulcer. He denies diarrhea, fever, chill, nausea, vomiting. He denies redness or odor. He denies calf pain. He has debility and difficulty walking. He feels like he has been losing his conditioning and is amenable to work with the physical therapist. He was trying to get approved for an electric wheelchair in which he was successful. However the parts are still on back order. He denies wearing off his offloading boots for knee roller. He was also amendable to have a cast applied to go today. Progress of Wound: Stable Objective Data Objective Data Vital Signs: Vital Signs Temp Pulse Resp BP 97.5 F L 74 18 151/73 H 01/23/22 12:59 01/23/22 12:59 01/23/22 12:59 01/23/22 12:59 Oxygen Delivery Method Room Air Weight: 147.418 kg Body Mass Index (BMI) 48.5 Physical Exam Extremity Extremity Narrative: No calf tenderness Diminished pulses Left transmetatarsal amputation Muscle wasting noted Skin Skin Narrative: no purulence, no streaking, no odor, no infection. Bilateral lower extremity skin is atrophic and hairless. Left plantar foot ulcer granular base tissue without devitalized central location. The peripheral ulcer callus has excessive formation and some hemorrhagic bleeding today. No maceration, necrosis or infection. Neuro Neuro Narrative: lack of normal epicritic sensation via light touch is consistent with neuropathy status Debridement Note Debridement Note Wound debrided: left foot Wound Grade/Stage: 1 Type of Debridement: Excisional debridement Anesthesia Used: 4% Lidocaine Solution Depth: in the subcutaneous layer Percentage of wound debrided: 100 Instrument Used: #15 blade Tissue Removed: fibrous, devitalized subcutaneous, biofilm, slough Severity: Fat Layer Exposed Amount of bleeding with debridement: Mild Bleeding Controlled with: Pressure Patient tolerated procedure: Patient tolerated procedure well Post-Debridement Measurements and Additional Note: Post-Debridement Measurements/Treatment UZIEL - Nurse 1 - General Ulcer Assessment Start: 01/23/22 12:57 Freq: Status: Active Protocol: MARIA ESTHER Activity Type Activity Date Activity User E-Sign Co-Sign Detail Recorded Client Recorded Date Recorded By Document 01/23/22 12:59 DL [id number] 01/23/22 13:02 DL 01/23/22 12:59 WC - Today's Visit Information Type of service Follow-up 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 ) Arrival Mode Ambulatory Transfer Assistance None Patient Identification Verified (Name & Yes ) Patient Requires Transmission-Based No Precautions Height and Weight Body Mass Index (BMI) 48.5 BMI Classification Obese Vital Signs Temperature (97.8 F-99.1 F) 97.5 F L Temperature Source Temporal Pulse Rate (60-100) 74 Pulse Location Monitor Respiratory Rate (12-18) 18 Respiratory rate source Observation Oxygen Delivery Method Room Air Blood Pressure (90/60-120/80) 151/73 H Blood Pressure Mean (mm Hg) 99 Source Monitor Position Sitting Blood Pressure Location Right Forearm History Since Last Visit- (Skip if this is Patient's initial visit) Have you changed medications since your No last visit? Any new allergies or adverse reactions No Had a fall/change in ADL's that may No increase risk of falls Signs or symptoms of abuse and/or No neglect since last visit Have you been in the hospital since your No last visit? Has dressing in place as prescribed Yes Has compression in place as prescribed No Has offloadiing in place as prescribed N/A Experienced any changes in pain level or No management Left Footwear Diabetic Shoe Right Footwear Diabetic Shoe Pain Scale: 0-10 Numeric Is Patient Pain Free? Yes - Nurse 1 - General Ulcer Measurement Start: 01/23/22 12:57 Freq: Status: Active Protocol: Activity Type Activity Date Activity User E-Sign Co-Sign Detail Recorded Client Recorded Date Recorded By Document 01/23/22 12:59 [id number] 01/23/22 13:02 DL 01/23/22 12:59 Wound Center Nurse 1 #20- R BRYANT -Combined with other wound No -Current Size (cm) - Length 0.1 -Current Size (cm) - Width 0.1 -Current Size (cm) - Depth 0.1 -Total Square Cm 0.01 -Epithelialization Large 67-100% #13 LEFT MEDIAL PLANTAR -Combined with other wound No -Current Size (cm) - Length 2.8 -Current Size (cm) - Width 2.3 -Current Size (cm) - Depth 0.5 -Total Square Cm 6.44 -Photo Taken No -Epithelialization None Present -Tunneling No -Undermining/Tunneling No -Circular Undermining No -Exudate Amt Medium -Exudate Type Serosanguineous -Wound Margin Distinct, Outline Attached -Granulation Amt Large (67-100%) -Granulation Quality Red -Slough/Fibrin No -Necrosis Amt None Present (0 %) -Texture (Maria M-wound Skin Appearance) Callus,Scarring -Moisture (Maria M-wound Skin Appearance) Assessed,Dry/ Scaly -Color (Maria M-wound Skin Appearance) Assessed -Temperature (Maria M-wound Skin No Abnormality Appearance) (Pt Warm) -Tenderness on Palpation (Maria M-wound No Skin Appearance) -Ulcer Cleansing Rinsed/ Irrigated with Saline -Foul Odor after Cleansing Yes, Due to Product Use -Anesthetic Used 4% Lidocaine Solution WC - Nurse 2 - General Ulcer CM Notes Start: 01/23/22 12:57 Freq: Status: Active Protocol: Activity Type Activity Date Activity User E-Sign Co-Sign Detail Recorded Client Recorded Date Recorded By Document 01/23/22 13:12 CASSY [id number] 01/23/22 13:19 CASSY 01/23/22 13:12 Wound Center Nurse 2 #20- R BRYANT -Correct Patient No -Correct Side, Site, Position No -Correct Procedure No -Procedure Performed No -Post Debridement (cm) - Length 0 -Post Debridement (cm) - Width 0 -Post Debridement (cm) - Depth 0 -Total Square (Post) (cm) 0 -Area of Debridement (cm) - Length 0 -Area of Debridement (cm) - Width 0 -Total Square (Area) (cm) 0 -Wound/Ulcer Outcome Healed- Epithelialized #13 LEFT MEDIAL PLANTAR -Time 13:13 -Correct Patient Yes -Correct Side, Site, Position Yes -Correct Procedure Yes -Procedure Performed Yes -Type of Procedure Debridement -Clinical Debridement Subcutaneous -Tissue Removed Subcutaneous -Post Debridement (cm) - Length 2.8 -Post Debridement (cm) - Width 3.0 -Post Debridement (cm) - Depth 0.4 -Total Square (Post) (cm) 8.40 -Area of Debridement (cm) - Length 2.8 -Area of Debridement (cm) - Width 3.0 -Total Square (Area) (cm) 8.40 -Tunneling No -Undermining/Tunneling No -Circular Undermining No -Wound/Ulcer Outcome Not Healed -Ulcer Cleansing Rinsed/ Irrigated with Saline -Foul Odor after Cleansing No -Bioengineered Tissue No -Bleeding Controlled with Pressure -Treatment Response Procedure Tolerated Well -Offloading Yes -Type of Offloading Total Contact Cast (TCC) - Left ($) -Assistive Device(s) Walker -Debridement - Subq, 1st 20sq cm Yes Pain Scale: 0-10 Numeric Is Patient Pain Free? 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: CODE(S): L97.912 - Non-pressure chronic ulcer of unspecified part of right lower leg with fat layer exposed (2) Non-pressure chronic ulcer of other part of left foot with fat layer exposed: CODE(S): L97.522 - Non-pressure chronic ulcer of other part of left foot with fat layer exposed (3) Type 2 diabetes mellitus with diabetic polyneuropathy: CODE(S): E11.42 - Type 2 diabetes mellitus with diabetic polyneuropathy QUALIFIERS: Diabetes mellitus termite inspector insulin use: without fdc use Qualified Code(s): E11.42 - Type 2 diabetes mellitus with diabetic polyneuropathy (4) Debility: CODE(S): R53.81 - Other malaise (5) Localized edema: CODE(S): R60.0 - Localized edema (6) Localized edema: CODE(S): R60.0 - Localized edema PLAN: I reviewed and discussed his case. Subcutaneous excisional debridement was performed as noted in the clinical panel to the left foot. Edema noted and has been addressed. To elevate and reduce salt intake. Total contact cast will also help with this. To change left foot ulcer daily with aquacell ag gauze. It is noted he had prior advanced wound healing product application and total contact cast applications. To continue diabetic [place]. He is amendable to have total contact cast applied today to the left lower extremity. Verbal consent was obtained. This was applied according to standard protocol in a rectus position and well-padded manner. He tolerated this well. He was advised to keep it clean dry and intact until follow-up next week. To use assistive walking device. I discussed the need for serious offloading for limb salvage purposes. He has tried various shoes and walking boots. He has struggled with the use of such as a walker of a knee roller and has impaired gait. An electric power wheelchair (extra width-heavy duty) is also an option and at this time I recommend this. Per the patient, this was recently approved he was advised to proceed forward with getting the device to ensure he is able to offload. He also previously installed a ramp at his home to accommodate home entry. His noninvasive vascular studies were reviewed from 05-04-2020 which were normal and intervention was previously not recommended. Urine he had bilateral arterial duplex and was advised to follow-up 1 year for updated exam. I reviewed Dr. Bonilla's note from June 14, 2020. To continue to work on decreasing glucose levels. He has a history of hyperglycemia. His last A1c was 8.8% in October 2020. To continue follow-up with primary care physician. To continue to follow-up with nutritional services. To continue to follow-up as advised. It is noted he is eating a limited amount of whole foods; I recommend st arting with at least 5-10 each day. Some examples were provided. He is currently making adjustments with his nutritional habits. He also follows up with human relations teacher, Dr. Arteaga, who is working with him to reduce his hemoglobin A1c with medication and behavioral changes. Smoking cessation was discussed in detail and he was advised on the healing impairment associated with this. To continue with his smoking cessation program. He denies current tobacco use. I also recommend discontinuation of nicotine products for this also contributes to small vessel contraction. He elects to continue. The following options exist: Proceeding with a palliative wound care plan which he follows up every 2 weeks and the goal is to keep the ulcers noninfected and stable, below-knee amputation, revision transmetatarsal amputation with rotational skin flap. Prognosis is guarded with ongoing glucose elevation and inability to comply with nonweightbearing standards. He is hopeful that wheelchair with aid offloading goals. I answered all of his questions today. To return to clinic in 1 week with physician, or call sooner if questions, concerns, or progressive worsening. His deconditioning, walking difficulty and debility are noted. We discussed this at length today and I recommend physical therapy referral. He may be able to get this set up with home health and an order was provided. The purpose of this is to improve conditioning and prevent falls and injuries. Note: [employer]olade[employer] speech recognition extractor and wringer operator software was used to create portions of this document. Sound-alike and misspelled words, as well as other extractor and wringer operator errors may be contained in the documentation. 23 minutes was spent on this encounter. This included face to face and non face to face care including preparing for the visit, reviewing the history, performing the exam, counseling and providing education to the patient, family, or caregiver, ordering medications/test/ procedures if indicated as documented, communicating with other healthcare providers, documenting information in the medical record, interpreting / sharing this information when indicated as documented, and care coordination.
[2022-01-30 10:31] VITALS: BP 155/77; PULSE 77; RESP 18; TEMP 36.3; BMI 48.5
--- NOTE | 2022-01-30 21:37 | PN.PCM_ITS ---
History of Present Illness Date of Service: 01/30/22 Chief Complaint: Diabetic left foot ulceration, [place] Grade 3 History of Wound: This 66-year-old male with multiple comorbidities was seen today for left foot ulcer that is very chronic. He was also seen for right leg ulcer. He denies diarrhea, fever, chill, nausea, vomiting. He denies redness or odor. He denies calf pain. He has debility and difficulty walking. He feels like he has been losing his conditioning and is amenable to work with the physical therapist. He was trying to get approved for an electric wheelchair in which he was successful. However the parts are still on back order. He was also amendable to have a cast applied to the left lower extremity today. Progress of Wound: improving with decreased ulcer depth Objective Data Objective Data Vital Signs: Vital Signs Temp Pulse Resp BP 97.3 F L 77 18 155/77 H 01/30/22 10:31 01/30/22 10:31 01/30/22 10:31 01/30/22 10:31 Oxygen Delivery Method Room Air Weight: 147.418 kg Body Mass Index (BMI) 48.5 Physical Exam Extremity Extremity Narrative: No calf tenderness Diminished pulses Left transmetatarsal amputation Muscle wasting noted Skin Skin Narrative: no purulence, no streaking, no odor, no infection. Bilateral lower extremity skin is atrophic and hairless. Left plantar foot ulcer granular base tissue without devitalized central location. The peripheral ulcer callus has excessive formation and some hemorrhagic bleeding today. No maceration, necrosis or infection. Neuro Neuro Narrative: lack of normal epicritic sensation via light touch is consistent with neuropathy status Debridement Note Debridement Note Wound debrided: left foot Wound Grade/Stage: 1 Type of Debridement: Excisional debridement Anesthesia Used: 4% Lidocaine Solution Depth: in the subcutaneous layer Percentage of wound debrided: 100 Instrument Used: #15 blade Tissue Removed: fibrous, devitalized subcutaneous, biofilm, slough Severity: Fat Layer Exposed Amount of bleeding with debridement: Mild Bleeding Controlled with: Pressure Patient tolerated procedure: Patient tolerated procedure well Post-Debridement Measurements and Additional Note: Post-Debridement Measurements/Treatment UZIEL - Nurse 1 - General Ulcer Assessment Start: 01/23/22 12:57 Freq: Status: Active Protocol: MARIA ESTHER Activity Type Activity Date Activity User E-Sign Co-Sign Detail Recorded Client Recorded Date Recorded By Document 01/23/22 12:59 DL [id number] 01/23/22 13:02 DL Document 01/30/22 10:31 RB [id number] 01/30/22 10:46 RB 01/23/22 01/30/22 12:59 10:31 - Today's Visit Information Type of service Follow-up Visit Follow-up Visit (Physician/WATER MECHANIC (Physician/WATER MECHANIC ) ) Arrival Mode Ambulatory Cane,Wheelchair Transfer Assistance None Manual Patient Identification Verified (Name & Yes Yes ) Patient Requires Transmission-Based No No Precautions Finger Stick Blood Sugar(mg/dl) (if 189 indicated): Blood Sugar Stated by Patient Height and Weight Body Mass Index (BMI) 48.5 48.5 BMI Classification Obese Obese Vital Signs Temperature (97.8 F-99.1 F) 97.5 F L 97.3 F L Temperature Source Temporal Temporal Pulse Rate (60-100) 74 77 Pulse Location Monitor Monitor Respiratory Rate (12-18) 18 18 Respiratory rate source Observation Observation Oxygen Delivery Method Room Air Blood Pressure (90/60-120/80) 151/73 H 155/77 H Blood Pressure Mean (mm Hg) 99 103 Source Monitor Monitor Position Sitting Sitting Blood Pressure Location Right Forearm Left Arm History Since Last Visit- (Skip if this is Patient's initial visit) Have you changed medications since your No No last visit? Any new allergies or adverse reactions No No Had a fall/change in ADL's that may No No increase risk of falls Signs or symptoms of abuse and/or No No neglect since last visit Have you been in the hospital since your No No last visit? Has dressing in place as prescribed Yes Yes Has compression in place as prescribed No No Has offloadiing in place as prescribed N/A Yes Experienced any changes in pain level or No No management Left Footwear Diabetic Shoe Total Contact Cast Right Footwear Diabetic Shoe Pain Scale: 0-10 Numeric Is Patient Pain Free? Yes Yes - Nurse 1 - General Ulcer Measurement Start: 01/23/22 12:57 Freq: Status: Active Protocol: Activity Type Activity Date Activity User E-Sign Co-Sign Detail Recorded Client Recorded Date Recorded By Document 01/23/22 12:59 DL [id number] 01/23/22 13:02 DL Document 01/30/22 10:31 RB [id number] 01/30/22 10:46 RB 01/23/22 01/30/22 12:59 10:31 Wound Center Nurse 1 #20- R BRYANT -Combined with other wound No -Current Size (cm) - Length 0.1 -Current Size (cm) - Width 0.1 -Current Size (cm) - Depth 0.1 -Total Square Cm 0.01 -Epithelialization Large 67-100% #13 LEFT MEDIAL PLANTAR -Combined with other wound No No -Current Size (cm) - Length 2.8 2.9 -Current Size (cm) - Width 2.3 2.3 -Current Size (cm) - Depth 0.5 0.2 -Total Square Cm 6.44 6.67 -Photo Taken No -Epithelialization None Present -Tunneling No No -Undermining/Tunneling No No -Circular Undermining No No -Exudate Amt Medium Medium -Exudate Type Serosanguineous Serosanguineous -Wound Margin Distinct, Thickened Outline Attached -Granulation Amt Large (67-100%) Medium (34-66%) -Granulation Quality [place] -Slough/Fibrin No Yes -Necrosis Amt None Present (0 Medium (34-66%) %) -Necrotic Tissue Type Adherent Slough -Texture (Maria M-wound Skin Appearance) Callus,Scarring Callus -Moisture (Maria M-wound Skin Appearance) Assessed,Dry/ Assessed Scaly -Color (Maria M-wound Skin Appearance) Assessed Assessed -Temperature (Maria M-wound Skin No Abnormality No Abnormality Appearance) (Pt Warm) (Pt Warm) -Tenderness on Palpation (Maria M-wound No No Skin Appearance) -Ulcer Cleansing Rinsed/ Wound Cleanser Irrigated with Saline -Foul Odor after Cleansing Yes, Due to No Product Use -Anesthetic Used 4% Lidocaine 4% Lidocaine Solution Solution WC - Nurse 2 - General Ulcer CM Notes Start: 01/23/22 12:57 Freq: Status: Active Protocol: Activity Type Activity Date Activity User E-Sign Co-Sign Detail Recorded Client Recorded Date Recorded By Document 01/23/22 13:12 CASSY [id number] 01/23/22 13:19 Document 01/30/22 10:56 CASSY [id number] 01/30/22 10:58 CASSY 01/23/22 01/30/22 13:12 10:56 Wound Center Nurse 2 #20- R BRYANT -Correct Patient No -Correct Side, Site, Position No -Correct Procedure No -Procedure Performed No -Post Debridement (cm) - Length 0 -Post Debridement (cm) - Width 0 -Post Debridement (cm) - Depth 0 -Total Square (Post) (cm) 0 -Area of Debridement (cm) - Length 0 -Area of Debridement (cm) - Width 0 -Total Square (Area) (cm) 0 -Wound/Ulcer Outcome Healed- Epithelialized #13 LEFT MEDIAL PLANTAR -Time 13:13 10:57 -Correct Patient Yes Yes -Correct Side, Site, Position Yes Yes -Correct Procedure Yes Yes -Procedure Performed Yes Yes -Type of Procedure Debridement Debridement -Clinical Debridement Subcutaneous Subcutaneous -Tissue Removed Subcutaneous Subcutaneous -Post Debridement (cm) - Length 2.8 3 -Post Debridement (cm) - Width 3.0 2.4 -Post Debridement (cm) - Depth 0.4 0.3 -Total Square (Post) (cm) 8.40 7.2 -Area of Debridement (cm) - Length 2.8 3.0 -Area of Debridement (cm) - Width 3.0 2.4 -Total Square (Area) (cm) 8.40 7.20 -Tunneling No No -Undermining/Tunneling No No -Circular Undermining No No -Wound/Ulcer Outcome Not Healed Not Healed -Ulcer Cleansing Rinsed/ Rinsed/ Irrigated with Irrigated with Saline Saline -Foul Odor after Cleansing No No -Bioengineered Tissue No No -Bleeding Controlled with Pressure Pressure -Treatment Response Procedure Procedure Tolerated Well Tolerated Well -Offloading Yes Yes -Type of Offloading Total Contact Total Contact Cast (TCC) - Cast (TCC) - Left ($) Left ($) -Assistive Device(s) Walker -Debridement - Subq, 1st 20sq cm Yes Yes Pain Scale: 0-10 Numeric Is Patient Pain Free? Yes Yes Assessment/Plan Assessment/Plan (1) Non-pressure chronic ulcer of other part of left foot with fat layer exposed: CODE(S): L97.522 - Non-pressure chronic ulcer of other part of left foot with fat layer exposed (2) Type 2 diabetes mellitus with diabetic polyneuropathy: CODE(S): E11.42 - Type 2 diabetes mellitus with diabetic polyneuropathy QUALIFIERS: Diabetes mellitus correction insulin use: without long lines operator use Qualified Code(s): E11.42 - Type 2 diabetes mellitus with diabetic polyneuropathy (3) Debility: CODE(S): R53.81 - Other malaise (4) Localized edema: CODE(S): R60.0 - Localized edema PLAN: I reviewed and discussed his case. Subcutaneous excisional debridement was performed as noted in the clinical panel to the left foot. Edema noted and has been addressed. To elevate and reduce salt intake. Total contact cast will also help with this. To change left foot ulcer daily with aquacell ag gauze. It is noted he had prior advanced wound healing product application and total contact cast applications. To continue diabetic [place]. He is amendable to have total contact cast applied today to the left lower extremity. Verbal consent was obtained. This was applied according to standard protocol in a rectus position and well-padded manner. He tolerated this well. He was advised to keep it clean dry and intact until follow-up next week. To use assistive walking device. I discussed the need for serious offloading for limb salvage purposes. He has tried various shoes and walking boots. He has struggled with the use of such as a walker of a knee roller and has impaired gait. An electric power wheelchair (extra width-heavy duty) is also an option and at this time I recommend this. Per the patient, this was recently approved he was advised to proceed forward with getting the device to ensure he is able to offload. He also previously installed a ramp at his home to accommodate home entry. His noninvasive vascular studies were reviewed from 05-04-2020 which were normal and intervention was previously not recommended. Urine he had bilateral arterial duplex and was advised to follow-up 1 year for updated exam. I reviewed Dr. Bonilla's note from June 14, 2020. To continue to work on decreasing glucose levels. He has a history of hyperglycemia. His last A1c was 8.8% in October 2020. To continue follow-up with primary care physician. To continue to follow-up with nutritional services. To continue to follow-up as advised. It is noted he is eating a limited amount of whole foods; I recommend st arting with at least 5-10 each day. Some examples were provided. He is currently making adjustments with his nutritional habits. He also follows up with fixed capital clerk, Dr. Arteaga, who is working with him to reduce his hemoglobin A1c with medication and behavioral changes. Smoking cessation was discussed in detail and he was advised on the healing impairment associated with this. To continue with his smoking cessation program. He denies current tobacco use. I also recommend discontinuation of nicotine products for this also contributes to small vessel contraction. He elects to continue. The following options exist: Proceeding with a palliative wound care plan which he follows up every 2 weeks and the goal is to keep the ulcers noninfected and stable, below-knee amputation, revision transmetatarsal amputation with rotational skin flap. Prognosis is guarded with ongoing glucose elevation and inability to comply with nonweightbearing standards. He is hopeful that wheelchair with aid offloading goals. I answered all of his questions today. To return to clinic in 1 week with physician, or call sooner if questions, concerns, or progressive worsening. His deconditioning, walking difficulty and debility are noted. We discussed this at length today and I recommend physical therapy referral. He may be able to get this set up with home health and an order was provided. The purpose of this is to improve conditioning and prevent falls and injuries. Note: [employer] speech recognition service delivery director software was used to create portions of this document. Sound-alike and misspelled words, as well as other service delivery director errors may be contained in the documentation.
[2022-02-06 15:04] VITALS: BP 154/83; PULSE 91; RESP 20; TEMP 36; BMI 48.5
--- NOTE | 2022-02-06 15:43 | PCM.WC.PN ---
History of Present Illness Date of Service: 02/06/22 Chief Complaint: Diabetic left foot ulceration, [place] Grade 3 History of Wound: This 66-year-old male with multiple comorbidities was seen today for left foot ulcer that is very chronic. He was also seen for right leg ulcer. He denies diarrhea, fever, chill, nausea, vomiting. He denies redness or odor. He denies calf pain. He has debility and difficulty walking. He feels like he has been losing his conditioning and is amenable to work with the physical therapist. He was trying to get approved for an electric wheelchair in which he was successful. However the parts are still on back order. He was also amendable to have a cast applied to the left lower extremity today. Progress of Wound: improving with decreased ulcer depth Objective Data Objective Data Vital Signs: Vital Signs Temp Pulse Resp BP 96.8 F L 91 20 H 154/83 H 02/06/22 15:04 02/06/22 15:04 02/06/22 15:04 02/06/22 15:04 Oxygen Delivery Method Room Air Weight: 147.418 kg Body Mass Index (BMI) 48.5 Physical Exam Extremity Extremity Narrative: No calf tenderness Diminished pulses Left transmetatarsal amputation Muscle wasting noted Skin Skin Narrative: no purulence, no streaking, no odor, no infection. Bilateral lower extremity skin is atrophic and hairless. Left plantar foot ulcer granular base tissue without devitalized central location. The peripheral ulcer callus has excessive formation and some hemorrhagic bleeding today. No maceration, necrosis or infection. Neuro Neuro Narrative: lack of normal epicritic sensation via light touch is consistent with neuropathy status Debridement Note Debridement Note Wound debrided: left foot Wound Grade/Stage: 1 Type of Debridement: Excisional debridement Anesthesia Used: 4% Lidocaine Solution Depth: in the subcutaneous layer Percentage of wound debrided: 100 Instrument Used: #15 blade Tissue Removed: fibrous, devitalized subcutaneous, biofilm, slough Severity: Fat Layer Exposed Amount of bleeding with debridement: Mild Bleeding Controlled with: Pressure Patient tolerated procedure: Patient tolerated procedure well Post-Debridement Measurements and Additional Note: Post-Debridement Measurements/Treatment UZIEL - Nurse 1 - General Ulcer Assessment Start: 01/23/22 12:57 Freq: Status: Active Protocol: MARIA ESTHER Activity Type Activity Date Activity User E-Sign Co-Sign Detail Recorded Client Recorded Date Recorded By Document 01/23/22 12:59 DL [id number] 01/23/22 13:02 DL Document 01/30/22 10:31 RB [id number] 01/30/22 10:46 RB Document 02/06/22 15:04 PL [id number] 02/06/22 15:17 PL 01/23/22 01/30/22 02/06/22 12:59 10:31 15:04 WC - Today's Visit Information Type of service Follow-up Visit Follow-up Visit Follow-up Visit (Physician/VETERINARIAN ASSISTANT (Physician/VETERINARIAN ASSISTANT (Physician/VETERINARIAN ASSISTANT ) ) ) Arrival Mode Ambulatory Cane,Wheelchair Cane Transfer Assistance None Manual None Patient Identification Verified (Name & Yes Yes Yes ) Patient Requires Transmission-Based No No No Precautions Safety Precautions NA Finger Stick Blood Sugar(mg/dl) (if 189 indicated): Blood Sugar Stated by Patient Height and Weight Body Mass Index (BMI) 48.5 48.5 48.5 BMI Classification Obese Obese Obese Vital Signs Temperature (97.8 F-99.1 F) 97.5 F L 97.3 F L 96.8 F L Temperature Source Temporal Temporal Temporal Pulse Rate (60-100) 74 77 91 Pulse Location Monitor Monitor Respiratory Rate (12-18) 18 18 20 H Respiratory rate source Observation Observation Oxygen Delivery Method Room Air Blood Pressure (90/60-120/80) 151/73 H 155/77 H 154/83 H Blood Pressure Mean (mm Hg) 99 103 106 Source Monitor Monitor Position Sitting Sitting Blood Pressure Location Right Forearm Left Arm History Since Last Visit- (Skip if this is Patient's initial visit) Have you changed medications since your No No No last visit? Any new allergies or adverse reactions No No No Had a fall/change in ADL's that may No No No increase risk of falls Signs or symptoms of abuse and/or No No No neglect since last visit Have you been in the hospital since your No No No last visit? Has dressing in place as prescribed Yes Yes Yes Has compression in place as prescribed No No N/A Has offloadiing in place as prescribed N/A Yes Yes Experienced any changes in pain level or No No No management Left Footwear Diabetic Shoe Total Contact Cast Right Footwear Diabetic Shoe Pain Scale: 0-10 Numeric Is Patient Pain Free? Yes Yes Yes - Nurse 1 - General Ulcer Measurement Start: 01/23/22 12:57 Freq: Status: Active Protocol: Activity Type Activity Date Activity User E-Sign Co-Sign Detail Recorded Client Recorded Date Recorded By Document 01/23/22 12:59 DL [id number] 01/23/22 13:02 DL Document 01/30/22 10:31 RB [id number] 01/30/22 10:46 RB Document 02/06/22 15:[address] PL [id number] 02/06/22 15:17 PL 01/23/22 01/30/22 02/06/22 12:59 10:31 15:04 Wound Center Nurse 1 #20- R BRYANT -Combined with other wound No -Current Size (cm) - Length 0.1 -Current Size (cm) - Width 0.1 -Current Size (cm) - Depth 0.1 -Total Square Cm 0.01 -Epithelialization Large 67-100% #13 LEFT MEDIAL PLANTAR -Combined with other wound No No No -Current Size (cm) - Length 2.8 2.9 1.2 -Current Size (cm) - Width 2.3 2.3 1.2 -Current Size (cm) - Depth 0.5 0.2 0.2 -Total Square Cm 6.44 6.67 1.44 -Photo Taken No No -Epithelialization None Present Large 67-100% -Tunneling No No No -Undermining/Tunneling No No No -Circular Undermining No No No -Classification - Thickness Partial Thickness -Exudate Amt Medium Medium Large -Exudate Type Serosanguineous Serosanguineous Serosanguineous -Wound Margin Distinct, Thickened Outline Attached -Granulation Amt Large (67-100%) Medium (34-66%) Large (67-100%) -Granulation Quality Red [place] Pale,[place] -Slough/Fibrin No Yes Yes -Necrosis Amt None Present (0 Medium (34-66%) Small (1-33%) %) -Necrotic Tissue Type Adherent Slough Adherent Slough -Texture (Maria M-wound Skin Appearance) Callus,Scarring Callus No Abnormality -Moisture (Maria M-wound Skin Appearance) Assessed,Dry/ Assessed No Abnormality Scaly -Color (Maria M-wound Skin Appearance) Assessed Assessed No Abnormality -Temperature (Maria M-wound Skin No Abnormality No Abnormality Appearance) (Pt Warm) (Pt Warm) -Tenderness on Palpation (Maria M-wound No No No Skin Appearance) -Ulcer Cleansing Rinsed/ Wound Cleanser Soap and Water Irrigated with Saline -Foul Odor after Cleansing Yes, Due to No No Product Use -Anesthetic Used 4% Lidocaine 4% Lidocaine Solution Solution WC - Nurse 2 - General Ulcer CM Notes Start: 01/23/22 12:57 Freq: Status: Active Protocol: Activity Type Activity Date Activity User E-Sign Co-Sign Detail Recorded Client Recorded Date Recorded By Document 01/23/22 13:12 [id number] 01/23/22 13:19 Document 01/30/22 10:56 [id number] 01/30/22 10:58 Document 02/06/22 15:25 [id number] 02/06/22 15:27 01/23/22 01/30/22 02/06/22 13:12 10:56 15:25 Wound Center Nurse 2 #20- R BRYANT -Correct Patient No -Correct Side, Site, Position No -Correct Procedure No -Procedure Performed No -Post Debridement (cm) - Length 0 -Post Debridement (cm) - Width 0 -Post Debridement (cm) - Depth 0 -Total Square (Post) (cm) 0 -Area of Debridement (cm) - Length 0 -Area of Debridement (cm) - Width 0 -Total Square (Area) (cm) 0 -Wound/Ulcer Outcome Healed- Epithelialized #13 LEFT MEDIAL PLANTAR -Time 13:13 10:57 15:25 -Correct Patient Yes Yes Yes -Correct Side, Site, Position Yes Yes Yes -Correct Procedure Yes Yes Yes -Procedure Performed Yes Yes Yes -Type of Procedure Debridement Debridement Debridement -Clinical Debridement Subcutaneous Subcutaneous Subcutaneous -Tissue Removed Subcutaneous Subcutaneous Subcutaneous -Post Debridement (cm) - Length 2.8 3 2.3 -Post Debridement (cm) - Width 3.0 2.4 2.3 -Post Debridement (cm) - Depth 0.4 0.3 0.2 -Total Square (Post) (cm) 8.40 7.2 5.29 -Area of Debridement (cm) - Length 2.8 3.0 2.3 -Area of Debridement (cm) - Width 3.0 2.4 2.3 -Total Square (Area) (cm) 8.40 7.20 5.29 -Tunneling No No No -Undermining/Tunneling No No -Circular Undermining No No No -Wound/Ulcer Outcome Not Healed Not Healed Not Healed -Ulcer Cleansing Rinsed/ Rinsed/ Rinsed/ Irrigated with Irrigated with Irrigated with Saline Saline Saline -Foul Odor after Cleansing No No No -Bioengineered Tissue No No No -Bleeding Controlled with Pressure Pressure Pressure -Treatment Response Procedure Procedure Procedure Tolerated Well Tolerated Well Tolerated Well -Offloading Yes Yes Yes -Type of Offloading Total Contact Total Contact Camwalker Cast (TCC) - Cast (TCC) - Left ($) Left ($) -Assistive Device(s) Walker -Debridement - Subq, 1st 20sq cm Yes Yes Yes Pain Scale: 0-10 Numeric Is Patient Pain Free? Yes Yes Yes - Nurse 3 - General Ulcer D/C NN Start: 01/23/22 12:57 Freq: Status: Active Protocol: Activity Type Activity Date Activity User E-Sign Co-Sign Detail Recorded Client Recorded Date Recorded By Document 02/06/22 15:37 [facility] [id number] 02/06/22 15:38 [facility] 02/06/22 15:37 Wound Care Nurse 3 #13 LEFT MEDIAL PLANTAR -Ulcer Cleansing Rinsed/ Irrigated with Saline -Foul Odor after Cleansing No -Primary Dressing Applied Other -Other Dressing SALINE MOIST GAUZE -Primary Dressing Covered/Secured with Dry Gauze & Roll Gauze, Secured with Tape,Other -Other Covering ABD Left -Tubular Bandage Single Layer -Size of Tubigrip Used Size E -Size E ($) 1 Treatment Response Procedure Tolerated Well Pain Scale: 0-10 Numeric Is Patient Pain Free? Yes - Visit Discharge Discharge Condition Stable Ambulatory Status Cane,Wheelchair Transportation TRANSPORT Facility Type Home Health Assessment/Plan Assessment/Plan (1) Non-pressure chronic ulcer of other part of left foot with fat layer exposed: CODE(S): L97.522 - Non-pressure chronic ulcer of other part of left foot with fat layer exposed (2) Type 2 diabetes mellitus with diabetic polyneuropathy: CODE(S): E11.42 - Type 2 diabetes mellitus with diabetic polyneuropathy QUALIFIERS: Diabetes mellitus intermediate manager insulin use: without fci use Qualified Code(s): E11.42 - Type 2 diabetes mellitus with diabetic polyneuropathy (3) Debility: CODE(S): R53.81 - Other malaise (4) Localized edema: CODE(S): R60.0 - Localized edema PLAN: I reviewed and discussed his case. Subcutaneous excisional debridement was performed as noted in the clinical panel to the left foot. Edema noted and has been addressed. To elevate and reduce salt intake. Total contact cast will also help with this in the future. To change left foot ulcer daily with aquacell ag gauze. To wash with dakin this week. It is noted he had prior advanced wound healing product application and total contact cast applications. To continue diabetic [place]. He is amendable to have total contact cast applied today to the left lower extremity. There is some mild odor and additional moisture noted and this will be considered next week. I discussed the need for serious offloading for limb salvage purposes. He has tried various shoes and walking boots. He has struggled with the use of such as a walker of a knee roller and has impaired gait. An electric power wheelchair (extra width-heavy duty) is also an option and at this time I recommend this. Per the patient, this was recently approved he was advised to proceed forward with getting the device to ensure he is able to offload. He also previously installed a ramp at his home to accommodate home entry. His noninvasive vascular studies were reviewed from 05-04-2020 which were normal and intervention was previously not recommended. Urine he had bilateral arterial duplex and was advised to follow-up 1 year for updated exam. I reviewed Dr. Bonilla's note from June 14, 2020. To continue to work on decreasing glucose levels. He has a history of hyperglycemia. His last A1c was 8.8% in October 2020. To continue follow-up with primary care physician. To continue to follow-up with nutritional services. To continue to follow-up as advised. It is noted he is eating a limited amount of whole foods; I recommend st arting with at least 5-10 each day. Some examples were provided. He is currently making adjustments with his nutritional habits. He also follows up with drill press tender, Dr. Arteaga, who is working with him to reduce his hemoglobin A1c with medication and behavioral changes. Smoking cessation was discussed in detail and he was advised on the healing impairment associated with this. To continue with his smoking cessation program. He denies current tobacco use. I also recommend discontinuation of nicotine products for this also contributes to small vessel contraction. He elects to continue. The following options exist: Proceeding with a palliative wound care plan which he follows up every 2 weeks and the goal is to keep the ulcers noninfected and stable, below-knee amputation, revision transmetatarsal amputation with rotational skin flap. Prognosis is guarded with ongoing glucose elevation and inability to comply with nonweightbearing standards. He is hopeful that wheelchair with aid offloading goals. I answered all of his questions today. To return to clinic in 1 week with physician, or call sooner if questions, concerns, or progressive worsening. His deconditioning, walking difficulty and debility are noted. We discussed this at length today and I recommend physical therapy referral. He may be able to get this set up with home health and an order was provided. The purpose of this is to improve conditioning and prevent falls and injuries. Note: [employer] speech recognition manager acute software was used to create portions of this document. Sound-alike and misspelled words, as well as other manager acute errors may be contained in the documentation.
== END 2022-02-19 23:59 | disposition home or self-care (01) ==
LOC: WC 14:45
PROVIDERS: PCP Family Medicine Geriatric Medicine; Referring Provider Podiatrist; Visit Provider Podiatrist
DX: E11.621 Type 2 diabetes mellitus with foot ulcer (principal); L97.522 Non-pressure chronic ulcer of other part of left foot with fat layer exposed; L97.912 Non-pressure chronic ulcer of unspecified part of right lower leg with fat layer exposed; E11.42 Type 2 diabetes mellitus with diabetic polyneuropathy; R53.81 Other malaise; R26.2 Difficulty in walking, not elsewhere classified; R60.0 Localized edema
CPT/HCPCS: 11042; 29445; 36415; 80053; 82306; 84403; 84443; 85025

== ENCOUNTER 2022-02-10 10:10 | Inpatient (IN) | payer MEDICARE, MEDICAID, SELFPAY ==
[2022-02-10] VITALS (19 sets, daily range): BP systolic 114–155; BP diastolic 60–103; PULSE 98–106; RESP 16–26; TEMP 36.2–36.9; O2SAT 93–95; BMI 41.4; BMI 39.6
--- NOTE | 2022-02-10 11:06 | EKG12_ITS ---
Test Reason : HYPERGLCEMIA Blood Pressure : / mmHG Vent. Rate : 103 BPM Atrial Rate : 104 BPM P-R Int : 168 ms QRS Dur : 094 ms QT Int : 356 ms P-R-T Axes : 058 064 062 degrees QTc Int : 466 ms Sinus tachycardia Otherwise normal ECG Confirmed by SULEIMAN VACA, DAWOOD ([id number]), multimedia editor CHERYL EDWARD ([id number]) on 02/11/2022 1:05:06 PM Referred By: PEGGY Confirmed By:DAWOOD BEARDEN MD
--- NOTE | 2022-02-10 11:45 | CT_ITS ---
HISTORY: CONFUSION, FALL. TECHNIQUE: Multiple axial images were obtained of the head without intravenous contrast. A radiation dose optimization technique was used for this scan. 271 images. COMPARISON: None. FINDINGS: BRAIN PARENCHYMA: Multiple foci and zones of low attenuation in the bilateral cerebral white matter compatible with chronic small vessel ischemic gliosis. No acute intra-axial hemorrhage identified. CSF SPACES: Generalized volume loss. No midline shift or other significant mass effect. No acute extra-axial hemorrhage seen. CALVARIUM: Motion artifact without definite acute fracture identified. Small bone island in the left frontal bone. PARANASAL SINUSES AND MASTOID AIR CELLS: Clear. ORBITS: Unremarkable CT/Brain/Head without Contrast IMPRESSION: No acute intracranial process identified. Chronic small vessel ischemic gliosis. Electronically Signed: Dory Hirsch MD at 12:26 EDT ,
--- NOTE | 2022-02-10 11:50 | RAD_ITS ---
HISTORY: pt poor historian, unable to give history, seems confused -- unable to follow breathing instructions -- possible fall. TECHNIQUE: XR Chest 2 Views. COMPARISON: 11/02/2021. FINDINGS: CARDIOMEDIASTINAL BORDERS: Cardiac silhouette borderline-enlarged. Mediastinal contour unremarkable. LUNGS: Mild pulmonary vascular congestion. Mild right basilar opacity. PLEURA: Mild right pleural effusion. OSSEOUS STRUCTURES: Degenerative change. RAD/Chest PA and Lateral IMPRESSION: Mild right basilar opacity, likely atelectasis or pneumonia with mild pleural effusion. Electronically Signed: Dory Hirsch MD at 12:22 EDT ,
--- NOTE | 2022-02-10 11:50 | RAD_ITS ---
HISTORY pt poor historian, unable to give history, seems confused -- unable to straighten arm completely or bend it completely-tech had to hold for images -- possible fall. TECHNIQUE: XR Elbow Min 3 Views. COMPARISON: None. FINDINGS: BONES : No acute fracture identified. Mild osteopenia. Enthesopathy at the epicondyles noted. JOINTS: No dislocation. Mild degenerative change. RAD/Elbow min 3 Views IMPRESSION: No acute fracture or dislocation identified in the right elbow. Electronically Signed: Dory Hirsch MD at 12:20 EDT ,
[2022-02-10 13:47] LABS: ALB/GLOB Ratio 0.7 RATIO (0.9-2.4); AST(SGOT) 216 U/L (15-37); Alanine Aminotransfer ALT/SGPT 47 U/L (16-61); Albumin, Serum 3.3 g/dL (3.2-5.0); Alkaline Phosphatase 87 U/L (45-117); Anion Gap 10 (5-15); BUN 35 mg/dL (7-18); CPK Total, Creatine Kinase 9774 U/L (39-308); Calcium,Total 9.1 mg/dL (8.5-10.1); Chloride 105 mmol/L (98-107); Creatinine, Serum 1.52 mg/dL (0.70-1.30); EST Glomerular Filtration Rate 49 mL/min (>60); Est Glom Filt Rate - Afr Amer 59 mL/min (>60); Globulin 4.8 g/dL (2.2-4.2); Glucose 146 mg/dL (74-106); Potassium 4.6 mmol/L (3.5-5.1); Protein, Total 8.1 g/dL (6.4-8.2); Sodium Level 137 mmol/L (136-145); Troponin-I HS 8 pg/mL (3.0-78.0)
[2022-02-10 13:55] LABS: Absolute Lymphocyte Count 1.72 X10^3/uL (0.83-4.51); Absolute Neutrophil Count 12.3 X10^3/uL (2.0-7.7); Basophil# 0.13 X10^3/uL; Basophil% 0.8 % (0-1); Eosinophil# 0.12 X10^3/uL; Eosinophils% 0.8 % (0-5); Hematocrit 54.7 % (40-54); Lymphocyte # 1.72 X10^3/ul (0.83-4.51); Lymphocyte % 10.9 % (19-41); Mean Corp Hgb Conc 31.1 g/dL (32-36); Mean Corpuscular Hgb 27.7 pg (27.0-32.0); Mean Corpuscular Volume 89.2 fL (80-94); Mean Platelet Vol. 10.6 fl (6.2-12.0); Monocyte# 1.39 X10^3/uL; Monocyte% 8.8 % (0-10); NRBC Flagged by Analyzer 0 % (0-5); Neutrophil # 12.25 X10^3/uL (2.7-7.7); Platelet Count 327 K/mm3 (150-450); RBC Distribution Width CV 16.9 % (11.6-14.6); RBC Distribution Width SD 52.5 fl (35.1-43.9); Red Blood Count 6.13 M/mm3 (4.6-6.2); White Blood Count 15.7 K/mm3 (4.4-11.0)
--- NOTE | 2022-02-10 13:59 | EDS_ITS ---
HPI History of Present Illness Chief Complaint: Weakness Detail of Chief Complaint: AntigenRight-sided weakness lysed weakness since yesterday Informant: patient and family Narrative Narrative: Patient presents to the emergency department with right-sided weakness and generalized weakness since yesterday around 4 PM. Patient apparently had been sitting in his chair since 4 PM yesterday and could not get up. Patient's son found him today at home and was somewhat unresponsive and noted that maybe he had a little bit of facial droop and not using his right side and EMS was called. EMS noted that he had a low blood sugar that just read low. Patient was given glucose. On arrival his glucose has normalized. Patient complaining of right elbow pain. He denies falls or injuries. He denies recent illness. Patient has history of diabetes. 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 Chronic ulcer of left foot with fat layer exposed Chronic ulcer of left foot with necrosis of bone Chronic ulcer of left foot with necrosis of muscle Chronic ulcer of right foot with fat layer exposed Chronic ulcer of right foot with necrosis of muscle Corns and callosities CPAP (continuous positive airway pressure) dependence Debility Delayed wound healing Diabetes mellitus Diabetic infection of left foot Diabetic neuropathy Diabetic polyneuropathy Diabetic ulcer of left foot Difficulty in walking, not elsewhere classified Difficulty walking Erectile dysfunction Fissure in skin of foot HTN (hypertension) Hyperlipidemia Hyperlipidemia Hypertension Hypokalemia Localized edema Localized edema Mixed hyperlipidemia Morbid obesity due to excess calories MRSA (methicillin resistant staph aureus) culture positive Neuropathic pain Non-pressure chronic ulcer of other part of left foot with fat layer exposed Non-pressure chronic ulcer of other part of right foot with fat layer exposed Non-pressure chronic ulcer of right calf with fat layer exposed Non-pressure chronic ulcer of unspecified part of left lower leg with fat layer exposed Obesity Obesity Obstructive sleep apnea Onycholysis Osteomyelitis of great toe of left foot Osteomyelitis of left foot Osteomyelitis of right foot Osteomyelitis, unspecified Other hereditary and idiopathic neuropathies Other specified peripheral vascular diseases Peripheral vascular disease Sleep apnea Smoker 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 Tinea unguium Tobacco abuse Tobacco abuse Tobacco abuse counseling Tobacco dependence due to cigarettes Trauma of toe of right foot Type 2 diabetes mellitus Type 2 diabetes mellitus Type 2 diabetes mellitus with diabetic polyneuropathy Ulcer of left foot with muscle involvement without evidence of necrosis Ulcer of left foot with necrosis of muscle Ulcer of left lower extremity with fat layer exposed Ulcer of right foot with fat layer exposed Ulcer of right foot with fat layer exposed Ulcer of right lower extremity with fat layer exposed Home Medications calcium carbonate 500 mg PO DAILY 06/23/17 [History Last Taken 06/23/17] multivitamin 1 ea PO DAILY 06/23/17 [History Last Taken 06/23/17] atorvastatin 40 mg tablet 40 mg PO DAILY 10/18/19 [History Last Taken 08/31/20 22:39] bupropion HCl 150 mg 24 hr tablet, extended release 150 mg PO BID tab 10/18/19 [History Last Taken 09/01/20 08:27] tamsulosin 0.4 mg capsule 0.4 mg PO DAILY@1730 cap 10/18/19 [History Last Taken 08/31/20 17:28] gabapentin 300 mg capsule 600 mg PO TIDCM cap 04/24/20 [History Last Taken 09/01/20 13:15] aspirin 81 mg tablet,delayed release 81 mg PO DAILY tab 07/28/20 [History Last Taken Unknown] lancets 09/01/20 [History Last Taken Unknown] acetaminophen 1,000 mg PO Q6H PRN tab 10/03/20 [Rx Last Taken Unknown] naproxen 500 mg tablet 500 mg PO BID PRN 10/31/20 [History Last Taken Unknown] blood-glucose transmitter #1 ea 11/30/20 [Rx Last Taken Unknown] blood sugar diagnostic #100 ea 08/06/21 [Rx Last Taken Unknown] flash glucose sensor #2 ea 08/23/21 [Rx Last Taken Unknown] Farxiga 10 mg tablet 10 mg PO DAILY #90 tab NS 09/03/21 [Rx Last Taken Unknown] clindamycin HCl 300 mg PO TID #15 cap 11/05/21 [Rx Last Taken Unknown] pantoprazole 40 mg PO BID #60 tab 11/05/21 [Rx Last Taken Unknown] dulaglutide 0.75 mg/0.5 mL subcutaneous pen injector 0.75 mg SUBCUT QWEEK #2 ml 11/14/21 [Rx Last Taken Unknown] lisinopril 40 mg tablet 40 mg PO DAILY #90 tab 11/21/21 [Rx Last Taken Unknown] Humulin R U-500 (Conc) Kwikpen 500 unit/mL (3 mL) subcutaneous 110 unit SUBCUT TID #27 ml NS 12/25/21 [Rx Last Taken Unknown] Allergy/AdvReac Type Severity Reaction Status Date / Time No Known Allergies Allergy Verified 01/26/22 17:04 Family History Father Myocardial infarction Heart disease Mother Kidney disease Diabetes Sister Asthma Breast cancer Hypertension Brother Alcoholism Melanoma Surgical History History of ankle surgery History of deviated nasal septum History of hernia repair History of oral surgery History of transmetatarsal amputation of left foot History of vasectomy Social History household members: none Smoking Status: Current every day smoker tobacco type: cigarettes alcohol intake: never substance use type: does not use what type of physical activity do you participate in: none ROS ROS ED Constitutional Constitutional ED: Reports systems reviewed and no addt'l complaints, except as documented; Denies body ache(s), change in weight or chills Eyes Eyes: Denies acute decrease in peripheral vision, change in vision, double vision or loss of vision ENT ENT ED: Reports none; Denies ear pain, lip swelling, loss taste/smell, neck pain, otalgia or sore throat Cardiovascular Cardiovascular: Reports none; Denies abdominal pain, chest pain with activity, leg edema, lightheadedness, palpitations, rapid heart rate or syncope Respiratory/Chest Respiratory/Chest: Reports none; Denies change in mental status, dry cough, dyspnea, hemoptysis, shortness of breath at rest or shortness of breath with exertion Gastrointestinal Gastrointestinal: Reports none; Denies abdominal pain, change in stool character, diarrhea, hematemesis, hematochezia, melena, rectal bleeding or vomiting Genitourinary Genitourinary ED: Reports none; Denies abdominal discomfort, anuria, dysuria, genital pain or polyuria Musculoskeletal Musculoskeletal: Reports none and other Details: Right elbow pain ; Denies arthralgias, back pain, difficulty walking, extremity pain, muscle weakness or myalgias Integumentary Reports none; Denies abscess or rash Neurologic Neurologic: Reports none and weakness; Denies abnormal gait, confusion, focal weakness, frequent falls, headache(s), loss of vision, numbness, paresthesias, radicular pain or vertigo Psychiatric Psychiatric: Reports systems reviewed and no addt'l complaints, except as documented and none; Denies behavioral changes, confusion, difficulty concentrating, hallucinations, suicidal ideation, tactile hallucinations or visual hallucinations Endocrine Endocrinology: Denies none, cold intolerance, excessive sweating, fatigue or h eat intolerance Hematologic/Lymphatic Hematologic/Lymphatic: Reports none; Denies anemia, easy bleeding or easy bruising Allergic/Immunologic Allergic/Immunologic ED: Denies as per HPI, none, lip swelling, mouth swelling, throat swelling, tongue swelling or hives EXAM Physical Exam Const Vital Signs: 02/10/22 14:37 02/10/22 14:38 Pulse Rate 100 101 H Respiratory Rate 26 H 24 H Respiratory Pattern Tachypnea Blood Pressure 155/73 H Blood Pressure Mean 100 Pulse Ox 93 Oxygen Delivery Method Nasal Cannula Oxygen Flow Rate (L/min) 2 Positive well nourished and well developed General Appearance ED: well developed and NAD HEENT Reports TM's clear and moist mucous membranes normocephalic and atraumatic; Negative for trauma or tenderness Tympanic Membrane ED: Yes TM's clear Eyes PERRL and EOMs intact bilaterally General Eye ED: Negative for pale conjunctiva or scleral icterus Neck no lymphadenopathy, supple and no JVD General: Negative for tenderness Chest Wall inspection of chest normal and palpation of chest normal Chest: Negative for tenderness Resp normal respiratory effort and clear to auscultation bilaterally Effort and Inspection: Negative for respiratory distress or pain with movement Auscultation: Negative for rhonchi, wheezes or diminished lung sounds Cardio regular rate, regular rhythm, S1 normal heart sound, S2 normal heart sound and no murmurs Peripheral Pulses: pulses 2+ throughout GI normal to inspection, nondistended, normoactive bowel sounds, soft to palpation, non-tender, non-distended and no masses Back/Spine no CVA tenderness and no thoracic nor lumbar tenderness Extremity normal to inspection Extremity Narrative: Pain to palpation of right elbow and pain with movement at the elbow. General Extremety ED: Negative for edema General Extremity: Negative for edema Neuro oriented x3, CN's II-XII intact bilaterally, no sensory deficits noted and gait normal Neuro Narrative: Patient has some subtle weakness of the right arm and right leg compared to the left side. Questionable facial droop on the right. NIH stroke scale was 3. Patient not a thrombolytic candidate given onset time was sometime yesterday. Sensorium / Orientation: awake, alert, oriented to person, oriented to place and oriented to time Motor Exam: strength 5/5 throughout and strength abnormal Psych mental status grossly normal Skin no rashes or lesions noted and no wounds MDM MDM MDM Narrative Medical decision making narrative: IV line established on arrival. CT scan of the brain without contrast showed chronic involutional changes. Chemistry showed an elevated white blood cell count and chest x-ray showed questionable pneumonia on the right lower lobe therefore I did start patient on Levaquin IV. Patient also had an elevated CPK of 9774. This point CTA of the head and neck also ordered to rule out LVO. Patient not a thrombolytic candidate. CTA of the head and neck was unremarkable. At this point Case will be discussed with hospitalist evaluate patient for admission for mental status change, pneumonia, and rhabdomyolysis. Patient also with an episode of hypoglycemia. At this point I am not convinced that patient had a stroke but seems to have more of a generalized weakness. Lab Data Attestation: I reviewed the patient's lab results. Labs: Laboratory Results - last 24 hr 02/10/22 02/10/22 02/10/22 11:10 11:10 12:27 WBC 15.7 H RBC 6.13 Hgb 17.0 H Hct 54.7 H MCV 89.2 MCH 27.7 MCHC 31.1 L RDW Std Deviation 52.5 H RDW Coeff of Fatuma 16.9 H Plt Count 327 MPV 10.6 Immature Gran % (Auto) 0.700 Neut % (Auto) 78.0 H Lymph % (Auto) 10.9 L [place] % (Auto) 8.8 Eos % (Auto) 0.8 Baso % (Auto) 0.8 Absolute Neuts (auto) 12.3 H Absolute Lymphs (auto) 1.72 Nucleated RBC % 0 Sodium 137 Potassium 4.6 Chloride 105 Carbon Dioxide 22.0 Anion Gap 10 BUN 35 H Creatinine 1.52 H Est GFR (MDRD) Af Amer 59 L Est GFR (MDRD) Non-Af 49 L BUN/Creatinine Ratio 23.0 H Glucose 146 H Calcium 9.1 Total Bilirubin 0.80 AST 216 H ALT 47 Alkaline Phosphatase 87 Total Creatine Kinase 9774 H Troponin I High Sens 8 Total Protein 8.1 Albumin 3.3 Globulin 4.8 H Albumin/Globulin Ratio 0.7 L Urine Color Yellow Urine Clarity Clear Urine pH 5.0 Ur Specific [place] 1.030 Urine Protein 30 H Urine Glucose (UA) Normal Urine Ketones 15 H Urine Occult Blood 250 H Urine Nitrite Negative Urine Bilirubin 1 H Urine Urobilinogen 1 H Ur Leukocyte Esterase 25 H Urine RBC 5-10 SEEN Urine WBC 0-5 SEEN Ur Squamous Epith Cells 0-5 SEEN Urine Bacteria 0 SEEN Hyaline Casts 10-25 SEEN Urine Mucus 2+ Radiography Chest X-Ray - ED: 1 View Diagnostic Testing: Clinical Impression(s) from Imaging Studies Brain CT 02/10/22 11:45 IMPRESSION: No acute intracranial process identified. Chronic small vessel ischemic gliosis. Electronically Signed: Dory Hirsch MD at 12:26 EDT Reading Location ID and State: [facility] / [place] Tel , Service support , Chest X-Ray 02/10/22 11:50 IMPRESSION: Mild right basilar opacity, likely atelectasis or pneumonia with mild pleural effusion. Electronically Signed: Dory Hirsch MD at 12:22 EDT , Elbow X-Ray 02/10/22 11:50 IMPRESSION: No acute fracture or dislocation identified in the right elbow. Electronically Signed: Dory Hirsch MD at 12:20 EDT , Head/Neck CTA 02/10/22 13:59 IMPRESSION: No evidence for significant stenosis in the carotid or vertebral arteries of the neck. No evidence of focal vascular abnormality in the [place] region. Electronically Signed: Dory Hirsch MD at 15:01 EDT , 1 view chest x-ray obtained interpreted by myself as increased markings right lower lobe. Radiology was in agreement. EKG Initial EKG: Attestation: I personally reviewed and interpreted this EKG as follows: Comments: Sinus rhythm with a ventricular rate of 103 bpm with no acute ST segment changes noted Discharge Plan Dx/Rx/DC Orders Clinical Impression: Acute alteration in mental status, Hypoglycemia, Weakness, Pneumonia, Rhabdomyolysis Disposition Disposition: Acute Care Hospital [facility]
--- NOTE | 2022-02-10 13:59 | CT_ITS ---
HISTORY: Confusion. TECHNIQUE: Routine carotid and [place] CT angiogram protocol was performed after the intravenous administration of 100 mL Isovue-370. NASCET criteria using the distal ICAs for comparison were used for evaluation of stenoses. 3D reconstructions were reviewed. A radiation dose optimization technique was used for this scan .1822 images. COMPARISON: Noncontrast CT head same day. FINDINGS: --CTA NECK: AORTIC ARCH AND BRANCHES: Minimal calcified plaque. RIGHT CCA: No occlusion, significant stenosis or dissection. RIGHT ICA: No occlusion, significant stenosis or dissection. LEFT CCA: No occlusion, significant stenosis or dissection. LEFT ICA: No occlusion, significant stenosis or dissection. RIGHT VERTEBRAL ARTERY: No occlusion, significant stenosis or dissection. LEFT VERTEBRAL ARTERY: No occlusion, significant stenosis or dissection. NECK SOFT TISSUES: Scattered small lymph nodes. --CTA HEAD: ICAs: No significant stenosis at the intracranial/visualized segments. ACAs: No significant stenosis at the visualized segments. MCAs: No significant stenosis at the visualized segments. drafter commercial: No significant stenosis at the visualized segments. BASILAR ARTERY: No significant stenosis. VERTEBRAL ARTERIES: No significant stenosis at the intradural/visualized segments. No evidence of intracranial aneurysm or vascular malformation. CT/CTA Head AND Neck W/ Contrast IMPRESSION: No evidence for significant stenosis in the carotid or vertebral arteries of the neck. No evidence of focal vascular abnormality in the [place] region. Electronically Signed: Dory Hirsch MD at 15:01 EDT ,
[2022-02-10] MEDS: Ipratropium/Albuterol Sulfate 3 ML AMPUL.NEB INHALATION ×2 (14:37→18:53)
--- NOTE | 2022-02-10 14:37 | ED.RN ---
See downtime charting for all previous assessments.
--- NOTE | 2022-02-10 14:38 | ED.RN ---
Patient continues to exhibit diminished mentation, at this time he had gargling noted in upper airway with rhonchi noted throughout lung zambrano. Dr. Rutherford aware, respiratory notified for breathing treatment. Report given to Fl[place] for continuity of care.
[2022-02-10 14:57] LABS: Bacteria 0 SEEN /hpf (None Seen); Color, Urine Yellow (Yellow); Glucose, Dipstick Normal (Normal); Ketone-Dipstick 15 mg/dl (Negative); Protein-Dipstick 30 mg/dl (Negative); Urine Bilirubin Dipstick 1 mg/dL (Negative); Urine Clarity Clear (Clear); Urine Urobilinogen 1 mg/dl (Normal)
[2022-02-10 14:58] LABS: Hyaline Cast 10-25 SEEN /lpf (0-5); Leukocyte Esterase-Dipstick 25 /ul (Negative); Mucous, Urine 2+ /hpf (<or=2+); Nitrite-Dipstick Negative (Negative); Occult Blood-Urine 250 /ul (Negative); Red Blood Cells-Urine 5-10 SEEN /hpf (0-5); Squamous Epithelial Cells - UA 0-5 SEEN /hpf (0-5); White Blood Cells 0-5 SEEN /hpf (0-5)
--- NOTE | 2022-02-10 16:15 | HP.PCM.HOS_ITS ---
HPI - General General Date of Admission: 02/10/22 Date of Service: 02/10/22 Chief Complaint: Altered mental status, laying on the chair for long time, rhabdomyolysis HPI Narrative GEN SIM, is a 66 M with multiple comorbidities was brought to ER by EMS. Son came to his home in the morning today and found him unresponsive, right-side d facial droop not using right hand and called EMS. EMS found him low blood sugar, not responding confused and was given glucose. In ED patient's glucose has normalized. Patient complaining of right upper arm pain and elbow pain. There is a skin tear over right elbow point, olecranon process. In ED, patient had EKG sinus tachycardia 103 beats, QTc interval 466 ms. Patient is short of breath. Chest x-ray shows individually reviewed and shows congestion with mild right pleural effusion with associated atelectasis. As per radiologist, likely atelectasis or pneumonia and chest x-ray but I feel it is more pulmonary venous congestion/edema. CT brain does not show acute intracranial process. Furthermore patient had CTA head and neck which did not show significant stenosis in carotid or vertebral arteries. Elbow x-ray no acute fracture or dislocation. Labs shows elevated BUN/creatinine and CK in detail discussed in assessment and plan. Patient is further admitted. Significant past medical history: Morbid obesity ANT on CPAP diabetes mellitus type 2 with complicated chronic neuropathy and diabetic wounds status post left transmetatarsal amputation. 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 Chronic ulcer of left foot with fat layer exposed Chronic ulcer of left foot with necrosis of bone Chronic ulcer of left foot with necrosis of muscle Chronic ulcer of right foot with fat layer exposed Chronic ulcer of right foot with necrosis of muscle Corns and callosities CPAP (continuous positive airway pressure) dependence Debility Delayed wound healing Diabetes mellitus Diabetic infection of left foot Diabetic neuropathy Diabetic polyneuropathy Diabetic ulcer of left foot Difficulty in walking, not elsewhere classified Difficulty walking Erectile dysfunction Fissure in skin of foot HTN (hypertension) Hyperlipidemia Hyperlipidemia Hypertension Hypokalemia Localized edema Localized edema Mixed hyperlipidemia Morbid obesity due to excess calories MRSA (methicillin resistant staph aureus) culture positive Neuropathic pain Non-pressure chronic ulcer of other part of left foot with fat layer exposed Non-pressure chronic ulcer of other part of right foot with fat layer exposed Non-pressure chronic ulcer of right calf with fat layer exposed Non-pressure chronic ulcer of unspecified part of left lower leg with fat layer exposed Obesity Obesity Obstructive sleep apnea Onycholysis Osteomyelitis of great toe of left foot Osteomyelitis of left foot Osteomyelitis of right foot Osteomyelitis, unspecified Other hereditary and idiopathic neuropathies Other specified peripheral vascular diseases Peripheral vascular disease Sleep apnea Smoker 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 Tinea unguium Tobacco abuse Tobacco abuse Tobacco abuse counseling Tobacco dependence due to cigarettes Trauma of toe of right foot Type 2 diabetes mellitus Type 2 diabetes mellitus Type 2 diabetes mellitus with diabetic polyneuropathy Ulcer of left foot with muscle involvement without evidence of necrosis Ulcer of left foot with necrosis of muscle Ulcer of left lower extremity with fat layer exposed Ulcer of right foot with fat layer exposed Ulcer of right foot with fat layer exposed Ulcer of right lower extremity with fat layer exposed Home Medications calcium carbonate 500 mg PO DAILY 06/23/17 [History Last Taken 06/23/17] multivitamin 1 ea PO DAILY 06/23/17 [History Last Taken 06/23/17] atorvastatin 40 mg tablet 40 mg PO DAILY 10/18/19 [History Last Taken 08/31/20 22:39] bupropion HCl 150 mg 24 hr tablet, extended release 150 mg PO BID tab 10/18/19 [History Last Taken 09/01/20 08:27] tamsulosin 0.4 mg capsule 0.4 mg PO DAILY@1730 cap 10/18/19 [History Last Taken 08/31/20 17:28] gabapentin 300 mg capsule 600 mg PO TIDCM cap 04/24/20 [History Last Taken 09/01/20 13:15] aspirin 81 mg tablet,delayed release 81 mg PO DAILY tab 07/28/20 [History Last Taken Unknown] lancets 09/01/20 [History Last Taken Unknown] acetaminophen 1,000 mg PO Q6H PRN tab 10/03/20 [Rx Last Taken Unknown] naproxen 500 mg tablet 500 mg PO BID PRN 10/31/20 [History Last Taken Unknown] blood-glucose transmitter #1 ea 11/30/20 [Rx Last Taken Unknown] blood sugar diagnostic #100 ea 08/06/21 [Rx Last Taken Unknown] flash glucose sensor #2 ea 08/23/21 [Rx Last Taken Unknown] Farxiga 10 mg tablet 10 mg PO DAILY #90 tab NS 09/03/21 [Rx Last Taken Unknown] dulaglutide 0.75 mg/0.5 mL subcutaneous pen injector 0.75 mg SUBCUT QWEEK #2 ml 11/14/21 [Rx Last Taken Unknown] lisinopril 40 mg tablet 40 mg PO DAILY #90 tab 11/21/21 [Rx Last Taken Unknown] Humulin R U-500 (Conc) Kwikpen 500 unit/mL (3 mL) subcutaneous 110 unit SUBCUT TID #27 ml NS 12/25/21 [Rx Last Taken Unknown] doxepin 25 mg PO QHS 02/10/22 [History Last Taken Unknown] Allergy/AdvReac Type Severity Reaction Status Date / Time No Known Allergies Allergy Verified 01/26/22 17:04 Family History Father Myocardial infarction Heart disease Mother Kidney disease Diabetes Sister Asthma Breast cancer Hypertension Brother Alcoholism Melanoma Surgical History History of ankle surgery History of deviated nasal septum History of hernia repair History of oral surgery 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 History of vasectomy Social History household members: none Smoking Status: Current every day smoker tobacco type: cigarettes alcohol intake: never substance use type: does not use what type of physical activity do you participate in: none ROS ROS Narrative 14 system difficult to obtain completely as patient is obtunded and taken from patient's son. Constitutional: Reports fatigue and weakness. In pain of right elbow HEENT: Reports systems reviewed and no addt'l complaints, except as documented Respiratory/Chest: No chest pain or pressure. Mild short of breath Gastrointestinal: Denies coffee ground emesis, hematemesis or vomiting. Last admission in October 2021 for GI bleed due to Kalie-Aceveod tear. Genitourinary: Urinary incontinence. Denies burning micturition but unclear whether other urinary tract symptoms Musculoskeletal: Multiple scabs on the right foot. Right fifth digit and metatarsal amputation. Left transmetatarsal amputation. Neurologic: Denies seizure-like activity. Right facial droop. skin: Multiple scabbed wound in right foot. Venous stasis lymphedematous changes. Endocrinology: Diabetes mellitus type 2 with long-term complication of diabetic nephropathy, neuropathy and diabetic feet ulcers reports systems reviewed and no addt'l complaints, except as documented Hematologic/Lymphatic: Leg swelling lymphedema. Reports systems reviewed and no addt'l complaints, except as documented Review of Systems ROS Unobtainable: due to encephalopathy and due to mental condition Vital Signs Vital Signs Vital Signs: 02/10/22 10:15 02/10/22 14:37 02/10/22 14:38 Temperature 98.5 F Temperature Source Temporal Pulse Rate 102 H 100 101 H Respiratory Rate 26 H 26 H 24 H Respiratory Pattern Tachypnea Blood Pressure 138/79 H 155/73 H Blood Pressure Mean 98 100 Pulse Ox 93 93 Oxygen Delivery Method Room Air Nasal Cannula Oxygen Flow Rate (L/min) 2 02/10/22 15:19 Temperature 97.8 F Temperature Source Temporal Pulse Rate 98 Respiratory Rate 18 Respiratory Pattern Blood Pressure 132/87 H Blood Pressure Mean 102 Pulse Ox 95 Oxygen Delivery Method Nasal Cannula Oxygen Flow Rate (L/min) 2 Weight Weight: 322 lb 12.108 oz Body Mass Index (BMI) 41.4 Physical Exam Narrative Physical exam General: Drowsy, lethargic, Disoriented to time, place and person. HEENT: Atraumatic, PERRLA, EOMI, Normocephalic Oral: Thick DRY SECRETIONS. dry parched mucous membrane no Gingival or Mucosal Lesions/ Ulcerations Neck: Supple, No JVD, Negative Carotid Bruits Lungs: Air entry diminished in bilateral lung bases. No crepitation/rhonchi Cardiovascular: Regular rate, Regular Rhythm, Normal S1, Normal S2, No murmurs Abdomen: Bowel Sounds Present, Soft, Non Tender, Non-Distended : No renal angle tenderness. No suprapubic tenderness. Extremities: No edema, Capillary Refill Less than 3 Seconds Skin: No rashes, No breakdown Musculoskeletal: No Tenderness to Palpation of Joints or Extremities Neurological: Right-sided facial droop. Patient cannot answer month and his age. GCS [id number] 13. Right arm and right leg weakness. Patient also has garbl ed speech, dysarthria and language deficit. Psych/Mental Status: Drowsy lethargic, flat affect Results Lab / Micro Data Result Diagrams: 02/10/22 11:10 02/10/22 11:10 Labs: Laboratory Results - last 24 hr 02/10/22 11:10: WBC 15.7 H, RBC 6.13, Hgb 17.0 H, Hct 54.7 H, MCV 89.2, MCH 27.7, MCHC 31.1 L, RDW Std Deviation 52.5 H, RDW Coeff of [place] 16.9 H, Plt Count 327, MPV 10.6, Immature Gran % (Auto) 0.700, Neut % (Auto) 78.0 H, Lymph % (Auto) 10.9 L, [place] % (Auto) 8.8, Eos % (Auto) 0.8, Baso % (Auto) 0.8, Absolute Neuts (auto) 12.3 H, Absolute Lymphs (auto) 1.72, Nucleated RBC % 0 02/10/22 11:10: Sodium 137, Potassium 4.6, Chloride 105, Carbon Dioxide 22.0, Anion Gap 10, BUN 35 H, Creatinine 1.52 H, Est GFR (MDRD) Af Amer 59 L, Est GFR (MDRD) Non-Af 49 L, BUN/Creatinine Ratio 23.0 H, Glucose 146 H, Calcium 9.1, Total Bilirubin 0.80, AST 216 H, ALT 47, Alkaline Phosphatase 87, Total Creatine Kinase 9774 H, Troponin I High Sens 8, Total Protein 8.1, Albumin 3.3, Globulin 4.8 H, Albumin/Globulin Ratio 0.7 L 02/10/22 12:27: Urine Color Yellow, Urine Clarity Clear, Urine pH 5.0, Ur Specific [place] 1.030, Urine Protein 30 H, Urine Glucose (UA) Normal, Urine Ketones 15 H, Urine Occult Blood 250 H, Urine Nitrite Negative, Urine Bilirubin 1 H, Urine Urobilinogen 1 H, Ur Leukocyte Esterase 25 H, Urine RBC 5-10 SEEN, Urine WBC 0-5 SEEN, Ur Squamous Epith Cells 0-5 SEEN, Urine Bacteria 0 SEEN, Hyaline Casts 10-25 SEEN, Urine Mucus 2+ Micro: Microbiology 02/10/22 11:10 Nasal Secretion SARS-CoV-2 & FLU Antigen (Rapid) - Final Radiology Impression Brain CT 02/10/22 11:45 IMPRESSION: No acute intracranial process identified. Chronic small vessel ischemic gliosis. Electronically Signed: Dory Hirsch MD at 12:26 EDT , Chest X-Ray 02/10/22 11:50 IMPRESSION: Mild right basilar opacity, likely atelectasis or pneumonia with mild pleural effusion. Electronically Signed: Dory Hirsch MD at 12:22 EDT , Elbow X-Ray 02/10/22 11:50 IMPRESSION: No acute fracture or dislocation identified in the right elbow. Electronically Signed: Dory Hirsch MD at 12:20 EDT Reading Location ID and State: [facility] / [place] Tel , Service support , Head/Neck CTA 02/10/22 13:59 IMPRESSION: No evidence for significant stenosis in the carotid or vertebral arteries of the neck. No evidence of focal vascular abnormality in the [place] region. Electronically Signed: Dory Hirsch MD at 15:01 EDT Reading Location ID and State: [facility] / [place] Tel , Service support , Assessment & Plan Assessment/Plan (1) Acute alteration in mental status: (2) Hypoglycemia: (3) Rhabdomyolysis: QUALIFIERS: Rhabdomyolysis type: non-traumatic Qualified Code(s): M62.82 - Rhabdomyolysis PLAN: 1. Acute encephalopathy most likely due to stroke/complicated with metabolic encephalopathy: Patient is being admitted in PCU. MRI brain ordered. Stroke protocol for NIH score monitor, PT OT speech and swallow evaluation, BP and glucose control. 2D echo ordered for tomorrow a.m. Patient on aspirin. Hold atorvastatin for rhabdomyolysis. Discussed with the son. EVE consult once work-up is done. Function profile, TSH and A1c for tomorrow a.m. 2. Acute on chronic HFpEF: Patient had last echo in 05/11/2019 reported EF 55% stage I diastolic dysfunction hypokinetic basal wall. Structurally normal valves. Chest x-ray image reviewed shows pulmonary edema. Lasix 40 mg IV given. 3. Acute kidney injury with CKD stage II, diabetic nephropathy: Patient baseline creatinine clearance about 75 mill per hour. Admitted with BUN/creatinine 35/1.52. Discussed with the [place] director of enrollment and agreed for Lasix for pulmonary decongestion. Electrolytes are in normal range. Anion gap 10. 4. Rhabdomyolysis with prolonged laying on the chair. Patient has pain and tenderness over right upper arm and skin tear but elbow express normal. Radial and ulnar artery neurovascular bundle intact. Bilateral upper extremity weakness right more than left. 5. Diabetes mellitus type 2 with hypoglycemia with history of long-term complication: Patient has diabetic nephropathy, neuropathy multiple feet wound and amputation in the past. Accu-Cheks every 6 hourly. Glucose in BMP is 146. Patient follows wound clinic. Wound nurse consulted. 6. Hypertension: BP was elevated 155/73. Most recently normal. EKG sinus tachycardia. 7. Dyslipidemia: Hold statin as patient having rhabdomyolysis. 8. Class III obesity with BMI of 39.6 kg/m? -Weight loss advised 9. Obstructive sleep apnea: CPAP at bedtime 10. GERD with last admission for Kalie-Acevedo tear and gastritis: Patient had EGD at that time. Continue PPI 11. BPH ?Patient is on tamsulosin 12. Chronic cigarette smoking/Tobacco dependence: Nicotine patch when patient is more awake. 13. Anxiety and depression: Hold antidepressant medication as patient is lethargy. 14. DVT prophylaxis: Heparin 5000 subcutaneous every 8 hourly as patient is high risk for thromboembolism but is also high risk of bleeding. Discontinue if platelet count drops less than 50,000 or hemoglobin less than 8 g% Advanced directive: Living will/advanced directive/end of life care: Patient does not have living will or advanced directive. Discussed with the patient and his son present in the room. Patient is next to kin. After discussion of benefits/risks procedures involved with full code, DNR CC arrest and DNR CC, the patient and his son opted for DNRCC arrest with no intubation. Patient doesn't want artificial life support including intubation, tube feed, ventilator and/chest compression, central venous catheter, vasopressor and DC shock if needed Total time spent in [id number] encounter in discussion of advanced di rective 16 minutes. Charges/Coding Visit Charges Inpatient E&M: 49373 Init Hosp L3 Procedures Hospitalists Procedures: 77284 Advncd Care Plan 30 Min
[2022-02-10 16:38] LABS: Magnesium 2.5 mg/dL (1.6-2.6); Phosphorus 4.7 mg/dL (2.5-4.9)
[2022-02-10 16:55] LABS: Bedside Glucose 187 mg/dL (74-106)
[2022-02-10] MEDS: Furosemide 40 MG/4 ML Vial IV (17:50)
[2022-02-10] MEDS: Insulin Lispro 100 UNIT/ML INSULN.PEN SC ×2 (17:53→23:17)
[2022-02-10 18:01] LABS: Bedside Glucose 184 mg/dL (74-106)
--- NOTE | 2022-02-10 18:02 | PCM.CONS.R ---
Assessment & Plan Assessment/Plan (1) DEAN (acute kidney injury): PLAN: - The patient has normal baseline renal function with serum creatinine of 0.8 to 0.9 mg/dL at baseline. -Suspect DEAN is due to prerenal azotemia. I suspect this is more from true volume depletion versus cardiorenal DEAN. -The patient appears to be volume depleted on exam with dry mucous membrane and no significant lower extremity edema. He is hemoconcentrated with hemoglobin of 17.4 g/dL on presentation. Urinalysis also showed high specific gravity. -Echocardiogram done in October 2021 showed normal EF at 60%. -Although the patient has rhabdomyolysis, CPK was less than 20,000 on presentation. So, rhabdomyolysis related ATN would not be the primary cause of DEAN at this point. -The clinical dilemma is that the patient presented with dyspnea and chest x-ray finding consistent with pulmonary edema/effusion. -He has been given 1 dose of IV Lasix earlier today. -I will recheck renal function to determine trajectory of his serum creatinine as the prerenal azotemia may evolve to ATN as well. -If serum creatinine continues to increase tonight or if there is hypotension, I would treat with fluid boluses. (2) Rhabdomyolysis: QUALIFIERS: Rhabdomyolysis type: non-traumatic Qualified Code(s): M62.82 - Rhabdomyolysis PLAN: -CPK is 9774. Typically, we with the CPK over 20,000 with rhabdomyolysis related to DEAN. -Continue to trend CPK level. (3) Dyspnea: PLAN: - The patient has subjective dyspnea with chest x-ray findings consistent with pleural effusion/pulmonary edema. -As mentioned above, he has been given 1 dose of IV Lasix earlier. -Continue to monitor respiratory status closely. (4) Weakness: PLAN: - The patient does present with facial drooping and right-sided weakness. However, CT head did not show acute pathology. -Likely need MRI per my discussion with Dr. Malone. (5) Hypoglycemia: PLAN: - The patient presented with hypoglycemia which has been corrected. HPI Consult Data Date of Consult: 02/10/22 HPI Narrative Reason for Consultation: Acute kidney injury HPI Narrative: GEN SIM is a 66-year-old man with past history of type 2 diabetes mellitus, ANT, and hypertension who presents to the hospital today with altered mental status along with right side weakness and left facial droop. The patient was found by his son earlier today to be unresponsive. He was last found well 20 hours prior to when he was seen by son again this morning. The patient was found to be in the same chair that he was in 20 hours earlier. The patient was found to have rhabdomyolysis with CPK of 9774. The patient was found to be hypoglycemic on presentation. Chest x-ray revealed possible pulmonary edema and pleural effusion. The patient is lethargic and can only give 1-2 word answers to my questions. He denies current chest pain, nausea, or diarrhea prior to admission. The patient reports that his shortness of breath has improved since admission. Serum creatinine is 0.8 to 0.9 mg/dL at baseline. Serum creatinine is 1.52 mg/dL on presentation. Prior to admission, the patient had been on lisinopril. 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 Chronic ulcer of left foot with fat layer exposed Chronic ulcer of left foot with necrosis of bone Chronic ulcer of left foot with necrosis of muscle Chronic ulcer of right foot with fat layer exposed Chronic ulcer of right foot with necrosis of muscle Corns and callosities CPAP (continuous positive airway pressure) dependence Debility Delayed wound healing Diabetes mellitus Diabetic infection of left foot Diabetic neuropathy Diabetic polyneuropathy Diabetic ulcer of left foot Difficulty in walking, not elsewhere classified Difficulty walking Erectile dysfunction Fissure in skin of foot HTN (hypertension) Hyperlipidemia Hyperlipidemia Hypertension Hypokalemia Localized edema Localized edema Mixed hyperlipidemia Morbid obesity due to excess calories MRSA (methicillin resistant staph aureus) culture positive Neuropathic pain Non-pressure chronic ulcer of other part of left foot with fat layer exposed Non-pressure chronic ulcer of other part of right foot with fat layer exposed Non-pressure chronic ulcer of right calf with fat layer exposed Non-pressure chronic ulcer of unspecified part of left lower leg with fat layer exposed Obesity Obesity Obstructive sleep apnea Onycholysis Osteomyelitis of great toe of left foot Osteomyelitis of left foot Osteomyelitis of right foot Osteomyelitis, unspecified Other hereditary and idiopathic neuropathies Other specified peripheral vascular diseases Peripheral vascular disease Sleep apnea Smoker 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 Tinea unguium Tobacco abuse Tobacco abuse Tobacco abuse counseling Tobacco dependence due to cigarettes Trauma of toe of right foot Type 2 diabetes mellitus Type 2 diabetes mellitus Type 2 diabetes mellitus with diabetic polyneuropathy Ulcer of left foot with muscle involvement without evidence of necrosis Ulcer of left foot with necrosis of muscle Ulcer of left lower extremity with fat layer exposed Ulcer of right foot with fat layer exposed Ulcer of right foot with fat layer exposed Ulcer of right lower extremity with fat layer exposed Home Medications calcium carbonate 500 mg PO DAILY 06/23/17 [History Last Taken 06/23/17] multivitamin 1 ea PO DAILY 06/23/17 [History Last Taken 06/23/17] atorvastatin 40 mg tablet 40 mg PO DAILY 10/18/19 [History Last Taken 08/31/20 22:39] bupropion HCl 150 mg 24 hr tablet, extended release 150 mg PO BID tab 10/18/19 [History Last Taken 09/01/20 08:27] tamsulosin 0.4 mg capsule 0.4 mg PO DAILY@1730 cap 10/18/19 [History Last Taken 08/31/20 17:28] gabapentin 300 mg capsule 600 mg PO TIDCM cap 04/24/20 [History Last Taken 09/01/20 13:15] aspirin 81 mg tablet,delayed release 81 mg PO DAILY tab 07/28/20 [History Last Taken Unknown] lancets 09/01/20 [History Last Taken Unknown] acetaminophen 1,000 mg PO Q6H PRN tab 10/03/20 [Rx Last Taken Unknown] naproxen 500 mg tablet 500 mg PO BID PRN 10/31/20 [History Last Taken Unknown] blood-glucose transmitter #1 ea 11/30/20 [Rx Last Taken Unknown] blood sugar diagnostic #100 ea 08/06/21 [Rx Last Taken Unknown] flash glucose sensor #2 ea 08/23/21 [Rx Last Taken Unknown] Farxiga 10 mg tablet 10 mg PO DAILY #90 tab NS 09/03/21 [Rx Last Taken Unknown] dulaglutide 0.75 mg/0.5 mL subcutaneous pen injector 0.75 mg SUBCUT QWEEK #2 ml 11/14/21 [Rx Last Taken Unknown] lisinopril 40 mg tablet 40 mg PO DAILY #90 tab 11/21/21 [Rx Last Taken Unknown] Humulin R U-500 (Conc) Kwikpen 500 unit/mL (3 mL) subcutaneous 110 unit SUBCUT TID #27 ml NS 12/25/21 [Rx Last Taken Unknown] doxepin 25 mg PO QHS 02/10/22 [History Last Taken Unknown] Allergy/AdvReac Type Severity Reaction Status Date / Time No Known Allergies Allergy Verified 01/26/22 17:04 Family History Father Myocardial infarction Heart disease Mother Kidney disease Diabetes Sister Asthma Breast cancer Hypertension Brother Alcoholism Melanoma Surgical History History of ankle surgery History of deviated nasal septum History of hernia repair History of oral surgery 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 History of vasectomy Social History household members: none Smoking Status: Current every day smoker tobacco type: cigarettes alcohol intake: never substance use type: does not use what type of physical activity do you participate in: none ROS ROS Narrative The patient is lethargic and cannot provide ROS. Physical Exam Narrative General: Lethargic but arousable with voice HEENT: Normocephalic atraumatic mucous membrane dry. Neck: Supple no visible JVD. Heart: Tachycardic S1, S2. No rubs or murmurs. Lungs: Decreased breath sound at bases with expiratory wheezing. Abdomen: Normal bowel sound, soft, nontender, no guarding or rebound. Extremities: No clubbing, cyanosis or edema. Musculoskeletal: Full passive range of motion, no joint swelling. Psychiatric: Flat affect. Skin: Warm and dry. No visible rashes. Lab / Micro Data Result Diagrams: 02/10/22 11:10 02/10/22 11:10 Labs: Laboratory Results - last 24 hr 02/10/22 11:10: WBC 15.7 H, RBC 6.13, Hgb 17.0 H, Hct 54.7 H, MCV 89.2, MCH 27.7, MCHC 31.1 L, RDW Std Deviation 52.5 H, RDW Coeff of Fatuma 16.9 H, Plt Count 327, MPV 10.6, Immature Gran % (Auto) 0.700, Neut % (Auto) 78.0 H, Lymph % (Auto) 10.9 L, [place] % (Auto) 8.8, Eos % (Auto) 0.8, Baso % (Auto) 0.8, Absolute Neuts (auto) 12.3 H, Absolute Lymphs (auto) 1.72, Nucleated RBC % 0 02/10/22 11:10: Sodium 137, Potassium 4.6, Chloride 105, Carbon Dioxide 22.0, Anion Gap 10, BUN 35 H, Creatinine 1.52 H, Est GFR (MDRD) Af Amer 59 L, Est GFR (MDRD) Non-Af 49 L, BUN/Creatinine Ratio 23.0 H, Glucose 146 H, Calcium 9.1, Total Bilirubin 0.80, AST 216 H, ALT 47, Alkaline Phosphatase 87, Total Creatine Kinase 9774 H, Troponin I High Sens 8, Total Protein 8.1, Albumin 3.3, Globulin 4.8 H, Albumin/Globulin Ratio 0.7 L 02/10/22 11:10: Phosphorus 4.7, Magnesium 2.5 02/10/22 12:27: Urine Color Yellow, Urine Clarity Clear, Urine pH 5.0, Ur Specific [place] 1.030, Urine Protein 30 H, Urine Glucose (UA) Normal, Urine Ketones 15 H, Urine Occult Blood 250 H, Urine Nitrite Negative, Urine Bilirubin 1 H, Urine Urobilinogen 1 H, Ur Leukocyte Esterase 25 H, Urine RBC 5-10 SEEN, Urine WBC 0-5 SEEN, Ur Squamous Epith Cells 0-5 SEEN, Urine Bacteria 0 SEEN, Hyaline Casts 10-25 SEEN, Urine Mucus 2+ 02/10/22 16:47: POC Glucose 187 H 02/10/22 17:50: POC Glucose 184 H Micro: Microbiology 02/10/22 11:10 Nasal Secretion SARS-CoV-2 & FLU Antigen (Rapid) - Final Radiology Impression Brain CT 02/10/22 11:45 IMPRESSION: No acute intracranial process identified. Chronic small vessel ischemic gliosis. Electronically Signed: Dory Hirsch MD at 12:26 EDT , Chest X-Ray 02/10/22 11:50 IMPRESSION: Mild right basilar opacity, likely atelectasis or pneumonia with mild pleural effusion. Electronically Signed: Dory Hirsch MD at 12:22 EDT , Elbow X-Ray 02/10/22 11:50 IMPRESSION: No acute fracture or dislocation identified in the right elbow. Electronically Signed: Dory Hirsch MD at 12:20 EDT , Head/Neck CTA 02/10/22 13:59 IMPRESSION: No evidence for significant stenosis in the carotid or vertebral arteries of the neck. No evidence of focal vascular abnormality in the [place] region. Electronically Signed: Dory Hirsch MD at 15:01 EDT ,
[2022-02-10 21:28] LABS: Albumin, Serum 2.9 g/dL (3.2-5.0); BUN 35 mg/dL (7-18); BUN/Creat Ratio 30.2 RATIO (10-20); Calcium,Total 8.8 mg/dL (8.5-10.1); Chloride 107 mmol/L (98-107); Creatinine, Serum 1.16 mg/dL (0.70-1.30); EST Glomerular Filtration Rate 67 mL/min (>60); Est Glom Filt Rate - Afr Amer 81 mL/min (>60); Estimated Creatinine Clearance 75.88 ml/min; Glucose 196 mg/dL (74-106); Phosphorus 3.6 mg/dL (2.5-4.9); Potassium 5.5 mmol/L (3.5-5.1); Sodium Level 135 mmol/L (136-145)
[2022-02-10] MEDS: Menthol/Lanolin/Calamine/Znox 113 GM Tube 1 APPLIC TOPICAL (23:10)
[2022-02-10] MEDS: Heparin Injection (Vial) 5,000 UNIT/ML VIAL 5000 UNIT SC (23:11)
[2022-02-10] MEDS: 0.9% Saline Lock 10 ML Syringe IV (23:17)
[2022-02-11] VITALS (26 sets, daily range): BP systolic 101–167; BP diastolic 63–87; PULSE 97–110; RESP 18–24; TEMP 35.8–37.7; O2SAT 93–96; BMI 39.6
[2022-02-11 01:16] LABS: Bedside Glucose 224 mg/dL (74-106)
[2022-02-11] MEDS: 0.9% Normal Saline 1,000 ML 75 ML IV ×2 (02:09→16:53)
--- NOTE | 2022-02-11 03:00 | NURSING ---
Patient bilateral buttocks red with areas of unbalanceable skin. Areas on upper buttocks cheeks with black open areas. Areas cleaned, patted dry and Lionel applied. Wound nurse consultated .
--- NOTE | 2022-02-11 03:08 | NURSING ---
RN attempted beside Dysphasia screening. Patient sits up speaks in slow phases. Makes good eye contact, mouth remains agape. Mouth care attempted first and patient makes no effort to move mouth or tongue mouth remains agape. Screening stopped.
[2022-02-11 05:22] LABS: Absolute Lymphocyte Count 1.23 X10^3/uL (0.83-4.51); Absolute Neutrophil Count 14.1 X10^3/uL (2.0-7.7); Basophil# 0.09 X10^3/uL; Basophil% 0.5 % (0-1); Eosinophil# 0.02 X10^3/uL; Eosinophils% 0.1 % (0-5); Hematocrit 55.3 % (40-54); Hemoglobin 17.3 g/dL (13.0-16.5); Lymphocyte # 1.23 X10^3/ul (0.83-4.51); Lymphocyte % 7.3 % (19-41); Mean Corp Hgb Conc 31.3 g/dL (32-36); Mean Corpuscular Hgb 27.9 pg (27.0-32.0); Mean Corpuscular Volume 89.3 fL (80-94); Mean Platelet Vol. 10.8 fl (6.2-12.0); Monocyte# 1.33 X10^3/uL; Monocyte% 7.9 % (0-10); NRBC Flagged by Analyzer 0 % (0-5); Neutrophil # 14.14 X10^3/uL (2.7-7.7); Neutrophil % 83.4 % (47-70); Platelet Count 312 K/mm3 (150-450); RBC Distribution Width CV 16.9 % (11.6-14.6); RBC Distribution Width SD 52.5 fl (35.1-43.9); Red Blood Count 6.19 M/mm3 (4.6-6.2); White Blood Count 16.9 K/mm3 (4.4-11.0)
--- NOTE | 2022-02-11 05:55 | MRI_ITS ---
STUDY: MRI BRAIN WITHOUT CONTRAST REASON FOR EXAM: Male, 66 years old. stroke suspected, rt sided weakness, rt facial droop, confusion TECHNIQUE: Standardized multiplanar fat and water weighted pulse sequences were obtained. COMPARISON: Head CT dated FEBRUARY 10, 2022. FINDINGS: There is mild cerebral atrophy with widening of the extra-axial spaces and ventricular dilatation. There are a limited number of small white matter hyperintensities, distributed throughout the deep white matter tracts of the cerebral hemispheres, consistent with mild chronic white matter ischemic changes. There is no evidence for recent intracranial ischemia or other cause of cytotoxic edema on diffusion weighted imaging (DWI). Normal T2* images of the brain without demonstrated susceptibility artifact. There is no demonstrated hemosiderin stain. Normal bilateral basal ganglia. Normal thalami. There is no extra-axial fluid accumulation. Normal flow voids within the major intracranial circulation suggesting patency by spin echo criteria. Normal sella turcica, pituitary gland, infundibular stalk, optic chiasm and hypothalamus. Normal tectal plate and pineal gland. Normal midbrain, wendie and medulla. Normal cerebellum. Normal basal cisterns. Normal bilateral temporal bones. Normal bilateral internal auditory canals. No demonstrated orbital abnormality, within the constraints of a routine brain study. Normal visualized paranasal sinuses. Normal calvarium and skull base. Normal visualized soft tissue structures. Normal visualized upper cervical spine. MRI/Brain without Contrast IMPRESSION: Involutional changes of the brain, as described above. Electronically Signed: Kole Terry MD at 11:00 EDT ,
--- NOTE | 2022-02-11 05:55 | ECHOCS_ITS ---
Version 2 Reason For Study: TIA/CVA Procedure This was a 2D Doppler, Color Flow transthoracic echocardiogram. The study was technically difficult. Contrast injection was performed. Exam performed portable in patient room. Left Ventricle Normal LV size. Mild concentric left ventricular hypertrophy. Left ventricular systolic function is normal. The estimated ejection fraction is 75 %. No regional wall motion abnormalities noted. Right Ventricle Normal size and thickness. Normal systolic function. Atria The left atrium is not well visualized. The right atrium is not well visualized. Bubble contrast study negative for right to left interatrial shunt. Mitral Valve Normal mitral valve. Tricuspid Valve Normal tricuspid valve. Aortic Valve The aortic valve is not well visualized. Pulmonic Valve The pulmonic valve is not well visualized. Great Vessels Normal aortic root. The pulmonary artery is normal size. Pericardium/Pleural No pericardial effusion. Medication Diluted definity 3ml given slow IV push to enhance endocardial definition. Performed a rapid injection of agitated mix of 9 cc saline and 1cc air to assess for atrial septal defect. MMode/2D Measurements & Calculations LVIDd: 3.3 cm IVSd: 1.5 cm LA dimension: 3.4 cm LVIDs: 2.1 cm LVPWd: 1.5 cm FS: 35.6 % Time Measurements MV dec time: 0.34 sec Doppler Measurements & Calculations MV E max marcos: 49.4 cm/sec Lat Peak E' Marcos: 8.4 cm/sec Med Peak E' Marcos: 4.6 cm/sec MV A max marcos: 75.9 cm/sec E/E' lat: 5.9 E/E' med: 10.8 MV E/A: 0.65 MV V2 max: 71.6 cm/sec MV P1/2t max marcos: 63.8 cm/sec Ao V2 max: 138.6 cm/sec MV max P.1 mmHg MV P1/2t: 75.3 msec Ao max P.7 mmHg MV V2 mean: 47.6 cm/sec MV mean P.0 mmHg MV dec slope: 248.5 cm/sec2 MV V2 VTI: 17.9 cm MVA(P1/2t): 2.9 cm2 LV V1 max: 126.6 cm/sec PA V2 max: 128.1 cm/sec LV V1 max P.4 mmHg ECHO/Echo Complete W/ Contrast Interpretation Summary Normal LV size. Left ventricular systolic function is normal. The estimated ejection fraction is 75 %. No regional wall motion abnormalities noted. Bubble contrast study negative for right to left interatrial shunt. Mild concentric left ventricular hypertrophy. Contrast injection was performed. Ordering Physician: Jon Malone Referring Physician: Jaime Meyer Chi Performed By: Keny Tijerina RCS
[2022-02-11 06:02] LABS: Anion Gap 11 (5-15); BUN 42 mg/dL (7-18); BUN/Creat Ratio 35.6 RATIO (10-20); Chloride 107 mmol/L (98-107); Cholesterol 106 mg/dL (200); Creatinine, Serum 1.18 mg/dL (0.70-1.30); EST Glomerular Filtration Rate 66 mL/min (>60); Est Glom Filt Rate - Afr Amer 80 mL/min (>60); Estimated Creatinine Clearance 74.59 ml/min; Glucose 272 mg/dL (74-106); High Density Lipoprotein 58 mg/dL; Potassium 5.3 mmol/L (3.5-5.1); Sodium Level 135 mmol/L (136-145); Thyroid Stim Hormone (TSH) 2.47 uIU/mL (0.358-3.74); Triglycerides 77 mg/dL; Very Low Density Lipoprotein 15 mg/dL (5-40)
[2022-02-11] MEDS: Menthol/Lanolin/Calamine/Znox 113 GM Tube 1 APPLIC TOPICAL ×3 (06:03→20:46)
[2022-02-11] MEDS: Heparin Injection (Vial) 5,000 UNIT/ML VIAL 5000 UNIT SC ×3 (06:03→20:44)
[2022-02-11] MEDS: Insulin Lispro 100 UNIT/ML INSULN.PEN SC ×4 (06:36→22:57)
[2022-02-11] MEDS: Ipratropium/Albuterol Sulfate 3 ML AMPUL.NEB INHALATION ×4 (06:46→20:28)
[2022-02-11 06:55] LABS: Bedside Glucose 280 mg/dL (74-106)
[2022-02-11 07:00] LABS: Squamous Epithelial Cells - UA 0 SEEN /hpf (0-5)
[2022-02-11 07:01] LABS: Color, Urine Yellow (Yellow); Glucose, Dipstick 100 mg/dl (Normal); Ketone-Dipstick 50 mg/dl (Negative); Leukocyte Esterase-Dipstick 25 /ul (Negative); Nitrite-Dipstick Negative (Negative); Occult Blood-Urine 150 /ul (Negative); Protein-Dipstick 15 mg/dl (Negative); Specific Gravity, Urine 1.025 (1.002-1.030); Urine Bilirubin Dipstick Negative (Negative); Urine Clarity Clear (Clear); Urine Urobilinogen Normal (Normal)
[2022-02-11 07:08] LABS: Bacteria 1+ /hpf (None Seen); Hyaline Cast 0-5 SEEN /lpf (0-5); Mucous, Urine 1+ /hpf (<or=2+); Red Blood Cells-Urine 0-5 SEEN /hpf (0-5); White Blood Cells 0-5 SEEN /hpf (0-5)
[2022-02-11 07:11] LABS: Urea Nitrogen, Urine 835 mg/dL (NO RANGE EST.); Urine Sodium 24 mmol/L (Not Establ.)
--- NOTE | 2022-02-11 08:12 | PN.HOSP_ITS ---
Objective Data Objective Data Vital Signs: Vital Signs Temp Pulse Resp BP Pulse Ox 37.4 C H 106 H 20 H 126/82 H 93 02/11/22 06:20 02/11/22 07:00 02/11/22 06:20 02/11/22 06:20 02/11/22 06:20 Oxygen Flow Rate (L/min) 2 Oxygen Delivery Method Nasal Cannula Weight: 144.1 kg Body Mass Index (BMI) 39.6 Lab / Micro Data Result Diagrams: 02/11/22 04:05 02/11/22 04:05 Labs: Laboratory Results - last 24 hr 02/10/22 11:10: WBC 15.7 H, RBC 6.13, Hgb 17.0 H, Hct 54.7 H, MCV 89.2, MCH 27.7, MCHC 31.1 L, RDW Std Deviation 52.5 H, RDW Coeff of Fatuma 16.9 H, Plt Count 327, MPV 10.6, Immature Gran % (Auto) 0.700, Neut % (Auto) 78.0 H, Lymph % (Auto) 10.9 L, [place] % (Auto) 8.8, Eos % (Auto) 0.8, Baso % (Auto) 0.8, Absolute Neuts (auto) 12.3 H, Absolute Lymphs (auto) 1.72, Nucleated RBC % 0 02/10/22 11:10: Sodium 137, Potassium 4.6, Chloride 105, Carbon Dioxide 22.0, Anion Gap 10, BUN 35 H, Creatinine 1.52 H, Est GFR (MDRD) Af Amer 59 L, Est GFR (MDRD) Non-Af 49 L, BUN/Creatinine Ratio 23.0 H, Glucose 146 H, Calcium 9.1, Total Bilirubin 0.80, AST 216 H, ALT 47, Alkaline Phosphatase 87, Total Creatine Kinase 9774 H, Troponin I High Sens 8, Total Protein 8.1, Albumin 3.3, Globulin 4.8 H, Albumin/Globulin Ratio 0.7 L 02/10/22 11:10: Phosphorus 4.7, Magnesium 2.5 02/10/22 12:27: Urine Color Yellow, Urine Clarity Clear, Urine pH 5.0, Ur Specific [place] 1.030, Urine Protein 30 H, Urine Glucose (UA) Normal, Urine Ketones 15 H, Urine Occult Blood 250 H, Urine Nitrite Negative, Urine Bilirubin 1 H, Urine Urobilinogen 1 H, Ur Leukocyte Esterase 25 H, Urine RBC 5-10 SEEN, Urine WBC 0-5 SEEN, Ur Squamous Epith Cells 0-5 SEEN, Urine Bacteria 0 SEEN, Hyaline Casts 10-25 SEEN, Urine Mucus 2+ 02/10/22 16:47: POC Glucose 187 H 02/10/22 17:50: POC Glucose 184 H 02/10/22 20:32: Sodium 135 L, Potassium 5.5 H, Chloride 107, Carbon Dioxide 18.0 L, BUN 35 H, Creatinine 1.16, Estim Creat Clear Calc 75.88, Est GFR (MDRD) Af Amer 81, Est GFR (MDRD) Non-Af 67, BUN/Creatinine Ratio 30.2 H, Glucose 196 H, Calcium 8.8, Phosphorus 3.6, Albumin 2.9 L 02/10/22 23:15: POC Glucose 224 H 02/11/22 04:05: WBC 16.9 H, RBC 6.19, Hgb 17.3 H, Hct 55.3 H, MCV 89.3, MCH 27.9, MCHC 31.3 L, RDW Std Deviation 52.5 H, RDW Coeff of Fatuma 16.9 H, Plt Count 312, MPV 10.8, Immature Gran % (Auto) 0.800, Neut % (Auto) 83.4 H, Lymph % (Auto) 7.3 L, [place] % (Auto) 7.9, Eos % (Auto) 0.1, Baso % (Auto) 0.5, Absolute Neuts (auto) 14.1 H, Absolute Lymphs (auto) 1.23, Nucleated RBC % 0 02/11/22 04:05: Sodium 135 L, Potassium 5.3 H, Chloride 107, Carbon Dioxide 17.0 L, Anion Gap 11, BUN 42 H, Creatinine 1.18, Estim Creat Clear Calc 74.59, Est GFR (MDRD) Af Amer 80, Est GFR (MDRD) Non-Af 66, BUN/Creatinine Ratio 35.6 H, Glucose 272 H, Calcium 9.0, Triglycerides 77, Cholesterol 106, LDL Cholesterol 33, VLDL Cholesterol 15, HDL Cholesterol 58, TSH 2.47 02/11/22 06:24: POC Glucose 280 H 02/11/22 : Urine Color Yellow, Urine Clarity Clear, Urine pH 5.0, Ur Specific [place] 1.025, Urine Protein 15 H, Urine Glucose (UA) 100 H, Urine Ketones 50 H, Urine Occult Blood 150 H, Urine Nitrite Negative, Urine Bilirubin Negative, Urine Urobilinogen Normal, Ur Leukocyte Esterase 25 H, Urine RBC 0-5 SEEN, Urine WBC 0-5 SEEN, Ur Squamous Epith Cells 0 SEEN, Urine Bacteria 1+, Hyaline Casts 0-5 SEEN, Urine Mucus 1+ 02/11/22 : Ur Random Sodium 24, Urine Creatinine 158.00, Urine Urea Nitrogen 835 Micro: Microbiology 02/10/22 11:10 Nasal Secretion SARS-CoV-2 & FLU Antigen (Rapid) - Final Radiography Diagnostic Testing: Radiology Impression Brain CT 02/10/22 11:45 IMPRESSION: No acute intracranial process identified. Chronic small vessel ischemic gliosis. Electronically Signed: Dory Hirsch MD at 12:26 EDT , Chest X-Ray 02/10/22 11:50 IMPRESSION: Mild right basilar opacity, likely atelectasis or pneumonia with mild pleural effusion. Electronically Signed: Dory Hirsch MD at 12:22 EDT , Elbow X-Ray 02/10/22 11:50 IMPRESSION: No acute fracture or dislocation identified in the right elbow. Electronically Signed: Dory Hirsch MD at 12:20 EDT , Head/Neck CTA 02/10/22 13:59 IMPRESSION: No evidence for significant stenosis in the carotid or vertebral arteries of the neck. No evidence of focal vascular abnormality in the [place] region. Electronically Signed: Dory Hirsch MD at 15:01 EDT Reading Location ID and State: [facility] / [place] Tel , Service support , Assessment & Plan Assessment/Plan (1) Acute alteration in mental status: (2) Hypoglycemia: (3) Rhabdomyolysis: QUALIFIERS: Rhabdomyolysis type: non-traumatic Qualified Code(s): M62.82 - Rhabdomyolysis PLAN: 1. Acute encephalopathy * most likely due to stroke/complicated with metabolic encephalopathy * MRI brain ordered. * Stroke protocol for NIH score monitor, PT OT speech and swallow evaluation, BP and glucose control. * 2D echo ordered for tomorrow a.m. Patient on aspirin. Hold atorvastatin for rhabdomyolysis. * SOC consult once work-up is done. * TSH WNL. 2. Acute on chronic HFpEF: * Patient had last echo in 05/11/2019 reported EF 55% stage I diastolic dysfunction hypokinetic basal wall. Structurally normal valves. * Chest x-ray image reviewed shows poor inspiratory effort and therefore cannot rule out pulmonary edema. Lasix 40 mg IV given. 3. Acute kidney injury with CKD stage II, diabetic nephropathy: * resolved * Patient baseline creatinine clearance about 75 mill per hour. Admitted with BUN/creatinine 35/1.52. * Nephrology following, DEAN felt to be prerenal 4. Rhabdomyolysis * 2/2 prolonged laying on the chair. * on IVF * recheck CPK 5. Diabetes mellitus type 2 with hypoglycemia with history of long-term complication: Patient has diabetic nephropathy, neuropathy multiple feet wound and amputation in the past. * Accu-Cheks every 6 hourly. Glucose in BMP is 146. Patient follows wound clinic. Wound nurse consulted. 6. Chronic conditions: * Hypertension: BP was elevated 155/73. Most recently normal. EKG sinus tachycardia. * Dyslipidemia: Hold statin as patient having rhabdomyolysis. * Class III obesity with BMI of 39.6 kg/m?. Weight loss advised * Obstructive sleep apnea: CPAP at bedtime * GERD with last admission for Kalie-Acevedo tear and gastritis: Patient had EGD at that time. Continue PPI * BPH ?Patient is on tamsulosin * Chronic cigarette smoking/Tobacco dependence: Nicotine patch when patient is more awake. * Anxiety and depression: Hold antidepressant medication as patient is lethargy. 7. DVT prophylaxis: Heparin 5000 subcutaneous every 8 hourly as patient is high risk for thromboembolism but is also high risk of bleeding. Discontinue if platelet count drops less than 50,000 or hemoglobin less than 8 g%
[2022-02-11 08:26] LABS: Hemoglobin A1c 5.8 % (3.8-5.6)
--- NOTE | 2022-02-11 10:45 | NURSING ---
1000 NIH and VS late d/t pt being off unit for MRI.
--- NOTE | 2022-02-11 11:24 | PN.RENAL_ITS ---
Subjective Subjective no new events Objective Data Objective Data Vital Signs: Vital Signs Temp Pulse Resp BP Pulse Ox 97.4 F L 103 H 22 H 127/65 H 95 02/11/22 10:46 02/11/22 10:46 02/11/22 10:46 02/11/22 10:46 02/11/22 10:46 Oxygen Flow Rate (L/min) 2 Oxygen Delivery Method Room Air Weight: 144.1 kg Body Mass Index (BMI) 39.6 Intake & Output: Intake and Output for Last 24 Hours 02/09/22 02/10/22 02/11/22 23:59 23:59 23:59 Intake Total 551.25 / 551.25 Balance 551.25 / 551.25 Lab / Micro Data Result Diagrams: 02/11/22 04:05 02/11/22 04:05 Labs: Laboratory Results - last 24 hr 02/10/22 11:10: WBC 15.7 H, RBC 6.13, Hgb 17.0 H, Hct 54.7 H, MCV 89.2, MCH 27.7, MCHC 31.1 L, RDW Std Deviation 52.5 H, RDW Coeff of Fatuma 16.9 H, Plt Count 327, MPV 10.6, Immature Gran % (Auto) 0.700, Neut % (Auto) 78.0 H, Lymph % (Auto) 10.9 L, [place] % (Auto) 8.8, Eos % (Auto) 0.8, Baso % (Auto) 0.8, Absolute Neuts (auto) 12.3 H, Absolute Lymphs (auto) 1.72, Nucleated RBC % 0 02/10/22 11:10: Sodium 137, Potassium 4.6, Chloride 105, Carbon Dioxide 22.0, Anion Gap 10, BUN 35 H, Creatinine 1.52 H, Est GFR (MDRD) Af Amer 59 L, Est GFR (MDRD) Non-Af 49 L, BUN/Creatinine Ratio 23.0 H, Glucose 146 H, Calcium 9.1, Total Bilirubin 0.80, AST 216 H, ALT 47, Alkaline Phosphatase 87, Total Creatine Kinase 9774 H, Troponin I High Sens 8, Total Protein 8.1, Albumin 3.3, Globulin 4.8 H, Albumin/Globulin Ratio 0.7 L 02/10/22 11:10: Phosphorus 4.7, Magnesium 2.5 05/22/22 12:27: Urine Color Yellow, Urine Clarity Clear, Urine pH 5.0, Ur Specific [place] 1.030, Urine Protein 30 H, Urine Glucose (UA) Normal, Urine Ketones 15 H, Urine Occult Blood 250 H, Urine Nitrite Negative, Urine Bilirubin 1 H, Urine Urobilinogen 1 H, Ur Leukocyte Esterase 25 H, Urine RBC 5-10 SEEN, Urine WBC 0-5 SEEN, Ur Squamous Epith Cells 0-5 SEEN, Urine Bacteria 0 SEEN, Hyaline Casts 10-25 SEEN, Urine Mucus 2+ 02/10/22 16:47: POC Glucose 187 H 02/10/22 17:50: POC Glucose 184 H 02/10/22 20:32: Sodium 135 L, Potassium 5.5 H, Chloride 107, Carbon Dioxide 18.0 L, BUN 35 H, Creatinine 1.16, Estim Creat Clear Calc 75.88, Est GFR (MDRD) Af Amer 81, Est GFR (MDRD) Non-Af 67, BUN/Creatinine Ratio 30.2 H, Glucose 196 H, Calcium 8.8, Phosphorus 3.6, Albumin 2.9 L 02/10/22 23:15: POC Glucose 224 H 02/11/22 04:05: WBC 16.9 H, RBC 6.19, Hgb 17.3 H, Hct 55.3 H, MCV 89.3, MCH 27.9, MCHC 31.3 L, RDW Std Deviation 52.5 H, RDW Coeff of Fatuma 16.9 H, Plt Count 312, MPV 10.8, Immature Gran % (Auto) 0.800, Neut % (Auto) 83.4 H, Lymph % (Auto) 7.3 L, [place] % (Auto) 7.9, Eos % (Auto) 0.1, Baso % (Auto) 0.5, Absolute Neuts (auto) 14.1 H, Absolute Lymphs (auto) 1.23, Nucleated RBC % 0 02/11/22 04:05: Sodium 135 L, Potassium 5.3 H, Chloride 107, Carbon Dioxide 17.0 L, Anion Gap 11, BUN 42 H, Creatinine 1.18, Estim Creat Clear Calc 74.59, Est GFR (MDRD) Af Amer 80, Est GFR (MDRD) Non-Af 66, BUN/Creatinine Ratio 35.6 H, Glucose 272 H, Calcium 9.0, Triglycerides 77, Cholesterol 106, LDL Cholesterol 33, VLDL Cholesterol 15, HDL Cholesterol 58, TSH 2.47 02/11/22 04:05: Hemoglobin A1c 5.8 H 02/11/22 06:24: POC Glucose 280 H 02/11/22 : Urine Color Yellow, Urine Clarity Clear, Urine pH 5.0, Ur Specific [place] 1.025, Urine Protein 15 H, Urine Glucose (UA) 100 H, Urine Ketones 50 H, Urine Occult Blood 150 H, Urine Nitrite Negative, Urine Bilirubin Negative, Urine Urobilinogen Normal, Ur Leukocyte Esterase 25 H, Urine RBC 0-5 SEEN, Urine WBC 0-5 SEEN, Ur Squamous Epith Cells 0 SEEN, Urine Bacteria 1+, Hyaline Casts 0-5 SEEN, Urine Mucus 1+ 02/11/22 : Ur Random Sodium 24, Urine Creatinine 158.00, Urine Urea Nitrogen 835 Micro: Microbiology 02/10/22 11:10 Nasal Secretion SARS-CoV-2 & FLU Antigen (Rapid) - Final Radiography Diagnostic Testing: Radiology Impression Brain CT 02/10/22 11:45 IMPRESSION: No acute intracranial process identified. Chronic small vessel ischemic gliosis. Electronically Signed: Dory Hirshc MD at 12:26 EDT Reading Location ID and State: [facility] / OR Tel , Service support , Chest X-Ray 02/10/22 11:50 IMPRESSION: Mild right basilar opacity, likely atelectasis or pneumonia with mild pleural effusion. Electronically Signed: Dory Hirsch MD at 12:22 EDT , Elbow X-Ray 02/10/22 11:50 IMPRESSION: No acute fracture or dislocation identified in the right elbow. Electronically Signed: Dory Hirsch MD at 12:20 EDT , Head/Neck CTA 02/10/22 13:59 IMPRESSION: No evidence for significant stenosis in the carotid or vertebral arteries of the neck. No evidence of focal vascular abnormality in the [place] region. Electronically Signed: Dory Hirsch MD at 15:01 EDT , Brain MRI 02/11/22 05:55 IMPRESSION: Involutional changes of the brain, as described above. Electronically Signed: Kole Terry MD at 11:00 EDT , Echocardiogram 02/11/22 05:55 Interpretation Summary Normal LV size. Left ventricular systolic function is normal. The estimated ejection fraction is 75 %. No regional wall motion abnormalities noted. Bubble contrast study negative for right to left interatrial shunt. Mild concentric left ventricular hypertrophy. Contrast injection was performed. Ordering Physician: Jon Malone Referring Physician: Jaime Meyer Chi Performed By: Keny Tijerina RCS Physical Exam Narrative General: Lethargic but arousable with voice HEENT: Normocephalic atraumatic mucous membrane dry. Neck: Supple no visible JVD. Heart: Tachycardic S1, S2. No rubs or murmurs. Lungs: Decreased breath sound at bases with expiratory wheezing. Abdomen: Normal bowel sound, soft, nontender, no guarding or rebound. Extremities: No clubbing, cyanosis or edema. Musculoskeletal: Full passive range of motion, no joint swelling. Psychiatric: Flat affect. Skin: Warm and dry. No visible rashes. Assessment & Plan Assessment/Plan (1) DEAN (acute kidney injury): PLAN: - The patient has normal baseline renal function with serum creatini ne of 0.8 to 0.9 mg/dL at baseline. -Suspect DEAN is due to prerenal azotemia. I suspect this is more from true volume depletion versus cardiorenal DEAN. -Echocardiogram done in October 2021 showed normal EF at 60%. (2) Rhabdomyolysis: QUALIFIERS: Rhabdomyolysis type: non-traumatic Qualified Code(s): M62.82 - Rhabdomyolysis PLAN: -CPK is 9774. fluids as tolerated (3) Dyspnea: PLAN: - stable (4) Weakness: PLAN: - The patient does present with facial drooping and right-sided we akness. However, CT head did not show acute pathology. -MRI pending (5) Hypoglycemia: PLAN: - The patient presented with hypoglycemia which has been corrected.
--- NOTE | 2022-02-11 11:30 | CASEMGMT ---
RN HENNY assessment: Face to Face with patient for initial transition planning/care coordination assessment. RN CM introduced self and role at [facility], pt voices understanding and consents to assessment. Pt is lying in bed in no distress on 2-4L nc. Pt is alert to self only and unable to answer questions. Pt's son, Jose Alejandro Wynne, is at bedside and answers questions to the best of his knowledge. Care providers, pharmacy, and demographics verified/updated. Presentation: Pt c/o weakness, hypoglycemia, aphasia Admitting dx: AMS, Right sided weakness PCP: Mitch Specialists: oma Claudio(sees in wound clinic, has been to these appts); stephanie Arteaga(has no showed last 2 visits, 10/25 and 11/15); Friend, GI(no show 12/03/21, cxl'd appt 01/17/22) Preferred Pharmacy: [facility] Rajat Insurance: [employer] [facility] Living Will/HPOA: Per son, Jose Alejandro, pt does have LW/HPOA and is aware that they are not on file at [facility]. Jose Alejandro states that pt's son, Matthew Wynne, is HPOA. LNOK: Matthew Wynne, son; Jose Alejandro Wynne, son; Marybeth Ramírez, sister Living Arrangements: Pt lives alone in mobile home with ramp and 1 step in and per son, pt has been having increasing difficulty caring for self. Son states that he and his brother have been taking turns visiting pt weekly d/t pt difficulty caring for self. Transportation: Per son, pt can drive, but he uses [facility] van transport at times. DME/HHC: Pt has the following DME: walker, shower chair, and has been attempting to obtain motorized w/c. Pt has been to [facility] and [facility] in past. Pt has also had [facility] in recent past. Son states concerns with pt going home at discharge. Son provided list of SNF providers including quality and resource use data and consistent with the pt's preferred geographic region, medical needs, and insurance network. Son is corresponding with other family members and will notify CM with SNF choices. Pt is retired. Pt does smoke cigarettes but does not drink ETOH. Son voices no further concerns/needs. CM to follow for therapy evals and any further discharge planning/needs. Advised son to ask for CM if any further questions/concerns/needs arise, voices understanding. Plan: SNF, pending family decision on facility and pt med cleared Neftali RN CM
--- NOTE | 2022-02-11 11:36 | PN.HOSP_ITS ---
Documented by User: Monica Barillas SENIOR RADIATION PROTECTION TECHNICIAN, SENIOR RADIATION PROTECTION TECHNICIAN-C 02/11/22 12:13 Subjective Subjective Patient seen and examined. Drowsy on assessment, minimally verbally responsive. Reports right arm pain with movement. Unable to lift right arm off of bed. Objective Data Objective Data Vital Signs: Vital Signs Temp Pulse Resp BP Pulse Ox 97.4 F L 103 H 22 H 127/65 H 95 02/11/22 10:46 02/11/22 10:46 02/11/22 10:46 02/11/22 10:46 02/11/22 10:46 Oxygen Flow Rate (L/min) 2 Oxygen Delivery Method Room Air Weight: 317 lb 10.978 oz Body Mass Index (BMI) 39.6 Intake & Output: Intake and Output for Last 24 Hours 02/09/22 02/10/22 02/11/22 23:59 23:59 23:59 Intake Total 551.25 / 551.25 Balance 551.25 / 551.25 Lab / Micro Data Result Diagrams: 02/11/22 04:05 02/11/22 04:05 Labs: Laboratory Results - last 24 hr 02/10/22 11:10: WBC 15.7 H, RBC 6.13, Hgb 17.0 H, Hct 54.7 H, MCV 89.2, MCH 27.7, MCHC 31.1 L, RDW Std Deviation 52.5 H, RDW Coeff of Fatuma 16.9 H, Plt Count 327, MPV 10.6, Immature Gran % (Auto) 0.700, Neut % (Auto) 78.0 H, Lymph % (Auto) 10.9 L, [place] % (Auto) 8.8, Eos % (Auto) 0.8, Baso % (Auto) 0.8, Absolute Neuts (auto) 12.3 H, Absolute Lymphs (auto) 1.72, Nucleated RBC % 0 02/10/22 11:10: Sodium 137, Potassium 4.6, Chloride 105, Carbon Dioxide 22.0, Anion Gap 10, BUN 35 H, Creatinine 1.52 H, Est GFR (MDRD) Af Amer 59 L, Est GFR (MDRD) Non-Af 49 L, BUN/Creatinine Ratio 23.0 H, Glucose 146 H, Calcium 9.1, Total Bilirubin 0.80, AST 216 H, ALT 47, Alkaline Phosphatase 87, Total Creatine Kinase 9774 H, Troponin I High Sens 8, Total Protein 8.1, Albumin 3.3, Globulin 4.8 H, Albumin/Globulin Ratio 0.7 L 02/10/22 11:10: Phosphorus 4.7, Magnesium 2.5 02/10/22 12:27: Urine Color Yellow, Urine Clarity Clear, Urine pH 5.0, Ur Specific [place] 1.030, Urine Protein 30 H, Urine Glucose (UA) Normal, Urine Ketones 15 H, Urine Occult Blood 250 H, Urine Nitrite Negative, Urine Bilirubin 1 H, Urine Urobilinogen 1 H, Ur Leukocyte Esterase 25 H, Urine RBC 5-10 SEEN, Urine WBC 0-5 SEEN, Ur Squamous Epith Cells 0-5 SEEN, Urine Bacteria 0 SEEN, Hyaline Casts 10-25 SEEN, Urine Mucus 2+ 02/10/22 16:47: POC Glucose 187 H 02/10/22 17:50: POC Glucose 184 H 02/10/22 20:32: Sodium 135 L, Potassium 5.5 H, Chloride 107, Carbon Dioxide 18.0 L, BUN 35 H, Creatinine 1.16, Estim Creat Clear Calc 75.88, Est GFR (MDRD) Af Amer 81, Est GFR (MDRD) Non-Af 67, BUN/Creatinine Ratio 30.2 H, Glucose 196 H, Calcium 8.8, Phosphorus 3.6, Albumin 2.9 L 02/10/22 23:15: POC Glucose 224 H 02/11/22 04:05: WBC 16.9 H, RBC 6.19, Hgb 17.3 H, Hct 55.3 H, MCV 89.3, MCH 27.9, MCHC 31.3 L, RDW Std Deviation 52.5 H, RDW Coeff of Fatuma 16.9 H, Plt Count 312, MPV 10.8, Immature Gran % (Auto) 0.800, Neut % (Auto) 83.4 H, Lymph % (Auto) 7.3 L, [place] % (Auto) 7.9, Eos % (Auto) 0.1, Baso % (Auto) 0.5, Absolute Neuts (auto) 14.1 H, Absolute Lymphs (auto) 1.23, Nucleated RBC % 0 02/11/22 04:05: Sodium 135 L, Potassium 5.3 H, Chloride 107, Carbon Dioxide 17.0 L, Anion Gap 11, BUN 42 H, Creatinine 1.18, Estim Creat Clear Calc 74.59, Est GFR (MDRD) Af Amer 80, Est GFR (MDRD) Non-Af 66, BUN/Creatinine Ratio 35.6 H, Glucose 272 H, Calcium 9.0, Triglycerides 77, Cholesterol 106, LDL Cholesterol 33, VLDL Cholesterol 15, HDL Cholesterol 58, TSH 2.47 02/11/22 04:05: Hemoglobin A1c 5.8 H 02/11/22 06:24: POC Glucose 280 H 02/11/22 : Urine Color Yellow, Urine Clarity Clear, Urine pH 5.0, Ur Specific [place] 1.025, Urine Protein 15 H, Urine Glucose (UA) 100 H, Urine Ketones 50 H, Urine Occult Blood 150 H, Urine Nitrite Negative, Urine Bilirubin Negative, Urine Urobilinogen Normal, Ur Leukocyte Esterase 25 H, Urine RBC 0-5 SEEN, Urine WBC 0-5 SEEN, Ur Squamous Epith Cells 0 SEEN, Urine Bacteria 1+, Hyaline Casts 0-5 SEEN, Urine Mucus 1+ 02/11/22 : Ur Random Sodium 24, Urine Creatinine 158.00, Urine Urea Nitrogen 835 Micro: Microbiology 02/10/22 11:10 Nasal Secretion SARS-CoV-2 & FLU Antigen (Rapid) - Final Radiography Diagnostic Testing: Radiology Impression Brain CT 02/10/22 11:45 IMPRESSION: No acute intracranial process identified. Chronic small vessel ischemic gliosis. Electronically Signed: Dory Hirsch MD at 12:26 EDT , Chest X-Ray 02/10/22 11:50 IMPRESSION: Mild right basilar opacity, likely atelectasis or pneumonia with mild pleural effusion. Electronically Signed: Dory Hirsch MD at 12:22 EDT , Elbow X-Ray 02/10/22 11:50 IMPRESSION: No acute fracture or dislocation identified in the right elbow. Electronically Signed: Dory Hirsch MD at 12:20 EDT , Head/Neck CTA 02/10/22 13:59 IMPRESSION: No evidence for significant stenosis in the carotid or vertebral arteries of the neck. No evidence of focal vascular abnormality in the [place] region. Electronically Signed: Dory Hirsch MD at 15:01 EDT , Brain MRI 02/11/22 05:55 IMPRESSION: Involutional changes of the brain, as described above. Electronically Signed: Kole Terry MD at 11:00 EDT , Echocardiogram 02/11/22 05:55 Interpretation Summary Normal LV size. Left ventricular systolic function is normal. The estimated ejection fraction is 75 %. No regional wall motion abnormalities noted. Bubble contrast study negative for right to left interatrial shunt. Mild concentric left ventricular hypertrophy. Contrast injection was performed. Ordering Physician: Jon Malone Referring Physician: Jaime Meyer Chi Performed By: Keny Tijerina RCS Physical Exam Const Constitutional Narrative: Drowsy, oriented X3 HEENT normocephalic Mouth: dry mucous membranes Eyes PERRL, EOMs intact bilaterally and conjunctivae normal Neck no lymphadenopathy Resp clear to auscultation bilaterally Auscultation: diminished lung sounds Cardio regular rate, regular rhythm and no murmurs Peripheral Pulses: pulses 2+ throughout GI normal to inspection, nondistended, normoactive bowel sounds, non-tender and non-distended Extremity normal to inspection Extremity Narrative: s/p Left transmetatarsal amputation Skin Skin Narrative: Right bicep area abrasions. Stage II decubitus coccyx ulceration-stool present during assessment. Left medial plantar diabetic ulceration-granulation tissue present. No evidence of infection. Several right lower extremity venous stasis ulcerations. Neuro CN's II-XII intact bilaterally and deep tendon reflexes 2+ bilaterally Neuro Narrative: Right arm weakness with no effort against gravity, right lower extremity weakness with some effort against gravity. Right-sided ataxia. Aphasia/dysarthria. Psych mental status grossly normal and affect normal Assessment & Plan Assessment/Plan (1) Acute alteration in mental status: PLAN: 1. Strokelike symptoms-MRI of brain negative for stroke. CTA of head and neck unremarkable. Echocardiogram with EF 75%, bubble contrast study negative for xdeli-od-nagh interatrial shunt. PT/OT/ST. Consult [facility] neurology for further evaluation. It is possible patient's symptoms are related to metabolic encephalopathy as well as right-sided pain related to fall at home/found down contributing to weakness. Obtain right shoulder x-ray. Continue aspirin, statin. Case management consult for discharge planning. Will likely need placement. 2. Metabolic encephalopathy-hold gabapentin, sedating regimen. IV fluids. No evidence of infectious process. 3. Acute kidney injury with hyperkalemia-likely prerenal. Prior renal function normal, no CKD. Nephrology following. Trend BMP. Potassium trending down. Renal function returned to normal. 3. Acute traumatic rhabdomyolysis-secondary to being found down for prolonged time. IV fluids. Trend CK. 4. Acute on chronic heart failure with preserved ejection fraction-chest x-ray admission with congestion. IV Lasix x1. Strict I&O. Hold further diuretics. 5. Type 2 diabetes qrdbpcaw-Hacu-Kwudk with sliding scale insulin. Hemoglobin A1c 5.8%. 6. Chronic wounds, present on admission-follows at wound center. Stage II decubitus coccyx ulceration-stool present during assessment. Left medial plantar diabetic ulceration-granulation tissue present. No evidence of infection. Several right lower extremity venous stasis ulcerations. Wound RN consult. Mepilex to coccyx ulceration. 7. Hypertension-stable, lisinopril on hold. Trend BP. 8. Hyperlipidemia-continue statin. 9. ANT-continue home CPAP regimen. 10. GERD-continue PPI. 11. BPH-on Flomax. 12. Tobacco dependence-encouraged cessation. Nicotine replacement patch if desired. 13. Anxiety/depression-on bupropion, doxepin. DVT prophylaxis-Heparin subcu This patient was seen by NAGA Mercado under the supervision of Dr. Alberto. Time spent examining patient, reviewing data and subsequent management of care: 15 minutes Documented by User: Dr. Roni Alberto, 02/11/22 14:56 Subjective Subjective Awake. Moans his answers barely coherently. Objective Data Lab / Micro Data Result Diagrams: 02/11/22 04:05 02/11/22 04:05 Physical Exam Const alert and no apparent distress Resp normal respiratory effort, no retractions, no use of accessory muscles and clear to auscultation bilaterally Cardio regular rate, regular rhythm, S1 normal heart sound and S2 normal heart sound GI normal to inspection, nondistended, normoactive bowel sounds, soft to palpation, non-tender and non-distended Extremity normal to inspection Skin Skin Narrative: Stage II decubitus ulcer on buttocks. Stage II ulcer on back of right arm. Neuro Neuro Narrative: Dysarthria. Diffusely weak throughout. Assessment & Plan Assessment/Plan (1) Acute alteration in mental status: (2) Rhabdomyolysis: QUALIFIERS: Rhabdomyolysis type: non-traumatic Qualified Code(s): M62.82 - Rhabdomyolysis PLAN: 1. Acute encephalopathy * most likely due to stroke/complicated with metabolic encephalopathy * MRI brain showed chronic involutional changes. ?Hummingbird sign/Ayo Mouse sign? Concern for underlying neurdegenerative d/o (e.g., PSP, v other) * SOC consult once work-up is done. * TSH WNL. 2. Acute on chronic HFpEF: * Patient had last echo in 05/11/2019 reported EF 55% stage I diastolic dysfunction hypokinetic basal wall. Structurally normal valves. * Chest x-ray image reviewed shows poor inspiratory effort and therefore cannot rule out pulmonary edema. Lasix 40 mg IV given. 3. Acute kidney injury with CKD stage II, diabetic nephropathy: * resolved * Patient baseline creatinine clearance about 75 mill per hour. Admitted with BUN/creatinine 35/1.52. * Nephrology following, DEAN felt to be prerenal 4. Rhabdomyolysis * 2/2 prolonged laying on the chair. * on IVF * recheck CPK 5. Diabetes mellitus type 2 with hypoglycemia with history of long-term complication: Patient has diabetic nephropathy, neuropathy multiple feet wound and amputation in the past. * Accu-Cheks every 6 hourly. Glucose in BMP is 146. Patient follows wound clinic. Wound nurse consulted. 6. Chronic conditions: * Hypertension: BP was elevated 155/73. Most recently normal. EKG sinus tachycardia. * Dyslipidemia: Hold statin as patient having rhabdomyolysis. * Class III obesity with BMI of 39.6 kg/m?. Weight loss advised * Obstructive sleep apnea: CPAP at bedtime * GERD with last admission for Kalie-Acevedo tear and gastritis: Patient had EGD at that time. Continue PPI * BPH ?Patient is on tamsulosin * Chronic cigarette smoking/Tobacco dependence: Nicotine patch when patient is more awake. * Anxiety and depression: Hold antidepressant medication as patient is lethargy. 7. DVT prophylaxis: Heparin 5000 subcutaneous every 8 hourly as patient is high risk for thromboembolism but is also high risk of bleeding. Discontinue if platelet count drops less than 50,000 or hemoglobin less than 8 g% Greater than 30 minutes reviewing data, vitals, previous documentation. Charges/Coding Visit Charges Inpatient E&M: 311[address] [facility] L3
[2022-02-11 11:56] LABS: Bedside Glucose 325 mg/dL (74-106)
--- NOTE | 2022-02-11 11:58 | TELEMED_ITS ---
[facility] Telemed has confirmed receipt of a request for visit. This document confirms receipt of the order initiating the consult. To find the results of the consultation, please view the patient's reports for the scanned Telemed Consult.
--- NOTE | 2022-02-11 13:27 | RAD_ITS ---
STUDY: X-RAY - RIGHT SHOULDER REASON FOR EXAM: Male, 66 years old. Right shoulder pain, fall TECHNIQUE: 2 view(s) of the shoulder. COMPARISON: None. FINDINGS: Please see the impression. RAD/Shoulder min 2 Views IMPRESSION: Markedly limited study by the patient''s body habitus and positioning. No acute displaced fracture or dislocation the right shoulder. A nondisplaced fracture cannot be excluded. 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 Electronically Signed: Darío Negrete MD at 19:25 EDT ,
--- NOTE | 2022-02-11 14:00 | CASEMGMT ---
This RN CM back to room to see if son picked a SNF and he states family is discussing and son asks if he can call in later with choices. Son aware that he can call later and provided PCU direct line, voices understanding. Pat, PCU secretary specialist, updated on possible call, voices understanding. Neftali SULLIVAN CM
--- NOTE | 2022-02-11 16:49 | MRI_ITS ---
EXAM: MR CERVICAL SPINE WITHOUT AND WITH INTRAVENOUS CONTRAST CLINICAL INDICATION: R/O paraspinal abscess Technologist Notes Patient could not hold still, rt sided weak,rt facial droop,confusion TECHNIQUE: Multiplanar and multisequence MR images of the cervical spine without and with intravenous contrast were performed. This report was created using [employer] report Detectent technology. CONTRAST: IV 28ml dotarem COMPARISON: None. FINDINGS: VERTEBRAE: See below. SPINAL CORD: Unremarkable in signal and morphology. SOFT TISSUES: Unremarkable. No prevertebral soft tissue swelling. LYMPH NODES: Unremarkable. There is no cervical adenopathy. DISCS/SPINAL CANAL/NEURAL FORAMINA: C2-C3: C2-3: Normal endplates. Normal disc height and morphology. Normal central canal and intervertebral neuroforamina. C3-C4: C3-4: Loss of intervertebral disc height. There is endplate spondylosis of the vertebral body. There is bilateral facet arthropathy. Posterior disc bulge. Mild spinal stenosis. Normal neuroforamina. C4-C5: C4-5: Loss of intervertebral disc height. There is endplate spondylosis of the vertebral body. There is bilateral facet arthropathy. Posterior disc bulge. Mild spinal stenosis. Normal neuroforamina. C5-C6: C5-6: Loss of intervertebral disc height. There is endplate spondylosis of the vertebral body. There is bilateral facet arthropathy. Posterior disc bulge. Mild spinal stenosis. Normal neuroforamina. C6-C7: C6-7: Normal endplates. Normal disc height and morphology. Normal central canal and intervertebral neuroforamina. C7-T1: Normal endplates. Normal disc height and morphology. Normal central canal and intervertebral neuroforamina. MRI/Spine Cervical W/WO Contrast IMPRESSION: Multilevel degenerative changes, as described above. Electronically Signed: Sumeet Asif MD at 20:12 EDT ,
[2022-02-11 17:01] LABS: CPK Total, Creatine Kinase 10693 U/L (39-308)
[2022-02-11 17:35] LABS: Bedside Glucose 336 mg/dL (74-106)
[2022-02-11 19:20] LABS: Fibrinogen 815 mg/dl (203-444)
[2022-02-11 19:22] LABS: Erythrocyte Sedimentation Rate 87 mm/hr (0-20)
[2022-02-11 23:45] LABS: Bedside Glucose 325 mg/dL (74-106)
[2022-02-12] VITALS (18 sets, daily range): BP systolic 110–135; BP diastolic 66–74; PULSE 89–101; RESP 14–23; TEMP 35.8–36.9; O2SAT 94–97
[2022-02-12] MEDS: Menthol/Lanolin/Calamine/Znox 113 GM Tube 1 APPLIC TOPICAL ×2 (05:01→22:55)
[2022-02-12] MEDS: Heparin Injection (Vial) 5,000 UNIT/ML VIAL 5000 UNIT SC ×2 (05:02→22:55)
[2022-02-12] MEDS: Insulin Lispro 100 UNIT/ML INSULN.PEN SC ×3 (05:13→16:36)
[2022-02-12 06:43] LABS: Absolute Lymphocyte Count 1.97 X10^3/uL (0.83-4.51); Absolute Neutrophil Count 10.2 X10^3/uL (2.0-7.7); Basophil# 0.16 X10^3/uL; Basophil% 1.2 % (0-1); Eosinophil# 0.09 X10^3/uL; Eosinophils% 0.7 % (0-5); Hematocrit 52.3 % (40-54); Hemoglobin 16.6 g/dL (13.0-16.5); Lymphocyte # 1.97 X10^3/ul (0.83-4.51); Lymphocyte % 14.3 % (19-41); Mean Corp Hgb Conc 31.7 g/dL (32-36); Mean Corpuscular Hgb 28.6 pg (27.0-32.0); Mean Corpuscular Volume 90.2 fL (80-94); Mean Platelet Vol. 10.2 fl (6.2-12.0); Monocyte# 1.29 X10^3/uL; Monocyte% 9.4 % (0-10); NRBC Flagged by Analyzer 0 % (0-5); Neutrophil # 10.16 X10^3/uL (2.7-7.7); Neutrophil % 73.6 % (47-70); Platelet Count 294 K/mm3 (150-450); RBC Distribution Width SD 54.1 fl (35.1-43.9); White Blood Count 13.8 K/mm3 (4.4-11.0)
[2022-02-12 06:50] LABS: Bedside Glucose 289 mg/dL (74-106)
[2022-02-12 07:04] LABS: BUN 51 mg/dL (7-18); Creatinine, Serum 1.05 mg/dL (0.70-1.30); Glucose 323 mg/dL (74-106)
[2022-02-12 07:05] LABS: Anion Gap 6 (5-15); BUN/Creat Ratio 48.6 RATIO (10-20); Calcium,Total 9.1 mg/dL (8.5-10.1); Chloride 111 mmol/L (98-107); EST Glomerular Filtration Rate 75 mL/min (>60); Est Glom Filt Rate - Afr Amer 91 mL/min (>60); Estimated Creatinine Clearance 83.83 ml/min; Potassium 4.8 mmol/L (3.5-5.1); Sodium Level 139 mmol/L (136-145)
[2022-02-12] MEDS: Ipratropium/Albuterol Sulfate 3 ML AMPUL.NEB INHALATION ×3 (07:19→19:23)
[2022-02-12] MEDS: 0.9% Normal Saline 1,000 ML 75 ML IV ×2 (08:00→23:49)
--- NOTE | 2022-02-12 08:58 | CASEMGMT ---
SW received a note that patient's family that 1. [facility] is first choice and [address] [facility]. ROBBIN faxed referral to [facility] and called Romi regarding referral. Kylah FRANZ
--- NOTE | 2022-02-12 10:14 | CASEMGMT ---
Romi from [facility] said they can accept patient and she will start the pre-cert. will notify patient's family. Plan: [facility] pending insurance approval and patient being medically ready. Kylah FRANZ
--- NOTE | 2022-02-12 10:49 | CASEMGMT ---
SW called patient's son, Jose Alejandro and let him know [facility] can take patient. ROBBIN explained that patient would stay in the hospital until he is ready and insurance approves him. Jose Alejandro said he will notify the rest of the family. Plan: [facility] pending insurance approval. Kylah FRANZ
[2022-02-12 11:30] LABS: Bedside Glucose 266 mg/dL (74-106)
[2022-02-12 12:26] LABS: International Normalized Ratio 1.3; Prothrombin Time (Protime)PT. 15.8 SECONDS (11.7-14.9)
[2022-02-12 12:27] LABS: Partial Thromboplast Time 33.5 Seconds (24.1-36.2)
--- NOTE | 2022-02-12 12:45 | PCM.PN.HOSP ---
Documented by User: Monica Barillas NP, [employer] B[employer] OPERATOR-C 02/12/22 13:09 Subjective Subjective Patient seen and examined. Answering questions more appropriately today however remains drowsy. Difficulty staying awake during exam/orientation questions. Objective Data Objective Data Vital Signs: Vital Signs Temp Pulse Resp BP Pulse Ox 98.4 F 94 20 H 134/71 H 94 02/12/22 11:15 02/12/22 11:15 02/12/22 11:15 02/12/22 11:15 02/12/22 11:15 Oxygen Flow Rate (L/min) 2 Oxygen Delivery Method Room Air Weight: 306 lb 0.026 oz Body Mass Index (BMI) 39.6 Intake & Output: Intake and Output for Last 24 Hours 02/10/22 02/11/22 02/12/22 23:59 23:59 23:59 Intake Total 1140.00 / 1140.00 860 / 860 Balance 1140.00 / 1140.00 860 / 860 Lab / Micro Data Result Diagrams: 02/12/22 06:35 02/12/22 06:35 Labs: Laboratory Results - last 24 hr 02/11/22 04:05: Total Creatine Kinase 89031 H 02/11/22 17:19: POC Glucose 336 H 02/11/22 18:40: ESR 87 H 02/11/22 18:40: C-React Prot Ext Range 172.00 H 02/11/22 18:40: Fibrinogen 815 H 02/11/22 22:47: POC Glucose 325 H 02/12/22 05:12: POC Glucose 289 H 02/12/22 06:35: WBC 13.8 H, RBC 5.80, Hgb 16.6 H, Hct 52.3, MCV 90.2, MCH 28.6, MCHC 31.7 L, RDW Std Deviation 54.1 H, RDW Coeff of Fatuma 17.0 H, Plt Count 294, MPV 10.2, Immature Gran % (Auto) 0.800, Neut % (Auto) 73.6 H, Lymph % (Auto) 14.3 L, [place] % (Auto) 9.4, Eos % (Auto) 0.7, Baso % (Auto) 1.2 H, Absolute Neuts (auto) 10.2 H, Absolute Lymphs (auto) 1.97, Nucleated RBC % 0 02/12/22 06:35: Sodium 139, Potassium 4.8, Chloride 111 H, Carbon Dioxide 22.0, Anion Gap 6, BUN 51 H, Creatinine 1.05, Estim Creat Clear Calc 83.83, Est GFR (MDRD) Af Amer 91, Est GFR (MDRD) Non-Af 75, BUN/Creatinine Ratio 48.6 H, Glucose 323 H, Calcium 9.1 02/12/22 11:18: POC Glucose 266 H 02/12/22 12:05: PT 15.8 H, INR 1.3, APTT 33.5 Micro: Microbiology 02/10/22 11:10 Blood Culture (Wb) - Anticubital Left Blood Culture - Preliminary No growth in 48 hours. 02/10/22 11:10 Blood Culture (Wb) - Arm Left Blood Culture - Preliminary No growth in 48 hours. 02/10/22 11:10 Nasal Secretion SARS-CoV-2 & FLU Antigen (Rapid) - Final Radiography Diagnostic Testing: Radiology Impression Shoulder X-Ray 02/11/22 13:27 IMPRESSION: Markedly limited study by the patient''s body habitus and positioning. No acute displaced fracture or dislocation the right shoulder. A nondisplaced fracture cannot be excluded. 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 Electronically Signed: Darío Negrete MD at 19:25 EDT Reading Location ID and State: [facility] / [place] Tel , Service support , Cervical Spine MRI 02/11/22 16:49 IMPRESSION: Multilevel degenerative changes, as described above. Electronically Signed: Sumeet Asif MD at 20:12 EDT , Physical Exam Const Constitutional Narrative: Drowsy Orientation / Consciousness: oriented to person and oriented to place Exam Limitations: altered mental status Nutritional Appearance: obese HEENT normocephalic Mouth: dry mucous membranes Eyes PERRL, EOMs intact bilaterally and conjunctivae normal Neck no lymphadenopathy Resp clear to auscultation bilaterally Auscultation: diminished lung sounds Cardio regular rate, regular rhythm and no murmurs Peripheral Pulses: pulses 2+ throughout GI normal to inspection, nondistended, normoactive bowel sounds, non-tender and non-distended Extremity normal to inspection Extremity Narrative: s/p Left transmetatarsal amputation Skin Skin Narrative: Right bicep area abrasions. Stage II decubitus coccyx ulceration-stool present during assessment. Left medial plantar diabetic ulceration-granulation tissue present. No evidence of infection. Several right lower extremity venous stasis ulcerations. Neuro CN's II-XII intact bilaterally and deep tendon reflexes 2+ bilaterally Neuro Narrative: RUE weakness. Slurred speech. Psych mental status grossly normal and affect normal Assessment & Plan Assessment/Plan (1) Acute alteration in mental status: PLAN: 1. Acute encephalopathy-CVA ruled out. MRI of brain negative for stroke. CTA of head and neck unremarkable. Echocardiogram with EF 75%, bubble contrast study negative for [id number] interatrial shunt. PT/OT/ST. SOC neurology consulted. Recommended further infectious work-up including cervical spine MRI and lumbar puncture. Right shoulder x-ray without displaced fracture or dislocation. MRI of cervical spine without abscess. ESR, CRP, fibrinogen significantly elevated. LP with lab studies ordered. Case management/social work following for discharge planning. Anticipate SNF placement when medically stable. 2. Metabolic encephalopathy-hold gabapentin, sedating regimen. IV fluids. To undergo LP as noted above. No obvious source of infection. 3. Acute kidney injury with hyperkalemia-likely prerenal. Prior renal function normal, no CKD. Nephrology following. Trend BMP. Renal function returned to normal. 3. Acute traumatic rhabdomyolysis-secondary to being found down for prolonged time. IV fluids. Trend CK. 4. Acute on chronic heart failure with preserved ejection fraction-chest x-ray admission with congestion. IV Lasix x1. Strict I&O. Hold further diuretics. 5. Type 2 diabetes jewjfhir-Ooua-Buvbh with sliding scale insulin. Hemoglobin A1c 5.8%. 6. Chronic wounds, present on admission-follows at wound center. Stage II decubitus coccyx ulceration-stool present during assessment. Left medial plantar diabetic ulceration-granulation tissue present. No evidence of infection. Several right lower extremity venous stasis ulcerations. Wound RN consult. Mepilex to coccyx ulceration. Adaptic and gauze to left foot ulceration. 7. Hypertension-stable, lisinopril on hold. Trend BP. 8. Hyperlipidemia-continue statin. 9. ANT-continue home CPAP regimen. 10. GERD-continue PPI. 11. BPH-on Flomax. 12. Tobacco dependence-encouraged cessation. Nicotine replacement patch if desired. 13. Anxiety/depression-on bupropion, doxepin. DVT prophylaxis-Heparin subcu This patient was seen by NAGA Mercado under the supervision of Dr. Alberto. Time spent examining patient, reviewing data and subsequent management of care: 13 minutes Documented by User: Dr. Roni Alberto, 02/12/22 15:12 Subjective Subjective Still confused but more alert today. Answers no to dysarthria, getting stuck, dropping objects. His history is unreliable and one-point tells me to shut up. Objective Data Lab / Micro Data Result Diagrams: 02/12/22 06:35 02/12/22 06:35 Physical Exam Const alert and no apparent distress Resp normal respiratory effort, no retractions, no use of accessory muscles and clear to auscultation bilaterally GI normal to inspection, nondistended, normoactive bowel sounds, soft to palpation, non-tender and non-distended Extremity normal to inspection Neuro Sensorium / Orientation: awake and alert Assessment & Plan Assessment/Plan (1) Acute alteration in mental status: (2) DEAN (acute kidney injury): (3) Rhabdomyolysis: QUALIFIERS: Rhabdomyolysis type: non-traumatic Qualified Code(s): M62.82 - Rhabdomyolysis PLAN: Patient seen and examined independently. Data and vitals reviewed. I agree with the above note by the nurse practitioner. 1. Acute encephalopathy most likely due to stroke/complicated with metabolic encephalopathy MRI brain showed chronic involutional changes. ?Hummingbird sign/Ayo Mouse sign? Concern for underlying neurdegenerative d/o (e.g., PSP, v other) Even though neurodegenerative process may be the likely etiology compounded by patient's metabolic derangements, LP performed to rule out any other infectious etiology. SOC consult performed and recommended MRI of the cervical spine. MRI of the cervical spine showed chronic degenerative changes. TSH WNL. 2. Acute on chronic HFpEF: Patient had last echo in 05/11/2019 reported EF 55% stage I diastolic dysfunction hypokinetic basal wall. Structurally normal valves. Chest x-ray image reviewed shows poor inspiratory effort and therefore cannot rule out pulmonary edema. Lasix 40 mg IV given. 3. Acute kidney injury with CKD stage II, diabetic nephropathy: resolved Patient baseline creatinine clearance about 75 mill per hour. Admitted with BUN/creatinine 35/1.52. Nephrology following, DEAN felt to be prerenal 4. Rhabdomyolysis Ongoing 2/2 prolonged laying on the chair. on IVF recheck CPK 5. Diabetes mellitus type 2 with hypoglycemia with history of long-term complication: Patient has diabetic nephropathy, neuropathy multiple feet wound and amputation in the past. Accu-Cheks every 6 hourly. Glucose in BMP is 146. Patient follows wound clinic. Wound nurse consulted. 6. Chronic conditions: Hypertension: BP was elevated 155/73. Most recently normal. EKG sinus tachycardia. Dyslipidemia: Hold statin as patient having rhabdomyolysis. Class III obesity with BMI of 39.6 kg/m?. Weight loss advised Obstructive sleep apnea: CPAP at bedtime GERD with last admission for Kalie-Acevedo tear and gastritis: Patient had EGD at that time. Continue PPI BPH ?Patient is on tamsulosin Chronic cigarette smoking/Tobacco dependence: Nicotine patch when patient is more awake. Anxiety and depression: Hold antidepressant medication as patient is lethargy. 7. DVT prophylaxis: Heparin 5000 subcutaneous every 8 hourly as patient is high risk for thromboembolism but is also high risk of bleeding. Discontinue if platelet count drops less than 50,000 or hemoglobin less than 8 g% Greater than 30 minutes reviewing data, vitals, previous documentation. Charges/Coding Visit Charges Inpatient E&M: 71454 [facility] L3
--- NOTE | 2022-02-12 13:12 | PN.RENAL_ITS ---
Subjective Subjective no new events Objective Data Objective Data Vital Signs: Vital Signs Temp Pulse Resp BP Pulse Ox 98.4 F 94 20 H 134/71 H 94 02/12/22 11:15 02/12/22 11:15 02/12/22 11:15 02/12/22 11:15 02/12/22 11:15 Oxygen Flow Rate (L/min) 2 Oxygen Delivery Method Room Air Weight: 138.8 kg Body Mass Index (BMI) 39.6 Intake & Output: Intake and Output for Last 24 Hours 02/10/22 02/11/22 02/12/22 23:59 23:59 23:59 Intake Total 1140.00 / 1140.00 860 / 860 Balance 1140.00 / 1140.00 860 / 860 Lab / Micro Data Result Diagrams: 02/12/22 06:35 02/12/22 06:35 Labs: Laboratory Results - last 24 hr 02/11/22 04:05: Total Creatine Kinase 35639 H 02/11/22 17:19: POC Glucose 336 H 02/11/22 18:40: ESR 87 H 02/11/22 18:40: C-React Prot Ext Range 172.00 H 02/11/22 18:40: Fibrinogen 815 H 02/11/22 22:47: POC Glucose 325 H 02/12/22 05:12: POC Glucose 289 H 02/12/22 06:35: WBC 13.8 H, RBC 5.80, Hgb 16.6 H, Hct 52.3, MCV 90.2, MCH 28.6, MCHC 31.7 L, RDW Std Deviation 54.1 H, RDW Coeff of Fatuma 17.0 H, Plt Count 294, MPV 10.2, Immature Gran % (Auto) 0.800, Neut % (Auto) 73.6 H, Lymph % (Auto) 14.3 L, [place] % (Auto) 9.4, Eos % (Auto) 0.7, Baso % (Auto) 1.2 H, Absolute Neuts (auto) 10.2 H, Absolute Lymphs (auto) 1.97, Nucleated RBC % 0 02/12/22 06:35: Sodium 139, Potassium 4.8, Chloride 111 H, Carbon Dioxide 22.0, Anion Gap 6, BUN 51 H, Creatinine 1.05, Estim Creat Clear Calc 83.83, Est GFR (MDRD) Af Amer 91, Est GFR (MDRD) Non-Af 75, BUN/Creatinine Ratio 48.6 H, Glucose 323 H, Calcium 9.1 02/12/22 11:18: POC Glucose 266 H 02/12/22 12:05: PT 15.8 H, INR 1.3, APTT 33.5 Micro: Microbiology 02/10/22 11:10 Blood Culture (Wb) - Anticubital Left Blood Culture - Preliminary No growth in 48 hours. 02/10/22 11:10 Blood Culture (Wb) - Arm Left Blood Culture - Preliminary No growth in 48 hours. 02/10/22 11:10 Nasal Secretion SARS-CoV-2 & FLU Antigen (Rapid) - Final Radiography Diagnostic Testing: Radiology Impression Shoulder X-Ray 02/11/22 13:27 IMPRESSION: Markedly limited study by the patient''s body habitus and positioning. No acute displaced fracture or dislocation the right shoulder. A nondisplaced fracture cannot be excluded. 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 Electronically Signed: Darío Negrete MD at 19:25 EDT , Cervical Spine MRI 02/11/22 16:49 IMPRESSION: Multilevel degenerative changes, as described above. Electronically Signed: Sumeet Asif MD at 20:12 EDT , Physical Exam Narrative General: Lethargic but arousable with voice HEENT: Normocephalic atraumatic mucous membrane dry. Neck: Supple no visible JVD. Heart: Tachycardic S1, S2. No rubs or murmurs. Lungs: Decreased breath sound at bases with expiratory wheezing. Abdomen: Normal bowel sound, soft, nontender, no guarding or rebound. Extremities: No clubbing, cyanosis or edema. Musculoskeletal: Full passive range of motion, no joint swelling. Psychiatric: Flat affect. Skin: Warm and dry. No visible rashes. Assessment & Plan Assessment/Plan (1) DEAN (acute kidney injury): PLAN: - The patient has normal baseline renal function with serum creatinine of 0.8 to 0.9 mg/dL at baseline. -Suspect DEAN is due to prerenal azotemia. I suspect this is more from true volume depletion versus cardiorenal DEAN. -Echocardiogram done in October 2021 showed normal EF at 60%. (2) Rhabdomyolysis: QUALIFIERS: Rhabdomyolysis type: non-traumatic Qualified Code(s): M62.82 - Rhabdomyolysis PLAN: -CPK is 9774. fluids as tolerated (3) Dyspnea: PLAN: - stable (4) Weakness: PLAN: - The patient does present with facial drooping and right-sided weakness. However, CT head did not show acute pathology. -mental status is better (5) Hypoglycemia: PLAN: - The patient presented with hypoglycemia which has been corrected.
[2022-02-12] MEDS: Ketorolac 15 MG/ML Vial IV (13:38)
[2022-02-12] MEDS: Lidocaine 2% (5ml sdv) 5 ML VIAL.MPF INFILT (14:35)
--- NOTE | 2022-02-12 14:35 | RAD_ITS ---
PROCEDURE: Fluoroscopic guided Lumbar Puncture. INDICATION: Male, 66 years old. Encephalopathy PHYSICIAN: Brandon Mota DO MEDICATIONS: 1% lidocaine administered subcutaneously for local anesthesia. ACCESS SITE: Lower posterior back. NEEDLE: 22-gauge spinal needle. SPECIMEN: None. FLUOROSCOPY TIME (if supplied): (0:18) minutes/seconds COMPLICATIONS: None immediate. TECHNIQUE: The patient is unable to provide consent due to altered mental status. The risks, benefits, and alternatives to the procedure were explained to the patient''s son. The specific risks of bleeding, infection, and neurovascular injury were detailed and accepted. Witnessed informed consent was obtained. The patient was placed on the fluoroscopic table in the prone position. The patient had difficulty remaining still throughout the course the procedure due to altered mental status. In addition, patient''s body habitus also somewhat limited the ability to perform the procedure. The level for needle entry was determined and marked. The overlying skin was cleaned and prepped in the usual sterile fashion. 2% lidocaine was administered subcutaneously for local anesthesia. Under fluoroscopic guidance a 22-gauge spinal needle was advanced. Multiple unsuccessful attempts were made to access the thecal sac at the L3-L4 vertebral level. Then, multiple unsuccessful attempts were made to access the thecal sac at the L4-L5 vertebral level. Given multiple attempts, the patient''s inability to remain still, decision was made to end the procedure. RAD/Dx Lumbar Puncture w/IMG Guide IMPRESSION: Unsuccessful fluoroscopic guided lumbar puncture with attempts made at the L3-L4 and L4-L5 vertebral level. Assessment limited by patient''s inability to remain still and patient''s body habitus. Further attempts could potentially be made with a C-arm radiograph with lateral views for needle guidance and sedation for the patient. Electronically Signed: Brandon Mota, at 17:47 EDT ,
[2022-02-12 16:41] LABS: Bedside Glucose 285 mg/dL (74-106)
[2022-02-13] VITALS (16 sets, daily range): BP systolic 127–157; BP diastolic 58–80; PULSE 84–99; RESP 12–24; TEMP 36.3–37.1; O2SAT 93–96
[2022-02-13] MEDS: Insulin Lispro 100 UNIT/ML INSULN.PEN SC ×5 (00:22→23:34)
[2022-02-13 00:46] LABS: Bedside Glucose 255 mg/dL (74-106)
[2022-02-13 06:10] LABS: Absolute Lymphocyte Count 1.57 X10^3/uL (0.83-4.51); Absolute Neutrophil Count 8.4 X10^3/uL (2.0-7.7); Basophil# 0.15 X10^3/uL; Basophil% 1.3 % (0-1); Eosinophil# 0.11 X10^3/uL; Hematocrit 52.6 % (40-54); Hemoglobin 16.3 g/dL (13.0-16.5); Lymphocyte # 1.57 X10^3/ul (0.83-4.51); Lymphocyte % 13.9 % (19-41); Mean Corpuscular Hgb 28.2 pg (27.0-32.0); Mean Platelet Vol. 10.9 fl (6.2-12.0); Monocyte# 0.97 X10^3/uL; Monocyte% 8.6 % (0-10); NRBC Flagged by Analyzer 0 % (0-5); Neutrophil # 8.43 X10^3/uL (2.7-7.7); Neutrophil % 74.3 % (47-70); Platelet Count 281 K/mm3 (150-450); RBC Distribution Width CV 16.9 % (11.6-14.6); RBC Distribution Width SD 54.9 fl (35.1-43.9); Red Blood Count 5.78 M/mm3 (4.6-6.2); White Blood Count 11.3 K/mm3 (4.4-11.0)
[2022-02-13] MEDS: Heparin Injection (Vial) 5,000 UNIT/ML VIAL 5000 UNIT SC ×3 (06:15→21:21)
[2022-02-13 06:38] LABS: Anion Gap 6 (5-15); BUN 40 mg/dL (7-18); BUN/Creat Ratio 54.6 RATIO (10-20); Calcium,Total 8.9 mg/dL (8.5-10.1); Chloride 117 mmol/L (98-107); Creatinine, Serum 0.73 mg/dL (0.70-1.30); EST Glomerular Filtration Rate 114 mL/min (>60); Est Glom Filt Rate - Afr Amer 138 mL/min (>60); Estimated Creatinine Clearance 120.58 ml/min; Glucose 283 mg/dL (74-106); Potassium 4.5 mmol/L (3.5-5.1); Sodium Level 144 mmol/L (136-145)
[2022-02-13 06:46] LABS: Bedside Glucose 254 mg/dL (74-106)
[2022-02-13] MEDS: Ipratropium/Albuterol Sulfate 3 ML AMPUL.NEB INHALATION ×5 (07:43→22:43)
[2022-02-13] MEDS: Insulin Glargine-YFGN 100 UNIT/ML Pen SC (09:49)
--- NOTE | 2022-02-13 10:13 | PCM.PN.REN ---
Subjective Subjective Following for DEAN. No overnight events. Resting quietly in bed. Watching tv. Denies any complaints. Objective Data Objective Data Vital Signs: Vital Signs Temp Pulse Resp BP Pulse Ox 97.4 F L 93 18 145/58 H 94 02/13/22 09:45 02/13/22 09:45 02/13/22 09:45 02/13/22 09:45 02/13/22 09:45 Oxygen Flow Rate (L/min) 2 Oxygen Delivery Method Room Air Weight: 138.8 kg Body Mass Index (BMI) 39.6 Intake & Output: Intake and Output for Last 24 Hours 02/11/22 02/12/22 02/13/22 23:59 23:59 23:59 Intake Total 1140.00 / 1140.00 1860.00 / 1860.00 Balance 1140.00 / 1140.00 1860.00 / 1860.00 Lab / Micro Data Result Diagrams: 02/13/22 05:20 02/13/22 05:20 Labs: Laboratory Results - last 24 hr 02/12/22 11:18: POC Glucose 266 H 02/12/22 12:05: PT 15.8 H, INR 1.3, APTT 33.5 02/12/22 16:35: POC Glucose 285 H 02/13/22 00:19: POC Glucose 255 H 02/13/22 05:20: WBC 11.3 H, RBC 5.78, Hgb 16.3, Hct 52.6, MCV 91.0, MCH 28.2, MCHC 31.0 L, RDW Std Deviation 54.9 H, RDW Coeff of Fatuma 16.9 H, Plt Count 281, MPV 10.9, Immature Gran % (Auto) 0.900, Neut % (Auto) 74.3 H, Lymph % (Auto) 13.9 L, [place] % (Auto) 8.6, Eos % (Auto) 1.0, Baso % (Auto) 1.3 H, Absolute Neuts (auto) 8.4 H, Absolute Lymphs (auto) 1.57, Nucleated RBC % 0 02/13/22 05:20: Sodium 144, Potassium 4.5, Chloride 117 H, Carbon Dioxide 21.0, Anion Gap 6, BUN 40 H, Creatinine 0.73, Estim Creat Clear Calc 120.58, Est GFR (MDRD) Af Amer 138, Est GFR (MDRD) Non-Af 114, BUN/Creatinine Ratio 54.6 H, Glucose 283 H, Calcium 8.9 02/13/22 06:21: POC Glucose 254 H Micro: Microbiology 02/10/22 11:10 Blood Culture (Wb) - Anticubital Left Blood Culture - Preliminary No growth in 48 hours. 02/10/22 11:10 Blood Culture (Wb) - Arm Left Blood Culture - Preliminary No growth in 48 hours. 02/10/22 11:10 Nasal Secretion SARS-CoV-2 & FLU Antigen (Rapid) - Final Radiography Diagnostic Testing: Radiology Impression Lumbar Puncture Fluoroscopy 02/12/22 14:35 IMPRESSION: Unsuccessful fluoroscopic guided lumbar puncture with attempts made at the L3-L4 and L4-L5 vertebral level. Assessment limited by patient''s inability to remain still and patient''s body habitus. Further attempts could potentially be made with a C-arm radiograph with lateral views for needle guidance and sedation for the patient. Electronically Signed: Brandonclare Mirelesel, at 17:47 EDT , Physical Exam Narrative General: Lethargic but arousable with voice HEENT: Normocephalic atraumatic, mucous membranes dry. Heart: S1, S2, RRR. No rubs or murmurs. Lungs: Decreased breath sound at bases, no wheezing, rhonchi, rales noted Abdomen: Normal bowel sounds, soft, nontender Extremities: No pitting edema. Psychiatric: Flat affect. Skin: Warm and dry. Assessment & Plan Assessment/Plan (1) DEAN (acute kidney injury): PLAN: - The patient has normal baseline renal function with serum creatinine of 0.8 to 0.9 mg/dL at baseline. Creatinine peaked 1.52mg/dL 02/10/2022. Today SCr 0.73mg/dL. -Suspect Nonoliguric DEAN is due to prerenal azotemia. I suspect this is more from true volume depletion versus cardiorenal DEAN. -Echocardiogram done in October 2021 showed normal EF at 60%. (2) Rhabdomyolysis: QUALIFIERS: Rhabdomyolysis type: non-traumatic Qualified Code(s): M62.82 - Rhabdomyolysis PLAN: -CPK peaked 10,693 on 02/11. Currently on IVF at 75ml/hr. Waiting for speech therapy eval and if started on diet then IVF will be stopped. (3) Dyspnea: PLAN: - stable (4) Weakness: PLAN: - The patient presented with facial drooping and right-sided weakness. CT head did not show acute pathology. MRI brain negative for Stroke - mental status is better - PT/OT - currently NPO, speech therapy consulted. (5) Hypoglycemia: PLAN: - The patient presented with hypoglycemia which has been corrected. - discharge plans in progress, at time of discharge to go to [facility] for rehab.
[2022-02-13 11:46] LABS: Bedside Glucose 257 mg/dL (74-106)
--- NOTE | 2022-02-13 12:19 | CASEMGMT ---
ROBBIN received a voice mail from Romi at [facility] and patient has been approved. ROBBIN notified Nurse Practitioner. Kylah FRANZ
--- NOTE | 2022-02-13 12:21 | PN.HOSP_ITS ---
Documented by User: Monica Barillas NP, [employer]ING MACHINE HELPER-C 02/13/22 12:35 Subjective Subjective Patient seen and examined. Remains confused however more alert. Intermittent restless, pulling at automobile appraiser and medical equipment. Intermittently yelling out. Objective Data Objective Data Vital Signs: Vital Signs Temp Pulse Resp BP Pulse Ox 97.4 F L 93 18 145/58 H 94 02/13/22 09:45 02/13/22 09:45 02/13/22 09:45 02/13/22 09:45 02/13/22 09:45 Oxygen Flow Rate (L/min) 2 Oxygen Delivery Method Room Air Weight: 306 lb 0.026 oz Body Mass Index (BMI) 39.6 Intake & Output: Intake and Output for Last 24 Hours 02/11/22 02/12/22 02/13/22 23:59 23:59 23:59 Intake Total 1140.00 / 1140.00 1860.00 / 1860.00 60 / 60 Balance 1140.00 / 1140.00 1860.00 / 1860.00 60 / 60 Lab / Micro Data Result Diagrams: 02/13/22 05:20 02/13/22 05:20 Labs: Laboratory Results - last 24 hr 02/12/22 12:05: PT 15.8 H, INR 1.3, APTT 33.5 02/12/22 16:35: POC Glucose 285 H 02/13/22 00:19: POC Glucose 255 H 02/13/22 05:20: WBC 11.3 H, RBC 5.78, Hgb 16.3, Hct 52.6, MCV 91.0, MCH 28.2, MCHC 31.0 L, RDW Std Deviation 54.9 H, RDW Coeff of Fatuma 16.9 H, Plt Count 281, MPV 10.9, Immature Gran % (Auto) 0.900, Neut % (Auto) 74.3 H, Lymph % (Auto) 13.9 L, [facility] % (Auto) 8.6, Eos % (Auto) 1.0, Baso % (Auto) 1.3 H, Absolute Neuts (auto) 8.4 H, Absolute Lymphs (auto) 1.57, Nucleated RBC % 0 02/13/22 05:20: Sodium 144, Potassium 4.5, Chloride 117 H, Carbon Dioxide 21.0, Anion Gap 6, BUN 40 H, Creatinine 0.73, Estim Creat Clear Calc 120.58, Est GFR (MDRD) Af Amer 138, Est GFR (MDRD) Non-Af 114, BUN/Creatinine Ratio 54.6 H, Glucose 283 H, Calcium 8.9 02/13/22 06:21: POC Glucose 254 H 02/13/22 11:35: POC Glucose 257 H Micro: Microbiology 02/10/22 11:10 Blood Culture (Wb) - Anticubital Left Blood Culture - Preliminary No growth in 48 hours. 02/10/22 11:10 Blood Culture (Wb) - Arm Left Blood Culture - Preliminary No growth in 48 hours. 02/10/22 11:10 Nasal Secretion SARS-CoV-2 & FLU Antigen (Rapid) - Final Radiography Diagnostic Testing: Radiology Impression Lumbar Puncture Fluoroscopy 02/12/22 14:35 IMPRESSION: Unsuccessful fluoroscopic guided lumbar puncture with attempts made at the L3-L4 and L4-L5 vertebral level. Assessment limited by patient''s inability to remain still and patient''s body habitus. Further attempts could potentially be made with a C-arm radiograph with lateral views for needle guidance and sedation for the patient. Electronically Signed: Brandon Mota, at 17:47 EDT , Physical Exam Const alert Constitutional Narrative: confused, yelling out HEENT normocephalic Mouth: dry mucous membranes Eyes PERRL, EOMs intact bilaterally and conjunctivae normal Neck no lymphadenopathy Resp clear to auscultation bilaterally Auscultation: diminished lung sounds Cardio regular rate, regular rhythm and no murmurs Peripheral Pulses: pulses 2+ throughout GI normal to inspection, nondistended, normoactive bowel sounds, non-tender and non-distended Extremity normal to inspection Extremity Narrative: s/p Left transmetatarsal amputation Skin Skin Narrative: Right bicep area abrasions. Stage II decubitus coccyx ulceration-stool present during assessment. Left medial plantar diabetic ulceration-granulation tissue present. No evidence of infection. Several right lower extremity venous stasis ulcerations. Neuro CN's II-XII intact bilaterally, no focal motor deficits, no sensory deficits noted and deep tendon reflexes 2+ bilaterally Neuro Narrative: Slurred speech. Psych Activity / Motor Behavior: restless Assessment & Plan Assessment/Plan (1) Acute alteration in mental status: PLAN: 1. Acute encephalopathy-CVA ruled out. MRI of brain negative for stroke. CTA of head and neck unremarkable. Echocardiogram with EF 75%, bubble contrast study negative for [id number] interatrial shunt. PT/OT/ST. SOC neurology consulted. Recommended further infectious work-up including cervical spine MRI and lumbar puncture. Right shoulder x-ray without displaced fracture or dislocation. MRI of cervical spine without abscess. ESR, CRP, fibrinogen significantly elevated. LP attempted however unable to be completed due to patient's habitus. Approved for SNF. Patient NPO due to mental status/unable to follow commands. Plan for SNF pending ST clearance for oral intake. MRI showed evidence of chronic involutional changes. Patient will need outpatient referral for neurodegenerative work-up. 2. Metabolic encephalopathy-hold gabapentin, sedating regimen. LP attempted as noted above however not successful. No obvious source of infection. 3. Acute kidney injury with hyperkalemia-likely prerenal. Prior renal function normal, no CKD. Renal function returned to normal. 3. Acute traumatic rhabdomyolysis-secondary to being found down for prolonged time. IV fluids. 4. Acute on chronic heart failure with preserved ejection fraction-chest x-ray admission with congestion. IV Lasix x1. Strict I&O. Hold further diuretics. 5. Type 2 diabetes wwygpzhy-Sijh-Mgodq with sliding scale insulin. Hemoglobin A1c 5.8%. 6. Chronic wounds, present on admission-follows at wound center. Stage II decubitus coccyx ulceration-stool present during assessment. Left medial plantar diabetic ulceration-granulation tissue present. No evidence of infection. Several right lower extremity venous stasis ulcerations. Wound RN consult. Mepilex to coccyx ulceration. Adaptic and gauze to left foot ulceration. 7. Hypertension-stable, lisinopril on hold. Trend BP. 8. Hyperlipidemia-continue statin. 9. ANT-continue home CPAP regimen. 10. GERD-continue PPI. 11. BPH-on Flomax. 12. Tobacco dependence-encouraged cessation. Nicotine replacement patch if desired. 13. Anxiety/depression-on bupropion, doxepin. DVT prophylaxis-Heparin subcu This patient was seen by Monica Barillas NP-C under the supervision of Dr. Alberto. Discharge planning: approved for SNF. DC to snf pending cleared for diet by ST and improved mental status. Time spent examining patient, reviewing data and subsequent management of care: 12 minutes Documented by User: Dr. Roni Alberto, DO 02/13/22 12:50 Objective Data Lab / Micro Data Result Diagrams: 02/13/22 05:20 02/13/22 05:20 Physical Exam Const alert Constitutional Narrative: more alert. speech better, but still difficult to understand. Resp normal respiratory effort, no retractions, no use of accessory muscles and clear to auscultation bilaterally Cardio regular rate, regular rhythm, S1 normal heart sound and S2 normal heart sound GI normal to inspection, nondistended, normoactive bowel sounds, soft to palpation, non-tender and non-distended Extremity normal to inspection and full ROM Assessment & Plan Assessment/Plan (1) Acute alteration in mental status: (2) Rhabdomyolysis: QUALIFIERS: Rhabdomyolysis type: non-traumatic Qualified Code(s): M62.82 - Rhabdomyolysis PLAN: Patient seen and examined independently. Data and vitals reviewed. I agree with the above note by the nurse practitioner. 1. Acute encephalopathy most likely due to stroke/complicated with metabolic encephalopathy MRI brain showed chronic involutional changes. ?Hummingbird sign/Ayo Mouse sign? Concern for underlying neurdegenerative d/o (e.g., PSP, v other) Even though neurodegenerative process may be the likely etiology compounded by patient's metabolic derangements, LP performed to rule out any other infectious etiology. SOC consult performed and recommended MRI of the cervical spine. MRI of the cervical spine showed chronic degenerative changes. TSH WNL. LP unable to be performed given his body habitus as well as writhing around. Given the clinical suspicion for meningitis or encephalitis is low I feel the risks of reattempting this outweigh the benefits. Previously my encounters in this institution has been that we are unable to do conscious sedation for MRIs. And I do not feel that transfer to a tertiary facility is necessary for conscious sedation given the clinical suspicion for encephalitis and meningitis is low. 2. Acute on chronic HFpEF: Patient had last echo in 05/11/2019 reported EF 55% stage I diastolic dysfunction hypokinetic basal wall. Structurally normal valves. Chest x-ray image reviewed shows poor inspiratory effort and therefore cannot rule out pulmonary edema. Lasix 40 mg IV given. 3. Acute kidney injury with CKD stage II, diabetic nephropathy: resolved Patient baseline creatinine clearance about 75 mill per hour. Admitted with BUN/creatinine 35/1.52. Nephrology following, DEAN felt to be prerenal 4. Rhabdomyolysis Ongoing 2/2 prolonged laying on the chair. on IVF 5. Diabetes mellitus type 2 with hypoglycemia with history of long-term complication: Patient has diabetic nephropathy, neuropathy multiple feet wound and amputation in the past. Accu-Cheks every 6 hourly. Glucose in BMP is 146. Patient follows wound clinic. Wound nurse consulted. 6. Chronic conditions: Hypertension: BP was elevated 155/73. Most recently normal. EKG sinus tachycardia. Dyslipidemia: Hold statin as patient having rhabdomyolysis. Class III obesity with BMI of 39.6 kg/m?. Weight loss advised Obstructive sleep apnea: CPAP at bedtime GERD with last admission for Kalie-Acevedo tear and gastritis: Patient had EGD at that time. Continue PPI BPH ?Patient is on tamsulosin Chronic cigarette smoking/Tobacco dependence: Nicotine patch when patient is more awake. Anxiety and depression: Hold antidepressant medication as patient is lethargy. 7. DVT prophylaxis: Heparin 5000 subcutaneous every 8 hourly as patient is high risk for thromboembolism but is also high risk of bleeding. Discontinue if platelet count drops less than 50,000 or hemoglobin less than 8 g% 8. Dysphagia Speech therapy following recommend n.p.o. at present. Limited by MS greater than 20 minutes reviewing data, vitals, previous documentation. Charges/Coding Visit Charges Inpatient E&M: 37753 Subs Hosp L2
[2022-02-13] MEDS: Menthol/Lanolin/Calamine/Znox 113 GM Tube 1 APPLIC TOPICAL ×2 (13:12→21:19)
[2022-02-13] MEDS: 0.9% Normal Saline 1,000 ML 75 ML IV (13:12)
--- NOTE | 2022-02-13 13:34 | CASEMGMT ---
Patient is not ready for discharge today. ROBBIN called Romi at [facility] and notified her patient is not ready today. Kylah FRANZ
--- NOTE | 2022-02-13 14:30 | CASEMGMT ---
Per nursing, pt is more alert at this time and speech was notified to possibly re-eval pt. SStandrae RN CM
--- NOTE | 2022-02-13 14:42 | CASEMGMT ---
[facility] requesting [facility] and was provideded update/dispo plan, voices understanding. Neftali RN CM
[2022-02-13 17:45] LABS: Bedside Glucose 245 mg/dL (74-106)
[2022-02-13] MEDS: Senna/Docusate Sodium 1 Tablet 2 TABLET PO (21:20)
[2022-02-13] MEDS: Atorvastatin Calcium 80 MG Tablet PO (21:20)
--- NOTE | 2022-02-13 23:27 | CPS ---
Attempted to put patient on bipap for the night, patient took mask off after only wearing for 5 minutes. Is unable to tolerate it, RN aware. Will keep on a continuous pulse ox monitor for the night.
[2022-02-13 23:41] LABS: Bedside Glucose 303 mg/dL (74-106)
[2022-02-14] MEDS: 0.9% Normal Saline 1,000 ML 75 ML IV (02:52)
[2022-02-14 03:29] VITALS: BP 159/84; PULSE 84; RESP 18; TEMP 36.6; O2SAT 98
[2022-02-14] MEDS: Heparin Injection (Vial) 5,000 UNIT/ML VIAL 5000 UNIT SC ×2 (05:23→13:48)
[2022-02-14] MEDS: Menthol/Lanolin/Calamine/Znox 113 GM Tube 1 APPLIC TOPICAL ×2 (05:23→13:48)
[2022-02-14] MEDS: Insulin Lispro 100 UNIT/ML INSULN.PEN SC ×2 (05:24→11:26)
[2022-02-14 05:41] LABS: Bedside Glucose 253 mg/dL (74-106)
[2022-02-14 06:47] VITALS: PULSE 88; RESP 20; O2SAT 93
[2022-02-14] MEDS: Ipratropium/Albuterol Sulfate 3 ML AMPUL.NEB INHALATION ×3 (06:47→14:46)
[2022-02-14] MEDS: Aspirin E.C. 81 MG Tablet PO (08:42)
[2022-02-14] MEDS: Insulin Glargine-YFGN 100 UNIT/ML Pen SC (08:42)
[2022-02-14] MEDS: Senna/Docusate Sodium 1 Tablet 2 TABLET PO (08:42)
[2022-02-14 08:50] VITALS: BP 148/72; PULSE 91; RESP 18; TEMP 36.4; O2SAT 94
--- NOTE | 2022-02-14 09:17 | PN.HOSP_ITS ---
Documented by User: NAGA Lechuga 02/14/22 09:50 Subjective Subjective Seen and examined. Patient lying in bed no distress noted. Patient just completed breakfast. Patient denies any complaints at this time. Objective Data Objective Data Vital Signs: Vital Signs Temp Pulse Resp BP Pulse Ox 97.6 F L 91 18 148/72 H 94 02/14/22 08:50 02/14/22 08:50 02/14/22 08:50 02/14/22 08:50 02/14/22 08:50 Oxygen Flow Rate (L/min) 2 Oxygen Delivery Method Room Air Weight: 310 lb 6.574 oz Body Mass Index (BMI) 39.6 Intake & Output: Intake and Output for Last 24 Hours 02/12/22 02/13/22 02/14/22 23:59 23:59 23:59 Intake Total 1860.00 / 1860.00 1060 / 1060 1000 / 1000 Balance 1860.00 / 1860.00 1060 / 1060 1000 / 1000 Lab / Micro Data Result Diagrams: 02/13/22 05:20 02/13/22 05:20 Labs: Laboratory Results - last 24 hr 02/13/22 11:35: POC Glucose 257 H 02/13/22 17:23: POC Glucose 245 H 02/13/22 23:33: POC Glucose 303 H 02/14/22 05:21: POC Glucose 253 H Micro: Microbiology 02/10/22 11:10 Blood Culture (Wb) - Anticubital Left Blood Culture - Preliminary No growth in 48 hours. 02/10/22 11:10 Blood Culture (Wb) - Arm Left Blood Culture - Preliminary No growth in 48 hours. 02/10/22 11:10 Nasal Secretion SARS-CoV-2 & FLU Antigen (Rapid) - Final Physical Exam Const alert and no apparent distress Orientation / Consciousness: confused HEENT head/scalp atraumatic and moist oral mucous membranes Head and Scalp: normocephalic Eyes conjunctivae normal and no scleral icterus Neck supple General: trachea midline Resp normal respiratory effort and clear to auscultation bilaterally Effort and Inspection: able to speak in complete sentences and symmetric chest movement Cardio regular rate, regular rhythm, S1 normal heart sound, S2 normal heart sound and peripheral pulses 2+ throughout GI normal to inspection, nondistended, normoactive bowel sounds, soft to palpation and non-tender Extremity normal to inspection Extremity Narrative: staus post left transmetatarsal amputation Peripheral Pulses: Yes pulses 2+ throughout Skin no rashes or lesions noted Skin Narrative: Stage II decubitus coccyx ulceration. Left medial plantar diabetic ulceration, no s/sx of infection. Several right lower extremity venous stasis ulcers noted. Neuro no focal motor deficits and no sensory deficits noted Sensorium / Orientation: awake and alert Psych cooperative Assessment & Plan Assessment/Plan (1) DEAN (acute kidney injury): (2) Rhabdomyolysis: QUALIFIERS: Rhabdomyolysis type: non-traumatic Qualified Code(s): M62.82 - Rhabdomyolysis (3) Acute alteration in mental status: PLAN: 1. Acute alteration in mental status -CVA ruled out -Echocardiogram demonstrates EF 75% with negative bubble study -PT OT and ST following -Patient unable to undergo LP due to habitus. -Patient approved for care home facility pending ST, patient cleared for pur?e textures and thin liquids by teaspoon only per speech and patient only to be fed when fully alert due to impulsivity. -Patient will likely need outpatient referral for neurodegenerative work-up 2. Metabolic encephalopathy -Continue to hold gabapentin, sedating regimen -No obvious source of infection, LP unable to be completed 3. Acute kidney injury with hyperkalemia -Resolved, patient back to baseline kidney function 4. Acute traumatic rhabdomyolysis -Continue IV fluids 5. Acute on chronic heart failure with preserved EF -Strict intake and output with daily weights -Patient receives IV Lasix x1 on admission however this was not continued due to DEAN 6. Diabetes mellitus type 2 -ACH S blood sugars with sliding scale insulin ordered 7. Chronic wounds, present on admission -Patient follows at wound center -Wound RN consult -Mepilex in place to coccyx ulceration -Adaptic and gauze to left foot ulceration 8. Hypertension -Vital signs currently stable -Lisinopril on hold 9. Hyperlipidemia -Continue statin 10. Obstructive sleep apnea -Continue home CPAP regimen 11. BPH -Continue Flomax 12. Anxiety and depression -Continue bupropion and doxepin 13. Tobacco dependence -Encourage cessation Discharge planning-approved for SNF. DC to SNF pending cleared for diet by ST and improve mental status. DVT prophylaxis-subcu heparin This patient was seen by Randee Man NP-C under the supervision of Dr. Alberto. 13 minutes spent in clinical coordination of patient's plan of care. Documented by User: Dr. Roni Alberto DO 02/14/22 12:02 Subjective Subjective More alert today. Denies any complaints. Objective Data Lab / Micro Data Result Diagrams: 02/13/22 05:20 02/13/22 05:20 Physical Exam Const alert and no apparent distress Constitutional Narrative: more alert. speach more coherent. Resp normal respiratory effort, no retractions, no use of accessory muscles and clear to auscultation bilaterally Cardio regular rate, regular rhythm, S1 normal heart sound and S2 normal heart sound GI normal to inspection, nondistended, normoactive bowel sounds, soft to palpation, non-tender and non-distended Extremity normal to inspection Neuro Sensorium / Orientation: awake and alert Assessment & Plan Assessment/Plan (1) DEAN (acute kidney injury): (2) Rhabdomyolysis: QUALIFIERS: Rhabdomyolysis type: non-traumatic Qualified Code(s): M62.82 - Rhabdomyolysis (3) Acute alteration in mental status: PLAN: Patient seen and examined independently. Data and vitals reviewed. I agree with the above note by the nurse practitioner. 1. Acute encephalopathy most likely due to stroke/complicated with metabolic encephalopathy MRI brain showed chronic involutional changes. ?Hummingbird sign/Ayo Mouse sign? Concern for underlying neurdegenerative d/o (e.g., PSP, v other) Even though neurodegenerative process may be the likely etiology compounded by patient's metabolic derangements, LP performed to rule out any other infectious etiology. SOC consult performed and recommended MRI of the cervical spine. MRI of the cervical spine showed chronic degenerative changes. TSH WNL. LP unable to be performed given his body habitus as well as writhing around. Given the clinical suspicion for meningitis or encephalitis is low I feel the r isks of reattempting this outweigh the benefits. Previously my encounters in this institution has been that we are unable to do conscious sedation for MRIs. And I do not feel that transfer to a tertiary facility is necessary for conscious sedation given the clinical suspicion for encephalitis and meningitis is low. 2. Acute on chronic HFpEF: Patient had last echo in 05/11/2019 reported EF 55% stage I diastolic dysfunction hypokinetic basal wall. Structurally normal valves. Chest x-ray image reviewed shows poor inspiratory effort and therefore cannot rule out pulmonary edema. Lasix 40 mg IV given. 3. Acute kidney injury with CKD stage II, diabetic nephropathy: resolved Admitted with BUN/creatinine 35/1.52. Nephrology following, DEAN felt to be prerenal 4. Rhabdomyolysis 2/2 prolonged laying on the chair. 5. Diabetes mellitus type 2 with hypoglycemia with history of long-term com plication: Patient has diabetic nephropathy, neuropathy multiple feet wound and amputation in the past. Accu-Cheks every 6 hourly. Glucose in BMP is 146. Patient follows wound clinic. Wound nurse consulted. 6. Chronic conditions: Hypertension: fair control. Most recently normal. EKG sinus tachycardia. Dyslipidemia: Hold statin as patient having rhabdomyolysis. Class III obesity with BMI of 39.6 kg/m?. Weight loss advised Obstructive sleep apnea: CPAP at bedtime GERD with last admission for Kalie-Acevedo tear and gastritis: Patient had EGD at that time. Continue PPI BPH ?Patient is on tamsulosin Chronic cigarette smoking/Tobacco dependence: Nicotine patch when patient is more awake. Anxiety and depression: Hold antidepressant medication as patient is lethargy. 7. DVT prophylaxis: Heparin 5000 subcutaneous every 8 hourly as patient is high risk for thromboembolism but is also high risk of bleeding. Discontinue if platelet count drops less than 50,000 or hemoglobin less than 8 g% 8. Dysphagia Speech therapy following recommend n.p.o. at present. Limited by MS HALEY pending greater than 20 minutes reviewing data, vitals, previous documentation. Charges/Coding Visit Charges Inpatient E&M: 67803 Subs Hosp L2
--- NOTE | 2022-02-14 10:50 | PCM.PN.REN ---
Subjective Subjective Following for DEAN Resting in bed, alert. No overnight events. Objective Data Objective Data Vital Signs: Vital Signs Temp Pulse Resp BP Pulse Ox 97.6 F L 91 18 148/72 H 94 02/14/22 08:50 02/14/22 08:50 02/14/22 08:50 02/14/22 08:50 02/14/22 08:50 Oxygen Flow Rate (L/min) 2 Oxygen Delivery Method Room Air Weight: 140.8 kg Body Mass Index (BMI) 39.6 Intake & Output: Intake and Output for Last 24 Hours 02/12/22 02/13/22 02/14/22 23:59 23:59 23:59 Intake Total 1860.00 / 1860.00 1060 / 1060 1000 / 1000 Balance 1860.00 / 1860.00 1060 / 1060 1000 / 1000 Lab / Micro Data Result Diagrams: 02/13/22 05:20 02/13/22 05:20 Labs: Laboratory Results - last 24 hr 02/13/22 11:35: POC Glucose 257 H 02/13/22 17:23: POC Glucose 245 H 02/13/22 23:33: POC Glucose 303 H 02/14/22 05:21: POC Glucose 253 H Micro: Microbiology 02/10/22 11:10 Blood Culture (Wb) - Anticubital Left Blood Culture - Preliminary No growth in 48 hours. 02/10/22 11:10 Blood Culture (Wb) - Arm Left Blood Culture - Preliminary No growth in 48 hours. 02/10/22 11:10 Nasal Secretion SARS-CoV-2 & FLU Antigen (Rapid) - Final Physical Exam Narrative General: Lethargic but arousable with voice HEENT: Normocephalic, atraumatic, mucous membranes moist Heart: S1, S2, RRR. No rubs or murmurs. Lungs: Clear anteriorly Abdomen: Normal bowel sounds, soft, nontender Extremities: No pitting edema. Psychiatric: Flat affect. Skin: Warm and dry. Assessment & Plan Assessment/Plan (1) DEAN (acute kidney injury): PLAN: - The patient has normal baseline renal function with serum creatinine of 0.8 to 0.9 mg/dL at baseline. Creatinine peaked 1.52mg/dL 02/10/2022. No labs today, last 4 days SCr normalized with last SCr 0.73mg/dL on 02/13. -Suspect Nonoliguric DEAN is due to prerenal azotemia. I suspect this is more from true volume depletion versus cardiorenal DEAN. -Echocardiogram done in October 2021 showed normal EF at 60%. - DEAN resolved. (2) Rhabdomyolysis: QUALIFIERS: Rhabdomyolysis type: non-traumatic Qualified Code(s): M62.82 - Rhabdomyolysis PLAN: -CPK peaked 10,693 on 02/11. Has been on IVF at 75ml/hr. Had speech therapy yesterday and was on puree diet with thin liquids. Had coughing after breakfast this am, therefore to have cookie swallow today. Will stop IVF (3) Dyspnea: PLAN: - stable (4) Weakness: PLAN: - The patient presented with facial drooping and right-sided weakness. CT head did not show acute pathology. MRI brain negative for Stroke - mental status is better - PT/OT (5) Hypoglycemia: PLAN: - The patient presented with hypoglycemia which has been corrected. - discharge plans in progress, at time of discharge to go to [facility] for rehab, possibly today. - DEAN resolved, patient is nonoliguric and SCr back to baseline. Can be off IVF now. Patient does not need nephrology follow up, to follow up with PCP. Will sign off. Please call if any questions.
--- NOTE | 2022-02-14 11:16 | CASEMGMT ---
ROBBIN spoke with Romi at [facility] and let her know patient will hopefully be coming today. Patient has a Modified Barium Swallow at 1p today. Kylah FRANZ
[2022-02-14 11:21] VITALS: PULSE 85; RESP 20
[2022-02-14 11:31] LABS: Bedside Glucose 272 mg/dL (74-106)
--- NOTE | 2022-02-14 12:22 | SP.MBSS_ITS ---
Modified Barium Swallow - Patient Information Study Date: 02/14/22 Study Time: 13:00 Direct Billable Minutes: 90 Total Minutes procedure & reportin Diagnosis: Acute alteration in mental status (R41.82), Pneumonia (J18.9) Referring Physician: Roni Alberto Reason for Referral: Objectively assess swallow function, risk for aspiration, and determine recommendations for least restrictive diet textures and compensatory strategies to improve safety of swallow. Medical History: Luke Wynne is a 66-year-old male with extensive PMH, including DM type II, obesity, CKD, HTN, chronic ulcer of left and right feet, tobacco abuse (SEE chart for full PMH). He was brought to [facility] ED 02/10/2022 after his son found him at home, unresponsive, right-sided facial droop, not using right hand. He was admitted for management of altered mental status, hypoglycemia, and rhabdomyolysis. Chest x-ray showed congestion with mild right pleural effusion with associated atelectasis. MRI negative for CVA. He was referred for speech consult to assess risk for aspiration after failing RN dysphagia screen. Initially, the CREDIT CONTROL OFFICER recommended NPO and frequent oral care. On 02/13/2022, he had improved attention to task and was upgraded at bedside for puree textures / thin liquids by tsp. Per ASSESSMENT COUNSELOR and RN, pt had increased s/s of aspiration with liquids. During dysphagia treatment on 02/14/2022, he demonstrated 2 coughing episodes with sips of water via tsp and cup. Recommended NPO with plans for MBS study to objective assess aspiration risk and determine safest, LRD textures. Current Diet Ordered: NPO Dentition: Edentulous Mental Status: Impaired - persistent confusion from acute alteration in mental status Respiratory Status: Oxygenating on Room Air - Penetration-Aspiration Scale Penetration-Aspiration Scale: OBJECTIVE ASSESSMENT OF SWALLOW FUNCTION (QUANTITATIVE ? PER TRIAL): PENETRATION / ASPIRATION SCALE (RICHARD): 1 = does not enter airway 2 = enters airway/above vocal folds/ejected 3 = enters airway/above vocal folds/not ejected 4 = enters airway/contacts vocal folds/ejected 5 = enters airway/contacts vocal folds/not ejected 6 = enters airway/below vocal folds/ejected 7 = enters airway/below vocal folds/not ejected despite effort 8 = enters airway/below vocal folds/no effort VIDEOFLOROSCOPIC SCALE SCORE (RICHARD): Grade I = aspiration of material that has penetrated into the laryngeal vestibule, intact cough reflex Grade II = aspiration < 10 % of the bolus, intact cough reflex Grade III = aspiration of < 10 % of the bolus, reduced cough reflex or aspiration of > 10 % of the bolus, intact cough reflex Grade IV = aspiration of > 10 % of the bolus, reduced cough reflex - Penetration-Aspiration Scale Score Thin Liquid via teaspoon Result: 5= enters airways/contacts vocal folds/not ejected - Cannot definitively rule out aspiration due to patient's body habitus. Thin Liquid via teaspoon Trial 2 Result: 3= enters airways/above vocal folds/not ejected Thin Liquid via large single sip from cup Result: 3= enters airways/above vocal folds/not ejected [place] Thick Liquid via teaspoon Result: 2= enter airway/above vocal folds/ejected [place] Thick Liquid via large single sip from cup Result: 3= enters airways/above vocal folds/not ejected Honey Thick Liquid via teaspoon Result: 1= does not enter airway Honey Thick Liquid via small single sip from cup Result: 1= does not enter airway Pudding via teaspoon Result: 1= does not enter airway Thin Liquid via large single sip from cup Trial 2 Result: 5= enters airways/contacts vocal folds/not ejected - Cannot definitively rule out aspiration due to patient's body habitus. [place] Thick Liquid via small single sip from cup Result: 1= does not enter airway [place] Thick Liquid via teaspoon Trial 2 Result: 2= enter airway/above vocal folds/ejected - Oral Phase Labial Seal: Escape beyond interlabial space; no extension beyond justa border Tongue Control During Bolus Hold: Posterior escape of greater than half of bolus Bolus Transport/Lingual Motion: Delayed initiation of tongue motion Oral Residue: Residue collection on oral structures - Most notable with honey thick trials and large cup sips of various liquids - Pharyngeal Phase Initiation of Pharyngeal Swallow: Bolus head in pyriforms - bolus head in the laryngeal vestibule prior to swallow onset for thin liquids via cup Soft Palate Elevation: No bolus between soft palate and pharyngeal wall Laryngeal Elevation: Partial superior movement thyroid cart/partial apprx aryt- epig petiole Anterior Hyoid Excursion: Partial anterior movement Epiglottic Movement: Complete inversion Laryngeal Vestibule Closure at Height of Swallow: Incomplete; narrow column of air/contrast in laryngeal vestibule Pharyngeal Stripping Wave: Present - complete Pharyngoesophageal Segment Opening: Complete distension and complete duration; no obstruction of flow Tongue Base Retraction: Narrow column of contrast between tongue base & post. pharyngeal wall Pharyngeal Residue: Collection of residue within or on pharyngeal structures - Treatment Strategies Effects of treatment strategies attemped:: Decreased bolus size = Effective. - Diagnosis/Impression Diagnosis: Moderate oropharyngeal dysphagia (R13.12) Impression: The oral phase is marked by decreased bolus control with delayed initiation for A-P transport. He demonstrated posterior loss to the laryngeal vestibule and pyriform sinuses of cup sips of thin liquid trials prior to swallow onset. Did not trial cookie on this date due to poor bolus control and little to no bolus manipulation of ice chip trials in previous sessions. He had mild-moderate oral residue after the swallow. The pharyngeal phase is marked by mildly decreased laryngeal elevation and moderately decreased anterior hyoid excursion with resulting decreased airway closure during the swallow. He demonstrated delayed swallow onset. He also presented with mild-moderate pharyngeal residue after the swallow. He demonstrated laryngeal penetration of thin liquids via tsp and cup to the vocal folds without full ejection. He demonstrated trace laryngeal penetration of nect ar by tsp that did fully eject from the laryngeal vestibule. SEE PAS scores above for full details. Could not rule out aspiration on any of the above noted trials due to pt's body habitus. - Recommendations Diet: Puree Textures, [place]-thick Liquids Comment: Continue frequent oral care Compensatory Strategies: Small Bites, Liquid by Teaspoon Only, Slow Rate, Sitting upright, Remain sitting upright for 30 minutes after PO intake Supervision: Total Feed - only if FULLY alert Recommend Repeat Modified Barium Swallow: Yes Need for Skilled Speech Therapy Services: Yes Comment: Will recommend the patient for skilled dysphagia therapy to address moderate impairment in oropharyngeal swallow function. Would consider the patient for oropharyngeal strengthening to improve lingual strength and coordination, la ryngeal elevation, hyoid excursion, and tongue base retraction. The patient would benefit from thorough education regarding diet recommendations and recommended compensatory strategies. Education Completed: 1. Described result of evaluation., 7. Pt requires further education on strategies & risks. - Status Active ST Patient: Active - Contact Information [facility] Speech Therapy:: Maggy Winter M.A. [facility] [place]-CREDIT CONTROL OFFICER Speech-Language Pathologist [facility] [address] [place] [address] [email or web address] [phone] 02/14/22 12:29
--- NOTE | 2022-02-14 13:36 | TREXTCAR_ITS ---
Documented by User: [email or web address] 02/14/22 13:46 Diet 02/14/22 13:12 Diet: Consistent Carb - Calorie Controlled Food consistency:: Pureed Liquid Consistency:: [place]/Mildly Thick Is pt able to select menu?: No Diet Comments: TOTAL FEED ONLY IF FULLY ALERT, liquid by tsp only How many daily calories?: 1800 calorie Routine Orders/Code Status Code Status: DNRCC-A Wound(s) second digit on right foot: Wound Type: Abrasion right lower extremity: Wound Type: scabs right foot: Wound Type: Neuropathic/Diabetic Foot Ulcer Back of RUE: Wound Type: Abrasion Left foot: Wound Type: Neuropathic/Diabetic Foot Ulcer Coccyx: Wound Type: Pressure Injury Suggestions for Active Care Change Position every (hours): 2 Positions to Avoid: back Therapies Physical Therapy: Eval and Treat Occupational Therapy: Eval and Treat Speech Therapy: Eval and Treat Problem/Diagnosis (1) DEAN (acute kidney injury): Status: Acute (2) Rhabdomyolysis: Status: Acute (3) Acute alteration in mental status: Status: Acute Allergies/Procedures Done in Hospital Allergies No Known Allergies Allergy (Verified 01/26/22 17:04) Procedures: 2-D Echocardiogram and EKG Type of Care/Length of Stay Estimated LOS: Convalescent Care Less Than 30 days Type of Care Needed: Skilled Rehab Potential: Fair Prognosis: Fair Additional Orders/Day of Discharge Day of Discharge: 02/14/22 Dietary and Speech Recommendations Dietitian Recommendations/Changes: ADAT to 2200 Carbohydrate Modified (Consistent Carbohydrate diet) Brett BID with meals when diet advances Speech Linguistic Eval Summary: Diet: Puree Textures, [place]-thick Liquids Comment: Continue frequent oral care Compensatory Strategies: Small Bites, Liquid by Teaspoon Only, Slow Rate, Sitti ng upright, Remain sitting upright for 30 minutes after PO intake Supervision: Total Feed - only if FULLY alert Recommend Repeat Modified Barium Swallow: Yes Need for Skilled Speech Therapy Services: Yes Education Completed: 1. Described result of evaluation., 7. Pt requires further education on strategies & risks. Discharge Plan Admission Admit Date/Time: 02/10/22 15:12 Primary Reason for Your Visit: Rhabdomylosis, Encephalopathy Attending Provider: Roni Alberto Primary Care Provider: Jaime Meyer Chi Consulting Providers: Rebecca Howard ; Jon Malone Discharge Orders/Prescriptions Prescriptions: New atorvastatin 80 mg Tablet 80 mg PO QHS Qty: 0 RF: 0 insulin lispro [Humalog KwikPen Insulin] 100 unit/mL Insulin Pen See Protocol unit subcut Q6 Qty: 0 RF: 0 menthol-zinc oxide [Calmoseptine] 0.44-20.6 % Ointment 1 applic topical TID Qty: 0 RF: 0 insulin glargine-yfgn 100 unit/mL (3 mL) Insulin Pen 5 unit subcut DAILY Qty: 0 RF: 0 Continued tamsulosin 0.4 mg capsule 0.4 mg PO DAILY@1730 RF: 0 bupropion HCl 150 mg tablet extended release 24 hr 150 mg PO BID RF: 0 aspirin [Adult Low Dose Aspirin] 81 mg tablet,delayed release (DR/EC) 81 mg PO DAILY RF: 0 naproxen 500 mg tablet 500 mg PO BID PRN (Reason: Pain) RF: 0 multivitamin 1 EACH tablet 1 ea PO DAILY RF: 0 calcium carbonate 500 MG tablet 500 mg PO DAILY RF: 0 gabapentin 300 mg capsule 600 mg PO TIDCM RF: 0 acetaminophen 500 MG tablet 1,000 mg PO Q6H PRN (Reason: Pain Score 1-5) RF: 0 doxepin 25 mg capsule 25 mg PO QHS RF: 0 Farxiga 10 mg tablet 10 mg PO DAILY Qty: 90 RF: 1 Trulicity 0.75 mg/0.5 mL pen injector 0.75 mg subcut QWEEK Qty: 2 RF: 3 lisinopril 40 mg tablet 40 mg PO DAILY Qty: 90 RF: 0 Discontinued Humulin R U-500 (Conc) Kwikpen 500 unit/mL (3 mL) insulin pen 110 unit subcut TID Qty: 27 RF: 0 No Action atorvastatin 40 mg tablet 40 mg PO DAILY RF: 0 (DME) lancets 1 EACH misc See Rx Instructions .Route .MEDSUPPLY RF: 0 (DME) Dexcom G6 Transmitter Device See Rx Instructions .ROUTE .MEDSUPPLY Qty: 1 RF: 1 (DME) OneTouch Verio test strips Strip See Rx Instructions .ROUTE .MEDSUPPLY Qty: 100 RF: 8 (DME) FreeStyle Heather 2 Sensor Kit See Rx Instructions .ROUTE .MEDSUPPLY Qty: 2 RF: 6 Referrals / Follow Up: Jaime Meyer Chi, MD [Primary Care Provider] - Disposition Disposition (needs filled in before D/C Order can be placed): Group Home Facility Documented by User: Dr. Roni Alberto DO 02/14/22 13:56 Allergies/Procedures Done in Hospital Allergies No Known Allergies Allergy (Verified 01/26/22 17:04) Discharge Plan Admission Admit Date/Time: 02/10/22 15:12 Primary Reason for Your Visit: Rhabdomylosis, Encephalopathy Attending Provider: Roni Alberto Primary Care Provider: Jaime Meyer [employer] Consult[employer] Providers: Rebecca Howard ; Jon Malone Discharge Orders/Prescriptions Prescriptions: New atorvastatin 80 mg Tablet 80 mg PO QHS Qty: 0 RF: 0 insulin lispro [Humalog KwikPen Insulin] 100 unit/mL Insulin Pen See Protocol unit subcut Q6 Qty: 0 RF: 0 menthol-zinc oxide [Calmoseptine] 0.44-20.6 % Ointment 1 applic topical TID Qty: 0 RF: 0 insulin glargine-yfgn 100 unit/mL (3 mL) Insulin Pen 5 unit subcut DAILY Qty: 0 RF: 0 Continued tamsulosin 0.4 mg capsule 0.4 mg PO DAILY@1730 RF: 0 bupropion HCl 150 mg tablet extended release 24 hr 150 mg PO BID RF: 0 aspirin [Adult Low Dose Aspirin] 81 mg tablet,delayed release (DR/EC) 81 mg PO DAILY RF: 0 naproxen 500 mg tablet 500 mg PO BID PRN (Reason: Pain) RF: 0 multivitamin 1 EACH tablet 1 ea PO DAILY RF: 0 calcium carbonate 500 MG tablet 500 mg PO DAILY RF: 0 gabapentin 300 mg capsule 600 mg PO TIDCM RF: 0 acetaminophen 500 MG tablet 1,000 mg PO Q6H PRN (Reason: Pain Score 1-5) RF: 0 doxepin 25 mg capsule 25 mg PO QHS RF: 0 Farxiga 10 mg tablet 10 mg PO DAILY Qty: 90 RF: 1 Trulicity 0.75 mg/0.5 mL pen injector 0.75 mg subcut QWEEK Qty: 2 RF: 3 lisinopril 40 mg tablet 40 mg PO DAILY Qty: 90 RF: 0 Discontinued Humulin R U-500 (Conc) Kwikpen 500 unit/mL (3 mL) insulin pen 110 unit subcut TID Qty: 27 RF: 0 No Action atorvastatin 40 mg tablet 40 mg PO DAILY RF: 0 (DME) lancets 1 EACH misc See Rx Instructions .Route .MEDSUPPLY RF: 0 (DME) [employer] G6 Transmitter Device See Rx Instructions .ROUTE .MEDSUPPLY Qty: 1 RF: 1 (DME) OneTouch Verio test strips Strip See Rx Instructions .ROUTE .MEDSUPPLY Qty: 100 RF: 8 (DME) FreeStyle Heather 2 Sensor Kit See Rx Instructions .ROUTE .MEDSUPPLY Qty: 2 RF: 6 Referrals / Follow Up: Jaime Meyer Chi, MD [Primary Care Provider] - Disposition Disposition (needs filled in before D/C Order can be placed): Group Home Facility
--- NOTE | 2022-02-14 13:46 | PCM.DC.SUM ---
Documented by User: NAGA Lechuga 02/14/22 13:59 Providers Date of Admission: 02/10/22 Primary Care Physician: Dr. Jaime Meyer MD Consultations 02/10/22 16:13 Consult: Nephrology Routine Consulting Provider: Rebecca Howard Reason for Consult: DEAN on CKD, Rhabdo EMERGENT Consult: No MD Notified: Yes Date Notified: 02/10/22 Time Notified: 16:13 Method of Notification: Verbal 02/10/22 16:50 Consult: Onc/Wound/business travel consultant Routine Comment: Reason for Consult:: chronic wound to left foot Reason For Visit: AMS/RIGHT SIDED WEAKNESS Diagnosis Discharge Diagnosis (1) DEAN (acute kidney injury): Status: Acute Code(s): N17.9 - Acute kidney failure, unspecified (2) Rhabdomyolysis: Status: Acute Code(s): M62.82 - Rhabdomyolysis Qualifiers: Rhabdomyolysis type: non-traumatic Qualified Code(s): M62.82 - Rhabdomyolysis (3) Acute alteration in mental status: Status: Acute Code(s): R41.82 - Altered mental status, unspecified Medications at Discharge Home Medications calcium carbonate 500 mg PO DAILY 06/23/17 multivitamin 1 ea PO DAILY 06/23/17 atorvastatin 40 mg tablet 40 mg PO DAILY 10/18/19 bupropion HCl 150 mg 24 hr tablet, extended release 150 mg PO BID tab 10/18/19 tamsulosin 0.4 mg capsule 0.4 mg PO DAILY@1730 cap 10/18/19 gabapentin 300 mg capsule 600 mg PO TIDCM cap 04/24/20 aspirin 81 mg tablet,delayed release 81 mg PO DAILY tab 07/28/20 lancets 09/01/20 acetaminophen 1,000 mg PO Q6H PRN tab 10/03/20 naproxen 500 mg tablet 500 mg PO BID PRN 10/31/20 blood-glucose transmitter #1 ea 11/30/20 blood sugar diagnostic #100 ea 08/06/21 flash glucose sensor #2 ea 08/23/21 Farxiga 10 mg tablet 10 mg PO DAILY #90 tab NS 09/03/21 dulaglutide 0.75 mg/0.5 mL subcutaneous pen injector 0.75 mg SUBCUT QWEEK #2 ml 11/14/21 lisinopril 40 mg tablet 40 mg PO DAILY #90 tab 03/02/22 doxepin 25 mg PO QHS 02/10/22 atorvastatin 80 mg PO QHS #0 tab 02/14/22 insulin glargine-yfgn 5 unit SUBCUT DAILY #0 ml 02/14/22 insulin lispro [Humalog KwikPen Insulin] See Protocol SUBCUT Q6 #0 ml 02/14/22 menthol-zinc oxide [Calmoseptine] 1 applic TOPICAL TID #0 g 02/14/22 Hospital Course Procedures 2-D Echocardiogram and EKG Summary of Care Provided Minutes Spent on Discharge: 35 Hospital Course: Patient initially presented to the ER on 02/10/2022 after being found down at his home for an unknown amount of time. Patient was noted to have rhabdomyolysis along with acute kidney injury and encephalopathy. During patient's admission he underwent a brain CT, head neck CTA, brain MRI, cervical spine MRI, lumbar puncture which was unsuccessful, modified barium swallow and multiple x-rays to rule out injury. Patient was not found to have any acute injuries and was negative for CVA. Patient also was not found to have any acute source of infection. Patient lives home alone and following this episode there is concern for patient's safety so patient will be placed in a nursing facility for continued PT, OT, ST. Patient was also noted to be hypoglycemic on initial presentation, patient is diabetic and takes a large amount of insulin at home. Nephrology followed patient throughout admission and his DEAN did resolve and patient has returned to baseline BUN and creatinine. Patient's mental status has improved as patient is now alert and able to carry on a conversation however he remains confused. Patient will need outpatient work-up for neurodegenerative evaluation. Physical Exam Const alert and no apparent distress Orientation / Consciousness: oriented to person, oriented to place and confused Exam Limitations: altered mental status Nutritional Appearance: obese HEENT normocephalic, head/scalp atraumatic and moist oral mucous membranes Eyes conjunctivae normal and no scleral icterus Neck no lymphadenopathy and supple General: trachea midline Resp normal respiratory effort, normal air movement and clear to auscultation bilaterally Effort and Inspection: able to speak in complete sentences and symmetric chest movement Cardio regular rate, regular rhythm, S1 normal heart sound, S2 normal heart sound, no murmurs and peripheral pulses 2+ throughout Peripheral Pulses: pulses 2+ throughout GI normal to inspection, nondistended, normoactive bowel sounds, soft to palpation and non-tender Extremity normal to inspection and full ROM Extremity Narrative: staus post left transmetatarsal amputation Skin no rashes or lesions noted Skin Narrative: Stage II decubitus coccyx ulceration. Left medial plantar diabetic ulceration, no s/sx of infection. Several right lower extremity venous stasis ulcers noted. Neuro no sensory deficits noted and deep tendon reflexes 2+ bilaterally Neuro Narrative: Slurred speech. Sensorium / Orientation: awake and alert Psych mental status grossly normal, cooperative and affect normal Activity / Motor Behavior: restless Weight / BMI Weight Weight: 310 lb 6.574 oz Body Mass Index (BMI) 39.6 ABG / Lab / Microbiology Data Result Diagrams: 02/13/22 05:20 02/13/22 05:20 Laboratory: Laboratory Results - last 24 hr 02/13/22 17:23: POC Glucose 245 H 02/13/22 23:33: POC Glucose 303 H 02/14/22 05:21: POC Glucose 253 H 02/14/22 11:25: POC Glucose 272 H Microbiology: Microbiology 02/10/22 11:10 Blood Culture (Wb) - Anticubital Left Blood Culture - Preliminary No growth in 48 hours. 02/10/22 11:10 Blood Culture (Wb) - Arm Left Blood Culture - Preliminary No growth in 48 hours. 02/10/22 11:10 Nasal Secretion SARS-CoV-2 & FLU Antigen (Rapid) - Final D/C Instructions Discharge Diet: Low fat / Low cholesterol and 2000 Calorie Control Diet Discharge Activity: Return to Normal Activity Call your doctor if you observe: Numbness or Tingling, Shortness of breath and Chest pain Additional Dressing/Incision Instructions: Cleanse coccyx with normal saline, pat dry, apply mepilex q7days and PRN if soiled. Cleanse left foot wound with normal saline, pat dry. Apply adaptic and guaze pad, wrap with kerlix daily. Additional Instructions: ST recommends f/u MBS Meaningful Use Info Meaningful Use Diagnoses (Choose all that apply): None applicable Discharge Plan Admission Admit Date/Time: 02/10/22 15:12 Primary Reason for Your Visit: Rhabdomylosis, Encephalopathy Attending Provider: Roni Alberto Primary Care Provider: Jaime Meyer Chi Consulting Providers: Rebecca Howard ; Jon Malone Discharge Orders/Prescriptions Prescriptions: New atorvastatin 80 mg Tablet 80 mg PO QHS Qty: 0 RF: 0 insulin lispro [Humalog KwikPen Insulin] 100 unit/mL Insulin Pen See Protocol unit subcut Q6 Qty: 0 RF: 0 menthol-zinc oxide [Calmoseptine] 0.44-20.6 % Ointment 1 applic topical TID Qty: 0 RF: 0 insulin glargine-yfgn 100 unit/mL (3 mL) Insulin Pen 5 unit subcut DAILY Qty: 0 RF: 0 Continued tamsulosin 0.4 mg capsule 0.4 mg PO DAILY@1730 RF: 0 bupropion HCl 150 mg tablet extended release 24 hr 150 mg PO BID RF: 0 aspirin [Adult Low Dose Aspirin] 81 mg tablet,delayed release (DR/EC) 81 mg PO DAILY RF: 0 naproxen 500 mg tablet 500 mg PO BID PRN (Reason: Pain) RF: 0 multivitamin 1 EACH tablet 1 ea PO DAILY RF: 0 calcium carbonate 500 MG tablet 500 mg PO DAILY RF: 0 gabapentin 300 mg capsule 600 mg PO TIDCM RF: 0 acetaminophen 500 MG tablet 1,000 mg PO Q6H PRN (Reason: Pain Score 1-5) RF: 0 doxepin 25 mg capsule 25 mg PO QHS RF: 0 Farxiga 10 mg tablet 10 mg PO DAILY Qty: 90 RF: 1 Trulicity 0.75 mg/0.5 mL pen injector 0.75 mg subcut QWEEK Qty: 2 RF: 3 lisinopril 40 mg tablet 40 mg PO DAILY Qty: 90 RF: 0 Discontinued Humulin R U-500 (Conc) Kwikpen 500 unit/mL (3 mL) insulin pen 110 unit subcut TID Qty: 27 RF: 0 No Action atorvastatin 40 mg tablet 40 mg PO DAILY RF: 0 (DME) lancets 1 EACH misc See Rx Instructions .Route .MEDSUPPLY RF: 0 (DME) Dexcom G6 Transmitter Device See Rx Instructions .ROUTE .MEDSUPPLY Qty: 1 RF: 1 (DME) OneTouch Verio test strips Strip See Rx Instructions .ROUTE .MEDSUPPLY Qty: 100 RF: 8 (DME) FreeStyle Heather 2 Sensor Kit See Rx Instructions .ROUTE .MEDSUPPLY Qty: 2 RF: 6 Referrals / Follow Up: Jaime Meyer Chi, MD [Primary Care Provider] - Disposition Disposition (needs filled in before D/C Order can be placed): [facility] Documented by User: Dr. Roni Alberto DO 02/14/22 14:43 Providers Date of Admission: 02/10/22 Reason For Visit: AMS/RIGHT SIDED WEAKNESS Medications at Discharge Home Medications calcium carbonate 500 mg PO DAILY 06/23/17 multivitamin 1 ea PO DAILY 06/23/17 atorvastatin 40 mg tablet 40 mg PO DAILY 10/18/19 bupropion HCl 150 mg 24 hr tablet, extended release 150 mg PO BID tab 10/18/19 tamsulosin 0.4 mg capsule 0.4 mg PO DAILY@1730 cap 10/18/19 gabapentin 300 mg capsule 600 mg PO TIDCM cap 04/24/20 aspirin 81 mg tablet,delayed release 81 mg PO DAILY tab 07/28/20 lancets 09/01/20 acetaminophen 1,000 mg PO Q6H PRN tab 10/03/20 naproxen 500 mg tablet 500 mg PO BID PRN 10/31/20 blood-glucose transmitter #1 ea 11/30/20 blood sugar diagnostic #100 ea 08/06/21 flash glucose sensor #2 ea 08/23/21 Farxiga 10 mg tablet 10 mg PO DAILY #90 tab NS 09/03/21 dulaglutide 0.75 mg/0.5 mL subcutaneous pen injector 0.75 mg SUBCUT QWEEK #2 ml 11/14/21 lisinopril 40 mg tablet 40 mg PO DAILY #90 tab 11/21/21 doxepin 25 mg PO QHS 02/10/22 atorvastatin 80 mg PO QHS #0 tab 02/14/22 insulin glargine-yfgn 5 unit SUBCUT DAILY #0 ml 02/14/22 insulin lispro [Humalog KwikPen Insulin] See Protocol SUBCUT Q6 #0 ml 02/14/22 menthol-zinc oxide [Calmoseptine] 1 applic TOPICAL TID #0 g 02/14/22 Hospital Course Operations None Procedures 2-D Echocardiogram Summary of Care Provided Hospital Course: Patient seen and examined independently. Data and vitals reviewed. I agree with the above note by the nurse practitioner. 1. Acute encephalopathy most likely due to stroke/complicated with metabolic encephalopathy MRI brain showed chronic involutional changes. ?Hummingbird sign/Ayo Mouse sign? Concern for underlying neurdegenerative d/o (e.g., PSP, v other) Even though neurodegenerative process may be the likely etiology compounded by patient's metabolic derangements, LP performed to rule out any other infectious etiology. SOC consult performed and recommended MRI of the cervical spine. MRI of the cervical spine showed chronic degenerative changes. TSH WNL. LP unable to be performed given his body habitus as well as writhing around. Given the clinical suspicion for meningitis or encephalitis is low I feel the risks of reattempting this outweigh the benefits. Previously my encounters in this institution has been that we are unable to do conscious sedation for MRIs. And I do not feel that transfer to a tertiary facility is necessary for conscious sedation given the clinical suspicion for encephalitis and meningitis is low. 2. Acute on chronic HFpEF: Patient had last echo in 05/11/2019 reported EF 55% stage I diastolic dysfunction hypokinetic basal wall. Structurally normal valves. Chest x-ray image reviewed shows poor inspiratory effort and therefore cannot rule out pulmonary edema. Lasix 40 mg IV given. 3. Acute kidney injury with CKD stage II, diabetic nephropathy: resolved Admitted with BUN/creatinine 35/1.52. Nephrology following, DEAN felt to be prerenal 4. Rhabdomyolysis 2/2 prolonged laying on the chair. 5. Diabetes mellitus type 2 with hypoglycemia with history of long-term complication: Patient has diabetic nephropathy, neuropathy multiple feet wound and amputation in the past. Accu-Cheks every 6 hourly. Glucose in BMP is 146. Patient follows wound clinic. Wound nurse consulted. 6. Chronic conditions: Hypertension: fair control. Most recently normal. EKG sinus tachycardia. Dyslipidemia: Hold statin as patient having rhabdomyolysis. Class III obesity with BMI of 39.6 kg/m?. Weight loss advised Obstructive sleep apnea: CPAP at bedtime GERD with last admission for Kalie-Acevedo tear and gastritis: Patient had EGD at that time. Continue PPI BPH ?Patient is on tamsulosin Chronic cigarette smoking/Tobacco dependence: Nicotine patch when patient is more awake. Anxiety and depression: Hold antidepressant medication as patient is lethargy. 7. DVT prophylaxis: Heparin 5000 subcutaneous every 8 hourly as patient is high risk for thromboembolism but is also high risk of bleeding. Discontinue if platelet count drops less than 50,000 or hemoglobin less than 8 g% 8. Dysphagia likely due to underlying neurologic disorder. toatal assist. liquid by TSP. 9. Debility: to SNF. I am concerned pt will not return to a normal functional status. ABG / Lab / Microbiology Data Result Diagrams: 02/13/22 05:20 02/13/22 05:20 Discharge Plan Admission Admit Date/Time: 02/10/22 15:12 Primary Reason for Your Visit: Rhabdomylosis, Encephalopathy Attending Provider: Roni Alberto Primary Care Provider: Jaime Meyer Chi Consulting Providers: Rebecca Howard ; Jon Malone Discharge Orders/Prescriptions Prescriptions: New atorvastatin 80 mg Tablet 80 mg PO QHS Qty: 0 RF: 0 insulin lispro [Humalog KwikPen Insulin] 100 unit/mL Insulin Pen See Protocol unit subcut Q6 Qty: 0 RF: 0 menthol-zinc oxide [Calmoseptine] 0.44-20.6 % Ointment 1 applic topical TID Qty: 0 RF: 0 insulin glargine-yfgn 100 unit/mL (3 mL) Insulin Pen 5 unit subcut DAILY Qty: 0 RF: 0 Continued tamsulosin 0.4 mg capsule 0.4 mg PO DAILY@1730 RF: 0 bupropion HCl 150 mg tablet extended release 24 hr 150 mg PO BID RF: 0 aspirin [Adult Low Dose Aspirin] 81 mg tablet,delayed release (DR/EC) 81 mg PO DAILY RF: 0 naproxen 500 mg tablet 500 mg PO BID PRN (Reason: Pain) RF: 0 multivitamin 1 EACH tablet 1 ea PO DAILY RF: 0 calcium carbonate 500 MG tablet 500 mg PO DAILY RF: 0 gabapentin 300 mg capsule 600 mg PO TIDCM RF: 0 acetaminophen 500 MG tablet 1,000 mg PO Q6H PRN (Reason: Pain Score 1-5) RF: 0 doxepin 25 mg capsule 25 mg PO QHS RF: 0 Farxiga 10 mg tablet 10 mg PO DAILY Qty: 90 RF: 1 Trulicity 0.75 mg/0.5 mL pen injector 0.75 mg subcut QWEEK Qty: 2 RF: 3 lisinopril 40 mg tablet 40 mg PO DAILY Qty: 90 RF: 0 Discontinued Humulin R U-500 (Conc) Kwikpen 500 unit/mL (3 mL) insulin pen 110 unit subcut TID Qty: 27 RF: 0 No Action atorvastatin 40 mg tablet 40 mg PO DAILY RF: 0 (DME) lancets 1 EACH misc See Rx Instructions .Route .MEDSUPPLY RF: 0 (DME) Dexcom G6 Transmitter Device See Rx Instructions .ROUTE .MEDSUPPLY Qty: 1 RF: 1 (DME) OneTouch Verio test strips Strip See Rx Instructions .ROUTE .MEDSUPPLY Qty: 100 RF: 8 (DME) FreeStyle Heather 2 Sensor Kit See Rx Instructions .ROUTE .MEDSUPPLY Qty: 2 RF: 6 Referrals / Follow Up: Jaime Meyer Chi, MD [Primary Care Provider] - Disposition Disposition (needs filled in before D/C Order can be placed): [facility] Facility Charges/Coding Visit Charges Inpatient E&M: 42805 Disch Hosp
--- NOTE | 2022-02-14 14:44 | CASEMGMT ---
SW arranged for patient to get picked up at 4p via cot. SW called patient's son, Matthew and let him know that patient was approved and he will go to [facility] today at 4p. Awaiting med list and COVID test results. SW did notify RN and pharmaceutical worker. Plan: d/c to [facility] under skilled level of care on a convalescent stay. [facility] will transport via cot. Kylah FRANZ
[2022-02-14 14:46] VITALS: PULSE 89; RESP 20
[2022-02-14 14:50] VITALS: BP 158/82; PULSE 87; RESP 18; TEMP 36.6; O2SAT 95
--- NOTE | 2022-02-14 15:42 | NURSING ---
Report called to [facility]. Pt to be picked up at 1600
== END 2022-02-14 16:25 | disposition skilled nursing facility (03) | DRG 70 ==
LOC: ED 15:23 → PCU 15:42
PROVIDERS: Internal Medicine Nephrology; Nurse Practitioner Family; Radiology Diagnostic Radiology; Admitting Provider Internal Medicine; Emergency Provider Emergency Medicine; PCP Family Medicine Geriatric Medicine
DX: G93.41 Metabolic encephalopathy (principal); I50.33 Acute on chronic diastolic (congestive) heart failure; N17.9 Acute kidney failure, unspecified; I13.0 Hypertensive heart and chronic kidney disease with heart failure and stage 1 through stage 4 chronic kidney disease, or unspecified chronic kidney disease; M62.82 Rhabdomyolysis; L89.139 Pressure ulcer of right lower back, unspecified stage; E11.649 Type 2 diabetes mellitus with hypoglycemia without coma; L89.152 Pressure ulcer of sacral region, stage 2; L89.302 Pressure ulcer of unspecified buttock, stage 2; L97.519 Non-pressure chronic ulcer of other part of right foot with unspecified severity; E11.42 Type 2 diabetes mellitus with diabetic polyneuropathy; E11.51 Type 2 diabetes mellitus with diabetic peripheral angiopathy without gangrene; E66.01 Morbid (severe) obesity due to excess calories; E11.21 Type 2 diabetes mellitus with diabetic nephropathy; L97.529 Non-pressure chronic ulcer of other part of left foot with unspecified severity; E11.621 Type 2 diabetes mellitus with foot ulcer; E11.22 Type 2 diabetes mellitus with diabetic chronic kidney disease; E11.59 Type 2 diabetes mellitus with other circulatory complications; I12.9 Hypertensive chronic kidney disease with stage 1 through stage 4 chronic kidney disease, or unspecified chronic kidney disease; F17.210 Nicotine dependence, cigarettes, uncomplicated; G47.33 Obstructive sleep apnea (adult) (pediatric); E78.2 Mixed hyperlipidemia; N18.2 Chronic kidney disease, stage 2 (mild); K21.9 Gastro-esophageal reflux disease without esophagitis; I87.2 Venous insufficiency (chronic) (peripheral); E87.5 Hyperkalemia; F41.9 Anxiety disorder, unspecified; Z51.5 Encounter for palliative care; Z79.82 Long term (current) use of aspirin; Z79.84 Long term (current) use of oral hypoglycemic drugs; Z66 Do not resuscitate; Z68.39 Body mass index [BMI] 39.0-39.9, adult; F32.A Depression, unspecified; R53.81 Other malaise; R13.10 Dysphagia, unspecified
CPT/HCPCS: 36415; 62328; 70450; 70496; 70498; 70551; 71046; 72156; 73030; 73080; 74230; 80048; 80053; 80061; 80069; 81001; 82550; 82570; 82962; 83036; 83735; 84100; 84300; 84443; 84484; 84540; 85025; 85384; 85610; 85652; 85730; 86140; 87040; 87426; 87428; 92526; 92610; 92611; 93005; 93306; 94002; 94003; 94640; 94762; 96360; 96361; 97110; 97162; 97167; 97530; 99283; 99285; 99406; A9575; J7030; P9612; Q9957; Q9967; A4216; C8929; J1940

== ENCOUNTER 2022-02-19 12:11 | Emergency (ER) | payer MEDICARE, MEDICAID, SELFPAY ==
[2022-02-19] VITALS (14 sets, daily range): BP systolic 73–132; BP diastolic 57–75; PULSE 87–126; RESP 25–46; TEMP 38.9–40.2; O2SAT 87–100; BMI 40.8
[2022-02-19 12:21] LABS: Bedside Glucose 319 mg/dL (74-106)
--- NOTE | 2022-02-19 12:23 | CT_ITS ---
STUDY: CT BRAIN WITHOUT CONTRAST REASON FOR EXAM: Male, 66 years old. Altered mental status RADIATION DOSAGE (If Supplied By Facility): CTDIvol = ( 44.99 ) mGy, DLP = ( 947.97 ) mGycm TECHNIQUE: Transaxial CT imaging of the brain was performed without administration of intravenous contrast material. Individualized dose optimization techniques were used for this CT. COMPARISON: Comparison is made with prior study dated 02/10/2022. FINDINGS: Normal soft tissue structures. Normal calvarium. There is mild cerebral atrophy with widening of the extra-axial spaces and ventricular dilatation. There are areas of decreased attenuation within the white matter tracts of the supratentorial brain, consistent with microvascular disease changes. Normal basal ganglia and thalami. Normal brainstem. Normal cerebellum. There is no intracranial hemorrhage. There are no findings of an acute ischemic infarction. Atherosclerotic calcification of the vertebral arteries and cavernous portions of the internal carotid arteries bilaterally. Normal visualized paranasal sinuses. CT/Brain/Head without Contrast IMPRESSION: Chronic involutional changes of the brain. Electronically Signed: John Gibbons MD at 13:13 EDT ,
--- NOTE | 2022-02-19 12:23 | EKG12_ITS ---
Test Reason : UNRESP Blood Pressure : / mmHG Vent. Rate : 123 BPM Atrial Rate : 123 BPM P-R Int : 144 ms QRS Dur : 086 ms QT Int : 328 ms P-R-T Axes : 050 057 068 degrees QTc Int : 469 ms Sinus tachycardia Otherwise normal ECG Confirmed by SULEIMAN VACA, DAWOOD ([id number]), clinical editor CHERYL EDWARD ([id number]) on 02/20/2022 9:02:12 AM Referred By: BB Confirmed By:DAWOOD BEARDEN MD
--- NOTE | 2022-02-19 12:23 | RAD_ITS ---
STUDY: X-RAY CHEST REASON FOR EXAM: Male, 66 years old. Fever. TECHNIQUE: Single AP portable view of the chest. COMPARISON: Comparison is made with prior study dated 02/10/2022. FINDINGS: EKG electrodes are seen. Persistent right basilar infiltrate although there has been improvement as compared to prior study. There is blunting of the right colonic angle. Normal size heart. Normal mediastinum and meche. Normal visualized pulmonary arteries. Normal visualized aortic arch and descending thoracic aorta. There are diffuse degenerative changes of the visualized thoracic spine. Normal visualized ribs, clavicles, and shoulders. There is no demonstrated abnormality of the visualized soft tissue structures of the upper abdomen. RAD/Chest 1 View (Portable) IMPRESSION: Residual pleural parenchymal changes at the right lung base although there has been improvement as compared to prior study. Electronically Signed: John Gibbons MD at 13:15 EDT ,
--- NOTE | 2022-02-19 12:26 | EDS_ITS ---
HPI History of Present Illness Chief Complaint: Unresponsive Informant: family and EMS Narrative Narrative: Family [facility] today and found that he appeared to be critically ill. They alerted penitentiary staff, no one seem to know anything about his condition today, they called EMS who transported him here. Paperwork that accompanies him it signed as a DNR Comfort Care arrest. Several family members are here and states they would not want him to be intubated nor would he want that. They seem to all be in agreement on this. Family states the last time they saw him was 3 days ago, he was tired and his arms were weak, but he was alert. Systolic blood pressure 92 prior to arrival. [facility] Medical History (Updated 02/19/22 @ 17:[address] 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 bone Chronic ulcer of left foot with necrosis of muscle Chronic ulcer of right foot with fat layer exposed Chronic ulcer of right foot with necrosis of muscle Corns and callosities CPAP (continuous positive airway pressure) dependence Debility Delayed wound healing Diabetic infection of left foot Diabetic neuropathy Diabetic polyneuropathy Diabetic ulcer of left foot Difficulty in walking, not elsewhere classified Difficulty walking Erectile dysfunction Fissure in skin of foot HTN (hypertension) Hyperlipidemia Localized edema Mixed hyperlipidemia Morbid obesity due to excess calories MRSA (methicillin resistant staph aureus) culture positive Neuropathic pain Non-pressure chronic ulcer of other part of left foot with fat layer exposed Non-pressure chronic ulcer of other part of right foot with fat layer exposed Non-pressure chronic ulcer of right calf with fat layer exposed Non-pressure chronic ulcer of unspecified part of left lower leg with fat layer exposed Obstructive sleep apnea Onycholysis Osteomyelitis of great toe of left foot Osteomyelitis of left foot Osteomyelitis of right foot Other hereditary and idiopathic neuropathies Other specified peripheral vascular diseases Peripheral vascular disease Sleep apnea Smoker 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 Tinea unguium Tobacco abuse Tobacco abuse Tobacco abuse counseling Tobacco dependence due to cigarettes Trauma of toe of right foot Type 2 diabetes mellitus with diabetic polyneuropathy Home Medications calcium carbonate 500 mg PO DAILY 06/23/17 [History Last Taken 06/23/17] multivitamin 1 ea PO DAILY 06/23/17 [History Last Taken 06/23/17] bupropion HCl 150 mg 24 hr tablet, extended release 150 mg PO BID tab 10/18/19 [History Last Taken 09/01/20 08:27] tamsulosin 0.4 mg capsule 0.4 mg PO DAILY@1730 cap 10/18/19 [History Last Taken 08/31/20 17:28] gabapentin 300 mg capsule 600 mg PO TIDCM cap 04/24/20 [History Last Taken 09/01/20 13:15] aspirin 81 mg tablet,delayed release 81 mg PO DAILY tab 07/28/20 [History Last Taken Unknown] lancets 09/01/20 [History Last Taken Unknown] acetaminophen 1,000 mg PO Q6H PRN tab 10/03/20 [Rx Last Taken Unknown] naproxen 500 mg tablet 500 mg PO BID PRN 10/31/20 [History Last Taken Unknown] blood-glucose transmitter #1 ea 11/30/20 [Rx Last Taken Unknown] blood sugar diagnostic #100 ea 08/06/21 [Rx Last Taken Unknown] flash glucose sensor #2 ea 08/23/21 [Rx Last Taken Unknown] dulaglutide 0.75 mg/0.5 mL subcutaneous pen injector 0.75 mg SUBCUT QWEEK #2 ml 11/14/21 [Rx Last Taken Unknown] lisinopril 40 mg tablet 40 mg PO DAILY #90 tab 11/21/21 [Rx Last Taken Unknown] doxepin 25 mg PO QHS 02/10/22 [History Last Taken Unknown] atorvastatin 80 mg PO QHS #0 tab 02/14/22 [Rx Last Taken Unknown] insulin glargine-yfgn 5 unit SUBCUT DAILY #0 ml 02/14/22 [Rx Last Taken Unknown] insulin lispro [Humalog KwikPen Insulin] See Protocol SUBCUT Q6 #0 ml 02/14/22 [Rx Last Taken Unknown] menthol-zinc oxide [Calmoseptine] 1 applic TOPICAL TID #0 g 02/14/22 [Rx Last Taken Unknown] acetaminophen 650 mg CO Q4H PRN 02/19/22 [History Last Taken Unknown] aluminum-magnesium hydroxide [Antacid] 30 ml PO Q4H PRN PRN 02/19/22 [History Last Taken Unknown] bisacodyl 10 mg CO DAILY PRN 02/19/22 [History Last Taken Unknown] dapagliflozin [Farxiga] 10 mg PO DAILY 02/19/22 [History Last Taken Unknown] dextrose [Glucose Gel] 10 g PO Q15M PRN 02/19/22 [History Last Taken Unknown] glucagon [Glucagon Emergency Kit] 1 mg IM PRN PRN 02/19/22 [History Last Taken Unknown] guaifenesin 200 mg PO Q4H PRN 02/19/22 [History Last Taken Unknown] magnesium hydroxide [Milk of Magnesia] 30 ml PO DAILY PRN 02/19/22 [History Last Taken Unknown] sodium phosphates [Fleet Enema] 118 ml CO DAILY PRN 02/19/22 [History Last Taken Unknown] Allergy/AdvReac Type Severity Reaction Status Date / Time No Known Allergies Allergy Verified 02/19/22 12:28 Family History Father Myocardial infarction Heart disease Mother Kidney disease Diabetes Sister Asthma Breast cancer Hypertension Brother Alcoholism Melanoma Surgical History History of ankle surgery History of deviated nasal septum History of hernia repair History of oral surgery 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 History of vasectomy Social History household members: none Smoking Status: Current every day smoker tobacco type: cigarettes alcohol intake: never substance use type: does not use what type of physical activity do you participate in: none ROS ROS ED Review of Systems ROS Unobtainable: due to mental status EXAM Physical Exam Const Vital Signs: 02/19/22 12:13 02/19/22 12:28 02/19/22 12:34 Temperature 102.0 F H Temperature Source Temporal Pulse Rate 126 H 123 H Respiratory Rate 41 H 45 H Respiratory Pattern Tachypnea Blood Pressure 126/75 H 102/64 Blood Pressure Mean 92 76 Pulse Ox 92 95 Oxygen Delivery Method Room Air Nasal Cannula Oxygen Flow Rate (L/min) 3 Fraction of Inspired Oxygen (FIO2) 02/19/22 12:38 02/19/22 13:04 02/19/22 13:06 Temperature 104 F H 104.2 F H Temperature Source Core Core Pulse Rate 123 H Respiratory Rate 28 H Respiratory Pattern Blood Pressure 102/75 Blood Pressure Mean 84 Pulse Ox 95 94 Oxygen Delivery Method Nasal Cannula Nasal Cannula Oxygen Flow Rate (L/min) 3 3 Fraction of Inspired Oxygen (FIO2) 100 02/19/22 13:12 02/19/22 13:21 02/19/22 14:02 Temperature 104.4 F H 104.4 F H 103.5 F H Temperature Source Core Rectal Core Pulse Rate 116 H 116 H 110 H Respiratory Rate 28 H 25 H 46 H Respiratory Pattern Blood Pressure 125/67 H 125/67 H 132/65 H Blood Pressure Mean 86 86 87 Pulse Ox 97 97 93 Oxygen Delivery Method Nasal Cannula Nasal Cannula Nasal Cannula Oxygen Flow Rate (L/min) 5 3 3 Fraction of Inspired Oxygen (FIO2) 02/19/22 15:09 02/19/22 15:57 02/19/22 16:00 Temperature 103.0 F H 103.1 F H 103.2 F H Temperature Source Core Core Core Pulse Rate 112 H 109 H 109 H Respiratory Rate 39 H 39 H 39 H Respiratory Pattern Blood Pressure 124/68 H 125/67 H 125/67 H Blood Pressure Mean 86 86 86 Pulse Ox 87 94 91 Oxygen Delivery Method Nasal Cannula Venturi Mask Venturi Mask Oxygen Flow Rate (L/min) 6 Fraction of Inspired Oxygen (FIO2) 50 50 02/19/22 16:47 Temperature Temperature Source Pulse Rate 98 Respiratory Rate 30 H Respiratory Pattern Blood Pressure 73/57 L Blood Pressure Mean 62 Pulse Ox 99 Oxygen Delivery Method Mechanical Ventilator Oxygen Flow Rate (L/min) Fraction of Inspired Oxygen (FIO2) 100 Positive well nourished and well developed Constitutional Narrative: Obtunded, in respiratory distress General Appearance ED: well developed HEENT Reports dry mucous membranes normocephalic and atraumatic Mouth ED: Yes dry mucous membranes Mouth: dry mucous membranes Eyes PERRL Eyes Narrative: Eyes open, blinks to confrontation but does not follow commands Neck supple and no meningeal signs Resp clear to auscultation bilaterally Resp Narrative: Tachypneic, in respiratory distress, almost Kusmal respirations Cardio regular rate and regular rhythm Rate: tachycardic GI non-tender and non-distended Auscultation: normoactive bowel sounds Palpation: soft Back/Spine Back/Spine Narrative: Large, necrotic foul-smelling sacral decubitus wound stage IV, no palpable abscess, no active discharge. Scrotum and perineum uninvolved. Extremity normal to inspection Extremity Narrative: Diminished pulses, 2-3-second cap refill General Extremety ED: Yes pulses abnormal; Negative for edema or tenderness General Extremity: pulses abnormal; Negative for edema Neuro Maci Coma Scale: document GCS findings (No movement, no withdrawal or localization to pain in any extremity, flaccid x4) Spontaneous None None 6 Skin no rashes or lesions noted Skin Narrative: Multiple chronic lower extremity wounds, do not appear to be infected MDM MDM MDM Narrative Medical decision making narrative: Septic work-up obtained, also considered DKA but ketones are negative and he is not acidotic on the ABG, lactate is 3.9, patient febrile and treated with rectal Tylenol, and lots of IV fluids. Urine is foul-smelling, cloudy, tea colored, positive nitrite, but not a lot of white blood cells. Sending for pancultures and will treat empirically with cefepime given that he is from a penit[facility], suspect the sacral wound is infectious etiology. Clinically, he is showing some purposeful movements, but still stupor ous. He seems to be protecting his airway for the most part, but we have not tried to give him anything to eat or drink for obvious reasons given his depressed mental status. Discussed with family, they confirm DNR-CCA and are still interested in medical care, not interested in hospice at this time but might be if medical treatment fails. Adding vancomycin due to the wound, and will obtain CT of the pelvis to determine extent of this prior to admission. CT showed subcutaneous gas. Discussed with surgery who agrees this is suspicious for necrotizing fasciitis. Therefore obtained anaerobic culture, aerobic culture of the area, added clindamycin, and discussed with family for tertiary care center transfer. Radiology concerned that this could be Mary's based on the images. I reexamined his scrotum and perineum and I do not see any wound in the perineum itself or subcutaneous emphysema that is palpable there. Discussed at length with family, they are comfortable with him going to the operating room if he needs to, and therefore they are okay with him being intubated in order to get to the operating room, they just do not want him dependent on breathing machine. I discussed with Dr. Cartagena with critical care at [facility] who accepts the patient. As we were waiting for a bed became available, reevaluated the patient and he became hypoxic requiring Ventimask, mouth breathing, and not pulling much air. Discussing more with the sons, I recommend that we intubate him now, and that I recommend full treatment for this condition or Hospice/palliative care; they are okay with him going to the operating room they agree that it would be narayanan to intubate him in order to get him to the tertiary care center. This was done, see proc note. Pt placed on Fentanyl gtt for sedation. Shortly after this, patient had a systolic blood pressure in the 50s. We hung a 5th L of IV fluids and infuse it under pressure, during this I placed a central line emergently in the left subclavian. After this, and the liter was finished, his pressure came up to 78 systolic. Levophed drip was started by protocol. Shortly after this, [facility] arrived for transport. Lab Data Attestation: I reviewed the patient's lab results. Labs: Laboratory Results - last 24 hr 02/19/22 02/19/22 02/19/22 12:15 12:18 12:18 WBC 16.9 H RBC 5.85 Hgb 16.6 H Hct 53.3 MCV 91.1 MCH 28.4 MCHC 31.1 L RDW Std Deviation 55.4 H RDW Coeff of Fatuma 17.3 H Plt Count 273 MPV 11.9 Immature Gran % (Auto) 0.700 Neut % (Auto) 85.1 H Lymph % (Auto) 8.5 L Daggett % (Auto) 5.1 Eos % (Auto) 0.2 Baso % (Auto) 0.4 Absolute Neuts (auto) 14.4 H Absolute Lymphs (auto) 1.43 Nucleated RBC % 0 PT 17.1 H INR 1.4 APTT 33.6 Sodium Potassium Chloride Carbon Dioxide Anion Gap BUN Creatinine Estim Creat Clear Calc Est GFR (MDRD) Af Amer Est GFR (MDRD) Non-Af BUN/Creatinine Ratio Glucose Lactic Acid Calcium Total Bilirubin AST ALT Alkaline Phosphatase Total Creatine Kinase Troponin I High Sens Total Protein Albumin Globulin Albumin/Globulin Ratio Urine Color Urine Clarity Urine pH Ur Specific [place] Urine Protein Urine Glucose (UA) Urine Ketones Urine Occult Blood Urine Nitrite Urine Bilirubin Urine Urobilinogen Ur Leukocyte Esterase Urine RBC Urine WBC Ur Squamous Epith Cells Urine Bacteria Urine Mucus Acetone Level POC Glucose 319 H 02/19/22 02/19/22 02/19/22 12:18 12:18 12:18 WBC RBC Hgb Hct MCV MCH MCHC RDW Std Deviation RDW Coeff of Fatuma Plt Count MPV Immature Gran % (Auto) Neut % (Auto) Lymph % (Auto) Daggett % (Auto) Eos % (Auto) Baso % (Auto) Absolute Neuts (auto) Absolute Lymphs (auto) Nucleated RBC % PT INR APTT Sodium 148 H Potassium 4.9 Chloride 118 H Carbon Dioxide 20.0 L Anion Gap 10 BUN 63 H Creatinine 2.40 H Estim Creat Clear Calc 34.68 Est GFR (MDRD) Af Amer 35 L Est GFR (MDRD) Non-Af 29 L BUN/Creatinine Ratio 26.2 H Glucose 358 H Lactic Acid 3.9 H* Calcium 8.7 Total Bilirubin 1.20 H AST 38 H ALT 34 Alkaline Phosphatase 87 Total Creatine Kinase Troponin I High Sens 41 Total Protein 6.8 Albumin 2.0 L Globulin 4.8 H Albumin/Globulin Ratio 0.4 L Urine Color Urine Clarity Urine pH Ur Specific [place] Urine Protein Urine Glucose (UA) Urine Ketones Urine Occult Blood Urine Nitrite Urine Bilirubin Urine Urobilinogen Ur Leukocyte Esterase Urine RBC Urine WBC Ur Squamous Epith Cells Urine Bacteria Urine Mucus Acetone Level NEGATIVE POC Glucose 02/19/22 02/19/22 12:18 12:41 WBC RBC Hgb Hct MCV MCH MCHC RDW Std Deviation RDW Coeff of Fatuma Plt Count MPV Immature Gran % (Auto) Neut % (Auto) Lymph % (Auto) Daggett % (Auto) Eos % (Auto) Baso % (Auto) Absolute Neuts (auto) Absolute Lymphs (auto) Nucleated RBC % PT INR APTT Sodium Potassium Chloride Carbon Dioxide Anion Gap BUN Creatinine Estim Creat Clear Calc Est GFR (MDRD) Af Amer Est GFR (MDRD) Non-Af BUN/Creatinine Ratio Glucose Lactic Acid Calcium Total Bilirubin AST ALT Alkaline Phosphatase Total Creatine Kinase 597 H Troponin I High Sens Total Protein Albumin Globulin Albumin/Globulin Ratio Urine Color Yellow Urine Clarity Sl. Cloudy Urine pH 5.0 Ur Specific [place] 1.025 Urine Protein 30 H Urine Glucose (UA) 1000 H Urine Ketones 5 H Urine Occult Blood 10 H Urine Nitrite Positive H Urine Bilirubin 3 H Urine Urobilinogen 8 H Ur Leukocyte Esterase 25 H Urine RBC 0-5 SEEN Urine WBC 0-5 SEEN Ur Squamous Epith Cells 0-5 SEEN Urine Bacteria 1+ Urine Mucus 0 SEEN Acetone Level POC Glucose ABG Data ABG results: ABG 02/19/22 12:54 Specimen Type ART Sample Site R Radial pH 7.46 H Bicarbonate Actual 19.3 L Total CO2 20 Base Excess -5 L O2 Saturation 95 ABG pCO2 27.5 L ABG pO2 72 L Rajeev Test Positive O2 Delivery Device Cannula Liter Flow 5.0 Radiography Chest X-Ray - ED: 1 View, Read by ED Physician, No Acute Disease and No Infiltrates Diagnostic Testing: Clinical Impression(s) from Imaging Studies Brain CT 02/19/22 12:23 IMPRESSION: Chronic involutional changes of the brain. Electronically Signed: John Gibbons MD at 13:13 EDT , Chest X-Ray 02/19/22 12:23 IMPRESSION: Residual pleural parenchymal changes at the right lung base although there has been improvement as compared to prior study. 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 N.B. : The above Results were Read Back by John Gibbons MD to Khari Zaman MD, and understanding confirmed on 02/19/2022 15:07:19 (ET). 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 N.B. : The above Results were Read Back by John Gibbons MD to Khari Zaman MD, and understanding confirmed on 02/19/2022 15:07:19 (ET). Electronically Signed: John Gibbons MD at 15:08 EDT , EKG Initial EKG: Attestation: I personally reviewed and interpreted this EKG as follows: Interpretation: No Acute Injury Pattern and Sinus Tachycardia Prior EKG tracings: available for review Prior: Unchanged Procedures Intubations Intubation Method: orotracheal (Pretreated with fentanyl, Versed, rocuronium; intubated w/ glidescope, visualizing 8.0F ETT passing through cords after removing thick secretions blocking visualization) Intubation Verification: Positive color change and Bilateral breath sounds confirmed Intubation Complications: no complications (placement confirmed w/ CXR, 23cm at the lip) Other Procedures Procedure(s): Central line placement: Prepped and draped patient in sterile fashion left subclavian vein site, finder needle found dark red nonpulsatile blood, placed 16 cm triple-lumen catheter via modified Seldinger technique, complicated by difficulty feeding the catheter after dilating the vessel and skin, so I removed it, placed an Angiocath over the guidewire, removing the guidewire it appeared to be in the venous lumen, so replacing the guidewire and catheter was successful then, confirmed by x-ray. Sutured in place, chlorhexidine disc, no complications otherwise tolerated well by the patient who is critically ill. Critical Care Time Critical Care Time: Yes Critical care time (excluding procedures): 75-104 minutes (75 min), Including time spent:, Discussing w/Patient &/or Family/Embedded Software Test Engineer, Discussing w/Consultants, Arranging Admission or Transfer and Performing Direct Patient Care at Bedside Discharge Plan Triage Chief Complaint: Unresponsive ED Provider: Khari Zaman Dx/Rx/DC Orders Clinical Impression: Septic shock, DEAN (acute kidney injury), Acute metabolic encephalopathy, Hyperglycemia due to type 2 diabetes mellitus, Wound of sacral region, Necrotizing fasciitis, Acute respiratory failure with hypoxia Prescriptions: No Action tamsulosin 0.4 mg capsule 0.4 mg PO DAILY@1730 RF: 0 bupropion HCl 150 mg tablet extended release 24 hr 150 mg PO BID RF: 0 aspirin [Adult Low Dose Aspirin] 81 mg tablet,delayed release (DR/EC) 81 mg PO DAILY RF: 0 naproxen 500 mg tablet 500 mg PO BID PRN (Reason: Pain) RF: 0 multivitamin 1 EACH tablet 1 ea PO DAILY RF: 0 calcium carbonate 500 MG tablet 500 mg PO DAILY RF: 0 gabapentin 300 mg capsule 600 mg PO TIDCM RF: 0 (DME) lancets 1 EACH misc See Rx Instructions .Route .MEDSUPPLY RF: 0 acetaminophen 500 MG tablet 1,000 mg PO Q6H PRN (Reason: Pain Score 1-5) RF: 0 doxepin 25 mg capsule 25 mg PO QHS RF: 0 atorvastatin 80 mg Tablet 80 mg PO QHS Qty: 0 RF: 0 insulin lispro [Humalog KwikPen Insulin] 100 unit/mL Insulin Pen See Protocol unit subcut Q6 Qty: 0 RF: 0 menthol-zinc oxide [Calmoseptine] 0.44-20.6 % Ointment 1 applic topical TID Qty: 0 RF: 0 insulin glargine-yfgn 100 unit/mL (3 mL) Insulin Pen 5 unit subcut DAILY Qty: 0 RF: 0 Glucagon Emergency Kit 1 mg Kit 1 mg IM PRN PRN (Reason: Hypoglycemia) RF: 0 acetaminophen 650 mg Suppository 650 mg CO Q4H PRN (Reason: pain/fever) RF: 0 dextrose [Glucose Gel] 40 % Gel 10 g PO Q15M PRN (Reason: Hypoglycemia) RF: 0 magnesium hydroxide [Milk of Magnesia] 400 mg/5 mL Suspension 30 ml PO DAILY PRN (Reason: Constipation) RF: 0 bisacodyl 10 mg Suppository 10 mg CO DAILY PRN (Reason: Constipation) RF: 0 Antacid 225-200 mg/5 mL Suspension 30 ml PO Q4H PRN PRN (Reason: Indigestion) RF: 0 Fleet Enema 19-7 gram/118 mL Enema 118 ml CO DAILY PRN (Reason: Constipation) RF: 0 guaifenesin 200 mg/5 mL Liquid 200 mg PO Q4H PRN (Reason: Cough) RF: 0 Farxiga 10 mg Tablet 10 mg PO DAILY RF: 0 (DME) Dexcom G6 Transmitter Device See Rx Instructions .ROUTE .MEDSUPPLY Qty: 1 RF: 1 (DME) OneTouch Verio test strips Strip See Rx Instructions .ROUTE .MEDSUPPLY Qty: 100 RF: 8 (DME) FreeStVideoplaza Heather 2 Sensor Kit See Rx Instructions .ROUTE .MEDSUPPLY Qty: 2 RF: 6 Trulicity 0.75 mg/0.5 mL pen injector 0.75 mg subcut QWEEK Qty: 2 RF: 3 lisinopril 40 mg tablet 40 mg PO DAILY Qty: 90 RF: 0 Primary Care Provider: Jaime Meyer Chi Referrals: Jaime Meyer Chi, MD [Primary Care Provider] - Disposition Disposition: Acute Care Hospital Discharge Location: [facility]
[2022-02-19] MEDS: 0.9% Normal Saline 1,000 ML 999 ML IV ×5 (12:32→17:26)
[2022-02-19] MEDS: Acetaminophen 650 MG Suppository RC (12:36)
[2022-02-19 12:42] LABS: Mucous, Urine 0 SEEN /hpf (<or=2+)
[2022-02-19 12:42] LABS: Absolute Lymphocyte Count 1.43 X10^3/uL (0.83-4.51); Absolute Neutrophil Count 14.4 X10^3/uL (2.0-7.7); Basophil# 0.06 X10^3/uL; Basophil% 0.4 % (0-1); Eosinophil# 0.03 X10^3/uL; Eosinophils% 0.2 % (0-5); Hematocrit 53.3 % (40-54); Hemoglobin 16.6 g/dL (13.0-16.5); Lymphocyte # 1.43 X10^3/ul (0.83-4.51); Lymphocyte % 8.5 % (19-41); Mean Corp Hgb Conc 31.1 g/dL (32-36); Mean Corpuscular Hgb 28.4 pg (27.0-32.0); Mean Corpuscular Volume 91.1 fL (80-94); Mean Platelet Vol. 11.9 fl (6.2-12.0); Monocyte# 0.86 X10^3/uL; Monocyte% 5.1 % (0-10); NRBC Flagged by Analyzer 0 % (0-5); Neutrophil # 14.42 X10^3/uL (2.7-7.7); Neutrophil % 85.1 % (47-70); Platelet Count 273 K/mm3 (150-450); RBC Distribution Width CV 17.3 % (11.6-14.6); RBC Distribution Width SD 55.4 fl (35.1-43.9); Red Blood Count 5.85 M/mm3 (4.6-6.2); White Blood Count 16.9 K/mm3 (4.4-11.0)
[2022-02-19 12:50] LABS: International Normalized Ratio 1.4; Prothrombin Time (Protime)PT. 17.1 SECONDS (11.7-14.9)
[2022-02-19 12:51] LABS: Partial Thromboplast Time 33.6 Seconds (24.1-36.2)
--- NOTE | 2022-02-19 12:51 | CM.ED ---
Social Work Note ROBBIN updated that pt presented to [facility] with unresponsiveness. Pt's sister Marybeth present at [facility]. ROBBIN and Joanna MIDDLETON met with pt's sister and provided support. Marybeth states pt was at [facility]. Marybeth states that pt does not have a , states that pt has two sons. [place] [facility] [place] one that lives in [facility]. Marybeth states that both sons are on their way to [facility]. Pt's son Matthew now present at [facility]. ROBBIN introduced Joanna and this worker to Matthew. Matthew states for pt to not be on the vent and to have no extraordinary measures. Physician Junie updated. Madai Andrade [employer], [employer] SUPERVISOR
[2022-02-19 12:54] LABS: Color, Urine Yellow (Yellow); Glucose, Dipstick 1000 mg/dl (Normal); Ketone-Dipstick 5 mg/dl (Negative); Leukocyte Esterase-Dipstick 25 /ul (Negative); Nitrite-Dipstick Positive (Negative); Occult Blood-Urine 10 /ul (Negative); Protein-Dipstick 30 mg/dl (Negative); Specific Gravity, Urine 1.025 (1.002-1.030); Urine Clarity Sl. Cloudy (Clear); Urine Urobilinogen 8 mg/dl (Normal)
[2022-02-19 13:00] LABS: Allen Test Positive; Base Excess -5 mmol/L (-2 to +2); Bicarbonate 19.3 mmol/L (22-26); Blood Gas Specimen Type ART; O2 Delivery Device Cannula; PO2 72 mmHG (75-100); SITE R Radial; SO2 95 % (95-99); Total Carbon Dioxide 20 mmol/L; pCO2 27.5 mmHg (35-45); pH 7.46 (7.35-7.45)
[2022-02-19 13:02] LABS: ALB/GLOB Ratio 0.4 RATIO (0.9-2.4); AST(SGOT) 38 U/L (15-37); Alanine Aminotransfer ALT/SGPT 34 U/L (16-61); Alkaline Phosphatase 87 U/L (45-117); Anion Gap 10 (5-15); BUN 63 mg/dL (7-18); BUN/Creat Ratio 26.2 RATIO (10-20); Calcium,Total 8.7 mg/dL (8.5-10.1); Chloride 118 mmol/L (98-107); EST Glomerular Filtration Rate 29 mL/min (>60); Est Glom Filt Rate - Afr Amer 35 mL/min (>60); Estimated Creatinine Clearance 34.68 ml/min; Globulin 4.8 g/dL (2.2-4.2); Glucose 358 mg/dL (74-106); Potassium 4.9 mmol/L (3.5-5.1); Protein, Total 6.8 g/dL (6.4-8.2); Sodium Level 148 mmol/L (136-145); Troponin-I HS 41 pg/mL (3.0-78.0)
[2022-02-19 13:13] LABS: Lactic Acid 3.9 mmol/L (0.4-1.9)
[2022-02-19 13:30] LABS: CPK Total, Creatine Kinase 597 U/L (39-308)
[2022-02-19 13:51] LABS: Urine Bilirubin Dipstick 3 mg/dL (Negative)
[2022-02-19 13:53] LABS: Bacteria 1+ /hpf (None Seen); Red Blood Cells-Urine 0-5 SEEN /hpf (0-5); Squamous Epithelial Cells - UA 0-5 SEEN /hpf (0-5); White Blood Cells 0-5 SEEN /hpf (0-5)
--- NOTE | 2022-02-19 14:06 | HP.PCM.HOS_ITS ---
HPI - General HPI Narrative GEN SIM, is a 66 M with a PMH as outlined who presents via the ED after being found unresponsive in his SNF. Family was recently admitted and discharged to the SNF. Family visited, and found him to be minimally responsive. Family alerted [facility] staff, who didnt seem to know much about the patient. EMS was called and he was sent to the ED. I was unable to get any further history from patient as he was encephalopathic and sons could also not give any further information VItals in the ED were BP of 132/65, RI of 110, RR of 46 and temp of 103.5F. CBC showed Hb of 16.6, wbc of 16.9, platelets of 273. BMp showed sodium of 148, potassium of 4.9, bicarb of 20 and lactic acid of 3.9.Total bilirubin was 1.2 and CPK was 597. Urinalysis showed positive nitrites and 1+ bacteria. CXR showed residual parenchymal changes at hte right lung base, and CT brain showed chronic involutional changes. Family didnt want CPR or intubation or central line, and wanted him admitted for hydration and antibiotics. He was started on IV zosyn in the ED and is being admitted to be managed for acute metabolic encephalopathy and severe sepsis due to UTI and infected sacral decubitus ulcer. [facility] Medical History (Updated 02/19/22 @ 15:[address] 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 bone Chronic ulcer of left foot with necrosis of muscle Chronic ulcer of right foot with fat layer exposed Chronic ulcer of right foot with necrosis of muscle Corns and callosities CPAP (continuous positive airway pressure) dependence Debility Delayed wound healing Diabetic infection of left foot Diabetic neuropathy Diabetic polyneuropathy Diabetic ulcer of left foot Difficulty in walking, not elsewhere classified Difficulty walking Erectile dysfunction Fissure in skin of foot HTN (hypertension) Hyperlipidemia Localized edema Mixed hyperlipidemia Morbid obesity due to excess calories MRSA (methicillin resistant staph aureus) culture positive Neuropathic pain Non-pressure chronic ulcer of other part of left foot with fat layer exposed Non-pressure chronic ulcer of other part of right foot with fat layer exposed Non-pressure chronic ulcer of right calf with fat layer exposed Non-pressure chronic ulcer of unspecified part of left lower leg with fat layer exposed Obstructive sleep apnea Onycholysis Osteomyelitis of great toe of left foot Osteomyelitis of left foot Osteomyelitis of right foot Other hereditary and idiopathic neuropathies Other specified peripheral vascular diseases Peripheral vascular disease Sleep apnea Smoker 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 Tinea unguium Tobacco abuse Tobacco abuse Tobacco abuse counseling Tobacco dependence due to cigarettes Trauma of toe of right foot Type 2 diabetes mellitus with diabetic polyneuropathy Home Medications calcium carbonate 500 mg PO DAILY 06/23/17 [History Last Taken 06/23/17] multivitamin 1 ea PO DAILY 06/23/17 [History Last Taken 06/23/17] bupropion HCl 150 mg 24 hr tablet, extended release 150 mg PO BID tab 10/18/19 [History Last Taken 09/01/20 08:27] tamsulosin 0.4 mg capsule 0.4 mg PO DAILY@1730 cap 10/18/19 [History Last Taken 08/31/20 17:28] gabapentin 300 mg capsule 600 mg PO TIDCM cap 04/24/20 [History Last Taken 09/01/20 13:15] aspirin 81 mg tablet,delayed release 81 mg PO DAILY tab 07/28/20 [History Last Taken Unknown] lancets 09/01/20 [History Last Taken Unknown] acetaminophen 1,000 mg PO Q6H PRN tab 10/03/20 [Rx Last Taken Unknown] naproxen 500 mg tablet 500 mg PO BID PRN 10/31/20 [History Last Taken Unknown] blood-glucose transmitter #1 ea 11/30/20 [Rx Last Taken Unknown] blood sugar diagnostic #100 ea 08/06/21 [Rx Last Taken Unknown] flash glucose sensor #2 ea 08/23/21 [Rx Last Taken Unknown] dulaglutide 0.75 mg/0.5 mL subcutaneous pen injector 0.75 mg SUBCUT QWEEK #2 ml 11/14/21 [Rx Last Taken Unknown] lisinopril 40 mg tablet 40 mg PO DAILY #90 tab 11/21/21 [Rx Last Taken Unknown] doxepin 25 mg PO QHS 02/10/22 [History Last Taken Unknown] atorvastatin 80 mg PO QHS #0 tab 02/14/22 [Rx Last Taken Unknown] insulin glargine-yfgn 5 unit SUBCUT DAILY #0 ml 02/14/22 [Rx Last Taken Unknown] insulin lispro [Humalog KwikPen Insulin] See Protocol SUBCUT Q6 #0 ml 02/14/22 [Rx Last Taken Unknown] menthol-zinc oxide [Calmoseptine] 1 applic TOPICAL TID #0 g 02/14/22 [Rx Last Taken Unknown] acetaminophen 650 mg RI Q4H PRN 02/19/22 [History Last Taken Unknown] aluminum-magnesium hydroxide [Antacid] 30 ml PO Q4H PRN PRN 02/19/22 [History Last Taken Unknown] bisacodyl 10 mg RI DAILY PRN 02/19/22 [History Last Taken Unknown] dapagliflozin [Farxiga] 10 mg PO DAILY 02/19/22 [History Last Taken Unknown] dextrose [Glucose Gel] 10 g PO Q15M PRN 02/19/22 [History Last Taken Unknown] glucagon [Glucagon Emergency Kit] 1 mg IM PRN PRN 02/19/22 [History Last Taken Unknown] guaifenesin 200 mg PO Q4H PRN 02/19/22 [History Last Taken Unknown] magnesium hydroxide [Milk of Magnesia] 30 ml PO DAILY PRN 02/19/22 [History Last Taken Unknown] sodium phosphates [Fleet Enema] 118 ml RI DAILY PRN 02/19/22 [History Last Taken Unknown] Allergy/AdvReac Type Severity Reaction Status Date / Time No Known Allergies Allergy Verified 02/19/22 12:28 Family History Father Myocardial infarction Heart disease Mother Kidney disease Diabetes Sister Asthma Breast cancer Hypertension Brother Alcoholism Melanoma Surgical History History of ankle surgery History of deviated nasal septum History of hernia repair History of oral surgery 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 History of vasectomy Social History household members: none Smoking Status: Current every day smoker tobacco type: cigarettes alcohol intake: never substance use type: does not use what type of physical activity do you participate in: none ROS Review of Systems ROS Unobtainable: due to encephalopathy Vital Signs Vital Signs Vital Signs: 02/19/22 12:13 02/19/22 12:28 02/19/22 12:34 Temperature 102.0 F H Temperature Source Temporal Pulse Rate 126 H 123 H Respiratory Rate 41 H 45 H Respiratory Pattern Tachypnea Blood Pressure 126/75 H 102/64 Blood Pressure Mean 92 76 Pulse Ox 92 95 Oxygen Delivery Method Room Air Nasal Cannula Oxygen Flow Rate (L/min) 3 Fraction of Inspired Oxygen (FIO2) 02/19/22 12:38 02/19/22 13:04 02/19/22 13:06 Temperature 104 F H 104.2 F H Temperature Source Core Core Pulse Rate 123 H Respiratory Rate 28 H Respiratory Pattern Blood Pressure 102/75 Blood Pressure Mean 84 Pulse Ox 95 94 Oxygen Delivery Method Nasal Cannula Nasal Cannula Oxygen Flow Rate (L/min) 3 3 Fraction of Inspired Oxygen (FIO2) 100 02/19/22 13:12 02/19/22 13:21 02/19/22 14:02 Temperature 104.4 F H 104.4 F H 103.5 F H Temperature Source Core Rectal Core Pulse Rate 116 H 116 H 110 H Respiratory Rate 28 H 25 H 46 H Respiratory Pattern Blood Pressure 125/67 H 125/67 H 132/65 H Blood Pressure Mean 86 86 87 Pulse Ox 97 97 93 Oxygen Delivery Method Nasal Cannula Nasal Cannula Nasal Cannula Oxygen Flow Rate (L/min) 5 3 3 Fraction of Inspired Oxygen (FIO2) Weight Weight: 309 lb 15.519 oz Body Mass Index (BMI) 40.8 Physical Exam Const Constitutional Narrative: confused, acute metabolic encephalopathy, somnolent HEENT normocephalic and head/scalp atraumatic Eyes PERRL Neck no lymphadenopathy and supple Resp Resp Narrative: tachypneic, diminished breath sounds bibasally, coarse crackles bilaterally in all lung zambrano; on 3L of oxygen by nasal canula Cardio regular rhythm, S1 normal heart sound, S2 normal heart sound and no murmurs Cardio Narrative: tachcyardic GI normal to inspection, nondistended, normoactive bowel sounds, soft to palpation, non-tender and non-distended Extremity normal to inspection Peripheral Pulses: Yes pulses 2+ throughout Skin Skin Narrative: stage 4 sacral decubitus ulcer; present on admission. Ulcer is necrotic, with thick, black slough in the floor of the ulcer, very offensive discharge. Neuro Neuro Narrative: confused, encephalopathic Results Lab / Micro Data Result Diagrams: 02/19/22 12:18 02/19/22 12:18 Labs: Laboratory Results - last 24 hr 02/19/22 12:15: POC Glucose 319 H 02/19/22 12:18: WBC 16.9 H, RBC 5.85, Hgb 16.6 H, Hct 53.3, MCV 91.1, MCH 28.4, MCHC 31.1 L, RDW Std Deviation 55.4 H, RDW Coeff of Fatuma 17.3 H, Plt Count 273, MPV 11.9, Immature Gran % (Auto) 0.700, Neut % (Auto) 85.1 H, Lymph % (Auto) 8.5 L, [place] % (Auto) 5.1, Eos % (Auto) 0.2, Baso % (Auto) 0.4, Absolute Neuts (auto) 14.4 H, Absolute Lymphs (auto) 1.43, Nucleated RBC % 0 02/19/22 12:18: PT 17.1 H, INR 1.4, APTT 33.6 02/19/22 12:18: Sodium 148 H, Potassium 4.9, Chloride 118 H, Carbon Dioxide 20.0 L, Anion Gap 10, BUN 63 H, Creatinine 2.40 H, Estim Creat Clear Calc 34.68, Est GFR (MDRD) Af Amer 35 L, Est GFR (MDRD) Non-Af 29 L, BUN/Creatinine Ratio 26.2 H , Glucose 358 H, Calcium 8.7, Total Bilirubin 1.20 H, AST 38 H, ALT 34, Alkaline Phosphatase 87, Troponin I High Sens 41, Total Protein 6.8, Albumin 2.0 L, Globulin 4.8 H, Albumin/Globulin Ratio 0.4 L 02/19/22 12:18: Acetone Level NEGATIVE 02/19/22 12:18: Lactic Acid 3.9 H* 02/19/22 12:18: Total Creatine Kinase 597 H 02/19/22 12:41: Urine Color Yellow, Urine Clarity Sl. Cloudy, Urine pH 5.0, Ur Specific [place] 1.025, Urine Protein 30 H, Urine Glucose (UA) 1000 H, Urine Ketones 5 H, Urine Occult Blood 10 H, Urine Nitrite Positive H, Urine Bilirubin 3 H, Urine Urobilinogen 8 H, Ur Leukocyte Esterase 25 H, Urine RBC 0-5 SEEN, Urine WBC 0-5 SEEN, Ur Squamous Epith Cells 0-5 SEEN, Urine Bacteria 1+, Urine Mucus 0 SEEN Micro: Microbiology 02/19/22 12:44 Nasal Secretion SARS-CoV-2 & FLU Antigen (Rapid) - Final ABG Data ABG results: ABG 02/19/22 12:54 Specimen Type ART Sample Site R Radial pH 7.46 H Bicarbonate Actual 19.3 L Total CO2 20 Base Excess -5 L O2 Saturation 95 ABG pCO2 27.5 L ABG pO2 72 L Rajeev Test Positive O2 Delivery Device Cannula Liter Flow 5.[address] 02/19/22 12:23 IMPRESSION: Chronic involutional changes of the brain. Electronically Signed: John Gibbons MD at 13:13 EDT , Chest X-Ray 02/19/22 12:23 IMPRESSION: Residual pleural parenchymal changes at the right lung base although there has been improvement as compared to prior study. Electronically Signed: John Gibbons MD at 13:15 EDT , Assessment & Plan Assessment/Plan (1) Severe sepsis: (2) DEAN (acute kidney injury): (3) Decubitus ulcer of back, stage 4: PLAN: #Severe sepsis due to stage 4 necrotic sacral decubitus ulcer and UTI * admit to PCU * hydrate aggressively with IVF * start on IV cefepime and vancomycin * get wound cultures * consult general surgery; plastic surgery not available. Dr Light informed verbally * get blood cultures * consult wound care * CT of the lumbar spine ordered and pending. * #Acute metabolic encephalopathy due to severe sepsis * management as above * patient is somnolent and barely responsive * aspiration precautions * keep NPO for now * family doesnt want him intubated * #Hypernatremia * sodium is 148. Likely due to dehydration in setting of sepsis * hydrate with IVF and trend sodium * #DEAN * CR is 2.4, with baseline of 0.73 * likely due to severe sepsis * hydrate aggressively with IVF and trend Cr * #TYpe 2 diabetes mellitus * hold lantus and dulaglutide. ISS. Accuchecks ACHS * #Hypertension * on lisinopril. Will hold o/a of DEAN * IV hydralazine prn * #Hyperlipidemia: on statin. Hold as patient is NPO #ANT: hold CPAP as he is quite somnolent and may not be able to protect his airway. Currently on 3L of oxygen by nasal canula #GERD * on PPI. has a history of Kalie Acevedo tear and gastritis per EGD * on PPI * #BPH: on flomax DVT prophylaxis: lovenox, renally dosed COde status: DNRCCA no intubation * Patien's sons counseled extensively about different types of CODE STATUS including full code, DNR CCA and DNR CCA. Patient's sons elect for him to be DNRCCA no intubation. * Patient also has paperwork from SNF where he has elected to be DNRCCA no intubation * total face to face time 18 mins. 2:55pm: CT scan was evaluated by Dr Light who said patient had necrotizing fasciitis and so would need to be transferred to a tertiary facility. ED physician Dr Zaman informed. Patient to be transferred. Charges/Coding Procedures Hospitalists Procedures: 62099 Advncd Care Plan 30 Min Multi Select Codes Visit Charges Office Visit/Consults: 38484 IP Consult L5
--- NOTE | 2022-02-19 14:13 | CT_ITS ---
STUDY: CT ABDOMEN AND PELVIS WITHOUT CONTRAST REASON FOR EXAM: Male, 66 years old. Sacral wound w/ infection. Fever. Sacral decubitus wound. RADIATION DOSAGE (If Supplied By Facility): CTDIvol = ( 33.65 ) mGy, DLP = ( 2278.58 ) mGycm TECHNIQUE: Transaxial images were obtained from the dome of the diaphragm to the symphysis pubis without oral contrast, and without intravenous contrast. Sagittal and coronal images were reconstructed. Individualized dose optimization techniques were used for this CT. COMPARISON: None. FINDINGS: Right lower lobe infiltrate. Mild increased markings at the left lung base. The visualized portions of the heart are within normal limits. Normal liver. Sludge versus small gallstones seen in the gallbladder lumen. Normal spleen. There is diffuse atrophy of the pancreas. Normal bilateral adrenal glands. Normal right kidney. Normal left kidney. There is a small hiatal hernia. Normal small intestine. Normal colon. The appendix is visualized and appears normal. Normal abdominal aorta. Normal inferior vena cava. Normal retroperitoneum. Linear collection of air is seen in the subcutaneous tissues of the right and left buttocks more prominent on the right side. This extends into the perineum and base of the penis on the right side.. There is evidence of a focal soft tissue ulceration. Mary gangrene should be ruled out. A ROGERS catheter is seen within a decompressed urinary bladder. Central prostatic calcification. Mild degree of presacral soft tissue thickening. Moderate sized umbilical hernia containing fat. The neck of the hernia measures 3.1 cm. Normal osseous structures. 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 N.B. : The above Results were Read Back by John Gibbons MD to Khari Zaman MD, and understanding confirmed on 02/19/2022 15:07:19 (ET). Electronically Signed: John Gibbons MD at 15:08 EDT ,
[2022-02-19] MEDS: fentaNYL 100 MCG/2 ML Ampul IV (16:18)
[2022-02-19] MEDS: Midazolam 5 MG/ML Syringe 4 MG IV (16:18)
[2022-02-19] MEDS: Rocuronium Bromide 50 MG/5 ML Vial 100 MG IV (16:20)
[2022-02-19 16:37] LABS: Reflex Lactate? Y
[2022-02-19] MEDS: 0.9% Normal Saline 1,000 ML 250 ML IV (17:00)
--- NOTE | 2022-02-19 17:00 | RAD_ITS ---
STUDY: X-RAY CHEST REASON FOR EXAM: Male, 66 years old. Endotracheal tube placement. TECHNIQUE: Single AP portable view of the chest. COMPARISON: 02/19/2022 ([id number]). FINDINGS: There is an endotracheal tube with its tip approximately 6.6 cm above the mohsen. There is an enteric tube extending below the left hemidiaphragm. Left subclavian central venous catheter with its tip in the proximal superior vena cava. No pneumothorax. There is linear atelectasis at the right lung base without acute infiltrate or mass. There is no demonstrated pleural abnormality. Normal size heart. Normal mediastinum and meche. Normal visualized pulmonary arteries. Normal visualized aortic arch and descending thoracic aorta. There are diffuse degenerative changes of the visualized thoracic spine. There is degenerative osteoarthritis of the bilateral shoulders. There is no demonstrated abnormality of the visualized soft tissue structures of the upper abdomen. RAD/Chest 1 View (Portable) IMPRESSION: 1. Tubes and catheters as described. There is no pneumothorax. 2. Minimal right basilar atelectasis without other interval change. Electronically Signed: Brandon Montoya DO at 17:43 EDT ,
[2022-02-19 17:21] LABS: Base Excess -6 mmol/L (-2 to +2); Bicarbonate 18.8 mmol/L (22-26); Blood Gas Specimen Type ART; FI02 100; O2 Delivery Device Adult Vent; PO2 197 mmHG (75-100); RR 30; SITE L Radial; SO2 100 % (95-99); Total Carbon Dioxide 20 mmol/L; pCO2 31.6 mmHg (35-45); pH 7.38 (7.35-7.45)
--- NOTE | 2022-02-19 17:47 | ED.RN ---
norepinephrine 32mcg/ml started by air transport team. 250 ml rate of normal saline continued for transport. antolin hernández rn [id number]
--- NOTE | 2022-02-21 02:13 | ED.RN ---
lab called with critical blood culture results. gram negative in rods. patient was transferred to [facility]. spoke with domi in icu and updated on results. results. faxed to [facility] at this time
== END 2022-02-19 18:30 | disposition short-term general hospital (02) ==
LOC: ED 13:44 → PCU 14:35 → ED 17:08
PROVIDERS: Emergency Medicine; Emergency Provider Student in an Organized Health Care Education/Training Program; PCP Family Medicine Geriatric Medicine; Visit Provider Student in an Organized Health Care Education/Training Program
DX: A41.9 Sepsis, unspecified organism (principal); E11.51 Type 2 diabetes mellitus with diabetic peripheral angiopathy without gangrene; N17.9 Acute kidney failure, unspecified; M72.6 Necrotizing fasciitis; R65.21 Severe sepsis with septic shock; E11.40 Type 2 diabetes mellitus with diabetic neuropathy, unspecified; E11.22 Type 2 diabetes mellitus with diabetic chronic kidney disease; E11.65 Type 2 diabetes mellitus with hyperglycemia; J96.01 Acute respiratory failure with hypoxia; Z79.4 Long term (current) use of insulin; S31.000A Unspecified open wound of lower back and pelvis without penetration into retroperitoneum, initial encounter; G93.41 Metabolic encephalopathy; I12.9 Hypertensive chronic kidney disease with stage 1 through stage 4 chronic kidney disease, or unspecified chronic kidney disease; N18.2 Chronic kidney disease, stage 2 (mild); E78.2 Mixed hyperlipidemia; G47.33 Obstructive sleep apnea (adult) (pediatric); F17.210 Nicotine dependence, cigarettes, uncomplicated; N40.0 Benign prostatic hyperplasia without lower urinary tract symptoms; Z79.82 Long term (current) use of aspirin; Z79.899 Other long term (current) drug therapy; X58.XXXA Exposure to other specified factors, initial encounter
CPT/HCPCS: 31500; 31720; 36556; 36600; 51702; 70450; 71045; 74176; 80053; 81001; 82009; 82550; 82803; 82962; 83605; 84484; 85025; 85610; 85730; 87040; 87070; 87075; 87077; 87086; 87186; 87205; 87428; 93005; 94002; 99251; 99285; J7030; J7040; J7050; A4216; C1751; G0463

== ENCOUNTER → 2022-02-19 | Outpatient (REF) | payer SELFPAY ==
[2022-02-19 08:59] LABS: Hematocrit 53.8 % (40-54); Hemoglobin 16.4 g/dL (13.0-16.5); Mean Corp Hgb Conc 30.5 g/dL (32-36); Mean Corpuscular Hgb 28.1 pg (27.0-32.0); Mean Corpuscular Volume 92.3 fL (80-94); Mean Platelet Vol. 12.8 fl (6.2-12.0); Platelet Count 273 K/mm3 (150-450); RBC Distribution Width CV 17.4 % (11.6-14.6); RBC Distribution Width SD 56.2 fl (35.1-43.9); Red Blood Count 5.83 M/mm3 (4.6-6.2); White Blood Count 18.4 K/mm3 (4.4-11.0)
[2022-02-19 09:58] LABS: ALB/GLOB Ratio 0.4 RATIO (0.9-2.4); AST(SGOT) 22 U/L (15-37); Alanine Aminotransfer ALT/SGPT 33 U/L (16-61); Alkaline Phosphatase 123 U/L (45-117); Anion Gap 13 (5-15); BUN 50 mg/dL (7-18); BUN/Creat Ratio 25.1 RATIO (10-20); Bilirubin, Direct 0.49 mg/dL (0.00-0.30); CPK Total, Creatine Kinase 145 U/L (39-308); Calcium,Total 8.8 mg/dL (8.5-10.1); Chloride 117 mmol/L (98-107); Cholesterol 54 mg/dL (200); Creatinine, Serum 1.99 mg/dL (0.70-1.30); EST Glomerular Filtration Rate 36 mL/min (>60); Est Glom Filt Rate - Afr Amer 44 mL/min (>60); Globulin 4.8 g/dL (2.2-4.2); Glucose 330 mg/dL (74-106); High Density Lipoprotein 33 mg/dL; Potassium 4.6 mmol/L (3.5-5.1); Protein, Total 6.8 g/dL (6.4-8.2); Sodium Level 148 mmol/L (136-145); Triglycerides 69 mg/dL; Very Low Density Lipoprotein 14 mg/dL (5-40)
[2022-02-19 10:26] LABS: Hemoglobin A1c 6.7 % (3.8-5.6)
== END | disposition home or self-care (01) ==
LOC: OLS.SW1020 04:00
PROVIDERS: PCP Family Medicine Geriatric Medicine; Referring Provider Family Medicine; Visit Provider Family Medicine
DX: G93.41 Metabolic encephalopathy (principal); E11.42 Type 2 diabetes mellitus with diabetic polyneuropathy; M62.82 Rhabdomyolysis
CPT/HCPCS: 36415; 80053; 80061; 82248; 82550; 83036; 85027